=== PATIENT | female | born 1955 | race Caucasian/White ===

== ENCOUNTER → 2016-07-17 | Outpatient (CLI) | payer MEDICARE, MEDICAID ==
[~2016-07-17] MED LIST: AC325T; AC325T PO; AC500T PO; ACET-461 PO; ACET-93 PO; ACHD5005 PO; ALBU17AE3 IH; ALBU2.5V4 IH; ALBU8.5H2 IH; ALBUTERAL INHALER; ALPR.25T; ASP325TEC; ASPI-587 PO; ASPI-875 PO; ATOR20TA66 PO; ATR20T PO; ATRV10T PO; CALC-656 PO; CATHETER FLUSH 10 ML SYR IV PRN; CLIN300C11 PO; CLIN300C3 PO; COZ; CYCL10TA9 PO; DICY20TA57 PO; DOCU-143 PO; DOCU100C37 PO; DOCU50LI PO; DOXY100C2 PO; ENXP40I.4 SC; ESOM20SU PO; FLC100T1 PO; FURO-124 PO; FURO40TA4 PO; GABA250S2 PO; GBPN300C PO; HYDR-1231 PO; HYDR-3583 PO; HYDR-3812 PO; HYDR-3816 PO; HYDR-623; HYDR-757; HYDR-757 PO; HYDR1TAB66 PO; HYOS0.1283 SL; IBP800T PO; IBUP-1773 PO; INDO50CA PO; IOHEXOL 350 MG/ML 100 ML (OMNIPAQUE 350) VIAL IV ONE; IPRA3AMP19 IH; KETO10TA77 PO; LEVO125T6 PO; LEVO137T2; LEVO150T6 PO; LEVO500T69 PO; LVT.1T PO; Levothyroxine PO; Lipitor; MELO-195; METF500T4 PO; METO-333 PO; METO10TA3 PO; METR500T PO; MTP25TSR; NAPR-243 PO; NF-ESOM40C; NS 100 ML (IVPB) BAG IV ONE; NTR.4SL; OMEP20CA12 PO; OMEP20TA2 PO; OMEP40CA36 PO; ONDA-42 SL; ONDA4TAB8 PO; ONDA8TAB13 PO; ORPH100T PO; OXYC-12 PO; PHEN200T27 PO; PNT40TEC PO; POLY119P PO; POTA-53 PO; PRD20T PO; PROM25SU10 PR; RIVA20TA; RIVA20TA2 PO; SIME80TA16 PO; SIMV10TA3 PO; SUCR1TAB PO; SULF-222 PO; SULF1TAB35 PO; TEMA15CA54; THYR60TA4 PO; THYR90TA PO; TRAM-42 PO; TRAM50TA2 PO; TRM50T PO; WARF-48 PO; WARF5TAB PO; WARF6TAB PO; WARF6TAB7 PO; WARF7.5T PO; WARF7.5T49 PO; WRF2.5T PO; WRF3T PO; WRF5T PO; [UNRECOGNIZED DRUG - OTHER]
--- OUTSIDE RECORDS SUMMARY | 2016-07-17 07:03 | XMS REPORT | Continuity of Care Document ---
Author Author [facility] Organization [facility] Address Unknown Phone Unavailable Care Team Providers Care Drama Therapist Name Role Phone CanalesHellenTimmy PCP [phone] Source Comments Some departments are not documenting in the electronic medical record. If you do not see the information that you expected, contact Release of Information in the Health Information Management department at [phone] for further assistance in locating additional records.[facility] Active Allergies and Adverse Reactions Allergen Noted Date Severity Reactions Comments Adhesive Tape (Rosins) 03/23/2014 RASH Levothyroxine 03/23/2014 RASH Nexium 03/23/2014 ANAPHYLAXIS Penicillin G 03/23/2014 HIVES Current Medications Prescription Sig. Disp. Refills Start End Date Status Date atorvastatin (LIPITOR) 20 Take 20 mg by mouth Active mg tablet daily. naproxen sodium (ANAPROX) Take 550 mg by mouth Active 550 mg tablet twice daily with meals. rivaroxaban (XARELTO) 20 Take 20 mg by mouth. Active mg tab tablet omeprazole DR(+) Take 20 mg by mouth Active (PRILOSEC) 20 mg capsule daily. BABY ASPIRIN PO Take by mouth. Active HYDROcodone/acetaminophen Take 1 Tab by mouth as Active (NORCO; VICODIN) 5-325 mg Needed. tablet ACETAMINOPHEN (TYLENOL Take by mouth. Active PO) Active Problems Problem Noted Date Endometrial hyperplasia without atypia, complex 04/01/2014 Social History Tobacco Use Types Packs/Day Years Used Date Never Smoker Alcohol Use Drinks/Week oz/Week Comments No Last Filed Vital Signs Vital Sign Reading Time Taken Blood Pressure 143/86 03/23/2014 2:06 PM OCCUPATIONAL THERAPIST AIDE Pulse 76 03/23/2014 2:06 PM OCCUPATIONAL THERAPIST AIDE Temperature 37.1 C (98.8 F) 03/23/2014 2:06 PM OCCUPATIONAL THERAPIST AIDE Respiratory Rate - - Height - - Weight 147.056 kg (324 lb 3.2 03/23/2014 2:06 PM OCCUPATIONAL THERAPIST AIDE oz) Body Mass Index - - Oxygen Saturation 93% 03/23/2014 2:06 PM OCCUPATIONAL THERAPIST AIDE Plan of Care Health Maintenance Due Date Last Done Comments Physical (Comprehensive) 1964 Exam Pertussis Vaccine 1968 Tetanus Vaccine 1974 Cervical Cancer Screening 1978 Breast Cancer Screening 1997 Colorectal Cancer 12/10/2007 Screening Influenza Vaccine 01/10/2016 Results from Last 3 Months Not on file
[2016-07-17 07:19] LABS: BASOPHILS % (AUTO) 0 % (0-10); EOSINOPHILS # (AUTO) 0.1 10^3/uL (0.0-0.3); EOSINOPHILS % (AUTO) 1 % (0-10); LYMPHOCYTES # (AUTO) 2.3 X 10^3 (1.0-4.0); LYMPHOCYTES % (AUTO) 26 % (12-44); MEAN CORPUSCULAR HEMOGLOBIN 30 PG (25-34); MEAN CORPUSCULAR HGB CONC 32 G/DL (32-36); MEAN CORPUSCULAR VOLUME 95 FL (80-99); MEAN PLATELET VOLUME 10.8 FL (7.4-10.4); MONOCYTES # (AUTO) 0.6 X 10^3 (0.0-1.0); MONOCYTES % (AUTO) 7 % (0-12); NEUTROPHILS # (AUTO) 5.6 X 10^3 (1.8-7.8); NEUTROPHILS % (AUTO) 65 % (42-75); PLATELET COUNT 214 10^3/uL (130-400); RED BLOOD COUNT 4.33 10^6/uL (4.35-5.85); RED CELL DISTRIBUTION WIDTH 15.3 % (10.0-14.5); WHITE BLOOD COUNT 8.7 10^3/uL (4.3-11.0)
[2016-07-17 08:42] LABS: BLOOD UREA NITROGEN 13 MG/DL (7-18); BUN/CREATININE RATIO 16; CREATININE SERUM 0.81 MG/DL (0.60-1.30); GFR ESTIMATED > 60
--- NOTE | 2016-07-17 13:02 | Diagnostic Imaging Report ---
PROCEDURE: CT abdomen with contrast only. TECHNIQUE: Multiple contiguous axial images were obtained through the abdomen after the administration of intravenous contrast. INDICATION: Left-sided abdominal pain, colon cancer. FINDINGS: The previous CT abdomen/pelvis exam of 05/14/15 failed to show any sign of an acute abnormality. On this study, there is some distention of the transverse colon by gas. There is also a moderate amount of fecal material throughout the ascending colon. There are a few gas and fluid-filled segments of small bowel present as well. There is no sign of a bowel obstruction. There is no abdominal mass or free fluid collection identified. The liver is prominent and of lower density than usually seen. This appearance does suggest fatty metamorphosis and this finding is similar to the prior study. The spleen, pancreas, adrenals, kidneys, aorta and inferior vena cava are unremarkable for an acute abnormality. As noted on the prior exam, the gallbladder is surgically absent. The stomach is partially filled with fluid and consequently difficult to assess. The lung bases are generally clear. The heart is mildly enlarged. The bone windows show no evidence for a fracture or for a destructive lesion. IMPRESSION: 1. There is a fair amount of gas in the transverse colon. There is some gas and fluid in the small bowel. This appearance is nonspecific, however. There is no evidence for bowel obstruction. 2. No other acute abnormality is identified. However, if clinical concern regarding an underlying abnormality persists, then a followup CT abdomen and pelvis exam would be recommended for further study. 3. There is mild cardiomegaly. Dictated by: Dictated on workstation # [id number]
== END ==
LOC: RAD 06:58
PROVIDERS: ATTEND Nurse Practitioner Family
DX: R10.84 Generalized abdominal pain (principal); E66.01 Morbid (severe) obesity due to excess calories; Z68.43 Body mass index [BMI] 50.0-59.9, adult
CPT/HCPCS: 36415; 74160; 82565; 84520; 85025

== ENCOUNTER 2016-09-04 13:34 | Emergency (ER) | payer MEDICARE, MEDICAID ==
[~2016-09-04] VITALS: Ht 157.5 cm; Wt 148.8 kg
[~2016-09-04 13:34] MED LIST changes: -CATHETER FLUSH 10 ML SYR IV PRN; -IOHEXOL 350 MG/ML 100 ML (OMNIPAQUE 350) VIAL IV ONE; -LEVO137T2; -NS 100 ML (IVPB) BAG IV ONE; -TRAM-42 PO
[2016-09-04] MEDS ORDERED: HYDROcodone/APAP 7.5 MG/325 MG (LORTAB, LORCET PLUS) TABLET PO STA (14:44)
--- NOTE | 2016-09-04 14:57 | ED Upper Extremity ---
General Chief Complaint: Trauma-Non Activation Stated Complaint: FALL/ RIGHT KNEE INJ Nursing Triage Note: SEE TRAIGE Nursing Sepsis Screen: No Definite Risk History of Present Illness Time seen by provider: 14:40 Initial Comments Evaluation for right upper and lower extremity injuries. The patient was in her wheelchair being pushed by her , they hit a bump and the left we'll came off causing her to be injected forward onto her right hand and right knee. She denies hitting her head or having any loss of consciousness. She is now complaining of right wrist pain with numbness in her fingers and right knee pain. She denies any other injuries or sources of pain at the present time. Pain/Injury Location: right wrist, right hand, right other (right knee) Method of Injury: fell (from wheelchair) Modifying Factors: Improves With Immobilization, Improves With Rest Allergies and Home Medications Allergies Coded Allergies: methylprednisolone (Verified Allergy, Mild, 09/07/09) Penicillins (Unverified Allergy, Unknown, 08/28/11) ketorolac (Verified Allergy, Unknown, ITCHING, 04/12/15) promethazine (Unverified Allergy, Unknown, hallucinations, 02/02/14) venom-honey bee (Unverified Allergy, Unknown, 02/02/14) Uncoded Allergies: TAPE (Allergy, Unknown, 08/16/13) Home Medications Acetaminophen 500 Mg Tablet, 500 MG PO BID PRN for PAIN, (Reported) Levothyroxine Sodium 150 Mcg Tablet, 150 MCG PO HS, (Reported) Levothyroxine Sodium 137 Mcg Tablet, #30 (Reported) Metoprolol Tartrate 25 Mg Tablet, 12.5 MG PO BID, (Reported) TAKES 1/2 OF A (25 MG) TABLET Omeprazole 20 Mg Capsule.dr, 20 MG PO HS, (Reported) [facility] Ondansetron 4 Mg Tab.rapdis, 4 MG PO Q4H PRN for NAUSEA/VOMITING, (Reported) Simvastatin 10 Mg Tablet, 10 MG PO HS, (Reported) Tramadol HCl 50 Mg Tablet, 50 MG PO q8, #20 Ref 0 Prescribed by: MIRIAM SPENCER on 09/04/16 9029 Warfarin Sodium 5 Mg Tablet, 5 MG PO HS, (Reported) Constitutional: no symptoms reported, see HPI EENTM: no symptoms reported, see HPI Respiratory: no symptoms reported, see HPI Cardiovascular: no symptoms reported, see HPI Gastrointestinal: no symptoms reported, see HPI Genitourinary: no symptoms reported, see HPI Musculoskeletal: see HPI, joint pain (right wrist and knee) Skin: see HPI, other (superficial abrasions to the right and left palms. Tetanus shot in the last 3 years.) Psychiatric/Neurological: No Symptoms Reported, See HPI All Other Systems Reviewed Negative Unless Noted: Yes Past Yxuvcrt-Asgjqs-Jhurny Hx Patient Social History Alcohol Use: Denies Use Recreational Drug Use: No Recent Foreign Travel: No Contact w/Someone Who Travel: No Recent Infectious Disease Expo: No Recent Hopitalizations: No Immunizations Up To Date Tetanus Booster (TDap): Less than 5yrs Date of Pneumonia Vaccine: May 05, 2007 Seasonal Allergies Seasonal Allergies: Yes Surgeries HX Surgeries: Yes (D&C;NECK SURGERY;CARDIAC CATH;BREAST BX;COLONOSCOPY;UTERINE FIBROID RESECT) Surgeries: Appendectomy, Breast, Cardiac, Gallbladder, Hysterectomy, Orthopedic , Thyroidectomy Respiratory Hx Respiratory Disorders: Yes (CPAP @ HOME) Respiratory Disorders: Asthma, Pulmonary Embolism, Sleep Apnea Cardiovascular Hx Cardiac Disorders: Yes (2-PE HX) Cardiac Disorders: Coronary Artery Disease, Deep Vein Thrombosis, High Cholesterol, Hypertension, Peripheral Vascular, Syncope Neurological Hx Neurological Disorders: Yes (NEUROPATHY ARMS & FEET) Neurological Disorders: Neuropathy Reproductive System Hx Reproductive Disorders: Yes (FIBROIDS, CHRONIC PELVIC PAIN ) Sexually Transmitted Disease: No HIV/AIDS: No 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 SCIENTIST History: IUD, Menopausal Genitourinary Hx Genitourinary Disorders: Yes Genitourinary Disorders: Bladder Infection, Kidney Stones Gastrointestinal Hx Gastrointestinal Disorders: Yes Gastrointestinal Disorders: Gastroesophageal Reflux, Chronic Constipation, Gall Bladder Disease Musculoskeletal Hx Musculoskeletal Disorders: Yes (POOR MOBIILITY FROM OBESITY-USES MOTORIZED SCOOTER,CHRONIC GENERALIZED PAIN) Musculoskeletal Disorders: Degenerate Disk Disease, Arthritis, Back Injury, Chronic Back Pain, Spasms Endocrine Hx Endocrine Disorders: Yes (MORBID OBESITY) Endocrine Disorders: Hypothyroidsim HEENT HX ENT Disorders: Yes (WEARS GLASSES, DIFFICULTY SWALLOWING PILLS BUT NOT FOOD OR WATER) Cancer Hx Cancer: No Psychosocial Hx Psychiatric Problems: No Integumentary HX Skin/Integumentary Disorder: No Blood Transfusions Hx Blood Disorders: Yes (BLOOD CLOTS) Adverse Reaction to a Blood Tr: No Family Medical History Family Medial History: Arthritis G8 SISTER Cardiovascular disease 03 FATHER Colon cancer 03 MOTHER Completed stroke 03 MOTHER Hypertension 03 MOTHER G8 BROTHER Myocardial infarction 03 MOTHER Thyroid disease G8 SISTER Physical Exam Vital Signs Vital Sign - Last 12Hours 09/04/16 13:58 Temp 97.3 Pulse 63 Resp 18 B/P (MAP) 134/80 Pulse Ox 96 O2 Delivery Room Air Capillary Refill : Less Than 3 Seconds General Appearance: WD/WN, no apparent distress HEENT: PERRL/EOMI, normal ENT inspection, TMs normal, pharynx normal Neck: non-tender, full range of motion, supple, normal inspection Cardiovascular: normal peripheral pulses, regular rate, rhythm, no JVD Respiratory: chest non-tender, lungs clear, normal breath sounds Gastrointestinal: normal bowel sounds, non tender, soft Back: normal inspection, no CVA tenderness, no vertebral tenderness Shoulder: normal inspection, non-tender, normal ROM Elbow/Forearm: normal inspection, non-tender, normal ROM, Right Wrist: Yes normal inspection, Yes abrasions (superficial to the right palm), No asymmetry, Yes bone tenderness (right), No deformity, No ecchymosis, Yes limited ROM (right), No mass, Yes pain, Yes soft tissue tenderness, No swelling Hand: normal inspection, normal ROM, Right Neurologic/Tendon: normal sensation, normal motor functions, normal tendon functions Neurologic/Psychiatric: no motor/sensory deficits, alert, normal mood/affect, oriented x 3 Skin: normal color, warm/dry Lymphatic: no adenopathy Progress/Results/Core Measures Results/Orders My Orders Orders - MIRIAM SPENCER Wrist, Right, 3 Views Or More (09/04/16 14:44) Knee, Right, 3 Views (09/04/16 14:44) Hydrocodone/Apap 7.5/325 Tab (Lortab 7. (09/04/16 14:44) Vital Signs/I&O Vital Sign - Last 12Hours 09/04/16 09/04/16 13:58 16:13 Temp 97.3 97.3 Pulse 63 63 Resp 18 18 B/P (MAP) 134/80 Pulse Ox 96 96 O2 Delivery Room Air Blood Pressure Mean: 98 Progress Note : Time: 14:40 Progress Note Evaluation for right wrist and knee pain. We'll obtain x-rays and reevaluate the patient. 1520 x-rays negative for any acute injuries to the right knee and wrist. Abdoul wrap applied to the right wrist. Discharge instructions reviewed with patient, she agreed with this treatment plan. Diagnostic Imaging Diagonstic Imaging: Xray Comments NAME: OTONIEL DUNAWAY [facility] REC#: [id number] PT STATUS: REG ER : 1955 PHYSICIAN: MIRIAM SPENCER ADMIT DATE: 09/04/16/ER Signed Date of Exam: 09/04/16 KNEE, RIGHT, 3 VIEWS INDICATION: Right knee pain. EXAMINATION: Three views of right knee were obtained. FINDINGS: Degenerative changes of the patellofemoral and tibiofemoral joint spaces with joint space narrowing and peripheral osteophyte formation. There is no fracture or effusion seen. IMPRESSION: Degenerative changes of the right knee. No acute abnormality is seen. Dictated by: Dictated on workstation # [id number] Dict: 09/04/16 151 Trans: 09/04/16 152 Interpreted by: VINITA OLIVAS Electronically signed by: VINITA OLIVAS 09/04/16 152 NAME: OTONIEL DUNAWAY [facility] REC#: [id number] PT STATUS: REG ER : 1955 PHYSICIAN: MIRIAM SPENCER ADMIT DATE: 09/04/16/ER Signed Date of Exam: 09/04/16 WRIST, RIGHT, 3 VIEWS OR MORE INDICATION: Right wrist injury from a fall. EXAMINATION: Three views of the right wrist were obtained. FINDINGS: There is joint space narrowing of the first carpometacarpal joint. There is no fracture or dislocation. IMPRESSION: Osteoarthritic change of the first carpometacarpal joint. No acute abnormality is seen. Dictated by: Dictated on workstation # [id number] Dict: 09/04/16 1513 Trans: 09/04/16 152 Interpreted by: VINITA OLIVAS Electronically signed by: VINITA OLIVAS 09/04/16 152 Reviewed: Reviewed by Me Departure Impression Impression: Primary Impression: Fall from wheelchair Qualified Codes: W05.0XXA - Fall from non-moving wheelchair, initial encounter Additional Impression: Sprain of wrist, right Qualified Codes: S63.501A - Unspecified sprain of right wrist, initial encounter Disposition: HOME, SELF-CARE Condition: Improved Departure-Patient Inst. Decision time for Depature: 15:40 Referrals: JOSE ALBERTO ARIZA DO (PCP/Family) Primary Care Physician Patient Instructions: Contusion (DC), Wrist Sprain (DC) Add. Discharge Instructions: All discharge instructions reviewed with patient and/or family. Voiced understanding. Ice to right knee and right wrist 20 minutes every 2-3 hours. Use pain medication as needed for pain in the right wrist or right knee. Follow-up with Cami Hoyos APRN next week for continued symptoms. Return to emergency department for increased pain, difficulty using the right wrist or right knee or any new concerns. Use the Abdoul wrap during the day for the right wrist U can remove it at night. Scripts Tramadol HCl (Ultram) 50 Mg Tablet 50 MG PO q8 for Pain, #20 TAB 0 Refills Prov: MIRIAM SPENCER 09/04/16 MIRIAM SPENCER Sep 04, 2016 14:57
[2016-09-04] MEDS ORDERED: LEVO137T2 (15:01)
--- NOTE | 2016-09-04 15:16 | Diagnostic Imaging Report ---
INDICATION: Right knee pain. EXAMINATION: Three views of right knee were obtained. FINDINGS: Degenerative changes of the patellofemoral and tibiofemoral joint spaces with joint space narrowing and peripheral osteophyte formation. There is no fracture or effusion seen. IMPRESSION: Degenerative changes of the right knee. No acute abnormality is seen. Dictated by: Dictated on workstation # [id number]
--- NOTE | 2016-09-04 15:17 | Diagnostic Imaging Report ---
INDICATION: Right wrist injury from a fall. EXAMINATION: Three views of the right wrist were obtained. FINDINGS: There is joint space narrowing of the first carpometacarpal joint. There is no fracture or dislocation. IMPRESSION: Osteoarthritic change of the first carpometacarpal joint. No acute abnormality is seen. Dictated by: Dictated on workstation # [id number]
[2016-09-04] MEDS ORDERED: TRAM-42 PO (16:09)
[2016-09-04 16:13] VITALS: BP 134/80
== END 2016-09-04 16:13 | disposition home or self-care (01) ==
LOC: EDUNIT# 13:34 → ER 13:36
DX: S63.501A Unspecified sprain of right wrist, initial encounter (principal); S89.91XA Unspecified injury of right lower leg, initial encounter; M17.11 Unilateral primary osteoarthritis, right knee; M18.11 Unilateral primary osteoarthritis of first carpometacarpal joint, right hand; I10 Essential (primary) hypertension; I25.10 Atherosclerotic heart disease of native coronary artery without angina pectoris; E66.01 Morbid (severe) obesity due to excess calories; Z79.899 Other long term (current) drug therapy; Z86.718 Personal history of other venous thrombosis and embolism; W05.0XXA Fall from non-moving wheelchair, initial encounter; Y99.8 Other external cause status
CPT/HCPCS: 73110; 73562; 99285

== ENCOUNTER 2016-09-29 14:31 | Outpatient (RCR) | payer MEDICARE, MEDICAID ==
[~2016-09-29 14:31] MED LIST changes: +LEVO137T2; +TRAM-42 PO
[2016-09-29 14:58] LABS: INR 2.6 (0.8-1.4); PROTHROMBIN TIME PATIENT 27.5 SEC (12.2-14.7)
[2016-12-28] MEDS ORDERED: METH500T PO (15:18)
== END 2016-12-28 | disposition home or self-care (01) ==
LOC: LAB 14:31
PROVIDERS: ATTEND Internal Medicine Cardiovascular Disease
DX: Z51.81 Encounter for therapeutic drug level monitoring (principal); Z79.01 Long term (current) use of anticoagulants; Z86.711 Personal history of pulmonary embolism
CPT/HCPCS: 36415; 85610

== ENCOUNTER 2016-12-28 13:44 | Emergency (ER) | payer MEDICARE, MEDICAID ==
[~2016-12-28] VITALS: Ht 157.5 cm; Wt 148.8 kg
--- NOTE | 2016-12-28 14:50 | ED Headache ---
General Chief Complaint: Head/Cervical Problems Stated Complaint: HEADACHE Nursing Triage Note: PT ARRIVED TO ROOM BY WHEELCHAIR. PT STATES SHE HAS HAD A SEVERE DUBOIS SINCE THURSDAY. Nursing Sepsis Screen: No Definite Risk Source: patient History of Present Illness Time seen by provider: 14:15 Initial Comments PT ARRIVES VIA WHEELCHAIR C/O HEADACHE SINCE Thursday12/25/16 PAIN IS IN RIGHT OCCIPUT AND RADIATES TO RIGHT QUAKER SLIGHT BLURRY VISION IN RIGHT EYE NO DIZZINESS NO NAUSEA/VOMITING NO PARESTHESIAS OR MOTOR DEFICITS HAS HISTORY OF "MIGRAINES" BUT STATES "I DON'T GET HEADACHES WITH MY MIGRAINES, I JUST GET STROKE LIKE SYMPTOMS AND ONE SIDE OF MY FACE WILL DROOP" PT DOES NOT SEEN A NEUROLOGIST HAS NOT TAKEN ANYTHING FOR PAIN TODAY--TOOK A SINGLE ANACIN YESTERDAY WITHOUT RELIEF, HAS NOT TAKEN ANYTHING FOR PAIN AT ANY TIME PT STATES SHE HAS TRAMADOL AND HYDROCODONE AT HOME, BUT HAS NOT TAKEN EITHER ONE --STATES "I DON'T LIKE TO TAKE THEM UNLESS I HAVE TO" PT WITH MULTIPLE VISITS HERE--USUALLY VARIOUS PAIN COMPLAINTS PT ALSO FREQUENTS MULTIPLE PROVIDERS, MULTIPLE OTHER ER'S AND URGENT CARES IN [place] IN [facility], AND HAS RECEIVED MULTITUDE OF RX'S FOR NARCOTICS. PCP: KANG VIGIL Allergies and Home Medications Allergies Coded Allergies: methylprednisolone (Verified Allergy, Mild, 09/07/09) Penicillins (Unverified Allergy, Unknown, 08/28/11) ketorolac (Verified Allergy, Unknown, ITCHING, 04/12/15) promethazine (Unverified Allergy, Unknown, hallucinations, 02/02/14) venom-honey bee (Unverified Allergy, Unknown, 02/02/14) Uncoded Allergies: TAPE (Allergy, Unknown, 08/16/13) Home Medications Acetaminophen 500 Mg Tablet, 500 MG PO BID PRN for PAIN, (Reported) Levothyroxine Sodium 150 Mcg Tablet, 150 MCG PO HS, (Reported) Levothyroxine Sodium 137 Mcg Tablet, #30 (Reported) Metoprolol Tartrate 25 Mg Tablet, 12.5 MG PO BID, (Reported) TAKES 1/2 OF A (25 MG) TABLET Omeprazole 20 Mg Capsule.dr, 20 MG PO HS, (Reported) READY TO BE PICKED UP AT [facility] Ondansetron 4 Mg Tab.rapdis, 4 MG PO Q4H PRN for NAUSEA/VOMITING, (Reported) Simvastatin 10 Mg Tablet, 10 MG PO HS, (Reported) Tramadol HCl 50 Mg Tablet, 50 MG PO q8, #20 Ref 0 Prescribed by: MIRIAM SPENCER on 09/04/16 1609 Warfarin Sodium 5 Mg Tablet, 5 MG PO HS, (Reported) Constitutional: no symptoms reported Eyes: See HPI, Blurred Vision Ears, Nose, Mouth, Throat: no symptoms reported Respiratory: no symptoms reported Cardiovascular: no symptoms reported Gastrointestinal: no symptoms reported Genitourinary: no symptoms reported Musculoskeletal: no symptoms reported Skin: no symptoms reported Psychiatric/Neurological: See HPI, Headache, Denies Numbness, Denies Paresthesia, Denies Seizure, Denies Tingling, Denies Weakness Past Gbstbsj-Gghzim-Ojtueo Hx Patient Social History Alcohol Use: Denies Use Recreational Drug Use: No Smoking Status: Never a Smoker 2nd Hand Smoke Exposure: No Recent Foreign Travel: No Contact w/Someone Who Travel: No Recent Infectious Disease Expo: No Recent Hopitalizations: No Immunizations Up To Date Tetanus Booster (TDap): Less than 5yrs Date of Pneumonia Vaccine: May 05, 2007 Seasonal Allergies Seasonal Allergies: Yes Surgeries HX Surgeries: Yes (D&C;NECK SURGERY;CARDIAC CATH;BREAST BX;COLONOSCOPY;UTERINE FIBROID RESECT) Surgeries: Appendectomy, Breast, Cardiac, Gallbladder, Hysterectomy, Orthopedic , Thyroidectomy Respiratory Hx Respiratory Disorders: Yes (CPAP @ HOME) Respiratory Disorders: Asthma, Pulmonary Embolism, Sleep Apnea Cardiovascular Hx Cardiac Disorders: Yes (2-PE HX) Cardiac Disorders: Coronary Artery Disease, Deep Vein Thrombosis, High Cholesterol, Hypertension, Peripheral Vascular, Syncope Neurological Hx Neurological Disorders: Yes (NEUROPATHY ARMS & FEET) Neurological Disorders: Neuropathy Reproductive System Hx Reproductive Disorders: Yes (FIBROIDS, CHRONIC PELVIC PAIN ) Sexually Transmitted Disease: No HIV/AIDS: No 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: 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, Menopausal Genitourinary Hx Genitourinary Disorders: Yes Genitourinary Disorders: Bladder Infection, Kidney Stones Gastrointestinal Hx Gastrointestinal Disorders: Yes Gastrointestinal Disorders: Gastroesophageal Reflux, Chronic Constipation, Gall Bladder Disease Musculoskeletal Hx Musculoskeletal Disorders: Yes (POOR MOBIILITY FROM OBESITY-USES MOTORIZED SCOOTER,CHRONIC GENERALIZED PAIN) Musculoskeletal Disorders: Degenerate Disk Disease, Arthritis, Back Injury, Chronic Back Pain, Spasms Endocrine Hx Endocrine Disorders: Yes (MORBID OBESITY) Endocrine Disorders: Hypothyroidsim HEENT HX ENT Disorders: Yes (WEARS GLASSES, DIFFICULTY SWALLOWING PILLS BUT NOT FOOD OR WATER) Cancer Hx Cancer: No Psychosocial Hx Psychiatric Problems: No Integumentary HX Skin/Integumentary Disorder: No Blood Transfusions Hx Blood Disorders: Yes (BLOOD CLOTS) Adverse Reaction to a Blood Tr: No Family Medical History Family Medial History: Arthritis G8 SISTER Cardiovascular disease 03 FATHER Colon cancer 03 MOTHER Completed stroke 03 MOTHER Hypertension 03 MOTHER G8 BROTHER Myocardial infarction 03 MOTHER Thyroid disease G8 SISTER Physical Exam Vital Signs Vital Sign - Last 12Hours 12/28/16 14:02 Temp 97.6 Pulse 82 Resp 20 B/P (MAP) 136/82 Pulse Ox 95 O2 Delivery Room Air Capillary Refill : Less Than 3 Seconds General Appearance: obese (MORBID), other (VERY MALODOROUS; DOES NOT APPEAR TO BE IN ANY DISCOMFORT) HEENT: PERRL/EOMI, normal ENT inspection, TMs normal, pharynx normal Neck: full range of motion, supple, tender lateral (RIGHT POSTERIOR CERVICAL PARAVERTEBRAL MUSCLE TENDERNESS AND SPASM, PALPATION REPRODUCES SYMPTOMS) Cardiovascular: regular rate, rhythm Respiratory: normal breath sounds Psychiatric: alert, oriented x 3 Crainal Nerves: normal hearing, normal speech, PERRL Motor/Sensory: no motor deficit, no sensory deficit, no pronator drift Skin: normal color, warm/dry Progress/Results/Core Measures Results/Orders My Orders Orders - NORIS DOHERTY DO Ct Head Wo (12/28/16 14:30) Orphenadrine Injection (Norflex Injectio (12/28/16 15:15) Diphenhydramine Injection (Benadryl Inje (12/28/16 15:15) Dexamethasone Injection (Decadron Inject (12/28/16 15:15) Vital Signs/I&O Vital Sign - Last 12Hours 12/28/16 14:02 Temp 97.6 Pulse 82 Resp 20 B/P (MAP) 136/82 Pulse Ox 95 O2 Delivery Room Air Blood Pressure Mean: [address] HEAD--NO ACUTE PROCESS, PER RADIOLOGIST REPORT @ 1507 Reviewed: Reviewed by Me Departure Impression Impression: Primary Impression: Tension type headache Disposition: 01 HOME, SELF-CARE Condition: Stable Departure-Patient Inst. Referrals: JOSE ALBERTO ARIZA DO (PCP/Family) Primary Care Physician Patient Instructions: Tension Headache (DC) Add. Discharge Instructions: TAKE YOUR HOME PAIN MEDICATIONS PRESCRIBED MOIST HEAT TO AREA AT 20 MINUTE INTERVALS ACTIVITIES TOLERATED FOLLOW UP WITH [facility], IN 2-3 DAYS IF NO BETTER All discharge instructions reviewed with patient and/or family. Voiced understanding. Scripts Methocarbamol (Robaxin) 500 Mg Tablet 500 MG PO QID for Muscle Spasms, #20 TAB Prov: NORIS DOHERTY DO 12/28/16 NORIS DOHERTY DO Dec 28, 2016 14:50
--- NOTE | 2016-12-28 15:02 | Diagnostic Imaging Report ---
PROCEDURE: CT head without contrast. TECHNIQUE: Multiple contiguous axial images were obtained through the brain without the use of intravenous contrast. INDICATION: Headache. COMPARISON: 01/26/2013. FINDINGS: Ventricles are normal in size, shape, and position. There is no midline shift or mass effect. There is no hemorrhage or evidence of acute ischemia. The bony calvarium, visualized paranasal sinuses and mastoids are normal. IMPRESSION: Negative CT head. Dictated by: Dictated on workstation # [id number]
[2016-12-28] MEDS ORDERED: diphenhydrAMINE 50 MG/ML INJ (BENADRYL) IM ONE (15:15)
[2016-12-28] MEDS ORDERED: DEXAMETHASONE 4 MG/ML SDV (DECADRON) IM ONE (15:15)
[2016-12-28] MEDS ORDERED: ORPHENADRINE 60 MG/2 ML (NORFLEX) AMP IM ONE (15:15)
[2016-12-28] MEDS ORDERED: METH500T PO (15:18)
[2016-12-28 15:30] VITALS: BP 136/82
--- OUTSIDE RECORDS SUMMARY | 2016-12-29 03:27 | XMS REPORT | Clinical Summary ---
Author Author [facility] Organization [facility] Address Unknown Phone Unavailable Care Team Providers Care Museum Assistant Name Role Phone PCP Unavailable Source Comments Some departments are not documenting in the electronic medical record. If you do not see the information that you expected, contact Release of Information in the Health Information Management department at [phone] for further assistance in locating additional records.[facility] Allergies Active Allergy Reactions Severity Noted Date Comments Adhesive Tape (Rosins) RASH 03/23/2014 Levothyroxine RASH 03/23/2014 Esomeprazole Magnesium ANAPHYLAXIS 03/23/2014 Penicillin G HIVES 03/23/2014 Current Medications Prescription Sig. Disp. Refills Start [...] Date Endometrial hyperplasia without atypia, complex 04/01/2014 Family History Medical History Relation Name Comments Arthritis-osteo Brother Hypertension Brother Stroke Brother Unknown to Patient Father Arthritis-osteo Maternal Grandfather Asthma Maternal Grandfather Diabetes Maternal Grandfather Hypertension Maternal Grandfather Arthritis-osteo Maternal Grandmother Diabetes Maternal Grandmother Hypertension Maternal Grandmother Migraines Maternal Grandmother Cancer-Colon Mother Hypertension Mother Stroke Mother Cancer-Breast Paternal Aunt Cancer-Thyroid Paternal Aunt Cancer-Uterine Paternal Aunt Hypertension Paternal Aunt Migraines Paternal Aunt Depression Paternal Grandfather Seizures Paternal Grandfather Arthritis-osteo Paternal Uncle Diabetes Paternal Uncle High Cholesterol Paternal Uncle Arthritis-rheumatoid Sister Hypertension Sister Migraines Sister Thyroid Disease Sister Relation Name Status Comments Brother Father Maternal Grandfather Maternal Grandmother Mother Paternal Aunt Paternal Grandfather Paternal Uncle Sister Social History Tobacco Use Types Packs/Day Years Used Date Never Smoker Alcohol Use Drinks/Week oz/Week Comments No Sex Assigned at Date Recorded Not on file Last Filed Vital Signs Vital Sign Reading Time Taken Blood Pressure 143/86 03/23/2014 2:06 PM TRACK HOE OPERATOR Pulse 76 03/23/2014 2:06 PM TRACK HOE OPERATOR Temperature 37.1 C (98.8 F) 03/23/2014 2:06 PM TRACK HOE OPERATOR Respiratory Rate - - Oxygen Saturation 93% 03/23/2014 2:06 PM TRACK HOE OPERATOR Inhaled Oxygen - - Concentration Weight 147.1 kg (324 lb 3.2 oz) 03/23/2014 2:06 PM TRACK HOE OPERATOR Height - - Body Mass Index - - Plan of Treatment Health Maintenance Due Date Last Done Comments HEPATITIS C SCREENING 1957 PHYSICAL (COMPREHENSIVE) 1964 EXAM PERTUSSIS VACCINE 1968 TETANUS VACCINE 1974 CERVICAL CANCER SCREENING 12/10/1987 BREAST CANCER SCREENING 1997 COLORECTAL CANCER 12/10/2007 SCREENING INFLUENZA VACCINE 01/09/2017 Results Not on filefrom Last 3 Months
== END 2016-12-28 15:30 | disposition home or self-care (01) ==
LOC: EDUNIT# 13:44 → ER 13:45
DX: G44.209 Tension-type headache, unspecified, not intractable (principal); J45.909 Unspecified asthma, uncomplicated; I25.10 Atherosclerotic heart disease of native coronary artery without angina pectoris; E78.00 Pure hypercholesterolemia, unspecified; I10 Essential (primary) hypertension; I73.9 Peripheral vascular disease, unspecified; K21.9 Gastro-esophageal reflux disease without esophagitis; E66.01 Morbid (severe) obesity due to excess calories; E03.9 Hypothyroidism, unspecified; M19.90 Unspecified osteoarthritis, unspecified site; G47.30 Sleep apnea, unspecified; Z87.19 Personal history of other diseases of the digestive system; Z87.448 Personal history of other diseases of urinary system; Z86.718 Personal history of other venous thrombosis and embolism; Z80.0 Family history of malignant neoplasm of digestive organs; Z82.49 Family history of ischemic heart disease and other diseases of the circulatory system; Z79.01 Long term (current) use of anticoagulants; Z90.49 Acquired absence of other specified parts of digestive tract; Z90.710 Acquired absence of both cervix and uterus
CPT/HCPCS: 70450; 96372; 99284

== ENCOUNTER 2017-01-20 18:34 | Emergency (ER) | payer MEDICARE, MEDICAID ==
[~2017-01-20] VITALS: Ht 157.5 cm; Wt 148.8 kg
[~2017-01-20 18:34] MED LIST changes: +METH500T PO
--- OUTSIDE RECORDS SUMMARY | 2017-01-20 18:44 | XMS REPORT | Clinical Summary ---
Author Author [facility] Organization [facility] Address Unknown Phone Unavailable Care Team Providers Care Heating Fixture Tender Name Role Phone PCP Unavailable Source Comments Some departments are not documenting in the electronic medical record. If you do not see the information that you expected, contact Release of Information in the Health Information Management department at [phone] for further assistance in locating additional records.[facility] Allergies Active Allergy Reactions Severity Noted Date [...] Taken Blood Pressure 143/86 03/23/2014 2:06 PM ORDER ANALYST Pulse 76 03/23/2014 2:06 PM ORDER ANALYST Temperature 37.1 C (98.8 F) 03/23/2014 2:06 PM ORDER ANALYST Respiratory Rate - - Oxygen Saturation 93% 03/23/2014 2:06 PM ORDER ANALYST Inhaled Oxygen - - Concentration Weight 147.1 kg (324 lb 3.2 oz) 03/23/2014 2:06 PM ORDER ANALYST Height - - Body Mass Index - - Plan of Treatment Health Maintenance Due Date Last Done Comments HEPATITIS C SCREENING 1957 PHYSICAL (COMPREHENSIVE) 1964 EXAM PERTUSSIS VACCINE 1968 TETANUS VACCINE 1974 CERVICAL CANCER SCREENING 12/10/1987 BREAST CANCER SCREENING 1997 COLORECTAL CANCER 12/10/2007 SCREENING INFLUENZA VACCINE 01/09/2017 Results Not on filefrom Last 3 Months
--- OUTSIDE RECORDS SUMMARY | 2017-01-20 18:48 | XMS REPORT ---
Author Author PAYAL VIGIL Organization [facility] Address [address] [place] [address] Care Team Providers Care Food Service Sales Representatives Name Role Phone YARITZA PAYAL Unavailable PROBLEMS Type Condition ICD9-CM Code [id number] Code Onset Dates Condition Status SNOMED Code Problem Gastroesophageal reflux disease without esophagitis K21.9 Active 779789349 Problem Personal history of pulmonary embolism Z86.711 Active 774673963 Problem Arthritis M19.90 Active 3964430 Problem Hypothyroidism E03.9 Active 99396283 Problem Hypothyroidism, unspecified E03.9 Active 71676535 Problem Morbid obesity with BMI of 50.0-59.9, adult Z68.43 Active 783587035 Problem Other specified hypothyroidism E03.8 Active 06960231 Problem Hyperlipidemia, unspecified hyperlipidemia type E78.5 Active 63824144 Problem Metabolic syndrome E88.81 Active 67618230 ALLERGIES Substance Reaction Event Type Date Status Phenergan hallucinations Drug Allergy May, Active Nexium anaphylaxis Drug Allergy May, Active Methylprednisolone nausea and vomiting Drug Allergy May, Active Levothyroxine Sodium rash Drug Allergy May, Active Honey Bee Venom Unknown Drug Allergy May, Active Dexamethasone nausea and vomiting Drug Allergy May, Active Azithromycin hives Drug Allergy May, Active Amoxicillin hives Drug Allergy May, Active Tramadol HCl Unknown Drug Allergy May, Active Adhesive Unknown Non Drug Allergy May, Active Tape Unknown Non Drug Allergy May, Active SOCIAL HISTORY No smoking Hx information available PLAN OF CARE Activity Details Follow Up prn Reason: VITAL SIGNS Height 64 in 2016-05-26 Temperature 97.0 degrees Fahrenheit 2016-05-26 Heart Rate 88 bpm 2016-05-26 Respiratory Rate 20 2016-05-26 Blood pressure systolic 124 mmHg 2016-05-26 Blood pressure diastolic 86 mmHg 2016-05-26 MEDICATIONS Medication Instructions Dosage Frequency Start Date End Date Duration Status Furosemide 20 mg Orally Once a day 1 tablet 24h Nov, 10 days Active Test strips Test Strips ICD10- E11.9 fasting and 2 hours after one meal daily 2 times weekly. test blood sugar Aug, Active Glucometer glucometer ICD10- E11.9 fasting and 2 hours after one meal daily 3 times weekly. test blood sugar Aug, Active Hydrocodone-Acetaminophen 5-325 mg take 1 tablet by Oral route every 4 hours as needed for pain September, Active Naproxen 500 MG Orally every 12 hrs 1 tablet as needed 12h Dec, 90 days Active Levothyroxine Sodium 137 MCG TAKE ONE TABLET BY MOUTH ONCE DAILY IN THE MORNING ON AN EMPTY STOMACH Active Soothe Active Albuterol Sulfate 90 mcg/actuation inhale 1 puff by inhalation route every 4-6 hours as needed Jun, Active Albuterol Sulfate 2.5 mg /3 mL (0.083 %) 1 Each by Inhalation route every 4 hours for cough and wheezePRNfor wheezing or cough Nov, Active Omeprazole 20 mg Orally Once a day 1 tablet 24h Jan, Active Tylenol Extra Strength 500 MG Nov, Active Simvastatin 10 mg Orally Once a day 1 tablet in the evening 24h Aug, Active Warfarin Sodium 5 MG Orally Once a day 1 tablet 24h Active RESULTS No Results PROCEDURES Procedure Date Ordered Related Diagnosis Body Site [facility] VISIT ESTABLISHED PATIENT May 26, 2016 Office Visit, Arturo Pt., Level 3 May 26, 2016 IMMUNIZATIONS No Known Immunizations
[2017-01-20] MEDS ORDERED: TIZA4TAB3 (19:11)
--- NOTE | 2017-01-20 20:00 | Diagnostic Imaging Report ---
INDICATION: 61-year-old female, chest pain and shortness of breath. COMPARISONS: 02/16/2016. FINDINGS: Single view of the chest shows the cardiac contour to be upper limits of normal. There is mild central venous congestion. A few scattered atelectatic type infiltrates are seen but no significant consolidations. There is a previous lower cervical fusion. Soft tissues and bony thorax are senescent. IMPRESSION: Heart size is upper limits of normal with mild central venous congestion with few scattered alveolar infiltrates, but no significant consolidations. Dictated by: Dictated on workstation # [id number]
--- NOTE | 2017-01-20 20:10 | Diagnostic Imaging Report ---
PROCEDURE: US Carotid Duplex Bilateral. TECHNIQUE: Multiple real-time grayscale images were obtained over the carotid arteries in various projections bilaterally. Additional duplex Doppler and color Doppler images were also obtained. INDICATION: Dizziness. COMPARISONS: None. FINDINGS: There is minimal plaque seen at the origin of the right ICA. There is otherwise normal flow velocities, arterial waveforms, as well as normal flow seen by color Doppler in both common carotid arteries, carotid bifurcation, and proximal cervical internal carotid arteries. No areas of hemodynamically significant stenosis is seen. There is normal antegrade flow in the right vertebral artery. The left vertebral artery, however, is not visualized sonographically. IMPRESSION: 1. Minimal plaque in the right ICA origin, but no evidence of hemodynamically significant stenosis in the extracranial carotid circulation. 2. Absent flow in the left vertebral artery. Normal antegrade flow is seen in the right vertebral artery. Perhaps correlation with a CTA head and neck would be of further value to better assess this finding, especially given the patient's symptomatology of dizziness which may signify posterior circulation flow compromise. Dictated by: Dictated on workstation # [id number]
[2017-01-20 20:37] LABS: BASOPHILS % (AUTO) 0 % (0-10); EOSINOPHILS # (AUTO) 0.1 10^3/uL (0.0-0.3); EOSINOPHILS % (AUTO) 1 % (0-10); LYMPHOCYTES # (AUTO) 2.2 X 10^3 (1.0-4.0); LYMPHOCYTES % (AUTO) 20 % (12-44); MEAN CORPUSCULAR HEMOGLOBIN 30 PG (25-34); MEAN CORPUSCULAR HGB CONC 32 G/DL (32-36); MEAN CORPUSCULAR VOLUME 95 FL (80-99); MEAN PLATELET VOLUME 10.7 FL (7.4-10.4); MONOCYTES # (AUTO) 0.7 X 10^3 (0.0-1.0); MONOCYTES % (AUTO) 6 % (0-12); NEUTROPHILS # (AUTO) 7.7 X 10^3 (1.8-7.8); NEUTROPHILS % (AUTO) 72 % (42-75); PLATELET COUNT 203 10^3/uL (130-400); RED BLOOD COUNT 4.44 10^6/uL (4.35-5.85); RED CELL DISTRIBUTION WIDTH 15.2 % (10.0-14.5); WHITE BLOOD COUNT 10.6 10^3/uL (4.3-11.0)
[2017-01-20 20:46] LABS: BILIRUBIN,URINE NEGATIVE (NEGATIVE); KETONES,URINE 1+ (NEGATIVE); LEUKOCYTE ESTERASE ,URINE 2+ (NEGATIVE); NITRITE,URINE NEGATIVE (NEGATIVE); PH,URINE 5 (5-9); PROTEIN,URINE 1+ (NEGATIVE); UROBILINOGEN,URINE 1 MG/DL (NORMAL)
[2017-01-20 20:48] LABS: INR 1.9 (0.8-1.4)
[2017-01-20 20:59] LABS: ALANINE AMINOTRANSFERASE 27 U/L (0-55); ALBUMIN 3.8 GM/DL (3.2-4.5); ANION GAP 12 MMOL/L (5-14); ASPARTATE AMINO TRANSFERASE 29 U/L (5-34); BILIRUBIN,TOTAL 0.4 MG/DL (0.1-1.0); BLOOD UREA NITROGEN 9 MG/DL (7-18); BUN/CREATININE RATIO 11; CALCIUM 8.9 MG/DL (8.5-10.1); CARBON DIOXIDE 24 MMOL/L (21-32); CHLORIDE 102 MMOL/L (98-107); CREATININE SERUM 0.85 MG/DL (0.60-1.30); GFR ESTIMATED > 60; GLUCOSE 197 MG/DL (70-105); MAGNESIUM 2.2 MG/DL (1.8-2.4); SODIUM 138 MMOL/L (135-145); TOTAL PROTEIN 7.9 GM/DL (6.4-8.2)
[2017-01-20 21:19] LABS: THYROID STIMULATING HORMONE 2.51 UIU/ML (0.35-4.94); TROPONIN I < 0.30 NG/ML (<0.30)
[2017-01-20] MEDS ORDERED: NS 100 ML (IVPB) BAG IV ONE (21:45)
[2017-01-20] MEDS ORDERED: IOHEXOL 350 MG/ML 100 ML (OMNIPAQUE 350) VIAL IV ONE (21:45)
--- NOTE | 2017-01-20 22:02 | Diagnostic Imaging Report ---
PROCEDURE: CT angiography of the head and CT angiography of the neck with and without contrast. TECHNIQUE: Contiguous noncontrast images were obtained from the skull base through the vertex. After intravenous contrast administration, helical CT angiography of the neck was performed. Source data was reformatted into multiple MIP projections. Delayed post contrast acquisition was also obtained. INDICATION: 61-year-old female presents with headache, severe dizziness, nonvisualized vertebral artery on carotid ultrasound. COMPARISONS: Carotid Doppler 01/20/17. FINDINGS: There is normal arch origin of the great vessels. Both common carotid arteries are widely patent. Carotid bifurcations, cervical, high cervical and petrous segments of both ICA are normal. The study was not optimized for normal bolus mirna technique. Assessment of the intracranial circulation is limited. The carotid siphons appear to be widely patent. The visualized A1 and A2 segments of the ACAs, M1, M2 and visualized M3 segments of both MCAs are grossly normal. The vertebral arteries are patent with the right being dominant compared to the left. Both vertebral arteries are are however patent to the skull base. The PICA basilar artery, AICA SCA and rehab liaison are grossly unremarkable in this limited study. Lung apices are clear. The superior mediastinum is grossly unremarkable however there is beam hardening artifact due to the patient's large body habitus which does limit assessment. The parapharyngeal and paraspinous soft tissues are grossly unremarkable. A few shotty benign-appearing cervical nodes are seen. Mild cervical spondylosis is noted. IMPRESSION: 1. Minimal nonflow limiting right carotid bifurcation disease, otherwise unremarkable CTA neck. Both vertebral arteries are patent with the left being dominant when compared to the right. 2. The contrast bolus timing is suboptimal and assessment of the intracranial circulation is limited, however, overall no gross abnormalities identified in the anterior or posterior circulation. Additional nonemergent findings, as described above. Dictated by: Dictated on workstation # [id number]
[2017-01-20] MEDS ORDERED: oxyCODONE/APAP 5/325MG (PERCOCET 5) TABLET PO ONE (22:45)
[2017-01-20] MEDS ORDERED: CEFDINIR 300 MG (OMNICEF) CAP PO ONE (22:45)
[2017-01-20] MEDS ORDERED: CEFD300C3 PO (22:50)
--- NOTE | 2017-01-20 22:50 | ED General ---
General Chief Complaint: General Problems/Pain Stated Complaint: SOB,DIZZINESS,NAUSEA Nursing Triage Note: patient reports dizziness for a few months, headache for a month, palpitations for a few months, SOA for a month worse the past 3 days. patient reports was evaulated by PCP today and given script for muscle relaxers. Nursing Sepsis Screen: No Definite Risk Source of Information: Patient Exam Limitations: No Limitations History of Present Illness Time Seen by Provider: 19:10 Initial Comments This 61-year-old woman presents to the emergency room with multiple complaints. Her primary complaint is consistent recurrent daily headache for about one month and persistent lightheadedness. Patient states a history of migraines that typically involve weakness and paresthesia of the left face but not significant pain. She states these headaches are a new phenomenon for her. She also complains of dizziness described as a lightheadedness for a couple of months. She additionally reports some shortness of air for a few months worsening in recent days and palpitations. She was actually seen by her primary care provider earlier today and started on muscle relaxers. She reports her lightheadedness worsened after the appointment so she decided to present to the emergency department. She reports a history of carotid disease and states she gets carotid ultrasounds at Dr. Melara's office every 6 months. Patient had a cardiac catheter in August 2015 demonstrating mild to moderate coronary artery disease with 40 percent stenosis in the mid LAD, 50 percent stenosis in the proximal circumflex. She had an echocardiogram at the same time showing an ejection fraction of 50 percent. Patient presently is on warfarin therapy for history of pulmonary embolus Allergies and Home Medications Allergies Coded Allergies: methylprednisolone (Verified Allergy, Mild, 09/07/09) Penicillins (Unverified Allergy, Unknown, 08/28/11) ketorolac (Verified Allergy, Unknown, ITCHING, 04/12/15) promethazine (Unverified Allergy, Unknown, hallucinations, 02/02/14) venom-honey bee (Unverified Allergy, Unknown, 02/02/14) Uncoded Allergies: TAPE (Allergy, Unknown, 08/16/13) Home Medications Acetaminophen 500 Mg Tablet, 500 MG PO BID PRN for PAIN, (Reported) Cefdinir 300 Mg Capsule, 300 MG PO BID, #14 Prescribed by: CHARLES CUI on 01/20/17 2250 Levothyroxine Sodium 150 Mcg Tablet, 150 MCG PO HS, (Reported) Levothyroxine Sodium 137 Mcg Tablet, #30 (Reported) Methocarbamol 500 Mg Tablet, 500 MG PO QID, #20 Prescribed by: NORIS DOHERTY on 12/28/16 1518 Metoprolol Tartrate 25 Mg Tablet, 12.5 MG PO BID, (Reported) TAKES 1/2 OF A (25 MG) TABLET Omeprazole 20 Mg Capsule.dr, 20 MG PO HS, (Reported) READY TO BE PICKED UP AT [facility] Ondansetron 4 Mg Tab.rapdis, 4 MG PO Q4H PRN for NAUSEA/VOMITING, (Reported) Simvastatin 10 Mg Tablet, 10 MG PO HS, (Reported) Tizanidine HCl 4 Mg Tablet, (Reported) Tramadol HCl 50 Mg Tablet, 50 MG PO q8, #20 Ref 0 Prescribed by: MIRIAM SPENCER on 09/04/16 1609 Warfarin Sodium 5 Mg Tablet, 5 MG PO HS, (Reported) Constitutional: no symptoms reported EENTM: no symptoms reported Respiratory: see HPI Cardiovascular: see HPI Gastrointestinal: no symptoms reported Genitourinary: no symptoms reported : No Musculoskeletal: no symptoms reported Skin: no symptoms reported Psychiatric/Neurological: See HPI Hematologic/Lymphatic: No Symptoms Reported Immunological/Allergic: no symptoms reported Past Tuoiupc-Vvrrjh-Qgjehy Hx Patient Social History Alcohol Use: Denies Use Recreational Drug Use: No Smoking Status: Never a Smoker 2nd Hand Smoke Exposure: No Recent Foreign Travel: No Contact w/Someone Who Travel: No Recent Infectious Disease Expo: No Recent Hopitalizations: No Physical Abuse: No Sexual Abuse: No Immunizations Up To Date Tetanus Booster (TDap): Less than 5yrs Date of Pneumonia Vaccine: May 05, 2007 Seasonal Allergies Seasonal Allergies: Yes Surgeries History of Surgeries: Yes (D&C;NECK SURGERY;CARDIAC CATH;BREAST BX;COLONOSCOPY; UTERINE FIBROID RESECT) Surgeries: Appendectomy, Breast, Cardiac, Gallbladder, Hysterectomy, Orthopedic , Thyroidectomy Respiratory History of Respiratory Disorde: Yes (CPAP @ HOME) Respiratory Disorders: Asthma, Pulmonary Embolism, Sleep Apnea Currently Using CPAP: Yes (@ HS) Cardiovascular History of Cardiac Disorders: Yes (2-PE HX) Cardiac Disorders: Coronary Artery Disease, Deep Vein Thrombosis, High Cholesterol, Hypertension, Peripheral Vascular, Syncope Neurological History of Neurological Disord: Yes (NEUROPATHY ARMS & FEET) Neurological Disorders: Neuropathy Reproductive System Hx Reproductive Disorders: Yes (FIBROIDS, CHRONIC PELVIC PAIN ) Sexually Transmitted Disease: No HIV/AIDS: No AUT[employer]IC [employer]PER[employer] History: IUD, Menopausal Genitourinary History of Genitourinary Disor: Yes Genitourinary Disorders: Bladder Infection, Kidney Stones Gastrointestinal History of Gastrointestinal Di: Yes Gastrointestinal Disorders: Gastroesophageal Reflux, Chronic Constipation, Gall Bladder Disease Musculoskeletal History of Musculoskeletal Dis: Yes (POOR MOBIILITY FROM OBESITY-USES MOTORIZED SCOOTER,CHRONIC GENERALIZED PAIN) Musculoskeletal Disorders: Degenerate Disk Disease, Arthritis, Back Injury, Chronic Back Pain, Spasms Endocrine History of Endocrine Disorders: Yes (MORBID OBESITY) Endocrine Disorders: Hypothyroidsim HEENT History of HEENT Disorders: No Cancer History of Cancer: No Psychosocial History of Psychiatric Problem: No Suicide Risk Score: 0 Integumentary History of Skin or Integumenta: No Blood Transfusions History of Blood Disorders: Yes (BLOOD CLOTS) Adverse Reaction to a Blood Tr: No Family Medical History Family Medial History: Arthritis G8 SISTER Cardiovascular disease 03 FATHER Colon cancer 03 MOTHER Completed stroke 03 MOTHER Hypertension 03 MOTHER G8 BROTHER Myocardial infarction 03 MOTHER Thyroid disease G8 SISTER Physical Exam Vital Signs Vital Sign - Last 12Hours 01/20/17 19:03 Temp 97.8 Pulse 73 Resp 18 B/P (MAP) 140/80 Pulse Ox 94 O2 Delivery Room Air Capillary Refill : Less Than 3 Seconds General Appearance: WD/WN, Mild Distress (tearful) HEENT: PERRL/EOMI, Normal ENT Inspection, Pharynx Normal Neck: Normal Inspection, Supple Respiratory: Lungs Clear, Normal Breath Sounds, No Accessory Muscle Use, No Respiratory Distress Cardiovascular: Regular Rate, Rhythm, No Edema, No Murmur Gastrointestinal: Normal Bowel Sounds, Non Tender, Soft Extremity: Normal Inspection, No Pedal Edema Neurologic/Psychiatric: Alert, Oriented x3, No Motor/Sensory Deficits, Normal Mood/Affect, 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 Norm as Tested Skin: Normal Color, Warm/Dry Progress/Results/Core Measures Results/Orders Lab Results Laboratory Tests Test 01/20/17 20:30 01/20/17 20:35 Range/Units White Blood Count 10.6 4.3-11.0 10^3/uL Red Blood Count 4.44 4.35-5.85 10^6/uL Hemoglobin 13.3 11.5-16.0 G/DL Hematocrit 42 35-52 % Mean Corpuscular Volume 95 80-99 FL Mean Corpuscular Hemoglobin 30 25-34 PG Mean Corpuscular Hemoglobin Concent 32 32-36 G/DL Red Cell Distribution Width 15.2 H 10.0-14.5 % Platelet Count 203 130-400 10^3/uL Mean Platelet Volume 10.7 H 7.4-10.4 FL Neutrophils (%) (Auto) 72 42-75 % Lymphocytes (%) (Auto) 20 12-44 % Monocytes (%) (Auto) 6 0-12 % Eosinophils (%) (Auto) 1 0-10 % Basophils (%) (Auto) 0 0-10 % Neutrophils # (Auto) 7.7 1.8-7.8 X 10^3 Lymphocytes # (Auto) 2.2 1.0-4.0 X 10^3 Monocytes # (Auto) 0.7 0.0-1.0 X 10^3 Eosinophils # (Auto) 0.1 0.0-0.3 10^3/uL Basophils # (Auto) 0.0 0.0-0.1 10^3/uL Prothrombin Time 22.0 H 12.2-14.7 SEC INR Comment 1.9 H 0.8-1.4 Sodium Level 138 135-145 MMOL/L Potassium Level 4.0 3.6-5.0 MMOL/L Chloride Level 102 98-107 MMOL/L Carbon Dioxide Level 24 21-32 MMOL/L Anion Gap 12 5-14 MMOL/L Blood Urea Nitrogen 9 7-18 MG/DL Creatinine 0.85 0.60-1.30 MG/DL Estimat Glomerular Filtration Rate > 60 BUN/Creatinine Ratio 11 Glucose Level 197 H 70-105 MG/DL Calcium Level 8.9 8.5-10.1 MG/DL Magnesium Level 2.2 1.8-2.4 MG/DL Total Bilirubin 0.4 0.1-1.0 MG/DL Aspartate Amino Transf (AST/SGOT) 29 5-34 U/L Alanine Aminotransferase (ALT/SGPT) 27 0-55 U/L Alkaline Phosphatase 101 40-136 U/L Troponin I < 0.30 <0.30 NG/ML Total Protein 7.9 6.4-8.2 GM/DL Albumin 3.8 3.2-4.5 GM/DL Thyroid Stimulating Hormone (TSH) 2.51 0.35-4.94 UIU/ML Free Thyroxine 0.94 0.70-1.48 NG/DL Urine Color YELLOW Urine Clarity SLIGHTLY CLOUDY Urine pH 5 5-9 Urine Specific [place] 1.025 H 1.016-1.022 Urine Protein 1+ H NEGATIVE Urine Glucose (UA) NEGATIVE NEGATIVE Urine Ketones 1+ H NEGATIVE Urine Nitrite NEGATIVE NEGATIVE Urine Bilirubin NEGATIVE NEGATIVE Urine Urobilinogen 1 NORMAL MG/DL Urine Leukocyte Esterase 2+ H NEGATIVE Urine RBC (Auto) 3+ H NEGATIVE Urine RBC 2-5 H /HPF Urine WBC 5-10 H /HPF Urine Squamous Epithelial Cells 5-10 /HPF Urine Crystals NONE /LPF Urine Bacteria MODERATE H /HPF Urine Casts NONE /LPF Urine Mucus SMALL H /LPF Urine Culture Indicated YES My Orders Orders - CHARLES LOPEZ MD Cbc With Automated Diff (01/20/17 19:23) Comprehensive Metabolic Panel (01/20/17 19:23) Magnesium (01/20/17 19:23) Protime With Inr (01/20/17:23) Thyroid Stimulating Hormone (01/20/17 19:23) Troponin I (01/20/17 19:23) Ua Culture If Indicated (01/20/17 19:23) Saline Lock/Iv-Start (01/20/17 19:23) Ekg Tracing (01/20/17:23) Monitor-Rhythm Ecg Trace Only (01/20/17 19:23) Chest Pa/Lat (2 View) (01/20/17 19:23) Free T4 (Free Thyroxine) (01/20/17 19:23) Vitamin D 25-Hydroxy (01/20/17 19:23) Us Carotid Kori Complete 13413 (01/20/17 19:23) Urine Culture (01/20/17 20:35) Ct Angio Head/Neck (01/20/17 21:12) Iohexol Injection (Omnipaque 350 Mg/Ml 1 (01/20/17 21:45) Ns (Ivpb) (Sodium Chloride 0.9% Ivpb Bag (01/20/17 21:45) Oxycodone/Apap 5/325mg Tablet (Percocet (01/20/17 22:45) Cefdinir Capsule (Omnicef Capsule) (01/20/17 22:45) Medications Given in ED Current Medications Medications Dose Ordered Sig/Marcio Route Start Time Stop Time Status Last Admin Dose Admin Cefdinir 300 mg ONCE ONCE PO 01/20/17 22:45 01/20/17 22:47 DC 01/20/17 23:31 300 MG Iohexol 100 ml ONCE ONCE IV 01/20/17 21:45 01/20/17 21:53 DC 01/20/17 21:39 75 ML Oxycodone/ Acetaminophen 1 tab ONCE ONCE PO 01/20/17 22:45 01/20/17 22:47 DC 01/20/17 23:31 1 TAB Sodium Chloride 100 ml ONCE ONCE IV 01/20/17 21:45 01/20/17 21:53 DC 01/20/17 21:39 80 ML Vital Signs/I&O Vital Sign - Last 12Hours 01/20/17 01/20/17 19:03 23:33 Temp 97.8 97.8 Pulse 73 73 Resp 18 18 B/P (MAP) 140/80 Pulse Ox 94 94 O2 Delivery Room Air Blood Pressure Mean: 100 Progress Note : Progress Note Workup was relatively unremarkable with the exception of some suggestion of urinary tract infection and questionable infiltrates on the chest x-ray. Patient was started on Omnicef with her first dose being administered in the ER. A Percocet was given prior to dismissal to help her rest and treat her headache tonight. A vitamin D level was checked which will need to be reviewed by her primary care provider. The carotid ultrasound demonstrated questionable flow abnormality in the vertebral arteries. Follow-up CT angiogram was recommended by the radiologist and was performed. No significant abnormalities were found on the angiogram. ECG Initial ECG Impression Date: Jan 21, 2017 Initial ECG Impression Time: 19:32 Initial ECG Rate: 65 Initial ECG Rhythm: Normal Sinus Initial ECG Intervals: Normal Initial ECG Impression: Normal Comment Normal sinus rhythm with no ST elevation or depression. No abnormal intervals or axis deviation. Diagnostic Imaging Diagonstic Imaging: Xray Plain Films/CT/US/NM/MRI: chest Comments NAME: OTONIEL DUNAWAY [facility] REC#: [id number] PT STATUS: REG ER : 1955 PHYSICIAN: CHARLES LOPEZ MD ADMIT DATE: 01/20/17/ER Signed Date of Exam: 01/20/17 CHEST PA/LAT (2 VIEW) INDICATION: 61-year-old female, chest pain and shortness of breath. COMPARISONS: 02/16/2016. FINDINGS: Single view of the chest shows the cardiac contour to be upper limits of normal. There is mild central venous congestion. A few scattered atelectatic type infiltrates are seen but no significant consolidations. There is a previous lower cervical fusion. Soft tissues and bony thorax are senescent. IMPRESSION: Heart size is upper limits of normal with mild central venous congestion with few scattered alveolar infiltrates, but no significant consolidations. Dictated by: Dictated on workstation # [id number] Dict: 01/20/171954 Trans: 01/20/172034 Interpreted by: WOODROW RHODES MD Electronically signed by: WOODROW RHODES MD 01/20/172034 Diagonstic Imaging: Ultrasound Plain Films/CT/US/NM/MRI: other (bilateral carotid ultrasound) Comments NAME: OTONIEL DUNAWAY [facility] REC#: [id number] PT STATUS: REG ER : 1955 PHYSICIAN: CHARLES LOPEZ MD ADMIT DATE: 01/20/17/ER Signed Date of Exam: 01/20/17 US CAROTID KORI COMPLETE [id number] PROCEDURE: US Carotid Duplex Bilateral. TECHNIQUE: Multiple real-time grayscale images were obtained over the carotid arteries in various projections bilaterally. Additional duplex Doppler and color Doppler images were also obtained. INDICATION: Dizziness. COMPARISONS: None. FINDINGS: There is minimal plaque seen at the origin of the right ICA. There is otherwise normal flow velocities, arterial waveforms, as well as normal flow seen by color Doppler in both common carotid arteries, carotid bifurcation, and proximal cervical internal carotid arteries. No areas of hemodynamically significant stenosis is seen. There is normal antegrade flow in the right vertebral artery. The left vertebral artery, however, is not visualized sonographically. IMPRESSION: 1. Minimal plaque in the right ICA origin, but no evidence of hemodynamically significant stenosis in the extracranial carotid circulation. 2. Absent flow in the left vertebral artery. Normal antegrade flow is seen in the right vertebral artery. Perhaps correlation with a CTA head and neck would be of further value to better assess this finding, especially given the patient's symptomatology of dizziness which may signify posterior circulation flow compromise. Dictated by: Dictated on workstation # [id number] Dict: 01/20/172002 Trans: 01/20/172034 Interpreted by: WOODROW RHODES MD Electronically signed by: WOODROW RHODES MD 01/20/172034 Diagonstic Imaging: CT Plain Films/CT/US/NM/MRI: head, other (CT angiogram head and neck) Comments NAME: OTONIEL DUNAWAY [facility] REC#: [id number] PT STATUS: REG ER : 1955 PHYSICIAN: CHARLES LOPEZ MD ADMIT DATE: 01/20/17/ER Signed Date of Exam: 01/20/17 CT ANGIO HEAD/NECK PROCEDURE: CT angiography of the head and CT angiography of the neck with and without contrast. TECHNIQUE: Contiguous noncontrast images were obtained from the skull base through the vertex. After intravenous contrast administration, helical CT angiography of the neck was performed. Source data was reformatted into multiple MIP projections. Delayed post contrast acquisition was also obtained. INDICATION: 61-year-old female presents with headache, severe dizziness, nonvisualized vertebral artery on carotid ultrasound. COMPARISONS: Carotid Doppler 01/20/17. FINDINGS: There is normal arch origin of the great vessels. Both common carotid arteries are widely patent. Carotid bifurcations, cervical, high cervical and petrous segments of both ICA are normal. The study was not optimized for normal bolus mirna technique. Assessment of the intracranial circulation is limited. The carotid siphons appear to be widely patent. The visualized A1 and A2 segments of the ACAs, M1, M2 and visualized M3 segments of both MCAs are grossly normal. The vertebral arteries are patent with the right being dominant compared to the left. Both vertebral arteries are are however patent to the skull base. The PICA basilar artery, AICA SCA and fuller brush man are grossly unremarkable in this limited study. Lung apices are clear. The superior mediastinum is grossly unremarkable however there is beam hardening artifact due to the patient's large body habitus which does limit assessment. The parapharyngeal and paraspinous soft tissues are grossly unremarkable. A few shotty benign-appearing cervical nodes are seen. Mild cervical spondylosis is noted. IMPRESSION: 1. Minimal nonflow limiting right carotid bifurcation disease, otherwise unremarkable CTA neck. Both vertebral arteries are patent with the left being dominant when compared to the right. 2. The contrast bolus timing is suboptimal and assessment of the intracranial circulation is limited, however, overall no gross abnormalities identified in the anterior or posterior circulation. Additional nonemergent findings, as described above. Dictated by: Dictated on workstation # [id number] Dict: 01/20/172151 Trans: 01/20/172204 Interpreted by: WOODROW RHODES MD Electronically signed by: WOODROW RHODES MD 01/20/172204 Departure Impression Impression: Primary Impression: Recurrent headache Additional Impressions: Lightheadedness Palpitations Urinary tract infection Qualified Codes: N39.0 - Urinary tract infection, site not specified Disposition: 01 HOME, SELF-CARE Condition: Improved Departure-Patient Inst. Decision time for Depature: 22:40 Referrals: JOSE ALBERTO ARIZA DO (PCP) Primary Care Physician PAYAL VIGIL APRN (Family) Primary Care Physician Patient Instructions: Urinary Tract Infection, Adult (DC) Add. Discharge Instructions: Complete your antibiotics as prescribed. Drink plenty of clear liquids. Contact your primary care provider and schedule a follow-up appointment within the next week. You should also ask your primary care provider to follow-up on your urine culture results on Thursday. Return to the emergency room if symptoms worsen. Review the results of the vitamin D level test at your follow-up appointment. I would suggest having your INR checked again in a few days as antibiotic use may alter her INR level. All discharge instructions reviewed with patient and/or family. Voiced understanding. Scripts Cefdinir (Cefdinir) 300 Mg Capsule 300 MG PO BID, #14 CAP Prov: CHARLES LOPEZ MD 01/20/17 Copy Copies To 1: JOSE ALBERTO ARIZA DO Copies To 2: REAGAN MELARA MD, JOSHUA T MD Jan 20, 2017 22:50
[2017-01-20 23:33] VITALS: BP 140/80
== END 2017-01-20 23:32 | disposition home or self-care (01) ==
LOC: EDUNIT# 18:34 → ER 18:36
DX: R51 Headache (principal); R42 Dizziness and giddiness; N39.0 Urinary tract infection, site not specified; R00.2 Palpitations; J45.909 Unspecified asthma, uncomplicated; I25.10 Atherosclerotic heart disease of native coronary artery without angina pectoris; G47.30 Sleep apnea, unspecified; E78.00 Pure hypercholesterolemia, unspecified; I10 Essential (primary) hypertension; I73.9 Peripheral vascular disease, unspecified; K21.9 Gastro-esophageal reflux disease without esophagitis; E66.01 Morbid (severe) obesity due to excess calories; E03.9 Hypothyroidism, unspecified; M19.90 Unspecified osteoarthritis, unspecified site; Z86.718 Personal history of other venous thrombosis and embolism; Z97.5 Presence of (intrauterine) contraceptive device; Z87.19 Personal history of other diseases of the digestive system; Z86.79 Personal history of other diseases of the circulatory system; Z87.448 Personal history of other diseases of urinary system; Z80.0 Family history of malignant neoplasm of digestive organs; Z82.49 Family history of ischemic heart disease and other diseases of the circulatory system; Z87.442 Personal history of urinary calculi; Z79.01 Long term (current) use of anticoagulants; Z90.49 Acquired absence of other specified parts of digestive tract; Z90.710 Acquired absence of both cervix and uterus; Z90.89 Acquired absence of other organs
CPT/HCPCS: 36415; 70496; 70498; 71020; 80053; 81000; 82306; 83735; 84439; 84443; 84484; 85025; 85610; 87088; 93005; 93880

== ENCOUNTER → 2017-02-05 | Outpatient (CLI) | payer MEDICARE, MEDICAID ==
[~2017-02-05] MED LIST changes: +CEFD300C3 PO; +TIZA4TAB3
== END ==
LOC: RAD 12:52
PROVIDERS: ATTEND Nurse Practitioner Family
DX: M54.2 Cervicalgia (principal); Z53.29 Procedure and treatment not carried out because of patient's decision for other reasons

== ENCOUNTER → 2017-07-10 | Outpatient (CLI) | payer MEDICARE, MEDICAID ==
[~2017-07-10] MED LIST changes: +HYDR-34 PO; -HYDR-3812 PO; -HYDR-3816 PO
--- NOTE | 2017-07-10 14:18 | Diagnostic Imaging Report ---
PROCEDURE: CT urinary tract, rule out kidney stone. TECHNIQUE: Multiple contiguous axial images were obtained through the abdomen and pelvis without the use of intravenous contrast. INDICATION: History of kidney stones. Patient has increasing costovertebral tenderness and abdominal pain for the last three days. COMPARISON: Comparison is made with prior CT from 07/17/2016. FINDINGS: Lung bases demonstrate linear parenchymal opacities in bilateral lung bases, suggestive of scarring or atelectasis. No discrete liver mass is identified. The gallbladder is surgically absent. The pancreas and spleen are unremarkable. Adrenal glands are unremarkable. No renal calculi are detected. No hydronephrosis is detected. Aorta is calcified but nonaneurysmal. Moderate stool in the colon is noted. The small bowel loops are nondilated. There is no ascites. The bladder is decompressed but unremarkable. IMPRESSION: 1. Bibasilar atelectasis or scarring. 2. No evidence of urinary tract calculi or obstruction. No acute feature is identified. Dictated by: Dictated on workstation # [id number]
== END ==
LOC: RAD 12:47
PROVIDERS: ATTEND Nurse Practitioner Family
DX: J98.11 Atelectasis (principal); Z87.442 Personal history of urinary calculi
CPT/HCPCS: 74176

== ENCOUNTER → 2017-08-05 | Outpatient (CLI) | payer MEDICARE, MEDICAID ==
[~2017-08-05] VITALS: Ht 157.5 cm; Wt 142.9 kg
[~2017-08-05] MED LIST changes: +CATHETER FLUSH 10 ML SYR IV PRN; +REGADENOSON 0.4 MG/5 ML SYR (LEXISCAN) IV ONE
[2017-08-05 13:01] VITALS: BP 139/118
[2017-08-05 13:08] VITALS: BP 132/93
--- NOTE | 2017-08-05 18:17 | STRESS TEST ---
DATE OF SERVICE: 08/05/2017 LEXISCAN MYOVIEW STRESS TEST REPORT REFERRING PHYSICIAN: Ebony Lobo DO center. Baseline heart rate is 59, baseline blood pressure 126/76. Baseline EKG is sinus rhythm with no ischemic changes. In summary, the patient received 10.56 mCi of technetium-99 Myoview and the resting images were obtained. Then, the patient received 0.4 mg of Lexiscan followed by 30.6 mCi of technetium-99 Myoview. Throughout the test, there were no EKG changes. The resting and stress images were reviewed and compared in the short axis, horizontal long axis, and vertical long axis views. Review of the stress images showed good radiotracer uptake. On the resting images, there is decreased uptake at the mid to apical anterior wall and anterolateral wall with breast attenuation, which appeared to be reversed redistribution images. Stress score is 10. SDS is 10, TID value 1.04. On the gated images, the left ventricle appeared to be normal size with normal contractility. Calculated ejection fraction of 56%. CONCLUSION: 1. The patient tolerated Lexiscan well. 2. Nondiagnostic SPECT images with reverse redistribution, the stress images appeared normal, the resting images has decreased uptake at the mid to apical anterior wall, SSS is 10, SDS is 10. 3. Normal left ventricular size with normal contractility. Calculated ejection fraction of 56%. Job ID: [id number] DocumentID: [id number] Dictated Date: 08/05/2017 15:25:56 Pearl Diver Date: 08/05/2017 18:16:39 Dictated By: REAGAN MCNEILL MD
== END ==
LOC: CARD 10:36
PROVIDERS: ATTEND Physician Assistant
DX: I25.10 Atherosclerotic heart disease of native coronary artery without angina pectoris (principal); R07.89 Other chest pain; R06.09 Other forms of dyspnea; I10 Essential (primary) hypertension
CPT/HCPCS: 78452; 93017; 93306

== ENCOUNTER 2017-08-19 08:24 | Day surgery (SDC) | payer MEDICARE, MEDICAID ==
[~2017-08-19] VITALS: Ht 157.5 cm; Wt 142.9 kg
[2017-08-19] VITALS (15 sets, daily range): BP systolic 98–132; BP diastolic 50–83
[~2017-08-19 08:24] MED LIST changes: -CATHETER FLUSH 10 ML SYR IV PRN; -INDO50CA PO; +INDO50CA11 PO; -METF500T4 PO; +METF500T5 PO; -REGADENOSON 0.4 MG/5 ML SYR (LEXISCAN) IV ONE
[2017-08-19] MEDS ORDERED: HEParin (CATH LAB) 2,000 ML IV ONE ×2 (08:31→15:18)
[2017-08-19] MEDS ORDERED: NS IV 1000 ML 1,000 ML ONE (08:31)
[2017-08-19] MEDS ORDERED: NS IV 1000 ML 1,000 ML IV SCH (08:39)
--- NOTE | 2017-08-19 09:02 | Diagnostic Imaging Report ---
INDICATION: Chest pain and hypertension. TIME OF EXAM: 8:48 AM Correlation is made with prior study from 01/20/2017. FINDINGS: The heart is enlarged, but stable. The pulmonary vascularity is normal. No infiltrate or evidence of congestive failure is identified. No effusion or pneumothorax is seen. There are postop changes in the lower cervical spine. IMPRESSION: No acute cardiopulmonary process is detected. Dictated by: Dictated on workstation # [id number]
[2017-08-19 09:16] LABS: BILIRUBIN,URINE NEGATIVE (NEGATIVE); CLARITY,URINE CLEAR; COLOR,URINE YELLOW; GLUCOSE, URINE (UA) NEGATIVE (NEGATIVE); KETONES,URINE NEGATIVE (NEGATIVE); LEUKOCYTE ESTERASE ,URINE 2+ (NEGATIVE); NITRITE,URINE NEGATIVE (NEGATIVE); PH,URINE 5 (5-9); PROTEIN,URINE 1+ (NEGATIVE); UROBILINOGEN,URINE NORMAL (NORMAL)
[2017-08-19 09:23] LABS: HEMOGLOBIN 13.4 G/DL (11.5-16.0); RED BLOOD COUNT 4.57 10^6/uL (4.35-5.85); RED CELL DISTRIBUTION WIDTH 15.3 % (10.0-14.5); WHITE BLOOD COUNT 9.3 10^3/uL (4.3-11.0)
[2017-08-19 09:27] LABS: RBC,URINE RARE /HPF
[2017-08-19 09:28] LABS: BACTERIA,URINE MODERATE /HPF
[2017-08-19 09:29] LABS: INR 1.3 (0.8-1.4)
[2017-08-19 09:38] LABS: ALANINE AMINOTRANSFERASE 22 U/L (0-55); ALBUMIN 4.1 GM/DL (3.2-4.5); ALKALINE PHOSPHATASE 99 U/L (40-136); BILIRUBIN,TOTAL 0.6 MG/DL (0.1-1.0); BUN/CREATININE RATIO 14; CALCIUM 9.5 MG/DL (8.5-10.1); CARBON DIOXIDE 24 MMOL/L (21-32); CHLORIDE 104 MMOL/L (98-107); CHOLESTEROL 249 MG/DL (< 200); CREATININE SERUM 0.86 MG/DL (0.60-1.30); GFR ESTIMATED > 60; GLUCOSE 121 MG/DL (70-105); HDL CHOLESTEROL 38 MG/DL (40-60); POTASSIUM 3.9 MMOL/L (3.6-5.0); SODIUM 140 MMOL/L (135-145); TOTAL PROTEIN 8.1 GM/DL (6.4-8.2); TRIGLYCERIDES 216 MG/DL (<150); VLDL CHOLESTEROL 43 MG/DL (5-40)
[2017-08-19] MEDS ORDERED: ACHD5005 PO (09:47)
[2017-08-19] MEDS ORDERED: TOPI50TA13 PO ×2 (09:47)
[2017-08-19] MEDS ORDERED: ALBU2.5V4 NEB ×2 (09:47)
[2017-08-19] MEDS ORDERED: WARF-48 PO ×2 (09:47)
[2017-08-19] MEDS ORDERED: ALBU18HF2 INH ×2 (09:47)
[2017-08-19] MEDS ORDERED: NAPR220T66 PO ×2 (09:47)
[2017-08-19] MEDS ORDERED: OMEP20CA12 PO ×2 (09:47)
[2017-08-19] MEDS ORDERED: SIMV20TA3 PO (10:03)
--- NOTE | 2017-08-19 12:01 | Cardiac Procedure Note-CS/ASA ---
Pre-Procedure Note Pre-Op Procedure Note H&P Reviewed The H&P was reviewed, patient examined and no changes noted. Date H&P Reviewed: Aug 19, 2017 Time H&P Reviewed: 12:00 Conscious Sedation Pre-Proced Time Reviewed: 12:00 ASA Class: 3 Airway Mallampati Classification: ([place] appropriate class) I. II. III, IV Lungs Heart ASA score ASA 1: a normal healthy patient ASA 2: a patient with a mild systemic disease (mid diabetes, controlled hypertension, obesity x ASA 3: a patient with a severe systemic disease that limits activity (angina , COPD, prior Myocardial infarction) ASA 4: a patient with an incapacitating disease that is a constant threat to life (CHF, renal failure) ASA 5: a moribund patient not expected to survive 24 hrs. (ruptured aneurysm) ASA 6: a declared brain patient whose organs are being harvested. For emergent operations, add the letter E after the classification Grade 3 Sedation Plan: Analgesia, Amnesia, Plan communicated to team members, Discussed options with patient/fam, Discussed risks with patient/fam Note The patient is an appropriate candidate to undergo the planned procedure, sedation, and anesthesia. The patient immediately re-assessed prior to indication. REAGAN MCNEILL MD Aug 19, 2017 12:01
[2017-08-19] MEDS ORDERED: LIDOCAINE 1% INJ 50 ML (XYLOCAINE) VIAL ONE ×2 (12:13→15:11)
[2017-08-19] MEDS ORDERED: fentaNYL INJECTION 100 MCG/2 ML AMP ONE ×3 (12:15→14:37)
[2017-08-19] MEDS ORDERED: MIDAZOLAM 5 MG/5 ML (VERSED) VIAL ONE (12:15)
[2017-08-19] MEDS ORDERED: HEParin 1000 UNIT/ML (10ML VIAL) FOR BOLUS ONE ×2 (13:17→14:37)
[2017-08-19] MEDS ORDERED: MIDAZOLAM 2 MG/2 ML (VERSED) VIAL ONE ×2 (13:27→14:36)
[2017-08-19] MEDS ORDERED: NITRO DRIP 25000 MCG/D5W 250 ML IV ONE ×2 (13:35→13:57)
[2017-08-19] MEDS ORDERED: EPTIFIBATIDE BOLUS 10 ML IV ONE (14:02)
[2017-08-19] MEDS ORDERED: ASPIRIN 325 MG (5 GR) TABLET ONE (14:03)
[2017-08-19] MEDS ORDERED: CLOPIDOGREL 300 MG (PLAVIX) TABLET PO ONE (14:03)
[2017-08-19] MEDS ORDERED: morphine INJ 10 MG/ML 1ML (SYR OR VIAL) ONE (14:10)
--- NOTE | 2017-08-19 14:14 | Cardiac Cath Report ---
Cardiac Cath Report Physician (s)/Topstitcher Lockstitch (s) Physician REAGAN MCNEILL MD Pre-Procedure Diagnosis Pre-Procedure Diagnosis: Chest pain, coronary artery disease Post-Procedure Note Procedure Start Date: Aug 19, 2017 Name of Procedure: Left heart catheterization Angioplasty and stent to the right coronary artery Angioplasty and stent to the circumflex artery Findings/Procedure Note PROCEDURE NOTE: After explaining the procedure to the patient, all pros and cons were explained , all questions were answered. The patient signed the consent and then she was placed on the cardiac catheterization laboratory. Groin was prepped SL fashion local anesthesia was used. Sheath placed in the right femoral artery. Tim right and left catheter were used to access the coronary system. Tim right was prolapsed into the left ventricular cavity pressure was measured. Patient had anomalous origin of the right coronary artery, subselective injection was done, appears to have subtotal occlusion of the mid right coronary artery. I used multiple guides, was able to intubate the right with the multipurpose 1 guide BMW wire was advanced and predilatation using 3.015 mm balloon then I proceeded with deployment of a Alpine drug eluting stent 3.5 18 mm expanded to 3.6 mm with excellent results. Circumflex artery has 80 percent stenosis at the mid to distal portion. I used FL guide and advanced BMW wire, predilatation with 3.0 balloon then I used alpine stent 3.023 mm deployed under 12 mikal with excellent results, a small branch less than 1 mm was jailed with the stent. after taking the patient off the table she started having worsening chest pain, I started her on nitroglycerin drip and give her Integrilin, continue to have worsening chest pain, took her back to the Facility Assistant did a second access to the right femoral artery and advanced FL guide, angiogram showed reestablishment of the flow in that small branch. I tried to access it with whisper extra support without success, after multiple attempts I was concerned about having more complication. At that point patient was feeling better, there is better flow in the branch. I decided to stop the procedure No left ventriculogram was done, pressure was measured At the end of the procedure the sheath was removed. Closure device FINDINGS: Hemodynamics LV 136/16, end-diastolic pressure of 16 Aorta 129/68 mean of 93 ANATOMY: Left Main has mild disease nonobstructive disease Left Anterior Descending has mild disease at the midportion nonobstructive disease tortuous artery Left Circumflex moderate in size artery, has mild disease proximally followed by severe disease at the midportion in fall being 2 bifurcations, successful balloon angioplasty then stent deployment using drug-eluting stent Alpine 3.0 23 mm expanded to 3.1 mm with excellent results, one small branch less than 1 mm in size was jailed with the stent, patient had some chest pain improved after nitroglycerin. Right Coronory Artery has anomalous origin, MP 1 guide was used, subtotal occlusion at the midportion, successful balloon angioplasty then deployment of Alpine stent 3.518 mm expanded to 3.6 mm with excellent results, distal right coronary artery has mild disease LV Gram was not done, normal left ventricular end-diastolic pressure CONCLUSION: 1. 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 Successful balloon angioplasty then stent deployment using drug-eluting stent at Alpine 3.5 18 mm expanded to 3.6 mm with excellent results, the distal right coronary artery has mild to moderate disease. 2. Mild disease at the proximal circumflex artery, severe disease at the midportion involving two branches, successful balloon angioplasty then stent deployment using Alpine 3.023 mm expanded to 3.1 mm with excellent results distally, small branch less than 1 mm was jailed by the stent, patient had significant pain, reevaluate that artery and the artery still jailed but has good flow. 3. Mild disease at the LAD, tortuous artery 4. Normal left ventricular end-diastolic pressure DISCUSSION AND RECOMMENDATION: I we will continue maximizing medical therapy. Patient had elevated LDL, I will change simvastatin to Lipitor 80 mg daily, add fish oil, continue on aspirin and Plavix. Anesthesia Type: Conscious Sedation Estimated blood loss (mL): 20 ml Contrast Amount: 324 ml Total Radiation Dose: 3750 mGy Post-Procedure Diagnosis Post-operative diagnosis: Unstable angina Coronary artery disease Hypertension Hyperlipidemia REAGAN MCNEILL MD Aug 19, 2017 14:14
[2017-08-19] MEDS ORDERED: ALBUTEROL SULFATE INH PRN (14:15)
[2017-08-19] MEDS ORDERED: RT-ALBUTEROL SULF 2.5 MG/3 ML PRE-MIX VIAL IH PRN ×2 (14:15→20:00)
[2017-08-19] MEDS ORDERED: NON-FORMULARY MEDICATION 1 EA EA (Topiramate 100 MG) PO PRN (14:15)
[2017-08-19] MEDS ORDERED: NON-FORMULARY MEDICATION 1 EA EA (Acetaminophen 500 MG) PO PRN (14:15)
[2017-08-19] MEDS ORDERED: PATIENT MAY USE OWN MEDS, ALL PO SCH (14:15)
[2017-08-19] MEDS ORDERED: NS (IVPB) 250 ML ONE (14:47)
[2017-08-19] MEDS ORDERED: niCARdipine 25 MG/10 ML (CARDENE) AMP IV ONE (14:47)
[2017-08-19] MEDS ORDERED: EPTIFIBATIDE DRIP 100 ML IV ONE (14:52)
[2017-08-19] MEDS ORDERED: ACETAMINOPHEN 500 MG TAB (TYLENOL) PO PRN (18:00)
[2017-08-19] MEDS ORDERED: warFARin 5 MG (COUMADIN) TAB PO SCH (18:00)
[2017-08-19] MEDS ORDERED: EPTIFIBATIDE DRIP 100 ML IV SCH (19:30)
[2017-08-19] MEDS: OMEGA 3 (FISH OIL) 1000 MG CAP PO SCH (19:56)
[2017-08-19] MEDS: NS IV 1000 ML 1,000 ML IV SCH (19:59)
[2017-08-19] MEDS ORDERED: toPIRamate 100 MG (TOPAMAX) TAB PO PRN (20:00)
[2017-08-19] MEDS ORDERED: LEVOTHYROXINE SODIUM 150 MCG PO SCH (21:00)
[2017-08-19] MEDS ORDERED: LEVOTHYROXINE 150 MCG (LEVOTHROID) TAB PO SCH (21:00)
[2017-08-19] MEDS ORDERED: ATORVASTATIN 80 MG (LIPITOR) TABLET PO SCH (21:00)
[2017-08-20] VITALS (9 sets, daily range): BP systolic 102–135; BP diastolic 52–82
[2017-08-20] MEDS: NS IV 1000 ML 1,000 ML IV SCH (02:55)
[2017-08-20 04:36] LABS: BASOPHILS % (AUTO) 0 % (0-10); EOSINOPHILS # (AUTO) 0.2 10^3/uL (0.0-0.3); EOSINOPHILS % (AUTO) 2 % (0-10); HEMATOCRIT 36 % (35-52); HEMOGLOBIN 11.3 G/DL (11.5-16.0); LYMPHOCYTES # (AUTO) 1.7 X 10^3 (1.0-4.0); LYMPHOCYTES % (AUTO) 18 % (12-44); MEAN CORPUSCULAR HEMOGLOBIN 30 PG (25-34); MEAN CORPUSCULAR HGB CONC 32 G/DL (32-36); MEAN CORPUSCULAR VOLUME 96 FL (80-99); MEAN PLATELET VOLUME 10.4 FL (7.4-10.4); MONOCYTES # (AUTO) 0.9 X 10^3 (0.0-1.0); MONOCYTES % (AUTO) 10 % (0-12); NEUTROPHILS # (AUTO) 6.5 X 10^3 (1.8-7.8); NEUTROPHILS % (AUTO) 70 % (42-75); PLATELET COUNT 190 10^3/uL (130-400); RED BLOOD COUNT 3.76 10^6/uL (4.35-5.85); RED CELL DISTRIBUTION WIDTH 15.3 % (10.0-14.5); WHITE BLOOD COUNT 9.4 10^3/uL (4.3-11.0)
[2017-08-20 05:06] LABS: BUN/CREATININE RATIO 15; CALCIUM 8.6 MG/DL (8.5-10.1); CARBON DIOXIDE 27 MMOL/L (21-32); CHLORIDE 101 MMOL/L (98-107); CREATININE SERUM 0.82 MG/DL (0.60-1.30); GFR ESTIMATED > 60; GLUCOSE 116 MG/DL (70-105); PHOSPHORUS 4.1 MG/DL (2.3-4.7); POTASSIUM 3.9 MMOL/L (3.6-5.0); SODIUM 138 MMOL/L (135-145)
[2017-08-20] MEDS ORDERED: PANTOPRAZOLE 20 MG TABLET (PROTONIX) PO SCH (07:00)
--- NOTE | 2017-08-20 07:58 | Cardiology Progress Note ---
Subjective Date Seen by Provider: Aug 20, 2017 Time Seen by Provider: 07:56 Subjective/Events-last exam Patient is laying down in bed, feeling better, no further episodes of chest pain today. Denied any palpitation. Review of Systems General: No Chills, No Night Sweats, No Fatigue, No Malaise, No Appetite, No Other HEENT: No Head Aches, No Visual Changes, No Eye Pain, No Ear Pain, No Dysphasia , No Sinus Congestion, No Post Nasal Drip, No Sore Throat, No Other Pulmonary: No Dyspnea, No Cough, No Pleuritic Chest Pain, No Other Cardiovascular: No: Chest Pain, Palpitations, Orthopnea, Paroxysmal Noc. Dyspnea, Edema, Lt Headedness, Other Objective-Cardiology Exam Last Set of Vital Signs Vital Signs 08/20/17 08/20/17 08/20/17 04:00 06:00 07:00 Temp 98.8 Pulse 70 Resp 34 B/P (MAP) 117/82 (94) Pulse Ox 97 O2 Delivery Nasal Cannula O2 Flow Rate 2.00 Capillary Refill : Less Than 3 Seconds I&O Intake and Output 08/20/17 00:00 Intake Total 20 ml Balance 20 ml Intake IV Total 20 ml General: Alert, Oriented X3, Cooperative HEENT: Atraumatic, PERRLA Neck: Supple, No JVD, No Thyromegaly Lungs: Clear to Auscultation, Normal Air Movement Heart: Regular Rate, Normal S1, Normal S2, No Murmurs Abdomen: Normal Bowel Sounds, Soft, No Tenderness, No Hepatosplenomegaly, No Masses Extremities: No Clubbing, No Cyanosis, No Edema, Normal Pulses, No Tenderness/ Swelling Skin: No Rashes, No Breakdown, No Significant Lesion Neuro: Normal Gait, Normal Speech, Strength at 5/5 X4 Ext, Normal Tone, Sensation Intact Psych/Mental Status: Mental Status NL, Mood NL Results Lab Laboratory Tests 08/19/17 08:58 08/20/17 04:25 A/P-Cardiology Admission Diagnosis Chest pain, unstable angina Coronary artery disease Hypertension Hyperlipidemia Assessment/Plan Chest pain, unstable angina, better at this time Coronary artery disease, status post cardiac catheterization 1. 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 Successful balloon angioplasty then stent deployment using drug-eluting stent at Alpine 3.5 18 mm expanded to 3.6 mm with excellent results, the distal right coronary artery has mild to moderate disease. 2. Mild disease at the proximal circumflex artery, severe disease at the midportion involving two branches, successful balloon angioplasty then stent deployment using Alpine 3.023 mm expanded to 3.1 mm with excellent results distally, small branch less than 1 mm was jailed by the stent, patient had significant pain, reevaluation of that artery and the artery still jailed but has good flow. 3. Mild disease at the LAD, tortuous artery 4. Normal left ventricular end-diastolic pressure Hypertension, restart home medication monitor Hyperlipidemia, discontinue simvastatin and started on Lipitor and fish oil. Obesity, BMI 57. Discussed weight loss and exercise. 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
[2017-08-20] MEDS ORDERED: ASPI-983 PO ×2 (08:00)
[2017-08-20] MEDS ORDERED: OMG1KC PO ×2 (08:00)
[2017-08-20] MEDS ORDERED: CLOP75TA28 PO ×2 (08:00)
[2017-08-20] MEDS ORDERED: ATOR80TA76 PO ×2 (08:00)
[2017-08-20] MEDS ORDERED: ISOS30TA3 PO ×2 (08:02)
--- NOTE | 2017-08-20 08:03 | Discharge Inst-Post CATH ---
Discharge Inst-CATH Post Cardiac Cath D/C Inst Follow Up/Plan PT/INR on Thursday, August 24, [address] Melara's office next week CARDIAC CATH DISCHARGE INSTRUCTIONS *Hold Metformin for 48 hours post heart cath. ACTIVITY * Go Home directly and rest. * Limit activity of the leg (or wrist if it was used) for 7 days including aerobics, swimming, jogging, bicycling, etc. * Restrict stair-climbing for 7 days if possible, if not, climb up with your non -cath leg, then bring together on the same step. * Avoid lifting, pushing, pulling or excessive movement of the affected extremity for 7 days. * Customary sexual activity may be resumed after 2 days-use caution not to use a position that strains or causes pain to the affected extremity. * No driving for 24 hours. * NO SMOKING. * Avoid straining for bowel movements for 7 days. * Gentle walking on level ground is allowed. * Returning to work will depend on the type of procedure and the results. Your doctor will discuss this with you. CALL YOUR DOCTOR FOR ANY OF THE FOLLOWING: *If bleeding from the puncture site occurs- Apply gentle pressure to site with clean cloth and call your doctor or EMS. * If a knot or lump forms under the skin, increases in size, or causes pain. * If bruising appears to be worsening or moving further down your leg instead of disappearing. * Temperature above 101 F. CARE OF YOUR GROIN INCISION; * Bruising or purple discoloration of the skin near the puncture site is common. * You may shower only, no bathtub bathing for 5 days. Be careful to avoid slipping as your leg may feel stiff. * If a closure device was used on your femoral artery, please see the attached guide regarding care of the device and your leg. * REMOVE the dressing from your groin the next day after your procedure in the shower. CARE OF YOUR WRIST INCISION; * Bruising or purple discoloration of the skin near the puncture site is common. * You may shower. * DO NOT submerge wrist. * Remove dressing in 24 hours. REAGAN MELARA MD Aug 20, 2017 08:03
[2017-08-20] MEDS: OMEGA 3 (FISH OIL) 1000 MG CAP PO SCH (08:34)
[2017-08-20] MEDS ORDERED: CLOPIDOGREL 75 MG (PLAVIX) TABLET PO SCH (09:00)
[2017-08-20] MEDS ORDERED: OMEPRAZOLE 20 MG (PriLOSEC) CAP NON-FORMULARY PO SCH (09:00)
[2017-08-20] MEDS ORDERED: ASPIRIN E.C. 81 MG (ECOTRIN) TAB PO SCH (09:00)
--- NOTE | 2017-08-20 09:04 | Diagnostic Imaging Report ---
Indication: Chest pain. Comparison: 08/19/2017. Findings: The lungs are clear, the heart and vessels normal, there is no effusion or pneumothorax. Impression: No acute-appearing abnormality. Dictated by: Dictated on workstation # [id number]
--- OUTSIDE RECORDS SUMMARY | 2017-08-20 11:30 | XMS REPORT | Continuity of Care Document ---
Author Author [employer] Organization [facility] Address Unknown Phone Unavailable Care Team Providers Care Graphic Art Sales Representative Name Role Phone [employer] Unavailable Unavailable Problems Problem Status Onset Date Classification Date Reported Comments Source Other forms of dyspnea 04/07 Diagnosis 04/11/2017 [facility] Pulmonary hypertension, unspecified 04/07/2017 Diagnosis 04/11/2017 [facility] Hyperlipidemia, unspecified 04/07/2017 Diagnosis 2016 [facility] Essential (primary) hypertension 04/07/2017 Diagnosis 06/2016 [facility] Chronic obstructive pulmonary disease, unspecified 04/07/2017 Diagnosis 04/11/2017 [facility] Atherosclerotic heart disease of [place] coronary artery without angina pectoris 04/07/2017 Diagnosis 04/11/2017 [facility] Palpitations 04/07/2017 Diagnosis 04/11/2017 [facility] Chest pain, unspecified Diagnosis 04/11/2017 [facility] Chronic obstructive lung disease (disorder) 04/07/2017 Diagnosis 04/11/2017 [facility] Chest pain (finding) 2016 Diagnosis 04/11/2017 [facility] Palpitations (finding) 04/07 Diagnosis 04/11/2017 [facility] Coronary arteriosclerosis (disorder) 04/07/2017 Diagnosis 04/11/2017 [facility] Pulmonary hypertension (disorder) 04/07/2017 Diagnosis [facility] Dyspnea on exertion (finding) 04/07/2017 Diagnosis 2016 [facility] Hyperlipidemia (disorder) Diagnosis 04/11/2017 [facility] Hypertensive disorder, systemic arterial (disorder) 04/07/2017 Diagnosis 04/11/2017 [facility] Medications Medication Details Route Status Patient Instructions Ordering Provider Order Date Source No Known Medications No known medications Active [facility] Allergies, Adverse Reactions, Alerts Immunizations Results Vital Signs Encounters Location Location Details Encounter Type Encounter Number Reason For Visit Attending Provider ADM Date DC Date Status Source [facility] [id number] Outpatient [id number] Moisés Antonio 04/07/2017 Active [facility] [id number] SELF REFERRAL 04/07/2017 04/08/2017 [facility] [id number] Outpatient [id number] Moisés Antonio 04/13/2017 Active [facility] [id number] Inpatient [id number] Rayshawn Arnav 04/13/2017 04/14/2017 Active [facility] Procedures Procedure Code Date Perfomer Comments Source Cholecystectomy 05/11/2011 [facility] D & C 05/11/2011 [facility] Throat surgery 05/11/2011 [facility] EGD 05/11/2010 [facility] Plan of Care Social History Assessment and Plan Family History Advance Directives Functional Status
--- OUTSIDE RECORDS SUMMARY | 2017-08-20 11:30 | XMS REPORT | Clinical Summary ---
Author Author [facility] Organization [facility] Address Unknown Phone Unavailable Care Team Providers Care Poultry Scientist Name Role Phone Timmy Canales PCP Zena Ferrera RN Unavailable Unavailable Raman Haskins MD Unavailable Jovanna Heath Unavailable Unavailable Source Comments Some departments are not documenting in the electronic medical record. If you do not see the information that you expected, contact Release of Information in the Health Information Management department at [phone] for further assistance in locating additional records.[facility] Allergies Active Allergy Reactions Severity Noted [...] Taken Blood Pressure 143/86 03/23/2014 2:06 PM POOLING OPERATOR Pulse 76 03/23/2014 2:06 PM POOLING OPERATOR Temperature 37.1 C (98.8 F) 03/23/2014 2:06 PM POOLING OPERATOR Respiratory Rate - - Oxygen Saturation 93% 03/23/2014 2:06 PM POOLING OPERATOR Inhaled Oxygen - - Concentration Weight 147.1 kg (324 lb 3.2 oz) 03/23/2014 2:06 PM POOLING OPERATOR Height - - Body Mass Index - - Plan of Treatment Health Maintenance Due Date Last Done Comments HEPATITIS C SCREENING 1957 PHYSICAL (COMPREHENSIVE) 1964 EXAM PERTUSSIS VACCINE 1968 HIV SCREENING 1972 TETANUS VACCINE 1974 CERVICAL CANCER SCREENING 12/10/1987 BREAST CANCER SCREENING 1997 COLORECTAL CANCER 12/10/2007 SCREENING INFLUENZA VACCINE 02/08/2018 Results Not on filefrom Last 3 Months
--- OUTSIDE RECORDS SUMMARY | 2017-08-20 11:30 | XMS REPORT ---
Author Author [facility] Organization [facility] Address Unknown Phone Unavailable Care Team Providers Care Construction Project Mgr Name Role Phone JOSE ALBERTO ARIZA PCP Unavailable No Family Physician, . PCP Unavailable Encounter [id number] Date(s): 04/07/17 - 04/07/17 [facility] [address] [place] [id number] Encounter Diagnosis CAD (coronary artery disease) (Discharge Diagnosis) - 04/07/17 Palpitation (Discharge Diagnosis) - 04/07/17 Chest pain (Discharge Diagnosis) - 04/07/17 ROGERS (dyspnea on exertion) (Discharge Diagnosis) - 04/07/17 Pulmonary HTN (Discharge Diagnosis) - 04/07/17 Hyperlipidemia (Discharge Diagnosis) - 04/07/17 HTN (hypertension) (Discharge Diagnosis) - 04/07/17 COPD (chronic obstructive pulmonary disease) (Discharge Diagnosis) - 04/07/17 Attending Physician: Moisés Antonio MD Referring Physician: REFERRAL, SELF Non-Staff Vital Signs No data available for this section Problem List Diagnosis Diagnosis Type Effective Dates Health Status Clinical Service Informant COPD (chronic Discharge 04/07/17 obstructive Diagnosis pulmonary disease) Chest pain Discharge 04/07/17 Diagnosis Palpitation Discharge 04/07/17 Diagnosis CAD (coronary Discharge 04/07/17 artery disease) Diagnosis Pulmonary HTN Discharge 04/07/17 Diagnosis ROGERS (dyspnea on Discharge 04/07/17 exertion) Diagnosis Hyperlipidemia Discharge 04/07/17 Diagnosis HTN (hypertension) Discharge 04/07/17 Diagnosis Allergies, Adverse Reactions, Alerts No data available for this section Medications No Known Medications Results No data available for this section Immunizations No data available for this section Procedures Procedure Date Related Diagnosis Body Site Status Cholecystectomy 2011 Completed D & C 2011 Completed Throat surgery 2011 Completed EGD 2010 Completed Social History No data available for this section Assessment and Plan No data available for this section
--- OUTSIDE RECORDS SUMMARY | 2017-08-20 11:33 | XMS REPORT ---
Author Author KAVYA HASSAN Organization [facility] Address [address] [place] [address] Care Team Providers Care Nurse Informatics Educator Name Role Phone KAVYA HASSAN Unavailable PROBLEMS Type Condition ICD9-CM Code [id number] Code Onset Dates Condition Status SNOMED Code Problem Arthritis M19.90 Active 8781946 Problem Other specified hypothyroidism E03.8 Active 35513173 Problem Personal history of pulmonary embolism Z86.711 Active 192235090 Problem Gastroesophageal reflux disease without esophagitis K21.9 Active 863418829 Problem Intractable migraine without aura and with status migrainosus G43.011 Active 145235349 Problem Hypothyroidism E03.9 Active 25756697 Problem Metabolic syndrome E88.81 Active 85505375 Problem Morbid obesity with BMI of 50.0-59.9, adult Z68.43 Active 894794786 Problem Hypothyroidism, unspecified E03.9 Active 75557944 Problem Hyperlipidemia, unspecified hyperlipidemia type E78.5 Active 70718858 ALLERGIES Substance Reaction Event Type Date Status Phenergan hallucinations Drug Allergy Jul, Active Nexium anaphylaxis Drug Allergy Jul, Active Methylprednisolone nausea and vomiting Drug Allergy Jul, Active Levothyroxine Sodium rash Drug Allergy Jul, Active Honey Bee Venom Unknown Drug Allergy Jul, Active Dexamethasone nausea and vomiting Drug Allergy Jul, Active Azithromycin hives Drug Allergy Jul, Active Amoxicillin hives Drug Allergy Jul, Active Adhesive Unknown Non Drug Allergy Jul, Active Tape Unknown Non Drug Allergy Jul, Active SOCIAL HISTORY Never Assessed PLAN OF CARE Activity Details Follow Up prn Reason: VITAL SIGNS Height 64 in 2016-07-15 Weight 328.8 lbs 2016-07-15 Temperature 97.1 degrees Fahrenheit 2016-07-15 Heart Rate 68 bpm 2016-07-15 Respiratory Rate 20 2016-07-15 BMI 56.43 kg/m2 2016-07-15 Blood pressure systolic 132 mmHg 2016-07-15 Blood pressure diastolic 72 mmHg 2016-07-15 MEDICATIONS Medication Instructions Dosage Frequency Start Date End Date Duration Status Albuterol Sulfate 2.5 mg /3 mL (0.083 %) 1 Each by Inhalation route every 4 hours for cough and wheezePRNfor wheezing or cough Nov, Active Tylenol Extra Strength 500 MG Nov, Active Albuterol Sulfate 90 mcg/actuation inhale 1 puff by inhalation route every 4-6 hours as needed Jun, Active Levothyroxine Sodium 137 MCG TAKE ONE TABLET BY MOUTH ONCE DAILY IN THE MORNING ON AN EMPTY STOMACH 30 Active Test strips Test Strips ICD10- E11.9 fasting and 2 hours after one meal daily 2 times weekly. test blood sugar Aug, Active Simvastatin 10 mg Orally Once a day 1 tablet in the evening 24h Aug, Active Warfarin Sodium 5 MG Orally Once a day 1 tablet 24h Active Glucometer glucometer ICD10- E11.9 fasting and 2 hours after one meal daily 3 times weekly. test blood sugar Aug, Active Hydrocodone-Acetaminophen 5-325 mg take 1 tablet by Oral route every 4 hours as needed for pain September, Active Naproxen 500 MG Orally every 12 hrs 1 tablet as needed 12h Dec, 90 days Active RESULTS Name Result Date Reference Range CT Scan : Abdomen w/ Contrast 2016-07-17 Xray : KUB (IN HOUSE) 2016-07-15 PROCEDURES Procedure Date Ordered Result Body Site X-RAY EXAM OF ABDOMEN July 15, 2016 [facility] VISIT ESTABLISHED PATIENT July 15, 2016 IMMUNIZATIONS No Known Immunizations MEDICAL (GENERAL) HISTORY Type Description Date Medical History coronary artery disease Medical History gastroesophageal reflux disease (GERD) Medical History back pain Medical History obesity Medical History Carotid plaque Medical History hx of donovan PE/ followed by Dr. Melara Medical History Asthma Medical History Uterine fibroid Medical History colonoscopy with polyp removed/ Dr. North and Dr. Santana - had one cancerous. Medical History Leiomyoma of uterus, unspecified Medical History Cataract Medical History Cataract Medical History Cervicalgia Medical History Sleep apnea, unspecified type Surgical History heart cath-mild LAD, moderate RCA stenosis 02/2012 Surgical History lumpectomy 2007 Surgical History appendectomy Surgical History dilatation and curettage 09/2011 Surgical History spine surgery-bone in neck pushing on spinal cord repaired Surgical History thyroid surgery 2007 Surgical History cholecystectomy 2014 Surgical History total hysterectomy w/bilat salpingo-oopherectomy 2014 Hospitalization History Surgery(s) only
--- OUTSIDE RECORDS SUMMARY | 2017-08-20 11:33 | XMS REPORT ---
Author Author YARITZAJACKIEPAYAL Organization [facility] Address [address] [place] [address] Care Team Providers Care Computed Tomography Scanner Operator Name Role Phone VIGILJACKIE EdouardELE Unavailable PROBLEMS Type Condition ICD9-CM Code [id number] Code Onset Dates Condition Status SNOMED Code Problem Arthritis M19.90 Active 7354689 Problem Other specified hypothyroidism E03.8 Active 48445022 Problem Personal history of pulmonary embolism Z86.711 Active 896046181 Problem Gastroesophageal reflux disease without esophagitis K21.9 Active 311340746 Problem Intractable migraine without aura and with status migrainosus G43.011 Active 630650859 Problem Hypothyroidism E03.9 Active 97962884 Problem Metabolic syndrome E88.81 Active 70608447 Problem Morbid obesity with BMI of 50.0-59.9, adult Z68.43 Active 001978779 Problem Hypothyroidism, unspecified E03.9 Active 57767306 Problem Hyperlipidemia, unspecified hyperlipidemia type E78.5 Active 53305205 ALLERGIES No Information SOCIAL HISTORY Never Assessed PLAN OF CARE VITAL SIGNS MEDICATIONS No Known Medications RESULTS No Results PROCEDURES No Known procedures IMMUNIZATIONS No Known Immunizations MEDICAL (GENERAL) HISTORY [...] 2014 Surgical History total hysterectomy w/bilat salpingo-oopherectomy 2015 Hospitalization History Surgery(s) only
--- OUTSIDE RECORDS SUMMARY | 2017-08-20 11:34 | XMS REPORT ---
Author Author IVAN MULLIGAN Organization [facility] Address [address] [place] [address] Care Team Providers Care Freight Brakeman Name Role Phone IVAN MULLIGAN Unavailable PROBLEMS Type Condition ICD9-CM Code [id number] Code Onset Dates Condition Status SNOMED Code Problem Arthritis M19.90 Active 7327345 Problem Other specified hypothyroidism E03.8 Active 70764708 Problem Personal history of pulmonary embolism Z86.711 Active 322330512 Problem Gastroesophageal reflux disease without esophagitis K21.9 Active 940832974 Problem Intractable migraine without aura and with status migrainosus G43.011 Active 686432182 Problem Hypothyroidism E03.9 Active 36377595 Problem Metabolic syndrome E88.81 Active 00115565 Problem Morbid obesity with BMI of 50.0-59.9, adult Z68.43 Active 338402680 Problem Hypothyroidism, unspecified E03.9 Active 33167846 Problem Hyperlipidemia, unspecified hyperlipidemia type E78.5 Active 95116227 ALLERGIES Substance Reaction Event Type Date Status Phenergan hallucinations Drug Allergy Jun, Active Nexium anaphylaxis Drug Allergy Jun, Active Methylprednisolone nausea and vomiting Drug Allergy Jun, Active Levothyroxine Sodium rash Drug Allergy Jun, Active Honey Bee Venom Unknown Drug Allergy Jun, Active Dexamethasone nausea and vomiting Drug Allergy Jun, Active Azithromycin hives Drug Allergy Jun, Active Amoxicillin hives Drug Allergy Jun, Active Tramadol HCl Unknown Drug Allergy Jun, Active Adhesive Unknown Non Drug Allergy Jun, Active Tape Unknown Non Drug Allergy Jun, Active SOCIAL HISTORY No smoking Hx information available PLAN OF CARE Activity Details Follow Up prn Reason: VITAL SIGNS Height 64 in 2016-06-12 Temperature 96.8 degrees Fahrenheit 2016-06-12 Heart Rate 88 bpm 2016-06-12 Respiratory Rate 20 2016-06-12 Blood pressure systolic 136 mmHg 2016-06-12 Blood pressure diastolic 80 mmHg 2016-06-12 MEDICATIONS Medication Instructions Dosage Frequency Start Date End Date Duration Status Tylenol Extra Strength 500 MG Nov, Active Naproxen 500 MG Orally every 12 hrs 1 tablet as needed 12h Dec, 90 days Active Furosemide 20 mg Orally Once a day 1 tablet 24h Nov, 10 days Active Soothe Active Albuterol Sulfate 2.5 mg /3 mL (0.083 %) 1 Each by Inhalation route every 4 hours for cough and wheezePRNfor wheezing or cough Nov, Active Simvastatin 10 mg Orally Once a day 1 tablet in the evening 24h Aug, Active Cyclobenzaprine HCl 10 MG Orally Three times a day 1 tablet 8h Jun, Jun, 5 days Active Albuterol Sulfate 90 mcg/actuation inhale 1 puff by inhalation route every 4-6 hours as needed Jun, Active Levothyroxine Sodium 137 MCG TAKE ONE TABLET BY MOUTH ONCE DAILY IN THE MORNING ON AN EMPTY STOMACH 30 Active Omeprazole 20 mg Orally Once a day 1 tablet 24h Jan, Active Glucometer glucometer ICD10- E11.9 fasting and 2 hours after one meal daily 3 times weekly. test blood sugar Aug, Active Hydrocodone-Acetaminophen 5-325 mg take 1 tablet by Oral route every 4 hours as needed for pain September, Active Warfarin Sodium 5 MG Orally Once a day 1 tablet 24h Active Test strips Test Strips ICD10- E11.9 fasting and 2 hours after one meal daily 2 times weekly. test blood sugar Aug, Active RESULTS No Results PROCEDURES Procedure Date Ordered Related Diagnosis Body Site [facility] VISIT ESTABLISHED PATIENT Jun 12, 2016 Office Visit, Est Pt., Level 3 Jun 12, 2016 IMMUNIZATIONS No Known Immunizations
--- OUTSIDE RECORDS SUMMARY | 2017-08-20 11:34 | XMS REPORT ---
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 [employer]inct Name Role Phone ALEJANDRA SCHAFFER Unavailable PROBLEMS Type Condition ICD9-CM Code [id number] Code Onset Dates Condition Status SNOMED Code Problem Arthritis M19.90 Active 3280636 Problem Other specified hypothyroidism E03.8 Active 13092964 Problem Personal history of pulmonary embolism Z86.711 Active 560629005 Problem Gastroesophageal reflux disease without esophagitis K21.9 Active 090350680 Problem Intractable migraine without aura and with status migrainosus G43.011 Active 999270215 Problem Hypothyroidism E03.9 Active 49844745 Problem Metabolic syndrome E88.81 Active 54553746 Problem Morbid obesity with BMI of 50.0-59.9, adult Z68.43 Active 766945793 Problem Hypothyroidism, unspecified E03.9 Active 23903179 Problem Hyperlipidemia, unspecified hyperlipidemia type E78.5 Active 56784632 ALLERGIES Substance Reaction Event Type Date Status Phenergan hallucinations Drug Allergy September, Active Nexium anaphylaxis Drug Allergy September, Active Methylprednisolone nausea and vomiting Drug Allergy September, Active Levothyroxine Sodium rash Drug Allergy September, Active Honey Bee Venom Unknown Drug Allergy September, Active Dexamethasone nausea and vomiting Drug Allergy September, Active Azithromycin hives Drug Allergy September, Active Amoxicillin hives Drug Allergy September, Active Adhesive Unknown Non Drug Allergy September, Active Tape Unknown Non Drug Allergy September, Active SOCIAL HISTORY Never Assessed PLAN OF CARE VITAL SIGNS Height 64 in 2016-09-17 Weight 325.4 lbs 2016-09-17 Temperature 97.1 degrees Fahrenheit 2016-09-17 Heart Rate 74 bpm 2016-09-17 Respiratory Rate 22 2016-09-17 BMI 55.85 kg/m2 2016-09-17 Blood pressure systolic 126 mmHg 2016-09-17 Blood pressure diastolic 74 mmHg 2016-09-17 MEDICATIONS Medication Instructions Dosage Frequency Start Date End Date Duration Status Warfarin Sodium 5 mg Orally 4x weekly 1 tablet Active Glucometer glucometer ICD10- E11.9 fasting and 2 hours after one meal daily 3 times weekly. test blood sugar Aug, Active Test strips Test Strips ICD10- E11.9 fasting and 2 hours after one meal daily 2 times weekly. test blood sugar Aug, Active Naproxen 500 mg Orally every 12 hrs 1 tablet as needed 12h 7 Oct, 2016 90 days Active Tylenol Extra Strength 500 MG Nov, Active Simvastatin 10 mg Orally Once a day 1 tablet in the evening 24h Aug, 90 days Active Levothyroxine Sodium 137 MCG Orally Once a day TAKE ONE TABLET BY MOUTH ONCE DAILY IN THE MORNING ON AN EMPTY STOMACH 24h 90 days Active Albuterol Sulfate 2.5 mg /3 mL (0.083 %) 1 Each by Inhalation route every 4 hours for cough and wheezePRNfor wheezing or cough Nov, Active Albuterol Sulfate 90 mcg/actuation inhale 1 puff by inhalation route every 4-6 hours as needed Jun, Active Warfarin Sodium 7.5 MG Orally 3x weekly 1 tablet Active RESULTS Name Result Date Reference Range Xray : Knee, Left 3 views (IN HOUSE) 2016-09-17 Xray : Wrist, Left 3 views (IN HOUSE) 2016-09-17 PROCEDURES Procedure Date Ordered Result Body Site X-RAY EXAM OF WRIST September 17, 2016 X-RAY EXAM OF KNEE, 3 September 17, 2016 [facility] VISIT ESTABLISHED PATIENT September 17, 2016 IMMUNIZATIONS No Known Immunizations MEDICAL (GENERAL) [...]
--- OUTSIDE RECORDS SUMMARY | 2017-08-20 11:34 | XMS REPORT ---
Author Author KAVYA HASSAN Organization [facility] Address [address] [place] [address] Care Team Providers Care Lead Man Over [employer] In [employer] Name Role Phone KAVYA HASSAN Unavailable PROBLEMS Type Condition ICD9-CM Code [id number] Code Onset Dates Condition Status SNOMED Code Problem Arthritis M19.90 Active 5879449 Problem Other specified hypothyroidism E03.8 Active 48213878 Problem Personal history of pulmonary embolism Z86.711 Active 833895756 Problem Gastroesophageal reflux disease without esophagitis K21.9 Active 312175518 Problem Intractable migraine without aura and with status migrainosus G43.011 Active 341349806 Problem Hypothyroidism E03.9 Active 68225749 Problem Metabolic syndrome E88.81 Active 23919470 Problem Morbid obesity with BMI of 50.0-59.9, adult Z68.43 Active 266139689 Problem Hypothyroidism, unspecified E03.9 Active 26902797 Problem Hyperlipidemia, unspecified hyperlipidemia type E78.5 Active 65616610 ALLERGIES No Information SOCIAL HISTORY Never Assessed [...]
--- OUTSIDE RECORDS SUMMARY | 2017-08-20 11:35 | XMS REPORT ---
Author Author PAYAL VIGIL Organization [facility] Address [address] [place] [address] Care Team Providers Care Library Manager Name Role Phone YARITZA PAYAL Unavailable PROBLEMS Type Condition ICD9-CM Code [id number] Code Onset Dates Condition Status SNOMED Code Problem Arthritis M19.90 Active 4541839 Problem Other specified hypothyroidism E03.8 Active 20060653 Problem Personal history of pulmonary embolism Z86.711 Active 548545970 Problem Gastroesophageal reflux disease without esophagitis K21.9 Active 139625296 Problem Intractable migraine without aura and with status migrainosus G43.011 Active 698937305 Problem Hypothyroidism E03.9 Active 19098649 Problem Metabolic syndrome E88.81 Active 83951982 Problem Morbid obesity with BMI of 50.0-59.9, adult Z68.43 Active 670001383 Problem Hypothyroidism, unspecified E03.9 Active 85865449 Problem Hyperlipidemia, unspecified hyperlipidemia type E78.5 Active 03398410 ALLERGIES Substance Reaction Event Type Date Status [...] PLAN OF CARE Activity Details Follow Up 3 Months Reason:[facility] VITAL SIGNS Height 64 in 2016-07-17 Weight 324 lbs 2016-07-17 Temperature 98.8 degrees Fahrenheit 2016-07-17 Heart Rate 70 bpm 2016-07-17 Respiratory Rate 20 2016-07-17 BMI 55.61 kg/m2 2016-07-17 Blood pressure systolic 124 mmHg 2016-07-17 Blood pressure diastolic 60 mmHg 2016-07-17 MEDICATIONS Medication Instructions Dosage Frequency Start Date End Date Duration Status Albuterol Sulfate 90 mcg/actuation inhale 1 puff by inhalation route every 4-6 hours as needed Jun, Active Tylenol Extra Strength 500 MG Nov, Active Albuterol Sulfate 2.5 mg /3 mL (0.083 %) 1 Each by Inhalation route every 4 hours for cough and wheezePRNfor wheezing or cough Nov, Active Warfarin Sodium 5 mg Orally 4x weekly 1 tablet Active Test strips Test Strips ICD10- E11.9 fasting and 2 hours after one meal daily 2 times weekly. test blood sugar Aug, Active Levothyroxine Sodium 137 MCG Orally Once a day TAKE ONE TABLET BY MOUTH ONCE DAILY IN THE MORNING ON AN EMPTY STOMACH 24h 90 days Active Simvastatin 10 mg Orally Once a day 1 tablet in the evening 24h Aug, 90 days Active Glucometer glucometer ICD10- E11.9 fasting and 2 hours after one meal daily 3 times weekly. test blood sugar Aug, Active Naproxen 500 mg Orally every 12 hrs 1 tablet as needed 12h 7 Oct, 2016 90 days Active Warfarin Sodium 7.5 MG Orally 3x weekly 1 tablet Active RESULTS Name Result Date Reference Range A1C (IN HOUSE) 2016-07-17 A1C IN HOUSE Previous A1c 6.3 Lot [id number] Exp date PROCEDURES Procedure Date Ordered Result Body Site GLYCATED HEMOGLOBIN TEST July 17, 2016 [facility] VISIT ESTABLISHED PATIENT July 17, 2016 IMMUNIZATIONS No Known Immunizations MEDICAL [...]
--- OUTSIDE RECORDS SUMMARY | 2017-08-20 11:35 | XMS REPORT ---
Author Author KAVYA HASSAN Organization [facility] Address [address] [place] [address] Care Team Providers Care Drain Cleaner Name Role Phone KAVYA HASSAN Unavailable PROBLEMS Type Condition ICD9-CM Code [id number] Code Onset Dates Condition Status SNOMED Code Problem Arthritis M19.90 Active 7367686 Problem Other specified hypothyroidism E03.8 Active 55168010 Problem Personal history of pulmonary embolism Z86.711 Active 066894079 Problem Gastroesophageal reflux disease without esophagitis K21.9 Active 563119181 Problem Intractable migraine without aura and with status migrainosus G43.011 Active 209455798 Problem Hypothyroidism E03.9 Active 88128449 Problem Metabolic syndrome E88.81 Active 05472739 Problem Morbid obesity with BMI of 50.0-59.9, adult Z68.43 Active 004993563 Problem Hypothyroidism, unspecified E03.9 Active 36836624 Problem Hyperlipidemia, unspecified hyperlipidemia type E78.5 Active 21263633 ALLERGIES No Information SOCIAL HISTORY Never Assessed PLAN OF CARE VITAL SIGNS MEDICATIONS Unknown Medications RESULTS Name Result Date Reference Range CBC W/ AUTO DIFF (OUTSIDE LAB) 2016-07-17 PROCEDURES No Known procedures IMMUNIZATIONS No Known [...] History thyroid surgery 2007 Surgical History cholecystectomy 2015 Surgical History total hysterectomy w/bilat salpingo-oopherectomy 2015 Hospitalization History Surgery(s) only
--- OUTSIDE RECORDS SUMMARY | 2017-08-20 11:38 | XMS REPORT ---
Author Author PAYAL VIGIL Organization [facility] Address [address] [place] [address] Care Team Providers Care Schedule Announcer Name Role Phone YARITZA PAYAL Unavailable PROBLEMS Type Condition ICD9-CM Code [id number] Code Onset Dates Condition Status SNOMED Code Problem Arthritis M19.90 Active 2293264 Problem Other specified hypothyroidism E03.8 Active 70763042 Problem Personal history of pulmonary embolism Z86.711 Active 230639318 Problem Gastroesophageal reflux disease without esophagitis K21.9 Active 841370759 Problem Intractable migraine without aura and with status migrainosus G43.011 Active 505868523 Problem Hypothyroidism E03.9 Active 49625932 Problem Metabolic syndrome E88.81 Active 20037272 Problem Morbid obesity with BMI of 50.0-59.9, adult Z68.43 Active 455504082 Problem Hypothyroidism, unspecified E03.9 Active 41451807 Problem Hyperlipidemia, unspecified hyperlipidemia type E78.5 Active 67961590 ALLERGIES Substance Reaction Event Type Date Status [...] PLAN OF CARE Activity Details Follow Up prn, 3 Months Reason: VITAL SIGNS Height 64 in 2016-07-24 Weight 325.3 lbs 2016-07-24 Temperature 97.8 degrees Fahrenheit 2016-07-24 Heart Rate 70 bpm 2016-07-24 Respiratory Rate 18 2016-07-24 BMI 55.83 kg/m2 2016-07-24 Blood pressure systolic 126 mmHg 2016-07-24 Blood pressure diastolic 68 mmHg 2016-07-24 MEDICATIONS Medication Instructions Dosage Frequency Start Date End Date Duration Status Warfarin Sodium 5 mg Orally 4x weekly 1 tablet Active Levothyroxine Sodium 137 MCG Orally Once a day TAKE ONE TABLET BY MOUTH ONCE DAILY IN THE MORNING ON AN EMPTY STOMACH 24h 90 days Active Simvastatin 10 mg Orally Once a day 1 tablet in the evening 24h Aug, 90 days Active Ciprofloxacin HCl 500 mg Orally Twice a day 1 tablet 12h Jul, Jul, 07 days Active Test strips Test Strips ICD10- E11.9 fasting and 2 hours after one meal daily 2 times weekly. test blood sugar Aug, Active Metronidazole 500 mg Orally every 8 hrs 1 tablet 8h Jul, Jul, 07 days Active Albuterol Sulfate 2.5 mg /3 mL (0.083 %) 1 Each by Inhalation route every 4 hours for cough and wheezePRNfor wheezing or cough Nov, Active Warfarin Sodium 7.5 MG Orally 3x weekly 1 tablet Active Naproxen 500 mg Orally every 12 hrs 1 tablet as needed 12h 7 Oct, 2016 90 days Active Albuterol Sulfate 90 mcg/actuation inhale 1 puff by inhalation route every 4-6 hours as needed Jun, Active Glucometer glucometer ICD10- E11.9 fasting and 2 hours after one meal daily 3 times weekly. test blood sugar Aug, Active Tylenol Extra Strength 500 MG Nov, Active RESULTS No Results PROCEDURES Procedure Date Ordered Result Body Site PENDING S[facility] VISIT ESTABLISHED PATIENT July 24, 2016 IMMUNIZATIONS No Known Immunizations MEDICAL (GENERAL) [...]
--- OUTSIDE RECORDS SUMMARY | 2017-08-20 11:40 | XMS REPORT ---
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 Active 795679661 Problem Arthritis M19.90 Active 6155102 Problem Personal history of pulmonary embolism Z86.711 Active 624937046 Problem Renal stones N20.0 Active 23623185 Problem Acute gout involving toe of right foot, 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 Active 675733907 Problem Hyperlipidemia, unspecified hyperlipidemia type E78.5 Active 55023505 Problem Morbid obesity with BMI of 50.0-59.9, adult Z68.43 Active 484961065 Problem Intractable migraine without aura and with status migrainosus G43.011 Active 932633832 Problem Hypothyroidism E03.9 Active 02906337 ALLERGIES No Information ENCOUNTERS Encounter Location Date Diagnosis [facility] [id number] [address] Aug, [facility] [id number] [place] [address] 35726- 1088 Jul, Renal stones N20.0 [facility] [id number] [place] [address] 57774 -7215 Jun, Back pain M54.9 ; Kidney stones N20.0 and BMI 50.0-59.9, adult Z68.43 [facility] [id number] [address] Jun, [facility] [id number] [place] [address] 23702- 0314 18 Apr, 2017 [place] [id number] [place] [address] 61747- 1695 Apr, [place] [id number] [place] [address] 28962- 2663 Apr, Right foot pain M79.671 ; Acute gout involving toe of right foot, 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 and Arthritis M19.90 [place] [id number] [place] [address] 75600- 6886 06 Apr, 2017 Gastroesophageal reflux disease without esophagitis K21.9 [place] [address] 36483- 3918 Mar, Hypothyroidism, unspecified E03.9 [place] [address] 40657- 9958 Feb, [place] [address] 41970- 0856 25 Jan, 2017 Cervicalgia of pgutvuky-rxjwcie-bmmyr region M54.2 and Persistent headaches R51 [place] [id number] [place] [address] 15409- 0293 20 Jan, 2017 [place] [id number] [place] [address] 81511- 0128 12 Jan, 2017 Intractable migraine without aura and with status migrainosus G43.011 ; Cervical spine pain M54.2 ; Hyperlipidemia, unspecified hyperlipidemia type E78.5 ; Hypothyroidism E03.9 and Metabolic syndrome E88.81 [place] [id number] [place] [address] 91812- 4150 Jan, Hypothyroidism, unspecified E03.9 [place] [id number] [place] [address] 59823- 0116 Dec, Hypothyroidism, unspecified E03.9 [place] [id number] [place] [address] 26325- 8946 Dec, Hypothyroidism E03.9 [place] [id number] [place] [address] 40918- 7805 Nov, Laceration of left great toe w/o foreign body w/o damage to nail, initial encounter S91.112A [facility] [place] [id number] [place] [address] 56238 -9029 Oct, Pain in left knee M25.562 and Arthritis M19.90 [place] [id number] [place] [address] 19861- 5479 Oct, Hypothyroidism, unspecified E03.9 and Hyperlipidemia, unspecified hyperlipidemia type E78.[address] 17491- 6987 Oct, Gastroesophageal reflux disease without esophagitis K21.9 [place] [id number] [place] [address] 75352- 0434 14 Oct, 2016 Metabolic syndrome E88.81 ; Personal history of pulmonary embolism Z86.711 ; Other specified hypothyroidism E03.8 and Hyperlipidemia, unspecified hyperlipidemia type E78.5 [place] [id number] [place] [address] 18898- 2171 13 Oct, 2016 Personal history of pulmonary embolism Z86.711 ; Dysuria R30.0 ; Metabolic syndrome E88.81 ; Other specified hypothyroidism E03.8 ; Hyperlipidemia, unspecified hyperlipidemia type E78.5 and Morbid obesity with BMI of 50.0-59.9, adult Z68.43 [place] [id number] [place] [address] 53697- 2743 September, [facility] [place] [id number] [place] [address] 83382 -1631 September, Wrist pain, left M25.532 and Acute pain of left knee M25.562 [place] [id number] [place] [address] 77580- 4960 Jul, Dysuria R30.0 [place] [id number] [place] [address] 74428- 8700 30 Jul, 2016 Dysuria R30.[address] 94322- 2079 16 Jul, 2016 Left lower quadrant pain R10.32 [place] [id number] [place] [address] 64494- 5877 14 Jul, 2016 [place] [address] 52279- 6366 Jul, Coronary artery disease I25.10 ; Family history of diabetes mellitus Z83.3 ; Morbid obesity with BMI of 50.0-59.9, adult Z68.43 ; Metabolic syndrome E88.81 ; Personal history of pulmonary embolism Z86.711 ; Gastroesophageal reflux disease without esophagitis K21.9 ; Hypothyroidism, unspecified E03.9 ; Hyperlipidemia, unspecified hyperlipidemia type E78.5 and Left lower quadrant pain R10.32 [facility] [address] 44521 -2538 Jul, [facility] [place] [id number] [place] [address] 74523 -6510 08 Jul, 2016 Morbid obesity with BMI of 50.0-59.9, adult Z68.43 [facility] [place] [id number] [place] [address] 46390 -8160 Jul, Generalized abdominal pain R10.84 [facility] [address] 68535 -6763 Jun, Muscle strain of right upper back, initial encounter S29.012A [facility] [address] 22443 -3274 May, Foreign body (FB) in soft tissue M79.5 [place] [id number] [place] [address] 20924- 9619 Mar, Hypothyroidism, unspecified E03.9 and Arthritis M19.90 [place] [id number] [place] [address] 88607- 2415 13 Feb, 2016 Coronary artery disease I25.10 ; Morbid obesity with BMI of 50.0-59.9, adult Z68.43 ; Metabolic syndrome E88.81 ; Gastroesophageal reflux disease without esophagitis K21.9 ; Hypothyroidism, unspecified E03.9 ; Personal history of pulmonary embolism Z86.711 and Hyperlipidemia, unspecified hyperlipidemia type E78.5 [place] [address] 18203- 8748 Feb, [facility] [place] [id number] [place] [address] 11977 -6719 12 Jan, 2016 Acute right-sided thoracic back pain M54.6 [place] [address] 59323- 5217 Jan, Acute pain of left knee M25.[address] 81569- 9922 Dec, Dysuria R30.0 ; Metabolic syndrome E88.81 ; Acute pain of left knee M25.562 ; Acute cystitis with hematuria N30.01 and Acute left eye pain H57.12 [place] [id number] [place] [address] 20950- 0251 Dec, [place] [id number] [place] [address] 23510- 8769 Dec, [place] [address] 91395- 1598 Dec, Hypothyroidism, unspecified E03.9 [place] [id number] [place] [address] 26124- 0045 Dec, [place] [id number] [place] [address] 82623- 8058 Nov, Peripheral edema R60.9 and Acute pain of left knee M25.562 [facility] [place] [address] 50358 -9013 September, [place] [id number] [place] [address] 18138- 4587 September, Metabolic syndrome E88.81 and Allergy, subsequent encounter T78.40XD [facility] [place] [id number] [place] [address] 66931 -2475 September, Muscle strain T14.[address] 31198- 6908 Aug, Chest pressure R07.89 ; Metabolic syndrome E88.81 ; Morbid obesity with BMI of 50.0-59.9, adult Z68.43 ; Esophageal reflux 530.81 and Shortness of breath R06.02 [place] [id number] [place] [address] 25646- 8723 Aug, [address] 37417- 2866 Aug, [address] 96875- 9099 Aug, Hypothyroidism, unspecified E03.[address] 09975- 6085 Aug, Routine health maintenance Z00.00 [facility] [place] [id number] [place] [address] 20048 -9604 Aug, [address] 05149- 5599 Jul, Routine health maintenance Z00.00 ; Family history of diabetes mellitus Z83.3 ; Family history of cancer Z80.9 and Morbid obesity with BMI of 50.0-59.9, adult Z68.43 [facility] [place] [id number] [place] [address] 63418 -0257 Jul, Allergic rhinitis J30.9 and Postnasal drip R09.[address] 56829- 4774 Jul, Influenza J11.1 [facility] [address] [address] Jul, Dysuria R30.0 [facility] [address] [address]- 8090 Apr, [facility] [id number] [place] [address] 74827- 3044 Mar, Acute upper respiratory infection, unspecified J06.9 and Hypothyroidism E03.9 [facility] [id number] [place] [address] 98723- 0767 Mar, [facility] [id number] [place] [address] 45759- 5735 Feb, Coronary artery disease I25.10 [facility] [id number] [place] [address] 01464- 1614 Feb, Left foot pain M79.672 [facility] [id number] [place] [address] 33146- 1423 Jan, UTI (urinary tract infection) 599.0 [facility] [id number] [place] [address] 89507- 0109 Jan, Urinary tract infection, site not specified 599.0 [facility] [id number] [place] [address] 90603- 4300 Jan, Urinary tract infection, site not specified 599.0 [facility] [address] [address]- 3073 Jan, [facility] [id number] [place] [address] 08811- 3585 Dec, Headache 784.0 [facility] [address] [address]- 5324 Dec, Urinary tract infection, site not specified 599.0 [facility] [id number] [address]- 9263 Dec, Urinary tract infection, site not specified 599.0 [facility] [id number] [place] [address] 840664- 9594 Dec, Urinary tract infection, site not specified 599.0 [facility] [address] [address]- 5958 Nov, Unspecified sleep apnea 780.57 ; Encounter for long-term ( current) use of anticoagulants V58.61 ; Routine general medical examination at [facility] care facility V70.0 and Arthritis of both knees 716.96 [facility] [id number] [place] [address] 18301- 9074 September, Cat bite of hand 882.0 and Rectal bleeding 569.3 [facility] [id number] [place] [address] 14751- 9285 Aug, [facility] [id number] [place] [address] 46849- 0377 Aug, [facility] [id number] [place] [address] 74199- 3187 Jul, [facility] [id number] [place] [address] 29718- 5175 Jul, [facility] [address] [address]- 3693 Jul, [facility] [id number] [place] [address] 82175- 2760 Jul, [facility] [address] [address]- 7222 Jul, [facility] [id number] [place] [address] 12813778- 6700 Jul, [facility] [address] 6780 Jul, [facility] [id number] [place] [address] 90076- 2711 Jul, [facility] [place] [facility] [address] [id number] [place] [address]- 4108 May, [facility] [place] [facility] [address] [id number] [place] [address]- 9928 May, [facility] [place] [facility] [address] [id number] [place] [address]- 2749 May, [facility] [place] [facility] [address] [id number] [place] [address]- 1099 May, [facility] [place] [facility] [address] [id number] [place] [address]- 4051 May, [facility] [place] [facility] [address] [id number] [place] [address]- 8186 May, [facility] [place] [facility] [address] [id number] [place] [address]- 7835 May, [facility] [place] [facility] [address] [id number] [place] [address]- 3572 Mar, [facility] [place] [facility] [address] [id number] [place] [address]- 4362 Mar, [facility] [place] [facility] [address] [facility] [id number] [place] [address]- 4640 08 Jan, 2013 [facility] [place] [facility] [address] [id number] [address]- 2523 08 Sep, 2013 [facility] [place] [facility] [address] [id number] [address]- 1799 08 Sep, 2013 [facility] [place] [facility] [address] [id number] [place] [address]- 0525 08 Sep, 2013 [facility] [place] [facility] [address] [id number] [place] [address]- 6405 05 Sep, 2013 [facility] [place] [facility] [address] [id number] [place] [address]- 2661 05 Sep, 2013 [facility] [place] [facility] [address] [id number] [place] [address]- 1572 Dec, [facility] [place] [facility] [address] [id number] [place] [address]- 2850 Dec, [facility] [place] [facility] [address] [id number] [place] [address]- 1523 Dec, [facility] [place] [facility] [address] [id number] [place] [address]- 7554 Dec, [facility] [place] [facility] [address] [id number] [place] [address]- 9452 Dec, [facility] [place] [facility] [address] [id number] [place] [address]- 2996 Dec, [facility] [place] [facility] [address] [id number] [place] [address]- 5998 Dec, [facility] [place] [facility] [address] [id number] [place] [address]- 5304 Dec, [facility] [place] [facility] [address] [id number] [place] [address]- 3811 Dec, [facility] [place] [facility] [address] [id number] [place] [address]- 9404 Dec, [facility] [place] [facility] [address] [id number] [place] [address]- 4496 Nov, [facility] [place] [facility] [address] [id number] [place] [address]- 1700 Nov, [facility] [place] [facility] [address] [id number] [place] [address]- 4125 September, [facility] [place] [facility] [address] [id number] [place] [address]- 9844 September, [facility] [place] [facility] [address] [id number] [place] [address]- 0310 September, [facility] [place] [facility] [address] [id number] [place] [address]- 5225 September, [facility] [place] [facility] [address] [id number] [place] [address]- 3469 Aug, [facility] [place] [facility] [address] [id number] [place] [address]- 4590 Aug, [facility] [place] [facility] [address] [id number] [place] [address]- 5762 Aug, [facility] [place] [facility] [address] [id number] [place] [address]- 3652 Aug, [facility] [place] [facility] [address] [id number] [place] [address]- 8263 Aug, [facility] [place] [facility] [address] [id number] [place] [address]- 7507 Aug, [facility] [place] [facility] [address] [id number] [place] [address]- 5215 Aug, [facility] [place] [facility] [address] [id number] [place] [address]- 5203 Aug, [facility] [place] [facility] [address] [id number] [place] [address]- 4730 Aug, [facility] [place] [facility] [address] [id number] [place] [address]- 4120 Aug, [facility] [place] [facility] [address] [id number] [place] [address]- 1370 Aug, [facility] [place] [facility] [address] [id number] [address]- 8021 Aug, [facility] [place] [facility] [address] [id number] [place] [address]- 5127 Jul, [facility] [place] [facility] [address] [id number] [place] [address]- 1519 Jul, [facility] [place] [facility] [address] [id number] [place] [address]- 8294 Jul, [facility] [place] [facility] [address] [id number] [place] [address]- 5473 Jul, [facility] [place] [facility] [address] [id number] [place] [address]- 7662 Jul, [facility] [place] [facility] [address] [id number] [place] 1626 Jul, [facility] [place] [facility] [address] [id number] [place] [address]- 8719 05 Jul, 2013 [facility] [place] [facility] [address] [id number] [place] [address]- 0917 05 Jul, 2013 [facility] [place] [facility] [address] [id number] [place] [address]- 2881 Jul, [facility] [place] [facility] [address] [id number] [place] [address]- 1048 Jul, [facility] [place] [facility] [address] [id number] [place] [address]- 2209 28 Jun, 2013 [facility] [place] [facility] [address] [id number] [place] [address]- 8603 28 Jun, 2013 [facility] [place] [facility] [address] [id number] [place] [address]- 4302 17 Jun, 2013 [facility] [place] [facility] [address] [facility] [id number] [place] [address]- 1527 17 Jun, 2013 [facility] [place] [facility] [address] [id number] [place] [address]- 3398 13 Jun, 2013 [facility] [place] [facility] [address] [id number] [place] [address]- 4890 Jun, [facility] [place] [facility] [address] [id number] [place] [address]- 5204 13 Jun, 2013 [facility] [place] [facility] [address] [facility] [id number] [place] 1921 13 Jun, 2013 [facility] [place] [facility] [address] [facility] [id number] [place] [address]- 8115 Jun, [facility] [place] [facility] [address] [id number] [place] [address]- 8279 Jun, [facility] [place] [facility] [address] [id number] [place] [address]- 8140 Jun, [facility] [place] [facility] [address] [id number] [place] [address]- 6216 Jun, [facility] [place] [facility] [address] [id number] [place] [address]- 9521 May, [facility] [place] [facility] [address] [id number] [place] [address]- 4876 May, [facility] [place] [facility] [address] [id number] [place] [address]- 8542 May, [facility] [place] [facility] [address] [id number] [place] [address]- 8217 May, [facility] [place] [facility] [address] [id number] [place] [address]- 5383 May, [facility] [place] [facility] [address] [id number] [place] [address]- 4326 May, [facility] [place] [facility] [address] [id number] [place] [address]- 9388 May, [facility] [place] [facility] [address] [id number] [place] [address]- 3685 May, [facility] [place] [facility] [address] [id number] [address]- 9772 May, [facility] [place] [facility] [address] [id number] [place] [address]- 8527 May, [facility] [place] [facility] [address] [id number] [place] [address]- 3365 May, [facility] [place] [facility] [address] [id number] [place] [address]- 6284 May, [facility] [place] [facility] [address] [id number] [place] [address]- 2084 May, [facility] [address] [id number] [place] [address]- 4429 May, [facility] [address] [id number] [place] [address]- 6772 May, [facility] [address] [id number] [place] [address]- 6991 Apr, [facility] [address] [id number] [place] [address]- 9549 Apr, [facility] [address] [id number] [place] [address]- 3729 Apr, [facility] [address] [id number] [place] [address]- 7098 Apr, [facility] [address] [id number] [place] [address]- 9670 Mar, [facility] [address] [id number] [place] [address]- 2511 Mar, [facility] [address] [id number] [place] [address] Mar, [facility] [address] [facility] [id number] [place] [address] Mar, [facility] [address] [id number] [place] [address] Mar, [facility] [address] [id number] [place] [address] Mar, [facility] [address] [id number] [place] [address] Mar, [facility] [place] [facility] [address] [id number] [place] [address] Mar, [facility] [address] [id number] [place] [address] Mar, [facility] [place] [facility] [address] [id number] [place] [address] Mar, [facility] [place] [facility] [address] [id number] [place] [address] Mar, [facility] [place] [facility] [address] [id number] [place] [address] Mar, [facility] [place] [facility] [address] [id number] [place] [address] Feb, [facility] [place] [facility] [address] [id number] [place] [address] 18 Jan, 2013 [facility] [place] [facility] [address] [id number] [place] [address] 17 Jan, 2013 [facility] [place] [facility] [address] [id number] [place] [address] 06 Jan, 2013 [facility] [place] [facility] [address] [id number] [place] [address] 04 Jan, 2013 [facility] [place] [facility] [address] [id number] [place] [address] Jan, [facility] [place] [facility] [address] [id number] [place] [address] Dec, [facility] [place] [facility] [address] [id number] [place] [address] Dec, [facility] [place] [facility] [address] [id number] [address] Dec, [facility] [place] [facility] [address] [id number] [place] [address] 16 Dec, 2012 [facility] [place] [facility] [address] [id number] [place] [address] Dec, [facility] [place] [facility] [address] [id number] [address] Dec, [facility] [place] [facility] [address] [id number] [address] Dec, [facility] [place] [facility] [address] [facility] [id number] [place] [address] Dec, [facility] [place] [facility] [address] [facility] [id number] [place] [address] Nov, [facility] [place] [facility] [address] [facility] [id number] [place] [address] Nov, [facility] [place] [facility] [address] [facility] [id number] [place] [address] Nov, [facility] [place] [facility] [address] [facility] [id number] [place] [address] Nov, [facility] [place] [facility] [address] [facility] [id number] [place] [address] Nov, [facility] [place] [facility] [address] [facility] [id number] [place] [address] Nov, [facility] [place] [facility] [address] [facility] [id number] [place] [address] Oct, [facility] [address] [id number] [id number] Oct, [facility] [address] [id number] [place] [id number] Oct, [facility] [address] [id number] [id number] Oct, [facility] [address] [facility] [id number] [id number] Oct, [facility] [place] [facility] [address] [facility] [id number] [place] [address] Oct, [facility] [place] [facility] [address] [facility] [id number] [place] [address] Oct, [facility] [place] [facility] [address] [facility] [id number] [place] [address] Oct, [facility] [place] [facility] [address] [facility] [id number] [place] [address] Oct, [facility] [place] [facility] [address] [id number] [place] [address] Oct, [facility] [place] [facility] [address] [id number] [place] [address] Oct, [facility] [place] [facility] [address] [id number] [place] [address] September, [facility] [place] [facility] [address] [id number] [place] [address] Aug, [facility] [place] [facility] [address] [id number] [place] [address] Aug, [facility] [place] [facility] [address] [id number] [place] [address] Aug, [facility] [place] [facility] [address] [id number] [place] [address] Aug, [facility] [place] [facility] [address] [id number] [place] [address] Jul, [facility] [place] [facility] [address] [id number] [place] [address] Jul, [facility] [place] [facility] [address] [id number] [place] [address] Jul, [facility] [place] [facility] [address] [id number] [place] [address] Jul, [facility] [place] [facility] [address] [id number] [address] Jul, [facility] [place] [facility] [address] [id number] [place] [address] Jun, [facility] [place] [facility] [address] [id number] [place] [address] Jun, [facility] [place] [facility] [address] [id number] [place] [address] Jun, [facility] [place] [facility] [address] [id number] [place] [address] 31 May, 2012 [facility] [address] [id number] [place] [address] 24 May, 2012 [facility] [address] [id number] [place] [address] 14 May, 2012 [facility] [address] [id number] [place] [address] 11 May, 2012 [facility] [address] [id number] [place] [address] 07 May, 2012 [facility] [address] [id number] [place] [address] 04 May, 2012 [facility] [address] [id number] [place] [address] 18 Apr, 2012 [facility] [address] [id number] [place] [address] 18 Apr, 2012 [facility] [address] [id number] [place] [address] 13 Apr, 2012 [facility] [address] [id number] [place] [address] 13 Apr, 2012 [facility] [address] [id number] [place] [address] 13 Apr, 2012 [facility] [address] [id number] [place] [address] 11 Apr, 2012 [facility] [address] [id number] [place] [address] Apr, [facility] [address] [id number] [place] [address] Mar, [facility] [address] [id number] [place] [address] Mar, [facility] [address] [id number] [place] [address] Mar, [facility] [id number] [address] Mar, [facility] [id number] [address] Jan, [facility] [id number] [address] Jan, [facility] [id number] [address] Jan, [facility] [id number] [address] Jan, [facility] [id number] [place] [id number] Dec, [facility] [id number] [address] Dec, [facility] [id number] [place] [id number] Dec, [facility] [id number] [address] Dec, [facility] [id number] [place] [address] Dec, [facility] [id number] [address] Dec, [facility] [id number] [address] Nov, [facility] [id number] [address] Nov, [facility] [id number] [address] Nov, IMMUNIZATIONS No Known Immunizations SOCIAL HISTORY Never Assessed REASON FOR VISIT Medication refill request PLAN OF CARE VITAL SIGNS MEDICATIONS Medication Instructions Dosage Frequency Start Date End Date Duration Status Omeprazole 20 mg Orally Once a day 1 tablet 24h Jan, 30 days Active RESULTS No Results PROCEDURES No Known procedures INSTRUCTIONS MEDICATIONS ADMINISTERED No Known Medications MEDICAL (GENERAL) HISTORY Type Description Date Medical [...] moderate RCA stenosis 02/2012 Surgical History lumpectomy 2008 Surgical History appendectomy Surgical History dilatation and curettage 09/2011 Surgical History spine surgery-bone in neck pushing on spinal cord repaired Surgical History thyroid surgery 2007 Surgical History cholecystectomy 2014 Surgical History total hysterectomy w/bilat salpingo-oopherectomy 2014 Hospitalization History Surgery(s) only
--- OUTSIDE RECORDS SUMMARY | 2017-08-20 11:43 | XMS REPORT ---
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 Active 968992601 Problem Arthritis M19.90 Active 9808590 Problem Personal history of pulmonary embolism Z86.711 Active 512745434 Problem Renal stones N20.0 Active 28180192 Problem Acute gout involving toe of right foot, 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 Active 759191768 Problem Hyperlipidemia, unspecified hyperlipidemia type E78.5 Active 69332701 Problem Morbid obesity with BMI of 50.0-59.9, adult Z68.43 Active 984051387 Problem Intractable migraine without aura and with status migrainosus G43.011 Active 606837177 Problem Hypothyroidism E03.9 Active 62045500 ALLERGIES No Information ENCOUNTERS Encounter Location Date Diagnosis [facility] [address], [place] [address] Aug, [facility] [id number] [place] [address] 56433- 9020 Jul, Renal stones N20.0 [facility] [id number] [place] [address] 85665 -4638 Jun, Back pain M54.9 ; Kidney stones N20.0 and BMI 50.0-59.9, adult Z68.43 [facility] [id number], [place] [address] Jun, [facility] [id number] [place] [address] 47410- 0910 18 Apr, 2017 [place] [id number] [place] [address] 60258- 7636 Apr, [place] [id number] [place] [address] 10309- 1977 Apr, Right foot pain M79.671 ; Acute gout involving toe of right foot, 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 and Arthritis M19.90 [facility] [id number] [place] [address] 59064- 2265 06 Apr, 2017 Gastroesophageal reflux disease without esophagitis K21.9 [place] [address] 73597- 8194 Mar, Hypothyroidism, unspecified E03.9 [place] [address] 64573- 6404 Feb, [place] [address] 32934- 9474 25 Jan, 2017 Cervicalgia of svhfgoda-fifpsol-pzevg region M54.2 and Persistent headaches R51 [place] [id number] [place] [address] 30236- 4333 20 Jan, 2017 [place] [id number] [place] [address] 33754- 4061 12 Jan, 2017 Intractable migraine without aura and with status migrainosus G43.011 ; Cervical spine pain M54.2 ; Hyperlipidemia, unspecified hyperlipidemia type E78.5 ; Hypothyroidism E03.9 and Metabolic syndrome E88.81 [place] [id number] [place] [address] 24821- 3594 Jan, Hypothyroidism, unspecified E03.9 [facility] [id number] [place] [address] 11194- 5515 Dec, Hypothyroidism, unspecified E03.9 [facility] [id number] [place] [address] 11394- 8268 Dec, Hypothyroidism E03.9 [facility] [place] [id number] [place] [address] 18605- 2024 Nov, Laceration of left great toe w/o foreign body w/o damage to nail, initial encounter S91.112A [facility] WALK [facility] [place] [id number] [place] [address] 42739 -6926 Oct, Pain in left knee M25.562 and Arthritis M19.90 [place] [id number] [place] [address] 51100- 1592 Oct, Hypothyroidism, unspecified E03.9 and Hyperlipidemia, unspecified hyperlipidemia type E78.[address] 71974- 6545 Oct, Gastroesophageal reflux disease without esophagitis K21.9 [place] [id number] [place] [address] 10986- 0446 14 Oct, 2016 Metabolic syndrome E88.81 ; Personal history of pulmonary embolism Z86.711 ; Other specified hypothyroidism E03.8 and Hyperlipidemia, unspecified hyperlipidemia type E78.5 [place] [id number] [place] [address] 75874- 9096 13 Oct, 2016 Personal history of pulmonary embolism Z86.711 ; Dysuria R30.0 ; Metabolic syndrome E88.81 ; Other specified hypothyroidism E03.8 ; Hyperlipidemia, unspecified hyperlipidemia type E78.5 and Morbid obesity with BMI of 50.0-59.9, adult Z68.43 [place] [id number] [place] [address] 24482- 6005 September, [facility] [place] [id number] [place] [address] 98244 -9707 September, Wrist pain, left M25.532 and Acute pain of left knee M25.562 [place] [id number] [place] [address] 35432- 1470 Jul, Dysuria R30.0 [place] [id number] [place] [address] 75388- 1066 30 Jul, 2016 Dysuria R30.[address] 49141- 3531 16 Jul, 2016 Left lower quadrant pain R10.32 [place] [id number] [place] [address] 97870- 4909 14 Jul, 2016 [place] [address] 35101- 9744 Jul, Coronary artery disease I25.10 ; Family history of diabetes mellitus Z83.3 ; Morbid obesity with BMI of 50.0-59.9, adult Z68.43 ; Metabolic syndrome E88.81 ; Personal history of pulmonary embolism Z86.711 ; Gastroesophageal reflux disease without esophagitis K21.9 ; Hypothyroidism, unspecified E03.9 ; Hyperlipidemia, unspecified hyperlipidemia type E78.5 and Left lower quadrant pain R10.32 [facility] [address] 42339 -4858 Jul, [facility] [place] [id number] [place] [address] 95999 -4513 08 Jul, 2016 Morbid obesity with BMI of 50.0-59.9, adult Z68.43 [facility] [place] [id number] [place] [address] 21718 -8817 Jul, Generalized abdominal pain R10.84 [facility] [address] 94661 -7100 Jun, Muscle strain of right upper back, initial encounter S29.012A [facility] [address] 42071 -8769 May, Foreign body (FB) in soft tissue M79.5 [place] [id number] [place] [address] 57257- 9588 Mar, Hypothyroidism, unspecified E03.9 and Arthritis M19.90 [place] [id number] [place] [address] 09803- 9484 13 Feb, 2016 Coronary artery disease I25.10 ; Morbid obesity with BMI of 50.0-59.9, adult Z68.43 ; Metabolic syndrome E88.81 ; Gastroesophageal reflux disease without esophagitis K21.9 ; Hypothyroidism, unspecified E03.9 ; Personal history of pulmonary embolism Z86.711 and Hyperlipidemia, unspecified hyperlipidemia type E78.5 [place] [address] 91456- 9730 Feb, [facility] [place] [id number] [place] [address] 34616 -3944 12 Jan, 2016 Acute right-sided thoracic back pain M54.6 [place] [address] 09232- 8228 Jan, Acute pain of left knee M25.[address] 74734- 9375 Dec, Dysuria R30.0 ; Metabolic syndrome E88.81 ; Acute pain of left knee M25.562 ; Acute cystitis with hematuria N30.01 and Acute left eye pain H57.12 [place] [id number] [place] [address] 13297- 3127 Dec, [place] [id number] [place] [address] 82022- 8392 Dec, [place] [address] 74372- 1998 Dec, Hypothyroidism, unspecified E03.9 [place] [id number] [place] [address] 15532- 1083 Dec, [place] [id number] [place] [address] 47088- 9837 Nov, Peripheral edema R60.9 and Acute pain of left knee M25.562 [facility] [place] [address] 86816 -1517 September, [place] [id number] [place] [address] 68801- 1107 September, Metabolic syndrome E88.81 and Allergy, subsequent encounter T78.40XD [facility] [place] [id number] [place] [address] 64553 -7344 September, Muscle strain T14.[address] 75502- 9353 Aug, Chest pressure R07.89 ; Metabolic syndrome E88.81 ; Morbid obesity with BMI of 50.0-59.9, adult Z68.43 ; Esophageal reflux 530.81 and Shortness of breath R06.02 [place] [id number] [place] [address] 34537- 0304 Aug, [address] 18784- 8717 Aug, [address] 97183- 3927 Aug, Hypothyroidism, unspecified E03.[address] 47067- 1831 Aug, Routine health maintenance Z00.00 [facility] WALK IN [place] [id number] [place] [address] 32029 -0681 Aug, [address] 39419- 6857 Jul, Routine health maintenance Z00.00 ; Family history of diabetes mellitus Z83.3 ; Family history of cancer Z80.9 and Morbid obesity with BMI of 50.0-59.9, adult Z68.43 [facility] [place] [id number] [place] [address] 62816 -7758 Jul, Allergic rhinitis J30.9 and Postnasal drip R09.[address] 58921- 6628 Jul, Influenza J11.1 [facility] [address], [place] [address]2159 Jul, Dysuria R30.0 [facility] [address], [place] [address]- 4400 Apr, [facility] [id number] [place] [address] 36725- 0342 Mar, Acute upper respiratory infection, unspecified J06.9 and Hypothyroidism E03.9 [facility] [address] [place] [address] 35214- 3029 Mar, [facility] [id number] [place] [address] 49734- 9902 Feb, Coronary artery disease I25.10 [facility] [id number] [place] [address] 73240- 2379 Feb, Left foot pain M79.672 [facility] [address] [place] [address] 72869- 6087 Jan, UTI (urinary tract infection) 599.0 [facility] [address] [place] [address] 23793- 1998 Jan, Urinary tract infection, site not specified 599.0 [facility] [address] [place] [address] 60516- 4041 Jan, Urinary tract infection, site not specified 599.0 [facility] [address], [place] [address]- 6278 Jan, [facility] [address] [place] [address] 84349- 2773 Dec, Headache 784.0 [facility] [address], [place] [address]- 9878 Dec, Urinary tract infection, site not specified 599.0 [facility] [id number], [place] [address]- 9752 Dec, Urinary tract infection, site not specified 599.0 [facility] [id number] [place] [address] 016478- 2924 Dec, Urinary tract infection, site not specified 599.0 [facility] [address], [place] [address]- 4538 Nov, Unspecified sleep apnea 780.57 ; Encounter for long-term ( current) use of anticoagulants V58.61 ; Routine general medical examination at [facility] V70.0 and Arthritis of both knees 716.96 [facility] [id number] [place] [address] 82419- 3677 September, Cat bite of hand 882.0 and Rectal bleeding 569.3 [facility] [id number] [place] [address] 98674- 6692 Aug, [facility] [id number] [place] [address] 31123- 3773 Aug, [facility] [address] [place] [address] 64226- 6743 Jul, [facility] [id number] [place] [address] 78331- 1944 Jul, [facility] [address], [place] [address]- 7300 Jul, [facility] [id number] [place] [address] 01498- 5772 Jul, [facility] [address], [place] [address]- 6016 Jul, [facility] [id number] [place] [address] 34988468- 1407 Jul, [facility] [address] 5359 Jul, [facility] [id number] [place] [address] 08408- 4148 Jul, [facility] [place] [facility] [address] [id number] [place] [address]- 2764 May, [facility] [place] [facility] [address] [id number] [place] [address]- 0947 May, [facility] [place] [facility] [address] [id number] [place] [address]- 7031 May, [facility] [place] [facility] [address] [id number] [place] [address]- 0306 May, [facility] [place] [facility] [address] [id number] [place] [address]- 4174 May, [facility] [place] [facility] [address] [id number] [place] [address]- 1715 May, [facility] [place] [facility] [address] [id number] [place] [address]- 7667 May, [facility] [place] [facility] [address] [id number] [place] [address]- 3009 Mar, [facility] [place] [facility] [address] [id number] [place] [address]- 1741 Mar, [facility] [place] [facility] [address] [facility] [id number] [place] [address]- 1705 08 Jan, 2013 [facility] [place] [facility] [address] [id number], [place] [address]- 6790 08 Sep, 2013 [facility] [place] [facility] [address] [id number], [place] [address]- 5555 08 Sep, 2013 [facility] [place] [facility] [address] [id number] [place] [address]- 3274 08 Sep, 2013 [facility] [place] [facility] [address] [id number] [place] [address]- 7065 05 Sep, 2013 [facility] [place] [facility] [address] [id number] [place] [address]- 9901 05 Sep, 2013 [facility] [place] [facility] [address] [id number] [place] [address]- 1943 Dec, [facility] [place] [facility] [address] [id number] [place] [address]- 8596 Dec, [facility] [place] [facility] [address] [id number] [place] [address]- 4165 Dec, [facility] [place] [facility] [address] [id number] [place] [address]- 0218 Dec, [facility] [place] [facility] [address] [id number] [place] [address]- 3742 Dec, [facility] [place] [facility] [address] [id number] [place] [address]- 6734 Dec, [facility] [place] [facility] [address] [id number] [place] [address]- 1289 Dec, [facility] [place] [facility] [address] [id number] [place] [address]- 7141 Dec, [facility] [place] [facility] [address] [id number] [place] [address]- 2191 Dec, [facility] [place] [facility] [address] [id number] [place] [address]- 0879 Dec, [facility] [place] [facility] [address] [id number] [place] [address]- 5133 Nov, [facility] [place] [facility] [address] [id number] [place] [address]- 3639 Nov, [facility] [place] [facility] [address] [id number] [place] [address]- 6162 September, [facility] [place] [facility] [address] [id number] [place] [address]- 5993 September, [facility] [place] [facility] [address] [id number] [place] [address]- 8931 September, [facility] [place] [facility] [address] [id number] [place] [address]- 3193 September, [facility] [place] [facility] [address] [id number] [place] [address]- 9648 Aug, [facility] [place] [facility] [address] [id number] [place] [address]- 3637 Aug, [facility] [place] [facility] [address] [id number] [place] [address]- 5966 Aug, [facility] [place] [facility] [address] [id number] [place] [address]- 0952 Aug, [facility] [place] [facility] [address] [id number] [place] [address]- 6340 Aug, [facility] [place] [facility] [address] [id number] [place] [address]- 5638 Aug, [facility] [place] [facility] [address] [id number] [place] [address]- 4017 Aug, [facility] [place] [facility] [address] [id number] [place] [address]- 7205 Aug, [facility] [place] [facility] [address] [id number] [place] [address]- 5904 Aug, [facility] [place] [facility] [address] [id number] [place] [address]- 2490 Aug, [facility] [place] [facility] [address] [id number] [place] [address]- 3028 Aug, [facility] [place] [facility] [address] [id number], [place] [address]- 7246 Aug, [facility] [place] [facility] [address] [id number] [place] [address]- 6152 Jul, [facility] [place] [facility] [address] [id number] [place] [address]- 3875 Jul, [facility] [place] [facility] [address] [id number] [place] [address]- 8055 Jul, [facility] [place] [facility] [address] [id number] [place] [address]- 8168 Jul, [facility] [place] [facility] [address] [id number] [place] [address]- 0722 Jul, [facility] [place] [facility] [address] [id number] [place] 3626 Jul, [facility] [place] [facility] [address] [id number] [place] [address]- 9989 05 Jul, 2013 [facility] [place] [facility] [address] [id number] [place] [address]- 3325 05 Jul, 2013 [facility] [place] [facility] [address] [id number] [place] [address]- 5308 Jul, [facility] [place] [facility] [address] [id number] [place] [address]- 4037 Jul, [facility] [place] [facility] [address] [id number] [place] [address]- 4004 28 Jun, 2013 [facility] [place] [facility] [address] [id number] [place] [address]- 5844 28 Jun, 2013 [facility] [place] [facility] [address] [id number] [place] [address]- 5511 17 Jun, 2013 [facility] [place] [facility] [address] [facility] [id number] [place] [address]- 9987 17 Jun, 2013 [facility] [place] [facility] [address] [id number] [place] [address]- 3899 13 Jun, 2013 [facility] [place] [facility] [address] [id number] [place] [address]- 0346 Jun, [facility] [place] [facility] [address] [id number] [place] [address]- 8566 13 Jun, 2013 [facility] [place] [facility] [address] [facility] [id number] [place] 4561 13 Jun, 2013 [facility] [place] [facility] [address] [facility] [id number] [place] [address]- 8338 Jun, [facility] [place] [facility] [address] [id number] [place] [address]- 0591 Jun, [facility] [place] [facility] [address] [id number] [place] [address]- 4444 Jun, [facility] [place] [facility] [address] [id number] [place] [address]- 6494 Jun, [facility] [place] [facility] [address] [id number] [place] [address]- 2187 May, [facility] [place] [facility] [address] [id number] [place] [address]- 7233 May, [facility] [place] [facility] [address] [id number] [place] [address]- 7727 May, [facility] [place] [facility] [address] [id number] [place] [address]- 6079 May, [facility] [place] [facility] [address] [id number] [place] [address]- 4695 May, [facility] [place] [facility] [address] [id number] [place] [address]- 5119 May, [facility] [place] [facility] [address] [id number] [place] [address]- 0768 May, [facility] [place] [facility] [address] [id number] [place] [address]- 0760 May, [facility] [place] [facility] [address] [id number], [place] [address]- 7441 May, [facility] [place] [facility] [address] [id number] [place] [address]- 4477 May, [facility] [place] [facility] [address] [id number] [place] [address]- 2466 May, [facility] [place] [facility] [address] [id number] [place] [address]- 6037 May, [facility] [place] [facility] [address] [id number] [place] [address]- 6255 May, [facility] [address] [id number] [place] [address]- 9009 May, [facility] [address] [id number] [place] [address]- 8092 May, [facility] [address] [id number] [place] [address]- 8803 Apr, [facility] [address] [id number] [place] [address]- 2860 Apr, [facility] [address] [id number] [place] [address]- 7446 Apr, [facility] [address] [id number] [place] [address]- 2503 Apr, [facility] [address] [id number] [place] [address]- 4062 Mar, [facility] [address] [id number] [place] [address]- 7209 Mar, [facility] [address] [id number] [place] [address]- 0185 Mar, [facility] [address] [facility] [id number] [place] [address]- 3799 Mar, [facility] [address] [id number] [place] [address] Mar, [facility] [address] [id number] [place] [address] Mar, [facility] [address] [id number] [place] [address] Mar, [facility] [place] [facility] [address] [id number] [place] [address] Mar, [facility] [address] [id number] [place] [address] Mar, [facility] [place] [facility] [address] [id number] [place] [address] Mar, [facility] [place] [facility] [address] [id number] [place] [address] Mar, [facility] [place] [facility] [address] [id number] [place] [address] Mar, [facility] [place] [facility] [address] [id number] [place] [address] Feb, [facility] [place] [facility] [address] [id number] [place] [address] 18 Jan, 2013 [facility] [place] [facility] [address] [id number] [place] [address] 17 Jan, 2013 [facility] [place] [facility] [address] [id number] [place] [address] 06 Jan, 2013 [facility] [place] [facility] [address] [id number] [place] [address] 04 Jan, 2013 [facility] [place] [facility] [address] [id number] [place] [address] Jan, [facility] [place] [facility] [address] [id number] [place] [address] Dec, [facility] [place] [facility] [address] [id number] [place] [address] Dec, [facility] [place] [facility] [address] [id number], [place] [address] Dec, [facility] [place] [facility] [address] [id number] [place] [address] 16 Dec, 2012 [facility] [place] [facility] [address] [id number] [place] [address] Dec, [facility] [place] [facility] [address] [id number], [place] [address] Dec, [facility] [place] [facility] [address] [id number], [place] [address] Dec, [facility] [place] [facility] [address] [facility] [id number] [place] [address] Dec, [facility] [place] [facility] [address] [facility] [id number] [place] [address] Nov, [facility] [place] [facility] [address] [facility] [id number] [place] [address] Nov, [facility] [place] [facility] [address] [facility] [id number] [place] [address] Nov, [facility] [place] [facility] [address] [facility] [id number] [place] [address] Nov, [facility] [place] [facility] [address] [facility] [id number] [place] [address] Nov, [facility] [place] [facility] [address] [facility] [id number] [place] [address] Nov, [facility] [place] [facility] [address] [facility] [id number] [place] [address] Oct, [facility] [address] [id number] [id number] Oct, [facility] [address] [address] [id number] [id number] Oct, [facility] [address] [id number] [id number] Oct, [facility] [address] [facility] [id number] [id number] Oct, [facility] [place] [facility] [address] [facility] [id number] [place] [address] Oct, [facility] [place] [facility] [address] [facility] [id number] [place] [address] Oct, [facility] [place] [facility] [address] [facility] [id number] [place] [address] Oct, [facility] [place] [facility] [address] [facility] [id number] [place] [address] Oct, [facility] [place] [facility] [address] [id number] [place] [address] Oct, [facility] [place] [facility] [address] [id number] [place] [address] Oct, [facility] [place] [facility] [address] [id number] [place] [address] September, [facility] [place] [facility] [address] [id number] [place] [address] Aug, [facility] [place] [facility] [address] [id number] [place] [address] Aug, [facility] [place] [facility] [address] [id number] [place] [address] Aug, [facility] [place] [facility] [address] [id number] [place] [address] Aug, [facility] [place] [facility] [address] [id number] [place] [address] Jul, [facility] [place] [facility] [address] [id number] [place] [address] Jul, [facility] [place] [facility] [address] [id number] [place] [address] Jul, [facility] [place] [facility] [address] [id number] [place] [address] Jul, [facility] [place] [facility] [address] [id number], [place] [address] Jul, [facility] [place] [facility] [address] [id number] [place] [address] Jun, [facility] [place] [facility] [address] [id number] [place] [address] Jun, [facility] [place] [facility] [address] [id number] [place] [address] Jun, [facility] [place] [facility] [address] [id number] [place] [address] 31 May, 2012 [facility] [address] [id number] [place] [address] 24 May, 2012 [facility] [address] [id number] [place] [address] 14 May, 2012 [facility] [address] [id number] [place] [address] 11 May, 2012 [facility] [address] [id number] [place] [address] 07 May, 2012 [facility] [address] [id number] [place] [address] 04 May, 2012 [facility] [address] [id number] [place] [address] 18 Apr, 2012 [facility] [address] [id number] [place] [address] 18 Apr, 2012 [facility] [address] [id number] [place] [address] 13 Apr, 2012 [facility] [address] [id number] [place] [address] 13 Apr, 2012 [facility] [address] [id number] [place] [address] 13 Apr, 2012 [facility] [address] [id number] [place] [address] 11 Apr, 2012 [facility] [address] [id number] [place] [address] Apr, [facility] [address] [id number] [place] [address] Mar, [facility] [address] [id number] [place] [address] Mar, [facility] [address] [id number] [place] [address] Mar, [facility] [id number], [place] [address] Mar, [facility] [id number], [place] [address] Jan, [facility] [id number], [place] [address] Jan, [facility] [id number], [place] [address] Jan, [facility] [id number], [place] [address] Jan, [facility] [id number] [place] [id number] Dec, [facility] [id number], [place] [address] Dec, [facility] [id number] [place] [id number] Dec, [facility] [id number], [place] [address] Dec, [facility] [id number], [place] [address] Dec, [facility] [address], [place] [address] Dec, [facility] [address], [place] [address] Nov, [facility] [address] [id number], [place] [address] Nov, [facility] [id number], [place] [address] Nov, IMMUNIZATIONS No Known Immunizations SOCIAL HISTORY Never Assessed REASON FOR VISIT Med Changes per labs PLAN OF CARE VITAL SIGNS MEDICATIONS Medication Instructions Dosage Frequency Start Date End Date Duration Status Simvastatin 20 MG Orally Once a day 1 tablet in the evening 24h Aug, Active Levothyroxine Sodium 150 MCG Orally Once a day TAKE ONE TABLET BY MOUTH ONCE DAILY IN THE MORNING ON AN EMPTY STOMACH 24h Active RESULTS No Results PROCEDURES No Known [...]
--- OUTSIDE RECORDS SUMMARY | 2017-08-20 11:44 | XMS REPORT ---
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 Active 950800367 Problem Arthritis M19.90 Active 3346160 Problem Personal history of pulmonary embolism Z86.711 Active 582607639 Problem Renal stones N20.0 Active 79343149 Problem Acute gout involving toe of right foot, 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 Active 316886597 Problem Hyperlipidemia, unspecified hyperlipidemia type E78.5 Active 12934502 Problem Morbid obesity with BMI of 50.0-59.9, adult Z68.43 Active 337065769 Problem Intractable migraine without aura and with status migrainosus G43.011 Active 321696867 Problem Hypothyroidism E03.9 Active 34815622 ALLERGIES Substance Reaction Event Type Date Status Phenergan hallucinations Drug Allergy Nov, Active Nexium anaphylaxis Drug Allergy Nov, Active Methylprednisolone nausea and vomiting Drug Allergy Nov, Active Levothyroxine Sodium rash Drug Allergy Nov, Active Honey Bee Venom Unknown Drug Allergy Nov, Active Dexamethasone nausea and vomiting Drug Allergy Nov, Active Azithromycin hives Drug Allergy Nov, Active Amoxicillin hives Drug Allergy Nov, Active Adhesive Unknown Non Drug Allergy Nov, Active Tape Unknown Non Drug Allergy Nov, Active ENCOUNTERS Encounter Location Date Diagnosis [facility] [address] [facility] [id number] [address] Aug, [facility] [address] [facility] [id number] [address] Jul, Renal stones N20.0 [facility] [id number] [place] [address] 96224 -5561 Jun, Back pain M54.9 ; Kidney stones N20.0 and BMI 50.0-59.9, adult Z68.43 [facility] [address] [place] [id number] [place] [address] 08854- 6582 Jun, [facility] [address] [address]- [address]89 Apr, [place] [address] [place] [id number] [place] [address] 09352- 0335 Apr, [place] [address] 9[address]57- 0658 Apr, Right foot pain M79.671 ; Acute gout involving toe of right foot, 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 and Arthritis M19.90 [place] [address] 7[address]17- 2097 06 Apr, 2017 Gastroesophageal reflux disease without esophagitis K21.9 [place] [address] [place] [id number] [place] [address] 36164- 3057 16 Mar, 2017 Hypothyroidism, unspecified E03.9 [facility] [address] [place] [id number] [place] [address] 15150- 7834 Feb, [place] [address] [place] [id number] [place] [address] 32348- 0282 25 Jan, 2017 Cervicalgia of asorlyds-rzxngul-eelbp region M54.2 and Persistent headaches R51 [place] [address] [place] [id number] [place] [address] 47415- 0229 Jan, [place] [address] 91242- 8061 12 Jan, 2017 Intractable migraine without aura and with status migrainosus G43.011 ; Cervical spine pain M54.2 ; Hyperlipidemia, unspecified hyperlipidemia type E78.5 ; Hypothyroidism E03.9 and Metabolic syndrome E88.81 [place] [address] [place] [id number] [place] [address] 70881- 1070 Jan, Hypothyroidism, unspecified E03.9 [place] [address] [place] [id number] [place] [address] 12152- 9425 Dec, Hypothyroidism, unspecified E03.[address] [address]- 6801 Dec, Hypothyroidism E03.[address] 84082- 3917 Nov, Laceration of left great toe w/o foreign body w/o damage to nail, initial encounter S91.112A [facility] [place] [id number] [place] [address] 51927 -9451 Oct, Pain in left knee M25.562 and Arthritis M19.[address] 7[address]38- 0775 Oct, Hypothyroidism, unspecified E03.9 and Hyperlipidemia, unspecified hyperlipidemia type E78.[address] 69994- 4503 Oct, Gastroesophageal reflux disease without esophagitis K21.9 [place] [id number] [place] [address] 10041- 0109 14 Oct, 2016 Metabolic syndrome E88.81 ; Personal history of pulmonary embolism Z86.711 ; Other specified hypothyroidism E03.8 and Hyperlipidemia, unspecified hyperlipidemia type E78.5 [place] [id number] [place] [address] 40260- 5498 13 Oct, 2016 Personal history of pulmonary embolism Z86.711 ; Dysuria R30.0 ; Metabolic syndrome E88.81 ; Other specified hypothyroidism E03.8 ; Hyperlipidemia, unspecified hyperlipidemia type E78.5 and Morbid obesity with BMI of 50.0-59.9, adult Z68.[address] 22062- 1269 September, [facility] [place] [id number] [place] [address] 84097 -4611 September, Wrist pain, left M25.532 and Acute pain of left knee M25.562 [place] [address] [address] 0940 Jul, Dysuria R30.0 [place] [address] [place] [id number] [place] [address] 82831- 8238 Jul, Dysuria R30.0 [place] [address] [place] [id number] [place] [address] 63558- 1098 Jul, Left lower quadrant pain R10.32 [place] [address] [place] [id number] [place] [address] 65933- 2507 Jul, [place] [address] [place] [id number] [place] [address] 25337- 2723 Jul, Coronary artery disease I25.10 ; Family history of diabetes mellitus Z83.3 ; Morbid obesity with BMI of 50.0-59.9, adult Z68.43 ; Metabolic syndrome E88.81 ; Personal history of pulmonary embolism Z86.711 ; Gastroesophageal reflux disease without esophagitis K21.9 ; Hypothyroidism, unspecified E03.9 ; Hyperlipidemia, unspecified hyperlipidemia type E78.5 and Left lower quadrant pain R10.32 [facility] [address] [address] Jul, [facility] [place] [id number] [place] [address] 27185 -1763 Jul, Morbid obesity with BMI of 50.0-59.9, adult Z68.43 [facility] [address] [place] [address] 47706 -5990 Jul, Generalized abdominal pain R10.84 [facility] [address] [address] 02 Feb, 2017 Muscle strain of right upper back, initial encounter S29.012A [facility] [address] [place] [id number] [place] [address] 73066 -7472 May, Foreign body (FB) in soft tissue M79.5 [place] [address] [place] [id number] [place] [address] 56040- 7136 Mar, Hypothyroidism, unspecified E03.9 and Arthritis M19.90 [place] [address] 84180- 3243 13 Feb, 2016 Coronary artery disease I25.10 ; Morbid obesity with BMI of 50.0-59.9, adult Z68.43 ; Metabolic syndrome E88.81 ; Gastroesophageal reflux disease without esophagitis K21.9 ; Hypothyroidism, unspecified E03.9 ; Personal history of pulmonary embolism Z86.711 and Hyperlipidemia, unspecified hyperlipidemia type E78.5 [place] [address] 67099- 2731 Feb, [facility] [place] [address] [place] [id number] [place] [address] 60642 -3419 Jan, Acute right-sided thoracic back pain M54.6 [place] [address] 19437- 3682 Jan, Acute pain of left knee M25.562 [place] [address] [place] [id number] [place] [address] 37467- 1352 Dec, Dysuria R30.0 ; Metabolic syndrome E88.81 ; Acute pain of left knee M25.562 ; Acute cystitis with hematuria N30.01 and Acute left eye pain H57.12 [place] [address] 70267- 6169 Dec, [place] [address] 49552- 9700 Dec, [place] [address] [place] [id number] [place] [address] 86578- 1831 Dec, Hypothyroidism, unspecified E03.9 [place] [address] [place] [address] 60711- 2035 Dec, [place] [address] [place] [id number] [place] [address] 27009- 5859 Nov, Peripheral edema R60.9 and Acute pain of left knee M25.562 [facility] [place] [address] [place] [id number] [place] [address] 36636 -3294 September, [place] [address] [place] [id number] [place] [address] 37040- 3363 September, Metabolic syndrome E88.81 and Allergy, subsequent encounter T78.40XD [facility] [place] [address] [place] [id number] [place] [address] 00655 -3506 September, Muscle strain T14.8 [place] [address] [place] [id number] [place] [address] 86163- 6987 Aug, Chest pressure R07.89 ; Metabolic syndrome E88.81 ; Morbid obesity with BMI of 50.0-59.9, adult Z68.43 ; Esophageal reflux 530.81 and Shortness of breath R06.02 [place] [address] [place] [id number] [place] [address] 72025- 0889 Aug, [place] [address] [place] [id number] [place] [address] 02719- 3472 Aug, [place] [address] [place] [id number] [place] [address] 90100- 5885 Aug, Hypothyroidism, unspecified E03.9 [place] [address] [place] [id number] [place] [address] 29331- 5412 Aug, Routine health maintenance Z00.00 [facility] [place] [address] [place] [id number] [place] [address] 74928 -7996 Aug, [place] [address] [place] [id number] [place] [address] 50431- 2949 Jul, Routine health maintenance Z00.00 ; Family history of diabetes mellitus Z83.3 ; Family history of cancer Z80.9 and Morbid obesity with BMI of 50.0-59.9, adult Z68.43 [facility] [address] [place] [id number] [place] [address] 00035 -5708 28 Jul, 2016 Allergic rhinitis J30.9 and Postnasal drip R09.82 [place] [address] 66588- 3768 18 Jul, 2015 Influenza J11.1 [facility] [address] 41906 -3059 08 Jul, 2015 Dysuria R30.0 [place] [address] 21332- 8005 Apr, [place] [address] 21444- 9592 Mar, Acute upper respiratory infection, unspecified J06.9 and Hypothyroidism E03.9 [place] [address] [place] [id number] [place] [address] 06261- 9978 Mar, [place] [address] 90642- 6734 Feb, Coronary artery disease I25.10 [place] [address] 19976- 1818 Feb, Left foot pain M79.672 [place] [address] 82292- 2295 Jan, UTI (urinary tract infection) 599.0 [place] [address] 85846- 3438 Jan, Urinary tract infection, site not specified 599.0 [place] [address] [place] [id number] [place] [address] 33558- 7589 Jan, Urinary tract infection, site not specified 599.0 [place] [address] 91960- 4893 Jan, [facility] [address] [address]- 0328 Dec, Headache 784.0 [facility] [address] [address]- 2898 Dec, Urinary tract infection, site not specified 599.0 [facility] [address] [place] [id number] [place] [address] 02157- 9648 Dec, Urinary tract infection, site not specified 599.0 [facility] [address] [address]- 6157 Dec, Urinary tract infection, site not specified 599.0 [facility] [address] [address]- 7233 Nov, Unspecified sleep apnea 780.57 ; Encounter for long-term ( current) use of anticoagulants V58.61 ; Routine general medical examination at health care facility V70.0 and Arthritis of both knees 716.96 [facility] [address] [address]- 7843 September, Cat bite of hand 882.0 and Rectal bleeding 569.3 [facility] [address] [address]- 0229 Aug, [facility] [address] [address]- 8353 Aug, [facility] [address] [address]- 6982 Jul, [facility] [address] [address]- 7057 Jul, [facility] [address] [address]- 6503 Jul, [facility] [address] [place] [id number] [address]- 1622 Jul, [facility] [place] [facility] [address] [id number] [place] [address]- 2937 Jul, [facility] [place] [facility] [address] [id number] [place] [address]- 9849 Jul, [facility] [place] [facility] [address] [id number] [place] [address]- 8372 Jul, [facility] [place] [facility] [address] [id number] [place] [address]- 2707 Jul, [facility] [place] [facility] [address] [id number] [place] [address]- 7490 May, [facility] [place] [facility] [address] [id number] [place] [address]- 4049 May, [facility] [place] [facility] [address] [id number] [place] [address]- 8708 May, [facility] [place] [facility] [address] [id number] [place] [address]- 2044 May, [facility] [place] [facility] [address] [id number] [place] [address]- 8120 May, [facility] [place] [facility] [address] [id number] [place] [address]- 2902 May, [facility] [place] [facility] [address] [id number] [place] [address]- 3294 May, [facility] [place] [facility] [address] [id number] [place] [address]- 9553 Mar, [facility] [place] [facility] [address] [id number] [place] [address]- 3969 Mar, [facility] [place] [facility] [address] [id number] [place] [address]- 6111 Jan, [facility] [place] [facility] [address] [id number] [place] [address]- 0938 Jan, [facility] [place] [facility] [address] [id number] [place] [address]- 3480 Jan, [facility] [place] [facility] [address] [id number] [place] [address]- 7338 Jan, [facility] [place] [facility] [address] [id number] [place] [address]- 6140 Jan, [facility] [place] [facility] [address] [id number] [place] [address]- 4048 Jan, [facility] [place] [facility] [address] [id number] [place] [address]- 6257 Dec, [facility] [place] [facility] [address] [id number] [place] [address]- 4156 Dec, [facility] [place] [facility] [address] [id number] [place] [address]- 9540 Dec, [facility] [place] [facility] [address] [id number] [place] [address]- 4188 Dec, [facility] [place] [facility] [address] [id number] [place] [address]- 3618 Dec, [facility] [place] [facility] [address] [id number] [place] [address]- 9500 Dec, [facility] [place] [facility] [address] [id number] [place] [address]- 2445 Dec, [facility] [place] [facility] [address] [id number] [place] [address]- 4679 Dec, [facility] [place] [facility] [address] [id number] [place] [address]- 7180 Dec, [facility] [place] [facility] [address] [id number] [place] [address]- 8935 Dec, [facility] [place] [facility] [address] [id number] [place] [address]- 4037 Nov, [facility] [place] [facility] [address] [id number] [place] [address]- 6492 Nov, [facility] [place] [facility] [address] [id number] [place] [address]- 7809 September, [facility] [address] [id number] [place] [address]- 2965 September, [facility] [address] [id number] [place] [address]- 4477 September, [facility] [address] [id number] [place] [address]- 6052 September, [facility] [address] [id number] [place] [address]- 0986 Aug, [facility] [address] [id number] [place] [address]- 8442 Aug, [facility] [address] [id number] [place] [address]- 0001 Aug, [facility] [address] [id number] [place] [address]- 0407 Aug, [facility] [address] [id number] [place] [address]- 5290 Aug, [facility] [address] [id number] [place] [address]- 4911 Aug, [facility] [address] [id number] [place] [address]- 2595 Aug, [facility] [place] [facility] [address] [id number] [place] [address]- 8328 Aug, [facility] [place] [facility] [address] [id number] [place] [address]- 9596 Aug, [facility] [place] [facility] [address] [id number] [place] [address]- 9612 Aug, [facility] [place] [facility] [address] [id number] [place] [address]- 8828 Aug, [facility] [place] [facility] [address] [id number] [place] [address]- 3587 Aug, [facility] [place] [facility] [address] [id number] [place] [address]- 4586 Jul, [facility] [place] [facility] [address] [id number] [place] [address]- 7420 Jul, [facility] [place] [facility] [address] [id number] [place] 3769 Jul, [facility] [place] [facility] [address] [id number] [place] [address]- 0298 Jul, [facility] [place] [facility] [address] [id number] [place] 9850 Jul, [facility] [place] [facility] [address] [id number] [place] [address]- 3525 Jul, [facility] [place] [facility] [address] [id number] [place] [address]- 6160 Jul, [facility] [place] [facility] [address] [id number] [place] [address]- 0020 Jul, [facility] [place] [facility] [address] [id number] [place] [address]- 5295 Jul, [facility] [place] [facility] [address] [id number] [place] [address]- 2984 Jul, [facility] [place] [facility] [address] [id number] [place] [address]- 9909 Jun, [facility] [place] [facility] [address] [id number] [place] [address]- 3547 Jun, [facility] [place] [facility] [address] [id number] [place] [address]- 7145 Jun, [facility] [place] [facility] [address] [id number] [place] [address]- 9476 17 Jun, 2013 [facility] [place] [facility] [address] [id number] [place] [address]- 9455 13 Jun, 2013 [facility] [place] [facility] [address] [id number] [place] [address]- 1189 Jun, [facility] [place] [facility] [address] [id number] [place] [address]- 3036 Jun, [facility] [place] [facility] [address] [id number] [place] [address]- 6336 Jun, [facility] [place] [facility] [address] [id number] [place] [address]- 9906 Jun, [facility] [place] [facility] [address] [id number] [place] [address]- 9054 Jun, [facility] [place] [facility] [address] [id number] [place] [address]- 1896 Jun, [facility] [place] [facility] [address] [id number] [place] [address]- 1771 Jun, [facility] [place] [facility] [address] [id number] [place] [address]- 8796 May, [facility] [place] [facility] [address] [id number] [place] [address]- 7078 May, [facility] [place] [facility] [address] [id number] [place] [address]- 9310 May, [facility] [place] [facility] [address] [id number] [place] [address]- 9980 May, [facility] [place] [facility] [address] [id number] [place] [address]- 1017 May, [facility] [place] [facility] [address] [id number] [place] [address]- 3772 May, [facility] [place] [facility] [address] [id number] [place] [address]- 4995 May, [facility] [place] [facility] [address] [id number] [place] [address]- 7406 May, [facility] [place] [facility] [address] [id number] [place] [address]- 1653 May, [facility] [address] [id number] [place] [address]- 6272 May, [facility] [place] [facility] [address] [id number] [place] [address]- 9322 May, [facility] [place] [facility] [address] [id number] [place] [address]- 5699 May, [facility] [place] [facility] [address] [id number] [place] [address]- 8853 May, [facility] [place] [facility] [address] [id number] [place] [address]- 6271 May, [facility] [place] [facility] [address] [id number] [place] [address]- 8788 May, [facility] [place] [facility] [address] [id number] [place] [address] Apr, [facility] [place] [facility] [address] [id number] [address] Apr, [facility] [place] [facility] [address] [id number] [place] [address] Apr, [facility] [place] [facility] [address] [id number] [address] Apr, [facility] [place] [facility] [address] [id number] [address] Mar, [facility] [place] [facility] [address] [id number] [address] Mar, [facility] [place] [facility] [address] [id number] [place] [address] Mar, [facility] [place] [facility] [address] [id number] [place] [address] Mar, [facility] [place] [facility] [address] [id number] [place] [address] Mar, [facility] [place] [facility] [address] [id number] [place] [address] Mar, [facility] [place] [facility] [address] [id number] [place] [address] Mar, [facility] [place] [facility] [address] [id number] [place] [address] Mar, [facility] [place] [facility] [address] [id number] [place] [address] Mar, [facility] [place] [facility] [address] [id number] [place] [address] Mar, [facility] [place] [facility] [address] [id number] [place] [address] Mar, [facility] [place] [facility] [address] [id number] [place] [address] Mar, [facility] [place] [facility] [address] [id number] [place] [address] Feb, [facility] [place] [facility] [address] [id number] [place] [address] 18 Jan, 2013 [facility] [place] [facility] [address] [id number] [place] [address] 17 Jan, 2013 [facility] [place] [facility] [address] [facility] [id number] [place] [address] 06 Jan, 2013 [facility] [place] [facility] [address] [id number] [place] [address] 04 Jan, 2012 [facility] [place] [facility] [address] [id number] [place] [address] Jan, [facility] [place] [facility] [address] [id number] [place] [address] Dec, [facility] [place] [facility] [address] [id number] [place] [address] Dec, [facility] [place] [facility] [address] [id number] [place] [address] Dec, [facility] [place] [facility] [address] [id number] [place] [address] Dec, [facility] [place] [facility] [address] [id number] [place] [address] Dec, [facility] [place] [facility] [address] [id number] [place] [address] Dec, [facility] [place] [facility] [address] [id number] [place] [address] Dec, [facility] [place] [facility] [address] [id number] [place] [address] Dec, [facility] [place] [facility] [address] [id number] [place] [address] Nov, [facility] [place] [facility] [address] [id number] [place] [address] Nov, [facility] [place] [facility] [address] [id number] [place] [address] Nov, [facility] [place] [facility] [address] [id number] [place] [address] Nov, [facility] [place] [facility] [address] [id number] [place] [address] Nov, [facility] [place] [facility] [address] [id number] [place] [address] Nov, [facility] [place] [facility] [address] [id number] [place] [address] Oct, [facility] [address] [id number] [place] [id number] Oct, [facility] [address] [id number] [place] [id number] Oct, [facility] [address] [id number] [place] [id number] Oct, [facility] [address] [id number] [place] [id number] Oct, [facility] [place] [facility] [address] [id number] [place] [address] 13 Oct, 2012 [facility] [address] [id number] [place] [address] Oct, [facility] [address] [id number] [place] [address] Oct, [facility] [address] [id number] [place] [address] Oct, [facility] [address] [id number] [place] [address] Oct, [facility] [address] [id number] [place] [address] Oct, [facility] [address] [id number] [place] [address] September, [facility] [address] [id number] [place] [address] Aug, [facility] [address] [id number] [place] [address] Aug, [facility] [address] [id number] [place] [address] Aug, [facility] [address] [id number] [place] [address] Aug, [facility] [address] [id number] [place] [address] 24 Jul, 2012 [facility] [address] [id number] [place] [address] Jul, [facility] [place] [facility] [address] [id number] [place] [address] Jul, [facility] [address] [id number] [place] [address] 05 Jul, 2012 [facility] [address] [id number] [place] [address] Jul, [facility] [place] [facility] [address] [id number] [place] [address] 19 Jun, 2012 [facility] [address] [id number] [place] [address] Jun, [facility] [address] [id number] [place] [address] Jun, [facility] [place] [facility] [address] [id number] [place] [address] May, [facility] [address] [id number] [place] [address] 24 May, 2012 [facility] [address] [id number] [place] [address] May, [facility] [address] [id number] [place] [address] May, [facility] [address] [id number] [place] [address] May, [facility] [address] [id number] [place] [address] May, [facility] [address] [id number] [place] [address] 18 Apr, 2012 [facility] [address] [id number] [place] [address] 18 Apr, 2012 [facility] [place] [facility] [address] [id number] [address] 13 Apr, 2012 [facility] [place] [facility] [address] [id number] [place] [address] 13 Apr, 2012 [facility] [place] [facility] [address] [id number] [place] [address] 13 Apr, 2012 [facility] [place] [facility] [address] [id number] [place] [address] 11 Apr, 2012 [facility] [place] [facility] [address] [id number] [address] Apr, [facility] [place] [facility] [address] [id number] [place] [address] Mar, [facility] [place] [facility] [address] [id number] [address] Mar, [facility] [place] [facility] [address] [id number] [place] [address] Mar, [facility] [place] [facility] [address] [id number] [place] [address] Mar, [facility] [place] [facility] [address] [id number] [place] [address] Jan, [facility] [place] [facility] [address] [id number] [place] [address] Jan, [facility] [place] [facility] [id number] [address] Jan, [facility] [place] [facility] [address] [id number] [address] Jan, [facility] [address] [id number] [id number] Dec, [facility] [place] [facility] [address] [facility] [id number] [address] Dec, [facility] [address] [id number] [id number] Dec, [facility] [place] [facility] [address] [id number] [address] Dec, [facility] [place] [facility] [address] [id number] [place] [address] Dec, [facility] [place] [facility] [address] [facility] [id number] [address] Dec, [facility] [place] [facility] [address] [id number] [place] [address] Nov, [facility] [place] [facility] [address] [facility] [id number] [place] [address] Nov, [facility] [address] [facility] [id number] [place] [address] Nov, IMMUNIZATIONS No Known Immunizations SOCIAL HISTORY Never Assessed REASON FOR VISIT cut toe/pain--tcuppettRN, -Dropped a knife on her left great toe on November 11. Having severe pain. PLAN OF CARE Activity Details Follow Up prn Reason: VITAL SIGNS Height 64 in 2016-11-18 Weight 323.3 lbs 2016-11-18 Temperature 98.2 degrees Fahrenheit 2016-11-18 Heart Rate 70 bpm 2016-11-18 Respiratory Rate 20 2016-11-18 BMI 55.49 kg/m2 2016-11-18 Blood pressure systolic 112 mmHg 2016-11-18 Blood pressure diastolic 60 mmHg 2016-11-18 MEDICATIONS Medication Instructions Dosage Frequency Start Date End Date Duration Status Warfarin Sodium 7.5 MG Orally 3x weekly 1 tablet Active Test strips Test Strips ICD10- E11.9 fasting and 2 hours after one meal daily 2 times weekly. test blood sugar Aug, Active Glucometer glucometer ICD10- E11.9 fasting and 2 hours after one meal daily 3 times weekly. test blood sugar Aug, Active Sulfamethoxazole-Trimethoprim 800-160 MG Orally Twice a day 1 tablet 12h Nov, Nov, 10 day(s) Active Tylenol Extra Strength 500 MG Nov, Active Albuterol Sulfate 2.5 mg /3 mL (0.083 %) 1 Each by Inhalation route every 4 hours for cough and wheezePRNfor wheezing or cough Nov, Active Warfarin Sodium 5 mg Orally 4x weekly 1 tablet Active Levothyroxine Sodium 150 MCG Orally Once a day TAKE ONE TABLET BY MOUTH ONCE DAILY IN THE MORNING ON AN EMPTY STOMACH 24h Active Albuterol Sulfate 90 mcg/actuation Inhalation every 4 hrs inhale 1 puff by inhalation route every 4 hours as needed 4h Jun, 30 days Active Omeprazole 20 mg Orally Once a day 1 tablet 24h Jan, 30 days Active Simvastatin 20 MG Orally Once a day 1 tablet in the evening 24h Aug, Active RESULTS No Results PROCEDURES Procedure Date Ordered Result Body Site [facility] VISIT ESTABLISHED PATIENT November 18, 2016 INSTRUCTIONS MEDICATIONS ADMINISTERED No Known Medications MEDICAL [...]
--- OUTSIDE RECORDS SUMMARY | 2017-08-20 11:51 | XMS REPORT | Continuity of Care Document ---
Author Author [facility] Address Unknown Phone Unavailable Allergies Active Description Code Type Severity Reaction Onset Reported/Identified Relationship to Patient Clinical Status Yes methylprednisolone [id number] Drug Allergy Mild N/A 09/07/2009 Yes Penicillins [id number] Drug Allergy Unknown N/A 08/28/2011 Yes Amoxicillin Drug Allergy N/A N/A 12/05/2011 Yes dexamethasone Drug Allergy N/ A N/A 12/05/2011 Yes methylprednisolone Drug Allergy N/A N/A 12/05/2011 Yes Phenergan Plain Drug Allergy N/A N/A 12/05/2011 Yes ADHESIVE Drug Allergy 12/05/2011 Yes Amoxicillin Drug Allergy 12/05/2011 Yes dexamethasone Drug Allergy 12/05/2011 Yes HONEY BEE VENOM Drug Allergy 12/05/2011 Yes methylprednisolone Drug Allergy 12/05/2011 Yes Phenergan Plain Drug Allergy 12/05/2011 Yes TAPE Drug Allergy 12/05/2011 Yes Levothroid 125 mcg tablet Drug Allergy N/A N/A 03/19/2012 Yes Levothroid 125 mcg tablet Drug Allergy 03/19/2012 Yes TAPE TAPE Unknown N/A 08/16/2013 Yes bee venom (honey bee) [id number] Drug Allergy Unknown N/A 02/02/2014 Yes promethazine [id number] Drug Allergy Unknown hallucinations 02/02/2014 Yes venom-honey bee [id number] Drug Allergy Unknown N/A 02/02/2014 Yes ketorolac [id number] Drug Allergy Unknown ITCHING 04/12/2015 Medications There is no data. 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 03/04/2011 Ot 784.0 HEADACHE 08/28/2011 Ot 626.8 MENSTRUAL DISORDER NEC 10/29/2011 Ot 729.5 PAIN IN LIMB 11/27/2011 Ot 571.8 CHRONIC LIVER DIS NEC 11/27/2011 Ot 786.05 SHORTNESS OF BREATH 12/05/2011 786.05 SHORTNESS OF BREATH 12/05/2011 789.00 ABDOMINAL PAIN UNSPECIFIED SITE 12/05/2011 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 12/05/2011 V70.0 ROUTINE GENERAL MEDICAL EXAMINATION AT A HEALTH CARE FACILITY 12/05/2011 786.05 SHORTNESS OF BREATH 12/05/2011 789.00 ABDOMINAL PAIN UNSPECIFIED SITE 12/05/2011 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 12/05/2011 V70.0 ROUTINE GENERAL MEDICAL EXAMINATION AT A HEALTH CARE FACILITY 12/05/2011 786.05 SHORTNESS OF BREATH 12/05/2011 789.00 ABDOMINAL PAIN UNSPECIFIED SITE 12/05/2011 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 12/05/2011 V70.0 ROUTINE GENERAL MEDICAL EXAMINATION AT A HEALTH CARE FACILITY 12/05/2011 JOSE ALBERTO ARIZA DO 786.05 SHORTNESS OF BREATH 12/05/2011 JOSE ALBERTO ARIZA DO 789.00 ABDOMINAL PAIN UNSPECIFIED SITE 12/05/2011 JOSE ALBERTO ARIZA DO 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 12/05/2011 JOSE ALBERTO ARIZA DO V70.0 ROUTINE GENERAL MEDICAL EXAMINATION AT A HEALTH CARE FACILITY 12/05/2011 JOSE ALBERTO ARIZA DO 786.05 Shortness Of Breath 12/05/2011 JOSE ALBERTO ARIZA DO 789.00 Abdominal Pain Unspecified Site 12/05/2011 JOSE ALBERTO ARIZA DO V12.55 Personal History Of Pulmonary Embolism 12/05/2011 JOSE ALBERTO ARIZA DO V70.0 ROUTINE GENERAL MEDICAL EXAMINATION AT A HEALTH CARE FACILITY 12/05/2011 786.05 Shortness Of Breath 12/05/2011 789.00 Abdominal Pain Unspecified Site 12/05/2011 V12.55 Personal History Of Pulmonary Embolism 12/05/2011 V70.0 ROUTINE GENERAL MEDICAL EXAMINATION AT A HEALTH CARE FACILITY 12/05/2011 VIVEK CALABRESE-CCHARLES 786.05 Shortness Of Breath 12/05/2011 VIVEK CALABRESE-CCHARLES M 789.00 Abdominal Pain Unspecified Site 12/05/2011 VIVEK CALABRESE-CCHARLES M V12.55 Personal History Of Pulmonary Embolism 12/05/2011 VIVEK CALABRESE-CCHARLES M V70.0 ROUTINE GENERAL MEDICAL EXAMINATION AT A HEALTH CARE FACILITY 12/05/2011 JOSE ALBERTO ARIZA DO 786.05 Shortness Of Breath 12/05/2011 JOSE ALBERTO ARIZA DO K 789.00 Abdominal Pain Unspecified Site 12/05/2011 JOSE ALBERTO ARIZA DO V12.55 Personal History Of Pulmonary Embolism 12/05/2011 JOSE ALBERTO ARIZA DO V70.0 ROUTINE GENERAL MEDICAL EXAMINATION AT A HEALTH CARE FACILITY 12/05/2011 JOSE ALBERTO ARIZA DO 786.05 Shortness Of Breath 12/05/2011 JOSE ALBERTO ARIZA DO K 789.00 Abdominal Pain Unspecified Site 12/05/2011 JOSE ALBERTO ARIZA DO V12.55 Personal History Of Pulmonary Embolism 12/05/2011 JOSE ALBERTO ARIZA DO V70.0 ROUTINE GENERAL MEDICAL EXAMINATION AT A HEALTH CARE FACILITY 12/05/2011 786.05 Shortness Of Breath 12/05/2011 789.00 Abdominal Pain Unspecified Site 12/05/2011 V12.55 Personal History Of Pulmonary Embolism 12/05/2011 V70.0 ROUTINE GENERAL MEDICAL EXAMINATION AT A HEALTH CARE FACILITY 12/05/2011 786.05 Shortness Of Breath 12/05/2011 789.00 Abdominal Pain Unspecified Site 12/05/2011 V12.55 Personal History Of Pulmonary Embolism 12/05/2011 V70.0 ROUTINE GENERAL MEDICAL EXAMINATION AT A HEALTH CARE FACILITY 12/05/2011 786.05 Shortness Of Breath 12/05/2011 789.00 Abdominal Pain Unspecified Site 12/05/2011 V12.55 Personal History Of Pulmonary Embolism 12/05/2011 V70.0 ROUTINE GENERAL MEDICAL EXAMINATION AT A HEALTH CARE FACILITY 12/05/2011 786.05 Shortness Of Breath 12/05/2011 789.00 Abdominal Pain Unspecified Site 12/05/2011 V12.55 Personal History Of Pulmonary Embolism 12/05/2011 V70.0 ROUTINE GENERAL MEDICAL EXAMINATION AT A HEALTH CARE FACILITY 12/05/2011 786.05 Shortness Of Breath 12/05/2011 789.00 Abdominal Pain Unspecified Site 12/05/2011 V12.55 Personal History Of Pulmonary Embolism 12/05/2011 V70.0 ROUTINE GENERAL MEDICAL EXAMINATION AT A HEALTH CARE FACILITY 12/05/2011 786.05 Shortness Of Breath 12/05/2011 789.00 Abdominal Pain Unspecified Site 12/05/2011 V12.55 Personal History Of Pulmonary Embolism 12/05/2011 V70.0 ROUTINE GENERAL MEDICAL EXAMINATION AT A HEALTH CARE FACILITY 12/05/2011 786.05 Shortness Of Breath 12/05/2011 789.00 Abdominal Pain Unspecified Site 12/05/2011 V12.55 Personal History Of Pulmonary Embolism 12/05/2011 V70.0 ROUTINE GENERAL MEDICAL EXAMINATION AT A HEALTH CARE FACILITY 12/05/2011 ARIZA DO, JOSE ALBERTO K 786.05 Shortness Of Breath 12/05/2011 ARIZA DO, JOSE ALBERTO K 789.00 Abdominal Pain Unspecified Site 12/05/2011 ARIZA DO, JOSE ALBERTO K V12.55 Personal History Of Pulmonary Embolism 12/05/2011 ARIZA DO, JOSE ALBERTO K V70.0 ROUTINE GENERAL MEDICAL EXAMINATION AT A HEALTH CARE FACILITY 12/05/2011 ARIZA DO, JOSE ALBERTO K 786.05 Shortness Of Breath 12/05/2011 ARIZA DO, JOSE ALBERTO K 789.00 Abdominal Pain Unspecified Site 12/05/2011 ARIZA DO, JOSE ALBERTO K V12.55 Personal History Of Pulmonary Embolism 12/05/2011 ARIZA DO, JOSE ALBERTO K V70.0 ROUTINE GENERAL MEDICAL EXAMINATION AT A HEALTH CARE FACILITY 12/05/2011 ARIZA DO, JOSE ALBERTO K 786.05 Shortness Of Breath 12/05/2011 ARIZA DO, JOSE ALBERTO K 789.00 Abdominal Pain Unspecified Site 12/05/2011 ARIZA DO, JOSE ALBERTO K V12.55 Personal History Of Pulmonary Embolism 12/05/2011 ARIZA DO, JOSE ALBERTO K V70.0 ROUTINE GENERAL MEDICAL EXAMINATION AT A HEALTH CARE FACILITY 12/05/2011 ARIZA DO, JOSE ALBERTO K 786.05 Shortness Of Breath 12/05/2011 ARIZA DO, JOSE ALBERTO K 789.00 Abdominal Pain Unspecified Site 12/05/2011 ARIZA DO, JOSE ALBERTO K V12.55 Personal History Of Pulmonary Embolism 12/05/2011 ARIZA DO, JOSE ALBERTO K V70.0 ROUTINE GENERAL MEDICAL EXAMINATION AT A HEALTH CARE FACILITY 12/05/2011 ARIZA DO, JOSE ALBERTO K 786.05 Shortness Of Breath 12/05/2011 ARIZA DO, JOSE ALBERTO K 789.00 Abdominal Pain Unspecified Site 12/05/2011 ARIZA DO, JOSE ALBERTO K V12.55 Personal History Of Pulmonary Embolism 12/05/2011 ARIZA DO, JOSE ALBERTO K V70.0 ROUTINE GENERAL MEDICAL EXAMINATION AT A HEALTH CARE FACILITY 12/05/2011 ARIZA DO, JOSE ALBERTO K 786.05 Shortness Of Breath 12/05/2011 ARIZA DO, JOSE ALBERTO K 789.00 Abdominal Pain Unspecified Site 12/05/2011 ARIZA DO, JOSE ALBERTO K V12.55 Personal History Of Pulmonary Embolism 12/05/2011 ARIZA DO, JOSE ALBERTO K V70.0 ROUTINE GENERAL MEDICAL EXAMINATION AT A HEALTH CARE FACILITY 12/05/2011 ARIZA DO, JOSE ALBERTO K 786.05 Shortness Of Breath 12/05/2011 ARIZA DO, JOSE ALBERTO K 789.00 Abdominal Pain Unspecified Site 12/05/2011 ARIZA DO, JOSE ALBERTO K V12.55 Personal History Of Pulmonary Embolism 12/05/2011 ARIZA DO, JOSE ALBERTO K V70.0 ROUTINE GENERAL MEDICAL EXAMINATION AT A HEALTH CARE FACILITY 12/05/2011 VIVIENNE MAXNRICKYDONI S 786.05 Shortness Of Breath 12/05/2011 VIVIENNE BOAT FUELER DONI S 789.00 Abdominal Pain Unspecified Site 12/05/2011 RICKY PALAFOX APRNNDA S V12.55 Personal History Of Pulmonary Embolism 12/05/2011 VIVIENNE BOAT FUELER DONI S V70.0 ROUTINE GENERAL MEDICAL EXAMINATION AT A HEALTH CARE FACILITY 12/05/2011 ARIZA DO, JOSE ALBERTO K 786.05 Shortness Of Breath 12/05/2011 ARIZA DO, JOSE ALBERTO K 789.00 Abdominal Pain Unspecified Site 12/05/2011 ARIZA DO, JOSE ALBERTO K V12.55 Personal History Of Pulmonary Embolism 12/05/2011 ARIZA DO, JOSE ALBERTO K V70.0 ROUTINE GENERAL MEDICAL EXAMINATION AT A HEALTH CARE FACILITY 12/05/2011 ARIZA DO, JOSE ALBERTO K 786.05 Shortness Of Breath 12/05/2011 ARIZA DO, JOSE ALBERTO K 789.00 Abdominal Pain Unspecified Site 12/05/2011 ARIZA DO, JOSE ALBERTO K V12.55 Personal History Of Pulmonary Embolism 12/05/2011 ARIZA DO, JOSE ALBERTO K V70.0 ROUTINE GENERAL MEDICAL EXAMINATION AT A HEALTH CARE FACILITY 12/05/2011 ARIZA DO, JOSE ALBERTO K 786.05 Shortness Of Breath 12/05/2011 ARIZA DO, JOSE ALBERTO K 789.00 Abdominal Pain Unspecified Site 12/05/2011 ARIZA DO JOSE ALBERTO K V12.55 Personal History Of Pulmonary Embolism 12/05/2011 ARIZA DO, JOSE ALBERTO K V70.0 ROUTINE GENERAL MEDICAL EXAMINATION AT A HEALTH CARE FACILITY 12/05/2011 VALENCIA BOAT FUELER, CHERYL R 786.05 Shortness Of Breath 12/05/2011 VALENCIA BOAT FUELER, CHERYL R 789.00 Abdominal Pain Unspecified Site 12/05/2011 VALENCIA BOAT FUELER, CHERYL R V12.55 Personal History Of Pulmonary Embolism 12/05/2011 VALENCIA BOAT FUELER, CHERYL R V70.0 ROUTINE GENERAL MEDICAL EXAMINATION AT A HEALTH CARE FACILITY 12/05/2011 VIVEK PA-CCHARLES M 786.05 Shortness Of Breath 12/05/2011 VIVEK PA-C, CHARLES M 789.00 Abdominal Pain Unspecified Site 12/05/2011 VIVEK CALABRESE-CRENETTAUA M V12.55 Personal History Of Pulmonary Embolism 12/05/2011 VIVEK CALABRESE-CADALGISACHARLES M V70.0 ROUTINE GENERAL MEDICAL EXAMINATION AT A HEALTH CARE FACILITY 12/05/2011 ARIZA DO JOSE ALBERTO K 786.05 Shortness Of Breath 12/05/2011 ANNITA DO JOSE ALBERTO K 789.00 Abdominal Pain Unspecified Site 12/05/2011 ARIZA DO JOSE ALBERTO K V12.55 Personal History Of Pulmonary Embolism 12/05/2011 ARIZA DO, JOSE ALBERTO K V70.0 ROUTINE GENERAL MEDICAL EXAMINATION AT A HEALTH CARE FACILITY 12/05/2011 VALENCIA BOAT FUELER, CHERYL R 786.05 Shortness Of Breath 12/05/2011 VALENCIA BOAT FUELER, CHERYL R 789.00 Abdominal Pain Unspecified Site 12/05/2011 VALENCIA BOAT FUELER, CHERYL R V12.55 Personal History Of Pulmonary Embolism 12/05/2011 VALENCIA BOAT FUELER, CHERYL R V70.0 ROUTINE GENERAL MEDICAL EXAMINATION AT A HEALTH CARE FACILITY 12/05/2011 ARIZA DO, JOSE ALBERTO K 786.05 Shortness Of Breath 12/05/2011 ARIZA DO, JOSE ALBERTO K 789.00 Abdominal Pain Unspecified Site 12/05/2011 ARIZA DO, JOSE ALBERTO K V12.55 Personal History Of Pulmonary Embolism 12/05/2011 ARIZA DO, JOSE ALBERTO K V70.0 ROUTINE GENERAL MEDICAL EXAMINATION AT A HEALTH CARE FACILITY 12/05/2011 ARIZA DO, JOSE ALBERTO K 786.05 Shortness Of Breath 12/05/2011 ARIZA DO, JOSE ALBERTO K 789.00 Abdominal Pain Unspecified Site 12/05/2011 ARIZA DO, JOSE ALBERTO K V12.55 Personal History Of Pulmonary Embolism 12/05/2011 ARIZA DO, JOSE ALBERTO K V70.0 ROUTINE GENERAL MEDICAL EXAMINATION AT A HEALTH CARE FACILITY 12/05/2011 ARIZA DO, JOSE ALBERTO K 786.05 Shortness Of Breath 12/05/2011 ARIZA DO, JOSE ALBERTO K 789.00 Abdominal Pain Unspecified Site 12/05/2011 ARIZA DO, JOSE ALBERTO K V12.55 Personal History Of Pulmonary Embolism 12/05/2011 ARIZA DO, JOSE ALBERTO K V70.0 ROUTINE GENERAL MEDICAL EXAMINATION AT A HEALTH CARE FACILITY 12/05/2011 ARIZA DO, JOSE ALBERTO K 786.05 Shortness Of Breath 12/05/2011 ARIZA DO, JOSE ALBERTO K 789.00 Abdominal Pain Unspecified Site 12/05/2011 ARIZA DO, JOSE ALBERTO K V12.55 Personal History Of Pulmonary Embolism 12/05/2011 ARIZA DO, JOSE ALBERTO K V70.0 ROUTINE GENERAL MEDICAL EXAMINATION AT A HEALTH CARE FACILITY 12/05/2011 ARIZA DO, JOSE ALBERTO K 786.05 Shortness Of Breath 12/05/2011 ARIZA DO, JOSE ALBERTO K 789.00 Abdominal Pain Unspecified Site 12/05/2011 ARIZA DO, JOSE ALBERTO K V12.55 Personal History Of Pulmonary Embolism 12/05/2011 ARIZA DO, JOSE ALBERTO K V70.0 ROUTINE GENERAL MEDICAL EXAMINATION AT A HEALTH CARE FACILITY 12/05/2011 ARIZA DO, JOSE ALBERTO K 786.05 Shortness Of Breath 12/05/2011 ARIZA DO, JOSE ALBERTO K 789.00 Abdominal Pain Unspecified Site 12/05/2011 ARIZA DO, JOSE ALBERTO K V12.55 Personal History Of Pulmonary Embolism 12/05/2011 ARIZA DO, JOSE ALBERTO K V70.0 ROUTINE GENERAL MEDICAL EXAMINATION AT A HEALTH CARE FACILITY 12/05/2011 ARIZA DO, JOSE ALBERTO K 786.05 Shortness Of Breath 12/05/2011 ARIZA DO, JOSE ALBERTO K 789.00 Abdominal Pain Unspecified Site 12/05/2011 ARIZA DO JOSE ALBERTO K V12.55 Personal History Of Pulmonary Embolism 12/05/2011 ARIZA DO JOSE ALBERTO K V70.0 ROUTINE GENERAL MEDICAL EXAMINATION AT A HEALTH CARE FACILITY 12/05/2011 ARIZA DO JOSE ALBERTO K 786.05 Shortness Of Breath 12/05/2011 ARIZA DO, JOSE ALBERTO K 789.00 Abdominal Pain Unspecified Site 12/05/2011 ARIZA DO JOSE ALBERTO K V12.55 Personal History Of Pulmonary Embolism 12/05/2011 ARIZA DO JOSE ALBERTO K V70.0 ROUTINE GENERAL MEDICAL EXAMINATION AT A HEALTH CARE FACILITY 12/05/2011 ARIZA DO JOSE ALBERTO K 786.05 Shortness Of Breath 12/05/2011 ARIZA DO, JOSE ALBERTO K 789.00 Abdominal Pain Unspecified Site 12/05/2011 ARIZA DO JOSE ALBERTO K V12.55 Personal History Of Pulmonary Embolism 12/05/2011 ARIZA DO JOSE ALBERTO K V70.0 ROUTINE GENERAL MEDICAL EXAMINATION AT A HEALTH CARE FACILITY 12/05/2011 ARIZA DO JOSE ALBERTO K 786.05 Shortness Of Breath 12/05/2011 ARIZA DO, JOSE ALBERTO K 789.00 Abdominal Pain Unspecified Site 12/05/2011 ARIZA DO JOSE ALBERTO K V12.55 Personal History Of Pulmonary Embolism 12/05/2011 ARIZA DO JOSE ALBERTO K V70.0 ROUTINE GENERAL MEDICAL EXAMINATION AT A HEALTH CARE FACILITY 12/05/2011 MORIS LOYOLA MD 786.05 SHORTNESS OF BREATH 12/05/2011 MORIS LOYOLA MD 789.00 ABDOMINAL PAIN UNSPECIFIED SITE 12/05/2011 MORIS LOYOLA MD 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 12/05/2011 MORIS LOYOLA MD V70.0 ROUTINE GENERAL MEDICAL EXAMINATION AT A HEALTH CARE FACILITY 12/06/2011 V58.61 LONG-TERM ( 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 OF 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S 12/06/2011 V58.61 LONG-TERM ( 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 OF 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S 12/06/2011 V58.61 LONG-TERM ( 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 OF 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S 12/06/2011 CHRISTOPHER ARIZA DOA K V58.61 LONG-TERM (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 OF 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S 12/06/2011 ARIZA DO JOSE ALBERTO K V58.61 LONG-TERM (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 OF 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S 12/06/2011 V58.61 LONG-TERM ( 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 OF 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S 12/06/2011 CHARLES DOYLE PA-C V58.61 LONG-TERM (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 OF 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S 12/06/2011 ARIZA DO, JOSE ALBERTO K V58.61 LONG-TERM (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 OF 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S 12/06/2011 ARIZA DO, JOSE ALBERTO K V58.61 LONG-TERM (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 OF 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S 12/06/2011 V58.61 LONG-TERM ( 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 OF 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S 12/06/2011 V58.61 LONG-TERM ( 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 OF 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S 12/06/2011 V58.61 LONG-TERM ( 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 OF 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S 12/06/2011 V58.61 LONG-TERM ( 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 OF 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S 12/06/2011 V58.61 LONG-TERM ( 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 OF 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S 12/06/2011 V58.61 LONG-TERM ( 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 OF 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S 12/06/2011 V58.61 LONG-TERM ( 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 OF 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S 12/06/2011 ARIZA DO, JOSE ALBERTO K V58.61 LONG-TERM (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 OF 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S 12/06/2011 ARIZA DO, JOSE ALBERTO K V58.61 LONG-TERM (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 OF 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S 12/06/2011 ARIZA DO, JOSE ALBERTO K V58.61 LONG-TERM (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 OF 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S 12/06/2011 ARIZA DO, JOSE ALBERTO K V58.61 LONG-TERM (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 OF 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S 12/06/2011 ARIZA DO, JOSE ALBERTO K V58.61 LONG-TERM (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 OF 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S 12/06/2011 ARIZA DO, JOSE ALBERTO K V58.61 LONG-TERM (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 OF 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S 12/06/2011 ARIZA DO, JOSE ALBERTO K V58.61 LONG-TERM (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 OF 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S 12/06/2011 DONI PALAFOX APRN V58.61 LONG-TERM (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 OF 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S 12/06/2011 ARIZA DO, JOSE ALBERTO K V58.61 LONG-TERM (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 OF 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S 12/06/2011 ARIZA DO, JOSE ALBERTO K V58.61 LONG-TERM (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 OF 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S 12/06/2011 ARIZA DO, JOSE ALBERTO K V58.61 LONG-TERM (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 OF 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S 12/06/2011 CHERYL BIRMINGHAM APRN V58.61 LONG-TERM (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 OF 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S 12/06/2011 CHARLES DOYLE PA-C V58.61 LONG-TERM (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 OF 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S 12/06/2011 ARIZA DOJOSE ALBERTO K V58.61 LONG-TERM (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 OF 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S 12/06/2011 CHERYL BIRMINGHAM APRN V58.61 LONG-TERM (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 OF 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S 12/06/2011 ARIZA DO JOSE ALBERTO K V58.61 LONG-TERM (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 OF 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S 12/06/2011 ARIZA DO JOSE ALBERTO K V58.61 LONG-TERM (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 OF 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S 12/06/2011 ARIZA DO, JOSE ALBERTO K V58.61 LONG-TERM (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 OF 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S 12/06/2011 ARIZA DO, JOSE ALBERTO K V58.61 LONG-TERM (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 OF 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S 12/06/2011 ARIZA DO, JOSE ALBERTO K V58.61 LONG-TERM (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 OF 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S 12/06/2011 ARIZA DO JOSE ALBERTO K V58.61 LONG-TERM (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 OF 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S 12/06/2011 ARIZA DO JOSE ALBERTO K V58.61 LONG-TERM (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 OF 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S 12/06/2011 ARIZA DO JOSE ALBERTO K V58.61 LONG-TERM (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 OF 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S 12/06/2011 ARIZA DO JOSE ALBERTO K V58.61 LONG-TERM (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 OF 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S 12/06/2011 ARIZA DO JOSE ALBERTO K V58.61 LONG-TERM (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 OF 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S 12/06/2011 MORIS LOYOLA MD V58.61 LONG-TERM (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 OF 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S 01/02/2012 Ot 244.0 POSTSURGICAL HYPOTHYROID 01/02/2012 Ot 493.90 ASTHMA, UNSPECIFIED 01/02/2012 Ot 724.5 BACKACHE NOS 01/02/2012 Ot 780.57 UNSPECIFIED SLEEP APNEA 01/02/2012 Ot 786.59 CHEST PAIN NEC 01/02/2012 Ot 789.01 ABDOMINAL PAIN, RIGHT UPPER QUADRANT 01/02/2012 Ot 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 01/15/2012 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 01/15/2012 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 01/15/2012 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 01/15/2012 JOSE ALBERTO ARIZA DO 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 01/15/2012 ARIZA DO, JOSE ALBERTO K 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 01/15/2012 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 01/15/2012 CHARLES DOYLE PA-C 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 01/15/2012 ARIZA DO, JOSE ALBERTO K 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 01/15/2012 ARIZA DO, JOSE ALBERTO K 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 01/15/2012 ARIZA DO, JOSE ALBERTO K 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 01/15/2012 ARIZA DO, JOSE ALBERTO K 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 01/15/2012 ARIZA DO, JOSE ALBERTO K 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 01/15/2012 DONI PALAFOX APRN 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 01/15/2012 ARIZA DO, JOSE ALBERTO K 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 01/15/2012 ARIZA DO, JOSE ALBERTO K 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 01/15/2012 ARIZA DO, JOSE ALBERTO K 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 01/15/2012 CHERYL BIRMINGHAM APRN 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 01/15/2012 ADALGISA DOYLE PA-CSHUA M 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 01/15/2012 ARIZA DO, JOSE ALBERTO K 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 01/15/2012 CHERYL BIRMINGHAM APRN 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 01/15/2012 ARIZA DO, JOSE ALBERTO K 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 01/15/2012 ARIZA DO, JOSE ALBERTO K 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 01/15/2012 ARIZA DO, JOSE ALBERTO K 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 01/15/2012 ARIZA DO, JOSE ALBERTO K 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 01/15/2012 ARIZA DO, JOSE ALBERTO K 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 01/15/2012 ARIZA DO, JOSE ALBERTO K 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 01/15/2012 ARIZA DO, JOSE ALBERTO K 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 01/15/2012 ARIZA DO, JOSE ALBERTO K 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 01/15/2012 ARIZA DO, JOSE ALBERTO K 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 01/15/2012 ARIZA DO, JOSE ALBERTO K 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 01/15/2012 MILLA NAM, MORIS 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 01/17/2012 Ot 574.20 CHOLELITHIASIS NOS 01/17/2012 Ot 789.09 ABDOMINAL PAIN, OTHER SPECIFIED SITE 01/17/2012 Ot V12.51 HX-VENOUS THROMBOSIS EMBOLISM 01/17/2012 Ot V58.61 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S,LT,CURRENT USE 01/17/2012 Ot V58.69 OTH MED,LT, CURRENT USE 01/19/2012 Ot 574.20 CHOLELITHIASIS NOS 01/19/2012 Ot 789.00 ABDOMINAL PAIN, UNSPECIFIED SITE 02/04/2012 Ot 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 ATHEROSCLER NOS TYPE VESSEL, NATIV 02/04/2012 Ot 575.11 CHRONIC CHOLECYSTITIS 02/04/2012 Ot V45.81 AORTOCORONARY BYPASS 02/04/2012 Ot V58.61 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S,LT,CURRENT USE 03/18/2012 Ot 244.9 HYPOTHYROIDISM NOS 03/18/2012 Ot 272.4 HYPERLIPIDEMIA NEC/NOS 03/18/2012 Ot 278.00 OBESITY, NOS 03/18/2012 Ot 414.01 CORONARY ATHEROSCLEROSIS OF [place] CORON 03/18/2012 Ot 433.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 ARTERY OCCLUSION W O CEREBRAL IN 03/18/2012 Ot 780.57 UNSPECIFIED SLEEP APNEA 03/18/2012 Ot 786.52 PAINFUL RESPIRATION 03/18/2012 Ot 790.29 OTHER ABNORMAL GLUCOSE 03/18/2012 Ot V12.51 HX-VENOUS THROMBOSIS EMBOLISM 03/18/2012 Ot 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 03/18/2012 Ot V58.61 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S,LT,CURRENT USE 03/18/2012 Ot V85.43 BODY MASS INDEX 50.0-59.9, ADULT 03/19/2012 414.00 CAD 03/19/2012 414.00 CAD 03/19/2012 414.00 CAD 03/19/2012 ARIZA DO, JOSE ALBERTO K 414.00 CAD 03/19/2012 ARIZA DO, JOSE ALBERTO K 414.00 CAD 03/19/2012 414.00 CAD 03/19/2012 CHARLES DOYLE PA-C 414.00 CAD 03/19/2012 ARIZA DO, JOSE ALBERTO K 414.00 CAD 03/19/2012 ARIZA DO, JOSE ALBERTO K 414.00 CAD 03/19/2012 414.00 CAD 03/19/2012 414.00 CAD 03/19/2012 414.00 CAD 03/19/2012 414.00 CAD 03/19/2012 414.00 CAD 03/19/2012 414.00 CAD 03/19/2012 414.00 CAD 03/19/2012 ARIZA DO, JOSE ALBERTO K 414.00 CAD 03/19/2012 ARIZA DO, JOSE ALBERTO K 414.00 CAD 03/19/2012 ARIZA DO, JOSE ALBERTO K 414.00 CAD 03/19/2012 ARIZA DO, JOSE ALBERTO K 414.00 CAD 03/19/2012 ARIZA DO, JOSE ALBERTO K 414.00 CAD 03/19/2012 ARIZA DO, JOSE ALBERTO K 414.00 CAD 03/19/2012 ARIZA DO, JOSE ALBERTO K 414.00 CAD 03/19/2012 DONI PALAFOX APRN 414.00 CAD 03/19/2012 ARIZA DO, JOSE ALBERTO K 414.00 CAD 03/19/2012 ARIZA DO, JOSE ALBERTO K 414.00 CAD 03/19/2012 ARIZA DO, JOSE ALBERTO K 414.00 CAD 03/19/2012 CHERYL [place] APRN R 414.00 CAD 03/19/2012 CHARLES DOYLE PA-C 414.00 CAD 03/19/2012 ARIZA DO, JOSE ALBERTO K 414.00 CAD 03/19/2012 VALENCIA YORK, CHERYL R 414.00 CAD 03/19/2012 ARIZA DO, JOSE ALBERTO K 414.00 CAD 03/19/2012 ARIZA DO, JOSE ALBERTO K 414.00 CAD 03/19/2012 ARIZA DO, JOSE ALBERTO K 414.00 CAD 03/19/2012 ARIZA DO, JOSE ALBERTO K 414.00 CAD 03/19/2012 ARIZA DO, JOSE ALBERTO K 414.00 CAD 03/19/2012 ARIZA DO, JOSE ALBERTO K 414.00 CAD 03/19/2012 ARIZA DO, JOSE ALBERTO K 414.00 CAD 03/19/2012 ARIZA DO, JOSE ALBERTO K 414.00 CAD 03/19/2012 ARIZA DO, JOSE ALBERTO K 414.00 CAD 03/19/2012 ARIZA DO, JOSE ALBERTO K 414.00 CAD 04/20/2012 723.1 CERVICALGIA 04/20/2012 723.1 CERVICALGIA 04/20/2012 723.1 CERVICALGIA 04/20/2012 ARIZA DO, JOSE ALBERTO K 723.1 CERVICALGIA 04/20/2012 AIRZA DO, JOSE ALBERTO K 723.1 CERVICALGIA 04/20/2012 723.1 CERVICALGIA 04/20/2012 CHARLES DOYLE PA-C 723.1 CERVICALGIA 04/20/2012 ARIZA DO, JOSE ALBERTO K 723.1 CERVICALGIA 04/20/2012 ARIZA DO, JOSE ALBERTO K 723.1 CERVICALGIA 04/20/2012 723.1 CERVICALGIA 04/20/2012 723.1 CERVICALGIA 04/20/2012 723.1 CERVICALGIA 04/20/2012 723.1 CERVICALGIA 04/20/2012 723.1 CERVICALGIA 04/20/2012 723.1 CERVICALGIA 04/20/2012 723.1 CERVICALGIA 04/20/2012 ARIZA DO, JOSE ALBERTO K 723.1 CERVICALGIA 04/20/2012 ARIZA DO, JOSE ALBERTO K 723.1 CERVICALGIA 04/20/2012 ARIZA DO, JOSE ALBERTO K 723.1 CERVICALGIA 04/20/2012 ARIZA DO, JOSE ALBERTO K 723.1 CERVICALGIA 04/20/2012 ARIZA DO, JOSE ALBERTO K 723.1 CERVICALGIA 04/20/2012 ARIZA DO, JOSE ALBERTO K 723.1 CERVICALGIA 04/20/2012 ARIZA DO, JOSE ALBERTO K 723.1 CERVICALGIA 04/20/2012 DONI PALAFOX APRN 723.1 CERVICALGIA 04/20/2012 ARIZA DO, JOSE ALBERTO K 723.1 CERVICALGIA 04/20/2012 ARIZA DO, JOSE ALBERTO K 723.1 CERVICALGIA 04/20/2012 ARIZA DO, JOSE ALBERTO K 723.1 CERVICALGIA 04/20/2012 VALNECIA YORK, CHERYL R 723.1 CERVICALGIA 04/20/2012 CHARLES DOYLE PA-C 723.1 CERVICALGIA 04/20/2012 ARIZA DO, JOSE ALBERTO K 723.1 CERVICALGIA 04/20/2012 VALENCIA YORK, CHERYL R 723.1 CERVICALGIA 04/20/2012 ARIZA DO, JOSE ALBERTO K 723.1 CERVICALGIA 04/20/2012 ARIZA DO, JOSE ALBERTO K 723.1 CERVICALGIA 04/20/2012 ARIZA DO, JOSE ALBERTO K 723.1 CERVICALGIA 04/20/2012 ARIZA DO, JOSE ALBERTO K 723.1 CERVICALGIA 04/20/2012 ARIZA DO, JOSE ALBERTO K 723.1 CERVICALGIA 04/20/2012 ARIZA DO, JOSE ALBERTO K 723.1 CERVICALGIA 04/20/2012 ARIZA DO, JOSE ALBERTO K 723.1 CERVICALGIA 04/20/2012 ARIZA DO, JOSE ALBERTO K 723.1 CERVICALGIA 04/20/2012 ARIZA DO, JOSE ALBERTO K 723.1 CERVICALGIA 04/20/2012 ARIZA DO, JOSE ALBERTO K 723.1 CERVICALGIA 04/27/2012 ARIZA DO, JOSE ALBERTO K 244.9 UNSPECIFIED ACQUIRED HYPOTHYROIDISM 04/27/2012 244.9 UNSPECIFIED ACQUIRED HYPOTHYROIDISM 04/27/2012 CHARLES DOYLE PA-C 244.9 UNSPECIFIED ACQUIRED HYPOTHYROIDISM 04/27/2012 ARIZA DO, JOSE ALBERTO K 244.9 UNSPECIFIED ACQUIRED HYPOTHYROIDISM 04/27/2012 ARIZA DO, JOSE ALBERTO K 244.9 UNSPECIFIED ACQUIRED HYPOTHYROIDISM 04/27/2012 244.9 UNSPECIFIED ACQUIRED HYPOTHYROIDISM 04/27/2012 244.9 UNSPECIFIED ACQUIRED HYPOTHYROIDISM 04/27/2012 244.9 UNSPECIFIED ACQUIRED HYPOTHYROIDISM 04/27/2012 244.9 UNSPECIFIED ACQUIRED HYPOTHYROIDISM 04/27/2012 244.9 UNSPECIFIED ACQUIRED HYPOTHYROIDISM 04/27/2012 244.9 UNSPECIFIED ACQUIRED HYPOTHYROIDISM 04/27/2012 244.9 UNSPECIFIED ACQUIRED HYPOTHYROIDISM 04/27/2012 ARIZA DO, JOSE ALBERTO K 244.9 UNSPECIFIED ACQUIRED HYPOTHYROIDISM 04/27/2012 ARIZA DO, JOSE ALBERTO K 244.9 UNSPECIFIED ACQUIRED HYPOTHYROIDISM 04/27/2012 ARIZA DO, JOSE ALBERTO K 244.9 UNSPECIFIED ACQUIRED HYPOTHYROIDISM 04/27/2012 ARIZA DO, JOSE ALBERTO K 244.9 UNSPECIFIED ACQUIRED HYPOTHYROIDISM 04/27/2012 ARIZA DO, JOSE ALBERTO K 244.9 UNSPECIFIED ACQUIRED HYPOTHYROIDISM 04/27/2012 ARIZA DO, JOSE ALBERTO K 244.9 UNSPECIFIED ACQUIRED HYPOTHYROIDISM 04/27/2012 ARIZA DO, JOSE ALBERTO K 244.9 UNSPECIFIED ACQUIRED HYPOTHYROIDISM 04/27/2012 DONI PALAFOX APRN 244.9 UNSPECIFIED ACQUIRED HYPOTHYROIDISM 04/27/2012 ARIZA DO, JOSE ALBERTO K 244.9 UNSPECIFIED ACQUIRED HYPOTHYROIDISM 04/27/2012 ARIZA DO, JOSE ALBERTO K 244.9 UNSPECIFIED ACQUIRED HYPOTHYROIDISM 04/27/2012 ARIZA DO, JOSE ALBERTO K 244.9 UNSPECIFIED ACQUIRED HYPOTHYROIDISM 04/27/2012 JULI BIRMINGHAM APRNINA R 244.9 UNSPECIFIED ACQUIRED HYPOTHYROIDISM 04/27/2012 CHARLES DOYLE PA-C 244.9 UNSPECIFIED ACQUIRED HYPOTHYROIDISM 04/27/2012 ARIZA DO, JOSE ALBERTO K 244.9 UNSPECIFIED ACQUIRED HYPOTHYROIDISM 04/27/2012 VALENCIA YORK CHERYL R 244.9 UNSPECIFIED ACQUIRED HYPOTHYROIDISM 04/27/2012 ARIZA DO, JOSE ALBERTO K 244.9 UNSPECIFIED ACQUIRED HYPOTHYROIDISM 04/27/2012 ARIZA DO, JOSE ALBERTO K 244.9 UNSPECIFIED ACQUIRED HYPOTHYROIDISM 04/27/2012 ARIZA DO, JOSE ALBERTO K 244.9 UNSPECIFIED ACQUIRED HYPOTHYROIDISM 04/27/2012 ARIZA DO, JOSE ALBERTO K 244.9 UNSPECIFIED ACQUIRED HYPOTHYROIDISM 04/27/2012 ARIZA DO, JOSE ALBERTO K 244.9 UNSPECIFIED ACQUIRED HYPOTHYROIDISM 04/27/2012 ARIZA DO, JOSE ALBERTO K 244.9 UNSPECIFIED ACQUIRED HYPOTHYROIDISM 04/27/2012 ARIZA DO, JOSE ALBERTO K 244.9 UNSPECIFIED ACQUIRED HYPOTHYROIDISM 04/27/2012 ARIZA DO, JOSE ALBERTO K 244.9 UNSPECIFIED ACQUIRED HYPOTHYROIDISM 04/27/2012 ARIZA DO, JOSE ALBERTO K 244.9 UNSPECIFIED ACQUIRED HYPOTHYROIDISM 04/27/2012 ARIZA DO, JOSE ALBERTO K 244.9 UNSPECIFIED ACQUIRED HYPOTHYROIDISM 05/14/2012 ARIZA DO, JOSE ALBERTO K 466.0 BRONCHITIS, ACUTE 05/14/2012 ARIZA DO, JOSE ALBERTO K 466.0 BRONCHITIS, ACUTE 05/14/2012 466.0 BRONCHITIS, ACUTE 05/14/2012 CHARLES DOYLE PA-C 466.0 BRONCHITIS, ACUTE 05/14/2012 ARIZA DO, JOSE ALBERTO K 466.0 BRONCHITIS, ACUTE 05/14/2012 ARIZA DO, JOSE ALBERTO K 466.0 BRONCHITIS, ACUTE 05/14/2012 466.0 BRONCHITIS, ACUTE 05/14/2012 466.0 BRONCHITIS, ACUTE 05/14/2012 466.0 BRONCHITIS, ACUTE 05/14/2012 466.0 BRONCHITIS, ACUTE 05/14/2012 466.0 BRONCHITIS, ACUTE 05/14/2012 466.0 BRONCHITIS, ACUTE 05/14/2012 466.0 BRONCHITIS, ACUTE 05/14/2012 ARIZA DO, JOSE ALBERTO K 466.0 BRONCHITIS, ACUTE 05/14/2012 ARIZA DO, JOSE ALBERTO K 466.0 BRONCHITIS, ACUTE 05/14/2012 ARIZA DO, JOSE ALBERTO K 466.0 BRONCHITIS, ACUTE 05/14/2012 ARIZA DO, JOSE ALBERTO K 466.0 BRONCHITIS, ACUTE 05/14/2012 ARIZA DO, JOSE ALBERTO K 466.0 BRONCHITIS, ACUTE 05/14/2012 ARIZA DO, JOSE ALBERTO K 466.0 BRONCHITIS, ACUTE 05/14/2012 ARIZA DO, JOSE ALBERTO K 466.0 BRONCHITIS, ACUTE 05/14/2012 DONI PALAFOX APRN 466.0 BRONCHITIS, ACUTE 05/14/2012 ARIZA DO, JOSE ALBERTO K 466.0 BRONCHITIS, ACUTE 05/14/2012 ARIZA DO, JOSE ALBERTO K 466.0 BRONCHITIS, ACUTE 05/14/2012 ARIZA DO, JOSE ALBERTO K 466.0 BRONCHITIS, ACUTE 05/14/2012 VALENCIA YORK, CHERYL R 466.0 BRONCHITIS, ACUTE 05/14/2012 CHARLES DOYLE PA-C 466.0 BRONCHITIS, ACUTE 05/14/2012 ARIZA DO, JOSE ALBERTO K 466.0 BRONCHITIS, ACUTE 05/14/2012 VALENCIA YORK, CHERYL R 466.0 BRONCHITIS, ACUTE 05/14/2012 ARIZA DO, JOSE ALBERTO K 466.0 BRONCHITIS, ACUTE 05/14/2012 ARIZA DO, JOSE ALBERTO K 466.0 BRONCHITIS, ACUTE 05/14/2012 ARIZA DO, JOSE ALBERTO K 466.0 BRONCHITIS, ACUTE 05/14/2012 ARIZA DO, JOSE ALBERTO K 466.0 BRONCHITIS, ACUTE 05/14/2012 ARIZA DO, JOSE ALBERTO K 466.0 BRONCHITIS, ACUTE 05/14/2012 ARIZA DO, JOSE ALBERTO K 466.0 BRONCHITIS, ACUTE 05/14/2012 ARIZA DO, JOSE ALBERTO K 466.0 BRONCHITIS, ACUTE 05/14/2012 ARIZA DO, JOSE ALBERTO K 466.0 BRONCHITIS, ACUTE 05/14/2012 ARIZA DO, JOSE ALBERTO K 466.0 BRONCHITIS, ACUTE 05/14/2012 ARIZA DO, JOSE ALBERTO K 466.0 BRONCHITIS, ACUTE 05/17/2012 Ot 429.3 CARDIOMEGALY 05/17/2012 Ot 786.05 SHORTNESS OF BREATH 05/17/2012 Ot 786.50 CHEST PAIN NOS 05/17/2012 Ot V12.51 HX-VENOUS THROMBOSIS EMBOLISM 05/17/2012 Ot 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09 DYSPNEA 06/03/2012 ARIZA DO, JOSE ALBERTO K 786.09 DYSPNEA 06/03/2012 ARIZA DO, JOSE ALBERTO K 786.09 DYSPNEA 06/03/2012 ARIZA DO, JOSE ALBERTO K 786.09 DYSPNEA 06/03/2012 DONI PALAFOX APRN 786.09 DYSPNEA 06/03/2012 ARIZA DO, JOSE ALBERTO K 786.09 DYSPNEA 06/03/2012 ARIZA DO, JOSE ALBERTO K 786.09 DYSPNEA 06/03/2012 ARIZA DO, JOSE ALBERTO K 786.09 DYSPNEA 06/03/2012 CHERYL BIRMINGHAM APRN 786.09 DYSPNEA 06/03/2012 CHARLES ODYLE PA-C 786.09 DYSPNEA 06/03/2012 ARIZA DO, JOSE ALBERTO K 786.09 DYSPNEA 06/03/2012 CHERYL BIRMINGHAM APRN 786.09 DYSPNEA 06/03/2012 ARIZA DO, JOSE ALBERTO K 786.09 DYSPNEA 06/03/2012 ARIZA DO, JSOE ALBERTO K 786.09 DYSPNEA 06/03/2012 ARIZA DO, JOSE ALBERTO K 786.09 DYSPNEA 06/03/2012 ARIZA DO, JOSE ALBERTO K 786.09 DYSPNEA 06/03/2012 ARIZA DO, JOSE ALBERTO K 786.09 DYSPNEA 06/03/2012 ARIZA DO, JOSE ALBERTO K 786.09 DYSPNEA 06/03/2012 ARIZA DO, JOSE ALBERTO K 786.09 DYSPNEA 06/03/2012 ARIZA DO, JOSE ALBERTO K 786.09 DYSPNEA 06/03/2012 ARIZA DO, JOSE ALBERTO K 786.09 DYSPNEA 06/03/2012 ARIZA DO, JOSE ALBERTO K 786.09 DYSPNEA 06/10/2012 729.5 PAIN IN LIMB 06/10/2012 VIVEK DUMONT, CHARLES Santos 729.5 PAIN IN LIMB 06/10/2012 ARIZA DO, JOSE ALBERTO K 729.5 PAIN IN LIMB 06/10/2012 ARIZA DO, JOSE ALBERTO K 729.5 PAIN IN LIMB 06/10/2012 729.5 PAIN IN LIMB 06/10/2012 729.5 PAIN IN LIMB 06/10/2012 729.5 PAIN IN LIMB 06/10/2012 729.5 PAIN IN LIMB 06/10/2012 729.5 PAIN IN LIMB 06/10/2012 729.5 PAIN IN LIMB 06/10/2012 729.5 PAIN IN LIMB 06/10/2012 ARIZA DO, JOSE ALBERTO K 729.5 PAIN IN LIMB 06/10/2012 ARIZA DO, JOSE ALBERTO K 729.5 PAIN IN LIMB 06/10/2012 ARIZA DO, JOSE ALBERTO K 729.5 PAIN IN LIMB 06/10/2012 ARIZA DO, JOSE ALBERTO K 729.5 PAIN IN LIMB 06/10/2012 ARIZA DO, JOSE ALBERTO K 729.5 PAIN IN LIMB 06/10/2012 ARIZA DO, JOSE ALBERTO K 729.5 PAIN IN LIMB 06/10/2012 ARIZA DO, JOSE ALBERTO K 729.5 PAIN IN LIMB 06/10/2012 DONI PALAFOX APRN 729.5 PAIN IN LIMB 06/10/2012 ARIZA DO, JOSE ALBERTO K 729.5 PAIN IN LIMB 06/10/2012 ARIZA DO, JOSE ALBERTO K 729.5 PAIN IN LIMB 06/10/2012 ARIZA DO, JOSE ALBERTO K 729.5 PAIN IN LIMB 06/10/2012 VALENCIA YORK, CHERYL R 729.5 PAIN IN LIMB 06/10/2012 CHARLES DOYLE PA-C 729.5 PAIN IN LIMB 06/10/2012 ARIZA DO, JOSE ALBERTO K 729.5 PAIN IN LIMB 06/10/2012 JULI BIRMINGHAM APRNINA R 729.5 PAIN IN LIMB 06/10/2012 ARIZA DO, JOSE ALBERTO K 729.5 PAIN IN LIMB 06/10/2012 ARIZA DO, JOSE ALBERTO K 729.5 PAIN IN LIMB 06/10/2012 ARIZA DO, JOSE ALBERTO K 729.5 PAIN IN LIMB 06/10/2012 ARIZA DO, JOSE ALBERTO K 729.5 PAIN IN LIMB 06/10/2012 ARIZA DO, JOSE ALBERTO K 729.5 PAIN IN LIMB 06/10/2012 ARIZA DO, JOSE ALBERTO K 729.5 PAIN IN LIMB 06/10/2012 ARIZA DO, JOSE ALBERTO K 729.5 PAIN IN LIMB 06/10/2012 ARIZA DO, JOSE ALBERTO K 729.5 PAIN IN LIMB 06/10/2012 ARIZA DO, JOSE ALBERTO K 729.5 PAIN IN LIMB 06/10/2012 ARIZA DO, JOSE ALBERTO K 729.5 PAIN IN LIMB 06/20/2012 Ot 451.82 PHLEBITIS THROMBOPHLEBITIS,SUP VEINS U 06/20/2012 Ot 923.20 CONTUSION OF HAND(S) 06/20/2012 Ot 959.4 HAND INJURY NOS 06/20/2012 Ot E000.8 OTHER EXTERNAL CAUSE STATUS 06/20/2012 Ot E849.0 ACCIDENT IN HOME 06/20/2012 Ot E928.9 ACCIDENT NOS 07/13/2012 ARIZA DO, JOSE ALBERTO K 599.70 HEMATURIA 07/13/2012 ARIZA DO, JOSE ALBERTO K 780.4 dizziness 07/13/2012 ARIZA DO, JOSE ALBERTO K 788.1 pain during urination (dysuria) 07/13/2012 ARIZA DO, JOSE ALBERTO K 599.70 HEMATURIA 07/13/2012 ARIZA DO, JOSE ALBERTO K 780.4 dizziness 07/13/2012 ARIZA DO, JOSE ALBERTO K 788.1 pain during urination (dysuria) 07/13/2012 599.70 HEMATURIA 07/13/2012 780.4 dizziness 07/13/2012 788.1 pain during urination (dysuria) 07/13/2012 599.70 HEMATURIA 07/13/2012 780.4 dizziness 07/13/2012 788.1 pain during urination (dysuria) 07/13/2012 599.70 HEMATURIA 07/13/2012 780.4 dizziness 07/13/2012 788.1 pain during urination (dysuria) 07/13/2012 599.70 HEMATURIA 07/13/2012 780.4 dizziness 07/13/2012 788.1 pain during urination (dysuria) 07/13/2012 599.70 HEMATURIA 07/13/2012 780.4 DIZZINESS 07/13/2012 788.1 PAIN DURING URINATION (DYSURIA) 07/13/2012 599.70 HEMATURIA 07/13/2012 780.4 DIZZINESS 07/13/2012 788.1 PAIN DURING URINATION (DYSURIA) 07/13/2012 599.70 HEMATURIA 07/13/2012 780.4 DIZZINESS 07/13/2012 788.1 PAIN DURING URINATION (DYSURIA) 07/13/2012 ARIZA DO, JOSE ALBERTO K 599.70 HEMATURIA 07/13/2012 ARIZA DO, JOSE ALBERTO K 780.4 DIZZINESS 07/13/2012 ARIZA DO, JOSE ALBERTO K 788.1 PAIN DURING URINATION (DYSURIA) 07/13/2012 ARIZA DO, JOSE ALBERTO K 599.70 HEMATURIA 07/13/2012 ARIZA DO, JOSE ALBERTO K 780.4 DIZZINESS 07/13/2012 ARIZA DO, JOSE ALBERTO K 788.1 PAIN DURING URINATION (DYSURIA) 07/13/2012 ARIZA DO, JOSE ALBERTO K 599.70 HEMATURIA 07/13/2012 ARIZA DO, JOSE ALBERTO K 780.4 DIZZINESS 07/13/2012 ARIZA DO, JOSE ALBERTO K 788.1 PAIN DURING URINATION (DYSURIA) 07/13/2012 ARIZA DO, JOSE ALBERTO K 599.70 HEMATURIA 07/13/2012 ARIZA DO, JOSE ALBERTO K 780.4 DIZZINESS 07/13/2012 ARIZA DO, JOSE ALBERTO K 788.1 PAIN DURING URINATION (DYSURIA) 07/13/2012 ARIZA DO, JOSE ALBERTO K 599.70 HEMATURIA 07/13/2012 ARIZA DO, JOSE ALBERTO K 780.4 DIZZINESS 07/13/2012 ARIZA DO, JOSE ALBERTO K 788.1 PAIN DURING URINATION (DYSURIA) 07/13/2012 ARIZA DO, JOSE ALBERTO K 599.70 HEMATURIA 07/13/2012 ARIZA DO, JOSE ALBERTO K 780.4 DIZZINESS 07/13/2012 ARIZA DO, JOSE ALBERTO K 788.1 PAIN DURING URINATION (DYSURIA) 07/13/2012 ARIZA DO, JOSE ALBETRO K 599.70 HEMATURIA 07/13/2012 ARIZA DO, JOSE ALBERTO K 780.4 DIZZINESS 07/13/2012 ARIZA DO, JOSE ALBERTO K 788.1 PAIN DURING URINATION (DYSURIA) 07/13/2012 VIVIENNE BOAT FUELER, DONI S 599.70 HEMATURIA 07/13/2012 VIVIENNE BOAT FUELER, DONI S 780.4 DIZZINESS 07/13/2012 VIVIENNE BOAT FUELER, DONI S 788.1 PAIN DURING URINATION (DYSURIA) 07/13/2012 ARIZA DO, JOSE ALBERTO K 599.70 HEMATURIA 07/13/2012 ARIZA DO, JOSE ALBERTO K 780.4 DIZZINESS 07/13/2012 ARIZA DO, JOSE ALBERTO K 788.1 PAIN DURING URINATION (DYSURIA) 07/13/2012 ARIZA DO, JOSE ALBERTO K 599.70 HEMATURIA 07/13/2012 ARIZA DO, JOSE ALBERTO K 780.4 DIZZINESS 07/13/2012 ARIZA DO, JOSE ALBERTO K 788.1 PAIN DURING URINATION (DYSURIA) 07/13/2012 ARIZA DO, JOSE ALBERTO K 599.70 HEMATURIA 07/13/2012 ARIZA DO, JOSE ALBERTO K 780.4 DIZZINESS 07/13/2012 ARIZA DO, JOSE ALBERTO K 788.1 PAIN DURING URINATION (DYSURIA) 07/13/2012 VALENCIA BOAT FUELER CHERYL R 599.70 HEMATURIA 07/13/2012 VALENCIA BOAT FUELER, CHERYL R 780.4 DIZZINESS 07/13/2012 VALENCIA BOAT FUELER, CHERYL R 788.1 PAIN DURING URINATION (DYSURIA) 07/13/2012 CHARLES DOYLE PA-C 599.70 HEMATURIA 07/13/2012 CHARLES DOYLE PA-C 780.4 DIZZINESS 07/13/2012 CHARLES DOYLE PA-C 788.1 PAIN DURING URINATION (DYSURIA) 07/13/2012 ARIZA DO, JOSE ALBERTO K 599.70 HEMATURIA 07/13/2012 ARIZA DO, JOSE ALBERTO K 780.4 DIZZINESS 07/13/2012 ARIZA DO, JOSE ALBERTO K 788.1 PAIN DURING URINATION (DYSURIA) 07/13/2012 VALENCIA BOAT FUELER, CHERYL R 599.70 HEMATURIA 07/13/2012 VALENCIA BOAT FUELER, CHERYL R 780.4 DIZZINESS 07/13/2012 VALENCIA BOAT FUELER, CHERYL R 788.1 PAIN DURING URINATION (DYSURIA) 07/13/2012 ARIZA DO, JOSE ALBERTO K 599.70 HEMATURIA 07/13/2012 ARIZA DO, JOSE ALBERTO K 780.4 DIZZINESS 07/13/2012 ARIZA DO, JOSE ALBERTO K 788.1 PAIN DURING URINATION (DYSURIA) 07/13/2012 ARIZA DO, JOSE ALBERTO K 599.70 HEMATURIA 07/13/2012 ARIZA DO, JOSE ALBERTO K 780.4 DIZZINESS 07/13/2012 ARIZA DO, JOSE ALBERTO K 788.1 PAIN DURING URINATION (DYSURIA) 07/13/2012 ARIZA DO, JOSE ALBERTO K 599.70 HEMATURIA 07/13/2012 ARIZA DO, JOSE ALBERTO K 780.4 DIZZINESS 07/13/2012 ARIZA DO, JOSE ALBERTO K 788.1 PAIN DURING URINATION (DYSURIA) 07/13/2012 ARIZA DO, JOSE ALBERTO K 599.70 HEMATURIA 07/13/2012 ARIZA DO, JOSE ALBERTO K 780.4 DIZZINESS 07/13/2012 ARIZA DO, JOSE ALBERTO K 788.1 PAIN DURING URINATION (DYSURIA) 07/13/2012 ARIZA DO, JOSE ALBERTO K 599.70 HEMATURIA 07/13/2012 ARIZA DO, JOSE ALBERTO K 780.4 DIZZINESS 07/13/2012 ARIZA DO, JOSE ALBERTO K 788.1 PAIN DURING URINATION (DYSURIA) 07/13/2012 ARIZA DO, JOSE ALBERTO K 599.70 HEMATURIA 07/13/2012 ARIZA DO, JOSE ALBERTO K 780.4 DIZZINESS 07/13/2012 ARIZA DO, JOSE ALBERTO K 788.1 PAIN DURING URINATION (DYSURIA) 07/13/2012 ARIZA DO, JOSE ALBERTO K 599.70 HEMATURIA 07/13/2012 ARIZA DO, JOSE ALBERTO K 780.4 DIZZINESS 07/13/2012 ARIZA DO, JOSE ALBERTO K 788.1 PAIN DURING URINATION (DYSURIA) 07/13/2012 ARIZA DO, JOSE ALBERTO K 599.70 HEMATURIA 07/13/2012 ARIZA DO, JOSE ALBERTO K 780.4 DIZZINESS 07/13/2012 ARIZA DO, JOSE ALBERTO K 788.1 PAIN DURING URINATION (DYSURIA) 07/13/2012 ARIZA DO JOSE ALBERTO K 599.70 HEMATURIA 07/13/2012 ARIZA DO, JOSE ALBERTO K 780.4 DIZZINESS 07/13/2012 ARIZA DO, JOSE ALBERTO K 788.1 PAIN DURING URINATION (DYSURIA) 07/13/2012 ARIZA DO JOSE ALBERTO K 599.70 HEMATURIA 07/13/2012 ARIZA DO, JOSE ALBERTO K 780.4 DIZZINESS 07/13/2012 ARIZA DO JOSE ALBERTO K 788.1 PAIN DURING URINATION (DYSURIA) 08/09/2012 Ot 847.0 SPRAIN OF NECK 08/09/2012 Ot 847.1 SPRAIN THORACIC REGION 08/09/2012 Ot 847.2 SPRAIN LUMBAR REGION 08/09/2012 Ot 959.09 INJURY OF FACE AND NECK 08/09/2012 Ot E000.8 OTHER EXTERNAL CAUSE STATUS 08/09/2012 Ot E849.0 ACCIDENT IN HOME 08/09/2012 Ot E880.9 FALL ON STAIR/STEP NEC 08/31/2012 719.47 PAIN IN JOINT INVOLVING ANKLE AND FOOT 08/31/2012 845.00 UNSPECIFIED SITE OF ANKLE SPRAIN 08/31/2012 719.47 PAIN IN JOINT INVOLVING ANKLE AND FOOT 08/31/2012 845.00 UNSPECIFIED SITE OF ANKLE SPRAIN 08/31/2012 719.47 PAIN IN JOINT INVOLVING ANKLE AND FOOT 08/31/2012 845.00 UNSPECIFIED SITE OF ANKLE SPRAIN 08/31/2012 719.47 PAIN IN JOINT INVOLVING ANKLE AND FOOT 08/31/2012 845.00 UNSPECIFIED SITE OF ANKLE SPRAIN 08/31/2012 719.47 PAIN IN JOINT INVOLVING ANKLE AND FOOT 08/31/2012 845.00 UNSPECIFIED SITE OF ANKLE SPRAIN 08/31/2012 719.47 PAIN IN JOINT INVOLVING ANKLE AND FOOT 08/31/2012 845.00 UNSPECIFIED SITE OF ANKLE SPRAIN 08/31/2012 719.47 PAIN IN JOINT INVOLVING ANKLE AND FOOT 08/31/2012 845.00 UNSPECIFIED SITE OF ANKLE SPRAIN 08/31/2012 JOSE ALBERTO ARIZA DO 719.47 PAIN IN JOINT INVOLVING ANKLE AND FOOT 08/31/2012 CHRISTOPHER ARIZA DOA K 845.00 UNSPECIFIED SITE OF ANKLE SPRAIN 08/31/2012 ARIZA DO, JOSE ALBERTO K 719.47 PAIN IN JOINT INVOLVING ANKLE AND FOOT 08/31/2012 ARIZA DO, JOSE ALBERTO K 845.00 UNSPECIFIED SITE OF ANKLE SPRAIN 08/31/2012 ARIZA DO, JOSE ALBERTO K 719.47 PAIN IN JOINT INVOLVING ANKLE AND FOOT 08/31/2012 ARIZA DO, JOSE ALBERTO K 845.00 UNSPECIFIED SITE OF ANKLE SPRAIN 08/31/2012 ARIZA DO, JOSE ALBERTO K 719.47 PAIN IN JOINT INVOLVING ANKLE AND FOOT 08/31/2012 ARIZA DO, JOSE ALBERTO K 845.00 UNSPECIFIED SITE OF ANKLE SPRAIN 08/31/2012 ARIZA DO, JOSE ALBERTO K 719.47 PAIN IN JOINT INVOLVING ANKLE AND FOOT 08/31/2012 ARIZA DO, JOSE ALBERTO K 845.00 UNSPECIFIED SITE OF ANKLE SPRAIN 08/31/2012 ARIZA DO, JOSE ALBERTO K 719.47 PAIN IN JOINT INVOLVING ANKLE AND FOOT 08/31/2012 ARIZA DO, JOSE ALBERTO K 845.00 UNSPECIFIED SITE OF ANKLE SPRAIN 08/31/2012 ARIZA DO, JOSE ALBERTO K 719.47 PAIN IN JOINT INVOLVING ANKLE AND FOOT 08/31/2012 ARIZA DO, JOSE ALBERTO K 845.00 UNSPECIFIED SITE OF ANKLE SPRAIN 08/31/2012 DONI PALAFOX APRN S 719.47 PAIN IN JOINT INVOLVING ANKLE AND FOOT 08/31/2012 DONI PALAFOX APRN S 845.00 UNSPECIFIED SITE OF ANKLE SPRAIN 08/31/2012 ARIZA DO, JOSE ALBERTO K 719.47 PAIN IN JOINT INVOLVING ANKLE AND FOOT 08/31/2012 ARIZA DO, JOSE ALBERTO K 845.00 UNSPECIFIED SITE OF ANKLE SPRAIN 08/31/2012 ARIZA DO, JOSE ALBERTO K 719.47 PAIN IN JOINT INVOLVING ANKLE AND FOOT 08/31/2012 ARIZA DO, JOSE ALBERTO K 845.00 UNSPECIFIED SITE OF ANKLE SPRAIN 08/31/2012 ARIZA DO, JOSE ALBERTO K 719.47 PAIN IN JOINT INVOLVING ANKLE AND FOOT 08/31/2012 ARIZA DO, JOSE ALBERTO K 845.00 UNSPECIFIED SITE OF ANKLE SPRAIN 08/31/2012 CHERYL BIRMINGHAM APRN R 719.47 PAIN IN JOINT INVOLVING ANKLE AND FOOT 08/31/2012 CHERYL BIRMINGHAM APRN R 845.00 UNSPECIFIED SITE OF ANKLE SPRAIN 08/31/2012 CHARLES DOYLE PA-C 719.47 PAIN IN JOINT INVOLVING ANKLE AND FOOT 08/31/2012 CHARLES DOYLE PA-C 845.00 UNSPECIFIED SITE OF ANKLE SPRAIN 08/31/2012 ARIZA DO, JOSE ALBERTO K 719.47 PAIN IN JOINT INVOLVING ANKLE AND FOOT 08/31/2012 ARIZA DO, JOSE ALBERTO K 845.00 UNSPECIFIED SITE OF ANKLE SPRAIN 08/31/2012 VALENCIA BOAT FUELER, CHERYL R 719.47 PAIN IN JOINT INVOLVING ANKLE AND FOOT 08/31/2012 VALENCIA BOAT FUELER, CHERYL R 845.00 UNSPECIFIED SITE OF ANKLE SPRAIN 08/31/2012 ARIZA DO, JOSE ALBERTO K 719.47 PAIN IN JOINT INVOLVING ANKLE AND FOOT 08/31/2012 ARIZA DO, JOSE ALBERTO K 845.00 UNSPECIFIED SITE OF ANKLE SPRAIN 08/31/2012 ARIZA DO, JOSE ALBERTO K 719.47 PAIN IN JOINT INVOLVING ANKLE AND FOOT 08/31/2012 ARIZA DO, JOSE ALBERTO K 845.00 UNSPECIFIED SITE OF ANKLE SPRAIN 08/31/2012 ARIZA DO, JOSE ALBERTO K 719.47 PAIN IN JOINT INVOLVING ANKLE AND FOOT 08/31/2012 ARIZA DO, JOSE ALBERTO K 845.00 UNSPECIFIED SITE OF ANKLE SPRAIN 08/31/2012 ARIZA DO, JOSE ALBERTO K 719.47 PAIN IN JOINT INVOLVING ANKLE AND FOOT 08/31/2012 ARIZA DO, JOSE ALBERTO K 845.00 UNSPECIFIED SITE OF ANKLE SPRAIN 08/31/2012 ARIZA DO, JOSE ALBERTO K 719.47 PAIN IN JOINT INVOLVING ANKLE AND FOOT 08/31/2012 ARIZA DO, JOSE ALBERTO K 845.00 UNSPECIFIED SITE OF ANKLE SPRAIN 08/31/2012 ARIZA DO, JOSE ALBERTO K 719.47 PAIN IN JOINT INVOLVING ANKLE AND FOOT 08/31/2012 ARIZA DO, JOSE ALBERTO K 845.00 UNSPECIFIED SITE OF ANKLE SPRAIN 08/31/2012 ARIZA DO, JOSE ALBERTO K 719.47 PAIN IN JOINT INVOLVING ANKLE AND FOOT 08/31/2012 ARIZA DO, JOSE ALBERTO K 845.00 UNSPECIFIED SITE OF ANKLE SPRAIN 08/31/2012 ARIZA DO, JOSE ALBERTO K 719.47 PAIN IN JOINT INVOLVING ANKLE AND FOOT 08/31/2012 ARIZA DO, JOSE ALBERTO K 845.00 UNSPECIFIED SITE OF ANKLE SPRAIN 08/31/2012 ARIZA DO, JOSE ALBERTO K 719.47 PAIN IN JOINT INVOLVING ANKLE AND FOOT 08/31/2012 ARIZA DO, JOSE ALBERTO K 845.00 UNSPECIFIED SITE OF ANKLE SPRAIN 08/31/2012 JOSE ALBERTO ARIZA DO K 719.47 PAIN IN JOINT INVOLVING ANKLE AND FOOT 08/31/2012 JOSE ALBERTO ARIZA DO K 845.00 UNSPECIFIED SITE OF ANKLE SPRAIN 10/18/2012 CHARLES LOPEZ MD Ot 244.9 HYPOTHYROIDISM NOS 10/18/2012 CHARLES LOPEZ MD Ot 571.8 CHRONIC LIVER DIS NEC 10/18/2012 CHARLES LOPEZ MD Ot 786.50 CHEST PAIN NOS 10/18/2012 CHARLES LOPEZ MD Ot 786.59 CHEST PAIN NEC 10/18/2012 CHARLES LOPEZ MD Ot V12.51 HX-VENOUS THROMBOSIS EMBOLISM 10/19/2012 REAGAN MCNEILL MD Ot 244.0 POSTSURGICAL HYPOTHYROID 10/19/2012 REAGAN MCNEILL MD Ot 272.4 HYPERLIPIDEMIA NEC/NOS 10/19/2012 REAGAN MCNEILL MD Ot 278.00 OBESITY, NOS 10/19/2012 REAGAN MCNEILL MD Ot 401.9 HYPERTENSION NOS 10/19/2012 REAGAN MCNEILL MD Ot 414.01 CORONARY ATHEROSCLEROSIS OF [place] CORON 10/19/2012 REAGAN MCNEILL MD Ot 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 10/19/2012 REAGAN MCNEILL MD Ot 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 10/19/2012 REAGAN MCNEILL MD Ot 493.20 CHRONIC OBSTRUCTIVE ASTHMA, NOS 10/19/2012 REAGAN MCNEILL MD Ot 531.90 STOMACH ULCER NOS 10/19/2012 REAGAN MCNEILL MD Ot 571.8 CHRONIC LIVER DIS NEC 10/19/2012 REAGAN MCNEILL MD Ot 724.5 BACKACHE NOS 10/19/2012 REAGAN MCNEILL MD Ot 780.57 UNSPECIFIED SLEEP APNEA 10/19/2012 REAGAN MCNEILL MD Ot 789.06 ABDOMINAL PAIN, EPIGASTRIC 10/19/2012 REAGAN MCNEILL MD Ot V58.61 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S,LT,CURRENT USE 10/19/2012 REAGAN MCNEILL MD Ot V58.69 OTH MED,LT,CURRENT USE 10/19/2012 REAGAN MCNEILL MD Ot V85.44 BODY MASS INDEX 60.0-69.9, ADULT 10/21/2012 CELY VIGIL MD Ot 564.00 UNSPEC CONSTIPATION 10/21/2012 CELY VIGIL MD Ot 789.00 ABDOMINAL PAIN, UNSPECIFIED SITE 10/21/2012 CELY VIGIL MD Ot 791.9 ABN URINE FINDINGS NEC 10/21/2012 CELY VIGIL MD Ot V58.61 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S,LT,CURRENT USE 10/28/2012 531.30 GASTRIC ULCER ACUTE 10/28/2012 599.0 URINARY TRACT INFECTION 10/28/2012 V12.51 Personal History of Venous Thrombosis and Embolism 10/28/2012 531.30 GASTRIC ULCER ACUTE 10/28/2012 599.0 URINARY TRACT INFECTION 10/28/2012 V12.51 Personal History of Venous Thrombosis and Embolism 10/28/2012 531.30 GASTRIC ULCER ACUTE 10/28/2012 599.0 URINARY TRACT INFECTION 10/28/2012 V12.51 Personal History of Venous Thrombosis and Embolism 10/28/2012 531.30 GASTRIC ULCER ACUTE 10/28/2012 599.0 URINARY TRACT INFECTION 10/28/2012 V12.51 Personal History of Venous Thrombosis and Embolism 10/28/2012 ARIZA DO, JOSE ALBERTO K 531.30 GASTRIC ULCER ACUTE 10/28/2012 ARIZA DO, JOSE ALBERTO K 599.0 URINARY TRACT INFECTION 10/28/2012 ARIZA DO, JOSE ALBERTO K V12.51 Personal History of Venous Thrombosis and Embolism 10/28/2012 ARIZA DO, JOSE ALBERTO K 531.30 GASTRIC ULCER ACUTE 10/28/2012 ARIZA DO, JOSE ALBERTO K 599.0 URINARY TRACT INFECTION 10/28/2012 ARIZA DO, JOSE ALBERTO K V12.51 Personal History of Venous Thrombosis and Embolism 10/28/2012 ARIZA DO, JOSE ALBERTO K 531.30 GASTRIC ULCER ACUTE 10/28/2012 ARIZA DO, JOSE ALBERTO K 599.0 URINARY TRACT INFECTION 10/28/2012 ARIZA DO, JOSE ALBERTO K V12.51 Personal History of Venous Thrombosis and Embolism 10/28/2012 ARIZA DO, JOSE ALBERTO K 531.30 GASTRIC ULCER ACUTE 10/28/2012 ARIZA DO, JOSE ALBERTO K 599.0 URINARY TRACT INFECTION 10/28/2012 ARIZA DO JOSE ALBERTO K V12.51 Personal History of Venous Thrombosis and Embolism 10/28/2012 ARIZA DO, JOSE ALBERTO K 531.30 GASTRIC ULCER ACUTE 10/28/2012 ARIZA DO, JOSE ALBERTO K 599.0 URINARY TRACT INFECTION 10/28/2012 ARIZA DO, JOSE ALBERTO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 09/11/2015 REAGAN MCNEILL MD Ot I25.10 ATHSCL HEART DISEASE OF [place] CORONARY 09/11/2015 REAGAN MCNEILL MD Ot R55 SYNCOPE AND COLLAPSE 09/11/2015 REAGAN MCNEILL MD Ot Z01.810 ENCOUNTER FOR PREPROCEDURAL CARDIOVASCUL 09/11/2015 REAGAN MCNEILL MD Ot Z01.811 ENCOUNTER FOR PREPROCEDURAL RESPIRATORY 09/11/2015 REAGAN MCNEILL MD Ot Z01.812 ENCOUNTER FOR PREPROCEDURAL LABORATORY E 09/11/2015 REAGAN MCNEILL MD Ot Z11.2 ENCOUNTER FOR SCREENING FOR OTHER BACTER 09/13/2015 REAGAN MCNEILL MD Ot E03.9 HYPOTHYROIDISM, UNSPECIFIED 09/13/2015 REAGAN MCNEILL MD Ot E11.9 TYPE 2 DIABETES MELLITUS WITHOUT COMPLIC 09/13/2015 REAGAN MCNEILL MD Ot E66.01 MORBID (SEVERE) OBESITY DUE TO EXCESS CA 09/13/2015 REAGAN MCNEILL MD Ot E78.5 HYPERLIPIDEMIA, UNSPECIFIED 09/13/2015 REAGAN MCNEILL MD Ot I10 ESSENTIAL (PRIMARY) HYPERTENSION 09/13/2015 REAGAN MCNEILL MD Ot I25.10 ATHSCL HEART DISEASE OF [place] CORONARY 09/13/2015 REAGAN MCNEILL MD Ot J44.9 CHRONIC OBSTRUCTIVE PULMONARY DISEASE, U 09/13/2015 REAGAN MCNEILL MD Ot R55 SYNCOPE AND COLLAPSE 09/13/2015 REAGAN MCNEILL MD Ot R94.39 ABNORMAL RESULT OF OTHER CARDIOVASCULAR 09/13/2015 REAGAN MCNEILL MD Ot Z68.43 BODY MASS INDEX (BMI) 50-59.9 , ADULT 09/13/2015 REAGAN MCNEILL MD Ot Z79.01 LONGTERM (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 OF 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 09/13/2015 REAGAN MCNEILL MD Ot Z79.899 OTHER LONGTERM (CURRENT) DRUG THERAPY 09/13/2015 REAGAN MCNEILL MD Ot Z86.711 PERSONAL HISTORY OF PULMONARY EMBOLISM 10/04/2015 REAGAN MCNEILL MD Ot E03.9 HYPOTHYROIDISM, UNSPECIFIED 10/04/2015 REAGAN MCNEILL MD Ot E11.9 TYPE 2 DIABETES MELLITUS WITHOUT COMPLIC 10/04/2015 REAGAN MCNEILL MD Ot E66.01 MORBID (SEVERE) OBESITY DUE TO EXCESS CA 10/04/2015 REAGAN MCNEILL MD Ot E78.5 HYPERLIPIDEMIA, UNSPECIFIED 10/04/2015 REAGAN MCNEILL MD Ot I10 ESSENTIAL (PRIMARY) HYPERTENSION 10/04/2015 REAGAN MCNEILL MD Ot I25.10 ATHSCL HEART DISEASE OF [place] CORONARY 10/04/2015 REAGAN MCNEILL MD, Ot J44.9 CHRONIC OBSTRUCTIVE PULMONARY DISEASE, U 10/04/2015 REAGAN MCNEILL MD, Ot R55 SYNCOPE AND COLLAPSE 10/04/2015 REAGAN CMNEILL MD Ot R94.39 ABNORMAL RESULT OF OTHER CARDIOVASCULAR 10/04/2015 REAGAN MCNEILL MD Ot Z68.43 BODY MASS INDEX (BMI) 50-59.9 , ADULT 10/04/2015 REAGAN MCNEILL MD, Ot Z79.01 LONGTERM (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 OF 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 10/04/2015 REAGAN MCNEILL MD Ot Z79.899 OTHER LONGTERM (CURRENT) DRUG THERAPY 10/04/2015 REAGAN MCNEILL MD, Ot Z86.711 PERSONAL HISTORY OF PULMONARY EMBOLISM 02/15/2016 Ot 626.8 MENSTRUAL DISORDER NEC 02/15/2016 Ot V72.63 PRE- PROCEDURAL LABORATORY EXAMINATION 02/15/2016 Ot V74.8 SCREEN- BACTERIAL DIS NEC 02/15/2016 Ot 574.20 CHOLELITHIASIS NOS 02/15/2016 Ot V72.83 EXAM PRE- OPERATIVE NEC 02/15/2016 Ot V74.8 SCREEN- BACTERIAL DIS NEC 02/15/2016 Ot 723.1 CERVICALGIA 02/15/2016 Ot V45.4 ARTHRODESIS STATUS 02/15/2016 Ot 723.0 CERVICAL SPINAL STENOSIS 02/15/2016 Ot V64.3 NO PROC FOR REASONS NEC 02/15/2016 Ot 723.1 CERVICALGIA 02/15/2016 Ot 780.4 DIZZINESS AND GIDDINESS 02/15/2016 Ot 368.9 VISUAL DISTURBANCE NOS 02/15/2016 Ot 723.1 CERVICALGIA 02/15/2016 Ot 780.4 DIZZINESS AND GIDDINESS 02/15/2016 Ot V81.5 SCREEN FOR NEPHROPATHY 02/15/2016 CHARLES FREED Ot 611.71 MASTODYNIA 02/15/2016 CHARLES FREED Ot 610.3 FIBROSCLEROSIS OF BREAST 02/15/2016 ACE BAJWA MD Ot V58.61 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S,LT,CURRENT USE 02/15/2016 SUWAN MD, ACE Z Ot V58.83 ENCOUNTER FOR THERAPEUTIC DRUG MONITORIN 02/15/2016 CHARLES FREED Ot 397.0 TRICUSPID VALVE DISEASE 02/15/2016 CHARLES FREED Ot 424.0 MITRAL VALVE DISORDER 02/15/2016 CHARLES FREED Ot 786.05 SHORTNESS OF BREATH 02/15/2016 CHARLES FREED Ot V58.61 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S,LT,CURRENT USE 02/15/2016 CHARLES FREED Ot 486 PNEUMONIA, ORGANISM NOS 02/15/2016 MICHAEL WAGNER Ot 278.1 LOCALIZED ADIPOSITY 02/15/2016 MICHAEL WAGNER Ot 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 ATHEROSCLER NOS TYPE VESSEL, NATIV 02/15/2016 MICHAEL WAGNER Ot 496 CHR AIRWAY OBSTRUCT NEC 02/15/2016 MICHAEL WAGNER Ot 786.09 RESPIRATORY ABNORM NEC 02/15/2016 MICHAEL WAGNER Ot 786.50 CHEST PAIN NOS 02/15/2016 CHAS RODARTE DO Ot 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 02/15/2016 CHAS RODARTE DO Ot 625.9 FEM GENITAL SYMPTOMS NOS 02/15/2016 CHAS RODARTE DO Ot 626.8 MENSTRUAL DISORDER NEC 02/15/2016 CHAS RODARTE DO Ot 627.1 POSTMENOPAUSAL BLEEDING 02/15/2016 CHAS RODARTE DO Ot V72.84 EXAM PRE-OPERATIVE NOS 02/15/2016 CHAS RODARTE DO Ot V74.8 SCREEN-BACTERIAL DIS NEC 02/15/2016 CHAS RODARTE DO Ot 789.03 ABDOMINAL PAIN, RIGHT LOWER QUADRANT 02/15/2016 CHARLES FREED Ot 729.5 PAIN IN LIMB 02/15/2016 CATERINA SHAH DO Ot 278.1 LOCALIZED ADIPOSITY 02/15/2016 CATERINA SHAH DO Ot 493.90 ASTHMA, UNSPECIFIED 02/15/2016 CATERINA SHAH DO Ot 786.09 RESPIRATORY ABNORM NEC 02/15/2016 BALDEV LITTLEJOHN DO Ot 569.3 RECTAL ANAL HEMORRHAGE 02/15/2016 BALDEV LITTLEJOHN DO Ot V72.84 EXAM PRE-OPERATIVE NOS 02/15/2016 CHAS RODARTE DO Ot 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 02/15/2016 CAYDEN MOYA CHAS Patel Ot 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 ENDOMETRIAL HYPERPLASIA WITHOUT 02/15/2016 CAYDEN MOYA CHAS Patel Ot V25.42 IUD SURVEILLANCE 02/15/2016 CAYDEN MOYACHAS Ot R10.2 PELVIC AND PERINEAL PAIN 02/15/2016 BALDEV LITTLEJOHN DO Ot R10.2 PELVIC AND PERINEAL PAIN 02/15/2016 BALDEV LITTLEJOHN DO Ot R10.10 UPPER ABDOMINAL PAIN, UNSPECIFIED 02/15/2016 BALDEV LITTLEJOHN DO Ot Z01.818 ENCOUNTER FOR OTHER PREPROCEDURAL EXAMIN 02/15/2016 CAYDEN MOYA CHAS Amanda Ot D25.9 LEIOMYOMA OF UTERUS, UNSPECIFIED 02/15/2016 CAYDEN MOYACHAS Ot Z01.812 ENCOUNTER FOR PREPROCEDURAL LABORATORY E 02/15/2016 CAYDEN CHAS MOYA Ot Z11.2 ENCOUNTER FOR SCREENING FOR OTHER BACTER 02/15/2016 CHEN INFANTE APRN Ot J06.9 ACUTE UPPER RESPIRATORY INFECTION, UNSPE 02/15/2016 MIGDALIA JIMENEZ DO Ot 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 02/15/2016 MIGDALIA JIMENEZ DO Ot E03.9 HYPOTHYROIDISM, UNSPECIFIED 02/15/2016 MIGDALIA JIMENEZ DO Ot Z86.010 PERSONAL HISTORY OF COLONIC POLYPS 02/16/2016 SHALOM RAMÍREZ APRN Ot I25.10 ATHSCL HEART DISEASE OF [place] CORONARY 02/16/2016 SHALOM RAMÍREZ APRN Ot R07.9 CHEST PAIN, UNSPECIFIED 02/16/2016 SHALOM RAMÍREZ APRN Ot Z79.01 LONGTERM (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 OF 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 02/16/2016 SHALOM RAMÍREZ APRN Ot Z79.899 OTHER NOVELTY CANDY MAKER (CURRENT) DRUG THERAPY 02/16/2016 SHALOM RAMÍREZ APRN Ot Z86.711 PERSONAL HISTORY OF PULMONARY EMBOLISM 02/18/2016 SHALOM RAMÍREZ APRN Ot I25.10 ATHSCL HEART DISEASE OF [place] CORONARY 02/18/2016 SHALOM RAMÍREZ APRN Ot R07.9 CHEST PAIN, UNSPECIFIED 02/18/2016 SHALOM RAMÍREZ APRN Ot Z79.01 LONGTERM (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 OF 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 02/18/2016 SHALOM RAMÍREZ APRN Ot Z79.899 OTHER NOVELTY CANDY MAKER (CURRENT) DRUG THERAPY 02/18/2016 SHALOM RAMÍREZ BOAT FUELER Ot Z86.711 PERSONAL HISTORY OF PULMONARY EMBOLISM 02/22/2016 SHALOM RAMÍREZ BOAT FUELER Ot I25.10 ATHSCL HEART DISEASE OF [place] CORONARY 02/22/2016 SHALOM RAMÍREZ BOAT FUELER Ot R07.9 CHEST PAIN, UNSPECIFIED 02/22/2016 SHALOM RAMÍREZ BOAT FUELER Ot Z79.01 LONGTERM (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 OF 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 02/22/2016 SHALOM RAMÍREZ BOAT FUELER Ot Z79.899 OTHER LONGTERM (CURRENT) DRUG THERAPY 02/22/2016 SHALOM RAMÍREZ BOAT FUELER Ot Z86.711 PERSONAL HISTORY OF PULMONARY EMBOLISM 07/18/2016 KAVYA PATRICK BOAT FUELER Ot E66.01 MORBID (SEVERE) OBESITY DUE TO EXCESS CA 07/18/2016 KAVYA PATRICK BOAT FUELER Ot R10.84 GENERALIZED ABDOMINAL PAIN 07/18/2016 KAVYA PATRICK BOAT FUELER Ot Z68.43 BODY MASS INDEX (BMI) 50-59.9 , ADULT 08/07/2016 PATRICK KAVYA Murphy BOAT FUELER Ot E66.01 MORBID (SEVERE) OBESITY DUE TO EXCESS CA 08/07/2016 KAVYA PATRICK BOAT FUELER Ot R10.84 GENERALIZED ABDOMINAL PAIN 08/07/2016 KAVYA PATRICK BOAT FUELER Ot Z68.43 BODY MASS INDEX (BMI) 50-59.9 , ADULT 08/15/2016 KAVYA PATRICK BOAT FUELER Ot E66.01 MORBID (SEVERE) OBESITY DUE TO EXCESS CA 08/15/2016 KAVYA PATRICK BOAT FUELER Ot R10.84 GENERALIZED ABDOMINAL PAIN 08/15/2016 KAVYA PATRICK BOAT FUELER Ot Z68.43 BODY MASS INDEX (BMI) 50-59.9 , ADULT 09/04/2016 MIRIAM 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 Ot E66.01 MORBID (SEVERE) OBESITY DUE TO EXCESS CA 09/04/2016 MIRIAM 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 Ot I10 ESSENTIAL (PRIMARY) HYPERTENSION 09/04/2016 MIRIAM SPENCERP Ot I25.10 ATHSCL HEART DISEASE OF [place] CORONARY 09/04/2016 MIRIAM 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 Ot M17.11 UNILATERAL PRIMARY OSTEOARTHRITIS, RIGHT 09/04/2016 TJ, MIRIAM SAFETY DEPOSIT CLERK Ot 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 09/04/2016 TJMIRIAM Yusuf SAFETY DEPOSIT CLERK Ot S63.501A UNSPECIFIED SPRAIN OF RIGHT WRIST, INITI 09/04/2016 TJMIRIAM YusufP Ot S69.91XA UNSP INJURY OF RIGHT WRIST, HAND AND FIN 09/04/2016 TJMIRIAM YusufP Ot S89.91XA UNSPECIFIED INJURY OF RIGHT LOWER LEG, I 09/04/2016 TJMIRIAM YusufP Ot W05.0XXA FALL FROM NON-MOVING WHEELCHAIR, INITIAL 09/04/2016 TJMIRIAM YusufP Ot Y99.8 OTHER EXTERNAL CAUSE STATUS 09/04/2016 MIRIAM SPENCERP Ot Z79.899 OTHER NOVELTY CANDY MAKER (CURRENT) DRUG THERAPY 09/04/2016 MIRIAM SPENCER Ot Z86.718 PERSONAL HISTORY OF OTHER VENOUS THROMBO 09/30/2016 REAGAN MCNEILL MD Ot Z51.81 ENCOUNTER FOR THERAPEUTIC DRUG LEVEL MON 09/30/2016 REAGAN MCNEILL MD Ot Z79.01 NOVELTY CANDY MAKER (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 OF 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 09/30/2016 REAGAN MCNEILL MD Ot Z86.711 PERSONAL HISTORY OF PULMONARY EMBOLISM 10/14/2016 MIRIAM SPENCERP Ot E66.01 MORBID (SEVERE) OBESITY DUE TO EXCESS CA 10/14/2016 MIRIAM SPENCERP Ot I10 ESSENTIAL (PRIMARY) HYPERTENSION 10/14/2016 MIRIAM SPENCERP Ot I25.10 ATHSCL HEART DISEASE OF [place] CORONARY 10/14/2016 MIRIAM SPENCERP Ot M17.11 UNILATERAL PRIMARY OSTEOARTHRITIS, RIGHT 10/14/2016 MIRIAM SPENCERP Ot 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 10/14/2016 MIRIAM SPENCERP Ot S63.501A UNSPECIFIED SPRAIN OF RIGHT WRIST, INITI 10/14/2016 TJMIRIAM YusufP Ot S69.91XA UNSP INJURY OF RIGHT WRIST, HAND AND FIN 10/14/2016 MIRIAM SPENCERP Ot S89.91XA UNSPECIFIED INJURY OF RIGHT LOWER LEG, I 10/14/2016 TJMIRIAM YusufP Ot W05.0XXA FALL FROM NON-MOVING WHEELCHAIR, INITIAL 10/14/2016 MIRIAM SPENCERP Ot Y99.8 OTHER EXTERNAL CAUSE STATUS 10/14/2016 TJ MIRIAM LOZOYAP Ot Z79.899 OTHER LONGTERM (CURRENT) DRUG THERAPY 10/14/2016 TJMIRIAM YusufP Ot Z86.718 PERSONAL HISTORY OF OTHER VENOUS THROMBO 10/16/2016 TJMIRIAM Yusuf SAFETY DEPOSIT CLERK Ot E66.01 MORBID (SEVERE) OBESITY DUE TO EXCESS CA 10/16/2016 TJMIRIAM YusufP Ot I10 ESSENTIAL (PRIMARY) HYPERTENSION 10/16/2016 TJMIRIAM Yusuf Ot I25.10 ATHSCL HEART DISEASE OF [place] CORONARY 10/16/2016 TJMIRIAM Yusuf Ot M17.11 UNILATERAL PRIMARY OSTEOARTHRITIS, RIGHT 10/16/2016 TJMIRIAM YusufP Ot 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 10/16/2016 MIRIAM SPENCER Ot S63.501A UNSPECIFIED SPRAIN OF RIGHT WRIST, INITI 10/16/2016 TJMIRIAM Yusuf Ot S69.91XA UNSP INJURY OF RIGHT WRIST, HAND AND FIN 10/16/2016 MIRIAM SPENCER Ot S89.91XA UNSPECIFIED INJURY OF RIGHT LOWER LEG, I 10/16/2016 TJMIRIAM Yusuf Ot W05.0XXA FALL FROM NON-MOVING WHEELCHAIR, INITIAL 10/16/2016 TJMIRIAM YusufP Ot Y99.8 OTHER EXTERNAL CAUSE STATUS 10/16/2016 TJMIRIAM Yusuf SAFETY DEPOSIT CLERK Ot Z79.899 OTHER LONGTERM (CURRENT) DRUG THERAPY 10/16/2016 TJMIRIAM Yusuf SAFETY DEPOSIT CLERK Ot Z86.718 PERSONAL HISTORY OF OTHER VENOUS THROMBO 10/30/2016 REAGAN MCNEILL MD Ot Z51.81 ENCOUNTER FOR THERAPEUTIC DRUG LEVEL MON 10/30/2016 REAGAN MCNEILL MD Ot Z79.01 LONGTERM (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 OF 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 10/30/2016 REAGAN MCNEILL MD, Ot Z86.711 PERSONAL HISTORY OF PULMONARY EMBOLISM 11/06/2016 REAGAN MCNEILL MD, Ot Z51.81 ENCOUNTER FOR THERAPEUTIC DRUG LEVEL MON 11/06/2016 REAGAN MCNEILL MD, Ot Z79.01 NOVELTY CANDY MAKER (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 OF 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 11/06/2016 REAGAN MCNEILL MD Ot Z86.711 PERSONAL HISTORY OF PULMONARY EMBOLISM 12/28/2016 REAGAN MCNEILL MD, Ot Z51.81 ENCOUNTER FOR THERAPEUTIC DRUG LEVEL MON 12/28/2016 REAGAN MCNEILL MD Ot Z79.01 LONGTERM (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 OF 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 12/28/2016 REAGAN MCNEILL MD Ot Z86.711 PERSONAL HISTORY OF PULMONARY EMBOLISM 12/28/2016 BESSY MOYA NORIS Astrid Ot E03.9 HYPOTHYROIDISM, UNSPECIFIED 12/28/2016 BESSY MOYA NORIS Astrid Ot E66.01 MORBID (SEVERE) OBESITY DUE TO EXCESS CA 12/28/2016 BESSY MOYA NORIS Astrid Ot E78.00 PURE HYPERCHOLESTEROLEMIA, UNSPECIFIED 12/28/2016 BESSY NORIS K Ot G44.209 TENSION-TYPE HEADACHE, UNSPECIFIED, NOT 12/28/2016 BESSY MOYA NORIS Astrid Ot G47.30 SLEEP APNEA, UNSPECIFIED 12/28/2016 BESSY MOYA ONRIS Astrid Ot I10 ESSENTIAL (PRIMARY) HYPERTENSION 12/28/2016 BESSY MOYA NORIS Astrid Ot I25.10 ATHSCL HEART DISEASE OF [place] CORONARY 12/28/2016 BESSY DO NORIS Astrid Ot I73.9 PERIPHERAL VASCULAR DISEASE, UNSPECIFIED 12/28/2016 BESSY MOYA NORIS Astrid Ot J45.909 UNSPECIFIED ASTHMA, UNCOMPLICATED 12/28/2016 BESSY MOYA NORIS Astrid Ot K21.9 GASTRO-ESOPHAGEAL REFLUX DISEASE WITHOUT 12/28/2016 BESSY MOYA NORIS Astrid Ot M19.90 UNSPECIFIED OSTEOARTHRITIS, UNSPECIFIED 12/28/2016 BESSY MOYA NORIS Astrid Ot R51 HEADACHE 12/28/2016 BESSY MOYA NORIS Astrid Ot Z79.01 LONGTERM (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 OF 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 12/28/2016 BESSY MOYANORIS Ot Z80.0 FAMILY HISTORY OF MALIGNANT NEOPLASM OF 12/28/2016 BESSY MOYAKARENAA Astrid Ot Z82.49 FAMILY HX OF ISCHEM HEART DIS AND OTH DI 12/28/2016 BESSY DONORIS Ot Z86.718 PERSONAL HISTORY OF OTHER VENOUS THROMBO 12/28/2016 NORIS DOHERTY DO Ot Z87.19 PERSONAL HISTORY OF OTHER DISEASES OF TH 12/28/2016 BESSY NORIS MOYA Ot Z87.448 PERSONAL HISTORY OF OTHER DISEASES OF UR 12/28/2016 NORIS DOHERTY DO Ot Z90.49 ACQUIRED ABSENCE OF OTHER SPECIFIED PART 12/28/2016 NORIS DOHERTY DO Ot Z90.710 ACQUIRED ABSENCE OF BOTH CERVIX AND UTER 12/30/2016 BESSY NORIS Ot E03.9 HYPOTHYROIDISM, UNSPECIFIED 12/30/2016 BESSYNORIS Avila DO Ot E66.01 MORBID (SEVERE) OBESITY DUE TO EXCESS CA 12/30/2016 NORIS DOHERTY DO Ot E78.00 PURE HYPERCHOLESTEROLEMIA, UNSPECIFIED 12/30/2016 BESSY NORIS Ot G44.209 TENSION-TYPE HEADACHE, UNSPECIFIED, NOT 12/30/2016 BESSY NORIS Ot G47.30 SLEEP APNEA, UNSPECIFIED 12/30/2016 BESSY NORIS MOYA Ot I10 ESSENTIAL (PRIMARY) HYPERTENSION 12/30/2016 BESSY NORIS Ot I25.10 ATHSCL HEART DISEASE OF [place] CORONARY 12/30/2016 BESSY NORIS MOYA Ot I73.9 PERIPHERAL VASCULAR DISEASE, UNSPECIFIED 12/30/2016 BESSY NORIS MOYA Ot J45.909 UNSPECIFIED ASTHMA, UNCOMPLICATED 12/30/2016 NORIS DOHERTY DO Ot K21.9 GASTRO-ESOPHAGEAL REFLUX DISEASE WITHOUT 12/30/2016 BESSY NORIS Ot M19.90 UNSPECIFIED OSTEOARTHRITIS, UNSPECIFIED 12/30/2016 BESSY NORIS MOYA Ot R51 HEADACHE 12/30/2016 BESSY NORIS MOYA Ot Z79.01 LONGTERM (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 OF 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 12/30/2016 NORIS DOHERTY DO Ot Z80.0 FAMILY HISTORY OF MALIGNANT NEOPLASM OF 12/30/2016 NORIS DOHERTY DO Ot Z82.49 FAMILY HX OF ISCHEM HEART DIS AND OTH DI 12/30/2016 NORIS DOHERTY DO Ot Z86.718 PERSONAL HISTORY OF OTHER VENOUS THROMBO 12/30/2016 BESSY NORIS MOYA Ot Z87.19 PERSONAL HISTORY OF OTHER DISEASES OF TH 12/30/2016 BESSY NORIS MOYA Ot Z87.448 PERSONAL HISTORY OF OTHER DISEASES OF UR 12/30/2016 NORIS DOHERTY DO Ot Z90.49 ACQUIRED ABSENCE OF OTHER SPECIFIED PART 12/30/2016 BESSYNORIS Avila DO Ot Z90.710 ACQUIRED ABSENCE OF BOTH CERVIX AND UTER 01/03/2017 NORIS DOHERTY DO Ot E03.9 HYPOTHYROIDISM, UNSPECIFIED 01/03/2017 BESSY MOYA NORIS Resendiz Ot E66.01 MORBID (SEVERE) OBESITY DUE TO EXCESS CA 01/03/2017 BESSY MOYA NORIS Resendiz Ot E78.00 PURE HYPERCHOLESTEROLEMIA, UNSPECIFIED 01/03/2017 BESSY MOYA NORIS K Ot G44.209 TENSION-TYPE HEADACHE, UNSPECIFIED, NOT 01/03/2017 NORIS DOHERTY DO Ot G47.30 SLEEP APNEA, UNSPECIFIED 01/03/2017 BESSY MOYA NORIS Resendiz Ot I10 ESSENTIAL (PRIMARY) HYPERTENSION 01/03/2017 BESSY NORIS Resendiz Ot I25.10 ATHSCL HEART DISEASE OF [place] CORONARY 01/03/2017 BESSY MOYA NORIS Resendiz Ot I73.9 PERIPHERAL VASCULAR DISEASE, UNSPECIFIED 01/03/2017 BESSY MOYA NORIS Resendiz Ot J45.909 UNSPECIFIED ASTHMA, UNCOMPLICATED 01/03/2017 BESSY MOYA NORIS Resendiz Ot K21.9 GASTRO-ESOPHAGEAL REFLUX DISEASE WITHOUT 01/03/2017 BESSY MOYA NORIS Resendiz Ot M19.90 UNSPECIFIED OSTEOARTHRITIS, UNSPECIFIED 01/03/2017 BESSY NORIS Resendiz Ot R51 HEADACHE 01/03/2017 BESSY MOYA NORIS Resendiz Ot Z79.01 LONGTERM (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 OF 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 01/03/2017 BESSY MOYA NORIS Resendiz Ot Z80.0 FAMILY HISTORY OF MALIGNANT NEOPLASM OF 01/03/2017 BESSY MOYA NORIS Resendiz Ot Z82.49 FAMILY HX OF ISCHEM HEART DIS AND OTH DI 01/03/2017 BESSY MOYA NORIS Resendiz Ot Z86.718 PERSONAL HISTORY OF OTHER VENOUS THROMBO 01/03/2017 BESSY MOYA NORIS Resendiz Ot Z87.19 PERSONAL HISTORY OF OTHER DISEASES OF TH 01/03/2017 BESSY MOYA NORIS Resendiz Ot Z87.448 PERSONAL HISTORY OF OTHER DISEASES OF UR 01/03/2017 BESSY MOYA NORIS Resendiz Ot Z90.49 ACQUIRED ABSENCE OF OTHER SPECIFIED PART 01/03/2017 BESSY MOYA NORIS Astrid Ot Z90.710 ACQUIRED ABSENCE OF BOTH CERVIX AND UTER 01/20/2017 CHARLES LOPEZ MD Ot E03.9 HYPOTHYROIDISM, UNSPECIFIED 01/20/2017 CHARLES LOPEZ MD Ot E66.01 MORBID (SEVERE) OBESITY DUE TO EXCESS CA 01/20/2017 CHARLES LOPEZ MD, Ot E78.00 PURE HYPERCHOLESTEROLEMIA, UNSPECIFIED 01/20/2017 CHARLES LOPEZ MD Ot G47.30 SLEEP APNEA, UNSPECIFIED 01/20/2017 CHARLES LOPEZ MD Ot I10 ESSENTIAL (PRIMARY) HYPERTENSION 01/20/2017 CHARLES LOPEZ MD Ot I25.10 ATHSCL HEART DISEASE OF [place] CORONARY 01/20/2017 CHARLES LOPEZ MD Ot I73.9 PERIPHERAL VASCULAR DISEASE, UNSPECIFIED 01/20/2017 CHARLES LOPEZ MD Ot J45.909 UNSPECIFIED ASTHMA, UNCOMPLICATED 01/20/2017 CHARLES LOPEZ MD Ot K21.9 GASTRO-ESOPHAGEAL REFLUX DISEASE WITHOUT 01/20/2017 CHARLES LOPEZ MD Ot M19.90 UNSPECIFIED OSTEOARTHRITIS, UNSPECIFIED 01/20/2017 CHARLES LOPEZ MD, Ot N39.0 URINARY TRACT INFECTION, SITE NOT SPECIF 01/20/2017 CHARLES LOPEZ MD Ot R00.2 PALPITATIONS 01/20/2017 CHARLES LOPEZ MD, Ot R42 DIZZINESS AND GIDDINESS 01/20/2017 CHARLES LOPEZ MD, Ot R51 HEADACHE 01/20/2017 CHARLES LOPEZ MD, Ot Z79.01 LONGTERM (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 OF 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 01/20/2017 CHARLES LOPEZ MD Ot Z80.0 FAMILY HISTORY OF MALIGNANT NEOPLASM OF 01/20/2017 CHARLES LOPEZ MD Ot Z82.49 FAMILY HX OF ISCHEM HEART DIS AND OTH DI 01/20/2017 CHARLES LOPEZ MD, Ot Z86.718 PERSONAL HISTORY OF OTHER VENOUS THROMBO 01/20/2017 CHARLES LOPEZ MD Ot Z86.79 PERSONAL HISTORY OF OTHER DISEASES OF TH 01/20/2017 CHARLES LOPEZ MD Ot Z87.19 PERSONAL HISTORY OF OTHER DISEASES OF TH 01/20/2017 CHARLES LOPEZ MD Ot Z87.442 PERSONAL HISTORY OF URINARY CALCULI 01/20/2017 CHARLES LOPEZ MD Ot Z87.448 PERSONAL HISTORY OF OTHER DISEASES OF UR 01/20/2017 CHARLES LOPEZ MD, Ot Z90.49 ACQUIRED ABSENCE OF OTHER SPECIFIED PART 01/20/2017 CHARLES LOPEZ MD, Ot Z90.710 ACQUIRED ABSENCE OF BOTH CERVIX AND UTER 01/20/2017 CHARLES LOPEZ MD, Ot Z90.89 ACQUIRED ABSENCE OF OTHER ORGANS 01/20/2017 CHARLES LOPEZ MD Ot Z97.5 PRESENCE OF (INTRAUTERINE) CONTRACEPTIVE 01/22/2017 CHARLES LOPEZ MD, Ot E03.9 HYPOTHYROIDISM, UNSPECIFIED 01/22/2017 CHARLES LOPEZ MD, Ot E66.01 MORBID (SEVERE) OBESITY DUE TO EXCESS CA 01/22/2017 CHARLES LOPEZ MD, Ot E78.00 PURE HYPERCHOLESTEROLEMIA, UNSPECIFIED 01/22/2017 CHARLES LOPEZ MD, Ot G47.30 SLEEP APNEA, UNSPECIFIED 01/22/2017 CHARLES LOPEZ MD, Ot I10 ESSENTIAL (PRIMARY) HYPERTENSION 01/22/2017 CHARLES LOPEZ MD, Ot I25.10 ATHSCL HEART DISEASE OF [place] CORONARY 01/22/2017 CHARLES LOPEZ MD, Ot I73.9 PERIPHERAL VASCULAR DISEASE, UNSPECIFIED 01/22/2017 CHARLES LOPEZ MD, Ot J45.909 UNSPECIFIED ASTHMA, UNCOMPLICATED 01/22/2017 CHARLES LOPEZ MD, Ot K21.9 GASTRO-ESOPHAGEAL REFLUX DISEASE WITHOUT 01/22/2017 CHARLES LOPEZ MD, Ot M19.90 UNSPECIFIED OSTEOARTHRITIS, UNSPECIFIED 01/22/2017 CHARLES LOPEZ MD, Ot N39.0 URINARY TRACT INFECTION, SITE NOT SPECIF 01/22/2017 CHARLES LOPEZ MD Ot R00.2 PALPITATIONS 01/22/2017 CHARLES LOPEZ MD, Ot R42 DIZZINESS AND GIDDINESS 01/22/2017 CHARLES LOPEZ MD, Ot R51 HEADACHE 01/22/2017 CHARLES LOPEZ MD, Ot Z79.01 NOVELTY CANDY MAKER (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 OF 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 01/22/2017 CHARLES LOPEZ MD Ot Z80.0 FAMILY HISTORY OF MALIGNANT NEOPLASM OF 01/22/2017 CHARLES LOPEZ MD Ot Z82.49 FAMILY HX OF ISCHEM HEART DIS AND OTH DI 01/22/2017 CHARLES LOPEZ MD Ot Z86.718 PERSONAL HISTORY OF OTHER VENOUS THROMBO 01/22/2017 CHARLES LOPEZ MD Ot Z86.79 PERSONAL HISTORY OF OTHER DISEASES OF TH 01/22/2017 CHARLES LOPEZ MD Ot Z87.19 PERSONAL HISTORY OF OTHER DISEASES OF TH 01/22/2017 CHARLES LOPEZ MD Ot Z87.442 PERSONAL HISTORY OF URINARY CALCULI 01/22/2017 CHARLES LOPEZ MD Ot Z87.448 PERSONAL HISTORY OF OTHER DISEASES OF UR 01/22/2017 CHARLES LOPEZ MD Ot Z90.49 ACQUIRED ABSENCE OF OTHER SPECIFIED PART 01/22/2017 CHARLES LOPEZ MD Ot Z90.710 ACQUIRED ABSENCE OF BOTH CERVIX AND UTER 01/22/2017 CHARLES LOPEZ MD Ot Z90.89 ACQUIRED ABSENCE OF OTHER ORGANS 01/22/2017 CHARLES LOPEZ MD Ot Z97.5 PRESENCE OF (INTRAUTERINE) CONTRACEPTIVE 07/13/2017 PAYAL VIGIL BOAT FUELER Ot J98.11 ATELECTASIS 07/13/2017 PAYAL VIGIL BOAT FUELER Ot Z87.442 PERSONAL HISTORY OF URINARY CALCULI 07/13/2017 PAYAL VIGIL BOAT FUELER Ot J98.11 ATELECTASIS 07/13/2017 PAYAL VIGIL BOAT FUELER Ot Z87.442 PERSONAL HISTORY OF URINARY CALCULI 07/31/2017 REAGAN MCNEILL MD, Ot Z51.81 ENCOUNTER FOR THERAPEUTIC DRUG LEVEL MON 07/31/2017 REAGAN MCNEILL MD Ot Z79.01 NOVELTY CANDY MAKER (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 OF 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 07/31/2017 REAGAN MCNEILL MD Ot Z86.711 PERSONAL HISTORY OF PULMONARY EMBOLISM 07/31/2017 PAYAL VIGIL BOAT FUELER Ot J98.11 ATELECTASIS 07/31/2017 PAYAL VIGIL APRN Ot Z87.442 PERSONAL HISTORY OF URINARY CALCULI 08/06/2017 MICHAEL WAGNER Ot I10 ESSENTIAL (PRIMARY) HYPERTENSION 08/06/2017 MICHAEL WAGNER Ot I25.10 ATHSCL HEART DISEASE OF [place] CORONARY 08/06/2017 MICHAEL WAGNER Ot R06.09 OTHER FORMS OF DYSPNEA 08/06/2017 MICHAEL WAGNER Ot R07.89 OTHER CHEST PAIN 08/07/2017 REAGAN MCNEILL MD Ot Z51.81 ENCOUNTER FOR THERAPEUTIC DRUG LEVEL MON 08/07/2017 REAGAN MCNEILL MD Ot Z79.01 NOVELTY CANDY MAKER (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 OF 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 08/07/2017 REAGAN MCNEILL MD Ot Z86.711 PERSONAL HISTORY OF PULMONARY EMBOLISM 08/07/2017 PAYAL VIGIL APRN Ot J98.11 ATELECTASIS 08/07/2017 PAYAL VIGIL APRN Ot Z87.442 PERSONAL HISTORY OF URINARY CALCULI 08/19/2017 Ot 723.1 CERVICALGIA 08/19/2017 Ot V45.4 ARTHRODESIS STATUS 08/19/2017 Ot 723.0 CERVICAL SPINAL STENOSIS 08/19/2017 Ot V64.3 NO PROC FOR REASONS NEC 08/19/2017 Ot 723.1 CERVICALGIA 08/19/2017 Ot 780.4 DIZZINESS AND GIDDINESS 08/19/2017 Ot 368.9 VISUAL DISTURBANCE NOS 08/19/2017 Ot 723.1 CERVICALGIA 08/19/2017 Ot 780.4 DIZZINESS AND GIDDINESS 08/19/2017 Ot V81.5 SCREEN FOR NEPHROPATHY 08/19/2017 CHARLES FREED Ot 611.71 MASTODYNIA 08/19/2017 CHARLES FREED Ot 610.3 FIBROSCLEROSIS OF BREAST 08/19/2017 ACE BAJWA MD Z Ot V58.61 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S,LT,CURRENT USE 08/19/2017 GARETT NAM ACE Z Ot V58.83 ENCOUNTER FOR THERAPEUTIC DRUG MONITORIN 08/19/2017 CHARLES FREED Ot 397.0 TRICUSPID VALVE DISEASE 08/19/2017 CHARLES FREED Ot 424.0 MITRAL VALVE DISORDER 08/19/2017 CHARLES FREED Ot 786.05 SHORTNESS OF BREATH 08/19/2017 CHARLES FREED Ot V58.61 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S,LT,CURRENT USE 08/19/2017 CHARLES FREED Ot 486 PNEUMONIA, ORGANISM NOS 08/19/2017 MICHAEL WAGNER Ot 278.1 LOCALIZED ADIPOSITY 08/19/2017 MICHAEL WAGNER Ot 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 ATHEROSCLER NOS TYPE VESSEL, NATIV 08/19/2017 MICHAEL WAGNER Ot 496 CHR AIRWAY OBSTRUCT NEC 08/19/2017 MICHAEL WAGNER Ot 786.09 RESPIRATORY ABNORM NEC 08/19/2017 MICHAEL WAGNER Ot 786.50 CHEST PAIN NOS 08/19/2017 CHAS RODARTE DO Ot 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 08/19/2017 CHAS RODARTE DO Ot 625.9 FEM GENITAL SYMPTOMS NOS 08/19/2017 CHAS RODARTE DO Ot 626.8 MENSTRUAL DISORDER NEC 08/19/2017 CHAS RODARTE DO Ot 627.1 POSTMENOPAUSAL BLEEDING 08/19/2017 CHAS RODARTE DO Ot V72.84 EXAM PRE-OPERATIVE NOS 08/19/2017 CHAS RODARTE DO Ot V74.8 SCREEN-BACTERIAL DIS NEC 08/19/2017 CHAS RODARTE DO Ot 789.03 ABDOMINAL PAIN, RIGHT LOWER QUADRANT 08/19/2017 CHARLES FREED Ot 729.5 PAIN IN LIMB 08/19/2017 CATERINA SHAH DO Ot 278.1 LOCALIZED ADIPOSITY 08/19/2017 CATERINA SHAH DO Ot 493.90 ASTHMA, UNSPECIFIED 08/19/2017 CATERINA SHAH DO Ot 786.09 RESPIRATORY ABNORM NEC 08/19/2017 BALDEV LITTLEJOHN DO Ot 569.3 RECTAL ANAL HEMORRHAGE 08/19/2017 BALDEV LITTLEJOHN DO Ot V72.84 EXAM PRE-OPERATIVE NOS 08/19/2017 CHAS RODARTE DO S Ot 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 08/19/2017 CHAS RODARTE DO Ot 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 ENDOMETRIAL HYPERPLASIA WITHOUT 08/19/2017 CHAS RODARTE DO Ot V25.42 IUD SURVEILLANCE 08/19/2017 CHAS RODARTE DO Ot R10.2 PELVIC AND PERINEAL PAIN 08/19/2017 BALDEV LITTLEJOHN DO Ot R10.2 PELVIC AND PERINEAL PAIN 08/19/2017 LITTLEJOHNBALDEV ARMAS DO Ot R10.10 UPPER ABDOMINAL PAIN, UNSPECIFIED 08/19/2017 BALDEV LITTLEJOHN DO Ot Z01.818 ENCOUNTER FOR OTHER PREPROCEDURAL EXAMIN 08/19/2017 CHASTITYCHAS JOHNSON DO Ot D25.9 LEIOMYOMA OF UTERUS, UNSPECIFIED 08/19/2017 CHASTITYCHAS JOHNSON DO S Ot Z01.812 ENCOUNTER FOR PREPROCEDURAL LABORATORY E 08/19/2017 CHASTITYCHAS JOHNSON DO Ot Z11.2 ENCOUNTER FOR SCREENING FOR OTHER BACTER 08/19/2017 CHEN INFANTE APRN Ot J06.9 ACUTE UPPER RESPIRATORY INFECTION, UNSPE 08/19/2017 MIGDALIA JIMENEZ DO Ot 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 08/19/2017 MIGDALIA JIMENEZ DO Ot E03.9 HYPOTHYROIDISM, UNSPECIFIED 08/19/2017 MIGDALIA JIMENEZ DO Ot Z86.010 PERSONAL HISTORY OF COLONIC POLYPS 08/19/2017 PAYAL VIGIL APRN Ot M54.6 PAIN IN THORACIC SPINE 08/19/2017 KAVYA PATRICK BOAT FUELER Ot E66.01 MORBID (SEVERE) OBESITY DUE TO EXCESS CA 08/19/2017 KAVYA PATRICK BOAT FUELER Ot R10.84 GENERALIZED ABDOMINAL PAIN 08/19/2017 KAVYA PATRICK BOAT FUELER Ot Z68.43 BODY MASS INDEX (BMI) 50-59.9 , ADULT 08/19/2017 REAGAN MCNEILL MD, Ot Z51.81 ENCOUNTER FOR THERAPEUTIC DRUG LEVEL MON 08/19/2017 REAGAN MCNEILL MD, Ot Z79.01 NOVELTY CANDY MAKER (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 OF 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 08/19/2017 REAGAN MCNEILL MD, Ot Z86.711 PERSONAL HISTORY OF PULMONARY EMBOLISM 08/19/2017 PAYAL VIGIL APRN Ot M54.2 CERVICALGIA 08/19/2017 PAYAL VIGIL APRN Ot Z53.29 PROC/TRTMT NOT CRD OUT BEC PT DECISION F 08/19/2017 REAGAN MCNEILL MD, Ot Z51.81 ENCOUNTER FOR THERAPEUTIC DRUG LEVEL MON 08/19/2017 REAGAN MCNEILL MD, Ot Z79.01 NOVELTY CANDY MAKER (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 OF 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 08/19/2017 REAGAN MCNEILL MD Ot Z86.711 PERSONAL HISTORY OF PULMONARY EMBOLISM 08/19/2017 PAYAL VIGIL APRN Ot J98.11 ATELECTASIS 08/19/2017 PAYAL VIGIL APRN Ot Z87.442 PERSONAL HISTORY OF URINARY CALCULI 08/19/2017 MICHAEL WAGNER Ot I10 ESSENTIAL (PRIMARY) HYPERTENSION 08/19/2017 MICHAEL WAGNER Ot I25.10 ATHSCL HEART DISEASE OF [place] CORONARY 08/19/2017 MICHAEL WAGNER Ot R06.09 OTHER FORMS OF DYSPNEA 08/19/2017 MICHAEL WAGNER Ot R07.89 OTHER CHEST PAIN 08/19/2017 Ot 723.1 CERVICALGIA 08/19/2017 Ot V45.4 ARTHRODESIS STATUS 08/19/2017 Ot 723.0 CERVICAL SPINAL STENOSIS 08/19/2017 Ot V64.3 NO PROC FOR REASONS NEC 08/19/2017 Ot 723.1 CERVICALGIA 08/19/2017 Ot 780.4 DIZZINESS AND GIDDINESS 08/19/2017 Ot 368.9 VISUAL DISTURBANCE NOS 08/19/2017 Ot 723.1 CERVICALGIA 08/19/2017 Ot 780.4 DIZZINESS AND GIDDINESS 08/19/2017 Ot V81.5 SCREEN FOR NEPHROPATHY 08/19/2017 CHARLES FREED Ot 611.71 MASTODYNIA 08/19/2017 CHARLES FREED Ot 610.3 FIBROSCLEROSIS OF BREAST 08/19/2017 GARETT NAM, ACE Z Ot V58.61 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S,LT,CURRENT USE 08/19/2017 GARETT NAM, ACE Z Ot V58.83 ENCOUNTER FOR THERAPEUTIC DRUG MONITORIN 08/19/2017 CHARLES FREED Ot 397.0 TRICUSPID VALVE DISEASE 08/19/2017 CHARLES FREED Ot 424.0 MITRAL VALVE DISORDER 08/19/2017 CHARLES FREED Ot 786.05 SHORTNESS OF BREATH 08/19/2017 CHARLES FREED Ot V58.61 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S,LT,CURRENT USE 08/19/2017 CHARLES FREED Ot 486 PNEUMONIA, ORGANISM NOS 08/19/2017 MICHAEL WAGNER Ot 278.1 LOCALIZED ADIPOSITY 08/19/2017 MICHAEL WAGNER Ot 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 ATHEROSCLER NOS TYPE VESSEL, NATIV 08/19/2017 MICHAEL WAGENR Ot 496 CHR AIRWAY OBSTRUCT NEC 08/19/2017 MICHAEL WAGNER Ot 786.09 RESPIRATORY ABNORM NEC 08/19/2017 MICHAEL WAGNER Ot 786.50 CHEST PAIN NOS 08/19/2017 CHAS RODARTE DO Ot 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 08/19/2017 CHAS RODARTE DO S Ot 625.9 FEM GENITAL SYMPTOMS NOS 08/19/2017 CHAS RODARTE DO Ot 626.8 MENSTRUAL DISORDER NEC 08/19/2017 CHAS RODARTE DO Ot 627.1 POSTMENOPAUSAL BLEEDING 08/19/2017 CHAS RODARTE DO Ot V72.84 EXAM PRE-OPERATIVE NOS 08/19/2017 CHAS RODARTE DO Ot V74.8 SCREEN-BACTERIAL DIS NEC 08/19/2017 CHAS RODARTE DO Ot 789.03 ABDOMINAL PAIN, RIGHT LOWER QUADRANT 08/19/2017 CHARLES FREED Ot 729.5 PAIN IN LIMB 08/19/2017 CATERINA SHAH DO Ot 278.1 LOCALIZED ADIPOSITY 08/19/2017 CATERINA SHAH DO Ot 493.90 ASTHMA, UNSPECIFIED 08/19/2017 CATERINA SHAH DO Ot 786.09 RESPIRATORY ABNORM NEC 08/19/2017 BALDEV LITTLEJOHN DO Ot 569.3 RECTAL ANAL HEMORRHAGE 08/19/2017 BALDEV LITTLEJOHN DO Ot V72.84 EXAM PRE-OPERATIVE NOS 08/19/2017 CHAS RODARTE DO Ot 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 08/19/2017 CHAS RODARTE DO Ot 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 ENDOMETRIAL HYPERPLASIA WITHOUT 08/19/2017 CHAS RODARTE DO Ot V25.42 IUD SURVEILLANCE 08/19/2017 CHAS RODARTE DO Ot R10.2 PELVIC AND PERINEAL PAIN 08/19/2017 BALDEV LITTLEJOHN DO Ot R10.2 PELVIC AND PERINEAL PAIN 08/19/2017 BALDEV LITTLEJOHN DO Ot R10.10 UPPER ABDOMINAL PAIN, UNSPECIFIED 08/19/2017 BALDEV LITTLEJOHN DO Ot Z01.818 ENCOUNTER FOR OTHER PREPROCEDURAL EXAMIN 08/19/2017 CHAS RODARTE DO Ot D25.9 LEIOMYOMA OF UTERUS, UNSPECIFIED 08/19/2017 CHAS RODARTE DO Ot Z01.812 ENCOUNTER FOR PREPROCEDURAL LABORATORY E 08/19/2017 CAYDEN MOYA CHAS S Ot Z11.2 ENCOUNTER FOR SCREENING FOR OTHER BACTER 08/19/2017 NARESH CHENCARMELLA Dillon APRN Ot J06.9 ACUTE UPPER RESPIRATORY INFECTION, UNSPE 08/19/2017 MIGDALIA JIMENEZ DO Ot 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 08/19/2017 MIGDALIA JIMENEZ DO Ot E03.9 HYPOTHYROIDISM, UNSPECIFIED 08/19/2017 MIGDALIA JIMENEZ DO Ot Z86.010 PERSONAL HISTORY OF COLONIC POLYPS 08/19/2017 PAYAL VIGIL APRN Ot M54.6 PAIN IN THORACIC SPINE 08/19/2017 KAVYA PATRICK BOAT FUELER Ot E66.01 MORBID (SEVERE) OBESITY DUE TO EXCESS CA 08/19/2017 KAVYA PATRICK BOAT FUELER Ot R10.84 GENERALIZED ABDOMINAL PAIN 08/19/2017 KAVYA PATRICK BOAT FUELER Ot Z68.43 BODY MASS INDEX (BMI) 50-59.9 , ADULT 08/19/2017 REAGAN MCNEILL MD, Ot Z51.81 ENCOUNTER FOR THERAPEUTIC DRUG LEVEL MON 08/19/2017 REAGAN MCNEILL MD, Ot Z79.01 LONGTERM (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 OF 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 08/19/2017 REAGAN MCNEILL MD, Ot Z86.711 PERSONAL HISTORY OF PULMONARY EMBOLISM 08/19/2017 PAYAL VIGIL APRN Ot M54.2 CERVICALGIA 08/19/2017 PAYAL VIGIL APRN Ot Z53.29 PROC/TRTMT NOT CRD OUT BEC PT DECISION F 08/19/2017 REAGAN MCNEILL MD, Ot Z51.81 ENCOUNTER FOR THERAPEUTIC DRUG LEVEL MON 08/19/2017 REAGAN MCNEILL MD, Ot Z79.01 LONGTERM (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 OF 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 08/19/2017 REAGAN MCNEILL MD, Ot Z86.711 PERSONAL HISTORY OF PULMONARY EMBOLISM 08/19/2017 PAYAL VIGIL APRN Ot J98.11 ATELECTASIS 08/19/2017 PAYAL VIGIL APRN Ot Z87.442 PERSONAL HISTORY OF URINARY CALCULI 08/19/2017 MICHAEL WAGNER Ot I10 ESSENTIAL (PRIMARY) HYPERTENSION 08/19/2017 MICHAEL WAGNER Ot I25.10 ATHSCL HEART DISEASE OF [place] CORONARY 08/19/2017 MICHAEL WAGNER Ot R06.09 OTHER FORMS OF DYSPNEA 08/19/2017 MICHAEL WAGNER Ot R07.89 OTHER CHEST PAIN Procedures Code Description Performed By Performed On 06.4 COMPLETE THYROIDECTOMY 09/11/2009 37.22 LEFT HEART CARDIAC CATH 03/17/2012 88.53 LT HEART ANGIOCARDIOGRAM 03/17/2012 88.56 CORONAR ARTERIOGR-2 CATH 03/17/2012 01092 XRAY CERVICAL SPINE, 2 OR 3 VIEWS 04/20/2012 61560 ROUTINE VENIPUNCTURE 04/22/2012 09739 INR (IN HOUSE) 04/22/2012 96665 TSH 04/23/2012 68607 OXIMETRY 04/27/2012 00080 MEASURE BLOOD OXYGEN LEVEL 05/16/2012 78340 ROUTINE VENIPUNCTURE 06/03/2012 63353 XRAY CHEST 2 VIEW 06/03/2012 24578 BNP 06/03/2012 46135 CBC 06/03/2012 55930 INR (IN HOUSE) 06/03/2012 71833 OXIMETRY 06/03/2012 48389 XRAY FOOT LEFT COMP MIN 3 VIEWS 06/17/2012 59602 SPIROMETRY 06/29/2012 26160 BRONCHODILATION PRE/POST 06/29/2012 10761 RESPIRATORY FLOW VOLUME LOOP 06/29/2012 83295 UA W/ CULTURE IF INDICATED 07/13/[address] ABDOMEN & PELVIS STONE SEARCH 07/28/2012 84070 UA W/ CULTURE IF INDICATED 07/28/2012 85840 STONE ANALYSIS 07/29/[address] HEAD/BRAIN W/O & W/DYE 07/30/2012 31178 XRAY ANKLE R COMP MIN, 3 VIEWS 09/02/2012 35612 XRAY FOOT RIGHT 2 VIEWS 09/02/[address] ANGIO, CHEST 10/18/2012 74277 INR (IN HOUSE) 10/28/2012 89838 US GUIDE FOR BIOPSY 12/16/2012 02583 US BREAST(S) ULTRASOUND, BOTH 12/24/2012 71009 INR (IN HOUSE) 01/12/2013 90217 UA W/ CULTURE IF INDICATED 01/12/2013 72289 CULTURE URINE 01/14/2013 40935 INR (IN HOUSE) 02/10/2013 57726 ROUTINE VENIPUNCTURE 03/15/2013 60276 XRAY FOOT RIGHT 2 VIEWS 03/15/2013 11036 TSH 03/15/2013 81578 INR (IN HOUSE) 03/15/2013 87560 XRAY CHEST 2 VIEW 03/23/[address] CHEST W/DYE 03/23/2013 86237 ECHO 2D 03/23/2013 98580 OXIMETRY 03/23/2013 62711 INR (IN HOUSE) 03/29/2013 84137 INR (IN HOUSE) 05/18/2013 34377 XRAY CHEST 2 VIEW 05/19/2013 88369 OXIMETRY 05/23/2013 60641 UA W/ CULTURE IF INDICATED 06/14/2013 67549 ROUTINE VENIPUNCTURE 06/23/2013 92378 INR (IN HOUSE) 06/23/2013 98540 LIPID PANEL 06/23/2013 11840 TSH 06/23/2013 63237 MRI EXTREMITY JOINT, LOWER RIGHT, W/O CONTRAST 07/14/2013 ORTHOPJAMARCUS PONCE 07/14/2013 25462 ROUTINE VENIPUNCTURE 08/15/2013 61409 INR (IN HOUSE) 08/15/2013 27394 TSH 08/15/2013 19752 INR (IN HOUSE) 09/02/2013 70197 CULTURE URINE 12/16/2013 53112 UA W/ CULTURE IF INDICATED 12/16/2013 06510 CULTURE URINE 12/19/2013 27475 ROUTINE VENIPUNCTURE 05/26/2014 71358 INR (IN HOUSE) 05/26/2014 87254 TSH 05/26/2014 51039 CBC 05/26/2014 79678 US VENOUS DOPPLER (DVT EVAL ) 08/07/2014 Results Test Result Range Complete blood count (CBC) with automated white blood cell (WBC) differential - 02/16/16 19:10 Blood leukocytes automated count (number/volume) 9.4 10*3/uL 4.3-11.0 Blood erythrocytes automated count (number/volume) 4.30 10*6/uL 4.35-5.85 Venous blood hemoglobin measurement (mass/volume) 12.7 g/dL 11.5-16.0 Blood hematocrit (volume fraction) 40 % 35-52 Automated erythrocyte mean corpuscular volume 94 [foz_us] 80-99 Automated erythrocyte mean corpuscular hemoglobin (mass per erythrocyte) 30 pg 25-34 Automated erythrocyte mean corpuscular hemoglobin concentration measurement ( mass/volume) 32 g/dL 32-36 Automated erythrocyte distribution width ratio 15.6 % 10.0-14.5 Automated blood platelet count (count/volume) 210 10*3/uL 130-400 Automated blood platelet mean volume measurement 10.6 [foz_us] 7.4-10.4 Automated blood neutrophils/100 leukocytes 69 % 42-75 Automated blood lymphocytes/100 leukocytes 22 % 12-44 Blood monocytes/100 leukocytes 7 % 0-12 Automated blood eosinophils/100 leukocytes 1 % 0-10 Automated blood basophils/100 leukocytes 0 % 0-10 Blood neutrophils automated count (number/volume) 6.5 10*3 1.8-7.8 Blood lymphocytes automated count (number/volume) 2.1 10*3 1.0-4.0 Blood monocytes automated count (number/volume) 0.7 10*3 0.0-1.0 Automated eosinophil count 0.1 10*3/uL 0.0-0.3 Automated blood basophil count (count/volume) 0.0 10*3/uL 0.0-0.1 PT panel in platelet poor plasma by coagulation assay - 02/16/16 19:10 Prothrombin time (PT) in platelet poor plasma by coagulation assay 30.6 s 12.2-14.7 INR in platelet poor plasma or blood by coagulation assay 2.9 0.8-1.4 Activated partial thromboplastin time (aPTT) in platelet poor plasma bycoagulation assay - 02/16/16 19:10 Activated partial thromboplastin time (aPTT) in platelet poor plasma bycoagulation assay 45 s 24-35 Comprehensive metabolic panel - 02/16/16 19:10 Serum or plasma sodium measurement (moles/volume) 138 mmol/L 135-145 Serum or plasma potassium measurement (moles/volume) 3.8 mmol/L 3.6-5.0 Serum or plasma chloride measurement (moles/volume) 104 mmol/L 98-107 Carbon dioxide 19 mmol/L 21-32 Serum or plasma anion gap determination (moles/volume) 15 mmol/L 5-14 Serum or plasma urea nitrogen measurement (mass/volume) 7 mg/dL 7-18 Serum or plasma creatinine measurement (mass/volume) 0.80 mg/dL 0.60-1.30 Serum or plasma urea nitrogen/creatinine mass ratio 9 NRG Serum or plasma creatinine measurement with calculation of estimated glomerular filtration rate > NRG Serum or plasma glucose measurement (mass/volume) 190 mg/dL 70-105 Serum or plasma calcium measurement (mass/volume) 8.7 mg/dL 8.5-10.1 Serum or plasma total bilirubin measurement (mass/volume) 0.2 mg/dL 0.1-1.0 Serum or plasma alkaline phosphatase measurement (enzymatic activity/volume) 99 U/L 40-136 Serum or plasma aspartate aminotransferase measurement (enzymatic activity/ volume) 24 U/L 5-34 Serum or plasma alanine aminotransferase measurement (enzymatic activity/volume ) 27 U/L 0-55 Serum or plasma protein measurement (mass/volume) 7.3 g/dL 6.4-8.2 Serum or plasma albumin measurement (mass/volume) 3.9 g/dL 3.2-4.5 Magnesium - 02/16/16 19:10 Magnesium 2.4 mg/dL 1.8-2.4 Serum or plasma troponin i.cardiac measurement (mass/volume) - 02/16/16 19:10 Serum or plasma troponin i.cardiac measurement (mass/volume) < ng/ mL <0.30 Myoglobin, serum - 02/16/16 19:10 Myoglobin, serum 22.9 ng/mL 10.0-92.0 Serum or plasma troponin i.cardiac measurement (mass/volume) - 02/16/16 21:25 Serum or plasma troponin i.cardiac measurement (mass/volume) < ng/ mL <0.30 Thyroid Tarzan Profile - 04/01/16 09:57 TSH 2.930 uIU/mL 0.450-4.500 Complete blood count (CBC) with automated white blood cell (WBC) differential - 07/17/16 07:14 Blood leukocytes automated count (number/volume) 8.7 10*3/uL 4.3-11.0 Blood erythrocytes automated count (number/volume) 4.33 10*6/uL 4.35-5.85 Venous blood hemoglobin measurement (mass/volume) 12.9 g/dL 11.5-16.0 Blood hematocrit (volume fraction) 41 % 35-52 Automated erythrocyte mean corpuscular volume 95 [foz_us] 80-99 Automated erythrocyte mean corpuscular hemoglobin (mass per erythrocyte) 30 pg 25-34 Automated erythrocyte mean corpuscular hemoglobin concentration measurement ( mass/volume) 32 g/dL 32-36 Automated erythrocyte distribution width ratio 15.3 % 10.0-14.5 Automated blood platelet count (count/volume) 214 10*3/uL 130-400 Automated blood platelet mean volume measurement 10.8 [foz_us] 7.4-10.4 Automated blood neutrophils/100 leukocytes 65 % 42-75 Automated blood lymphocytes/100 leukocytes 26 % 12-44 Blood monocytes/100 leukocytes 7 % 0-12 Automated blood eosinophils/100 leukocytes 1 % 0-10 Automated blood basophils/100 leukocytes 0 % 0-10 Blood neutrophils automated count (number/volume) 5.6 10*3 1.8-7.8 Blood lymphocytes automated count (number/volume) 2.3 10*3 1.0-4.0 Blood monocytes automated count (number/volume) 0.6 10*3 0.0-1.0 Automated eosinophil count 0.1 10*3/uL 0.0-0.3 Automated blood basophil count (count/volume) 0.0 10*3/uL 0.0-0.1 [id number] - 07/17/16 07:14 Serum or plasma urea nitrogen measurement (mass/volume) 13 mg/dL 7-18 Serum or plasma creatinine measurement (mass/volume) 0.81 mg/dL 0.60-1.30 Serum or plasma urea nitrogen/creatinine mass ratio 16 NRG Serum or plasma creatinine measurement with calculation of estimated glomerular filtration rate > NRG Urine Culture, Routine - 08/07/16 14:36 Urine Culture, Routine Note CBC With Differential/Platelet - 10/22/16 11:16 WBC 8.6 x10E3/uL 3.4-10.8 RBC 4.22 x10E6/uL 3.77-5.28 Hemoglobin 12.4 g/dL 11.1-15.9 Hematocrit 38.4 % 34.0-46.6 MCV 91 fL 79-97 MCH 29.4 pg 26.6-33.0 MCHC 32.3 g/dL 31.5-35.7 RDW 15.0 % 12.3-15.4 Platelets 228 x10E3/uL 150-379 Neutrophils 67 % Lymphs 26 % Monocytes 6 % Eos 1 % Basos 0 % Neutrophils (Absolute) 5.8 x10E3/uL 1.4-7.0 Lymphs (Absolute) 2.3 x10E3/uL 0.7-3.1 Monocytes(Absolute) 0.5 x10E3/uL 0.1-0.9 Eos (Absolute) 0.1 x10E3/uL 0.0-0.4 Baso (Absolute) 0.0 x10E3/uL 0.0-0.2 Immature Granulocytes 0 % Immature Grans (Abs) 0.0 x10E3/uL 0.0-0.1 Comp. Metabolic Panel (14) - 10/22/16 11:16 Glucose, Serum 109 mg/dL 65-99 BUN 12 mg/dL 6-24 Creatinine, Serum 0.79 mg/dL 0.57-1.00 eGFR If NonAfricn Am 83 mL/min/1.73 >59 eGFR If Africn Am 95 mL/min/1.73 >59 BUN/Creatinine Ratio 15 9-23 Sodium, Serum 141 mmol/L 134-144 Potassium, Serum 4.4 mmol/L 3.5-5.2 Chloride, Serum 99 mmol/L 96-106 Carbon Dioxide, Total 21 mmol/L 18-29 Calcium, Serum 8.8 mg/dL 8.7-10.2 Protein, Total, Serum 7.0 g/dL 6.0-8.5 Albumin, Serum 3.7 g/dL 3.5-5.5 Globulin, Total 3.3 g/dL 1.5-4.5 A/G Ratio 1.1 1.2-2.2 Bilirubin, Total 0.2 mg/dL 0.0-1.2 Alkaline Phosphatase, S 94 IU/L 39-117 AST (SGOT) 25 IU/L 0-40 ALT (SGPT) 20 IU/L 0-32 Lipid Panel - 10/22/16 11:16 Cholesterol, Total 246 mg/dL 100-199 Triglycerides 189 mg/dL 0-149 HDL Cholesterol 36 mg/dL >39 VLDL Cholesterol Willie 38 mg/dL 5-40 LDL Cholesterol Calc 172 mg/dL 0-99 Hemoglobin A1c - 10/22/16 11:16 Hemoglobin A1c 6.8 % 4.8-5.6 Thyroid Tarzan Profile - 10/22/16 11:16 TSH 7.960 uIU/mL 0.450-4.500 Thyroxine (T4) Free, Direct, S - 10/22/16 11:16 T4,Free (Direct) 0.93 ng/dL 0.82-1.77 Thyroid Peroxidase (TPO) Ab - 10/22/16 11:16 Thyroid Peroxidase (TPO) Ab 80 IU/mL 0-34 Interpretive Comment Comment TSH - 01/05/17 16:10 TSH 7.790 uIU/mL 0.450-4.500 TSH - 01/05/17 16:10 TSH 7.790 uIU/mL 0.450-4.500 Complete blood count (CBC) with automated white blood cell (WBC) differential - 01/20/17 20:30 Blood leukocytes automated count (number/volume) 10.6 10*3/uL 4.3-11.0 Blood erythrocytes automated count (number/volume) 4.44 10*6/uL 4.35-5.85 Venous blood hemoglobin measurement (mass/volume) 13.3 g/dL 11.5-16.0 Blood hematocrit (volume fraction) 42 % 35-52 Automated erythrocyte mean corpuscular volume 95 [foz_us] 80-99 Automated erythrocyte mean corpuscular hemoglobin (mass per erythrocyte) 30 pg 25-34 Automated erythrocyte mean corpuscular hemoglobin concentration measurement ( mass/volume) 32 g/dL 32-36 Automated erythrocyte distribution width ratio 15.2 % 10.0-14.5 Automated blood platelet count (count/volume) 203 10*3/uL 130-400 Automated blood platelet mean volume measurement 10.7 [foz_us] 7.4-10.4 Automated blood neutrophils/100 leukocytes 72 % 42-75 Automated blood lymphocytes/100 leukocytes 20 % 12-44 Blood monocytes/100 leukocytes 6 % 0-12 Automated blood eosinophils/100 leukocytes 1 % 0-10 Automated blood basophils/100 leukocytes 0 % 0-10 Blood neutrophils automated count (number/volume) 7.7 10*3 1.8-7.8 Blood lymphocytes automated count (number/volume) 2.2 10*3 1.0-4.0 Blood monocytes automated count (number/volume) 0.7 10*3 0.0-1.0 Automated eosinophil count 0.1 10*3/uL 0.0-0.3 Automated blood basophil count (count/volume) 0.0 10*3/uL 0.0-0.1 PT panel in platelet poor plasma by coagulation assay - 01/20/17 20:30 Prothrombin time (PT) in platelet poor plasma by coagulation assay 22.0 s 12.2-14.7 INR in platelet poor plasma or blood by coagulation assay 1.9 0.8-1.4 Comprehensive metabolic panel - 01/20/17 20:30 Serum or plasma sodium measurement (moles/volume) 138 mmol/L 135-145 Serum or plasma potassium measurement (moles/volume) 4.0 mmol/L 3.6-5.0 Serum or plasma chloride measurement (moles/volume) 102 mmol/L 98-107 Carbon dioxide 24 mmol/L 21-32 Serum or plasma anion gap determination (moles/volume) 12 mmol/L 5-14 Serum or plasma urea nitrogen measurement (mass/volume) 9 mg/dL 7-18 Serum or plasma creatinine measurement (mass/volume) 0.85 mg/dL 0.60-1.30 Serum or plasma urea nitrogen/creatinine mass ratio 11 NRG Serum or plasma creatinine measurement with calculation of estimated glomerular filtration rate > NRG Serum or plasma glucose measurement (mass/volume) 197 mg/dL 70-105 Serum or plasma calcium measurement (mass/volume) 8.9 mg/dL 8.5-10.1 Serum or plasma total bilirubin measurement (mass/volume) 0.4 mg/dL 0.1-1.0 Serum or plasma alkaline phosphatase measurement (enzymatic activity/volume) 101 U/L 40-136 Serum or plasma aspartate aminotransferase measurement (enzymatic activity/ volume) 29 U/L 5-34 Serum or plasma alanine aminotransferase measurement (enzymatic activity/volume ) 27 U/L 0-55 Serum or plasma protein measurement (mass/volume) 7.9 g/dL 6.4-8.2 Serum or plasma albumin measurement (mass/volume) 3.8 g/dL 3.2-4.5 Magnesium - 01/20/17 20:30 Magnesium 2.2 mg/dL 1.8-2.4 Serum or plasma troponin i.cardiac measurement (mass/volume) - 01/20/17 20:30 Serum or plasma troponin i.cardiac measurement (mass/volume) < ng/ mL <0.30 THYROID STIMULATING HORMONE - 01/20/17 20:30 THYROID STIMULATING HORMONE 2.51 u[iU]/mL 0.35-4.94 Serum or plasma thyroxine (T4) free measurement (mass/volume) - 01/20/17 20:30 Serum or plasma thyroxine (T4) free measurement (mass/volume) 0.94 ng/dL 0.70-1.48 25-hydroxyvitamin D measurement - 01/20/17 20:30 25-hydroxy vitamin D measurement 6 % 30-100 Complete urinalysis with reflex to culture - 01/20/17 20:35 Urine color determination YELLOW NRG Urine clarity determination SLIGHTLY CLOUDY NRG Urine pH measurement by test strip 5 5-9 Specific gravity of urine by test strip 1.025 1.016- 1.022 Urine protein assay by test strip, semi-quantitative 1+ NEGATIVE Urine glucose detection by automated test strip NEGATIVE NEGATIVE Erythrocytes detection in urine sediment by light microscopy 3+ NEGATIVE Urine ketones detection by automated test strip 1+ NEGATIVE Urine nitrite detection by test strip NEGATIVE NEGATIVE Urine total bilirubin detection by test strip NEGATIVE NEGATIVE Urine urobilinogen measurement by automated test strip (mass/volume) 1 mg/dL NORMAL Urine leukocyte esterase detection by dipstick 2+ NEGATIVE Automated urine sediment erythrocyte count by microscopy (number/high power field) [HPF] NRG Automated urine sediment leukocyte count by microscopy (number/high power field ) [HPF] NRG Bacteria detection in urine sediment by light microscopy MODERATE NRG Squamous epithelial cells detection in urine sediment by light microscopy 5-10 NRG Crystals detection in urine sediment by light microscopy NONE NRG Casts detection in urine sediment by light microscopy NONE NRG Mucus detection in urine sediment by light microscopy SMALL NRG Complete urinalysis with reflex to culture YES NRG Bacterial urine culture - 01/20/17 20:35 URINE CULTURE RESULTS <10,000/ML NRG TSH - 03/26/17 13:09 TSH 3.60 mIU/L 0.40-4.50 CULTURE, URINE - 06/29/17 15:28 CULTURE, URINE, ROUTINE SEE NOTE NRG PT panel in platelet poor plasma by coagulation assay - 08/05/17 10:48 Prothrombin time (PT) in platelet poor plasma by coagulation assay 29.8 s 12.2-14.7 INR in platelet poor plasma or blood by coagulation assay 2.9 0.8-1.4 Automated blood complete blood count (hemogram) panel - 08/19/17 08:58 Blood leukocytes automated count (number/volume) 9.3 10*3/uL 4.3-11.0 Blood erythrocytes automated count (number/volume) 4.57 10*6/uL 4.35-5.85 Venous blood hemoglobin measurement (mass/volume) 13.4 g/dL 11.5-16.0 Blood hematocrit (volume fraction) 43 % 35-52 Automated erythrocyte mean corpuscular volume 94 [foz_us] 80-99 Automated erythrocyte mean corpuscular hemoglobin (mass per erythrocyte) 29 pg 25-34 Automated erythrocyte mean corpuscular hemoglobin concentration measurement ( mass/volume) 31 g/dL 32-36 Automated erythrocyte distribution width ratio 15.3 % 10.0-14.5 Automated blood platelet count (count/volume) 231 10*3/uL 130-400 Automated blood platelet mean volume measurement 11.0 [foz_us] 7.4-10.4 Complete urinalysis with reflex to culture - 08/19/17 08:58 Urine color determination YELLOW NRG Urine clarity determination CLEAR NRG Urine pH measurement by test strip 5 5-9 Specific gravity of urine by test strip 1.025 1.016- 1.022 Urine protein assay by test strip, semi-quantitative 1+ NEGATIVE Urine glucose detection by automated test strip NEGATIVE NEGATIVE Erythrocytes detection in urine sediment by light microscopy 1+ NEGATIVE Urine ketones detection by automated test strip NEGATIVE NEGATIVE Urine nitrite detection by test strip NEGATIVE NEGATIVE Urine total bilirubin detection by test strip NEGATIVE NEGATIVE Urine urobilinogen measurement by automated test strip (mass/volume) NORMAL NORMAL Urine leukocyte esterase detection by dipstick 2+ NEGATIVE Automated urine sediment erythrocyte count by microscopy (number/high power field) RARE NRG Automated urine sediment leukocyte count by microscopy (number/high power field ) [HPF] NRG Bacteria detection in urine sediment by light microscopy MODERATE NRG Squamous epithelial cells detection in urine sediment by light microscopy 5-10 NRG Crystals detection in urine sediment by light microscopy NONE NRG Casts detection in urine sediment by light microscopy NONE NRG Mucus detection in urine sediment by light microscopy NEGATIVE NRG Complete urinalysis with reflex to culture YES NRG PT panel in platelet poor plasma by coagulation assay - 08/19/17 08:58 Prothrombin time (PT) in platelet poor plasma by coagulation assay 16.0 s 12.2-14.7 INR in platelet poor plasma or blood by coagulation assay 1.3 0.8-1.4 Activated partial thromboplastin time (aPTT) in platelet poor plasma bycoagulation assay - 08/19/17 08:58 Activated partial thromboplastin time (aPTT) in platelet poor plasma bycoagulation assay 29 s 24-35 Comprehensive metabolic panel - 08/19/17 08:58 Serum or plasma sodium measurement (moles/volume) 140 mmol/L 135-145 Serum or plasma potassium measurement (moles/volume) 3.9 mmol/L 3.6-5.0 Serum or plasma chloride measurement (moles/volume) 104 mmol/L 98-107 Carbon dioxide 24 mmol/L 21-32 Serum or plasma anion gap determination (moles/volume) 12 mmol/L 5-14 Serum or plasma urea nitrogen measurement (mass/volume) 12 mg/dL 7-18 Serum or plasma creatinine measurement (mass/volume) 0.86 mg/dL 0.60-1.30 Serum or plasma urea nitrogen/creatinine mass ratio 14 NRG Serum or plasma creatinine measurement with calculation of estimated glomerular filtration rate > NRG Serum or plasma glucose measurement (mass/volume) 121 mg/dL 70-105 Serum or plasma calcium measurement (mass/volume) 9.5 mg/dL 8.5-10.1 Serum or plasma total bilirubin measurement (mass/volume) 0.6 mg/dL 0.1-1.0 Serum or plasma alkaline phosphatase measurement (enzymatic activity/volume) 99 U/L 40-136 Serum or plasma aspartate aminotransferase measurement (enzymatic activity/ volume) 21 U/L 5-34 Serum or plasma alanine aminotransferase measurement (enzymatic activity/volume ) 22 U/L 0-55 Serum or plasma protein measurement (mass/volume) 8.1 g/dL 6.4-8.2 Serum or plasma albumin measurement (mass/volume) 4.1 g/dL 3.2-4.5 Lipid 1996 panel - 08/19/17 08:58 Serum or plasma triglyceride measurement (mass/volume) 216 mg/dL <150 Serum or plasma cholesterol measurement (mass/volume) 249 mg/dL < 200 Serum or plasma cholesterol in HDL measurement (mass/volume) 38 mg/ dL 40-60 Cholesterol in LDL [mass/volume] in serum or plasma by direct assay 176 mg/dL 1-129 Serum or plasma cholesterol in VLDL measurement (mass/volume) 43 mg/ dL 5-40 Complete blood count (CBC) with automated white blood cell (WBC) differential - 08/20/17 04:25 Blood leukocytes automated count (number/volume) 9.4 10*3/uL 4.3-11.0 Blood erythrocytes automated count (number/volume) 3.76 10*6/uL 4.35-5.85 Venous blood hemoglobin measurement (mass/volume) 11.3 g/dL 11.5-16.0 Blood hematocrit (volume fraction) 36 % 35-52 Automated erythrocyte mean corpuscular volume 96 [foz_us] 80-99 Automated erythrocyte mean corpuscular hemoglobin (mass per erythrocyte) 30 pg 25-34 Automated erythrocyte mean corpuscular hemoglobin concentration measurement ( mass/volume) 32 g/dL 32-36 Automated erythrocyte distribution width ratio 15.3 % 10.0-14.5 Automated blood platelet count (count/volume) 190 10*3/uL 130-400 Automated blood platelet mean volume measurement 10.4 [foz_us] 7.4-10.4 Automated blood neutrophils/100 leukocytes 70 % 42-75 Automated blood lymphocytes/100 leukocytes 18 % 12-44 Blood monocytes/100 leukocytes 10 % 0-12 Automated blood eosinophils/100 leukocytes 2 % 0-10 Automated blood basophils/100 leukocytes 0 % 0-10 Blood neutrophils automated count (number/volume) 6.5 10*3 1.8-7.8 Blood lymphocytes automated count (number/volume) 1.7 10*3 1.0-4.0 Blood monocytes automated count (number/volume) 0.9 10*3 0.0-1.0 Automated eosinophil count 0.2 10*3/uL 0.0-0.3 Automated blood basophil count (count/volume) 0.0 10*3/uL 0.0-0.1 Whole blood basic metabolic panel - 08/20/17 04:25 Serum or plasma sodium measurement (moles/volume) 138 mmol/L 135-145 Serum or plasma potassium measurement (moles/volume) 3.9 mmol/L 3.6-5.0 Serum or plasma chloride measurement (moles/volume) 101 mmol/L 98-107 Carbon dioxide 27 mmol/L 21-32 Serum or plasma anion gap determination (moles/volume) 10 mmol/L 5-14 Serum or plasma urea nitrogen measurement (mass/volume) 12 mg/dL 7-18 Serum or plasma creatinine measurement (mass/volume) 0.82 mg/dL 0.60-1.30 Serum or plasma urea nitrogen/creatinine mass ratio 15 NRG Serum or plasma creatinine measurement with calculation of estimated glomerular filtration rate > NRG Serum or plasma glucose measurement (mass/volume) 116 mg/dL 70-105 Serum or plasma calcium measurement (mass/volume) 8.6 mg/dL 8.5-10.1 Serum or plasma phosphate measurement (mass/volume) - 08/20/17 04:25 Serum or plasma phosphate measurement (mass/volume) 4.1 mg/dL 2.3-4.7 Magnesium - 08/20/17 04:25 Magnesium 2.0 mg/dL 1.8-2.4 Encounters ACCT No. Visit Date/Time Discharge Status Pt. Type Provider Facility Loc./Unit Complaint [id number] 08/07/2014 09:51:00 08/07/2014 23:59:59 CLS Outpatient ARIZA DO JOSE ALBERTO Astrid [id number] 05/26/2014 11:37:00 05/26/2014 23:59:59 CLS Outpatient ARIZA DO JOSE ALBERTO Astrid [id number] 01/16/2014 11:28:00 01/16/2014 23:59:59 CLS Outpatient ARIZA DOJOSE ALBERTO Astrid [id number] 12/26/2013 12:31:00 12/26/2013 23:59:59 CLS Outpatient ARIZA DO JOSE ALBERTO Astrid [id number] 12/19/2013 13:24:00 12/19/2013 23:59:59 CLS Outpatient ARIZA DO JOSE ALBERTO K [id number] 12/16/2013 13:58:00 12/16/2013 23:59:59 CLS Outpatient ARIZA DO JOSE ALBERTO Astrid [id number] 12/16/2013 13:58:00 12/16/2013 23:59:59 CLS Outpatient ARIZA DOJOSE ALBERTO [id number] 10/07/2013 14:22:00 10/07/2013 23:59:59 CLS Outpatient ARIZA DO JOSE ALBERTO K [id number] 09/02/2013 10:22:00 09/02/2013 23:59:59 CLS Outpatient ARIZA DO JOSE ALBERTO K [id number] 08/15/2013 14:48:00 08/15/2013 23:59:59 CLS Outpatient ARIZA DOJOSE ALBERTO Astrid [id number] 07/14/2013 14:39:00 07/14/2013 23:59:59 CLS Outpatient CHERYL BIRMINGHAM APRN Torri [id number] 07/08/2013 08:55:00 07/08/2013 23:59:59 CLS Outpatient ARIZA DOJOSE ALBERTO [id number] 06/23/2013 09:13:00 06/23/2013 23:59:59 CLS Outpatient VIEVK DUMONT CHARLES M [id number] 06/14/2013 15:59:00 06/14/2013 23:59:59 CLS Outpatient CHERYL BIRMINGHAM APRN Torri [id number] 05/30/2013 12:08:00 05/30/2013 23:59:59 CLS Outpatient ARIZA DOJOSE ALBERTO Astrid [id number] 05/23/2013 10:34:00 05/23/2013 23:59:59 CLS Outpatient ARIZA DOJOSE ALBERTO Astrid [id number] 05/23/2013 10:34:00 05/23/2013 23:59:59 CLS Outpatient ARIZA DOJOSE ALBERTO Astrid [id number] 05/18/2013 17:42:00 05/18/2013 23:59:59 CLS Outpatient DONI PALAFOX APRN [id number] 04/18/2013 11:55:00 04/18/2013 23:59:59 CLS Outpatient ARIZA DOJOSE ALBERTO Astrid [id number] 03/29/2013 11:13:00 03/29/2013 23:59:59 CLS Outpatient ARIZA DOJOSE ALBERTO Astrid [id number] 03/22/2013 09:39:00 03/22/2013 23:59:59 CLS Outpatient RAIZA DOJOSE ALBERTO Astrid [id number] 03/22/2013 09:39:00 03/22/2013 23:59:59 CLS Outpatient ARIZA DOCHRISTOPHERSantana Resendiz [id number] 03/15/2013 09:00:00 03/15/2013 23:59:59 CLS Outpatient ARIZA DO JOSE ALBERTO Resendiz [id number] 03/15/2013 09:00:00 03/15/2013 23:59:59 CLS Outpatient ARIZA DOCHRISTOPHERSantana Resendiz [id number] 02/10/2013 08:00:00 02/10/2013 23:59:59 CLS Outpatient ARIZA DO JOSE ALBERTO Resendiz [id number] 07/28/2012 14:05:00 07/28/2012 23:59:59 CLS Outpatient ARIZA DO, JOSE ALBERTO K [id number] 07/13/2012 10:49:00 07/13/2012 23:59:59 CLS Outpatient JOSE ALBERTO ARIZA DO [id number] 06/29/2012 07:51:00 06/29/2012 23:59:59 CLS Outpatient CHARLES DOYLE PA-C [id number] 06/10/2012 10:44:00 06/10/2012 23:59:59 CLS Outpatient [id number] 06/03/2012 09:27:00 06/03/2012 23:59:59 CLS Outpatient JOSE ALBERTO ARIZA DO [id number] 05/14/2012 15:57:00 05/14/2012 23:59:59 CLS Outpatient JOSE ALBERTO ARIZA DO [id number] 04/27/2012 08:04:00 04/27/2012 23:59:59 CLS Outpatient [id number] 04/22/2012 09:50:00 04/22/2012 23:59:59 CLS Outpatient [id number] 04/20/2012 16:19:00 04/20/2012 23:59:59 CLS Outpatient [id number] 02/05/2012 08:28:00 02/05/2012 23:59:59 CLS Outpatient MORIS LOYOLA MD [id number] 01/12/2013 09:13:00 Document Registration [id number] 12/16/2012 09:21:00 Document Registration [id number] 12/16/2012 09:21:00 Document Registration [id number] 10/28/2012 12:34:00 Document Registration [id number] 09/10/2012 16:36:00 Document Registration [id number] 08/31/2012 10:19:00 Document Registration [id number] 08/31/2012 10:19:00 Document Registration [id number] 10/23/2016 15:09:00 Document Registration [id number] 08/05/2017 10:47:00 08/05/2017 23:59:59 CLS Outpatient REAGAN MCNEILL MD [facility] LAB Z51.81 Z86.711 [id number] 08/05/2017 10:36:00 08/05/2017 23:59:59 CLS Outpatient MICHAEL WAGNER [facility] CARD I25.10 CAD [id number] 07/13/2017 14:45:00 07/13/2017 23:59:59 CLS Preadmit MICHAEL WAGNER [facility] CARD I25.10 CAD [id number] 07/10/2017 12:47:00 07/10/2017 23:59:59 CLS Outpatient PAYAL VIGIL BOAT FUELER [facility] RAD N20.0 RENAL STONES [id number] 02/05/2017 12:52:00 02/05/2017 23:59:59 CLS Outpatient PAYAL VIGIL BOAT FUELER [facility] RAD M54.2 [id number] 01/20/2017 18:36:00 01/20/2017 23:32:00 DIS Emergency CHARLES LOPEZ MD [facility] ER SOB,DIZZINESS,NAUSEA [id number] 12/29/2016 00:14:00 12/29/2016 23:59:59 CLS Preadmit REAGAN MCNEILL MD [facility] LAB Z86.711 [id number] 12/28/2016 13:45:00 12/28/2016 15:30:00 DIS Emergency NORIS DOHERTY DO K [facility] ER HEADACHE [id number] 09/29/2016 14:31:00 12/28/2016 00:01:00 DIS Outpatient REAGAN MCNEILL MD [facility] LAB Z86.711 [id number] 09/04/2016 13:36:00 09/04/2016 16:13:00 DIS Emergency 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 [facility] ER FALL/ RIGHT KNEE INJ [id number] 07/17/2016 06:58:00 07/17/2016 23:59:59 CLS Outpatient KAVYA PATRICK BOAT FUELER [facility] RAD GENERALIZED ABD PAIN [id number] 02/16/2016 19:06:00 02/16/2016 22:12:00 DIS Emergency SHALOM RAMÍREZ BOAT FUELER [facility] ER CHEST PAIN [id number] 02/15/2016 12:58:00 02/15/2016 23:59:59 CLS Outpatient PAYAL VIGIL BOAT FUELER [facility] RAD ACUTE RT SIDED THORACIC PAIN [id number] 09/05/2015 07:05:00 09/06/2015 09:30:00 DIS Outpatient REAGAN MCNEILL MD [facility] CATH CAD,HTN HLP SYNCOPE [id number] 09/04/2015 14:08:00 09/04/2015 16:10:00 DIS Emergency SHALOM RAMÍREZ BOAT FUELER [facility] ER CHEST PAIN [id number] 06/21/2015 15:25:00 06/21/2015 19:18:00 DIS Emergency MICHELE COTTON [facility] ER SOA [id number] 05/23/2015 15:54:00 05/23/2015 23:59:59 CLS Outpatient MIGDALIA JIMENEZ DO [facility] LAB HYPOTHYROIDISM, DISORDER OF THE DIGESTIVE SYSTEM [id number] 05/14/2015 21:53:00 05/15/2015 00:14:00 DIS Emergency NORIS DOHERTY DO [facility] ER POST SURGICAL PAIN [id number] 04/21/2015 12:17:00 04/21/2015 15:18:00 DIS Emergency JESSICA NAM, CHARLES Shannon [facility] ER POST OP/BLOODY DRAINAGE [id number] 04/19/2015 06:00:00 04/20/2015 19:00:00 DIS Outpatient CHAS RODARTE DO S [facility] SDC CRONIC PELVIC PAIN [id number] 04/18/2015 10:51:00 04/18/2015 15:10:00 DIS Outpatient BALDEV LITTLEJOHN DO [facility] SDC ABDOMINAL PAIN [id number] 04/14/2015 10:47:00 04/14/2015 12:53:00 DIS Emergency RAJWINDER NAM, DEWEY Patel [facility] ER L LEG PAIN/WEAKNESS [id number] 04/12/2015 13:39:00 04/12/2015 23:59:59 CLS Outpatient CHEN INFANTE BOAT FUELER [facility] LAB ACUTE UPPER RESPIRATORY INFECTION [id number] 04/12/2015 13:34:00 04/12/2015 23:59:59 CLS Outpatient CHAS RODARTE DO [facility] PREOP CRONIC PELVIC PAIN [id number] 04/12/2015 13:20:00 04/12/2015 23:59:59 CLS Outpatient BALDEV LITTLEJOHN DO [facility] PREOP ABD. PAIN [id number] 03/21/2015 14:46:00 03/21/2015 23:59:59 CLS Outpatient CHAS RODARTE DO [facility] RAD PELVIC PAIN [id number] 03/21/2015 10:49:00 03/21/2015 23:59:59 CLS Outpatient BALDEV LITTLEJOHN DO [facility] RAD SUPRAPUBIC ABD PAIN [id number] 01/17/2015 10:59:00 01/17/2015 23:59:59 CLS Outpatient CHAS RODARTE DO [facility] RAD IUD NOT FOUND ON SONO [id number] 01/12/2015 10:03:00 01/12/2015 12:10:00 DIS Emergency CELY VIGIL MD [facility] ER POSS BLOOD CLOT IN LUNG [id number] 01/08/2015 15:12:00 01/08/2015 23:59:59 CLS Outpatient CHAS RODARTE DO [facility] RAD FIBROID UTERUS [id number] 01/05/2015 15:46:00 01/05/2015 17:46:00 DIS Emergency SHLAOM RAMÍREZ APRN [facility] ER POST COLONOSCOPY [id number] 01/02/2015 13:01:00 01/02/2015 15:55:00 DIS Outpatient BALDEV LITTLEJOHN DO [facility] SDC RECTAL BLEEDING [id number] 12/28/2014 05:53:00 12/28/2014 23:59:59 CLS Outpatient BALDEV LITTLEJOHN DO [facility] PREOP RECTAL BLEEDING [id number] 11/08/2014 14:02:00 11/08/2014 23:59:59 CLS Outpatient CATERINA SHAH DO [facility] RT DYSPNEA [id number] 11/08/2014 20:53:00 11/08/2014 22:18:00 DIS Emergency SHALOM RAMÍREZ APRN [facility] ER ABD PAIN [id number] 10/01/2014 12:06:00 10/01/2014 13:20:00 DIS Emergency MICHELE COTTON [facility] ER CAT BITE [id number] 09/29/2014 17:38:00 09/29/2014 20:24:00 DIS Emergency SHALOM RAMÍREZ APRN [facility] ER POSSIBLE INTERNAL BLEEDING [id number] 09/06/2014 15:19:00 09/06/2014 16:50:00 DIS Emergency MICHELE COTTON [facility] ER L FOOT/KNEE PAIN [id number] 08/08/2014 14:28:00 08/08/2014 23:59:59 CLS Outpatient CHARLES FREED [facility] RAD PAIN IN LIMB [id number] 06/23/2014 02:44:00 06/23/2014 04:43:00 DIS Emergency CHARLES LOPEZ MD [facility] ER ABD PAIN [id number] 06/21/2014 13:14:00 06/21/2014 16:31:00 DIS Emergency NORIS DOHERTY DO [facility] ER VAG BLEEDING [id number] 06/07/2014 19:12:00 06/07/2014 22:17:00 DIS Emergency NORIS DOHERTY DO [facility] ER LOWER R SIDE PAIN [id number] 05/26/2014 13:46:00 05/26/2014 23:59:59 CLS Outpatient CHAS RODARTE DO [facility] RAD RLQ ABD PAIN [id number] 04/21/2014 22:55:00 04/22/2014 01:35:00 DIS Emergency NORIS DOHERTY DO [facility] ER CP [id number] 02/02/2014 06:00:00 02/02/2014 11:25:00 DIS Outpatient CHAS RODARTE DO [facility] SDC PELVIC PAIN [id number] 01/25/2014 10:03:00 01/25/2014 23:59:59 CLS Outpatient CHAS RODARTE DO [facility] PREOP PELVIC PAIN [id number] 01/12/2014 22:23:00 01/13/2014 00:42:00 DIS Emergency NORIS DOHERTY DO [facility] ER CHEST PAIN [id number] 2013 14:06:00 2013 18:02:00 DIS Emergency MICHELE COTTON [facility] ER POSS UTI [id number] 12/05/2013 20:51:00 12/05/2013 22:14:00 DIS Emergency SHALOM RAMÍREZ APRN [facility] ER PAINFUL URINATION [id number] 11/26/2013 11:37:00 11/26/2013 12:18:00 DIS Emergency SHALOM RAMÍREZ APRN [facility] ER UTI [id number] 09/30/2013 19:00:00 10/01/2013 15:30:00 DIS Outpatient REAGAN MCNEILL MD [facility] CATH CHEST PAIN [id number] 09/12/2013 07:58:00 09/12/2013 23:59:59 CLS Outpatient MICHAEL WAGNER [facility] CARD CAD,CP,GERD, ROGERS [id number] 08/16/2013 11:45:00 08/17/2013 13:35:00 DIS Inpatient REAGAN MCNEILL MD [facility] CSD CHEST PAIN [id number] 07/15/2013 11:49:00 07/15/2013 12:17:00 DIS Emergency SHALOM RAMÍREZ BOAT FUELER [facility] ER RIGHT ANKLE PAIN [id number] 07/11/2013 14:43:00 07/11/2013 23:59:59 CLS Outpatient [id number] 06/10/2013 15:51:00 06/10/2013 23:59:59 CLS Outpatient [id number] 05/19/2013 13:11:00 05/19/2013 23:59:59 CLS Outpatient CHARLES FREED [facility] RAD DX PNEUMONIA [id number] 05/12/2013 21:14:00 05/12/2013 23:15:00 DIS Emergency CHARLES LOPEZ MD [facility] ER SOA [id number] 04/01/2013 12:54:00 04/01/2013 23:59:59 CLS Outpatient CHARLES FREED [facility] CARD SOB, ENLARGED MEDIASTINUM [id number] 02/27/2013 19:11:00 02/27/2013 21:12:00 DIS Emergency MICHELE COTTON [facility] ER NECK/HEAD/BACK PAIN [id number] 01/26/2013 16:39:00 01/26/2013 18:16:00 DIS Emergency CHARLES LOPEZ MD [facility] ER COMPLICATIONS FROM CONCUSSION [id number] 01/11/2013 22:33:00 01/12/2013 03:42:00 DIS Emergency CHARLES LOPEZ MD [facility] ER FELL, HEADACHE, DIZZINESS,NAUSEA [id number] 01/06/2013 09:51:00 01/06/2013 23:59:59 CLS Outpatient GARETT NAM, ACE Summers [facility] LAB NOVELTY CANDY MAKER MED USE [id number] 01/06/2013 09:20:00 01/06/2013 23:59:59 CLS Outpatient CHARLES FREED [facility] RAD 1.3 CM MASS [id number] 12/24/2012 08:13:00 12/24/2012 23:59:59 CLS Outpatient CHARLES FREED [facility] RAD BREAST PAIN [id number] 11/28/2012 04:59:00 11/28/2012 07:08:00 DIS Emergency WERNER HERNANDEZ MD [facility] ER R SIDE FACIAL PAIN; NO INJ [id number] 11/26/2012 17:26:00 11/26/2012 23:59:59 CLS Outpatient [id number] 10/21/2012 14:42:00 10/21/2012 19:32:00 DIS Emergency CELY VIGIL MD [facility] ER GI BLEED [id number] 10/19/2012 03:00:00 10/19/2012 15:15:00 DIS Outpatient REAGAN MCNEILL MD [facility] CATH CHEST PAIN [id number] 10/18/2012 10:23:00 10/18/2012 13:31:00 DIS Emergency CHARLES LOPEZ MD [facility] ER CP [id number] 08/19/2017 17:39:00 ACT Inpatient REAGAN MCNEILL MD [facility] ICU ABN STRESS,CP,HTN [id number] 08/10/2015 18:15:00 Document Registration [id number] 04/22/2014 05:17:00 Document Registration [id number] 04/22/2014 05:17:00 Document Registration [id number] 04/22/2014 05:17:00 Document Registration [id number] 04/22/2014 05:17:00 Document Registration [id number] 04/22/2014 05:17:00 Document Registration [id number] 04/22/2014 05:17:00 Document Registration [id number] 08/17/2012 07:41:00 Document Registration [id number] 08/12/2012 12:16:00 Document Registration [id number] 08/08/2012 21:15:00 Document Registration [id number] 06/20/2012 11:44:00 Document Registration [id number] 05/17/2012 09:58:00 Document Registration [id number] 05/05/2012 07:31:00 Document Registration [id number] 04/20/2012 17:20:00 Document Registration [id number] 03/15/2012 15:15:00 Document Registration [id number] 02/03/2012 05:39:00 Document Registration [id number] 01/29/2012 12:58:00 Document Registration [id number] 01/19/2012 19:43:00 Document Registration [id number] 01/17/2012 15:24:00 Document Registration [id number] 12/31/2011 19:30:00 Document Registration [id number] 11/27/2011 09:08:00 Document Registration [id number] 10/29/2011 19:49:00 Document Registration [id number] 08/28/2011 05:48:00 Document Registration [id number] 08/21/2011 14:12:00 Document Registration [id number] 03/04/2011 13:31:00 Document Registration [id number] 10/08/2010 04:55:00 Document Registration [id number] 08/26/2010 20:58:00 Document Registration [id number] 08/15/2010 09:13:00 Document Registration [id number] 09/15/2009 21:29:00 Document Registration [id number] 09/07/2009 12:20:00 Document Registration [id number] 08/09/2016 03:07:00 Document Registration [id number] 07/10/2017 11:00:00 07/10/2017 23:59:59 [facility] PAYAL VIGIL [facility] [id number] 06/29/2017 14:45:00 Document Registration [id number] 03/26/2017 13:00:00 Document Registration [id number] 01/05/2017 16:00:00 Document Registration [id number] 04/02/2016 13:06:00 Document Registration [id number] 01/06/2017 08:06:00 Document Registration
[2017-08-20] MEDS ORDERED: NITR1PAT57 TD (13:50)
[2017-08-20] MEDS ORDERED: NITR0.4T42 SL (13:50)
[2017-08-20] MEDS ORDERED: warFARin 5 MG (COUMADIN) TAB PO SCH (18:00)
== END 2017-08-20 09:55 | disposition home or self-care (01) ==
LOC: CATH 08:24 → ICU 15:20 → UNDOADMIN 17:39 → ICU 08-20 09:45 → CATH 08-20 09:45 → ICU 08-20 12:22
PROVIDERS: ATTEND Internal Medicine Cardiovascular Disease
DX: I25.110 Atherosclerotic heart disease of native coronary artery with unstable angina pectoris (principal); I10 Essential (primary) hypertension; E66.9 Obesity, unspecified; Z68.43 Body mass index [BMI] 50.0-59.9, adult; E78.5 Hyperlipidemia, unspecified; I77.1 Stricture of artery; E03.9 Hypothyroidism, unspecified; J45.909 Unspecified asthma, uncomplicated; R82.90 Unspecified abnormal findings in urine; Z86.718 Personal history of other venous thrombosis and embolism; Z86.711 Personal history of pulmonary embolism; Z79.01 Long term (current) use of anticoagulants
CPT/HCPCS: 36415; 71045; 80048; 80053; 80061; 81000; 83735; 84100; 85025; 85027; 85610; 85730; 87081; 87088; 93005; 93458

== ENCOUNTER 2017-08-20 12:31 | Emergency (ER) | payer MEDICARE, MEDICAID ==
[~2017-08-20] VITALS: Ht 157.5 cm; Wt 141.5 kg
[~2017-08-20 12:31] MED LIST changes: +ALBU18HF2 INH; +ALBU2.5V4 NEB; +ASPI-983 PO; +ATOR80TA76 PO; +CLOP75TA28 PO; +ISOS30TA3 PO; +NAPR220T66 PO; +OMG1KC PO; +SIMV20TA3 PO; +TOPI50TA13 PO
--- NOTE | 2017-08-20 12:50 | ED Chest Pain ---
General Chief Complaint: Chest Pain Stated Complaint: CP Nursing Triage Note: ARRIVED VIA WC TO ROOM 06. 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 Nursing Sepsis Screen: No Definite Risk History of Present Illness Date Seen by Provider: Aug 20, 2017 Time Seen by Provider: 12:45 Initial Comments Patient is a 61-year-old female who presents to the emergency room with chest pain that started 30 minutes, shortness of breath, nausea, denies any dizziness , diaphoresis. She states that she was discharged from the hospital today at 10: 30 for an episode of chest pain and cardiac catheterization and has not filled her medications including nitroglycerin yet. Timing/Duration: 1/2 hour Severity/Quality: mild Location: substernal Radiation: no radiation Activities at Onset: none Prior CP/Workup: angina, cardiac cath ASA po RADIOGRAPHER MAMMOGRAPHER: Yes NTG SL RADIOGRAPHER MAMMOGRAPHER: No Associated Symptoms: shortness of breath Allergies and Home Medications Allergies Coded Allergies: methylprednisolone (Verified Allergy, Mild, 09/07/09) Penicillins (Unverified Allergy, Unknown, 08/28/11) ketorolac (Verified Allergy, Unknown, ITCHING, 04/12/15) promethazine (Unverified Allergy, Unknown, hallucinations, 02/02/14) venom-honey bee (Unverified Allergy, Unknown, 02/02/14) Uncoded Allergies: TAPE (Allergy, Unknown, 08/16/13) Home Medications Acetaminophen 500 Mg Tablet, 500 MG PO BID PRN for PAIN-MILD, (Reported) Albuterol Sulfate 18 Gm Hfa.aer.ad, 1 PUFF INH Q4H PRN for SHORTNESS OF BREATH, (Reported) Albuterol Sulfate 2.5 Mg/3 Ml Vial.neb, 2.5 MG NEB Q4H PRN for SHORTNESS OF BREATH, (Reported) Aspirin 81 Mg Tablet.dr, 81 MG PO DAILY Prescribed by: REAGAN MELARA on 08/20/17 08 Atorvastatin Calcium 80 Mg Tablet, 80 MG PO HS Prescribed by: REAGAN MELARA on 08/20/17 08 Clopidogrel Bisulfate 75 Mg Tablet, 75 MG PO DAILY Prescribed by: REAGAN MELARA on 08/20/17 08 Isosorbide Mononitrate 30 Mg Tab.er.24h, 30 MG PO DAILY Prescribed by: REAGAN MELARA on 08/20/17 0802 Levothyroxine Sodium 150 Mcg Tablet, 150 MCG PO HS, (Reported) Carlos 3 Polyunsat Fatty Acids 1,000 Mg Cap, 1,000 MG PO BID WITH MEALS Prescribed by: REAGAN MELARA on 08/20/17 0800 Omeprazole 20 Mg Capsule.dr, 20 MG PO DAILY, (Reported) LAST FILLED #30 04-15-17 Topiramate 50 Mg Tablet, 100 MG PO BID PRN for HEADACHE, (Reported) TAKES 2 (50MG) TABLETS Warfarin Sodium 5 Mg Tablet, 5 MG PO SuMoWeFrSa, (Reported) Warfarin Sodium 5 Mg Tablet, 7.5 MG PO TuTh, (Reported) TAKES 1 & 1/2 (5MG) TABLET Patient Home Medication List Home Medication List Reviewed: Yes Review of Systems Constitutional: no symptoms reported, see HPI EENTM: No Symptoms Reported, See HPI Respiratory: See HPI, Shortness of Air Cardiovascular: See HPI, Chest Pain Gastrointestinal: See HPI, Nausea Genitourinary: No Symptoms Reported, See HPI Musculoskeletal: no symptoms reported, see HPI Skin: no symptoms reported, see HPI Psychiatric/Neurological: No Symptoms Reported, See HPI Endocrine: No Symptoms Reported, See HPI Hematologic/Lymphatic: No Symptoms Reported, See HPI Past Ucajeks-Wrzlsq-Zplmnf Hx Patient Social History 2nd Hand Smoke Exposure: No Recent Foreign Travel: No Contact w/Someone Who Travel: No Recent Infectious Disease Expo: No Recent Hopitalizations: No Immunizations Up To Date Tetanus Booster (TDap): Less than 5yrs Date of Pneumonia Vaccine: May 05, 2007 Seasonal Allergies Seasonal Allergies: Yes Past Medical History Surgeries: Yes (D&C;NECK SURGERY;CARDIAC CATH;BREAST BX;COLONOSCOPY;UTERINE FIBROID RESECT) Appendectomy, Breast, Cardiac, Gallbladder, Hysterectomy, Orthopedic, Thyroidectomy Respiratory: Yes (CPAP @ HOME) Asthma, Pneumonia, Sleep Apnea, COPD Currently Using CPAP: Yes (@ HS) Cardiac: Yes (2-PE HX) Coronary Artery Disease, Deep Vein Thrombosis, High Cholesterol, Hypertension, Peripheral Vascular, Syncope Neurological: Yes (NEUROPATHY ARMS & FEET) Neuropathy Reproductive Disorders: Yes (FIBROIDS, CHRONIC PELVIC PAIN ) 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, Menopausal Sexually Transmitted Disease: No HIV/AIDS: No Genitourinary: Yes Kidney Stones Gastrointestinal: Yes Gastroesophageal Reflux Musculoskeletal: Yes (POOR MOBIILITY FROM OBESITY-USES MOTORIZED SCOOTER, CHRONIC GENERALIZED PAIN) Degenerate Disk Disease, Arthritis, Back Injury, Chronic Back Pain, Spasms Endocrine: Yes (MORBID OBESITY) Hypothyroidsim HEENT: No Cancer: No Colon Psychosocial: No Integumentary: No Blood Disorders: Yes (BLOOD CLOTS) Adverse Reaction/Blood Tranf: No Family Medical History Arthritis G8 SISTER Cardiovascular disease 03 FATHER Colon cancer 03 MOTHER Completed stroke 03 MOTHER Hypertension 03 MOTHER G8 BROTHER Myocardial infarction 03 MOTHER Thyroid disease G8 SISTER Physical Exam Vital Signs Vital Signs - First Documented 08/20/17 12:32 Temp 98.0 Pulse 89 Resp 20 B/P (MAP) 133/68 (89) Pulse Ox 94 O2 Delivery Room Air Capillary Refill : Less Than 3 Seconds General Appearance: No Apparent Distress, WD/WN HEENT: PERRL/EOMI, Normal ENT Inspection, Pharynx Normal Neck: Full Range of Motion, Normal Inspection, Non Tender, Supple Respiratory: Chest Non Tender, Lungs Clear, Normal Breath Sounds, No Accessory Muscle Use, No Respiratory Distress Cardiovascular: Regular Rate, Rhythm, No Edema, No Gallop, No JVD, No Murmur, Normal Peripheral Pulses Gastrointestinal: Normal Bowel Sounds, No Organomegaly, No Pulsatile Mass, Non Tender, Soft Rectal: Deferred Extremity: Normal Capillary Refill, Normal Inspection, Normal Range of Motion, Non Tender, No Calf Tenderness Neurologic/Psychiatric: Alert, Oriented x3, No Motor/Sensory Deficits, Normal Mood/Affect, frame nailer II-XII Norm as Tested Skin: Normal Color, Warm/Dry Lymphatic: No Adenopathy Progress/Results/Core Measures Lab Results Laboratory Tests Test 08/20/17 12:45 Range/Units White Blood Count 11.8 H 4.3-11.0 10^3/uL Red Blood Count 4.11 L 4.35-5.85 10^6/uL Hemoglobin 12.5 11.5-16.0 G/DL Hematocrit 39 35-52 % Mean Corpuscular Volume 95 80-99 FL Mean Corpuscular Hemoglobin 30 25-34 PG Mean Corpuscular Hemoglobin Concent 32 32-36 G/DL Red Cell Distribution Width 15.3 H 10.0-14.5 % Platelet Count 182 130-400 10^3/uL Mean Platelet Volume 10.7 H 7.4-10.4 FL Neutrophils (%) (Auto) 74 42-75 % Lymphocytes (%) (Auto) 15 12-44 % Monocytes (%) (Auto) 9 0-12 % Eosinophils (%) (Auto) 2 0-10 % Basophils (%) (Auto) 0 0-10 % Neutrophils # (Auto) 8.8 H 1.8-7.8 X 10^3 Lymphocytes # (Auto) 1.8 1.0-4.0 X 10^3 Monocytes # (Auto) 1.0 0.0-1.0 X 10^3 Eosinophils # (Auto) 0.2 0.0-0.3 10^3/uL Basophils # (Auto) 0.0 0.0-0.1 10^3/uL Sodium Level 136 135-145 MMOL/L Potassium Level 4.0 3.6-5.0 MMOL/L Chloride Level 101 98-107 MMOL/L Carbon Dioxide Level 24 21-32 MMOL/L Anion Gap 11 5-14 MMOL/L Blood Urea Nitrogen 10 7-18 MG/DL Creatinine 0.79 0.60-1.30 MG/DL Estimat Glomerular Filtration Rate > 60 BUN/Creatinine Ratio 13 Glucose Level 191 H 70-105 MG/DL Calcium Level 9.0 8.5-10.1 MG/DL Magnesium Level 1.9 1.8-2.4 MG/DL Total Bilirubin 0.6 0.1-1.0 MG/DL Aspartate Amino Transf (AST/SGOT) 21 5-34 U/L Alanine Aminotransferase (ALT/SGPT) 20 0-55 U/L Alkaline Phosphatase 87 40-136 U/L Myoglobin 52.4 10.0-92.0 NG/ML Troponin I < 0.30 <0.30 NG/ML Total Protein 7.7 6.4-8.2 GM/DL Albumin 3.9 3.2-4.5 GM/DL Lipase 47 8-78 U/L My Orders Orders - SHALOM RAMÍREZ APRN Ekg Tracing (08/20/17 12:35) Cbc With Automated Diff (08/20/17 12:43) Magnesium (08/20/17 12:43) Chest 1 View, Ap/Pa Only (08/20/17 12:43) Cardiac Profile 1 (08/20/17 12:43) Comprehensive Metabolic Panel (08/20/17 12:43) Myoglobin Serum (08/20/17 12:43) O2 (08/20/17 12:43) Monitor-Rhythm Ecg Trace Only (08/20/17 12:43) Lipid Panel (08/21/17 06:00) Nitroglycerin 0.4 Mg Btl 25's (Nitrostat (08/20/17 12:45) Saline Lock/Iv-Start (08/20/17 12:43) Lipase (08/20/17 12:43) Ondansetron Injection (Zofran Injectio (08/20/17 13:00) Ns Iv 500 Ml (Sodium Chloride 0.9%) (08/20/17 13:00) Aspirin Chewable Tablet (Baby Aspirin Ch (08/20/17 13:00) Medications Given in ED Current Medications Medications Dose Ordered Sig/Marcio Route Start Time Stop Time Status Last Admin Dose Admin Aspirin 243 mg ONCE ONCE PO 08/20/17 13:00 08/20/17 13:01 DC 08/20/17 13:09 243 MG Nitroglycerin 0.4 mg UD PRN SL 08/20/17 12:45 08/20/17 13:20 0.4 MG Ondansetron HCl 4 mg ONCE ONCE IVP 08/20/17 13:00 08/20/17 13:01 DC 08/20/17 13:04 4 MG Vital Signs/I&O 08/20/17 12:32 Temp 98.0 Pulse 89 Resp 20 B/P (MAP) 133/68 (89) Pulse Ox 94 O2 Delivery Room Air Blood Pressure Mean: 89 Progress Note : Time: 13:[address] Melara and he agrees with plan of discharge home and suggests nitro patch and sublingual nitroglycerin. He states that the chest pain would be expected with his cardiac catheterization. 1340- chest pain completely resolved after 2 nitro sublingual and will roberto to nitro patch. Initial ECG Impression Date: Aug 20, 2017 Initial ECG Impression Time: 12:32 Initial ECG Rate: 88 Initial ECG Rhythm: Normal Sinus Initial ECG Intervals: Normal Initial ECG Impression: Normal Comment EKG is similar in comparison to EKG on 08/20/17. Departure Impression Primary Impression: Stable angina Disposition: 01 HOME, SELF-CARE Condition: Improved Departure-Patient Inst. Decision time for Depature: 13:41 Referrals: JOSE ALBERTO ARIZA DO (PCP) Primary Care Physician PAYAL VIGIL APRN (Family) Primary Care Physician Patient Instructions: Angina Add. Discharge Instructions: Take medications as directed and be sure to remove your Nitropatch before bed. Return back to the emergency room for any worsening pain, shortness of breath, nausea or vomiting or any other concerns as needed. Keep your follow-up appointment with Dr. Melara and your primary care provider. All discharge instructions reviewed with patient and/or family. Voiced understanding. Scripts Nitroglycerin (Nitroglycerin) 0.4 Mg Tab.subl 0.4 MG SL PRN for Chest Pain, #24 TAB 1 TAB SUBLINGUAL Q5MIN. RETURN TO THE ER IF YOUR CHEST PAIN CONTINUES OR IS UNRESPLVED. Prov: SHALOM RAMÍREZ APRN 08/20/17 Nitroglycerin (Nitroglycerin 0.2mg/HR Patch) 1 Each Patch.td24 1 EACH TD ONCE for 30 Days, #30 PATCH APPLY AM REMOVE HS Prov: SHALOM RAMÍREZ APRN 08/20/17 SHALOM RAMÍREZ APRN Aug 20, 2017 12:50
[2017-08-20 12:56] LABS: BASOPHILS % (AUTO) 0 % (0-10); EOSINOPHILS # (AUTO) 0.2 10^3/uL (0.0-0.3); EOSINOPHILS % (AUTO) 2 % (0-10); HEMATOCRIT 39 % (35-52); HEMOGLOBIN 12.5 G/DL (11.5-16.0); LYMPHOCYTES # (AUTO) 1.8 X 10^3 (1.0-4.0); LYMPHOCYTES % (AUTO) 15 % (12-44); MEAN CORPUSCULAR HEMOGLOBIN 30 PG (25-34); MEAN CORPUSCULAR HGB CONC 32 G/DL (32-36); MEAN CORPUSCULAR VOLUME 95 FL (80-99); MEAN PLATELET VOLUME 10.7 FL (7.4-10.4); MONOCYTES % (AUTO) 9 % (0-12); NEUTROPHILS # (AUTO) 8.8 X 10^3 (1.8-7.8); NEUTROPHILS % (AUTO) 74 % (42-75); PLATELET COUNT 182 10^3/uL (130-400); RED BLOOD COUNT 4.11 10^6/uL (4.35-5.85); RED CELL DISTRIBUTION WIDTH 15.3 % (10.0-14.5); WHITE BLOOD COUNT 11.8 10^3/uL (4.3-11.0)
[2017-08-20] MEDS ORDERED: ASPIRIN 81 MG CHEW (CHILDREN'S ASA) PO ONE (13:00)
[2017-08-20] MEDS ORDERED: ONDANSETRON 4 MG/2 ML (SDV) Z0FRAN IVP ONE (13:00)
[2017-08-20] MEDS ORDERED: NS IV 500 ML 500 ML IV SCH (13:00)
[2017-08-20] MEDS: NITROGLYCERIN 0.4 MG SL TABS BTL 25'S SL PRN ×2 (13:09→13:20)
[2017-08-20 13:19] LABS: ALANINE AMINOTRANSFERASE 20 U/L (0-55); ALBUMIN 3.9 GM/DL (3.2-4.5); ALKALINE PHOSPHATASE 87 U/L (40-136); BILIRUBIN,TOTAL 0.6 MG/DL (0.1-1.0); BUN/CREATININE RATIO 13; CARBON DIOXIDE 24 MMOL/L (21-32); CHLORIDE 101 MMOL/L (98-107); CREATININE SERUM 0.79 MG/DL (0.60-1.30); GFR ESTIMATED > 60; GLUCOSE 191 MG/DL (70-105); LIPASE 47 U/L (8-78); MAGNESIUM 1.9 MG/DL (1.8-2.4); SODIUM 136 MMOL/L (135-145); TOTAL PROTEIN 7.7 GM/DL (6.4-8.2)
--- NOTE | 2017-08-20 13:25 | Diagnostic Imaging Report ---
INDICATION: Chest pain. TIME OF EXAM: 01:16 p.m. Correlation is made with prior study from earlier the same day. FINDINGS: The heart is enlarged but stable. The lungs are clear. No infiltrate or failure is detected. No effusion or pneumothorax is seen. Postop changes in lower cervical spine are noted. IMPRESSION: Stable chest. No acute feature is detected. Dictated by: Dictated on workstation # [id number]
[2017-08-20 13:26] LABS: MYOGLOBIN SERUM 52.4 NG/ML (10.0-92.0)
--- OUTSIDE RECORDS SUMMARY | 2017-08-20 13:37 | XMS REPORT | Continuity of Care Document ---
Author Author [employer] Organization [facility] Address Unknown Phone Unavailable Care Team Providers Care Government Relations Manager Name Role Phone [employer] Unavailable Unavailable Problems Problem Status Onset Date Classification Date Reported Comments Source Other forms of dyspnea 04/07 Diagnosis 04/11/2017 [facility] Pulmonary hypertension, unspecified 04/07/2017 Diagnosis 04/11/2017 [facility] Hyperlipidemia, unspecified 04/07/[address] [facility] Essential (primary) hypertension 04/07/2017 Diagnosis 06/2016 [facility] Chronic obstructive pulmonary disease, unspecified 04/07/2017 Diagnosis 04/11/2017 [facility] Atherosclerotic heart disease of [place] coronary artery without angina pectoris 04/07/2017 Diagnosis 04/11/2017 [facility] Palpitations 04/07/2017 Diagnosis 04/11/2017 [facility] Chest pain, unspecified Diagnosis 04/11/2017 [facility] Chronic obstructive lung disease (disorder) 04/07/2017 Diagnosis 04/11/2017 [facility] Chest pain (finding) 2016 Diagnosis 04/11/2017 [facility] Palpitations (finding) 04/07 Diagnosis 04/11/2017 [facility] Coronary arteriosclerosis (disorder) 04/07/2017 Diagnosis 04/11/2017 [facility] Pulmonary hypertension (disorder) 04/07/[address] [facility] Dyspnea on exertion (finding) 04/07/[address] [facility] Hyperlipidemia (disorder) Diagnosis 04/11/2017 [facility] Hypertensive disorder, systemic arterial (disorder) 04/07/2017 Diagnosis 04/11/2017 [facility] Medications Medication Details Route Status Patient Instructions Ordering Provider Order Date Source No Known Medications No known medications Active [facility] Allergies, Adverse Reactions, Alerts Immunizations Results Vital Signs Encounters Location Location Details Encounter Type Encounter Number Reason For Visit Attending Provider ADM Date DC Date Status Source [facility] [id number] Outpatient [id number] Moisés Antonio 04/07/2017 Active [facility] [id number] SELF REFERRAL 04/07/2017 04/08/2017 [facility] [id number] Outpatient [id number] Moisés Antonio 04/13/2017 Active [facility] [id number] Inpatient [id number] Rayshawn Arnav 04/13/2017 04/14/2017 Active [facility] Procedures Procedure Code Date Perfomer Comments Source Cholecystectomy 05/11/2011 [facility] D & C 05/11/2011 [facility] Throat surgery 05/11/2011 [facility] EGD 05/11/2010 [facility] Plan of Care Social History Assessment and Plan Family History Advance Directives Functional Status
--- OUTSIDE RECORDS SUMMARY | 2017-08-20 13:37 | XMS REPORT | Clinical Summary ---
Author Author [facility] Address Unknown Phone Unavailable Care Team Providers Care Yarn Skeins Examiner Name Role Phone Timmy Canales PCP Zena Ferrera RN Unavailable Unavailable Raman Haskins MD Unavailable Jovanna Heath Unavailable Unavailable Source Comments Some departments are not documenting in the electronic medical record. If you do not see the information that you expected, contact Release of Information in the Health Information Management department at [phone] for further assistance in locating additional records.[facility] Allergies Active Allergy Reactions Severity Noted [...] Taken Blood Pressure 143/86 03/23/2014 2:06 PM SILK PRESSER Pulse 76 03/23/2014 2:06 PM SILK PRESSER Temperature 37.1 C (98.8 F) 03/23/2014 2:06 PM SILK PRESSER Respiratory Rate - - Oxygen Saturation 93% 03/23/2014 2:06 PM SILK PRESSER Inhaled Oxygen - - Concentration Weight 147.1 kg (324 lb 3.2 oz) 03/23/2014 2:06 PM SILK PRESSER Height - - Body Mass Index - [...]
[2017-08-20] MEDS ORDERED: NITR0.4T42 SL (13:50)
[2017-08-20] MEDS ORDERED: NITR1PAT57 TD (13:50)
[2017-08-20 13:57] VITALS: BP 105/94
--- OUTSIDE RECORDS SUMMARY | 2017-08-20 14:00 | XMS REPORT | Continuity of Care Document ---
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 ABDOMINAL PAIN 08/19/2017 KAVYA PATRICK ACCOUNTING SPECIALIST Ot Z68.43 BODY MASS INDEX (BMI) 50-59.9 , ADULT 08/19/2017 REAGAN MCNEILL MD, Ot Z51.81 ENCOUNTER FOR THERAPEUTIC DRUG LEVEL MON 08/19/2017 REAGAN MCNEILL MD, Ot 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 08/19/2017 REAGAN MCNEILL MD, Ot Z86.711 PERSONAL HISTORY OF PULMONARY EMBOLISM 08/19/2017 PAYAL VIGIL APRN Ot M54.2 CERVICALGIA 08/19/2017 PAYAL VIGIL APRN Ot Z53.29 PROC/TRTMT NOT CRD OUT BEC PT DECISION F 08/19/2017 REAGAN MCNEILL MD, Ot Z51.81 ENCOUNTER FOR THERAPEUTIC DRUG LEVEL MON 08/19/2017 REAGAN MCNEILL MD, Ot 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 08/19/2017 REAGAN MCNEILL MD Ot Z86.711 PERSONAL HISTORY OF PULMONARY EMBOLISM 08/19/2017 PAYAL VIGIL APRN Ot J98.11 ATELECTASIS 08/19/2017 PAYAL VIGIL APRN Ot Z87.442 PERSONAL HISTORY OF URINARY CALCULI 08/19/2017 MICHAEL WAGNER Ot I10 ESSENTIAL (PRIMARY) HYPERTENSION 08/19/2017 MICHAEL WAGNER Ot I25.10 ATHSCL HEART DISEASE OF [place] CORONARY 08/19/2017 MICHAEL WAGNER Ot R06.09 OTHER [...] PAIN IN THORACIC SPINE 08/19/2017 KAVYA PATRICK ACCOUNTING SPECIALIST Ot E66.01 MORBID (SEVERE) OBESITY DUE TO EXCESS CA 08/19/2017 KAVYA PATRICK ACCOUNTING SPECIALIST Ot R10.84 GENERALIZED ABDOMINAL PAIN 08/19/2017 KAVYA PATRICK ACCOUNTING SPECIALIST Ot Z68.43 BODY MASS INDEX (BMI) 50-59.9 , ADULT 08/19/2017 REAGAN MCNEILL MD, Ot Z51.81 ENCOUNTER FOR THERAPEUTIC DRUG LEVEL MON 08/19/2017 REAGAN MCNEILL MD, Ot Z79.01 DETENTION (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 OF 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 08/19/2017 REAGAN MCNEILL MD, Ot Z86.711 PERSONAL HISTORY OF PULMONARY EMBOLISM 08/19/2017 PAYAL VIGIL APRN Ot M54.2 CERVICALGIA 08/19/2017 PAYAL VIGIL APRN Ot Z53.29 PROC/TRTMT NOT CRD OUT BEC PT DECISION F 08/19/2017 REAGAN MCNEILL MD, Ot Z51.81 ENCOUNTER FOR THERAPEUTIC DRUG LEVEL MON 08/19/2017 REAGAN MCNEILL MD, Ot Z79.01 DETENTION (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 OF 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 08/19/2017 REAGAN MCNEILL MD, Ot Z86.711 PERSONAL HISTORY OF PULMONARY EMBOLISM 08/19/2017 PAYAL VIGIL APRN Ot J98.11 ATELECTASIS 08/19/2017 PAYAL VIGIL APRN Ot Z87.442 PERSONAL HISTORY OF URINARY CALCULI 08/19/2017 MICHAEL WAGNER Ot I10 ESSENTIAL (PRIMARY) HYPERTENSION 08/19/2017 MICHAEL WAGNER Ot I25.10 ATHSCL HEART DISEASE OF [place] CORONARY 08/19/2017 MICHAEL WAGNER Ot R06.09 OTHER FORMS OF DYSPNEA 08/19/2017 MICHAEL WAGNER Ot R07.89 OTHER CHEST PAIN 08/20/2017 Ot 723.1 CERVICALGIA 08/20/2017 Ot V45.4 ARTHRODESIS STATUS 08/20/2017 Ot 723.0 CERVICAL SPINAL STENOSIS 08/20/2017 Ot V64.3 NO PROC FOR REASONS NEC 08/20/2017 Ot 723.1 CERVICALGIA 08/20/2017 Ot 780.4 DIZZINESS AND GIDDINESS 08/20/2017 Ot 368.9 VISUAL DISTURBANCE NOS 08/20/2017 Ot 723.1 CERVICALGIA 08/20/2017 Ot 780.4 DIZZINESS AND GIDDINESS 08/20/2017 Ot V81.5 SCREEN FOR NEPHROPATHY 08/20/2017 CHARLES FREED Ot 611.71 MASTODYNIA 08/20/2017 CHARLES FREED Ot 610.3 FIBROSCLEROSIS OF BREAST 08/20/2017 GARETT NAM, ACE Z Ot V58.61 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S,LT,CURRENT USE 08/20/2017 GARETT NAM ACE Z Ot V58.83 ENCOUNTER FOR THERAPEUTIC DRUG MONITORIN 08/20/2017 CHARLES FREED Ot 397.0 TRICUSPID VALVE DISEASE 08/20/2017 CHARLES FREED Ot 424.0 MITRAL VALVE DISORDER 08/20/2017 CHARLES FREED Ot 786.05 SHORTNESS OF BREATH 08/20/2017 CHARLES FREED Ot V58.61 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S,LT,CURRENT USE 08/20/2017 CHARLES FREED Ot 486 PNEUMONIA, ORGANISM NOS 08/20/2017 MICHAEL WAGNER Ot 278.1 LOCALIZED ADIPOSITY 08/20/2017 MICHAEL WAGNER Ot 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 ATHEROSCLER NOS TYPE VESSEL, NATIV 08/20/2017 MICHAEL WAGNER Ot 496 CHR AIRWAY OBSTRUCT NEC 08/20/2017 MICHAEL WAGNER Ot 786.09 RESPIRATORY ABNORM NEC 08/20/2017 MICHAEL WAGNER Ot 786.50 CHEST PAIN NOS 08/20/2017 CAYDEN MOYA CHAS Amanda Ot 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 08/20/2017 CAYDEN MOYA CHAS Patel Ot 625.9 FEM GENITAL SYMPTOMS NOS 08/20/2017 CAYDEN MOYA CHAS Patel Ot 626.8 MENSTRUAL DISORDER NEC 08/20/2017 CAYDEN MOYACHAS S Ot 627.1 POSTMENOPAUSAL BLEEDING 08/20/2017 CAYDEN MOYA CHAS Patel Ot V72.84 EXAM PRE-OPERATIVE NOS 08/20/2017 CAYDEN MOYA CHAS Patel Ot V74.8 SCREEN-BACTERIAL DIS NEC 08/20/2017 CAYDEN MOYA CHAS Amanda Ot 789.03 ABDOMINAL PAIN, RIGHT LOWER QUADRANT 08/20/2017 CHARLES FREED Ot 729.5 PAIN IN LIMB 08/20/2017 CATERINA SHAH DO Ot 278.1 LOCALIZED ADIPOSITY 08/20/2017 CATERINA SHAH DO Ot 493.90 ASTHMA, UNSPECIFIED 08/20/2017 CATERINA SHAH DO Ot 786.09 RESPIRATORY ABNORM NEC 08/20/2017 BALDEV LITTLEJOHN DO Ot 569.3 RECTAL ANAL HEMORRHAGE 08/20/2017 BALDEV LITTLEJOHN DO Ot V72.84 EXAM PRE-OPERATIVE NOS 08/20/2017 CAYDEN MOYA CHAS Amanda Ot 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 08/20/2017 CAYDEN DO CHAS Amanda Ot 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 ENDOMETRIAL HYPERPLASIA WITHOUT 08/20/2017 CHAS RODARTE DO Ot V25.42 IUD SURVEILLANCE 08/20/2017 CHASTITYCHAS JOHNSON DO Ot R10.2 PELVIC AND PERINEAL PAIN 08/20/2017 BALDEV LITTLEJOHN DO Ot R10.2 PELVIC AND PERINEAL PAIN 08/20/2017 BALDEV LITTLEJOHN DO Ot R10.10 UPPER ABDOMINAL PAIN, UNSPECIFIED 08/20/2017 BALDEV LITTLEJOHN DO Ot Z01.818 ENCOUNTER FOR OTHER PREPROCEDURAL EXAMIN 08/20/2017 CHASTITYCHAS JOHNSON DO Ot D25.9 LEIOMYOMA OF UTERUS, UNSPECIFIED 08/20/2017 CHASTITYCHAS JOHNSON DO Ot Z01.812 ENCOUNTER FOR PREPROCEDURAL LABORATORY E 08/20/2017 CHAS RODARTE DO Ot Z11.2 ENCOUNTER FOR SCREENING FOR OTHER BACTER 08/20/2017 CHEN INFANTE APRN Ot J06.9 ACUTE UPPER RESPIRATORY INFECTION, UNSPE 08/20/2017 FUENTESMIGDALIA DE DIOS DO Ot 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 08/20/2017 MIGDALIA JIMENEZ DO Ot E03.9 HYPOTHYROIDISM, UNSPECIFIED 08/20/2017 MIGDALIA JIMENEZ DO Ot Z86.010 PERSONAL HISTORY OF COLONIC POLYPS 08/20/2017 PAYAL VIGIL APRN Ot M54.6 PAIN IN THORACIC SPINE 08/20/2017 KAVYA PATRICK APRN Ot E66.01 MORBID (SEVERE) OBESITY DUE TO EXCESS CA 08/20/2017 KAVYA PATRICK APRN Ot R10.84 GENERALIZED ABDOMINAL PAIN 08/20/2017 KAVYA PATRICK APRN Ot Z68.43 BODY MASS INDEX (BMI) 50-59.9 , ADULT 08/20/2017 ERAGAN MCNEILL MD, Ot Z51.81 ENCOUNTER FOR THERAPEUTIC DRUG LEVEL MON 08/20/2017 REAGAN MCNEILL MD, Ot Z79.01 DETENTION (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 OF 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 08/20/2017 REAGAN MCNEILL MD, Ot Z86.711 PERSONAL HISTORY OF PULMONARY EMBOLISM 08/20/2017 PAYAL VIGIL APRN Ot M54.2 CERVICALGIA 08/20/2017 PAYAL VIGIL APRN Ot Z53.29 PROC/TRTMT NOT CRD OUT BEC PT DECISION F 08/20/2017 REAGAN MCNEILL MD, Ot Z51.81 ENCOUNTER FOR THERAPEUTIC DRUG LEVEL MON 08/20/2017 REAGAN MCNEILL MD, Ot 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 08/20/2017 REAGAN MCNEILL MD, Ot Z86.711 PERSONAL HISTORY OF PULMONARY EMBOLISM 08/20/2017 PAYAL VIGIL APRN Ot J98.11 ATELECTASIS 08/20/2017 PAYAL VIGIL APRN Ot Z87.442 PERSONAL HISTORY OF URINARY CALCULI 08/20/2017 MICHAEL WAGNER Ot I10 ESSENTIAL (PRIMARY) HYPERTENSION 08/20/2017 MICHAEL WAGNER Ot I25.10 ATHSCL HEART DISEASE OF [place] CORONARY 08/20/2017 MICHAEL WAGNER Ot R06.09 OTHER FORMS OF DYSPNEA 08/20/2017 MICHAEL WAGNER Ot R07.89 OTHER CHEST PAIN Procedures Code Description Performed By Performed On 06.4 COMPLETE THYROIDECTOMY 09/11/2009 37.22 LEFT HEART CARDIAC CATH 03/17/2012 88.53 LT HEART ANGIOCARDIOGRAM 03/17/2012 88.56 CORONAR ARTERIOGR-2 CATH 03/17/2012 65235 XRAY CERVICAL SPINE, 2 OR 3 VIEWS 04/20/2012 62738 ROUTINE VENIPUNCTURE 04/22/2012 39998 INR (IN HOUSE) 04/22/2012 96225 TSH 04/23/2012 84917 OXIMETRY 04/27/2012 00821 MEASURE BLOOD OXYGEN LEVEL 05/16/2012 00961 ROUTINE VENIPUNCTURE 06/03/2012 29100 XRAY CHEST 2 VIEW 06/03/2012 10394 BNP 06/03/2012 77830 CBC 06/03/2012 02051 INR (IN HOUSE) 06/03/2012 59690 OXIMETRY 06/03/2012 82501 XRAY FOOT LEFT COMP MIN 3 VIEWS 06/17/2012 01614 SPIROMETRY 06/29/2012 03581 BRONCHODILATION PRE/POST 06/29/2012 44771 RESPIRATORY FLOW VOLUME LOOP 06/29/2012 38633 UA W/ CULTURE IF INDICATED 07/13/[address] ABDOMEN & PELVIS STONE SEARCH 07/28/2012 61737 UA W/ CULTURE IF INDICATED 07/28/2012 27304 STONE ANALYSIS 07/29/[address] HEAD/BRAIN W/O & W/DYE 07/30/2012 58634 XRAY ANKLE R COMP MIN, 3 VIEWS 09/02/2012 19366 XRAY FOOT RIGHT 2 VIEWS 09/02/[address] ANGIO, CHEST 10/18/2012 34979 INR (IN HOUSE) 10/28/2012 03562 US GUIDE FOR BIOPSY 12/16/2012 79706 US BREAST(S) ULTRASOUND, BOTH 12/24/2012 02190 INR (IN HOUSE) 01/12/2013 53881 UA W/ CULTURE IF INDICATED 01/12/2013 73070 CULTURE URINE 01/14/2013 60738 INR (IN HOUSE) 02/10/2013 81063 ROUTINE VENIPUNCTURE 03/15/2013 04538 XRAY FOOT RIGHT 2 VIEWS 03/15/2013 46163 TSH 03/15/2013 52663 INR (IN HOUSE) 03/15/2013 00685 XRAY CHEST 2 VIEW 03/23/[address] CHEST W/DYE 03/23/2013 63226 ECHO 2D 03/23/2013 81645 OXIMETRY 03/23/2013 66526 INR (IN HOUSE) 03/29/2013 71149 INR (IN HOUSE) 05/18/2013 80366 XRAY CHEST 2 VIEW 05/19/2013 20742 OXIMETRY 05/23/2013 26299 UA W/ CULTURE IF INDICATED 06/14/2013 74154 ROUTINE VENIPUNCTURE 06/23/2013 04909 INR (IN HOUSE) 06/23/2013 53078 LIPID PANEL 06/23/2013 09421 TSH 06/23/2013 90858 MRI EXTREMITY JOINT, LOWER RIGHT, W/O CONTRAST 07/14/2013 ORTHOPEDI JAMARCUS DEVLIN 07/14/2013 52661 ROUTINE VENIPUNCTURE 08/15/2013 48346 INR (IN HOUSE) 08/15/2013 84940 TSH 08/15/2013 52862 INR (IN HOUSE) 09/02/2013 63226 CULTURE URINE 12/16/2013 17789 UA W/ CULTURE IF INDICATED 12/16/2013 09294 CULTURE URINE 12/19/2013 06371 ROUTINE VENIPUNCTURE 05/26/2014 82286 INR (IN HOUSE) 05/26/2014 50177 TSH 05/26/2014 66217 CBC 05/26/2014 15046 US VENOUS DOPPLER (DVT EVAL ) 08/07/2014 [...] measurement (mass/volume) < ng/ mL <0.30 Thyroid [place] Profile - 04/01/16 09:57 TSH 2.930 uIU/mL [...] blood basophil count (count/volume) 0.0 10*3/uL 0.0-0.1 [id number] - 07/17/16 07:14 Serum or plasma urea [...] 11:16 Hemoglobin A1c 6.8 % 4.8-5.6 Thyroid [place] Profile - 10/22/16 11:16 TSH 7.960 uIU/mL [...] Status Pt. Type Provider Facility Loc./Unit Complaint [id number] 08/07/2014 09:51:00 08/07/2014 23:59:59 CLS Outpatient ARIZA DO JOSE ALBERTO Astrid [id number] 05/26/2014 11:37:00 05/26/2014 23:59:59 CLS Outpatient ARIZA DOJOSE ALBERTO Astrid [id number] 01/16/2014 11:28:00 01/16/2014 23:59:59 CLS Outpatient ARIZA DOJOSE ALBERTO Astrid [id number] 12/26/2013 12:31:00 12/26/2013 23:59:59 CLS Outpatient ARIZA DOJOSE ALBERTO Astrid [id number] 12/19/2013 13:24:00 12/19/2013 23:59:59 CLS Outpatient ARIZA DOJOSE ALBERTO Astrid [id number] 12/16/2013 13:58:00 12/16/2013 23:59:59 CLS Outpatient ARIZA DOJOSE ALBERTO Astrid [id number] 12/16/2013 13:58:00 12/16/2013 23:59:59 CLS Outpatient ARIZA DO JOSE ALBERTO Astrid [id number] 10/07/2013 14:22:00 10/07/2013 23:59:59 CLS Outpatient ARIZA DOJOSE ALBERTO Astrid [id number] 09/02/2013 10:22:00 09/02/2013 23:59:59 CLS Outpatient ARIZA DO JOSE ALBERTO K [id number] 08/15/2013 14:48:00 08/15/2013 23:59:59 CLS Outpatient ARIZA DO JOSE ALBERTO K [id number] 07/14/2013 14:39:00 07/14/2013 23:59:59 CLS Outpatient CHERYL BIRMINGHAM APRN [id number] 07/08/2013 08:55:00 07/08/2013 23:59:59 CLS Outpatient ARIZA DOJOSE ALBERTO [id number] 06/23/2013 09:13:00 06/23/2013 23:59:59 CLS Outpatient CHARLES DOYLE PA-C [id number] 06/14/2013 15:59:00 06/14/2013 23:59:59 CLS Outpatient CHERYL BIRMINGHAM APRN [id number] 05/30/2013 12:08:00 05/30/2013 23:59:59 CLS Outpatient ARIZA DO, JOSE ALBERTO Resendiz [id number] 05/23/2013 10:34:00 05/23/2013 23:59:59 CLS Outpatient ARIZA DO, JOSE ALBERTO Resendiz [id number] 05/23/2013 10:34:00 05/23/2013 23:59:59 CLS Outpatient ARIZA DO, JOSE ALBERTO Resendiz [id number] 05/18/2013 17:42:00 05/18/2013 23:59:59 CLS Outpatient DONI PALAFOX APRN [id number] 04/18/2013 11:55:00 04/18/2013 23:59:59 CLS Outpatient ARIZA DO, JOSE ALBERTO Resendiz [id number] 03/29/2013 11:13:00 03/29/2013 23:59:59 CLS Outpatient ARIZA DO, JOSE ALBERTO Resendiz [id number] 03/22/2013 09:39:00 03/22/2013 23:59:59 CLS Outpatient ARIZA DO, JOSE ALBERTO Resendiz [id number] 03/22/2013 09:39:00 03/22/2013 23:59:59 CLS Outpatient ARIZA DO, JOSE ALBERTO Resendiz [id number] 03/15/2013 09:00:00 03/15/2013 23:59:59 CLS Outpatient ARIZA DO, JOSE ALBERTO Resendiz [id number] 03/15/2013 09:00:00 03/15/2013 23:59:59 CLS Outpatient ARIZA DO, JOSE ALBERTO Astrid [id number] 02/10/2013 08:00:00 02/10/2013 23:59:59 CLS Outpatient ARIZA DO, JOSE ALBERTO Resendiz [id number] 07/28/2012 14:05:00 07/28/2012 23:59:59 CLS Outpatient ARIZA DO, JOSE ALBERTO Astrid [id number] 07/13/2012 10:49:00 07/13/2012 23:59:59 CLS Outpatient ARIZA DO, JOSE ALBERTO Astrid [id number] 06/29/2012 07:51:00 06/29/2012 23:59:59 CLS Outpatient CHARLES DOYLE PA-C [id number] 06/10/2012 10:44:00 06/10/2012 23:59:59 CLS Outpatient [id number] 06/03/2012 09:27:00 06/03/2012 23:59:59 CLS Outpatient JOSE ALBERTO ARIZA DO [id number] 05/14/2012 15:57:00 05/14/2012 23:59:59 CLS Outpatient JOSE ALBERTO ARIZA DO [id number] 04/27/2012 08:04:00 04/27/2012 23:59:59 CLS Outpatient [id number] 04/22/2012 09:50:00 04/22/2012 23:59:59 CLS Outpatient [id number] 04/20/2012 16:19:00 04/20/2012 23:59:59 CLS Outpatient [id number] 02/05/2012 08:28:00 02/05/2012 23:59:59 CLS Outpatient MORIS LOYOLA MD [id number] 01/12/2013 09:13:00 Document Registration [id number] 12/16/2012 09:21:00 Document Registration [id number] 12/16/2012 09:21:00 Document Registration [id number] 10/28/2012 12:34:00 Document Registration [id number] 09/10/2012 16:36:00 Document Registration [id number] 08/31/2012 10:19:00 Document Registration [id number] 08/31/2012 10:19:00 Document Registration [id number] 10/23/2016 15:09:00 Document Registration [id number] 08/05/2017 10:47:00 08/05/2017 23:59:59 CLS Outpatient CHARITO NAM, REAGAN Balderas [facility] LAB Z51.81 Z86.711 [id number] 08/05/2017 10:36:00 08/05/2017 23:59:59 CLS Outpatient MICHAEL WAGNER [facility] CARD I25.10 CAD [id number] 07/13/2017 14:45:00 07/13/2017 23:59:59 CLS Preadmit MICHAEL WAGNER [facility] CARD I25.10 CAD [id number] 07/10/2017 12:47:00 07/10/2017 23:59:59 CLS Outpatient PAYAL VIGIL ACCOUNTING SPECIALIST [facility] RAD N20.0 RENAL STONES [id number] 02/05/2017 12:52:00 02/05/2017 23:59:59 CLS Outpatient PAYAL VIGIL ACCOUNTING SPECIALIST [facility] RAD M54.2 [id number] 01/20/2017 18:36:00 01/20/2017 23:32:00 DIS Emergency JESSICA NAM, CHARLES Shannon [facility] ER SOB,DIZZINESS,NAUSEA [id number] 12/29/2016 00:14:00 12/29/2016 23:59:59 CLS Preadmit REAGAN MCNEILL MD [facility] LAB Z86.711 [id number] 12/28/2016 13:45:00 12/28/2016 15:30:00 DIS Emergency BESSY DONORIS K [facility] ER HEADACHE [id number] 09/29/2016 14:31:00 12/28/2016 00:01:00 DIS Outpatient REAGAN MCNEILL MD [facility] LAB Z86.711 [id number] 09/04/2016 13:36:00 09/04/2016 16:13:00 DIS Emergency MIRIAM SPENCER V BLOCK SAW OPERATOR [facility] ER FALL/ RIGHT KNEE INJ [id number] 07/17/2016 06:58:00 07/17/2016 23:59:59 CLS Outpatient KAVYA PATRICK ACCOUNTING SPECIALIST [facility] RAD GENERALIZED ABD PAIN [id number] 02/16/2016 19:06:00 02/16/2016 22:12:00 DIS Emergency SHALOM RAMÍREZ ACCOUNTING SPECIALIST [facility] ER CHEST PAIN [id number] 02/15/2016 12:58:00 02/15/2016 23:59:59 CLS Outpatient PAYAL VIGIL ACCOUNTING SPECIALIST [facility] RAD ACUTE RT SIDED THORACIC PAIN [id number] 09/05/2015 07:05:00 09/06/2015 09:30:00 DIS Outpatient REAGAN MCNEILL MD [facility] CATH CAD,HTN HLP SYNCOPE [id number] 09/04/2015 14:08:00 09/04/2015 16:10:00 DIS Emergency SHALOM RAMÍREZ APRN [facility] ER CHEST PAIN [id number] 06/21/2015 15:25:00 06/21/2015 19:18:00 DIS Emergency MICHELE COTTON [facility] ER SOA [id number] 05/23/2015 15:54:00 05/23/2015 23:59:59 CLS Outpatient DEFFENBAVA MIGDALIA Abhay [facility] LAB HYPOTHYROIDISM, DISORDER OF THE DIGESTIVE SYSTEM [id number] 05/14/2015 21:53:00 05/15/2015 00:14:00 DIS Emergency NORIS DOHERTY DO [facility] ER POST SURGICAL PAIN [id number] 04/21/2015 12:17:00 04/21/2015 15:18:00 DIS Emergency CHARLES LOPEZ MD [facility] ER POST OP/BLOODY DRAINAGE [id number] 04/19/2015 06:00:00 04/20/2015 19:00:00 DIS Outpatient CHAS RODARTE DO [facility] SDC CRONIC PELVIC PAIN [id number] 04/18/2015 10:51:00 04/18/2015 15:10:00 DIS Outpatient BALDEV LITTLEJOHN DO [facility] SDC ABDOMINAL PAIN [id number] 04/14/2015 10:47:00 04/14/2015 12:53:00 DIS Emergency DEWEY PURDY MD [facility] ER L LEG PAIN/WEAKNESS [id number] 04/12/2015 13:39:00 04/12/2015 23:59:59 CLS Outpatient CHEN INFANTE APRN [facility] LAB ACUTE UPPER RESPIRATORY INFECTION [id number] 04/12/2015 13:34:00 04/12/2015 23:59:59 CLS Outpatient CHAS RODARTE DO [facility] PREOP CRONIC PELVIC PAIN [id number] 04/12/2015 13:20:00 04/12/2015 23:59:59 CLS Outpatient BALDEV LITTLEJOHN DO [facility] PREOP ABD. PAIN [id number] 03/21/2015 14:46:00 03/21/2015 23:59:59 CLS Outpatient CHAS RODARTE DO [facility] RAD PELVIC PAIN [id number] 03/21/2015 10:49:00 03/21/2015 23:59:59 CLS Outpatient BALDEV LITTLEJOHN DO [facility] RAD SUPRAPUBIC ABD PAIN [id number] 01/17/2015 10:59:00 01/17/2015 23:59:59 CLS Outpatient CHAS RODARTE DO [facility] RAD IUD NOT FOUND ON SONO [id number] 01/12/2015 10:03:00 01/12/2015 12:10:00 DIS Emergency MUSA NAM, CELY Resendiz [facility] ER POSS BLOOD CLOT IN LUNG [id number] 01/08/2015 15:12:00 01/08/2015 23:59:59 CLS Outpatient CHAS RODARTE DO [facility] RAD FIBROID UTERUS [id number] 01/05/2015 15:46:00 01/05/2015 17:46:00 DIS Emergency SHALOM RAMÍREZ ACCOUNTING SPECIALIST [facility] ER POST COLONOSCOPY [id number] 01/02/2015 13:01:00 01/02/2015 15:55:00 DIS Outpatient BALDEV LITTLEJOHN DO [facility] SDC RECTAL BLEEDING [id number] 12/28/2014 05:53:00 12/28/2014 23:59:59 CLS Outpatient BALDEV LITTLEJOHN DO [facility] PREOP RECTAL BLEEDING [id number] 11/08/2014 14:02:00 11/08/2014 23:59:59 CLS Outpatient CATERINA SHAH DO [facility] RT DYSPNEA [id number] 11/08/2014 20:53:00 11/08/2014 22:18:00 DIS Emergency SHALOM RAMÍREZ ACCOUNTING SPECIALIST [facility] ER ABD PAIN [id number] 10/01/2014 12:06:00 10/01/2014 13:20:00 DIS Emergency MICHELE COTTON [facility] ER CAT BITE [id number] 09/29/2014 17:38:00 09/29/2014 20:24:00 DIS Emergency SHALOM RAMÍREZ APRN [facility] ER POSSIBLE INTERNAL BLEEDING [id number] 09/06/2014 15:19:00 09/06/2014 16:50:00 DIS Emergency MICHELE COTTON [facility] ER L FOOT/KNEE PAIN [id number] 08/08/2014 14:28:00 08/08/2014 23:59:59 CLS Outpatient CHARLES FREED [facility] RAD PAIN IN LIMB [id number] 06/23/2014 02:44:00 06/23/2014 04:43:00 DIS Emergency CHARLES LOPEZ MD [facility] ER ABD PAIN [id number] 06/21/2014 13:14:00 06/21/2014 16:31:00 DIS Emergency NORIS DOHERTY DO [facility] ER VAG BLEEDING [id number] 06/07/2014 19:12:00 06/07/2014 22:17:00 DIS Emergency NORIS DOHERTY DO [facility] ER LOWER R SIDE PAIN [id number] 05/26/2014 13:46:00 05/26/2014 23:59:59 CLS Outpatient CHAS RODARTE DO [facility] RAD RLQ ABD PAIN [id number] 04/21/2014 22:55:00 04/22/2014 01:35:00 DIS Emergency NORIS DOHERTY DO [facility] ER CP [id number] 02/02/2014 06:00:00 02/02/2014 11:25:00 DIS Outpatient CHAS RODARTE DO [facility] SDC PELVIC PAIN [id number] 01/25/2014 10:03:00 01/25/2014 23:59:59 CLS Outpatient CHAS RODARTE DO [facility] PREOP PELVIC PAIN [id number] 01/12/2014 22:23:00 01/13/2014 00:42:00 DIS Emergency NORIS DOHERTY DO [facility] ER CHEST PAIN [id number] 2013 14:06:00 2013 18:02:00 DIS Emergency MICHELE COTTON [facility] ER POSS UTI [id number] 12/05/2013 20:51:00 12/05/2013 22:14:00 DIS Emergency SHALOM RAMÍREZ ACCOUNTING SPECIALIST [facility] ER PAINFUL URINATION [id number] 11/26/2013 11:37:00 11/26/2013 12:18:00 DIS Emergency SHALOM RAMÍREZ ACCOUNTING SPECIALIST [facility] ER UTI [id number] 09/30/2013 19:00:00 10/01/2013 15:30:00 DIS Outpatient REAGAN MCNEILL MD [facility] CATH CHEST PAIN [id number] 09/12/2013 07:58:00 09/12/2013 23:59:59 CLS Outpatient MICHAEL WAGNER [facility] CARD CAD,CP,GERD, ROGERS [id number] 08/16/2013 11:45:00 08/17/2013 13:35:00 DIS Inpatient REAGAN MCNEILL MD [facility] CSD CHEST PAIN [id number] 07/15/2013 11:49:00 07/15/2013 12:17:00 DIS Emergency SHALOM RAMÍREZ ACCOUNTING SPECIALIST [facility] ER RIGHT ANKLE PAIN [id number] 07/11/2013 14:43:00 07/11/2013 23:59:59 CLS Outpatient [id number] 06/10/2013 15:51:00 06/10/2013 23:59:59 CLS Outpatient [id number] 05/19/2013 13:11:00 05/19/2013 23:59:59 CLS Outpatient CHARLES FREED [facility] RAD DX PNEUMONIA [id number] 05/12/2013 21:14:00 05/12/2013 23:15:00 DIS Emergency CHARLES LOPEZ MD [facility] ER SOA [id number] 04/01/2013 12:54:00 04/01/2013 23:59:59 CLS Outpatient CHARLES FREED [facility] CARD SOB, ENLARGED MEDIASTINUM [id number] 02/27/2013 19:11:00 02/27/2013 21:12:00 DIS Emergency MICHELE COTTON [facility] ER NECK/HEAD/BACK PAIN [id number] 01/26/2013 16:39:00 01/26/2013 18:16:00 DIS Emergency CHARLES LOPEZ MD [facility] ER COMPLICATIONS FROM CONCUSSION [id number] 01/11/2013 22:33:00 01/12/2013 03:42:00 DIS Emergency CHARLES LOPEZ MD [facility] ER FELL, HEADACHE, DIZZINESS,NAUSEA [id number] 01/06/2013 09:51:00 01/06/2013 23:59:59 CLS Outpatient ACE BAJWA MD [facility] LAB DETENTION MED USE [id number] 01/06/2013 09:20:00 01/06/2013 23:59:59 CLS Outpatient CHARLES FREED [facility] RAD 1.3 CM MASS [id number] 12/24/2012 08:13:00 12/24/2012 23:59:59 CLS Outpatient CHARLES FREED [facility] RAD BREAST PAIN [id number] 11/28/2012 04:59:00 11/28/2012 07:08:00 DIS Emergency WERNER HERNANDEZ MD [facility] ER R SIDE FACIAL PAIN; NO INJ [id number] 11/26/2012 17:26:00 11/26/2012 23:59:59 CLS Outpatient [id number] 10/21/2012 14:42:00 10/21/2012 19:32:00 DIS Emergency CELY VIGIL MD [facility] ER GI BLEED [id number] 10/19/2012 03:00:00 10/19/2012 15:15:00 DIS Outpatient REAGAN MCNEILL MD [facility] CATH CHEST PAIN [id number] 10/18/2012 10:23:00 10/18/2012 13:31:00 DIS Emergency JESSICA NAM, CHARLES Shannon [facility] ER CP [id number] 08/20/2017 12:34:00 ACT Emergency RAMÍREZSHALOM ACCOUNTING SPECIALIST [facility] ER CP [id number] 08/19/2017 17:39:00 ACT Inpatient CHARITO NAM, REAGAN Balderas [facility] ICU ABN STRESS,CP,HTN [id number] 08/10/2015 18:15:00 Document Registration [id number] 04/22/2014 05:17:00 Document Registration [id number] 04/22/2014 05:17:00 Document Registration [id number] 04/22/2014 05:17:00 Document Registration [id number] 04/22/2014 05:17:00 Document Registration [id number] 04/22/2014 05:17:00 Document Registration [id number] 04/22/2014 05:17:00 Document Registration [id number] 08/17/2012 07:41:00 Document Registration [id number] 08/12/2012 12:16:00 Document Registration [id number] 08/08/2012 21:15:00 Document Registration [id number] 06/20/2012 11:44:00 Document Registration [id number] 05/17/2012 09:58:00 Document Registration [id number] 05/05/2012 07:31:00 Document Registration [id number] 04/20/2012 17:20:00 Document Registration [id number] 03/15/2012 15:15:00 Document Registration [id number] 02/03/2012 05:39:00 Document Registration [id number] 01/29/2012 12:58:00 Document Registration [id number] 01/19/2012 19:43:00 Document Registration [id number] 01/17/2012 15:24:00 Document Registration [id number] 12/31/2011 19:30:00 Document Registration [id number] 11/27/2011 09:08:00 Document Registration [id number] 10/29/2011 19:49:00 Document Registration [id number] 08/28/2011 05:48:00 Document Registration [id number] 08/21/2011 14:12:00 Document Registration [id number] 03/04/2011 13:31:00 Document Registration [id number] 10/08/2010 04:55:00 Document Registration [id number] 08/26/2010 20:58:00 Document Registration [id number] 08/15/2010 09:13:00 Document Registration [id number] 09/15/2009 21:29:00 Document Registration [id number] 09/07/2009 12:20:00 Document Registration [id number] 08/09/2016 03:07:00 Document Registration [id number] 04/02/2016 13:06:00 Document Registration [id number] 07/10/2017 11:00:00 07/10/2017 23:59:59 [facility] PAYAL VIGIL [facility] [id number] 06/29/2017 14:45:00 Document Registration [id number] 03/26/2017 13:00:00 Document Registration [id number] 01/05/2017 16:00:00 Document Registration [id number] 01/06/2017 08:06:00 Document Registration
== END 2017-08-20 13:57 | disposition home or self-care (01) ==
LOC: EDUNIT# 12:31 → ER 12:34
DX: I20.8 Other forms of angina pectoris (principal); J44.9 Chronic obstructive pulmonary disease, unspecified; G47.30 Sleep apnea, unspecified; I10 Essential (primary) hypertension; I73.9 Peripheral vascular disease, unspecified; E78.00 Pure hypercholesterolemia, unspecified; I25.10 Atherosclerotic heart disease of native coronary artery without angina pectoris; K21.9 Gastro-esophageal reflux disease without esophagitis; E66.01 Morbid (severe) obesity due to excess calories; E03.9 Hypothyroidism, unspecified; Z87.01 Personal history of pneumonia (recurrent); Z88.8 Allergy status to other drugs, medicaments and biological substances; Z88.0 Allergy status to penicillin; Z91.048 Other nonmedicinal substance allergy status; Z86.718 Personal history of other venous thrombosis and embolism; Z85.038 Personal history of other malignant neoplasm of large intestine; Z82.49 Family history of ischemic heart disease and other diseases of the circulatory system; Z80.0 Family history of malignant neoplasm of digestive organs; Z79.82 Long term (current) use of aspirin; Z97.5 Presence of (intrauterine) contraceptive device; Z87.442 Personal history of urinary calculi; Z79.02 Long term (current) use of antithrombotics/antiplatelets; Z79.01 Long term (current) use of anticoagulants; Z79.51 Long term (current) use of inhaled steroids; Z87.448 Personal history of other diseases of urinary system; Z90.49 Acquired absence of other specified parts of digestive tract; Z90.710 Acquired absence of both cervix and uterus; Z90.89 Acquired absence of other organs; Z68.43 Body mass index [BMI] 50.0-59.9, adult
CPT/HCPCS: 36415; 71045; 80053; 83690; 83735; 83874; 84484; 85025; 93005; 93041; 96361; 96374

== ENCOUNTER 2017-09-04 22:50 | Observation (INO) | payer MEDICARE, MEDICAID ==
[~2017-09-04] VITALS: Ht 157.5 cm; Wt 143.1 kg
[~2017-09-04 22:50] MED LIST changes: +INDO50CA PO; -INDO50CA11 PO; +NITR0.4T42 SL; +NITR1PAT57 TD
[2017-09-04] MEDS ORDERED: CLOPIDOGREL 75 MG (PLAVIX) TABLET PO ONE (23:00)
[2017-09-04] MEDS ORDERED: NITROGLYCERIN 0.4 MG SL TABS BTL 25'S SL PRN (23:00)
[2017-09-04] MEDS ORDERED: ASPIRIN 81 MG CHEW (CHILDREN'S ASA) PO ONE (23:00)
[2017-09-04 23:08] LABS: BASOPHILS % (AUTO) 0 % (0-10); EOSINOPHILS # (AUTO) 0.3 10^3/uL (0.0-0.3); EOSINOPHILS % (AUTO) 3 % (0-10); HEMATOCRIT 41 % (35-52); HEMOGLOBIN 12.9 G/DL (11.5-16.0); LYMPHOCYTES # (AUTO) 2.4 X 10^3 (1.0-4.0); LYMPHOCYTES % (AUTO) 23 % (12-44); MEAN CORPUSCULAR HEMOGLOBIN 30 PG (25-34); MEAN CORPUSCULAR HGB CONC 32 G/DL (32-36); MEAN CORPUSCULAR VOLUME 94 FL (80-99); MEAN PLATELET VOLUME 10.4 FL (7.4-10.4); MONOCYTES # (AUTO) 0.8 X 10^3 (0.0-1.0); MONOCYTES % (AUTO) 7 % (0-12); NEUTROPHILS # (AUTO) 6.8 X 10^3 (1.8-7.8); NEUTROPHILS % (AUTO) 66 % (42-75); PLATELET COUNT 231 10^3/uL (130-400); RED BLOOD COUNT 4.34 10^6/uL (4.35-5.85); RED CELL DISTRIBUTION WIDTH 15.2 % (10.0-14.5); WHITE BLOOD COUNT 10.2 10^3/uL (4.3-11.0)
--- NOTE | 2017-09-04 23:11 | ED Chest Pain ---
General Chief Complaint: Chest Pain Stated Complaint: CHEST PAIN Nursing Triage Note: PT TO ED 7 PER W/C W/ FOR C/O CHEST PAIN, CHRONIC, WORSE OVER THE PAST 30 MIN. PT REPORTS HAD STENT X2 PLACED 2WKS AGO ET DENIES IMPROVEMENT IN CP SINCE. ALSO REPORTS "SPASMS" TO CHEST ONSET 1500 TODAY. DOES REPORT C/O NAUSEA ET SOB. NO OTHER C/O VOICED Nursing Sepsis Screen: No Definite Risk Source: patient Exam Limitations: no limitations History of Present Illness Date Seen by Provider: Sep 04, 2017 Time Seen by Provider: 22:56 Initial Comments Here with report of central chest pressure that started as pain. States that she had initial muscle twinges at about 3 p.m. but nothing significant. Approximate 30 minutes ago she started having 8 out of 10 chest pain centrally that changed to pressure after taking 2 nitroglycerin. Had 2 stents placed approximately 2 weeks ago. Reports taking her meds as directed although has not had her Plavix yet today. She usually takes at bedtime. She did take some aspirin this morning. Denies nausea, vomiting but does describe breathing problems and states that she's been short of breath since her heart catheter 2 weeks ago. Does report that she thinks she may have a urinary tract infection and she started having burning with urination this morning. 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: Yes NTG SL EDITORIAL PROJECT MANAGER: No Associated Symptoms: No abdominal pain, No back pain, No dizziness, No nausea/ vomiting; shortness of breath; No weakness Allergies and Home Medications Allergies Coded Allergies: methylprednisolone (Verified Allergy, Mild, 09/07/09) Penicillins (Unverified Allergy, Unknown, 08/28/11) ketorolac (Verified Allergy, Unknown, ITCHING, 04/12/15) promethazine (Unverified Allergy, Unknown, hallucinations, 02/02/14) venom-honey bee (Unverified Allergy, Unknown, 02/02/14) Uncoded Allergies: TAPE (Allergy, Unknown, 08/16/13) Home Medications Acetaminophen 500 Mg Tablet, 500 MG PO BID PRN for PAIN-MILD, (Reported) Albuterol Sulfate 18 Gm Hfa.aer.ad, 1 PUFF INH Q4H PRN for SHORTNESS OF BREATH, (Reported) Albuterol Sulfate 2.5 Mg/3 Ml Vial.neb, 2.5 MG NEB Q4H PRN for SHORTNESS OF BREATH, (Reported) Aspirin 81 Mg Tablet.dr, 81 MG PO DAILY Prescribed by: REAGAN MELARA on 08/20/17 0800 Atorvastatin Calcium 80 Mg Tablet, 80 MG PO HS Prescribed by: REAGAN MELARA on 08/20/17 08 Clopidogrel Bisulfate 75 Mg Tablet, 75 MG PO DAILY Prescribed by: REAGAN MELARA on 08/20/17 08 Isosorbide Mononitrate 30 Mg Tab.er.24h, 30 MG PO DAILY Prescribed by: REAGAN MELARA on 08/20/17 0802 Levothyroxine Sodium 150 Mcg Tablet, 150 MCG PO HS, (Reported) Nitroglycerin 1 Each Patch.td24, 1 EACH TD ONCE APPLY AM REMOVE HS Prescribed by: SHALOM RAMÍREZ on 08/20/17 1350 Nitroglycerin 0.4 Mg Tab.subl, 0.4 MG SL PRN 1 TAB SUBLINGUAL Q5MIN. RETURN TO THE ER IF YOUR CHEST PAIN CONTINUES OR IS UNRESPLVED. Prescribed by: SHALOM RAMÍREZ on 08/20/17 1350 [place] 3 Polyunsat Fatty Acids 1,000 Mg Cap, 1,000 MG PO BID WITH MEALS Prescribed by: REAGAN MELARA on 08/20/17 0800 Omeprazole 20 Mg Capsule.dr, 20 MG PO DAILY, (Reported) LAST FILLED #30 04-15-17 Topiramate 50 Mg Tablet, 100 MG PO BID PRN for HEADACHE, (Reported) TAKES 2 (50MG) TABLETS Warfarin Sodium 5 Mg Tablet, 5 MG PO We, (Reported) Warfarin Sodium 5 Mg Tablet, 7.5 MG PO TuTh, (Reported) TAKES 1 & 1/2 (5MG) TABLET Patient Home Medication List Home Medication List Reviewed: Yes Review of Systems Constitutional: see HPI; No chills, No fever EENTM: No Symptoms Reported Respiratory: Denies Cough; SOA With Exertion Cardiovascular: See HPI, Chest Pain (described as pressure but also has some cramping or muscle pain as well); Denies Irregular Heart Rate Gastrointestinal: Denies Nausea, Denies Vomiting Genitourinary: Burning, Pain Musculoskeletal: no symptoms reported Skin: no symptoms reported All Other Systems Reviewed Negative Unless Noted: Yes Past Seajnky-Uvbyvi-Tubymc Hx Past Med/Social Hx: Reviewed Nursing Past Med/Soc Hx Patient Social History Alcohol Use: Denies Use Recreational Drug Use: No Smoking Status: Never a Smoker 2nd Hand Smoke Exposure: No Recent Foreign Travel: No Contact w/Someone Who Travel: No Recent Infectious Disease Expo: No Recent Hopitalizations: No Immunizations Up To Date Tetanus Booster (TDap): Less than 5yrs Date of Pneumonia Vaccine: May 05, 2007 Seasonal Allergies Seasonal Allergies: Yes Past Medical History Surgeries: Yes (D&C;NECK SURGERY;CARDIAC CATH;BREAST BX;COLONOSCOPY;UTERINE FIBROID RESECT) Appendectomy, Breast, Coronary Stent, Gallbladder, Hysterectomy, Orthopedic, Thyroidectomy Respiratory: Yes (CPAP @ HOME) Asthma, Pneumonia, Sleep Apnea, COPD Currently Using CPAP: Yes (@ HS) Cardiac: Yes (2-PE HX) Coronary Artery Disease, Deep Vein Thrombosis, High Cholesterol, Hypertension, Peripheral Vascular, Syncope Neurological: Yes (NEUROPATHY ARMS & FEET) Neuropathy Reproductive Disorders: Yes (FIBROIDS, CHRONIC PELVIC PAIN ) 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, 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 Sexually Transmitted Disease: No HIV/AIDS: No Genitourinary: Yes Kidney Stones Gastrointestinal: Yes Gastroesophageal Reflux Musculoskeletal: Yes (POOR MOBIILITY FROM OBESITY-USES MOTORIZED SCOOTER, CHRONIC GENERALIZED PAIN) Degenerate Disk Disease, Arthritis, Back Injury, Chronic Back Pain, Spasms Endocrine: Yes (MORBID OBESITY) Hypothyroidsim HEENT: No Cancer: No Colon Psychosocial: No Integumentary: No Blood Disorders: Yes (BLOOD CLOTS) Adverse Reaction/Blood Tranf: No Family Medical History Reviewed Nursing Family Hx Arthritis G8 SISTER Cardiovascular disease 03 FATHER Colon cancer 03 MOTHER Completed stroke 03 MOTHER Hypertension 03 MOTHER G8 BROTHER Myocardial infarction 03 MOTHER Thyroid disease G8 SISTER Physical Exam Vital Signs Vital Signs - First Documented 09/04/17 09/04/17 22:51 23:00 Temp 96.7 Pulse 76 Resp 16 B/P (MAP) 134/78 (96) Pulse Ox 94 O2 Delivery Room Air O2 Flow Rate 2.00 Capillary Refill : Less Than 3 Seconds General Appearance: WD/WN, Mild Distress, Obese HEENT: PERRL/EOMI, Pharynx Normal Neck: Non Tender, Supple Respiratory: Lungs Clear, Normal Breath Sounds Cardiovascular: Regular Rate, Rhythm, No Murmur Gastrointestinal: Non Tender, Soft Extremity: Normal Inspection, Normal Range of Motion, Non Tender, No Calf Tenderness Neurologic/Psychiatric: Alert, Oriented x3 Skin: Normal Color, Warm/Dry Progress/Results/Core Measures Lab Results Laboratory Tests Test 09/04/17 22:58 09/04/17 23:34 Range/Units White Blood Count 10.2 4.3-11.0 10^3/uL Red Blood Count 4.34 L 4.35-5.85 10^6/uL Hemoglobin 12.9 11.5-16.0 G/DL Hematocrit 41 35-52 % Mean Corpuscular Volume 94 80-99 FL Mean Corpuscular Hemoglobin 30 25-34 PG Mean Corpuscular Hemoglobin Concent 32 32-36 G/DL Red Cell Distribution Width 15.2 H 10.0-14.5 % Platelet Count 231 130-400 10^3/uL Mean Platelet Volume 10.4 7.4-10.4 FL Neutrophils (%) (Auto) 66 42-75 % Lymphocytes (%) (Auto) 23 12-44 % Monocytes (%) (Auto) 7 0-12 % Eosinophils (%) (Auto) 3 0-10 % Basophils (%) (Auto) 0 0-10 % Neutrophils # (Auto) 6.8 1.8-7.8 X 10^3 Lymphocytes # (Auto) 2.4 1.0-4.0 X 10^3 Monocytes # (Auto) 0.8 0.0-1.0 X 10^3 Eosinophils # (Auto) 0.3 0.0-0.3 10^3/uL Basophils # (Auto) 0.0 0.0-0.1 10^3/uL Prothrombin Time 29.9 H 12.2-14.7 SEC INR Comment 2.9 H 0.8-1.4 Activated Partial Thromboplast Time 46 H 24-35 SEC Sodium Level 138 135-145 MMOL/L Potassium Level 4.4 3.6-5.0 MMOL/L Chloride Level 103 98-107 MMOL/L Carbon Dioxide Level 25 21-32 MMOL/L Anion Gap 10 5-14 MMOL/L Blood Urea Nitrogen 14 7-18 MG/DL Creatinine 0.92 0.60-1.30 MG/DL Estimat Glomerular Filtration Rate > 60 BUN/Creatinine Ratio 15 Glucose Level 140 H 70-105 MG/DL Calcium Level 9.5 8.5-10.1 MG/DL Magnesium Level 2.3 1.8-2.4 MG/DL Total Bilirubin 0.3 0.1-1.0 MG/DL Aspartate Amino Transf (AST/SGOT) 22 5-34 U/L Alanine Aminotransferase (ALT/SGPT) 20 0-55 U/L Alkaline Phosphatase 100 40-136 U/L Myoglobin 39.3 10.0-92.0 NG/ML Troponin I < 0.30 <0.30 NG/ML Total Protein 8.1 6.4-8.2 GM/DL Albumin 3.9 3.2-4.5 GM/DL Urine Color YELLOW Urine Clarity VERY CLOUDY H Urine pH 5 5-9 Urine Specific Sabina 1.020 1.016-1.022 Urine Protein 2+ H NEGATIVE Urine Glucose (UA) NEGATIVE NEGATIVE Urine Ketones NEGATIVE NEGATIVE Urine Nitrite NEGATIVE NEGATIVE Urine Bilirubin NEGATIVE NEGATIVE Urine Urobilinogen NORMAL NORMAL MG/DL Urine Leukocyte Esterase 3+ H NEGATIVE Urine RBC (Auto) 5+ H NEGATIVE Urine RBC 10-25 H /HPF Urine WBC TNTC H /HPF Urine Squamous Epithelial Cells 2-5 /HPF Urine Crystals NONE /LPF Urine Bacteria FEW H /HPF Urine Casts NONE /LPF Urine Mucus NEGATIVE /LPF Urine Culture Indicated YES My Orders Orders - VINITA DAWN MD Cbc With Automated Diff (09/04/17 22:56) Magnesium (09/04/17 22:56) Chest 1 View, Ap/Pa Only (09/04/17 22:56) Ekg Tracing (09/04/17 22:56) Cardiac Profile 1 (09/04/17 22:56) Comprehensive Metabolic Panel (09/04/17 22:56) Myoglobin Serum (09/04/17 22:56) Protime With Inr (09/04/17 22:56) Partial Thromboplastin Time (09/04/17 22:56) O2 (09/04/17 22:56) Monitor-Rhythm Ecg Trace Only (09/04/17 22:56) Lipid Panel (09/05/17 06:00) Aspirin Chewable Tablet (Baby Aspirin Ch (09/04/17 23:00) Nitroglycerin 0.4 Mg Btl 25's (Nitrostat (09/04/17 23:00) Saline Lock/Iv-Start (09/04/17 22:56) Clopidogrel Tablet (Plavix Tablet) (09/04/17 23:00) Ua Culture If Indicated (09/04/17 23:14) Urine Culture (09/04/17 23:34) Ceftriaxone Injection (Rocephin Injectio (09/05/17 00:15) Morphine Injection (Morphine Injection (09/05/17 00:13) Ondansetron Injection (Zofran Injectio (09/05/17 00:15) Medications Given in ED Current Medications Medications Dose Ordered Sig/Marcio Route Start Time Stop Time Status Last Admin Dose Admin Aspirin 324 mg ONCE ONCE PO 09/04/17 23:00 09/04/17 23:01 DC 09/04/17 23:08 324 MG Ceftriaxone Sodium 1000 mg/ Sodium Chloride 100 ml @ 200 mls/hr ONCE ONCE IV 09/05/17 00:15 09/05/17 00:44 09/05/17 00:15 200 MLS/HR Clopidogrel Bisulfate 75 mg ONCE ONCE PO 09/04/17 23:00 09/04/17 23:01 DC 09/04/17 23:08 75 MG Nitroglycerin 0.4 mg UD PRN SL 09/04/17 23:00 09/05/17 00:10 0.4 MG Vital Signs/I&O 09/04/17 09/04/17 22:51 23:00 Temp 96.7 Pulse 76 Resp 16 B/P (MAP) 134/78 (96) Pulse Ox 94 94 O2 Delivery Room Air Nasal Cannula O2 Flow Rate 2.00 Blood Pressure Mean: 96 Progress Note : Progress Note Seen and evaluated. IV, labs, EKG, chest x-ray, ASA 324 mg by mouth, Plavix 75 mg by mouth and nitroglycerin sublingual ordered. Monitor patient. 0028: I did discuss the case with Dr. Melara. Morphine 4 mg IV given for pain with nitroglycerin. This did help a little bit but still has some pressure and complains of shortness of breath. She did have some nausea after morphine. Zofran 4 mg IV given. We will treat suspected urinary tract infection with Rocephin. Rocephin 1 g IV ordered. I did not do blood cultures her lactic acid as this is not sepsis or septic shock and would have been treated outpatient otherwise but for the chest pain. All findings and concerns were discussed with patient and family and they agree with plan. I discussed the case with Dr. Olivas and she accepts patient for admission, observation status with Dr. Melara on consult. Initial ECG Impression Date: Sep 04, 2017 Initial ECG Impression Time: 23:00 Initial ECG Rate: 75 Initial ECG Rhythm: Normal Sinus Initial ECG Comparisson: Unchanged Comment Sinus rhythm with normal axis. No evidence of ST elevation ME. Similar to previous of 08/20/17. Interpreted by me. Diagonstic Imaging: Xray Plain Films/CT/US/NM/MRI: chest Comments No acute findings compared to previous without significant change. Departure Impression Primary Impression: Chest pain Qualified Codes: R07.9 - Chest pain, unspecified Additional Impression: UTI (urinary tract infection) Qualified Codes: N30.01 - Acute cystitis with hematuria Disposition: ADMITTED INPATIENT Condition: Stable Admissions Decision to Admit Reason: Admit from ER (General) Decision to Admit/Date: Sep 05, 2017 Time/Decision to Admit Time: 00:20 Departure-Patient Inst. Referrals: JOSE ALBERTO ARIZA DO (PCP) Primary Care Physician PAYAL VIGIL APRN (Family) Primary Care Physician VINITA DAWN MD Sep 04, 2017 23:11
[2017-09-04 23:19] LABS: INR 2.9 (0.8-1.4); PROTHROMBIN TIME PATIENT 29.9 SEC (12.2-14.7)
[2017-09-04 23:26] LABS: ALANINE AMINOTRANSFERASE 20 U/L (0-55); ALBUMIN 3.9 GM/DL (3.2-4.5); ALKALINE PHOSPHATASE 100 U/L (40-136); BILIRUBIN,TOTAL 0.3 MG/DL (0.1-1.0); BUN/CREATININE RATIO 15; CALCIUM 9.5 MG/DL (8.5-10.1); CARBON DIOXIDE 25 MMOL/L (21-32); CHLORIDE 103 MMOL/L (98-107); CREATININE SERUM 0.92 MG/DL (0.60-1.30); GFR ESTIMATED > 60; GLUCOSE 140 MG/DL (70-105); MAGNESIUM 2.3 MG/DL (1.8-2.4); POTASSIUM 4.4 MMOL/L (3.6-5.0); SODIUM 138 MMOL/L (135-145); TOTAL PROTEIN 8.1 GM/DL (6.4-8.2)
[2017-09-04 23:32] LABS: MYOGLOBIN SERUM 39.3 NG/ML (10.0-92.0)
[2017-09-04 23:42] LABS: BILIRUBIN,URINE NEGATIVE (NEGATIVE); CLARITY,URINE VERY CLOUDY; COLOR,URINE YELLOW; GLUCOSE, URINE (UA) NEGATIVE (NEGATIVE); KETONES,URINE NEGATIVE (NEGATIVE); LEUKOCYTE ESTERASE ,URINE 3+ (NEGATIVE); NITRITE,URINE NEGATIVE (NEGATIVE); PH,URINE 5 (5-9); PROTEIN,URINE 2+ (NEGATIVE); UROBILINOGEN,URINE NORMAL (NORMAL)
[2017-09-04 23:52] LABS: BACTERIA,URINE FEW /HPF; WBC,URINE TNTC /HPF
[2017-09-05] VITALS (10 sets, daily range): BP systolic 100–130; BP diastolic 56–86
[2017-09-05] MEDS ORDERED: morphine INJ 10 MG/ML 1ML (SYR OR VIAL) IVP STA (00:13)
[2017-09-05] MEDS ORDERED: ONDANSETRON 4 MG/2 ML (SDV) Z0FRAN ONE (00:15)
[2017-09-05] MEDS ORDERED: cefTRIAXone INJECTION 1,000 MG in NS (IVPB) 100 ML IV ONE (00:15)
--- OUTSIDE RECORDS SUMMARY | 2017-09-05 00:39 | XMS REPORT | Clinical Summary ---
Author Author [facility] Organization [facility] Address Unknown Phone Unavailable Care Team Providers Care Tool Crib Attendant Name Role Phone Timmy Canales PCP Zena Ferrera RN Unavailable Unavailable Raman Haskins MD Unavailable Jovanna Heath Unavailable Unavailable Source Comments Some departments are not documenting in the electronic medical record. 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
--- OUTSIDE RECORDS SUMMARY | 2017-09-05 00:39 | XMS REPORT | Continuity of Care Document ---
Author Author [employer] Organization [facility] Address Unknown Phone Unavailable Care Team Providers Care Sizing End Bander Name Role Phone [employer] Unavailable Unavailable Problems Problem Status Onset Date Classification Date Reported Comments Source Other forms of dyspnea 04/07 Diagnosis 04/11/2017 [facility] Pulmonary hypertension, unspecified 04/07/2017 Diagnosis 04/11/2017 [facility] Hyperlipidemia, unspecified 04/07/2017 Diagnosis 2016 [facility] Essential (primary) hypertension 04/07/2017 Diagnosis 06/2016 [facility] Chronic obstructive pulmonary disease, unspecified 04/07/2017 Diagnosis 04/11/2017 [facility] Atherosclerotic heart disease of [place] coronary artery without angina pectoris 04/07/2017 Diagnosis 04/11/2017 [facility] Palpitations 04/07/2017 Diagnosis 04/11/2017 [facility] Chest pain, unspecified Diagnosis 04/11/2017 [facility] Chronic obstructive lung disease (disorder) 04/07/2017 Diagnosis 04/11/2017 [facility] Chest pain (finding) 2016 Diagnosis 04/11/2017 [facility] Palpitations (finding) 04/07 Diagnosis 04/11/2017 [facility] Coronary arteriosclerosis (disorder) 04/07/2017 Diagnosis 04/11/2017 [facility] Pulmonary hypertension (disorder) 04/07/2017 Diagnosis [facility] Dyspnea on exertion (finding) 04/07/2017 Diagnosis 2016 [facility] Hyperlipidemia (disorder) Diagnosis 04/11/2017 [facility] Hypertensive disorder, systemic arterial (disorder) 04/07/2017 Diagnosis 04/11/2017 [facility] Medications Medication Details Route Status Patient Instructions Ordering Provider Order Date Source No Known Medications No known medications Active [facility] Allergies, Adverse Reactions, Alerts Immunizations Results Vital Signs Encounters Location Location Details Encounter Type Encounter Number Reason For Visit Attending Provider ADM Date DC Date Status Source [facility] [id number] Outpatient [id number] Moisés Antonio 04/07/2017 Active [facility] Clinic [id number] SELF REFERRAL 04/07/2017 04/08/2017 [facility] [id number] Outpatient [id number] Moisés Antonio 04/13/2017 Active [facility] [id number] Inpatient [id number] Rayshawn Arnav 04/13/2017 04/14/2017 Active [facility] Procedures Procedure Code Date Perfomer Comments Source Cholecystectomy 05/11/2011 [facility] D & C 05/11/2011 [facility] Throat surgery 05/11/2011 [facility] EGD 05/11/2010 [facility] Plan of Care Social History Assessment and Plan Family History Advance Directives Functional Status
--- OUTSIDE RECORDS SUMMARY | 2017-09-05 00:43 | XMS REPORT ---
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 Active 062679795 Problem Arthritis M19.90 Active 4720825 Problem Personal history of pulmonary embolism Z86.711 Active 622103510 Problem Renal stones N20.0 Active 90805203 Problem Acute gout involving toe of right foot, 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 Active 634513800 Problem Hyperlipidemia, unspecified hyperlipidemia type E78.5 Active 74678866 Problem Morbid obesity with BMI of 50.0-59.9, adult Z68.43 Active 585840952 Problem Intractable migraine without aura and with status migrainosus G43.011 Active 121332891 Problem Hypothyroidism E03.9 Active 21227938 ALLERGIES No Information ENCOUNTERS Encounter Location Date Diagnosis [facility] [address] [address] Aug, [facility] [id number] [place] [address] 59709- 1005 Aug, [facility] [address] [place] [address] 49656- 4663 Aug, [facility] [id number] [place] [address] 46345- 9633 Jul, Renal stones N20.0 [facility] [address], [place] [address] Jun, Back pain M54.9 ; Kidney stones N20.0 and BMI 50.0-59.9, adult Z68.43 [place] [id number] [place] [address] 53194- 4573 Jun, [place] [id number] [place] [address] 19636- 7748 Apr, [place] [address] 40264- 4774 Apr, [place] [address] 74908- 2076 Apr, Right foot pain M79.671 ; Acute gout involving toe of right foot, 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 and Arthritis M19.90 [place] [address] 61749- 0173 06 Apr, 2017 Gastroesophageal reflux disease without esophagitis K21.9 [place] [address] 65129- 4341 16 Mar, 2017 Hypothyroidism, unspecified E03.9 [place] [id number] [place] [address] 70678- 7321 Feb, [place] [id number] [place] [address] 97151- 6649 25 Jan, 2017 Cervicalgia of fbcivxev-osogyjt-pyfaf region M54.2 and Persistent headaches R51 [place] [id number] [place] [address] 92558- 8730 Jan, [place] [id number] [place] [address] 05819- 8524 12 Jan, 2017 Intractable migraine without aura and with status migrainosus G43.011 ; Cervical spine pain M54.2 ; Hyperlipidemia, unspecified hyperlipidemia type E78.5 ; Hypothyroidism E03.9 and Metabolic syndrome E88.81 [place] [id number] [place] [address] 38710- 2772 11 Jan, 2017 Hypothyroidism, unspecified E03.9 [place] [id number] [place] [address] 39268- 3359 Dec, Hypothyroidism, unspecified E03.9 [place] [id number] [place] [address] 20731- 3655 Dec, Hypothyroidism E03.9 [place] [id number] [place] [address] 06941- 1024 Nov, Laceration of left great toe w/o foreign body w/o damage to nail, initial encounter S91.112A [facility] [address] [place] [id number] [place] [address] 08974 -8058 Oct, Pain in left knee M25.562 and Arthritis M19.[address] 87194- 5340 Oct, Hypothyroidism, unspecified E03.9 and Hyperlipidemia, unspecified hyperlipidemia type E78.5 [place] [id number] [place] [address] 87520- 7891 Oct, Gastroesophageal reflux disease without esophagitis K21.9 [place] [id number] [place] [address] 59565- 7186 14 Oct, 2016 Metabolic syndrome E88.81 ; Personal history of pulmonary embolism Z86.711 ; Other specified hypothyroidism E03.8 and Hyperlipidemia, unspecified hyperlipidemia type E78.5 [place] [id number] [place] [address] 50879- 7684 13 Oct, 2016 Personal history of pulmonary embolism Z86.711 ; Dysuria R30.0 ; Metabolic syndrome E88.81 ; Other specified hypothyroidism E03.8 ; Hyperlipidemia, unspecified hyperlipidemia type E78.5 and Morbid obesity with BMI of 50.0-59.9, adult Z68.43 [place] [id number] [place] [address] 66268- 3690 September, [facility] [address] [place] [id number] [place] [address] 15327 -9621 September, Wrist pain, left M25.532 and Acute pain of left knee M25.562 [place] [id number] [place] [address] 36505- 5654 Jul, Dysuria R30.0 [place] [id number] [place] [address] 95272- 7402 Jul, Dysuria R30.0 [place] [address] 18196- 4232 Jul, Left lower quadrant pain R10.32 [place] [id number] [place] [address] 08380- 8633 Jul, [place] [address] 88830- 1582 Jul, Coronary artery disease I25.10 ; Family history of diabetes mellitus Z83.3 ; Morbid obesity with BMI of 50.0-59.9, adult Z68.43 ; Metabolic syndrome E88.81 ; Personal history of pulmonary embolism Z86.711 ; Gastroesophageal reflux disease without esophagitis K21.9 ; Hypothyroidism, unspecified E03.9 ; Hyperlipidemia, unspecified hyperlipidemia type E78.5 and Left lower quadrant pain R10.32 [facility] [place] [id number] [place] [address] 34670 -2766 Jul, [facility] [place] [id number] [place] [address] 45074 -8868 Jul, Morbid obesity with BMI of 50.0-59.9, adult Z68.43 [facility] [place] [id number] [place] [address] 18026 -3032 Jul, Generalized abdominal pain R10.84 [facility] [place] [id number] [place] [address] 95741 -0533 Jun, Muscle strain of right upper back, initial encounter S29.012A [facility] [place] [id number] [place] [address] 59457 -6069 16 Maldonado, 2017 Foreign body (FB) in soft tissue M79.5 [place] [id number] [place] [address] 92675- 5248 Mar, Hypothyroidism, unspecified E03.9 and Arthritis M19.90 [place] [id number] [place] [address] 93009- 4008 13 Feb, 2016 Coronary artery disease I25.10 ; Morbid obesity with BMI of 50.0-59.9, adult Z68.43 ; Metabolic syndrome E88.81 ; Gastroesophageal reflux disease without esophagitis K21.9 ; Hypothyroidism, unspecified E03.9 ; Personal history of pulmonary embolism Z86.711 and Hyperlipidemia, unspecified hyperlipidemia type E78.5 [place] [id number] [place] [address] 94135- 3996 10 Feb, 2016 [facility] [id number] [place] [address] 47907 -1385 12 Jan, 2016 Acute right-sided thoracic back pain M54.6 [place] [id number] [place] [address] 64320- 9232 Jan, Acute pain of left knee M25.562 [place] [id number] [place] [address] 55903- 7468 Dec, Dysuria R30.0 ; Metabolic syndrome E88.81 ; Acute pain of left knee M25.562 ; Acute cystitis with hematuria N30.01 and Acute left eye pain H57.12 [place] [id number] [place] [address] 44529- 7575 Dec, [place] [id number] [place] [address] 77594- 0578 Dec, [place] [id number] [place] [address] 30649- 5774 Dec, Hypothyroidism, unspecified E03.9 [place] [id number] [place] [address] 47904- 8376 Dec, [facility] [place] [address], [place] [address]- 7622 Nov, Peripheral edema R60.9 and Acute pain of left knee M25.562 [facility] [place] [id number] [place] [address] 39832 -1738 September, [place] [id number] [place] [address] 34192- 3259 September, Metabolic syndrome E88.81 and Allergy, subsequent encounter T78.40XD [facility] [address] [place] [address] 52287 -9011 September, Muscle strain T14.8 [place] [id number] [place] [address] 57247- 9052 Aug, Chest pressure R07.89 ; Metabolic syndrome E88.81 ; Morbid obesity with BMI of 50.0-59.9, adult Z68.43 ; Esophageal reflux 530.81 and Shortness of breath R06.[address] [place] [address] 20101- 4826 Aug, [place] [id number] [place] [address] 24397- 1405 Aug, [place] [id number] [place] [address] 68205- 4826 Aug, Hypothyroidism, unspecified E03.9 [place] [id number] [place] [address] 59758- 1232 Aug, Routine health maintenance Z00.00 [facility] [address] [place] [address] 46799 -9217 Aug, [place] [id number] [place] [address] 98466- 7707 Jul, Routine health maintenance Z00.00 ; Family history of diabetes mellitus Z83.3 ; Family history of cancer Z80.9 and Morbid obesity with BMI of 50.0-59.9, adult Z68.43 [facility] [address] [place] [address] 41906 -8932 28 Jul, 2015 Allergic rhinitis J30.9 and Postnasal drip R09.82 [facility] [id number] [place] [address] 95958- 8298 18 Jul, 2015 Influenza J11.1 [facility] [id number] [place] [address] 17781 -0763 08 Jul, 2015 Dysuria R30.0 [facility] [id number] [place] [address] 06295- 6993 Apr, [place] [address] 25960- 5277 Mar, Acute upper respiratory infection, unspecified J06.9 and Hypothyroidism E03.9 [place] [id number] [place] [address] 65445- 4765 Mar, [place] [id number] [place] [address] 48325- 9595 Feb, Coronary artery disease I25.10 [place] [id number] [place] [address] 98246- 6514 Feb, Left foot pain M79.672 [place] [id number] [place] [address] 58242- 3320 Jan, UTI (urinary tract infection) 599.0 [place] [id number] [place] [address] 84920- 1513 Jan, Urinary tract infection, site not specified 599.0 [facility] [id number] [place] [address] 26496- 9194 Jan, Urinary tract infection, site not specified 599.0 [facility] [id number] [place] [address] 79394- 4733 Jan, [facility] [id number] [place] [address] 01994- 4360 Dec, Headache 784.0 [facility] [address], [place] [address]- 4504 Dec, Urinary tract infection, site not specified 599.0 [facility] [address] [place] [address] 13655- 9474 Dec, Urinary tract infection, site not specified 599.0 [facility] [address] [place] [address] 26960- 7307 Dec, Urinary tract infection, site not specified 599.0 [facility] [address] [place] [address] 32368- 1903 Nov, Unspecified sleep apnea 780.57 ; Encounter for long-term ( current) use of anticoagulants V58.61 ; Routine general medical examination at [facility] facility V70.0 and Arthritis of both knees 716.96 [facility] [id number] [place] [address] 98871- 7913 September, Cat bite of hand 882.0 and Rectal bleeding 569.3 [facility] [address], [place] [address]- 4074 Aug, [facility] [address] [place] [address] 90440- 6750 Aug, [facility] [address], [place] [address]- 0631 Jul, [facility] [address], [place] [address]- 6009 Jul, [facility] [address], [place] [address]- 3408 Jul, [facility] [id number] [place] [address] 76549- 4527 Jul, [facility] [address], [place] [address]- 6104 Jul, [facility] [id number] [place] [address] 68532- 1570 Jul, [facility] [place] [facility] [address] [id number] [place] [address]- 5005 Jul, [facility] [place] [facility] [address] [id number] [place] [address]- 4450 Jul, [facility] [place] [facility] [address] [id number] [place] [address]- 2489 May, [facility] [place] [facility] [address] [id number] [place] [address]- 7769 May, [facility] [place] [facility] [address] [id number] [place] [address]- 4391 May, [facility] [place] [facility] [address] [id number] [place] [address]- 6849 May, [facility] [place] [facility] [address] [id number] [place] [address]- 7497 May, [facility] [place] [facility] [address] [id number] [place] [address]- 5803 May, [facility] [place] [facility] [address] [id number] [place] [address]- 6997 May, [facility] [place] [facility] [address] [facility] [place] [id number] [place] [address]- 5510 Mar, [facility] [place] [facility] [address] [id number] [address]- 9168 Mar, [facility] [place] [facility] [address] [id number] [address]- 9013 Jan, [facility] [place] [facility] [address] [id number] [place] [address]- 5894 Jan, [facility] [place] [facility] [address] [id number] [place] [address]- 5365 Jan, [facility] [place] [facility] [address] [id number] [place] [address]- 7465 Jan, [facility] [place] [facility] [address] [id number] [place] [address]- 7365 Jan, [facility] [place] [facility] [address] [id number] [place] [address]- 2208 Jan, [facility] [place] [facility] [address] [id number] [place] [address]- 0225 Dec, [facility] [place] [facility] [address] [id number] [place] [address]- 4827 Dec, [facility] [place] [facility] [address] [id number] [place] [address]- 1930 Dec, [facility] [place] [facility] [address] [id number] [place] [address]- 5447 Dec, [facility] [place] [facility] [address] [id number] [place] [address]- 8594 Dec, [facility] [place] [facility] [address] [id number] [place] [address]- 8705 Dec, [facility] [place] [facility] [address] [id number] [place] [address]- 9776 Dec, [facility] [place] [facility] [address] [id number] [place] [address]- 8463 Dec, [facility] [place] [facility] [address] [id number] [place] [address]- 3902 Dec, [facility] [place] [facility] [address] [id number] [place] [address]- 5479 Dec, [facility] [place] [facility] [address] [id number] [place] [address]- 1631 Nov, [facility] [place] [facility] [address] [id number] [place] [address]- 7010 Nov, [facility] [place] [facility] [address] [id number] [place] [address]- 6210 September, [facility] [place] [facility] [address] [id number] [place] [address]- 7799 September, [facility] [place] [facility] [address] [id number] [place] [address]- 9748 September, [facility] [place] [facility] [address] [id number] [place] [address]- 7158 September, [facility] [place] [facility] [address] [id number] [place] [address]- 2783 Aug, [facility] [place] [facility] [address] [id number] [place] [address]- 7921 Aug, [facility] [place] [facility] [address] [id number] [place] [address]- 9464 Aug, [facility] [place] [facility] [address] [id number] [place] [address]- 2078 Aug, [facility] [place] [facility] [address] [id number] [place] [address]- 4423 Aug, [facility] [place] [facility] [address] [id number] [place] [address]- 8929 Aug, [facility] [place] [facility] [address] [id number] [place] [address]- 6604 Aug, [facility] [place] [facility] [address] [id number] [place] [address]- 3322 Aug, [facility] [place] [facility] [address] [id number] [place] [address]- 4928 Aug, [facility] [place] [facility] [address] [id number], [place] [address]- 1020 Aug, [facility] [place] [facility] [address] [id number] [place] [address]- 2456 Aug, [facility] [place] [facility] [address] [id number] [place] [address]- 8057 Aug, [facility] [place] [facility] [address] [id number] [place] [address]- 4665 Jul, [facility] [place] [facility] [address] [id number] [place] [address]- 8786 20 Jul, 2013 [facility] [place] [facility] [address] [id number] [place] [address]- 1173 Jul, [facility] [place] [facility] [address] [id number] [place] 8946 Jul, [facility] [place] [facility] [address] [id number] [place] [address]- 1216 Jul, [facility] [place] [facility] [address] [id number] [place] [address]- 1829 Jul, [facility] [place] [facility] [address] [id number] [place] [address]- 2226 05 Jul, 2013 [facility] [place] [facility] [address] [id number] [place] [address]- 0842 Jul, [facility] [place] [facility] [address] [id number] [place] [address]- 4122 Jul, [facility] [place] [facility] [address] [id number] [place] [address]- 4602 Jul, [facility] [place] [facility] [address] [id number] [place] [address]- 2938 Jun, [facility] [place] [facility] [address] [facility] [place] [id number] [place] [address]- 4132 28 Jun, 2013 [facility] [place] [facility] [address] [id number] [place] [address]- 0166 17 Jun, 2013 [facility] [place] [facility] [address] [facility] [place] [id number] [place] [address]- 1656 17 Jun, 2013 [facility] [place] [facility] [address] [id number] [place] 0670 Jun, [facility] [place] [facility] [address] [facility] [place] [id number] [place] [address]- 5836 Jun, [facility] [place] [facility] [address] [facility] [place] [place] [id number] [place] [address]- 5819 Jun, [facility] [place] [facility] [address] [id number] [place] [address]- 9504 Jun, [facility] [place] [facility] [address] [id number] [place] [address]- 8723 Jun, [facility] [place] [facility] [address] [id number] [place] 9766 Jun, [facility] [place] [facility] [address] [id number] [place] [address]- 5218 Jun, [facility] [place] [facility] [address] [id number] [place] [address]- 2129 Jun, [facility] [place] [facility] [address] [id number] [place] [address]- 7144 May, [facility] [place] [facility] [address] [id number] [place] [address]- 6893 May, [facility] [place] [facility] [address] [id number] [place] [address]- 5930 May, [facility] [place] [facility] [address] [id number] [place] [address]- 3414 May, [facility] [place] [facility] [address] [id number] [place] [address]- 7701 May, [facility] [place] [facility] [address] [id number] [place] [address]- 3035 May, [facility] [place] [facility] [address] [id number] [place] [address]- 5545 May, [facility] [place] [facility] [address] [id number] [place] [address]- 9605 May, [facility] [place] [facility] [address] [id number] [place] [address]- 0461 May, [facility] [place] [facility] [address] [id number] [place] [address]- 5213 May, [facility] [place] [facility] [address] [id number] [place] [address]- 8539 08 May, 2013 [facility] [address] [id number] [place] [address]- 9722 May, [facility] [address] [id number] [place] [address] May, [facility] [address] [id number] [place] [address] May, [facility] [address] [id number] [place] [address] May, [facility] [address] [id number] [place] [address] Apr, [facility] [address] [id number] [place] [address] Apr, [facility] [address] [id number] [place] [address] Apr, [facility] [address] [id number] [place] [address] Apr, [facility] [address] [id number] [place] [address] Mar, [facility] [address] [id number] [place] [address] Mar, [facility] [address] [id number] [place] [address] Mar, [facility] [address] [id number] [place] [address] Mar, [facility] [place] [facility] [address] [id number] [place] [address] Mar, [facility] [address] [id number] [place] [address] Mar, [facility] [address] [id number] [place] [address] Mar, [facility] [place] [facility] [address] [id number] [place] [address] Mar, [facility] [place] [facility] [address] [id number] [place] [address] Mar, [facility] [place] [facility] [address] [id number] [place] [address] Mar, [facility] [place] [facility] [address] [id number] [place] [address] Mar, [facility] [place] [facility] [address] [id number] [place] [address] Mar, [facility] [place] [facility] [address] [id number] [place] [address] Feb, [facility] [place] [facility] [address] [id number] [place] [address] 18 Jan, 2013 [facility] [place] [facility] [address] [id number] [place] [address] 17 Jan, 2013 [facility] [place] [facility] [address] [id number] [place] [address] 06 Jan, 2013 [facility] [place] [facility] [address] [id number], [place] [address] 04 Jan, 2013 [facility] [place] [facility] [address] [id number], [place] [address] Jan, [facility] [place] [facility] [address] [id number], [place] [address] Dec, [facility] [place] [facility] [address] [id number] [place] [address] Dec, [facility] [place] [facility] [address] [id number] [place] [address] Dec, [facility] [place] [facility] [address] [id number], [place] [address] Dec, [facility] [place] [facility] [address] [id number], [place] [address] Dec, [facility] [place] [facility] [address] [id number] [place] [address] Dec, [facility] [place] [facility] [address] [facility] [place] [id number] [place] [address] Dec, [facility] [place] [facility] [address] [facility] [place] [id number] [place] [address] Dec, [facility] [place] [facility] [address] [facility] [place] [id number] [place] [address] Nov, [facility] [place] [facility] [address] [facility] [place] [id number] [place] [address] Nov, [facility] [place] [facility] [address] [facility] [place] [id number] [place] [address] Nov, [facility] [place] [facility] [address] [facility] [place] [id number] [place] [address] Nov, [facility] [place] [facility] [address] [facility] [place] [id number] [place] [address] Nov, [facility] [place] [facility] [address] [facility] [place] [id number] [place] [address] Nov, [facility] [place] [facility] [address] [facility] [place] [id number] [place] [address] Oct, [facility] [address] [facility] [id number] [place] [id number] Oct, [facility] [address] [id number] [place] [id number] Oct, [facility] [address] [id number] [place] [id number] Oct, [facility] [address] [facility] [id number] [place] [id number] Oct, [facility] [place] [facility] [address] [facility] [place] [id number] [place] [address] Oct, [facility] [place] [facility] [address] [facility] [place] [id number] [place] [address] 2017 Oct, [facility] [address] [id number] [place] [address] Oct, [facility] [place] [facility] [address] [id number] [place] [address] Oct, [facility] [place] [facility] [address] [id number] [place] [address] Oct, [facility] [place] [facility] [address] [id number] [place] [address] Oct, [facility] [place] [facility] [address] [id number] [place] [address] September, [facility] [place] [facility] [address] [id number] [place] [address] Aug, [facility] [place] [facility] [address] [id number] [place] [address] Aug, [facility] [place] [facility] [address] [id number] [place] [address] Aug, [facility] [place] [facility] [address] [id number] [place] [address] Aug, [facility] [place] [facility] [address] [id number] [place] [address] Jul, [facility] [place] [facility] [address] [id number] [address] Jul, [facility] [place] [facility] [address] [id number], [place] [address] Jul, [facility] [place] [facility] [address] [id number] [place] [address] Jul, [facility] [place] [facility] [address] [id number] [place] [address] Jul, [facility] [place] [facility] [address] [id number] [place] [address] Jun, [facility] [place] [facility] [address] [id number] [place] [address]- 2015 13 Jun, 2012 [facility] [address] [id number] [place] [address] 11 Jun, 2012 [facility] [address] [id number] [place] [address] May, [facility] [address] [id number] [place] [address] 24 May, 2012 [facility] [address] [id number] [place] [address] 14 May, 2012 [facility] [address] [id number] [place] [address] May, [facility] [address] [id number] [place] [address] May, [facility] [address] [id number] [place] [address] May, [facility] [address] [id number] [place] [address] 18 Apr, 2012 [facility] [address] [id number] [place] [address] 18 Apr, 2012 [facility] [address] [id number] [place] [address] 13 Apr, 2012 [facility] [address] [id number] [place] [address] 13 Apr, 2012 [facility] [address] [id number] [place] [address] 13 Apr, 2012 [facility] [address] [id number] [place] [address] 11 Apr, 2012 [facility] [address] [id number] [place] [address] 11 Apr, 2012 [facility] [address] [id number] [place] [address] Mar, [facility] [address] [id number] [place] [address] Mar, [facility] [place] [facility] [address] [id number] [place] [address] Mar, [facility] [place] [facility] [address] [id number] [place] [address] Mar, [facility] [place] [facility] [address] [id number] [place] [address] Jan, [facility] [place] [facility] [address] [id number] [place] [address] Jan, [facility] [place] [facility] [address] [id number] [place] [address] Jan, [facility] [address] [id number] [place] [address] Jan, [facility] [address] [id number] [id number] Dec, [facility] [address] [id number] [place] [address] Dec, [facility] [address] [id number] [place] [id number] Dec, [facility] [address] [id number] [place] [address] Dec, [facility] [place] [facility] [address] [id number] [place] [address] Dec, [facility] [place] [facility] [address] [id number] [place] [address] Dec, [facility] [place] [facility] [address] [id number] [place] [address] Nov, [facility] [place] [facility] [address] [id number] [place] [address] Nov, [facility] [place] [facility] [address] [id number] [place] [address] Nov, IMMUNIZATIONS No Known Immunizations SOCIAL HISTORY Never Assessed REASON FOR VISIT lab order PLAN OF CARE VITAL SIGNS MEDICATIONS Unknown Medications RESULTS No Results PROCEDURES No Known [...]
[2017-09-05] MEDS ORDERED: ONDANSETRON 4 MG/2 ML (SDV) Z0FRAN IVP ONE (00:45)
--- OUTSIDE RECORDS SUMMARY | 2017-09-05 00:54 | XMS REPORT ---
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 Active 704895155 Problem Arthritis M19.90 Active 0124266 Problem Personal history of pulmonary embolism Z86.711 Active 039921318 Problem Renal stones N20.0 Active 06958140 Problem Acute gout involving toe of right foot, 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 Active 225106663 Problem Hyperlipidemia, unspecified hyperlipidemia type E78.5 Active 00376183 Problem Morbid obesity with BMI of 50.0-59.9, adult Z68.43 Active 562216848 Problem Intractable migraine without aura and with status migrainosus G43.011 Active 242927075 Problem Hypothyroidism E03.9 Active 58636082 ALLERGIES No Information ENCOUNTERS Encounter Location Date Diagnosis [facility] [facility] [address] [address] Aug, [facility] [place] [facility] [id number], [place] [address] Aug, [facility] [place] [facility] [id number] [address] Jul, Renal stones N20.0 [facility] [id number] [address] Jun, Back pain M54.9 ; Kidney stones N20.0 and BMI 50.0-59.9, adult Z68.43 [facility] [place] [facility] [id number] [place] [address] 68383- 8030 Jun, [place] [id number] [place] [address] 27555- 6698 Apr, [facility] [place] [facility] [id number] [place] [address] 88603- 7032 Apr, [place] [address] [address]- [address] Apr, Right foot pain M79.671 ; Acute gout involving toe of right foot, 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 and Arthritis M19.90 [place] [address] [address]- 79[address] Apr, Gastroesophageal reflux disease without esophagitis K21.9 [place] [address] 69346- 6634 Mar, Hypothyroidism, unspecified E03.9 [place] [address] 50225- 4789 Feb, [place] [id number] [place] [address] 37399- 9525 25 Jan, 2017 Cervicalgia of jfcgqqxt-cqcmlkm-tnzqh region M54.2 and Persistent headaches R51 [place] [id number] [place] [address] 79405- 1990 Jan, [place] [address] [place] [address] 90415- 3620 12 Jan, 2017 Intractable migraine without aura and with status migrainosus G43.011 ; Cervical spine pain M54.2 ; Hyperlipidemia, unspecified hyperlipidemia type E78.5 ; Hypothyroidism E03.9 and Metabolic syndrome E88.81 [place] [address] [place] [address] 05088- 5073 Jan, Hypothyroidism, unspecified E03.9 [place] [address] [place] [address] 54388- 2500 Dec, Hypothyroidism, unspecified E03.9 [place] [address] [place] [address] 35128- 2882 Dec, Hypothyroidism E03.9 [place] [address] [place] [address] 71851- 5438 Nov, Laceration of left great toe w/o foreign body w/o damage to nail, initial encounter S91.112A [facility] [place] [id number] [place] [address] 17827 -5075 Oct, Pain in left knee M25.562 and Arthritis M19.[address] [address]697- 4125 Oct, Hypothyroidism, unspecified E03.9 and Hyperlipidemia, unspecified hyperlipidemia type E78.5 [place] [address] [place] [address] 14832- 0161 Oct, Gastroesophageal reflux disease without esophagitis K21.9 [place] [address] [place] [address] 29454- 0792 14 Oct, 2016 Metabolic syndrome E88.81 ; Personal history of pulmonary embolism Z86.711 ; Other specified hypothyroidism E03.8 and Hyperlipidemia, unspecified hyperlipidemia type E78.5 [place] [address] [place] [address] 02950- 5637 13 Oct, 2016 Personal history of pulmonary embolism Z86.711 ; Dysuria R30.0 ; Metabolic syndrome E88.81 ; Other specified hypothyroidism E03.8 ; Hyperlipidemia, unspecified hyperlipidemia type E78.5 and Morbid obesity with BMI of 50.0-59.9, adult Z68.43 [place] [id number] [place] [address] 53745- 8253 September, [facility] [place] [address] [place] [address] 00312 -6471 September, Wrist pain, left M25.532 and Acute pain of left knee M25.[address] [place] [address]- 9126 Jul, Dysuria R30.0 [place] [address] 94743- 0594 Jul, Dysuria R30.0 [place] [address] 21059- 8480 Jul, Left lower quadrant pain R10.32 [place] [address] 62159- 7485 Jul, [place] [address] 15826- 7325 Jul, Coronary artery disease I25.10 ; Family history of diabetes mellitus Z83.3 ; Morbid obesity with BMI of 50.0-59.9, adult Z68.43 ; Metabolic syndrome E88.81 ; Personal history of pulmonary embolism Z86.711 ; Gastroesophageal reflux disease without esophagitis K21.9 ; Hypothyroidism, unspecified E03.9 ; Hyperlipidemia, unspecified hyperlipidemia type E78.5 and Left lower quadrant pain R10.32 [facility] [address] [address] Jul, [facility] [place] [address] 64478 -1169 Jul, Morbid obesity with BMI of 50.0-59.9, adult Z68.43 [facility] [address] [address]21 [address]46 Jul, Generalized abdominal pain R10.84 [facility] [address] 45[address]3 Jun, Muscle strain of right upper back, initial encounter S29.012A [facility] [address] 28068 -0502 May, Foreign body (FB) in soft tissue M79.5 [place] [address] 11058- 3359 Mar, Hypothyroidism, unspecified E03.9 and Arthritis M19.90 [place] [address] [place] [address] 18056- 4343 Feb, Coronary artery disease I25.10 ; Morbid obesity with BMI of 50.0-59.9, adult Z68.43 ; Metabolic syndrome E88.81 ; Gastroesophageal reflux disease without esophagitis K21.9 ; Hypothyroidism, unspecified E03.9 ; Personal history of pulmonary embolism Z86.711 and Hyperlipidemia, unspecified hyperlipidemia type E78.5 [place] [address] [place] [address] 62653- 1435 Feb, [facility] [address] [place] [address] 00786 -7200 Jan, Acute right-sided thoracic back pain M54.6 [place] [address] [place] [address] 04293- 2970 Jan, Acute pain of left knee M25.562 [place] [address] [place] [address] 75174- 9672 Dec, Dysuria R30.0 ; Metabolic syndrome E88.81 ; Acute pain of left knee M25.562 ; Acute cystitis with hematuria N30.01 and Acute left eye pain H57.12 [place] [address] [place] [address] 07973- 6465 Dec, [place] [address] [place] [address] 90212- 2476 Dec, [place] [address] [place] [address] 49635- 5958 Dec, Hypothyroidism, unspecified E03.9 [place] [address] [place] [address] 72785- 2051 Dec, [place] [address] [place] [address] 54782- 7465 Nov, Peripheral edema R60.9 and Acute pain of left knee M25.562 [facility] [place] [address] [place] [address] 05031 -2860 September, [place] [address] [place] [address] 75403- 1919 September, Metabolic syndrome E88.81 and Allergy, subsequent encounter T78.40XD [facility] [place] [address] 81414 -0003 September, Muscle strain T14.8 [place] [address] 47220- 7707 Aug, Chest pressure R07.89 ; Metabolic syndrome E88.81 ; Morbid obesity with BMI of 50.0-59.9, adult Z68.43 ; Esophageal reflux 530.81 and Shortness of breath R06.02 [place] [address] [place] [address] 18202- 8477 Aug, [place] [address] [place] [address] 15577- 8667 Aug, [place] [address] 54308- 4974 Aug, Hypothyroidism, unspecified E03.9 [place] [address] [place] [address] 23319- 4911 Aug, Routine health maintenance Z00.00 [facility] [place] [address] [place] [address] 09284 -4001 Aug, [place] [address] [place] [address] 76927- 8832 Jul, Routine health maintenance Z00.00 ; Family history of diabetes mellitus Z83.3 ; Family history of cancer Z80.9 and Morbid obesity with BMI of 50.0-59.9, adult Z68.43 [facility] [place] [address] [place] [address] 14388 -9476 Jul, Allergic rhinitis J30.9 and Postnasal drip R09.82 [facility] [address] [place] [address] 74288- 6890 Jul, Influenza J11.1 [facility] [address] [place] [address] 34012 -9211 08 Jul, 2015 Dysuria R30.0 [facility] [address] [place] [address] 68860- 6347 Apr, [facility] [address] [place] [address] 22042- 5988 Mar, Acute upper respiratory infection, unspecified J06.9 and Hypothyroidism E03.9 [place] [address] 54998- 4330 Mar, [facility] [address] 40947- 1393 Feb, Coronary artery disease I25.10 [facility] [address] [place] [address] 94785- 4796 Feb, Left foot pain M79.672 [place] [address] [place] [address] 64762- 4408 Jan, UTI (urinary tract infection) 599.0 [facility] [address] [place] [address] 16475- 5948 Jan, Urinary tract infection, site not specified 599.0 [facility] [address] [place] [address] 91031- 8261 Jan, Urinary tract infection, site not specified 599.0 [place] [address] [place] [address] 14970- 0695 Jan, [facility] [address] [place] [address] 40381- 5261 Dec, Headache 784.0 [facility] [address] [place] [address] 80929- 2554 Dec, Urinary tract infection, site not specified 599.0 [facility] [address], [place] [address]- 5700 Dec, Urinary tract infection, site not specified 599.0 [facility] [address] 9009 Dec, Urinary tract infection, site not specified 599.0 [facility] [address] [place] [address] 08153- 0456 Nov, Unspecified sleep apnea 780.57 ; Encounter for long-term ( current) use of anticoagulants V58.61 ; Routine general medical examination at health care facility V70.0 and Arthritis of both knees 716.96 [facility] [address], [place] [address]- 2454 September, Cat bite of hand 882.0 and Rectal bleeding 569.3 [facility] [address] [place] [address] 53870- 3238 Aug, [facility] [address] [place] [address] 41419- 3267 Aug, [facility] [facility] [address] [place] [address] 36388- 0073 Jul, [facility] [place] [facility] [address], [place] [address]- 4594 Jul, [facility] [facility] [address], [place] [address]- 1181 Jul, [facility] [facility] [address], [place] [address]- 0732 Jul, [facility] [facility] [address] [place] [address] 57483- 8262 Jul, [facility] [place] [facility] [address] 7654 Jul, [facility] [facility] [address] [place] [address] 92735- 7508 Jul, [facility] [place] [facility] [address] [id number] [place] [address]- 5213 Jul, [facility] [place] [facility] [address] [id number] [place] [address]- 0266 May, [facility] [place] [facility] [address] [id number] [place] [address]- 3348 May, [facility] [place] [facility] [address] [id number] [place] [address]- 2016 May, [facility] [place] [facility] [address] [id number] [place] [address]- 5185 May, [facility] [place] [facility] [address] [id number] [place] [address]- 7683 May, [facility] [place] [facility] [address] [id number] [place] [address]- 5084 May, [facility] [place] [facility] [address] [id number] [place] [address]- 6637 May, [facility] [place] [facility] [address] [id number] [place] [address]- 6085 Mar, [facility] [place] [facility] [address] [id number] [place] [address]- 7722 Mar, [facility] [place] [facility] [address] [id number] [address]- 9912 08 Jan, 2013 [facility] [place] [facility] [address] [id number], [place] [address]- 2474 08 Sep, 2013 [facility] [place] [facility] [address] [id number] [place] [address]- 9869 08 Sep, 2013 [facility] [place] [facility] [address] [id number] [place] [address]- 4561 08 Jan, 2013 [facility] [place] [facility] [address] [id number] [place] [address]- 0034 05 Sep, 2013 [facility] [place] [facility] [address] [id number] [place] [address]- 3765 Jan, [facility] [place] [facility] [address] [id number] [place] [address]- 8585 Dec, [facility] [place] [facility] [address] [id number] [place] [address]- 9523 Dec, [facility] [place] [facility] [address] [id number] [place] [address]- 7469 Dec, [facility] [place] [facility] [address] [id number] [place] [address]- 2040 Dec, [facility] [place] [facility] [address] [id number] [place] [address]- 5054 Dec, [facility] [place] [facility] [address] [id number] [place] [address]- 3450 Dec, [facility] [place] [facility] [address] [id number] [place] [address]- 6264 Dec, [facility] [place] [facility] [address] [id number] [place] [address]- 2569 Dec, [facility] [place] [facility] [address] [id number] [place] [address]- 0223 Dec, [facility] [place] [facility] [address] [id number] [place] [address]- 2208 Dec, [facility] [place] [facility] [address] [id number] [place] [address]- 7892 Nov, [facility] [place] [facility] [address] [id number] [place] [address]- 3894 Nov, [facility] [place] [facility] [address] [id number] [place] [address]- 8738 September, [facility] [place] [facility] [address] [id number] [place] [address]- 8564 September, [facility] [place] [facility] [address] [id number] [place] [address]- 5967 September, [facility] [place] [facility] [address] [id number] [place] [address]- 2208 September, [facility] [place] [facility] [address] [id number] [place] [address]- 8312 Aug, [facility] [place] [facility] [address] [id number] [place] [address]- 5810 Aug, [facility] [place] [facility] [address] [id number] [place] [address]- 2005 Aug, [facility] [place] [facility] [address] [id number] [place] [address]- 2558 Aug, [facility] [place] [facility] [address] [id number] [place] [address]- 6412 Aug, [facility] [place] [facility] [address] [id number] [place] [address]- 3802 Aug, [facility] [place] [facility] [address] [id number] [place] [address]- 2740 Aug, [facility] [place] [facility] [address] [id number] [place] [address]- 4395 Aug, [facility] [place] [facility] [address] [id number] [place] [address]- 3779 Aug, [facility] [place] [facility] [address] [id number] [place] [address]- 8714 Aug, [facility] [place] [facility] [address] [id number] [place] [address]- 4718 Aug, [facility] [place] [facility] [address] [id number] [place] [address]- 8025 Aug, [facility] [place] [facility] [address] [id number] [place] [address]- 5492 Jul, [facility] [place] [facility] [address] [id number] [place] [address]- 9624 Jul, [facility] [place] [facility] [address] [id number] [place] [address]- 2227 19 Jul, 2013 [facility] [place] [facility] [address] [id number] [place]- 3764 Jul, [facility] [place] [facility] [address] [id number] [place] 9276 Jul, [facility] [place] [facility] [address] [id number] [place] [address]- 2456 Jul, [facility] [place] [facility] [address] [id number] [place] [address]- 3179 05 Jul, 2013 [facility] [place] [facility] [address] [id number] [place] [address]- 0462 05 Jul, 2013 [facility] [place] [facility] [address] [id number] [place] [address]- 2784 Jul, [facility] [place] [facility] [address] [id number] [place] [address]- 5729 Jul, [facility] [place] [facility] [address] [id number] [place] [address]- 2991 28 Jun, 2013 [facility] [place] [facility] [address] [id number] [place] [address]- 5131 28 Jun, 2013 [facility] [place] [facility] [address] [facility] [id number] [place] [address]- 6517 17 Jun, 2013 [facility] [place] [facility] [address] [id number] [place] [address]- 2536 17 Jun, 2013 [facility] [place] [facility] [address] [id number] [place] [address]- 3846 13 Jun, 2013 [facility] [place] [facility] [address] [id number] [place]- 1274 13 Jun, 2013 [facility] [place] [facility] [address] [facility] [id number] [place] 6946 13 Jun, 2013 [facility] [place] [facility] [address] [facility] [id number] [place]- 2275 Jun, [facility] [place] [facility] [address] [id number] [place] [address]- 3850 Jun, [facility] [place] [facility] [address] [id number] [place] [address]- 5689 Jun, [facility] [place] [facility] [address] [id number] [place] 6681 Jun, [facility] [place] [facility] [address] [id number] [place] [address]- 9154 Jun, [facility] [place] [facility] [address] [id number] [place] [address]- 3122 May, [facility] [place] [facility] [address] [id number] [place] [address]- 2767 May, [facility] [place] [facility] [address] [id number] [place] [address]- 9162 May, [facility] [place] [facility] [address] [id number] [place] [address]- 3784 May, [facility] [place] [facility] [address] [id number] [place] [address]- 2886 May, [facility] [place] [facility] [address] [id number] [place] [address]- 8544 May, [facility] [place] [facility] [address] [id number] [place] [address]- 3399 May, [facility] [place] [facility] [address] [id number] [place] [address]- 9747 May, [facility] [place] [facility] [address] [id number] [place] [address]- 6125 May, [facility] [place] [facility] [address] [id number] [place] [address]- 8568 May, [facility] [place] [facility] [address] [id number] [place] [address]- 1158 May, [facility] [place] [facility] [address] [id number] [place] [address]- 8046 08 May, 2013 [facility] [address] [id number] [place] [address]- 3313 May, [facility] [address] [id number] [place] [address]- 1255 May, [facility] [address] [id number] [place] [address]- 4568 May, [facility] [address] [id number] [place] [address]- 2798 Apr, [facility] [address] [id number] [place] [address] Apr, [facility] [address] [id number] [place] [address] Apr, [facility] [address] [id number] [place] [address] Apr, [facility] [address] [id number] [place] [address] Mar, [facility] [address] [id number] [place] [address] Mar, [facility] [address] [facility] [id number] [place] [address] Mar, [facility] [address] [id number] [place] [address] Mar, [facility] [address] [id number] [place] [address] Mar, [facility] [address] [id number] [place] [address] Mar, [facility] [address] [id number] [place] [address] Mar, [facility] [address] [id number] [place] [address] Mar, [facility] [place] [facility] [address] [id number] [place] [address] Mar, [facility] [place] [facility] [address] [id number] [place] [address] Mar, [facility] [place] [facility] [address] [id number] [place] [address] Mar, [facility] [place] [facility] [address] [id number] [place] [address]- [address] Mar, [facility] [place] [facility] [address] [id number] [place] [address] Feb, [facility] [place] [facility] [address] [id number] [place] [address]- 2014 18 Jan, 2013 [facility] [place] [facility] [address] [id number] [place] [address] 17 Jan, 2013 [facility] [place] [facility] [address] [id number] [place] [address]- [address] 06 Jan, 2013 [facility] [place] [facility] [address] [id number] [place] [address]- [address] 04 Jan, 2013 [facility] [place] [facility] [address] [id number], [place] [address] Jan, [facility] [place] [facility] [address] [id number], [place] [address] Dec, [facility] [place] [facility] [address] [id number], [place] [address] Dec, [facility] [place] [facility] [address] [id number] [place] [address]- [address] Dec, [facility] [place] [facility] [address] [id number] [place] [address] 16 Dec, 2012 [facility] [place] [facility] [address] [id number], [place] [address] Dec, [facility] [place] [facility] [address] [id number], [place] [address] Dec, [facility] [place] [facility] [address] [id number] [place] [address] Dec, [facility] [place] [facility] [address] [id number] [place] [address] Dec, [facility] [place] [facility] [address] [facility] [id number] [place] [address] Nov, [facility] [place] [facility] [address] [id number] [place] [address] Nov, [facility] [place] [facility] [address] [id number] [place] [address] Nov, [facility] [place] [facility] [address] [facility] [id number] [place] [address] Nov, [facility] [place] [facility] [address] [facility] [id number] [place] [address] Nov, [facility] [place] [facility] [address] [facility] [id number] [place] [address] Nov, [facility] [place] [facility] [address] [facility] [id number] [place] [address] Oct, [facility] [address] [id number] [id number] Oct, [facility] [address] [id number][place] [id number] Oct, [facility] [address] [id number][place] [id number] Oct, [facility] [address] [id number] [id number] Oct, [facility] [place] [facility] [address] [facility] [id number] [place] [address] Oct, [facility] [place] [facility] [address] [facility] [id number] [place] [address] Oct, [facility] [place] [facility] [address] [facility] [id number] [place] [address] Oct, [facility] [address] [id number] [place] [address] Oct, [facility] [place] [facility] [address] [id number] [place] [address] Oct, [facility] [place] [facility] [address] [id number] [place] [address] Oct, [facility] [place] [facility] [address] [id number] [place] [address] September, [facility] [place] [facility] [address] [id number] [place] [address] Aug, [facility] [place] [facility] [address] [id number] [place] [address] Aug, [facility] [place] [facility] [address] [id number] [place] [address] Aug, [facility] [place] [facility] [address] [id number] [place] [address] Aug, [facility] [place] [facility] [address] [id number] [place] [address] Jul, [facility] [place] [facility] [address] [id number] [place] [address] Jul, [facility] [place] [facility] [address] [id number] [place] [address] Jul, [facility] [place] [facility] [address] [id number], [place] [address] Jul, [facility] [place] [facility] [address] [id number] [place] [address] Jul, [facility] [place] [facility] [address] [id number] [place] [address] 2009 Jun, [facility] [place] [facility] [address] [id number] [place] [address] Jun, [facility] [place] [facility] [address] [id number] [place] [address] 11 Jun, 2012 [facility] [address] [id number] [place] [address] May, [facility] [address] [id number] [place] [address] 24 May, 2012 [facility] [address] [id number] [place] [address] May, [facility] [address] [id number] [place] [address] May, [facility] [address] [id number] [place] [address] May, [facility] [address] [id number] [place] [address] May, [facility] [address] [id number] [place] [address]68 18 Apr, 2012 [facility] [address] [id number] [place] [address] 18 Apr, 2012 [facility] [address] [id number] [place] [address] 13 Apr, 2012 [facility] [address] [id number] [place] [address]25 13 Apr, 2012 [facility] [address] [id number] [place] [address] 13 Apr, 2012 [facility] [address] [id number] [place] [address] 11 Apr, 2012 [facility] [address] [id number] [place] 11 Apr, 2012 [facility] [address] [id number] [place] [address] 4080 12 Mar, 2012 [facility] [address] [id number] [place] [address] Mar, [facility] [place] [facility] [address] [facility] [id number], [place] [address] Mar, [facility] [place] [facility] [address] [id number], [place] [address] Mar, [facility] [place] [facility] [address] [facility] [id number], [place] [address] Jan, [facility] [place] [facility] [id number], [place] [address] Jan, [facility] [place] [facility] [address] [facility] [id number], [place] [address] Jan, [facility] [place] [facility] [address] [facility] [id number], [place] [address] Jan, [facility] [id number] [id number] Dec, [facility] [place] [facility] [id number], [place] [address] Dec, [facility] [address] [id number] [id number] Dec, [facility] [place] [facility] [id number], [place] [address] Dec, [facility] [place] [facility] [address] [id number], [place] [address] Dec, [facility] [place] [facility] [address] [id number], [place] [address] Dec, [facility] [place] [facility] [address] [facility] [id number], [place] [address] Nov, [facility] [place] [facility] [address] [id number], [place] [address] Nov, [facility] [place] [facility] [address] [facility] [id number], [place] [address] Nov, IMMUNIZATIONS No Known Immunizations SOCIAL HISTORY Never Assessed REASON FOR VISIT Lab (walk-in) PLAN OF CARE VITAL SIGNS MEDICATIONS Unknown Medications RESULTS Name Result Date Reference Range TSH 2017-01-05 TSH 7.790 0.450-4.500 PROCEDURES Procedure Date Ordered Result Body Site [facility] Jan 05, 2017 PRINCE, ROUTINE* Jan 05, 2017 INSTRUCTIONS MEDICATIONS ADMINISTERED No Known Medications MEDICAL [...]
--- OUTSIDE RECORDS SUMMARY | 2017-09-05 01:02 | XMS REPORT | Continuity of Care Document ---
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 PAIN 08/19/2017 KAVYA PATRICK [employer]OR[employer] PLANT OPERATOR Ot Z68.43 BODY MASS INDEX (BMI) 50-59.9 , ADULT 08/19/2017 REAGAN MCNEILL MD, Ot Z51.81 ENCOUNTER FOR THERAPEUTIC DRUG LEVEL MON 08/19/2017 REAGAN MCNEILL MD, Ot Z79.01 HORTICULTURE INSTRUCTOR (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 OF 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 08/19/2017 REAGAN MCNEILL MD, Ot Z86.711 PERSONAL HISTORY OF PULMONARY EMBOLISM 08/19/2017 PAYAL VIGLI APRN Ot M54.2 CERVICALGIA 08/19/2017 PAYAL VIGIL APRN Ot Z53.29 PROC/TRTMT NOT CRD OUT BEC PT DECISION F 08/19/2017 REAGAN MCNEILL MD, Ot Z51.81 ENCOUNTER FOR THERAPEUTIC DRUG LEVEL MON 08/19/2017 REAGAN MCNEILL MD, Ot Z79.01 HORTICULTURE INSTRUCTOR (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 OF 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 08/19/2017 REAGAN MCNEILL MD Ot Z86.711 PERSONAL HISTORY OF PULMONARY EMBOLISM 08/19/2017 PAYAL VIGIL APRN Ot J98.11 ATELECTASIS 08/19/2017 PAYAL VIGIL APRN Ot Z87.442 PERSONAL HISTORY OF URINARY CALCULI 08/19/2017 MICHAEL WAGNER Ot I10 ESSENTIAL (PRIMARY) HYPERTENSION 08/19/2017 MICHAEL WAGNER Ot I25.10 ATHSCL HEART DISEASE OF [place] CORONARY 08/19/2017 MICHAEL WAGNER Ot R06.09 OTHER [...] PAIN IN THORACIC SPINE 08/19/2017 KAVYA PATRICK ABSORPTION PLANT OPERATOR Ot E66.01 MORBID (SEVERE) OBESITY DUE TO EXCESS CA 08/19/2017 KAVYA PATRICK ABSORPTION PLANT OPERATOR Ot R10.84 GENERALIZED ABDOMINAL PAIN 08/19/2017 KAVYA PATRICK ABSORPTION PLANT OPERATOR Ot Z68.43 BODY MASS INDEX (BMI) 50-59.9 , ADULT 08/19/2017 REAGAN MCNEILL MD, Ot Z51.81 ENCOUNTER FOR THERAPEUTIC DRUG LEVEL MON 08/19/2017 REAGAN MCNEILL MD, Ot Z79.01 FDC (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 OF 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 08/19/2017 REAGAN MCNEILL MD, Ot Z86.711 PERSONAL HISTORY OF PULMONARY EMBOLISM 08/19/2017 PAYAL VIGIL APRN Ot M54.2 CERVICALGIA 08/19/2017 PAYAL VIGIL APRN Ot Z53.29 PROC/TRTMT NOT CRD OUT BEC PT DECISION F 08/19/2017 REAGAN MCNEILL MD, Ot Z51.81 ENCOUNTER FOR THERAPEUTIC DRUG LEVEL MON 08/19/2017 REAGAN MCNEILL MD, Ot Z79.01 FDC (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 OF 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 08/19/2017 REAGAN MCNEILL MD, Ot Z86.711 PERSONAL HISTORY OF PULMONARY EMBOLISM 08/19/2017 PAYAL VIGIL APRN Ot J98.11 ATELECTASIS 08/19/2017 PAYAL VIGIL APRN Ot Z87.442 PERSONAL HISTORY OF URINARY CALCULI 08/19/2017 MICHAEL WAGNER Ot I10 ESSENTIAL (PRIMARY) HYPERTENSION 08/19/2017 MICHAEL WAGNER Ot I25.10 ATHSCL HEART DISEASE OF [place] CORONARY 08/19/2017 MICHAEL WAGNER Ot R06.09 OTHER FORMS OF DYSPNEA 08/19/2017 MICHAEL WAGNER Ot R07.89 OTHER CHEST PAIN 08/20/2017 REAGAN MCNEILL MD Ot E03.9 HYPOTHYROIDISM, UNSPECIFIED 08/20/2017 REAGAN MCNEILL MD Ot E66.9 OBESITY, UNSPECIFIED 08/20/2017 REAGAN MCNEILL MD Ot E78.5 HYPERLIPIDEMIA, UNSPECIFIED 08/20/2017 REAGAN MCNEILL MD Ot I10 ESSENTIAL (PRIMARY) HYPERTENSION 08/20/2017 REAGAN MCNEILL MD Ot I25.110 ATHSCL HEART DISEASE OF [place] COR ART W 08/20/2017 REAGAN MCNEILL MD Ot I77.1 STRICTURE OF ARTERY 08/20/2017 REAGAN MCNEILL MD, Ot J45.909 UNSPECIFIED ASTHMA, UNCOMPLICATED 08/20/2017 REAGAN MCNEILL MD Ot R82.90 UNSPECIFIED ABNORMAL FINDINGS IN URINE 08/20/2017 REAGAN MCNEILL MD Ot Z68.43 BODY MASS INDEX (BMI) 50-59.9 , ADULT 08/20/2017 REAGAN MCNEILL MD Ot Z79.01 HORTICULTURE INSTRUCTOR (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 OF 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 08/20/2017 REAGAN MCNEILL MD Ot Z86.711 PERSONAL HISTORY OF PULMONARY EMBOLISM 08/20/2017 REAGAN MCNEILL MD, Ot Z86.718 PERSONAL HISTORY OF OTHER VENOUS THROMBO 08/20/2017 Ot 723.1 CERVICALGIA 08/20/2017 Ot V45.4 [...] WAGNER Ot 786.50 CHEST PAIN NOS 08/20/2017 CHAS RODARTE DO Ot 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 08/20/2017 CHAS RODARTE DO Ot 625.9 FEM GENITAL SYMPTOMS NOS 08/20/2017 CHAS RODARTE DO Ot 626.8 MENSTRUAL DISORDER NEC 08/20/2017 CHAS RODARTE DO Ot 627.1 POSTMENOPAUSAL BLEEDING 08/20/2017 CHAS RODARTE DO Ot V72.84 EXAM PRE-OPERATIVE NOS 08/20/2017 CHAS RODARTE DO Ot V74.8 SCREEN-BACTERIAL DIS NEC 08/20/2017 CHAS RODARTE DO Ot 789.03 ABDOMINAL PAIN, RIGHT LOWER QUADRANT 08/20/2017 CHARLES FREED Ot 729.5 PAIN IN LIMB 08/20/2017 CATERINA SHAH DO Ot 278.1 LOCALIZED ADIPOSITY 08/20/2017 CATERINA SHAH DO Danielle Ot 493.90 ASTHMA, UNSPECIFIED 08/20/2017 CATERINA SHAH DO Danielle Ot 786.09 RESPIRATORY ABNORM NEC 08/20/2017 BALDEV LITTLEJOHN DO Ot 569.3 RECTAL ANAL HEMORRHAGE 08/20/2017 BALDEV LITTLEJOHN DO Ot V72.84 EXAM PRE-OPERATIVE NOS 08/20/2017 CAYDEN CHAS MOYA S Ot 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 08/20/2017 CHASTITYCHAS JOHNSON DO S Ot 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 ENDOMETRIAL HYPERPLASIA WITHOUT 08/20/2017 CHASTITYCHAS JOHNSON DO S Ot V25.42 IUD SURVEILLANCE 08/20/2017 CHASTITYCHAS JOHNSON DO S Ot R10.2 PELVIC AND PERINEAL PAIN 08/20/2017 BALDEV LITTLEJOHN DO Ot R10.2 PELVIC AND PERINEAL PAIN 08/20/2017 BALDEV LITTLEJOHN DO Ot R10.10 UPPER ABDOMINAL PAIN, UNSPECIFIED 08/20/2017 BALDEV LITTLEJOHN DO Ot Z01.818 ENCOUNTER FOR OTHER PREPROCEDURAL EXAMIN 08/20/2017 CHASTITYCHAS JOHNSON DO S Ot D25.9 LEIOMYOMA OF UTERUS, UNSPECIFIED 08/20/2017 CAYDEN CHAS MOYA Ot Z01.812 ENCOUNTER FOR PREPROCEDURAL LABORATORY E 08/20/2017 CHASTITYCHAS JOHNSON DO Ot Z11.2 ENCOUNTER FOR SCREENING FOR OTHER BACTER 08/20/2017 CHEN INFANTE APRN Ot J06.9 ACUTE UPPER RESPIRATORY INFECTION, UNSPE 08/20/2017 MIGDALIA JIMENEZ DO Ot 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 08/20/2017 MIGDALIA JIMENEZ DO Ot E03.9 HYPOTHYROIDISM, UNSPECIFIED 08/20/2017 MIGDALIA JIMENEZ DO Ot Z86.010 PERSONAL HISTORY OF COLONIC POLYPS 08/20/2017 PAYAL VIGIL ABSORPTION PLANT OPERATOR Ot M54.6 PAIN IN THORACIC SPINE 08/20/2017 KAVYA PATRICK ABSORPTION PLANT OPERATOR Ot E66.01 MORBID (SEVERE) OBESITY DUE TO EXCESS CA 08/20/2017 KAVYA PATRICK ABSORPTION PLANT OPERATOR Ot R10.84 GENERALIZED ABDOMINAL PAIN 08/20/2017 KAVYA PATRICK ABSORPTION PLANT OPERATOR Ot Z68.43 BODY MASS INDEX (BMI) 50-59.9 , ADULT 08/20/2017 REAGAN MCNEILL MD, Ot Z51.81 ENCOUNTER FOR THERAPEUTIC DRUG LEVEL MON 08/20/2017 REAGAN MCNEILL MD, Ot Z79.01 FDC (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 OF 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 08/20/2017 REAGAN MCNEILL MD, Ot Z86.711 PERSONAL HISTORY OF PULMONARY EMBOLISM 08/20/2017 PAYAL VIGIL APRN Ot M54.2 CERVICALGIA 08/20/2017 PAYAL VIGIL APRN Ot Z53.29 PROC/TRTMT NOT CRD OUT BEC PT DECISION F 08/20/2017 REAGAN MCNEILL MD, Ot Z51.81 ENCOUNTER FOR THERAPEUTIC DRUG LEVEL MON 08/20/2017 REAGAN MCNEILL MD, Ot Z79.01 HORTICULTURE INSTRUCTOR (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 OF 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 08/20/2017 REAGAN MCNEILL MD, Ot Z86.711 PERSONAL HISTORY OF PULMONARY EMBOLISM 08/20/2017 PAYAL VIGIL APRN Ot J98.11 ATELECTASIS 08/20/2017 PAYAL VIGIL APRN Ot Z87.442 PERSONAL HISTORY OF URINARY CALCULI 08/20/2017 MICHAEL WAGNER Ot I10 ESSENTIAL (PRIMARY) HYPERTENSION 08/20/2017 MICHAEL WAGNER Ot I25.10 ATHSCL HEART DISEASE OF [place] CORONARY 08/20/2017 MICHAEL WAGNER Ot R06.09 OTHER [...] Z Ot V58.61 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S,LT,CURRENT USE 08/20/2017 GARETT NAM, ACE Z Ot V58.83 ENCOUNTER [...] WAGNER Ot 786.50 CHEST PAIN NOS 08/20/2017 CHAS RODARTE DO Ot 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 08/20/2017 CHAS RODARTE DO Ot 625.9 FEM GENITAL SYMPTOMS NOS 08/20/2017 CHAS RODARTE DO Ot 626.8 MENSTRUAL DISORDER NEC 08/20/2017 CHAS RODARTE DO Ot 627.1 POSTMENOPAUSAL BLEEDING 08/20/2017 CHAS RODARTE DO Ot V72.84 EXAM PRE-OPERATIVE NOS 08/20/2017 CHAS RODARTE DO Ot V74.8 SCREEN-BACTERIAL DIS NEC 08/20/2017 CHAS RODARTE DO S Ot 789.03 ABDOMINAL PAIN, RIGHT LOWER QUADRANT 08/20/2017 CHARLES FREED Ot 729.5 PAIN IN LIMB 08/20/2017 CATERINA SHAH DO Ot 278.1 LOCALIZED ADIPOSITY 08/20/2017 CATERINA SHAH DO Ot 493.90 ASTHMA, UNSPECIFIED 08/20/2017 CATERINA SHAH DO Ot 786.09 RESPIRATORY ABNORM NEC 08/20/2017 BALDEV LITTLEJOHN DO Ot 569.3 RECTAL ANAL HEMORRHAGE 08/20/2017 LITTLEJOHNBALDEV ARMAS DO D Ot V72.84 EXAM PRE-OPERATIVE NOS 08/20/2017 CAYDEN MOYA CHAS Patel Ot 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 08/20/2017 CAYDEN MOYA CHAS S Ot 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 ENDOMETRIAL HYPERPLASIA WITHOUT 08/20/2017 CAYDEN MOYA CHAS Patel Ot V25.42 IUD SURVEILLANCE 08/20/2017 CAYDEN MOYA CHAS Patel Ot R10.2 PELVIC AND PERINEAL PAIN 08/20/2017 BALDEV LITTLEJOHN DO Ot R10.2 PELVIC AND PERINEAL PAIN 08/20/2017 LITTLEJOHNBALDEV ARMAS DO Ot R10.10 UPPER ABDOMINAL PAIN, UNSPECIFIED 08/20/2017 LITTLEJOHNBALDEV ARMAS DO Ot Z01.818 ENCOUNTER FOR OTHER PREPROCEDURAL EXAMIN 08/20/2017 CAYDEN MOYA CHAS Patel Ot D25.9 LEIOMYOMA OF UTERUS, UNSPECIFIED 08/20/2017 CHASTITYALEX CHAS Patel Ot Z01.812 ENCOUNTER FOR PREPROCEDURAL LABORATORY E 08/20/2017 CAYDEN MOYA CHAS Patel Ot Z11.2 ENCOUNTER FOR SCREENING FOR OTHER BACTER 08/20/2017 CHEN INFANTE ABSORPTION PLANT OPERATOR Ot J06.9 ACUTE UPPER RESPIRATORY INFECTION, UNSPE 08/20/2017 MIGDALIA JIMENEZ DO Ot 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 08/20/2017 MIGDALIA JIMENEZ DO Ot E03.9 HYPOTHYROIDISM, UNSPECIFIED 08/20/2017 MIGDALIA JIMENEZ DO Ot Z86.010 PERSONAL HISTORY OF COLONIC POLYPS 08/20/2017 PAYAL VIGIL ABSORPTION PLANT OPERATOR Ot M54.6 PAIN IN THORACIC SPINE 08/20/2017 KAVYA PATRICK ABSORPTION PLANT OPERATOR Ot E66.01 MORBID (SEVERE) OBESITY DUE TO EXCESS CA 08/20/2017 KAVYA PATRICK APRN Ot R10.84 GENERALIZED ABDOMINAL PAIN 08/20/2017 KAVYA PATRICK ABSORPTION PLANT OPERATOR Ot Z68.43 BODY MASS INDEX (BMI) 50-59.9 , ADULT 08/20/2017 CHARITO NAM, REAGAN Balderas Ot Z51.81 ENCOUNTER FOR THERAPEUTIC DRUG LEVEL MON 08/20/2017 REAGAN MCNEILL MD Ot Z79.01 FDC (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 OF 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 08/20/2017 REAGAN MCNEILL MD, Ot Z86.711 PERSONAL HISTORY OF PULMONARY EMBOLISM 08/20/2017 PAYAL VIGIL APRN Ot M54.2 CERVICALGIA 08/20/2017 PAYAL VIGIL APRN Ot Z53.29 PROC/TRTMT NOT CRD OUT BEC PT DECISION F 08/20/2017 REAGAN MCNEILL MD, Ot Z51.81 ENCOUNTER FOR THERAPEUTIC DRUG LEVEL MON 08/20/2017 REAGAN MCNEILL MD, Ot Z79.01 FDC (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 OF 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 08/20/2017 REAGAN MCNEILL MD, Ot Z86.711 PERSONAL HISTORY OF PULMONARY EMBOLISM 08/20/2017 PAYAL VIGIL APRN Ot J98.11 ATELECTASIS 08/20/2017 PAYAL VIGIL APRN Ot Z87.442 PERSONAL HISTORY OF URINARY CALCULI 08/20/2017 MICHAEL WAGNER Ot I10 ESSENTIAL (PRIMARY) HYPERTENSION 08/20/2017 MICHAEL WAGNER Ot I25.10 ATHSCL HEART DISEASE OF [place] CORONARY 08/20/2017 MICHAEL WAGNER Ot R06.09 OTHER [...] FREED Ot 610.3 FIBROSCLEROSIS OF BREAST 08/20/2017 ACE BAJWA MD Ot V58.61 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S,LT,CURRENT USE 08/20/2017 SUWAN MD, ACE Z Ot V58.83 ENCOUNTER [...] WAGNER Ot 786.50 CHEST PAIN NOS 08/20/2017 CHAS RODARTE DO Ot 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 08/20/2017 CHAS RODARTE DO Ot 625.9 FEM GENITAL SYMPTOMS NOS 08/20/2017 CHAS RODARTE DO Ot 626.8 MENSTRUAL DISORDER NEC 08/20/2017 CHAS RODARTE DO Ot 627.1 POSTMENOPAUSAL BLEEDING 08/20/2017 CHAS RODARTE DO Ot V72.84 EXAM PRE-OPERATIVE NOS 08/20/2017 CHAS RODARTE DO Ot V74.8 SCREEN-BACTERIAL DIS NEC 08/20/2017 CHAS RODARTE DO Ot 789.03 ABDOMINAL PAIN, RIGHT LOWER QUADRANT 08/20/2017 CHARLES FREED Ot 729.5 PAIN IN LIMB 08/20/2017 CATERINA SHAH DO Ot 278.1 LOCALIZED ADIPOSITY 08/20/2017 CATERINA SHAH DO Ot 493.90 ASTHMA, UNSPECIFIED 08/20/2017 CATERINA SHAH DO Ot 786.09 RESPIRATORY ABNORM NEC 08/20/2017 BALDEV LITTLEJOHN DO Ot 569.3 RECTAL ANAL HEMORRHAGE 08/20/2017 BALDEV LITTLEJOHN DO Ot V72.84 EXAM PRE-OPERATIVE NOS 08/20/2017 CHAS RODARTE DO Ot 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 08/20/2017 CHAS RODARTE DO Ot 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 ENDOMETRIAL HYPERPLASIA WITHOUT 08/20/2017 CHAS RODARTE DO Ot V25.42 IUD SURVEILLANCE 08/20/2017 CAYDEN MOYA CHAS Patel Ot R10.2 PELVIC AND PERINEAL PAIN 08/20/2017 BALDEV LITTLEJOHN DO Ot R10.2 PELVIC AND PERINEAL PAIN 08/20/2017 BALDEV LITTLEJOHN DO Ot R10.10 UPPER ABDOMINAL PAIN, UNSPECIFIED 08/20/2017 BALDEV LITTLEJOHN DO Ot Z01.818 ENCOUNTER FOR OTHER PREPROCEDURAL EXAMIN 08/20/2017 CAYDEN MOYA CHAS Patel Ot D25.9 LEIOMYOMA OF UTERUS, UNSPECIFIED 08/20/2017 CAYDEN MOYA CHAS Patel Ot Z01.812 ENCOUNTER FOR PREPROCEDURAL LABORATORY E 08/20/2017 CAYDEN MOYA CHAS Patel Ot Z11.2 ENCOUNTER FOR SCREENING FOR OTHER BACTER 08/20/2017 CHEN INFANTE APRN Ot J06.9 ACUTE UPPER RESPIRATORY INFECTION, UNSPE 08/20/2017 MIGDALIA JIMENEZ DO Ot 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 08/20/2017 MIGDALIA JIMENEZ DO Ot E03.9 HYPOTHYROIDISM, UNSPECIFIED 08/20/2017 MIGDALIA JIMENEZ DO Ot Z86.010 PERSONAL HISTORY OF COLONIC POLYPS 08/20/2017 PAYAL VIGIL ABSORPTION PLANT OPERATOR Ot M54.6 PAIN IN THORACIC SPINE 08/20/2017 KAVYA PATRICK ABSORPTION PLANT OPERATOR Ot E66.01 MORBID (SEVERE) OBESITY DUE TO EXCESS CA 08/20/2017 KAVYA PATRICK ABSORPTION PLANT OPERATOR Ot R10.84 GENERALIZED ABDOMINAL PAIN 08/20/2017 KAVYA PATRICK ABSORPTION PLANT OPERATOR Ot Z68.43 BODY MASS INDEX (BMI) 50-59.9 , ADULT 08/20/2017 REAGAN MCNEILL MD Ot Z51.81 ENCOUNTER FOR THERAPEUTIC DRUG LEVEL MON 08/20/2017 REAGAN MCNEILL MD Ot Z79.01 HORTICULTURE INSTRUCTOR (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 OF 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 08/20/2017 REAGAN MCNEILL MD Ot Z86.711 PERSONAL HISTORY OF PULMONARY EMBOLISM 08/20/2017 PAYAL VIGIL APRN Ot M54.2 CERVICALGIA 08/20/2017 PAYAL VIGIL APRN Ot Z53.29 PROC/TRTMT NOT CRD OUT BEC PT DECISION F 08/20/2017 REAGAN MCNEILL MD Ot Z51.81 ENCOUNTER FOR THERAPEUTIC DRUG LEVEL MON 08/20/2017 REAGAN MCNEILL MD Ot Z79.01 HORTICULTURE INSTRUCTOR (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 OF 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 08/20/2017 REAGAN MCNEILL MD Ot Z86.711 PERSONAL HISTORY OF PULMONARY EMBOLISM 08/20/2017 PAYAL VIGIL APRN Ot J98.11 ATELECTASIS 08/20/2017 PAYAL VIGIL APRN Ot Z87.442 PERSONAL HISTORY OF URINARY CALCULI 08/20/2017 MICHAEL WAGNER Ot I10 ESSENTIAL (PRIMARY) HYPERTENSION 08/20/2017 MICHAEL WAGNER Ot I25.10 ATHSCL HEART DISEASE OF [place] CORONARY 08/20/2017 MICHAEL WAGNER Ot R06.09 OTHER FORMS OF DYSPNEA 08/20/2017 MICHAEL WAGNER Ot R07.89 OTHER CHEST PAIN 08/20/2017 REAGAN MCNEILL MD Ot E78.5 HYPERLIPIDEMIA, UNSPECIFIED 08/20/2017 REAGAN MCNEILL MD Ot I10 ESSENTIAL (PRIMARY) HYPERTENSION 08/20/2017 REAGAN MCNEILL MD Ot I25.110 ATHSCL HEART DISEASE OF [place] COR ART W 08/20/2017 REAGAN MCNEILL MD Ot I77.1 STRICTURE OF ARTERY 08/21/2017 Ot 723.1 CERVICALGIA 08/21/2017 Ot V45.4 ARTHRODESIS STATUS 08/21/2017 Ot 723.0 CERVICAL SPINAL STENOSIS 08/21/2017 Ot V64.3 NO PROC FOR REASONS NEC 08/21/2017 Ot 723.1 CERVICALGIA 08/21/2017 Ot 780.4 DIZZINESS AND GIDDINESS 08/21/2017 Ot 368.9 VISUAL DISTURBANCE NOS 08/21/2017 Ot 723.1 CERVICALGIA 08/21/2017 Ot 780.4 DIZZINESS AND GIDDINESS 08/21/2017 Ot V81.5 SCREEN FOR NEPHROPATHY 08/21/2017 CHARLES FREED Ot 611.71 MASTODYNIA 08/21/2017 CHARLES FREED Ot 610.3 FIBROSCLEROSIS OF BREAST 08/21/2017 GARETT NAM, ACE Z Ot V58.61 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S,LT,CURRENT USE 08/21/2017 GARETT NAM, ACE Z Ot V58.83 ENCOUNTER FOR THERAPEUTIC DRUG MONITORIN 08/21/2017 CHARLES FREED Ot 397.0 TRICUSPID VALVE DISEASE 08/21/2017 CHARLES FREED Ot 424.0 MITRAL VALVE DISORDER 08/21/2017 CHARLES FREED Ot 786.05 SHORTNESS OF BREATH 08/21/2017 CHARLES FREED Ot V58.61 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S,LT,CURRENT USE 08/21/2017 CHARLES FREED Ot 486 PNEUMONIA, ORGANISM NOS 08/21/2017 MICHAEL WAGNER Ot 278.1 LOCALIZED ADIPOSITY 08/21/2017 MICHAEL WAGNER Ot 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 ATHEROSCLER NOS TYPE VESSEL, NATIV 08/21/2017 MICHAEL WAGNER Ot 496 CHR AIRWAY OBSTRUCT NEC 08/21/2017 MICHAEL WAGNER Ot 786.09 RESPIRATORY ABNORM NEC 08/21/2017 MICHAEL WAGNER Ot 786.50 CHEST PAIN NOS 08/21/2017 CHAS RODARTE DO Ot 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 08/21/2017 CHAS RODARTE DO Ot 625.9 FEM GENITAL SYMPTOMS NOS 08/21/2017 CHAS RODARTE DO Ot 626.8 MENSTRUAL DISORDER NEC 08/21/2017 CHAS RODARTE DO Ot 627.1 POSTMENOPAUSAL BLEEDING 08/21/2017 CHAS RODARTE DO Ot V72.84 EXAM PRE-OPERATIVE NOS 08/21/2017 CHAS RODARTE DO Ot V74.8 SCREEN-BACTERIAL DIS NEC 08/21/2017 CHAS RODARTE DO Ot 789.03 ABDOMINAL PAIN, RIGHT LOWER QUADRANT 08/21/2017 CHARLES FREED Ot 729.5 PAIN IN LIMB 08/21/2017 CATERINA SHAH DO Ot 278.1 LOCALIZED ADIPOSITY 08/21/2017 CATERINA SHAH DO Ot 493.90 ASTHMA, UNSPECIFIED 08/21/2017 CATERINA SHAH DO Ot 786.09 RESPIRATORY ABNORM NEC 08/21/2017 BALDEV LITTLEJOHN DO Ot 569.3 RECTAL ANAL HEMORRHAGE 08/21/2017 BALDEV LITTLEJOHN DO Ot V72.84 EXAM PRE-OPERATIVE NOS 08/21/2017 CHASTITYCHAS JOHNSON DO Ot 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 08/21/2017 CHASTITYCHAS JOHNSON DO Ot 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 ENDOMETRIAL HYPERPLASIA WITHOUT 08/21/2017 CHASTITYCHAS JOHNSON DO Ot V25.42 IUD SURVEILLANCE 08/21/2017 CAYDEN CHAS MOYA Ot R10.2 PELVIC AND PERINEAL PAIN 08/21/2017 BALDEV LITTLEJOHN DO Ot R10.2 PELVIC AND PERINEAL PAIN 08/21/2017 BALDEV LITTLEJOHN DO Ot R10.10 UPPER ABDOMINAL PAIN, UNSPECIFIED 08/21/2017 BALDEV LITTLEJOHN DO Ot Z01.818 ENCOUNTER FOR OTHER PREPROCEDURAL EXAMIN 08/21/2017 CHASTITYCHAS JOHNSON DO Ot D25.9 LEIOMYOMA OF UTERUS, UNSPECIFIED 08/21/2017 CHASTITYCHAS OJHNSON DO Ot Z01.812 ENCOUNTER FOR PREPROCEDURAL LABORATORY E 08/21/2017 CHASTITYCHAS JOHNSON DO Ot Z11.2 ENCOUNTER FOR SCREENING FOR OTHER BACTER 08/21/2017 CHEN INFANTE APRN Ot J06.9 ACUTE UPPER RESPIRATORY INFECTION, UNSPE 08/21/2017 MIGDALIA JIMENEZ DO Ot 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 08/21/2017 MIGDALIA JIMENEZ DO Ot E03.9 HYPOTHYROIDISM, UNSPECIFIED 08/21/2017 MIGDALIA JIMENEZ DO Ot Z86.010 PERSONAL HISTORY OF COLONIC POLYPS 08/21/2017 PAYAL VIGIL ABSORPTION PLANT OPERATOR Ot M54.6 PAIN IN THORACIC SPINE 08/21/2017 KAVYA PATRICK ABSORPTION PLANT OPERATOR Ot E66.01 MORBID (SEVERE) OBESITY DUE TO EXCESS CA 08/21/2017 KAVYA PATRICK APRN Ot R10.84 GENERALIZED ABDOMINAL PAIN 08/21/2017 KAVYA PATRICK APRN Ot Z68.43 BODY MASS INDEX (BMI) 50-59.9 , ADULT 08/21/2017 REAGAN MCNEILL MD Ot Z51.81 ENCOUNTER FOR THERAPEUTIC DRUG LEVEL MON 08/21/2017 REAGAN MCNEILL MD Ot Z79.01 HORTICULTURE INSTRUCTOR (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 OF 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 08/21/2017 REAGAN MCNEILL MD Ot Z86.711 PERSONAL HISTORY OF PULMONARY EMBOLISM 08/21/2017 PAYAL VIGIL APRN Ot M54.2 CERVICALGIA 08/21/2017 PAYAL VIGIL APRN Ot Z53.29 PROC/TRTMT NOT CRD OUT BEC PT DECISION F 08/21/2017 REAGAN MCNEILL MD, Ot Z51.81 ENCOUNTER FOR THERAPEUTIC DRUG LEVEL MON 08/21/2017 REAGAN MCNEILL MD, Ot Z79.01 FDC (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 OF 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 08/21/2017 REAGAN MCNEILL MD, Ot Z86.711 PERSONAL HISTORY OF PULMONARY EMBOLISM 08/21/2017 PAYAL VIGIL APRN Ot J98.11 ATELECTASIS 08/21/2017 PAYAL VIGIL APRN Ot Z87.442 PERSONAL HISTORY OF URINARY CALCULI 08/21/2017 MICHAEL WAGNER Ot I10 ESSENTIAL (PRIMARY) HYPERTENSION 08/21/2017 MICHAEL WAGNER Ot I25.10 ATHSCL HEART DISEASE OF [place] CORONARY 08/21/2017 MICHAEL WAGNER Ot R06.09 OTHER FORMS OF DYSPNEA 08/21/2017 MICHAEL WAGNER Ot R07.89 OTHER CHEST PAIN 08/21/2017 REAGAN MCNEILL MD, Ot E03.9 HYPOTHYROIDISM, UNSPECIFIED 08/21/2017 REAGAN MCNEILL MD, Ot E66.9 OBESITY, UNSPECIFIED 08/21/2017 REAGAN MCNEILL MD, Ot E78.5 HYPERLIPIDEMIA, UNSPECIFIED 08/21/2017 REAGAN MCNEILL MD, Ot I10 ESSENTIAL (PRIMARY) HYPERTENSION 08/21/2017 REAGAN MCNEILL MD Ot I25.110 ATHSCL HEART DISEASE OF [place] COR ART W 08/21/2017 REAGAN MCNEILL MD Ot I77.1 STRICTURE OF ARTERY 08/21/2017 REAGAN MCNEILL MD, Ot J45.909 UNSPECIFIED ASTHMA, UNCOMPLICATED 08/21/2017 REAGAN MCNEILL MD, Ot Z68.43 BODY MASS INDEX (BMI) 50-59.9 , ADULT 08/21/2017 REAGAN MCNEILL MD, Ot Z79.01 HORTICULTURE INSTRUCTOR (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 OF 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 08/21/2017 REAGAN MCNEILL MD, Ot Z86.711 PERSONAL HISTORY OF PULMONARY EMBOLISM 08/21/2017 CHARITO NAM, REAGAN Balderas Ot Z86.718 PERSONAL HISTORY OF OTHER VENOUS THROMBO 08/24/2017 SHALOM RAMÍREZ APRN Ot E03.9 HYPOTHYROIDISM, UNSPECIFIED 08/24/2017 SHALOM RAMÍREZ APRN Ot E66.01 MORBID (SEVERE) OBESITY DUE TO EXCESS CA 08/24/2017 SHALOM RAMÍREZ APRN Ot E78.00 PURE HYPERCHOLESTEROLEMIA, UNSPECIFIED 08/24/2017 SHALOM RAMÍREZ APRN Ot G47.30 SLEEP APNEA, UNSPECIFIED 08/24/2017 SHALOM RAMÍREZ APRN Ot I10 ESSENTIAL (PRIMARY) HYPERTENSION 08/24/2017 SHALOM RAMÍREZ APRN Ot I20.8 OTHER FORMS OF ANGINA PECTORIS 08/24/2017 SHALOM RAMÍREZ APRN Ot I25.10 ATHSCL HEART DISEASE OF [place] CORONARY 08/24/2017 SHALMO RAMÍREZ APRN Ot I73.9 PERIPHERAL VASCULAR DISEASE, UNSPECIFIED 08/24/2017 SHALOM RAMÍREZ APRN, Ot J44.9 CHRONIC OBSTRUCTIVE PULMONARY DISEASE, U 08/24/2017 SHALOM RAMÍREZ APRN Ot K21.9 GASTRO-ESOPHAGEAL REFLUX DISEASE WITHOUT 08/24/2017 SHALOM RAMÍREZ APRN Ot R07.2 PRECORDIAL PAIN 08/24/2017 SHALOM RAMÍREZ APRN Ot Z68.43 BODY MASS INDEX (BMI) 50-59.9 , ADULT 08/24/2017 SHALOM RAMÍREZ APRN Ot Z79.01 FDC (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 OF 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 08/24/2017 SHALOM RAMÍREZ APRN Ot Z79.02 FDC (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 OF ANTITHROMBOTI 08/24/2017 SHALOM RAMÍREZ APRN Ot Z79.51 FDC (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 OF INHALED STERO 08/24/2017 SHALOM RAMÍREZ APRN Ot Z79.82 FDC (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 OF ASPIRIN 08/24/2017 SHALOM RAMÍREZ APRN Ot Z80.0 FAMILY HISTORY OF MALIGNANT NEOPLASM OF 08/24/2017 SHALOM RAMÍREZ APRN Ot Z82.49 FAMILY HX OF ISCHEM HEART DIS AND OTH DI 08/24/2017 SHALOM RAMÍREZ APRN Ot Z85.038 PERSONAL HISTORY OF MALIGNANT NEOPLASM O 08/24/2017 SHALOM RAMÍREZ APRN Ot Z86.718 PERSONAL HISTORY OF OTHER VENOUS THROMBO 08/24/2017 SHALOM RAMÍREZ APRN Ot Z87.01 PERSONAL HISTORY OF PNEUMONIA (RECURRENT 08/24/2017 SHALOM RAMÍREZ APRN Ot Z87.442 PERSONAL HISTORY OF URINARY CALCULI 08/24/2017 SHALOM RAMÍREZ APRN Ot Z87.448 PERSONAL HISTORY OF OTHER DISEASES OF UR 08/24/2017 SHALOM RAMÍREZ APRN Ot Z88.0 ALLERGY STATUS TO PENICILLIN 08/24/2017 SHALOM RAMÍREZ APRN Ot Z88.8 ALLERGY STATUS TO OTH DRUG/MEDS/BIOL SUB 08/24/2017 SHALOM RAMÍREZ APRN Ot Z90.49 ACQUIRED ABSENCE OF OTHER SPECIFIED PART 08/24/2017 SHALOM RAMÍREZ APRN Ot Z90.710 ACQUIRED ABSENCE OF BOTH CERVIX AND UTER 08/24/2017 SHALOM RAMÍREZ APRN Ot Z90.89 ACQUIRED ABSENCE OF OTHER ORGANS 08/24/2017 SHALOM RAMÍREZ APRN Ot Z91.048 OTHER NONMEDICINAL SUBSTANCE ALLERGY STA 08/24/2017 SHALOM RAMÍREZ APRN Ot Z97.5 PRESENCE OF (INTRAUTERINE) CONTRACEPTIVE 08/24/2017 REAGAN MCNEILL MD Ot E03.9 HYPOTHYROIDISM, UNSPECIFIED 08/24/2017 REAGAN MCNEILL MD Ot E66.9 OBESITY, UNSPECIFIED 08/24/2017 REAGAN MCNEILL MD Ot E78.5 HYPERLIPIDEMIA, UNSPECIFIED 08/24/2017 REAGAN MCNEILL MD Ot I10 ESSENTIAL (PRIMARY) HYPERTENSION 08/24/2017 REAGAN MCNEILL MD Ot I25.110 ATHSCL HEART DISEASE OF [place] COR ART W 08/24/2017 REAGAN MCNEILL MD Ot I77.1 STRICTURE OF ARTERY 08/24/2017 REAGAN MCNEILL MD Ot J45.909 UNSPECIFIED ASTHMA, UNCOMPLICATED 08/24/2017 REAGAN MCNEILL MD Ot R82.90 UNSPECIFIED ABNORMAL FINDINGS IN URINE 08/24/2017 REAGAN MCNEILL MD Ot Z68.43 BODY MASS INDEX (BMI) 50-59.9 , ADULT 08/24/2017 REAGAN MCNEILL MD Ot Z79.01 FDC (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 OF 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 08/24/2017 REAGAN MCNEILL MD Ot Z86.711 PERSONAL HISTORY OF PULMONARY EMBOLISM 08/24/2017 REAGAN MCNEILL MD Ot Z86.718 PERSONAL HISTORY OF OTHER VENOUS THROMBO 08/26/2017 REAGAN MCNEILL MD Ot E03.9 HYPOTHYROIDISM, UNSPECIFIED 08/26/2017 REAGAN MCNEILL MD Ot E66.9 OBESITY, UNSPECIFIED 08/26/2017 REAGAN MCNEILL MD Ot E78.5 HYPERLIPIDEMIA, UNSPECIFIED 08/26/2017 REAGAN MCNEILL MD Ot I10 ESSENTIAL (PRIMARY) HYPERTENSION 08/26/2017 REAGAN MCNEILL MD Ot I25.110 ATHSCL HEART DISEASE OF [place] COR ART W 08/26/2017 REAGNA MCNEILL MD Ot I77.1 STRICTURE OF ARTERY 08/26/2017 REAGAN MCNEILL MD, Ot J45.909 UNSPECIFIED ASTHMA, UNCOMPLICATED 08/26/2017 REAGAN MCNEILL MD Ot R82.90 UNSPECIFIED ABNORMAL FINDINGS IN URINE 08/26/2017 REAGAN MCNEILL MD Ot Z68.43 BODY MASS INDEX (BMI) 50-59.9 , ADULT 08/26/2017 REAGAN MCNEILL MD Ot Z79.01 HORTICULTURE INSTRUCTOR (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 OF 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 08/26/2017 REAGAN MCNEILL MD Ot Z86.711 PERSONAL HISTORY OF PULMONARY EMBOLISM 08/26/2017 REAGAN MCNEILL MD Ot Z86.718 PERSONAL HISTORY OF OTHER VENOUS THROMBO 08/28/2017 MICHAEL WAGNER Ot I10 ESSENTIAL (PRIMARY) HYPERTENSION 08/28/2017 MICHAEL WAGNER Ot I25.10 ATHSCL HEART DISEASE OF [place] CORONARY 08/28/2017 MICHAEL WAGNER Ot R06.09 OTHER FORMS OF DYSPNEA 08/28/2017 MICHAEL WAGNER Ot R07.89 OTHER CHEST PAIN 08/31/2017 REAGAN MCNEILL MD Ot E03.9 HYPOTHYROIDISM, UNSPECIFIED 08/31/2017 REAGAN MCNEILL MD Ot E66.9 OBESITY, UNSPECIFIED 08/31/2017 REAGAN MCNEILL MD Ot E78.5 HYPERLIPIDEMIA, UNSPECIFIED 08/31/2017 REAGAN MCNEILL MD Ot I10 ESSENTIAL (PRIMARY) HYPERTENSION 08/31/2017 REAGAN MCNEILL MD Ot I25.110 ATHSCL HEART DISEASE OF [place] COR ART W 08/31/2017 REAGAN MCNEILL MD, Ot I77.1 STRICTURE OF ARTERY 08/31/2017 REAGAN MCNEILL MD, Ot J45.909 UNSPECIFIED ASTHMA, UNCOMPLICATED 08/31/2017 REAGAN MCNEILL MD, Ot R82.90 UNSPECIFIED ABNORMAL FINDINGS IN URINE 08/31/2017 REAGAN MCNELIL MD, Ot Z68.43 BODY MASS INDEX (BMI) 50-59.9 , ADULT 08/31/2017 REAGAN MCNEILL MD, Ot Z79.01 FDC (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 OF 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 08/31/2017 REAGAN MCNEILL MD, Ot Z86.711 PERSONAL HISTORY OF PULMONARY EMBOLISM 08/31/2017 REAGAN MCNEILL MD, Ot Z86.718 PERSONAL HISTORY OF OTHER VENOUS THROMBO Procedures Code Description Performed By Performed On 10.12 COMPLETE THYROIDECTOMY 09/11/2009 37.22 LEFT HEART CARDIAC CATH 03/17/2012 88.53 LT HEART ANGIOCARDIOGRAM 03/17/2012 88.56 CORONAR ARTERIOGR-2 CATH 03/17/2012 06434 XRAY CERVICAL SPINE, 2 OR 3 VIEWS 04/20/2012 07233 ROUTINE VENIPUNCTURE 04/22/2012 30812 INR (IN HOUSE) 04/22/2012 18881 TSH 04/23/2012 69585 OXIMETRY 04/27/2012 53441 MEASURE BLOOD OXYGEN LEVEL 05/16/2012 34834 ROUTINE VENIPUNCTURE 06/03/2012 27885 XRAY CHEST 2 VIEW 06/03/2012 64927 BNP 06/03/2012 25873 CBC 06/03/2012 83897 INR (IN HOUSE) 06/03/2012 97730 OXIMETRY 06/03/2012 08025 XRAY FOOT LEFT COMP MIN 3 VIEWS 06/17/2012 06587 SPIROMETRY 06/29/2012 68719 BRONCHODILATION PRE/POST 06/29/2012 66212 RESPIRATORY FLOW VOLUME LOOP 06/29/2012 20790 UA W/ CULTURE IF INDICATED 07/13/[address] ABDOMEN & PELVIS STONE SEARCH 07/28/2012 28408 UA W/ CULTURE IF INDICATED 07/28/2012 62277 STONE ANALYSIS 07/29/[address] HEAD/BRAIN W/O & W/DYE 07/30/2012 10203 XRAY ANKLE R COMP MIN, 3 VIEWS 09/02/2012 11041 XRAY FOOT RIGHT 2 VIEWS 09/02/[address] ANGIO, CHEST 10/18/2012 39005 INR (IN HOUSE) 10/28/2012 38474 US GUIDE FOR BIOPSY 12/16/2012 62698 US BREAST(S) ULTRASOUND, BOTH 12/24/2012 98270 INR (IN HOUSE) 01/12/2013 13667 UA W/ CULTURE IF INDICATED 01/12/2013 58367 CULTURE URINE 01/14/2013 50701 INR (IN HOUSE) 02/10/2013 72503 ROUTINE VENIPUNCTURE 03/15/2013 92125 XRAY FOOT RIGHT 2 VIEWS 03/15/2013 39831 TSH 03/15/2013 48868 INR (IN HOUSE) 03/15/2013 47319 XRAY CHEST 2 VIEW 03/23/[address] CHEST W/DYE 03/23/2013 06263 ECHO 2D 03/23/2013 86191 OXIMETRY 03/23/2013 36398 INR (IN HOUSE) 03/29/2013 65996 INR (IN HOUSE) 05/18/2013 72721 XRAY CHEST 2 VIEW 05/19/2013 07513 OXIMETRY 05/23/2013 95160 UA W/ CULTURE IF INDICATED 06/14/2013 45171 ROUTINE VENIPUNCTURE 06/23/2013 51041 INR (IN HOUSE) 06/23/2013 92798 LIPID PANEL 06/23/2013 76686 TSH 06/23/2013 16788 MRI EXTREMITY JOINT, LOWER RIGHT, W/O CONTRAST 07/14/2013 ORTHOPEDI JAMARCUS DEVLIN 07/14/2013 06603 ROUTINE VENIPUNCTURE 08/15/2013 53635 INR (IN HOUSE) 08/15/2013 77113 TSH 08/15/2013 27915 INR (IN HOUSE) 09/02/2013 55361 CULTURE URINE 12/16/2013 32788 UA W/ CULTURE IF INDICATED 12/16/2013 16078 CULTURE URINE 12/19/2013 38668 ROUTINE VENIPUNCTURE 05/26/2014 45617 INR (IN HOUSE) 05/26/2014 29820 TSH 05/26/2014 07362 CBC 05/26/2014 59950 US VENOUS DOPPLER (DVT EVAL ) 08/07/2014 [id number] DILATE 1 COR ART, BIFURC, W DRUG-ELUT IN 08/19/2017 [id number] DILATION OF 1 COR ART WITH DRUG-ELUT INT 08/19/2017 [id number] MEASURE OF CARDIAC SAMPL PRESSURE, L H 08/19/2017 [id number] FLUOROSCOPY OF MULT COR ART USING L OSM 08/19/2017 [id number] FLUOROSCOPY OF LEFT HEART USING LOW OSMO 08/19/2017 Results Test Result Range Complete blood count [...] measurement (mass/volume) < ng/ mL <0.30 Thyroid [place] Profile - 04/01/16 09:57 TSH 2.930 uIU/mL [...] blood basophil count (count/volume) 0.0 10*3/uL 0.0-0.1 [id number] - 07/17/16 07:14 Serum or plasma urea [...] 11:16 Hemoglobin A1c 6.8 % 4.8-5.6 Thyroid [place] Profile - 10/22/16 11:16 TSH 7.960 uIU/mL [...] VLDL measurement (mass/volume) 43 mg/ dL 5-40 Bacterial urine culture - 08/19/17 08:58 URINE CULTURE RESULTS <10,000/ML NRG Methicillin resistant Staphylococcus aureus (MRSA) screening culture - 08:58 Methicillin resistant Staphylococcus aureus (MRSA) screening culture NEG NRG Complete blood count (CBC) with automated white [...] - 08/20/17 04:25 Magnesium 2.0 mg/dL 1.8-2.4 Complete blood count (CBC) with automated white blood cell (WBC) differential - 08/20/17 12:45 Blood leukocytes automated count (number/volume) 11.8 10*3/uL 4.3-11.0 Blood erythrocytes automated count (number/volume) 4.11 10*6/uL 4.35-5.85 Venous blood hemoglobin measurement (mass/volume) 12.5 g/dL 11.5-16.0 Blood hematocrit (volume fraction) 39 % 35-52 Automated erythrocyte mean corpuscular volume 95 [foz_us] 80-99 Automated erythrocyte mean corpuscular hemoglobin (mass per erythrocyte) 30 pg 25-34 Automated erythrocyte mean corpuscular hemoglobin concentration measurement ( mass/volume) 32 g/dL 32-36 Automated erythrocyte distribution width ratio 15.3 % 10.0-14.5 Automated blood platelet count (count/volume) 182 10*3/uL 130-400 Automated blood platelet mean volume measurement 10.7 [foz_us] 7.4-10.4 Automated blood neutrophils/100 leukocytes 74 % 42-75 Automated blood lymphocytes/100 leukocytes 15 % 12-44 Blood monocytes/100 leukocytes 9 % 0-12 Automated blood eosinophils/100 leukocytes 2 % 0-10 Automated blood basophils/100 leukocytes 0 % 0-10 Blood neutrophils automated count (number/volume) 8.8 10*3 1.8-7.8 Blood lymphocytes automated count (number/volume) 1.8 10*3 1.0-4.0 Blood monocytes automated count (number/volume) 1.0 10*3 0.0-1.0 Automated eosinophil count 0.2 10*3/uL 0.0-0.3 Automated blood basophil count (count/volume) 0.0 10*3/uL 0.0-0.1 Comprehensive metabolic panel - 08/20/17 12:45 Serum or plasma sodium measurement (moles/volume) 136 mmol/L 135-145 Serum or plasma potassium measurement (moles/volume) 4.0 mmol/L 3.6-5.0 Serum or plasma chloride measurement (moles/volume) 101 mmol/L 98-107 Carbon dioxide 24 mmol/L 21-32 Serum or plasma anion gap determination (moles/volume) 11 mmol/L 5-14 Serum or plasma urea nitrogen measurement (mass/volume) 10 mg/dL 7-18 Serum or plasma creatinine measurement (mass/volume) 0.79 mg/dL 0.60-1.30 Serum or plasma urea nitrogen/creatinine mass ratio 13 NRG Serum or plasma creatinine measurement with calculation of estimated glomerular filtration rate > NRG Serum or plasma glucose measurement (mass/volume) 191 mg/dL 70-105 Serum or plasma calcium measurement (mass/volume) 9.0 mg/dL 8.5-10.1 Serum or plasma total bilirubin measurement (mass/volume) 0.6 mg/dL 0.1-1.0 Serum or plasma alkaline phosphatase measurement (enzymatic activity/volume) 87 U/L 40-136 Serum or plasma aspartate aminotransferase measurement (enzymatic activity/ volume) 21 U/L 5-34 Serum or plasma alanine aminotransferase measurement (enzymatic activity/volume ) 20 U/L 0-55 Serum or plasma protein measurement (mass/volume) 7.7 g/dL 6.4-8.2 Serum or plasma albumin measurement (mass/volume) 3.9 g/dL 3.2-4.5 Magnesium - 08/20/17 12:45 Magnesium 1.9 mg/dL 1.8-2.4 Serum or plasma troponin i.cardiac measurement (mass/volume) - 08/20/17 12:45 Serum or plasma troponin i.cardiac measurement (mass/volume) < ng/ mL <0.30 Myoglobin, serum - 08/20/17 12:45 Myoglobin, serum 52.4 ng/mL 10.0-92.0 Lipase - 08/20/17 12:45 Lipase 47 U/L 8-78 Complete blood count (CBC) with automated white blood cell (WBC) differential - 09/04/17 22:58 Blood leukocytes automated count (number/volume) 10.2 10*3/uL 4.3-11.0 Blood erythrocytes automated count (number/volume) 4.34 10*6/uL 4.35-5.85 Venous blood hemoglobin measurement (mass/volume) [...] 10.4 [foz_us] 7.4-10.4 Automated blood neutrophils/100 leukocytes 66 % 42-75 Automated blood lymphocytes/100 leukocytes 23 % 12-44 Blood monocytes/100 leukocytes 7 % 0-12 Automated blood eosinophils/100 leukocytes 3 % 0-10 Automated blood basophils/100 leukocytes 0 % 0-10 Blood neutrophils automated count (number/volume) 6.8 10*3 1.8-7.8 Blood lymphocytes automated count (number/volume) 2.4 10*3 1.0-4.0 Blood monocytes automated count (number/volume) 0.8 10*3 0.0-1.0 Automated eosinophil count 0.3 10*3/uL 0.0-0.3 Automated blood basophil count (count/volume) 0.0 10*3/uL 0.0-0.1 PT panel in platelet poor plasma by coagulation assay - 09/04/17 22:58 Prothrombin time (PT) in platelet poor plasma by coagulation assay 29.9 s 12.2-14.7 INR in platelet poor plasma or blood by coagulation assay 2.9 0.8-1.4 Activated partial thromboplastin time (aPTT) in platelet poor plasma bycoagulation assay - 09/04/17 22:58 Activated partial thromboplastin time (aPTT) in platelet poor plasma bycoagulation assay 46 s 24-35 Comprehensive metabolic panel - 09/04/17 22:58 Serum or plasma sodium measurement (moles/volume) 138 mmol/L 135-145 Serum or plasma potassium measurement (moles/volume) 4.4 mmol/L 3.6-5.0 Serum or plasma chloride measurement (moles/volume) 103 mmol/L 98-107 Carbon dioxide 25 mmol/L 21-32 Serum or plasma anion gap determination (moles/volume) 10 mmol/L 5-14 Serum or plasma urea nitrogen measurement (mass/volume) 14 mg/dL 7-18 Serum or plasma creatinine measurement (mass/volume) 0.92 mg/dL 0.60-1.30 Serum or plasma urea nitrogen/creatinine mass ratio 15 NRG Serum or plasma creatinine measurement with calculation of estimated glomerular filtration rate > NRG Serum or plasma glucose measurement (mass/volume) 140 mg/dL 70-105 Serum or plasma calcium measurement (mass/volume) 9.5 mg/dL 8.5-10.1 Serum or plasma total bilirubin measurement (mass/volume) 0.3 mg/dL 0.1-1.0 Serum or plasma alkaline phosphatase measurement (enzymatic activity/volume) 100 U/L 40-136 Serum or plasma aspartate aminotransferase measurement (enzymatic activity/ volume) 22 U/L 5-34 Serum or plasma alanine aminotransferase measurement (enzymatic activity/volume ) 20 U/L 0-55 Serum or plasma protein measurement (mass/volume) 8.1 g/dL 6.4-8.2 Serum or plasma albumin measurement (mass/volume) 3.9 g/dL 3.2-4.5 Magnesium - 09/04/17 22:58 Magnesium 2.3 mg/dL 1.8-2.4 Serum or plasma troponin i.cardiac measurement (mass/volume) - 09/04/17 22:58 Serum or plasma troponin i.cardiac measurement (mass/volume) < ng/ mL <0.30 Myoglobin, serum - 09/04/17 22:58 Myoglobin, serum 39.3 ng/mL 10.0-92.0 Complete urinalysis with reflex to culture - 09/04/17 23:34 Urine color determination YELLOW NRG Urine clarity determination VERY CLOUDY NRG Urine pH measurement by test strip 5 5-9 Specific gravity of urine by test strip 1.020 1.016- 1.022 Urine protein assay by test strip, semi-quantitative 2+ NEGATIVE Urine glucose detection by automated test strip NEGATIVE NEGATIVE Erythrocytes detection in urine sediment by light microscopy 5+ NEGATIVE Urine ketones detection by automated test strip NEGATIVE NEGATIVE Urine nitrite detection by test strip NEGATIVE NEGATIVE Urine total bilirubin detection by test strip NEGATIVE NEGATIVE Urine urobilinogen measurement by automated test strip (mass/volume) NORMAL NORMAL Urine leukocyte esterase detection by dipstick 3+ NEGATIVE Automated urine sediment erythrocyte count by microscopy (number/high power field) [HPF] NRG Automated urine sediment leukocyte count by microscopy (number/high power field ) TNTC NRG Bacteria detection in urine sediment by light microscopy FEW NRG Squamous epithelial cells detection in urine sediment by light microscopy 2-5 NRG Crystals detection in urine sediment by light microscopy NONE NRG Casts detection in urine sediment by light microscopy NONE NRG Mucus detection in urine sediment by light microscopy NEGATIVE NRG Complete urinalysis with reflex to culture YES NRG Encounters ACCT No. Visit Date/Time Discharge Status Pt. Type Provider Facility Loc./Unit Complaint [id number] 08/07/2014 09:51:00 08/07/2014 23:59:59 [facility] Outpatient JOSE ALBERTO ARIZA DO [id number] 05/26/2014 11:37:00 05/26/2014 23:59:59 [facility] Outpatient JOSE ALBERTO ARIZA DO [id number] 01/16/2014 11:28:00 01/16/2014 23:59:59 CLS Outpatient ARIZA DOJOSE ALBERTO [id number] 12/26/2013 12:31:00 12/26/2013 23:59:59 CLS Outpatient ARIZA DO, JOSE ALBERTO Resendiz [id number] 12/19/2013 13:24:00 12/19/2013 23:59:59 CLS Outpatient ARIZA DOJOSE ALBERTO [id number] 12/16/2013 13:58:00 12/16/2013 23:59:59 CLS Outpatient ARIZA DO, JOSE ALBERTO Resendiz [id number] 12/16/2013 13:58:00 12/16/2013 23:59:59 CLS Outpatient ARIZA DO, JOSE ALBERTO Resendiz [id number] 10/07/2013 14:22:00 10/07/2013 23:59:59 CLS Outpatient ARIZA DO, JOSE ALBERTO Resendiz [id number] 09/02/2013 10:22:00 09/02/2013 23:59:59 CLS Outpatient ARIZA DO, JOSE ALBERTO Astrid [id number] 08/15/2013 14:48:00 08/15/2013 23:59:59 CLS Outpatient ARIZA DO, JOSE ALBERTO Astrid [id number] 07/14/2013 14:39:00 07/14/2013 23:59:59 CLS Outpatient CHERYL BIRMINGHAM APRN [id number] 07/08/2013 08:55:00 07/08/2013 23:59:59 CLS Outpatient ARIZA DO, JOSE ALBERTO K [id number] 06/23/2013 09:13:00 06/23/2013 23:59:59 CLS Outpatient CHARLES DOYLE PA-C [id number] 06/14/2013 15:59:00 06/14/2013 23:59:59 CLS Outpatient CHERYL BIRMINGHAM APRN [id number] 05/30/2013 12:08:00 05/30/2013 23:59:59 CLS Outpatient ARIZA DO JOSE ALBERTO Resendiz [id number] 05/23/2013 10:34:00 05/23/2013 23:59:59 CLS Outpatient ARIZA DO, JOSE ALBERTO K [id number] 05/23/2013 10:34:00 05/23/2013 23:59:59 CLS Outpatient ARIZA DO, JOSE ALBERTO K [id number] 05/18/2013 17:42:00 05/18/2013 23:59:59 CLS Outpatient DONI PALAFOX APRN [id number] 04/18/2013 11:55:00 04/18/2013 23:59:59 CLS Outpatient ARIZA DOJOSE ALBERTO [id number] 03/29/2013 11:13:00 03/29/2013 23:59:59 CLS Outpatient ARIZA DOJOSE ALBERTO [id number] 03/22/2013 09:39:00 03/22/2013 23:59:59 CLS Outpatient ARIZA DOJOSE ALBERTO [id number] 03/22/2013 09:39:00 03/22/2013 23:59:59 CLS Outpatient ARIZA DOJOSE ALBERTO [id number] 03/15/2013 09:00:00 03/15/2013 23:59:59 CLS Outpatient ARIZA DOJOSE ALBERTO [id number] 03/15/2013 09:00:00 03/15/2013 23:59:59 CLS Outpatient ARIZA DOJOSE ALBERTO [id number] 02/10/2013 08:00:00 02/10/2013 23:59:59 CLS Outpatient ARIZA DOJOSE ALBERTO [id number] 07/28/2012 14:05:00 07/28/2012 23:59:59 CLS Outpatient ARIZA DOJOSE ALBERTO [id number] 07/13/2012 10:49:00 07/13/2012 23:59:59 CLS Outpatient ARIZA DOJOSE ALBERTO [id number] 06/29/2012 07:51:00 06/29/2012 23:59:59 CLS Outpatient CHARLES DOYLE PA-C [id number] 06/10/2012 10:44:00 06/10/2012 23:59:59 CLS Outpatient [id number] 06/03/2012 09:27:00 06/03/2012 23:59:59 CLS Outpatient ARIZA DOJOSE ALBERTO [id number] 05/14/2012 15:57:00 05/14/2012 23:59:59 CLS Outpatient ARIZA DOJOSE ALBERTO [id number] 04/27/2012 08:04:00 04/27/2012 23:59:59 CLS Outpatient [id number] 04/22/2012 09:50:00 04/22/2012 23:59:59 CLS Outpatient [id number] 04/20/2012 16:19:00 04/20/2012 23:59:59 CLS Outpatient [id number] 02/05/2012 08:28:00 02/05/2012 23:59:59 CLS Outpatient MORIS LOYOLA MD [id number] 01/12/2013 09:13:00 Document Registration [id number] 12/16/2012 09:21:00 Document Registration [id number] 12/16/2012 09:21:00 Document Registration [id number] 10/28/2012 12:34:00 Document Registration [id number] 09/10/2012 16:36:00 Document Registration [id number] 08/31/2012 10:19:00 Document Registration [id number] 08/31/2012 10:19:00 Document Registration [id number] 10/23/2016 15:09:00 Document Registration [id number] 08/20/2017 12:34:00 08/20/2017 13:57:00 DIS Outpatient SHALOM RAMÍREZ [employer] [facility] ER CP [id number] 08/19/2017 08:24:00 08/20/2017 09:55:00 DIS Outpatient REAGAN MCNEILL MD [facility] CATH ABN STRESS,CP,HTN [id number] 08/05/2017 10:47:00 08/05/2017 23:59:59 CLS Outpatient REAGAN MCNEILL MD [facility] LAB Z51.81 Z86.711 [id number] 08/05/2017 10:36:00 08/05/2017 23:59:59 CLS Outpatient MICHAEL WAGNER [facility] CARD I25.10 CAD [id number] 07/13/2017 14:45:00 07/13/2017 23:59:59 CLS Preadmit MICHAEL WAGNER [facility] CARD I25.10 CAD [id number] 07/10/2017 12:47:00 07/10/2017 23:59:59 CLS Outpatient PAYAL VIGIL [employer] [facility] RAD N20.0 RENAL STONES [id number] 02/05/2017 12:52:00 02/05/2017 23:59:59 CLS Outpatient PAYAL VIGIL [employer] [facility] RAD M54.2 [id number] 01/20/2017 18:36:00 01/20/2017 23:32:00 DIS Emergency JESSICA NAM, CHARLES Shannon [facility] ER SOB,DIZZINESS,NAUSEA [id number] 12/29/2016 00:14:00 12/29/2016 23:59:59 CLS Preadmit REAGAN MCNEILL MD [facility] LAB Z86.711 [id number] 12/28/2016 13:45:00 12/28/2016 15:30:00 DIS Emergency BESSY MOYA NORIS K [facility] ER HEADACHE [id number] 09/29/2016 14:31:00 12/28/2016 00:01:00 DIS Outpatient REAGAN MCNEILL MD [facility] LAB Z86.711 [id number] 09/04/2016 13:36:00 09/04/2016 16:13:00 DIS Emergency TJMIRIAM [facility] ER FALL/ RIGHT KNEE INJ [id number] 07/17/2016 06:58:00 07/17/2016 23:59:59 CLS Outpatient KAVYA PATRICK [employer] [facility] RAD GENERALIZED ABD PAIN [id number] 02/16/2016 19:06:00 02/16/2016 22:12:00 DIS Emergency SHALOM RAMÍREZ [employer] [facility] ER CHEST PAIN [id number] 02/15/2016 12:58:00 02/15/2016 23:59:59 CLS Outpatient PAYAL VIGIL [employer] [facility] RAD ACUTE RT SIDED THORACIC PAIN [id number] 09/05/2015 07:05:00 09/06/2015 09:30:00 DIS Outpatient REAGAN MCNEILL MD [facility] CATH CAD,HTN HLP SYNCOPE [id number] 09/04/2015 14:08:00 09/04/2015 16:10:00 DIS Emergency SHALOM RAMÍREZ [employer] [facility] ER CHEST PAIN [id number] 06/21/2015 15:25:00 06/21/2015 19:18:00 DIS Emergency MICHELE COTTON [facility] ER SOA [id number] 05/23/2015 15:54:00 05/23/2015 23:59:59 CLS Outpatient TONY MOYA MIGDALIA Abhay [facility] LAB HYPOTHYROIDISM, DISORDER OF THE DIGESTIVE SYSTEM [id number] 05/14/2015 21:53:00 05/15/2015 00:14:00 DIS Emergency NORIS DOHERTY DO [facility] ER POST SURGICAL PAIN [id number] 04/21/2015 12:17:00 04/21/2015 15:18:00 DIS Emergency CHARLES LOPEZ MD [facility] ER POST OP/BLOODY DRAINAGE [id number] 04/19/2015 06:00:00 04/20/2015 19:00:00 DIS Outpatient CHAS RODARTE DO [facility] CRONIC PELVIC PAIN [id number] 04/18/2015 10:51:00 04/18/2015 15:10:00 DIS Outpatient BALDEV LITTLEJOHN DO [facility] ABDOMINAL PAIN [id number] 04/14/2015 10:47:00 04/14/2015 12:53:00 DIS Emergency DEWEY PURDY MD [facility] ER L LEG PAIN/WEAKNESS [id number] 04/12/2015 13:39:00 04/12/2015 23:59:59 CLS Outpatient CHEN INFANTE APRN [facility] LAB ACUTE UPPER RESPIRATORY INFECTION [id number] 04/12/2015 13:34:00 04/12/2015 23:59:59 CLS Outpatient CHAS RODARTE DO [facility] PREOP CRONIC PELVIC PAIN [id number] 04/12/2015 13:20:00 04/12/2015 23:59:59 CLS Outpatient BALDEV LITTLEJOHN DO [facility] PREOP ABD. PAIN [id number] 03/21/2015 14:46:00 03/21/2015 23:59:59 CLS Outpatient CHAS RODARTE DO [facility] RAD PELVIC PAIN [id number] 03/21/2015 10:49:00 03/21/2015 23:59:59 CLS Outpatient BALDEV LITTLEJOHN DO [facility] RAD SUPRAPUBIC ABD PAIN [id number] 01/17/2015 10:59:00 01/17/2015 23:59:59 CLS Outpatient CHAS RODARTE DO [facility] RAD IUD NOT FOUND ON SONO [id number] 01/12/2015 10:03:00 01/12/2015 12:10:00 DIS Emergency MUSA NAM, CELY Resendiz [facility] ER POSS BLOOD CLOT IN LUNG [id number] 01/08/2015 15:12:00 01/08/2015 23:59:59 CLS Outpatient CHAS RODARTE DO [facility] RAD FIBROID UTERUS [id number] 01/05/2015 15:46:00 01/05/2015 17:46:00 DIS Emergency SHALOM RAMÍREZ APRN [facility] ER POST COLONOSCOPY [id number] 01/02/2015 13:01:00 01/02/2015 15:55:00 DIS Outpatient BALDEV LITTLEJOHN DO [facility] SDC RECTAL BLEEDING [id number] 12/28/2014 05:53:00 12/28/2014 23:59:59 CLS Outpatient LITTLEJOHN BALDEV MOYA [facility] PREOP RECTAL BLEEDING [id number] 11/08/2014 14:02:00 11/08/2014 23:59:59 CLS Outpatient ALYSSA MOYA CATERINA Danielle [facility] RT DYSPNEA [id number] 11/08/2014 20:53:00 11/08/2014 22:18:00 DIS Emergency SHALOM RAMÍREZ [employer] [facility] ER ABD PAIN [id number] 10/01/2014 12:06:00 10/01/2014 13:20:00 DIS Emergency MICHELE COTTON [facility] ER CAT BITE [id number] 09/29/2014 17:38:00 09/29/2014 20:24:00 DIS Emergency SHALOM RAMÍREZ APRN [facility] ER POSSIBLE INTERNAL BLEEDING [id number] 09/06/2014 15:19:00 09/06/2014 16:50:00 DIS Emergency MICHELE COTTON [facility] ER L FOOT/KNEE PAIN [id number] 08/08/2014 14:28:00 08/08/2014 23:59:59 CLS Outpatient CHARLES FREED [facility] RAD PAIN IN LIMB [id number] 06/23/2014 02:44:00 06/23/2014 04:43:00 DIS Emergency CHARLES LOPEZ MD [facility] ER ABD PAIN [id number] 06/21/2014 13:14:00 06/21/2014 16:31:00 DIS Emergency BESSY DOKARENAA K [facility] ER VAG BLEEDING [id number] 06/07/2014 19:12:00 06/07/2014 22:17:00 DIS Emergency BESSY DONORIS [facility] ER LOWER R SIDE PAIN [id number] 05/26/2014 13:46:00 05/26/2014 23:59:59 CLS Outpatient CHAS RODARTE DO [facility] RAD RLQ ABD PAIN [id number] 04/21/2014 22:55:00 04/22/2014 01:35:00 DIS Emergency BESSY MOYA NORIS K [facility] ER CP [id number] 02/02/2014 06:00:00 02/02/2014 11:25:00 DIS Outpatient CHAS RODARTE DO [facility] SDC PELVIC PAIN [id number] 01/25/2014 10:03:00 01/25/2014 23:59:59 CLS Outpatient CHASTITYCHAS JOHNSON DO [facility] PREOP PELVIC PAIN [id number] 01/12/2014 22:23:00 01/13/2014 00:42:00 DIS Emergency BESSY DONORIS [facility] ER CHEST PAIN [id number] 2013 14:06:00 2013 18:02:00 DIS Emergency MICHELE COTTON [facility] ER POSS UTI [id number] 12/05/2013 20:51:00 12/05/2013 22:14:00 DIS Emergency SHALOM RAMÍREZ APRN [facility] ER PAINFUL URINATION [id number] 11/26/2013 11:37:00 11/26/2013 12:18:00 DIS Emergency SHALOM RAMÍREZ [employer] [facility] ER UTI [id number] 09/30/2013 19:00:00 10/01/2013 15:30:00 DIS Outpatient REAGAN MCNEILL MD [facility] CATH CHEST PAIN [id number] 09/12/2013 07:58:00 09/12/2013 23:59:59 CLS Outpatient MICHAEL WAGNER [facility] CARD CAD,CP,GERD, ROGERS [id number] 08/16/2013 11:45:00 08/17/2013 13:35:00 DIS Inpatient REAGAN MCNEILL MD [facility] CSD CHEST PAIN [id number] 07/15/2013 11:49:00 07/15/2013 12:17:00 DIS Emergency SHALOM RAMÍREZ [employer] [facility] ER RIGHT ANKLE PAIN [id number] 07/11/2013 14:43:00 07/11/2013 23:59:59 CLS Outpatient [id number] 06/10/2013 15:51:00 06/10/2013 23:59:59 CLS Outpatient [id number] 05/19/2013 13:11:00 05/19/2013 23:59:59 CLS Outpatient CHARLES FREED [facility] RAD DX PNEUMONIA [id number] 05/12/2013 21:14:00 05/12/2013 23:15:00 DIS Emergency CHARLES LOPEZ MD [facility] ER SOA [id number] 04/01/2013 12:54:00 04/01/2013 23:59:59 CLS Outpatient CHARLES FREED [facility] CARD SOB, ENLARGED MEDIASTINUM [id number] 02/27/2013 19:11:00 02/27/2013 21:12:00 DIS Emergency MICHELE COTTON [facility] ER NECK/HEAD/BACK PAIN [id number] 01/26/2013 16:39:00 01/26/2013 18:16:00 DIS Emergency CHARLES LOPEZ MD [facility] ER COMPLICATIONS FROM CONCUSSION [id number] 01/11/2013 22:33:00 01/12/2013 03:42:00 DIS Emergency CHARLES LOPEZ MD [facility] ER FELL, HEADACHE, DIZZINESS,NAUSEA [id number] 01/06/2013 09:51:00 01/06/2013 23:59:59 CLS Outpatient ACE BAJWA MD [facility] LAB FDC MED USE [id number] 01/06/2013 09:20:00 01/06/2013 23:59:59 CLS Outpatient CHARLES FREED [facility] RAD 1.3 CM MASS [id number] 12/24/2012 08:13:00 12/24/2012 23:59:59 CLS Outpatient CHARLES FREED [facility] RAD BREAST PAIN [id number] 11/28/2012 04:59:00 11/28/2012 07:08:00 DIS Emergency WERNER HERNANDEZ MD [facility] ER R SIDE FACIAL PAIN; NO INJ [id number] 11/26/2012 17:26:00 11/26/2012 23:59:59 CLS Outpatient [id number] 10/21/2012 14:42:00 10/21/2012 19:32:00 DIS Emergency CELY VIGIL MD [facility] ER GI BLEED [id number] 10/19/2012 03:00:00 10/19/2012 15:15:00 DIS Outpatient REAGAN MCNEILL MD [facility] CATH CHEST PAIN [id number] 10/18/2012 10:23:00 10/18/2012 13:31:00 DIS Emergency CHARLES LOPEZ MD [facility] ER CP [id number] 09/04/2017 23:10:00 Document Registration [id number] 08/10/2015 18:15:00 Document Registration [id number] 04/22/2014 05:17:00 Document Registration [id number] 04/22/2014 05:17:00 Document Registration [id number] 04/22/2014 05:17:00 Document Registration [id number] 04/22/2014 05:17:00 Document Registration [id number] 04/22/2014 05:17:00 Document Registration [id number] 04/22/2014 05:17:00 Document Registration [id number] 08/17/2012 07:41:00 Document Registration [id number] 08/12/2012 12:16:00 Document Registration [id number] 08/08/2012 21:15:00 Document Registration [id number] 06/20/2012 11:44:00 Document Registration [id number] 05/17/2012 09:58:00 Document Registration [id number] 05/05/2012 07:31:00 Document Registration [id number] 04/20/2012 17:20:00 Document Registration [id number] 03/15/2012 15:15:00 Document Registration [id number] 02/03/2012 05:39:00 Document Registration [id number] 01/29/2012 12:58:00 Document Registration [id number] 01/19/2012 19:43:00 Document Registration [id number] 01/17/2012 15:24:00 Document Registration [id number] 12/31/2011 19:30:00 Document Registration [id number] 11/27/2011 09:08:00 Document Registration [id number] 10/29/2011 19:49:00 Document Registration [id number] 08/28/2011 05:48:00 Document Registration [id number] 08/21/2011 14:12:00 Document Registration [id number] 03/04/2011 13:31:00 Document Registration [id number] 10/08/2010 04:55:00 Document Registration [id number] 08/26/2010 20:58:00 Document Registration [id number] 08/15/2010 09:13:00 Document Registration [id number] 09/15/2009 21:29:00 Document Registration [id number] 09/07/2009 12:20:00 Document Registration [id number] 08/09/2016 03:07:00 Document Registration [id number] 04/02/2016 13:06:00 Document Registration [id number] 07/10/2017 11:00:00 07/10/2017 23:59:59 [facility] PAYAL Samuels [facility] [id number] 06/29/2017 14:45:00 Document Registration [id number] 03/26/2017 13:00:00 Document Registration [id number] 01/05/2017 16:00:00 Document Registration [id number] 01/06/2017 08:06:00 Document Registration
[2017-09-05] MEDS ORDERED: morphine INJ 4 MG/ML 1 ML (VIAL/SYRINGE) IV PRN (01:45)
[2017-09-05] MEDS ORDERED: NITROGLYCERIN 0.4 MG SL TABS BTL 25'S SL PRN (01:45)
[2017-09-05] MEDS ORDERED: RT-ALBUTEROL SULF 2.5 MG/3 ML PRE-MIX VIAL INH PRN (02:45)
[2017-09-05 06:21] LABS: MYOGLOBIN SERUM 34.4 NG/ML (10.0-92.0)
[2017-09-05 06:59] LABS: CHOLESTEROL 152 MG/DL (< 200); HDL CHOLESTEROL 35 MG/DL (40-60); TRIGLYCERIDES 121 MG/DL (<150); VLDL CHOLESTEROL 24 MG/DL (5-40)
--- NOTE | 2017-09-05 07:25 | Diagnostic Imaging Report ---
INDICATION: Chest pain. TECHNIQUE: Single view chest 11:13 p.m. CORRELATION STUDY: 08/20/2017. FINDINGS: Heart size enlarged. Mediastinum prominent but generally stable. Vascular is unchanged. Lung chacon generally stable. Cervical thoracic spinal fusion hardware. IMPRESSION: 1. Generally stable chest with cardiac enlargement. No evidence of overt failure. Dictated by: Dictated on workstation # [id number]
[2017-09-05] MEDS ORDERED: PANTOPRAZOLE 40 MG (PROTONIX) TAB PO SCH (07:30)
[2017-09-05] MEDS ORDERED: FUROSEMIDE 40 MG/4 ML INJ (LASIX) IVP ONE (07:30)
--- NOTE | 2017-09-05 07:35 | Consultation-Cardiology ---
HPI-Cardiology Cardiology Consultation Date of Consultation 09/05/17 Date of Admission Time Seen by Provider: 07:30 Indication: Chest pain HPI 61 years old lady with history of coronary artery disease, COPD, had 2 stents placed about 2-3 weeks ago, has been having recurrent episode of chest pain and palpitation, reporting that she feel her heart flip flopping or skipping beat in her chest then she feel sharp stabbing pain on the left side of her sternum then she started having dull achiness. Yesterday her heart continue to have the flip-flop feeling and she had pressure and stabbing pain took nitroglycerin which improved her pressure and her palpitation. She has been complaining of dyspnea and reported that it has been getting worse recently. Admit having increase urinary frequency. No fever or chills. Patient is fairly anxious, came into the emergency room, currently feeling better. Still have mild discomfort. Home Medications & Allergies Allergies: Coded Allergies: methylprednisolone (Verified Allergy, Mild, 09/07/09) Penicillins (Unverified Allergy, Unknown, 08/28/11) ketorolac (Verified Allergy, Unknown, ITCHING, 04/12/15) promethazine (Unverified Allergy, Unknown, hallucinations, 02/02/14) venom-honey bee (Unverified Allergy, Unknown, 02/02/14) Uncoded Allergies: TAPE (Allergy, Unknown, 08/16/13) Home Medication List Reviewed: Yes YTR-Lgrexi-Nlocsv Hx Patient Social History Marital Status: Employed/Student: unemployed Alcohol Use: Denies Use Recreational Drug Use: No Smoking Status: Never a Smoker 2nd Hand Smoke Exposure: No Recent Foreign Travel: No Recent Infectious Disease Expo: No Recent Hopitalizations: Yes Physical Abuse Screen: No Sexual Abuse: No Immunizations Up To Date Tetanus Booster (TDap): Less than 5yrs Date of Pneumonia Vaccine: May 05, 2007 Past Medical History Discussed below Family Medical History Family History: Arthritis G8 SISTER Cardiovascular disease 03 FATHER Colon cancer 03 MOTHER Completed stroke 03 MOTHER Hypertension 03 MOTHER G8 BROTHER Myocardial infarction 03 MOTHER Thyroid disease G8 SISTER Constitutional: see HPI, malaise EENTM: see HPI, no symptoms reported, eye pain Respiratory: no symptoms reported, see HPI; No cough; dyspnea on exertion; No hemoptysis, No orthopnea, No phlegm; short of breath; No stridor, No wheezing, No other Cardiovascular: see HPI, chest pain; No edema, No Hx of Intervention; palpitations; No syncope, No vascular heart diseas, No other Gastrointestinal: no symptoms reported, see HPI Genitourinary: see HPI, frequency, hesitancy Musculoskeletal: see HPI, joint pain, muscle pain Skin: no symptoms reported, see HPI Psychiatric/Neurological: See HPI, Anxiety Reviewed Test Results Reviewed Test Results Lab Laboratory Tests Test 09/04/17 22:58 09/04/17 23:34 09/05/17 04:27 09/05/17 07:17 Range/Units White Blood Count 10.2 4.3-11.0 10^3/uL Red Blood Count 4.34 L 4.35-5.85 10^6/uL Hemoglobin 12.9 11.5-16.0 G/DL Hematocrit 41 35-52 % Mean Corpuscular Volume 94 80-99 FL Mean Corpuscular Hemoglobin 30 25-34 PG Mean Corpuscular Hemoglobin Concent 32 32-36 G/DL Red Cell Distribution Width 15.2 H 10.0-14.5 % Platelet Count 231 130-400 10^3/uL Mean Platelet Volume 10.4 7.4-10.4 FL Neutrophils (%) (Auto) 66 42-75 % Lymphocytes (%) (Auto) 23 12-44 % Monocytes (%) (Auto) 7 0-12 % Eosinophils (%) (Auto) 3 0-10 % Basophils (%) (Auto) 0 0-10 % Neutrophils # (Auto) 6.8 1.8-7.8 X 10^3 Lymphocytes # (Auto) 2.4 1.0-4.0 X 10^3 Monocytes # (Auto) 0.8 0.0-1.0 X 10^3 Eosinophils # (Auto) 0.3 0.0-0.3 10^3/uL Basophils # (Auto) 0.0 0.0-0.1 10^3/uL Prothrombin Time 29.9 H 12.2-14.7 SEC INR Comment 2.9 H 0.8-1.4 Activated Partial Thromboplast Time 46 H 24-35 SEC Sodium Level 138 135-145 MMOL/L Potassium Level 4.4 3.6-5.0 MMOL/L Chloride Level 103 98-107 MMOL/L Carbon Dioxide Level 25 21-32 MMOL/L Anion Gap 10 5-14 MMOL/L Blood Urea Nitrogen 14 7-18 MG/DL Creatinine 0.92 0.60-1.30 MG/DL Estimat Glomerular Filtration Rate > 60 BUN/Creatinine Ratio 15 Glucose Level 140 H 70-105 MG/DL Calcium Level 9.5 8.5-10.1 MG/DL Magnesium Level 2.3 1.8-2.4 MG/DL Total Bilirubin 0.3 0.1-1.0 MG/DL Aspartate Amino Transf (AST/SGOT) 22 5-34 U/L Alanine Aminotransferase (ALT/SGPT) 20 0-55 U/L Alkaline Phosphatase 100 40-136 U/L Myoglobin 39.3 34.4 10.0-92.0 NG/ML Troponin I < 0.30 < 0.30 <0.30 NG/ML Total Protein 8.1 6.4-8.2 GM/DL Albumin 3.9 3.2-4.5 GM/DL Urine Color YELLOW Urine Clarity VERY CLOUDY H Urine pH 5 5-9 Urine Specific [place] 1.020 1.016-1.022 Urine Protein 2+ H NEGATIVE Urine Glucose (UA) NEGATIVE NEGATIVE Urine Ketones NEGATIVE NEGATIVE Urine Nitrite NEGATIVE NEGATIVE Urine Bilirubin NEGATIVE NEGATIVE Urine Urobilinogen NORMAL NORMAL MG/DL Urine Leukocyte Esterase 3+ H NEGATIVE Urine RBC (Auto) 5+ H NEGATIVE Urine RBC 10-25 H /HPF Urine WBC TNTC H /HPF Urine Squamous Epithelial Cells 2-5 /HPF Urine Crystals NONE /LPF Urine Bacteria FEW H /HPF Urine Casts NONE /LPF Urine Mucus NEGATIVE /LPF Urine Culture Indicated YES Triglycerides Level 121 <150 MG/DL Cholesterol Level 152 < 200 MG/DL LDL Cholesterol Direct 98 1-129 MG/DL VLDL Cholesterol 24 5-40 MG/DL HDL Cholesterol 35 L 40-60 MG/DL Physical Exam Vital Signs Vital Signs - First Documented 09/04/17 09/04/17 09/05/17 22:51 23:00 02:34 Temp 96.7 Pulse 76 Resp 16 B/P (MAP) 134/78 (96) Pulse Ox 94 O2 Delivery Room Air O2 Flow Rate 2.00 FiO2 21 Capillary Refill : Less Than 3 Seconds General Appearance: No Apparent Distress, WD/WN Eyes: Bilateral Eye Normal Inspection, Bilateral Eye PERRL, Bilateral Eye EOMI HEENT: PERRL/EOMI, TMs Normal, Normal ENT Inspection, Pharynx Normal Neck: Full Range of Motion, Normal Inspection, Non Tender, Supple, Carotid Bruit Respiratory: Chest Non Tender, Lungs Clear, Normal Breath Sounds, No Accessory Muscle Use, No Respiratory Distress Cardiovascular: Regular Rate, Rhythm, No Edema, No Gallop, No JVD, No Murmur, Normal Peripheral Pulses Gastrointestinal: Normal Bowel Sounds, No Organomegaly, No Pulsatile Mass, Non Tender, Soft Back: Normal Inspection, No CVA Tenderness, No Vertebral Tenderness Extremity: Normal Capillary Refill, Normal Inspection, Normal Range of Motion, Non Tender, No Calf Tenderness, No Pedal Edema Neurologic/Psychiatric: Alert, Oriented x3, No Motor/Sensory Deficits, Normal Mood/Affect Skin: Normal Color, Warm/Dry Lymphatic: No Adenopathy A/P-Cardiology Admission Diagnosis Chest pain Shortness of breath Coronary artery disease COPD Urinary tract infection Assessment/Plan Chest pain, atypical in presentation, patient has underlying coronary artery disease as described below in addition to anxiety. Her presentation is atypical , feeling flip flopping in her chest then stabbing pain then pressure. Has been on nitroglycerin, I will add Ranexa and evaluate her tolerance and response. Patient was reassured, her cardiac enzymes has been negative. EKG did not show any acute abnormality. Shortness of breath, history of COPD, morbid obesity, BMI is 57. Patient will be starting on cardiac rehabilitation program with exercise program. 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 The circumflex artery has mild disease proximally with severe disease at the midportion underwent Alpine 3.0 23 mm with excellent results, there was some jailing of a small branch resulted in significant chest pain, reevaluated that area showed reestablishment of the flow. Has small vessel disease distally, the LAD is tortuous. I will continue with maximizing medical therapy Dyspnea, history of COPD, I will evaluate BNP and give her one dose of IV Lasix- most recent 2-D echocardiogram July 2017 revealed normal LV size, EF 70-75 percent. Mild mitral and tricuspid regurgitation. PA pressure 25 mmHg. 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 Maintained on Coumadin, continue to monitor PT/INR. Peripheral edema -improved. Continue to monitor. Hypertension, history of syncope episode with hypotension. I will use low-dose beta blockers and evaluate her tolerance and response. Hyperlipidemia, taking Lipitor 80 mg daily and fish oil. Continue to monitor Morbid obesity, BMI is 57. She was educated on weight loss and diet control. Hypothyroidism, followed and monitored by primary care physician. Gastric esophageal reflux disease, I am changing omeprazole to Protonix 40 mg daily Bronchial asthma/COPD/obstructive sleep apnea requiring C PAP, followed and managed by Dr. Kramer Nonobstructive carotid artery stenosis per most recent CTA done January 2017. Continue to monitor. Status post hysterectomy, colonoscopy Clinical Quality Measures AMI/AHF: ASA po Prior to arrival: Yes DVT/VTE Risk/Contraindication: Risk Factor Score Per Nursin RFS Level Per Nursing on Admit: 4+=Very High REAGAN MCNEILL MD Sep 05, 2017 07:35
[2017-09-05] MEDS ORDERED: ASPIRIN E.C. 325 MG (ECOTRIN) TABLET PO SCH (09:00)
[2017-09-05] MEDS ORDERED: RANOLAZINE ER 500 MG TAB (RANEXA) PO SCH (09:00)
[2017-09-05] MEDS ORDERED: NITROGLYCERIN 0.4 MG/PATCH (NITRO-DUR) TD SCH (09:00)
[2017-09-05] MEDS ORDERED: RT-ALBUTEROL SULF 2.5 MG/3 ML PRE-MIX VIAL INH SCH (09:00)
[2017-09-05] MEDS ORDERED: ASPIRIN E.C. 81 MG (ECOTRIN) TAB PO SCH (09:00)
[2017-09-05] MEDS ORDERED: CLOPIDOGREL 75 MG (PLAVIX) TABLET PO SCH (09:00)
[2017-09-05] MEDS ORDERED: NITR1PAT62 TOP (10:15)
--- NOTE | 2017-09-05 10:28 | History & Physicial ([facility]) ---
HPI History of Present Illness: Time Seen by Provider: 13:25 Attending Physician Melissa Smith DO PCP Ebony Lobo DO Consult Date of Admission Sep 05, 2017 at 00:28 Home Medications Home Medications Reviewed patient Home Medication Reconciliation performed by pharmacy medication reconciliations geologic technician and/or nursing. Patients Allergies have been reviewed. Allergies Coded Allergies: methylprednisolone (Verified Allergy, Mild, 09/07/09) Penicillins (Unverified Allergy, Unknown, 08/28/11) ketorolac (Verified Allergy, Unknown, ITCHING, 04/12/15) promethazine (Unverified Allergy, Unknown, hallucinations, 02/02/14) venom-honey bee (Unverified Allergy, Unknown, 02/02/14) Uncoded Allergies: TAPE (Allergy, Unknown, 08/16/13) WHK-Xauknc-Odvqyh Hx Patient Social History Marrital Status: Employed/Student: unemployed Alcohol Use: Denies Use Recreational Drug Use: No Smoking Status: Never a Smoker 2nd Hand Smoke Exposure: No Recent Foreign Travel: No Contact w/other who traveled: No Recent Hopitalizations: Yes Recent Infectious Disease Expo: No Physical Abuse Screen: No Sexual Abuse: No Immunizations Up To Date Tetanus Booster (TDap): Less than 5yrs Date of Pneumonia Vaccine: May 05, 2007 Family Medical History Family History: Arthritis G8 SISTER Cardiovascular disease 03 FATHER Colon cancer 03 MOTHER Completed stroke 03 MOTHER Hypertension 03 MOTHER G8 BROTHER Myocardial infarction 03 MOTHER Thyroid disease G8 SISTER Review of Systems ([facility]C) Constitutional: see HPI Physical Exam-([facility]) Physical Exam Vital Signs VS - Last 72 Hours, by Label 09/04/17 09/04/17 09/05/17 09/05/17 22:51 23:00 00:58 01:20 Temp 96.7 98.1 Pulse 76 64 76 Resp 16 18 18 B/P (MAP) 134/78 (96) 143/79 130/75 (93) Pulse Ox 94 94 99 93 O2 Delivery Room Air Nasal Cannula Nasal Cannula Room Air O2 Flow Rate 2.00 2.00 09/05/17 09/05/17 09/05/17 09/05/17 01:35 01:37 01:54 02:04 Temp 98.4 98.4 Pulse 68 66 69 Resp 20 20 B/P (MAP) 105/63 (77) 113/65 (81) Pulse Ox 90 92 O2 Delivery Room Air Room Air Room Air 09/05/17 09/05/17 09/05/17 09/05/17 02:34 02:42 03:03 04:00 Temp 98.6 Pulse 65 64 66 Resp 20 20 B/P (MAP) 119/62 (81) 118/71 (87) Pulse Ox 93 93 90 95 O2 Delivery Room Air Room Air Nasal Cannula O2 Flow Rate 2.00 FiO2 21 09/05/17 09/05/17 09/05/17 09/05/17 05:03 06:20 07:00 07:00 Pulse 62 62 64 Resp 20 20 B/P (MAP) 114/61 (78) 121/86 (98) Pulse Ox 96 94 99 O2 Delivery Nasal Cannula Nasal Cannula Nasal Cannula O2 Flow Rate 2.00 2.00 2.00 09/05/17 09/05/17 09/05/17 09/05/17 08:00 08:40 12:00 12:00 Temp 97.0 97.9 97.9 Pulse 65 74 74 Resp 20 22 22 B/P (MAP) 125/67 (86) 100/56 (71) 100/56 (71) Pulse Ox 98 92 92 O2 Delivery Nasal Cannula Room Air Nasal Cannula Nasal Cannula O2 Flow Rate 2.00 2.00 2.00 09/05/17 13:00 Pulse 71 Capillary Refill : Less Than 3 Seconds General Appearance: no apparent distress Assessment/Plan Assessment/Plan Admission Status: Observation Clinical Quality Measures AMI/AHF: ASA po Prior to arrival: Yes DVT/VTE Risk/Contraindication: Risk Factor Score Per Nursin RFS Level Per Nursing on Admit: 4+=Very High MELISSA SMITH DO Sep 05, 2017 10:27
[2017-09-05] MEDS ORDERED: RT-ALBUTEROL SULF 2.5 MG/3 ML PRE-MIX VIAL IH PRN (10:30)
[2017-09-05] MEDS ORDERED: ACETAMINOPHEN 500 MG TAB (TYLENOL) PO PRN (10:30)
[2017-09-05] MEDS ORDERED: toPIRamate 100 MG (TOPAMAX) TAB PO PRN (11:00)
[2017-09-05] MEDS ORDERED: LORazepam 0.5 MG (ATIVAN) TABLET PO PRN (14:00)
--- NOTE | 2017-09-05 14:40 | Short Stay Summary ---
History of Present Illness History of Present Illness Reason for visit/HPI Per ED Notes: Here with report of central chest pressure that started as pain. States that she had initial muscle twinges at about 3 p.m. but nothing significant. Approximate 30 minutes ago she started having 8 out of 10 chest pain centrally that changed to pressure after taking 2 nitroglycerin. Had 2 stents placed approximately 2 weeks ago. Reports taking her meds as directed although has not had her Plavix yet today. She usually takes at bedtime. She did take some aspirin this morning. Denies nausea, vomiting but does describe breathing problems and states that she's been short of breath since her heart catheter 2 weeks ago. Does report that she thinks she may have a urinary tract infection and she started having burning with urination this morning. Date of Admission Sep 05, 2017 at 00:28 Date of Discharge 09/05/17 Time Seen by Provider: 13:25 Attending Physician Melissa Smith DO Admitting Physician Ebony Lobo DO Consult Cardiology - Dr. Melara Allergies and Home Medications Allergies Coded Allergies: methylprednisolone (Verified Allergy, Mild, 09/07/09) Penicillins (Unverified Allergy, Unknown, 08/28/11) ketorolac (Verified Allergy, Unknown, ITCHING, 04/12/15) promethazine (Unverified Allergy, Unknown, hallucinations, 02/02/14) venom-honey bee (Unverified Allergy, Unknown, 02/02/14) Uncoded Allergies: TAPE (Allergy, Unknown, 08/16/13) Home Medications Acetaminophen 500 Mg Tablet, 500 MG PO BID PRN for PAIN-MILD, (Reported) Albuterol Sulfate 18 Gm Hfa.aer.ad, 1 PUFF INH Q4H PRN for SHORTNESS OF BREATH, (Reported) Albuterol Sulfate 2.5 Mg/3 Ml Vial.neb, 2.5 MG NEB Q4H PRN for SHORTNESS OF BREATH, (Reported) Aspirin 81 Mg Tablet.dr, 81 MG PO DAILY Prescribed by: REAGAN MELARA on 08/20/17 0800 Atorvastatin Calcium 80 Mg Tablet, 80 MG PO HS Prescribed by: REAGAN MELARA on 08/20/17 0800 Cephalexin 500 Mg Capsule, 500 MG PO TID Prescribed by: MELISSA SMITH on 09/05/17 1445 Clopidogrel Bisulfate 75 Mg Tablet, 75 MG PO DAILY Prescribed by: REAGAN MELARA on 08/20/17 0800 Isosorbide Mononitrate 30 Mg Tab.er.24h, 30 MG PO DAILY Prescribed by: REAGAN MELARA on 08/20/17 0802 Levothyroxine Sodium 150 Mcg Tablet, 150 MCG PO HS, (Reported) Lorazepam 0.5 Mg Tablet, 0.5 MG PO TID three times daily as needed for anxiety or shortness of breath Prescribed by: MELISSA SMITH on 09/05/17 1445 Nitroglycerin 0.4 Mg Tab.subl, 0.4 MG SL PRN 1 TAB SUBLINGUAL Q5MIN. RETURN TO THE ER IF YOUR CHEST PAIN CONTINUES OR IS UNRESPLVED. Prescribed by: SHALOM RAMÍREZ on 08/20/17 1350 Nitroglycerin 1 Each Patch.td24, 0.4 MG TOP DAILY, (Reported) apply in AM and remove at HS [place] 3 Polyunsat Fatty Acids 1,000 Mg Cap, 1,000 MG PO BID WITH MEALS Prescribed by: REAGAN MELARA on 08/20/17 0800 Omeprazole 20 Mg Capsule.dr, 20 MG PO DAILY, (Reported) LAST FILLED #30 04-15-17 Ranolazine 500 Mg Tab.er.12h, 500 MG PO BID Prescribed by: MELISSA SMITH on 09/05/17 1445 Topiramate 50 Mg Tablet, 100 MG PO BID PRN for HEADACHE, (Reported) TAKES 2 (50MG) TABLETS Warfarin Sodium 5 Mg Tablet, 5 MG PO SuMoWeFrSa, (Reported) Warfarin Sodium 5 Mg Tablet, 7.5 MG PO TuTh, (Reported) TAKES 1 & 1/2 (5MG) TABLET Patient Home Medication List Home Medication List Reviewed: Yes Past Zilxbna-Fbsrfe-Jwxrhs Hx Patient Social History Marrital Status: Living Status: lives with spouse Employed/Student: unemployed Alcohol Use: Denies Use Recreational Drug Use: No Smoking Status: Never a Smoker 2nd Hand Smoke Exposure: Yes (as a child both parents smoked quite a bit, in the home) Physical Abuse Screen: No Sexual Abuse: No Recent Foreign Travel: No Contact w/other who traveled: No Recent Hopitalizations: Yes Recent Infectious Disease Expo: No Immunizations Up To Date Tetanus Booster (TDap): Less than 5yrs Date of Pneumonia Vaccine: May 05, 2007 Seasonal Allergies Seasonal Allergies: Yes Surgeries Yes (D&C;NECK SURGERY;CARDIAC CATH;BREAST BX;COLONOSCOPY;UTERINE FIBROID RESECT) Angioplasty, Appendectomy, Breast, Coronary Stent, Gallbladder, Hysterectomy, Orthopedic, Thyroidectomy Respiratory Yes (CPAP @ HOME) Currently Using CPAP: Yes (@ HS) Cardiovascular Yes (2-PE HX) Coronary Artery Disease, Deep Vein Thrombosis, High Cholesterol, Hypertension, Peripheral Vascular, Syncope Neurological Yes (NEUROPATHY ARMS & FEET) Neuropathy Reproductive System : No Hx Reproductive Disorders: Yes (FIBROIDS, CHRONIC PELVIC PAIN ) Sexually Transmitted Disease: No HIV/AIDS: No 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, 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 Genitourinary Yes Kidney Stones Gastrointestinal Yes Gastroesophageal Reflux Musculoskeletal Yes (POOR MOBIILITY FROM OBESITY-USES MOTORIZED SCOOTER,CHRONIC GENERALIZED PAIN ) Degenerate Disk Disease, Arthritis, Back Injury, Chronic Back Pain, Spasms Endocrine History of Endocrine Disorders: Yes (MORBID OBESITY) Endocrine Disorders: Hypothyroidsim HEENT History of HEENT Disorders: No Cancer No Colon Psychosocial History of Psychiatric Problem: No Integumentary History of Skin or Integumenta: No Blood Transfusions History of Blood Disorders: Yes (BLOOD CLOTS) Adverse Reaction to a Blood Tr: No Reviewed Nursing Assessment Reviewed/Agree w Nursing PMH: Yes Family Medical History Family Hx: Arthritis G8 SISTER Cardiovascular disease 03 FATHER Colon cancer 03 MOTHER Completed stroke 03 MOTHER Hypertension 03 MOTHER G8 BROTHER Myocardial infarction 03 MOTHER Thyroid disease G8 SISTER Constitutional: see HPI EENTM: no symptoms reported Respiratory: see HPI, dyspnea on exertion Cardiovascular: see HPI, Hx of Intervention Gastrointestinal: no symptoms reported Genitourinary: see HPI, dysuria, frequency, pain : No Control/STD Prophylaxis: IUD Musculoskeletal: no symptoms reported Skin: no symptoms reported Psychiatric/Neurological: No Symptoms Reported Physical Exam Vital Signs Vital Signs - First Documented 09/04/17 09/04/17 09/05/17 22:51 23:00 02:34 Temp 96.7 Pulse 76 Resp 16 B/P (MAP) 134/78 (96) Pulse Ox 94 O2 Delivery Room Air O2 Flow Rate 2.00 FiO2 21 Capillary Refill : Less Than 3 Seconds General Appearance: No Apparent Distress, WD/WN, Anxious, Obese Eyes: Bilateral Eye Normal Inspection, Bilateral Eye EOMI HEENT: Normal ENT Inspection, Moist Mucous Membranes; No Pale Conjunctivae (L) , No Pale Conjunctivae (R), No Photophobia, No Scleral Icterus (L), No Scleral Icterus (R) Neck: Full Range of Motion, Normal Inspection, Non Tender, Supple; No Carotid Bruit, No Lymphadenopathy (L), No Lymphadenopathy (R), No Thyromegaly Respiratory: Chest Non Tender, Lungs Clear, Normal Breath Sounds, No Accessory Muscle Use, No Respiratory Distress Cardiovascular: Regular Rate, Rhythm, No Gallop, No JVD, Normal Peripheral Pulses, Systolic Murmur Gastrointestinal: Normal Bowel Sounds, No Organomegaly, No Pulsatile Mass, Non Tender, Soft; No Guarding, No Rebound Rectal: Deferred Back: Normal Inspection, No CVA Tenderness, No Vertebral Tenderness Extremity: Normal Capillary Refill, Normal Inspection, Normal Range of Motion, Non Tender, No Calf Tenderness, Swelling Neurologic/Psychiatric: Alert, Oriented x3, No Motor/Sensory Deficits, Normal Mood/Affect Skin: Normal Color, Warm/Dry Lymphatic: No Adenopathy Clinical Quality Measures AMI/AHF: ASA po Prior to arrival: Yes DVT/VTE Risk/Contraindication: Risk Factor Score Per Nursin RFS Level Per Nursing on Admit: 4+=Very High Short Stay Diagnosis Discharge Diagnosis-Short Stay Admission Diagnosis: Chest Pain Dyspnea on Exertion Acute Cystitis due to E. coli bacteri, present on admission Hx of PE, on anticoagulation Hypothyroidism Type II Diabetes Final Discharge Diagnosis: Chest Pain -pt reports that chest pain is gone at the time of exam -pt has been seen by cardiology, both in the ED as well as this morning on the floor -extensive discussion with Dr. Melara, who does not believe that pt's chest pain is cardiac in nature and would like to know if the patient could be started on something to help with her anxiety, as he thinks that her anxiety is a large contributor to her chest pain as well as her shortness of breath; they have also started her on Ranexa Dyspnea on Exertion -Pt states that she is able to walk to the bathroom and approximately 20 feet without getting shortness of breath -reports that she has had PFTs done in the past and that the results were all normal, but this was several years ago -no history of smoking, but significant second hand smoke exposure as a child -suspect that pt has a significant amount of anxiety surrounding her recent cardiac stent placement, that leads to her hyperventilation that then causes some chest pain Anxiety -suspect that patient has anxiety related to her recent procedures and potential complications that is contributing to some of her symptoms, but does not take away from the fact that she of course also has real medical problems as well -will start on Ativan 0.5 mg TID PRN and fill for 10 days, pt is to follow up with PCP and it will be up to her to decide if this is the most appropriate thing for the patient halfway, or if another anoxiolytic would be more appropriate Acute Cystitis due to E. coli bacteri, present on admission -recevived IV rocephin in the hospital -will discharge on Keflex PO TID x7 days Hx of PE, on anticoagulation -therapuetic on current dose of warfarin, no changes Hypothyroidism -continue on home dose of medication Type II Diabetes -continue on home medications Morbid Obesity, BMI 57.7 -weight loss strongly encouraged Conclusion Labs Laboratory Tests 09/04/17 22:58: White Blood Count 10.2, Red Blood Count 4.34L, Hemoglobin 12.9, Hematocrit 41, Mean Corpuscular Volume 94, Mean Corpuscular Hemoglobin 30, Mean Corpuscular Hemoglobin Concent 32, Red Cell Distribution Width 15.2H, Platelet Count 231, Mean Platelet Volume 10.4, Neutrophils (%) (Auto) 66, Lymphocytes (%) (Auto) 23 , Monocytes (%) (Auto) 7, Eosinophils (%) (Auto) 3, Basophils (%) (Auto) 0, Neutrophils # (Auto) 6.8, Lymphocytes # (Auto) 2.4, Monocytes # (Auto) 0.8, Eosinophils # (Auto) 0.3, Basophils # (Auto) 0.0, Prothrombin Time 29.9H, INR Comment 2.9H, Activated Partial Thromboplast Time 46H, Sodium Level 138, Potassium Level 4.4, Chloride Level 103, Carbon Dioxide Level 25, Anion Gap 10, Blood Urea Nitrogen 14, Creatinine 0.92, Estimat Glomerular Filtration Rate > 60 , BUN/Creatinine Ratio 15, Glucose Level 140H, Calcium Level 9.5, Magnesium Level 2.3, Total Bilirubin 0.3, Aspartate Amino Transf (AST/SGOT) 22, Alanine Aminotransferase (ALT/SGPT) 20, Alkaline Phosphatase 100, Myoglobin 39.3, Troponin I < 0.30, Total Protein 8.1, Albumin 3.9 09/04/17 23:34: Urine Color YELLOW, Urine Clarity VERY CLOUDYH, Urine pH 5, Urine Specific [place] 1.020, Urine Protein 2+H, Urine Glucose (UA) NEGATIVE, Urine Ketones NEGATIVE, Urine Nitrite NEGATIVE, Urine Bilirubin NEGATIVE, Urine Urobilinogen NORMAL, Urine Leukocyte Esterase 3+H, Urine RBC (Auto) 5+H, Urine RBC 10-25H, Urine WBC TNTCH, Urine Squamous Epithelial Cells 2-5, Urine Crystals NONE, Urine Bacteria FEWH, Urine Casts NONE, Urine Mucus NEGATIVE, Urine Culture Indicated YES 09/05/17 04:27: Myoglobin 34.4, Troponin I < 0.30, Triglycerides Level 121, Cholesterol Level 152, LDL Cholesterol Direct 98, VLDL Cholesterol 24, HDL Cholesterol 35L 09/05/17 07:17: B-Type Natriuretic Peptide < 10.0 Microbiology 09/04/17 Urine Culture - Preliminary, Resulted Escherichia coli Conclusion/Plan Pt's chest pain has been determined to be non-cardiac in nature; it appears to be significantly related to anxiety, although patient denies every having anxiety or feeling anxious. Attempted to discuss with pt that sometimes anxiety will only manifest itself in physical symptoms, and this is how she feels her anxiety, although it is the same way she feels symptoms of other things. Pt is willing to try the PRN ativan and will have close follow up to see if this has offered an improvement in her symptoms. At the time of exam patient is anxious to make sure she can be home tomorrow as early as possible because she is planning on cooking for a large meal for a family reunion. Discussed that pt was kept in the hospital because she was reporting that she was too short of breath to do much, but patient states "I have been looking forward to this and I am not missing making this dinner". Encouraged pt to talk with her , and if they decide they would like to go home today, to please let the nurse know, and they will contact myself and Dr. Melara and will discharge patient this afternoon or evening if she desires. Otherwise will plan to discharge first thing in the morning. Copy Copies To 1: [facility]/MELISSA LAN DO Sep 05, 2017 14:40
[2017-09-05] MEDS ORDERED: CEPH-507 PO (14:45)
[2017-09-05] MEDS ORDERED: RANO500T3 PO (14:45)
[2017-09-05] MEDS ORDERED: LORA0.5T PO (14:45)
--- NOTE | 2017-09-05 14:48 | Discharge Instructions ---
Discharge [facility] Discharge Medications New, Converted or Re-Newed RX: Transmitted to Pharmacy New Medications: Cephalexin (Keflex) 500 Mg Capsule 500 MG PO TID for 7 Days, #21 CAP 0 Refills Lorazepam (Lorazepam) 0.5 Mg Tablet 0.5 MG PO TID for 10 Days, #30 TAB three times daily as needed for anxiety or shortness of breath Ranolazine (Ranexa) 500 Mg Tab.er.12h 500 MG PO BID for 30 Days, #60 TAB Continued Medications: Acetaminophen (Acetaminophen) 500 Mg Tablet 500 MG PO BID PRN for PAIN-MILD, TAB Albuterol Sulfate (Ventolin Hfa) 18 Gm Hfa.aer.ad 1 PUFF INH Q4H PRN for SHORTNESS OF BREATH, INHALER Albuterol Sulfate (Albuterol Sulfate) 2.5 Mg/3 Ml Vial.neb 2.5 MG NEB Q4H PRN for SHORTNESS OF BREATH, EA Aspirin (Aspirin EC) 81 Mg Tablet.dr 81 MG PO DAILY, #100 TAB Atorvastatin Calcium (Atorvastatin Calcium) 80 Mg Tablet 80 MG PO HS, #30 TAB 4 Refills Clopidogrel Bisulfate (Clopidogrel) 75 Mg Tablet 75 MG PO DAILY, #30 TAB 4 Refills Isosorbide Mononitrate (Isosorbide Mononitrate ER) 30 Mg Tab.er.24h 30 MG PO DAILY, #30 TAB 4 Refills Levothyroxine Sodium (Levothyroxine Sodium) 150 Mcg Tablet 150 MCG PO HS, TAB Nitroglycerin (Nitroglycerin) 0.4 Mg Tab.subl 0.4 MG SL PRN for Chest Pain, #24 TAB 1 TAB SUBLINGUAL Q5MIN. RETURN TO THE ER IF YOUR CHEST PAIN CONTINUES OR IS UNRESPLVED. Nitroglycerin (Nitroglycerin 0.4mg/HR Patch) 1 Each Patch.td24 0.4 MG TOP DAILY apply in AM and remove at HS [place] 3 Polyunsat Fatty Acids (Fish Oil 1,000 mg Capsule) 1,000 Mg Cap 1000 MG PO BID WITH MEALS, #100 CAP 4 Refills Omeprazole (Omeprazole) 20 Mg Capsule.dr 20 MG PO DAILY, CAP LAST FILLED #30 04-15-17 Topiramate (Topiramate) 50 Mg Tablet 100 MG PO BID PRN for HEADACHE, TAB TAKES 2 (50MG) TABLETS Warfarin Sodium (Warfarin Sodium) 5 Mg Tablet 5 MG PO SuMoWeFrSa, TAB Warfarin Sodium (Warfarin Sodium) 5 Mg Tablet 7.5 MG PO TuTh, TAB TAKES 1 & 1/2 (5MG) TABLET Patient Instructions Patient Instructions -take medications as prescribed -follow up with Darrick HERNANDEZ next week -follow up with Dr. Melara in 1-2 weeks -return to hospital for chest pain or pressure, shortness of breath out of normal for patient, nausea or vomiting that makes you unable to keep down medication or clear liquids for more than 12 hours, fever >101 that does not go down with tylenol or ibuprofen, if directed by alternative medicine practitioner provider, or with any other emergent complaints or concerns Goal/Follow Up Appt: Darrick HERNANDEZ at [facility] next week Dr. Melara with Cardiology in 1-2 weeks Return to The Hospital For: return to hospital for chest pain or pressure, shortness of breath out of normal for patient, nausea or vomiting that makes you unable to keep down medication or clear liquids for more than 12 hours, fever >101 that does not go down with tylenol or ibuprofen, if directed by alternative medicine practitioner provider, or with any other emergent complaints or concerns Activity & Diet Discharge Diet: Cardiac Diet Activity as Tolerated: Yes Copy Copies To 1: [facility]/VIANNEY LAN DO Sep 05, 2017 14:48
[2017-09-05] MEDS ORDERED: warFARin 5 MG (COUMADIN) TAB PO SCH (18:00)
[2017-09-05] MEDS ORDERED: LEVOTHYROXINE 150 MCG (LEVOTHROID) TAB PO SCH (21:00)
[2017-09-05] MEDS ORDERED: PATCH REMOVAL TP SCH (21:00)
[2017-09-05] MEDS ORDERED: ATORVASTATIN 80 MG (LIPITOR) TABLET PO SCH (21:00)
[2017-09-05] MEDS ORDERED: cefTRIAXone 1 GM/NS 100 ML IVPB IV SCH ×2 (21:00)
[2017-09-06] MEDS ORDERED: CLOPIDOGREL 75 MG (PLAVIX) TABLET PO SCH (09:00)
[2017-09-06] MEDS ORDERED: PATCH REMOVAL TP SCH (09:00)
[2017-09-08] MEDS ORDERED: warFARin 5 MG (COUMADIN) TAB PO SCH (18:00)
--- OUTSIDE RECORDS SUMMARY | 2017-09-10 10:15 | XMS REPORT | Continuity of Care Document ---
Author Author [employer] Organization [facility] Address Unknown Phone Unavailable Care Team Providers Care Associate Property Manager Name Role Phone [employer] Unavailable Unavailable Problems Problem Status Onset Date Classification Date Reported Comments Source Other forms of dyspnea 04/07 Diagnosis 04/11/2017 [facility] Pulmonary hypertension, unspecified 04/07/2017 Diagnosis 04/11/2017 [facility] Hyperlipidemia, unspecified 04/07/2017 Diagnosis 2016 [facility] Essential (primary) hypertension 04/07/2017 Diagnosis 06/2016 [facility] Chronic obstructive pulmonary disease, unspecified 04/07/2017 Diagnosis 04/11/2017 [facility] Atherosclerotic heart disease of [place] coronary artery without angina pectoris 04/07/2017 Diagnosis 04/11/2017 [facility] Palpitations 04/07/2017 Diagnosis 04/11/2017 [facility] Chest pain, unspecified Diagnosis 04/11/2017 [facility] Chronic obstructive lung disease (disorder) 04/07/2017 Diagnosis 04/11/2017 [facility] Chest pain (finding) 2016 Diagnosis 04/11/2017 [facility] Palpitations (finding) 04/07 Diagnosis 04/11/2017 [facility] Coronary arteriosclerosis (disorder) 04/07/2017 Diagnosis 04/11/2017 [facility] Pulmonary hypertension (disorder) 04/07/2017 Diagnosis [facility] Dyspnea on exertion (finding) 04/07/2017 Diagnosis 2016 [facility] Hyperlipidemia (disorder) Diagnosis 04/11/2017 [facility] Hypertensive disorder, systemic arterial (disorder) 04/07/2017 Diagnosis 04/11/2017 [facility] Medications Medication Details Route Status Patient Instructions Ordering Provider Order Date Source No Known Medications No known medications Active [facility] Allergies, Adverse Reactions, Alerts Immunizations Results Vital Signs Encounters Location Location Details Encounter Type Encounter Number Reason For Visit Attending Provider ADM Date DC Date Status Source [facility] [id number] Outpatient [id number] Moisés Antonio 04/07/2017 Active [facility] Clinic [id number] SELF REFERRAL 04/07/2017 04/08/2017 [facility] [id number] Outpatient [id number] Moisés Antonio 04/13/2017 Active [facility] [id number] Inpatient [id number] Rayshawn Arnav 04/13/2017 04/14/2017 Active [facility] Procedures Procedure Code Date Perfomer Comments Source Cholecystectomy 05/11/2011 [facility] D & C 05/11/2011 [facility] Throat surgery 05/11/2011 [facility] EGD 05/11/2010 [facility] Plan of Care Social History Assessment and Plan Family History Advance Directives Functional Status
--- OUTSIDE RECORDS SUMMARY | 2017-09-10 10:15 | XMS REPORT | Clinical Summary ---
Author Author [facility] Organization [facility] Address Unknown Phone Unavailable Care Team Providers Care Gas Desulfurizer Name Role Phone Timmy Canales PCP Zena Ferrera RN Unavailable Unavailable Raman Haskins MD Unavailable Jovanna Heath Unavailable Unavailable Source Comments Some departments are not documenting in the electronic medical record. If you do not see the information that you expected, contact Release of Information in the Health Information Management department at [phone] for further assistance in locating additional records.[facility] Allergies Active Allergy Reactions Severity Noted [...] Taken Blood Pressure 143/86 03/23/2014 2:06 PM SCADA ENGINEER Pulse 76 03/23/2014 2:06 PM SCADA ENGINEER Temperature 37.1 C (98.8 F) 03/23/2014 2:06 PM SCADA ENGINEER Respiratory Rate - - Oxygen Saturation 93% 03/23/2014 2:06 PM SCADA ENGINEER Inhaled Oxygen - - Concentration Weight 147.1 kg (324 lb 3.2 oz) 03/23/2014 2:06 PM SCADA ENGINEER Height - - Body Mass Index - [...]
--- OUTSIDE RECORDS SUMMARY | 2017-09-10 10:17 | XMS REPORT ---
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 Active 328285852 Problem Gastroesophageal reflux disease without esophagitis K21.9 Active 441513921 Problem Coronary artery disease I25.10 Active 29769976 Problem Renal stones N20.0 Active 01831127 Problem Hypothyroidism E03.9 Active 34265045 Problem Hyperlipidemia, unspecified hyperlipidemia type E78.5 Active 79014583 Problem Acute gout involving toe of right foot, 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 Active 042709264 Problem Intractable migraine without aura and with status migrainosus G43.011 Active 145516153 ALLERGIES No Information ENCOUNTERS Encounter Location Date Diagnosis [facility] [place] [id number] [place] [address] 63951- 2947 Aug, Type 2 diabetes mellitus with diabetic neuropathic arthropathy, 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 ; Hyperlipidemia, unspecified hyperlipidemia type E78.5 ; Arthritis M19.90 ; Hypothyroidism E03.9 ; Renal stones N20.0 ; BMI 50.0-59.9, adult Z68.43 ; Personal history of pulmonary embolism Z86.711 ; Coronary artery disease I25.10 ; Gastroesophageal reflux disease without esophagitis K21.9 and Intractable migraine without aura and with status migrainosus G43.011 [facility] [place] [id number] [place] [address] 56225- 8020 Aug, [facility] [place] [id number] [place] [address] 19205- 3469 Aug, [place] [id number] [place] [address] 16278- 2568 Jul, Renal stones N20.0 [facility] [id number] [place] [address] 41471 -4971 Jun, Back pain M54.9 ; Kidney stones N20.0 and BMI 50.0-59.9, adult Z68.43 [place] [id number] [place] [address] 83871- 1805 Jun, [place] [id number] [place] [address] 22536- 1488 Apr, [place] [id number] [place] [address] 55067- 2825 Apr, [place] [id number] [place] [address] 62412- 9231 Apr, Right foot pain M79.671 ; Acute gout involving toe of right foot, 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 and Arthritis M19.90 [place] [id number] [place] [address] 79180- 0436 06 Apr, 2017 Gastroesophageal reflux disease without esophagitis K21.9 [place] [id number] [place] [address] 28955- 6530 16 Mar, 2017 Hypothyroidism, unspecified E03.9 [place] [id number] [place] [address] 80769- 8649 Feb, [place] [id number] [place] [address] 48289- 1890 25 Jan, 2017 Cervicalgia of jajlkxsw-vdirzaz-mjwez region M54.2 and Persistent headaches R51 [place] [id number] [place] [address] 86492- 5651 20 Jan, 2017 [place] [id number] [place] [address] 97651- 6943 Jan, Intractable migraine without aura and with status migrainosus G43.011 ; Cervical spine pain M54.2 ; Hyperlipidemia, unspecified hyperlipidemia type E78.5 ; Hypothyroidism E03.9 and Metabolic syndrome E88.81 [place] [id number] [place] [address] 32491- 2962 Jan, Hypothyroidism, unspecified E03.9 [place] [id number] [place] [address] 71300- 0458 Dec, Hypothyroidism, unspecified E03.9 [place] [address] 74278- 9278 Dec, Hypothyroidism E03.9 [place] [id number] [place] [address] 14365- 2631 Nov, Laceration of left great toe w/o foreign body w/o damage to nail, initial encounter S91.112A [facility] [id number] [place] [address] 68927 -7722 Oct, Pain in left knee M25.562 and Arthritis M19.90 [place] [id number] [place] [address] 87731- 5548 Oct, Hypothyroidism, unspecified E03.9 and Hyperlipidemia, unspecified hyperlipidemia type E78.5 [place] [id number] [place] [address] 56621- 3861 Oct, Gastroesophageal reflux disease without esophagitis K21.9 [place] [address] 66581- 3694 14 Oct, 2016 Metabolic syndrome E88.81 ; Personal history of pulmonary embolism Z86.711 ; Other specified hypothyroidism E03.8 and Hyperlipidemia, unspecified hyperlipidemia type E78.5 [place] [id number] [place] [address] 84549- 1126 13 Oct, 2017 Personal history of pulmonary embolism Z86.711 ; Dysuria R30.0 ; Metabolic syndrome E88.81 ; Other specified hypothyroidism E03.8 ; Hyperlipidemia, unspecified hyperlipidemia type E78.5 and Morbid obesity with BMI of 50.0-59.9, adult Z68.43 [place] [id number] [place] [address] 04412- 9207 September, [facility] [place] [id number] [place] [address] 80863 -0158 September, Wrist pain, left M25.532 and Acute pain of left knee M25.562 [place] [id number] [place] [address] 98853- 0738 Jul, Dysuria R30.0 [place] [id number] [place] [address] 58586- 3956 Jul, Dysuria R30.0 [place] [id number] [place] [address] 76653- 5579 Jul, Left lower quadrant pain R10.32 [place] [id number] [place] [address] 18758- 0005 Jul, [place] [id number] [place] [address] 37491- 8929 Jul, Coronary artery disease I25.10 ; Family history of diabetes mellitus Z83.3 ; Morbid obesity with BMI of 50.0-59.9, adult Z68.43 ; Metabolic syndrome E88.81 ; Personal history of pulmonary embolism Z86.711 ; Gastroesophageal reflux disease without esophagitis K21.9 ; Hypothyroidism, unspecified E03.9 ; Hyperlipidemia, unspecified hyperlipidemia type E78.5 and Left lower quadrant pain R10.32 [facility] [place] [id number] [place] [address] 98145 -7745 Jul, [facility] [place] [id number] [place] [address] 42004 -0479 Jul, Morbid obesity with BMI of 50.0-59.9, adult Z68.43 [facility] [address] 07858 -0796 07 Jul, 2016 Generalized abdominal pain R10.84 [facility] [place] [address] 19247 -0302 02 Jun, 2016 Muscle strain of right upper back, initial encounter S29.012A [facility] [address] 27666 -4108 16 May, 2016 Foreign body (FB) in soft tissue M79.5 [place] [address] 67910- 0596 Mar, Hypothyroidism, unspecified E03.9 and Arthritis M19.90 [place] [address] 98341- 6523 13 Feb, 2016 Coronary artery disease I25.10 ; Morbid obesity with BMI of 50.0-59.9, adult Z68.43 ; Metabolic syndrome E88.81 ; Gastroesophageal reflux disease without esophagitis K21.9 ; Hypothyroidism, unspecified E03.9 ; Personal history of pulmonary embolism Z86.711 and Hyperlipidemia, unspecified hyperlipidemia type E78.5 [place] [address] 71996- 4818 10 Feb, 2016 [facility] [place] [id number] [place] [address] 18672 -9656 Jan, Acute right-sided thoracic back pain M54.6 [place] [address] 91715- 8455 Jan, Acute pain of left knee M25.562 [place] [address] 12639- 7846 Dec, Dysuria R30.0 ; Metabolic syndrome E88.81 ; Acute pain of left knee M25.562 ; Acute cystitis with hematuria N30.01 and Acute left eye pain H57.12 [place] [address] 58813- 6135 Dec, [facility] [place] [address] [address]- 8337 Dec, [facility] [place] [id number] [place] [address] 38032- 0243 Dec, Hypothyroidism, unspecified E03.9 [place] [id number] [place] [address] 24354- 6124 Dec, [place] [id number] [place] [address] 53689- 9760 Nov, Peripheral edema R60.9 and Acute pain of left knee M25.562 [facility] [id number] [place] [address] 74115 -1956 September, [place] [id number] [place] [address] 49940- 8857 September, Metabolic syndrome E88.81 and Allergy, subsequent encounter T78.40XD [facility] [address] [address] September, Muscle strain T14.8 [place] [id number] [place] [address] 63762- 1619 Aug, Chest pressure R07.89 ; Metabolic syndrome E88.81 ; Morbid obesity with BMI of 50.0-59.9, adult Z68.43 ; Esophageal reflux 530.81 and Shortness of breath R06.02 [place] [address] [address]- 4500 Aug, [place] [id number] [place] [address] 73353- 7982 Aug, [place] [id number] [place] [address] 99284- 5722 Aug, Hypothyroidism, unspecified E03.9 [place] [id number] [place] [address] 15460- 0754 Aug, Routine health maintenance Z00.00 [facility] [id number] [place] [address] 92584 -5905 Aug, [place] [address] 02142- 8277 Jul, Routine health maintenance Z00.00 ; Family history of diabetes mellitus Z83.3 ; Family history of cancer Z80.9 and Morbid obesity with BMI of 50.0-59.9, adult Z68.43 [facility] [address] 86773 -4974 Jul, Allergic rhinitis J30.9 and Postnasal drip R09.[address] 64297- 1101 Jul, Influenza J11.1 [facility] [address] 96970 -4753 Jul, Dysuria R30.0 [place] [address] 51646- 8084 Apr, [place] [address] 17554- 9293 Mar, Acute upper respiratory infection, unspecified J06.9 and Hypothyroidism E03.9 [place] [address] 44560- 0583 Mar, [place] [address] 15061- 8595 Feb, Coronary artery disease I25.10 [place] [address] 07865- 1727 Feb, Left foot pain M79.672 [place] [address] 26377- 9511 Jan, UTI (urinary tract infection) 599.0 [place] [address] 98657- 1394 Jan, Urinary tract infection, site not specified 599.0 [facility] [place] [address] [address]- 4673 Jan, Urinary tract infection, site not specified 599.0 [facility] [place] [address] [address]- 9442 Jan, [facility] [place] [id number] [place] [address] 57198- 4125 Dec, Headache 784.0 [facility] [place] [id number] [place] [address] 42556- 6401 Dec, Urinary tract infection, site not specified 599.0 [facility] [place] [id number] [place] [address] 86379- 6816 Dec, Urinary tract infection, site not specified 599.0 [facility] [place] [address] [place] [address] 94044- 4891 Dec, Urinary tract infection, site not specified 599.0 [facility] [place] [address] [address]- 5078 Nov, Unspecified sleep apnea 780.57 ; Encounter for long-term ( current) use of anticoagulants V58.61 ; Routine general medical examination at health care facility V70.0 and Arthritis of both knees 716.96 [facility] [place] [address] [address]- 0366 September, Cat bite of hand 882.0 and Rectal bleeding 569.3 [facility] [place] [address] [address]- 6034 Aug, [facility] [place] [id number] [address]- 5521 Aug, [facility] [place] [id number] [address]- 2628 Jul, [facility] [place] [address] [address]- 2546 Jul, [facility] [place] [facility] [address] [id number] [place] [address]- 5322 Jul, [facility] [place] [facility] [address] [id number] [place] [address]- 4939 Jul, [facility] [place] [facility] [address] [id number] [place] [address]- 7100 Jul, [facility] [place] [facility] [address] [id number] [place] [address]- 9693 Jul, [facility] [place] [facility] [address] [id number] [place] [address]- 7504 Jul, [facility] [place] [facility] [address] [id number] [place] [address]- 1500 Jul, [facility] [place] [facility] [address] [id number] [place] [address]- 9945 May, [facility] [place] [facility] [address] [id number] [place] [address]- 2867 May, [facility] [place] [facility] [address] [id number] [place] [address]- 9231 May, [facility] [place] [facility] [address] [id number] [place] [address]- 3286 May, [facility] [place] [facility] [address] [id number] [place] [address]- 1297 May, [facility] [place] [facility] [address] [id number] [place] [address]- 2873 May, [facility] [place] [facility] [address] [id number] [place] [address]- 4728 May, [facility] [place] [facility] [address] [id number] [place] [address]- 5927 Mar, [facility] [place] [facility] [address] [id number] [place] [address]- 2175 Mar, [facility] [place] [facility] [address] [id number] [place] [address]- 5707 08 Jan, 2013 [facility] [place] [facility] [address] [id number] [place] [address]- 2410 08 Jan, 2013 [facility] [place] [facility] [address] [id number] [place] [address]- 2396 Jan, 2013 [facility] [place] [facility] [address] [id number] [place] [address]- 2136 08 Jan, 2013 [facility] [place] [facility] [address] [id number] [place] [address]- 8032 05 Jan, 2013 [facility] [place] [facility] [address] [id number] [place] [address]- 5248 Jan, 2013 [facility] [place] [facility] [address] [id number] [place] [address]- 0012 Dec, [facility] [place] [facility] [address] [id number] [place] [address]- 1697 Dec, [facility] [place] [facility] [address] [id number] [place] [address]- 0253 Dec, [facility] [place] [facility] [address] [id number] [place] [address]- 1336 Dec, [facility] [place] [facility] [address] [id number] [place] [address]- 2233 Dec, [facility] [place] [facility] [address] [id number] [place] [address]- 2015 Dec, [facility] [place] [facility] [address] [id number] [place] [address]- 5222 Dec, [facility] [place] [facility] [address] [id number] [place] [address]- 7317 Dec, [facility] [place] [facility] [address] [id number] [place] [address]- 5025 Dec, [facility] [place] [facility] [address] [id number] [place] [address]- 8066 Dec, [facility] [place] [facility] [address] [id number] [place] [address]- 3474 Nov, [facility] [place] [facility] [address] [id number] [place] [address]- 5684 Nov, [facility] [place] [facility] [address] [id number] [place] [address]- 1959 September, [facility] [place] [facility] [address] [id number] [place] [address]- 5208 September, [facility] [place] [facility] [address] [id number] [place] [address]- 4657 September, [facility] [place] [facility] [address] [id number] [place] [address]- 0859 September, [facility] [place] [facility] [address] [id number] [place] [address]- 5563 Aug, [facility] [place] [facility] [address] [id number] [place] [address]- 5588 Aug, [facility] [place] [facility] [address] [id number] [place] [address]- 0741 Aug, [facility] [place] [facility] [address] [id number] [place] [address]- 1103 Aug, [facility] [place] [facility] [address] [id number] [place] [address]- 4790 Aug, [facility] [place] [facility] [address] [id number] [place] [address]- 3599 Aug, [facility] [place] [facility] [address] [id number] [place] [address]- 7021 Aug, [facility] [place] [facility] [address] [id number] [place] [address]- 1110 Aug, [facility] [place] [facility] [address] [id number] [place] [address]- 1296 Aug, [facility] [place] [facility] [address] [id number] [place] [address]- 9230 07 Aug, 2013 [facility] [place] [facility] [address] [id number] [place] [address]- 0687 Aug, [facility] [place] [facility] [address] [id number] [place] [address]- 1376 Aug, [facility] [place] [facility] [address] [facility] [id number] [place] [address]- 0570 Jul, [facility] [place] [facility] [address] [id number] [place] [address]- 3948 Jul, [facility] [place] [facility] [address] [id number] [place] [address]- 6606 Jul, [facility] [place] [facility] [address] [id number] [place] [address]- 0994 Jul, [facility] [place] [facility] [address] [facility] [id number] [place] [address]- 1156 Jul, [facility] [place] [facility] [address] [facility] [id number] [place] [address]- 2516 Jul, [facility] [place] [facility] [address] [facility] [id number] [place] [address]- 6223 Jul, [facility] [place] [facility] [address] [facility] [id number] [place] [address]- 2488 Jul, [facility] [place] [facility] [address] [id number] [place] [address]- 1976 Jul, [facility] [place] [facility] [address] [facility] [id number] [place] [address]- 5926 Jul, [facility] [place] [facility] [address] [id number] [place] [address]- 9472 Jun, [facility] [place] [facility] [address] [id number] [place] [address]- 8516 Jun, [facility] [place] [facility] [address] [facility] [id number] [place] [address]- 8266 17 Jun, 2013 [facility] [place] [facility] [address] [id number] [place] [address]- 2667 Jun, [facility] [place] [facility] [address] [id number] [place] [address]- 7276 Jun, [facility] [place] [facility] [address] [id number] [place] [address]- 6346 Jun, [facility] [place] [facility] [address] [id number] [place] [address]- 2546 Jun, [facility] [place] [facility] [address] [id number] [place] [address]- 9236 Jun, [facility] [place] [facility] [address] [id number] [place] [address]- 7082 Jun, [facility] [place] [facility] [address] [id number] [place] [address]- 5806 Jun, [facility] [place] [facility] [address] [id number] [place] [address]- 4558 Jun, [facility] [place] [facility] [address] [id number] [place] [address]- 9508 Jun, [facility] [place] [facility] [address] [id number] [place] [address]- 6663 May, [facility] [place] [facility] [address] [id number] [place] [address]- 2538 May, [facility] [place] [facility] [address] [id number] [place] [address]- 7165 May, [facility] [place] [facility] [address] [id number] [place] [address]- 8392 May, [facility] [place] [facility] [address] [id number] [place] [address] May, [facility] [place] [facility] [address] [id number] [place] [address] May, [facility] [place] [facility] [address] [id number] [place] [address]- [address] May, [facility] [address] [id number] [place] [address] May, [facility] [place] [facility] [address] [id number] [place] [address] May, [facility] [address] [id number] [place] [address] May, [facility] [place] [facility] [address] [id number] [place] [address]- [address] May, [facility] [place] [facility] [address] [id number] [place] [address]- [address] May, [facility] [place] [facility] [address] [id number] [place] [address]- [address] May, [facility] [address] [id number] [place] [address]- [address] May, [facility] [place] [facility] [address] [id number] [place] [address]- [address] May, [facility] [place] [facility] [address] [id number] [place] [address]- [address] Apr, [facility] [place] [facility] [address] [id number] [place] [address]- [address] Apr, [facility] [place] [facility] [address] [id number] [place] [address]- [address] Apr, [facility] [place] [facility] [address] [id number] [place] [address]- [address] Apr, [facility] [place] [facility] [address] [id number] [place] [address] Mar, [facility] [place] [facility] [address] [id number] [place] [address]- [address] Mar, [facility] [place] [facility] [address] [id number] [place] [address]- [address] Mar, [facility] [place] [facility] [address] [id number] [place] [address]- [address] Mar, [facility] [place] [facility] [address] [id number] [place] [address]- [address] Mar, [facility] [place] [facility] [address] [id number] [place] [address]- [address] Mar, [facility] [place] [facility] [address] [id number] [place] [address]- [address] Mar, [facility] [place] [facility] [address] [id number] [place] [address]- [address] Mar, [facility] [place] [facility] [address] [id number] [place] [address]- [address] Mar, [facility] [place] [facility] [address] [id number] [place] [address]- [address] Mar, [facility] [place] [facility] [address] [id number] [place] [address]- [address] Mar, [facility] [place] [facility] [address] [id number] [place] [address]- [address] Mar, [facility] [place] [facility] [address] [id number] [place] [address]- [address] Feb, [facility] [place] [facility] [address] [id number] [place] [address]- [address] 18 Jan, 2013 [facility] [place] [facility] [address] [id number] [place] [address]- [address] 17 Sep, 2012 [facility] [place] [facility] [address] [id number] [place] [address]- [address] 06 Sep, 2012 [facility] [place] [facility] [address] [id number] [place] [address]- [address] 04 Sep, 2012 [facility] [place] [facility] [address] [id number] [place] [address]- [address] 03 Sep2012 [facility] [place] [facility] [address] [id number] [place] [address] Dec, [facility] [place] [facility] [address] [id number] [place] [address]- [address] Dec, [facility] [place] [facility] [address] [id number] [place] [address]- [address] Dec, [facility] [place] [facility] [address] [id number] [place] [address] Dec, [facility] [place] [facility] [address] [id number] [place] [address]- [address] Dec, [facility] [place] [facility] [address] [id number] [place] [address]- [address] Dec, [facility] [place] [facility] [address] [id number] [place] [address]- [address] Dec, [facility] [place] [facility] [address] [id number] [place] [address] Dec, [facility] [place] [facility] [address] [id number] [place] [address] Nov, [facility] [place] [facility] [address] [id number] [place] [address] Nov, [facility] [place] [facility] [address] [id number] [place] [address] Nov, [facility] [place] [facility] [address] [id number] [address] Nov, [facility] [place] [facility] [address] [id number] [place] [address] Nov, [facility] [place] [facility] [address] [id number] [place] [address] Nov, [facility] [place] [facility] [address] [id number] [place] [address] Oct, [facility] [address] [id number] [place] [id number] Oct, [facility] [address] [id number] [place] [id number] Oct, [facility] [address] [facility] [id number] [place] [id number] Oct, [facility] [address] [facility] [id number] [place] [id number] Oct, [facility] [place] [facility] [address] [id number] [place] [address] Oct, [facility] [place] [facility] [address] [id number] [place] [address] Oct, [facility] [place] [facility] [address] [id number] [place] [address] Oct, [facility] [place] [facility] [address] [id number] [place] [address] Oct, [facility] [place] [facility] [address] [id number] [place] [address] Oct, [facility] [place] [facility] [address] [id number] [place] [address] Oct, [facility] [place] [facility] [address] [id number] [place] [address] September, [facility] [place] [facility] [address] [id number] [place] [address] Aug, [facility] [place] [facility] [address] [facility] [id number] [place] [address] Aug, [facility] [place] [facility] [address] [id number] [place] [address] Aug, [facility] [place] [facility] [address] [id number] [place] [address] Aug, [facility] [place] [facility] [address] [facility] [id number] [place] [id number] Jul, [facility] [place] [facility] [address] [facility] [id number] [place] [address] Jul, [facility] [place] [facility] [address] [facility] [id number] [place] [address] Jul, [facility] [address] [id number] [place] [address] 05 Jul, 2012 [facility] [address] [id number] [place] [address] 04 Jul, 2012 [facility] [address] [id number] [place] [address] 19 Jun, 2012 [facility] [address] [id number] [place] [address] 13 Jun, 2012 [facility] [address] [id number] [place] [address] 39[address] Jun, [facility] [address] [id number] [place] [address] May, [facility] [address] [id number] [place] [address]- [address] 24 May, 2012 [facility] [address] [id number] [place] [address] May, [facility] [address] [id number] [place] [address] May, [facility] [address] [id number] [place] [address] May, [facility] [address] [id number] [place] [address] May, [facility] [address] [id number] [place] [address] 18 Apr, 2012 [facility] [address] [id number] [place] [address] Apr, [facility] [address] [id number] [place] [address] Apr, [facility] [address] [id number] [place] [address] 13 Apr, 2012 [facility] [place] [facility] [address] [id number] [place] [address]- [address]698 Apr, [facility] [place] [facility] [address] [id number] [place] [address]- [address] Apr, [facility] [place] [facility] [address] [id number] [place] [address] Apr, [facility] [place] [facility] [address] [id number] [place] [address] Mar, [facility] [place] [facility] [address] [id number] [place] [address] Mar, [facility] [place] [facility] [address] [id number] [place] [address] Mar, [facility] [place] [facility] [address] [facility] [id number] [place] [address] Mar, [facility] [place] [facility] [address] [id number] [address] 18 Jan, 2012 [facility] [place] [facility] [address] [facility] [id number] [place] [address]- [address] Jan, [facility] [place] [facility] [address] [id number] [place] [address] Jan, [facility] [place] [facility] [address] [facility] [id number] [place] [address] Jan, [facility] [id number] [place] [id number] Dec, [facility] [place] [facility] [address] [id number] [place] [address] Dec, [facility] [address] [facility] [id number] [place] [id number] Dec, [facility] [place] [facility] [address] [id number] [place] [address] Dec, [facility] [place] [facility] [address] [facility] [id number] [place] [address] Dec, [facility] [place] [address] [facility] [id number] [place] [address] Dec, [facility] [place] [address] [facility] [id number] [place] [address] Nov, [facility] [place] [address] [facility] [id number] [place] [address] Nov, [facility] [place] [address] [facility] [id number] [place] [address] Nov, IMMUNIZATIONS No Known Immunizations SOCIAL HISTORY Never Assessed REASON FOR VISIT requesting referral PLAN OF CARE VITAL SIGNS MEDICATIONS No [...] uterus, unspecified Medical History Cataract Medical History Cervicalgia Medical History Sleep apnea, unspecified type Medical History Stent placed 08/2017- RCA and LCX Surgical History heart cath-mild LAD, moderate RCA stenosis 02/2012 Surgical History lumpectomy 2007 Surgical History appendectomy Surgical History dilatation and curettage 09/2011 Surgical History spine surgery-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
--- OUTSIDE RECORDS SUMMARY | 2017-09-10 10:22 | XMS REPORT ---
Author Author PAYAL VIGIL Organization [facility] Address [address] [place] [address] Care Team Providers Care Long Chain Beamer Name Role Phone PAYAL VIGIL Unavailable PROBLEMS Type Condition ICD9-CM Code ILO78-XR Code Onset Dates Condition Status SNOMED Code Problem Arthritis M19.90 Active 0056533 Problem Morbid obesity with BMI of 50.0-59.9, adult Z68.43 Active 167890862 Problem Personal history of pulmonary embolism Z86.711 Active 555133364 Problem Type 2 diabetes mellitus with diabetic neuropathic arthropathy, 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 Active 492865714 Problem Gastroesophageal reflux disease without esophagitis K21.9 Active 023638557 Problem Coronary artery disease I25.10 Active 27027421 Problem Renal stones N20.0 Active 49679189 Problem Hypothyroidism E03.9 Active 68703430 Problem Hyperlipidemia, unspecified hyperlipidemia type E78.5 Active 47578351 Problem Acute gout involving toe of right foot, 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 Active 176959750 Problem Intractable migraine without aura and with status migrainosus G43.011 Active 470066855 ALLERGIES Substance Reaction Event Type Date Status Phenergan hallucinations Drug Allergy Jan, Active Nexium anaphylaxis Drug Allergy Jan, Active Methylprednisolone nausea and vomiting Drug Allergy Jan, Active Levothyroxine Sodium rash Drug Allergy Jan, Active Honey Bee Venom Unknown Drug Allergy Jan, Active Dexamethasone nausea and vomiting Drug Allergy Jan, Active Azithromycin hives Drug Allergy Jan, Active Amoxicillin hives Drug Allergy Jan, Active Adhesive Unknown Non Drug Allergy Jan, Active Tape Unknown Non Drug Allergy Jan, Active ENCOUNTERS Encounter Location Date Diagnosis [facility] [address] [facility] [id number] [place] [address] Aug, Type 2 diabetes mellitus with diabetic [...] without aura and with status migrainosus G43.011 [place] [address] [address] Aug, [place] [address] [address] Aug, [place] [address] [address]- 2892 Jul, Renal stones N20.0 [facility] IN [facility] [address] [place] [id number] [place] [address]25 Jun, Back pain M54.9 ; Kidney stones N20.0 and BMI 50.0-59.9, adult Z68.43 [place] [address] [address]- [address] Jun, [place] [address] 28527- 2725 Apr, [place] [address] 12141- 7515 Apr, [place] [address] 84568- 5320 Apr, Right foot pain M79.671 ; Acute gout involving toe of right foot, 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 and Arthritis M19.90 [place] [address] [address]59- 6998 Apr, Gastroesophageal reflux disease without esophagitis K21.9 [place] [address] [address]3938- 1575 16 Mar, 2017 Hypothyroidism, unspecified E03.9 [place] [address] [place] [id number] [place] [address] 22054- 2106 11 Feb, 2017 [facility] [address] [address]- 6856 25 Jan, 2017 Cervicalgia of bzjuoalm-ddwdfbw-tocwh region M54.2 and Persistent headaches R51 [place] [address] [place] [id number] [place] [address] 05373- 8924 20 Jan, 2017 [place] [address] 11829- 8631 12 Jan, 2017 Intractable migraine without aura and with status migrainosus G43.011 ; Cervical spine pain M54.2 ; Hyperlipidemia, unspecified hyperlipidemia type E78.5 ; Hypothyroidism E03.9 and Metabolic syndrome E88.81 [place] [address] [place] [id number] [place] [address] 32956- 2107 Jan, Hypothyroidism, unspecified E03.9 [place] [address] [place] [id number] [place] [address] 70174- 8204 Dec, Hypothyroidism, unspecified E03.9 [place] [address] 59436- 2245 Dec, Hypothyroidism E03.9 [place] [address] [place] [id number] [place] [address] 50484- 5814 Nov, Laceration of left great toe w/o foreign body w/o damage to nail, initial encounter S91.112A [facility] [address] [place] [id number] [place] [address]25 -[address] Oct, Pain in left knee M25.562 and Arthritis M19.90 [place] [address] 96713- 7679 Oct, Hypothyroidism, unspecified E03.9 and Hyperlipidemia, unspecified hyperlipidemia type E78.5 [place] [address] [place] [id number] [place] [address] 85802- 5649 22 Rito, 2017 Gastroesophageal reflux disease without esophagitis K21.9 [place] [address] [place] [id number] [place] [address] 22089- 7575 14 Oct, 2016 Metabolic syndrome E88.81 ; Personal history of pulmonary embolism Z86.711 ; Other specified hypothyroidism E03.8 and Hyperlipidemia, unspecified hyperlipidemia type E78.5 [place] [address] [place] [id number] [place] [address] 70625- 1214 13 Oct, 2016 Personal history of pulmonary embolism Z86.711 ; Dysuria R30.0 ; Metabolic syndrome E88.81 ; Other specified hypothyroidism E03.8 ; Hyperlipidemia, unspecified hyperlipidemia type E78.5 and Morbid obesity with BMI of 50.0-59.9, adult Z68.43 [place] [address] [place] [id number] [place] [address] 24904- 5847 17 Sep, 2016 [facility] [address] [place] [id number] [place] [address] 20688 -0374 September, Wrist pain, left M25.532 and Acute pain of left knee M25.562 [place] [address] [place] [id number] [place] [address] 05451- 4748 Jul, Dysuria R30.0 [place] [address] [place] [id number] [place] [address] 89864- 2932 Jul, Dysuria R30.0 [place] [address] [place] [id number] [place] [address] 29315- 2127 Jul, Left lower quadrant pain R10.32 [place] [address] [place] [id number] [place] [address] 48099- 6642 14 Jul, 2016 [place] [address] [place] [id number] [place] [address] 49828- 9301 09 Jul, 2016 Coronary artery disease I25.10 ; Family history of diabetes mellitus Z83.3 ; Morbid obesity with BMI of 50.0-59.9, adult Z68.43 ; Metabolic syndrome E88.81 ; Personal history of pulmonary embolism Z86.711 ; Gastroesophageal reflux disease without esophagitis K21.9 ; Hypothyroidism, unspecified E03.9 ; Hyperlipidemia, unspecified hyperlipidemia type E78.5 and Left lower quadrant pain R10.32 [facility] [address] [address] 09 Jul, 2016 [facility] [address] 47111 [address]5182 08 Jul, 2016 Morbid obesity with BMI of 50.0-59.9, adult Z68.43 [facility] [address] [address] 07 Jul, 2016 Generalized abdominal pain R10.84 [facility] [address] 40984 [address]9582 02 Jun, 2016 Muscle strain of right upper back, initial encounter S29.012A [facility] [address] 72297 [address]6807 May, Foreign body (FB) in soft tissue M79.[address] 12511- 0127 Mar, Hypothyroidism, unspecified E03.9 and Arthritis M19.[address] 18372- 7939 Feb, Coronary artery disease I25.10 ; Morbid obesity with BMI of 50.0-59.9, adult Z68.43 ; Metabolic syndrome E88.81 ; Gastroesophageal reflux disease without esophagitis K21.9 ; Hypothyroidism, unspecified E03.9 ; Personal history of pulmonary embolism Z86.711 and Hyperlipidemia, unspecified hyperlipidemia type E78.[address] 34914- 1875 Feb, [facility] [address] 42569 [address]7432 Jan, Acute right-sided thoracic back pain M54.[address] 81730- 6327 Jan, Acute pain of left knee M25.562 [place] [address] [place] [id number] [place] [address] 49636- 6561 Dec, Dysuria R30.0 ; Metabolic syndrome E88.81 ; Acute pain of left knee M25.562 ; Acute cystitis with hematuria N30.01 and Acute left eye pain H57.12 [place] [address] 25638- 6180 Dec, [place] [address] [place] [id number] [place] [address] 72283- 8444 Dec, [place] [address] 02097- 3391 Dec, Hypothyroidism, unspecified E03.9 [place] [address] 96700- 8766 Dec, [place] [address] 83208- 4791 Nov, Peripheral edema R60.9 and Acute pain of left knee M25.562 [facility] [address] 36[address] September, [place] [address] [place] [id number] [place] [address] 65694- 8787 September, Metabolic syndrome E88.81 and Allergy, subsequent encounter T78.40XD [facility] [place] [id number] [place] [address]654 -7875 September, Muscle strain T14.8 [place] [address] 75492- 7600 Aug, Chest pressure R07.89 ; Metabolic syndrome E88.81 ; Morbid obesity with BMI of 50.0-59.9, adult Z68.43 ; Esophageal reflux 530.81 and Shortness of breath R06.02 [place] [address] [place] [id number] [place] [address] 16346- 6822 Aug, [facility] [address] [place] [id number] [place] [address] 73818- 8156 Aug, [facility] [address] 52256- 7325 Aug, Hypothyroidism, unspecified E03.9 [place] [address] 18634- 3389 Aug, Routine health maintenance Z00.00 [facility] [place] [address] 02413 -3527 Aug, [place] [address] 14067- 0557 Jul, Routine health maintenance Z00.00 ; Family history of diabetes mellitus Z83.3 ; Family history of cancer Z80.9 and Morbid obesity with BMI of 50.0-59.9, adult Z68.43 [facility] [place] [address] [address] [place] [id number] [place] [address] 34834 -2548 Jul, Allergic rhinitis J30.9 and Postnasal drip R09.[address] 43145- 8505 Jul, Influenza J11.1 [facility] [place] [id number] [place] [address] 75948 -4339 Jul, Dysuria R30.0 [place] [id number] [place] [address] 98009- 9916 Apr, [place] [address] [place] [id number] [place] [address] 82895- 4341 Mar, Acute upper respiratory infection, unspecified J06.9 and Hypothyroidism E03.9 [place] [address] [place] [id number] [place] [address] 58092- 0877 Mar, [place] [address] [place] [id number] [place] [address] 73420- 7169 Feb, Coronary artery disease I25.10 [place] [address] [address]- 2669 Feb, Left foot pain M79.672 [place] [address] [address]- 2844 Jan, UTI (urinary tract infection) 599.0 [place] [address] [place] [address] 79493- 2049 Jan, Urinary tract infection, site not specified 599.0 [place] [address] [place] [address] 94931- 0329 Jan, Urinary tract infection, site not specified 599.0 [place] [address] [place] [address] 11466- 1292 Jan, [place] [address] [place] [id number] [place] [address] 14554- 4683 Dec, Headache 784.0 [place] [address] [place] [address] 84294- 6295 Dec, Urinary tract infection, site not specified 599.0 [place] [address] [place] [address] 10062- 8495 Dec, Urinary tract infection, site not specified 599.0 [place] [address] [place] [address] 87846- 3542 Dec, Urinary tract infection, site not specified 599.0 [place] [address] [place] [id number] [address]- 9482 Nov, Unspecified sleep apnea 780.57 ; Encounter for long-term ( current) use of anticoagulants V58.61 ; Routine general medical examination at health care facility V70.0 and Arthritis of both knees 716.96 [place] [address] [place] [id number] [address]- 8142 September, Cat bite of hand 882.0 and Rectal bleeding 569.3 [place] [address] [id number] [place] [address]- 9523 14 Aug, 2014 [facility] [place] [facility] [address] [id number] [place] [address]- 0568 13 Aug, 2014 [facility] [place] [facility] [address] [id number] [place] [address]- 1546 30 Jul, 2014 [facility] [place] [facility] [address] [id number] [place] [address]- 3033 Jul, [facility] [place] [facility] [address] [id number] [place] [address]- 2253 Jul, [facility] [place] [facility] [address] [id number] [place] [address]- 4110 Jul, [facility] [place] [facility] [address] [id number] [place] [address]- 7042 Jul, [facility] [place] [facility] [address] [id number] [place] [address]- 0101 Jul, [facility] [place] [facility] [address] [id number] [place] [address]- 0798 Jul, [facility] [place] [facility] [address] [id number] [place] [address]- 5516 Jul, [facility] [place] [facility] [address] [id number] [place] [address]- 2605 May, [facility] [place] [facility] [address] [id number] [place] [address]- 2143 May, [facility] [place] [facility] [address] [id number] [place] [address]- 3063 May, [facility] [place] [facility] [address] [id number] [place] [address]- 6204 May, [facility] [place] [facility] [address] [id number] [place] [address]- 0466 May, [facility] [place] [facility] [address] [id number] [place] [address]- 2674 May, [facility] [place] [facility] [address] [id number] [place] [address]- 7266 15 May, 2014 [facility] [place] [facility] [address] [id number] [place] [address]- 6215 Mar, [facility] [place] [facility] [address] [id number] [place] [address]- 2512 Mar, [facility] [place] [facility] [address] [id number] [place] [address]- 0143 08 Jan, 2013 [facility] [place] [facility] [address] [id number] [place] [address]- 8415 08 Jan, 2013 [facility] [place] [facility] [address] [id number] [place] [address]- 8708 Jan, 2013 [facility] [place] [facility] [address] [id number] [place] [address]- 9755 Jan, 2013 [facility] [place] [facility] [address] [id number] [place] [address]- 9723 Jan, [facility] [place] [facility] [address] [id number] [place] [address]- 6931 Jan, [facility] [place] [facility] [address] [id number] [place] [address]- 0765 Dec, [facility] [place] [facility] [address] [id number] [place] [address]- 3568 Dec, [facility] [place] [facility] [address] [id number] [place] [address]- 2071 Dec, [facility] [place] [facility] [address] [id number] [place] [address]- 2864 Dec, [facility] [place] [facility] [address] [id number] [place] [address]- 9653 Dec, [facility] [place] [facility] [address] [id number] [place] [address]- 1210 Dec, [facility] [place] [facility] [address] [id number] [place] [address]- 7880 Dec, [facility] [place] [facility] [address] [id number] [place] [address]- 8048 Dec, [facility] [place] [facility] [address] [id number] [place] [address]- 3765 Dec, [facility] [place] [facility] [address] [id number] [place] [address]- 1017 Dec, [facility] [place] [facility] [address] [id number] [place] [address]- 7218 Nov, [facility] [place] [facility] [address] [id number] [place] [address]- 3843 Nov, [facility] [place] [facility] [address] [id number] [place] [address]- 0469 September, [facility] [place] [facility] [address] [id number] [place] [address]- 9469 September, [facility] [place] [facility] [address] [id number] [place] [address]- 4449 September, [facility] [place] [facility] [address] [id number] [place] [address]- 2672 September, [facility] [place] [facility] [address] [id number] [place] [address]- 0352 Aug, [facility] [place] [facility] [address] [id number] [place] [address]- 6759 Aug, [facility] [place] [facility] [address] [id number] [place] [address]- 3764 Aug, [facility] [place] [facility] [address] [id number] [place] [address]- 3553 Aug, [facility] [place] [facility] [address] [id number] [place] [address]- 1877 Aug, [facility] [place] [facility] [address] [id number] [place] [address]- 0477 Aug, [facility] [place] [facility] [address] [id number] [place] [address]- 3853 08 Aug, 2013 [facility] [place] [facility] [address] [id number] [place] [address]- 2667 08 Aug, 2013 [facility] [place] [facility] [address] [id number] [place] [address]- 5436 Aug, [facility] [place] [facility] [address] [id number] [place] [address]- 1035 Aug, [facility] [place] [facility] [address] [id number] [place] [address]- 4012 Aug, [facility] [place] [facility] [address] [id number] [place] [address]- 0736 Aug, [facility] [place] [facility] [address] [id number] [place] [address]- 1541 Jul, [facility] [place] [facility] [address] [id number] [place] [address]- 9918 Jul, [facility] [place] [facility] [address] [id number] [place] [address]- 6503 Jul, [facility] [place] [facility] [address] [id number] [place] [address]- 0726 Jul, [facility] [place] [facility] [address] [id number] [place] [address]- 1273 Jul, [facility] [place] [facility] [address] [id number] [place] [address]- 3060 Jul, [facility] [place] [facility] [address] [id number] [place] [address]- 6725 05 Jul, 2013 [facility] [place] [facility] [address] [id number] [place] [address]- 3705 Jul, [facility] [place] [facility] [address] [id number] [place] [address]- 8302 Jul, [facility] [place] [facility] [address] [id number] [place] [address]- 7921 Jul, [facility] [place] [facility] [address] [id number] [place] [address]- 0509 Jun, [facility] [place] [facility] [address] [id number] [place] 8236 Jun, [facility] [place] [facility] [address] [id number] [place] [address]- 4206 Jun, [facility] [place] [facility] [address] [id number] [place] [address]- 4832 Jun, [facility] [place] [facility] [address] [id number] [place] [address]- 8096 Jun, [facility] [place] [facility] [address] [id number] [place] [address]- 4526 Jun, [facility] [place] [facility] [address] [facility] [id number] [place] [address]- 0564 Jun, [facility] [place] [facility] [address] [id number] [place] [address]- 6516 Jun, [facility] [place] [facility] [address] [id number] [place] [address]- 9446 Jun, [facility] [place] [facility] [address] [facility] [id number] [place] [address]- 7158 Jun, [facility] [place] [facility] [address] [facility] [id number] [place] [address]- 1010 Jun, [facility] [place] [facility] [address] [facility] [id number] [place] [address]- 1766 Jun, [facility] [place] [facility] [address] [id number] [place] [address]- 9416 May, [facility] [place] [facility] [address] [id number] [place] [address]- 4928 May, [facility] [place] [facility] [address] [facility] [id number] [place] [address]- 0988 May, [facility] [address] [id number] [place] [address]- 3733 May, [facility] [place] [facility] [address] [id number] [place] [address]- 8066 May, [facility] [place] [facility] [address] [id number] [place] [address]- 3320 May, [facility] [place] [facility] [address] [id number] [place] [address]- 0689 May, [facility] [place] [facility] [address] [id number] [place] [address]- 1287 May, [facility] [place] [facility] [address] [id number] [place] [address]- 9216 May, [facility] [place] [facility] [address] [id number] [place] [address]- 3816 May, [facility] [place] [facility] [address] [id number] [place] [address]- 0108 May, [facility] [place] [facility] [address] [id number] [place] [address]- 8782 May, [facility] [place] [facility] [address] [id number], [place] [address]- 6620 May, [facility] [place] [facility] [address] [id number], [place] [address]- 1092 May, [facility] [place] [facility] [address] [id number], [place] [address]- 5916 May, [facility] [place] [facility] [address] [id number] [place] [address]- 9701 Apr, [facility] [place] [facility] [address] [id number] [place] [address]- 2916 Apr, [facility] [place] [facility] [address] [id number], [place] [address] Apr, [facility] [place] [facility] [address] [id number], [place] [address] Apr, [facility] [address] [id number] [place] [address] Mar, [facility] [place] [facility] [address] [id number] [place] [address] Mar, [facility] [place] [facility] [address] [facility] [id number] [place] [address] Mar, [facility] [place] [facility] [address] [id number] [place] [address] Mar, [facility] [place] [facility] [address] [id number] [place] [address] Mar, [facility] [place] [facility] [address] [id number] [place] [address] Mar, [facility] [place] [facility] [address] [id number] [place] [address] Mar, [facility] [place] [facility] [address] [facility] [id number] [place] [address] Mar, [facility] [place] [facility] [address] [facility] [id number], [place] [address] Mar, [facility] [place] [facility] [address] [facility] [id number], [place] [address] Mar, [facility] [place] [facility] [address] [facility] [id number], [place] [address] Mar, [facility] [place] [facility] [address] [facility] [id number], [place] [address] Mar, [facility] [place] [facility] [address] [id number], [place] [address] 03 Feb, 2013 [facility] [place] [facility] [address] [facility] [id number], [place] [address] 18 Jan, 2013 [facility] [place] [facility] [address] [facility] [id number], [place] [address] 17 Sep2012 [facility] [place] [facility] [address] [id number] [place] [address] 06 Jan, 2012 [facility] [place] [facility] [address] [id number] [place] [address] 04 Jan, 2013 [facility] [place] [facility] [address] [id number] [place] [address] Jan, [facility] [place] [facility] [address] [id number] [place] [address] Dec, [facility] [place] [facility] [address] [id number] [place] [address] Dec, [facility] [place] [facility] [address] [id number] [place] [address] Dec, [facility] [place] [facility] [address] [id number] [place] [address] Dec, [facility] [place] [facility] [address] [id number] [place] [address] Dec, [facility] [place] [facility] [address] [id number] [place] [address] Dec, [facility] [place] [facility] [address] [id number] [place] [address] Dec, [facility] [facility] [address] [id number] [place] [address] Dec, [facility] [place] [facility] [address] [id number] [place] [address] Nov, [facility] [place] [facility] [address] [id number] [place] [address] Nov, [facility] [place] [facility] [address] [id number] [place] [address] Nov, [facility] [place] [facility] [address] [id number] [place] [address] Nov, [facility] [place] [facility] [address] [id number] [place] [address] Nov, [facility] [place] [facility] [address] [id number] [place] [address] Nov, [facility] [place] [facility] [address] [id number] [place] [address] Oct, [facility] [address] [id number] [place] [id number] Oct, [facility] [address] [id number] [place] [id number] Oct, [facility] [address] [id number] [place] [id number] Oct, [facility] [address] [id number] [place] [id number] Oct, [facility] [place] [facility] [address] [id number] [place] [address] Oct, [facility] [place] [facility] [address] [id number] [place] [address] Oct, [facility] [place] [facility] [address] [id number] [place] [address] Oct, [facility] [place] [facility] [address] [facility] [id number] [place] [address] Oct, [facility] [place] [facility] [address] [facility] [id number] [place] [address] Oct, [facility] [place] [facility] [address] [facility] [id number] [place] [address] Oct, [facility] [place] [facility] [address] [facility] [id number], [place] [address] September, [facility] [place] [facility] [address] [id number] [place] [address] Aug, [facility] [place] [facility] [address] [facility] [id number] [place] [address] Aug, [facility] [place] [facility] [address] [id number], [place] [address] Aug, [facility] [place] [facility] [address] [id number] [place] [address] Aug, [facility] [address] [id number] [place] [address] 24 Jul, 2012 [facility] [place] [facility] [address] [id number] [place] [address] Jul, [facility] [place] [facility] [address] [id number] [place] [address] Jul, [facility] [address] [id number] [place] [address] Jul, [facility] [place] [facility] [address] [id number] [place] [address] Jul, [facility] [address] [id number] [place] [address] Jun, [facility] [address] [id number] [place] [address] Jun, [facility] [address] [id number] [place] [address] Jun, [facility] [address] [id number] [place] [address] May, [facility] [place] [facility] [address] [id number] [place] [address] May, [facility] [place] [facility] [address] [id number] [place] [address] May, [facility] [place] [facility] [address] [id number] [place] [address] May, [facility] [place] [facility] [address] [id number] [place] [address] May, [facility] [place] [facility] [address] [id number] [place] [address] May, [facility] [place] [facility] [address] [id number], [place] [address] 18 Apr, 2012 [facility] [address] [id number] [place] [address] 18 Apr, 2012 [facility] [place] [facility] [address] [id number][place] [address] 13 Apr, 2012 [facility] [address] [id number] [place] [address] 13 Apr, 2012 [facility] [place] [facility] [address] [id number], [place] [address] 13 Apr, 2012 [facility] [address] [id number] [place] [address] Apr, [facility] [place] [facility] [address] [facility] [id number], [place] [address] Apr, [facility] [address] [id number], [place] [address] Mar, [facility] [place] [facility] [address] [id number], [place] [address] Mar, [facility] [address] [id number], [place] [address] Mar, [facility] [place] [facility] [address] [facility] [id number], [place] [address] Mar, [facility] [place] [facility] [address] [id number], [place] [address] 18 Jan, 2012 [facility] [place] [facility] [address] [facility] [id number], [place] [address] 10 Jan, 2012 [facility] [place] [facility] [address] [id number], [place] [address] Jan, [facility] [place] [facility] [address] [facility] [id number], [place] [address] Jan, [facility] [address] [facility] [id number] [id number] Dec, [facility] [place] [facility] [address] [facility] [id number], [place] [address] Dec, [facility] [address] [id number] [id number] Dec, [facility] [address] [id number], [place] [address] Dec, [facility] [id number], [place] [address] Dec, [facility] [id number], [place] [address] Dec, [facility] [id number] [place] [address] Nov, [facility] [id number], [place] [address] Nov, [facility] [id number], [place] [address] Nov, IMMUNIZATIONS No Known Immunizations SOCIAL HISTORY Never Assessed REASON FOR VISIT Palpatations, SOB, dizziness---DBennettRN, headache x 4 week, unlike normal migraine, rec'd shot at ER, no relief, requesting refills on simvastatin and levothyroxine, hands cracked and bleeding, feels due to levothyroxine PLAN OF CARE Activity Details Follow Up 3 Months Reason:[facility] Height 64 in 2017-01-20 Weight 320 lbs 2017-01-20 Temperature 98.3 degrees Fahrenheit 2017-01-20 Heart Rate 70 bpm 2017-01-20 Respiratory Rate 20 2017-01-20 BMI 54.92 kg/m2 2017-01-20 Blood pressure systolic 120 mmHg 2017-01-20 Blood pressure diastolic 70 mmHg 2017-01-20 MEDICATIONS Medication Instructions Dosage Frequency Start Date End Date Duration Status Levothyroxine Sodium 150 MCG Orally Once a day TAKE ONE TABLET BY MOUTH ONCE DAILY IN THE MORNING ON AN EMPTY STOMACH 24h 30 days Active Test strips Test Strips ICD10- E11.9 fasting and 2 hours after one meal daily 2 times weekly. test blood sugar Aug, Active Glucometer glucometer ICD10- E11.9 fasting and 2 hours after one meal daily 3 times weekly. test blood sugar Aug, Active Tizanidine HCl 4 MG Orally Three times a day 1 tablet as needed 8h Jan, Feb, 30 days Active Warfarin Sodium 7.5 MG Orally 3x weekly 1 tablet Active Simvastatin 20 MG Orally Once a day 1 tablet in the evening 24h Aug, 90 days Active Albuterol Sulfate 90 mcg/actuation Inhalation every 4 hrs inhale 1 puff by inhalation route every 4 hours as needed 4h Jun, 30 days Active Tylenol Extra Strength 500 MG Nov, Active Omeprazole 20 mg Orally Once a day 1 tablet 24h Jan, 30 days Active Warfarin Sodium 5 mg Orally 4x weekly 1 tablet Active Albuterol Sulfate 2.5 mg /3 mL (0.083 %) 1 Each by Inhalation route every 4 hours for cough and wheezePRNfor wheezing or cough Nov, Active RESULTS Name Result Date Reference Range A1C (IN HOUSE) 2017-01-20 A1C IN HOUSE 6.5 4.3 - 5.6 % Previous A1c Lot [id number] Exp date 09/26 Xray : Spine, Cervical (IN HOUSE) 2017-01-20 PROCEDURES Procedure Date Ordered Result Body Site X-RAY EXAM OF NECK SPINE Jan 20, 2017 [facility] VISIT ESTABLISHED PATIENT Jan 20, 2017 GLYCATED HEMOGLOBIN TEST Jan 20, 2017 INSTRUCTIONS MEDICATIONS ADMINISTERED No Known Medications [...]
--- OUTSIDE RECORDS SUMMARY | 2017-09-10 10:41 | XMS REPORT | Continuity of Care Document ---
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 GENERALIZED ABDOMINAL PAIN 08/19/2017 KAVYA PATRICK DONOR CENTER TECHNICIAN Ot Z68.43 BODY MASS INDEX (BMI) 50-59.9 , ADULT 08/19/2017 REAGAN MCNEILL MD, Ot Z51.81 ENCOUNTER FOR THERAPEUTIC DRUG LEVEL MON 08/19/2017 REAGAN MCNEILL MD, Ot Z79.01 HALFWAY (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 OF 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 08/19/2017 REAGAN MCNEILL MD, Ot Z86.711 PERSONAL HISTORY OF PULMONARY EMBOLISM 08/19/2017 PAYAL VIGIL APRN Ot M54.2 CERVICALGIA 08/19/2017 PAYAL VIGIL APRN Ot Z53.29 PROC/TRTMT NOT CRD OUT BEC PT DECISION F 08/19/2017 REAGAN MCNEILL MD, Ot Z51.81 ENCOUNTER FOR THERAPEUTIC DRUG LEVEL MON 08/19/2017 REAGAN MCNEILL MD, Ot Z79.01 HALFWAY (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 OF 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 08/19/2017 REAGAN MCNEILL MD, Ot Z86.711 PERSONAL HISTORY OF PULMONARY EMBOLISM 08/19/2017 PAYAL VIGIL APRN Ot J98.11 ATELECTASIS 08/19/2017 PAYAL VIGIL APRN Ot Z87.442 PERSONAL HISTORY OF URINARY CALCULI 08/19/2017 MICHAEL WAGNER Ot I10 ESSENTIAL (PRIMARY) HYPERTENSION 08/19/2017 MICHAEL WAGNER Ot I25.10 ATHSCL HEART DISEASE OF [place] CORONARY 08/19/2017 MICHAEL WAGNER Ot R06.09 OTHER FORMS OF DYSPNEA 08/19/2017 MICHAEL WAGNER Ot R07.89 OTHER CHEST PAIN 08/20/2017 REAGAN MCNEILL MD Ot E03.9 HYPOTHYROIDISM, UNSPECIFIED 08/20/2017 REAGAN MCNEILL MD Ot E66.9 OBESITY, UNSPECIFIED 08/20/2017 REAGAN MCNEILL MD Ot E78.5 HYPERLIPIDEMIA, UNSPECIFIED 08/20/2017 REAGAN MCNEILL MD Ot I10 ESSENTIAL (PRIMARY) HYPERTENSION 08/20/2017 REAGAN MCNEILL MD Ot I25.110 ATHSCL HEART DISEASE OF [place] COR ART W 08/20/2017 REAGAN MCNEILL MD Ot I77.1 STRICTURE OF ARTERY 08/20/2017 REAGAN MCNEILL MD, Ot J45.909 UNSPECIFIED ASTHMA, UNCOMPLICATED 08/20/2017 REAGAN MCNEILL MD Ot R82.90 UNSPECIFIED ABNORMAL FINDINGS IN URINE 08/20/2017 REAGAN MCNEILL MD Ot Z68.43 BODY MASS INDEX (BMI) 50-59.9 , ADULT 08/20/2017 REAGAN MCNEILL MD Ot Z79.01 DOMESTIC HOUSEKEEPER (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 OF 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 08/20/2017 REAGAN MCNEILL [...] HISTORY OF COLONIC POLYPS 08/20/2017 PAYAL VIGIL DONOR CENTER TECHNICIAN Ot M54.6 PAIN IN THORACIC SPINE 08/20/2017 AKVYA PATRICK DONOR CENTER TECHNICIAN Ot E66.01 MORBID (SEVERE) OBESITY DUE TO EXCESS CA 08/20/2017 KAVYA PATRICK DONOR CENTER TECHNICIAN Ot R10.84 GENERALIZED ABDOMINAL PAIN 08/20/2017 KAVYA PATRICK DONOR CENTER TECHNICIAN Ot Z68.43 BODY MASS INDEX (BMI) 50-59.9 , ADULT 08/20/2017 REAGAN MCNEILL MD, Ot Z51.81 ENCOUNTER FOR THERAPEUTIC DRUG LEVEL MON 08/20/2017 REAGAN MCNEILL MD, Ot Z79.01 HALFWAY (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 OF 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 08/20/2017 REAGAN MCNEILL MD, Ot Z86.711 PERSONAL HISTORY OF PULMONARY EMBOLISM 08/20/2017 PAYAL VIGIL APRN Ot M54.2 CERVICALGIA 08/20/2017 PAYAL VIGIL APRN Ot Z53.29 PROC/TRTMT NOT CRD OUT BEC PT DECISION F 08/20/2017 REAGAN MCNEILL MD, Ot Z51.81 ENCOUNTER FOR THERAPEUTIC DRUG LEVEL MON 08/20/2017 REAGAN MCNEILL MD, Ot Z79.01 DOMESTIC HOUSEKEEPER (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 OF 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 08/20/2017 REAGAN MCNEILL MD, Ot Z86.711 PERSONAL HISTORY OF PULMONARY EMBOLISM 08/20/2017 PAYAL VIGIL APRN Ot J98.11 ATELECTASIS 08/20/2017 PAYAL VIGIL APRN Ot Z87.442 PERSONAL HISTORY OF URINARY CALCULI 08/20/2017 MICHAEL WAGNER Ot I10 ESSENTIAL (PRIMARY) HYPERTENSION 08/20/2017 MICHAEL WAGNER Ot I25.10 ATHSCL HEART DISEASE OF [place] CORONARY 08/20/2017 MICHAEL WAGNER Ot R06.09 OTHER FORMS OF DYSPNEA 08/20/2017 MICHAEL WAGNER Ot R07.89 OTHER CHEST PAIN 08/20/2017 SHALOM RAMÍREZ APRN Ot E03.9 HYPOTHYROIDISM, UNSPECIFIED 08/20/2017 SHALOM RAMÍREZ APRN Ot E66.01 MORBID (SEVERE) OBESITY DUE TO EXCESS CA 08/20/2017 SHALOM RAMÍREZ APRN Ot E78.00 PURE HYPERCHOLESTEROLEMIA, UNSPECIFIED 08/20/2017 SHALOM RAMÍREZ APRN Ot G47.30 SLEEP APNEA, UNSPECIFIED 08/20/2017 SHALOM RAMÍREZ APRN Ot I10 ESSENTIAL (PRIMARY) HYPERTENSION 08/20/2017 SHALOM RAMÍREZ APRN Ot I20.8 OTHER FORMS OF ANGINA PECTORIS 08/20/2017 SHALOM RAMÍREZ APRN Ot I25.10 ATHSCL HEART DISEASE OF [place] CORONARY 08/20/2017 SHALOM RAMÍREZ APRN Ot I73.9 PERIPHERAL VASCULAR DISEASE, UNSPECIFIED 08/20/2017 SHALOM RAMÍREZ APRN Ot J44.9 CHRONIC OBSTRUCTIVE PULMONARY DISEASE, U 08/20/2017 SHALOM RAMÍREZ APRN Ot K21.9 GASTRO-ESOPHAGEAL REFLUX DISEASE WITHOUT 08/20/2017 SHALOM RAMÍREZ APRN Ot R07.2 PRECORDIAL PAIN 08/20/2017 SHALOM RAMÍREZ APRN Ot Z68.43 BODY MASS INDEX (BMI) 50-59.9 , ADULT 08/20/2017 SHALOM RAMÍREZ APRN Ot Z79.01 HALFWAY (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 OF 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 08/20/2017 SHALOM RAMÍREZ APRN Ot Z79.02 DOMESTIC HOUSEKEEPER (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 OF ANTITHROMBOTI 08/20/2017 SHALOM RAMÍREZ APRN Ot Z79.51 DOMESTIC HOUSEKEEPER (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 OF INHALED STERO 08/20/2017 SHALOM RAMÍREZ APRN Ot Z79.82 HALFWAY (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 OF ASPIRIN 08/20/2017 SHALOM RAMÍREZ APRN Ot Z80.0 FAMILY HISTORY OF MALIGNANT NEOPLASM OF 08/20/2017 SHALOM RAMÍREZ APRN Ot Z82.49 FAMILY HX OF ISCHEM HEART DIS AND OTH DI 08/20/2017 SHALOM RAMÍREZ APRN Ot Z85.038 PERSONAL HISTORY OF MALIGNANT NEOPLASM O 08/20/2017 SHALOM RAMÍREZ APRN Ot Z86.718 PERSONAL HISTORY OF OTHER VENOUS THROMBO 08/20/2017 SHALOM RAMÍREZ APRN Ot Z87.01 PERSONAL HISTORY OF PNEUMONIA (RECURRENT 08/20/2017 SHALOM RAMÍREZ APRN Ot Z87.442 PERSONAL HISTORY OF URINARY CALCULI 08/20/2017 SHALOM RAMÍREZ APRN Ot Z87.448 PERSONAL HISTORY OF OTHER DISEASES OF UR 08/20/2017 SHALOM RAMÍREZ APRN Ot Z88.0 ALLERGY STATUS TO PENICILLIN 08/20/2017 SHALOM RAMÍREZ APRN Ot Z88.8 ALLERGY STATUS TO OTH DRUG/MEDS/BIOL SUB 08/20/2017 SHALOM RAMÍREZ APRN Ot Z90.49 ACQUIRED ABSENCE OF OTHER SPECIFIED PART 08/20/2017 SHALOM RAMÍREZ APRN Ot Z90.710 ACQUIRED ABSENCE OF BOTH CERVIX AND UTER 08/20/2017 SHALOM RAMÍREZ APRN Ot Z90.89 ACQUIRED ABSENCE OF OTHER ORGANS 08/20/2017 SHALOM RAMÍREZ DONOR CENTER TECHNICIAN Ot Z91.048 OTHER NONMEDICINAL SUBSTANCE ALLERGY STA 08/20/2017 SHALOM RAMÍREZ DONOR CENTER TECHNICIAN Ot Z97.5 PRESENCE OF (INTRAUTERINE) CONTRACEPTIVE 08/20/2017 Ot 723.1 CERVICALGIA 08/20/2017 Ot V45.4 [...] Ot 610.3 FIBROSCLEROSIS OF BREAST 08/20/2017 GARETT NAM ACE Z Ot V58.61 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S,LT,CURRENT USE 08/20/2017 [...] V25.42 IUD SURVEILLANCE 08/20/2017 CAYDEN MOYA CHAS Amanda Ot R10.2 PELVIC AND PERINEAL PAIN 08/20/2017 BALDEV LITTLEJOHN DO Ot R10.2 PELVIC AND PERINEAL PAIN 08/20/2017 BALDEV LITTLEJOHN DO Ot R10.10 UPPER ABDOMINAL PAIN, UNSPECIFIED 08/20/2017 BALDEV LITTLEJOHN DO Ot Z01.818 ENCOUNTER FOR OTHER PREPROCEDURAL EXAMIN 08/20/2017 CAYDEN MOYA CHAS Patel Ot D25.9 LEIOMYOMA OF UTERUS, UNSPECIFIED 08/20/2017 CAYDEN MOYA CHAS Amanda Ot Z01.812 ENCOUNTER FOR PREPROCEDURAL LABORATORY E 08/20/2017 CAYDEN MOYA CHAS Amanda Ot Z11.2 ENCOUNTER FOR SCREENING FOR OTHER BACTER 08/20/2017 CHEN INFANTE APRN Ot J06.9 ACUTE UPPER RESPIRATORY INFECTION, UNSPE 08/20/2017 TONY MOYA MIGDALIA D Ot 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 08/20/2017 MIGDALIA JIMENEZ DO Ot E03.9 HYPOTHYROIDISM, UNSPECIFIED 08/20/2017 TONY MIGDALIA D Ot Z86.010 PERSONAL HISTORY OF COLONIC POLYPS 08/20/2017 PAYAL VIGIL APRN Ot M54.6 PAIN IN THORACIC SPINE 08/20/2017 KAVYA PATRICK DONOR CENTER TECHNICIAN Ot E66.01 MORBID (SEVERE) OBESITY DUE TO EXCESS CA 08/20/2017 KAVYA PATRICK DONOR CENTER TECHNICIAN Ot R10.84 GENERALIZED ABDOMINAL PAIN 08/20/2017 KAVYA PATRICK DONOR CENTER TECHNICIAN Ot Z68.43 BODY MASS INDEX (BMI) 50-59.9 , ADULT 08/20/2017 REAGAN MCNEILL MD, Ot Z51.81 ENCOUNTER FOR THERAPEUTIC DRUG LEVEL MON 08/20/2017 REAGAN MCNEILL MD, Ot Z79.01 HALFWAY (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 OF 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 08/20/2017 REAGAN MCNEILL MD, Ot Z86.711 PERSONAL HISTORY OF PULMONARY EMBOLISM 08/20/2017 PAYAL VIGIL APRN Ot M54.2 CERVICALGIA 08/20/2017 PAYAL VIGIL APRN Ot Z53.29 PROC/TRTMT NOT CRD OUT BEC PT DECISION F 08/20/2017 REAGAN MCNEILL MD, Ot Z51.81 ENCOUNTER FOR THERAPEUTIC DRUG LEVEL MON 08/20/2017 REAGAN MCNEILL MD, Ot Z79.01 DOMESTIC HOUSEKEEPER (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 OF 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 08/20/2017 REAGAN MCNEILL MD, Ot Z86.711 PERSONAL HISTORY OF PULMONARY EMBOLISM 08/20/2017 PAYAL VIGIL APRN Ot J98.11 ATELECTASIS 08/20/2017 PAYAL VIGIL APRN Ot Z87.442 PERSONAL HISTORY OF URINARY CALCULI 08/20/2017 MICHAEL WAGNER Ot I10 ESSENTIAL (PRIMARY) HYPERTENSION 08/20/2017 MICHAEL WAGNER Ot I25.10 ATHSCL HEART DISEASE OF [place] CORONARY 08/20/2017 MICHAEL WAGNER Ot R06.09 OTHER [...] Ot 610.3 FIBROSCLEROSIS OF BREAST 08/20/2017 GARETT NAM ACE Z Ot V58.61 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S,LT,CURRENT USE 08/20/2017 [...] Ot 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 08/20/2017 CHAS RDOARTE DO Ot 625.9 FEM GENITAL SYMPTOMS NOS 08/20/2017 CHAS RODARTE DO Ot 626.8 MENSTRUAL DISORDER NEC 08/20/2017 CHAS RODARTE DO Ot 627.1 POSTMENOPAUSAL BLEEDING 08/20/2017 CHAS RODARTE DO Ot V72.84 EXAM PRE-OPERATIVE NOS 08/20/2017 CHAS RODARTE DO Ot V74.8 SCREEN-BACTERIAL DIS NEC 08/20/2017 CAYDEN MOYA CHAS Patel Ot 789.03 ABDOMINAL PAIN, RIGHT LOWER QUADRANT [...] 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 ENDOMETRIAL HYPERPLASIA WITHOUT 08/20/2017 CAYDEN DO CHAS Amanda Ot V25.42 IUD SURVEILLANCE 08/20/2017 CAYDEN DO CHAS Amanda Ot R10.2 PELVIC AND PERINEAL PAIN 08/20/2017 BALDEV LITTLEJOHN DO Ot R10.2 PELVIC AND PERINEAL PAIN 08/20/2017 BALDEV LITTLEJOHN DO Ot R10.10 UPPER ABDOMINAL PAIN, UNSPECIFIED 08/20/2017 BALDEV LITTLEJOHN DO Ot Z01.818 ENCOUNTER FOR OTHER PREPROCEDURAL EXAMIN 08/20/2017 CAYDEN CHAS MOYA Ot D25.9 LEIOMYOMA OF UTERUS, UNSPECIFIED 08/20/2017 CAYDEN CHAS MOYA Ot Z01.812 ENCOUNTER FOR PREPROCEDURAL LABORATORY E 08/20/2017 CHASTITYCHAS JOHNSON DO Ot Z11.2 ENCOUNTER FOR SCREENING FOR OTHER BACTER 08/20/2017 CHEN INFANTE APRN Ot J06.9 ACUTE UPPER RESPIRATORY INFECTION, UNSPE 08/20/2017 MIGDALIA JIMENEZ DO Ot 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 08/20/2017 MIGDALIA JIMENEZ DO Ot E03.9 HYPOTHYROIDISM, UNSPECIFIED 08/20/2017 TONY MOYA MGIDALIA D Ot Z86.010 PERSONAL HISTORY OF COLONIC POLYPS [...] MON 08/20/2017 REAGAN MCNEILL MD, Ot Z79.01 HALFWAY (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 OF 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 08/20/2017 REAGAN MCNEILL MD, Ot Z86.711 PERSONAL HISTORY OF PULMONARY EMBOLISM 08/20/2017 PAYAL VIGIL APRN Ot M54.2 CERVICALGIA 08/20/2017 PAYAL VIGIL APRN Ot Z53.29 PROC/TRTMT NOT CRD OUT BEC PT DECISION F 08/20/2017 REAGAN MCNEILL MD, Ot Z51.81 ENCOUNTER FOR THERAPEUTIC DRUG LEVEL MON 08/20/2017 REAGAN MCNEILL MD, Ot Z79.01 DOMESTIC HOUSEKEEPER (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 OF 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 08/20/2017 REAGAN MCNEILL MD, Ot Z86.711 PERSONAL HISTORY OF PULMONARY EMBOLISM 08/20/2017 PAYAL VIGIL APRN Ot J98.11 ATELECTASIS 08/20/2017 PAYAL VIGIL APRN Ot Z87.442 PERSONAL HISTORY OF URINARY CALCULI 08/20/2017 MICHAEL WAGNER Ot I10 ESSENTIAL (PRIMARY) HYPERTENSION 08/20/2017 MICHAEL WAGNER Ot I25.10 ATHSCL HEART DISEASE OF [place] CORONARY 08/20/2017 MICHAEL WAGNER Ot R06.09 OTHER FORMS OF DYSPNEA 08/20/2017 MICHAEL WAGNER Ot R07.89 OTHER CHEST PAIN 08/20/2017 REAGAN MCNEILL MD Ot E78.5 HYPERLIPIDEMIA, UNSPECIFIED 08/20/2017 REAGAN MCNEILL MD, Ot I10 ESSENTIAL (PRIMARY) HYPERTENSION 08/20/2017 REAGAN MCNEILL MD Ot I25.110 ATHSCL HEART DISEASE OF [place] COR ART W 08/20/2017 REAGAN MCNEILL MD [...] Ot 610.3 FIBROSCLEROSIS OF BREAST 08/21/2017 GARETT NAM ACE Z Ot V58.61 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S,LT,CURRENT USE 08/21/2017 GARETT NAM ACE Z Ot V58.83 ENCOUNTER [...] DO Ot 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 08/21/2017 FENECH CHAS MOYA Ot 625.9 FEM GENITAL SYMPTOMS NOS 08/21/2017 CAYDEN MOYA CHAS Patel Ot 626.8 MENSTRUAL DISORDER NEC 08/21/2017 CAYDEN CHAS MOYA Ot 627.1 POSTMENOPAUSAL BLEEDING 08/21/2017 CAYDEN MOYA CHAS Amanda Ot V72.84 EXAM PRE-OPERATIVE NOS 08/21/2017 CAYDEN MOYA CHAS Amanda Ot V74.8 SCREEN-BACTERIAL DIS NEC 08/21/2017 CAYDEN CHAS MOYA Ot 789.03 ABDOMINAL PAIN, RIGHT LOWER QUADRANT 08/21/2017 CHARLES FREED Ot 729.5 PAIN IN LIMB 08/21/2017 CATERINA SHAH DO Ot 278.1 LOCALIZED ADIPOSITY 08/21/2017 CATERINA SHAH DO Ot 493.90 ASTHMA, UNSPECIFIED 08/21/2017 CATERINA SHAH DO Ot 786.09 RESPIRATORY ABNORM NEC 08/21/2017 BALDEV LITTLEJOHN DO Ot 569.3 RECTAL ANAL HEMORRHAGE 08/21/2017 BALDEV LITTLEJOHN DO Ot V72.84 EXAM PRE-OPERATIVE NOS 08/21/2017 CAYDEN DO CHAS Amanda Ot 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 08/21/2017 CAYDEN CHAS MOYA Ot 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 ENDOMETRIAL HYPERPLASIA WITHOUT 08/21/2017 CHAS RODARTE DO Ot V25.42 IUD SURVEILLANCE 08/21/2017 CHAS RODARTE DO Ot R10.2 PELVIC AND PERINEAL PAIN 08/21/2017 BALDEV LITTLEJOHN DO Ot R10.2 PELVIC AND PERINEAL PAIN 08/21/2017 BALDEV LITTLEJOHN DO Ot R10.10 UPPER ABDOMINAL PAIN, UNSPECIFIED 08/21/2017 BALDEV LITTLEJOHN DO Ot Z01.818 ENCOUNTER FOR OTHER PREPROCEDURAL EXAMIN 08/21/2017 CHASTITYCHAS JOHNSON DO Ot D25.9 LEIOMYOMA OF UTERUS, UNSPECIFIED 08/21/2017 CHAS RODARTE DO Ot Z01.812 ENCOUNTER FOR PREPROCEDURAL LABORATORY E 08/21/2017 CHAS RODARTE DO Ot Z11.2 ENCOUNTER FOR SCREENING FOR OTHER BACTER 08/21/2017 CHEN INFANTE APRN Ot J06.9 ACUTE UPPER RESPIRATORY INFECTION, UNSPE 08/21/2017 MIGDALIA JIMENEZ DO Ot 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 08/21/2017 TONY MOYA MIGDALIA D Ot E03.9 HYPOTHYROIDISM, UNSPECIFIED 08/21/2017 MIGDALIA JIMENEZ DO Ot Z86.010 PERSONAL HISTORY OF COLONIC POLYPS 08/21/2017 PAYAL VIGIL APRN Ot M54.6 PAIN IN THORACIC SPINE 08/21/2017 KAVYA PATRICK DONOR CENTER TECHNICIAN Ot E66.01 MORBID (SEVERE) OBESITY DUE TO EXCESS CA 08/21/2017 KAVYA PATRICK DONOR CENTER TECHNICIAN Ot R10.84 GENERALIZED ABDOMINAL PAIN 08/21/2017 KAVYA PATRICK APRN Ot Z68.43 BODY MASS INDEX (BMI) 50-59.9 , ADULT 08/21/2017 REAGAN MCNEILL MD, Ot Z51.81 ENCOUNTER FOR THERAPEUTIC DRUG LEVEL MON 08/21/2017 REAGAN MCNEILL MD, Ot Z79.01 DOMESTIC HOUSEKEEPER (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 OF 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 08/21/2017 REAGAN MCNEILL MD, Ot Z86.711 PERSONAL HISTORY OF PULMONARY EMBOLISM 08/21/2017 PAYAL VIGIL APRN Ot M54.2 CERVICALGIA 08/21/2017 PAYAL VIGIL APRN Ot Z53.29 PROC/TRTMT NOT CRD OUT BEC PT DECISION F 08/21/2017 REAGAN MCNEILL MD, Ot Z51.81 ENCOUNTER FOR THERAPEUTIC DRUG LEVEL MON 08/21/2017 REAGAN MCNEILL MD, Ot Z79.01 HALFWAY (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 OF 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 08/21/2017 REAGAN MCNEILL MD, Ot Z86.711 PERSONAL HISTORY OF PULMONARY EMBOLISM 08/21/2017 PAYAL VIGIL APRN Ot J98.11 ATELECTASIS 08/21/2017 PAYAL VIGIL APRN Ot Z87.442 PERSONAL HISTORY OF URINARY CALCULI 08/21/2017 MICHAEL WAGNER Ot I10 ESSENTIAL (PRIMARY) HYPERTENSION 08/21/2017 MICHAEL WAGNER Ot I25.10 ATHSCL HEART DISEASE OF [place] CORONARY 08/21/2017 MICHAEL WAGNER Ot R06.09 OTHER FORMS OF DYSPNEA 08/21/2017 MICHAEL WAGNER Ot R07.89 OTHER CHEST PAIN 08/21/2017 REAGAN MCNEILL MD Ot E03.9 HYPOTHYROIDISM, UNSPECIFIED 08/21/2017 REAGAN MCNEILL MD Ot E66.9 OBESITY, UNSPECIFIED 08/21/2017 REAGAN MCNEILL MD Ot E78.5 HYPERLIPIDEMIA, UNSPECIFIED 08/21/2017 REAGAN MCNEILL MD Ot I10 ESSENTIAL (PRIMARY) HYPERTENSION 08/21/2017 REAGAN MCNEILL MD Ot I25.110 ATHSCL HEART DISEASE OF [place] COR ART W 08/21/2017 REAGAN MCNEILL MD Ot I77.1 STRICTURE OF ARTERY 08/21/2017 REAGAN MCNEILL MD Ot J45.909 UNSPECIFIED ASTHMA, UNCOMPLICATED 08/21/2017 REAGAN MCNEILL MD Ot Z68.43 BODY MASS INDEX (BMI) 50-59.9 , ADULT 08/21/2017 REAGAN MCNEILL MD Ot Z79.01 DOMESTIC HOUSEKEEPER (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 OF 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 08/21/2017 REAGAN MCNEILL MD, Ot Z86.711 PERSONAL HISTORY OF PULMONARY EMBOLISM 08/21/2017 REAGAN MCNEILL MD, Ot Z86.718 PERSONAL HISTORY [...] APRN Ot I25.10 ATHSCL HEART DISEASE OF [place] CORONARY 08/24/2017 SHALOM RAMÍREZ APRN Ot I73.9 PERIPHERAL VASCULAR DISEASE, UNSPECIFIED 08/24/2017 SHALOM RAMÍREZ APRN Ot J44.9 CHRONIC OBSTRUCTIVE PULMONARY DISEASE, U 08/24/2017 SHALOM RAMÍREZ APRN Ot K21.9 GASTRO-ESOPHAGEAL REFLUX DISEASE WITHOUT 08/24/2017 SHALOM RAMÍREZ APRN Ot R07.2 PRECORDIAL PAIN 08/24/2017 SHALOM RAMÍREZ APRN Ot Z68.43 BODY MASS INDEX (BMI) 50-59.9 , ADULT 08/24/2017 SHALOM RAMÍREZ APRN Ot Z79.01 DOMESTIC HOUSEKEEPER (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 OF 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 08/24/2017 SHALOM RAMÍREZ APRN Ot Z79.02 HALFWAY (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 OF ANTITHROMBOTI 08/24/2017 SHALOM RAMÍREZ APRN Ot Z79.51 HALFWAY (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 OF INHALED STERO 08/24/2017 SHALOM RAMÍREZ APRN Ot Z79.82 DOMESTIC HOUSEKEEPER (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 OF ASPIRIN 08/24/2017 SHALOM RAMÍREZ [...] RAMÍREZ APRN Ot Z88.8 ALLERGY STATUS TO OT DRUG/MEDS/BIOL SUB 08/24/2017 SHALOM RAMÍREZ APRN Ot [...] MD Ot I25.110 ATHSCL HEART DISEASE OF [place] COR ART W 08/24/2017 REAGAN MCNEILL MD Ot I77.1 STRICTURE OF ARTERY 08/24/2017 REAGAN MCNEILL MD Ot J45.909 UNSPECIFIED ASTHMA, UNCOMPLICATED 08/24/2017 REAGAN MCNEILL MD Ot R82.90 UNSPECIFIED ABNORMAL FINDINGS IN URINE 08/24/2017 REAGAN MCNEILL MD Ot Z68.43 BODY MASS INDEX (BMI) 50-59.9 , ADULT 08/24/2017 REAGAN MCNEILL MD Ot Z79.01 DOMESTIC HOUSEKEEPER (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 OF 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 08/24/2017 REAGAN MCNEILL [...] MD Ot I25.110 ATHSCL HEART DISEASE OF [place] COR ART W 08/26/2017 REAGAN MCNEILL MD Ot I77.1 STRICTURE OF ARTERY 08/26/2017 REAGAN MCNEILL MD Ot J45.909 UNSPECIFIED ASTHMA, UNCOMPLICATED 08/26/2017 REAGAN MCNEILL MD Ot R82.90 UNSPECIFIED ABNORMAL FINDINGS IN URINE 08/26/2017 REAGAN MCNEILL MD Ot Z68.43 BODY MASS INDEX (BMI) 50-59.9 , ADULT 08/26/2017 REAGAN MCNEILL MD Ot Z79.01 DOMESTIC HOUSEKEEPER (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 OF 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 08/26/2017 REAGAN MCNEILL MD Ot Z86.711 PERSONAL HISTORY OF PULMONARY EMBOLISM 08/26/2017 REAGAN MCNEILL MD Ot Z86.718 PERSONAL HISTORY OF OTHER VENOUS THROMBO 08/28/2017 MICHAEL WAGNER Ot I10 ESSENTIAL (PRIMARY) HYPERTENSION 08/28/2017 MICHAEL WAGNER Ot I25.10 ATHSCL HEART DISEASE OF [place] CORONARY 08/28/2017 MICHAEL WAGNER Ot R06.09 OTHER FORMS OF DYSPNEA 08/28/2017 MICHAEL WGANER Ot R07.89 OTHER CHEST PAIN 08/31/2017 REAGAN MCNEILL MD Ot E03.9 HYPOTHYROIDISM, UNSPECIFIED 08/31/2017 REAGAN MCNEILL MD Ot E66.9 OBESITY, UNSPECIFIED 08/31/2017 REAGAN MCNEILL MD Ot E78.5 HYPERLIPIDEMIA, UNSPECIFIED 08/31/2017 REAGAN MCNEILL MD, Ot I10 ESSENTIAL (PRIMARY) HYPERTENSION 08/31/2017 REAGAN MCNEILL MD Ot I25.110 ATHSCL HEART DISEASE OF [place] COR ART W 08/31/2017 REAGAN MCNEILL MD Ot I77.1 STRICTURE OF ARTERY 08/31/2017 REAGAN MCNEILL MD Ot J45.909 UNSPECIFIED ASTHMA, UNCOMPLICATED 08/31/2017 REAGAN MCNEILL MD Ot R82.90 UNSPECIFIED ABNORMAL FINDINGS IN URINE 08/31/2017 REAGAN MCNEILL MD Ot Z68.43 BODY MASS INDEX (BMI) 50-59.9 , ADULT 08/31/2017 REAGAN MCNEILL MD Ot Z79.01 HALFWAY (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 OF 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 08/31/2017 REAGAN MCNEILL MD Ot Z86.711 PERSONAL HISTORY OF PULMONARY EMBOLISM 08/31/2017 REAGAN MCNEILL MD Ot Z86.718 PERSONAL HISTORY OF OTHER VENOUS THROMBO 09/04/2017 MICHAEL WAGNER Ot I10 ESSENTIAL (PRIMARY) HYPERTENSION 09/04/2017 MICHAEL WAGNER Ot I25.10 ATHSCL HEART DISEASE OF [place] CORONARY 09/04/2017 MICHAEL WAGNER Ot R06.09 OTHER FORMS OF DYSPNEA 09/04/2017 MICHAEL WAGNER Ot R07.89 OTHER CHEST PAIN 09/05/2017 BARNIDGE DOVIANNEY Ot E03.9 HYPOTHYROIDISM, UNSPECIFIED 09/05/2017 BARN[place]GE VIANNEY MOYA Ot E66.01 MORBID (SEVERE) OBESITY DUE TO EXCESS CA 09/05/2017 BARNIDGMadelin DOVIANNEY Ot E78.5 HYPERLIPIDEMIA, UNSPECIFIED 09/05/2017 BARNIDGE DOVIANNEY Ot G47.33 OBSTRUCTIVE SLEEP APNEA (ADULT) (PEDIATR 09/05/2017 B[place] DOVIANNEY Ot I10 ESSENTIAL (PRIMARY) HYPERTENSION 09/05/2017 BARNIDGMadelin DOVIANNEY Ot I25.10 ATHSCL HEART DISEASE OF [place] CORONARY 09/05/2017 VIANNEY SMITH DO Ot I73.9 PERIPHERAL VASCULAR DISEASE, UNSPECIFIED 09/05/2017 BARNIDGVIANNEY Yusuf DO Ot J44.9 CHRONIC OBSTRUCTIVE PULMONARY DISEASE, U 09/05/2017 PAWELNIVIANNEY POLLACK DO Ot J45.909 UNSPECIFIED ASTHMA, UNCOMPLICATED 09/05/2017 [place] VIANNEY MOYA Ot K21.9 GASTRO-ESOPHAGEAL REFLUX DISEASE WITHOUT 09/05/2017 [place] VIANNEY MOYA Ot N39.0 URINARY TRACT INFECTION, SITE NOT SPECIF 09/05/2017 VIANNEY SMITH DO Ot R07.89 OTHER CHEST PAIN 09/05/2017 ANDREADGVIANNEY Yusuf DO Ot R60.0 LOCALIZED EDEMA 09/05/2017 VIANNEY SMITH DO Ot Z68.43 BODY MASS INDEX (BMI) 50-59.9 , ADULT 09/05/2017 VIANNEY SMITH DO Ot Z79.01 HALFWAY (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 OF 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 09/05/2017 VIANNEY SMITH DO Ot Z79.02 DOMESTIC HOUSEKEEPER (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 OF ANTITHROMBOTI 09/05/2017 VIANNEY SMITH DO Ot Z79.82 HALFWAY (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 OF ASPIRIN 09/05/2017 VIANNEY SMITH DO Ot Z79.899 OTHER DOMESTIC HOUSEKEEPER (CURRENT) DRUG THERAPY 09/05/2017 VIANNEY SMITH DO Ot Z82.49 FAMILY HX OF [place] HEART DIS AND OTH DI 09/05/2017 VIANNEY SMITH DO Ot Z85.038 PERSONAL HISTORY OF MALIGNANT NEOPLASM O 09/05/2017 VIANNEY SMITH DO Ot Z86.711 PERSONAL HISTORY OF PULMONARY EMBOLISM 09/05/2017 VIANNEY SMITH DO Ot Z86.718 PERSONAL HISTORY OF OTHER VENOUS THROMBO 09/05/2017 VIANNEY SMITH DO Ot Z87.01 PERSONAL HISTORY OF PNEUMONIA (RECURRENT 09/05/2017 VIANNEY SMITH DO Ot Z88.0 ALLERGY STATUS TO PENICILLIN 09/05/2017 VIANNEY SMITH DO Ot Z88.8 ALLERGY STATUS TO [facility] DRUG/MEDS/BIOL SUB 09/05/2017 VIANNEY SMITH DO Ot Z91.048 OTHER NONMEDICINAL SUBSTANCE ALLERGY STA 09/05/2017 VIANNEY SMITH DO Ot Z95.5 PRESENCE OF CORONARY ANGIOPLASTY IMPLANT 09/05/2017 VIANNEY SMITH DO Ot E03.9 HYPOTHYROIDISM, UNSPECIFIED 09/05/2017 VIANNEY SMITH DO Ot E66.01 MORBID (SEVERE) OBESITY DUE TO EXCESS CA 09/05/2017 VIANNEY SMITH DO Ot E78.5 HYPERLIPIDEMIA, UNSPECIFIED 09/05/2017 VIANNEY SMITH DO Ot G47.33 OBSTRUCTIVE SLEEP APNEA (ADULT) (PEDIATR 09/05/2017 VIANNEY SMITH DO Ot I10 ESSENTIAL (PRIMARY) HYPERTENSION 09/05/2017 VIANNEY SMITH DO Ot I25.10 ATHSCL HEART DISEASE OF [place] CORONARY 09/05/2017 VIANNEY SMITH DO Ot I73.9 PERIPHERAL VASCULAR DISEASE, UNSPECIFIED 09/05/2017 VIANNEY SMITH DO Ot J44.9 CHRONIC OBSTRUCTIVE PULMONARY DISEASE, U 09/05/2017 VIANNEY SMITH DO Ot J45.909 UNSPECIFIED ASTHMA, UNCOMPLICATED 09/05/2017 VIANNEY SMITH DO Ot K21.9 GASTRO-ESOPHAGEAL REFLUX DISEASE WITHOUT 09/05/2017 VIANNEY SMITH DO Ot N39.0 URINARY TRACT INFECTION, SITE NOT SPECIF 09/05/2017 VIANNEY SMITH DO Ot R07.89 OTHER CHEST PAIN 09/05/2017 VIANNEY SMITH DO Ot R60.0 LOCALIZED EDEMA 09/05/2017 VIANNEY SMITH DO Ot Z68.43 BODY MASS INDEX (BMI) 50-59.9 , ADULT 09/05/2017 VIANNEY SMITH DO Ot Z79.01 DOMESTIC HOUSEKEEPER (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 OF 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 09/05/2017 VIANNEY SMITH DO Ot Z79.02 DOMESTIC HOUSEKEEPER (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 OF ANTITHROMBOTI 09/05/2017 VIANNEY SMITH DO Ot Z79.82 DOMESTIC HOUSEKEEPER (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 OF ASPIRIN 09/05/2017 VIANNEY SMITH DO Ot Z79.899 OTHER HALFWAY (CURRENT) DRUG THERAPY 09/05/2017 VIANNEY SMITH DO Ot Z82.49 FAMILY HX OF [place] HEART DIS AND OTH DI 09/05/2017 VIANNEY SMITH DO Ot Z85.038 PERSONAL HISTORY OF MALIGNANT NEOPLASM O 09/05/2017 VIANNEY SMITH DO Ot Z86.711 PERSONAL HISTORY OF PULMONARY EMBOLISM 09/05/2017 VIANNEY SMITH DO Ot Z86.718 PERSONAL HISTORY OF OTHER VENOUS THROMBO 09/05/2017 VIANNEY SMITH DO Ot Z87.01 PERSONAL HISTORY OF PNEUMONIA (RECURRENT 09/05/2017 VIANNEY SMITH DO Ot Z88.0 ALLERGY STATUS TO PENICILLIN 09/05/2017 VIANNEY SMITH DO Ot Z88.8 ALLERGY STATUS TO [facility] DRUG/MEDS/BIOL SUB 09/05/2017 VIANNEY SMITH DO Ot Z91.048 OTHER NONMEDICINAL SUBSTANCE ALLERGY STA 09/05/2017 VIANNEY SMITH DO Ot Z95.5 PRESENCE OF CORONARY ANGIOPLASTY IMPLANT Procedures Code Description Performed By Performed On 06.4 COMPLETE THYROIDECTOMY 09/11/2009 37.22 LEFT HEART CARDIAC CATH 03/17/2012 88.53 LT HEART ANGIOCARDIOGRAM 03/17/2012 88.56 CORONAR ARTERIOGR-2 CATH 03/17/2012 92601 XRAY CERVICAL SPINE, 2 OR 3 VIEWS 04/20/2012 02870 ROUTINE VENIPUNCTURE 04/22/2012 01638 INR (IN HOUSE) 04/22/2012 39114 TSH 04/23/2012 96428 OXIMETRY 04/27/2012 15118 MEASURE BLOOD OXYGEN LEVEL 05/16/2012 40448 ROUTINE VENIPUNCTURE 06/03/2012 83926 XRAY CHEST 2 VIEW 06/03/2012 61587 BNP 06/03/2012 37558 CBC 06/03/2012 15757 INR (IN HOUSE) 06/03/2012 47102 OXIMETRY 06/03/2012 77564 XRAY FOOT LEFT COMP MIN 3 VIEWS 06/17/2012 65499 SPIROMETRY 06/29/2012 65726 BRONCHODILATION PRE/POST 06/29/2012 37648 RESPIRATORY FLOW VOLUME LOOP 06/29/2012 74941 UA W/ CULTURE IF INDICATED 07/13/[address] ABDOMEN & PELVIS STONE SEARCH 07/28/2012 93378 UA W/ CULTURE IF INDICATED 07/28/2012 63514 STONE ANALYSIS 07/29/[address] HEAD/BRAIN W/O & W/DYE 07/30/2012 20114 XRAY ANKLE R COMP MIN, 3 VIEWS 09/02/2012 02028 XRAY FOOT RIGHT 2 VIEWS 09/02/[address] ANGIO, CHEST 10/18/2012 40258 INR (IN HOUSE) 10/28/2012 37770 US GUIDE FOR BIOPSY 12/16/2012 21043 US BREAST(S) ULTRASOUND, BOTH 12/24/2012 98916 INR (IN HOUSE) 01/12/2013 37177 UA W/ CULTURE IF INDICATED 01/12/2013 74029 CULTURE URINE 01/14/2013 19787 INR (IN HOUSE) 02/10/2013 16019 ROUTINE VENIPUNCTURE 03/15/2013 11989 XRAY FOOT RIGHT 2 VIEWS 03/15/2013 07525 TSH 03/15/2013 58790 INR (IN HOUSE) 03/15/2013 64596 XRAY CHEST 2 VIEW 03/23/[address] CHEST W/DYE 03/23/2013 67845 ECHO 2D 03/23/2013 19576 OXIMETRY 03/23/2013 91467 INR (IN HOUSE) 03/29/2013 67961 INR (IN HOUSE) 05/18/2013 22593 XRAY CHEST 2 VIEW 05/19/2013 04084 OXIMETRY 05/23/2013 93741 UA W/ CULTURE IF INDICATED 06/14/2013 71754 ROUTINE VENIPUNCTURE 06/23/2013 29316 INR (IN HOUSE) 06/23/2013 83912 LIPID PANEL 06/23/2013 53884 TSH 06/23/2013 73584 MRI EXTREMITY JOINT, LOWER RIGHT, W/O CONTRAST 07/14/2013 ORTHOPEDI JAMARCUS DEVLIN 07/14/2013 83771 ROUTINE VENIPUNCTURE 08/15/2013 40892 INR (IN HOUSE) 08/15/2013 15418 TSH 08/15/2013 71941 INR (IN HOUSE) 09/02/2013 41136 CULTURE URINE 12/16/2013 64142 UA W/ CULTURE IF INDICATED 12/16/2013 74484 CULTURE URINE 12/19/2013 26719 ROUTINE VENIPUNCTURE 05/26/2014 59475 INR (IN HOUSE) 05/26/2014 80989 TSH 05/26/2014 97721 CBC 05/26/2014 14448 US VENOUS DOPPLER (DVT EVAL ) 08/07/2014 [id number] DILATE 1 COR ART, BIFURC, W DRUG-ELUT IN 08/19/2017 [id number] DILATION OF 1 COR ART WITH DRUG-ELUT INT 08/19/2017 [id number] MEASURE OF CARDIAC SAMPL PRESSURE, L H 08/19/2017 [id number] FLUOROSCOPY OF MULT COR ART USING L OSM 08/19/2017 [id number] FLUOROSCOPY OF LEFT HEART USING LOW OSMO [...] measurement (mass/volume) < ng/ mL <0.30 Thyroid Lagrange Profile - 04/01/16 09:57 TSH 2.930 uIU/mL [...] blood basophil count (count/volume) 0.0 10*3/uL 0.0-0.1 [id number] - 07/17/16 07:14 Serum or plasma urea [...] 11:16 Hemoglobin A1c 6.8 % 4.8-5.6 Thyroid Lagrange Profile - 10/22/16 11:16 TSH 7.960 uIU/mL [...] culture YES NRG Bacterial urine culture - 09/04/17 23:34 Bacterial urine culture [id number] NRG COLONY COUNT >100,000/ML NRG FTX;REPORTABLE SENSITIVITY REPORTED 09/06/17 7:55 NRG FREE TEXT ENTRY 2 PLUS, NRG FREE TEXT ENTRY 3 MIXED GRAM POSITIVES <10,000/ML NRG Bacterial susceptibility panel - 09/04/17 23:34 Gentamicin susceptibility test by minimum inhibitory concentration < = NRG Trimethoprim/sulfamethoxazole susceptibility test by minimum inhibitoryconcentration S NRG Ampicillin susceptibility test by minimum inhibitory concentration < = NRG Tobramycin susceptibility test by minimum inhibitory concentration < = NRG Cefazolin susceptibility test by minimum inhibitory concentration < = NRG Ceftriaxone susceptibility test by minimum inhibitory concentration <= NRG Ampicillin/sulbactam susceptibility test by minimum inhibitory concentration S NRG Piperacillin/tazobactam susceptibility test by minimum inhibitory concentration S NRG Ciprofloxacin susceptibility test by minimum inhibitory concentration <= NRG Meropenem susceptibility test by minimum inhibitory concentration < = NRG Nitrofurantoin susceptibility test by minimum inhibitory concentration <= NRG Aztreonam susceptibility test by minimum inhibitory concentration < = NRG Extended spectrum beta lactamase (ESBL) producing bacteria susceptibility test by minimum inhibitory concentration - NR Serum or plasma troponin i.cardiac measurement (mass/volume) - 09/05/17 04:27 Serum or plasma troponin i.cardiac measurement (mass/volume) < ng/ mL <0.30 Myoglobin, serum - 09/05/17 04:27 Myoglobin, serum 34.4 ng/mL 10.0-92.0 Lipid 1996 panel - 09/05/17 04:27 Serum or plasma triglyceride measurement (mass/volume) 121 mg/dL <150 Serum or plasma cholesterol measurement (mass/volume) 152 mg/dL < 200 Serum or plasma cholesterol in HDL measurement (mass/volume) 35 mg/ dL 40-60 Cholesterol in LDL [mass/volume] in serum or plasma by direct assay 98 mg/dL 1-129 Serum or plasma cholesterol in VLDL measurement (mass/volume) 24 mg/ dL 5-40 Serum or plasma lithium measurement (moles/volume) - 09/05/17 07:17 BNP level < pg/mL <100.0 Encounters ACCT No. Visit Date/Time Discharge Status Pt. Type Provider Facility Loc./Unit Complaint [id number] 08/07/2014 09:51:00 08/07/2014 23:59:59 CLS Outpatient ANNITA MOYA JOSE ALBERTO Astrid [id number] 05/26/2014 11:37:00 05/26/2014 23:59:59 CLS Outpatient ARIZA DOJOSE ALBERTO Astrid [id number] 01/16/2014 11:28:00 01/16/2014 23:59:59 CLS Outpatient ARIZA DOJOSE ALBERTO Astrid [id number] 12/26/2013 12:31:00 12/26/2013 23:59:59 CLS Outpatient JOSE ALBERTO ARIZA DO Astrid [id number] 12/19/2013 13:24:00 12/19/2013 23:59:59 CLS Outpatient JOSE ALBERTO ARIZA DO Astrid [id number] 12/16/2013 13:58:00 12/16/2013 23:59:59 CLS Outpatient ARIZA DO JOSE ALBERTO Astrid [id number] 12/16/2013 13:58:00 12/16/2013 23:59:59 CLS Outpatient ARIZA DOJOSE ALBERTO Astrid [id number] 10/07/2013 14:22:00 10/07/2013 23:59:59 CLS Outpatient ARIZA DO JOSE ALBERTO Astrid [id number] 09/02/2013 10:22:00 09/02/2013 23:59:59 CLS Outpatient ARIZA DO JOSE ALBERTO Astrid [id number] 08/15/2013 14:48:00 08/15/2013 23:59:59 CLS Outpatient ANNITA MOYA JOSE ALBERTO K [id number] 07/14/2013 14:39:00 07/14/2013 23:59:59 CLS Outpatient CHERYL BIRMINGHAM APRN [id number] 07/08/2013 08:55:00 07/08/2013 23:59:59 CLS Outpatient ARIZA DOJOSE ALBERTO [id number] 06/23/2013 09:13:00 06/23/2013 23:59:59 CLS Outpatient CHARLES DOYLE PA-C [id number] 06/14/2013 15:59:00 06/14/2013 23:59:59 CLS Outpatient CHERYL BIRMINGHAM APRN [id number] 05/30/2013 12:08:00 05/30/2013 23:59:59 CLS Outpatient ARIZA DOJOSE ALBERTO Astrid [id number] 05/23/2013 10:34:00 05/23/2013 23:59:59 CLS Outpatient ARIZA DO, JOSE ALBERTO Astrid [id number] 05/23/2013 10:34:00 05/23/2013 23:59:59 CLS Outpatient ARIZA DO, JOSE ALBERTO Astrid [id number] 05/18/2013 17:42:00 05/18/2013 23:59:59 CLS Outpatient DONI PALAFOX APRN [id number] 04/18/2013 11:55:00 04/18/2013 23:59:59 CLS Outpatient ARIZA DOJOSE ALBERTO Astrid [id number] 03/29/2013 11:13:00 03/29/2013 23:59:59 CLS Outpatient ARIZA DOJOSE ALBERTO Astrid [id number] 03/22/2013 09:39:00 03/22/2013 23:59:59 CLS Outpatient ARIZA DOJOSE ALBERTO [id number] 03/22/2013 09:39:00 03/22/2013 23:59:59 CLS Outpatient ARIZA DOJOSE ALBERTO [id number] 03/15/2013 09:00:00 03/15/2013 23:59:59 CLS Outpatient ARIZA DO, JOSE ALBERTO Astrid [id number] 03/15/2013 09:00:00 03/15/2013 23:59:59 CLS Outpatient ARIZA DO, JOSE ALBERTO K [id number] 02/10/2013 08:00:00 02/10/2013 23:59:59 CLS Outpatient ARIZA DO, JOSE ALBERTO Astrid [id number] 07/28/2012 14:05:00 07/28/2012 23:59:59 CLS Outpatient ARIZA DOCHRISTOPHERSantana Resendiz [id number] 07/13/2012 10:49:00 07/13/2012 23:59:59 CLS Outpatient ARIZA DO, JOSE ALBERTO K [id number] 06/29/2012 07:51:00 06/29/2012 23:59:59 CLS Outpatient CHARLES DOYLE PA-C [id number] 06/10/2012 10:44:00 06/10/2012 23:59:59 CLS Outpatient [id number] 06/03/2012 09:27:00 06/03/2012 23:59:59 CLS Outpatient JOSE ALBERTO ARIZA DO [id number] 05/14/2012 15:57:00 05/14/2012 23:59:59 CLS Outpatient JOSE ALBERTO ARIZA DO [id number] 04/27/2012 08:04:00 04/27/2012 23:59:59 CLS Outpatient [id number] 04/22/2012 09:50:00 04/22/2012 23:59:59 CLS Outpatient [id number] 04/20/2012 16:19:00 04/20/2012 23:59:59 CLS Outpatient [id number] 02/05/2012 08:28:00 02/05/2012 23:59:59 CLS Outpatient MORIS LOYOLA MD [id number] 01/12/2013 09:13:00 Document Registration [id number] 12/16/2012 09:21:00 Document Registration [id number] 12/16/2012 09:21:00 Document Registration [id number] 10/28/2012 12:34:00 Document Registration [id number] 09/10/2012 16:36:00 Document Registration [id number] 08/31/2012 10:19:00 Document Registration [id number] 08/31/2012 10:19:00 Document Registration [id number] 10/23/2016 15:09:00 Document Registration [id number] 09/04/2017 22:53:00 09/05/2017 15:17:00 DIS Inpatient VIANNEY SMITH DO Via [facility] 4TH CHEST PAIN [id number] 08/20/2017 12:34:00 08/20/2017 13:57:00 DIS Emergency SHALOM RAMÍREZ DONOR CENTER TECHNICIAN Via [facility] ER CP [id number] 08/19/2017 08:24:00 08/20/2017 09:55:00 DIS Outpatient REAGAN MCNEILL MD Via [facility] CATH ABN STRESS,CP,HTN [id number] 08/05/2017 10:47:00 08/05/2017 23:59:59 CLS Outpatient REAGAN MCNEILL MD Via [facility] LAB Z51.81 Z86.711 [id number] 08/05/2017 10:36:00 08/05/2017 23:59:59 CLS Outpatient MICHAEL WAGNER Via [facility] CARD I25.10 CAD [id number] 07/13/2017 14:45:00 07/13/2017 23:59:59 CLS Preadmit MICHAEL WAGNER Via [facility] CARD I25.10 CAD [id number] 07/10/2017 12:47:00 07/10/2017 23:59:59 CLS Outpatient PAYAL VIGIL DONOR CENTER TECHNICIAN Via [facility] RAD N20.0 RENAL STONES [id number] 02/05/2017 12:52:00 02/05/2017 23:59:59 CLS Outpatient PAYLA VIGIL DONOR CENTER TECHNICIAN Via [facility] RAD M54.2 [id number] 01/20/2017 18:36:00 01/20/2017 23:32:00 DIS Emergency CHARLES LOPEZ MD Via [facility] ER SOB,DIZZINESS,NAUSEA [id number] 12/29/2016 00:14:00 12/29/2016 23:59:59 CLS Preadmit REAGAN MCNEILL MD Via [facility] LAB Z86.711 [id number] 12/28/2016 13:45:00 12/28/2016 15:30:00 DIS Emergency BESSY DOKARENAA K [facility] ER HEADACHE [id number] 09/29/2016 14:31:00 12/28/2016 00:01:00 DIS Outpatient REAGAN MCNEILL MD Via [facility] LAB Z86.711 [id number] 09/04/2016 13:36:00 09/04/2016 16:13:00 DIS Emergency MIRIAM SPENCER SYSTEM SUPPORT TECHNICIAN Via [facility] ER FALL/ RIGHT KNEE INJ [id number] 07/17/2016 06:58:00 07/17/2016 23:59:59 CLS Outpatient KAVYA PATRICK DONOR CENTER TECHNICIAN Via [facility] RAD GENERALIZED ABD PAIN [id number] 02/16/2016 19:06:00 02/16/2016 22:12:00 DIS Emergency SHALOM RAMÍREZ DONOR CENTER TECHNICIAN Via [facility] ER CHEST PAIN [id number] 02/15/2016 12:58:00 02/15/2016 23:59:59 CLS Outpatient PAYAL VIGIL DONOR CENTER TECHNICIAN Via [facility] RAD ACUTE RT SIDED THORACIC PAIN [id number] 09/05/2015 07:05:00 09/06/2015 09:30:00 DIS Outpatient REAGAN MCNEILL MD Via [facility] CATH CAD,HTN HLP SYNCOPE [id number] 09/04/2015 14:08:00 09/04/2015 16:10:00 DIS Emergency SHALOM RAMÍREZ DONOR CENTER TECHNICIAN Via [facility] ER CHEST PAIN [id number] 06/21/2015 15:25:00 06/21/2015 19:18:00 DIS Emergency MICHELE COTTON Via [facility] ER SOA [id number] 05/23/2015 15:54:00 05/23/2015 23:59:59 CLS Outpatient MIGDALIA JIMENEZ DO Via [facility] LAB HYPOTHYROIDISM, DISORDER OF THE DIGESTIVE SYSTEM [id number] 05/14/2015 21:53:00 05/15/2015 00:14:00 DIS Emergency NORIS DOHERTY DO Via [facility] ER POST SURGICAL PAIN [id number] 04/21/2015 12:17:00 04/21/2015 15:18:00 DIS Emergency JESSICA NAM, CHARLES Shannon Via [facility] ER POST OP/BLOODY DRAINAGE [id number] 04/19/2015 06:00:00 04/20/2015 19:00:00 DIS Outpatient CHAS RODARTE DO [facility] CRONIC PELVIC PAIN [id number] 04/18/2015 10:51:00 04/18/2015 15:10:00 DIS Outpatient BALDEV LITTLEJOHN DO [facility] ABDOMINAL PAIN [id number] 04/14/2015 10:47:00 04/14/2015 12:53:00 DIS Emergency DEWEY PURDY MD Via [facility] ER L LEG PAIN/WEAKNESS [id number] 04/12/2015 13:39:00 04/12/2015 23:59:59 CLS Outpatient CHEN INFANTE APRN Via [facility] LAB ACUTE UPPER RESPIRATORY INFECTION [id number] 04/12/2015 13:34:00 04/12/2015 23:59:59 CLS Outpatient CHAS RODARTE DO Via [facility] PREOP CRONIC PELVIC PAIN [id number] 04/12/2015 13:20:00 04/12/2015 23:59:59 CLS Outpatient BALDEV LITTLEJOHN DO Via [facility] PREOP ABD. PAIN [id number] 03/21/2015 14:46:00 03/21/2015 23:59:59 CLS Outpatient CHAS RODARTE DO Via [facility] RAD PELVIC PAIN [id number] 03/21/2015 10:49:00 03/21/2015 23:59:59 CLS Outpatient BALDEV LITTLEJOHN DO Via [facility] RAD SUPRAPUBIC ABD PAIN [id number] 01/17/2015 10:59:00 01/17/2015 23:59:59 CLS Outpatient CHAS RODARTE DO Via [facility] RAD IUD NOT FOUND ON SONO [id number] 01/12/2015 10:03:00 01/12/2015 12:10:00 DIS Emergency CELY VIGIL MD Via [facility] ER POSS BLOOD CLOT IN LUNG [id number] 01/08/2015 15:12:00 01/08/2015 23:59:59 CLS Outpatient CHAS RODARTE DO Via [facility] RAD FIBROID UTERUS [id number] 01/05/2015 15:46:00 01/05/2015 17:46:00 DIS Emergency SHALOM RAMÍREZ APRN Via [facility] ER POST COLONOSCOPY [id number] 01/02/2015 13:01:00 01/02/2015 15:55:00 DIS Outpatient BALDEV LITTLEJOHN DO Via [facility] SDC RECTAL BLEEDING [id number] 12/28/2014 05:53:00 12/28/2014 23:59:59 CLS Outpatient BALDEV LITTLEJOHN DO Via [facility] PREOP RECTAL BLEEDING [id number] 11/08/2014 14:02:00 11/08/2014 23:59:59 CLS Outpatient ALYSSA MOYA CATERINA M Via [facility] RT DYSPNEA [id number] 11/08/2014 20:53:00 11/08/2014 22:18:00 DIS Emergency SHALOM RAMÍREZ APRN Via [facility] ER ABD PAIN [id number] 10/01/2014 12:06:00 10/01/2014 13:20:00 DIS Emergency MICHELE COTTON Via [facility] ER CAT BITE [id number] 09/29/2014 17:38:00 09/29/2014 20:24:00 DIS Emergency SHALOM RAMÍREZ APRN Via [facility] ER POSSIBLE INTERNAL BLEEDING [id number] 09/06/2014 15:19:00 09/06/2014 16:50:00 DIS Emergency MICHELE COTTON Via [facility] ER L FOOT/KNEE PAIN [id number] 08/08/2014 14:28:00 08/08/2014 23:59:59 CLS Outpatient CHARLES FREED Via [facility] RAD PAIN IN LIMB [id number] 06/23/2014 02:44:00 06/23/2014 04:43:00 DIS Emergency CHARLES LOPEZ MD Via [facility] ER ABD PAIN [id number] 06/21/2014 13:14:00 06/21/2014 16:31:00 DIS Emergency NORIS DOHERTY DO Via [facility] ER VAG BLEEDING [id number] 06/07/2014 19:12:00 06/07/2014 22:17:00 DIS Emergency NORIS DOHERTY DO Via [facility] ER LOWER R SIDE PAIN [id number] 05/26/2014 13:46:00 05/26/2014 23:59:59 CLS Outpatient CHAS RODARTE DO Via [facility] RAD RLQ ABD PAIN [id number] 04/21/2014 22:55:00 04/22/2014 01:35:00 DIS Emergency NORIS DOHERTY DO Via [facility] ER CP [id number] 02/02/2014 06:00:00 02/02/2014 11:25:00 DIS Outpatient CHAS RODARTE DO Via [facility] SDC PELVIC PAIN [id number] 01/25/2014 10:03:00 01/25/2014 23:59:59 CLS Outpatient CHAS RODARTE DO Via [facility] PREOP PELVIC PAIN [id number] 01/12/2014 22:23:00 01/13/2014 00:42:00 DIS Emergency NORIS DOHERTY DO Via [facility] ER CHEST PAIN [id number] 2013 14:06:00 2013 18:02:00 DIS Emergency MICHELE COTTON Via [facility] ER POSS UTI [id number] 12/05/2013 20:51:00 12/05/2013 22:14:00 DIS Emergency SHALOM RAMÍREZ APRN Via [facility] ER PAINFUL URINATION [id number] 11/26/2013 11:37:00 11/26/2013 12:18:00 DIS Emergency SHALOM RAMÍREZ APRN Via [facility] ER UTI [id number] 09/30/2013 19:00:00 10/01/2013 15:30:00 DIS Outpatient REAGAN MCNEILL MD Via [facility] CATH CHEST PAIN [id number] 09/12/2013 07:58:00 09/12/2013 23:59:59 CLS Outpatient MICHAEL WAGNER Via [facility] CARD CAD,CP,GERD, ROGERS [id number] 08/16/2013 11:45:00 08/17/2013 13:35:00 DIS Inpatient REAGAN MCNEILL MD Via [facility] CSD CHEST PAIN [id number] 07/15/2013 11:49:00 07/15/2013 12:17:00 DIS Emergency SHALOM RAMÍREZ APRN Via [facility] ER RIGHT ANKLE PAIN [id number] 07/11/2013 14:43:00 07/11/2013 23:59:59 CLS Outpatient [id number] 06/10/2013 15:51:00 06/10/2013 23:59:59 CLS Outpatient [id number] 05/19/2013 13:11:00 05/19/2013 23:59:59 CLS Outpatient CHARLES FREED Via [facility] RAD DX PNEUMONIA [id number] 05/12/2013 21:14:00 05/12/2013 23:15:00 DIS Emergency CHARLES LOPEZ MD Via [facility] ER SOA [id number] 04/01/2013 12:54:00 04/01/2013 23:59:59 CLS Outpatient CHARLES FREED Via [facility] CARD SOB, ENLARGED MEDIASTINUM [id number] 02/27/2013 19:11:00 02/27/2013 21:12:00 DIS Emergency MICHELE COTTON Via [facility] ER NECK/HEAD/BACK PAIN [id number] 01/26/2013 16:39:00 01/26/2013 18:16:00 DIS Emergency CHARLES LOPEZ MD Via [facility] ER COMPLICATIONS FROM CONCUSSION [id number] 01/11/2013 22:33:00 01/12/2013 03:42:00 DIS Emergency CHARLES LOPEZ MD Via [facility] ER FELL, HEADACHE, DIZZINESS,NAUSEA [id number] 01/06/2013 09:51:00 01/06/2013 23:59:59 CLS Outpatient GARETT NAM, ACE Summers Via [facility] LAB 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 [id number] 01/06/2013 09:20:00 01/06/2013 23:59:59 CLS Outpatient CHARLES FREED Via [facility] RAD 1.3 CM MASS [id number] 12/24/2012 08:13:00 12/24/2012 23:59:59 CLS Outpatient CHARLES FREED Via [facility] RAD BREAST PAIN [id number] 11/28/2012 04:59:00 11/28/2012 07:08:00 DIS Emergency DAVID NAM, WERNER Dillon Via [facility] ER R SIDE FACIAL PAIN; NO INJ [id number] 11/26/2012 17:26:00 11/26/2012 23:59:59 CLS Outpatient [id number] 10/21/2012 14:42:00 10/21/2012 19:32:00 DIS Emergency MUSA NAM, CELY Resendiz Via [facility] ER GI BLEED [id number] 10/19/2012 03:00:00 10/19/2012 15:15:00 DIS Outpatient CHARITO NAM, REAGAN Balderas Via [facility] CATH CHEST PAIN [id number] 10/18/2012 10:23:00 10/18/2012 13:31:00 DIS Emergency JESSICA NAM, CHARLES Shannon Via [facility] ER CP [id number] 08/10/2015 18:15:00 Document Registration [id number] 04/22/2014 05:17:00 Document Registration [id number] 04/22/2014 05:17:00 Document Registration [id number] 04/22/2014 05:17:00 Document Registration [id number] 04/22/2014 05:17:00 Document Registration [id number] 04/22/2014 05:17:00 Document Registration [id number] 04/22/2014 05:17:00 Document Registration [id number] 08/17/2012 07:41:00 Document Registration [id number] 08/12/2012 12:16:00 Document Registration [id number] 08/08/2012 21:15:00 Document Registration [id number] 06/20/2012 11:44:00 Document Registration [id number] 05/17/2012 09:58:00 Document Registration [id number] 05/05/2012 07:31:00 Document Registration [id number] 04/20/2012 17:20:00 Document Registration [id number] 03/15/2012 15:15:00 Document Registration [id number] 02/03/2012 05:39:00 Document Registration [id number] 01/29/2012 12:58:00 Document Registration [id number] 01/19/2012 19:43:00 Document Registration [id number] 01/17/2012 15:24:00 Document Registration [id number] 12/31/2011 19:30:00 Document Registration [id number] 11/27/2011 09:08:00 Document Registration [id number] 10/29/2011 19:49:00 Document Registration [id number] 08/28/2011 05:48:00 Document Registration [id number] 08/21/2011 14:12:00 Document Registration [id number] 03/04/2011 13:31:00 Document Registration [id number] 10/08/2010 04:55:00 Document Registration [id number] 08/26/2010 20:58:00 Document Registration [id number] 08/15/2010 09:13:00 Document Registration [id number] 09/15/2009 21:29:00 Document Registration [id number] 09/07/2009 12:20:00 Document Registration [id number] 08/09/2016 03:07:00 Document Registration [id number] 09/03/2017 10:20:00 09/03/2017 23:59:59 [facility] PAYAL VIGIL [facility] [id number] 06/29/2017 14:45:00 Document Registration [id number] 03/26/2017 13:00:00 Document Registration [id number] 01/05/2017 16:00:00 Document Registration [id number] 04/02/2016 13:06:00 Document Registration [id number] 01/06/2017 08:06:00 Document Registration
== END 2017-09-05 14:45 | disposition home or self-care (01) ==
LOC: EDUNIT# 22:50 → ER 22:52 → 4TH 22:53 → UNDOADMOB 09-05 00:28 → 4TH 09-05 00:28 → UNDODISOB 09-05 15:17
PROVIDERS: ADMIT Family Medicine; ATTEND Family Medicine
DX: R07.89 Other chest pain (principal); N39.0 Urinary tract infection, site not specified; I25.10 Atherosclerotic heart disease of native coronary artery without angina pectoris; I10 Essential (primary) hypertension; R60.0 Localized edema; J44.9 Chronic obstructive pulmonary disease, unspecified; G47.33 Obstructive sleep apnea (adult) (pediatric); I73.9 Peripheral vascular disease, unspecified; E78.5 Hyperlipidemia, unspecified; E03.9 Hypothyroidism, unspecified; K21.9 Gastro-esophageal reflux disease without esophagitis; J45.909 Unspecified asthma, uncomplicated; E66.01 Morbid (severe) obesity due to excess calories; Z68.43 Body mass index [BMI] 50.0-59.9, adult; Z86.711 Personal history of pulmonary embolism; Z86.718 Personal history of other venous thrombosis and embolism; Z82.49 Family history of ischemic heart disease and other diseases of the circulatory system; Z87.01 Personal history of pneumonia (recurrent); Z79.01 Long term (current) use of anticoagulants; Z79.02 Long term (current) use of antithrombotics/antiplatelets; Z79.82 Long term (current) use of aspirin; Z79.899 Other long term (current) drug therapy; Z85.038 Personal history of other malignant neoplasm of large intestine; Z91.048 Other nonmedicinal substance allergy status; Z88.0 Allergy status to penicillin; Z88.8 Allergy status to other drugs, medicaments and biological substances; Z95.5 Presence of coronary angioplasty implant and graft
CPT/HCPCS: 36415; 71045; 80053; 80061; 81000; 83735; 83874; 83880; 84484; 85025; 85610; 85730; 87088; 87186; 93005; 93041; 94640; 94760; 96365; 96375; G0378

== ENCOUNTER 2018-07-09 14:12 | Emergency (ER) | payer MEDICARE, MEDICAID ==
[~2018-07-09] VITALS: Ht 157.5 cm; Wt 89.8 kg
[~2018-07-09 14:12] MED LIST changes: +CEPH-507 PO; -INDO50CA PO; +INDO50CA11 PO; +LORA0.5T PO; +METF-397 PO; -METF500T5 PO; +NITR1PAT62 TOP; +RANO500T3 PO
[2018-07-09] MEDS ORDERED: NITR-65 PO (15:15)
[2018-07-09 15:43] LABS: BASOPHILS % (AUTO) 0 % (0-10); EOSINOPHILS # (AUTO) 0.1 10^3/uL (0.0-0.3); EOSINOPHILS % (AUTO) 1 % (0-10); HEMATOCRIT 41 % (35-52); HEMOGLOBIN 12.9 G/DL (11.5-16.0); LYMPHOCYTES # (AUTO) 2.1 X 10^3 (1.0-4.0); LYMPHOCYTES % (AUTO) 26 % (12-44); MEAN CORPUSCULAR HEMOGLOBIN 29 PG (25-34); MEAN CORPUSCULAR HGB CONC 31 G/DL (32-36); MEAN CORPUSCULAR VOLUME 93 FL (80-99); MEAN PLATELET VOLUME 10.7 FL (7.4-10.4); MONOCYTES # (AUTO) 0.5 X 10^3 (0.0-1.0); MONOCYTES % (AUTO) 6 % (0-12); NEUTROPHILS # (AUTO) 5.2 X 10^3 (1.8-7.8); NEUTROPHILS % (AUTO) 66 % (42-75); PLATELET COUNT 225 10^3/uL (130-400); RED CELL DISTRIBUTION WIDTH 15.5 % (10.0-14.5); WHITE BLOOD COUNT 7.8 10^3/uL (4.3-11.0)
[2018-07-09 15:57] LABS: ALANINE AMINOTRANSFERASE 14 U/L (0-55); ALBUMIN 3.9 GM/DL (3.2-4.5); ALKALINE PHOSPHATASE 100 U/L (40-136); BILIRUBIN,TOTAL 0.3 MG/DL (0.1-1.0); BUN/CREATININE RATIO 13; CALCIUM 8.8 MG/DL (8.5-10.1); CARBON DIOXIDE 26 MMOL/L (21-32); CHLORIDE 102 MMOL/L (98-107); CREATININE SERUM 0.82 MG/DL (0.60-1.30); GFR ESTIMATED > 60; GLUCOSE 210 MG/DL (70-105); POTASSIUM 3.8 MMOL/L (3.6-5.0); SODIUM 139 MMOL/L (135-145); TOTAL PROTEIN 7.3 GM/DL (6.4-8.2)
--- NOTE | 2018-07-09 16:17 | ED Syncope ---
General Chief Complaint: Dizziness/Syncope Stated Complaint: DIZZY, LIGHT HEADED Nursing Triage Note: pt presents to ed with complaints of dizziness/light headedness starting today. pt reports 2 episodes of sync[facility]. Source of Information: Patient, Family Exam Limitations: No Limitations History of Present Illness Date Seen by Provider: Jul 09, 2018 Time Seen by Provider: 16:16 Initial Comments 62-year-old white female presents with a syncopal episode that occurred today. The patient has been having syncopal episodes and states this is her second) following cardiac catheter and stent several weeks ago by Dr. Black. Patient denies associated palpitations, chest pain, shortness of breath, fever, chills, photophobia, headache or stiff neck, associated nausea vomiting or diarrhea, dysuria frequency or flank pain. The patient is scheduled for her second event monitor in the near future. Patient has had similar syncopal episodes in the past for which no clear etiology has been forthcoming. Allergies and Home Medications Allergies Coded Allergies: methylprednisolone (Verified Allergy, Mild, 09/07/09) Penicillins (Unverified Allergy, Unknown, 08/28/11) ketorolac (Verified Allergy, Unknown, ITCHING, 04/12/15) promethazine (Unverified Allergy, Unknown, hallucinations, 02/02/14) venom-honey bee (Unverified Allergy, Unknown, 02/02/14) Uncoded Allergies: TAPE (Allergy, Unknown, 08/16/13) Home Medications Acetaminophen 500 Mg Tablet, 500 MG PO BID PRN for PAIN-MILD, (Reported) Albuterol Sulfate 18 Gm Hfa.aer.ad, 1 PUFF INH Q4H PRN for SHORTNESS OF BREATH, (Reported) Albuterol Sulfate 2.5 Mg/3 Ml Vial.neb, 2.5 MG NEB Q4H PRN for SHORTNESS OF BREATH, (Reported) Aspirin 81 Mg Tablet.dr, 81 MG PO DAILY Prescribed by: REAGAN MCNEILL on 08/20/17 0800 Atorvastatin Calcium 80 Mg Tablet, 80 MG PO HS Prescribed by: REAGAN MCNEILL on 08/20/17 0800 Cephalexin 500 Mg Capsule, 500 MG PO TID Prescribed by: VIANNEY SMITH on 09/05/17 1445 Clopidogrel Bisulfate 75 Mg Tablet, 75 MG PO DAILY Prescribed by: REAGAN MCNEILL on 08/20/17 0800 Isosorbide Mononitrate 30 Mg Tab.er.24h, 30 MG PO DAILY Prescribed by: REAGAN MCNEILL on 08/20/17 0802 Levothyroxine Sodium 150 Mcg Tablet, 150 MCG PO HS, (Reported) Lorazepam 0.5 Mg Tablet, 0.5 MG PO TID three times daily as needed for anxiety or shortness of breath Prescribed by: VIANNEY SMITH on 09/05/17 1445 Nitroglycerin 0.4 Mg Tab.subl, 0.4 MG SL PRN 1 TAB SUBLINGUAL Q5MIN. RETURN TO THE ER IF YOUR CHEST PAIN CONTINUES OR IS UNRESPLVED. Prescribed by: SHALOM RAMÍREZ on 08/20/17 1350 Nitroglycerin 1 Each Patch.td24, 0.4 MG TOP DAILY, (Reported) apply in AM and remove at HS [place] 3 Polyunsat Fatty Acids 1,000 Mg Cap, 1,000 MG PO BID WITH MEALS Prescribed by: REAGAN MCNEILL on 08/20/17 0800 Omeprazole 20 Mg Capsule.dr, 20 MG PO DAILY, (Reported) LAST FILLED #30 04-15-17 Ranolazine 500 Mg Tab.er.12h, 500 MG PO BID Prescribed by: VIANNEY SMITH on 09/05/17 1445 Topiramate 50 Mg Tablet, 100 MG PO BID PRN for HEADACHE, (Reported) TAKES 2 (50MG) TABLETS Warfarin Sodium 5 Mg Tablet, 5 MG PO SuMoWeFrSa, (Reported) Warfarin Sodium 5 Mg Tablet, 7.5 MG PO TuTh, (Reported) TAKES 1 & 1/2 (5MG) TABLET Patient Home Medication List Home Medication List Reviewed: Yes Review of Systems Constitutional: No chills EENTM: No hearing loss Respiratory: No cough Cardiovascular: No chest pain Gastrointestinal: No abdominal pain, No nausea, No vomiting Genitourinary: No dysuria, No frequency Musculoskeletal: No back pain Skin: no symptoms reported; No rash Psychiatric/Neurological: No Symptoms Reported Past Vetcags-Jogxaf-Obltxn Hx Past Med/Social Hx: Reviewed Nursing Past Med/Soc Hx Patient Social History Alcohol Use: Denies Use Recreational Drug Use: No Smoking Status: Never a Smoker 2nd Hand Smoke Exposure: Yes (as a child both parents smoked quite a bit, in the home) Recent Foreign Travel: No Contact w/Someone Who Travel: No Recent Infectious Disease Expo: No Recent Hopitalizations: Yes Physical Abuse: No Sexual Abuse: No Mistreated: No Fear: No Immunizations Up To Date Tetanus Booster (TDap): Less than 5yrs Date of Pneumonia Vaccine: May 05, 2007 Seasonal Allergies Seasonal Allergies: Yes Past Medical History Surgeries: Yes (D&C;NECK SURGERY;CARDIAC CATH;BREAST BX;COLONOSCOPY;UTERINE FIBROID RESECT) Angioplasty, Appendectomy, Breast, Coronary Stent, Gallbladder, Hysterectomy, Orthopedic, Thyroidectomy Respiratory: Yes (CPAP @ HOME) Asthma, Pneumonia, Sleep Apnea, COPD Currently Using CPAP: Yes (@ HS) Cardiac: Yes (2-PE HX) Coronary Artery Disease, Deep Vein Thrombosis, High Cholesterol, Hypertension, Peripheral Vascular, Syncope Neurological: Yes (NEUROPATHY ARMS & FEET) Neuropathy Reproductive Disorders: Yes (FIBROIDS, CHRONIC PELVIC PAIN ) 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, Menopausal Sexually Transmitted Disease: No HIV/AIDS: No Genitourinary: Yes Kidney Stones Gastrointestinal: Yes Gastroesophageal Reflux Musculoskeletal: Yes (POOR MOBIILITY FROM OBESITY-USES MOTORIZED SCOOTER, CHRONIC GENERALIZED PAIN) Degenerate Disk Disease, Arthritis, Back Injury, Chronic Back Pain, Spasms Endocrine: Yes (MORBID OBESITY) Hypothyroidsim HEENT: No Cancer: No Colon Psychosocial: No Integumentary: No Blood Disorders: Yes (BLOOD CLOTS) Adverse Reaction/Blood Tranf: No Family Medical History Arthritis G8 SISTER Cardiovascular disease 03 FATHER Colon cancer 03 MOTHER Completed stroke 03 MOTHER Hypertension 03 MOTHER G8 BROTHER Myocardial infarction 03 MOTHER Thyroid disease G8 SISTER Physical Exam Vital Signs Vital Signs - First Documented 07/09/18 15:08 Temp 97.2 Pulse 66 Resp 18 B/P (MAP) 145/52 (83) Pulse Ox 98 Capillary Refill : Less Than 3 Seconds Height, Weight, BMI Height: 5'2.00" Weight: 198lbs. 8.0oz. 89.615000wf; 57.7 BMI Method:Stated General Appearance: No Apparent Distress, WD/WN HEENT: Normal ENT Inspection Neck: Normal Inspection Cardiovascular: Regular Rate, Rhythm Respiratory: Lungs Clear Gastrointestinal: Normal Bowel Sounds Back: Normal Inspection Extremities: Normal Range of Motion Neurologic/Psychiatric: Alert, Oriented x3, No Motor/Sensory Deficits Progress/Results/Core Measures Results/Orders Lab Results Laboratory Tests Test 07/09/18 15:03 07/09/18 18:00 Range/Units White Blood Count 7.8 4.3-11.0 10^3/uL Red Blood Count 4.42 4.35-5.85 10^6/uL Hemoglobin 12.9 11.5-16.0 G/DL Hematocrit 41 35-52 % Mean Corpuscular Volume 93 80-99 FL Mean Corpuscular Hemoglobin 29 25-34 PG Mean Corpuscular Hemoglobin Concent 31 L 32-36 G/DL Red Cell Distribution Width 15.5 H 10.0-14.5 % Platelet Count 225 130-400 10^3/uL Mean Platelet Volume 10.7 H 7.4-10.4 FL Neutrophils (%) (Auto) 66 42-75 % Lymphocytes (%) (Auto) 26 12-44 % Monocytes (%) (Auto) 6 0-12 % Eosinophils (%) (Auto) 1 0-10 % Basophils (%) (Auto) 0 0-10 % Neutrophils # (Auto) 5.2 1.8-7.8 X 10^3 Lymphocytes # (Auto) 2.1 1.0-4.0 X 10^3 Monocytes # (Auto) 0.5 0.0-1.0 X 10^3 Eosinophils # (Auto) 0.1 0.0-0.3 10^3/uL Basophils # (Auto) 0.0 0.0-0.1 10^3/uL D-Dimer 0.30 0.00-0.49 UG/ML Sodium Level 139 135-145 MMOL/L Potassium Level 3.8 3.6-5.0 MMOL/L Chloride Level 102 98-107 MMOL/L Carbon Dioxide Level 26 21-32 MMOL/L Anion Gap 11 5-14 MMOL/L Blood Urea Nitrogen 11 7-18 MG/DL Creatinine 0.82 0.60-1.30 MG/DL Estimat Glomerular Filtration Rate > 60 BUN/Creatinine Ratio 13 Glucose Level 210 H 70-105 MG/DL Calcium Level 8.8 8.5-10.1 MG/DL Corrected Calcium 8.9 8.5-10.1 MG/DL Total Bilirubin 0.3 0.1-1.0 MG/DL Aspartate Amino Transf (AST/SGOT) 22 5-34 U/L Alanine Aminotransferase (ALT/SGPT) 14 0-55 U/L Alkaline Phosphatase 100 40-136 U/L Troponin I < 0.028 <0.028 NG/ML B-Type Natriuretic Peptide 18.9 <100.0 PG/ML Total Protein 7.3 6.4-8.2 GM/DL Albumin 3.9 3.2-4.5 GM/DL My Orders Orders - DEWEY PURDY MD Cbc With Automated Diff (07/09/18 15:35) Comprehensive Metabolic Panel (07/09/18 15:35) Ua Culture If Indicated (07/09/18 15:35) Troponin I (07/09/18 15:35) Fibrin Degradation Products (07/09/18 15:35) BNP (07/09/18 15:35) Chest 1 View, Ap/Pa Only (07/09/18 15:35) Ekg Tracing (07/09/18 16:52) Vital Signs/I&O 07/09/18 15:08 Temp 97.2 Pulse 66 Resp 18 B/P (MAP) 145/52 (83) Pulse Ox 98 Blood Pressure Mean: 83 Progress Progress Note : Time: 18:21 Progress Note The patient's EKG demonstrated normal sinus rhythm. Chest x-ray failed to demonstrate evidence of acute pathology. The patient's laboratory evaluation was unremarkable other than her urinalysis which is pending. Departure Impression Primary Impression: Syncope and collapse Disposition: 01 HOME, SELF-CARE Condition: Improved Departure-Patient Inst. Decision time for Depature: 18:22 Referrals: JOSE ALBERTO ARIZA DO (PCP) Primary Care Physician PAYAL VIGIL APRN (Family) Primary Care Physician Patient Instructions: Syncope (Fainting) (DC) Add. Discharge Instructions: Follow-up with your doctor on Thursday. Rest at home this . Return if any problems or questions. All discharge instructions reviewed with patient and /or family. Voiced understanding. DEWEY PURDY MD Jul 09, 2018 16:17
--- NOTE | 2018-07-09 16:40 | Diagnostic Imaging Report ---
PATIENT HISTORY: Altered mental status, dizziness, and lightheaded. TECHNIQUE: Single frontal view of the chest. COMPARISON: 09/04/2017. FINDINGS: Lung volumes are normal. No focal consolidation is seen. There is no pleural effusion or pneumothorax. There is stable mild cardiomegaly. The mediastinum appears mildly shifted to the right, but this is stable since the prior exam. Cervical spine fusion hardware is noted. IMPRESSION: Mild cardiomegaly with no acute pulmonary abnormality seen. Dictated by: Dictated on workstation # [id number]
[2018-07-09 18:06] LABS: BILIRUBIN,URINE NEGATIVE (NEGATIVE); CLARITY,URINE CLEAR; COLOR,URINE YELLOW; GLUCOSE, URINE (UA) NEGATIVE (NEGATIVE); KETONES,URINE NEGATIVE (NEGATIVE); LEUKOCYTE ESTERASE ,URINE 1+ (NEGATIVE); NITRITE,URINE NEGATIVE (NEGATIVE); PH,URINE 6 (5-9); PROTEIN,URINE NEGATIVE (NEGATIVE); UROBILINOGEN,URINE NORMAL (NORMAL)
[2018-07-09 18:19] LABS: BACTERIA,URINE TRACE /HPF; RBC,URINE RARE /HPF; SQUAMOUS EPITHELIAL CELL,UR 0-2 /HPF; WBC,URINE RARE /HPF
[2018-07-09 18:30] VITALS: BP 133/70
== END 2018-07-09 18:30 | disposition home or self-care (01) ==
LOC: EDUNIT# 14:12 → ER 14:14
DX: R55 Syncope and collapse (principal); J44.9 Chronic obstructive pulmonary disease, unspecified; I25.10 Atherosclerotic heart disease of native coronary artery without angina pectoris; E78.00 Pure hypercholesterolemia, unspecified; I10 Essential (primary) hypertension; I73.9 Peripheral vascular disease, unspecified; G47.30 Sleep apnea, unspecified; E66.01 Morbid (severe) obesity due to excess calories; E03.9 Hypothyroidism, unspecified; Z85.038 Personal history of other malignant neoplasm of large intestine; Z87.01 Personal history of pneumonia (recurrent); Z82.49 Family history of ischemic heart disease and other diseases of the circulatory system; Z80.0 Family history of malignant neoplasm of digestive organs; Z87.442 Personal history of urinary calculi; Z97.5 Presence of (intrauterine) contraceptive device; Z87.448 Personal history of other diseases of urinary system; Z88.0 Allergy status to penicillin; Z86.718 Personal history of other venous thrombosis and embolism; Z88.4 Allergy status to anesthetic agent; Z88.8 Allergy status to other drugs, medicaments and biological substances; Z95.5 Presence of coronary angioplasty implant and graft; Z91.048 Other nonmedicinal substance allergy status; Z79.51 Long term (current) use of inhaled steroids; Z79.82 Long term (current) use of aspirin; Z79.02 Long term (current) use of antithrombotics/antiplatelets; Z79.01 Long term (current) use of anticoagulants; Z90.49 Acquired absence of other specified parts of digestive tract; Z90.89 Acquired absence of other organs; Z98.890 Other specified postprocedural states
CPT/HCPCS: 36415; 71045; 80053; 81000; 83880; 84484; 85025; 85379; 93005

== ENCOUNTER 2018-07-26 21:51 | Emergency (ER) | payer MEDICARE, MEDICAID ==
[~2018-07-26] VITALS: Ht 157.5 cm; Wt 134.7 kg
[~2018-07-26 21:51] MED LIST changes: +NITR-65 PO
--- OUTSIDE RECORDS SUMMARY | 2018-07-26 21:58 | XMS REPORT | Clinical Summary ---
Author Author [facility] Organization [facility] Address Unknown Phone Unavailable Care Team Providers Care Community Services Coordinator Name Role Phone Timmy Canales PCP Zena Ferrera RN Unavailable Unavailable Raman Haskins MD Unavailable Unavailable Jovanna Heath Unavailable Unavailable Source Comments Some departments are not documenting in the electronic medical record. If you do not see the information that you expected, contact Release of Information in the Health Information Management department at [phone] for further assistance in locating additional records.[facility] Allergies Comments Active Allergy Reactions Severity Noted Date Adhesive Tape (Rosins) RASH 03/23/2014 Levothyroxine RASH 03/23/2014 Esomeprazole Magnesium ANAPHYLAXIS 03/23/2014 Penicillin G HIVES 03/23/2014 Medications End Date Status Medication Sig Dispensed Refills Start Date Active atorvastatin (LIPITOR) 20 Take 20 mg by 0 mg tablet mouth daily. Active naproxen sodium (ANAPROX) Take 550 mg 0 550 mg tablet by mouth twice daily with meals. Active rivaroxaban (XARELTO) 20 Take 20 mg by 0 mg tab tablet mouth. Active omeprazole DR(+) Take 20 mg by 0 (PRILOSEC) 20 mg capsule mouth daily. Active BABY ASPIRIN PO Take by 0 mouth. Active HYDROcodone/acetaminophen Take 1 Tab by 0 (NORCO; VICODIN) 5-325 mg mouth as tablet Needed. Active ACETAMINOPHEN (TYLENOL Take by 0 PO) mouth. Active Problems Problem Noted Date Endometrial hyperplasia [...] Paternal Grandfather Paternal Uncle Sister Social History Date Tobacco Use Types Packs/Day Years Used Never Smoker Alcohol Use Drinks/Week oz/Week Comments No Sex Assigned at Date Recorded Not on file Industry Job Start Date Occupation Not on file Not on file Not on file Travel End Travel History Travel Start No recent travel history available. 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 Blood Pressure 143/86 03/23/2014 2:06 PM LINE CAMERA OPERATOR Pulse 76 03/23/2014 2:06 PM LINE CAMERA OPERATOR Temperature 37.1 C (98.8 F) - Respiratory Rate - 03/23/2014 2:06 PM LINE CAMERA OPERATOR Oxygen Saturation 93% - Inhaled Oxygen - Concentration 03/23/2014 2:06 PM LINE CAMERA OPERATOR Weight 147.1 kg (324 lb 3.2 oz) - Height - - Body Mass Index - Plan of Treatment Health Maintenance Due Date Last Done Comments HEPATITIS C SCREENING 1955 PHYSICAL (COMPREHENSIVE) 1964 EXAM HIV SCREENING 1972 DTAP/TDAP VACCINES (1 - 12/10/1975 Tdap) CERVICAL CANCER SCREENING 12/10/1987 BREAST CANCER SCREENING 1997 COLORECTAL CANCER 12/10/2007 SCREENING SHINGLES RECOMBINANT 12/10/2007 VACCINE (1 of 2) INFLUENZA VACCINE 2017 Results Not on filefrom Last 3 Months Insurance Payer Benefit Subscriber ID Type Phone Address Plan / Group MEDICARE MEDICARE xxxxxxxxxx [place] Medicaid [place], [place] MEDICAID (Home) [place] [address] Advance Directives Patient has advance care planning documents on file. For more information, please contact: [facility] [address] [place] [address]
--- OUTSIDE RECORDS SUMMARY | 2018-07-26 21:58 | XMS REPORT | Clinical Summary ---
Author Author [facility] Organization [facility] Address Unknown Phone Unavailable Care Team Providers Care Superintendent Meter Tests Name Role Phone Gibson Vaughn CHELA PCP Allergies Active Allergy Reactions Severity Noted Date Comments Adhesive Tape-Silicones Rash Low 03/23/2014 Dexamethasone Nausea And Vomiting, 02/12/2017 Dizziness Esomeprazole Magnesium Anaphylaxis High 03/23/2014 Levothyroxine Rash Low 03/23/2014 Penicillin G Hives 03/23/2014 Promethazine Hives 02/12/2017 Current Medications Prescription Sig. Disp. Refills Start End Date Status Date simvastatin (ZOCOR) 10 MG Take 10 mg by mouth Active tablet nightly. naproxen (NAPROSYN) 500 Take 500 mg by mouth as Active MG tablet needed. levothyroxine (SYNTHROID, Take 150 mcg by mouth Active LEVOTHROID) 150 MCG daily. tablet warfarin (COUMADIN) 7.5 Take 7.5 mg by mouth Active MG tablet every Thursday, , and Thursday. warfarin (COUMADIN) 5 MG Take 5 mg by mouth every Active tablet Thursday, Thursday and Thursday. omeprazole (PRILOSEC) 20 Take 20 mg by mouth Active MG capsule daily. HYDROcodone-acetaminophen Take 1 tablet by mouth Active (NORCO) 5-325 mg per every 6 (six) hours as tablet needed for pain. acetaminophen (TYLENOL) Take 650 mg by mouth as Active 325 MG tablet needed for pain. carboxymethylcellulose 1 drop 3 (three) times a Active (REFRESH PLUS) ophthalmic day as needed. solution topiramate (TOPAMAX) 50 Take 2 tablets (100 mg 120 tablet 11 02/14/20 Active MG tabletIndications: total) by mouth 2 (two) 17 Intractable migraine times a day. without aura and with status migrainosus, Migraine without aura and without status migrainosus, not intractable divalproex (ROSSY DONG) Take 2 tablets (500 mg 120 tablet 11 Active 250 MG delayed-release total) by mouth 2 (two) 17 tabletIndications: times a day. Chronic migraine without aura without status migrainosus, not intractable Active Problems Problem Noted Date Chronic migraine without aura without status migrainosus, not intractable Endometrial hyperplasia without atypia, complex 04/01/2014 Family History Medical History Relation Name Comments Colon cancer Mother Stroke Mother Hyperlipidemia Sister Hypertension Sister Migraines Sister Relation Name Status Comments Mother Sister Social History Tobacco Use Types Packs/Day Years Used Date Never Smoker Smokeless Tobacco: Never Used Alcohol Use Drinks/Week oz/Week Comments No Sex Assigned at Date Recorded Not on file Last Filed Vital Signs Vital Sign Reading Time Taken Blood Pressure 143/74 03/13/2017 2:57 PM CDT Pulse 60 03/13/2017 2:57 PM CDT Temperature - - Respiratory Rate - - Oxygen Saturation - - Inhaled Oxygen - - Concentration Weight 100.1 kg (220 lb 9.6 oz) 03/13/2017 2:57 PM CDT Height 157.5 cm (5' 2") 03/13/2017 2:57 PM CDT Body Mass Index 40.35 03/13/2017 2:57 PM CDT Plan of Treatment Health Maintenance Due Date Last Done Comments Hepatitis C Screen 1955 Medicare Annual Wellness 1955 Td # 1955 Colorectal Screening via 12/10/2007 Colonoscopy Mammogram Screening 12/10/2007 Zoster Vaccine# (1 of 2) 12/10/2007 Influenza Vaccine (Season 03/11/2019 Ended) Results Not on filefrom Last 3 Months
--- OUTSIDE RECORDS SUMMARY | 2018-07-26 21:59 | XMS REPORT ---
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 Active 225997080 Problem Arthritis M19.90 Active 7311245 Problem Migraine with aura and without status migrainosus, not intractable G43.109 Active 5885998 Problem Hyperlipidemia LDL goal <70 E78.5 Active 99131211 Problem Acute gout involving toe of right foot, 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 Active 883991564 Problem Hypothyroidism E03.9 Active 60905236 Problem Coronary artery disease I25.10 Active 90353834 Problem Renal stones N20.0 Active 24902399 ALLERGIES Substance Reaction Event Type Date Status Nexium anaphylaxis Drug Allergy Apr, Active Methylprednisolone nausea and vomiting Drug Allergy Apr, Active Lipitor weaknesss, dizziness, dyspnea Drug Allergy Apr, Active Levothyroxine Sodium rash Drug Allergy Apr, Active Honey Bee Venom Unknown Drug Allergy Apr, Active Dexamethasone nausea and vomiting Drug Allergy Apr, Active Azithromycin hives Drug Allergy Apr, Active Amoxicillin hives Drug Allergy Apr, Active Phenergan hallucinations Drug Allergy Apr, Active Adhesive Unknown Non Drug Allergy Apr, Active Tape Unknown Non Drug Allergy Apr, Active ENCOUNTERS Encounter Location Date Diagnosis [facility] [address] [facility] [id number] [address] Apr, Hypothyroidism E03.9 [place] [address] [address] [place] [id number] [place] [address]19- 9250 04 Apr, 2018 Burning with urination R30.0 ; Type 2 diabetes mellitus with diabetic neuropathic arthropathy, 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 ; Acute bilateral low back pain without sciatica M54.5 and BMI 50.0-59.9 , adult Z68.43 [place] [address] [address] Mar, Hypothyroidism E03.9 [facility] [place] [address] [address] Jan, [address] [address] Jan, Acute non-recurrent maxillary sinusitis J01.00 and BMI 50.0- 59.9, adult Z68.43 [facility] [place] [address] [address] Jan, Congestion of upper respiratory tract J98.8 and BMI 50.0- 59.9, adult Z68.43 [place] [address] [address] Dec, Type 2 diabetes mellitus with diabetic neuropathic arthropathy, 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 ; Morbid obesity with BMI of 50.0-59.9, adult Z68.43 ; Hypothyroidism E03.9 ; Coronary artery disease I25.10 ; Hyperlipidemia LDL goal <70 E78.5 ; Right lower quadrant abdominal pain R10.31 and Acute cystitis with hematuria N30.01 [facility] [address] [address] Dec, Migraine with aura and without status migrainosus, not intractable G43.109 ; Dehydration symptoms R63.8 and BMI 50.0-59.9, adult Z68.43 [place] [address] [address] Oct, [place] [id number] [place] [address] 66789- 5430 Oct, [place] [address] [place] [id number] [place] [address] 96629- 4856 Oct, [facility] [address] [place] [id number] [place] [address] 77240- 5953 September, [place] [address] [place] [id number] [place] [address] 03635- 2677 September, Type 2 diabetes mellitus with diabetic neuropathic arthropathy, 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 ; Hyperlipidemia, unspecified hyperlipidemia type E78.5 ; Personal history of pulmonary embolism Z86.711 ; Coronary artery disease I25.10 and Hypothyroidism E03.9 [place] [address] [place] [id number] [place] [address] 23651- 5383 September, [place] [address] [place] [id number] [place] [address] 75496- 6571 Aug, Type 2 diabetes mellitus with diabetic [...] without aura and with status migrainosus G43.011 [place] [id number] [place] [address] 07907- 7156 Aug, [place] [id number] [place] [address] 62259- 2379 Aug, [place] [address] [place] [id number] [place] [address] 33107- 3069 Jul, Renal stones N20.0 [facility] [id number] [place] [address] 74118 -3872 Jun, Back pain M54.9 ; Kidney stones N20.0 and BMI 50.0-59.9, adult Z68.43 [place] [address] [place] [id number] [place] [address] 58355- 3339 Jun, [place] [address] [place] [id number] [place] [address] 35015- 0950 Apr, [place] [address] [address]- 2545 Apr, [place] [address] 6[address]26- 7003 Apr, Right foot pain M79.671 ; Acute gout involving toe of right foot, 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 and Arthritis M19.90 [place] [address] 16362- 3849 06 Apr, 2017 Gastroesophageal reflux disease without esophagitis K21.9 [place] [address] 42270- 8567 16 Mar, 2017 Hypothyroidism, unspecified E03.9 [place] [address] [place] [id number] [place] [address] 10751- 2271 Feb, [place] [address] [place] [id number] [place] [address] 68155- 1516 25 Jan, 2017 Cervicalgia of ttfsblba-nwntlee-gdxva region M54.2 and Persistent headaches R51 [place] [address] [place] [id number] [place] [address] 62624- 6338 Jan, [place] [address] [place] [id number] [place] [address] 94805- 9601 12 Jan, 2017 Intractable migraine without aura and with status migrainosus G43.011 ; Cervical spine pain M54.2 ; Hyperlipidemia, unspecified hyperlipidemia type E78.5 ; Hypothyroidism E03.9 and Metabolic syndrome E88.81 [place] [address] [place] [id number] [place] [address] 61998- 0991 11 Jan, 2017 Hypothyroidism, unspecified E03.9 [place] [address] [place] [id number] [place] [address] 19684- 8470 Dec, Hypothyroidism, unspecified E03.9 [place] [address] [place] [id number] [place] [address] 32260- 3939 Dec, Hypothyroidism E03.9 [place] [address] [place] [id number] [place] [address] 77657- 4168 Nov, Laceration of left great toe w/o foreign body w/o damage to nail, initial encounter S91.112A [facility] [address] [place] [id number] [place] [address] 30791 -4079 Oct, Pain in left knee M25.562 and Arthritis M19.[address] 56991- 0115 Oct, Hypothyroidism, unspecified E03.9 and Hyperlipidemia, unspecified hyperlipidemia type E78.5 [place] [id number] [place] [address] 94862- 6366 Oct, Gastroesophageal reflux disease without esophagitis K21.9 [place] [address] [place] [id number] [place] [address] 06545- 1439 14 Oct, 2016 Metabolic syndrome E88.81 ; Personal history of pulmonary embolism Z86.711 ; Other specified hypothyroidism E03.8 and Hyperlipidemia, unspecified hyperlipidemia type E78.5 [place] [id number] [place] [address] 08059- 5215 13 Oct, 2016 Personal history of pulmonary embolism Z86.711 ; Dysuria R30.0 ; Metabolic syndrome E88.81 ; Other specified hypothyroidism E03.8 ; Hyperlipidemia, unspecified hyperlipidemia type E78.5 and Morbid obesity with BMI of 50.0-59.9, adult Z68.43 [place] [address] [place] [id number] [place] [address] 80145- 0899 September, [facility] [address] [place] [id number] [place] [address] 07722 -7482 September, Wrist pain, left M25.532 and Acute pain of left knee M25.562 [place] [address] [place] [id number] [place] [address] 33652- 7344 Jul, Dysuria R30.0 [place] [address] [place] [id number] [place] [address] 17167- 3233 Jul, Dysuria R30.0 [place] [address] 64946- 5750 Jul, Left lower quadrant pain R10.32 [place] [address] [place] [id number] [place] [address] 19226- 2945 Jul, [place] [address] 96946- 3128 Jul, Coronary artery disease I25.10 ; Family history of diabetes mellitus Z83.3 ; Morbid obesity with BMI of 50.0-59.9, adult Z68.43 ; Metabolic syndrome E88.81 ; Personal history of pulmonary embolism Z86.711 ; Gastroesophageal reflux disease without esophagitis K21.9 ; Hypothyroidism, unspecified E03.9 ; Hyperlipidemia, unspecified hyperlipidemia type E78.5 and Left lower quadrant pain R10.32 [facility] [place] [id number] [place] [address]990 [address] Jul, [facility] [place] [id number] [place] [address] 29314 -0261 Jul, Morbid obesity with BMI of 50.0-59.9, adult Z68.43 [facility] [place] [id number] [place] [address] 78569 -0462 Jul, Generalized abdominal pain R10.84 [facility] [place] [id number] [place] [address] 17575 -5701 Jun, Muscle strain of right upper back, initial encounter S29.012A [facility] [place] [id number] [place] [address] 00866 -0060 16 Maldonado, 2017 Foreign body (FB) in soft tissue M79.5 [place] [address] [place] [id number] [place] [address] 73103- 3781 Mar, Hypothyroidism, unspecified E03.9 and Arthritis M19.90 [place] [address] [place] [id number] [place] [address] 90919- 6625 13 Feb, 2016 Coronary artery disease I25.10 ; Morbid obesity with BMI of 50.0-59.9, adult Z68.43 ; Metabolic syndrome E88.81 ; Gastroesophageal reflux disease without esophagitis K21.9 ; Hypothyroidism, unspecified E03.9 ; Personal history of pulmonary embolism Z86.711 and Hyperlipidemia, unspecified hyperlipidemia type E78.5 [place] [address] [place] [id number] [place] [address] 77003- 4722 10 Feb, 2016 [facility] [address] [place] [id number] [place] [address] 50981 -7984 12 Jan, 2016 Acute right-sided thoracic back pain M54.6 [place] [address] [place] [id number] [place] [address] 34384- 3987 Jan, Acute pain of left knee M25.562 [place] [address] [place] [id number] [place] [address] 82443- 6939 Dec, Dysuria R30.0 ; Metabolic syndrome E88.81 ; Acute pain of left knee M25.562 ; Acute cystitis with hematuria N30.01 and Acute left eye pain H57.12 [place] [address] [place] [id number] [place] [address] 37426- 2139 Dec, [place] [address] [place] [id number] [place] [address] 22896- 0644 Dec, [place] [address] [place] [id number] [place] [address] 32977- 9327 Dec, Hypothyroidism, unspecified E03.9 [place] [address] [place] [id number] [place] [address] 36201- 5021 Dec, [facility] [place] [address] [address]- 8985 Nov, Peripheral edema R60.9 and Acute pain of left knee M25.562 [facility] [place] [id number] [place] [address] 93710 -6820 September, [place] [id number] [place] [address] 14523- 0726 September, Metabolic syndrome E88.81 and Allergy, subsequent encounter T78.40XD [facility] [address] [place] [address] 58043 -7214 September, Muscle strain T14.8 [place] [id number] [place] [address] 13457- 0818 Aug, Chest pressure R07.89 ; Metabolic syndrome E88.81 ; Morbid obesity with BMI of 50.0-59.9, adult Z68.43 ; Esophageal reflux 530.81 and Shortness of breath R06.[address] [place] [address] 77580- 6011 Aug, [place] [id number] [place] [address] 12360- 4263 Aug, [place] [id number] [place] [address] 87938- 0066 Aug, Hypothyroidism, unspecified E03.9 [place] [id number] [place] [address] 85351- 0414 Aug, Routine health maintenance Z00.00 [facility] [address] [place] [address] 20893 -8859 Aug, [place] [id number] [place] [address] 31959- 2525 Jul, Routine health maintenance Z00.00 ; Family history of diabetes mellitus Z83.3 ; Family history of cancer Z80.9 and Morbid obesity with BMI of 50.0-59.9, adult Z68.43 [facility] [address] [place] [address] 60048 -8055 28 Jul, 2015 Allergic rhinitis J30.9 and Postnasal drip R09.82 [facility] [address] [place] [id number] [place] [address] 18503- 1752 18 Jul, 2015 Influenza J11.1 [facility] [address] [place] [id number] [place] [address] 91484 -3321 08 Jul, 2015 Dysuria R30.0 [facility] [address] [place] [id number] [place] [address] 82907- 8322 Apr, [place] [address] 64068- 7615 Mar, Acute upper respiratory infection, unspecified J06.9 and Hypothyroidism E03.9 [place] [address] [place] [id number] [place] [address] 13162- 5474 Mar, [place] [address] [place] [id number] [place] [address] 49944- 7933 Feb, Coronary artery disease I25.10 [place] [address] [place] [id number] [place] [address] 43487- 7171 Feb, Left foot pain M79.672 [place] [address] [place] [id number] [place] [address] 18545- 4205 Jan, UTI (urinary tract infection) 599.0 [place] [address] [place] [id number] [place] [address] 45313- 9733 Jan, Urinary tract infection, site not specified 599.0 [facility] [address] [place] [id number] [place] [address] 73352- 3367 Jan, Urinary tract infection, site not specified 599.0 [facility] [address] [place] [id number] [place] [address] 40697- 6299 Jan, [facility] [address] [place] [id number] [place] [address] 69773- 9311 Dec, Headache 784.0 [facility] [address] [address]- 2590 Dec, Urinary tract infection, site not specified 599.0 [facility] [address] [place] [address] 52258- 2781 Dec, Urinary tract infection, site not specified 599.0 [facility] [address] [place] [address] 30031- 5378 Dec, Urinary tract infection, site not specified 599.0 [facility] [address] [place] [address] 76213- 2840 Nov, Unspecified sleep apnea 780.57 ; Encounter for long-term ( current) use of anticoagulants V58.61 ; Routine general medical examination at [facility] care facility V70.0 and Arthritis of both knees 716.96 [facility] [address] [place] [id number] [place] [address] 40236- 4305 September, Cat bite of hand 882.0 and Rectal bleeding 569.3 [facility] [address] [address]- 7818 Aug, [facility] [id number] [place] [address] 61294- 7703 Aug, [facility] [address] [address]- 9131 Jul, [facility] [address] [address]- 7402 Jul, [facility] [address] [address]- 6044 Jul, [facility] [address] [place] [id number] [place] [address] 18380- 8620 Jul, [facility] [address] [address]- 9828 Jul, [facility] [address] [place] [id number] [place] [address] 77961- 6955 Jul, [facility] [place] [facility] [address] [id number] [place] [address]- 2105 Jul, [facility] [place] [facility] [address] [id number] [place] [address]- 8608 Jul, [facility] [place] [facility] [address] [id number] [place] [address]- 7259 May, [facility] [place] [facility] [address] [id number] [place] [address]- 1339 May, [facility] [place] [facility] [address] [id number] [place] [address]- 5854 May, [facility] [place] [facility] [address] [id number] [place] [address]- 8593 May, [facility] [place] [facility] [address] [id number] [place] [address]- 6618 May, [facility] [place] [facility] [address] [id number] [place] [address]- 8344 May, [facility] [place] [facility] [address] [id number] [place] [address]- 2521 May, [facility] [place] [facility] [address] [facility] [id number] [place] [address]- 2750 Mar, [facility] [place] [facility] [address] [id number] [address]- 2413 Mar, [facility] [place] [facility] [address] [id number] [address]- 8258 Jan, [facility] [place] [facility] [address] [id number] [place] [address]- 1101 Jan, [facility] [place] [facility] [address] [id number] [place] [address]- 4768 Jan, [facility] [place] [facility] [address] [id number] [place] [address]- 4929 Jan, [facility] [place] [facility] [address] [id number] [place] [address]- 8101 Jan, [facility] [place] [facility] [address] [id number] [place] [address]- 4563 Jan, [facility] [place] [facility] [address] [id number] [place] [address]- 4273 Dec, [facility] [place] [facility] [address] [id number] [place] [address]- 2922 Dec, [facility] [place] [facility] [address] [id number] [place] [address]- 6138 Dec, [facility] [place] [facility] [address] [id number] [place] [address]- 6899 Dec, [facility] [place] [facility] [address] [id number] [place] [address]- 7512 Dec, [facility] [place] [facility] [address] [id number] [place] [address]- 0327 Dec, [facility] [place] [facility] [address] [id number] [place] [address]- 5894 Dec, [facility] [place] [facility] [address] [id number] [place] [address]- 8767 Dec, [facility] [place] [facility] [address] [id number] [place] [address]- 6587 Dec, [facility] [place] [facility] [address] [id number] [place] [address]- 6327 Dec, [facility] [place] [facility] [address] [id number] [place] [address]- 3547 Nov, [facility] [place] [facility] [address] [id number] [place] [address]- 2975 Nov, [facility] [place] [facility] [address] [id number] [place] [address]- 3441 September, [facility] [place] [facility] [address] [id number] [place] [address]- 5800 September, [facility] [place] [facility] [address] [id number] [place] [address]- 6179 September, [facility] [place] [facility] [address] [id number] [place] [address]- 8739 September, [facility] [place] [facility] [address] [id number] [place] [address]- 9325 Aug, [facility] [place] [facility] [address] [id number] [place] [address]- 4179 Aug, [facility] [place] [facility] [address] [id number] [place] [address]- 4463 Aug, [facility] [place] [facility] [address] [id number] [place] [address]- 0528 Aug, [facility] [place] [facility] [address] [id number] [place] [address]- 4987 Aug, [facility] [place] [facility] [address] [id number] [place] [address]- 9105 Aug, [facility] [place] [facility] [address] [id number] [place] [address]- 0857 Aug, [facility] [place] [facility] [address] [id number] [place] [address]- 2505 Aug, [facility] [place] [facility] [address] [id number] [place] [address]- 8358 Aug, [facility] [place] [facility] [address] [id number] [address]- 3775 Aug, [facility] [place] [facility] [address] [id number] [place] [address]- 4719 Aug, [facility] [place] [facility] [address] [id number] [place] [address]- 0850 Aug, [facility] [place] [facility] [address] [id number] [place] [address]- 2436 Jul, [facility] [place] [facility] [address] [id number] [place] [address]- 3697 20 Jul, 2013 [facility] [place] [facility] [address] [id number] [place] [address]- 1404 Jul, [facility] [place] [facility] [address] [id number] [place] 8906 Jul, [facility] [place] [facility] [address] [id number] [place] [address]- 7556 Jul, [facility] [place] [facility] [address] [id number] [place] [address] Jul, [facility] [place] [facility] [address] [id number] [place] [address] 05 Jul, 2013 [facility] [place] [facility] [address] [id number] [place] [address] Jul, [facility] [place] [facility] [address] [id number] [place] [address] Jul, [facility] [place] [facility] [address] [id number] [place] [address] Jul, [facility] [place] [facility] [address] [id number] [place] [address] Jun, [facility] [place] [facility] [address] [facility] [id number] [place] [address] 28 Jun, 2013 [facility] [place] [facility] [address] [id number] [place] [address] 17 Jun, 2013 [facility] [place] [facility] [address] [facility] [id number] [place] [address] 17 Jun, 2013 [facility] [place] [facility] [address] [id number] [place] [address] Jun, [facility] [place] [facility] [address] [facility] [id number] [place] [address] Jun, [facility] [place] [facility] [address] [facility] [id number] [place] [address] Jun, [facility] [place] [facility] [address] [id number] [place] [address] Jun, [facility] [place] [facility] [address] [id number] [place] [address] Jun, [facility] [place] [facility] [address] [id number] [place] [address] [address] Jun, [facility] [place] [facility] [address] [id number] [place] [address] Jun, [facility] [place] [facility] [address] [id number] [place] [address] Jun, [facility] [place] [facility] [address] [id number] [place] [address] May, [facility] [place] [facility] [address] [id number] [place] [address] May, [facility] [place] [facility] [address] [id number] [place] [address] May, [facility] [place] [facility] [address] [id number] [place] [address] May, [facility] [place] [facility] [address] [id number] [place] [address] May, [facility] [place] [facility] [address] [id number] [place] [address] May, [facility] [place] [facility] [address] [id number] [place] [address] May, [facility] [place] [facility] [address] [id number] [place] [address] May, [facility] [place] [facility] [address] [id number] [place] [address] May, [facility] [place] [facility] [address] [id number] [place] [address] May, [facility] [place] [facility] [address] [address] [id number] [place] [address] 08 May, 2013 [facility] [address] [id number] [place] [address] May, [facility] [address] [id number] [place] [address] May, [facility] [address] [id number] [place] [address] May, [facility] [address] [id number] [place] [address] May, [facility] [address] [id number] [place] [address] Apr, [facility] [address] [id number] [place] [address] Apr, [facility] [address] [id number] [place] [address] Apr, [facility] [address] [id number] [place] [address] Apr, [facility] [address] [id number] [place] [address] Mar, [facility] [address] [id number] [place] [address] Mar, [facility] [address] [id number] [place] [address] Mar, [facility] [address] [id number] [place] [address] Mar, [facility] [place] [facility] [address] [id number] [place] [address] Mar, [facility] [address] [id number] [place] [address] Mar, [facility] [address] [id number] [place] [address] Mar, [facility] [place] [facility] [address] [id number] [place] [address] Mar, [facility] [place] [facility] [address] [id number] [place] [address] Mar, [facility] [place] [facility] [address] [id number] [place] [address] Mar, [facility] [place] [facility] [address] [id number] [place] [address] Mar, [facility] [place] [facility] [address] [id number] [place] [address]70 Mar, [facility] [place] [facility] [address] [id number] [place] [address] Feb, [facility] [place] [facility] [address] [id number] [place] [address] 18 Jan, 2013 [facility] [place] [facility] [address] [id number] [place] [address] 17 Jan, 2013 [facility] [place] [facility] [address] [id number] [place] [address] 06 Jan, 2013 [facility] [place] [facility] [address] [id number] [address] 04 Jan, 2013 [facility] [place] [facility] [address] [id number] [address] Jan, [facility] [place] [facility] [address] [id number] [address] Dec, [facility] [place] [facility] [address] [id number] [place] [address] Dec, [facility] [place] [facility] [address] [id number] [place] [address] Dec, [facility] [place] [facility] [address] [id number] [address] Dec, [facility] [place] [facility] [address] [id number] [address] Dec, [facility] [place] [facility] [address] [id number] [place] [address] Dec, [facility] [place] [facility] [address] [facility] [id number] [place] [address] Dec, [facility] [place] [facility] [address] [facility] [id number] [place] [address] Dec, [facility] [place] [facility] [address] [facility] [id number] [place] [address]207 Nov, [facility] [place] [facility] [address] [facility] [id number] [place] [address] Nov, [facility] [place] [facility] [address] [facility] [id number] [place] [address] Nov, [facility] [place] [facility] [address] [facility] [id number] [place] [address] Nov, [facility] [place] [facility] [address] [facility] [id number] [place] [address] Nov, [facility] [place] [facility] [address] [facility] [id number] [place] [address]99 Nov, [facility] [place] [facility] [address] [facility] [id number] [place] [address] Oct, [facility] [address] [facility] [place] [id number] [place] [id number] Oct, [facility] [address] [id number] [place] [id number] Oct, [facility] [address] [id number] [place] [id number] Oct, [facility] [address] [facility] [place] [id number] [place] [id number] Oct, [facility] [place] [facility] [address] [facility] [id number] [place] [address]266 Oct, [facility] [place] [facility] [address] [facility] [id number] [place] [address]24 Oct, [facility] [address] [id number] [place] [address]- 0753 Oct, [facility] [place] [facility] [address] [id number] [place] [address]- 1523 Oct, [facility] [place] [facility] [address] [id number] [place] [address]- 5020 Oct, [facility] [place] [facility] [address] [id number] [place] [address] 7394 Oct, [facility] [place] [facility] [address] [id number] [place] [address]- 4813 September, [facility] [place] [facility] [address] [id number] [place] [address]15 Aug, [facility] [place] [facility] [address] [id number] [place] [address] 5[address] Aug, [facility] [place] [facility] [address] [id number] [place] [address] 2800 Aug, [facility] [place] [facility] [address] [id number] [place] [address] 9908 Aug, [facility] [place] [facility] [address] [id number] [place] [address]- 8745 Jul, [facility] [place] [facility] [address] [id number] [address]80 Jul, [facility] [place] [facility] [address] [id number] [address]- 1149 Jul, [facility] [place] [facility] [address] [id number] [place] [address]- 8904 Jul, [facility] [place] [facility] [address] [id number] [place] [address]- 9320 Jul, [facility] [place] [facility] [address] [id number] [place] [address]- 5064 Jun, [facility] [place] [facility] [address] [id number] [place] [address]- 0883 13 Jun, 2012 [facility] [address] [id number] [place] [address]- 7852 11 Jun, 2012 [facility] [address] [id number] [place] [address]- [address]166 May, [facility] [address] [id number] [place] [address]- 0398 24 May, 2012 [facility] [address] [id number] [place] [address]- 7646 14 May, 2012 [facility] [address] [id number] [place] [address]- 2051 May, [facility] [address] [id number] [place] [address]- 8882 May, [facility] [address] [id number] [place] [address]- 0623 May, [facility] [address] [id number] [place] [address]- 9428 18 Apr, 2012 [facility] [address] [id number] [place] [address]- 6988 18 Apr, 2012 [facility] [address] [id number] [place] [address]- 3801 13 Apr, 2012 [facility] [address] [id number] [place] [address]- 4978 13 Apr, 2012 [facility] [address] [id number] [place] [address]- 4435 13 Apr, 2012 [facility] [address] [id number] [place] [address]- 9570 11 Apr, 2012 [facility] [address] [id number] [place] [address]- 3359 11 Apr, 2012 [facility] [address] [id number] [place] [address]- 5855 Mar, [facility] [address] [id number] [place] [address]- 8663 Mar, [facility] [place] [facility] [address] [id number] [place] [address]- 5936 Mar, [facility] [place] [facility] [address] [id number] [place] [address]- 7716 Mar, [facility] [place] [facility] [address] [id number] [place] [address]- 4146 Jan, [facility] [place] [facility] [address] [id number] [place] [address]- 4495 Jan, [facility] [place] [facility] [address] [id number] [place] [address]- 2526 Jan, [facility] [address] [id number] [place] [address]- 6486 Jan, [facility] [address] [id number] [place] [id number] Dec, [facility] [address] [id number] [place] [address]- [address]959 Dec, [facility] [address] [id number] [place] [id number] Dec, [facility] [address] [id number] [place] [address]- 4876 Dec, [facility] [place] [facility] [address] [id number] [place] [address]- 6706 Dec, [facility] [place] [facility] [address] [id number] [place] [address] 2546 Dec, [facility] [place] [facility] [address] [id number] [place] [address]- 2806 Nov, [facility] [place] [facility] [address] [id number] [place] [address]- 4086 Nov, [facility] [place] [facility] [address] [id number] [place] [address]- 2994 Nov, IMMUNIZATIONS No Known Immunizations SOCIAL HISTORY Never Assessed REASON FOR VISIT Establish Care- NILESH Pineda, pt c/o burning with urination- NILESH Pineda PLAN OF CARE Activity Details Follow Up 3 months or as indicated by lab Reason:DM VITAL SIGNS Height 64 in 2018-04-13 Weight 297.6 lbs 2018-04-13 Temperature 97.6 degrees Fahrenheit 2018-04-13 Heart Rate 63 bpm 2018-04-13 Respiratory Rate 18 2018-04-13 BMI 51.08 kg/m2 2018-04-13 Blood pressure systolic 148 mmHg 2018-04-13 Blood pressure diastolic 72 mmHg 2018-04-13 MEDICATIONS Medication Instructions Dosage Frequency Start Date End Date Duration Status Topamax 100 MG Orally Twice a day 1 tablet 12h Active Albuterol Sulfate 90 mcg/actuation Inhalation every 4 hrs inhale 1 puff by inhalation route every 4 hours as needed 4h Jun, 30 days Active Test strips Test Strips ICD10- E11.9 fasting and 2 hours after one meal daily 2 times weekly. test blood sugar Aug, Active Omeprazole 20 MG TAKE ONE CAPSULE BY MOUTH ONCE DAILY 30 Active Hydrocodone-Acetaminophen 5-325 MG Orally every 6 hrs 1 tablet as needed 6h Apr, Active Pravastatin Sodium 20 MG Orally Once a day 1 tablet 24h Active Tylenol Extra Strength 500 MG Nov, Active Glucometer glucometer ICD10- E11.9 fasting and 2 hours after one meal daily 3 times weekly. test blood sugar Aug, Active Plavix 75 MG Orally Once a day 1 tablet 24h Active Levothyroxine Sodium 150 MCG TAKE ONE TABLET BY MOUTH ONCE DAILY IN THE MORNING ON AN EMPTY STOMACH 30 days Active Albuterol Sulfate 2.5 mg /3 mL (0.083 %) 1 Each by Inhalation route every 4 hours for cough and wheezePRNfor wheezing or cough Nov, Active Nitroglycerin 0.4 MG/HR Transdermal Once a day 1 patch to skin remove after 12 hours 24h Active Aspirin Adult Low Dose 81 MG Orally Once a day 1 tablet 24h Active RESULTS Name Result Date Reference Range A1C (IN HOUSE) 2018-04-13 A1C IN HOUSE 6.6 4.3 - 5.6 % Previous A1c 6.5 Lot [id number] Exp date 07/2019 UA LONG DIP (IN HOUSE) 2018-04-13 Lot # [id number] Exp date 01/2019 Clarity clear Color yellow Odor none GLU negative KORI negative KET negative SG 1.015 BLO 1+ pH 6.0 Protein negative URO 0.2 NIT negative ELIZABET 1+ Lot # Exp date PROCEDURES Procedure Date Ordered Result Body Site URINALYSIS, AUTO, W/O SCOPE Apr 13, 2018 GLYCATED HEMOGLOBIN TEST Apr 13, 2018 [facility] VISIT ESTABLISHED PATIENT Apr 13, 2018 INSTRUCTIONS MEDICATIONS ADMINISTERED No Known Medications MEDICAL (GENERAL) HISTORY Type Description Date Medical History coronary artery disease Medical History gastroesophageal reflux disease (GERD) Medical History back pain Medical History obesity Medical History Carotid plaque 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
--- OUTSIDE RECORDS SUMMARY | 2018-07-26 21:59 | XMS REPORT ---
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 Active 790266435 Problem Arthritis M19.90 Active 3129256 Problem Migraine with aura and without status migrainosus, not intractable G43.109 Active 3546655 Problem Hyperlipidemia LDL goal <70 E78.5 Active 96900733 Problem Acute gout involving toe of right foot, 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 Active 120531857 Problem Hypothyroidism E03.9 Active 36334166 Problem Coronary artery disease I25.10 Active 27062427 Problem Renal stones N20.0 Active 48772671 ALLERGIES No Information ENCOUNTERS Encounter Location Date Diagnosis [facility] [id number] [place] [address] 72158- 1980 Apr, Hypothyroidism E03.9 [facility] [address] [place] [id number] [place] [address] 60811- 5249 Apr, Burning with urination R30.0 ; Type 2 diabetes mellitus with diabetic neuropathic arthropathy, 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 ; Acute bilateral low back pain without sciatica M54.5 and BMI 50.0-59.9 , adult Z68.43 [facility] [id number] [place] [address] 47938- 2758 Mar, Hypothyroidism E03.9 [facility] WALK IN [facility] [id number] [place] [address] 83537 -8713 15 Jan, 2018 [place] [address] 62603- 6064 07 Jan, 2018 Acute non-recurrent maxillary sinusitis J01.00 and BMI 50.0- 59.9, adult Z68.43 [facility] WALK IN [facility] [address] 05873 -2119 04 Jan, 2018 Congestion of upper respiratory tract J98.8 and BMI 50.0- 59.9, adult Z68.43 [place] [address] 72421- 4907 Dec, Type 2 diabetes mellitus with diabetic neuropathic arthropathy, 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 ; Morbid obesity with BMI of 50.0-59.9, adult Z68.43 ; Hypothyroidism E03.9 ; Coronary artery disease I25.10 ; Hyperlipidemia LDL goal <70 E78.5 ; Right lower quadrant abdominal pain R10.31 and Acute cystitis with hematuria N30.01 [facility] WALK IN [facility] [id number] [place] [address] 49519 -8515 Dec, Migraine with aura and without status migrainosus, not intractable G43.109 ; Dehydration symptoms R63.8 and BMI 50.0-59.9, adult Z68.43 [place] [id number] [place] [address] 99293- 4742 Oct, [place] [id number] [place] [address] 62382- 1891 Oct, [place] [address] 12705- 2048 Oct, [place] [address] 42317- 7902 September, [place] [address] [id number] [place] [address] 13796- 3451 September, Type 2 diabetes mellitus with diabetic neuropathic arthropathy, 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 ; Hyperlipidemia, unspecified hyperlipidemia type E78.5 ; Personal history of pulmonary embolism Z86.711 ; Coronary artery disease I25.10 and Hypothyroidism E03.9 [facility] [id number] [place] [address] 66316- 9996 September, [place] [id number] [place] [address] 09782- 9870 Aug, Type 2 diabetes mellitus with diabetic [...] without aura and with status migrainosus G43.011 [place] [address] [id number] [place] [address] 45597- 1241 Aug, [place] [id number] [place] [address] 65129- 8391 Aug, [place] [id number] [place] [address] 25797- 4089 Jul, Renal stones N20.0 [facility] IN [facility] [id number] [place] [address] 89624 -0799 Jun, Back pain M54.9 ; Kidney stones N20.0 and BMI 50.0-59.9, adult Z68.43 [place] [id number] [place] [address] 43540- 9909 Jun, [facility] [id number] [place] [address] 62121- 7332 Apr, [place] [id number] [place] [address] 78547- 6177 Apr, [place] [id number] [place] [address] 72622- 3493 15 Apr, 2017 Right foot pain M79.671 ; Acute gout involving toe of right foot, 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 and Arthritis M19.90 [place] [id number] [place] [address] 11919- 4055 06 Apr, 2017 Gastroesophageal reflux disease without esophagitis K21.9 [place] [address] 49603- 0328 16 Mar, 2017 Hypothyroidism, unspecified E03.[address] 02692- 3069 11 Feb, [address] 31611- 1999 25 Jan, 2017 Cervicalgia of towcpjrv-wbcjgqn-ynlcx region M54.2 and Persistent headaches R51 [address] 09580- 1116 20 Jan, [address] 38180- 8264 12 Jan, 2017 Intractable migraine without aura and with status migrainosus G43.011 ; Cervical spine pain M54.2 ; Hyperlipidemia, unspecified hyperlipidemia type E78.5 ; Hypothyroidism E03.9 and Metabolic syndrome E88.81 [place] [id number] [place] [address] 76921- 7378 Jan, Hypothyroidism, unspecified E03.9 [place] [id number] [place] [address] 31708- 5722 Dec, Hypothyroidism, unspecified E03.[address] 82000- 9043 Dec, Hypothyroidism E03.9 [place] [id number] [place] [address] 82451- 3758 Nov, Laceration of left great toe w/o foreign body w/o damage to nail, initial encounter S91.112A [facility] [id number] [place] [address] 44869 -9342 Oct, Pain in left knee M25.562 and Arthritis M19.90 [place] [address] [address] [id number] [place] [address] 27469- 7961 27 Oct, 2016 Hypothyroidism, unspecified E03.9 and Hyperlipidemia, unspecified hyperlipidemia type E78.5 [place] [id number] [place] [address] 21123- 6410 Oct, Gastroesophageal reflux disease without esophagitis K21.9 [place] [address] [address] [id number] [place] [address] 58145- 2960 14 Oct, 2016 Metabolic syndrome E88.81 ; Personal history of pulmonary embolism Z86.711 ; Other specified hypothyroidism E03.8 and Hyperlipidemia, unspecified hyperlipidemia type E78.5 [place] [id number] [place] [address] 25584- 5609 13 Oct, 2016 Personal history of pulmonary embolism Z86.711 ; Dysuria R30.0 ; Metabolic syndrome E88.81 ; Other specified hypothyroidism E03.8 ; Hyperlipidemia, unspecified hyperlipidemia type E78.5 and Morbid obesity with BMI of 50.0-59.9, adult Z68.43 [place] [address] [id number] [place] [address] 68107- 2598 September, [facility] [id number] [place] [address] 79603 -8018 September, Wrist pain, left M25.532 and Acute pain of left knee M25.562 [place] [address] [id number] [place] [address] 46404- 0455 Jul, Dysuria R30.0 [place] [address] [address] [id number] [place] [address] 98674- 6066 Jul, Dysuria R30.0 [place] [address] [address] [id number] [place] [address] 28893- 1576 Jul, Left lower quadrant pain R10.32 [place] [address] [address] [id number] [place] [address] 40623- 6260 14 Jul, [address] 06522- 6824 Jul, Coronary artery disease I25.10 ; Family history of diabetes mellitus Z83.3 ; Morbid obesity with BMI of 50.0-59.9, adult Z68.43 ; Metabolic syndrome E88.81 ; Personal history of pulmonary embolism Z86.711 ; Gastroesophageal reflux disease without esophagitis K21.9 ; Hypothyroidism, unspecified E03.9 ; Hyperlipidemia, unspecified hyperlipidemia type E78.5 and Left lower quadrant pain R10.32 [facility] W[facility] IN [address] 49306 -8820 09 Jul, 2016 [facility] [address] 95298 -7565 08 Jul, 2016 Morbid obesity with BMI of 50.0-59.9, adult Z68.43 [facility] [address] 42995 -8624 Jul, Generalized abdominal pain R10.84 [facility] [address] 81710 -5180 02 Jun, 2016 Muscle strain of right upper back, initial encounter S29.012A [facility] [address] 50753 -9457 May, Foreign body (FB) in soft tissue M79.5 [place] [id number] [place] [address] 30061- 5495 Mar, Hypothyroidism, unspecified E03.9 and Arthritis M19.90 [place] [id number] [place] [address] 49733- 6001 13 Feb, 2016 Coronary artery disease I25.10 ; Morbid obesity with BMI of 50.0-59.9, adult Z68.43 ; Metabolic syndrome E88.81 ; Gastroesophageal reflux disease without esophagitis K21.9 ; Hypothyroidism, unspecified E03.9 ; Personal history of pulmonary embolism Z86.711 and Hyperlipidemia, unspecified hyperlipidemia type E78.5 [place] [address] [id number] [place] [address] 04988- 6570 Feb, [facility] WALK IN [place] [address] 72953 -2268 Jan, Acute right-sided thoracic back pain M54.6 [place] [address] 28638- 9508 Jan, Acute pain of left knee M25.562 [place] [address] 27271- 7147 Dec, Dysuria R30.0 ; Metabolic syndrome E88.81 ; Acute pain of left knee M25.562 ; Acute cystitis with hematuria N30.01 and Acute left eye pain H57.12 [place] [address] 38140- 2688 Dec, [place] [address] 84532- 7037 Dec, [place] [address] 01662- 3576 Dec, Hypothyroidism, unspecified E03.9 [place] [address] [address] [id number] [place] [address] 72803- 3140 Dec, [place] [address] 94589- 1426 Nov, Peripheral edema R60.9 and Acute pain of left knee M25.562 [facility] WALK IN [place] [address] 96230 -2250 September, [place] [address] 28487- 7484 September, Metabolic syndrome E88.81 and Allergy, subsequent encounter T78.40XD [facility] N [address] [place] [address] 01110 -3817 September, Muscle strain T14.8 [place] [id number] [place] [address] 65697- 1633 Aug, Chest pressure R07.89 ; Metabolic syndrome E88.81 ; Morbid obesity with BMI of 50.0-59.9, adult Z68.43 ; Esophageal reflux 530.81 and Shortness of breath R06.02 [place] [id number] [place] [address] 48690- 8446 Aug, [place] [address] [id number] [place] [address] 65782- 2374 Aug, [place] [id number] [place] [address] 71898- 1936 Aug, Hypothyroidism, unspecified E03.9 [place] [id number] [place] [address] 12035- 5730 Aug, Routine health maintenance Z00.00 [facility] [place] [id number] [place] [address] 32850 -1069 Aug, [place] [id number] [place] [address] 07079- 6526 Jul, Routine health maintenance Z00.00 ; Family history of diabetes mellitus Z83.3 ; Family history of cancer Z80.9 and Morbid obesity with BMI of 50.0-59.9, adult Z68.43 [facility] [address] [place] [address] 41758 -1535 Jul, Allergic rhinitis J30.9 and Postnasal drip R09.82 [place] [id number] [place] [address] 63809- 8522 18 Jul, 2015 Influenza J11.1 [facility] WALK IN [place] [id number] [place] [address] 38707 -9282 08 Jul, 2015 Dysuria R30.0 [place] [id number] [address]- 5770 Apr, [facility] [address] [address]- 3872 Mar, Acute upper respiratory infection, unspecified J06.9 and Hypothyroidism E03.9 [facility] [address] [address]- 7797 Mar, [facility] [address] [place] [address] 17287- 0159 Feb, Coronary artery disease I25.10 [facility] [address] [place] [address] 90429- 0691 Feb, Left foot pain M79.672 [facility] [id number] [address]- 2611 Jan, UTI (urinary tract infection) 599.0 [facility] [address] [address]- 7161 Jan, Urinary tract infection, site not specified 599.0 [facility] [address] [address]- 7128 Jan, Urinary tract infection, site not specified 599.0 [facility] [address] [address]- 5312 Jan, [facility] [id number] [address]- 1698 Dec, Headache 784.0 [facility] [id number] [address]- 2728 Dec, Urinary tract infection, site not specified 599.0 [facility] [id number] [address]- 0430 Dec, Urinary tract infection, site not specified 599.0 [facility] [address] [facility] [id number] [address]- 0171 Dec, Urinary tract infection, site not specified 599.0 [facility] [address] [address]- 1932 Nov, Unspecified sleep apnea 780.57 ; Encounter for long-term ( current) use of anticoagulants V58.61 ; Routine general medical examination at [facility] care facility V70.0 and Arthritis of both knees 716.96 [facility] [id number] [place] [address] 28621- 3018 September, Cat bite of hand 882.0 and Rectal bleeding 569.3 [facility] [address] [address]- 9615 Aug, [facility] [id number] [place] [address] 28668- 6639 Aug, [facility] [id number] [address]- 8409 Jul, [facility] [id number] [place] [address] 08369- 5497 Jul, [facility] [address] [address]- 1963 Jul, [facility] [id number] [place] [address] 03616- 9526 Jul, [facility] [address] [address]- 1642 Jul, [facility] [address] [address]- 4185 Jul, [facility] [address] [address]- 0248 Jul, [facility] [id number] 7558 Jul, [facility] [address]- 2153 May, [facility] [id number] [place] [address] [place] [address]- 1546 May, [facility] [place] [facility] [address] [id number] [place] [address]- 6241 May, [facility] [place] [facility] [address] [id number] [place] [address]- 0131 May, [facility] [place] [facility] [address] [id number] [place] [address]- 4729 May, [facility] [place] [facility] [address] [id number] [place] [address]- 5064 May, [facility] [place] [facility] [address] [id number] [place] [address]- 6523 May, [facility] [place] [facility] [address] [id number] [place] [address]- 3891 Mar, [facility] [place] [facility] [address] [id number] [place] [address]- 0705 Mar, [facility] [place] [facility] [address] [id number] [place] [address]- 9089 08 Jan, 2013 [facility] [place] [facility] [address] [id number] [place] [address]- 8734 08 Jan, 2013 [facility] [place] [facility] [address] [id number] [place] [address]- 0432 08 Jan, 2013 [facility] [place] [facility] [address] [id number] [place] [address]- 3074 08 Jan, 2013 [facility] [place] [facility] [address] [id number] [address]- 6936 05 Jan, 2013 [facility] [place] [facility] [address] [id number] [place] [address]- 0567 05 Jan, 2013 [facility] [place] [facility] [address] [id number] [place] [address]- 5302 Dec, [facility] [place] [facility] [address] [id number] [place] [address]- 4444 Dec, [facility] [place] [facility] [address] [id number] [place] [address]- 6214 Dec, [facility] [place] [facility] [address] [id number] [place] [address]- 4561 Dec, [facility] [place] [facility] [address] [id number] [place] [address]- 2709 Dec, [facility] [place] [facility] [address] [id number] [place] [address]- 0316 Dec, [facility] [place] [facility] [address] [id number] [place] [address]- 5088 Dec, [facility] [place] [facility] [address] [id number] [place] [address]- 0448 Dec, [facility] [place] [facility] [address] [id number] [place] [address]- 1515 Dec, [facility] [place] [facility] [address] [id number] [place] [address]- 8928 Dec, [facility] [place] [facility] [address] [id number] [place] [address]- 6725 Nov, [facility] [place] [facility] [address] [id number] [place] [address]- 1005 Nov, [facility] [place] [facility] [address] [id number] [place] [address]- 9569 September, [facility] [place] [facility] [address] [id number] [place] [address]- 8060 September, [facility] [place] [facility] [address] [id number] [place] [address]- 8257 September, [facility] [place] [facility] [address] [id number] [place] [address]- 1540 September, [facility] [place] [facility] [address] [id number] [place] [address]- 4619 Aug, [facility] [place] [facility] [address] [id number] [place] [address]- 7630 Aug, [facility] [place] [facility] [address] [id number] [place] [address]- 5329 Aug, [facility] [place] [facility] [address] [id number] [place] [address]- 1467 Aug, [facility] [place] [facility] [address] [id number] [place] [address]- 6574 Aug, [facility] [place] [facility] [address] [id number] [place] [address]- 0581 Aug, [facility] [place] [facility] [address] [id number] [place] [address]- 5756 Aug, [facility] [place] [facility] [address] [id number] [place] [address]- 7748 Aug, [facility] [place] [facility] [address] [id number] [place] [address]- 0214 Aug, [facility] [place] [facility] [address] [id number] [place] [address]- 0187 Aug, [facility] [place] [facility] [address] [id number] [place] [address]- 6231 Aug, [facility] [place] [facility] [address] [id number] [place] [address]- 3645 Aug, [facility] [place] [facility] [address] [id number] [address]- 4614 Jul, [facility] [place] [facility] [address] [id number] [address]- 7648 Jul, [facility] [place] [facility] [address] [id number] [place] [address]- 6132 Jul, [facility] [place] [facility] [address] [id number] [place] [address]- 6786 Jul, [facility] [place] [facility] [address] [id number] [place] [address]- 0329 Jul, [facility] [place] [facility] [address] [id number] [place] [address]- 1079 06 Jul, 2013 [facility] [place] [facility] [address] [id number] [place] [address]- 6793 Jul, [facility] [place] [facility] [address] [id number] [place] [address]- 2170 Jul, [facility] [place] [facility] [address] [id number] [place] [address]- 9077 Jul, [facility] [place] [facility] [address] [id number] [place] [address]- 6286 Jul, [facility] [place] [facility] [address] [id number] [place] [address]- 9423 Jun, [facility] [place] [facility] [address] [id number] [place] [address]- 0337 Jun, [facility] [place] [facility] [address] [facility] [id number] [place] [address]- 4261 Jun, [facility] [place] [facility] [address] [id number] [place] [address]- 0584 Jun, [facility] [place] [facility] [address] [facility] [id number] [place] [address]- 3702 Jun, [facility] [place] [facility] [address] [facility] [id number] [place] [address]- 6284 Jun, [facility] [place] [facility] [address] [facility] [id number] [place] [address]- 1758 Jun, [facility] [place] [facility] [address] [id number] [place] [address]- 2095 Jun, [facility] [place] [facility] [address] [id number] [place] [address]- 7992 Jun, [facility] [place] [facility] [address] [facility] [id number] [place] [address]- 4927 04 Jun, 2013 [facility] [place] [facility] [address] [facility] [id number] [address]- 7474 Jun, [facility] [place] [facility] [address] [id number] [place] [address]- 5829 Jun, [facility] [place] [facility] [address] [id number] [place] [address]- 4150 May, [facility] [place] [facility] [address] [id number] [place] [address] May, [facility] [place] [facility] [address] [id number] [place] [address] May, [facility] [place] [facility] [address] [id number] [place] [address] May, [facility] [place] [facility] [address] [id number] [place] [address] May, [facility] [place] [facility] [address] [id number] [place] [address] May, [facility] [place] [facility] [address] [id number] [place] [address] May, [facility] [place] [facility] [address] [id number] [place] [address] May, [facility] [place] [facility] [address] [id number] [place] [address] May, [facility] [place] [facility] [address] [id number], [place] [address] May, [facility] [place] [facility] [address] [id number], [place] [address] May, [facility] [place] [facility] [address] [id number], [place] [address] May, [facility] [place] [facility] [address] [id number], [place] [address] May, [facility] [place] [facility] [address] [id number] [place] [address] May, [facility] [place] [facility] [address] [id number] [place] [address] May, [facility] [address] [id number] [place] [address] Apr, [facility] [address] [id number] [place] [address] Apr, [facility] [address] [id number] [place] [address] Apr, [facility] [address] [id number] [place] [address] Apr, [facility] [address] [id number] [place] [address] Mar, [facility] [address] [id number] [place] [address] Mar, [facility] [address] [id number] [place] [address] Mar, [facility] [address] [id number] [place] [address] Mar, [facility] [address] [id number] [place] [address] Mar, [facility] [address] [id number] [place] [address] Mar, [facility] [address] [id number] [place] [address] Mar, [facility] [address] [id number] [place] [address] Mar, [facility] [place] [facility] [address] [id number] [place] [address] Mar, [facility] [place] [facility] [address] [id number] [place] [address] Mar, [facility] [address] [id number] [place] [address] Mar, [facility] [place] [facility] [address] [id number] [place] [address] 05 Mar, 2013 [facility] [place] [facility] [address] [id number] [place] [address] Feb, [facility] [place] [facility] [address] [id number] [place] [address] 18 Jan, 2013 [facility] [place] [facility] [address] [id number] [place] [address] 17 Jan, 2013 [facility] [place] [facility] [address] [id number] [place] [address] 06 Jan, 2013 [facility] [place] [facility] [address] [id number] [place] [address] 04 Jan, 2013 [facility] [place] [facility] [address] [id number] [place] [address] Jan, [facility] [place] [facility] [address] [id number] [place] [address] Dec, [facility] [place] [facility] [address] [id number] [place] [address] Dec, [facility] [place] [facility] [address] [id number] [place] [address] Dec, [facility] [place] [facility] [address] [id number] [place] [address] Dec, [facility] [place] [facility] [address] [id number] [place] [address] Dec, [facility] [place] [facility] [address] [id number] [place] [address] Dec, [facility] [place] [facility] [address] [id number] [place] [address]99 Dec, [facility] [place] [facility] [address] [id number] [place] [address] Dec, [facility] [place] [facility] [address] [id number], [place] [address] Nov, [facility] [place] [facility] [address] [id number] [place] [address] Nov, [facility] [place] [facility] [address] [facility] [id number] [place] [address] Nov, [facility] [place] [facility] [address] [id number] [place] [address] Nov, [facility] [place] [facility] [address] [facility] [id number] [place] [address] Nov, [facility] [place] [facility] [address] [id number], [place] [address] Nov, [facility] [place] [facility] [address] [facility] [id number] [place] [address] Oct, [facility] [address] [id number] [place] [id number] Oct, [facility] [address] [id number] [place] [id number] Oct, [facility] [address] [id number] [place] [id number] Oct, [facility] [address] [facility] [id number] [place] [id number] Oct, [facility] [place] [facility] [address] [facility] [id number], [place] [address] Oct, [facility] [place] [facility] [address] [facility] [id number][place] [address] Oct, [facility] [place] [facility] [address] [id number], [place] [address] 9[address] Oct, [facility] [place] [facility] [address] [facility] [id number] [place] [address] 9988 Oct, [facility] [place] [facility] [address] [facility] [id number], [place] [address]83 10 Oct, 2012 [facility] [place] [facility] [address] [facility] [id number], [place] [address] Oct, [facility] [address] [id number] [place] [address] September, [facility] [place] [facility] [address] [id number] [place] [address] 1071 Aug, [facility] [place] [facility] [address] [id number] [place] [address] 4699 Aug, [facility] [place] [facility] [address] [id number] [place] [address] 1566 Aug, [facility] [place] [facility] [address] [id number] [place] [address] Aug, [facility] [place] [facility] [address] [id number] [place] [address] 6446 Jul, [facility] [place] [facility] [address] [id number] [place] [address]157 Jul, [facility] [place] [facility] [address] [id number] [place] [address]18 Jul, [facility] [place] [facility] [address] [id number] [place] [address] 49[address] Jul, [facility] [place] [facility] [address] [id number] [place] [address]858 Jul, [facility] [place] [facility] [address] [id number] [place] [address] Jun, [facility] [place] [facility] [address] [id number], [place] [address] Jun, [facility] [place] [facility] [address] [id number] [place] [address]28 Jun, [facility] [place] [facility] [address] [id number] [place] [address] May, [facility] [place] [facility] [address] [id number] [place] [address]60 May, [facility] [place] [facility] [address] [id number] [place] [address]87 14 May, 2012 [facility] [address] [id number] [place] [address] 11 May, 2012 [facility] [address] [id number] [place] [address] 07 May, 2012 [facility] [address] [id number] [place] [address]272 04 May, 2012 [facility] [address] [id number] [place] [address] 18 Apr, 2012 [facility] [address] [id number] [place] [address]65 18 Apr, 2012 [facility] [address] [id number] [place] [address]65 13 Apr, 2012 [facility] [address] [id number] [place] [address] 0016 13 Apr, 2012 [facility] [address] [id number] [place] [address] 13 Apr, 2012 [facility] [address] [id number] [place] [address] Apr, [facility] [address] [id number] [place] [address] 9963 11 Apr, 2012 [facility] [address] [id number] [place] [address]395 Mar, [facility] [address] [id number] [place] [address] 9764 Mar, [facility] [address] [id number] [place] [address]337 Mar, [facility] [address] [id number] [place] [address]106 09 Mar, 2012 [facility] [address] [id number] [place] [address]92 Jan, [facility] [id number] [address] Jan, [facility] [id number] [address]66 Jan, [facility] [id number], [place] [address] Jan, [facility] [id number] [address] Dec, [facility] [id number] [address] Dec, [facility] [id number] [place] [id number] Dec, [facility] [id number] [place] [address]26 Dec, [facility] [id number] [place] [address]26 Dec, [facility] [address], [place] [address] Dec, [facility] [address], [place] [address]157 Nov, [facility] [id number], [place] [address] Nov, [facility] [id number], [place] [address]28 Nov, IMMUNIZATIONS No Known Immunizations SOCIAL HISTORY Never Assessed REASON FOR VISIT refill request PLAN OF CARE VITAL SIGNS MEDICATIONS Medication Instructions Dosage Frequency Start Date End Date Duration Status Levothyroxine Sodium 150 MCG TAKE ONE TABLET BY MOUTH ONCE DAILY IN THE MORNING ON AN EMPTY STOMACH 30 days Active RESULTS No Results PROCEDURES [...]
--- OUTSIDE RECORDS SUMMARY | 2018-07-26 22:00 | XMS REPORT ---
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 Active 043718428 Problem Arthritis M19.90 Active 2245591 Problem Migraine with aura and without status migrainosus, not intractable G43.109 Active 3818292 Problem Hyperlipidemia LDL goal <70 E78.5 Active 62949420 Problem Acute gout involving toe of right foot, 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 Active 812746428 Problem Hypothyroidism E03.9 Active 85659756 Problem Coronary artery disease I25.10 Active 07247216 Problem Renal stones N20.0 Active 80718484 ALLERGIES No Information ENCOUNTERS Encounter Location Date Diagnosis [facility] [id number] [place] [address] 63721- 2579 Mar, Hypothyroidism E03.9 [facility] [id number] [place] [address] 00062 -0431 15 Jan, 2018 [facility] [address] [place] [id number] [place] [address] 91015- 9246 07 Jan, 2018 Acute non-recurrent maxillary sinusitis J01.00 and BMI 50.0- 59.9, adult Z68.43 [facility] [address] [place] [address] 10921 -7024 Jan, Congestion of upper respiratory tract J98.8 and BMI 50.0- 59.9, adult Z68.43 [place] [address] [address]- 6587 Dec, Type 2 diabetes mellitus with diabetic neuropathic arthropathy, 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 ; Morbid obesity with BMI of 50.0-59.9, adult Z68.43 ; Hypothyroidism E03.9 ; Coronary artery disease I25.10 ; Hyperlipidemia LDL goal <70 E78.5 ; Right lower quadrant abdominal pain R10.31 and Acute cystitis with hematuria N30.01 [facility] [address] [address] Dec, Migraine with aura and without status migrainosus, not intractable G43.109 ; Dehydration symptoms R63.8 and BMI 50.0-59.9, adult Z68.43 [place] [address] 38820- 1074 Oct, [place] [address] 15318- 4192 Oct, [place] [address] 70385- 8761 Oct, [facility] [address] [address]- [address] September, [place] [address] 04928- 9980 September, Type 2 diabetes mellitus with diabetic neuropathic arthropathy, 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 ; Hyperlipidemia, unspecified hyperlipidemia type E78.5 ; Personal history of pulmonary embolism Z86.711 ; Coronary artery disease I25.10 and Hypothyroidism E03.9 [facility] [address] 80839- 8448 September, [place] [address] 40237- 9179 Aug, Type 2 diabetes mellitus with diabetic [...] without aura and with status migrainosus G43.011 [place] [address] 30871- 2136 Aug, [place] [address] 61758- 9121 Aug, [place] [address] 89716- 3106 Jul, Renal stones N20.0 [facility] [address] [address] -[address] Jun, Back pain M54.9 ; Kidney stones N20.0 and BMI 50.0-59.9, adult Z68.43 [place] [address] 68324- 3329 Jun, [place] [address] 25053- 1626 Apr, [place] [address] 99360- 4731 Apr, [place] [address] 44294- 3897 Apr, Right foot pain M79.671 ; Acute gout involving toe of right foot, 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 and Arthritis M19.90 [place] [address] 71714- 4569 06 Apr, 2017 Gastroesophageal reflux disease without esophagitis K21.9 [place] [address] 86580- 7681 Mar, Hypothyroidism, unspecified E03.9 [place] [address] [place] [id number] [place] [address] 52764- 2146 Feb, [facility] [address] [place] [id number] [place] [address] 03417- 4989 25 Jan, 2017 Cervicalgia of eppjsykn-rzuhech-bcboq region M54.2 and Persistent headaches R51 [place] [address] 12656- 2076 20 Jan, 2017 [place] [address] [place] [id number] [place] [address] 41202- 2454 12 Jan, 2017 Intractable migraine without aura and with status migrainosus G43.011 ; Cervical spine pain M54.2 ; Hyperlipidemia, unspecified hyperlipidemia type E78.5 ; Hypothyroidism E03.9 and Metabolic syndrome E88.81 [place] [address] 03716- 4570 Jan, Hypothyroidism, unspecified E03.9 [place] [address] [place] [id number] [place] [address] 79135- 2519 Dec, Hypothyroidism, unspecified E03.9 [place] [address] [place] [id number] [place] [address] 96893- 9414 Dec, Hypothyroidism E03.9 [place] [address] [place] [id number] [place] [address] 48042- 3887 Nov, Laceration of left great toe w/o foreign body w/o damage to nail, initial encounter S91.112A [facility] [address] [place] [id number] [place] [address] 23405 -3730 Oct, Pain in left knee M25.562 and Arthritis M19.90 [facility] [address] [place] [id number] [place] [address] 93271- 0744 Oct, Hypothyroidism, unspecified E03.9 and Hyperlipidemia, unspecified hyperlipidemia type E78.5 [place] [address] [place] [id number] [place] [address] 53683- 4817 Oct, Gastroesophageal reflux disease without esophagitis K21.9 [place] [address] [place] [id number] [place] [address] 80701- 1646 14 Oct, 2016 Metabolic syndrome E88.81 ; Personal history of pulmonary embolism Z86.711 ; Other specified hypothyroidism E03.8 and Hyperlipidemia, unspecified hyperlipidemia type E78.5 [place] [address] [place] [id number] [place] [address] 30603- 3904 13 Oct, 2016 Personal history of pulmonary embolism Z86.711 ; Dysuria R30.0 ; Metabolic syndrome E88.81 ; Other specified hypothyroidism E03.8 ; Hyperlipidemia, unspecified hyperlipidemia type E78.5 and Morbid obesity with BMI of 50.0-59.9, adult Z68.43 [place] [address] [place] [id number] [place] [address] 42860- 7866 September, [facility] [address] [place] [id number] [place] [address] 92805 -1702 September, Wrist pain, left M25.532 and Acute pain of left knee M25.562 [place] [address] [place] [id number] [place] [address] 89789- 1386 Jul, Dysuria R30.0 [place] [address] [place] [id number] [place] [address] 93836- 1629 Jul, Dysuria R30.0 [place] [address] [place] [id number] [place] [address] 70538- 6840 Jul, Left lower quadrant pain R10.32 [place] [address] [place] [id number] [place] [address] 73402- 1607 Jul, [place] [address] [place] [id number] [place] [address] 01670- 6743 Jul, Coronary artery disease I25.10 ; Family history of diabetes mellitus Z83.3 ; Morbid obesity with BMI of 50.0-59.9, adult Z68.43 ; Metabolic syndrome E88.81 ; Personal history of pulmonary embolism Z86.711 ; Gastroesophageal reflux disease without esophagitis K21.9 ; Hypothyroidism, unspecified E03.9 ; Hyperlipidemia, unspecified hyperlipidemia type E78.5 and Left lower quadrant pain R10.32 [facility] [place] [id number] [place] [address] 30142 -7080 09 Jul, 2016 [facility] [address] 8[address] 08 Jul, 2016 Morbid obesity with BMI of 50.0-59.9, adult Z68.43 [facility] [address] 02511 -4757 07 Jul, 2016 Generalized abdominal pain R10.84 [facility] [address] 76658 -9364 02 Jun, 2016 Muscle strain of right upper back, initial encounter S29.012A [facility] [address] 92598 -1703 16 May, 2016 Foreign body (FB) in soft tissue M79.[address] 42828- 3213 Mar, Hypothyroidism, unspecified E03.9 and Arthritis M19.90 [place] [id number] [place] [address] 95487- 1509 13 Feb, 2016 Coronary artery disease I25.10 ; Morbid obesity with BMI of 50.0-59.9, adult Z68.43 ; Metabolic syndrome E88.81 ; Gastroesophageal reflux disease without esophagitis K21.9 ; Hypothyroidism, unspecified E03.9 ; Personal history of pulmonary embolism Z86.711 and Hyperlipidemia, unspecified hyperlipidemia type E78.5 [place] [id number] [place] [address] 72582- 9072 10 Feb, 2016 [facility] [place] [id number] [place] [address] 56058 -7001 12 Jan, 2016 Acute right-sided thoracic back pain M54.6 [place] [address] [address]- 6[address] Jan, Acute pain of left knee M25.562 [place] [address] [place] [id number] [place] [address] 45963- 5913 Dec, Dysuria R30.0 ; Metabolic syndrome E88.81 ; Acute pain of left knee M25.562 ; Acute cystitis with hematuria N30.01 and Acute left eye pain H57.12 [place] [address] [place] [id number] [place] [address] 08970- 9624 Dec, [place] [address] [place] [id number] [place] [address] 46292- 1206 Dec, [place] [address] [place] [id number] [place] [address] 37695- 5100 Dec, Hypothyroidism, unspecified E03.9 [place] [id number] [place] [address] 11048- 3161 Dec, [place] [address] [place] [id number] [place] [address] 36968- 1963 Nov, Peripheral edema R60.9 and Acute pain of left knee M25.562 [facility] [place] [id number] [place] [address] 40043 -3027 September, [place] [address] [place] [id number] [place] [address] 07052- 8965 September, Metabolic syndrome E88.81 and Allergy, subsequent encounter T78.40XD [facility] [place] [id number] [place] [address] 59908 -7291 September, Muscle strain T14.8 [place] [address] [place] [id number] [place] [address] 99884- 7197 Aug, Chest pressure R07.89 ; Metabolic syndrome E88.81 ; Morbid obesity with BMI of 50.0-59.9, adult Z68.43 ; Esophageal reflux 530.81 and Shortness of breath R06.02 [place] [address] [place] [id number] [place] [address] 91646- 9449 Aug, [facility] [address] [place] [id number] [place] [address] 42462- 2882 Aug, [facility] [address] [place] [id number] [place] [address] 96346- 8083 Aug, Hypothyroidism, unspecified E03.9 [place] [address] 39763- 1565 Aug, Routine health maintenance Z00.00 [facility] [address] [place] [id number] [place] [address] 22578 -8252 Aug, [place] [address] 07213- 3993 Jul, Routine health maintenance Z00.00 ; Family history of diabetes mellitus Z83.3 ; Family history of cancer Z80.9 and Morbid obesity with BMI of 50.0-59.9, adult Z68.43 [facility] [address] [place] [id number] [place] [address] 32088 -5842 Jul, Allergic rhinitis J30.9 and Postnasal drip R09.82 [place] [address] [place] [id number] [place] [address] 49626- 1596 Jul, Influenza J11.1 [facility] [place] [address] [place] [id number] [place] [address] 17837 -7706 Jul, 2016 Dysuria R30.0 [facility] [address] [place] [id number] [place] [address] 16390- 0722 Apr, [place] [address] [place] [id number] [place] [address] 25275- 9538 Mar, Acute upper respiratory infection, unspecified J06.9 and Hypothyroidism E03.9 [facility] [address] [place] [id number] [place] [address] 41401- 8695 Mar, [place] [address] 78165- 2936 Feb, Coronary artery disease I25.10 [facility] [address] [address]- 0011 Feb, Left foot pain M79.672 [facility] [address] [place] [id number] [address] Jan, UTI (urinary tract infection) 599.0 [facility] [address] [address]- 6129 Jan, Urinary tract infection, site not specified 599.0 [place] [address] [place] [address] 12853- 8767 Jan, Urinary tract infection, site not specified 599.0 [place] [address] [address]- 9116 Jan, [facility] [address] [address]- 9603 Dec, Headache 784.0 [facility] [address] [address]- 7632 Dec, Urinary tract infection, site not specified 599.0 [place] [address] [place] [id number] [address]- 0061 Dec, Urinary tract infection, site not specified 599.0 [place] [address] [place] [id number] [address]- 9392 Dec, Urinary tract infection, site not specified 599.0 [place] [address] [place] [id number] [address]- 3340 Nov, Unspecified sleep apnea 780.57 ; Encounter for long-term ( current) use of anticoagulants V58.61 ; Routine general medical examination at health care facility V70.0 and Arthritis of both knees 716.96 [facility] [address] [place] [id number] [address]- 1724 September, Cat bite of hand 882.0 and Rectal bleeding 569.3 [facility] [address] [facility] [id number] [place] [address]- 9045 14 Aug, 2014 [facility] [address] [facility] [id number], [place] [address]- 5282 Aug, [facility] [address] [facility] [id number] [address]- 9447 Jul, [facility] [address] [facility] [id number] [address]- 4675 Jul, [facility] [address] [facility] [id number] [place] [address]- 6307 Jul, [facility] [address] [facility] [id number], [place] [address]- 3538 Jul, [facility] [address] [place] [id number] [address]- 6650 Jul, [facility] [address] [facility] [id number] [address]- 6943 Jul, [facility] [address] [facility] [id number], [place] [address]- 5764 Jul, [facility] [address] [facility] [id number] [address]- 9353 Jul, [facility] [address] [place] [id number] [address]- 8265 May, [facility] [address] [facility] [id number] [address]- 7922 May, [facility] [address] [facility] [id number] [address]- 4094 May, [facility] [address] [facility] [id number], [place] [address]- 0916 May, [facility] [address] [place] [id number] [address]- 3917 May, [facility] [address] [facility] [id number] [place] [address]- 3939 16 May, 2014 [facility] [place] [facility] [address] [id number] [place] [address]- 1492 May, [facility] [place] [facility] [address] [id number] [place] [address]- 0076 Mar, [facility] [place] [facility] [address] [id number] [place] [address]- 1337 Mar, [facility] [place] [facility] [address] [id number] [place] [address]- 8296 08 Jan, 2013 [facility] [place] [facility] [address] [id number] [place] [address]- 3598 08 Jan, 2013 [facility] [place] [facility] [address] [id number] [place] [address]- 5996 Jan, 2013 [facility] [place] [facility] [address] [id number] [place] [address]- 5449 Jan, 2013 [facility] [place] [facility] [address] [id number] [place] [address]- 8382 05 Jan, 2014 [facility] [place] [facility] [address] [id number] [place] [address]- 3755 Jan, [facility] [place] [facility] [address] [id number] [place] [address]- 9323 Dec, [facility] [place] [facility] [address] [id number] [place] [address]- 5472 Dec, [facility] [place] [facility] [address] [id number] [place] [address]- 6988 Dec, [facility] [place] [facility] [address] [id number] [place] [address]- 9799 Dec, [facility] [place] [facility] [address] [id number] [place] [address]- 7779 Dec, [facility] [place] [facility] [address] [id number] [place] [address]- 4017 Dec, [facility] [place] [facility] [address] [id number] [place] [address]- 1785 Dec, [facility] [place] [facility] [address] [id number] [place] [address]- 6745 Dec, [facility] [place] [facility] [address] [id number] [place] [address]- 6928 Dec, [facility] [place] [facility] [address] [id number] [place] [address]- 0681 Dec, [facility] [place] [facility] [address] [id number] [place] [address]- 3159 Nov, [facility] [place] [facility] [address] [id number] [place] [address]- 2851 Nov, [facility] [place] [facility] [address] [id number] [place] [address]- 7054 September, [facility] [place] [facility] [address] [id number] [place] [address]- 9531 September, [facility] [place] [facility] [address] [id number] [place] [address]- 3242 September, [facility] [place] [facility] [address] [id number] [place] [address]- 9008 September, [facility] [place] [facility] [address] [id number] [place] [address]- 7950 Aug, [facility] [place] [facility] [address] [id number] [place] [address]- 9704 Aug, [facility] [place] [facility] [address] [id number] [place] [address]- 0423 Aug, [facility] [place] [facility] [address] [id number] [place] [address]- 1722 Aug, [facility] [place] [facility] [address] [id number] [place] [address]- 0024 Aug, [facility] [place] [facility] [address] [id number] [place] [address]- 5434 Aug, [facility] [place] [facility] [address] [id number] [place] [address]- 4705 Aug, [facility] [place] [facility] [address] [id number] [place] [address]- 2964 Aug, [facility] [place] [facility] [address] [id number] [place] [address]- 9280 Aug, [facility] [place] [facility] [address] [id number] [place] [address]- 4263 Aug, [facility] [place] [facility] [address] [id number] [place] [address]- 5872 Aug, [facility] [place] [facility] [address] [id number] [place] [address]- 1433 Aug, [facility] [place] [facility] [address] [id number] [place] [address]- 0487 Jul, [facility] [place] [facility] [address] [id number] [place] [address]- 7388 Jul, [facility] [place] [facility] [address] [id number] [place] [address]- 9151 Jul, [facility] [place] [facility] [address] [facility] [id number] [place] [address]- 5668 Jul, [facility] [place] [facility] [address] [id number] [place] [address]- 1803 Jul, [facility] [place] [facility] [address] [id number] [place] [address]- 5254 Jul, [facility] [place] [facility] [address] [id number] [place] [address]- 6576 05 Jul, 2013 [facility] [place] [facility] [address] [id number] [place] [address]- 5684 05 Jul, 2013 [facility] [place] [facility] [address] [facility] [id number] [place] [address]- 9179 Jul, [facility] [place] [facility] [address] [id number] [place] [address] Jul, [facility] [place] [facility] [address] [id number] [place] [address] Jun, [facility] [place] [facility] [address] [id number] [place] [address] Jun, [facility] [place] [facility] [address] [id number] [place] [address] Jun, [facility] [place] [facility] [address] [id number] [place] [address] Jun, [facility] [place] [facility] [address] [id number] [place] [address] Jun, [facility] [place] [facility] [address] [id number] [place] [address] Jun, [facility] [place] [facility] [address] [id number] [place] [address] Jun, [facility] [place] [facility] [address] [id number] [place] [address] Jun, [facility] [place] [facility] [address] [id number] [place] [address] Jun, [facility] [place] [facility] [address] [id number] [place] [address] Jun, [facility] [place] [facility] [address] [id number] [place] [address] Jun, [facility] [place] [facility] [address] [id number] [place] [address] Jun, [facility] [place] [facility] [address] [id number] [place] [address] May, [facility] [place] [facility] [address] [id number] [place] [address] May, [facility] [place] [facility] [address] [id number] [place] [address] May, [facility] [address] [id number] [place] [address] May, [facility] [place] [facility] [address] [id number] [place] [address] May, [facility] [place] [facility] [address] [id number] [place] [address] May, [facility] [place] [facility] [address] [id number] [place] [address] May, [facility] [place] [facility] [address] [id number] [place] [address] May, [facility] [place] [facility] [address] [id number] [place] [address] May, [facility] [place] [facility] [address] [id number] [place] [address] May, [facility] [place] [facility] [address] [id number] [place] [address] May, [facility] [place] [facility] [address] [id number] [place] [address] May, [facility] [place] [facility] [address] [id number] [place] [address] May, [facility] [place] [facility] [address] [id number] [place] [address] May, [facility] [place] [facility] [address] [id number] [place] [address] May, [facility] [place] [facility] [address] [id number] [place] [address] Apr, [facility] [place] [facility] [address] [id number] [place] [address] Apr, [facility] [place] [facility] [address] [id number] [place] [address] Apr, [facility] [place] [facility] [address] [id number] [place] [address] Apr, [facility] [place] [facility] [address] [id number] [place] [address] Mar, [facility] [place] [facility] [address] [id number] [place] [address] Mar, [facility] [place] [facility] [address] [id number] [place] [address] Mar, [facility] [facility] [address] [id number] [place] [address] Mar, [facility] [place] [facility] [address] [id number] [place] [address] Mar, [facility] [place] [facility] [address] [id number] [place] [address] Mar, [facility] [place] [facility] [address] [id number] [place] [address] Mar, [facility] [place] [facility] [address] [id number] [place] [address] Mar, [facility] [place] [facility] [address] [id number] [place] [address] Mar, [facility] [place] [facility] [address] [id number] [place] [address] Mar, [facility] [place] [facility] [address] [id number] [place] [address] Mar, [facility] [place] [facility] [address] [id number] [place] [address] Mar, [facility] [place] [facility] [address] [id number] [place] [address] Feb, [facility] [place] [facility] [address] [id number] [place] [address] 18 Jan, 2013 [facility] [place] [facility] [address] [id number] [place] [address] 17 Jan, 2013 [facility] [place] [facility] [address] [id number] [place] [address] 06 Jan, 2013 [facility] [place] [facility] [address] [id number] [place] [address] 04 Jan, 2013 [facility] [place] [facility] [address] [id number] [place] [address] Jan, [facility] [place] [facility] [address] [id number] [place] [address] Dec, [facility] [place] [facility] [address] [id number] [place] [address] Dec, [facility] [place] [facility] [address] [id number] [place] [address] Dec, [facility] [place] [facility] [address] [id number] [place] [address] Dec, [facility] [place] [facility] [address] [id number] [place] [address] Dec, [facility] [place] [facility] [address] [id number] [place] [address] Dec, [facility] [address] [id number] [place] [address] Dec, [facility] [address] [id number] [place] [address] Dec, [facility] [place] [facility] [address] [id number] [place] [address] Nov, [facility] [facility] [address] [id number] [place] [address] Nov, [facility] [address] [id number] [place] [address] Nov, [facility] [place] [address] [id number] [place] [address]85 Nov, [facility] [facility] [address] [id number] [address] Nov, [facility] [address] [facility] [id number], [place] [address] Nov, [facility] [address] [facility] [id number][place] [address] Oct, [facility] [address] [id number] [place] [id number] Oct, [facility] [address] [id number] [place] [id number] Oct, [facility] [address] [id number] [place] [id number] Oct, [facility] [address] [facility] [id number] [place] [id number] Oct, [facility] [address] [facility] [id number][place] [address] Oct, [facility] [address] [facility] [id number][place] [address] Oct, [facility] [address] [facility] [id number][place] [address] Oct, [facility] [address] [facility] [id number] [address] Oct, [facility] [address] [facility] [id number], [place] [address] Oct, [facility] [address] [facility] [id number], [place] [address] Oct, [facility] [address] [facility] [id number][place] [address] September, [facility] [address] [facility] [id number][place] [address] Aug, [facility] [address] [facility] [id number][place] [address] Aug, [facility] [address] [facility] [id number][place] [address] Aug, [facility] [address] [id number] [place] [address] Aug, [facility] [address] [id number] [place] [address] Jul, [facility] [address] [id number] [place] [address] Jul, [facility] [address] [id number] [place] [address] Jul, [facility] [address] [id number] [place] [address] Jul, [facility] [address] [id number] [place] [address] Jul, [facility] [address] [id number] [place] [address] Jun, [facility] [address] [id number] [place] [address] Jun, [facility] [address] [id number] [place] [address] Jun, [facility] [address] [facility] [id number] [place] [address] May, [facility] [address] [id number] [place] [address] May, [facility] [address] [id number] [place] [address]843 May, [facility] [address] [id number] [place] [address] 3364 May, [facility] [address] [id number] [place] [address] 1476 May, [facility] [address] [facility] [id number], [place] [address] May, [facility] [address] [id number] [place] [address] 18 Apr, 2012 [facility] [address] [id number] [place] [address]- 1686 18 Apr, 2012 [facility] [address] [id number] [place] [address] 13 Apr, 2012 [facility] [address] [id number] [place] [address]- [address] 13 Apr, 2012 [facility] [address] [id number] [place] [address]- [address]497 13 Apr, 2012 [facility] [address] [id number] [place] [address]- [address]36 Apr, [facility] [address] [facility] [id number] [place] [address]- [address]360 Apr, [facility] [address] [id number] [place] [address]- 1048 Mar, [facility] [address] [id number] [place] [address]- 8847 Mar, [facility] [address] [facility] [id number] [place] [address]- [address]797 Mar, [facility] [address] [facility] [id number] [place] [address]- [address]164 Mar, [facility] [address] [id number], [place] [address]- [address] Jan, [facility] [address] [facility] [id number] [place] [address]- 4108 10 Jan, 2012 [facility] [address] [facility] [id number] [place] [address]- 2567 Jan, [facility] [address] [facility] [id number], [place] [address] 47[address] Jan, [facility] [place] [address] [facility] [id number][place] [id number] Dec, [facility] [address] [facility] [id number][place] [address] Dec, [facility] [address] [id number] [id number] Dec, [facility] [address] [id number], [place] [address]99 Dec, [facility] [id number], [place] [address] Dec, [facility] [address] [id number], [place] [address]- [address] Dec, [facility] [id number], [place] [address] Nov, [facility] [id number], [place] [address]- [address] Nov, [facility] [id number], [place] [address] Nov, IMMUNIZATIONS No Known Immunizations SOCIAL HISTORY [...] Surgical History total hysterectomy w/bilat salpingo-oopherectomy 2015 Surgical History Stent placed 08/19/2017 Hospitalization History Surgery(s) only Hospitalization History Stent placed 08/19/2017 Hospitalization History Syncope- Karina Cm 12/2017
--- OUTSIDE RECORDS SUMMARY | 2018-07-26 22:00 | XMS REPORT ---
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 Active 836016066 Problem Arthritis M19.90 Active 5948042 Problem Migraine with aura and without status migrainosus, not intractable G43.109 Active 4788810 Problem Hyperlipidemia LDL goal <70 E78.5 Active 68356071 Problem Acute gout involving toe of right foot, 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 Active 125525236 Problem Hypothyroidism E03.9 Active 15920272 Problem Coronary artery disease I25.10 Active 34072622 Problem Renal stones N20.0 Active 14478515 ALLERGIES No Information ENCOUNTERS Encounter Location Date Diagnosis [facility] [address] [id number] [address] 15 Jan, 2018 [facility] [id number] [place] [address] 75618- 6064 07 Jan, 2018 Acute non-recurrent maxillary sinusitis J01.00 and BMI 50.0- 59.9, adult Z68.43 [facility] [id number] [place] [address] 46048 -6639 04 Jan, 2018 Congestion of upper respiratory tract J98.8 and BMI 50.0- 59.9, adult Z68.43 [facility] [id number] [place] [address] 87827- 8932 Dec, Type 2 diabetes mellitus with diabetic neuropathic arthropathy, 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 ; Morbid obesity with BMI of 50.0-59.9, adult Z68.43 ; Hypothyroidism E03.9 ; Coronary artery disease I25.10 ; Hyperlipidemia LDL goal <70 E78.5 ; Right lower quadrant abdominal pain R10.31 and Acute cystitis with hematuria N30.01 [facility] [address] [address] Dec, Migraine with aura and without status migrainosus, not intractable G43.109 ; Dehydration symptoms R63.8 and BMI 50.0-59.9, adult Z68.43 [place] [address] 29943- 6[address] Oct, [place] [address] 23912- 1621 Oct, [place] [address] 04914- 7926 Oct, [place] [address] 74538- 8168 September, [facility] [address] 9[address]77- 7311 September, Type 2 diabetes mellitus with diabetic neuropathic arthropathy, 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 ; Hyperlipidemia, unspecified hyperlipidemia type E78.5 ; Personal history of pulmonary embolism Z86.711 ; Coronary artery disease I25.10 and Hypothyroidism E03.9 [facility] [id number] [place] [address] 04493- 9158 September, [place] [address] 89287- 9800 Aug, Type 2 diabetes mellitus with diabetic [...] without aura and with status migrainosus G43.011 [place] [address] 25320- 7089 Aug, [place] [address] 43617- 4188 Aug, [place] [address] 29980- 4641 Jul, Renal stones N20.0 [facility] [address] 15734 -5809 Jun, Back pain M54.9 ; Kidney stones N20.0 and BMI 50.0-59.9, adult Z68.43 [place] [address] 03562- 2470 Jun, [place] [address] 51884- 9315 Apr, [place] [address] 06969- 0358 Apr, [place] [address] 08123- 2013 Apr, Right foot pain M79.671 ; Acute gout involving toe of right foot, 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 and Arthritis M19.90 [place] [address] 89426- 3043 06 Apr, 2017 Gastroesophageal reflux disease without esophagitis K21.9 [place] [address] 10558- 9897 16 Mar, 2017 Hypothyroidism, unspecified E03.9 [place] [address] 37986- 5302 Feb, [facility] [id number] [place] [address] 85017- 0627 Jan, Cervicalgia of yzzysmfu-ksqmpps-yiufs region M54.2 and Persistent headaches R51 [facility] [id number] [place] [address] 01131- 3142 20 Jan, 2017 [place] [address] 04260- 3186 12 Jan, 2017 Intractable migraine without aura and with status migrainosus G43.011 ; Cervical spine pain M54.2 ; Hyperlipidemia, unspecified hyperlipidemia type E78.5 ; Hypothyroidism E03.9 and Metabolic syndrome E88.81 [place] [id number] [place] [address] 72886- 0941 Jan, Hypothyroidism, unspecified E03.9 [place] [address] 43350- 4339 Dec, Hypothyroidism, unspecified E03.9 [place] [id number] [place] [address] 34734- 2471 Dec, Hypothyroidism E03.9 [place] [id number] [place] [address] 83152- 8988 Nov, Laceration of left great toe w/o foreign body w/o damage to nail, initial encounter S91.112A [facility] [id number] [place] [address] 44806 -7142 Oct, Pain in left knee M25.562 and Arthritis M19.90 [place] [id number] [place] [address] 86294- 5389 Oct, Hypothyroidism, unspecified E03.9 and Hyperlipidemia, unspecified hyperlipidemia type E78.5 [facility] [id number] [place] [address] 33060- 1874 Oct, Gastroesophageal reflux disease without esophagitis K21.9 [place] [address] 77014- 1293 14 Oct, 2016 Metabolic syndrome E88.81 ; Personal history of pulmonary embolism Z86.711 ; Other specified hypothyroidism E03.8 and Hyperlipidemia, unspecified hyperlipidemia type E78.5 [place] [address] [place] [address] 85800- 6200 13 Oct, 2016 Personal history of pulmonary embolism Z86.711 ; Dysuria R30.0 ; Metabolic syndrome E88.81 ; Other specified hypothyroidism E03.8 ; Hyperlipidemia, unspecified hyperlipidemia type E78.5 and Morbid obesity with BMI of 50.0-59.9, adult Z68.43 [place] [id number] [place] [address] 17950- 3502 September, [facility] [address] [place] [address] 36926 -2063 September, Wrist pain, left M25.532 and Acute pain of left knee M25.562 [place] [id number] [place] [address] 64019- 6829 Jul, Dysuria R30.0 [place] [id number] [place] [address] 19031- 2573 Jul, Dysuria R30.0 [place] [id number] [place] [address] 06627- 4458 Jul, Left lower quadrant pain R10.32 [place] [address] [place] [address] 08605- 2319 14 Jul, 2016 [place] [id number] [place] [address] 31290- 7901 09 Jul, 2016 Coronary artery disease I25.10 ; Family history of diabetes mellitus Z83.3 ; Morbid obesity with BMI of 50.0-59.9, adult Z68.43 ; Metabolic syndrome E88.81 ; Personal history of pulmonary embolism Z86.711 ; Gastroesophageal reflux disease without esophagitis K21.9 ; Hypothyroidism, unspecified E03.9 ; Hyperlipidemia, unspecified hyperlipidemia type E78.5 and Left lower quadrant pain R10.32 [facility] N [address] [place] [address] 94778 -6151 09 Jul, 2016 [facility] [place] [id number] [place] [address] 05115 -2892 Jul, Morbid obesity with BMI of 50.0-59.9, adult Z68.43 [facility] [place] [id number] [place] [address] 00258 -7865 Jul, Generalized abdominal pain R10.84 [facility] [place] [id number] [place] [address] 08551 -5345 Jun, Muscle strain of right upper back, initial encounter S29.012A [facility] [id number] [place] [address] 31777 -6543 May, Foreign body (FB) in soft tissue M79.5 [id number] [place] [address] 37822- 2356 Mar, Hypothyroidism, unspecified E03.9 and Arthritis M19.90 [id number] [place] [address] 50195- 1730 Feb, Coronary artery disease I25.10 ; Morbid obesity with BMI of 50.0-59.9, adult Z68.43 ; Metabolic syndrome E88.81 ; Gastroesophageal reflux disease without esophagitis K21.9 ; Hypothyroidism, unspecified E03.9 ; Personal history of pulmonary embolism Z86.711 and Hyperlipidemia, unspecified hyperlipidemia type E78.5 [place] [id number] [place] [address] 86969- 1114 Feb, [facility] [place] [id number] [place] [address] 59719 -7416 Jan, Acute right-sided thoracic back pain M54.6 [place] [id number] [place] [address] 14909- 1594 Jan, Acute pain of left knee M25.562 [place] [id number] [place] [address] 58946- 7008 Dec, Dysuria R30.0 ; Metabolic syndrome E88.81 ; Acute pain of left knee M25.562 ; Acute cystitis with hematuria N30.01 and Acute left eye pain H57.12 [place] [id number] [place] [address] 54251- 1698 Dec, [place] [address] 96713- 3008 Dec, [place] [id number] [place] [address] 97858- 3337 Dec, Hypothyroidism, unspecified E03.9 [place] [id number] [place] [address] 94364- 4978 Dec, [place] [id number] [place] [address] 23026- 4881 Nov, Peripheral edema R60.9 and Acute pain of left knee M25.562 [facility] [id number] [place] [address] 92036 -6751 September, [id number] [place] [address] 62033- 2849 September, Metabolic syndrome E88.81 and Allergy, subsequent encounter T78.40XD [facility] [id number] [place] [address] 60212 -7753 September, Muscle strain T14.8 [place] [id number] [place] [address] 54661- 0214 Aug, Chest pressure R07.89 ; Metabolic syndrome E88.81 ; Morbid obesity with BMI of 50.0-59.9, adult Z68.43 ; Esophageal reflux 530.81 and Shortness of breath R06.02 [place] [id number] [place] [address] 75476- 2420 Aug, [place] [address] 23238- 9666 Aug, [facility] [id number] [place] [address] 25546- 6446 Aug, Hypothyroidism, unspecified E03.9 [place] [id number] [place] [address] 94907- 6987 Aug, Routine health maintenance Z00.00 [facility] [place] [address] 34701 -6433 Aug, [place] [address] 88729- 9742 Jul, Routine health maintenance Z00.00 ; Family history of diabetes mellitus Z83.3 ; Family history of cancer Z80.9 and Morbid obesity with BMI of 50.0-59.9, adult Z68.43 [facility] [address] 11252 -3882 Jul, Allergic rhinitis J30.9 and Postnasal drip R09.[address] 00397- 8707 Jul, Influenza J11.1 [facility] [address] 69119 -4771 Jul, Dysuria R30.0 [id number] [place] [address] 53704- 1429 Apr, [place] [id number] [place] [address] 71974- 7020 Mar, Acute upper respiratory infection, unspecified J06.9 and Hypothyroidism E03.[address] 35804- 4503 Mar, [place] [address] 11784- 3268 Feb, Coronary artery disease I25.10 [place] [address] 79350- 1696 Feb, Left foot pain M79.672 [place] [address] [place] [address] 90435- 4028 Jan, UTI (urinary tract infection) 599.0 [facility] [address] [place] [address] 12891- 1672 Jan, Urinary tract infection, site not specified 599.0 [place] [id number] [place] [address] 40296- 1573 Jan, Urinary tract infection, site not specified 599.0 [place] [id number] [place] [address] 42376- 1657 Jan, [place] [id number] [place] [address] 76996- 7937 Dec, Headache 784.0 [place] [id number] [place] [address] 39921- 9559 Dec, Urinary tract infection, site not specified 599.0 [place] [address] [place] [address] 13584- 4949 Dec, Urinary tract infection, site not specified 599.0 [place] [address] [place] [address] 23030- 3292 Dec, Urinary tract infection, site not specified 599.0 [place] [address] [place] [address] 17628- 5782 Nov, Unspecified sleep apnea 780.57 ; Encounter for long-term ( current) use of anticoagulants V58.61 ; Routine general medical examination at health care facility V70.0 and Arthritis of both knees 716.96 [place] [address] [place] [address] 42843- 2607 September, Cat bite of hand 882.0 and Rectal bleeding 569.3 [place] [address] [place] [address] 91356- 3441 Aug, [facility] [place] [facility] [address] [id number] [place] [address]- 7385 13 Aug, 2014 [facility] [place] [facility] [address] [id number] [place] [address]- 2311 Jul, [facility] [place] [facility] [address] [id number] [place] [address]- 3313 Jul, [facility] [place] [facility] [address] [id number] [place] [address]- 4296 Jul, [facility] [place] [facility] [address] [id number] [place] [address]- 2358 Jul, [facility] [place] [facility] [address] [id number] [place] [address]- 4252 Jul, [facility] [place] [facility] [address] [id number] [place] [address]- 6340 Jul, [facility] [place] [facility] [address] [id number] [place] [address]- 2064 Jul, [facility] [place] [facility] [address] [id number] [place] [address]- 8023 Jul, [facility] [place] [facility] [address] [id number] [place] [address]- 2563 May, [facility] [place] [facility] [address] [id number] [place] [address]- 7606 May, [facility] [place] [facility] [address] [id number] [address]- 0859 May, [facility] [place] [facility] [address] [id number] [place] [address]- 7082 May, [facility] [place] [facility] [address] [id number] [place] [address]- 7771 May, [facility] [place] [facility] [address] [id number], [place] [address]- 8951 May, [facility] [place] [facility] [address] [id number], [place] [address]- 4834 May, [facility] [place] [facility] [address] [id number] [place] [address]- 1787 Mar, [facility] [place] [facility] [address] [id number] [place] [address]- 6647 Mar, [facility] [place] [facility] [address] [id number] [place] [address]- 0246 08 Jan, 2013 [facility] [place] [facility] [address] [id number] [place] [address]- 4414 08 Jan, 2013 [facility] [place] [facility] [address] [id number] [place] [address]- 2089 08 Jan, 2013 [facility] [place] [facility] [address] [id number] [place] [address]- 2797 Jan, 2013 [facility] [place] [facility] [address] [id number] [place] [address]- 3197 Jan, [facility] [place] [facility] [address] [id number] [place] [address]- 8293 Jan, [facility] [place] [facility] [address] [id number] [place] [address]- 8217 Dec, [facility] [place] [facility] [address] [id number] [place] [address]- 1689 Dec, [facility] [place] [facility] [address] [id number] [place] [address]- 0918 Dec, [facility] [place] [facility] [address] [id number] [place] [address]- 6229 Dec, [facility] [place] [facility] [address] [id number] [place] [address]- 0671 Dec, [facility] [place] [facility] [address] [id number] [place] [address]- 5730 Dec, [facility] [place] [facility] [address] [id number] [place] [address]- 5854 Dec, [facility] [place] [facility] [address] [id number] [place] [address]- 7607 Dec, [facility] [place] [facility] [address] [id number] [place] [address]- 5723 Dec, [facility] [place] [facility] [address] [id number] [place] [address]- 2628 Dec, [facility] [place] [facility] [address] [id number] [place] [address]- 3816 Nov, [facility] [place] [facility] [address] [id number] [place] [address]- 5585 Nov, [facility] [place] [facility] [address] [id number] [place] [address]- 1060 September, [facility] [place] [facility] [address] [id number] [place] [address]- 1335 September, [facility] [place] [facility] [address] [id number] [place] [address]- 9653 September, [facility] [place] [facility] [address] [id number] [place] [address]- 1231 September, [facility] [place] [facility] [address] [id number] [place] [address]- 0350 Aug, [facility] [place] [facility] [address] [id number] [place] [address]- 2170 Aug, [facility] [place] [facility] [address] [id number] [place] [address]- 4441 Aug, [facility] [place] [facility] [address] [id number] [place] [address]- 3843 Aug, [facility] [place] [facility] [address] [id number] [place] [address]- 8961 Aug, [facility] [place] [facility] [address] [id number] [place] [address]- 5929 Aug, [facility] [place] [facility] [address] [id number] [place] [address]- 2058 Aug, [facility] [place] [facility] [address] [id number] [place] [address]- 3438 08 Aug, 2013 [facility] [place] [facility] [address] [id number] [place] [address]- 3277 Aug, [facility] [place] [facility] [address] [id number] [place] [address]- 3209 Aug, [facility] [place] [facility] [address] [id number] [place] [address]- 4484 Aug, [facility] [place] [facility] [address] [id number] [place] [address]- 6388 Aug, [facility] [place] [facility] [address] [id number] [place] [address]- 3182 Jul, [facility] [place] [facility] [address] [id number] [place] [address]- 8609 Jul, [facility] [place] [facility] [address] [id number] [place] [address]- 5894 Jul, [facility] [place] [facility] [address] [id number] [place] [address]- 4394 Jul, [facility] [place] [facility] [address] [id number] [place] [address]- 3887 Jul, [facility] [place] [facility] [address] [id number] [place] [address]- 9258 Jul, [facility] [place] [facility] [address] [id number], [place] [address]- 5802 Jul, [facility] [place] [facility] [address] [id number] [place] [address]- 4525 Jul, [facility] [place] [facility] [address] [id number] [place] [address]- 4806 Jul, [facility] [place] [facility] [address] [id number] [place] [address]- 1116 Jul, [facility] [place] [facility] [address] [id number] [place] [address]- 3995 Jun, [facility] [place] [facility] [address] [id number] [place] [address]- 4196 Jun, [facility] [place] [facility] [address] [id number] [place] [address]- 9396 Jun, [facility] [place] [facility] [address] [id number] [place] [address]- 3406 Jun, [facility] [place] [facility] [address] [id number] [place] [address]- 3947 Jun, [facility] [place] [facility] [address] [id number] [place] [address]- 5546 Jun, [facility] [place] [facility] [address] [id number] [place] [address]- 6832 Jun, [facility] [place] [facility] [address] [id number] [place] [address]- 5798 Jun, [facility] [place] [facility] [address] [id number] [place] [address]- 5303 Jun, [facility] [place] [facility] [address] [id number] [place] [address]- 4196 Jun, [facility] [place] [facility] [address] [facility] [id number] [place] [address]- 3762 Jun, [facility] [place] [facility] [address] [facility] [id number] [place] [address]- 7538 Jun, [facility] [place] [facility] [address] [id number] [place] [address]- 5330 May, [facility] [place] [facility] [address] [id number] [place] [address]- 0659 May, [facility] [place] [facility] [address] [id number] [place] [address] May, [facility] [place] [facility] [address] [id number] [place] [address] May, [facility] [place] [facility] [address] [id number] [place] [address] May, [facility] [place] [facility] [address] [id number] [place] [address] May, [facility] [place] [facility] [address] [facility] [id number] [place] [address] May, [facility] [place] [facility] [address] [id number] [place] [address] May, [facility] [place] [facility] [address] [id number] [place] [address] May, [facility] [place] [facility] [address] [id number] [place] [address] May, [facility] [place] [facility] [address] [id number] [place] [address] May, [facility] [place] [facility] [address] [id number] [place] [address] May, [facility] [place] [facility] [address] [id number] [place] [address] May, [facility] [place] [facility] [address] [id number] [place] [address] May, [facility] [place] [facility] [address] [id number], [place] [address] May, [facility] [place] [facility] [address] [id number], [place] [address] Apr, [facility] [place] [facility] [address] [id number] [place] [address] Apr, [facility] [place] [facility] [address] [id number] [place] [address] Apr, [facility] [place] [facility] [address] [id number] [place] [address] Apr, [facility] [place] [facility] [address] [id number] [place] [address] Mar, [facility] [address] [id number] [place] [address] Mar, [facility] [address] [id number] [place] [address] Mar, [facility] [address] [id number] [place] [address] Mar, [facility] [place] [facility] [address] [id number] [place] [address]- [address] Mar, [facility] [address] [id number] [place] [address] Mar, [facility] [address] [id number] [place] [address] Mar, [facility] [address] [id number] [place] [address] Mar, [facility] [address] [id number] [place] [address] Mar, [facility] [place] [facility] [address] [id number] [place] [address] Mar, [facility] [address] [id number] [place] [address]- [address] Mar, [facility] [place] [facility] [address] [id number] [place] [address] Mar, [facility] [place] [facility] [address] [id number] [place] [address] 03 Feb, 2013 [facility] [place] [facility] [address] [id number] [place] [address] 18 Sep2012 [facility] [place] [facility] [address] [id number] [place] [address] 17 Sep2012 [facility] [place] [facility] [address] [id number] [place] [address] Jan, [facility] [place] [facility] [address] [id number] [place] [address] 04 Jan, 2013 [facility] [place] [facility] [address] [id number] [place] [address] Jan, [facility] [place] [facility] [address] [id number] [place] [address] Dec, [facility] [place] [facility] [address] [id number] [place] [address] Dec, [facility] [place] [facility] [address] [id number] [place] [address] Dec, [facility] [place] [facility] [address] [id number] [place] [address] Dec, [facility] [place] [facility] [address] [id number] [place] [address] Dec, [facility] [place] [facility] [address] [id number] [place] [address] Dec, [facility] [place] [facility] [address] [id number] [place] [address] Dec, [facility] [place] [facility] [address] [id number] [place] [address] Dec, [facility] [place] [facility] [address] [id number] [place] [address] Nov, [facility] [place] [facility] [address] [id number] [place] [address] Nov, [facility] [place] [facility] [address] [id number] [place] [address] Nov, [facility] [place] [facility] [address] [id number] [place] [address] Nov, [facility] [place] [facility] [address] [id number] [place] [address] Nov, [facility] [place] [facility] [address] [id number], [place] [address] Nov, [facility] [place] [facility] [address] [id number] [place] [address] Oct, [facility] [address] [id number] [place] [id number] Oct, [facility] [address] [id number] [place] [id number] Oct, [facility] [address] [id number] [place] [id number] Oct, [facility] [address] [id number] [place] [id number] Oct, [facility] [place] [facility] [address] [id number] [place] [address] Oct, [facility] [place] [facility] [address] [facility] [id number] [place] [address] Oct, [facility] [place] [facility] [address] [id number] [address] Oct, [facility] [place] [facility] [address] [facility] [id number] [place] [address] Oct, [facility] [place] [facility] [address] [id number] [address] Oct, [facility] [place] [facility] [address] [id number] [address] Oct, [facility] [place] [facility] [address] [facility] [id number] [place] [address] September, [facility] [place] [facility] [address] [id number] [place] [address] Aug, [facility] [place] [facility] [address] [id number] [place] [address] Aug, [facility] [place] [facility] [address] [facility] [id number] [place] [address] Aug, [facility] [place] [facility] [address] [facility] [id number] [place] [address] Aug, [facility] [address] [id number] [place] [address] Jul, [facility] [place] [facility] [address] [id number] [place] [address] Jul, [facility] [place] [facility] [address] [id number] [place] [address] Jul, [facility] [place] [facility] [address] [id number] [place] [address] Jul, [facility] [place] [facility] [address] [id number] [place] [address] Jul, [facility] [place] [facility] [address] [id number] [place] [address] Jun, [facility] [place] [facility] [address] [id number] [place] [address] Jun, [facility] [place] [facility] [address] [id number] [place] [address] Jun, [facility] [place] [facility] [address] [id number] [place] [address] May, [facility] [place] [facility] [address] [id number] [place] [address] May, [facility] [place] [facility] [address] [id number] [place] [address] May, [facility] [place] [facility] [address] [id number], [place] [address] May, [facility] [place] [facility] [address] [id number] [place] [address] May, [facility] [place] [facility] [address] [id number] [place] [address] May, [facility] [place] [facility] [address] [id number] [place] [address] Apr, [facility] [place] [facility] [address] [id number] [place] [address] 18 Apr, 2012 [facility] [place] [facility] [address] [id number] [place] [address] Apr, [facility] [place] [facility] [address] [id number] [place] [address] Apr, [facility] [place] [facility] [address] [id number] [place] [address] Apr, [facility] [place] [facility] [address] [id number] [place] [address] Apr, [facility] [place] [facility] [address] [id number] [place] [address] Apr, [facility] [place] [facility] [address] [id number] [place] [address] Mar, [facility] [place] [facility] [address] [id number] [place] [address] Mar, [facility] [place] [facility] [address] [id number] [place] [address] Mar, [facility] [place] [facility] [address] [id number] [place] [address] Mar, [facility] [place] [facility] [address] [id number] [place] [address] 18 Jan, 2012 [facility] [place] [facility] [address] [id number] [place] [address] 10 Jan, 2012 [facility] [place] [facility] [address] [id number], [place] [address] Jan, [facility] [place] [facility] [address] [id number] [place] [address] Jan, [facility] [place] [address] [id number] [place] [id number] Dec, [facility] [place] [facility] [address] [id number] [place] [address] Dec, [facility] [address] [facility] [id number] [place] [id number] Dec, [facility] [address] [facility] [id number], [place] [address] Dec, [facility] [address] [id number] [address] Dec, [facility] [address] [id number], [place] [address] Dec, [facility] [id number], [place] [address] Nov, [facility] [id number], [place] [address] Nov, [facility] [address] [id number] [address] Nov, IMMUNIZATIONS No Known Immunizations SOCIAL HISTORY Never Assessed REASON FOR VISIT PLAN OF CARE VITAL SIGNS MEDICATIONS Unknown [...] History Stent placed 08/19/2017 Hospitalization History Syncope- [facility] 12/2017
--- OUTSIDE RECORDS SUMMARY | 2018-07-26 22:01 | XMS REPORT ---
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 Name Role Phone SAVANNAH FERREIRA Unavailable PROBLEMS Type Condition ICD9-CM Code PIG63-RN Code Onset Dates Condition Status SNOMED Code Problem Personal history of pulmonary embolism Z86.711 Active 726796115 Problem Morbid obesity with BMI of 50.0-59.9, adult Z68.43 Active 172032252 Problem Gastroesophageal reflux disease without esophagitis K21.9 Active 976800443 Problem Type 2 diabetes mellitus with diabetic neuropathic arthropathy, 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 Active 672727046 Problem Arthritis M19.90 Active 2441141 Problem Migraine with aura and without status migrainosus, not intractable G43.109 Active 9429979 Problem Hyperlipidemia LDL goal <70 E78.5 Active 71491100 Problem Acute gout involving toe of right foot, 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 Active 431389757 Problem Hypothyroidism E03.9 Active 00046658 Problem Coronary artery disease I25.10 Active 56576898 Problem Renal stones N20.0 Active 97520798 ALLERGIES Substance Reaction Event Type Date Status Phenergan hallucinations Drug Allergy Dec, Active Nexium anaphylaxis Drug Allergy Dec, Active Methylprednisolone nausea and vomiting Drug Allergy Dec, Active Levothyroxine Sodium rash Drug Allergy Dec, Active Honey Bee Venom Unknown Drug Allergy Dec, Active Dexamethasone nausea and vomiting Drug Allergy Dec, Active Azithromycin hives Drug Allergy Dec, Active Amoxicillin hives Drug Allergy Dec, Active Adhesive Unknown Non Drug Allergy Dec, Active Tape Unknown Non Drug Allergy Dec, Active ENCOUNTERS Encounter Location Date Diagnosis [facility] [address] [facility] [id number] [address] Jan, [facility] [id number] [place] [address] 26549- 7132 07 Jan, 2018 Acute non-recurrent maxillary sinusitis J01.00 and BMI 50.0- 59.9, adult Z68.43 [place] [address] [id number] [place] [address] 05263 -1011 04 Jan, 2018 Congestion of upper respiratory tract J98.8 and BMI 50.0- 59.9, adult Z68.43 [place] [address] 49242- 9655 Dec, Type 2 diabetes mellitus with diabetic neuropathic arthropathy, 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 ; Morbid obesity with BMI of 50.0-59.9, adult Z68.43 ; Hypothyroidism E03.9 ; Coronary artery disease I25.10 ; Hyperlipidemia LDL goal <70 E78.5 ; Right lower quadrant abdominal pain R10.31 and Acute cystitis with hematuria N30.01 [place] [id number] [place] [address] 79013 -6371 Dec, Migraine with aura and without status migrainosus, not intractable G43.109 ; Dehydration symptoms R63.8 and BMI 50.0-59.9, adult Z68.43 [place] [address] [id number] [place] [address] 97116- 6507 Oct, [place] [address] [address] [id number] [place] [address] 99242- 0562 Oct, [place] [address] [address] [id number] [place] [address] 02198- 3813 Oct, [place] [address] [address]31- 2759 September, [place] [address] 18097- 6506 September, Type 2 diabetes mellitus with diabetic neuropathic arthropathy, 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 ; Hyperlipidemia, unspecified hyperlipidemia type E78.5 ; Personal history of pulmonary embolism Z86.711 ; Coronary artery disease I25.10 and Hypothyroidism E03.9 [facility] [id number] [place] [address] 04455- 1317 September, [place] [address] 20294- 6325 Aug, Type 2 diabetes mellitus with diabetic [...] without aura and with status migrainosus G43.011 [place] [id number] [place] [address] 58089- 4002 Aug, [place] [address] 48326- 9129 Aug, [place] [address] 91537- 0446 Jul, Renal stones N20.0 [facility] IN [facility] [id number] [place] [address] 67813 -6566 Jun, Back pain M54.9 ; Kidney stones N20.0 and BMI 50.0-59.9, adult Z68.43 [place] [id number] [place] [address] 38302- 6879 Jun, [place] [id number] [place] [address] 00055- 5324 Apr, [place] [address] 51912- 1428 Apr, [place] [address] 82684- 4868 Apr, Right foot pain M79.671 ; Acute gout involving toe of right foot, 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 and Arthritis M19.90 [place] [id number] [place] [address] 86557- 1704 06 Apr, 2017 Gastroesophageal reflux disease without esophagitis K21.9 [place] [id number] [place] [address] 67187- 7064 16 Mar, 2017 Hypothyroidism, unspecified E03.9 [place] [address] 49730- 5957 11 Feb, 2017 [place] [address] 19159- 8462 25 Jan, 2017 Cervicalgia of wzluokat-wsgzgwe-herhl region M54.2 and Persistent headaches R51 [place] [address] 86091- 3525 20 Jan, 2017 [place] [address] 32024- 6531 12 Jan, 2017 Intractable migraine without aura and with status migrainosus G43.011 ; Cervical spine pain M54.2 ; Hyperlipidemia, unspecified hyperlipidemia type E78.5 ; Hypothyroidism E03.9 and Metabolic syndrome E88.81 [place] [address] 08061- 3088 Jan, Hypothyroidism, unspecified E03.9 [place] [id number] [place] [address] 14403- 8007 Dec, Hypothyroidism, unspecified E03.9 [place] [address] 27690- 3137 Dec, Hypothyroidism E03.9 [place] [address] 89449- 0912 Nov, Laceration of left great toe w/o foreign body w/o damage to nail, initial encounter S91.112A [facility] [id number] [place] [address] 52424 -3788 Oct, Pain in left knee M25.562 and Arthritis M19.90 [facility] [id number] [place] [address] 20601- 6058 Oct, Hypothyroidism, unspecified E03.9 and Hyperlipidemia, unspecified hyperlipidemia type E78.5 [place] [id number] [place] [address] 00060- 7174 Oct, Gastroesophageal reflux disease without esophagitis K21.9 [facility] [id number] [place] [address] 47591- 9933 14 Oct, 2016 Metabolic syndrome E88.81 ; Personal history of pulmonary embolism Z86.711 ; Other specified hypothyroidism E03.8 and Hyperlipidemia, unspecified hyperlipidemia type E78.5 [place] [id number] [place] [address] 03441- 4435 13 Oct, 2016 Personal history of pulmonary embolism Z86.711 ; Dysuria R30.0 ; Metabolic syndrome E88.81 ; Other specified hypothyroidism E03.8 ; Hyperlipidemia, unspecified hyperlipidemia type E78.5 and Morbid obesity with BMI of 50.0-59.9, adult Z68.43 [place] [id number] [place] [address] 79849- 3618 September, [facility] IN [facility] [id number] [place] [address] 37942 -0201 September, Wrist pain, left M25.532 and Acute pain of left knee M25.562 [place] [id number] [place] [address] 76976- 8176 Jul, Dysuria R30.0 [facility] [address] [id number] [place] [address] 09509- 0354 Jul, Dysuria R30.0 [place] [address] 15020- 7032 16 Jul, 2016 Left lower quadrant pain R10.32 [place] [id number] [place] [address] 48422- 2061 14 Jul, 2016 [place] [id number] [place] [address] 13099- 0684 09 Jul, 2016 Coronary artery disease I25.10 ; Family history of diabetes mellitus Z83.3 ; Morbid obesity with BMI of 50.0-59.9, adult Z68.43 ; Metabolic syndrome E88.81 ; Personal history of pulmonary embolism Z86.711 ; Gastroesophageal reflux disease without esophagitis K21.9 ; Hypothyroidism, unspecified E03.9 ; Hyperlipidemia, unspecified hyperlipidemia type E78.5 and Left lower quadrant pain R10.32 [facility] [place] [id number] [place] [address] 81646 -0807 09 Jul, 2016 [facility] [address] 99664 -9772 08 Jul, 2016 Morbid obesity with BMI of 50.0-59.9, adult Z68.43 [facility] IN [place] [id number] [place] [address] 21383 -2266 07 Jul, 2016 Generalized abdominal pain R10.84 [facility] [place] [id number] [place] [address] 67429 -6144 02 Jun, 2016 Muscle strain of right upper back, initial encounter S29.012A [facility] [place] [id number] [place] [address] 15449 -8000 May, Foreign body (FB) in soft tissue M79.5 [place] [id number] [place] [address] 22476- 8855 Mar, Hypothyroidism, unspecified E03.9 and Arthritis M19.90 [place] [id number] [place] [address] 80038- 7440 13 Feb, 2016 Coronary artery disease I25.10 ; Morbid obesity with BMI of 50.0-59.9, adult Z68.43 ; Metabolic syndrome E88.81 ; Gastroesophageal reflux disease without esophagitis K21.9 ; Hypothyroidism, unspecified E03.9 ; Personal history of pulmonary embolism Z86.711 and Hyperlipidemia, unspecified hyperlipidemia type E78.5 [address] [address] Feb, [facility] [id number] [place] [address] 65202 -6829 Jan, Acute right-sided thoracic back pain M54.6 [place] [address], [place] [address] 0523 Jan, Acute pain of left knee M25.562 [place] [address] [place] [address] [id number] [place] [address] 09974- 4371 Dec, Dysuria R30.0 ; Metabolic syndrome E88.81 ; Acute pain of left knee M25.562 ; Acute cystitis with hematuria N30.01 and Acute left eye pain H57.12 [place] [address] [place] [address] 22759- 2987 Dec, [place] [address] [place] [id number] [place] [address] 49398- 0433 Dec, [place] [address] [place] [address] [id number] [place] [address] 70231- 0697 Dec, Hypothyroidism, unspecified E03.9 [place] [address] [place] [address] 44617- 8525 Dec, [place] [address] [place] [address] 21131- 6483 Nov, Peripheral edema R60.9 and Acute pain of left knee M25.[address] [facility] [address] [address] September, [place] [address] [place] [id number] [place] [address] 81557- 2288 September, Metabolic syndrome E88.81 and Allergy, subsequent encounter T78.40XD [facility] [address], [place] [address] September, Muscle strain T14.8 [place] [address] 98609- 8264 Aug, Chest pressure R07.89 ; Metabolic syndrome E88.81 ; Morbid obesity with BMI of 50.0-59.9, adult Z68.43 ; Esophageal reflux 530.81 and Shortness of breath R06.02 [place] [address] 95775- 4814 Aug, [place] [address] 08387- 6950 Aug, [place] [address] 19894- 1159 Aug, Hypothyroidism, unspecified E03.9 [place] [address] 57478- 1934 Aug, Routine health maintenance Z00.00 [facility] IN [address] 29419 -7349 Aug, [place] [address] 96020- 1762 Jul, Routine health maintenance Z00.00 ; Family history of diabetes mellitus Z83.3 ; Family history of cancer Z80.9 and Morbid obesity with BMI of 50.0-59.9, adult Z68.43 [facility] IN [address] 30914 -5237 Jul, 2016 Allergic rhinitis J30.9 and Postnasal drip R09.[address] 21717- 9444 18 Jul, 2015 Influenza J11.1 [facility] IN [address] 36303 -2014 08 Jul, 2016 Dysuria R30.[address] 98518- 2116 Apr, [address] 82035- 6259 Mar, Acute upper respiratory infection, unspecified J06.9 and Hypothyroidism E03.9 [facility] [address] [address] [id number] [address] 0320 Mar, [facility] [address] [facility] [id number], [place] [address] 3259 Feb, Coronary artery disease I25.10 [facility] [address] [place] [id number] [place] [address] 12496- 5078 Feb, Left foot pain M79.672 [facility] [address] [facility] [id number], [place] [address] Jan, UTI (urinary tract infection) 599.0 [facility] [address] [place] [id number] [place] [address] 43040- 5569 Jan, Urinary tract infection, site not specified 599.0 [facility] [address] [place] [id number] [place] [address] 47596- 1508 Jan, Urinary tract infection, site not specified 599.0 [facility] [address] [facility] [id number], [place] [address]- 8986 Jan, [facility] [address] [facility] [id number], [place] [address]- 9120 Dec, Headache 784.0 [facility] [address] [address] [id number] [address]- 8091 Dec, Urinary tract infection, site not specified 599.0 [facility] [address] [facility] [id number], [place] [address]- 7155 Dec, Urinary tract infection, site not specified 599.0 [facility] [address] [facility] [id number], [place] [address]- 3477 Dec, Urinary tract infection, site not specified 599.0 [facility] [address] [id number], [place] [address]- 5564 22 Kavon, 2015 Unspecified sleep apnea 780.57 ; Encounter for long-term ( current) use of anticoagulants V58.61 ; Routine general medical examination at health care facility V70.0 and Arthritis of both knees 716.96 [facility] [address] [id number] [place] [address] 77997- 3646 September, Cat bite of hand 882.0 and Rectal bleeding 569.3 [facility] [address] [place] [address] [id number] [place] [address] 09814- 6074 Aug, [facility] [id number] [place] [address] 87405- 6672 Aug, [facility] [id number] [place] [address] 33948- 2452 Jul, [facility] [id number] [place] [address] 69299589- 3892 Jul, [facility] [id number] [place] [address] 13671830- 2326 Jul, [facility] [id number] [place] [address] 40140- 1839 Jul, [facility] [id number] [place] [address] [id number]- 4039 Jul, [facility] [address] [id number] [address] 2856 Jul, [facility] [id number] [place] [address] 43047- 8419 Jul, [facility] [address], [place] [address]- 2275 Jul, [facility] [id number] [place] [address] 68865- 2978 May, [facility] [address] [id number] [address]- 0666 May, [facility] [address] [id number] [place] [address] [id number]- 7460 May, [facility] [place] [facility] [address] [id number] [place] [address]- 8639 May, [facility] [place] [facility] [address] [id number] [place] [address]- 6565 May, [facility] [place] [facility] [address] [id number] [place] [address]- 4395 May, [facility] [place] [facility] [address] [id number] [place] [address]- 7184 May, [facility] [place] [facility] [address] [id number] [place] [address]- 1561 Mar, [facility] [place] [facility] [address] [id number] [place] [address]- 4208 Mar, [facility] [place] [facility] [address] [id number] [place] [address]- 9175 08 Jan, 2014 [facility] [place] [facility] [address] [id number] [place] [address]- 1342 08 Jan, 2013 [facility] [place] [facility] [address] [id number] [place] [address]- 6744 08 Jan, 2013 [facility] [place] [facility] [address] [id number] [place] [address]- 4416 08 Jan, 2013 [facility] [place] [facility] [address] [id number] [place] [address]- 5407 05 Jan, 2013 [facility] [place] [facility] [address] [id number] [place] [address]- 4377 05 Jan, 2013 [facility] [place] [facility] [address] [id number] [place] [address]- 1290 Dec, [facility] [place] [facility] [address] [id number] [place] [address]- 9423 Dec, [facility] [place] [facility] [address] [id number] [place] [address]- 4113 Dec, [facility] [place] [facility] [address] [id number] [place] [address]- 8418 Dec, [facility] [place] [facility] [address] [id number] [place] [address]- 8406 Dec, [facility] [place] [facility] [address] [id number] [place] [address]- 2171 Dec, [facility] [place] [facility] [address] [id number] [place] [address]- 4453 Dec, [facility] [place] [facility] [address] [id number] [place] [address]- 2142 Dec, [facility] [place] [facility] [address] [id number] [place] [address]- 3077 Dec, [facility] [place] [facility] [address] [id number] [place] [address]- 3023 Dec, [facility] [place] [facility] [address] [id number] [place] [address]- 6926 Nov, [facility] [place] [facility] [address] [id number] [place] [address]- 6681 Nov, [facility] [place] [facility] [address] [id number] [place] [address]- 0649 September, [facility] [place] [facility] [address] [id number] [place] [address]- 8850 September, [facility] [place] [facility] [address] [id number] [place] [address]- 8177 September, [facility] [place] [facility] [address] [id number] [place] [address]- 6975 September, [facility] [place] [facility] [address] [id number] [place] [address]- 3901 Aug, [facility] [place] [facility] [address] [id number] [place] [address]- 4251 Aug, [facility] [place] [facility] [address] [id number] [place] [address]- 5062 Aug, [facility] [place] [facility] [address] [id number] [place] [address]- 8413 Aug, [facility] [place] [facility] [address] [id number] [place] [address]- 0776 Aug, [facility] [place] [facility] [address] [id number] [place] [address]- 1386 Aug, [facility] [place] [facility] [address] [id number] [place] [address]- 0796 Aug, [facility] [place] [facility] [address] [id number] [place] [address]- 0653 Aug, [facility] [place] [facility] [address] [id number] [place] [address]- 5926 Aug, [facility] [place] [facility] [address] [id number] [place] [address]- 7338 Aug, [facility] [place] [facility] [address] [id number] [place] [address]- 8478 Aug, [facility] [place] [facility] [address] [id number] [place] [address]- 3523 Aug, [facility] [place] [facility] [address] [id number] [place] [address]- 4779 Jul, [facility] [place] [facility] [address] [id number] [place] [address]- 4410 Jul, [facility] [place] [facility] [address] [id number] [place] [address]- 1612 Jul, [facility] [place] [facility] [address] [id number] [place] [address]- 3356 Jul, [facility] [place] [facility] [address] [id number] [place] [address]- 3236 06 Jul, 2013 [facility] [place] [facility] [address] [id number] [place] [address]- 2536 06 Jul, 2013 [facility] [place] [facility] [address] [id number] [place] [address]- 2860 Jul, [facility] [place] [facility] [address] [id number] [place] [address]- 5204 Jul, [facility] [place] [facility] [address] [id number] [place] [address]- 7680 Jul, [facility] [place] [facility] [address] [facility] [id number] [place] [address]- 7311 Jul, [facility] [place] [facility] [address] [id number] [place] [address]- 6892 Jun, [facility] [place] [facility] [address] [id number] [place] [address]- 5452 Jun, [facility] [place] [facility] [address] [facility] [id number] [place] [address]- 2360 Jun, [facility] [place] [facility] [address] [facility] [id number] [place] [address] Jun, [facility] [place] [facility] [address] [facility] [id number] [place] [address] Jun, [facility] [place] [facility] [address] [facility] [id number] [place] [address] Jun, [facility] [place] [facility] [address] [facility] [id number] [place] [address] Jun, [facility] [place] [facility] [address] [facility] [id number] [place] [address] Jun, 2013 [facility] [place] [facility] [address] [facility] [id number] [address] Jun, [facility] [place] [facility] [address] [id number] [place] [address] Jun, [facility] [place] [facility] [address] [facility] [id number], [place] [address] Jun, [facility] [place] [facility] [address] [facility] [id number], [place] [address] Jun, [facility] [place] [facility] [address] [id number] [place] [address] May, [facility] [place] [facility] [address] [id number] [place] [address] May, [facility] [place] [facility] [address] [id number] [place] [address] May, [facility] [place] [facility] [address] [id number] [place] [address]- [address] May, [facility] [address] [id number] [place] [address] May, [facility] [place] [facility] [address] [id number] [place] [address]- 7969 May, [facility] [place] [facility] [address] [id number] [place] [address] May, [facility] [address] [id number] [place] [address]- [address] May, [facility] [place] [facility] [address] [id number] [place] [address] May, [facility] [place] [facility] [address] [id number] [place] [address] May, [facility] [place] [facility] [address] [id number] [place] [address] May, [facility] [place] [facility] [address] [id number], [place] [address] May, [facility] [place] [facility] [address] [id number] [place] [address]- [address] May, [facility] [place] [facility] [address] [id number] [place] [address]- [address] May, [facility] [place] [facility] [address] [id number] [place] [address] May, [facility] [place] [facility] [address] [id number], [place] [address] Apr, [facility] [place] [facility] [address] [id number] [place] [address] Apr, [facility] [place] [facility] [address] [id number], [place] [address] Apr, [facility] [place] [facility] [address] [id number] [place] [address]- [address] Apr, [facility] [place] [facility] [address] [id number] [place] [address] Mar, [facility] [place] [facility] [address] [id number] [place] [address] Mar, [facility] [place] [facility] [address] [id number] [place] [address]- [address] Mar, [facility] [place] [facility] [address] [id number] [place] [address] Mar, [facility] [place] [facility] [address] [id number], [place] [address] Mar, [facility] [place] [facility] [address] [id number], [place] [address] Mar, [facility] [place] [facility] [address] [id number] [address] Mar, [facility] [place] [facility] [address] [id number], [place] [address] Mar, [facility] [place] [facility] [address] [id number], [place] [address] Mar, [facility] [place] [facility] [address] [id number], [place] [address] Mar, [facility] [place] [facility] [address] [id number], [place] [address] Mar, [facility] [place] [facility] [address] [id number], [place] [address] Mar, [facility] [place] [facility] [address] [id number] [place] [address] 03 Feb, 2013 [facility] [address] [id number] [place] [address] 18 Jan, 2012 [facility] [place] [facility] [address] [id number] [place] [address] 17 Jan, 2012 [facility] [address] [id number] [place] [address] 06 Jan, 2012 [facility] [place] [facility] [address] [id number] [place] [address] 04 Jan, 2012 [facility] [address] [id number] [place] [address] Jan, [facility] [place] [facility] [address] [id number] [place] [address] Dec, [facility] [place] [facility] [address] [id number] [place] [address] Dec, [facility] [address] [id number] [place] [address] Dec, [facility] [place] [facility] [address] [id number] [place] [address] Dec, [facility] [address] [id number] [place] [address] Dec, [facility] [place] [facility] [address] [id number] [place] [address] Dec, [facility] [place] [facility] [address] [id number] [place] [address] Dec, [facility] [place] [facility] [address] [id number] [place] [address] Dec, [facility] [place] [facility] [address] [id number] [place] [address] Nov, [facility] [place] [facility] [address] [id number] [place] [address] Nov, [facility] [place] [facility] [address] [id number] [place] [address] Nov, [facility] [place] [facility] [address] [id number] [place] [address]- [address]69 Nov, [facility] [place] [facility] [address] [id number] [place] [address] Nov, [facility] [place] [facility] [address] [id number] [place] [address] Nov, [facility] [address] [id number] [place] [address] Oct, [facility] [address] [id number] [place] [id number] Oct, [facility] [address] [id number] [place] [id number] Oct, [facility] [address] [id number] [place] [id number] Oct, [facility] [address] [id number] [place] [id number] Oct, [facility] [place] [facility] [address] [facility] [id number] [place] [address] Oct, [facility] [place] [facility] [address] [facility] [id number] [place] [address] Oct, [facility] [place] [facility] [address] [id number] [place] [address] Oct, [facility] [place] [facility] [address] [id number] [place] [address]703 Oct, [facility] [place] [facility] [address] [facility] [id number] [place] [address] Oct, [facility] [place] [facility] [address] [facility] [id number] [place] [address] Oct, [facility] [place] [facility] [address] [facility] [id number] [place] [address] September, [facility] [place] [facility] [address] [id number] [place] [address]- [address] 23 Aug, 2012 [facility] [address] [id number] [place] [address] Aug, [facility] [place] [facility] [address] [id number] [place] [address] Aug, [facility] [address] [id number] [place] [address] Aug, [facility] [place] [facility] [address] [id number] [place] [address]- [address] 24 Jul, 2012 [facility] [place] [facility] [address] [id number] [place] [address] Jul, [facility] [address] [id number] [place] [address] Jul, [facility] [address] [id number] [place] [address] 4044 Jul, [facility] [address] [id number] [place] [address]- [address]783 Jul, [facility] [address] [id number] [place] [address] Jun, [facility] [place] [facility] [address] [id number] [place] [address] Jun, [facility] [place] [facility] [address] [id number] [place] [address] Jun, [facility] [place] [facility] [address] [id number] [place] [address] May, [facility] [place] [facility] [address] [id number] [place] [address]- 5651 24 May, 2012 [facility] [place] [facility] [address] [id number] [place] [address] 14 May, 2012 [facility] [place] [facility] [address] [id number] [place] [address] 9242 May, [facility] [place] [facility] [address] [id number] [place] [address] May, [facility] [place] [facility] [address] [id number] [place] [address] May, [facility] [place] [facility] [address] [id number] [place] [address] 18 Apr, 2012 [facility] [place] [facility] [address] [id number] [place] [address]- 0973 18 Apr, 2012 [facility] [place] [facility] [address] [id number] [place] [address]- 1523 13 Apr, 2012 [facility] [place] [facility] [address] [id number] [place] [address]489 13 Apr, 2012 [facility] [place] [facility] [address] [id number] [place] [address] 44[address] Apr, [facility] [place] [facility] [address] [id number] [place] [address] 5677 Apr, [facility] [place] [facility] [address] [id number] [place] [address] 5936 Apr, [facility] [place] [facility] [address] [id number] [place] [address] 1516 Mar, [facility] [place] [facility] [address] [id number] [place] [address] 6856 Mar, [facility] [place] [facility] [address] [id number] [place] [address]- 0969 Mar, [facility] [place] [facility] [address] [id number] [place] [address]- 8764 Mar, [facility] [place] [facility] [address] [id number] [place] [address] 18 Jan, 2012 [facility] [place] [facility] [address] [id number] [place] [address] 10 Jan, 2012 [facility] [place] [facility] [address] [id number], [place] [address] Jan, [facility] [id number], [place] [address] Jan, [facility] [id number] [id number] Dec, [facility] [id number], [place] [address] Dec, [facility] [id number] [id number] Dec, [facility] [id number] [place] [address]- [address] Dec, [facility] [id number] [place] [address]- [address] Dec, [facility] [id number] [place] [address]- [address]702 Dec, [facility] [address] [id number] [address] Nov, [facility] [id number] [place] [address]- [address] Nov, [facility] [id number] [id number] Nov, IMMUNIZATIONS No Known Immunizations SOCIAL HISTORY Never Assessed REASON FOR VISIT headache/dizziness/weakness x 4 days. The patient is also having trouble sleeping.--NILESH Black PLAN OF CARE Activity Details Follow Up prn Reason: VITAL SIGNS Height 64 in 2017-12-14 Weight 298 lbs 2017-12-14 Temperature 97.2 degrees Fahrenheit 2017-12-14 Heart Rate 60 bpm 2017-12-14 Respiratory Rate 20 2017-12-14 BMI 51.15 kg/m2 2017-12-14 Blood pressure systolic 120 mmHg 2017-12-14 Blood pressure diastolic 74 mmHg 2017-12-14 MEDICATIONS Medication Instructions Dosage Frequency Start Date End Date Duration Status Tylenol Extra Strength 500 MG Nov, Active Topamax 100 MG Orally Twice a day 1 tablet 12h Active Albuterol Sulfate 90 mcg/actuation Inhalation every 4 hrs inhale 1 puff by inhalation route every 4 hours as needed 4h 28 Jun, 2013 30 days Active Tramadol HCl 50 MG Orally every 6 hrs 1 tablet as needed 6h Active Warfarin Sodium 5 mg Orally 5x weekly 1 tablet Active Aspirin Adult Low Dose 81 MG Orally Once a day 1 tablet 24h Active Levothyroxine Sodium 150 MCG TAKE ONE TABLET BY MOUTH ONCE DAILY IN THE MORNING ON AN EMPTY STOMACH 30 Active Glucometer glucometer ICD10- E11.9 fasting and 2 hours after one meal daily 3 times weekly. test blood sugar Aug, Active Plavix 75 MG Orally Once a day 1 tablet 24h Active Warfarin Sodium 7.5 MG Orally 2x weekly 1 tablet Active Pravastatin Sodium 20 MG Orally Once a day 1 tablet 24h Active Test strips Test Strips ICD10- E11.9 fasting and 2 hours after one meal daily 2 times weekly. test blood sugar Aug, Active Albuterol Sulfate 2.5 mg /3 mL (0.083 %) 1 Each by Inhalation route every 4 hours for cough and wheezePRNfor wheezing or cough Nov, Active Nitroglycerin 0.4 MG/HR Transdermal Once a day 1 patch to skin remove after 12 hours 24h Active Omeprazole 20 MG TAKE ONE CAPSULE BY MOUTH ONCE DAILY 30 Active RESULTS No Results PROCEDURES Procedure Date Ordered Result Body Site [facility] VISIT ESTABLISHED PATIENT Dec 14, 2017 INSTRUCTIONS MEDICATIONS ADMINISTERED No Known Medications [...]
--- OUTSIDE RECORDS SUMMARY | 2018-07-26 22:01 | XMS REPORT ---
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 Active 509940421 Problem Arthritis M19.90 Active 7340631 Problem Migraine with aura and without status migrainosus, not intractable G43.109 Active 5471471 Problem Hyperlipidemia LDL goal <70 E78.5 Active 43618983 Problem Acute gout involving toe of right foot, 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 Active 740426269 Problem Hypothyroidism E03.9 Active 79118831 Problem Coronary artery disease I25.10 Active 81685478 Problem Renal stones N20.0 Active 49109606 ALLERGIES Substance Reaction Event Type Date Status Nexium anaphylaxis Drug Allergy Dec, Active Methylprednisolone nausea and vomiting Drug Allergy Dec, Active Lipitor weaknesss, dizziness, dyspnea Drug Allergy Dec, Active Levothyroxine Sodium rash Drug Allergy Dec, Active Honey Bee Venom Unknown Drug Allergy Dec, Active Dexamethasone nausea and vomiting Drug Allergy Dec, Active Azithromycin hives Drug Allergy Dec, Active Amoxicillin hives Drug Allergy Dec, Active Phenergan hallucinations Drug Allergy Dec, Active Adhesive Unknown Non Drug Allergy Dec, Active Tape Unknown Non Drug Allergy Dec, Active ENCOUNTERS Encounter Location Date Diagnosis [facility] [address] [facility] [id number] [place] [address] Jan, [place] [address] [place] [id number] [place] [address] 96660- 9675 07 Jan, 2018 Acute non-recurrent maxillary sinusitis J01.00 and BMI 50.0- 59.9, adult Z68.43 [place] [address] [id number] [place] [address] 52551 -7962 04 Jan, 2018 Congestion of upper respiratory tract J98.8 and BMI 50.0- 59.9, adult Z68.43 [place] [address] [address] [id number] [place] [address] 14162- 0089 Dec, Type 2 diabetes mellitus with diabetic neuropathic arthropathy, 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 ; Morbid obesity with BMI of 50.0-59.9, adult Z68.43 ; Hypothyroidism E03.9 ; Coronary artery disease I25.10 ; Hyperlipidemia LDL goal <70 E78.5 ; Right lower quadrant abdominal pain R10.31 and Acute cystitis with hematuria N30.01 [place] [address] [address] [id number] [place] [address] 38399 -9552 Dec, Migraine with aura and without status migrainosus, not intractable G43.109 ; Dehydration symptoms R63.8 and BMI 50.0-59.9, adult Z68.43 [place] [address] [address] [id number] [place] [address] 31883- 9682 Oct, [place] [address] [place] [address] [id number] [place] [address] 02851- 5319 Oct, [place] [address] [address] [id number] [place] [address] 20977- 9036 Oct, [place] [address] [id number] [place] [address] 74391- 5245 September, [place] [address] [address] [id number] [place] [address] 35346- 2215 September, Type 2 diabetes mellitus with diabetic neuropathic arthropathy, 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 ; Hyperlipidemia, unspecified hyperlipidemia type E78.5 ; Personal history of pulmonary embolism Z86.711 ; Coronary artery disease I25.10 and Hypothyroidism E03.9 [facility] [id number] [place] [address] 04174- 2227 September, [place] [address] 63972- 5714 Aug, Type 2 diabetes mellitus with diabetic [...] without aura and with status migrainosus G43.011 [place] [address] 17412- 4818 Aug, [place] [address] 73451- 6846 Aug, [place] [address] [place] [id number] [place] [address] 56615- 9201 Jul, Renal stones N20.0 [facility] WALK IN [facility] [address] [address] [id number] [place] [address] 68909 -6212 Jun, Back pain M54.9 ; Kidney stones N20.0 and BMI 50.0-59.9, adult Z68.43 [place] [address] [id number] [place] [address] 09959- 3319 Jun, [facility] [address] [address] [id number] [place] [address] 23373- 4686 Apr, [place] [address] 80882- 3276 Apr, [place] [address] 26273- 0554 Apr, Right foot pain M79.671 ; Acute gout involving toe of right foot, 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 and Arthritis M19.90 [place] [address] [address] [id number] [place] [address] 80430- 9536 06 Apr, 2017 Gastroesophageal reflux disease without esophagitis K21.9 [place] [address] [place] [address] [id number] [place] [address] 32746- 7628 16 Mar, 2017 Hypothyroidism, unspecified E03.9 [place] [address] 74549- 6036 11 Feb, 2017 [place] [address] 27764- 4912 25 Jan, 2017 Cervicalgia of hvkuanta-krfojnf-ljtma region M54.2 and Persistent headaches R51 [place] [address] 17632- 0390 20 Jan, 2017 [place] [address] 06299- 5112 12 Jan, 2017 Intractable migraine without aura and with status migrainosus G43.011 ; Cervical spine pain M54.2 ; Hyperlipidemia, unspecified hyperlipidemia type E78.5 ; Hypothyroidism E03.9 and Metabolic syndrome E88.81 [place] [address] [id number] [place] [address] 09443- 4087 Jan, Hypothyroidism, unspecified E03.9 [place] [address] [address] [id number] [place] [address] 24261- 1009 Dec, Hypothyroidism, unspecified E03.9 [place] [address] [address] [id number] [place] [address] 48406- 1526 Dec, Hypothyroidism E03.9 [place] [address] 63613- 7760 Nov, Laceration of left great toe w/o foreign body w/o damage to nail, initial encounter S91.112A [facility] [address] [id number] [place] [address] 55990 -1381 Oct, Pain in left knee M25.562 and Arthritis M19.90 [facility] [address] [place] [id number] [place] [address] 22687- 5422 Oct, Hypothyroidism, unspecified E03.9 and Hyperlipidemia, unspecified hyperlipidemia type E78.5 [place] [address] [address] [id number] [place] [address] 99788- 8241 Oct, Gastroesophageal reflux disease without esophagitis K21.9 [facility] [address] [place] [address] [id number] [place] [address] 63957- 3576 14 Oct, 2016 Metabolic syndrome E88.81 ; Personal history of pulmonary embolism Z86.711 ; Other specified hypothyroidism E03.8 and Hyperlipidemia, unspecified hyperlipidemia type E78.5 [place] [id number] [place] [address] 19345- 5471 13 Oct, 2016 Personal history of pulmonary embolism Z86.711 ; Dysuria R30.0 ; Metabolic syndrome E88.81 ; Other specified hypothyroidism E03.8 ; Hyperlipidemia, unspecified hyperlipidemia type E78.5 and Morbid obesity with BMI of 50.0-59.9, adult Z68.43 [place] [address] [place] [address] [id number] [place] [address] 82334- 2658 September, [facility] WALK IN [facility] [address] [place] [address] [id number] [place] [address] 33317 -8871 September, Wrist pain, left M25.532 and Acute pain of left knee M25.562 [place] [address] [address] [id number] [place] [address] 98977- 3530 Jul, Dysuria R30.0 [facility] [address] [place] [id number] [place] [address] 82913- 4020 Jul, Dysuria R30.0 [place] [address] [address] [id number] [place] [address] 57475- 7543 16 Jul, 2016 Left lower quadrant pain R10.32 [facility] [address] [place] [address] [id number] [place] [address] 66969- 6159 Jul, [place] [id number] [place] [address] 61470- 2363 09 Jul, 2016 Coronary artery disease I25.10 ; Family history of diabetes mellitus Z83.3 ; Morbid obesity with BMI of 50.0-59.9, adult Z68.43 ; Metabolic syndrome E88.81 ; Personal history of pulmonary embolism Z86.711 ; Gastroesophageal reflux disease without esophagitis K21.9 ; Hypothyroidism, unspecified E03.9 ; Hyperlipidemia, unspecified hyperlipidemia type E78.5 and Left lower quadrant pain R10.32 [facility] [place] [id number] [place] [address] 41769 -1359 09 Jul, 2016 [facility] [address] 98095 -3228 08 Jul, 2016 Morbid obesity with BMI of 50.0-59.9, adult Z68.43 [facility] [address] 42752 -1626 Jul, Generalized abdominal pain R10.84 [facility] [place] [id number] [place] [address] 25877 -9548 02 Jun, 2016 Muscle strain of right upper back, initial encounter S29.012A [facility] [place] [id number] [place] [address] 80324 -5857 May, Foreign body (FB) in soft tissue M79.5 [place] [address] [place] [id number] [place] [address] 43520- 2236 Mar, Hypothyroidism, unspecified E03.9 and Arthritis M19.90 [place] [id number] [place] [address] 05209- 0463 13 Feb, 2016 Coronary artery disease I25.10 ; Morbid obesity with BMI of 50.0-59.9, adult Z68.43 ; Metabolic syndrome E88.81 ; Gastroesophageal reflux disease without esophagitis K21.9 ; Hypothyroidism, unspecified E03.9 ; Personal history of pulmonary embolism Z86.711 and Hyperlipidemia, unspecified hyperlipidemia type E78.5 [place] [address] [address] 0[address] Feb, [facility] [place] [id number] [place] [address] 15408 -0432 Jan, Acute right-sided thoracic back pain M54.6 [place] [address] [place] [id number] [place] [address] 91060- 9544 Jan, Acute pain of left knee M25.562 [place] [address] [place] [id number] [place] [address] 52007- 2080 Dec, Dysuria R30.0 ; Metabolic syndrome E88.81 ; Acute pain of left knee M25.562 ; Acute cystitis with hematuria N30.01 and Acute left eye pain H57.12 [place] [address] [place] [id number] [place] [address] 26325- 4622 Dec, [place] [address] [place] [id number] [place] [address] 33549- 1025 Dec, [place] [address] [place] [id number] [place] [address] 88028- 3638 Dec, Hypothyroidism, unspecified E03.9 [place] [address] [place] [id number] [place] [address] 52533- 4272 Dec, [place] [address] [place] [id number] [place] [address] 84742- 2136 Nov, Peripheral edema R60.9 and Acute pain of left knee M25.562 [facility] [address] [place] [address] 66939 -5062 September, [place] [address] [place] [id number] [place] [address] 41169- 8612 September, Metabolic syndrome E88.81 and Allergy, subsequent encounter T78.40XD [facility] [address] [place] [address] 13110 -8337 September, Muscle strain T14.8 [place] [address] [place] [id number] [place] [address] 57716- 7748 Aug, Chest pressure R07.89 ; Metabolic syndrome E88.81 ; Morbid obesity with BMI of 50.0-59.9, adult Z68.43 ; Esophageal reflux 530.81 and Shortness of breath R06.02 [place] [address] 03418- 8217 Aug, [place] [address] 80426- 2117 Aug, [place] [address] 94098- 1414 Aug, Hypothyroidism, unspecified E03.[address] 48324- 5701 Aug, Routine health maintenance Z00.00 [facility] W[facility] IN [address] 33034 -7309 Aug, [place] [address] 81929- 4195 Jul, Routine health maintenance Z00.00 ; Family history of diabetes mellitus Z83.3 ; Family history of cancer Z80.9 and Morbid obesity with BMI of 50.0-59.9, adult Z68.43 [facility] [place] [id number] [place] [address] 53267 -2624 Jul, 2016 Allergic rhinitis J30.9 and Postnasal drip R09.82 [place] [id number] [place] [address] 60728- 1167 Jul, Influenza J11.1 [facility] IN [address] 15680 -4388 08 Jul, 2015 Dysuria R30.[address] 92298- 9912 Apr, [address] [place] [address]- 3505 Mar, Acute upper respiratory infection, unspecified J06.9 and Hypothyroidism E03.9 [facility] [address] [address]- 3936 Mar, [facility] [address] [address]- 8830 Feb, Coronary artery disease I25.10 [facility] [address] [address]- 9732 Feb, Left foot pain M79.672 [facility] [address] [place] [address] 48635- 8366 Jan, UTI (urinary tract infection) 599.0 [facility] [address] [address]- 7416 Jan, Urinary tract infection, site not specified 599.0 [facility] [address] [address]- 2124 Jan, Urinary tract infection, site not specified 599.0 [facility] [address] [address]- 7206 Jan, [facility] [address] [place] [id number] [address]- 6978 Dec, Headache 784.0 [facility] [address] [address]- 2246 Dec, Urinary tract infection, site not specified 599.0 [facility] [address] [place] [id number] [address]- 1516 Dec, Urinary tract infection, site not specified 599.0 [facility] [address] [place] [id number] [address]- 2963 Dec, Urinary tract infection, site not specified 599.0 [facility] [address] [address]- 9574 Nov, Unspecified sleep apnea 780.57 ; Encounter for long-term ( current) use of anticoagulants V58.61 ; Routine general medical examination at health care facility V70.0 and Arthritis of both knees 716.96 [facility] [address] [place] [id number] [place] [address] 37435- 7608 September, Cat bite of hand 882.0 and Rectal bleeding 569.3 [facility] [address] 14938- 8530 Aug, [facility] [address] [place] [id number] [place] [address] 65230- 2673 Aug, [facility] [address] [place] [id number] [place] [address] 55487- 8293 Jul, [facility] [address] [place] [id number] [place] [address] 19519- 3966 Jul, [facility] [address] [place] [id number] [place] [address] 05689- 3240 Jul, [facility] [address] [place] [id number] [place] [address] 06257- 1533 Jul, [facility] [address] [place] [id number] [place] [address] 86670- 4381 Jul, [facility] [address] [place] [id number] [place] [address] 26219- 1549 Jul, [facility] [address] [place] [id number] [place] [address] 90719029- 1655 Jul, [facility] [address] [place] [id number] [place] [address] 512768- 3138 Jul, [facility] [address] [place] [id number] [place] [address] 121553- 2708 May, [facility] [address] [place] [id number] [place] [address] 709252- 6133 May, [facility] [address] [place] [id number] [place] [address] 43538- 4109 May, [facility] [place] [facility] [address] [id number] [place] [address]- 3956 May, [facility] [place] [facility] [address] [id number] [place] [address]- 7231 May, [facility] [place] [facility] [address] [id number] [place] [address]- 4288 May, [facility] [place] [facility] [address] [id number] [place] [address]- 0639 May, [facility] [place] [facility] [address] [id number] [place] [address]- 7758 Mar, [facility] [place] [facility] [address] [id number] [place] [address]- 2476 Mar, [facility] [place] [facility] [address] [id number] [place] [address]- 7673 08 Jan, 2013 [facility] [place] [facility] [address] [id number] [place] [address]- 2130 08 Jan, 2013 [facility] [place] [facility] [address] [id number] [place] [address]- 5891 08 Jan, 2013 [facility] [place] [facility] [address] [id number] [place] [address]- 6294 08 Jan, 2013 [facility] [place] [facility] [address] [id number] [place] [address]- 6582 05 Jan, 2013 [facility] [place] [facility] [address] [id number] [place] [address]- 8854 05 Jan, 2013 [facility] [place] [facility] [address] [id number] [place] [address]- 4567 Dec, [facility] [place] [facility] [address] [id number] [place] [address]- 5700 Dec, [facility] [place] [facility] [address] [id number] [place] [address]- 5649 Dec, [facility] [place] [facility] [address] [id number] [place] [address]- 7266 Dec, [facility] [place] [facility] [address] [id number] [place] [address]- 6202 Dec, [facility] [place] [facility] [address] [id number] [place] [address]- 0098 Dec, [facility] [place] [facility] [address] [id number] [place] [address]- 6925 Dec, [facility] [place] [facility] [address] [id number] [place] [address]- 6207 Dec, [facility] [place] [facility] [address] [id number] [place] [address]- 6877 Dec, [facility] [place] [facility] [address] [id number] [place] [address]- 9406 Dec, [facility] [place] [facility] [address] [id number] [place] [address]- 5894 Nov, [facility] [place] [facility] [address] [id number] [place] [address]- 7714 Nov, [facility] [place] [facility] [address] [id number] [place] [address]- 5739 September, [facility] [place] [facility] [address] [id number] [place] [address]- 2452 September, [facility] [place] [facility] [address] [id number] [place] [address]- 1605 September, [facility] [place] [facility] [address] [id number] [place] [address]- 1587 September, [facility] [place] [facility] [address] [id number] [place] [address]- 9058 Aug, [facility] [place] [facility] [address] [id number] [place] [address]- 4295 Aug, [facility] [place] [facility] [address] [id number] [place] [address]- 1304 Aug, [facility] [place] [facility] [address] [id number] [place] [address]- 9162 Aug, [facility] [place] [facility] [address] [id number] [place] [address]- 2749 Aug, [facility] [place] [facility] [address] [id number] [place] [address]- 1643 Aug, [facility] [place] [facility] [address] [id number] [place] [address]- 9837 Aug, [facility] [place] [facility] [address] [id number] [place] [address]- 2570 Aug, [facility] [place] [facility] [address] [id number] [place] [address]- 1674 Aug, [facility] [place] [facility] [address] [id number] [place] [address]- 6548 Aug, [facility] [place] [facility] [address] [id number] [place] [address]- 5341 Aug, [facility] [place] [facility] [address] [id number] [place] [address]- 9070 Aug, [facility] [place] [facility] [address] [id number] [place] [address]- 0890 Jul, [facility] [place] [facility] [address] [id number] [address]- 9424 Jul, [facility] [place] [facility] [address] [id number] [address]- 0242 Jul, [facility] [place] [facility] [address] [id number] [place] [address]- 2367 Jul, [facility] [place] [facility] [address] [id number] [place] [address]- 7032 Jul, [facility] [place] [facility] [address] [id number] 2076 Jul, [facility] [place] [facility] [address] [id number] [address]- 2873 05 Jul, 2013 [facility] [place] [facility] [address] [id number] [place] [address]- 1400 Jul, [facility] [place] [facility] [address] [id number] [place] [address]- 3461 Jul, [facility] [place] [facility] [address] [id number] [place] [address]- 0708 Jul, [facility] [place] [facility] [address] [id number] [place] [address]- 1980 Jun, [facility] [place] [facility] [address] [id number] [place] [address]- 2725 Jun, [facility] [place] [facility] [address] [id number] [place] [address]- 1306 Jun, [facility] [place] [facility] [address] [id number] [place] [address]- 0086 Jun, [facility] [place] [facility] [address] [id number] [place] [address]- 2507 Jun, [facility] [place] [facility] [address] [id number] [place] [address]- 5629 Jun, [facility] [place] [facility] [address] [facility] [id number] [place] [address]- [address] Jun, [facility] [place] [facility] [address] [id number] [place] [address] Jun, [facility] [place] [facility] [address] [id number] [place] [address] Jun, [facility] [place] [facility] [address] [id number] [place] [address] Jun, [facility] [place] [facility] [address] [id number] [place] [address] Jun, [facility] [place] [facility] [address] [facility] [id number] [place] [address] Jun, [facility] [place] [facility] [address] [id number] [place] [address] May, [facility] [place] [facility] [address] [id number] [place] [address] May, [facility] [place] [facility] [address] [id number] [place] [address] May, [facility] [place] [facility] [address] [id number] [place] [address] May, [facility] [place] [facility] [address] [id number] [place] [address] May, [facility] [place] [facility] [address] [id number] [place] [address] May, [facility] [place] [facility] [address] [id number] [place] [address] May, [facility] [place] [facility] [address] [id number] [place] [address] May, [facility] [place] [facility] [address] [id number] [place] [address] May, [facility] [place] [facility] [address] [id number] [place] [address] May, [facility] [place] [facility] [address] [id number] [address] May, [facility] [place] [facility] [address] [id number] [address] May, [facility] [place] [facility] [address] [id number] [place] [address] May, [facility] [place] [facility] [address] [id number] [place] [address] May, [facility] [place] [facility] [address] [id number] [place] [address] May, [facility] [place] [facility] [address] [id number] [place] [address] Apr, [facility] [address] [id number] [place] [address] Apr, [facility] [place] [facility] [address] [id number] [place] [address] Apr, [facility] [address] [id number] [place] [address] Apr, [facility] [place] [facility] [address] [id number] [place] [address] Mar, [facility] [place] [facility] [address] [id number] [place] [address] Mar, [facility] [place] [facility] [address] [id number] [place] [address] Mar, [facility] [address] [id number] [place] [address] Mar, [facility] [place] [facility] [address] [id number] [place] [address] Mar, [facility] [place] [facility] [address] [id number] [place] [address] Mar, [facility] [place] [facility] [address] [facility] [id number] [place] [address] Mar, [facility] [place] [facility] [address] [id number] [place] [address] Mar, [facility] [place] [facility] [address] [id number] [address] Mar, [facility] [place] [facility] [address] [id number] [place] [address] Mar, [facility] [place] [facility] [address] [facility] [id number] [place] [address] Mar, [facility] [place] [facility] [address] [id number] [address] Mar, [facility] [place] [facility] [address] [id number] [place] [address] Feb, [facility] [place] [facility] [address] [id number] [place] [address] 18 Jan, 2013 [facility] [place] [facility] [address] [id number] [place] [address] 17 Jan, 2013 [facility] [place] [facility] [address] [id number] [place] [address] 06 Jan, 2013 [facility] [place] [facility] [address] [id number] [place] [address] 04 Jan, 2013 [facility] [place] [facility] [address] [id number] [place] [address] Jan, [facility] [place] [facility] [address] [id number] [place] [address] Dec, [facility] [place] [facility] [address] [id number] [place] [address]74 Dec, [facility] [place] [facility] [address] [id number] [place] [address] Dec, [facility] [place] [facility] [address] [id number] [place] [address] Dec, [facility] [place] [facility] [address] [id number] [place] [address] Dec, [facility] [place] [facility] [address] [id number] [place] [address]35 Dec, [facility] [place] [facility] [address] [id number] [place] [address] Dec, [facility] [place] [facility] [address] [id number] [place] [address] Dec, [facility] [place] [facility] [address] [id number] [place] [address] Nov, [facility] [place] [facility] [address] [id number] [place] [address]136 Nov, [facility] [place] [facility] [address] [id number] [place] [address] Nov, [facility] [place] [facility] [address] [id number] [place] [address] Nov, [facility] [place] [facility] [address] [facility] [id number] [place] [address] Nov, [facility] [place] [facility] [address] [id number] [place] [address] Nov, [facility] [place] [facility] [address] [id number] [place] [address] Oct, [facility] [address] [id number] [place] [id number] Oct, [facility] [address] [id number] [place] [id number] Oct, [facility] [address] [id number] [place] [id number] Oct, [facility] [address] [id number] [place] [id number] Oct, [facility] [place] [facility] [address] [facility] [id number] [place] [address] Oct, [facility] [place] [facility] [address] [facility] [id number] [place] [address] Oct, [facility] [place] [facility] [address] [facility] [id number] [place] [address]074 Oct, [facility] [place] [facility] [address] [id number] [address] Oct, [facility] [place] [facility] [address] [facility] [id number] [place] [address] Oct, [facility] [place] [facility] [address] [facility] [id number] [place] [address] Oct, [facility] [place] [facility] [address] [facility] [id number] [place] [address] September, [facility] [address] [id number] [place] [address] Aug, [facility] [place] [facility] [address] [id number] [place] [address] Aug, [facility] [address] [id number] [place] [address] Aug, [facility] [place] [facility] [address] [id number] [place] [address] 69[address] Aug, [facility] [address] [id number] [place] [address] Jul, [facility] [place] [facility] [address] [id number] [place] [address] Jul, [facility] [address] [id number] [place] [address] Jul, [facility] [address] [id number] [place] [address] 1162 Jul, [facility] [place] [facility] [address] [id number] [place] [address]- 2485 Jul, [facility] [address] [id number] [place] [address] 2680 Jun, [facility] [place] [facility] [address] [id number] [place] [address] 2543 Jun, [facility] [place] [facility] [address] [id number] [place] [address] 8723 Jun, [facility] [place] [facility] [address] [id number] [place] [address] 6365 May, [facility] [place] [facility] [address] [id number] [place] [address]- [address]38 24 May, 2012 [facility] [place] [facility] [address] [id number] [place] [address] 7089 14 May, 2012 [facility] [place] [facility] [address] [id number] [place] [address] 2477 11 May, 2012 [facility] [address] [id number] [place] [address] 07 May, 2012 [facility] [place] [facility] [address] [id number] [place] [address]- [address]20 04 May, 2012 [facility] [address] [id number] [place] [address]348 18 Apr, 2012 [facility] [place] [facility] [address] [id number] [place] [address]136 18 Apr, 2012 [facility] [address] [id number] [place] [address] 2931 13 Apr, 2012 [facility] [place] [facility] [address] [id number] [place] [address]- 3099 13 Apr, 2012 [facility] [address] [id number] [place] [address]- 1078 13 Apr, 2012 [facility] [place] [facility] [address] [id number] [place] [address]- 4546 Apr, [facility] [place] [facility] [address] [id number] [place] [address]- 9763 Apr, [facility] [place] [facility] [address] [id number] [place] [address]- 3865 Mar, [facility] [place] [facility] [address] [id number] [place] [address]- 6708 Mar, [facility] [place] [facility] [address] [id number] [place] [address] 4889 Mar, [facility] [place] [facility] [address] [id number] [place] [address] 1373 Mar, [facility] [place] [facility] [address] [id number] [place] [address]- 7771 18 Jan, 2012 [facility] [place] [facility] [address] [id number] [place] [address]- 1645 10 Jan, 2012 [facility] [address] [id number] [address] Jan, [facility] [address] [facility] [id number] [place] [address] Jan, [facility] [id number] [id number] Dec, [facility] [address] [facility] [id number] [place] [address] Dec, [facility] [id number] [id number] Dec, [facility] [address] [facility] [id number] [place] [address] Dec, [facility] [id number] [address] Dec, [facility] [address] [id number] [address] Dec, [facility] [id number] [address] Nov, [facility] [id number] [address] Nov, [facility] [id number] [id number] Nov, IMMUNIZATIONS No Known Immunizations SOCIAL HISTORY Never Assessed REASON FOR VISIT Diabetes--tcuppettRN, A1C, PLAN OF CARE Activity Details Follow Up 3 Months, prn Reason:CHM/HTN VITAL SIGNS Height 64 in 2018-01-01 Weight 304.1 lbs 2018-01-01 Temperature 98.0 degrees Fahrenheit 2018-01-01 Heart Rate 64 bpm 2018-01-01 Respiratory Rate 20 2018-01-01 BMI 52.19 kg/m2 2018-01-01 Blood pressure systolic 126 mmHg 2018-01-01 Blood pressure diastolic 82 mmHg 2018-01-01 MEDICATIONS Medication Instructions Dosage Frequency Start Date End Date Duration Status Glucometer glucometer ICD10- E11.9 fasting and 2 hours after one meal daily 3 times weekly. test blood sugar Aug, Active Carvedilol 3.125 MG Orally 2 times a day 1 tablet 12h Active Albuterol Sulfate 2.5 mg /3 mL (0.083 %) 1 Each by Inhalation route every 4 hours for cough and wheezePRNfor wheezing or cough Nov, Active Tylenol Extra Strength 500 MG Nov, Active Albuterol Sulfate 90 mcg/actuation Inhalation every 4 hrs inhale 1 puff by inhalation route every 4 hours as needed 4h Jun, 30 days Active Levothyroxine Sodium 150 MCG TAKE ONE TABLET BY MOUTH ONCE DAILY IN THE MORNING ON AN EMPTY STOMACH Active Omeprazole 20 MG TAKE ONE CAPSULE BY MOUTH ONCE DAILY 30 Active Nitroglycerin 0.4 MG/HR Transdermal Once a day 1 patch to skin remove after 12 hours 24h Active Tramadol HCl 50 MG Orally every 6 hrs 1 tablet as needed 6h Active Pravastatin Sodium 20 MG Orally Once a day 1 tablet 24h Active Topamax 100 MG Orally Twice a day 1 tablet 12h Active Aspirin Adult Low Dose 81 MG Orally Once a day 1 tablet 24h Active Plavix 75 MG Orally Once a day 1 tablet 24h Active Test strips Test Strips ICD10- E11.9 fasting and 2 hours after one meal daily 2 times weekly. test blood sugar Aug, Active Macrobid 100 mg Orally every 12 hrs 1 capsule with food 12h Dec, Dec, 7 day(s) Active RESULTS No Results PROCEDURES Procedure Date Ordered Result Body Site GLYCATED HEMOGLOBIN TEST Jan 01, 2018 URINALYSIS, AUTO, W/O SCOPE Jan 01, 2018 [facility] VISIT ESTABLISHED PATIENT Jan 01, 2018 INSTRUCTIONS MEDICATIONS ADMINISTERED No Known Medications [...]
--- OUTSIDE RECORDS SUMMARY | 2018-07-26 22:02 | XMS REPORT ---
Author Author DOMO ANGEL Organization [facility] Address [address] 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 ; Morbid obesity with BMI of 50.0-59.9, adult Z68.43 ; Hypothyroidism E03.9 ; Coronary artery disease I25.10 ; Hyperlipidemia LDL goal <70 E78.5 ; Right lower quadrant abdominal pain R10.31 and Acute cystitis with hematuria N30.01 [facility] [address] [facility] [id number] [address] Dec, Migraine with aura and without status migrainosus, not intractable G43.109 ; Dehydration symptoms R63.8 and BMI 50.0-59.9, adult Z68.43 [place] [address] [address] Oct, [place] [address] [address]- 8173 Oct, [place] [address] [address]- [address]15 Oct, [place] [address] [address]473- [address]302 September, [address] [address] September, Type 2 diabetes mellitus with diabetic neuropathic arthropathy, 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 ; Hyperlipidemia, unspecified hyperlipidemia type E78.5 ; Personal history of pulmonary embolism Z86.711 ; Coronary artery disease I25.10 and Hypothyroidism E03.[address] [address] September, [address] [address]- [address] Aug, Type 2 diabetes mellitus with diabetic [...] without aura and with status migrainosus G43.[address] [address]- [address] Aug, [place] [address] [place] [id number] [place] [address]24- 1264 Aug, [address] [address]28- 2529 Jul, Renal stones N20.0 [facility]ALK IN [facility] [id number] [place] [address] Jun, Back pain M54.9 ; Kidney stones N20.0 and BMI 50.0-59.9, adult Z68.43 [place] [address] [place] [id number] [place] [address] 85048- 9678 Jun, [facility] [address] [place] [id number] [place] [address] 08595- 5730 Apr, [place] [address] [place] [id number] [place] [address] 73348- 7633 Apr, [place] [address] [place] [id number] [place] [address] 99200- 6930 Apr, Right foot pain M79.671 ; Acute gout involving toe of right foot, 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 and Arthritis M19.90 [place] [address] [place] [id number] [place] [address] 92226- 5988 Apr, Gastroesophageal reflux disease without esophagitis K21.9 [place] [address] [place] [id number] [place] [address] 74445- 4969 Mar, Hypothyroidism, unspecified E03.9 [place] [address] [place] [id number] [place] [address] 85457- 9516 Feb, [place] [address] [place] [id number] [place] [address] 23611- 8044 25 Jan, 2017 Cervicalgia of mwspxkwl-ugxerim-dzupj region M54.2 and Persistent headaches R51 [place] [address] [place] [id number] [place] [address] 19536- 9580 20 Jan, 2017 [place] [address] [place] [id number] [place] [address] 55335- 0886 12 Jan, 2017 Intractable migraine without aura and with status migrainosus G43.011 ; Cervical spine pain M54.2 ; Hyperlipidemia, unspecified hyperlipidemia type E78.5 ; Hypothyroidism E03.9 and Metabolic syndrome E88.81 [place] [address] [place] [id number] [place] [address] 96277- 6161 Jan, Hypothyroidism, unspecified E03.9 [place] [address] [place] [id number] [place] [address] 21527- 7303 Dec, Hypothyroidism, unspecified E03.9 [place] [address] 7[address]77- 5914 Dec, Hypothyroidism E03.9 [place] [address] 49642- 9059 Nov, Laceration of left great toe w/o foreign body w/o damage to nail, initial encounter S91.112A [facility] IN [place] [address] [address] Oct, Pain in left knee M25.562 and Arthritis M19.90 [place] [address] [place] [id number] [place] [address] 55359- 0606 Oct, Hypothyroidism, unspecified E03.9 and Hyperlipidemia, unspecified hyperlipidemia type E78.5 [place] [address] [place] [id number] [place] [address] 12487- 8632 Oct, Gastroesophageal reflux disease without esophagitis K21.9 [place] [address] [place] [id number] [place] [address] 12345- 9498 14 Oct, 2016 Metabolic syndrome E88.81 ; Personal history of pulmonary embolism Z86.711 ; Other specified hypothyroidism E03.8 and Hyperlipidemia, unspecified hyperlipidemia type E78.5 [place] [address] [place] [id number] [place] [address] 33632- 4358 13 Oct, 2016 Personal history of pulmonary embolism Z86.711 ; Dysuria R30.0 ; Metabolic syndrome E88.81 ; Other specified hypothyroidism E03.8 ; Hyperlipidemia, unspecified hyperlipidemia type E78.5 and Morbid obesity with BMI of 50.0-59.9, adult Z68.[address] [place] [id number] [place] [address] 71462- 0371 September, [facility] [place] [id number] [place] [address] 13869 -0190 September, Wrist pain, left M25.532 and Acute pain of left knee M25.562 [place] [address] [place] [id number] [place] [address] 26903- 4897 Jul, Dysuria R30.0 [place] [address] 44267- 9905 Jul, Dysuria R30.0 [place] [address] [place] [id number] [place] [address] 23898- 0000 Jul, Left lower quadrant pain R10.32 [place] [address] [place] [id number] [place] [address] 32220- 0132 Jul, [place] [address] [place] [id number] [place] [address] 27424- 2378 Jul, Coronary artery disease I25.10 ; Family history of diabetes mellitus Z83.3 ; Morbid obesity with BMI of 50.0-59.9, adult Z68.43 ; Metabolic syndrome E88.81 ; Personal history of pulmonary embolism Z86.711 ; Gastroesophageal reflux disease without esophagitis K21.9 ; Hypothyroidism, unspecified E03.9 ; Hyperlipidemia, unspecified hyperlipidemia type E78.5 and Left lower quadrant pain R10.32 [facility] [place] [id number] [place] [address] 75817 -1218 Jul, [facility] [place] [id number] [place] [address] 72452 -3794 Jul, Morbid obesity with BMI of 50.0-59.9, adult Z68.43 [facility] [address] [place] [address] 08560 -9543 Jul, Generalized abdominal pain R10.84 [facility] [place] [id number] [place] [address] 91233 -6839 Jun, Muscle strain of right upper back, initial encounter S29.012A [facility] [place] [address] 6[address] May, Foreign body (FB) in soft tissue M79.5 [place] [address] 15062- 5357 Mar, Hypothyroidism, unspecified E03.9 and Arthritis M19.90 [place] [address] 48624- 1613 Feb, Coronary artery disease I25.10 ; Morbid obesity with BMI of 50.0-59.9, adult Z68.43 ; Metabolic syndrome E88.81 ; Gastroesophageal reflux disease without esophagitis K21.9 ; Hypothyroidism, unspecified E03.9 ; Personal history of pulmonary embolism Z86.711 and Hyperlipidemia, unspecified hyperlipidemia type E78.5 [place] [address] 62184- 6359 Feb, [facility] IN [place] [address] 94307 -4422 Jan, Acute right-sided thoracic back pain M54.6 [place] [address] 57141- 2381 Jan, Acute pain of left knee M25.562 [place] [address] 98748- 2667 Dec, Dysuria R30.0 ; Metabolic syndrome E88.81 ; Acute pain of left knee M25.562 ; Acute cystitis with hematuria N30.01 and Acute left eye pain H57.12 [place] [address] 23740- 4330 Dec, [place] [address] 33460- 9047 Dec, [place] [address] 48517- 5317 Dec, Hypothyroidism, unspecified E03.9 [facility] [address] [place] [address] 42517- 9131 Dec, [place] [address] [place] [id number] [place] [address] 50230- 7437 Nov, Peripheral edema R60.9 and Acute pain of left knee M25.562 [facility] N [place] [id number] [place] [address] 19393 -0063 September, [place] [address] [place] [id number] [place] [address] 90704- 5403 September, Metabolic syndrome E88.81 and Allergy, subsequent encounter T78.40XD [facility] [place] [address] [place] [id number] [place] [address] 06036 -6717 September, Muscle strain T14.8 [place] [address] [place] [id number] [place] [address] 51462- 9969 Aug, Chest pressure R07.89 ; Metabolic syndrome E88.81 ; Morbid obesity with BMI of 50.0-59.9, adult Z68.43 ; Esophageal reflux 530.81 and Shortness of breath R06.02 [place] [address] [place] [address] 47742- 4048 Aug, [place] [address] [place] [address] 98062- 6248 Aug, [place] [address] [place] [id number] [place] [address] 24653- 1986 Aug, Hypothyroidism, unspecified E03.9 [place] [address] [place] [id number] [place] [address] 76321- 5786 Aug, Routine health maintenance Z00.00 [facility] [address] [place] [id number] [place] [address] 34858 -7065 Aug, [place] [address] [place] [id number] [place] [address] 12533- 5501 31 Jul, 2016 Routine health maintenance Z00.00 ; Family history of diabetes mellitus Z83.3 ; Family history of cancer Z80.9 and Morbid obesity with BMI of 50.0-59.9, adult Z68.43 [facility] IN [facility] [address] [place] [id number] [place] [address] 06100 -3481 28 Jul, 2015 Allergic rhinitis J30.9 and Postnasal drip R09.82 [place] [address] 77524- 9046 18 Jul, 2015 Influenza J11.1 [facility] IN [place] [address] 89448 -1840 08 Jul, 2015 Dysuria R30.0 [place] [address] 50338- 0083 Apr, [place] [address] 91116- 3058 Mar, Acute upper respiratory infection, unspecified J06.9 and Hypothyroidism E03.9 [place] [address] 33346- 4789 Mar, [place] [address] 04481- 8259 Feb, Coronary artery disease I25.10 [place] [address] 48674- 7500 Feb, Left foot pain M79.672 [place] [address] 00484- 9652 Jan, UTI (urinary tract infection) 599.0 [place] [address] 40871- 6196 Jan, Urinary tract infection, site not specified 599.0 [place] [address] 98362- 4664 Jan, Urinary tract infection, site not specified 599.0 [facility] [address] [address] Jan, [facility] [address] [place] [id number] [place] [address] 13071- 8812 Dec, Headache 784.0 [facility] [address] [place] [address] 44623- 6596 Dec, Urinary tract infection, site not specified 599.0 [facility] [address] [place] [id number] [place] [address] 62481- 7011 Dec, Urinary tract infection, site not specified 599.0 [facility] [address] [place] [id number] [place] [address] 40596- 8823 Dec, Urinary tract infection, site not specified 599.0 [facility] [address] [place] [id number] [place] [address] 92006- 2358 Nov, Unspecified sleep apnea 780.57 ; Encounter for long-term ( current) use of anticoagulants V58.61 ; Routine general medical examination at health care facility V70.0 and Arthritis of both knees 716.96 [facility] [address] [place] [id number] [place] [address] 61272- 5209 September, Cat bite of hand 882.0 and Rectal bleeding 569.3 [facility] [address] [place] [address] 11432- 1403 Aug, [facility] [address] [place] [address] 87255- 7046 Aug, [facility] [address] [address] 4501 Jul, [facility] [address] [place] [id number] [place] [address] 67596- 6936 Jul, [facility] [address] [place] [address] 54792- 3113 Jul, [facility] [address] [place] [id number] [place] [address] 80397- 6232 Jul, [facility] [place] [facility] [address] [id number] [place] [address]- 0539 Jul, [facility] [place] [facility] [address] [id number] [place] [address]- 2922 Jul, [facility] [place] [facility] [address] [id number] [place] [address]- 6627 Jul, [facility] [place] [facility] [address] [id number] [place] [address]- 5057 Jul, [facility] [place] [facility] [address] [id number] [place] [address]- 9609 May, [facility] [place] [facility] [address] [id number] [place] [address]- 5493 May, [facility] [place] [facility] [address] [id number] [place] [address]- 4697 May, [facility] [place] [facility] [address] [id number] [place] [address]- 9451 May, [facility] [place] [facility] [address] [id number] [place] [address]- 0523 May, [facility] [place] [facility] [address] [id number] [place] [address]- 6913 May, [facility] [place] [facility] [address] [id number] [address]- 2678 May, [facility] [place] [facility] [address] [id number] [address]- 5069 Mar, [facility] [place] [facility] [address] [id number] [place] [address]- 1554 Mar, [facility] [place] [facility] [address] [id number] [place] [address] Jan, [facility] [place] [facility] [address] [id number] [place] [address]- 4559 Jan, [facility] [place] [facility] [address] [id number] [place] [address]- 6084 08 Jan, 2013 [facility] [place] [facility] [address] [id number] [place] [address]- 6198 Jan, [facility] [place] [facility] [address] [id number] [place] [address]- 2246 Jan, 2013 [facility] [place] [facility] [address] [id number] [place] [address]- 6358 Jan, 2013 [facility] [place] [facility] [address] [id number] [place] [address]- 1808 Dec, [facility] [place] [facility] [address] [id number] [place] [address]- 1825 Dec, [facility] [place] [facility] [address] [id number] [place] [address]- 5213 Dec, [facility] [place] [facility] [address] [id number] [place] [address]- 9983 Dec, [facility] [place] [facility] [address] [id number] [place] [address]- 0340 Dec, [facility] [place] [facility] [address] [id number] [place] [address]- 7959 Dec, [facility] [place] [facility] [address] [id number] [place] [address]- 9624 Dec, [facility] [place] [facility] [address] [id number] [place] [address]- 3355 Dec, [facility] [place] [facility] [address] [id number] [place] [address]- 5358 Dec, [facility] [place] [facility] [address] [id number] [place] [address]- 0593 Dec, [facility] [place] [facility] [address] [id number] [place] [address]- 2308 Nov, [facility] [place] [facility] [address] [id number] [place] [address]- 1398 Nov, [facility] [place] [facility] [address] [id number] [place] [address]- 9597 September, [facility] [place] [facility] [address] [id number] [place] [address]- 2303 September, [facility] [place] [facility] [address] [id number] [place] [address]- 0529 September, [facility] [place] [facility] [address] [id number] [place] [address]- 8117 September, [facility] [place] [facility] [address] [id number] [place] [address]- 0472 Aug, [facility] [place] [facility] [address] [id number] [place] [address]- 9633 Aug, [facility] [place] [facility] [address] [id number] [place] [address]- 4830 Aug, [facility] [place] [facility] [address] [id number] [place] [address]- 9265 Aug, [facility] [place] [facility] [address] [id number] [place] [address]- 4748 Aug, [facility] [place] [facility] [address] [id number] [place] [address]- 5373 Aug, [facility] [place] [facility] [address] [id number] [place] [address]- 3316 Aug, [facility] [place] [facility] [address] [id number] [place] [address]- 6133 Aug, [facility] [place] [facility] [address] [id number] [place] [address]- 8566 Aug, [facility] [place] [facility] [address] [id number] [place] [address]- 0370 Aug, [facility] [place] [facility] [address] [id number] [place] [address]- 4481 Aug, [facility] [place] [facility] [address] [id number] [place] [address]- 6528 07 Aug, 2013 [facility] [place] [facility] [address] [id number] [place] [address]- 4458 20 Jul, 2013 [facility] [place] [facility] [address] [id number] [place] 8761 20 Jul, 2013 [facility] [place] [facility] [address] [id number] [place] [address]- 8917 Jul, [facility] [place] [facility] [address] [id number] [place] [address]- 6259 Jul, [facility] [place] [facility] [address] [id number] [place] [address]- 7808 Jul, [facility] [place] [facility] [address] [id number] [place] [address]- 3060 Jul, [facility] [place] [facility] [address] [id number] [place] [address]- 7565 Jul, [facility] [place] [facility] [address] [id number] [place] [address]- 3748 05 Jul, 2013 [facility] [place] [facility] [address] [id number] [place] [address]- 5276 Jul, [facility] [place] [facility] [address] [id number] [place] [address]- 5577 Jul, [facility] [place] [facility] [address] [id number] [place] [address]- 0045 28 Jun, 2013 [facility] [place] [facility] [address] [id number] [place] [address]- 8169 Jun, [facility] [place] [facility] [address] [id number] [place] [address]- 5717 Jun, [facility] [place] [facility] [address] [id number] [place] [address]- 0816 17 Jun, 2013 [facility] [place] [facility] [address] [id number] [place] [address]- 2192 Jun, [facility] [place] [facility] [address] [id number] [place] [address]- 4688 Jun, [facility] [place] [facility] [address] [id number] [place] [address]- 2926 Jun, [facility] [place] [facility] [address] [id number] [place] [address]- 9490 Jun, [facility] [place] [facility] [address] [id number] [place] [address]- 9955 Jun, [facility] [place] [facility] [address] [id number] [place] [address]- 3486 Jun, [facility] [place] [facility] [address] [id number] [place] [address]- 1429 Jun, [facility] [place] [facility] [address] [id number] [place] [address]- 4519 Jun, [facility] [place] [facility] [address] [id number] [place] [address]- 6234 May, [facility] [place] [facility] [address] [id number] [place] [address]- 4170 May, [facility] [place] [facility] [address] [id number] [place] [address]- 9026 May, [facility] [place] [facility] [address] [id number] [place] [address]- 7830 May, [facility] [place] [facility] [address] [id number] [address]- 4084 May, [facility] [place] [facility] [address] [id number] [place] [address]- 6168 May, [facility] [place] [facility] [address] [id number] [place] [address]- 9157 May, [facility] [place] [facility] [address] [id number] [place] [address]- 3814 May, [facility] [place] [facility] [address] [id number] [place] [address]- 6955 May, [facility] [address] [id number] [place] [address] May, [facility] [place] [facility] [address] [id number] [place] [address] May, [facility] [address] [id number] [place] [address] May, [facility] [place] [facility] [address] [id number] [place] [address] May, [facility] [address] [id number] [place] [address] May, [facility] [place] [facility] [address] [id number] [place] [address] May, [facility] [address] [id number] [place] [address] Apr, [facility] [address] [id number] [place] [address] Apr, [facility] [place] [facility] [address] [id number] [place] [address] Apr, [facility] [place] [facility] [address] [facility] [id number] [place] [address] Apr, [facility] [place] [facility] [address] [id number] [place] [address] Mar, [facility] [place] [facility] [address] [id number] [place] [address] Mar, [facility] [place] [facility] [address] [id number] [place] [address] Mar, [facility] [place] [facility] [address] [id number] [place] [address] Mar, [facility] [place] [facility] [address] [id number] [place] [address] Mar, [facility] [place] [facility] [address] [id number] [place] [address] Mar, [facility] [place] [facility] [address] [id number] [place] [address] Mar, [facility] [place] [facility] [address] [id number] [place] [address] Mar, [facility] [place] [facility] [address] [id number] [place] [address]- [address] Mar, [facility] [place] [facility] [address] [id number] [place] [address] Mar, [facility] [place] [facility] [address] [id number] [place] [address] Mar, [facility] [place] [facility] [address] [id number] [place] [address] Mar, [facility] [place] [facility] [address] [id number] [place] [address] Feb, [facility] [place] [facility] [address] [id number] [place] [address] 18 Jan, 2013 [facility] [place] [facility] [address] [id number] [place] [address] 17 Jan, 2013 [facility] [place] [facility] [address] [id number] [place] [address] 06 Jan, 2013 [facility] [place] [facility] [address] [id number] [address] 04 Jan, 2013 [facility] [place] [facility] [address] [id number] [place] [address] Jan, [facility] [place] [facility] [address] [id number] [place] [address] Dec, [facility] [place] [facility] [address] [id number] [id number] [address] Dec, [facility] [place] [facility] [address] [id number] [address] Dec, [facility] [place] [facility] [address] [id number] [place] [address] Dec, [facility] [place] [facility] [address] [id number] [place] [address] Dec, [facility] [place] [facility] [address] [facility] [id number] [place] [address] Dec, [facility] [place] [facility] [address] [id number] [place] [address] Dec, [facility] [place] [facility] [address] [id number] [place] [address] Dec, [facility] [place] [facility] [address] [facility] [id number] [place] [address] Nov, [facility] [place] [facility] [address] [facility] [id number] [place] [address] Nov, [facility] [place] [facility] [address] [facility] [id number] [place] [address] Nov, [facility] [place] [facility] [address] [facility] [id number] [address] Nov, [facility] [place] [facility] [address] [facility] [id number] [address] Nov, [facility] [place] [facility] [address] [facility] [id number] [place] [address] Nov, [facility] [place] [facility] [address] [facility] [id number] [place] [address] Oct, [facility] [address] [id number] [place] [id number] Oct, [facility] [address] [id number] [place] [id number] Oct, [facility] [address] [id number] [place] [id number] Oct, [facility] [address] [id number] [id number] Oct, [facility] [place] [facility] [address] [id number] [place] [address] Oct, [facility] [place] [facility] [address] [id number] [place] [address] Oct, [facility] [place] [facility] [address] [id number] [place] [address] Oct, [facility] [place] [facility] [address] [id number] [place] [address] Oct, [facility] [place] [facility] [address] [id number] [place] [address] Oct, [facility] [place] [facility] [address] [id number] [place] [address] Oct, [facility] [place] [facility] [address] [id number] [place] [address] September, [facility] [place] [facility] [address] [id number] [place] [address] Aug, [facility] [place] [facility] [address] [id number] [place] [address] Aug, [facility] [place] [facility] [address] [id number] [place] [address] Aug, [facility] [place] [facility] [address] [id number] [place] [address] Aug, [facility] [place] [facility] [address] [id number] [place] [address] 6985 Jul, [facility] [place] [facility] [address] [id number] [place] [address] Jul, [facility] [place] [facility] [address] [id number] [place] [address] Jul, [facility] [place] [facility] [address] [id number] [place] [address] Jul, [facility] [place] [facility] [address] [id number] [place] [address]- [address] 04 Jul, 2012 [facility] [address] [id number] [place] [address] 19 Jun, 2012 [facility] [address] [id number] [place] [address]- [address] 13 Jun, 2012 [facility] [address] [id number] [place] [address] 11 Jun, 2012 [facility] [place] [facility] [address] [id number] [place] [address] May, [facility] [address] [id number] [place] [address] 24 May, 2012 [facility] [address] [id number] [place] [address] 14 May, 2012 [facility] [address] [id number] [place] [address] May, [facility] [address] [id number] [place] [address] May, [facility] [address] [id number] [place] [address] May, [facility] [address] [id number] [place] [address] 18 Apr, 2012 [facility] [address] [id number] [place] [address] 18 Apr, 2012 [facility] [place] [facility] [address] [id number] [place] [address] 13 Apr, 2012 [facility] [place] [facility] [address] [id number] [place] [address] 13 Apr, 2012 [facility] [place] [facility] [address] [id number] [place] [address] 40[address] 13 Apr, 2012 [facility] [address] [id number] [place] [address] Apr, [facility] [place] [facility] [address] [id number] [place] [address] Apr, [facility] [place] [facility] [address] [id number] [place] [address] Mar, [facility] [place] [facility] [address] [id number] [place] [address] Mar, [facility] [place] [facility] [address] [id number] [place] [address] Mar, [facility] [place] [facility] [address] [id number] [place] [address] Mar, [facility] [place] [facility] [address] [id number] [place] [address] Jan, [facility] [address] [facility] [id number] [place] [address] Jan, [facility] [address] [facility] [id number] [place] [address] Jan, [facility] [address] [facility] [id number] [place] [address] Jan, [facility] [address] [id number] [id number] Dec, [facility] [address] [facility] [id number] [place] [address]686 Dec, [facility] [id number] [id number] Dec, [facility] [place] [facility] [address] [id number] [place] [address] Dec, [facility] [place] [facility] [address] [id number] [place] [address] Dec, [facility] [place] [facility] [address] [id number] [place] [address] Dec, [facility] [place] [facility] [address] [id number] [place] [address] Nov, [facility] [address] [facility] [id number] [place] [address] Nov, [facility] [address] [facility] [id number] [place] [address] Nov, IMMUNIZATIONS No Known Immunizations SOCIAL HISTORY Never Assessed REASON FOR VISIT Group PLAN OF CARE VITAL SIGNS MEDICATIONS No [...] with polyp removed/ Dr. North and Dr. Santaan - had one cancerous. Medical History Leiomyoma [...]
--- OUTSIDE RECORDS SUMMARY | 2018-07-26 22:02 | XMS REPORT ---
Author Author DOMO ANGEL Organization [facility] Address [address] 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 Active 979570061 Problem Hyperlipidemia, unspecified hyperlipidemia type E78.5 Active 02353147 Problem Morbid obesity with BMI of 50.0-59.9, adult Z68.43 Active 664357937 Problem Arthritis M19.90 Active 2969066 Problem Personal history of pulmonary embolism Z86.711 Active 201859999 Problem Gastroesophageal reflux disease without esophagitis K21.9 Active 595259168 Problem Migraine with aura and without status migrainosus, not intractable G43.109 Active 7853894 Problem Coronary artery disease I25.10 Active 79090759 Problem Intractable migraine without aura and with status migrainosus G43.011 Active 881047304 Problem Hypothyroidism E03.9 Active 12067362 Problem Renal stones N20.0 Active 81687443 Problem Acute gout involving toe of right foot, 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 Active 700229853 ALLERGIES No Information ENCOUNTERS Encounter Location Date Diagnosis [facility] [address] [facility] [id number] [address] Dec, Morbid obesity with BMI of 50.0-59.9, adult Z68.43 ; Hypothyroidism E03.9 ; Hyperlipidemia, unspecified hyperlipidemia type E78.5 ; Type 2 diabetes mellitus with diabetic neuropathic arthropathy, without long- term current use of insulin E11.610 ; Right lower quadrant abdominal pain R10.31 ; Urinary tract infection, site not specified N39.0 and Coronary artery disease I25.10 [facility] [address] [facility] [id number] [address] Dec, Migraine with aura and without status migrainosus, not intractable G43.109 ; Dehydration symptoms R63.8 and BMI 50.0-59.9, adult Z68.43 [place] [address] [place] [id number] [place] [address] 27530- 1340 Oct, [place] [address] [place] [id number] [place] [address] 13257- 2603 Oct, [place] [address] [place] [id number] [place] [address] 40362- 0341 Oct, [place] [address] [place] [id number] [place] [address] 99917- 4133 September, [place] [address] [place] [id number] [place] [address] 89400- 2611 September, Type 2 diabetes mellitus with diabetic neuropathic arthropathy, 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 ; Hyperlipidemia, unspecified hyperlipidemia type E78.5 ; Personal history of pulmonary embolism Z86.711 ; Coronary artery disease I25.10 and Hypothyroidism E03.9 [place] [address] [place] [id number] [place] [address] 68128- 5140 September, [place] [address] [place] [id number] [place] [address] 76172- 1342 Aug, Type 2 diabetes mellitus with diabetic [...] without aura and with status migrainosus G43.011 [place] [id number] [place] [address] 65497- 8112 Aug, [place] [address] [place] [id number] [place] [address] 35359- 0870 Aug, [facility] [address] [place] [id number] [place] [address] 81740- 2438 Jul, Renal stones N20.0 [facility] [address] [place] [id number] [place] [address] 71867 -1248 Jun, Back pain M54.9 ; Kidney stones N20.0 and BMI 50.0-59.9, adult Z68.43 [facility] [address] 42252- 2613 Jun, [facility] [address] 18690- 9061 Apr, [place] [address] 04727- 7131 Apr, [place] [address] 26187- 2445 Apr, Right foot pain M79.671 ; Acute gout involving toe of right foot, 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 and Arthritis M19.90 [facility] [address] [place] [id number] [place] [address] 79849- 0325 06 Apr, 2017 Gastroesophageal reflux disease without esophagitis K21.9 [place] [address] [place] [id number] [place] [address] 15578- 8070 16 Mar, 2017 Hypothyroidism, unspecified E03.9 [facility] [address] [place] [id number] [place] [address] 49365- 3156 Feb, [place] [address] [place] [id number] [place] [address] 25412- 7972 25 Jan, 2017 Cervicalgia of skcbsqjt-raoqsdh-elyir region M54.2 and Persistent headaches R51 [place] [address] [place] [id number] [place] [address] 52804- 0675 20 Jan, 2017 [facility] [address] [place] [id number] [place] [address] 13008- 4162 12 Jan, 2017 Intractable migraine without aura and with status migrainosus G43.011 ; Cervical spine pain M54.2 ; Hyperlipidemia, unspecified hyperlipidemia type E78.5 ; Hypothyroidism E03.9 and Metabolic syndrome E88.81 [place] [address] [place] [id number] [place] [address] 43060- 1656 Jan, Hypothyroidism, unspecified E03.9 [place] [address] 51380- 5970 Dec, Hypothyroidism, unspecified E03.9 [place] [address] 27041- 9008 Dec, Hypothyroidism E03.[address] 32044- 7873 Nov, Laceration of left great toe w/o foreign body w/o damage to nail, initial encounter S91.112A [facility] [place] [address] 28964 -5535 Oct, Pain in left knee M25.562 and Arthritis M19.[address] 21164- 4118 Oct, Hypothyroidism, unspecified E03.9 and Hyperlipidemia, unspecified hyperlipidemia type E78.5 [place] [address] [place] [id number] [place] [address] 41666- 0451 Oct, Gastroesophageal reflux disease without esophagitis K21.9 [place] [address] [place] [id number] [place] [address] 78628- 9975 Oct, Metabolic syndrome E88.81 ; Personal history of pulmonary embolism Z86.711 ; Other specified hypothyroidism E03.8 and Hyperlipidemia, unspecified hyperlipidemia type E78.5 [place] [address] 69102- 3250 13 Oct, 2016 Personal history of pulmonary embolism Z86.711 ; Dysuria R30.0 ; Metabolic syndrome E88.81 ; Other specified hypothyroidism E03.8 ; Hyperlipidemia, unspecified hyperlipidemia type E78.5 and Morbid obesity with BMI of 50.0-59.9, adult Z68.43 [place] [address] [place] [id number] [place] [address] 82011- 3089 September, [facility] [place] [address] [place] [id number] [place] [address] 95213 -0677 September, Wrist pain, left M25.532 and Acute pain of left knee M25.562 [place] [address] 09891- 5561 Jul, Dysuria R30.[address] 92728- 4899 Jul, Dysuria R30.0 [place] [address] 19624- 1249 Jul, Left lower quadrant pain R10.32 [place] [id number] [place] [address] 84165- 6133 Jul, [place] [address] [place] [id number] [place] [address] 44117- 5962 Jul, Coronary artery disease I25.10 ; Family history of diabetes mellitus Z83.3 ; Morbid obesity with BMI of 50.0-59.9, adult Z68.43 ; Metabolic syndrome E88.81 ; Personal history of pulmonary embolism Z86.711 ; Gastroesophageal reflux disease without esophagitis K21.9 ; Hypothyroidism, unspecified E03.9 ; Hyperlipidemia, unspecified hyperlipidemia type E78.5 and Left lower quadrant pain R10.32 [facility] [id number] [place] [address] 73355 -3016 Jul, [facility] [place] [id number] [place] [address] 29007 -4561 Jul, Morbid obesity with BMI of 50.0-59.9, adult Z68.43 [facility] [place] [id number] [place] [address] 25890 -5134 Jul, Generalized abdominal pain R10.84 [facility] [place] [address] [place] [id number] [place] [address] 06530 -6289 02 Jun, 2016 Muscle strain of right upper back, initial encounter S29.012A [facility] [place] [address] [place] [id number] [place] [address] 49779 -2538 May, Foreign body (FB) in soft tissue M79.5 [place] [address] 71823- 7384 Mar, Hypothyroidism, unspecified E03.9 and Arthritis M19.90 [place] [address] [place] [id number] [place] [address] 74635- 4700 Feb, Coronary artery disease I25.10 ; Morbid obesity with BMI of 50.0-59.9, adult Z68.43 ; Metabolic syndrome E88.81 ; Gastroesophageal reflux disease without esophagitis K21.9 ; Hypothyroidism, unspecified E03.9 ; Personal history of pulmonary embolism Z86.711 and Hyperlipidemia, unspecified hyperlipidemia type E78.5 [place] [address] [place] [id number] [place] [address] 32230- 2512 Feb, [facility] [place] [address] [place] [id number] [place] [address] 34864 -1203 Jan, Acute right-sided thoracic back pain M54.6 [place] [address] [place] [id number] [place] [address] 48588- 8013 Jan, Acute pain of left knee M25.562 [place] [address] [place] [id number] [place] [address] 45965- 1636 Dec, Dysuria R30.0 ; Metabolic syndrome E88.81 ; Acute pain of left knee M25.562 ; Acute cystitis with hematuria N30.01 and Acute left eye pain H57.12 [place] [address] [place] [id number] [place] [address] 07348- 4847 Dec, [place] [address] [place] [id number] [place] [address] 78475- 0339 Dec, [place] [address] [address]- 2547 Dec, Hypothyroidism, unspecified E03.9 [place] [address] [place] [address] 20042- 0857 Dec, [place] [address] [place] [id number] [place] [address] 88064- 7994 Nov, Peripheral edema R60.9 and Acute pain of left knee M25.562 [facility] [place] [address] [place] [id number] [place] [address] 78810 -5941 September, [place] [address] [place] [id number] [place] [address] 03872- 4588 September, Metabolic syndrome E88.81 and Allergy, subsequent encounter T78.40XD [facility] [place] [address] [place] [id number] [place] [address] 45242 -0934 September, Muscle strain T14.8 [place] [address] [place] [id number] [place] [address] 82121- 6408 Aug, Chest pressure R07.89 ; Metabolic syndrome E88.81 ; Morbid obesity with BMI of 50.0-59.9, adult Z68.43 ; Esophageal reflux 530.81 and Shortness of breath R06.02 [place] [address] [address]- 4055 Aug, [place] [address] [place] [id number] [place] [address] 90666- 7526 Aug, [place] [address] [place] [id number] [place] [address] 51292- 8663 Aug, Hypothyroidism, unspecified E03.9 [place] [address] [place] [id number] [place] [address] 53462- 1328 Aug, Routine health maintenance Z00.00 [facility] [address] [place] [id number] [place] [address] 09458 -5065 Aug, [place] [address] [place] [id number] [place] [address] 29419- 3118 31 Jul, 2016 Routine health maintenance Z00.00 ; Family history of diabetes mellitus Z83.3 ; Family history of cancer Z80.9 and Morbid obesity with BMI of 50.0-59.9, adult Z68.43 [facility] IN [place] [address] 78813 -0927 28 Jul, 2015 Allergic rhinitis J30.9 and Postnasal drip R09.82 [place] [address] 81953- 6765 18 Jul, 2015 Influenza J11.1 [facility] [place] [address] 93504 -5891 08 Jul, 2015 Dysuria R30.0 [place] [address] 63431- 9910 Apr, [place] [address] 97435- 7909 Mar, Acute upper respiratory infection, unspecified J06.9 and Hypothyroidism E03.9 [place] [address] 20701- 5035 Mar, [place] [address] 08448- 6374 Feb, Coronary artery disease I25.10 [place] [address] 17550- 0200 Feb, Left foot pain M79.672 [place] [address] 70335- 3847 Jan, UTI (urinary tract infection) 599.0 [place] [address] 79526- 1164 Jan, Urinary tract infection, site not specified 599.0 [place] [address] 88587- 3036 Jan, Urinary tract infection, site not specified 599.0 [facility] [address] [address]- 5470 Jan, [facility] [address] 3329 Dec, Headache 784.0 [facility] [address] [place] [address] 352448- 8180 Dec, Urinary tract infection, site not specified 599.0 [facility] [address] [place] [address] 247272- 0566 Dec, Urinary tract infection, site not specified 599.0 [place] [address] [place] [address] 029153- 2454 Dec, Urinary tract infection, site not specified 599.0 [place] [address] [place] [id number] [place] [address] 98890- 9817 Nov, Unspecified sleep apnea 780.57 ; Encounter for long-term ( current) use of anticoagulants V58.61 ; Routine general medical examination at health care facility V70.0 and Arthritis of both knees 716.96 [place] [address] [address]- 2152 September, Cat bite of hand 882.0 and Rectal bleeding 569.3 [place] [address] [address]- 9246 Aug, [place] [address] [address]- 1804 Aug, [place] [address] 7783 Jul, [facility] [address] [address]- 3953 Jul, [facility] [address] [address]- 7215 Jul, [facility] [place] [facility] [address] [id number] [place] [address]- 5405 Jul, [facility] [place] [facility] [address] [id number] [place] [address]- 7702 Jul, [facility] [place] [facility] [address] [id number] [place] [address]- 4522 Jul, [facility] [place] [facility] [address] [id number] [place] [address]- 6399 Jul, [facility] [place] [facility] [address] [id number] [place] [address]- 0631 Jul, [facility] [place] [facility] [address] [id number] [place] [address]- 9318 May, [facility] [place] [facility] [address] [id number] [place] [address]- 9805 May, [facility] [place] [facility] [address] [id number] [place] [address]- 2554 May, [facility] [place] [facility] [address] [id number] [place] [address]- 7817 May, [facility] [place] [facility] [address] [id number] [place] [address]- 3835 May, [facility] [place] [facility] [address] [id number] [place] [address]- 7563 May, [facility] [place] [facility] [address] [id number] [place] [address]- 9128 May, [facility] [place] [facility] [address] [id number] [place] [address]- 5341 Mar, [facility] [place] [facility] [address] [id number] [place] [address]- 6111 Mar, [facility] [place] [facility] [address] [id number] [place] [address]- 5820 Jan, [facility] [place] [facility] [address] [id number] [place] [address]- 1329 08 Jan, 2013 [facility] [place] [facility] [address] [id number] [place] [address]- 0901 08 Jan, 2013 [facility] [place] [facility] [address] [id number] [place] [address]- 6380 Jan, 2013 [facility] [place] [facility] [address] [id number] [place] [address]- 6211 Jan, 2013 [facility] [place] [facility] [address] [id number] [place] [address]- 9668 Jan, 2013 [facility] [place] [facility] [address] [id number] [place] [address]- 3611 Dec, [facility] [place] [facility] [address] [id number] [place] [address]- 5500 Dec, [facility] [place] [facility] [address] [id number] [place] [address]- 3054 Dec, [facility] [place] [facility] [address] [id number] [place] [address]- 3808 Dec, [facility] [place] [facility] [address] [id number] [place] [address]- 7686 Dec, [facility] [place] [facility] [address] [id number] [place] [address]- 4279 Dec, [facility] [place] [facility] [address] [id number] [place] [address]- 5674 Dec, [facility] [place] [facility] [address] [id number] [place] [address]- 0860 Dec, [facility] [place] [facility] [address] [id number] [place] [address]- 7025 Dec, [facility] [place] [facility] [address] [id number] [place] [address]- 5377 Dec, [facility] [place] [facility] [address] [id number] [place] [address]- 8913 Nov, [facility] [place] [facility] [address] [id number] [place] [address]- 7536 Nov, [facility] [place] [facility] [address] [id number] [place] [address]- 9060 September, [facility] [place] [facility] [address] [id number] [place] [address]- 5896 September, [facility] [place] [facility] [address] [id number] [place] [address]- 0057 September, [facility] [place] [facility] [address] [id number] [place] [address]- 5614 September, [facility] [place] [facility] [address] [id number] [place] [address]- 5846 Aug, [facility] [place] [facility] [address] [id number] [place] [address]- 7033 Aug, [facility] [place] [facility] [address] [id number] [place] [address]- 4837 Aug, [facility] [place] [facility] [address] [id number] [place] [address]- 9646 Aug, [facility] [place] [facility] [address] [id number] [place] [address]- 9022 Aug, [facility] [place] [facility] [address] [id number] [place] [address]- 8871 Aug, [facility] [place] [facility] [address] [id number] [place] [address]- 8673 Aug, [facility] [place] [facility] [address] [id number] [place] [address]- 7885 Aug, [facility] [place] [facility] [address] [id number] [place] [address]- 1297 Aug, [facility] [place] [facility] [address] [id number] [place] [address]- 1383 Aug, [facility] [place] [facility] [address] [id number] [place] [address]- 6052 Aug, [facility] [place] [facility] [address] [id number] [place] [address]- 2825 Aug, [facility] [place] [facility] [address] [id number] [place] [address]- 2846 Jul, [facility] [place] [facility] [address] [id number] [place] [address]- 3074 Jul, [facility] [place] [facility] [address] [id number] [place] [address]- 0313 Jul, [facility] [place] [facility] [address] [id number] [place] [address]- 0707 Jul, [facility] [place] [facility] [address] [id number] [place] [address]- 2420 Jul, [facility] [place] [facility] [address] [id number] [place] [address]- 0636 Jul, [facility] [place] [facility] [address] [id number] [place] [address]- 9213 Jul, [facility] [place] [facility] [address] [id number] [place] [address]- 2121 Jul, [facility] [place] [facility] [address] [id number] [place] [address]- 3907 Jul, [facility] [place] [facility] [address] [id number] [place] [address]- 9726 Jul, [facility] [place] [facility] [address] [id number] [place] [address]- 7164 Jun, [facility] [place] [facility] [address] [id number] [place] [address]- 8636 Jun, [facility] [place] [facility] [address] [id number] [place] [address]- 9306 Jun, [facility] [place] [facility] [address] [id number] [place] [address]- 8196 Jun, [facility] [place] [facility] [address] [id number] [place] [address]- 6544 Jun, [facility] [place] [facility] [address] [id number] [place] [address]- 8626 Jun, [facility] [place] [facility] [address] [id number] [place] [address]- 8376 Jun, [facility] [place] [facility] [address] [id number] [place] [address]- 9526 Jun, [facility] [place] [facility] [address] [id number] [place] [address]- 4813 Jun, [facility] [place] [facility] [address] [id number] [place] [address]- 0099 Jun, [facility] [place] [facility] [address] [id number] [place] [address]- 5952 Jun, [facility] [place] [facility] [address] [id number] [place] [address]- 3119 Jun, [facility] [place] [facility] [address] [id number] [place] [address]- 1141 May, [facility] [place] [facility] [address] [id number] [place] [address]- 6077 May, [facility] [place] [facility] [address] [id number] [place] [address]- 9106 May, [facility] [place] [facility] [address] [id number] [address]- 8062 May, [facility] [place] [facility] [address] [id number] [place] [address] May, [facility] [place] [facility] [address] [id number] [place] [address] May, [facility] [place] [facility] [address] [id number] [place] [address] May, [facility] [place] [facility] [address] [id number] [place] [address] May, [facility] [place] [facility] [address] [id number] [place] [address] May, [facility] [place] [facility] [address] [id number] [place] [address] May, [facility] [place] [facility] [address] [id number] [place] [address] May, [facility] [place] [facility] [address] [id number] [place] [address] May, [facility] [place] [facility] [address] [id number] [place] [address] May, [facility] [place] [facility] [address] [id number] [place] [address] May, [facility] [place] [facility] [address] [id number] [place] [address] May, [facility] [place] [facility] [address] [id number] [place] [address] Apr, [facility] [place] [facility] [address] [id number] [place] [address] Apr, [facility] [place] [facility] [address] [id number] [place] [address] Apr, [facility] [place] [facility] [address] [id number] [place] [address] Apr, [facility] [place] [facility] [address] [id number] [place] [address] Mar, [facility] [place] [facility] [address] [id number] [place] [address] Mar, [facility] [place] [facility] [address] [id number] [place] [address] Mar, [facility] [place] [facility] [address] [id number] [place] [address] Mar, [facility] [place] [facility] [address] [id number] [place] [address] Mar, [facility] [address] [id number] [place] [address] Mar, [facility] [place] [facility] [address] [id number] [place] [address] Mar, [facility] [address] [id number] [place] [address] Mar, [facility] [place] [facility] [address] [id number] [place] [address] Mar, [facility] [address] [id number] [place] [address]- [address] Mar, [facility] [address] [id number] [place] [address] Mar, [facility] [place] [facility] [address] [id number] [place] [address] Mar, [facility] [address] [id number] [place] [address] Feb, [facility] [place] [facility] [address] [id number] [place] [address] 18 Jan, 2013 [facility] [address] [id number] [place] [address] 17 Jan, 2013 [facility] [place] [facility] [address] [id number] [place] [address] 06 Jan, 2012 [facility] [place] [facility] [address] [id number] [place] [address] 04 Jan, 2012 [facility] [place] [facility] [address] [id number] [place] [address] Jan, [facility] [place] [facility] [address] [id number] [place] [address] Dec, [facility] [place] [facility] [address] [id number] [place] [address] Dec, [facility] [place] [facility] [address] [id number] [place] [address] Dec, [facility] [place] [facility] [address] [id number] [place] [address] Dec, [facility] [place] [facility] [address] [id number] [place] [address] Dec, [facility] [place] [facility] [address] [id number] [place] [address] Dec, [facility] [place] [facility] [address] [id number] [place] [address] Dec, [facility] [place] [facility] [address] [id number] [place] [address] Dec, [facility] [place] [facility] [address] [id number] [place] [address] Nov, [facility] [place] [facility] [address] [id number] [place] [address] Nov, [facility] [place] [facility] [address] [id number] [place] [address] Nov, [facility] [place] [facility] [address] [facility] [id number] [place] [address] Nov, [facility] [place] [facility] [address] [id number] [place] [address] Nov, [facility] [place] [facility] [address] [id number] [address] Nov, [facility] [place] [facility] [address] [id number] [place] [address] Oct, [facility] [address] [id number] [id number] Oct, [facility] [address] [id number] [id number] Oct, [facility] [address] [id number][place] [id number] Oct, [facility] [address] [id number] [place] [id number] Oct, [facility] [address] [id number] [place] [address] Oct, [facility] [address] [id number] [place] [address] Oct, [facility] [address] [id number] [place] [address] Oct, [facility] [address] [id number] [place] [address] Oct, [facility] [address] [id number] [place] [address] Oct, [facility] [address] [id number] [place] [address] Oct, [facility] [address] [id number] [place] [address] September, [facility] [address] [id number] [place] [address] Aug, [facility] [address] [id number] [place] [address] Aug, [facility] [address] [id number] [place] [address] Aug, [facility] [address] [id number] [place] [address] Aug, [facility] [address] [id number] [place] [address] 24 Jul, 2012 [facility] [place] [facility] [address] [id number] [place] [address] Jul, [facility] [place] [facility] [address] [id number] [place] [address] Jul, [facility] [place] [facility] [address] [id number] [place] [address] 05 Jul, 2012 [facility] [address] [id number] [place] [address] 04 Jul, 2012 [facility] [place] [facility] [address] [id number] [place] [address] 19 Jun, 2012 [facility] [place] [facility] [address] [id number] [place] [address] 13 Jun, 2012 [facility] [place] [facility] [address] [id number] [place] [address] Jun, [facility] [place] [facility] [address] [id number] [place] [address] May, [facility] [address] [id number] [place] [address] 24 May, 2012 [facility] [address] [id number] [place] [address] May, [facility] [place] [facility] [address] [id number] [place] [address] May, [facility] [address] [id number] [place] [address] May, [facility] [address] [id number] [place] [address] May, [facility] [address] [id number] [address] 18 Apr, 2012 [facility] [place] [facility] [address] [id number] [place] [address] 18 Apr, 2012 [facility] [place] [facility] [address] [id number] [place] [address] 13 Apr, 2012 [facility] [place] [facility] [address] [id number] [place] [address] 13 Apr, 2012 [facility] [place] [facility] [address] [id number] [place] [address] 13 Apr, 2012 [facility] [place] [facility] [address] [id number] [place] [address] Apr, [facility] [place] [facility] [address] [id number] [place] [address] Apr, [facility] [place] [facility] [address] [id number] [place] [address] Mar, [facility] [place] [facility] [address] [id number] [place] [address] Mar, [facility] [place] [facility] [address] [id number] [place] [address]60 Mar, [facility] [place] [facility] [address] [id number] [place] [address] Mar, [facility] [place] [facility] [address] [id number] [place] [address] Jan, [facility] [place] [facility] [address] [id number] [place] [address] Jan, [facility] [address] [id number] [place] [address] Jan, [facility] [place] [facility] [address] [id number] [place] [address] Jan, [facility] [id number] [id number] Dec, [facility] [place] [facility] [address] [id number] [place] [address] Dec, [facility] [id number] [id number] Dec, [facility] [place] [facility] [address] [id number] [place] [address] Dec, [facility] [place] [facility] [address] [facility] [id number] [place] [address] Dec, [facility] [place] [facility] [address] [id number] [place] [address] Dec, [facility] [place] [facility] [address] [facility] [id number] [place] [address] 30 Nov, 2011 [facility] [address] [facility] [id number] [place] [address] Nov, [facility] [address] [facility] [id number] [place] [address] Nov, IMMUNIZATIONS No Known Immunizations SOCIAL HISTORY Never Assessed REASON FOR VISIT Group PLAN OF CARE VITAL SIGNS MEDICATIONS Unknown Medications RESULTS No Results PROCEDURES Procedure Date Ordered Result Body Site Alcohol and/or drug services October 19, 2017 Alcohol and/or drug services October 19, 2017 Alcohol and/or drug services October 19, 2017 INSTRUCTIONS MEDICATIONS ADMINISTERED No Known Medications [...] Stent placed 08/19/2017 Hospitalization History Syncope- [facility] 12/2017
--- OUTSIDE RECORDS SUMMARY | 2018-07-26 22:03 | XMS REPORT ---
Author Author DOMO ANGEL Organization [facility] Address [address] 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 Active 574284052 Problem Hyperlipidemia, unspecified hyperlipidemia type E78.5 Active 71969114 Problem Morbid obesity with BMI of 50.0-59.9, adult Z68.43 Active 139036682 Problem Arthritis M19.90 Active 0675522 Problem Personal history of pulmonary embolism Z86.711 Active 441645230 Problem Gastroesophageal reflux disease without esophagitis K21.9 Active 677734340 Problem Migraine with aura and without status migrainosus, not intractable G43.109 Active 4229436 Problem Coronary artery disease I25.10 Active 20966285 Problem Intractable migraine without aura and with status migrainosus G43.011 Active 943985931 Problem Hypothyroidism E03.9 Active 02873155 Problem Renal stones N20.0 Active 41105886 Problem Acute gout involving toe of right foot, 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 Active 346308761 ALLERGIES No Information ENCOUNTERS Encounter Location Date Diagnosis [facility] [address] [facility] [id number] [address] Dec, Morbid obesity with BMI of 50.0-59.9, adult Z68.43 ; Hypothyroidism E03.9 ; Hyperlipidemia, unspecified hyperlipidemia type E78.5 ; Type 2 diabetes mellitus with diabetic neuropathic arthropathy, without long- term current use of insulin E11.610 ; Right lower quadrant abdominal pain R10.31 ; Urinary tract infection, site not specified N39.0 and Coronary artery disease I25.10 [facility] [address] [facility] [id number], [place] [address] Dec, Migraine with aura and without status migrainosus, not intractable G43.109 ; Dehydration symptoms R63.8 and BMI 50.0-59.9, adult Z68.43 [place] [address] [place] [id number] [place] [address] 30707- 8215 Oct, [place] [address] [place] [id number] [place] [address] 87266- 2810 Oct, [place] [address] [place] [id number] [place] [address] 00499- 7135 Oct, [place] [address] [place] [id number] [place] [address] 06403- 4477 September, [place] [address] [place] [id number] [place] [address] 20515- 1811 September, Type 2 diabetes mellitus with diabetic neuropathic arthropathy, 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 ; Hyperlipidemia, unspecified hyperlipidemia type E78.5 ; Personal history of pulmonary embolism Z86.711 ; Coronary artery disease I25.10 and Hypothyroidism E03.9 [place] [address] [place] [id number] [place] [address] 48623- 5123 September, [place] [address] [place] [id number] [place] [address] 76673- 3130 Aug, Type 2 diabetes mellitus with diabetic [...] without aura and with status migrainosus G43.011 [place] [address] [place] [address] 04325- 0691 Aug, [place] [address] [place] [id number] [place] [address] 91482- 8083 Aug, [facility] [address] [id number] [place] [address] 58036- 0793 Jul, Renal stones N20.0 [facility] IN [facility] [address] [id number] [place] [address] 24848 -9296 Jun, Back pain M54.9 ; Kidney stones N20.0 and BMI 50.0-59.9, adult Z68.43 [facility] [address] 57308- 6367 Jun, [facility] [address] 16549- 2905 Apr, [place] [address] 30365- 6362 Apr, [place] [address] 62542- 8450 Apr, Right foot pain M79.671 ; Acute gout involving toe of right foot, 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 and Arthritis M19.90 [facility] [address] [place] [id number] [place] [address] 63252- 1145 06 Apr, 2017 Gastroesophageal reflux disease without esophagitis K21.9 [place] [address] [place] [id number] [place] [address] 75016- 5671 16 Mar, 2017 Hypothyroidism, unspecified E03.9 [facility] [address] [place] [id number] [place] [address] 04696- 5292 Feb, [place] [address] [place] [id number] [place] [address] 43041- 7292 25 Jan, 2017 Cervicalgia of ryntzgwy-vsrnstq-bezys region M54.2 and Persistent headaches R51 [place] [address] [id number] [place] [address] 57333- 5041 20 Jan, 2017 [facility] [address] [place] [id number] [place] [address] 37879- 2194 12 Jan, 2017 Intractable migraine without aura and with status migrainosus G43.011 ; Cervical spine pain M54.2 ; Hyperlipidemia, unspecified hyperlipidemia type E78.5 ; Hypothyroidism E03.9 and Metabolic syndrome E88.81 [place] [address] [place] [id number] [place] [address] 96172- 9434 Jan, Hypothyroidism, unspecified E03.9 [place] [address] 07719- 8967 Dec, Hypothyroidism, unspecified E03.9 [place] [address] 78487- 0714 Dec, Hypothyroidism E03.[address] 47632- 8888 Nov, Laceration of left great toe w/o foreign body w/o damage to nail, initial encounter S91.112A [facility] [place] [address] 45257 -7053 Oct, Pain in left knee M25.562 and Arthritis M19.[address] 05636- 4891 Oct, Hypothyroidism, unspecified E03.9 and Hyperlipidemia, unspecified hyperlipidemia type E78.5 [place] [address] [place] [id number] [place] [address] 21049- 5568 Oct, Gastroesophageal reflux disease without esophagitis K21.9 [place] [address] [place] [id number] [place] [address] 15392- 8737 Oct, Metabolic syndrome E88.81 ; Personal history of pulmonary embolism Z86.711 ; Other specified hypothyroidism E03.8 and Hyperlipidemia, unspecified hyperlipidemia type E78.5 [place] [address] 28761- 6766 13 Oct, 2016 Personal history of pulmonary embolism Z86.711 ; Dysuria R30.0 ; Metabolic syndrome E88.81 ; Other specified hypothyroidism E03.8 ; Hyperlipidemia, unspecified hyperlipidemia type E78.5 and Morbid obesity with BMI of 50.0-59.9, adult Z68.43 [place] [address] [place] [id number] [place] [address] 14913- 8244 September, [facility] [place] [address] [place] [id number] [place] [address] 67573 -1591 September, Wrist pain, left M25.532 and Acute pain of left knee M25.562 [place] [address] 66236- 1953 Jul, Dysuria R30.[address] 34786- 3397 Jul, Dysuria R30.0 [place] [address] 52667- 1032 Jul, Left lower quadrant pain R10.32 [place] [id number] [place] [address] 02374- 6526 Jul, [place] [address] [place] [id number] [place] [address] 49051- 6970 Jul, Coronary artery disease I25.10 ; Family history of diabetes mellitus Z83.3 ; Morbid obesity with BMI of 50.0-59.9, adult Z68.43 ; Metabolic syndrome E88.81 ; Personal history of pulmonary embolism Z86.711 ; Gastroesophageal reflux disease without esophagitis K21.9 ; Hypothyroidism, unspecified E03.9 ; Hyperlipidemia, unspecified hyperlipidemia type E78.5 and Left lower quadrant pain R10.32 [facility] [address] [place] [address] 98829 -1241 Jul, [facility] [place] [id number] [place] [address] 54681 -8804 Jul, Morbid obesity with BMI of 50.0-59.9, adult Z68.43 [facility] [place] [id number] [place] [address] 10127 -7736 Jul, Generalized abdominal pain R10.84 [facility] [place] [address] [place] [id number] [place] [address] 89530 -5482 02 Jun, 2016 Muscle strain of right upper back, initial encounter S29.012A [facility] [place] [address] [place] [id number] [place] [address] 17223 -2578 May, Foreign body (FB) in soft tissue M79.5 [place] [address] 18463- 7960 Mar, Hypothyroidism, unspecified E03.9 and Arthritis M19.90 [place] [address] [id number] [place] [address] 69546- 5969 Feb, Coronary artery disease I25.10 ; Morbid obesity with BMI of 50.0-59.9, adult Z68.43 ; Metabolic syndrome E88.81 ; Gastroesophageal reflux disease without esophagitis K21.9 ; Hypothyroidism, unspecified E03.9 ; Personal history of pulmonary embolism Z86.711 and Hyperlipidemia, unspecified hyperlipidemia type E78.5 [place] [address] [place] [id number] [place] [address] 66357- 5875 Feb, [facility] [place] [address] [place] [id number] [place] [address] 40962 -0127 Jan, Acute right-sided thoracic back pain M54.6 [place] [address] [place] [id number] [place] [address] 32480- 5422 Jan, Acute pain of left knee M25.562 [place] [address] [place] [id number] [place] [address] 82026- 4075 Dec, Dysuria R30.0 ; Metabolic syndrome E88.81 ; Acute pain of left knee M25.562 ; Acute cystitis with hematuria N30.01 and Acute left eye pain H57.12 [place] [address] [place] [id number] [place] [address] 54411- 3821 Dec, [place] [address] [place] [id number] [place] [address] 10230- 0531 Dec, [place] [address] [address] 7964 Dec, Hypothyroidism, unspecified E03.9 [place] [address] [place] [address] 32871- 5711 Dec, [place] [address] [place] [id number] [place] [address] 43212- 2996 Nov, Peripheral edema R60.9 and Acute pain of left knee M25.562 [facility] [place] [address] [place] [id number] [place] [address] 17718 -7333 September, [place] [address] [place] [id number] [place] [address] 97819- 2400 September, Metabolic syndrome E88.81 and Allergy, subsequent encounter T78.40XD [facility] [place] [address] [place] [id number] [place] [address] 56970 -6479 September, Muscle strain T14.8 [place] [address] [place] [id number] [place] [address] 02127- 8977 Aug, Chest pressure R07.89 ; Metabolic syndrome E88.81 ; Morbid obesity with BMI of 50.0-59.9, adult Z68.43 ; Esophageal reflux 530.81 and Shortness of breath R06.02 [place] [address] [address] 2207 Aug, [place] [address] [place] [id number] [place] [address] 76917- 3709 Aug, [place] [address] [place] [id number] [place] [address] 37065- 3484 Aug, Hypothyroidism, unspecified E03.9 [place] [address] [place] [id number] [place] [address] 22220- 1477 Aug, Routine health maintenance Z00.00 [facility] [address] [place] [id number] [place] [address] 63929 -7522 Aug, [place] [address] [place] [id number] [place] [address] 77034- 4468 31 Jul, 2016 Routine health maintenance Z00.00 ; Family history of diabetes mellitus Z83.3 ; Family history of cancer Z80.9 and Morbid obesity with BMI of 50.0-59.9, adult Z68.43 [facility] [place] [address] 92589 -8111 28 Jul, 2015 Allergic rhinitis J30.9 and Postnasal drip R09.82 [place] [address] 64658- 6752 18 Jul, 2015 Influenza J11.1 [facility] [place] [address] 31901 -6325 08 Jul, 2015 Dysuria R30.0 [place] [address] 00799- 0329 Apr, [place] [address] 45706- 9484 Mar, Acute upper respiratory infection, unspecified J06.9 and Hypothyroidism E03.9 [place] [address] 51664- 1287 Mar, [place] [address] 45991- 9801 Feb, Coronary artery disease I25.10 [place] [address] 11739- 1477 Feb, Left foot pain M79.672 [place] [address] 16612- 3781 Jan, UTI (urinary tract infection) 599.0 [place] [address] 72342- 9058 Jan, Urinary tract infection, site not specified 599.0 [place] [address] 21784- 1343 Jan, Urinary tract infection, site not specified 599.0 [facility] [address] [address] 6213 Jan, [facility] [address] 3927 Dec, Headache 784.0 [facility] [address] [place] [address] 785606- 4209 Dec, Urinary tract infection, site not specified 599.0 [facility] [address] [place] [address] 368026- 3592 Dec, Urinary tract infection, site not specified 599.0 [place] [address] [place] [address] 353727- 5965 Dec, Urinary tract infection, site not specified 599.0 [place] [address] [place] [id number] [place] [address] 83395- 9275 Nov, Unspecified sleep apnea 780.57 ; Encounter for long-term ( current) use of anticoagulants V58.61 ; Routine general medical examination at health care facility V70.0 and Arthritis of both knees 716.96 [place] [address] [address]- 3438 September, Cat bite of hand 882.0 and Rectal bleeding 569.3 [place] [address] [address]- 1220 Aug, [place] [address] [address]- 5592 Aug, [place] [address] 7474 Jul, [facility] [address] 4851 Jul, [facility] [address] [address]- 7597 Jul, [facility] [place] [facility] [address] [id number] [place] [address]- 1401 Jul, [facility] [place] [facility] [address] [id number] [place] [address]- 4389 Jul, [facility] [place] [facility] [address] [id number] [place] [address]- 4686 Jul, [facility] [place] [facility] [address] [id number] [place] [address]- 2091 Jul, [facility] [place] [facility] [address] [id number] [place] [address]- 4589 Jul, [facility] [place] [facility] [address] [id number] [place] [address]- 5301 May, [facility] [place] [facility] [address] [id number] [place] [address]- 3646 May, [facility] [place] [facility] [address] [id number] [place] [address]- 6156 May, [facility] [place] [facility] [address] [id number] [place] [address]- 3941 May, [facility] [place] [facility] [address] [id number] [place] [address]- 8092 May, [facility] [place] [facility] [address] [id number] [place] [address]- 7534 May, [facility] [place] [facility] [address] [id number] [place] [address]- 9739 May, [facility] [place] [facility] [address] [id number] [place] [address]- 9564 Mar, [facility] [place] [facility] [address] [id number] [place] [address]- 0379 Mar, [facility] [place] [facility] [address] [id number] [place] [address]- 1485 Jan, [facility] [place] [facility] [address] [id number] [place] [address]- 3677 08 Jan, 2013 [facility] [place] [facility] [address] [id number] [place] [address]- 0853 08 Jan, 2013 [facility] [place] [facility] [address] [id number] [place] [address]- 4182 Jan, 2013 [facility] [place] [facility] [address] [id number] [place] [address]- 9365 Jan, 2013 [facility] [place] [facility] [address] [id number] [place] [address]- 6045 Jan, 2013 [facility] [place] [facility] [address] [id number] [place] [address]- 1228 Dec, [facility] [place] [facility] [address] [id number] [place] [address]- 8425 Dec, [facility] [place] [facility] [address] [id number] [place] [address]- 0353 Dec, [facility] [place] [facility] [address] [id number] [place] [address]- 4549 Dec, [facility] [place] [facility] [address] [id number] [place] [address]- 6765 Dec, [facility] [place] [facility] [address] [id number] [place] [address]- 5403 Dec, [facility] [place] [facility] [address] [id number] [place] [address]- 6331 Dec, [facility] [place] [facility] [address] [id number] [place] [address]- 8180 Dec, [facility] [place] [facility] [address] [id number] [place] [address]- 2998 Dec, [facility] [place] [facility] [address] [id number] [place] [address]- 4797 Dec, [facility] [place] [facility] [address] [id number] [place] [address]- 1170 Nov, [facility] [place] [facility] [address] [id number] [place] [address]- 4793 Nov, [facility] [place] [facility] [address] [id number] [place] [address]- 5699 September, [facility] [place] [facility] [address] [id number] [place] [address]- 6836 September, [facility] [place] [facility] [address] [id number] [place] [address]- 0637 September, [facility] [place] [facility] [address] [id number] [place] [address]- 0024 September, [facility] [place] [facility] [address] [id number] [place] [address]- 3669 Aug, [facility] [place] [facility] [address] [id number] [place] [address]- 3529 Aug, [facility] [place] [facility] [address] [id number] [place] [address]- 4971 Aug, [facility] [place] [facility] [address] [id number] [place] [address]- 7872 Aug, [facility] [place] [facility] [address] [id number] [place] [address]- 2236 Aug, [facility] [place] [facility] [address] [id number] [place] [address]- 3072 Aug, [facility] [place] [facility] [address] [id number] [place] [address]- 6917 Aug, [facility] [place] [facility] [address] [id number] [place] [address]- 4713 Aug, [facility] [place] [facility] [address] [id number] [place] [address]- 7972 Aug, [facility] [place] [facility] [address] [id number] [place] [address]- 7897 Aug, [facility] [place] [facility] [address] [id number] [place] [address]- 9260 Aug, [facility] [place] [facility] [address] [id number] [place] [address]- 4102 Aug, [facility] [place] [facility] [address] [id number] [place] [address]- 7196 Jul, [facility] [place] [facility] [address] [id number] [place] [address]- 3215 Jul, [facility] [place] [facility] [address] [id number] [place] [address]- 7126 Jul, [facility] [place] [facility] [address] [id number] [place] [address]- 8613 Jul, [facility] [place] [facility] [address] [id number] [place] [address]- 4062 Jul, [facility] [place] [facility] [address] [id number] [place] [address]- 7986 Jul, [facility] [place] [facility] [address] [id number] [place] [address]- 6147 Jul, [facility] [place] [facility] [address] [id number] [place] [address]- 4014 Jul, [facility] [place] [facility] [address] [id number] [place] [address]- 6232 Jul, [facility] [place] [facility] [address] [id number] [place] [address]- 5226 Jul, [facility] [place] [facility] [address] [id number] [place] [address]- 4146 Jun, [facility] [place] [facility] [address] [id number] [place] [address]- 0996 Jun, [facility] [place] [facility] [address] [id number] [place] [address]- 8146 Jun, [facility] [place] [facility] [address] [id number] [place] [address]- 8546 Jun, [facility] [place] [facility] [address] [id number] [place] [address]- 9776 Jun, [facility] [place] [facility] [address] [id number] [place] [address]- 3136 Jun, [facility] [place] [facility] [address] [id number] [place] [address]- 9536 Jun, [facility] [place] [facility] [address] [id number] [place] [address]- 1576 Jun, [facility] [place] [facility] [address] [id number] [place] [address]- 6130 Jun, [facility] [place] [facility] [address] [id number] [place] [address]- 1272 Jun, [facility] [place] [facility] [address] [id number] [place] [address]- 3744 Jun, [facility] [place] [facility] [address] [id number] [place] [address] Jun, [facility] [place] [facility] [address] [id number] [place] [address] May, [facility] [place] [facility] [address] [id number] [place] [address] May, [facility] [place] [facility] [address] [id number] [place] [address] May, [facility] [place] [facility] [address] [id number], [place] [address] May, [facility] [place] [facility] [address] [id number] [place] [address] May, [facility] [place] [facility] [address] [id number] [place] [address] May, [facility] [place] [facility] [address] [id number] [place] [address] May, [facility] [place] [facility] [address] [id number], [place] [address] May, [facility] [place] [facility] [address] [id number] [place] [address] May, [facility] [place] [facility] [address] [id number] [place] [address] May, [facility] [place] [facility] [address] [id number] [place] [address] May, [facility] [place] [facility] [address] [id number] [place] [address] May, [facility] [place] [facility] [address] [id number] [place] [address]- [address] May, [facility] [place] [facility] [address] [id number] [place] [address] May, [facility] [place] [facility] [address] [id number] [place] [address]- [address] May, [facility] [place] [facility] [address] [id number] [place] [address]- [address] Apr, [facility] [place] [facility] [address] [id number] [place] [address] Apr, [facility] [place] [facility] [address] [id number] [place] [address]- [address] Apr, [facility] [place] [facility] [address] [id number], [place] [address] Apr, [facility] [place] [facility] [address] [id number], [place] [address] Mar, [facility] [place] [facility] [address] [id number] [place] [address]- [address] Mar, [facility] [place] [facility] [address] [id number] [place] [address] Mar, [facility] [place] [facility] [address] [id number] [place] [address]- [address] Mar, [facility] [place] [facility] [address] [id number] [place] [address] Mar, [facility] [address] [id number] [place] [address] Mar, [facility] [place] [facility] [address] [id number] [place] [address] Mar, [facility] [address] [id number] [place] [address] Mar, [facility] [place] [facility] [address] [id number] [place] [address]- [address] Mar, [facility] [address] [id number] [place] [address]- [address] Mar, [facility] [address] [id number] [place] [address] Mar, [facility] [place] [facility] [address] [id number] [place] [address] Mar, [facility] [address] [id number] [place] [address] Feb, [facility] [place] [facility] [address] [id number] [place] [address] 18 Jan, 2013 [facility] [address] [id number] [place] [address] 17 Jan, 2013 [facility] [place] [facility] [address] [id number] [place] [address] 06 Jan, 2012 [facility] [place] [facility] [address] [id number] [place] [address]- [address] 04 Jan, 2012 [facility] [place] [facility] [address] [id number] [place] [address] Jan, [facility] [place] [facility] [address] [id number] [place] [address] Dec, [facility] [place] [facility] [address] [id number] [place] [address] Dec, [facility] [place] [facility] [address] [id number] [place] [address] Dec, [facility] [place] [facility] [address] [id number] [place] [address] Dec, [facility] [place] [facility] [address] [id number] [place] [address] Dec, [facility] [place] [facility] [address] [id number] [place] [address] Dec, [facility] [place] [facility] [address] [id number] [place] [address] Dec, [facility] [place] [facility] [address] [id number] [place] [address] Dec, [facility] [place] [facility] [address] [id number] [place] [address] Nov, [facility] [place] [facility] [address] [id number] [place] [address] Nov, [facility] [place] [facility] [address] [id number] [place] [address] Nov, [facility] [place] [facility] [address] [facility] [id number] [place] [address] Nov, [facility] [place] [facility] [address] [id number] [place] [address] Nov, [facility] [place] [facility] [address] [id number], [place] [address] Nov, [facility] [place] [facility] [address] [id number] [place] [address] Oct, [facility] [address] [id number] [id number] Oct, [facility] [address] [id number] [id number] Oct, [facility] [address] [id number][place] [id number] Oct, [facility] [address] [id number] [place] [id number] Oct, [facility] [address] [id number] [place] [address] Oct, [facility] [address] [id number] [place] [address] Oct, [facility] [address] [id number] [place] [address] Oct, [facility] [address] [id number] [place] [address] Oct, [facility] [address] [id number] [place] [address] Oct, [facility] [address] [id number] [place] [address] Oct, [facility] [address] [id number] [place] [address] September, [facility] [address] [id number] [place] [address] Aug, [facility] [address] [id number] [place] [address] Aug, [facility] [address] [id number] [place] [address] Aug, [facility] [address] [id number] [place] [address] Aug, [facility] [address] [id number] [place] [address] 24 Jul, 2012 [facility] [place] [facility] [address] [id number] [place] [address] Jul, [facility] [place] [facility] [address] [id number] [place] [address] Jul, [facility] [place] [facility] [address] [id number] [place] [address] 05 Jul, 2012 [facility] [address] [id number] [place] [address] 04 Jul, 2012 [facility] [place] [facility] [address] [id number] [place] [address] 19 Jun, 2012 [facility] [place] [facility] [address] [id number] [place] [address] 13 Jun, 2012 [facility] [place] [facility] [address] [id number] [place] [address] Jun, [facility] [place] [facility] [address] [id number] [place] [address] May, [facility] [address] [id number] [place] [address] 24 May, 2012 [facility] [address] [id number] [place] [address] May, [facility] [place] [facility] [address] [id number] [place] [address] May, [facility] [address] [id number] [place] [address] May, [facility] [address] [id number] [place] [address] May, [facility] [address] [id number], [place] [address] 18 Apr, 2012 [facility] [place] [facility] [address] [id number], [place] [address] 18 Apr, 2012 [facility] [place] [facility] [address] [id number] [place] [address] 13 Apr, 2012 [facility] [place] [facility] [address] [id number] [place] [address] 13 Apr, 2012 [facility] [place] [facility] [address] [id number] [place] [address] 13 Apr, 2012 [facility] [place] [facility] [address] [id number] [place] [address] Apr, [facility] [place] [facility] [address] [id number] [place] [address] Apr, [facility] [place] [facility] [address] [id number] [place] [address] Mar, [facility] [place] [facility] [address] [id number] [place] [address] Mar, [facility] [place] [facility] [address] [id number] [place] [address] Mar, [facility] [place] [facility] [address] [id number] [place] [address] Mar, [facility] [place] [facility] [address] [id number] [place] [address] Jan, [facility] [place] [facility] [address] [id number] [place] [address] Jan, [facility] [address] [id number] [place] [address] Jan, [facility] [place] [facility] [address] [id number] [place] [address] Jan, [facility] [id number] [id number] Dec, [facility] [place] [facility] [address] [id number] [place] [address] Dec, [facility] [id number] [id number] Dec, [facility] [place] [facility] [address] [id number] [place] [address] Dec, [facility] [place] [facility] [address] [facility] [id number] [place] [address] Dec, [facility] [place] [facility] [address] [id number] [place] [address] Dec, [facility] [place] [facility] [address] [facility] [id number] [place] [address] 30 Nov, 2011 [facility] [address] [facility] [id number] [place] [address] Nov, [facility] [address] [facility] [id number] [place] [address] Nov, IMMUNIZATIONS No Known Immunizations SOCIAL HISTORY Never Assessed REASON FOR VISIT Group PLAN OF CARE VITAL SIGNS MEDICATIONS Unknown Medications RESULTS No Results PROCEDURES Procedure Date Ordered Result Body Site Alcohol and/or drug services October 26, 2017 INSTRUCTIONS MEDICATIONS ADMINISTERED No Known Medications [...]
--- OUTSIDE RECORDS SUMMARY | 2018-07-26 22:04 | XMS REPORT ---
Author Author YARITZA PAYAL Organization 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 Active 529380413 Problem Hyperlipidemia, unspecified hyperlipidemia type E78.5 Active 99669328 Problem Morbid obesity with BMI of 50.0-59.9, adult Z68.43 Active 509374755 Problem Arthritis M19.90 Active 3798269 Problem Personal history of pulmonary embolism Z86.711 Active 205136122 Problem Gastroesophageal reflux disease without esophagitis K21.9 Active 436990357 Problem Migraine with aura and without status migrainosus, not intractable G43.109 Active 7465762 Problem Coronary artery disease I25.10 Active 18236605 Problem Intractable migraine without aura and with status migrainosus G43.011 Active 558624659 Problem Hypothyroidism E03.9 Active 92594658 Problem Renal stones N20.0 Active 70942681 Problem Acute gout involving toe of right foot, 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 Active 583684198 ALLERGIES No Information ENCOUNTERS Encounter Location Date Diagnosis [facility] [address] [id number], [place] [address] Dec, [facility] [address] [id number], [place] [address] Dec, Migraine with aura and without status migrainosus, not intractable G43.109 ; Dehydration symptoms R63.8 and BMI 50.0-59.[address], [address] [facility] [address] [id number], [place] [address] Oct, [facility] [id number] [place] [address] 06116- 4316 Oct, [place] [id number] [place] [address] 45217- 1096 Oct, 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 ; Hyperlipidemia, unspecified hyperlipidemia type E78.5 ; Personal history of pulmonary embolism Z86.711 ; Coronary artery disease I25.10 and Hypothyroidism E03.9 [place] [id number] [place] [address] 33412- 0069 September, [place] [id number] [place] [address] 88256- 4800 Aug, Type 2 diabetes mellitus with diabetic [...] without aura and with status migrainosus G43.011 [place] [id number] [place] [address] 24830- 3870 Aug, [place] [id number] [place] [address] 25108- 0985 Aug, [place] [id number] [place] [address] 96844- 0556 Jul, Renal stones N20.0 [facility] [id number] [place] [address] 95603 -5934 Jun, Back pain M54.9 ; Kidney stones N20.0 and BMI 50.0-59.9, adult Z68.43 [place] [id number] [place] [address] 09229- 3301 Jun, [place] [id number] [place] [address] 56763- 2847 Apr, [place] [address] 41184- 5809 Apr, [place] [address] 49228- 3235 Apr, Right foot pain M79.671 ; Acute gout involving toe of right foot, 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 and Arthritis M19.90 [place] [address] 48484- 7023 06 Apr, 2017 Gastroesophageal reflux disease without esophagitis K21.9 [place] [address] 44617- 3208 16 Mar, 2017 Hypothyroidism, unspecified E03.9 [place] [id number] [place] [address] 77274- 8032 Feb, [place] [id number] [place] [address] 07442- 7315 25 Jan, 2017 Cervicalgia of vbaumoxf-jfjqxhm-yvzcp region M54.2 and Persistent headaches R51 [place] [id number] [place] [address] 54247- 4675 Jan, [place] [id number] [place] [address] 75433- 0998 12 Jan, 2017 Intractable migraine without aura and with status migrainosus G43.011 ; Cervical spine pain M54.2 ; Hyperlipidemia, unspecified hyperlipidemia type E78.5 ; Hypothyroidism E03.9 and Metabolic syndrome E88.81 [place] [id number] [place] [address] 06362- 8274 11 Jan, 2017 Hypothyroidism, unspecified E03.9 [place] [id number] [place] [address] 33446- 3850 Dec, Hypothyroidism, unspecified E03.9 [place] [id number] [place] [address] 97038- 0465 Dec, Hypothyroidism E03.9 [place] [id number] [place] [address] 65055- 0409 Nov, Laceration of left great toe w/o foreign body w/o damage to nail, initial encounter S91.112A [facility] [address] [place] [id number] [place] [address] 31694 -2613 Oct, Pain in left knee M25.562 and Arthritis M19.[address] 13048- 3863 Oct, Hypothyroidism, unspecified E03.9 and Hyperlipidemia, unspecified hyperlipidemia type E78.5 [place] [id number] [place] [address] 72977- 2994 Oct, Gastroesophageal reflux disease without esophagitis K21.9 [place] [id number] [place] [address] 87783- 8356 14 Oct, 2016 Metabolic syndrome E88.81 ; Personal history of pulmonary embolism Z86.711 ; Other specified hypothyroidism E03.8 and Hyperlipidemia, unspecified hyperlipidemia type E78.5 [place] [id number] [place] [address] 29068- 0946 13 Oct, 2016 Personal history of pulmonary embolism Z86.711 ; Dysuria R30.0 ; Metabolic syndrome E88.81 ; Other specified hypothyroidism E03.8 ; Hyperlipidemia, unspecified hyperlipidemia type E78.5 and Morbid obesity with BMI of 50.0-59.9, adult Z68.43 [place] [id number] [place] [address] 44840- 1167 September, [facility] [address] [place] [id number] [place] [address] 61284 -0155 September, Wrist pain, left M25.532 and Acute pain of left knee M25.562 [place] [id number] [place] [address] 81248- 2467 Jul, Dysuria R30.0 [place] [id number] [place] [address] 23927- 2524 Jul, Dysuria R30.0 [place] [address] 03319- 2990 Jul, Left lower quadrant pain R10.32 [place] [id number] [place] [address] 27243- 4851 Jul, [place] [address] 56262- 5764 Jul, Coronary artery disease I25.10 ; Family history of diabetes mellitus Z83.3 ; Morbid obesity with BMI of 50.0-59.9, adult Z68.43 ; Metabolic syndrome E88.81 ; Personal history of pulmonary embolism Z86.711 ; Gastroesophageal reflux disease without esophagitis K21.9 ; Hypothyroidism, unspecified E03.9 ; Hyperlipidemia, unspecified hyperlipidemia type E78.5 and Left lower quadrant pain R10.32 [facility] [id number] [place] [address] 59286 -9776 Jul, [facility] [id number] [place] [address] 58698 -0826 Jul, Morbid obesity with BMI of 50.0-59.9, adult Z68.43 [facility] [id number] [place] [address] 45352 -2232 Jul, Generalized abdominal pain R10.84 [facility] [id number] [place] [address] 33180 -6555 Jun, Muscle strain of right upper back, initial encounter S29.012A [facility] [id number] [place] [address] 15627 -2818 16 Maldonado, 2017 Foreign body (FB) in soft tissue M79.5 [place] [id number] [place] [address] 18289- 8961 Mar, Hypothyroidism, unspecified E03.9 and Arthritis M19.90 [place] [id number] [place] [address] 14819- 6907 13 Feb, 2016 Coronary artery disease I25.10 ; Morbid obesity with BMI of 50.0-59.9, adult Z68.43 ; Metabolic syndrome E88.81 ; Gastroesophageal reflux disease without esophagitis K21.9 ; Hypothyroidism, unspecified E03.9 ; Personal history of pulmonary embolism Z86.711 and Hyperlipidemia, unspecified hyperlipidemia type E78.5 [place] [id number] [place] [address] 00066- 3474 10 Feb, 2016 [facility] [id number] [place] [address] 05486 -0442 12 Jan, 2016 Acute right-sided thoracic back pain M54.6 [place] [id number] [place] [address] 53272- 9213 Jan, Acute pain of left knee M25.562 [place] [id number] [place] [address] 18465- 7867 Dec, Dysuria R30.0 ; Metabolic syndrome E88.81 ; Acute pain of left knee M25.562 ; Acute cystitis with hematuria N30.01 and Acute left eye pain H57.12 [place] [id number] [place] [address] 65912- 9663 Dec, [place] [id number] [place] [address] 78999- 5587 Dec, [place] [id number] [place] [address] 87469- 4801 Dec, Hypothyroidism, unspecified E03.9 [place] [id number] [place] [address] 39338- 1936 Dec, [facility] [place] [address], [place] [address]- 0769 Nov, Peripheral edema R60.9 and Acute pain of left knee M25.562 [facility] [id number] [place] [address] 06226 -4807 September, [place] [id number] [place] [address] 76045- 3413 September, Metabolic syndrome E88.81 and Allergy, subsequent encounter T78.40XD [facility] [address] [place] [address] 20548 -8142 September, Muscle strain T14.8 [place] [id number] [place] [address] 34889- 8946 Aug, Chest pressure R07.89 ; Metabolic syndrome E88.81 ; Morbid obesity with BMI of 50.0-59.9, adult Z68.43 ; Esophageal reflux 530.81 and Shortness of breath R06.[address] [place] [address] 58151- 5987 Aug, [place] [id number] [place] [address] 83142- 0572 Aug, [place] [id number] [place] [address] 79870- 6762 Aug, Hypothyroidism, unspecified E03.9 [place] [id number] [place] [address] 23751- 7629 Aug, Routine health maintenance Z00.00 [facility] [address] [place] [address] 27004 -9200 Aug, [place] [id number] [place] [address] 55107- 7285 Jul, Routine health maintenance Z00.00 ; Family history of diabetes mellitus Z83.3 ; Family history of cancer Z80.9 and Morbid obesity with BMI of 50.0-59.9, adult Z68.43 [facility] [address] [place] [address] 66707 -4324 28 Jul, 2015 Allergic rhinitis J30.9 and Postnasal drip R09.82 [facility] [id number] [place] [address] 17815- 2267 18 Jul, 2015 Influenza J11.1 [facility] [id number] [place] [address] 11582 -0464 08 Jul, [address] [facility] [id number] [place] [address] 27551- 6498 Apr, [place] [address] 17376- 3217 Mar, Acute upper respiratory infection, unspecified J06.9 and Hypothyroidism E03.9 [place] [id number] [place] [address] 17376- 8355 Mar, [place] [id number] [place] [address] 37234- 0355 Feb, Coronary artery disease I25.10 [place] [id number] [place] [address] 40003- 8488 Feb, Left foot pain M79.672 [place] [id number] [place] [address] 47988- 9833 Jan, UTI (urinary tract infection) 599.0 [place] [id number] [place] [address] 60188- 9213 Jan, Urinary tract infection, site not specified 599.0 [facility] [id number] [place] [address] 87053- 6359 Jan, Urinary tract infection, site not specified 599.0 [facility] [id number] [place] [address] 23445- 8857 Jan, [facility] [id number] [place] [address] 37826- 9226 Dec, Headache 784.0 [facility] [address], [place] [address]- 5171 Dec, Urinary tract infection, site not specified 599.0 [facility] [address] [place] [address] 26726- 1622 Dec, Urinary tract infection, site not specified 599.0 [facility] [address] [place] [address] 27596- 1577 Dec, Urinary tract infection, site not specified 599.0 [facility] [address] [place] [address] 06126- 5361 Nov, Unspecified sleep apnea 780.57 ; Encounter for long-term ( current) use of anticoagulants V58.61 ; Routine general medical examination at [facility] care facility V70.0 and Arthritis of both knees 716.96 [facility] [id number] [place] [address] 58334- 7165 September, Cat bite of hand 882.0 and Rectal bleeding 569.3 [facility] [address], [place] [address]- 1267 Aug, [facility] [address] [place] [address] 49089- 4314 Aug, [facility] [address] [address] 7744 Jul, [facility] [address], [place] [address]- 9671 Jul, [facility] [address], [place] [address]- 4632 Jul, [facility] [id number] [place] [address] 73073- 3047 Jul, [facility] [address], [place] [address]- 2426 Jul, [facility] [id number] [place] [address] 56765- 1237 Jul, [facility] [place] [facility] [address] [id number] [place] [address]- 7983 Jul, [facility] [place] [facility] [address] [id number] [place] [address]- 2770 Jul, [facility] [place] [facility] [address] [id number] [place] [address]- 8056 May, [facility] [place] [facility] [address] [id number] [place] [address]- 7592 May, [facility] [place] [facility] [address] [id number] [place] [address]- 7248 May, [facility] [place] [facility] [address] [id number] [place] [address]- 4377 May, [facility] [place] [facility] [address] [id number] [place] [address]- 2117 May, [facility] [place] [facility] [address] [id number] [place] [address]- 0060 May, [facility] [place] [facility] [address] [id number] [place] [address]- 2230 May, [facility] [place] [facility] [address] [facility] [id number] [place] [address]- 8194 Mar, [facility] [place] [facility] [address] [id number], [place] [address]- 5892 Mar, [facility] [place] [facility] [address] [id number], [place] [address]- 4013 Jan, [facility] [place] [facility] [address] [id number] [place] [address]- 6956 Jan, [facility] [place] [facility] [address] [id number] [place] [address]- 5457 Jan, [facility] [place] [facility] [address] [id number] [place] [address]- 0227 Jan, [facility] [place] [facility] [address] [id number] [place] [address]- 5198 Jan, [facility] [place] [facility] [address] [id number] [place] [address]- 3680 Jan, [facility] [place] [facility] [address] [id number] [place] [address]- 2776 Dec, [facility] [place] [facility] [address] [id number] [place] [address]- 6499 Dec, [facility] [place] [facility] [address] [id number] [place] [address]- 8632 Dec, [facility] [place] [facility] [address] [id number] [place] [address]- 6845 Dec, [facility] [place] [facility] [address] [id number] [place] [address]- 3487 Dec, [facility] [place] [facility] [address] [id number] [place] [address]- 5793 Dec, [facility] [place] [facility] [address] [id number] [place] [address]- 8369 Dec, [facility] [place] [facility] [address] [id number] [place] [address]- 1362 Dec, [facility] [place] [facility] [address] [id number] [place] [address]- 2081 Dec, [facility] [place] [facility] [address] [id number] [place] [address]- 8211 Dec, [facility] [place] [facility] [address] [id number] [place] [address]- 6770 Nov, [facility] [place] [facility] [address] [id number] [place] [address]- 2855 Nov, [facility] [place] [facility] [address] [id number] [place] [address]- 7471 September, [facility] [place] [facility] [address] [id number] [place] [address]- 9416 September, [facility] [place] [facility] [address] [id number] [place] [address]- 0707 September, [facility] [place] [facility] [address] [id number] [place] [address]- 1670 September, [facility] [place] [facility] [address] [id number] [place] [address]- 7962 Aug, [facility] [place] [facility] [address] [id number] [place] [address]- 7852 Aug, [facility] [place] [facility] [address] [id number] [place] [address]- 7247 Aug, [facility] [place] [facility] [address] [id number] [place] [address]- 9875 Aug, [facility] [place] [facility] [address] [id number] [place] [address]- 4729 Aug, [facility] [place] [facility] [address] [id number] [place] [address]- 7455 Aug, [facility] [place] [facility] [address] [id number] [place] [address]- 2848 Aug, [facility] [place] [facility] [address] [id number] [place] [address]- 3718 Aug, [facility] [place] [facility] [address] [id number] [place] [address]- 5663 Aug, [facility] [place] [facility] [address] [id number], [place] [address]- 9834 Aug, [facility] [place] [facility] [address] [id number] [place] [address]- 4829 Aug, [facility] [place] [facility] [address] [id number] [place] [address]- 2664 Aug, [facility] [place] [facility] [address] [id number] [place] [address]- 7589 Jul, [facility] [place] [facility] [address] [id number] [place] [address]- 4928 20 Jul, 2013 [facility] [place] [facility] [address] [id number] [place] [address]- 0256 Jul, [facility] [place] [facility] [address] [id number] [place] 0236 Jul, [facility] [place] [facility] [address] [id number] [place] [address]- 7956 Jul, [facility] [place] [facility] [address] [id number] [place] [address]- 4317 Jul, [facility] [place] [facility] [address] [id number] [place] [address]- 6305 05 Jul, 2013 [facility] [place] [facility] [address] [id number] [place] [address]- 8475 Jul, [facility] [place] [facility] [address] [id number] [place] [address]- 4410 Jul, [facility] [place] [facility] [address] [id number] [place] [address]- 3436 Jul, [facility] [place] [facility] [address] [id number] [place] [address]- 4422 Jun, [facility] [place] [facility] [address] [facility] [id number] [place] [address]- 1806 28 Jun, 2013 [facility] [place] [facility] [address] [id number] [place] [address]- 9946 17 Jun, 2013 [facility] [place] [facility] [address] [facility] [id number] [place] [address]- 6646 17 Jun, 2013 [facility] [place] [facility] [address] [id number] [place] 0612 Jun, [facility] [place] [facility] [address] [facility] [id number] [place] [address]- 0996 Jun, [facility] [place] [facility] [address] [facility] [id number] [place] [address]- 6130 Jun, [facility] [place] [facility] [address] [id number] [place] [address]- 1169 Jun, [facility] [place] [facility] [address] [id number] [place] [address]- 6411 Jun, [facility] [place] [facility] [address] [id number] [place] 5880 Jun, [facility] [place] [facility] [address] [id number] [place] [address]- 6060 Jun, [facility] [place] [facility] [address] [id number] [place] [address]- 7904 Jun, [facility] [place] [facility] [address] [id number] [place] [address]- 7963 May, [facility] [place] [facility] [address] [id number] [place] [address]- 3788 May, [facility] [place] [facility] [address] [id number] [place] [address] May, [facility] [place] [facility] [address] [id number] [place] [address] May, [facility] [place] [facility] [address] [id number] [place] [address] May, [facility] [place] [facility] [address] [id number] [place] [address] May, [facility] [place] [facility] [address] [id number] [place] [address] May, [facility] [place] [facility] [address] [id number] [place] [address] May, [facility] [place] [facility] [address] [id number] [place] [address] May, [facility] [place] [facility] [address] [id number] [place] [address] May, [facility] [place] [facility] [address] [id number] [place] [address] 08 May, 2013 [facility] [place] [address] [id number] [place] [address] May, [facility] [address] [id number] [place] [address] May, [facility] [address] [id number] [place] [address] May, [facility] [address] [id number] [place] [address] May, [facility] [address] [id number] [place] [address] Apr, [facility] [address] [id number] [place] [address] Apr, [facility] [address] [id number] [place] [address] Apr, [facility] [address] [id number] [place] [address] Apr, [facility] [address] [id number] [place] [address] Mar, [facility] [address] [id number] [place] [address] Mar, [facility] [address] [id number] [place] [address] Mar, [facility] [address] [id number] [place] [address] Mar, [facility] [place] [facility] [address] [id number] [place] [address] Mar, [facility] [address] [id number] [place] [address] Mar, [facility] [address] [id number] [place] [address] Mar, [facility] [place] [facility] [address] [id number] [place] [address]- [address] Mar, [facility] [place] [facility] [address] [id number] [place] [address] Mar, [facility] [place] [facility] [address] [id number] [place] [address] Mar, [facility] [place] [facility] [address] [id number] [place] [address] Mar, [facility] [place] [facility] [address] [id number] [place] [address]- [address] Mar, [facility] [place] [facility] [address] [id number] [place] [address] Feb, [facility] [place] [facility] [address] [id number] [place] [address] 18 Jan, 2013 [facility] [place] [facility] [address] [id number] [place] [address] 17 Jan, 2013 [facility] [place] [facility] [address] [id number] [place] [address] 06 Jan, 2013 [facility] [place] [facility] [address] [id number], [place] [address] 04 Jan, 2013 [facility] [place] [facility] [address] [id number], [place] [address] Jan, [facility] [place] [facility] [address] [id number], [place] [address] Dec, [facility] [place] [facility] [address] [id number] [place] [address] Dec, [facility] [place] [facility] [address] [id number] [place] [address] Dec, [facility] [place] [facility] [address] [id number], [place] [address] Dec, [facility] [place] [facility] [address] [id number], [place] [address] Dec, [facility] [place] [facility] [address] [id number] [place] [address] Dec, [facility] [place] [facility] [address] [facility] [id number] [place] [address] Dec, [facility] [place] [facility] [address] [facility] [id number] [place] [address] Dec, [facility] [place] [facility] [address] [facility] [id number] [place] [address] Nov, [facility] [place] [facility] [address] [facility] [id number] [place] [address] Nov, [facility] [place] [facility] [address] [facility] [id number] [place] [address] Nov, [facility] [place] [facility] [address] [facility] [id number] [place] [address] Nov, [facility] [place] [facility] [address] [facility] [id number] [place] [address] Nov, [facility] [place] [facility] [address] [facility] [id number] [place] [address] Nov, [facility] [place] [facility] [address] [facility] [id number] [place] [address] 69[address] Oct, [facility] [address] [facility] [id number] [id number] Oct, [facility] [address] [id number] [id number] Oct, [facility] [address] [id number] [place] [id number] Oct, [facility] [address] [facility] [id number] [place] [id number] Oct, [facility] [place] [facility] [address] [facility] [id number] [place] [address] Oct, [facility] [place] [facility] [address] [facility] [id number] [place] [address]656 Oct, [facility] [address] [id number] [place] [address]689 Oct, [facility] [place] [facility] [address] [id number] [place] [address] Oct, [facility] [place] [facility] [address] [id number] [place] [address] Oct, [facility] [place] [facility] [address] [id number] [place] [address] Oct, [facility] [place] [facility] [address] [id number] [place] [address]69 September, [facility] [place] [facility] [address] [id number] [place] [address] Aug, [facility] [place] [facility] [address] [id number] [place] [address] Aug, [facility] [place] [facility] [address] [id number] [place] [address] Aug, [facility] [place] [facility] [address] [id number] [place] [address]228 Aug, [facility] [place] [facility] [address] [id number] [place] [address] Jul, [facility] [place] [facility] [address] [id number], [place] [address] Jul, [facility] [place] [facility] [address] [id number], [place] [address] Jul, [facility] [place] [facility] [address] [id number] [place] [address]179 Jul, [facility] [place] [facility] [address] [id number] [place] [address]94 Jul, [facility] [place] [facility] [address] [id number] [place] [address] Jun, [facility] [place] [facility] [address] [id number] [place] [address] 1154 13 Jun, 2012 [facility] [address] [id number] [place] [address] 11 Jun, 2012 [facility] [address] [id number] [place] [address] May, [facility] [address] [id number] [place] [address] 24 May, 2012 [facility] [address] [id number] [place] [address] 14 May, 2012 [facility] [address] [id number] [place] [address] May, [facility] [address] [id number] [place] [address] May, [facility] [address] [id number] [place] [address] May, [facility] [address] [id number] [place] [address]- [address]874 18 Apr, 2012 [facility] [address] [id number] [place] [address] 18 Apr, 2012 [facility] [address] [id number] [place] [address]- 6686 13 Apr, 2012 [facility] [address] [id number] [place] [address]- [address]13 13 Apr, 2012 [facility] [address] [id number] [place] [address]- [address]671 13 Apr, 2012 [facility] [address] [id number] [place] [address]- 1353 11 Apr, 2012 [facility] [address] [id number] [place] [address]- [address] 11 Apr, 2012 [facility] [address] [id number] [place] [address] Mar, [facility] [address] [id number] [place] [address] Mar, [facility] [place] [facility] [address] [id number] [place] [address] 2656 Mar, [facility] [place] [facility] [address] [id number] [place] [address] 1566 Mar, [facility] [place] [facility] [address] [id number] [place] [address] 8656 Jan, [facility] [place] [facility] [address] [id number] [place] [address]69 Jan, [facility] [place] [facility] [address] [id number] [place] [address]- 1776 Jan, [facility] [address] [id number] [place] [address] 1836 Jan, [facility] [address] [id number] [id number] Dec, [facility] [address] [id number] [place] [address] Dec, [facility] [address] [id number] [id number] Dec, [facility] [address] [id number] [place] [address]- 4416 Dec, [facility] [place] [facility] [address] [id number] [place] [address]- 1016 Dec, [facility] [place] [facility] [address] [id number] [place] [address] 2546 Dec, [facility] [place] [facility] [address] [id number] [place] [address]- 8306 Nov, [facility] [place] [facility] [address] [id number] [place] [address]- [address]116 Nov, [facility] [place] [facility] [address] [id number] [place] [address]- 3058 Nov, IMMUNIZATIONS No Known Immunizations SOCIAL HISTORY Never Assessed REASON FOR VISIT Requests return call PLAN OF CARE VITAL SIGNS MEDICATIONS Unknown [...]
--- OUTSIDE RECORDS SUMMARY | 2018-07-26 22:04 | XMS REPORT ---
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 Active 744446337 Problem Hyperlipidemia, unspecified hyperlipidemia type E78.5 Active 21725785 Problem Morbid obesity with BMI of 50.0-59.9, adult Z68.43 Active 396684334 Problem Arthritis M19.90 Active 8907902 Problem Personal history of pulmonary embolism Z86.711 Active 478522210 Problem Gastroesophageal reflux disease without esophagitis K21.9 Active 061878221 Problem Migraine with aura and without status migrainosus, not intractable G43.109 Active 6158170 Problem Coronary artery disease I25.10 Active 30666583 Problem Intractable migraine without aura and with status migrainosus G43.011 Active 488204988 Problem Hypothyroidism E03.9 Active 36005363 Problem Renal stones N20.0 Active 27227782 Problem Acute gout involving toe of right foot, 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 Active 085049246 ALLERGIES No Information ENCOUNTERS Encounter Location Date Diagnosis [facility] [id number], [place] [address] Dec, [facility] [id number], [place] [address] Dec, Migraine with aura and without status migrainosus, not intractable G43.109 ; Dehydration symptoms R63.8 and BMI 50.0-59.9, adult Z68.43 [facility] [id number], [place] [address] Oct, [facility] [id number] [place] [address] 14900- 5877 Oct, [place] [id number] [place] [address] 40263- 7481 Oct, [facility] [id number] [place] [address] 58590- 2680 September, [place] [id number] [place] [address] 06952- 7058 September, Type 2 diabetes mellitus with diabetic neuropathic arthropathy, 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 ; Hyperlipidemia, unspecified hyperlipidemia type E78.5 ; Personal history of pulmonary embolism Z86.711 ; Coronary artery disease I25.10 and Hypothyroidism E03.9 [place] [id number] [place] [address] 27368- 9044 September, [place] [id number] [place] [address] 01241- 2027 Aug, Type 2 diabetes mellitus with diabetic [...] without aura and with status migrainosus G43.011 [place] [id number] [place] [address] 18786- 0816 Aug, [place] [id number] [place] [address] 71492- 2314 Aug, [place] [id number] [place] [address] 20773- 9418 Jul, Renal stones N20.0 [facility]ALK IN [facility] [id number] [place] [address] 87690 -9288 Jun, Back pain M54.9 ; Kidney stones N20.0 and BMI 50.0-59.9, adult Z68.43 [place] [id number] [place] [address] 25987- 9263 Jun, [place] [id number] [place] [address] 41168- 5780 Apr, [place] [address] 0[address]36- 7688 Apr, [place] [address] 16950- 8302 Apr, Right foot pain M79.671 ; Acute gout involving toe of right foot, 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 and Arthritis M19.90 [place] [address] 62296- 5325 06 Apr, 2017 Gastroesophageal reflux disease without esophagitis K21.9 [place] [address] 83557- 5940 16 Mar, 2017 Hypothyroidism, unspecified E03.9 [place] [id number] [place] [address] 50330- 0755 Feb, [place] [id number] [place] [address] 97569- 3890 25 Jan, 2017 Cervicalgia of abdhnujx-holwgwk-batoc region M54.2 and Persistent headaches R51 [place] [id number] [place] [address] 98581- 6594 Jan, [place] [id number] [place] [address] 79709- 8012 12 Jan, 2017 Intractable migraine without aura and with status migrainosus G43.011 ; Cervical spine pain M54.2 ; Hyperlipidemia, unspecified hyperlipidemia type E78.5 ; Hypothyroidism E03.9 and Metabolic syndrome E88.81 [place] [id number] [place] [address] 68485- 6274 11 Jan, 2017 Hypothyroidism, unspecified E03.9 [place] [id number] [place] [address] 83557- 4124 Dec, Hypothyroidism, unspecified E03.9 [place] [id number] [place] [address] 33379- 3342 Dec, Hypothyroidism E03.9 [place] [id number] [place] [address] 70702- 7859 Nov, Laceration of left great toe w/o foreign body w/o damage to nail, initial encounter S91.112A [facility] [address] [place] [id number] [place] [address] 16748 -0856 Oct, Pain in left knee M25.562 and Arthritis M19.[address] 07794- 3968 Oct, Hypothyroidism, unspecified E03.9 and Hyperlipidemia, unspecified hyperlipidemia type E78.5 [place] [id number] [place] [address] 50680- 8524 Oct, Gastroesophageal reflux disease without esophagitis K21.9 [place] [id number] [place] [address] 93532- 6903 14 Oct, 2016 Metabolic syndrome E88.81 ; Personal history of pulmonary embolism Z86.711 ; Other specified hypothyroidism E03.8 and Hyperlipidemia, unspecified hyperlipidemia type E78.5 [id number] [place] [address] 62737- 3607 13 Oct, 2016 Personal history of pulmonary embolism Z86.711 ; Dysuria R30.0 ; Metabolic syndrome E88.81 ; Other specified hypothyroidism E03.8 ; Hyperlipidemia, unspecified hyperlipidemia type E78.5 and Morbid obesity with BMI of 50.0-59.9, adult Z68.43 [place] [id number] [place] [address] 71196- 0937 September, [facility] [address] [place] [id number] [place] [address] 99132 -4303 September, Wrist pain, left M25.532 and Acute pain of left knee M25.562 [place] [id number] [place] [address] 07366- 7493 Jul, Dysuria R30.0 [place] [id number] [place] [address] 13498- 9178 Jul, Dysuria R30.0 [place] [address] 93566- 9600 Jul, Left lower quadrant pain R10.32 [place] [id number] [place] [address] 75802- 3831 Jul, [place] [address] 10044- 6289 Jul, Coronary artery disease I25.10 ; Family history of diabetes mellitus Z83.3 ; Morbid obesity with BMI of 50.0-59.9, adult Z68.43 ; Metabolic syndrome E88.81 ; Personal history of pulmonary embolism Z86.711 ; Gastroesophageal reflux disease without esophagitis K21.9 ; Hypothyroidism, unspecified E03.9 ; Hyperlipidemia, unspecified hyperlipidemia type E78.5 and Left lower quadrant pain R10.32 [facility] [id number] [place] [address] 06351 -6578 Jul, [facility] [id number] [place] [address] 99086 -8486 Jul, Morbid obesity with BMI of 50.0-59.9, adult Z68.43 [facility] [id number] [place] [address] 61135 -4127 Jul, Generalized abdominal pain R10.84 [facility] [id number] [place] [address] 86259 -1404 Jun, Muscle strain of right upper back, initial encounter S29.012A [facility] [id number] [place] [address] 14985 -1038 16 Maldonado, 2017 Foreign body (FB) in soft tissue M79.5 [place] [id number] [place] [address] 18933- 9318 Mar, Hypothyroidism, unspecified E03.9 and Arthritis M19.90 [place] [id number] [place] [address] 84008- 6587 13 Feb, 2016 Coronary artery disease I25.10 ; Morbid obesity with BMI of 50.0-59.9, adult Z68.43 ; Metabolic syndrome E88.81 ; Gastroesophageal reflux disease without esophagitis K21.9 ; Hypothyroidism, unspecified E03.9 ; Personal history of pulmonary embolism Z86.711 and Hyperlipidemia, unspecified hyperlipidemia type E78.5 [place] [id number] [place] [address] 28805- 4526 10 Feb, 2016 [facility] [id number] [place] [address] 23833 -9630 12 Jan, 2016 Acute right-sided thoracic back pain M54.6 [place] [id number] [place] [address] 81438- 9239 Jan, Acute pain of left knee M25.562 [place] [id number] [place] [address] 42019- 1087 Dec, Dysuria R30.0 ; Metabolic syndrome E88.81 ; Acute pain of left knee M25.562 ; Acute cystitis with hematuria N30.01 and Acute left eye pain H57.12 [place] [id number] [place] [address] 65739- 8509 Dec, [place] [id number] [place] [address] 73702- 8764 Dec, [place] [id number] [place] [address] 33540- 0515 Dec, Hypothyroidism, unspecified E03.9 [place] [id number] [place] [address] 77762- 4507 Dec, [facility] [place] [address], [place] [address]- 0863 Nov, Peripheral edema R60.9 and Acute pain of left knee M25.562 [facility] [id number] [place] [address] 26022 -1633 September, [place] [id number] [place] [address] 84153- 2014 September, Metabolic syndrome E88.81 and Allergy, subsequent encounter T78.40XD [facility] [address] [place] [address] 70787 -1713 September, Muscle strain T14.8 [id number] [place] [address] 30070- 2060 Aug, Chest pressure R07.89 ; Metabolic syndrome E88.81 ; Morbid obesity with BMI of 50.0-59.9, adult Z68.43 ; Esophageal reflux 530.81 and Shortness of breath R06.[address] [place] [address] 36790- 6523 Aug, [id number] [place] [address] 13606- 6773 Aug, [id number] [place] [address] 59123- 3230 Aug, Hypothyroidism, unspecified E03.9 [id number] [place] [address] 12842- 2001 Aug, Routine health maintenance Z00.00 [facility] [address] [place] [address] 61349 -6497 Aug, [address] [id number] [place] [address] 72284- 6037 Jul, Routine health maintenance Z00.00 ; Family history of diabetes mellitus Z83.3 ; Family history of cancer Z80.9 and Morbid obesity with BMI of 50.0-59.9, adult Z68.43 [facility] [address] [place] [address] 70508 -9111 28 Jul, 2015 Allergic rhinitis J30.9 and Postnasal drip R09.82 [facility] [id number] [place] [address] 04461- 9968 18 Jul, 2015 Influenza J11.1 [facility] [id number] [place] [address] 16709 -8919 08 Jul, 2015 Dysuria R30.0 [facility] [id number] [place] [address] 41565- 6523 Apr, [place] [address] 52290- 9611 Mar, Acute upper respiratory infection, unspecified J06.9 and Hypothyroidism E03.9 [place] [id number] [place] [address] 03334- 5273 Mar, [place] [id number] [place] [address] 83061- 4653 Feb, Coronary artery disease I25.10 [place] [id number] [place] [address] 21066- 7777 Feb, Left foot pain M79.672 [place] [id number] [place] [address] 62578- 5207 Jan, UTI (urinary tract infection) 599.0 [place] [id number] [place] [address] 20334- 1738 Jan, Urinary tract infection, site not specified 599.0 [facility] [id number] [place] [address] 43273- 9516 Jan, Urinary tract infection, site not specified 599.0 [facility] [id number] [place] [address] 86299- 9637 Jan, [facility] [id number] [place] [address] 42630- 0395 Dec, Headache 784.0 [facility] [address], [place] [address]- 4881 Dec, Urinary tract infection, site not specified 599.0 [facility] [address] [place] [address] 58230- 4090 Dec, Urinary tract infection, site not specified 599.0 [facility] [address] [place] [address] 65660- 5307 Dec, Urinary tract infection, site not specified 599.0 [facility] [address] [place] [address] 73696- 9703 Nov, Unspecified sleep apnea 780.57 ; Encounter for long-term ( current) use of anticoagulants V58.61 ; Routine general medical examination at [facility] care facility V70.0 and Arthritis of both knees 716.96 [facility] [id number] [place] [address] 79946- 9376 September, Cat bite of hand 882.0 and Rectal bleeding 569.3 [facility] [address], [place] [address]- 3622 Aug, [facility] [address] [place] [address] 65351- 6480 Aug, [facility] [address], [place] [address]- 8745 Jul, [facility] [address], [place] [address]- 2577 Jul, [facility] [address], [place] [address]- 6992 Jul, [facility] [id number] [place] [address] 98439- 0070 Jul, [facility] [address], [place] [address]- 1997 Jul, [facility] [id number] [place] [address] 70603- 5654 Jul, [facility] [place] [facility] [address] [id number] [place] [address]- 6937 Jul, [facility] [place] [facility] [address] [id number] [place] [address]- 1396 Jul, [facility] [place] [facility] [address] [id number] [place] [address]- 8256 May, [facility] [place] [facility] [address] [id number] [place] [address]- 1273 May, [facility] [place] [facility] [address] [id number] [place] [address]- 0516 May, [facility] [place] [facility] [address] [id number] [place] [address]- 9150 May, [facility] [place] [facility] [address] [id number] [place] [address]- 2453 May, [facility] [place] [facility] [address] [id number] [place] [address]- 1687 May, [facility] [place] [facility] [address] [id number] [place] [address]- 9662 May, [facility] [place] [facility] [address] [facility] [id number] [place] [address]- 3660 Mar, [facility] [place] [facility] [address] [id number] [address]- 8827 Mar, [facility] [place] [facility] [address] [id number], [place] [address]- 8711 Jan, [facility] [place] [facility] [address] [id number] [place] [address]- 2818 Jan, [facility] [place] [facility] [address] [id number] [place] [address]- 8237 Jan, [facility] [place] [facility] [address] [id number] [place] [address]- 8292 Jan, [facility] [place] [facility] [address] [id number] [place] [address]- 0103 Jan, [facility] [place] [facility] [address] [id number] [place] [address]- 3011 Jan, [facility] [place] [facility] [address] [id number] [place] [address]- 7896 Dec, [facility] [place] [facility] [address] [id number] [place] [address]- 0561 Dec, [facility] [place] [facility] [address] [id number] [place] [address]- 9054 Dec, [facility] [place] [facility] [address] [id number] [place] [address]- 4903 Dec, [facility] [place] [facility] [address] [id number] [place] [address]- 2953 Dec, [facility] [place] [facility] [address] [id number] [place] [address]- 5968 Dec, [facility] [place] [facility] [address] [id number] [place] [address]- 4929 Dec, [facility] [place] [facility] [address] [id number] [place] [address]- 7325 Dec, [facility] [place] [facility] [address] [id number] [place] [address]- 0411 Dec, [facility] [place] [facility] [address] [id number] [place] [address]- 2094 Dec, [facility] [place] [facility] [address] [id number] [place] [address]- 0153 Nov, [facility] [place] [facility] [address] [id number] [place] [address]- 9009 Nov, [facility] [place] [facility] [address] [id number] [place] [address]- 0604 September, [facility] [place] [facility] [address] [id number] [place] [address]- 7275 September, [facility] [place] [facility] [address] [id number] [place] [address]- 5602 September, [facility] [place] [facility] [address] [id number] [place] [address]- 0520 September, [facility] [place] [facility] [address] [id number] [place] [address]- 9305 Aug, [facility] [place] [facility] [address] [id number] [place] [address]- 4786 Aug, [facility] [place] [facility] [address] [id number] [place] [address]- 4750 Aug, [facility] [place] [facility] [address] [id number] [place] [address]- 1085 Aug, [facility] [place] [facility] [address] [id number] [place] [address]- 7207 Aug, [facility] [place] [facility] [address] [id number] [place] [address]- 9664 Aug, [facility] [place] [facility] [address] [id number] [place] [address]- 2624 Aug, [facility] [place] [facility] [address] [id number] [place] [address]- 8695 Aug, [facility] [place] [facility] [address] [id number] [place] [address]- 3083 Aug, [facility] [place] [facility] [address] [id number], [place] [address]- 4757 Aug, [facility] [place] [facility] [address] [id number] [place] [address]- 5397 Aug, [facility] [place] [facility] [address] [id number] [place] [address]- 5708 Aug, [facility] [place] [facility] [address] [id number] [place] [address]- 6008 Jul, [facility] [place] [facility] [address] [id number] [place] [address]- 0649 20 Jul, 2013 [facility] [place] [facility] [address] [id number] [place] [address]- 6648 Jul, [facility] [place] [facility] [address] [id number] [place] 3076 Jul, [facility] [place] [facility] [address] [id number] [place] [address]- 6736 Jul, [facility] [place] [facility] [address] [id number] [place] [address]- 5448 Jul, [facility] [place] [facility] [address] [id number] [place] [address]- 7056 05 Jul, 2013 [facility] [place] [facility] [address] [id number] [place] [address]- 8367 Jul, [facility] [place] [facility] [address] [id number] [place] [address]- 0613 Jul, [facility] [place] [facility] [address] [id number] [place] [address]- 2371 Jul, [facility] [place] [facility] [address] [id number] [place] [address]- 2503 Jun, [facility] [place] [facility] [address] [facility] [id number] [place] [address]- 3596 28 Jun, 2013 [facility] [place] [facility] [address] [id number] [place] [address]- 0686 17 Jun, 2013 [facility] [place] [facility] [address] [facility] [id number] [place] [address]- 8693 17 Jun, 2013 [facility] [place] [facility] [address] [id number] [place] 4304 Jun, [facility] [place] [facility] [address] [facility] [id number] [place] [address]- 2836 Jun, [facility] [place] [facility] [address] [facility] [id number] [place] [address] Jun, [facility] [place] [facility] [address] [id number] [place] [address] Jun, [facility] [place] [facility] [address] [id number] [place] [address] Jun, [facility] [place] [facility] [address] [id number] [place] [address] Jun, [facility] [place] [facility] [address] [id number] [place] [address] Jun, [facility] [place] [facility] [address] [id number] [place] [address] Jun, [facility] [place] [facility] [address] [id number] [place] [address] May, [facility] [place] [facility] [address] [id number] [place] [address] May, [facility] [place] [facility] [address] [id number] [place] [address] May, [facility] [place] [facility] [address] [id number] [place] [address] May, [facility] [place] [facility] [address] [id number] [place] [address]32 May, [facility] [place] [facility] [address] [id number] [place] [address] May, [facility] [place] [facility] [address] [id number] [place] [address] May, [facility] [place] [facility] [address] [id number] [place] [address] May, [facility] [place] [facility] [address] [id number] [place] [address] May, [facility] [place] [facility] [address] [id number] [place] [address] May, [facility] [place] [facility] [address] [id number] [place] [address] 08 May, 2013 [facility] [address] [id number] [place] [address] May, [facility] [address] [id number] [place] [address] May, [facility] [address] [id number] [place] [address] May, [facility] [address] [id number] [place] [address] May, [facility] [address] [id number] [place] [address]- [address] Apr, [facility] [address] [id number] [place] [address] Apr, [facility] [address] [id number] [place] [address] Apr, [facility] [address] [id number] [place] [address] Apr, [facility] [address] [id number] [place] [address] Mar, [facility] [address] [id number] [place] [address] Mar, [facility] [address] [id number] [place] [address] Mar, [facility] [address] [id number] [place] [address] Mar, [facility] [place] [facility] [address] [id number] [place] [address] Mar, [facility] [address] [id number] [place] [address] Mar, [facility] [address] [id number] [place] [address] Mar, [facility] [place] [facility] [address] [id number] [place] [address] Mar, [facility] [place] [facility] [address] [id number] [place] [address] Mar, [facility] [place] [facility] [address] [id number] [place] [address] Mar, [facility] [place] [facility] [address] [id number] [place] [address] Mar, [facility] [place] [facility] [address] [id number] [place] [address] Mar, [facility] [place] [facility] [address] [id number] [place] [address] Feb, [facility] [place] [facility] [address] [id number] [place] [address] 18 Jan, 2013 [facility] [place] [facility] [address] [id number] [place] [address] 17 Jan, 2013 [facility] [place] [facility] [address] [id number] [place] [address] 06 Jan, 2013 [facility] [place] [facility] [address] [id number], [place] [address] 04 Jan, 2013 [facility] [place] [facility] [address] [id number], [place] [address] Jan, [facility] [place] [facility] [address] [id number], [place] [address] Dec, [facility] [place] [facility] [address] [id number] [place] [address] Dec, [facility] [place] [facility] [address] [id number] [place] [address] Dec, [facility] [place] [facility] [address] [id number], [place] [address] Dec, [facility] [place] [facility] [address] [id number], [place] [address] Dec, [facility] [place] [facility] [address] [id number] [place] [address] Dec, [facility] [place] [facility] [address] [facility] [id number] [place] [address] Dec, [facility] [place] [facility] [address] [facility] [id number] [place] [address] Dec, [facility] [place] [facility] [address] [facility] [id number] [place] [address] Nov, [facility] [place] [facility] [address] [facility] [id number] [place] [address] Nov, [facility] [place] [facility] [address] [facility] [id number] [place] [address] Nov, [facility] [place] [facility] [address] [facility] [id number] [place] [address] Nov, [facility] [place] [facility] [address] [facility] [id number] [place] [address] Nov, [facility] [place] [facility] [address] [facility] [id number] [place] [address] Nov, [facility] [place] [facility] [address] [facility] [id number] [place] [address] Oct, [facility] [address] [facility] [id number] [place] [id number] Oct, [facility] [address] [id number] [place] [id number] Oct, [facility] [address] [id number] [place] [id number] Oct, [facility] [address] [facility] [id number] [place] [id number] Oct, [facility] [place] [facility] [address] [facility] [id number] [place] [address] Oct, [facility] [place] [facility] [address] [facility] [id number] [place] [address]05 Oct, [facility] [address] [id number] [place] [address] Oct, [facility] [place] [facility] [address] [id number] [place] [address] Oct, [facility] [place] [facility] [address] [id number] [place] [address] Oct, [facility] [place] [facility] [address] [id number] [place] [address] Oct, [facility] [place] [facility] [address] [id number] [place] [address]68 September, [facility] [place] [facility] [address] [id number] [place] [address] Aug, [facility] [place] [facility] [address] [id number] [place] [address] 27[address] Aug, [facility] [place] [facility] [address] [id number] [place] [address]679 Aug, [facility] [place] [facility] [address] [id number] [place] [address] Aug, [facility] [place] [facility] [address] [id number] [place] [address] Jul, [facility] [place] [facility] [address] [id number], [place] [address] Jul, [facility] [place] [facility] [address] [id number], [place] [address] Jul, [facility] [place] [facility] [address] [id number] [place] [address] 8077 Jul, [facility] [place] [facility] [address] [id number] [place] [address] Jul, [facility] [place] [facility] [address] [id number] [place] [address] Jun, [facility] [place] [facility] [address] [id number] [place] [address]206 13 Jun, 2012 [facility] [address] [id number] [place] [address] 11 Jun, 2012 [facility] [address] [id number] [place] [address] May, [facility] [address] [id number] [place] [address]- 4495 24 May, 2012 [facility] [address] [id number] [place] [address] 14 May, 2012 [facility] [address] [id number] [place] [address]47 May, [facility] [address] [id number] [place] [address]678 May, [facility] [address] [id number] [place] [address] May, [facility] [address] [id number] [place] [address] 18 Apr, 2012 [facility] [address] [id number] [place] [address] 18 Apr, 2012 [facility] [address] [id number] [place] [address]- 1873 13 Apr, 2012 [facility] [address] [id number] [place] [address] 7822 13 Apr, 2012 [facility] [address] [id number] [place] [address]79 13 Apr, 2012 [facility] [address] [id number] [place] [address]159 11 Apr, 2012 [facility] [address] [id number] [place] [address]- [address] 11 Apr, 2012 [facility] [address] [id number] [place] [address]676 Mar, [facility] [address] [id number] [place] [address] Mar, [facility] [place] [facility] [address] [id number] [place] [address] Mar, [facility] [place] [facility] [address] [id number] [place] [address]286 Mar, [facility] [place] [facility] [address] [id number] [place] [address]276 Jan, [facility] [place] [facility] [address] [id number] [place] [address]116 Jan, [facility] [place] [facility] [address] [id number] [place] [address] Jan, [facility] [address] [id number] [place] [address]136 Jan, [facility] [address] [id number] [place] [id number] Dec, [facility] [address] [id number] [place] [address]6 Dec, [facility] [address] [id number] [place] [id number] Dec, [facility] [address] [id number] [place] [address] Dec, [facility] [place] [facility] [address] [id number] [place] [address]- [address]286 Dec, [facility] [place] [facility] [address] [id number] [place] [address] 2546 Dec, [facility] [place] [facility] [address] [id number] [place] [address]- 7776 Nov, [facility] [place] [facility] [address] [id number] [place] [address]- 7746 Nov, [facility] [place] [facility] [address] [id number] [place] [address]- 2502 Nov, IMMUNIZATIONS No Known Immunizations SOCIAL HISTORY Never Assessed REASON FOR VISIT Lab (walk-in)--[facility] PLAN OF CARE VITAL SIGNS MEDICATIONS Unknown Medications RESULTS No Results PROCEDURES Procedure Date Ordered Result Body Site GLYCATED HEMOGLOBIN TEST September 10, 2017 MICROALBUMIN, SEMIQUANT September 10, 2017 VENIPUNCT, ROUTINE* September 10, 2017 [facility] September 10, 2017 INSTRUCTIONS MEDICATIONS ADMINISTERED No Known Medications [...]
--- OUTSIDE RECORDS SUMMARY | 2018-07-26 22:05 | XMS REPORT ---
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 Active 415137350 Problem Gastroesophageal reflux disease without esophagitis K21.9 Active 412927193 Problem Coronary artery disease I25.10 Active 89867003 Problem Renal stones N20.0 Active 24478318 Problem Hypothyroidism E03.9 Active 85187636 Problem Hyperlipidemia, unspecified hyperlipidemia type E78.5 Active 80616228 Problem Acute gout involving toe of right foot, 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 Active 084450518 Problem Intractable migraine without aura and with status migrainosus G43.011 Active 896063084 ALLERGIES Substance Reaction Event Type Date Status Phenergan hallucinations Drug Allergy Aug, Active Nexium anaphylaxis Drug Allergy Aug, Active Methylprednisolone nausea and vomiting Drug Allergy Aug, Active Levothyroxine Sodium rash Drug Allergy Aug, Active Honey Bee Venom Unknown Drug Allergy Aug, Active Dexamethasone nausea and vomiting Drug Allergy Aug, Active Azithromycin hives Drug Allergy Aug, Active Amoxicillin hives Drug Allergy Aug, Active Adhesive Unknown Non Drug Allergy Aug, Active Tape Unknown Non Drug Allergy Aug, Active ENCOUNTERS Encounter Location Date Diagnosis [facility] [address] [facility] [id number] [address] Dec, [facility] [address] [facility] [id number] [place] [address] 28057- 5878 Oct, [place] [id number] [place] [address] 46775- 8400 Oct, [place] [address] [place] [id number] [place] [address] 46907- 3988 Oct, [place] [address] [place] [id number] [place] [address] 40005- 4646 September, [place] [address] [place] [id number] [place] [address] 82867- 3661 September, Type 2 diabetes mellitus with diabetic neuropathic arthropathy, 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 ; Hyperlipidemia, unspecified hyperlipidemia type E78.5 ; Personal history of pulmonary embolism Z86.711 ; Coronary artery disease I25.10 and Hypothyroidism E03.9 [place] [address] [place] [id number] [place] [address] 68784- 0814 September, [place] [address] [place] [id number] [place] [address] 88704- 6404 Aug, Type 2 diabetes mellitus with diabetic [...] without aura and with status migrainosus G43.011 [facility] [id number] [place] [address] 61620- 4223 Aug, [place] [address] [place] [id number] [place] [address] 81032- 3817 Aug, [place] [address] [place] [id number] [place] [address] 20012- 0887 Jul, Renal stones N20.0 [facility] [id number] [place] [address] 73443 -5097 Jun, Back pain M54.9 ; Kidney stones N20.0 and BMI 50.0-59.9, adult Z68.43 [place] [address] 06721- 2893 Jun, [place] [address] 80897- 3296 Apr, [place] [address] 32180- 2801 Apr, [place] [address] 12956- 4144 Apr, Right foot pain M79.671 ; Acute gout involving toe of right foot, 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 and Arthritis M19.90 [place] [address] 57473- 0950 06 Apr, 2017 Gastroesophageal reflux disease without esophagitis K21.9 [place] [address] 20729- 0945 16 Mar, 2017 Hypothyroidism, unspecified E03.9 [place] [address] 48410- 1402 11 Feb, 2017 [place] [address] 29468- 3400 25 Jan, 2017 Cervicalgia of mhvgefyv-hpkneeu-qictl region M54.2 and Persistent headaches R51 [place] [address] [place] [id number] [place] [address] 40698- 6574 20 Jan, 2017 [place] [address] 99558- 7965 12 Jan, 2017 Intractable migraine without aura and with status migrainosus G43.011 ; Cervical spine pain M54.2 ; Hyperlipidemia, unspecified hyperlipidemia type E78.5 ; Hypothyroidism E03.9 and Metabolic syndrome E88.81 [place] [address] 02274- 9224 Jan, Hypothyroidism, unspecified E03.9 [place] [address] [place] [id number] [place] [address] 04204- 9598 Dec, Hypothyroidism, unspecified E03.9 [place] [address] [place] [id number] [place] [address] 48985- 4167 Dec, Hypothyroidism E03.9 [place] [address] 71145- 3193 Nov, Laceration of left great toe w/o foreign body w/o damage to nail, initial encounter S91.112A [facility] [address] [place] [address] 87493 -1060 Oct, Pain in left knee M25.562 and Arthritis M19.[address] 04512- 3432 Oct, Hypothyroidism, unspecified E03.9 and Hyperlipidemia, unspecified hyperlipidemia type E78.5 [place] [address] [place] [id number] [place] [address] 95320- 7100 Oct, Gastroesophageal reflux disease without esophagitis K21.9 [place] [address] 03401- 2194 Oct, Metabolic syndrome E88.81 ; Personal history of pulmonary embolism Z86.711 ; Other specified hypothyroidism E03.8 and Hyperlipidemia, unspecified hyperlipidemia type E78.5 [place] [address] [place] [id number] [place] [address] 36116- 8550 13 Oct, 2016 Personal history of pulmonary embolism Z86.711 ; Dysuria R30.0 ; Metabolic syndrome E88.81 ; Other specified hypothyroidism E03.8 ; Hyperlipidemia, unspecified hyperlipidemia type E78.5 and Morbid obesity with BMI of 50.0-59.9, adult Z68.43 [place] [address] [place] [id number] [place] [address] 13813- 8322 September, [facility] [address] 67277 -6479 September, Wrist pain, left M25.532 and Acute pain of left knee M25.562 [place] [address] [place] [id number] [place] [address] 19877- 5802 Jul, Dysuria R30.0 [place] [address] 15735- 9938 Jul, Dysuria R30.0 [place] [address] 99487- 8702 16 Jul, 2016 Left lower quadrant pain R10.[address] 59550- 5934 Jul, [place] [address] [place] [id number] [place] [address] 44844- 0700 Jul, Coronary artery disease I25.10 ; Family history of diabetes mellitus Z83.3 ; Morbid obesity with BMI of 50.0-59.9, adult Z68.43 ; Metabolic syndrome E88.81 ; Personal history of pulmonary embolism Z86.711 ; Gastroesophageal reflux disease without esophagitis K21.9 ; Hypothyroidism, unspecified E03.9 ; Hyperlipidemia, unspecified hyperlipidemia type E78.5 and Left lower quadrant pain R10.32 [facility] [place] [id number] [place] [address] 94932 -3569 Jul, [facility] [place] [id number] [place] [address] 69749 -3036 Jul, Morbid obesity with BMI of 50.0-59.9, adult Z68.43 [facility] [place] [id number] [place] [address] 63953 -2884 Jul, Generalized abdominal pain R10.84 [facility] [place] [id number] [place] [address] 23123 -4956 Jun, Muscle strain of right upper back, initial encounter S29.012A [facility] [place] [id number] [place] [address] 27062 -4506 May, Foreign body (FB) in soft tissue M79.5 [place] [address] [place] [id number] [place] [address] 96734- 2594 Mar, Hypothyroidism, unspecified E03.9 and Arthritis M19.90 [place] [address] [place] [id number] [place] [address] 32697- 7071 13 Feb, 2016 Coronary artery disease I25.10 ; Morbid obesity with BMI of 50.0-59.9, adult Z68.43 ; Metabolic syndrome E88.81 ; Gastroesophageal reflux disease without esophagitis K21.9 ; Hypothyroidism, unspecified E03.9 ; Personal history of pulmonary embolism Z86.711 and Hyperlipidemia, unspecified hyperlipidemia type E78.5 [place] [address] [place] [id number] [place] [address] 81539- 6819 10 Feb, 2016 [facility] [address] [place] [id number] [place] [address] 61980 -8816 12 Jan, 2016 Acute right-sided thoracic back pain M54.6 [place] [address] [place] [id number] [place] [address] 50904- 0247 Jan, Acute pain of left knee M25.562 [place] [address] [place] [id number] [place] [address] 53164- 5865 18 Dec, 2015 Dysuria R30.0 ; Metabolic syndrome E88.81 ; Acute pain of left knee M25.562 ; Acute cystitis with hematuria N30.01 and Acute left eye pain H57.12 [place] [address] [place] [id number] [place] [address] 00148- 2493 Dec, [place] [address] [place] [id number] [place] [address] 92106- 7868 Dec, [place] [address] [place] [id number] [place] [address] 28248- 0900 Dec, Hypothyroidism, unspecified E03.9 [place] [address] 95824- 6651 Dec, [place] [address] [address] 7311 Nov, Peripheral edema R60.9 and Acute pain of left knee M25.562 [facility] [place] [address] [place] [id number] [place] [address] 02868 -8095 September, [place] [address] [place] [id number] [place] [address] 92797- 5536 September, Metabolic syndrome E88.81 and Allergy, subsequent encounter T78.40XD [facility] [place] [id number] [place] [address] 10560 -9600 September, Muscle strain T14.8 [place] [address] [place] [id number] [place] [address] 96867- 6124 Aug, Chest pressure R07.89 ; Metabolic syndrome E88.81 ; Morbid obesity with BMI of 50.0-59.9, adult Z68.43 ; Esophageal reflux 530.81 and Shortness of breath R06.02 [place] [address] [place] [id number] [place] [address] 82032- 4049 Aug, [place] [address] [place] [id number] [place] [address] 94436- 9028 Aug, [place] [address] [place] [id number] [place] [address] 91105- 2961 Aug, Hypothyroidism, unspecified E03.9 [place] [id number] [place] [address] 64697- 4667 Aug, Routine health maintenance Z00.00 [facility] [place] [id number] [place] [address] 31273 -8292 Aug, [place] [address] [place] [id number] [place] [address] 08316- 7684 Jul, Routine health maintenance Z00.00 ; Family history of diabetes mellitus Z83.3 ; Family history of cancer Z80.9 and Morbid obesity with BMI of 50.0-59.9, adult Z68.43 [facility] [address] [place] [id number] [place] [address] 11537 -5659 28 Jul, 2015 Allergic rhinitis J30.9 and Postnasal drip R09.82 [facility] [address] [place] [id number] [place] [address] 16218- 7226 18 Jul, 2015 Influenza J11.1 [facility] [address] [place] [id number] [place] [address] 77964 -6401 08 Jul, 2015 Dysuria R30.0 [facility] [address] [place] [id number] [place] [address] 26610- 2568 Apr, [place] [address] 07129- 6637 24 Mar, 2015 Acute upper respiratory infection, unspecified J06.9 and Hypothyroidism E03.9 [place] [address] [place] [id number] [place] [address] 60611- 4765 Mar, [place] [address] [place] [id number] [place] [address] 76366- 4041 Feb, Coronary artery disease I25.10 [place] [address] [place] [id number] [place] [address] 23807- 6045 Feb, Left foot pain M79.672 [place] [address] [place] [id number] [place] [address] 57317- 1031 Jan, UTI (urinary tract infection) 599.0 [place] [address] [place] [id number] [place] [address] 57058- 2229 Jan, Urinary tract infection, site not specified 599.0 [place] [address] [place] [id number] [place] [address] 47427- 4951 Jan, Urinary tract infection, site not specified 599.0 [place] [address] [place] [id number] [place] [address] 16613- 0601 Jan, [place] [address] [place] [address]- 8574 Dec, Headache 784.0 [facility] [address] [place] [id number] [place] [address] 73520- 6244 Dec, Urinary tract infection, site not specified 599.0 [facility] [id number] [place] [address] 61533- 9404 Dec, Urinary tract infection, site not specified 599.0 [facility] [address] [place] [id number] [place] [address] 12190- 4809 Dec, Urinary tract infection, site not specified 599.0 [facility] [address] [place] [id number] [place] [address] 02207- 5165 Nov, Unspecified sleep apnea 780.57 ; Encounter for long-term ( current) use of anticoagulants V58.61 ; Routine general medical examination at health care facility V70.0 and Arthritis of both knees 716.96 [place] [address] [place] [id number] [place] [address] 47974- 2520 September, Cat bite of hand 882.0 and Rectal bleeding 569.3 [place] [address] [place] [id number] [place] [address] 61177- 8464 Aug, [facility] [id number] [place] [address] 25279- 8041 Aug, [facility] [address] [address]- 7727 Jul, [facility] [address] [address]- 4313 Jul, [facility] [address] [place] [id number] [place] [address] 98901- 6993 Jul, [facility] [id number] [place] [address] 73379- 4558 Jul, [facility] [id number] [place] [address] 17932- 2815 Jul, [facility] [place] [facility] [address] [id number] [place] [address]- 2736 Jul, [facility] [place] [facility] [address] [id number] [place] [address]- 9861 Jul, [facility] [place] [facility] [address] [id number] [place] [address]- 3643 Jul, [facility] [place] [facility] [address] [id number] [place] [address]- 8675 May, [facility] [place] [facility] [address] [id number] [place] [address]- 0168 May, [facility] [place] [facility] [address] [id number] [place] [address]- 5512 May, [facility] [place] [facility] [address] [id number] [place] [address]- 6652 May, [facility] [place] [facility] [address] [id number] [place] [address]- 0591 May, [facility] [place] [facility] [address] [id number] [place] [address]- 4472 May, [facility] [place] [facility] [address] [id number] [place] [address]- 9507 May, [facility] [place] [facility] [address] [id number] [place] [address]- 5840 Mar, [facility] [place] [facility] [address] [id number] [place] [address]- 7664 Mar, [facility] [place] [facility] [address] [id number] [place] [address]- 2269 Jan, [facility] [place] [facility] [address] [id number] [place] [address]- 6944 Jan, [facility] [place] [facility] [address] [id number] [place] [address]- 4646 Jan, [facility] [place] [facility] [address] [id number] [place] [address]- 5254 Jan, [facility] [place] [facility] [address] [id number] [place] [address]- 6489 Jan, [facility] [place] [facility] [address] [id number] [place] [address]- 4061 Jan, [facility] [place] [facility] [address] [id number] [place] [address]- 2713 Dec, [facility] [place] [facility] [address] [id number] [place] [address]- 0173 Dec, [facility] [place] [facility] [address] [id number] [place] [address]- 3425 Dec, [facility] [place] [facility] [address] [id number] [place] [address]- 7538 Dec, [facility] [place] [facility] [address] [id number] [place] [address]- 4575 Dec, [facility] [place] [facility] [address] [id number] [place] [address]- 2803 Dec, [facility] [place] [facility] [address] [id number] [place] [address]- 3662 Dec, [facility] [place] [facility] [address] [id number] [place] [address]- 2434 Dec, [facility] [place] [facility] [address] [id number] [place] [address]- 4304 Dec, [facility] [place] [facility] [address] [id number] [place] [address]- 3128 Dec, [facility] [place] [facility] [address] [id number] [place] [address]- 7302 Nov, [facility] [place] [facility] [address] [id number] [place] [address]- 8054 Nov, [facility] [place] [facility] [address] [id number] [place] [address]- 7314 September, [facility] [place] [facility] [address] [id number] [place] [address]- 3720 September, [facility] [address] [id number] [place] [address]- 1837 September, [facility] [place] [facility] [address] [id number] [place] [address]- 4046 September, [facility] [address] [id number] [place] [address]- 6407 Aug, [facility] [place] [facility] [address] [id number] [place] [address]- 7207 Aug, [facility] [address] [id number] [place] [address]- 7108 Aug, [facility] [address] [id number] [place] [address]- 7484 Aug, [facility] [address] [id number] [place] [address]- 1997 Aug, [facility] [address] [id number] [place] [address]- 2830 Aug, [facility] [place] [facility] [address] [id number] [place] [address]- 4923 Aug, [facility] [address] [id number] [place] [address]- 0481 Aug, [facility] [place] [facility] [address] [id number] [place] [address]- 5527 Aug, [facility] [place] [facility] [address] [id number] [place] [address]- 9045 Aug, [facility] [place] [facility] [address] [id number] [place] [address]- 0357 Aug, [facility] [place] [facility] [address] [id number] [place] [address]- 6402 Aug, [facility] [place] [facility] [address] [id number] [place] [address]- 5696 Jul, [facility] [place] [facility] [address] [id number] [place] [address]- 2186 Jul, [facility] [place] [facility] [address] [id number] [place] [address]- 3860 Jul, [facility] [place] [facility] [address] [id number] [place] [address]- 0535 Jul, [facility] [place] [facility] [address] [id number] [place] [address]- 2532 Jul, [facility] [place] [facility] [address] [id number] [place] [address]- 9299 Jul, [facility] [place] [facility] [address] [id number] [place] [address]- 5798 Jul, [facility] [place] [facility] [address] [id number] [place] [address]- 2124 Jul, [facility] [place] [facility] [address] [id number] [place] [address]- 0998 Jul, [facility] [place] [facility] [address] [id number] [place] [address]- 1710 Jul, [facility] [place] [facility] [address] [id number] [place] [address]- 5428 Jun, [facility] [place] [facility] [address] [id number] [place] [address]- 3620 Jun, [facility] [place] [facility] [address] [id number] [place] [address]- 5920 Jun, [facility] [place] [facility] [address] [id number] [place] 5628 Jun, [facility] [place] [facility] [address] [id number] [place] 7126 Jun, [facility] [place] [facility] [address] [id number] [place] [address]- 1696 Jun, [facility] [place] [facility] [address] [id number] [place] [address]- 2722 Jun, [facility] [place] [facility] [address] [id number] [place] [address] Jun, [facility] [place] [facility] [address] [id number] [place] [address] Jun, [facility] [place] [facility] [address] [id number] [place] [address] Jun, [facility] [place] [facility] [address] [id number] [place] [address] Jun, [facility] [place] [facility] [address] [id number] [place] [address] Jun, [facility] [place] [facility] [address] [id number] [place] [address] May, [facility] [place] [facility] [address] [id number] [place] [address] May, [facility] [place] [facility] [address] [id number] [place] [address] May, [facility] [place] [facility] [address] [id number] [place] [address]255 May, [facility] [place] [facility] [address] [id number] [place] [address] May, [facility] [place] [facility] [address] [id number] [place] [address] May, [facility] [place] [facility] [address] [id number] [place] [address] May, [facility] [place] [facility] [address] [id number] [place] [address] May, [facility] [place] [facility] [address] [id number] [place] [address] May, [facility] [place] [facility] [address] [id number] [place] [address] May, [facility] [address] [id number] [place] [address] May, [facility] [place] [facility] [address] [id number] [place] [address]- [address] May, [facility] [place] [facility] [address] [facility] [id number] [place] [address]- [address] May, [facility] [place] [facility] [address] [id number] [place] [address]- [address] May, [facility] [place] [facility] [address] [id number] [place] [address]- [address]68 May, [facility] [place] [facility] [address] [id number] [place] [address] Apr, [facility] [place] [facility] [address] [id number] [place] [address] Apr, [facility] [place] [facility] [address] [id number], [place] [address] Apr, [facility] [place] [facility] [address] [id number] [place] [address] Apr, [facility] [place] [facility] [address] [id number], [place] [address] Mar, [facility] [place] [facility] [address] [id number], [place] [address] Mar, [facility] [place] [facility] [address] [id number], [place] [address] Mar, [facility] [place] [facility] [address] [id number], [place] [address] Mar, [facility] [place] [facility] [address] [id number], [place] [address] Mar, [facility] [place] [facility] [address] [id number], [place] [address] Mar, [facility] [place] [facility] [address] [id number] [place] [address] 07 Mar, 2012 [facility] [place] [facility] [address] [id number] [place] [address] Mar, [facility] [place] [facility] [address] [id number] [place] [address]- 2005 Mar, [facility] [place] [facility] [address] [id number] [place] [address] 05 Mar, 2013 [facility] [place] [facility] [address] [id number] [place] [address] Mar, [facility] [place] [facility] [address] [id number] [place] [address] Mar, [facility] [place] [facility] [address] [id number] [place] [address] Feb, [facility] [place] [facility] [address] [id number] [place] [address] 18 Jan, 2013 [facility] [place] [facility] [address] [id number] [place] [address] 17 Jan, 2013 [facility] [place] [facility] [address] [id number] [place] [address] 06 Jan, 2013 [facility] [place] [facility] [address] [facility] [id number] [place] [address] 04 Jan, 2013 [facility] [place] [facility] [address] [id number] [place] [address] 03 Jan, 2013 [facility] [place] [facility] [address] [id number] [place] [address] 26 Dec, 2012 [facility] [place] [facility] [address] [id number] [place] [address] Dec, [facility] [place] [facility] [address] [id number] [place] [address] 18 Dec, 2012 [facility] [place] [facility] [address] [id number] [place] [address] Dec, [facility] [place] [facility] [address] [id number] [place] [address] Dec, [facility] [place] [facility] [address] [id number] [place] [address] Dec, [facility] [place] [facility] [address] [id number] [place] [address] Dec, [facility] [place] [facility] [address] [id number] [place] [address] Dec, [facility] [place] [facility] [address] [id number] [place] [address] Nov, [facility] [place] [facility] [address] [id number] [place] [address] Nov, [facility] [place] [facility] [address] [id number] [place] [address] Nov, [facility] [place] [facility] [address] [id number] [place] [address] Nov, [facility] [place] [facility] [address] [id number] [place] [address] Nov, [facility] [place] [facility] [address] [id number] [place] [address] Nov, [facility] [place] [facility] [address] [id number] [place] [address] Oct, [facility] [address] [id number] [id number] Oct, [facility] [address] [id number] [id number] Oct, [facility] [address] [id number] [place] [id number] Oct, [facility] [address] [id number] [place] [id number] Oct, [facility] [place] [facility] [address] [id number] [place] [address] Oct, [facility] [place] [facility] [address] [id number] [place] [address]68 12 Oct, 2012 [facility] [address] [id number] [place] [address] Oct, [facility] [address] [id number] [place] [address] Oct, [facility] [address] [id number] [place] [address] Oct, [facility] [address] [id number] [place] [address] Oct, [facility] [address] [id number] [place] [address] September, [facility] [address] [id number] [place] [address] Aug, [facility] [address] [id number] [place] [address] Aug, [facility] [address] [id number] [place] [address] 39[address] Aug, [facility] [address] [id number] [place] [address] Aug, [facility] [address] [id number] [place] [address] 24 Jul, 2012 [facility] [address] [id number] [place] [address] Jul, [facility] [address] [id number] [place] [address] Jul, [facility] [place] [facility] [address] [id number] [place] [address] 05 Jul, 2012 [facility] [address] [id number] [place] [address] Jul, [facility] [address] [id number] [place] [address] Jun, [facility] [address] [id number] [place] [address] 13 Jun, 2012 [facility] [place] [facility] [address] [id number] [place] [address] Jun, [facility] [address] [id number] [place] [address] May, [facility] [place] [facility] [address] [id number] [place] [address]14 24 May, 2012 [facility] [address] [id number] [place] [address] May, [facility] [address] [id number] [place] [address] 7768 May, [facility] [address] [id number] [place] [address] May, [facility] [address] [id number] [place] [address] May, [facility] [address] [id number] [place] [address] 18 Apr, 2012 [facility] [place] [facility] [address] [id number] [place] [address] 18 Apr, 2012 [facility] [place] [facility] [address] [id number], [place] [address] 13 Apr, 2012 [facility] [place] [facility] [address] [id number], [place] [address] 13 Apr, 2012 [facility] [place] [facility] [address] [id number] [place] [address] 1391 13 Apr, 2012 [facility] [place] [facility] [address] [id number] [place] [address]26 11 Apr, 2012 [facility] [place] [facility] [address] [id number] [place] [address] 11 Apr, 2012 [facility] [place] [facility] [address] [id number] [place] [address] Mar, [facility] [place] [facility] [address] [id number] [place] [address] Mar, [facility] [place] [facility] [address] [id number] [place] [address] Mar, [facility] [place] [facility] [address] [id number] [place] [address] 118[address] Mar, [facility] [place] [facility] [address] [id number] [place] [address] Jan, [facility] [place] [facility] [address] [id number] [place] [address] Jan, [facility] [place] [facility] [address] [id number] [place] [address] Jan, [facility] [place] [facility] [address] [id number] [place] [address] Jan, [facility] [address] [id number] [id number] Dec, [facility] [place] [facility] [address] [id number] [place] [address] Dec, [facility] [address] [facility] [id number] [id number] Dec, [facility] [place] [facility] [address] [id number], [place] [address] Dec, [facility] [place] [facility] [address] [id number], [place] [address] Dec, [facility] [place] [facility] [address] [id number] [place] [address] Dec, [facility] [place] [facility] [address] [id number] [place] [address] Nov, [facility] [place] [facility] [address] [id number] [place] [address] Nov, [facility] [place] [facility] [address] [facility] [id number] [place] [address] Nov, IMMUNIZATIONS No Known Immunizations SOCIAL HISTORY Never Assessed REASON FOR VISIT Hypothyroid. FRANCIA Wen, Follow up on kidney stone. , Stents placed PLAN OF CARE Activity Details Follow Up 3 Months Reason:CHM/DM VITAL SIGNS Height 64 in 2017-09-03 Weight 310.2 lbs 2017-09-03 Temperature 98.2 degrees Fahrenheit 2017-09-03 Heart Rate 80 bpm 2017-09-03 Respiratory Rate 20 2017-09-03 BMI 53.24 kg/m2 2017-09-03 Blood pressure systolic 118 mmHg 2017-09-03 Blood pressure diastolic 68 mmHg 2017-09-03 MEDICATIONS Medication Instructions Dosage Frequency Start Date End Date Duration Status Topamax 100 MG Orally Twice a day 1 tablet 12h Active Levothyroxine Sodium 150 MCG Orally Once a day TAKE ONE TABLET BY MOUTH ONCE DAILY IN THE MORNING ON AN EMPTY STOMACH 24h Active Plavix 75 MG Orally Once a day 1 tablet 24h Active Aspirin Adult Low Dose 81 MG Orally Once a day 1 tablet 24h Active Omeprazole 20 mg Orally Once a day 1 tablet 24h Jan, Active Glucometer glucometer ICD10- E11.9 fasting and 2 hours after one meal daily 3 times weekly. test blood sugar Aug, Active Test strips Test Strips ICD10- E11.9 fasting and 2 hours after one meal daily 2 times weekly. test blood sugar Aug, Active Atorvastatin Calcium 80 MG Orally Once a day 1 tablet 24h Active Simvastatin 80 MG Orally Once a day 1 tablet in the evening 24h Aug, Active Tylenol Extra Strength 500 MG Nov, Active Albuterol Sulfate 90 mcg/actuation Inhalation every 4 hrs inhale 1 puff by inhalation route every 4 hours as needed 4h Jun, 30 days Active Nitroglycerin 0.4 MG Sublingual Once a day 1 patch to skin remove after 12 hours 24h Active Warfarin Sodium 7.5 MG Orally 3x weekly 1 tablet Active Tramadol HCl 50 MG Orally every 6 hrs 1 tablet as needed 6h Active Warfarin Sodium 5 mg Orally 4x weekly 1 tablet Active Albuterol Sulfate 2.5 mg /3 mL (0.083 %) 1 Each by Inhalation route every 4 hours for cough and wheezePRNfor wheezing or cough Nov, Active RESULTS No Results PROCEDURES Procedure Date Ordered Result Body Site [facility] VISIT ESTABLISHED PATIENT September 03, 2017 INSTRUCTIONS MEDICATIONS ADMINISTERED No Known Medications [...]
--- OUTSIDE RECORDS SUMMARY | 2018-07-26 22:05 | XMS REPORT ---
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 Active 533430964 Problem Hyperlipidemia, unspecified hyperlipidemia type E78.5 Active 92429425 Problem Morbid obesity with BMI of 50.0-59.9, adult Z68.43 Active 397823481 Problem Arthritis M19.90 Active 6376319 Problem Personal history of pulmonary embolism Z86.711 Active 883807096 Problem Gastroesophageal reflux disease without esophagitis K21.9 Active 752534546 Problem Migraine with aura and without status migrainosus, not intractable G43.109 Active 4153102 Problem Coronary artery disease I25.10 Active 88652787 Problem Intractable migraine without aura and with status migrainosus G43.011 Active 059247720 Problem Hypothyroidism E03.9 Active 38396954 Problem Renal stones N20.0 Active 39790576 Problem Acute gout involving toe of right foot, 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 Active 832240183 ALLERGIES No Information ENCOUNTERS Encounter Location Date Diagnosis [facility] [id number] [address] Dec, [facility] [id number], [place] [address] Dec, BMI 50.0-59.9, adult Z68.43 ; Migraine with aura and without status migrainosus, not intractable G43.109 and Dehydration symptoms R63.8 [facility] [id number], [place] [address] Oct, [facility] [id number] [place] [address] 89069- 3561 Oct, [place] [id number] [place] [address] 46337- 2863 Oct, [facility] [id number] [place] [address] 74020- 0998 September, [place] [id number] [place] [address] 28103- 3831 September, Type 2 diabetes mellitus with diabetic neuropathic arthropathy, 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 ; Hyperlipidemia, unspecified hyperlipidemia type E78.5 ; Personal history of pulmonary embolism Z86.711 ; Coronary artery disease I25.10 and Hypothyroidism E03.9 [place] [id number] [place] [address] 08626- 7624 September, [place] [id number] [place] [address] 54449- 8478 Aug, Type 2 diabetes mellitus with diabetic [...] without aura and with status migrainosus G43.011 [place] [id number] [place] [address] 58600- 6530 Aug, [place] [id number] [place] [address] 96431- 9594 Aug, [place] [id number] [place] [address] 67962- 4632 Jul, Renal stones N20.0 [facility] [id number] [place] [address] 55861 -3753 Jun, Back pain M54.9 ; Kidney stones N20.0 and BMI 50.0-59.9, adult Z68.43 [place] [id number] [place] [address] 01888- 8815 Jun, [place] [id number] [place] [address] 65280- 9979 Apr, [place] [address] 12761- 7622 Apr, [place] [address] 78513- 9817 Apr, Right foot pain M79.671 ; Acute gout involving toe of right foot, 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 and Arthritis M19.90 [place] [address] 13355- 4436 06 Apr, 2017 Gastroesophageal reflux disease without esophagitis K21.9 [place] [address] 92723- 9885 16 Mar, 2017 Hypothyroidism, unspecified E03.9 [place] [id number] [place] [address] 74655- 1203 Feb, [place] [id number] [place] [address] 43700- 1175 25 Jan, 2017 Cervicalgia of avgammse-xorwyvd-eopte region M54.2 and Persistent headaches R51 [place] [id number] [place] [address] 29571- 5438 Jan, [place] [id number] [place] [address] 22090- 5378 12 Jan, 2017 Intractable migraine without aura and with status migrainosus G43.011 ; Cervical spine pain M54.2 ; Hyperlipidemia, unspecified hyperlipidemia type E78.5 ; Hypothyroidism E03.9 and Metabolic syndrome E88.81 [place] [id number] [place] [address] 81329- 8205 11 Jan, 2017 Hypothyroidism, unspecified E03.9 [place] [id number] [place] [address] 41759- 3106 Dec, Hypothyroidism, unspecified E03.9 [place] [id number] [place] [address] 80627- 9920 Dec, Hypothyroidism E03.9 [place] [id number] [place] [address] 48287- 0939 Nov, Laceration of left great toe w/o foreign body w/o damage to nail, initial encounter S91.112A [facility] [address] [place] [id number] [place] [address] 45142 -5236 Oct, Pain in left knee M25.562 and Arthritis M19.[address] 57655- 7634 Oct, Hypothyroidism, unspecified E03.9 and Hyperlipidemia, unspecified hyperlipidemia type E78.5 [address] [id number] [place] [address] 23643- 6912 Oct, Gastroesophageal reflux disease without esophagitis K21.9 [place] [id number] [place] [address] 18017- 6818 14 Oct, 2016 Metabolic syndrome E88.81 ; Personal history of pulmonary embolism Z86.711 ; Other specified hypothyroidism E03.8 and Hyperlipidemia, unspecified hyperlipidemia type E78.5 [id number] [place] [address] 67242- 7662 13 Oct, 2016 Personal history of pulmonary embolism Z86.711 ; Dysuria R30.0 ; Metabolic syndrome E88.81 ; Other specified hypothyroidism E03.8 ; Hyperlipidemia, unspecified hyperlipidemia type E78.5 and Morbid obesity with BMI of 50.0-59.9, adult Z68.43 [place] [id number] [place] [address] 08935- 7144 September, [facility] [address] [place] [id number] [place] [address] 99784 -3495 September, Wrist pain, left M25.532 and Acute pain of left knee M25.562 [place] [id number] [place] [address] 15296- 4748 Jul, Dysuria R30.0 [place] [id number] [place] [address] 47903- 6188 Jul, Dysuria R30.0 [place] [address] 86418- 2885 Jul, Left lower quadrant pain R10.32 [place] [id number] [place] [address] 61818- 6031 Jul, [place] [address] 80538- 0099 Jul, Coronary artery disease I25.10 ; Family history of diabetes mellitus Z83.3 ; Morbid obesity with BMI of 50.0-59.9, adult Z68.43 ; Metabolic syndrome E88.81 ; Personal history of pulmonary embolism Z86.711 ; Gastroesophageal reflux disease without esophagitis K21.9 ; Hypothyroidism, unspecified E03.9 ; Hyperlipidemia, unspecified hyperlipidemia type E78.5 and Left lower quadrant pain R10.32 [facility] [id number] [place] [address] 45675 -9819 Jul, [facility] [id number] [place] [address] 32622 -9928 Jul, Morbid obesity with BMI of 50.0-59.9, adult Z68.43 [facility] [id number] [place] [address] 08043 -1817 Jul, Generalized abdominal pain R10.84 [facility] [id number] [place] [address] 90526 -1535 Jun, Muscle strain of right upper back, initial encounter S29.012A [facility] [id number] [place] [address] 61965 -8288 16 Maldonado, 2017 Foreign body (FB) in soft tissue M79.5 [place] [id number] [place] [address] 06575- 1951 Mar, Hypothyroidism, unspecified E03.9 and Arthritis M19.90 [place] [id number] [place] [address] 58973- 4958 13 Feb, 2016 Coronary artery disease I25.10 ; Morbid obesity with BMI of 50.0-59.9, adult Z68.43 ; Metabolic syndrome E88.81 ; Gastroesophageal reflux disease without esophagitis K21.9 ; Hypothyroidism, unspecified E03.9 ; Personal history of pulmonary embolism Z86.711 and Hyperlipidemia, unspecified hyperlipidemia type E78.5 [place] [id number] [place] [address] 54404- 8907 10 Feb, 2016 [facility] [id number] [place] [address] 70531 -1064 12 Jan, 2016 Acute right-sided thoracic back pain M54.6 [place] [id number] [place] [address] 42436- 0796 Jan, Acute pain of left knee M25.562 [place] [id number] [place] [address] 51947- 4240 Dec, Dysuria R30.0 ; Metabolic syndrome E88.81 ; Acute pain of left knee M25.562 ; Acute cystitis with hematuria N30.01 and Acute left eye pain H57.12 [place] [id number] [place] [address] 18609- 3982 Dec, [place] [id number] [place] [address] 67855- 3700 Dec, [place] [id number] [place] [address] 16742- 1890 Dec, Hypothyroidism, unspecified E03.9 [place] [id number] [place] [address] 10539- 3044 Dec, [facility] [place] [address] [address]- 7271 Nov, Peripheral edema R60.9 and Acute pain of left knee M25.562 [facility] [id number] [place] [address] 40835 -7472 September, [address] [id number] [place] [address] 35132- 1459 September, Metabolic syndrome E88.81 and Allergy, subsequent encounter T78.40XD [facility] [address] [place] [address] 54928 -6287 September, Muscle strain T14.8 [address] [id number] [place] [address] 67309- 4465 Aug, Chest pressure R07.89 ; Metabolic syndrome E88.81 ; Morbid obesity with BMI of 50.0-59.9, adult Z68.43 ; Esophageal reflux 530.81 and Shortness of breath R06.[address] [place] [address] 24817- 3424 Aug, [address] [id number] [place] [address] 33612- 8569 Aug, [id number] [place] [address] 03774- 8445 Aug, Hypothyroidism, unspecified E03.9 [id number] [place] [address] 88716- 2161 Aug, Routine health maintenance Z00.00 [facility] [address] [place] [address] 24124 -7473 Aug, [id number] [place] [address] 94630- 1677 Jul, Routine health maintenance Z00.00 ; Family history of diabetes mellitus Z83.3 ; Family history of cancer Z80.9 and Morbid obesity with BMI of 50.0-59.9, adult Z68.43 [facility] [address] [place] [address] 43003 -6021 28 Jul, 2015 Allergic rhinitis J30.9 and Postnasal drip R09.82 [facility] [id number] [place] [address] 31681- 7792 18 Jul, 2015 Influenza J11.1 [facility] [id number] [place] [address] 30303 -2683 08 Jul, 2015 Dysuria R30.0 [facility] [id number] [place] [address] 66256- 3297 Apr, [place] [address] 66444- 1502 Mar, Acute upper respiratory infection, unspecified J06.9 and Hypothyroidism E03.9 [place] [id number] [place] [address] 49001- 5865 Mar, [place] [id number] [place] [address] 75088- 8449 Feb, Coronary artery disease I25.10 [place] [id number] [place] [address] 03436- 1615 Feb, Left foot pain M79.672 [place] [id number] [place] [address] 80158- 3066 Jan, UTI (urinary tract infection) 599.0 [place] [id number] [place] [address] 91129- 6714 Jan, Urinary tract infection, site not specified 599.0 [facility] [id number] [place] [address] 97676- 1996 Jan, Urinary tract infection, site not specified 599.0 [facility] [id number] [place] [address] 31480- 9657 Jan, [facility] [id number] [place] [address] 18404- 4912 Dec, Headache 784.0 [facility] [address], [place] [address]- 9525 Dec, Urinary tract infection, site not specified 599.0 [facility] [address] [place] [address] 34275- 1454 Dec, Urinary tract infection, site not specified 599.0 [facility] [address] [place] [address] 89646- 2213 Dec, Urinary tract infection, site not specified 599.0 [facility] [address] [place] [address] 89572- 9730 Nov, Unspecified sleep apnea 780.57 ; Encounter for long-term ( current) use of anticoagulants V58.61 ; Routine general medical examination at [facility] V70.0 and Arthritis of both knees 716.96 [facility] [id number] [place] [address] 50302- 7007 September, Cat bite of hand 882.0 and Rectal bleeding 569.3 [facility] [address] [address]- 2757 Aug, [facility] [address] [place] [address] 29092- 4494 Aug, [facility] [address] [address]- 4841 Jul, [facility] [address], [place] [address]- 1036 Jul, [facility] [address], [place] [address]- 3825 Jul, [facility] [id number] [place] [address] 16349- 3737 Jul, [facility] [address] [address]- 6309 Jul, [facility] [id number] [place] [address] 45988- 7618 Jul, [facility] [place] [facility] [address] [id number] [place] [address]- 7836 Jul, [facility] [place] [facility] [address] [id number] [place] [address]- 1830 Jul, [facility] [place] [facility] [address] [id number] [place] [address]- 9378 May, [facility] [place] [facility] [address] [id number] [place] [address]- 7111 May, [facility] [place] [facility] [address] [id number] [place] [address]- 1754 May, [facility] [place] [facility] [address] [id number] [place] [address]- 2789 May, [facility] [place] [facility] [address] [id number] [place] [address]- 0744 May, [facility] [place] [facility] [address] [id number] [place] [address]- 6095 May, [facility] [place] [facility] [address] [id number] [place] [address]- 4894 May, [facility] [place] [facility] [address] [facility] [id number] [place] [address]- 0782 Mar, [facility] [place] [facility] [address] [id number] [address]- 3615 Mar, [facility] [place] [facility] [address] [id number] [address]- 5749 Jan, [facility] [place] [facility] [address] [id number] [place] [address]- 7388 Jan, [facility] [place] [facility] [address] [id number] [place] [address]- 8439 Jan, [facility] [place] [facility] [address] [id number] [place] [address]- 3495 Jan, [facility] [place] [facility] [address] [id number] [place] [address]- 7464 Jan, [facility] [place] [facility] [address] [id number] [place] [address]- 2318 Jan, [facility] [place] [facility] [address] [id number] [place] [address]- 6523 Dec, [facility] [place] [facility] [address] [id number] [place] [address]- 3202 Dec, [facility] [place] [facility] [address] [id number] [place] [address]- 4795 Dec, [facility] [place] [facility] [address] [id number] [place] [address]- 5509 Dec, [facility] [place] [facility] [address] [id number] [place] [address]- 3056 Dec, [facility] [place] [facility] [address] [id number] [place] [address]- 9552 Dec, [facility] [place] [facility] [address] [id number] [place] [address]- 4471 Dec, [facility] [place] [facility] [address] [id number] [place] [address]- 0697 Dec, [facility] [place] [facility] [address] [id number] [place] [address]- 8231 Dec, [facility] [place] [facility] [address] [id number] [place] [address]- 0153 Dec, [facility] [place] [facility] [address] [id number] [place] [address]- 0795 Nov, [facility] [place] [facility] [address] [id number] [place] [address]- 3903 Nov, [facility] [place] [facility] [address] [id number] [place] [address]- 6181 September, [facility] [place] [facility] [address] [id number] [place] [address]- 7125 September, [facility] [place] [facility] [address] [id number] [place] [address]- 3028 September, [facility] [place] [facility] [address] [id number] [place] [address]- 3779 September, [facility] [place] [facility] [address] [id number] [place] [address]- 1194 Aug, [facility] [place] [facility] [address] [id number] [place] [address]- 0268 Aug, [facility] [place] [facility] [address] [id number] [place] [address]- 2991 Aug, [facility] [place] [facility] [address] [id number] [place] [address]- 6514 Aug, [facility] [place] [facility] [address] [id number] [place] [address]- 2012 Aug, [facility] [place] [facility] [address] [id number] [place] [address]- 5166 Aug, [facility] [place] [facility] [address] [id number] [place] [address]- 1121 Aug, [facility] [place] [facility] [address] [id number] [place] [address]- 6126 Aug, [facility] [place] [facility] [address] [id number] [place] [address]- 6631 Aug, [facility] [place] [facility] [address] [id number], [place] [address]- 7296 Aug, [facility] [place] [facility] [address] [id number] [place] [address]- 3957 Aug, [facility] [place] [facility] [address] [id number] [place] [address]- 5454 Aug, [facility] [place] [facility] [address] [id number] [place] [address]- 4495 Jul, [facility] [place] [facility] [address] [id number] [place] [address]- 6207 20 Jul, 2013 [facility] [place] [facility] [address] [id number] [place] [address]- 1634 Jul, [facility] [place] [facility] [address] [id number] [place] 7226 Jul, [facility] [place] [facility] [address] [id number] [place] [address]- 9316 Jul, [facility] [place] [facility] [address] [id number] [place] [address]- 2163 Jul, [facility] [place] [facility] [address] [id number] [place] [address]- 5625 05 Jul, 2013 [facility] [place] [facility] [address] [id number] [place] [address]- 9766 Jul, [facility] [place] [facility] [address] [id number] [place] [address]- 7403 Jul, [facility] [place] [facility] [address] [id number] [place] [address]- 7722 Jul, [facility] [place] [facility] [address] [id number] [place] [address]- 1180 Jun, [facility] [place] [facility] [address] [facility] [id number] [place] [address]- 7760 28 Jun, 2013 [facility] [place] [facility] [address] [id number] [place] [address]- 8346 17 Jun, 2013 [facility] [place] [facility] [address] [facility] [id number] [place] [address]- 1100 17 Jun, 2013 [facility] [place] [facility] [address] [id number] [place] 7506 Jun, [facility] [place] [facility] [address] [facility] [id number] [place] [address]- 4156 Jun, [facility] [place] [facility] [address] [facility] [id number] [place] [address]- 5632 Jun, [facility] [place] [facility] [address] [id number] [place] [address]- 3977 Jun, [facility] [place] [facility] [address] [id number] [place] [address] Jun, [facility] [place] [facility] [address] [id number] [place] [address] [address] Jun, [facility] [place] [facility] [address] [id number] [place] [address] Jun, [facility] [place] [facility] [address] [id number] [place] [address] Jun, [facility] [place] [facility] [address] [id number] [place] [address] May, [facility] [place] [facility] [address] [id number] [place] [address] May, [facility] [place] [facility] [address] [id number] [place] [address] May, [facility] [place] [facility] [address] [id number] [place] [address] May, [facility] [place] [facility] [address] [id number] [place] [address] May, [facility] [place] [facility] [address] [id number] [place] [address] May, [facility] [place] [facility] [address] [id number] [place] [address] May, [facility] [place] [facility] [address] [id number] [place] [address] May, [facility] [place] [facility] [address] [id number] [place] [address] May, [facility] [place] [facility] [address] [id number] [place] [address] May, [facility] [place] [facility] [address] [id number] [place] [address]- [address] 08 May, 2013 [facility] [address] [id number] [place] [address] May, [facility] [address] [id number] [place] [address] May, [facility] [address] [id number] [place] [address] May, [facility] [address] [id number] [place] [address] May, [facility] [address] [id number] [place] [address] Apr, [facility] [address] [id number] [place] [address] Apr, [facility] [address] [id number] [place] [address] Apr, [facility] [address] [id number] [place] [address] Apr, [facility] [address] [id number] [place] [address]- [address] Mar, [facility] [address] [id number] [place] [address] Mar, [facility] [address] [id number] [place] [address] Mar, [facility] [address] [id number] [place] [address] Mar, [facility] [place] [facility] [address] [id number] [place] [address] Mar, [facility] [address] [id number] [place] [address] Mar, [facility] [address] [id number] [place] [address]- [address] Mar, [facility] [place] [facility] [address] [id number] [place] [address] Mar, [facility] [place] [facility] [address] [id number] [place] [address] Mar, [facility] [place] [facility] [address] [id number] [place] [address] Mar, [facility] [place] [facility] [address] [id number] [place] [address] Mar, [facility] [place] [facility] [address] [id number] [place] [address] Mar, [facility] [place] [facility] [address] [id number] [place] [address]- 1350 Feb, [facility] [place] [facility] [address] [id number] [place] [address] 18 Jan, 2013 [facility] [place] [facility] [address] [id number] [place] [address] 17 Jan, 2013 [facility] [place] [facility] [address] [id number] [place] [address] 06 Jan, 2013 [facility] [place] [facility] [address] [id number] [address] 04 Jan, 2013 [facility] [place] [facility] [address] [id number], [place] [address] Jan, [facility] [place] [facility] [address] [id number], [place] [address] Dec, [facility] [place] [facility] [address] [id number] [place] [address] Dec, [facility] [place] [facility] [address] [id number] [place] [address] Dec, [facility] [place] [facility] [address] [id number], [place] [address] Dec, [facility] [place] [facility] [address] [id number], [place] [address] Dec, [facility] [place] [facility] [address] [id number] [place] [address] Dec, [facility] [place] [facility] [address] [facility] [id number] [place] [address] Dec, [facility] [place] [facility] [address] [facility] [id number] [place] [address]67 Dec, [facility] [place] [facility] [address] [facility] [id number] [place] [address] Nov, [facility] [place] [facility] [address] [facility] [id number] [place] [address] Nov, [facility] [place] [facility] [address] [facility] [id number] [place] [address] Nov, [facility] [place] [facility] [address] [facility] [id number] [place] [address] Nov, [facility] [place] [facility] [address] [facility] [id number] [place] [address] Nov, [facility] [place] [facility] [address] [facility] [id number] [place] [address] Nov, [facility] [place] [facility] [address] [facility] [id number] [place] [address] Oct, [facility] [address] [facility] [id number] [id number] Oct, [facility] [address] [id number] [place] [id number] Oct, [facility] [address] [id number] [place] [id number] Oct, [facility] [address] [facility] [id number] [place] [id number] Oct, [facility] [place] [facility] [address] [facility] [id number] [place] [address] Oct, [facility] [place] [facility] [address] [facility] [id number] [place] [address] Oct, [facility] [address] [id number] [place] [address] 1794 Oct, [facility] [place] [facility] [address] [id number] [place] [address] Oct, [facility] [place] [facility] [address] [id number] [place] [address] 0427 Oct, [facility] [place] [facility] [address] [id number] [place] [address]9 Oct, [facility] [place] [facility] [address] [id number] [place] [address] September, [facility] [place] [facility] [address] [id number] [place] [address] Aug, [facility] [place] [facility] [address] [id number] [place] [address]77 Aug, [facility] [place] [facility] [address] [id number] [place] [address] 3669 Aug, [facility] [place] [facility] [address] [id number] [place] [address] Aug, [facility] [place] [facility] [address] [id number] [place] [address] Jul, [facility] [place] [facility] [address] [id number], [place] [address] Jul, [facility] [place] [facility] [address] [id number], [place] [address] Jul, [facility] [place] [facility] [address] [id number] [place] [address]- [address]684 Jul, [facility] [place] [facility] [address] [id number] [place] [address]- 94[address] Jul, [facility] [place] [facility] [address] [id number] [place] [address] Jun, [facility] [place] [facility] [address] [id number] [place] [address]24 13 Jun, 2012 [facility] [address] [id number] [place] [address]- [address] 11 Jun, 2012 [facility] [address] [id number] [place] [address] May, [facility] [address] [id number] [place] [address] 24 May, 2012 [facility] [address] [id number] [place] [address]- [address] 14 May, 2012 [facility] [address] [id number] [place] [address] 2806 May, [facility] [address] [id number] [place] [address] May, [facility] [address] [id number] [place] [address] May, [facility] [address] [id number] [place] [address] 18 Apr, 2012 [facility] [address] [id number] [place] [address] 18 Apr, 2012 [facility] [address] [id number] [place] [address]- 6527 13 Apr, 2012 [facility] [address] [id number] [place] [address]25 13 Apr, 2012 [facility] [address] [id number] [place] [address]- 4[address] 13 Apr, 2012 [facility] [address] [id number] [place] [address] 4233 11 Apr, 2012 [facility] [address] [id number] [place] [address] 0539 11 Apr, 2012 [facility] [address] [id number] [place] [address] 2984 Mar, [facility] [address] [id number] [place] [address]104 Mar, [facility] [place] [facility] [address] [id number] [place] [address]326 Mar, [facility] [place] [facility] [address] [id number] [place] [address]- 0936 Mar, [facility] [place] [facility] [address] [id number] [place] [address]- 7166 Jan, [facility] [place] [facility] [address] [id number] [place] [address] 8157 Jan, [facility] [place] [facility] [address] [id number] [place] [address]- [address] Jan, [facility] [address] [id number] [place] [address]326 Jan, [facility] [address] [id number] [id number] Dec, [facility] [address] [id number] [place] [address]35 Dec, [facility] [address] [id number] [id number] Dec, [facility] [address] [id number] [place] [address]- [address]106 Dec, [facility] [place] [facility] [address] [id number] [place] [address]- 2736 Dec, [facility] [place] [facility] [address] [id number] [place] [address] 2546 Dec, [facility] [place] [facility] [address] [id number] [place] [address]- 4606 Nov, [facility] [place] [facility] [address] [id number] [place] [address]- 7786 Nov, [facility] [place] [facility] [address] [id number] [place] [address]- 2119 Nov, IMMUNIZATIONS No Known Immunizations SOCIAL HISTORY Never Assessed REASON FOR VISIT Medication refill request PLAN OF CARE VITAL SIGNS MEDICATIONS Medication Instructions Dosage Frequency Start Date End Date Duration Status Levothyroxine Sodium 150 MCG TAKE ONE TABLET BY MOUTH ONCE DAILY IN THE MORNING ON AN EMPTY STOMACH 30 Active RESULTS No Results PROCEDURES No Known [...]
--- OUTSIDE RECORDS SUMMARY | 2018-07-26 22:06 | XMS REPORT ---
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 Active 610155642 Problem Gastroesophageal reflux disease without esophagitis K21.9 Active 669248600 Problem Coronary artery disease I25.10 Active 91602619 Problem Renal stones N20.0 Active 60488967 Problem Hypothyroidism E03.9 Active 58171082 Problem Hyperlipidemia, unspecified hyperlipidemia type E78.5 Active 77874166 Problem Acute gout involving toe of right foot, 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 Active 294331614 Problem Intractable migraine without aura and with status migrainosus G43.011 Active 150101445 ALLERGIES No Information ENCOUNTERS Encounter Location Date Diagnosis [facility] [address], [place] [address] Dec, [facility] [id number] [place] [address] 29338- 9817 Oct, [facility] [id number] [place] [address] 71755- 2436 Oct, [facility] [id number] [place] [address] 76182- 1089 Oct, [facility] [address], [place] [address] September, [facility] [id number] [place] [address] 69151- 7113 September, Type 2 diabetes mellitus with diabetic neuropathic arthropathy, 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 ; Hyperlipidemia, unspecified hyperlipidemia type E78.5 ; Personal history of pulmonary embolism Z86.711 ; Coronary artery disease I25.10 and Hypothyroidism E03.9 [facility] [id number] [place] [address] 89030- 0350 September, [facility] [id number] [place] [address] 63240- 0817 Aug, Type 2 diabetes mellitus with diabetic [...] without aura and with status migrainosus G43.011 [facility] [id number] [place] [address] 83703- 7001 Aug, [facility] [id number] [place] [address] 73243- 8302 Aug, [facility] [id number] [place] [address] 29875- 7158 Jul, Renal stones N20.0 [facility] [id number] [place] [address] 38783 -3419 Jun, Back pain M54.9 ; Kidney stones N20.0 and BMI 50.0-59.9, adult Z68.43 [facility] [id number] [place] [address] 49769- 1430 Jun, [facility] [id number] [place] [address] 95338- 1194 Apr, [facility] [id number] [place] [address] 87090- 9296 15 Apr, 2017 [place] [address] 11992- 4732 Apr, Right foot pain M79.671 ; Acute gout involving toe of right foot, 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 and Arthritis M19.90 [place] [address] 49693- 0524 06 Apr, 2017 Gastroesophageal reflux disease without esophagitis K21.9 [place] [address] 93398- 9764 16 Mar, 2017 Hypothyroidism, unspecified E03.9 [place] [address] 93534- 5501 Feb, [facility] [place] [address] 86087- 5388 25 Jan, 2017 Cervicalgia of tuvqdbru-bzwalin-ymtgy region M54.2 and Persistent headaches R51 [facility] [id number] [place] [address] 04718- 7520 20 Jan, 2017 [facility] [id number] [place] [address] 93624- 1389 12 Jan, 2017 Intractable migraine without aura and with status migrainosus G43.011 ; Cervical spine pain M54.2 ; Hyperlipidemia, unspecified hyperlipidemia type E78.5 ; Hypothyroidism E03.9 and Metabolic syndrome E88.81 [facility] [id number] [place] [address] 40597- 5212 11 Jan, 2017 Hypothyroidism, unspecified E03.9 [facility] [id number] [place] [address] 69795- 9998 Dec, Hypothyroidism, unspecified E03.9 [facility] [id number] [place] [address] 21312- 3961 Dec, Hypothyroidism E03.9 [place] [address] 95005- 0570 Nov, Laceration of left great toe w/o foreign body w/o damage to nail, initial encounter S91.112A [facility] [place] [id number] [place] [address] 13882 -6647 Oct, Pain in left knee M25.562 and Arthritis M19.[address] 19997- 9780 Oct, Hypothyroidism, unspecified E03.9 and Hyperlipidemia, unspecified hyperlipidemia type E78.[address] 43875- 3205 Oct, Gastroesophageal reflux disease without esophagitis K21.9 [facility] [id number] [place] [address] 06663- 4710 14 Oct, 2016 Metabolic syndrome E88.81 ; Personal history of pulmonary embolism Z86.711 ; Other specified hypothyroidism E03.8 and Hyperlipidemia, unspecified hyperlipidemia type E78.5 [facility] [id number] [place] [address] 03200- 4289 13 Oct, 2016 Personal history of pulmonary embolism Z86.711 ; Dysuria R30.0 ; Metabolic syndrome E88.81 ; Other specified hypothyroidism E03.8 ; Hyperlipidemia, unspecified hyperlipidemia type E78.5 and Morbid obesity with BMI of 50.0-59.9, adult Z68.43 [place] [id number] [place] [address] 82973- 6945 September, [facility] [place] [id number] [place] [address] 35184 -0676 September, Wrist pain, left M25.532 and Acute pain of left knee M25.[address] 15782- 4081 Jul, Dysuria R30.0 [facility] [place] [id number] [place] [address] 41347- 3312 Jul, Dysuria R30.0 [place] [id number] [place] [address] 02321- 7710 16 Jul, 2016 Left lower quadrant pain R10.[address] 08832- 7160 14 Jul, [address] 98155- 1081 09 Jul, 2016 Coronary artery disease I25.10 ; Family history of diabetes mellitus Z83.3 ; Morbid obesity with BMI of 50.0-59.9, adult Z68.43 ; Metabolic syndrome E88.81 ; Personal history of pulmonary embolism Z86.711 ; Gastroesophageal reflux disease without esophagitis K21.9 ; Hypothyroidism, unspecified E03.9 ; Hyperlipidemia, unspecified hyperlipidemia type E78.5 and Left lower quadrant pain R10.32 [facility] [address] 26281 -7334 09 Jul, 2016 [facility] [address] 04045 -1783 08 Jul, 2016 Morbid obesity with BMI of 50.0-59.9, adult Z68.43 [facility] [address] 38268 -7426 07 Jul, 2016 Generalized abdominal pain R10.84 [facility] [address] 86879 -5872 02 Jun, 2016 Muscle strain of right upper back, initial encounter S29.012A [facility] [address] 05905 -9402 May, Foreign body (FB) in soft tissue M79.[address] 39744- 9262 Mar, Hypothyroidism, unspecified E03.9 and Arthritis M19.[address] 77240- 2257 Feb, Coronary artery disease I25.10 ; Morbid obesity with BMI of 50.0-59.9, adult Z68.43 ; Metabolic syndrome E88.81 ; Gastroesophageal reflux disease without esophagitis K21.9 ; Hypothyroidism, unspecified E03.9 ; Personal history of pulmonary embolism Z86.711 and Hyperlipidemia, unspecified hyperlipidemia type E78.5 [facility] [id number] [place] [address] 23235- 9025 Feb, [facility] [address] 78508 -4220 Jan, Acute right-sided thoracic back pain M54.6 [place] [address] 97684- 5815 Jan, Acute pain of left knee M25.562 [place] [id number] [place] [address] 54597- 7957 Dec, Dysuria R30.0 ; Metabolic syndrome E88.81 ; Acute pain of left knee M25.562 ; Acute cystitis with hematuria N30.01 and Acute left eye pain H57.12 [place] [id number] [place] [address] 89450- 1413 Dec, [place] [address] 16494- 2999 Dec, [facility] [id number] [place] [address] 99944- 4412 Dec, Hypothyroidism, unspecified E03.9 [place] [id number] [place] [address] 08284- 1777 Dec, [place] [address] 88442- 1737 Nov, Peripheral edema R60.9 and Acute pain of left knee M25.562 [facility] [id number] [place] [address] 04909 -7511 September, [place] [address] 07423- 9830 September, Metabolic syndrome E88.81 and Allergy, subsequent encounter T78.40XD [facility] [id number] [place] [address] 43082 -0298 September, Muscle strain T14.8 [place] [id number] [place] [address] 18640- 8640 Aug, Chest pressure R07.89 ; Metabolic syndrome E88.81 ; Morbid obesity with BMI of 50.0-59.9, adult Z68.43 ; Esophageal reflux 530.81 and Shortness of breath R06.02 [place] [address] 88561- 6835 Aug, [place] [address] 94384- 0900 Aug, [place] [address] 87921- 5707 Aug, Hypothyroidism, unspecified E03.9 [place] [address] 14327- 3343 Aug, Routine health maintenance Z00.00 [facility] [place] [id number] [place] [address] 45267 -7037 Aug, [facility] [place] [id number] [place] [address] 33596- 0040 31 Jul, 2015 Routine health maintenance Z00.00 ; Family history of diabetes mellitus Z83.3 ; Family history of cancer Z80.9 and Morbid obesity with BMI of 50.0-59.9, adult Z68.43 [facility] [place] [id number] [place] [address] 98244 -4260 Jul, Allergic rhinitis J30.9 and Postnasal drip R09.82 [place] [address] 84989- 2054 18 Jul, 2015 Influenza J11.1 [facility] [place] [address] [place] [address] -1835 Jul, Dysuria R30.0 [facility] [address], [place] [address]- 2241 Apr, [facility] [id number] [place] [address] 22004- 4268 Mar, Acute upper respiratory infection, unspecified J06.9 and Hypothyroidism E03.9 [facility] [address], [place] [address]- 4979 Mar, [facility] [id number] [place] [address] 06174- 1370 Feb, Coronary artery disease I25.10 [facility] [address] [place] [address] 01027- 9261 Feb, Left foot pain M79.672 [facility] [id number] [place] [address] 72363- 6075 Jan, UTI (urinary tract infection) 599.0 [facility] [address], [place] [address]- 3612 Jan, Urinary tract infection, site not specified 599.0 [facility] [address], [place] [address]- 4806 Jan, Urinary tract infection, site not specified 599.0 [facility] [address], [place] [address]- 0988 Jan, [facility] [address] [id number] [address]- 6040 Dec, Headache 784.0 [facility] [address], [place] [address]- 2968 Dec, Urinary tract infection, site not specified 599.0 [facility] [address], [place] [address]- 4515 Dec, Urinary tract infection, site not specified 599.0 [place] [address], [place] [address]- 1273 Dec, Urinary tract infection, site not specified 599.0 [facility] [address], [place] [address]- 3922 Nov, Unspecified sleep apnea 780.57 ; Encounter for long-term ( current) use of anticoagulants V58.61 ; Routine general medical examination at health care facility V70.0 and Arthritis of both knees 716.96 [facility] [address], [place] [address]- 1005 September, Cat bite of hand 882.0 and Rectal bleeding 569.3 [facility] [id number] [place] [address] 56414- 1296 Aug, [facility] [id number] [place] [address] 80135- 9687 Aug, [facility] [id number] [address]- 8959 Jul, [facility] [address], [place] [address]- 1708 Jul, [facility] [address], [place] [address]- 6091 Jul, [facility] [address], [place] [address]- 6798 Jul, [facility] [address], [place] [address]- 1076 Jul, [facility] [address], [place] [address]- 9194 Jul, [facility] [address] [address] 8425 Jul, [facility] [address] 1834 Jul, [facility] [id number] [place] [address] [place] [address]- 0999 May, [facility] [place] [facility] [address] [id number] [place] [address]- 7016 May, [facility] [place] [facility] [address] [id number] [place] [address]- 9532 May, [facility] [place] [facility] [address] [id number] [place] [address]- 8160 May, [facility] [place] [facility] [address] [id number] [place] [address]- 4150 May, [facility] [place] [facility] [address] [id number] [place] [address]- 0456 May, [facility] [place] [facility] [address] [id number] [place] [address]- 9744 May, [facility] [place] [facility] [address] [id number] [place] [address]- 0483 Mar, [facility] [place] [facility] [address] [id number] [place] [address]- 9688 Mar, [facility] [place] [facility] [address] [id number] [place] [address]- 4458 08 Jan, 2013 [facility] [place] [facility] [address] [id number] [place] [address]- 4553 08 Jan, 2013 [facility] [place] [facility] [address] [id number] [place] [address]- 4733 08 Sep, 2013 [facility] [place] [facility] [address] [id number], [place] [address]- 4739 08 Sep, 2013 [facility] [place] [facility] [address] [id number] [place] [address]- 3638 05 Jan, 2013 [facility] [place] [facility] [address] [id number] [place] [address]- 1236 05 Jan, 2013 [facility] [place] [facility] [address] [id number], [place] [address]- 3773 18 Dec, 2013 [facility] [place] [facility] [address] [id number] [place] [address]- 6964 Dec, [facility] [place] [facility] [address] [id number] [place] [address]- 2679 Dec, [facility] [place] [facility] [address] [id number] [place] [address]- 9916 Dec, [facility] [place] [facility] [address] [id number] [place] [address]- 4243 Dec, [facility] [place] [facility] [address] [id number] [place] [address]- 3280 Dec, [facility] [place] [facility] [address] [id number] [place] [address]- 3241 Dec, [facility] [place] [facility] [address] [id number] [place] [address]- 9176 Dec, [facility] [place] [facility] [address] [id number] [place] [address]- 3039 Dec, [facility] [place] [facility] [address] [id number] [place] [address]- 3262 Dec, [facility] [place] [facility] [address] [id number] [place] [address]- 2274 Nov, [facility] [place] [facility] [address] [id number] [place] [address]- 6130 Nov, [facility] [place] [facility] [address] [id number] [place] [address]- 4235 September, [facility] [place] [facility] [address] [id number] [place] [address]- 9791 September, [facility] [place] [facility] [address] [id number] [place] [address]- 7955 September, [facility] [place] [facility] [address] [id number] [place] [address]- 4703 September, [facility] [place] [facility] [address] [id number] [place] [address]- 4009 Aug, [facility] [place] [facility] [address] [id number] [place] [address]- 8811 Aug, [facility] [place] [facility] [address] [id number] [place] [address]- 6157 Aug, [facility] [place] [facility] [address] [id number] [place] [address]- 6340 Aug, [facility] [place] [facility] [address] [id number] [place] [address]- 8547 Aug, [facility] [place] [facility] [address] [id number] [place] [address]- 1266 Aug, [facility] [place] [facility] [address] [id number] [place] [address]- 1631 Aug, [facility] [place] [facility] [address] [id number] [place] [address]- 4153 Aug, [facility] [place] [facility] [address] [id number] [place] [address]- 1810 Aug, [facility] [place] [facility] [address] [id number] [place] [address]- 0642 Aug, [facility] [place] [facility] [address] [id number] [place] [address]- 5506 Aug, [facility] [place] [facility] [address] [id number] [place] [address]- 1346 Aug, [facility] [place] [facility] [address] [id number], [place] [address]- 1306 Jul, [facility] [place] [facility] [address] [id number] [place] [address]- 9437 Jul, [facility] [place] [facility] [address] [id number] [place] [address]- 1835 Jul, [facility] [place] [facility] [address] [id number] [place] [address]- 0544 Jul, [facility] [place] [facility] [address] [id number] [place] [address]- 5178 06 Jul, 2013 [facility] [place] [facility] [address] [id number] [place] [address]- 7826 06 Jul, 2013 [facility] [place] [facility] [address] [id number] [place] [address]- 7948 Jul, [facility] [place] [facility] [address] [id number] [place] [address]- 8254 Jul, [facility] [place] [facility] [address] [id number] [place] [address]- 0480 Jul, [facility] [place] [facility] [address] [id number] [place] [address]- 8775 Jul, [facility] [place] [facility] [address] [id number] [place] [address]- 3395 Jun, [facility] [place] [facility] [address] [facility] [id number] [place] [address]- 9638 Jun, [facility] [place] [facility] [address] [facility] [id number] [place] [address]- 2059 17 Jun, 2013 [facility] [place] [facility] [address] [facility] [id number] [place] [address]- 9905 17 Jun, 2013 [facility] [place] [facility] [address] [facility] [id number] [place] [address]- 4304 13 Jun, 2013 [facility] [place] [facility] [address] [facility] [id number] [place] [address]- 1788 Jun, [facility] [place] [facility] [address] [id number] [place] [address]- 9028 Jun, [facility] [place] [facility] [address] [id number] [place] [address]- 6496 Jun, [facility] [place] [facility] [address] [facility] [id number] [place] [address]- 3355 04 Jun, 2013 [facility] [place] [facility] [address] [facility] [id number] [place] [address]- 1045 Jun, [facility] [place] [facility] [address] [id number] [place] [address]- 9874 Jun, [facility] [place] [facility] [address] [id number] [place] [address]- 2192 Jun, [facility] [place] [facility] [address] [id number] [place] [address]- 2550 May, [facility] [place] [facility] [address] [id number] [place] [address]- 3005 May, [facility] [place] [facility] [address] [id number] [place] [address]- 7425 May, [facility] [place] [facility] [address] [id number] [place] [address]- 6354 May, [facility] [place] [facility] [address] [id number] [place] [address]- 4459 May, [facility] [place] [facility] [address] [id number] [place] [address]- 7239 May, [facility] [place] [facility] [address] [id number] [place] [address]- 9851 May, [facility] [place] [facility] [address] [id number] [place] [address]- 7383 May, [facility] [place] [facility] [address] [id number], [place] [address]- 4191 May, [facility] [place] [facility] [address] [id number], [place] [address]- 9077 May, [facility] [place] [facility] [address] [id number], [place] [address]- 3524 May, [facility] [place] [facility] [address] [id number], [place] [address]- 9890 May, [facility] [place] [facility] [address] [id number] [place] [address]- 0430 May, [facility] [place] [facility] [address] [id number] [place] [address] May, [facility] [address] [id number] [place] [address] May, [facility] [address] [id number] [place] [address] Apr, [facility] [address] [id number] [place] [address] Apr, [facility] [address] [id number] [place] [address] Apr, [facility] [address] [id number] [place] [address] Apr, [facility] [address] [id number] [place] [address] Mar, [facility] [address] [id number] [place] [address] Mar, [facility] [address] [id number] [place] [address] Mar, [facility] [address] [id number] [place] [address] Mar, [facility] [address] [id number] [place] [address] Mar, [facility] [address] [id number] [place] [address] Mar, [facility] [address] [id number] [place] [address] Mar, [facility] [place] [facility] [address] [id number] [place] [address] Mar, [facility] [address] [id number] [place] [address] Mar, [facility] [address] [id number] [place] [address] Mar, [facility] [place] [facility] [address] [id number] [place] [address]- [address] 05 Mar, 2013 [facility] [place] [facility] [address] [id number] [place] [address] Mar, [facility] [place] [facility] [address] [id number] [place] [address]- [address] Feb, [facility] [place] [facility] [address] [id number] [place] [address] 18 Jan, 2013 [facility] [place] [facility] [address] [id number] [place] [address] 17 Jan, 2013 [facility] [place] [facility] [address] [id number] [place] [address]- [address] 06 Jan, 2013 [facility] [place] [facility] [address] [id number] [place] [address] Jan, [facility] [place] [facility] [address] [id number] [place] [address] Jan, [facility] [place] [facility] [address] [id number] [place] [address] Dec, [facility] [place] [facility] [address] [id number] [place] [address] Dec, [facility] [place] [facility] [address] [id number] [place] [address] Dec, [facility] [place] [facility] [address] [id number] [place] [address] Dec, [facility] [place] [facility] [address] [id number] [place] [address] Dec, [facility] [place] [facility] [address] [id number] [place] [address] Dec, [facility] [place] [facility] [address] [id number] [place] [address]- [address] Dec, [facility] [place] [facility] [address] [id number], [place] [address] Dec, [facility] [place] [facility] [address] [id number] [place] [address] Nov, [facility] [place] [facility] [address] [facility] [id number], [place] [address] Nov, [facility] [place] [facility] [address] [id number] [place] [address] Nov, [facility] [place] [facility] [address] [facility] [id number] [place] [address] Nov, [facility] [place] [facility] [address] [id number] [place] [address] Nov, [facility] [place] [facility] [address] [facility] [id number] [place] [address] Nov, [facility] [place] [facility] [address] [facility] [id number], [place] [address] Oct, [facility] [address] [id number][place] [id number] Oct, [facility] [address] [id number][place] [id number] Oct, [facility] [address] [id number][place] [id number] Oct, [facility] [address] [facility] [id number][place] [id number] Oct, [facility] [place] [facility] [address] [facility] [id number], [place] [address] Oct, [facility] [place] [facility] [address] [facility] [id number], [place] [address] Oct, [facility] [place] [facility] [address] [facility] [id number] [place] [address] Oct, [facility] [place] [facility] [address] [facility] [id number], [place] [address] Oct, [facility] [place] [facility] [address] [facility] [id number], [place] [address] Oct, [facility] [address] [id number] [place] [address] Oct, [facility] [place] [facility] [address] [id number] [place] [address] September, [facility] [place] [facility] [address] [id number] [place] [address] Aug, [facility] [place] [facility] [address] [id number] [place] [address] Aug, [facility] [place] [facility] [address] [id number] [place] [address] Aug, [facility] [place] [facility] [address] [id number] [place] [address] Aug, [facility] [place] [facility] [address] [id number] [place] [address] Jul, [facility] [place] [facility] [address] [id number] [place] [address] Jul, [facility] [place] [facility] [address] [id number] [place] [address] Jul, [facility] [place] [facility] [address] [id number] [place] [address] Jul, [facility] [place] [facility] [address] [id number], [place] [address] Jul, [facility] [place] [facility] [address] [id number], [place] [address] Jun, [facility] [place] [facility] [address] [id number] [place] [address] Jun, [facility] [place] [facility] [address] [id number] [place] [address] Jun, [facility] [place] [facility] [address] [id number] [place] [address] May, [facility] [place] [facility] [address] [id number] [place] [address] 24 May, 2012 [facility] [address] [id number] [place] [address] 14 May, 2012 [facility] [address] [id number] [place] [address] May, [facility] [address] [id number] [place] [address] May, [facility] [address] [id number] [place] [address] May, [facility] [address] [id number] [place] [address] Apr, [facility] [address] [id number] [place] [address] 18 Apr, 2012 [facility] [address] [id number] [place] [address] Apr, [facility] [address] [id number] [place] [address] Apr, [facility] [address] [id number] [place] [address] Apr, [facility] [address] [id number] [place] [address] Apr, [facility] [address] [id number] [place] [address] Apr, [facility] [address] [id number] [place] [address] Mar, [facility] [address] [id number] [place] [address] Mar, [facility] [address] [id number] [place] [address] Mar, [facility] [address] [id number] [place] [address] Mar, [facility] [address] [id number], [place] [address] Jan, [facility] [address] [id number], [place] [address] Jan, [facility] [address] [id number], [place] [address] Jan, [facility] [id number], [place] [address] Jan, [facility] [address] [id number] [id number] Dec, [facility] [id number], [place] [address] Dec, [facility] [address] [id number][place] [id number] Dec, [facility] [id number], [place] [address] Dec, [facility] [id number], [place] [address] Dec, [facility] [id number], [place] [address] Dec, [facility] [address] [id number], [place] [address] Nov, [facility] [id number], [place] [address] Nov, [facility] [address] [id number], [place] [address] Nov, IMMUNIZATIONS No Known Immunizations SOCIAL HISTORY Never Assessed REASON FOR VISIT Referral PLAN OF CARE VITAL SIGNS MEDICATIONS Unknown [...]
--- OUTSIDE RECORDS SUMMARY | 2018-07-26 22:06 | XMS REPORT ---
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 Active 915051286 Problem Gastroesophageal reflux disease without esophagitis K21.9 Active 638787339 Problem Coronary artery disease I25.10 Active 05794097 Problem Renal stones N20.0 Active 33899502 Problem Hypothyroidism E03.9 Active 33855320 Problem Hyperlipidemia, unspecified hyperlipidemia type E78.5 Active 02239082 Problem Acute gout involving toe of right foot, 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 Active 817857024 Problem Intractable migraine without aura and with status migrainosus G43.011 Active 057453632 ALLERGIES No Information ENCOUNTERS Encounter Location Date Diagnosis [facility] [address] [address] Dec, [facility] [id number] [place] [address] 13742- 1149 Oct, [facility] [id number] [place] [address] 92625- 5982 Oct, [facility] [id number] [place] [address] 44739- 5983 Oct, [facility] [address] [address] 5[address] September, [facility] [id number] [place] [address] 68713- 0803 September, Type 2 diabetes mellitus with diabetic neuropathic arthropathy, 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 ; Hyperlipidemia, unspecified hyperlipidemia type E78.5 ; Personal history of pulmonary embolism Z86.711 ; Coronary artery disease I25.10 and Hypothyroidism E03.9 [facility] [id number] [place] [address] 16723- 9196 September, [place] [id number] [place] [address] 78040- 2694 Aug, Type 2 diabetes mellitus with diabetic [...] without aura and with status migrainosus G43.011 [place] [id number] [place] [address] 55186- 9667 Aug, [place] [address] [address] [id number] [place] [address] 63087- 6531 Aug, [place] [id number] [place] [address] 32405- 2861 Jul, Renal stones N20.0 [facility] [id number] [place] [address] 43781 -5712 Jun, Back pain M54.9 ; Kidney stones N20.0 and BMI 50.0-59.9, adult Z68.43 [place] [id number] [place] [address] 96715- 4911 Jun, [facility] [id number] [place] [address] 19838- 0358 Apr, [place] [id number] [place] [address] 67839- 8135 15 Apr, 2017 [place] [address] 16050- 5030 Apr, Right foot pain M79.671 ; Acute gout involving toe of right foot, 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 and Arthritis M19.90 [place] [address] 01750- 0789 06 Apr, 2017 Gastroesophageal reflux disease without esophagitis K21.9 [place] [address] 08254- 6397 16 Mar, 2017 Hypothyroidism, unspecified E03.9 [place] [address] 91881- 0406 Feb, [place] [address] 77646- 4500 25 Jan, 2017 Cervicalgia of wvvrjhhn-mbbtkng-uxtxp region M54.2 and Persistent headaches R51 [place] [id number] [place] [address] 14503- 3615 20 Jan, 2017 [place] [id number] [place] [address] 28143- 3413 12 Jan, 2017 Intractable migraine without aura and with status migrainosus G43.011 ; Cervical spine pain M54.2 ; Hyperlipidemia, unspecified hyperlipidemia type E78.5 ; Hypothyroidism E03.9 and Metabolic syndrome E88.81 [place] [id number] [place] [address] 02744- 4564 11 Jan, 2017 Hypothyroidism, unspecified E03.9 [place] [id number] [place] [address] 82502- 5825 Dec, Hypothyroidism, unspecified E03.9 [place] [id number] [place] [address] 39759- 8171 Dec, Hypothyroidism E03.9 [place] [address] 17372- 8204 Nov, Laceration of left great toe w/o foreign body w/o damage to nail, initial encounter S91.112A [facility] [place] [id number] [place] [address] 36172 -6577 Oct, Pain in left knee M25.562 and Arthritis M19.[address] 67225- 9260 Oct, Hypothyroidism, unspecified E03.9 and Hyperlipidemia, unspecified hyperlipidemia type E78.[address] 59027- 7100 Oct, Gastroesophageal reflux disease without esophagitis K21.9 [place] [id number] [place] [address] 04993- 3607 14 Oct, 2016 Metabolic syndrome E88.81 ; Personal history of pulmonary embolism Z86.711 ; Other specified hypothyroidism E03.8 and Hyperlipidemia, unspecified hyperlipidemia type E78.5 [place] [id number] [place] [address] 11163- 1078 13 Oct, 2016 Personal history of pulmonary embolism Z86.711 ; Dysuria R30.0 ; Metabolic syndrome E88.81 ; Other specified hypothyroidism E03.8 ; Hyperlipidemia, unspecified hyperlipidemia type E78.5 and Morbid obesity with BMI of 50.0-59.9, adult Z68.43 [place] [id number] [place] [address] 58890- 4941 September, [facility] [place] [id number] [place] [address] 11907 -9245 September, Wrist pain, left M25.532 and Acute pain of left knee M25.[address] 48845- 7658 Jul, Dysuria R30.0 [place] [id number] [place] [address] 35765- 8060 Jul, Dysuria R30.0 [place] [id number] [place] [address] 37986- 2927 16 Jul, 2016 Left lower quadrant pain R10.[address] 32753- 5925 14 Jul, [address] 03850- 0663 09 Jul, 2016 Coronary artery disease I25.10 ; Family history of diabetes mellitus Z83.3 ; Morbid obesity with BMI of 50.0-59.9, adult Z68.43 ; Metabolic syndrome E88.81 ; Personal history of pulmonary embolism Z86.711 ; Gastroesophageal reflux disease without esophagitis K21.9 ; Hypothyroidism, unspecified E03.9 ; Hyperlipidemia, unspecified hyperlipidemia type E78.5 and Left lower quadrant pain R10.32 [facility] [address] 77113 -6712 09 Jul, 2016 [facility] [address] 03964 -7482 08 Jul, 2016 Morbid obesity with BMI of 50.0-59.9, adult Z68.43 [facility] [address] 33507 -7336 07 Jul, 2016 Generalized abdominal pain R10.84 [facility] [address] 95945 -0539 02 Jun, 2016 Muscle strain of right upper back, initial encounter S29.012A [facility] [address] 67744 -0931 May, Foreign body (FB) in soft tissue M79.[address] 81795- 1679 Mar, Hypothyroidism, unspecified E03.9 and Arthritis M19.[address] 41298- 8489 Feb, Coronary artery disease I25.10 ; Morbid obesity with BMI of 50.0-59.9, adult Z68.43 ; Metabolic syndrome E88.81 ; Gastroesophageal reflux disease without esophagitis K21.9 ; Hypothyroidism, unspecified E03.9 ; Personal history of pulmonary embolism Z86.711 and Hyperlipidemia, unspecified hyperlipidemia type E78.5 [place] [id number] [place] [address] 61566- 6641 Feb, [facility] [address] 31002 -7577 Jan, Acute right-sided thoracic back pain M54.6 [place] [address] 96330- 7678 Jan, Acute pain of left knee M25.562 [place] [address] [address] [id number] [place] [address] 72747- 4980 Dec, Dysuria R30.0 ; Metabolic syndrome E88.81 ; Acute pain of left knee M25.562 ; Acute cystitis with hematuria N30.01 and Acute left eye pain H57.12 [place] [address] [id number] [place] [address] 83409- 3096 Dec, [place] [address] 86572- 4929 Dec, [place] [id number] [place] [address] 99915- 6349 Dec, Hypothyroidism, unspecified E03.9 [place] [address] [address] [id number] [place] [address] 43068- 7482 Dec, [place] [address] 63540- 9887 Nov, Peripheral edema R60.9 and Acute pain of left knee M25.562 [facility] [id number] [place] [address] 35840 -3863 September, [place] [address] 24886- 4050 September, Metabolic syndrome E88.81 and Allergy, subsequent encounter T78.40XD [facility] [id number] [place] [address] 02554 -6623 September, Muscle strain T14.8 [place] [id number] [place] [address] 00564- 1945 Aug, Chest pressure R07.89 ; Metabolic syndrome E88.81 ; Morbid obesity with BMI of 50.0-59.9, adult Z68.43 ; Esophageal reflux 530.81 and Shortness of breath R06.02 [place] [address] 51115- 7869 Aug, [place] [address] 59984- 0840 Aug, [place] [address] 95853- 9033 Aug, Hypothyroidism, unspecified E03.9 [place] [address] 11313- 8513 Aug, Routine health maintenance Z00.00 [facility] [place] [id number] [place] [address] 80203 -0200 Aug, [place] [address] [place] [address] [id number] [place] [address] 00935- 3582 31 Jul, 2015 Routine health maintenance Z00.00 ; Family history of diabetes mellitus Z83.3 ; Family history of cancer Z80.9 and Morbid obesity with BMI of 50.0-59.9, adult Z68.43 [facility] [place] [id number] [place] [address] 79711 -6169 Jul, Allergic rhinitis J30.9 and Postnasal drip R09.82 [place] [address] 94778- 4702 18 Jul, 2015 Influenza J11.1 [facility] [place] [address] [place] [address] -0681 Jul, Dysuria R30.0 [facility] [address], [place] [address]- 1264 Apr, [facility] [address] [place] [address] 13297- 8456 Mar, Acute upper respiratory infection, unspecified J06.9 and Hypothyroidism E03.9 [facility] [address], [place] [address]- 8634 Mar, [facility] [address] [address] [id number] [place] [address] 54582- 0599 Feb, Coronary artery disease I25.10 [facility] [address] [place] [address] 43748- 8049 Feb, Left foot pain M79.672 [facility] [address] [place] [address] 10421- 9467 Jan, UTI (urinary tract infection) 599.0 [facility] [address], [place] [address]- 9224 Jan, Urinary tract infection, site not specified 599.0 [facility] [address], [place] [address]- 9235 Jan, Urinary tract infection, site not specified 599.0 [facility] [address], [place] [address]- 7906 Jan, [facility] [address] [id number], [place] [address]- 5707 Dec, Headache 784.0 [facility] [address], [place] [address]- 8672 Dec, Urinary tract infection, site not specified 599.0 [facility] [address], [place] [address]- 6806 Dec, Urinary tract infection, site not specified 599.0 [place] [address], [place] [address]- 4144 Dec, Urinary tract infection, site not specified 599.0 [facility] [address], [place] [address]- 4211 Nov, Unspecified sleep apnea 780.57 ; Encounter for long-term ( current) use of anticoagulants V58.61 ; Routine general medical examination at health care facility V70.0 and Arthritis of both knees 716.96 [facility] [address], [place] [address]- 7762 September, Cat bite of hand 882.0 and Rectal bleeding 569.3 [facility] [address] [id number] [place] [address] 18667- 0336 Aug, [facility] [id number] [place] [address] 14066- 5846 Aug, [facility] [id number] [address]- 6517 Jul, [facility] [address], [place] [address]- 5342 Jul, [facility] [address], [place] [address]- 4154 Jul, [facility] [address], [place] [address]- 4465 Jul, [facility] [address], [place] [address]- 9010 Jul, [facility] [address], [place] [address]- 9941 Jul, [facility] [address] [address]- 4773 Jul, [facility] [address] 8846 Jul, [facility] [id number] [place] [address] [place] [address]- 3329 May, [facility] [place] [facility] [address] [id number] [place] [address]- 5005 May, [facility] [place] [facility] [address] [id number] [place] [address]- 8443 May, [facility] [place] [facility] [address] [id number] [place] [address]- 4757 May, [facility] [place] [facility] [address] [id number] [place] [address]- 7858 May, [facility] [place] [facility] [address] [id number] [place] [address]- 5505 May, [facility] [place] [facility] [address] [id number] [place] [address]- 5814 May, [facility] [place] [facility] [address] [id number] [place] [address]- 1830 Mar, [facility] [place] [facility] [address] [id number] [place] [address]- 7835 Mar, [facility] [place] [facility] [address] [id number] [place] [address]- 7261 08 Jan, 2013 [facility] [place] [facility] [address] [id number] [place] [address]- 4794 08 Jan, 2013 [facility] [place] [facility] [address] [id number] [place] [address]- 8633 08 Sep, 2013 [facility] [place] [facility] [address] [id number], [place] [address]- 3389 08 Sep, 2013 [facility] [place] [facility] [address] [id number] [place] [address]- 6137 05 Jan, 2013 [facility] [place] [facility] [address] [id number] [place] [address]- 7293 05 Jan, 2013 [facility] [place] [facility] [address] [id number], [place] [address]- 7509 18 Dec, 2013 [facility] [place] [facility] [address] [id number] [place] [address]- 7440 Dec, [facility] [place] [facility] [address] [id number] [place] [address]- 0238 Dec, [facility] [place] [facility] [address] [id number] [place] [address]- 2731 Dec, [facility] [place] [facility] [address] [id number] [place] [address]- 0461 Dec, [facility] [place] [facility] [address] [id number] [place] [address]- 2359 Dec, [facility] [place] [facility] [address] [id number] [place] [address]- 1320 Dec, [facility] [place] [facility] [address] [id number] [place] [address]- 8817 Dec, [facility] [place] [facility] [address] [id number] [place] [address]- 2264 Dec, [facility] [place] [facility] [address] [id number] [place] [address]- 4583 Dec, [facility] [place] [facility] [address] [id number] [place] [address]- 0112 Nov, [facility] [place] [facility] [address] [id number] [place] [address]- 6960 Nov, [facility] [place] [facility] [address] [id number] [place] [address]- 1809 September, [facility] [place] [facility] [address] [id number] [place] [address]- 4464 September, [facility] [place] [facility] [address] [id number] [place] [address]- 3756 September, [facility] [place] [facility] [address] [id number] [place] [address]- 4687 September, [facility] [place] [facility] [address] [id number] [place] [address]- 9278 Aug, [facility] [place] [facility] [address] [id number] [place] [address]- 2184 Aug, [facility] [place] [facility] [address] [id number] [place] [address]- 7663 Aug, [facility] [place] [facility] [address] [id number] [place] [address]- 3583 Aug, [facility] [place] [facility] [address] [id number] [place] [address]- 3748 Aug, [facility] [place] [facility] [address] [id number] [place] [address]- 2958 Aug, [facility] [place] [facility] [address] [id number] [place] [address]- 3641 Aug, [facility] [place] [facility] [address] [id number] [place] [address]- 2780 Aug, [facility] [place] [facility] [address] [id number] [place] [address]- 5252 Aug, [facility] [place] [facility] [address] [id number] [place] [address]- 9971 Aug, [facility] [place] [facility] [address] [id number] [place] [address]- 7890 Aug, [facility] [place] [facility] [address] [id number] [place] [address]- 2406 Aug, [facility] [place] [facility] [address] [id number], [place] [address]- 1692 Jul, [facility] [place] [facility] [address] [id number] [place] [address]- 0408 Jul, [facility] [place] [facility] [address] [id number] [place] [address]- 9098 Jul, [facility] [place] [facility] [address] [id number] [place] [address]- 1312 Jul, [facility] [place] [facility] [address] [id number] [place] [address]- 1307 06 Jul, 2013 [facility] [place] [facility] [address] [id number] [place] [address]- 1462 06 Jul, 2013 [facility] [place] [facility] [address] [id number] [place] [address]- 4225 Jul, [facility] [place] [facility] [address] [id number] [place] [address]- 4518 Jul, [facility] [place] [facility] [address] [id number] [place] [address]- 7904 Jul, [facility] [place] [facility] [address] [id number] [place] [address]- 6621 Jul, [facility] [place] [facility] [address] [id number] [place] [address]- 9192 Jun, [facility] [place] [facility] [address] [facility] [id number] [place] [address]- 8915 Jun, [facility] [place] [facility] [address] [facility] [id number] [place] [address]- 6719 17 Jun, 2013 [facility] [place] [facility] [address] [facility] [id number] [place] [address]- 5974 17 Jun, 2013 [facility] [place] [facility] [address] [facility] [id number] [place] [address]- 6277 13 Jun, 2013 [facility] [place] [facility] [address] [facility] [id number] [place] [address]- 4789 Jun, [facility] [place] [facility] [address] [id number] [place] [address]- 9869 Jun, [facility] [place] [facility] [address] [id number] [place] [address]- 1455 Jun, [facility] [place] [facility] [address] [facility] [id number] [place] [address]- 0402 04 Jun, 2013 [facility] [place] [facility] [address] [facility] [id number] [place] [address]- 2010 Jun, [facility] [place] [facility] [address] [id number] [place] [address]- 4654 Jun, [facility] [place] [facility] [address] [id number] [place] [address]- 3592 Jun, [facility] [place] [facility] [address] [id number] [place] [address]- 3122 May, [facility] [place] [facility] [address] [id number] [place] [address]- 6444 May, [facility] [place] [facility] [address] [id number] [place] [address]- 1499 May, [facility] [place] [facility] [address] [id number] [place] [address]- 6274 May, [facility] [place] [facility] [address] [id number] [place] [address]- 7040 May, [facility] [place] [facility] [address] [id number] [place] [address]- 3345 May, [facility] [place] [facility] [address] [id number] [place] [address]- 9626 May, [facility] [place] [facility] [address] [id number] [place] [address]- 2008 May, [facility] [place] [facility] [address] [id number], [place] [address] 2004 May, [facility] [place] [facility] [address] [id number], [place] [address] May, [facility] [place] [facility] [address] [id number], [place] [address] May, [facility] [place] [facility] [address] [id number], [place] [address] May, [facility] [place] [facility] [address] [id number] [place] [address] May, [facility] [place] [facility] [address] [id number] [place] [address] May, [facility] [address] [id number] [place] [address] May, [facility] [address] [id number] [place] [address] Apr, [facility] [address] [id number] [place] [address] Apr, [facility] [address] [id number] [place] [address] Apr, [facility] [address] [id number] [place] [address] Apr, [facility] [address] [id number] [place] [address] Mar, [facility] [address] [id number] [place] [address]- 2007 Mar, [facility] [address] [id number] [place] [address] Mar, [facility] [address] [id number] [place] [address] Mar, [facility] [address] [id number] [place] [address] Mar, [facility] [address] [id number] [place] [address] Mar, [facility] [address] [id number] [place] [address] Mar, [facility] [place] [facility] [address] [id number] [place] [address] Mar, [facility] [address] [id number] [place] [address]- [address] Mar, [facility] [address] [id number] [place] [address]- [address] Mar, [facility] [place] [facility] [address] [id number] [place] [address]- [address] 05 Mar, 2013 [facility] [place] [facility] [address] [id number] [place] [address] Mar, [facility] [place] [facility] [address] [id number] [place] [address]- [address] Feb, [facility] [place] [facility] [address] [id number] [place] [address] 18 Jan, 2013 [facility] [place] [facility] [address] [id number] [place] [address] 17 Jan, 2013 [facility] [place] [facility] [address] [id number] [place] [address]- [address] 06 Jan, 2013 [facility] [place] [facility] [address] [id number] [place] [address] Jan, [facility] [place] [facility] [address] [id number] [place] [address] Jan, [facility] [place] [facility] [address] [id number] [place] [address] Dec, [facility] [place] [facility] [address] [id number] [place] [address] Dec, [facility] [place] [facility] [address] [id number] [place] [address] Dec, [facility] [place] [facility] [address] [id number] [place] [address]- [address] Dec, [facility] [place] [facility] [address] [id number] [place] [address]- [address] Dec, [facility] [place] [facility] [address] [id number] [place] [address] Dec, [facility] [place] [facility] [address] [id number] [place] [address] Dec, [facility] [place] [facility] [address] [id number], [place] [address] Dec, [facility] [place] [facility] [address] [id number] [place] [address] Nov, [facility] [place] [facility] [address] [facility] [id number], [place] [address] Nov, [facility] [place] [facility] [address] [id number] [place] [address] Nov, [facility] [place] [facility] [address] [facility] [id number] [place] [address] Nov, [facility] [place] [facility] [address] [id number] [place] [address] Nov, [facility] [place] [facility] [address] [facility] [id number] [place] [address] Nov, [facility] [place] [facility] [address] [facility] [id number], [place] [address] Oct, [facility] [address] [id number][place] [id number] Oct, [facility] [address] [id number][place] [id number] Oct, [facility] [address] [id number][place] [id number] Oct, [facility] [address] [facility] [id number] [id number] Oct, [facility] [place] [facility] [address] [facility] [id number], [place] [address] Oct, [facility] [place] [facility] [address] [facility] [id number], [place] [address] Oct, [facility] [place] [facility] [address] [facility] [id number] [place] [address] Oct, [facility] [place] [facility] [address] [facility] [id number], [place] [address] Oct, [facility] [place] [facility] [address] [facility] [id number], [place] [address] Oct, [facility] [address] [id number] [place] [address] Oct, [facility] [place] [facility] [address] [id number] [place] [address] September, [facility] [place] [facility] [address] [id number] [place] [address] Aug, [facility] [place] [facility] [address] [id number] [place] [address] Aug, [facility] [place] [facility] [address] [id number] [place] [address] Aug, [facility] [place] [facility] [address] [id number] [place] [address] Aug, [facility] [place] [facility] [address] [id number] [place] [address] Jul, [facility] [place] [facility] [address] [id number] [place] [address]702 Jul, [facility] [place] [facility] [address] [id number] [place] [address] Jul, [facility] [place] [facility] [address] [id number] [place] [address] Jul, [facility] [place] [facility] [address] [id number], [place] [address] Jul, [facility] [place] [facility] [address] [id number], [place] [address] Jun, [facility] [place] [facility] [address] [id number] [place] [address] Jun, [facility] [place] [facility] [address] [id number] [place] [address] Jun, [facility] [place] [facility] [address] [id number] [place] [address] May, [facility] [place] [facility] [address] [id number] [place] [address] 24 May, 2012 [facility] [address] [id number] [place] [address] 14 May, 2012 [facility] [address] [id number] [place] [address] May, [facility] [address] [id number] [place] [address] May, [facility] [address] [id number] [place] [address] May, [facility] [address] [id number] [place] [address] Apr, [facility] [address] [id number] [place] [address] 18 Apr, 2012 [facility] [address] [id number] [place] [address] Apr, [facility] [address] [id number] [place] [address] Apr, [facility] [address] [id number] [place] [address] Apr, [facility] [address] [id number] [place] [address] Apr, [facility] [address] [id number] [place] [address] Apr, [facility] [address] [id number] [place] [address] Mar, [facility] [address] [id number] [place] [address] Mar, [facility] [address] [id number] [place] [address] Mar, [facility] [address] [id number] [place] [address] Mar, [facility] [address] [id number], [place] [address] Jan, [facility] [address] [id number], [place] [address] Jan, [facility] [address] [id number], [place] [address] Jan, [facility] [id number], [place] [address] Jan, [facility] [address] [id number] [id number] Dec, [facility] [id number], [place] [address] Dec, [facility] [address] [id number] [id number] Dec, [facility] [id number], [place] [address] Dec, [facility] [id number], [place] [address] Dec, [facility] [id number], [place] [address] Dec, [facility] [address] [id number], [place] [address] Nov, [facility] [id number], [place] [address] Nov, [facility] [address] [id number], [place] [address] Nov, IMMUNIZATIONS No Known Immunizations SOCIAL HISTORY Never Assessed REASON FOR VISIT Refill request PLAN OF CARE VITAL SIGNS MEDICATIONS Unknown [...]
--- OUTSIDE RECORDS SUMMARY | 2018-07-26 22:07 | XMS REPORT ---
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 Active 784268271 Problem Gastroesophageal reflux disease without esophagitis K21.9 Active 071755525 Problem Coronary artery disease I25.10 Active 96316835 Problem Renal stones N20.0 Active 14300298 Problem Hypothyroidism E03.9 Active 57660101 Problem Hyperlipidemia, unspecified hyperlipidemia type E78.5 Active 84977154 Problem Acute gout involving toe of right foot, 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 Active 721444911 Problem Intractable migraine without aura and with status migrainosus G43.011 Active 634049401 ALLERGIES No Information ENCOUNTERS Encounter Location Date Diagnosis [facility] [address] [address] Dec, [facility] [id number] [place] [address] 09934- 9983 Nov, [facility] [address] [place] [id number] [place] [address] 22735- 4405 Oct, [facility] [id number] [place] [address] 83993- 0821 Oct, [facility] [address] [address] Oct, [place] [address] [id number] [place] [address] 67871- 3750 September, [place] [id number] [place] [address] 46914- 9236 September, Type 2 diabetes mellitus with diabetic neuropathic arthropathy, 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 ; Hyperlipidemia, unspecified hyperlipidemia type E78.5 ; Personal history of pulmonary embolism Z86.711 ; Coronary artery disease I25.10 and Hypothyroidism E03.9 [place] [id number] [place] [address] 62251- 7528 September, [place] [address] 35072- 3447 Aug, Type 2 diabetes mellitus with diabetic [...] without aura and with status migrainosus G43.011 [place] [id number] [place] [address] 29592- 8763 Aug, [place] [id number] [place] [address] 03046- 2577 Aug, [place] [id number] [place] [address] 64672- 7378 Jul, Renal stones N20.0 [facility] WALK IN [facility] [id number] [place] [address] 00873 -9363 Jun, Back pain M54.9 ; Kidney stones N20.0 and BMI 50.0-59.9, adult Z68.43 [place] [id number] [place] [address] 86844- 8777 Jun, [place] [id number] [place] [address] 79402- 7082 18 Apr, 2017 [place] [id number] [place] [address] 83255- 5219 Apr, [place] [id number] [place] [address] 35102- 3994 Apr, Right foot pain M79.671 ; Acute gout involving toe of right foot, 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 and Arthritis M19.90 [place] [id number] [place] [address] 37711- 3087 06 Apr, 2017 Gastroesophageal reflux disease without esophagitis K21.9 [place] [address] 91450- 5656 Mar, Hypothyroidism, unspecified E03.[address] 25273- 4527 Feb, [place] [id number] [place] [address] 04000- 0077 25 Jan, 2017 Cervicalgia of acalcguy-cbvefss-vvjao region M54.2 and Persistent headaches R51 [place] [id number] [place] [address] 55488- 8805 20 Jan, 2017 [place] [id number] [place] [address] 75806- 7066 12 Jan, 2017 Intractable migraine without aura and with status migrainosus G43.011 ; Cervical spine pain M54.2 ; Hyperlipidemia, unspecified hyperlipidemia type E78.5 ; Hypothyroidism E03.9 and Metabolic syndrome E88.81 [place] [id number] [place] [address] 54970- 0462 Jan, Hypothyroidism, unspecified E03.9 [place] [id number] [place] [address] 97243- 3302 Dec, Hypothyroidism, unspecified E03.9 [place] [id number] [place] [address] 32123- 1305 Dec, Hypothyroidism E03.9 [place] [id number] [place] [address] 35532- 3652 Nov, Laceration of left great toe w/o foreign body w/o damage to nail, initial encounter S91.112A [facility] [place] [id number] [place] [address] 02865 -6189 Oct, Pain in left knee M25.562 and Arthritis M19.90 [place] [id number] [place] [address] 87027- 3455 Oct, Hypothyroidism, unspecified E03.9 and Hyperlipidemia, unspecified hyperlipidemia type E78.[address] 24505- 5616 Oct, Gastroesophageal reflux disease without esophagitis K21.9 [place] [address] 81229- 6542 14 Oct, 2016 Metabolic syndrome E88.81 ; Personal history of pulmonary embolism Z86.711 ; Other specified hypothyroidism E03.8 and Hyperlipidemia, unspecified hyperlipidemia type E78.[address] 90944- 1556 13 Oct, 2016 Personal history of pulmonary embolism Z86.711 ; Dysuria R30.0 ; Metabolic syndrome E88.81 ; Other specified hypothyroidism E03.8 ; Hyperlipidemia, unspecified hyperlipidemia type E78.5 and Morbid obesity with BMI of 50.0-59.9, adult Z68.43 [place] [id number] [place] [address] 98966- 0424 September, [facility] WALK IN [place] [address] 32417 -0478 September, Wrist pain, left M25.532 and Acute pain of left knee M25.562 [place] [id number] [place] [address] 91385- 7998 Jul, Dysuria R30.0 [place] [id number] [place] [address] 04172- 5467 30 Jul, 2016 Dysuria R30.[address] 53087- 0684 16 Jul, 2016 Left lower quadrant pain R10.32 [place] [address] 20869- 5945 14 Jul, 2016 [place] [address] 43123- 5633 Jul, Coronary artery disease I25.10 ; Family history of diabetes mellitus Z83.3 ; Morbid obesity with BMI of 50.0-59.9, adult Z68.43 ; Metabolic syndrome E88.81 ; Personal history of pulmonary embolism Z86.711 ; Gastroesophageal reflux disease without esophagitis K21.9 ; Hypothyroidism, unspecified E03.9 ; Hyperlipidemia, unspecified hyperlipidemia type E78.5 and Left lower quadrant pain R10.32 [facility] WALK IN [address] 22921 -7922 09 Jul, 2016 [facility] WALK IN [address] 41626 -5918 08 Jul, 2016 Morbid obesity with BMI of 50.0-59.9, adult Z68.43 [facility] [address] 62474 -6941 Jul, Generalized abdominal pain R10.84 [facility] [address] 87156 -1379 Jun, Muscle strain of right upper back, initial encounter S29.012A [facility] WALK IN [address] 02428 -2591 May, Foreign body (FB) in soft tissue M79.5 [place] [address] 85456- 5569 Mar, Hypothyroidism, unspecified E03.9 and Arthritis M19.90 [place] [id number] [place] [address] 72235- 8822 13 Feb, 2016 Coronary artery disease I25.10 ; Morbid obesity with BMI of 50.0-59.9, adult Z68.43 ; Metabolic syndrome E88.81 ; Gastroesophageal reflux disease without esophagitis K21.9 ; Hypothyroidism, unspecified E03.9 ; Personal history of pulmonary embolism Z86.711 and Hyperlipidemia, unspecified hyperlipidemia type E78.5 [place] [address] 82967- 4832 10 Feb, 2016 [facility] [place] [id number] [place] [address] 69358 -3101 12 Jan, 2016 Acute right-sided thoracic back pain M54.6 [place] [address] 49484- 8511 Jan, Acute pain of left knee M25.562 [place] [address] 71622- 8527 Dec, Dysuria R30.0 ; Metabolic syndrome E88.81 ; Acute pain of left knee M25.562 ; Acute cystitis with hematuria N30.01 and Acute left eye pain H57.12 [place] [id number] [place] [address] 43499- 7098 16 Dec, 2015 [place] [id number] [place] [address] 54554- 2648 Dec, [place] [id number] [place] [address] 33244- 3206 Dec, Hypothyroidism, unspecified E03.9 [place] [address] 12377- 6853 Dec, [place] [id number] [place] [address] 98806- 0984 Nov, Peripheral edema R60.9 and Acute pain of left knee M25.562 [facility] [place] [address] 28366 -0013 September, [place] [id number] [place] [address] 72119- 3473 September, Metabolic syndrome E88.81 and Allergy, subsequent encounter T78.40XD [facility] [place] [id number] [place] [address] 71237 -4548 September, Muscle strain T14.[address] 43741- 9147 Aug, Chest pressure R07.89 ; Metabolic syndrome E88.81 ; Morbid obesity with BMI of 50.0-59.9, adult Z68.43 ; Esophageal reflux 530.81 and Shortness of breath R06.02 [place] [id number] [place] [address] 83421- 0913 Aug, [address] 56029- 2063 Aug, [place] [address] 99330- 3668 Aug, Hypothyroidism, unspecified E03.[address] 42774- 9556 Aug, Routine health maintenance Z00.00 [facility] WALK IN [place] [id number] [place] [address] 29865 -2999 Aug, [address] 53804- 5866 Jul, Routine health maintenance Z00.00 ; Family history of diabetes mellitus Z83.3 ; Family history of cancer Z80.9 and Morbid obesity with BMI of 50.0-59.9, adult Z68.43 [facility] WALK IN [place] [id number] [place] [address] 59162 -4706 Jul, Allergic rhinitis J30.9 and Postnasal drip R09.[address] 25797- 5857 Jul, Influenza J11.1 [facility] [address] [address] -0974 Jul, Dysuria R30.0 [facility] [address] [place] [address] 83699- 0004 Apr, [facility] [id number] [place] [address] 39726- 1791 Mar, Acute upper respiratory infection, unspecified J06.9 and Hypothyroidism E03.9 [facility] [id number] [place] [address] 07575- 3456 Mar, [facility] [id number] [place] [address] 75665- 0545 Feb, Coronary artery disease I25.10 [facility] [id number] [place] [address] 94920- 4659 Feb, Left foot pain M79.672 [facility] [address] [place] [address] 69288- 3429 Jan, UTI (urinary tract infection) 599.0 [facility] [address] [place] [address] 44503- 6890 Jan, Urinary tract infection, site not specified 599.0 [facility] [address] [place] [address] 66315- 5453 Jan, Urinary tract infection, site not specified 599.0 [facility] [address] [place] [address] 24996- 7493 Jan, [facility] [id number] [place] [address] 63392- 7209 Dec, Headache 784.0 [facility] [address] [place] [address] 91091- 2789 Dec, Urinary tract infection, site not specified 599.0 [facility] [id number] [address] 9595 Dec, Urinary tract infection, site not specified 599.0 [facility] [id number] [place] [address] 406612- 2409 Dec, Urinary tract infection, site not specified 599.0 [facility] [address] 7734 Nov, Unspecified sleep apnea 780.57 ; Encounter for long-term ( current) use of anticoagulants V58.61 ; Routine general medical examination at [facility] care facility V70.0 and Arthritis of both knees 716.96 [facility] [id number] [place] [address] 63098- 0402 September, Cat bite of hand 882.0 and Rectal bleeding 569.3 [facility] [address] [address]- 0489 Aug, [facility] [id number] [place] [address] 90786- 1592 Aug, [facility] [address] [address]- 6159 Jul, [facility] [address] [place] [address] 72540- 8754 Jul, [facility] [address] [address]- 8120 Jul, [facility] [address] [address]- 6559 Jul, [facility] [address]- 0382 Jul, [facility] [address] 4428 Jul, [facility] [address] [address]- 2444 Jul, [facility] [id number] [place] [address] [place] [address]- 7112 Jul, [facility] [place] [facility] [address] [id number] [place] [address]- 9201 May, [facility] [place] [facility] [address] [id number] [place] [address]- 3454 May, [facility] [place] [facility] [address] [id number] [place] [address]- 8560 May, [facility] [place] [facility] [address] [id number] [place] [address]- 4540 May, [facility] [place] [facility] [address] [id number] [place] [address]- 3221 May, [facility] [place] [facility] [address] [id number] [place] [address]- 8361 May, [facility] [place] [facility] [address] [id number] [place] [address]- 9031 May, [facility] [place] [facility] [address] [id number] [place] [address]- 4166 Mar, [facility] [place] [facility] [address] [id number] [place] [address]- 7113 Mar, [facility] [place] [facility] [address] [id number] [place] [address]- 2837 08 Jan, 2013 [facility] [place] [facility] [address] [id number] [place] [address]- 6156 08 Sep, 2013 [facility] [place] [facility] [address] [id number] [address]- 3619 08 Sep, 2013 [facility] [place] [facility] [address] [id number] [place] [address]- 3027 08 Sep, 2013 [facility] [place] [facility] [address] [id number] [place] [address]- 5219 05 Sep, 2013 [facility] [place] [facility] [address] [id number] [address]- 3997 05 Sep, 2013 [facility] [place] [facility] [address] [id number] [place] [address]- 6403 Dec, [facility] [place] [facility] [address] [id number] [place] [address]- 5623 Dec, [facility] [place] [facility] [address] [id number] [place] [address]- 4200 Dec, [facility] [place] [facility] [address] [id number] [place] [address]- 2900 Dec, [facility] [place] [facility] [address] [id number] [place] [address]- 4364 Dec, [facility] [place] [facility] [address] [id number] [place] [address]- 1724 Dec, [facility] [place] [facility] [address] [id number] [place] [address]- 7173 Dec, [facility] [place] [facility] [address] [id number] [place] [address]- 6502 Dec, [facility] [place] [facility] [address] [id number] [place] [address]- 0280 Dec, [facility] [place] [facility] [address] [id number] [place] [address]- 7754 Dec, [facility] [place] [facility] [address] [id number] [place] [address]- 7199 Nov, [facility] [place] [facility] [address] [id number] [place] [address]- 1668 Nov, [facility] [place] [facility] [address] [id number] [place] [address]- 7878 September, [facility] [place] [facility] [address] [id number] [place] [address]- 5304 September, [facility] [place] [facility] [address] [id number] [place] [address]- 8356 September, [facility] [place] [facility] [address] [id number] [place] [address]- 5975 September, [facility] [place] [facility] [address] [id number] [place] [address]- 4542 Aug, [facility] [place] [facility] [address] [id number] [place] [address]- 0392 Aug, [facility] [place] [facility] [address] [id number] [place] [address]- 3201 Aug, [facility] [place] [facility] [address] [id number] [place] [address]- 8192 Aug, [facility] [place] [facility] [address] [id number] [place] [address]- 7281 Aug, [facility] [place] [facility] [address] [id number] [place] [address]- 5148 Aug, [facility] [place] [facility] [address] [id number] [place] [address]- 8313 Aug, [facility] [place] [facility] [address] [id number] [place] [address]- 8316 Aug, [facility] [place] [facility] [address] [id number] [place] [address]- 7859 Aug, [facility] [place] [facility] [address] [id number] [place] [address]- 4745 Aug, [facility] [place] [facility] [address] [id number] [place] [address]- 2118 Aug, [facility] [place] [facility] [address] [id number] [address]- 8786 Aug, [facility] [place] [facility] [address] [id number] [place] [address]- 4259 Jul, [facility] [place] [facility] [address] [id number] [place] [address]- 9766 Jul, [facility] [place] [facility] [address] [id number] [place] [address]- 7383 Jul, [facility] [place] [facility] [address] [id number] [place] [address]- 2823 Jul, [facility] [place] [facility] [address] [id number] [place] [address]- 1882 Jul, [facility] [place] [facility] [address] [id number] [place] 0237 Jul, [facility] [place] [facility] [address] [id number] [place] [address]- 2990 05 Jul, 2013 [facility] [place] [facility] [address] [id number] [place] [address]- 2246 05 Jul, 2013 [facility] [place] [facility] [address] [id number] [place] [address]- 9473 Jul, [facility] [place] [facility] [address] [facility] [id number] [place] [address]- 2787 Jul, [facility] [place] [facility] [address] [facility] [id number] [place] [address]- 7886 28 Jun, 2013 [facility] [place] [facility] [address] [facility] [id number] [place] [address]- 1274 28 Jun, 2013 [facility] [place] [facility] [address] [facility] [id number] [place] [address]- 2593 17 Jun, 2013 [facility] [place] [facility] [address] [facility] [id number] [place] [address]- 8818 17 Jun, 2013 [facility] [place] [facility] [address] [facility] [id number] [place] [address]- 2801 13 Jun, 2013 [facility] [place] [facility] [address] [facility] [id number] [place] [address]- 1863 13 Jun, 2013 [facility] [place] [facility] [address] [id number] [place] [address]- 6683 13 Jun, 2013 [facility] [place] [facility] [address] [facility] [id number] [place] [address]- 9672 13 Jun, 2013 [facility] [place] [facility] [address] [facility] [id number] [place] [address]- 7787 Jun, [facility] [place] [facility] [address] [id number] [place] [address]- 5532 Jun, [facility] [place] [facility] [address] [id number] [place] [address]- 7703 Jun, [facility] [place] [facility] [address] [id number] [place] [address]- 6248 Jun, [facility] [place] [facility] [address] [id number] [place] [address]- 6401 May, [facility] [place] [facility] [address] [id number] [place] [address]- 5626 May, [facility] [place] [facility] [address] [id number] [place] [address]- 5085 May, [facility] [place] [facility] [address] [id number] [place] [address]- 4150 May, [facility] [place] [facility] [address] [id number] [place] [address]- 7204 May, [facility] [place] [facility] [address] [id number] [place] [address]- 9935 May, [facility] [place] [facility] [address] [id number] [place] [address]- 8394 May, [facility] [place] [facility] [address] [id number] [place] [address]- 8746 May, [facility] [place] [facility] [address] [id number] [place] [address]- 5446 May, [facility] [place] [facility] [address] [id number] [place] [address]- 6765 May, [facility] [place] [facility] [address] [id number] [place] [address] May, [facility] [place] [facility] [address] [id number] [place] [address] May, [facility] [place] [facility] [address] [id number] [place] [address] May, [facility] [address] [id number] [place] [address] May, [facility] [address] [id number] [place] [address] May, [facility] [address] [id number] [place] [address] Apr, [facility] [address] [id number] [place] [address] Apr, [facility] [address] [id number] [place] [address] Apr, [facility] [address] [id number] [place] [address] Apr, [facility] [address] [id number] [place] [address] Mar, [facility] [address] [id number] [place] [address] Mar, [facility] [address] [id number] [place] [address] Mar, [facility] [address] [id number] [place] [address] Mar, [facility] [address] [id number] [place] [address] Mar, [facility] [address] [id number] [place] [address] Mar, [facility] [place] [facility] [address] [id number] [place] [address] Mar, [facility] [address] [id number] [place] [address] Mar, [facility] [address] [id number] [place] [address] Mar, [facility] [place] [facility] [address] [id number] [place] [address] Mar, [facility] [place] [facility] [address] [id number] [place] [address] Mar, [facility] [place] [facility] [address] [id number] [place] [address] Mar, [facility] [place] [facility] [address] [id number] [place] [address] Feb, [facility] [place] [facility] [address] [id number] [place] [address] 18 Jan, 2013 [facility] [place] [facility] [address] [id number] [place] [address] 17 Jan, 2013 [facility] [place] [facility] [address] [id number] [place] [address] 06 Jan, 2013 [facility] [place] [facility] [address] [id number] [place] [address] Jan, [facility] [place] [facility] [address] [id number] [place] [address] Jan, [facility] [place] [facility] [address] [id number] [place] [address] Dec, [facility] [place] [facility] [address] [id number] [place] [address] Dec, [facility] [place] [facility] [address] [id number] [place] [address] Dec, [facility] [place] [facility] [address] [id number] [place] [address] 16 Dec, 2012 [facility] [place] [facility] [address] [id number] [place] [address] Dec, [facility] [place] [facility] [address] [id number] [place] [address] Dec, [facility] [place] [facility] [address] [id number] [place] [address] Dec, [facility] [place] [facility] [address] [address] [id number] [place] [address] Dec, [facility] [place] [facility] [address] [id number] [place] [address] Nov, [facility] [place] [facility] [address] [id number] [place] [address] Nov, [facility] [place] [facility] [address] [id number] [place] [address] Nov, [facility] [place] [facility] [address] [id number] [place] [address] Nov, [facility] [place] [facility] [address] [facility] [id number] [place] [address] Nov, [facility] [place] [facility] [address] [facility] [id number] [place] [address] Nov, [facility] [place] [facility] [address] [facility] [id number] [place] [address] Oct, [facility] [address] [id number] [id number] Oct, [facility] [address] [facility] [id number][place] [id number] Oct, [facility] [address] [id number] [id number] Oct, [facility] [address] [facility] [id number][place] [id number] Oct, [facility] [place] [facility] [address] [id number] [place] [address] Oct, [facility] [place] [facility] [address] [facility] [id number] [place] [address] Oct, [facility] [place] [facility] [address] [id number] [place] [address] Oct, [facility] [place] [facility] [address] [facility] [id number] [place] [address] Oct, [facility] [address] [id number] [place] [address] Oct, [facility] [place] [facility] [address] [id number] [place] [address] Oct, [facility] [place] [facility] [address] [id number] [place] [address] September, [facility] [place] [facility] [address] [id number] [place] [address] Aug, [facility] [place] [facility] [address] [id number] [place] [address] Aug, [facility] [place] [facility] [address] [id number] [place] [address] Aug, [facility] [place] [facility] [address] [id number] [place] [address] Aug, [facility] [place] [facility] [address] [id number] [place] [address] Jul, [facility] [place] [facility] [address] [id number] [place] [address] Jul, [facility] [place] [facility] [address] [id number] [place] [address] Jul, [facility] [place] [facility] [address] [id number] [place] [address] Jul, [facility] [place] [facility] [address] [id number] [place] [address] Jul, [facility] [place] [facility] [address] [id number] [place] [address] Jun, [facility] [place] [facility] [address] [id number] [place] [address] Jun, [facility] [place] [facility] [address] [id number] [place] [address] Jun, [facility] [place] [facility] [address] [id number] [place] [address] 31 May, 2012 [facility] [address] [id number] [place] [address] 24 May, 2012 [facility] [address] [id number] [place] [address] 14 May, 2012 [facility] [address] [id number] [place] [address] May, [facility] [address] [id number] [place] [address] May, [facility] [address] [id number] [place] [address] May, [facility] [address] [id number] [place] [address] 18 Apr, 2012 [facility] [address] [id number] [place] [address] 18 Apr, 2012 [facility] [address] [id number] [place] [address] 13 Apr, 2012 [facility] [address] [id number] [place] [address] Apr, [facility] [address] [id number] [place] [address] 13 Apr, 2012 [facility] [address] [id number] [place] [address] Apr, [facility] [address] [id number] [place] [address] Apr, [facility] [address] [id number] [place] [address] Mar, [facility] [address] [id number] [place] [address] Mar, [facility] [address] [id number] [place] [address] Mar, [facility] [address] [id number] [place] [address] Mar, [facility] [id number] [address] Jan, [facility] [address] [id number] [place] [address] Jan, [facility] [id number] [place] [address] Jan, [facility] [id number] [place] [address] Jan, [facility] [id number] [id number] Dec, [facility] [id number] [address] Dec, [facility] [id number] [id number] Dec, [facility] [id number] [address] Dec, [facility] [id number] [place] [address] Dec, [facility] [id number] [address] Dec, [facility] [address] [id number] [place] [address] Nov, [facility] [address] [id number] [place] [address] Nov, [facility] [address] [id number] [place] [address] Nov, IMMUNIZATIONS No Known Immunizations SOCIAL HISTORY [...]
--- OUTSIDE RECORDS SUMMARY | 2018-07-26 22:07 | XMS REPORT ---
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 Active 515395207 Problem Gastroesophageal reflux disease without esophagitis K21.9 Active 035479698 Problem Coronary artery disease I25.10 Active 98407074 Problem Renal stones N20.0 Active 65587914 Problem Hypothyroidism E03.9 Active 65292098 Problem Hyperlipidemia, unspecified hyperlipidemia type E78.5 Active 64180611 Problem Acute gout involving toe of right foot, 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 Active 517708583 Problem Intractable migraine without aura and with status migrainosus G43.011 Active 322233445 ALLERGIES Substance Reaction Event Type Date Status [...] Tape Unknown Non Drug Allergy Jul, Active ENCOUNTERS Encounter Location Date Diagnosis [facility] [address] [facility] [id number] [address] Dec, [facility] [address] [facility] [id number] [place] [address] 44701- 1232 Oct, [place] [id number] [place] [address] 28185- 0303 Oct, [place] [address] [place] [id number] [place] [address] 82476- 9416 Oct, [place] [address] [place] [id number] [place] [address] 34215- 7608 September, [place] [address] [place] [id number] [place] [address] 35586- 3456 September, Type 2 diabetes mellitus with diabetic neuropathic arthropathy, 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 ; Hyperlipidemia, unspecified hyperlipidemia type E78.5 ; Personal history of pulmonary embolism Z86.711 ; Coronary artery disease I25.10 and Hypothyroidism E03.9 [place] [address] [place] [id number] [place] [address] 82305- 9888 September, [place] [address] [place] [id number] [place] [address] 16520- 6615 Aug, Type 2 diabetes mellitus with diabetic [...] without aura and with status migrainosus G43.011 [facility] [id number] [place] [address] 50387- 8139 Aug, [place] [address] [place] [id number] [place] [address] 89575- 2689 Aug, [place] [address] [place] [id number] [place] [address] 74468- 3326 Jul, Renal stones N20.0 [facility] [id number] [place] [address] 25314 -8920 Jun, Back pain M54.9 ; Kidney stones N20.0 and BMI 50.0-59.9, adult Z68.43 [place] [address] 30028- 8821 Jun, [place] [address] 61919- 8277 Apr, [place] [address] 26716- 0924 Apr, [place] [address] 96982- 8924 Apr, Right foot pain M79.671 ; Acute gout involving toe of right foot, 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 and Arthritis M19.90 [place] [address] 49704- 1326 06 Apr, 2017 Gastroesophageal reflux disease without esophagitis K21.9 [place] [address] 73076- 3110 16 Mar, 2017 Hypothyroidism, unspecified E03.9 [place] [address] 24047- 4098 11 Feb, 2017 [place] [address] 46160- 2986 25 Jan, 2017 Cervicalgia of wwqtkvyg-fjgrrzh-wenry region M54.2 and Persistent headaches R51 [place] [address] [place] [id number] [place] [address] 94593- 2500 20 Jan, 2017 [place] [address] 23117- 3397 12 Jan, 2017 Intractable migraine without aura and with status migrainosus G43.011 ; Cervical spine pain M54.2 ; Hyperlipidemia, unspecified hyperlipidemia type E78.5 ; Hypothyroidism E03.9 and Metabolic syndrome E88.81 [place] [address] 04970- 1774 Jan, Hypothyroidism, unspecified E03.9 [place] [address] [place] [id number] [place] [address] 32210- 6722 Dec, Hypothyroidism, unspecified E03.9 [place] [address] [place] [id number] [place] [address] 60197- 6232 Dec, Hypothyroidism E03.9 [place] [address] 62314- 4406 Nov, Laceration of left great toe w/o foreign body w/o damage to nail, initial encounter S91.112A [facility] [address] [place] [address] 22526 -1207 Oct, Pain in left knee M25.562 and Arthritis M19.[address] 76352- 3212 Oct, Hypothyroidism, unspecified E03.9 and Hyperlipidemia, unspecified hyperlipidemia type E78.5 [place] [address] [place] [id number] [place] [address] 87699- 2378 Oct, Gastroesophageal reflux disease without esophagitis K21.9 [place] [address] 08900- 9959 Oct, Metabolic syndrome E88.81 ; Personal history of pulmonary embolism Z86.711 ; Other specified hypothyroidism E03.8 and Hyperlipidemia, unspecified hyperlipidemia type E78.5 [place] [address] [place] [id number] [place] [address] 50024- 0219 13 Oct, 2016 Personal history of pulmonary embolism Z86.711 ; Dysuria R30.0 ; Metabolic syndrome E88.81 ; Other specified hypothyroidism E03.8 ; Hyperlipidemia, unspecified hyperlipidemia type E78.5 and Morbid obesity with BMI of 50.0-59.9, adult Z68.43 [place] [address] [place] [id number] [place] [address] 63407- 9247 September, [facility] [address] 46454 -5997 September, Wrist pain, left M25.532 and Acute pain of left knee M25.562 [place] [address] [place] [id number] [place] [address] 07372- 8906 Jul, Dysuria R30.0 [place] [address] 30452- 6854 Jul, Dysuria R30.0 [place] [address] 96525- 0544 16 Jul, 2016 Left lower quadrant pain R10.[address] 87008- 7628 Jul, [place] [address] [place] [id number] [place] [address] 21287- 9506 Jul, Coronary artery disease I25.10 ; Family history of diabetes mellitus Z83.3 ; Morbid obesity with BMI of 50.0-59.9, adult Z68.43 ; Metabolic syndrome E88.81 ; Personal history of pulmonary embolism Z86.711 ; Gastroesophageal reflux disease without esophagitis K21.9 ; Hypothyroidism, unspecified E03.9 ; Hyperlipidemia, unspecified hyperlipidemia type E78.5 and Left lower quadrant pain R10.32 [facility] [place] [id number] [place] [address] 33826 -9866 Jul, [facility] [place] [id number] [place] [address] 05336 -6946 Jul, Morbid obesity with BMI of 50.0-59.9, adult Z68.43 [facility] [place] [id number] [place] [address] 38575 -4563 Jul, Generalized abdominal pain R10.84 [facility] [place] [id number] [place] [address] 26493 -0701 Jun, Muscle strain of right upper back, initial encounter S29.012A [facility] [place] [id number] [place] [address] 68729 -1584 May, Foreign body (FB) in soft tissue M79.5 [place] [address] [place] [id number] [place] [address] 55236- 9816 Mar, Hypothyroidism, unspecified E03.9 and Arthritis M19.90 [place] [address] [place] [id number] [place] [address] 00375- 1847 13 Feb, 2016 Coronary artery disease I25.10 ; Morbid obesity with BMI of 50.0-59.9, adult Z68.43 ; Metabolic syndrome E88.81 ; Gastroesophageal reflux disease without esophagitis K21.9 ; Hypothyroidism, unspecified E03.9 ; Personal history of pulmonary embolism Z86.711 and Hyperlipidemia, unspecified hyperlipidemia type E78.5 [place] [address] [place] [id number] [place] [address] 55988- 1938 10 Feb, 2016 [facility] [address] [place] [id number] [place] [address] 41401 -0949 12 Jan, 2016 Acute right-sided thoracic back pain M54.6 [place] [address] [place] [id number] [place] [address] 34431- 6295 Jan, Acute pain of left knee M25.562 [place] [address] [place] [id number] [place] [address] 43277- 0808 18 Dec, 2015 Dysuria R30.0 ; Metabolic syndrome E88.81 ; Acute pain of left knee M25.562 ; Acute cystitis with hematuria N30.01 and Acute left eye pain H57.12 [place] [address] [place] [id number] [place] [address] 38422- 0855 Dec, [place] [address] [place] [id number] [place] [address] 16261- 5747 Dec, [place] [address] [place] [id number] [place] [address] 85344- 9802 Dec, Hypothyroidism, unspecified E03.9 [place] [address] 39746- 2865 Dec, [place] [address] [address]- 2226 Nov, Peripheral edema R60.9 and Acute pain of left knee M25.562 [facility] [place] [address] [place] [id number] [place] [address] 63138 -6684 September, [place] [address] [place] [id number] [place] [address] 05969- 7761 September, Metabolic syndrome E88.81 and Allergy, subsequent encounter T78.40XD [facility] [place] [id number] [place] [address] 46988 -6184 September, Muscle strain T14.8 [place] [address] [place] [id number] [place] [address] 39498- 1593 Aug, Chest pressure R07.89 ; Metabolic syndrome E88.81 ; Morbid obesity with BMI of 50.0-59.9, adult Z68.43 ; Esophageal reflux 530.81 and Shortness of breath R06.02 [place] [address] [place] [id number] [place] [address] 53496- 1637 Aug, [place] [address] [place] [id number] [place] [address] 51197- 8281 Aug, [place] [address] [place] [id number] [place] [address] 04184- 3949 Aug, Hypothyroidism, unspecified E03.9 [place] [id number] [place] [address] 62011- 1205 Aug, Routine health maintenance Z00.00 [facility] [place] [id number] [place] [address] 56988 -5879 Aug, [place] [address] [place] [id number] [place] [address] 32437- 9284 Jul, Routine health maintenance Z00.00 ; Family history of diabetes mellitus Z83.3 ; Family history of cancer Z80.9 and Morbid obesity with BMI of 50.0-59.9, adult Z68.43 [facility] [address] [place] [id number] [place] [address] 45753 -2270 28 Jul, 2015 Allergic rhinitis J30.9 and Postnasal drip R09.82 [facility] [address] [place] [id number] [place] [address] 38730- 4943 18 Jul, 2015 Influenza J11.1 [facility] [address] [place] [id number] [place] [address] 28919 -7196 08 Jul, 2015 Dysuria R30.0 [facility] [address] [place] [id number] [place] [address] 45460- 6753 Apr, [place] [address] 83236- 4448 24 Mar, 2015 Acute upper respiratory infection, unspecified J06.9 and Hypothyroidism E03.9 [place] [address] [place] [id number] [place] [address] 27864- 0521 Mar, [place] [address] [place] [id number] [place] [address] 55589- 3279 Feb, Coronary artery disease I25.10 [place] [address] [place] [id number] [place] [address] 51285- 8408 Feb, Left foot pain M79.672 [place] [address] [place] [id number] [place] [address] 57399- 3758 Jan, UTI (urinary tract infection) 599.0 [place] [address] [place] [id number] [place] [address] 51310- 6527 Jan, Urinary tract infection, site not specified 599.0 [place] [address] [place] [id number] [place] [address] 46579- 7782 Jan, Urinary tract infection, site not specified 599.0 [place] [address] [place] [id number] [place] [address] 81839- 6970 Jan, [place] [address] [place] [address]- 4244 Dec, Headache 784.0 [facility] [address] [place] [id number] [place] [address] 60365- 5934 Dec, Urinary tract infection, site not specified 599.0 [facility] [id number] [place] [address] 49039- 2252 Dec, Urinary tract infection, site not specified 599.0 [facility] [address] [place] [id number] [place] [address] 92322- 8126 Dec, Urinary tract infection, site not specified 599.0 [facility] [address] [place] [id number] [place] [address] 60674- 7004 Nov, Unspecified sleep apnea 780.57 ; Encounter for long-term ( current) use of anticoagulants V58.61 ; Routine general medical examination at health care facility V70.0 and Arthritis of both knees 716.96 [place] [address] [place] [id number] [place] [address] 13166- 7287 September, Cat bite of hand 882.0 and Rectal bleeding 569.3 [place] [address] [place] [id number] [place] [address] 20708- 9292 Aug, [facility] [id number] [place] [address] 89578- 7366 Aug, [facility] [address] [address]- 9881 Jul, [facility] [address] [address]- 8289 Jul, [facility] [address] [place] [id number] [place] [address] 94300- 6722 Jul, [facility] [id number] [place] [address] 05762- 7967 Jul, [facility] [id number] [place] [address] 12822- 9596 Jul, [facility] [place] [facility] [address] [id number] [place] [address]- 1414 Jul, [facility] [place] [facility] [address] [id number] [place] [address]- 3592 Jul, [facility] [place] [facility] [address] [id number] [place] [address]- 0673 Jul, [facility] [place] [facility] [address] [id number] [place] [address]- 8013 May, [facility] [place] [facility] [address] [id number] [place] [address]- 7666 May, [facility] [place] [facility] [address] [id number] [place] [address]- 5196 May, [facility] [place] [facility] [address] [id number] [place] [address]- 4121 May, [facility] [place] [facility] [address] [id number] [place] [address]- 9021 May, [facility] [place] [facility] [address] [id number] [place] [address]- 8471 May, [facility] [place] [facility] [address] [id number] [place] [address]- 9281 May, [facility] [place] [facility] [address] [id number] [place] [address]- 6254 Mar, [facility] [place] [facility] [address] [id number] [place] [address]- 1827 Mar, [facility] [place] [facility] [address] [id number] [place] [address]- 0562 Jan, [facility] [place] [facility] [address] [id number] [place] [address]- 7169 Jan, [facility] [place] [facility] [address] [id number] [place] [address]- 0542 Jan, [facility] [place] [facility] [address] [id number] [place] [address]- 9605 Jan, [facility] [place] [facility] [address] [id number] [place] [address]- 3990 Jan, [facility] [place] [facility] [address] [id number] [place] [address]- 1588 Jan, [facility] [place] [facility] [address] [id number] [place] [address]- 9321 Dec, [facility] [place] [facility] [address] [id number] [place] [address]- 4519 Dec, [facility] [place] [facility] [address] [id number] [place] [address]- 6772 Dec, [facility] [place] [facility] [address] [id number] [place] [address]- 6644 Dec, [facility] [place] [facility] [address] [id number] [place] [address]- 4227 Dec, [facility] [place] [facility] [address] [id number] [place] [address]- 2858 Dec, [facility] [place] [facility] [address] [id number] [place] [address]- 4171 Dec, [facility] [place] [facility] [address] [id number] [place] [address]- 9751 Dec, [facility] [place] [facility] [address] [id number] [place] [address]- 1495 Dec, [facility] [place] [facility] [address] [id number] [place] [address]- 9322 Dec, [facility] [place] [facility] [address] [id number] [place] [address]- 5966 Nov, [facility] [place] [facility] [address] [id number] [place] [address]- 8863 Nov, [facility] [place] [facility] [address] [id number] [place] [address]- 6306 September, [facility] [place] [facility] [address] [id number] [place] [address]- 5174 September, [facility] [address] [id number] [place] [address]- 4730 September, [facility] [place] [facility] [address] [id number] [place] [address]- 6546 September, [facility] [address] [id number] [place] [address]- 8678 Aug, [facility] [place] [facility] [address] [id number] [place] [address]- 6990 Aug, [facility] [address] [id number] [place] [address]- 8730 Aug, [facility] [address] [id number] [place] [address]- 8824 Aug, [facility] [address] [id number] [place] [address]- 2300 Aug, [facility] [address] [id number] [place] [address]- 5549 Aug, [facility] [place] [facility] [address] [id number] [place] [address]- 8673 Aug, [facility] [address] [id number] [place] [address]- 2382 Aug, [facility] [place] [facility] [address] [id number] [place] [address]- 1294 Aug, [facility] [place] [facility] [address] [id number] [place] [address]- 5480 Aug, [facility] [place] [facility] [address] [id number] [place] [address]- 2025 Aug, [facility] [place] [facility] [address] [id number] [place] [address]- 9719 Aug, [facility] [place] [facility] [address] [id number] [place] [address]- 7595 Jul, [facility] [place] [facility] [address] [id number] [place] [address]- 7923 Jul, [facility] [place] [facility] [address] [id number] [place] [address]- 8617 Jul, [facility] [place] [facility] [address] [id number] [place] [address]- 2080 Jul, [facility] [place] [facility] [address] [id number] [place] [address]- 1892 Jul, [facility] [place] [facility] [address] [id number] [place] [address]- 0929 Jul, [facility] [place] [facility] [address] [id number] [place] [address]- 3698 Jul, [facility] [place] [facility] [address] [id number] [place] [address]- 5511 Jul, [facility] [place] [facility] [address] [id number] [place] [address]- 7045 Jul, [facility] [place] [facility] [address] [id number] [place] [address]- 7215 Jul, [facility] [place] [facility] [address] [id number] [place] [address]- 9875 Jun, [facility] [place] [facility] [address] [id number] [place] [address]- 2715 Jun, [facility] [place] [facility] [address] [id number] [place] [address]- 3723 Jun, [facility] [place] [facility] [address] [id number] [place] 1688 Jun, [facility] [place] [facility] [address] [id number] [place] 8311 Jun, [facility] [place] [facility] [address] [id number] [place] [address]- 7665 Jun, [facility] [place] [facility] [address] [id number] [place] [address]- 2105 Jun, [facility] [place] [facility] [address] [id number] [place] [address]- 5666 Jun, [facility] [place] [facility] [address] [id number] [place] [address]- 7026 Jun, [facility] [place] [facility] [address] [id number] [place] [address]- 0626 Jun, [facility] [place] [facility] [address] [id number] [place] [address]- 6391 Jun, [facility] [place] [facility] [address] [id number] [place] [address]- 4394 Jun, [facility] [place] [facility] [address] [id number] [place] [address]- 4854 May, [facility] [place] [facility] [address] [id number] [place] [address]- 9239 May, [facility] [place] [facility] [address] [id number] [place] [address]- 1568 May, [facility] [place] [facility] [address] [id number] [place] [address]- 4662 May, [facility] [place] [facility] [address] [id number] [place] [address]- 7583 May, [facility] [place] [facility] [address] [id number] [place] [address]- 3880 May, [facility] [place] [facility] [address] [id number] [place] [address]- 9541 May, [facility] [place] [facility] [address] [id number] [place] [address]- 1096 May, [facility] [place] [facility] [address] [id number] [place] [address]- 2135 May, [facility] [place] [facility] [address] [id number] [place] [address]- 8135 May, [facility] [address] [id number] [place] [address] May, [facility] [place] [facility] [address] [id number] [place] [address] May, [facility] [place] [facility] [address] [facility] [id number] [place] [address] May, [facility] [place] [facility] [address] [id number] [place] [address] May, [facility] [place] [facility] [address] [id number] [place] [address] May, [facility] [place] [facility] [address] [id number] [place] [address] Apr, [facility] [place] [facility] [address] [id number] [place] [address] Apr, [facility] [place] [facility] [address] [id number], [place] [address] Apr, [facility] [place] [facility] [address] [id number] [place] [address] Apr, [facility] [place] [facility] [address] [id number], [place] [address] Mar, [facility] [place] [facility] [address] [id number], [place] [address] Mar, [facility] [place] [facility] [address] [id number], [place] [address] Mar, [facility] [place] [facility] [address] [id number], [place] [address] Mar, [facility] [place] [facility] [address] [id number], [place] [address] Mar, [facility] [place] [facility] [address] [id number], [place] [address] Mar, [facility] [place] [facility] [address] [id number] [place] [address] 07 Mar, 2012 [facility] [place] [facility] [address] [id number] [place] [address] Mar, [facility] [place] [facility] [address] [id number] [place] [address] Mar, [facility] [place] [facility] [address] [id number] [place] [address] 05 Mar, 2013 [facility] [place] [facility] [address] [id number] [place] [address] Mar, [facility] [place] [facility] [address] [id number] [place] [address] Mar, [facility] [place] [facility] [address] [id number] [place] [address] Feb, [facility] [place] [facility] [address] [id number] [place] [address] 18 Jan, 2013 [facility] [place] [facility] [address] [id number] [place] [address] 17 Jan, 2013 [facility] [place] [facility] [address] [id number] [place] [address] 06 Jan, 2013 [facility] [place] [facility] [address] [facility] [id number] [place] [address] 04 Jan, 2013 [facility] [place] [facility] [address] [id number] [place] [address] 03 Jan, 2013 [facility] [place] [facility] [address] [id number] [place] [address] 26 Dec, 2012 [facility] [place] [facility] [address] [id number] [place] [address] Dec, [facility] [place] [facility] [address] [id number] [place] [address] 18 Dec, 2012 [facility] [place] [facility] [address] [id number] [place] [address] Dec, [facility] [place] [facility] [address] [id number] [place] [address] Dec, [facility] [place] [facility] [address] [id number] [place] [address] Dec, [facility] [place] [facility] [address] [id number] [place] [address] Dec, [facility] [place] [facility] [address] [id number] [place] [address] Dec, [facility] [place] [facility] [address] [id number] [place] [address] Nov, [facility] [place] [facility] [address] [id number] [place] [address] Nov, [facility] [place] [facility] [address] [id number] [place] [address] Nov, [facility] [place] [facility] [address] [id number] [place] [address] Nov, [facility] [place] [facility] [address] [id number] [place] [address] Nov, [facility] [place] [facility] [address] [id number] [place] [address] Nov, [facility] [place] [facility] [address] [id number] [place] [address] Oct, [facility] [address] [id number] [id number] Oct, [facility] [address] [id number][place] [id number] Oct, [facility] [address] [id number] [place] [id number] Oct, [facility] [address] [id number] [place] [id number] Oct, [facility] [place] [facility] [address] [id number] [place] [address] Oct, [facility] [place] [facility] [address] [id number] [place] [address] 12 Oct, 2012 [facility] [address] [id number] [place] [address] Oct, [facility] [address] [id number] [place] [address] Oct, [facility] [address] [id number] [place] [address] Oct, [facility] [address] [id number] [place] [address] Oct, [facility] [address] [id number] [place] [address] September, [facility] [address] [id number] [place] [address] Aug, [facility] [address] [id number] [place] [address] Aug, [facility] [address] [id number] [place] [address] Aug, [facility] [address] [id number] [place] [address] Aug, [facility] [address] [id number] [place] [address] 24 Jul, 2012 [facility] [address] [id number] [place] [address] Jul, [facility] [address] [id number] [place] [address]6 Jul, [facility] [place] [facility] [address] [id number] [place] [address] 05 Jul, 2012 [facility] [address] [id number] [place] [address] Jul, [facility] [address] [id number] [place] [address] Jun, [facility] [address] [id number] [place] [address] 13 Jun, 2012 [facility] [place] [facility] [address] [id number] [place] [address] Jun, [facility] [address] [id number] [place] [address] May, [facility] [place] [facility] [address] [id number] [place] [address] 24 May, 2012 [facility] [address] [id number] [place] [address] May, [facility] [address] [id number] [place] [address] May, [facility] [address] [id number] [place] [address] May, [facility] [address] [id number] [place] [address] May, [facility] [address] [id number] [place] [address] 18 Apr, 2012 [facility] [place] [facility] [address] [id number] [place] [address] 18 Apr, 2012 [facility] [place] [facility] [address] [id number], [place] [address] 13 Apr, 2012 [facility] [place] [facility] [address] [id number], [place] [address] 13 Apr, 2012 [facility] [place] [facility] [address] [id number] [place] [address] 13 Apr, 2012 [facility] [place] [facility] [address] [id number] [place] [address] 11 Apr, 2012 [facility] [place] [facility] [address] [id number] [place] [address] 11 Apr, 2012 [facility] [place] [facility] [address] [id number] [place] [address] Mar, [facility] [place] [facility] [address] [id number] [place] [address] Mar, [facility] [place] [facility] [address] [id number] [place] [address] Mar, [facility] [place] [facility] [address] [id number] [place] [address] Mar, [facility] [place] [facility] [address] [id number] [place] [address] Jan, [facility] [place] [facility] [address] [id number] [place] [address] Jan, [facility] [place] [facility] [address] [id number] [place] [address] Jan, [facility] [place] [facility] [address] [id number] [place] [address] Jan, [facility] [address] [id number] [id number] Dec, [facility] [place] [facility] [address] [id number] [place] [address] Dec, [facility] [address] [facility] [id number][place] [id number] Dec, [facility] [place] [facility] [address] [id number], [place] [address] Dec, [facility] [place] [facility] [address] [id number], [place] [address] Dec, [facility] [place] [facility] [address] [id number] [place] [address] Dec, [facility] [place] [facility] [address] [id number] [place] [address] Nov, [facility] [place] [facility] [address] [id number] [place] [address] Nov, [facility] [place] [facility] [address] [facility] [id number] [place] [address] Nov, IMMUNIZATIONS No Known Immunizations SOCIAL HISTORY Never Assessed REASON FOR VISIT kidney stones--tjanssenMA, -has not passed any for the past 3 days, back pain. Toradol is the only thing that has helped. , -naproxen is not working to relieve any pain. PLAN OF CARE Activity Details Follow Up 3 Months, prn Reason:chm VITAL SIGNS Height 64 in 2017-07-10 Weight 317.6 lbs 2017-07-10 Temperature 97.9 degrees Fahrenheit 2017-07-10 Heart Rate 74 bpm 2017-07-10 Respiratory Rate 20 2017-07-10 BMI 54.51 kg/m2 2017-07-10 Blood pressure systolic 90 mmHg 2017-07-10 Blood pressure diastolic 62 mmHg 2017-07-10 MEDICATIONS Medication Instructions Dosage Frequency Start Date End Date Duration Status Glucometer glucometer ICD10- E11.9 fasting and 2 hours after one meal daily 3 times weekly. test blood sugar Aug, Active Albuterol Sulfate 2.5 mg /3 mL (0.083 %) 1 Each by Inhalation route every 4 hours for cough and wheezePRNfor wheezing or cough Nov, Active Tylenol Extra Strength 500 MG Nov, Active Levothyroxine Sodium 150 MCG Orally Once a day TAKE ONE TABLET BY MOUTH ONCE DAILY IN THE MORNING ON AN EMPTY STOMACH 24h 30 days Active Albuterol Sulfate 90 mcg/actuation Inhalation every 4 hrs inhale 1 puff by inhalation route every 4 hours as needed 4h Jun, 30 days Active Omeprazole 20 mg Orally Once a day 1 tablet 24h Jan, 30 days Active Topamax 100 MG Orally Twice a day 1 tablet 12h Active Methocarbamol 500 mg Orally 4 times daily as needed 1 tablet Active Warfarin Sodium 5 mg Orally 4x weekly 1 tablet Active Warfarin Sodium 7.5 MG Orally 3x weekly 1 tablet Active Flomax 0.4 MG Orally Once a day 1 capsule 24h Jun, Jul, 30 day(s) Not-Taking Test strips Test Strips ICD10- E11.9 fasting and 2 hours after one meal daily 2 times weekly. test blood sugar Aug, Active Simvastatin 20 MG Orally Once a day 1 tablet in the evening 24h Aug, 90 days Active Tramadol HCl 50 MG Orally every 6 hrs 1 tablet as needed 6h Active Colcrys 0.6 MG Orally Once a day 2 tablets now then 1 tablet in one hour 24h 15 Apr, 2017 1 dose Active RESULTS Name Result Date Reference Range UA LONG DIP (IN HOUSE) 2017-07-10 Lot # [id number] Exp date 02/2018 Clarity Clear Color Dark Yellow Odor none GLU Negative KORI Negative KET NEgative SG >=1.030 BLO 1+ pH 5.5 Protein Negative URO 0.2 NIT Negative ELIZABET 1+ Lot # Exp date CT Scan : Abd & Pelvis w/o contrast (STONE PROTOCOL) 2017-07-10 PROCEDURES Procedure Date Ordered Result Body Site URINALYSIS, AUTO, W/O SCOPE July 10, 2017 [facility] VISIT ESTABLISHED PATIENT July 10, 2017 INSTRUCTIONS MEDICATIONS ADMINISTERED No Known [...]
--- OUTSIDE RECORDS SUMMARY | 2018-07-26 22:08 | XMS REPORT ---
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 Active 264964475 Problem Gastroesophageal reflux disease without esophagitis K21.9 Active 604176338 Problem Coronary artery disease I25.10 Active 69937493 Problem Renal stones N20.0 Active 58512875 Problem Hypothyroidism E03.9 Active 10191810 Problem Hyperlipidemia, unspecified hyperlipidemia type E78.5 Active 12667770 Problem Acute gout involving toe of right foot, 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 Active 229049130 Problem Intractable migraine without aura and with status migrainosus G43.011 Active 021863759 ALLERGIES No Information ENCOUNTERS Encounter Location Date Diagnosis [place] [id number], [place] [address] September, [facility] [id number] [place] [address] September, Type 2 diabetes mellitus with diabetic neuropathic arthropathy, 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 ; Hyperlipidemia, unspecified hyperlipidemia type E78.5 ; Personal history of pulmonary embolism Z86.711 ; Coronary artery disease I25.10 and Hypothyroidism E03.9 [facility] [id number], [place] [address] September, [facility] [id number] [place] [address] 19072- 5866 Aug, Type 2 diabetes mellitus with diabetic [...] and with status migrainosus G43.011 [place] [address] [address]- 3107 Aug, [place] [address] 80747- 9020 Aug, [place] [address] 39518- 0133 Jul, Renal stones N20.0 [facility] [address] [address] Jun, Back pain M54.9 ; Kidney stones N20.0 and BMI 50.0-59.9, adult Z68.43 [place] [address] [place] [id number] [place] [address]- 5205 Jun, [place] [address] [place] [id number] [place] [address] 62825- 6867 Apr, [place] [address] 05835- 3439 Apr, [place] [address] 68184- 4825 Apr, Right foot pain M79.671 ; Acute gout involving toe of right foot, 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 and Arthritis M19.90 [facility] [address] [id number] [place] [address] 14941- 3698 Apr, Gastroesophageal reflux disease without esophagitis K21.9 [place] [address] [place] [address] [id number] [place] [address] 27710- 8104 16 Mar, 2017 Hypothyroidism, unspecified E03.9 [place] [address] 33518- 5937 11 Feb, 2017 [place] [address] 80663- 2244 25 Jan, 2017 Cervicalgia of cwlihfiy-gfpirzy-aeeag region M54.2 and Persistent headaches R51 [place] [address] [id number] [place] [address] 07218- 4732 20 Jan, 2017 [place] [address] 51186- 8301 12 Jan, 2017 Intractable migraine without aura and with status migrainosus G43.011 ; Cervical spine pain M54.2 ; Hyperlipidemia, unspecified hyperlipidemia type E78.5 ; Hypothyroidism E03.9 and Metabolic syndrome E88.81 [place] [address] 55767- 1640 Jan, Hypothyroidism, unspecified E03.9 [place] [address] 85457- 0321 Dec, Hypothyroidism, unspecified E03.9 [place] [address] 28255- 5988 Dec, Hypothyroidism E03.9 [place] [address] 62379- 3170 Nov, Laceration of left great toe w/o foreign body w/o damage to nail, initial encounter S91.112A [facility] [address] 18[address]39[address] Oct, Pain in left knee M25.562 and Arthritis M19.90 [place] [address] [place] [id number] [place] [address] 47636- 4700 Oct, Hypothyroidism, unspecified E03.9 and Hyperlipidemia, unspecified hyperlipidemia type E78.5 [place] [address] [place] [id number] [place] [address] 30282- 9887 22 Oct, 2016 Gastroesophageal reflux disease without esophagitis K21.9 [place] [address] [place] [id number] [place] [address] 61179- 8261 14 Oct, 2016 Metabolic syndrome E88.81 ; Personal history of pulmonary embolism Z86.711 ; Other specified hypothyroidism E03.8 and Hyperlipidemia, unspecified hyperlipidemia type E78.5 [place] [address] [place] [id number] [place] [address] 07545- 9936 13 Oct, 2016 Personal history of pulmonary embolism Z86.711 ; Dysuria R30.0 ; Metabolic syndrome E88.81 ; Other specified hypothyroidism E03.8 ; Hyperlipidemia, unspecified hyperlipidemia type E78.5 and Morbid obesity with BMI of 50.0-59.9, adult Z68.43 [place] [address] 30454- 1072 September, [facility] [id number] [place] [address] 41227 -5806 September, Wrist pain, left M25.532 and Acute pain of left knee M25.562 [place] [address] [place] [id number] [place] [address] 04191- 3471 Jul, Dysuria R30.0 [place] [address] [place] [address] [id number] [place] [address] 69001- 8393 Jul, Dysuria R30.0 [place] [address] [place] [address] [id number] [place] [address] 70905- 8606 Jul, Left lower quadrant pain R10.32 [place] [address] 47615- 3106 Jul, [place] [address] [place] [id number] [place] [address] 71463- 7181 Jul, Coronary artery disease I25.10 ; Family history of diabetes mellitus Z83.3 ; Morbid obesity with BMI of 50.0-59.9, adult Z68.43 ; Metabolic syndrome E88.81 ; Personal history of pulmonary embolism Z86.711 ; Gastroesophageal reflux disease without esophagitis K21.9 ; Hypothyroidism, unspecified E03.9 ; Hyperlipidemia, unspecified hyperlipidemia type E78.5 and Left lower quadrant pain R10.32 [facility] [address] 7[address] -0939 09 Jul, 2016 [facility] [address] 86277 -1187 Jul, Morbid obesity with BMI of 50.0-59.9, adult Z68.43 [facility] [address] 82796 -6812 07 Jul, 2016 Generalized abdominal pain R10.84 [facility] [address] 33173 -7089 02 Jun, 2016 Muscle strain of right upper back, initial encounter S29.012A [facility] [address] 39611 -4807 May, Foreign body (FB) in soft tissue M79.[address] 82404- 3132 Mar, Hypothyroidism, unspecified E03.9 and Arthritis M19.[address] 24149- 4230 Feb, Coronary artery disease I25.10 ; Morbid obesity with BMI of 50.0-59.9, adult Z68.43 ; Metabolic syndrome E88.81 ; Gastroesophageal reflux disease without esophagitis K21.9 ; Hypothyroidism, unspecified E03.9 ; Personal history of pulmonary embolism Z86.711 and Hyperlipidemia, unspecified hyperlipidemia type E78.[address] 34233- 4704 10 Feb, 2016 [facility] [address] 17087 -5988 Jan, Acute right-sided thoracic back pain M54.6 [place] [address] [place] [address] 40510- 1872 Jan, Acute pain of left knee M25.562 [place] [address] [place] [id number] [place] [address] 82965- 0897 Dec, Dysuria R30.0 ; Metabolic syndrome E88.81 ; Acute pain of left knee M25.562 ; Acute cystitis with hematuria N30.01 and Acute left eye pain H57.12 [place] [address] [place] [id number] [place] [address] 91047- 4754 Dec, [place] [address] [place] [id number] [place] [address] 50561- 6977 Dec, [place] [address] [place] [address] [id number] [place] [address] 16273- 6518 Dec, Hypothyroidism, unspecified E03.9 [place] [address] [place] [address] [id number] [place] [address] 03228- 4180 Dec, [place] [address] [place] [id number] [place] [address] 69146- 2891 Nov, Peripheral edema R60.9 and Acute pain of left knee M25.562 [facility] [place] [address] [place] [id number] [place] [address] 20705 -8236 September, [place] [address] [place] [id number] [place] [address] 42002- 4434 September, Metabolic syndrome E88.81 and Allergy, subsequent encounter T78.40XD [facility] [id number] [place] [address] 91366 -6362 September, Muscle strain T14.8 [place] [address] [place] [id number] [place] [address] 46791- 2228 Aug, Chest pressure R07.89 ; Metabolic syndrome E88.81 ; Morbid obesity with BMI of 50.0-59.9, adult Z68.43 ; Esophageal reflux 530.81 and Shortness of breath R06.02 [place] [address] [place] [id number] [place] [address] 54020- 0175 Aug, [place] [address] 42297- 7938 Aug, [place] [address] 33960- 4097 Aug, Hypothyroidism, unspecified E03.9 [place] [address] 18889- 7985 Aug, Routine health maintenance Z00.00 [facility] [place] [address] 05131 -1550 Aug, [place] [address] 04539- 5193 31 Jul, 2015 Routine health maintenance Z00.00 ; Family history of diabetes mellitus Z83.3 ; Family history of cancer Z80.9 and Morbid obesity with BMI of 50.0-59.9, adult Z68.43 [facility] [place] [address] 47784 -9471 28 Jul, 2016 Allergic rhinitis J30.9 and Postnasal drip R09.[address] 76695- 7665 18 Jul, 2016 Influenza J11.1 [facility] [place] [address] [place] [id number] [place] [address] 97975 -0264 08 Jul, 2015 Dysuria R30.0 [place] [address] [place] [id number] [place] [address] 37964- 6105 Apr, [place] [address] 41272- 7760 Mar, Acute upper respiratory infection, unspecified J06.9 and Hypothyroidism E03.9 [place] [address] 71181- 9876 Mar, [facility] [id number], [place] [address]- 6867 Feb, Coronary artery disease I25.10 [facility] [id number], [place] [address]- 6186 Feb, Left foot pain M79.672 [facility] [address], [place] [address]- 1844 Jan, UTI (urinary tract infection) 599.0 [place] [address] [id number] [address]- 9327 Jan, Urinary tract infection, site not specified 599.0 [place] [address], [place] [address]- 0120 Jan, Urinary tract infection, site not specified 599.0 [place] [address], [place] [address]- 9573 Jan, [facility] [id number], [place] [address]- 8079 Dec, Headache 784.0 [facility] [address], [place] [address]- 9660 Dec, Urinary tract infection, site not specified 599.0 [place] [address] [id number], [place] [address]- 4313 Dec, Urinary tract infection, site not specified 599.0 [facility] [id number], [place] [address]- 8078 Dec, Urinary tract infection, site not specified 599.0 [place] [id number] [address]- 3459 Nov, Unspecified sleep apnea 780.57 ; Encounter for long-term ( current) use of anticoagulants V58.61 ; Routine general medical examination at health care facility V70.0 and Arthritis of both knees 716.96 [place] [address], [place] [address]- 7075 September, Cat bite of hand 882.0 and Rectal bleeding 569.3 [facility] [address] [place] [address]- 9406 Aug, [facility] [id number] [place] [address]- 7383 Aug, [facility] [address] [facility] [id number] [place] [address]- 3270 Jul, [facility] [address] [facility] [id number] [place] [address]- 7010 Jul, [facility] [id number] [place] [address]- 7649 Jul, [facility] [address] [place] [address]- 1928 Jul, [facility] [address], [place] [address]- 2712 Jul, [facility] [id number] [place] [address]- 6300 Jul, [facility] [address], [place] [address]- 7845 Jul, [facility] [id number] 9716 Jul, [facility] [id number], [place] [address]- 8136 May, [facility] [address] [facility] [id number] [place] [address]- 8478 May, [facility] [address] [facility] [id number] [address]- 9486 May, [facility] [id number], [place] [address]- 1286 May, [facility] [id number] [place] [address]- 4481 May, [facility] [place] [facility] [address] [id number] [place] [address]- 9034 16 May, 2014 [facility] [place] [facility] [address] [id number] [place] [address]- 0754 15 May, 2014 [facility] [place] [facility] [address] [id number] [place] [address]- 5863 Mar, [facility] [place] [facility] [address] [id number] [place] [address]- 9812 Mar, [facility] [place] [facility] [address] [id number] [place] [address]- 2271 08 Jan, 2013 [facility] [place] [facility] [address] [id number] [place] [address]- 0537 08 Jan, 2013 [facility] [place] [facility] [address] [id number] [place] [address]- 3791 08 Jan, 2013 [facility] [place] [facility] [address] [id number] [place] [address]- 7351 08 Jan, 2013 [facility] [place] [facility] [address] [id number] [place] [address]- 2650 05 Jan, 2013 [facility] [place] [facility] [address] [id number] [place] [address]- 9600 05 Jan, 2013 [facility] [place] [facility] [address] [id number] [place] [address]- 4959 Dec, [facility] [place] [facility] [address] [id number] [place] [address]- 9427 Dec, [facility] [place] [facility] [address] [id number] [place] [address]- 3318 Dec, [facility] [place] [facility] [address] [id number] [place] [address]- 7353 Dec, [facility] [place] [facility] [address] [id number] [place] [address]- 8047 Dec, [facility] [place] [facility] [address] [id number] [place] [address]- 2269 Dec, [facility] [place] [facility] [address] [id number] [place] [address]- 7992 Dec, [facility] [place] [facility] [address] [id number] [place] [address]- 0004 Dec, [facility] [place] [facility] [address] [id number] [place] [address]- 1442 Dec, [facility] [place] [facility] [address] [id number] [place] [address]- 1000 Dec, [facility] [place] [facility] [address] [id number] [place] [address]- 7124 Nov, [facility] [place] [facility] [address] [id number] [place] [address]- 9238 Nov, [facility] [place] [facility] [address] [id number] [place] [address]- 0745 September, [facility] [place] [facility] [address] [id number] [place] [address]- 5628 September, [facility] [place] [facility] [address] [id number] [place] [address]- 5288 September, [facility] [place] [facility] [address] [id number] [place] [address]- 9761 September, [facility] [place] [facility] [address] [id number] [place] [address]- 2206 Aug, [facility] [place] [facility] [address] [id number] [place] [address]- 4986 Aug, [facility] [place] [facility] [address] [id number] [place] [address]- 7851 Aug, [facility] [place] [facility] [address] [id number] [place] [address]- 0570 Aug, [facility] [place] [facility] [address] [id number] [place] [address]- 7242 Aug, [facility] [place] [facility] [address] [id number] [place] [address]- 8799 Aug, [facility] [place] [facility] [address] [id number] [place] [address]- 4746 Aug, [facility] [place] [facility] [address] [id number] [place] [address]- 0006 Aug, [facility] [place] [facility] [address] [id number] [place] [address]- 6762 Aug, [facility] [place] [facility] [address] [id number] [place] [address]- 4516 Aug, [facility] [place] [facility] [address] [id number] [place] [address]- 3024 Aug, [facility] [place] [facility] [address] [id number] [place] [address]- 7198 Aug, [facility] [place] [facility] [address] [id number] [place] [address]- 1280 Jul, [facility] [place] [facility] [address] [id number] [place] [address]- 8157 Jul, [facility] [place] [facility] [address] [id number] [place] [address]- 3968 Jul, [facility] [place] [facility] [address] [id number], [place] [address]- 1287 Jul, [facility] [place] [facility] [address] [id number], [place] [address]- 5404 Jul, [facility] [place] [facility] [address] [id number] [place] [address]- 3897 Jul, [facility] [place] [facility] [address] [id number] [place] [address]- 3724 Jul, [facility] [place] [facility] [address] [id number] [place] [address]- 5706 Jul, [facility] [place] [facility] [address] [id number] [place] [address]- 1893 Jul, [facility] [place] [facility] [address] [id number] [place] [address]- 7904 Jul, [facility] [place] [facility] [address] [id number] [place] [address]- 8797 Jun, [facility] [place] [facility] [address] [id number] [place] [address]- 1903 Jun, [facility] [place] [facility] [address] [id number] [place] [address]- 4699 Jun, [facility] [place] [facility] [address] [id number] [place] [address]- 0767 Jun, [facility] [place] [facility] [address] [facility] [id number] [place] [address]- 2407 Jun, [facility] [place] [facility] [address] [id number] [place] [address]- 2652 Jun, [facility] [place] [facility] [address] [id number] [place] [address]- 5783 Jun, [facility] [place] [facility] [address] [facility] [id number] [place] [address]- 1625 Jun, [facility] [place] [facility] [address] [facility] [id number] [place] [address]- 6294 Jun, [facility] [place] [facility] [address] [facility] [id number] [place] [address]- 6708 Jun, [facility] [place] [facility] [address] [id number] [place] [address]- 4324 Jun, [facility] [place] [facility] [address] [id number] [place] [address]- 1493 Jun, [facility] [place] [facility] [address] [id number] [place] [address]- 2377 May, [facility] [place] [facility] [address] [facility] [id number], [place] [address]- 0459 May, [facility] [place] [facility] [address] [id number] [place] [address]- 1108 May, [facility] [place] [facility] [address] [id number] [place] [address]- 2113 May, [facility] [place] [facility] [address] [id number] [place] [address]- 4913 May, [facility] [place] [facility] [address] [id number] [place] [address]- 3324 May, [facility] [place] [facility] [address] [id number] [place] [address]- 8836 May, [facility] [place] [facility] [address] [id number] [place] [address]- 6381 May, [facility] [place] [facility] [address] [id number] [place] [address]- 2889 May, [facility] [place] [facility] [address] [id number] [place] [address]- 3057 May, [facility] [place] [facility] [address] [id number] [place] [address]- 7772 May, [facility] [place] [facility] [address] [id number] [place] [address]- 5164 May, [facility] [place] [facility] [address] [id number], [place] [address]- 8900 May, [facility] [place] [facility] [address] [id number], [place] [address]- 2932 May, [facility] [place] [facility] [address] [id number], [place] [address]- 5362 May, [facility] [place] [facility] [address] [id number], [place] [address]- 2791 Apr, [facility] [place] [facility] [address] [id number] [place] [address]- 9009 Apr, [facility] [place] [facility] [address] [id number] [place] [address]- 0663 Apr, [facility] [address] [id number] [place] [address] Apr, [facility] [place] [facility] [address] [id number] [place] [address] Mar, [facility] [address] [id number] [place] [address] Mar, [facility] [address] [id number] [place] [address] Mar, [facility] [address] [id number] [place] [address] Mar, [facility] [address] [id number] [place] [address] Mar, [facility] [address] [id number] [place] [address] Mar, [facility] [address] [id number] [place] [address] Mar, [facility] [address] [id number] [place] [address] Mar, [facility] [address] [facility] [id number] [place] [address] Mar, [facility] [place] [facility] [address] [id number] [place] [address] Mar, [facility] [place] [facility] [address] [id number] [place] [address] Mar, [facility] [place] [facility] [address] [id number] [place] [address] Mar, [facility] [place] [facility] [address] [id number] [place] [address] Feb, [facility] [place] [facility] [address] [id number] [place] [address] 18 Jan, 2013 [facility] [place] [facility] [address] [id number] [place] [address] 17 Jan, 2012 [facility] [place] [facility] [address] [id number] [place] [address] 06 Jan, 2013 [facility] [place] [facility] [address] [id number] [place] [address]- [address] 04 Jan, 2013 [facility] [place] [facility] [address] [id number] [place] [address]- [address] 03 Jan, 2013 [facility] [place] [facility] [address] [id number] [place] [address] Dec, [facility] [place] [facility] [address] [id number] [place] [address] Dec, [facility] [place] [facility] [address] [id number] [place] [address] Dec, [facility] [place] [facility] [address] [id number] [place] [address] Dec, [facility] [place] [facility] [address] [id number] [place] [address] Dec, [facility] [place] [facility] [address] [id number] [place] [address] Dec, [facility] [place] [facility] [address] [id number] [place] [address] Dec, [facility] [place] [facility] [address] [id number] [place] [address] Dec, [facility] [place] [facility] [address] [id number] [place] [address] Nov, [facility] [place] [facility] [address] [id number] [place] [address] Nov, [facility] [place] [facility] [address] [id number] [place] [address] 2010 Nov, [facility] [place] [facility] [address] [id number], [place] [address] Nov, [facility] [place] [facility] [address] [id number], [place] [address] Nov, [facility] [place] [facility] [address] [facility] [id number], [place] [address] Nov, [facility] [place] [facility] [address] [id number][place] [address] Oct, [facility] [address] [id number] [place] [id number] Oct, [facility] [address] [id number] [place] [id number] Oct, [facility] [address] [id number] [place] [id number] Oct, [facility] [address] [id number] [place] [id number] Oct, [facility] [place] [facility] [address] [facility] [id number], [place] [address] Oct, [facility] [place] [facility] [address] [facility] [id number], [place] [address] Oct, [facility] [place] [facility] [address] [facility] [id number], [place] [address] Oct, [facility] [place] [facility] [address] [id number], [place] [address] Oct, [facility] [place] [facility] [address] [facility] [id number], [place] [address] Oct, [facility] [place] [facility] [address] [facility] [id number], [place] [address] Oct, [facility] [place] [facility] [address] [facility] [id number], [place] [address] September, [facility] [place] [facility] [address] [facility] [id number], [place] [address] Aug, [facility] [place] [facility] [address] [facility] [id number], [place] [address] Aug, [facility] [address] [id number] [place] [address] Aug, [facility] [place] [facility] [address] [id number] [place] [address] Aug, [facility] [place] [facility] [address] [id number] [place] [address] Jul, [facility] [place] [facility] [address] [id number] [place] [address] Jul, [facility] [address] [id number] [place] [address] Jul, [facility] [place] [facility] [address] [id number] [place] [address] Jul, [facility] [address] [id number] [place] [address] Jul, [facility] [place] [facility] [address] [id number] [place] [address] Jun, [facility] [place] [facility] [address] [id number] [place] [address] Jun, [facility] [place] [facility] [address] [id number] [place] [address] Jun, [facility] [place] [facility] [address] [id number], [place] [address] May, [facility] [place] [facility] [address] [id number] [place] [address] 24 May, 2012 [facility] [place] [facility] [address] [id number] [place] [address] May, [facility] [place] [facility] [address] [id number] [place] [address] May, [facility] [place] [facility] [address] [id number] [place] [address] May, [facility] [place] [facility] [address] [id number] [place] [address] 04 May, 2012 [facility] [address] [id number] [place] [address] 18 Apr, 2012 [facility] [address] [id number] [place] [address] 18 Apr, 2012 [facility] [address] [id number] [place] [address] 13 Apr, 2012 [facility] [address] [id number] [place] [address] 13 Apr, 2012 [facility] [address] [id number] [place] [address] 13 Apr, 2012 [facility] [address] [id number] [place] [address] 11 Apr, 2012 [facility] [address] [id number] [place] [address] Apr, [facility] [address] [id number] [place] [address] Mar, [facility] [address] [id number] [place] [address] Mar, [facility] [address] [id number] [place] [address] Mar, [facility] [address] [id number] [place] [address] Mar, [facility] [address] [id number] [place] [address] 18 Jan, 2012 [facility] [place] [facility] [address] [id number] [place] [address] 10 Jan, 2012 [facility] [place] [facility] [address] [id number] [place] [address] 06 Jan, 2012 [facility] [address] [id number] [place] [address] Jan, [facility] [address] [facility] [id number] [id number] Dec, [facility] [id number], [place] [address] Dec, [facility] [address] [id number] [id number] Dec, [facility] [id number], [place] [address] Dec, [facility] [id number], [place] [address] Dec, [facility] [id number], [place] [address] Dec, [facility] [id number], [place] [address] Nov, [facility] [id number], [place] [address] Nov, [facility] [address] [id number], [place] [address] Nov, IMMUNIZATIONS No Known Immunizations SOCIAL HISTORY Never Assessed REASON FOR VISIT FY only PLAN OF CARE VITAL SIGNS MEDICATIONS Unknown [...]
--- OUTSIDE RECORDS SUMMARY | 2018-07-26 22:10 | XMS REPORT ---
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 Active 043585604 Problem Gastroesophageal reflux disease without esophagitis K21.9 Active 611883551 Problem Coronary artery disease I25.10 Active 10279802 Problem Renal stones N20.0 Active 74818398 Problem Hypothyroidism E03.9 Active 65833784 Problem Hyperlipidemia, unspecified hyperlipidemia type E78.5 Active 22781576 Problem Acute gout involving toe of right foot, 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 Active 771388573 Problem Intractable migraine without aura and with status migrainosus G43.011 Active 190716238 ALLERGIES Substance Reaction Event Type Date Status Phenergan hallucinations Drug Allergy Apr, Active Nexium anaphylaxis Drug Allergy Apr, Active Methylprednisolone nausea and vomiting Drug Allergy Apr, Active Levothyroxine Sodium rash Drug Allergy Apr, Active Honey Bee Venom Unknown Drug Allergy Apr, Active Dexamethasone nausea and vomiting Drug Allergy Apr, Active Azithromycin hives Drug Allergy Apr, Active Amoxicillin hives Drug Allergy Apr, Active Adhesive Unknown Non Drug Allergy Apr, Active Tape Unknown Non Drug Allergy Apr, Active ENCOUNTERS Encounter Location Date Diagnosis [facility] [address] [facility] [id number] [address] Nov, [facility] [address] [facility] [id number] [place] [address] 86129- 1337 Nov, [place] [address], [place] [address] Oct, [place] [address] [place] [address] 25836955- 6577 Oct, [place] [address] [place] [id number] [place] [address] 02055- 2091 Oct, [place] [address] [place] [id number] [place] [address] 12891- 0436 September, [place] [address] [place] [id number] [place] [address] 60145- 9443 September, Type 2 diabetes mellitus with diabetic neuropathic arthropathy, 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 ; Hyperlipidemia, unspecified hyperlipidemia type E78.5 ; Personal history of pulmonary embolism Z86.711 ; Coronary artery disease I25.10 and Hypothyroidism E03.9 [place] [address] [place] [id number] [place] [address] 01215- 4808 September, [place] [address] [place] [address] 89202- 0430 Aug, Type 2 diabetes mellitus with diabetic [...] without aura and with status migrainosus G43.011 [place] [address] [place] [id number] [place] [address] 50283- 5065 Aug, [place] [address] [place] [id number] [place] [address] 89305- 4245 Aug, [place] [address] [place] [id number] [place] [address] 65495- 8410 Jul, Renal stones N20.0 [facility] [address] [place] [id number] [place] [address] 93061 -4471 Jun, Back pain M54.9 ; Kidney stones N20.0 and BMI 50.0-59.9, adult Z68.43 [facility] [address] [place] [id number] [place] [address] 12488- 2191 Jun, [facility] [address] 30556- 1556 Apr, [place] [address] 10553- 1833 Apr, [place] [address] 20520- 7131 Apr, Right foot pain M79.671 ; Acute gout involving toe of right foot, 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 and Arthritis M19.90 [place] [address] 22773- 2623 Apr, Gastroesophageal reflux disease without esophagitis K21.9 [place] [address] 64878- 7565 Mar, Hypothyroidism, unspecified E03.9 [facility] [address] 20682- 6912 Feb, [place] [address] 00503- 3556 25 Jan, 2017 Cervicalgia of okwavvwg-sjihujf-xuqty region M54.2 and Persistent headaches R51 [place] [address] [place] [id number] [place] [address] 35211- 6387 Jan, [place] [address] 83550- 9993 12 Jan, 2017 Intractable migraine without aura and with status migrainosus G43.011 ; Cervical spine pain M54.2 ; Hyperlipidemia, unspecified hyperlipidemia type E78.5 ; Hypothyroidism E03.9 and Metabolic syndrome E88.81 [place] [address] 53511- 5256 Jan, Hypothyroidism, unspecified E03.9 [place] [address] 66134- 3686 Dec, Hypothyroidism, unspecified E03.[address] 13542- 2454 Dec, Hypothyroidism E03.[address] 72479- 0254 Nov, Laceration of left great toe w/o foreign body w/o damage to nail, initial encounter S91.112A [facility] [address] [address] -[address] Oct, Pain in left knee M25.562 and Arthritis M19.[address] 62112- 2949 Oct, Hypothyroidism, unspecified E03.9 and Hyperlipidemia, unspecified hyperlipidemia type E78.[address] 62620- 2681 Oct, Gastroesophageal reflux disease without esophagitis K21.[address] 03044- 5062 14 Oct, 2016 Metabolic syndrome E88.81 ; Personal history of pulmonary embolism Z86.711 ; Other specified hypothyroidism E03.8 and Hyperlipidemia, unspecified hyperlipidemia type E78.5 [place] [id number] [place] [address] 97356- 2192 13 Oct, 2016 Personal history of pulmonary embolism Z86.711 ; Dysuria R30.0 ; Metabolic syndrome E88.81 ; Other specified hypothyroidism E03.8 ; Hyperlipidemia, unspecified hyperlipidemia type E78.5 and Morbid obesity with BMI of 50.0-59.9, adult Z68.[address] 12500- 0348 September, [facility] [place] [address] [place] [address] 10437 -2812 September, Wrist pain, left M25.532 and Acute pain of left knee M25.562 [place] [address], [place] [address] 8624 Jul, Dysuria R30.0 [place] [address] [place] [id number] [place] [address] 384137- 6241 Jul, Dysuria R30.0 [place] [address] [place] [id number] [place] [address] 10678- 7300 Jul, Left lower quadrant pain R10.32 [place] [address] [place] [id number] [place] [address] 71350- 1893 Jul, [place] [address] [place] [id number] [place] [address] 31585- 2592 Jul, Coronary artery disease I25.10 ; Family history of diabetes mellitus Z83.3 ; Morbid obesity with BMI of 50.0-59.9, adult Z68.43 ; Metabolic syndrome E88.81 ; Personal history of pulmonary embolism Z86.711 ; Gastroesophageal reflux disease without esophagitis K21.9 ; Hypothyroidism, unspecified E03.9 ; Hyperlipidemia, unspecified hyperlipidemia type E78.5 and Left lower quadrant pain R10.[address] [facility] [address], [place] [address] Jul, [facility] [address] [place] [address] 10522 -9316 08 Jul, 2016 Morbid obesity with BMI of 50.0-59.9, adult Z68.[address] [facility] [address], [place] [address] Jul, Generalized abdominal pain R10.[address] [facility] [address], [place] [address] Jun, Muscle strain of right upper back, initial encounter S29.012A [facility] [address] [place] [id number] [place] [address] 53810 -4845 May, Foreign body (FB) in soft tissue M79.5 [place] [address] 52269- 5622 Mar, Hypothyroidism, unspecified E03.9 and Arthritis M19.90 [place] [address] 54885- 4219 13 Feb, 2016 Coronary artery disease I25.10 ; Morbid obesity with BMI of 50.0-59.9, adult Z68.43 ; Metabolic syndrome E88.81 ; Gastroesophageal reflux disease without esophagitis K21.9 ; Hypothyroidism, unspecified E03.9 ; Personal history of pulmonary embolism Z86.711 and Hyperlipidemia, unspecified hyperlipidemia type E78.5 [place] [address] 85819- 7850 Feb, [facility] [place] [address] 06739 -0240 Jan, Acute right-sided thoracic back pain M54.[address] 97035- 1314 Jan, Acute pain of left knee M25.562 [place] [address] [place] [id number] [place] [address] 00811- 1587 Dec, Dysuria R30.0 ; Metabolic syndrome E88.81 ; Acute pain of left knee M25.562 ; Acute cystitis with hematuria N30.01 and Acute left eye pain H57.12 [place] [address] 62282- 3447 Dec, [place] [address] 67414- 8969 Dec, [place] [address] 87085- 8882 Dec, Hypothyroidism, unspecified E03.9 [facility] [address] [place] [address] 34352- 8281 Dec, [place] [address] [place] [id number] [place] [address] 54930- 8981 Nov, Peripheral edema R60.9 and Acute pain of left knee M25.562 [facility] [place] [address] [place] [id number] [place] [address] 47515 -3735 September, [place] [address] [place] [id number] [place] [address] 37126- 3803 September, Metabolic syndrome E88.81 and Allergy, subsequent encounter T78.40XD [facility] [place] [address] [place] [id number] [place] [address] 60961 -3138 September, Muscle strain T14.8 [place] [address] [place] [id number] [place] [address] 34321- 7019 Aug, Chest pressure R07.89 ; Metabolic syndrome E88.81 ; Morbid obesity with BMI of 50.0-59.9, adult Z68.43 ; Esophageal reflux 530.81 and Shortness of breath R06.02 [place] [address] [place] [id number] [place] [address] 31726- 4155 Aug, [place] [address] [place] [id number] [place] [address] 01403- 4856 Aug, [place] [address] [place] [id number] [place] [address] 40868- 0220 Aug, Hypothyroidism, unspecified E03.9 [place] [address] [place] [id number] [place] [address] 10261- 6833 Aug, Routine health maintenance Z00.00 [facility] [place] [address] [place] [id number] [place] [address] 45008 -9320 Aug, [place] [address] [place] [id number] [place] [address] 41140- 7370 31 Mar, 2016 Routine health maintenance Z00.00 ; Family history of diabetes mellitus Z83.3 ; Family history of cancer Z80.9 and Morbid obesity with BMI of 50.0-59.9, adult Z68.43 [facility] [address] [place] [id number] [place] [address] 76641 -3270 28 Jul, 2016 Allergic rhinitis J30.9 and Postnasal drip R09.82 [place] [address] 88662- 6435 18 Jul, 2015 Influenza J11.1 [facility] [address] 08207 -4995 08 Jul, 2015 Dysuria R30.0 [place] [address] 71647- 1348 Apr, [place] [address] 40757- 6454 Mar, Acute upper respiratory infection, unspecified J06.9 and Hypothyroidism E03.9 [place] [address] [place] [id number] [place] [address] 75959- 5312 Mar, [place] [address] 25748- 5669 Feb, Coronary artery disease I25.10 [place] [address] [place] [id number] [place] [address] 97646- 1100 Feb, Left foot pain M79.672 [place] [address] [place] [id number] [place] [address] 55653- 3693 Jan, UTI (urinary tract infection) 599.0 [place] [address] 63385- 4703 Jan, Urinary tract infection, site not specified 599.0 [place] [address] [place] [id number] [place] [address] 46508- 8797 Jan, Urinary tract infection, site not specified 599.0 [place] [address] [place] [address]- 3410 Jan, [facility] [address], [place] [address]- 8804 Dec, Headache 784.0 [facility] [address] [place] [id number] [place] [address] 68285- 6977 Dec, Urinary tract infection, site not specified 599.0 [facility] [address] [place] [id number] [place] [address] 14392- 5845 Dec, Urinary tract infection, site not specified 599.0 [facility] [address], [place] [address]- 1289 Dec, Urinary tract infection, site not specified 599.0 [facility] [address], [place] [address]- 3099 Nov, Unspecified sleep apnea 780.57 ; Encounter for long-term ( current) use of anticoagulants V58.61 ; Routine general medical examination at health care facility V70.0 and Arthritis of both knees 716.96 [facility] [address], [place] [address]- 8711 September, Cat bite of hand 882.0 and Rectal bleeding 569.3 [facility] [address], [place] [address]- 9286 Aug, [facility] [address], [place] [address]- 5389 Aug, [facility] [address], [place] [address]- 0993 Jul, [facility] [address], [place] [address]- 6990 Jul, [facility] [address], [place] [address]- 3217 Jul, [facility] [address], [place] [address]- 4662 Jul, [facility] [place] [facility] [address] [id number] [place] [address]- 0873 Jul, [facility] [place] [facility] [address] [id number] [place] [address]- 0895 Jul, [facility] [place] [facility] [address] [id number] [place] [address]- 0004 Jul, [facility] [place] [facility] [address] [id number] [place] [address]- 5881 Jul, [facility] [place] [facility] [address] [id number] [place] [address]- 5002 May, [facility] [place] [facility] [address] [id number] [place] [address]- 0699 May, [facility] [place] [facility] [address] [id number] [place] [address]- 2076 May, [facility] [place] [facility] [address] [id number] [place] [address]- 8067 May, [facility] [place] [facility] [address] [id number] [place] [address]- 7035 May, [facility] [place] [facility] [address] [id number] [place] [address]- 2938 May, [facility] [place] [facility] [address] [id number] [place] [address]- 0836 May, [facility] [place] [facility] [address] [id number] [place] [address]- 7635 Mar, [facility] [place] [facility] [address] [id number] [place] [address]- 2948 Mar, [facility] [place] [facility] [address] [id number] [place] [address]- 6562 Jan, [facility] [place] [facility] [address] [id number] [place] [address]- 5266 Jan, [facility] [place] [facility] [address] [id number] [place] [address]- 2973 Jan, [facility] [place] [facility] [address] [id number] [place] [address]- 1055 Jan, [facility] [place] [facility] [address] [id number] [place] [address]- 8056 Jan, [facility] [place] [facility] [address] [id number] [place] [address]- 4004 Jan, [facility] [place] [facility] [address] [id number] [place] [address]- 4932 Dec, [facility] [place] [facility] [address] [id number] [place] [address]- 8566 Dec, [facility] [place] [facility] [address] [id number] [place] [address]- 1716 Dec, [facility] [place] [facility] [address] [id number] [place] [address]- 6038 Dec, [facility] [place] [facility] [address] [id number] [place] [address]- 1234 Dec, [facility] [place] [facility] [address] [id number] [place] [address]- 4070 Dec, [facility] [place] [facility] [address] [id number] [place] [address]- 6106 Dec, [facility] [place] [facility] [address] [id number] [place] [address]- 8551 Dec, [facility] [place] [facility] [address] [id number] [place] [address]- 5699 Dec, [facility] [place] [facility] [address] [id number] [place] [address]- 8042 Dec, [facility] [place] [facility] [address] [id number] [place] [address]- 0155 Nov, [facility] [place] [facility] [address] [id number] [place] [address]- 3451 Nov, [facility] [place] [facility] [address] [id number] [place] [address]- 0838 September, [facility] [address] [id number] [place] [address]- 6760 September, [facility] [place] [facility] [address] [id number] [place] [address]- 2029 September, [facility] [address] [id number] [place] [address]- 9529 September, [facility] [place] [facility] [address] [id number] [place] [address]- 1718 Aug, [facility] [address] [id number] [place] [address]- 0513 Aug, [facility] [address] [id number] [place] [address]- 6447 Aug, [facility] [place] [facility] [address] [id number] [place] [address]- 9544 Aug, [facility] [address] [id number] [place] [address]- 4037 Aug, [facility] [place] [facility] [address] [id number] [place] [address]- 1974 Aug, [facility] [address] [id number] [place] [address]- 5432 Aug, [facility] [place] [facility] [address] [id number] [place] [address]- 1924 Aug, [facility] [place] [facility] [address] [id number] [place] [address]- 7102 Aug, [facility] [place] [facility] [address] [id number] [place] [address]- 8274 Aug, [facility] [place] [facility] [address] [id number] [place] [address]- 5620 Aug, [facility] [place] [facility] [address] [id number] [place] [address]- 3763 Aug, [facility] [place] [facility] [address] [id number] [place] [address]- 2574 Jul, [facility] [place] [facility] [address] [id number] [place] [address]- 4922 Jul, [facility] [place] [facility] [address] [id number] [place] [address]- 4908 Jul, [facility] [place] [facility] [address] [id number] [place] [address]- 8245 Jul, [facility] [place] [facility] [address] [id number] [place] [address]- 6168 Jul, [facility] [place] [facility] [address] [id number] [place] [address]- 2873 Jul, [facility] [place] [facility] [address] [id number] [place] [address]- 8597 Jul, [facility] [place] [facility] [address] [id number] [place] [address]- 9575 Jul, [facility] [place] [facility] [address] [id number] [place] [address]- 4570 Jul, [facility] [place] [facility] [address] [id number] [place] [address]- 7439 Jul, [facility] [place] [facility] [address] [id number] [place] [address]- 4795 Jun, [facility] [place] [facility] [address] [id number] [place] [address]- 5277 Jun, [facility] [place] [facility] [address] [id number] [place] [address]- 3763 Jun, [facility] [place] [facility] [address] [id number] [place] 1667 Jun, [facility] [place] [facility] [address] [id number] [place] [address]- 2512 13 Jun, 2013 [facility] [place] [facility] [address] [id number] [place] [address]- 3126 Jun, [facility] [place] [facility] [address] [id number] [place] [address]- 2156 Jun, [facility] [place] [facility] [address] [id number] [place] [address]- 8386 Jun, [facility] [place] [facility] [address] [id number] [place] [address]- 9756 Jun, [facility] [place] [facility] [address] [id number] [place] [address]- 7046 Jun, [facility] [place] [facility] [address] [id number] [place] [address]- 8136 Jun, [facility] [place] [facility] [address] [id number] [place] [address]- 9605 Jun, [facility] [place] [facility] [address] [id number] [place] [address]- 6773 May, [facility] [place] [facility] [address] [id number] [place] [address]- 3275 May, [facility] [place] [facility] [address] [id number] [place] [address]- 3338 May, [facility] [place] [facility] [address] [id number] [place] [address]- 5661 May, [facility] [place] [facility] [address] [id number] [place] [address]- 5912 May, [facility] [place] [facility] [address] [id number] [place] [address]- 1908 May, [facility] [place] [facility] [address] [id number] [place] [address] May, [facility] [place] [facility] [address] [id number] [place] [address] May, [facility] [place] [facility] [address] [id number] [place] [address] May, [facility] [place] [facility] [address] [id number] [place] [address] May, [facility] [place] [facility] [address] [id number] [place] [address] May, [facility] [place] [facility] [address] [facility] [id number] [place] [address] May, [facility] [place] [facility] [address] [id number] [place] [address] May, [facility] [place] [facility] [address] [id number] [place] [address] May, [facility] [place] [facility] [address] [id number] [place] [address] May, [facility] [place] [facility] [address] [id number] [place] [address] Apr, [facility] [place] [facility] [address] [id number], [place] [address] Apr, [facility] [place] [facility] [address] [id number] [place] [address] Apr, [facility] [place] [facility] [address] [id number], [place] [address] Apr, [facility] [place] [facility] [address] [id number], [place] [address] Mar, [facility] [place] [facility] [address] [id number], [place] [address] 2004 Mar, [facility] [place] [facility] [address] [id number] [place] [address]- [address] Mar, [facility] [place] [facility] [address] [id number], [place] [address] Mar, [facility] [place] [facility] [address] [id number], [place] [address] Mar, [facility] [place] [facility] [address] [id number] [place] [address] 12 Mar, 2013 [facility] [place] [facility] [address] [id number] [place] [address] Mar, [facility] [place] [facility] [address] [id number] [place] [address] Mar, [facility] [place] [facility] [address] [id number] [place] [address] Mar, [facility] [place] [facility] [address] [id number] [place] [address] Mar, [facility] [place] [facility] [address] [id number] [place] [address] Mar, [facility] [place] [facility] [address] [id number] [place] [address] Mar, [facility] [place] [facility] [address] [id number] [place] [address] Feb, [facility] [place] [facility] [address] [id number] [place] [address] 18 Jan, 2013 [facility] [place] [facility] [address] [id number] [place] [address] 17 Jan, 2013 [facility] [place] [facility] [address] [facility] [id number] [place] [address] 06 Jan, 2013 [facility] [place] [facility] [address] [id number] [place] [address] 04 Jan, 2013 [facility] [place] [facility] [address] [id number] [place] [address] Jan, [facility] [place] [facility] [address] [id number] [place] [address] Dec, [facility] [place] [facility] [address] [id number] [place] [address] Dec, [facility] [place] [facility] [address] [id number] [place] [address] Dec, [facility] [place] [facility] [address] [id number] [place] [address] Dec, [facility] [place] [facility] [address] [id number] [place] [address] Dec, [facility] [place] [facility] [address] [id number] [place] [address] Dec, [facility] [place] [facility] [address] [id number] [place] [address] Dec, [facility] [place] [facility] [address] [id number] [place] [address] Dec, [facility] [place] [facility] [address] [id number] [place] [address] Nov, [facility] [place] [facility] [address] [id number] [place] [address] Nov, [facility] [place] [facility] [address] [id number] [place] [address] Nov, [facility] [place] [facility] [address] [id number] [place] [address] Nov, [facility] [place] [facility] [address] [id number] [place] [address] Nov, [facility] [place] [facility] [address] [id number] [place] [address] Nov, [facility] [place] [facility] [address] [id number] [place] [address] Oct, [facility] [address] [id number] [place] [id number] Oct, [facility] [address] [id number] [place] [id number] Oct, [facility] [address] [id number] [place] [id number] Oct, [facility] [address] [id number] [place] [id number] Oct, [facility] [place] [facility] [address] [id number] [place] [address] 13 Oct, 2012 [facility] [address] [id number] [place] [address] Oct, [facility] [address] [id number] [place] [address] Oct, [facility] [address] [id number] [place] [address] Oct, [facility] [address] [id number] [place] [address] Oct, [facility] [address] [id number] [place] [address] Oct, [facility] [address] [id number] [place] [address] September, [facility] [address] [id number] [place] [address] Aug, [facility] [address] [id number] [place] [address] Aug, [facility] [address] [id number] [place] [address] Aug, [facility] [address] [id number] [place] [address] Aug, [facility] [address] [id number] [place] [address] 24 Jul, 2012 [facility] [address] [id number] [place] [address] Jul, [facility] [place] [facility] [address] [id number] [place] [address] Jul, [facility] [place] [facility] [address] [id number] [place] [address] 05 Jul, 2012 [facility] [address] [id number] [place] [address] Jul, [facility] [address] [id number] [place] [address] 19 Jun, 2012 [facility] [address] [id number] [place] [address] Jun, [facility] [address] [id number] [place] [address] Jun, [facility] [address] [id number] [place] [address] May, [facility] [address] [id number] [place] [address] 24 May, 2012 [facility] [address] [id number] [place] [address] May, [facility] [address] [id number] [place] [address] May, [facility] [address] [id number], [place] [address] May, [facility] [address] [id number] [place] [address] May, [facility] [address] [id number], [place] [address] 18 Apr, 2012 [facility] [address] [id number], [place] [address] 18 Apr, 2012 [facility] [place] [facility] [address] [id number], [place] [address] 13 Apr, 2012 [facility] [place] [facility] [address] [id number] [place] [address] 13 Apr, 2012 [facility] [place] [facility] [address] [id number], [place] [address] 13 Apr, 2012 [facility] [place] [facility] [address] [id number], [place] [address] 11 Apr, 2012 [facility] [address] [id number] [place] [address] Apr, [facility] [place] [facility] [address] [id number] [place] [address] Mar, [facility] [place] [facility] [address] [id number] [place] [address] Mar, [facility] [place] [facility] [address] [id number] [place] [address] Mar, [facility] [place] [facility] [address] [id number] [place] [address] Mar, [facility] [place] [facility] [address] [id number] [place] [address] 18 Jan, 2012 [facility] [place] [facility] [address] [id number] [place] [address] Jan, [facility] [place] [facility] [address] [id number] [place] [address] Jan, [facility] [place] [facility] [address] [id number], [place] [address] Jan, [facility] [address] [id number] [id number] Dec, [facility] [place] [facility] [address] [id number] [place] [address] Dec, [facility] [address] [id number] [id number] Dec, [facility] [place] [facility] [address] [id number], [place] [address] Dec, [facility] [place] [facility] [address] [id number] [place] [address] Dec, [facility] [place] [facility] [address] [facility] [id number] [place] [address] Dec, [facility] [place] [facility] [address] [id number] [place] [address] Nov, [facility] [place] [facility] [address] [facility] [id number] [place] [address] Nov, [facility] [address] [facility] [id number] [place] [address] Nov, IMMUNIZATIONS No Known Immunizations SOCIAL HISTORY Never Assessed REASON FOR VISIT right foot pain x 3 days -- torin mckeon PLAN OF CARE Activity Details Follow Up 3 Months Reason:chm VITAL SIGNS Height 64 in 2017-04-24 Weight 324 lbs 2017-04-24 Temperature 98.2 degrees Fahrenheit 2017-04-24 Heart Rate 67 bpm 2017-04-24 Respiratory Rate 20 2017-04-24 BMI 55.61 kg/m2 2017-04-24 Blood pressure systolic 115 mmHg 2017-04-24 Blood pressure diastolic 60 mmHg 2017-04-24 MEDICATIONS Medication Instructions Dosage Frequency Start Date End Date Duration Status Colcrys 0.6 MG Orally Once a day 2 tablets now then 1 tablet in one hour 24h Apr, 1 dose Active Simvastatin 20 MG Orally Once a day 1 tablet in the evening 24h Aug, 90 days Active Omeprazole 20 mg Orally Once a day 1 tablet 24h Jan, 30 days Active Tramadol HCl 50 MG Orally every 6 hrs 1 tablet as needed 6h Active Levothyroxine Sodium 150 MCG Orally Once a day TAKE ONE TABLET BY MOUTH ONCE DAILY IN THE MORNING ON AN EMPTY STOMACH 24h 30 days Active Albuterol Sulfate 90 mcg/actuation Inhalation every 4 hrs inhale 1 puff by inhalation route every 4 hours as needed 4h Jun, 30 days Active Warfarin Sodium 7.5 MG Orally 3x weekly 1 tablet Active Tylenol Extra Strength 500 MG Nov, Active Glucometer glucometer ICD10- E11.9 fasting and 2 hours after one meal daily 3 times weekly. test blood sugar Aug, Active Test strips Test Strips ICD10- E11.9 fasting and 2 hours after one meal daily 2 times weekly. test blood sugar Aug, Active Methocarbamol 500 mg Orally 4 times daily as needed 1 tablet Active Topamax 100 MG Orally Twice a day 1 tablet 12h Active Albuterol Sulfate 2.5 mg /3 mL (0.083 %) 1 Each by Inhalation route every 4 hours for cough and wheezePRNfor wheezing or cough Nov, Active Warfarin Sodium 5 mg Orally 4x weekly 1 tablet Active RESULTS Name Result Date Reference Range Xray : Foot, Right 3 views (IN HOUSE) 2017-04-24 PROCEDURES Procedure Date Ordered Result Body Site X-RAY EXAM OF FOOT Apr 24, 2017 [facility] VISIT ESTABLISHED PATIENT Apr 24, 2017 INSTRUCTIONS MEDICATIONS ADMINISTERED No Known Medications [...]
--- OUTSIDE RECORDS SUMMARY | 2018-07-26 22:11 | XMS REPORT ---
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 Active 506594190 Problem Gastroesophageal reflux disease without esophagitis K21.9 Active 319878929 Problem Coronary artery disease I25.10 Active 33932011 Problem Renal stones N20.0 Active 37891837 Problem Hypothyroidism E03.9 Active 79302043 Problem Hyperlipidemia, unspecified hyperlipidemia type E78.5 Active 76428488 Problem Acute gout involving toe of right foot, 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 Active 915805812 Problem Intractable migraine without aura and with status migrainosus G43.011 Active 932649052 ALLERGIES No Information ENCOUNTERS Encounter Location Date Diagnosis [facility] [address] [address] Nov, [facility] [address] [address] 9[address] Nov, [facility] [id number] [place] [address] 96904- 9328 Oct, [facility] [id number] [place] [address] 19537- 4322 Oct, [facility] [address] [address] Oct, [facility] [id number] [place] [address] 93245- 9896 September, [facility] [place] [id number] [place] [address] 97229- 6403 September, Type 2 diabetes mellitus with diabetic neuropathic arthropathy, 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 ; Hyperlipidemia, unspecified hyperlipidemia type E78.5 ; Personal history of pulmonary embolism Z86.711 ; Coronary artery disease I25.10 and Hypothyroidism E03.9 [facility] [place] [id number] [place] [address] 69367- 8003 September, [place] [address] 35274- 5659 Aug, Type 2 diabetes mellitus with diabetic [...] without aura and with status migrainosus G43.011 [place] [id number] [place] [address] 08454- 6383 Aug, [place] [id number] [place] [address] 59131- 4141 Aug, [facility] [place] [id number] [place] [address] 80334- 8703 Jul, Renal stones N20.0 [facility] [id number] [place] [address] 90956 -9097 Jun, Back pain M54.9 ; Kidney stones N20.0 and BMI 50.0-59.9, adult Z68.43 [place] [id number] [place] [address] 88820- 1733 Jun, [facility] [id number] [place] [address] 27246- 9847 18 Apr, 2017 [facility] [place] [id number] [place] [address] 38782- 9297 Apr, [facility] [place] [id number] [place] [address] 66062- 7929 Apr, Right foot pain M79.671 ; Acute gout involving toe of right foot, 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 and Arthritis M19.90 [facility] [place] [id number] [place] [address] 61406- 7084 06 Apr, 2017 Gastroesophageal reflux disease without esophagitis K21.9 [place] [address] 66919- 1403 Mar, Hypothyroidism, unspecified E03.[address] 72615- 9824 Feb, [facility] [place] [id number] [place] [address] 42808- 7330 25 Jan, 2017 Cervicalgia of kpxweovk-dyctsjq-ywgff region M54.2 and Persistent headaches R51 [place] [id number] [place] [address] 10065- 3588 20 Jan, 2017 [facility] [place] [id number] [place] [address] 83248- 6164 12 Jan, 2017 Intractable migraine without aura and with status migrainosus G43.011 ; Cervical spine pain M54.2 ; Hyperlipidemia, unspecified hyperlipidemia type E78.5 ; Hypothyroidism E03.9 and Metabolic syndrome E88.81 [facility] [id number] [place] [address] 29402- 5919 Jan, Hypothyroidism, unspecified E03.9 [facility] [place] [id number] [place] [address] 04228- 4874 Dec, Hypothyroidism, unspecified E03.9 [facility] [place] [id number] [place] [address] 14992- 8300 Dec, Hypothyroidism E03.9 [facility] [place] [id number] [place] [address] 04652- 5862 Nov, Laceration of left great toe w/o foreign body w/o damage to nail, initial encounter S91.112A [facility] [place] [id number] [place] [address] 15419 -1523 Oct, Pain in left knee M25.562 and Arthritis M19.90 [facility] [id number] [place] [address] 97405- 9015 Oct, Hypothyroidism, unspecified E03.9 and Hyperlipidemia, unspecified hyperlipidemia type E78.[address] 37695- 8644 Oct, Gastroesophageal reflux disease without esophagitis K21.9 [place] [address] 21392- 5279 14 Oct, 2016 Metabolic syndrome E88.81 ; Personal history of pulmonary embolism Z86.711 ; Other specified hypothyroidism E03.8 and Hyperlipidemia, unspecified hyperlipidemia type E78.[address] 64250- 2723 13 Oct, 2016 Personal history of pulmonary embolism Z86.711 ; Dysuria R30.0 ; Metabolic syndrome E88.81 ; Other specified hypothyroidism E03.8 ; Hyperlipidemia, unspecified hyperlipidemia type E78.5 and Morbid obesity with BMI of 50.0-59.9, adult Z68.43 [place] [id number] [place] [address] 60009- 3901 September, [facility] [place] [address] 04638 -4406 September, Wrist pain, left M25.532 and Acute pain of left knee M25.562 [place] [id number] [place] [address] 31545- 7486 Jul, Dysuria R30.0 [facility] [id number] [place] [address] 90654- 1696 30 Jul, 2016 Dysuria R30.[address] 31499- 7243 16 Jul, 2016 Left lower quadrant pain R10.32 [place] [address] 31772- 4071 14 Jul, 2016 [place] [address] 79622- 4569 Jul, Coronary artery disease I25.10 ; Family history of diabetes mellitus Z83.3 ; Morbid obesity with BMI of 50.0-59.9, adult Z68.43 ; Metabolic syndrome E88.81 ; Personal history of pulmonary embolism Z86.711 ; Gastroesophageal reflux disease without esophagitis K21.9 ; Hypothyroidism, unspecified E03.9 ; Hyperlipidemia, unspecified hyperlipidemia type E78.5 and Left lower quadrant pain R10.32 [facility] [address] 16079 -8327 09 Jul, 2016 [facility] [address] 22919 -4282 08 Jul, 2016 Morbid obesity with BMI of 50.0-59.9, adult Z68.43 [facility] [address] 09905 -6457 Jul, Generalized abdominal pain R10.84 [facility] [address] 96548 -1763 Jun, Muscle strain of right upper back, initial encounter S29.012A [facility] [address] 96041 -7539 May, Foreign body (FB) in soft tissue M79.5 [place] [address] 20047- 1087 Mar, Hypothyroidism, unspecified E03.9 and Arthritis M19.90 [facility] [id number] [place] [address] 84360- 3823 13 Feb, 2016 Coronary artery disease I25.10 ; Morbid obesity with BMI of 50.0-59.9, adult Z68.43 ; Metabolic syndrome E88.81 ; Gastroesophageal reflux disease without esophagitis K21.9 ; Hypothyroidism, unspecified E03.9 ; Personal history of pulmonary embolism Z86.711 and Hyperlipidemia, unspecified hyperlipidemia type E78.5 [place] [address] 88474- 4025 10 Feb, 2016 [facility] [place] [id number] [place] [address] 75699 -2214 12 Jan, 2016 Acute right-sided thoracic back pain M54.6 [place] [address] 73036- 6377 Jan, Acute pain of left knee M25.562 [place] [address] 24420- 0617 Dec, Dysuria R30.0 ; Metabolic syndrome E88.81 ; Acute pain of left knee M25.562 ; Acute cystitis with hematuria N30.01 and Acute left eye pain H57.12 [facility] [id number] [place] [address] 32309- 2963 16 Dec, 2015 [facility] [id number] [place] [address] 28663- 1019 Dec, [facility] [place] [id number] [place] [address] 49648- 0536 Dec, Hypothyroidism, unspecified E03.9 [place] [address] 28811- 7294 Dec, [facility] [id number] [place] [address] 48272- 7814 Nov, Peripheral edema R60.9 and Acute pain of left knee M25.562 [facility] [place] [address] 90789 -7129 September, [facility] [id number] [place] [address] 50609- 0852 September, Metabolic syndrome E88.81 and Allergy, subsequent encounter T78.40XD [facility] [place] [id number] [place] [address] 85834 -0556 September, Muscle strain T14.[address] 01394- 8624 Aug, Chest pressure R07.89 ; Metabolic syndrome E88.81 ; Morbid obesity with BMI of 50.0-59.9, adult Z68.43 ; Esophageal reflux 530.81 and Shortness of breath R06.02 [place] [id number] [place] [address] 40227- 5940 Aug, [address] 61012- 9903 Aug, [place] [address] 89301- 6945 Aug, Hypothyroidism, unspecified E03.[address] 16102- 1813 Aug, Routine health maintenance Z00.00 [facility] IN [place] [id number] [place] [address] 61668 -6234 Aug, [address] 81094- 2877 Jul, Routine health maintenance Z00.00 ; Family history of diabetes mellitus Z83.3 ; Family history of cancer Z80.9 and Morbid obesity with BMI of 50.0-59.9, adult Z68.43 [facility] [place] [id number] [place] [address] 50298 -0937 Jul, Allergic rhinitis J30.9 and Postnasal drip R09.[address] 70341- 7201 Jul, Influenza J11.1 [facility] [address] [address] -7982 Jul, Dysuria R30.0 [facility] [id number] [place] [address] 13408- 1688 Apr, [facility] [id number] [place] [address] 65472- 9485 Mar, Acute upper respiratory infection, unspecified J06.9 and Hypothyroidism E03.9 [facility] [id number] [place] [address] 75138- 3917 Mar, [facility] [id number] [place] [address] 47742- 3994 Feb, Coronary artery disease I25.10 [facility] [id number] [place] [address] 40892- 5877 Feb, Left foot pain M79.672 [facility] [address] [place] [address] 57713- 9506 Jan, UTI (urinary tract infection) 599.0 [facility] [address] [place] [address] 09188- 8839 Jan, Urinary tract infection, site not specified 599.0 [facility] [address] [place] [address] 12686- 5712 Jan, Urinary tract infection, site not specified 599.0 [facility] [id number] [place] [address] 94409- 2592 Jan, [facility] [id number] [place] [address] 08461- 1163 Dec, Headache 784.0 [facility] [id number] [place] [address] 76865- 4683 Dec, Urinary tract infection, site not specified 599.0 [facility] [id number] [address]- 2773 Dec, Urinary tract infection, site not specified 599.0 [facility] [id number] [place] [address] 082962- 6370 Dec, Urinary tract infection, site not specified 599.0 [facility] [address] 4953 Nov, Unspecified sleep apnea 780.57 ; Encounter for long-term ( current) use of anticoagulants V58.61 ; [facility] V70.0 and Arthritis of both knees 716.96 [facility] [id number] [place] [address] 44560- 0111 September, Cat bite of hand 882.0 and Rectal bleeding 569.3 [facility] [address] [address]- 5252 Aug, [facility] [id number] [place] [address] 34413- 7619 Aug, [facility] [address] [address]- 2051 Jul, [facility] [address] [place] [address] 95233- 2945 Jul, [facility] [address], [place] [address]- 9873 Jul, [facility] [address], [place] [address]- 4090 Jul, [facility] [address] 3060 Jul, [facility] [address] 7202 Jul, [facility] [address] [address]- 7023 Jul, [facility] [id number] [place] [address] [place] [address]- 7741 Jul, [facility] [place] [facility] [address] [id number] [place] [address]- 9782 May, [facility] [place] [facility] [address] [id number] [place] [address]- 4469 May, [facility] [place] [facility] [address] [id number] [place] [address]- 4434 May, [facility] [place] [facility] [address] [id number] [place] [address]- 2431 May, [facility] [place] [facility] [address] [id number] [place] [address]- 3778 May, [facility] [place] [facility] [address] [id number] [place] [address]- 6337 May, [facility] [place] [facility] [address] [id number] [place] [address]- 2522 May, [facility] [place] [facility] [address] [id number] [place] [address]- 4962 Mar, [facility] [place] [facility] [address] [id number] [place] [address]- 3185 Mar, [facility] [place] [facility] [address] [id number] [place] [address]- 7926 08 Jan, 2013 [facility] [place] [facility] [address] [id number] [place] [address]- 7521 08 Sep, 2013 [facility] [place] [facility] [address] [id number] [address]- 4637 08 Sep, 2013 [facility] [place] [facility] [address] [id number] [place] [address]- 1520 08 Sep, 2013 [facility] [place] [facility] [address] [id number] [place] [address]- 4719 05 Sep, 2013 [facility] [place] [facility] [address] [id number], [place] [address]- 6927 05 Sep, 2013 [facility] [place] [facility] [address] [id number] [place] [address]- 1817 Dec, [facility] [place] [facility] [address] [id number] [place] [address]- 0439 Dec, [facility] [place] [facility] [address] [id number] [place] [address]- 2410 Dec, [facility] [place] [facility] [address] [id number] [place] [address]- 9528 Dec, [facility] [place] [facility] [address] [id number] [place] [address]- 5493 Dec, [facility] [place] [facility] [address] [id number] [place] [address]- 9231 Dec, [facility] [place] [facility] [address] [id number] [place] [address]- 2167 Dec, [facility] [place] [facility] [address] [id number] [place] [address]- 7677 Dec, [facility] [place] [facility] [address] [id number] [place] [address]- 4553 Dec, [facility] [place] [facility] [address] [id number] [place] [address]- 3933 Dec, [facility] [place] [facility] [address] [id number] [place] [address]- 3236 Nov, [facility] [place] [facility] [address] [id number] [place] [address]- 6605 Nov, [facility] [place] [facility] [address] [id number] [place] [address]- 7260 September, [facility] [place] [facility] [address] [id number] [place] [address]- 6960 September, [facility] [place] [facility] [address] [id number] [place] [address]- 0024 September, [facility] [place] [facility] [address] [id number] [place] [address]- 0880 September, [facility] [place] [facility] [address] [id number] [place] [address]- 6484 Aug, [facility] [place] [facility] [address] [id number] [place] [address]- 4689 Aug, [facility] [place] [facility] [address] [id number] [place] [address]- 5466 Aug, [facility] [place] [facility] [address] [id number] [place] [address]- 0356 Aug, [facility] [place] [facility] [address] [id number] [place] [address]- 1090 Aug, [facility] [place] [facility] [address] [id number] [place] [address]- 4670 Aug, [facility] [place] [facility] [address] [id number] [place] [address]- 4703 Aug, [facility] [place] [facility] [address] [id number] [place] [address]- 1593 Aug, [facility] [place] [facility] [address] [id number] [place] [address]- 9510 Aug, [facility] [place] [facility] [address] [id number] [place] [address]- 7175 Aug, [facility] [place] [facility] [address] [id number] [place] [address]- 1415 Aug, [facility] [place] [facility] [address] [id number], [place] [address]- 9472 Aug, [facility] [place] [facility] [address] [id number] [place] [address]- 2187 Jul, [facility] [place] [facility] [address] [id number] [place] [address]- 8791 Jul, [facility] [place] [facility] [address] [id number] [place] [address]- 2637 Jul, [facility] [place] [facility] [address] [id number] [place] [address]- 0429 Jul, [facility] [place] [facility] [address] [id number] [place] [address]- 4225 Jul, [facility] [place] [facility] [address] [id number] [place] 9679 Jul, [facility] [place] [facility] [address] [id number] [place] [address]- 3878 05 Jul, 2013 [facility] [place] [facility] [address] [id number] [place] [address]- 2996 05 Jul, 2013 [facility] [place] [facility] [address] [id number] [place] [address]- 2415 Jul, [facility] [place] [facility] [address] [facility] [id number] [place] [address]- 9831 Jul, [facility] [place] [facility] [address] [facility] [id number] [place] [address]- 8607 28 Jun, 2013 [facility] [place] [facility] [address] [facility] [id number] [place] [address]- 4683 28 Jun, 2013 [facility] [place] [facility] [address] [facility] [id number] [place] [address]- 3588 17 Jun, 2013 [facility] [place] [facility] [address] [facility] [id number] [place] [address]- 4290 17 Jun, 2013 [facility] [place] [facility] [address] [facility] [id number] [place] [address]- 4562 13 Jun, 2013 [facility] [place] [facility] [address] [facility] [id number] [place] [address]- 3693 13 Jun, 2013 [facility] [place] [facility] [address] [id number] [place] [address]- 9128 13 Jun, 2013 [facility] [place] [facility] [address] [facility] [id number] [place] [address]- 5398 13 Jun, 2013 [facility] [place] [facility] [address] [facility] [id number] [place] [address]- 6151 Jun, [facility] [place] [facility] [address] [id number] [place] [address]- 5951 Jun, [facility] [place] [facility] [address] [id number] [place] [address]- 3518 Jun, [facility] [place] [facility] [address] [id number] [place] [address]- 9039 Jun, [facility] [place] [facility] [address] [id number] [place] [address]- 2518 May, [facility] [place] [facility] [address] [id number] [place] [address]- 4228 May, [facility] [place] [facility] [address] [id number] [place] [address]- 8978 May, [facility] [place] [facility] [address] [id number] [place] [address]- 3185 May, [facility] [place] [facility] [address] [id number] [place] [address]- 1203 May, [facility] [place] [facility] [address] [id number], [place] [address]- 8807 May, [facility] [place] [facility] [address] [id number] [place] [address]- 8060 May, [facility] [place] [facility] [address] [id number], [place] [address]- 0370 May, [facility] [place] [facility] [address] [id number], [place] [address]- 0523 May, [facility] [place] [facility] [address] [id number], [place] [address]- 0899 May, [facility] [place] [facility] [address] [id number], [place] [address]- 3413 May, [facility] [place] [facility] [address] [id number] [place] [address] May, [facility] [place] [facility] [address] [id number] [place] [address] May, [facility] [address] [id number] [place] [address] May, [facility] [address] [id number] [place] [address] May, [facility] [address] [id number] [place] [address] Apr, [facility] [address] [id number] [place] [address] Apr, [facility] [address] [id number] [place] [address] Apr, [facility] [address] [id number] [place] [address] Apr, [facility] [address] [id number] [place] [address] Mar, [facility] [address] [id number] [place] [address] Mar, [facility] [address] [id number] [place] [address] Mar, [facility] [address] [id number] [place] [address] Mar, [facility] [address] [id number] [place] [address] Mar, [facility] [address] [id number] [place] [address] Mar, [facility] [place] [facility] [address] [id number] [place] [address] Mar, [facility] [address] [id number] [place] [address] Mar, [facility] [address] [id number] [place] [address] Mar, [facility] [place] [facility] [address] [id number] [place] [address] Mar, [facility] [place] [facility] [address] [id number] [place] [address]- [address] Mar, [facility] [place] [facility] [address] [id number] [place] [address] Mar, [facility] [place] [facility] [address] [id number] [place] [address] Feb, [facility] [place] [facility] [address] [id number] [place] [address]- [address] 18 Jan, 2013 [facility] [place] [facility] [address] [id number] [place] [address] 17 Jan, 2013 [facility] [place] [facility] [address] [id number] [place] [address]- [address] 06 Jan, 2013 [facility] [place] [facility] [address] [id number] [place] [address]- [address] Jan, [facility] [place] [facility] [address] [id number] [place] [address] Jan, [facility] [place] [facility] [address] [id number] [place] [address] Dec, [facility] [place] [facility] [address] [id number] [place] [address] Dec, [facility] [place] [facility] [address] [id number] [place] [address] Dec, [facility] [place] [facility] [address] [id number] [place] [address]- [address] 16 Dec, 2012 [facility] [place] [facility] [address] [id number] [place] [address] Dec, [facility] [place] [facility] [address] [id number] [place] [address] Dec, [facility] [place] [facility] [address] [id number] [place] [address] Dec, [facility] [place] [facility] [address] [id number] [place] [address] Dec, [facility] [place] [facility] [address] [id number] [place] [address] Nov, [facility] [place] [facility] [address] [id number] [place] [address] Nov, [facility] [place] [facility] [address] [id number] [place] [address] Nov, [facility] [place] [facility] [address] [id number] [place] [address] Nov, [facility] [place] [facility] [address] [facility] [id number] [place] [address] Nov, [facility] [place] [facility] [address] [facility] [id number][place] [address] Nov, [facility] [place] [facility] [address] [facility] [id number], [place] [address] Oct, [facility] [address] [id number] [id number] Oct, [facility] [address] [facility] [id number][place] [id number] Oct, [facility] [address] [id number] [id number] Oct, [facility] [address] [facility] [id number][place] [id number] Oct, [facility] [place] [facility] [address] [id number], [place] [address] Oct, [facility] [place] [facility] [address] [facility] [id number] [place] [address] Oct, [facility] [place] [facility] [address] [id number], [place] [address] Oct, [facility] [place] [facility] [address] [facility] [id number] [place] [address] Oct, [facility] [address] [id number] [place] [address] Oct, [facility] [place] [facility] [address] [id number] [place] [address] Oct, [facility] [place] [facility] [address] [id number] [place] [address] September, [facility] [place] [facility] [address] [id number] [place] [address] Aug, [facility] [place] [facility] [address] [id number] [place] [address] Aug, [facility] [place] [facility] [address] [id number] [place] [address] Aug, [facility] [place] [facility] [address] [id number] [place] [address] Aug, [facility] [place] [facility] [address] [id number] [place] [address] Jul, [facility] [place] [facility] [address] [id number] [place] [address] Jul, [facility] [place] [facility] [address] [id number] [place] [address] Jul, [facility] [place] [facility] [address] [id number], [place] [address] Jul, [facility] [place] [facility] [address] [id number], [place] [address] Jul, [facility] [place] [facility] [address] [id number] [place] [address] Jun, [facility] [place] [facility] [address] [id number] [place] [address] Jun, [facility] [place] [facility] [address] [id number] [place] [address] Jun, [facility] [place] [facility] [address] [id number] [place] [address] 31 May, 2012 [facility] [address] [id number] [place] [address] 24 May, 2012 [facility] [address] [id number] [place] [address] 14 May, 2012 [facility] [address] [id number] [place] [address] May, [facility] [address] [id number] [place] [address] May, [facility] [address] [id number] [place] [address] May, [facility] [address] [id number] [place] [address] 18 Apr, 2012 [facility] [address] [id number] [place] [address] 18 Apr, 2012 [facility] [address] [id number] [place] [address] 13 Apr, 2012 [facility] [address] [id number] [place] [address] Apr, [facility] [address] [id number] [place] [address] 13 Apr, 2012 [facility] [address] [id number] [place] [address] Apr, [facility] [address] [id number] [place] [address] Apr, [facility] [address] [id number] [place] [address] Mar, [facility] [address] [id number] [place] [address] Mar, [facility] [address] [id number] [place] [address] Mar, [facility] [address] [id number], [place] [address] Mar, [facility] [id number], [place] [address] Jan, [facility] [address] [id number], [place] [address] Jan, [facility] [id number], [place] [address] Jan, [facility] [id number], [place] [address] Jan, [facility] [id number] [id number] Dec, [facility] [id number], [place] [address] Dec, [facility] [id number] [id number] Dec, [facility] [id number], [place] [address] Dec, [facility] [id number], [place] [address] Dec, [facility] [id number], [place] [address] Dec, [facility] [address] [id number], [place] [address] Nov, [facility] [address] [id number], [place] [address] Nov, [facility] [address] [id number], [place] [address] Nov, IMMUNIZATIONS No Known Immunizations SOCIAL HISTORY [...]
--- OUTSIDE RECORDS SUMMARY | 2018-07-26 22:12 | XMS REPORT ---
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 Active 911135064 Problem Gastroesophageal reflux disease without esophagitis K21.9 Active 662679854 Problem Coronary artery disease I25.10 Active 14523524 Problem Renal stones N20.0 Active 47608898 Problem Hypothyroidism E03.9 Active 58918189 Problem Hyperlipidemia, unspecified hyperlipidemia type E78.5 Active 75421464 Problem Acute gout involving toe of right foot, 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 Active 031989225 Problem Intractable migraine without aura and with status migrainosus G43.011 Active 794557925 ALLERGIES No Information ENCOUNTERS Encounter Location Date Diagnosis [facility] [address] [address] Nov, [facility] [address] [address] Nov, [facility] [id number] [place] [address] 40560- 0932 Oct, [facility] [id number] [place] [address] 46122- 0778 Oct, [facility] [address], [place] [address] Oct, [place] [id number] [place] [address] 19203- 9575 September, [place] [id number] [place] [address] 28066- 8824 September, Type 2 diabetes mellitus with diabetic neuropathic arthropathy, 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 ; Hyperlipidemia, unspecified hyperlipidemia type E78.5 ; Personal history of pulmonary embolism Z86.711 ; Coronary artery disease I25.10 and Hypothyroidism E03.9 [place] [id number] [place] [address] 07999- 5574 September, [place] [address] 97458- 9547 Aug, Type 2 diabetes mellitus with diabetic [...] without aura and with status migrainosus G43.011 [place] [id number] [place] [address] 86860- 3352 Aug, [place] [id number] [place] [address] 24252- 5136 Aug, [place] [id number] [place] [address] 05605- 4260 Jul, Renal stones N20.0 [facility] WALK IN [facility] [id number] [place] [address] 52818 -5293 Jun, Back pain M54.9 ; Kidney stones N20.0 and BMI 50.0-59.9, adult Z68.43 [place] [id number] [place] [address] 17062- 0706 Jun, [place] [id number] [place] [address] 19738- 1099 18 Apr, 2017 [place] [id number] [place] [address] 42436- 0411 Apr, [place] [id number] [place] [address] 57887- 4582 Apr, Right foot pain M79.671 ; Acute gout involving toe of right foot, 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 and Arthritis M19.90 [place] [id number] [place] [address] 62680- 0872 06 Apr, 2017 Gastroesophageal reflux disease without esophagitis K21.9 [place] [address] 01822- 8563 Mar, Hypothyroidism, unspecified E03.[address] 02296- 0936 Feb, [place] [id number] [place] [address] 76994- 1713 25 Jan, 2017 Cervicalgia of fqeqpluo-opftvqd-mfjnc region M54.2 and Persistent headaches R51 [place] [id number] [place] [address] 26756- 0821 20 Jan, 2017 [place] [id number] [place] [address] 92636- 4658 12 Jan, 2017 Intractable migraine without aura and with status migrainosus G43.011 ; Cervical spine pain M54.2 ; Hyperlipidemia, unspecified hyperlipidemia type E78.5 ; Hypothyroidism E03.9 and Metabolic syndrome E88.81 [place] [id number] [place] [address] 44525- 8025 Jan, Hypothyroidism, unspecified E03.9 [place] [id number] [place] [address] 09124- 5907 Dec, Hypothyroidism, unspecified E03.9 [place] [id number] [place] [address] 16154- 3926 Dec, Hypothyroidism E03.9 [place] [id number] [place] [address] 71209- 0330 Nov, Laceration of left great toe w/o foreign body w/o damage to nail, initial encounter S91.112A [facility] W[facility] [place] [id number] [place] [address] 04468 -1899 Oct, Pain in left knee M25.562 and Arthritis M19.90 [place] [id number] [place] [address] 09209- 8886 Oct, Hypothyroidism, unspecified E03.9 and Hyperlipidemia, unspecified hyperlipidemia type E78.[address] 47048- 4312 Oct, Gastroesophageal reflux disease without esophagitis K21.9 [place] [address] 78921- 2947 14 Oct, 2016 Metabolic syndrome E88.81 ; Personal history of pulmonary embolism Z86.711 ; Other specified hypothyroidism E03.8 and Hyperlipidemia, unspecified hyperlipidemia type E78.[address] 46064- 2051 13 Oct, 2016 Personal history of pulmonary embolism Z86.711 ; Dysuria R30.0 ; Metabolic syndrome E88.81 ; Other specified hypothyroidism E03.8 ; Hyperlipidemia, unspecified hyperlipidemia type E78.5 and Morbid obesity with BMI of 50.0-59.9, adult Z68.43 [place] [id number] [place] [address] 33566- 7358 September, [facility] WALK IN [place] [address] 17458 -3548 September, Wrist pain, left M25.532 and Acute pain of left knee M25.562 [place] [id number] [place] [address] 53417- 4309 Jul, Dysuria R30.0 [place] [id number] [place] [address] 36441- 3148 30 Jul, 2016 Dysuria R30.[address] 05674- 4523 16 Jul, 2016 Left lower quadrant pain R10.32 [place] [address] 96272- 7536 14 Jul, 2016 [place] [address] 43962- 8334 Jul, Coronary artery disease I25.10 ; Family history of diabetes mellitus Z83.3 ; Morbid obesity with BMI of 50.0-59.9, adult Z68.43 ; Metabolic syndrome E88.81 ; Personal history of pulmonary embolism Z86.711 ; Gastroesophageal reflux disease without esophagitis K21.9 ; Hypothyroidism, unspecified E03.9 ; Hyperlipidemia, unspecified hyperlipidemia type E78.5 and Left lower quadrant pain R10.32 [facility] WALK IN [address] 72730 -6869 09 Jul, 2016 [facility] WALK IN [address] 86690 -6102 08 Jul, 2016 Morbid obesity with BMI of 50.0-59.9, adult Z68.43 [facility] W[facility] [address] 13537 -7062 Jul, Generalized abdominal pain R10.84 [facility] W[facility] IN [address] 22363 -7725 Jun, Muscle strain of right upper back, initial encounter S29.012A [facility] WALK IN [address] 04357 -6868 May, Foreign body (FB) in soft tissue M79.5 [place] [address] 94363- 4778 Mar, Hypothyroidism, unspecified E03.9 and Arthritis M19.90 [place] [id number] [place] [address] 83112- 0051 13 Feb, 2016 Coronary artery disease I25.10 ; Morbid obesity with BMI of 50.0-59.9, adult Z68.43 ; Metabolic syndrome E88.81 ; Gastroesophageal reflux disease without esophagitis K21.9 ; Hypothyroidism, unspecified E03.9 ; Personal history of pulmonary embolism Z86.711 and Hyperlipidemia, unspecified hyperlipidemia type E78.5 [place] [address] 17514- 5116 10 Feb, 2016 [facility] W[facility] IN [place] [id number] [place] [address] 62504 -8929 12 Jan, 2016 Acute right-sided thoracic back pain M54.6 [place] [address] 98051- 7804 Jan, Acute pain of left knee M25.562 [place] [address] 24134- 2911 Dec, Dysuria R30.0 ; Metabolic syndrome E88.81 ; Acute pain of left knee M25.562 ; Acute cystitis with hematuria N30.01 and Acute left eye pain H57.12 [place] [id number] [place] [address] 80103- 9272 16 Dec, 2015 [place] [id number] [place] [address] 86233- 6540 Dec, [place] [id number] [place] [address] 64742- 8068 Dec, Hypothyroidism, unspecified E03.9 [place] [address] 80179- 5054 Dec, [place] [id number] [place] [address] 02030- 0777 Nov, Peripheral edema R60.9 and Acute pain of left knee M25.562 [facility] W[facility] IN [place] [address] 14278 -9734 September, [place] [id number] [place] [address] 15426- 6778 September, Metabolic syndrome E88.81 and Allergy, subsequent encounter T78.40XD [facility] [place] [id number] [place] [address] 41975 -3318 September, Muscle strain T14.[address] 56311- 4427 Aug, Chest pressure R07.89 ; Metabolic syndrome E88.81 ; Morbid obesity with BMI of 50.0-59.9, adult Z68.43 ; Esophageal reflux 530.81 and Shortness of breath R06.02 [place] [id number] [place] [address] 04170- 0469 Aug, [address] 77962- 9258 Aug, [place] [address] 61858- 7365 Aug, Hypothyroidism, unspecified E03.[address] 82843- 7483 Aug, Routine health maintenance Z00.00 [facility] WALK IN [place] [id number] [place] [address] 21015 -1941 Aug, [address] 03226- 9087 Jul, Routine health maintenance Z00.00 ; Family history of diabetes mellitus Z83.3 ; Family history of cancer Z80.9 and Morbid obesity with BMI of 50.0-59.9, adult Z68.43 [facility] WALK IN [place] [id number] [place] [address] 85790 -4460 Jul, Allergic rhinitis J30.9 and Postnasal drip R09.[address] 59962- 4797 Jul, Influenza J11.1 [facility]ARE [address], [place] [address]40 Jul, Dysuria R30.0 [facility] [address] [place] [address] 17421- 8921 Apr, [facility] [id number] [place] [address] 40601- 4171 Mar, Acute upper respiratory infection, unspecified J06.9 and Hypothyroidism E03.9 [facility] [id number] [place] [address] 66003- 2961 Mar, [facility] [id number] [place] [address] 44546- 4510 Feb, Coronary artery disease I25.10 [facility] [id number] [place] [address] 78165- 8861 Feb, Left foot pain M79.672 [facility] [address] [place] [address] 50133- 9780 Jan, UTI (urinary tract infection) 599.0 [facility] [address] [place] [address] 75172- 9052 Jan, Urinary tract infection, site not specified 599.0 [facility] [address] [place] [address] 30661- 0926 Jan, Urinary tract infection, site not specified 599.0 [facility] [address] [place] [address] 90985- 2960 Jan, [facility] [id number] [place] [address] 41093- 6464 Dec, Headache 784.0 [facility] [address] [place] [address] 52079- 0498 Dec, Urinary tract infection, site not specified 599.0 [facility] [id number] [address] Dec, Urinary tract infection, site not specified 599.0 [facility] [id number] [place] [address] 263202- 2896 Dec, Urinary tract infection, site not specified 599.0 [facility] [address] 7609 Nov, Unspecified sleep apnea 780.57 ; Encounter for long-term ( current) use of anticoagulants V58.61 ; Routine general medical examination at [facility] care facility V70.0 and Arthritis of both knees 716.96 [facility] [id number] [place] [address] 53984- 5445 September, Cat bite of hand 882.0 and Rectal bleeding 569.3 [facility] [address], [place] [address]- 0557 Aug, [facility] [id number] [place] [address] 37329- 5984 Aug, [facility] [address], [place] [address]- 8167 Jul, [facility] [id number] [place] [address] 79534- 0379 Jul, [facility] [address], [place] [address]- 0263 Jul, [facility] [address], [place] [address]- 3812 Jul, [facility] [address] [address]- 6279 Jul, [facility] [address]- 2081 Jul, [facility] [address] [address]- 0640 Jul, [facility] [id number] [place] [address] [place] [address]- 6246 Jul, [facility] [place] [facility] [address] [id number] [place] [address]- 2301 May, [facility] [place] [facility] [address] [id number] [place] [address]- 4725 May, [facility] [place] [facility] [address] [id number] [place] [address]- 7857 May, [facility] [place] [facility] [address] [id number] [place] [address]- 9284 May, [facility] [place] [facility] [address] [id number] [place] [address]- 9830 May, [facility] [place] [facility] [address] [id number] [place] [address]- 3477 May, [facility] [place] [facility] [address] [id number] [place] [address]- 6610 May, [facility] [place] [facility] [address] [id number] [place] [address]- 8118 Mar, [facility] [place] [facility] [address] [id number] [place] [address]- 3177 Mar, [facility] [place] [facility] [address] [id number] [place] [address]- 8017 08 Jan, 2013 [facility] [place] [facility] [address] [id number] [place] [address]- 3046 08 Sep, 2013 [facility] [place] [facility] [address] [id number] [address]- 3259 08 Sep, 2013 [facility] [place] [facility] [address] [id number] [place] [address]- 7738 08 Sep, 2013 [facility] [place] [facility] [address] [id number] [place] [address]- 2145 05 Sep, 2013 [facility] [place] [facility] [address] [id number], [place] [address]- 0809 05 Sep, 2013 [facility] [place] [facility] [address] [id number] [place] [address]- 7074 Dec, [facility] [place] [facility] [address] [id number] [place] [address]- 8360 Dec, [facility] [place] [facility] [address] [id number] [place] [address]- 3136 Dec, [facility] [place] [facility] [address] [id number] [place] [address]- 2633 Dec, [facility] [place] [facility] [address] [id number] [place] [address]- 8290 Dec, [facility] [place] [facility] [address] [id number] [place] [address]- 5310 Dec, [facility] [place] [facility] [address] [id number] [place] [address]- 7839 Dec, [facility] [place] [facility] [address] [id number] [place] [address]- 0251 Dec, [facility] [place] [facility] [address] [id number] [place] [address]- 7578 Dec, [facility] [place] [facility] [address] [id number] [place] [address]- 8217 Dec, [facility] [place] [facility] [address] [id number] [place] [address]- 5594 Nov, [facility] [place] [facility] [address] [id number] [place] [address]- 9561 Nov, [facility] [place] [facility] [address] [id number] [place] [address]- 7928 September, [facility] [place] [facility] [address] [id number] [place] [address]- 8745 September, [facility] [place] [facility] [address] [id number] [place] [address]- 3173 September, [facility] [place] [facility] [address] [id number] [place] [address]- 4414 September, [facility] [place] [facility] [address] [id number] [place] [address]- 6526 Aug, [facility] [place] [facility] [address] [id number] [place] [address]- 6420 Aug, [facility] [place] [facility] [address] [id number] [place] [address]- 0419 Aug, [facility] [place] [facility] [address] [id number] [place] [address]- 8366 Aug, [facility] [place] [facility] [address] [id number] [place] [address]- 6663 Aug, [facility] [place] [facility] [address] [id number] [place] [address]- 0416 Aug, [facility] [place] [facility] [address] [id number] [place] [address]- 9725 Aug, [facility] [place] [facility] [address] [id number] [place] [address]- 3069 Aug, [facility] [place] [facility] [address] [id number] [place] [address]- 9318 Aug, [facility] [place] [facility] [address] [id number] [place] [address]- 2820 Aug, [facility] [place] [facility] [address] [id number] [place] [address]- 2032 Aug, [facility] [place] [facility] [address] [id number] [address]- 5159 Aug, [facility] [place] [facility] [address] [id number] [place] [address]- 7135 Jul, [facility] [place] [facility] [address] [id number] [place] [address]- 3837 Jul, [facility] [place] [facility] [address] [id number] [place] [address]- 2472 Jul, [facility] [place] [facility] [address] [id number] [place] [address]- 0362 Jul, [facility] [place] [facility] [address] [id number] [place] [address]- 2923 Jul, [facility] [place] [facility] [address] [id number] [place] 0028 Jul, [facility] [place] [facility] [address] [id number] [place] [address]- 7999 05 Jul, 2013 [facility] [place] [facility] [address] [id number] [place] [address]- 2266 05 Jul, 2013 [facility] [place] [facility] [address] [id number] [place] [address]- 5675 Jul, [facility] [place] [facility] [address] [facility] [id number] [place] [address]- 8207 Jul, [facility] [place] [facility] [address] [facility] [id number] [place] [address]- 3895 28 Jun, 2013 [facility] [place] [facility] [address] [facility] [id number] [place] [address]- 6664 28 Jun, 2013 [facility] [place] [facility] [address] [facility] [id number] [place] [address]- 1566 17 Jun, 2013 [facility] [place] [facility] [address] [facility] [id number] [place] [address]- 8409 17 Jun, 2013 [facility] [place] [facility] [address] [facility] [id number] [place] [address]- 2242 13 Jun, 2013 [facility] [place] [facility] [address] [facility] [id number] [place] [address]- 0286 13 Jun, 2013 [facility] [place] [facility] [address] [id number] [place] [address]- 3332 13 Jun, 2013 [facility] [place] [facility] [address] [facility] [id number] [place] [address]- 7253 13 Jun, 2013 [facility] [place] [facility] [address] [facility] [id number] [place] [address]- 5408 Jun, [facility] [place] [facility] [address] [id number] [place] [address]- 7316 Jun, [facility] [place] [facility] [address] [id number] [place] [address]- 6640 Jun, [facility] [place] [facility] [address] [id number] [place] [address]- 0100 Jun, [facility] [place] [facility] [address] [id number] [place] [address]- 4886 May, [facility] [place] [facility] [address] [id number] [place] [address]- 1630 May, [facility] [place] [facility] [address] [id number] [place] [address] May, [facility] [place] [facility] [address] [id number] [place] [address] May, [facility] [place] [facility] [address] [id number] [place] [address] May, [facility] [place] [facility] [address] [id number], [place] [address] May, [facility] [place] [facility] [address] [id number] [place] [address] May, [facility] [place] [facility] [address] [id number], [place] [address] May, [facility] [place] [facility] [address] [id number], [place] [address] May, [facility] [place] [facility] [address] [id number], [place] [address] May, [facility] [place] [facility] [address] [id number], [place] [address] May, [facility] [place] [facility] [address] [id number] [place] [address] May, [facility] [place] [facility] [address] [id number] [place] [address] May, [facility] [address] [id number] [place] [address] May, [facility] [address] [id number] [place] [address] May, [facility] [address] [id number] [place] [address] Apr, [facility] [address] [id number] [place] [address] Apr, [facility] [address] [id number] [place] [address] Apr, [facility] [address] [id number] [place] [address] Apr, [facility] [address] [id number] [place] [address] Mar, [facility] [address] [id number] [place] [address] Mar, [facility] [address] [id number] [place] [address] Mar, [facility] [address] [id number] [place] [address] Mar, [facility] [address] [id number] [place] [address] Mar, [facility] [address] [id number] [place] [address] Mar, [facility] [place] [facility] [address] [id number] [place] [address] Mar, [facility] [address] [id number] [place] [address] Mar, [facility] [address] [id number] [place] [address] Mar, [facility] [place] [facility] [address] [id number] [place] [address] Mar, [facility] [place] [facility] [address] [id number] [place] [address] Mar, [facility] [place] [facility] [address] [id number] [place] [address] Mar, [facility] [place] [facility] [address] [id number] [place] [address] Feb, [facility] [place] [facility] [address] [id number] [place] [address] 18 Jan, 2013 [facility] [place] [facility] [address] [id number] [place] [address] 17 Jan, 2013 [facility] [place] [facility] [address] [id number] [place] [address] 06 Jan, 2013 [facility] [place] [facility] [address] [address] [id number] [place] [address] Jan, [facility] [place] [facility] [address] [id number] [place] [address] Jan, [facility] [place] [facility] [address] [id number] [place] [address] Dec, [facility] [place] [facility] [address] [id number] [place] [address] Dec, [facility] [place] [facility] [address] [id number] [place] [address] Dec, [facility] [place] [facility] [address] [id number] [place] [address] 16 Dec, 2012 [facility] [place] [facility] [address] [id number] [place] [address] Dec, [facility] [place] [facility] [address] [id number] [place] [address] Dec, [facility] [place] [facility] [address] [id number] [place] [address] Dec, [facility] [place] [facility] [address] [id number] [place] [address] Dec, [facility] [place] [facility] [address] [id number] [place] [address] Nov, [facility] [place] [facility] [address] [id number] [place] [address] Nov, [facility] [place] [facility] [address] [id number] [place] [address] Nov, [facility] [place] [facility] [address] [id number] [place] [address] Nov, [facility] [place] [facility] [address] [facility] [id number] [place] [address] Nov, [facility] [place] [facility] [address] [facility] [id number], [place] [address] Nov, [facility] [place] [facility] [address] [facility] [id number], [place] [address] Oct, [facility] [address] [id number] [id number] Oct, [facility] [address] [facility] [id number] [id number] Oct, [facility] [address] [id number] [id number] Oct, [facility] [address] [facility] [id number][place] [id number] Oct, [facility] [place] [facility] [address] [id number], [place] [address] Oct, [facility] [place] [facility] [address] [facility] [id number] [place] [address] Oct, [facility] [place] [facility] [address] [id number], [place] [address] Oct, [facility] [place] [facility] [address] [facility] [id number] [place] [address] Oct, [facility] [address] [id number] [place] [address] Oct, [facility] [place] [facility] [address] [id number] [place] [address] Oct, [facility] [place] [facility] [address] [id number] [place] [address] September, [facility] [place] [facility] [address] [id number] [place] [address] Aug, [facility] [place] [facility] [address] [id number] [place] [address] Aug, [facility] [place] [facility] [address] [id number] [place] [address] Aug, [facility] [place] [facility] [address] [id number] [place] [address] Aug, [facility] [place] [facility] [address] [id number] [place] [address] 110[address] Jul, [facility] [place] [facility] [address] [id number] [place] [address] Jul, [facility] [place] [facility] [address] [id number] [place] [address] Jul, [facility] [place] [facility] [address] [id number], [place] [address] Jul, [facility] [place] [facility] [address] [id number], [place] [address] Jul, [facility] [place] [facility] [address] [id number] [place] [address] Jun, [facility] [place] [facility] [address] [id number] [place] [address] Jun, [facility] [place] [facility] [address] [id number] [place] [address] Jun, [facility] [place] [facility] [address] [id number] [place] [address] 31 May, 2012 [facility] [address] [id number] [place] [address] 24 May, 2012 [facility] [address] [id number] [place] [address] 14 May, 2012 [facility] [address] [id number] [place] [address] May, [facility] [address] [id number] [place] [address] May, [facility] [address] [id number] [place] [address] May, [facility] [address] [id number] [place] [address] 18 Apr, 2012 [facility] [address] [id number] [place] [address] 18 Apr, 2012 [facility] [address] [id number] [place] [address]36 13 Apr, 2012 [facility] [address] [id number] [place] [address] Apr, [facility] [address] [id number] [place] [address]- [address]89 13 Apr, 2012 [facility] [address] [id number] [place] [address]31 Apr, [facility] [address] [id number] [place] [address] 2890 Apr, [facility] [address] [id number] [place] [address] Mar, [facility] [address] [id number] [place] [address] Mar, [facility] [address] [id number] [place] [address] Mar, [facility] [address] [id number], [place] [address] Mar, [facility] [id number], [place] [address] Jan, [facility] [id number], [place] [address] Jan, [facility] [id number], [place] [address] Jan, [facility] [id number], [place] [address] Jan, [facility] [id number] [place] [id number] Dec, [facility] [id number], [place] [address] Dec, [facility] [id number] [id number] Dec, [facility] [id number], [place] [address] Dec, [facility] [id number], [place] [address] Dec, [facility] [id number], [place] [address]46 Dec, [facility] [id number], [place] [address] Nov, [facility] [address] [id number], [place] [address] Nov, [facility] [id number], [place] [address] Nov, IMMUNIZATIONS No Known Immunizations SOCIAL HISTORY [...]
--- OUTSIDE RECORDS SUMMARY | 2018-07-26 22:12 | XMS REPORT ---
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 Active 569807451 Problem Gastroesophageal reflux disease without esophagitis K21.9 Active 057335880 Problem Coronary artery disease I25.10 Active 45226388 Problem Renal stones N20.0 Active 51615488 Problem Hypothyroidism E03.9 Active 47602012 Problem Hyperlipidemia, unspecified hyperlipidemia type E78.5 Active 12134079 Problem Acute gout involving toe of right foot, 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 Active 151492704 Problem Intractable migraine without aura and with status migrainosus G43.011 Active 818665668 ALLERGIES Substance Reaction Event Type Date Status Phenergan hallucinations Drug Allergy Jan, Active Nexium anaphylaxis Drug Allergy Jan, Active Methylprednisolone nausea and vomiting Drug Allergy Jan, Active Levothyroxine Sodium rash Drug Allergy Jan, Active Honey Bee Venom Unknown Drug Allergy Jan, Active Dexamethasone nausea and vomiting Drug Allergy Jan, Active Azithromycin hives Drug Allergy Jan, Active Amoxicillin hives Drug Allergy Jan, Active Tape Unknown Non Drug Allergy Jan, Active Adhesive Unknown Non Drug Allergy Jan, Active ENCOUNTERS Encounter Location Date Diagnosis [facility] [address] [facility] [id number] [place] [address] September, Personal history of pulmonary embolism Z86.711 ; Hyperlipidemia, unspecified hyperlipidemia type E78.5 ; Type 2 diabetes mellitus with diabetic neuropathic arthropathy, 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 ; Hypothyroidism E03.9 and Coronary artery disease I25.10 [facility] [id number] [place] [address] 89260- 1939 September, [place] [id number] [place] [address] 68099- 3263 Aug, Type 2 diabetes mellitus with diabetic [...] without aura and with status migrainosus G43.011 [place] [address] [address]79- 0476 Aug, [place] [id number] [place] [address] 21023- 3487 Aug, [place] [id number] [place] [address] 01381- 0323 Jul, Renal stones N20.0 [facility] [id number] [place] [address] 85752 -1842 Jun, Back pain M54.9 ; Kidney stones N20.0 and BMI 50.0-59.9, adult Z68.43 [place] [id number] [place] [address] 61250- 8571 Jun, [place] [id number] [place] [address] 76223- 6730 Apr, [place] [id number] [place] [address] 55540- 3228 Apr, [place] [id number] [place] [address] 81786- 3904 Apr, Right foot pain M79.671 ; Acute gout involving toe of right foot, 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 and Arthritis M19.90 [place] [address] 41473- 6931 06 Apr, 2017 Gastroesophageal reflux disease without esophagitis K21.9 [place] [address] 84178- 7469 Mar, Hypothyroidism, unspecified E03.9 [place] [address] 75779- 5821 Feb, [place] [address] 99313- 8048 25 Jan, 2017 Cervicalgia of ibjkkzaq-uylobav-xiift region M54.2 and Persistent headaches R51 [address] [address]133- 8387 Jan, [place] [address] 85939- 6865 12 Jan, 2017 Intractable migraine without aura and with status migrainosus G43.011 ; Cervical spine pain M54.2 ; Hyperlipidemia, unspecified hyperlipidemia type E78.5 ; Hypothyroidism E03.9 and Metabolic syndrome E88.81 [place] [id number] [place] [address] 56748- 4236 Jan, Hypothyroidism, unspecified E03.9 [place] [id number] [place] [address] 59230- 8402 Dec, Hypothyroidism, unspecified E03.9 [place] [id number] [place] [address] 79564- 1191 Dec, Hypothyroidism E03.9 [place] [id number] [place] [address] 53498- 9394 Nov, Laceration of left great toe w/o foreign body w/o damage to nail, initial encounter S91.112A [facility] [id number] [place] [address] Oct, Pain in left knee M25.562 and Arthritis M19.90 [place] [id number] [place] [address] 46645- 6887 Oct, Hypothyroidism, unspecified E03.9 and Hyperlipidemia, unspecified hyperlipidemia type E78.5 [place] [id number] [place] [address] 09744- 0100 Oct, Gastroesophageal reflux disease without esophagitis K21.9 [place] [id number] [place] [address] 16710- 8468 14 Oct, 2016 Metabolic syndrome E88.81 ; Personal history of pulmonary embolism Z86.711 ; Other specified hypothyroidism E03.8 and Hyperlipidemia, unspecified hyperlipidemia type E78.5 [place] [id number] [place] [address] 09877- 8824 13 Oct, 2016 Personal history of pulmonary embolism Z86.711 ; Dysuria R30.0 ; Metabolic syndrome E88.81 ; Other specified hypothyroidism E03.8 ; Hyperlipidemia, unspecified hyperlipidemia type E78.5 and Morbid obesity with BMI of 50.0-59.9, adult Z68.43 [place] [id number] [place] [address] 59994- 3303 September, [facility] [address] [place] [address] 54912 -8221 September, Wrist pain, left M25.532 and Acute pain of left knee M25.562 [place] [id number] [place] [address] 95929- 3235 Jul, Dysuria R30.0 [place] [id number] [place] [address] 10711- 5087 30 Jul, 2016 Dysuria R30.0 [place] [address] [place] [address] 74804- 1913 Jul, Left lower quadrant pain R10.32 [facility] [place] [id number] [place] [address] 96864- 4913 14 Jul, [address] 98840- 3501 09 Jul, 2016 Coronary artery disease I25.10 ; Family history of diabetes mellitus Z83.3 ; Morbid obesity with BMI of 50.0-59.9, adult Z68.43 ; Metabolic syndrome E88.81 ; Personal history of pulmonary embolism Z86.711 ; Gastroesophageal reflux disease without esophagitis K21.9 ; Hypothyroidism, unspecified E03.9 ; Hyperlipidemia, unspecified hyperlipidemia type E78.5 and Left lower quadrant pain R10.32 [facility] [address] 7[address]10 -1223 09 Jul, 2016 [facility] [address] 17445 -3426 08 Jul, 2016 Morbid obesity with BMI of 50.0-59.9, adult Z68.43 [facility] [address] 41137 -2405 07 Jul, 2016 Generalized abdominal pain R10.84 [facility] [address] 35426 -7318 02 Jun, 2016 Muscle strain of right upper back, initial encounter S29.012A [facility] [address] 90814 -4488 May, Foreign body (FB) in soft tissue M79.[address] 07536- 9877 Mar, Hypothyroidism, unspecified E03.9 and Arthritis M19.[address] 05247- 4054 13 Feb, 2016 Coronary artery disease I25.10 ; Morbid obesity with BMI of 50.0-59.9, adult Z68.43 ; Metabolic syndrome E88.81 ; Gastroesophageal reflux disease without esophagitis K21.9 ; Hypothyroidism, unspecified E03.9 ; Personal history of pulmonary embolism Z86.711 and Hyperlipidemia, unspecified hyperlipidemia type E78.5 [place] [id number] [place] [address] 61338- 5309 Feb, [facility] [id number] [place] [address] 60587 -0397 Jan, Acute right-sided thoracic back pain M54.6 [place] [address] 02743- 1590 Jan, Acute pain of left knee M25.562 [place] [address] 10555- 1083 Dec, Dysuria R30.0 ; Metabolic syndrome E88.81 ; Acute pain of left knee M25.562 ; Acute cystitis with hematuria N30.01 and Acute left eye pain H57.12 [place] [address] 21282- 7434 Dec, [place] [address] 55551- 9369 Dec, [place] [address] 86457- 4816 Dec, Hypothyroidism, unspecified E03.9 [place] [id number] [place] [address] 97589- 7839 Dec, [place] [id number] [place] [address] 17521- 4746 Nov, Peripheral edema R60.9 and Acute pain of left knee M25.562 [facility] [id number] [place] [address] 01280 -8128 September, [place] [address] 78746- 9760 September, Metabolic syndrome E88.81 and Allergy, subsequent encounter T78.40XD [facility] [address] 72142 -6454 September, Muscle strain T14.8 [place] [id number] [place] [address] 77585- 3831 Aug, Chest pressure R07.89 ; Metabolic syndrome E88.81 ; Morbid obesity with BMI of 50.0-59.9, adult Z68.43 ; Esophageal reflux 530.81 and Shortness of breath R06.02 [place] [address] 11791- 8746 Aug, [place] [address] 34629- 2714 Aug, [place] [address] 43396- 9251 Aug, Hypothyroidism, unspecified E03.[address] 99700- 6008 Aug, Routine health maintenance Z00.00 [facility] [id number] [place] [address] 29164 -9026 Aug, [place] [id number] [place] [address] 82422- 6667 Jul, Routine health maintenance Z00.00 ; Family history of diabetes mellitus Z83.3 ; Family history of cancer Z80.9 and Morbid obesity with BMI of 50.0-59.9, adult Z68.43 [facility] [id number] [place] [address] 77778 -1870 Jul, Allergic rhinitis J30.9 and Postnasal drip R09.82 [place] [id number] [place] [address] 01725- 9062 Jul, Influenza J11.1 [facility] [place] [id number] [place] [address] 64988 -9656 Jul, Dysuria R30.[address] 45669- 9467 Apr, [facility] [address] [id number], [place] [address]- 4763 Mar, Acute upper respiratory infection, unspecified J06.9 and Hypothyroidism E03.9 [facility] [address] [id number], [place] [address]- 4688 Mar, [facility] [address] [id number], [place] [address]- 0156 Feb, Coronary artery disease I25.10 [facility] [address] [id number], [place] [address]- 7097 16 Feb, 2015 Left foot pain M79.672 [facility] [address] [id number], [place] [address]- 7149 Jan, UTI (urinary tract infection) 599.0 [facility] [address] [id number], [place] [address]- 3150 Jan, Urinary tract infection, site not specified 599.0 [facility] [address] [id number], [place] [address]- 2382 Jan, Urinary tract infection, site not specified 599.0 [facility] [address] [id number], [place] [address]- 5311 Jan, [facility] [address] [id number], [place] [address]- 2712 Dec, Headache 784.0 [facility] [address] [id number], [place] [address]- 2974 Dec, Urinary tract infection, site not specified 599.0 [facility] [address] [id number], [place] [address]- 8746 Dec, Urinary tract infection, site not specified 599.0 [facility] [address] [id number], [place] [address]- 0724 Dec, Urinary tract infection, site not specified 599.0 [facility] [address] [id number][place] [address] [address]17 Nov, Unspecified sleep apnea 780.57 ; Encounter for long-term ( current) use of anticoagulants V58.61 ; Routine general medical examination at health care facility V70.0 and Arthritis of both knees 716.96 [facility] [address], [place] [address]- 2834 September, Cat bite of hand 882.0 and Rectal bleeding 569.3 [facility] [address] [id number] [address]- 2997 Aug, [facility] [id number] [place] [address] 880872- 9779 Aug, [facility] [address] [id number] [address] 0273 Jul, [facility] [id number] [place] [address] 32805- 7367 Jul, [facility] [address]65[address], [place] [address]- 6735 Jul, [facility] [address] [id number], [place] [address]- 6317 Jul, [facility] [address], [place] [address]- 6346 Jul, [facility] [address]- 4164 Jul, [facility] [address] [address]- 2299 Jul, [facility] [address], [place] [address]- 3857 Jul, [facility] [address] [address]- 2707 May, [facility] [address] 6133 May, [facility] [place] [facility] [address] [id number] [place] [address]- 6029 May, [facility] [place] [facility] [address] [id number] [place] [address]- 8566 May, [facility] [place] [facility] [address] [id number] [place] [address]- 5620 May, [facility] [place] [facility] [address] [id number] [place] [address]- 2108 May, [facility] [place] [facility] [address] [id number] [place] [address]- 8347 May, [facility] [place] [facility] [address] [id number] [place] [address]- 0170 Mar, [facility] [place] [facility] [address] [id number] [place] [address]- 9553 Mar, [facility] [place] [facility] [address] [id number] [place] [address]- 9470 08 Jan, 2013 [facility] [place] [facility] [address] [id number] [place] [address]- 6142 08 Jan, 2013 [facility] [place] [facility] [address] [id number] [place] [address]- 8181 08 Jan, 2013 [facility] [place] [facility] [address] [id number] [place] [address]- 5345 08 Jan, 2013 [facility] [place] [facility] [address] [id number] [place] [address]- 1163 Jan, 2013 [facility] [place] [facility] [address] [id number] [place] [address]- 8965 Jan, [facility] [place] [facility] [address] [id number] [place] [address]- 7656 Dec, [facility] [place] [facility] [address] [id number] [place] [address]- 5642 Dec, [facility] [place] [facility] [address] [id number] [place] [address]- 3460 Dec, [facility] [place] [facility] [address] [id number] [place] [address]- 3708 Dec, [facility] [place] [facility] [address] [id number] [place] [address]- 5095 Dec, [facility] [place] [facility] [address] [id number] [place] [address]- 8762 Dec, [facility] [place] [facility] [address] [id number] [place] [address]- 1457 Dec, [facility] [place] [facility] [address] [id number] [place] [address]- 4013 Dec, [facility] [place] [facility] [address] [id number] [place] [address]- 6264 Dec, [facility] [place] [facility] [address] [id number] [place] [address]- 0837 Dec, [facility] [place] [facility] [address] [id number] [place] [address]- 2253 Nov, [facility] [place] [facility] [address] [id number] [place] [address]- 2949 Nov, [facility] [place] [facility] [address] [id number] [place] [address]- 7368 September, [facility] [place] [facility] [address] [id number] [place] [address]- 4477 September, [facility] [place] [facility] [address] [id number] [place] [address]- 4903 September, [facility] [place] [facility] [address] [id number] [place] [address]- 8332 September, [facility] [place] [facility] [address] [id number] [place] [address]- 0655 Aug, [facility] [place] [facility] [address] [id number] [place] [address]- 1561 Aug, [facility] [place] [facility] [address] [id number] [place] [address]- 9035 Aug, [facility] [address] [id number] [place] [address]- 8052 Aug, [facility] [place] [facility] [address] [id number] [place] [address]- 6806 Aug, [facility] [address] [id number] [place] [address]- 2781 Aug, [facility] [place] [facility] [address] [id number] [place] [address]- 6365 Aug, [facility] [address] [id number] [place] [address]- 8260 Aug, [facility] [address] [id number] [place] [address]- 3061 Aug, [facility] [place] [facility] [address] [id number] [place] [address]- 7282 Aug, [facility] [address] [id number] [place] [address]- 9535 Aug, [facility] [place] [facility] [address] [id number] [place] [address]- 5868 Aug, [facility] [address] [id number] [place] [address]- 7257 Jul, [facility] [place] [facility] [address] [id number] [place] [address]- 3576 Jul, [facility] [place] [facility] [address] [id number] [place] [address]- 8595 Jul, [facility] [place] [facility] [address] [id number] [place] [address]- 9284 Jul, [facility] [place] [facility] [address] [id number] [place] [address]- 8416 Jul, [facility] [place] [facility] [address] [id number] [place] 9297 Jul, [facility] [place] [facility] [address] [id number] [place] [address]- 7990 Jul, [facility] [place] [facility] [address] [id number] [place] [address]- 8062 Jul, [facility] [place] [facility] [address] [id number] [place] [address]- 7144 Jul, [facility] [place] [facility] [address] [id number] [place] [address]- 0716 Jul, [facility] [place] [facility] [address] [id number] [place] [address]- 9720 Jun, [facility] [place] [facility] [address] [id number] [place] [address]- 3850 Jun, [facility] [place] [facility] [address] [facility] [id number] [place] [address]- 0518 Jun, [facility] [place] [facility] [address] [id number] [place] [address]- 9444 Jun, [facility] [place] [facility] [address] [facility] [id number] [place] [address]- 5006 Jun, [facility] [place] [facility] [address] [facility] [id number] [place] [address]- 9563 Jun, [facility] [place] [facility] [address] [facility] [id number] [place] [address]- 7662 Jun, [facility] [place] [facility] [address] [id number] [place] [address]- 7159 Jun, [facility] [place] [facility] [address] [id number] [place] [address]- 8994 Jun, [facility] [place] [facility] [address] [id number] [place] [address]- 5584 Jun, [facility] [place] [facility] [address] [facility] [id number] [place] [address]- 9412 Jun, [facility] [place] [facility] [address] [id number] [place] [address]- 4029 Jun, [facility] [place] [facility] [address] [id number] [place] [address]- 3810 May, [facility] [place] [facility] [address] [id number] [place] [address]- 4966 May, [facility] [place] [facility] [address] [id number] [place] [address]- 2682 May, [facility] [place] [facility] [address] [id number] [place] [address]- 4021 May, [facility] [place] [facility] [address] [id number] [place] [address]- 6096 May, [facility] [place] [facility] [address] [id number] [place] [address]- 6645 May, [facility] [place] [facility] [address] [id number] [place] [address]- 6385 May, [facility] [place] [facility] [address] [id number] [place] [address]- 2855 May, [facility] [place] [facility] [address] [id number] [place] [address]- 4380 May, [facility] [place] [facility] [address] [id number] [place] [address]- 7592 May, [facility] [place] [facility] [address] [id number] [place] [address]- 2724 May, [facility] [place] [facility] [address] [id number] [place] [address]- 7562 May, [facility] [place] [facility] [address] [id number] [place] [address]- 9948 May, [facility] [place] [facility] [address] [id number] [place] [address]- 2316 May, [facility] [place] [facility] [address] [id number] [place] [address] May, [facility] [address] [id number] [place] [address] Apr, [facility] [place] [facility] [address] [id number] [place] [address] Apr, [facility] [place] [facility] [address] [facility] [id number] [place] [address] Apr, [facility] [place] [facility] [address] [id number] [place] [address] Apr, [facility] [place] [facility] [address] [id number] [place] [address] Mar, [facility] [place] [facility] [address] [id number] [place] [address] Mar, [facility] [place] [facility] [address] [id number] [place] [address] Mar, [facility] [place] [facility] [address] [id number], [place] [address] Mar, [facility] [place] [facility] [address] [id number], [place] [address] Mar, [facility] [place] [facility] [address] [id number], [place] [address] Mar, [facility] [place] [facility] [address] [id number], [place] [address] Mar, [facility] [place] [facility] [address] [id number], [place] [address] Mar, [facility] [place] [facility] [address] [id number], [place] [address] Mar, [facility] [place] [facility] [address] [id number], [place] [address] Mar, [facility] [place] [facility] [address] [facility] [id number], [place] [address] Mar, [facility] [place] [facility] [address] [id number] [place] [address] 05 Mar, 2013 [facility] [place] [facility] [address] [id number] [place] [address] 03 Feb, 2013 [facility] [place] [facility] [address] [id number] [place] [address] 18 Jan, 2013 [facility] [place] [facility] [address] [id number] [place] [address] 17 Jan, 2012 [facility] [place] [facility] [address] [id number] [place] [address] 06 Jan, 2012 [facility] [place] [facility] [address] [id number] [place] [address] 04 Jan, 2013 [facility] [place] [facility] [address] [id number] [place] [address] Jan, [facility] [place] [facility] [address] [id number] [place] [address] Dec, [facility] [place] [facility] [address] [id number] [place] [address] Dec, [facility] [place] [facility] [address] [id number] [place] [address] Dec, [facility] [place] [facility] [address] [id number] [place] [address] Dec, [facility] [place] [facility] [address] [id number] [place] [address] Dec, [facility] [place] [facility] [address] [id number] [place] [address] Dec, [facility] [place] [facility] [address] [id number] [place] [address] Dec, [facility] [place] [facility] [address] [id number] [place] [address] Dec, [facility] [place] [facility] [address] [id number] [place] [address] Nov, [facility] [place] [facility] [address] [id number] [place] [address] Nov, [facility] [place] [facility] [address] [id number] [place] [address] Nov, [facility] [place] [facility] [address] [id number] [place] [address] Nov, [facility] [place] [facility] [address] [id number] [place] [address] Nov, [facility] [facility] [address] [id number] [place] [address] Nov, [facility] [place] [facility] [address] [id number] [place] [address] Oct, [facility] [address] [id number] [place] [id number] Oct, [facility] [address] [id number] [place] [id number] Oct, [facility] [address] [id number] [place] [id number] Oct, [facility] [address] [id number] [place] [id number] Oct, [facility] [address] [id number] [place] [address] Oct, [facility] [place] [facility] [address] [id number] [place] [address] Oct, [facility] [address] [id number] [place] [address] Oct, [facility] [address] [id number] [place] [address] Oct, [facility] [address] [id number] [place] [address] Oct, [facility] [address] [id number] [place] [address] 05 Oct, 2012 [facility] [address] [id number] [place] [address] September, [facility] [address] [id number] [place] [address] Aug, [facility] [address] [id number] [place] [address] Aug, [facility] [address] [id number] [place] [address] Aug, [facility] [address] [id number] [place] [address] Aug, [facility] [address] [id number] [place] [address] Jul, [facility] [address] [id number] [place] [address] Jul, [facility] [address] [id number] [place] [address] Jul, [facility] [address] [id number] [place] [address] Jul, [facility] [address] [id number] [place] [address] Jul, [facility] [address] [id number] [place] [address] Jun, [facility] [address] [id number] [place] [address] Jun, [facility] [address] [id number] [place] [address] Jun, [facility] [address] [id number] [place] [address] May, [facility] [address] [id number] [place] [address] 24 May, 2012 [facility] [address] [id number] [place] [address] 14 May, 2012 [facility] [address] [id number] [place] [address] 11 May, 2012 [facility] [address] [id number] [place] [address] 07 May, 2012 [facility] [address] [id number] [place] [address] 04 May, 2012 [facility] [address] [id number] [place] [address] 18 Apr, 2012 [facility] [address] [id number] [place] [address] 18 Apr, 2012 [facility] [address] [id number] [place] [address] 13 Apr, 2012 [facility] [address] [id number] [place] [address] Apr, [facility] [address] [id number] [place] [address] Apr, [facility] [address] [id number] [place] [address] Apr, [facility] [address] [id number] [place] [address] Apr, [facility] [address] [id number], [place] [address] Mar, [facility] [address] [id number], [place] [address] Mar, [facility] [address] [id number] [place] [address] Mar, [facility] [address] [id number] [place] [address] Mar, [facility] [address] [id number] [place] [address] 18 Jan, 2012 [facility] [address] [id number], [place] [address] Jan, [facility] [id number], [place] [address] Jan, [facility] [id number], [place] [address] Jan, [facility] [id number] [id number] Dec, [facility] [id number] [place] [address] Dec, [facility] [id number] [place] [id number] Dec, [facility] [id number] [place] [address] Dec, [facility] [id number] [place] [address] Dec, [facility] [id number] [place] [address] Dec, [facility] [id number] [place] [address] Nov, [facility] [address] [id number], [place] [address] Nov, [facility] [id number], [place] [address] Nov, IMMUNIZATIONS No Known Immunizations SOCIAL HISTORY Never Assessed REASON FOR VISIT Headache---DBennettRN PLAN OF CARE Activity Details Follow Up prn Reason: VITAL SIGNS Height 64 in 2017-02-02 Weight 324 lbs 2017-02-02 Temperature 97.6 degrees Fahrenheit 2017-02-02 Heart Rate 70 bpm 2017-02-02 Respiratory Rate 20 2017-02-02 BMI 55.61 kg/m2 2017-02-02 Blood pressure systolic 124 mmHg 2017-02-02 Blood pressure diastolic 68 mmHg 2017-02-02 MEDICATIONS Medication Instructions Dosage Frequency Start Date End Date Duration Status Tizanidine HCl 4 MG Orally Three times a day 1 tablet as needed 8h Jan, Feb, 30 days Active Warfarin Sodium 5 mg Orally 4x weekly 1 tablet Active Warfarin Sodium 7.5 MG Orally 3x weekly 1 tablet Active Levothyroxine Sodium 150 MCG Orally Once a day TAKE ONE TABLET BY MOUTH ONCE DAILY IN THE MORNING ON AN EMPTY STOMACH 24h 30 days Active Albuterol Sulfate 2.5 mg /3 mL (0.083 %) 1 Each by Inhalation route every 4 hours for cough and wheezePRNfor wheezing or cough Nov, Active Tylenol Extra Strength 500 MG Nov, Active Simvastatin 20 MG Orally Once a day 1 tablet in the evening 24h Aug, 90 days Active Tramadol HCl 50 MG Orally every 6 hrs 1 tablet as needed 6h Active Methocarbamol 500 mg Orally 4 times daily as needed 1 tablet Active Test strips Test Strips ICD10- E11.9 fasting and 2 hours after one meal daily 2 times weekly. test blood sugar Aug, Active Omeprazole 20 mg Orally Once a day 1 tablet 24h Jan, 30 days Active Albuterol Sulfate 90 mcg/actuation Inhalation every 4 hrs inhale 1 puff by inhalation route every 4 hours as needed 4h Jun, 30 days Active Glucometer glucometer ICD10- E11.9 fasting and 2 hours after one meal daily 3 times weekly. test blood sugar Aug, Active RESULTS Name Result Date Reference Range MRI : Cervical w/o Contrast 2017-03-06 PROCEDURES Procedure Date Ordered Result Body Site [facility] VISIT ESTABLISHED PATIENT Feb 02, 2017 INSTRUCTIONS MEDICATIONS ADMINISTERED No Known Medications [...]
--- OUTSIDE RECORDS SUMMARY | 2018-07-26 22:14 | XMS REPORT ---
Author Author YARITZA PAYAL Organization 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 [address], [place] [address] Nov, [facility] [address], [place] [address] Nov, [facility] [id number] [place] [address] 01355- 1015 Oct, [facility] [address] [place] [id number] [place] [address] 50655- 8919 Oct, 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 ; Hyperlipidemia, unspecified hyperlipidemia type E78.5 ; Personal history of pulmonary embolism Z86.711 ; Coronary artery disease I25.10 and Hypothyroidism E03.9 [place] [id number] [place] [address] 02614- 2453 September, [place] [address] [address]- [address] Aug, Type 2 diabetes mellitus with diabetic [...] without aura and with status migrainosus G43.011 [place] [id number] [place] [address] 47372- 2485 Aug, [place] [id number] [place] [address] 96056- 8531 Aug, [place] [id number] [place] [address] 07869- 9547 Jul, Renal stones N20.0 [facility] IN [facility] [id number] [place] [address] 99938 -3752 Jun, Back pain M54.9 ; Kidney stones N20.0 and BMI 50.0-59.9, adult Z68.43 [place] [address] [place] [address] 42274- 1572 Jun, [place] [id number] [place] [address] 21769- 5020 18 Apr, 2017 [place] [id number] [place] [address] 91253- 6531 Apr, [place] [id number] [place] [address] 45507- 3288 Apr, Right foot pain M79.671 ; Acute gout involving toe of right foot, 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 and Arthritis M19.90 [place] [id number] [place] [address] 97162- 3092 06 Apr, 2017 Gastroesophageal reflux disease without esophagitis K21.9 [place] [address] 16291- 1787 Mar, Hypothyroidism, unspecified E03.[address] 91736- 7502 Feb, [place] [id number] [place] [address] 54584- 6505 25 Jan, 2017 Cervicalgia of swifqwke-emceiic-rgfom region M54.2 and Persistent headaches R51 [place] [id number] [place] [address] 29525- 0225 20 Jan, 2017 [place] [id number] [place] [address] 05101- 7161 12 Jan, 2017 Intractable migraine without aura and with status migrainosus G43.011 ; Cervical spine pain M54.2 ; Hyperlipidemia, unspecified hyperlipidemia type E78.5 ; Hypothyroidism E03.9 and Metabolic syndrome E88.81 [place] [id number] [place] [address] 30521- 1881 Jan, Hypothyroidism, unspecified E03.9 [place] [id number] [place] [address] 28477- 7353 Dec, Hypothyroidism, unspecified E03.9 [place] [id number] [place] [address] 28952- 1727 Dec, Hypothyroidism E03.9 [place] [id number] [place] [address] 32689- 7194 Nov, Laceration of left great toe w/o foreign body w/o damage to nail, initial encounter S91.112A [facility] [place] [id number] [place] [address] 09694 -4988 Oct, Pain in left knee M25.562 and Arthritis M19.90 [place] [id number] [place] [address] 88361- 2752 Oct, Hypothyroidism, unspecified E03.9 and Hyperlipidemia, unspecified hyperlipidemia type E78.[address] 46693- 8070 Oct, Gastroesophageal reflux disease without esophagitis K21.9 [place] [address] 46238- 5310 14 Oct, 2016 Metabolic syndrome E88.81 ; Personal history of pulmonary embolism Z86.711 ; Other specified hypothyroidism E03.8 and Hyperlipidemia, unspecified hyperlipidemia type E78.[address] 81158- 9583 13 Oct, 2016 Personal history of pulmonary embolism Z86.711 ; Dysuria R30.0 ; Metabolic syndrome E88.81 ; Other specified hypothyroidism E03.8 ; Hyperlipidemia, unspecified hyperlipidemia type E78.5 and Morbid obesity with BMI of 50.0-59.9, adult Z68.43 [place] [id number] [place] [address] 56471- 4039 September, [facility] WALK IN [place] [address] 27677 -6564 September, Wrist pain, left M25.532 and Acute pain of left knee M25.562 [place] [address] [id number] [place] [address] 57865- 8365 Jul, Dysuria R30.0 [place] [id number] [place] [address] 93204- 9825 30 Jul, 2016 Dysuria R30.[address] 55452- 2103 16 Jul, 2016 Left lower quadrant pain R10.32 [place] [address] 69048- 9984 14 Jul, 2016 [place] [address] 92401- 9472 Jul, Coronary artery disease I25.10 ; Family history of diabetes mellitus Z83.3 ; Morbid obesity with BMI of 50.0-59.9, adult Z68.43 ; Metabolic syndrome E88.81 ; Personal history of pulmonary embolism Z86.711 ; Gastroesophageal reflux disease without esophagitis K21.9 ; Hypothyroidism, unspecified E03.9 ; Hyperlipidemia, unspecified hyperlipidemia type E78.5 and Left lower quadrant pain R10.32 [facility] WALK IN [address] [address] -5748 09 Jul, 2016 [facility] WALK IN [address] 81687 -6840 08 Jul, 2016 Morbid obesity with BMI of 50.0-59.9, adult Z68.43 [facility] W[facility] IN [address] 26184 -2447 Jul, Generalized abdominal pain R10.84 [facility] W[facility] IN [address] 73287 -6360 Jun, Muscle strain of right upper back, initial encounter S29.012A [facility] WALK IN [address] 29384 -5358 May, Foreign body (FB) in soft tissue M79.5 [place] [address] 30523- 2229 Mar, Hypothyroidism, unspecified E03.9 and Arthritis M19.90 [place] [id number] [place] [address] 45413- 3462 13 Feb, 2016 Coronary artery disease I25.10 ; Morbid obesity with BMI of 50.0-59.9, adult Z68.43 ; Metabolic syndrome E88.81 ; Gastroesophageal reflux disease without esophagitis K21.9 ; Hypothyroidism, unspecified E03.9 ; Personal history of pulmonary embolism Z86.711 and Hyperlipidemia, unspecified hyperlipidemia type E78.5 [place] [address] 33433- 0633 10 Feb, 2016 [facility] IN [place] [id number] [place] [address] 59746 -0124 12 Jan, 2016 Acute right-sided thoracic back pain M54.6 [place] [address] 69593- 9577 Jan, Acute pain of left knee M25.562 [place] [address] 64814- 7628 Dec, Dysuria R30.0 ; Metabolic syndrome E88.81 ; Acute pain of left knee M25.562 ; Acute cystitis with hematuria N30.01 and Acute left eye pain H57.12 [place] [id number] [place] [address] 91797- 2755 16 Dec, 2015 [place] [address] [id number] [place] [address] 50553- 0045 Dec, [place] [id number] [place] [address] 19487- 1747 Dec, Hypothyroidism, unspecified E03.9 [place] [address] 04648- 1575 Dec, [place] [address] [id number] [place] [address] 36023- 7151 Nov, Peripheral edema R60.9 and Acute pain of left knee M25.562 [facility] IN [place] [address] 30932 -9795 September, [place] [address] [address] [id number] [place] [address] 28700- 3002 September, Metabolic syndrome E88.81 and Allergy, subsequent encounter T78.40XD [facility] [place] [id number] [place] [address] 39490 -0781 September, Muscle strain T14.[address] 32502- 6246 Aug, Chest pressure R07.89 ; Metabolic syndrome E88.81 ; Morbid obesity with BMI of 50.0-59.9, adult Z68.43 ; Esophageal reflux 530.81 and Shortness of breath R06.02 [place] [address] [id number] [place] [address] 59660- 7824 Aug, [address] 43004- 3037 Aug, [place] [address] 59132- 8792 Aug, Hypothyroidism, unspecified E03.[address] 54297- 0497 Aug, Routine health maintenance Z00.00 [facility] WALK IN [place] [id number] [place] [address] 01799 -5058 Aug, [address] 73797- 5713 Jul, Routine health maintenance Z00.00 ; Family history of diabetes mellitus Z83.3 ; Family history of cancer Z80.9 and Morbid obesity with BMI of 50.0-59.9, adult Z68.43 [facility] WALK IN [place] [id number] [place] [address] 34585 -2380 Jul, Allergic rhinitis J30.9 and Postnasal drip R09.[address] 83210- 4768 Jul, Influenza J11.1 [facility] [address], [place] [address]67 Jul, Dysuria R30.0 [facility] [address] [place] [address] 37049- 3973 Apr, [facility] [id number] [place] [address] 18472- 9504 Mar, Acute upper respiratory infection, unspecified J06.9 and Hypothyroidism E03.9 [facility] [id number] [place] [address] 57692- 4903 Mar, [facility] [id number] [place] [address] 78249- 9685 Feb, Coronary artery disease I25.10 [facility] [id number] [place] [address] 05639- 8897 Feb, Left foot pain M79.672 [facility] [address] [place] [address] 54200- 9224 Jan, UTI (urinary tract infection) 599.0 [facility] [address] [place] [address] 14729- 1016 Jan, Urinary tract infection, site not specified 599.0 [facility] [address] [place] [address] 08714- 7975 Jan, Urinary tract infection, site not specified 599.0 [facility] [address] [place] [address] 57763- 1204 Jan, [facility] [id number] [place] [address] 46195- 8023 Dec, Headache 784.0 [facility] [address] [place] [address] 90063- 9402 Dec, Urinary tract infection, site not specified 599.0 [facility] [address]- 5163 Dec, Urinary tract infection, site not specified 599.0 [facility] [id number] [place] [address] 357740- 7123 Dec, Urinary tract infection, site not specified 599.0 [facility] [address] [address] Nov, Unspecified sleep apnea 780.57 ; Encounter for long-term ( current) use of anticoagulants V58.61 ; Routine general medical examination at [facility] V70.0 and Arthritis of both knees 716.96 [facility] [address] [place] [id number] [place] [address] 71812- 2028 September, Cat bite of hand 882.0 and Rectal bleeding 569.3 [facility] [address], [place] [address]- 2008 Aug, [facility] [id number] [place] [address] 71637- 4929 Aug, [facility] [address], [place] [address]- 4717 Jul, [facility] [address] [place] [address] 85065- 8255 Jul, [facility] [address], [place] [address]- 5010 Jul, [facility] [address], [place] [address]- 7993 Jul, [facility] [address] [address]- 7501 Jul, [facility] [address] 4773 Jul, [facility] [address], [place] [address]- 6107 Jul, [facility] [address] [id number] [place] [address] [place] [address]- 0139 Jul, [facility] [place] [facility] [address] [id number] [place] [address]- 6154 May, [facility] [place] [facility] [address] [id number] [place] [address]- 4591 May, [facility] [place] [facility] [address] [id number] [place] [address]- 7828 May, [facility] [place] [facility] [address] [id number] [place] [address]- 9572 May, [facility] [place] [facility] [address] [id number] [place] [address]- 5676 May, [facility] [place] [facility] [address] [id number] [place] [address]- 5182 May, [facility] [place] [facility] [address] [id number] [place] [address]- 7379 May, [facility] [place] [facility] [address] [id number] [place] [address]- 4166 Mar, [facility] [place] [facility] [address] [id number] [place] [address]- 3474 Mar, [facility] [place] [facility] [address] [id number] [place] [address]- 6447 08 Jan, 2013 [facility] [place] [facility] [address] [id number] [place] [address]- 8360 08 Sep, 2013 [facility] [place] [facility] [address] [id number], [place] [address]- 3680 08 Sep, 2013 [facility] [place] [facility] [address] [id number] [place] [address]- 5832 08 Sep, 2013 [facility] [place] [facility] [address] [id number] [place] [address]- 1034 05 Sep, 2013 [facility] [place] [facility] [address] [id number], [place] [address]- 5280 05 Sep, 2013 [facility] [place] [facility] [address] [id number] [place] [address]- 8960 Dec, [facility] [place] [facility] [address] [id number] [place] [address]- 6467 Dec, [facility] [place] [facility] [address] [id number] [place] [address]- 4066 Dec, [facility] [place] [facility] [address] [id number] [place] [address]- 9398 Dec, [facility] [place] [facility] [address] [id number] [place] [address]- 8135 Dec, [facility] [place] [facility] [address] [id number] [place] [address]- 9815 Dec, [facility] [place] [facility] [address] [id number] [place] [address]- 6686 Dec, [facility] [place] [facility] [address] [id number] [place] [address]- 9764 Dec, [facility] [place] [facility] [address] [id number] [place] [address]- 1982 Dec, [facility] [place] [facility] [address] [id number] [place] [address]- 4765 Dec, [facility] [place] [facility] [address] [id number] [place] [address]- 5089 Nov, [facility] [place] [facility] [address] [id number] [place] [address]- 2257 Nov, [facility] [place] [facility] [address] [id number] [place] [address]- 8986 September, [facility] [place] [facility] [address] [id number] [place] [address]- 1197 September, [facility] [place] [facility] [address] [id number] [place] [address]- 7987 September, [facility] [place] [facility] [address] [id number] [place] [address]- 4863 September, [facility] [place] [facility] [address] [id number] [place] [address]- 2551 Aug, [facility] [place] [facility] [address] [id number] [place] [address]- 6264 Aug, [facility] [place] [facility] [address] [id number] [place] [address]- 1932 Aug, [facility] [place] [facility] [address] [id number] [place] [address]- 8365 Aug, [facility] [place] [facility] [address] [id number] [place] [address]- 5566 Aug, [facility] [place] [facility] [address] [id number] [place] [address]- 5561 Aug, [facility] [place] [facility] [address] [id number] [place] [address]- 7431 Aug, [facility] [place] [facility] [address] [id number] [place] [address]- 8794 Aug, [facility] [place] [facility] [address] [id number] [place] [address]- 9567 Aug, [facility] [place] [facility] [address] [id number] [place] [address]- 1445 Aug, [facility] [place] [facility] [address] [id number] [place] [address]- 5575 Aug, [facility] [place] [facility] [address] [id number], [place] [address]- 7375 Aug, [facility] [place] [facility] [address] [id number] [place] [address]- 4064 Jul, [facility] [place] [facility] [address] [id number] [place] [address]- 4050 Jul, [facility] [place] [facility] [address] [id number] [place] [address]- 0351 Jul, [facility] [place] [facility] [address] [id number] [place] [address]- 3720 Jul, [facility] [place] [facility] [address] [id number] [place] [address]- 1183 Jul, [facility] [place] [facility] [address] [id number] [place] 1017 Jul, [facility] [place] [facility] [address] [id number] [place] [address]- 6747 05 Jul, 2013 [facility] [place] [facility] [address] [id number] [place] [address]- 9699 05 Jul, 2013 [facility] [place] [facility] [address] [id number] [place] [address]- 4473 Jul, [facility] [place] [facility] [address] [facility] [id number] [place] [address]- 6198 Jul, [facility] [place] [facility] [address] [facility] [id number] [place] [address]- 4172 28 Jun, 2013 [facility] [place] [facility] [address] [facility] [id number] [place] [address]- 3549 28 Jun, 2013 [facility] [place] [facility] [address] [facility] [id number] [place] [address]- 8774 17 Jun, 2013 [facility] [place] [facility] [address] [facility] [id number] [place] [address]- 5397 17 Jun, 2013 [facility] [place] [facility] [address] [facility] [id number] [place] [address]- 3889 13 Jun, 2013 [facility] [place] [facility] [address] [facility] [id number] [place] [address]- 8498 13 Jun, 2013 [facility] [place] [facility] [address] [id number] [place] [address] 13 Jun, 2013 [facility] [place] [facility] [address] [id number] [place] [address] 13 Jun, 2013 [facility] [place] [facility] [address] [id number] [place] [address] Jun, [facility] [place] [facility] [address] [id number] [place] [address] Jun, [facility] [place] [facility] [address] [id number] [place] [address] Jun, [facility] [place] [facility] [address] [id number] [place] [address] Jun, [facility] [place] [facility] [address] [id number] [place] [address] May, [facility] [place] [facility] [address] [id number] [place] [address] May, [facility] [place] [facility] [address] [id number] [place] [address] May, [facility] [place] [facility] [address] [id number] [place] [address] May, [facility] [place] [facility] [address] [id number] [place] [address] May, [facility] [place] [facility] [address] [id number], [place] [address] May, [facility] [place] [facility] [address] [id number] [place] [address] May, [facility] [place] [facility] [address] [id number], [place] [address] May, [facility] [place] [facility] [address] [id number], [place] [address] May, [facility] [place] [facility] [address] [id number], [place] [address] May, [facility] [place] [facility] [address] [id number], [place] [address] May, [facility] [place] [facility] [address] [id number] [place] [address] May, [facility] [place] [facility] [address] [id number] [place] [address] May, [facility] [address] [id number] [place] [address] May, [facility] [address] [id number] [place] [address] May, [facility] [address] [id number] [place] [address] Apr, [facility] [address] [id number] [place] [address] Apr, [facility] [address] [id number] [place] [address] Apr, [facility] [address] [id number] [place] [address] Apr, [facility] [address] [id number] [place] [address] Mar, [facility] [address] [id number] [place] [address] Mar, [facility] [address] [id number] [place] [address] Mar, [facility] [address] [id number] [place] [address] Mar, [facility] [address] [id number] [place] [address] Mar, [facility] [address] [id number] [place] [address]- 1469 Mar, [facility] [place] [facility] [address] [id number] [place] [address] Mar, [facility] [address] [id number] [place] [address] Mar, [facility] [address] [id number] [place] [address] Mar, [facility] [place] [facility] [address] [id number] [place] [address]- [address] Mar, [facility] [place] [facility] [address] [id number] [place] [address] Mar, [facility] [place] [facility] [address] [id number] [place] [address] Mar, [facility] [place] [facility] [address] [id number] [place] [address] Feb, [facility] [place] [facility] [address] [id number] [place] [address] 18 Jan, 2013 [facility] [facility] [address] [id number] [place] [address] 17 Jan, 2013 [facility] [place] [facility] [address] [id number] [place] [address] 06 Jan, 2013 [facility] [place] [facility] [address] [id number] [place] [address] Jan, [facility] [place] [facility] [address] [id number] [place] [address] Jan, [facility] [place] [facility] [address] [id number] [place] [address] Dec, [facility] [place] [facility] [address] [id number] [place] [address] Dec, [facility] [place] [facility] [address] [id number] [place] [address] Dec, [facility] [place] [facility] [address] [id number] [place] [address] 16 Dec, 2012 [facility] [place] [facility] [address] [id number] [place] [address] Dec, [facility] [place] [facility] [address] [id number] [place] [address] Dec, [facility] [place] [facility] [address] [id number] [place] [address] Dec, [facility] [place] [facility] [address] [id number] [place] [address] Dec, [facility] [place] [facility] [address] [id number] [place] [address] Nov, [facility] [place] [facility] [address] [id number] [place] [address] 3657 Nov, [facility] [place] [facility] [address] [id number] [place] [address] Nov, [facility] [place] [facility] [address] [id number] [place] [address]500 Nov, [facility] [address] [facility] [id number] [place] [address] Nov, [facility] [place] [facility] [address] [facility] [id number], [place] [address] Nov, [facility] [facility] [address] [facility] [id number], [place] [address] Oct, [facility] [address] [id number] [id number] Oct, [facility] [address] [facility] [id number] [id number] Oct, [facility] [address] [id number] [id number] Oct, [facility] [address] [facility] [id number] [id number] Oct, [facility] [address] [id number], [place] [address] Oct, [facility] [address] [facility] [id number] [place] [address] Oct, [facility] [address] [id number], [place] [address] Oct, [facility] [address] [facility] [id number] [place] [address] 1001 Oct, [facility] [address] [id number] [place] [address] Oct, [facility] [facility] [address] [id number] [place] [address] 9098 Oct, [facility] [facility] [address] [id number] [place] [address] September, [facility] [facility] [address] [id number] [place] [address] 74[address] Aug, [facility] [address] [id number] [place] [address] 2604 Aug, [facility] [address] [id number] [place] [address] 4[address] Aug, [facility] [address] [id number] [place] [address] 2613 Aug, [facility] [facility] [address] [id number] [place] [address] 1525 Jul, [facility] [address] [id number] [place] [address] 477[address] Jul, [facility] [facility] [address] [id number] [place] [address] 7904 Jul, [facility] [address] [id number], [place] [address] Jul, [facility] [address] [id number], [place] [address] Jul, [facility] [address] [id number] [place] [address] 1269 Jun, [facility] [address] [id number] [place] [address]357 Jun, [facility] [address] [id number] [place] [address] Jun, [facility] [address] [id number] [place] [address]284 31 May, 2012 [facility] [address] [id number] [place] [address] 24 May, 2012 [facility] [address] [id number] [place] [address] 14 May, 2012 [facility] [address] [id number] [place] [address] May, [facility] [address] [id number] [place] [address] May, [facility] [address] [id number] [place] [address] May, [facility] [address] [id number] [place] [address]37 18 Apr, 2012 [facility] [address] [id number] [place] [address]14 18 Apr, 2012 [facility] [address] [id number] [place] [address] 13 Apr, 2012 [facility] [address] [id number] [place] [address]51 Apr, [facility] [address] [id number] [place] [address] 6439 13 Apr, 2012 [facility] [address] [id number] [place] [address] 2479 Apr, [facility] [address] [id number] [place] [address]236 Apr, [facility] [address] [id number] [place] [address] 9219 Mar, [facility] [address] [id number] [place] [address] 6957 Mar, [facility] [address] [id number] [place] [address] Mar, [facility] [address] [id number], [place] [address] Mar, [facility] [id number], [place] [address] Jan, [facility] [id number], [place] [address] Jan, [facility] [id number], [place] [address] Jan, [facility] [id number], [place] [address] Jan, [facility] [id number] [place] [id number] Dec, [facility] [id number], [place] [address] Dec, [facility] [id number] [id number] Dec, [facility] [id number], [place] [address] Dec, [facility] [id number], [place] [address] Dec, [facility] [id number], [place] [address] 3216 Dec, [facility] [id number], [place] [address] 2456 Nov, [facility] [address] [id number], [place] [address] Nov, [facility] [address] [id number], [place] [address] Nov, IMMUNIZATIONS No Known Immunizations SOCIAL HISTORY Never Assessed REASON FOR VISIT Medication question PLAN OF CARE VITAL SIGNS MEDICATIONS Unknown [...]
--- OUTSIDE RECORDS SUMMARY | 2018-07-26 22:39 | XMS REPORT | Continuity of Care Document ---
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 OF PULMONARY EMBOLISM 08/20/2017 PAYAL VIGIL APRN Ot J98.11 ATELECTASIS 08/20/2017 PAYAL VIGIL APRN Ot Z87.442 PERSONAL HISTORY OF URINARY CALCULI 08/20/2017 MICHAEL WAGNER Ot I10 ESSENTIAL (PRIMARY) HYPERTENSION 08/20/2017 MICHAEL WAGNER Ot I25.10 ATHSCL HEART DISEASE OF [place] CORONARY 08/20/2017 MICHAEL WAGNER Ot R06.09 OTHER [...] APRN Ot I25.10 ATHSCL HEART DISEASE OF [place] CORONARY 08/20/2017 SHALOM RAMÍREZ APRN Ot I73.9 PERIPHERAL VASCULAR DISEASE, UNSPECIFIED 08/20/2017 SHALOM RAMÍREZ APRN Ot J44.9 CHRONIC OBSTRUCTIVE PULMONARY DISEASE, U 08/20/2017 SHALOM RAMÍREZ APRN Ot K21.9 GASTRO-ESOPHAGEAL REFLUX DISEASE WITHOUT 08/20/2017 SHALOM RAMÍREZ APRN Ot R07.2 PRECORDIAL PAIN 08/20/2017 SHALOM RAMÍREZ APRN Ot Z68.43 BODY MASS INDEX (BMI) 50-59.9 , ADULT 08/20/2017 SHALOM RAMÍREZ APRN Ot Z79.01 FDC (CURRENT) USE OF ANTICOAGULANT 08/20/2017 SHALOM RAMÍREZ APRN Ot Z79.02 MILL TENDER (CURRENT) USE OF ANTITHROMBOTI 08/20/2017 SHALOM RAMÍREZ APRN Ot Z79.51 MILL TENDER (CURRENT) USE OF INHALED STERO 08/20/2017 SHALOM RAMÍREZ APRN Ot Z79.82 [facility]DC (CURRENT) USE OF ASPIRIN 08/20/2017 SHALOM RAMÍREZ [...] ABSENCE OF OTHER ORGANS 08/20/2017 SHALOM RAMÍREZ SHOE REPAIRER Ot Z91.048 OTHER NONMEDICINAL SUBSTANCE ALLERGY STA 08/20/2017 SHALOM RAMÍREZ SHOE REPAIRER Ot Z97.5 PRESENCE OF (INTRAUTERINE) CONTRACEPTIVE 08/20/2017 [...] DO Ot 626.8 MENSTRUAL DISORDER NEC 08/20/2017 CAHS RODARTE DO Ot 627.1 POSTMENOPAUSAL BLEEDING 08/20/2017 [...] PAIN IN THORACIC SPINE 08/20/2017 KAVYA PATRICK SHOE REPAIRER Ot E66.01 MORBID (SEVERE) OBESITY DUE TO EXCESS CA 08/20/2017 KAVYA PATRICK SHOE REPAIRER Ot R10.84 GENERALIZED ABDOMINAL PAIN 08/20/2017 KAVYA PATRICK SHOE REPAIRER Ot Z68.43 BODY MASS INDEX (BMI) 50-59.9 [...] MON 08/20/2017 REAGAN MCNEILL MD, Ot Z79.01 MILL TENDER (CURRENT) USE OF ANTICOAGULANT 08/20/2017 REAGAN MCNEILL MD, Ot Z86.711 PERSONAL HISTORY OF PULMONARY EMBOLISM 08/20/2017 PAYAL VIGIL APRN Ot J98.11 ATELECTASIS 08/20/2017 PAYAL VIGIL APRN Ot Z87.442 PERSONAL HISTORY OF URINARY CALCULI 08/20/2017 MICHAEL WAGNER Ot I10 ESSENTIAL (PRIMARY) HYPERTENSION 08/20/2017 MICHAEL WAGNER Ot I25.10 ATHSCL HEART DISEASE OF [place] CORONARY 08/20/2017 MICHAEL WAGNER Ot R06.09 OTHER [...] Ot E03.9 HYPOTHYROIDISM, UNSPECIFIED 08/20/2017 TONY MOYA MIGDALIA D Ot Z86.010 PERSONAL HISTORY OF [...] MON 08/20/2017 REAGAN MCNEILL MD, Ot Z79.01 MILL TENDER (CURRENT) USE OF ANTICOAGULANT 08/20/2017 REAGAN MCNEILL MD, Ot Z86.711 PERSONAL HISTORY OF PULMONARY EMBOLISM 08/20/2017 PAYAL VIGIL APRN Ot J98.11 ATELECTASIS 08/20/2017 PAYAL VIGIL APRN Ot Z87.442 PERSONAL HISTORY OF URINARY CALCULI 08/20/2017 MICHAEL WAGNER Ot I10 ESSENTIAL (PRIMARY) HYPERTENSION 08/20/2017 MICHAEL WAGNER Ot I25.10 ATHSCL HEART DISEASE OF [place] CORONARY 08/20/2017 MICHAEL WAGNER Ot R06.09 OTHER FORMS OF DYSPNEA 08/20/2017 MICHAEL WAGNER Ot R07.89 OTHER CHEST PAIN 08/20/2017 REAGAN MCNEILL MD Ot E78.5 HYPERLIPIDEMIA, UNSPECIFIED 08/20/2017 REAGAN MCNEILL MD, Ot I10 ESSENTIAL (PRIMARY) HYPERTENSION 08/20/2017 REAGAN MCNEILL MD Ot I25.110 ATHSCL HEART DISEASE OF [place] COR ART W 08/20/2017 REAGAN MCNEILL MD [...] MOYA Ot 627.1 POSTMENOPAUSAL BLEEDING 08/21/2017 CAYDEN MYOA CHAS Amanda Ot V72.84 EXAM PRE-OPERATIVE NOS [...] PAIN IN THORACIC SPINE 08/21/2017 KAVYA PATRICK SHOE REPAIRER Ot E66.01 MORBID (SEVERE) OBESITY DUE TO EXCESS CA 08/21/2017 KAVYA PATRICK SHOE REPAIRER Ot R10.84 GENERALIZED ABDOMINAL PAIN 08/21/2017 KAVYA PATRICK APRN Ot Z68.43 BODY MASS INDEX (BMI) 50-59.9 , ADULT 08/21/2017 REAGAN MCNEILL MD, Ot Z51.81 ENCOUNTER FOR THERAPEUTIC DRUG LEVEL MON 08/21/2017 REAGAN MCNEILL MD, Ot Z79.01 MILL TENDER (CURRENT) USE OF ANTICOAGULANT 08/21/2017 REAGAN MCNEILL [...] WAGNER Ot I25.10 ATHSCL HEART DISEASE OF [place] CORONARY 08/21/2017 MICHAEL WAGNER Ot R06.09 OTHER FORMS OF DYSPNEA 08/21/2017 MICHAEL WAGNER Ot R07.89 OTHER CHEST PAIN 08/21/2017 REAGAN MCNEILL MD Ot E03.9 HYPOTHYROIDISM, UNSPECIFIED 08/21/2017 REAGAN MCNEILL MD Ot E66.9 OBESITY, UNSPECIFIED 08/21/2017 REAGAN MCNEILL MD Ot E78.5 HYPERLIPIDEMIA, UNSPECIFIED 08/21/2017 REAGAN MCNEILL MD Ot I10 ESSENTIAL (PRIMARY) HYPERTENSION 08/21/2017 REAGAN MCNEILL MD Ot I25.110 ATHSCL HEART DISEASE OF [place] COR ART W 08/21/2017 REAGAN MCNEILL MD Ot I77.1 STRICTURE OF ARTERY 08/21/2017 REAGAN MCNEILL MD Ot J45.909 UNSPECIFIED ASTHMA, UNCOMPLICATED 08/21/2017 REAGAN MCNEILL MD Ot Z68.43 BODY MASS INDEX (BMI) 50-59.9 , ADULT 08/21/2017 REAGAN MCNEILL MD Ot Z79.01 MILL TENDER (CURRENT) USE OF ANTICOAGULANT 08/21/2017 REAGAN MCNEILL [...] APRN Ot I25.10 ATHSCL HEART DISEASE OF [place] CORONARY 08/24/2017 SHALOM RAMÍREZ APRN Ot I73.9 PERIPHERAL VASCULAR DISEASE, UNSPECIFIED 08/24/2017 SHALOM RAMÍREZ APRN Ot J44.9 CHRONIC OBSTRUCTIVE PULMONARY DISEASE, U 08/24/2017 SHALOM RAMÍREZ APRN Ot K21.9 GASTRO-ESOPHAGEAL REFLUX DISEASE WITHOUT 08/24/2017 SHALOM RAMÍREZ APRN Ot R07.2 PRECORDIAL PAIN 08/24/2017 SHALOM RAMÍREZ APRN Ot Z68.43 BODY MASS INDEX (BMI) 50-59.9 , ADULT 08/24/2017 SHALOM RAMÍREZ APRN Ot Z79.01 MILL TENDER (CURRENT) USE OF ANTICOAGULANT 08/24/2017 SHALOM RAMÍREZ APRN Ot Z79.02 FDC (CURRENT) USE OF ANTITHROMBOTI 08/24/2017 SHALOM RAMÍREZ APRN Ot Z79.51 FDC (CURRENT) USE OF INHALED STERO 08/24/2017 SHALOM RAMÍREZ APRN Ot Z79.82 MILL TENDER (CURRENT) USE OF ASPIRIN 08/24/2017 SHALOM RAMÍREZ [...] MD Ot I25.110 ATHSCL HEART DISEASE OF [place] COR ART W 08/24/2017 REAGAN MCNEILL MD Ot I77.1 STRICTURE OF ARTERY 08/24/2017 REAGAN MCNEILL MD Ot J45.909 UNSPECIFIED ASTHMA, UNCOMPLICATED 08/24/2017 REAGAN MCNEILL MD Ot R82.90 UNSPECIFIED ABNORMAL FINDINGS IN URINE 08/24/2017 REAGAN MCNEILL MD Ot Z68.43 BODY MASS INDEX (BMI) 50-59.9 , ADULT 08/24/2017 REAGAN MCNEILL MD Ot Z79.01 MILL TENDER (CURRENT) USE OF ANTICOAGULANT 08/24/2017 REAGAN MCNEILL [...] MD Ot I25.110 ATHSCL HEART DISEASE OF [place] COR ART W 08/26/2017 REAGAN MCNEILL MD Ot I77.1 STRICTURE OF ARTERY 08/26/2017 REAGAN MCNEILL MD Ot J45.909 UNSPECIFIED ASTHMA, UNCOMPLICATED 08/26/2017 REAGAN MCNEILL MD Ot R82.90 UNSPECIFIED ABNORMAL FINDINGS IN URINE 08/26/2017 REAGAN MCNEILL MD Ot Z68.43 BODY MASS INDEX (BMI) 50-59.9 , ADULT 08/26/2017 REAGAN MCNEILL MD Ot Z79.01 MILL TENDER (CURRENT) USE OF ANTICOAGULANT 08/26/2017 REAGAN MCNEILL MD Ot Z86.711 PERSONAL HISTORY OF PULMONARY EMBOLISM 08/26/2017 REAGAN MCNEILL MD Ot Z86.718 PERSONAL HISTORY OF OTHER VENOUS THROMBO 08/28/2017 MICHAEL WAGNER Ot I10 ESSENTIAL (PRIMARY) HYPERTENSION 08/28/2017 MICHAEL WAGNER Ot I25.10 ATHSCL HEART DISEASE OF [place] CORONARY 08/28/2017 MICHAEL WAGNER Ot R06.09 OTHER FORMS OF DYSPNEA 08/28/2017 MICHAEL WAGNER Ot R07.89 OTHER CHEST PAIN 08/31/2017 REAGAN MCNEILL MD Ot E03.9 HYPOTHYROIDISM, UNSPECIFIED 08/31/2017 REAGAN MCNEILL MD Ot E66.9 OBESITY, UNSPECIFIED 08/31/2017 REAGAN MCNEILL MD Ot E78.5 HYPERLIPIDEMIA, UNSPECIFIED 08/31/2017 REAGAN MCNEILL MD, Ot I10 ESSENTIAL (PRIMARY) HYPERTENSION 08/31/2017 REAGAN MCNEILL MD Ot I25.110 ATHSCL HEART DISEASE OF [place] COR ART W 08/31/2017 REAGAN MCNEILL MD Ot I77.1 STRICTURE OF ARTERY 08/31/2017 REAGAN MCNEILL MD Ot J45.909 UNSPECIFIED ASTHMA, UNCOMPLICATED 08/31/2017 REAGAN MCNEILL MD Ot R82.90 UNSPECIFIED ABNORMAL FINDINGS IN URINE 08/31/2017 REAGAN MCNEILL MD Ot Z68.43 BODY MASS INDEX (BMI) 50-59.9 , ADULT 08/31/2017 REAGAN MCNEILL MD Ot Z79.01 FDC (CURRENT) USE OF ANTICOAGULANT 08/31/2017 REAGAN MCNEILL MD Ot Z86.711 PERSONAL HISTORY OF PULMONARY EMBOLISM 08/31/2017 REAGAN MCNEILL MD Ot Z86.718 PERSONAL HISTORY OF OTHER VENOUS THROMBO 09/04/2017 MICHAEL WAGNER Ot I10 ESSENTIAL (PRIMARY) HYPERTENSION 09/04/2017 MICHAEL WAGNER Ot I25.10 ATHSCL HEART DISEASE OF [place] CORONARY 09/04/2017 MICHAEL WAGNER Ot R06.09 OTHER [...] DOVIANNEY Ot I25.10 ATHSCL HEART DISEASE OF [place] CORONARY 09/05/2017 VIANNEY SMITH DO Ot I73.9 [...] ADULT 09/05/2017 VIANNEY SMITH DO Ot Z79.01 FDC (CURRENT) USE OF ANTICOAGULANT 09/05/2017 VIANNEY SMITH DO Ot Z79.02 MILL TENDER (CURRENT) USE OF ANTITHROMBOTI 09/05/2017 VIANNEY SMITH DO Ot Z79.82 FDC (CURRENT) USE OF ASPIRIN 09/05/2017 VIANNEY SMITH DO Ot Z79.899 OTHER MILL TENDER (CURRENT) DRUG THERAPY 09/05/2017 VIANNEY SMITH DO [...] SMITH DO Ot Z88.8 ALLERGY STATUS TO [facility] DRUG/MEDS/BIOL SUB 09/05/2017 VIANNEY SMITH DO Ot [...] DO Ot I25.10 ATHSCL HEART DISEASE OF [place] CORONARY 09/05/2017 VIANNEY SMITH DO Ot I73.9 PERIPHERAL VASCULAR DISEASE, UNSPECIFIED 09/05/2017 VIANNEY SMITH DO Ot J44.9 CHRONIC OBSTRUCTIVE PULMONARY DISEASE, U 09/05/2017 VIANNEY SMITH DO Ot J45.909 UNSPECIFIED ASTHMA, UNCOMPLICATED 09/05/2017 VIANNEY SMITH DO Ot K21.9 GASTRO-ESOPHAGEAL REFLUX DISEASE WITHOUT 09/05/2017 VIANNEY SMITH DO Ot N39.0 URINARY TRACT INFECTION, SITE NOT SPECIF 09/05/2017 LUIS VIANNEY MOYA Ot R07.89 OTHER CHEST PAIN 09/05/2017 VIANNEY SMITH DO Ot R60.0 LOCALIZED EDEMA 09/05/2017 VIANNEY SMITH DO Ot Z68.43 BODY MASS INDEX (BMI) 50-59.9 , ADULT 09/05/2017 VIANNEY SMITH DO Ot Z79.01 MILL TENDER (CURRENT) USE OF ANTICOAGULANT 09/05/2017 VIANNEY SMITH DO Ot Z79.02 MILL TENDER (CURRENT) USE OF ANTITHROMBOTI 09/05/2017 VIANNEY SMITH DO Ot Z79.82 MILL TENDER (CURRENT) USE OF ASPIRIN 09/05/2017 VIANNEY SMITH DO Ot Z79.899 OTHER [facility] (CURRENT) DRUG THERAPY 09/05/2017 VIANNEY SMITH DO [...] SMITH DO Ot Z88.8 ALLERGY STATUS TO [facility] DRUG/MEDS/BIOL SUB 09/05/2017 VIANNEY SMITH DO Ot Z91.048 OTHER NONMEDICINAL SUBSTANCE ALLERGY STA 09/05/2017 VIANNEY SMITH DO Ot Z95.5 PRESENCE OF CORONARY ANGIOPLASTY IMPLANT 09/27/2017 REAGAN MCNEILL MD Ot Z51.81 ENCOUNTER FOR THERAPEUTIC DRUG LEVEL MON 09/27/2017 REAGAN MCNEILL MD Ot Z79.01 MILL TENDER (CURRENT) USE OF ANTICOAGULANT 09/27/2017 REAGAN MCNEILL MD Ot Z86.711 PERSONAL HISTORY OF PULMONARY EMBOLISM 01/04/2018 REAGAN MCNEILL MD Ot E03.9 HYPOTHYROIDISM, UNSPECIFIED 01/04/2018 REAGAN MCNEILL MD Ot E66.9 OBESITY, UNSPECIFIED 01/04/2018 REAGAN MCNEILL MD Ot E78.5 HYPERLIPIDEMIA, UNSPECIFIED 01/04/2018 REAGAN MCNEILL MD Ot I10 ESSENTIAL (PRIMARY) HYPERTENSION 01/04/2018 REAGAN MCNEILL MD Ot I25.110 ATHSCL HEART DISEASE OF [place] COR ART W 01/04/2018 REAGAN MCNEILL MD Ot I77.1 STRICTURE OF ARTERY 01/04/2018 REAGAN MCNEILL MD, Ot J45.909 UNSPECIFIED ASTHMA, UNCOMPLICATED 01/04/2018 REAGAN MCNEILL MD Ot R82.90 UNSPECIFIED ABNORMAL FINDINGS IN URINE 01/04/2018 REAGAN MCNEILL MD Ot Z68.43 BODY MASS INDEX (BMI) 50-59.9 , ADULT 01/04/2018 REAGAN MCNEILL MD Ot Z79.01 MILL TENDER (CURRENT) USE OF ANTICOAGULANT 01/04/2018 REAGAN MCNEILL MD Ot Z86.711 PERSONAL HISTORY OF PULMONARY EMBOLISM 01/04/2018 REAGAN MCNEILL MD Ot Z86.718 PERSONAL HISTORY OF OTHER VENOUS THROMBO 04/16/2018 REAGAN MCNEILL MD Ot E03.9 HYPOTHYROIDISM, UNSPECIFIED 04/16/2018 REAGAN MCNEILL MD Ot E66.9 OBESITY, UNSPECIFIED 04/16/2018 REAGAN MCNEILL MD Ot E78.5 HYPERLIPIDEMIA, UNSPECIFIED 04/16/2018 REAGAN MCNEILL MD Ot I10 ESSENTIAL (PRIMARY) HYPERTENSION 04/16/2018 REAGAN MCNEILL MD Ot I25.110 ATHSCL HEART DISEASE OF [place] COR ART W 04/16/2018 REAGAN MCNEILL MD Ot I77.1 STRICTURE OF ARTERY 04/16/2018 REAGAN MCNEILL MD Ot J45.909 UNSPECIFIED ASTHMA, UNCOMPLICATED 04/16/2018 REAGAN MCNEILL MD Ot R82.90 UNSPECIFIED ABNORMAL FINDINGS IN URINE 04/16/2018 REAGAN MCNEILL MD Ot Z68.43 BODY MASS INDEX (BMI) 50-59.9 , ADULT 04/16/2018 REAGAN MCNEILL MD Ot Z79.01 MILL TENDER (CURRENT) USE OF ANTICOAGULANT 04/16/2018 REAGAN MCNEILL MD Ot Z86.711 PERSONAL HISTORY OF PULMONARY EMBOLISM 04/16/2018 REAGAN MCNEILL MD Ot Z86.718 PERSONAL HISTORY OF OTHER VENOUS THROMBO 07/09/2018 CHARLES FREED Ot 397.0 TRICUSPID VALVE DISEASE 07/09/2018 CHARLES FREED Ot 424.0 MITRAL VALVE DISORDER 07/09/2018 CHARLES FREED Ot 786.05 SHORTNESS OF BREATH 07/09/2018 CHARLES FREED Ot V58.61 ANTICOAGULANTS,LT,CURRENT USE 07/09/2018 CHARLES FREED Ot 486 PNEUMONIA, ORGANISM NOS 07/09/2018 MICHAEL WAGNER Ot 278.1 LOCALIZED ADIPOSITY 07/09/2018 MICHAEL WAGNER Ot 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 ATHEROSCLER NOS TYPE VESSEL, NATIV 07/09/2018 MICHAEL WAGNER Ot 496 CHR AIRWAY OBSTRUCT NEC 07/09/2018 MICHAEL WAGNER Ot 786.09 RESPIRATORY ABNORM NEC 07/09/2018 MICHAEL WAGNER Ot 786.50 CHEST PAIN NOS 07/09/2018 CHAS RODARTE DO Ot 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 07/09/2018 CHAS RODARTE DO Ot 625.9 FEM GENITAL SYMPTOMS NOS 07/09/2018 CHAS RODARTE DO Ot 626.8 MENSTRUAL DISORDER NEC 07/09/2018 CHAS RODARTE DO Ot 627.1 POSTMENOPAUSAL BLEEDING 07/09/2018 CHAS RODARTE DO Ot V72.84 EXAM PRE-OPERATIVE NOS 07/09/2018 CHAS RODARTE DO Ot V74.8 SCREEN-BACTERIAL DIS NEC 07/09/2018 CHAS RODARTE DO Ot 789.03 ABDOMINAL PAIN, RIGHT LOWER QUADRANT 07/09/2018 CHARLES FREED Ot 729.5 PAIN IN LIMB 07/09/2018 CATERINA SHAH DO Ot 278.1 LOCALIZED ADIPOSITY 07/09/2018 CATERINA SHAH DO Ot 493.90 ASTHMA, UNSPECIFIED 07/09/2018 ALYSSA DO, CATERINA M Ot 786.09 RESPIRATORY ABNORM NEC 07/09/2018 LITTLEJOHN BALDEV MOYA Ot 569.3 RECTAL ANAL HEMORRHAGE 07/09/2018 LITTLEJOHN DOBALDEV Ot V72.84 EXAM PRE-OPERATIVE NOS 07/09/2018 CAYDEN MOYACHAS Ot 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 07/09/2018 CAYDEN MOYACHAS Ot 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 ENDOMETRIAL HYPERPLASIA WITHOUT 07/09/2018 CHASTITYCHAS JOHNSON DO Ot V25.42 IUD SURVEILLANCE 07/09/2018 CAYDEN CHAS MOYA Ot R10.2 PELVIC AND PERINEAL PAIN 07/09/2018 [facility] PELVIC AND PERINEAL PAIN 07/09/2018 LITTLEJOHN DOBALDEV Ot R10.10 UPPER ABDOMINAL PAIN, UNSPECIFIED 07/09/2018 LITTLEJOHN BALDEV MOYA Ot Z01.818 ENCOUNTER FOR OTHER PREPROCEDURAL EXAMIN 07/09/2018 CAYDEN CHAS MOYA Ot D25.9 LEIOMYOMA OF UTERUS, UNSPECIFIED 07/09/2018 CAYDEN MOYACHAS Ot Z01.812 ENCOUNTER FOR PREPROCEDURAL LABORATORY E 07/09/2018 CAYDEN CHAS MOYA Ot Z11.2 ENCOUNTER FOR SCREENING FOR OTHER BACTER 07/09/2018 CHEN INFANTE SHOE REPAIRER Ot J06.9 ACUTE UPPER RESPIRATORY INFECTION, UNSPE 07/09/2018 MIGDALIA JIMENEZ DO Ot 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 07/09/2018 MIGDALIA JIMENEZ DO Ot E03.9 HYPOTHYROIDISM, UNSPECIFIED 07/09/2018 MIGDALIA JIMENEZ DO Ot Z86.010 PERSONAL HISTORY OF COLONIC POLYPS 07/09/2018 PAYAL VIGIL SHOE REPAIRER Ot M54.6 PAIN IN THORACIC SPINE 07/09/2018 KAVYA PATRICK SHOE REPAIRER Ot E66.01 MORBID (SEVERE) OBESITY DUE TO EXCESS CA 07/09/2018 KAVYA PATRICK SHOE REPAIRER Ot R10.84 GENERALIZED ABDOMINAL PAIN 07/09/2018 KAVYA PATRICK SHOE REPAIRER Ot Z68.43 BODY MASS INDEX (BMI) 50-59.9 , ADULT 07/09/2018 CHARITO NAM, REAGAN Balderas Ot Z51.81 ENCOUNTER FOR THERAPEUTIC DRUG LEVEL MON 07/09/2018 REAGAN MCNEILL MD, Ot Z79.01 MILL TENDER (CURRENT) USE OF ANTICOAGULANT 07/09/2018 REAGAN MCNEILL MD, Ot Z86.711 PERSONAL HISTORY OF PULMONARY EMBOLISM 07/09/2018 PAYAL VIGIL APRN Ot M54.2 CERVICALGIA 07/09/2018 PAYAL VIGIL APRN Ot Z53.29 PROC/TRTMT NOT CRD OUT BEC PT DECISION F 07/09/2018 PAYAL VIGIL APRN Ot J98.11 ATELECTASIS 07/09/2018 PAYAL VIGIL APRN Ot Z87.442 PERSONAL HISTORY OF URINARY CALCULI 07/09/2018 MICHAEL WAGNER Ot I10 ESSENTIAL (PRIMARY) HYPERTENSION 07/09/2018 MICHAEL WAGNER Ot I25.10 ATHSCL HEART DISEASE OF [place] CORONARY 07/09/2018 MICHAEL WAGNER Ot R06.09 OTHER FORMS OF DYSPNEA 07/09/2018 MICHAEL WAGNER Ot R07.89 OTHER CHEST PAIN 07/09/2018 REAGAN MCNEILL MD, Ot Z51.81 ENCOUNTER FOR THERAPEUTIC DRUG LEVEL MON 07/09/2018 REAGAN MCNEILL MD, Ot Z79.01 FDC (CURRENT) USE OF ANTICOAGULANT 07/09/2018 REAGAN MCNEILL MD, Ot Z86.711 PERSONAL HISTORY OF PULMONARY EMBOLISM Procedures Code Description Performed By Performed On 06.4 COMPLETE THYROIDECTOMY 09/11/2009 37.22 LEFT HEART CARDIAC CATH 03/17/2012 88.53 LT HEART ANGIOCARDIOGRAM 03/17/2012 88.56 CORONAR ARTERIOGR-2 CATH 03/17/2012 59225 XRAY CERVICAL SPINE, 2 OR 3 VIEWS 04/20/2012 53901 ROUTINE VENIPUNCTURE 04/22/2012 10507 INR (IN HOUSE) 04/22/2012 95988 TSH 04/23/2012 30162 OXIMETRY 04/27/2012 75825 MEASURE BLOOD OXYGEN LEVEL 05/16/2012 55492 ROUTINE VENIPUNCTURE 06/03/2012 07433 XRAY CHEST 2 VIEW 06/03/2012 55244 BNP 06/03/2012 99563 CBC 06/03/2012 25538 INR (IN HOUSE) 06/03/2012 10060 OXIMETRY 06/03/2012 26342 XRAY FOOT LEFT COMP MIN 3 VIEWS 06/17/2012 89229 SPIROMETRY 06/29/2012 94570 BRONCHODILATION PRE/POST 06/29/2012 26993 RESPIRATORY FLOW VOLUME LOOP 06/29/2012 87944 UA W/ CULTURE IF INDICATED 07/13/[address] ABDOMEN & PELVIS STONE SEARCH 07/28/2012 26515 UA W/ CULTURE IF INDICATED 07/28/2012 09817 STONE ANALYSIS 07/29/[address] HEAD/BRAIN W/O & W/DYE 07/30/2012 50291 XRAY ANKLE R COMP MIN, 3 VIEWS 09/02/2012 35509 XRAY FOOT RIGHT 2 VIEWS 09/02/[address] ANGIO, CHEST 10/18/2012 44248 INR (IN HOUSE) 10/28/2012 38910 US GUIDE FOR BIOPSY 12/16/2012 20943 US BREAST(S) ULTRASOUND, BOTH 12/24/2012 08463 INR (IN HOUSE) 01/12/2013 38833 UA W/ CULTURE IF INDICATED 01/12/2013 49698 CULTURE URINE 01/14/2013 92186 INR (IN HOUSE) 02/10/2013 60608 ROUTINE VENIPUNCTURE 03/15/2013 46022 XRAY FOOT RIGHT 2 VIEWS 03/15/2013 10460 TSH 03/15/2013 89658 INR (IN HOUSE) 03/15/2013 44248 XRAY CHEST 2 VIEW 03/23/[address] CHEST W/DYE 03/23/2013 94719 ECHO 2D 03/23/2013 45985 OXIMETRY 03/23/2013 16709 INR (IN HOUSE) 03/29/2013 25424 INR (IN HOUSE) 05/18/2013 84025 XRAY CHEST 2 VIEW 05/19/2013 64135 OXIMETRY 05/23/2013 29377 UA W/ CULTURE IF INDICATED 06/14/2013 62590 ROUTINE VENIPUNCTURE 06/23/2013 02861 INR (IN HOUSE) 06/23/2013 00278 LIPID PANEL 06/23/2013 67459 TSH 06/23/2013 71229 MRI EXTREMITY JOINT, LOWER RIGHT, W/O CONTRAST 07/14/2013 JAMARCUS ESQUIVEL 07/14/2013 60032 ROUTINE VENIPUNCTURE 08/15/2013 93293 INR (IN HOUSE) 08/15/2013 15731 TSH 08/15/2013 36503 INR (IN HOUSE) 09/02/2013 63473 CULTURE URINE 12/16/2013 05195 UA W/ CULTURE IF INDICATED 12/16/2013 21497 CULTURE URINE 12/19/2013 13264 ROUTINE VENIPUNCTURE 05/26/2014 54807 INR (IN HOUSE) 05/26/2014 65286 TSH 05/26/2014 41225 CBC 05/26/2014 07594 US VENOUS DOPPLER (DVT EVAL ) 08/07/2014 [id number] DILATE 1 COR ART, BIFURC, W DRUG-ELUT IN 08/19/2017 [id number] DILATION OF 1 COR ART WITH DRUG-ELUT INT 08/19/2017 [id number] MEASURE OF CARDIAC SAMPL PRESSURE, L H 08/19/2017 [id number] FLUOROSCOPY OF MULT COR ART USING L OSM 08/19/2017 [id number] FLUOROSCOPY OF LEFT HEART USING LOW OSMO [...] measurement (mass/volume) < ng/ mL <0.30 Thyroid [place] Profile - 04/01/16 09:57 TSH 2.930 uIU/mL [...] blood basophil count (count/volume) 0.0 10*3/uL 0.0-0.1 [id number] - 07/17/16 07:14 Serum or plasma urea [...] 11:16 Hemoglobin A1c 6.8 % 4.8-5.6 Thyroid [place] Profile - 10/22/16 11:16 TSH 7.960 uIU/mL [...] - 08/19/17 08:58 URINE CULTURE RESULTS <10,000/ML NR Methicillin resistant Staphylococcus aureus (MRSA) screening culture [...] culture - 09/04/17 23:34 Bacterial urine culture [id number] NRG COLONY COUNT >100,000/ML NRG FTX;REPORTABLE SENSITIVITY [...] susceptibility test by minimum inhibitory concentration - NRG Serum or plasma troponin i.cardiac measurement (mass/volume) [...] 09/05/17 07:17 BNP level < pg/mL <100.0 CBC - 09/10/17 13:35 WHITE BLOOD CELL COUNT 10.2 Thousand/uL 3.8-10.8 RED BLOOD CELL COUNT 4.73 Million/uL 3.80-5.10 HEMOGLOBIN 13.7 g/dL 11.7-15.5 HEMATOCRIT 42.6 % 35.0-45.0 MCV 90.1 fL 80.0-100.0 MCH 29.0 pg 27.0-33.0 MCHC 32.2 g/dL 32.0-36.0 RDW 13.9 % 11.0-15.0 PLATELET COUNT 224 Thousand/uL 140-400 MPV 10.3 fL 7.5-12.5 ABSOLUTE NEUTROPHILS 7681 cells/uL 1039-5991 ABSOLUTE LYMPHOCYTES 1632 cells/uL 850-3900 ABSOLUTE MONOCYTES 704 cells/uL 200-950 ABSOLUTE EOSINOPHILS 163 cells/uL 15-500 ABSOLUTE BASOPHILS 20 cells/uL 0-200 NEUTROPHILS 75.3 % NRG LYMPHOCYTES 16.0 % NRG MONOCYTES 6.9 % NRG EOSINOPHILS 1.6 % NRG BASOPHILS 0.2 % NRG TSH - 09/10/17 13:35 TSH 0.74 mIU/L 0.40-4.50 CULTURE, URINE - 01/02/18 02:22 CULTURE, URINE, ROUTINE SEE NOTE NRG Complete blood count (CBC) with automated white blood cell (WBC) differential - 07/09/18 15:03 Blood leukocytes automated count (number/volume) 7.8 10*3/uL 4.3-11.0 Blood erythrocytes automated count (number/volume) 4.42 10*6/uL 4.35-5.85 Venous blood hemoglobin measurement (mass/volume) 12.9 g/dL 11.5-16.0 Blood hematocrit (volume fraction) 41 % 35-52 Automated erythrocyte mean corpuscular volume 93 [foz_us] 80-99 Automated erythrocyte mean corpuscular hemoglobin (mass per erythrocyte) 29 pg 25-34 Automated erythrocyte mean corpuscular hemoglobin concentration measurement ( mass/volume) 31 g/dL 32-36 Automated erythrocyte distribution width ratio 15.5 % 10.0-14.5 Automated blood platelet count (count/volume) 225 10*3/uL 130-400 Automated blood platelet mean volume measurement 10.7 [foz_us] 7.4-10.4 Automated blood neutrophils/100 leukocytes 66 % 42-75 Automated blood lymphocytes/100 leukocytes 26 % 12-44 Blood monocytes/100 leukocytes 6 % 0-12 Automated blood eosinophils/100 leukocytes 1 % 0-10 Automated blood basophils/100 leukocytes 0 % 0-10 Blood neutrophils automated count (number/volume) 5.2 10*3 1.8-7.8 Blood lymphocytes automated count (number/volume) 2.1 10*3 1.0-4.0 Blood monocytes automated count (number/volume) 0.5 10*3 0.0-1.0 Automated eosinophil count 0.1 10*3/uL 0.0-0.3 Automated blood basophil count (count/volume) 0.0 10*3/uL 0.0-0.1 Fibrin D-dimer FEU measurement in platelet poor plasma (mass/volume) - 15:03 Fibrin D-dimer FEU measurement in platelet poor plasma (mass/volume) 0.30 ug/mL 0.00-0.49 Comprehensive metabolic panel - 07/09/18 15:03 Serum or plasma sodium measurement (moles/volume) 139 mmol/L 135-145 Serum or plasma potassium measurement (moles/volume) 3.8 mmol/L 3.6-5.0 Serum or plasma chloride measurement (moles/volume) 102 mmol/L 98-107 Carbon dioxide 26 mmol/L 21-32 Serum or plasma anion gap determination (moles/volume) 11 mmol/L 5-14 Serum or plasma urea nitrogen measurement (mass/volume) 11 mg/dL 7-18 Serum or plasma creatinine measurement (mass/volume) 0.82 mg/dL 0.60-1.30 Serum or plasma urea nitrogen/creatinine mass ratio 13 NRG Serum or plasma creatinine measurement with calculation of estimated glomerular filtration rate > NRG Serum or plasma glucose measurement (mass/volume) 210 mg/dL 70-105 Serum or plasma calcium measurement (mass/volume) 8.8 mg/dL 8.5-10.1 Serum or plasma total bilirubin measurement (mass/volume) 0.3 mg/dL 0.1-1.0 Serum or plasma alkaline phosphatase measurement (enzymatic activity/volume) 100 U/L 40-136 Serum or plasma aspartate aminotransferase measurement (enzymatic activity/ volume) 22 U/L 5-34 Serum or plasma alanine aminotransferase measurement (enzymatic activity/volume ) 14 U/L 0-55 Serum or plasma protein measurement (mass/volume) 7.3 g/dL 6.4-8.2 Serum or plasma albumin measurement (mass/volume) 3.9 g/dL 3.2-4.5 CALCIUM CORRECTED 8.9 mg/dL 8.5-10.1 Serum or plasma troponin i.cardiac measurement (mass/volume) - 07/09/18 15:03 Serum or plasma troponin i.cardiac measurement (mass/volume) < ng/ mL <0.028 Serum or plasma lithium measurement (moles/volume) - 07/09/18 15:03 BNP level 18.9 pg/mL <100.0 Complete urinalysis with reflex to culture - 07/09/18 18:00 Urine color determination YELLOW NRG Urine clarity determination CLEAR NRG Urine pH measurement by test strip 6 5-9 Specific gravity of urine by test strip 1.010 1.016- 1.022 Urine protein assay by test strip, semi-quantitative NEGATIVE NEGATIVE Urine glucose detection by automated test strip NEGATIVE NEGATIVE Erythrocytes detection in urine sediment by light microscopy 1+ NEGATIVE Urine ketones detection by automated test strip NEGATIVE NEGATIVE Urine nitrite detection by test strip NEGATIVE NEGATIVE Urine total bilirubin detection by test strip NEGATIVE NEGATIVE Urine urobilinogen measurement by automated test strip (mass/volume) NORMAL NORMAL Urine leukocyte esterase detection by dipstick 1+ NEGATIVE Automated urine sediment erythrocyte count by microscopy (number/high power field) RARE NRG Automated urine sediment leukocyte count by microscopy (number/high power field ) RARE NRG Bacteria detection in urine sediment by light microscopy TRACE NRG Squamous epithelial cells detection in urine sediment by light microscopy 0-2 NRG Crystals detection in urine sediment by light microscopy NONE NRG Casts detection in urine sediment by light microscopy NONE NRG Mucus detection in urine sediment by light microscopy NEGATIVE NRG Complete urinalysis with reflex to culture NO NRG Encounters ACCT No. Visit Date/Time Discharge Status Pt. Type Provider Facility Loc./Unit Complaint [id number] 08/07/2014 09:51:00 08/07/2014 23:59:59 [facility] Outpatient JOSE ALBERTO ARIZA DO [id number] 05/26/2014 11:37:00 05/26/2014 23:59:59 [facility] Outpatient JOSE ALBERTO ARIZA DO [id number] 01/16/2014 11:28:00 01/16/2014 23:59:59 [facility] Outpatient JOSE ALBERTO ARIZA DO [id number] 12/26/2013 12:31:00 12/26/2013 23:59:59 [facility] Outpatient ARIZA DOJOSE ALBERTO [id number] 12/19/2013 13:24:00 12/19/2013 23:59:59 [facility] Outpatient ARIZA DOJOSE ALBERTO [id number] 12/16/2013 13:58:00 12/16/2013 23:59:59 CLS Outpatient ARIZA DOJOSE ALBERTO [id number] 12/16/2013 13:58:00 12/16/2013 23:59:59 CLS Outpatient ARIZA DOJOSE ALBERTO [id number] 10/07/2013 14:22:00 10/07/2013 23:59:59 CLS Outpatient ARIZA DOJOSE ALBERTO [id number] 09/02/2013 10:22:00 09/02/2013 23:59:59 CLS Outpatient ARIZA DOJOSE ALBERTO Astrid [id number] 08/15/2013 14:48:00 08/15/2013 23:59:59 CLS Outpatient ARIZA DOCHRISTOPHERSantana Resendiz [id number] 07/14/2013 14:39:00 07/14/2013 23:59:59 CLS Outpatient CHERYL BIRMINGHAM APRN [id number] 07/08/2013 08:55:00 07/08/2013 23:59:59 CLS Outpatient ARIZA DOJOSE ALBERTO Astrid [id number] 06/23/2013 09:13:00 06/23/2013 23:59:59 CLS Outpatient CHARLES DOYLE PA-C [id number] 06/14/2013 15:59:00 06/14/2013 23:59:59 CLS Outpatient CHERYL BIRMINGHAM APRN [id number] 05/30/2013 12:08:00 05/30/2013 23:59:59 CLS Outpatient ARIZA DOJOSE ALBERTO Astrid [id number] 05/23/2013 10:34:00 05/23/2013 23:59:59 CLS Outpatient ARIZA DOCHRISTOPHERSantana Resendiz [id number] 05/23/2013 10:34:00 05/23/2013 23:59:59 CLS Outpatient ARIZA DOCHRISTOPHERSantana Resendiz [id number] 05/18/2013 17:42:00 05/18/2013 23:59:59 CLS Outpatient DONI PALAFOX APRN [id number] 04/18/2013 11:55:00 04/18/2013 23:59:59 CLS Outpatient ARIZA DOJOSE ALBERTO [id number] 03/29/2013 11:13:00 03/29/2013 23:59:59 CLS Outpatient ARIZA DOJOSE ALBERTO [id number] 03/22/2013 09:39:00 03/22/2013 23:59:59 CLS Outpatient ARIZA DOJOSE ALBERTO [id number] 03/22/2013 09:39:00 03/22/2013 23:59:59 CLS Outpatient ARIZA DOJOSE ALBERTO [id number] 03/15/2013 09:00:00 03/15/2013 23:59:59 CLS Outpatient ARIZA DOJOSE ALBERTO [id number] 03/15/2013 09:00:00 03/15/2013 23:59:59 CLS Outpatient ARIZA DOJOSE ALBERTO [id number] 02/10/2013 08:00:00 02/10/2013 23:59:59 CLS Outpatient ARIZA DOJOSE ALBERTO [id number] 07/28/2012 14:05:00 07/28/2012 23:59:59 CLS Outpatient ARIZA DOJOSE ALBERTO [id number] 07/13/2012 10:49:00 07/13/2012 23:59:59 CLS Outpatient ARIZA DOJOSE ALBERTO [id number] 06/29/2012 07:51:00 06/29/2012 23:59:59 CLS Outpatient CHARLES DOYLE PA-C [id number] 06/10/2012 10:44:00 06/10/2012 23:59:59 CLS Outpatient [id number] 06/03/2012 09:27:00 06/03/2012 23:59:59 CLS Outpatient ARIZA DOJOSE ALBERTO [id number] 05/14/2012 15:57:00 05/14/2012 23:59:59 CLS Outpatient ARIZA DOJOSE ALBERTO [id number] 04/27/2012 08:04:00 04/27/2012 23:59:59 CLS Outpatient [id number] 04/22/2012 09:50:00 04/22/2012 23:59:59 CLS Outpatient [id number] 04/20/2012 16:19:00 04/20/2012 23:59:59 CLS Outpatient [id number] 02/05/2012 08:28:00 02/05/2012 23:59:59 CLS Outpatient MORIS LOYOLA MD [id number] 01/12/2013 09:13:00 Document Registration [id number] 12/16/2012 09:21:00 Document Registration [id number] 12/16/2012 09:21:00 Document Registration [id number] 10/28/2012 12:34:00 Document Registration [id number] 09/10/2012 16:36:00 Document Registration [id number] 08/31/2012 10:19:00 Document Registration [id number] 08/31/2012 10:19:00 Document Registration [id number] 10/23/2016 15:09:00 Document Registration [id number] 07/19/2018 08:29:00 07/19/2018 23:59:59 CLS Preadmit NEVA HU SHOE REPAIRER [facility] RAD RECURRENT SYNCOPE [id number] 07/09/2018 14:14:00 07/09/2018 18:30:00 DIS Emergency RAJWINDER NAM, DEWEY S [facility] ER DIZZY, LIGHT HEADED [id number] 09/28/2017 00:11:00 09/28/2017 23:59:59 CLS Preadmit REAGAN MCNEILL MD [facility] LAB Z51.81 Z86.711 [id number] 09/26/2017 09:48:00 09/27/2017 00:01:00 DIS Outpatient REAGAN MCNEILL MD [facility] LAB Z51.81 Z86.711 [id number] 09/04/2017 22:53:00 09/05/2017 15:17:00 DIS Inpatient LUIS MOYA VIANNEY E [facility] 4TH CHEST PAIN [id number] 08/20/2017 12:34:00 08/20/2017 13:57:00 DIS Emergency SHALOM RAMÍREZ SHOE REPAIRER [facility] ER CP [id number] 08/19/2017 08:24:00 08/20/2017 09:55:00 DIS Outpatient REAGAN MCNEILL MD [facility] CATH ABN STRESS,CP,HTN [id number] 08/05/2017 10:36:00 08/05/2017 23:59:59 CLS Outpatient MICHAEL WAGNER [facility] CARD I25.10 CAD [id number] 07/13/2017 14:45:00 07/13/2017 23:59:59 CLS Preadmit MICHAEL WAGNER [facility] CARD I25.10 CAD [id number] 07/10/2017 12:47:00 07/10/2017 23:59:59 CLS Outpatient PAYAL VIGIL SHOE REPAIRER [facility] RAD N20.0 RENAL STONES [id number] 02/05/2017 12:52:00 02/05/2017 23:59:59 CLS Outpatient PAYAL VIGIL SHOE REPAIRER [facility] RAD M54.2 [id number] 01/20/2017 18:36:00 01/20/2017 23:32:00 DIS Emergency CHARLES LOPEZ MD [facility] ER SOB,DIZZINESS,NAUSEA [id number] 12/29/2016 00:14:00 12/29/2016 23:59:59 CLS Preadmit REAGAN MCNEILL MD [facility] LAB Z86.711 [id number] 12/28/2016 13:45:00 12/28/2016 15:30:00 DIS Emergency NORIS DOHERTY DO K [facility] ER HEADACHE [id number] 09/29/2016 14:31:00 12/28/2016 00:01:00 DIS Outpatient REAGAN MCNEILL MD [facility] LAB Z86.711 [id number] 09/04/2016 13:36:00 09/04/2016 16:13:00 DIS Emergency MIRIAM SPENCER EMPLOYMENT APPEALS EXAMINER [facility] ER FALL/ RIGHT KNEE INJ [id number] 07/17/2016 06:58:00 07/17/2016 23:59:59 CLS Outpatient KAVYA PATRICK SHOE REPAIRER [facility] RAD GENERALIZED ABD PAIN [id number] 02/16/2016 19:06:00 02/16/2016 22:12:00 DIS Emergency SHALOM RAMÍREZ SHOE REPAIRER [facility] ER CHEST PAIN [id number] 02/15/2016 12:58:00 02/15/2016 23:59:59 CLS Outpatient PAYAL VIGIL SHOE REPAIRER [facility] RAD ACUTE RT SIDED THORACIC PAIN [id number] 09/05/2015 07:05:00 09/06/2015 09:30:00 DIS Outpatient REAGAN MCNEILL MD [facility] CATH CAD,HTN HLP SYNCOPE [id number] 09/04/2015 14:08:00 09/04/2015 16:10:00 DIS Emergency SHALOM RAMÍREZ SHOE REPAIRER [facility] ER CHEST PAIN [id number] 06/21/2015 15:25:00 06/21/2015 19:18:00 DIS Emergency MICHELE COTTON [facility] ER SOA [id number] 05/23/2015 15:54:00 05/23/2015 23:59:59 CLS Outpatient MIGDALIA JIMENEZ DO [facility] LAB HYPOTHYROIDISM, DISORDER OF THE DIGESTIVE SYSTEM [id number] 05/14/2015 21:53:00 05/15/2015 00:14:00 DIS Emergency NORIS DOHERTY DO [facility] ER POST SURGICAL PAIN [id number] 04/21/2015 12:17:00 04/21/2015 15:18:00 DIS Emergency JESSICA NAM, CHARLES Shannon [facility] ER POST OP/BLOODY DRAINAGE [id number] 04/19/2015 06:00:00 04/20/2015 19:00:00 DIS Outpatient CHAS RODARTE DO S [facility] SDC CRONIC PELVIC PAIN [id number] 04/18/2015 10:51:00 04/18/2015 15:10:00 DIS Outpatient BALDEV LITTLEJOHN DO [facility] SDC ABDOMINAL PAIN [id number] 04/14/2015 10:47:00 04/14/2015 12:53:00 DIS Emergency RAJWINDER NAM, DEWEY Patel [facility] ER L LEG PAIN/WEAKNESS [id number] 04/12/2015 13:39:00 04/12/2015 23:59:59 CLS Outpatient CHEN INFANTE APRN [facility] LAB ACUTE UPPER RESPIRATORY INFECTION [id number] 04/12/2015 13:34:00 04/12/2015 23:59:59 CLS Outpatient CHAS RODARTE DO [facility] PREOP CRONIC PELVIC PAIN [id number] 04/12/2015 13:20:00 04/12/2015 23:59:59 CLS Outpatient BALDEV LITTLEJOHN DO [facility] PREOP ABD. PAIN [id number] 03/21/2015 14:46:00 03/21/2015 23:59:59 CLS Outpatient CHAS RODARTE DO [facility] RAD PELVIC PAIN [id number] 03/21/2015 10:49:00 03/21/2015 23:59:59 CLS Outpatient BALDEV LITTLEJOHN DO [facility] RAD SUPRAPUBIC ABD PAIN [id number] 01/17/2015 10:59:00 01/17/2015 23:59:59 CLS Outpatient CHAS RODARTE DO [facility] RAD IUD NOT FOUND ON SONO [id number] 01/12/2015 10:03:00 01/12/2015 12:10:00 DIS Emergency CELY VIGIL MD [facility] ER POSS BLOOD CLOT IN LUNG [id number] 01/08/2015 15:12:00 01/08/2015 23:59:59 CLS Outpatient CHAS RODARTE DO [facility] RAD FIBROID UTERUS [id number] 01/05/2015 15:46:00 01/05/2015 17:46:00 DIS Emergency SHALOM RAMÍREZ APRN [facility] ER POST COLONOSCOPY [id number] 01/02/2015 13:01:00 01/02/2015 15:55:00 DIS Outpatient BALDEV LITTLEJOHN DO [facility] SDC RECTAL BLEEDING [id number] 12/28/2014 05:53:00 12/28/2014 23:59:59 CLS Outpatient BALDEV LITTLEJOHN DO [facility] PREOP RECTAL BLEEDING [id number] 11/08/2014 14:02:00 11/08/2014 23:59:59 CLS Outpatient CATERINA SHAH DO [facility] RT DYSPNEA [id number] 11/08/2014 20:53:00 11/08/2014 22:18:00 DIS Emergency SHALOM RAMÍREZ APRN [facility] ER ABD PAIN [id number] 10/01/2014 12:06:00 10/01/2014 13:20:00 DIS Emergency MICHELE COTTON [facility] ER CAT BITE [id number] 09/29/2014 17:38:00 09/29/2014 20:24:00 DIS Emergency SHALOM RAMÍREZ APRN [facility] ER POSSIBLE INTERNAL BLEEDING [id number] 09/06/2014 15:19:00 09/06/2014 16:50:00 DIS Emergency MICHELE COTTON [facility] ER L FOOT/KNEE PAIN [id number] 08/08/2014 14:28:00 08/08/2014 23:59:59 CLS Outpatient CHARLES FREED [facility] RAD PAIN IN LIMB [id number] 06/23/2014 02:44:00 06/23/2014 04:43:00 DIS Emergency CHARLES LOPEZ MD [facility] ER ABD PAIN [id number] 06/21/2014 13:14:00 06/21/2014 16:31:00 DIS Emergency NORIS DOHERTY DO [facility] ER VAG BLEEDING [id number] 06/07/2014 19:12:00 06/07/2014 22:17:00 DIS Emergency NORIS DOHERTY DO [facility] ER LOWER R SIDE PAIN [id number] 05/26/2014 13:46:00 05/26/2014 23:59:59 CLS Outpatient CHAS RODARTE DO [facility] RAD RLQ ABD PAIN [id number] 04/21/2014 22:55:00 04/22/2014 01:35:00 DIS Emergency NORIS DOHERTY DO [facility] ER CP [id number] 02/02/2014 06:00:00 02/02/2014 11:25:00 DIS Outpatient CHAS RODARTE DO [facility] SDC PELVIC PAIN [id number] 01/25/2014 10:03:00 01/25/2014 23:59:59 CLS Outpatient CHAS RODARTE DO [facility] PREOP PELVIC PAIN [id number] 01/12/2014 22:23:00 01/13/2014 00:42:00 DIS Emergency NORIS DOHERTY DO [facility] ER CHEST PAIN [id number] 2013 14:06:00 2013 18:02:00 DIS Emergency MICHELE COTTON [facility] ER POSS UTI [id number] 12/05/2013 20:51:00 12/05/2013 22:14:00 DIS Emergency SHALOM RAMÍREZ APRN [facility] ER PAINFUL URINATION [id number] 11/26/2013 11:37:00 11/26/2013 12:18:00 DIS Emergency SHALOM RAMÍREZ APRN [facility] ER UTI [id number] 09/30/2013 19:00:00 10/01/2013 15:30:00 DIS Outpatient REAGAN MCNEILL MD [facility] CATH CHEST PAIN [id number] 09/12/2013 07:58:00 09/12/2013 23:59:59 CLS Outpatient MICHAEL WAGNER [facility] CARD CAD,CP,GERD, ROGERS [id number] 08/16/2013 11:45:00 08/17/2013 13:35:00 DIS Inpatient REAGAN MCNEILL MD [facility] CSD CHEST PAIN [id number] 07/15/2013 11:49:00 07/15/2013 12:17:00 DIS Emergency SHALOM RAMÍREZ SHOE REPAIRER [facility] ER RIGHT ANKLE PAIN [id number] 07/11/2013 14:43:00 07/11/2013 23:59:59 CLS Outpatient [id number] 06/10/2013 15:51:00 06/10/2013 23:59:59 CLS Outpatient [id number] 05/19/2013 13:11:00 05/19/2013 23:59:59 CLS Outpatient CHARLES FREED [facility] RAD DX PNEUMONIA [id number] 05/12/2013 21:14:00 05/12/2013 23:15:00 DIS Emergency CHARLES LOPEZ MD [facility] ER SOA [id number] 04/01/2013 12:54:00 04/01/2013 23:59:59 CLS Outpatient CHARLES FREED [facility] CARD SOB, ENLARGED MEDIASTINUM [id number] 02/27/2013 19:11:00 02/27/2013 21:12:00 DIS Emergency MICHELE COTTON [facility] ER NECK/HEAD/BACK PAIN [id number] 01/26/2013 16:39:00 01/26/2013 18:16:00 DIS Emergency CHARLES LOPEZ MD [facility] ER COMPLICATIONS FROM CONCUSSION [id number] 01/11/2013 22:33:00 01/12/2013 03:42:00 DIS Emergency CHARLES LOPEZ MD [facility] ER FELL, HEADACHE, DIZZINESS,NAUSEA [id number] 01/06/2013 09:51:00 01/06/2013 23:59:59 CLS Outpatient GARETT NAM, ACE Summers [facility] LAB FDC MED USE [id number] 01/06/2013 09:20:00 01/06/2013 23:59:59 CLS Outpatient CHARLES FREED [facility] RAD 1.3 CM MASS [id number] 12/24/2012 08:13:00 12/24/2012 23:59:59 CLS Outpatient CHARLES FREED [facility] RAD BREAST PAIN [id number] 11/28/2012 04:59:00 11/28/2012 07:08:00 DIS Emergency WERNER HERNANDEZ MD [facility] ER R SIDE FACIAL PAIN; NO INJ [id number] 11/26/2012 17:26:00 11/26/2012 23:59:59 CLS Outpatient [id number] 10/21/2012 14:42:00 10/21/2012 19:32:00 DIS Emergency CELY VIGIL MD [facility] ER GI BLEED [id number] 10/19/2012 03:00:00 10/19/2012 15:15:00 DIS Outpatient CHARITO NAM, REAGAN Balderas [facility] CATH CHEST PAIN [id number] 10/18/2012 10:23:00 10/18/2012 13:31:00 DIS Emergency JESSICA NAM, CHARLES Shannon [facility] ER CP [id number] 08/10/2015 18:15:00 Document Registration [id number] 04/22/2014 05:17:00 Document Registration [id number] 04/22/2014 05:17:00 Document Registration [id number] 04/22/2014 05:17:00 Document Registration [id number] 04/22/2014 05:17:00 Document Registration [id number] 04/22/2014 05:17:00 Document Registration [id number] 04/22/2014 05:17:00 Document Registration [id number] 08/17/2012 07:41:00 Document Registration [id number] 08/12/2012 12:16:00 Document Registration [id number] 08/08/2012 21:15:00 Document Registration [id number] 06/20/2012 11:44:00 Document Registration [id number] 05/17/2012 09:58:00 Document Registration [id number] 05/05/2012 07:31:00 Document Registration [id number] 04/20/2012 17:20:00 Document Registration [id number] 03/15/2012 15:15:00 Document Registration [id number] 02/03/2012 05:39:00 Document Registration [id number] 01/29/2012 12:58:00 Document Registration [id number] 01/19/2012 19:43:00 Document Registration [id number] 01/17/2012 15:24:00 Document Registration [id number] 12/31/2011 19:30:00 Document Registration [id number] 11/27/2011 09:08:00 Document Registration [id number] 10/29/2011 19:49:00 Document Registration [id number] 08/28/2011 05:48:00 Document Registration [id number] 08/21/2011 14:12:00 Document Registration [id number] 03/04/2011 13:31:00 Document Registration [id number] 10/08/2010 04:55:00 Document Registration [id number] 08/26/2010 20:58:00 Document Registration [id number] 08/15/2010 09:13:00 Document Registration [id number] 09/15/2009 21:29:00 Document Registration [id number] 09/07/2009 12:20:00 Document Registration [id number] 08/09/2016 03:07:00 Document Registration [id number] 04/02/2016 13:06:00 Document Registration [id number] 07/20/2018 13:25:00 07/20/2018 23:59:59 [id number] 01/01/2018 13:20:00 Document Registration [id number] 09/10/2017 13:00:00 Document Registration [id number] 06/29/2017 14:45:00 Document Registration [id number] 03/26/2017 13:00:00 Document Registration [id number] 01/05/2017 16:00:00 Document Registration [id number] 01/06/2017 08:06:00 Document Registration
[2018-07-26] MEDS ORDERED: HYDROcodone/APAP 5 MG/325 MG (LORTAB) TAB PO ONE (23:00)
[2018-07-26] MEDS ORDERED: HYDR-3812 PO (23:17)
[2018-07-27] MEDS ORDERED: PRAVASTATIN SODIUM 40 MG TAB (00:05)
--- NOTE | 2018-07-27 00:06 | ED Lower Extremity ---
General Chief Complaint: Lower Extremity Stated Complaint: RT FOOT INJ Nursing Triage Note: ""feels like the bone is sticking out of the side of my Right foot" Nursing Sepsis Screen: No Definite Risk History of Present Illness Date Seen by Provider: Jul 26, 2018 Time Seen by Provider: 23:31 Initial Comments 62-year-old female presenting with right foot pain for approximately 8 days. She was seen last week at [facility] and had an x-ray done and was told that there was no fracture. She continues to have pain and has an appointment on Thursday of this week. However the pain was bad enough tonight that she had taken a hydrocodone and still hurting so she came to the emergency department. She is using a walking boot and elevating her foot. She is also alternating ice and heat to the foot. She feels like there is a swollen area as her might be a piece of bone sticking out to the side of her foot. This is the area where she is having the most pain. The initial injury occurred when she had a plastic table for a computer that had fallen on her foot. Onset: last week Severity: severe Pain/Injury Location: right foot Method of Injury: direct blow Modifying Factors: Improves With Cold Therapy, Improves With Immobilization, Improves With Pain Medication Allergies and Home Medications Allergies Coded Allergies: methylprednisolone (Verified Allergy, Mild, 07/26/18) Penicillins (Unverified Allergy, Unknown, 07/26/18) atorvastatin (Verified Allergy, Unknown, 07/27/18) isosorbide (Verified Allergy, Unknown, 07/26/18) ketorolac (Verified Allergy, Unknown, ITCHING, 07/26/18) promethazine (Unverified Allergy, Unknown, hallucinations, 07/26/18) venom-honey bee (Unverified Allergy, Unknown, 07/26/18) Uncoded Allergies: TAPE (Allergy, Unknown, 08/16/13) Home Medications Acetaminophen 500 Mg Tablet, 500 MG PO BID PRN for PAIN-MILD, (Reported) Albuterol Sulfate 18 Gm Hfa.aer.ad, 1 PUFF INH Q4H PRN for SHORTNESS OF BREATH, (Reported) Albuterol Sulfate 2.5 Mg/3 Ml Vial.neb, 2.5 MG NEB Q4H PRN for SHORTNESS OF BREATH, (Reported) Aspirin 81 Mg Tablet.dr, 81 MG PO DAILY Prescribed by: REAGAN MCNEILL on 08/20/17 0800 Clopidogrel Bisulfate 75 Mg Tablet, 75 MG PO DAILY Prescribed by: REAGAN MCNEILL on 08/20/17 0800 Hydrocodone/Acetaminophen 1 Each Tablet, 1 TAB PO Q6H, (Reported) Levothyroxine Sodium 150 Mcg Tablet, 150 MCG PO HS, (Reported) Nitroglycerin 0.4 Mg Tab.subl, 0.4 MG SL PRN 1 TAB SUBLINGUAL Q5MIN. RETURN TO THE ER IF YOUR CHEST PAIN CONTINUES OR IS UNRESPLVED. Prescribed by: SHALOM RAMÍREZ on 08/20/17 1350 Omeprazole 20 Mg Capsule.dr, 20 MG PO DAILY, (Reported) LAST FILLED #30 04-15-17 Warfarin Sodium 5 Mg Tablet, 5 MG PO DAILY, (Reported) Patient Home Medication List Home Medication List Reviewed: Yes Review of Systems Constitutional: no symptoms reported EENTM: no symptoms reported Respiratory: no symptoms reported Cardiovascular: no symptoms reported Gastrointestinal: no symptoms reported Genitourinary: no symptoms reported Musculoskeletal: see HPI Skin: see HPI, other (redness and swelling to the right lateral foot) Past Nftaydm-Fycjfm-Qzienu Hx Past Med/Social Hx: Reviewed Nursing Past Med/Soc Hx Patient Social History Alcohol Use: Denies Use Recreational Drug Use: No Smoking Status: Never a Smoker 2nd Hand Smoke Exposure: No Recent Foreign Travel: No Contact w/Someone Who Travel: No Recent Infectious Disease Expo: No Recent Hopitalizations: No Physical Abuse: No Sexual Abuse: No Mistreated: No Fear: No Immunizations Up To Date Tetanus Booster (TDap): Less than 5yrs Date of Pneumonia Vaccine: Aug 17, 2012 Date of Influenza Vaccine: May 06, 2012 Seasonal Allergies Seasonal Allergies: No Past Medical History Surgeries: Yes ("neck" Coronary Stent x2) Appendectomy, Coronary Stent, Gallbladder, Hysterectomy Respiratory: Yes Asthma, Sleep Apnea Currently Using CPAP: No Currently Using BIPAP: No Cardiac: Yes ("heart Disease") Coronary Artery Disease, High Cholesterol Neurological: Yes (NEUROPATHY ARMS & FEET) Headaches /Migraines : No Reproductive Disorders: Yes (FIBROIDS, CHRONIC PELVIC PAIN ) [employer] History: Hysterectomy Sexually Transmitted Disease: No HIV/AIDS: No Genitourinary: No Kidney Stones Gastrointestinal: No Gastroesophageal Reflux Musculoskeletal: No Degenerate Disk Disease, Arthritis, Back Injury, Chronic Back Pain, Spasms Endocrine: No Hypothyroidsim Loss of Vision: Bilateral Hearing Impairment: Denies Cancer: No Colon Psychosocial: No Integumentary: No Blood Disorders: Yes (BLOOD CLOTS) Adverse Reaction/Blood Tranf: No Family Medical History Arthritis G8 SISTER Cardiovascular disease 03 FATHER Colon cancer 03 MOTHER Completed stroke 03 MOTHER Hypertension 03 MOTHER G8 BROTHER Myocardial infarction 03 MOTHER Thyroid disease G8 SISTER Physical Exam Vital Signs Vital Signs - First Documented 07/26/18 07/26/18 22:28 23:00 Temp 97.0 Pulse 78 Resp 18 B/P (MAP) 129/63 (85) Pulse Ox 98 O2 Delivery Room Air Capillary Refill : Less Than 3 Seconds Height, Weight, BMI Height: 5'2.00" Weight: 297lbs. 8.0oz. [id number]; 57.7 BMI Method:Stated General Appearance: WD/WN, no apparent distress Cardiovascular: normal peripheral pulses Feet: right foot pain, right foot soft tissue tenderness, right foot swelling, right foot other (mild swelling and erythema to the right lateral foot near The fifth MTP joint) Neurologic/Psychiatric: alert, normal mood/affect, oriented x 3 Progress/Results/Core Measures Results/Orders My Orders Orders - AMANDEEP HAMMOND MD Foot 3 View Right (07/26/18 22:54) Hydrocodone/Apap 5/325 Tablet (Lortab 5 (07/26/18 23:00) Medications Given in ED Current Medications Medications Dose Ordered Sig/Marcio Route Start Time Stop Time Status Last Admin Dose Admin Acetaminophen/ Hydrocodone Bitart 1 tab ONCE ONCE PO 07/26/18 23:00 07/26/18 23:01 DC 07/26/18 23:21 1 TAB Vital Signs/I&O 07/26/18 07/26/18 22:28 23:00 Temp 97.0 97.0 Pulse 78 78 Resp 18 B/P (MAP) 129/63 (85) 129/63 (85) Pulse Ox 98 96 O2 Delivery Room Air Blood Pressure Mean: 85 Progress Progress Note : Progress Note Reviewed x-rays with the patient and spouse. No definite fractures seen on my review of the 3 views of the right foot, and especially in the area where she is concerned about the swelling and pain. Counseled that she might need an MRI or bone scan to further evaluate why she still has pain. Also advised to use a walker and her boot to limit weightbearing. Counseled to keep the appointment on Thursday and discuss with her provider. Diagnostic Imaging Diagonstic Imaging: Xray Plain Films/CT/US/NM/MRI: other (right foot) Comments On my review of the three-view's right foot, there are no definite fractures or dislocations. Reviewed: Reviewed by Me Departure Impression Primary Impression: Right foot pain Additional Impressions: Swelling of right foot Sprain and strain of foot Disposition: HOME, SELF-CARE Condition: Stable Departure-Patient Inst. Decision time for Depature: 00:03 Referrals: JOSE ALBERTO ARIZA DO (PCP) Primary Care Physician PAYAL VIGIL APRN (Family) Primary Care Physician Patient Instructions: Contusion (DC), Muscle and Bone Pain (DC) Add. Discharge Instructions: Use walker with your boot to help limit your weight bearing on the right foot. Continue with ice and elevation of your right foot to help with pain and swelling. Check back with clinic as scheduled on Thursday as you may need an MRI or Bone scan to look for other reasons for why you are still having so much pain to your foot All discharge instructions reviewed with patient and/or family. Voiced understanding. AMANDEEP HAMMOND MD Jul 27, 2018 00:06
[2018-07-27 00:12] VITALS: BP 132/68
--- NOTE | 2018-07-27 06:33 | Diagnostic Imaging Report ---
INDICATION: Right foot injury COMPARISON: None. FINDINGS: 3 views of the right foot demonstrate no fracture, dislocation or osseous lesion. Calcaneal osteophytosis is present. Articular surfaces are age-appropriate. There is no foreign body. IMPRESSION: No fracture or dislocation. Dictated by: Dictated on workstation # [id number]
== END 2018-07-27 00:09 | disposition home or self-care (01) ==
LOC: EDUNIT# 21:51 → ER FS 21:53
DX: S96.911A Strain of unspecified muscle and tendon at ankle and foot level, right foot, initial encounter (principal); J45.909 Unspecified asthma, uncomplicated; I25.10 Atherosclerotic heart disease of native coronary artery without angina pectoris; E78.00 Pure hypercholesterolemia, unspecified; G43.909 Migraine, unspecified, not intractable, without status migrainosus; K21.9 Gastro-esophageal reflux disease without esophagitis; E03.9 Hypothyroidism, unspecified; Z87.442 Personal history of urinary calculi; Z88.0 Allergy status to penicillin; Z88.8 Allergy status to other drugs, medicaments and biological substances; Z88.6 Allergy status to analgesic agent; Z88.5 Allergy status to narcotic agent; Z91.030 Bee allergy status; Z79.82 Long term (current) use of aspirin; Z79.01 Long term (current) use of anticoagulants; Z90.49 Acquired absence of other specified parts of digestive tract; Z95.5 Presence of coronary angioplasty implant and graft; Z90.710 Acquired absence of both cervix and uterus; W22.8XXA Striking against or struck by other objects, initial encounter
CPT/HCPCS: 73630

== ENCOUNTER → 2018-08-11 | Outpatient (CLI) | payer MEDICARE, MEDICAID ==
[~2018-08-11] MED LIST changes: +HYDR-3812 PO; +PRAVASTATIN SODIUM 40 MG TAB
--- NOTE | 2018-08-11 09:26 | Diagnostic Imaging Report ---
PROCEDURE: CT head without contrast. TECHNIQUE: Multiple contiguous axial images were obtained through the brain without the use of intravenous contrast. Auto Exposure Controls were utilized during the CT exam to meet ALARA standards for radiation dose reduction. INDICATION: Recurrent syncope and dizziness. Correlation is made with prior head CT from 12/28/2016. Ventricles and sulci are stable in appearance. No sulcal effacement, midline shift or hemorrhage is detected. Cisterns are patent. Visualized paranasal sinuses are clear apart from opacification of right-sided posterior ethmoid air cells. IMPRESSION: No acute intracranial process is detected. Dictated by: Dictated on workstation # [id number]
== END ==
LOC: RAD 08:53
PROVIDERS: ATTEND Nurse Practitioner Family
DX: R55 Syncope and collapse (principal); R42 Dizziness and giddiness
CPT/HCPCS: 70450

== ENCOUNTER → 2018-09-09 | Outpatient (CLI) | payer MEDICARE, MEDICAID ==
[~2018-09-09] MED LIST changes: -RIVA20TA; +RIVA20TA2
--- NOTE | 2018-09-09 13:45 | Diagnostic Imaging Report ---
INDICATION: Pain status post injury COMPARISON: None. FINDINGS: 3 views of the right foot demonstrate no acute fracture or dislocation. There are no focal osseous lesions. There is no soft tissue swelling. Joint spaces are well maintained. No radiopaque foreign bodies are seen. IMPRESSION: No acute fractures or dislocations of the right foot. Dictated by: Dictated on workstation # [id number]
== END ==
LOC: RAD FS 13:30
PROVIDERS: ATTEND Nurse Practitioner
DX: M79.671 Pain in right foot (principal); Z87.828 Personal history of other (healed) physical injury and trauma
CPT/HCPCS: 73630

== ENCOUNTER 2018-10-05 14:34 | Emergency (ER) | payer MEDICARE, MEDICAID ==
[~2018-10-05] VITALS: Ht 157.5 cm; Wt 135.2 kg
--- NOTE | 2018-10-05 14:51 | ED Chest Pain ---
General Stated Complaint: CHEST PAIN Source: patient, RN notes reviewed, old records Exam Limitations: no limitations History of Present Illness Date Seen by Provider: October 05, 2018 Time Seen by Provider: 14:51 Allergies and Home Medications Allergies Coded Allergies: methylprednisolone (Verified Allergy, Mild, 07/26/18) Penicillins (Unverified Allergy, Unknown, 07/26/18) atorvastatin (Verified Allergy, Unknown, 07/27/18) isosorbide (Verified Allergy, Unknown, 07/26/18) ketorolac (Verified Allergy, Unknown, ITCHING, 07/26/18) promethazine (Unverified Allergy, Unknown, hallucinations, 07/26/18) venom-honey bee (Unverified Allergy, Unknown, 07/26/18) Uncoded Allergies: TAPE (Allergy, Unknown, 08/16/13) Home Medications Acetaminophen 500 Mg Tablet, 500 MG PO BID PRN for PAIN-MILD, (Reported) Albuterol Sulfate 18 Gm Hfa.aer.ad, 1 PUFF INH Q4H PRN for SHORTNESS OF BREATH, (Reported) Albuterol Sulfate 2.5 Mg/3 Ml Vial.neb, 2.5 MG NEB Q4H PRN for SHORTNESS OF BREATH, (Reported) Aspirin 81 Mg Tablet., 81 MG PO DAILY Prescribed by: REAGAN MCNEILL on 08/20/17 0800 Clopidogrel Bisulfate 75 Mg Tablet, 75 MG PO DAILY Prescribed by: REAGAN MCNEILL on 08/20/17 0800 Hydrocodone Bit/Acetaminophen 1 Ea Tablet, 1 EACH PO Q6H PRN for CHEST PAIN Prescribed by: ALEJANDRA MARTNI on 10/05/18 1849 Hydrocodone/Acetaminophen 1 Each Tablet, 1 TAB PO Q6H, (Reported) Levothyroxine Sodium 150 Mcg Tablet, 150 MCG PO HS, (Reported) Nitroglycerin 0.4 Mg Tab.subl, 0.4 MG SL PRN 1 TAB SUBLINGUAL Q5MIN. RETURN TO THE ER IF YOUR CHEST PAIN CONTINUES OR IS UNRESPLVED. Prescribed by: SHALOM RAMÍREZ on 08/20/17 1350 Omeprazole 20 Mg Capsule.dr, 20 MG PO DAILY, (Reported) LAST FILLED #30 04-15-17 Warfarin Sodium 5 Mg Tablet, 5 MG PO DAILY, (Reported) Past Zfinxvy-Eeeznj-Finwgf Hx Patient Social History 2nd Hand Smoke Exposure: No Recent Hopitalizations: No Immunizations Up To Date Tetanus Booster (TDap): Less than 5yrs Date of Pneumonia Vaccine: Aug 17, 2012 Date of Influenza Vaccine: May 06, 2012 Seasonal Allergies Seasonal Allergies: No Past Medical History Surgeries: Yes ("neck" Coronary Stent x2) Appendectomy, Coronary Stent, Gallbladder, Hysterectomy Respiratory: Yes Asthma, Sleep Apnea Currently Using CPAP: No Currently Using BIPAP: No Cardiac: Yes ("heart Disease") Coronary Artery Disease, High Cholesterol Neurological: Yes (NEUROPATHY ARMS & FEET) Headaches /Migraines Reproductive Disorders: Yes (FIBROIDS, CHRONIC PELVIC PAIN ) [employer] History: Hysterectomy Sexually Transmitted Disease: No HIV/AIDS: No Genitourinary: No Kidney Stones Gastrointestinal: No Gastroesophageal Reflux Musculoskeletal: No Degenerate Disk Disease, Arthritis, Back Injury, Chronic Back Pain, Spasms Endocrine: No Hypothyroidsim Loss of Vision: Bilateral Hearing Impairment: Denies Cancer: No Colon Psychosocial: No Integumentary: No Blood Disorders: Yes (BLOOD CLOTS) Adverse Reaction/Blood Tranf: No Family Medical History Arthritis G8 SISTER Cardiovascular disease 03 FATHER Colon cancer 03 MOTHER Completed stroke 03 MOTHER Hypertension 03 MOTHER G8 BROTHER Myocardial infarction 03 MOTHER Thyroid disease G8 SISTER Physical Exam Vital Signs Vital Signs - First Documented 10/05/18 14:45 Temp 97.5 Pulse 73 Resp 19 B/P (MAP) 125/71 (89) Pulse Ox 93 O2 Delivery Room Air Capillary Refill : Height, Weight, BMI Height: 5'2.00" Weight: 297lbs. 8.0oz. [id number]; 57.7 BMI Method:Stated Progress/Results/Core Measures Results/Orders Lab Results Laboratory Tests Test 10/05/18 14:50 10/05/18 16:52 Range/Units White Blood Count 7.9 4.3-11.0 10^3/uL Red Blood Count 4.70 4.35-5.85 10^6/uL Hemoglobin 13.6 11.5-16.0 G/DL Hematocrit 44 35-52 % Mean Corpuscular Volume 93 80-99 FL Mean Corpuscular Hemoglobin 29 25-34 PG Mean Corpuscular Hemoglobin Concent 31 L 32-36 G/DL Red Cell Distribution Width 14.8 H 10.0-14.5 % Platelet Count 208 130-400 10^3/uL Mean Platelet Volume 10.5 H 7.4-10.4 FL Neutrophils (%) (Auto) 74 42-75 % Lymphocytes (%) (Auto) 20 12-44 % Monocytes (%) (Auto) 4 0-12 % Eosinophils (%) (Auto) 1 0-10 % Basophils (%) (Auto) 0 0-10 % Neutrophils # (Auto) 5.9 1.8-7.8 X 10^3 Lymphocytes # (Auto) 1.6 1.0-4.0 X 10^3 Monocytes # (Auto) 0.3 0.0-1.0 X 10^3 Eosinophils # (Auto) 0.1 0.0-0.3 10^3/uL Basophils # (Auto) 0.0 0.0-0.1 10^3/uL Activated Partial Thromboplast Time 32 24-35 SEC D-Dimer 0.39 0.00-0.49 UG/ML Sodium Level 141 135-145 MMOL/L Potassium Level 3.7 3.6-5.0 MMOL/L Chloride Level 99 98-107 MMOL/L Carbon Dioxide Level 26 21-32 MMOL/L Anion Gap 16 H 5-14 MMOL/L Blood Urea Nitrogen 9 7-18 MG/DL Creatinine 0.83 0.60-1.30 MG/DL Estimat Glomerular Filtration Rate > 60 BUN/Creatinine Ratio 11 Glucose Level 265 H 70-105 MG/DL Calcium Level 8.7 8.5-10.1 MG/DL Corrected Calcium 8.5 8.5-10.1 MG/DL Magnesium Level 2.1 1.8-2.4 MG/DL Total Bilirubin 0.4 0.1-1.0 MG/DL Aspartate Amino Transf (AST/SGOT) 19 5-34 U/L Alanine Aminotransferase (ALT/SGPT) 16 0-55 U/L Alkaline Phosphatase 117 40-136 U/L Troponin T 9 8 <=10 NG/L Pro-B-Type Natriuretic Peptide 51.4 <75.0 PG/ML Total Protein 7.5 6.4-8.2 GM/DL Albumin 4.2 3.2-4.5 GM/DL Lipase 37 8-78 U/L Prothrombin Time 19.6 H 12.2-14.7 SEC INR Comment 1.6 H 0.8-1.4 My Orders Orders - ALEJANDRA MARTIN DO Cbc With Automated Diff (10/05/18 14:51) Magnesium (5/28/19 14:51) Chest 1 View Ap/Pa Only (10/05/18 14:51) Ekg Tracing (10/05/18 14:51) Comprehensive Metabolic Panel (10/05/18 14:51) Monitor-Rhythm Ecg Trace Only (10/05/18 14:51) Ed Iv/Invasive Line Start (10/05/18 14:51) Lipase (10/05/18 14:51) Troponin T (10/05/18 14:51) Probnp Fs (10/05/18 14:51) Troponin T (10/05/18 16:38) Morphine Injection (Morphine Injection (10/05/18 17:44) Ekg Tracing (10/05/18 18:10) Partial Thromboplastin Time (10/05/18 18:10) Fibrin Degradation Products (10/05/18 18:11) Protime With Inr (10/05/18 18:29) Morphine Injection (Morphine Injection (10/05/18 18:39) Vital Signs/I&O 10/05/18 14:45 Temp 97.5 Pulse 73 Resp 19 B/P (MAP) 125/71 (89) Pulse Ox 93 O2 Delivery Room Air Initial ECG Impression Date: October 05, 2018 Initial ECG Impression Time: 14:49 Initial ECG Rate: 72 Initial ECG Rhythm: Normal Sinus Initial ECG Impression: Normal Initial ECG Comparisson: No Previous ECG Available Departure Impression Primary Impression: Non-cardiac chest pain Disposition: 01 HOME, SELF-CARE Condition: Improved Departure-Patient Inst. Decision time for Depature: 19:05 Referrals: [facility] (PCP) Primary Care Physician NEVA HU APRN (Family) Primary Care Physician Patient Instructions: Chest Pain That Is Not Caused by the Heart (DC) Add. Discharge Instructions: TAKE YOUR WARFARIN SOON YOU GET HOME. Scripts Hydrocodone Bit/Acetaminophen (LORTAB 7.5 MG TABLET) 1 Ea Tablet 1 EACH PO Q6H PRN for CHEST PAIN, #14 TAB 0 Refills Prov: ALEJANDRA MARTIN DO 10/05/18 ALEJANDRA MARTIN DO October 05, 2018 14:51
[2018-10-05 15:05] LABS: HEMATOCRIT 44 % (35-52); HEMOGLOBIN 13.6 G/DL (11.5-16.0); MEAN CORPUSCULAR HEMOGLOBIN 29 PG (25-34); WHITE BLOOD COUNT 7.9 10^3/uL (4.3-11.0)
[2018-10-05 15:06] LABS: BASOPHILS % (AUTO) 0 % (0-10); EOSINOPHILS # (AUTO) 0.1 10^3/uL (0.0-0.3); EOSINOPHILS % (AUTO) 1 % (0-10); LYMPHOCYTES # (AUTO) 1.6 X 10^3 (1.0-4.0); LYMPHOCYTES % (AUTO) 20 % (12-44); MEAN CORPUSCULAR HGB CONC 31 G/DL (32-36); MEAN CORPUSCULAR VOLUME 93 FL (80-99); MEAN PLATELET VOLUME 10.5 FL (7.4-10.4); MONOCYTES # (AUTO) 0.3 X 10^3 (0.0-1.0); MONOCYTES % (AUTO) 4 % (0-12); NEUTROPHILS # (AUTO) 5.9 X 10^3 (1.8-7.8); NEUTROPHILS % (AUTO) 74 % (42-75); PLATELET COUNT 208 10^3/uL (130-400); RED CELL DISTRIBUTION WIDTH 14.8 % (10.0-14.5)
--- NOTE | 2018-10-05 15:13 | Diagnostic Imaging Report ---
INDICATION: Chest pain and shortness of breath. TIME OF EXAM: 2:43 p.m. Comparison is made with prior chest from 07/09/2018. FINDINGS: Heart size is stable. The lungs are clear. No infiltrates or evidence of congestive failure is seen. No effusion or pneumothorax. Postop changes of lower cervical spine are noted. IMPRESSION: No acute cardiopulmonary process is detected. Dictated by: Dictated on workstation # [id number]
[2018-10-05 15:26] LABS: POTASSIUM 3.7 MMOL/L (3.6-5.0); SODIUM 141 MMOL/L (135-145)
[2018-10-05 15:27] LABS: ALANINE AMINOTRANSFERASE 16 U/L (0-55); ALBUMIN 4.2 GM/DL (3.2-4.5); ALKALINE PHOSPHATASE 117 U/L (40-136); BILIRUBIN,TOTAL 0.4 MG/DL (0.1-1.0); BUN/CREATININE RATIO 11; CALCIUM 8.7 MG/DL (8.5-10.1); CARBON DIOXIDE 26 MMOL/L (21-32); CHLORIDE 99 MMOL/L (98-107); CREATININE SERUM 0.83 MG/DL (0.60-1.30); GFR ESTIMATED > 60; GLUCOSE 265 MG/DL (70-105); LIPASE 37 U/L (8-78); MAGNESIUM 2.1 MG/DL (1.8-2.4); TOTAL PROTEIN 7.5 GM/DL (6.4-8.2)
[2018-10-05] MEDS ORDERED: KETOROLAC 30 MG/ML VIAL IVP ONE (16:00)
[2018-10-05] MEDS ORDERED: morphine INJ 10 MG/ML 1ML (SYR OR VIAL) IVP STA ×2 (17:44→18:39)
[2018-10-05 18:26] LABS: FIBRIN DEGRADATION PRODUCTS 0.39 UG/ML (0.00-0.49)
[2018-10-05] MEDS ORDERED: HYDR-34 PO (18:49)
[2018-10-05 19:00] LABS: INR 1.6 (0.8-1.4); PROTHROMBIN TIME PATIENT 19.6 SEC (12.2-14.7)
[2018-10-05 19:15] VITALS: BP 120/62
== END 2018-10-05 19:15 | disposition home or self-care (01) ==
LOC: EDUNIT# 14:34 → ER FS 14:36
DX: R07.89 Other chest pain (principal); G47.30 Sleep apnea, unspecified; J45.909 Unspecified asthma, uncomplicated; I25.10 Atherosclerotic heart disease of native coronary artery without angina pectoris; E78.00 Pure hypercholesterolemia, unspecified; G62.9 Polyneuropathy, unspecified; G43.909 Migraine, unspecified, not intractable, without status migrainosus; K21.9 Gastro-esophageal reflux disease without esophagitis; E03.9 Hypothyroidism, unspecified; Z85.038 Personal history of other malignant neoplasm of large intestine; Z82.49 Family history of ischemic heart disease and other diseases of the circulatory system; Z80.0 Family history of malignant neoplasm of digestive organs; Z87.442 Personal history of urinary calculi; Z87.448 Personal history of other diseases of urinary system; Z79.52 Long term (current) use of systemic steroids; Z88.0 Allergy status to penicillin; Z88.7 Allergy status to serum and vaccine; Z88.8 Allergy status to other drugs, medicaments and biological substances; Z91.048 Other nonmedicinal substance allergy status; Z79.82 Long term (current) use of aspirin; Z79.01 Long term (current) use of anticoagulants; Z79.02 Long term (current) use of antithrombotics/antiplatelets; Z90.710 Acquired absence of both cervix and uterus; Z90.49 Acquired absence of other specified parts of digestive tract; Z95.5 Presence of coronary angioplasty implant and graft; Z98.890 Other specified postprocedural states
CPT/HCPCS: 36415; 71045; 80053; 83690; 83735; 83880; 84484; 85025; 85379; 85610; 85730; 93005; 93041; 96374; 96376

== ENCOUNTER 2018-11-05 17:38 | Emergency (ER) | payer MEDICARE, MEDICAID ==
[~2018-11-05] VITALS: Ht 157.5 cm; Wt 135.4 kg
[2018-11-05] MEDS ORDERED: NS IV 1000 ML 1,000 ML IV ONE (18:12)
--- NOTE | 2018-11-05 18:12 | ED GI ---
General Chief Complaint: Abdominal/GI Problems Stated Complaint: NAUSEA/RECTAL BLEEDING Source of Information: Patient History of Present Illness Date Seen by Provider: Nov 05, 2018 Time Seen by Provider: 17:58 Initial Comments PT ARRIVES VIA POV FROM HOME C/O "BELLY ACHE" AND "CAN'T KEEP ANYTHING DOWN" FOR 2 WEEKS STATES PAIN IN MID LOWER ABDOMEN/SUPRAPUBIC AREA, AND COMES AND GOES, AND OCCASIONALLY IS SHARP AND STABBING C/O NAUSEA AND VOMITING, BUT HAS NOT VOMITED TODAY NO DIARRHEA, AND LAST BM WAS JUST PRIOR TO ARRIVAL--NOTICED BLOOD IN STOOL AT THAT TIME ( WAS FIRST TIME SHE CHECKED ) PT STATES HER INR WAS HIGH YESTERDAY AT 4.6, SO SHE STARTED CHECKING HER STOOL NO FEVER NO URINARY SYMPTOMS AND VOIDING A NORMAL AMOUNT C/O HEADACHE HAS NOT TAKEN ANYTHING FOR SYMPTOMS Allergies and Home Medications Allergies Coded Allergies: methylprednisolone (Verified Allergy, Mild, 11/05/18) Penicillins (Unverified Allergy, Unknown, 11/05/18) atorvastatin (Verified Allergy, Unknown, 11/05/18) isosorbide (Verified Allergy, Unknown, 11/05/18) ketorolac (Verified Allergy, Unknown, ITCHING, 11/05/18) promethazine (Unverified Allergy, Unknown, hallucinations, 11/05/18) venom-honey bee (Unverified Allergy, Unknown, 11/05/18) Uncoded Allergies: TAPE (Allergy, Unknown, 08/16/13) Home Medications Acetaminophen 500 Mg Tablet, 500 MG PO BID PRN for PAIN-MILD, (Reported) Albuterol Sulfate 18 Gm Hfa.aer.ad, 1 PUFF INH Q4H PRN for SHORTNESS OF BREATH, (Reported) Albuterol Sulfate 2.5 Mg/3 Ml Vial.neb, 2.5 MG NEB Q4H PRN for SHORTNESS OF BREATH, (Reported) Aspirin 81 Mg Tablet.dr, 81 MG PO DAILY Prescribed by: REAGAN MCNEILL on 08/20/17 0800 Clopidogrel Bisulfate 75 Mg Tablet, 75 MG PO DAILY Prescribed by: REAGAN MCNEILL on 08/20/17 0800 Hydrocodone Bit/Acetaminophen 1 Ea Tablet, 1 EACH PO Q6H PRN for CHEST PAIN Prescribed by: ALEJANDRA MARTIN on 10/05/18 184 Hydrocodone/Acetaminophen 1 Each Tablet, 1 TAB PO Q6H, (Reported) Levothyroxine Sodium 150 Mcg Tablet, 150 MCG PO HS, (Reported) Nitroglycerin 0.4 Mg Tab.subl, 0.4 MG SL PRN 1 TAB SUBLINGUAL Q5MIN. RETURN TO THE ER IF YOUR CHEST PAIN CONTINUES OR IS UNRESPLVED. Prescribed by: SHALOM RAMÍREZ on 08/20/17 1350 Omeprazole 20 Mg Capsule.dr, 20 MG PO DAILY, (Reported) LAST FILLED #30 04-15-17 Warfarin Sodium 5 Mg Tablet, 5 MG PO DAILY, (Reported) Past Zsbcjhj-[id number]-Vuvtoj Hx Patient Social History Alcohol Use: Denies Use Recreational Drug Use: No 2nd Hand Smoke Exposure: No Recent Foreign Travel: No Contact w/Someone Who Travel: No Recent Hopitalizations: No Physical Abuse: No Sexual Abuse: No Mistreated: No Fear: No Immunizations Up To Date Tetanus Booster (TDap): Less than 5yrs Date of Pneumonia Vaccine: Aug 17, 2012 Date of Influenza Vaccine: May 06, 2012 Seasonal Allergies Seasonal Allergies: No Past Medical History Surgeries: Yes ("neck" Coronary Stent x2) Appendectomy, Coronary Stent, Gallbladder, Hysterectomy Respiratory: Yes Asthma, Sleep Apnea Currently Using CPAP: No Currently Using BIPAP: No Cardiac: Yes ("heart Disease") Coronary Artery Disease, High Cholesterol Neurological: Yes (NEUROPATHY ARMS & FEET) Headaches /Migraines Reproductive Disorders: Yes (FIBROIDS, CHRONIC PELVIC PAIN ) 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 Sexually Transmitted Disease: No HIV/AIDS: No Genitourinary: No Kidney Stones Gastrointestinal: No Gastroesophageal Reflux Musculoskeletal: No Degenerate Disk Disease, Arthritis, Back Injury, Chronic Back Pain, Spasms Endocrine: No Hypothyroidsim HEENT: Yes (wears glasses for reading) Loss of Vision: Bilateral Hearing Impairment: Denies Cancer: No Colon Psychosocial: No Integumentary: No Blood Disorders: Yes (BLOOD CLOTS) Adverse Reaction/Blood Tranf: No Family Medical History Arthritis G8 SISTER Cardiovascular disease 03 FATHER Colon cancer 03 MOTHER Completed stroke 03 MOTHER Hypertension 03 MOTHER G8 BROTHER Myocardial infarction 03 MOTHER Thyroid disease G8 SISTER Physical Exam Vital Signs Vital Signs - First Documented 11/05/18 18:00 Temp 98.3 Pulse 80 Resp 16 B/P (MAP) 121/90 (100) Pulse Ox 96 Capillary Refill : Height/Weight/BMI Height: 5'2.00" Weight: 298lbs. 8.0oz. 135.307119wl; 57.7 BMI Method:Stated Progress/Results/Core Measures Results/Orders Lab Results Laboratory Tests Test 11/05/18 18:13 11/05/18 18:18 Range/Units Urine Color IFEOMA H Urine Clarity SLIGHTLY CLOUDY Urine pH 5 5-9 Urine Specific [place] 1.020 1.016-1.022 Urine Protein 1+ H NEGATIVE Urine Glucose (UA) NEGATIVE NEGATIVE Urine Ketones 1+ H NEGATIVE Urine Nitrite NEGATIVE NEGATIVE Urine Bilirubin NEGATIVE NEGATIVE Urine Urobilinogen 1 NORMAL MG/DL Urine Leukocyte Esterase 3+ H NEGATIVE Urine RBC (Auto) 3+ H NEGATIVE Urine RBC RARE /HPF Urine WBC 25-50 H /HPF Urine Squamous Epithelial Cells 10-25 H /HPF Urine Crystals NONE /LPF Urine Bacteria MODERATE H /HPF Urine Casts NONE /LPF Urine Mucus SMALL H /LPF Urine Culture Indicated YES White Blood Count 8.9 4.3-11.0 10^3/uL Red Blood Count 4.84 4.35-5.85 10^6/uL Hemoglobin 13.9 11.5-16.0 G/DL Hematocrit 44 35-52 % Mean Corpuscular Volume 91 80-99 FL Mean Corpuscular Hemoglobin 29 25-34 PG Mean Corpuscular Hemoglobin Concent 32 32-36 G/DL Red Cell Distribution Width 15.2 H 10.0-14.5 % Platelet Count 248 130-400 10^3/uL Mean Platelet Volume 10.5 H 7.4-10.4 FL Neutrophils (%) (Auto) 76 H 42-75 % Lymphocytes (%) (Auto) 16 12-44 % Monocytes (%) (Auto) 7 0-12 % Eosinophils (%) (Auto) 1 0-10 % Basophils (%) (Auto) 0 0-10 % Neutrophils # (Auto) 6.8 1.8-7.8 X 10^3 Lymphocytes # (Auto) 1.4 1.0-4.0 X 10^3 Monocytes # (Auto) 0.6 0.0-1.0 X 10^3 Eosinophils # (Auto) 0.1 0.0-0.3 10^3/uL Basophils # (Auto) 0.0 0.0-0.1 10^3/uL Prothrombin Time 31.1 H 12.2-14.7 SEC INR Comment 2.8 H 0.8-1.4 Activated Partial Thromboplast Time 50 H 24-35 SEC Sodium Level 136 135-145 MMOL/L Potassium Level 4.2 3.6-5.0 MMOL/L Chloride Level 101 98-107 MMOL/L Carbon Dioxide Level 22 21-32 MMOL/L Anion Gap 13 5-14 MMOL/L Blood Urea Nitrogen 11 7-18 MG/DL Creatinine 0.95 0.60-1.30 MG/DL Estimat Glomerular Filtration Rate 60 BUN/Creatinine Ratio 12 Glucose Level 107 H 70-105 MG/DL Calcium Level 9.1 8.5-10.1 MG/DL Corrected Calcium 8.9 8.5-10.1 MG/DL Magnesium Level 2.2 1.8-2.4 MG/DL Total Bilirubin 0.4 0.1-1.0 MG/DL Aspartate Amino Transf (AST/SGOT) 22 5-34 U/L Alanine Aminotransferase (ALT/SGPT) 20 0-55 U/L Alkaline Phosphatase 120 40-136 U/L Total Protein 8.2 6.4-8.2 GM/DL Albumin 4.3 3.2-4.5 GM/DL Amylase Level 78 25-125 U/L Lipase 63 8-78 U/L My Orders Orders - NORIS DOHERYT DO Ed Iv/Invasive Line Start (11/05/18 18:01) Monitor-Rhythm Ecg Trace Only (11/05/18 18:01) Amylase (11/05/18 18:01) Cbc With Automated Diff (11/05/18 18:01) Comprehensive Metabolic Panel (11/05/18 18:01) Lipase (11/05/18 18:01) Magnesium (11/05/18 18:01) Protime With Inr (11/05/18 18:01) Partial Thromboplastin Time (11/05/18 18:01) Ua Culture If Indicated (11/05/18 18:01) Ed Iv/Invasive Line Start (11/05/18 18:01) Type And Screen (11/05/18 18:11) Ondansetron Injection (Zofran Injectio (11/05/18 18:15) Ed Iv/Invasive Line Start (11/05/18 18:12) Ns Iv 1000 Ml (Sodium Chloride 0.9%) (11/05/18 18:12) Pantoprazole Injection (Protonix Injecti (11/05/18 18:15) Urine Culture (11/05/18 18:13) Acute Abd Series (11/05/18 18:52) Iohexol Injection (Omnipaque 350 Mg/Ml 1 (11/05/18 19:00) Received Contrast (Hold Metformin- Contr (11/05/18 19:00) Sodium Chloride Flush (Catheter Flush Sy (11/05/18 19:00) Ns (Ivpb) (Sodium Chloride 0.9% Ivpb Bag (11/05/18 19:00) Ct Abdomen/Pelvis W (11/05/18 18:52) Ceftriaxone For Iv Use (Rocephin For I (11/05/18 20:00) Medications Given in ED Current Medications Medications Dose Ordered Sig/Marcio Route Start Time Stop Time Status Last Admin Dose Admin Iohexol 100 ml ONCE ONCE IV 11/05/18 19:00 11/05/18 19:01 DC 11/05/18 19:19 100 ML Ondansetron HCl 8 mg ONCE ONCE IVP 11/05/18 18:15 11/05/18 18:16 DC 11/05/18 18:22 8 MG Pantoprazole 40 mg ONCE ONCE IV 11/05/18 18:15 11/05/18 18:16 DC 11/05/18 18:22 40 MG Sodium Chloride 10 ml NEEDED PRN IV 11/05/18 19:00 11/05/18 19:19 10 ML Sodium Chloride 100 ml ONCE ONCE IV 11/05/18 19:00 11/05/18 19:01 DC 11/05/18 19:19 80 ML Sodium Chloride 1,000 ml @ 0 mls/hr Q0M ONCE IV 11/05/18 18:12 11/05/18 18:14 DC 11/05/18 18:26 1,000 MLS/HR Vital Signs/I&O 11/05/18 18:00 Temp 98.3 Pulse 80 Resp 16 B/P (MAP) 121/90 (100) Pulse Ox 96 Progress Progress Note : Progress Note NAUSEA RESOLVED AT DISMISSAL NO RECTAL BLEEDING DURING ER STAY Departure Impression Primary Impression: UTI (urinary tract infection) Additional Impressions: EPISODE OF REPORTED RECTAL BLEEDING ANTICOAGULATION THERAPY Nausea and vomiting Abdominal pain Disposition: 01 HOME, SELF-CARE Condition: Improved Departure-Patient Inst. Referrals: [facility] (PCP) Primary Care Physician NEVA HU APRN (Family) Primary Care Physician Patient Instructions: Acute Abdomen (Belly Pain), Adult (DC), Bloody Stools, Adult (DC), Nausea and Vomiting, Adult (DC), Urinary Tract Infection, Adult (DC) Add. Discharge Instructions: CLEAR LIQUIDS--WATER, BROTH, JELLO, GATORADE BRATS DIET--BANANAS, RICE, APPLESAUCE, TOAST, SALTINES HOLD YOUR COUMADIN TONIGHT AND TOMORROW PREVIOUSLY INSTRUCTED. FOLLOW UP WITH YOUR DR ON THURSDAY FOR FURTHER CARE RETURN TO ER IF WORSE All discharge instructions reviewed with patient and/or family. Voiced understanding. Scripts Nitrofurantoin Monohyd/M-Cryst (Macrobid 100 mg Capsule) 100 Mg Capsule 100 MG PO BID, #20 CAP Prov: NORIS DOHERTY DO 11/05/18 Ondansetron (Ondansetron Odt) 8 Mg Tab.rapdis 8 MG PO Q6H for Nausea/Vomiting, #10 TAB Prov: NORIS DOHERTY DO 11/05/18 NORIS DOHERTY DO Nov 05, 2018 18:12
[2018-11-05] MEDS ORDERED: ONDANSETRON 4 MG/2 ML (SDV) Z0FRAN IVP ONE (18:15)
[2018-11-05] MEDS ORDERED: PANTOPRAZOLE 40 MG (PROTONIX) VIAL IV ONE (18:15)
--- NOTE | 2018-11-05 18:18 | NUR ---
labs with iv by x 1 18 g r acf. labs to lab by
[2018-11-05 18:22] LABS: BILIRUBIN,URINE NEGATIVE (NEGATIVE); CLARITY,URINE SLIGHTLY CLOUDY; COLOR,URINE AMBER; GLUCOSE, URINE (UA) NEGATIVE (NEGATIVE); KETONES,URINE 1+ (NEGATIVE); LEUKOCYTE ESTERASE ,URINE 3+ (NEGATIVE); NITRITE,URINE NEGATIVE (NEGATIVE); PH,URINE 5 (5-9); PROTEIN,URINE 1+ (NEGATIVE); UROBILINOGEN,URINE 1 MG/DL (NORMAL)
[2018-11-05 18:27] LABS: BASOPHILS % (AUTO) 0 % (0-10); EOSINOPHILS # (AUTO) 0.1 10^3/uL (0.0-0.3); EOSINOPHILS % (AUTO) 1 % (0-10); HEMATOCRIT 44 % (35-52); HEMOGLOBIN 13.9 G/DL (11.5-16.0); LYMPHOCYTES # (AUTO) 1.4 X 10^3 (1.0-4.0); LYMPHOCYTES % (AUTO) 16 % (12-44); MEAN CORPUSCULAR HEMOGLOBIN 29 PG (25-34); MEAN CORPUSCULAR HGB CONC 32 G/DL (32-36); MEAN CORPUSCULAR VOLUME 91 FL (80-99); MEAN PLATELET VOLUME 10.5 FL (7.4-10.4); MONOCYTES # (AUTO) 0.6 X 10^3 (0.0-1.0); MONOCYTES % (AUTO) 7 % (0-12); NEUTROPHILS # (AUTO) 6.8 X 10^3 (1.8-7.8); NEUTROPHILS % (AUTO) 76 % (42-75); PLATELET COUNT 248 10^3/uL (130-400); RED CELL DISTRIBUTION WIDTH 15.2 % (10.0-14.5); WHITE BLOOD COUNT 8.9 10^3/uL (4.3-11.0)
[2018-11-05 18:31] LABS: BACTERIA,URINE MODERATE /HPF; RBC,URINE RARE /HPF; WBC,URINE 25-50 /HPF
[2018-11-05 18:39] LABS: INR 2.8 (0.8-1.4); PROTHROMBIN TIME PATIENT 31.1 SEC (12.2-14.7)
[2018-11-05 18:49] LABS: POTASSIUM 4.2 MMOL/L (3.6-5.0)
[2018-11-05 18:50] LABS: ALBUMIN 4.3 GM/DL (3.2-4.5); BILIRUBIN,TOTAL 0.4 MG/DL (0.1-1.0); CALCIUM 9.1 MG/DL (8.5-10.1); CREATININE SERUM 0.95 MG/DL (0.60-1.30); MAGNESIUM 2.2 MG/DL (1.8-2.4); TOTAL PROTEIN 8.2 GM/DL (6.4-8.2)
[2018-11-05] MEDS ORDERED: HOLD METFORMIN - RECEIVED CONTRAST 20 ML VIAL IV SCH (19:00)
[2018-11-05] MEDS ORDERED: NS 100 ML (IVPB) BAG IV ONE (19:00)
[2018-11-05] MEDS ORDERED: CATHETER FLUSH 10 ML SYR IV PRN (19:00)
[2018-11-05] MEDS ORDERED: IOHEXOL 350 MG/ML 100 ML (OMNIPAQUE 350) VIAL IV ONE (19:00)
--- NOTE | 2018-11-05 19:16 | Diagnostic Imaging Report ---
INDICATION: Left lower quadrant pain and vomiting. TIME OF EXAM: 07:03 p.m. FINDINGS: Heart size is stable. The lungs are clear. No free air is seen. There are surgical clips in the right upper quadrant. There is some moderate gaseous distention to the stomach. There is some moderate gaseous distention to the colon. The small bowel does not appear to be appreciably dilated. No wall thickening or pneumatosis is identified. No pathologic calcifications are seen. IMPRESSION: Moderate gaseous distention to the stomach and colon. No other significant abnormality is seen. Dictated by: Dictated on workstation # [id number]
--- NOTE | 2018-11-05 19:57 | Diagnostic Imaging Report ---
PROCEDURE: CT abdomen and pelvis with contrast. TECHNIQUE: Multiple contiguous axial images were obtained through the abdomen and pelvis after administration of intravenous contrast. Auto Exposure Controls were utilized during the CT exam to meet ALARA standards for radiation dose reduction. INDICATION: Left lower quadrant pain and vomiting. CORRELATION is made with prior CT from 07/10/2017. FINDINGS: There is subsegmental atelectasis or scarring in the right lower lobe. The liver does show generalized low density consistent with hepatic steatosis. No discrete mass is identified. The gallbladder is surgically absent. No biliary ductal dilatation is seen. The spleen is unremarkable. No adrenal mass is detected. The kidneys are unremarkable. There is no hydronephrosis. Aorta is calcified but nonaneurysmal. No definite inflammatory process in the abdomen or pelvis is seen. Specifically, no findings to suggest acute diverticulitis are identified. There is no free fluid or fluid collection. The bladder is decompressed. The uterus appears to be surgically absent. Bowel gas pattern appears nonobstructive. IMPRESSION: 1. Hepatic steatosis. 2. No acute feature is detected. Specifically, no findings to suggest acute diverticulitis are identified. Dictated by: Dictated on workstation # [id number]
[2018-11-05] MEDS ORDERED: cefTRIAXone FOR IV USE 1,000 MG in WATER (STERILE) FOR INJECTION 10 ML IV ONE (20:00)
[2018-11-05] MEDS ORDERED: cefTRIAXone 1,000 MG IV (ROCEPHIN) VIAL ONE (20:04)
[2018-11-05] MEDS ORDERED: ONDA8TAB13 PO (20:09)
[2018-11-05] MEDS ORDERED: NITR-65 PO (20:09)
[2018-11-05 21:19] VITALS: BP 164/68
== END 2018-11-05 21:19 | disposition home or self-care (01) ==
LOC: EDUNIT# 17:38 → ER 17:39
DX: N39.0 Urinary tract infection, site not specified (principal); K62.5 Hemorrhage of anus and rectum; R11.2 Nausea with vomiting, unspecified; J45.909 Unspecified asthma, uncomplicated; G47.30 Sleep apnea, unspecified; E78.00 Pure hypercholesterolemia, unspecified; I25.10 Atherosclerotic heart disease of native coronary artery without angina pectoris; G43.909 Migraine, unspecified, not intractable, without status migrainosus; K21.9 Gastro-esophageal reflux disease without esophagitis; E03.9 Hypothyroidism, unspecified; Z80.0 Family history of malignant neoplasm of digestive organs; Z82.49 Family history of ischemic heart disease and other diseases of the circulatory system; Z87.442 Personal history of urinary calculi; Z79.01 Long term (current) use of anticoagulants; Z88.8 Allergy status to other drugs, medicaments and biological substances; Z88.0 Allergy status to penicillin; Z88.5 Allergy status to narcotic agent; Z79.82 Long term (current) use of aspirin; Z79.02 Long term (current) use of antithrombotics/antiplatelets; Z90.49 Acquired absence of other specified parts of digestive tract; Z95.5 Presence of coronary angioplasty implant and graft; Z90.710 Acquired absence of both cervix and uterus
CPT/HCPCS: 36415; 74022; 74177; 80053; 81000; 82150; 83690; 83735; 85025; 85610; 85730; 86850; 86900; 86901; 87088; 93041

== ENCOUNTER 2018-11-13 19:29 | Emergency (ER) | payer MEDICARE, MEDICAID ==
[~2018-11-13] VITALS: Ht 157.5 cm; Wt 134.7 kg
--- OUTSIDE RECORDS SUMMARY | 2018-11-13 20:09 | XMS REPORT | Clinical Summary ---
Author Author [facility] Organization [facility] Address Unknown Phone Unavailable Care Team Providers Care Inspector Fuel Hose Name Role Phone Timmy Canales PCP Zena Ferrera RN Unavailable Unavailable Raman Haskins MD Unavailable Unavailable Jovanna Heath Unavailable Unavailable Source Comments Some departments are not documenting in the electronic medical record. If you d o not see the information that you expected, contact Release of Information in [facility] [employer] Information Management department at [phone] for further assistan ce in locating additional records.[facility] Allergies Comments Active Allergy Reactions Severity Noted [...] Use Types Packs/Day Years Used Never Smoker Drinks/Week oz/Week Comments Alcohol Use No Sex Assigned at Date Recorded Not on file Industry Job Start Date Occupation Not on file Not on file Not on file Travel End Travel History Travel Start No recent travel history available. 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 Blood Pressure 76 03/23/2014 2:06 PM RAILCAR BRAKE OPERATOR Pulse 37.1 C (98.8 F) 03/23/2014 2:06 PM RAILCAR BRAKE OPERATOR Temperature - - Respiratory Rate 93% 03/23/2014 2:06 PM RAILCAR BRAKE OPERATOR Oxygen Saturation - - Inhaled Oxygen Concentration 147.1 kg (324 lb 3.2 oz) 03/23/2014 2:06 PM RAILCAR BRAKE OPERATOR Weight - - Height - - Body Mass Index Plan of Treatment Health Maintenance Due Date Last Done Comments HEPATITIS C SCREENING 1957 PHYSICAL (COMPREHENSIVE) 1964 EXAM HIV SCREENING 1972 DTAP/TDAP VACCINES (1 - 12/10/1975 Tdap) CERVICAL CANCER SCREENING 12/10/1987 BREAST CANCER SCREENING 1997 COLORECTAL CANCER 12/10/2007 SCREENING SHINGLES RECOMBINANT 12/10/2007 VACCINE (1 of 2) INFLUENZA VACCINE 02/08/2019 Results Not on filefrom Last 3 Months Insurance Type Payer Benefit Subscriber ID Effective Phone Address Plan / Dates Group Medicare MEDICARE MEDICARE xxxxxxxxxx 2008-P PART [place] 2013- [place], [place] (Home) [place] [address] 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
--- OUTSIDE RECORDS SUMMARY | 2018-11-13 20:09 | XMS REPORT | Clinical Summary ---
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 Chronic migraine without aura without status migrainosus, not intractable Active Problems Problem Noted Date Chronic migraine without aura without status migrainosus, not intractable 02/12/2017 Endometrial hyperplasia without atypia, complex 04/01/2014 Family [...] Vaccine# (1 of 2) 12/10/2007 Influenza Vaccine (#1) 2019 Results Not on filefrom Last 3 Months
--- OUTSIDE RECORDS SUMMARY | 2018-11-13 20:10 | XMS REPORT ---
Author Author Migration, Doctor Organization [facility] Address Unknown Phone Unavailable Care Team Providers Care [employer] Operations Man Name Role Phone Migration, Doctor Unavailable Unavailable PROBLEMS Type Condition ICD9-CM Code FND35-OG Code Onset Dates Condition Status SNOMED Code Problem Shortness of breath R06.02 Apr, 0 876218580 Problem Unspecified hypothyroidism E03.9 0 80316647 Problem Generalized anxiety disorder F41.1 Apr, 0 16264493 Problem Esophageal reflux K21.9 0 014642895 Problem Dyslipidemia E78.5 Oct, 0 269648397 Problem Osteoarthritis of right knee M17.11 13 May, 2009 0 393933487 Problem Unspecified sleep apnea G47.30 0 66563754 Problem Morbid obesity with BMI of 50.0-59.9, adult Z68.43 Active 958766235 Problem Migraine with aura and without status migrainosus, not intractable G43.109 Active 8324811 Problem Pulmonary embolus I26.99 13 Oct, 2011 0 84060152 Problem Morbid obesity E66.01 Active 469749357 Problem Nonintractable migraine G43.009 08 Oct, 2015 0 261840237 Problem Hypothyroidism E03.9 Active 57945330 Problem Renal stones N20.0 Active 20838398 Problem Coronary artery disease I25.10 Active 89648466 Problem Hyperlipidemia LDL goal <70 E78.5 Active 03651941 ALLERGIES No Information ENCOUNTERS Encounter Location Date Diagnosis [facility] [id number] [address] Oct, [facility] [address] [address] September, [facility] [address], [place] [address] Aug, Right foot pain M79.671 and Morbid obesity E66.01 [facility] [id number] [place] [address] Jul, Right foot pain M79.671 and Morbid obesity E66.01 [facility] [id number] [place] [address] Jul, Injury of right foot, initial encounter S99.921A and Morbid obesity E66.01 [facility] [id number] [place] [address] Jul, Recurrent syncope R55 and Morbid obesity E66.01 [facility] [id number] [place] [address] Jul, [place] [id number] [place] [address] Jun, Hematuria, unspecified type R31.9 and BMI 50.0-59.9, adult Z68.43 [place] [id number] [place] [address] 07 Jun, [address] [address] 04 Jun, 2018 custodial current use of anticoagulant Z79.01 [facility] [id number] [place] [address] May, Ankle pain, right M25.571 and BMI 50.0-59.9, adult Z68.43 [place] [id number] [place] [address] May, [place] [id number] [place] [address] May, [place] [id number] [place] [address] Apr, [place] [id number] [place] [address] Apr, [place] [id number] [place] [address] Apr, [facility] [id number] [place] [address] Apr, BMI 50.0-59.9, adult Z68.43 and Weakness R53.1 [place] [address] [address] Apr, [facility] [place] [address] [address] Apr, Dysuria R30.0 ; Hematuria R31.9 ; Renal lithiasis N20.0 and BMI 50.0- 59.9, adult Z68.43 [place] [address] [address] Apr, [place] [address] [address] Apr, [place] [address] [address] Apr, Hypothyroidism E03.9 [place] [address] [address] Apr, Burning with urination R30.0 ; Type 2 diabetes mellitus with diabetic neuropathic arthropathy, 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 ; Acute bilateral low back pain without sciatica M54.5 and BMI 50.0-59.9, adult Z68.43 [place] [address] [address] Mar, Hypothyroidism E03.9 [place] [address] [address] Feb, [facility] IN [facility] [address] [address] Jan, [place] [address] [address] 07 Jan, 2018 Acute non-recurrent maxillary sinusitis J01.00 and BMI 50.0-59.9, adult Z68.43 [facility] IN [facility] [id number] [place] [address] Jan, Congestion of upper respiratory tract J98.8 and BMI 50.0-59.9, adult Z68.43 [facility] [id number] [place] [address] Dec, Type 2 diabetes mellitus with diabetic neuropathic arthropathy, 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 ; Morbid obesity with BMI of 50.0- 59.9, adult Z68.43 ; Hypothyroidism E03.9 ; Coronary artery disease I25.10 ; Hyperlipidemia LDL goal <70 E78.5 ; Right lower quadrant abdominal pain R10.31 and Acute cystitis with hematuria N30.01 [facility] IN [facility] [id number] [place] [address] Dec, Migraine with aura and without status migrainosus, not intractable G43.109 ; Dehydration symptoms R63.8 and BMI 50.0-59.9, adult Z68.43 [place] [id number] [place] [address] Oct, [place] [id number] [place] [address] Oct, [place] [id number] [place] [address] Oct, [place] [id number] [place] [address] September, [place] [id number] [place] [address] September, Type 2 diabetes mellitus with diabetic neuropathic arthropathy, 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 ; Hyperlipidemia, unspecified hyperlipidemia type E78.5 ; Personal history of pulmonary embolism Z86.711 ; Coronary artery disease I25.10 and Hypothyroidism E03.9 [place] [id number] [place] [address] September, [place] [id number] [place] [address] Aug, Type 2 diabetes mellitus with diabetic [...] without aura and with status migrainosus G43.011 [place] [address] [address] Aug, [place] [address] [address] Aug, [place] [address] [address] Jul, Renal stones N20.0 [facility] IN [facility] [id number] [place] [address] Jun, Back pain M54.9 ; Kidney stones N20.0 and BMI 50.0-59.9, adult Z68.43 [place] [id number] [place] [address] Jun, [place] [id number] [place] [address] Apr, [place] [id number] [place] [address] Apr, [place] [address] [address] Apr, Right foot pain M79.671 ; Acute gout involving toe of right foot, 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 and Arthritis M19.90 [place] [id number] [place] [address] Apr, Gastroesophageal reflux disease without esophagitis K21.9 [place] [id number] [place] [address] Mar, Hypothyroidism, unspecified E03.9 [place] [address] [address] Feb, [place] [address] [address] 25 Jan, 2017 Cervicalgia of qiyyzyks-pnlshvu-ntanx region M54.2 and Persistent headaches R51 [place] [address] [address] 20 Jan, 2017 [place] [address] [address] 12 Jan, 2017 Intractable migraine without aura and with status migrainosus G43.011 ; Cervical spine pain M54.2 ; Hyperlipidemia, unspecified hyperlipidemia type E78.5 ; Hypothyroidism E03.9 and Metabolic syndrome E88.81 [place] [address] [address] Jan, Hypothyroidism, unspecified E03.9 [place] [address] [address] Dec, Hypothyroidism, unspecified E03.9 [place] [address] [address] Dec, Hypothyroidism E03.9 [place] [address] [address] Nov, Laceration of left great toe w/o foreign body w/o damage to nail, initial encounter S91.112A [facility] [id number] [place] [address] Oct, Pain in left knee M25.562 and Arthritis M19.90 [place] [id number] [place] [address] Oct, Hypothyroidism, unspecified E03.9 and Hyperlipidemia, unspecified hyperlipidemia type E78.5 [place] [id number] [place] [address] 22 Oct, 2016 Gastroesophageal reflux disease without esophagitis K21.9 [place] [id number] [place] [address] 14 Oct, 2016 Metabolic syndrome E88.81 ; Personal history of pulmonary embolism Z86.711 ; Other specified hypothyroidism E03.8 and Hyperlipidemia, unspecified hyperlipidemia type E78.5 [place] [id number] [place] [address] 13 Oct, 2016 Personal history of pulmonary embolism Z86.711 ; Dysuria R30.0 ; Metabolic syndrome E88.81 ; Other specified hypothyroidism E03.8 ; Hyperlipidemia, unspecified hyperlipidemia type E78.5 and Morbid obesity with BMI of 50.0-59.9, adult Z68.43 [place] [id number] [place] [address] September, [facility] [id number] [place] [address] September, Wrist pain, left M25.532 and Acute pain of left knee M25.562 [place] [id number] [place] [address] Jul, Dysuria R30.0 [place] [id number] [place] [address] Jul, Dysuria R30.0 [place] [id number] [place] [address] Jul, Left lower quadrant pain R10.32 [place] [id number] [place] [address] Jul, [place] [id number] [place] [address] Jul, Coronary artery disease I25.10 ; Family history of diabetes mellitus Z83.3 ; Morbid obesity with BMI of 50.0-59.9, adult Z68.43 ; Metabolic syndrome E88.81 ; Personal history of pulmonary embolism Z86.711 ; Gastroesophageal reflux disease without esophagitis K21.9 ; Hypothyroidism, unspecified E03.9 ; Hyperlipidemia, unspecified hyperlipidemia type E78.5 and Left lower quadrant pain R10.32 [facility] [address] [address] 09 Jul, 2016 [facility] [address] [address] 08 Jul, 2016 Morbid obesity with BMI of 50.0-59.9, adult Z68.43 [facility] [address] [address] 07 Jul, 2016 Generalized abdominal pain R10.84 [facility] [address] [address] 02 Jun, 2016 Muscle strain of right upper back, initial encounter S29.012A [facility] [address] [address] May, Foreign body (FB) in soft tissue M79.[address] [address] Mar, Hypothyroidism, unspecified E03.9 and Arthritis M19.[address] [address] 13 Feb, 2016 Coronary artery disease I25.10 ; Morbid obesity with BMI of 50.0- 59.9, adult Z68.43 ; Metabolic syndrome E88.81 ; Gastroesophageal reflux disease without esophagitis K21.9 ; Hypothyroidism, unspecified E03.9 ; Personal history of pulmonary embolism Z86.711 and Hyperlipidemia, unspecified hyperlipidemia type E78.[address] [address] Feb, [facility] [address] [address] Jan, Acute right-sided thoracic back pain M54.6 [place] [id number] [place] [address] Jan, Acute pain of left knee M25.562 [place] [id number] [place] [address] Dec, Dysuria R30.0 ; Metabolic syndrome E88.81 ; Acute pain of left knee M25.562 ; Acute cystitis with hematuria N30.01 and Acute left eye pain H57.12 [place] [id number] [place] [address] Dec, [place] [id number] [place] [address] Dec, [place] [id number] [place] [address] Dec, Hypothyroidism, unspecified E03.9 [place] [id number] [place] [address] Dec, [place] [id number] [place] [address] Nov, Peripheral edema R60.9 and Acute pain of left knee M25.562 [facility] [id number] [place] [address] September, [place] [id number] [place] [address] September, Metabolic syndrome E88.81 and Allergy, subsequent encounter T78.40XD [facility] [id number] [place] [address] September, Muscle strain T14.8 [place] [id number] [place] [address] Aug, Chest pressure R07.89 ; Metabolic syndrome E88.81 ; Morbid obesity with BMI of 50.0-59.9, adult Z68.43 ; Esophageal reflux 530.81 and Shortness of breath R06.02 [place] [id number] [place] [address] Aug, [place] [address] [address] Aug, [place] [address] [address] Aug, Hypothyroidism, unspecified E03.9 [place] [address] [address] Aug, Routine health maintenance Z00.00 [facility] [address] [address] Aug, [address] [address] Jul, Routine health maintenance Z00.00 ; Family history of diabetes mellitus Z83.3 ; Family history of cancer Z80.9 and Morbid obesity with BMI of 50.0- 59.9, adult Z68.43 [facility] [address] [address] Jul, Allergic rhinitis J30.9 and Postnasal drip R09.[address] [address] Jul, Influenza J11.1 [facility] [address] [address] Jul, Dysuria R30.[address] [address] Apr, [address] [address] Mar, Acute upper respiratory infection, unspecified J06.9 and Hypothyroidism E03.[address] [place] [address] Mar, [facility] [address] [id number], [place] [address] Feb, Coronary artery disease I25.10 [facility] [address], [place] [address] 16 Feb, 2015 Left foot pain M79.672 [facility] [address], [place] [address] Jan, UTI (urinary tract infection) 599.0 [facility] [address] [id number], [place] [address] Jan, Urinary tract infection, site not specified 599.0 [facility] [address] [facility] [id number], [place] [address] Jan, Urinary tract infection, site not specified 599.0 [facility] [address], [place] [address] Jan, [facility] [id number], [place] [address] Dec, Headache 784.0 [facility] [id number], [place] [address] Dec, Urinary tract infection, site not specified 599.0 [facility] [id number] [address] Dec, Urinary tract infection, site not specified 599.0 [facility] [address] [facility] [id number], [place] [address] Dec, Urinary tract infection, site not specified 599.0 [facility] [id number], [place] [address] Nov, Unspecified sleep apnea 780.57 ; Encounter for long-term (current) use of anticoagulants V58.61 ; Routine general medical examination at health care facility V70.0 and Arthritis of both knees 716.96 [facility] [address] [facility] [id number], [place] [address] September, Cat bite of hand 882.0 and Rectal bleeding 569.3 [facility] [address], [place] [address] Aug, [facility] [address] [place] [address] Aug, [facility] [address] [facility] [id number], [place] [address] Jul, [facility] [id number] [place] [address] Jul, [facility] [address] [place] [address] Jul, [facility] [address], [place] [address] Jul, [facility] [address] [place] [address] Jul, [facility] [address] [place] [address] Jul, [facility] [address] [place] [address] Jul, [facility] [address], [place] [address] Jul, [facility] [id number], [place] [address] May, [facility] [address], [place] [address] May, [facility] [address], [place] [address] May, [facility] [address] [place] [address] May, [facility] [place] [facility] [address] [id number] [place] [address] 16 May, 2014 [facility] [place] [facility] [address] [id number] [place] [address] May, [facility] [place] [facility] [address] [id number] [place] [address] 15 May, 2014 [facility] [place] [facility] [address] [id number] [place] [address] Mar, [facility] [place] [facility] [address] [id number] [place] [address] Mar, [facility] [place] [facility] [address] [id number] [place] [address] 08 Jan, 2013 [facility] [place] [facility] [address] [id number] [place] [address] 08 Jan, 2013 [facility] [place] [facility] [address] [id number] [place] [address] 08 Jan, 2013 [facility] [place] [facility] [address] [id number] [place] [address] 08 Jan, 2013 [facility] [place] [facility] [address] [id number] [place] [address] 05 Jan, 2013 [facility] [place] [facility] [address] [id number] [place] [address] 05 Jan, 2014 [facility] [place] [facility] [address] [id number] [place] [address] Dec, [facility] [place] [facility] [address] [id number] [place] [address] Dec, [facility] [place] [facility] [address] [id number] [place] [address] Dec, [facility] [place] [facility] [address] [id number] [place] [address] Dec, [facility] [place] [facility] [address] [id number] [place] [address] Dec, [facility] [place] [facility] [address] [id number] [place] [address] Dec, [facility] [place] [facility] [address] [id number] [place] [address] Dec, [facility] [place] [facility] [address] [id number] [place] [address] Dec, [facility] [place] [facility] [address] [id number] [place] [address] Dec, [facility] [place] [facility] [address] [id number] [place] [address] Dec, [facility] [place] [facility] [address] [id number] [place] [address] Nov, [facility] [place] [facility] [address] [id number] [place] [address] Nov, [facility] [place] [facility] [address] [id number] [place] [address] September, [facility] [place] [facility] [address] [id number] [place] [address] September, [facility] [place] [facility] [address] [id number] [place] [address] September, [facility] [place] [facility] [address] [id number] [place] [address] September, [facility] [place] [facility] [address] [id number] [place] [address] Aug, [facility] [place] [facility] [address] [id number] [place] [address] Aug, [facility] [place] [facility] [address] [id number] [place] [address] Aug, [facility] [place] [facility] [address] [id number] [place] [address] Aug, [facility] [place] [facility] [address] [id number] [place] [address] Aug, [facility] [place] [facility] [address] [id number] [place] [address] Aug, [facility] [place] [facility] [address] [id number] [place] [address] Aug, [facility] [place] [facility] [address] [id number] [place] [address] Aug, [facility] [place] [facility] [address] [id number] [place] [address] Aug, [facility] [place] [facility] [address] [id number] [place] [address] Aug, [facility] [place] [facility] [address] [id number] [place] [address] Aug, [facility] [place] [facility] [address] [id number] [place] [address] Aug, [facility] [place] [facility] [address] [id number] [place] [address] Jul, [facility] [place] [facility] [address] [id number] [place] [address] Jul, [facility] [place] [facility] [address] [id number] [place] [address] Jul, [facility] [place] [facility] [address] [id number] [place] [address] Jul, [facility] [place] [facility] [address] [id number] [place] [address] Jul, [facility] [place] [facility] [address] [id number] [place] [address] Jul, [facility] [place] [facility] [address] [id number] [place] [address] Jul, [facility] [place] [facility] [address] [id number] [place] [address] Jul, [facility] [place] [facility] [address] [id number] [place] [address] Jul, [facility] [place] [facility] [address] [id number] [place] [address] Jul, [facility] [place] [facility] [address] [id number] [place] [address] Jun, [facility] [place] [facility] [address] [id number] [place] [address] Jun, [facility] [place] [facility] [address] [id number] [place] [address] Jun, [facility] [place] [facility] [address] [id number] [place] [address] Jun, [facility] [place] [facility] [address] [id number] [place] [address] Jun, [facility] [place] [facility] [address] [id number] [place] [address] Jun, [facility] [place] [facility] [address] [id number] [place] [address] Jun, [facility] [place] [facility] [address] [id number] [place] [address] Jun, [facility] [place] [facility] [address] [id number] [place] [address] Jun, [facility] [place] [facility] [address] [id number] [place] [address] Jun, [facility] [place] [facility] [address] [id number] [place] [address] Jun, [facility] [place] [facility] [address] [id number] [place] [address] Jun, [facility] [place] [facility] [address] [id number] [place] [address] May, [facility] [place] [facility] [address] [id number] [place] [address] May, [facility] [address] [id number] [place] [address] May, [facility] [address] [id number] [place] [address] May, [facility] [address] [id number] [place] [address] May, [facility] [address] [id number] [place] [address] May, [facility] [address] [id number] [place] [address] May, [facility] [address] [id number] [place] [address] May, [facility] [address] [id number] [place] [address] May, [facility] [address] [id number] [place] [address] May, [facility] [address] [id number] [place] [address] May, [facility] [address] [id number] [place] [address] May, [facility] [address] [id number] [place] [address] May, [facility] [address] [id number] [place] [address] May, [facility] [place] [facility] [address] [id number] [place] [address] May, [facility] [place] [facility] [address] [id number] [place] [address] Apr, [facility] [address] [id number] [place] [address] Apr, [facility] [place] [facility] [address] [id number] [place] [address] Apr, [facility] [place] [facility] [address] [id number] [place] [address] Apr, [facility] [place] [facility] [address] [id number] [place] [address] Mar, [facility] [place] [facility] [address] [id number] [place] [address] Mar, [facility] [place] [facility] [address] [id number] [place] [address] Mar, [facility] [place] [facility] [address] [id number] [place] [address] Mar, [facility] [place] [facility] [address] [id number] [place] [address] Mar, [facility] [place] [facility] [address] [id number] [place] [address] Mar, [facility] [place] [facility] [address] [id number] [place] [address] Mar, [facility] [place] [facility] [address] [id number], [place] [address] Mar, [facility] [place] [facility] [address] [id number], [place] [address] Mar, [facility] [place] [facility] [address] [id number], [place] [address] Mar, [facility] [place] [facility] [address] [id number], [place] [address] Mar, [facility] [place] [facility] [address] [id number], [place] [address] Mar, [facility] [place] [facility] [address] [id number], [place] [address] Feb, [facility] [place] [facility] [address] [id number], [place] [address] 18 Jan, 2013 [facility] [place] [facility] [address] [id number] [place] [address] 17 Jan, 2012 [facility] [place] [facility] [address] [id number] [place] [address] 06 Jan, 2013 [facility] [place] [facility] [address] [id number] [place] [address] 04 Jan, 2013 [facility] [place] [facility] [address] [id number] [place] [address] Jan, [facility] [place] [facility] [address] [id number] [place] [address] Dec, [facility] [place] [facility] [address] [id number] [place] [address] Dec, [facility] [place] [facility] [address] [id number] [place] [address] Dec, [facility] [place] [facility] [address] [id number] [place] [address] Dec, [facility] [place] [facility] [address] [id number] [place] [address] Dec, [facility] [place] [facility] [address] [id number] [place] [address] Dec, [facility] [place] [facility] [address] [id number] [place] [address] Dec, [facility] [place] [facility] [address] [id number] [place] [address] Dec, [facility] [place] [facility] [address] [id number] [place] [address] Nov, [facility] [place] [facility] [address] [id number] [place] [address] Nov, [facility] [place] [facility] [address] [id number] [place] [address] Nov, [facility] [place] [facility] [address] [id number], [place] [address] Nov, [facility] [place] [facility] [address] [id number], [place] [address] Nov, [facility] [place] [facility] [address] [id number], [place] [address] Nov, [facility] [place] [facility] [address] [id number], [place] [address] Oct, [facility] [address] [id number] [place] [id number] Oct, [facility] [address] [id number] [place] [id number] Oct, [facility] [address] [id number] [place] [id number] Oct, [facility] [address] [id number] [place] [id number] Oct, [facility] [place] [facility] [address] [id number], [place] [address] Oct, [facility] [place] [facility] [address] [id number], [place] [address] Oct, [facility] [place] [facility] [address] [facility] [id number], [place] [address] Oct, [facility] [place] [facility] [address] [facility] [id number], [place] [address] Oct, [facility] [place] [facility] [address] [id number], [place] [address] Oct, [facility] [place] [facility] [address] [facility] [id number], [place] [address] Oct, [facility] [place] [facility] [address] [facility] [id number], [place] [address] September, [facility] [place] [facility] [address] [facility] [id number], [place] [address] Aug, [facility] [place] [facility] [address] [id number] [place] [address] 10 Aug, 2012 [facility] [address] [id number] [place] [address] 02 Aug, 2012 [facility] [place] [facility] [address] [id number] [place] [address] Aug, [facility] [address] [id number] [place] [address] 24 Jul, 2012 [facility] [place] [facility] [address] [id number] [place] [address] Jul, [facility] [place] [facility] [address] [id number] [place] [address] Jul, [facility] [place] [facility] [address] [id number] [place] [address] Jul, [facility] [address] [id number] [place] [address] Jul, [facility] [address] [id number] [place] [address] Jun, [facility] [address] [id number] [place] [address] Jun, [facility] [address] [id number] [place] [address] Jun, [facility] [address] [id number] [place] [address] May, [facility] [place] [facility] [address] [id number] [place] [address] 24 May, 2012 [facility] [place] [facility] [address] [id number] [place] [address] 14 May, 2012 [facility] [place] [facility] [address] [id number] [place] [address] May, [facility] [place] [facility] [address] [id number] [place] [address] May, [facility] [place] [facility] [address] [id number] [place] [address] May, [facility] [place] [facility] [address] [id number] [place] [address] 18 Apr, 2012 [facility] [place] [facility] [address] [id number] [place] [address] 18 Apr, 2012 [facility] [place] [facility] [address] [id number] [place] [address] Apr, [facility] [address] [id number] [place] [address] Apr, [facility] [place] [facility] [address] [id number] [place] [address] Apr, [facility] [address] [id number] [place] [address] Apr, [facility] [address] [id number] [place] [address] Apr, [facility] [place] [facility] [address] [id number] [place] [address] Mar, [facility] [place] [facility] [address] [id number] [place] [address] Mar, [facility] [place] [facility] [address] [id number] [place] [address] Mar, [facility] [place] [facility] [address] [id number] [place] [address] Mar, [facility] [place] [facility] [address] [id number] [place] [address] 18 Jan, 2012 [facility] [place] [facility] [address] [id number] [place] [address] 10 Jan, 2012 [facility] [place] [facility] [address] [id number] [place] [address] 06 Jan, 2012 [facility] [place] [facility] [address] [id number], [place] [address] Jan, [facility] [address] [facility] [id number] [id number] Dec, [facility] [address] [id number], [place] [address] Dec, [facility] [address] [facility] [id number] [place] [id number] Dec, [facility] [id number], [place] [address] Dec, [facility] [id number], [place] [address] Dec, [facility] [id number], [place] [address] Dec, [facility] [id number], [place] [address] Nov, [facility] [id number], [place] [address] Nov, [facility] [address] [id number], [place] [address] Nov, IMMUNIZATIONS No Known Immunizations SOCIAL HISTORY Never Assessed REASON FOR VISIT [facility] PLAN OF CARE VITAL SIGNS MEDICATIONS Unknown [...] with polyp removed/ Dr. North and Dr. Santana- had one cancerous. 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 Medical History Renal lithiasis Medical History Acute gout involving toe of right foot, unspecified cause Medical History Personal history of pulmonary embolism Surgical History heart cath-mild LAD, moderate RCA stenosis 02/2012 Surgical History lumpectomy 2007 Surgical History appendectomy Surgical History dilatation and curettage 09/2011 Surgical History spine surgery-bone in 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
--- OUTSIDE RECORDS SUMMARY | 2018-11-13 20:10 | XMS REPORT ---
Author Author Migration, Doctor Organization [facility] [facility] Address Unknown Phone Unavailable Care Team Providers Care Hydro Operator Name Role Phone Migration, Doctor Unavailable Unavailable PROBLEMS Type Condition ICD9-CM Code SRC84-OE Code Onset Dates Condition Status SNOMED Code Problem Shortness of breath R06.02 Apr, 0 445393805 Problem Unspecified hypothyroidism E03.9 0 43665889 Problem Generalized anxiety disorder F41.1 Apr, 0 75652762 Problem Esophageal reflux K21.9 0 040671341 Problem Dyslipidemia E78.5 Oct, 0 956912961 Problem Osteoarthritis of right knee M17.11 13 May, 2009 0 194375898 Problem Unspecified sleep apnea G47.30 0 45217121 Problem Morbid obesity with BMI of 50.0-59.9, adult Z68.43 Active 862788576 Problem Migraine with aura and without status migrainosus, not intractable G43.109 Active 2512921 Problem Pulmonary embolus I26.99 13 Oct, 2011 0 12171939 Problem Morbid obesity E66.01 Active 065185202 Problem Nonintractable migraine G43.009 08 Oct, 2015 0 989142317 Problem Hypothyroidism E03.9 Active 89036067 Problem Renal stones N20.0 Active 76546384 Problem Coronary artery disease I25.10 Active 72439393 Problem Hyperlipidemia LDL goal <70 E78.5 Active 38521119 ALLERGIES Substance Reaction Event Type Date Status Adhesive Unknown Non Drug Allergy Aug, Active Tape Unknown Non Drug Allergy Aug, Active Nexium Unknown Drug Allergy Aug, Active Levothroid 125 Mcg Tablet Unknown Non Drug Allergy Aug, Active Dexamethasone Unknown Drug Allergy Aug, Active Azithromycin Unknown Drug Allergy Aug, Active Amoxicillin Unknown Drug Allergy Aug, Active Phenergan Plain HALLUCINATION Non Drug Allergy Aug, Active Methylprednisolone Unknown Drug Allergy Aug, Active Honey Bee Venom Unknown Drug Allergy Aug, Active ENCOUNTERS Encounter Location Date Diagnosis [facility] [address] [facility] [id number] [address] September, [facility] [id number] [place] [address] September, [facility] [address] [place] [id number] [place] [address] Aug, Right foot pain M79.671 and Morbid obesity E66.01 [place] [address] [place] [id number] [place] [address] Jul, Right foot pain M79.671 and Morbid obesity E66.01 [facility] [address] [place] [id number] [place] [address] Jul, Injury of right foot, initial encounter S99.921A and Morbid obesity E66.01 [place] [address] [place] [id number] [place] [address] Jul, Recurrent syncope R55 and Morbid obesity E66.01 [place] [address] [place] [id number] [place] [address] Jul, [place] [address] [place] [id number] [place] [address] Jun, Hematuria, unspecified type R31.9 and BMI 50.0-59.9, adult Z68.43 [place] [id number] [place] [address] 07 Jun, [address] [address] 04 Jun, 2018 retirement current use of anticoagulant Z79.01 [facility] [id number] [place] [address] May, Ankle pain, right M25.571 and BMI 50.0-59.9, adult Z68.43 [place] [id number] [place] [address] May, [place] [address] [place] [id number] [place] [address] May, [facility] [address] [id number] [place] [address] Apr, [place] [address] [place] [id number] [place] [address] Apr, [place] [address] [place] [id number] [place] [address] Apr, [facility] [address] [address] Apr, BMI 50.0-59.9, adult Z68.43 and Weakness R53.1 [place] [address] [place] [id number] [place] [address] Apr, [facility] [place] [address] [place] [id number] [place] [address] Apr, Dysuria R30.0 ; Hematuria R31.9 ; Renal lithiasis N20.0 and BMI 50.0- 59.9, adult Z68.43 [place] [address] [place] [id number] [place] [address] Apr, [place] [address] [place] [id number] [place] [address] Apr, [place] [address] [place] [id number] [place] [address] Apr, Hypothyroidism E03.9 [place] [address] [place] [id number] [place] [address] 04 Apr, 2018 Burning with urination R30.0 ; Type 2 diabetes mellitus with diabetic neuropathic arthropathy, 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 ; Acute bilateral low back pain without sciatica M54.5 and BMI 50.0-59.9, adult Z68.43 [place] [address] [place] [id number] [place] [address] 02 Mar, 2018 Hypothyroidism E03.9 [place] [address] [place] [id number] [place] [address] Feb, [facility] [id number] [place] [address] 15 Jan, 2018 [place] [address] [place] [id number] [place] [address] 07 Jan, 2018 Acute non-recurrent maxillary sinusitis J01.00 and BMI 50.0-59.9, adult Z68.43 [facility] [id number] [place] [address] 04 Jan, 2018 Congestion of upper respiratory tract J98.8 and BMI 50.0-59.9, adult Z68.43 [place] [address] [place] [id number] [place] [address] Dec, Type 2 diabetes mellitus with diabetic neuropathic arthropathy, 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 ; Morbid obesity with BMI of 50.0- 59.9, adult Z68.43 ; Hypothyroidism E03.9 ; Coronary artery disease I25.10 ; Hyperlipidemia LDL goal <70 E78.5 ; Right lower quadrant abdominal pain R10.31 and Acute cystitis with hematuria N30.01 [facility] [place] [address] [place] [id number] [place] [address] Dec, Migraine with aura and without status migrainosus, not intractable G43.109 ; Dehydration symptoms R63.8 and BMI 50.0-59.9, adult Z68.43 [place] [address] [place] [id number] [place] [address] Oct, [place] [address] [place] [id number] [place] [address] Oct, [place] [address] [place] [id number] [place] [address] Oct, [place] [address] [place] [id number] [place] [address] September, [place] [address] [place] [address] September, Type 2 diabetes mellitus with diabetic neuropathic arthropathy, 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 ; Hyperlipidemia, unspecified hyperlipidemia type E78.5 ; Personal history of pulmonary embolism Z86.711 ; Coronary artery disease I25.10 and Hypothyroidism E03.9 [facility] [address] [id number] [place] [address] September, [facility] [address] [address] Aug, Type 2 diabetes mellitus with diabetic [...] without aura and with status migrainosus G43.011 [facility] [address] [address] Aug, [facility] [address] [address] Aug, [facility] [address] [place] [id number] [place] [address] Jul, Renal stones N20.0 [facility] [id number] [place] [address] Jun, Back pain M54.9 ; Kidney stones N20.0 and BMI 50.0-59.9, adult Z68.43 [facility] [address] [address] Jun, [facility] [address] [place] [id number] [place] [address] Apr, [facility] [address] [address] Apr, [place] [address] [place] [id number] [place] [address] Apr, Right foot pain M79.671 ; Acute gout involving toe of right foot, 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 and Arthritis M19.90 [place] [address] [place] [id number] [place] [address] 06 Apr, 2017 Gastroesophageal reflux disease without esophagitis K21.9 [place] [address] [address] 16 Mar, 2017 Hypothyroidism, unspecified E03.9 [place] [address] [address] 11 Feb, 2017 [place] [address] [place] [id number] [place] [address] 25 Jan, 2017 Cervicalgia of vlmjxzrx-wahpmga-ixagd region M54.2 and Persistent headaches R51 [place] [address] [place] [id number] [place] [address] 20 Jan, 2017 [place] [address] [address] 12 Jan, 2017 Intractable migraine without aura and with status migrainosus G43.011 ; Cervical spine pain M54.2 ; Hyperlipidemia, unspecified hyperlipidemia type E78.5 ; Hypothyroidism E03.9 and Metabolic syndrome E88.81 [place] [address] [place] [id number] [place] [address] Jan, Hypothyroidism, unspecified E03.9 [place] [address] [place] [id number] [place] [address] Dec, Hypothyroidism, unspecified E03.9 [place] [address] [place] [id number] [place] [address] Dec, Hypothyroidism E03.9 [place] [address] [place] [id number] [place] [address] Nov, Laceration of left great toe w/o foreign body w/o damage to nail, initial encounter S91.112A [facility] [id number] [place] [address] Oct, Pain in left knee M25.562 and Arthritis M19.90 [place] [address] [place] [id number] [place] [address] Oct, Hypothyroidism, unspecified E03.9 and Hyperlipidemia, unspecified hyperlipidemia type E78.5 [place] [address] [place] [id number] [place] [address] Oct, Gastroesophageal reflux disease without esophagitis K21.9 [place] [address] [place] [id number] [place] [address] 14 Oct, 2016 Metabolic syndrome E88.81 ; Personal history of pulmonary embolism Z86.711 ; Other specified hypothyroidism E03.8 and Hyperlipidemia, unspecified hyperlipidemia type E78.5 [place] [address] [place] [id number] [place] [address] 13 Oct, 2016 Personal history of pulmonary embolism Z86.711 ; Dysuria R30.0 ; Metabolic syndrome E88.81 ; Other specified hypothyroidism E03.8 ; Hyperlipidemia, unspecified hyperlipidemia type E78.5 and Morbid obesity with BMI of 50.0-59.9, adult Z68.43 [place] [address] [place] [id number] [place] [address] September, [facility] [address] [place] [id number] [place] [address] September, Wrist pain, left M25.532 and Acute pain of left knee M25.562 [place] [address] [place] [id number] [place] [address] Jul, Dysuria R30.0 [place] [address] [place] [id number] [place] [address] Jul, Dysuria R30.0 [facility] [place] [id number] [place] [address] 16 Jul, 2016 Left lower quadrant pain R10.[address] [address] 14 Jul, [address] [address] 09 Jul, 2016 Coronary artery disease I25.10 ; Family history of diabetes mellitus Z83.3 ; Morbid obesity with BMI of 50.0-59.9, adult Z68.43 ; Metabolic syndrome E88.81 ; Personal history of pulmonary embolism Z86.711 ; Gastroesophageal reflux disease without esophagitis K21.9 ; Hypothyroidism, unspecified E03.9 ; Hyperlipidemia, unspecified hyperlipidemia type E78.5 and Left lower quadrant pain R10.32 [facility] [address] [address] 09 Jul, 2016 [facility] [address] [address] 08 Jul, 2016 Morbid obesity with BMI of 50.0-59.9, adult Z68.43 [facility] [address] [address] 07 Jul, 2016 Generalized abdominal pain R10.84 [facility] [address] [address] 02 Jun, 2016 Muscle strain of right upper back, initial encounter S29.012A [facility] [address] [address] May, Foreign body (FB) in soft tissue M79.[address] [address] Mar, Hypothyroidism, unspecified E03.9 and Arthritis M19.90 [place] [id number] [place] [address] 13 Feb, 2016 Coronary artery disease I25.10 ; Morbid obesity with BMI of 50.0- 59.9, adult Z68.43 ; Metabolic syndrome E88.81 ; Gastroesophageal reflux disease without esophagitis K21.9 ; Hypothyroidism, unspecified E03.9 ; Personal history of pulmonary embolism Z86.711 and Hyperlipidemia, unspecified hyperlipidemia type E78.5 [facility] [address] [id number] [place] [address] Feb, [facility] [address] [place] [id number] [place] [address] Jan, Acute right-sided thoracic back pain M54.6 [place] [address] [address] Jan, Acute pain of left knee M25.562 [place] [address] [place] [id number] [place] [address] Dec, Dysuria R30.0 ; Metabolic syndrome E88.81 ; Acute pain of left knee M25.562 ; Acute cystitis with hematuria N30.01 and Acute left eye pain H57.12 [place] [address] [place] [id number] [place] [address] Dec, [place] [address] [place] [id number] [place] [address] Dec, [place] [address] [place] [id number] [place] [address] Dec, Hypothyroidism, unspecified E03.9 [place] [address] [place] [id number] [place] [address] Dec, [place] [address] [place] [id number] [place] [address] Nov, Peripheral edema R60.9 and Acute pain of left knee M25.562 [facility] [address] [place] [id number] [place] [address] September, [place] [address] [address] September, Metabolic syndrome E88.81 and Allergy, subsequent encounter T78.40XD [facility] [address] [place] [id number] [place] [address] September, Muscle strain T14.8 [facility] [address] [place] [id number] [place] [address] Aug, Chest pressure R07.89 ; Metabolic syndrome E88.81 ; Morbid obesity with BMI of 50.0-59.9, adult Z68.43 ; Esophageal reflux 530.81 and Shortness of breath R06.02 [place] [address] [place] [id number] [place] [address] Aug, [place] [address] [place] [id number] [place] [address] Aug, [place] [address] [place] [id number] [place] [address] Aug, Hypothyroidism, unspecified E03.9 [place] [address] [place] [id number] [place] [address] Aug, Routine health maintenance Z00.00 [facility] [place] [address] [place] [id number] [place] [address] Aug, [place] [address] [place] [id number] [place] [address] Jul, Routine health maintenance Z00.00 ; Family history of diabetes mellitus Z83.3 ; Family history of cancer Z80.9 and Morbid obesity with BMI of 50.0- 59.9, adult Z68.43 [facility] [address] [place] [id number] [place] [address] 28 Jul, 2015 Allergic rhinitis J30.9 and Postnasal drip R09.82 [place] [address] [place] [id number] [place] [address] 18 Jul, 2015 Influenza J11.1 [facility] [place] [id number] [place] [address] Jul, Dysuria R30.0 [facility] [address] [address] Apr, [facility] [id number] [place] [address] Mar, Acute upper respiratory infection, unspecified J06.9 and Hypothyroidism E03.9 [facility] [address] [place] [id number] [place] [address] Mar, [facility] [address] [place] [id number] [place] [address] Feb, Coronary artery disease I25.10 [facility] [address] [place] [id number] [place] [address] Feb, Left foot pain M79.672 [facility] [id number] [place] [address] Jan, UTI (urinary tract infection) 599.0 [facility] [address] [address] Jan, Urinary tract infection, site not specified 599.0 [facility] [address] [address] Jan, Urinary tract infection, site not specified 599.0 [facility] [address] [address] Jan, [facility] [address] [address] Dec, Headache 784.0 [facility] [address] [address] Dec, Urinary tract infection, site not specified 599.0 [facility] [address] [place] [id number] [address] Dec, Urinary tract infection, site not specified 599.0 [facility] [id number] [address] Dec, Urinary tract infection, site not specified 599.0 [facility] [address] [place] [id number] [place] [address] Nov, Unspecified sleep apnea 780.57 ; Encounter for long-term (current) use of anticoagulants V58.61 ; Routine general medical examination at health care facility V70.0 and Arthritis of both knees 716.96 [facility] [address] [place] [place] [id number] [place] [address] September, Cat bite of hand 882.0 and Rectal bleeding 569.3 [facility] [address] [place] [id number] [place] [address] Aug, [facility] [address] [id number] [place] [address] Aug, [facility] [address] [id number] [place] [address] Jul, [facility] [address] [place] [id number] [place] [address] Jul, [facility] [address] [place] [id number] [place] [address] Jul, [facility] [address] [address] Jul, [facility] [id number] [address] Jul, [facility] [address] [address] Jul, [facility] [address] [place] [id number] [place] [address] Jul, [facility] [address] [address] Jul, [facility] [address] [place] [id number] [place] [address] May, [facility] [place] [facility] [address] [id number] [place] [address] May, [facility] [place] [facility] [address] [id number] [place] [address] May, [facility] [place] [facility] [address] [id number] [place] [address] May, [facility] [place] [facility] [address] [id number] [place] [address] May, [facility] [place] [facility] [address] [id number] [place] [address] May, [facility] [place] [facility] [address] [id number] [place] [address] May, [facility] [place] [facility] [address] [id number] [place] [address] Mar, [facility] [place] [facility] [address] [id number] [address] Mar, [facility] [place] [facility] [address] [id number] [place] [address] 08 Jan, 2014 [facility] [place] [facility] [address] [id number] [place] [address] 08 Jan, 2013 [facility] [place] [facility] [address] [id number] [address] 08 Jan, 2013 [facility] [place] [facility] [address] [id number], [place] [address] 08 Jan, 2013 [facility] [place] [facility] [address] [id number] [place] [address] 05 Jan, 2014 [facility] [place] [facility] [address] [id number], [place] [address] 05 Jan, 2013 [facility] [place] [facility] [address] [id number] [place] [address] 18 Dec, 2013 [facility] [place] [facility] [address] [id number] [place] [address] Dec, [facility] [place] [facility] [address] [id number] [place] [address] Dec, [facility] [place] [facility] [address] [id number] [place] [address] Dec, [facility] [place] [facility] [address] [id number] [place] [address] Dec, [facility] [place] [facility] [address] [id number] [place] [address] Dec, [facility] [place] [facility] [address] [id number] [place] [address] Dec, [facility] [place] [facility] [address] [id number] [place] [address] Dec, [facility] [place] [facility] [address] [id number] [place] [address] Dec, [facility] [place] [facility] [address] [id number] [place] [address] Dec, [facility] [place] [facility] [address] [id number] [place] [address] Nov, [facility] [place] [facility] [address] [id number] [place] [address] Nov, [facility] [place] [facility] [address] [id number] [place] [address] September, [facility] [place] [facility] [address] [id number] [place] [address] September, [facility] [place] [facility] [address] [id number] [place] [address] September, [facility] [place] [facility] [address] [id number] [place] [address] September, [facility] [place] [facility] [address] [id number] [place] [address] Aug, [facility] [place] [facility] [address] [id number] [place] [address] Aug, [facility] [place] [facility] [address] [id number] [place] [address] Aug, [facility] [place] [facility] [address] [id number] [place] [address] Aug, [facility] [place] [facility] [address] [id number] [place] [address] Aug, [facility] [place] [facility] [address] [id number] [place] [address] Aug, [facility] [place] [facility] [address] [id number] [place] [address] Aug, [facility] [place] [facility] [address] [id number] [place] [address] Aug, [facility] [place] [facility] [address] [id number] [place] [address] Aug, [facility] [place] [facility] [address] [id number] [place] [address] Aug, [facility] [place] [facility] [address] [id number] [place] [address] Aug, [facility] [place] [facility] [address] [id number] [place] [address] Aug, [facility] [place] [facility] [address] [id number] [place] [address] Jul, [facility] [place] [facility] [address] [id number] [place] [address] Jul, [facility] [place] [facility] [address] [id number] [place] [address] Jul, [facility] [place] [facility] [address] [id number] [place] [address] Jul, [facility] [place] [facility] [address] [id number] [place] [address] Jul, [facility] [place] [facility] [address] [id number] [place] [address] Jul, [facility] [place] [facility] [address] [id number] [place] [address] Jul, [facility] [place] [facility] [address] [facility] [id number] [place] [address] Jul, [facility] [place] [facility] [address] [id number] [place] [address] Jul, [facility] [place] [facility] [address] [id number] [place] [address] Jul, [facility] [place] [facility] [address] [id number] [place] [address] Jun, [facility] [place] [facility] [address] [facility] [id number] [place] [address] Jun, [facility] [place] [facility] [address] [facility] [id number] [place] [address] Jun, [facility] [place] [facility] [address] [facility] [id number] [place] [address] Jun, [facility] [place] [facility] [address] [facility] [id number] [place] [address] Jun, [facility] [place] [facility] [address] [facility] [id number] [place] [address] Jun, [facility] [place] [facility] [address] [facility] [id number] [place] [address] Jun, [facility] [place] [facility] [address] [id number] [place] [address] Jun, [facility] [place] [facility] [address] [facility] [id number] [place] [address] Jun, [facility] [place] [facility] [address] [facility] [id number] [place] [address] Jun, [facility] [place] [facility] [address] [id number] [place] [address] Jun, [facility] [place] [facility] [address] [id number] [place] [address] Jun, [facility] [place] [facility] [address] [id number] [place] [address] May, [facility] [place] [facility] [address] [id number] [place] [address] May, [facility] [place] [facility] [address] [id number] [place] [address] May, [facility] [place] [facility] [address] [id number] [place] [address] May, [facility] [place] [facility] [address] [id number] [place] [address] May, [facility] [place] [facility] [address] [id number] [place] [address] May, [facility] [place] [facility] [address] [id number] [place] [address] May, [facility] [place] [facility] [address] [id number], [place] [address] May, [facility] [place] [facility] [address] [id number], [place] [address] May, [facility] [place] [facility] [address] [id number], [place] [address] May, [facility] [place] [facility] [address] [id number] [place] [address] May, [facility] [place] [facility] [address] [id number], [place] [address] May, [facility] [place] [facility] [address] [id number], [place] [address] May, [facility] [place] [facility] [address] [id number], [place] [address] May, [facility] [address] [id number] [place] [address] May, [facility] [place] [facility] [address] [id number], [place] [address] Apr, [facility] [address] [facility] [id number] [place] [address] Apr, [facility] [place] [facility] [address] [id number] [place] [address] Apr, [facility] [address] [facility] [id number] [place] [address] Apr, [facility] [place] [facility] [address] [facility] [id number] [place] [address] Mar, [facility] [address] [id number], [place] [address] Mar, [facility] [place] [facility] [address] [id number], [place] [address] Mar, [facility] [address] [facility] [id number], [place] [address] Mar, [facility] [place] [facility] [address] [id number], [place] [address] Mar, [facility] [address] [id number], [place] [address] Mar, [facility] [place] [facility] [address] [id number], [place] [address] Mar, [facility] [place] [facility] [address] [id number], [place] [address] Mar, [facility] [place] [facility] [address] [facility] [id number], [place] [address] Mar, [facility] [place] [facility] [address] [facility] [id number], [place] [address] Mar, [facility] [place] [facility] [address] [id number] [place] [address] 05 Mar, 2013 [facility] [place] [facility] [address] [id number] [place] [address] 05 Mar, 2013 [facility] [place] [facility] [address] [id number] [place] [address] Feb, [facility] [place] [facility] [address] [id number] [place] [address] 18 Jan, 2013 [facility] [place] [facility] [address] [id number] [place] [address] 17 Jan, 2013 [facility] [place] [facility] [address] [id number] [place] [address] 06 Jan, 2013 [facility] [place] [facility] [address] [id number] [place] [address] 04 Jan, 2013 [facility] [place] [facility] [address] [id number] [place] [address] Jan, [facility] [place] [facility] [address] [id number] [place] [address] Dec, [facility] [place] [facility] [address] [id number] [place] [address] Dec, [facility] [place] [facility] [address] [id number] [place] [address] Dec, [facility] [place] [facility] [address] [id number] [place] [address] Dec, [facility] [place] [facility] [address] [id number] [place] [address] Dec, [facility] [place] [facility] [address] [id number] [place] [address] Dec, [facility] [place] [facility] [address] [id number] [place] [address] Dec, [facility] [place] [facility] [address] [id number] [place] [address] Dec, [facility] [place] [facility] [address] [id number] [place] [address] Nov, [facility] [place] [facility] [address] [id number] [place] [address] Nov, [facility] [place] [facility] [address] [facility] [id number] [place] [address] Nov, [facility] [place] [facility] [address] [facility] [id number] [place] [address] Nov, [facility] [place] [facility] [address] [id number] [place] [address] Nov, [facility] [place] [facility] [address] [facility] [id number] [place] [address] Nov, [facility] [place] [facility] [address] [facility] [id number] [place] [address] Oct, [facility] [address] [id number] [id number] Oct, [facility] [address] [id number][place] [id number] Oct, [facility] [address] [id number][place] [id number] Oct, [facility] [address] [facility] [id number] [id number] Oct, [facility] [place] [facility] [address] [facility] [id number] [place] [address] Oct, [facility] [place] [facility] [address] [facility] [id number], [place] [address] Oct, [facility] [place] [facility] [address] [facility] [id number] [place] [address] Oct, [facility] [place] [facility] [address] [facility] [id number] [place] [address] Oct, [facility] [place] [facility] [address] [facility] [id number], [place] [address] Oct, [facility] [place] [facility] [address] [id number] [place] [address] Oct, [facility] [address] [id number] [place] [address] September, [facility] [address] [id number] [place] [address] Aug, [facility] [address] [id number] [place] [address] Aug, [facility] [address] [id number] [place] [address] Aug, [facility] [address] [id number] [place] [address] Aug, [facility] [address] [id number] [place] [address] Jul, [facility] [place] [facility] [address] [id number] [place] [address] Jul, [facility] [address] [id number] [place] [address] Jul, [facility] [address] [id number] [place] [address] Jul, [facility] [place] [facility] [address] [id number] [place] [address] Jul, [facility] [place] [facility] [address] [id number], [place] [address] Jun, [facility] [place] [facility] [address] [id number] [place] [address] Jun, [facility] [place] [facility] [address] [id number] [place] [address] Jun, [facility] [place] [facility] [address] [id number] [place] [address] May, [facility] [place] [facility] [address] [id number], [place] [address] 24 May, 2012 [facility] [address] [id number] [place] [address] 14 May, 2012 [facility] [place] [facility] [address] [id number] [place] [address] May, [facility] [address] [facility] [id number] [place] [address] May, [facility] [place] [facility] [address] [id number] [place] [address] May, [facility] [address] [id number] [place] [address] 18 Apr, 2012 [facility] [place] [facility] [address] [id number] [place] [address] 18 Apr, 2012 [facility] [address] [facility] [id number] [place] [address] Apr, [facility] [place] [facility] [address] [id number] [place] [address] Apr, [facility] [address] [facility] [id number] [place] [address] Apr, [facility] [place] [facility] [address] [facility] [id number] [place] [address] Apr, [facility] [place] [facility] [address] [id number] [place] [address] Apr, [facility] [place] [facility] [address] [id number] [place] [address] Mar, [facility] [place] [facility] [address] [id number] [place] [address] Mar, [facility] [place] [facility] [address] [id number] [place] [address] Mar, [facility] [place] [facility] [address] [facility] [id number] [place] [address] Mar, [facility] [place] [facility] [id number], [place] [address] Jan, [facility] [id number], [place] [address] Jan, [facility] [id number], [place] [address] Jan, [facility] [id number], [place] [address] Jan, [facility] [id number] [id number] Dec, [facility] [id number], [place] [address] Dec, [facility] [id number] [id number] Dec, [facility] [id number], [place] [address] Dec, [facility] [id number], [place] [address] Dec, [facility] [id number], [place] [address] Dec, [facility] [id number], [place] [address] Nov, [facility] [id number], [place] [address] Nov, [facility] [id number], [place] [address] Nov, IMMUNIZATIONS No Known Immunizations SOCIAL HISTORY Never Assessed REASON FOR VISIT EMR-[facility] PLAN OF CARE VITAL SIGNS MEDICATIONS Medication Instructions Dosage Frequency Start Date End Date Duration Status Helidac 250-500-262.4 mg 1 PKTs by Oral route 4 times per day for 14 day(s) Nov, Active Promethazine-Codeine 6.25-10 mg/5 mL 5 mL by Oral route every 4 hours for 5 day(s) Jul, Active levothyroxine 137 mcg 1 tablet by Oral route 1 time per day May, Active Keflex 250 mg 2 capsule by Oral route 2 times per day for 10 days May, Active Tylenol Extra Strength 500 mg PRN Nov, Active DuoNeb 0.5 mg-3 mg(2.5 mg base)/3 mL inhale 3 milliliters by nebulization route 4 times per day May, Active Albuterol Sulfate 90 mcg/actuation inhale 1 puff by inhalation route every 4- 6 hours as needed Jun, Active Omeprazole 20 mg 1 Capsule before a meal 2 times per day take 30 min before Jan, Active Tessalon Perles 100 mg 1 capsule by Oral route 3 times per day PRN Jul, Active Pyridium 100 mg 1 tablet by Oral route 3 times per day for 3 day(s) Dec, Active Mirena 20 mcg/24 hr 1 Jul, Active tramadol 50 mg take 1 tablet (50 mg) by oral route every 4-6 hours as needed PRN pain Dec, Active Bactrim DS 800-160 mg 1 tablet by Oral route 2 times per day for 10 day(s) Oct, Active Doxycycline Hyclate 100 mg 1 tablet by Oral route 2 times per day for 10 days Apr, Active Diflucan 100 mg 1 tablet by Oral route 1 time per day Dec, Active Nitrofurantoin Macrocrystal 100 mg 1 capsule by Oral route 2 times per day for 7 day(s) Jan, Active Hydrocodone-Acetaminophen 5-325 mg take 1 tablet by Oral route every 4 hours as needed for pain September, Active Albuterol Sulfate 2.5 mg /3 mL (0.083 %) 1 Each by Inhalation route every 4 hours for cough and wheezePRNfor wheezing or cough Nov, Active Naproxen 500 mg take 1 tablet by Oral route 1 time per day with food PRN Mar, Active Xarelto 20 mg take 1 tablet (20 mg) by oral route once daily with the evening meal September, Active RESULTS No Results PROCEDURES No Known [...] asthma(493.90) Medical History Near syncope Medical History retirement current use of anticoagulant Medical History Renal [...] Stent placed 08/19/2017 Hospitalization History Syncope- [facility] 12/2017 Hospitalization History heart cath ( 06/23/18-06/25/2018) 06/23/2018
--- OUTSIDE RECORDS SUMMARY | 2018-11-13 20:11 | XMS REPORT ---
Author Author NEVA HU Organization [facility] Address [address] [place] [address] Care Team Providers Care Dial Equipment Engineer Name Role Phone DAVIS HUTA Unavailable PROBLEMS Type Condition ICD9-CM Code QNP52-LV Code Onset Dates Condition Status SNOMED Code Problem Shortness of breath R06.02 Apr, 0 185549055 Problem Unspecified hypothyroidism E03.9 0 29127254 Problem Generalized anxiety disorder F41.1 Apr, 0 18107018 Problem Esophageal reflux K21.9 0 686027927 Problem Dyslipidemia E78.5 12 Oct, 2017 0 348666211 Problem Osteoarthritis of right knee M17.11 13 May, 2009 0 907369696 Problem Unspecified sleep apnea G47.30 0 91451362 Problem Morbid obesity with BMI of 50.0-59.9, adult Z68.43 Active 016660701 Problem Migraine with aura and without status migrainosus, not intractable G43.109 Active 8000593 Problem Pulmonary embolus I26.99 13 Oct, 2011 0 34310584 Problem Morbid obesity E66.01 Active 023890811 Problem Nonintractable migraine G43.009 08 Oct, 2015 0 448187307 Problem Hypothyroidism E03.9 Active 04861515 Problem Renal stones N20.0 Active 84293596 Problem Coronary artery disease I25.10 Active 38492856 Problem Hyperlipidemia LDL goal <70 E78.5 Active 14627668 ALLERGIES Substance Reaction Event Type Date Status Amoxicillin hives Drug Allergy Jul, Active Adhesive Unknown Non Drug Allergy Jul, Active Nexium anaphylaxis Drug Allergy Jul, Active Tape Unknown Non Drug Allergy Jul, Active Levothyroxine Sodium rash Drug Allergy Jul, Active Honey Bee Venom Unknown Drug Allergy Jul, Active Dexamethasone nausea and vomiting Drug Allergy Jul, Active Azithromycin hives Drug Allergy Jul, Active Methylprednisolone nausea and vomiting Drug Allergy Jul, Active Lipitor weaknesss, dizziness, dyspnea Drug Allergy Jul, Active Phenergan hallucinations Drug Allergy Jul, Active ENCOUNTERS Encounter Location Date Diagnosis [place] [id number] [place] [address] Oct, [facility] [address] [address] Aug, Right foot pain M79.671 and Morbid obesity E66.01 [place] [address] [address] Jul, Right foot pain M79.671 and Morbid obesity E66.01 [facility] [address] [address] Jul, Injury of right foot, initial encounter S99.921A and Morbid obesity E66.01 [place] [id number] [place] [address] Jul, Recurrent syncope R55 and Morbid obesity E66.01 [place] [address] [address] Jul, [place] [id number] [place] [address] Jun, Hematuria, unspecified type R31.9 and BMI 50.0-59.9, adult Z68.43 [place] [id number] [place] [address] Jun, [address] [address] 04 Jun, 2018 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 [facility] [id number] [place] [address] May, Ankle pain, right M25.571 and BMI 50.0-59.9, adult Z68.43 [place] [id number] [place] [address] May, [place] [id number] [place] [address] May, [facility] [address] [address] Apr, [facility] [id number] [place] [address] Apr, [place] [address] [address] Apr, [facility] [address] [address] Apr, BMI 50.0-59.9, adult Z68.43 and Weakness R53.1 [place] [address] [address] Apr, [facility] [address] [address] Apr, Dysuria R30.0 ; Hematuria R31.9 ; Renal lithiasis N20.0 and BMI 50.0- 59.9, adult Z68.43 [place] [address] [address] Apr, [place] [id number] [place] [address] Apr, [place] [id number] [place] [address] Apr, Hypothyroidism E03.9 [place] [id number] [place] [address] Apr, Burning with urination R30.0 ; Type 2 diabetes mellitus with diabetic neuropathic arthropathy, 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9, adult Z68.43 [facility] [id number] [place] [address] 04 Jan, 2018 Congestion of upper respiratory tract J98.8 and BMI 50.0-59.9, adult Z68.43 [place] [id number] [place] [address] Dec, Type 2 diabetes mellitus with diabetic neuropathic arthropathy, 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 ; Morbid obesity with BMI of 50.0- 59.9, adult Z68.43 ; Hypothyroidism E03.9 ; Coronary artery disease I25.10 ; Hyperlipidemia LDL goal <70 E78.5 ; Right lower quadrant abdominal pain R10.31 and Acute cystitis with hematuria N30.01 [facility] [address] [place] [address] Dec, Migraine with aura and without status migrainosus, not intractable G43.109 ; Dehydration symptoms R63.8 and BMI 50.0-59.9, adult Z68.43 [place] [address] [address] Oct, [place] [id number] [place] [address] Oct, [place] [id number] [place] [address] Oct, [place] [id number] [place] [address] September, [place] [address] [place] [address] September, Type 2 diabetes mellitus with diabetic neuropathic arthropathy, 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 ; Hyperlipidemia, unspecified hyperlipidemia type E78.5 ; Personal history of pulmonary embolism Z86.711 ; Coronary artery disease I25.10 and Hypothyroidism E03.9 [facility] [id number] [place] [address] September, [place] [id number] [place] [address] Aug, Type 2 diabetes mellitus with diabetic [...] without aura and with status migrainosus G43.011 [place] [id number] [place] [address] Aug, [place] [id number] [place] [address] Aug, [place] [id number] [place] [address] Jul, Renal stones N20.0 [facility] [id number] [place] [address] Jun, Back pain M54.9 ; Kidney stones N20.0 and BMI 50.0-59.9, adult Z68.43 [place] [id number] [place] [address] Jun, [facility] [id number] [place] [address] Apr, [place] [id number] [place] [address] 15 Apr, 2017 [place] [address] [address] Apr, Right foot pain M79.671 ; Acute gout involving toe of right foot, 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 and Arthritis M19.90 [place] [address] [address] 06 Apr, 2017 Gastroesophageal reflux disease without esophagitis K21.9 [place] [address] [address] 16 Mar, 2017 Hypothyroidism, unspecified E03.9 [place] [address] [address] Feb, [place] [address] [address] 25 Jan, 2017 Cervicalgia of djbmdlcm-krjkdry-wxafl region M54.2 and Persistent headaches R51 [place] [id number] [place] [address] 20 Jan, 2017 [place] [id number] [place] [address] 12 Jan, 2017 Intractable migraine without aura and with status migrainosus G43.011 ; Cervical spine pain M54.2 ; Hyperlipidemia, unspecified hyperlipidemia type E78.5 ; Hypothyroidism E03.9 and Metabolic syndrome E88.81 [place] [id number] [place] [address] 11 Jan, 2017 Hypothyroidism, unspecified E03.9 [place] [id number] [place] [address] Dec, Hypothyroidism, unspecified E03.9 [place] [id number] [place] [address] Dec, Hypothyroidism E03.9 [place] [address] [address] Nov, Laceration of left great toe w/o foreign body w/o damage to nail, initial encounter S91.112A [facility] [place] [id number] [place] [address] Oct, Pain in left knee M25.562 and Arthritis M19.[address] [address] Oct, Hypothyroidism, unspecified E03.9 and Hyperlipidemia, unspecified hyperlipidemia type E78.[address] [address] Oct, Gastroesophageal reflux disease without esophagitis K21.9 [place] [id number] [place] [address] 14 Oct, 2016 Metabolic syndrome E88.81 ; Personal history of pulmonary embolism Z86.711 ; Other specified hypothyroidism E03.8 and Hyperlipidemia, unspecified hyperlipidemia type E78.5 [place] [id number] [place] [address] 13 Oct, 2016 Personal history of pulmonary embolism Z86.711 ; Dysuria R30.0 ; Metabolic syndrome E88.81 ; Other specified hypothyroidism E03.8 ; Hyperlipidemia, unspecified hyperlipidemia type E78.5 and Morbid obesity with BMI of 50.0-59.9, adult Z68.43 [place] [id number] [place] [address] September, [facility] [place] [id number] [place] [address] September, Wrist pain, left M25.532 and Acute pain of left knee M25.[address] [address] Jul, Dysuria R30.0 [place] [id number] [place] [address] Jul, Dysuria R30.0 [place] [id number] [place] [address] 16 Jul, 2016 Left lower quadrant pain R10.[address] [address] 14 Jul, [address] [address] 09 Jul, 2016 Coronary artery disease I25.10 ; Family history of diabetes mellitus Z83.3 ; Morbid obesity with BMI of 50.0-59.9, adult Z68.43 ; Metabolic syndrome E88.81 ; Personal history of pulmonary embolism Z86.711 ; Gastroesophageal reflux disease without esophagitis K21.9 ; Hypothyroidism, unspecified E03.9 ; Hyperlipidemia, unspecified hyperlipidemia type E78.5 and Left lower quadrant pain R10.32 [facility] [address] [address] 09 Jul, 2016 [facility] [address] [address] 08 Jul, 2016 Morbid obesity with BMI of 50.0-59.9, adult Z68.43 [facility] [address] [address] 07 Jul, 2016 Generalized abdominal pain R10.84 [facility] [address] [address] 02 Jun, 2016 Muscle strain of right upper back, initial encounter S29.012A [facility] [address] [address] May, Foreign body (FB) in soft tissue M79.[address] [address] Mar, Hypothyroidism, unspecified E03.9 and Arthritis M19.[address] [address] Feb, Coronary artery disease I25.10 ; Morbid obesity with BMI of 50.0- 59.9, adult Z68.43 ; Metabolic syndrome E88.81 ; Gastroesophageal reflux disease without esophagitis K21.9 ; Hypothyroidism, unspecified E03.9 ; Personal history of pulmonary embolism Z86.711 and Hyperlipidemia, unspecified hyperlipidemia type E78.5 [place] [id number] [place] [address] Feb, [facility] [address] [address] Jan, Acute right-sided thoracic back pain M54.6 [place] [address] [address] Jan, Acute pain of left knee M25.562 [place] [id number] [place] [address] Dec, Dysuria R30.0 ; Metabolic syndrome E88.81 ; Acute pain of left knee M25.562 ; Acute cystitis with hematuria N30.01 and Acute left eye pain H57.12 [place] [id number] [place] [address] Dec, [place] [address] [address] Dec, [place] [id number] [place] [address] Dec, Hypothyroidism, unspecified E03.9 [place] [id number] [place] [address] Dec, [place] [address] [address] Nov, Peripheral edema R60.9 and Acute pain of left knee M25.562 [facility] [id number] [place] [address] September, [place] [address] [address] September, Metabolic syndrome E88.81 and Allergy, subsequent encounter T78.40XD [facility] [address] [place] [id number] [place] [address] September, Muscle strain T14.8 [place] [id number] [place] [address] Aug, Chest pressure R07.89 ; Metabolic syndrome E88.81 ; Morbid obesity with BMI of 50.0-59.9, adult Z68.43 ; Esophageal reflux 530.81 and Shortness of breath R06.02 [place] [address] [address] Aug, [place] [address] [address] Aug, [place] [address] [address] Aug, Hypothyroidism, unspecified E03.9 [place] [address] [address] Aug, Routine health maintenance Z00.00 [facility] [place] [id number] [place] [address] Aug, [place] [id number] [place] [address] 31 Jul, 2015 Routine health maintenance Z00.00 ; Family history of diabetes mellitus Z83.3 ; Family history of cancer Z80.9 and Morbid obesity with BMI of 50.0- 59.9, adult Z68.43 [facility] [place] [id number] [place] [address] Jul, Allergic rhinitis J30.9 and Postnasal drip R09.82 [place] [address] [address] 18 Jul, 2015 Influenza J11.1 [facility] [place] [address] [place] [address] Jul, Dysuria R30.0 [facility] [address], [place] [address] Apr, [facility] [address] [place] [address] Mar, Acute upper respiratory infection, unspecified J06.9 and Hypothyroidism E03.9 [facility] [address] [address] Mar, [facility] [address] [place] [address] [id number] [place] [address] Feb, Coronary artery disease I25.10 [facility] [address] [place] [address] Feb, Left foot pain M79.672 [facility] [address] [place] [address] Jan, UTI (urinary tract infection) 599.0 [facility] [address], [place] [address] Jan, Urinary tract infection, site not specified 599.0 [facility] [address], [place] [address] Jan, Urinary tract infection, site not specified 599.0 [facility] [address], [place] [address] Jan, [facility] [address] [place] [id number] [address] Dec, Headache 784.0 [facility] [address], [place] [address] Dec, Urinary tract infection, site not specified 599.0 [facility] [address], [place] [address] Dec, Urinary tract infection, site not specified 599.0 [place] [address], [place] [address] Dec, Urinary tract infection, site not specified 599.0 [facility] [address], [place] [address] Nov, Unspecified sleep apnea 780.57 ; Encounter for long-term (current) use of anticoagulants V58.61 ; Routine general medical examination at health care facility V70.0 and Arthritis of both knees 716.96 [facility] [address], [place] [address] September, Cat bite of hand 882.0 and Rectal bleeding 569.3 [facility] [address] [place] [id number] [place] [address] Aug, [facility] [address] [place] [id number] [place] [address] Aug, [facility] [id number] [address] Jul, [facility] [address], [place] [address] Jul, [facility] [address], [place] [address] Jul, [facility] [address], [place] [address] Jul, [facility] [address], [place] [address] Jul, [facility] [address], [place] [address] Jul, [facility] [address], [place] [address] Jul, [facility] [address], [place] [address] Jul, [facility] [address] [place] [id number] [place] [address] [place] [address] May, [facility] [place] [facility] [address] [id number] [place] [address] May, [facility] [place] [facility] [address] [id number] [place] [address] May, [facility] [place] [facility] [address] [id number] [place] [address] May, [facility] [place] [facility] [address] [id number] [place] [address] May, [facility] [place] [facility] [address] [id number] [place] [address] May, [facility] [place] [facility] [address] [id number] [place] [address] May, [facility] [place] [facility] [address] [id number] [place] [address] Mar, [facility] [place] [facility] [address] [id number] [place] [address] Mar, [facility] [place] [facility] [address] [id number] [place] [address] 08 Jan, 2013 [facility] [place] [facility] [address] [id number] [place] [address] 08 Jan, 2013 [facility] [place] [facility] [address] [id number] [place] [address] 08 Sep, 2013 [facility] [place] [facility] [address] [id number] [address] 08 Sep, 2013 [facility] [place] [facility] [address] [id number] [place] [address] 05 Jan, 2013 [facility] [place] [facility] [address] [id number] [place] [address] 05 Jan, 2013 [facility] [place] [facility] [address] [id number] [address] 18 Dec, 2013 [facility] [place] [facility] [address] [id number] [place] [address] Dec, [facility] [place] [facility] [address] [id number] [place] [address] Dec, [facility] [place] [facility] [address] [id number] [place] [address] Dec, [facility] [place] [facility] [address] [id number] [place] [address] Dec, [facility] [place] [facility] [address] [id number] [place] [address] Dec, [facility] [place] [facility] [address] [id number] [place] [address] Dec, [facility] [place] [facility] [address] [id number] [place] [address] Dec, [facility] [place] [facility] [address] [id number] [place] [address] Dec, [facility] [place] [facility] [address] [id number] [place] [address] Dec, [facility] [place] [facility] [address] [id number] [place] [address] Nov, [facility] [place] [facility] [address] [id number] [place] [address] Nov, [facility] [place] [facility] [address] [id number] [place] [address] September, [facility] [place] [facility] [address] [id number] [place] [address] September, [facility] [place] [facility] [address] [id number] [place] [address] September, [facility] [place] [facility] [address] [id number] [place] [address] September, [facility] [place] [facility] [address] [id number] [place] [address] Aug, [facility] [place] [facility] [address] [id number] [place] [address] Aug, [facility] [place] [facility] [address] [id number] [place] [address] Aug, [facility] [place] [facility] [address] [id number] [place] [address] Aug, [facility] [place] [facility] [address] [id number] [place] [address] Aug, [facility] [place] [facility] [address] [id number] [place] [address] Aug, [facility] [place] [facility] [address] [id number] [place] [address] Aug, [facility] [place] [facility] [address] [id number] [place] [address] Aug, [facility] [place] [facility] [address] [id number] [place] [address] Aug, [facility] [place] [facility] [address] [id number] [place] [address] Aug, [facility] [place] [facility] [address] [id number] [place] [address] Aug, [facility] [place] [facility] [address] [id number] [place] [address] Aug, [facility] [place] [facility] [address] [id number] [address] Jul, [facility] [place] [facility] [address] [id number] [place] [address] Jul, [facility] [place] [facility] [address] [id number] [place] [address] Jul, [facility] [place] [facility] [address] [id number] [place] [address] Jul, [facility] [place] [facility] [address] [id number] [place] [address] 06 Jul, 2013 [facility] [place] [facility] [address] [id number] [place] [address] 06 Jul, 2013 [facility] [place] [facility] [address] [id number] [place] [address] Jul, [facility] [place] [facility] [address] [id number] [place] [address] Jul, [facility] [place] [facility] [address] [id number] [place] [address] Jul, [facility] [place] [facility] [address] [id number] [place] [address] Jul, [facility] [place] [facility] [address] [id number] [place] [address] Jun, [facility] [place] [facility] [address] [facility] [id number] [place] [address] Jun, [facility] [place] [facility] [address] [facility] [id number] [place] [address] 17 Jun, 2013 [facility] [place] [facility] [address] [facility] [id number] [place] [address] 17 Jun, 2013 [facility] [place] [facility] [address] [facility] [id number] [place] [address] 13 Jun, 2013 [facility] [place] [facility] [address] [facility] [id number] [place] [address] Jun, [facility] [place] [facility] [address] [id number] [place] [address] Jun, [facility] [place] [facility] [address] [id number] [place] [address] Jun, [facility] [place] [facility] [address] [facility] [id number] [place] [address] 04 Jun, 2013 [facility] [place] [facility] [address] [facility] [id number] [place] [address] Jun, [facility] [place] [facility] [address] [id number] [place] [address] Jun, [facility] [place] [facility] [address] [id number] [place] [address] Jun, [facility] [place] [facility] [address] [id number] [place] [address] May, [facility] [place] [facility] [address] [id number] [place] [address] May, [facility] [place] [facility] [address] [id number] [place] [address] May, [facility] [place] [facility] [address] [id number] [place] [address] May, [facility] [place] [facility] [address] [id number] [place] [address] May, [facility] [place] [facility] [address] [id number] [place] [address] May, [facility] [place] [facility] [address] [id number] [place] [address] May, [facility] [place] [facility] [address] [id number] [place] [address] May, [facility] [place] [facility] [address] [id number] [address] May, [facility] [place] [facility] [address] [id number], [place] [address] May, [facility] [place] [facility] [address] [id number], [place] [address] May, [facility] [place] [facility] [address] [id number], [place] [address] May, [facility] [place] [facility] [address] [id number] [place] [address] May, [facility] [place] [facility] [address] [id number] [place] [address] May, [facility] [address] [id number] [place] [address] May, [facility] [address] [id number] [place] [address] Apr, [facility] [address] [id number] [place] [address] Apr, [facility] [address] [id number] [place] [address] Apr, [facility] [address] [id number] [place] [address] Apr, [facility] [address] [id number] [place] [address] Mar, [facility] [address] [id number] [place] [address] Mar, [facility] [address] [id number] [place] [address] Mar, [facility] [address] [id number] [place] [address] Mar, [facility] [address] [id number] [place] [address] Mar, [facility] [address] [id number] [place] [address] Mar, [facility] [address] [id number] [place] [address] Mar, [facility] [place] [facility] [address] [id number] [place] [address] Mar, [facility] [address] [id number] [place] [address] Mar, [facility] [address] [id number] [place] [address] Mar, [facility] [place] [facility] [address] [id number] [place] [address] 05 Mar, 2013 [facility] [place] [facility] [address] [id number] [place] [address] Mar, [facility] [place] [facility] [address] [id number] [place] [address] Feb, [facility] [place] [facility] [address] [id number] [place] [address] 18 Jan, 2013 [facility] [place] [facility] [address] [id number] [place] [address] 17 Jan, 2013 [facility] [place] [facility] [address] [id number] [place] [address] 06 Jan, 2013 [facility] [place] [facility] [address] [id number] [place] [address] Jan, [facility] [place] [facility] [address] [id number] [place] [address] Jan, [facility] [place] [facility] [address] [id number] [place] [address] Dec, [facility] [place] [facility] [address] [id number] [place] [address] Dec, [facility] [place] [facility] [address] [id number] [place] [address] Dec, [facility] [place] [facility] [address] [id number] [place] [address] Dec, [facility] [place] [facility] [address] [id number] [place] [address] Dec, [facility] [place] [facility] [address] [id number] [place] [address] Dec, [facility] [place] [facility] [address] [id number] [place] [address] Dec, [facility] [place] [facility] [address] [id number], [place] [address] Dec, [facility] [place] [facility] [address] [id number] [place] [address] Nov, [facility] [place] [facility] [address] [facility] [id number], [place] [address] Nov, [facility] [place] [facility] [address] [id number] [place] [address] Nov, [facility] [place] [facility] [address] [facility] [id number] [place] [address] Nov, [facility] [place] [facility] [address] [id number] [place] [address] Nov, [facility] [place] [facility] [address] [facility] [id number] [place] [address] Nov, [facility] [place] [facility] [address] [facility] [id number], [place] [address] Oct, [facility] [address] [id number] [place] [id number] Oct, [facility] [address] [id number] [place] [id number] Oct, [facility] [address] [id number] [place] [id number] Oct, [facility] [address] [facility] [id number] [place] [id number] Oct, [facility] [place] [facility] [address] [facility] [id number], [place] [address] Oct, [facility] [place] [facility] [address] [facility] [id number], [place] [address] Oct, [facility] [place] [facility] [address] [facility] [id number] [place] [address] Oct, [facility] [place] [facility] [address] [facility] [id number], [place] [address] Oct, [facility] [place] [facility] [address] [facility] [id number], [place] [address] Oct, [facility] [address] [id number] [place] [address] Oct, [facility] [place] [facility] [address] [id number] [place] [address] September, [facility] [place] [facility] [address] [id number] [place] [address] Aug, [facility] [place] [facility] [address] [id number] [place] [address] Aug, [facility] [place] [facility] [address] [id number] [place] [address] Aug, [facility] [place] [facility] [address] [id number] [place] [address] Aug, [facility] [place] [facility] [address] [id number] [place] [address] Jul, [facility] [place] [facility] [address] [id number] [place] [address] Jul, [facility] [place] [facility] [address] [id number] [place] [address] Jul, [facility] [place] [facility] [address] [id number] [place] [address] Jul, [facility] [place] [facility] [address] [id number], [place] [address] Jul, [facility] [place] [facility] [address] [id number], [place] [address] Jun, [facility] [place] [facility] [address] [id number] [place] [address] Jun, [facility] [place] [facility] [address] [id number] [place] [address] Jun, [facility] [place] [facility] [address] [id number] [place] [address] May, [facility] [place] [facility] [address] [id number] [place] [address] 24 May, 2012 [facility] [address] [id number] [place] [address] 14 May, 2012 [facility] [address] [id number] [place] [address] May, [facility] [address] [id number] [place] [address] May, [facility] [address] [id number] [place] [address] May, [facility] [address] [id number] [place] [address] Apr, [facility] [address] [id number] [place] [address] 18 Apr, 2012 [facility] [address] [id number] [place] [address] Apr, [facility] [address] [id number] [place] [address] Apr, [facility] [address] [id number] [place] [address] Apr, [facility] [address] [id number] [place] [address] Apr, [facility] [address] [id number] [place] [address] Apr, [facility] [address] [id number] [place] [address] Mar, [facility] [address] [id number] [place] [address] Mar, [facility] [address] [id number] [place] [address] Mar, [facility] [address] [id number] [place] [address] Mar, [facility] [address] [id number], [place] [address] Jan, [facility] [id number], [place] [address] Jan, [facility] [id number], [place] [address] Jan, [facility] [id number], [place] [address] Jan, [facility] [id number] [place] [id number] Dec, [facility] [id number], [place] [address] Dec, [facility] [address] [id number] [address] Dec, [facility] [id number], [place] [address] Dec, [facility] [id number], [place] [address] Dec, [facility] [id number], [place] [address] Dec, [facility] [id number], [place] [address] Nov, [facility] [id number], [place] [address] Nov, [facility] [address] [id number], [place] [address] Nov, IMMUNIZATIONS No Known Immunizations SOCIAL HISTORY Never Assessed REASON FOR VISIT [facility] follow up. Dizziness/light headed on Thursday.-[employer] PLAN OF CARE Activity Details Follow Up as indicated by testing or next scheduled appt Reason: VITAL SIGNS Height 64 in 2018-07-13 Weight 303.8 lbs 2018-07-13 Temperature 98.3 degrees Fahrenheit 2018-07-13 Heart Rate 61 bpm 2018-07-13 Respiratory Rate 20 2018-07-13 Oximetry 93 % 2018-07-13 BMI 52.14 kg/m2 2018-07-13 Blood pressure systolic 110 mmHg 2018-07-13 Blood pressure diastolic 60 mmHg 2018-07-13 MEDICATIONS Medication Instructions Dosage Frequency Start Date End Date Duration Status Pravastatin Sodium 20 MG Orally Once a day 1 tablet 24h Active Macrobid 100 mg Orally every 12 hrs 1 capsule with food 12h Jun, 7 day(s) Not-Taking Plavix 75 MG Orally Once a day 1 tablet 24h Active Albuterol Sulfate 2.5 mg /3 mL (0.083 %) 1 Each by Inhalation route every 4 hours for cough and wheezePRNfor wheezing or cough Nov, Active Nitroglycerin 0.4 MG/HR Transdermal Once a day 1 patch to skin remove after 12 hours 24h Active Hydrocodone-Acetaminophen 5-325 MG Orally every 6 hrs 1 tablet as needed 6h Apr, Active Albuterol Sulfate 90 mcg/actuation Inhalation every 4 hrs inhale 1 puff by inhalation route every 4 hours as needed 4h Jun, 30 days Active Omeprazole 20 MG TAKE ONE CAPSULE BY MOUTH ONCE DAILY 30 Active Aspirin Adult Low Dose 81 MG Orally Once a day 1 tablet 24h Active Tylenol Extra Strength 500 MG Nov, Active Levothyroxine Sodium 150 MCG TAKE ONE TABLET BY MOUTH ONCE DAILY IN THE MORNING ON AN EMPTY STOMACH 30 days Active RESULTS No Results PROCEDURES Procedure Date Ordered Result Body Site [facility] VISIT ESTABLISHED PATIENT July 13, 2018 INSTRUCTIONS MEDICATIONS ADMINISTERED No Known [...] asthma(493.90) Medical History Near syncope Medical History detention current use of anticoagulant Medical History Renal [...] Stent placed 08/19/2017 Hospitalization History Syncope- [facility] 12/2017 Hospitalization History heart cath ( 06/23/18-06/25/2018) 06/23/2018
--- NOTE | 2018-11-13 20:12 | NUR ---
PT HERE WITH ADULT MALE PT SAYS IS FAMILY AFTER HESITATION. DR GOULD PT SAME TIME. PT SEEN HERE RECENTLY AND DX WITH UTI AND PLACED ON MACROBID. PT NOT BETTER. PT C/O BLOOD IN UA AND PAIN WITH UA. RELATES UA NORMAL THEN CHANGED TO UA LESS THEN USUAL. PT DENIES ABD PAIN THEN C/O ABD PAIN. RELATED NAUSEA EARLIER NONE NOW AND DENIES V/D. DENIES DYSPNEA AND NO ACUTE SIGHNS OF DYSPNEA NOTED.PT TO BATHROOM FOR UA. DONE [facility] PT AT 2018.
--- OUTSIDE RECORDS SUMMARY | 2018-11-13 20:12 | XMS REPORT ---
Author Author Migration, Doctor Organization [facility] Address Unknown Phone Unavailable Care Team Providers Care Towel Hemmer Name Role Phone Migration, Doctor Unavailable Unavailable PROBLEMS Type Condition ICD9-CM Code TKB36-BF Code Onset Dates Condition Status SNOMED Code Problem Shortness of breath R06.02 Apr, 0 030840242 Problem Unspecified hypothyroidism E03.9 0 04296601 Problem Generalized anxiety disorder F41.1 Apr, 0 21774217 Problem Esophageal reflux K21.9 0 030065507 Problem Dyslipidemia E78.5 Oct, 0 529024379 Problem Osteoarthritis of right knee M17.11 13 May, 2009 0 688635196 Problem Unspecified sleep apnea G47.30 0 97132132 Problem Morbid obesity with BMI of 50.0-59.9, adult Z68.43 Active 390291663 Problem Migraine with aura and without status migrainosus, not intractable G43.109 Active 9336519 Problem Pulmonary embolus I26.99 13 Oct, 2011 0 70950350 Problem Morbid obesity E66.01 Active 982871589 Problem Nonintractable migraine G43.009 08 Oct, 2015 0 697656554 Problem Hypothyroidism E03.9 Active 83157856 Problem Renal stones N20.0 Active 59638310 Problem Coronary artery disease I25.10 Active 12705648 Problem Hyperlipidemia LDL goal <70 E78.5 Active 56284227 ALLERGIES No Information ENCOUNTERS Encounter Location Date Diagnosis [facility] [id number] [address] Oct, [facility] [address], [place] [address] Aug, Right foot pain M79.671 and Morbid obesity E66.01 [facility] [id number] [address] Jul, Right foot pain M79.671 and Morbid obesity E66.01 [facility] [address] [address] 12 Jul, 2018 Injury of right foot, initial encounter S99.921A and Morbid obesity E66.01 [facility] [id number] [place] [address] 05 Jul, 2018 Recurrent syncope R55 and Morbid obesity E66.01 [place] [id number] [place] [address] 04 Jul, 2018 [place] [id number] [place] [address] Jun, Hematuria, unspecified type R31.9 and BMI 50.0-59.9, adult Z68.43 [place] [id number] [place] [address] 07 Jun, [address] [address] 04 Jun, 2018 jail current use of anticoagulant Z79.01 [facility] [place] [id number] [place] [address] May, Ankle pain, right M25.571 and BMI 50.0-59.9, adult Z68.43 [place] [address] [place] [address] May, [place] [id number] [place] [address] May, [place] [id number] [place] [address] Apr, [place] [id number] [place] [address] Apr, [place] [id number] [place] [address] Apr, [facility] [id number] [place] [address] Apr, BMI 50.0-59.9, adult Z68.43 and Weakness R53.1 [place] [id number] [place] [address] Apr, 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 ; Acute bilateral low back pain without sciatica M54.5 and BMI 50.0-59.9, adult Z68.43 [place] [id number] [place] [address] Mar, Hypothyroidism E03.9 [place] [id number] [place] [address] Feb, [facility] [id number] [place] [address] Jan, [place] [address] [address] Jan, Acute non-recurrent maxillary sinusitis J01.00 and BMI 50.0-59.9, adult Z68.43 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 [address] [address] Dec, Migraine with aura and without status migrainosus, not intractable G43.109 ; Dehydration symptoms R63.8 and BMI 50.0-59.9, adult Z68.43 [place] [address] [address] Oct, [place] [address] [address] Oct, [place] [address] [address] Oct, [facility] [address] [address] September, [facility] [address] [address] September, Type 2 diabetes mellitus with diabetic neuropathic arthropathy, 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 ; Hyperlipidemia, unspecified hyperlipidemia type E78.5 ; Personal history of pulmonary embolism Z86.711 ; Coronary artery disease I25.10 and Hypothyroidism E03.9 [facility] [address] [address] September, [facility] [address] [address] Aug, Type 2 diabetes mellitus with diabetic [...] without aura and with status migrainosus G43.011 [place] [address] [address] Aug, [place] [address] [address] Aug, [place] [address] [address] Jul, Renal stones N20.0 [facility] [address] [address] 19 Jun, 2017 Back pain M54.9 ; Kidney stones N20.0 and BMI 50.0-59.9, adult Z68.43 [place] [address] [address] 19 Jun, 2017 [place] [address] [address] 18 Apr, 2017 [place] [address] [address] Apr, [place] [address] [address] 15 Apr, 2017 Right foot pain M79.671 ; Acute gout involving toe of right foot, 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 and Arthritis M19.90 [place] [address] [address] 06 Apr, 2017 Gastroesophageal reflux disease without esophagitis K21.9 [place] [address] [address] Mar, Hypothyroidism, unspecified E03.9 [place] [id number] [place] [address] Feb, [place] [address] [address] 25 Jan, 2017 Cervicalgia of idhpgfrz-vkcaeiy-cgbcw region M54.2 and Persistent headaches R51 [place] [address] [address] 20 Jan, 2017 [place] [address] [address] 12 Jan, 2017 Intractable migraine without aura and with status migrainosus G43.011 ; Cervical spine pain M54.2 ; Hyperlipidemia, unspecified hyperlipidemia type E78.5 ; Hypothyroidism E03.9 and Metabolic syndrome E88.81 [place] [address] [address] Jan, Hypothyroidism, unspecified E03.9 [place] [address] [address] Dec, Hypothyroidism, unspecified E03.9 [place] [address] [address] Dec, Hypothyroidism E03.9 [place] [address] [address] Nov, Laceration of left great toe w/o foreign body w/o damage to nail, initial encounter S91.112A [facility] [id number] [place] [address] Oct, Pain in left knee M25.562 and Arthritis M19.90 [place] [address] [address] Oct, Hypothyroidism, unspecified E03.9 and Hyperlipidemia, unspecified hyperlipidemia type E78.5 [place] [address] [place] [address] Oct, Gastroesophageal reflux disease without esophagitis K21.9 [place] [address] [address] 14 Oct, 2016 Metabolic syndrome E88.81 ; Personal history of pulmonary embolism Z86.711 ; Other specified hypothyroidism E03.8 and Hyperlipidemia, unspecified hyperlipidemia type E78.5 [place] [address] [address] 13 Oct, 2016 Personal history of pulmonary embolism Z86.711 ; Dysuria R30.0 ; Metabolic syndrome E88.81 ; Other specified hypothyroidism E03.8 ; Hyperlipidemia, unspecified hyperlipidemia type E78.5 and Morbid obesity with BMI of 50.0-59.9, adult Z68.43 [place] [address] [address] September, [facility] [address] [address] September, Wrist pain, left M25.532 and Acute pain of left knee M25.562 [place] [address] [address] Jul, Dysuria R30.0 [place] [address] [address] Jul, Dysuria R30.0 [place] [address] [address] Jul, Left lower quadrant pain R10.32 [place] [address] [address] Jul, [place] [address] [address] Jul, Coronary artery disease I25.10 ; Family history of diabetes mellitus Z83.3 ; Morbid obesity with BMI of 50.0-59.9, adult Z68.43 ; Metabolic syndrome E88.81 ; Personal history of pulmonary embolism Z86.711 ; Gastroesophageal reflux disease without esophagitis K21.9 ; Hypothyroidism, unspecified E03.9 ; Hyperlipidemia, unspecified hyperlipidemia type E78.5 and Left lower quadrant pain R10.32 [facility] [place] [id number] [place] [address] 09 Jul, 2016 [facility] [address] [address] 08 Jul, 2016 Morbid obesity with BMI of 50.0-59.9, adult Z68.43 [facility] [address] [address] 07 Jul, 2016 Generalized abdominal pain R10.84 [facility] [address] [address] 02 Jun, 2016 Muscle strain of right upper back, initial encounter S29.012A [facility] IN [address] [address] 16 May, 2016 Foreign body (FB) in soft tissue M79.[address] [address] Mar, Hypothyroidism, unspecified E03.9 and Arthritis M19.[address] [address] 13 Feb, 2016 Coronary artery disease I25.10 ; Morbid obesity with BMI of 50.0- 59.9, adult Z68.43 ; Metabolic syndrome E88.81 ; Gastroesophageal reflux disease without esophagitis K21.9 ; Hypothyroidism, unspecified E03.9 ; Personal history of pulmonary embolism Z86.711 and Hyperlipidemia, unspecified hyperlipidemia type E78.[address] [address] 10 Feb, 2016 [facility] [place] [id number] [place] [address] 12 Jan, 2016 Acute right-sided thoracic back pain M54.6 [address] [id number] [place] [address] Jan, Acute pain of left knee M25.562 [place] [address] [address] Dec, Dysuria R30.0 ; Metabolic syndrome E88.81 ; Acute pain of left knee M25.562 ; Acute cystitis with hematuria N30.01 and Acute left eye pain H57.12 [place] [id number] [place] [address] Dec, [place] [address] [address] Dec, [place] [id number] [place] [address] Dec, Hypothyroidism, unspecified E03.9 [place] [address] [address] Dec, [place] [id number] [place] [address] Nov, Peripheral edema R60.9 and Acute pain of left knee M25.562 [facility] [place] [id number] [place] [address] September, [place] [id number] [place] [address] September, Metabolic syndrome E88.81 and Allergy, subsequent encounter T78.40XD [facility] [address] [place] [id number] [place] [address] September, Muscle strain T14.8 [place] [address] [address] Aug, Chest pressure R07.89 ; Metabolic syndrome E88.81 ; Morbid obesity with BMI of 50.0-59.9, adult Z68.43 ; Esophageal reflux 530.81 and Shortness of breath R06.02 [place] [address], [place] [address] Aug, [facility] [id number] [place] [address] Aug, [facility] [id number] [place] [address] Aug, Hypothyroidism, unspecified E03.9 [facility] [address] [address] Aug, Routine health maintenance Z00.00 [facility] [id number] [place] [address] Aug, [place] [id number] [place] [address] Jul, Routine health maintenance Z00.00 ; Family history of diabetes mellitus Z83.3 ; Family history of cancer Z80.9 and Morbid obesity with BMI of 50.0- 59.9, adult Z68.43 [facility] [id number] [place] [address] Jul, Allergic rhinitis J30.9 and Postnasal drip R09.82 [place] [id number] [place] [address] 18 Jul, 2015 Influenza J11.1 [facility] [place] [id number] [place] [address] 08 Jul, 2016 Dysuria R30.0 [facility] [id number] [place] [address] Apr, [place] [id number] [place] [address] Mar, Acute upper respiratory infection, unspecified J06.9 and Hypothyroidism E03.9 [facility] [id number] [place] [address] Mar, [facility] [address] [place] [address] Feb, Coronary artery disease I25.10 [facility] [address] [place] [address] Feb, Left foot pain M79.672 [facility] [address], [place] [address] Jan, UTI (urinary tract infection) 599.0 [facility] [address] [place] [address] Jan, Urinary tract infection, site not specified 599.0 [place] [id number] [place] [address] Jan, Urinary tract infection, site not specified 599.0 [place] [address] [place] [address] Jan, [place] [address] [place] [address] Dec, Headache 784.0 [facility] [address] [place] [address] Dec, Urinary tract infection, site not specified 599.0 [place] [address] [place] [address] Dec, Urinary tract infection, site not specified 599.0 [place] [address], [place] [address] Dec, Urinary tract infection, site not specified 599.0 [place] [id number], [place] [address] Nov, Unspecified sleep apnea 780.57 ; Encounter for long-term (current) use of anticoagulants V58.61 ; Routine general medical examination at [facility] V70.0 and Arthritis of both knees 716.96 [facility] [id number] [address] September, Cat bite of hand 882.0 and Rectal bleeding 569.3 [facility] [id number] [place] [address] Aug, [facility] [address] [facility] [id number] [address] Aug, [facility] [address] [place] [address] Jul, [facility] [address] [facility] [id number], [place] [address] Jul, [facility] [address] [facility] [id number] [place] [address] Jul, [facility] [address] [facility] [id number] [place] [address] Jul, [facility] [address], [place] [address] Jul, [facility] [id number] [place] [address] Jul, [facility] [address], [place] [address] Jul, [facility] [id number] [address] Jul, [facility] [id number], [place] [address] May, [facility] [id number] [address] May, [facility] [id number], [place] [address] May, [facility] [address] [facility] [id number], [place] [address] May, [facility] [id number] [address] May, [facility] [place] [facility] [address] [id number] [place] [address] 16 May, 2014 [facility] [place] [facility] [address] [id number] [place] [address] May, [facility] [place] [facility] [address] [id number] [place] [address] Mar, [facility] [place] [facility] [address] [id number] [place] [address] Mar, [facility] [place] [facility] [address] [id number] [place] [address] 08 Jan, 2013 [facility] [place] [facility] [address] [id number] [place] [address] 08 Jan, 2013 [facility] [place] [facility] [address] [id number] [place] [address] 08 Jan, 2013 [facility] [place] [facility] [address] [id number] [place] [address] Jan, 2013 [facility] [place] [facility] [address] [id number] [place] [address] 05 Jan, 2014 [facility] [place] [facility] [address] [id number] [place] [address] Jan, 2013 [facility] [place] [facility] [address] [id number] [place] [address] Dec, [facility] [place] [facility] [address] [id number] [place] [address] Dec, [facility] [place] [facility] [address] [id number] [place] [address] Dec, [facility] [place] [facility] [address] [id number] [place] [address] Dec, [facility] [place] [facility] [address] [id number] [place] [address] Dec, [facility] [place] [facility] [address] [id number] [place] [address] Dec, [facility] [place] [facility] [address] [id number] [place] [address] Dec, [facility] [place] [facility] [address] [id number] [place] [address] Dec, [facility] [place] [facility] [address] [id number] [place] [address] Dec, [facility] [place] [facility] [address] [id number] [place] [address] Dec, [facility] [place] [facility] [address] [id number] [place] [address] Nov, [facility] [place] [facility] [address] [id number] [place] [address] Nov, [facility] [place] [facility] [address] [id number] [place] [address] September, [facility] [place] [facility] [address] [id number] [place] [address] September, [facility] [place] [facility] [address] [id number] [place] [address] September, [facility] [place] [facility] [address] [id number] [place] [address] September, [facility] [place] [facility] [address] [id number] [place] [address] Aug, [facility] [place] [facility] [address] [id number] [place] [address] Aug, [facility] [place] [facility] [address] [id number] [place] [address] Aug, [facility] [place] [facility] [address] [id number] [place] [address] Aug, [facility] [place] [facility] [address] [id number] [place] [address] Aug, [facility] [place] [facility] [address] [id number] [place] [address] Aug, [facility] [place] [facility] [address] [id number] [place] [address] 08 Aug, 2013 [facility] [place] [facility] [address] [id number] [place] [address] 08 Aug, 2013 [facility] [place] [facility] [address] [id number] [place] [address] Aug, [facility] [place] [facility] [address] [id number] [place] [address] Aug, [facility] [place] [facility] [address] [id number] [place] [address] Aug, [facility] [place] [facility] [address] [id number] [place] [address] Aug, [facility] [place] [facility] [address] [id number] [place] [address] Jul, [facility] [place] [facility] [address] [id number] [place] [address] Jul, [facility] [place] [facility] [address] [id number] [place] [address] Jul, [facility] [place] [facility] [address] [id number] [place] [address] Jul, [facility] [place] [facility] [address] [id number] [place] [address] Jul, [facility] [place] [facility] [address] [id number] [place] [address] Jul, [facility] [place] [facility] [address] [id number] [place] [address] 05 Jul, 2013 [facility] [place] [facility] [address] [id number] [place] [address] 05 Jul, 2013 [facility] [place] [facility] [address] [id number] [place] [address] Jul, [facility] [place] [facility] [address] [id number] [place] [address] Jul, [facility] [place] [facility] [address] [id number] [place] [address] Jun, [facility] [place] [facility] [address] [id number] [place] [address] Jun, [facility] [place] [facility] [address] [id number] [place] [address] Jun, [facility] [place] [facility] [address] [id number] [place] [address] Jun, [facility] [place] [facility] [address] [id number] [place] [address] Jun, [facility] [place] [facility] [address] [id number] [place] [address] Jun, [facility] [place] [facility] [address] [id number] [place] [address] Jun, [facility] [place] [facility] [address] [id number] [place] [address] Jun, [facility] [place] [facility] [address] [id number] [place] [address] Jun, [facility] [place] [facility] [address] [id number] [place] [address] Jun, [facility] [place] [facility] [address] [id number] [place] [address] Jun, [facility] [place] [facility] [address] [id number] [place] [address] Jun, [facility] [place] [facility] [address] [id number] [place] [address] May, [facility] [place] [facility] [address] [id number] [place] [address] May, [facility] [place] [facility] [address] [address] [id number] [place] [address] May, [facility] [address] [id number] [place] [address] May, [facility] [address] [id number] [place] [address] May, [facility] [address] [id number] [place] [address] May, [facility] [address] [id number] [place] [address] May, [facility] [address] [id number] [place] [address] May, [facility] [address] [id number] [place] [address] May, [facility] [address] [id number] [place] [address] May, [facility] [address] [id number] [place] [address] May, [facility] [address] [id number] [place] [address] May, [facility] [address] [id number] [place] [address] May, [facility] [address] [id number] [place] [address] May, [facility] [address] [id number] [place] [address] May, [facility] [address] [id number] [place] [address] Apr, [facility] [place] [facility] [address] [id number] [place] [address] Apr, [facility] [address] [id number] [place] [address] Apr, [facility] [place] [facility] [address] [id number] [place] [address] Apr, [facility] [place] [facility] [address] [id number] [place] [address] Mar, [facility] [place] [facility] [address] [id number] [place] [address] Mar, [facility] [place] [facility] [address] [id number] [place] [address] Mar, [facility] [place] [facility] [address] [id number] [place] [address] Mar, [facility] [place] [facility] [address] [id number] [place] [address] Mar, [facility] [place] [facility] [address] [id number] [place] [address] Mar, [facility] [place] [facility] [address] [id number], [place] [address] Mar, [facility] [place] [facility] [address] [id number] [place] [address] Mar, [facility] [place] [facility] [address] [id number], [place] [address] Mar, [facility] [place] [facility] [address] [id number], [place] [address] Mar, [facility] [place] [facility] [address] [id number], [place] [address] Mar, [facility] [place] [facility] [address] [id number], [place] [address] Mar, [facility] [place] [facility] [address] [id number], [place] [address] Feb, [facility] [place] [facility] [address] [id number], [place] [address] 18 Jan, 2013 [facility] [place] [facility] [address] [id number], [place] [address] 17 Jan, 2013 [facility] [place] [facility] [address] [id number] [place] [address] 06 Jan, 2013 [facility] [place] [facility] [address] [id number] [place] [address] 04 Jan, 2013 [facility] [place] [facility] [address] [id number] [place] [address] Jan, [facility] [place] [facility] [address] [id number] [place] [address] Dec, [facility] [place] [facility] [address] [id number] [place] [address] Dec, [facility] [place] [facility] [address] [id number] [place] [address] Dec, [facility] [place] [facility] [address] [id number] [place] [address] Dec, [facility] [place] [facility] [address] [id number] [place] [address] Dec, [facility] [place] [facility] [address] [id number] [place] [address] Dec, [facility] [place] [facility] [address] [id number] [place] [address] Dec, [facility] [place] [facility] [address] [id number] [place] [address] Dec, [facility] [place] [facility] [address] [id number] [place] [address] Nov, [facility] [place] [facility] [address] [id number] [place] [address] Nov, [facility] [place] [facility] [address] [id number] [place] [address] Nov, [facility] [place] [facility] [address] [id number] [place] [address] Nov, [facility] [place] [facility] [address] [id number], [place] [address] Nov, [facility] [place] [facility] [address] [id number], [place] [address] Nov, [facility] [place] [facility] [address] [facility] [id number], [place] [address] Oct, [facility] [address] [id number] [place] [id number] Oct, [facility] [address] [id number] [place] [id number] Oct, [facility] [address] [id number] [place] [id number] Oct, [facility] [address] [id number] [place] [id number] Oct, [facility] [place] [facility] [address] [facility] [id number], [place] [address] Oct, [facility] [place] [facility] [address] [id number], [place] [address] Oct, [facility] [place] [facility] [address] [facility] [id number], [place] [address] Oct, [facility] [place] [facility] [address] [facility] [id number], [place] [address] Oct, [facility] [place] [facility] [address] [facility] [id number], [place] [address] Oct, [facility] [place] [facility] [address] [id number], [place] [address] Oct, [facility] [place] [facility] [address] [facility] [id number], [place] [address] September, [facility] [place] [facility] [address] [id number], [place] [address] Aug, [facility] [place] [facility] [address] [facility] [id number], [place] [address] Aug, [facility] [place] [facility] [address] [id number] [place] [address] Aug, [facility] [address] [id number] [place] [address] Aug, [facility] [place] [facility] [address] [id number] [place] [address] Jul, [facility] [address] [id number] [place] [address] Jul, [facility] [place] [facility] [address] [id number] [place] [address] Jul, [facility] [address] [id number] [place] [address] Jul, [facility] [address] [id number] [place] [address] Jul, [facility] [address] [id number] [place] [address] Jun, [facility] [address] [id number] [place] [address] Jun, [facility] [address] [id number] [place] [address] Jun, [facility] [address] [id number] [place] [address] May, [facility] [address] [id number] [place] [address] May, [facility] [place] [facility] [address] [id number] [place] [address] 14 May, 2012 [facility] [place] [facility] [address] [id number] [place] [address] May, [facility] [place] [facility] [address] [id number] [place] [address] May, [facility] [place] [facility] [address] [id number] [place] [address] May, [facility] [place] [facility] [address] [id number] [place] [address] 18 Apr, 2012 [facility] [address] [id number] [place] [address] 18 Apr, 2012 [facility] [address] [id number] [place] [address] 13 Apr, 2012 [facility] [address] [id number] [place] [address] Apr, [facility] [address] [id number] [place] [address] Apr, [facility] [address] [id number] [place] [address] Apr, [facility] [address] [facility] [id number] [place] [address] Apr, [facility] [address] [id number] [place] [address] Mar, [facility] [address] [id number] [place] [address] Mar, [facility] [address] [id number] [place] [address] Mar, [facility] [address] [id number] [place] [address] Mar, [facility] [address] [id number], [place] [address] Jan, [facility] [address] [id number] [place] [address] Jan, [facility] [place] [facility] [address] [facility] [id number] [place] [address] Jan, [facility] [address] [facility] [id number], [place] [address] Jan, [facility] [place] [address] [facility] [id number][place] [id number] Dec, [facility] [address] [facility] [id number], [place] [address] Dec, [facility] [address] [facility] [id number][place] [id number] Dec, [facility] [address] [facility] [id number], [place] [address] Dec, [facility] [id number], [place] [address] Dec, [facility] [address] [id number], [place] [address] Dec, [facility] [id number], [place] [address] Nov, [facility] [address] [id number], [place] [address] Nov, [facility] [address] [id number], [place] [address] Nov, IMMUNIZATIONS No Known Immunizations SOCIAL HISTORY Never Assessed REASON FOR VISIT EMR-[facility] [place] PLAN OF CARE VITAL SIGNS MEDICATIONS Unknown [...] asthma(493.90) Medical History Near syncope Medical History jail current use of anticoagulant Medical History Renal [...] 08/19/2017 Hospitalization History Syncope- [facility] Cm 12/2017 Hospitalization History heart cath ( 06/23/18-06/25/2018) 06/23/2018
--- OUTSIDE RECORDS SUMMARY | 2018-11-13 20:12 | XMS REPORT ---
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 Name Role Phone Migration, Doctor Unavailable Unavailable PROBLEMS Type Condition ICD9-CM Code ZNC13-QN Code Onset Dates Condition Status SNOMED Code Problem Shortness of breath R06.02 Apr, 0 964544450 Problem Unspecified hypothyroidism E03.9 0 72297200 Problem Generalized anxiety disorder F41.1 Apr, 0 71651892 Problem Esophageal reflux K21.9 0 323504627 Problem Dyslipidemia E78.5 Oct, 0 381792173 Problem Osteoarthritis of right knee M17.11 13 May, 2009 0 338577961 Problem Unspecified sleep apnea G47.30 0 43403038 Problem Morbid obesity with BMI of 50.0-59.9, adult Z68.43 Active 796937234 Problem Migraine with aura and without status migrainosus, not intractable G43.109 Active 9119182 Problem Pulmonary embolus I26.99 13 Oct, 2011 0 04101061 Problem Morbid obesity E66.01 Active 091190044 Problem Nonintractable migraine G43.009 08 Oct, 2015 0 080108971 Problem Hypothyroidism E03.9 Active 25760884 Problem Renal stones N20.0 Active 76626386 Problem Coronary artery disease I25.10 Active 61357700 Problem Hyperlipidemia LDL goal <70 E78.5 Active 54260760 ALLERGIES No Information ENCOUNTERS Encounter Location Date Diagnosis [facility] [id number] [address] Oct, [facility] [address], [place] [address] Aug, Right foot pain M79.671 and Morbid obesity E66.01 [facility] [id number], [place] [address] Jul, Right foot pain M79.671 and Morbid obesity E66.01 [facility] [address], [place] [address] 12 Jul, 2018 Injury of right foot, initial encounter S99.921A and Morbid obesity E66.01 [facility] [id number] [place] [address] 05 Jul, 2018 Recurrent syncope R55 and Morbid obesity E66.01 [place] [id number] [place] [address] 04 Jul, 2018 [place] [id number] [place] [address] Jun, Hematuria, unspecified type R31.9 and BMI 50.0-59.9, adult Z68.43 [place] [id number] [place] [address] 07 Jun, [address] [address] 04 Jun, 2018 retirement current use of anticoagulant Z79.01 [facility] [place] [id number] [place] [address] May, Ankle pain, right M25.571 and BMI 50.0-59.9, adult Z68.43 [place] [id number] [place] [address] May, [place] [id number] [place] [address] May, [place] [id number] [place] [address] Apr, [place] [id number] [place] [address] Apr, [place] [id number] [place] [address] Apr, [facility] [id number] [place] [address] Apr, BMI 50.0-59.9, adult Z68.43 and Weakness R53.1 [place] [id number] [place] [address] Apr, [facility] [address] [address] Apr, Dysuria R30.0 ; Hematuria R31.9 ; Renal lithiasis N20.0 and BMI 50.0- 59.9, adult Z68.43 [place] [address] [address] Apr, [place] [address] [address] Apr, [place] [address] [address] Apr, Hypothyroidism E03.9 [place] [address] [address] 04 Apr, 2018 Burning with urination R30.0 ; Type 2 diabetes mellitus with diabetic neuropathic arthropathy, 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 ; Acute bilateral low back pain without sciatica M54.5 and BMI 50.0-59.9, adult Z68.43 [place] [id number] [place] [address] Mar, Hypothyroidism E03.9 [place] [id number] [place] [address] Feb, [facility] [id number] [place] [address] Jan, [place] [address] [address] Jan, Acute non-recurrent maxillary sinusitis J01.00 and BMI 50.0-59.9, adult Z68.43 [facility] [address] [address] Jan, Congestion of upper respiratory tract J98.8 and BMI 50.0-59.9, adult Z68.43 [place] [address] [address] Dec, Type 2 diabetes mellitus with diabetic neuropathic arthropathy, 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 ; Morbid obesity with BMI of 50.0- 59.9, adult Z68.43 ; Hypothyroidism E03.9 ; Coronary artery disease I25.10 ; Hyperlipidemia LDL goal <70 E78.5 ; Right lower quadrant abdominal pain R10.31 and Acute cystitis with hematuria N30.01 [facility] [address] [address] Dec, Migraine with aura and without status migrainosus, not intractable G43.109 ; Dehydration symptoms R63.8 and BMI 50.0-59.9, adult Z68.43 [place] [address] [address] Oct, [place] [address] [address] Oct, [place] [address] [address] Oct, [facility] [address] [address] September, [facility] [address] [address] September, Type 2 diabetes mellitus with diabetic neuropathic arthropathy, 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 ; Hyperlipidemia, unspecified hyperlipidemia type E78.5 ; Personal history of pulmonary embolism Z86.711 ; Coronary artery disease I25.10 and Hypothyroidism E03.9 [facility] [address] [address] September, [facility] [address] [address] Aug, Type 2 diabetes mellitus with diabetic [...] without aura and with status migrainosus G43.011 [place] [address] [address] Aug, [place] [address] [address] Aug, [place] [address] [address] Jul, Renal stones N20.0 [facility] [address] [address] 19 Jun, 2017 Back pain M54.9 ; Kidney stones N20.0 and BMI 50.0-59.9, adult Z68.43 [place] [address] [address] 19 Jun, 2017 [place] [address] [address] 18 Apr, 2017 [place] [address] [address] Apr, [place] [address] [address] 15 Apr, 2017 Right foot pain M79.671 ; Acute gout involving toe of right foot, 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 and Arthritis M19.90 [place] [address] [address] 06 Apr, 2017 Gastroesophageal reflux disease without esophagitis K21.9 [place] [address] [address] Mar, Hypothyroidism, unspecified E03.9 [place] [id number] [place] [address] Feb, [place] [address] [address] 25 Jan, 2017 Cervicalgia of kgnoitii-vdndlal-jueuy region M54.2 and Persistent headaches R51 [place] [address] [address] 20 Jan, 2017 [place] [address] [address] 12 Jan, 2017 Intractable migraine without aura and with status migrainosus G43.011 ; Cervical spine pain M54.2 ; Hyperlipidemia, unspecified hyperlipidemia type E78.5 ; Hypothyroidism E03.9 and Metabolic syndrome E88.81 [place] [address] [address] Jan, Hypothyroidism, unspecified E03.9 [place] [address] [address] Dec, Hypothyroidism, unspecified E03.9 [place] [address] [address] Dec, Hypothyroidism E03.9 [place] [address] [address] Nov, Laceration of left great toe w/o foreign body w/o damage to nail, initial encounter S91.112A [facility] [id number] [place] [address] Oct, Pain in left knee M25.562 and Arthritis M19.90 [place] [address] [address] Oct, Hypothyroidism, unspecified E03.9 and Hyperlipidemia, unspecified hyperlipidemia type E78.5 [place] [address] [place] [address] Oct, Gastroesophageal reflux disease without esophagitis K21.9 [place] [address] [address] 14 Oct, 2016 Metabolic syndrome E88.81 ; Personal history of pulmonary embolism Z86.711 ; Other specified hypothyroidism E03.8 and Hyperlipidemia, unspecified hyperlipidemia type E78.5 [place] [address] [address] 13 Oct, 2016 Personal history of pulmonary embolism Z86.711 ; Dysuria R30.0 ; Metabolic syndrome E88.81 ; Other specified hypothyroidism E03.8 ; Hyperlipidemia, unspecified hyperlipidemia type E78.5 and Morbid obesity with BMI of 50.0-59.9, adult Z68.43 [place] [address] [address] September, [facility] [address] [address] September, Wrist pain, left M25.532 and Acute pain of left knee M25.562 [place] [address] [address] Jul, Dysuria R30.0 [place] [address] [address] Jul, Dysuria R30.0 [place] [address] [address] Jul, Left lower quadrant pain R10.32 [place] [address] [address] Jul, [place] [address] [address] Jul, Coronary artery disease I25.10 ; Family history of diabetes mellitus Z83.3 ; Morbid obesity with BMI of 50.0-59.9, adult Z68.43 ; Metabolic syndrome E88.81 ; Personal history of pulmonary embolism Z86.711 ; Gastroesophageal reflux disease without esophagitis K21.9 ; Hypothyroidism, unspecified E03.9 ; Hyperlipidemia, unspecified hyperlipidemia type E78.5 and Left lower quadrant pain R10.32 [facility] [place] [id number] [place] [address] 09 Jul, 2016 [facility] [address] [address] 08 Jul, 2016 Morbid obesity with BMI of 50.0-59.9, adult Z68.43 [facility] [address] [address] 07 Jul, 2016 Generalized abdominal pain R10.84 [facility] [address] [address] 02 Jun, 2016 Muscle strain of right upper back, initial encounter S29.012A [facility] [address] [address] 16 May, 2016 Foreign body (FB) in soft tissue M79.[address] [address] Mar, Hypothyroidism, unspecified E03.9 and Arthritis M19.[address] [address] 13 Feb, 2016 Coronary artery disease I25.10 ; Morbid obesity with BMI of 50.0- 59.9, adult Z68.43 ; Metabolic syndrome E88.81 ; Gastroesophageal reflux disease without esophagitis K21.9 ; Hypothyroidism, unspecified E03.9 ; Personal history of pulmonary embolism Z86.711 and Hyperlipidemia, unspecified hyperlipidemia type E78.[address] [address] 10 Feb, 2016 [facility] [place] [id number] [place] [address] 12 Jan, 2016 Acute right-sided thoracic back pain M54.6 [id number] [place] [address] Jan, Acute pain of left knee M25.562 [place] [address] [address] Dec, Dysuria R30.0 ; Metabolic syndrome E88.81 ; Acute pain of left knee M25.562 ; Acute cystitis with hematuria N30.01 and Acute left eye pain H57.12 [place] [id number] [place] [address] Dec, [place] [address] [address] Dec, [place] [id number] [place] [address] Dec, Hypothyroidism, unspecified E03.9 [place] [address] [address] Dec, [place] [id number] [place] [address] Nov, Peripheral edema R60.9 and Acute pain of left knee M25.562 [facility] [address] [id number] [place] [address] September, [place] [id number] [place] [address] September, Metabolic syndrome E88.81 and Allergy, subsequent encounter T78.40XD [facility] [address] [place] [id number] [place] [address] September, Muscle strain T14.8 [place] [address] [address] Aug, Chest pressure R07.89 ; Metabolic syndrome E88.81 ; Morbid obesity with BMI of 50.0-59.9, adult Z68.43 ; Esophageal reflux 530.81 and Shortness of breath R06.02 [place] [address], [place] [address] Aug, [facility] [id number] [place] [address] Aug, [facility] [id number] [place] [address] Aug, Hypothyroidism, unspecified E03.9 [facility] [address] [address] Aug, Routine health maintenance Z00.00 [facility] [id number] [place] [address] Aug, [place] [id number] [place] [address] Jul, Routine health maintenance Z00.00 ; Family history of diabetes mellitus Z83.3 ; Family history of cancer Z80.9 and Morbid obesity with BMI of 50.0- 59.9, adult Z68.43 [facility] [id number] [place] [address] Jul, Allergic rhinitis J30.9 and Postnasal drip R09.82 [place] [id number] [place] [address] 18 Jul, 2015 Influenza J11.1 [facility] [place] [id number] [place] [address] 08 Jul, 2016 Dysuria R30.0 [facility] [id number] [place] [address] Apr, [place] [id number] [place] [address] Mar, Acute upper respiratory infection, unspecified J06.9 and Hypothyroidism E03.9 [facility] [id number] [place] [address] Mar, [facility] [address] [place] [address] Feb, Coronary artery disease I25.10 [facility] [address] [place] [address] Feb, Left foot pain M79.672 [facility] [address] [address] Jan, UTI (urinary tract infection) 599.0 [facility] [address] [place] [address] Jan, Urinary tract infection, site not specified 599.0 [place] [id number] [place] [address] Jan, Urinary tract infection, site not specified 599.0 [place] [address] [place] [address] Jan, [place] [address] [place] [address] Dec, Headache 784.0 [facility] [address] [place] [address] Dec, Urinary tract infection, site not specified 599.0 [place] [address] [place] [address] Dec, Urinary tract infection, site not specified 599.0 [place] [address], [place] [address] Dec, Urinary tract infection, site not specified 599.0 [place] [id number], [place] [address] Nov, Unspecified sleep apnea 780.57 ; Encounter for long-term (current) use of anticoagulants V58.61 ; Routine general medical examination at [facility] care facility V70.0 and Arthritis of both knees 716.96 [facility] [id number] [address] September, Cat bite of hand 882.0 and Rectal bleeding 569.3 [facility] [id number] [place] [address] Aug, [facility] [address] [facility] [id number] [address] Aug, [facility] [address] [place] [address] Jul, [facility] [address] [facility] [id number] [address] Jul, [facility] [address] [facility] [id number] [place] [address] Jul, [facility] [address] [facility] [id number] [place] [address] Jul, [facility] [address] [address] Jul, [facility] [id number] [place] [address] Jul, [facility] [address] [address] Jul, [facility] [id number] [address] Jul, [facility] [id number] [address] May, [facility] [id number] [address] May, [facility] [id number] [address] May, [facility] [address] [facility] [id number], [place] [address] May, [facility] [id number] [address] May, [facility] [place] [facility] [address] [id number] [place] [address] 16 May, 2014 [facility] [place] [facility] [address] [id number] [place] [address] May, [facility] [place] [facility] [address] [id number] [place] [address] Mar, [facility] [place] [facility] [address] [id number] [place] [address] Mar, [facility] [place] [facility] [address] [id number] [place] [address] 08 Jan, 2013 [facility] [place] [facility] [address] [id number] [place] [address] 08 Jan, 2013 [facility] [place] [facility] [address] [id number] [place] [address] 08 Jan, 2013 [facility] [place] [facility] [address] [id number] [place] [address] Jan, 2013 [facility] [place] [facility] [address] [id number] [place] [address] 05 Jan, 2014 [facility] [place] [facility] [address] [id number] [place] [address] Jan, 2013 [facility] [place] [facility] [address] [id number] [place] [address] Dec, [facility] [place] [facility] [address] [id number] [place] [address] Dec, [facility] [place] [facility] [address] [id number] [place] [address] Dec, [facility] [place] [facility] [address] [id number] [place] [address] Dec, [facility] [place] [facility] [address] [id number] [place] [address] Dec, [facility] [place] [facility] [address] [id number] [place] [address] Dec, [facility] [place] [facility] [address] [id number] [place] [address] Dec, [facility] [place] [facility] [address] [id number] [place] [address] Dec, [facility] [place] [facility] [address] [id number] [place] [address] Dec, [facility] [place] [facility] [address] [id number] [place] [address] Dec, [facility] [place] [facility] [address] [id number] [place] [address] Nov, [facility] [place] [facility] [address] [id number] [place] [address] Nov, [facility] [place] [facility] [address] [id number] [place] [address] September, [facility] [place] [facility] [address] [id number] [place] [address] September, [facility] [place] [facility] [address] [id number] [place] [address] September, [facility] [place] [facility] [address] [id number] [place] [address] September, [facility] [place] [facility] [address] [id number] [place] [address] Aug, [facility] [place] [facility] [address] [id number] [place] [address] Aug, [facility] [place] [facility] [address] [id number] [place] [address] Aug, [facility] [place] [facility] [address] [id number] [place] [address] Aug, [facility] [place] [facility] [address] [id number] [place] [address] Aug, [facility] [place] [facility] [address] [id number] [place] [address] Aug, [facility] [place] [facility] [address] [id number] [place] [address] 08 Aug, 2013 [facility] [place] [facility] [address] [id number] [place] [address] 08 Aug, 2013 [facility] [place] [facility] [address] [id number] [place] [address] Aug, [facility] [place] [facility] [address] [id number] [place] [address] Aug, [facility] [place] [facility] [address] [id number] [place] [address] Aug, [facility] [place] [facility] [address] [id number] [place] [address] Aug, [facility] [place] [facility] [address] [id number] [place] [address] Jul, [facility] [place] [facility] [address] [id number] [place] [address] Jul, [facility] [place] [facility] [address] [id number] [place] [address] Jul, [facility] [place] [facility] [address] [id number] [place] [address] Jul, [facility] [place] [facility] [address] [id number] [place] [address] Jul, [facility] [place] [facility] [address] [id number] [place] [address] Jul, [facility] [place] [facility] [address] [id number] [place] [address] 05 Jul, 2013 [facility] [place] [facility] [address] [id number] [place] [address] 05 Jul, 2013 [facility] [place] [facility] [address] [id number] [place] [address] Jul, [facility] [place] [facility] [address] [id number] [place] [address] Jul, [facility] [place] [facility] [address] [id number] [place] [address] Jun, [facility] [place] [facility] [address] [id number] [place] [address] Jun, [facility] [place] [facility] [address] [id number] [place] [address] Jun, [facility] [place] [facility] [address] [id number] [place] [address] Jun, [facility] [place] [facility] [address] [id number] [place] [address] Jun, [facility] [place] [facility] [address] [id number] [place] [address] Jun, [facility] [place] [facility] [address] [id number] [place] [address] Jun, [facility] [place] [facility] [address] [id number] [place] [address] Jun, [facility] [place] [facility] [address] [id number] [place] [address] Jun, [facility] [place] [facility] [address] [id number] [place] [address] Jun, [facility] [place] [facility] [address] [id number] [place] [address] Jun, [facility] [place] [facility] [address] [id number] [place] [address] Jun, [facility] [place] [facility] [address] [id number] [place] [address] May, [facility] [place] [facility] [address] [id number] [place] [address] May, [facility] [place] [facility] [address] [id number] [place] [address] May, [facility] [address] [id number] [place] [address] May, [facility] [address] [id number] [place] [address] May, [facility] [address] [id number] [place] [address] May, [facility] [address] [id number] [place] [address] May, [facility] [address] [id number] [place] [address] May, [facility] [address] [id number] [place] [address] May, [facility] [facility] [address] [id number] [place] [address] May, [facility] [address] [id number] [place] [address] May, [facility] [address] [id number] [place] [address] May, [facility] [address] [id number] [place] [address] May, [facility] [address] [id number] [place] [address] May, [facility] [address] [id number] [place] [address] May, [facility] [address] [id number] [place] [address] Apr, [facility] [place] [facility] [address] [id number] [place] [address] Apr, [facility] [address] [id number] [place] [address] Apr, [facility] [place] [facility] [address] [id number] [place] [address] Apr, [facility] [place] [facility] [address] [id number] [place] [address] Mar, [facility] [place] [facility] [address] [id number] [place] [address] Mar, [facility] [place] [facility] [address] [id number] [place] [address] Mar, [facility] [place] [facility] [address] [id number] [place] [address] Mar, [facility] [place] [facility] [address] [id number] [place] [address] Mar, [facility] [place] [facility] [address] [id number] [place] [address] Mar, [facility] [place] [facility] [address] [id number], [place] [address] Mar, [facility] [place] [facility] [address] [id number] [place] [address] Mar, [facility] [place] [facility] [address] [id number], [place] [address] Mar, [facility] [place] [facility] [address] [id number], [place] [address] Mar, [facility] [place] [facility] [address] [id number], [place] [address] Mar, [facility] [place] [facility] [address] [id number], [place] [address] Mar, [facility] [place] [facility] [address] [id number], [place] [address] Feb, [facility] [place] [facility] [address] [id number], [place] [address] 18 Jan, 2013 [facility] [place] [facility] [address] [id number], [place] [address] 17 Jan, 2013 [facility] [place] [facility] [address] [id number] [place] [address] 06 Jan, 2013 [facility] [place] [facility] [address] [id number] [place] [address] 04 Jan, 2013 [facility] [place] [facility] [address] [id number] [place] [address] Jan, [facility] [place] [facility] [address] [id number] [place] [address] Dec, [facility] [place] [facility] [address] [id number] [place] [address] Dec, [facility] [place] [facility] [address] [id number] [place] [address] Dec, [facility] [place] [facility] [address] [id number] [place] [address] Dec, [facility] [place] [facility] [address] [id number] [place] [address] Dec, [facility] [place] [facility] [address] [id number] [place] [address] Dec, [facility] [place] [facility] [address] [id number] [place] [address] Dec, [facility] [place] [facility] [address] [id number] [place] [address] Dec, [facility] [place] [facility] [address] [id number] [place] [address] Nov, [facility] [place] [facility] [address] [id number] [place] [address] Nov, [facility] [place] [facility] [address] [id number] [place] [address] Nov, [facility] [place] [facility] [address] [id number] [place] [address] Nov, [facility] [place] [facility] [address] [id number], [place] [address] Nov, [facility] [place] [facility] [address] [id number], [place] [address] Nov, [facility] [place] [facility] [address] [facility] [id number], [place] [address] Oct, [facility] [address] [id number] [place] [address] Oct, [facility] [address] [id number] [place] [address] Oct, [facility] [address] [id number] [place] [address] Oct, [facility] [address] [id number] [place] [id number] Oct, [facility] [place] [facility] [address] [facility] [id number], [place] [address] Oct, [facility] [place] [facility] [address] [id number], [place] [address] Oct, [facility] [place] [facility] [address] [facility] [id number], [place] [address] Oct, [facility] [place] [facility] [address] [facility] [id number], [place] [address] Oct, [facility] [place] [facility] [address] [facility] [id number], [place] [address] Oct, [facility] [place] [facility] [address] [id number], [place] [address] Oct, [facility] [place] [facility] [address] [facility] [id number], [place] [address] September, [facility] [place] [facility] [address] [id number], [place] [address] Aug, [facility] [place] [facility] [address] [facility] [id number], [place] [address] Aug, [facility] [place] [facility] [address] [id number] [place] [address] Aug, [facility] [address] [id number] [place] [address] Aug, [facility] [place] [facility] [address] [id number] [place] [address] Jul, [facility] [address] [id number] [place] [address] Jul, [facility] [place] [facility] [address] [id number] [place] [address] Jul, [facility] [address] [id number] [place] [address] Jul, [facility] [address] [id number] [place] [address] Jul, [facility] [address] [id number] [place] [address] Jun, [facility] [address] [id number] [place] [address] Jun, [facility] [address] [id number] [place] [address] Jun, [facility] [address] [id number] [place] [address] May, [facility] [address] [id number] [place] [address] May, [facility] [place] [facility] [address] [id number] [place] [address] 14 May, 2012 [facility] [place] [facility] [address] [id number] [place] [address] May, [facility] [place] [facility] [address] [id number] [place] [address] May, [facility] [place] [facility] [address] [id number] [place] [address] May, [facility] [place] [facility] [address] [id number] [place] [address] 18 Apr, 2012 [facility] [address] [id number] [place] [address] 18 Apr, 2012 [facility] [address] [id number] [place] [address] 13 Apr, 2012 [facility] [address] [id number] [place] [address] Apr, [facility] [address] [id number] [place] [address] Apr, [facility] [address] [id number] [place] [address] Apr, [facility] [address] [facility] [id number] [place] [address] Apr, [facility] [address] [id number] [place] [address] Mar, [facility] [address] [id number] [place] [address] Mar, [facility] [address] [id number] [place] [address] Mar, [facility] [address] [id number] [place] [address] Mar, [facility] [address] [id number], [place] [address] Jan, [facility] [address] [id number] [place] [address] Jan, [facility] [place] [facility] [address] [facility] [id number] [place] [address] Jan, [facility] [address] [facility] [id number], [place] [address] Jan, [facility] [address] [facility] [id number] [place] [address] Dec, [facility] [address] [facility] [id number], [place] [address] Dec, [facility] [address] [facility] [id number] [place] [address] Dec, [facility] [address] [facility] [id number], [place] [address] Dec, [facility] [id number], [place] [address] Dec, [facility] [address] [id number], [place] [address] Dec, [facility] [id number], [place] [address] Nov, [facility] [address] [id number], [place] [address] Nov, [facility] [address] [id number], [place] [address] Nov, IMMUNIZATIONS No Known Immunizations SOCIAL HISTORY Never Assessed REASON FOR VISIT EMR-[facility] [place] PLAN OF CARE [...]
--- OUTSIDE RECORDS SUMMARY | 2018-11-13 20:13 | XMS REPORT ---
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 Name Role Phone Migration, Doctor Unavailable Unavailable PROBLEMS Type Condition ICD9-CM Code IEM46-GM Code Onset Dates Condition Status SNOMED Code Problem Shortness of breath R06.02 Apr, 0 543246552 Problem Unspecified hypothyroidism E03.9 0 57443316 Problem Generalized anxiety disorder F41.1 Apr, 0 02934841 Problem Esophageal reflux K21.9 0 347215347 Problem Dyslipidemia E78.5 Oct, 0 406752436 Problem Osteoarthritis of right knee M17.11 13 May, 2009 0 659012920 Problem Unspecified sleep apnea G47.30 0 71180385 Problem Morbid obesity with BMI of 50.0-59.9, adult Z68.43 Active 721415309 Problem Migraine with aura and without status migrainosus, not intractable G43.109 Active 2225842 Problem Pulmonary embolus I26.99 13 Oct, 2011 0 14913072 Problem Morbid obesity E66.01 Active 958220168 Problem Nonintractable migraine G43.009 08 Oct, 2015 0 964625858 Problem Hypothyroidism E03.9 Active 76695303 Problem Renal stones N20.0 Active 58665169 Problem Coronary artery disease I25.10 Active 33633746 Problem Hyperlipidemia LDL goal <70 E78.5 Active 64844452 ALLERGIES No Information ENCOUNTERS Encounter Location Date Diagnosis [facility] [id number] [address] Oct, [facility] [address], [place] [address] Aug, Right foot pain M79.671 and Morbid obesity E66.01 [facility] [id number], [place] [address] Jul, Right foot pain M79.671 and Morbid obesity E66.01 [facility] [address], [place] [address] 12 Jul, 2018 Injury of right foot, initial encounter S99.921A and Morbid obesity E66.01 [facility] [id number] [place] [address] 05 Jul, 2018 Recurrent syncope R55 and Morbid obesity E66.01 [place] [id number] [place] [address] 04 Jul, 2018 [facility] [facility] [id number] [place] [address] Jun, Hematuria, unspecified type R31.9 and BMI 50.0-59.9, adult Z68.43 [place] [id number] [place] [address] 07 Jun, [address] [address] 04 Jun, 2018 prison current use of anticoagulant Z79.01 [facility] [place] [id number] [place] [address] May, Ankle pain, right M25.571 and BMI 50.0-59.9, adult Z68.43 [place] [id number] [place] [address] May, [place] [id number] [place] [address] May, [place] [id number] [place] [address] Apr, [place] [id number] [place] [address] Apr, [place] [id number] [place] [address] Apr, [facility] [id number] [place] [address] Apr, BMI 50.0-59.9, adult Z68.43 and Weakness R53.1 [place] [id number] [place] [address] Apr, [facility] [address] [address] Apr, Dysuria R30.0 ; Hematuria R31.9 ; Renal lithiasis N20.0 and BMI 50.0- 59.9, adult Z68.43 [place] [address] [address] Apr, [place] [address] [address] Apr, [place] [address] [address] Apr, Hypothyroidism E03.9 [place] [address] [address] 04 Apr, 2018 Burning with urination R30.0 ; Type 2 diabetes mellitus with diabetic neuropathic arthropathy, 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 ; Acute bilateral low back pain without sciatica M54.5 and BMI 50.0-59.9, adult Z68.43 [place] [id number] [place] [address] Mar, Hypothyroidism E03.9 [place] [id number] [place] [address] Feb, [facility] [id number] [place] [address] Jan, [place] [address] [address] Jan, Acute non-recurrent maxillary sinusitis J01.00 and BMI 50.0-59.9, adult Z68.43 [facility] [address] [address] Jan, Congestion of upper respiratory tract J98.8 and BMI 50.0-59.9, adult Z68.43 [place] [address] [address] Dec, Type 2 diabetes mellitus with diabetic neuropathic arthropathy, 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 [address] [address] 19 Jun, 2017 Back pain M54.9 ; Kidney stones N20.0 and BMI 50.0-59.9, adult Z68.43 [place] [address] [address] 19 Jun, 2017 [place] [address] [address] 18 Apr, 2017 [place] [address] [address] Apr, [place] [address] [address] 15 Apr, 2017 Right foot pain M79.671 ; Acute gout involving toe of right foot, 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 and Arthritis M19.90 [place] [address] [address] 06 Apr, 2017 Gastroesophageal reflux disease without esophagitis K21.9 [place] [address] [address] Mar, Hypothyroidism, unspecified E03.9 [place] [id number] [place] [address] Feb, [place] [address] [address] 25 Jan, 2017 Cervicalgia of ancbatvm-glwgiwi-snzze region M54.2 and Persistent headaches R51 [place] [address] [address] 20 Jan, 2017 [place] [address] [address] 12 Jan, 2017 Intractable migraine without aura and with status migrainosus G43.011 ; Cervical spine pain M54.2 ; Hyperlipidemia, unspecified hyperlipidemia type E78.5 ; Hypothyroidism E03.9 and Metabolic syndrome E88.81 [place] [address] [address] Jan, Hypothyroidism, unspecified E03.9 [place] [address] [address] Dec, Hypothyroidism, unspecified E03.9 [place] [address] [address] Dec, Hypothyroidism E03.9 [place] [address] [address] Nov, Laceration of left great toe w/o foreign body w/o damage to nail, initial encounter S91.112A [facility] [id number] [place] [address] Oct, Pain in left knee M25.562 and Arthritis M19.90 [place] [address] [address] Oct, Hypothyroidism, unspecified E03.9 and Hyperlipidemia, unspecified hyperlipidemia type E78.5 [place] [address] [place] [address] Oct, Gastroesophageal reflux disease without esophagitis K21.9 [place] [address] [address] 14 Oct, 2016 Metabolic syndrome E88.81 ; Personal history of pulmonary embolism Z86.711 ; Other specified hypothyroidism E03.8 and Hyperlipidemia, unspecified hyperlipidemia type E78.5 [place] [address] [address] 13 Oct, 2016 Personal history of pulmonary embolism Z86.711 ; Dysuria R30.0 ; Metabolic syndrome E88.81 ; Other specified hypothyroidism E03.8 ; Hyperlipidemia, unspecified hyperlipidemia type E78.5 and Morbid obesity with BMI of 50.0-59.9, adult Z68.43 [place] [address] [address] September, [facility] [address] [address] September, Wrist pain, left M25.532 and Acute pain of left knee M25.562 [place] [address] [address] Jul, Dysuria R30.0 [place] [address] [address] Jul, Dysuria R30.0 [place] [address] [address] Jul, Left lower quadrant pain R10.32 [place] [address] [address] Jul, [place] [address] [address] Jul, Coronary artery disease I25.10 ; Family history of diabetes mellitus Z83.3 ; Morbid obesity with BMI of 50.0-59.9, adult Z68.43 ; Metabolic syndrome E88.81 ; Personal history of pulmonary embolism Z86.711 ; Gastroesophageal reflux disease without esophagitis K21.9 ; Hypothyroidism, unspecified E03.9 ; Hyperlipidemia, unspecified hyperlipidemia type E78.5 and Left lower quadrant pain R10.32 [facility] [place] [id number] [place] [address] 09 Jul, 2016 [facility] [address] [address] 08 Jul, 2016 Morbid obesity with BMI of 50.0-59.9, adult Z68.43 [facility] [address] [address] 07 Jul, 2016 Generalized abdominal pain R10.84 [facility] [address] [address] 02 Jun, 2016 Muscle strain of right upper back, initial encounter S29.012A [facility] [address] [address] 16 May, 2016 Foreign body (FB) in soft tissue M79.[address] [address] Mar, Hypothyroidism, unspecified E03.9 and Arthritis M19.[address] [address] 13 Feb, 2016 Coronary artery disease I25.10 ; Morbid obesity with BMI of 50.0- 59.9, adult Z68.43 ; Metabolic syndrome E88.81 ; Gastroesophageal reflux disease without esophagitis K21.9 ; Hypothyroidism, unspecified E03.9 ; Personal history of pulmonary embolism Z86.711 and Hyperlipidemia, unspecified hyperlipidemia type E78.[address] [address] 10 Feb, 2016 [facility] [place] [id number] [place] [address] 12 Jan, 2016 Acute right-sided thoracic back pain M54.6 [address] [id number] [place] [address] Jan, Acute pain of left knee M25.562 [place] [address] [address] Dec, Dysuria R30.0 ; Metabolic syndrome E88.81 ; Acute pain of left knee M25.562 ; Acute cystitis with hematuria N30.01 and Acute left eye pain H57.12 [place] [id number] [place] [address] Dec, [place] [address] [address] Dec, [place] [id number] [place] [address] Dec, Hypothyroidism, unspecified E03.9 [place] [address] [address] Dec, [place] [id number] [place] [address] Nov, Peripheral edema R60.9 and Acute pain of left knee M25.562 [facility] [place] [id number] [place] [address] September, [place] [id number] [place] [address] September, Metabolic syndrome E88.81 and Allergy, subsequent encounter T78.40XD [facility] [address] [place] [id number] [place] [address] September, Muscle strain T14.8 [place] [address] [address] Aug, Chest pressure R07.89 ; Metabolic syndrome E88.81 ; Morbid obesity with BMI of 50.0-59.9, adult Z68.43 ; Esophageal reflux 530.81 and Shortness of breath R06.02 [place] [address], [place] [address] Aug, [facility] [id number] [place] [address] Aug, [facility] [id number] [place] [address] Aug, Hypothyroidism, unspecified E03.9 [facility] [address] [address] Aug, Routine health maintenance Z00.00 [facility] [id number] [place] [address] Aug, [place] [id number] [place] [address] Jul, Routine health maintenance Z00.00 ; Family history of diabetes mellitus Z83.3 ; Family history of cancer Z80.9 and Morbid obesity with BMI of 50.0- 59.9, adult Z68.43 [facility] [id number] [place] [address] Jul, Allergic rhinitis J30.9 and Postnasal drip R09.82 [place] [id number] [place] [address] 18 Jul, 2015 Influenza J11.[address] [facility] [place] [id number] [place] [address] 08 Jul, 2016 Dysuria R30.0 [facility] [id number] [place] [address] Apr, [place] [id number] [place] [address] Mar, Acute upper respiratory infection, unspecified J06.9 and Hypothyroidism E03.9 [facility] [id number] [place] [address] Mar, [facility] [address] [place] [address] Feb, Coronary artery disease I25.10 [facility] [address] [place] [address] Feb, Left foot pain M79.672 [facility] [address], [place] [address] Jan, UTI (urinary tract infection) 599.0 [facility] [address] [place] [address] Jan, Urinary tract infection, site not specified 599.0 [place] [id number] [place] [address] Jan, Urinary tract infection, site not specified 599.0 [place] [address] [place] [address] Jan, [place] [address] [place] [address] Dec, Headache 784.0 [facility] [address] [place] [address] Dec, Urinary tract infection, site not specified 599.0 [place] [address] [place] [address] Dec, Urinary tract infection, site not specified 599.0 [place] [address], [place] [address] Dec, Urinary tract infection, site not specified 599.0 [place] [id number], [place] [address] Nov, Unspecified sleep apnea 780.57 ; Encounter for long-term (current) use of anticoagulants V58.61 ; Routine general medical examination at [facility] V70.0 and Arthritis of both knees 716.96 [facility] [id number], [place] [address] September, Cat bite of hand 882.0 and Rectal bleeding 569.3 [facility] [id number] [place] [address] Aug, [facility] [address] [facility] [id number] [address] Aug, [facility] [address] [place] [address] Jul, [facility] [address] [facility] [id number] [address] Jul, [facility] [address] [facility] [id number] [place] [address] Jul, [facility] [address] [facility] [id number] [place] [address] Jul, [facility] [address], [place] [address] Jul, [facility] [id number] [place] [address] Jul, [facility] [address], [place] [address] Jul, [facility] [id number], [place] [address] Jul, [facility] [id number], [place] [address] May, [facility] [id number], [place] [address] May, [facility] [id number], [place] [address] May, [facility] [address] [facility] [id number], [place] [address] May, [facility] [id number], [place] [address] May, [facility] [place] [facility] [address] [id number] [place] [address] 16 May, 2014 [facility] [place] [facility] [address] [id number] [place] [address] May, [facility] [place] [facility] [address] [id number] [place] [address] Mar, [facility] [place] [facility] [address] [id number] [place] [address] Mar, [facility] [place] [facility] [address] [id number] [place] [address] 08 Jan, 2013 [facility] [place] [facility] [address] [id number] [place] [address] 08 Jan, 2013 [facility] [place] [facility] [address] [id number] [place] [address] 08 Jan, 2013 [facility] [place] [facility] [address] [id number] [place] [address] Jan, 2013 [facility] [place] [facility] [address] [id number] [place] [address] 05 Jan, 2014 [facility] [place] [facility] [address] [id number] [place] [address] Jan, 2013 [facility] [place] [facility] [address] [id number] [place] [address] Dec, [facility] [place] [facility] [address] [id number] [place] [address] Dec, [facility] [place] [facility] [address] [id number] [place] [address] Dec, [facility] [place] [facility] [address] [id number] [place] [address] Dec, [facility] [place] [facility] [address] [id number] [place] [address] Dec, [facility] [place] [facility] [address] [id number] [place] [address] Dec, [facility] [place] [facility] [address] [id number] [place] [address] Dec, [facility] [place] [facility] [address] [id number] [place] [address] Dec, [facility] [place] [facility] [address] [id number] [place] [address] Dec, [facility] [place] [facility] [address] [id number] [place] [address] Dec, [facility] [place] [facility] [address] [id number] [place] [address] Nov, [facility] [place] [facility] [address] [id number] [place] [address] Nov, [facility] [place] [facility] [address] [id number] [place] [address] September, [facility] [place] [facility] [address] [id number] [place] [address] September, [facility] [place] [facility] [address] [id number] [place] [address] September, [facility] [place] [facility] [address] [id number] [place] [address] September, [facility] [place] [facility] [address] [id number] [place] [address] Aug, [facility] [place] [facility] [address] [id number] [place] [address] Aug, [facility] [place] [facility] [address] [id number] [place] [address] Aug, [facility] [place] [facility] [address] [id number] [place] [address] Aug, [facility] [place] [facility] [address] [id number] [place] [address] Aug, [facility] [place] [facility] [address] [id number] [place] [address] Aug, [facility] [place] [facility] [address] [id number] [place] [address] 08 Aug, 2013 [facility] [place] [facility] [address] [id number] [place] [address] 08 Aug, 2013 [facility] [place] [facility] [address] [id number] [place] [address] Aug, [facility] [place] [facility] [address] [id number] [place] [address] Aug, [facility] [place] [facility] [address] [id number] [place] [address] Aug, [facility] [place] [facility] [address] [id number] [place] [address] Aug, [facility] [place] [facility] [address] [id number] [place] [address] Jul, [facility] [place] [facility] [address] [id number] [place] [address] Jul, [facility] [place] [facility] [address] [id number] [place] [address] Jul, [facility] [place] [facility] [address] [id number] [place] [address] Jul, [facility] [place] [facility] [address] [id number] [place] [address] Jul, [facility] [place] [facility] [address] [id number] [place] [address] Jul, [facility] [place] [facility] [address] [id number] [place] [address] 05 Jul, 2013 [facility] [place] [facility] [address] [id number] [place] [address] 05 Jul, 2013 [facility] [place] [facility] [address] [id number] [place] [address] Jul, [facility] [place] [facility] [address] [id number] [place] [address] Jul, [facility] [place] [facility] [address] [id number] [place] [address] Jun, [facility] [place] [facility] [address] [id number] [place] [address] Jun, [facility] [place] [facility] [address] [id number] [place] [address] Jun, [facility] [place] [facility] [address] [id number] [place] [address] Jun, [facility] [place] [facility] [address] [id number] [place] [address] Jun, [facility] [place] [facility] [address] [id number] [place] [address] Jun, [facility] [place] [facility] [address] [id number] [place] [address] Jun, [facility] [place] [facility] [address] [id number] [place] [address] Jun, [facility] [place] [facility] [address] [id number] [place] [address] Jun, [facility] [place] [facility] [address] [id number] [place] [address] Jun, [facility] [place] [facility] [address] [id number] [place] [address] Jun, [facility] [place] [facility] [address] [id number] [place] [address] Jun, [facility] [place] [facility] [address] [id number] [place] [address] May, [facility] [place] [facility] [address] [id number] [place] [address] May, [facility] [place] [facility] [address] [id number] [place] [address] May, [facility] [address] [id number] [place] [address] May, [facility] [address] [id number] [place] [address] May, [facility] [address] [id number] [place] [address] May, [facility] [address] [id number] [place] [address] May, [facility] [address] [id number] [place] [address] May, [facility] [address] [id number] [place] [address] May, [facility] [address] [id number] [place] [address] May, [facility] [facility] [address] [id number] [place] [address] May, [facility] [address] [id number] [place] [address] May, [facility] [address] [id number] [place] [address] May, [facility] [address] [id number] [place] [address] May, [facility] [address] [id number] [place] [address] May, [facility] [address] [id number] [place] [address] Apr, [facility] [place] [facility] [address] [id number] [place] [address] Apr, [facility] [address] [id number] [place] [address] Apr, [facility] [place] [facility] [address] [id number] [place] [address] Apr, [facility] [place] [facility] [address] [id number] [place] [address] Mar, [facility] [place] [facility] [address] [id number] [place] [address] Mar, [facility] [place] [facility] [address] [id number] [place] [address] Mar, [facility] [place] [facility] [address] [id number] [place] [address] Mar, [facility] [place] [facility] [address] [id number] [place] [address] Mar, [facility] [place] [facility] [address] [id number] [place] [address] Mar, [facility] [place] [facility] [address] [id number], [place] [address] Mar, [facility] [place] [facility] [address] [id number] [place] [address] Mar, [facility] [place] [facility] [address] [id number], [place] [address] Mar, [facility] [place] [facility] [address] [id number], [place] [address] Mar, [facility] [place] [facility] [address] [id number], [place] [address] Mar, [facility] [place] [facility] [address] [id number], [place] [address] Mar, [facility] [place] [facility] [address] [id number], [place] [address] Feb, [facility] [place] [facility] [address] [id number], [place] [address] 18 Jan, 2013 [facility] [place] [facility] [address] [id number], [place] [address] 17 Jan, 2013 [facility] [place] [facility] [address] [id number] [place] [address] 06 Jan, 2013 [facility] [place] [facility] [address] [id number] [place] [address] 04 Jan, 2013 [facility] [place] [facility] [address] [id number] [place] [address] Jan, [facility] [place] [facility] [address] [id number] [place] [address] Dec, [facility] [place] [facility] [address] [id number] [place] [address] Dec, [facility] [place] [facility] [address] [id number] [place] [address] Dec, [facility] [place] [facility] [address] [id number] [place] [address] Dec, [facility] [place] [facility] [address] [id number] [place] [address] Dec, [facility] [place] [facility] [address] [id number] [place] [address] Dec, [facility] [place] [facility] [address] [id number] [place] [address] Dec, [facility] [place] [facility] [address] [id number] [place] [address] Dec, [facility] [place] [facility] [address] [id number] [place] [address] Nov, [facility] [place] [facility] [address] [id number] [place] [address] Nov, [facility] [place] [facility] [address] [id number] [place] [address] Nov, [facility] [place] [facility] [address] [id number] [place] [address] Nov, [facility] [place] [facility] [address] [id number], [place] [address] Nov, [facility] [place] [facility] [address] [id number], [place] [address] Nov, [facility] [place] [facility] [address] [facility] [id number], [place] [address] Oct, [facility] [address] [id number] [place] [id number] Oct, [facility] [address] [id number] [place] [address] Oct, [facility] [address] [id number] [place] [id number] Oct, [facility] [address] [id number] [place] [address] Oct, [facility] [place] [facility] [address] [facility] [place] [id number], [place] [address] Oct, [facility] [place] [facility] [address] [id number], [place] [address] Oct, [facility] [place] [facility] [address] [facility] [place] [id number], [place] [address] Oct, [facility] [place] [facility] [address] [facility] [place] [id number], [place] [address] Oct, [facility] [place] [facility] [address] [facility] [place] [id number], [place] [address] Oct, [facility] [place] [facility] [address] [id number], [place] [address] Oct, [facility] [place] [facility] [address] [facility] [place] [id number], [place] [address] September, [facility] [place] [facility] [address] [id number], [place] [address] Aug, [facility] [place] [facility] [address] [facility] [place] [id number], [place] [address] Aug, [facility] [place] [facility] [address] [id number] [place] [address] Aug, [facility] [address] [id number] [place] [address] Aug, [facility] [place] [facility] [address] [id number] [place] [address] Jul, [facility] [address] [id number] [place] [address] Jul, [facility] [place] [facility] [address] [id number] [place] [address] Jul, [facility] [address] [id number] [place] [address] Jul, [facility] [address] [id number] [place] [address] Jul, [facility] [address] [id number] [place] [address] Jun, [facility] [address] [id number] [place] [address] Jun, [facility] [address] [id number] [place] [address] Jun, [facility] [address] [id number] [place] [address] May, [facility] [address] [id number] [place] [address] May, [facility] [place] [facility] [address] [id number] [place] [address] 14 May, 2012 [facility] [place] [facility] [address] [id number] [place] [address] May, [facility] [place] [facility] [address] [id number] [place] [address] May, [facility] [place] [facility] [address] [id number] [place] [address] May, [facility] [place] [facility] [address] [id number] [place] [address] 18 Apr, 2012 [facility] [address] [id number] [place] [address] 18 Apr, 2012 [facility] [address] [id number] [place] [address] 13 Apr, 2012 [facility] [address] [id number] [place] [address] Apr, [facility] [address] [id number] [place] [address] Apr, [facility] [address] [id number] [place] [address] Apr, [facility] [address] [facility] [place] [id number] [place] [address] Apr, [facility] [address] [id number] [place] [address] Mar, [facility] [address] [id number] [place] [address] Mar, [facility] [address] [id number] [place] [address] Mar, [facility] [address] [id number] [place] [address] Mar, [facility] [address] [id number], [place] [address] Jan, [facility] [address] [id number] [place] [address] Jan, [facility] [place] [facility] [address] [facility] [place] [id number] [place] [address] Jan, [facility] [address] [facility] [place] [id number], [place] [address] Jan, [facility] [place] [facility] [address] [facility] [id number][place] [id number] Dec, [facility] [address] [facility] [place] [id number], [place] [address] Dec, [facility] [address] [facility] [id number][place] [id number] Dec, [facility] [address] [facility] [place] [id number], [place] [address] Dec, [facility] [id number], [place] [address] Dec, [facility] [address] [id number], [place] [address] Dec, [facility] [id number], [place] [address] Nov, [facility] [address] [id number], [place] [address] Nov, [facility] [address] [id number], [place] [address] Nov, IMMUNIZATIONS No Known Immunizations SOCIAL HISTORY Never Assessed REASON FOR VISIT EMR-[facility] PLAN OF CARE VITAL SIGNS MEDICATIONS Unknown [...] asthma(493.90) Medical History Near syncope Medical History prison current use of anticoagulant Medical History Renal [...]
--- OUTSIDE RECORDS SUMMARY | 2018-11-13 20:14 | XMS REPORT ---
Author Author Migration, Doctor Organization [facility] Address Unknown Phone Unavailable Care Team Providers Care Dice Table Operator Name Role Phone Migration, Doctor Unavailable Unavailable PROBLEMS Type Condition ICD9-CM Code OCQ98-ND Code Onset Dates Condition Status SNOMED Code Problem Shortness of breath R06.02 Apr, 0 906211634 Problem Unspecified hypothyroidism E03.9 0 81723214 Problem Generalized anxiety disorder F41.1 Apr, 0 47393914 Problem Esophageal reflux K21.9 0 039135543 Problem Dyslipidemia E78.5 Oct, 0 270484100 Problem Osteoarthritis of right knee M17.11 13 May, 2009 0 469129798 Problem Unspecified sleep apnea G47.30 0 20626803 Problem Morbid obesity with BMI of 50.0-59.9, adult Z68.43 Active 630060269 Problem Migraine with aura and without status migrainosus, not intractable G43.109 Active 9373398 Problem Pulmonary embolus I26.99 13 Oct, 2011 0 16909184 Problem Morbid obesity E66.01 Active 822492971 Problem Nonintractable migraine G43.009 08 Oct, 2015 0 488156380 Problem Hypothyroidism E03.9 Active 53984370 Problem Renal stones N20.0 Active 51302400 Problem Coronary artery disease I25.10 Active 47195382 Problem Hyperlipidemia LDL goal <70 E78.5 Active 13614073 ALLERGIES No Information ENCOUNTERS Encounter Location Date Diagnosis [facility] [id number] [address] Oct, [facility] [address], [place] [address] Aug, Right foot pain M79.671 and Morbid obesity E66.01 [facility] [id number] [address] Jul, Right foot pain M79.671 and Morbid obesity E66.01 [facility] [address] [address] 12 Jul, 2018 Injury of right foot, initial encounter S99.921A and Morbid obesity E66.01 [facility] [id number] [place] [address] 05 Jul, 2018 Recurrent syncope R55 and Morbid obesity E66.01 [place] [id number] [place] [address] 04 Jul, 2018 [place] [id number] [place] [address] Jun, Hematuria, unspecified type R31.9 and BMI 50.0-59.9, adult Z68.43 [place] [id number] [place] [address] 07 Jun, [address] [address] 04 Jun, 2018 [facility] current use of anticoagulant Z79.01 [facility] [place] [id number] [place] [address] May, Ankle pain, right M25.571 and BMI 50.0-59.9, adult Z68.43 [place] [id number] [place] [address] May, [place] [id number] [place] [address] May, [place] [id number] [place] [address] Apr, [place] [id number] [place] [address] Apr, [place] [id number] [place] [address] Apr, [facility] [id number] [place] [address] Apr, BMI 50.0-59.9, adult Z68.43 and Weakness R53.1 [place] [id number] [place] [address] Apr, [facility] [address] [address] Apr, Dysuria R30.0 ; Hematuria R31.9 ; Renal lithiasis N20.0 and BMI 50.0- 59.9, adult Z68.43 [place] [address] [address] Apr, [place] [address] [address] Apr, [place] [address] [address] Apr, Hypothyroidism E03.9 [place] [address] [address] 04 Apr, 2018 Burning with urination R30.0 ; Type 2 diabetes mellitus with diabetic neuropathic arthropathy, 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 ; Acute bilateral low back pain without sciatica M54.5 and BMI 50.0-59.9, adult Z68.43 [place] [id number] [place] [address] Mar, Hypothyroidism E03.9 [place] [id number] [place] [address] Feb, [facility] [id number] [place] [address] Jan, [place] [address] [address] Jan, Acute non-recurrent maxillary sinusitis J01.00 and BMI 50.0-59.9, adult Z68.43 [facility] [address] [address] Jan, Congestion of upper respiratory tract J98.8 and BMI 50.0-59.9, adult Z68.43 [place] [address] [address] Dec, Type 2 diabetes mellitus with diabetic neuropathic arthropathy, 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 ; Morbid obesity with BMI of 50.0- 59.9, adult Z68.43 ; Hypothyroidism E03.9 ; Coronary artery disease I25.10 ; Hyperlipidemia LDL goal <70 E78.5 ; Right lower quadrant abdominal pain R10.31 and Acute cystitis with hematuria N30.01 [facility] [address] [address] Dec, Migraine with aura and without status migrainosus, not intractable G43.109 ; Dehydration symptoms R63.8 and BMI 50.0-59.9, adult Z68.43 [place] [address] [address] Oct, [place] [address] [address] Oct, [place] [address] [address] Oct, [facility] [address] [address] September, [facility] [address] [address] September, Type 2 diabetes mellitus with diabetic neuropathic arthropathy, 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 ; Hyperlipidemia, unspecified hyperlipidemia type E78.5 ; Personal history of pulmonary embolism Z86.711 ; Coronary artery disease I25.10 and Hypothyroidism E03.9 [facility] [address] [address] September, [facility] [address] [address] Aug, Type 2 diabetes mellitus with diabetic [...] without aura and with status migrainosus G43.011 [place] [address] [address] Aug, [place] [address] [address] Aug, [place] [address] [address] Jul, Renal stones N20.0 [facility] [address] [address] 19 Jun, 2017 Back pain M54.9 ; Kidney stones N20.0 and BMI 50.0-59.9, adult Z68.43 [place] [address] [address] 19 Jun, 2017 [place] [address] [address] 18 Apr, 2017 [place] [address] [address] Apr, [place] [address] [address] 15 Apr, 2017 Right foot pain M79.671 ; Acute gout involving toe of right foot, 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 and Arthritis M19.90 [place] [address] [address] 06 Apr, 2017 Gastroesophageal reflux disease without esophagitis K21.9 [place] [address] [address] Mar, Hypothyroidism, unspecified E03.9 [place] [id number] [place] [address] Feb, [place] [address] [address] 25 Jan, 2017 Cervicalgia of dahtixiw-vqjptoq-lznyk region M54.2 and Persistent headaches R51 [place] [address] [address] 20 Jan, 2017 [place] [address] [address] 12 Jan, 2017 Intractable migraine without aura and with status migrainosus G43.011 ; Cervical spine pain M54.2 ; Hyperlipidemia, unspecified hyperlipidemia type E78.5 ; Hypothyroidism E03.9 and Metabolic syndrome E88.81 [place] [address] [address] Jan, Hypothyroidism, unspecified E03.9 [place] [address] [address] Dec, Hypothyroidism, unspecified E03.9 [place] [address] [address] Dec, Hypothyroidism E03.9 [place] [address] [address] Nov, Laceration of left great toe w/o foreign body w/o damage to nail, initial encounter S91.112A [facility] [id number] [place] [address] Oct, Pain in left knee M25.562 and Arthritis M19.90 [place] [address] [address] Oct, Hypothyroidism, unspecified E03.9 and Hyperlipidemia, unspecified hyperlipidemia type E78.5 [place] [address] [place] [address] Oct, Gastroesophageal reflux disease without esophagitis K21.9 [place] [address] [address] 14 Oct, 2016 Metabolic syndrome E88.81 ; Personal history of pulmonary embolism Z86.711 ; Other specified hypothyroidism E03.8 and Hyperlipidemia, unspecified hyperlipidemia type E78.5 [place] [address] [address] 13 Oct, 2016 Personal history of pulmonary embolism Z86.711 ; Dysuria R30.0 ; Metabolic syndrome E88.81 ; Other specified hypothyroidism E03.8 ; Hyperlipidemia, unspecified hyperlipidemia type E78.5 and Morbid obesity with BMI of 50.0-59.9, adult Z68.43 [place] [address] [address] September, [facility] [address] [address] September, Wrist pain, left M25.532 and Acute pain of left knee M25.562 [place] [address] [address] Jul, Dysuria R30.0 [place] [address] [address] Jul, Dysuria R30.0 [place] [address] [address] Jul, Left lower quadrant pain R10.32 [place] [address] [address] Jul, [place] [address] [address] Jul, Coronary artery disease I25.10 ; Family history of diabetes mellitus Z83.3 ; Morbid obesity with BMI of 50.0-59.9, adult Z68.43 ; Metabolic syndrome E88.81 ; Personal history of pulmonary embolism Z86.711 ; Gastroesophageal reflux disease without esophagitis K21.9 ; Hypothyroidism, unspecified E03.9 ; Hyperlipidemia, unspecified hyperlipidemia type E78.5 and Left lower quadrant pain R10.32 [facility] [place] [id number] [place] [address] 09 Jul, 2016 [facility] [address] [address] 08 Jul, 2016 Morbid obesity with BMI of 50.0-59.9, adult Z68.43 [facility] [address] [address] 07 Jul, 2016 Generalized abdominal pain R10.84 [facility] [address] [address] 02 Jun, 2016 Muscle strain of right upper back, initial encounter S29.012A [facility] [address] [address] 16 May, 2016 Foreign body (FB) in soft tissue M79.[address] [address] Mar, Hypothyroidism, unspecified E03.9 and Arthritis M19.[address] [address] 13 Feb, 2016 Coronary artery disease I25.10 ; Morbid obesity with BMI of 50.0- 59.9, adult Z68.43 ; Metabolic syndrome E88.81 ; Gastroesophageal reflux disease without esophagitis K21.9 ; Hypothyroidism, unspecified E03.9 ; Personal history of pulmonary embolism Z86.711 and Hyperlipidemia, unspecified hyperlipidemia type E78.[address] [address] 10 Feb, 2016 [facility] [id number] [place] [address] 12 Jan, 2016 Acute right-sided thoracic back pain M54.6 [address] [id number] [place] [address] Jan, Acute pain of left knee M25.562 [place] [address] [address] Dec, Dysuria R30.0 ; Metabolic syndrome E88.81 ; Acute pain of left knee M25.562 ; Acute cystitis with hematuria N30.01 and Acute left eye pain H57.12 [place] [id number] [place] [address] Dec, [place] [address] [address] Dec, [place] [id number] [place] [address] Dec, Hypothyroidism, unspecified E03.9 [place] [address] [address] Dec, [place] [id number] [place] [address] Nov, Peripheral edema R60.9 and Acute pain of left knee M25.562 [facility] [id number] [place] [address] September, [place] [id number] [place] [address] September, Metabolic syndrome E88.81 and Allergy, subsequent encounter T78.40XD [facility] [address] [place] [id number] [place] [address] September, Muscle strain T14.8 [place] [address] [address] Aug, Chest pressure R07.89 ; Metabolic syndrome E88.81 ; Morbid obesity with BMI of 50.0-59.9, adult Z68.43 ; Esophageal reflux 530.81 and Shortness of breath R06.02 [place] [address], [place] [address] Aug, [facility] [id number] [place] [address] Aug, [facility] [id number] [place] [address] Aug, Hypothyroidism, unspecified E03.9 [facility] [address] [address] Aug, Routine health maintenance Z00.00 [facility] [id number] [place] [address] Aug, [place] [id number] [place] [address] Jul, Routine health maintenance Z00.00 ; Family history of diabetes mellitus Z83.3 ; Family history of cancer Z80.9 and Morbid obesity with BMI of 50.0- 59.9, adult Z68.43 [facility] [id number] [place] [address] Jul, Allergic rhinitis J30.9 and Postnasal drip R09.82 [place] [id number] [place] [address] 18 Jul, 2015 Influenza J11.1 [facility] [place] [id number] [place] [address] 08 Jul, 2016 Dysuria R30.0 [facility] [id number] [place] [address] Apr, [place] [id number] [place] [address] Mar, Acute upper respiratory infection, unspecified J06.9 and Hypothyroidism E03.9 [facility] [id number] [place] [address] Mar, [facility] [address] [place] [address] Feb, Coronary artery disease I25.10 [facility] [address] [place] [address] Feb, Left foot pain M79.672 [facility] [address], [place] [address] Jan, UTI (urinary tract infection) 599.0 [facility] [address] [place] [address] Jan, Urinary tract infection, site not specified 599.0 [place] [id number] [place] [address] Jan, Urinary tract infection, site not specified 599.0 [place] [address] [place] [address] Jan, [place] [address] [place] [address] Dec, Headache 784.0 [facility] [address] [place] [address] Dec, Urinary tract infection, site not specified 599.0 [place] [address] [place] [address] Dec, Urinary tract infection, site not specified 599.0 [place] [address], [place] [address] Dec, Urinary tract infection, site not specified 599.0 [place] [id number], [place] [address] Nov, Unspecified sleep apnea 780.57 ; Encounter for long-term (current) use of anticoagulants V58.61 ; Routine general medical examination at [facility] care facility V70.0 and Arthritis of both knees 716.96 [facility] [id number], [place] [address] September, Cat bite of hand 882.0 and Rectal bleeding 569.3 [facility] [id number] [place] [address] Aug, [facility] [address] [id number] [address] Aug, [facility] [address] [place] [address] Jul, [facility] [address] [id number], [place] [address] Jul, [facility] [address] [id number] [place] [address] Jul, [facility] [address] [id number] [place] [address] Jul, [facility] [address], [place] [address] Jul, [facility] [id number] [place] [address] Jul, [facility] [address], [place] [address] Jul, [facility] [id number] [address] Jul, [facility] [id number], [place] [address] May, [facility] [id number], [place] [address] May, [facility] [id number], [place] [address] May, [facility] [address] [id number], [place] [address] May, [facility] [id number], [place] [address] May, [facility] [place] [facility] [address] [id number] [place] [address] 16 May, 2014 [facility] [place] [facility] [address] [id number] [place] [address] May, [facility] [place] [facility] [address] [id number] [place] [address] Mar, [facility] [place] [facility] [address] [id number] [place] [address] Mar, [facility] [place] [facility] [address] [id number] [place] [address] 08 Jan, 2013 [facility] [place] [facility] [address] [id number] [place] [address] 08 Jan, 2013 [facility] [place] [facility] [address] [id number] [place] [address] 08 Jan, 2013 [facility] [place] [facility] [address] [id number] [place] [address] Jan, 2013 [facility] [place] [facility] [address] [id number] [place] [address] 05 Jan, 2014 [facility] [place] [facility] [address] [id number] [place] [address] Jan, 2013 [facility] [place] [facility] [address] [id number] [place] [address] Dec, [facility] [place] [facility] [address] [id number] [place] [address] Dec, [facility] [place] [facility] [address] [id number] [place] [address] Dec, [facility] [place] [facility] [address] [id number] [place] [address] Dec, [facility] [place] [facility] [address] [id number] [place] [address] Dec, [facility] [place] [facility] [address] [id number] [place] [address] Dec, [facility] [place] [facility] [address] [id number] [place] [address] Dec, [facility] [place] [facility] [address] [id number] [place] [address] Dec, [facility] [place] [facility] [address] [id number] [place] [address] Dec, [facility] [place] [facility] [address] [id number] [place] [address] Dec, [facility] [place] [facility] [address] [id number] [place] [address] Nov, [facility] [place] [facility] [address] [id number] [place] [address] Nov, [facility] [place] [facility] [address] [id number] [place] [address] September, [facility] [place] [facility] [address] [id number] [place] [address] September, [facility] [place] [facility] [address] [id number] [place] [address] September, [facility] [place] [facility] [address] [id number] [place] [address] September, [facility] [place] [facility] [address] [id number] [place] [address] Aug, [facility] [place] [facility] [address] [id number] [place] [address] Aug, [facility] [place] [facility] [address] [id number] [place] [address] Aug, [facility] [place] [facility] [address] [id number] [place] [address] Aug, [facility] [place] [facility] [address] [id number] [place] [address] Aug, [facility] [place] [facility] [address] [id number] [place] [address] Aug, [facility] [place] [facility] [address] [id number] [place] [address] 08 Aug, 2013 [facility] [place] [facility] [address] [id number] [place] [address] 08 Aug, 2013 [facility] [place] [facility] [address] [id number] [place] [address] Aug, [facility] [place] [facility] [address] [id number] [place] [address] Aug, [facility] [place] [facility] [address] [id number] [place] [address] Aug, [facility] [place] [facility] [address] [id number] [place] [address] Aug, [facility] [place] [facility] [address] [id number] [place] [address] Jul, [facility] [place] [facility] [address] [id number] [place] [address] Jul, [facility] [place] [facility] [address] [id number] [place] [address] Jul, [facility] [place] [facility] [address] [id number] [place] [address] Jul, [facility] [place] [facility] [address] [id number] [place] [address] Jul, [facility] [place] [facility] [address] [id number] [place] [address] Jul, [facility] [place] [facility] [address] [id number] [place] [address] 05 Jul, 2013 [facility] [place] [facility] [address] [id number] [place] [address] 05 Jul, 2013 [facility] [place] [facility] [address] [id number] [place] [address] Jul, [facility] [place] [facility] [address] [id number] [place] [address] Jul, [facility] [place] [facility] [address] [id number] [place] [address] Jun, [facility] [place] [facility] [address] [id number] [place] [address] Jun, [facility] [place] [facility] [address] [id number] [place] [address] Jun, [facility] [place] [facility] [address] [id number] [place] [address] Jun, [facility] [place] [facility] [address] [id number] [place] [address] Jun, [facility] [place] [facility] [address] [id number] [place] [address] Jun, [facility] [place] [facility] [address] [id number] [place] [address] Jun, [facility] [place] [facility] [address] [id number] [place] [address] Jun, [facility] [place] [facility] [address] [id number] [place] [address] Jun, [facility] [place] [facility] [address] [id number] [place] [address] Jun, [facility] [place] [facility] [address] [id number] [place] [address] Jun, [facility] [place] [facility] [address] [id number] [place] [address] Jun, [facility] [place] [facility] [address] [id number] [place] [address] May, [facility] [place] [facility] [address] [id number] [place] [address] May, [facility] [place] [facility] [address] [id number] [place] [address] May, [facility] [address] [id number] [place] [address] May, [facility] [address] [id number] [place] [address] May, [facility] [address] [id number] [place] [address] May, [facility] [address] [id number] [place] [address] May, [facility] [address] [id number] [place] [address] May, [facility] [address] [id number] [place] [address] May, [facility] [address] [id number] [place] [address] May, [facility] [address] [id number] [place] [address] May, [facility] [address] [id number] [place] [address] May, [facility] [address] [id number] [place] [address] May, [facility] [address] [id number] [place] [address] May, [facility] [address] [id number] [place] [address] May, [facility] [address] [id number] [place] [address] Apr, [facility] [place] [facility] [address] [id number] [place] [address] Apr, [facility] [address] [id number] [place] [address] Apr, [facility] [place] [facility] [address] [id number] [place] [address] Apr, [facility] [place] [facility] [address] [id number] [place] [address] Mar, [facility] [place] [facility] [address] [id number] [place] [address] Mar, [facility] [place] [facility] [address] [id number] [place] [address] Mar, [facility] [place] [facility] [address] [id number] [place] [address] Mar, [facility] [place] [facility] [address] [id number] [place] [address] Mar, [facility] [place] [facility] [address] [id number] [place] [address] Mar, [facility] [place] [facility] [address] [id number], [place] [address] Mar, [facility] [place] [facility] [address] [id number] [place] [address] Mar, [facility] [place] [facility] [address] [id number], [place] [address] Mar, [facility] [place] [facility] [address] [id number], [place] [address] Mar, [facility] [place] [facility] [address] [id number], [place] [address] Mar, [facility] [place] [facility] [address] [id number], [place] [address] Mar, [facility] [place] [facility] [address] [id number], [place] [address] Feb, [facility] [place] [facility] [address] [id number], [place] [address] 18 Jan, 2013 [facility] [place] [facility] [address] [id number], [place] [address] 17 Jan, 2013 [facility] [place] [facility] [address] [id number] [place] [address] 06 Jan, 2013 [facility] [place] [facility] [address] [id number] [place] [address] 04 Jan, 2013 [facility] [place] [facility] [address] [id number] [place] [address] Jan, [facility] [place] [facility] [address] [id number] [place] [address] Dec, [facility] [place] [facility] [address] [id number] [place] [address] Dec, [facility] [place] [facility] [address] [id number] [place] [address] Dec, [facility] [place] [facility] [address] [id number] [place] [address] Dec, [facility] [place] [facility] [address] [id number] [place] [address] Dec, [facility] [place] [facility] [address] [id number] [place] [address] Dec, [facility] [place] [facility] [address] [id number] [place] [address] Dec, [facility] [place] [facility] [address] [id number] [place] [address] Dec, [facility] [place] [facility] [address] [id number] [place] [address] Nov, [facility] [place] [facility] [address] [id number] [place] [address] Nov, [facility] [place] [facility] [address] [id number] [place] [address] Nov, [facility] [place] [facility] [address] [id number] [place] [address] Nov, [facility] [place] [facility] [address] [id number], [place] [address] Nov, [facility] [place] [facility] [address] [id number], [place] [address] Nov, [facility] [place] [facility] [address] [id number], [place] [address] Oct, [facility] [address] [id number] [place] [id number] Oct, [facility] [address] [id number] [place] [id number] Oct, [facility] [address] [id number] [place] [id number] Oct, [facility] [address] [id number] [place] [id number] Oct, [facility] [place] [facility] [address] [id number], [place] [address] Oct, [facility] [place] [facility] [address] [id number], [place] [address] Oct, [facility] [place] [facility] [address] [id number], [place] [address] Oct, [facility] [place] [facility] [address] [id number], [place] [address] Oct, [facility] [place] [facility] [address] [id number], [place] [address] Oct, [facility] [place] [facility] [address] [id number], [place] [address] Oct, [facility] [place] [facility] [address] [id number], [place] [address] September, [facility] [place] [facility] [address] [id number], [place] [address] Aug, [facility] [place] [facility] [address] [id number], [place] [address] Aug, [facility] [place] [facility] [address] [id number] [place] [address] Aug, [facility] [address] [id number] [place] [address] Aug, [facility] [place] [facility] [address] [id number] [place] [address] Jul, [facility] [address] [id number] [place] [address] Jul, [facility] [place] [facility] [address] [id number] [place] [address] Jul, [facility] [address] [id number] [place] [address] Jul, [facility] [address] [id number] [place] [address] Jul, [facility] [address] [id number] [place] [address] Jun, [facility] [address] [id number] [place] [address] Jun, [facility] [address] [id number] [place] [address] Jun, [facility] [address] [id number] [place] [address] May, [facility] [address] [id number] [place] [address] May, [facility] [place] [facility] [address] [id number] [place] [address] 14 May, 2012 [facility] [place] [facility] [address] [id number] [place] [address] May, [facility] [place] [facility] [address] [id number] [place] [address] May, [facility] [place] [facility] [address] [id number] [place] [address] May, [facility] [place] [facility] [address] [id number] [place] [address] 18 Apr, 2012 [facility] [address] [id number] [place] [address] 18 Apr, 2012 [facility] [address] [id number] [place] [address] 13 Apr, 2012 [facility] [address] [id number] [place] [address] Apr, [facility] [address] [id number] [place] [address] Apr, [facility] [address] [id number] [place] [address] Apr, [facility] [address] [id number] [place] [address] Apr, [facility] [address] [id number] [place] [address] Mar, [facility] [address] [id number] [place] [address] Mar, [facility] [address] [id number] [place] [address] Mar, [facility] [address] [id number] [place] [address] Mar, [facility] [address] [id number], [place] [address] Jan, [facility] [address] [id number] [place] [address] Jan, [facility] [place] [facility] [address] [id number] [place] [address] Jan, [facility] [address] [id number], [place] [address] Jan, [facility] [address] [facility] [id number] [id number] Dec, [facility] [address] [id number], [place] [address] Dec, [facility] [address] [facility] [id number] [id number] Dec, [facility] [address] [id number], [place] [address] Dec, [facility] [id number], [place] [address] Dec, [facility] [address] [id number], [place] [address] Dec, [facility] [id number], [place] [address] Nov, [facility] [address] [id number], [place] [address] Nov, [facility] [address] [id number], [place] [address] Nov, IMMUNIZATIONS No Known Immunizations SOCIAL HISTORY Never Assessed REASON FOR VISIT EMR-[facility] PLAN OF CARE VITAL SIGNS MEDICATIONS Unknown [...] asthma(493.90) Medical History Near syncope Medical History [facility] current use of anticoagulant Medical History Renal [...]
--- OUTSIDE RECORDS SUMMARY | 2018-11-13 20:15 | XMS REPORT ---
Author Author Migration, Doctor Organization [facility] Address Unknown Phone Unavailable Care Team Providers Care Unit Manager Rn Name Role Phone Migration, Doctor Unavailable Unavailable PROBLEMS Type Condition ICD9-CM Code [id number] Code Onset Dates Condition Status SNOMED Code Problem Shortness of breath R06.02 Apr, 0 211836353 Problem Unspecified hypothyroidism E03.9 0 81719513 Problem Generalized anxiety disorder F41.1 Apr, 0 66158564 Problem Esophageal reflux K21.9 0 160425505 Problem Dyslipidemia E78.5 Oct, 0 985095804 Problem Osteoarthritis of right knee M17.11 13 May, 2009 0 705845479 Problem Unspecified sleep apnea G47.30 0 33280466 Problem Morbid obesity with BMI of 50.0-59.9, adult Z68.43 Active 767008606 Problem Migraine with aura and without status migrainosus, not intractable G43.109 Active 1615943 Problem Pulmonary embolus I26.99 13 Oct, 2011 0 41124589 Problem Morbid obesity E66.01 Active 367776953 Problem Nonintractable migraine G43.009 08 Oct, 2015 0 248699521 Problem Hypothyroidism E03.9 Active 66897841 Problem Renal stones N20.0 Active 35986896 Problem Coronary artery disease I25.10 Active 69424686 Problem Hyperlipidemia LDL goal <70 E78.5 Active 78809169 ALLERGIES No Information ENCOUNTERS Encounter Location Date Diagnosis [facility] [id number] [address] Oct, [facility] [address], [place] [address] Aug, Right foot pain M79.671 and Morbid obesity E66.01 [facility] [id number] [address] Jul, Right foot pain M79.671 and Morbid obesity E66.01 [facility] [address], [place] [address] 12 Jul, 2018 Injury of right foot, initial encounter S99.921A and Morbid obesity E66.01 [facility] [id number] [place] [address] 05 Jul, 2018 Recurrent syncope R55 and Morbid obesity E66.01 [place] [id number] [place] [address] 04 Jul, 2018 [place] [id number] [place] [address] Jun, Hematuria, unspecified type R31.9 and BMI 50.0-59.9, adult Z68.43 [place] [id number] [place] [address] 07 Jun, [address] [address] 04 Jun, 2018 residential current use of anticoagulant Z79.01 [facility] [place] [id number] [place] [address] May, Ankle pain, right M25.571 and BMI 50.0-59.9, adult Z68.43 [place] [id number] [place] [address] May, [place] [id number] [place] [address] May, [place] [id number] [place] [address] Apr, [place] [id number] [place] [address] Apr, [place] [id number] [place] [address] Apr, [facility] [id number] [place] [address] Apr, BMI 50.0-59.9, adult Z68.43 and Weakness R53.1 [place] [id number] [place] [address] Apr, [facility] [address] [address] Apr, Dysuria R30.0 ; Hematuria R31.9 ; Renal lithiasis N20.0 and BMI 50.0- 59.9, adult Z68.43 [place] [address] [address] Apr, [place] [address] [address] Apr, [place] [address] [address] Apr, Hypothyroidism E03.9 [place] [address] [address] 04 Apr, 2018 Burning with urination R30.0 ; Type 2 diabetes mellitus with diabetic neuropathic arthropathy, 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 ; Acute bilateral low back pain without sciatica M54.5 and BMI 50.0-59.9, adult Z68.43 [place] [id number] [place] [address] Mar, Hypothyroidism E03.9 [place] [id number] [place] [address] Feb, [facility] [id number] [place] [address] Jan, [place] [address] [address] Jan, Acute non-recurrent maxillary sinusitis J01.00 and BMI 50.0-59.9, adult Z68.43 [facility] [address] [address] Jan, Congestion of upper respiratory tract J98.8 and BMI 50.0-59.9, adult Z68.43 [place] [address] [address] Dec, Type 2 diabetes mellitus with diabetic neuropathic arthropathy, 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 ; Morbid obesity with BMI of 50.0- 59.9, adult Z68.43 ; Hypothyroidism E03.9 ; Coronary artery disease I25.10 ; Hyperlipidemia LDL goal <70 E78.5 ; Right lower quadrant abdominal pain R10.31 and Acute cystitis with hematuria N30.01 [facility] [address] [address] Dec, Migraine with aura and without status migrainosus, not intractable G43.109 ; Dehydration symptoms R63.8 and BMI 50.0-59.9, adult Z68.43 [place] [address] [address] Oct, [place] [address] [address] Oct, [place] [address] [address] Oct, [facility] [address] [address] September, [facility] [address] [address] September, Type 2 diabetes mellitus with diabetic neuropathic arthropathy, 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 ; Hyperlipidemia, unspecified hyperlipidemia type E78.5 ; Personal history of pulmonary embolism Z86.711 ; Coronary artery disease I25.10 and Hypothyroidism E03.9 [facility] [address] [address] September, [facility] [address] [address] Aug, Type 2 diabetes mellitus with diabetic [...] without aura and with status migrainosus G43.011 [place] [address] [address] Aug, [place] [address] [address] Aug, [place] [address] [address] Jul, Renal stones N20.0 [facility] [address] [address] 19 Jun, 2017 Back pain M54.9 ; Kidney stones N20.0 and BMI 50.0-59.9, adult Z68.43 [place] [address] [address] 19 Jun, 2017 [place] [address] [address] 18 Apr, 2017 [place] [address] [address] Apr, [place] [address] [address] 15 Apr, 2017 Right foot pain M79.671 ; Acute gout involving toe of right foot, 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 and Arthritis M19.90 [place] [address] [address] 06 Apr, 2017 Gastroesophageal reflux disease without esophagitis K21.9 [place] [address] [address] Mar, Hypothyroidism, unspecified E03.9 [place] [id number] [place] [address] Feb, [place] [address] [address] 25 Jan, 2017 Cervicalgia of nbuoiswv-mfawkpr-ifwit region M54.2 and Persistent headaches R51 [place] [address] [address] 20 Jan, 2017 [place] [address] [address] 12 Jan, 2017 Intractable migraine without aura and with status migrainosus G43.011 ; Cervical spine pain M54.2 ; Hyperlipidemia, unspecified hyperlipidemia type E78.5 ; Hypothyroidism E03.9 and Metabolic syndrome E88.81 [place] [address] [address] Jan, Hypothyroidism, unspecified E03.9 [place] [address] [address] Dec, Hypothyroidism, unspecified E03.9 [place] [address] [address] Dec, Hypothyroidism E03.9 [place] [address] [address] Nov, Laceration of left great toe w/o foreign body w/o damage to nail, initial encounter S91.112A [facility] [id number] [place] [address] Oct, Pain in left knee M25.562 and Arthritis M19.90 [place] [address] [address] Oct, Hypothyroidism, unspecified E03.9 and Hyperlipidemia, unspecified hyperlipidemia type E78.5 [place] [address] [place] [address] Oct, Gastroesophageal reflux disease without esophagitis K21.9 [place] [address] [address] 14 Oct, 2016 Metabolic syndrome E88.81 ; Personal history of pulmonary embolism Z86.711 ; Other specified hypothyroidism E03.8 and Hyperlipidemia, unspecified hyperlipidemia type E78.5 [place] [address] [address] 13 Oct, 2016 Personal history of pulmonary embolism Z86.711 ; Dysuria R30.0 ; Metabolic syndrome E88.81 ; Other specified hypothyroidism E03.8 ; Hyperlipidemia, unspecified hyperlipidemia type E78.5 and Morbid obesity with BMI of 50.0-59.9, adult Z68.43 [place] [address] [address] September, [facility] [address] [address] September, Wrist pain, left M25.532 and Acute pain of left knee M25.562 [place] [address] [address] Jul, Dysuria R30.0 [place] [address] [address] Jul, Dysuria R30.0 [place] [address] [address] Jul, Left lower quadrant pain R10.32 [place] [address] [address] Jul, [place] [address] [address] Jul, Coronary artery disease I25.10 ; Family history of diabetes mellitus Z83.3 ; Morbid obesity with BMI of 50.0-59.9, adult Z68.43 ; Metabolic syndrome E88.81 ; Personal history of pulmonary embolism Z86.711 ; Gastroesophageal reflux disease without esophagitis K21.9 ; Hypothyroidism, unspecified E03.9 ; Hyperlipidemia, unspecified hyperlipidemia type E78.5 and Left lower quadrant pain R10.32 [facility] [place] [id number] [place] [address] 09 Jul, 2016 [facility] [address] [address] 08 Jul, 2016 Morbid obesity with BMI of 50.0-59.9, adult Z68.43 [facility] [address] [address] 07 Jul, 2016 Generalized abdominal pain R10.84 [facility] [address] [address] 02 Jun, 2016 Muscle strain of right upper back, initial encounter S29.012A [facility] [address] [address] 16 May, 2016 Foreign body (FB) in soft tissue M79.[address] [address] Mar, Hypothyroidism, unspecified E03.9 and Arthritis M19.[address] [address] 13 Feb, 2016 Coronary artery disease I25.10 ; Morbid obesity with BMI of 50.0- 59.9, adult Z68.43 ; Metabolic syndrome E88.81 ; Gastroesophageal reflux disease without esophagitis K21.9 ; Hypothyroidism, unspecified E03.9 ; Personal history of pulmonary embolism Z86.711 and Hyperlipidemia, unspecified hyperlipidemia type E78.[address] [address] 10 Feb, 2016 [facility] [place] [id number] [place] [address] 12 Jan, 2016 Acute right-sided thoracic back pain M54.6 [place] [id number] [place] [address] Jan, Acute pain of left knee M25.562 [place] [address] [address] Dec, Dysuria R30.0 ; Metabolic syndrome E88.81 ; Acute pain of left knee M25.562 ; Acute cystitis with hematuria N30.01 and Acute left eye pain H57.12 [place] [id number] [place] [address] Dec, [place] [address] [address] Dec, [place] [id number] [place] [address] Dec, Hypothyroidism, unspecified E03.9 [place] [address] [address] Dec, [place] [id number] [place] [address] Nov, Peripheral edema R60.9 and Acute pain of left knee M25.562 [facility] [place] [id number] [place] [address] September, [place] [id number] [place] [address] September, Metabolic syndrome E88.81 and Allergy, subsequent encounter T78.40XD [facility] [address] [place] [id number] [place] [address] September, Muscle strain T14.8 [place] [address] [address] Aug, Chest pressure R07.89 ; Metabolic syndrome E88.81 ; Morbid obesity with BMI of 50.0-59.9, adult Z68.43 ; Esophageal reflux 530.81 and Shortness of breath R06.02 [place] [address] [address] Aug, [facility] [id number] [place] [address] Aug, [facility] [id number] [place] [address] Aug, Hypothyroidism, unspecified E03.9 [facility] [address] [address] Aug, Routine health maintenance Z00.00 [facility] [id number] [place] [address] Aug, [place] [id number] [place] [address] Jul, Routine health maintenance Z00.00 ; Family history of diabetes mellitus Z83.3 ; Family history of cancer Z80.9 and Morbid obesity with BMI of 50.0- 59.9, adult Z68.43 [facility] [id number] [place] [address] Jul, Allergic rhinitis J30.9 and Postnasal drip R09.82 [place] [id number] [place] [address] 18 Jul, 2015 Influenza J11.1 [facility] [place] [id number] [place] [address] 08 Jul, 2016 Dysuria R30.0 [facility] [id number] [place] [address] Apr, [place] [id number] [place] [address] Mar, Acute upper respiratory infection, unspecified J06.9 and Hypothyroidism E03.9 [facility] [id number] [place] [address] Mar, [facility] [address] [place] [address] Feb, Coronary artery disease I25.10 [facility] [address] [place] [address] Feb, Left foot pain M79.672 [facility] [address], [place] [address] Jan, UTI (urinary tract infection) 599.0 [facility] [address] [place] [address] Jan, Urinary tract infection, site not specified 599.0 [place] [id number] [place] [address] Jan, Urinary tract infection, site not specified 599.0 [place] [address] [place] [address] Jan, [place] [address] [place] [address] Dec, Headache 784.0 [facility] [address] [place] [address] Dec, Urinary tract infection, site not specified 599.0 [place] [address] [place] [address] Dec, Urinary tract infection, site not specified 599.0 [place] [address], [place] [address] Dec, Urinary tract infection, site not specified 599.0 [place] [id number] [address] Nov, Unspecified sleep apnea 780.57 ; Encounter for long-term (current) use of anticoagulants V58.61 ; Routine general medical examination at [facility] care facility V70.0 and Arthritis of both knees 716.96 [facility] [id number] [address] September, Cat bite of hand 882.0 and Rectal bleeding 569.3 [facility] [id number] [place] [address] Aug, [facility] [address] [facility] [id number] [address] Aug, [facility] [address] [place] [address] Jul, [facility] [address] [facility] [id number], [place] [address] Jul, [facility] [address] [facility] [id number] [place] [address] Jul, [facility] [address] [facility] [id number] [place] [address] Jul, [facility] [address] [address] Jul, [facility] [id number] [place] [address] Jul, [facility] [address] [address] Jul, [facility] [id number] [address] Jul, [facility] [id number] [address] May, [facility] [id number] [address] May, [facility] [id number] [address] May, [facility] [address] [facility] [id number], [place] [address] May, [facility] [id number] [address] May, [facility] [place] [facility] [address] [id number] [place] [address] 16 May, 2014 [facility] [place] [facility] [address] [id number] [place] [address] May, [facility] [place] [facility] [address] [id number] [place] [address] Mar, [facility] [place] [facility] [address] [id number] [place] [address] Mar, [facility] [place] [facility] [address] [id number] [place] [address] 08 Jan, 2013 [facility] [place] [facility] [address] [id number] [place] [address] 08 Jan, 2013 [facility] [place] [facility] [address] [id number] [place] [address] 08 Jan, 2013 [facility] [place] [facility] [address] [id number] [place] [address] Jan, 2013 [facility] [place] [facility] [address] [id number] [place] [address] 05 Jan, 2014 [facility] [place] [facility] [address] [id number] [place] [address] Jan, 2013 [facility] [place] [facility] [address] [id number] [place] [address] Dec, [facility] [place] [facility] [address] [id number] [place] [address] Dec, [facility] [place] [facility] [address] [id number] [place] [address] Dec, [facility] [place] [facility] [address] [id number] [place] [address] Dec, [facility] [place] [facility] [address] [id number] [place] [address] Dec, [facility] [place] [facility] [address] [id number] [place] [address] Dec, [facility] [place] [facility] [address] [id number] [place] [address] Dec, [facility] [place] [facility] [address] [id number] [place] [address] Dec, [facility] [place] [facility] [address] [id number] [place] [address] Dec, [facility] [place] [facility] [address] [id number] [place] [address] Dec, [facility] [place] [facility] [address] [id number] [place] [address] Nov, [facility] [place] [facility] [address] [id number] [place] [address] Nov, [facility] [place] [facility] [address] [id number] [place] [address] September, [facility] [place] [facility] [address] [id number] [place] [address] September, [facility] [place] [facility] [address] [id number] [place] [address] September, [facility] [place] [facility] [address] [id number] [place] [address] September, [facility] [place] [facility] [address] [id number] [place] [address] Aug, [facility] [place] [facility] [address] [id number] [place] [address] Aug, [facility] [place] [facility] [address] [id number] [place] [address] Aug, [facility] [place] [facility] [address] [id number] [place] [address] Aug, [facility] [place] [facility] [address] [id number] [place] [address] Aug, [facility] [place] [facility] [address] [id number] [place] [address] Aug, [facility] [place] [facility] [address] [id number] [place] [address] 08 Aug, 2013 [facility] [place] [facility] [address] [id number] [place] [address] 08 Aug, 2013 [facility] [place] [facility] [address] [id number] [place] [address] Aug, [facility] [place] [facility] [address] [id number] [place] [address] Aug, [facility] [place] [facility] [address] [id number] [place] [address] Aug, [facility] [place] [facility] [address] [id number] [place] [address] Aug, [facility] [place] [facility] [address] [id number] [place] [address] Jul, [facility] [place] [facility] [address] [id number] [place] [address] Jul, [facility] [place] [facility] [address] [id number] [place] [address] Jul, [facility] [place] [facility] [address] [id number] [place] [address] Jul, [facility] [place] [facility] [address] [id number] [place] [address] Jul, [facility] [place] [facility] [address] [id number] [place] [address] Jul, [facility] [place] [facility] [address] [id number] [place] [address] 05 Jul, 2013 [facility] [place] [facility] [address] [id number] [place] [address] 05 Jul, 2013 [facility] [place] [facility] [address] [id number] [place] [address] Jul, [facility] [place] [facility] [address] [id number] [place] [address] Jul, [facility] [place] [facility] [address] [id number] [place] [address] Jun, [facility] [place] [facility] [address] [id number] [place] [address] Jun, [facility] [place] [facility] [address] [id number] [place] [address] Jun, [facility] [place] [facility] [address] [id number] [place] [address] Jun, [facility] [place] [facility] [address] [id number] [place] [address] Jun, [facility] [place] [facility] [address] [id number] [place] [address] Jun, [facility] [place] [facility] [address] [id number] [place] [address] Jun, [facility] [place] [facility] [address] [id number] [place] [address] Jun, [facility] [place] [facility] [address] [id number] [place] [address] Jun, [facility] [place] [facility] [address] [id number] [place] [address] Jun, [facility] [place] [facility] [address] [id number] [place] [address] Jun, [facility] [place] [facility] [address] [id number] [place] [address] Jun, [facility] [place] [facility] [address] [id number] [place] [address] May, [facility] [place] [facility] [address] [id number] [place] [address] May, [facility] [place] [facility] [address] [id number] [place] [address] May, [facility] [address] [id number] [place] [address] May, [facility] [address] [id number] [place] [address] May, [facility] [address] [id number] [place] [address] May, [facility] [address] [id number] [place] [address] May, [facility] [address] [id number] [place] [address] May, [facility] [address] [id number] [place] [address] May, [facility] [address] [id number] [place] [address] May, [facility] [address] [id number] [place] [address] May, [facility] [address] [id number] [place] [address] May, [facility] [address] [id number] [place] [address] May, [facility] [address] [id number] [place] [address] May, [facility] [address] [id number] [place] [address] May, [facility] [address] [id number] [place] [address] Apr, [facility] [place] [facility] [address] [id number] [place] [address] Apr, [facility] [address] [id number] [place] [address] Apr, [facility] [place] [facility] [address] [id number] [place] [address] Apr, [facility] [place] [facility] [address] [id number] [place] [address] Mar, [facility] [place] [facility] [address] [id number] [place] [address] Mar, [facility] [place] [facility] [address] [id number] [place] [address] Mar, [facility] [place] [facility] [address] [id number] [place] [address] Mar, [facility] [place] [facility] [address] [id number] [place] [address] Mar, [facility] [place] [facility] [address] [id number] [place] [address] Mar, [facility] [place] [facility] [address] [id number], [place] [address] Mar, [facility] [place] [facility] [address] [id number] [place] [address] Mar, [facility] [place] [facility] [address] [id number], [place] [address] Mar, [facility] [place] [facility] [address] [id number], [place] [address] Mar, [facility] [place] [facility] [address] [id number], [place] [address] Mar, [facility] [place] [facility] [address] [id number], [place] [address] Mar, [facility] [place] [facility] [address] [id number], [place] [address] Feb, [facility] [place] [facility] [address] [id number], [place] [address] 18 Jan, 2013 [facility] [place] [facility] [address] [id number][place] [address] 17 Jan, 2013 [facility] [place] [facility] [address] [id number] [place] [address] 06 Jan, 2013 [facility] [place] [facility] [address] [id number] [place] [address] 04 Jan, 2013 [facility] [place] [facility] [address] [id number] [place] [address] Jan, [facility] [place] [facility] [address] [id number] [place] [address] Dec, [facility] [place] [facility] [address] [id number] [place] [address] Dec, [facility] [place] [facility] [address] [id number] [place] [address] Dec, [facility] [place] [facility] [address] [id number] [place] [address] Dec, [facility] [place] [facility] [address] [id number] [place] [address] Dec, [facility] [place] [facility] [address] [id number] [place] [address] Dec, [facility] [place] [facility] [address] [id number] [place] [address] Dec, [facility] [place] [facility] [address] [id number] [place] [address] Dec, [facility] [place] [facility] [address] [id number] [place] [address] Nov, [facility] [place] [facility] [address] [id number] [place] [address] Nov, [facility] [place] [facility] [address] [id number] [place] [address] Nov, [facility] [place] [facility] [address] [id number] [place] [address] Nov, [facility] [place] [facility] [address] [id number], [place] [address] Nov, [facility] [place] [facility] [address] [id number], [place] [address] Nov, [facility] [place] [facility] [address] [facility] [id number], [place] [address] Oct, [facility] [address] [id number] [place] [id number] Oct, [facility] [address] [id number] [place] [id number] Oct, [facility] [address] [id number] [place] [id number] Oct, [facility] [address] [id number] [place] [id number] Oct, [facility] [place] [facility] [address] [facility] [id number], [place] [address] Oct, [facility] [place] [facility] [address] [id number], [place] [address] Oct, [facility] [place] [facility] [address] [facility] [id number], [place] [address] Oct, [facility] [place] [facility] [address] [facility] [id number], [place] [address] Oct, [facility] [place] [facility] [address] [facility] [id number], [place] [address] Oct, [facility] [place] [facility] [address] [id number], [place] [address] Oct, [facility] [place] [facility] [address] [facility] [id number], [place] [address] September, [facility] [place] [facility] [address] [id number], [place] [address] Aug, [facility] [place] [facility] [address] [facility] [id number], [place] [address] Aug, [facility] [place] [facility] [address] [id number] [place] [address] Aug, [facility] [address] [id number] [place] [address] Aug, [facility] [place] [facility] [address] [id number] [place] [address] Jul, [facility] [address] [id number] [place] [address] Jul, [facility] [place] [facility] [address] [id number] [place] [address] Jul, [facility] [address] [id number] [place] [address] Jul, [facility] [address] [id number] [place] [address] Jul, [facility] [address] [id number] [place] [address] Jun, [facility] [address] [id number] [place] [address] Jun, [facility] [address] [id number] [place] [address] Jun, [facility] [address] [id number] [place] [address] May, [facility] [address] [id number] [place] [address] May, [facility] [place] [facility] [address] [id number] [place] [address] 14 May, 2012 [facility] [place] [facility] [address] [id number] [place] [address] May, [facility] [place] [facility] [address] [id number] [place] [address] May, [facility] [place] [facility] [address] [id number] [place] [address] May, [facility] [place] [facility] [address] [id number] [place] [address] 18 Apr, 2012 [facility] [address] [id number] [place] [address] 18 Apr, 2012 [facility] [address] [id number] [place] [address] 13 Apr, 2012 [facility] [address] [id number] [place] [address] Apr, [facility] [address] [id number] [place] [address] Apr, [facility] [address] [id number] [place] [address] Apr, [facility] [address] [facility] [id number] [place] [address] Apr, [facility] [address] [id number] [place] [address] Mar, [facility] [address] [id number] [place] [address] Mar, [facility] [address] [id number] [place] [address] Mar, [facility] [address] [id number] [place] [address] Mar, [facility] [address] [id number], [place] [address] Jan, [facility] [address] [id number] [place] [address] Jan, [facility] [place] [facility] [address] [facility] [id number] [place] [address] Jan, [facility] [address] [facility] [id number], [place] [address] Jan, [facility] [place] [address] [facility] [id number] [id number] Dec, [facility] [address] [facility] [id number], [place] [address] Dec, [facility] [address] [facility] [id number] [id number] Dec, [facility] [address] [facility] [id number], [place] [address] Dec, [facility] [id number], [place] [address] Dec, [facility] [address] [id number], [place] [address] Dec, [facility] [id number], [place] [address] Nov, [facility] [address] [id number], [place] [address] Nov, [facility] [address] [id number], [place] [address] Nov, IMMUNIZATIONS No Known Immunizations SOCIAL HISTORY Never Assessed REASON FOR VISIT EMR-[facility] PLAN OF CARE VITAL SIGNS MEDICATIONS [...] asthma(493.90) Medical History Near syncope Medical History residential current use of anticoagulant Medical History Renal [...]
--- OUTSIDE RECORDS SUMMARY | 2018-11-13 20:15 | XMS REPORT ---
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 Name Role Phone Migration, Doctor Unavailable Unavailable PROBLEMS Type Condition ICD9-CM Code [id number] Code Onset Dates Condition Status SNOMED Code Problem Shortness of breath R06.02 Apr, 0 177368196 Problem Unspecified hypothyroidism E03.9 0 96141204 Problem Generalized anxiety disorder F41.1 Apr, 0 22426327 Problem Esophageal reflux K21.9 0 357333568 Problem Dyslipidemia E78.5 Oct, 0 133278347 Problem Osteoarthritis of right knee M17.11 13 May, 2009 0 686125162 Problem Unspecified sleep apnea G47.30 0 83600622 Problem Morbid obesity with BMI of 50.0-59.9, adult Z68.43 Active 948279280 Problem Migraine with aura and without status migrainosus, not intractable G43.109 Active 2321398 Problem Pulmonary embolus I26.99 13 Oct, 2011 0 16688987 Problem Morbid obesity E66.01 Active 697546729 Problem Nonintractable migraine G43.009 08 Oct, 2015 0 818341510 Problem Hypothyroidism E03.9 Active 00715127 Problem Renal stones N20.0 Active 44624848 Problem Coronary artery disease I25.10 Active 75300415 Problem Hyperlipidemia LDL goal <70 E78.5 Active 40074174 ALLERGIES No Information ENCOUNTERS Encounter Location Date Diagnosis [facility] [address], [place] [address] Aug, Right foot pain M79.671 and Morbid obesity E66.01 [facility] [id number] [place] [address] Jul, Right foot pain M79.671 and Morbid obesity E66.01 [facility] [address], [place] [address] Jul, Injury of right foot, initial encounter S99.921A and Morbid obesity E66.01 [facility] [id number] [place] [address] Jul, Recurrent syncope R55 and Morbid obesity E66.01 [place] [id number] [place] [address] Jul, [place] [id number] [place] [address] Jun, Hematuria, unspecified type R31.9 and BMI 50.0-59.9, adult Z68.43 [place] [id number] [place] [address] Jun, [address] [address] Jun, nursing home current use of anticoagulant Z79.01 [facility] [place] [id number] [place] [address] May, Ankle pain, right M25.571 and BMI 50.0-59.9, adult Z68.43 [place] [id number] [place] [address] May, [place] [id number] [place] [address] May, [place] [id number] [place] [address] Apr, [place] [id number] [place] [address] Apr, [place] [id number] [place] [address] Apr, [facility] [id number] [place] [address] Apr, BMI 50.0-59.9, adult Z68.43 and Weakness R53.1 [place] [id number] [place] [address] Apr, [facility] [address] [address] Apr, Dysuria R30.0 ; Hematuria R31.9 ; Renal lithiasis N20.0 and BMI 50.0- 59.9, adult Z68.43 [place] [address] [address] Apr, [place] [address] [address] Apr, [place] [address] [address] 05 Apr, 2018 Hypothyroidism E03.9 [place] [address] [address] 04 Apr, 2018 Burning with urination R30.0 ; Type 2 diabetes mellitus with diabetic neuropathic arthropathy, 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 ; Acute bilateral low back pain without sciatica M54.5 and BMI 50.0-59.9, adult Z68.43 [place] [address] [address] 02 Mar, 2018 Hypothyroidism E03.9 [place] [id number] [place] [address] Feb, [facility] [id number] [place] [address] 15 Jan, 2018 [place] [id number] [place] [address] 07 Jan, 2018 Acute non-recurrent maxillary sinusitis J01.00 and BMI 50.0-59.9, adult Z68.43 [facility] [place] [id number] [place] [address] 04 Jan, 2018 Congestion of upper respiratory tract J98.8 and BMI 50.0-59.9, adult Z68.43 [place] [address] [place] [address] Dec, Type 2 diabetes mellitus with diabetic neuropathic arthropathy, 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 ; Morbid obesity with BMI of 50.0- 59.9, adult Z68.43 ; Hypothyroidism E03.9 ; Coronary artery disease I25.10 ; Hyperlipidemia LDL goal <70 E78.5 ; Right lower quadrant abdominal pain R10.31 and Acute cystitis with hematuria N30.01 [facility] [id number] [place] [address] Dec, Migraine with aura and without status migrainosus, not intractable G43.109 ; Dehydration symptoms R63.8 and BMI 50.0-59.9, adult Z68.43 [facility] [id number] [place] [address] Oct, [place] [id number] [place] [address] Oct, [facility] [id number] [place] [address] Oct, [facility] [id number] [place] [address] September, [facility] [id number] [place] [address] September, Type 2 diabetes mellitus with diabetic neuropathic arthropathy, 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 ; Hyperlipidemia, unspecified hyperlipidemia type E78.5 ; Personal history of pulmonary embolism Z86.711 ; Coronary artery disease I25.10 and Hypothyroidism E03.9 [facility] [id number] [place] [address] September, [facility] [id number] [place] [address] Aug, Type 2 diabetes mellitus with diabetic [...] without aura and with status migrainosus G43.011 [place] [address] [address] Aug, [place] [address] [address] Aug, [place] [address] [address] Jul, Renal stones N20.0 [facility] [address] [address] Jun, Back pain M54.9 ; Kidney stones N20.0 and BMI 50.0-59.9, adult Z68.43 [place] [address] [address] Jun, [place] [address] [address] Apr, [place] [address] [address] Apr, [place] [address] [address] Apr, Right foot pain M79.671 ; Acute gout involving toe of right foot, 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 and Arthritis M19.90 [place] [address] [address] 06 Apr, 2017 Gastroesophageal reflux disease without esophagitis K21.9 [place] [address] [address] 16 Mar, 2017 Hypothyroidism, unspecified E03.9 [place] [address] [address] Feb, [facility] [id number] [place] [address] 25 Jan, 2017 Cervicalgia of gcvdsuna-qxozsxj-pxofh region M54.2 and Persistent headaches R51 [place] [id number] [place] [address] 20 Jan, 2017 [place] [address] [address] 12 Jan, 2017 Intractable migraine without aura and with status migrainosus G43.011 ; Cervical spine pain M54.2 ; Hyperlipidemia, unspecified hyperlipidemia type E78.5 ; Hypothyroidism E03.9 and Metabolic syndrome E88.81 [place] [id number] [place] [address] Jan, Hypothyroidism, unspecified E03.9 [place] [address] [address] Dec, Hypothyroidism, unspecified E03.9 [place] [id number] [place] [address] Dec, Hypothyroidism E03.9 [place] [id number] [place] [address] Nov, Laceration of left great toe w/o foreign body w/o damage to nail, initial encounter S91.112A [facility] [id number] [place] [address] Oct, Pain in left knee M25.562 and Arthritis M19.90 [place] [id number] [place] [address] Oct, Hypothyroidism, unspecified E03.9 and Hyperlipidemia, unspecified hyperlipidemia type E78.5 [facility] [id number] [place] [address] Oct, Gastroesophageal reflux disease without esophagitis K21.9 [place] [id number] [address] 14 Oct, 2016 Metabolic syndrome E88.81 ; Personal history of pulmonary embolism Z86.711 ; Other specified hypothyroidism E03.8 and Hyperlipidemia, unspecified hyperlipidemia type E78.5 [place] [id number] [place] [address] 13 Oct, 2016 Personal history of pulmonary embolism Z86.711 ; Dysuria R30.0 ; Metabolic syndrome E88.81 ; Other specified hypothyroidism E03.8 ; Hyperlipidemia, unspecified hyperlipidemia type E78.5 and Morbid obesity with BMI of 50.0-59.9, adult Z68.43 [place] [id number] [place] [address] 17 Sep, 2016 [facility] [id number] [place] [address] September, Wrist pain, left M25.532 and Acute pain of left knee M25.562 [place] [id number] [place] [address] Jul, Dysuria R30.0 [place] [id number] [place] [address] 30 Jul, 2016 Dysuria R30.0 [place] [id number] [place] [address] Jul, Left lower quadrant pain R10.32 [place] [address] [id number] [place] [address] 14 Jul, 2016 [place] [id number] [place] [address] 09 Jul, 2016 Coronary artery disease I25.10 ; Family history of diabetes mellitus Z83.3 ; Morbid obesity with BMI of 50.0-59.9, adult Z68.43 ; Metabolic syndrome E88.81 ; Personal history of pulmonary embolism Z86.711 ; Gastroesophageal reflux disease without esophagitis K21.9 ; Hypothyroidism, unspecified E03.9 ; Hyperlipidemia, unspecified hyperlipidemia type E78.5 and Left lower quadrant pain R10.32 [facility] [place] [id number] [place] [address] Jul, [facility] [place] [id number] [place] [address] Jul, Morbid obesity with BMI of 50.0-59.9, adult Z68.43 [facility] [place] [id number] [place] [address] Jul, Generalized abdominal pain R10.84 [facility] [place] [id number] [place] [address] Jun, Muscle strain of right upper back, initial encounter S29.012A [facility] [address] [address] May, Foreign body (FB) in soft tissue M79.5 [place] [id number] [place] [address] Mar, Hypothyroidism, unspecified E03.9 and Arthritis M19.[address] [address] Feb, Coronary artery disease I25.10 ; Morbid obesity with BMI of 50.0- 59.9, adult Z68.43 ; Metabolic syndrome E88.81 ; Gastroesophageal reflux disease without esophagitis K21.9 ; Hypothyroidism, unspecified E03.9 ; Personal history of pulmonary embolism Z86.711 and Hyperlipidemia, unspecified hyperlipidemia type E78.5 [place] [id number] [place] [address] Feb, [facility] [place] [id number] [place] [address] Jan, Acute right-sided thoracic back pain M54.6 [place] [id number] [place] [address] Jan, Acute pain of left knee M25.562 [place] [id number] [place] [address] Dec, Dysuria R30.0 ; Metabolic syndrome E88.81 ; Acute pain of left knee M25.562 ; Acute cystitis with hematuria N30.01 and Acute left eye pain H57.12 [place] [id number] [place] [address] Dec, [place] [address] [address] Dec, [place] [address] [address] Dec, Hypothyroidism, unspecified E03.9 [place] [address] [address] Dec, [place] [address] [address] Nov, Peripheral edema R60.9 and Acute pain of left knee M25.562 [facility] [place] [id number] [place] [address] September, [place] [address] [address] September, Metabolic syndrome E88.81 and Allergy, subsequent encounter T78.40XD [facility] [place] [id number] [place] [address] September, Muscle strain T14.8 [place] [id number] [place] [address] Aug, Chest pressure R07.89 ; Metabolic syndrome E88.81 ; Morbid obesity with BMI of 50.0-59.9, adult Z68.43 ; Esophageal reflux 530.81 and Shortness of breath R06.02 [place] [id number] [place] [address] Aug, [place] [address], [place] [address] Aug, [facility] [id number] [place] [address] Aug, Hypothyroidism, unspecified E03.9 [place] [id number] [place] [address] Aug, Routine health maintenance Z00.00 [facility] [id number] [place] [address] Aug, [facility] [id number] [place] [address] Jul, Routine health maintenance Z00.00 ; Family history of diabetes mellitus Z83.3 ; Family history of cancer Z80.9 and Morbid obesity with BMI of 50.0- 59.9, adult Z68.43 [facility] [place] [address] [id number] [place] [address] Jul, Allergic rhinitis J30.9 and Postnasal drip R09.82 [place] [address] [id number] [place] [address] Jul, Influenza J11.1 [facility] [place] [id number] [place] [address] 08 Jul, 2015 Dysuria R30.0 [place] [address] [id number] [place] [address] Apr, [place] [address] [id number] [place] [address] Mar, Acute upper respiratory infection, unspecified J06.9 and Hypothyroidism E03.9 [place] [address] [id number] [place] [address] Mar, [place] [id number] [place] [address] Feb, Coronary artery disease I25.10 [place] [address], [place] [address] Feb, Left foot pain M79.672 [place] [address] [place] [address] Jan, UTI (urinary tract infection) 599.0 [place] [address] [place] [address] Jan, Urinary tract infection, site not specified 599.0 [place] [address] [place] [address] Jan, Urinary tract infection, site not specified 599.0 [place] [address] [id number] [place] [address] Jan, [place] [address] [place] [address] [id number] [place] [address] Dec, Headache 784.0 [place] [address] [place] [address] [id number] [place] [address] Dec, Urinary tract infection, site not specified 599.0 [place] [address] [address] [id number] [place] [address] Dec, Urinary tract infection, site not specified 599.0 [place] [address] [place] [address] Dec, Urinary tract infection, site not specified 599.0 [place] [address] [place] [address] Nov, Unspecified sleep apnea 780.57 ; Encounter for long-term (current) use of anticoagulants V58.61 ; Routine general medical examination at health care facility V70.0 and Arthritis of both knees 716.96 [place] [address] [place] [address] September, Cat bite of hand 882.0 and Rectal bleeding 569.3 [place] [address] [id number] [place] [address] 14 Aug, 2014 [facility] [place] [facility] [address] [id number] [place] [address] Aug, [facility] [place] [facility] [address] [id number] [place] [address] Jul, [facility] [place] [facility] [address] [id number] [place] [address] Jul, [facility] [place] [facility] [address] [id number] [place] [address] Jul, [facility] [place] [facility] [address] [id number] [place] [address] Jul, [facility] [place] [facility] [address] [id number] [place] [address] Jul, [facility] [place] [facility] [address] [id number] [place] [address] Jul, [facility] [place] [facility] [address] [id number] [place] [address] Jul, [facility] [place] [facility] [address] [id number] [place] [address] Jul, [facility] [place] [facility] [address] [id number] [place] [address] May, [facility] [place] [facility] [address] [id number] [place] [address] May, [facility] [place] [facility] [address] [id number] [place] [address] May, [facility] [place] [facility] [address] [id number] [place] [address] May, [facility] [place] [facility] [address] [id number] [place] [address] May, [facility] [place] [facility] [address] [id number] [place] [address] May, [facility] [place] [facility] [address] [id number] [place] [address] 15 May, 2014 [facility] [place] [facility] [address] [id number] [place] [address] Mar, [facility] [place] [facility] [address] [id number] [place] [address] Mar, [facility] [place] [facility] [address] [id number] [place] [address] 08 Jan, 2013 [facility] [place] [facility] [address] [id number] [place] [address] 08 Jan, 2013 [facility] [place] [facility] [address] [id number] [place] [address] 08 Jan, 2013 [facility] [place] [facility] [address] [id number] [place] [address] Jan, 2013 [facility] [place] [facility] [address] [id number] [place] [address] Jan, 2013 [facility] [place] [facility] [address] [id number] [place] [address] Jan, [facility] [place] [facility] [address] [id number] [place] [address] Dec, [facility] [place] [facility] [address] [id number] [place] [address] Dec, [facility] [place] [facility] [address] [id number] [place] [address] Dec, [facility] [place] [facility] [address] [id number] [place] [address] Dec, [facility] [place] [facility] [address] [id number] [place] [address] Dec, [facility] [place] [facility] [address] [id number] [place] [address] Dec, [facility] [place] [facility] [address] [id number] [place] [address] Dec, [facility] [place] [facility] [address] [id number] [place] [address] Dec, [facility] [place] [facility] [address] [id number] [place] [address] Dec, [facility] [place] [facility] [address] [id number] [place] [address] Dec, [facility] [place] [facility] [address] [id number] [place] [address] Nov, [facility] [place] [facility] [address] [id number] [place] [address] Nov, [facility] [place] [facility] [address] [id number] [place] [address] September, [facility] [place] [facility] [address] [id number] [place] [address] September, [facility] [place] [facility] [address] [id number] [place] [address] September, [facility] [place] [facility] [address] [id number] [place] [address] September, [facility] [place] [facility] [address] [id number] [place] [address] Aug, [facility] [place] [facility] [address] [id number] [place] [address] Aug, [facility] [place] [facility] [address] [id number] [place] [address] Aug, [facility] [place] [facility] [address] [id number] [place] [address] Aug, [facility] [place] [facility] [address] [id number] [place] [address] Aug, [facility] [place] [facility] [address] [id number] [place] [address] Aug, [facility] [place] [facility] [address] [id number] [place] [address] 08 Aug, 2013 [facility] [place] [facility] [address] [id number] [place] [address] 08 Aug, 2013 [facility] [place] [facility] [address] [id number] [place] [address] Aug, [facility] [place] [facility] [address] [id number] [place] [address] Aug, [facility] [place] [facility] [address] [id number] [place] [address] Aug, [facility] [place] [facility] [address] [id number] [place] [address] Aug, [facility] [place] [facility] [address] [id number] [place] [address] Jul, [facility] [place] [facility] [address] [id number] [place] [address] Jul, [facility] [place] [facility] [address] [id number] [place] [address] Jul, [facility] [place] [facility] [address] [id number] [place] [address] Jul, [facility] [place] [facility] [address] [id number] [place] [address] Jul, [facility] [place] [facility] [address] [id number] [place] [address] Jul, [facility] [place] [facility] [address] [id number] [place] [address] 05 Jul, 2013 [facility] [place] [facility] [address] [id number] [place] [address] 05 Jul, 2013 [facility] [place] [facility] [address] [id number] [place] [address] Jul, [facility] [place] [facility] [address] [id number] [place] [address] Jul, [facility] [place] [facility] [address] [id number] [place] [address] Jun, [facility] [place] [facility] [address] [id number] [place] [address] Jun, [facility] [place] [facility] [address] [id number] [place] [address] Jun, [facility] [place] [facility] [address] [id number] [place] [address] Jun, [facility] [place] [facility] [address] [id number] [place] [address] Jun, [facility] [place] [facility] [address] [id number] [place] [address] Jun, [facility] [place] [facility] [address] [id number] [place] [address] Jun, [facility] [place] [facility] [address] [id number] [place] [address] Jun, [facility] [place] [facility] [address] [id number] [place] [address] Jun, [facility] [place] [facility] [address] [id number] [place] [address] Jun, [facility] [place] [facility] [address] [id number] [place] [address] Jun, [facility] [place] [facility] [address] [id number] [place] [address] Jun, [facility] [place] [facility] [address] [id number] [place] [address] May, [facility] [place] [facility] [address] [id number] [place] [address] May, [facility] [place] [facility] [address] [id number] [place] [address] May, [facility] [place] [facility] [address] [id number] [place] [address] May, [facility] [address] [id number] [place] [address] May, [facility] [address] [id number] [place] [address] May, [facility] [address] [id number] [place] [address] May, [facility] [address] [id number] [place] [address] May, [facility] [address] [id number] [place] [address] May, [facility] [address] [id number] [place] [address] May, [facility] [address] [id number] [place] [address] May, [facility] [address] [id number] [place] [address] May, [facility] [address] [id number] [place] [address] May, [facility] [address] [id number] [place] [address] May, [facility] [address] [id number] [place] [address] May, [facility] [address] [id number] [place] [address] Apr, [facility] [address] [id number] [place] [address] Apr, [facility] [address] [id number] [place] [address] Apr, [facility] [address] [id number] [place] [address] Apr, [facility] [place] [facility] [address] [id number] [place] [address] Mar, [facility] [place] [facility] [address] [id number] [place] [address] Mar, [facility] [place] [facility] [address] [id number] [place] [address] Mar, [facility] [place] [facility] [address] [id number] [place] [address] Mar, [facility] [place] [facility] [address] [id number] [place] [address] Mar, [facility] [place] [facility] [address] [id number] [place] [address] Mar, [facility] [place] [facility] [address] [id number] [place] [address] Mar, [facility] [place] [facility] [address] [id number] [place] [address] Mar, [facility] [place] [facility] [address] [id number] [place] [address] Mar, [facility] [place] [facility] [address] [id number], [place] [address] Mar, [facility] [place] [facility] [address] [id number], [place] [address] Mar, [facility] [place] [facility] [address] [id number], [place] [address] Mar, [facility] [place] [facility] [address] [id number], [place] [address] Feb, [facility] [place] [facility] [address] [id number], [place] [address] 18 Jan, 2013 [facility] [place] [facility] [address] [id number], [place] [address] 17 Jan, 2013 [facility] [place] [facility] [address] [id number], [place] [address] 06 Jan, 2013 [facility] [place] [facility] [address] [id number] [place] [address] 04 Jan, 2013 [facility] [place] [facility] [address] [id number] [place] [address] Jan, [facility] [place] [facility] [address] [id number] [place] [address] Dec, [facility] [place] [facility] [address] [id number] [place] [address] Dec, [facility] [place] [facility] [address] [id number] [place] [address] Dec, [facility] [place] [facility] [address] [id number] [place] [address] Dec, [facility] [place] [facility] [address] [id number] [place] [address] Dec, [facility] [place] [facility] [address] [id number] [place] [address] Dec, [facility] [place] [facility] [address] [id number] [place] [address] Dec, [facility] [place] [facility] [address] [id number] [place] [address] Dec, [facility] [place] [facility] [address] [id number] [place] [address] Nov, [facility] [place] [facility] [address] [id number] [place] [address] Nov, [facility] [place] [facility] [address] [id number] [place] [address] Nov, [facility] [place] [facility] [address] [id number] [place] [address] Nov, [facility] [place] [facility] [address] [id number] [place] [address] Nov, [facility] [place] [facility] [address] [id number], [place] [address] Nov, [facility] [place] [facility] [address] [id number], [place] [address] Oct, [facility] [address] [id number] [place] [id number] Oct, [facility] [address] [id number] [place] [address] Oct, [facility] [address] [id number] [place] [address] Oct, [facility] [address] [id number] [place] [id number] Oct, [facility] [place] [facility] [address] [id number], [place] [address] Oct, [facility] [place] [facility] [address] [facility] [id number], [place] [address] Oct, [facility] [place] [facility] [address] [facility] [id number], [place] [address] Oct, [facility] [place] [facility] [address] [facility] [id number], [place] [address] Oct, [facility] [place] [facility] [address] [facility] [id number], [place] [address] Oct, [facility] [place] [facility] [address] [facility] [id number], [place] [address] Oct, [facility] [place] [facility] [address] [id number], [place] [address] September, [facility] [place] [facility] [address] [facility] [id number], [place] [address] Aug, [facility] [place] [facility] [address] [id number], [place] [address] Aug, [facility] [place] [facility] [address] [facility] [id number], [place] [address] Aug, [facility] [place] [facility] [address] [id number] [place] [address] Aug, [facility] [address] [id number] [place] [address] 24 Jul, 2012 [facility] [place] [facility] [address] [id number] [place] [address] Jul, [facility] [address] [id number] [place] [address] Jul, [facility] [place] [facility] [address] [id number] [place] [address] 05 Jul, 2012 [facility] [address] [id number] [place] [address] Jul, [facility] [place] [facility] [address] [id number] [place] [address] 19 Jun, 2012 [facility] [address] [id number] [place] [address] Jun, [facility] [address] [id number] [place] [address] Jun, [facility] [place] [facility] [address] [id number] [place] [address] May, [facility] [address] [id number] [place] [address] 24 May, 2012 [facility] [place] [facility] [address] [id number] [place] [address] May, [facility] [place] [facility] [address] [id number] [place] [address] May, [facility] [place] [facility] [address] [id number] [place] [address] 07 May, 2012 [facility] [place] [facility] [address] [id number] [place] [address] 04 May, 2012 [facility] [place] [facility] [address] [id number] [place] [address] 18 Apr, 2012 [facility] [place] [facility] [address] [id number] [place] [address] 18 Apr, 2012 [facility] [place] [facility] [address] [id number] [place] [address] 13 Apr, 2012 [facility] [address] [id number] [place] [address] Apr, [facility] [place] [facility] [address] [id number] [place] [address] Apr, [facility] [address] [id number] [place] [address] Apr, [facility] [address] [id number] [place] [address] Apr, [facility] [address] [id number] [place] [address] Mar, [facility] [address] [id number] [place] [address] Mar, [facility] [address] [id number] [place] [address] Mar, [facility] [address] [id number] [place] [address] Mar, [facility] [address] [id number] [place] [address] 18 Jan, 2012 [facility] [place] [facility] [address] [id number], [place] [address] Jan, [facility] [place] [facility] [address] [id number] [place] [address] Jan, [facility] [place] [facility] [address] [id number] [place] [address] Jan, [facility] [address] [id number] [id number] Dec, [facility] [place] [facility] [address] [id number] [place] [address] Dec, [facility] [address] [facility] [id number] [place] [id number] Dec, [facility] [address] [facility] [id number], [place] [address] Dec, [facility] [address] [facility] [id number], [place] [address] Dec, [facility] [address] [facility] [id number], [place] [address] Dec, [facility] [address] [facility] [id number], [place] [address] Nov, [facility] [address] [facility] [id number], [place] [address] Nov, [facility] [address] [facility] [id number], [place] [address] Nov, IMMUNIZATIONS No Known Immunizations SOCIAL HISTORY Never Assessed REASON FOR VISIT [facility] PLAN OF CARE VITAL SIGNS MEDICATIONS No [...]
--- OUTSIDE RECORDS SUMMARY | 2018-11-13 20:16 | XMS REPORT ---
Author Author Migration, Doctor Organization [facility] Address Unknown Phone Unavailable Care Team Providers Care Staff Anesthetist Name Role Phone Migration, Doctor Unavailable Unavailable PROBLEMS Type Condition ICD9-CM Code [id number] Code Onset Dates Condition Status SNOMED Code Problem Shortness of breath R06.02 Apr, 0 958752933 Problem Unspecified hypothyroidism E03.9 0 47127364 Problem Generalized anxiety disorder F41.1 Apr, 0 91598306 Problem Esophageal reflux K21.9 0 921106267 Problem Dyslipidemia E78.5 Oct, 0 668004586 Problem Osteoarthritis of right knee M17.11 13 May, 2009 0 739706890 Problem Unspecified sleep apnea G47.30 0 06808667 Problem Morbid obesity with BMI of 50.0-59.9, adult Z68.43 Active 055103475 Problem Migraine with aura and without status migrainosus, not intractable G43.109 Active 4730478 Problem Pulmonary embolus I26.99 13 Oct, 2011 0 70506114 Problem Morbid obesity E66.01 Active 368357453 Problem Nonintractable migraine G43.009 08 Oct, 2015 0 098957937 Problem Hypothyroidism E03.9 Active 63652289 Problem Renal stones N20.0 Active 48489846 Problem Coronary artery disease I25.10 Active 48215226 Problem Hyperlipidemia LDL goal <70 E78.5 Active 75982249 ALLERGIES No Information ENCOUNTERS Encounter Location Date Diagnosis [facility] [address] [address] Aug, Right foot pain M79.671 and Morbid obesity E66.01 [facility] [address] [place] [id number] [place] [address] Jul, Right foot pain M79.671 and Morbid obesity E66.01 [facility] [address], [place] [address] Jul, Injury of right foot, initial encounter S99.921A and Morbid obesity E66.01 [facility] [id number] [place] [address] Jul, Recurrent syncope R55 and Morbid obesity E66.01 [place] [id number] [place] [address] Jul, [place] [id number] [place] [address] Jun, Hematuria, unspecified type R31.9 and BMI 50.0-59.9, adult Z68.43 [place] [id number] [place] [address] Jun, [address] [address] Jun, care home current use of anticoagulant Z79.[address] [facility] [place] [id number] [place] [address] May, Ankle pain, right M25.571 and BMI 50.0-59.9, adult Z68.43 [place] [id number] [place] [address] May, [place] [id number] [place] [address] May, [place] [id number] [place] [address] Apr, [place] [id number] [place] [address] Apr, [place] [id number] [place] [address] Apr, [facility] [id number] [place] [address] Apr, BMI 50.0-59.9, adult Z68.43 and Weakness R53.1 [place] [id number] [place] [address] Apr, 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 [id number] [place] [address] 15 Jan, 2018 [place] [id number] [place] [address] 07 Jan, 2018 Acute non-recurrent maxillary sinusitis J01.00 and BMI 50.0-59.9, adult Z68.43 [facility] [place] [id number] [place] [address] 04 Jan, 2018 Congestion of upper respiratory tract J98.8 and BMI 50.0-59.9, adult Z68.43 [place] [address] [place] [address] Dec, Type 2 diabetes mellitus with diabetic neuropathic arthropathy, 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 ; Morbid obesity with BMI of 50.0- 59.9, adult Z68.43 ; Hypothyroidism E03.9 ; Coronary artery disease I25.10 ; Hyperlipidemia LDL goal <70 E78.5 ; Right lower quadrant abdominal pain R10.31 and Acute cystitis with hematuria N30.01 [facility] [id number] [place] [address] Dec, Migraine with aura and without status migrainosus, not intractable G43.109 ; Dehydration symptoms R63.8 and BMI 50.0-59.9, adult Z68.43 [facility] [id number] [place] [address] Oct, [place] [id number] [place] [address] Oct, [facility] [id number] [place] [address] Oct, [facility] [id number] [place] [address] September, [facility] [id number] [place] [address] September, Type 2 diabetes mellitus with diabetic neuropathic arthropathy, 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 ; Hyperlipidemia, unspecified hyperlipidemia type E78.5 ; Personal history of pulmonary embolism Z86.711 ; Coronary artery disease I25.10 and Hypothyroidism E03.9 [facility] [id number] [place] [address] September, [facility] [id number] [place] [address] Aug, Type 2 diabetes mellitus with diabetic [...] without aura and with status migrainosus G43.011 [place] [address] [address] Aug, [place] [address] [address] Aug, [place] [address] [address] Jul, Renal stones N20.0 [facility] [address] [address] Jun, Back pain M54.9 ; Kidney stones N20.0 and BMI 50.0-59.9, adult Z68.43 [place] [address] [address] Jun, [place] [address] [address] Apr, [place] [address] [address] Apr, [place] [address] [address] Apr, Right foot pain M79.671 ; Acute gout involving toe of right foot, 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 and Arthritis M19.90 [place] [address] [address] 06 Apr, 2017 Gastroesophageal reflux disease without esophagitis K21.9 [place] [address] [address] 16 Mar, 2017 Hypothyroidism, unspecified E03.9 [place] [address] [address] Feb, [facility] [id number] [place] [address] 25 Jan, 2017 Cervicalgia of hqenlonx-npcbfkj-aizno region M54.2 and Persistent headaches R51 [place] [address] [id number] [place] [address] 20 Jan, 2017 [place] [address] [address] 12 Jan, 2017 Intractable migraine without aura and with status migrainosus G43.011 ; Cervical spine pain M54.2 ; Hyperlipidemia, unspecified hyperlipidemia type E78.5 ; Hypothyroidism E03.9 and Metabolic syndrome E88.81 [place] [id number] [place] [address] Jan, Hypothyroidism, unspecified E03.9 [place] [address] [address] Dec, Hypothyroidism, unspecified E03.9 [place] [address] [id number] [place] [address] Dec, Hypothyroidism E03.9 [place] [id number] [place] [address] Nov, Laceration of left great toe w/o foreign body w/o damage to nail, initial encounter S91.112A [facility] [id number] [place] [address] Oct, Pain in left knee M25.562 and Arthritis M19.90 [place] [address] [id number] [place] [address] Oct, Hypothyroidism, unspecified E03.9 and Hyperlipidemia, unspecified hyperlipidemia type E78.5 [facility] [id number] [place] [address] Oct, Gastroesophageal reflux disease without esophagitis K21.9 [place] [id number] [address] 14 Oct, 2016 Metabolic syndrome E88.81 ; Personal history of pulmonary embolism Z86.711 ; Other specified hypothyroidism E03.8 and Hyperlipidemia, unspecified hyperlipidemia type E78.5 [place] [address] [place] [id number] [place] [address] 13 Oct, 2016 Personal history of pulmonary embolism Z86.711 ; Dysuria R30.0 ; Metabolic syndrome E88.81 ; Other specified hypothyroidism E03.8 ; Hyperlipidemia, unspecified hyperlipidemia type E78.5 and Morbid obesity with BMI of 50.0-59.9, adult Z68.43 [place] [address] [place] [id number] [place] [address] 17 Sep, 2016 [facility] [id number] [place] [address] September, Wrist pain, left M25.532 and Acute pain of left knee M25.562 [place] [address] [id number] [place] [address] Jul, Dysuria R30.0 [place] [address] [id number] [place] [address] 30 Jul, 2016 Dysuria R30.0 [place] [address] [id number] [place] [address] Jul, Left lower quadrant pain R10.32 [place] [address] [id number] [place] [address] 14 Jul, 2016 [place] [id number] [place] [address] 09 Jul, 2016 Coronary artery disease I25.10 ; Family history of diabetes mellitus Z83.3 ; Morbid obesity with BMI of 50.0-59.9, adult Z68.43 ; Metabolic syndrome E88.81 ; Personal history of pulmonary embolism Z86.711 ; Gastroesophageal reflux disease without esophagitis K21.9 ; Hypothyroidism, unspecified E03.9 ; Hyperlipidemia, unspecified hyperlipidemia type E78.5 and Left lower quadrant pain R10.[address] [facility] [place] [id number] [place] [address] Jul, [facility] [place] [address] [id number] [place] [address] Jul, Morbid obesity with BMI of 50.0-59.9, adult Z68.[address] [facility] [place] [id number] [place] [address] Jul, Generalized abdominal pain R10.84 [facility] [place] [id number] [place] [address] Jun, Muscle strain of right upper back, initial encounter S29.012A [facility] [address] [address] May, Foreign body (FB) in soft tissue M79.5 [place] [id number] [place] [address] Mar, Hypothyroidism, unspecified E03.9 and Arthritis M19.[address] [address] Feb, Coronary artery disease I25.10 ; Morbid obesity with BMI of 50.0- 59.9, adult Z68.43 ; Metabolic syndrome E88.81 ; Gastroesophageal reflux disease without esophagitis K21.9 ; Hypothyroidism, unspecified E03.9 ; Personal history of pulmonary embolism Z86.711 and Hyperlipidemia, unspecified hyperlipidemia type E78.5 [place] [address] [id number] [place] [address] Feb, [facility] [place] [id number] [place] [address] Jan, Acute right-sided thoracic back pain M54.6 [place] [id number] [place] [address] Jan, Acute pain of left knee M25.562 [place] [address] [id number] [place] [address] Dec, Dysuria R30.0 ; Metabolic syndrome E88.81 ; Acute pain of left knee M25.562 ; Acute cystitis with hematuria N30.01 and Acute left eye pain H57.12 [place] [address] [place] [place] [id number] [place] [address] Dec, [place] [address] [address] Dec, [place] [address] [address] Dec, Hypothyroidism, unspecified E03.9 [place] [address] [address] Dec, [place] [address] [address] Nov, Peripheral edema R60.9 and Acute pain of left knee M25.562 [facility] [place] [id number] [place] [address] September, [place] [address] [address] September, Metabolic syndrome E88.81 and Allergy, subsequent encounter T78.40XD [facility] [place] [id number] [place] [address] September, Muscle strain T14.8 [place] [address] [place] [id number] [place] [address] Aug, Chest pressure R07.89 ; Metabolic syndrome E88.81 ; Morbid obesity with BMI of 50.0-59.9, adult Z68.43 ; Esophageal reflux 530.81 and Shortness of breath R06.02 [place] [address] [place] [id number] [place] [address] Aug, [place] [address], [place] [address] Aug, [facility] [address] [id number] [place] [address] Aug, Hypothyroidism, unspecified E03.9 [place] [address] [id number] [place] [address] Aug, Routine health maintenance Z00.00 [facility] [id number] [place] [address] Aug, [facility] [address] [place] [id number] [place] [address] Jul, Routine health maintenance Z00.00 ; Family history of diabetes mellitus Z83.3 ; Family history of cancer Z80.9 and Morbid obesity with BMI of 50.0- 59.9, adult Z68.43 [facility] [place] [address] [place] [id number] [place] [address] Jul, Allergic rhinitis J30.9 and Postnasal drip R09.82 [place] [address] [place] [id number] [place] [address] Jul, Influenza J11.1 [facility] [place] [id number] [place] [address] 08 Jul, 2015 Dysuria R30.0 [place] [address] [place] [id number] [place] [address] Apr, [place] [address] [place] [id number] [place] [address] Mar, Acute upper respiratory infection, unspecified J06.9 and Hypothyroidism E03.9 [place] [address] [place] [id number] [place] [address] Mar, [place] [address] [place] [id number] [place] [address] Feb, Coronary artery disease I25.10 [place] [address] [address] Feb, Left foot pain M79.672 [place] [address] [place] [address] Jan, UTI (urinary tract infection) 599.0 [place] [id number] [place] [address] Jan, Urinary tract infection, site not specified 599.0 [place] [id number] [place] [address] Jan, Urinary tract infection, site not specified 599.0 [place] [address] [place] [id number] [place] [address] Jan, [place] [address] [place] [id number] [place] [address] Dec, Headache 784.0 [place] [address] [place] [id number] [place] [address] Dec, Urinary tract infection, site not specified 599.0 [place] [address] [place] [id number] [place] [address] Dec, Urinary tract infection, site not specified 599.0 [place] [id number] [place] [address] Dec, Urinary tract infection, site not specified 599.0 [place] [address] [place] [address] Nov, Unspecified sleep apnea 780.57 ; Encounter for long-term (current) use of anticoagulants V58.61 ; Routine general medical examination at health care facility V70.0 and Arthritis of both knees 716.96 [place] [address] [place] [address] September, Cat bite of hand 882.0 and Rectal bleeding 569.3 [place] [address] [place] [id number] [place] [address] 14 Aug, 2014 [facility] [place] [facility] [address] [id number] [place] [address] Aug, [facility] [place] [facility] [address] [id number] [place] [address] Jul, [facility] [place] [facility] [address] [id number] [place] [address] Jul, [facility] [place] [facility] [address] [id number] [place] [address] Jul, [facility] [place] [facility] [address] [id number] [place] [address] Jul, [facility] [place] [facility] [address] [id number] [place] [address] Jul, [facility] [place] [facility] [address] [id number] [place] [address] Jul, [facility] [place] [facility] [address] [id number] [place] [address] Jul, [facility] [place] [facility] [address] [id number] [place] [address] Jul, [facility] [place] [facility] [address] [id number] [place] [address] May, [facility] [place] [facility] [address] [id number] [place] [address] May, [facility] [place] [facility] [address] [id number] [place] [address] May, [facility] [place] [facility] [address] [id number] [place] [address] May, [facility] [place] [facility] [address] [id number] [place] [address] May, [facility] [place] [facility] [address] [id number] [place] [address] May, [facility] [place] [facility] [address] [id number] [place] [address] 15 May, 2014 [facility] [place] [facility] [address] [id number] [place] [address] Mar, [facility] [place] [facility] [address] [id number] [place] [address] Mar, [facility] [place] [facility] [address] [id number] [place] [address] 08 Jan, 2013 [facility] [place] [facility] [address] [id number] [place] [address] 08 Jan, 2013 [facility] [place] [facility] [address] [id number] [place] [address] 08 Jan, 2013 [facility] [place] [facility] [address] [id number] [place] [address] Jan, 2013 [facility] [place] [facility] [address] [id number] [place] [address] Jan, 2013 [facility] [place] [facility] [address] [id number] [place] [address] Jan, [facility] [place] [facility] [address] [id number] [place] [address] Dec, [facility] [place] [facility] [address] [id number] [place] [address] Dec, [facility] [place] [facility] [address] [id number] [place] [address] Dec, [facility] [place] [facility] [address] [id number] [place] [address] Dec, [facility] [place] [facility] [address] [id number] [place] [address] Dec, [facility] [place] [facility] [address] [id number] [place] [address] Dec, [facility] [place] [facility] [address] [id number] [place] [address] Dec, [facility] [place] [facility] [address] [id number] [place] [address] Dec, [facility] [place] [facility] [address] [id number] [place] [address] Dec, [facility] [place] [facility] [address] [id number] [place] [address] Dec, [facility] [place] [facility] [address] [id number] [place] [address] Nov, [facility] [place] [facility] [address] [id number] [place] [address] Nov, [facility] [place] [facility] [address] [id number] [place] [address] September, [facility] [place] [facility] [address] [id number] [place] [address] September, [facility] [place] [facility] [address] [id number] [place] [address] September, [facility] [place] [facility] [address] [id number] [place] [address] September, [facility] [place] [facility] [address] [id number] [place] [address] Aug, [facility] [place] [facility] [address] [id number] [place] [address] Aug, [facility] [place] [facility] [address] [id number] [place] [address] Aug, [facility] [place] [facility] [address] [id number] [place] [address] Aug, [facility] [place] [facility] [address] [id number] [place] [address] Aug, [facility] [place] [facility] [address] [id number] [place] [address] Aug, [facility] [place] [facility] [address] [id number] [place] [address] 08 Aug, 2013 [facility] [place] [facility] [address] [id number] [place] [address] 08 Aug, 2013 [facility] [place] [facility] [address] [id number] [place] [address] Aug, [facility] [place] [facility] [address] [id number] [place] [address] Aug, [facility] [place] [facility] [address] [id number] [place] [address] Aug, [facility] [place] [facility] [address] [id number] [place] [address] Aug, [facility] [place] [facility] [address] [id number] [place] [address] Jul, [facility] [place] [facility] [address] [id number] [place] [address] Jul, [facility] [place] [facility] [address] [id number] [place] [address] Jul, [facility] [place] [facility] [address] [id number] [place] [address] Jul, [facility] [place] [facility] [address] [id number] [place] [address] Jul, [facility] [place] [facility] [address] [id number] [place] [address] Jul, [facility] [place] [facility] [address] [id number] [place] [address] 05 Jul, 2013 [facility] [place] [facility] [address] [id number] [place] [address] 05 Jul, 2013 [facility] [place] [facility] [address] [id number] [place] [address] Jul, [facility] [place] [facility] [address] [id number] [place] [address] Jul, [facility] [place] [facility] [address] [id number] [place] [address] Jun, [facility] [place] [facility] [address] [id number] [place] [address] Jun, [facility] [place] [facility] [address] [id number] [place] [address] Jun, [facility] [place] [facility] [address] [id number] [place] [address] Jun, [facility] [place] [facility] [address] [id number] [place] [address] Jun, [facility] [place] [facility] [address] [id number] [place] [address] Jun, [facility] [place] [facility] [address] [id number] [place] [address] Jun, [facility] [place] [facility] [address] [id number] [place] [address] Jun, [facility] [place] [facility] [address] [id number] [place] [address] Jun, [facility] [place] [facility] [address] [id number] [place] [address] Jun, [facility] [place] [facility] [address] [id number] [place] [address] Jun, [facility] [place] [facility] [address] [id number] [place] [address] Jun, [facility] [place] [facility] [address] [id number] [place] [address] May, [facility] [place] [facility] [address] [id number] [place] [address] May, [facility] [place] [facility] [address] [id number] [place] [address] May, [facility] [place] [facility] [address] [id number] [place] [address] May, [facility] [address] [id number] [place] [address] May, [facility] [address] [id number] [place] [address] May, [facility] [address] [id number] [place] [address] May, [facility] [address] [id number] [place] [address] May, [facility] [address] [id number] [place] [address] May, [facility] [address] [id number] [place] [address] May, [facility] [address] [id number] [place] [address] May, [facility] [address] [id number] [place] [address] May, [facility] [address] [id number] [place] [address] May, [facility] [address] [id number] [place] [address] May, [facility] [address] [id number] [place] [address] May, [facility] [address] [id number] [place] [address] Apr, [facility] [address] [id number] [place] [address] Apr, [facility] [address] [id number] [place] [address] Apr, [facility] [address] [id number] [place] [address] Apr, [facility] [place] [facility] [address] [id number] [place] [address] Mar, [facility] [place] [facility] [address] [id number] [place] [address] Mar, [facility] [place] [facility] [address] [id number] [place] [address] Mar, [facility] [place] [facility] [address] [id number] [place] [address] Mar, [facility] [place] [facility] [address] [id number] [place] [address] Mar, [facility] [place] [facility] [address] [id number] [place] [address] Mar, [facility] [place] [facility] [address] [id number] [place] [address] Mar, [facility] [place] [facility] [address] [id number] [place] [address] Mar, [facility] [place] [facility] [address] [id number] [place] [address] Mar, [facility] [place] [facility] [address] [id number], [place] [address] Mar, [facility] [place] [facility] [address] [id number], [place] [address] Mar, [facility] [place] [facility] [address] [id number], [place] [address] Mar, [facility] [place] [facility] [address] [id number], [place] [address] Feb, [facility] [place] [facility] [address] [id number], [place] [address] 18 Jan, 2013 [facility] [place] [facility] [address] [id number], [place] [address] 17 Jan, 2013 [facility] [place] [facility] [address] [id number], [place] [address] 06 Jan, 2013 [facility] [place] [facility] [address] [id number] [place] [address] 04 Jan, 2013 [facility] [place] [facility] [address] [id number] [place] [address] Jan, [facility] [place] [facility] [address] [id number] [place] [address] Dec, [facility] [place] [facility] [address] [id number] [place] [address] Dec, [facility] [place] [facility] [address] [id number] [place] [address] Dec, [facility] [place] [facility] [address] [id number] [place] [address] Dec, [facility] [place] [facility] [address] [id number] [place] [address] Dec, [facility] [place] [facility] [address] [id number] [place] [address] Dec, [facility] [place] [facility] [address] [id number] [place] [address] Dec, [facility] [place] [facility] [address] [id number] [place] [address] Dec, [facility] [place] [facility] [address] [id number] [place] [address] Nov, [facility] [place] [facility] [address] [id number] [place] [address] Nov, [facility] [place] [facility] [address] [id number] [place] [address] Nov, [facility] [place] [facility] [address] [id number] [place] [address] Nov, [facility] [place] [facility] [address] [id number] [place] [address] Nov, [facility] [place] [facility] [address] [id number], [place] [address] Nov, [facility] [place] [facility] [address] [id number], [place] [address] Oct, [facility] [address] [id number] [place] [id number] Oct, [facility] [address] [id number] [place] [id number] Oct, [facility] [address] [id number] [place] [id number] Oct, [facility] [address] [id number] [place] [id number] Oct, [facility] [place] [facility] [address] [id number], [place] [address] Oct, [facility] [place] [facility] [address] [facility] [id number], [place] [address] Oct, [facility] [place] [facility] [address] [facility] [id number], [place] [address] Oct, [facility] [place] [facility] [address] [facility] [id number], [place] [address] Oct, [facility] [place] [facility] [address] [facility] [id number], [place] [address] Oct, [facility] [place] [facility] [address] [facility] [id number], [place] [address] Oct, [facility] [place] [facility] [address] [id number], [place] [address] September, [facility] [place] [facility] [address] [facility] [id number], [place] [address] Aug, [facility] [place] [facility] [address] [id number], [place] [address] Aug, [facility] [place] [facility] [address] [facility] [id number], [place] [address] Aug, [facility] [place] [facility] [address] [id number] [place] [address] Aug, [facility] [address] [id number] [place] [address] 24 Jul, 2012 [facility] [place] [facility] [address] [id number] [place] [address] Jul, [facility] [address] [id number] [place] [address] Jul, [facility] [place] [facility] [address] [id number] [place] [address] 05 Jul, 2012 [facility] [address] [id number] [place] [address] Jul, [facility] [place] [facility] [address] [id number] [place] [address] 19 Jun, 2012 [facility] [address] [id number] [place] [address] Jun, [facility] [address] [id number] [place] [address] Jun, [facility] [place] [facility] [address] [id number] [place] [address] May, [facility] [address] [id number] [place] [address] 24 May, 2012 [facility] [place] [facility] [address] [id number] [place] [address] May, [facility] [place] [facility] [address] [id number] [place] [address] May, [facility] [place] [facility] [address] [id number] [place] [address] 07 May, 2012 [facility] [place] [facility] [address] [id number] [place] [address] 04 May, 2012 [facility] [place] [facility] [address] [id number] [place] [address] 18 Apr, 2012 [facility] [place] [facility] [address] [id number] [place] [address] 18 Apr, 2012 [facility] [place] [facility] [address] [id number] [place] [address] 13 Apr, 2012 [facility] [address] [id number] [place] [address] Apr, [facility] [place] [facility] [address] [id number] [place] [address] Apr, [facility] [address] [id number] [place] [address] Apr, [facility] [address] [id number] [place] [address] Apr, [facility] [address] [id number] [place] [address] Mar, [facility] [address] [id number] [place] [address] Mar, [facility] [address] [id number] [place] [address] Mar, [facility] [address] [id number] [place] [address] Mar, [facility] [address] [id number] [place] [address] 18 Jan, 2012 [facility] [place] [facility] [address] [id number], [place] [address] Jan, [facility] [place] [facility] [address] [id number] [place] [address] Jan, [facility] [place] [facility] [address] [id number] [place] [address] Jan, [facility] [address] [id number] [id number] Dec, [facility] [place] [facility] [address] [id number] [place] [address] Dec, [facility] [address] [facility] [id number] [place] [id number] Dec, [facility] [address] [facility] [id number], [place] [address] Dec, [facility] [address] [facility] [id number], [place] [address] Dec, [facility] [address] [facility] [id number], [place] [address] Dec, [facility] [address] [facility] [id number], [place] [address] Nov, [facility] [address] [facility] [id number], [place] [address] Nov, [facility] [address] [facility] [id number], [place] [address] Nov, IMMUNIZATIONS No Known Immunizations SOCIAL HISTORY Never Assessed REASON FOR VISIT [facility] PLAN OF CARE VITAL SIGNS MEDICATIONS No [...] asthma(493.90) Medical History Near syncope 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
--- OUTSIDE RECORDS SUMMARY | 2018-11-13 20:17 | XMS REPORT ---
Author Author Migration, Doctor Organization [facility] Address Unknown Phone Unavailable Care Team Providers Care Area Field Manager Name Role Phone Migration, Doctor Unavailable Unavailable PROBLEMS Type Condition ICD9-CM Code ZBP02-YF Code Onset Dates Condition Status SNOMED Code Problem Shortness of breath R06.02 Apr, 0 911782675 Problem Unspecified hypothyroidism E03.9 0 07128574 Problem Generalized anxiety disorder F41.1 Apr, 0 69169201 Problem Esophageal reflux K21.9 0 715964628 Problem Dyslipidemia E78.5 Oct, 0 609743810 Problem Osteoarthritis of right knee M17.11 13 May, 2009 0 293504854 Problem Unspecified sleep apnea G47.30 0 80718063 Problem Morbid obesity with BMI of 50.0-59.9, adult Z68.43 Active 675158495 Problem Migraine with aura and without status migrainosus, not intractable G43.109 Active 9160908 Problem Pulmonary embolus I26.99 13 Oct, 2011 0 02072997 Problem Morbid obesity E66.01 Active 260521107 Problem Nonintractable migraine G43.009 08 Oct, 2015 0 556606373 Problem Hypothyroidism E03.9 Active 14182630 Problem Renal stones N20.0 Active 09823633 Problem Coronary artery disease I25.10 Active 41363002 Problem Hyperlipidemia LDL goal <70 E78.5 Active 22023016 ALLERGIES No Information ENCOUNTERS Encounter Location Date Diagnosis [facility] [address] [address] Aug, Right foot pain M79.671 and Morbid obesity E66.01 [facility] [address] [id number] [place] [address] Jul, Right foot pain M79.671 and Morbid obesity E66.01 [facility] [address] [address] Jul, Injury of right foot, initial encounter S99.921A and Morbid obesity E66.01 [facility] [id number] [place] [address] Jul, Recurrent syncope R55 and Morbid obesity E66.01 [place] [id number] [place] [address] Jul, [place] [id number] [place] [address] Jun, Hematuria, unspecified type R31.9 and BMI 50.0-59.9, adult Z68.43 [place] [id number] [place] [address] Jun, [address] [address] Jun, group home current use of anticoagulant Z79.01 [facility] [place] [id number] [place] [address] May, Ankle pain, right M25.571 and BMI 50.0-59.9, adult Z68.43 [place] [id number] [place] [address] May, [place] [id number] [place] [address] May, [place] [id number] [place] [address] Apr, [place] [id number] [place] [address] Apr, [place] [id number] [place] [address] Apr, [facility] [id number] [place] [address] Apr, BMI 50.0-59.9, adult Z68.43 and Weakness R53.1 [place] [id number] [place] [address] Apr, [facility] [address] [address] Apr, Dysuria R30.0 ; Hematuria R31.9 ; Renal lithiasis N20.0 and BMI 50.0- 59.9, adult Z68.43 [place] [address] [address] Apr, [place] [address] [address] Apr, [place] [address] [address] 05 Apr, 2018 Hypothyroidism E03.9 [place] [address] [address] 04 Apr, 2018 Burning with urination R30.0 ; Type 2 diabetes mellitus with diabetic neuropathic arthropathy, 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 ; Acute bilateral low back pain without sciatica M54.5 and BMI 50.0-59.9, adult Z68.43 [place] [address] [address] 02 Mar, 2018 Hypothyroidism E03.9 [place] [id number] [place] [address] Feb, [facility] [id number] [place] [address] 15 Jan, 2018 [place] [id number] [place] [address] 07 Jan, 2018 Acute non-recurrent maxillary sinusitis J01.00 and BMI 50.0-59.9, adult Z68.43 [facility] [place] [id number] [place] [address] 04 Jan, 2018 Congestion of upper respiratory tract J98.8 and BMI 50.0-59.9, adult Z68.43 [place] [address] [place] [address] Dec, Type 2 diabetes mellitus with diabetic neuropathic arthropathy, 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 ; Morbid obesity with BMI of 50.0- 59.9, adult Z68.43 ; Hypothyroidism E03.9 ; Coronary artery disease I25.10 ; Hyperlipidemia LDL goal <70 E78.5 ; Right lower quadrant abdominal pain R10.31 and Acute cystitis with hematuria N30.01 [facility] [id number] [place] [address] Dec, Migraine with aura and without status migrainosus, not intractable G43.109 ; Dehydration symptoms R63.8 and BMI 50.0-59.9, adult Z68.43 [facility] [id number] [place] [address] Oct, [place] [id number] [place] [address] Oct, [facility] [id number] [place] [address] Oct, [facility] [id number] [place] [address] September, [facility] [id number] [place] [address] September, Type 2 diabetes mellitus with diabetic neuropathic arthropathy, 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 ; Hyperlipidemia, unspecified hyperlipidemia type E78.5 ; Personal history of pulmonary embolism Z86.711 ; Coronary artery disease I25.10 and Hypothyroidism E03.9 [facility] [id number] [place] [address] September, [facility] [id number] [place] [address] Aug, Type 2 diabetes mellitus with diabetic [...] without aura and with status migrainosus G43.011 [place] [address] [address] Aug, [place] [address] [address] Aug, [place] [address] [address] Jul, Renal stones N20.0 [facility] [address] [address] Jun, Back pain M54.9 ; Kidney stones N20.0 and BMI 50.0-59.9, adult Z68.43 [place] [address] [address] Jun, [place] [address] [address] Apr, [place] [address] [address] Apr, [place] [address] [address] Apr, Right foot pain M79.671 ; Acute gout involving toe of right foot, 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 and Arthritis M19.90 [place] [address] [address] 06 Apr, 2017 Gastroesophageal reflux disease without esophagitis K21.9 [place] [address] [address] 16 Mar, 2017 Hypothyroidism, unspecified E03.9 [place] [address] [address] Feb, [facility] [id number] [place] [address] 25 Jan, 2017 Cervicalgia of zwuzyrry-pfgtlyq-lwvxo region M54.2 and Persistent headaches R51 [place] [address] [id number] [place] [address] 20 Jan, 2017 [place] [address] [address] 12 Jan, 2017 Intractable migraine without aura and with status migrainosus G43.011 ; Cervical spine pain M54.2 ; Hyperlipidemia, unspecified hyperlipidemia type E78.5 ; Hypothyroidism E03.9 and Metabolic syndrome E88.81 [place] [address] [id number] [place] [address] Jan, Hypothyroidism, unspecified E03.9 [place] [address] [address] Dec, Hypothyroidism, unspecified E03.9 [place] [id number] [place] [address] Dec, Hypothyroidism E03.9 [place] [id number] [place] [address] Nov, Laceration of left great toe w/o foreign body w/o damage to nail, initial encounter S91.112A [facility] [id number] [place] [address] Oct, Pain in left knee M25.562 and Arthritis M19.90 [place] [address] [id number] [place] [address] Oct, Hypothyroidism, unspecified E03.9 and Hyperlipidemia, unspecified hyperlipidemia type E78.5 [facility] [id number] [place] [address] Oct, Gastroesophageal reflux disease without esophagitis K21.9 [place] [id number] [address] 14 Oct, 2016 Metabolic syndrome E88.81 ; Personal history of pulmonary embolism Z86.711 ; Other specified hypothyroidism E03.8 and Hyperlipidemia, unspecified hyperlipidemia type E78.5 [place] [id number] [place] [address] 13 Oct, 2016 Personal history of pulmonary embolism Z86.711 ; Dysuria R30.0 ; Metabolic syndrome E88.81 ; Other specified hypothyroidism E03.8 ; Hyperlipidemia, unspecified hyperlipidemia type E78.5 and Morbid obesity with BMI of 50.0-59.9, adult Z68.43 [place] [address] [id number] [place] [address] 17 Sep, 2016 [facility] [address] [id number] [place] [address] September, Wrist pain, left M25.532 and Acute pain of left knee M25.562 [place] [address] [id number] [place] [address] Jul, Dysuria R30.0 [place] [id number] [place] [address] 30 Jul, 2016 Dysuria R30.0 [place] [address] [place] [id number] [place] [address] Jul, Left lower quadrant pain R10.32 [place] [address] [id number] [place] [address] 14 Jul, 2016 [place] [address] [id number] [place] [address] 09 Jul, 2016 Coronary artery disease I25.10 ; Family history of diabetes mellitus Z83.3 ; Morbid obesity with BMI of 50.0-59.9, adult Z68.43 ; Metabolic syndrome E88.81 ; Personal history of pulmonary embolism Z86.711 ; Gastroesophageal reflux disease without esophagitis K21.9 ; Hypothyroidism, unspecified E03.9 ; Hyperlipidemia, unspecified hyperlipidemia type E78.5 and Left lower quadrant pain R10.32 [facility] [place] [id number] [place] [address] Jul, [facility] [place] [address] [id number] [place] [address] Jul, Morbid obesity with BMI of 50.0-59.9, adult Z68.43 [facility] [place] [id number] [place] [address] Jul, Generalized abdominal pain R10.84 [facility] IN [place] [id number] [place] [address] Jun, Muscle strain of right upper back, initial encounter S29.012A [facility] IN [address] [address] May, Foreign body (FB) in soft tissue M79.5 [place] [id number] [place] [address] Mar, Hypothyroidism, unspecified E03.9 and Arthritis M19.[address] [address] Feb, Coronary artery disease I25.10 ; Morbid obesity with BMI of 50.0- 59.9, adult Z68.43 ; Metabolic syndrome E88.81 ; Gastroesophageal reflux disease without esophagitis K21.9 ; Hypothyroidism, unspecified E03.9 ; Personal history of pulmonary embolism Z86.711 and Hyperlipidemia, unspecified hyperlipidemia type E78.5 [place] [id number] [place] [address] Feb, [facility] [place] [id number] [place] [address] Jan, Acute right-sided thoracic back pain M54.6 [place] [id number] [place] [address] Jan, Acute pain of left knee M25.562 [place] [address] [id number] [place] [address] Dec, Dysuria R30.0 ; Metabolic syndrome E88.81 ; Acute pain of left knee M25.562 ; Acute cystitis with hematuria N30.01 and Acute left eye pain H57.12 [place] [address] [id number] [place] [address] Dec, [place] [address] [address] Dec, [place] [address] [address] Dec, Hypothyroidism, unspecified E03.9 [place] [address] [address] Dec, [place] [address] [address] Nov, Peripheral edema R60.9 and Acute pain of left knee M25.562 [facility] IN [place] [id number] [place] [address] September, [place] [address] [address] September, Metabolic syndrome E88.81 and Allergy, subsequent encounter T78.40XD [facility] IN [place] [id number] [place] [address] September, Muscle strain T14.8 [place] [address] [place] [id number] [place] [address] Aug, Chest pressure R07.89 ; Metabolic syndrome E88.81 ; Morbid obesity with BMI of 50.0-59.9, adult Z68.43 ; Esophageal reflux 530.81 and Shortness of breath R06.02 [place] [address] [place] [id number] [place] [address] Aug, [place] [address] [address] Aug, [facility] [address] [place] [id number] [place] [address] Aug, Hypothyroidism, unspecified E03.9 [place] [address] [place] [id number] [place] [address] Aug, Routine health maintenance Z00.00 [facility] [address] [place] [id number] [place] [address] Aug, [facility] [address] [place] [id number] [place] [address] Jul, Routine health maintenance Z00.00 ; Family history of diabetes mellitus Z83.3 ; Family history of cancer Z80.9 and Morbid obesity with BMI of 50.0- 59.9, adult Z68.43 [facility] IN [place] [address] [place] [id number] [place] [address] Jul, Allergic rhinitis J30.9 and Postnasal drip R09.82 [place] [address] [place] [id number] [place] [address] Jul, Influenza J11.1 [facility] [place] [id number] [place] [address] 08 Jul, 2015 Dysuria R30.0 [place] [address] [place] [id number] [place] [address] Apr, [place] [address] [place] [id number] [place] [address] Mar, Acute upper respiratory infection, unspecified J06.9 and Hypothyroidism E03.9 [place] [address] [place] [id number] [place] [address] Mar, [place] [address] [place] [id number] [place] [address] Feb, Coronary artery disease I25.10 [place] [address] [address] Feb, Left foot pain M79.672 [place] [address] [place] [address] Jan, UTI (urinary tract infection) 599.0 [place] [address] [place] [address] Jan, Urinary tract infection, site not specified 599.0 [place] [address] [place] [address] Jan, Urinary tract infection, site not specified 599.0 [place] [address] [place] [id number] [place] [address] Jan, [place] [address] [place] [id number] [place] [address] Dec, Headache 784.0 [place] [address] [place] [id number] [place] [address] Dec, Urinary tract infection, site not specified 599.0 [place] [address] [place] [id number] [place] [address] Dec, Urinary tract infection, site not specified 599.0 [place] [address] [place] [address] Dec, Urinary tract infection, site not specified 599.0 [place] [address] [place] [address] Nov, Unspecified sleep apnea 780.57 ; Encounter for long-term (current) use of anticoagulants V58.61 ; Routine general medical examination at health care facility V70.0 and Arthritis of both knees 716.96 [place] [address] [place] [address] September, Cat bite of hand 882.0 and Rectal bleeding 569.3 [place] [address] [place] [id number] [place] [address] 14 Aug, 2014 [facility] [place] [facility] [address] [id number] [place] [address] Aug, [facility] [place] [facility] [address] [id number] [place] [address] Jul, [facility] [place] [facility] [address] [id number] [place] [address] Jul, [facility] [place] [facility] [address] [id number] [place] [address] Jul, [facility] [place] [facility] [address] [id number] [place] [address] Jul, [facility] [place] [facility] [address] [id number] [place] [address] Jul, [facility] [place] [facility] [address] [id number] [place] [address] Jul, [facility] [place] [facility] [address] [id number] [place] [address] Jul, [facility] [place] [facility] [address] [id number] [place] [address] Jul, [facility] [place] [facility] [address] [id number] [place] [address] May, [facility] [place] [facility] [address] [id number] [place] [address] May, [facility] [place] [facility] [address] [id number] [place] [address] May, [facility] [place] [facility] [address] [id number] [place] [address] May, [facility] [place] [facility] [address] [id number] [place] [address] May, [facility] [place] [facility] [address] [id number] [place] [address] May, [facility] [place] [facility] [address] [id number] [place] [address] 15 May, 2014 [facility] [place] [facility] [address] [id number] [place] [address] Mar, [facility] [place] [facility] [address] [id number] [place] [address] Mar, [facility] [place] [facility] [address] [id number] [place] [address] 08 Jan, 2013 [facility] [place] [facility] [address] [id number] [place] [address] 08 Jan, 2013 [facility] [place] [facility] [address] [id number] [place] [address] 08 Jan, 2013 [facility] [place] [facility] [address] [id number] [place] [address] Jan, 2013 [facility] [place] [facility] [address] [id number] [place] [address] Jan, 2013 [facility] [place] [facility] [address] [id number] [place] [address] Jan, [facility] [place] [facility] [address] [id number] [place] [address] Dec, [facility] [place] [facility] [address] [id number] [place] [address] Dec, [facility] [place] [facility] [address] [id number] [place] [address] Dec, [facility] [place] [facility] [address] [id number] [place] [address] Dec, [facility] [place] [facility] [address] [id number] [place] [address] Dec, [facility] [place] [facility] [address] [id number] [place] [address] Dec, [facility] [place] [facility] [address] [id number] [place] [address] Dec, [facility] [place] [facility] [address] [id number] [place] [address] Dec, [facility] [place] [facility] [address] [id number] [place] [address] Dec, [facility] [place] [facility] [address] [id number] [place] [address] Dec, [facility] [place] [facility] [address] [id number] [place] [address] Nov, [facility] [place] [facility] [address] [id number] [place] [address] Nov, [facility] [place] [facility] [address] [id number] [place] [address] September, [facility] [place] [facility] [address] [id number] [place] [address] September, [facility] [place] [facility] [address] [id number] [place] [address] September, [facility] [place] [facility] [address] [id number] [place] [address] September, [facility] [place] [facility] [address] [id number] [place] [address] Aug, [facility] [place] [facility] [address] [id number] [place] [address] Aug, [facility] [place] [facility] [address] [id number] [place] [address] Aug, [facility] [place] [facility] [address] [id number] [place] [address] Aug, [facility] [place] [facility] [address] [id number] [place] [address] Aug, [facility] [place] [facility] [address] [id number] [place] [address] Aug, [facility] [place] [facility] [address] [id number] [place] [address] 08 Aug, 2013 [facility] [place] [facility] [address] [id number] [place] [address] 08 Aug, 2013 [facility] [place] [facility] [address] [id number] [place] [address] Aug, [facility] [place] [facility] [address] [id number] [place] [address] Aug, [facility] [place] [facility] [address] [id number] [place] [address] Aug, [facility] [place] [facility] [address] [id number] [place] [address] Aug, [facility] [place] [facility] [address] [id number] [place] [address] Jul, [facility] [place] [facility] [address] [id number] [place] [address] Jul, [facility] [place] [facility] [address] [id number] [place] [address] Jul, [facility] [place] [facility] [address] [id number] [place] [address] Jul, [facility] [place] [facility] [address] [id number] [place] [address] Jul, [facility] [place] [facility] [address] [id number] [place] [address] Jul, [facility] [place] [facility] [address] [id number] [place] [address] 05 Jul, 2013 [facility] [place] [facility] [address] [id number] [place] [address] 05 Jul, 2013 [facility] [place] [facility] [address] [id number] [place] [address] Jul, [facility] [place] [facility] [address] [id number] [place] [address] Jul, [facility] [place] [facility] [address] [id number] [place] [address] Jun, [facility] [place] [facility] [address] [id number] [place] [address] Jun, [facility] [place] [facility] [address] [id number] [place] [address] Jun, [facility] [place] [facility] [address] [id number] [place] [address] Jun, [facility] [place] [facility] [address] [id number] [place] [address] Jun, [facility] [place] [facility] [address] [id number] [place] [address] Jun, [facility] [place] [facility] [address] [id number] [place] [address] Jun, [facility] [place] [facility] [address] [id number] [place] [address] Jun, [facility] [place] [facility] [address] [id number] [place] [address] Jun, [facility] [place] [facility] [address] [id number] [place] [address] Jun, [facility] [place] [facility] [address] [id number] [place] [address] Jun, [facility] [place] [facility] [address] [id number] [place] [address] Jun, [facility] [place] [facility] [address] [address] [id number] [place] [address] May, [facility] [place] [facility] [address] [id number] [place] [address] May, [facility] [place] [facility] [address] [id number] [place] [address] May, [facility] [place] [facility] [address] [id number] [place] [address] May, [facility] [address] [id number] [place] [address] May, [facility] [address] [id number] [place] [address] May, [facility] [address] [id number] [place] [address] May, [facility] [address] [id number] [place] [address] May, [facility] [address] [id number] [place] [address] May, [facility] [address] [id number] [place] [address] May, [facility] [address] [id number] [place] [address] May, [facility] [address] [id number] [place] [address] May, [facility] [address] [id number] [place] [address] May, [facility] [address] [id number] [place] [address] May, [facility] [address] [id number] [place] [address] May, [facility] [address] [id number] [place] [address] Apr, [facility] [address] [id number] [place] [address] Apr, [facility] [address] [id number] [place] [address] Apr, [facility] [address] [id number] [place] [address] Apr, [facility] [place] [facility] [address] [id number] [place] [address] Mar, [facility] [place] [facility] [address] [id number] [place] [address] Mar, [facility] [place] [facility] [address] [id number] [place] [address] Mar, [facility] [place] [facility] [address] [id number] [place] [address] Mar, [facility] [place] [facility] [address] [id number] [place] [address] Mar, [facility] [place] [facility] [address] [id number] [place] [address] Mar, [facility] [place] [facility] [address] [id number] [place] [address] Mar, [facility] [place] [facility] [address] [id number] [place] [address] Mar, [facility] [place] [facility] [address] [id number] [place] [address] Mar, [facility] [place] [facility] [address] [id number] [address] Mar, [facility] [place] [facility] [address] [id number] [place] [address] Mar, [facility] [place] [facility] [address] [id number] [place] [address] Mar, [facility] [place] [facility] [address] [id number] [address] Feb, [facility] [place] [facility] [address] [id number] [address] 18 Jan, 2013 [facility] [place] [facility] [address] [id number] [address] 17 Jan, 2013 [facility] [place] [facility] [address] [id number] [address] 06 Jan, 2013 [facility] [place] [facility] [address] [id number] [place] [address] 04 Jan, 2013 [facility] [place] [facility] [address] [id number] [place] [address] Jan, [facility] [place] [facility] [address] [id number] [place] [address] Dec, [facility] [place] [facility] [address] [id number] [place] [address] Dec, [facility] [place] [facility] [address] [id number] [place] [address] Dec, [facility] [place] [facility] [address] [id number] [place] [address] Dec, [facility] [place] [facility] [address] [id number] [place] [address] Dec, [facility] [place] [facility] [address] [id number] [place] [address] Dec, [facility] [place] [facility] [address] [id number] [place] [address] Dec, [facility] [place] [facility] [address] [id number] [place] [address] Dec, [facility] [place] [facility] [address] [id number] [place] [address] Nov, [facility] [place] [facility] [address] [id number] [place] [address] Nov, [facility] [place] [facility] [address] [id number] [place] [address] Nov, [facility] [place] [facility] [address] [id number] [place] [address] Nov, [facility] [place] [facility] [address] [id number] [place] [address] Nov, [facility] [place] [facility] [address] [id number] [place] [address] Nov, [facility] [place] [facility] [address] [id number] [place] [address] Oct, [facility] [address] [id number] [place] [id number] Oct, [facility] [address] [id number] [place] [id number] Oct, [facility] [address] [id number] [place] [id number] Oct, [facility] [address] [id number] [place] [id number] Oct, [facility] [place] [facility] [address] [id number] [place] [address] Oct, [facility] [place] [facility] [address] [facility] [id number] [place] [address] Oct, [facility] [place] [facility] [address] [facility] [id number] [place] [address] Oct, [facility] [place] [facility] [address] [facility] [id number] [place] [address] Oct, [facility] [place] [facility] [address] [facility] [id number] [place] [address] Oct, [facility] [place] [facility] [address] [facility] [id number] [place] [address] Oct, [facility] [place] [facility] [address] [id number] [place] [address] September, [facility] [place] [facility] [address] [facility] [id number] [place] [address] Aug, [facility] [place] [facility] [address] [id number] [place] [address] Aug, [facility] [place] [facility] [address] [facility] [id number] [place] [address] Aug, [facility] [place] [facility] [address] [id number] [place] [address] Aug, [facility] [address] [id number] [place] [address] 24 Jul, 2012 [facility] [place] [facility] [address] [id number] [place] [address] Jul, [facility] [address] [id number] [place] [address] Jul, [facility] [place] [facility] [address] [id number] [place] [address] 05 Jul, 2012 [facility] [address] [id number] [place] [address] Jul, [facility] [place] [facility] [address] [id number] [place] [address] 19 Jun, 2012 [facility] [address] [id number] [place] [address] Jun, [facility] [address] [id number] [place] [address] Jun, [facility] [place] [facility] [address] [id number] [place] [address] May, [facility] [address] [id number] [place] [address] 24 May, 2012 [facility] [place] [facility] [address] [id number] [place] [address] May, [facility] [place] [facility] [address] [id number] [place] [address] May, [facility] [place] [facility] [address] [id number] [place] [address] 07 May, 2012 [facility] [place] [facility] [address] [id number] [place] [address] 04 May, 2012 [facility] [place] [facility] [address] [id number] [place] [address] 18 Apr, 2012 [facility] [place] [facility] [address] [id number] [place] [address] 18 Apr, 2012 [facility] [place] [facility] [address] [id number] [place] [address] 13 Apr, 2012 [facility] [address] [id number] [place] [address] Apr, [facility] [place] [facility] [address] [id number] [place] [address] Apr, [facility] [address] [id number] [place] [address] Apr, [facility] [address] [id number] [place] [address] Apr, [facility] [address] [id number] [place] [address] Mar, [facility] [address] [id number] [place] [address] Mar, [facility] [address] [id number] [place] [address] Mar, [facility] [address] [id number] [place] [address] Mar, [facility] [address] [id number] [place] [address] 18 Jan, 2012 [facility] [place] [facility] [address] [id number] [place] [address] Jan, [facility] [place] [facility] [address] [id number] [place] [address] Jan, [facility] [place] [facility] [address] [id number] [place] [address] Jan, [facility] [address] [id number] [id number] Dec, [facility] [place] [facility] [address] [id number] [place] [address] Dec, [facility] [address] [facility] [id number] [place] [id number] Dec, [facility] [address] [facility] [id number] [place] [address] Dec, [facility] [address] [facility] [id number] [place] [address] Dec, [facility] [address] [facility] [id number] [place] [address] Dec, [facility] [address] [facility] [id number] [place] [address] Nov, [facility] [address] [facility] [id number] [address] Nov, [facility] [address] [facility] [id number] [place] [address] Nov, IMMUNIZATIONS No Known Immunizations SOCIAL HISTORY Never Assessed REASON FOR VISIT [facility] PLAN OF CARE VITAL SIGNS MEDICATIONS No [...] asthma(493.90) Medical History Near syncope 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
--- OUTSIDE RECORDS SUMMARY | 2018-11-13 20:17 | XMS REPORT ---
Author Author Migration, Doctor Organization [facility] Address Unknown Phone Unavailable Care Team Providers Care Field Sales Trainer Name Role Phone Migration, Doctor Unavailable Unavailable PROBLEMS Type Condition ICD9-CM Code GZX12-RR Code Onset Dates Condition Status SNOMED Code Problem Shortness of breath R06.02 Apr, 0 017187259 Problem Unspecified hypothyroidism E03.9 0 73612943 Problem Generalized anxiety disorder F41.1 Apr, 0 73489381 Problem Esophageal reflux K21.9 0 339324856 Problem Dyslipidemia E78.5 Oct, 0 053026575 Problem Osteoarthritis of right knee M17.11 13 May, 2009 0 493193953 Problem Unspecified sleep apnea G47.30 0 31323360 Problem Morbid obesity with BMI of 50.0-59.9, adult Z68.43 Active 394527915 Problem Migraine with aura and without status migrainosus, not intractable G43.109 Active 8778132 Problem Pulmonary embolus I26.99 13 Oct, 2011 0 78727187 Problem Morbid obesity E66.01 Active 856997180 Problem Nonintractable migraine G43.009 08 Oct, 2015 0 666884906 Problem Hypothyroidism E03.9 Active 34067778 Problem Renal stones N20.0 Active 92918805 Problem Coronary artery disease I25.10 Active 37110011 Problem Hyperlipidemia LDL goal <70 E78.5 Active 84920617 ALLERGIES No Information ENCOUNTERS Encounter Location Date Diagnosis [facility] [address] [address] Aug, Right foot pain M79.671 and Morbid obesity E66.01 [facility] [id number] [place] [address] Jul, Right foot pain M79.671 and Morbid obesity E66.[address] [facility] [address], [place] [address] Jul, Injury of right foot, initial encounter S99.921A and Morbid obesity E66.01 [facility] [id number] [place] [address] Jul, Recurrent syncope R55 and Morbid obesity E66.01 [place] [id number] [place] [address] Jul, [place] [id number] [place] [address] Jun, Hematuria, unspecified type R31.9 and BMI 50.0-59.9, adult Z68.43 [place] [id number] [place] [address] Jun, [address] [address] Jun, [facility] current use of anticoagulant Z79.01 [facility] [place] [id number] [place] [address] May, Ankle pain, right M25.571 and BMI 50.0-59.9, adult Z68.43 [place] [id number] [place] [address] May, [place] [id number] [place] [address] May, [place] [id number] [place] [address] Apr, [place] [id number] [place] [address] Apr, [place] [id number] [place] [address] Apr, [facility] [id number] [place] [address] Apr, BMI 50.0-59.9, adult Z68.43 and Weakness R53.1 [place] [id number] [place] [address] Apr, [facility] [address] [address] Apr, Dysuria R30.0 ; Hematuria R31.9 ; Renal lithiasis N20.0 and BMI 50.0- 59.9, adult Z68.43 [place] [address] [address] Apr, [place] [address] [address] Apr, [place] [address] [address] 05 Apr, 2018 Hypothyroidism E03.9 [place] [address] [address] 04 Apr, 2018 Burning with urination R30.0 ; Type 2 diabetes mellitus with diabetic neuropathic arthropathy, 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 ; Acute bilateral low back pain without sciatica M54.5 and BMI 50.0-59.9, adult Z68.43 [place] [address] [address] 02 Mar, 2018 Hypothyroidism E03.9 [place] [id number] [place] [address] Feb, [facility] [id number] [place] [address] 15 Jan, 2018 [place] [id number] [place] [address] 07 Jan, 2018 Acute non-recurrent maxillary sinusitis J01.00 and BMI 50.0-59.9, adult Z68.[address] 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 ; Morbid obesity with BMI of 50.0- 59.9, adult Z68.43 ; Hypothyroidism E03.9 ; Coronary artery disease I25.10 ; Hyperlipidemia LDL goal <70 E78.5 ; Right lower quadrant abdominal pain R10.31 and Acute cystitis with hematuria N30.01 [facility] [id number] [place] [address] Dec, Migraine with aura and without status migrainosus, not intractable G43.109 ; Dehydration symptoms R63.8 and BMI 50.0-59.9, adult Z68.43 [facility] [id number] [place] [address] Oct, [place] [id number] [place] [address] Oct, [facility] [id number] [place] [address] Oct, [facility] [id number] [place] [address] September, [facility] [id number] [place] [address] September, Type 2 diabetes mellitus with diabetic neuropathic arthropathy, 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 ; Hyperlipidemia, unspecified hyperlipidemia type E78.5 ; Personal history of pulmonary embolism Z86.711 ; Coronary artery disease I25.10 and Hypothyroidism E03.9 [facility] [id number] [place] [address] September, [facility] [id number] [place] [address] Aug, Type 2 diabetes mellitus with diabetic [...] without aura and with status migrainosus G43.011 [place] [address] [address] Aug, [place] [address] [address] Aug, [place] [address] [address] Jul, Renal stones N20.[address] [facility] [address] [address] Jun, Back pain M54.9 ; Kidney stones N20.0 and BMI 50.0-59.9, adult Z68.43 [place] [address] [address] Jun, [place] [address] [address] Apr, [place] [address] [address] Apr, [place] [address] [address] Apr, Right foot pain M79.671 ; Acute gout involving toe of right foot, 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 and Arthritis M19.90 [place] [address] [address] 06 Apr, 2017 Gastroesophageal reflux disease without esophagitis K21.9 [place] [address] [address] 16 Mar, 2017 Hypothyroidism, unspecified E03.9 [place] [address] [address] Feb, [facility] [id number] [place] [address] 25 Jan, 2017 Cervicalgia of doggycrq-bofondk-mvrhn region M54.2 and Persistent headaches R51 [place] [id number] [place] [address] 20 Jan, 2017 [place] [address] [address] 12 Jan, 2017 Intractable migraine without aura and with status migrainosus G43.011 ; Cervical spine pain M54.2 ; Hyperlipidemia, unspecified hyperlipidemia type E78.5 ; Hypothyroidism E03.9 and Metabolic syndrome E88.81 [place] [id number] [place] [address] Jan, Hypothyroidism, unspecified E03.9 [place] [address] [address] Dec, Hypothyroidism, unspecified E03.9 [place] [id number] [place] [address] Dec, Hypothyroidism E03.9 [place] [id number] [place] [address] Nov, Laceration of left great toe w/o foreign body w/o damage to nail, initial encounter S91.112A [facility] [id number] [place] [address] Oct, Pain in left knee M25.562 and Arthritis M19.90 [place] [id number] [place] [address] Oct, Hypothyroidism, unspecified E03.9 and Hyperlipidemia, unspecified hyperlipidemia type E78.5 [facility] [id number] [place] [address] Oct, Gastroesophageal reflux disease without esophagitis K21.9 [place] [id number] [address] 14 Oct, 2016 Metabolic syndrome E88.81 ; Personal history of pulmonary embolism Z86.711 ; Other specified hypothyroidism E03.8 and Hyperlipidemia, unspecified hyperlipidemia type E78.5 [place] [id number] [place] [address] 13 Oct, 2016 Personal history of pulmonary embolism Z86.711 ; Dysuria R30.0 ; Metabolic syndrome E88.81 ; Other specified hypothyroidism E03.8 ; Hyperlipidemia, unspecified hyperlipidemia type E78.5 and Morbid obesity with BMI of 50.0-59.9, adult Z68.43 [place] [id number] [place] [address] 17 Sep, [address] [facility] IN [facility] [id number] [place] [address] September, Wrist pain, left M25.532 and Acute pain of left knee M25.562 [place] [id number] [place] [address] Jul, Dysuria R30.0 [place] [id number] [place] [address] 30 Jul, 2016 Dysuria R30.0 [place] [id number] [place] [address] Jul, Left lower quadrant pain R10.32 [place] [id number] [place] [address] 14 Jul, 2016 [place] [id number] [place] [address] 09 Jul, 2016 Coronary artery disease I25.10 ; Family history of diabetes mellitus Z83.3 ; Morbid obesity with BMI of 50.0-59.9, adult Z68.43 ; Metabolic syndrome E88.81 ; Personal history of pulmonary embolism Z86.711 ; Gastroesophageal reflux disease without esophagitis K21.9 ; Hypothyroidism, unspecified E03.9 ; Hyperlipidemia, unspecified hyperlipidemia type E78.5 and Left lower quadrant pain R10.32 [facility] [place] [id number] [place] [address] Jul, [facility] [place] [id number] [place] [address] Jul, Morbid obesity with BMI of 50.0-59.9, adult Z68.43 [facility] IN [place] [id number] [place] [address] Jul, Generalized abdominal pain R10.84 [facility] [place] [id number] [place] [address] Jun, Muscle strain of right upper back, initial encounter S29.012A [facility] [address] [address] May, Foreign body (FB) in soft tissue M79.5 [place] [id number] [place] [address] Mar, Hypothyroidism, unspecified E03.9 and Arthritis M19.[address] [address] Feb, Coronary artery disease I25.10 ; Morbid obesity with BMI of 50.0- 59.9, adult Z68.43 ; Metabolic syndrome E88.81 ; Gastroesophageal reflux disease without esophagitis K21.9 ; Hypothyroidism, unspecified E03.9 ; Personal history of pulmonary embolism Z86.711 and Hyperlipidemia, unspecified hyperlipidemia type E78.5 [place] [id number] [place] [address] Feb, [facility] [place] [id number] [place] [address] Jan, Acute right-sided thoracic back pain M54.6 [place] [id number] [place] [address] Jan, Acute pain of left knee M25.562 [place] [id number] [place] [address] Dec, Dysuria R30.0 ; Metabolic syndrome E88.81 ; Acute pain of left knee M25.562 ; Acute cystitis with hematuria N30.01 and Acute left eye pain H57.12 [place] [id number] [place] [address] Dec, [place] [address] [address] Dec, [place] [address] [address] Dec, Hypothyroidism, unspecified E03.9 [place] [address] [address] Dec, [place] [address] [address] Nov, Peripheral edema R60.9 and Acute pain of left knee M25.[address] [facility] IN [place] [id number] [place] [address] September, [place] [address] [address] September, Metabolic syndrome E88.81 and Allergy, subsequent encounter T78.40XD [facility] IN [place] [id number] [place] [address] September, Muscle strain T14.8 [place] [id number] [place] [address] Aug, Chest pressure R07.89 ; Metabolic syndrome E88.81 ; Morbid obesity with BMI of 50.0-59.9, adult Z68.43 ; Esophageal reflux 530.81 and Shortness of breath R06.02 [place] [id number] [place] [address] Aug, [place] [address] [address] Aug, [facility] [id number] [place] [address] Aug, Hypothyroidism, unspecified E03.9 [place] [id number] [place] [address] Aug, Routine health maintenance Z00.[address] [facility] WALK IN [facility] [id number] [place] [address] Aug, [facility] [id number] [place] [address] Jul, Routine health maintenance Z00.00 ; Family history of diabetes mellitus Z83.3 ; Family history of cancer Z80.9 and Morbid obesity with BMI of 50.0- 59.9, adult Z68.[address] [facility]ALK IN [place] [id number] [place] [address] Jul, Allergic rhinitis J30.9 and Postnasal drip R09.82 [place] [id number] [place] [address] Jul, Influenza J11.1 [facility] [place] [id number] [place] [address] 08 Jul, 2015 Dysuria R30.0 [place] [address] [place] [id number] [place] [address] Apr, [place] [address] [place] [id number] [place] [address] Mar, Acute upper respiratory infection, unspecified J06.9 and Hypothyroidism E03.9 [place] [address] [place] [id number] [place] [address] Mar, [place] [address] [place] [id number] [place] [address] Feb, Coronary artery disease I25.10 [place] [address] [address] Feb, Left foot pain M79.672 [place] [address] [place] [address] Jan, UTI (urinary tract infection) 599.0 [place] [address] [place] [address] Jan, Urinary tract infection, site not specified 599.0 [place] [address] [place] [address] Jan, Urinary tract infection, site not specified 599.0 [place] [address] [place] [id number] [place] [address] Jan, [place] [address] [place] [id number] [place] [address] Dec, Headache 784.0 [place] [address] [place] [id number] [place] [address] Dec, Urinary tract infection, site not specified 599.0 [place] [address] [place] [id number] [place] [address] Dec, Urinary tract infection, site not specified 599.0 [place] [address] [place] [address] Dec, Urinary tract infection, site not specified 599.0 [place] [address] [place] [address] Nov, Unspecified sleep apnea 780.57 ; Encounter for long-term (current) use of anticoagulants V58.61 ; Routine general medical examination at health care facility V70.0 and Arthritis of both knees 716.96 [place] [address] [place] [address] September, Cat bite of hand 882.0 and Rectal bleeding 569.3 [place] [address] [place] [id number] [place] [address] 14 Aug, 2014 [facility] [place] [facility] [address] [id number] [place] [address] Aug, [facility] [place] [facility] [address] [id number] [place] [address] Jul, [facility] [place] [facility] [address] [id number] [place] [address] Jul, [facility] [place] [facility] [address] [id number] [place] [address] Jul, [facility] [place] [facility] [address] [id number] [place] [address] Jul, [facility] [place] [facility] [address] [id number] [place] [address] Jul, [facility] [place] [facility] [address] [id number] [place] [address] Jul, [facility] [place] [facility] [address] [id number] [place] [address] Jul, [facility] [place] [facility] [address] [id number] [place] [address] Jul, [facility] [place] [facility] [address] [id number] [place] [address] May, [facility] [place] [facility] [address] [id number] [place] [address] May, [facility] [place] [facility] [address] [id number] [place] [address] May, [facility] [place] [facility] [address] [id number] [place] [address] May, [facility] [place] [facility] [address] [id number] [place] [address] May, [facility] [place] [facility] [address] [id number] [place] [address] May, [facility] [place] [facility] [address] [id number] [place] [address] 15 May, 2014 [facility] [place] [facility] [address] [id number] [place] [address] Mar, [facility] [place] [facility] [address] [id number] [place] [address] Mar, [facility] [place] [facility] [address] [id number] [place] [address] 08 Jan, 2013 [facility] [place] [facility] [address] [id number] [place] [address] 08 Jan, 2013 [facility] [place] [facility] [address] [id number] [place] [address] 08 Jan, 2013 [facility] [place] [facility] [address] [id number] [place] [address] Jan, 2013 [facility] [place] [facility] [address] [id number] [place] [address] Jan, 2013 [facility] [place] [facility] [address] [id number] [place] [address] Jan, [facility] [place] [facility] [address] [id number] [place] [address] Dec, [facility] [place] [facility] [address] [id number] [place] [address] Dec, [facility] [place] [facility] [address] [id number] [place] [address] Dec, [facility] [place] [facility] [address] [id number] [place] [address] Dec, [facility] [place] [facility] [address] [id number] [place] [address] Dec, [facility] [place] [facility] [address] [id number] [place] [address] Dec, [facility] [place] [facility] [address] [id number] [place] [address] Dec, [facility] [place] [facility] [address] [id number] [place] [address] Dec, [facility] [place] [facility] [address] [id number] [place] [address] Dec, [facility] [place] [facility] [address] [id number] [place] [address] Dec, [facility] [place] [facility] [address] [id number] [place] [address] Nov, [facility] [place] [facility] [address] [id number] [place] [address] Nov, [facility] [place] [facility] [address] [id number] [place] [address] September, [facility] [place] [facility] [address] [id number] [place] [address] September, [facility] [place] [facility] [address] [id number] [place] [address] September, [facility] [place] [facility] [address] [id number] [place] [address] September, [facility] [place] [facility] [address] [id number] [place] [address] Aug, [facility] [place] [facility] [address] [id number] [place] [address] Aug, [facility] [place] [facility] [address] [id number] [place] [address] Aug, [facility] [place] [facility] [address] [id number] [place] [address] Aug, [facility] [place] [facility] [address] [id number] [place] [address] Aug, [facility] [place] [facility] [address] [id number] [place] [address] Aug, [facility] [place] [facility] [address] [id number] [place] [address] 08 Aug, 2013 [facility] [place] [facility] [address] [id number] [place] [address] 08 Aug, 2013 [facility] [place] [facility] [address] [id number] [place] [address] Aug, [facility] [place] [facility] [address] [id number] [place] [address] Aug, [facility] [place] [facility] [address] [id number] [place] [address] Aug, [facility] [place] [facility] [address] [id number] [place] [address] Aug, [facility] [place] [facility] [address] [id number] [place] [address] Jul, [facility] [place] [facility] [address] [id number] [place] [address] Jul, [facility] [place] [facility] [address] [id number] [place] [address] Jul, [facility] [place] [facility] [address] [id number] [place] [address] Jul, [facility] [place] [facility] [address] [id number] [place] [address] Jul, [facility] [place] [facility] [address] [id number] [place] [address] Jul, [facility] [place] [facility] [address] [id number] [place] [address] 05 Jul, 2013 [facility] [place] [facility] [address] [id number] [place] [address] 05 Jul, 2013 [facility] [place] [facility] [address] [id number] [place] [address] Jul, [facility] [place] [facility] [address] [id number] [place] [address] Jul, [facility] [facility] [address] [id number] [place] [address] Jun, [facility] [place] [facility] [address] [id number] [place] [address] Jun, [facility] [place] [facility] [address] [id number] [place] [address] Jun, [facility] [place] [facility] [address] [id number] [place] [address] Jun, [facility] [place] [facility] [address] [id number] [place] [address] Jun, [facility] [place] [facility] [address] [id number] [place] [address] Jun, [facility] [place] [facility] [address] [id number] [place] [address] Jun, [facility] [place] [facility] [address] [id number] [place] [address] Jun, [facility] [place] [facility] [address] [id number] [place] [address] Jun, [facility] [place] [facility] [address] [id number] [place] [address] Jun, [facility] [place] [facility] [address] [id number] [place] [address] Jun, [facility] [place] [facility] [address] [id number] [place] [address] Jun, [facility] [place] [facility] [address] [id number] [place] [address] May, [facility] [place] [facility] [address] [id number] [place] [address] May, [facility] [place] [facility] [address] [id number] [place] [address] May, [facility] [place] [facility] [address] [id number] [place] [address] May, [facility] [address] [id number] [place] [address] May, [facility] [address] [id number] [place] [address] May, [facility] [address] [id number] [place] [address] May, [facility] [address] [id number] [place] [address] May, [facility] [address] [id number] [place] [address] May, [facility] [address] [id number] [place] [address] May, [facility] [address] [id number] [place] [address] May, [facility] [address] [id number] [place] [address] May, [facility] [address] [id number] [place] [address] May, [facility] [address] [id number] [place] [address] May, [facility] [address] [id number] [place] [address] May, [facility] [address] [id number] [place] [address] Apr, [facility] [address] [id number] [place] [address] Apr, [facility] [address] [id number] [place] [address] Apr, [facility] [address] [id number] [place] [address] Apr, [facility] [place] [facility] [address] [id number] [place] [address] Mar, [facility] [place] [facility] [address] [id number] [place] [address] Mar, [facility] [place] [facility] [address] [id number] [place] [address] Mar, [facility] [place] [facility] [address] [id number] [place] [address] Mar, [facility] [place] [facility] [address] [id number] [place] [address] Mar, [facility] [place] [facility] [address] [id number] [place] [address] Mar, [facility] [place] [facility] [address] [id number] [place] [address] Mar, [facility] [place] [facility] [address] [id number] [place] [address] Mar, [facility] [facility] [address] [id number] [place] [address] Mar, [facility] [address] [id number] [address] Mar, [facility] [address] [id number], [place] [address] Mar, [facility] [address] [id number], [place] [address] Mar, [facility] [address] [id number], [place] [address] Feb, [facility] [address] [id number] [address] 18 Jan, 2013 [facility] [address] [id number], [place] [address] 17 Jan, 2013 [facility] [address] [id number][place] [address] 06 Jan, 2013 [facility] [address] [id number] [place] [address] 04 Jan, 2013 [facility] [address] [id number] [place] [address] Jan, [facility] [facility] [address] [id number] [place] [address] Dec, [facility] [address] [id number] [place] [address] Dec, [facility] [address] [id number] [place] [address] Dec, [facility] [address] [id number] [place] [address] Dec, [facility] [address] [id number] [place] [address] Dec, [facility] [address] [id number] [place] [address] Dec, [facility] [address] [id number] [place] [address] Dec, [facility] [address] [id number] [place] [address] Dec, [facility] [address] [id number] [place] [address] Nov, [facility] [address] [id number] [place] [address] Nov, [facility] [address] [id number] [place] [address] Nov, [facility] [address] [id number] [place] [address] Nov, [facility] [address] [id number] [place] [address] Nov, [facility] [address] [id number], [place] [address] Nov, [facility] [address] [id number], [place] [address] Oct, [facility] [address] [id number] [place] [id number] Oct, [facility] [address] [id number] [place] [id number] Oct, [facility] [address] [id number] [place] [id number] Oct, [facility] [address] [id number] [place] [id number] Oct, [facility] [address] [id number], [place] [address] Oct, [facility] [address] [facility] [id number], [place] [address] Oct, [facility] [address] [facility] [id number], [place] [address] Oct, [facility] [address] [facility] [id number], [place] [address] Oct, [facility] [address] [facility] [id number], [place] [address] Oct, [facility] [address] [facility] [id number], [place] [address] Oct, [facility] [address] [id number], [place] [address] September, [facility] [address] [facility] [id number][place] [address] Aug, [facility] [address] [id number], [place] [address] Aug, [facility] [address] [facility] [id number], [place] [address] Aug, [facility] [address] [id number] [place] [address] Aug, [facility] [address] [id number] [place] [address] 24 Jul, 2012 [facility] [address] [id number] [place] [address] Jul, [facility] [address] [id number] [place] [address] Jul, [facility] [address] [id number] [place] [address] 05 Jul, 2012 [facility] [address] [id number] [place] [address] Jul, [facility] [address] [id number] [place] [address] 19 Jun, 2012 [facility] [address] [id number] [place] [address] Jun, [facility] [address] [id number] [place] [address] Jun, [facility] [address] [id number] [place] [address] May, [facility] [address] [id number] [place] [address] 24 May, 2012 [facility] [address] [id number] [place] [address] May, [facility] [address] [id number] [place] [address] May, [facility] [address] [id number] [place] [address] 07 May, 2012 [facility] [address] [id number] [place] [address] 04 May, 2012 [facility] [address] [id number] [place] [address] 18 Apr, 2012 [facility] [address] [id number] [place] [address] 18 Apr, 2012 [facility] [address] [id number] [place] [address] 13 Apr, 2012 [facility] [address] [id number] [place] [address] Apr, [facility] [address] [id number] [place] [address] Apr, [facility] [address] [id number] [place] [address] Apr, [facility] [address] [id number] [place] [address] Apr, [facility] [address] [id number] [place] [address] Mar, [facility] [address] [id number] [place] [address] Mar, [facility] [address] [id number] [place] [address] Mar, [facility] [address] [id number] [place] [address] Mar, [facility] [address] [id number] [place] [address] 18 Jan, 2012 [facility] [address] [id number], [place] [address] Jan, [facility] [address] [id number] [place] [address] Jan, [facility] [facility] [address] [id number] [place] [address] Jan, [facility] [address] [id number][place] [id number] Dec, [facility] [address] [id number] [place] [address] Dec, [facility] [address] [facility] [id number] [place] [id number] Dec, [facility] [address] [facility] [id number], [place] [address] Dec, [facility] [address] [facility] [id number], [place] [address] Dec, [facility] [address] [facility] [id number], [place] [address] Dec, [facility] [address] [facility] [id number], [place] [address] Nov, [facility] [address] [facility] [id number], [place] [address] Nov, [facility] [address] [facility] [id number], [place] [address] Nov, IMMUNIZATIONS No Known Immunizations SOCIAL HISTORY Never Assessed REASON FOR VISIT [facility] PLAN OF CARE VITAL SIGNS MEDICATIONS No [...] asthma(493.90) Medical History Near syncope 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
--- OUTSIDE RECORDS SUMMARY | 2018-11-13 20:18 | XMS REPORT ---
Author Author Migration, Doctor Organization [facility] Address Unknown Phone Unavailable Care Team Providers Care Student Liaison Officer Name Role Phone Migration, Doctor Unavailable Unavailable PROBLEMS Type Condition ICD9-CM Code AWE35-OO Code Onset Dates Condition Status SNOMED Code Problem Unspecified hypothyroidism E03.9 0 37030646 Problem Esophageal reflux K21.9 0 642492120 Problem Shortness of breath R06.02 Apr, 0 268669005 Problem Dyslipidemia E78.5 Oct, 0 573418539 Problem Pulmonary embolus I26.99 Oct, 0 35660961 Problem Osteoarthritis of right knee M17.11 13 May, 2009 0 899430637 Problem Unspecified sleep apnea G47.30 0 79557711 Problem Hyperlipidemia LDL goal <70 E78.5 Active 97598672 Problem Nonintractable migraine G43.009 08 Oct, 2015 0 925313507 Problem Migraine with aura and without status migrainosus, not intractable G43.109 Active 5312227 Problem Generalized anxiety disorder F41.1 Apr, 0 34425712 Problem Morbid obesity with BMI of 50.0-59.9, adult Z68.43 Active 213225694 Problem Hypothyroidism E03.9 Active 38148259 Problem Renal stones N20.0 Active 22321618 Problem Coronary artery disease I25.10 Active 75369517 ALLERGIES No Information ENCOUNTERS Encounter Location Date Diagnosis [facility] [address] [address] Aug, [facility] [id number], [place] [address] Jul, Right foot pain M79.671 and Morbid obesity E66.01 [facility] [address], [place] [address] Jul, Injury of right foot, initial encounter S99.921A and Morbid obesity E66.01 [facility] [id number], [place] [address] Jul, Recurrent syncope R55 and Morbid obesity E66.01 [facility] [id number] [place] [address] Jul, [facility] [id number] [place] [address] Jun, Hematuria, unspecified type R31.9 and BMI 50.0-59.9, adult Z68.43 [place] [id number] [place] [address] Jun, [address] [address] Jun, 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 [facility] [place] [id number] [place] [address] May, Ankle pain, right M25.571 and BMI 50.0-59.9, adult Z68.43 [place] [id number] [place] [address] May, [place] [id number] [place] [address] May, [place] [id number] [place] [address] Apr, [place] [id number] [place] [address] Apr, [facility] [id number] [place] [address] Apr, [facility] [id number] [place] [address] Apr, BMI 50.0-59.9, adult Z68.43 and Weakness R53.1 [facility] [id number], [place] [address] Apr, [facility] [place] [id number] [place] [address] Apr, Dysuria R30.0 ; Hematuria R31.9 ; Renal lithiasis N20.0 and BMI 50.0- 59.9, adult Z68.43 [place] [id number] [place] [address] Apr, [place] [address] [address] Apr, [place] [address] [address] Apr, Hypothyroidism E03.9 [place] [address] [address] Apr, Burning with urination R30.0 ; Type 2 diabetes mellitus with diabetic neuropathic arthropathy, 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 ; Acute bilateral low back pain without sciatica M54.5 and BMI 50.0-59.9, adult Z68.43 [place] [address] [address] Mar, Hypothyroidism E03.9 [place] [address] [address] Feb, [facility] [place] [id number] [place] [address] Jan, [place] [address] [address] 07 Jan, 2018 Acute non-recurrent maxillary sinusitis J01.00 and BMI 50.0-59.9, adult Z68.43 [facility] [place] [address] [address] 04 Jan, 2018 Congestion of upper respiratory tract J98.8 and BMI 50.0-59.9, adult Z68.43 [place] [address] [address] Dec, Type 2 diabetes mellitus with diabetic neuropathic arthropathy, 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 [id number] [place] [address] Dec, Migraine with aura and without status migrainosus, not intractable G43.109 ; Dehydration symptoms R63.8 and BMI 50.0-59.9, adult Z68.43 [facility] [address] [address] Oct, [facility] [id number] [place] [address] Oct, [facility] [address] [address] Oct, [facility] [id number] [place] [address] September, [facility] [id number] [place] [address] September, Type 2 diabetes mellitus with diabetic neuropathic arthropathy, 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 ; Hyperlipidemia, unspecified hyperlipidemia type E78.5 ; Personal history of pulmonary embolism Z86.711 ; Coronary artery disease I25.10 and Hypothyroidism E03.9 [facility] [id number] [place] [address] September, [facility] [address] [address] Aug, Type 2 diabetes mellitus with diabetic [...] without aura and with status migrainosus G43.011 [place] [id number] [place] [address] Aug, [place] [address] [address] Aug, [place] [address] [address] Jul, Renal stones N20.[address] [facility] [address] [address] Jun, Back pain M54.9 ; Kidney stones N20.0 and BMI 50.0-59.9, adult Z68.43 [place] [address] [address] Jun, [place] [address] [address] Apr, [place] [address] [address] Apr, [place] [id number] [place] [address] Apr, Right foot pain M79.671 ; Acute gout involving toe of right foot, 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 and Arthritis M19.90 [place] [id number] [place] [address] 06 Apr, 2017 Gastroesophageal reflux disease without esophagitis K21.9 [place] [address] [address] 16 Mar, 2017 Hypothyroidism, unspecified E03.9 [place] [id number] [place] [address] Feb, [place] [address] [place] [id number] [place] [address] 25 Jan, 2017 Cervicalgia of xsxuefrw-jopfffy-pdwvz region M54.2 and Persistent headaches R51 [place] [id number] [place] [address] 20 Jan, 2017 [place] [id number] [place] [address] 12 Jan, 2017 Intractable migraine without aura and with status migrainosus G43.011 ; Cervical spine pain M54.2 ; Hyperlipidemia, unspecified hyperlipidemia type E78.5 ; Hypothyroidism E03.9 and Metabolic syndrome E88.81 [place] [address] [address] Jan, Hypothyroidism, unspecified E03.9 [place] [id number] [place] [address] Dec, Hypothyroidism, unspecified E03.9 [place] [address] [address] Dec, Hypothyroidism E03.9 [place] [address] [address] Nov, Laceration of left great toe w/o foreign body w/o damage to nail, initial encounter S91.112A [facility] [id number] [place] [address] Oct, Pain in left knee M25.562 and Arthritis M19.90 [place] [id number] [place] [address] Oct, Hypothyroidism, unspecified E03.9 and Hyperlipidemia, unspecified hyperlipidemia type E78.5 [place] [id number] [place] [address] Oct, Gastroesophageal reflux disease without esophagitis K21.9 [place] [address] [address] 14 Oct, 2016 Metabolic syndrome E88.81 ; Personal history of pulmonary embolism Z86.711 ; Other specified hypothyroidism E03.8 and Hyperlipidemia, unspecified hyperlipidemia type E78.5 [place] [id number] [place] [address] 13 Oct, 2016 Personal history of pulmonary embolism Z86.711 ; Dysuria R30.0 ; Metabolic syndrome E88.81 ; Other specified hypothyroidism E03.8 ; Hyperlipidemia, unspecified hyperlipidemia type E78.5 and Morbid obesity with BMI of 50.0-59.9, adult Z68.43 [place] [id number] [place] [address] September, [facility] [place] [id number] [place] [address] September, Wrist pain, left M25.532 and Acute pain of left knee M25.562 [place] [id number] [place] [address] Jul, Dysuria R30.0 [place] [id number] [place] [address] Jul, Dysuria R30.0 [place] [id number] [place] [address] Jul, Left lower quadrant pain R10.32 [place] [id number] [place] [address] 14 Jul, 2016 [place] [id number] [place] [address] 09 Jul, 2016 Coronary artery disease I25.10 ; Family history of diabetes mellitus Z83.3 ; Morbid obesity with BMI of 50.0-59.9, adult Z68.43 ; Metabolic syndrome E88.81 ; Personal history of pulmonary embolism Z86.711 ; Gastroesophageal reflux disease without esophagitis K21.9 ; Hypothyroidism, unspecified E03.9 ; Hyperlipidemia, unspecified hyperlipidemia type E78.5 and Left lower quadrant pain R10.32 [facility] [place] [id number] [place] [address] 09 Jul, 2016 [facility] [place] [id number] [place] [address] Jul, Morbid obesity with BMI of 50.0-59.9, adult Z68.43 [facility] [place] [id number] [place] [address] Jul, Generalized abdominal pain R10.84 [facility] [place] [id number] [place] [address] 02 Jun, 2016 Muscle strain of right upper back, initial encounter S29.012A [facility] [address] [address] May, Foreign body (FB) in soft tissue M79.[address] [address] Mar, Hypothyroidism, unspecified E03.9 and Arthritis M19.90 [place] [id number] [place] [address] 13 Feb, 2016 Coronary artery disease I25.10 ; Morbid obesity with BMI of 50.0- 59.9, adult Z68.43 ; Metabolic syndrome E88.81 ; Gastroesophageal reflux disease without esophagitis K21.9 ; Hypothyroidism, unspecified E03.9 ; Personal history of pulmonary embolism Z86.711 and Hyperlipidemia, unspecified hyperlipidemia type E78.5 [place] [id number] [place] [address] 10 Feb, 2016 [facility] [place] [id number] [place] [address] 12 Jan, 2016 Acute right-sided thoracic back pain M54.6 [place] [id number] [place] [address] 01 Jan, 2016 Acute pain of left knee M25.562 [place] [address] [address] Dec, Dysuria R30.0 ; Metabolic syndrome E88.81 ; Acute pain of left knee M25.562 ; Acute cystitis with hematuria N30.01 and Acute left eye pain H57.12 [place] [id number] [place] [address] Dec, [place] [id number] [place] [address] Dec, [place] [id number] [place] [address] Dec, Hypothyroidism, unspecified E03.9 [place] [address] [address] Dec, [place] [id number] [place] [address] Nov, Peripheral edema R60.9 and Acute pain of left knee M25.562 [facility] [id number] [place] [address] September, [place] [address] [address] September, Metabolic syndrome E88.81 and Allergy, subsequent encounter T78.40XD [facility] [place] [id number] [place] [address] September, Muscle strain T14.8 [place] [id number] [place] [address] Aug, Chest pressure R07.89 ; Metabolic syndrome E88.81 ; Morbid obesity with BMI of 50.0-59.9, adult Z68.43 ; Esophageal reflux 530.81 and Shortness of breath R06.02 [place] [id number] [place] [address] Aug, [place] [address] [address] Aug, [place] [id number] [place] [address] Aug, Hypothyroidism, unspecified E03.9 [place] [address] [address] Aug, Routine health maintenance Z00.00 [facility] [place] [address] [address] Aug, [place] [address] [address] Jul, Routine health maintenance Z00.00 ; Family history of diabetes mellitus Z83.3 ; Family history of cancer Z80.9 and Morbid obesity with BMI of 50.0- 59.9, adult Z68.43 [facility] [place] [address] [address] Jul, Allergic rhinitis J30.9 and Postnasal drip R09.82 [place] [address] [address] 18 Jul, 2015 Influenza J11.[address] [facility] [address] [address] 08 Jul, 2015 Dysuria R30.0 [place] [address] [address] Apr, [place] [address] [address] Mar, Acute upper respiratory infection, unspecified J06.9 and Hypothyroidism E03.9 [place] [address] [address] Mar, [place] [address] [address] Feb, Coronary artery disease I25.10 [place] [address] [address] Feb, Left foot pain M79.672 [facility] [id number], [place] [address] Jan, UTI (urinary tract infection) 599.0 [facility] [address], [place] [address] Jan, Urinary tract infection, site not specified 599.0 [facility] [address], [place] [address] Jan, Urinary tract infection, site not specified 599.0 [facility] [id number], [place] [address] Jan, [facility] [id number] [place] [address] Dec, Headache 784.0 [facility] [address], [place] [address] Dec, Urinary tract infection, site not specified 599.0 [facility] [address], [place] [address] Dec, Urinary tract infection, site not specified 599.0 [facility] [address] [place] [address] Dec, Urinary tract infection, site not specified 599.0 [facility] [id number] [address] Nov, Unspecified sleep apnea 780.57 ; Encounter for long-term (current) use of anticoagulants V58.61 ; Routine general medical examination at health care facility V70.0 and Arthritis of both knees 716.96 [facility] [address], [place] [address] September, Cat bite of hand 882.0 and Rectal bleeding 569.3 [facility] [address] [id number] [address] Aug, [facility] [id number] [place] [address] Aug, [facility] [place] [facility] [address] [id number] [place] [address] Jul, [facility] [place] [facility] [address] [id number] [place] [address] Jul, [facility] [place] [facility] [address] [id number] [place] [address] Jul, [facility] [place] [facility] [address] [id number] [place] [address] Jul, [facility] [place] [facility] [address] [id number] [place] [address] Jul, [facility] [place] [facility] [address] [id number] [place] [address] Jul, [facility] [place] [facility] [address] [id number] [place] [address] Jul, [facility] [place] [facility] [address] [id number] [place] [address] Jul, [facility] [place] [facility] [address] [id number] [place] [address] May, [facility] [place] [facility] [address] [id number] [place] [address] May, [facility] [place] [facility] [address] [id number] [place] [address] May, [facility] [place] [facility] [address] [id number] [place] [address] May, [facility] [place] [facility] [address] [id number] [place] [address] May, [facility] [place] [facility] [address] [id number] [place] [address] May, [facility] [place] [facility] [address] [id number] [place] [address] May, [facility] [place] [facility] [address] [id number] [place] [address] Mar, [facility] [place] [facility] [address] [id number] [place] [address] Mar, [facility] [place] [facility] [address] [id number] [place] [address] 08 Jan, 2013 [facility] [place] [facility] [address] [id number] [place] [address] Jan, 2013 [facility] [place] [facility] [address] [id number] [place] [address] Jan, 2013 [facility] [place] [facility] [address] [id number] [place] [address] Jan, 2013 [facility] [place] [facility] [address] [id number] [place] [address] Jan, 2013 [facility] [place] [facility] [address] [id number] [place] [address] Jan, 2013 [facility] [place] [facility] [address] [id number] [place] [address] Dec, [facility] [place] [facility] [address] [id number] [place] [address] Dec, [facility] [place] [facility] [address] [id number] [place] [address] Dec, [facility] [place] [facility] [address] [id number] [place] [address] Dec, [facility] [place] [facility] [address] [id number] [place] [address] Dec, [facility] [place] [facility] [address] [id number] [place] [address] Dec, [facility] [place] [facility] [address] [id number] [place] [address] Dec, [facility] [place] [facility] [address] [id number] [place] [address] Dec, [facility] [place] [facility] [address] [id number] [place] [address] Dec, [facility] [place] [facility] [address] [id number] [place] [address] Dec, [facility] [place] [facility] [address] [id number] [place] [address] Nov, [facility] [place] [facility] [address] [id number] [place] [address] Nov, [facility] [place] [facility] [address] [id number] [place] [address] September, [facility] [place] [facility] [address] [id number] [place] [address] September, [facility] [place] [facility] [address] [id number] [place] [address] September, [facility] [place] [facility] [address] [id number] [place] [address] September, [facility] [place] [facility] [address] [id number] [place] [address] Aug, [facility] [place] [facility] [address] [id number] [place] [address] Aug, [facility] [place] [facility] [address] [id number] [place] [address] Aug, [facility] [place] [facility] [address] [id number] [place] [address] Aug, [facility] [place] [facility] [address] [id number] [place] [address] Aug, [facility] [place] [facility] [address] [id number] [place] [address] Aug, [facility] [place] [facility] [address] [id number] [place] [address] Aug, [facility] [place] [facility] [address] [id number] [place] [address] 08 Aug, 2013 [facility] [place] [facility] [address] [id number] [place] [address] 07 Aug, 2013 [facility] [place] [facility] [address] [id number] [place] [address] Aug, [facility] [place] [facility] [address] [id number] [place] [address] Aug, [facility] [place] [facility] [address] [id number] [place] [address] Aug, [facility] [place] [facility] [address] [id number] [place] [address] Jul, [facility] [place] [facility] [address] [id number] [place] [address] Jul, [facility] [place] [facility] [address] [id number] [place] [address] Jul, [facility] [place] [facility] [address] [id number] [place] [address] Jul, [facility] [place] [facility] [address] [id number] [place] [address] Jul, [facility] [place] [facility] [address] [id number] [place] [address] Jul, [facility] [place] [facility] [address] [id number] [place] [address] Jul, [facility] [place] [facility] [address] [id number] [place] [address] Jul, [facility] [place] [facility] [address] [id number] [place] [address] Jul, [facility] [place] [facility] [address] [id number] [place] [address] Jul, [facility] [place] [facility] [address] [id number] [place] [address] Jun, [facility] [place] [facility] [address] [id number] [place] [address] Jun, [facility] [place] [facility] [address] [id number] [place] [address] Jun, [facility] [place] [facility] [address] [id number] [place] [address] Jun, [facility] [place] [facility] [address] [id number] [place] [address] Jun, [facility] [place] [facility] [address] [id number] [place] [address] Jun, [facility] [place] [facility] [address] [id number] [place] [address] Jun, [facility] [place] [facility] [address] [id number] [place] [address] Jun, [facility] [place] [facility] [address] [id number] [place] [address] Jun, [facility] [place] [facility] [address] [id number] [place] [address] Jun, [facility] [place] [facility] [address] [id number] [place] [address] Jun, [facility] [place] [facility] [address] [id number] [place] [address] Jun, [facility] [place] [facility] [address] [id number] [place] [address] May, [facility] [place] [facility] [address] [id number] [place] [address] May, [facility] [place] [facility] [address] [id number] [place] [address] May, [facility] [place] [facility] [address] [facility] [id number] [place] [address] May, [facility] [place] [facility] [address] [id number] [place] [address] May, [facility] [place] [facility] [address] [id number] [place] [address] May, [facility] [place] [facility] [address] [id number] [place] [address] May, [facility] [place] [facility] [address] [id number] [place] [address] May, [facility] [place] [facility] [address] [id number] [place] [address] May, [facility] [place] [facility] [address] [id number] [place] [address] May, [facility] [place] [facility] [address] [id number] [place] [address] May, [facility] [place] [facility] [address] [id number] [place] [address] May, [facility] [place] [facility] [address] [id number] [place] [address] May, [facility] [place] [facility] [address] [id number] [place] [address] May, [facility] [place] [facility] [address] [id number] [place] [address] May, [facility] [place] [facility] [address] [id number] [place] [address] Apr, [facility] [place] [facility] [address] [id number] [place] [address] Apr, [facility] [place] [facility] [address] [id number] [place] [address] Apr, [facility] [place] [facility] [address] [id number] [place] [address] Apr, [facility] [place] [facility] [address] [id number] [place] [address] Mar, [facility] [place] [facility] [address] [id number] [place] [address] Mar, [facility] [place] [facility] [address] [id number] [place] [address] Mar, [facility] [place] [facility] [address] [id number] [place] [address] Mar, [facility] [place] [facility] [address] [id number] [place] [address] Mar, [facility] [place] [facility] [address] [id number] [place] [address] Mar, [facility] [place] [facility] [address] [id number] [place] [address] Mar, [facility] [place] [facility] [address] [id number] [place] [address] Mar, [facility] [place] [facility] [address] [id number], [place] [address] Mar, [facility] [place] [facility] [address] [id number] [place] [address] Mar, [facility] [place] [facility] [address] [id number], [place] [address] Mar, [facility] [place] [facility] [address] [id number], [place] [address] Mar, [facility] [place] [facility] [address] [id number], [place] [address] 03 Feb, 2013 [facility] [place] [facility] [address] [id number], [place] [address] 18 Sep2012 [facility] [place] [facility] [address] [id number], [place] [address] 17 Sep2012 [facility] [place] [facility] [address] [id number], [place] [address] 06 Jan, 2013 [facility] [place] [facility] [address] [id number] [place] [address] 04 Jan, 2013 [facility] [place] [facility] [address] [id number] [place] [address] Jan, [facility] [place] [facility] [address] [id number] [place] [address] Dec, [facility] [place] [facility] [address] [id number] [place] [address] Dec, [facility] [place] [facility] [address] [id number] [place] [address] Dec, [facility] [place] [facility] [address] [id number] [place] [address] Dec, [facility] [place] [facility] [address] [id number] [place] [address] Dec, [facility] [place] [facility] [address] [id number] [place] [address] Dec, [facility] [place] [facility] [address] [id number] [place] [address] Dec, [facility] [place] [facility] [address] [id number] [place] [address] Dec, [facility] [place] [facility] [address] [id number] [place] [address] Nov, [facility] [place] [facility] [address] [id number] [place] [address] Nov, [facility] [place] [facility] [address] [id number] [place] [address] Nov, [facility] [place] [facility] [address] [id number] [place] [address] Nov, [facility] [place] [facility] [address] [id number] [place] [address] Nov, [facility] [place] [facility] [address] [id number] [place] [address] Nov, [facility] [place] [facility] [address] [id number] [place] [address] Oct, [facility] [address] [id number] [place] [id number] Oct, [facility] [address] [id number] [place] [id number] Oct, [facility] [address] [id number] [place] [id number] Oct, [facility] [address] [id number] [place] [id number] Oct, [facility] [place] [facility] [address] [id number] [place] [address] Oct, [facility] [place] [facility] [address] [id number] [place] [address] Oct, [facility] [place] [facility] [address] [id number], [place] [address] Oct, [facility] [place] [facility] [address] [id number] [place] [address] Oct, [facility] [place] [facility] [address] [id number] [place] [address] Oct, [facility] [place] [facility] [address] [id number] [place] [address] Oct, [facility] [place] [facility] [address] [id number], [place] [address] September, [facility] [place] [facility] [address] [id number], [place] [address] Aug, [facility] [place] [facility] [address] [id number] [place] [address] Aug, [facility] [place] [facility] [address] [id number] [place] [address] Aug, [facility] [place] [facility] [address] [id number] [place] [address] Aug, [facility] [place] [facility] [address] [id number] [place] [address] 24 Jul, 2012 [facility] [address] [id number] [place] [address] Jul, [facility] [place] [facility] [address] [id number] [place] [address] 20 Jul, 2012 [facility] [address] [id number] [place] [address] 05 Jul, 2012 [facility] [address] [id number] [place] [address] 04 Jul, 2012 [facility] [address] [id number] [place] [address] 19 Jun, 2012 [facility] [address] [id number] [place] [address] Jun, [facility] [address] [id number] [place] [address] Jun, [facility] [address] [id number] [place] [address] May, [facility] [address] [id number] [place] [address] 24 May, 2012 [facility] [address] [id number] [place] [address] May, [facility] [address] [id number] [place] [address] May, [facility] [address] [id number] [place] [address] May, [facility] [place] [facility] [address] [id number] [place] [address] May, [facility] [place] [facility] [address] [id number] [place] [address] Apr, [facility] [address] [id number] [place] [address] 18 Apr, 2012 [facility] [place] [facility] [address] [id number] [place] [address] Apr, [facility] [place] [facility] [address] [id number] [place] [address] Apr, [facility] [place] [facility] [address] [facility] [id number] [place] [address] Apr, [facility] [place] [facility] [address] [id number] [place] [address] Apr, [facility] [place] [facility] [address] [id number] [place] [address] Apr, [facility] [place] [facility] [address] [id number] [place] [address] Mar, [facility] [place] [facility] [address] [facility] [id number] [place] [address] Mar, [facility] [place] [facility] [address] [facility] [id number] [place] [address] Mar, [facility] [place] [facility] [address] [facility] [id number] [place] [address] Mar, [facility] [place] [facility] [address] [facility] [id number], [place] [address] 18 Jan, 2012 [facility] [place] [facility] [address] [id number], [place] [address] Jan, [facility] [place] [facility] [address] [id number], [place] [address] Jan, [facility] [place] [facility] [address] [facility] [id number], [place] [address] Jan, [facility] [address] [facility] [id number][place] [id number] Dec, [facility] [place] [facility] [address] [facility] [id number], [place] [address] Dec, [facility] [address] [id number] [id number] Dec, [facility] [address] [facility] [id number], [place] [address] Dec, [facility] [id number], [place] [address] Dec, [facility] [address] [id number], [place] [address] Dec, [facility] [id number], [place] [address] Nov, [facility] [address] [facility] [id number], [place] [address] Nov, [facility] [address] [id number], [place] [address] Nov, IMMUNIZATIONS No Known Immunizations SOCIAL HISTORY Never Assessed REASON FOR VISIT EMR-[facility] PLAN OF CARE VITAL SIGNS MEDICATIONS Unknown [...] and LCX Medical History Heart Cath 06/25/2018 Surgical History heart cath-mild LAD, moderate RCA [...] Stent placed 08/19/2017 Hospitalization History Syncope- [facility] 12/2017 Hospitalization History heart cath ( 06/23/18-06/25/2018) 06/23/2018
--- NOTE | 2018-11-13 20:19 | ED GU-Female ---
General Stated Complaint: UTI Source: patient Exam Limitations: no limitations History of Present Illness Date Seen by Provider: Nov 13, 2018 Time Seen by Provider: 20:18 Initial Comments To ER with reports of burning during urination and for a bit of time after urination. No fevers chills or vomiting. She was seen here on 11/05/18 for this, diagnosed with urinary tract infection given a prescription for Macrobid. Reports transient improvement then recurrence of symptoms. She had an unremarkable CT. Timing/Duration: constant Severity/Quality: moderate Location: vaginal Radiation: none Activities at Onset: none Prior Genitourinary Problems: none Allergies and Home Medications Allergies Coded Allergies: methylprednisolone (Verified Allergy, Mild, 11/05/18) Penicillins (Unverified Allergy, Unknown, 11/05/18) atorvastatin (Verified Allergy, Unknown, 11/05/18) isosorbide (Verified Allergy, Unknown, 11/05/18) ketorolac (Verified Allergy, Unknown, ITCHING, 11/05/18) promethazine (Unverified Allergy, Unknown, hallucinations, 11/05/18) venom-honey bee (Unverified Allergy, Unknown, 11/05/18) Uncoded Allergies: TAPE (Allergy, Unknown, 08/16/13) Home Medications Acetaminophen 500 Mg Tablet, 500 MG PO BID PRN for PAIN-MILD, (Reported) Albuterol Sulfate 18 Gm Hfa.aer.ad, 1 PUFF INH Q4H PRN for SHORTNESS OF BREATH, (Reported) Albuterol Sulfate 2.5 Mg/3 Ml Vial.neb, 2.5 MG NEB Q4H PRN for SHORTNESS OF BREATH, (Reported) Aspirin 81 Mg Tablet.dr, 81 MG PO DAILY Prescribed by: REAGAN MCNEILL on 08/20/17 0800 Clopidogrel Bisulfate 75 Mg Tablet, 75 MG PO DAILY Prescribed by: REAGAN MCNEILL on 08/20/17 0800 Hydrocodone Bit/Acetaminophen 1 Ea Tablet, 1 EACH PO Q6H PRN for CHEST PAIN Prescribed by: ALEJANDRA MARTIN on 10/05/18 184 Hydrocodone/Acetaminophen 1 Each Tablet, 1 TAB PO Q6H, (Reported) Levothyroxine Sodium 150 Mcg Tablet, 150 MCG PO HS, (Reported) Nitrofurantoin Monohyd/M-Cryst 100 Mg Capsule, 100 MG PO BID Prescribed by: NORIS DOHERTY on 11/05/182008 Nitroglycerin 0.4 Mg Tab.subl, 0.4 MG SL PRN 1 TAB SUBLINGUAL Q5MIN. RETURN TO THE ER IF YOUR CHEST PAIN CONTINUES OR IS UNRESPLVED. Prescribed by: SHALOM RAMÍREZ on 08/20/17 1350 Omeprazole 20 Mg Capsule.dr, 20 MG PO DAILY, (Reported) LAST FILLED #30 04-15-17 Ondansetron 8 Mg Tab.rapdis, 8 MG PO Q6H Prescribed by: NORIS DOHERTY on 11/05/182008 Warfarin Sodium 5 Mg Tablet, 5 MG PO DAILY, (Reported) Patient Home Medication List Home Medication List Reviewed: Yes Review of Systems Review of Systems Constitutional: see HPI EENTM: see HPI Respiratory: no symptoms reported Cardiovascular: no symptoms reported Genitourinary: no symptoms reported Musculoskeletal: no symptoms reported Skin: no symptoms reported Psychiatric/Neurological: No Symptoms Reported Past Ladgmem-Rcbsoi-Zmvtvu Hx Patient Social History 2nd Hand Smoke Exposure: No Recent Foreign Travel: No Contact w/Someone Who Travel: No Recent Hopitalizations: No Immunizations Up To Date Tetanus Booster (TDap): Less than 5yrs Date of Pneumonia Vaccine: Aug 17, 2012 Date of Influenza Vaccine: May 06, 2012 Seasonal Allergies Seasonal Allergies: No Past Medical History Surgeries: Yes ("neck" Coronary Stent x2) Appendectomy, Coronary Stent, Gallbladder, Hysterectomy Respiratory: Yes Asthma, Sleep Apnea Currently Using CPAP: No Currently Using BIPAP: No Cardiac: Yes ("heart Disease") Coronary Artery Disease, High Cholesterol Neurological: Yes (NEUROPATHY ARMS & FEET) Headaches /Migraines Reproductive Disorders: Yes (FIBROIDS, CHRONIC PELVIC PAIN ) [employer] History: Hysterectomy Sexually Transmitted Disease: No HIV/AIDS: No Genitourinary: No Kidney Stones Gastrointestinal: No Gastroesophageal Reflux Musculoskeletal: No Degenerate Disk Disease, Arthritis, Back Injury, Chronic Back Pain, Spasms Endocrine: No Hypothyroidsim HEENT: Yes (wears glasses for reading) Loss of Vision: Bilateral Hearing Impairment: Denies Cancer: No Colon Psychosocial: No Integumentary: No Blood Disorders: Yes (BLOOD CLOTS) Adverse Reaction/Blood Tranf: No Family Medical History Arthritis G8 SISTER Cardiovascular disease 03 FATHER Colon cancer 03 MOTHER Completed stroke 03 MOTHER Hypertension 03 MOTHER G8 BROTHER Myocardial infarction 03 MOTHER Thyroid disease G8 SISTER Physical Exam Vital Signs Vital Signs - First Documented 11/13/18 20:12 Temp 97.2 Pulse 68 Resp 20 B/P (MAP) 134/81 (98) Pulse Ox 97 O2 Delivery Room Air Capillary Refill : Height, Weight, BMI Height: 5'2.00" Weight: 298lbs. 8.0oz. 135.652206rc; 57.7 BMI Method:Stated General Appearance: WD/WN, no apparent distress HEENT: PERRL/EOMI, normal ENT inspection Respiratory: no respiratory distress, no accessory muscle use Gastrointestinal: normal bowel sounds, soft Pelvic: normal external exam (no sign of vaginitis or candidal infection); No discharge (she has had a hysterectomy), No lesions; other (pelvic exam donewith Noemi, PCT at the bedside) Extremities: normal range of motion, non-tender Neurologic/Psychiatric: alert, normal mood/affect, oriented x 3 Skin: normal color, warm/dry Progress/Results/Core Measures Suspected Sepsis SIRS Temperature: Pulse: Respiratory Rate: Blood Pressure / Mean: Results/Orders Lab Results Laboratory Tests Test 11/13/18 20:20 11/13/18 21:10 Range/Units Urine Color YELLOW Urine Clarity SLIGHTLY CLOUDY Urine pH 5 5-9 Urine Specific [place] 1.025 H 1.016-1.022 Urine Protein 1+ H NEGATIVE Urine Glucose (UA) NEGATIVE NEGATIVE Urine Ketones 1+ H NEGATIVE Urine Nitrite NEGATIVE NEGATIVE Urine Bilirubin NEGATIVE NEGATIVE Urine Urobilinogen 4 H NORMAL MG/DL Urine Leukocyte Esterase 1+ H NEGATIVE Urine RBC (Auto) 2+ H NEGATIVE Urine RBC NONE /HPF Urine WBC 5-10 H /HPF Urine Squamous Epithelial Cells 25-50 H /HPF Urine Crystals NONE /LPF Urine Bacteria FEW H /HPF Urine Casts PRESENT /LPF Urine Hyaline Casts RARE /LPF Urine Mucus NEGATIVE /LPF Urine Culture Indicated YES My Orders Orders - SHALOM RAMÍREZ APRN Ua Culture If Indicated (11/13/18 19:32) Phenazopyridine Tablet (Pyridium Tablet) (11/13/18 20:30) Urine Culture (11/13/18 20:20) Wet Prep (11/13/18 21:02) Neisseria Gonorrhea Swab (11/13/18 21:02) Genital Culture (11/13/18 21:02) Chlamydia Trachomatis Swab (11/13/18 21:02) Cefdinir Capsule (Omnicef Capsule) (11/13/18 21:30) Medications Given in ED Current Medications Medications Dose Ordered Sig/Marcio Route Start Time Stop Time Status Last Admin Dose Admin Phenazopyridine HCl 100 mg ONCE ONCE PO 11/13/18 20:30 11/13/18 20:31 DC 11/13/18 20:30 100 MG Vital Signs/I&O 11/13/18 20:12 Temp 97.2 Pulse 68 Resp 20 B/P (MAP) 134/81 (98) Pulse Ox 97 O2 Delivery Room Air Capillary Refill : Departure Impression Primary Impression: Urinary tract infection Qualified Codes: N30.00 - Acute cystitis without hematuria Disposition: HOME, SELF-CARE Condition: Stable Departure-Patient Inst. Decision time for Depature: 21:10 Referrals: [facility] (PCP) Primary Care Physician NEVA HU APRN (Family) Primary Care Physician Patient Instructions: Urinary Tract Infection, Adult (DC) Add. Discharge Instructions: 1. Return to ER for any concerns 2. Follow-up with your doctor next week. Scripts Cefuroxime Axetil (Cefuroxime) 250 Mg Tablet 250 MG PO BID, #10 TAB Prov: SHALOM RAMÍREZ APRN 11/13/18 SHALOM RAMÍREZ APRN Nov 13, 2018 20:19
--- OUTSIDE RECORDS SUMMARY | 2018-11-13 20:19 | XMS REPORT ---
Author Author Migration, Doctor Organization [facility] Address Unknown Phone Unavailable Care Team Providers Care Rn Infusion Name Role Phone Migration, Doctor Unavailable Unavailable PROBLEMS Type Condition ICD9-CM Code NRS12-KU Code Onset Dates Condition Status SNOMED Code Problem Unspecified hypothyroidism E03.9 0 42525245 Problem Esophageal reflux K21.9 0 797147691 Problem Shortness of breath R06.02 Apr, 0 853087592 Problem Dyslipidemia E78.5 Oct, 0 948988575 Problem Pulmonary embolus I26.99 Oct, 0 77044681 Problem Osteoarthritis of right knee M17.11 13 May, 2009 0 021196235 Problem Unspecified sleep apnea G47.30 0 15487390 Problem Hyperlipidemia LDL goal <70 E78.5 Active 36585085 Problem Nonintractable migraine G43.009 08 Oct, 2015 0 659797277 Problem Migraine with aura and without status migrainosus, not intractable G43.109 Active 0760775 Problem Generalized anxiety disorder F41.1 Apr, 0 30040372 Problem Morbid obesity with BMI of 50.0-59.9, adult Z68.43 Active 134171835 Problem Hypothyroidism E03.9 Active 68748203 Problem Renal stones N20.0 Active 91710359 Problem Coronary artery disease I25.10 Active 31812421 ALLERGIES No Information ENCOUNTERS Encounter Location Date Diagnosis [facility] [address], [place] [address] Aug, [facility] [address], [place] [address] Jul, Right foot pain M79.671 and Morbid obesity E66.01 [facility] [address], [place] [address] Jul, Injury of right foot, initial encounter S99.921A and Morbid obesity E66.01 [facility] [id number], [place] [address] Jul, Recurrent syncope R55 and Morbid obesity E66.01 [facility] [id number] [place] [address] Jul, [facility] [id number] [place] [address] Jun, Hematuria, unspecified type R31.9 and BMI 50.0-59.9, adult Z68.43 [place] [id number] [place] [address] Jun, [address] [address] Jun, 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 [facility] [place] [id number] [place] [address] May, Ankle pain, right M25.571 and BMI 50.0-59.9, adult Z68.43 [place] [id number] [place] [address] May, [place] [id number] [place] [address] May, [place] [id number] [place] [address] Apr, [place] [id number] [place] [address] Apr, [facility] [id number] [place] [address] Apr, [facility] [id number] [place] [address] Apr, BMI 50.0-59.9, adult Z68.43 and Weakness R53.1 [facility] [address], [place] [address] Apr, [facility] [place] [id number] [place] [address] Apr, Dysuria R30.0 ; Hematuria R31.9 ; Renal lithiasis N20.0 and BMI 50.0- 59.9, adult Z68.43 [place] [id number] [place] [address] Apr, [place] [address] [address] Apr, [place] [address] [address] Apr, Hypothyroidism E03.9 [place] [address] [address] Apr, Burning with urination R30.0 ; Type 2 diabetes mellitus with diabetic neuropathic arthropathy, 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 ; Acute bilateral low back pain without sciatica M54.5 and BMI 50.0-59.9, adult Z68.43 [place] [address] [address] Mar, Hypothyroidism E03.9 [place] [address] [address] Feb, [facility] [place] [id number] [place] [address] Jan, [place] [address] [address] 07 Jan, 2018 Acute non-recurrent maxillary sinusitis J01.00 and BMI 50.0-59.9, adult Z68.43 [facility] [place] [address] [address] 04 Jan, 2018 Congestion of upper respiratory tract J98.8 and BMI 50.0-59.9, adult Z68.43 [place] [address] [address] Dec, Type 2 diabetes mellitus with diabetic neuropathic arthropathy, 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 ; Morbid obesity with BMI of 50.0- 59.9, adult Z68.43 ; Hypothyroidism E03.9 ; Coronary artery disease I25.10 ; Hyperlipidemia LDL goal <70 E78.5 ; Right lower quadrant abdominal pain R10.31 and Acute cystitis with hematuria N30.01 [facility] [id number] [place] [address] Dec, Migraine with aura and without status migrainosus, not intractable G43.109 ; Dehydration symptoms R63.8 and BMI 50.0-59.9, adult Z68.43 [facility] [address] [address] Oct, [facility] [id number] [place] [address] Oct, [facility] [address] [address] Oct, [facility] [id number] [place] [address] September, [facility] [id number] [place] [address] September, Type 2 diabetes mellitus with diabetic neuropathic arthropathy, 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 ; Hyperlipidemia, unspecified hyperlipidemia type E78.5 ; Personal history of pulmonary embolism Z86.711 ; Coronary artery disease I25.10 and Hypothyroidism E03.9 [facility] [id number] [place] [address] September, [facility] [address] [address] Aug, Type 2 diabetes mellitus with diabetic [...] without aura and with status migrainosus G43.011 [place] [id number] [place] [address] Aug, [place] [address] [address] Aug, [place] [address] [address] Jul, Renal stones N20.0 [facility] [address] [address] Jun, Back pain M54.9 ; Kidney stones N20.0 and BMI 50.0-59.9, adult Z68.43 [place] [address] [address] Jun, [place] [address] [address] Apr, [place] [address] [address] Apr, [place] [id number] [place] [address] Apr, Right foot pain M79.671 ; Acute gout involving toe of right foot, 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 and Arthritis M19.90 [place] [id number] [place] [address] 06 Apr, 2017 Gastroesophageal reflux disease without esophagitis K21.9 [place] [address] [address] 16 Mar, 2017 Hypothyroidism, unspecified E03.9 [place] [id number] [place] [address] Feb, [place] [id number] [place] [address] 25 Jan, 2017 Cervicalgia of atlbxznh-nvicdaa-icttq region M54.2 and Persistent headaches R51 [place] [id number] [place] [address] 20 Jan, 2017 [place] [id number] [place] [address] 12 Jan, 2017 Intractable migraine without aura and with status migrainosus G43.011 ; Cervical spine pain M54.2 ; Hyperlipidemia, unspecified hyperlipidemia type E78.5 ; Hypothyroidism E03.9 and Metabolic syndrome E88.81 [place] [address] [address] Jan, Hypothyroidism, unspecified E03.9 [place] [id number] [place] [address] Dec, Hypothyroidism, unspecified E03.9 [place] [address] [address] Dec, Hypothyroidism E03.9 [place] [address] [address] Nov, Laceration of left great toe w/o foreign body w/o damage to nail, initial encounter S91.112A [facility] [id number] [place] [address] Oct, Pain in left knee M25.562 and Arthritis M19.90 [place] [id number] [place] [address] Oct, Hypothyroidism, unspecified E03.9 and Hyperlipidemia, unspecified hyperlipidemia type E78.5 [place] [id number] [place] [address] Oct, Gastroesophageal reflux disease without esophagitis K21.9 [place] [address] [address] 14 Oct, 2016 Metabolic syndrome E88.81 ; Personal history of pulmonary embolism Z86.711 ; Other specified hypothyroidism E03.8 and Hyperlipidemia, unspecified hyperlipidemia type E78.5 [place] [id number] [place] [address] 13 Oct, 2016 Personal history of pulmonary embolism Z86.711 ; Dysuria R30.0 ; Metabolic syndrome E88.81 ; Other specified hypothyroidism E03.8 ; Hyperlipidemia, unspecified hyperlipidemia type E78.5 and Morbid obesity with BMI of 50.0-59.9, adult Z68.43 [place] [id number] [place] [address] September, [facility] [place] [id number] [place] [address] September, Wrist pain, left M25.532 and Acute pain of left knee M25.562 [place] [id number] [place] [address] Jul, Dysuria R30.0 [place] [id number] [place] [address] Jul, Dysuria R30.0 [place] [id number] [place] [address] Jul, Left lower quadrant pain R10.32 [place] [id number] [place] [address] 14 Jul, 2016 [place] [id number] [place] [address] 09 Jul, 2016 Coronary artery disease I25.10 ; Family history of diabetes mellitus Z83.3 ; Morbid obesity with BMI of 50.0-59.9, adult Z68.43 ; Metabolic syndrome E88.81 ; Personal history of pulmonary embolism Z86.711 ; Gastroesophageal reflux disease without esophagitis K21.9 ; Hypothyroidism, unspecified E03.9 ; Hyperlipidemia, unspecified hyperlipidemia type E78.5 and Left lower quadrant pain R10.32 [facility] [place] [id number] [place] [address] 09 Jul, 2016 [facility] [place] [id number] [place] [address] Jul, Morbid obesity with BMI of 50.0-59.9, adult Z68.43 [facility] [place] [id number] [place] [address] Jul, Generalized abdominal pain R10.84 [facility] [place] [id number] [place] [address] 02 Jun, 2016 Muscle strain of right upper back, initial encounter S29.012A [facility] [address] [address] May, Foreign body (FB) in soft tissue M79.[address] [address] Mar, Hypothyroidism, unspecified E03.9 and Arthritis M19.90 [place] [id number] [place] [address] 13 Feb, 2016 Coronary artery disease I25.10 ; Morbid obesity with BMI of 50.0- 59.9, adult Z68.43 ; Metabolic syndrome E88.81 ; Gastroesophageal reflux disease without esophagitis K21.9 ; Hypothyroidism, unspecified E03.9 ; Personal history of pulmonary embolism Z86.711 and Hyperlipidemia, unspecified hyperlipidemia type E78.5 [place] [id number] [place] [address] 10 Feb, 2016 [facility] [place] [id number] [place] [address] 12 Jan, 2016 Acute right-sided thoracic back pain M54.6 [place] [id number] [place] [address] 01 Jan, 2016 Acute pain of left knee M25.562 [place] [address] [address] Dec, Dysuria R30.0 ; Metabolic syndrome E88.81 ; Acute pain of left knee M25.562 ; Acute cystitis with hematuria N30.01 and Acute left eye pain H57.12 [place] [id number] [place] [address] Dec, [place] [id number] [place] [address] Dec, [place] [id number] [place] [address] Dec, Hypothyroidism, unspecified E03.9 [place] [address] [address] Dec, [place] [id number] [place] [address] Nov, Peripheral edema R60.9 and Acute pain of left knee M25.562 [facility] [id number] [place] [address] September, [place] [address] [address] September, Metabolic syndrome E88.81 and Allergy, subsequent encounter T78.40XD [facility] [place] [id number] [place] [address] September, Muscle strain T14.8 [place] [id number] [place] [address] Aug, Chest pressure R07.89 ; Metabolic syndrome E88.81 ; Morbid obesity with BMI of 50.0-59.9, adult Z68.43 ; Esophageal reflux 530.81 and Shortness of breath R06.02 [place] [id number] [place] [address] Aug, [place] [address] [address] Aug, [place] [id number] [place] [address] Aug, Hypothyroidism, unspecified E03.9 [place] [address] [address] Aug, Routine health maintenance Z00.00 [facility] [place] [address] [address] Aug, [place] [address] [address] Jul, Routine health maintenance Z00.00 ; Family history of diabetes mellitus Z83.3 ; Family history of cancer Z80.9 and Morbid obesity with BMI of 50.0- 59.9, adult Z68.43 [facility] [place] [address] [address] Jul, Allergic rhinitis J30.9 and Postnasal drip R09.82 [place] [address] [address] 18 Jul, 2015 Influenza J11.1 [facility] [address] [address] 08 Jul, 2015 Dysuria R30.0 [place] [address] [address] Apr, [place] [address] [address] Mar, Acute upper respiratory infection, unspecified J06.9 and Hypothyroidism E03.9 [place] [address] [address] Mar, [place] [address] [address] Feb, Coronary artery disease I25.10 [place] [address] [address] Feb, Left foot pain M79.672 [facility] [id number] [address] Jan, UTI (urinary tract infection) 599.0 [facility] [address], [place] [address] Jan, Urinary tract infection, site not specified 599.0 [facility] [address], [place] [address] Jan, Urinary tract infection, site not specified 599.0 [facility] [id number] [address] Jan, [facility] [address] [place] [address] Dec, Headache 784.0 [facility] [address], [place] [address] Dec, Urinary tract infection, site not specified 599.0 [facility] [address], [place] [address] Dec, Urinary tract infection, site not specified 599.0 [facility] [address] [place] [address] Dec, Urinary tract infection, site not specified 599.0 [facility] [id number] [address] Nov, Unspecified sleep apnea 780.57 ; Encounter for long-term (current) use of anticoagulants V58.61 ; Routine general medical examination at health care facility V70.0 and Arthritis of both knees 716.96 [facility] [address], [place] [address] September, Cat bite of hand 882.0 and Rectal bleeding 569.3 [facility] [id number] [address] Aug, [facility] [id number] [address] Aug, [facility] [place] [facility] [address] [id number] [place] [address] Jul, [facility] [place] [facility] [address] [id number] [place] [address] Jul, [facility] [place] [facility] [address] [id number] [place] [address] Jul, [facility] [place] [facility] [address] [id number] [place] [address] Jul, [facility] [place] [facility] [address] [id number] [place] [address] Jul, [facility] [place] [facility] [address] [id number] [place] [address] Jul, [facility] [place] [facility] [address] [id number] [place] [address] Jul, [facility] [place] [facility] [address] [id number] [place] [address] Jul, [facility] [place] [facility] [address] [id number] [place] [address] May, [facility] [place] [facility] [address] [id number] [place] [address] May, [facility] [place] [facility] [address] [id number] [place] [address] May, [facility] [place] [facility] [address] [id number] [place] [address] May, [facility] [place] [facility] [address] [id number] [place] [address] May, [facility] [place] [facility] [address] [id number] [place] [address] May, [facility] [place] [facility] [address] [id number] [place] [address] May, [facility] [place] [facility] [address] [id number] [place] [address] Mar, [facility] [place] [facility] [address] [id number] [place] [address] Mar, [facility] [place] [facility] [address] [id number] [place] [address] 08 Jan, 2013 [facility] [place] [facility] [address] [id number] [place] [address] Jan, 2013 [facility] [place] [facility] [address] [id number] [place] [address] Jan, 2013 [facility] [place] [facility] [address] [id number] [place] [address] Jan, 2013 [facility] [place] [facility] [address] [id number] [place] [address] Jan, 2013 [facility] [place] [facility] [address] [id number] [place] [address] Jan, 2013 [facility] [place] [facility] [address] [id number] [place] [address] Dec, [facility] [place] [facility] [address] [id number] [place] [address] Dec, [facility] [place] [facility] [address] [id number] [place] [address] Dec, [facility] [place] [facility] [address] [id number] [place] [address] Dec, [facility] [place] [facility] [address] [id number] [place] [address] Dec, [facility] [place] [facility] [address] [id number] [place] [address] Dec, [facility] [place] [facility] [address] [id number] [place] [address] Dec, [facility] [place] [facility] [address] [id number] [place] [address] Dec, [facility] [place] [facility] [address] [id number] [place] [address] Dec, [facility] [place] [facility] [address] [id number] [place] [address] Dec, [facility] [place] [facility] [address] [id number] [place] [address] Nov, [facility] [place] [facility] [address] [id number] [place] [address] Nov, [facility] [place] [facility] [address] [id number] [place] [address] September, [facility] [place] [facility] [address] [id number] [place] [address] September, [facility] [place] [facility] [address] [id number] [place] [address] September, [facility] [place] [facility] [address] [id number] [place] [address] September, [facility] [place] [facility] [address] [id number] [place] [address] Aug, [facility] [place] [facility] [address] [id number] [place] [address] Aug, [facility] [place] [facility] [address] [id number] [place] [address] Aug, [facility] [place] [facility] [address] [id number] [place] [address] Aug, [facility] [place] [facility] [address] [id number] [place] [address] Aug, [facility] [place] [facility] [address] [id number] [place] [address] Aug, [facility] [place] [facility] [address] [id number] [place] [address] Aug, [facility] [place] [facility] [address] [id number] [place] [address] 08 Aug, 2013 [facility] [place] [facility] [address] [id number] [place] [address] 07 Aug, 2013 [facility] [place] [facility] [address] [id number] [place] [address] Aug, [facility] [place] [facility] [address] [id number] [place] [address] Aug, [facility] [place] [facility] [address] [id number] [place] [address] Aug, [facility] [place] [facility] [address] [id number] [place] [address] Jul, [facility] [place] [facility] [address] [id number] [place] [address] Jul, [facility] [place] [facility] [address] [id number] [place] [address] Jul, [facility] [place] [facility] [address] [id number] [place] [address] Jul, [facility] [place] [facility] [address] [id number] [place] [address] Jul, [facility] [place] [facility] [address] [id number] [place] [address] Jul, [facility] [place] [facility] [address] [id number] [place] [address] Jul, [facility] [place] [facility] [address] [id number] [place] [address] Jul, [facility] [place] [facility] [address] [id number] [place] [address] Jul, [facility] [place] [facility] [address] [id number] [place] [address] Jul, [facility] [place] [facility] [address] [id number] [place] [address] Jun, [facility] [place] [facility] [address] [id number] [place] [address] Jun, [facility] [place] [facility] [address] [id number] [place] [address] Jun, [facility] [place] [facility] [address] [id number] [place] [address] Jun, [facility] [place] [facility] [address] [id number] [place] [address] Jun, [facility] [place] [facility] [address] [id number] [place] [address] Jun, [facility] [place] [facility] [address] [id number] [place] [address] Jun, [facility] [place] [facility] [address] [id number] [place] [address] Jun, [facility] [place] [facility] [address] [id number] [place] [address] Jun, [facility] [place] [facility] [address] [id number] [place] [address] Jun, [facility] [place] [facility] [address] [id number] [place] [address] Jun, [facility] [place] [facility] [address] [id number] [place] [address] Jun, [facility] [place] [facility] [address] [id number] [place] [address] May, [facility] [place] [facility] [address] [id number] [place] [address] May, [facility] [place] [facility] [address] [id number] [place] [address] May, [facility] [place] [facility] [address] [facility] [id number] [place] [address] May, [facility] [place] [facility] [address] [id number] [place] [address] May, [facility] [place] [facility] [address] [id number] [place] [address] May, [facility] [place] [facility] [address] [id number] [place] [address] May, [facility] [place] [facility] [address] [id number] [place] [address] May, [facility] [place] [facility] [address] [id number] [place] [address] May, [facility] [place] [facility] [address] [id number] [place] [address] May, [facility] [place] [facility] [address] [id number] [place] [address] May, [facility] [place] [facility] [address] [id number] [place] [address] May, [facility] [place] [facility] [address] [id number] [place] [address] May, [facility] [place] [facility] [address] [id number] [place] [address] May, [facility] [place] [facility] [address] [id number] [place] [address] May, [facility] [place] [facility] [address] [id number] [place] [address] Apr, [facility] [place] [facility] [address] [id number] [place] [address] Apr, [facility] [place] [facility] [address] [id number] [place] [address] Apr, [facility] [place] [facility] [address] [id number] [place] [address] Apr, [facility] [place] [facility] [address] [id number] [place] [address] Mar, [facility] [place] [facility] [address] [id number] [place] [address] Mar, [facility] [place] [facility] [address] [id number] [place] [address] Mar, [facility] [place] [facility] [address] [id number] [place] [address] Mar, [facility] [place] [facility] [address] [id number] [place] [address] Mar, [facility] [place] [facility] [address] [id number] [place] [address] Mar, [facility] [place] [facility] [address] [id number] [place] [address] Mar, [facility] [place] [facility] [address] [id number] [place] [address] Mar, [facility] [place] [facility] [address] [id number], [place] [address] Mar, [facility] [place] [facility] [address] [id number] [place] [address] Mar, [facility] [place] [facility] [address] [id number], [place] [address] Mar, [facility] [place] [facility] [address] [id number], [place] [address] Mar, [facility] [place] [facility] [address] [id number], [place] [address] 03 Feb, 2013 [facility] [place] [facility] [address] [id number], [place] [address] 18 Sep2012 [facility] [place] [facility] [address] [id number], [place] [address] 17 Sep2012 [facility] [place] [facility] [address] [id number], [place] [address] 06 Jan, 2013 [facility] [place] [facility] [address] [id number] [place] [address] 04 Jan, 2013 [facility] [place] [facility] [address] [id number] [place] [address] Jan, [facility] [place] [facility] [address] [id number] [place] [address] Dec, [facility] [place] [facility] [address] [id number] [place] [address] Dec, [facility] [place] [facility] [address] [id number] [place] [address] Dec, [facility] [place] [facility] [address] [id number] [place] [address] Dec, [facility] [place] [facility] [address] [id number] [place] [address] Dec, [facility] [place] [facility] [address] [id number] [place] [address] Dec, [facility] [place] [facility] [address] [id number] [place] [address] Dec, [facility] [place] [facility] [address] [id number] [place] [address] Dec, [facility] [place] [facility] [address] [id number] [place] [address] Nov, [facility] [place] [facility] [address] [id number] [place] [address] Nov, [facility] [place] [facility] [address] [id number] [place] [address] Nov, [facility] [place] [facility] [address] [id number] [place] [address] Nov, [facility] [place] [facility] [address] [id number] [place] [address] Nov, [facility] [place] [facility] [address] [id number] [place] [address] Nov, [facility] [place] [facility] [address] [id number] [place] [address] Oct, [facility] [address] [id number] [place] [id number] Oct, [facility] [address] [id number] [place] [id number] Oct, [facility] [address] [id number] [place] [id number] Oct, [facility] [address] [id number] [place] [id number] Oct, [facility] [place] [facility] [address] [id number] [place] [address] Oct, [facility] [place] [facility] [address] [id number] [place] [address] Oct, [facility] [place] [facility] [address] [id number], [place] [address] Oct, [facility] [place] [facility] [address] [id number] [place] [address] Oct, [facility] [place] [facility] [address] [id number] [place] [address] Oct, [facility] [place] [facility] [address] [id number] [place] [address] Oct, [facility] [place] [facility] [address] [id number], [place] [address] September, [facility] [place] [facility] [address] [id number], [place] [address] Aug, [facility] [place] [facility] [address] [id number] [place] [address] Aug, [facility] [place] [facility] [address] [id number] [place] [address] Aug, [facility] [place] [facility] [address] [id number] [place] [address] Aug, [facility] [place] [facility] [address] [id number] [place] [address] 24 Jul, 2012 [facility] [address] [id number] [place] [address] Jul, [facility] [place] [facility] [address] [id number] [place] [address] 20 Jul, 2012 [facility] [address] [id number] [place] [address] 05 Jul, 2012 [facility] [address] [id number] [place] [address] 04 Jul, 2012 [facility] [address] [id number] [place] [address] 19 Jun, 2012 [facility] [address] [id number] [place] [address] Jun, [facility] [address] [id number] [place] [address] Jun, [facility] [address] [id number] [place] [address] May, [facility] [address] [id number] [place] [address] 24 May, 2012 [facility] [address] [id number] [place] [address] May, [facility] [address] [id number] [place] [address] May, [facility] [address] [id number] [place] [address] May, [facility] [place] [facility] [address] [id number] [place] [address] May, [facility] [place] [facility] [address] [id number] [place] [address] Apr, [facility] [address] [id number] [place] [address] 18 Apr, 2012 [facility] [place] [facility] [address] [id number] [place] [address] Apr, [facility] [place] [facility] [address] [id number] [place] [address] Apr, [facility] [place] [facility] [address] [facility] [id number] [place] [address] Apr, [facility] [place] [facility] [address] [id number] [place] [address] Apr, [facility] [place] [facility] [address] [id number] [place] [address] Apr, [facility] [place] [facility] [address] [id number] [place] [address] Mar, [facility] [place] [facility] [address] [facility] [id number] [place] [address] Mar, [facility] [place] [facility] [address] [facility] [id number] [place] [address] Mar, [facility] [place] [facility] [address] [facility] [id number] [place] [address] Mar, [facility] [place] [facility] [address] [facility] [id number], [place] [address] 18 Jan, 2012 [facility] [place] [facility] [address] [id number], [place] [address] Jan, [facility] [place] [facility] [address] [id number], [place] [address] Jan, [facility] [place] [facility] [address] [facility] [id number], [place] [address] Jan, [facility] [address] [facility] [id number][place] [id number] Dec, [facility] [place] [facility] [address] [facility] [id number], [place] [address] Dec, [facility] [address] [id number] [address] Dec, [facility] [address] [facility] [id number], [place] [address] Dec, [facility] [id number], [place] [address] Dec, [facility] [address] [id number], [place] [address] Dec, [facility] [id number], [place] [address] Nov, [facility] [address] [facility] [id number], [place] [address] Nov, [facility] [address] [id number], [place] [address] Nov, IMMUNIZATIONS No Known Immunizations SOCIAL HISTORY Never Assessed REASON FOR VISIT E[facility] PLAN OF CARE [...] Stent placed 08/19/2017 Hospitalization History Syncope- [facility] 12/2017 Hospitalization History heart cath ( 06/23/18-06/25/2018) 06/23/2018
--- NOTE | 2018-11-13 20:29 | NUR ---
UA TO LAB BY
[2018-11-13] MEDS ORDERED: PHENAZOPYRIDINE 100 MG (PYRIDIUM) TABLET PO ONE (20:30)
[2018-11-13 20:32] LABS: BILIRUBIN,URINE NEGATIVE (NEGATIVE); CLARITY,URINE SLIGHTLY CLOUDY; COLOR,URINE YELLOW; GLUCOSE, URINE (UA) NEGATIVE (NEGATIVE); KETONES,URINE 1+ (NEGATIVE); LEUKOCYTE ESTERASE ,URINE 1+ (NEGATIVE); NITRITE,URINE NEGATIVE (NEGATIVE); PH,URINE 5 (5-9); PROTEIN,URINE 1+ (NEGATIVE); UROBILINOGEN,URINE 4 MG/DL (NORMAL)
[2018-11-13 20:42] LABS: BACTERIA,URINE FEW /HPF; HYALINE CASTS, URINE RARE /LPF; SQUAMOUS EPITHELIAL CELL,UR 25-50 /HPF
--- NOTE | 2018-11-13 21:05 | NUR ---
FEMALE STAFF DOING PELVIC WITH
--- OUTSIDE RECORDS SUMMARY | 2018-11-13 21:10 | XMS REPORT | Continuity of Care Document ---
Author Organization Unknown Address Unknown Allergies Active Description Code Type Severity Reaction Onset Reported/Identified Relationship to Patient Clinical Status Yes Amoxicillin Drug Allergy N/A N/A 12/05/2011 Yes dexamethasone Drug Allergy N/A N/A 12/05/2011 Yes methylprednisolone Drug Allergy N/A [...] N/A 08/16/2013 Yes bee venom (honey bee) [id number] Drug Allergy Unknown N/A 02/02/2014 Yes methylprednisolone [id number] Drug Allergy Mild N/A 11/05/2018 Yes atorvastatin [id number] Drug Allergy Unknown N/A 11/05/2018 Yes isosorbide [id number] Drug Allergy Unknown N/A 11/05/2018 Yes ketorolac [id number] Drug Allergy Unknown ITCHING 11/05/2018 Yes Penicillins [id number] Drug Allergy Unknown N/A 11/05/2018 Yes promethazine [id number] Drug Allergy Unknown hallucinations 11/05/2018 Yes venom-honey bee [id number] Drug Allergy Unknown N/A 11/05/2018 Medications There is no data. 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 [...] EXAMINATION AT A HEALTH CARE FACILITY 12/05/2011 DOYLE PA-C, CHARLES M 786.05 Shortness Of Breath 12/05/2011 DOYLE PA-C, CHARLES M 789.00 Abdominal Pain Unspecified Site 12/05/2011 DOYLE PA-C, CHARLES M V12.55 Personal History Of Pulmonary Embolism 12/05/2011 DOYLE PA-C, CHARLES M V70.0 ROUTINE GENERAL MEDICAL EXAMINATION AT [...] AT A HEALTH CARE FACILITY 12/05/2011 VIVIENNE INTEGRATION SOFTWARE DEVELOPER, DONI S 786.05 Shortness Of Breath 12/05/2011 VIVIENNE INTEGRATION SOFTWARE DEVELOPER, DONI S 789.00 Abdominal Pain Unspecified Site 12/05/2011 VIVIENNE INTEGRATION SOFTWARE DEVELOPER DONI S V12.55 Personal History Of Pulmonary Embolism 12/05/2011 VIVIENNE INTEGRATION SOFTWARE DEVELOPER, DONI S V70.0 ROUTINE GENERAL MEDICAL EXAMINATION [...] EXAMINATION AT A HEALTH CARE FACILITY 12/05/2011 JULI BIRMINGHAM APRNINA R 786.05 Shortness Of Breath 12/05/2011 VALENCIA YORK, CHERYL R 789.00 Abdominal Pain Unspecified Site 12/05/2011 JULI BIRMINGHAM APRNINA R V12.55 Personal History Of Pulmonary Embolism 12/05/2011 VALENCIA YORK CHERYL R V70.0 ROUTINE GENERAL MEDICAL EXAMINATION AT A HEALTH CARE FACILITY 12/05/2011 VIVEK PA-CRENETTAUA M 786.05 Shortness Of Breath 12/05/2011 VIVEK CALABRESE-CRENETTAUA M 789.00 Abdominal Pain Unspecified Site 12/05/2011 VIVEK CALABRESE-CRENETTAUA M V12.55 Personal History Of Pulmonary Embolism 12/05/2011 VIVEK CALABRESE-CRENETTAUA M V70.0 ROUTINE GENERAL MEDICAL EXAMINATION AT A HEALTH CARE FACILITY 12/05/2011 ARIZA DO, JOSE ALBERTO K 786.05 Shortness Of Breath 12/05/2011 ARIZA DO, JOSE ALBERTO K 789.00 Abdominal Pain Unspecified Site 12/05/2011 ARIZA DO, JOSE ALBERTO K V12.55 Personal History Of Pulmonary Embolism 12/05/2011 ARIZA DO, JOSE ALBERTO K V70.0 ROUTINE GENERAL MEDICAL EXAMINATION AT A HEALTH CARE FACILITY 12/05/2011 VALENCIA YORK CHERYL R 786.05 Shortness Of Breath 12/05/2011 VALENCIA YORK, CHERYL R 789.00 Abdominal Pain Unspecified Site 12/05/2011 JULI BIRMINGHAM APRNINA R V12.55 Personal History Of Pulmonary Embolism 12/05/2011 CHERYL BIRMINGHAM APRN V70.0 ROUTINE GENERAL MEDICAL EXAMINATION AT A [...] EXAMINATION AT A HEALTH CARE FACILITY 12/05/2011 RAIZA DO, JOSE ALBERTO K 786.05 Shortness Of [...] A HEALTH CARE FACILITY 12/06/2011 V58.61 LONG-TERM (CURRENT) USE OF ANTICOAGULANTS 12/06/2011 V58.61 LONG-TERM (CURRENT) USE OF ANTICOAGULANTS 12/06/2011 V58.61 LONG-TERM (CURRENT) USE OF ANTICOAGULANTS 12/06/2011 CHRISTOPHER ARIZA DOA K V58.61 LONG-TERM (CURRENT) USE OF ANTICOAGULANTS 12/06/2011 ARIZA DO, JOSE ALBERTO K V58.61 LONG-TERM (CURRENT) USE OF ANTICOAGULANTS 12/06/2011 V58.61 LONG-TERM (CURRENT) USE OF ANTICOAGULANTS 12/06/2011 CHARLES DOYLE PA-C V58.61 LONG-TERM (CURRENT) USE OF ANTICOAGULANTS 12/06/2011 ARIZA DO, JOSE ALBERTO K V58.61 LONG-TERM (CURRENT) USE OF ANTICOAGULANTS 12/06/2011 ARIZA DO, JOSE ALBERTO K V58.61 LONG-TERM (CURRENT) USE OF ANTICOAGULANTS 12/06/2011 V58.61 LONG-TERM (CURRENT) USE OF ANTICOAGULANTS 12/06/2011 V58.61 LONG-TERM (CURRENT) USE OF ANTICOAGULANTS 12/06/2011 V58.61 LONG-TERM (CURRENT) USE OF ANTICOAGULANTS 12/06/2011 V58.61 LONG-TERM (CURRENT) USE OF ANTICOAGULANTS 12/06/2011 V58.61 LONG-TERM (CURRENT) USE OF ANTICOAGULANTS 12/06/2011 V58.61 LONG-TERM (CURRENT) USE OF ANTICOAGULANTS 12/06/2011 V58.61 LONG-TERM (CURRENT) USE OF ANTICOAGULANTS 12/06/2011 [...] USE OF ANTICOAGULANTS 12/06/2011 CHERYL BIRMINGHAM APRN R V58.61 LONG-TERM (CURRENT) USE OF ANTICOAGULANTS 12/06/2011 [...] 01/15/2012 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 01/15/2012 ARIZA DO JOSE ALBERTO K 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 01/15/2012 ARIZA DO, JOSE ALBERTO K 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 01/15/2012 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 01/15/2012 CHARLES DOYLE PA-C 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 01/15/2012 ARIZA DOCHRISTOPHERA K 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 01/15/2012 ARIZA [...] RADIAL STYLOID TENOSYNOVITIS 01/15/2012 CHERYL BIRMINGHAM APRN R 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 01/15/2012 VIVEK DUMONT, CHARLES Santos 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 01/15/2012 ARIZA DO, JOSE ALBERTO K 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 01/15/2012 CHERYL BIRMINGHAM APRN R 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 01/15/2012 ARIZA DO, [...] V58.61 ANTICOAGULANTS,LT,CURRENT USE 01/17/2012 Ot V58.69 OTH MED,LT,CURRENT USE 01/19/2012 Ot 574.20 CHOLELITHIASIS NOS 01/19/2012 Ot 789.00 ABDOMINAL PAIN, UNSPECIFIED SITE 02/04/2012 Ot 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 ATHEROSCLER NOS TYPE VESSEL, NATIV 02/04/2012 Ot 575.11 CHRONIC CHOLECYSTITIS 02/04/2012 Ot V45.81 AORTOCORONARY BYPASS 02/04/2012 Ot V58.61 ANTICOAGULANTS,LT,CURRENT USE 03/18/2012 Ot 244.9 HYPOTHYROIDISM NOS 03/18/2012 Ot 272.4 HYPERLIPIDEMIA NEC/NOS 03/18/2012 Ot 278.00 OBESITY, NOS 03/18/2012 Ot 414.01 CORONARY ATHEROSCLEROSIS OF INUPIAT CORON 03/18/2012 Ot 433.10 CAROTID ARTERY OCCLUSION [...] VALENCIA YORK, CHERYL R 414.00 CAD 03/19/2012 CHARLES DOYLE PA-C [...] K 414.00 CAD 03/19/2012 ARIZA DO, JOSE ALEBRTO K 414.00 CAD 03/19/2012 ARIZA DO, JOSE [...] DO, JOSE ALBERTO K 723.1 CERVICALGIA 04/20/2012 VIVIENNE YORK, DONI S 723.1 CERVICALGIA 04/20/2012 ARIZA DO, JOSE ALBERTO K 723.1 CERVICALGIA 04/20/2012 ARIZA DO, JOSE ALBERTO K 723.1 CERVICALGIA 04/20/2012 ARIZA DO, JOSE ALBERTO K 723.1 CERVICALGIA 04/20/2012 VALENCIA INTEGRATION SOFTWARE DEVELOPER, CHERYL R 723.1 CERVICALGIA 04/20/2012 CHARLES DOYLE PA-C 723.1 CERVICALGIA 04/20/2012 ARIZA DO, JOSE ALBERTO K 723.1 CERVICALGIA 04/20/2012 VALENCIA INTEGRATION SOFTWARE DEVELOPER, CHERYL R 723.1 CERVICALGIA 04/20/2012 ARIZA DO, [...] CHERYL R 244.9 UNSPECIFIED ACQUIRED HYPOTHYROIDISM 04/27/2012 CHARLES [...] 466.0 BRONCHITIS, ACUTE 05/14/2012 ARIZA DO, JOSE ALBETRO K 466.0 BRONCHITIS, ACUTE 05/14/2012 ARIZA DO, JOSE ALBERTO K 466.0 BRONCHITIS, ACUTE 05/14/2012 ARIZA DO, JOSE ALBERTO K 466.0 BRONCHITIS, ACUTE 05/14/2012 ARIZA DO, JOSE ALBERTO K 466.0 BRONCHITIS, ACUTE 05/14/2012 ARIZA DO, JOSE ALBERTO K 466.0 BRONCHITIS, ACUTE 05/14/2012 ARIZA DO, JOSE ALBERTO K 466.0 BRONCHITIS, ACUTE 05/14/2012 VIVIENNE YORK, DONI S 466.0 BRONCHITIS, ACUTE 05/14/2012 ARIZA DO, JOSE ALBERTO K 466.0 BRONCHITIS, ACUTE 05/14/2012 ARIZA DO, JOSE ALBERTO K 466.0 BRONCHITIS, ACUTE 05/14/2012 ARIZA DO, JOSE ALBERTO K 466.0 BRONCHITIS, ACUTE 05/14/2012 VALENCIA INTEGRATION SOFTWARE DEVELOPER, CHERYL R 466.0 BRONCHITIS, ACUTE 05/14/2012 CHARLES DOYLE PA-C 466.0 BRONCHITIS, ACUTE 05/14/2012 ARIZA DO, JOSE LABERTO K 466.0 BRONCHITIS, ACUTE 05/14/2012 VALENCIA INTEGRATION SOFTWARE DEVELOPER, CHERYL R 466.0 BRONCHITIS, ACUTE 05/14/2012 ARIZA [...] DO, JOSE ALBERTO K 786.09 DYSPNEA 06/03/2012 VALENCIA INTEGRATION SOFTWARE DEVELOPER, CHERYL R 786.09 DYSPNEA 06/03/2012 CHARLES DOYLE PA-C 786.09 DYSPNEA 06/03/2012 ARIZA DO, JOSE ALBERTO K 786.09 DYSPNEA 06/03/2012 VALENCIA MAXN, CHERYL R 786.09 DYSPNEA 06/03/2012 ARIZA DO, JOSE ALBERTO [...] DYSPNEA 06/10/2012 729.5 PAIN IN LIMB 06/10/2012 CHARLES DOYLE [...] K 729.5 PAIN IN LIMB 06/10/2012 VALENCIA INTEGRATION SOFTWARE DEVELOPER, CHERYL R 729.5 PAIN IN LIMB 06/10/2012 CHARLES DOYLE PA-C 729.5 PAIN IN LIMB 06/10/2012 ARIZA DO, JOSE ALBERTO K 729.5 PAIN IN LIMB 06/10/2012 VALENCIA INTEGRATION SOFTWARE DEVELOPER, CHERYL R 729.5 PAIN IN LIMB 06/10/2012 ARIZA [...] 788.1 PAIN DURING URINATION (DYSURIA) 07/13/2012 VIVIENNE INTEGRATION SOFTWARE DEVELOPER, DONI S 599.70 HEMATURIA 07/13/2012 VIVIENNE INTEGRATION SOFTWARE DEVELOPER, DONI S 780.4 DIZZINESS 07/13/2012 VIVIENNE INTEGRATION SOFTWARE DEVELOPER, DONI S 788.1 PAIN DURING URINATION (DYSURIA) [...] 788.1 PAIN DURING URINATION (DYSURIA) 07/13/2012 VALENCIA INTEGRATION SOFTWARE DEVELOPER, CHERYL R 599.70 HEMATURIA 07/13/2012 VALENCIA INTEGRATION SOFTWARE DEVELOPER, CHERYL R 780.4 DIZZINESS 07/13/2012 VALENCIA INTEGRATION SOFTWARE DEVELOPER, CHERYL R 788.1 PAIN DURING URINATION (DYSURIA) 07/13/2012 CHARLES DOYLE PA-C 599.70 HEMATURIA 07/13/2012 CHARLES DOYLE PA-C 780.4 DIZZINESS 07/13/2012 CHARLES DOYLE PA-C 788.1 PAIN DURING URINATION (DYSURIA) 07/13/2012 RAIZA DO, JOSE ALBERTO K 599.70 HEMATURIA 07/13/2012 ARIZA DO, JOSE ALBERTO K 780.4 DIZZINESS 07/13/2012 ARIZA DO, JOSE ALBERTO K 788.1 PAIN DURING URINATION (DYSURIA) 07/13/2012 VALENCIA INTEGRATION SOFTWARE DEVELOPER, CHERYL R 599.70 HEMATURIA 07/13/2012 VALENCIA INTEGRATION SOFTWARE DEVELOPER, CHERYL R 780.4 DIZZINESS 07/13/2012 VALENCIA INTEGRATION SOFTWARE DEVELOPER, CHERYL R 788.1 PAIN DURING URINATION (DYSURIA) [...] UNSPECIFIED SITE OF ANKLE SPRAIN 08/31/2012 ARIZA DOCHRISTOPHERA K 719.47 PAIN IN JOINT INVOLVING ANKLE AND FOOT 08/31/2012 ARIZA DO JOSE ALBERTO K 845.00 UNSPECIFIED SITE OF ANKLE SPRAIN 08/31/2012 VALENCIA INTEGRATION SOFTWARE DEVELOPER, CHERYL R 719.47 PAIN IN JOINT INVOLVING ANKLE AND FOOT 08/31/2012 VALENCIA INTEGRATION SOFTWARE DEVELOPER, CHERYL R 845.00 UNSPECIFIED SITE OF ANKLE SPRAIN 08/31/2012 ARIZA DO JOSE ALBERTO K 719.47 PAIN IN JOINT INVOLVING ANKLE AND FOOT 08/31/2012 ARIZA DO, JOSE ALBERTO K 845.00 UNSPECIFIED SITE OF ANKLE SPRAIN 08/31/2012 ARIZA DO JOSE ALBERTO K 719.47 PAIN IN JOINT INVOLVING ANKLE AND FOOT 08/31/2012 ARIZA DO JOSE ALBERTO K 845.00 UNSPECIFIED SITE OF ANKLE SPRAIN 08/31/2012 ARIZA DO JOSE ALBERTO K 719.47 PAIN IN JOINT INVOLVING ANKLE AND FOOT 08/31/2012 ARIZA DO, JOSE ALBERTO K 845.00 UNSPECIFIED SITE OF ANKLE SPRAIN 08/31/2012 ARIZA DO JOSE ALBERTO K 719.47 PAIN IN JOINT INVOLVING ANKLE AND FOOT 08/31/2012 ARIZA DO, JOSE ALBERTO K 845.00 UNSPECIFIED SITE OF ANKLE SPRAIN 08/31/2012 ARIZA DO JOSE ALBERTO K 719.47 PAIN IN JOINT INVOLVING ANKLE AND FOOT 08/31/2012 ARIZA DO, JOSE ALBERTO K 845.00 UNSPECIFIED SITE OF ANKLE SPRAIN 08/31/2012 ARIZA DO, JOSE ALBERTO K 719.47 PAIN IN JOINT INVOLVING ANKLE AND FOOT 08/31/2012 ARIZA DO, JOSE ALBERTO K 845.00 UNSPECIFIED SITE OF ANKLE SPRAIN 08/31/2012 ARIZA DO JOSE ALBERTO K 719.47 PAIN IN JOINT [...] MD Ot V12.51 HX-VENOUS THROMBOSIS EMBOLISM 10/19/2012 ERAGAN MCNEILL MD Ot 244.0 POSTSURGICAL HYPOTHYROID 10/19/2012 REAGAN MCNEILL MD Ot 272.4 HYPERLIPIDEMIA NEC/NOS 10/19/2012 REAGAN MCNEILL MD Ot 278.00 OBESITY, NOS 10/19/2012 REAGAN MCNEILL MD Ot 401.9 HYPERTENSION NOS 10/19/2012 REAGAN MCNEILL MD Ot 414.01 CORONARY ATHEROSCLEROSIS OF INUPIAT CORON 10/19/2012 REAGAN MCNEILL MD Ot 416.2 [...] of Venous Thrombosis and Embolism 10/28/2012 ARIZA DO JOSE ALBERTO K 531.30 GASTRIC ULCER ACUTE [...] K 531.30 GASTRIC ULCER ACUTE 10/28/2012 ARIZA DO JOSE ALBERTO K 599.0 URINARY TRACT INFECTION [...] of Venous Thrombosis and Embolism 10/28/2012 VIVIENNE INTEGRATION SOFTWARE DEVELOPER, DONI S 531.30 GASTRIC ULCER ACUTE 10/28/2012 VIVIENNE INTEGRATION SOFTWARE DEVELOPER, DONI S 599.0 URINARY TRACT INFECTION 10/28/2012 VIVIENNE INTEGRATION SOFTWARE DEVELOPER, DONI S V12.51 Personal History of Venous Thrombosis and Embolism 10/28/2012 ARIZA DO, JOSE ALBERTO K 531.30 GASTRIC ULCER ACUTE 10/28/2012 ARIZA DO, JOSE ALBERTO K 599.0 URINARY TRACT INFECTION 10/28/2012 ARIZA DO, JOSE ALBERTO K V12.51 Personal History of Venous Thrombosis and Embolism 10/28/2012 AIRZA DO, JOSE ALBERTO K 531.30 GASTRIC ULCER [...] of Venous Thrombosis and Embolism 10/28/2012 VALENCIA INTEGRATION SOFTWARE DEVELOPER, CHERYL R 531.30 GASTRIC ULCER ACUTE 10/28/2012 VALENCIA INTEGRATION SOFTWARE DEVELOPER, CHERYL R 599.0 URINARY TRACT INFECTION 10/28/2012 VALENCIA INTEGRATION SOFTWARE DEVELOPER, CHERYL R V12.51 Personal History of Venous Thrombosis and Embolism 10/28/2012 CHARLES DOYLE PA-C 531.30 GASTRIC ULCER ACUTE 10/28/2012 CHARLES DOYLE PA-C M 599.0 URINARY TRACT INFECTION 10/28/2012 CHARLES DOYLE PA-C V12.51 Personal History of Venous Thrombosis and Embolism 10/28/2012 ARIZA DO, JOSE ALBERTO K 531.30 GASTRIC ULCER ACUTE 10/28/2012 ARIZA DO, JOSE ALBERTO K 599.0 URINARY TRACT INFECTION 10/28/2012 ARIZA DO, JOSE ALBERTO K V12.51 Personal History of Venous Thrombosis and Embolism 10/28/2012 VALENCIA INTEGRATION SOFTWARE DEVELOPER, CHERYL R 531.30 GASTRIC ULCER ACUTE 10/28/2012 VALENCIA INTEGRATION SOFTWARE DEVELOPER, CHERYL R 599.0 URINARY TRACT INFECTION 10/28/2012 VALENCIA INTEGRATION SOFTWARE DEVELOPER, CHERYL R V12.51 Personal History of Venous [...] ALBERTO K 599.0 URINARY TRACT INFECTION 10/28/2012 ANNITA MOYA JOSE ALBERTO K V12.51 Personal History of Venous Thrombosis and Embolism 10/28/2012 ANNITA MOYA JOSE ALBERTO K 531.30 GASTRIC ULCER ACUTE 10/28/2012 ARIZA DO JOSE ALBERTO K 599.0 URINARY TRACT INFECTION 10/28/2012 ANNITA MOYA JOSE ALBERTO K V12.51 Personal History of Venous Thrombosis and Embolism 10/28/2012 ANNITA MOYA JOSE ALBERTO K 531.30 GASTRIC ULCER ACUTE 10/28/2012 ARIZA DO JOSE ALBERTO K 599.0 URINARY TRACT INFECTION 10/28/2012 ANNITA MOYA JOSE ALBERTO K V12.51 Personal History of Venous Thrombosis and Embolism 10/28/2012 ARIZA DO JOSE ALBERTO K 531.30 GASTRIC ULCER ACUTE 10/28/2012 ARIZA DO JOSE ALBERTO K 599.0 URINARY TRACT INFECTION 10/28/2012 ANNITA MOYA JOSE ALBERTO K V12.51 Personal History of Venous Thrombosis and Embolism 10/28/2012 ANNITA MOYA JOSE ALBERTO K 531.30 GASTRIC ULCER ACUTE 10/28/2012 CHRISTOPHER [...] MD Ot 782.0 SKIN SENSATION DISTURB 11/28/2012 EWRNER HERNANDEZ MD Ot 784.0 HEADACHE 11/28/2012 WERNER HERNANDEZ MD Ot 788.30 UNSPECIFIED URINARY INCONTINENCE 11/28/2012 WERNER HERNANDEZ MD Ot V12.51 HX-VENOUS THROMBOSIS EMBOLISM 11/28/2012 WERNER HERNANDEZ MD Ot V17.1 FAMILY HX-STROKE 11/28/2012 WERNER HERNANDEZ MD Ot V46.2 SUPPLEMENTAL OXYGEN 11/28/2012 WERNER HERNANEDZ MD Ot V58.61 ANTICOAGULANTS,LT,CURRENT USE 11/28/2012 WERNER HERNANDEZ MD Ot V58.62 ENCOUNT FOR LONG-TERM(CURRENT) USE OF AN 11/28/2012 WERNER HERNANDEZ MD Ot V58.69 OTH MED,LT,CURRENT USE 12/16/2012 611.71 MASTODYNIA 12/16/2012 786.50 CHEST PAIN 12/16/2012 V76.10 BREAST CANCER SCREENING 12/16/2012 611.71 MASTODYNIA 12/16/2012 786.50 CHEST PAIN 12/16/2012 V76.10 BREAST CANCER SCREENING 12/16/2012 611.71 MASTODYNIA 12/16/2012 786.50 CHEST PAIN 12/16/2012 V76.10 BREAST CANCER SCREENING 12/16/2012 ARIZA DO, JOSE ALBERTO K 611.71 MASTODYNIA 12/16/2012 ARIZA DO JOSE ALBERTO K 786.50 CHEST PAIN 12/16/2012 [...] K V76.10 BREAST CANCER SCREENING 12/16/2012 VIVIENNE INTEGRATION SOFTWARE DEVELOPER, DONI S 611.71 MASTODYNIA 12/16/2012 VIVIENNE INTEGRATION SOFTWARE DEVELOPER, DONI S 786.50 CHEST PAIN 12/16/2012 VIVIENNE INTEGRATION SOFTWARE DEVELOPER, DONI S V76.10 BREAST CANCER SCREENING 12/16/2012 [...] JOSE ALBERTO K 786.50 CHEST PAIN 12/16/2012 RAIZA DO, JOSE ALBERTO K V76.10 BREAST CANCER SCREENING 12/16/2012 VALENCIA MAXN, CHERYL R 611.71 MASTODYNIA 12/16/2012 VALENCIA MAXN, CHERYL R 786.50 CHEST PAIN 12/16/2012 VALENCIA INTEGRATION SOFTWARE DEVELOPER, CHERYL R V76.10 BREAST CANCER SCREENING 12/16/2012 CHARLES DOYLE PA-C 611.71 MASTODYNIA 12/16/2012 CHARLES DOYLE PA-C 786.50 CHEST PAIN 12/16/2012 CHARLES DOYLE PA-C V76.10 BREAST CANCER SCREENING 12/16/2012 ARIZA DO, JOSE ALBERTO K 611.71 MASTODYNIA 12/16/2012 ARIZA DO, JOSE ALBERTO K 786.50 CHEST PAIN 12/16/2012 ARIZA DO, JOSE ALBERTO K V76.10 BREAST CANCER SCREENING 12/16/2012 VALENCIA INTEGRATION SOFTWARE DEVELOPER, CHERYL R 611.71 MASTODYNIA 12/16/2012 VALENCIA INTEGRATION SOFTWARE DEVELOPER, CHERYL R 786.50 CHEST PAIN 12/16/2012 VALENCIA MAXN, CHERYL R V76.10 BREAST CANCER SCREENING 12/16/2012 [...] JOSE ALBERTO K 239.3 BREAST MASS 12/26/2012 DONI PALAFOX APRN S 239.3 BREAST MASS 12/26/2012 ARIZA DO, JOSE ALBERTO K 239.3 BREAST MASS 12/26/2012 ARIZA DO, JOSE ALBERTO K 239.3 BREAST MASS 12/26/2012 ARIZA DO, JOSE ALBERTO K 239.3 BREAST MASS 12/26/2012 VALENCIA YORK, CHERYL R 239.3 BREAST MASS 12/26/2012 CHARLES DOYLE PA-C 239.3 BREAST MASS 12/26/2012 ARIZA DO, JOSE ALBERTO K 239.3 BREAST MASS 12/26/2012 VALENCIA MAXN CHERYL R 239.3 BREAST MASS 12/26/2012 ARIZA [...] JOSE ALBERTO K 850.9 CONCUSSION UNSPECIFIED 01/12/2013 VIVIENNE YORK, DONI S 850.9 CONCUSSION UNSPECIFIED 01/12/2013 ARIZA DO, JOSE ALBERTO K 850.9 CONCUSSION UNSPECIFIED 01/12/2013 ARIZA DO, JOSE ALBERTO K 850.9 CONCUSSION UNSPECIFIED 01/12/2013 ARIZA DO, JOSE ALBERTO K 850.9 CONCUSSION UNSPECIFIED 01/12/2013 VALENCIA INTEGRATION SOFTWARE DEVELOPER, CHERYL R 850.9 CONCUSSION UNSPECIFIED 01/12/2013 CHARLES DOYLE PA-C 850.9 CONCUSSION UNSPECIFIED 01/12/2013 ARIZA DO, JOSE ALBERTO K 850.9 CONCUSSION UNSPECIFIED 01/12/2013 VALENCIA INTEGRATION SOFTWARE DEVELOPER, CHERYL R 850.9 CONCUSSION UNSPECIFIED 01/12/2013 ARIZA [...] Ot E000.8 OTHER EXTERNAL CAUSE STATUS 01/12/2013 JESSICA NAM, CHARLES Shannon Ot E849.6 ACCIDENT IN PUBLIC BLDG 01/12/2013 JESSICA NAM, CHARLES Shannon Ot E885.9 FALL FROM SLIPPING, TRIPPING, OR STUMBLI 01/26/2013 JESSICA NAM, CHARLES Shannon Ot 368.8 VISUAL DISTURBANCES NEC 01/26/2013 JESSICA [...] AND OTHER NONSPECIFIC SKIN ERUPTION 02/10/2013 VIVIENNE INTEGRATION SOFTWARE DEVELOPER, DONI S 366.9 UNSPECIFIED CATARACT 02/10/2013 VIVIENNE INTEGRATION SOFTWARE DEVELOPER, DONI S 782.1 RASH AND OTHER NONSPECIFIC [...] AND OTHER NONSPECIFIC SKIN ERUPTION 02/10/2013 VALENCIA INTEGRATION SOFTWARE DEVELOPER, CHERYL R 366.9 UNSPECIFIED CATARACT 02/10/2013 VALENCIA INTEGRATION SOFTWARE DEVELOPER, CHERYL R 782.1 RASH AND OTHER NONSPECIFIC SKIN ERUPTION 02/10/2013 CHARLES DOYLE PA-C M 366.9 UNSPECIFIED CATARACT 02/10/2013 CHARLES DOYLE PA-C M 782.1 RASH AND OTHER NONSPECIFIC SKIN ERUPTION 02/10/2013 ARIZA DO, JOSE ALBERTO K 366.9 UNSPECIFIED CATARACT 02/10/2013 ARIZA DO, JOSE ALBERTO K 782.1 RASH AND OTHER NONSPECIFIC SKIN ERUPTION 02/10/2013 VALENCIA INTEGRATION SOFTWARE DEVELOPER, CHERYL R 366.9 UNSPECIFIED CATARACT 02/10/2013 VALENCIA INTEGRATION SOFTWARE DEVELOPER, CHERYL R 782.1 RASH AND OTHER NONSPECIFIC [...] OTHER NONSPECIFIC SKIN ERUPTION 02/27/2013 MICHELE COTTON L Ot 338.29 OTHER CHRONIC PAIN 02/27/2013 MICHELE [...] K 368.8 OTHER SPECIFIED VISUAL DISTURBANCES 03/15/2013 CHERYL BIRMINGHAM APRN R 368.8 OTHER SPECIFIED VISUAL DISTURBANCES 03/15/2013 CHARLES DOYLE PA-C 368.8 OTHER SPECIFIED VISUAL DISTURBANCES 03/15/2013 ARIZA DO, JOSE ALBERTO K 368.8 OTHER SPECIFIED VISUAL DISTURBANCES 03/15/2013 CHERYL BIRMINGHAM APRN R 368.8 OTHER SPECIFIED VISUAL DISTURBANCES 03/15/2013 [...] K 368.8 OTHER SPECIFIED VISUAL DISTURBANCES 03/15/2013 ARZIA DO, JOSE ALBERTO K 368.8 OTHER SPECIFIED [...] JOSE ALBERTO K 786.2 COUGH 05/18/2013 VALENCIA INTEGRATION SOFTWARE DEVELOPER, CHERYL R 786.2 COUGH 05/18/2013 CHARLES DOYLE PA-C 786.2 COUGH 05/18/2013 ARIZA DO, JOSE ALBERTO K 786.2 COUGH 05/18/2013 VALENCIA MAXN, CHERYL R 786.2 COUGH 05/18/2013 ARIZA DO, [...] ALBERTO K 486 PNEUMONIA UNSPECIFIED 05/19/2013 VALENCIA YORK, CHERYL R 486 PNEUMONIA UNSPECIFIED 05/19/2013 CHARLES DOYLE PA-C 486 PNEUMONIA UNSPECIFIED 05/19/2013 ARIZA DO, JOSE ALBERTO K 486 PNEUMONIA UNSPECIFIED 05/19/2013 VALENCIA YORK, CHERYL R 486 PNEUMONIA UNSPECIFIED 05/19/2013 ARIZA DO, JOSE ALBERTO K 486 PNEUMONIA UNSPECIFIED 05/19/2013 ARIZA DO, JOSE ALBERTO K 486 PNEUMONIA UNSPECIFIED 05/19/2013 ARZIA DO, JOSE ALBERTO K 486 PNEUMONIA UNSPECIFIED 05/19/2013 ARIZA DO, JOSE ALBERTO K 486 PNEUMONIA UNSPECIFIED 05/19/2013 RAIZA DO, JOSE ALBERTO K 486 PNEUMONIA UNSPECIFIED 05/19/2013 ARIAZ DO, JOSE ALBERTO K 486 PNEUMONIA UNSPECIFIED 05/19/2013 ARIZA DO, JOSE ALBERTO K 486 PNEUMONIA UNSPECIFIED 05/19/2013 ARIZA DO, JOSE ALBERTO K 486 PNEUMONIA UNSPECIFIED 05/19/2013 ARIZA DO, JOSE ALBERTO K 486 PNEUMONIA UNSPECIFIED 05/19/2013 ARIZA DO, JOSE ALBERTO K 486 PNEUMONIA UNSPECIFIED 06/14/2013 VALENCIA YORK, CHERYL R 599.70 HEMATURIA 06/14/2013 VIVEK DUMONT, CHARLES Santos 599.70 HEMATURIA 06/14/2013 ARIZA DO, JOSE ALBERTO K 599.70 HEMATURIA 06/14/2013 VALENCIA YORK, CHERYL R 599.70 HEMATURIA 06/14/2013 ARIZA DO, [...] K 780.57 UNSPECIFIED SLEEP APNEA 07/08/2013 VALENCIA YORK, CHERYL R 780.57 UNSPECIFIED SLEEP APNEA 07/08/2013 [...] K 780.57 UNSPECIFIED SLEEP APNEA 07/14/2013 VALENCIA INTEGRATION SOFTWARE DEVELOPER, CHERYL R 719.47 PAIN IN JOINT INVOLVING ANKLE AND FOOT 07/14/2013 VALENCIA INTEGRATION SOFTWARE DEVELOPER, CHERYL R 729.5 PAIN IN LIMB 07/14/2013 [...] JOINT INVOLVING ANKLE AND FOOT 07/14/2013 ARIZA DOCHRISTOPHERA K 729.5 PAIN IN LIMB 07/14/2013 ARIZA CHRISTOPHER MOYAA K 719.47 PAIN IN JOINT INVOLVING ANKLE AND FOOT 07/14/2013 CHRISTOPHER ARIZA DOA K 729.5 PAIN IN LIMB 07/15/2013 SHALOM RAMÍREZ APRN Ot 845.00 SPRAIN OF ANKLE NOS 07/15/2013 SHALOM RAMÍREZ APRN Ot 959.7 LOWER LEG INJURY NOS 07/15/2013 SHALOM RAMÍREZ APRN Ot E000.8 OTHER EXTERNAL CAUSE STATUS 07/15/2013 SHALOM RAMÍREZ APRN Ot E849.6 ACCIDENT IN PUBLIC BLDG 07/15/2013 [...] MCNEILL MD Ot 414.01 CORONARY ATHEROSCLEROSIS OF INUPIAT CORON 08/17/2013 REAGAN MCNEILL MD Ot 496 [...] MCNEILL MD Ot 414.01 CORONARY ATHEROSCLEROSIS OF INUPIAT CORON 10/01/2013 REAGAN MCNEILL MD Ot 496 CHR AIRWAY OBSTRUCT NEC 10/01/2013 REAGAN MCNEILL MD Ot 786.59 CHEST PAIN NEC 10/01/2013 REAGAN MCNEILL MD Ot 794.30 ABN CARDIOVASC STUDY NOS 10/01/2013 REAGAN MCNEILL MD Ot V12.51 HX-VENOUS THROMBOSIS EMBOLISM 10/01/2013 REAGAN MCNEILL MD Ot V58.61 ANTICOAGULANTS,LT,CURRENT USE 10/01/2013 REAGAN MCNEILL MD Ot V58.69 OTH MED,LT,CURRENT USE 10/01/2013 REAGAN [...] APRN Ot 338.29 OTHER CHRONIC PAIN 12/05/2013 RAMÍREZ, PETER J INTEGRATION SOFTWARE DEVELOPER Ot 493.90 ASTHMA, UNSPECIFIED 12/05/2013 SHALOM RAMÍREZ INTEGRATION SOFTWARE DEVELOPER Ot 599.0 URIN TRACT INFECTION NOS 12/05/2013 SHALOM RAMÍREZ INTEGRATION SOFTWARE DEVELOPER Ot 716.90 ARTHROPATHY NOS-UNSPEC 12/05/2013 SHALOM RAMÍREZ INTEGRATION SOFTWARE DEVELOPER Ot 724.2 LUMBAGO 12/05/2013 SHALOM RAMÍREZ INTEGRATION SOFTWARE DEVELOPER Ot 724.5 BACKACHE NOS 12/05/2013 SHALOM RAMÍREZ INTEGRATION SOFTWARE DEVELOPER Ot 780.57 UNSPECIFIED SLEEP APNEA 12/05/2013 SHALOM RAMÍREZ INTEGRATION SOFTWARE DEVELOPER Ot V46.2 SUPPLEMENTAL OXYGEN 12/05/2013 SHALOM RAMÍREZ INTEGRATION SOFTWARE DEVELOPER Ot V85.36 BODY MASS INDEX 36.0-36.9, ADULT [...] V85.43 BODY MASS INDEX 50.0-59.9, ADULT 12/16/2013 ARIAZ DO, JOSE ALBERTO K 218.9 LEIOMYOMA OF [...] JOSE ALBERTO K 788.1 DYSURIA 01/13/2014 BESSY DO NORIS K Ot 244.9 HYPOTHYROIDISM NOS 01/13/2014 BESSY DO NORIS K Ot 530.81 ESOPHAGEAL REFLUX 01/13/2014 BESSY DO, NORIS K Ot 786.50 CHEST PAIN NOS 01/13/2014 BESSY DO NORIS K Ot 787.02 NAUSEA ALONE 01/13/2014 BESYS DO NORIS K Ot V58.69 OTH MED,LT,CURRENT USE 01/16/2014 JOSE ALBERTO ARIZA DO 530.81 GERD [...] 278.01 MORBID OBESITY 02/02/2014 CHAS RODARTE DO Ot 625.9 FEM GENITAL SYMPTOMS NOS 02/02/2014 [...] 04/22/2014 Ot 780.4 04/22/2014 Ot V81.5 04/22/2014 VIVEK CALABRESE CHARLES M Ot 611.71 04/22/2014 VIVEK PA, CHARLES M Ot 610.3 04/22/2014 GARETT NAM, ACE Z Ot V58.61 04/22/2014 GARETT NAM, ACE Z Ot V58.83 04/22/2014 VIVEK PA, CHARLES M Ot 397.0 04/22/2014 DOYLE PA, CHARLES M Ot 424.0 04/22/2014 DOYLE PA, CHARLES M Ot 786.05 04/22/2014 DOYLE PA, CHARLES M Ot V58.61 04/22/2014 VIVEK PA, CHARLES M Ot 486 04/22/2014 MICHAEL PA, MICHAEL Resendiz Ot 278.1 04/22/2014 MICHAEL PA, MICHAEL Resendiz Ot 414.00 04/22/2014 MICHAEL PA, MICHAEL Resendiz Ot 496 04/22/2014 MICHAEL PA, MICHAEL Resendiz Ot 786.09 04/22/2014 MICHAEL PA, MICHAEL Resendiz Ot 786.50 04/22/2014 FENECH DO, CHAS S Ot 218.9 04/22/2014 FENECH DO, CHAS S Ot 625.9 04/22/2014 FENECH DO, CHAS S Ot 626.8 04/22/2014 FENECH DO, CHAS S Ot 627.1 04/22/2014 FENECH DO, CHAS S Ot V72.84 04/22/2014 [facility] V74.8 05/25/2014 Ot 242.90 05/25/2014 Ot [...] VIVEK PA, CHARLES M Ot 611.71 05/25/2014 DOYLE PA, CHARLES M Ot 610.3 05/25/2014 GARETT NAM, ACE Z Ot V58.61 05/25/2014 GARETT NAM, ACE Z Ot V58.83 05/25/2014 VIVEK PA, CHARLES M Ot 397.0 05/25/2014 VIVEK PA, CHARLES M Ot 424.0 05/25/2014 VIVEK PA, CHARLES M Ot 786.05 05/25/2014 VIVEK PA, CHARLES M Ot V58.61 05/25/2014 VIVEK PA, CHARLES M Ot 486 05/25/2014 MICHAEL PA, MICHAEL Resendiz Ot 278.1 05/25/2014 MICHAEL PA, MICHAEL K Ot 414.00 05/25/2014 MICHAEL PA, MICHAEL K Ot 496 05/25/2014 MICHAEL PA, MICHAEL K Ot 786.09 05/25/2014 MICHAEL PA, MICHAEL K Ot 786.50 05/25/2014 FENALEX DO, CHAS S Ot 218.9 05/25/2014 [facility] Ot 625.9 05/25/2014 FENECH DO, CHAS S Ot 626.8 05/25/2014 FENECH DO, CHAS S Ot 627.1 05/25/2014 FENECH DO, CHAS S Ot V72.84 05/25/2014 FENECH DO, CHAS S Ot V74.8 05/26/2014 ARIZA DOJOSE ALBERTO 784.7 EPISTAXIS 05/26/2014 ARIZA DOJOSE ALBERTO 784.7 EPISTAXIS 06/07/2014 NORIS DOHERTY DO Ot 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 06/07/2014 NORIS DOHERTY DO Ot 571.8 CHRONIC LIVER DIS NEC 06/07/2014 NORIS DOHERTY DO Ot 789.00 ABDOMINAL PAIN, UNSPECIFIED SITE 06/19/2014 CHAS RODARTE DO Ot 789.03 06/21/2014 NORIS DOHERTY DO Ot 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 06/21/2014 NORIS DOHERTY DO Ot 623.8 NONINFLAM DIS VAGINA NEC 06/21/2014 NORIS DOHERTY DO Ot V25.42 IUD SURVEILLANCE 06/23/2014 JESSICA NAM, CHARLES Shannon Ot 627.1 POSTMENOPAUSAL BLEEDING 06/23/2014 JESSICA NAM, CHARLES Shannon Ot 787.02 NAUSEA ALONE 06/23/2014 CHARLES LOPEZ MD Ot 789.01 ABDOMINAL PAIN, RIGHT UPPER QUADRANT 07/14/2014 JOSE ALBERTO ARIZA DO 461.9 SINUSITIS ACUTE 07/14/2014 JOSE ALBERTO ARIZA DO K 466.0 BRONCHITIS, ACUTE 07/17/2014 JOSE ALBERTO ARIZA DO 786.2 COUGH 09/06/2014 CHARLES FREED Ot 729.5 09/06/2014 MICHELE COTTON Ot 715.36 LOC OSTEOARTH NOS-L/LEG 09/06/2014 MICHELE COTTON Ot 719.46 JOINT PAIN-L/LEG 09/29/2014 SHALOM RAMÍREZ INTEGRATION SOFTWARE DEVELOPER Ot 789.00 ABDOMINAL PAIN, UNSPECIFIED SITE 10/01/2014 MICHELE COTTON Ot 682.4 CELLULITIS OF HAND 10/01/2014 MICHELE COTTON Ot 729.81 SWELLING OF LIMB 10/01/2014 MICHELE COTTON Ot 882.1 OPN WOUND HAND-COMPLICAT 10/01/2014 MICHELE COTTON Ot E000.8 OTHER EXTERNAL CAUSE STATUS 10/01/2014 MICHELE COTTON Ot E849.0 ACCIDENT IN HOME 10/01/2014 MICHELE COTTON Ot E906.3 ANIMAL BITE NEC 11/08/2014 SHALOM RAMÍREZ INTEGRATION SOFTWARE DEVELOPER Ot 789.00 ABDOMINAL PAIN, UNSPECIFIED SITE 12/06/2014 [...] 01/02/2015 Ot 780.4 01/02/2015 Ot V81.5 01/02/2015 VIVEK PA, CHARLES M Ot 611.71 01/02/2015 VIVEK PA, CHARLES M Ot 610.3 01/02/2015 GARETT NAM, ACE Z Ot V58.61 01/02/2015 GARETT NAM, ACE Z Ot V58.83 01/02/2015 VIVEK PA, CHARLES M Ot 397.0 01/02/2015 VIVEK PA, CHARLES M Ot 424.0 01/02/2015 VIVEK PA, CHARLES M Ot 786.05 01/02/2015 VIVEK PA, CHARLES M Ot V58.61 01/02/2015 VIVEK PA, CHARLES M Ot 486 01/02/2015 MICHAEL PA, MICHAEL Resendiz Ot 278.1 01/02/2015 MICHAEL PA, MICHAEL Resendiz Ot 414.00 01/02/2015 MICHAEL PA, MICHAEL Resendiz Ot 496 01/02/2015 MICHAEL PA, MICHAEL Resendiz Ot 786.09 01/02/2015 MICHAEL PA, MICHAEL Resendiz Ot 786.50 01/02/2015 FENECH DO, CHAS S Ot 218.9 01/02/2015 FENECH DO, CHAS S Ot 625.9 01/02/2015 FENECH DO, CHAS S Ot 626.8 01/02/2015 CHAS RODARTE DO Ot 627.1 01/02/2015 CHAS RODARTE DO Ot V72.84 01/02/2015 CHAS RODARTE DO Ot V74.8 01/02/2015 CHAS RODARTE DO Ot 789.03 01/02/2015 CHARLES FREED Ot 729.5 01/02/2015 CATERINA SHAH DO Ot 278.1 01/02/2015 CATERINA SHAH DO Ot 493.90 01/02/2015 CATERINA SHAH DO Ot 786.09 01/02/2015 BALDEV LITTLEJOHN DO Ot [...] M Ot 486 01/17/2015 MICHAEL PA, MICHAEL Resendiz Ot 278.1 01/17/2015 MICHAEL PA, MICHAEL Resendiz Ot 414.00 01/17/2015 MICHAEL PA, MICHAEL K Ot 496 01/17/2015 MICHAEL PA, MICHAEL K Ot 786.09 01/17/2015 MICHAEL PA, MICHAEL Resendiz Ot 786.50 01/17/2015 CHASTITYECH DO, CHAS S Ot 218.9 01/17/2015 FENECH [...] 01/17/2015 BALDEV LITTLEJOHN DO Ot V72.84 01/17/2015 CAYDEN DOCHAS S Ot 218.9 01/30/2015 FENALEX DO, CHAS S Ot 218.9 02/07/2015 FENECH DO, CHAS S Ot 621.32 02/07/2015 FENECH DO, CHAS S Ot V25.42 02/13/2015 FENECH DO, CHAS S Ot 218.9 02/21/2015 FENECH DOCHAS S Ot 621.32 02/21/2015 FENECH DO, CHAS S Ot V25.42 03/21/2015 Ot 780.2 03/21/2015 Ot 626.8 03/21/2015 Ot V72.63 03/21/2015 Ot V74.8 03/21/2015 Ot 574.20 03/21/2015 Ot V72.83 03/21/2015 Ot V74.8 03/21/2015 Ot 723.1 03/21/2015 Ot V45.4 03/21/2015 Ot 723.0 03/21/2015 Ot V64.3 03/21/2015 Ot 723.1 03/21/2015 Ot 780.4 03/21/2015 Ot 368.9 03/21/2015 Ot 723.1 03/21/2015 Ot 780.4 03/21/2015 Ot V81.5 03/21/2015 CHARLES FREED Ot 611.71 03/21/2015 CHARLES FREED Ot 610.3 03/21/2015 GARETT NAM, ACE Z Ot V58.61 03/21/2015 GARETT NAM, ACE Z Ot V58.83 03/21/2015 CHARLES FREED Ot 397.0 03/21/2015 CHARLES FREED Ot 424.0 03/21/2015 CHARLES FREED Ot 786.05 03/21/2015 CHRALES FREED Ot V58.61 03/21/2015 CHARLES FREED Ot 486 03/21/2015 MICHAEL WAGNER Ot 278.1 03/21/2015 MICHAEL CALABRESE, MICHAEL Resendiz Ot 414.00 03/21/2015 MICHAEL CALABRESE, MICHAEL Resendiz Ot 496 03/21/2015 MICHAEL CALABRESE, MICHAEL Resendiz Ot 786.09 03/21/2015 MICHAEL WAGNER Ot 786.50 03/21/2015 FENALEX DO, CHAS Patel Ot 218.9 03/21/2015 FENECH DO, CHAS Patel Ot 625.9 03/21/2015 FENECH DO, CHAS Patel Ot 626.8 03/21/2015 FENECH DO, CHAS Patel Ot 627.1 03/21/2015 FENECH DO, CHAS Patel Ot V72.84 03/21/2015 FENECH DO, CHAS Patel Ot V74.8 03/21/2015 FENECH DO, CHAS Patel Ot 789.03 03/21/2015 CHARLES FREED Ot 729.5 03/21/2015 CATERINA SHAH DO Ot 278.1 03/21/2015 CATERINA SHAH DO Ot 493.90 03/21/2015 CATERINA SHAH DO Ot 786.09 03/21/2015 BALDEV LITTLEJOHN DO Ot 569.3 03/21/2015 BALDEV LITTLEJOHN DO Ot V72.84 03/21/2015 FENALEX MOYA, CHAS Patel Ot 218.9 03/21/2015 FENALEX MOYA, CHAS Patel Ot 621.32 03/21/2015 CAYDEN MOYA CHAS Patel Ot V25.42 03/23/2015 CAYDEN MOYA CHAS Patel Ot R10.2 03/27/2015 [facility] CHAS Patel Ot R10.2 04/14/2015 DEWEY PURDY MD Ot E66.01 MORBID (SEVERE) OBESITY DUE TO EXCESS CA 04/14/2015 DEWEY PURDY MD Ot M10.9 GOUT, UNSPECIFIED 04/14/2015 DEWEY PURDY MD Ot M19.072 PRIMARY OSTEOARTHRITIS, LEFT ANKLE AND F 04/14/2015 DEWEY PURDY MD Ot M77.32 CALCANEAL SPUR, LEFT FOOT 04/14/2015 DEWEY PURDY MD Ot 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 04/18/2015 BALDEV LITTLEJOHN DO Ot K63.5 POLYP OF COLON 04/20/2015 CAYDEN MOYA CHAS Patel Ot D25.0 SUBMUCOUS LEIOMYOMA OF UTERUS 04/20/2015 CAYDEN MOYA CHAS S Ot D25.2 SUBSEROSAL LEIOMYOMA OF UTERUS 04/20/2015 CAYDEN MOYA CHAS S Ot E66.01 MORBID (SEVERE) OBESITY DUE TO EXCESS CA 04/20/2015 CAYDEN MOYA CHAS Patel Ot J44.9 CHRONIC OBSTRUCTIVE PULMONARY DISEASE, U 04/20/2015 CAYDEN MOYA CHAS S Ot N80.0 ENDOMETRIOSIS OF UTERUS 04/20/2015 CAYDEN MOYA CHAS S Ot N83.8 OTH NONINFLAMMATORY DISORD OF OVARY, FAL 04/20/2015 CAYDEN MOYA CHAS S Ot 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 04/20/2015 CAYDEN MOYA CHAS S Ot Z68.43 BODY MASS INDEX (BMI) 50-59.9 , ADULT 04/21/2015 JESSICA NAM, CHARLES Shannon Ot E66.01 MORBID (SEVERE) OBESITY DUE TO EXCESS CA 04/21/2015 JESSICA NAM, CHARLES Shannon Ot T81.4XXA INFECTION FOLLOWING A PROCEDURE, INITIAL 04/21/2015 JESSICA NAM, CHARLES Shannon Ot 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 04/21/2015 JESSICA NAM, CHARLES Shannon Ot Z79.899 OTHER RESIDENTIAL (CURRENT) DRUG THERAPY 04/21/2015 JESSICA NAM, CHARLES Shannon Ot Z90.710 ACQUIRED ABSENCE OF BOTH CERVIX AND UTER 05/02/2015 CAYDEN MOYA CHAS S Ot D25.9 05/02/2015 CAYDEN MOYA CHAS S Ot Z01.812 05/02/2015 CAYDEN MOYA CHAS S Ot Z11.2 05/02/2015 CHEN INFANTE APRN Ot J06.9 05/10/2015 CAYDEN MOYA CHAS S Ot D25.9 05/10/2015 CAYDEN MOYA CHAS S Ot Z01.812 05/10/2015 CAYDEN MOYA CHAS S Ot Z11.2 05/10/2015 CHEN INFANTE APRN Ot J06.9 05/15/2015 NORIS DOHERTY DO Ot E66.01 MORBID (SEVERE) OBESITY DUE TO EXCESS CA 05/15/2015 NORIS DOHERTY DO Ot K63.89 OTHER SPECIFIED DISEASES OF INTESTINE 05/15/2015 NORIS DOHERTY DO Ot N39.0 URINARY TRACT INFECTION, SITE NOT SPECIF 05/15/2015 NORIS DOHERTY DO Ot 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 05/15/2015 NORIS DOHERTY DO Ot Z90.710 ACQUIRED ABSENCE OF BOTH CERVIX AND UTER 05/31/2015 BALDEV LITTLEJOHN DO Ot R10.2 06/08/2015 LITTLEJOHN BALDEV Abhay Ot R10.2 06/12/2015 TONY MIGDALIA Abhay Ot D37.4 06/12/2015 TONY MOYA MIGDALIA D Ot E03.9 06/12/2015 MIGDALIA JIMENEZ DO Ot Z86.010 06/21/2015 MICHELE COTTON Ot E66.9 OBESITY, UNSPECIFIED 06/21/2015 MICHELE COTTON Ot I51.7 CARDIOMEGALY 06/21/2015 MICHELE COTTON Ot J44.9 CHRONIC OBSTRUCTIVE PULMONARY DISEASE, U 06/21/2015 MICHELE COTTON Ot K76.0 FATTY (CHANGE OF) LIVER, NOT ELSEWHERE C 06/21/2015 MICHELE COTTON Ot R91.8 OTHER NONSPECIFIC ABNORMAL FINDING OF GUS 06/21/2015 MIHCELE COTTON Ot Z79.01 RESIDENTIAL (CURRENT) USE OF ANTICOAGULANT 06/21/2015 MICHELE COTTON Ot Z86.711 PERSONAL HISTORY OF PULMONARY EMBOLISM 06/22/2015 MIGDALIA JIMENEZ DO Ot D37.4 06/22/2015 MIGDALIA JIMENEZ DO Ot E03.9 06/22/2015 MIGDALIA JIMENEZ DO Ot Z86.010 08/10/2015 Ot E66.01 MORBID (SEVERE) OBESITY DUE TO EXCESS CA 08/10/2015 Ot I10 ESSENTIAL (PRIMARY) HYPERTENSION 08/10/2015 Ot 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 08/10/2015 Ot I51.7 CARDIOMEGALY 08/10/2015 Ot J44.9 CHRONIC OBSTRUCTIVE PULMONARY DISEASE, U 08/10/2015 Ot R55 SYNCOPE AND COLLAPSE 08/10/2015 Ot S09.90XA UNSPECIFIED INJURY OF HEAD, INITIAL ENCO 08/10/2015 Ot W01.0XXA FALL SAME LEV FROM SLIP/TRIP W/O STRIKE 08/10/[address] [facility] 08/10/2015 Ot Y99.8 OTHER EXTERNAL CAUSE STATUS 08/10/2015 Ot Z85.3 PERSONAL HISTORY OF MALIGNANT NEOPLASM O 08/10/2015 Ot Z86.718 PERSONAL HISTORY OF OTHER VENOUS THROMBO 08/10/2015 Ot Z98.1 ARTHRODESIS STATUS 09/04/2015 SHALOM RAMÍREZ APRN Ot E66.9 OBESITY, UNSPECIFIED 09/04/2015 SHALOM RAMÍREZ APRN Ot I10 ESSENTIAL (PRIMARY) HYPERTENSION 09/04/2015 SHALOM [...] Ot E78.2 MIXED HYPERLIPIDEMIA 09/06/2015 REAGAN MCNEILL MD, Ot E78.5 HYPERLIPIDEMIA, UNSPECIFIED 09/06/2015 REAGAN MCNEILL MD Ot I10 ESSENTIAL (PRIMARY) HYPERTENSION 09/06/2015 REAGAN MCNEILL MD Ot 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 09/06/2015 REAGAN MCNEILL MD Ot J44.9 [...] ADULT 09/06/2015 REAGAN MCNEILL MD Ot Z79.01 RESIDENTIAL (CURRENT) USE OF ANTICOAGULANT 09/06/2015 REAGAN MCNEILL MD Ot Z79.899 OTHER RESIDENTIAL (CURRENT) DRUG THERAPY 09/06/2015 REAGAN MCNEILL MD Ot Z86.711 PERSONAL HISTORY OF PULMONARY EMBOLISM 09/06/2015 REAGAN MCNEILL MD Ot E78.2 MIXED HYPERLIPIDEMIA 09/06/2015 REAGAN MCNEILL MD Ot I10 ESSENTIAL (PRIMARY) HYPERTENSION 09/06/2015 REAGAN MCNEILL MD Ot 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 09/06/2015 REAGAN MCNEILL MD Ot R55 SYNCOPE AND COLLAPSE 09/06/2015 REAGAN MCNEILL MD Ot Z01.810 ENCOUNTER FOR PREPROCEDURAL CARDIOVASCUL 09/06/2015 REAGAN MCNEILL MD Ot Z01.811 ENCOUNTER FOR PREPROCEDURAL RESPIRATORY 09/06/2015 REAGAN MCNEILL MD Ot Z01.812 ENCOUNTER FOR PREPROCEDURAL LABORATORY E 09/06/2015 REAGAN CMNEILL MD Ot Z11.2 ENCOUNTER FOR SCREENING FOR OTHER BACTER 09/11/2015 REAGAN MCNEILL MD Ot E78.2 MIXED HYPERLIPIDEMIA 09/11/2015 REAGAN MCNEILL MD Ot I10 ESSENTIAL (PRIMARY) HYPERTENSION 09/11/2015 REAGAN MCNEILL MD Ot 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 09/11/2015 REAGAN MCNEILL MD Ot R55 [...] MD Ot 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 09/13/2015 REAGAN MCNEILL MD Ot J44.9 CHRONIC OBSTRUCTIVE PULMONARY DISEASE, U 09/13/2015 REAGAN MCNEILL MD Ot R55 SYNCOPE AND COLLAPSE 09/13/2015 REAGAN MCNEILL MD Ot R94.39 ABNORMAL RESULT OF OTHER CARDIOVASCULAR 09/13/2015 REAGAN MCNEILL MD Ot Z68.43 BODY MASS INDEX (BMI) 50-59.9 , ADULT 09/13/2015 REAGAN MCNEILL MD Ot Z79.01 RESIDENTIAL (CURRENT) USE OF ANTICOAGULANT 09/13/2015 REAGAN MCNEILL MD Ot Z79.899 OTHER RESIDENTIAL (CURRENT) DRUG THERAPY 09/13/2015 REAGAN MCNEILL MD [...] MD Ot 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 10/04/2015 REAGAN MCNEILL MD Ot J44.9 CHRONIC OBSTRUCTIVE PULMONARY DISEASE, U 10/04/2015 REAGAN MCNEILL MD Ot R55 SYNCOPE AND COLLAPSE 10/04/2015 REAGAN MCNEILL MD Ot R94.39 ABNORMAL RESULT OF OTHER CARDIOVASCULAR 10/04/2015 REAGAN MCNEILL MD Ot Z68.43 BODY MASS INDEX (BMI) 50-59.9 , ADULT 10/04/2015 REAGAN MCNEILL MD, Ot 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 10/04/2015 REAGAN MCNEILL MD Ot Z79.899 OTHER RESIDENTIAL (CURRENT) DRUG THERAPY 10/04/2015 REAGAN MCNEILL MD, Ot Z86.711 PERSONAL HISTORY OF PULMONARY EMBOLISM 02/15/2016 Ot 626.8 MENSTRUAL DISORDER NEC 02/15/2016 Ot V72.63 PRE-PROCEDURAL LABORATORY EXAMINATION 02/15/2016 Ot V74.8 SCREEN-BACTERIAL DIS NEC 02/15/2016 Ot 574.20 CHOLELITHIASIS NOS 02/15/2016 Ot V72.83 EXAM PRE-OPERATIVE NEC 02/15/2016 Ot V74.8 SCREEN-BACTERIAL DIS NEC 02/15/2016 Ot 723.1 CERVICALGIA 02/15/2016 [...] FREED Ot 610.3 FIBROSCLEROSIS OF BREAST 02/15/2016 GARETT NAM, ACE Z Ot V58.61 ANTICOAGULANTS,LT,CURRENT USE 02/15/2016 GARETT NAM, ACE Z Ot V58.83 ENCOUNTER [...] LEIOMYOMA NOS 02/15/2016 CHAS RODARTE DO Ot 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 ENDOMETRIAL HYPERPLASIA WITHOUT 02/15/2016 CAYDEN MOYA CHAS Patel Ot V25.42 IUD SURVEILLANCE 02/15/2016 CAYDEN MOYA CHAS Patel Ot R10.2 PELVIC AND PERINEAL PAIN 02/15/2016 BALDEV LITTLEJOHN DO Ot R10.2 PELVIC AND PERINEAL PAIN 02/15/2016 LITTLEJOHNBALDEV ARMAS DO Ot R10.10 UPPER ABDOMINAL PAIN, UNSPECIFIED 02/15/2016 LITTLEJOHNBALDEV ARMAS DO Ot Z01.818 ENCOUNTER FOR OTHER PREPROCEDURAL EXAMIN 02/15/2016 CAYDEN MOYA CHAS Patel Ot D25.9 LEIOMYOMA OF UTERUS, UNSPECIFIED 02/15/2016 CAYDEN MOYA CHAS Amanda Ot Z01.812 ENCOUNTER FOR PREPROCEDURAL LABORATORY E 02/15/2016 CAYDEN MOYACHAS Ot Z11.2 ENCOUNTER FOR SCREENING FOR OTHER BACTER 02/15/2016 CHEN INFANTE APRN Ot J06.9 ACUTE UPPER RESPIRATORY INFECTION, UNSPE 02/15/2016 MIGDALIA JIMENEZ DO Ot 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 02/15/2016 MIGDALIA JIMENEZ DO Ot E03.9 HYPOTHYROIDISM, UNSPECIFIED 02/15/2016 MIGDALIA JIMENEZ DO Ot Z86.010 PERSONAL HISTORY OF COLONIC POLYPS 02/16/2016 SHALOM RAMÍREZ APRN Ot 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 02/16/2016 SHALOM RAMÍREZ APRN Ot R07.9 CHEST PAIN, UNSPECIFIED 02/16/2016 SHALOM RAMÍREZ APRN Ot 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 02/16/2016 SHALOM RAMÍREZ APRN Ot Z79.899 OTHER RESIDENTIAL (CURRENT) DRUG THERAPY 02/16/2016 SHALOM RAMÍREZ APRN Ot Z86.711 PERSONAL HISTORY OF PULMONARY EMBOLISM 02/18/2016 SHALOM RAMÍREZ APRN Ot 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 02/18/2016 SHALOM RAMÍREZ APRN Ot R07.9 CHEST PAIN, UNSPECIFIED 02/18/2016 SHALOM RAMÍREZ INTEGRATION SOFTWARE DEVELOPER Ot Z79.01 RESIDENTIAL (CURRENT) USE OF ANTICOAGULANT 02/18/2016 SHALOM RAMÍREZ INTEGRATION SOFTWARE DEVELOPER Ot 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 02/18/2016 SHALOM RAMÍREZ INTEGRATION SOFTWARE DEVELOPER Ot Z86.711 PERSONAL HISTORY OF PULMONARY EMBOLISM 02/22/2016 HSALOM RAMÍREZ INTEGRATION SOFTWARE DEVELOPER Ot 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 02/22/2016 SHALOM RAMÍREZ INTEGRATION SOFTWARE DEVELOPER Ot R07.9 CHEST PAIN, UNSPECIFIED 02/22/2016 SHALOM RAMÍREZ INTEGRATION SOFTWARE DEVELOPER Ot Z79.01 RESIDENTIAL (CURRENT) USE OF ANTICOAGULANT 02/22/2016 SHALOM RAMÍREZ APRN Ot 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 02/22/2016 SHALOM RAMÍREZ APRN Ot Z86.711 PERSONAL HISTORY OF PULMONARY EMBOLISM 07/18/2016 KAVYA PATRICK INTEGRATION SOFTWARE DEVELOPER Ot E66.01 MORBID (SEVERE) OBESITY DUE TO EXCESS CA 07/18/2016 KAVYA PATRICK INTEGRATION SOFTWARE DEVELOPER Ot R10.84 GENERALIZED ABDOMINAL PAIN 07/18/2016 KAVYA PATRICK INTEGRATION SOFTWARE DEVELOPER Ot Z68.43 BODY MASS INDEX (BMI) 50-59.9 , ADULT 08/07/2016 KAVYA PATRICK INTEGRATION SOFTWARE DEVELOPER Ot E66.01 MORBID (SEVERE) OBESITY DUE TO EXCESS CA 08/07/2016 KAVYA PATRICK INTEGRATION SOFTWARE DEVELOPER Ot R10.84 GENERALIZED ABDOMINAL PAIN 08/07/2016 KAVYA PATRICK INTEGRATION SOFTWARE DEVELOPER Ot Z68.43 BODY MASS INDEX (BMI) 50-59.9 , ADULT 08/15/2016 KAVYA PATRICK INTEGRATION SOFTWARE DEVELOPER Ot E66.01 MORBID (SEVERE) OBESITY DUE TO EXCESS CA 08/15/2016 KAVYA PATRICK INTEGRATION SOFTWARE DEVELOPER Ot R10.84 GENERALIZED ABDOMINAL PAIN 08/15/2016 KAVYA PATRICK INTEGRATION SOFTWARE DEVELOPER Ot Z68.43 BODY MASS INDEX (BMI) 50-59.9 , ADULT 09/04/2016 MIRIAM SPENCERP Ot E66.01 MORBID (SEVERE) OBESITY DUE TO EXCESS CA 09/04/2016 MIRIAM SPENCER Ot I10 ESSENTIAL (PRIMARY) HYPERTENSION 09/04/2016 MIRIAM SPENCER Ot 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 09/04/2016 MIRIAM SPENCER Ot M17.11 UNILATERAL PRIMARY OSTEOARTHRITIS, RIGHT 09/04/2016 MIRIAM SPENCERP Ot 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 09/04/2016 TJMIRIAM YusufP Ot S63.501A UNSPECIFIED SPRAIN OF RIGHT WRIST, INITI 09/04/2016 TJMIRIAM YusufP Ot S69.91XA UNSP INJURY OF RIGHT WRIST, HAND AND FIN 09/04/2016 MIRIAM SPENCERP Ot S89.91XA UNSPECIFIED INJURY OF RIGHT LOWER LEG, I 09/04/2016 MIRIAM SPENCERP Ot W05.0XXA FALL FROM NON-MOVING WHEELCHAIR, INITIAL 09/04/2016 MIRIAM SPENCER Ot Y99.8 OTHER EXTERNAL CAUSE STATUS 09/04/2016 MIRIAM SPENCER Ot Z79.899 OTHER RESIDENTIAL (CURRENT) DRUG THERAPY 09/04/2016 MIRIAM SPENCER Ot Z86.718 PERSONAL HISTORY OF OTHER VENOUS THROMBO 09/30/2016 REAGAN MCNEILL MD Ot Z51.81 ENCOUNTER FOR THERAPEUTIC DRUG LEVEL MON 09/30/2016 REAGAN MCNEILL MD Ot Z79.01 RESIDENTIAL (CURRENT) USE OF ANTICOAGULANT 09/30/2016 REAGAN MCNEILL MD Ot Z86.711 PERSONAL HISTORY OF PULMONARY EMBOLISM 10/14/2016 MIRIAM SPENCER Ot E66.01 MORBID (SEVERE) OBESITY DUE TO EXCESS CA 10/14/2016 MIRIAM SPENCERP Ot I10 ESSENTIAL (PRIMARY) HYPERTENSION 10/14/2016 MIRIAM SPENCERP Ot 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 10/14/2016 MIRIAM SPENCER Ot M17.11 UNILATERAL PRIMARY OSTEOARTHRITIS, RIGHT 10/14/2016 MIRIAM SPENCERP Ot 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 10/14/2016 MIRIAM SPENCERP Ot S63.501A UNSPECIFIED SPRAIN OF RIGHT WRIST, INITI 10/14/2016 MIRIAM SPENCERP Ot S69.91XA UNSP INJURY OF RIGHT WRIST, HAND AND FIN 10/14/2016 MIRIAM SPENCERP Ot S89.91XA UNSPECIFIED INJURY OF RIGHT LOWER LEG, I 10/14/2016 MIRIAM SPENCERP Ot W05.0XXA FALL FROM NON-MOVING WHEELCHAIR, INITIAL 10/14/2016 MIRIAM SPENCERP Ot Y99.8 OTHER EXTERNAL CAUSE STATUS 10/14/2016 TJ MIRIAM OPERATIONS SUPPORT MANAGER Ot 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 10/14/2016 TJMIRIAM YusufP Ot Z86.718 PERSONAL HISTORY OF OTHER VENOUS THROMBO 10/16/2016 TJMIRIAM Yusuf OPERATIONS SUPPORT MANAGER Ot E66.01 MORBID (SEVERE) OBESITY DUE TO EXCESS CA 10/16/2016 TJMIRIAM YusufP Ot I10 ESSENTIAL (PRIMARY) HYPERTENSION 10/16/2016 TJMIRIAM YusufP Ot 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 10/16/2016 TJMIRIAM YusufP Ot M17.11 UNILATERAL PRIMARY OSTEOARTHRITIS, RIGHT 10/16/2016 TJMIRIAM YusufP Ot 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 10/16/2016 TJMIRIAM YusufP Ot S63.501A UNSPECIFIED SPRAIN OF RIGHT WRIST, INITI 10/16/2016 TJMIRIAM YusufP Ot S69.91XA UNSP INJURY OF RIGHT WRIST, HAND AND FIN 10/16/2016 TJMIRIAM YusufP Ot S89.91XA UNSPECIFIED INJURY OF RIGHT LOWER LEG, I 10/16/2016 TJMIRIAM YusufP Ot W05.0XXA FALL FROM NON-MOVING WHEELCHAIR, INITIAL 10/16/2016 TJMIRIAM Yusuf OPERATIONS SUPPORT MANAGER Ot Y99.8 OTHER EXTERNAL CAUSE STATUS 10/16/2016 TJ, MIRIAM LOZOYAP Ot 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 10/16/2016 TJMIRIAM YusufP Ot Z86.718 PERSONAL HISTORY OF OTHER VENOUS THROMBO 10/30/2016 REAGAN MCNEILL MD, Ot Z51.81 ENCOUNTER FOR THERAPEUTIC DRUG LEVEL MON 10/30/2016 REAGAN MCNEILL MD, Ot 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 10/30/2016 REAGAN MCNEILL MD, Ot Z86.711 PERSONAL HISTORY OF PULMONARY EMBOLISM 11/06/2016 REAGAN MCNEILL MD, Ot Z51.81 ENCOUNTER FOR THERAPEUTIC DRUG LEVEL MON 11/06/2016 REAGAN MCNEILL MD Ot Z79.01 RESIDENTIAL (CURRENT) USE OF ANTICOAGULANT 11/06/2016 REAGAN MCNEILL MD, Ot Z86.711 PERSONAL HISTORY OF PULMONARY EMBOLISM 12/28/2016 CHARITO NAM, REAGAN Balderas Ot Z51.81 ENCOUNTER FOR THERAPEUTIC DRUG LEVEL MON 12/28/2016 REAGAN MCNEILL MD, Ot Z79.01 RESIDENTIAL (CURRENT) USE OF ANTICOAGULANT 12/28/2016 REAGAN MCNEILL MD, Ot Z86.711 PERSONAL HISTORY OF PULMONARY EMBOLISM 12/28/2016 BESSY KARENAA Astrid Ot E03.9 HYPOTHYROIDISM, UNSPECIFIED 12/28/2016 BESSY DO NORIS K Ot E66.01 MORBID (SEVERE) OBESITY DUE TO EXCESS CA 12/28/2016 BESSY DO NORIS K Ot E78.00 PURE HYPERCHOLESTEROLEMIA, UNSPECIFIED 12/28/2016 BESSY DO NORIS K Ot G44.209 TENSION-TYPE HEADACHE, UNSPECIFIED, NOT 12/28/2016 BESSY DO NORIS K Ot G47.30 SLEEP APNEA, UNSPECIFIED 12/28/2016 BESSY DO NORIS K Ot I10 ESSENTIAL (PRIMARY) HYPERTENSION 12/28/2016 BESSY DO NORIS K Ot 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 12/28/2016 BESSY DO NORIS K Ot I73.9 PERIPHERAL VASCULAR DISEASE, UNSPECIFIED 12/28/2016 BESSY DO NORIS K Ot J45.909 UNSPECIFIED ASTHMA, UNCOMPLICATED 12/28/2016 BESSY DO NORIS K Ot K21.9 GASTRO-ESOPHAGEAL REFLUX DISEASE WITHOUT 12/28/2016 BESSY DO NORIS K Ot M19.90 UNSPECIFIED OSTEOARTHRITIS, UNSPECIFIED 12/28/2016 BESSY DO NORIS K Ot R51 HEADACHE 12/28/2016 BESSY DO NORIS K Ot Z79.01 RESIDENTIAL (CURRENT) USE OF ANTICOAGULANT 12/28/2016 BESSY DO NORIS K Ot Z80.0 FAMILY HISTORY OF MALIGNANT NEOPLASM OF 12/28/2016 BESSY DO NORIS K Ot Z82.49 FAMILY HX OF ISCHEM HEART DIS AND OTH DI 12/28/2016 BESSY KARENA MOYAA K Ot Z86.718 PERSONAL HISTORY OF OTHER VENOUS THROMBO 12/28/2016 BESSY KARENA MOYAA K Ot Z87.19 PERSONAL HISTORY OF OTHER DISEASES OF TH 12/28/2016 BESSY KARENA MOYAA Astrid Ot Z87.448 PERSONAL HISTORY OF OTHER DISEASES OF UR 12/28/2016 BESSY KARENA MOYAA K Ot Z90.49 ACQUIRED ABSENCE OF OTHER SPECIFIED PART 12/28/2016 BESSY MOYA NORIS Astrid Ot Z90.710 ACQUIRED ABSENCE OF BOTH CERVIX AND UTER 12/30/2016 BESSY MOYA NORIS Astrid Ot E03.9 HYPOTHYROIDISM, UNSPECIFIED 12/30/2016 BESSY MOYA NORIS Astrid Ot E66.01 MORBID (SEVERE) OBESITY DUE TO EXCESS CA 12/30/2016 BESSY MOYA NORIS Astrid Ot E78.00 PURE HYPERCHOLESTEROLEMIA, UNSPECIFIED 12/30/2016 BESSY MOYANORIS Ot G44.209 TENSION-TYPE HEADACHE, UNSPECIFIED, NOT 12/30/2016 BESSY MOYA NORIS Astrid Ot G47.30 SLEEP APNEA, UNSPECIFIED 12/30/2016 BESSY MOYANORIS Ot I10 ESSENTIAL (PRIMARY) HYPERTENSION 12/30/2016 BESSY MOYA NORIS Astrid Ot 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 12/30/2016 BESSY DOKARENAA Astrid Ot I73.9 PERIPHERAL VASCULAR DISEASE, UNSPECIFIED 12/30/2016 BESSY MOYA NORIS K Ot J45.909 UNSPECIFIED ASTHMA, UNCOMPLICATED 12/30/2016 BESSY MOYA NORIS K Ot K21.9 GASTRO-ESOPHAGEAL REFLUX DISEASE WITHOUT 12/30/2016 BESSY MOYA NORIS Astrid Ot M19.90 UNSPECIFIED OSTEOARTHRITIS, UNSPECIFIED 12/30/2016 BESSY NORIS Astrid Ot R51 HEADACHE 12/30/2016 BESSY MOYA NORIS Astrid Ot Z79.01 RESIDENTIAL (CURRENT) USE OF ANTICOAGULANT 12/30/2016 BESSY NORIS Ot Z80.0 FAMILY HISTORY OF MALIGNANT NEOPLASM OF 12/30/2016 BESSY MOYANORIS Ot Z82.49 FAMILY HX OF ISCHEM HEART DIS AND OTH DI 12/30/2016 BESSY MOYANORIS Ot Z86.718 PERSONAL HISTORY OF OTHER VENOUS THROMBO 12/30/2016 NORIS DOHERTY DO Ot Z87.19 PERSONAL HISTORY OF OTHER DISEASES OF TH 12/30/2016 NORIS DOHERTY DO Ot Z87.448 PERSONAL HISTORY OF OTHER DISEASES OF UR 12/30/2016 NORIS DOHERTY DO Ot Z90.49 ACQUIRED ABSENCE OF OTHER SPECIFIED PART 12/30/2016 BESSY NORIS Ot Z90.710 ACQUIRED ABSENCE OF BOTH CERVIX AND UTER 01/03/2017 BESSY MOYA NORIS Astrid Ot E03.9 HYPOTHYROIDISM, UNSPECIFIED 01/03/2017 BESSY MOYA NORIS Astrid Ot E66.01 MORBID (SEVERE) OBESITY DUE TO EXCESS CA 01/03/2017 BESSY MOYA NORIS Astrid Ot E78.00 PURE HYPERCHOLESTEROLEMIA, UNSPECIFIED 01/03/2017 BESSY NORIS K Ot G44.209 TENSION-TYPE HEADACHE, UNSPECIFIED, NOT 01/03/2017 BESSY MOYA NORIS Astrid Ot G47.30 SLEEP APNEA, UNSPECIFIED 01/03/2017 BESSY MOYA NORIS Astrid Ot I10 ESSENTIAL (PRIMARY) HYPERTENSION 01/03/2017 BESSY MOYA NORIS Astrid Ot 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 01/03/2017 BESSY MOYA NORIS Astrid Ot I73.9 PERIPHERAL VASCULAR DISEASE, UNSPECIFIED 01/03/2017 BESSY MOYA NORIS K Ot J45.909 UNSPECIFIED ASTHMA, UNCOMPLICATED 01/03/2017 BESSY DO NORIS Astrid Ot K21.9 GASTRO-ESOPHAGEAL REFLUX DISEASE WITHOUT 01/03/2017 BESSY MOYA NORIS Astrid Ot M19.90 UNSPECIFIED OSTEOARTHRITIS, UNSPECIFIED 01/03/2017 BESSY MOYA NORIS K Ot R51 HEADACHE 01/03/2017 BESSY MOYA NORIS Astrid Ot Z79.01 RESIDENTIAL (CURRENT) USE OF ANTICOAGULANT 01/03/2017 BESSY MOYA NORIS Astrid Ot Z80.0 FAMILY HISTORY OF MALIGNANT NEOPLASM OF 01/03/2017 BESSY NORIS Astrid Ot Z82.49 FAMILY HX OF ISCHEM HEART DIS AND OTH DI 01/03/2017 BESSY KARENA MOYAA Astrid Ot Z86.718 PERSONAL HISTORY OF OTHER VENOUS THROMBO 01/03/2017 BESSY MOYAKARENAA Astrid Ot Z87.19 PERSONAL HISTORY OF OTHER DISEASES OF TH 01/03/2017 BESSY KARENAA Astrid Ot Z87.448 PERSONAL HISTORY OF OTHER DISEASES OF UR 01/03/2017 NORIS DOHERTY DO Ot Z90.49 ACQUIRED ABSENCE OF OTHER SPECIFIED PART 01/03/2017 BESSY DOKARENAA Astrid Ot Z90.710 ACQUIRED ABSENCE OF BOTH CERVIX AND UTER 01/20/2017 JESSICA NAM, CHARLES Shannon Ot E03.9 HYPOTHYROIDISM, UNSPECIFIED 01/20/2017 CHARLES LOPEZ MD, Ot E66.01 MORBID (SEVERE) OBESITY DUE TO EXCESS CA 01/20/2017 CHARLES LOPEZ MD Ot E78.00 PURE HYPERCHOLESTEROLEMIA, UNSPECIFIED 01/20/2017 CHARLES LOPEZ MD Ot G47.30 SLEEP APNEA, UNSPECIFIED 01/20/2017 CHARLES LOPEZ MD Ot I10 ESSENTIAL (PRIMARY) HYPERTENSION 01/20/2017 CHARLES LOPEZ MD Ot 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 01/20/2017 CHARLES LOPEZ MD, Ot I73.9 PERIPHERAL VASCULAR DISEASE, UNSPECIFIED 01/20/2017 CHARLES LOPEZ MD, Ot J45.909 UNSPECIFIED ASTHMA, UNCOMPLICATED 01/20/2017 CHARLES LOPEZ MD, Ot K21.9 GASTRO-ESOPHAGEAL REFLUX DISEASE WITHOUT 01/20/2017 CHARLES LOPEZ MD Ot M19.90 UNSPECIFIED OSTEOARTHRITIS, UNSPECIFIED 01/20/2017 CHARLES LOPEZ MD, Ot N39.0 URINARY TRACT INFECTION, SITE NOT SPECIF 01/20/2017 CHARLES LOPEZ MD Ot R00.2 PALPITATIONS 01/20/2017 CHARLES LOPEZ MD Ot R42 DIZZINESS AND GIDDINESS 01/20/2017 CHARLES LOPEZ MD, Ot R51 HEADACHE 01/20/2017 CHARLES LOPEZ MD, Ot Z79.01 RESIDENTIAL (CURRENT) USE OF ANTICOAGULANT 01/20/2017 CHARLES LOPEZ MD Ot Z80.0 FAMILY HISTORY OF MALIGNANT NEOPLASM OF 01/20/2017 CHARLES LOPEZ MD Ot Z82.49 FAMILY HX OF ISCHEM HEART DIS AND OTH DI 01/20/2017 CHARLES LOPEZ MD, Ot Z86.718 PERSONAL HISTORY OF OTHER VENOUS THROMBO 01/20/2017 CHARLES LOPEZ MD Ot Z86.79 PERSONAL HISTORY OF OTHER DISEASES OF 01/20/2017 CHARLES LOPEZ MD Ot Z87.19 PERSONAL HISTORY OF OTHER DISEASES OF 01/20/2017 CHARLES LOPEZ MD, Ot Z87.442 PERSONAL HISTORY OF URINARY CALCULI 01/20/2017 CHARLES LOPEZ MD, Ot Z87.448 PERSONAL HISTORY OF OTHER DISEASES OF UR 01/20/2017 CHARLES LOPEZ MD, Ot Z90.49 ACQUIRED ABSENCE OF OTHER SPECIFIED PART 01/20/2017 CHARLES LOPEZ MD, Ot Z90.710 ACQUIRED ABSENCE OF BOTH CERVIX AND UTER 01/20/2017 CHARLES LOPEZ MD, Ot Z90.89 ACQUIRED ABSENCE OF OTHER ORGANS 01/20/2017 CHARLES LOPEZ MD, Ot Z97.5 PRESENCE OF (INTRAUTERINE) CONTRACEPTIVE 01/22/2017 CHARLES LOPEZ MD Ot E03.9 HYPOTHYROIDISM, UNSPECIFIED 01/22/2017 CHARLES LOPEZ MD Ot E66.01 MORBID (SEVERE) OBESITY DUE TO EXCESS CA 01/22/2017 CHARLES LOPEZ MD Ot E78.00 PURE HYPERCHOLESTEROLEMIA, UNSPECIFIED 01/22/2017 CHARLES LOPEZ MD Ot G47.30 SLEEP APNEA, UNSPECIFIED 01/22/2017 CHARLES LOPEZ MD Ot I10 ESSENTIAL (PRIMARY) HYPERTENSION 01/22/2017 CHARLES LOPEZ MD, Ot 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 01/22/2017 CHARLES LOPEZ MD, Ot I73.9 PERIPHERAL VASCULAR DISEASE, UNSPECIFIED 01/22/2017 CHARLES LOPEZ MD, Ot J45.909 UNSPECIFIED ASTHMA, UNCOMPLICATED 01/22/2017 CHARLES LOPEZ MD, Ot K21.9 GASTRO-ESOPHAGEAL REFLUX DISEASE WITHOUT 01/22/2017 CHARLES LOPEZ MD, Ot M19.90 UNSPECIFIED OSTEOARTHRITIS, UNSPECIFIED 01/22/2017 CHARLES LOPEZ MD Ot N39.0 URINARY TRACT INFECTION, SITE NOT SPECIF 01/22/2017 CHARLES LOPEZ MD Ot R00.2 PALPITATIONS 01/22/2017 CHARLES LOPEZ MD, Ot R42 DIZZINESS AND GIDDINESS 01/22/2017 CHARLES LOPEZ MD, Ot R51 HEADACHE 01/22/2017 CHARLES LOPEZ MD, Ot Z79.01 RESIDENTIAL (CURRENT) USE OF ANTICOAGULANT 01/22/2017 CHARLES LOPEZ MD, Ot Z80.0 FAMILY HISTORY OF MALIGNANT NEOPLASM OF 01/22/2017 CHARLES LOPEZ MD, Ot Z82.49 FAMILY HX OF ISCHEM HEART DIS AND OTH DI 01/22/2017 CHARLES LOPEZ MD Ot Z86.718 PERSONAL HISTORY OF OTHER VENOUS THROMBO 01/22/2017 CHARLES LOPEZ MD Ot Z86.79 PERSONAL HISTORY OF OTHER DISEASES OF TH 01/22/2017 CHARLES LOPEZ MD, Ot Z87.19 PERSONAL HISTORY OF OTHER DISEASES OF TH 01/22/2017 CHARLES LOPEZ MD, Ot Z87.442 PERSONAL HISTORY OF URINARY CALCULI 01/22/2017 CHARLES LOPEZ MD, Ot Z87.448 PERSONAL HISTORY OF OTHER DISEASES OF UR 01/22/2017 CHARLES LOPEZ MD Ot Z90.49 ACQUIRED ABSENCE OF OTHER SPECIFIED PART 01/22/2017 CHARLES LOPEZ MD Ot Z90.710 ACQUIRED ABSENCE OF BOTH CERVIX AND UTER 01/22/2017 CHARLES LOPEZ MD Ot Z90.89 ACQUIRED ABSENCE OF OTHER ORGANS 01/22/2017 CHARLES LOPEZ MD Ot Z97.5 PRESENCE OF (INTRAUTERINE) CONTRACEPTIVE 07/13/2017 PAYAL VIGIL INTEGRATION SOFTWARE DEVELOPER Ot J98.11 ATELECTASIS 07/13/2017 PAYAL VIGIL INTEGRATION SOFTWARE DEVELOPER Ot Z87.442 PERSONAL HISTORY OF URINARY CALCULI 07/13/2017 PAYAL VIGIL INTEGRATION SOFTWARE DEVELOPER Ot J98.11 ATELECTASIS 07/13/2017 PAYAL VIGIL INTEGRATION SOFTWARE DEVELOPER Ot Z87.442 PERSONAL HISTORY OF URINARY CALCULI 07/31/2017 REAGAN MCNEILL MD, Ot Z51.81 ENCOUNTER FOR THERAPEUTIC DRUG LEVEL MON 07/31/2017 REAGAN MCNEILL MD, Ot 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 07/31/2017 REAGAN MCNEILL MD, Ot Z86.711 PERSONAL HISTORY OF PULMONARY EMBOLISM 07/31/2017 PAYAL VIGIL APRN Ot J98.11 ATELECTASIS 07/31/2017 PAYAL VIGIL APRN Ot Z87.442 PERSONAL HISTORY OF URINARY CALCULI 08/06/2017 MICHAEL WAGNER Ot I10 ESSENTIAL (PRIMARY) HYPERTENSION 08/06/2017 MICHAEL WAGNER Ot 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 08/06/2017 MICHAEL WAGNER Ot R06.09 OTHER FORMS OF DYSPNEA 08/06/2017 MICHAEL WAGNER Ot R07.89 OTHER CHEST PAIN 08/07/2017 REAGAN MCNEILL MD, Ot Z51.81 ENCOUNTER FOR THERAPEUTIC DRUG LEVEL MON 08/07/2017 REAGAN MCNEILL MD, Ot 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 08/07/2017 REAGAN MCNEILL MD, Ot Z86.711 PERSONAL HISTORY [...] FIBROSCLEROSIS OF BREAST 08/19/2017 ACE BAJWA MD Ot V58.61 ANTICOAGULANTS,LT,CURRENT USE 08/19/2017 ACE BAJWA MD Ot V58.83 ENCOUNTER FOR THERAPEUTIC DRUG MONITORIN [...] CHEST PAIN NOS 08/19/2017 CHAS RODARTE DO S Ot 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 08/19/2017 CHAS RODARTE DO S Ot 625.9 FEM GENITAL SYMPTOMS NOS 08/19/2017 CHAS RODARTE DO S Ot 626.8 MENSTRUAL DISORDER NEC 08/19/2017 CHAS RODARTE DO S Ot 627.1 POSTMENOPAUSAL BLEEDING 08/19/2017 CHAS RODARTE DO S Ot V72.84 EXAM PRE-OPERATIVE NOS 08/19/2017 CHAS RODARTE DO S Ot V74.8 SCREEN-BACTERIAL DIS NEC 08/19/2017 CHAS RODARTE DO S Ot 789.03 ABDOMINAL [...] NOS 08/19/2017 CHAS RODARTE DO S Ot 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 ENDOMETRIAL HYPERPLASIA WITHOUT 08/19/2017 CHAS RODARTE DO S Ot V25.42 IUD SURVEILLANCE 08/19/2017 CHAS RODARTE DO S Ot R10.2 PELVIC AND PERINEAL PAIN 08/19/2017 LITTLEJOHNBALDEV ARMAS DO Ot R10.2 PELVIC AND PERINEAL PAIN 08/19/2017 BALDEV LITTLEJOHN DO Ot R10.10 UPPER ABDOMINAL PAIN, UNSPECIFIED 08/19/2017 LITTLEJOHNBALDEV ARMAS DO Ot Z01.818 ENCOUNTER FOR OTHER PREPROCEDURAL EXAMIN 08/19/2017 CHASTITYCHAS JOHNSON DO S Ot D25.9 LEIOMYOMA OF UTERUS, UNSPECIFIED 08/19/2017 CHASTITYCHAS JOHNSON DO S Ot Z01.812 ENCOUNTER FOR PREPROCEDURAL LABORATORY E 08/19/2017 CAYDEN CHAS MOYA S Ot Z11.2 ENCOUNTER FOR SCREENING FOR [...] PAIN IN THORACIC SPINE 08/19/2017 KAVYA PATRICK INTEGRATION SOFTWARE DEVELOPER Ot E66.01 MORBID (SEVERE) OBESITY DUE TO EXCESS CA 08/19/2017 KAVYA PATRICK INTEGRATION SOFTWARE DEVELOPER Ot R10.84 GENERALIZED ABDOMINAL PAIN 08/19/2017 KAVYA PATRICK INTEGRATION SOFTWARE DEVELOPER Ot Z68.43 BODY MASS INDEX (BMI) 50-59.9 , ADULT 08/19/2017 REAGAN MCNEILL MD, Ot Z51.81 ENCOUNTER FOR THERAPEUTIC DRUG LEVEL MON 08/19/2017 REAGAN MCNEILL MD Ot 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 08/19/2017 REAGAN MCNEILL MD Ot Z86.711 PERSONAL HISTORY OF PULMONARY EMBOLISM 08/19/2017 PAYAL VIGIL APRN Ot M54.2 CERVICALGIA 08/19/2017 PAYAL VIGIL APRN Ot Z53.29 PROC/TRTMT NOT CRD OUT BEC PT DECISION F 08/19/2017 REAGAN MCNEILL MD, Ot Z51.81 ENCOUNTER FOR THERAPEUTIC DRUG LEVEL MON 08/19/2017 REAGAN MCNEILL MD Ot Z79.01 RESIDENTIAL (CURRENT) USE OF ANTICOAGULANT 08/19/2017 REAGAN MCNEILL MD Ot Z86.711 PERSONAL HISTORY OF PULMONARY EMBOLISM 08/19/2017 PAYAL VIGIL APRN Ot J98.11 ATELECTASIS 08/19/2017 PAYAL VIGIL APRN Ot Z87.442 PERSONAL HISTORY OF URINARY CALCULI 08/19/2017 MICHAEL WAGNER Ot I10 ESSENTIAL (PRIMARY) HYPERTENSION 08/19/2017 MICHAEL WAGNER Ot 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 08/19/2017 MICHAEL WAGNER Ot R06.09 OTHER [...] FREED Ot 610.3 FIBROSCLEROSIS OF BREAST 08/19/2017 JOSE EDUARDO BAJWA MDIQ Z Ot V58.61 ANTICOAGULANTS,LT,CURRENT USE 08/19/2017 GARETT [...] CHEST PAIN NOS 08/19/2017 CHAS RODARTE DO S Ot 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 08/19/2017 CHAS RODARTE DO S Ot 625.9 FEM GENITAL SYMPTOMS NOS 08/19/2017 CHAS RODARTE DO S Ot 626.8 MENSTRUAL DISORDER NEC 08/19/2017 CHAS RODARTE DO S Ot 627.1 POSTMENOPAUSAL BLEEDING 08/19/2017 CHAS RODARTE DO S Ot V72.84 EXAM PRE-OPERATIVE NOS 08/19/2017 CHAS RODARTE DO S Ot V74.8 SCREEN-BACTERIAL DIS NEC 08/19/2017 CHAS RODARTE DO S Ot 789.03 ABDOMINAL [...] NOS 08/19/2017 CHAS RODARTE DO S Ot 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 ENDOMETRIAL HYPERPLASIA WITHOUT 08/19/2017 CHAS RODARTE DO S Ot V25.42 IUD SURVEILLANCE 08/19/2017 CHAS RODARTE DO S Ot R10.2 PELVIC AND PERINEAL PAIN 08/19/2017 BALDEV LITTLEJOHN DO Ot R10.2 PELVIC AND PERINEAL PAIN 08/19/2017 BALDEV LITTLEJOHN DO Ot R10.10 UPPER ABDOMINAL PAIN, UNSPECIFIED 08/19/2017 BALDEV LITTLEJOHN DO Ot Z01.818 ENCOUNTER FOR OTHER PREPROCEDURAL EXAMIN 08/19/2017 CAYDEN MOYA CHAS S Ot D25.9 LEIOMYOMA OF UTERUS, UNSPECIFIED 08/19/2017 CAYDEN MOYA CHAS S Ot Z01.812 ENCOUNTER FOR PREPROCEDURAL LABORATORY E 08/19/2017 CAYDEN MOYACHAS S Ot Z11.2 ENCOUNTER FOR SCREENING FOR [...] PAIN IN THORACIC SPINE 08/19/2017 KAVYA PATRICK INTEGRATION SOFTWARE DEVELOPER Ot E66.01 MORBID (SEVERE) OBESITY DUE TO EXCESS CA 08/19/2017 KAVYA PATRICK INTEGRATION SOFTWARE DEVELOPER Ot R10.84 GENERALIZED ABDOMINAL PAIN 08/19/2017 KAVYA PATRICK INTEGRATION SOFTWARE DEVELOPER Ot Z68.43 BODY MASS INDEX (BMI) 50-59.9 , ADULT 08/19/2017 REAGAN MCNEILL MD, Ot Z51.81 ENCOUNTER FOR THERAPEUTIC DRUG LEVEL MON 08/19/2017 REAGAN MCNEILL MD, Ot Z79.01 RESIDENTIAL (CURRENT) USE OF ANTICOAGULANT 08/19/2017 REAGAN MCNEILL MD, Ot Z86.711 PERSONAL HISTORY OF PULMONARY EMBOLISM 08/19/2017 PAYAL VIGIL APRN Ot M54.2 CERVICALGIA 08/19/2017 PAYAL VIGIL APRN Ot Z53.29 PROC/TRTMT NOT CRD OUT BEC PT DECISION F 08/19/2017 REAGAN MCNEILL MD, Ot Z51.81 ENCOUNTER FOR THERAPEUTIC DRUG LEVEL MON 08/19/2017 REAGAN MCNEILL MD, Ot 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 08/19/2017 REAGAN MCNEILL MD, Ot Z86.711 PERSONAL HISTORY OF PULMONARY EMBOLISM 08/19/2017 PAYAL VIGIL APRN Ot J98.11 ATELECTASIS 08/19/2017 PAYAL VIGIL APRN Ot Z87.442 PERSONAL HISTORY OF URINARY CALCULI 08/19/2017 MICHAEL WAGNER Ot I10 ESSENTIAL (PRIMARY) HYPERTENSION 08/19/2017 MICHAEL WAGNER Ot 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 08/19/2017 MICHAEL WAGNER Ot R06.09 OTHER FORMS OF DYSPNEA 08/19/2017 MICHAEL WAGNER Ot R07.89 OTHER CHEST PAIN 08/20/2017 REAGAN MCNEILL MD Ot E03.9 HYPOTHYROIDISM, UNSPECIFIED 08/20/2017 REAGAN MCNEILL MD Ot E66.9 OBESITY, UNSPECIFIED 08/20/2017 REAGAN MCNEILL MD Ot E78.5 HYPERLIPIDEMIA, UNSPECIFIED 08/20/2017 REAGAN MCNEILL MD Ot I10 ESSENTIAL (PRIMARY) HYPERTENSION 08/20/2017 REAGAN MCNEILL MD Ot I25.110 ATHSCL HEART DISEASE OF [place] COR ART W 08/20/2017 REAGAN MCNEILL MD Ot I77.1 STRICTURE OF ARTERY 08/20/2017 REAGAN MCNEILL MD Ot J45.909 UNSPECIFIED ASTHMA, UNCOMPLICATED 08/20/2017 REAGAN MCNEILL MD Ot R82.90 UNSPECIFIED ABNORMAL FINDINGS IN URINE 08/20/2017 REAGAN MCNEILL MD Ot Z68.43 BODY MASS INDEX (BMI) 50-59.9 , ADULT 08/20/2017 REAGAN MCNEILL MD Ot Z79.01 RESIDENTIAL (CURRENT) USE OF ANTICOAGULANT 08/20/2017 REAGAN MCNEILL [...] PAIN IN LIMB 08/20/2017 CATERINA SHAH DO Danielle Ot 278.1 LOCALIZED ADIPOSITY 08/20/2017 CATERINA SHAH DO Danielle Ot 493.90 ASTHMA, UNSPECIFIED 08/20/2017 CATERINA SHAH DO Danielle Ot 786.09 RESPIRATORY ABNORM NEC 08/20/2017 BALDEV LITTLEJOHN DO Ot 569.3 RECTAL ANAL HEMORRHAGE 08/20/2017 BALDEV LITTLEJOHN DO Ot V72.84 EXAM PRE-OPERATIVE NOS 08/20/2017 CAYDEN CHAS MOYA S Ot 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 08/20/2017 CAYDEN CHAS MOYA S Ot 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 ENDOMETRIAL HYPERPLASIA WITHOUT 08/20/2017 CHASTITYCHAS JOHNSON DO Ot V25.42 IUD SURVEILLANCE 08/20/2017 CAYDEN CHAS MOYA Ot R10.2 PELVIC AND PERINEAL PAIN 08/20/2017 BALDEV LITTLEJOHN DO Ot R10.2 PELVIC AND PERINEAL PAIN 08/20/2017 BALDEV LITTLEJOHN DO Ot R10.10 UPPER ABDOMINAL PAIN, UNSPECIFIED 08/20/2017 BALDEV LITTLEJOHN DO Ot Z01.818 ENCOUNTER FOR OTHER PREPROCEDURAL EXAMIN 08/20/2017 CAYDEN CHAS MOYA Ot D25.9 LEIOMYOMA OF UTERUS, UNSPECIFIED 08/20/2017 CAYDEN CHAS MOYA Ot Z01.812 ENCOUNTER FOR PREPROCEDURAL LABORATORY E 08/20/2017 CAYDEN CHAS MOYA Ot Z11.2 ENCOUNTER FOR SCREENING FOR OTHER BACTER 08/20/2017 CHEN INFANTE INTEGRATION SOFTWARE DEVELOPER Ot J06.9 ACUTE UPPER RESPIRATORY INFECTION, UNSPE 08/20/2017 MIGDALIA JIMENEZ DO Ot 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 08/20/2017 MIGDALIA JIMENEZ DO Ot E03.9 HYPOTHYROIDISM, UNSPECIFIED 08/20/2017 MIGDALIA JIMENEZ DO Ot Z86.010 PERSONAL HISTORY OF COLONIC POLYPS 08/20/2017 PAYAL VIGIL INTEGRATION SOFTWARE DEVELOPER Ot M54.6 PAIN IN THORACIC SPINE 08/20/2017 KAVYA PATRICK INTEGRATION SOFTWARE DEVELOPER Ot E66.01 MORBID (SEVERE) OBESITY DUE TO EXCESS CA 08/20/2017 KAVYA PATRICK INTEGRATION SOFTWARE DEVELOPER Ot R10.84 GENERALIZED ABDOMINAL PAIN 08/20/2017 KAVYA PATRICK CHELA Ot Z68.43 BODY MASS INDEX (BMI) 50-59.9 , ADULT 08/20/2017 REAGAN MCNEILL MD, Ot Z51.81 ENCOUNTER FOR THERAPEUTIC DRUG LEVEL MON 08/20/2017 REAGAN MCNEILL MD, Ot 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 08/20/2017 REAGAN MCNEILL MD, Ot Z86.711 PERSONAL HISTORY OF PULMONARY EMBOLISM 08/20/2017 PAYAL VIGIL APRN Ot M54.2 CERVICALGIA 08/20/2017 PAYAL VIGIL APRN Ot Z53.29 PROC/TRTMT NOT CRD OUT BEC PT DECISION F 08/20/2017 REAGAN MCNEILL MD, Ot Z51.81 ENCOUNTER FOR THERAPEUTIC DRUG LEVEL MON 08/20/2017 REAGAN MCNEILL MD, Ot 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 08/20/2017 REAGAN MCNEILL MD, Ot Z86.711 PERSONAL HISTORY OF PULMONARY EMBOLISM 08/20/2017 PAYAL VIGIL APRN Ot J98.11 ATELECTASIS 08/20/2017 PAYAL VIGIL APRN Ot Z87.442 PERSONAL HISTORY OF URINARY CALCULI 08/20/2017 MICHAEL WAGNER Ot I10 ESSENTIAL (PRIMARY) HYPERTENSION 08/20/2017 MICHAEL WAGNER Ot 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 08/20/2017 MICHAEL WAGNER Ot R06.09 OTHER [...] APRN Ot 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 08/20/2017 SHALOM RAMÍREZ APRN Ot I73.9 PERIPHERAL VASCULAR DISEASE, UNSPECIFIED 08/20/2017 SHALOM RAMÍREZ APRN Ot J44.9 CHRONIC OBSTRUCTIVE PULMONARY DISEASE, U 08/20/2017 SHALOM RAMÍREZ APRN Ot K21.9 GASTRO-ESOPHAGEAL REFLUX DISEASE WITHOUT 08/20/2017 SHALOM RAMÍREZ APRN Ot R07.2 PRECORDIAL PAIN 08/20/2017 SHALOM RAMÍREZ APRN Ot Z68.43 BODY MASS INDEX (BMI) 50-59.9 , ADULT 08/20/2017 SHALOM RAMÍREZ APRN Ot Z79.01 RESIDENTIAL (CURRENT) USE OF ANTICOAGULANT 08/20/2017 SHALOM RAMÍREZ APRN Ot 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 08/20/2017 SHALOM RAMÍREZ APRN Ot Z79.51 RESIDENTIAL (CURRENT) USE OF INHALED STERO 08/20/2017 SHALOM RAMÍREZ APRN Ot Z79.82 RESIDENTIAL (CURRENT) USE OF ASPIRIN 08/20/2017 SHALOM RAMÍREZ [...] Z88.8 ALLERGY STATUS TO OT DRUG/MEDS/BIOL SUB 08/20/2017 SHALOM RAMÍREZ APRN Ot Z90.49 ACQUIRED ABSENCE OF OTHER SPECIFIED PART 08/20/2017 SHALOM RAMÍREZ APRN Ot Z90.710 ACQUIRED ABSENCE OF BOTH CERVIX AND UTER 08/20/2017 SHALOM RAMÍREZ INTEGRATION SOFTWARE DEVELOPER Ot Z90.89 ACQUIRED ABSENCE OF OTHER ORGANS 08/20/2017 SHALOM RAMÍREZ INTEGRATION SOFTWARE DEVELOPER Ot Z91.048 OTHER NONMEDICINAL SUBSTANCE ALLERGY STA 08/20/2017 SHALOM RAMÍREZ INTEGRATION SOFTWARE DEVELOPER Ot Z97.5 PRESENCE OF (INTRAUTERINE) CONTRACEPTIVE 08/20/2017 [...] FIBROSCLEROSIS OF BREAST 08/20/2017 ACE BAJWA MD Z Ot V58.61 ANTICOAGULANTS,LT,CURRENT USE 08/20/2017 JOSE EDUARDO BAJWA MDIQ Z Ot V58.83 ENCOUNTER FOR THERAPEUTIC DRUG [...] UTERINE LEIOMYOMA NOS 08/20/2017 CAYDEN MOYA CHAS Amanda Ot 625.9 FEM GENITAL SYMPTOMS NOS 08/20/2017 CAYDEN MOYA CHAS Amanda Ot 626.8 MENSTRUAL DISORDER NEC 08/20/2017 CAYDEN MOYA CHAS Amanda Ot 627.1 POSTMENOPAUSAL BLEEDING 08/20/2017 CAYDEN DO CHAS Amanda Ot V72.84 EXAM PRE-OPERATIVE NOS 08/20/2017 CAYDEN MOYA CHAS Amanda Ot V74.8 SCREEN-BACTERIAL DIS NEC 08/20/2017 CAYDEN [...] EXAM PRE-OPERATIVE NOS 08/20/2017 CAYDEN CHAS MOYA Ot 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 08/20/2017 CAYDEN DO CHAS Amanda Ot 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 ENDOMETRIAL HYPERPLASIA WITHOUT 08/20/2017 CAYDEN CHAS MOYA Ot V25.42 IUD SURVEILLANCE 08/20/2017 CHAS RODARTE DO Ot R10.2 PELVIC AND [...] SCREENING FOR OTHER BACTER 08/20/2017 CHEN INFANTE INTEGRATION SOFTWARE DEVELOPER Ot J06.9 ACUTE UPPER RESPIRATORY INFECTION, UNSPE [...] APRN Ot R10.84 GENERALIZED ABDOMINAL PAIN 08/20/2017 AKVYA PATRICK APRN Ot Z68.43 BODY MASS INDEX (BMI) 50-59.9 , ADULT 08/20/2017 REAGAN MCNEILL MD, Ot Z51.81 ENCOUNTER FOR THERAPEUTIC DRUG LEVEL MON 08/20/2017 REAGAN MCNEILL MD, Ot 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 08/20/2017 REAGAN MCNEILL MD, Ot Z86.711 PERSONAL HISTORY OF PULMONARY EMBOLISM 08/20/2017 PAYAL VIGIL APRN Ot M54.2 CERVICALGIA 08/20/2017 PAYAL VIGIL APRN Ot Z53.29 PROC/TRTMT NOT CRD OUT BEC PT DECISION F 08/20/2017 REAGAN MCNEILL MD, Ot Z51.81 ENCOUNTER FOR THERAPEUTIC DRUG LEVEL [facility] 08/20/2017 REAGAN MCNEILL MD, Ot Z79.01 RESIDENTIAL (CURRENT) USE OF ANTICOAGULANT 08/20/2017 REAGAN MCNEILL MD, Ot Z86.711 PERSONAL HISTORY OF PULMONARY EMBOLISM 08/20/2017 PAYAL VIGIL APRN Ot J98.11 ATELECTASIS 08/20/2017 PAYAL VIGIL APRN Ot Z87.442 PERSONAL HISTORY OF URINARY CALCULI 08/20/2017 MICHAEL WAGNER Ot I10 ESSENTIAL (PRIMARY) HYPERTENSION 08/20/2017 MICHAEL WAGNER Ot 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 08/20/2017 MICHAEL WAGNER Ot R06.09 OTHER [...] WAGNER Ot 786.50 CHEST PAIN NOS 08/20/2017 FENCHAS JOHNSON DO S Ot 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 08/20/2017 CHAS RODARTE DO Ot 625.9 FEM GENITAL SYMPTOMS NOS 08/20/2017 CHAS RODARTE DO Ot 626.8 MENSTRUAL DISORDER NEC 08/20/2017 CAYDEN MOYACHAS Ot 627.1 POSTMENOPAUSAL BLEEDING 08/20/2017 CAYDEN MOYACHAS Ot V72.84 EXAM PRE-OPERATIVE NOS 08/20/2017 CHAS [...] EXAM PRE-OPERATIVE NOS 08/20/2017 CAYDEN CHAS MOYA Ot 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 08/20/2017 CAYDEN CHAS MOYA Ot 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 ENDOMETRIAL HYPERPLASIA WITHOUT 08/20/2017 [...] Ot M54.6 PAIN IN THORACIC SPINE 08/20/2017 CELINA KAVYA Murphy INTEGRATION SOFTWARE DEVELOPER Ot E66.01 MORBID (SEVERE) OBESITY DUE TO EXCESS CA 08/20/2017 KAVYA PATRICK INTEGRATION SOFTWARE DEVELOPER Ot R10.84 GENERALIZED ABDOMINAL PAIN 08/20/2017 KAVYA PATRICK INTEGRATION SOFTWARE DEVELOPER Ot Z68.43 BODY MASS INDEX (BMI) 50-59.9 , ADULT 08/20/2017 REAGAN MCNEILL MD, Ot Z51.81 ENCOUNTER FOR THERAPEUTIC DRUG LEVEL MON 08/20/2017 REAGAN MCNEILL MD, Ot Z79.01 RESIDENTIAL (CURRENT) USE OF ANTICOAGULANT 08/20/2017 REAGAN MCNEILL MD, Ot Z86.711 PERSONAL HISTORY OF PULMONARY EMBOLISM 08/20/2017 PAYAL VIGIL APRN Ot M54.2 CERVICALGIA 08/20/2017 PAYAL VIGIL APRN Ot Z53.29 PROC/TRTMT NOT CRD OUT BEC PT DECISION F 08/20/2017 REAGAN MCNEILL MD, Ot Z51.81 ENCOUNTER FOR THERAPEUTIC DRUG LEVEL MON 08/20/2017 REAGAN MCNEILL MD, Ot 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 08/20/2017 ERAGAN MCNEILL MD, Ot Z86.711 PERSONAL HISTORY OF PULMONARY EMBOLISM 08/20/2017 PAYAL VIGIL APRN Ot J98.11 ATELECTASIS 08/20/2017 PAYAL VIGIL APRN Ot Z87.442 PERSONAL HISTORY OF URINARY CALCULI 08/20/2017 MICHAEL WAGNER Ot I10 ESSENTIAL (PRIMARY) HYPERTENSION 08/20/2017 MICHAEL WAGNER Ot 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 08/20/2017 MICHAEL WAGNER Ot R06.09 OTHER FORMS OF DYSPNEA 08/20/2017 MICHAEL WAGNER Ot R07.89 OTHER CHEST PAIN 08/20/2017 CHARITO MD, BASHAR J Ot E78.5 HYPERLIPIDEMIA, UNSPECIFIED 08/20/2017 CHARITO NAM, REAGAN Balderas Ot I10 ESSENTIAL (PRIMARY) HYPERTENSION 08/20/2017 REAGAN MCNEILL MD Ot I25.110 ATHSCL HEART DISEASE OF [place] COR ART W 08/20/2017 REAGAN MCNEILL MD [...] FREED Ot 610.3 FIBROSCLEROSIS OF BREAST 08/21/2017 ACE BAJWA MD Ot V58.61 ANTICOAGULANTS,LT,CURRENT USE 08/21/2017 GARETT NAM [...] WAGNER Ot 786.50 CHEST PAIN NOS 08/21/2017 CAYDEN MOYA CHAS Amanda Ot 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 08/21/2017 CAYDEN CHAS MOYA Ot 625.9 FEM GENITAL SYMPTOMS NOS 08/21/2017 CAYDEN MOYACHAS Ot 626.8 MENSTRUAL DISORDER NEC 08/21/2017 CAYDEN MOYACHAS Ot 627.1 POSTMENOPAUSAL BLEEDING 08/21/2017 CAYDEN MOYACHAS Ot V72.84 EXAM PRE-OPERATIVE NOS 08/21/2017 CAYDEN MOYACHAS Ot V74.8 SCREEN-BACTERIAL DIS NEC 08/21/2017 CAYDEN MOYACHAS Ot 789.03 ABDOMINAL PAIN, RIGHT LOWER QUADRANT 08/21/2017 CHARLES FREED Ot 729.5 PAIN IN LIMB 08/21/2017 CATERINA SHAH DO Ot 278.1 LOCALIZED ADIPOSITY 08/21/2017 CATERINA SHAH DO Ot 493.90 ASTHMA, UNSPECIFIED 08/21/2017 CATERINA SHAH DO Ot 786.09 RESPIRATORY ABNORM NEC 08/21/2017 BALDEV LITTLEJOHN DO Ot 569.3 RECTAL ANAL HEMORRHAGE 08/21/2017 BALDEV LITTLEJOHN DO Ot V72.84 EXAM PRE-OPERATIVE NOS 08/21/2017 CAYDEN CHAS MOYA Ot 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 08/21/2017 CAYDEN CHAS MOYA Ot 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 ENDOMETRIAL HYPERPLASIA WITHOUT 08/21/2017 CAYDEN CHAS MOYA Ot V25.42 IUD SURVEILLANCE 08/21/2017 CAYDEN CHAS MOYA Ot R10.2 PELVIC AND PERINEAL PAIN 08/21/2017 BALDEV LITTLEJOHN DO Ot R10.2 PELVIC AND PERINEAL PAIN 08/21/2017 BALDEV LITTLEJOHN DO Ot R10.10 UPPER ABDOMINAL PAIN, UNSPECIFIED 08/21/2017 BALDEV LITTLEJOHN DO Ot Z01.818 ENCOUNTER FOR OTHER PREPROCEDURAL EXAMIN 08/21/2017 CHASTITYCHAS JOHNSON DO Ot D25.9 LEIOMYOMA OF UTERUS, UNSPECIFIED 08/21/2017 CAYDEN CHAS MOYA Ot Z01.812 ENCOUNTER FOR PREPROCEDURAL LABORATORY E 08/21/2017 CHASTITYCHAS JOHNSON DO Ot Z11.2 ENCOUNTER FOR SCREENING FOR OTHER BACTER 08/21/2017 INFANTE, CHEN A INTEGRATION SOFTWARE DEVELOPER Ot J06.9 ACUTE UPPER RESPIRATORY INFECTION, UNSPE 08/21/2017 MIGDALIA JIMENEZ DO Ot 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 08/21/2017 MIGDALIA JIMENEZ DO Ot E03.9 HYPOTHYROIDISM, UNSPECIFIED 08/21/2017 MIGDALIA JIMENEZ DO Ot Z86.010 PERSONAL HISTORY OF COLONIC POLYPS 08/21/2017 PAYAL VIGIL APRN Ot M54.6 PAIN IN THORACIC SPINE 08/21/2017 KAVYA PATRICK APRN Ot E66.01 MORBID (SEVERE) OBESITY DUE TO EXCESS CA 08/21/2017 KAVYA PATRICK APRN Ot R10.84 GENERALIZED ABDOMINAL PAIN 08/21/2017 KAVYA PATRICK INTEGRATION SOFTWARE DEVELOPER Ot Z68.43 BODY MASS INDEX (BMI) 50-59.9 , ADULT 08/21/2017 REAGAN MCNEILL MD, Ot Z51.81 ENCOUNTER FOR THERAPEUTIC DRUG LEVEL MON 08/21/2017 REAGAN MCNEILL MD, Ot 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 08/21/2017 REAGAN MCNEILL MD, Ot Z86.711 PERSONAL HISTORY OF PULMONARY EMBOLISM 08/21/2017 PAYAL VIGIL APRN Ot M54.2 CERVICALGIA 08/21/2017 PAYAL VIGIL APRN Ot Z53.29 PROC/TRTMT NOT CRD OUT BEC PT DECISION F 08/21/2017 REAGAN MCNEILL MD, Ot Z51.81 ENCOUNTER FOR THERAPEUTIC DRUG LEVEL MON 08/21/2017 REAGAN MCNEILL MD, Ot Z79.01 RESIDENTIAL (CURRENT) USE OF ANTICOAGULANT 08/21/2017 REAGAN MCNEILL MD, Ot Z86.711 PERSONAL HISTORY OF PULMONARY EMBOLISM 08/21/2017 PAYAL VIGIL APRN Ot J98.11 ATELECTASIS 08/21/2017 PAYAL VIGIL APRN Ot Z87.442 PERSONAL HISTORY OF URINARY CALCULI 08/21/2017 MICHAEL WAGNER Ot I10 ESSENTIAL (PRIMARY) HYPERTENSION 08/21/2017 MICHAEL WAGNER Ot 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 08/21/2017 MICHAEL WAGNER Ot R06.09 OTHER FORMS OF DYSPNEA 08/21/2017 MICHAEL WAGNER Ot R07.89 OTHER CHEST PAIN 08/21/2017 REAGAN MCNEILL MD, Ot E03.9 HYPOTHYROIDISM, UNSPECIFIED 08/21/2017 REAGAN MCNEILL MD Ot E66.9 OBESITY, UNSPECIFIED 08/21/2017 REAGAN MCNEILL MD Ot E78.5 HYPERLIPIDEMIA, UNSPECIFIED 08/21/2017 REAGAN MCNEILL MD Ot I10 ESSENTIAL (PRIMARY) HYPERTENSION 08/21/2017 REAGAN MCNEILL MD Ot I25.110 ATHSCL HEART DISEASE OF [place] COR ART W 08/21/2017 REAGAN MCNEILL MD Ot I77.1 STRICTURE OF ARTERY 08/21/2017 REAGAN MCNEILL MD, Ot J45.909 UNSPECIFIED ASTHMA, UNCOMPLICATED 08/21/2017 REAGAN MCNEILL MD, Ot Z68.43 BODY MASS INDEX (BMI) 50-59.9 , ADULT 08/21/2017 REAGAN MCNEILL MD Ot Z79.01 RESIDENTIAL (CURRENT) USE OF ANTICOAGULANT 08/21/2017 REAGAN MCNEILL [...] APRN Ot 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 08/24/2017 SHALOM RAMÍREZ APRN Ot I73.9 PERIPHERAL VASCULAR DISEASE, UNSPECIFIED 08/24/2017 SHALOM RAMÍREZ APRN Ot J44.9 CHRONIC OBSTRUCTIVE PULMONARY DISEASE, U 08/24/2017 SHALOM RAMÍREZ APRN Ot K21.9 GASTRO-ESOPHAGEAL REFLUX DISEASE WITHOUT 08/24/2017 SHALOM RAMÍREZ APRN Ot R07.2 PRECORDIAL PAIN 08/24/2017 SHALOM RAMÍREZ APRN Ot Z68.43 BODY MASS INDEX (BMI) 50-59.9 , ADULT 08/24/2017 SHALOM RAMÍREZ APRN Ot Z79.01 RESIDENTIAL (CURRENT) USE OF ANTICOAGULANT 08/24/2017 SHALOM RAMÍREZ APRN Ot Z79.02 RESIDENTIAL (CURRENT) USE OF ANTITHROMBOTI 08/24/2017 SHALOM RAMÍREZ APRN Ot Z79.51 RESIDENTIAL (CURRENT) USE OF INHALED STERO 08/24/2017 SHALOM RAMÍREZ APRN Ot 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 08/24/2017 SHALOM RAMÍREZ [...] MD Ot I25.110 ATHSCL HEART DISEASE OF [place] COR ART W 08/24/2017 REAGAN MCNEILL MD Ot I77.1 STRICTURE OF ARTERY 08/24/2017 REAGAN MCNEILL MD Ot J45.909 UNSPECIFIED ASTHMA, UNCOMPLICATED 08/24/2017 REAGAN MCNEILL MD Ot R82.90 UNSPECIFIED ABNORMAL FINDINGS IN URINE 08/24/2017 REAGAN MCNEILL MD Ot Z68.43 BODY MASS INDEX (BMI) 50-59.9 , ADULT 08/24/2017 REAGAN MCNEILL MD Ot Z79.01 RESIDENTIAL (CURRENT) USE OF ANTICOAGULANT 08/24/2017 REAGAN MCNEILL [...] MD Ot I25.110 ATHSCL HEART DISEASE OF [place] COR ART W 08/26/2017 REAGAN MCNEILL MD Ot I77.1 STRICTURE OF ARTERY 08/26/2017 REAGAN MCNEILL MD Ot J45.909 UNSPECIFIED ASTHMA, UNCOMPLICATED 08/26/2017 REAGAN MCNEILL MD Ot R82.90 UNSPECIFIED ABNORMAL FINDINGS IN URINE 08/26/2017 REAGAN MCNEILL MD Ot Z68.43 BODY MASS INDEX (BMI) 50-59.9 , ADULT 08/26/2017 REAGAN MCNEILL MD Ot Z79.01 RESIDENTIAL (CURRENT) USE OF ANTICOAGULANT 08/26/2017 REAGAN MCNEILL MD Ot Z86.711 PERSONAL HISTORY OF PULMONARY EMBOLISM 08/26/2017 REAGAN MCNEILL MD, Ot Z86.718 PERSONAL HISTORY OF OTHER VENOUS THROMBO 08/28/2017 MICHAEL WAGNER Ot I10 ESSENTIAL (PRIMARY) HYPERTENSION 08/28/2017 MICHAEL WAGNER Ot 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 08/28/2017 MICHAEL WAGNER Ot R06.09 OTHER FORMS OF DYSPNEA 08/28/2017 MICHAEL WAGNER Ot R07.89 OTHER CHEST PAIN 08/31/2017 REAGAN MCNEILL MD Ot E03.9 HYPOTHYROIDISM, UNSPECIFIED 08/31/2017 REAGAN MCNEILL MD Ot E66.9 OBESITY, UNSPECIFIED 08/31/2017 REAGAN MCNEILL MD Ot E78.5 HYPERLIPIDEMIA, UNSPECIFIED 08/31/2017 REAGAN MCNEILL MD Ot I10 ESSENTIAL (PRIMARY) HYPERTENSION 08/31/2017 REAGAN MCNEILL MD Ot I25.110 ATHSCL HEART DISEASE OF [place] COR ART W 08/31/2017 REAGAN MCNEILL MD Ot I77.1 STRICTURE OF ARTERY 08/31/2017 REAGAN MCNEILL MD Ot J45.909 UNSPECIFIED ASTHMA, UNCOMPLICATED 08/31/2017 REAGAN MCNEILL MD Ot R82.90 UNSPECIFIED ABNORMAL FINDINGS IN URINE 08/31/2017 REAGAN MCNEILL MD Ot Z68.43 BODY MASS INDEX (BMI) 50-59.9 , ADULT 08/31/2017 REAGAN MCNEILL MD Ot Z79.01 RESIDENTIAL (CURRENT) USE OF ANTICOAGULANT 08/31/2017 REAGAN MCNEILL MD Ot Z86.711 PERSONAL HISTORY OF PULMONARY EMBOLISM 08/31/2017 REAGAN MCNEILL MD, Ot Z86.718 PERSONAL HISTORY OF OTHER VENOUS THROMBO 09/04/2017 MICHAEL WAGNER Ot I10 ESSENTIAL (PRIMARY) HYPERTENSION 09/04/2017 MICHAEL WAGNER Ot 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 09/04/2017 MICHAEL WAGNER Ot R06.09 OTHER FORMS OF DYSPNEA 09/04/2017 MICHAEL WAGNER Ot R07.89 OTHER CHEST PAIN 09/05/2017 BARNIDGMadelin DOVIANNEY Ot E03.9 HYPOTHYROIDISM, UNSPECIFIED 09/05/2017 BARNIDGE DOVIANNEY Ot E66.01 MORBID (SEVERE) OBESITY DUE TO EXCESS CA 09/05/2017 BARNIRANJEET DOVIANNEY Ot E78.5 HYPERLIPIDEMIA, UNSPECIFIED 09/05/2017 BARNIDGE DOVIANNEY Ot G47.33 OBSTRUCTIVE SLEEP APNEA (ADULT) (PEDIATR 09/05/2017 BARNIDGE DOVIANNEY Ot I10 ESSENTIAL (PRIMARY) HYPERTENSION 09/05/2017 VIANNEY SMITH DO Ot 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 09/05/2017 VIANNEY SMITH DO Ot I73.9 PERIPHERAL VASCULAR DISEASE, UNSPECIFIED 09/05/2017 BARNIDGVIANNEY Yusuf DO Ot J44.9 CHRONIC OBSTRUCTIVE PULMONARY DISEASE, U 09/05/2017 PAWELARCHANADGVIANNEY Yusuf DO Ot J45.909 UNSPECIFIED ASTHMA, UNCOMPLICATED 09/05/2017 BARNIVIANNEY POLLACK DO Ot K21.9 GASTRO-ESOPHAGEAL REFLUX DISEASE WITHOUT 09/05/2017 BARNIVIANNEY POLLACK DO Ot N39.0 URINARY TRACT INFECTION, SITE NOT SPECIF 09/05/2017 PAWELARCHANAVIANNEY POLLACK DO Ot R07.89 OTHER CHEST PAIN 09/05/2017 PAWELNIVIANNEY POLLACK DO Ot R60.0 LOCALIZED EDEMA 09/05/2017 BARNIDGE DOVIANNEY Ot Z68.43 BODY MASS INDEX (BMI) 50-59.9 , ADULT 09/05/2017 VIANNEY SMITH DO Ot Z79.01 RESIDENTIAL (CURRENT) USE OF ANTICOAGULANT 09/05/2017 VIANNEY SMITH DO Ot 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 09/05/2017 VIANNEY SMITH DO Ot Z79.82 RESIDENTIAL (CURRENT) USE OF ASPIRIN 09/05/2017 VIANNEY SMITH DO Ot 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 09/05/2017 VIANNEY SMITH DO [...] SMITH DO Ot Z88.8 ALLERGY STATUS TO [facility] DRUG/MEDS/BIOL SUB 09/05/2017 VIANNEY SMITH DO [...] DO Ot 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 09/05/2017 VIANNEY SMITH DO Ot I73.9 PERIPHERAL VASCULAR DISEASE, UNSPECIFIED 09/05/2017 VIANNEY SMITH DO Ot J44.9 CHRONIC OBSTRUCTIVE PULMONARY DISEASE, U 09/05/2017 VIANNEY SMITH DO Ot J45.909 UNSPECIFIED ASTHMA, UNCOMPLICATED 09/05/2017 VIANNEY SMITH DO Ot K21.9 GASTRO-ESOPHAGEAL REFLUX DISEASE WITHOUT 09/05/2017 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 09/05/2017 VIANNEY SMITH DO, Ot 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 09/05/2017 [facility] Ot Z82.49 FAMILY HX OF ISCHEM HEART DIS AND OTH DI 09/05/2017 VIANNEY SMITH DO Ot Z85.038 PERSONAL HISTORY OF MALIGNANT NEOPLASM O 09/05/2017 ANDREAVIANNEY Yusuf DO Ot Z86.711 PERSONAL HISTORY OF PULMONARY EMBOLISM 09/05/2017 VIANNEY SMITH DO Ot Z86.718 PERSONAL HISTORY OF OTHER VENOUS THROMBO 09/05/2017 VIANNEY SMITH DO Ot Z87.01 PERSONAL HISTORY OF PNEUMONIA (RECURRENT 09/05/2017 VIANNEY SMITH DO Ot Z88.0 ALLERGY STATUS TO PENICILLIN 09/05/2017 [facility] Ot Z88.8 ALLERGY STATUS TO [facility] DRUG/MEDS/BIOL SUB 09/05/2017 VIANNEY SMITH DO Ot Z91.048 OTHER NONMEDICINAL SUBSTANCE ALLERGY STA 09/05/2017 ANDREAVIANNEY Yusuf DO Ot Z95.5 PRESENCE OF CORONARY ANGIOPLASTY IMPLANT 09/27/2017 CHARITO NAM, REAGAN Balderas Ot Z51.81 ENCOUNTER FOR THERAPEUTIC DRUG LEVEL MON 09/27/2017 REAGAN MCNEILL MD Ot Z79.01 RESIDENTIAL (CURRENT) USE OF ANTICOAGULANT 09/27/2017 REAGAN MCNEILL MD Ot Z86.711 PERSONAL HISTORY OF PULMONARY EMBOLISM 01/04/2018 REAGAN MCNEILL MD Ot E03.9 HYPOTHYROIDISM, UNSPECIFIED 01/04/2018 REAGAN MCNEILL MD Ot E66.9 OBESITY, UNSPECIFIED 01/04/2018 REAGAN MCNEILL MD Ot E78.5 HYPERLIPIDEMIA, UNSPECIFIED 01/04/2018 REAGAN MCNEILL MD Ot I10 ESSENTIAL (PRIMARY) HYPERTENSION 01/04/2018 REAGAN MCNEILL MD Ot I25.110 ATHSCL HEART DISEASE OF [place] COR ART W 01/04/2018 REAGAN MCNEILL MD Ot I77.1 STRICTURE OF ARTERY 01/04/2018 REAGAN MCNEILL MD Ot J45.909 UNSPECIFIED ASTHMA, UNCOMPLICATED 01/04/2018 REAGAN MCNEILL MD Ot R82.90 UNSPECIFIED ABNORMAL FINDINGS IN URINE 01/04/2018 REAGAN MCNEILL MD Ot Z68.43 BODY MASS INDEX (BMI) 50-59.9 , ADULT 01/04/2018 REAGAN MCNEILL MD Ot 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 01/04/2018 REAGAN MCNEILL [...] MD Ot I25.110 ATHSCL HEART DISEASE OF [place] COR ART W 04/16/2018 REAGAN MCNEILL MD Ot I77.1 STRICTURE OF ARTERY 04/16/2018 REAGAN MCNEILL MD Ot J45.909 UNSPECIFIED ASTHMA, UNCOMPLICATED 04/16/2018 REAGAN MCNEILL MD Ot R82.90 UNSPECIFIED ABNORMAL FINDINGS IN URINE 04/16/2018 REAGAN MCNEILL MD, Ot Z68.43 BODY MASS INDEX (BMI) 50-59.9 , ADULT 04/16/2018 REAGAN MCNEILL MD, Ot Z79.01 RESIDENTIAL (CURRENT) USE OF ANTICOAGULANT 04/16/2018 REAGAN MCNEILL MD, Ot Z86.711 PERSONAL HISTORY OF PULMONARY EMBOLISM 04/16/2018 REAGAN MCNEILL MD, Ot Z86.718 PERSONAL HISTORY OF OTHER VENOUS THROMBO 07/09/2018 DEWEY PURDY MD Ot E03.9 HYPOTHYROIDISM, UNSPECIFIED 07/09/2018 DEWEY PURDY MD, Ot E66.01 MORBID (SEVERE) OBESITY DUE TO EXCESS CA 07/09/2018 DEWEY PURDY MD, Ot E78.00 PURE HYPERCHOLESTEROLEMIA, UNSPECIFIED 07/09/2018 DEWEY PURDY MD, Ot G47.30 SLEEP APNEA, UNSPECIFIED 07/09/2018 DEWEY PURDY MD Ot I10 ESSENTIAL (PRIMARY) HYPERTENSION 07/09/2018 DEWEY PURDY MD, Ot 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 07/09/2018 DEWEY PURDY MD Ot I73.9 PERIPHERAL VASCULAR DISEASE, UNSPECIFIED 07/09/2018 DEWEY PURDY MD, Ot J44.9 CHRONIC OBSTRUCTIVE PULMONARY DISEASE, U 07/09/2018 DEWEY PURDY MD Ot R55 SYNCOPE AND COLLAPSE 07/09/2018 DEWEY PURDY MD Ot Z79.01 RESIDENTIAL (CURRENT) USE OF ANTICOAGULANT 07/09/2018 DEWEY PURDY MD Ot 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 07/09/2018 DEWEY PURDY MD Ot Z79.51 STENCIL 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 (CURRENT) USE OF INHALED STERO 07/09/2018 DEWEY PURDY MD Ot Z79.82 RESIDENTIAL (CURRENT) USE OF ASPIRIN 07/09/2018 DEWEY PURDY MD Ot Z80.0 FAMILY HISTORY OF MALIGNANT NEOPLASM OF 07/09/2018 DEWEY PURDY MD Ot Z82.49 FAMILY HX OF ISCHEM HEART DIS AND OTH DI 07/09/2018 DEWEY PURDY MD Ot Z85.038 PERSONAL HISTORY OF MALIGNANT NEOPLASM O 07/09/2018 DEWEY PURDY MD Ot Z86.718 PERSONAL HISTORY OF OTHER VENOUS THROMBO 07/09/2018 RAJWINDER NAM, DEWEY Patel Ot Z87.01 PERSONAL HISTORY OF PNEUMONIA (RECURRENT 07/09/2018 RAJWINDER NAM, DEWEY Patel Ot Z87.442 PERSONAL HISTORY OF URINARY CALCULI 07/09/2018 DEWEY PURDY MD Ot Z87.448 PERSONAL HISTORY OF OTHER DISEASES OF UR 07/09/2018 DEWEY PURDY MD Ot Z88.0 ALLERGY STATUS TO PENICILLIN 07/09/2018 DEWEY PURDY MD Ot Z88.4 ALLERGY STATUS TO ANESTHETIC AGENT STATU 07/09/2018 DEWEY PURDY MD Ot Z88.8 ALLERGY STATUS TO OTH DRUG/MEDS/BIOL SUB 07/09/2018 DEWEY PURDY MD Ot Z90.49 ACQUIRED ABSENCE OF OTHER SPECIFIED PART 07/09/2018 DEWEY PURDY MD Ot Z90.89 ACQUIRED ABSENCE OF OTHER ORGANS 07/09/2018 DEWEY PURDY MD Ot Z91.048 OTHER NONMEDICINAL SUBSTANCE ALLERGY STA 07/09/2018 DEWEY PURDY MD Ot Z95.5 PRESENCE OF CORONARY ANGIOPLASTY IMPLANT 07/09/2018 DEWEY PURDY MD Ot Z97.5 PRESENCE OF (INTRAUTERINE) CONTRACEPTIVE 07/09/2018 DEWEY PURDY MD Ot Z98.890 OTHER SPECIFIED POSTPROCEDURAL STATES 07/09/2018 CHARLES FREED Ot 397.0 TRICUSPID VALVE [...] WAGNER Ot 786.50 CHEST PAIN NOS 07/09/2018 CAYDEN MOYA CHAS Amanda Ot 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 07/09/2018 CAYDEN MOYACHAS Ot 625.9 FEM GENITAL SYMPTOMS NOS 07/09/2018 CAYDEN MOYACHAS Ot 626.8 MENSTRUAL DISORDER NEC 07/09/2018 CAYDEN MOYACHAS Ot 627.1 POSTMENOPAUSAL BLEEDING 07/09/2018 CAYDEN MOYA CHAS Amanda Ot V72.84 EXAM PRE-OPERATIVE NOS 07/09/2018 CAYDEN MOYACHAS Ot V74.8 SCREEN-BACTERIAL DIS NEC 07/09/2018 CAYDEN MOYACHAS Ot 789.03 ABDOMINAL PAIN, RIGHT LOWER QUADRANT 07/09/2018 CHARLES FREED Ot 729.5 PAIN IN LIMB 07/09/2018 CATERINA SHAH DO Ot 278.1 LOCALIZED ADIPOSITY 07/09/2018 CATERINA SHAH DO Ot 493.90 ASTHMA, UNSPECIFIED 07/09/2018 CATERINA SHAH DO Ot 786.09 RESPIRATORY ABNORM NEC 07/09/2018 BALDEV LITTLEJOHN DO Ot 569.3 RECTAL ANAL HEMORRHAGE 07/09/2018 BALDEV LITTLEJOHN DO Ot V72.84 EXAM PRE-OPERATIVE NOS 07/09/2018 CAYDEN MOYACHAS Ot 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 07/09/2018 CAYDEN MOYACHAS Ot 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 ENDOMETRIAL HYPERPLASIA WITHOUT 07/09/2018 CAYDEN CHAS MOYA Ot V25.42 IUD SURVEILLANCE 07/09/2018 CAYDEN CHAS MOYA Ot R10.2 PELVIC AND PERINEAL PAIN 07/09/2018 BALDEV LITTLEJOHN DO Ot R10.2 PELVIC AND PERINEAL PAIN 07/09/2018 BALDEV LITTLEJOHN DO Ot R10.10 UPPER ABDOMINAL PAIN, UNSPECIFIED 07/09/2018 BALDEV LITTLEJOHN DO Ot Z01.818 ENCOUNTER FOR OTHER PREPROCEDURAL EXAMIN 07/09/2018 CAYDEN CHAS MOYA Ot D25.9 LEIOMYOMA OF UTERUS, UNSPECIFIED 07/09/2018 CAYDEN CHAS MOYA Ot Z01.812 ENCOUNTER FOR PREPROCEDURAL LABORATORY E 07/09/2018 CAYDEN CHAS MOYA Ot Z11.2 ENCOUNTER FOR SCREENING FOR OTHER BACTER 07/09/2018 INFANTE, CHEN A INTEGRATION SOFTWARE DEVELOPER Ot J06.9 ACUTE UPPER RESPIRATORY INFECTION, UNSPE 07/09/2018 MIGDALIA JIMENEZ DO Ot 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 07/09/2018 MIGDALIA JIMENEZ DO Ot E03.9 HYPOTHYROIDISM, UNSPECIFIED 07/09/2018 MIGDALIA JIMENEZ DO Ot Z86.010 PERSONAL HISTORY OF COLONIC POLYPS 07/09/2018 PAYAL VIGIL INTEGRATION SOFTWARE DEVELOPER Ot M54.6 PAIN IN THORACIC SPINE 07/09/2018 KAVYA PATRICK INTEGRATION SOFTWARE DEVELOPER Ot E66.01 MORBID (SEVERE) OBESITY DUE TO EXCESS CA 07/09/2018 KAVYA PATRICK INTEGRATION SOFTWARE DEVELOPER Ot R10.84 GENERALIZED ABDOMINAL PAIN 07/09/2018 KAVYA PATRICK INTEGRATION SOFTWARE DEVELOPER Ot Z68.43 BODY MASS INDEX (BMI) 50-59.9 , ADULT 07/09/2018 REAGAN MCNEILL MD, Ot Z51.81 ENCOUNTER FOR THERAPEUTIC DRUG LEVEL MON 07/09/2018 REAGAN MCNEILL MD, Ot Z79.01 RESIDENTIAL (CURRENT) USE OF ANTICOAGULANT 07/09/2018 REAGAN MCNEILL MD, Ot Z86.711 PERSONAL HISTORY OF PULMONARY EMBOLISM 07/09/2018 PAYAL VIGIL INTEGRATION SOFTWARE DEVELOPER Ot M54.2 CERVICALGIA 07/09/2018 PAYAL VIGIL INTEGRATION SOFTWARE DEVELOPER Ot Z53.29 PROC/TRTMT NOT CRD OUT BEC PT DECISION F 07/09/2018 PAYAL VIGIL INTEGRATION SOFTWARE DEVELOPER Ot J98.11 ATELECTASIS 07/09/2018 PAYAL VIGIL INTEGRATION SOFTWARE DEVELOPER Ot Z87.442 PERSONAL HISTORY OF URINARY CALCULI 07/09/2018 MICHAEL WAGNER Ot I10 ESSENTIAL (PRIMARY) HYPERTENSION 07/09/2018 MICHAEL WAGNER Ot 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 07/09/2018 MICHAEL WAGNER Ot R06.09 OTHER FORMS OF DYSPNEA 07/09/2018 MICHAEL WAGNER Ot R07.89 OTHER CHEST PAIN 07/09/2018 REAGAN MCNEILL MD, Ot Z51.81 ENCOUNTER FOR THERAPEUTIC DRUG LEVEL MON 07/09/2018 REAGAN MCNEILL MD, Ot 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 07/09/2018 REAGAN MCNEILL MD Ot Z86.711 PERSONAL HISTORY OF PULMONARY EMBOLISM 07/26/2018 REAGAN MCNEILL MD Ot Z51.81 ENCOUNTER FOR THERAPEUTIC DRUG LEVEL MON 07/26/2018 REAGAN MCNEILL MD Ot 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 07/26/2018 REAGAN MCNEILL MD Ot Z86.711 PERSONAL HISTORY OF PULMONARY EMBOLISM 07/26/2018 REAGAN MCNEILL MD Ot Z51.81 ENCOUNTER FOR THERAPEUTIC DRUG LEVEL MON 07/26/2018 REAGAN MCNEILL MD Ot Z79.01 RESIDENTIAL (CURRENT) USE OF ANTICOAGULANT 07/26/2018 REAGAN MCNEILL MD Ot Z86.711 PERSONAL HISTORY OF PULMONARY EMBOLISM 07/26/2018 REAGAN MCNEILL MD Ot Z51.81 ENCOUNTER FOR THERAPEUTIC DRUG LEVEL MON 07/26/2018 REAGAN MCNEILL MD Ot 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 07/26/2018 REAGAN MCNEILL MD Ot Z86.711 PERSONAL HISTORY OF PULMONARY EMBOLISM 07/26/2018 REAGAN MCNEILL MD Ot Z51.81 ENCOUNTER FOR THERAPEUTIC DRUG LEVEL MON 07/26/2018 REAGAN MCNEILL MD Ot Z79.01 RESIDENTIAL (CURRENT) USE OF ANTICOAGULANT 07/26/2018 REAGAN MCNEILL MD Ot Z86.711 PERSONAL HISTORY OF PULMONARY EMBOLISM 07/27/2018 REAGAN MCNEILL MD Ot Z51.81 ENCOUNTER FOR THERAPEUTIC DRUG LEVEL MON 07/27/2018 REAGAN MCNEILL MD Ot Z79.01 RESIDENTIAL (CURRENT) USE OF ANTICOAGULANT 07/27/2018 REAGAN MCNEILL MD Ot Z86.711 PERSONAL HISTORY OF PULMONARY EMBOLISM 07/27/2018 REAGAN MCNEILL MD Ot Z51.81 ENCOUNTER FOR THERAPEUTIC DRUG LEVEL MON 07/27/2018 REAGAN MCNEILL MD Ot 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 07/27/2018 REAGAN MCNEILL MD Ot Z86.711 PERSONAL HISTORY OF PULMONARY EMBOLISM 07/27/2018 AMANDEEP HAMMOND MD Ot E03.9 HYPOTHYROIDISM, UNSPECIFIED 07/27/2018 AMANDEEP HAMMOND MD Ot E78.00 PURE HYPERCHOLESTEROLEMIA, UNSPECIFIED 07/27/2018 AMANDEEP HAMMOND MD Ot G43.909 MIGRAINE, UNSP, NOT INTRACTABLE, WITHOUT 07/27/2018 AMANDEEP HAMMOND MD, Ot 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 07/27/2018 AMANDEEP HAMMOND MD, Ot J45.909 UNSPECIFIED ASTHMA, UNCOMPLICATED 07/27/2018 AMANDEEP HAMMOND MD, Ot K21.9 GASTRO-ESOPHAGEAL REFLUX DISEASE WITHOUT 07/27/2018 AMANDEEP HAMMOND MD, Ot M79.671 PAIN IN RIGHT FOOT 07/27/2018 AMANDEEP HAMMOND MD, Ot S96.911A STRAIN OF UNSP MSL/TND AT ANK/FT LEVEL, 07/27/2018 AMANDEEP HAMMOND MD, Ot W22.8XXA STRIKING AGAINST OR STRUCK BY OTHER OBJE 07/27/2018 AMANDEEP HAMMOND MD, Ot Z79.01 RESIDENTIAL (CURRENT) USE OF ANTICOAGULANT 07/27/2018 AMANDEEP HAMMOND MD, Ot 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 07/27/2018 AMANDEEP HAMMOND MD, Ot Z87.442 PERSONAL HISTORY OF URINARY CALCULI 07/27/2018 AMANDEEP HAMMOND MD, Ot Z88.0 ALLERGY STATUS TO PENICILLIN 07/27/2018 AMANDEEP HAMMOND MD, Ot Z88.5 ALLERGY STATUS TO NARCOTIC AGENT STATUS 07/27/2018 AMANDEEP HAMMOND MD, Ot Z88.6 ALLERGY STATUS TO ANALGESIC AGENT STATUS 07/27/2018 AMANDEEP HAMMOND MD, Ot Z88.8 ALLERGY STATUS TO OTH DRUG/MEDS/BIOL SUB 07/27/2018 AMANDEEP HAMMOND MD, Ot Z90.49 ACQUIRED ABSENCE OF OTHER SPECIFIED PART 07/27/2018 AMANDEEP HAMMOND MD, Ot Z90.710 ACQUIRED ABSENCE OF BOTH CERVIX AND UTER 07/27/2018 AMANDEEP HAMMOND MD, Ot Z91.030 BEE ALLERGY STATUS 07/27/2018 AMANDEEP HAMMOND MD, Ot Z95.5 PRESENCE OF CORONARY ANGIOPLASTY IMPLANT 07/28/2018 AMANDEEP HAMMOND MD, Ot E03.9 HYPOTHYROIDISM, UNSPECIFIED 07/28/2018 AMANDEEP HAMMOND MD, Ot E78.00 PURE HYPERCHOLESTEROLEMIA, UNSPECIFIED 07/28/2018 AMANDEEP HAMMOND MD, Ot G43.909 MIGRAINE, UNSP, NOT INTRACTABLE, WITHOUT 07/28/2018 AMANDEEP HAMMOND MD, Ot 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 07/28/2018 AMANDEEP HAMMOND MD, Ot J45.909 UNSPECIFIED ASTHMA, UNCOMPLICATED 07/28/2018 AMANDEEP HAMMOND MD, Ot K21.9 GASTRO-ESOPHAGEAL REFLUX DISEASE WITHOUT 07/28/2018 AMANDEEP HAMMOND MD, Ot M79.671 PAIN IN RIGHT FOOT 07/28/2018 AMANDEEP HAMMOND MD, Ot S96.911A STRAIN OF UNSP MSL/TND AT ANK/FT LEVEL, 07/28/2018 AMANDEEP HAMMOND MD, Ot W22.8XXA STRIKING AGAINST OR STRUCK BY OTHER OBJE 07/28/2018 AMANDEEP HAMMOND MD, Ot 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 07/28/2018 AMANDEEP HAMMOND MD, Ot 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 07/28/2018 AMANDEEP HAMMOND MD, Ot Z87.442 PERSONAL HISTORY OF URINARY CALCULI 07/28/2018 AMANDEEP HAMMOND MD, Ot Z88.0 ALLERGY STATUS TO PENICILLIN 07/28/2018 AMANDEEP HAMMOND MD, Ot Z88.5 ALLERGY STATUS TO NARCOTIC AGENT STATUS 07/28/2018 AMANDEEP HAMMOND MD, Ot Z88.6 ALLERGY STATUS TO ANALGESIC AGENT STATUS 07/28/2018 AMANDEEP HAMMOND MD, Ot Z88.8 ALLERGY STATUS TO OTH DRUG/MEDS/BIOL SUB 07/28/2018 AMANDEEP HAMMOND MD, Ot Z90.49 ACQUIRED ABSENCE OF OTHER SPECIFIED PART 07/28/2018 AMANDEEP HAMMOND MD, Ot Z90.710 ACQUIRED ABSENCE OF BOTH CERVIX AND UTER 07/28/2018 AMANDEEP HAMMOND MD, Ot Z91.030 BEE ALLERGY STATUS 07/28/2018 AMANDEEP HAMMOND MD, Ot Z95.5 PRESENCE OF CORONARY ANGIOPLASTY IMPLANT 08/12/2018 MAYTENEVA INTEGRATION SOFTWARE DEVELOPER Ot R42 DIZZINESS AND GIDDINESS 08/12/2018 MAYTE, ENVA D INTEGRATION SOFTWARE DEVELOPER Ot R55 SYNCOPE AND COLLAPSE 08/12/2018 MAYTE, NEVA D INTEGRATION SOFTWARE DEVELOPER Ot R42 DIZZINESS AND GIDDINESS 08/12/2018 MAYTE, NEVA Blank INTEGRATION SOFTWARE DEVELOPER Ot R55 SYNCOPE AND COLLAPSE 08/12/2018 MAYTE, NEVA D INTEGRATION SOFTWARE DEVELOPER Ot R42 DIZZINESS AND GIDDINESS 08/12/2018 NEVA HU INTEGRATION SOFTWARE DEVELOPER Ot R55 SYNCOPE AND COLLAPSE 08/17/2018 NEVA HU INTEGRATION SOFTWARE DEVELOPER Ot R42 DIZZINESS AND GIDDINESS 08/17/2018 NEVA HU INTEGRATION SOFTWARE DEVELOPER Ot R55 SYNCOPE AND COLLAPSE 09/06/2018 NEVA HU INTEGRATION SOFTWARE DEVELOPER Ot R42 DIZZINESS AND GIDDINESS 09/06/2018 NEVA HU INTEGRATION SOFTWARE DEVELOPER Ot R55 SYNCOPE AND COLLAPSE 09/10/2018 NEVA HU INTEGRATION SOFTWARE DEVELOPER Ot R42 DIZZINESS AND GIDDINESS 09/10/2018 NEVA HU INTEGRATION SOFTWARE DEVELOPER Ot R55 SYNCOPE AND COLLAPSE 09/12/2018 DIANA HU Ot M79.671 PAIN IN RIGHT FOOT 09/12/2018 DIANA HU Ot Z87.828 PERSONAL HISTORY OF OTH (HEALED) PHYSICA 09/30/2018 DIANA HU Ot M79.671 PAIN IN RIGHT FOOT 09/30/2018 DIANA HU Ot Z87.828 PERSONAL HISTORY OF OTH (HEALED) PHYSICA 10/05/2018 ALEJANDRA MARTIN DO, Ot E03.9 HYPOTHYROIDISM, UNSPECIFIED 10/05/2018 ALEJANDRA MARTIN DO, Ot E78.00 PURE HYPERCHOLESTEROLEMIA, UNSPECIFIED 10/05/2018 ALEJANDRA MARTIN DO, Ot G43.909 MIGRAINE, UNSP, NOT INTRACTABLE, WITHOUT 10/05/2018 ALEJANDRA MARTIN DO, Ot G47.30 SLEEP APNEA, UNSPECIFIED 10/05/2018 ALEJANDRA MARTIN DO, Ot G62.9 POLYNEUROPATHY, UNSPECIFIED 10/05/2018 ALEJANDRA MARTIN DO, Ot 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 10/05/2018 ALEJANDRA MARTIN DO, Ot J45.909 UNSPECIFIED ASTHMA, UNCOMPLICATED 10/05/2018 ALEJANDRA MARTIN DO, Ot K21.9 GASTRO-ESOPHAGEAL REFLUX DISEASE WITHOUT 10/05/2018 ALEJANDRA MARTIN DO, Ot R07.89 OTHER CHEST PAIN 10/05/2018 ALEJANDRA MARTIN DO, Ot R07.9 CHEST PAIN, UNSPECIFIED 10/05/2018 ALEJANDRA MARTIN DO, Ot 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 10/05/2018 ALEJANDRA MARTIN DO, Ot Z79.02 RESIDENTIAL (CURRENT) USE OF ANTITHROMBOTI 10/05/2018 ALEJANDRA MARTIN DO, Ot Z79.52 STENCIL 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 (CURRENT) USE OF SYSTEMIC STER 10/05/2018 ALEJANDRA MARTIN DO, Ot 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 10/05/2018 ALEJANDRA MARTIN DO, Ot Z80.0 FAMILY HISTORY OF MALIGNANT NEOPLASM OF 10/05/2018 ALEJANDRA MARTIN DO, Ot Z82.49 FAMILY HX OF ISCHEM HEART DIS AND OTH DI 10/05/2018 ALEJANDRA MARTIN DO, Ot Z85.038 PERSONAL HISTORY OF MALIGNANT NEOPLASM O 10/05/2018 ALEJANDRA MARTIN DO, Ot Z87.442 PERSONAL HISTORY OF URINARY CALCULI 10/05/2018 ALEJANDRA MARTIN DO, Ot Z87.448 PERSONAL HISTORY OF OTHER DISEASES OF UR 10/05/2018 ALEJANDRA MARTIN DO, Ot Z88.0 ALLERGY STATUS TO PENICILLIN 10/05/2018 ALEJANDRA MARTIN DO, Ot Z88.7 ALLERGY STATUS TO SERUM AND VACCINE STAT 10/05/2018 ALEJANDRA MARTIN DO, Ot Z88.8 ALLERGY STATUS TO [facility] DRUG/MEDS/BIOL SUB 10/05/2018 ALEJANDRA MARTIN DO, Ot Z90.49 ACQUIRED ABSENCE OF OTHER SPECIFIED PART 10/05/2018 ALEJANDRA MARTIN DO, Ot Z90.710 ACQUIRED ABSENCE OF BOTH CERVIX AND UTER 10/05/2018 ALEJANDRA MARTIN DO, Ot Z91.048 OTHER NONMEDICINAL SUBSTANCE ALLERGY STA 10/05/2018 ALEJANDRA MARTIN DO, Ot Z95.5 PRESENCE OF CORONARY ANGIOPLASTY IMPLANT 10/05/2018 ALEJANDRA MARTIN DO, Ot Z98.890 OTHER SPECIFIED POSTPROCEDURAL STATES 10/07/2018 SHALOM RAMÍREZ APRN Ot E03.9 HYPOTHYROIDISM, UNSPECIFIED 10/07/2018 SHALOM RAMÍREZ APRN Ot E66.01 MORBID (SEVERE) OBESITY DUE TO EXCESS CA 10/07/2018 SHALOM RAMÍREZ APRN Ot E78.00 PURE HYPERCHOLESTEROLEMIA, UNSPECIFIED 10/07/2018 SHALOM RAMÍREZ APRN Ot G47.30 SLEEP APNEA, UNSPECIFIED 10/07/2018 SHALOM RAMÍREZ APRN Ot I10 ESSENTIAL (PRIMARY) HYPERTENSION 10/07/2018 SHALOM RAMÍREZ APRN Ot I20.8 OTHER FORMS OF ANGINA PECTORIS 10/07/2018 SHALOM RAMÍREZ APRN Ot 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 10/07/2018 SHALOM RAMÍREZ APRN Ot I73.9 PERIPHERAL VASCULAR DISEASE, UNSPECIFIED 10/07/2018 SHALOM RAMÍREZ APRN Ot J44.9 CHRONIC OBSTRUCTIVE PULMONARY DISEASE, U 10/07/2018 SHALOM RAMÍREZ APRN Ot K21.9 GASTRO-ESOPHAGEAL REFLUX DISEASE WITHOUT 10/07/2018 SHALOM RAMÍREZ APRN Ot R07.2 PRECORDIAL PAIN 10/07/2018 SHALOM RAMÍREZ APRN Ot Z68.43 BODY MASS INDEX (BMI) 50-59.9 , ADULT 10/07/2018 SHALOM RAMÍREZ APRN Ot Z79.01 RESIDENTIAL (CURRENT) USE OF ANTICOAGULANT 10/07/2018 SHALOM RAMÍREZ APRN Ot Z79.02 RESIDENTIAL (CURRENT) USE OF ANTITHROMBOTI 10/07/2018 SHALOM RAMÍREZ APRN Ot Z79.51 STENCIL 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 (CURRENT) USE OF INHALED STERO 10/07/2018 SHALOM RAMÍREZ APRN Ot Z79.82 RESIDENTIAL (CURRENT) USE OF ASPIRIN 10/07/2018 SHALOM RAMÍREZ APRN Ot Z80.0 FAMILY HISTORY OF MALIGNANT NEOPLASM OF 10/07/2018 SHALOM RAMÍREZ APRN Ot Z82.49 FAMILY HX OF ISCHEM HEART DIS AND OTH DI 10/07/2018 SHALOM RAMÍREZ APRN Ot Z85.038 PERSONAL HISTORY OF MALIGNANT NEOPLASM O 10/07/2018 SHALOM RAMÍREZ APRN Ot Z86.718 PERSONAL HISTORY OF OTHER VENOUS THROMBO 10/07/2018 SHALOM RAMÍREZ APRN Ot Z87.01 PERSONAL HISTORY OF PNEUMONIA (RECURRENT 10/07/2018 SHALOM RAMÍREZ APRN Ot Z87.442 PERSONAL HISTORY OF URINARY CALCULI 10/07/2018 SHALOM RAMÍREZ APRN Ot Z87.448 PERSONAL HISTORY OF OTHER DISEASES OF UR 10/07/2018 SHALOM RAMÍREZ APRN Ot Z88.0 ALLERGY STATUS TO PENICILLIN 10/07/2018 SHALOM RAMÍREZ APRN Ot Z88.8 ALLERGY STATUS TO OT DRUG/MEDS/BIOL SUB 10/07/2018 SHALOM RAMÍREZ APRN Ot Z90.49 ACQUIRED ABSENCE OF OTHER SPECIFIED PART 10/07/2018 SHALOM RAMÍREZ APRN Ot Z90.710 ACQUIRED ABSENCE OF BOTH CERVIX AND UTER 10/07/2018 SHALOM RAMÍREZ APRN Ot Z90.89 ACQUIRED ABSENCE OF OTHER ORGANS 10/07/2018 SHALOM RAMÍREZ APRN Ot Z91.048 OTHER NONMEDICINAL SUBSTANCE ALLERGY STA 10/07/2018 SHALOM RAMÍREZ APRN Ot Z97.5 PRESENCE OF (INTRAUTERINE) CONTRACEPTIVE 10/08/2018 ALEJANDRA MARTIN DO, Ot E03.9 HYPOTHYROIDISM, UNSPECIFIED 10/08/2018 ALEJANDRA MARTIN DO, Ot E78.00 PURE HYPERCHOLESTEROLEMIA, UNSPECIFIED 10/08/2018 ALEJANDRA MARTIN DO, Ot G43.909 MIGRAINE, UNSP, NOT INTRACTABLE, WITHOUT 10/08/2018 ALEJANDRA MARTIN DO, Ot G47.30 SLEEP APNEA, UNSPECIFIED 10/08/2018 ALEJANDRA MARTIN DO, Ot G62.9 POLYNEUROPATHY, UNSPECIFIED 10/08/2018 ALEJANDRA MARTIN DO, Ot 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 10/08/2018 ALEJANDRA MARTIN DO, Ot J45.909 UNSPECIFIED ASTHMA, UNCOMPLICATED 10/08/2018 ALEJANDRA MARTIN DO, Ot K21.9 GASTRO-ESOPHAGEAL REFLUX DISEASE WITHOUT 10/08/2018 ALEJANDRA MARTIN DO, Ot R07.89 OTHER CHEST PAIN 10/08/2018 ALEJANDRA MARTIN DO, Ot R07.9 CHEST PAIN, UNSPECIFIED 10/08/2018 ALEJANDRA MARTIN DO, Ot 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 10/08/2018 ALEJANDRA MARTIN DO, Ot 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 10/08/2018 ALEJANDRA MARTIN DO, Ot Z79.52 RESIDENTIAL (CURRENT) USE OF SYSTEMIC STER 10/08/2018 ALEJANDRA MARTIN DO, Ot 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 10/08/2018 ALEJANDRA MARTIN DO, Ot Z80.0 FAMILY HISTORY OF MALIGNANT NEOPLASM OF 10/08/2018 ALEJANDRA MARTIN DO, Ot Z82.49 FAMILY HX OF ISCHEM HEART DIS AND OTH DI 10/08/2018 ALEJANDRA MARTIN DO, Ot Z85.038 PERSONAL HISTORY OF MALIGNANT NEOPLASM O 10/08/2018 ALEJANDRA MARTIN DO, Ot Z87.442 PERSONAL HISTORY OF URINARY CALCULI 10/08/2018 ALEJANDRA MARTIN DO, Ot Z87.448 PERSONAL HISTORY OF OTHER DISEASES OF UR 10/08/2018 ALEJANDRA MARTIN DO, Ot Z88.0 ALLERGY STATUS TO PENICILLIN 10/08/2018 ALEJANDRA MARTIN DO, Ot Z88.7 ALLERGY STATUS TO SERUM AND VACCINE STAT 10/08/2018 ALEJANDRA MARTIN DO, Ot Z88.8 ALLERGY STATUS TO OTH DRUG/MEDS/BIOL SUB 10/08/2018 ALEJANDRA MARTIN DO, Ot Z90.49 ACQUIRED ABSENCE OF OTHER SPECIFIED PART 10/08/2018 ALEJANDRA MARTIN DO, Ot Z90.710 ACQUIRED ABSENCE OF BOTH CERVIX AND UTER 10/08/2018 ALEJANDRA MARTIN DO, Ot Z91.048 OTHER NONMEDICINAL SUBSTANCE ALLERGY STA 10/08/2018 ALEJANDRA MARTIN DO, Ot Z95.5 PRESENCE OF CORONARY ANGIOPLASTY IMPLANT 10/08/2018 ALEJANDRA MARTIN DO, Ot Z98.890 OTHER SPECIFIED POSTPROCEDURAL STATES 10/11/2018 ALEJANDRA MARTIN DO, Ot E03.9 HYPOTHYROIDISM, UNSPECIFIED 10/11/2018 ALEJANDRA MARTIN DO, Ot E78.00 PURE HYPERCHOLESTEROLEMIA, UNSPECIFIED 10/11/2018 ALEJANDRA MARTIN DO, Ot G43.909 MIGRAINE, UNSP, NOT INTRACTABLE, WITHOUT 10/11/2018 ALEJANDRA MARTIN DO, Ot G47.30 SLEEP APNEA, UNSPECIFIED 10/11/2018 ALEJANDRA MARTIN DO, Ot G62.9 POLYNEUROPATHY, UNSPECIFIED 10/11/2018 ALEJANDRA MARTIN DO, Ot 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 10/11/2018 ALEJANDRA MARTIN DO, Ot J45.909 UNSPECIFIED ASTHMA, UNCOMPLICATED 10/11/2018 ALEJANDRA MARTIN DO, Ot K21.9 GASTRO-ESOPHAGEAL REFLUX DISEASE WITHOUT 10/11/2018 ALEJANDRA MARTIN DO, Ot R07.89 OTHER CHEST PAIN 10/11/2018 ALEJANDRA MARTIN DO, Ot R07.9 CHEST PAIN, UNSPECIFIED 10/11/2018 ALEJANDRA MARTIN DO, Ot 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 10/11/2018 ALEJANDRA MARTIN DO, Ot 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 10/11/2018 ALEJANDRA MARTIN DO, Ot Z79.52 STENCIL 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 (CURRENT) USE OF SYSTEMIC STER 10/11/2018 ALEJANDRA MARTIN DO, Ot Z79.82 RESIDENTIAL (CURRENT) USE OF ASPIRIN 10/11/2018 ALEJANDRA MARTIN DO, Ot Z80.0 FAMILY HISTORY OF MALIGNANT NEOPLASM OF 10/11/2018 ALEJANDRA MARTIN DO, Ot Z82.49 FAMILY HX OF ISCHEM HEART DIS AND OTH DI 10/11/2018 ALEJANDRA MARTIN DO, Ot Z85.038 PERSONAL HISTORY OF MALIGNANT NEOPLASM O 10/11/2018 ALEJANDRA MARTIN DO, Ot Z87.442 PERSONAL HISTORY OF URINARY CALCULI 10/11/2018 ALEJANDRA MARTIN DO, Ot Z87.448 PERSONAL HISTORY OF OTHER DISEASES OF UR 10/11/2018 ALEJANDRA MARTIN DO, Ot Z88.0 ALLERGY STATUS TO PENICILLIN 10/11/2018 ALEJANDRA MARTIN DO, Ot Z88.7 ALLERGY STATUS TO SERUM AND VACCINE STAT 10/11/2018 ALEJANDRA MARTIN DO, Ot Z88.8 ALLERGY STATUS TO [facility] DRUG/MEDS/BIOL SUB 10/11/2018 ALEJANDRA MARTIN DO, Ot Z90.49 ACQUIRED ABSENCE OF OTHER SPECIFIED PART 10/11/2018 ALEJANDRA MARTIN DO, Ot Z90.710 ACQUIRED ABSENCE OF BOTH CERVIX AND UTER 10/11/2018 ALEJANDRA MARTIN DO, Ot Z91.048 OTHER NONMEDICINAL SUBSTANCE ALLERGY STA 10/11/2018 ALEJANDRA MARTIN DO, Ot Z95.5 PRESENCE OF CORONARY ANGIOPLASTY IMPLANT 10/11/2018 ALEJANDRA MARTIN DO, Ot Z98.890 OTHER SPECIFIED POSTPROCEDURAL STATES 11/05/2018 REAGAN MCNEILL MD, Ot Z51.81 ENCOUNTER FOR THERAPEUTIC DRUG LEVEL MON 11/05/2018 REAGAN MCNEILL MD, Ot 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 11/05/2018 REAGAN MCNEILL MD, Ot Z86.711 PERSONAL HISTORY OF PULMONARY EMBOLISM 11/05/2018 REAGAN MCNEILL MD, Ot Z51.81 ENCOUNTER FOR THERAPEUTIC DRUG LEVEL MON 11/05/2018 REAGAN MCNEILL MD, Ot 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 11/05/2018 REAGAN MCNEILL MD, Ot Z86.711 PERSONAL HISTORY OF PULMONARY EMBOLISM 11/08/2018 NORIS DOHERTY DO Ot E03.9 HYPOTHYROIDISM, UNSPECIFIED 11/08/2018 NORIS DOHERTY DO Ot E78.00 PURE HYPERCHOLESTEROLEMIA, UNSPECIFIED 11/08/2018 NORIS DOHERTY DO Ot G43.909 MIGRAINE, UNSP, NOT INTRACTABLE, WITHOUT 11/08/2018 NORIS DOHERTY DO Ot G47.30 SLEEP APNEA, UNSPECIFIED 11/08/2018 BESSY NORIS MOYA Ot 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 11/08/2018 BESSY NORIS MOYA Ot J45.909 UNSPECIFIED ASTHMA, UNCOMPLICATED 11/08/2018 NORIS DOHERTY DO Ot K21.9 GASTRO-ESOPHAGEAL REFLUX DISEASE WITHOUT 11/08/2018 BESSY NORIS MOYA Ot K62.5 HEMORRHAGE OF ANUS AND RECTUM 11/08/2018 NORIS DOHERTY DO Ot N39.0 URINARY TRACT INFECTION, SITE NOT SPECIF 11/08/2018 NORIS DOHERTY DO Ot R11.2 NAUSEA WITH VOMITING, UNSPECIFIED 11/08/2018 NORIS DOHERTY DO Ot Z79.01 RESIDENTIAL (CURRENT) USE OF ANTICOAGULANT 11/08/2018 NORIS DOHERTY DO Ot Z79.02 RESIDENTIAL (CURRENT) USE OF ANTITHROMBOTI 11/08/2018 BESSY NORIS MOYA Ot 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 11/08/2018 NORIS DOHERTY DO Ot Z80.0 FAMILY HISTORY OF MALIGNANT NEOPLASM OF 11/08/2018 NORIS DOHERTY DO Ot Z82.49 FAMILY HX OF ISCHEM HEART DIS AND OTH DI 11/08/2018 NORIS DOHERTY DO Ot Z87.442 PERSONAL HISTORY OF URINARY CALCULI 11/08/2018 NORIS DOHERTY DO Ot Z88.0 ALLERGY STATUS TO PENICILLIN 11/08/2018 BESSY NORIS MOYA Ot Z88.5 ALLERGY STATUS TO NARCOTIC AGENT STATUS 11/08/2018 BESSY NORIS MOYA Ot Z88.8 ALLERGY STATUS TO OTH DRUG/MEDS/BIOL SUB 11/08/2018 NORIS DOHERTY DO Ot Z90.49 ACQUIRED ABSENCE OF OTHER SPECIFIED PART 11/08/2018 NORIS DOHERTY DO Ot Z90.710 ACQUIRED ABSENCE OF BOTH CERVIX AND UTER 11/08/2018 NORIS DOHERTY DO Ot Z95.5 PRESENCE OF CORONARY ANGIOPLASTY IMPLANT Procedures Code Description Performed By Performed On 06.4 COMPLETE THYROIDECTOMY 09/11/2009 37.22 LEFT HEART CARDIAC CATH 03/17/2012 88.53 LT HEART ANGIOCARDIOGRAM 03/17/2012 88.56 CORONAR ARTERIOGR-2 CATH 03/17/2012 75282 XRAY CERVICAL SPINE, 2 OR 3 VIEWS 04/20/2012 97686 ROUTINE VENIPUNCTURE 04/22/2012 18452 INR (IN HOUSE) 04/22/2012 57699 TSH 04/23/2012 45862 OXIMETRY 04/27/2012 80127 MEASURE BLOOD OXYGEN LEVEL 05/16/2012 59845 ROUTINE VENIPUNCTURE 06/03/2012 62758 XRAY CHEST 2 VIEW 06/03/2012 51859 BNP 06/03/2012 64317 CBC 06/03/2012 88099 INR (IN HOUSE) 06/03/2012 85492 OXIMETRY 06/03/2012 39427 XRAY FOOT LEFT COMP MIN 3 VIEWS 06/17/2012 20033 SPIROMETRY 06/29/2012 28881 BRONCHODILATION PRE/POST 06/29/2012 62789 RESPIRATORY FLOW VOLUME LOOP 06/29/2012 68037 UA W/ CULTURE IF INDICATED 07/13/[address] ABDOMEN & PELVIS STONE SEARCH 07/28/2012 07948 UA W/ CULTURE IF INDICATED 07/28/2012 52499 STONE ANALYSIS 07/29/[address] HEAD/BRAIN W/O & W/DYE 07/30/2012 09500 XRAY ANKLE R COMP MIN, 3 VIEWS 09/02/2012 85203 XRAY FOOT RIGHT 2 VIEWS 09/02/[address] ANGIO, CHEST 10/18/2012 54902 INR (IN HOUSE) 10/28/2012 75069 US GUIDE FOR BIOPSY 12/16/2012 27700 US BREAST(S) ULTRASOUND, BOTH 12/24/2012 93834 INR (IN HOUSE) 01/12/2013 97006 UA W/ CULTURE IF INDICATED 01/12/2013 22277 CULTURE URINE 01/14/2013 28553 INR (IN HOUSE) 02/10/2013 97908 ROUTINE VENIPUNCTURE 03/15/2013 98050 XRAY FOOT RIGHT 2 VIEWS 03/15/2013 03986 TSH 03/15/2013 56469 INR (IN HOUSE) 03/15/2013 92998 XRAY CHEST 2 VIEW 03/23/[address] CHEST W/DYE 03/23/2013 14413 ECHO 2D 03/23/2013 39972 OXIMETRY 03/23/2013 14872 INR (IN HOUSE) 03/29/2013 46843 INR (IN HOUSE) 05/18/2013 26985 XRAY CHEST 2 VIEW 05/19/2013 03729 OXIMETRY 05/23/2013 78862 UA W/ CULTURE IF INDICATED 06/14/2013 30393 ROUTINE VENIPUNCTURE 06/23/2013 69086 INR (IN HOUSE) 06/23/2013 10009 LIPID PANEL 06/23/2013 58680 TSH 06/23/2013 80561 MRI EXTREMITY JOINT, LOWER RIGHT, W/O CONTRAST 07/14/2013 ORTHOPEDI JAMARCUS DEVLIN 07/14/2013 27286 ROUTINE VENIPUNCTURE 08/15/2013 28230 INR (IN HOUSE) 08/15/2013 71351 TSH 08/15/2013 59808 INR (IN HOUSE) 09/02/2013 12767 CULTURE URINE 12/16/2013 71067 UA W/ CULTURE IF INDICATED 12/16/2013 67106 CULTURE URINE 12/19/2013 18894 ROUTINE VENIPUNCTURE 05/26/2014 78682 INR (IN HOUSE) 05/26/2014 30143 TSH 05/26/2014 23839 CBC 05/26/2014 54025 US VENOUS DOPPLER (DVT EVAL) 08/07/2014 [id number] DILATE 1 COR ART, BIFURC, W DRUG-ELUT IN 08/19/2017 [id number] DILATION OF 1 COR ART WITH DRUG-ELUT INT 08/19/2017 [id number] MEASURE OF CARDIAC SAMPL PRESSURE, L H 08/19/2017 [id number] FLUOROSCOPY OF MULT COR ART USING L OSM 08/19/2017 [id number] FLUOROSCOPY OF LEFT HEART USING LOW OSMO [...] Automated erythrocyte mean corpuscular hemoglobin concentration measurement (mass/volume) 32 g/dL 32-36 Automated erythrocyte distribution width ratio 15.6 % 10.0- 14.5 Automated blood platelet count (count/volume) 210 10*3/uL 130-400 Automated blood platelet mean volume measurement 10.6 [[facility]] 7.4-10.4 Automated blood neutrophils/100 leukocytes 69 % 42-75 Automated blood lymphocytes/100 leukocytes 22 % 12-44 Blood monocytes/100 leukocytes 7 % 0-12 Automated blood eosinophils/100 leukocytes 1 % 0-10 Automated blood basophils/100 leukocytes 0 % 0-10 Blood neutrophils automated count (number/volume) 6.5 10*3 1.8-7.8 Blood lymphocytes automated count (number/volume) 2.1 10*3 1.0-4.0 Blood monocytes automated count (number/volume) 0.7 10*3 0.0- 1.0 Automated eosinophil count 0.1 10*3/uL 0.0-0.3 Automated [...] Serum or plasma aspartate aminotransferase measurement (enzymatic activity/volume) 24 U/L 5-34 Serum or plasma alanine aminotransferase measurement (enzymatic activity/volume) 27 U/L 0-55 Serum or plasma protein measurement (mass/volume) 7.3 g/dL 6.4-8.2 Serum or plasma albumin measurement (mass/volume) 3.9 g/dL 3.2-4.5 Magnesium - 02/16/16 19:10 Magnesium 2.4 mg/dL 1.8-2.4 Serum or plasma troponin i.cardiac measurement (mass/volume) - 02/16/16 19:10 Serum or plasma troponin i.cardiac measurement (mass/volume) < ng/mL <0.30 Myoglobin, serum - 02/16/16 19:10 Myoglobin, serum 22.9 ng/mL 10.0-92.0 Serum or plasma troponin i.cardiac measurement (mass/volume) - 02/16/16 21:25 Serum or plasma troponin i.cardiac measurement (mass/volume) < ng/mL <0.30 Complete blood count (CBC) with automated white [...] Automated erythrocyte mean corpuscular hemoglobin concentration measurement (mass/volume) 32 g/dL 32-36 Automated erythrocyte distribution width ratio 15.3 % 10.0- 14.5 Automated blood platelet count (count/volume) 214 10*3/uL [...] Blood monocytes automated count (number/volume) 0.6 10*3 0.0- 1.0 Automated eosinophil count 0.1 10*3/uL 0.0-0.3 Automated blood basophil count (count/volume) 0.0 10*3/uL 0.0-0.1 [id number] - 07/17/16 07:14 Serum or plasma urea nitrogen measurement (mass/volume) 13 mg/dL 7-18 Serum or plasma creatinine measurement (mass/volume) 0.81 mg/dL 0.60-1.30 Serum or plasma urea nitrogen/creatinine mass ratio 16 NRG Serum or plasma creatinine measurement with calculation of estimated glomerular filtration rate > NRG Complete blood count (CBC) with automated [...] Automated erythrocyte mean corpuscular hemoglobin concentration measurement (mass/volume) 32 g/dL 32-36 Automated erythrocyte distribution width ratio 15.2 % 10.0- 14.5 Automated blood platelet count (count/volume) 203 10*3/uL [...] Blood monocytes automated count (number/volume) 0.7 10*3 0.0- 1.0 Automated eosinophil count 0.1 10*3/uL 0.0-0.3 Automated [...] Serum or plasma aspartate aminotransferase measurement (enzymatic activity/volume) 29 U/L 5-34 Serum or plasma alanine aminotransferase measurement (enzymatic activity/volume) 27 U/L 0-55 Serum or plasma protein measurement (mass/volume) 7.9 g/dL 6.4-8.2 Serum or plasma albumin measurement (mass/volume) 3.8 g/dL 3.2-4.5 Magnesium - 01/20/17 20:30 Magnesium 2.2 mg/dL 1.8-2.4 Serum or plasma troponin i.cardiac measurement (mass/volume) - 01/20/17 20:30 Serum or plasma troponin i.cardiac measurement (mass/volume) < ng/mL <0.30 THYROID STIMULATING HORMONE - 01/20/17 20:30 [...] gravity of urine by test strip 1.025 1.016-1.022 Urine protein assay by test strip, semi-quantitative [...] sediment leukocyte count by microscopy (number/high power field) [HPF] NRG Bacteria detection in urine sediment [...] 01/20/17 20:35 URINE CULTURE RESULTS <10,000/ML NRG PT panel in platelet poor plasma [...] Automated erythrocyte mean corpuscular hemoglobin concentration measurement (mass/volume) 31 g/dL 32-36 Automated erythrocyte distribution width ratio 15.3 % 10.0- 14.5 Automated blood platelet count (count/volume) 231 10*3/uL 130-400 Automated blood platelet mean volume measurement 11.0 [foz_us] 7.4-10.4 Complete urinalysis with reflex to culture - 08/19/17 08:58 Urine color determination YELLOW NRG Urine clarity determination CLEAR NRG Urine pH measurement by test strip 5 5-9 Specific gravity of urine by test strip 1.025 1.016-1.022 Urine protein assay by test strip, semi-quantitative [...] sediment leukocyte count by microscopy (number/high power field) [HPF] NRG Bacteria detection in urine sediment [...] Serum or plasma aspartate aminotransferase measurement (enzymatic activity/volume) 21 U/L 5-34 Serum or plasma alanine aminotransferase measurement (enzymatic activity/volume) 22 U/L 0-55 Serum or plasma protein measurement (mass/volume) 8.1 g/dL 6.4-8.2 Serum or plasma albumin measurement (mass/volume) 4.1 g/dL 3.2-4.5 Lipid 1996 panel - 08/19/17 08:58 Serum or plasma triglyceride measurement (mass/volume) 216 mg/dL <150 Serum or plasma cholesterol measurement (mass/volume) 249 mg/dL < 200 Serum or plasma cholesterol in HDL measurement (mass/volume) 38 mg/dL 40-60 Cholesterol in LDL [mass/volume] in serum or plasma by direct assay 176 mg/dL 1-129 Serum or plasma cholesterol in VLDL measurement (mass/volume) 43 mg/dL 5-40 Bacterial urine culture - 08/19/17 08:58 URINE CULTURE RESULTS <10,000/ML NRG Methicillin resistant Staphylococcus aureus (MRSA) screening culture - 08/19/17 08:58 Methicillin resistant Staphylococcus aureus (MRSA) screening [...] Automated erythrocyte mean corpuscular hemoglobin concentration measurement (mass/volume) 32 g/dL 32-36 Automated erythrocyte distribution width ratio 15.3 % 10.0- 14.5 Automated blood platelet count (count/volume) 190 10*3/uL [...] Blood monocytes automated count (number/volume) 0.9 10*3 0.0- 1.0 Automated eosinophil count 0.2 10*3/uL 0.0-0.3 Automated [...] Automated erythrocyte mean corpuscular hemoglobin concentration measurement (mass/volume) 32 g/dL 32-36 Automated erythrocyte distribution width ratio 15.3 % 10.0- 14.5 Automated blood platelet count (count/volume) 182 10*3/uL [...] Blood monocytes automated count (number/volume) 1.0 10*3 0.0- 1.0 Automated eosinophil count 0.2 10*3/uL 0.0-0.3 Automated [...] Serum or plasma aspartate aminotransferase measurement (enzymatic activity/volume) 21 U/L 5-34 Serum or plasma alanine aminotransferase measurement (enzymatic activity/volume) 20 U/L 0-55 Serum or plasma protein measurement (mass/volume) 7.7 g/dL 6.4-8.2 Serum or plasma albumin measurement (mass/volume) 3.9 g/dL 3.2-4.5 Magnesium - 08/20/17 12:45 Magnesium 1.9 mg/dL 1.8-2.4 Serum or plasma troponin i.cardiac measurement (mass/volume) - 08/20/17 12:45 Serum or plasma troponin i.cardiac measurement (mass/volume) < ng/mL <0.30 Myoglobin, serum - 08/20/17 12:45 Myoglobin, [...] Automated erythrocyte mean corpuscular hemoglobin concentration measurement (mass/volume) 32 g/dL 32-36 Automated erythrocyte distribution width ratio 15.2 % 10.0- 14.5 Automated blood platelet count (count/volume) 231 10*3/uL [...] Blood monocytes automated count (number/volume) 0.8 10*3 0.0- 1.0 Automated eosinophil count 0.3 10*3/uL 0.0-0.3 Automated [...] Serum or plasma aspartate aminotransferase measurement (enzymatic activity/volume) 22 U/L 5-34 Serum or plasma alanine aminotransferase measurement (enzymatic activity/volume) 20 U/L 0-55 Serum or plasma protein measurement (mass/volume) 8.1 g/dL 6.4-8.2 Serum or plasma albumin measurement (mass/volume) 3.9 g/dL 3.2-4.5 Magnesium - 09/04/17 22:58 Magnesium 2.3 mg/dL 1.8-2.4 Serum or plasma troponin i.cardiac measurement (mass/volume) - 09/04/17 22:58 Serum or plasma troponin i.cardiac measurement (mass/volume) < ng/mL <0.30 Myoglobin, serum - 09/04/17 22:58 Myoglobin, serum 39.3 ng/mL 10.0-92.0 Complete urinalysis with reflex to culture - 09/04/17 23:34 Urine color determination YELLOW NRG Urine clarity determination VERY CLOUDY NRG Urine pH measurement by test strip 5 5-9 Specific gravity of urine by test strip 1.020 1.016-1.022 Urine protein assay by test strip, semi-quantitative [...] sediment leukocyte count by microscopy (number/high power field) TNTC NRG Bacteria detection in urine sediment [...] culture - 09/04/17 23:34 Bacterial urine culture [id number] NRG COLONY COUNT >100,000/ML NRG FTX;REPORTABLE SENSITIVITY REPORTED 09/06/17 7:55 NRG FREE TEXT ENTRY 2 PLUS, NRG FREE TEXT ENTRY 3 MIXED GRAM POSITIVES <10,000/ML NRG Bacterial susceptibility panel - 09/04/17 23:34 Gentamicin susceptibility test by minimum inhibitory concentration <= NRG Trimethoprim/sulfamethoxazole susceptibility test by minimum inhibitoryconcentration S NRG Ampicillin susceptibility test by minimum inhibitory concentration <= NRG Tobramycin susceptibility test by minimum inhibitory concentration <= NRG Cefazolin susceptibility test by minimum inhibitory concentration <= NRG Ceftriaxone susceptibility test by minimum inhibitory concentration <= NRG Ampicillin/sulbactam susceptibility test by minimum inhibitory concentration S NRG Piperacillin/tazobactam susceptibility test by minimum inhibitory concentration S NRG Ciprofloxacin susceptibility test by minimum inhibitory concentration <= NRG Meropenem susceptibility test by minimum inhibitory concentration <= NRG Nitrofurantoin susceptibility test by minimum inhibitory concentration <= NRG Aztreonam susceptibility test by minimum inhibitory concentration <= NRG Extended spectrum beta lactamase (ESBL) producing bacteria susceptibility test by minimum inhibitory concentration - NRG Serum or plasma troponin i.cardiac measurement (mass/volume) - 09/05/17 04:27 Serum or plasma troponin i.cardiac measurement (mass/volume) < ng/mL <0.30 Myoglobin, serum - 09/05/17 04:27 Myoglobin, serum 34.4 ng/mL 10.0-92.0 Lipid 1996 panel - 09/05/17 04:27 Serum or plasma triglyceride measurement (mass/volume) 121 mg/dL <150 Serum or plasma cholesterol measurement (mass/volume) 152 mg/dL < 200 Serum or plasma cholesterol in HDL measurement (mass/volume) 35 mg/dL 40-60 Cholesterol in LDL [mass/volume] in serum or plasma by direct assay 98 mg/dL 1-129 Serum or plasma cholesterol in VLDL measurement (mass/volume) 24 mg/dL 5-40 Serum or plasma lithium measurement (moles/volume) - 09/05/17 07:17 BNP level < pg/mL <100.0 Complete blood count (CBC) with automated white [...] Automated erythrocyte mean corpuscular hemoglobin concentration measurement (mass/volume) 31 g/dL 32-36 Automated erythrocyte distribution width ratio 15.5 % 10.0- 14.5 Automated blood platelet count (count/volume) 225 10*3/uL [...] Blood monocytes automated count (number/volume) 0.5 10*3 0.0- 1.0 Automated eosinophil count 0.1 10*3/uL 0.0-0.3 Automated blood basophil count (count/volume) 0.0 10*3/uL 0.0-0.1 Fibrin D-dimer FEU measurement in platelet poor plasma (mass/volume) - 07/09/18 15:03 Fibrin D-dimer FEU measurement in platelet [...] Serum or plasma aspartate aminotransferase measurement (enzymatic activity/volume) 22 U/L 5-34 Serum or plasma alanine aminotransferase measurement (enzymatic activity/volume) 14 U/L 0-55 Serum or plasma protein measurement (mass/volume) 7.3 g/dL 6.4-8.2 Serum or plasma albumin measurement (mass/volume) 3.9 g/dL 3.2-4.5 CALCIUM CORRECTED 8.9 mg/dL 8.5-10.1 Serum or plasma troponin i.cardiac measurement (mass/volume) - 07/09/18 15:03 Serum or plasma troponin i.cardiac measurement (mass/volume) < ng/mL <0.028 Serum or plasma lithium measurement (moles/volume) - 07/09/18 15:03 BNP level 18.9 pg/mL <100.0 Complete urinalysis with reflex to culture - 07/09/18 18:00 Urine color determination YELLOW NRG Urine clarity determination CLEAR NRG Urine pH measurement by test strip 6 5-9 Specific gravity of urine by test strip 1.010 1.016-1.022 Urine protein assay by test strip, semi-quantitative [...] sediment leukocyte count by microscopy (number/high power field) RARE NRG Bacteria detection in urine sediment by light microscopy TRACE NRG Squamous epithelial cells detection in urine sediment by light microscopy 0-2 NRG Crystals detection in urine sediment by light microscopy NONE NRG Casts detection in urine sediment by light microscopy NONE NRG Mucus detection in urine sediment by light microscopy NEGATIVE NRG Complete urinalysis with reflex to culture NO NRG Complete blood count (CBC) with automated white blood cell (WBC) differential - 10/05/18 14:50 Blood leukocytes automated count (number/volume) 7.9 10*3/uL 4.3-11.0 Blood erythrocytes automated count (number/volume) 4.70 10*6/uL 4.35-5.85 Venous blood hemoglobin measurement (mass/volume) 13.6 g/dL 11.5-16.0 Blood hematocrit (volume fraction) 44 % 35-52 Automated erythrocyte mean corpuscular volume 93 [foz_us] 80-99 Automated erythrocyte mean corpuscular hemoglobin (mass per erythrocyte) 29 pg 25-34 Automated erythrocyte mean corpuscular hemoglobin concentration measurement (mass/volume) 31 g/dL 32-36 Automated erythrocyte distribution width ratio 14.8 % 10.0- 14.5 Automated blood platelet count (count/volume) 208 10*3/uL 130-400 Automated blood platelet mean volume measurement 10.5 [foz_us] 7.4-10.4 Automated blood neutrophils/100 leukocytes 74 % 42-75 Automated blood lymphocytes/100 leukocytes 20 % 12-44 Blood monocytes/100 leukocytes 4 % 0-12 Automated blood eosinophils/100 leukocytes 1 % 0-10 Automated blood basophils/100 leukocytes 0 % 0-10 Blood neutrophils automated count (number/volume) 5.9 10*3 1.8-7.8 Blood lymphocytes automated count (number/volume) 1.6 10*3 1.0-4.0 Blood monocytes automated count (number/volume) 0.3 10*3 0.0- 1.0 Automated eosinophil count 0.1 10*3/uL 0.0-0.3 Automated blood basophil count (count/volume) 0.0 10*3/uL 0.0-0.1 Comprehensive metabolic panel - 10/05/18 14:50 Serum or plasma sodium measurement (moles/volume) 141 mmol/L 135-145 Serum or plasma potassium measurement (moles/volume) 3.7 mmol/L 3.6-5.0 Serum or plasma chloride measurement (moles/volume) 99 mmol/L 98-107 Carbon dioxide 26 mmol/L 21-32 Serum or plasma anion gap determination (moles/volume) 16 mmol/L 5-14 Serum or plasma urea nitrogen measurement (mass/volume) 9 mg/dL 7-18 Serum or plasma creatinine measurement (mass/volume) 0.83 mg/dL 0.60-1.30 Serum or plasma urea nitrogen/creatinine mass ratio 11 NRG Serum or plasma creatinine measurement with calculation of estimated glomerular filtration rate > NRG Serum or plasma glucose measurement (mass/volume) 265 mg/dL 70-105 Serum or plasma calcium measurement (mass/volume) 8.7 mg/dL 8.5-10.1 Serum or plasma total bilirubin measurement (mass/volume) 0.4 mg/dL 0.1-1.0 Serum or plasma alkaline phosphatase measurement (enzymatic activity/volume) 117 U/L 40-136 Serum or plasma aspartate aminotransferase measurement (enzymatic activity/volume) 19 U/L 5-34 Serum or plasma alanine aminotransferase measurement (enzymatic activity/volume) 16 U/L 0-55 Serum or plasma protein measurement (mass/volume) 7.5 g/dL 6.4-8.2 Serum or plasma albumin measurement (mass/volume) 4.2 g/dL 3.2-4.5 CALCIUM CORRECTED 8.5 mg/dL 8.5-10.1 Magnesium - 10/05/18 14:50 Magnesium 2.1 mg/dL 1.8-2.4 Lipase - 10/05/18 14:50 Lipase 37 U/L 8-78 TROPONIN T - 10/05/18 14:50 TROPONIN T 9 % <=10 PROBNP FS - 10/05/18 14:50 PROBNP FS 51.4 pg/mL <75.0 Activated partial thromboplastin time (aPTT) in platelet poor plasma bycoagulation assay - 10/05/18 14:50 Activated partial thromboplastin time (aPTT) in platelet poor plasma bycoagulation assay 32 s 24-35 Fibrin D-dimer FEU measurement in platelet poor plasma (mass/volume) - 10/05/18 14:50 Fibrin D-dimer FEU measurement in platelet poor plasma (mass/volume) 0.39 ug/mL 0.00-0.49 TROPONIN T - 10/05/18 16:52 TROPONIN T 8 % <=10 PT panel in platelet poor plasma by coagulation assay - 10/05/18 16:52 Prothrombin time (PT) in platelet poor plasma by coagulation assay 19.6 s 12.2-14.7 INR in platelet poor plasma or blood by coagulation assay 1.6 0.8-1.4 Complete urinalysis with reflex to culture - 11/05/18 18:13 Urine color determination IFEOMA NRG Urine clarity determination SLIGHTLY CLOUDY NRG Urine pH measurement by test strip 5 5-9 Specific gravity of urine by test strip 1.020 1.016-1.022 Urine protein assay by test strip, semi-quantitative [...] sediment leukocyte count by microscopy (number/high power field) [HPF] NRG Bacteria detection in urine sediment by light microscopy MODERATE NRG Squamous epithelial cells detection in urine sediment by light microscopy 10-25 NRG Crystals detection in urine sediment by light microscopy NONE NRG Casts detection in urine sediment by light microscopy NONE NRG Mucus detection in urine sediment by light microscopy SMALL NRG Complete urinalysis with reflex to culture YES NRG Bacterial urine culture - 11/05/18 18:13 Bacterial urine culture 3 OR MORE NRG COLONY COUNT >100,000/ML NRG FTX;REPORTABLE GRAM POSITIVE ISOLATES; SUGGESTING NRG FREE TEXT ENTRY 2 PROBABLE COLLECTION CONTAMINATION WITH NRG FREE TEXT ENTRY 3 SKIN KWAME. NO SUSCEPTIBILITY PERFORMED. NRG Complete blood count (CBC) with automated white blood cell (WBC) differential - 11/05/18 18:18 Blood leukocytes automated count (number/volume) 8.9 10*3/uL 4.3-11.0 Blood erythrocytes automated count (number/volume) 4.84 10*6/uL 4.35-5.85 Venous blood hemoglobin measurement (mass/volume) 13.9 g/dL 11.5-16.0 Blood hematocrit (volume fraction) 44 % 35-52 Automated erythrocyte mean corpuscular volume 91 [foz_us] 80-99 Automated erythrocyte mean corpuscular hemoglobin (mass per erythrocyte) 29 pg 25-34 Automated erythrocyte mean corpuscular hemoglobin concentration measurement (mass/volume) 32 g/dL 32-36 Automated erythrocyte distribution width ratio 15.2 % 10.0- 14.5 Automated blood platelet count (count/volume) 248 10*3/uL 130-400 Automated blood platelet mean volume measurement 10.5 [foz_us] 7.4-10.4 Automated blood neutrophils/100 leukocytes 76 % 42-75 Automated blood lymphocytes/100 leukocytes 16 % 12-44 Blood monocytes/100 leukocytes 7 % 0-12 Automated blood eosinophils/100 leukocytes 1 % 0-10 Automated blood basophils/100 leukocytes 0 % 0-10 Blood neutrophils automated count (number/volume) 6.8 10*3 1.8-7.8 Blood lymphocytes automated count (number/volume) 1.4 10*3 1.0-4.0 Blood monocytes automated count (number/volume) 0.6 10*3 0.0- 1.0 Automated eosinophil count 0.1 10*3/uL 0.0-0.3 Automated blood basophil count (count/volume) 0.0 10*3/uL 0.0-0.1 PT panel in platelet poor plasma by coagulation assay - 11/05/18 18:18 Prothrombin time (PT) in platelet poor plasma by coagulation assay 31.1 s 12.2-14.7 INR in platelet poor plasma or blood by coagulation assay 2.8 0.8-1.4 Activated partial thromboplastin time (aPTT) in platelet poor plasma bycoagulation assay - 11/05/18 18:18 Activated partial thromboplastin time (aPTT) in platelet poor plasma bycoagulation assay 50 s 24-35 Comprehensive metabolic panel - 11/05/18 18:18 Serum or plasma sodium measurement (moles/volume) 136 mmol/L 135-145 Serum or plasma potassium measurement (moles/volume) 4.2 mmol/L 3.6-5.0 Serum or plasma chloride measurement (moles/volume) 101 mmol/L 98-107 Carbon dioxide 22 mmol/L 21-32 Serum or plasma anion gap determination (moles/volume) 13 mmol/L 5-14 Serum or plasma urea nitrogen measurement (mass/volume) 11 mg/dL 7-18 Serum or plasma creatinine measurement (mass/volume) 0.95 mg/dL 0.60-1.30 Serum or plasma urea nitrogen/creatinine mass ratio 12 NRG Serum or plasma creatinine measurement with calculation of estimated glomerular filtration rate 60 NRG Serum or plasma glucose measurement (mass/volume) 107 mg/dL 70-105 Serum or plasma calcium measurement (mass/volume) 9.1 mg/dL 8.5-10.1 Serum or plasma total bilirubin measurement (mass/volume) 0.4 mg/dL 0.1-1.0 Serum or plasma alkaline phosphatase measurement (enzymatic activity/volume) 120 U/L 40-136 Serum or plasma aspartate aminotransferase measurement (enzymatic activity/volume) 22 U/L 5-34 Serum or plasma alanine aminotransferase measurement (enzymatic activity/volume) 20 U/L 0-55 Serum or plasma protein measurement (mass/volume) 8.2 g/dL 6.4-8.2 Serum or plasma albumin measurement (mass/volume) 4.3 g/dL 3.2-4.5 CALCIUM CORRECTED 8.9 mg/dL 8.5-10.1 Magnesium - 11/05/18 18:18 Magnesium 2.2 mg/dL 1.8-2.4 Serum or plasma amylase measurement (enzymatic activity/volume) - 11/05/18 18:18 Serum or plasma amylase measurement (enzymatic activity/volume) 78 U/L 25-125 Lipase - 11/05/18 18:18 Lipase 63 U/L 8-78 Blood type T Indirect antibody screen panel - 11/05/18 18:18 WRISTBAND NUMBER [id number] NRG ABO+Rh group AP NRG Blood group antibody screen NEGATIVE NRG Encounters ACCT No. Visit Date/Time Discharge Status Pt. Type Provider Facility Loc./Unit Complaint [id number] 08/07/2014 09:51:00 08/07/2014 23:59:59 CLS Outpatient ARIZA DO JOSE ALBERTO K [id number] 05/26/2014 11:37:00 05/26/2014 23:59:59 CLS Outpatient ANNITA MOYA JOSE ALBERTO K [id number] 01/16/2014 11:28:00 01/16/2014 23:59:59 CLS Outpatient ARIZA DO JOSE ALBERTO K [id number] 12/26/2013 12:31:00 12/26/2013 23:59:59 CLS Outpatient ARIZA DOJOSE ALBERTO [id number] 12/19/2013 13:24:00 12/19/2013 23:59:59 CLS Outpatient ARIZA DOJOSE ALBERTO [id number] 12/16/2013 13:58:00 12/16/2013 23:59:59 CLS Outpatient ARIZA DOJOSE ALBERTO [id number] 12/16/2013 13:58:00 12/16/2013 23:59:59 CLS Outpatient ARIZA JOSE ALBERTO MOYA [id number] 10/07/2013 14:22:00 10/07/2013 23:59:59 CLS Outpatient JOSE ALBERTO ARIZA DO [id number] 09/02/2013 10:22:00 09/02/2013 23:59:59 CLS Outpatient ARIZA DOJOSE ALBERTO [id number] 08/15/2013 14:48:00 08/15/2013 23:59:59 CLS Outpatient ARIZA DOJOSE ALBERTO [id number] 07/14/2013 14:39:00 07/14/2013 23:59:59 CLS Outpatient CHERYL BIRMINGHAM APRN Torri [id number] 07/08/2013 08:55:00 07/08/2013 23:59:59 CLS Outpatient ARIZA DOJOSE ALBERTO [id number] 06/23/2013 09:13:00 06/23/2013 23:59:59 CLS Outpatient VIVEK DUMONT CHARLES Danielle [id number] 06/14/2013 15:59:00 06/14/2013 23:59:59 CLS Outpatient CHERYL BIRMINGHAM APRN Torri [id number] 05/30/2013 12:08:00 05/30/2013 23:59:59 CLS Outpatient ARIZA DOJOSE ALBERTO [id number] 05/23/2013 10:34:00 05/23/2013 23:59:59 CLS Outpatient ARIZA DOJOSE ALBERTO [id number] 05/23/2013 10:34:00 05/23/2013 23:59:59 CLS Outpatient ARIZA DOJOSE ALBERTO Astrid [id number] 05/18/2013 17:42:00 05/18/2013 23:59:59 CLS Outpatient DONI PALAFOX APRN Amanda [id number] 04/18/2013 11:55:00 04/18/2013 23:59:59 CLS Outpatient ARIZA DOJOSE ALBERTO Astrid [id number] 03/29/2013 11:13:00 03/29/2013 23:59:59 CLS Outpatient ARIZA DO, JOSE ALBERTO Astrid [id number] 03/22/2013 09:39:00 03/22/2013 23:59:59 CLS Outpatient ARIZA DOCHRISTOPHERSantana Resendiz [id number] 03/22/2013 09:39:00 03/22/2013 23:59:59 CLS Outpatient ARIZA DO, JOSE ALBERTO Astrid [id number] 03/15/2013 09:00:00 03/15/2013 23:59:59 CLS Outpatient ARIZA DOJOSE ALBERTO Astrid [id number] 03/15/2013 09:00:00 03/15/2013 23:59:59 CLS Outpatient ARIZA DOCHRISTOPHERSantana Resendiz [id number] 02/10/2013 08:00:00 02/10/2013 23:59:59 CLS Outpatient JOSE ALBERTO ARIZA DO [id number] 07/28/2012 14:05:00 07/28/2012 23:59:59 CLS Outpatient JOSE ALBERTO ARIZA DO [id number] 07/13/2012 10:49:00 07/13/2012 23:59:59 CLS Outpatient JOSE ALBERTO ARIZA DO [id number] 06/29/2012 07:51:00 06/29/2012 23:59:59 CLS Outpatient CHARLES DOYLE PA-C [id number] 06/10/2012 10:44:00 06/10/2012 23:59:59 CLS Outpatient [id number] 06/03/2012 09:27:00 06/03/2012 23:59:59 CLS Outpatient JOSE ALBERTO ARIZA DO [id number] 05/14/2012 15:57:00 05/14/2012 23:59:59 CLS Outpatient JOSE ALBERTO ARIZA DO [id number] 04/27/2012 08:04:00 04/27/2012 23:59:59 CLS Outpatient [id number] 04/22/2012 09:50:00 04/22/2012 23:59:59 CLS Outpatient [id number] 04/20/2012 16:19:00 04/20/2012 23:59:59 CLS Outpatient [id number] 02/05/2012 08:28:00 02/05/2012 23:59:59 CLS Outpatient MORIS LOYOLA MD [id number] 01/12/2013 09:13:00 Document Registration [id number] 12/16/2012 09:21:00 Document Registration [id number] 12/16/2012 09:21:00 Document Registration [id number] 10/28/2012 12:34:00 Document Registration [id number] 09/10/2012 16:36:00 Document Registration [id number] 08/31/2012 10:19:00 Document Registration [id number] 08/31/2012 10:19:00 Document Registration [id number] 11/05/2018 17:39:00 11/05/2018 21:19:00 DIS Outpatient NORIS DOHERTY DO [facility] ER NAUSEA/RECTAL BLEEDING [id number] 10/05/2018 14:36:00 10/05/2018 19:15:00 DIS Emergency ALEJANDRA MARTIN DO [facility] ER FS CHEST PAIN [id number] 09/09/2018 13:30:00 09/09/2018 23:59:59 CLS Outpatient DIANA HU [facility] RAD FS M79.671 [id number] 08/11/2018 08:53:00 08/11/2018 23:59:59 CLS Outpatient NEVA HU [employer] SOFTWARE DEVELOPER [facility] RAD FS RECURRENT SYNCOPE [id number] 07/26/2018 21:53:00 07/27/2018 00:09:00 DIS Emergency STEPHANY NAM, AMANDEEP Yusuf [facility] ER FS RT FOOT INJ [id number] 07/09/2018 14:14:00 07/09/2018 18:30:00 DIS Emergency RAJWINDER NAM, DEWEY S [facility] ER DIZZY, LIGHT HEADED [id number] 09/28/2017 00:11:00 09/28/2017 23:59:59 CLS Preadmit REAGAN MCNEILL MD [facility] LAB Z51.81 Z86.711 [id number] 09/26/2017 09:48:00 09/27/2017 00:01:00 DIS Outpatient RAEGAN MCNEILL MD [facility] LAB Z51.81 Z86.711 [id number] 09/04/2017 22:53:00 09/05/2017 15:17:00 DIS Inpatient VIANNEY SIMTH DO E [facility] 4TH CHEST PAIN [id number] 08/20/2017 12:34:00 08/20/2017 13:57:00 DIS Outpatient SHALOM RAMÍREZ [employer]TE[employer]ATION SOFTWARE DEVELOPER [facility] ER CP [id number] 08/19/2017 08:24:00 08/20/2017 09:55:00 DIS Outpatient REAGAN MCNEILL MD [facility] CATH ABN STRESS,CP,HTN [id number] 08/05/2017 10:36:00 08/05/2017 23:59:59 CLS Outpatient MICHAEL WAGNER [facility] CARD I25.10 CAD [id number] 07/13/2017 14:45:00 07/13/2017 23:59:59 CLS Preadmit MICHAEL WAGNER [facility] CARD I25.10 CAD [id number] 07/10/2017 12:47:00 07/10/2017 23:59:59 CLS Outpatient PAYAL VIGIL [employer]ATION SOFTWARE DEVELOPER [facility] RAD N20.0 RENAL STONES [id number] 02/05/2017 12:52:00 02/05/2017 23:59:59 CLS Outpatient PAYAL VIGIL [employer]TEGRATION SOFTWARE DEVELOPER [facility] RAD M54.2 [id number] 01/20/2017 18:36:00 01/20/2017 23:32:00 DIS Emergency CHARLES LOPEZ MD [facility] ER SOB,DIZZINESS,NAUSEA [id number] 12/29/2016 00:14:00 12/29/2016 23:59:59 CLS Preadmit REAGAN MCNEILL MD [facility] LAB Z86.711 [id number] 12/28/2016 13:45:00 12/28/2016 15:30:00 DIS Emergency NORIS DOHERTY DO K [facility] ER HEADACHE [id number] 09/29/2016 14:31:00 12/28/2016 00:01:00 DIS Outpatient REAGAN MCNEILL MD [facility] LAB Z86.711 [id number] 09/04/2016 13:36:00 09/04/2016 16:13:00 DIS Emergency MIRIAM SPENCER OPERATIONS SUPPORT MANAGER [facility] ER FALL/ RIGHT KNEE INJ [id number] 07/17/2016 06:58:00 07/17/2016 23:59:59 CLS Outpatient KAVYA PATRICK [employer]TE[employer]ATION SOFTWARE DEVELOPER [facility] RAD GENERALIZED ABD PAIN [id number] 02/16/2016 19:06:00 02/16/2016 22:12:00 DIS Emergency SHALOM RAMÍREZ [employer]TEGRATION SOFTWARE DEVELOPER [facility] ER CHEST PAIN [id number] 02/15/2016 12:58:00 02/15/2016 23:59:59 CLS Outpatient PAYAL VIGIL [employer]TEGRATION SOFTWARE DEVELOPER [facility] RAD ACUTE RT SIDED THORACIC PAIN [id number] 09/05/2015 07:05:00 09/06/2015 09:30:00 DIS Outpatient REAGAN MCNEILL MD [facility] CATH CAD,HTN HLP SYNCOPE [id number] 09/04/2015 14:08:00 09/04/2015 16:10:00 DIS Emergency SHALOM RAMÍREZ INTEGRATION SOFTWARE DEVELOPER [facility] ER CHEST PAIN [id number] 06/21/2015 15:25:00 06/21/2015 19:18:00 DIS Emergency MICHELE COTTON [facility] ER SOA [id number] 05/23/2015 15:54:00 05/23/2015 23:59:59 CLS Outpatient MIGDALIA JIMENEZ DO [facility] LAB HYPOTHYROIDISM, DISORDER OF THE DIGESTIVE SYSTEM [id number] 05/14/2015 21:53:00 05/15/2015 00:14:00 DIS Emergency NORIS DOHERTY DO [facility] ER POST SURGICAL PAIN [id number] 04/21/2015 12:17:00 04/21/2015 15:18:00 DIS Emergency JESSICA NAM, CHARLES Shannon [facility] ER POST OP/BLOODY DRAINAGE [id number] 04/19/2015 06:00:00 04/20/2015 19:00:00 DIS Outpatient CHAS RODARTE DO S [facility] SDC CRONIC PELVIC PAIN [id number] 04/18/2015 10:51:00 04/18/2015 15:10:00 DIS Outpatient BALDEV LITTLEJOHN DO [facility] SDC ABDOMINAL PAIN [id number] 04/14/2015 10:47:00 04/14/2015 12:53:00 DIS Emergency RAJWINDER NAM, DEWEY Patel [facility] ER L LEG PAIN/WEAKNESS [id number] 04/12/2015 13:39:00 04/12/2015 23:59:59 CLS Outpatient CHEN INFANTE APRN [facility] LAB ACUTE UPPER RESPIRATORY INFECTION [id number] 04/12/2015 13:34:00 04/12/2015 23:59:59 CLS Outpatient CHAS RODARTE DO [facility] PREOP CRONIC PELVIC PAIN [id number] 04/12/2015 13:20:00 04/12/2015 23:59:59 CLS Outpatient BALDEV LITTLEJOHN DO [facility] PREOP ABD. PAIN [id number] 03/21/2015 14:46:00 03/21/2015 23:59:59 CLS Outpatient CHAS RODARTE DO [facility] RAD PELVIC PAIN [id number] 03/21/2015 10:49:00 03/21/2015 23:59:59 CLS Outpatient BALDEV LITTLEJOHN DO [facility] RAD SUPRAPUBIC ABD PAIN [id number] 01/17/2015 10:59:00 01/17/2015 23:59:59 CLS Outpatient CHAS RODARTE DO [facility] RAD IUD NOT FOUND ON SONO [id number] 01/12/2015 10:03:00 01/12/2015 12:10:00 DIS Emergency CELY VIGIL MD [facility] ER POSS BLOOD CLOT IN LUNG [id number] 01/08/2015 15:12:00 01/08/2015 23:59:59 CLS Outpatient CHAS RODARTE DO [facility] RAD FIBROID UTERUS [id number] 01/05/2015 15:46:00 01/05/2015 17:46:00 DIS Emergency SHALOM RAMÍREZ APRN [facility] ER POST COLONOSCOPY [id number] 01/02/2015 13:01:00 01/02/2015 15:55:00 DIS Outpatient BALDEV LITTLEJOHN DO [facility] SDC RECTAL BLEEDING [id number] 12/28/2014 05:53:00 12/28/2014 23:59:59 CLS Outpatient BALDEV LITTLEJOHN DO [facility] PREOP RECTAL BLEEDING [id number] 11/08/2014 14:02:00 11/08/2014 23:59:59 CLS Outpatient CATERINA SHAH DO [facility] RT DYSPNEA [id number] 11/08/2014 20:53:00 11/08/2014 22:18:00 DIS Emergency SHALOM RAMÍREZ INTEGRATION SOFTWARE DEVELOPER [facility] ER ABD PAIN [id number] 10/01/2014 12:06:00 10/01/2014 13:20:00 DIS Emergency MICHELE COTTON [facility] ER CAT BITE [id number] 09/29/2014 17:38:00 09/29/2014 20:24:00 DIS Emergency SHALOM RAMÍREZ APRN [facility] ER POSSIBLE INTERNAL BLEEDING [id number] 09/06/2014 15:19:00 09/06/2014 16:50:00 DIS Emergency MICHELE COTTON [facility] ER L FOOT/KNEE PAIN [id number] 08/08/2014 14:28:00 08/08/2014 23:59:59 CLS Outpatient CHARLES FREED [facility] RAD PAIN IN LIMB [id number] 06/23/2014 02:44:00 06/23/2014 04:43:00 DIS Emergency CHARLES LOPEZ MD [facility] ER ABD PAIN [id number] 06/21/2014 13:14:00 06/21/2014 16:31:00 DIS Emergency NORIS DOHERTY DO [facility] ER VAG BLEEDING [id number] 06/07/2014 19:12:00 06/07/2014 22:17:00 DIS Emergency NORIS DOHERTY DO [facility] ER LOWER R SIDE PAIN [id number] 05/26/2014 13:46:00 05/26/2014 23:59:59 CLS Outpatient CHAS RODARTE DO [facility] RAD RLQ ABD PAIN [id number] 04/21/2014 22:55:00 04/22/2014 01:35:00 DIS Emergency NORIS DHOERTY DO [facility] ER CP [id number] 02/02/2014 06:00:00 02/02/2014 11:25:00 DIS Outpatient CHAS RODARTE DO [facility] SDC PELVIC PAIN [id number] 01/25/2014 10:03:00 01/25/2014 23:59:59 CLS Outpatient CHAS RODARTE DO [facility] PREOP PELVIC PAIN [id number] 01/12/2014 22:23:00 01/13/2014 00:42:00 DIS Emergency NORIS DOHERTY DO [facility] ER CHEST PAIN [id number] 2013 14:06:00 2013 18:02:00 DIS Emergency MICHELE COTTON [facility] ER POSS UTI [id number] 12/05/2013 20:51:00 12/05/2013 22:14:00 DIS Emergency SHALOM RAMÍREZ APRN [facility] ER PAINFUL URINATION [id number] 11/26/2013 11:37:00 11/26/2013 12:18:00 DIS Emergency SHALOM RAMÍREZ APRN [facility] ER UTI [id number] 09/30/2013 19:00:00 10/01/2013 15:30:00 DIS Outpatient REAGAN MCNEILL MD [facility] CATH CHEST PAIN [id number] 09/12/2013 07:58:00 09/12/2013 23:59:59 CLS Outpatient MICHAEL WAGNER [facility] CARD CAD,CP,GERD,ROGERS [id number] 08/16/2013 11:45:00 08/17/2013 13:35:00 DIS Inpatient REAGAN MCNEILL MD [facility] CSD CHEST PAIN [id number] 07/15/2013 11:49:00 07/15/2013 12:17:00 DIS Emergency SHALOM RAMÍREZ INTEGRATION SOFTWARE DEVELOPER [facility] ER RIGHT ANKLE PAIN [id number] 07/11/2013 14:43:00 07/11/2013 23:59:59 CLS Outpatient [id number] 06/10/2013 15:51:00 06/10/2013 23:59:59 CLS Outpatient [id number] 05/19/2013 13:11:00 05/19/2013 23:59:59 CLS Outpatient CHARLES FREED [facility] RAD DX PNEUMONIA [id number] 05/12/2013 21:14:00 05/12/2013 23:15:00 DIS Emergency CHARLES LOPEZ MD [facility] ER SOA [id number] 04/01/2013 12:54:00 04/01/2013 23:59:59 CLS Outpatient CHARLES FREED [facility] CARD SOB, ENLARGED MEDIASTINUM [id number] 02/27/2013 19:11:00 02/27/2013 21:12:00 DIS Emergency MICHELE COTTON [facility] ER NECK/HEAD/BACK PAIN [id number] 01/26/2013 16:39:00 01/26/2013 18:16:00 DIS Emergency CHARLES LOPEZ MD [facility] ER COMPLICATIONS FROM CONCUSSION [id number] 01/11/2013 22:33:00 01/12/2013 03:42:00 DIS Emergency CHARLES LOPEZ MD [facility] ER FELL, HEADACHE,DIZZINESS,NAUSEA [id number] 01/06/2013 09:51:00 01/06/2013 23:59:59 CLS Outpatient GARETT NAM, ACE Summers [facility] LAB RESIDENTIAL MED USE [id number] 01/06/2013 09:20:00 01/06/2013 23:59:59 CLS Outpatient CHARLES FREED [facility] RAD 1.3 CM MASS [id number] 12/24/2012 08:13:00 12/24/2012 23:59:59 CLS Outpatient CHARLES FREED [facility] RAD BREAST PAIN [id number] 11/28/2012 04:59:00 11/28/2012 07:08:00 DIS Emergency WERNER HERNANDEZ MD [facility] ER R SIDE FACIAL PAIN; NO INJ [id number] 11/26/2012 17:26:00 11/26/2012 23:59:59 CLS Outpatient [id number] 10/21/2012 14:42:00 10/21/2012 19:32:00 DIS Emergency CELY VIGIL MD [facility] ER GI BLEED [id number] 10/19/2012 03:00:00 10/19/2012 15:15:00 DIS Outpatient CHARITO NAM, REAGAN Balderas [facility] CATH CHEST PAIN [id number] 10/18/2012 10:23:00 10/18/2012 13:31:00 DIS Emergency JESSICA NAM, CHARLES Shannon [facility] ER CP [id number] 08/10/2015 18:15:00 Document Registration [id number] 04/22/2014 05:17:00 Document Registration [id number] 04/22/2014 05:17:00 Document Registration [id number] 04/22/2014 05:17:00 Document Registration [id number] 04/22/2014 05:17:00 Document Registration [id number] 04/22/2014 05:17:00 Document Registration [id number] 04/22/2014 05:17:00 Document Registration [id number] 08/17/2012 07:41:00 Document Registration [id number] 08/12/2012 12:16:00 Document Registration [id number] 08/08/2012 21:15:00 Document Registration [id number] 06/20/2012 11:44:00 Document Registration [id number] 05/17/2012 09:58:00 Document Registration [id number] 05/05/2012 07:31:00 Document Registration [id number] 04/20/2012 17:20:00 Document Registration [id number] 03/15/2012 15:15:00 Document Registration [id number] 02/03/2012 05:39:00 Document Registration [id number] 01/29/2012 12:58:00 Document Registration [id number] 01/19/2012 19:43:00 Document Registration [id number] 01/17/2012 15:24:00 Document Registration [id number] 12/31/2011 19:30:00 Document Registration [id number] 11/27/2011 09:08:00 Document Registration [id number] 10/29/2011 19:49:00 Document Registration [id number] 08/28/2011 05:48:00 Document Registration [id number] 08/21/2011 14:12:00 Document Registration [id number] 03/04/2011 13:31:00 Document Registration [id number] 10/08/2010 04:55:00 Document Registration [id number] 08/26/2010 20:58:00 Document Registration [id number] 08/15/2010 09:13:00 Document Registration [id number] 09/15/2009 21:29:00 Document Registration [id number] 09/07/2009 12:20:00 Document Registration
[2018-11-13] MEDS ORDERED: CEFDINIR 300 MG (OMNICEF) CAP PO ONE (21:30)
[2018-11-13] MEDS ORDERED: CEFU250T80 PO (21:40)
[2018-11-13 21:48] VITALS: BP 150/121
--- NOTE | 2018-11-13 21:48 | NUR ---
D/C INSTRUCTIONS TO PT. TOLD TO READ ALL PAPERS. SCRIPTS FAXED. PT KNOWS TO STOP MACROBID AND START NEW ANTIBIOTIC.PER V/O DR. PT KNOWS F/U. I WENT OVER THE HANDTYPED BY DR INFORMATION ON THE CHART. PT HAD NO IV. D/C INST SHOW NO SCRIPT FAXED BUT SAID HE DID IT. PT LEFT IN W/C WITH ADULT MALE
== END 2018-11-13 21:48 | disposition home or self-care (01) ==
LOC: EDUNIT# 19:29 → ER 19:31
DX: N39.0 Urinary tract infection, site not specified (principal); J45.909 Unspecified asthma, uncomplicated; G47.30 Sleep apnea, unspecified; E78.00 Pure hypercholesterolemia, unspecified; I25.10 Atherosclerotic heart disease of native coronary artery without angina pectoris; G43.909 Migraine, unspecified, not intractable, without status migrainosus; G62.9 Polyneuropathy, unspecified; K21.9 Gastro-esophageal reflux disease without esophagitis; E03.9 Hypothyroidism, unspecified; Z85.038 Personal history of other malignant neoplasm of large intestine; Z80.0 Family history of malignant neoplasm of digestive organs; Z87.442 Personal history of urinary calculi; Z90.49 Acquired absence of other specified parts of digestive tract; Z95.5 Presence of coronary angioplasty implant and graft; Z90.710 Acquired absence of both cervix and uterus; Z88.0 Allergy status to penicillin; Z88.5 Allergy status to narcotic agent; Z88.6 Allergy status to analgesic agent; Z88.8 Allergy status to other drugs, medicaments and biological substances; Z79.82 Long term (current) use of aspirin; Z79.02 Long term (current) use of antithrombotics/antiplatelets; Z79.01 Long term (current) use of anticoagulants; Z82.49 Family history of ischemic heart disease and other diseases of the circulatory system
CPT/HCPCS: 36415; 81000; 87070; 87077; 87088; 87186; 87205; 87210; 87491; 87591; 99284

== ENCOUNTER → 2018-12-15 | Outpatient (CLI) | payer MEDICARE, MEDICAID ==
[~2018-12-15] MED LIST changes: +CEFU250T80 PO; +OMEP20CA13 PO; -TIZA4TAB3; +TIZA4TAB4
--- NOTE | 2018-12-15 15:37 | Diagnostic Imaging Report ---
PROCEDURE: CT abdomen and pelvis without contrast. TECHNIQUE: Multiple contiguous axial images were obtained through the abdomen and pelvis without the use of intravenous contrast. Auto Exposure Controls were utilized during the CT exam to meet ALARA standards for radiation dose reduction. INDICATION: Dysuria and hematuria for one month. COMPARISON: Correlation is made with prior CT from 11/05/2018. FINDINGS: Lung bases demonstrate some linear atelectasis or scarring in bilateral lower lobes. Stomach is moderately distended. No liver mass is seen. Gallbladder is surgically absent. No biliary ductal dilatation is identified. The pancreas and spleen are unremarkable. No adrenal mass is detected. No renal calculi or hydronephrosis is detected. Aorta is calcified but nonaneurysmal. Bowel loops appear nonobstructed. There is diverticulosis of the sigmoid colon but no evidence of acute diverticulitis. There is no free fluid. Bladder is decompressed. No inflammatory changes in the abdomen or pelvis is identified. IMPRESSION: 1. Moderate distention of the stomach with ingested material. 2. Uncomplicated sigmoid diverticulosis. 3. No evidence of urinary tract calculi or obstruction. Dictated by: Dictated on workstation # [id number]
== END ==
LOC: RAD 14:43
PROVIDERS: ATTEND Nurse Practitioner Family
DX: T18.9XXA Foreign body of alimentary tract, part unspecified, initial encounter (principal); K57.30 Diverticulosis of large intestine without perforation or abscess without bleeding; K31.89 Other diseases of stomach and duodenum; R31.9 Hematuria, unspecified
CPT/HCPCS: 74176

== ENCOUNTER 2019-01-31 21:43 | Emergency (ER) | payer MEDICARE, MEDICAID ==
[~2019-01-31] VITALS: Ht 157 cm; Wt 131.0 kg
[2019-01-31] MEDS ORDERED: ASPIRIN 81 MG CHEW (CHILDREN'S ASA) ONE (22:13)
--- NOTE | 2019-01-31 22:14 | ED Upper Extremity ---
General Stated Complaint: LEFT ARM SWELLING Source: patient Exam Limitations: no limitations History of Present Illness Date Seen by Provider: Jan 31, 2019 Time Seen by Provider: 22:11 Initial Comments 63-year-old female who presents to the emergency room with complaints of left wrist swelling to the dorsal surface for the past day. She is concerned that she might have a blood clot in her left wrist. She also reports that she's had chest pain for the past 2 days but chest pain has resolved been pain free for the past 24 hours. She denies injury or pain to the left wrist. She denies shortness of breath, lightheadedness, nausea, vomiting. Onset: this morning Pain/Injury Location: left wrist Allergies and Home Medications Allergies Coded Allergies: methylprednisolone (Verified Allergy, Mild, 11/05/18) Penicillins (Unverified Allergy, Unknown, 11/05/18) atorvastatin (Verified Allergy, Unknown, 11/05/18) isosorbide (Verified Allergy, Unknown, 11/05/18) ketorolac (Verified Allergy, Unknown, ITCHING, 11/05/18) promethazine (Unverified Allergy, Unknown, hallucinations, 11/05/18) venom-honey bee (Unverified Allergy, Unknown, 11/05/18) Uncoded Allergies: TAPE (Allergy, Unknown, 08/16/13) Home Medications Acetaminophen 500 Mg Tablet, 500 MG PO BID PRN for PAIN-MILD, (Reported) Albuterol Sulfate 18 Gm Hfa.aer.ad, 1 PUFF INH Q4H PRN for SHORTNESS OF BREATH, (Reported) Albuterol Sulfate 2.5 Mg/3 Ml Vial.neb, 2.5 MG NEB Q4H PRN for SHORTNESS OF BREATH, (Reported) Aspirin 81 Mg Tablet.dr, 81 MG PO DAILY Prescribed by: REAGAN MCNEILL on 08/20/17 0800 Cefuroxime Axetil 250 Mg Tablet, 250 MG PO BID Prescribed by: SHALOM RAMÍREZ on 11/13/182139 Clopidogrel Bisulfate 75 Mg Tablet, 75 MG PO DAILY Prescribed by: REAGAN MCNEILL on 08/20/17 0800 Hydrocodone Bit/Acetaminophen 1 Ea Tablet, 1 EACH PO Q6H PRN for CHEST PAIN Prescribed by: ALEJANDRA MARTIN on 10/05/18 184 Hydrocodone/Acetaminophen 1 Each Tablet, 1 TAB PO Q6H, (Reported) Levothyroxine Sodium 150 Mcg Tablet, 150 MCG PO HS, (Reported) Nitrofurantoin Monohyd/M-Cryst 100 Mg Capsule, 100 MG PO BID Prescribed by: NORIS DOHERTY on 11/05/182008 Nitroglycerin 0.4 Mg Tab.subl, 0.4 MG SL PRN 1 TAB SUBLINGUAL Q5MIN. RETURN TO THE ER IF YOUR CHEST PAIN CONTINUES OR IS UNRESPLVED. Prescribed by: SHALOM RAMÍREZ on 08/20/17 1350 Omeprazole 20 Mg Capsule.dr, 20 MG PO DAILY, (Reported) LAST FILLED #30 04-15-17 Ondansetron 8 Mg Tab.rapdis, 8 MG PO Q6H Prescribed by: NORIS DOHERTY on 11/05/182008 Warfarin Sodium 5 Mg Tablet, 5 MG PO DAILY, (Reported) Patient Home Medication List Home Medication List Reviewed: Yes Review of Systems Constitutional: see HPI; No chills, No fever Cardiovascular: see HPI, chest pain (chest pain yesterday) Musculoskeletal: see HPI, joint swelling (left wrist) All Other Systems Reviewed Negative Unless Noted: Yes Past Hwqanhk-Hlahyt-Hzoftt Hx Past Med/Social Hx: Reviewed Nursing Past Med/Soc Hx Patient Social History 2nd Hand Smoke Exposure: No Recent Foreign Travel: No Contact w/Someone Who Travel: No Recent Hopitalizations: No Immunizations Up To Date Tetanus Booster (TDap): Less than 5yrs Date of Pneumonia Vaccine: Aug 17, 2012 Date of Influenza Vaccine: May 06, 2012 Seasonal Allergies Seasonal Allergies: No Past Medical History Surgeries: Yes ("neck" Coronary Stent x2) Appendectomy, Coronary Stent, Gallbladder, Hysterectomy Respiratory: Yes Asthma, Sleep Apnea Currently Using CPAP: No Currently Using BIPAP: No Cardiac: Yes ("heart Disease") Coronary Artery Disease, High Cholesterol Neurological: Yes (NEUROPATHY ARMS & FEET) Headaches /Migraines Reproductive Disorders: Yes (FIBROIDS, CHRONIC PELVIC PAIN ) 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 Sexually Transmitted Disease: No HIV/AIDS: No Genitourinary: No Kidney Stones Gastrointestinal: No Gastroesophageal Reflux Musculoskeletal: No Degenerate Disk Disease, Arthritis, Back Injury, Chronic Back Pain, Spasms Endocrine: No Hypothyroidsim HEENT: Yes (wears glasses for reading) Loss of Vision: Bilateral Hearing Impairment: Denies Cancer: No Colon Psychosocial: No Integumentary: No Blood Disorders: Yes (BLOOD CLOTS) Adverse Reaction/Blood Tranf: No Family Medical History Reviewed Nursing Family Hx Arthritis G8 SISTER Cardiovascular disease 03 FATHER Colon cancer 03 MOTHER Completed stroke 03 MOTHER Hypertension 03 MOTHER G8 BROTHER Myocardial infarction 03 MOTHER Thyroid disease G8 SISTER Physical Exam Vital Signs Vital Signs - First Documented 01/31/19 21:49 O2 Delivery Room Air Capillary Refill : Height, Weight, BMI Height: 5'2.00" Weight: 297lbs. 8.0oz. [id number]; 57.7 BMI Method:Stated General Appearance: WD/WN, no apparent distress Cardiovascular: normal peripheral pulses, regular rate, rhythm, no edema, no gallop, no JVD, no murmur Respiratory: chest non-tender, lungs clear, normal breath sounds, no res piratory distress, no accessory muscle use Wrist: Yes swelling (the dorsal surface of the left wrist normal capillary refill and distal pulses.) Neurologic/Tendon: normal sensation Neurologic/Psychiatric: alert, normal mood/affect, oriented x 3 Skin: normal color, warm/dry Progress/Results/Core Measures Results/Orders Lab Results Laboratory Tests Test 01/31/19 22:17 Range/Units White Blood Count 9.8 4.3-11.0 10^3/uL Red Blood Count 4.58 4.35-5.85 10^6/uL Hemoglobin 13.4 11.5-16.0 G/DL Hematocrit 42 35-52 % Mean Corpuscular Volume 92 80-99 FL Mean Corpuscular Hemoglobin 29 25-34 PG Mean Corpuscular Hemoglobin Concent 32 32-36 G/DL Red Cell Distribution Width 15.5 H 10.0-14.5 % Platelet Count 244 130-400 10^3/uL Mean Platelet Volume 10.5 H 7.4-10.4 FL Neutrophils (%) (Auto) 68 42-75 % Lymphocytes (%) (Auto) 24 12-44 % Monocytes (%) (Auto) 8 0-12 % Eosinophils (%) (Auto) 1 0-10 % Basophils (%) (Auto) 0 0-10 % Neutrophils # (Auto) 6.7 1.8-7.8 X 10^3 Lymphocytes # (Auto) 2.3 1.0-4.0 X 10^3 Monocytes # (Auto) 0.8 0.0-1.0 X 10^3 Eosinophils # (Auto) 0.1 0.0-0.3 10^3/uL Basophils # (Auto) 0.0 0.0-0.1 10^3/uL Prothrombin Time 20.9 H 12.2-14.7 SEC INR Comment 1.7 H 0.8-1.4 Activated Partial Thromboplast Time 34 24-35 SEC D-Dimer 0.33 0.00-0.49 UG/ML Sodium Level 140 135-145 MMOL/L Potassium Level 4.2 3.6-5.0 MMOL/L Chloride Level 105 98-107 MMOL/L Carbon Dioxide Level 24 21-32 MMOL/L Anion Gap 11 5-14 MMOL/L Blood Urea Nitrogen 9 7-18 MG/DL Creatinine 0.98 0.60-1.30 MG/DL Estimat Glomerular Filtration Rate 58 BUN/Creatinine Ratio 9 Glucose Level 188 H 70-105 MG/DL Calcium Level 9.1 8.5-10.1 MG/DL Corrected Calcium 9.0 8.5-10.1 MG/DL Magnesium Level 2.2 1.6-2.4 MG/DL Total Bilirubin 0.3 0.1-1.0 MG/DL Aspartate Amino Transf (AST/SGOT) 21 5-34 U/L Alanine Aminotransferase (ALT/SGPT) 18 0-55 U/L Alkaline Phosphatase 109 40-136 U/L Myoglobin 26.4 10.0-92.0 NG/ML Troponin I < 0.028 <0.028 NG/ML Total Protein 7.7 6.4-8.2 GM/DL Albumin 4.1 3.2-4.5 GM/DL My Orders Orders - BERNOT,ROSINA Cbc With Automated Diff (01/31/19 22:10) Magnesium (01/31/19 22:10) Chest 1 View, Ap/Pa Only (01/31/19 22:10) Ekg Tracing (01/31/19 22:10) Cardiac Profile 1 (01/31/19 22:10) Comprehensive Metabolic Panel (01/31/19 22:10) Myoglobin Serum (01/31/19 22:10) Protime With Inr (01/31/19 22:10) Partial Thromboplastin Time (01/31/19 22:10) O2 (01/31/19 22:10) Monitor-Rhythm Ecg Trace Only (01/31/19 22:10) Lipid Panel (02/01/19 06:00) Ed Iv/Invasive Line Start (01/31/19 22:10) Fibrin Degradation Products (01/31/19 22:10) Aspirin Chewable Tablet (Baby Aspirin Ch (01/31/19 22:30) Aspirin Chewable Tablet (Baby Aspirin Ch (01/31/19 22:13) Medications Given in ED Current Medications Medications Dose Ordered Sig/Marcio Route Start Time Stop Time Status Last Admin Dose Admin Aspirin 324 mg ONCE ONCE PO 01/31/19 22:30 01/31/19 22:31 DC 01/31/19 22:23 324 MG Vital Signs/I&O 01/31/19 21:49 O2 Delivery Room Air Departure Impression Primary Impression: Swelling of joint, wrist, left Additional Impression: Chest pain Disposition: 01 HOME, SELF-CARE Condition: Stable/Unchanged Departure-Patient Inst. Decision time for Depature: 22:53 Referrals: NO,LOCAL PHYSICIAN (PCP) Primary Care Physician NEVA HU APRN (Family) Primary Care Physician Patient Instructions: Chest Pain Add. Discharge Instructions: Resume your home medications as previously prescribed. Follow-up with her primary care provider within 1 week for recheck. Return back to the emergency room for worsening symptoms or concerns as needed. ROSINA VICENTE Jan 31, 2019 22:14
[2019-01-31 22:23] LABS: BASOPHILS % (AUTO) 0 % (0-10); EOSINOPHILS # (AUTO) 0.1 10^3/uL (0.0-0.3); EOSINOPHILS % (AUTO) 1 % (0-10); HEMATOCRIT 42 % (35-52); HEMOGLOBIN 13.4 G/DL (11.5-16.0); LYMPHOCYTES # (AUTO) 2.3 X 10^3 (1.0-4.0); LYMPHOCYTES % (AUTO) 24 % (12-44); MEAN CORPUSCULAR HEMOGLOBIN 29 PG (25-34); MEAN CORPUSCULAR HGB CONC 32 G/DL (32-36); MEAN CORPUSCULAR VOLUME 92 FL (80-99); MEAN PLATELET VOLUME 10.5 FL (7.4-10.4); MONOCYTES # (AUTO) 0.8 X 10^3 (0.0-1.0); MONOCYTES % (AUTO) 8 % (0-12); NEUTROPHILS # (AUTO) 6.7 X 10^3 (1.8-7.8); NEUTROPHILS % (AUTO) 68 % (42-75); PLATELET COUNT 244 10^3/uL (130-400); RED CELL DISTRIBUTION WIDTH 15.5 % (10.0-14.5); WHITE BLOOD COUNT 9.8 10^3/uL (4.3-11.0)
[2019-01-31] MEDS ORDERED: ASPIRIN 81 MG CHEW (CHILDREN'S ASA) PO ONE (22:30)
[2019-01-31 22:34] LABS: INR 1.7 (0.8-1.4); PROTHROMBIN TIME PATIENT 20.9 SEC (12.2-14.7)
[2019-01-31 22:39] LABS: ALANINE AMINOTRANSFERASE 18 U/L (0-55); ALBUMIN 4.1 GM/DL (3.2-4.5); ALKALINE PHOSPHATASE 109 U/L (40-136); BILIRUBIN,TOTAL 0.3 MG/DL (0.1-1.0); BUN/CREATININE RATIO 9; CALCIUM 9.1 MG/DL (8.5-10.1); CARBON DIOXIDE 24 MMOL/L (21-32); CHLORIDE 105 MMOL/L (98-107); CREATININE SERUM 0.98 MG/DL (0.60-1.30); GFR ESTIMATED 58; GLUCOSE 188 MG/DL (70-105); MAGNESIUM 2.2 MG/DL (1.6-2.4); POTASSIUM 4.2 MMOL/L (3.6-5.0); SODIUM 140 MMOL/L (135-145); TOTAL PROTEIN 7.7 GM/DL (6.4-8.2)
[2019-01-31 23:24] VITALS: BP 116/68
--- NOTE | 2019-02-01 07:08 | Diagnostic Imaging Report ---
Indication: Chest pain and arm swelling. Comparison made with prior examination from 11/05/2018. Findings: There's cardiomegaly. Mediastinum is unremarkable. Lungs are clear. There is no pleural effusion or pneumothorax. Impression: Cardiomegaly and minimal venous congestion, otherwise unremarkable. Dictated by: Dictated on workstation # [id number]
== END 2019-01-31 23:24 | disposition home or self-care (01) ==
LOC: EDUNIT# 21:43 → ER 21:44
DX: M25.432 Effusion, left wrist (principal); R07.9 Chest pain, unspecified; J45.909 Unspecified asthma, uncomplicated; G47.30 Sleep apnea, unspecified; I25.10 Atherosclerotic heart disease of native coronary artery without angina pectoris; E78.00 Pure hypercholesterolemia, unspecified; G43.909 Migraine, unspecified, not intractable, without status migrainosus; K21.9 Gastro-esophageal reflux disease without esophagitis; E03.9 Hypothyroidism, unspecified; Z85.038 Personal history of other malignant neoplasm of large intestine; Z87.442 Personal history of urinary calculi; Z88.8 Allergy status to other drugs, medicaments and biological substances; Z88.6 Allergy status to analgesic agent; Z88.0 Allergy status to penicillin; Z79.82 Long term (current) use of aspirin; Z79.02 Long term (current) use of antithrombotics/antiplatelets; Z79.01 Long term (current) use of anticoagulants; Z90.49 Acquired absence of other specified parts of digestive tract; Z95.5 Presence of coronary angioplasty implant and graft; Z90.710 Acquired absence of both cervix and uterus; Z82.49 Family history of ischemic heart disease and other diseases of the circulatory system; Z80.0 Family history of malignant neoplasm of digestive organs
CPT/HCPCS: 36415; 71045; 80053; 83735; 83874; 84484; 85025; 85379; 85610; 85730; 93005; 93041

== ENCOUNTER 2019-02-06 14:54 | Emergency (ER) | payer MEDICARE, MEDICAID ==
[~2019-02-06] VITALS: Ht 157.5 cm; Wt 131.8 kg
--- NOTE | 2019-02-06 15:11 | ED Chest Pain ---
General Stated Complaint: CHEST PAIN Source: patient Exam Limitations: no limitations (JES TOLEDO DO) History of Present Illness Date Seen by Provider: Feb 06, 2019 Time Seen by Provider: 15:00 Initial Comments The patient is a obese 63-year-old female who presents for evaluation of chest pain. She states that it started over a week ago and got noticeably worse today. She applied some nitroglycerin patches at home and reports little relief. She states that she is 2 cardiac stents and that her last cardiac catheter was about a year ago. She did not take any aspirin today. She does report some shortness of breath and does have a history of COPD. She also has a history of blood clots and states that she was in the emergency department recently to rule out PEs. She is alert and oriented 4, calm, and appears to be in no distress this time. Timing/Duration: 1 week Severity/Quality: moderate Location: other (left upper chest) Radiation: arms (left) Activities at Onset: none ASA po HEAD OF MOBILE: No NTG SL HEAD OF MOBILE: No Associated Symptoms: shortness of breath (JES TOLEDO DO) Allergies and Home Medications Allergies Coded Allergies: methylprednisolone (Verified Allergy, Mild, 11/05/18) Penicillins (Unverified Allergy, Unknown, 11/05/18) atorvastatin (Verified Allergy, Unknown, 11/05/18) isosorbide (Verified Allergy, Unknown, 11/05/18) ketorolac (Verified Allergy, Unknown, ITCHING, 11/05/18) promethazine (Unverified Allergy, Unknown, hallucinations, 11/05/18) venom-honey bee (Unverified Allergy, Unknown, 11/05/18) Uncoded Allergies: TAPE (Allergy, Unknown, 08/16/13) Home Medications Acetaminophen 500 Mg Tablet, 500 MG PO BID PRN for PAIN-MILD, (Reported) Albuterol Sulfate 18 Gm Hfa.aer.ad, 1 PUFF INH Q4H PRN for SHORTNESS OF BREATH, (Reported) Albuterol Sulfate 2.5 Mg/3 Ml Vial.neb, 2.5 MG NEB Q4H PRN for SHORTNESS OF BREATH, (Reported) Aspirin 81 Mg Tablet.dr, 81 MG PO DAILY Prescribed by: REAGAN MCNEILL on 08/20/17 0800 Cefuroxime Axetil 250 Mg Tablet, 250 MG PO BID Prescribed by: SHALOM RAMÍREZ on 11/13/18 2140 Clopidogrel Bisulfate 75 Mg Tablet, 75 MG PO DAILY Prescribed by: REAGAN MCNEILL on 08/20/17 0800 Hydrocodone Bit/Acetaminophen 1 Ea Tablet, 1 EACH PO Q6H PRN for CHEST PAIN Prescribed by: ALEJANDRA MARTIN on 10/05/18 1849 Hydrocodone/Acetaminophen 1 Each Tablet, 1 TAB PO Q6H, (Reported) Levothyroxine Sodium 150 Mcg Tablet, 150 MCG PO HS, (Reported) Nitrofurantoin Monohyd/M-Cryst 100 Mg Capsule, 100 MG PO BID Prescribed by: NORIS DOHERTY on 11/05/182008 Nitroglycerin 0.4 Mg Tab.subl, 0.4 MG SL PRN 1 TAB SUBLINGUAL Q5MIN. RETURN TO THE ER IF YOUR CHEST PAIN CONTINUES OR IS UNRESPLVED. Prescribed by: SHALOM RAMÍREZ on 08/20/17 1350 Omeprazole 20 Mg Capsule.dr, 20 MG PO DAILY, (Reported) LAST FILLED #30 04-15-17 Ondansetron 8 Mg Tab.rapdis, 8 MG PO Q6H Prescribed by: NORIS DOHERTY on 11/05/182008 Warfarin Sodium 5 Mg Tablet, 5 MG PO DAILY, (Reported) Patient Home Medication List Home Medication List Reviewed: Yes (JES TOLEDO DO) Review of Systems Review of Systems Constitutional: no symptoms reported EENTM: No Symptoms Reported Respiratory: Shortness of Air Cardiovascular: Chest Pain Gastrointestinal: No Symptoms Reported Genitourinary: No Symptoms Reported Musculoskeletal: no symptoms reported Skin: no symptoms reported Psychiatric/Neurological: No Symptoms Reported Endocrine: No Symptoms Reported Hematologic/Lymphatic: No Symptoms Reported (JES TOLEDO DO) All Other Systems Reviewed Negative Unless Noted: Yes (JES TOLEDO DO) Past Lqhwyhk-Ganfsw-Jvghkh Hx Past Med/Social Hx: Reviewed Nursing Past Med/Soc Hx (JES TOLEDO DO) Patient Social History 2nd Hand Smoke Exposure: No Recent Hopitalizations: No (JES TOLEDO DO) Immunizations Up To Date Tetanus Booster (TDap): Less than 5yrs PED Vaccines UTD: Yes Date of Pneumonia Vaccine: Aug 17, 2012 Date of Influenza Vaccine: May 06, 2012 (JES TOLEDO DO) Seasonal Allergies Seasonal Allergies: No (JES TOLEDO DO) Past Medical History Surgeries: Yes Appendectomy, Cardiac, Coronary Stent, Gallbladder, Hysterectomy, Orthopedic, Thyroidectomy Respiratory: Yes (HAS CPAP--DOES NOT USE ON REGULAR BASIS; P.E. X2) Asthma, Pulmonary Embolism, Sleep Apnea Currently Using CPAP: No Currently Using BIPAP: No Cardiac: Yes (P.E. 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 Sexually Transmitted Disease: No HIV/AIDS: No Genitourinary: Yes Bladder Infection, Kidney Stones Gastrointestinal: Yes (S/P GENI) Gastroesophageal Reflux, Chronic Constipation, Gall Bladder Disease Musculoskeletal: Yes Degenerate Disk Disease, Arthritis, Back Injury, Chronic Back Pain, Spasms Endocrine: Yes (MORBID OBESITY; THYROIDECTOMY) Hypothyroidsim HEENT: Yes Loss of Vision: Bilateral Hearing Impairment: Denies Cancer: No Colon Psychosocial: No Integumentary: No Blood Disorders: Yes (BLOOD CLOTS-DVT/P.E.'S) Adverse Reaction/Blood Tranf: No (JES TOLEDO DO) Family Medical History Arthritis G8 SISTER Cardiovascular disease 03 FATHER Colon cancer 03 MOTHER Completed stroke 03 MOTHER Hypertension 03 MOTHER G8 BROTHER Myocardial infarction 03 MOTHER Thyroid disease G8 SISTER Physical Exam Vital Signs Vital Signs - First Documented 02/06/19 02/06/19 15:00 15:15 Temp 36.1 Pulse 76 Resp 20 B/P (MAP) 138/59 (85) Pulse Ox 95 O2 Delivery Room Air (MALIKA LY MD) Vital Signs Capillary Refill : (JES TOLEDO DO) Height, Weight, BMI Height: 5'2.00" Weight: 297lbs. 8.0oz. 134.991713kr; 53.00 BMI Method:Stated General Appearance: No Apparent Distress, WD/WN, Obese HEENT: PERRL/EOMI, Normal ENT Inspection Neck: Full Range of Motion, Normal Inspection, Non Tender, Supple Respiratory: Chest Non Tender, Lungs Clear, Normal Breath Sounds, No Accessory Muscle Use, No Respiratory Distress Cardiovascular: Regular Rate, Rhythm, No Edema, No JVD Gastrointestinal: Normal Bowel Sounds, Non Tender, Soft Extremity: Normal Capillary Refill, Normal Inspection, Non Tender, No Calf Tenderness Neurologic/Psychiatric: Alert, Oriented x3, No Motor/Sensory Deficits, Normal Mood/Affect Skin: Normal Color, Warm/Dry (JES TOLEDO DO) Progress/Results/Core Measures Results/Orders Lab Results Laboratory Tests Test 02/06/19 15:10 02/06/19 17:35 Range/Units White Blood Count 7.6 4.3-11.0 10^3/uL Red Blood Count 4.44 4.35-5.85 10^6/uL Hemoglobin 13.1 11.5-16.0 G/DL Hematocrit 41 35-52 % Mean Corpuscular Volume 93 80-99 FL Mean Corpuscular Hemoglobin 30 25-34 PG Mean Corpuscular Hemoglobin Concent 32 32-36 G/DL Red Cell Distribution Width 15.0 H 10.0-14.5 % Platelet Count 225 130-400 10^3/uL Mean Platelet Volume 10.2 7.4-10.4 FL Neutrophils (%) (Auto) 75 42-75 % Lymphocytes (%) (Auto) 17 12-44 % Monocytes (%) (Auto) 7 0-12 % Eosinophils (%) (Auto) 1 0-10 % Basophils (%) (Auto) 0 0-10 % Neutrophils # (Auto) 5.7 1.8-7.8 X 10^3 Lymphocytes # (Auto) 1.3 1.0-4.0 X 10^3 Monocytes # (Auto) 0.5 0.0-1.0 X 10^3 Eosinophils # (Auto) 0.1 0.0-0.3 10^3/uL Basophils # (Auto) 0.0 0.0-0.1 10^3/uL Prothrombin Time 24.0 H 12.2-14.7 SEC INR Comment 2.1 H 0.8-1.4 Activated Partial Thromboplast Time 33 24-35 SEC D-Dimer 0.51 H 0.00-0.49 UG/ML Sodium Level 140 135-145 MMOL/L Potassium Level 4.3 3.6-5.0 MMOL/L Chloride Level 101 98-107 MMOL/L Carbon Dioxide Level 26 21-32 MMOL/L Anion Gap 13 5-14 MMOL/L Blood Urea Nitrogen 9 7-18 MG/DL Creatinine 0.71 0.60-1.30 MG/DL Estimat Glomerular Filtration Rate > 60 BUN/Creatinine Ratio 13 Glucose Level 130 H 70-105 MG/DL Calcium Level 9.2 8.5-10.1 MG/DL Corrected Calcium 9.3 8.5-10.1 MG/DL Total Bilirubin 0.2 0.1-1.0 MG/DL Aspartate Amino Transf (AST/SGOT) 22 5-34 U/L Alanine Aminotransferase (ALT/SGPT) 21 0-55 U/L Alkaline Phosphatase 107 40-136 U/L Troponin I < 0.30 < 0.30 <0.30 NG/ML Total Protein 7.3 6.4-8.2 GM/DL Albumin 3.9 3.2-4.5 GM/DL (MALIKA LY MD) Medications Given in ED Current Medications Medications Dose Ordered Sig/Marcio Route Start Time Stop Time Status Last Admin Dose Admin Aspirin 324 mg ONCE ONCE PO 02/06/19 15:15 02/06/19 15:16 DC 02/06/19 15:24 324 MG Iohexol 125 ml ONCE ONCE IV 02/06/19 16:30 02/06/19 16:31 DC 02/06/19 16:53 125 ML Sodium Chloride 10 ml NEEDED PRN IV 02/06/19 16:30 02/06/19 16:53 10 ML Sodium Chloride 100 ml ONCE ONCE IV 02/06/19 16:30 02/06/19 16:31 DC 02/06/19 16:53 100 ML (MALIKA LY MD) Vital Signs/I&O 02/06/19 02/06/19 15:00 15:15 Temp 36.1 Pulse 76 Resp 20 B/P (MAP) 138/59 (85) Pulse Ox 95 O2 Delivery Room Air Room Air (MALIKA LY MD) Progress Progress Note : Progress Note @1612 - I have been informed by the warehouse general laborer that there is a problem with the troponin and BNP machine. The patient is feeling better and is stable. Her blood will be sent to [facility] for analysis. @1730 - Trop is negative. @1745 - Pt reports feeling significantly better. CTA chest is negative for PE or other acute pathology. Awaiting second trop which is being drawn now. @1800 - Pt care transferred to Dr. Dipika Ly at this time. Anticipate discharge home as pt is now feeling much better. (JES TOLEDO DO) Progress Note : Time: 18:44 Progress Note @1840 - I assumed care from Dr. Toledo at shift change. I agree with the above history and physical examination. In brief, this is a 63-year-old female with a significant coronary artery disease history including multiple stents in place. She presents with concern for 1 week of sharp, left-sided chest discomfort which is nonradiating. Discomfort got worse today so the patient placed a nitroglycerin patch on her chest and came to the emergency department for evaluation. She states pain is better after application of the nitroglycerin patch. She rates it a 3 out of 10 at present. Associated nausea today. No associated vomiting, shortness of breath, abdominal pain, flank pain, back pain. Patient is resting comfortably on my reassessment. Large workup including CT angiography of the chest and 2 set cardiac enzyme testing reassuring. EKG reviewed by me and nonacute. I discussed with the patient and her that my recommendation was for admission given persistent chest discomfort that was improved with nitroglycerin in the setting of known coronary artery disease with multiple stents in place what the patient states is known occlusive coronary disease. Patient however is reassured by her negative workup here today and would prefer to go home and follow-up with her shank archer in the clinic tomorrow. I counseled her and her family that there is a risk for missed pathology including ACS with this approach. She does agree to accept this risk and be responsible for it in its entirety. As noted, she plans to go home and follow up tomorrow with her primary care physician and with her shank archer in [place]. She understands that if she feels worse is that of better or develops other new symptoms of concern that she needs to return immediately for reevaluation. All questions are answered. (MALIKA LY MD) EKG : Comment Normal sinus rhythm, rate of 65, normal axis, no acute ischemic findings noted, no STEMI, reviewed and interpreted by myself (JES TOLEDO DO) Diagnostic Imaging Comments [email or web address] [place], [place] NAME: OTONIEL DUNAWAY [facility] REC#: [id number] PT STATUS: REG ER : 1955 PHYSICIAN: JES TOLEDO DO ADMIT DATE: 02/06/19/ER FS Draft Date of Exam:02/06/19 CHEST 1 VIEW AP/PA ONLY CLINICAL INDICATION: Patient with chest pain and shortness of breath. EXAM: Portable chest x-ray, upright view. COMPARISONS: Chest x-ray dated 01/31/2019. FINDINGS: Lungs/pleura: There is mild bibasilar atelectasis. Otherwise, lungs are clear. There is no pneumothorax. There is no pleural effusion. Mediastinum: Unremarkable. Pulmonary vasculature: Unremarkable. Heart: Stable cardiomegaly. Bones/extrathoracic soft tissue: There are degenerative spurs involving the visualized thoracic spine. Anterior cervical disc fusion involving the lower cervical spine is again seen. IMPRESSION: 1: Stable chest x-ray exam with no interval radiographic evidence of acute cardiopulmonary process. 2: Stable cardiomegaly with no significant pulmonary vascular congestion. Dictated on workstation # [id number] Dict: 02/06/19 1522 Trans: 02/06/19 1528 [id number] Interpreted by: KELLY DRIVER MD Electronically signed by: (JES TOLEDO DO) Departure Impression Primary Impression: Other chest pain Disposition: 01 HOME, SELF-CARE Condition: Stable Departure-Patient Inst. Referrals: NO,LOCAL PHYSICIAN (PCP) Primary Care Physician NEVA HU APRN (Family) Primary Care Physician Patient Instructions: Chest Pain (DC) Add. Discharge Instructions: We discussed admission to the hospital which was my recommendation to you this evening, but you would prefer to go home to follow up with your shank archer and your PCP tomorrow. Please follow up as discussed. Return right away for worsened symptoms or other new concern. JES TOLEDO DO Feb 06, 2019 15:11 MALIKA LY MD Feb 06, 2019 18:48
[2019-02-06] MEDS ORDERED: ASPIRIN 81 MG CHEW (CHILDREN'S ASA) PO ONE (15:15)
[2019-02-06 15:20] LABS: BASOPHILS % (AUTO) 0 % (0-10); EOSINOPHILS % (AUTO) 1 % (0-10); HEMATOCRIT 41 % (35-52); HEMOGLOBIN 13.1 G/DL (11.5-16.0); LYMPHOCYTES # (AUTO) 1.3 X 10^3 (1.0-4.0); LYMPHOCYTES % (AUTO) 17 % (12-44); MEAN CORPUSCULAR HEMOGLOBIN 30 PG (25-34); MEAN CORPUSCULAR HGB CONC 32 G/DL (32-36); MEAN CORPUSCULAR VOLUME 93 FL (80-99); MEAN PLATELET VOLUME 10.2 FL (7.4-10.4); MONOCYTES % (AUTO) 7 % (0-12); NEUTROPHILS # (AUTO) 5.7 X 10^3 (1.8-7.8); NEUTROPHILS % (AUTO) 75 % (42-75); PLATELET COUNT 225 10^3/uL (130-400); WHITE BLOOD COUNT 7.6 10^3/uL (4.3-11.0)
[2019-02-06 15:21] LABS: EOSINOPHILS # (AUTO) 0.1 10^3/uL (0.0-0.3); MONOCYTES # (AUTO) 0.5 X 10^3 (0.0-1.0)
--- NOTE | 2019-02-06 15:29 | Diagnostic Imaging Report ---
CLINICAL INDICATION: Patient with chest pain and shortness of breath. EXAM: Portable chest x-ray, upright view. COMPARISONS: Chest x-ray dated 01/31/2019. FINDINGS: Lungs/pleura: There is mild bibasilar atelectasis. Otherwise, lungs are clear. There is no pneumothorax. There is no pleural effusion. Mediastinum: Unremarkable. Pulmonary vasculature: Unremarkable. Heart: Stable cardiomegaly. Bones/extrathoracic soft tissue: There are degenerative spurs involving the visualized thoracic spine. Anterior cervical disc fusion involving the lower cervical spine is again seen. IMPRESSION: 1: Stable chest x-ray exam with no interval radiographic evidence of acute cardiopulmonary process. 2: Stable cardiomegaly with no significant pulmonary vascular congestion. Dictated by: Dictated on workstation # [id number]
[2019-02-06 15:39] LABS: INR 2.1 (0.8-1.4)
[2019-02-06 15:42] LABS: ALANINE AMINOTRANSFERASE 21 U/L (0-55); ALBUMIN 3.9 GM/DL (3.2-4.5); ALKALINE PHOSPHATASE 107 U/L (40-136); BILIRUBIN,TOTAL 0.2 MG/DL (0.1-1.0); BUN/CREATININE RATIO 13; CALCIUM 9.2 MG/DL (8.5-10.1); CARBON DIOXIDE 26 MMOL/L (21-32); CHLORIDE 101 MMOL/L (98-107); CREATININE SERUM 0.71 MG/DL (0.60-1.30); GFR ESTIMATED > 60; GLUCOSE 130 MG/DL (70-105); POTASSIUM 4.3 MMOL/L (3.6-5.0); SODIUM 140 MMOL/L (135-145); TOTAL PROTEIN 7.3 GM/DL (6.4-8.2)
[2019-02-06] MEDS ORDERED: IOHEXOL 350 MG/ML 150 ML (OMNIPAQUE 350) VIAL IV ONE (16:30)
[2019-02-06] MEDS ORDERED: HOLD METFORMIN - RECEIVED CONTRAST 20 ML VIAL IV SCH (16:30)
[2019-02-06] MEDS ORDERED: CATHETER FLUSH 10 ML SYR IV PRN (16:30)
[2019-02-06] MEDS ORDERED: NS 100 ML (IVPB) BAG IV ONE (16:30)
--- NOTE | 2019-02-06 17:14 | Diagnostic Imaging Report ---
PROCEDURE: CT angiography Chest TECHNIQUE: After intravenous administration of contrast, thin section axial CT angiography of the chest was performed. 3D MIP reconstructions were made. All CT scans use one or more of the following dose optimizing techniques: automated exposure control, MA and/or KvP adjustment based on a patient size and exam type, or iterative reconstruction. INDICATION: Chest pain and shortness of breath. History of DVT COMPARISON: CTA chest of 06/21/2015 FINDINGS: Vasculature: No pulmonary emboli. No CT evidence of pulmonary hypertension or right ventricular strain. Thoracic aorta is normal in caliber. No aortic dissection or pseudoaneurysm. Heart and mediastinum: Visualized thyroid is normal. No supraclavicular, axillary, or intra-thoracic lymphadenopathy. The heart is normal in size without pericardial effusion. Pleura: No pleural effusion or pneumothorax. Lungs and airway: No endoluminal lesion in the trachea or central bronchi. No pulmonary mass, nodule or consolidation. There are a few scattered foci of atelectasis within the bilateral lower lobes. Upper abdomen: Diffuse hypoattenuation liver is most indicative of hepatic steatosis. No acute abnormality upper abdomen. Musculoskeletal: No concerning osseous lesion. IMPRESSION: 1. No acute cardiopulmonary process. Specifically, no pulmonary emboli or acute aortic syndrome. Dictated by: Dictated on workstation # [id number]
[2019-02-06 19:14] VITALS: BP 132/86
[2019-02-07 18:57] LABS: CREATINE KINASE MB 1.1 NG/ML (<6.6)
== END 2019-02-06 19:18 | disposition home or self-care (01) ==
LOC: EDUNIT# 14:54 → ER FS 14:55
DX: R07.89 Other chest pain (principal); J44.9 Chronic obstructive pulmonary disease, unspecified; G47.30 Sleep apnea, unspecified; I25.10 Atherosclerotic heart disease of native coronary artery without angina pectoris; E78.00 Pure hypercholesterolemia, unspecified; I10 Essential (primary) hypertension; I73.9 Peripheral vascular disease, unspecified; G62.9 Polyneuropathy, unspecified; K21.9 Gastro-esophageal reflux disease without esophagitis; E66.01 Morbid (severe) obesity due to excess calories; E03.9 Hypothyroidism, unspecified; Z85.038 Personal history of other malignant neoplasm of large intestine; Z87.19 Personal history of other diseases of the digestive system; Z86.711 Personal history of pulmonary embolism; Z95.5 Presence of coronary angioplasty implant and graft; Z88.0 Allergy status to penicillin; Z88.8 Allergy status to other drugs, medicaments and biological substances; Z88.6 Allergy status to analgesic agent; Z91.030 Bee allergy status; Z79.82 Long term (current) use of aspirin; Z79.02 Long term (current) use of antithrombotics/antiplatelets; Z79.01 Long term (current) use of anticoagulants; Z90.49 Acquired absence of other specified parts of digestive tract; Z90.710 Acquired absence of both cervix and uterus; Z82.49 Family history of ischemic heart disease and other diseases of the circulatory system; Z80.0 Family history of malignant neoplasm of digestive organs; Z68.43 Body mass index [BMI] 50.0-59.9, adult
CPT/HCPCS: 36415; 71045; 71275; 80053; 82553; 83880; 84484; 85025; 85379; 85610; 85730; 93005; 93041

== ENCOUNTER 2019-05-30 16:51 | Emergency (ER) | payer MEDICARE, MEDICAID ==
[~2019-05-30] VITALS: Ht 157 cm; Wt 135.0 kg
[~2019-05-30 16:51] MED LIST changes: -INDO50CA11 PO; +INDO50CA82 PO; +OMEP-280 PO; -OMEP20CA13 PO; +SIMV10TA26 PO; -SIMV10TA3 PO; +SIMV20TA26 PO; -SIMV20TA3 PO
--- NOTE | 2019-05-30 17:15 | ED Chest Pain ---
General Chief Complaint: Cardiac/General Problems Stated Complaint: LOW BLOOD PRESSURE Nursing Triage Note: States her blood pressure has been low for several days and she has been dizzy since . States her blood pressure at home prior to coming here was 98/58 and she normally runs 117-130's systolic. Was started on diltiazem several weeks ago. Nursing Sepsis Screen: No Definite Risk Source: patient, family Exam Limitations: clinical condition, other History of Present Illness Date Seen by Provider: May 30, 2019 Time Seen by Provider: 17:05 Initial Comments 23-year-old female presents with for evaluation of lethargy and dizziness for the past 3 days. Patient states her blood pressure home in registering 98/58 she normally is between 117 to 1:30 systolic. Patient started taking diltiazem several weeks ago and states that she has been feeling very weak since using the diltiazem. Patient reports that she has significant cardiovascular disease including coronary arterial sclerosis and stents. She denies diabetes patient is morbidly obese. She reports a precordial chest discomfort and pressure sensation which is exacerbated with any exertion although she is severely deconditioned. Patient has given informed consent for diagnostic and therapeutic services. 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: No NTG SL MAINFRAME SOFTWARE DEVELOPER: No Associated Symptoms: abdominal pain, back pain, dizziness, shortness of breath, weakness Allergies and Home Medications Allergies Coded Allergies: methylprednisolone (Verified Allergy, Mild, 11/05/18) Penicillins (Unverified Allergy, Unknown, 11/05/18) atorvastatin (Verified Allergy, Unknown, 11/05/18) isosorbide (Verified Allergy, Unknown, 11/05/18) ketorolac (Verified Allergy, Unknown, ITCHING, 11/05/18) promethazine (Unverified Allergy, Unknown, hallucinations, 11/05/18) venom-honey bee (Unverified Allergy, Unknown, 11/05/18) Uncoded Allergies: TAPE (Allergy, Unknown, 08/16/13) Home Medications Acetaminophen 500 Mg Tablet, 500 MG PO BID PRN for PAIN-MILD, (Reported) Albuterol Sulfate 18 Gm Hfa.aer.ad, 1 PUFF INH Q4H PRN for SHORTNESS OF BREATH, (Reported) Albuterol Sulfate 2.5 Mg/3 Ml Vial.neb, 2.5 MG NEB Q4H PRN for SHORTNESS OF BREATH, (Reported) Aspirin 81 Mg Tablet.dr, 81 MG PO DAILY Prescribed by: REAGAN MCNEILL on 08/20/17 0800 Cefuroxime Axetil 250 Mg Tablet, 250 MG PO BID Prescribed by: SHALOM RAMÍREZ on 11/13/18 2140 Clopidogrel Bisulfate 75 Mg Tablet, 75 MG PO DAILY Prescribed by: REAGAN MCNEILL on 08/20/17 0800 Hydrocodone Bit/Acetaminophen 1 Ea Tablet, 1 EACH PO Q6H PRN for CHEST PAIN Prescribed by: ALEJANDRA MARTIN on 10/05/18 1849 Hydrocodone/Acetaminophen 1 Each Tablet, 1 TAB PO Q6H, (Reported) Levothyroxine Sodium 150 Mcg Tablet, 150 MCG PO HS, (Reported) Nitrofurantoin Monohyd/M-Cryst 100 Mg Capsule, 100 MG PO BID Prescribed by: NORIS DOHERTY on 11/05/182008 Nitroglycerin 0.4 Mg Tab.subl, 0.4 MG SL PRN 1 TAB SUBLINGUAL Q5MIN. RETURN TO THE ER IF YOUR CHEST PAIN CONTINUES OR IS UNRESPLVED. Prescribed by: SHALOM RAMÍREZ on 08/20/17 1350 Omeprazole 20 Mg Capsule.dr, 20 MG PO DAILY, (Reported) LAST FILLED #30 04-15-17 Ondansetron 8 Mg Tab.rapdis, 8 MG PO Q6H Prescribed by: NORIS DOHERTY on 11/05/182008 Warfarin Sodium 5 Mg Tablet, 5 MG PO DAILY, (Reported) Patient Home Medication List Home Medication List Reviewed: Yes Review of Systems Review of Systems Constitutional: dizziness, malaise, weakness, other (shortness of breath) EENTM: Nose Congestion Respiratory: Shortness of Air, SOA With Exertion Cardiovascular: Chest Pain, Lightheadedness, Syncope Gastrointestinal: Nausea Genitourinary: No Symptoms Reported Musculoskeletal: back pain, joint pain, muscle pain, muscle stiffness, muscle weakness Skin: no symptoms reported Psychiatric/Neurological: Anxiety Endocrine: No Symptoms Reported Hematologic/Lymphatic: No Symptoms Reported Past Aiknrcf-Mlqvem-Ummdub Hx Patient Social History Alcohol Use: Denies Use Recreational Drug Use: No Smoking Status: Never a Smoker Type Used: Cigarettes 2nd Hand Smoke Exposure: Yes Recent Foreign Travel: No Contact w/Someone Who Travel: No Recent Infectious Disease Expo: No Recent Hopitalizations: No Physical Abuse: No Sexual Abuse: No Mistreated: No Fear: No Immunizations Up To Date Tetanus Booster (TDap): Less than 5yrs PED Vaccines UTD: Yes Date of Pneumonia Vaccine: Aug 17, 2012 Date of Influenza Vaccine: May 06, 2012 Seasonal Allergies Seasonal Allergies: No Past Medical History Surgeries: Yes Appendectomy, Cardiac, Coronary Stent, Gallbladder, Hysterectomy, Orthopedic, Thyroidectomy Respiratory: Yes (HAS CPAP--DOES NOT USE ON REGULAR BASIS; P.E. X2) Asthma, Pulmonary Embolism, Sleep Apnea Currently Using CPAP: No Currently Using BIPAP: No Cardiac: Yes (P.E. 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 Sexually Transmitted Disease: No HIV/AIDS: No Genitourinary: Yes Bladder Infection, Kidney Stones Gastrointestinal: Yes (S/P GENI) Gastroesophageal Reflux, Chronic Constipation, Gall Bladder Disease Musculoskeletal: Yes Degenerate Disk Disease, Arthritis, Back Injury, Chronic Back Pain, Spasms Endocrine: Yes (MORBID OBESITY; THYROIDECTOMY) Hypothyroidsim HEENT: Yes Loss of Vision: Bilateral Hearing Impairment: Denies Cancer: No Colon Psychosocial: No Integumentary: No Blood Disorders: Yes (BLOOD CLOTS-DVT/P.E.'S) Adverse Reaction/Blood Tranf: No Family Medical History Arthritis G8 SISTER Cardiovascular disease 03 FATHER Colon cancer 03 MOTHER Completed stroke 03 MOTHER Hypertension 03 MOTHER G8 BROTHER Myocardial infarction 03 MOTHER Thyroid disease G8 SISTER Physical Exam Vital Signs Vital Signs - First Documented 05/30/19 17:02 Temp 36.3 Pulse 59 Resp 16 B/P (MAP) 132/77 (95) Pulse Ox 98 Capillary Refill : Less Than 3 Seconds Height, Weight, BMI Height: 5'2.00" Weight: 297lbs. 8.0oz. 134.564910dw; 54.00 BMI Method:Stated General Appearance: Chronically ill, Moderate Distress, Obese HEENT: PERRL/EOMI, Normal ENT Inspection, Pharynx Normal Neck: Limited Range of Motion (and very to obesity) Respiratory: Chest Non Tender, Lungs Clear, Normal Breath Sounds, No Accessory Muscle Use, No Respiratory Distress Cardiovascular: Regular Rate, Rhythm, No Edema, No Gallop, No JVD, No Murmur, Normal Peripheral Pulses Gastrointestinal: Normal Bowel Sounds, No Organomegaly, No Pulsatile Mass, Non Tender, Soft (but morbidly obese) Extremity: Normal Capillary Refill, Normal Inspection, Normal Range of Motion, Non Tender, No Calf Tenderness Neurologic/Psychiatric: Alert, Oriented x3, No Motor/Sensory Deficits, Normal 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/Affect, 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 Norm as Tested Skin: Normal Color, Warm/Dry Lymphatic: No Adenopathy Progress/Results/Core Measures Results/Orders Lab Results Laboratory Tests Test 05/30/19 17:26 Range/Units White Blood Count 8.8 4.3-11.0 10^3/uL Red Blood Count 4.73 4.35-5.85 10^6/uL Hemoglobin 13.8 11.5-16.0 G/DL Hematocrit 44 35-52 % Mean Corpuscular Volume 94 80-99 FL Mean Corpuscular Hemoglobin 29 25-34 PG Mean Corpuscular Hemoglobin Concent 31 L 32-36 G/DL Red Cell Distribution Width 14.4 10.0-14.5 % Platelet Count 213 130-400 10^3/uL Mean Platelet Volume 10.4 7.4-10.4 FL Neutrophils (%) (Auto) 75 42-75 % Lymphocytes (%) (Auto) 15 12-44 % Monocytes (%) (Auto) 8 0-12 % Eosinophils (%) (Auto) 1 0-10 % Basophils (%) (Auto) 0 0-10 % Neutrophils # (Auto) 6.6 1.8-7.8 X 10^3 Lymphocytes # (Auto) 1.3 1.0-4.0 X 10^3 Monocytes # (Auto) 0.7 0.0-1.0 X 10^3 Eosinophils # (Auto) 0.1 0.0-0.3 10^3/uL Basophils # (Auto) 0.0 0.0-0.1 10^3/uL Prothrombin Time 19.8 H 12.2-14.7 SEC INR Comment 1.6 H 0.8-1.4 Activated Partial Thromboplast Time 31 24-35 SEC Sodium Level 138 135-145 MMOL/L Potassium Level 4.3 3.6-5.0 MMOL/L Chloride Level 100 98-107 MMOL/L Carbon Dioxide Level 24 21-32 MMOL/L Anion Gap 14 5-14 MMOL/L Blood Urea Nitrogen 11 7-18 MG/DL Creatinine 0.77 0.60-1.30 MG/DL Estimat Glomerular Filtration Rate > 60 BUN/Creatinine Ratio 14 Glucose Level 124 H 70-105 MG/DL Calcium Level 9.0 8.5-10.1 MG/DL Corrected Calcium 8.9 8.5-10.1 MG/DL Magnesium Level 2.4 1.6-2.4 MG/DL Total Bilirubin 0.2 0.1-1.0 MG/DL Aspartate Amino Transf (AST/SGOT) 18 5-34 U/L Alanine Aminotransferase (ALT/SGPT) 19 0-55 U/L Alkaline Phosphatase 109 40-136 U/L Myoglobin 78.7 10.0-92.0 NG/ML Troponin I < 0.30 <0.30 NG/ML Total Protein 7.8 6.4-8.2 GM/DL Albumin 4.1 3.2-4.5 GM/DL Lipase 53 8-78 U/L Micro Results Microbiology 05/30/19 Influenza Types A,B Antigen (JOSÉ ANTONIO) - Final, Complete My Orders Orders - KUMAR OCHOA DO Cbc With Automated Diff (05/30/19 17:07) Magnesium (05/30/19 17:07) Chest 1 View Ap/Pa Only (05/30/19 17:07) Ekg Tracing (05/30/19 17:07) Comprehensive Metabolic Panel (05/30/19 17:07) Myoglobin Serum (05/30/19 17:07) Protime With Inr (05/30/19 17:07) Partial Thromboplastin Time (05/30/19 17:07) Monitor-Rhythm Ecg Trace Only (05/30/19 17:07) Lipid Panel (05/31/19 06:00) Ed Iv/Invasive Line Start (05/30/19 17:07) Lipase (05/30/19 17:07) Troponin I Fs (05/30/19 17:07) Influenza A And B Antigens (05/30/19 17:26) Vital Signs/I&O 05/30/19 17:02 Temp 36.3 Pulse 59 Resp 16 B/P (MAP) 132/77 (95) Pulse Ox 98 Blood Pressure Mean: 95 Progress Progress Note : Time: 18:50 Progress Note Patient's laboratory evaluation was essentially negative with negative influenza A and B. Patient's CBC chem profile is acceptable with slight increase in her glucose. Chest x-ray reveals FINDINGS: Portable chest shows the lungs to be well aerated without air-trapping. There are no infiltrates. There is mild cardiomegaly. No pulmonary edema. No pneumothorax or pleural effusion. No bony abnormalities. IMPRESSION: Mild cardiomegaly with no acute changes. Departure Impression Primary Impression: Upper respiratory infection Additional Impressions: Chest wall pain Hyperglycemia Disposition: 01 HOME, SELF-CARE Condition: Stable Departure-Patient Inst. Decision time for Depature: 18:52 Referrals: NO,LOCAL PHYSICIAN (PCP) Primary Care Physician NEVA HU APRN (Family) Primary Care Physician Patient Instructions: Chest Pain (DC), Acid Reflux (Gastroesophageal Reflux D isease), Adult (DC), Hyperglycemia, Adult (DC), Costochondritis, Chest Pain That Is Not Caused by the Heart (DC) Add. Discharge Instructions: All discharge instructions reviewed with patient and/or family. Voiced understanding. KUMAR OCHOA DO May 30, 2019 17:15
--- NOTE | 2019-05-30 17:21 | Diagnostic Imaging Report ---
INDICATION: Dizziness with hypotension. COMPARISON: 02/06/2019. FINDINGS: Portable chest shows the lungs to be well aerated without air-trapping. There are no infiltrates. There is mild cardiomegaly. No pulmonary edema. No pneumothorax or pleural effusion. No bony abnormalities. IMPRESSION: Mild cardiomegaly with no acute changes. Dictated by: Dictated on workstation # [id number]
[2019-05-30 17:39] LABS: BASOPHILS % (AUTO) 0 % (0-10); EOSINOPHILS # (AUTO) 0.1 10^3/uL (0.0-0.3); EOSINOPHILS % (AUTO) 1 % (0-10); HEMATOCRIT 44 % (35-52); HEMOGLOBIN 13.8 G/DL (11.5-16.0); LYMPHOCYTES # (AUTO) 1.3 X 10^3 (1.0-4.0); LYMPHOCYTES % (AUTO) 15 % (12-44); MEAN CORPUSCULAR HEMOGLOBIN 29 PG (25-34); MEAN CORPUSCULAR HGB CONC 31 G/DL (32-36); MEAN CORPUSCULAR VOLUME 94 FL (80-99); MEAN PLATELET VOLUME 10.4 FL (7.4-10.4); MONOCYTES # (AUTO) 0.7 X 10^3 (0.0-1.0); MONOCYTES % (AUTO) 8 % (0-12); NEUTROPHILS # (AUTO) 6.6 X 10^3 (1.8-7.8); NEUTROPHILS % (AUTO) 75 % (42-75); PLATELET COUNT 213 10^3/uL (130-400); RED CELL DISTRIBUTION WIDTH 14.4 % (10.0-14.5); WHITE BLOOD COUNT 8.8 10^3/uL (4.3-11.0)
[2019-05-30 17:48] LABS: INR 1.6 (0.8-1.4); PROTHROMBIN TIME PATIENT 19.8 SEC (12.2-14.7)
[2019-05-30 18:09] LABS: ALANINE AMINOTRANSFERASE 19 U/L (0-55); ALKALINE PHOSPHATASE 109 U/L (40-136); BILIRUBIN,TOTAL 0.2 MG/DL (0.1-1.0); BUN/CREATININE RATIO 14; CARBON DIOXIDE 24 MMOL/L (21-32); CHLORIDE 100 MMOL/L (98-107); CREATININE SERUM 0.77 MG/DL (0.60-1.30); GFR ESTIMATED > 60; GLUCOSE 124 MG/DL (70-105); MAGNESIUM 2.4 MG/DL (1.6-2.4); POTASSIUM 4.3 MMOL/L (3.6-5.0); SODIUM 138 MMOL/L (135-145); TOTAL PROTEIN 7.8 GM/DL (6.4-8.2)
[2019-05-30 18:10] LABS: ALBUMIN 4.1 GM/DL (3.2-4.5); LIPASE 53 U/L (8-78)
[2019-05-30 19:21] VITALS: BP 149/84
== END 2019-05-30 19:21 | disposition home or self-care (01) ==
LOC: EDUNIT# 16:51 → ER FS 16:52
DX: J06.9 Acute upper respiratory infection, unspecified (principal); R07.89 Other chest pain; R73.9 Hyperglycemia, unspecified; J45.909 Unspecified asthma, uncomplicated; I10 Essential (primary) hypertension; E78.00 Pure hypercholesterolemia, unspecified; I25.10 Atherosclerotic heart disease of native coronary artery without angina pectoris; E66.01 Morbid (severe) obesity due to excess calories; G43.909 Migraine, unspecified, not intractable, without status migrainosus; E03.9 Hypothyroidism, unspecified; G62.9 Polyneuropathy, unspecified; K21.9 Gastro-esophageal reflux disease without esophagitis; Z87.442 Personal history of urinary calculi; Z85.038 Personal history of other malignant neoplasm of large intestine; Z86.718 Personal history of other venous thrombosis and embolism; Z86.711 Personal history of pulmonary embolism; Z88.8 Allergy status to other drugs, medicaments and biological substances; Z88.6 Allergy status to analgesic agent; Z88.0 Allergy status to penicillin; Z79.82 Long term (current) use of aspirin; Z79.02 Long term (current) use of antithrombotics/antiplatelets; Z79.01 Long term (current) use of anticoagulants; Z77.22 Contact with and (suspected) exposure to environmental tobacco smoke (acute) (chronic); Z90.49 Acquired absence of other specified parts of digestive tract; Z95.5 Presence of coronary angioplasty implant and graft; Z90.710 Acquired absence of both cervix and uterus; Z82.49 Family history of ischemic heart disease and other diseases of the circulatory system; Z80.0 Family history of malignant neoplasm of digestive organs
CPT/HCPCS: 36415; 71045; 80053; 83690; 83735; 83874; 84484; 85025; 85610; 85730; 87804; 93005; 93041

== ENCOUNTER 2019-09-22 14:12 | Emergency (ER) | payer MEDICARE, MEDICAID ==
[~2019-09-22] VITALS: Ht 157.4 cm; Wt 139.3 kg
[~2019-09-22 14:12] MED LIST changes: -HYDR-3812 PO; -OMEP-280 PO; +OMEP20CA18 PO
--- NOTE | 2019-09-22 14:20 | NUR ---
Pt arrival per POV with boyfriend and assisted to ER registration in her WC. See triage notes. Pt states she has some bilateral facial numbness for 1 hr. Pt can stand to be weighed without assist. No neuro deficits noted with speech, movement and her baseline mobility. Pt uses a W/C related to obesity and underlying resp issues. Pt can walk small distances. notified of patient's arrival.
--- NOTE | 2019-09-22 14:27 | ED General ---
General Stated Complaint: FACIAL/LT ARM NUMBNESS Source of Information: Patient, Old Records, RN/MD, RN Notes Reviewed Exam Limitations: No Limitations History of Present Illness Date Seen by Provider: September 22, 2019 Time Seen by Provider: 14:20 Initial Comments This patient is a 63-year-old female presents to the emergency department with complaint of numbness around her lips. Patient states this been present for about 2 days. Patient states she's had this happen before. Patient does have sleep apnea and wears a mask at night when she sleeps. All other evaluation is completely normal. Patient has a normal neurological exam normal cranial nerve exam. All sensation appears to be intact. We'll do medical evaluation treatment is needed Timing/Duration: 2-3 Days Modifying Factors: worse with Cold Therapy, worse with Eating, worse with Immobilization, worse with Medication, worse with Movement, worse with Rest, worse with Other Associated Systoms: No Denies Symptoms, No Chest Pain, No Cough, No Diaphoresis, No Fever/Chills, No Headaches, No Loss of Appetite, No Malaise, No Nausea/Vomiting, No Rash, No Seizure, No Shortness of Air, No Syncope, No Weakness, No Other Allergies and Home Medications Allergies Coded Allergies: methylprednisolone (Verified Allergy, Mild, 11/05/18) Penicillins (Unverified Allergy, Unknown, 11/05/18) atorvastatin (Verified Allergy, Unknown, 11/05/18) isosorbide (Verified Allergy, Unknown, 11/05/18) ketorolac (Verified Allergy, Unknown, ITCHING, 11/05/18) promethazine (Unverified Allergy, Unknown, hallucinations, 11/05/18) venom-honey bee (Unverified Allergy, Unknown, 11/05/18) Uncoded Allergies: TAPE (Allergy, Unknown, 08/16/13) Home Medications Acetaminophen 500 Mg Tablet, 500 MG PO BID PRN for PAIN-MILD, (Reported) Albuterol Sulfate 18 Gm Hfa.aer.ad, 1 PUFF INH Q4H PRN for SHORTNESS OF BREATH, (Reported) Albuterol Sulfate 2.5 Mg/3 Ml Vial.neb, 2.5 MG NEB Q4H PRN for SHORTNESS OF BREATH, (Reported) Aspirin 81 Mg Tablet.dr, 81 MG PO DAILY Prescribed by: REAGAN MCNEILL on 08/20/17 0800 Cefuroxime Axetil 250 Mg Tablet, 250 MG PO BID Prescribed by: SHALOM RAMÍREZ on 11/13/18 2140 Clopidogrel Bisulfate 75 Mg Tablet, 75 MG PO DAILY Prescribed by: REAGAN MCNEILL on 08/20/17 0800 Hydrocodone Bit/Acetaminophen 1 Each Tablet, 1 TAB PO Q6H, (Reported) Hydrocodone Bit/Acetaminophen 1 Ea Tablet, 1 EACH PO Q6H PRN for CHEST PAIN Prescribed by: ALEJANDRA MARTIN on 10/05/18 1849 Levothyroxine Sodium 150 Mcg Tablet, 150 MCG PO HS, (Reported) Nitrofurantoin Monohyd/M-Cryst 100 Mg Capsule, 100 MG PO BID Prescribed by: NORIS DOHERTY on 11/05/182008 Nitroglycerin 0.4 Mg Tab.subl, 0.4 MG SL PRN 1 TAB SUBLINGUAL Q5MIN. RETURN TO THE ER IF YOUR CHEST PAIN CONTINUES OR IS UNRESPLVED. Prescribed by: SHALOM RAMÍREZ on 08/20/17 1350 Omeprazole 20 Mg Capsule.dr, 20 MG PO DAILY, (Reported) LAST FILLED #30 04-15-17 Ondansetron 8 Mg Tab.rapdis, 8 MG PO Q6H Prescribed by: NORIS DOHERTY on 11/05/182008 Warfarin Sodium 5 Mg Tablet, 5 MG PO DAILY, (Reported) Patient Home Medication List Home Medication List Reviewed: Yes Review of Systems Review of Systems Constitutional: see HPI EENTM: No see HPI, No no symptoms reported, No ear discharge, No hearing loss, No ear pain, No blurred vision, No double vision, No eye pain, No tearing, No vision loss, No dental problems, No hoarseness, No mouth pain, No mouth swelling, No epistaxis, No nose congestion, No nose pain, No throat pain, No throat swelling, No other Respiratory: No no symptoms reported, No see HPI, No cough, No dyspnea on exertion, No hemoptysis, No orthopnea, No phlegm, No short of breath, No stridor, No wheezing, No other Cardiovascular: No no symptoms reported, No see HPI, No chest pain, No edema, No Hx of Intervention, No palpitations, No syncope, No vascular heart diseas, No other Gastrointestinal: No RUQ, No LUQ, No RLQ, No LLQ, No no symptoms reported, No see HPI, No abdominal pain, No constipation, No diarrhea, No dysphagia, No hematemesis, No heartburn, No jaundice, No loss of appetite, No melena, No ita sea, No vomiting, No other Genitourinary: No no symptoms reported, No see HPI, No decreased output, No dis charge, No dysuria, No frequency, No hematuria, No hesitancy, No incontinence, No nocturia, No pain, No other Musculoskeletal: No no symptoms reported, No see HPI, No back pain, No gout, No joint pain, No joint swelling, No muscle pain, No muscle stiffness, No muscle cramps, No muscle twitching, No muscle weakness, No neck pain, No other Skin: No no symptoms reported, No see HPI, No change in color, No change in hair/nails, No dryness, No hx of skin cancer, No lesions, No lumps, No pruritus, No rash, No other All Other Systems Reviewed Negative Unless Noted: Yes Past Kkjcjxj-Znnatv-Mpezls Hx Patient Social History Type Used: Cigarettes 2nd Hand Smoke Exposure: Yes Recent Foreign Travel: No Contact w/Someone Who Travel: No Recent Hopitalizations: No Immunizations Up To Date Tetanus Booster (TDap): Less than 5yrs PED Vaccines UTD: Yes Date of Pneumonia Vaccine: Aug 17, 2012 Date of Influenza Vaccine: May 06, 2012 Seasonal Allergies Seasonal Allergies: No Past Medical History Surgeries: Yes Appendectomy, Cardiac, Coronary Stent, Gallbladder, Hysterectomy, Orthopedic, Thyroidectomy Respiratory: Yes (HAS CPAP--DOES NOT USE ON REGULAR BASIS; P.E. X2) Asthma, Pulmonary Embolism, Sleep Apnea Currently Using CPAP: No Currently Using BIPAP: No Cardiac: Yes (P.E. X 2; CARDIAC CATHS WITH STENTS X 2--LAST ONE 08/2017;) Coronary Artery Disease, Deep Vein Thrombosis, High Cholesterol, Hypertension, Peripheral Vascular, Syncope Neurological: Yes (NEUROPATHY ARMS & FEET; ) Headaches /Migraines, Neuropathy Reproductive Disorders: Yes (FIBROIDS, CHRONIC PELVIC PAIN ) MLT History: Hysterectomy Sexually Transmitted Disease: No HIV/AIDS: No Genitourinary: Yes Bladder Infection, Kidney Stones Gastrointestinal: Yes (S/P GENI) Gastroesophageal Reflux, Chronic Constipation, Gall Bladder Disease Musculoskeletal: Yes Degenerate Disk Disease, Arthritis, Back Injury, Chronic Back Pain, Spasms Endocrine: Yes (MORBID OBESITY; THYROIDECTOMY) Hypothyroidsim HEENT: Yes Loss of Vision: Bilateral Hearing Impairment: Denies Cancer: No Colon Psychosocial: No Integumentary: No Blood Disorders: Yes (BLOOD CLOTS-DVT/P.E.'S) Adverse Reaction/Blood Tranf: No Family Medical History Arthritis G8 SISTER Cardiovascular disease 03 FATHER Colon cancer 03 MOTHER Completed stroke 03 MOTHER Hypertension 03 MOTHER G8 BROTHER Myocardial infarction 03 MOTHER Thyroid disease G8 SISTER Physical Exam Vital Signs Vital Signs - First Documented 09/22/19 14:20 Temp 36.5 Pulse 81 Resp 22 B/P (MAP) 140/109 (119) Pulse Ox 95 O2 Delivery Room Air Capillary Refill : Height, Weight, BMI Height: 5'2.00" Weight: 297lbs. 8.0oz. 134.641365hs; 54.00 BMI Method:Stated General Appearance: No Apparent Distress, WD/WN HEENT: PERRL/EOMI, TMs Normal, Normal ENT Inspection, Pharynx Normal Neck: Full Range of Motion, Normal Inspection, Non Tender, Supple Respiratory: Chest Non Tender, Lungs Clear, Normal Breath Sounds, No Accessory Muscle Use, No Respiratory Distress Cardiovascular: Regular Rate, Rhythm, No Edema, No Gallop, No JVD, No Murmur, Normal Peripheral Pulses Gastrointestinal: Normal Bowel Sounds, No Organomegaly, No Pulsatile Mass, Non Tender, Soft Back: Normal Inspection, No CVA Tenderness, No Vertebral Tenderness Extremity: Normal Capillary Refill, Normal Inspection, Normal Range of Motion, Non Tender, No Calf Tenderness, No Pedal Edema Neurologic/Psychiatric: Alert, Oriented x3, No Motor/Sensory Deficits, Normal Mood/Affect, personal consultant II-XII Norm as Tested Skin: Normal Color, Warm/Dry Progress/Results/Core Measures Suspected Sepsis SIRS Temperature: Pulse: Respiratory Rate: Laboratory Tests 09/22/19 14:30: White Blood Count 8.9 Blood Pressure / Mean: Laboratory Tests 09/22/19 14:30: Creatinine 0.87, INR Comment 2.3H, Platelet Count 207, Total Bilirubin 0.3 Results/Orders Lab Results Laboratory Tests Test 09/22/19 14:30 09/22/19 14:33 09/22/19 15:15 Range/Units White Blood Count 8.9 4.3-11.0 10^3/uL Red Blood Count 4.42 4.35-5.85 10^6/uL Hemoglobin 13.1 11.5-16.0 G/DL Hematocrit 40 35-52 % Mean Corpuscular Volume 91 80-99 FL Mean Corpuscular Hemoglobin 30 25-34 PG Mean Corpuscular Hemoglobin Concent 32 32-36 G/DL Red Cell Distribution Width 15.2 H 10.0-14.5 % Platelet Count 207 130-400 10^3/uL Mean Platelet Volume 10.4 7.4-10.4 FL Neutrophils (%) (Auto) 67 42-75 % Lymphocytes (%) (Auto) 24 12-44 % Monocytes (%) (Auto) 7 0-12 % Eosinophils (%) (Auto) 2 0-10 % Basophils (%) (Auto) 0 0-10 % Neutrophils # (Auto) 5.9 1.8-7.8 X 10^3 Lymphocytes # (Auto) 2.2 1.0-4.0 X 10^3 Monocytes # (Auto) 0.6 0.0-1.0 X 10^3 Eosinophils # (Auto) 0.1 0.0-0.3 10^3/uL Basophils # (Auto) 0.0 0.0-0.1 10^3/uL Prothrombin Time 26.2 H 12.2-14.7 SEC INR Comment 2.3 H 0.8-1.4 Sodium Level 140 135-145 MMOL/L Potassium Level 4.2 3.6-5.0 MMOL/L Chloride Level 100 98-107 MMOL/L Carbon Dioxide Level 27 21-32 MMOL/L Anion Gap 13 5-14 MMOL/L Blood Urea Nitrogen 13 7-18 MG/DL Creatinine 0.87 0.60-1.30 MG/DL Estimat Glomerular Filtration Rate > 60 BUN/Creatinine Ratio 15 Glucose Level 172 H 70-105 MG/DL Calcium Level 8.9 8.5-10.1 MG/DL Corrected Calcium 9.1 8.5-10.1 MG/DL Total Bilirubin 0.3 0.1-1.0 MG/DL Aspartate Amino Transf (AST/SGOT) 22 5-34 U/L Alanine Aminotransferase (ALT/SGPT) 20 0-55 U/L Alkaline Phosphatase 102 40-136 U/L Total Protein 7.2 6.4-8.2 GM/DL Albumin 3.8 3.2-4.5 GM/DL Glucometer 152 H 70-110 MG/DL Urine Color YELLOW Urine Clarity CLEAR Urine pH 6.0 5-9 Urine Specific [place] 1.025 H 1.016-1.022 Urine Protein NEGATIVE NEGATIVE Urine Glucose (UA) NEGATIVE NEGATIVE Urine Ketones NEGATIVE NEGATIVE Urine Nitrite NEGATIVE NEGATIVE Urine Bilirubin NEGATIVE NEGATIVE Urine Urobilinogen 0.2 < = 1.0 MG/DL Urine Leukocyte Esterase NEGATIVE NEGATIVE Urine RBC (Auto) 1+ H NEGATIVE Urine RBC 2-5 H /HPF Urine WBC NONE /HPF Urine Squamous Epithelial Cells 2-5 /HPF Urine Crystals NONE /LPF Urine Bacteria FEW H /HPF Urine Casts NONE /LPF Urine Mucus NEGATIVE /LPF Urine Culture Indicated NO My Orders Orders - GERMAN MAHMOOD MD Ct Head Wo (09/22/19 14:22) Cbc With Automated Diff (09/22/19 14:22) Comprehensive Metabolic Panel (09/22/19 14:22) Drug Screen Stat (Urine) (09/22/19 14:22) Protime With Inr (09/22/19 14:22) Urinalysis (09/22/19 14:22) Ed Iv/Invasive Line Start (09/22/19 14:22) Chest 1 View Ap/Pa Only (09/22/19 14:22) Ekg Tracing (09/22/19 14:22) Vital Signs/I&O 09/22/19 14:20 Temp 36.5 Pulse 81 Resp 22 B/P (MAP) 140/109 (119) Pulse Ox 95 O2 Delivery Room Air Capillary Refill : Progress Note : Time: 15:46 Progress Note Negative evaluation in the emergency department. Negative exam. All sensation and strength appears to be normal bilaterally. Nonspecific complaining of numbness around the mouth. No abnormality seen on any extremely extremity exam no drift good strength good gait. I did discuss living with patient about options. Patient is agreeable follow-up with primary care physician in 2-3 days if not improved. Patient is discharged home ECG Initial ECG Impression Date: September 22, 2019 Initial ECG Impression Time: 14:22 Initial ECG Rate: 69 Initial ECG Rhythm: Normal Sinus Initial ECG Impression: Normal Comment No acute findings. Nonspecific EKG changes. Otherwise normal exam. Departure Impression Primary Impression: Numbness and tingling Disposition: 01 HOME, SELF-CARE Condition: Stable Departure-Patient Inst. Decision time for Depature: 15:48 Referrals: NO,LOCAL PHYSICIAN (PCP) Primary Care Physician NEVA HU APRN (Family) Primary Care Physician Patient Instructions: Transient Ischemic Attack (DC) Add. Discharge Instructions: If had a negative exam in the emergency department today. Follow-up through [facility] physician in 2-3 days the symptoms persist. Continue all home medications. GERMAN MAHMOOD MD September 22, 2019 14:26
[2019-09-22 14:30] VITALS: BP 126/94
--- NOTE | 2019-09-22 14:35 | NUR ---
To CT after portable CXR
[2019-09-22 14:45] VITALS: BP 114/46
--- NOTE | 2019-09-22 14:45 | NUR ---
Returning from CT.
--- NOTE | 2019-09-22 14:50 | NUR ---
Dr reports this patient is not a candidate for thrombolytics with baseline NIH persisting at score "0". Pt has shown response to the sensation of touch on her bilateral cheeks. Pt now stating, "I need to get an INR done that was due today for my Dr."
[2019-09-22 14:59] LABS: WHITE BLOOD COUNT 8.9 10^3/uL (4.3-11.0)
[2019-09-22 15:00] VITALS: BP 143/119
[2019-09-22 15:00] LABS: BASOPHILS % (AUTO) 0 % (0-10); EOSINOPHILS # (AUTO) 0.1 10^3/uL (0.0-0.3); EOSINOPHILS % (AUTO) 2 % (0-10); HEMATOCRIT 40 % (35-52); HEMOGLOBIN 13.1 G/DL (11.5-16.0); LYMPHOCYTES # (AUTO) 2.2 X 10^3 (1.0-4.0); LYMPHOCYTES % (AUTO) 24 % (12-44); MEAN CORPUSCULAR HEMOGLOBIN 30 PG (25-34); MEAN CORPUSCULAR HGB CONC 32 G/DL (32-36); MEAN CORPUSCULAR VOLUME 91 FL (80-99); MEAN PLATELET VOLUME 10.4 FL (7.4-10.4); MONOCYTES # (AUTO) 0.6 X 10^3 (0.0-1.0); MONOCYTES % (AUTO) 7 % (0-12); NEUTROPHILS # (AUTO) 5.9 X 10^3 (1.8-7.8); NEUTROPHILS % (AUTO) 67 % (42-75); PLATELET COUNT 207 10^3/uL (130-400); RED CELL DISTRIBUTION WIDTH 15.2 % (10.0-14.5)
--- NOTE | 2019-09-22 15:00 | Diagnostic Imaging Report ---
PROCEDURE: CT head without contrast. TECHNIQUE: Multiple contiguous axial images were obtained through the brain without the use of intravenous contrast. Auto Exposure Controls were utilized during the CT exam to meet ALARA standards for radiation dose reduction. INDICATION: Left arm numbness. Syncopal episode two days ago. COMPARISON: CT head on 08/11/2018, 12/28/2016. FINDINGS: No large acute territorial ischemia, mass, or hemorrhage. No midline shift or mass effect. The ventricles, cortical sulci, and basilar cisterns are patent and unremarkable. The calvarium is intact. The visualized paranasal sinuses are clear. IMPRESSION: 1. No large acute territorial ischemia, mass, or hemorrhage. Dictated by: Dictated on workstation # [id number]
--- NOTE | 2019-09-22 15:01 | Diagnostic Imaging Report ---
INDICATION: Left arm numbness since today, passed out 2 days ago. TECHNIQUE: Single view chest 2:53 PM. CORRELATION STUDY: 05/30/2019 FINDINGS: There is limited depth of inspiration on this portable examination. Given this, heart size is enlarged, perhaps slightly more prominent from prior study. Vasculature however is within normal limits. The lung chacon remain clear with some crowding at the lung bases with hypoventilation. Cervical and thoracic spinal fixation hardware is present. IMPRESSION: 1. Cardiac enlargement without evidence of overt failure. Dictated by: Dictated on workstation # [id number]
[2019-09-22 15:14] LABS: INR 2.3 (0.8-1.4); PROTHROMBIN TIME PATIENT 26.2 SEC (12.2-14.7)
[2019-09-22 15:17] LABS: SODIUM 140 MMOL/L (135-145)
[2019-09-22 15:18] LABS: ALANINE AMINOTRANSFERASE 20 U/L (0-55); ALKALINE PHOSPHATASE 102 U/L (40-136); BILIRUBIN,TOTAL 0.3 MG/DL (0.1-1.0); BUN/CREATININE RATIO 15; CALCIUM 8.9 MG/DL (8.5-10.1); CARBON DIOXIDE 27 MMOL/L (21-32); CHLORIDE 100 MMOL/L (98-107); CREATININE SERUM 0.87 MG/DL (0.60-1.30); GFR ESTIMATED > 60; GLUCOSE 172 MG/DL (70-105); POTASSIUM 4.2 MMOL/L (3.6-5.0); TOTAL PROTEIN 7.2 GM/DL (6.4-8.2)
[2019-09-22 15:19] LABS: ALBUMIN 3.8 GM/DL (3.2-4.5)
--- NOTE | 2019-09-22 15:20 | NUR ---
Dysphagia screen completed and pt has passed. This was instigated by patient reporting she was thirsty and wanted a drink.
[2019-09-22 15:26] LABS: CLARITY,URINE CLEAR; COLOR,URINE YELLOW
[2019-09-22 15:27] LABS: BACTERIA,URINE FEW /HPF; BILIRUBIN,URINE NEGATIVE (NEGATIVE); GLUCOSE, URINE (UA) NEGATIVE (NEGATIVE); KETONES,URINE NEGATIVE (NEGATIVE); LEUKOCYTE ESTERASE ,URINE NEGATIVE (NEGATIVE); NITRITE,URINE NEGATIVE (NEGATIVE); PROTEIN,URINE NEGATIVE (NEGATIVE)
[2019-09-22 15:30] VITALS: BP 106/70
[2019-09-22 15:55] VITALS: BP 126/58
--- NOTE | 2019-09-22 15:55 | NUR ---
Pt discharged home from ER with no neurological deficits noted. Pt consuming water after dysphagia testing was passed. Pt wanted rail down to sit up on edge of bed after approx 45 min in ER as more comfortable. Pt reports neuropathy in extremities. Pt has been smiling and conversing on her phone with boyfriend and also texting. No neurological deficits noted.
[2019-09-22 15:59] LABS: AMPHETAMINE SCREEN, URINE NEGATIVE (NEGATIVE); BARBITURATE SCREEN URINE NEGATIVE (NEGATIVE); BENZODIAZEPINES SCREEN URINE NEGATIVE (NEGATIVE); CANNABINOID SCREEN, URINE NEGATIVE (NEGATIVE); COCAINE SCREEN URINE NEGATIVE (NEGATIVE); METHADONE STAT NEGATIVE (NEGATIVE); METHAMPHETAMINE SCREEN URINE S NEGATIVE (NEGATIVE); OPIATE SCREEN URINE NEGATIVE (NEGATIVE); OXYCODONE STAT NEGATIVE (NEGATIVE); PROPOXYPHENE STAT NEGATIVE (NEGATIVE); TRICYCLIC ANTIDEPRESSANTS SCRE NEGATIVE (NEGATIVE)
== END 2019-09-22 15:55 | disposition home or self-care (01) ==
LOC: EDUNIT# 14:12 → ER FS 14:14
DX: R20.0 Anesthesia of skin (principal); I10 Essential (primary) hypertension; I25.10 Atherosclerotic heart disease of native coronary artery without angina pectoris; J45.909 Unspecified asthma, uncomplicated; K21.9 Gastro-esophageal reflux disease without esophagitis; E03.9 Hypothyroidism, unspecified; E66.09 Other obesity due to excess calories; G62.9 Polyneuropathy, unspecified; Z85.038 Personal history of other malignant neoplasm of large intestine; Z86.711 Personal history of pulmonary embolism; Z86.718 Personal history of other venous thrombosis and embolism; Z88.0 Allergy status to penicillin; Z88.8 Allergy status to other drugs, medicaments and biological substances; Z88.6 Allergy status to analgesic agent; Z79.82 Long term (current) use of aspirin; Z79.02 Long term (current) use of antithrombotics/antiplatelets; Z79.01 Long term (current) use of anticoagulants; Z95.5 Presence of coronary angioplasty implant and graft; Z82.49 Family history of ischemic heart disease and other diseases of the circulatory system; Z80.0 Family history of malignant neoplasm of digestive organs
CPT/HCPCS: 36415; 70450; 71045; 80053; 80306; 81000; 82962; 85025; 85610; 93005

== ENCOUNTER 2019-11-03 19:06 | Emergency (ER) | payer MEDICARE, MEDICAID ==
[~2019-11-03] VITALS: Ht 157.5 cm; Wt 135.0 kg
--- OUTSIDE RECORDS SUMMARY | 2019-11-03 19:14 | XMS REPORT | Encounter Summary ---
Author Author [facility] Organization [facility] Address Unknown Phone Unavailable Care Team Providers Care Attendant [employer] Name Role Phone GibsonVaughn delgado PCP Encounter Details Care Team Description Date Type Department Geni Harris NP [address] [place] [address] 03/02/2017 Documentation [facility] [address] [place], [place] [id number] Social History Date Tobacco Use Types Packs/Day Years Used Never Smoker Smokeless Tobacco: Never Used Drinks/Week oz/Week Comments Alcohol Use No Sex Assigned at Date Recorded Not on file Industry Job Start Date Occupation Not on file Not on file Not on file Travel End Travel History Travel Start No recent travel history available. documented as of this encounter Progress Notes * Geni Harris NP - 03/02/2017 11:52 AM CDT We received records from [facility] in [place], [place]. On review of h er chart she did have a CT of her head done in December 2016. This imaging was no rmal. On 01/20/2017 she had CTA of her head and neck which were both unremarkabl e. She also had a carotid Doppler which too was unremarkable. She has had lab work including CBC and CMP that were unremarkable. On further chart review I di d find multiple CTs of the head done in the past and 2012 and 2015. In 2012 she also had cervical spine imaging that revealed a C5-C7 fusion and otherwise norm al. Given that she has had recent CT and CTA of the head and neck I have not recomme nded any further testing at this time. This imaging was all done following the o nset of this new daily headache. Geni Kjelshus PERSONAL [employer] documented in this encounter Plan of Treatment Not on filedocumented as of this encounter Visit Diagnoses Not on filedocumented in this encounter
--- OUTSIDE RECORDS SUMMARY | 2019-11-03 19:14 | XMS REPORT | Clinical Summary ---
Author Author [facility] Organization [facility] Address Unknown Phone Unavailable Care Team Providers Care Padding Gluer Name Role Phone Gibson, Vaughn PCP Allergies Comments Active Allergy Reactions Severity Noted Date Adhesive Tape-Silicones Rash Low 2013 Dexamethasone Nausea And 02/12/2017 Vomiting, Dizziness Esomeprazole Magnesium Anaphylaxis High 014 Levothyroxine Rash Low 03/23/2014 Penicillin G Hives 03/23/2014 Promethazine Hives 02/12/2017 Medications End Date Status Medication Sig Dispensed Refills Start Date Active simvastatin (ZOCOR) 10 MG Take 10 mg by 0 tablet mouth nightly. Active naproxen (NAPROSYN) 500 Take 500 mg 0 MG tablet by mouth as needed. Active levothyroxine (SYNTHROID, Take 150 mcg 0 LEVOTHROID) 150 MCG by mouth tablet daily. Active warfarin (COUMADIN) 7.5 Take 7.5 mg 0 MG tablet by mouth every Thursday, , and Thursday. Active warfarin (COUMADIN) 5 MG Take 5 mg by 0 tablet mouth every Thursday, Thursday and Thursday. Active omeprazole (PRILOSEC) 20 Take 20 mg by 0 MG capsule mouth daily. Active HYDROcodone-acetaminophen Take 1 tablet 0 (NORCO) 5-325 mg per by mouth tablet every 6 (six) hours as needed for pain. Active acetaminophen (TYLENOL) Take 650 mg 0 325 MG tablet by mouth as needed for pain. Active carboxymethylcellulose 1 drop 3 0 (REFRESH PLUS) ophthalmic (three) times solution a day as needed. Active topiramate (TOPAMAX) 50 Take 2 120 tablet 11 /201 MG tabletIndications: tablets (100 7 Intractable migraine mg total) by without aura and with mouth 2 (two) status migrainosus, times a day. Migraine without aura and without status migrainosus, not intractable Active divalproex (ROSSY DONG) Take 2 120 tablet 11 1 250 MG delayed-release tablets (500 7 tabletIndications: mg total) by Chronic migraine without mouth 2 (two) aura without status times a day. migrainosus, not intractable Active Problems Problem Noted Date Chronic migraine without aura without status migraino felipa, not intractable 02/12/2017 Endometrial hyperplasia without atypia, complex 03/12 Family History Medical History Relation Name Comments Colon cancer Mother Stroke Mother Hyperlipidemia Sister Hypertension Sister Migraines Sister Relation Name Status Comments Mother Sister Social History Date Tobacco Use Types [...] Signs Reading Time Taken Comments Vital Sign 143/74 03/13/2017 2:57 PM CDT Blood Pressure 60 03/13/2017 2:57 PM CDT Pulse - - Temperature - - Respiratory Rate - - Oxygen Saturation - - Inhaled Oxygen Concentration 100.1 kg (220 lb 9.6 oz) 03/13/2017 2:57 PM CDT Weight 157.5 cm (5' 2") 03/13/2017 2:57 PM CDT Height 40.35 03/13/2017 2:57 PM CDT Body Mass Index Plan of Treatment Health Maintenance Due Date Last Done Comments Hepatitis C Screen 1955 Medicare Annual Wellness 1955 Td # 1955 Colorectal Screening via 12/10/2007 Colonoscopy Mammogram Screening 12/10/2007 Zoster Vaccine# (1 of 2) 12/10/2007 Influenza Vaccine (Season 03/11/2020 Ended) Pneumococcal Vaccine: Aged Out No longer eligib le based on patient's age to Pediatrics (0 to 5 Years) complete this topic and At-Risk Patients (6 to 64 Years) Results Not on filefrom Last 3 Months Insurance Type Payer Benefit Subscriber ID Effective Phone Address Plan / Dates Group Medicare MEDICARE MEDICARE xxxxxxxxxx 2008-P [place] [facility] [place] [id number] 1 Anca Jordan Personal/F Self 1955 [address] [place] [address] (Home) [place] [id number] 1 Anca Jordan Abhay Personal/F Self 1955 [address] [place] [address] (Home) [place] [id number] Advance Directives For more information, please contact: [phone] 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
--- OUTSIDE RECORDS SUMMARY | 2019-11-03 19:14 | XMS REPORT | Encounter Summary ---
Author Author [facility] Organization [facility] Address Unknown Phone Unavailable Care Team Providers Care Box Stacker Name Role Phone GibsonVaughn PCP Reason for Visit * Reason Comments Headache follow up Encounter Details Care Team Description Date Type Department Geni Harris NP [address] [address] [phone] Chronic migraine without aura without st atus migrainosus, not intractable (Primary Dx) 03/13/2017 Office Visit [facility] [place] [address] [facility] [address] [place] [address] Social History Date Tobacco Use Types Packs/Day Years Used Never Smoker Smokeless Tobacco: Never Used Drinks/Week oz/Week Comments Alcohol Use No Sex Assigned at Date Recorded Not on file Industry Job Start Date Occupation Not on file Not on file Not on file Travel End Travel History Travel Start No recent travel history available. documented as of this encounter Last Filed Vital Signs Reading Time Taken [...] 03/13/2017 2:57 PM CDT Body Mass Index documented in this encounter Progress Notes * Geni Harris NP - 03/13/2017 3:15 PM CDT [facility] Neurology Clinic Date: 03/13/17 Patient Name: Anca Jordan Date of : 1955 Chief Complaint: Encounter Diagnosis Name Primary? Chronic migraine without aura without status migrainosus, not intractable Ye s Anca was seen today in follow-up regarding her history of chronic daily migrain e headache without aura. At the time of initial consult she reported a history of recurring headache for the last 25 years. These mild headaches that occur 3-4 times a year and severe headache 2-3 times a year. Normally she would treat headaches with Tylenol or E xcedrin resulting in . For the past 2 year she has also been getting ep isodes of unilateral facial weakness with blurred vision and at times expressive aphasia with headache. These were typically last 4-6 hours in duration and occ ur 3-4 times a year. At that visit she was complaining of daily headache that began 8 weeks prior. T his daily headache would become severe 3-4 days a week. We did receive her celia rds since that visit and she did in fact have a thorough workup regarding this d aily headache. There was radiology report for CT and CTA of the head and neck w hich were unremarkable. She also had a carotid Doppler which was normal. She h ad a CBC and CMP which were unremarkable. She has had CTs of the head in 2012 a 2015 as well. Since her last visit she did have MR imaging of her cervical s pine and reports that this was normal. For headache prevention we initiated a trial of topiramate. She was able to adv ance the dose up to 100 mg twice daily. She does not feel there has been any no table change in headache. On review of her headache calendar for February she perkins d 20 days that were moderate in intensity. Then she had 3 severe headaches and 7 additional severe and disabling episodes. No mild headaches. Recently she perkins s been experiencing increased back pain but does deal with chronic issues with t his. She wondered if the topiramate could be increasing her back pain. Otherwi se no side effects reported. There have not been any other reported changes made to her medical regimen since her last visit. As mentioned she does have chronic low back pain. She takes N orco for chronic pain but states she has not used any in the past month. She re ports that she does not like the side effects. On review of her medical records from [facility], there were multiple concerns of the pa blaire complaining of chronic pain and requesting narcotics. She remains on Coum mike for the previous pulmonary embolism. No other complaints at this time. Review of Systems Constitutional: Positive for malaise/fatigue. Eyes: Negative. Respiratory: Negative. Cardiovascular: Negative. Gastrointestinal: Negative. Genitourinary: Negative. Musculoskeletal: Positive for back pain. Skin: Negative. Neurological: Positive for headaches. Endo/Heme/Allergies: Negative. Psychiatric/Behavioral: Negative. Examination: Vitals: 03/13/17 1457 BP: 143/74 Pulse: 60 On examination she was alert and oriented to person, place and time. Pupils wer e equal, round and reacted directly and consensually to light. Cranial nerve ex amination was normal. Motor exam revealed normal strength 5/5 in all extremitie s. Sensory exam was normal to light touch. Gait and coordination normal. Ther e was no evidence of limb ataxia. Rapid alternating movements were symmetric. Assessment & Plan: SNOMED CT(R) 1. Chronic migraine without aura without status migrainosus, not intractable ND GRAINE WITHOUT AURA, NOT REFRACTORY divalproex (ROSSY DONG) 250 MG delayed-rele ase tablet Today we have agreed to continue her topiramate 100 mg twice daily. She is tole rating this medication and on review of her calendar she has had more mild heada ches and severe. We discussed that it would be very unusual that the medication will be leading to increased back pain. For now she will plan to continue but at any point she has the option to reduce the dose if she feels this is necessar y. For headache prevention we are going to initiate a trial of divalproex as we ll. I provided her with written instructions to gradually advance the dose to a maximum of 500 mg twice daily. We reviewed the use, benefits and potential side effects of this medication. She will continue keeping her headache calendar in order to assess her response. I have asked her to return in 6 weeks to report on her response. Allergies Allergen Reactions Esomeprazole Magnesium Anaphylaxis Dexamethasone Nausea And Vomiting and Dizziness Penicillin G Hives Phenergan [Promethazine] Hives Adhesive Tape-Silicones Rash Levothyroxine Rash Past Medical History: Diagnosis Date Asthma Chronic back pain Sleep apnea Family History Problem Relation Age of Onset Colon cancer Mother Stroke Mother Migraines Sister Hyperlipidemia Sister Hypertension Sister Social History Social History Marital status: Unknown Spouse name: N/A Number of children: N/A Years of education: N/A Social History Main Topics Smoking status: Never Smoker Smokeless tobacco: Never Used Alcohol use No Drug use: No Sexual activity: Not Asked Other Topics Concern None Social History Narrative None Geni Blanco APRN [address] [address] (phone) (fax) documented in this encounter Plan of Treatment Not on filedocumented as of this encounter Visit Diagnoses Diagnosis Chronic migraine without aura without s tatus migrainosus, not intractable documented in this encounter
--- OUTSIDE RECORDS SUMMARY | 2019-11-03 19:15 | XMS REPORT | Encounter Summary ---
Author Author [facility] Organization [facility] Address Unknown Phone Unavailable Care Team Providers Care Public Relations Supervisor Name Role Phone Vaughn Gibson PCP Encounter Details Care Team Description Date Type Department Iiams, NILESH Vasquez Intractable migraine without aura and wi th status migrainosus; Migraine without aura and without status migrainosus, not intractable 02/13/2017 Orders Only [facility] Neurol ogy [address] [place] [id number] Social History Date Tobacco Use Types Packs/Day Years Used Never Smoker Smokeless Tobacco: Never Used Drinks/Week oz/Week Comments Alcohol Use No Sex Assigned at Date Recorded Not on file Industry Job Start Date Occupation Not on file Not on file Not on file Travel End Travel History Travel Start No recent travel history available. documented as of this encounter Plan of Treatment Not on filedocumented as of this encounter Visit Diagnoses Diagnosis Intractable migraine without aura and w ith status migrainosus Migraine without aura and without statu s migrainosus, not intractable documented in this encounter
--- OUTSIDE RECORDS SUMMARY | 2019-11-03 19:15 | XMS REPORT | Encounter Summary ---
Author Author [facility] Organization [facility] Address Unknown Phone Unavailable Care Team Providers Care Glass Cutter Hand Name Role Phone Vaughn Gibson PCP Reason for Visit * Reason Comments Topamax PA Encounter Details Care Team Description Date Type Department Geni Harris NP [address] [place], [place] [id number] Topamax PA 02/12/2017 Telephone [facility] ogy [address] [place] [address] Social History Date Tobacco Use Types Packs/Day Years Used Never Smoker Smokeless Tobacco: Never Used Drinks/Week oz/Week Comments Alcohol Use No Sex Assigned at Date Recorded Not on file Industry Job Start Date Occupation Not on file Not on file Not on file Travel End Travel History Travel Start No recent travel history available. documented as of this encounter Miscellaneous Notes * Telephone Encounter - Christina Tang MA - 02/12/2017 2:45 PM CDT Called insurance ([phone]) to initiate PA for Topamax. . They will be faxing over a PA form to complete. If however [facility]'s notes are righ t and patient needs to take 100 mg bid rather than 150 mg bid then a new RX need s to be sent and no PA is needed. documented in this encounter Plan of Treatment Not on filedocumented as of this encounter Visit Diagnoses Not on filedocumented in this encounter
--- OUTSIDE RECORDS SUMMARY | 2019-11-03 19:15 | XMS REPORT | Clinical Summary ---
Author Author [facility] Organization [facility] Address Unknown Phone Unavailable Care Team Providers Care Museum Exhibit Technician Name Role Phone Zena Ferrera RN Unavailable Unavailable Raman Haskins MD Unavailable Jovanna Heath Unavailable Unavailable Tiny Courtney NP PCP Source Comments Some departments are not documenting in the electronic medical record. If you d o not see the information that you expected, contact Release of Information in [facility] voxapp Information Management department at [phone] for further assistan ce in locating additional records.[facility] Allergies Comments Active Allergy Reactions Severity [...] Noted Date Endometrial hyperplasia without atypia, complex 03/12 Family [...] Signs Reading Time Taken Comments Vital Sign 104/53 01/22/2019 5:30 AM CDT Blood Pressure 76 03/23/2014 2:06 PM CODING CLERK Pulse 37 C (98.6 F) 01/21/2019 7:25 PM CDT Temperature - - Respiratory Rate 96% 01/22/2019 5:30 AM CDT Oxygen Saturation - - Inhaled Oxygen Concentration 147.1 kg (324 lb 3.2 oz) 03/23/2014 2:06 PM CODING CLERK Weight - - Height - - Body Mass Index Plan of Treatment Health Maintenance Due Date Last Done Comments MEDICARE ANNUAL WELLNESS 1955 VISIT HIV SCREENING 1972 DTAP/TDAP VACCINES (1 - 12/10/1975 Tdap) HEPATITIS C SCREENING 12/10/1975 PHYSICAL (COMPREHENSIVE) 12/10/1975 EXAM CERVICAL CANCER SCREENING 1978 BREAST CANCER SCREENING 1997 COLORECTAL CANCER 12/10/2007 SCREENING SHINGLES RECOMBINANT 12/10/2007 VACCINE (1 of 2) INFLUENZA VACCINE 02/09/2020 Results Not on filefrom Last 3 Months Insurance Type Payer Benefit Subscriber ID Effective Phone Address Plan / Dates Group Medicare MEDICARE MEDICARE xxxxxxxxxxx 2008-P PART [place] AND resent B [place] 2013- [place], [place] [phone] Advance Directives 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
--- OUTSIDE RECORDS SUMMARY | 2019-11-03 19:15 | XMS REPORT | Encounter Summary ---
Author Author [facility] Organization [facility] Address Unknown Phone Unavailable Care Team Providers Care Revenue Inspector Name Role Phone Vaughn Gibson PCP Encounter Details Care Team Description Date Type Department Geni Harris NP [address] [place] [address] 02/25/2017 Telephone [facility] [address] [place] [address] Social History Date Tobacco Use Types Packs/Day [...] Telephone Encounter - Christina Tang MA - 02/25/2017 10:45 AM CDT Relayed response to patient, she verbalized understanding. * Telephone Encounter - Christina Tang MA - 02/25/2017 9:13 AM CDT Patient called to report that when taking Topamax 100 mg bid she had dizziness a nd felt as if she was going to pass out. She also stated she is bruising and fee ls weak. She has not taken the medication in a couple of days and did noticed a little improvement in her migraines. Please advise if the patient should come in for a sooner appointment to discuss next steps. Call patient at [phone] documented in this encounter Plan of Treatment Not on filedocumented as of this encounter Visit Diagnoses Not on filedocumented in this encounter
--- OUTSIDE RECORDS SUMMARY | 2019-11-03 19:15 | XMS REPORT | Encounter Summary ---
Author Author [facility] Organization [facility] Address Unknown Phone Unavailable Care Team Providers Care Bullard Operator Name Role Phone Vaughn Gibson PCP Reason for Referral * Consultation (Routine) Referred By Contact Referred To Contact Status Reason Specialty Diagnoses / Procedures Vaughn Gibson APRN [address] [place] [address] [facility] [address] [facility] [address] [place] [address] Closed Specialty Services Neurology Diagnoses Required Intractable migraine without aura and with status migrainosus Encounter Details Care Team Description Date Type Department Vaughn Gibson APRN [address] [place], [place] [id number] Intractable migraine without aura and wi th status migrainosus (Primary Dx) 02/03/2017 Transcribe [facility] Neurol ogy Orders [address] [id number] Social History Date Tobacco Use Types Packs/Day Years Used Never Assessed Sex Assigned at Date Recorded Not on file Industry Job Start Date Occupation Not on file Not on file Not on file Travel End Travel History Travel Start No recent travel history available. documented as of this encounter Plan of Treatment Not on filedocumented as of this encounter Visit Diagnoses Diagnosis Intractable migraine without aura and w ith status migrainosus documented in this encounter
--- OUTSIDE RECORDS SUMMARY | 2019-11-03 19:15 | XMS REPORT | Encounter Summary ---
Author Author [facility] Organization [facility] Address Unknown Phone Unavailable Care Team Providers Care Apartment Community Manager Name Role Phone Vaughn Gibson PCP Reason for Visit * Reason Comments Headache Establish Care * Consultation (Routine) Referred By Contact Referred To Contact Status Reason Specialty Diagnoses / Procedures Vaughn Gibson, CHELA [address] [place] [address] [facility] [address] [place] [address] Closed Specialty Services Neurology Diagnoses Required Intractable migraine without aura and with status migrainosus Encounter Details Care Team Description Date Type Department Vaughn Gibson, BRICKLAYER HELPER [address] [place] [address] [phone] Geni Harris NP [address] [place] [address] [phone] Intractable migraine without aura and wi th status migrainosus; Migraine without aura and without status migrainosus, not intractable 02/12/2017 Initial consult [facility] Neurol ogy [address] [facility] [address] [place] [address] Social History Date Tobacco Use Types Packs/Day [...] Signs Reading Time Taken Comments Vital Sign 117/55 02/12/2017 12:22 PM CDT Blood Pressure 77 02/12/2017 12:22 PM CDT Pulse - - Temperature - - Respiratory Rate - - Oxygen Saturation - - Inhaled Oxygen Concentration 99.8 kg (220 lb) 02/12/2017 12:22 PM CDT Weight 157.5 cm (5' 2") 02/12/2017 12:22 PM CDT Height 40.24 02/12/2017 12:22 PM CDT Body Mass Index documented in this encounter Progress Notes * Cecilio Mireles MD - 02/12/2017 12:30 PM CDT I have reviewed the notes, assessments, and/or procedures performed by Geni muller, I concur with her/his documentation of Anca Jordan. Cecilio Mireles * Geni Harris NP - 02/12/2017 12:30 PM CDT [facility] Neurology Clinic Date: 02/12/17 Patient Name: Anca Jordan Date of : 1955 Chief Complaint: Encounter Diagnoses Name Primary? Intractable migraine without aura and with status migrainosus Migraine without aura and without status migrainosus, not intractable Anca Jordan is a 61-year-old right-handed female seen today in neurologic consult ation regarding complaints of daily headache. Headaches have been a recurring issue for at least 25 years. Headaches have alw ays been an intermittent and fairly infrequent issue. For the last several year s she has averaged mild headache 3-4 times a year and severe headache 2-3 times a year. For the mild headache she will take Tylenol resulting in and m ore intense headaches resolve with Excedrin. For the past 2 years she has been getting episodes of unilateral facial weakness right or left, blurred vision and expressive aphasia with headache. These episodes will last 4-6 hours in durati on and occur 3-4 times a year. 8 weeks ago she began to have headaches on a daily basis that will become severe 3-4 days a week. This headache had a sudden onset after a single "pop" sensation at the base of the skull. This headache is constant without any periods of co mplete relief. Headaches are described as a constant generalized ache. Severe h eadaches will consist of sharp intense pain located in the right mandaen, left pa rietal or left occiput. The severe episodes will last 24-48 hours on average. Associated symptoms with more intense headache include nausea, photophobia, fati imani, irritability, dizziness and blurred vision. The only trigger she has been able to identify for worsening headache is increased stress. She has tried Tyle nol, Excedrin, tramadol and norco which have no effect on headache. For evaluation of this headache she went to the emergency room in [facility]. There she states she had CT imaging of the head and CTA of the head. Both tests were reportedly normal but not available for review. She also had a carot id Doppler which she states was normal. After being treated with intravenous th erapy she did see improvement in the headache for about 4 hours. On another occ asion she went to the emergency room in [place] and improved with therapy there b ut only temporarily as well. She did see an commercial art instructor and had a dilated e ye exam which was reportedly normal. She complains of chronic issues with delayed sleep onset and poor sleep maintena nce. She does have sleep apnea and compliant with CPAP. No history of anxiety or depression. There is a familial history of migraine with her sister. She do es complain of issues with chronic low back pain and she will take the [place] as neededfor treatment. She is on Coumadin due to 2 separate pulmonary embolisms in the past. She reports a history of asthma. She does take simvastatin daily. She is also on thyroid replacement. She has been having issues with chronic dry eyes. No other complaints at this time. Review of Systems Constitutional: Positive for malaise/fatigue. Eyes: Negative. Respiratory: Negative. Cardiovascular: Negative. Gastrointestinal: Negative. Genitourinary: Negative. Musculoskeletal: Positive for back pain. Skin: Negative. Neurological: Positive for headaches. Endo/Heme/Allergies: Negative. Psychiatric/Behavioral: Negative. Examination: Vitals: 02/12/17 1222 BP: 117/55 Pulse: 77 On examination she was alert and oriented to person, place and time. Language wa s fluent, attention and concentration intact, and able to provide history withou t any difficulty. Pupils were equal, 3 mm bilaterally, round and reacted direct ly and consensually to light. Extraocular movements were full without nystagmus . Visual chacon were full on confrontation. Face is symmetrical and sensation in tact to light touch. Hearing was normal to conversation bilaterally. The uvula was in the midline and elevated briskly and tongue extends to midline. There was no weakness of the sternocleidomastoid muscles. Motor examination revealed nor mal tone and strength 5/5 in all extremities. Sensory exam normal to light touc h, decreased vibratory sensation in bilateral feet. Deep tendon reflexes were 1 /5 in upper extremities and areflexic in lower extremities. Gait wide based and slow. There was no evidence of limb ataxia. Rapid alternating movements were s ymmetric. Assessment & Plan: SNOMED CT(R) 1. Intractable migraine without aura and with status migrainosus REFRACTORY MARTA CRISTIAN WITHOUT AURA Amb Referral To Neurology topiramate (TOPAMAX) 50 MG tablet 2. Migraine without aura and without status migrainosus, not intractable MIGRAI NE WITHOUT AURA, NOT REFRACTORY topiramate (TOPAMAX) 50 MG tablet Faith provides a lifelong history of recurring headache consistent with the uzma gnosis of migraine without aura. For the last few years she has also been exper iencing migraine with complex symptomatology. I suspect that this daily intract able headache is an evolution of her migraine given characteristics. I had a frederick g discussion with her regarding migraine headaches reviewing their natural histo ry, clinical manifestations, biochemical mechanisms, triggering factors and danelle tment options. We reviewed the fact that sleep disorder is a common comorbid co ndition with migraine. Today I have requested that she have her records sent over from the imaging done . Assuming that she has in fact had a CT and CTA of the head, we would not need any further imaging. Her neurologic examination today is normal. For headache prevention we have agreed to initiate a trial of topiramate. I pro vided her with written instructions to gradually advance the dose to a maximum o f 100 mg twice daily. We reviewed the use, benefits and potential side effects of this medication. I instructed her to begin keeping a headache calendar, celia rding intensity on a 0-5 scale. Hopefully we will begin to see some improvement in this daily headache. I have not recommended any other changes at this time and have asked her to return in 4 weeks. Allergies Allergen Reactions Esomeprazole Magnesium Anaphylaxis Dexamethasone [...] Social History Narrative None Geni Blanco APRN [facility] [place] [address] [address] (phone) (fax) documented in this encounter Plan of Treatment Not on filedocumented as of this encounter Procedures Comments Procedure Name Priority Date/Time Associated Diag nosis AMB REFERRAL TO NEUROLOGY Routine 02/12/2017 Intr actable migraine 1:58 PM CDT without aura and with status migrainosus documented in this encounter Visit Diagnoses Diagnosis Intractable migraine without aura and w ith status migrainosus Migraine without aura and without statu s migrainosus, not intractable documented in this encounter
--- OUTSIDE RECORDS SUMMARY | 2019-11-03 19:15 | XMS REPORT | Encounter Summary ---
Author Author [facility] Organization [facility] Address Unknown Phone Unavailable Care Team Providers Care Kier Hand Name Role Phone Vaughn Gibson PCP Encounter Details Care Team Description Date Type Department Geni Harris NP [address] [place] [address] 02/12/2017 Telephone [facility] [address] [place] [address] Social History Date Tobacco Use [...] Encounter - Christina Tang MA - 02/12/2017 3:45 PM CDT Please advise if the patient is to be titrating Topamax to 100 mg bid or 150 mg bid. The RX was sent for 150 mg bid and the notes state 100 mg bid. documented in this encounter Plan of Treatment Not on filedocumented as of this encounter Visit Diagnoses Not on filedocumented in this encounter
--- OUTSIDE RECORDS SUMMARY | 2019-11-03 19:18 | XMS REPORT ---
Author Author Anca GONZALEZ Organization [facility] Address [address] [place] [address] Care Team Providers Care Skin Carver Name Role Phone CARTER GONZALEZ Unavailable PROBLEMS Type Condition ICD9-CM Code LOZ96-LD Code Onset Dates Condition S tatus SNOMED Code Problem Esophageal reflux K21.9 Active 24 0611427 Problem Dyslipidemia E78.5 12 Oct, 2017 Active 3709 54689 Problem Unspecified hypothyroidism E03.9 Act hernesto 81220868 Problem Generalized anxiety disorder F41.1 23 Apr, 200 8 Active 05248258 Problem Shortness of breath R06.02 23 Apr, 2008 Active 556832782 Problem Pulmonary embolus I26.99 13 Oct, 2011 Active 04473977 Problem Nonintractable migraine G43.009 08 Oct, 2015 Act hernesto 867413047 Problem Pre-diabetes R73.03 Active 2212597 02 Problem Morbid obesity with BMI of 50.0-59.9, adult Z68.43 Active 776689717 Problem Hypothyroidism E03.9 Active 44786 008 Problem Morbid obesity E66.01 Active 47792 6002 Problem Unspecified sleep apnea G47.30 Active 58443426 Problem Personal history of pulmonary embolism Z86.711 Active 051631986 Problem Osteoarthritis of right knee M17.11 13 May, 201 0 Active 956033355 Problem Renal stones N20.0 Active 2275703 7 Problem Coronary artery disease I25.10 Active 17194737 Problem Hyperlipidemia LDL goal <70 E78.5 Ac tive 69944032 Problem Migraine with aura and without status migrainosu s, not intractable G43.109 Active 0254746 ALLERGIES No Information ENCOUNTERS Encounter Location Date Diagnosis [facility] [address] [facility] [id number] [address] [place] [id number] 15 Sep, 2019 [facility] [address] [facility] [id number] [address] [place] [phone] September, [facility] [address] [id number] [address] [place] [phone] September, [facility] [address] [id number] [address] [place] [phone] Aug, [facility] [address] [id number] [address] [place] [phone] Aug, History of recurrent UTIs Z8 7.440 and Personal history of pulmonary embolism Z86.711 [facility] [address] [id number] [address] [place] [phone] Jul, History of recurrent UTIs Z8 7.440 [place] [address] [id number] [address] [place] [id number] 07 Jun, 2019 Personal history of pulmonar y embolism Z86.711 [place] [address] [id number] [address] [place] [id number] 07 Jun, 2019 Personal history of pulmonar y embolism Z86.711 [facility] [address] [id number] [address] [place] [phone] May, [facility] [address] [id number] [address] May, 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 and Dizziness R42 [facility] [address] [id number] [address] [place] [phone] Apr, Non-recurrent acute suppurat hernesto otitis media of both ears without spontaneous rupture of tympanic membranes H66.003 [place] [address] [id number] [address] [place] [phone] Feb, Pre-diabetes R73.03 and Hype rlipidemia LDL goal <70 E78.5 [facility] [address] [id number] [address] [place] [phone] Feb, [facility] [address] [id number] [address] [place] [phone] Feb, [facility] [address] [facility] [id number] [address] [place] [phone] Jan, [facility] [address] [facility] [id number] [address] [place] [phone] Jan, [facility] [address] [facility] [id number] [address] [place] [id number] 18 Jan, 2019 Encounter for Medicare [facility] wellness exam Z00.00 ; Hyperlipidemia LDL goal <70 E78.5 ; Coronary artery disease I25.10 ; Hypothyroidism E03.9 ; Osteoarthritis of right knee M17.11 ; Morbid obesity with BMI of 50.0-59.9, adult Z68.43 and Esophageal reflux K21.9 [place] [address] [facility] [id number] [address] [place] [phone] Jan, Dysuria R30.0 and Hematuria, unspecified type R31.9 [place] [address] [place] [id number] [address] [place] [phone] Jan, Hematuria, unspecified type R31.9 [place] [address] [place] [id number] [address] [place] [phone] Dec, Hematuria, unspecified type R31.9 [place] [address] [place] [id number] [address] [place] [id number] Nov, Hematuria, unspecified type R31.[id number] [place] [phone] Nov, Other microscopic hematuria R31.29 [facility] [address] [facility] [id number] [address] [place] [phone] Nov, Vaginal gena B37.3 ; Othe r microscopic hematuria R31.29 and Morbid obesity E66.01 [facility] [address] [facility] [id number] [address] [place] [id number] Nov, [facility] [address] [facility] [id number] [address] [place] [phone] Nov, [facility] [address] [facility] [id number] [address] [place] [phone] Nov, UTI symptoms R39.9 and Morbi d obesity E66.01 [facility] [address] [facility] [id number] [address] [place] [phone] Nov, [facility] [address] [facility] [id number] [address] [place] [phone] September, [facility] [address] [facility] [id number] [address] [place] [phone] September, [facility] [address] [facility] [id number] [place] [phone] Aug, Right foot pain M79.671 and Morbid obesity E66.01 [facility] [address] [facility] [id number] [address] [place] [phone] Jul, Right foot pain M79.671 and Morbid obesity E66.01 [facility] [address] [facility] [id number] [address] [place] [id number] Jul, Injury of right foot, initia l encounter S99.921A and Morbid obesity E66.01 [facility] [address] [facility] [id number] [address] [place] [phone] Jul, Recurrent syncope R55 and Mo rbid obesity E66.01 [facility] [address] [facility] [id number] [address] [place] [phone] Jul, [facility] [address] [facility] [id number] [address] [place] [phone] Jun, Hematuria, unspecified type R31.9 and BMI 50.0-59.9, adult Z68.43 [facility] [address] [facility] [id number] [address] [place] [phone] Jun, [address] 340[id number] [place] [phone] Jun, [employer] current use of ant icoagulant Z79.01 [facility] [address] [facility] [id number] [address] [place] [phone] May, Ankle pain, right M25.571 an d BMI 50.0-59.9, adult Z68.43 [facility] [address] [place] [id number] [address] [place] [phone] May, [facility] [address] [place] [id number] [place] [phone] May, [facility] [address] [place] [id number] [address] [place] [phone] Apr, [facility] [address] [place] [id number] [place] [address] Apr, [facility] [address] [place] [id number] [place] [phone] Apr, [facility] [address] [place] [id number] [place] [address] Apr, BMI 50.0-59.9, adult Z68.43 and Weakness R53.1 [facility] [address] [place] [id number] [address] [place] [phone] Apr, [facility] [address] [place] [id number] [place] [address] Apr, Dysuria R30.0 ; Hematuria R3 1.9 ; Renal lithiasis N20.0 and BMI 50.0-59.9, adult Z68.43 [facility] [address] [place] [id number] [address] [place] [phone] Apr, [facility] [address] [place] [id number] [place] [phone] Apr, [facility] [address] [place] [id number] [address] [place] [phone] Apr, Hypothyroidism E03.9 [facility] [address] [address] Apr, Burning with urination R30.0 ; Type 2 diabetes mellitus with diabetic neuropathic arthropathy, 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 ; Acute bilateral low back pain without sciatica M54.5 and BMI 50.0- 59.9, adult Z68.[address] [address] Mar, Hypothyroidism E03.[address] [address] Feb, [address] [address] 15 Jan, [address] [address] 07 Jan, 2018 Acute non-recurrent maxillar y sinusitis J01.00 and BMI 50.0-59.9, adult Z68.[address] [address] 04 Jan, 2018 Congestion of upper respirat ory tract J98.8 and BMI 50.0-59.9, adult Z68.[address] [address] Dec, Type 2 diabetes mellitus wit h diabetic neuropathic arthropathy, 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 ; Morbid obesity with BMI of 50.0-59.9, adult Z68.43 ; Hypothyroidism E03.9 ; Coronary artery disease I25.10 ; Hyperlipidemia LDL goal <70 E78.5 ; Right lower quadrant abdominal pain R10.31 and Acute cystitis with hematuria N30.[address] [address] Dec, Migraine with aura and witho ut status migrainosus, not intractable G43.109 ; Dehydration symptoms R63.8 and BMI 50.0-59.9, adult Z68.43 [place] [id number] [address] [place] [phone] Oct, [facility] [address] [address] Oct, [facility] [address] [place] [id number] [address] [place] [phone] Oct, [place] [address] [address] September, [place] [address] [address] September, Type 2 diabetes mellitus wit h diabetic neuropathic arthropathy, 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 ; Hyperlipidemia, unspecified hyperlipidemia type E78.5 ; Personal history of pulmonary embolism Z86.711 ; Coronary artery disease I25.10 and Hypothyroidism E03.9 [place] [address] [address] September, [place] [address] [place] [id number] [address] [place] [phone] Aug, Type 2 diabetes mellitus wit h diabetic neuropathic arthropathy, 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 ; Hyperlipidemia, unspecified hyperlipidemia type E78.5 ; Arthritis M19.90 ; Hypothyroidism E03.9 ; Renal stones N20.0 ; BMI 50.0-59.9, adult Z68.43 ; Personal history of pulmonary embolism Z86.711 ; Coronary artery disease I25.10 ; Gastroesophageal reflux disease without esophagitis K21.9 and Intractable migraine without aura and with status migrainosus G43.011 [facility] [id number] [place] [phone] Aug, [place] [address] [address] Aug, [facility] [id number] [place] [phone] Jul, Renal stones N20.0 [facility] [address] [address] 19 Jun, 2017 Back pain M54.9 ; Kidney sto radha N20.0 and BMI 50.0-59.9, adult Z68.43 [place] [address] [address] Jun, [place] [address] [address] Apr, [place] [address] [address] Apr, [place] [address] [address] Apr, Right foot pain M79.671 ; 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, 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 and Arthritis M19.90 [place] [address] [address] Apr, Gastroesophageal reflux dise ase without esophagitis K21.9 [place] [address] [address] Mar, Hypothyroidism, unspecified E03.9 [place] [address] [address] Feb, [place] [address] [address] 25 Jan, 2017 Cervicalgia of occipito-atla nto-axial region M54.2 and Persistent headaches R51 [place] [address] [address] Jan, [place] [address] [address] 12 Jan, 2017 Intractable migraine without aura and with status migrainosus G43.011 ; Cervical spine pain M54.2 ; Hyperlipidemia, unspecified hyperlipidemia type E78.5 ; Hypothyroidism E03.9 and Metabolic syndrome E88.81 [place] [address] [address] Jan, Hypothyroidism, unspecified E03.9 [place] [address] [address] Dec, Hypothyroidism, unspecified E03.9 [place] [address] [address] Dec, Hypothyroidism E03.9 [place] [address] [address] Nov, Laceration of left great toe w/o foreign body w/o damage to nail, initial encounter S91.112A [facility] [address] [address] Oct, Pain in left knee M25.562 an d Arthritis M19.90 [place] [address] [address] Oct, Hypothyroidism, unspecified E03.9 and Hyperlipidemia, unspecified hyperlipidemia type E78.5 [place] [address] [address] Oct, Gastroesophageal reflux dise ase without esophagitis K21.9 [place] [address] [address] 14 Oct, 2016 Metabolic syndrome E88.81 ; Personal history of pulmonary embolism Z86.711 ; Other specified hypothyroidism E03.8 and Hyperlipidemia, unspecified hyperlipidemia type E78.5 [place] [address] [address] 13 Oct, 2017 Personal history of pulmonar y embolism Z86.711 ; Dysuria R30.0 ; Metabolic syndrome E88.81 ; Other specified hypothyroidism E03.8 ; Hyperlipidemia, unspecified hyperlipidemia type E78.5 and Morbid obesity with BMI of 50.0-59.9, adult Z68.43 [place] [address] [address] September, [facility] [place] [address] [facility] [id number] [address] [place] [address] September, Wrist pain, left M25.532 and Acute pain of left knee M25.562 [place] [address] [facility] [id number] [address] [place] [address] Jul, Dysuria R30.0 [place] [address] [place] [id number] [place] [address] Jul, Dysuria R30.0 [place] [address] [place] [id number] [place] [phone] Jul, Left lower quadrant pain R10 .32 [place] [address] [place] [id number] [place] [address] Jul, [place] [address] [address] Jul, Coronary artery disease I25. 10 ; Family history of diabetes mellitus Z83.3 ; Morbid obesity with BMI of 50.0-59.9, adult Z68.43 ; Metabolic syndrome E88.81 ; Personal history of pulmonary embolism Z86.711 ; Gastroesophageal reflux disease without esophagitis K21.9 ; Hypothyroidism, unspecified E03.9 ; Hyperlipidemia, unspecified hyperlipidemia type E78.5 and Left lower quadrant pain R10.32 [facility] [place] [id number] [address] [place] [address] Jul, [facility] [place] [id number] [address] [place] [phone] Jul, Morbid obesity with BMI of 5 0.0-59.9, adult Z68.43 [facility] [place] [id number] [address] [place] [phone] Jul, Generalized abdominal pain R 10.84 [facility] [place] [id number] [address] [place] [phone] Jun, Muscle strain of right upper back, initial encounter S29.012A [facility] [address] [facility] [id number] [address] [place] [address] May, Foreign body (FB) in soft ti ssue M79.5 [place] [address] [facility] [id number] [address] [place] [phone] Mar, Hypothyroidism, unspecified E03.9 and Arthritis M19.90 [place] [address] [place] [id number] [place] [address] 13 Feb, 2016 Coronary artery disease I25. 10 ; Morbid obesity with BMI of 50.0- 59.9, adult Z68.43 ; Metabolic syndrome E88.81 ; Gastroesophageal reflux disease without esophagitis K21.9 ; Hypothyroidism, unspecified E03.9 ; Personal history of pulmonary embolism Z86.711 and Hyperlipidemia, unspecified hyperlipidemia type E78.5 [place] [address] [address] Feb, [facility] [address] [place] [id number] [place] [address] Jan, Acute right-sided thoracic b ack pain M54.6 [place] [address] [place] [id number] [place] [address] Jan, Acute pain of left knee M25. 562 [place] [address] [place] [id number] [place] [address] Dec, Dysuria R30.0 ; Metabolic sy ndrome E88.81 ; Acute pain of left knee M25.562 ; Acute cystitis with hematuria N30.01 and Acute left eye pain H57.12 [place] [address] [place] [id number] [place] [address] Dec, [place] [address] [place] [id number] [place] [address] Dec, [place] [address] [address] Dec, Hypothyroidism, unspecified E03.9 [facility] [address] [id number] [address] [place] [phone] Dec, [place] [address] [id number] [address] [place] [address] Nov, Peripheral edema R60.9 and A cute pain of left knee M25.562 [facility] [place] [address] [facility] [id number] [address] [place] [address] September, [place] [address] [id number] [address] [place] [phone] September, Metabolic syndrome E88.81 an d Allergy, subsequent encounter T78.40XD [facility] [place] [address] [facility] [id number] [address] [place] [phone] September, Muscle strain T14.8 [place] [address] [facility] [id number] [address] [place] [address] Aug, Chest pressure R07.89 ; Yreka bolic syndrome E88.81 ; Morbid obesity with BMI of 50.0-59.9, adult Z68.43 ; Esophageal reflux 530.81 and Shortness of breath R06.02 [place] [address] [facility] [id number] [address] [place] [address] Aug, [place] [address] [id number] [address] [place] [phone] Aug, [place] [address] [facility] [id number] [address] [place] [address] Aug, Hypothyroidism, unspecified E03.9 [place] [address] [facility] [id number] [address] [place] [phone] Aug, Routine health maintenance Z 00.00 [facility] [place] [address] [facility] [id number] [address] [place] [phone] Aug, [place] [address] [facility] [id number] [address] [place] [id number] 31 Mar, 2016 Routine health maintenance Z 00.00 ; Family history of diabetes mellitus Z83.3 ; Family history of cancer Z80.9 and Morbid obesity with BMI of 50.0-59.9, adult Z68.43 [facility] [address] [place] [id number] [address] [place] [address] 28 Jul, 2015 Allergic rhinitis J30.9 and Postnasal drip R09.82 [place] [address] [address] 18 Jul, 2015 Influenza J11.1 [facility] [address] [address] 08 Jul, 2015 Dysuria R30.0 [place] [address] [address] Apr, [place] [address] [address] Mar, Acute upper respiratory infe ction, unspecified J06.9 and Hypothyroidism E03.9 [place] [address] [address] Mar, [place] [address] [address] Feb, Coronary artery disease I25. 10 [place] [address] [address] Feb, Left foot pain M79.672 [place] [address] [place] [id number] [address] [place] [phone] Jan, UTI (urinary tract infection ) 599.0 [place] [address] [address] Jan, Urinary tract infection, sit e not specified 599.0 [place] [address] [place] [id number] [address] [place] [address] Jan, Urinary tract infection, sit e not specified 599.0 [place] [address] [id number] [address] [place] [id number] Jan, [facility] [address] [id number] [address] [place] [address] Dec, Headache 784.0 [facility] [address] [id number] [address] [place] [phone] Dec, Urinary tract infection, sit e not specified 599.0 [facility] [address] [id number] [address] [place] [address] Dec, Urinary tract infection, sit e not specified 599.0 [facility] [address] [id number] [address] [place] [address] Dec, Urinary tract infection, sit e not specified 599.0 [facility] [address] [facility] [id number] [address] [place] [phone] Nov, Unspecified sleep apnea 780. 57 ; Encounter for long-term (current) use of anticoagulants V58.61 ; Routine general medical examination at health care facility V70.0 and Arthritis of both knees 716.96 [facility] [address] [facility] [id number] [address] [place] [phone] September, Cat bite of hand 882.0 and R ectal bleeding 569.3 [facility] [address] [facility] [id number] [address] [place] [id number] Aug, [facility] [address] [id number] [address] [place] [phone] Aug, [facility] [address] [facility] [id number] [address] [place] [id number] Jul, [facility] [address] [facility] [id number] [address] [place] [phone] Jul, [facility] [address] [facility] [id number] [address] [place] [id number] Jul, [facility] [address] [facility] [id number] [address] [place] [phone] Jul, [facility] [address] [id number] [address] [place] [address], [place] [id number] Jul, [facility] [address] [id number] [address] [place] [address], [place] [id number] Jul, [facility] [address] [id number] [address] [place] [address], [place] [phone] Jul, [facility] [address] [id number] [address] [place] [address], [place] [id number] Jul, [facility] [address] [id number] [address] [place] [address], [place] [id number] May, [facility] [address] [id number] [address] [place] [address], [place] [id number] May, [facility] [address] [id number] [address] [place] [phone] May, [facility] [address] [address] [id number] [address] [place] [address], [place] [address] May, [facility] [address] [id number] [address] [place] [address], [place] [address] May, [facility] [address] [id number] [address] [place] [address], [place] [address] May, [facility] [address] [id number] [address] [place] [address], [place] [address] May, [facility] [address] [id number] [address] [place] [address] Mar, [facility] [address] [id number] [address] [place] [address], [place] [address] Mar, [facility] [address] [id number] [address] [place] [address], [place] [address] Jan, [facility] [address] [id number] [address] [place] [address], [place] [address] Jan, [facility] [address] [id number] [facility] [place] [address] 08 Jan, 2013 [facility] [address] [id number] [facility] [place] [address] 08 Jan, 2014 [facility] [address] [id number] [facility] [place] [address] Jan, 2013 [facility] [address] [id number] [facility] [place] [address] Jan, 2013 [facility] [address] [id number] [facility] [place] [address] Dec, [facility] [address] [id number] [address] [place] [address], [place] [address] Dec, [facility] [address] [id number] [address] [place] [address], [place] [address] Dec, [facility] [address] [id number] [address] [place] [address], [place] [address] Dec, [facility] [address] [id number] [address] [place] [address], [place] [address] Dec, [facility] [address] [id number] [address] [place] [address], [place] [address] Dec, [facility] [address] [id number] [address] [place] [address], [place] [address] Dec, [facility] [address] [id number] [address] [place] [address], [place] [address] Dec, [facility] [address] [id number] [address] [place] [address], [place] [address] Dec, [facility] [address] [id number] [address] [place] [address], [place] [address] Dec, [facility] [address] [id number] [address] [place] [address], [place] [address] Nov, [facility] [address] [id number] [address] [place] [address], [place] [address] Nov, [facility] [address] [id number] [facility] [place] [address] September, [facility] [address] [id number] [address] [place] [address], [place] [address] September, [facility] [address] [id number] [address] [place] [address], [place] [address] September, [facility] [address] [id number] [address] [place] [address], [place] [address] September, [facility] [address] [id number] [address] [place] [address], [place] [address] Aug, [facility] [address] [id number] [address] [place] [address], [place] [address] Aug, [facility] [address] [id number] [address] [place] [address], [place] [address] Aug, [facility] [address] [id number] [address] [place] [address], [place] [address] Aug, [facility] [address] [id number] [address] [place] [address], [place] [address] Aug, [facility] [address] [id number] [address] [place] [address], [place] [address] Aug, [facility] [address] [id number] [address] [place] [address], [place] [address] Aug, [facility] [address] [id number] [address] [place] [address], [place] [address] Aug, [facility] [address] [id number] [address] [place] [address], [place] [address] Aug, [facility] [address] [id number] [address] [place] [address], [place] [address] Aug, [facility] [address] [id number] [address] [place] [address], [place] [address] Aug, [facility] [address] [id number] [facility] [place] [address] 07 Aug, 2013 [facility] [address] [id number] [address] [place] [address], [place] [address] 20 Jul, 2013 [facility] [address] [id number] [address] [place] [address], [place] [address] 20 Jul, 2013 [facility] [address] [id number] [address] [place] [address], [place] [address] Jul, [facility] [address] [id number] [address] [place] [address], [place] [address] Jul, [facility] [address] [id number] [address] [place] [address], [place] [address] Jul, [facility] [address] [id number] [address] [place] [address], [place] [address] Jul, [facility] [address] [id number] [address] [place] [address], [place] [address] 05 Jul, 2013 [facility] [address] [id number] [address] [place] [address], [place] [address] 05 Jul, 2013 [facility] [address] [id number] [address] [place] [address], [place] [address] Jul, [facility] [address] [id number] [address] [place] [address], [place] [address] Jul, [facility] [address] [id number] [address] [place] [address], [place] [address] 28 Jun, 2013 [facility] [address] [id number] [address] [place] [address], [place] [address] 28 Jun, 2013 [facility] [address] [id number] [address] [place] [address], [place] [address] 17 Jun, 2013 [facility] [address] [id number] [address] [place] [address], [place] [address] 17 Jun, 2013 [facility] [address] [id number] [address] [place] [address], [place] [address] Jun, [facility] [address] [id number] [facility] [place] [address] Jun, [facility] [address] [id number] [address] [place] [address], [place] [address] Jun, [facility] [address] [id number] [address] [place] [address], [place] [address] Jun, [facility] [address] [id number] [address] [place] [address], [place] [address] Jun, [facility] [address] [id number] [address] [place] [address], [place] [address] Jun, [facility] [address] [id number] [address] [place] [address], [place] [address] Jun, [facility] [address] [id number] [address] [place] [address], [place] [address] Jun, [facility] [address] [id number] [address] [place] [address], [place] [address] May, [facility] [address] [id number] [address] [place] [address], [place] [address] May, [facility] [address] [id number] [address] [place] [address], [place] [address] May, [facility] [address] [id number] [address] [place] [address], [place] [address] May, [facility] [address] [id number] [address] [place] [address], [place] [address] May, [facility] [address] [id number] [address] [place] [address], [place] [address] May, [facility] [address] [id number] [address] [place] [address], [place] [address] May, [facility] [address] [id number] [address] [place] [address], [place] [address] May, [facility] [address] [id number] [address] [place] [address], [place] [address] May, [facility] [address] [id number] [address] [place] [address], [place] [address] May, [facility] [address] [id number] [address] [place] [address], [place] [address] May, [facility] [address] [id number] [address] [place] [address], [place] [address] May, [facility] [address] [id number] [address] [place] [address], [place] [address] May, [facility] [address] [id number] [address] [place] [address], [place] [address] May, [facility] [address] [id number] [address] [place] [address], [place] [address] May, [facility] [address] [id number] [address] [place] [address], [place] [address] Apr, [facility] [address] [id number] [address] [place] [address], [place] [address] Apr, [facility] [address] [id number] [address] [place] [address], [place] [address] Apr, [facility] [address] [id number] [address] [place] [address], [place] [address] Apr, [facility] [address] [id number] [address] [place] [address], [place] [address] Mar, [facility] [address] [id number] [address] [place] [address], [place] [address] Mar, [facility] [address] [id number] [address] [place] [address], [place] [address] Mar, [facility] [address] [id number] [address] [place] [address], [place] [address] Mar, [facility] [address] [id number] [address] [place] [address], [place] [address] Mar, [facility] [address] [id number] [address] [place] [address], [place] [address] Mar, [facility] [address] [id number] [address] [place] [address], [place] [address] Mar, [facility] [address] [id number] [address] [place] [address], [place] [address] Mar, [facility] [address] [id number] [address] [place] [address], [place] [address] Mar, [facility] [address] [id number] [address] [place] [address], [place] [address] Mar, [facility] [address] [id number] [address] [place] [address], [place] [address] Mar, [facility] [address] [id number] [address] [place] [address], [place] [address] Mar, [facility] [address] [id number] [address] [place] [address], [place] [address] Feb, [facility] [address] [id number] [address] [place] [address], [place] [address] 18 Jan, 2013 [facility] [address] [id number] [address] [place] [address] 17 Jan, 2013 [facility] [address] [id number] [address] [place] [address] 06 Jan, 2013 [facility] [address] [id number] [address] [place] [address] 04 Jan, 2013 [facility] [address] [id number] [address] [place] [address], [place] [address] Jan, [facility] [address] [id number] [address] [place] [address], [place] [address] Dec, [facility] [address] [id number] [address] [place] [address] Dec, [facility] [address] [id number] [address] [place] [address] Dec, [facility] [address] [id number] [address] [place] [address], [place] [address] Dec, [facility] [address] [id number] [address] [place] [address], [place] [address] Dec, [facility] [address] [id number] [address] [place] [address], [place] [address] Dec, [facility] [address] [id number] [address] [place] [address], [place] [address] Dec, [facility] [address] [id number] [address] [place] [address], [place] [address] Dec, [facility] [address] [id number] [address] [place] [address], [place] [address] Nov, [facility] [address] [id number] [address] [place] [address], [place] [address] Nov, [facility] [address] [id number] [address] [place] [address], [place] [address] Nov, [facility] [address] [id number] [address] [place] [address], [place] [address] Nov, [facility] [address] [id number] [address] [place] [address], [place] [address] Nov, [facility] [address] [id number] [address] [place] [address], [place] [address] Nov, [facility] [address] [id number] [address] [place] [address] Oct, [facility] [place] [address] [id number] [id number] Oct, [facility] [place] [address] [id number] [place] [id number] Oct, [facility] [place] [address] [id number] [place] [id number] Oct, [facility] [place] [address] [id number] [facility] [id number] Oct, [facility] [address] [id number] [address] [place] [address], [place] [address] Oct, [facility] [address] [id number] [address] [place] [address], [place] [address] Oct, [facility] [address] [id number] [address] [place] [address], [place] [address] Oct, [facility] [address] [id number] [address] [place] [address], [place] [address] Oct, [facility] [address] [id number] [address] [place] [address], [place] [address] Oct, [facility] [address] [id number] [address] [place] [address], [place] [address] Oct, [facility] [address] [id number] [address] [place] [address], [place] [address] September, [facility] [address] [id number] [address] [place] [address], [place] [address] Aug, [facility] [address] [id number] [address] [place] [address], [place] [address] Aug, [facility] [address] [id number] [address] [place] [address], [place] [address] Aug, [facility] [address] [id number] [address] [place] [address], [place] [address] Aug, [facility] [address] [id number] [address] [place] [address], [place] [address] Jul, [facility] [address] [id number] [address] [place] [address], [place] [address] Jul, [facility] [address] [id number] [address] [place] [address], [place] [address] Jul, [facility] [address] [id number] [address] [place] [address], [place] [address] Jul, [facility] [address] [id number] [address] [place] [address], [place] [address] 04 Jul, 2012 [facility] [address] [id number] [address] [place] [address], [place] [address] 19 Jun, 2012 [facility] [address] [id number] [address] [place] [address], [place] [address] 13 Jun, 2012 [facility] [address] [id number] [address] [place] [address], [place] [address] 11 Jun, 2012 [facility] [address] [id number] [address] [place] [address], [place] [address] May, [facility] [address] [id number] [address] [place] [address], [place] [address] 24 May, 2012 [facility] [address] [id number] [address] [place] [address], [place] [address] 14 May, 2012 [facility] [address] [id number] [address] [place] [address], [place] [address] May, [facility] [address] [id number] [address] [place] [address], [place] [address] May, [facility] [address] [id number] [address] [place] [address], [place] [address] 04 May, 2012 [facility] [address] [id number] [address] [place] [address], [place] [address] 18 Apr, 2012 [facility] [address] [id number] [address] [place] [address], [place] [address] 18 Apr, 2012 [facility] [address] [id number] [address] [place] [address], [place] [address] 13 Apr, 2012 [facility] [address] [id number] [address] [place] [address], [place] [address] 13 Apr, 2012 [facility] [address] [id number] [address] [place] [address], [place] [address] 13 Apr, 2012 [facility] [address] [id number] [address] [place] [address], [place] [address] Apr, [facility] [address] [id number] [address] [place] [address], [place] [address] Apr, [facility] [address] [id number] [address] [place] [address], [place] [address] Mar, [facility] [address] [id number] [address] [place] [address], [place] [address] Mar, [facility] [address] [id number] [address] [place] [address], [place] [address] Mar, [facility] [address] [id number] [address] [place] [address], [place] [address] Mar, [facility] [address] [id number] [address] [place] [address], [place] [address] 18 Jan, 2012 [facility] [address] [id number] [address] [place] [address], [place] [address] Jan, [facility] [address] [id number] [address] [place] [address], [place] [address] Jan, [facility] [address] [id number] [address] [place] [address], [place] [address] Jan, [facility] [place] [address] [id number] [place] [id number] Dec, [facility] [address] [id number] [address] [place] [address], [place] [address] Dec, [facility] [place] [address] [id number] [place] [id number] Dec, [facility] [address] [id number] [address] [place] [address], [place] [address] Dec, [facility] [address] [id number] [address] [place] [address], [place] [address] Dec, [facility] [address] [id number] [address] [place] [address], [place] [address] Dec, [facility] [address] [id number] [address] [address] Nov, [facility] [address] [facility] [id number] [address] [address] Nov, [facility] [address] [facility] [id number] [address] [place] [id number] Nov, IMMUNIZATIONS No Known Immunizations SOCIAL HISTORY Never Assessed REASON FOR VISIT PLAN OF CARE VITAL SIGNS Height 62 in 2013-04-18 Weight 328 lbs 2013-04-18 Temperature 98 degrees Fahrenheit 2013-04-18 Heart Rate 72 bpm 2013-04-18 Respiratory Rate 16 2013-04-18 Blood pressure systolic 118 mmHg 2013-04-18 Blood pressure diastolic 68 mmHg 2013-04-18 MEDICATIONS Unknown Medications RESULTS No Results PROCEDURES [...] Uterine fibroid Medical History colonoscopy with polyp remov ed/ Dr. North and Dr. 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
--- OUTSIDE RECORDS SUMMARY | 2019-11-03 19:19 | XMS REPORT ---
Author Author Anca Lucero Doctor Organization [facility] Address Unknown Phone Unavailable Care Team Providers Care Nurse Practitioner Hospitalist Name Role Phone Migration, Doctor Unavailable Unavailable PROBLEMS Type Condition ICD9-CM Code DCA96-LG Code Onset Dates Condition S tatus SNOMED Code Problem Esophageal reflux K21.9 Active 24 9191521 Problem Dyslipidemia E78.5 12 Oct, 2017 Active 3709 96014 Problem Unspecified hypothyroidism E03.9 Act hernesto 66677523 Problem Generalized anxiety disorder F41.1 Apr, 200 8 Active 39931667 Problem Shortness of breath R06.02 Apr, Active 897071665 Problem Pulmonary embolus I26.99 13 Oct, 2011 Active 79928466 Problem Nonintractable migraine G43.009 08 Oct, 2015 Act hernesto 091990513 Problem Pre-diabetes R73.03 Active 3392158 02 Problem Morbid obesity with BMI of 50.0-59.9, adult Z68.43 Active 717442620 Problem Hypothyroidism E03.9 Active 99659 008 Problem Morbid obesity E66.01 Active 03025 6002 Problem Unspecified sleep apnea G47.30 Active 27709387 Problem Personal history of pulmonary embolism Z86.711 Active 330147374 Problem Osteoarthritis of right knee M17.11 13 May, 201 0 Active 971340910 Problem Renal stones N20.0 Active 6468064 7 Problem Coronary artery disease I25.10 Active 42973580 Problem Hyperlipidemia LDL goal <70 E78.5 Ac tive 04399691 Problem Migraine with aura and without status migrainosu s, not intractable G43.109 Active 7644139 ALLERGIES No Information ENCOUNTERS Encounter Location Date Diagnosis [facility] [address] [facility] [id number] [address] [place] [address] 15 Sep, 2019 [facility] [address] [facility] [id number] [address] [place] [address] 14 Sep, 2019 [facility] [address] [facility] [id number] [address] [place] [address] September, [facility] [address] [facility] [id number] [address] [place] [address] Aug, [facility] [address] [facility] [id number] [address] [place] [address] Aug, History of recurrent UTIs Z8 7.440 and Personal history of pulmonary embolism Z86.711 [facility] [address] [id number] [address] [place] [address] Jul, History of recurrent UTIs Z8 7.440 [place] [address] [address] [facility] [id number] [address] [place] [address] Jun, Personal history of pulmonar y embolism Z86.711 [place] [address] [address] [facility] [id number] [address] [place] [address] Jun, Personal history of pulmonar y embolism Z86.711 [place] [address] [address] 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 [id number] [address] [place] [address] Apr, Non-recurrent acute suppurat hernesto otitis media of both ears without spontaneous rupture of tympanic membranes H66.003 [place] [address] [address] [facility] [id number] [address] [place] [address] Feb, Pre-diabetes R73.03 and Hype rlipidemia LDL goal <70 E78.5 [place] [address] [address] [facility] [id number] [address] [place] [address] Feb, [facility] [address] [facility] [id number] [address] [place] [address] Feb, [place] [address] [address] [facility] [id number] [address] [place] [address] 30 Jan, 2019 [facility] [address] [facility] [id number] [address] [place] [address] Jan, [facility] [address] [facility] [id number] [address] [place] [address] 18 Jan, 2019 Encounter for Medicare annua l wellness exam Z00.00 ; Hyperlipidemia LDL goal <70 E78.5 ; Coronary artery disease I25.10 ; Hypothyroidism E03.9 ; Osteoarthritis of right knee M17.11 ; Morbid obesity with BMI of 50.0-59.9, adult Z68.43 and Esophageal reflux K21.9 [facility] [address] [facility] [id number] [address] [place] [address] 13 Jan, 2019 Dysuria R30.0 and Hematuria, unspecified type R31.9 [place] [address] [address] [facility] [id number] [address] [place] [address] Jan, Hematuria, unspecified type R31.9 [facility] [address] [facility] [id number] [address] [place] [address] Dec, Hematuria, unspecified type R31.9 [facility] [address] [facility] [id number] [address] [place] [address] Nov, Hematuria, unspecified type R31.[id number] [place] [address] Nov, Other microscopic hematuria R31.29 [facility] [address] [facility] [id number] [address] [place] [address] Nov, Vaginal gena B37.3 ; Othe r microscopic hematuria R31.29 and Morbid obesity E66.01 [facility] [address] [facility] [id number] [address] [place] [address] Nov, [facility] [address] [facility] [id number] [address] [place] [address] Nov, [facility] [address] [address] Nov, UTI symptoms R39.9 and Morbi d obesity E66.01 [place] [address] [address] Nov, [place] [address] [address] September, [place] [address] [address] September, [place] [address] [address] Aug, Right foot pain M79.671 and Morbid obesity E66.01 [place] [address] [address] Jul, Right foot pain M79.671 and Morbid obesity E66.01 [facility] [place] [address] [address] Jul, Injury of right foot, initia l encounter S99.921A and Morbid obesity E66.01 [place] [address] [address] Jul, Recurrent syncope R55 and Mo rbid obesity E66.01 [place] [address] [address] Jul, [place] [address] [address] Jun, Hematuria, unspecified type R31.9 and BMI 50.0-59.9, adult Z68.43 [place] [address] [address] Jun, [address] 340[id number] [place] [address] 04 Jun, 2018 [facility] current use of ant icoagulant Z79.01 [facility] [address] [place] [id number] [place] [address] May, Ankle pain, right M25.571 an d BMI 50.0-59.9, adult Z68.43 [facility] [address] [address] May, [facility] [address] [address] May, [facility] [address] [address] Apr, [facility] [address] [address] Apr, [facility] [address] [address] Apr, [facility] [address] [address] Apr, BMI 50.0-59.9, adult Z68.43 and Weakness R53.1 [facility] [address] [address] Apr, [facility] [address] [address] Apr, Dysuria R30.0 ; Hematuria R3 1.9 ; Renal lithiasis N20.0 and BMI 50.0-59.9, adult Z68.43 [facility] [address] [address] Apr, [place] [address] [address] Apr, [place] [address] [address] Apr, Hypothyroidism E03.9 [facility] [address] [place] [id number] [place] [address] Apr, Burning with urination R30.0 ; Type 2 diabetes mellitus with diabetic neuropathic arthropathy, 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 ; Acute bilateral low back pain without sciatica M54.5 and BMI 50.0- 59.9, adult Z68.43 [facility] [address] [place] [id number] [address] [place] [address] 02 Mar, 2018 Hypothyroidism E03.9 [facility] [address] [address] Feb, [facility] [address] [address] Jan, [place] [address] [address] Jan, Acute non-recurrent maxillar y sinusitis J01.00 and BMI 50.0-59.9, adult Z68.43 [facility] [address] [address] Jan, Congestion of upper respirat ory tract J98.8 and BMI 50.0-59.9, adult Z68.43 [place] [id number] [address] Dec, Type 2 diabetes mellitus wit h diabetic neuropathic arthropathy, 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 ; Morbid obesity with BMI of 50.0-59.9, adult Z68.43 ; Hypothyroidism E03.9 ; Coronary artery disease I25.10 ; Hyperlipidemia LDL goal <70 E78.5 ; Right lower quadrant abdominal pain R10.31 and Acute cystitis with hematuria N30.01 [facility] [address] [address] Dec, Migraine with aura and witho ut status migrainosus, not intractable G43.109 ; Dehydration symptoms R63.8 and BMI 50.0-59.9, adult Z68.43 [facility] [address] [address] Oct, [facility] [address] [place] [address] Oct, [place] [address] [address] Oct, [facility] [address] [place] [id number] [address] [place] [address] September, [place] [address] [address] September, Type 2 diabetes mellitus wit h diabetic neuropathic arthropathy, 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 ; Hyperlipidemia, unspecified hyperlipidemia type E78.5 ; Personal history of pulmonary embolism Z86.711 ; Coronary artery disease I25.10 and Hypothyroidism E03.9 [place] [address] [address] September, [place] [address] [address] Aug, Type 2 diabetes mellitus wit h [...] without aura and with status migrainosus G43.011 [facility] [address] [place] [address] Aug, [place] [address] [address] [place] [address] Aug, [place] [address] [address] [place] [id number] [place] [address] Jul, Renal stones N20.0 [facility] [address] [place] [id number] [address] [place] [address] Jun, Back pain M54.9 ; Kidney sto radha N20.0 and BMI 50.0-59.9, adult Z68.43 [place] [address] [address] Jun, [place] [address] [address] Apr, [place] [address] [address] Apr, [place] [address] [address] Apr, Right foot pain M79.671 ; Ac [facility] gout involving toe of right foot, 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 and Arthritis M19.90 [place] [address] [address] 06 Apr, 2017 Gastroesophageal reflux dise ase without esophagitis K21.9 [place] [address] [address] 16 Mar, 2017 Hypothyroidism, unspecified E03.9 [place] [address] [address] 11 Feb, 2017 [place] [address] [address] 25 Jan, 2017 Cervicalgia of occipito-atla nto-axial region M54.2 and Persistent headaches R51 [place] [address] [address] 20 Jan, 2017 [place] [address] [address] 12 Jan, 2017 Intractable migraine without aura and with status migrainosus G43.011 ; Cervical spine pain M54.2 ; Hyperlipidemia, unspecified hyperlipidemia type E78.5 ; Hypothyroidism E03.9 and Metabolic syndrome E88.[address] [address] Jan, Hypothyroidism, unspecified E03.9 [place] [id number] [place] [id number] [place] [address] Dec, Hypothyroidism, unspecified E03.9 [place] [address] [address] Dec, Hypothyroidism E03.9 [place] [address] [address] Nov, Laceration of left great toe w/o foreign body w/o damage to nail, initial encounter S91.112A [facility] [address] [address] Oct, Pain in left knee M25.562 an d Arthritis M19.90 [place] [address] [address] Oct, Hypothyroidism, unspecified E03.9 and Hyperlipidemia, unspecified hyperlipidemia type E78.5 [place] [address] [address] Oct, Gastroesophageal reflux dise ase without esophagitis K21.9 [place] [address] [address] 14 Oct, 2016 Metabolic syndrome E88.81 ; Personal history of pulmonary embolism Z86.711 ; Other specified hypothyroidism E03.8 and Hyperlipidemia, unspecified hyperlipidemia type E78.5 [place] [address] [address] 13 Oct, 2016 Personal history of pulmonar y embolism Z86.711 ; Dysuria R30.0 ; Metabolic syndrome E88.81 ; Other specified hypothyroidism E03.8 ; Hyperlipidemia, unspecified hyperlipidemia type E78.5 and Morbid obesity with BMI of 50.0-59.9, adult Z68.43 [place] [address] [address] September, [facility] [address] [address] September, Wrist pain, left M25.532 and Acute pain of left knee M25.562 [place] [address] [address] Jul, Dysuria R30.0 [place] [address] [address] Jul, Dysuria R30.0 [place] [address] [address] 16 Jul, 2016 Left lower quadrant pain R10 .32 [place] [address] [address] Jul, [place] [address] [address] Jul, Coronary artery disease I25. 10 ; Family history of diabetes mellitus Z83.3 ; Morbid obesity with BMI of 50.0-59.9, adult Z68.43 ; Metabolic syndrome E88.81 ; Personal history of pulmonary embolism Z86.711 ; Gastroesophageal reflux disease without esophagitis K21.9 ; Hypothyroidism, unspecified E03.9 ; Hyperlipidemia, unspecified hyperlipidemia type E78.5 and Left lower quadrant pain R10.32 [facility] [address] [address] Jul, [facility] [address] [address] Jul, Morbid obesity with BMI of 5 0.0-59.9, adult Z68.43 [facility] [address] [address] Jul, Generalized abdominal pain R 10.84 [facility] [place] [id number] [place] [address] Jun, Muscle strain of right upper back, initial encounter S29.012A [facility] [address] [address] May, Foreign body (FB) in soft ti ssue M79.5 [place] [address] [address] [place] [id number] [place] [address] Mar, Hypothyroidism, unspecified E03.9 and Arthritis M19.90 [place] [address] [address] [place] [id number] [place] [address] 13 Feb, 2016 Coronary artery disease I25. 10 ; Morbid obesity with BMI of 50.0- 59.9, adult Z68.43 ; Metabolic syndrome E88.81 ; Gastroesophageal reflux disease without esophagitis K21.9 ; Hypothyroidism, unspecified E03.9 ; Personal history of pulmonary embolism Z86.711 and Hyperlipidemia, unspecified hyperlipidemia type E78.5 [place] [address] [address] [place] [id number] [place] [address] 10 Feb, 2016 [facility] [address] [place] [id number] [place] [address] 12 Jan, 2016 Acute right-sided thoracic b ack pain M54.6 [place] [address] [address] [place] [id number] [place] [address] Jan, Acute pain of left knee M25. 562 [place] [address] [address] [place] [id number] [place] [address] 18 Dec, 2015 Dysuria R30.0 ; Metabolic sy ndrome E88.81 ; Acute pain of left knee M25.562 ; Acute cystitis with hematuria N30.01 and Acute left eye pain H57.12 [place] [address] [address] [facility] [id number] [address] [place] [address] Dec, [place] [address] [address] [place] [id number] [place] [address] Dec, [place] [address] [address] [facility] [id number] [address] [place] [address] Dec, Hypothyroidism, unspecified E03.9 [place] [address] [address] [place] [id number] [place] [address] Dec, [place] [id number] [facility] [id number] [address] [place] [address] Nov, Peripheral edema R60.9 and A cute pain of left knee M25.562 [facility] [place] [address] [address] [facility] [id number] [address] [place] [address] September, [place] [address] [address] [facility] [id number] [address] [place] [address] September, Metabolic syndrome E88.81 an d Allergy, subsequent encounter T78.40XD [facility] [place] [address] [address] [facility] [id number] [place] [address] September, Muscle strain T14.8 [place] [address] [address] [facility] [id number] [address] [place] [address] Aug, Chest pressure R07.89 ; Westby bolic syndrome E88.81 ; Morbid obesity with BMI of 50.0-59.9, adult Z68.43 ; Esophageal reflux 530.81 and Shortness of breath R06.02 [place] [address] [address] [facility] [id number] [address] [place] [address] Aug, [place] [address] [address] [facility] [id number] [address] [place] [address] Aug, [place] [address] [address] [facility] [id number] [address] [place] [address] Aug, Hypothyroidism, unspecified E03.9 [place] [address] [address] [facility] [id number] [address] [place] [address] Aug, Routine health maintenance Z 00.00 [facility] [place] [address] [address] [facility] [id number] [address] [place] [address] Aug, [place] [address] [address] [facility] [id number] [address] [place] [address] Jul, Routine health maintenance Z 00.00 ; Family history of diabetes mellitus Z83.3 ; Family history of cancer Z80.9 and Morbid obesity with BMI of 50.0-59.9, adult Z68.43 [facility] [address] [place] [id number] [address] [place] [address] 28 Jul, 2016 Allergic rhinitis J30.9 and Postnasal drip R09.82 [place] [address] [address] [place] [id number] [place] [address] 18 Jul, 2015 Influenza J11.1 [facility] [address] [place] [address] 08 Jul, 2015 Dysuria R30.0 [place] [address] [address] Apr, [place] [address] [address] Mar, Acute upper respiratory infe ction, unspecified J06.9 and Hypothyroidism E03.9 [place] [address] [address] Mar, [place] [address] [address] Feb, Coronary artery disease I25. 10 [place] [address] [address] Feb, Left foot pain M79.672 [place] [address] [address] [place] [id number] [place] [address] Jan, UTI (urinary tract infection ) 599.0 [place] [address] [address] [place] [id number] [place] [address] Jan, Urinary tract infection, sit e not specified 599.0 [place] [address] [address] [place] [id number] [place] [address] Jan, Urinary tract infection, sit e not specified 599.0 [place] [address] [address] [place] [id number] [place] [address] Jan, [facility] [address] [place] [id number] [place] [address] Dec, Headache 784.0 [facility] [address] [facility] [id number] [address] [place] [address] Dec, Urinary tract infection, sit e not specified 599.0 [facility] [address] [place] [id number] [place] [address] Dec, Urinary tract infection, sit e not specified 599.0 [facility] [address] [place] [id number] [place] [address] Dec, Urinary tract infection, sit e not specified 599.0 [facility] [address] [place] [id number] [place] [address] Nov, Unspecified sleep apnea 780. 57 ; Encounter for long-term (current) use of anticoagulants V58.61 ; Routine general medical examination at health care facility V70.0 and Arthritis of both knees 716.96 [facility] [address] [place] [address] September, Cat bite of hand 882.0 and R ectal bleeding 569.3 [facility] [address] [place] [id number] [place] [address] Aug, [facility] [address] [place] [id number] [place] [address] Aug, [facility] [address] [place] [id number] [place] [address] Jul, [facility] [address] [place] [id number] [place] [address] Jul, [facility] [address] [place] [id number] [place] [address] Jul, [facility] [address] [id number] [address] [place] [id number] Jul, [facility] [address] [id number] [address] [place] [address], [place] [id number] Jul, [facility] [address] [id number] [address] [place] [address], [place] [id number] Jul, [facility] [address] [id number] [address] [place] [address], [place] [id number] Jul, [facility] [address] [id number] [address] [place] [address], [place] [id number] Jul, [facility] [address] [id number] [address] [place] [address], [place] [id number] May, [facility] [address] [id number] [address] [place] [address], [place] [id number] May, [facility] [address] [id number] [address] [place] [address], [place] [id number] May, [facility] [address] [id number] [address] [place] [address], [place] [id number] May, [facility] [address] [id number] [address] [place] [address], [place] [id number] May, [facility] [address] [id number] [address] [place] [address], [place] [id number] May, [facility] [address] [id number] [address] [place] [address], [place] [id number] May, [facility] [address] [id number] [address] [place] [address], [place] [address] Mar, [facility] [address] [id number] [address] [place] [address], [place] [address] Mar, [facility] [address] [id number] [address] [place] [address], [place] [address] Jan, [facility] [address] [id number] [address] [place] [address], [place] [address] Jan, [facility] [address] [id number] [address] [place] [address], [place] [address] Jan, [facility] [address] [id number] [address] [place] [address], [place] [address] Jan, [facility] [address] [id number] [address] [place] [address], [place] [address] Jan, [facility] [address] [id number] [address] [place] [address], [place] [address] Jan, [facility] [address] [id number] [address] [place] [address], [place] [address] Dec, [facility] [address] [id number] [address] [place] [address], [place] [address] Dec, [facility] [address] [id number] [address] [place] [address], [place] [address] Dec, [facility] [address] [id number] [address] [place] [address], [place] [address] Dec, [facility] [address] [id number] [address] [place] [address], [place] [address] Dec, [facility] [address] [id number] [address] [place] [address], [place] [address] Dec, [facility] [address] [id number] [address] [place] [address], [place] [address] Dec, [facility] [address] [id number] [address] [place] [address], [place] [address] Dec, [facility] [address] [id number] [address] [place] [address], [place] [address] Dec, [facility] [address] [id number] [address] [place] [address], [place] [address] Dec, [facility] [address] [id number] [address] [place] [address], [place] [address] Nov, [facility] [address] [id number] [address] [place] [address], [place] [address] Nov, [facility] [address] [id number] [address] [place] [address], [place] [address] September, [facility] [address] [id number] [address] [place] [address], [place] [address] September, [facility] [address] [id number] [address] [place] [address], [place] [address] September, [facility] [address] [id number] [address] [place] [address], [place] [address] September, [facility] [address] [id number] [address] [place] [address], [place] [address] Aug, [facility] [address] [id number] [address] [place] [address], [place] [address] Aug, [facility] [address] [id number] [address] [place] [address], [place] [address] Aug, [facility] [address] [id number] [address] [place] [address], [place] [address] Aug, [facility] [address] [id number] [address] [place] [address], [place] [address] Aug, [facility] [address] [id number] [address] [place] [address], [place] [address] Aug, [facility] [address] [id number] [address] [place] [address], [place] [address] Aug, [facility] [address] [id number] [address] [place] [address], [place] [address] Aug, [facility] [address] [id number] [address] [place] [address], [place] [address] Aug, [facility] [address] [id number] [address] [place] [address], [place] [address] Aug, [facility] [address] [id number] [address] [place] [address], [place] [address] Aug, [facility] [address] [id number] [address] [place] [address], [place] [address] Aug, [facility] [address] [id number] [facility] [place] [address] 20 Jul, 2013 [facility] [address] [id number] [address] [place] [address], [place] [address] Jul, [facility] [address] [id number] [facility] [place] [address] Jul, [facility] [address] [id number] [address] [place] [address], [place] [address] Jul, [facility] [address] [id number] [address] [place] [address], [place] [address] 06 Jul, 2013 [facility] [address] [id number] [address] [place] [address], [place] [id number] 06 Jul, 2013 [facility] [address] [id number] [address] [place] [address], [place] [id number] 05 Jul, 2013 [facility] [address] [id number] [address] [place] [address], [place] [id number] 05 Jul, 2013 [facility] [address] [id number] [address] [place] [address], [place] [address] Jul, [facility] [address] [id number] [address] [place] [address], [place] [address] Jul, [facility] [address] [id number] [address] [place] [address], [place] [address] 28 Jun, 2013 [facility] [address] [id number] [address] [place] [address], [place] [id number] 28 Jun, 2013 [facility] [address] [id number] [address] [place] [address], [place] [address] 17 Jun, 2013 [facility] [address] [id number] [address] [place] [address], [place] [id number] 17 Jun, 2013 [facility] [address] [id number] [address] [place] [address], [place] [address] 13 Jun, 2013 [facility] [address] [id number] [address] [place] [address], [place] [address] Jun, [facility] [address] [id number] [address] [place] [address], [place] [address] Jun, [facility] [address] [id number] [address] [place] [address], [place] [address] Jun, [facility] [address] [id number] [address] [place] [address], [place] [address] Jun, [facility] [address] [id number] [address] [place] [address], [place] [address] Jun, [facility] [address] [id number] [address] [place] [address], [place] [address] Jun, [facility] [address] [id number] [address] [place] [address], [place] [address] Jun, [facility] [address] [id number] [address] [place] [address], [place] [address] May, [facility] [address] [id number] [address] [place] [address], [place] [address] May, [facility] [address] [id number] [address] [place] [address], [place] [address] May, [facility] [address] [id number] [address] [place] [address], [place] [address] May, [facility] [address] [id number] [address] [place] [address], [place] [address] May, [facility] [address] [id number] [address] [place] [address], [place] [address] May, [facility] [address] [id number] [address] [place] [address], [place] [address] May, [facility] [address] [id number] [address] [place] [address], [place] [address] May, [facility] [address] [id number] [address] [place] [address], [place] [address] May, [facility] [address] [id number] [address] [place] [address], [place] [address] May, [facility] [address] [id number] [address] [place] [address], [place] [address] May, [facility] [address] [id number] [address] [place] [address], [place] [address] May, [facility] [address] [id number] [address] [place] [address], [place] [address] May, [facility] [address] [id number] [address] [place] [address], [place] [address] May, [facility] [address] [id number] [address] [place] [address], [place] [address] May, [facility] [address] [id number] [address] [place] [address], [place] [address] Apr, [facility] [address] [id number] [address] [place] [address], [place] [address] Apr, [facility] [address] [id number] [address] [place] [address], [place] [address] Apr, [facility] [address] [id number] [address] [place] [address], [place] [address] Apr, [facility] [address] [id number] [address] [place] [address], [place] [address] Mar, [facility] [address] [id number] [address] [place] [address], [place] [address] Mar, [facility] [address] [id number] [address] [place] [address], [place] [address] Mar, [facility] [address] [id number] [address] [place] [address], [place] [address] Mar, [facility] [address] [id number] [address] [place] [address], [place] [address] Mar, [facility] [address] [id number] [address] [place] [address], [place] [address] Mar, [facility] [address] [id number] [address] [place] [address], [place] [address] Mar, [facility] [address] [id number] [address] [place] [address], [place] [address] Mar, [facility] [address] [id number] [address] [place] [address], [place] [address] Mar, [facility] [address] [id number] [address] [place] [address], [place] [address] Mar, [facility] [address] [id number] [address] [place] [address], [place] [address] Mar, [facility] [address] [id number] [address] [place] [address], [place] [address] Mar, [facility] [address] [id number] [address] [place] [address], [place] [address] Feb, [facility] [address] [id number] [address] [place] [address], [place] [address] 18 Jan, 2013 [facility] [address] [id number] [address] [place] [address], [place] [id number] 17 Jan, 2013 [facility] [address] [id number] [address] [place] [address], [place] [address] 06 Jan, 2013 [facility] [address] [id number] [address] [place] [address], [place] [address] 04 Jan, 2013 [facility] [address] [id number] [address] [place] [id number] Jan, [facility] [address] [id number] [address] [place] [address], [place] [address] Dec, [facility] [address] [id number] [address] [place] [address], [place] [address] Dec, [facility] [address] [id number] [address] [place] [address], [place] [address] Dec, [facility] [address] [id number] [facility] [place] [address] Dec, [facility] [address] [id number] [address] [place] [address], [place] [address] Dec, [facility] [address] [id number] [address] [place] [address], [place] [address] Dec, [facility] [address] [id number] [address] [place] [address], [place] [address] Dec, [facility] [address] [id number] [address] [place] [address], [place] [address] Dec, [facility] [address] [id number] [address] [place] [address], [place] [address] Nov, [facility] [address] [id number] [address] [place] [address], [place] [address] Nov, [facility] [address] [id number] [address] [place] [address], [place] [address] Nov, [facility] [address] [id number] [address] [place] [address], [place] [address] Nov, [facility] [address] [id number] [address] [place] [address], [place] [address] Nov, [facility] [address] [id number] [address] [place] [address], [place] [address] Nov, [facility] [address] [id number] [address] [place] [address], [place] [address] Oct, [facility] [address] [id number] [place] [id number] Oct, [facility] [place] [address] [id number] [place] [id number] Oct, [facility] [place] [address] [id number] [place] [id number] Oct, [facility] [place] [address] [id number] [place] [id number] Oct, [facility] [address] [id number] [address] [place] [address], [place] [address] 13 Oct, 2012 [facility] [address] [id number] [address] [place] [address], [place] [address] Oct, [facility] [address] [id number] [address] [place] [address], [place] [address] Oct, [facility] [address] [id number] [address] [place] [address], [place] [address] Oct, [facility] [address] [id number] [address] [place] [address], [place] [address] Oct, [facility] [address] [id number] [address] [place] [address], [place] [address] 05 Oct, 2012 [facility] [address] [id number] [address] [place] [address], [place] [address] September, [facility] [address] [id number] [address] [place] [address], [place] [address] Aug, [facility] [address] [id number] [address] [place] [address], [place] [address] Aug, [facility] [address] [id number] [address] [place] [address], [place] [address] Aug, [facility] [address] [id number] [address] [place] [address], [place] [address] Aug, [facility] [address] [id number] [address] [place] [address], [place] [address] 24 Jul, 2012 [facility] [address] [id number] [address] [place] [address], [place] [address] Jul, [facility] [address] [id number] [address] [place] [address], [place] [address] Jul, [facility] [address] [id number] [address] [place] [address], [place] [address] 05 Jul, 2012 [facility] [address] [id number] [address] [place] [address], [place] [address] Jul, [facility] [address] [id number] [address] [place] [address], [place] [address] 19 Jun, 2012 [facility] [address] [id number] [address] [place] [address], [place] [address] 13 Jun, 2012 [facility] [address] [id number] [address] [place] [address], [place] [address] 11 Jun, 2012 [facility] [address] [id number] [address] [place] [address], [place] [address] May, [facility] [address] [id number] [address] [place] [address], [place] [address] 24 May, 2012 [facility] [address] [id number] [address] [place] [address], [place] [address] May, [facility] [address] [id number] [address] [place] [address], [place] [address] May, [facility] [address] [id number] [address] [place] [address], [place] [address] May, [facility] [address] [id number] [address] [place] [address], [place] [address] May, [facility] [address] [id number] [address] [place] [address], [place] [address] 18 Apr, 2012 [facility] [address] [id number] [address] [place] [address], [place] [address] 18 Apr, 2012 [facility] [address] [id number] [address] [place] [address], [place] [address] 13 Apr, 2012 [facility] [address] [id number] [address] [place] [address], [place] [address] 13 Apr, 2012 [facility] [address] [id number] [address] [place] [address], [place] [address] 13 Apr, 2012 [facility] [address] [id number] [address] [place] [address], [place] [id number] 11 Apr, 2012 [facility] [address] [id number] [address] [place] [id number] Apr, [facility] [address] [id number] [address] [place] [address], [place] [address] Mar, [facility] [address] [id number] [address] [place] [address], [place] [address] Mar, [facility] [address] [id number] [address] [place] [address], [place] [address] Mar, [facility] [address] [id number] [address] [place] [address], [place] [address] Mar, [facility] [address] [id number] [address] [place] [address], [place] [address] Jan, [facility] [address] [id number] [address] [place] [address], [place] [address] Jan, [facility] [address] [id number] [address] [place] [address], [place] [address] Jan, [facility] [address] [id number] [address] [place] [address], [place] [address] Jan, [facility] [address] [id number] [id number] Dec, [facility] [address] [id number] [address] [place] [id number] Dec, [facility] [address] [id number] [place] [id number] Dec, [facility] [address] [id number] [address] [place] [id number] Dec, [facility] [address] [id number] [address] [place] [address], [place] [id number] Dec, [facility] [address] [id number] [address] [place] [address], [place] [id number] Dec, [facility] [address] [id number] [address] [place] [address], [place] [id number] Nov, [facility] [address] [id number] [address] [place] [id number] Nov, [facility] [address] [facility] [id number] [address] [place] [id number] Nov, IMMUNIZATIONS No Known Immunizations SOCIAL HISTORY [...] asthma(493.90) Medical History Near syncope Medical History [facility] current use of anticoagulant Medical History Renal [...] Stent placed 08/19/2017 Hospitalization History Syncope- [facility] 12/2017 Hospitalization History heart cath ( 06/23/18-06/25/2018) Hospitalization History heart problem, overnight stay 9
--- OUTSIDE RECORDS SUMMARY | 2019-11-03 19:19 | XMS REPORT ---
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 Name Role Phone Migration, Doctor Unavailable Unavailable PROBLEMS Type Condition ICD9-CM Code FGT41-XF Code Onset Dates Condition S tatus SNOMED Code Problem Esophageal reflux K21.9 Active 24 8764582 Problem Dyslipidemia E78.5 12 Oct, 2017 Active 3709 53901 Problem Unspecified hypothyroidism E03.9 Act hernesto 53555823 Problem Generalized anxiety disorder F41.1 Apr, 200 8 Active 38434388 Problem Shortness of breath R06.02 Apr, Active 717671407 Problem Pulmonary embolus I26.99 13 Oct, 2011 Active 73977809 Problem Nonintractable migraine G43.009 08 Oct, 2015 Act hernesto 667347146 Problem Pre-diabetes R73.03 Active 4472289 02 Problem Morbid obesity with BMI of 50.0-59.9, adult Z68.43 Active 454234015 Problem Hypothyroidism E03.9 Active 12569 008 Problem Morbid obesity E66.01 Active 45531 6002 Problem Unspecified sleep apnea G47.30 Active 85255456 Problem Personal history of pulmonary embolism Z86.711 Active 745200174 Problem Osteoarthritis of right knee M17.11 13 May, 201 0 Active 847313407 Problem Renal stones N20.0 Active 4258505 7 Problem Coronary artery disease I25.10 Active 65080142 Problem Hyperlipidemia LDL goal <70 E78.5 Ac tive 06868111 Problem Migraine with aura and without status migrainosu s, not intractable G43.109 Active 0649778 ALLERGIES No Information ENCOUNTERS Encounter Location Date Diagnosis [facility] [address] [facility] [id number] [address] [place] [phone] 15 Sep, 2019 [facility] [address] [facility] [id number] [address] [place] [address] 14 Sep, 2019 [facility] [address] [facility] [id number] [address] [place] [phone] September, [facility] [address] [facility] [id number] [address] [place] [phone] Aug, [facility] [address] [facility] [id number] [address] [place] [phone] Aug, History of recurrent UTIs Z8 7.440 and Personal history of pulmonary embolism Z86.711 [facility] [address] [id number] [address] [place] [address] Jul, History of recurrent UTIs Z8 7.440 [place] [address] [address] [facility] [id number] [address] [place] [phone] Jun, Personal history of pulmonar y embolism Z86.711 [place] [address] [facility] [id number] [address] [place] [phone] Jun, Personal history of pulmonar y embolism Z86.711 [place] [address] [facility] [id number] [address] [place] [phone] May, [facility] [address] [id number] [address] May, 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 and Dizziness R42 [facility] [address] [facility] [id number] [address] [place] [phone] Apr, Non-recurrent acute suppurat hernesto otitis media of both ears without spontaneous rupture of tympanic membranes H66.003 [place] [address] [address] [facility] [id number] [address] [place] [address] Feb, Pre-diabetes R73.03 and Hype rlipidemia LDL goal <70 E78.5 [place] [address] [facility] [id number] [address] [place] [phone] Feb, [facility] [address] [facility] [id number] [address] [place] [phone] Feb, [place] [address] [facility] [id number] [address] [place] [phone] 30 Jan, 2019 [facility] [address] [facility] [id number] [address] [place] [phone] Jan, [facility] [address] [facility] [id number] [address] [place] [address] 18 Jan, 2019 Encounter for Medicare annua l wellness exam Z00.00 ; Hyperlipidemia LDL goal <70 E78.5 ; Coronary artery disease I25.10 ; Hypothyroidism E03.9 ; Osteoarthritis of right knee M17.11 ; Morbid obesity with BMI of 50.0-59.9, adult Z68.43 and Esophageal reflux K21.9 [facility] [address] [facility] [id number] [address] [place] [address] 13 Jan, 2019 Dysuria R30.0 and Hematuria, unspecified type R31.9 [place] [address] [facility] [id number] [address] [place] [phone] Jan, Hematuria, unspecified type R31.9 [facility] [address] [facility] [id number] [address] [place] [phone] Dec, Hematuria, unspecified type R31.9 [facility] [address] [facility] [id number] [address] [place] [phone] Nov, Hematuria, unspecified type R31.[id number] [place] [address] Nov, Other microscopic hematuria R31.29 [facility] [address] [facility] [id number] [address] [place] [address] Nov, Vaginal gena B37.3 ; Othe r microscopic hematuria R31.29 and Morbid obesity E66.01 [facility] [address] [facility] [id number] [address] [place] [phone] Nov, [facility] [address] [facility] [id number] [address] [place] [phone] Nov, [facility] [address] [address] Nov, UTI symptoms R39.9 and Morbi d obesity E66.01 [place] [address] [address] Nov, [place] [address] [address] September, [place] [address] [address] September, [place] [address] [address] Aug, Right foot pain M79.671 and Morbid obesity E66.01 [place] [address] [address] Jul, Right foot pain M79.671 and Morbid obesity E66.01 [facility] [place] [address] [address] Jul, Injury of right foot, initia l encounter S99.921A and Morbid obesity E66.01 [place] [address] [address] Jul, Recurrent syncope R55 and Mo rbid obesity E66.01 [place] [address] [address] Jul, [place] [address] [address] Jun, Hematuria, unspecified type R31.9 and BMI 50.0-59.9, adult Z68.43 [place] [address] [address] Jun, [id number] [place] [phone] 04 Jun, 2018 group home current use of ant icoagulant Z79.01 [facility] [address] [place] [id number] [place] [address] May, Ankle pain, right M25.571 an d BMI 50.0-59.9, adult Z68.43 [facility] [address] [address] May, [facility] [address] [address] May, [facility] [address] [address] Apr, [facility] [address] [address] Apr, [facility] [address] [address] Apr, [facility] [address] [address] Apr, BMI 50.0-59.9, adult Z68.43 and Weakness R53.1 [facility] [address] [address] Apr, [facility] IN [facility] [address] [address] Apr, Dysuria R30.0 ; Hematuria R3 1.9 ; Renal lithiasis N20.0 and BMI 50.0-59.9, adult Z68.43 [facility] [address] [address] Apr, [place] [address] [address] Apr, [place] [address] [address] Apr, Hypothyroidism E03.9 [facility] [address] [place] [id number] [place] [address] Apr, Burning with urination R30.0 ; Type 2 diabetes mellitus with diabetic neuropathic arthropathy, 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 ; Acute bilateral low back pain without sciatica M54.5 and BMI 50.0- 59.9, adult Z68.43 [facility] [address] [place] [id number] [place] [address] 02 Mar, 2018 Hypothyroidism E03.9 [facility] [address] [address] Feb, [facility] IN [facility] [address] [address] Jan, [place] [address] [address] Jan, Acute non-recurrent maxillar y sinusitis J01.00 and BMI 50.0-59.9, adult Z68.43 [facility] IN [facility] [address] [address] Jan, Congestion of upper respirat ory tract J98.8 and BMI 50.0-59.9, adult Z68.43 [place] [id number] [address] Dec, Type 2 diabetes mellitus wit h diabetic neuropathic arthropathy, 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 ; Morbid obesity with BMI of 50.0-59.9, adult Z68.43 ; Hypothyroidism E03.9 ; Coronary artery disease I25.10 ; Hyperlipidemia LDL goal <70 E78.5 ; Right lower quadrant abdominal pain R10.31 and Acute cystitis with hematuria N30.01 [facility] [address] [address] Dec, Migraine with aura and witho ut status migrainosus, not intractable G43.109 ; Dehydration symptoms R63.8 and BMI 50.0-59.9, adult Z68.43 [facility] [address] [address] Oct, [facility] [address] [place] [address] Oct, [place] [address] [address] Oct, [facility] [address] [place] [id number] [place] [address] September, [place] [address] [address] September, Type 2 diabetes mellitus wit h diabetic neuropathic arthropathy, 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 ; Hyperlipidemia, unspecified hyperlipidemia type E78.5 ; Personal history of pulmonary embolism Z86.711 ; Coronary artery disease I25.10 and Hypothyroidism E03.9 [place] [address] [address] September, [place] [address] [address] Aug, Type 2 diabetes mellitus wit h [...] without aura and with status migrainosus G43.011 [facility] [address] [place] [address] Aug, [place] [address] [place] [address] Aug, [place] [address] [place] [id number] [place] [address] Jul, Renal stones N20.0 [facility] IN [facility] [address] [place] [id number] [address] [place] [address] Jun, Back pain M54.9 ; Kidney sto radha N20.0 and BMI 50.0-59.9, adult Z68.43 [place] [address] [address] Jun, [place] [address] [address] Apr, [place] [address] [address] Apr, [place] [address] [address] Apr, Right foot pain M79.671 ; Ac false pass gout involving toe of right foot, 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 and Arthritis M19.90 [place] [address] [address] 06 Apr, 2017 Gastroesophageal reflux dise ase without esophagitis K21.9 [place] [address] [address] 16 Mar, 2017 Hypothyroidism, unspecified E03.9 [place] [address] [address] 11 Feb, 2017 [place] [address] [address] 25 Jan, 2017 Cervicalgia of occipito-atla nto-axial region M54.2 and Persistent headaches R51 [place] [address] [address] 20 Jan, 2017 [place] [address] [address] 12 Jan, 2017 Intractable migraine without aura and with status migrainosus G43.011 ; Cervical spine pain M54.2 ; Hyperlipidemia, unspecified hyperlipidemia type E78.5 ; Hypothyroidism E03.9 and Metabolic syndrome E88.[address] [address] Jan, Hypothyroidism, unspecified E03.9 [place] [id number] [place] [id number] [place] [address] Dec, Hypothyroidism, unspecified E03.9 [place] [address] [address] Dec, Hypothyroidism E03.9 [place] [address] [address] Nov, Laceration of left great toe w/o foreign body w/o damage to nail, initial encounter S91.112A [facility] [address] [address] Oct, Pain in left knee M25.562 an d Arthritis M19.90 [place] [address] [address] Oct, Hypothyroidism, unspecified E03.9 and Hyperlipidemia, unspecified hyperlipidemia type E78.5 [place] [address] [address] Oct, Gastroesophageal reflux dise ase without esophagitis K21.9 [place] [address] [address] 14 Oct, 2016 Metabolic syndrome E88.81 ; Personal history of pulmonary embolism Z86.711 ; Other specified hypothyroidism E03.8 and Hyperlipidemia, unspecified hyperlipidemia type E78.5 [place] [address] [address] 13 Oct, 2016 Personal history of pulmonar y embolism Z86.711 ; Dysuria R30.0 ; Metabolic syndrome E88.81 ; Other specified hypothyroidism E03.8 ; Hyperlipidemia, unspecified hyperlipidemia type E78.5 and Morbid obesity with BMI of 50.0-59.9, adult Z68.43 [place] [address] [address] September, [facility] [address] [address] September, Wrist pain, left M25.532 and Acute pain of left knee M25.562 [place] [address] [address] Jul, Dysuria R30.0 [place] [address] [address] Jul, Dysuria R30.0 [place] [address] [address] 16 Jul, 2016 Left lower quadrant pain R10 .32 [place] [address] [address] Jul, [place] [address] [address] Jul, Coronary artery disease I25. 10 ; Family history of diabetes mellitus Z83.3 ; Morbid obesity with BMI of 50.0-59.9, adult Z68.43 ; Metabolic syndrome E88.81 ; Personal history of pulmonary embolism Z86.711 ; Gastroesophageal reflux disease without esophagitis K21.9 ; Hypothyroidism, unspecified E03.9 ; Hyperlipidemia, unspecified hyperlipidemia type E78.5 and Left lower quadrant pain R10.32 [facility] [address] [address] Jul, [facility] [address] [address] Jul, Morbid obesity with BMI of 5 0.0-59.9, adult Z68.43 [facility] [address] [address] Jul, Generalized abdominal pain R 10.84 [facility] [place] [id number] [place] [address] Jun, Muscle strain of right upper back, initial encounter S29.012A [facility] [address] [address] May, Foreign body (FB) in soft ti ssue M79.5 [place] [address] [place] [id number] [place] [address] Mar, Hypothyroidism, unspecified E03.9 and Arthritis M19.90 [place] [address] [place] [id number] [address] [place] [address] 13 Feb, 2016 Coronary artery disease I25. 10 ; Morbid obesity with BMI of 50.0- 59.9, adult Z68.43 ; Metabolic syndrome E88.81 ; Gastroesophageal reflux disease without esophagitis K21.9 ; Hypothyroidism, unspecified E03.9 ; Personal history of pulmonary embolism Z86.711 and Hyperlipidemia, unspecified hyperlipidemia type E78.5 [place] [address] [place] [id number] [address] [place] [address] 10 Feb, 2016 [facility] [address] [place] [id number] [address] [place] [address] 12 Jan, 2016 Acute right-sided thoracic b ack pain M54.6 [place] [address] [place] [id number] [place] [address] Jan, Acute pain of left knee M25. 562 [place] [address] [place] [id number] [place] [address] 18 Dec, 2015 Dysuria R30.0 ; Metabolic sy ndrome E88.81 ; Acute pain of left knee M25.562 ; Acute cystitis with hematuria N30.01 and Acute left eye pain H57.12 [place] [address] [facility] [id number] [address] [place] [address] Dec, [place] [address] [place] [id number] [place] [address] Dec, [place] [address] [facility] [id number] [address] [place] [address] Dec, Hypothyroidism, unspecified E03.9 [place] [address] [place] [id number] [place] [address] Dec, [place] [id number] [facility] [id number] [address] [place] [address] Nov, Peripheral edema R60.9 and A cute pain of left knee M25.562 [facility] [place] [address] [address] [facility] [id number] [address] [place] [address] September, [place] [address] [address] [facility] [id number] [address] [place] [address] September, Metabolic syndrome E88.81 an d Allergy, subsequent encounter T78.40XD [facility] [place] [address] [address] [facility] [id number] [place] [address] September, Muscle strain T14.8 [place] [address] [facility] [id number] [address] [place] [address] Aug, Chest pressure R07.89 ; [place] bolic syndrome E88.81 ; Morbid obesity with BMI of 50.0-59.9, adult Z68.43 ; Esophageal reflux 530.81 and Shortness of breath R06.02 [place] [address] [facility] [id number] [address] [place] [address] Aug, [place] [address] [facility] [id number] [address] [place] [address] Aug, [place] [address] [facility] [id number] [address] [place] [address] Aug, Hypothyroidism, unspecified E03.9 [place] [address] [facility] [id number] [address] [place] [address] Aug, Routine health maintenance Z 00.00 [facility] [place] [address] [address] [facility] [id number] [address] [place] [address] Aug, [place] [address] [facility] [id number] [address] [place] [address] Jul, Routine health maintenance Z 00.00 ; Family history of diabetes mellitus Z83.3 ; Family history of cancer Z80.9 and Morbid obesity with BMI of 50.0-59.9, adult Z68.43 [facility] [address] [place] [id number] [place] [address] 28 Jul, 2016 Allergic rhinitis J30.9 and Postnasal drip R09.82 [place] [address] [place] [id number] [address] [place] [address] 18 Jul, 2015 Influenza J11.1 [facility] [address] [place] [address] 08 Jul, 2015 Dysuria R30.0 [place] [address] [address] Apr, [place] [address] [address] Mar, Acute upper respiratory infe ction, unspecified J06.9 and Hypothyroidism E03.9 [place] [address] [address] Mar, [place] [address] [address] Feb, Coronary artery disease I25. 10 [place] [address] [address] Feb, Left foot pain M79.672 [place] [address] [place] [id number] [place] [address] Jan, UTI (urinary tract infection ) 599.0 [place] [address] [place] [id number] [place] [address] Jan, Urinary tract infection, sit e not specified 599.0 [place] [address] [place] [id number] [place] [address] Jan, Urinary tract infection, sit e not specified 599.0 [place] [address] [place] [id number] [place] [address] Jan, [facility] [address] [place] [id number] [address] [place] [address] Dec, Headache 784.0 [facility] [address] [facility] [id number] [address] [place] [address] Dec, Urinary tract infection, sit e not specified 599.0 [facility] [address] [place] [id number] [address] [place] [address] Dec, Urinary tract infection, sit e not specified 599.0 [facility] [address] [place] [id number] [address] [place] [address] Dec, Urinary tract infection, sit e not specified 599.0 [facility] [address] [place] [id number] [address] [place] [address] Nov, Unspecified sleep apnea 780. 57 ; Encounter for long-term (current) use of anticoagulants V58.61 ; Routine general medical examination at health care facility V70.0 and Arthritis of both knees 716.96 [facility] [address] [place] [address] September, Cat bite of hand 882.0 and R ectal bleeding 569.3 [facility] [address] [place] [id number] [address] [place] [address] Aug, [facility] [address] [place] [id number] [place] [id number] Aug, [facility] [address] [place] [id number] [address] [place] [address] Jul, [facility] [address] [place] [id number] [address] [place] [address] Jul, [facility] [address] [place] [id number] [address] [place] [address] Jul, [facility] [address] [place] [id number] [place] [phone] Jul, [facility] [address] [id number] [address] [place] [address], [place] [id number] Jul, [facility] [address] [id number] [address] [place] [address], [place] [id number] Jul, [facility] [address] [id number] [address] [place] [address], [place] [id number] Jul, [facility] [address] [id number] [address] [place] [address], [place] [id number] Jul, [facility] [address] [id number] [address] [place] [address], [place] [id number] May, [facility] [address] [id number] [address] [place] [address], [place] [id number] May, [facility] [address] [id number] [address] [place] [address], [place] [id number] May, [facility] [address] [id number] [address] [place] [address], [place] [address] May, [facility] [address] [id number] [address] [place] [address], [place] [id number] May, [facility] [address] [id number] [address] [place] [address], [place] [address] May, [facility] [address] [id number] [address] [place] [address], [place] [address] May, [facility] [address] [id number] [address] [place] [address], [place] [id number] Mar, [facility] [address] [id number] [address] [place] [address], [place] [address] Mar, [facility] [address] [id number] [address] [place] [address], [place] [address] Jan, [facility] [address] [id number] [address] [place] [address], [place] [address] Jan, [facility] [address] [id number] [address] [place] [address], [place] [address] Jan, [facility] [address] [id number] [address] [place] [address], [place] [address] Jan, [facility] [address] [id number] [address] [place] [address], [place] [address] Jan, [facility] [address] [id number] [address] [place] [address], [place] [address] Jan, [facility] [address] [id number] [address] [place] [address], [place] [address] Dec, [facility] [address] [id number] [address] [place] [address], [place] [address] Dec, [facility] [address] [id number] [address] [place] [address], [place] [address] Dec, [facility] [address] [id number] [address] [place] [address], [place] [address] Dec, [facility] [address] [id number] [address] [place] [address], [place] [address] Dec, [facility] [address] [id number] [address] [place] [address], [place] [address] Dec, [facility] [address] [id number] [address] [place] [address], [place] [address] Dec, [facility] [address] [id number] [address] [place] [address], [place] [address] Dec, [facility] [address] [id number] [address] [place] [address], [place] [address] Dec, [facility] [address] [id number] [address] [place] [address], [place] [address] Dec, [facility] [address] [id number] [address] [place] [address], [place] [address] Nov, [facility] [address] [id number] [address] [place] [address], [place] [address] Nov, [facility] [address] [id number] [address] [place] [address], [place] [address] September, [facility] [address] [id number] [address] [place] [address], [place] [address] September, [facility] [address] [id number] [address] [place] [address], [place] [address] September, [facility] [address] [id number] [address] [place] [address], [place] [address] September, [facility] [address] [id number] [address] [place] [address], [place] [address] Aug, [facility] [address] [id number] [address] [place] [address], [place] [address] Aug, [facility] [address] [id number] [address] [place] [address], [place] [address] Aug, [facility] [address] [id number] [address] [place] [address], [place] [address] Aug, [facility] [address] [id number] [address] [place] [address], [place] [address] Aug, [facility] [address] [id number] [address] [place] [address], [place] [address] Aug, [facility] [address] [id number] [address] [place] [address], [place] [address] Aug, [facility] [address] [id number] [address] [place] [address], [place] [address] Aug, [facility] [address] [id number] [address] [place] [address], [place] [address] Aug, [facility] [address] [id number] [address] [place] [address], [place] [address] Aug, [facility] [address] [id number] [address] [place] [address], [place] [address] Aug, [facility] [address] [id number] [address] [place] [address], [place] [address] Aug, [facility] [address] [id number] [facility] [place] [address] 20 Jul, 2013 [facility] [address] [id number] [address] [place] [address], [place] [address] Jul, [facility] [address] [id number] [facility] [place] [address] Jul, [facility] [address] [id number] [address] [place] [address], [place] [address] Jul, [facility] [address] [id number] [address] [place] [address], [place] [address] 06 Jul, 2013 [facility] [address] [id number] [address] [place] [address], [place] [address] 06 Jul, 2013 [facility] [address] [id number] [address] [place] [address], [place] [address] 05 Jul, 2013 [facility] [address] [id number] [address] [place] [address], [place] [address] 05 Jul, 2013 [facility] [address] [id number] [address] [place] [address], [place] [address] Jul, [facility] [address] [id number] [address] [place] [address], [place] [address] Jul, [facility] [address] [id number] [address] [place] [address], [place] [address] 28 Jun, 2013 [facility] [address] [id number] [address] [place] [address], [place] [address] 28 Jun, 2013 [facility] [address] [id number] [address] [place] [address], [place] [address] 17 Jun, 2013 [facility] [address] [id number] [address] [place] [address], [place] [address] 17 Jun, 2013 [facility] [address] [id number] [address] [place] [address], [place] [address] 13 Jun, 2013 [facility] [address] [id number] [address] [place] [address], [place] [address] Jun, [facility] [address] [id number] [address] [place] [address], [place] [address] Jun, [facility] [address] [id number] [address] [place] [address], [place] [address] Jun, [facility] [address] [id number] [address] [place] [address], [place] [address] Jun, [facility] [address] [id number] [address] [place] [address], [place] [address] Jun, [facility] [address] [id number] [address] [place] [address], [place] [address] Jun, [facility] [address] [id number] [address] [place] [address], [place] [address] Jun, [facility] [address] [id number] [address] [place] [address], [place] [address] May, [facility] [address] [id number] [address] [place] [address], [place] [address] May, [facility] [address] [id number] [address] [place] [address], [place] [address] May, [facility] [address] [id number] [address] [place] [address], [place] [address] May, [facility] [address] [id number] [address] [place] [address], [place] [address] May, [facility] [address] [id number] [address] [place] [address], [place] [address] May, [facility] [address] [id number] [address] [place] [address], [place] [address] May, [facility] [address] [id number] [address] [place] [address], [place] [address] May, [facility] [address] [id number] [address] [place] [address], [place] [address] May, [facility] [address] [id number] [address] [place] [address], [place] [address] May, [facility] [address] [id number] [address] [place] [address], [place] [address] May, [facility] [address] [id number] [address] [place] [address], [place] [address] May, [facility] [address] [id number] [address] [place] [address], [place] [address] May, [facility] [address] [id number] [address] [place] [address], [place] [address] May, [facility] [address] [id number] [address] [place] [address], [place] [address] May, [facility] [address] [id number] [address] [place] [address], [place] [address] Apr, [facility] [address] [id number] [address] [place] [address], [place] [address] Apr, [facility] [address] [id number] [address] [place] [address], [place] [address] Apr, [facility] [address] [id number] [address] [place] [address], [place] [address] Apr, [facility] [address] [id number] [address] [place] [address], [place] [address] Mar, [facility] [address] [id number] [address] [place] [address], [place] [address] Mar, [facility] [address] [id number] [address] [place] [address], [place] [address] Mar, [facility] [address] [id number] [address] [place] [address], [place] [address] Mar, [facility] [address] [id number] [address] [place] [address], [place] [address] Mar, [facility] [address] [id number] [address] [place] [address], [place] [address] Mar, [facility] [address] [id number] [address] [place] [address], [place] [address] Mar, [facility] [address] [id number] [address] [place] [address], [place] [address] Mar, [facility] [address] [id number] [address] [place] [address], [place] [address] Mar, [facility] [address] [id number] [address] [place] [address], [place] [address] Mar, [facility] [address] [id number] [address] [place] [address], [place] [address] Mar, [facility] [address] [id number] [address] [place] [address], [place] [address] Mar, [facility] [address] [id number] [address] [place] [address], [place] [address] Feb, [facility] [address] [id number] [address] [place] [address], [place] [address] 18 Jan, 2013 [facility] [address] [id number] [address] [place] [address], [place] [address] 17 Jan, 2013 [facility] [address] [id number] [address] [place] [address], [place] [address] 06 Jan, 2013 [facility] [address] [id number] [address] [place] [address], [place] [address] 04 Jan, 2013 [facility] [address] [id number] [address] [place] [address] Jan, [facility] [address] [id number] [address] [place] [address], [place] [address] Dec, [facility] [address] [id number] [address] [place] [address], [place] [address] Dec, [facility] [address] [id number] [address] [place] [address], [place] [address] Dec, [facility] [address] [id number] [facility] [place] [address] Dec, [facility] [address] [id number] [address] [place] [address], [place] [address] Dec, [facility] [address] [id number] [address] [place] [address], [place] [address] Dec, [facility] [address] [id number] [address] [place] [address], [place] [address] Dec, [facility] [address] [id number] [address] [place] [address], [place] [address] Dec, [facility] [address] [id number] [address] [place] [address], [place] [address] Nov, [facility] [address] [id number] [address] [place] [address], [place] [address] Nov, [facility] [address] [id number] [address] [place] [address], [place] [address] Nov, [facility] [address] [id number] [address] [place] [address], [place] [address] Nov, [facility] [address] [id number] [address] [place] [address], [place] [address] Nov, [facility] [address] [id number] [address] [place] [address], [place] [address] Nov, [facility] [address] [id number] [address] [place] [address], [place] [address] Oct, [facility] [address] [id number] [place] [id number] Oct, [facility] [place] [address] [id number] [place] [id number] Oct, [facility] [place] [address] [id number] [place] [id number] Oct, [facility] [place] [address] [id number] [place] [id number] Oct, [facility] [address] [id number] [address] [place] [address], [place] [address] 13 Oct, 2012 [facility] [address] [id number] [address] [place] [address], [place] [address] Oct, [facility] [address] [id number] [address] [place] [address], [place] [address] Oct, [facility] [address] [id number] [address] [place] [address], [place] [address] Oct, [facility] [address] [id number] [address] [place] [address], [place] [address] Oct, [facility] [address] [id number] [address] [place] [address], [place] [address] 05 Oct, 2012 [facility] [address] [id number] [address] [place] [address], [place] [address] September, [facility] [address] [id number] [address] [place] [address], [place] [address] Aug, [facility] [address] [id number] [address] [place] [address], [place] [address] Aug, [facility] [address] [id number] [address] [place] [address], [place] [address] Aug, [facility] [address] [id number] [address] [place] [address], [place] [address] Aug, [facility] [address] [id number] [address] [place] [address], [place] [address] 24 Jul, 2012 [facility] [address] [id number] [address] [place] [address], [place] [address] Jul, [facility] [address] [id number] [address] [place] [address], [place] [address] Jul, [facility] [address] [id number] [address] [place] [address], [place] [address] 05 Jul, 2012 [facility] [address] [id number] [address] [place] [address], [place] [address] Jul, [facility] [address] [id number] [address] [place] [address], [place] [address] 19 Jun, 2012 [facility] [address] [id number] [address] [place] [address], [place] [address] 13 Jun, 2012 [facility] [address] [id number] [address] [place] [address], [place] [address] 11 Jun, 2012 [facility] [address] [id number] [address] [place] [address], [place] [address] May, [facility] [address] [id number] [address] [place] [address], [place] [address] 24 May, 2012 [facility] [address] [id number] [address] [place] [address], [place] [address] May, [facility] [address] [id number] [address] [place] [address], [place] [address] May, [facility] [address] [id number] [address] [place] [address], [place] [address] May, [facility] [address] [id number] [address] [place] [address], [place] [address] May, [facility] [address] [id number] [address] [place] [address], [place] [address] 18 Apr, 2012 [facility] [address] [id number] [address] [place] [address], [place] [address] 18 Apr, 2012 [facility] [address] [id number] [address] [place] [address], [place] [address] 13 Apr, 2012 [facility] [address] [id number] [address] [place] [address], [place] [address] 13 Apr, 2012 [facility] [address] [id number] [address] [place] [address], [place] [address] 13 Apr, 2012 [facility] [address] [id number] [address] [place] [address], [place] [address] 11 Apr, 2012 [facility] [address] [id number] [address] [place] [address] Apr, [facility] [address] [id number] [address] [place] [address], [place] [address] Mar, [facility] [address] [id number] [address] [place] [address], [place] [address] Mar, [facility] [address] [id number] [address] [place] [address], [place] [address] Mar, [facility] [address] [id number] [address] [place] [address], [place] [address] Mar, [facility] [address] [id number] [address] [place] [address], [place] [address] Jan, [facility] [address] [id number] [address] [place] [address], [place] [address] Jan, [facility] [address] [id number] [address] [place] [address], [place] [address] Jan, [facility] [address] [id number] [address] [place] [address], [place] [address] Jan, [facility] [address] [id number] [place] [id number] Dec, [facility] [address] [id number] [address] [place] [address] Dec, [facility] [address] [id number] [place] [id number] Dec, [facility] [address] [id number] [address] [place] [address] Dec, [facility] [address] [id number] [address] [place] [address], [place] [address] Dec, [facility] [address] [id number] [address] [place] [address], [place] [address] Dec, [facility] [address] [id number] [address] [place] [address], [place] [address] Nov, [facility] [address] [id number] [address] [place] [address] Nov, [facility] [address] [facility] [id number] [address] [place] [address] Nov, IMMUNIZATIONS No Known Immunizations SOCIAL HISTORY [...] asthma(493.90) Medical History Near syncope Medical History group home current use of anticoagulant Medical History Renal [...] Stent placed 08/19/2017 Hospitalization History Syncope- [facility] 12/2017 Hospitalization History heart cath ( 06/23/18-06/25/2018) Hospitalization History heart problem, overnight stay 9
--- OUTSIDE RECORDS SUMMARY | 2019-11-03 19:19 | XMS REPORT ---
Author Author Anca Lucero Doctor Organization [facility] Address Unknown Phone Unavailable Care Team Providers Care Dietitian Therapeutic Name Role Phone Migration, Doctor Unavailable Unavailable PROBLEMS Type Condition ICD9-CM Code QRQ69-VS Code Onset Dates Condition S tatus SNOMED Code Problem Esophageal reflux K21.9 Active 24 6146760 Problem Dyslipidemia E78.5 12 Oct, 2017 Active 3709 98827 Problem Unspecified hypothyroidism E03.9 Act hernesto 17569177 Problem Generalized anxiety disorder F41.1 Apr, 200 8 Active 80278043 Problem Shortness of breath R06.02 Apr, Active 419025649 Problem Pulmonary embolus I26.99 13 Oct, 2011 Active 88585651 Problem Nonintractable migraine G43.009 08 Oct, 2015 Act hernesto 006691674 Problem Pre-diabetes R73.03 Active 4854775 02 Problem Morbid obesity with BMI of 50.0-59.9, adult Z68.43 Active 551878001 Problem Hypothyroidism E03.9 Active 31080 008 Problem Morbid obesity E66.01 Active 06566 6002 Problem Unspecified sleep apnea G47.30 Active 83606308 Problem Personal history of pulmonary embolism Z86.711 Active 584393736 Problem Osteoarthritis of right knee M17.11 13 May, 201 0 Active 975500267 Problem Renal stones N20.0 Active 0960483 7 Problem Coronary artery disease I25.10 Active 87978446 Problem Hyperlipidemia LDL goal <70 E78.5 Ac tive 45626265 Problem Migraine with aura and without status migrainosu s, not intractable G43.109 Active 2084479 ALLERGIES No Information ENCOUNTERS Encounter Location Date Diagnosis [facility] [address] [facility] [id number] [address] [place] [address] 15 Sep, 2019 [facility] [address] [facility] [id number] [address] [place] [address] 14 Sep, 2019 [facility] [address] [facility] [id number] [address] [place] [address] September, [facility] [address] [facility] [id number] [address] [place] [address] Aug, [facility] [address] [facility] [id number] [address] [place] [address] Aug, History of recurrent UTIs Z8 7.440 and Personal history of pulmonary embolism Z86.711 [facility] [address] [id number] [address] [place] [address] Jul, History of recurrent UTIs Z8 7.440 [place] [address] [address] [facility] [id number] [address] [place] [address] Jun, Personal history of pulmonar y embolism Z86.711 [place] [address] [address] [facility] [id number] [address] [place] [address] Jun, Personal history of pulmonar y embolism Z86.711 [place] [address] [address] [facility] [id number] [address] [place] [address] May, [facility] [address] [id number] [address] May, 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 and Dizziness R42 [facility] IN [facility] [address] [facility] [id number] [address] [place] [address] Apr, Non-recurrent acute suppurat hernesto otitis media of both ears without spontaneous rupture of tympanic membranes H66.003 [place] [address] [address] [facility] [id number] [address] [place] [address] Feb, Pre-diabetes R73.03 and Hype rlipidemia LDL goal <70 E78.5 [place] [address] [address] [facility] [id number] [address] [place] [address] Feb, [facility] [address] [facility] [id number] [address] [place] [address] Feb, [place] [address] [address] [facility] [id number] [address] [place] [address] 30 Jan, 2019 [facility] [address] [facility] [id number] [address] [place] [address] Jan, [facility] [address] [facility] [id number] [address] [place] [address] 18 Jan, 2019 Encounter for Medicare annua l wellness exam Z00.00 ; Hyperlipidemia LDL goal <70 E78.5 ; Coronary artery disease I25.10 ; Hypothyroidism E03.9 ; Osteoarthritis of right knee M17.11 ; Morbid obesity with BMI of 50.0-59.9, adult Z68.43 and Esophageal reflux K21.9 [facility] [address] [facility] [id number] [address] [place] [phone] 13 Jan, 2019 Dysuria R30.0 and Hematuria, unspecified type R31.9 [place] [address] [address] [facility] [id number] [address] [place] [address] Jan, Hematuria, unspecified type R31.9 [facility] [address] [facility] [id number] [address] [place] [address] Dec, Hematuria, unspecified type R31.9 [facility] [address] [facility] [id number] [address] [place] [address] Nov, Hematuria, unspecified type R31.[id number] [place] [address] Nov, Other microscopic hematuria R31.29 [facility] [address] [facility] [id number] [address] [place] [address] Nov, Vaginal gena B37.3 ; Othe r microscopic hematuria R31.29 and Morbid obesity E66.01 [facility] [address] [facility] [id number] [address] [place] [address] Nov, [facility] [address] [facility] [id number] [address] [place] [address] Nov, [facility] [address] [address] Nov, UTI symptoms R39.9 and Morbi d obesity E66.01 [place] [address] [address] Nov, [place] [address] [address] September, [place] [address] [address] September, [place] [address] [address] Aug, Right foot pain M79.671 and Morbid obesity E66.01 [place] [address] [address] Jul, Right foot pain M79.671 and Morbid obesity E66.01 [facility] [place] [address] [address] Jul, Injury of right foot, initia l encounter S99.921A and Morbid obesity E66.01 [place] [address] [address] Jul, Recurrent syncope R55 and Mo rbid obesity E66.01 [place] [address] [address] Jul, [place] [address] [address] Jun, Hematuria, unspecified type R31.9 and BMI 50.0-59.9, adult Z68.43 [place] [address] [address] Jun, [address] 340[id number] [place] [address] 04 Jun, 2018 [facility] current use of ant icoagulant Z79.01 [facility] [address] [place] [id number] [place] [address] May, Ankle pain, right M25.571 an d BMI 50.0-59.9, adult Z68.43 [facility] [address] [address] May, [facility] [address] [address] May, [facility] [address] [address] Apr, [facility] [address] [address] Apr, [facility] [address] [address] Apr, [facility] [address] [address] Apr, BMI 50.0-59.9, adult Z68.43 and Weakness R53.1 [facility] [address] [address] Apr, [facility] IN [facility] [address] [address] Apr, Dysuria R30.0 ; Hematuria R3 1.9 ; Renal lithiasis N20.0 and BMI 50.0-59.9, adult Z68.43 [facility] [address] [address] Apr, [place] [address] [address] Apr, [place] [address] [address] Apr, Hypothyroidism E03.9 [facility] [address] [place] [id number] [place] [address] Apr, Burning with urination R30.0 ; Type 2 diabetes mellitus with diabetic neuropathic arthropathy, 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 ; Acute bilateral low back pain without sciatica M54.5 and BMI 50.0- 59.9, adult Z68.43 [facility] [address] [place] [id number] [place] [address] 02 Mar, 2018 Hypothyroidism E03.9 [facility] [address] [address] Feb, [facility] IN [facility] [address] [address] Jan, [place] [address] [address] Jan, Acute non-recurrent maxillar y sinusitis J01.00 and BMI 50.0-59.9, adult Z68.43 [facility] IN [facility] [address] [address] Jan, Congestion of upper respirat ory tract J98.8 and BMI 50.0-59.9, adult Z68.43 [place] [address] [address] Dec, Type 2 diabetes mellitus wit h diabetic neuropathic arthropathy, 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 ; Morbid obesity with BMI of 50.0-59.9, adult Z68.43 ; Hypothyroidism E03.9 ; Coronary artery disease I25.10 ; Hyperlipidemia LDL goal <70 E78.5 ; Right lower quadrant abdominal pain R10.31 and Acute cystitis with hematuria N30.01 [facility] IN [facility] [address] [address] Dec, Migraine with aura and witho ut status migrainosus, not intractable G43.109 ; Dehydration symptoms R63.8 and BMI 50.0-59.9, adult Z68.43 [facility] [address] [address] Oct, [facility] [address] [place] [address] Oct, [place] [address] [address] Oct, [facility] [address] [place] [id number] [place] [address] September, [place] [address] [address] September, Type 2 diabetes mellitus wit h diabetic neuropathic arthropathy, 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 ; Hyperlipidemia, unspecified hyperlipidemia type E78.5 ; Personal history of pulmonary embolism Z86.711 ; Coronary artery disease I25.10 and Hypothyroidism E03.9 [place] [address] [address] September, [place] [address] [address] Aug, Type 2 diabetes mellitus wit h [...] without aura and with status migrainosus G43.011 [facility] [address] [place] [address] Aug, [place] [address] [address] [place] [address] Aug, [place] [address] [place] [id number] [place] [address] Jul, Renal stones N20.0 [facility] [address] [place] [id number] [address] [place] [address] Jun, Back pain M54.9 ; Kidney sto radha N20.0 and BMI 50.0-59.9, adult Z68.43 [place] [address] [address] Jun, [place] [address] [address] Apr, [place] [address] [address] Apr, [place] [address] [address] Apr, Right foot pain M79.671 ; Ac [place] gout involving toe of right foot, 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 and Arthritis M19.90 [place] [address] [address] 06 Apr, 2017 Gastroesophageal reflux dise ase without esophagitis K21.9 [place] [address] [address] 16 Mar, 2017 Hypothyroidism, unspecified E03.9 [place] [address] [address] 11 Feb, 2017 [place] [address] [address] 25 Jan, 2017 Cervicalgia of occipito-atla nto-axial region M54.2 and Persistent headaches R51 [place] [address] [address] 20 Jan, 2017 [place] [address] [address] 12 Jan, 2017 Intractable migraine without aura and with status migrainosus G43.011 ; Cervical spine pain M54.2 ; Hyperlipidemia, unspecified hyperlipidemia type E78.5 ; Hypothyroidism E03.9 and Metabolic syndrome E88.[address] [address] Jan, Hypothyroidism, unspecified E03.9 [place] [address] [place] [id number] [place] [address] Dec, Hypothyroidism, unspecified E03.9 [place] [address] [address] Dec, Hypothyroidism E03.9 [place] [address] [address] Nov, Laceration of left great toe w/o foreign body w/o damage to nail, initial encounter S91.112A [facility] [address] [address] Oct, Pain in left knee M25.562 an d Arthritis M19.90 [place] [address] [address] Oct, Hypothyroidism, unspecified E03.9 and Hyperlipidemia, unspecified hyperlipidemia type E78.5 [place] [address] [address] Oct, Gastroesophageal reflux dise ase without esophagitis K21.9 [place] [address] [address] 14 Oct, 2016 Metabolic syndrome E88.81 ; Personal history of pulmonary embolism Z86.711 ; Other specified hypothyroidism E03.8 and Hyperlipidemia, unspecified hyperlipidemia type E78.5 [place] [address] [address] 13 Oct, 2016 Personal history of pulmonar y embolism Z86.711 ; Dysuria R30.0 ; Metabolic syndrome E88.81 ; Other specified hypothyroidism E03.8 ; Hyperlipidemia, unspecified hyperlipidemia type E78.5 and Morbid obesity with BMI of 50.0-59.9, adult Z68.43 [place] [address] [address] September, [facility] [address] [address] September, Wrist pain, left M25.532 and Acute pain of left knee M25.562 [place] [address] [address] Jul, Dysuria R30.0 [place] [address] [address] Jul, Dysuria R30.0 [place] [address] [address] 16 Jul, 2016 Left lower quadrant pain R10 .32 [place] [address] [address] Jul, [place] [address] [address] Jul, Coronary artery disease I25. 10 ; Family history of diabetes mellitus Z83.3 ; Morbid obesity with BMI of 50.0-59.9, adult Z68.43 ; Metabolic syndrome E88.81 ; Personal history of pulmonary embolism Z86.711 ; Gastroesophageal reflux disease without esophagitis K21.9 ; Hypothyroidism, unspecified E03.9 ; Hyperlipidemia, unspecified hyperlipidemia type E78.5 and Left lower quadrant pain R10.32 [facility] [address] [address] Jul, [facility] [address] [address] Jul, Morbid obesity with BMI of 5 0.0-59.9, adult Z68.43 [facility] [address] [address] Jul, Generalized abdominal pain R 10.84 [facility] [place] [id number] [place] [address] Jun, Muscle strain of right upper back, initial encounter S29.012A [facility] [address] [address] May, Foreign body (FB) in soft ti ssue M79.5 [place] [address] [address] [place] [id number] [place] [address] Mar, Hypothyroidism, unspecified E03.9 and Arthritis M19.90 [place] [address] [address] [place] [id number] [address] [place] [address] 13 Feb, 2016 Coronary artery disease I25. 10 ; Morbid obesity with BMI of 50.0- 59.9, adult Z68.43 ; Metabolic syndrome E88.81 ; Gastroesophageal reflux disease without esophagitis K21.9 ; Hypothyroidism, unspecified E03.9 ; Personal history of pulmonary embolism Z86.711 and Hyperlipidemia, unspecified hyperlipidemia type E78.5 [place] [address] [address] [place] [id number] [place] [address] 10 Feb, 2016 [facility] [address] [place] [id number] [place] [address] 12 Jan, 2016 Acute right-sided thoracic b ack pain M54.6 [place] [address] [address] [place] [id number] [place] [address] Jan, Acute pain of left knee M25. 562 [place] [address] [place] [id number] [place] [address] 18 Dec, 2015 Dysuria R30.0 ; Metabolic sy ndrome E88.81 ; Acute pain of left knee M25.562 ; Acute cystitis with hematuria N30.01 and Acute left eye pain H57.12 [place] [address] [address] [facility] [id number] [address] [place] [address] Dec, [place] [address] [place] [id number] [place] [address] Dec, [place] [address] [facility] [id number] [address] [place] [address] Dec, Hypothyroidism, unspecified E03.9 [place] [address] [place] [id number] [place] [address] Dec, [place] [address] [facility] [id number] [address] [place] [address] Nov, Peripheral edema R60.9 and A cute pain of left knee M25.562 [facility] [place] [address] [address] [facility] [id number] [address] [place] [address] September, [place] [address] [address] [facility] [id number] [address] [place] [address] September, Metabolic syndrome E88.81 an d Allergy, subsequent encounter T78.40XD [facility] [place] [address] [address] [facility] [id number] [place] [address] September, Muscle strain T14.8 [place] [address] [facility] [id number] [address] [place] [address] Aug, Chest pressure R07.89 ; [place] bolic syndrome E88.81 ; Morbid obesity with BMI of 50.0-59.9, adult Z68.43 ; Esophageal reflux 530.81 and Shortness of breath R06.02 [place] [address] [address] [facility] [id number] [address] [place] [address] Aug, [place] [address] [facility] [id number] [address] [place] [address] Aug, [place] [address] [facility] [id number] [address] [place] [address] Aug, Hypothyroidism, unspecified E03.9 [place] [address] [address] [facility] [id number] [address] [place] [address] Aug, Routine health maintenance Z 00.00 [facility] [place] [address] [address] [facility] [id number] [address] [place] [address] Aug, [place] [address] [address] [facility] [id number] [address] [place] [address] Jul, Routine health maintenance Z 00.00 ; Family history of diabetes mellitus Z83.3 ; Family history of cancer Z80.9 and Morbid obesity with BMI of 50.0-59.9, adult Z68.43 [facility] [address] [place] [id number] [place] [address] 28 Jul, 2016 Allergic rhinitis J30.9 and Postnasal drip R09.82 [place] [address] [address] [place] [id number] [address] [place] [address] 18 Jul, 2015 Influenza J11.1 [facility] [address] [place] [address] 08 Jul, 2015 Dysuria R30.0 [place] [address] [address] Apr, [place] [address] [address] Mar, Acute upper respiratory infe ction, unspecified J06.9 and Hypothyroidism E03.9 [place] [address] [address] Mar, [place] [address] [address] Feb, Coronary artery disease I25. 10 [place] [address] [address] Feb, Left foot pain M79.672 [place] [address] [address] [place] [id number] [place] [address] Jan, UTI (urinary tract infection ) 599.0 [place] [address] [address] [place] [id number] [place] [address] Jan, Urinary tract infection, sit e not specified 599.0 [place] [address] [place] [id number] [place] [address] Jan, Urinary tract infection, sit e not specified 599.0 [place] [address] [place] [id number] [place] [address] Jan, [facility] [address] [place] [id number] [address] [place] [address] Dec, Headache 784.0 [facility] [address] [facility] [id number] [address] [place] [address] Dec, Urinary tract infection, sit e not specified 599.0 [facility] [address] [place] [id number] [address] [place] [address] Dec, Urinary tract infection, sit e not specified 599.0 [facility] [address] [place] [id number] [place] [address] Dec, Urinary tract infection, sit e not specified 599.0 [facility] [address] [place] [id number] [address] [place] [address] Nov, Unspecified sleep apnea 780. 57 ; Encounter for long-term (current) use of anticoagulants V58.61 ; Routine general medical examination at health care facility V70.0 and Arthritis of both knees 716.96 [facility] [address] [place] [address] September, Cat bite of hand 882.0 and R ectal bleeding 569.3 [facility] [address] [place] [id number] [address] [place] [address] Aug, [facility] [address] [place] [id number] [place] [id number] Aug, [facility] [address] [id number] [address] [place] [id number] Jul, [facility] [address] [id number] [address] [place] [id number] Jul, [facility] [address] [id number] [address] [place] [id number] Jul, [facility] [address] [id number] [address] [place] [id number] Jul, [facility] [address] [id number] [address] [place] [address], [place] [address] Jul, [facility] [address] [id number] [address] [place] [address], [place] [address] Jul, [facility] [address] [id number] [address] [place] [address], [place] [address] Jul, [facility] [address] [id number] [address] [place] [address], [place] [address] Jul, [facility] [address] [id number] [address] [place] [address], [place] [address] May, [facility] [address] [id number] [address] [place] [address], [place] [address] May, [facility] [address] [id number] [address] [place] [address], [place] [address] May, [facility] [address] [id number] [address] [place] [address], [place] [address] May, [facility] [address] [id number] [address] [place] [address], [place] [address] May, [facility] [address] [id number] [address] [place] [address], [place] [address] May, [facility] [facility] [address] [id number] [address] [place] [address], [place] [address] May, [facility] [address] [id number] [address] [place] [address], [place] [address] Mar, [facility] [address] [id number] [address] [place] [address], [place] [address] Mar, [facility] [address] [id number] [address] [place] [address], [place] [address] Jan, [facility] [address] [id number] [address] [place] [address], [place] [address] Jan, [facility] [address] [id number] [address] [place] [address], [place] [address] Jan, [facility] [address] [id number] [address] [place] [address], [place] [address] Jan, [facility] [address] [id number] [address] [place] [address], [place] [address] Jan, [facility] [address] [id number] [address] [place] [address], [place] [address] Jan, [facility] [address] [id number] [address] [place] [address], [place] [address] Dec, [facility] [address] [id number] [address] [place] [address], [place] [address] Dec, [facility] [address] [id number] [address] [place] [address], [place] [address] Dec, [facility] [address] [id number] [address] [place] [address], [place] [address] Dec, [facility] [address] [id number] [address] [place] [address], [place] [address] Dec, [facility] [address] [id number] [address] [place] [address], [place] [address] Dec, [facility] [address] [id number] [address] [place] [address], [place] [address] Dec, [facility] [address] [id number] [address] [place] [address], [place] [address] Dec, [facility] [address] [id number] [address] [place] [address], [place] [address] Dec, [facility] [address] [id number] [address] [place] [address], [place] [address] Dec, [facility] [address] [id number] [address] [place] [address], [place] [address] Nov, [facility] [address] [id number] [address] [place] [address], [place] [address] Nov, [facility] [address] [id number] [address] [place] [address], [place] [address] September, [facility] [address] [id number] [address] [place] [address], [place] [address] September, [facility] [address] [id number] [address] [place] [address], [place] [address] September, [facility] [address] [id number] [address] [place] [address], [place] [address] September, [facility] [address] [id number] [address] [place] [address], [place] [address] Aug, [facility] [address] [id number] [address] [place] [address], [place] [address] Aug, [facility] [address] [id number] [address] [place] [address], [place] [address] Aug, [facility] [address] [id number] [address] [place] [address], [place] [address] Aug, [facility] [address] [id number] [address] [place] [address], [place] [address] Aug, [facility] [address] [id number] [address] [place] [address], [place] [address] Aug, [facility] [address] [id number] [address] [place] [address], [place] [address] Aug, [facility] [address] [id number] [address] [place] [address], [place] [address] Aug, [facility] [address] [id number] [address] [place] [address], [place] [address] Aug, [facility] [address] [id number] [address] [place] [address], [place] [address] Aug, [facility] [address] [id number] [address] [place] [address], [place] [address] Aug, [facility] [address] [id number] [address] [place] [address], [place] [address] Aug, [facility] [address] [id number] [facility] [place] [address] 20 Jul, 2013 [facility] [address] [id number] [address] [place] [address], [place] [address] Jul, [facility] [address] [id number] [facility] [place] [address] Jul, [facility] [address] [id number] [address] [place] [address], [place] [address] Jul, [facility] [address] [id number] [address] [place] [address], [place] [address] 06 Jul, 2013 [facility] [address] [id number] [address] [place] [address], [place] [address] 06 Jul, 2013 [facility] [address] [id number] [address] [place] [address], [place] [address] 05 Jul, 2013 [facility] [address] [id number] [address] [place] [address], [place] [address] 05 Jul, 2013 [facility] [address] [id number] [address] [place] [address], [place] [address] Jul, [facility] [address] [id number] [address] [place] [address], [place] [address] Jul, [facility] [address] [id number] [address] [place] [address], [place] [address] 28 Jun, 2013 [facility] [address] [id number] [address] [place] [address], [place] [address] 28 Jun, 2013 [facility] [address] [id number] [address] [place] [address], [place] [address] 17 Jun, 2013 [facility] [address] [id number] [address] [place] [address], [place] [address] 17 Jun, 2013 [facility] [address] [id number] [address] [place] [address], [place] [address] 13 Jun, 2013 [facility] [address] [id number] [address] [place] [address], [place] [address] Jun, [facility] [address] [id number] [address] [place] [address], [place] [address] Jun, [facility] [address] [id number] [address] [place] [address], [place] [address] Jun, [facility] [address] [id number] [address] [place] [address], [place] [address] Jun, [facility] [address] [id number] [address] [place] [address], [place] [address] Jun, [facility] [address] [id number] [address] [place] [address], [place] [address] Jun, [facility] [address] [id number] [address] [place] [address], [place] [address] Jun, [facility] [address] [id number] [address] [place] [address], [place] [address] May, [facility] [address] [id number] [address] [place] [address], [place] [address] May, [facility] [address] [id number] [address] [place] [address], [place] [address] May, [facility] [address] [id number] [address] [place] [address], [place] [address] May, [facility] [address] [id number] [address] [place] [address], [place] [address] May, [facility] [address] [id number] [address] [place] [address], [place] [address] May, [facility] [address] [id number] [address] [place] [address], [place] [address] May, [facility] [address] [id number] [address] [place] [address], [place] [address] May, [facility] [address] [id number] [address] [place] [address], [place] [address] May, [facility] [address] [id number] [address] [place] [address], [place] [address] May, [facility] [address] [id number] [address] [place] [address], [place] [address] May, [facility] [address] [id number] [address] [place] [address], [place] [address] May, [facility] [address] [id number] [address] [place] [address], [place] [address] May, [facility] [address] [id number] [address] [place] [address], [place] [address] May, [facility] [address] [id number] [address] [place] [address], [place] [address] May, [facility] [address] [id number] [address] [place] [address], [place] [address] Apr, [facility] [address] [id number] [address] [place] [address], [place] [address] Apr, [facility] [address] [id number] [address] [place] [address], [place] [address] Apr, [facility] [address] [id number] [address] [place] [address], [place] [address] Apr, [facility] [address] [id number] [address] [place] [address], [place] [address] Mar, [facility] [address] [id number] [address] [place] [address], [place] [address] Mar, [facility] [address] [id number] [address] [place] [address], [place] [address] Mar, [facility] [address] [id number] [address] [place] [address], [place] [address] Mar, [facility] [address] [id number] [address] [place] [address], [place] [address] Mar, [facility] [address] [id number] [address] [place] [address], [place] [address] Mar, [facility] [address] [id number] [address] [place] [address], [place] [address] Mar, [facility] [address] [id number] [address] [place] [address], [place] [address] Mar, [facility] [address] [id number] [address] [place] [address], [place] [address] Mar, [facility] [address] [id number] [address] [place] [address], [place] [address] Mar, [facility] [address] [id number] [address] [place] [address], [place] [address] Mar, [facility] [address] [id number] [address] [place] [address], [place] [address] Mar, [facility] [address] [id number] [address] [place] [address], [place] [address] Feb, [facility] [address] [id number] [address] [place] [address], [place] [address] 18 Jan, 2013 [facility] [address] [id number] [address] [place] [address], [place] [address] 17 Jan, 2013 [facility] [address] [id number] [address] [place] [address], [place] [address] 06 Jan, 2013 [facility] [address] [id number] [address] [place] [address], [place] [address] 04 Jan, 2013 [facility] [address] [id number] [address] [place] [address] Jan, [facility] [address] [id number] [address] [place] [address], [place] [address] Dec, [facility] [address] [id number] [address] [place] [address], [place] [address] Dec, [facility] [address] [id number] [address] [place] [address], [place] [address] Dec, [facility] [address] [id number] [facility] [place] [address] Dec, [facility] [address] [id number] [address] [place] [address], [place] [address] Dec, [facility] [address] [id number] [address] [place] [address], [place] [address] Dec, [facility] [address] [id number] [address] [place] [address], [place] [address] Dec, [facility] [address] [id number] [address] [place] [address], [place] [address] Dec, [facility] [address] [id number] [address] [place] [address], [place] [address] Nov, [facility] [address] [id number] [address] [place] [address], [place] [address] Nov, [facility] [address] [id number] [address] [place] [address], [place] [address] Nov, [facility] [address] [id number] [address] [place] [address], [place] [address] Nov, [facility] [address] [id number] [address] [place] [address], [place] [address] Nov, [facility] [address] [id number] [address] [place] [address], [place] [address] Nov, [facility] [address] [id number] [address] [place] [address], [place] [address] Oct, [facility] [address] [id number] [place] [id number] Oct, [facility] [place] [address] [id number] [place] [id number] Oct, [facility] [place] [address] [id number] [place] [id number] Oct, [facility] [place] [address] [id number] [place] [id number] Oct, [facility] [address] [id number] [address] [place] [address], [place] [address] 13 Oct, 2012 [facility] [address] [id number] [address] [place] [address], [place] [address] Oct, [facility] [address] [id number] [address] [place] [address], [place] [address] Oct, [facility] [address] [id number] [address] [place] [address], [place] [address] Oct, [facility] [address] [id number] [address] [place] [address], [place] [address] Oct, [facility] [address] [id number] [address] [place] [address], [place] [address] 05 Oct, 2012 [facility] [address] [id number] [address] [place] [address], [place] [address] September, [facility] [address] [id number] [address] [place] [address], [place] [address] Aug, [facility] [address] [id number] [address] [place] [address], [place] [address] Aug, [facility] [address] [id number] [address] [place] [address], [place] [address] Aug, [facility] [address] [id number] [address] [place] [address], [place] [address] Aug, [facility] [address] [id number] [address] [place] [address], [place] [address] 24 Jul, 2012 [facility] [address] [id number] [address] [place] [address], [place] [address] Jul, [facility] [address] [id number] [address] [place] [address], [place] [address] Jul, [facility] [address] [id number] [address] [place] [address], [place] [address] 05 Jul, 2012 [facility] [address] [id number] [address] [place] [address], [place] [address] Jul, [facility] [address] [id number] [address] [place] [address], [place] [address] 19 Jun, 2012 [facility] [address] [id number] [address] [place] [address], [place] [address] 13 Jun, 2012 [facility] [address] [id number] [address] [place] [address], [place] [address] 11 Jun, 2012 [facility] [address] [id number] [address] [place] [address], [place] [address] May, [facility] [address] [id number] [address] [place] [address], [place] [address] 24 May, 2012 [facility] [address] [id number] [address] [place] [address], [place] [address] May, [facility] [address] [id number] [address] [place] [address], [place] [address] May, [facility] [address] [id number] [address] [place] [address], [place] [address] May, [facility] [address] [id number] [address] [place] [address], [place] [address] May, [facility] [address] [id number] [address] [place] [address], [place] [address] 18 Apr, 2012 [facility] [address] [id number] [address] [place] [address], [place] [address] 18 Apr, 2012 [facility] [address] [id number] [address] [place] [address], [place] [address] 13 Apr, 2012 [facility] [address] [id number] [address] [place] [address], [place] [address] 13 Apr, 2012 [facility] [address] [id number] [address] [place] [address], [place] [address] 13 Apr, 2012 [facility] [address] [id number] [address] [place] [address], [place] [address] 11 Apr, 2012 [facility] [address] [id number] [address] [place] [address] Apr, [facility] [address] [id number] [address] [place] [address], [place] [address] Mar, [facility] [address] [id number] [address] [place] [address], [place] [address] Mar, [facility] [address] [id number] [address] [place] [address], [place] [address] Mar, [facility] [address] [id number] [address] [place] [address], [place] [address] Mar, [facility] [address] [id number] [address] [place] [address], [place] [address] Jan, [facility] [address] [id number] [address] [place] [address], [place] [address] Jan, [facility] [address] [id number] [address] [place] [address], [place] [address] Jan, [facility] [address] [id number] [address] [place] [address], [place] [address] Jan, [facility] [address] [id number] [place] [id number] Dec, [facility] [address] [id number] [address] [place] [id number] Dec, [facility] [address] [id number] [place] [id number] Dec, [facility] [address] [id number] [address] [place] [id number] Dec, [facility] [address] [id number] [address] [place] [address], [place] [address] Dec, [facility] [address] [id number] [address] [place] [address], [place] [address] Dec, [facility] [address] [id number] [address] [place] [address], [place] [address] Nov, [facility] [address] [id number] [address] [place] [id number] Nov, [facility] [address] [facility] [id number] [address] [place] [id number] Nov, IMMUNIZATIONS No Known Immunizations SOCIAL HISTORY [...] Stent placed 08/19/2017 Hospitalization History [facility]ope- [facility] 12/2017 Hospitalization History heart cath ( 06/23/18-06/25/2018) Hospitalization History heart problem, overnight stay 9
--- OUTSIDE RECORDS SUMMARY | 2019-11-03 19:20 | XMS REPORT ---
Author Author Anca Lucero Doctor Organization [facility] Address Unknown Phone Unavailable Care Team Providers Care [employer] Name Role Phone Migration, Doctor Unavailable Unavailable PROBLEMS Type Condition ICD9-CM Code YXB49-OL Code Onset Dates Condition S tatus SNOMED Code Problem Esophageal reflux K21.9 Active 24 0504142 Problem Dyslipidemia E78.5 12 Oct, 2017 Active 3709 07102 Problem Unspecified hypothyroidism E03.9 Act hernesto 82028943 Problem Generalized anxiety disorder F41.1 Apr, 200 8 Active 60241819 Problem Shortness of breath R06.02 Apr, Active 158659027 Problem Pulmonary embolus I26.99 13 Oct, 2011 Active 43068872 Problem Nonintractable migraine G43.009 08 Oct, 2015 Act hernesto 674985677 Problem Pre-diabetes R73.03 Active 4260397 02 Problem Morbid obesity with BMI of 50.0-59.9, adult Z68.43 Active 975131690 Problem Hypothyroidism E03.9 Active 69355 008 Problem Morbid obesity E66.01 Active 45297 6002 Problem Unspecified sleep apnea G47.30 Active 75305572 Problem Personal history of pulmonary embolism Z86.711 Active 333510215 Problem Osteoarthritis of right knee M17.11 13 May, 201 0 Active 649414867 Problem Renal stones N20.0 Active 2729892 7 Problem Coronary artery disease I25.10 Active 67211922 Problem Hyperlipidemia LDL goal <70 E78.5 Ac tive 51398370 Problem Migraine with aura and without status migrainosu s, not intractable G43.109 Active 2546861 ALLERGIES No Information ENCOUNTERS Encounter Location Date Diagnosis [facility] [address] [id number] [address] [place] [address] September, [facility] [address] [id number] [address] [place] [phone] September, [facility] [address] [id number] [address] [place] [phone] Aug, [facility] [address] [id number] [address] [place] [address] Aug, History of recurrent UTIs Z8 7.440 and Personal history of pulmonary embolism Z86.711 [facility] [address] [id number] [address] [place] [address] Jul, History of recurrent UTIs Z8 7.440 [facility] [address] [id number] [address] [place] [address] Jun, Personal history of pulmonar y embolism Z86.711 [place] [address] [id number] [address] [place] [address] 07 Jun, 2019 Personal history of pulmonar y embolism Z86.711 [place] [address] [id number] [address] [place] [address] May, [facility] [address] [id number] [address] May, 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 and Dizziness R42 [facility] [address] [id number] [address] [place] [address] Apr, Non-recurrent acute suppurat hernesto otitis media of both ears without spontaneous rupture of tympanic membranes H66.003 [place] [address] [id number] [address] [place] [address] Feb, Pre-diabetes R73.03 and Hype rlipidemia LDL goal <70 E78.5 [facility] [address] [id number] [address] [place] [address] Feb, [place] [address] [id number] [address] [place] [phone] Feb, [facility] [address] [id number] [address] [place] [address] Jan, [place] [address] [id number] [address] [place] [address] 24 Jan, 2019 [facility] [address] [id number] [address] [place] [phone] 18 Jan, 2019 Encounter for Medicare azael moreau wellness exam Z00.00 ; Hyperlipidemia LDL goal <70 E78.5 ; Coronary artery disease I25.10 ; Hypothyroidism E03.9 ; Osteoarthritis of right knee M17.11 ; Morbid obesity with BMI of 50.0-59.9, adult Z68.43 and Esophageal reflux K21.9 [facility] [address] [id number] [address] [place] [address] 13 Jan, 2019 Dysuria R30.0 and Hematuria, unspecified type R31.9 [facility] [address] [id number] [address] [place] [address] 13 Jan, 2019 Hematuria, unspecified type R31.9 [place] [address] [id number] [address] [place] [phone] Dec, Hematuria, unspecified type R31.9 [facility] [address] [id number] [address] [place] [address] Nov, Hematuria, unspecified type R31.[id number] [place] [phone] Nov, Other microscopic hematuria R31.29 [facility] [address] [id number] [address] [place] [address] Nov, Vaginal gena B37.3 ; Othe r microscopic hematuria R31.29 and Morbid obesity E66.01 [facility] [address] [id number] [address] [place] [address] Nov, [facility] [address] [id number] [address] [place] [phone] Nov, [facility] [address] [id number] [address] [place] [address] Nov, UTI symptoms R39.9 and Morbi d obesity E66.01 [place] [address] [id number] [address] [place] [address] Nov, [facility] [address] [id number] [address] [place] [address] September, [place] [address] [id number] [address] [place] [address] September, [place] [id number] [place] [address] Aug, Right foot pain M79.671 and Morbid obesity E66.01 [place] [address] [id number] [address] [place] [address] Jul, Right foot pain M79.671 and Morbid obesity E66.01 [facility] [place] [address] [place] [id number] [address] [place] [address] Jul, Injury of right foot, initia l encounter S99.921A and Morbid obesity E66.01 [place] [address] [place] [id number] [address] [place] [address] Jul, Recurrent syncope R55 and Mo rbid obesity E66.01 [place] [address] [id number] [address] [place] [address] Jul, [place] [address] [place] [id number] [address] [place] [address] Jun, Hematuria, unspecified type R31.9 and BMI 50.0-59.9, adult Z68.43 [place] [address] [id number] [address] [place] [address] 07 Jun, [address] 340B [id number] [place] [address] 04 Jun, 2018 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 [facility] [address] [id number] [address] [place] [address] May, Ankle pain, right M25.571 an d BMI 50.0-59.9, adult Z68.43 [place] [address] [address] May, [facility] [address] [place] [id number] [place] [address] May, [facility] [address] [address] Apr, [place] [address] [address] Apr, [place] [address] [address] Apr, [facility] [address] [place] [id number] [place] [address] Apr, BMI 50.0-59.9, adult Z68.43 and Weakness R53.1 [place] [address] [address] Apr, [facility] [address] [address] Apr, Dysuria R30.0 ; Hematuria R3 1.9 ; Renal lithiasis N20.0 and BMI 50.0-59.9, adult Z68.43 [place] [address] [address] Apr, [place] [address] [address] Apr, [place] [address] [address] Apr, Hypothyroidism E03.9 [place] [address] [place] [id number] [place] [address] Apr, Burning with urination R30.0 ; Type 2 diabetes mellitus with diabetic neuropathic arthropathy, 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 ; Acute bilateral low back pain without sciatica M54.5 and BMI 50.0- 59.9, adult Z68.43 [place] [address] [address] 02 Mar, 2018 Hypothyroidism E03.9 [facility] [address] [address] Feb, [facility] [place] [address] [address] 15 Jan, 2018 [place] [address] [address] 07 Jan, 2018 Acute non-recurrent maxillar y sinusitis J01.00 and BMI 50.0-59.9, adult Z68.43 [facility] [place] [address] [address] 04 Jan, 2018 Congestion of upper respirat ory tract J98.8 and BMI 50.0-59.9, adult Z68.43 [place] [address] [address] Dec, Type 2 diabetes mellitus wit h diabetic neuropathic arthropathy, 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 ; Morbid obesity with BMI of 50.0-59.9, adult Z68.43 ; Hypothyroidism E03.9 ; Coronary artery disease I25.10 ; Hyperlipidemia LDL goal <70 E78.5 ; Right lower quadrant abdominal pain R10.31 and Acute cystitis with hematuria N30.01 [facility] [place] [address] [address] Dec, Migraine with aura and witho ut status migrainosus, not intractable G43.109 ; Dehydration symptoms R63.8 and BMI 50.0-59.9, adult Z68.43 [place] [address] [address] Oct, [place] [address] [address] Oct, [place] [address] [address] Oct, [place] [address] [address] September, [place] [address] [address] September, Type 2 diabetes mellitus wit h diabetic neuropathic arthropathy, 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 ; Hyperlipidemia, unspecified hyperlipidemia type E78.5 ; Personal history of pulmonary embolism Z86.711 ; Coronary artery disease I25.10 and Hypothyroidism E03.9 [place] [address] [address] September, [place] [address] [address] Aug, Type 2 diabetes mellitus wit h [...] without aura and with status migrainosus G43.011 [place] [address] [address] Aug, [place] [address] [address] Aug, [place] [address] [address] Jul, Renal stones N20.0 [facility] [address] [place] [id number] [address] [place] [address] Jun, Back pain M54.9 ; Kidney sto radha N20.0 and BMI 50.0-59.9, adult Z68.43 [place] [address] [place] [id number] [address] [place] [address] Jun, [facility] [address] [id number] [address] [place] [address] Apr, [facility] [address] [id number] [address] [place] [address] Apr, [place] [address] [place] [id number] [place] [address] Apr, Right foot pain M79.671 ; Ac ronnie gout involving toe of right foot, 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 and Arthritis M19.90 [place] [address] [place] [id number] [place] [address] 06 Apr, 2017 Gastroesophageal reflux dise ase without esophagitis K21.9 [place] [address] [place] [id number] [address] [place] [address] Mar, Hypothyroidism, unspecified E03.9 [place] [address] [place] [id number] [address] [place] [address] Feb, [place] [address] [address] 25 Jan, 2017 Cervicalgia of occipito-atla nto-axial region M54.2 and Persistent headaches R51 [place] [address] [place] [id number] [address] [place] [address] Jan, [place] [address] [place] [id number] [address] [place] [address] 12 Jan, 2017 Intractable migraine without aura and with status migrainosus G43.011 ; Cervical spine pain M54.2 ; Hyperlipidemia, unspecified hyperlipidemia type E78.5 ; Hypothyroidism E03.9 and Metabolic syndrome E88.81 [place] [address] [place] [id number] [address] [place] [address] 11 Jan, 2017 Hypothyroidism, unspecified E03.9 [place] [address] [place] [id number] [address] [place] [address] Dec, Hypothyroidism, unspecified E03.9 [place] [address] [place] [id number] [address] [place] [address] Dec, Hypothyroidism E03.9 [place] [address] [place] [id number] [address] [place] [address] Nov, Laceration of left great toe w/o foreign body w/o damage to nail, initial encounter S91.112A [facility] [address] [address] Oct, Pain in left knee M25.562 an d Arthritis M19.90 [place] [address] [address] Oct, Hypothyroidism, unspecified E03.9 and Hyperlipidemia, unspecified hyperlipidemia type E78.5 [place] [address] [address] Oct, Gastroesophageal reflux dise ase without esophagitis K21.9 [place] [address] [place] [id number] [address] [place] [address] 14 Oct, 2016 Metabolic syndrome E88.81 ; Personal history of pulmonary embolism Z86.711 ; Other specified hypothyroidism E03.8 and Hyperlipidemia, unspecified hyperlipidemia type E78.5 [place] [address] [address] 13 Oct, 2016 Personal history of pulmonar y embolism Z86.711 ; Dysuria R30.0 ; Metabolic syndrome E88.81 ; Other specified hypothyroidism E03.8 ; Hyperlipidemia, unspecified hyperlipidemia type E78.5 and Morbid obesity with BMI of 50.0-59.9, adult Z68.43 [place] [address] [address] September, [facility] [address] [address] September, Wrist pain, left M25.532 and Acute pain of left knee M25.562 [place] [address] [place] [id number] [address] [place] [address] Jul, Dysuria R30.0 [place] [address] [place] [id number] [place] [address] Jul, Dysuria R30.0 [place] [address] [place] [id number] [address] [place] [address] Jul, Left lower quadrant pain R10 .32 [place] [address] [address] Jul, [place] [address] [address] Jul, Coronary artery disease I25. 10 ; Family history of diabetes mellitus Z83.3 ; Morbid obesity with BMI of 50.0-59.9, adult Z68.43 ; Metabolic syndrome E88.81 ; Personal history of pulmonary embolism Z86.711 ; Gastroesophageal reflux disease without esophagitis K21.9 ; Hypothyroidism, unspecified E03.9 ; Hyperlipidemia, unspecified hyperlipidemia type E78.5 and Left lower quadrant pain R10.32 [facility] [place] [address] [address] Jul, [facility] [address] [address] 08 Jul, 2016 Morbid obesity with BMI of 5 0.0-59.9, adult Z68.43 [facility] [place] [address] [place] [id number] [place] [address] Jul, Generalized abdominal pain R 10.84 [facility] [address] [address] Jun, Muscle strain of right upper back, initial encounter S29.012A [facility] [place] [id number] [address] [place] [address] May, Foreign body (FB) in soft ti ssue M79.5 [place] [address] [place] [address] Mar, Hypothyroidism, unspecified E03.9 and Arthritis M19.90 [place] [address] [address] 13 Feb, 2016 Coronary artery disease I25. 10 ; Morbid obesity with BMI of 50.0- 59.9, adult Z68.43 ; Metabolic syndrome E88.81 ; Gastroesophageal reflux disease without esophagitis K21.9 ; Hypothyroidism, unspecified E03.9 ; Personal history of pulmonary embolism Z86.711 and Hyperlipidemia, unspecified hyperlipidemia type E78.5 [place] [address] [address] Feb, [facility] [address] [place] [id number] [place] [address] 12 Jan, 2016 Acute right-sided thoracic b ack pain M54.6 [place] [address] [address] Jan, Acute pain of left knee M25. 562 [place] [address] [address] 18 Dec, 2015 Dysuria R30.0 ; Metabolic sy ndrome E88.81 ; Acute pain of left knee M25.562 ; Acute cystitis with hematuria N30.01 and Acute left eye pain H57.12 [place] [address] [address] Dec, [place] [address] [address] Dec, [place] [address] [address] Dec, Hypothyroidism, unspecified E03.9 [place] [address] [address] Dec, [place] [address] [address] Nov, Peripheral edema R60.9 and A cute pain of left knee M25.562 [facility] [place] [address] [place] [id number] [address] [place] [address] September, [place] [address] [place] [id number] [address] [place] [address] September, Metabolic syndrome E88.81 an d Allergy, subsequent encounter T78.40XD [facility] [place] [address] [id number] [address] [place] [address] September, Muscle strain T14.8 [place] [address] [place] [id number] [address] [place] [address] Aug, Chest pressure R07.89 ; Maybee bolic syndrome E88.81 ; Morbid obesity with BMI of 50.0-59.9, adult Z68.43 ; Esophageal reflux 530.81 and Shortness of breath R06.02 [place] [address] [place] [id number] [address] [place] [address] Aug, [place] [address] [id number] [address] [place] [address] Aug, [place] [address] [place] [id number] [address] [place] [address] Aug, Hypothyroidism, unspecified E03.9 [place] [address] [place] [id number] [address] [place] [address] Aug, Routine health maintenance Z 00.00 [facility] [place] [address] [id number] [address] [place] [address] Aug, [place] [address] [place] [id number] [address] [place] [address] Jul, Routine health maintenance Z 00.00 ; Family history of diabetes mellitus Z83.3 ; Family history of cancer Z80.9 and Morbid obesity with BMI of 50.0-59.9, adult Z68.43 [facility] [address] [place] [address] 28 Jul, 2015 Allergic rhinitis J30.9 and Postnasal drip R09.82 [facility] [address] [id number] [address] [place] [address] 18 Jul, 2015 Influenza J11.1 [facility] [address] [id number] [address] [place] [address] 08 Jul, 2015 Dysuria R30.0 [facility] [address] [place] [id number] [address] [place] [address] Apr, [place] [address] [address] Mar, Acute upper respiratory infe ction, unspecified J06.9 and Hypothyroidism E03.9 [place] [address] [address] Mar, [place] [address] [address] Feb, Coronary artery disease I25. 10 [place] [address] [address] Feb, Left foot pain M79.672 [place] [address] [place] [id number] [address] [place] [address] Jan, UTI (urinary tract infection ) 599.0 [place] [address] [place] [id number] [address] [place] [address] Jan, Urinary tract infection, sit e not specified 599.0 [place] [address] [place] [id number] [address] [place] [address] Jan, Urinary tract infection, sit e not specified 599.0 [place] [address] [place] [id number] [address] [place] [address] Jan, [place] [address] [place] [id number] [address] [place] [address] Dec, Headache 784.0 [facility] [address] [id number] [address] [place] [address] Dec, Urinary tract infection, sit e not specified 599.0 [facility] [address] [id number] [address] [place] [address] Dec, Urinary tract infection, sit e not specified 599.0 [facility] [address] [id number] [address] [place] [address] Dec, Urinary tract infection, sit e not specified 599.0 [facility] [address] [id number] [address] [place] [address] Nov, Unspecified sleep apnea 780. 57 ; Encounter for long-term (current) use of anticoagulants V58.61 ; Routine general medical examination at health care facility V70.0 and Arthritis of both knees 716.96 [facility] [address] [place] [id number] [address] [place] [address] September, Cat bite of hand 882.0 and R ectal bleeding 569.3 [facility] [address] [id number] [address] [place] [address] Aug, [facility] [address] [id number] [address] [place] [address] Aug, [facility] [address] [id number] [address] [place] [address] Jul, [facility] [address] [id number] [address] [place] [phone] Jul, [facility] [address] [id number] [address] [place] [phone] Jul, [facility] [address] [id number] [address] [place] [id number] Jul, [facility] [address] [id number] [address] [place] [id number] Jul, [facility] [address] [id number] [address] [place] [address], [place] [id number] Jul, [facility] [address] [id number] [address] [place] [address], [place] [phone] Jul, [facility] [address] [id number] [address] [place] [address], [place] [id number] Jul, [facility] [address] [id number] [address] [place] [address], [place] [id number] May, [facility] [address] [id number] [address] [place] [address], [place] [id number] May, [facility] [address] [id number] [address] [place] [address], [place] [id number] May, [facility] [address] [id number] [address] [place] [address], [place] [phone] May, [facility] [address] [id number] [address] [place] [address], [place] [id number] May, [facility] [address] [id number] [address] [place] [address], [place] [id number] May, [facility] [address] [id number] [address] [place] [address], [place] [id number] May, [facility] [address] [id number] [address] [place] [address], [place] [id number] Mar, [facility] [address] [id number] [address] [place] [address], [place] [id number] Mar, [facility] [address] [id number] [address] [place] [address], [place] [id number] Jan, [facility] [address] [id number] [address] [place] [address], [place] [address] Jan, [facility] [address] [id number] [address] [place] [address], [place] [address] Jan, [facility] [address] [id number] [address] [place] [address], [place] [address] Jan, [facility] [address] [id number] [address] [place] [address], [place] [address] Jan, [facility] [address] [id number] [address] [place] [address], [place] [address] Jan, [facility] [address] [id number] [address] [place] [address], [place] [address] Dec, [facility] [address] [id number] [address] [place] [address], [place] [address] Dec, [facility] [address] [id number] [address] [place] [address], [place] [address] Dec, [facility] [address] [id number] [address] [place] [address], [place] [address] Dec, [facility] [address] [id number] [address] [place] [address], [place] [address] Dec, [facility] [address] [id number] [address] [place] [address], [place] [address] Dec, [facility] [address] [id number] [address] [place] [address], [place] [address] Dec, [facility] [address] [id number] [address] [place] [address], [place] [address] Dec, [facility] [address] [id number] [address] [place] [address], [place] [address] Dec, [facility] [address] [id number] [address] [place] [address], [place] [address] Dec, [facility] [address] [id number] [address] [place] [address], [place] [address] Nov, [facility] [address] [id number] [address] [place] [address], [place] [address] Nov, [facility] [address] [id number] [address] [place] [address], [place] [address] September, [facility] [address] [id number] [address] [place] [address], [place] [address] September, [facility] [address] [id number] [address] [place] [address], [place] [address] September, [facility] [address] [id number] [address] [place] [address], [place] [address] September, [facility] [address] [id number] [address] [place] [address], [place] [address] Aug, [facility] [address] [id number] [address] [place] [address], [place] [address] Aug, [facility] [address] [id number] [address] [place] [address], [place] [address] Aug, [facility] [address] [id number] [address] [place] [address], [place] [address] Aug, [facility] [address] [id number] [address] [place] [address], [place] [address] Aug, [facility] [address] [id number] [address] [place] [address], [place] [address] Aug, [facility] [address] [id number] [address] [place] [address], [place] [address] Aug, [facility] [address] [id number] [address] [place] [address], [place] [address] Aug, [facility] [address] [id number] [address] [place] [address], [place] [address] Aug, [facility] [address] [id number] [address] [place] [address], [place] [address] Aug, [facility] [address] [id number] [address] [place] [address], [place] [address] Aug, [facility] [address] [id number] [address] [place] [address], [place] [address] Aug, [facility] [address] [id number] [address] [place] [address], [place] [address] Jul, [facility] [address] [id number] [address] [place] [address], [place] [address] Jul, [facility] [address] [id number] [address] [place] [address], [place] [address] Jul, [facility] [address] [id number] [address] [place] [address], [place] [address] Jul, [facility] [address] [id number] [address] [place] [address], [place] [address] Jul, [facility] [address] [id number] [address] [place] [address], [place] [address] Jul, [facility] [address] [id number] [address] [place] [address], [place] [address] Jul, [facility] [address] [id number] [address] [place] [address], [place] [address] Jul, [facility] [address] [id number] [address] [place] [address], [place] [address] Jul, [facility] [address] [id number] [address] [place] [address], [place] [address] Jul, [facility] [address] [id number] [address] [place] [address], [place] [address] Jun, [facility] [address] [id number] [address] [place] [address], [place] [address] Jun, [facility] [address] [id number] [address] [place] [address], [place] [address] Jun, [facility] [address] [id number] [address] [place] [address], [place] [address] Jun, [facility] [address] [id number] [address] [place] [address], [place] [address] Jun, [facility] [address] [id number] [address] [place] [address], [place] [address] Jun, [facility] [address] [id number] [address] [place] [address], [place] [address] Jun, [facility] [address] [id number] [address] [place] [address], [place] [address] Jun, [facility] [address] [id number] [address] [place] [address], [place] [address] Jun, [facility] [address] [id number] [address] [place] [address], [place] [address] Jun, [facility] [address] [id number] [address] [place] [address], [place] [address] Jun, [facility] [address] [id number] [address] [place] [address], [place] [address] Jun, [facility] [address] [id number] [address] [place] [address], [place] [address] May, [facility] [address] [id number] [address] [place] [address], [place] [address] May, [facility] [address] [id number] [address] [place] [address], [place] [address] May, [facility] [address] [id number] [address] [place] [address], [place] [address] May, [facility] [address] [id number] [address] [place] [address], [place] [address] May, [facility] [address] [id number] [address] [place] [address], [place] [address] May, [facility] [address] [id number] [address] [place] [address], [place] [address] May, [facility] [address] [id number] [address] [place] [address], [place] [address] May, [facility] [address] [id number] [address] [place] [address], [place] [address] May, [facility] [address] [id number] [address] [place] [address], [place] [address] May, [facility] [address] [id number] [address] [place] [address], [place] [address] May, [facility] [address] [id number] [address] [place] [address], [place] [address] May, [facility] [address] [id number] [address] [place] [address], [place] [address] May, [facility] [address] [id number] [address] [place] [address], [place] [address] May, [facility] [address] [id number] [address] [place] [address], [place] [address] May, [facility] [address] [id number] [address] [place] [address], [place] [address] Apr, [facility] [address] [id number] [address] [place] [address], [place] [address] Apr, [facility] [address] [id number] [address] [place] [address], [place] [address] Apr, [facility] [address] [id number] [address] [place] [address], [place] [address] Apr, [facility] [address] [id number] [address] [place] [address], [place] [address] Mar, [facility] [address] [id number] [address] [place] [address], [place] [address] Mar, [facility] [address] [id number] [address] [place] [address], [place] [address] Mar, [facility] [address] [id number] [address] [place] [address], [place] [address] Mar, [facility] [address] [id number] [address] [place] [address], [place] [address] Mar, [facility] [address] [id number] [address] [place] [address], [place] [address] Mar, [facility] [address] [id number] [address] [place] [address], [place] [address] 07 Mar, 2013 [facility] [address] [id number] [address] [place] [address], [place] [address] Mar, [facility] [address] [id number] [address] [place] [address], [place] [address] Mar, [facility] [address] [id number] [address] [place] [address], [place] [address] Mar, [facility] [address] [id number] [address] [place] [address], [place] [address] Mar, [facility] [address] [id number] [address] [place] [address], [place] [address] Mar, [facility] [address] [id number] [address] [place] [address], [place] [address] Feb, [facility] [address] [id number] [address] [place] [address], [place] [address] 18 Jan, 2013 [facility] [address] [id number] [address] [place] [address], [place] [address] 17 Jan, 2013 [facility] [address] [id number] [address] [place] [address], [place] [address] 06 Jan, 2013 [facility] [address] [id number] [address] [place] [address], [place] [address] 04 Jan, 2013 [facility] [address] [id number] [address] [place] [address], [place] [address] 03 Jan, 2013 [facility] [address] [id number] [address] [place] [address], [place] [address] Dec, [facility] [address] [id number] [address] [place] [address], [place] [address] Dec, [facility] [address] [id number] [address] [place] [address], [place] [address] 18 Dec, 2012 [facility] [address] [id number] [address] [place] [address], [place] [address] 16 Dec, 2012 [facility] [address] [id number] [facility] [place] [address] Dec, [facility] [address] [id number] [address] [place] [address], [place] [address] Dec, [facility] [address] [id number] [address] [place] [address], [place] [address] Dec, [facility] [address] [id number] [address] [place] [address], [place] [address] Dec, [facility] [address] [id number] [address] [place] [address], [place] [address] Nov, [facility] [address] [id number] [address] [place] [address], [place] [address] Nov, [facility] [address] [id number] [address] [place] [address], [place] [address] Nov, [facility] [address] [id number] [address] [place] [address], [place] [address] Nov, [facility] [address] [id number] [address] [place] [address], [place] [address] Nov, [facility] [address] [id number] [address] [place] [address], [place] [address] Nov, [facility] [address] [id number] [address] [place] [address], [place] [address] Oct, [facility] [place] [address] [id number] [place] [id number] Oct, [facility] [place] [address] [id number] [place] [id number] Oct, [facility] [place] [address] [id number] [place] [id number] Oct, [facility] [place] [address] [id number] [place] [id number] Oct, [facility] [address] [id number] [address] [place] [address], [place] [address] Oct, [facility] [address] [id number] [address] [place] [address], [place] [address] 12 Oct, 2012 [facility] [address] [id number] [address] [place] [address], [place] [address] 12 Oct, 2012 [facility] [address] [id number] [address] [place] [address], [place] [address] Oct, [facility] [address] [id number] [address] [place] [address], [place] [address] Oct, [facility] [address] [id number] [address] [place] [address], [place] [address] 05 Oct, 2012 [facility] [address] [id number] [address] [place] [address], [place] [address] September, [facility] [address] [id number] [address] [place] [address], [place] [address] Aug, [facility] [address] [id number] [address] [place] [address], [place] [address] Aug, [facility] [address] [id number] [address] [place] [address], [place] [address] Aug, [facility] [address] [id number] [address] [place] [address], [place] [address] Aug, [facility] [address] [id number] [address] [place] [address], [place] [address] Jul, [facility] [address] [id number] [address] [place] [address], [place] [address] Jul, [facility] [address] [id number] [address] [place] [address], [place] [address] Jul, [facility] [address] [id number] [address] [place] [address], [place] [address] 05 Jul, 2012 [facility] [address] [id number] [address] [place] [address], [place] [address] Jul, [facility] [address] [id number] [address] [place] [address], [place] [address] Jun, [facility] [address] [id number] [address] [place] [address], [place] [address] 13 Jun, 2012 [facility] [address] [id number] [address] [place] [address], [place] [address] Jun, [facility] [address] [id number] [address] [place] [address], [place] [address] May, [facility] [address] [id number] [address] [place] [address], [place] [address] 24 May, 2012 [facility] [address] [id number] [address] [place] [address], [place] [address] May, [facility] [address] [id number] [address] [place] [address], [place] [address] May, [facility] [address] [id number] [address] [place] [address], [place] [address] May, [facility] [address] [id number] [address] [place] [address], [place] [address] May, [facility] [address] [id number] [address] [place] [address], [place] [address] 18 Apr, 2012 [facility] [address] [id number] [address] [place] [address], [place] [address] 18 Apr, 2012 [facility] [address] [id number] [address] [place] [address], [place] [address] 13 Apr, 2012 [facility] [address] [id number] [address] [place] [address], [place] [address] 13 Apr, 2012 [facility] [address] [id number] [address] [place] [address], [place] [address] Apr, [facility] [address] [id number] [address] [place] [address], [place] [address] Apr, [facility] [address] [id number] [address] [place] [address], [place] [address] 11 Apr, 2012 [facility] [address] [id number] [address] [place] [address], [place] [address] Mar, [facility] [address] [id number] [address] [place] [address], [place] [address] Mar, [facility] [address] [id number] [address] [place] [address], [place] [address] Mar, [facility] [address] [id number] [address] [place] [address], [place] [address] Mar, [facility] [address] [id number] [address] [place] [address], [place] [address] Jan, [facility] [address] [id number] [address] [place] [address], [place] [address] Jan, [facility] [address] [id number] [address] [place] [address], [place] [address] Jan, [facility] [address] [id number] [address] [place] [address], [place] [address] Jan, [facility] [address] [id number] [place] [id number] Dec, [facility] [address] [id number] [address] [place] [address], [place] [address] Dec, [facility] [address] [id number] [place] [id number] Dec, [facility] [address] [id number] [address] [place] [address], [place] [address] Dec, [facility] [address] [id number] [address] [place] [address], [place] [address] Dec, [facility] [address] [id number] [address] [place] [address], [place] [id number] Dec, [facility] [address] [id number] [address] [place] [address], [place] [id number] Nov, [facility] [address] [id number] [address] [place] [address], [place] [id number] Nov, [facility] [address] [id number] [address] [place] [address], [place] [id number] Nov, IMMUNIZATIONS No Known Immunizations SOCIAL HISTORY [...] asthma(493.90) Medical History Near syncope Medical History [facility] current use of anticoagulant Medical History Renal [...] Stent placed 08/19/2017 Hospitalization History Syncope- [facility] 12/2017 Hospitalization History heart cath ( 06/23/18-06/25/2018) Hospitalization History heart problem, overnight stay 9
--- OUTSIDE RECORDS SUMMARY | 2019-11-03 19:20 | XMS REPORT ---
Author Author Anca Lucero Doctor Organization [facility] Address Unknown Phone Unavailable Care Team Providers Care Binder Selector Name Role Phone Migration, Doctor Unavailable Unavailable PROBLEMS Type Condition ICD9-CM Code QFN28-EC Code Onset Dates Condition S tatus SNOMED Code Problem Esophageal reflux K21.9 Active 24 6279440 Problem Dyslipidemia E78.5 12 Oct, 2017 Active 3709 40131 Problem Unspecified hypothyroidism E03.9 Act hernesto 17134385 Problem Generalized anxiety disorder F41.1 Apr, 200 8 Active 38693630 Problem Shortness of breath R06.02 Apr, Active 284709265 Problem Pulmonary embolus I26.99 13 Oct, 2011 Active 07542517 Problem Nonintractable migraine G43.009 08 Oct, 2015 Act hernesto 475146728 Problem Pre-diabetes R73.03 Active 2230617 02 Problem Morbid obesity with BMI of 50.0-59.9, adult Z68.43 Active 672031236 Problem Hypothyroidism E03.9 Active 11020 008 Problem Morbid obesity E66.01 Active 58863 6002 Problem Unspecified sleep apnea G47.30 Active 92767155 Problem Personal history of pulmonary embolism Z86.711 Active 752397580 Problem Osteoarthritis of right knee M17.11 13 May, 201 0 Active 883213402 Problem Renal stones N20.0 Active 1389018 7 Problem Coronary artery disease I25.10 Active 90810465 Problem Hyperlipidemia LDL goal <70 E78.5 Ac tive 07815948 Problem Migraine with aura and without status migrainosu s, not intractable G43.109 Active 0180172 ALLERGIES No Information ENCOUNTERS Encounter Location Date Diagnosis [facility] [address] [facility] [id number] [address] [place] [phone] September, [facility] [address] [facility] [id number] [address] [place] [id number] September, [facility] [address] [facility] [id number] [address] [place] [address] Aug, [facility] [address] [id number] [address] [place] [address] Aug, History of recurrent UTIs Z8 7.440 and Personal history of pulmonary embolism Z86.711 [facility] [address] [id number] [address] [place] [address] Jul, History of recurrent UTIs Z8 7.440 [facility] [address] [id number] [address] [place] [address] Jun, Personal history of pulmonar y embolism Z86.711 [place] [address] [facility] [id number] [address] [place] [address] 07 Jun, 2019 Personal history of pulmonar y embolism Z86.711 [place] [address] [facility] [id number] [address] [place] [address] May, [facility] [address] [id number] [address] May, 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 and Dizziness R42 [facility] [address] [facility] [id number] [address] [place] [phone] Apr, Non-recurrent acute suppurat hernesto otitis media of both ears without spontaneous rupture of tympanic membranes H66.003 [place] [address] [facility] [id number] [address] [place] [address] Feb, Pre-diabetes R73.03 and Hype rlipidemia LDL goal <70 E78.5 [facility] [address] [facility] [id number] [address] [place] [phone] Feb, [place] [address] [facility] [id number] [address] [place] [phone] Feb, [facility] [address] [facility] [id number] [address] [place] [phone] Jan, [place] [address] [facility] [id number] [address] [place] [id number] 24 Jan, 2019 [facility] [address] [facility] [id number] [address] [place] [id number] 18 Jan, 2019 Encounter for Medicare azael moreau wellness exam Z00.00 ; Hyperlipidemia LDL goal <70 E78.5 ; Coronary artery disease I25.10 ; Hypothyroidism E03.9 ; Osteoarthritis of right knee M17.11 ; Morbid obesity with BMI of 50.0-59.9, adult Z68.43 and Esophageal reflux K21.9 [facility] [address] [facility] [id number] [address] [place] [id number] 13 Jan, 2019 Dysuria R30.0 and Hematuria, unspecified type R31.9 [facility] [address] [facility] [id number] [address] [place] [phone] 13 Jan, 2019 Hematuria, unspecified type R31.9 [place] [address] [facility] [id number] [address] [place] [address] Dec, Hematuria, unspecified type R31.9 [facility] [address] [facility] [id number] [address] [place] [address] Nov, Hematuria, unspecified type R31.[id number] [place] [phone] Nov, Other microscopic hematuria R31.29 [facility] [address] [facility] [id number] [address] [place] [address] Nov, Vaginal gena B37.3 ; Othe r microscopic hematuria R31.29 and Morbid obesity E66.01 [facility] [address] [facility] [id number] [address] [place] [address] Nov, [facility] [address] [facility] [id number] [address] [place] [phone] Nov, [facility] [address] [facility] [id number] [address] [place] [address] Nov, UTI symptoms R39.9 and Morbi d obesity E66.01 [place] [id number] [facility] [id number] [address] [place] [phone] Nov, [facility] [address] [facility] [id number] [address] [place] [address] September, [place] [address] [facility] [id number] [address] [place] [address] September, [place] [address] [facility] [id number] [place] [address] Aug, Right foot pain M79.671 and Morbid obesity E66.01 [place] [address] [facility] [id number] [address] [place] [address] Jul, Right foot pain M79.671 and Morbid obesity E66.01 [facility] [place] [address] [place] [id number] [address] [place] [address] Jul, Injury of right foot, initia l encounter S99.921A and Morbid obesity E66.01 [place] [address] [place] [id number] [address] [place] [address] Jul, Recurrent syncope R55 and Mo rbid obesity E66.01 [place] [address] [facility] [id number] [address] [place] [address] Jul, [place] [address] [place] [id number] [address] [place] [address] Jun, Hematuria, unspecified type R31.9 and BMI 50.0-59.9, adult Z68.43 [place] [address] [facility] [id number] [address] [place] [address] 07 Jun, [address] 340B [id number] [place] [address] 04 Jun, 2018 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 [facility] [address] [facility] [id number] [address] [place] [address] May, Ankle pain, right M25.571 an d BMI 50.0-59.9, adult Z68.43 [place] [address] [address] May, [facility] [address] [place] [id number] [place] [address] May, [facility] [address] [address] Apr, [place] [address] [address] Apr, [place] [address] [address] Apr, [facility] [address] [place] [id number] [place] [address] Apr, BMI 50.0-59.9, adult Z68.43 and Weakness R53.1 [place] [address] [address] Apr, [facility] [address] [address] Apr, Dysuria R30.0 ; Hematuria R3 1.9 ; Renal lithiasis N20.0 and BMI 50.0-59.9, adult Z68.43 [place] [address] [address] Apr, [place] [address] [address] Apr, [place] [address] [address] Apr, Hypothyroidism E03.9 [place] [address] [place] [id number] [place] [address] Apr, Burning with urination R30.0 ; Type 2 diabetes mellitus with diabetic neuropathic arthropathy, 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 ; Acute bilateral low back pain without sciatica M54.5 and BMI 50.0- 59.9, adult Z68.43 [place] [address] [address] 02 Mar, 2018 Hypothyroidism E03.9 [facility] [address] [address] Feb, [facility] WALK IN [place] [address] [address] 15 Jan, 2018 [place] [address] [address] 07 Jan, 2018 Acute non-recurrent maxillar y sinusitis J01.00 and BMI 50.0-59.9, adult Z68.43 [facility] [place] [address] [address] 04 Jan, 2018 Congestion of upper respirat ory tract J98.8 and BMI 50.0-59.9, adult Z68.43 [place] [address] [address] Dec, Type 2 diabetes mellitus wit h diabetic neuropathic arthropathy, 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 ; Morbid obesity with BMI of 50.0-59.9, adult Z68.43 ; Hypothyroidism E03.9 ; Coronary artery disease I25.10 ; Hyperlipidemia LDL goal <70 E78.5 ; Right lower quadrant abdominal pain R10.31 and Acute cystitis with hematuria N30.01 [facility] [place] [id number] [address] Dec, Migraine with aura and witho ut status migrainosus, not intractable G43.109 ; Dehydration symptoms R63.8 and BMI 50.0-59.9, adult Z68.43 [place] [address] [address] Oct, [place] [address] [address] Oct, [place] [address] [address] Oct, [place] [address] [address] September, [place] [address] [address] September, Type 2 diabetes mellitus wit h diabetic neuropathic arthropathy, 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 ; Hyperlipidemia, unspecified hyperlipidemia type E78.5 ; Personal history of pulmonary embolism Z86.711 ; Coronary artery disease I25.10 and Hypothyroidism E03.9 [place] [address] [address] September, [place] [address] [address] Aug, Type 2 diabetes mellitus wit h [...] without aura and with status migrainosus G43.011 [place] [address] [address] Aug, [place] [address] [address] Aug, [place] [address] [address] Jul, Renal stones N20.0 [facility] [address] [place] [id number] [address] [place] [address] Jun, Back pain M54.9 ; Kidney sto radha N20.0 and BMI 50.0-59.9, adult Z68.43 [place] [address] [place] [id number] [address] [place] [address] Jun, [facility] [address] [facility] [id number] [address] [place] [address] Apr, [facility] [address] [facility] [id number] [address] [place] [address] Apr, [place] [address] [place] [id number] [place] [address] Apr, Right foot pain M79.671 ; Ac ronnie gout involving toe of right foot, 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 and Arthritis M19.90 [place] [address] [place] [id number] [place] [address] 06 Apr, 2017 Gastroesophageal reflux dise ase without esophagitis K21.9 [place] [address] [place] [id number] [address] [place] [address] Mar, Hypothyroidism, unspecified E03.9 [place] [address] [place] [id number] [address] [place] [address] Feb, [place] [address] [address] 25 Jan, 2017 Cervicalgia of occipito-atla nto-axial region M54.2 and Persistent headaches R51 [place] [address] [place] [id number] [address] [place] [address] Jan, [place] [address] [place] [id number] [address] [place] [address] 12 Jan, 2017 Intractable migraine without aura and with status migrainosus G43.011 ; Cervical spine pain M54.2 ; Hyperlipidemia, unspecified hyperlipidemia type E78.5 ; Hypothyroidism E03.9 and Metabolic syndrome E88.81 [place] [address] [place] [id number] [address] [place] [address] 11 Jan, 2017 Hypothyroidism, unspecified E03.9 [place] [address] [place] [id number] [address] [place] [address] Dec, Hypothyroidism, unspecified E03.9 [place] [address] [place] [id number] [address] [place] [address] Dec, Hypothyroidism E03.9 [place] [address] [place] [id number] [address] [place] [address] Nov, Laceration of left great toe w/o foreign body w/o damage to nail, initial encounter S91.112A [facility] [address] [address] Oct, Pain in left knee M25.562 an d Arthritis M19.90 [place] [address] [address] Oct, Hypothyroidism, unspecified E03.9 and Hyperlipidemia, unspecified hyperlipidemia type E78.5 [place] [address] [address] Oct, Gastroesophageal reflux dise ase without esophagitis K21.9 [place] [address] [place] [id number] [address] [place] [address] 14 Oct, 2016 Metabolic syndrome E88.81 ; Personal history of pulmonary embolism Z86.711 ; Other specified hypothyroidism E03.8 and Hyperlipidemia, unspecified hyperlipidemia type E78.5 [place] [address] [address] 13 Oct, 2016 Personal history of pulmonar y embolism Z86.711 ; Dysuria R30.0 ; Metabolic syndrome E88.81 ; Other specified hypothyroidism E03.8 ; Hyperlipidemia, unspecified hyperlipidemia type E78.5 and Morbid obesity with BMI of 50.0-59.9, adult Z68.43 [place] [address] [address] September, [facility] [address] [address] September, Wrist pain, left M25.532 and Acute pain of left knee M25.562 [place] [address] [place] [id number] [address] [place] [address] Jul, Dysuria R30.0 [place] [address] [place] [id number] [place] [address] Jul, Dysuria R30.0 [place] [address] [place] [id number] [address] [place] [address] Jul, Left lower quadrant pain R10 .32 [place] [address] [address] Jul, [place] [address] [address] Jul, Coronary artery disease I25. 10 ; Family history of diabetes mellitus Z83.3 ; Morbid obesity with BMI of 50.0-59.9, adult Z68.43 ; Metabolic syndrome E88.81 ; Personal history of pulmonary embolism Z86.711 ; Gastroesophageal reflux disease without esophagitis K21.9 ; Hypothyroidism, unspecified E03.9 ; Hyperlipidemia, unspecified hyperlipidemia type E78.5 and Left lower quadrant pain R10.32 [facility] [place] [address] [address] Jul, [facility] [address] [address] 08 Jul, 2016 Morbid obesity with BMI of 5 0.0-59.9, adult Z68.43 [facility] [place] [address] [place] [id number] [address] [place] [address] Jul, Generalized abdominal pain R 10.84 [facility] [address] [address] Jun, Muscle strain of right upper back, initial encounter S29.012A [facility] [place] [id number] [address] [place] [address] May, Foreign body (FB) in soft ti ssue M79.5 [place] [address] [place] [address] Mar, Hypothyroidism, unspecified E03.9 and Arthritis M19.90 [place] [address] [address] 13 Feb, 2016 Coronary artery disease I25. 10 ; Morbid obesity with BMI of 50.0- 59.9, adult Z68.43 ; Metabolic syndrome E88.81 ; Gastroesophageal reflux disease without esophagitis K21.9 ; Hypothyroidism, unspecified E03.9 ; Personal history of pulmonary embolism Z86.711 and Hyperlipidemia, unspecified hyperlipidemia type E78.5 [place] [address] [address] Feb, [facility] [address] [place] [id number] [place] [address] 12 Jan, 2016 Acute right-sided thoracic b ack pain M54.6 [place] [address] [address] Jan, Acute pain of left knee M25. 562 [place] [address] [address] 18 Dec, 2015 Dysuria R30.0 ; Metabolic sy ndrome E88.81 ; Acute pain of left knee M25.562 ; Acute cystitis with hematuria N30.01 and Acute left eye pain H57.12 [place] [address] [address] Dec, [place] [address] [address] Dec, [place] [address] [address] Dec, Hypothyroidism, unspecified E03.9 [place] [address] [address] Dec, [place] [address] [address] Nov, Peripheral edema R60.9 and A cute pain of left knee M25.562 [facility] [place] [address] [place] [id number] [address] [place] [address] September, [place] [address] [place] [id number] [address] [place] [address] September, Metabolic syndrome E88.81 an d Allergy, subsequent encounter T78.40XD [facility] [place] [address] [facility] [id number] [address] [place] [address] September, Muscle strain T14.8 [place] [address] [place] [id number] [address] [place] [address] Aug, Chest pressure R07.89 ; [place] bolic syndrome E88.81 ; Morbid obesity with BMI of 50.0-59.9, adult Z68.43 ; Esophageal reflux 530.81 and Shortness of breath R06.02 [place] [address] [place] [id number] [address] [place] [address] Aug, [place] [address] [facility] [id number] [address] [place] [address] Aug, [place] [address] [place] [id number] [address] [place] [address] Aug, Hypothyroidism, unspecified E03.9 [place] [address] [place] [id number] [address] [place] [address] Aug, Routine health maintenance Z 00.00 [facility] [place] [address] [facility] [id number] [address] [place] [address] Aug, [place] [address] [place] [id number] [address] [place] [address] Jul, Routine health maintenance Z 00.00 ; Family history of diabetes mellitus Z83.3 ; Family history of cancer Z80.9 and Morbid obesity with BMI of 50.0-59.9, adult Z68.43 [facility] [address] [place] [address] 28 Jul, 2015 Allergic rhinitis J30.9 and Postnasal drip R09.82 [facility] [address] [facility] [id number] [address] [place] [address] 18 Jul, 2015 Influenza J11.1 [facility] [address] [facility] [id number] [address] [place] [address] 08 Jul, 2015 Dysuria R30.0 [facility] [address] [place] [id number] [address] [place] [address] Apr, [place] [address] [address] Mar, Acute upper respiratory infe ction, unspecified J06.9 and Hypothyroidism E03.9 [place] [address] [address] Mar, [place] [address] [address] Feb, Coronary artery disease I25. 10 [place] [address] [address] Feb, Left foot pain M79.672 [place] [address] [place] [id number] [address] [place] [address] Jan, UTI (urinary tract infection ) 599.0 [place] [address] [place] [id number] [address] [place] [address] Jan, Urinary tract infection, sit e not specified 599.0 [place] [address] [place] [id number] [address] [place] [address] Jan, Urinary tract infection, sit e not specified 599.0 [place] [address] [place] [id number] [address] [place] [address] Jan, [place] [address] [place] [id number] [address] [place] [address] Dec, Headache 784.0 [facility] [address] [id number] [address] [place] [address] Dec, Urinary tract infection, sit e not specified 599.0 [facility] [address] [id number] [address] [place] [address] Dec, Urinary tract infection, sit e not specified 599.0 [facility] [address] [facility] [id number] [address] [place] [address] Dec, Urinary tract infection, sit e not specified 599.0 [facility] [address] [facility] [id number] [address] [place] [address] Nov, Unspecified sleep apnea 780. 57 ; Encounter for long-term (current) use of anticoagulants V58.61 ; Routine general medical examination at health care facility V70.0 and Arthritis of both knees 716.96 [facility] [address] [place] [id number] [address] [place] [address] September, Cat bite of hand 882.0 and R ectal bleeding 569.3 [facility] [address] [id number] [address] [place] [address] Aug, [facility] [address] [facility] [id number] [address] [place] [address] Aug, [facility] [address] [facility] [id number] [address] [place] [address] Jul, [facility] [address] [id number] [address] [place] [address] Jul, [facility] [address] [id number] [address] [place] [address] Jul, [facility] [address] [facility] [id number] [address] [place] [address] Jul, [facility] [address] [facility] [id number] [address] [place] [address] Jul, [facility] [address] [id number] [address] [place] [address], [place] [address] Jul, [facility] [address] [id number] [address] [place] [address], [place] [id number] Jul, [facility] [address] [id number] [address] [place] [address], [place] [id number] Jul, [facility] [address] [id number] [address] [place] [address], [place] [id number] May, [facility] [address] [id number] [address] [place] [address], [place] [id number] May, [facility] [address] [id number] [address] [place] [address], [place] [id number] May, [facility] [address] [id number] [address] [place] [address], [place] [address] May, [facility] [address] [id number] [address] [place] [address], [place] [id number] May, [facility] [address] [id number] [address] [place] [address], [place] [id number] May, [facility] [address] [id number] [address] [place] [address], [place] [id number] May, [facility] [address] [id number] [address] [place] [address], [place] [id number] Mar, [facility] [address] [id number] [place] [address], [place] [address] Mar, [facility] [address] [id number] [address] [place] [address], [place] [address] Jan, [facility] [address] [id number] [address] [place] [address], [place] [address] Jan, [facility] [address] [id number] [address] [place] [address], [place] [address] Jan, [facility] [address] [id number] [address] [place] [address], [place] [address] Jan, [facility] [address] [id number] [address] [place] [address], [place] [address] Jan, [facility] [address] [id number] [address] [place] [address], [place] [address] Jan, [facility] [address] [id number] [address] [place] [address], [place] [address] Dec, [facility] [address] [id number] [address] [place] [address], [place] [address] Dec, [facility] [address] [id number] [address] [place] [address], [place] [address] Dec, [facility] [address] [id number] [address] [place] [address], [place] [address] Dec, [facility] [address] [id number] [address] [place] [address], [place] [address] Dec, [facility] [address] [id number] [address] [place] [address], [place] [address] Dec, [facility] [address] [id number] [address] [place] [address], [place] [address] Dec, [facility] [address] [id number] [address] [place] [address], [place] [address] Dec, [facility] [address] [id number] [address] [place] [address], [place] [address] Dec, [facility] [address] [id number] [address] [place] [address], [place] [address] Dec, [facility] [address] [id number] [address] [place] [address], [place] [address] Nov, [facility] [address] [id number] [address] [place] [address], [place] [address] Nov, [facility] [address] [id number] [address] [place] [address], [place] [address] September, [facility] [address] [id number] [address] [place] [address], [place] [address] September, [facility] [address] [id number] [address] [place] [address], [place] [address] September, [facility] [address] [id number] [address] [place] [address], [place] [address] September, [facility] [address] [id number] [address] [place] [address], [place] [address] Aug, [facility] [address] [id number] [address] [place] [address], [place] [address] Aug, [facility] [address] [id number] [address] [place] [address], [place] [address] Aug, [facility] [address] [id number] [address] [place] [address], [place] [address] Aug, [facility] [address] [id number] [address] [place] [address], [place] [address] Aug, [facility] [address] [id number] [address] [place] [address], [place] [address] Aug, [facility] [address] [id number] [address] [place] [address], [place] [address] Aug, [facility] [address] [id number] [address] [place] [address], [place] [address] Aug, [facility] [address] [id number] [address] [place] [address], [place] [address] Aug, [facility] [address] [id number] [address] [place] [address], [place] [address] Aug, [facility] [address] [id number] [address] [place] [address], [place] [address] Aug, [facility] [address] [id number] [address] [place] [address], [place] [address] Aug, [facility] [address] [id number] [address] [place] [address], [place] [address] Jul, [facility] [address] [id number] [address] [place] [address], [place] [address] Jul, [facility] [address] [id number] [address] [place] [address], [place] [address] Jul, [facility] [address] [id number] [address] [place] [address], [place] [address] Jul, [facility] [address] [id number] [address] [place] [address], [place] [address] Jul, [facility] [address] [id number] [address] [place] [address], [place] [address] Jul, [facility] [address] [id number] [address] [place] [address], [place] [address] Jul, [facility] [address] [id number] [address] [place] [address], [place] [address] Jul, [facility] [address] [id number] [address] [place] [address], [place] [address] Jul, [facility] [address] [id number] [address] [place] [address], [place] [address] Jul, [facility] [address] [id number] [address] [place] [address], [place] [address] Jun, [facility] [address] [id number] [address] [place] [address], [place] [address] Jun, [facility] [address] [id number] [address] [place] [address], [place] [address] Jun, [facility] [address] [id number] [address] [place] [address], [place] [address] Jun, [facility] [address] [id number] [address] [place] [address], [place] [address] Jun, [facility] [address] [id number] [address] [place] [address], [place] [address] Jun, [facility] [address] [id number] [address] [place] [address], [place] [address] Jun, [facility] [address] [id number] [address] [place] [address], [place] [address] Jun, [facility] [address] [id number] [address] [place] [address], [place] [address] Jun, [facility] [address] [id number] [address] [place] [address], [place] [address] Jun, [facility] [address] [id number] [address] [place] [address], [place] [address] Jun, [facility] [address] [id number] [address] [place] [address], [place] [address] Jun, [facility] [address] [id number] [address] [place] [address], [place] [address] May, [facility] [address] [id number] [address] [place] [address], [place] [address] May, [facility] [address] [id number] [address] [place] [address], [place] [address] May, [facility] [address] [id number] [address] [place] [address], [place] [address] May, [facility] [address] [id number] [address] [place] [address], [place] [address] May, [facility] [address] [id number] [address] [place] [address], [place] [address] May, [facility] [address] [id number] [address] [place] [address], [place] [address] May, [facility] [address] [id number] [address] [place] [address], [place] [address] May, [facility] [address] [id number] [address] [place] [address], [place] [address] May, [facility] [address] [id number] [address] [place] [address], [place] [address] May, [facility] [address] [id number] [address] [place] [address], [place] [address] May, [facility] [address] [id number] [address] [place] [address], [place] [address] May, [facility] [address] [id number] [address] [place] [address], [place] [address] May, [facility] [address] [id number] [address] [place] [address], [place] [address] May, [facility] [address] [id number] [address] [place] [address], [place] [address] May, [facility] [address] [id number] [address] [place] [address], [place] [address] Apr, [facility] [address] [id number] [address] [place] [address], [place] [address] Apr, [facility] [address] [id number] [address] [place] [address], [place] [address] Apr, [facility] [address] [id number] [address] [place] [address], [place] [address] Apr, [facility] [address] [id number] [address] [place] [address], [place] [address] Mar, [facility] [address] [id number] [address] [place] [address], [place] [address] Mar, [facility] [address] [id number] [address] [place] [address], [place] [address] Mar, [facility] [address] [id number] [address] [place] [address], [place] [address] Mar, [facility] [address] [id number] [address] [place] [address], [place] [address] Mar, [facility] [address] [id number] [address] [place] [address], [place] [address] Mar, [facility] [address] [id number] [address] [place] [address], [place] [address] 07 Mar, 2013 [facility] [address] [id number] [address] [place] [address], [place] [address] Mar, [facility] [address] [id number] [address] [place] [address], [place] [address] Mar, [facility] [address] [id number] [address] [place] [address], [place] [address] Mar, [facility] [address] [id number] [address] [place] [address], [place] [address] Mar, [facility] [address] [id number] [address] [place] [address], [place] [address] Mar, [facility] [address] [id number] [address] [place] [address], [place] [address] Feb, [facility] [address] [id number] [address] [place] [address], [place] [address] 18 Jan, 2013 [facility] [address] [id number] [address] [place] [address], [place] [address] 17 Jan, 2013 [facility] [address] [id number] [address] [place] [address], [place] [address] 06 Jan, 2013 [facility] [address] [id number] [address] [place] [address], [place] [address] 04 Jan, 2013 [facility] [address] [id number] [address] [place] [address], [place] [address] 03 Jan, 2013 [facility] [address] [id number] [address] [place] [address], [place] [address] Dec, [facility] [address] [id number] [address] [place] [address], [place] [address] Dec, [facility] [address] [id number] [address] [place] [address], [place] [address] 18 Dec, 2012 [facility] [address] [id number] [address] [place] [address], [place] [address] 16 Dec, 2012 [facility] [address] [id number] [facility] [place] [address] Dec, [facility] [address] [id number] [address] [place] [address], [place] [address] Dec, [facility] [address] [id number] [address] [place] [address], [place] [address] Dec, [facility] [address] [id number] [address] [place] [address], [place] [address] Dec, [facility] [address] [id number] [address] [place] [address], [place] [address] Nov, [facility] [address] [id number] [address] [place] [address], [place] [address] Nov, [facility] [address] [id number] [address] [place] [address], [place] [address] Nov, [facility] [address] [id number] [address] [place] [address], [place] [address] Nov, [facility] [address] [id number] [address] [place] [address], [place] [address] Nov, [facility] [address] [id number] [address] [place] [address], [place] [address] Nov, [facility] [address] [id number] [address] [place] [address], [place] [address] Oct, [facility] [place] [address] [id number] [id number] Oct, [facility] [place] [address] [id number] [place] [id number] Oct, [facility] [place] [address] [id number] [place] [id number] Oct, [facility] [place] [address] [id number] [place] [id number] Oct, [facility] [address] [id number] [address] [place] [address], [place] [address] Oct, [facility] [address] [id number] [address] [place] [address], [place] [address] 12 Oct, 2012 [facility] [address] [id number] [address] [place] [address], [place] [address] 12 Oct, 2012 [facility] [address] [id number] [address] [place] [address], [place] [address] Oct, [facility] [address] [id number] [address] [place] [address], [place] [address] Oct, [facility] [address] [id number] [address] [place] [address], [place] [address] 05 Oct, 2012 [facility] [address] [id number] [address] [place] [address], [place] [address] September, [facility] [address] [id number] [address] [place] [address], [place] [address] Aug, [facility] [address] [id number] [address] [place] [address], [place] [address] Aug, [facility] [address] [id number] [address] [place] [address], [place] [address] Aug, [facility] [address] [id number] [address] [place] [address], [place] [address] Aug, [facility] [address] [id number] [address] [place] [address], [place] [address] Jul, [facility] [address] [id number] [address] [place] [address], [place] [address] Jul, [facility] [address] [id number] [address] [place] [address], [place] [address] Jul, [facility] [address] [id number] [address] [place] [address], [place] [address] 05 Jul, 2012 [facility] [address] [id number] [address] [place] [address], [place] [address] Jul, [facility] [address] [id number] [address] [place] [address], [place] [address] Jun, [facility] [address] [id number] [address] [place] [address], [place] [address] 13 Jun, 2012 [facility] [address] [id number] [address] [place] [address], [place] [address] Jun, [facility] [address] [id number] [address] [place] [address], [place] [address] May, [facility] [address] [id number] [address] [place] [address], [place] [address] 24 May, [address] [facility] [address] [id number] [address] [place] [address], [place] [address] May, [facility] [address] [id number] [address] [place] [address], [place] [address] May, [facility] [address] [id number] [address] [place] [address], [place] [address] May, [facility] [address] [id number] [address] [place] [address], [place] [address] May, [facility] [address] [id number] [address] [place] [address], [place] [address] 18 Apr, [address] [facility] [address] [id number] [address] [place] [address], [place] [address] 18 Apr, [address] [facility] [address] [id number] [address] [place] [address], [place] [address] 13 Apr, [address] [facility] [address] [id number] [address] [place] [address], [place] [address] 13 Apr, [address] [facility] [address] [id number] [address] [place] [address], [place] [address] Apr, [facility] [address] [id number] [address] [place] [address], [place] [address] Apr, [facility] [address] [id number] [address] [place] [address], [place] [address] 11 Apr, 2012 [facility] [address] [id number] [address] [place] [address], [place] [address] Mar, [facility] [address] [id number] [address] [place] [address], [place] [address] Mar, [facility] [address] [id number] [address] [place] [address], [place] [address] Mar, [facility] [address] [id number] [address] [place] [address], [place] [address] Mar, [facility] [address] [id number] [address] [place] [address], [place] [address] Jan, [facility] [address] [id number] [address] [place] [address], [place] [address] Jan, [facility] [address] [id number] [address] [place] [address], [place] [address] Jan, [facility] [address] [id number] [address] [place] [address], [place] [address] Jan, [facility] [address] [id number] [place] [id number] Dec, [facility] [address] [id number] [address] [place] [address], [place] [address] Dec, [facility] [address] [id number] [place] [id number] Dec, [facility] [address] [id number] [address] [place] [address], [place] [address] Dec, [facility] [address] [id number] [address] [place] [address], [place] [address] Dec, [facility] [address] [id number] [address] [place] [address], [place] [address] Dec, [facility] [address] [id number] [address] [place] [address], [place] [address] Nov, [facility] [address] [id number] [address] [place] [address], [place] [address] Nov, [facility] [address] [id number] [address] [place] [address], [place] [address] Nov, IMMUNIZATIONS No Known Immunizations SOCIAL HISTORY [...] asthma(493.90) Medical History Near syncope Medical History [facility] current use of anticoagulant Medical History Renal [...] Stent placed 08/19/2017 Hospitalization History Syncope- [facility] 12/2017 Hospitalization History heart cath ( 06/23/18-06/25/2018) Hospitalization History heart problem, overnight stay 9
--- OUTSIDE RECORDS SUMMARY | 2019-11-03 19:20 | XMS REPORT ---
Author Author Anca Lucero Doctor Organization [facility] Address Unknown Phone Unavailable Care Team Providers Care Barrel Polisher Inside Name Role Phone Migration, Doctor Unavailable Unavailable PROBLEMS Type Condition ICD9-CM Code [id number] Code Onset Dates Condition S tatus SNOMED Code Problem Esophageal reflux K21.9 Active 24 8873435 Problem Dyslipidemia E78.5 12 Oct, 2017 Active 3709 28764 Problem Unspecified hypothyroidism E03.9 Act hernesto 13245862 Problem Generalized anxiety disorder F41.1 Apr, 200 8 Active 84798509 Problem Shortness of breath R06.02 Apr, Active 005375545 Problem Pulmonary embolus I26.99 13 Oct, 2011 Active 44055811 Problem Nonintractable migraine G43.009 Oct, Act hernesto 518343380 Problem Pre-diabetes R73.03 Active 4475586 02 Problem Morbid obesity with BMI of 50.0-59.9, adult Z68.43 Active 191416813 Problem Hypothyroidism E03.9 Active 32494 008 Problem Morbid obesity E66.01 Active 77630 6002 Problem Unspecified sleep apnea G47.30 Active 85247389 Problem Personal history of pulmonary embolism Z86.711 Active 223483230 Problem Osteoarthritis of right knee M17.11 13 May, 201 0 Active 346775149 Problem Renal stones N20.0 Active 8157937 7 Problem Coronary artery disease I25.10 Active 42849841 Problem Hyperlipidemia LDL goal <70 E78.5 Ac tive 92058695 Problem Migraine with aura and without status migrainosu s, not intractable G43.109 Active 4897735 ALLERGIES No Information ENCOUNTERS Encounter Location Date Diagnosis [facility] [address] [facility] [id number] [address] [place] [address] September, [facility] [address] [facility] [id number] [address] [place] [address] Aug, [facility] [address] [facility] [id number] [address] [place] [address] Aug, History of recurrent UTIs Z8 7.440 and Personal history of pulmonary embolism Z86.711 [facility] [address] [id number] [address] [place] [address] Jul, History of recurrent UTIs Z8 7.440 [facility] [address] [facility] [id number] [address] [place] [address] 07 Jun, 2019 Personal history of pulmonar y embolism Z86.711 [facility] [address] [id number] [address] [place] [address] 07 Jun, 2019 Personal history of pulmonar y embolism Z86.711 [place] [address] 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 [id number] [address] [place] [address] Apr, Non-recurrent acute suppurat hernesto otitis media of both ears without spontaneous rupture of tympanic membranes H66.003 [place] [address] [facility] [id number] [address] [place] [address] Feb, Pre-diabetes R73.03 and Hype rlipidemia LDL goal <70 E78.5 [facility] [address] [id number] [address] [place] [address] Feb, [facility] [address] [id number] [address] [place] [address] Feb, [facility] [address] [facility] [id number] [address] [place] [phone] Jan, [facility] [address] [facility] [id number] [address] [place] [address] Jan, [facility] [address] [place] [address] 18 Jan, 2019 Encounter for Medicare annua l wellness exam Z00.00 ; Hyperlipidemia LDL goal <70 E78.5 ; Coronary artery disease I25.10 ; Hypothyroidism E03.9 ; Osteoarthritis of right knee M17.11 ; Morbid obesity with BMI of 50.0-59.9, adult Z68.43 and Esophageal reflux K21.9 [facility] [address] [facility] [id number] [address] [place] [address] 13 Jan, 2019 Dysuria R30.0 and Hematuria, unspecified type R31.9 [place] [address] [address] Jan, Hematuria, unspecified type R31.9 [place] [address] [place] [id number] [place] [address] Dec, Hematuria, unspecified type R31.9 [place] [address] [place] [id number] [address] [place] [address] Nov, Hematuria, unspecified type R31.[id number] [place] [address] Nov, Other microscopic hematuria R31.29 [place] [address] [facility] [id number] [address] [place] [address] Nov, Vaginal gena B37.3 ; Othe r microscopic hematuria R31.29 and Morbid obesity E66.01 [facility] [address] [facility] [id number] [address] [place] [address] Nov, [place] [address] [facility] [id number] [address] [place] [address] Nov, [facility] [address] [facility] [id number] [address] [place] [address] Nov, UTI symptoms R39.9 and Morbi d obesity E66.01 [place] [address] [facility] [id number] [address] [place] [address] Nov, [place] [address] [place] [address] September, [place] [address] [address] September, [place] [address] [address] Aug, Right foot pain M79.671 and Morbid obesity E66.01 [place] [address] [address] Jul, Right foot pain M79.671 and Morbid obesity E66.01 [facility] [place] [address] [address] Jul, Injury of right foot, initia l encounter S99.921A and Morbid obesity E66.01 [place] [address] [address] Jul, Recurrent syncope R55 and Mo rbid obesity E66.01 [place] [address] [address] Jul, [place] [address] [address] Jun, Hematuria, unspecified type R31.9 and BMI 50.0-59.9, adult Z68.43 [place] [address] [place] [id number] [address] [place] [address] 07 Jun, [id number] [place] [address] 04 Jun, 2018 alf current use of ant icoagulant Z79.01 [facility] [place] [address] [place] [address] May, Ankle pain, right M25.571 an d BMI 50.0-59.9, adult Z68.43 [place] [address] [address] May, [facility] [address] [address] May, [facility] [address] [address] Apr, [facility] [address] [address] Apr, [facility] [address] [address] Apr, [facility] [address] [address] Apr, BMI 50.0-59.9, adult Z68.43 and Weakness R53.1 [facility] [address] [address] Apr, [facility] [address] [address] Apr, Dysuria R30.0 ; Hematuria R3 1.9 ; Renal lithiasis N20.0 and BMI 50.0-59.9, adult Z68.43 [place] [address] [address] Apr, [place] [address] [address] Apr, [facility] [address] [address] Apr, Hypothyroidism E03.9 [facility] [address] [address] Apr, Burning with urination R30.0 ; Type 2 diabetes mellitus with diabetic neuropathic arthropathy, 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 ; Acute bilateral low back pain without sciatica M54.5 and BMI 50.0- 59.9, adult Z68.43 [facility] [address] [place] [address] [place] [address] Mar, Hypothyroidism E03.9 [facility] [address] [address] Feb, [facility] WALK IN [facility] [address] [address] 15 Jan, 2018 [place] [address] [address] 07 Jan, 2018 Acute non-recurrent maxillar y sinusitis J01.00 and BMI 50.0-59.9, adult Z68.43 [facility] WALK IN [place] [address] [address] 04 Jan, 2018 Congestion of upper respirat ory tract J98.8 and BMI 50.0-59.9, adult Z68.43 [place] [address] [address] Dec, Type 2 diabetes mellitus wit h diabetic neuropathic arthropathy, 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 ; Morbid obesity with BMI of 50.0-59.9, adult Z68.43 ; Hypothyroidism E03.9 ; Coronary artery disease I25.10 ; Hyperlipidemia LDL goal <70 E78.5 ; Right lower quadrant abdominal pain R10.31 and Acute cystitis with hematuria N30.01 [facility] IN [facility] [address] [address] Dec, Migraine with aura and witho ut status migrainosus, not intractable G43.109 ; Dehydration symptoms R63.8 and BMI 50.0-59.9, adult Z68.43 [place] [address] [address] Oct, [facility] [address] [address] Oct, [place] [address] [address] Oct, [place] [address] [address] September, [place] [address] [address] September, Type 2 diabetes mellitus wit h diabetic neuropathic arthropathy, 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 ; Hyperlipidemia, unspecified hyperlipidemia type E78.5 ; Personal history of pulmonary embolism Z86.711 ; Coronary artery disease I25.10 and Hypothyroidism E03.9 [place] [address] [address] September, [place] [address] [address] Aug, Type 2 diabetes mellitus wit h [...] without aura and with status migrainosus G43.011 [place] [address] [address] Aug, [place] [address] [address] Aug, [place] [address] [address] Jul, Renal stones N20.0 [facility] WALK IN [facility] [address] [address] Jun, Back pain M54.9 ; Kidney sto radha N20.0 and BMI 50.0-59.9, adult Z68.43 [place] [address] [address] Jun, [place] [address] [place] [id number] [address] [place] [address] 18 Apr, 2017 [place] [address] [address] Apr, [place] [address] [place] [id number] [place] [address] Apr, Right foot pain M79.671 ; Ac ronnie gout involving toe of right foot, 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 and Arthritis M19.90 [place] [address] [address] 06 Apr, 2017 Gastroesophageal reflux dise ase without esophagitis K21.9 [place] [address] [place] [id number] [place] [address] 16 Mar, 2017 Hypothyroidism, unspecified E03.9 [place] [address] [address] Feb, [place] [address] [address] 25 Jan, 2017 Cervicalgia of occipito-atla nto-axial region M54.2 and Persistent headaches R51 [place] [address] [place] [id number] [place] [address] 20 Jan, 2017 [place] [address] [address] 12 Jan, 2017 Intractable migraine without aura and with status migrainosus G43.011 ; Cervical spine pain M54.2 ; Hyperlipidemia, unspecified hyperlipidemia type E78.5 ; Hypothyroidism E03.9 and Metabolic syndrome E88.81 [place] [address] [address] 11 Jan, 2017 Hypothyroidism, unspecified E03.9 [place] [address] [place] [id number] [place] [address] Dec, Hypothyroidism, unspecified E03.9 [place] [address] [place] [address] 14 Dec, 2016 Hypothyroidism E03.9 [place] [address] [address] Nov, Laceration of left great toe w/o foreign body w/o damage to nail, initial encounter S91.112A [facility] [address] [address] Oct, Pain in left knee M25.562 an d Arthritis M19.90 [place] [address] [address] Oct, Hypothyroidism, unspecified E03.9 and Hyperlipidemia, unspecified hyperlipidemia type E78.5 [place] [address] [address] Oct, Gastroesophageal reflux dise ase without esophagitis K21.[address] [address] 14 Oct, 2016 Metabolic syndrome E88.81 ; Personal history of pulmonary embolism Z86.711 ; Other specified hypothyroidism E03.8 and Hyperlipidemia, unspecified hyperlipidemia type E78.5 [place] [address] [address] 13 Oct, 2016 Personal history of pulmonar y embolism Z86.711 ; Dysuria R30.0 ; Metabolic syndrome E88.81 ; Other specified hypothyroidism E03.8 ; Hyperlipidemia, unspecified hyperlipidemia type E78.5 and Morbid obesity with BMI of 50.0-59.9, adult Z68.43 [place] [address] [address] September, [facility] [address] [address] September, Wrist pain, left M25.532 and Acute pain of left knee M25.[address] [address] Jul, Dysuria R30.0 [place] [address] [address] Jul, Dysuria R30.0 [place] [address] [address] Jul, Left lower quadrant pain R10 .[address] [address] Jul, [place] [address] [address] Jul, Coronary artery disease I25. 10 ; Family history of diabetes mellitus Z83.3 ; Morbid obesity with BMI of 50.0-59.9, adult Z68.43 ; Metabolic syndrome E88.81 ; Personal history of pulmonary embolism Z86.711 ; Gastroesophageal reflux disease without esophagitis K21.9 ; Hypothyroidism, unspecified E03.9 ; Hyperlipidemia, unspecified hyperlipidemia type E78.5 and Left lower quadrant pain R10.32 [facility] [address] [address] Jul, [facility] [address] [address] Jul, Morbid obesity with BMI of 5 0.0-59.9, adult Z68.43 [facility] [address] [address] Jul, Generalized abdominal pain R 10.84 [facility] [address] [address] Jun, Muscle strain of right upper back, initial encounter S29.012A [facility] [address] [address] May, Foreign body (FB) in soft ti ssue M79.[address] [address] Mar, Hypothyroidism, unspecified E03.9 and Arthritis M19.90 [facility] [address] [place] [id number] [place] [address] 13 Feb, 2016 Coronary artery disease I25. 10 ; Morbid obesity with BMI of 50.0- 59.9, adult Z68.43 ; Metabolic syndrome E88.81 ; Gastroesophageal reflux disease without esophagitis K21.9 ; Hypothyroidism, unspecified E03.9 ; Personal history of pulmonary embolism Z86.711 and Hyperlipidemia, unspecified hyperlipidemia type E78.5 [place] [address] [place] [id number] [place] [address] Feb, [facility] WALK IN [facility] [address] [place] [id number] [place] [address] Jan, Acute right-sided thoracic b ack pain M54.6 [place] [address] [place] [id number] [place] [address] Jan, Acute pain of left knee M25. 562 [place] [address] [address] Dec, Dysuria R30.0 ; Metabolic sy ndrome E88.81 ; Acute pain of left knee M25.562 ; Acute cystitis with hematuria N30.01 and Acute left eye pain H57.12 [place] [address] [place] [id number] [place] [address] Dec, [place] [address] [place] [id number] [place] [address] Dec, [place] [address] [place] [id number] [place] [address] Dec, Hypothyroidism, unspecified E03.9 [place] [address] [place] [id number] [place] [address] Dec, [place] [address] [place] [id number] [address] [place] [address] Nov, Peripheral edema R60.9 and A cute pain of left knee M25.562 [facility] WALK IN [facility] [address] [facility] [id number] [address] [place] [address] September, [place] [address] [place] [id number] [place] [address] September, Metabolic syndrome E88.81 an d Allergy, subsequent encounter T78.40XD [facility] WALK IN [place] [address] [place] [id number] [place] [address] September, Muscle strain T14.8 [place] [address] [facility] [id number] [address] [place] [address] Aug, Chest pressure R07.89 ; [place] bolic syndrome E88.81 ; Morbid obesity with BMI of 50.0-59.9, adult Z68.43 ; Esophageal reflux 530.81 and Shortness of breath R06.02 [place] [address] [place] [id number] [place] [address] Aug, [place] [address] [place] [id number] [place] [address] Aug, [place] [address] [place] [id number] [place] [address] Aug, Hypothyroidism, unspecified E03.9 [place] [address] [facility] [id number] [address] [place] [address] Aug, Routine health maintenance Z 00.00 [facility] WALK IN [place] [id number] [place] [id number] [place] [address] Aug, [place] [address] [place] [id number] [place] [address] Jul, Routine health maintenance Z 00.00 ; Family history of diabetes mellitus Z83.3 ; Family history of cancer Z80.9 and Morbid obesity with BMI of 50.0-59.9, adult Z68.43 [facility] WALK IN [facility] [address] [facility] [id number] [address] [place] [address] Jul, Allergic rhinitis J30.9 and Postnasal drip R09.82 [facility] [address] [place] [id number] [address] [place] [address] 18 Jul, 2015 Influenza J11.1 [facility] [address] [place] [id number] [address] [place] [address] 08 Jul, 2015 Dysuria R30.0 [facility] [address] [address] Apr, [facility] [address] [address] Mar, Acute upper respiratory infe ction, unspecified J06.9 and Hypothyroidism E03.9 [place] [address] [address] Mar, [facility] [address] [address] Feb, Coronary artery disease I25. 10 [facility] [address] [address] 16 Feb, 2015 Left foot pain M79.672 [place] [address] [address] Jan, UTI (urinary tract infection ) 599.0 [facility] [address] [place] [id number] [address] [place] [address] Jan, Urinary tract infection, sit e not specified 599.0 [facility] [address] [place] [id number] [address] [place] [address] Jan, Urinary tract infection, sit e not specified 599.0 [place] [address] [address] Jan, [place] [address] [place] [id number] [address] [place] [address] Dec, Headache 784.0 [facility] [address] [address] Dec, Urinary tract infection, sit e not specified 599.0 [facility] [address] [id number] [address] [place] [address] Dec, Urinary tract infection, sit e not specified 599.0 [facility] [address] [id number] [address] [place] [address] Dec, Urinary tract infection, sit e not specified 599.0 [facility] [address] [id number] [address] [place] [address] Nov, Unspecified sleep apnea 780. 57 ; Encounter for long-term (current) use of anticoagulants V58.61 ; Routine general medical examination at health care facility V70.0 and Arthritis of both knees 716.96 [facility] [address] [facility] [id number] [address] [place] [address] September, Cat bite of hand 882.0 and R ectal bleeding 569.3 [facility] [address] [facility] [id number] [address] [place] [address] Aug, [facility] [address] [id number] [address] [place] [address] Aug, [facility] [address] [facility] [id number] [address] [place] [address] Jul, [facility] [address] [id number] [address] [place] [address] Jul, [facility] [address] [id number] [address] [place] [address] Jul, [facility] [address] [id number] [address] [place] [phone] Jul, [facility] [address] [facility] [id number] [address] [place] [id number] Jul, [facility] [address] [facility] [id number] [address] [place] [id number] Jul, [facility] [address] [id number] [address] [place] [address], [place] [address] Jul, [facility] [address] [id number] [address] [place] [address], [place] [address] Jul, [facility] [address] [id number] [address] [place] [address], [place] [address] May, [facility] [address] [id number] [address] [place] [address], [place] [address] May, [facility] [address] [id number] [address] [place] [address], [place] [address] May, [facility] [address] [id number] [address] [place] [address], [place] [address] May, [facility] [address] [id number] [address] [place] [address], [place] [address] May, [facility] [address] [id number] [address] [place] [address], [place] [address] May, [facility] [address] [id number] [address] [place] [address], [place] [address] May, [facility] [address] [id number] [address] [place] [address], [place] [address] Mar, [facility] [address] [id number] [address] [place] [address], [place] [address] 03 Mar, 2014 [facility] [address] [id number] [address] [place] [address], [place] [address] 08 Sep, 2013 [facility] [address] [id number] [address] [place] [address], [place] [address] 08 Sep, 2013 [facility] [address] [id number] [address] [place] [address], [place] [address] 08 Sep, 2013 [facility] [address] [id number] [address] [place] [address], [place] [address] 08 Sep, 2013 [facility] [address] [id number] [address] [place] [address], [place] [address] Jan, [facility] [address] [id number] [address] [place] [address], [place] [address] Jan, [facility] [address] [id number] [address] [place] [address], [place] [address] Dec, [facility] [address] [id number] [address] [place] [address], [place] [address] Dec, [facility] [address] [id number] [address] [place] [address], [place] [address] Dec, [facility] [address] [id number] [address] [place] [address], [place] [address] Dec, [facility] [address] [id number] [address] [place] [address], [place] [address] Dec, [facility] [address] [id number] [address] [place] [address], [place] [address] Dec, [facility] [address] [id number] [address] [place] [address], [place] [address] Dec, [facility] [address] [id number] [address] [place] [address], [place] [address] Dec, [facility] [address] [id number] [address] [place] [address], [place] [address] Dec, [facility] [address] [id number] [address] [place] [address], [place] [address] Dec, [facility] [address] [id number] [address] [place] [address], [place] [address] Nov, [facility] [address] [id number] [address] [place] [address], [place] [address] Nov, [facility] [address] [id number] [address] [place] [address], [place] [address] September, [facility] [address] [id number] [address] [place] [address], [place] [address] September, [facility] [address] [id number] [address] [place] [address], [place] [address] September, [facility] [address] [id number] [address] [place] [address], [place] [address] September, [facility] [address] [id number] [address] [place] [address], [place] [address] Aug, [facility] [address] [id number] [address] [place] [address], [place] [address] Aug, [facility] [address] [id number] [address] [place] [address], [place] [address] Aug, [facility] [address] [id number] [address] [place] [address], [place] [address] Aug, [facility] [address] [id number] [address] [place] [address], [place] [address] Aug, [facility] [address] [id number] [address] [place] [address], [place] [address] Aug, [facility] [address] [id number] [address] [place] [address], [place] [address] Aug, [facility] [address] [id number] [address] [place] [address], [place] [address] Aug, [facility] [address] [id number] [address] [place] [address], [place] [address] Aug, [facility] [address] [id number] [address] [place] [address], [place] [address] Aug, [facility] [address] [id number] [address] [place] [address], [place] [address] Aug, [facility] [address] [id number] [address] [place] [address], [place] [address] Aug, [facility] [address] [id number] [address] [place] [address], [place] [address] Jul, [facility] [address] [id number] [address] [place] [address], [place] [address] Jul, [facility] [address] [id number] [address] [place] [address], [place] [address] 19 Jul, 2013 [facility] [address] [id number] [address] [place] [address], [place] [address] Jul, [facility] [address] [id number] [address] [place] [address], [place] [address] 06 Jul, 2013 [facility] [address] [id number] [address] [place] [address], [place] [address] Jul, [facility] [address] [id number] [address] [place] [address], [place] [address] 05 Jul, 2013 [facility] [address] [id number] [address] [place] [address], [place] [address] 05 Jul, 2013 [facility] [address] [id number] [address] [place] [address], [place] [address] Jul, [facility] [address] [id number] [address] [place] [address], [place] [address] Jul, [facility] [address] [id number] [address] [place] [address], [place] [address] Jun, [facility] [address] [id number] [address] [place] [address], [place] [address] 28 Jun, 2013 [facility] [address] [id number] [address] [place] [address], [place] [address] 17 Jun, 2013 [facility] [address] [id number] [address] [place] [address], [place] [address] 17 Jun, 2013 [facility] [address] [id number] [address] [place] [address], [place] [address] Jun, [facility] [address] [id number] [address] [place] [address], [place] [address] Jun, [facility] [address] [id number] [address] [place] [address], [place] [address] Jun, [facility] [address] [id number] [address] [place] [address], [place] [address] Jun, [facility] [address] [id number] [address] [place] [address], [place] [address] Jun, [facility] [address] [id number] [address] [place] [address], [place] [address] Jun, [facility] [address] [id number] [address] [place] [address], [place] [address] Jun, [facility] [address] [id number] [address] [place] [address], [place] [address] Jun, [facility] [address] [id number] [address] [place] [address], [place] [address] May, [facility] [address] [id number] [address] [place] [address], [place] [address] May, [facility] [address] [id number] [address] [place] [address], [place] [address] May, [facility] [address] [id number] [address] [place] [address], [place] [address] May, [facility] [address] [id number] [address] [place] [address], [place] [address] May, [facility] [address] [id number] [address] [place] [address], [place] [address] May, [facility] [address] [id number] [address] [place] [address], [place] [address] May, [facility] [address] [id number] [address] [place] [address] May, [facility] [address] [id number] [address] [place] [address] May, [facility] [address] [id number] [address] [place] [address], [place] [address] May, [facility] [address] [id number] [address] [place] [address] May, [facility] [address] [id number] [address] [place] [address], [place] [address] May, [facility] [address] [id number] [address] [place] [address], [place] [address] May, [facility] [address] [id number] [address] [place] [address], [place] [address] May, [facility] [address] [id number] [address] [place] [address], [place] [address] May, [facility] [address] [id number] [address] [place] [address], [place] [address] Apr, [facility] [address] [id number] [address] [place] [address], [place] [address] Apr, [facility] [address] [id number] [address] [place] [address], [place] [address] Apr, [facility] [address] [id number] [address] [place] [address], [place] [address] Apr, [facility] [address] [id number] [address] [place] [address], [place] [address] Mar, [facility] [address] [id number] [address] [place] [address], [place] [address] Mar, [facility] [address] [id number] [address] [place] [address], [place] [address] Mar, [facility] [address] [id number] [address] [place] [address], [place] [address] Mar, [facility] [address] [id number] [address] [place] [address], [place] [address] Mar, [facility] [address] [id number] [address] [place] [address], [place] [address] Mar, [facility] [address] [id number] [address] [place] [address], [place] [address] Mar, [facility] [address] [id number] [address] [place] [address], [place] [address] Mar, [facility] [address] [id number] [address] [place] [address], [place] [address] Mar, [facility] [address] [id number] [address] [place] [address], [place] [address] Mar, [facility] [address] [id number] [address] [place] [address], [place] [address] Mar, [facility] [address] [id number] [address] [place] [address], [place] [address] Mar, [facility] [address] [id number] [address] [place] [address], [place] [address] Feb, [facility] [address] [id number] [address] [place] [address], [place] [address] 18 Jan, 2013 [facility] [address] [id number] [address] [place] [address], [place] [address] 17 Jan, 2012 [facility] [address] [id number] [address] [place] [address], [place] [address] 06 Jan, 2012 [facility] [address] [id number] [address] [place] [address], [place] [address] 04 Jan, 2013 [facility] [address] [id number] [address] [place] [address], [place] [address] 03 Jan, 2013 [facility] [address] [id number] [address] [place] [address], [place] [address] 26 Dec, 2012 [facility] [address] [id number] [address] [place] [address], [place] [address] Dec, [facility] [address] [id number] [address] [place] [address], [place] [address] 18 Dec, 2012 [facility] [address] [id number] [address] [place] [address], [place] [address] 16 Dec, 2012 [facility] [address] [id number] [address] [place] [address], [place] [address] Dec, [facility] [address] [id number] [address] [place] [address], [place] [address] Dec, [facility] [address] [id number] [address] [place] [address], [place] [address] Dec, [facility] [address] [id number] [address] [place] [address], [place] [address] Dec, [facility] [address] [id number] [address] [place] [address], [place] [address] Nov, [facility] [address] [id number] [address] [place] [address], [place] [address] Nov, [facility] [address] [id number] [address] [place] [address], [place] [address] Nov, [facility] [address] [id number] [address] [place] [address], [place] [address] Nov, [facility] [address] [id number] [address] [place] [address], [place] [address] Nov, [facility] [address] [id number] [address] [place] [address], [place] [address] Nov, [facility] [address] [id number] [address] [place] [address], [place] [address] Oct, [facility] [address] [id number] [id number] Oct, [facility] [place] [address] [id number] [place] [id number] Oct, [facility] [place] [address] [id number] [place] [id number] Oct, [facility] [place] [address] [id number] [place] [id number] Oct, [facility] [address] [id number] [address] [place] [address], [place] [address] Oct, [facility] [address] [id number] [address] [place] [address], [place] [address] Oct, [facility] [address] [id number] [address] [place] [address], [place] [address] 12 Oct, 2012 [facility] [address] [id number] [address] [place] [address], [place] [address] Oct, [facility] [address] [id number] [address] [place] [address], [place] [address] Oct, [facility] [address] [id number] [address] [place] [address], [place] [address] Oct, [facility] [address] [id number] [address] [place] [address], [place] [address] September, [facility] [address] [id number] [address] [place] [address], [place] [address] Aug, [facility] [address] [id number] [address] [place] [address], [place] [address] Aug, [facility] [address] [id number] [address] [place] [address], [place] [address] Aug, [facility] [address] [id number] [address] [place] [address], [place] [address] Aug, [facility] [address] [id number] [address] [place] [address], [place] [address] 24 Jul, 2012 [facility] [address] [id number] [address] [place] [address], [place] [address] Jul, [facility] [address] [id number] [address] [place] [address], [place] [address] Jul, [facility] [address] [id number] [address] [place] [address], [place] [address] 05 Jul, 2012 [facility] [address] [id number] [address] [place] [address], [place] [address] Jul, [facility] [address] [id number] [address] [place] [address], [place] [address] Jun, [facility] [address] [id number] [address] [place] [address], [place] [address] Jun, [facility] [address] [id number] [address] [place] [address], [place] [address] 11 Jun, 2012 [facility] [address] [id number] [address] [place] [address], [place] [address] May, [facility] [address] [id number] [address] [place] [address], [place] [address] 24 May, 2012 [facility] [address] [id number] [address] [place] [address], [place] [address] 14 May, 2012 [facility] [address] [id number] [address] [place] [address], [place] [address] May, [facility] [address] [id number] [address] [place] [address], [place] [address] May, [facility] [address] [id number] [address] [place] [address], [place] [address] May, [facility] [address] [id number] [address] [place] [address], [place] [address] 18 Apr, 2012 [facility] [address] [id number] [address] [place] [address], [place] [address] 18 Apr, 2012 [facility] [address] [id number] [address] [place] [address], [place] [address] 13 Apr, 2012 [facility] [address] [id number] [address] [place] [address], [place] [address] 13 Apr, 2012 [facility] [address] [id number] [address] [place] [address], [place] [address] 13 Apr, 2012 [facility] [address] [id number] [address] [place] [address], [place] [address] Apr, [facility] [address] [id number] [address] [place] [address], [place] [address] Apr, [facility] [address] [id number] [address] [place] [address], [place] [address] 12 Mar, 2012 [facility] [address] [id number] [address] [place] [id number] Mar, [facility] [address] [id number] [address] [place] [id number] Mar, [facility] [address] [id number] [address] [place] [id number] Mar, [facility] [address] [id number] [address] [place] [id number] Jan, [facility] [address] [id number] [address] [place] [id number] Jan, [facility] [address] [id number] [address] [place] [id number] Jan, [facility] [address] [id number] [address] [place] [id number] Jan, [facility] [address] [id number] [place] [id number] Dec, [facility] [address] [id number] [address] [place] [id number] Dec, [facility] [address] [id number] [place] [id number] Dec, [facility] [address] [id number] [address] [place] [id number] Dec, [facility] [address] [id number] [address] [place] [id number] Dec, [facility] [address] [id number] [address] [place] [phone] Dec, [facility] [address] [id number] [address] [place] [phone] Nov, [facility] [address] [id number] [address] [place] [phone] Nov, [facility] [address] [id number] [address] [place] [phone] Nov, IMMUNIZATIONS No Known Immunizations SOCIAL HISTORY Never Assessed REASON FOR VISIT PLAN OF CARE VITAL SIGNS Height 62 in 2012-10-28 Weight 323.12 lbs 2012-10-28 Temperature 98.7 degrees Fahrenheit 2012-10-28 Heart Rate 80 bpm 2012-10-28 Respiratory Rate 18 2012-10-28 Blood pressure systolic 118 mmHg 2012-10-28 Blood pressure diastolic 76 mmHg 2012-10-28 MEDICATIONS Unknown Medications RESULTS No Results PROCEDURES Procedure Date Ordered Result Body Site PROTHROMBIN TIME October 28, 2012 INSTRUCTIONS MEDICATIONS ADMINISTERED No Known Medications MEDICAL [...] asthma(493.90) Medical History Near syncope Medical History alf current use of anticoagulant Medical History Renal [...] Stent placed 08/19/2017 Hospitalization History Syncope- [facility] 12/2017 Hospitalization History heart cath ( 06/23/18-06/25/2018) Hospitalization History heart problem, overnight stay 9
--- OUTSIDE RECORDS SUMMARY | 2019-11-03 19:21 | XMS REPORT ---
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 Name Role Phone Migration, Doctor Unavailable Unavailable PROBLEMS Type Condition ICD9-CM Code [id number] Code Onset Dates Condition S tatus SNOMED Code Problem Esophageal reflux K21.9 Active 24 9003346 Problem Dyslipidemia E78.5 12 Oct, 2017 Active 3709 83597 Problem Unspecified hypothyroidism E03.9 Act hernesto 88994304 Problem Generalized anxiety disorder F41.1 Apr, 200 8 Active 91955701 Problem Shortness of breath R06.02 Apr, Active 020206253 Problem Pulmonary embolus I26.99 13 Oct, 2011 Active 34972693 Problem Nonintractable migraine G43.009 08 Oct, 2015 Act hernesto 954558143 Problem Pre-diabetes R73.03 Active 6210373 02 Problem Morbid obesity with BMI of 50.0-59.9, adult Z68.43 Active 496578934 Problem Hypothyroidism E03.9 Active 97061 008 Problem Morbid obesity E66.01 Active 86700 6002 Problem Unspecified sleep apnea G47.30 Active 39431327 Problem Personal history of pulmonary embolism Z86.711 Active 450820050 Problem Osteoarthritis of right knee M17.11 13 May, 201 0 Active 561693710 Problem Renal stones N20.0 Active 1808133 7 Problem Coronary artery disease I25.10 Active 92490711 Problem Hyperlipidemia LDL goal <70 E78.5 Ac tive 90545573 Problem Migraine with aura and without status migrainosu s, not intractable G43.109 Active 3995882 ALLERGIES No Information ENCOUNTERS Encounter Location Date Diagnosis [facility] [address] [facility] [id number] [address] [place] [phone] Aug, [facility] [address] [facility] [id number] [address] [place] [phone] Aug, History of recurrent UTIs Z8 7.440 and Personal history of pulmonary embolism Z86.711 [facility] [address] [id number] [address] [place] [id number] Jul, History of recurrent UTIs Z8 7.440 [facility] [address] [facility] [id number] [address] [place] [id number] 07 Jun, 2019 Personal history of pulmonar y embolism Z86.711 [facility] [address] [facility] [id number] [address] [place] [phone] 07 Jun, 2019 Personal history of pulmonar y embolism Z86.711 [facility] [address] 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 [id number] [address] [place] [phone] Apr, Non-recurrent acute suppurat hernesto otitis media of both ears without spontaneous rupture of tympanic membranes H66.003 [place] [address] [facility] [id number] [address] [place] [address] Feb, Pre-diabetes R73.03 and Hype rlipidemia LDL goal <70 E78.5 [place] [address] [facility] [id number] [address] [place] [address] Feb, [place] [address] [facility] [id number] [address] [place] [address] Feb, [facility] [address] [facility] [id number] [address] [place] [phone] Jan, [place] [address] [facility] [id number] [address] [place] [phone] Jan, [facility] [address] [facility] [id number] [address] [place] [address] Jan, Encounter for Medicare annua l wellness exam Z00.00 ; Hyperlipidemia LDL goal <70 E78.5 ; Coronary artery disease I25.10 ; Hypothyroidism E03.9 ; Osteoarthritis of right knee M17.11 ; Morbid obesity with BMI of 50.0-59.9, adult Z68.43 and Esophageal reflux K21.9 [facility] [address] [facility] [id number] [address] [place] [id number] 13 Jan, 2019 Dysuria R30.0 and Hematuria, unspecified type R31.9 [facility] [address] [facility] [id number] [address] [place] [phone] Jan, Hematuria, unspecified type R31.9 [facility] [address] [facility] [id number] [address] [place] [phone] Dec, Hematuria, unspecified type R31.9 [facility] [address] [facility] [id number] [address] [place] [phone] Nov, Hematuria, unspecified type R31.[id number] [place] [phone] Nov, Other microscopic hematuria R31.29 [facility] [address] [facility] [id number] [address] [place] [phone] Nov, Vaginal gena B37.3 ; Othe r microscopic hematuria R31.29 and Morbid obesity E66.01 [facility] [address] [facility] [id number] [address] [place] [phone] Nov, [facility] [address] [facility] [id number] [address] [place] [phone] Nov, [facility] [address] [facility] [id number] [address] [place] [phone] Nov, UTI symptoms R39.9 and Morbi d obesity E66.01 [facility] [address] [facility] [id number] [address] [place] [phone] Nov, [facility] [address] [facility] [id number] [address] [place] [address] September, [place] [address] [facility] [id number] [address] [place] [phone] September, [place] [address] [facility] [id number] [address] [place] [address] Aug, Right foot pain M79.671 and Morbid obesity E66.01 [facility] [address] [facility] [id number] [address] [place] [address] Jul, Right foot pain M79.671 and Morbid obesity E66.01 [facility] [address] [facility] [id number] [address] [place] [address] Jul, Injury of right foot, initia l encounter S99.921A and Morbid obesity E66.01 [place] [address] [facility] [id number] [address] [place] [phone] Jul, Recurrent syncope R55 and Mo rbid obesity E66.01 [place] [address] 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 [id number] [address] [place] [address] May, Ankle pain, right M25.571 an d BMI 50.0-59.9, adult Z68.43 [place] [address] [facility] [id number] [address] [place] [phone] May, [place] [address] [address] May, [facility] [address] [address] Apr, [facility] [address] [address] Apr, [place] [address] [address] Apr, [facility] [address] [address] Apr, BMI 50.0-59.9, adult Z68.43 and Weakness R53.1 [place] [address] [address] Apr, [facility] [address] [address] Apr, Dysuria R30.0 ; Hematuria R3 1.9 ; Renal lithiasis N20.0 and BMI 50.0-59.9, adult Z68.43 [place] [address] [address] Apr, [place] [address] [address] Apr, [place] [address] [address] Apr, Hypothyroidism E03.9 [place] [address] [address] 04 Apr, 2018 Burning with urination R30.0 ; Type 2 diabetes mellitus with diabetic neuropathic arthropathy, 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 ; Acute bilateral low back pain without sciatica M54.5 and BMI 50.0- 59.9, adult Z68.43 [place] [address] [address] 02 Mar, 2018 Hypothyroidism E03.9 [place] [address] [address] [place] [id number] [address] [place] [phone] Feb, [facility] [address] [address] 15 Jan, 2018 [facility] [address] [place] [id number] [address] [place] [address] 07 Jan, 2018 Acute non-recurrent maxillar y sinusitis J01.00 and BMI 50.0-59.9, adult Z68.43 [facility] [address] [place] [id number] [address] [place] [address] 04 Jan, 2018 Congestion of upper respirat ory tract J98.8 and BMI 50.0-59.9, adult Z68.43 [facility] [address] [address] Dec, Type 2 diabetes mellitus wit h diabetic neuropathic arthropathy, 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 ; Morbid obesity with BMI of 50.0-59.9, adult Z68.43 ; Hypothyroidism E03.9 ; Coronary artery disease I25.10 ; Hyperlipidemia LDL goal <70 E78.5 ; Right lower quadrant abdominal pain R10.31 and Acute cystitis with hematuria N30.01 [facility] [address] [place] [id number] [address] [place] [address] Dec, Migraine with aura and witho ut status migrainosus, not intractable G43.109 ; Dehydration symptoms R63.8 and BMI 50.0-59.9, adult Z68.43 [facility] [address] [place] [id number] [address] [place] [phone] Oct, [place] [address] [address] Oct, [facility] [address] [place] [id number] [address] [place] [address] Oct, [facility] [address] [place] [id number] [address] [place] [address] September, [place] [address] [address] September, Type 2 diabetes mellitus wit h diabetic neuropathic arthropathy, 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 ; Hyperlipidemia, unspecified hyperlipidemia type E78.5 ; Personal history of pulmonary embolism Z86.711 ; Coronary artery disease I25.10 and Hypothyroidism E03.[address] [address] September, [place] [address] [address] Aug, Type 2 diabetes mellitus wit h [...] and with status migrainosus G43.011 [place] [address] [address] Aug, [place] [address] [address] Aug, [place] [address] [address] Jul, Renal stones N20.0 [facility] [address] [address] Jun, Back pain M54.9 ; Kidney sto radha N20.0 and BMI 50.0-59.9, adult Z68.43 [place] [address] [address] Jun, [place] [address] [address] Apr, [place] [address] [place] [id number] [address] [place] [address] 15 Apr, 2017 [facility] [address] [address] Apr, Right foot pain M79.671 ; Ac ronnie gout involving toe of right foot, 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 and Arthritis M19.90 [place] [address] [address] [place] [id number] [address] [place] [address] 06 Apr, 2017 Gastroesophageal reflux dise ase without esophagitis K21.9 [place] [address] [address] [place] [id number] [address] [place] [id number] 16 Mar, 2017 Hypothyroidism, unspecified E03.9 [place] [address] [address] [place] [id number] [place] [phone] Feb, [place] [address] [address] 25 Jan, 2017 Cervicalgia of occipito-atla nto-axial region M54.2 and Persistent headaches R51 [place] [address] [address] [place] [id number] [address] [place] [address] 20 Jan, 2017 [place] [address] [address] 12 Jan, 2017 Intractable migraine without aura and with status migrainosus G43.011 ; Cervical spine pain M54.2 ; Hyperlipidemia, unspecified hyperlipidemia type E78.5 ; Hypothyroidism E03.9 and Metabolic syndrome E88.81 [place] [address] [address] [place] [id number] [address] [place] [id number] 11 Jan, 2017 Hypothyroidism, unspecified E03.9 [place] [address] [address] [place] [id number] [address] [place] [address] Dec, Hypothyroidism, unspecified E03.9 [place] [address] [place] [id number] [address] [place] [address] Dec, Hypothyroidism E03.9 [place] [address] [address] Nov, Laceration of left great toe w/o foreign body w/o damage to nail, initial encounter S91.112A [facility] [place] [address] [address] Oct, Pain in left knee M25.562 an d Arthritis M19.90 [place] [address] [address] Oct, Hypothyroidism, unspecified E03.9 and Hyperlipidemia, unspecified hyperlipidemia type E78.[address] [address] Oct, Gastroesophageal reflux dise ase without esophagitis K21.9 [place] [address] [address] 14 Oct, 2016 Metabolic syndrome E88.81 ; Personal history of pulmonary embolism Z86.711 ; Other specified hypothyroidism E03.8 and Hyperlipidemia, unspecified hyperlipidemia type E78.5 [place] [address] [address] 13 Oct, 2016 Personal history of pulmonar y embolism Z86.711 ; Dysuria R30.0 ; Metabolic syndrome E88.81 ; Other specified hypothyroidism E03.8 ; Hyperlipidemia, unspecified hyperlipidemia type E78.5 and Morbid obesity with BMI of 50.0-59.9, adult Z68.43 [place] [address] [address] September, [facility] [address] [address] September, Wrist pain, left M25.532 and Acute pain of left knee M25.562 [place] [address] [address] Jul, Dysuria R30.0 [place] [address] [address] 30 Jul, 2016 Dysuria R30.[address] [address] 16 Jul, 2016 Left lower quadrant pain R10 .32 [place] [address] [address] 14 Jul, [address] [address] Jul, Coronary artery disease I25. 10 ; Family history of diabetes mellitus Z83.3 ; Morbid obesity with BMI of 50.0-59.9, adult Z68.43 ; Metabolic syndrome E88.81 ; Personal history of pulmonary embolism Z86.711 ; Gastroesophageal reflux disease without esophagitis K21.9 ; Hypothyroidism, unspecified E03.9 ; Hyperlipidemia, unspecified hyperlipidemia type E78.5 and Left lower quadrant pain R10.32 [facility] [address] [address] 09 Jul, 2016 [facility] [address] [address] 08 Jul, 2016 Morbid obesity with BMI of 5 0.0-59.9, adult Z68.43 [facility] [address] [address] Jul, Generalized abdominal pain R 10.84 [facility] [address] [address] 02 Jun, 2016 Muscle strain of right upper back, initial encounter S29.012A [facility] [address] [address] May, Foreign body (FB) in soft ti ssue M79.[address] [address] Mar, Hypothyroidism, unspecified E03.9 and Arthritis M19.[address] [address] Feb, Coronary artery disease I25. 10 ; Morbid obesity with BMI of 50.0- 59.9, adult Z68.43 ; Metabolic syndrome E88.81 ; Gastroesophageal reflux disease without esophagitis K21.9 ; Hypothyroidism, unspecified E03.9 ; Personal history of pulmonary embolism Z86.711 and Hyperlipidemia, unspecified hyperlipidemia type E78.5 [place] [address] [address] Feb, [facility] [address] [place] [id number] [place] [address] Jan, Acute right-sided thoracic b ack pain M54.6 [place] [address] [address] Jan, Acute pain of left knee M25. 562 [place] [address] [address] Dec, Dysuria R30.0 ; Metabolic sy ndrome E88.81 ; Acute pain of left knee M25.562 ; Acute cystitis with hematuria N30.01 and Acute left eye pain H57.12 [place] [address] [address] Dec, [place] [address] [address] Dec, [place] [address] [place] [id number] [place] [address] Dec, Hypothyroidism, unspecified E03.9 [place] [address] [address] Dec, [place] [address] [address] Nov, Peripheral edema R60.9 and A cute pain of left knee M25.562 [facility] [address] [address] September, [place] [address] [place] [id number] [address] [place] [address] September, Metabolic syndrome E88.81 an d Allergy, subsequent encounter T78.40XD [facility] [address] [place] [id number] [address] [place] [address] September, Muscle strain T14.8 [place] [address] [address] Aug, Chest pressure R07.89 ; [place] Patent bolic syndrome E88.81 ; Morbid obesity with BMI of 50.0-59.9, adult Z68.43 ; Esophageal reflux 530.81 and Shortness of breath R06.02 [place] [address] [address] Aug, [place] [address] [address] Aug, [place] [address] [address] Aug, Hypothyroidism, unspecified E03.[address] [address] Aug, Routine health maintenance Z 00.00 [facility] [place] [address] [address] [place] [id number] [address] [place] [address] Aug, [place] [address] [place] [id number] [place] [address] Jul, Routine health maintenance Z 00.00 ; Family history of diabetes mellitus Z83.3 ; Family history of cancer Z80.9 and Morbid obesity with BMI of 50.0-59.9, adult Z68.43 [facility] [address] [place] [id number] [address] [place] [address] Jul, Allergic rhinitis J30.9 and Postnasal drip R09.82 [place] [address] [address] [place] [id number] [address] [place] [address] Jul, Influenza J11.1 [facility] [address] [id number] [address] [place] [address] Jul, Dysuria R30.0 [facility] [address] [id number] [address] [place] [address] Apr, [facility] [address] [id number] [address] [place] [address] Mar, Acute upper respiratory infe ction, unspecified J06.9 and Hypothyroidism E03.9 [facility] [address] [id number] [address] [place] [address] Mar, [facility] [address] [id number] [address] [place] [address] Feb, Coronary artery disease I25. 10 [facility] [address] [id number] [address] [place] [address] Feb, Left foot pain M79.672 [facility] [address] [id number] [address] [place] [address] Jan, UTI (urinary tract infection ) 599.0 [facility] [address] [id number] [address] [place] [address] Jan, Urinary tract infection, sit e not specified 599.0 [facility] [address] [id number] [address] [place] [address] Jan, Urinary tract infection, sit e not specified 599.0 [facility] [address] [id number] [address] [place] [phone] Jan, [facility] [address] [id number] [address] [place] [address] Dec, Headache 784.0 [facility] [address] [id number] [address] [place] [phone] Dec, Urinary tract infection, sit e not specified 599.0 [facility] [address] [id number] [address] [place] [address] Dec, Urinary tract infection, sit e not specified 599.0 [facility] [address] [id number] [address] [place] [address] Dec, Urinary tract infection, sit e not specified 599.0 [facility] [address] [id number] [address] [place] [address] Nov, Unspecified sleep apnea 780. 57 ; Encounter for long-term (current) use of anticoagulants V58.61 ; Routine general medical examination at health care facility V70.0 and Arthritis of both knees 716.96 [facility] [address] [id number] [address] [place] [address] September, Cat bite of hand 882.0 and R ectal bleeding 569.3 [facility] [address] [id number] [address] [place] [address] Aug, [facility] [address] [id number] [address] [place] [id number] Aug, [facility] [address] [id number] [address] [place] [id number] Jul, [facility] [address] [id number] [address] [place] [phone] Jul, [facility] [address] [id number] [address] [place] [id number] Jul, [facility] [address] [id number] [address] [place] [id number] Jul, [facility] [address] [id number] [address] [place] [phone] Jul, [facility] [address] [id number] [address] [place] [id number] Jul, [facility] [address] [id number] [address] [place] [id number] Jul, [facility] [address] [id number] [address] [place] [address], [place] [id number] Jul, [facility] [address] [id number] [address] [place] [address], [place] [id number] May, [facility] [address] [id number] [address] [place] [address], [place] [id number] May, [facility] [address] [id number] [address] [place] [address], [place] [id number] May, [facility] [address] [id number] [address] [place] [address], [place] [id number] May, [facility] [address] [id number] [address] [place] [address], [place] [id number] May, [facility] [address] [id number] [address] [place] [address], [place] [id number] May, [facility] [address] [id number] [address] [place] [address], [place] [address] May, [facility] [address] [address] [id number] [address] [place] [address], [place] [address] Mar, [facility] [address] [id number] [address] [place] [address], [place] [address] Mar, [facility] [address] [id number] [address] [place] [address], [place] [address] 08 Jan, 2013 [facility] [address] [id number] [address] [place] [address], [place] [address] 08 Sep, 2013 [facility] [address] [id number] [address] [place] [address], [place] [address] 08 Sep, 2013 [facility] [address] [id number] [address] [place] [address], [place] [address] 08 Sep, 2013 [facility] [address] [id number] [address] [place] [address], [place] [address] 05 Sep, 2013 [facility] [address] [id number] [address] [place] [address], [place] [address] Jan, [facility] [address] [id number] [address] [place] [address], [place] [address] Dec, [facility] [address] [id number] [address] [place] [address], [place] [address] Dec, [facility] [address] [id number] [address] [place] [address], [place] [address] Dec, [facility] [address] [id number] [address] [place] [address], [place] [address] Dec, [facility] [address] [id number] [address] [place] [address], [place] [address] Dec, [facility] [address] [id number] [address] [place] [address], [place] [address] Dec, [facility] [address] [id number] [address] [place] [address], [place] [address] Dec, [facility] [address] [id number] [address] [place] [address], [place] [address] Dec, [facility] [address] [id number] [address] [place] [address], [place] [address] Dec, [facility] [address] [id number] [address] [place] [address], [place] [address] Dec, [facility] [address] [id number] [address] [place] [address], [place] [address] Nov, [facility] [address] [id number] [address] [place] [address], [place] [address] Nov, [facility] [address] [id number] [address] [place] [address], [place] [address] September, [facility] [address] [id number] [address] [place] [address], [place] [address] September, [facility] [address] [id number] [address] [place] [address], [place] [address] September, [facility] [address] [id number] [address] [place] [address], [place] [address] September, [facility] [address] [id number] [address] [place] [address], [place] [address] Aug, [facility] [address] [id number] [address] [place] [address], [place] [address] Aug, [facility] [address] [id number] [address] [place] [address], [place] [address] Aug, [facility] [address] [id number] [address] [place] [address], [place] [address] Aug, [facility] [address] [id number] [address] [place] [address], [place] [address] Aug, [facility] [address] [id number] [address] [place] [address], [place] [address] Aug, [facility] [address] [id number] [address] [place] [address], [place] [address] Aug, [facility] [address] [id number] [address] [place] [address], [place] [address] Aug, [facility] [address] [id number] [address] [place] [address], [place] [address] Aug, [facility] [address] [id number] [address] [place] [address], [place] [address] Aug, [facility] [address] [id number] [address] [place] [address], [place] [address] Aug, [facility] [address] [id number] [address] [place] [address], [place] [address] Aug, [facility] [address] [id number] [address] [place] [address], [place] [address] Jul, [facility] [address] [id number] [address] [place] [address], [place] [address] Jul, [facility] [address] [id number] [address] [place] [address], [place] [address] Jul, [facility] [address] [id number] [address] [place] [address], [place] [address] Jul, [facility] [address] [id number] [address] [place] [address], [place] [address] Jul, [facility] [address] [id number] [address] [place] [address], [place] [address] Jul, [facility] [address] [id number] [address] [place] [address], [place] [address] 05 Jul, 2013 [facility] [address] [id number] [address] [place] [address], [place] [address] Jul, [facility] [address] [id number] [address] [place] [address], [place] [address] Jul, [facility] [address] [id number] [address] [place] [address], [place] [address] Jul, [facility] [address] [id number] [address] [place] [address], [place] [address] Jun, [facility] [address] [id number] [address] [place] [address], [place] [address] Jun, [facility] [address] [id number] [address] [place] [address], [place] [address] 17 Jun, 2013 [facility] [address] [id number] [address] [place] [address], [place] [address] 17 Jun, 2013 [facility] [address] [id number] [address] [place] [address], [place] [address] Jun, [facility] [address] [id number] [address] [place] [address], [place] [address] Jun, [facility] [address] [id number] [address] [place] [address], [place] [address] Jun, [facility] [address] [id number] [address] [place] [address], [place] [address] Jun, [facility] [address] [id number] [address] [place] [address], [place] [address] Jun, [facility] [address] [id number] [address] [place] [address], [place] [address] Jun, [facility] [address] [id number] [address] [place] [address], [place] [address] Jun, [facility] [address] [id number] [address] [place] [address], [place] [address] Jun, [facility] [address] [id number] [address] [place] [address], [place] [address] May, [facility] [address] [id number] [address] [place] [address], [place] [address] May, [facility] [address] [id number] [address] [place] [address], [place] [address] May, [facility] [address] [id number] [address] [place] [address], [place] [address] May, [facility] [address] [id number] [address] [place] [address], [place] [address] May, [facility] [address] [id number] [address] [place] [address], [place] [address] May, [facility] [address] [id number] [address] [place] [address], [place] [address] May, [facility] [address] [id number] [address] [place] [address], [place] [address] May, [facility] [address] [id number] [address] [place] [address], [place] [address] May, [facility] [address] [id number] [address] [place] [address], [place] [address] May, [facility] [address] [id number] [address] [place] [address], [place] [address] May, [facility] [address] [id number] [address] [place] [address], [place] [address] May, [facility] [address] [id number] [address] [place] [address], [place] [address] May, [facility] [address] [id number] [address] [place] [address], [place] [address] May, [facility] [address] [id number] [address] [place] [address], [place] [address] May, [facility] [address] [id number] [address] [place] [address], [place] [address] Apr, [facility] [address] [id number] [address] [place] [address], [place] [address] Apr, [facility] [address] [id number] [address] [place] [address], [place] [address] Apr, [facility] [address] [id number] [address] [place] [address], [place] [address] Apr, [facility] [address] [id number] [address] [place] [address], [place] [address] Mar, [facility] [address] [id number] [address] [place] [address], [place] [address] Mar, [facility] [address] [id number] [address] [place] [address], [place] [address] Mar, [facility] [address] [id number] [address] [place] [address], [place] [address] Mar, [facility] [address] [id number] [address] [place] [address], [place] [address] Mar, [facility] [address] [id number] [address] [place] [address], [place] [address] Mar, [facility] [address] [id number] [address] [place] [address], [place] [address] Mar, [facility] [address] [id number] [address] [place] [address], [place] [address] Mar, [facility] [address] [id number] [address] [place] [address], [place] [address] 05 Mar, 2013 [facility] [address] [id number] [address] [place] [address], [place] [address] 05 Mar, 2013 [facility] [address] [id number] [address] [place] [address], [place] [address] Mar, [facility] [address] [id number] [address] [place] [address], [place] [address] Mar, [facility] [address] [id number] [address] [place] [address], [place] [address] Feb, [facility] [address] [id number] [address] [place] [address], [place] [address] 18 Jan, 2013 [facility] [address] [id number] [address] [place] [address], [place] [address] 17 Jan, 2013 [facility] [address] [id number] [address] [place] [address], [place] [address] 06 Jan, 2013 [facility] [address] [id number] [address] [place] [address], [place] [address] 04 Jan, 2013 [facility] [address] [id number] [address] [place] [address], [place] [address] 03 Jan, 2013 [facility] [address] [id number] [address] [place] [address], [place] [address] Dec, [facility] [address] [id number] [address] [place] [address], [place] [address] Dec, [facility] [address] [id number] [address] [place] [address], [place] [address] Dec, [facility] [address] [id number] [address] [place] [address], [place] [address] 16 Dec, 2012 [facility] [address] [id number] [address] [place] [address], [place] [address] Dec, [facility] [address] [id number] [address] [place] [address], [place] [address] Dec, [facility] [address] [id number] [address] [place] [address], [place] [address] Dec, [facility] [address] [id number] [address] [place] [address], [place] [address] Dec, [facility] [address] [id number] [address] [place] [address], [place] [address] Nov, [facility] [address] [id number] [address] [place] [address], [place] [address] Nov, [facility] [address] [id number] [address] [place] [address], [place] [address] Nov, [facility] [address] [id number] [address] [place] [address], [place] [address] Nov, [facility] [address] [id number] [address] [place] [address], [place] [address] Nov, [facility] [address] [id number] [address] [place] [address], [place] [address] Nov, [facility] [address] [id number] [address] [place] [address], [place] [address] Oct, [facility] [address] [id number] [place] [id number] Oct, [facility] [address] [id number] [place] [id number] Oct, [facility] [address] [id number] [place] [id number] Oct, [facility] [address] [id number] [place] [id number] Oct, [facility] [address] [id number] [address] [place] [address], [place] [address] Oct, [facility] [address] [id number] [address] [place] [address], [place] [address] Oct, [facility] [address] [id number] [address] [place] [address], [place] [address] Oct, [facility] [address] [id number] [address] [place] [address], [place] [address] 11 Oct, 2012 [facility] [address] [id number] [address] [place] [address], [place] [address] Oct, [facility] [address] [id number] [address] [place] [address], [place] [address] Oct, [facility] [address] [id number] [address] [place] [address], [place] [address] September, [facility] [address] [id number] [address] [place] [address], [place] [address] Aug, [facility] [address] [id number] [address] [place] [address], [place] [address] Aug, [facility] [address] [id number] [address] [place] [address], [place] [address] Aug, [facility] [address] [id number] [address] [place] [address], [place] [address] Aug, [facility] [address] [id number] [address] [place] [address], [place] [address] Jul, [facility] [address] [id number] [address] [place] [address], [place] [address] Jul, [facility] [address] [id number] [address] [place] [address], [place] [address] Jul, [facility] [address] [id number] [address] [place] [address], [place] [address] Jul, [facility] [address] [id number] [address] [place] [address], [place] [address] Jul, [facility] [address] [id number] [address] [place] [address], [place] [address] Jun, [facility] [address] [id number] [address] [place] [address], [place] [address] Jun, [facility] [address] [id number] [address] [place] [address], [place] [address] Jun, [facility] [address] [id number] [address] [place] [address], [place] [address] May, [facility] [address] [id number] [address] [place] [address], [place] [address] 24 May, 2012 [facility] [address] [id number] [address] [place] [address], [place] [address] 14 May, 2012 [facility] [address] [id number] [address] [place] [address], [place] [address] May, [facility] [address] [id number] [address] [place] [address], [place] [address] May, [facility] [address] [id number] [address] [place] [address], [place] [address] May, [facility] [address] [id number] [address] [place] [address], [place] [address] 18 Apr, 2012 [facility] [address] [id number] [address] [place] [address], [place] [address] 18 Apr, 2012 [facility] [address] [id number] [address] [place] [address], [place] [address] Apr, [facility] [address] [id number] [address] [place] [address], [place] [address] Apr, [facility] [address] [id number] [address] [place] [address], [place] [address] Apr, [facility] [address] [id number] [address] [place] [address], [place] [address] Apr, [facility] [address] [id number] [address] [place] [address], [place] [address] Apr, [facility] [address] [id number] [address] [place] [address], [place] [address] Mar, [facility] [address] [id number] [address] [place] [address], [place] [address] Mar, [facility] [address] [id number] [address] [place] [address] Mar, [facility] [address] [id number] [address] [place] [address] Mar, [facility] [address] [id number] [address] [place] [address] Jan, [facility] [address] [id number] [address] [place] [address] Jan, [facility] [address] [id number] [address] [place] [address] Jan, [facility] [address] [id number] [address] [place] [address] Jan, [facility] [address] [id number] [place] [id number] Dec, [facility] [address] [id number] [address] [place] [address] Dec, [facility] [address] [id number] [place] [id number] Dec, [facility] [address] [id number] [address] [place] [address] Dec, [facility] [address] [id number] [address] [place] [address] Dec, [facility] [address] [id number] [address] [place] [address] Dec, [facility] [address] [id number] [address] [place] [phone] Nov, [facility] [address] [id number] [address] [place] [id number] Nov, [facility] [address] [id number] [address] [place] [phone] Nov, IMMUNIZATIONS No Known Immunizations SOCIAL HISTORY Never Assessed REASON FOR VISIT PLAN OF CARE VITAL SIGNS MEDICATIONS Unknown Medications RESULTS No Results PROCEDURES Procedure Date Ordered Result Body Site CHEST X-RAY May 19, 2013 INSTRUCTIONS MEDICATIONS ADMINISTERED No Known Medications MEDICAL [...] asthma(493.90) Medical History Near syncope 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
--- OUTSIDE RECORDS SUMMARY | 2019-11-03 19:21 | XMS REPORT ---
Author Author Anca Lucero Doctor Organization [facility] Address Unknown Phone Unavailable Care Team Providers Care Ultrasound Manager Name Role Phone Migration, Doctor Unavailable Unavailable PROBLEMS Type Condition ICD9-CM Code [id number] Code Onset Dates Condition S tatus SNOMED Code Problem Esophageal reflux K21.9 Active 24 4404174 Problem Dyslipidemia E78.5 12 Oct, 2017 Active 3709 86019 Problem Unspecified hypothyroidism E03.9 Act hernesto 36534076 Problem Generalized anxiety disorder F41.1 Apr, 200 8 Active 05291999 Problem Shortness of breath R06.02 Apr, Active 683743469 Problem Pulmonary embolus I26.99 13 Oct, 2011 Active 90542771 Problem Nonintractable migraine G43.009 08 Oct, 2015 Act hernesto 953650775 Problem Pre-diabetes R73.03 Active 9731755 02 Problem Morbid obesity with BMI of 50.0-59.9, adult Z68.43 Active 449317322 Problem Hypothyroidism E03.9 Active 84940 008 Problem Morbid obesity E66.01 Active 88048 6002 Problem Unspecified sleep apnea G47.30 Active 43238463 Problem Personal history of pulmonary embolism Z86.711 Active 030523253 Problem Osteoarthritis of right knee M17.11 13 May, 201 0 Active 528065594 Problem Renal stones N20.0 Active 1824969 7 Problem Coronary artery disease I25.10 Active 57734823 Problem Hyperlipidemia LDL goal <70 E78.5 Ac tive 57955515 Problem Migraine with aura and without status migrainosu s, not intractable G43.109 Active 6239964 ALLERGIES No Information ENCOUNTERS Encounter Location Date Diagnosis [facility] [address] [facility] [id number] [address] [place] [phone] 31 Jul, 2019 History of recurrent UTIs Z8 7.440 [facility] [address] [facility] [id number] [address] [place] [id number] 07 Jun, 2019 Personal history of pulmonar y embolism Z86.711 [facility] [address] [facility] [id number] [address] [place] [id number] 07 Jun, 2019 Personal history of pulmonar y embolism Z86.711 [facility] [address] [facility] [id number] [address] [place] [phone] 21 May, 2019 [facility] [address] [id number] [address] 17 May, 2019 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 and Dizziness R42 [facility] IN [facility] [address] [facility] [id number] [address] [place] [address] 12 Apr, 2019 Non-recurrent acute suppurat hernesto otitis media of both ears without spontaneous rupture of tympanic membranes H66.003 [place] [address] [facility] [id number] [address] [place] [phone] 08 Feb, 2019 Pre-diabetes R73.03 and Hype rlipidemia LDL goal <70 E78.5 [place] [address] [facility] [id number] [address] [place] [phone] 07 Feb, 2019 [place] [address] [place] [id number] [address] [place] [id number] 03 Feb, 2019 [place] [address] [facility] [id number] [address] [place] [phone] 30 Jan, 2019 [place] [address] [facility] [id number] [address] [place] [phone] 24 Jan, 2019 [place] [address] [facility] [id number] [address] [place] [phone] 18 Jan, 2019 Encounter for Medicare annua l wellness exam Z00.00 ; Hyperlipidemia LDL goal <70 E78.5 ; Coronary artery disease I25.10 ; Hypothyroidism E03.9 ; Osteoarthritis of right knee M17.11 ; Morbid obesity with BMI of 50.0-59.9, adult Z68.43 and Esophageal reflux K21.9 [place] [address] [facility] [id number] [address] [place] [phone] Jan, Dysuria R30.0 and Hematuria, unspecified type R31.9 [facility] [address] [facility] [id number] [address] [place] [phone] Jan, Hematuria, unspecified type R31.9 [facility] [address] [facility] [id number] [address] [place] [phone] Dec, Hematuria, unspecified type R31.9 [facility] [address] [facility] [id number] [address] [place] [phone] Nov, Hematuria, unspecified type R31.[address] [id number] [address] Nov, Other microscopic hematuria R31.29 [facility] [address] [facility] [id number] [address] [place] [address] Nov, Vaginal gena B37.3 ; Othe r microscopic hematuria R31.29 and Morbid obesity E66.01 [facility] [address] [facility] [id number] [address] [place] [phone] Nov, [facility] [address] [facility] [id number] [address] [place] [phone] Nov, [facility] [address] [facility] [id number] [address] [place] [phone] Nov, UTI symptoms R39.9 and Morbi d obesity E66.01 [facility] [address] [facility] [id number] [address] [place] [phone] Nov, [facility] [address] [facility] [id number] [address] [place] [address] September, [facility] [address] [facility] [id number] [address] [place] [address] September, [facility] [address] [facility] [id number] [address] [place] [address] Aug, Right foot pain M79.671 and Morbid obesity E66.01 [facility] [address] [facility] [id number] [address] [place] [address] Jul, Right foot pain M79.671 and Morbid obesity E66.01 [facility] [address] [place] [id number] [address] [place] [phone] Jul, Injury of right foot, initia l encounter S99.921A and Morbid obesity E66.01 [facility] [address] [address] 05 Jul, 2018 Recurrent syncope R55 and Mo rbid obesity E66.01 [place] [address] [place] [id number] [place] [phone] 04 Jul, 2018 [place] [address] [address] Jun, Hematuria, unspecified type R31.9 and BMI 50.0-59.9, adult Z68.43 [place] [address] [place] [id number] [address] [place] [phone] 07 Jun, [id number] [place] [address] 04 Jun, 2018 [employer] current use of ant icoagulant Z79.01 [facility] [address] [place] [id number] [address] [place] [address] May, Ankle pain, right M25.571 an d BMI 50.0-59.9, adult Z68.43 [facility] [address] [facility] [id number] [address] [place] [phone] May, [place] [address] [place] [id number] [place] [phone] May, [facility] [address] [place] [id number] [address] [place] [phone] Apr, [place] [address] [place] [id number] [place] [address] Apr, [place] [address] [place] [id number] [address] [place] [phone] Apr, [facility] [address] [place] [id number] [place] [address] Apr, BMI 50.0-59.9, adult Z68.43 and Weakness R53.1 [facility] [address] [place] [id number] [place] [address] Apr, [facility] [address] [place] [id number] [place] [address] Apr, Dysuria R30.0 ; Hematuria R3 1.9 ; Renal lithiasis N20.0 and BMI 50.0-59.9, adult Z68.43 [place] [address] [place] [id number] [place] [address] Apr, [place] [address] [address] Apr, [place] [address] [address] Apr, Hypothyroidism E03.9 [place] [address] [address] Apr, Burning with urination R30.0 ; Type 2 diabetes mellitus with diabetic neuropathic arthropathy, 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 ; Acute bilateral low back pain without sciatica M54.5 and BMI 50.0- 59.9, adult Z68.43 [place] [address] [place] [id number] [address] [place] [address] Mar, Hypothyroidism E03.9 [place] [address] [place] [id number] [place] [address] Feb, [facility] [address] [place] [id number] [address] [place] [address] Jan, [place] [address] [address] 07 Jan, 2018 Acute non-recurrent maxillar y sinusitis J01.00 and BMI 50.0-59.9, adult Z68.43 [facility] [place] [address] [address] 04 Jan, 2018 Congestion of upper respirat ory tract J98.8 and BMI 50.0-59.9, adult Z68.43 [place] [address] [address] Dec, Type 2 diabetes mellitus wit h diabetic neuropathic arthropathy, 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 ; Morbid obesity with BMI of 50.0-59.9, adult Z68.43 ; Hypothyroidism E03.9 ; Coronary artery disease I25.10 ; Hyperlipidemia LDL goal <70 E78.5 ; Right lower quadrant abdominal pain R10.31 and Acute cystitis with hematuria N30.01 [facility] [place] [address] [address] Dec, Migraine with aura and witho ut status migrainosus, not intractable G43.109 ; Dehydration symptoms R63.8 and BMI 50.0-59.9, adult Z68.43 [place] [address] [address] Oct, [place] [address] [address] Oct, [place] [address] [address] Oct, [place] [address] [address] September, [address] [address] September, Type 2 diabetes mellitus wit h diabetic neuropathic arthropathy, 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 ; Hyperlipidemia, unspecified hyperlipidemia type E78.5 ; Personal history of pulmonary embolism Z86.711 ; Coronary artery disease I25.10 and Hypothyroidism E03.9 [facility] [address] [address] September, [place] [address] [address] Aug, Type 2 diabetes mellitus wit h [...] without aura and with status migrainosus G43.[address] [address] Aug, [place] [address] [address] Aug, [place] [address] [address] Jul, Renal stones N20.0 [facility] IN [facility] [address] [address] Jun, Back pain M54.9 ; Kidney sto radha N20.0 and BMI 50.0-59.9, adult Z68.43 [place] [address] [address] Jun, [place] [address] [address] Apr, [address] [address] Apr, [place] [address] [address] Apr, Right foot pain M79.671 ; Ac [place] gout involving toe of right foot, 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 and Arthritis M19.90 [place] [address] [place] [id number] [address] [place] [address] 06 Apr, 2017 Gastroesophageal reflux dise ase without esophagitis K21.9 [place] [address] [place] [id number] [address] [place] [address] 16 Mar, 2017 Hypothyroidism, unspecified E03.9 [place] [address] [address] 11 Feb, 2017 [place] [address] [address] 25 Jan, 2017 Cervicalgia of occipito-atla nto-axial region M54.2 and Persistent headaches R51 [place] [address] [address] 20 Jan, 2017 [place] [address] [address] 12 Jan, 2017 Intractable migraine without aura and with status migrainosus G43.011 ; Cervical spine pain M54.2 ; Hyperlipidemia, unspecified hyperlipidemia type E78.5 ; Hypothyroidism E03.9 and Metabolic syndrome E88.81 [place] [address] [address] Jan, Hypothyroidism, unspecified E03.9 [place] [address] [address] Dec, Hypothyroidism, unspecified E03.9 [place] [address] [address] Dec, Hypothyroidism E03.9 [place] [address] [address] Nov, Laceration of left great toe w/o foreign body w/o damage to nail, initial encounter S91.112A [facility] [address] [place] [id number] [address] [place] [address] Oct, Pain in left knee M25.562 an d Arthritis M19.90 [facility] [address] [address] Oct, Hypothyroidism, unspecified E03.9 and Hyperlipidemia, unspecified hyperlipidemia type E78.5 [place] [address] [place] [id number] [place] [address] 22 Oct, 2016 Gastroesophageal reflux dise ase without esophagitis K21.9 [facility] [address] [address] 14 Oct, 2016 Metabolic syndrome E88.81 ; Personal history of pulmonary embolism Z86.711 ; Other specified hypothyroidism E03.8 and Hyperlipidemia, unspecified hyperlipidemia type E78.5 [place] [address] [address] 13 Oct, 2016 Personal history of pulmonar y embolism Z86.711 ; Dysuria R30.0 ; Metabolic syndrome E88.81 ; Other specified hypothyroidism E03.8 ; Hyperlipidemia, unspecified hyperlipidemia type E78.5 and Morbid obesity with BMI of 50.0-59.9, adult Z68.43 [place] [address] [address] September, [facility] [address] [address] September, Wrist pain, left M25.532 and Acute pain of left knee M25.562 [place] [address] [address] Jul, Dysuria R30.0 [facility] [address] [address] Jul, Dysuria R30.0 [place] [address] [address] Jul, Left lower quadrant pain R10 .32 [facility] [address] [address] Jul, [address] [address] 09 Jul, 2016 Coronary artery disease I25. 10 ; Family history of diabetes mellitus Z83.3 ; Morbid obesity with BMI of 50.0-59.9, adult Z68.43 ; Metabolic syndrome E88.81 ; Personal history of pulmonary embolism Z86.711 ; Gastroesophageal reflux disease without esophagitis K21.9 ; Hypothyroidism, unspecified E03.9 ; Hyperlipidemia, unspecified hyperlipidemia type E78.5 and Left lower quadrant pain R10.32 [facility] [address] [address] 09 Jul, 2016 [facility] [address] [address] 08 Jul, 2016 Morbid obesity with BMI of 5 0.0-59.9, adult Z68.43 [facility] [address] [address] Jul, Generalized abdominal pain R 10.84 [facility] [address] [address] 02 Jun, 2016 Muscle strain of right upper back, initial encounter S29.012A [facility] [address] [address] May, Foreign body (FB) in soft ti ssue M79.[address] [address] Mar, Hypothyroidism, unspecified E03.9 and Arthritis M19.[address] [address] 13 Feb, 2016 Coronary artery disease I25. 10 ; Morbid obesity with BMI of 50.0- 59.9, adult Z68.43 ; Metabolic syndrome E88.81 ; Gastroesophageal reflux disease without esophagitis K21.9 ; Hypothyroidism, unspecified E03.9 ; Personal history of pulmonary embolism Z86.711 and Hyperlipidemia, unspecified hyperlipidemia type E78.5 [place] [address] [id number] [address] [place] [address] Feb, [facility] [address] [id number] [address] [place] [address] Jan, Acute right-sided thoracic b ack pain M54.6 [place] [address] [id number] [address] [place] [address] Jan, Acute pain of left knee M25. 562 [place] [address] [id number] [address] [place] [address] Dec, Dysuria R30.0 ; Metabolic sy ndrome E88.81 ; Acute pain of left knee M25.562 ; Acute cystitis with hematuria N30.01 and Acute left eye pain H57.12 [place] [address] [id number] [address] [place] [address] Dec, [place] [address] [id number] [address] [place] [address] Dec, [place] [address] [id number] [address] [place] [address] Dec, Hypothyroidism, unspecified E03.9 [place] [address] [id number] [address] [place] [address] Dec, [place] [address] [id number] [address] [place] [address] Nov, Peripheral edema R60.9 and A cute pain of left knee M25.562 [facility] [address] [id number] [address] [place] [address] September, [place] [address] [id number] [address] [place] [address] September, Metabolic syndrome E88.81 an d Allergy, subsequent encounter T78.40XD [facility] [address] [id number] [address] [place] [address] September, Muscle strain T14.8 [facility] [address] [place] [id number] [address] [place] [address] Aug, Chest pressure R07.89 ; Penrose bolic syndrome E88.81 ; Morbid obesity with BMI of 50.0-59.9, adult Z68.43 ; Esophageal reflux 530.81 and Shortness of breath R06.02 [place] [address] [address] Aug, [place] [address] [address] Aug, [place] [address] [address] Aug, Hypothyroidism, unspecified E03.9 [place] [address] [address] Aug, Routine health maintenance Z 00.00 [facility] [place] [address] [address] Aug, [place] [address] [address] Jul, Routine health maintenance Z 00.00 ; Family history of diabetes mellitus Z83.3 ; Family history of cancer Z80.9 and Morbid obesity with BMI of 50.0-59.9, adult Z68.43 [facility] [place] [address] [address] Jul, Allergic rhinitis J30.9 and Postnasal drip R09.82 [place] [address] [place] [id number] [address] [place] [address] Jul, Influenza J11.1 [facility] [address] [address] 08 Jul, 2015 Dysuria R30.0 [place] [address] [address] Apr, [place] [address] [id number] [address] [place] [address] Mar, Acute upper respiratory infe ction, unspecified J06.9 and Hypothyroidism E03.9 [facility] [address] [id number] [address] [place] [address] Mar, [facility] [address] [id number] [address] [place] [address] Feb, Coronary artery disease I25. 10 [facility] [address] [id number] [address] [place] [address] 16 Feb, 2015 Left foot pain M79.672 [facility] [address] [id number] [address] [place] [address] Jan, UTI (urinary tract infection ) 599.0 [place] [address] [id number] [address] [place] [address] Jan, Urinary tract infection, sit e not specified 599.0 [facility] [address] [id number] [address] [place] [address] Jan, Urinary tract infection, sit e not specified 599.0 [facility] [address] [id number] [address] [place] [address] Jan, [facility] [address] [id number] [address] [place] [address] Dec, Headache 784.0 [facility] [address] [id number] [address] [place] [address] Dec, Urinary tract infection, sit e not specified 599.0 [facility] [address] [id number] [address] [place] [address] Dec, Urinary tract infection, sit e not specified 599.0 [facility] [address] [id number] [address] [place] [address] Dec, Urinary tract infection, sit e not specified 599.0 [facility] [address] [id number] [address] [place] [address] Nov, Unspecified sleep apnea 780. 57 ; Encounter for long-term (current) use of anticoagulants V58.61 ; Routine general medical examination at health care facility V70.0 and Arthritis of both knees 716.96 [facility] [address] [id number] [address] [place] [address] September, Cat bite of hand 882.0 and R ectal bleeding 569.3 [facility] [address] [id number] [address] [place] [address] Aug, [facility] [address] [id number] [address] [place] [address] Aug, [facility] [address] [id number] [address] [place] [address] Jul, [facility] [address] [id number] [address] [place] [address] Jul, [facility] [address] [id number] [address] [place] [address] Jul, [facility] [address] [id number] [address] [place] [address] Jul, [facility] [address] [id number] [address] [place] [address] Jul, [facility] [address] [id number] [address] [place] [address] Jul, [facility] [address] [id number] [address] [place] [phone] Jul, [facility] [address] [id number] [address] [place] [address] Jul, [facility] [address] [id number] [address] [place] [address] May, [facility] [address] [id number] [address] [place] [phone] May, [facility] [address] [id number] [address] [place] [address], [place] [address] May, [facility] [address] [id number] [address] [place] [address], [place] [address] May, [facility] [address] [id number] [address] [place] [address], [place] [id number] May, [facility] [address] [id number] [address] [place] [address], [place] [id number] May, [facility] [address] [id number] [address] [place] [address], [place] [id number] May, [facility] [address] [id number] [address] [place] [address], [place] [id number] Mar, [facility] [address] [id number] [address] [place] [address], [place] [id number] Mar, [facility] [address] [id number] [address] [place] [address], [place] [id number] 08 Jan, 2013 [facility] [address] [id number] [address] [place] [address], [place] [id number] 08 Jan, 2013 [facility] [address] [id number] [address] [place] [address], [place] [id number] 08 Jan, 2013 [facility] [address] [id number] [address] [place] [address], [place] [id number] 08 Jan, 2013 [facility] [address] [id number] [address] [place] [address], [place] [id number] 05 Jan, 2013 [facility] [address] [id number] [address] [place] [address], [place] [id number] 05 Jan, 2013 [facility] [address] [id number] [address] [place] [address], [place] [id number] Dec, [facility] [address] [id number] [address] [place] [address], [place] [id number] Dec, [facility] [address] [id number] [address] [place] [address], [place] [id number] Dec, [facility] [address] [id number] [facility] [id number] Dec, [facility] [facility] [address] [id number] [address] [place] [address], [place] [address] Dec, [facility] [address] [id number] [address] [place] [address], [place] [address] Dec, [facility] [address] [id number] [address] [place] [address], [place] [address] Dec, [facility] [address] [id number] [address] [place] [address], [place] [address] Dec, [facility] [address] [id number] [address] [place] [address], [place] [address] Dec, [facility] [address] [id number] [address] [place] [address], [place] [address] Dec, [facility] [address] [id number] [address] [place] [address], [place] [address] Nov, [facility] [address] [id number] [address] [place] [address], [place] [address] Nov, [facility] [address] [id number] [address] [place] [address], [place] [address] September, [facility] [address] [id number] [address] [place] [address], [place] [address] September, [facility] [address] [id number] [address] [place] [address], [place] [address] September, [facility] [address] [id number] [address] [place] [address], [place] [address] September, [facility] [address] [id number] [address] [place] [address], [place] [address] Aug, [facility] [address] [id number] [address] [place] [address], [place] [address] Aug, [facility] [address] [id number] [facility] [address] Aug, [facility] [address] [id number] [facility] [address] Aug, [facility] [address] [id number] [address] [place] [address], [place] [address] Aug, [facility] [address] [id number] [address] [place] [address], [place] [address] Aug, [facility] [address] [id number] [address] [place] [address], [place] [address] Aug, [facility] [address] [id number] [address] [place] [address], [place] [address] Aug, [facility] [address] [id number] [address] [place] [address], [place] [address] Aug, [facility] [address] [id number] [address] [place] [address], [place] [address] Aug, [facility] [address] [id number] [address] [place] [address], [place] [address] Aug, [facility] [address] [id number] [address] [place] [address], [place] [address] Aug, [facility] [address] [id number] [address] [place] [address], [place] [address] Jul, [facility] [address] [id number] [address] [place] [address], [place] [address] Jul, [facility] [address] [id number] [address] [place] [address], [place] [address] Jul, [facility] [address] [id number] [address] [place] [address], [place] [address] Jul, [facility] [address] [id number] [address] [place] [address], [place] [address] Jul, [facility] [address] [id number] [address] [place] [address], [place] [address] Jul, [facility] [address] [id number] [facility] [address] Jul, [facility] [address] [id number] [address] [place] [address], [place] [address] Jul, [facility] [address] [id number] [address] [place] [address], [place] [address] Jul, [facility] [address] [id number] [address] [place] [address], [place] [address] Jul, [facility] [address] [id number] [address] [place] [address], [place] [address] Jun, [facility] [address] [id number] [address] [place] [address], [place] [address] Jun, [facility] [address] [id number] [address] [place] [address], [place] [address] Jun, [facility] [address] [id number] [address] [place] [address], [place] [address] Jun, [facility] [address] [id number] [address] [place] [address], [place] [address] Jun, [facility] [address] [id number] [address] [place] [address], [place] [address] Jun, [facility] [address] [id number] [address] [place] [address], [place] [address] Jun, [facility] [address] [id number] [address] [place] [address], [place] [address] Jun, [facility] [address] [id number] [address] [place] [address], [place] [address] Jun, [facility] [address] [id number] [address] [place] [address], [place] [address] Jun, [facility] [address] [id number] [address] [place] [address], [place] [address] Jun, [facility] [address] [id number] [address] [place] [address], [place] [address] Jun, [facility] [address] [id number] [address] [place] [address], [place] [address] May, [facility] [address] [id number] [address] [place] [address], [place] [address] May, [facility] [address] [id number] [address] [place] [address], [place] [address] May, [facility] [address] [id number] [address] [place] [address], [place] [address] May, [facility] [address] [id number] [address] [place] [address], [place] [address] May, [facility] [address] [id number] [address] [place] [address], [place] [address] May, [facility] [address] [id number] [address] [place] [address], [place] [address] May, [facility] [address] [id number] [address] [place] [address], [place] [address] May, [facility] [address] [id number] [address] [place] [address], [place] [address] May, [facility] [address] [id number] [address] [place] [address], [place] [address] May, [facility] [address] [id number] [address] [place] [address], [place] [address] May, [facility] [address] [id number] [address] [place] [address], [place] [address] May, [facility] [address] [id number] [address] [place] [address], [place] [address] May, [facility] [address] [id number] [address] [place] [address], [place] [address] May, [facility] [address] [id number] [address] [place] [address], [place] [address] May, [facility] [address] [id number] [address] [place] [address], [place] [address] Apr, [facility] [address] [id number] [address] [place] [address], [place] [address] Apr, [facility] [address] [id number] [address] [place] [address], [place] [address] Apr, [facility] [address] [id number] [address] [place] [address], [place] [address] Apr, [facility] [address] [id number] [address] [place] [address], [place] [address] Mar, [facility] [address] [id number] [address] [place] [address], [place] [address] Mar, [facility] [address] [id number] [address] [place] [address], [place] [address] Mar, [facility] [address] [id number] [address] [place] [id number] Mar, [facility] [address] [id number] [address] [place] [id number] Mar, [facility] [address] [id number] [address] [place] [id number] Mar, [facility] [address] [id number] [address] [place] [id number] Mar, [facility] [address] [id number] [address] [place] [id number] Mar, [facility] [address] [id number] [address] [place] [address], [place] [address] Mar, [facility] [address] [id number] [address] [place] [id number] Mar, [facility] [address] [id number] [address] [place] [id number] Mar, [facility] [address] [id number] [address] [place] [address], [place] [id number] 05 Mar, 2013 [facility] [address] [id number] [address] [place] [address], [place] [address] 03 Feb, 2013 [facility] [address] [id number] [address] [place] [address], [place] [address] 18 Jan, 2012 [facility] [address] [id number] [address] [place] [address], [place] [address] 17 Jan, 2012 [facility] [address] [id number] [address] [place] [address], [place] [address] 06 Jan, 2012 [facility] [address] [id number] [address] [place] [address], [place] [address] 04 Jan, 2013 [facility] [address] [id number] [address] [place] [address], [place] [address] Jan, [facility] [address] [id number] [address] [place] [address], [place] [address] Dec, [facility] [address] [id number] [address] [place] [address], [place] [address] Dec, [facility] [address] [id number] [address] [place] [address], [place] [address] Dec, [facility] [address] [id number] [address] [place] [address], [place] [address] Dec, [facility] [address] [id number] [address] [place] [address], [place] [address] Dec, [facility] [address] [id number] [address] [place] [address], [place] [address] Dec, [facility] [address] [id number] [address] [place] [address], [place] [address] Dec, [facility] [address] [id number] [address] [place] [address], [place] [address] Dec, [facility] [address] [id number] [address] [place] [address], [place] [address] Nov, [facility] [address] [id number] [address] [place] [address], [place] [address] Nov, [facility] [address] [id number] [address] [place] [address], [place] [address] Nov, [facility] [address] [id number] [address] [place] [address], [place] [address] Nov, [facility] [address] [id number] [address] [place] [address], [place] [address] Nov, [facility] [address] [id number] [address] [place] [address], [place] [address] Nov, [facility] [address] [id number] [address] [place] [address], [place] [address] Oct, [facility] [place] [address] [id number] [place] [id number] Oct, [facility] [place] [address] [id number] [place] [id number] Oct, [facility] [place] [address] [id number] [place] [id number] Oct, [facility] [place] [address] [id number] [place] [id number] Oct, [facility] [address] [id number] [address] [place] [address], [place] [address] Oct, [facility] [address] [id number] [address] [place] [address], [place] [address] Oct, [facility] [address] [id number] [address] [place] [id number] Oct, [facility] [address] [id number] [address] [place] [id number] Oct, [facility] [address] [id number] [address] [place] [address], [place] [address] Oct, [facility] [address] [id number] [address] [place] [address], [place] [address] 05 Oct, 2012 [facility] [address] [id number] [address] [place] [address], [place] [address] September, [facility] [address] [id number] [address] [place] [address], [place] [address] Aug, [facility] [address] [id number] [address] [place] [address], [place] [address] Aug, [facility] [address] [id number] [address] [place] [address], [place] [address] Aug, [facility] [address] [id number] [address] [place] [address], [place] [address] Aug, [facility] [address] [id number] [address] [place] [address], [place] [address] Jul, [facility] [address] [id number] [address] [place] [address], [place] [address] Jul, [facility] [address] [id number] [address] [place] [address], [place] [address] Jul, [facility] [address] [id number] [address] [place] [address], [place] [address] Jul, [facility] [address] [id number] [address] [place] [address], [place] [address] Jul, [facility] [address] [id number] [address] [place] [address], [place] [address] Jun, [facility] [address] [id number] [address] [place] [address], [place] [address] Jun, [facility] [address] [id number] [address] [place] [address], [place] [address] Jun, [facility] [address] [id number] [address] [place] [address], [place] [address] May, [facility] [address] [id number] [address] [place] [address], [place] [address] May, [facility] [address] [id number] [address] [place] [address], [place] [address] 14 May, 2012 [facility] [address] [id number] [address] [place] [address], [place] [address] 11 May, 2012 [facility] [address] [id number] [address] [place] [address], [place] [address] 07 May, 2012 [facility] [address] [id number] [address] [place] [address], [place] [address] 04 May, 2012 [facility] [address] [id number] [address] [place] [address], [place] [address] 18 Apr, 2012 [facility] [address] [id number] [address] [place] [address], [place] [address] 18 Apr, 2012 [facility] [address] [id number] [address] [place] [address], [place] [address] 13 Apr, 2012 [facility] [address] [id number] [address] [place] [address], [place] [address] 13 Apr, 2012 [facility] [address] [id number] [address] [place] [address], [place] [id number] 13 Apr, 2012 [facility] [address] [id number] [address] [place] [address], [place] [address] Apr, [facility] [address] [id number] [address] [place] [address], [place] [address] Apr, [facility] [address] [id number] [address] [place] [address], [place] [address] Mar, [facility] [address] [id number] [address] [place] [address], [place] [address] Mar, [facility] [address] [id number] [address] [place] [address], [place] [address] Mar, [facility] [address] [id number] [address] [place] [address], [place] [address] Mar, [facility] [address] [id number] [address] [place] [address], [place] [address] 18 Jan, 2012 [facility] [address] [id number] [address] [place] [id number] Jan, [facility] [address] [facility] [id number] [address] [place] [id number] Jan, [facility] [address] [facility] [id number] [address] [place] [phone] Jan, [facility] [address] [facility] [id number] [place] [id number] Dec, [facility] [address] [facility] [id number] [address] [place] [id number] Dec, [facility] [address] [facility] [id number] [place] [id number] Dec, [facility] [address] [facility] [id number] [address] [place] [id number] Dec, [facility] [address] [facility] [id number] [address] [place] [id number] Dec, [facility] [address] [facility] [id number] [address] [place] [id number] Dec, [facility] [address] [facility] [id number] [address] [place] [id number] Nov, [facility] [address] [facility] [id number] [address] [place] [id number] Nov, [facility] [address] [facility] [id number] [address] [place] [id number] Nov, IMMUNIZATIONS No Known Immunizations SOCIAL HISTORY [...]
--- OUTSIDE RECORDS SUMMARY | 2019-11-03 19:21 | XMS REPORT ---
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 Name Role Phone Migration, Doctor Unavailable Unavailable PROBLEMS Type Condition ICD9-CM Code [id number] Code Onset Dates Condition S tatus SNOMED Code Problem Esophageal reflux K21.9 Active 24 7821884 Problem Dyslipidemia E78.5 12 Oct, 2017 Active 3709 66091 Problem Unspecified hypothyroidism E03.9 Act hernesto 80646839 Problem Generalized anxiety disorder F41.1 Apr, 200 8 Active 63949713 Problem Shortness of breath R06.02 Apr, Active 790478175 Problem Pulmonary embolus I26.99 13 Oct, 2011 Active 83524218 Problem Nonintractable migraine G43.009 08 Oct, 2015 Act hernesto 109136779 Problem Pre-diabetes R73.03 Active 8028803 02 Problem Morbid obesity with BMI of 50.0-59.9, adult Z68.43 Active 886278764 Problem Hypothyroidism E03.9 Active 22547 008 Problem Morbid obesity E66.01 Active 96353 6002 Problem Unspecified sleep apnea G47.30 Active 39932401 Problem Personal history of pulmonary embolism Z86.711 Active 790406854 Problem Osteoarthritis of right knee M17.11 13 May, 201 0 Active 285700245 Problem Renal stones N20.0 Active 1056864 7 Problem Coronary artery disease I25.10 Active 84786010 Problem Hyperlipidemia LDL goal <70 E78.5 Ac tive 89147816 Problem Migraine with aura and without status migrainosu s, not intractable G43.109 Active 1689855 ALLERGIES No Information ENCOUNTERS Encounter Location Date Diagnosis [facility] [address] [facility] [id number] [address] [place] [address] Aug, [facility] [address] [facility] [id number] [address] [place] [address] Aug, History of recurrent UTIs Z8 7.440 and Personal history of pulmonary embolism Z86.711 [facility] [address] [id number] [address] [place] [address] Jul, History of recurrent UTIs Z8 7.440 [facility] [address] [facility] [id number] [address] [place] [address] 07 Jun, 2019 Personal history of pulmonar y embolism Z86.711 [facility] [address] [facility] [id number] [address] [place] [address] 07 Jun, 2019 Personal history of pulmonar y embolism Z86.711 [facility] [address] [facility] [id number] [address] [place] [address] May, 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 and Dizziness R42 [facility] [address] [facility] [id number] [address] [place] [address] Apr, Non-recurrent acute suppurat hernesto otitis media of both ears without spontaneous rupture of tympanic membranes H66.003 [place] [address] [facility] [id number] [address] [place] [address] Feb, Pre-diabetes R73.03 and Hype rlipidemia LDL goal <70 E78.5 [place] [address] [facility] [id number] [address] [place] [address] Feb, [place] [address] [facility] [id number] [address] [place] [address] Feb, [facility] [address] [facility] [id number] [address] [place] [address] Jan, [place] [address] [facility] [id number] [address] [place] [address] Jan, [facility] [address] [facility] [id number] [address] [place] [address] Jan, Encounter for Medicare annua l wellness exam Z00.00 ; Hyperlipidemia LDL goal <70 E78.5 ; Coronary artery disease I25.10 ; Hypothyroidism E03.9 ; Osteoarthritis of right knee M17.11 ; Morbid obesity with BMI of 50.0-59.9, adult Z68.43 and Esophageal reflux K21.9 [facility] [address] [facility] [id number] [address] [place] [address] 13 Jan, 2019 Dysuria R30.0 and Hematuria, unspecified type R31.9 [facility] [address] [facility] [id number] [address] [place] [address] Jan, Hematuria, unspecified type R31.9 [facility] [address] [facility] [id number] [address] [place] [address] Dec, Hematuria, unspecified type R31.9 [facility] [address] [facility] [id number] [address] [place] [address] Nov, Hematuria, unspecified type R31.[id number] [place] [address] Nov, Other microscopic hematuria R31.29 [facility] [address] [facility] [id number] [address] [place] [address] Nov, Vaginal gena B37.3 ; Othe r microscopic hematuria R31.29 and Morbid obesity E66.01 [facility] [address] [facility] [id number] [address] [place] [address] Nov, [facility] [address] [facility] [id number] [address] [place] [address] Nov, [facility] [address] [facility] [id number] [address] [place] [address] Nov, UTI symptoms R39.9 and Morbi d obesity E66.01 [facility] [address] [facility] [id number] [address] [place] [address] Nov, [facility] [address] [facility] [id number] [address] [place] [address] September, [place] [address] [facility] [id number] [address] [place] [address] September, [place] [address] [facility] [id number] [address] [place] [address] Aug, Right foot pain M79.671 and Morbid obesity E66.01 [facility] [address] [facility] [id number] [address] [place] [address] Jul, Right foot pain M79.671 and Morbid obesity E66.01 [facility] [address] [facility] [id number] [address] [place] [address] Jul, Injury of right foot, initia l encounter S99.921A and Morbid obesity E66.01 [place] [address] [facility] [id number] [address] [place] [address] Jul, Recurrent syncope R55 and Mo rbid obesity E66.01 [place] [address] [facility] [id number] [address] [place] [address] Jul, [place] [address] [place] [id number] [address] [place] [address] Jun, Hematuria, unspecified type R31.9 and BMI 50.0-59.9, adult Z68.43 [place] [address] [place] [id number] [address] [place] [address] Jun, [id number] [place] [address] 04 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 [address] [facility] [id number] [address] [place] [address] May, Ankle pain, right M25.571 an d BMI 50.0-59.9, adult Z68.43 [place] [address] [facility] [id number] [address] [place] [address] May, [place] [address] [address] May, [facility] [address] [address] Apr, [facility] [address] [address] Apr, [place] [address] [address] Apr, [facility] [address] [address] Apr, BMI 50.0-59.9, adult Z68.43 and Weakness R53.1 [place] [address] [address] Apr, [facility] [address] [address] Apr, Dysuria R30.0 ; Hematuria R3 1.9 ; Renal lithiasis N20.0 and BMI 50.0-59.9, adult Z68.43 [place] [address] [address] Apr, [place] [address] [address] Apr, [place] [address] [address] Apr, Hypothyroidism E03.9 [place] [address] [address] 04 Apr, 2018 Burning with urination R30.0 ; Type 2 diabetes mellitus with diabetic neuropathic arthropathy, 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 ; Acute bilateral low back pain without sciatica M54.5 and BMI 50.0- 59.9, adult Z68.43 [place] [address] [address] 02 Mar, 2018 Hypothyroidism E03.9 [place] [address] [place] [id number] [address] [place] [address] Feb, [facility] [address] [address] 15 Jan, 2018 [facility] [address] [place] [id number] [address] [place] [address] 07 Jan, 2018 Acute non-recurrent maxillar y sinusitis J01.00 and BMI 50.0-59.9, adult Z68.43 [facility] [address] [place] [id number] [address] [place] [address] 04 Jan, 2018 Congestion of upper respirat ory tract J98.8 and BMI 50.0-59.9, adult Z68.43 [facility] [address] [address] Dec, Type 2 diabetes mellitus wit h diabetic neuropathic arthropathy, 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 ; Morbid obesity with BMI of 50.0-59.9, adult Z68.43 ; Hypothyroidism E03.9 ; Coronary artery disease I25.10 ; Hyperlipidemia LDL goal <70 E78.5 ; Right lower quadrant abdominal pain R10.31 and Acute cystitis with hematuria N30.01 [facility] [address] [place] [id number] [address] [place] [address] Dec, Migraine with aura and witho ut status migrainosus, not intractable G43.109 ; Dehydration symptoms R63.8 and BMI 50.0-59.9, adult Z68.43 [facility] [address] [place] [id number] [address] [place] [address] Oct, [place] [address] [address] Oct, [facility] [address] [place] [id number] [address] [place] [address] Oct, [facility] [address] [place] [id number] [address] [place] [address] September, [place] [address] [address] September, Type 2 diabetes mellitus wit h diabetic neuropathic arthropathy, 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 ; Hyperlipidemia, unspecified hyperlipidemia type E78.5 ; Personal history of pulmonary embolism Z86.711 ; Coronary artery disease I25.10 and Hypothyroidism E03.[address] [address] September, [place] [address] [address] Aug, Type 2 diabetes mellitus wit h [...] without aura and with status migrainosus G43.011 [place] [address] [address] Aug, [place] [address] [address] Aug, [place] [address] [address] Jul, Renal stones N20.0 [facility] [address] [address] Jun, Back pain M54.9 ; Kidney sto radha N20.0 and BMI 50.0-59.9, adult Z68.43 [place] [address] [address] Jun, [place] [address] [address] Apr, [place] [address] [place] [id number] [address] [place] [address] 15 Apr, 2017 [facility] [address] [address] Apr, Right foot pain M79.671 ; Ac ronnie gout involving toe of right foot, 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 and Arthritis M19.90 [place] [address] [place] [id number] [address] [place] [address] 06 Apr, 2017 Gastroesophageal reflux dise ase without esophagitis K21.9 [place] [address] [place] [id number] [address] [place] [address] 16 Mar, 2017 Hypothyroidism, unspecified E03.9 [place] [address] [place] [id number] [place] [address] Feb, [place] [address] [address] 25 Jan, 2017 Cervicalgia of occipito-atla nto-axial region M54.2 and Persistent headaches R51 [place] [address] [place] [id number] [address] [place] [address] 20 Jan, 2017 [place] [address] [address] 12 Jan, 2017 Intractable migraine without aura and with status migrainosus G43.011 ; Cervical spine pain M54.2 ; Hyperlipidemia, unspecified hyperlipidemia type E78.5 ; Hypothyroidism E03.9 and Metabolic syndrome E88.81 [place] [address] [place] [id number] [address] [place] [address] 11 Jan, 2017 Hypothyroidism, unspecified E03.9 [place] [address] [place] [id number] [address] [place] [address] Dec, Hypothyroidism, unspecified E03.9 [place] [address] [place] [id number] [address] [place] [address] Dec, Hypothyroidism E03.9 [place] [address] [address] Nov, Laceration of left great toe w/o foreign body w/o damage to nail, initial encounter S91.112A [facility] [place] [address] [address] Oct, Pain in left knee M25.562 an d Arthritis M19.90 [place] [address] [address] Oct, Hypothyroidism, unspecified E03.9 and Hyperlipidemia, unspecified hyperlipidemia type E78.[address] [address] Oct, Gastroesophageal reflux dise ase without esophagitis K21.9 [place] [address] [address] 14 Oct, 2016 Metabolic syndrome E88.81 ; Personal history of pulmonary embolism Z86.711 ; Other specified hypothyroidism E03.8 and Hyperlipidemia, unspecified hyperlipidemia type E78.5 [place] [address] [address] 13 Oct, 2016 Personal history of pulmonar y embolism Z86.711 ; Dysuria R30.0 ; Metabolic syndrome E88.81 ; Other specified hypothyroidism E03.8 ; Hyperlipidemia, unspecified hyperlipidemia type E78.5 and Morbid obesity with BMI of 50.0-59.9, adult Z68.43 [place] [address] [address] September, [facility] [address] [address] September, Wrist pain, left M25.532 and Acute pain of left knee M25.562 [place] [address] [address] Jul, Dysuria R30.0 [place] [address] [address] 30 Jul, 2016 Dysuria R30.[address] [address] 16 Jul, 2016 Left lower quadrant pain R10 .32 [place] [address] [address] 14 Jul, [address] [address] Jul, Coronary artery disease I25. 10 ; Family history of diabetes mellitus Z83.3 ; Morbid obesity with BMI of 50.0-59.9, adult Z68.43 ; Metabolic syndrome E88.81 ; Personal history of pulmonary embolism Z86.711 ; Gastroesophageal reflux disease without esophagitis K21.9 ; Hypothyroidism, unspecified E03.9 ; Hyperlipidemia, unspecified hyperlipidemia type E78.5 and Left lower quadrant pain R10.32 [facility] [address] [address] 09 Jul, 2016 [facility] [address] [address] 08 Jul, 2016 Morbid obesity with BMI of 5 0.0-59.9, adult Z68.43 [facility] [address] [address] Jul, Generalized abdominal pain R 10.84 [facility] [address] [address] 02 Jun, 2016 Muscle strain of right upper back, initial encounter S29.012A [facility] [address] [address] May, Foreign body (FB) in soft ti ssue M79.[address] [address] Mar, Hypothyroidism, unspecified E03.9 and Arthritis M19.[address] [address] Feb, Coronary artery disease I25. 10 ; Morbid obesity with BMI of 50.0- 59.9, adult Z68.43 ; Metabolic syndrome E88.81 ; Gastroesophageal reflux disease without esophagitis K21.9 ; Hypothyroidism, unspecified E03.9 ; Personal history of pulmonary embolism Z86.711 and Hyperlipidemia, unspecified hyperlipidemia type E78.5 [place] [address] [address] Feb, [facility] [address] [place] [id number] [place] [address] Jan, Acute right-sided thoracic b ack pain M54.6 [place] [address] [address] Jan, Acute pain of left knee M25. 562 [place] [address] [address] Dec, Dysuria R30.0 ; Metabolic sy ndrome E88.81 ; Acute pain of left knee M25.562 ; Acute cystitis with hematuria N30.01 and Acute left eye pain H57.12 [place] [address] [address] Dec, [place] [address] [address] Dec, [place] [address] [place] [id number] [place] [address] Dec, Hypothyroidism, unspecified E03.9 [place] [address] [address] Dec, [place] [address] [address] Nov, Peripheral edema R60.9 and A cute pain of left knee M25.562 [facility] [address] [address] September, [place] [address] [place] [id number] [address] [place] [address] September, Metabolic syndrome E88.81 an d Allergy, subsequent encounter T78.40XD [facility] [address] [place] [id number] [address] [place] [address] September, Muscle strain T14.8 [place] [address] [address] Aug, Chest pressure R07.89 ; Fountain bolic syndrome E88.81 ; Morbid obesity with BMI of 50.0-59.9, adult Z68.43 ; Esophageal reflux 530.81 and Shortness of breath R06.02 [place] [address] [address] Aug, [place] [address] [address] Aug, [place] [address] [address] Aug, Hypothyroidism, unspecified E03.[address] [address] Aug, Routine health maintenance Z 00.00 [facility] [place] [address] [place] [id number] [address] [place] [address] Aug, [place] [address] [place] [id number] [address] [place] [address] Jul, Routine health maintenance Z 00.00 ; Family history of diabetes mellitus Z83.3 ; Family history of cancer Z80.9 and Morbid obesity with BMI of 50.0-59.9, adult Z68.43 [facility] [address] [place] [id number] [address] [place] [address] Jul, Allergic rhinitis J30.9 and Postnasal drip R09.82 [place] [address] [place] [id number] [address] [place] [address] Jul, Influenza J11.1 [facility] [address] [id number] [address] [place] [address] Jul, Dysuria R30.0 [facility] [address] [id number] [address] [place] [address] Apr, [facility] [address] [id number] [address] [place] [address] Mar, Acute upper respiratory infe ction, unspecified J06.9 and Hypothyroidism E03.9 [facility] [address] [id number] [address] [place] [address] Mar, [facility] [address] [id number] [address] [place] [address] Feb, Coronary artery disease I25. 10 [facility] [address] [id number] [address] [place] [address] Feb, Left foot pain M79.672 [facility] [address] [id number] [address] [place] [address] Jan, UTI (urinary tract infection ) 599.0 [facility] [address] [id number] [address] [place] [address] Jan, Urinary tract infection, sit e not specified 599.0 [facility] [address] [id number] [address] [place] [address] Jan, Urinary tract infection, sit e not specified 599.0 [facility] [address] [id number] [address] [place] [address] Jan, [facility] [address] [id number] [address] [place] [address] Dec, Headache 784.0 [facility] [address] [id number] [address] [place] [address] Dec, Urinary tract infection, sit e not specified 599.0 [facility] [address] [id number] [address] [place] [address] Dec, Urinary tract infection, sit e not specified 599.0 [facility] [address] [id number] [address] [place] [address] Dec, Urinary tract infection, sit e not specified 599.0 [facility] [address] [id number] [address] [place] [address] Nov, Unspecified sleep apnea 780. 57 ; Encounter for long-term (current) use of anticoagulants V58.61 ; Routine general medical examination at health care facility V70.0 and Arthritis of both knees 716.96 [facility] [address] [id number] [address] [place] [address] September, Cat bite of hand 882.0 and R ectal bleeding 569.3 [facility] [address] [id number] [address] [place] [address] Aug, [facility] [address] [id number] [address] [place] [address] Aug, [facility] [address] [id number] [address] [place] [address] Jul, [facility] [address] [id number] [address] [place] [address] Jul, [facility] [address] [id number] [address] [place] [address] Jul, [facility] [address] [id number] [address] [place] [address] Jul, [facility] [address] [id number] [address] [place] [address] Jul, [facility] [address] [id number] [address] [place] [address] Jul, [facility] [address] [id number] [address] [place] [address] Jul, [facility] [address] [id number] [address] [place] [address], [place] [address] Jul, [facility] [address] [id number] [address] [place] [address], [place] [address] May, [facility] [address] [id number] [address] [place] [address], [place] [address] May, [facility] [address] [id number] [address] [place] [address], [place] [address] May, [facility] [address] [id number] [address] [place] [address], [place] [address] May, [facility] [address] [id number] [address] [place] [address], [place] [address] May, [facility] [address] [id number] [address] [place] [address], [place] [address] May, [facility] [address] [id number] [address] [place] [address], [place] [address] May, [facility] [address] [id number] [address] [place] [address], [place] [id number] Mar, [facility] [address] [id number] [address] [place] [address], [place] [id number] Mar, [facility] [address] [id number] [address] [place] [address], [place] [id number] 08 Jan, 2013 [facility] [address] [id number] [address] [place] [address], [place] [id number] 08 Sep, 2013 [facility] [address] [id number] [address] [place] [address], [place] [id number] 08 Sep, 2013 [facility] [address] [id number] [address] [place] [address], [place] [id number] 08 Sep, 2013 [facility] [address] [id number] [address] [place] [address], [place] [id number] 05 Sep, 2013 [facility] [address] [id number] [address] [place] [address], [place] [id number] Jan[facility] [address] [id number] [address] [place] [address], [place] [id number] Dec, [facility] [address] [id number] [address] [place] [address], [place] [id number] Dec, [facility] [address] [id number] [address] [place] [address], [place] [id number] Dec, [facility] [address] [id number] [address] [place] [address], [place] [address] Dec, [facility] [address] [id number] [address] [place] [address], [place] [address] Dec, [facility] [address] [id number] [address] [place] [address], [place] [address] Dec, [facility] [address] [id number] [address] [place] [address], [place] [id number] Dec, [facility] [address] [id number] [address] [place] [address], [place] [address] Dec, [facility] [address] [id number] [address] [place] [address], [place] [address] Dec, [facility] [address] [id number] [address] [place] [address], [place] [address] Dec, [facility] [address] [id number] [address] [place] [address], [place] [address] Nov, [facility] [address] [id number] [address] [place] [address], [place] [address] Nov, [facility] [address] [id number] [address] [place] [address], [place] [address] September, [facility] [address] [id number] [address] [place] [address], [place] [address] September, [facility] [address] [id number] [address] [place] [address], [place] [address] September, [facility] [address] [id number] [address] [place] [address], [place] [address] September, [facility] [address] [id number] [address] [place] [address], [place] [address] Aug, [facility] [address] [id number] [address] [place] [address], [place] [address] Aug, [facility] [address] [id number] [address] [place] [address], [place] [address] Aug, [facility] [address] [id number] [address] [place] [address], [place] [address] Aug, [facility] [address] [id number] [address] [place] [address], [place] [address] Aug, [facility] [address] [id number] [address] [place] [address], [place] [address] Aug, [facility] [address] [id number] [address] [place] [address], [place] [address] Aug, [facility] [address] [id number] [address] [place] [address], [place] [address] Aug, [facility] [address] [id number] [address] [place] [address], [place] [address] Aug, [facility] [address] [id number] [address] [place] [address], [place] [address] Aug, [facility] [address] [id number] [address] [place] [address], [place] [address] Aug, [facility] [address] [id number] [address] [place] [address], [place] [address] Aug, [facility] [address] [id number] [address] [place] [address], [place] [address] Jul, [facility] [address] [id number] [address] [place] [address], [place] [address] Jul, [facility] [address] [id number] [address] [place] [address], [place] [address] Jul, [facility] [address] [id number] [address] [place] [address], [place] [address] Jul, [facility] [address] [id number] [address] [place] [address], [place] [address] Jul, [facility] [address] [id number] [address] [place] [address], [place] [address] Jul, [facility] [address] [id number] [address] [place] [address], [place] [address] 05 Jul, 2013 [facility] [address] [id number] [address] [place] [address], [place] [address] Jul, [facility] [address] [id number] [address] [place] [address], [place] [address] Jul, [facility] [address] [id number] [address] [place] [address], [place] [address] Jul, [facility] [address] [id number] [address] [place] [address], [place] [address] Jun, [facility] [address] [id number] [address] [place] [address], [place] [address] Jun, [facility] [address] [id number] [address] [place] [address], [place] [address] 17 Jun, 2013 [facility] [address] [id number] [address] [place] [address], [place] [address] 17 Jun, 2013 [facility] [address] [id number] [address] [place] [address], [place] [address] Jun, [facility] [address] [id number] [address] [place] [address], [place] [address] Jun, [facility] [address] [id number] [address] [place] [address], [place] [address] Jun, [facility] [address] [id number] [address] [place] [address], [place] [address] Jun, [facility] [address] [id number] [address] [place] [address], [place] [address] Jun, [facility] [address] [id number] [address] [place] [address], [place] [address] Jun, [facility] [address] [id number] [address] [place] [address], [place] [address] Jun, [facility] [address] [id number] [address] [place] [address], [place] [address] Jun, [facility] [address] [id number] [address] [place] [address], [place] [address] May, [facility] [address] [id number] [address] [place] [address], [place] [address] May, [facility] [address] [id number] [address] [place] [address], [place] [address] May, [facility] [address] [id number] [address] [place] [address], [place] [address] May, [facility] [address] [id number] [address] [place] [address], [place] [address] May, [facility] [address] [id number] [address] [place] [address], [place] [address] May, [facility] [address] [id number] [address] [place] [address], [place] [address] May, [facility] [address] [id number] [address] [place] [address], [place] [address] May, [facility] [address] [id number] [address] [place] [address], [place] [address] May, [facility] [address] [id number] [address] [place] [address], [place] [address] May, [facility] [address] [id number] [address] [place] [address], [place] [address] May, [facility] [address] [id number] [address] [place] [address], [place] [address] May, [facility] [address] [id number] [address] [place] [address], [place] [address] May, [facility] [address] [id number] [address] [place] [address], [place] [address] May, [facility] [address] [id number] [address] [place] [address], [place] [address] May, [facility] [address] [id number] [address] [place] [address], [place] [address] Apr, [facility] [address] [id number] [address] [place] [address], [place] [address] Apr, [facility] [address] [id number] [address] [place] [address], [place] [address] Apr, [facility] [address] [id number] [address] [place] [address], [place] [address] Apr, [facility] [address] [id number] [address] [place] [address], [place] [address] Mar, [facility] [address] [id number] [address] [place] [address], [place] [address] Mar, [facility] [address] [id number] [address] [place] [address], [place] [address] Mar, [facility] [address] [id number] [address] [place] [address], [place] [address] Mar, [facility] [address] [id number] [address] [place] [address], [place] [address] Mar, [facility] [address] [id number] [address] [place] [address], [place] [address] Mar, [facility] [address] [id number] [address] [place] [address], [place] [address] Mar, [facility] [address] [id number] [address] [place] [address], [place] [address] Mar, [facility] [address] [id number] [address] [place] [address], [place] [address] 05 Mar, 2013 [facility] [address] [id number] [address] [place] [address], [place] [address] 05 Mar, 2013 [facility] [address] [id number] [address] [place] [address], [place] [address] Mar, [facility] [address] [id number] [address] [place] [address], [place] [address] Mar, [facility] [address] [id number] [address] [place] [address], [place] [address] Feb, [facility] [address] [id number] [address] [place] [address], [place] [id number] 18 Jan, 2013 [facility] [address] [id number] [address] [place] [address], [place] [address] 17 Jan, 2013 [facility] [address] [id number] [address] [place] [address], [place] [address] 06 Jan, 2013 [facility] [address] [id number] [address] [place] [address], [place] [id number] 04 Jan, 2013 [facility] [address] [id number] [address] [place] [address], [place] [id number] 03 Jan, 2013 [facility] [address] [id number] [address] [place] [address], [place] [address] Dec, [facility] [address] [id number] [address] [place] [address], [place] [address] Dec, [facility] [address] [id number] [address] [place] [address], [place] [address] Dec, [facility] [address] [id number] [address] [place] [address], [place] [id number] 16 Dec, 2012 [facility] [address] [id number] [address] [place] [address], [place] [address] Dec, [facility] [address] [id number] [address] [place] [address], [place] [address] Dec, [facility] [address] [id number] [address] [place] [address], [place] [address] Dec, [facility] [address] [id number] [address] [place] [address], [place] [address] Dec, [facility] [address] [id number] [address] [place] [address], [place] [address] Nov, [facility] [address] [id number] [address] [place] [address], [place] [address] Nov, [facility] [address] [id number] [address] [place] [address], [place] [address] Nov, [facility] [address] [id number] [address] [place] [address], [place] [address] Nov, [facility] [address] [id number] [address] [place] [address], [place] [address] Nov, [facility] [address] [id number] [address] [place] [address], [place] [address] Nov, [facility] [address] [id number] [address] [place] [address], [place] [address] Oct, [facility] [address] [id number] [place] [id number] Oct, [facility] [address] [id number] [place] [id number] Oct, [facility] [address] [id number] [place] [id number] Oct, [facility] [address] [id number] [place] [id number] Oct, [facility] [address] [id number] [address] [place] [address], [place] [address] Oct, [facility] [address] [id number] [address] [place] [address], [place] [address] Oct, [facility] [address] [id number] [address] [place] [address], [place] [address] Oct, [facility] [address] [id number] [address] [place] [address], [place] [id number] 11 Oct, 2012 [facility] [address] [id number] [address] [place] [address], [place] [address] Oct, [facility] [address] [id number] [address] [place] [address], [place] [address] Oct, [facility] [address] [id number] [address] [place] [address], [place] [address] September, [facility] [address] [id number] [address] [place] [address], [place] [address] Aug, [facility] [address] [id number] [address] [place] [address], [place] [address] Aug, [facility] [address] [id number] [address] [place] [address], [place] [address] Aug, [facility] [address] [id number] [address] [place] [address], [place] [address] Aug, [facility] [address] [id number] [address] [place] [address], [place] [address] Jul, [facility] [address] [id number] [address] [place] [address], [place] [address] Jul, [facility] [address] [id number] [address] [place] [address], [place] [address] Jul, [facility] [address] [id number] [address] [place] [address], [place] [address] Jul, [facility] [address] [id number] [address] [place] [address], [place] [address] Jul, [facility] [address] [id number] [address] [place] [address], [place] [address] Jun, [facility] [address] [id number] [address] [place] [address], [place] [address] Jun, [facility] [address] [id number] [address] [place] [address], [place] [address] Jun, [facility] [address] [id number] [address] [place] [address], [place] [address] May, [facility] [address] [id number] [address] [place] [address], [place] [id number] 24 May, 2012 [facility] [address] [id number] [address] [place] [address], [place] [id number] 14 May, 2012 [facility] [address] [id number] [address] [place] [address], [place] [address] May, [facility] [address] [id number] [address] [place] [address], [place] [address] May, [facility] [address] [id number] [address] [place] [address], [place] [address] May, [facility] [address] [id number] [address] [place] [address], [place] [id number] 18 Apr, 2012 [facility] [address] [id number] [address] [place] [address], [place] [id number] 18 Apr, 2012 [facility] [address] [id number] [address] [place] [address], [place] [address] Apr, [facility] [address] [id number] [address] [place] [address], [place] [address] Apr, [facility] [address] [id number] [address] [place] [address], [place] [address] Apr, [facility] [address] [id number] [address] [place] [address], [place] [address] Apr, [facility] [address] [id number] [address] [place] [address], [place] [id number] Apr, [facility] [address] [id number] [address] [place] [address], [place] [address] Mar, [facility] [address] [id number] [address] [place] [address], [place] [id number] Mar, [facility] [address] [id number] [address] [place] [address] Mar, [facility] [address] [id number] [address] [place] [address] Mar, [facility] [address] [id number] [address] [place] [address] Jan, [facility] [address] [id number] [address] [place] [address] Jan, [facility] [address] [id number] [address] [place] [id number] Jan, [facility] [address] [id number] [address] [place] [address] Jan, [facility] [address] [id number] [place] [id number] Dec, [facility] [address] [id number] [address] [place] [address] Dec, [facility] [address] [id number] [place] [id number] Dec, [facility] [address] [id number] [address] [place] [address] Dec, [facility] [address] [id number] [address] [place] [address] Dec, [facility] [address] [id number] [address] [place] [address] Dec, [facility] [address] [id number] [address] [place] [id number] Nov, [facility] [address] [id number] [address] [place] [id number] Nov, [facility] [address] [id number] [address] [place] [address] Nov, IMMUNIZATIONS No Known Immunizations SOCIAL HISTORY [...] Stent placed 08/19/2017 Hospitalization History Syncope- [facility] [place] 12/2017 Hospitalization History heart cath ( 06/23/18-06/25/2018) Hospitalization History heart problem, overnight stay 9
--- OUTSIDE RECORDS SUMMARY | 2019-11-03 19:22 | XMS REPORT ---
Author Author Anca Lucero Doctor Organization [facility] Address Unknown Phone Unavailable Care Team Providers Care Pit Manager Name Role Phone Migration, Doctor Unavailable Unavailable PROBLEMS Type Condition ICD9-CM Code UDM43-YC Code Onset Dates Condition S tatus SNOMED Code Problem Esophageal reflux K21.9 Active 24 6861555 Problem Dyslipidemia E78.5 12 Oct, 2017 Active 3709 45845 Problem Unspecified hypothyroidism E03.9 Act hernesto 46107677 Problem Generalized anxiety disorder F41.1 Apr, 200 8 Active 07473492 Problem Shortness of breath R06.02 Apr, Active 793434071 Problem Pulmonary embolus I26.99 13 Oct, 2011 Active 66757404 Problem Nonintractable migraine G43.009 08 Oct, 2015 Act hernesto 326434953 Problem Pre-diabetes R73.03 Active 1906924 02 Problem Morbid obesity with BMI of 50.0-59.9, adult Z68.43 Active 090594973 Problem Hypothyroidism E03.9 Active 05912 008 Problem Morbid obesity E66.01 Active 66321 6002 Problem Unspecified sleep apnea G47.30 Active 26592702 Problem Personal history of pulmonary embolism Z86.711 Active 563598141 Problem Osteoarthritis of right knee M17.11 13 May, 201 0 Active 875299029 Problem Renal stones N20.0 Active 9902323 7 Problem Coronary artery disease I25.10 Active 27519550 Problem Hyperlipidemia LDL goal <70 E78.5 Ac tive 23667066 Problem Migraine with aura and without status migrainosu s, not intractable G43.109 Active 7673203 ALLERGIES No Information ENCOUNTERS Encounter Location Date Diagnosis [facility] [place] [address] [id number] [place] [address] 07 Jun, 2019 Personal history of pulmonary embolism Z 86.711 [facility] [place] [address] [id number] [place] [address] 07 Jun, 2019 Personal history of pulmonary embolism Z 86.711 [place] [address] [id number] [place] [address] May, [facility] [address] [place] [address] May, 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 and Dizziness R42 [facility] [address] [facility] [id number] [address] [place] [address] Apr, Non-recurrent acute suppurat hernesto otitis media of both ears without spontaneous rupture of tympanic membranes H66.003 [place] [address] [address] 08 Feb, 2019 Pre-diabetes R73.03 and Hyperlipidemia L DL goal <70 E78.5 [place] [address] [place] [id number] [place] [address] Feb, [place] [address] [address] Feb, [place] [address] [place] [id number] [place] [address] Jan, [place] [address] [address] Jan, [place] [address] [address] 18 Jan, 2019 Encounter for Medicare annual wellness e xam Z00.00 ; Hyperlipidemia LDL goal <70 E78.5 ; Coronary artery disease I25.10 ; Hypothyroidism E03.9 ; Osteoarthritis of right knee M17.11 ; Morbid obesity with BMI of 50.0-59.9, adult Z68.43 and Esophageal reflux K21.9 [place] [address] [address] Jan, Dysuria R30.0 and Hematuria, unspecified type R31.9 [place] [address] [place] [id number] [place] [address] Jan, Hematuria, unspecified type R31.9 [place] [address] [place] [address] [place] [address] Dec, Hematuria, unspecified type R31.9 [facility] [place] [address] [address] Nov, Hematuria, unspecified type R31.[address] [place] [address] Nov, Other microscopic hematuria R31.29 [place] [address] [address] Nov, Vaginal gena B37.3 ; Other microscopi c hematuria R31.29 and Morbid obesity E66.01 [place] [address] [address] Nov, [place] [address] [address] Nov, [facility] N [place] [id number] [address] [place] [address] Nov, UTI symptoms R39.9 and Morbi d obesity E66.01 [place] [address] [address] Nov, [place] [address] [address] September, [place] [address] [address] September, [place] [address] [address] Aug, Right foot pain M79.671 and Morbid obesi ty E66.01 [place] [address] [address] Jul, Right foot pain M79.671 and Morbid obesi ty E66.01 [facility] [address] [facility] [id number] [address] [place] [address] Jul, Injury of right foot, initia l encounter S99.921A and Morbid obesity E66.01 [place] [address] [place] [id number] [place] [address] Jul, Recurrent syncope R55 and Morbid obesity E66.01 [place] [address] [place] [id number] [place] [address] Jul, [place] [address] [address] Jun, Hematuria, unspecified type R31.9 and BM I 50.0-59.9, adult Z68.43 [place] [address] [place] [id number] [place] [address] 07 Jun, 2018 [place] [address] [place] [address] 04 Jun, 2018 snf current use of ant icoagulant Z79.01 [facility] N [facility] [id number] [address] [place] [address] May, Ankle pain, right M25.571 an d BMI 50.0-59.9, adult Z68.43 [place] [address] [address] May, [place] [address] [address] May, [place] [address] [address] Apr, [place] [address] [address] Apr, [place] [address] [address] Apr, [facility] [address] [facility] [id number] [address] [place] [address] Apr, BMI 50.0-59.9, adult Z68.43 and Weakness R53.1 [place] [address] [address] Apr, [facility] [place] [address] [address] Apr, Dysuria R30.0 ; Hematuria R3 1.9 ; Renal lithiasis N20.0 and BMI 50.0-59.9, adult Z68.43 [place] [address] [address] Apr, [place] [address] [address] Apr, [place] [address] [address] Apr, Hypothyroidism E03.9 [place] [address] [address] Apr, Burning with urination R30.0 ; 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, 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 ; Acute bilateral low back pain without sciatica M54.5 and BMI 50.0-59.9, adult Z68.43 [place] [address] [address] Mar, Hypothyroidism E03.9 [place] [address] [address] Feb, [facility] [place] [address] [address] 15 Jan, 2018 [place] [address] [address] 07 Jan, 2018 Acute non-recurrent maxillary sinusitis J01.00 and BMI 50.0-59.9, adult Z68.43 [facility] [address] [address] 04 Jan, 2018 Congestion of upper respirat ory tract J98.8 and BMI 50.0-59.9, adult Z68.43 [place] [address] [address] Dec, Type 2 diabetes mellitus with diabetic n europathic arthropathy, 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 ; Morbid obesity with BMI of 50.0-59.9, adult Z68.43 ; Hypothyroidism E03.9 ; Coronary artery disease I25.10 ; Hyperlipidemia LDL goal <70 E78.5 ; Right lower quadrant abdominal pain R10.31 and Acute cystitis with hematuria N30.01 [facility] [address] [facility] [id number] [address] [place] [address] Dec, Migraine with aura and witho ut status migrainosus, not intractable G43.109 ; Dehydration symptoms R63.8 and BMI 50.0-59.9, adult Z68.43 [place] [address] [address] Oct, [place] [address] [address] Oct, [place] [address] [address] Oct, [facility] [place] [address] [address] September, [place] [address] [address] September, Type 2 diabetes mellitus with diabetic n europathic arthropathy, 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 ; Hyperlipidemia, unspecified hyperlipidemia type E78.5 ; Personal history of pulmonary embolism Z86.711 ; Coronary artery disease I25.10 and Hypothyroidism E03.9 [facility] [place] [address] [address] September, [place] [address] [address] Aug, Type 2 diabetes mellitus with diabetic n europathic arthropathy, 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 ; Hyperlipidemia, unspecified hyperlipidemia type E78.5 ; Arthritis M19.90 ; Hypothyroidism E03.9 ; Renal stones N20.0 ; BMI 50.0-59.9, adult Z68.43 ; Personal history of pulmonary embolism Z86.711 ; Coronary artery disease I25.10 ; Gastroesophageal reflux disease without esophagitis K21.9 and Intractable migraine without aura and with status migrainosus G43.011 [place] [address] [address] Aug, [place] [address] [address] Aug, [place] [address] [address] Jul, Renal stones N20.0 [facility] [address] [facility] [id number] [address] [place] [address] Jun, Back pain M54.9 ; Kidney sto radha N20.0 and BMI 50.0-59.9, adult Z68.43 [place] [address] [address] Jun, [place] [address] [address] Apr, [place] [address] [address] Apr, [place] [address] [address] Apr, Right foot pain M79.671 ; Acute gout inv olving toe of right foot, 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 and Arthritis M19.90 [place] [address] [address] 06 Apr, 2017 Gastroesophageal reflux disease without esophagitis K21.9 [place] [address] [address] 16 Mar, 2017 Hypothyroidism, unspecified E03.9 [place] [address] [address] 11 Feb, 2017 [place] [address] [address] 25 Jan, 2017 Cervicalgia of hpchityt-dxcadxv-scnrb re gion M54.2 and Persistent headaches R51 [place] [address] [address] 20 Jan, 2017 [place] [address] [address] 12 Jan, 2017 Intractable migraine without aura and wi th status migrainosus G43.011 ; Cervical spine pain M54.2 ; Hyperlipidemia, unspecified hyperlipidemia type E78.5 ; Hypothyroidism E03.9 and Metabolic syndrome E88.81 [place] [address] [address] Jan, Hypothyroidism, unspecified E03.9 [place] [address] [address] Dec, Hypothyroidism, unspecified E03.9 [place] [address] [address] Dec, Hypothyroidism E03.9 [place] [address] [address] Nov, Laceration of left great toe w/o foreign body w/o damage to nail, initial encounter S91.112A [facility] [address] [facility] [id number] [address] [place] [address] Oct, Pain in left knee M25.562 an d Arthritis M19.90 [place] [address] [address] Oct, Hypothyroidism, unspecified E03.9 and Hy perlipidemia, unspecified hyperlipidemia type E78.5 [place] [address] [address] Oct, Gastroesophageal reflux disease without esophagitis K21.9 [place] [address] [address] 14 Oct, 2016 Metabolic syndrome E88.81 ; Personal his tory of pulmonary embolism Z86.711 ; Other specified hypothyroidism E03.8 and Hyperlipidemia, unspecified hyperlipidemia type E78.[address] [address] 13 Oct, 2017 Personal history of pulmonary embolism Z 86.711 ; Dysuria R30.0 ; Metabolic syndrome E88.81 ; Other specified hypothyroidism E03.8 ; Hyperlipidemia, unspecified hyperlipidemia type E78.5 and Morbid obesity with BMI of 50.0-59.9, adult Z68.[address] [address] September, [facility] [address] [address] September, Wrist pain, left M25.532 and Acute pain of left knee M25.[address] [address] Jul, Dysuria R30.[address] [address] Jul, Dysuria R30.[address] [address] Jul, Left lower quadrant pain R10.[address] [address] Jul, [address] [address] Jul, Coronary artery disease I25.10 ; Family history of diabetes mellitus Z83.3 ; Morbid obesity with BMI of 50.0-59.9, adult Z68.43 ; Metabolic syndrome E88.81 ; Personal history of pulmonary embolism Z86.711 ; Gastroesophageal reflux disease without esophagitis K21.9 ; Hypothyroidism, unspecified E03.9 ; Hyperlipidemia, unspecified hyperlipidemia type E78.5 and Left lower quadrant pain R10.32 [facility] [place] [id number] [address] [place] [address] Jul, [facility] [address] [address] Jul, Morbid obesity with BMI of 5 0.0-59.9, adult Z68.43 [facility] [address] [address] Jul, Generalized abdominal pain R 10.84 [facility] [address] [address] 02 Jun, 2016 Muscle strain of right upper back, initial encounter S29.012A [facility] [address] [address] May, Foreign body (FB) in soft ti ssue M79.[address] [address] Mar, Hypothyroidism, unspecified E03.9 and Ar thritis M19.[address] [address] Feb, Coronary artery disease I25.10 ; Morbid obesity with BMI of 50.0-59.9, adult Z68.43 ; Metabolic syndrome E88.81 ; Gastroesophageal reflux disease without esophagitis K21.9 ; Hypothyroidism, unspecified E03.9 ; Personal history of pulmonary embolism Z86.711 and Hyperlipidemia, unspecified hyperlipidemia type E78.[address] [address] Feb, [facility] [address] [address] Jan, Acute right-sided thoracic b ack pain M54.[address] [address] Jan, Acute pain of left knee M25.[address] [address] Dec, Dysuria R30.0 ; Metabolic syndrome E88.8 1 ; Acute pain of left knee M25.562 ; Acute cystitis with hematuria N30.01 and Acute left eye pain H57.[address] [address] Dec, [place] [address] [address] Dec, [place] [address] [address] Dec, Hypothyroidism, unspecified E03.9 [place] [address] [address] Dec, [place] [address] [address] Nov, Peripheral edema R60.9 and Acute pain of left knee M25.562 [facility] [place] [address] [place] [id number] [address] [place] [address] September, [place] [address] [address] September, Metabolic syndrome E88.81 and Allergy, s ubsequent encounter T78.40XD [facility] [place] [address] [facility] [id number] [address] [place] [address] September, Muscle strain T14.8 [place] [address] [address] Aug, Chest pressure R07.89 ; Metabolic syndro me E88.81 ; Morbid obesity with BMI of 50.0-59.9, adult Z68.43 ; Esophageal reflux 530.81 and Shortness of breath R06.02 [place] [address] [address] Aug, [place] [address] [address] Aug, [place] [address] [address] Aug, Hypothyroidism, unspecified E03.9 [place] [address] [address] Aug, Routine health maintenance Z00.00 [facility] [place] [address] [facility] [id number] [address] [place] [address] Aug, [place] [address] [address] 31 Jul, 2015 Routine health maintenance Z00.00 ; Fami ly history of diabetes mellitus Z83.3 ; Family history of cancer Z80.9 and Morbid obesity with BMI of 50.0-59.9, adult Z68.43 [facility] [place] [address] [place] [id number] [address] [place] [address] 28 Jul, 2015 Allergic rhinitis J30.9 and Postnasal drip R09.[address] [address] 18 Jul, 2015 Influenza J11.1 [facility] [address] [address] Jul, Dysuria R30.0 [place] [address] [address] Apr, [address] [address] Mar, Acute upper respiratory infection, unspe cified J06.9 and Hypothyroidism E03.[address] [address] Mar, [place] [address] [address] Feb, Coronary artery disease I25.10 [place] [address] [address] Feb, Left foot pain M79.[address] [address] Jan, UTI (urinary tract infection) 599.[address] [address] Jan, Urinary tract infection, site not specif ied 599.0 [facility] [place] [address] [place] [id number] [place] [address] Jan, Urinary tract infection, site not specif ied 599.0 [facility] [place] [address] [address] Jan, [facility] [place] [address] [address] Dec, Headache 784.0 [facility] [place] [address] [address] Dec, Urinary tract infection, site not specif ied 599.0 [place] [address] [address] Dec, Urinary tract infection, site not specif ied 599.0 [place] [address] [address] Dec, Urinary tract infection, site not specif ied 599.0 [place] [address] [address] Nov, Unspecified sleep apnea 780.57 ; Encount er for long-term (current) use of anticoagulants V58.61 ; Routine general medical examination at health care facility V70.0 and Arthritis of both knees 716.96 [place] [address] [address] September, Cat bite of hand 882.0 and Rectal bleedi ng 569.3 [facility] [place] [address] [place] [id number] [place] [address] Aug, [facility] [place] [address] [address] Aug, [facility] [place] [address] [address] Jul, [facility] [place] [address] [address] Jul, [facility] [place] [address] [place] [address] Jul, [facility] [address] [id number] [place] [address] Jul, [facility] [address] [id number] [place] [address] Jul, [facility] [address] [id number] [place] [address] Jul, [facility] [address] [id number] [place] [address] Jul, [facility] [address] [id number] [place] [address] Jul, [facility] [address] [id number] [place] [address] May, [facility] [address] [id number] [place] [address] May, [facility] [address] [id number] [place] [address] May, [facility] [address] [id number] [place] [address] May, [facility] [address] [id number] [place] [address] May, [facility] [address] [id number] [place] [address] May, [facility] [address] [id number] [place] [address] May, [facility] [address] [id number] [place] [address] Mar, [facility] [address] [id number] [place] [address] Mar, [facility] [address] [id number] [place] [address] Jan, [facility] [address] [id number] [place] [address] Jan, [facility] [address] [id number] [place] [address] 08 Jan, 2013 [facility] [address] [facility] [id number] [place] [address] Jan, 2013 [facility] [address] [facility] [id number] [place] [address] Jan, 2013 [facility] [address] [id number] [place] [address] Jan, 2013 [facility] [address] [facility] [id number] [place] [address] Dec, [facility] [address] [id number] [place] [address] Dec, [facility] [address] [id number] [place] [address] Dec, [facility] [address] [id number] [place] [address] Dec, [facility] [address] [id number] [place] [address] Dec, [facility] [address] [id number] [place] [address] Dec, [facility] [address] [id number] [place] [address] Dec, [facility] [address] [id number] [place] [address] Dec, [facility] [address] [id number] [place] [address] Dec, [facility] [address] [facility] [id number] [place] [address] Dec, [facility] [address] [id number] [place] [address] Nov, [facility] [address] [id number] [place] [address] Nov, [facility] [address] [id number] [place] [address] September, [facility] [address] [facility] [id number] [place] [address] September, [facility] [address] [facility] [id number] [facility] [place] [address] September, [facility] [place] [facility] [address] [id number] [place] [address] September, [facility] [place] [facility] [address] [id number] [place] [address] Aug, [facility] [place] [facility] [address] [facility] [id number] [place] [address] Aug, [facility] [place] [facility] [address] [id number] [place] [address] Aug, [facility] [place] [facility] [address] [id number] [place] [address] Aug, [facility] [place] [facility] [address] [id number] [place] [address] Aug, [facility] [place] [facility] [address] [id number] [place] [address] Aug, [facility] [place] [facility] [address] [id number] [place] [address] Aug, [facility] [place] [facility] [address] [id number] [place] [address] Aug, [facility] [place] [facility] [address] [id number] [place] [address] Aug, [facility] [place] [facility] [address] [facility] [id number] [place] [address] Aug, [facility] [place] [facility] [address] [id number] [place] [address] Aug, [facility] [place] [facility] [address] [id number] [place] [address] Aug, [facility] [place] [facility] [address] [id number] [place] [address] Jul, [facility] [place] [facility] [address] [id number] [place] [address] Jul, [facility] [place] [facility] [address] [facility] [id number] [place] [address] Jul, [facility] [place] [facility] [address] [id number] [place] [address] Jul, [facility] [place] [facility] [address] [id number] [place] [address] Jul, [facility] [place] [facility] [address] [id number] [place] [address] Jul, [facility] [place] [facility] [address] [id number] [place] [address] Jul, [facility] [place] [facility] [address] [id number] [place] [address] Jul, [facility] [place] [facility] [address] [id number] [place] [address] Jul, [facility] [place] [facility] [address] [id number] [place] [address] Jul, [facility] [place] [facility] [address] [id number] [place] [address] Jun, [facility] [place] [facility] [address] [id number] [place] [address] Jun, [facility] [place] [facility] [address] [id number] [place] [address] Jun, [facility] [address] [id number] [place] [address] Jun, [facility] [address] [id number] [place] [address] Jun, [facility] [address] [id number] [place] [address] Jun, [facility] [address] [id number] [place] [address] Jun, [facility] [address] [id number] [place] [address] Jun, [facility] [address] [facility] [id number] [place] [address] Jun, [facility] [address] [facility] [id number] [facility] [place] [address] Jun, [facility] [address] [facility] [id number] [place] [address] Jun, [facility] [address] [facility] [id number] [place] [address] Jun, [facility] [address] [facility] [id number] [place] [address] May, [facility] [address] [id number] [place] [address] May, [facility] [address] [id number] [place] [address] May, [facility] [address] [id number] [place] [address] May, [facility] [address] [id number] [place] [address] May, [facility] [address] [id number] [place] [address] May, [facility] [address] [id number] [place] [address] May, [facility] [address] [id number] [place] [address] May, [facility] [address] [id number] [place] [address] May, [facility] [address] [id number] [place] [address] May, [facility] [address] [id number] [place] [address] May, [facility] [address] [id number] [place] [address] May, [facility] [address] [id number] [place] [address] May, [facility] [address] [id number] [place] [address] May, [facility] [address] [id number] [place] [address] May, [facility] [address] [id number] [place] [address] Apr, [facility] [address] [id number] [place] [address] Apr, [facility] [address] [id number] [place] [address] Apr, [facility] [address] [id number] [place] [address] Apr, [facility] [address] [id number] [place] [address] Mar, [facility] [address] [id number] [place] [address] Mar, [facility] [address] [id number] [place] [address] Mar, [facility] [address] [id number] [place] [address] Mar, [facility] [address] [id number] [place] [address] Mar, [facility] [address] [id number] [place] [address] Mar, [facility] [address] [id number] [place] [address] Mar, [facility] [id number] [place] [address] Mar, [facility] [address] [id number] [place] [address] Mar, [facility] [address] [id number] [place] [address] Mar, [facility] [address] [id number] [place] [address] Mar, 2012 [facility] [address] [id number] [place] [address] Mar, [facility] [address] [id number] [place] [address] Feb, [facility] [address] [id number] [place] [address] 18 Jan, 2013 [facility] [address] [facility] [id number] [place] [address] 17 Jan, 2012 [facility] [address] [id number] [place] [address] Jan, [facility] [address] [id number] [place] [address] Jan, [facility] [address] [id number] [place] [address] Jan, [facility] [address] [id number] [place] [address] Dec, [facility] [address] [id number] [place] [address] Dec, [facility] [address] [id number] [place] [address] Dec, [facility] [address] [id number] [place] [address] 16 Dec, 2012 [facility] [address] [id number] [place] [address] Dec, [facility] [address] [id number] [place] [address] Dec, [facility] [address] [id number] [place] [address] Dec, [facility] [address] [id number] [place] [address] Dec, [facility] [address] [id number] [place] [address] Nov, [facility] [address] [id number] [place] [address] Nov, [facility] [address] [id number] [place] [address] Nov, [facility] [address] [id number] [place] [address] Nov, [facility] [address] [id number] [place] [address] Nov, [facility] [address] [id number] [place] [address] Nov, [facility] [address] [id number] [place] [address] Oct, [facility] [address] [facility] [id number] Oct, [facility] [address] [facility] [id number] Oct, [facility] [address] [facility] [id number] Oct, [facility] [address] [facility] [id number] Oct, [facility] [address] [id number] [place] [address] Oct, [facility] [address] [id number] [place] [address] Oct, [facility] [address] [id number] [place] [address] Oct, [facility] [address] [id number] [place] [address] Oct, [facility] [address] [id number] [place] [address] Oct, [facility] [address] [id number] [place] [address] Oct, [facility] [address] [id number] [place] [address] September, [facility] [address] [facility] [id number] [place] [address] Aug, [facility] [address] [id number] [place] [address] Aug, [facility] [address] [id number] [place] [address] Aug, [facility] [address] [id number] [place] [address] Aug, [facility] [address] [facility] [id number] [place] [address] Jul, [facility] [address] [id number] [place] [address] Jul, [facility] [address] [id number] [place] [address] Jul, [facility] [address] [id number] [place] [address] Jul, [facility] [address] [id number] [place] [address] Jul, [facility] [address] [id number] [place] [address] Jun, [facility] [address] [id number] [place] [address] Jun, [facility] [address] [id number] [place] [address] Jun, [facility] [address] [id number] [place] [address] May, [facility] [address] [id number] [place] [address] May, [facility] [address] [id number] [place] [address] May, [facility] [address] [id number] [place] [address] May, [facility] [address] [id number] [place] [address] May, [facility] [address] [id number] [place] [address] May, [facility] [address] [id number] [place] [address] Apr, [facility] [address] [id number] [place] [address] 18 Apr, 2012 [facility] [address] [id number] [place] [address] Apr, [facility] [address] [id number] [place] [address] Apr, [facility] [address] [id number] [place] [address] Apr, [facility] [address] [id number] [place] [address] Apr, [facility] [address] [id number] [place] [address] Apr, [facility] [address] [id number] [place] [address] Mar, [facility] [address] [id number] [place] [address] Mar, [facility] [address] [id number] [place] [address] Mar, [facility] [address] [id number] [place] [address] Mar, [facility] [address] [id number] [place] [address] 18 Jan, 2012 [facility] [id number] [place] [address] 10 Jan, 2012 [facility] [address] [id number] [place] [address] Jan, [facility] [address] [id number] [place] [address] 06 Jan, [address] [facility] [address] [id number] [place] [id number] Dec, [facility] [place] [id number] [place] [address] Dec, [facility] [address] [id number] [place] [id number] Dec, [facility] [place] [id number] [place] [address] Dec, [facility] [place] [address] [address] Dec, [facility] [place] [address] [address] Dec, [facility] [place] [address] [address] Nov, [facility] [place] [address] [address] Nov, [facility] [place] [id number] [place] [address] Nov, IMMUNIZATIONS No Known Immunizations SOCIAL HISTORY Never Assessed REASON FOR VISIT PLAN OF CARE VITAL SIGNS Height 62 in 2013-05-18 Weight 329.9 lbs 2013-05-18 Temperature 96.7 degrees Fahrenheit 2013-05-18 Heart Rate 86 bpm 2013-05-18 Respiratory Rate 22 2013-05-18 Blood pressure systolic 114 mmHg 2013-05-18 Blood pressure diastolic 60 mmHg 2013-05-18 MEDICATIONS Unknown Medications RESULTS No Results PROCEDURES Procedure Date Ordered Result Body Site MEASURE BLOOD OXYGEN LEVEL May 18, 2013 PROTHROMBIN TIME May 18, 2013 INSTRUCTIONS MEDICATIONS ADMINISTERED No Known Medications [...] asthma(493.90) Medical History Near syncope Medical History snf current use of anticoagulant Medical History Renal [...]
--- OUTSIDE RECORDS SUMMARY | 2019-11-03 19:22 | XMS REPORT ---
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 Name Role Phone DONI PALAFOX Unavailable PROBLEMS Type Condition ICD9-CM Code RFW32-GL Code Onset Dates Condition S tatus SNOMED Code Problem Esophageal reflux K21.9 Active 24 6060680 Problem Dyslipidemia E78.5 12 Oct, 2017 Active 3709 98708 Problem Unspecified hypothyroidism E03.9 Act hernesto 51400564 Problem Generalized anxiety disorder F41.1 23 Apr, 200 8 Active 37881019 Problem Shortness of breath R06.02 Apr, Active 239808312 Problem Pulmonary embolus I26.99 13 Oct, 2011 Active 15105829 Problem Nonintractable migraine G43.009 08 Oct, 2015 Act hernesto 874009543 Problem Pre-diabetes R73.03 Active 8271916 02 Problem Morbid obesity with BMI of 50.0-59.9, adult Z68.43 Active 131808323 Problem Hypothyroidism E03.9 Active 43337 008 Problem Morbid obesity E66.01 Active 24477 6002 Problem Unspecified sleep apnea G47.30 Active 55931480 Problem Personal history of pulmonary embolism Z86.711 Active 482607858 Problem Osteoarthritis of right knee M17.11 13 May, 201 0 Active 369154597 Problem Renal stones N20.0 Active 5279853 7 Problem Coronary artery disease I25.10 Active 73579313 Problem Hyperlipidemia LDL goal <70 E78.5 Ac tive 18618622 Problem Migraine with aura and without status migrainosu s, not intractable G43.109 Active 3425722 ALLERGIES No Information ENCOUNTERS Encounter Location Date Diagnosis [facility] [address] [facility] [id number] [address] [address] Jul, History of recurrent UTIs Z8 7.440 [facility] [address] [facility] [id number] [address] [place] [id number] 07 Jun, 2019 Personal history of pulmonar y embolism Z86.711 [facility] [address] [facility] [id number] [address] [place] [id number] 07 Jun, 2019 Personal history of pulmonar y embolism Z86.711 [facility] [address] 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 [address] [facility] [id number] [address] [place] [id number] 12 Apr, 2019 Non-recurrent acute suppurat hernesto otitis media of both ears without spontaneous rupture of tympanic membranes H66.003 [place] [address] [place] [id number] [address] [place] [id number] 08 Feb, 2019 Pre-diabetes R73.03 and Hype rlipidemia LDL goal <70 E78.5 [place] [address] [place] [id number] [address] [place] [phone] 07 Feb, 2019 [place] [address] [place] [id number] [address] [place] [id number] Feb, [place] [address] [place] [id number] [address] [place] [phone] Jan, [place] [address] [place] [id number] [address] [place] [address] Jan, [place] [address] [place] [id number] [address] [place] [id number] 18 Jan, 2019 Encounter for Medicare annua l wellness exam Z00.00 ; Hyperlipidemia LDL goal <70 E78.5 ; Coronary artery disease I25.10 ; Hypothyroidism E03.9 ; Osteoarthritis of right knee M17.11 ; Morbid obesity with BMI of 50.0-59.9, adult Z68.43 and Esophageal reflux K21.9 [facility] [address] [id number] [address] [place] [id number] Jan, Dysuria R30.0 and Hematuria, unspecified type R31.9 [facility] [address] [id number] [address] [place] [phone] Jan, Hematuria, unspecified type R31.9 [facility] [address] [facility] [id number] [address] [place] [address] Dec, Hematuria, unspecified type R31.9 [facility] [address] [id number] [address] [place] [phone] Nov, Hematuria, unspecified type R31.[address] [id number] [address] Nov, Other microscopic hematuria R31.29 [facility] [address] [id number] [address] [place] [phone] Nov, Vaginal gena B37.3 ; Othe r microscopic hematuria R31.29 and Morbid obesity E66.01 [facility] [address] [id number] [address] [place] [phone] Nov, [facility] [address] [facility] [id number] [address] [place] [phone] Nov, [facility] [address] [facility] [id number] [address] [place] [address] Nov, UTI symptoms R39.9 and Morbi d obesity E66.01 [facility] [address] [id number] [address] [place] [phone] Nov, [facility] [address] [facility] [id number] [address] [place] [id number] September, [facility] [address] [id number] [address] [place] [address] September, [facility] [address] [facility] [id number] [address] [place] [address] Aug, Right foot pain M79.671 and Morbid obesity E66.01 [facility] [address] [facility] [id number] [address] [place] [address] Jul, Right foot pain M79.671 and Morbid obesity E66.01 [facility] [address] [facility] [id number] [address] [place] [address] Jul, Injury of right foot, initia l encounter S99.921A and Morbid obesity E66.01 [place] [address] [facility] [id number] [address] [place] [address] Jul, Recurrent syncope R55 and Mo rbid obesity E66.01 [place] [address] [facility] [id number] [address] [place] [address] Jul, [place] [address] [place] [id number] [place] [phone] Jun, Hematuria, unspecified type R31.9 and BMI 50.0-59.9, adult Z68.43 [place] [address] [facility] [id number] [address] [place] [id number] 07 Jun, [id number] [place] [phone] 04 Jun, 2018 [employer] current use of ant icoagulant Z79.01 [facility] [address] [facility] [id number] [address] [place] [address] May, Ankle pain, right M25.571 an d BMI 50.0-59.9, adult Z68.43 [place] [address] [facility] [id number] [address] [place] [phone] May, [place] [address] [facility] [id number] [address] [place] [address] May, [place] [address] [facility] [id number] [address] [place] [phone] Apr, [place] [address] [facility] [id number] [address] [place] [phone] 30 Apr, 2018 [facility] [address] [place] [id number] [place] [address] Apr, [facility] [address] [facility] [id number] [address] [place] [id number] Apr, BMI 50.0-59.9, adult Z68.43 and Weakness R53.1 [facility] [address] [place] [id number] [place] [address] Apr, [facility] [address] [place] [id number] [place] [address] Apr, Dysuria R30.0 ; Hematuria R3 1.9 ; Renal lithiasis N20.0 and BMI 50.0-59.9, adult Z68.43 [facility] [address] [place] [id number] [place] [phone] Apr, [facility] [address] [place] [id number] [place] [address] Apr, [place] [address] [place] [id number] [place] [address] Apr, Hypothyroidism E03.9 [facility] [address] [place] [id number] [place] [address] 04 Apr, 2018 Burning with urination R30.0 ; Type 2 diabetes mellitus with diabetic neuropathic arthropathy, 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 ; Acute bilateral low back pain without sciatica M54.5 and BMI 50.0- 59.9, adult Z68.43 [facility] [address] [place] [id number] [place] [address] Mar, Hypothyroidism E03.9 [facility] [address] [place] [id number] [address] [place] [phone] Feb, [facility] [address] [place] [id number] [place] [phone] 15 Jan, 2018 [facility] [address] [place] [id number] [address] [place] [phone] 07 Jan, 2018 Acute non-recurrent maxillar y sinusitis J01.00 and BMI 50.0-59.9, adult Z68.43 [facility] [address] [place] [id number] [address] [place] [id number] 04 Jan, 2018 Congestion of upper respirat ory tract J98.8 and BMI 50.0-59.9, adult Z68.43 [place] [id number] [place] [id number] [address] [place] [phone] Dec, Type 2 diabetes mellitus wit h diabetic neuropathic arthropathy, 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 ; Morbid obesity with BMI of 50.0-59.9, adult Z68.43 ; Hypothyroidism E03.9 ; Coronary artery disease I25.10 ; Hyperlipidemia LDL goal <70 E78.5 ; Right lower quadrant abdominal pain R10.31 and Acute cystitis with hematuria N30.01 [facility] [address] [place] [id number] [address] [place] [address] Dec, Migraine with aura and witho ut status migrainosus, not intractable G43.109 ; Dehydration symptoms R63.8 and BMI 50.0-59.9, adult Z68.43 [place] [address] [place] [id number] [address] [place] [phone] Oct, [place] [address] [place] [id number] [address] [place] [phone] Oct, [place] [address] [place] [id number] [address] [place] [phone] Oct, [place] [address] [address] September, [place] [address] [place] [id number] [address] [place] [address] September, Type 2 diabetes mellitus wit h diabetic neuropathic arthropathy, 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 ; Hyperlipidemia, unspecified hyperlipidemia type E78.5 ; Personal history of pulmonary embolism Z86.711 ; Coronary artery disease I25.10 and Hypothyroidism E03.9 [facility] [address] [address] September, [place] [address] [address] Aug, Type 2 diabetes mellitus wit h [...] without aura and with status migrainosus G43.[address] [phone] Aug, [place] [address] [address] Aug, [place] [address] [address] Jul, Renal stones N20.0 [facility] [address] [address] Jun, Back pain M54.9 ; Kidney sto radha N20.0 and BMI 50.0-59.9, adult Z68.43 [place] [address] [address] Jun, [address] [address] Apr, [place] [address] [address] Apr, [address] [address] Apr, Right foot pain M79.671 ; Ac [place] gout involving toe of right foot, 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 and Arthritis M19.90 [place] [address] [address] 06 Apr, 2017 Gastroesophageal reflux dise ase without esophagitis K21.9 [place] [address] [address] 16 Mar, 2017 Hypothyroidism, unspecified E03.9 [place] [address] [address] Feb, [place] [address] [address] 25 Jan, 2017 Cervicalgia of occipito-atla nto-axial region M54.2 and Persistent headaches R51 [address] [address] Jan, [place] [address] [address] 12 Jan, 2017 Intractable migraine without aura and with status migrainosus G43.011 ; Cervical spine pain M54.2 ; Hyperlipidemia, unspecified hyperlipidemia type E78.5 ; Hypothyroidism E03.9 and Metabolic syndrome E88.81 [place] [address] [place] [id number] [address] [place] [address] Jan, Hypothyroidism, unspecified E03.9 [place] [address] [place] [id number] [address] [place] [address] Dec, Hypothyroidism, unspecified E03.9 [place] [address] [place] [id number] [address] [place] [address] Dec, Hypothyroidism E03.9 [place] [address] [place] [id number] [address] [place] [address] Nov, Laceration of left great toe w/o foreign body w/o damage to nail, initial encounter S91.112A [facility] [address] [place] [address] Oct, Pain in left knee M25.562 an d Arthritis M19.90 [place] [address] [address] Oct, Hypothyroidism, unspecified E03.9 and Hyperlipidemia, unspecified hyperlipidemia type E78.5 [place] [address] [address] Oct, Gastroesophageal reflux dise ase without esophagitis K21.9 [place] [address] [address] 14 Oct, 2016 Metabolic syndrome E88.81 ; Personal history of pulmonary embolism Z86.711 ; Other specified hypothyroidism E03.8 and Hyperlipidemia, unspecified hyperlipidemia type E78.5 [place] [address] [address] 13 Oct, 2016 Personal history of pulmonar y embolism Z86.711 ; Dysuria R30.0 ; Metabolic syndrome E88.81 ; Other specified hypothyroidism E03.8 ; Hyperlipidemia, unspecified hyperlipidemia type E78.5 and Morbid obesity with BMI of 50.0-59.9, adult Z68.43 [place] [address] [address] September, [facility] [address] [address] September, Wrist pain, left M25.532 and Acute pain of left knee M25.562 [place] [address] [address] Jul, Dysuria R30.0 [place] [address] [address] Jul, Dysuria R30.0 [place] [address] [address] Jul, Left lower quadrant pain R10 .32 [place] [address] [address] 14 Jul, [address] [address] 09 Jul, 2016 Coronary artery disease I25. [...] [facility] [address] [address] 09 Jul, 2016 [facility] IN [address] [address] 08 Jul, 2016 Morbid obesity with BMI of 5 0.0-59.9, adult Z68.43 [facility] IN [address] [address] 07 Jul, 2016 Generalized abdominal pain R 10.84 [facility] IN [address] [address] 02 Jun, 2016 Muscle strain of right upper back, initial encounter S29.012A [facility] IN [address] [address] May, Foreign body (FB) in soft ti ssue M79.[address] [address] Mar, Hypothyroidism, unspecified E03.9 and Arthritis M19.[address] [address] 13 Feb, 2016 Coronary artery disease I25. 10 ; Morbid obesity with BMI of 50.0- 59.9, adult Z68.43 ; Metabolic syndrome E88.81 ; Gastroesophageal reflux disease without esophagitis K21.9 ; Hypothyroidism, unspecified E03.9 ; Personal history of pulmonary embolism Z86.711 and Hyperlipidemia, unspecified hyperlipidemia type E78.5 [place] [address] [facility] [id number] [address] [place] [address] Feb, [facility] [address] [place] [id number] [address] [place] [address] Jan, Acute right-sided thoracic b ack pain M54.6 [place] [address] [facility] [id number] [address] [place] [address] Jan, Acute pain of left knee M25. 562 [place] [address] [place] [id number] [place] [address] Dec, Dysuria R30.0 ; Metabolic sy ndrome E88.81 ; Acute pain of left knee M25.562 ; Acute cystitis with hematuria N30.01 and Acute left eye pain H57.12 [place] [address] [place] [id number] [address] [place] [address] Dec, [place] [address] [facility] [id number] [address] [place] [address] Dec, [place] [address] [place] [id number] [address] [place] [address] Dec, Hypothyroidism, unspecified E03.9 [place] [address] [place] [address] Dec, [place] [address] [place] [id number] [address] [place] [address] Nov, Peripheral edema R60.9 and A cute pain of left knee M25.562 [facility] [place] [address] [facility] [id number] [address] [place] [address] September, [place] [address] [place] [id number] [address] [place] [address] September, Metabolic syndrome E88.81 an d Allergy, subsequent encounter T78.40XD [facility] [address] [place] [address] September, Muscle strain T14.8 [place] [address] [address] Aug, Chest pressure R07.89 ; [place] bolic syndrome E88.81 ; Morbid obesity with BMI of 50.0-59.9, adult Z68.43 ; Esophageal reflux 530.81 and Shortness of breath R06.02 [place] [address] [address] Aug, [place] [address] [address] Aug, [place] [address] [address] Aug, Hypothyroidism, unspecified E03.9 [place] [address] [address] Aug, Routine health maintenance Z 00.00 [facility] [place] [address] [address] Aug, [place] [address] [address] Jul, Routine health maintenance Z 00.00 ; Family history of diabetes mellitus Z83.3 ; Family history of cancer Z80.9 and Morbid obesity with BMI of 50.0-59.9, adult Z68.43 [facility] [place] [address] [place] [id number] [address] [place] [address] Jul, Allergic rhinitis J30.9 and Postnasal drip R09.82 [place] [address] [address] 18 Jul, 2015 Influenza J11.1 [facility] [place] [address] [address] 08 Jul, 2015 Dysuria R30.0 [place] [address] [id number] [address] [place] [address] Apr, [facility] [address] [id number] [address] [place] [address] Mar, Acute upper respiratory infe ction, unspecified J06.9 and Hypothyroidism E03.9 [facility] [address] [id number] [address] [place] [address] Mar, [facility] [address] [id number] [address] [place] [address] Feb, Coronary artery disease I25. 10 [facility] [address] [id number] [address] [place] [address] Feb, Left foot pain M79.672 [facility] [address] [id number] [address] [place] [address] Jan, UTI (urinary tract infection ) 599.0 [facility] [address] [id number] [address] [place] [address] Jan, Urinary tract infection, sit e not specified 599.0 [facility] [address] [id number] [address] [place] [address] Jan, Urinary tract infection, sit e not specified 599.0 [facility] [address] [id number] [address] [place] [address] Jan, [facility] [address] [id number] [address] [place] [address] Dec, Headache 784.0 [facility] [address] [id number] [address] [place] [address] Dec, Urinary tract infection, sit e not specified 599.0 [facility] [address] [id number] [address] [place] [address] Dec, Urinary tract infection, sit e not specified 599.0 [facility] [address] [id number] [address] [place] [address] Dec, Urinary tract infection, sit e not specified 599.0 [facility] [address] [id number] [address] [place] [address] Nov, Unspecified sleep apnea 780. 57 ; Encounter for long-term (current) use of anticoagulants V58.61 ; Routine general medical examination at health care facility V70.0 and Arthritis of both knees 716.96 [facility] [address] [id number] [address] [place] [address] September, Cat bite of hand 882.0 and R ectal bleeding 569.3 [facility] [address] [id number] [address] [place] [address] Aug, [facility] [address] [id number] [address] [place] [address] Aug, [facility] [address] [id number] [address] [place] [address] Jul, [facility] [address] [id number] [address] [place] [phone] Jul, [facility] [address] [id number] [address] [place] [address] Jul, [facility] [address] [id number] [address] [place] [address] Jul, [facility] [address] [id number] [address] [place] [address] Jul, [facility] [address] [id number] [address] [place] [address] Jul, [facility] [address] [id number] [address] [place] [id number] Jul, [facility] [address] [id number] [address] [place] [id number] Jul, [facility] [address] [id number] [address] [place] [id number] May, [facility] [address] [id number] [address] [place] [address], [place] [address] May, [facility] [address] [id number] [address] [place] [address], [place] [address] May, [facility] [address] [id number] [address] [place] [address], [place] [address] May, [facility] [address] [id number] [address] [place] [address], [place] [address] May, [facility] [address] [id number] [address] [place] [address], [place] [address] May, [facility] [address] [id number] [address] [place] [address], [place] [address] May, [facility] [address] [id number] [address] [place] [address], [place] [address] Mar, [facility] [address] [id number] [address] [place] [address], [place] [address] Mar, [facility] [address] [id number] [address] [place] [address], [place] [id number] 08 Jan, 2013 [facility] [address] [id number] [address] [place] [address], [place] [address] 08 Jan, 2013 [facility] [address] [id number] [address] [place] [address], [place] [id number] 08 Jan, 2013 [facility] [address] [id number] [address] [place] [address], [place] [address] 08 Jan, 2013 [facility] [address] [id number] [address] [place] [address], [place] [address] 05 Sep, 2013 [facility] [address] [address] [id number] [address] [place] [address], [place] [address] 05 Jan, 2013 [facility] [address] [id number] [address] [place] [address], [place] [address] 18 Dec, 2013 [facility] [address] [id number] [address] [place] [address], [place] [address] Dec, [facility] [address] [id number] [address] [place] [address], [place] [address] Dec, [facility] [address] [id number] [address] [place] [address], [place] [address] Dec, [facility] [address] [id number] [address] [place] [address], [place] [address] Dec, [facility] [address] [id number] [address] [place] [address], [place] [address] Dec, [facility] [address] [id number] [address] [place] [address], [place] [address] Dec, [facility] [address] [id number] [address] [place] [address], [place] [address] Dec, [facility] [address] [id number] [address] [place] [address], [place] [address] Dec, [facility] [address] [id number] [address] [place] [address], [place] [address] Dec, [facility] [address] [id number] [address] [place] [address], [place] [address] Nov, [facility] [address] [id number] [address] [place] [address], [place] [address] Nov, [facility] [address] [id number] [address] [place] [address], [place] [address] September, [facility] [address] [id number] [address] [place] [address], [place] [address] September, [facility] [address] [id number] [address] [place] [address], [place] [address] September, [facility] [address] [id number] [address] [place] [address], [place] [address] September, [facility] [address] [id number] [address] [place] [address], [place] [address] Aug, [facility] [address] [id number] [facility] [place] [address] Aug, [facility] [address] [id number] [address] [place] [address], [place] [address] Aug, [facility] [address] [id number] [address] [place] [address], [place] [address] Aug, [facility] [address] [id number] [address] [place] [address], [place] [address] Aug, [facility] [address] [id number] [address] [place] [address], [place] [address] Aug, [facility] [address] [id number] [address] [place] [address], [place] [address] Aug, [facility] [address] [id number] [address] [place] [address], [place] [address] Aug, [facility] [address] [id number] [address] [place] [address], [place] [address] Aug, [facility] [address] [id number] [address] [place] [address], [place] [address] Aug, [facility] [address] [id number] [address] [place] [address], [place] [address] Aug, [facility] [address] [id number] [address] [place] [address], [place] [address] Aug, [facility] [address] [id number] [address] [place] [address], [place] [address] Jul, [facility] [address] [id number] [address] [place] [address], [place] [address] Jul, [facility] [address] [id number] [address] [place] [address], [place] [address] Jul, [facility] [address] [id number] [address] [place] [address], [place] [address] Jul, [facility] [address] [id number] [address] [place] [address], [place] [address] Jul, [facility] [address] [id number] [facility] [address] Jul, [facility] [address] [id number] [address] [place] [address], [place] [address] Jul, [facility] [address] [id number] [facility] [address] Jul, [facility] [address] [id number] [address] [place] [address], [place] [address] Jul, [facility] [address] [id number] [address] [place] [address], [place] [address] Jul, [facility] [address] [id number] [address] [place] [address], [place] [address] Jun, [facility] [address] [id number] [address] [place] [address], [place] [address] Jun, [facility] [address] [id number] [address] [place] [address], [place] [address] Jun, [facility] [address] [id number] [address] [place] [address], [place] [address] 17 Jun, 2013 [facility] [address] [id number] [address] [place] [address], [place] [address] Jun, [facility] [address] [id number] [address] [place] [address], [place] [address] Jun, [facility] [address] [id number] [address] [place] [address], [place] [address] Jun, [facility] [address] [id number] [address] [place] [address], [place] [address] Jun, [facility] [address] [id number] [address] [place] [address], [place] [address] Jun, [facility] [address] [id number] [address] [place] [address], [place] [address] Jun, [facility] [address] [id number] [address] [place] [address], [place] [address] 04 Jun, 2013 [facility] [address] [id number] [address] [place] [address], [place] [address] Jun, [facility] [address] [id number] [address] [place] [address], [place] [address] May, [facility] [address] [id number] [address] [place] [address], [place] [address] May, [facility] [address] [id number] [address] [place] [address], [place] [address] May, [facility] [address] [id number] [address] [place] [address], [place] [address] May, [facility] [address] [id number] [address] [place] [address], [place] [address] May, [facility] [address] [id number] [address] [place] [address], [place] [address] May, [facility] [address] [id number] [address] [place] [address], [place] [address] May, [facility] [address] [id number] [address] [place] [address], [place] [address] May, [facility] [address] [id number] [address] [place] [address], [place] [address] May, [facility] [address] [id number] [address] [place] [address], [place] [address] May, [facility] [address] [id number] [address] [place] [address], [place] [address] May, [facility] [address] [id number] [address] [place] [address], [place] [address] May, [facility] [address] [id number] [address] [place] [address], [place] [address] May, [facility] [address] [id number] [address] [place] [address], [place] [address] May, [facility] [address] [id number] [address] [place] [address], [place] [address] May, [facility] [address] [id number] [address] [place] [address], [place] [address] Apr, [facility] [address] [id number] [address] [place] [address], [place] [address] Apr, [facility] [address] [id number] [address] [place] [address], [place] [address] Apr, [facility] [address] [id number] [address] [place] [address], [place] [address] Apr, [facility] [address] [id number] [address] [place] [address], [place] [address] Mar, [facility] [address] [id number] [address] [place] [address], [place] [address] Mar, [facility] [address] [id number] [address] [place] [address], [place] [address] Mar, [facility] [address] [id number] [address] [place] [address], [place] [address] Mar, [facility] [address] [id number] [address] [place] [address], [place] [address] Mar, [facility] [address] [id number] [address] [place] [address] Mar, [facility] [address] [id number] [address] [place] [address] Mar, [facility] [address] [id number] [address] [place] [address], [place] [address] Mar, [facility] [address] [id number] [address] [place] [address], [place] [address] Mar, [facility] [address] [id number] [address] [place] [address], [place] [address] Mar, [facility] [address] [id number] [address] [place] [address], [place] [address] 05 Mar, 2013 [facility] [address] [id number] [address] [place] [address], [place] [address] 05 Mar, 2013 [facility] [address] [id number] [address] [place] [address], [place] [address] 03 Feb, 2013 [facility] [address] [id number] [address] [place] [address], [place] [address] 18 Jan, 2012 [facility] [address] [id number] [address] [place] [address], [place] [address] 17 Jan, 2012 [facility] [address] [id number] [address] [place] [address], [place] [address] 06 Jan, 2013 [facility] [address] [id number] [address] [place] [address], [place] [address] 04 Jan, 2013 [facility] [address] [id number] [address] [place] [address], [place] [address] 03 Jan, 2013 [facility] [address] [id number] [address] [place] [address], [place] [address] Dec, [facility] [address] [id number] [address] [place] [address], [place] [address] Dec, [facility] [address] [id number] [address] [place] [address], [place] [address] Dec, [facility] [address] [id number] [address] [place] [address], [place] [address] 16 Dec, 2012 [facility] [address] [id number] [address] [place] [address], [place] [address] Dec, [facility] [address] [id number] [address] [place] [address], [place] [address] Dec, [facility] [address] [id number] [address] [place] [address], [place] [address] Dec, [facility] [address] [id number] [address] [place] [address], [place] [address] Dec, [facility] [address] [id number] [address] [place] [address], [place] [address] Nov, [facility] [address] [id number] [address] [place] [address], [place] [address] Nov, [facility] [address] [id number] [address] [place] [address], [place] [address] Nov, [facility] [address] [id number] [address] [place] [address], [place] [address] Nov, [facility] [address] [id number] [address] [place] [address], [place] [address] Nov, [facility] [address] [id number] [address] [place] [address], [place] [address] Nov, [facility] [address] [id number] [address] [place] [address], [place] [address] Oct, [facility] [place] [address] [id number] [place] [id number] Oct, [facility] [place] [address] [id number] [place] [id number] Oct, [facility] [place] [address] [id number] [place] [id number] Oct, [facility] [place] [address] [id number] [place] [id number] Oct, [facility] [address] [id number] [address] [place] [address], [place] [address] Oct, [facility] [address] [id number] [address] [place] [address], [place] [address] Oct, [facility] [address] [id number] [address] [place] [address], [place] [address] Oct, [facility] [address] [id number] [address] [place] [address], [place] [address] Oct, [facility] [address] [id number] [address] [place] [address], [place] [address] Oct, [facility] [address] [id number] [address] [place] [address], [place] [address] Oct, [facility] [address] [id number] [address] [place] [address], [place] [address] September, [facility] [address] [id number] [address] [place] [address], [place] [address] Aug, [facility] [address] [id number] [address] [place] [address], [place] [address] Aug, [facility] [address] [id number] [address] [place] [address], [place] [address] Aug, [facility] [address] [id number] [address] [place] [address], [place] [address] Aug, [facility] [address] [id number] [address] [place] [address], [place] [address] Jul, [facility] [address] [id number] [address] [place] [address], [place] [address] Jul, [facility] [address] [id number] [address] [place] [address], [place] [address] Jul, [facility] [address] [id number] [address] [place] [address], [place] [address] Jul, [facility] [address] [id number] [address] [place] [address], [place] [address] Jul, [facility] [address] [id number] [address] [place] [address], [place] [address] Jun, [facility] [address] [id number] [address] [place] [address], [place] [address] Jun, [facility] [address] [id number] [address] [place] [address], [place] [address] Jun, [facility] [address] [id number] [address] [place] [address], [place] [address] May, [facility] [address] [id number] [address] [place] [address], [place] [address] 24 May, 2012 [facility] [address] [id number] [address] [place] [address], [place] [address] 14 May, 2012 [facility] [address] [id number] [address] [place] [address], [place] [address] May, [facility] [address] [id number] [address] [place] [address], [place] [address] May, [facility] [address] [id number] [address] [place] [address], [place] [address] May, [facility] [address] [id number] [address] [place] [address], [place] [address] 18 Apr, 2012 [facility] [address] [id number] [address] [place] [address], [place] [address] 18 Apr, 2012 [facility] [address] [id number] [address] [place] [address], [place] [address] Apr, [facility] [address] [id number] [address] [place] [address], [place] [address] Apr, [facility] [address] [id number] [address] [place] [address], [place] [address] Apr, [facility] [address] [id number] [address] [place] [address], [place] [address] Apr, [facility] [address] [id number] [address] [place] [address], [place] [address] Apr, [facility] [address] [id number] [address] [place] [address], [place] [address] Mar, [facility] [address] [id number] [address] [place] [address], [place] [address] Mar, [facility] [address] [id number] [address] [place] [address], [place] [address] Mar, [facility] [address] [id number] [address] [place] [address], [place] [address] Mar, [facility] [address] [id number] [address] [place] [address] Jan, [facility] [address] [id number] [address] [place] [address] Jan, [facility] [address] [id number] [address] [place] [address] Jan, [facility] [address] [facility] [id number] [address] [place] [address] Jan, [facility] [address] [id number] [place] [id number] Dec, [facility] [address] [id number] [address] [place] [address] Dec, [facility] [address] [facility] [id number] [place] [id number] Dec, [facility] [address] [facility] [id number] [address] [place] [address] Dec, [facility] [address] [facility] [id number] [address] [place] [address] Dec, [facility] [address] [facility] [id number] [address] [place] [address] Dec, [facility] [address] [facility] [id number] [address] [place] [address] Nov, [facility] [address] [facility] [id number] [address] [place] [address] Nov, [facility] [address] 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
--- OUTSIDE RECORDS SUMMARY | 2019-11-03 19:22 | XMS REPORT ---
Author Author Anca Lucero Doctor Organization [facility] Address Unknown Phone Unavailable Care Team Providers Care Fisheries Officer Name Role Phone Migration, Doctor Unavailable Unavailable PROBLEMS Type Condition ICD9-CM Code [id number] Code Onset Dates Condition S tatus SNOMED Code Problem Esophageal reflux K21.9 Active 24 9403992 Problem Dyslipidemia E78.5 12 Oct, 2017 Active 3709 15214 Problem Unspecified hypothyroidism E03.9 Act hernesto 38019169 Problem Generalized anxiety disorder F41.1 Apr, 200 8 Active 27904047 Problem Shortness of breath R06.02 Apr, Active 688008443 Problem Pulmonary embolus I26.99 13 Oct, 2011 Active 12838842 Problem Nonintractable migraine G43.009 08 Oct, 2015 Act hernesto 002158750 Problem Pre-diabetes R73.03 Active 2246342 02 Problem Morbid obesity with BMI of 50.0-59.9, adult Z68.43 Active 751185632 Problem Hypothyroidism E03.9 Active 57449 008 Problem Morbid obesity E66.01 Active 52353 6002 Problem Unspecified sleep apnea G47.30 Active 50336751 Problem Personal history of pulmonary embolism Z86.711 Active 491543615 Problem Osteoarthritis of right knee M17.11 13 May, 201 0 Active 215769215 Problem Renal stones N20.0 Active 9824886 7 Problem Coronary artery disease I25.10 Active 07565257 Problem Hyperlipidemia LDL goal <70 E78.5 Ac tive 81156241 Problem Migraine with aura and without status migrainosu s, not intractable G43.109 Active 1650623 ALLERGIES No Information ENCOUNTERS Encounter Location Date Diagnosis [facility] [address] [facility] [id number] [address] [place] [id number] 31 Jul, 2019 History of recurrent UTIs Z8 7.440 [facility] [address] [facility] [id number] [address] [place] [id number] 07 Jun, 2019 Personal history of pulmonar y embolism Z86.711 [facility] [address] [facility] [id number] [address] [place] [id number] 07 Jun, 2019 Personal history of pulmonar y embolism Z86.711 [facility] [address] [facility] [id number] [address] [place] [id number] 21 May, 2019 [facility] [address] [id number] [address] 17 May, 2019 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 and Dizziness R42 [facility] [address] [facility] [id number] [address] [place] [address] 12 Apr, 2019 Non-recurrent acute suppurat hernesto otitis media of both ears without spontaneous rupture of tympanic membranes H66.003 [place] [address] [facility] [id number] [address] [place] [id number] 08 Feb, 2019 Pre-diabetes R73.03 and Hype rlipidemia LDL goal <70 E78.5 [place] [address] [facility] [id number] [address] [place] [phone] 07 Feb, 2019 [place] [address] [place] [id number] [address] [place] [phone] 03 Feb, 2019 [place] [address] [facility] [id number] [address] [place] [phone] 30 Jan, 2019 [place] [address] [facility] [id number] [address] [place] [id number] 24 Jan, 2019 [place] [address] [facility] [id number] [address] [place] [id number] 18 Jan, 2019 Encounter for Medicare annua l wellness exam Z00.00 ; Hyperlipidemia LDL goal <70 E78.5 ; Coronary artery disease I25.10 ; Hypothyroidism E03.9 ; Osteoarthritis of right knee M17.11 ; Morbid obesity with BMI of 50.0-59.9, adult Z68.43 and Esophageal reflux K21.9 [place] [address] [facility] [id number] [address] [place] [phone] Jan, Dysuria R30.0 and Hematuria, unspecified type R31.9 [facility] [address] [facility] [id number] [address] [place] [address] Jan, Hematuria, unspecified type R31.9 [facility] [address] [facility] [id number] [address] [place] [phone] Dec, Hematuria, unspecified type R31.9 [facility] [address] [facility] [id number] [address] [place] [phone] Nov, Hematuria, unspecified type R31.[address] [id number] [address] Nov, Other microscopic hematuria R31.29 [facility] [address] [facility] [id number] [address] [place] [phone] Nov, Vaginal gena B37.3 ; Othe r microscopic hematuria R31.29 and Morbid obesity E66.01 [facility] [address] [facility] [id number] [address] [place] [phone] Nov, [facility] [address] [facility] [id number] [address] [place] [phone] Nov, [facility] [address] [facility] [id number] [address] [place] [phone] Nov, UTI symptoms R39.9 and Morbi d obesity E66.01 [facility] [address] [facility] [id number] [address] [place] [phone] Nov, [facility] [address] [facility] [id number] [address] [place] [phone] September, [facility] [address] [facility] [id number] [address] [place] [address] September, [facility] [address] [facility] [id number] [address] [place] [address] Aug, Right foot pain M79.671 and Morbid obesity E66.01 [facility] [address] [facility] [id number] [address] [place] [address] Jul, Right foot pain M79.671 and Morbid obesity E66.01 [facility] [address] [place] [id number] [address] [place] [address] Jul, Injury of right foot, initia l encounter S99.921A and Morbid obesity E66.01 [facility] [address] [address] 05 Jul, 2018 Recurrent syncope R55 and Mo rbid obesity E66.01 [place] [address] [place] [id number] [place] [address] 04 Jul, 2018 [place] [address] [address] Jun, Hematuria, unspecified type R31.9 and BMI 50.0-59.9, adult Z68.43 [place] [address] [place] [id number] [address] [place] [address] 07 Jun, [id number] [place] [phone] 04 Jun, 2018 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 [facility] [address] [place] [id number] [address] [place] [address] May, Ankle pain, right M25.571 an d BMI 50.0-59.9, adult Z68.43 [facility] [address] [facility] [id number] [address] [place] [phone] May, [place] [address] [place] [id number] [place] [address] May, [facility] [address] [place] [id number] [address] [place] [phone] Apr, [place] [address] [place] [id number] [place] [address] Apr, [place] [address] [place] [id number] [address] [place] [phone] Apr, [facility] [address] [place] [id number] [place] [address] Apr, BMI 50.0-59.9, adult Z68.43 and Weakness R53.1 [facility] [address] [place] [id number] [place] [address] Apr, [facility] [address] [place] [id number] [place] [address] Apr, Dysuria R30.0 ; Hematuria R3 1.9 ; Renal lithiasis N20.0 and BMI 50.0-59.9, adult Z68.43 [place] [address] [place] [id number] [place] [address] Apr, [place] [address] [address] Apr, [place] [address] [address] Apr, Hypothyroidism E03.9 [place] [address] [address] Apr, Burning with urination R30.0 ; Type 2 diabetes mellitus with diabetic neuropathic arthropathy, 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 ; Acute bilateral low back pain without sciatica M54.5 and BMI 50.0- 59.9, adult Z68.43 [place] [address] [place] [id number] [address] [place] [address] Mar, Hypothyroidism E03.9 [place] [address] [place] [id number] [place] [address] Feb, [facility] [address] [place] [id number] [address] [place] [phone] Jan, [place] [address] [address] 07 Jan, 2018 Acute non-recurrent maxillar y sinusitis J01.00 and BMI 50.0-59.9, adult Z68.43 [facility] [place] [address] [address] 04 Jan, 2018 Congestion of upper respirat ory tract J98.8 and BMI 50.0-59.9, adult Z68.43 [place] [address] [address] Dec, Type 2 diabetes mellitus wit h diabetic neuropathic arthropathy, 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 ; Morbid obesity with BMI of 50.0-59.9, adult Z68.43 ; Hypothyroidism E03.9 ; Coronary artery disease I25.10 ; Hyperlipidemia LDL goal <70 E78.5 ; Right lower quadrant abdominal pain R10.31 and Acute cystitis with hematuria N30.01 [facility] [place] [address] [address] Dec, Migraine with aura and witho ut status migrainosus, not intractable G43.109 ; Dehydration symptoms R63.8 and BMI 50.0-59.9, adult Z68.43 [place] [address] [address] Oct, [place] [address] [address] Oct, [place] [address] [address] Oct, [place] [address] [address] September, [address] [address] September, Type 2 diabetes mellitus wit h diabetic neuropathic arthropathy, 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 ; Hyperlipidemia, unspecified hyperlipidemia type E78.5 ; Personal history of pulmonary embolism Z86.711 ; Coronary artery disease I25.10 and Hypothyroidism E03.9 [facility] [address] [address] September, [place] [address] [address] Aug, Type 2 diabetes mellitus wit h [...] without aura and with status migrainosus G43.[address] [address] Aug, [place] [address] [address] Aug, [place] [address] [address] Jul, Renal stones N20.0 [facility] [address] [address] Jun, Back pain M54.9 ; Kidney sto radha N20.0 and BMI 50.0-59.9, adult Z68.43 [place] [address] [address] Jun, [place] [address] [address] Apr, [address] [address] Apr, [place] [address] [address] Apr, Right foot pain M79.671 ; Ac yakutat gout involving toe of right foot, 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 and Arthritis M19.90 [place] [id number] [place] [id number] [address] [place] [address] 06 Apr, 2017 Gastroesophageal reflux dise ase without esophagitis K21.9 [place] [address] [place] [id number] [address] [place] [address] 16 Mar, 2017 Hypothyroidism, unspecified E03.9 [place] [address] [address] 11 Feb, 2017 [place] [address] [address] 25 Jan, 2017 Cervicalgia of occipito-atla nto-axial region M54.2 and Persistent headaches R51 [place] [address] [address] 20 Jan, 2017 [place] [address] [address] 12 Jan, 2017 Intractable migraine without aura and with status migrainosus G43.011 ; Cervical spine pain M54.2 ; Hyperlipidemia, unspecified hyperlipidemia type E78.5 ; Hypothyroidism E03.9 and Metabolic syndrome E88.81 [place] [address] [address] Jan, Hypothyroidism, unspecified E03.9 [place] [address] [address] Dec, Hypothyroidism, unspecified E03.9 [place] [address] [address] Dec, Hypothyroidism E03.9 [place] [address] [address] Nov, Laceration of left great toe w/o foreign body w/o damage to nail, initial encounter S91.112A [facility] [address] [place] [id number] [address] [place] [address] Oct, Pain in left knee M25.562 an d Arthritis M19.90 [facility] [address] [address] Oct, Hypothyroidism, unspecified E03.9 and Hyperlipidemia, unspecified hyperlipidemia type E78.5 [place] [id number] [place] [id number] [place] [address] 22 Oct, 2016 Gastroesophageal reflux dise ase without esophagitis K21.9 [facility] [address] [address] 14 Oct, 2016 Metabolic syndrome E88.81 ; Personal history of pulmonary embolism Z86.711 ; Other specified hypothyroidism E03.8 and Hyperlipidemia, unspecified hyperlipidemia type E78.5 [place] [address] [address] 13 Oct, 2016 Personal history of pulmonar y embolism Z86.711 ; Dysuria R30.0 ; Metabolic syndrome E88.81 ; Other specified hypothyroidism E03.8 ; Hyperlipidemia, unspecified hyperlipidemia type E78.5 and Morbid obesity with BMI of 50.0-59.9, adult Z68.43 [place] [address] [address] September, [facility] [address] [address] September, Wrist pain, left M25.532 and Acute pain of left knee M25.562 [place] [address] [address] Jul, Dysuria R30.0 [facility] [address] [address] Jul, Dysuria R30.0 [place] [address] [address] Jul, Left lower quadrant pain R10 .32 [facility] [address] [address] Jul, [address] [address] 09 Jul, 2016 Coronary artery disease I25. 10 ; Family history of diabetes mellitus Z83.3 ; Morbid obesity with BMI of 50.0-59.9, adult Z68.43 ; Metabolic syndrome E88.81 ; Personal history of pulmonary embolism Z86.711 ; Gastroesophageal reflux disease without esophagitis K21.9 ; Hypothyroidism, unspecified E03.9 ; Hyperlipidemia, unspecified hyperlipidemia type E78.5 and Left lower quadrant pain R10.32 [facility] [address] [address] 09 Jul, 2016 [facility] [address] [address] 08 Jul, 2016 Morbid obesity with BMI of 5 0.0-59.9, adult Z68.43 [facility] [address] [address] Jul, Generalized abdominal pain R 10.84 [facility] [address] [address] 02 Jun, 2016 Muscle strain of right upper back, initial encounter S29.012A [facility] [address] [address] May, Foreign body (FB) in soft ti ssue M79.[address] [address] Mar, Hypothyroidism, unspecified E03.9 and Arthritis M19.[address] [address] 13 Feb, 2016 Coronary artery disease I25. 10 ; Morbid obesity with BMI of 50.0- 59.9, adult Z68.43 ; Metabolic syndrome E88.81 ; Gastroesophageal reflux disease without esophagitis K21.9 ; Hypothyroidism, unspecified E03.9 ; Personal history of pulmonary embolism Z86.711 and Hyperlipidemia, unspecified hyperlipidemia type E78.5 [place] [address] [id number] [address] [place] [address] Feb, [facility] [address] [id number] [address] [place] [address] Jan, Acute right-sided thoracic b ack pain M54.6 [place] [address] [id number] [address] [place] [address] Jan, Acute pain of left knee M25. 562 [place] [address] [id number] [address] [place] [address] Dec, Dysuria R30.0 ; Metabolic sy ndrome E88.81 ; Acute pain of left knee M25.562 ; Acute cystitis with hematuria N30.01 and Acute left eye pain H57.12 [place] [address] [id number] [address] [place] [address] Dec, [place] [address] [id number] [address] [place] [address] Dec, [place] [address] [id number] [address] [place] [address] Dec, Hypothyroidism, unspecified E03.9 [place] [address] [id number] [address] [place] [address] Dec, [place] [address] [id number] [address] [place] [address] Nov, Peripheral edema R60.9 and A cute pain of left knee M25.562 [facility] [address] [id number] [address] [place] [address] September, [place] [address] [id number] [address] [place] [address] September, Metabolic syndrome E88.81 an d Allergy, subsequent encounter T78.40XD [facility] [address] [id number] [address] [place] [address] September, Muscle strain T14.8 [facility] [address] [place] [id number] [address] [place] [address] Aug, Chest pressure R07.89 ; Waverly bolic syndrome E88.81 ; Morbid obesity with BMI of 50.0-59.9, adult Z68.43 ; Esophageal reflux 530.81 and Shortness of breath R06.02 [place] [address] [address] Aug, [place] [address] [address] Aug, [place] [address] [address] Aug, Hypothyroidism, unspecified E03.9 [place] [address] [address] Aug, Routine health maintenance Z 00.00 [facility] [place] [address] [address] Aug, [place] [address] [address] Jul, Routine health maintenance Z 00.00 ; Family history of diabetes mellitus Z83.3 ; Family history of cancer Z80.9 and Morbid obesity with BMI of 50.0-59.9, adult Z68.43 [facility] [place] [address] [address] Jul, Allergic rhinitis J30.9 and Postnasal drip R09.82 [place] [address] [place] [id number] [address] [place] [address] Jul, Influenza J11.1 [facility] [address] [address] 08 Jul, 2015 Dysuria R30.0 [place] [address] [address] Apr, [place] [address] [id number] [address] [place] [address] Mar, Acute upper respiratory infe ction, unspecified J06.9 and Hypothyroidism E03.9 [facility] [address] [id number] [address] [place] [address] Mar, [facility] [address] [id number] [address] [place] [address] Feb, Coronary artery disease I25. 10 [facility] [address] [id number] [address] [place] [address] 16 Feb, 2015 Left foot pain M79.672 [facility] [address] [id number] [address] [place] [address] Jan, UTI (urinary tract infection ) 599.0 [place] [id number] [id number] [address] [place] [address] Jan, Urinary tract infection, sit e not specified 599.0 [facility] [address] [id number] [address] [place] [address] Jan, Urinary tract infection, sit e not specified 599.0 [facility] [address] [id number] [address] [place] [address] Jan, [facility] [address] [id number] [address] [place] [address] Dec, Headache 784.0 [facility] [address] [id number] [address] [place] [address] Dec, Urinary tract infection, sit e not specified 599.0 [facility] [address] [id number] [address] [place] [address] Dec, Urinary tract infection, sit e not specified 599.0 [facility] [address] [id number] [address] [place] [address] Dec, Urinary tract infection, sit e not specified 599.0 [facility] [address] [id number] [address] [place] [address] Nov, Unspecified sleep apnea 780. 57 ; Encounter for long-term (current) use of anticoagulants V58.61 ; Routine general medical examination at health care facility V70.0 and Arthritis of both knees 716.96 [facility] [address] [id number] [address] [place] [address] September, Cat bite of hand 882.0 and R ectal bleeding 569.3 [facility] [address] [id number] [address] [place] [address] Aug, [facility] [address] [id number] [address] [place] [address] Aug, [facility] [address] [id number] [address] [place] [address] Jul, [facility] [address] [id number] [address] [place] [address] Jul, [facility] [address] [id number] [address] [place] [phone] Jul, [facility] [address] [id number] [address] [place] [address] Jul, [facility] [address] [id number] [address] [place] [address] Jul, [facility] [address] [id number] [address] [place] [address] Jul, [facility] [address] [id number] [address] [place] [address] Jul, [facility] [address] [id number] [address] [place] [address] Jul, [facility] [address] [id number] [address] [place] [phone] May, [facility] [address] [id number] [address] [place] [address] May, [facility] [address] [id number] [address] [place] [address], [place] [address] May, [facility] [address] [id number] [address] [place] [address], [place] [address] May, [facility] [address] [id number] [address] [place] [address], [place] [address] May, [facility] [address] [id number] [address] [place] [address], [place] [address] May, [facility] [address] [id number] [address] [place] [address], [place] [address] May, [facility] [address] [id number] [address] [place] [address], [place] [address] Mar, [facility] [address] [id number] [address] [place] [address], [place] [address] Mar, [facility] [address] [id number] [address] [place] [address], [place] [address] 08 Jan, 2013 [facility] [address] [id number] [address] [place] [address], [place] [address] 08 Jan, 2013 [facility] [address] [id number] [address] [place] [address], [place] [address] 08 Jan, 2013 [facility] [address] [id number] [address] [place] [address], [place] [address] 08 Jan, 2013 [facility] [address] [id number] [address] [place] [address], [place] [address] 05 Jan, 2013 [facility] [address] [id number] [address] [place] [address], [place] [address] 05 Jan, 2013 [facility] [address] [id number] [address] [place] [address], [place] [address] Dec, [facility] [address] [id number] [address] [place] [address], [place] [address] Dec, [facility] [address] [id number] [address] [place] [address], [place] [address] Dec, [facility] [address] [id number] [facility] [place] [address] Dec, [facility] [address] [id number] [address] [place] [address], [place] [address] Dec, [facility] [address] [id number] [address] [place] [address], [place] [address] Dec, [facility] [address] [id number] [address] [place] [address], [place] [address] Dec, [facility] [address] [id number] [address] [place] [address], [place] [address] Dec, [facility] [address] [id number] [address] [place] [address], [place] [address] Dec, [facility] [address] [id number] [address] [place] [address], [place] [address] Dec, [facility] [address] [id number] [address] [place] [address], [place] [address] Nov, [facility] [address] [id number] [address] [place] [address], [place] [address] Nov, [facility] [address] [id number] [address] [place] [address], [place] [address] September, [facility] [address] [id number] [address] [place] [address], [place] [address] September, [facility] [address] [id number] [address] [place] [address], [place] [address] September, [facility] [address] [id number] [address] [place] [address], [place] [address] September, [facility] [address] [id number] [address] [place] [address], [place] [address] Aug, [facility] [address] [id number] [address] [place] [address], [place] [address] Aug, [facility] [address] [id number] [facility] [place] [address] Aug, [facility] [address] [id number] [facility] [place] [address] Aug, [facility] [address] [id number] [address] [place] [address], [place] [address] Aug, [facility] [address] [id number] [address] [place] [address], [place] [address] Aug, [facility] [address] [id number] [address] [place] [address], [place] [address] Aug, [facility] [address] [id number] [address] [place] [address], [place] [address] Aug, [facility] [address] [id number] [address] [place] [address], [place] [address] Aug, [facility] [address] [id number] [address] [place] [address], [place] [address] Aug, [facility] [address] [id number] [address] [place] [address], [place] [address] Aug, [facility] [address] [id number] [address] [place] [address], [place] [address] Aug, [facility] [address] [id number] [address] [place] [address], [place] [address] Jul, [facility] [address] [id number] [address] [place] [address], [place] [address] Jul, [facility] [address] [id number] [address] [place] [address], [place] [address] Jul, [facility] [address] [id number] [address] [place] [address], [place] [address] Jul, [facility] [address] [id number] [address] [place] [address], [place] [address] Jul, [facility] [address] [id number] [address] [place] [address], [place] [address] Jul, [facility] [address] [id number] [facility] [place] [address] Jul, [facility] [address] [id number] [address] [place] [address], [place] [address] Jul, [facility] [address] [id number] [address] [place] [address], [place] [address] Jul, [facility] [address] [id number] [address] [place] [address], [place] [address] Jul, [facility] [address] [id number] [address] [place] [address], [place] [address] Jun, [facility] [address] [id number] [address] [place] [address], [place] [address] Jun, [facility] [address] [id number] [address] [place] [address], [place] [address] Jun, [facility] [address] [id number] [address] [place] [address], [place] [address] Jun, [facility] [address] [id number] [address] [place] [address], [place] [address] Jun, [facility] [address] [id number] [address] [place] [address], [place] [address] Jun, [facility] [address] [id number] [address] [place] [address], [place] [address] Jun, [facility] [address] [id number] [address] [place] [address], [place] [address] Jun, [facility] [address] [id number] [address] [place] [address], [place] [address] Jun, [facility] [address] [id number] [address] [place] [address], [place] [address] Jun, [facility] [address] [id number] [address] [place] [address], [place] [address] Jun, [facility] [address] [id number] [address] [place] [address], [place] [address] Jun, [facility] [address] [id number] [address] [place] [address], [place] [address] May, [facility] [address] [id number] [address] [place] [address], [place] [address] May, [facility] [address] [id number] [address] [place] [address], [place] [address] May, [facility] [address] [id number] [address] [place] [address], [place] [address] May, [facility] [address] [id number] [address] [place] [address], [place] [address] May, [facility] [address] [id number] [address] [place] [address], [place] [address] May, [facility] [address] [id number] [address] [place] [address], [place] [address] May, [facility] [address] [id number] [address] [place] [address], [place] [address] May, [facility] [address] [id number] [address] [place] [address], [place] [address] May, [facility] [address] [id number] [address] [place] [address], [place] [address] May, [facility] [address] [id number] [address] [place] [address], [place] [address] May, [facility] [address] [id number] [address] [place] [address], [place] [address] May, [facility] [address] [id number] [address] [place] [address], [place] [address] May, [facility] [address] [id number] [address] [place] [address], [place] [address] May, [facility] [address] [id number] [address] [place] [address], [place] [address] May, [facility] [address] [id number] [address] [place] [address], [place] [address] Apr, [facility] [address] [id number] [address] [place] [address], [place] [address] Apr, [facility] [address] [id number] [address] [place] [address], [place] [address] Apr, [facility] [address] [id number] [address] [place] [address], [place] [address] Apr, [facility] [address] [id number] [address] [place] [address], [place] [address] Mar, [facility] [address] [id number] [address] [place] [address], [place] [address] Mar, [facility] [address] [id number] [address] [place] [address], [place] [address] Mar, [facility] [address] [id number] [address] [place] [address] Mar, [facility] [address] [id number] [address] [place] [address] Mar, [facility] [address] [id number] [address] [place] [address] Mar, [facility] [address] [id number] [address] [place] [address] Mar, [facility] [address] [id number] [address] [place] [address] Mar, [facility] [address] [id number] [address] [place] [address], [place] [address] Mar, [facility] [address] [id number] [address] [place] [address] Mar, [facility] [address] [id number] [address] [place] [address] Mar, [facility] [address] [id number] [address] [place] [address], [place] [address] 05 Mar, 2013 [facility] [address] [id number] [address] [place] [address], [place] [address] 03 Feb, 2013 [facility] [address] [id number] [address] [place] [address], [place] [address] 18 Jan, 2012 [facility] [address] [id number] [address] [place] [address], [place] [address] 17 Jan, 2012 [facility] [address] [id number] [address] [place] [address], [place] [address] 06 Jan, 2012 [facility] [address] [id number] [address] [place] [address], [place] [address] 04 Jan, 2013 [facility] [address] [id number] [address] [place] [address], [place] [address] Jan, [facility] [address] [id number] [address] [place] [address], [place] [address] Dec, [facility] [address] [id number] [address] [place] [address], [place] [address] Dec, [facility] [address] [id number] [address] [place] [address], [place] [address] Dec, [facility] [address] [id number] [address] [place] [address], [place] [address] Dec, [facility] [address] [id number] [address] [place] [address], [place] [address] Dec, [facility] [address] [id number] [address] [place] [address], [place] [address] Dec, [facility] [address] [id number] [address] [place] [address], [place] [address] Dec, [facility] [address] [id number] [address] [place] [address], [place] [address] Dec, [facility] [address] [id number] [address] [place] [address], [place] [address] Nov, [facility] [address] [id number] [address] [place] [address], [place] [address] Nov, [facility] [address] [id number] [address] [place] [address], [place] [address] Nov, [facility] [address] [id number] [address] [place] [address], [place] [address] Nov, [facility] [address] [id number] [address] [place] [address], [place] [address] Nov, [facility] [address] [id number] [address] [place] [address], [place] [address] Nov, [facility] [address] [id number] [address] [place] [address], [place] [address] Oct, [facility] [place] [address] [id number] [place] [id number] Oct, [facility] [place] [address] [id number] [place] [id number] Oct, [facility] [place] [address] [id number] [place] [id number] Oct, [facility] [place] [address] [id number] [place] [id number] Oct, [facility] [address] [id number] [address] [place] [address], [place] [address] Oct, [facility] [address] [id number] [address] [place] [address], [place] [address] Oct, [facility] [address] [id number] [address] [place] [address] Oct, [facility] [address] [id number] [address] [place] [address] Oct, [facility] [address] [id number] [address] [place] [address], [place] [address] Oct, [facility] [address] [id number] [address] [place] [address], [place] [address] 05 Oct, 2012 [facility] [address] [id number] [address] [place] [address], [place] [address] September, [facility] [address] [id number] [address] [place] [address], [place] [address] Aug, [facility] [address] [id number] [address] [place] [address], [place] [address] Aug, [facility] [address] [id number] [address] [place] [address], [place] [address] Aug, [facility] [address] [id number] [address] [place] [address], [place] [address] Aug, [facility] [address] [id number] [address] [place] [address], [place] [address] Jul, [facility] [address] [id number] [address] [place] [address], [place] [address] Jul, [facility] [address] [id number] [address] [place] [address], [place] [address] Jul, [facility] [address] [id number] [address] [place] [address], [place] [address] Jul, [facility] [address] [id number] [address] [place] [address], [place] [address] Jul, [facility] [address] [id number] [address] [place] [address], [place] [address] Jun, [facility] [address] [id number] [address] [place] [address], [place] [address] Jun, [facility] [address] [id number] [address] [place] [address], [place] [address] Jun, [facility] [address] [id number] [address] [place] [address], [place] [address] May, [facility] [address] [id number] [address] [place] [address], [place] [address] May, [facility] [address] [id number] [address] [place] [address], [place] [address] 14 May, 2012 [facility] [address] [id number] [address] [place] [address], [place] [address] 11 May, 2012 [facility] [address] [id number] [address] [place] [address], [place] [address] 07 May, 2012 [facility] [address] [id number] [address] [place] [address], [place] [address] 04 May, 2012 [facility] [address] [id number] [address] [place] [address], [place] [address] 18 Apr, 2012 [facility] [address] [id number] [address] [place] [address], [place] [address] 18 Apr, 2012 [facility] [address] [id number] [address] [place] [address], [place] [address] 13 Apr, 2012 [facility] [address] [id number] [address] [place] [address], [place] [address] 13 Apr, 2012 [facility] [address] [id number] [address] [place] [address], [place] [address] 13 Apr, 2012 [facility] [address] [id number] [address] [place] [address], [place] [address] Apr, [facility] [address] [id number] [address] [place] [address], [place] [address] Apr, [facility] [address] [id number] [address] [place] [address], [place] [address] Mar, [facility] [address] [id number] [address] [place] [address], [place] [address] Mar, [facility] [address] [id number] [address] [place] [address], [place] [address] Mar, [facility] [address] [id number] [address] [place] [address], [place] [address] Mar, [facility] [address] [id number] [address] [place] [address], [place] [address] 18 Jan, 2012 [facility] [address] [id number] [address] [place] [address] Jan, [facility] [address] [id number] [address] [place] [address] Jan, [facility] [address] [id number] [address] [place] [address] Jan, [facility] [address] [id number] [place] [id number] Dec, [facility] [address] [id number] [address] [place] [address] Dec, [facility] [address] [id number] [place] [id number] Dec, [facility] [address] [id number] [address] [place] [address] Dec, [facility] [address] [id number] [address] [place] [address] Dec, [facility] [address] [id number] [address] [place] [address] Dec, [facility] [address] [id number] [address] [place] [address] Nov, [facility] [address] [id number] [address] [place] [address] Nov, [facility] [address] [facility] [id number] [address] [place] [address] Nov, IMMUNIZATIONS No Known Immunizations SOCIAL HISTORY Never Assessed REASON FOR VISIT PLAN OF CARE VITAL SIGNS Height 62 in 2013-05-23 Weight 333 lbs 2013-05-23 Temperature 99 degrees Fahrenheit 2013-05-23 Heart Rate 88 bpm 2013-05-23 Respiratory Rate 20 2013-05-23 Blood pressure systolic 138 mmHg 2013-05-23 Blood pressure diastolic 78 mmHg 2013-05-23 MEDICATIONS Unknown Medications RESULTS No Results PROCEDURES Procedure Date Ordered Result Body Site MEASURE BLOOD OXYGEN LEVEL May 23, 2013 INSTRUCTIONS MEDICATIONS ADMINISTERED No Known Medications [...] asthma(493.90) Medical History Near syncope 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
--- OUTSIDE RECORDS SUMMARY | 2019-11-03 19:23 | XMS REPORT ---
Author Author Anca Lucero Doctor Organization [facility] Address Unknown Phone Unavailable Care Team Providers Care Sales Manager Prearranged Funerals Name Role Phone Migration, Doctor Unavailable Unavailable PROBLEMS Type Condition ICD9-CM Code AHY77-ZP Code Onset Dates Condition S tatus SNOMED Code Problem Esophageal reflux K21.9 Active 24 4278746 Problem Dyslipidemia E78.5 12 Oct, 2017 Active 3709 21827 Problem Unspecified hypothyroidism E03.9 Act hernesto 72713145 Problem Generalized anxiety disorder F41.1 Apr, 200 8 Active 88560746 Problem Shortness of breath R06.02 Apr, Active 291319426 Problem Pulmonary embolus I26.99 13 Oct, 2011 Active 19822257 Problem Nonintractable migraine G43.009 08 Oct, 2015 Act hernesto 069990147 Problem Pre-diabetes R73.03 Active 2989237 02 Problem Morbid obesity with BMI of 50.0-59.9, adult Z68.43 Active 113508654 Problem Hypothyroidism E03.9 Active 94482 008 Problem Morbid obesity E66.01 Active 03025 6002 Problem Unspecified sleep apnea G47.30 Active 45291820 Problem Personal history of pulmonary embolism Z86.711 Active 724409054 Problem Osteoarthritis of right knee M17.11 13 May, 201 0 Active 084484660 Problem Renal stones N20.0 Active 2782052 7 Problem Coronary artery disease I25.10 Active 70295201 Problem Hyperlipidemia LDL goal <70 E78.5 Ac tive 17696765 Problem Migraine with aura and without status migrainosu s, not intractable G43.109 Active 5134174 ALLERGIES No Information ENCOUNTERS Encounter Location Date Diagnosis [facility] [address] [id number] [place] [address] 07 Jun, 2019 Personal history of pulmonary embolism Z 86.711 [facility] [address] [id number] [place] [address] 07 Jun, 2019 Personal history of pulmonary embolism Z 86.711 [place] [id number] [id number] [place] [address] May, [facility] [address] [place] [address] May, 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 and Dizziness R42 [facility] [address] [facility] [id number] [address] [place] [address] Apr, Non-recurrent acute suppurat hernesto otitis media of both ears without spontaneous rupture of tympanic membranes H66.003 [place] [address] [address] 08 Feb, 2019 Pre-diabetes R73.03 and Hyperlipidemia L DL goal <70 E78.5 [place] [address] [place] [id number] [place] [address] Feb, [place] [address] [address] Feb, [place] [address] [place] [id number] [place] [address] Jan, [place] [address] [address] Jan, [place] [address] [address] 18 Jan, 2019 Encounter for Medicare annual wellness e xam Z00.00 ; Hyperlipidemia LDL goal <70 E78.5 ; Coronary artery disease I25.10 ; Hypothyroidism E03.9 ; Osteoarthritis of right knee M17.11 ; Morbid obesity with BMI of 50.0-59.9, adult Z68.43 and Esophageal reflux K21.9 [place] [address] [address] Jan, Dysuria R30.0 and Hematuria, unspecified type R31.9 [place] [address] [place] [id number] [place] [address] Jan, Hematuria, unspecified type R31.9 [place] [address] [place] [address] [place] [address] Dec, Hematuria, unspecified type R31.9 [facility] [address] [address] Nov, Hematuria, unspecified type R31.[address] [place] [address] Nov, Other microscopic hematuria R31.29 [place] [address] [address] Nov, Vaginal gena B37.3 ; Other microscopi c hematuria R31.29 and Morbid obesity E66.01 [place] [address] [address] Nov, [place] [address] [address] Nov, [facility] N [place] [id number] [address] [place] [address] Nov, UTI symptoms R39.9 and Morbi d obesity E66.01 [place] [address] [address] Nov, [place] [address] [address] September, [place] [address] [address] September, [place] [address] [address] Aug, Right foot pain M79.671 and Morbid obesi ty E66.01 [place] [address] [address] Jul, Right foot pain M79.671 and Morbid obesi ty E66.01 [facility] [address] [facility] [id number] [address] [place] [address] Jul, Injury of right foot, initia l encounter S99.921A and Morbid obesity E66.01 [place] [address] [place] [id number] [place] [address] Jul, Recurrent syncope R55 and Morbid obesity E66.01 [place] [address] [place] [id number] [place] [address] Jul, [place] [address] [address] Jun, Hematuria, unspecified type R31.9 and BM I 50.0-59.9, adult Z68.43 [place] [address] [place] [id number] [place] [address] 07 Jun, 2018 [place] [address] [place] [address] 04 Jun, 2018 intermediate current use of ant icoagulant Z79.01 [facility] N [facility] [id number] [address] [place] [address] May, Ankle pain, right M25.571 an d BMI 50.0-59.9, adult Z68.43 [place] [address] [address] May, [place] [address] [address] May, [place] [address] [address] Apr, [place] [address] [address] Apr, [place] [address] [address] Apr, [facility] [address] [facility] [id number] [address] [place] [address] Apr, BMI 50.0-59.9, adult Z68.43 and Weakness R53.1 [place] [address] [address] Apr, [facility] [place] [address] [address] Apr, Dysuria R30.0 ; Hematuria R3 1.9 ; Renal lithiasis N20.0 and BMI 50.0-59.9, adult Z68.43 [place] [address] [address] Apr, [place] [address] [address] Apr, [place] [address] [address] Apr, Hypothyroidism E03.9 [place] [address] [address] Apr, Burning with urination R30.0 ; 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, 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 ; Acute bilateral low back pain without sciatica M54.5 and BMI 50.0-59.9, adult Z68.43 [place] [address] [address] Mar, Hypothyroidism E03.9 [place] [address] [address] Feb, [facility] [place] [address] [address] 15 Jan, 2018 [place] [address] [address] 07 Jan, 2018 Acute non-recurrent maxillary sinusitis J01.00 and BMI 50.0-59.9, adult Z68.43 [facility] [address] [address] 04 Jan, 2018 Congestion of upper respirat ory tract J98.8 and BMI 50.0-59.9, adult Z68.43 [place] [address] [address] Dec, Type 2 diabetes mellitus with diabetic n europathic arthropathy, 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 ; Morbid obesity with BMI of 50.0-59.9, adult Z68.43 ; Hypothyroidism E03.9 ; Coronary artery disease I25.10 ; Hyperlipidemia LDL goal <70 E78.5 ; Right lower quadrant abdominal pain R10.31 and Acute cystitis with hematuria N30.01 [facility] [address] [facility] [id number] [address] [place] [address] Dec, Migraine with aura and witho ut status migrainosus, not intractable G43.109 ; Dehydration symptoms R63.8 and BMI 50.0-59.9, adult Z68.43 [place] [address] [address] Oct, [place] [address] [address] Oct, [place] [address] [address] Oct, [facility] [address] [address] September, [place] [address] [address] September, Type 2 diabetes mellitus with diabetic n europathic arthropathy, 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 ; Hyperlipidemia, unspecified hyperlipidemia type E78.5 ; Personal history of pulmonary embolism Z86.711 ; Coronary artery disease I25.10 and Hypothyroidism E03.9 [facility] [address] [address] September, [place] [address] [address] Aug, Type 2 diabetes mellitus with diabetic [...] and with status migrainosus G43.011 [place] [address] [address] Aug, [place] [address] [address] Aug, [place] [address] [address] Jul, Renal stones N20.0 [facility] [address] [facility] [id number] [address] [place] [address] Jun, Back pain M54.9 ; Kidney sto radha N20.0 and BMI 50.0-59.9, adult Z68.43 [place] [address] [address] Jun, [place] [address] [address] Apr, [place] [address] [address] Apr, [place] [address] [address] Apr, Right foot pain M79.671 ; Acute gout inv olving toe of right foot, 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 and Arthritis M19.90 [place] [address] [address] 06 Apr, 2017 Gastroesophageal reflux disease without esophagitis K21.9 [place] [address] [address] 16 Mar, 2017 Hypothyroidism, unspecified E03.9 [place] [address] [address] 11 Feb, 2017 [place] [address] [address] 25 Jan, 2017 Cervicalgia of qnarewri-gvofxrp-tsdbe re gion M54.2 and Persistent headaches R51 [place] [address] [address] 20 Jan, 2017 [place] [address] [address] 12 Jan, 2017 Intractable migraine without aura and wi th status migrainosus G43.011 ; Cervical spine pain M54.2 ; Hyperlipidemia, unspecified hyperlipidemia type E78.5 ; Hypothyroidism E03.9 and Metabolic syndrome E88.81 [place] [address] [address] Jan, Hypothyroidism, unspecified E03.9 [place] [address] [address] Dec, Hypothyroidism, unspecified E03.9 [place] [address] [address] Dec, Hypothyroidism E03.9 [place] [address] [address] Nov, Laceration of left great toe w/o foreign body w/o damage to nail, initial encounter S91.112A [facility] [address] [facility] [id number] [address] [place] [address] Oct, Pain in left knee M25.562 an d Arthritis M19.90 [place] [address] [address] Oct, Hypothyroidism, unspecified E03.9 and Hy perlipidemia, unspecified hyperlipidemia type E78.5 [place] [address] [address] Oct, Gastroesophageal reflux disease without esophagitis K21.9 [place] [address] [address] 14 Oct, 2016 Metabolic syndrome E88.81 ; Personal his tory of pulmonary embolism Z86.711 ; Other specified hypothyroidism E03.8 and Hyperlipidemia, unspecified hyperlipidemia type E78.[address] [address] 13 Oct, 2017 Personal history of pulmonary embolism Z 86.711 ; Dysuria R30.0 ; Metabolic syndrome E88.81 ; Other specified hypothyroidism E03.8 ; Hyperlipidemia, unspecified hyperlipidemia type E78.5 and Morbid obesity with BMI of 50.0-59.9, adult Z68.[address] [address] September, [facility] [address] [address] September, Wrist pain, left M25.532 and Acute pain of left knee M25.[address] [address] Jul, Dysuria R30.[address] [address] Jul, Dysuria R30.[address] [address] Jul, Left lower quadrant pain R10.[address] [address] Jul, [address] [address] Jul, Coronary artery disease I25.10 ; Family history of diabetes mellitus Z83.3 ; Morbid obesity with BMI of 50.0-59.9, adult Z68.43 ; Metabolic syndrome E88.81 ; Personal history of pulmonary embolism Z86.711 ; Gastroesophageal reflux disease without esophagitis K21.9 ; Hypothyroidism, unspecified E03.9 ; Hyperlipidemia, unspecified hyperlipidemia type E78.5 and Left lower quadrant pain R10.32 [facility] [place] [id number] [address] [place] [address] Jul, [facility] [address] [address] Jul, Morbid obesity with BMI of 5 0.0-59.9, adult Z68.43 [facility] [address] [address] Jul, Generalized abdominal pain R 10.84 [facility] [address] [address] 02 Jun, 2016 Muscle strain of right upper back, initial encounter S29.012A [facility] [address] [address] May, Foreign body (FB) in soft ti ssue M79.[address] [address] Mar, Hypothyroidism, unspecified E03.9 and Ar thritis M19.[address] [address] Feb, Coronary artery disease I25.10 ; Morbid obesity with BMI of 50.0-59.9, adult Z68.43 ; Metabolic syndrome E88.81 ; Gastroesophageal reflux disease without esophagitis K21.9 ; Hypothyroidism, unspecified E03.9 ; Personal history of pulmonary embolism Z86.711 and Hyperlipidemia, unspecified hyperlipidemia type E78.[address] [address] Feb, [facility] [address] [address] Jan, Acute right-sided thoracic b ack pain M54.[address] [address] Jan, Acute pain of left knee M25.[address] [address] Dec, Dysuria R30.0 ; Metabolic syndrome E88.8 1 ; Acute pain of left knee M25.562 ; Acute cystitis with hematuria N30.01 and Acute left eye pain H57.[address] [address] Dec, [place] [address] [address] Dec, [place] [address] [address] Dec, Hypothyroidism, unspecified E03.9 [place] [address] [address] Dec, [place] [address] [address] Nov, Peripheral edema R60.9 and Acute pain of left knee M25.562 [facility] [place] [address] [place] [id number] [place] [address] September, [place] [address] [address] September, Metabolic syndrome E88.81 and Allergy, s ubsequent encounter T78.40XD [facility] [place] [address] [facility] [id number] [address] [place] [address] September, Muscle strain T14.8 [place] [address] [address] Aug, Chest pressure R07.89 ; Metabolic syndro me E88.81 ; Morbid obesity with BMI of 50.0-59.9, adult Z68.43 ; Esophageal reflux 530.81 and Shortness of breath R06.02 [place] [address] [address] Aug, [place] [address] [address] Aug, [place] [address] [address] Aug, Hypothyroidism, unspecified E03.9 [place] [address] [address] Aug, Routine health maintenance Z00.00 [facility] [place] [address] [facility] [id number] [address] [place] [address] Aug, [place] [address] [address] 31 Jul, 2015 Routine health maintenance Z00.00 ; Fami ly history of diabetes mellitus Z83.3 ; Family history of cancer Z80.9 and Morbid obesity with BMI of 50.0-59.9, adult Z68.43 [facility] [place] [address] [place] [id number] [place] [address] 28 Jul, 2015 Allergic rhinitis J30.9 and Postnasal drip R09.[address] [address] 18 Jul, 2015 Influenza J11.1 [facility] [address] [address] Jul, Dysuria R30.0 [place] [address] [address] Apr, [address] [address] Mar, Acute upper respiratory infection, unspe cified J06.9 and Hypothyroidism E03.[address] [address] Mar, [place] [address] [address] Feb, Coronary artery disease I25.10 [place] [address] [address] Feb, Left foot pain M79.[address] [address] Jan, UTI (urinary tract infection) 599.[address] [address] Jan, Urinary tract infection, site not specif ied 599.0 [facility] [address] [place] [id number] [place] [address] Jan, Urinary tract infection, site not specif ied 599.0 [facility] [address] [address] Jan, [facility] [address] [address] Dec, Headache 784.0 [facility] [address] [address] Dec, Urinary tract infection, site not specif ied 599.0 [place] [address] [address] Dec, Urinary tract infection, site not specif ied 599.0 [place] [address] [address] Dec, Urinary tract infection, site not specif ied 599.0 [place] [address] [address] Nov, Unspecified sleep apnea 780.57 ; Encount er for long-term (current) use of anticoagulants V58.61 ; Routine general medical examination at health care facility V70.0 and Arthritis of both knees 716.96 [place] [address] [address] September, Cat bite of hand 882.0 and Rectal bleedi ng 569.3 [facility] [address] [place] [id number] [place] [address] Aug, [facility] [address] [address] Aug, [facility] [address] [address] Jul, [facility] [address] [address] Jul, [facility] [address] [place] [address] Jul, [facility] [address] [id number] [place] [address] Jul, [facility] [address] [id number] [place] [address] Jul, [facility] [address] [id number] [place] [address] Jul, [facility] [address] [id number] [place] [address] Jul, [facility] [address] [id number] [place] [address] Jul, [facility] [address] [id number] [place] [address] May, [facility] [address] [id number] [place] [address] May, [facility] [address] [id number] [place] [address] May, [facility] [address] [id number] [place] [address] May, [facility] [address] [id number] [place] [address] May, [facility] [address] [id number] [place] [address] May, [facility] [address] [id number] [place] [address] May, [facility] [address] [id number] [place] [address] Mar, [facility] [address] [id number] [place] [address] Mar, [facility] [address] [id number] [place] [address] Jan, [facility] [address] [id number] [place] [address] Jan, [facility] [address] [id number] [place] [address] 08 Jan, 2013 [facility] [address] [facility] [id number] [place] [address] Jan, 2013 [facility] [address] [facility] [id number] [place] [address] Jan, 2013 [facility] [address] [id number] [place] [address] Jan, 2013 [facility] [address] [facility] [id number] [place] [address] Dec, [facility] [address] [id number] [place] [address] Dec, [facility] [address] [id number] [place] [address] Dec, [facility] [address] [id number] [place] [address] Dec, [facility] [address] [id number] [place] [address] Dec, [facility] [address] [id number] [place] [address] Dec, [facility] [address] [id number] [place] [address] Dec, [facility] [address] [id number] [place] [address] Dec, [facility] [address] [id number] [place] [address] Dec, [facility] [address] [facility] [id number] [place] [address] Dec, [facility] [address] [id number] [place] [address] Nov, [facility] [address] [id number] [place] [address] Nov, [facility] [address] [id number] [place] [address] September, [facility] [address] [facility] [id number] [place] [address] September, [facility] [address] [facility] [id number] [facility] [place] [address] September, [facility] [address] [id number] [place] [address] September, [facility] [facility] [address] [id number] [place] [address] Aug, [facility] [place] [facility] [address] [facility] [id number] [place] [address] Aug, [facility] [place] [facility] [address] [id number] [place] [address] Aug, [facility] [place] [facility] [address] [id number] [place] [address] Aug, [facility] [place] [facility] [address] [id number] [place] [address] Aug, [facility] [place] [facility] [address] [id number] [place] [address] Aug, [facility] [place] [facility] [address] [id number] [place] [address] Aug, [facility] [place] [facility] [address] [id number] [place] [address] Aug, [facility] [place] [facility] [address] [id number] [place] [address] Aug, [facility] [place] [facility] [address] [facility] [id number] [place] [address] Aug, [facility] [place] [facility] [address] [id number] [place] [address] Aug, [facility] [place] [facility] [address] [id number] [place] [address] Aug, [facility] [place] [facility] [address] [id number] [place] [address] Jul, [facility] [place] [facility] [address] [id number] [place] [address] Jul, [facility] [place] [facility] [address] [facility] [id number] [place] [address] Jul, [facility] [place] [facility] [address] [id number] [place] [address] Jul, [facility] [place] [facility] [address] [id number] [place] [address] Jul, [facility] [place] [facility] [address] [id number] [place] [address] Jul, [facility] [place] [facility] [address] [id number] [place] [address] Jul, [facility] [place] [facility] [address] [id number] [place] [address] Jul, [facility] [place] [facility] [address] [id number] [place] [address] Jul, [facility] [place] [facility] [address] [id number] [place] [address] Jul, [facility] [place] [facility] [address] [id number] [place] [address] Jun, [facility] [address] [id number] [place] [address] Jun, [facility] [address] [id number] [place] [address] Jun, [facility] [address] [id number] [place] [address] Jun, [facility] [address] [id number] [place] [address] Jun, [facility] [address] [id number] [place] [address] Jun, [facility] [address] [id number] [place] [address] Jun, [facility] [address] [id number] [place] [address] Jun, [facility] [address] [facility] [id number] [place] [address] Jun, [facility] [address] [facility] [id number] [facility] [place] [address] Jun, [facility] [address] [facility] [id number] [place] [address] Jun, [facility] [address] [facility] [id number] [place] [address] Jun, [facility] [address] [facility] [id number] [place] [address] May, [facility] [address] [id number] [place] [address] May, [facility] [address] [id number] [place] [address] May, [facility] [address] [id number] [place] [address] May, [facility] [address] [id number] [place] [address] May, [facility] [address] [id number] [place] [address] May, [facility] [address] [id number] [place] [address] May, [facility] [address] [id number] [place] [address] May, [facility] [address] [id number] [place] [address] May, [facility] [address] [id number] [place] [address] May, [facility] [address] [id number] [place] [address] May, [facility] [address] [id number] [place] [address] May, [facility] [address] [id number] [place] [address] May, [facility] [address] [id number] [place] [address] May, [facility] [address] [id number] [place] [address] May, [facility] [address] [id number] [place] [address] Apr, [facility] [address] [id number] [place] [address] Apr, [facility] [address] [id number] [place] [address] Apr, [facility] [address] [id number] [place] [address] Apr, [facility] [address] [id number] [place] [address] Mar, [facility] [address] [id number] [place] [address] Mar, [facility] [address] [id number] [place] [address] Mar, [facility] [address] [id number] [place] [address] Mar, [facility] [address] [id number] [place] [address] Mar, [facility] [address] [id number] [place] [address] Mar, [facility] [address] [id number] [place] [address] Mar, [facility] [id number] [place] [address] Mar, [facility] [address] [id number] [place] [address] Mar, [facility] [address] [id number] [place] [address] Mar, [facility] [address] [id number] [place] [address] Mar, 2012 [facility] [address] [id number] [place] [address] Mar, [facility] [address] [id number] [place] [address] Feb, [facility] [address] [id number] [place] [address] 18 Jan, 2013 [facility] [address] [facility] [id number] [place] [address] 17 Jan, 2012 [facility] [address] [id number] [place] [address] Jan, [facility] [address] [id number] [place] [address] Jan, [facility] [address] [id number] [place] [address] Jan, [facility] [address] [id number] [place] [address] Dec, [facility] [address] [id number] [place] [address] Dec, [facility] [address] [id number] [place] [address] Dec, [facility] [address] [id number] [place] [address] 16 Dec, 2012 [facility] [address] [id number] [place] [address] Dec, [facility] [address] [id number] [place] [address] Dec, [facility] [address] [id number] [place] [address] Dec, [facility] [address] [id number] [place] [address] Dec, [facility] [address] [id number] [place] [address] Nov, [facility] [address] [id number] [place] [address] Nov, [facility] [address] [id number] [place] [address] Nov, [facility] [address] [id number] [place] [address] Nov, [facility] [address] [id number] [place] [address] Nov, [facility] [address] [id number] [place] [address] Nov, [facility] [address] [id number] [place] [address] Oct, [facility] [address] [facility] [id number] Oct, [facility] [address] [facility] [id number] Oct, [facility] [address] [facility] [id number] Oct, [facility] [address] [facility] [id number] Oct, [facility] [address] [id number] [place] [address] Oct, [facility] [address] [id number] [place] [address] Oct, [facility] [address] [id number] [place] [address] Oct, [facility] [address] [id number] [place] [address] Oct, [facility] [address] [id number] [place] [address] Oct, [facility] [address] [id number] [place] [address] Oct, [facility] [address] [id number] [place] [address] September, [facility] [address] [facility] [id number] [place] [address] Aug, [facility] [address] [id number] [place] [address] Aug, [facility] [address] [id number] [place] [address] Aug, [facility] [address] [id number] [place] [address] Aug, [facility] [address] [facility] [id number] [place] [address] Jul, [facility] [address] [id number] [place] [address] Jul, [facility] [address] [id number] [place] [address] Jul, [facility] [address] [id number] [place] [address] Jul, [facility] [address] [id number] [place] [address] Jul, [facility] [address] [id number] [place] [address] Jun, [facility] [address] [id number] [place] [address] Jun, [facility] [address] [id number] [place] [address] Jun, [facility] [address] [id number] [place] [address] May, [facility] [address] [id number] [place] [address] May, [facility] [address] [id number] [place] [address] May, [facility] [address] [id number] [place] [address] May, [facility] [address] [id number] [place] [address] May, [facility] [address] [id number] [place] [address] May, [facility] [address] [id number] [place] [address] Apr, [facility] [address] [id number] [place] [address] 18 Apr, 2012 [facility] [address] [id number] [place] [address] Apr, [facility] [address] [id number] [place] [address] Apr, [facility] [address] [id number] [place] [address] Apr, [facility] [address] [id number] [place] [address] Apr, [facility] [address] [id number] [place] [address] Apr, [facility] [address] [id number] [place] [address] Mar, [facility] [address] [id number] [place] [address] Mar, [facility] [address] [id number] [place] [address] Mar, [facility] [address] [id number] [place] [address] Mar, [facility] [address] [id number] [place] [address] 18 Jan, 2012 [facility] [id number] [place] [address] 10 Jan, 2012 [facility] [address] [id number] [place] [address] Jan, [facility] [address] [id number] [place] [address] 06 Jan, [address] [facility] [address] [id number] [place] [id number] Dec, [facility] [id number] [place] [address] Dec, [facility] [address] [id number] [place] [id number] Dec, [facility] [id number] [place] [address] Dec, [facility] [address] [address] Dec, [facility] [address] [address] Dec, [facility] [address] [address] Nov, [facility] [address] [address] Nov, [facility] [id number] [place] [address] Nov, IMMUNIZATIONS No Known Immunizations SOCIAL HISTORY Never Assessed REASON FOR VISIT PLAN OF CARE VITAL SIGNS Height 62 in 2013-05-30 Weight 329.2 lbs 2013-05-30 Temperature 98 degrees Fahrenheit 2013-05-30 Heart Rate 92 bpm 2013-05-30 Respiratory Rate 22 2013-05-30 Blood pressure systolic 134 mmHg 2013-05-30 Blood pressure diastolic 80 mmHg 2013-05-30 MEDICATIONS Unknown Medications RESULTS No Results PROCEDURES [...] Medical History Near syncope Medical History intermediate current use of anticoagulant Medical History Renal [...]
--- OUTSIDE RECORDS SUMMARY | 2019-11-03 19:23 | XMS REPORT ---
Author Author Anca Lucero Doctor Organization [facility] Address Unknown Phone Unavailable Care Team Providers Care Student Financial Aid Manager Name Role Phone Migration, Doctor Unavailable Unavailable PROBLEMS Type Condition ICD9-CM Code LPV50-YI Code Onset Dates Condition S tatus SNOMED Code Problem Esophageal reflux K21.9 Active 24 6230492 Problem Dyslipidemia E78.5 12 Oct, 2017 Active 3709 53274 Problem Unspecified hypothyroidism E03.9 Act hernesto 24427003 Problem Generalized anxiety disorder F41.1 Apr, 200 8 Active 53402997 Problem Shortness of breath R06.02 Apr, Active 357764151 Problem Pulmonary embolus I26.99 13 Oct, 2011 Active 48398454 Problem Nonintractable migraine G43.009 08 Oct, 2015 Act hernesto 821489011 Problem Pre-diabetes R73.03 Active 8271142 02 Problem Morbid obesity with BMI of 50.0-59.9, adult Z68.43 Active 311986927 Problem Hypothyroidism E03.9 Active 45685 008 Problem Morbid obesity E66.01 Active 41042 6002 Problem Unspecified sleep apnea G47.30 Active 85782365 Problem Personal history of pulmonary embolism Z86.711 Active 421255222 Problem Osteoarthritis of right knee M17.11 13 May, 201 0 Active 786699009 Problem Renal stones N20.0 Active 7766589 7 Problem Coronary artery disease I25.10 Active 65540464 Problem Hyperlipidemia LDL goal <70 E78.5 Ac tive 31690171 Problem Migraine with aura and without status migrainosu s, not intractable G43.109 Active 0121842 ALLERGIES No Information ENCOUNTERS Encounter Location Date Diagnosis [facility] [address] [id number] [place] [address] 07 Jun, 2019 Personal history of pulmonary embolism Z 86.711 [facility] [address] [facility] [place] [address] 07 Jun, 2019 Personal history of pulmonary embolism Z 86.711 [place] [address] [facility] [place] [address] May, 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 [address] [facility] [id number] [address] [place] [address] Apr, Non-recurrent acute suppurat hernesto otitis media of both ears without spontaneous rupture of tympanic membranes H66.003 [place] [address] [address] 08 Feb, 2019 Pre-diabetes R73.03 and Hyperlipidemia L DL goal <70 E78.5 [place] [address] [place] [id number] [place] [address] Feb, [place] [address] [address] Feb, [place] [address] [place] [id number] [place] [address] Jan, [place] [address] [address] Jan, [place] [address] [address] 18 Jan, 2019 Encounter for Medicare annual wellness e xam Z00.00 ; Hyperlipidemia LDL goal <70 E78.5 ; Coronary artery disease I25.10 ; Hypothyroidism E03.9 ; Osteoarthritis of right knee M17.11 ; Morbid obesity with BMI of 50.0-59.9, adult Z68.43 and Esophageal reflux K21.9 [place] [address] [address] Jan, Dysuria R30.0 and Hematuria, unspecified type R31.9 [place] [address] [place] [id number] [place] [address] Jan, Hematuria, unspecified type R31.9 [place] [address] [place] [address] [place] [address] Dec, Hematuria, unspecified type R31.9 [facility] [address] [address] Nov, Hematuria, unspecified type R31.[address] [place] [address] Nov, Other microscopic hematuria R31.29 [place] [address] [address] Nov, Vaginal gena B37.3 ; Other microscopi c hematuria R31.29 and Morbid obesity E66.01 [place] [address] [address] Nov, [place] [address] [address] Nov, [facility] N [place] [id number] [address] [place] [address] Nov, UTI symptoms R39.9 and Morbi d obesity E66.01 [place] [address] [address] Nov, [place] [address] [address] September, [place] [address] [address] September, [place] [address] [address] Aug, Right foot pain M79.671 and Morbid obesi ty E66.01 [place] [address] [address] Jul, Right foot pain M79.671 and Morbid obesi ty E66.[address] [facility] [address] [facility] [id number] [address] [place] [address] Jul, Injury of right foot, initia l encounter S99.921A and Morbid obesity E66.01 [place] [address] [place] [id number] [place] [address] Jul, Recurrent syncope R55 and Morbid obesity E66.01 [place] [address] [place] [id number] [place] [address] Jul, [place] [address] [address] Jun, Hematuria, unspecified type R31.9 and BM I 50.0-59.9, adult Z68.43 [place] [address] [place] [id number] [place] [address] 07 Jun, 2018 [place] [address] [place] [address] 04 Jun, 2018 long-term current use of ant icoagulant Z79.01 [facility] N [facility] [id number] [address] [place] [address] May, Ankle pain, right M25.571 an d BMI 50.0-59.9, adult Z68.43 [place] [address] [address] May, [place] [address] [address] May, [place] [address] [address] Apr, [place] [address] [address] Apr, [place] [address] [address] Apr, [facility] [address] [facility] [id number] [address] [place] [address] Apr, BMI 50.0-59.9, adult Z68.43 and Weakness R53.1 [place] [address] [address] Apr, [facility] [place] [address] [address] Apr, Dysuria R30.0 ; Hematuria R3 1.9 ; Renal lithiasis N20.0 and BMI 50.0-59.9, adult Z68.43 [place] [address] [address] Apr, [place] [address] [address] Apr, [place] [address] [address] Apr, Hypothyroidism E03.9 [place] [address] [address] Apr, Burning with urination R30.0 ; 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, 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 ; Acute bilateral low back pain without sciatica M54.5 and BMI 50.0-59.9, adult Z68.43 [place] [address] [address] Mar, Hypothyroidism E03.9 [place] [address] [address] Feb, [facility] [place] [address] [address] 15 Jan, 2018 [place] [address] [address] 07 Jan, 2018 Acute non-recurrent maxillary sinusitis J01.00 and BMI 50.0-59.9, adult Z68.43 [facility] [address] [address] 04 Jan, 2018 Congestion of upper respirat ory tract J98.8 and BMI 50.0-59.9, adult Z68.43 [place] [address] [address] Dec, Type 2 diabetes mellitus with diabetic n europathic arthropathy, 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 ; Morbid obesity with BMI of 50.0-59.9, adult Z68.43 ; Hypothyroidism E03.9 ; Coronary artery disease I25.10 ; Hyperlipidemia LDL goal <70 E78.5 ; Right lower quadrant abdominal pain R10.31 and Acute cystitis with hematuria N30.01 [facility] [address] [facility] [id number] [address] [place] [address] Dec, Migraine with aura and witho ut status migrainosus, not intractable G43.109 ; Dehydration symptoms R63.8 and BMI 50.0-59.9, adult Z68.43 [place] [address] [address] Oct, [place] [address] [address] Oct, [place] [address] [address] Oct, [facility] [address] [address] September, [place] [address] [address] September, Type 2 diabetes mellitus with diabetic n europathic arthropathy, 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 ; Hyperlipidemia, unspecified hyperlipidemia type E78.5 ; Personal history of pulmonary embolism Z86.711 ; Coronary artery disease I25.10 and Hypothyroidism E03.9 [facility] [address] [address] September, [place] [address] [address] Aug, Type 2 diabetes mellitus with diabetic [...] without aura and with status migrainosus G43.011 [place] [address] [address] Aug, [place] [address] [address] Aug, [place] [address] [address] Jul, Renal stones N20.0 [facility] [address] [facility] [id number] [address] [place] [address] Jun, Back pain M54.9 ; Kidney sto radha N20.0 and BMI 50.0-59.9, adult Z68.43 [place] [address] [address] Jun, [place] [address] [address] Apr, [place] [address] [address] Apr, [place] [address] [address] Apr, Right foot pain M79.671 ; Acute gout inv olving toe of right foot, 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 and Arthritis M19.90 [place] [address] [address] 06 Apr, 2017 Gastroesophageal reflux disease without esophagitis K21.9 [place] [address] [address] 16 Mar, 2017 Hypothyroidism, unspecified E03.9 [place] [address] [address] 11 Feb, 2017 [place] [address] [address] 25 Jan, 2017 Cervicalgia of fuzqujsl-uujbmdi-xwotg re gion M54.2 and Persistent headaches R51 [place] [address] [address] 20 Jan, 2017 [place] [address] [address] 12 Jan, 2017 Intractable migraine without aura and wi th status migrainosus G43.011 ; Cervical spine pain M54.2 ; Hyperlipidemia, unspecified hyperlipidemia type E78.5 ; Hypothyroidism E03.9 and Metabolic syndrome E88.81 [place] [address] [address] Jan, Hypothyroidism, unspecified E03.9 [place] [address] [address] Dec, Hypothyroidism, unspecified E03.9 [place] [address] [address] Dec, Hypothyroidism E03.9 [place] [address] [address] Nov, Laceration of left great toe w/o foreign body w/o damage to nail, initial encounter S91.112A [facility] [address] [facility] [id number] [address] [place] [address] Oct, Pain in left knee M25.562 an d Arthritis M19.90 [place] [address] [address] Oct, Hypothyroidism, unspecified E03.9 and Hy perlipidemia, unspecified hyperlipidemia type E78.5 [place] [address] [address] Oct, Gastroesophageal reflux disease without esophagitis K21.9 [place] [address] [address] 14 Oct, 2016 Metabolic syndrome E88.81 ; Personal his tory of pulmonary embolism Z86.711 ; Other specified hypothyroidism E03.8 and Hyperlipidemia, unspecified hyperlipidemia type E78.[address] [address] 13 Oct, 2017 Personal history of pulmonary embolism Z 86.711 ; Dysuria R30.0 ; Metabolic syndrome E88.81 ; Other specified hypothyroidism E03.8 ; Hyperlipidemia, unspecified hyperlipidemia type E78.5 and Morbid obesity with BMI of 50.0-59.9, adult Z68.[address] [address] September, [facility] [address] [address] September, Wrist pain, left M25.532 and Acute pain of left knee M25.[address] [address] Jul, Dysuria R30.[address] [address] Jul, Dysuria R30.[address] [address] Jul, Left lower quadrant pain R10.[address] [address] Jul, [address] [address] Jul, Coronary artery disease I25.10 ; Family history of diabetes mellitus Z83.3 ; Morbid obesity with BMI of 50.0-59.9, adult Z68.43 ; Metabolic syndrome E88.81 ; Personal history of pulmonary embolism Z86.711 ; Gastroesophageal reflux disease without esophagitis K21.9 ; Hypothyroidism, unspecified E03.9 ; Hyperlipidemia, unspecified hyperlipidemia type E78.5 and Left lower quadrant pain R10.32 [facility] [place] [id number] [address] [place] [address] Jul, [facility] [address] [address] Jul, Morbid obesity with BMI of 5 0.0-59.9, adult Z68.43 [facility] [address] [address] Jul, Generalized abdominal pain R 10.84 [facility] [address] [address] 02 Jun, 2016 Muscle strain of right upper back, initial encounter S29.012A [facility] [address] [address] May, Foreign body (FB) in soft ti ssue M79.[address] [address] Mar, Hypothyroidism, unspecified E03.9 and Ar thritis M19.[address] [address] Feb, Coronary artery disease I25.10 ; Morbid obesity with BMI of 50.0-59.9, adult Z68.43 ; Metabolic syndrome E88.81 ; Gastroesophageal reflux disease without esophagitis K21.9 ; Hypothyroidism, unspecified E03.9 ; Personal history of pulmonary embolism Z86.711 and Hyperlipidemia, unspecified hyperlipidemia type E78.[address] [address] Feb, [facility] [address] [address] Jan, Acute right-sided thoracic b ack pain M54.[address] [address] Jan, Acute pain of left knee M25.[address] [address] Dec, Dysuria R30.0 ; Metabolic syndrome E88.8 1 ; Acute pain of left knee M25.562 ; Acute cystitis with hematuria N30.01 and Acute left eye pain H57.[address] [address] Dec, [place] [address] [address] Dec, [place] [address] [address] Dec, Hypothyroidism, unspecified E03.9 [place] [address] [address] Dec, [place] [address] [address] Nov, Peripheral edema R60.9 and Acute pain of left knee M25.562 [facility] [place] [address] [place] [id number] [place] [address] September, [place] [address] [address] September, Metabolic syndrome E88.81 and Allergy, s ubsequent encounter T78.40XD [facility] [place] [address] [facility] [id number] [address] [place] [address] September, Muscle strain T14.8 [place] [address] [address] Aug, Chest pressure R07.89 ; Metabolic syndro me E88.81 ; Morbid obesity with BMI of 50.0-59.9, adult Z68.43 ; Esophageal reflux 530.81 and Shortness of breath R06.02 [place] [address] [address] Aug, [place] [address] [address] Aug, [place] [address] [address] Aug, Hypothyroidism, unspecified E03.9 [place] [address] [address] Aug, Routine health maintenance Z00.00 [facility] [place] [address] [facility] [id number] [address] [place] [address] Aug, [place] [address] [address] 31 Jul, 2015 Routine health maintenance Z00.00 ; Fami ly history of diabetes mellitus Z83.3 ; Family history of cancer Z80.9 and Morbid obesity with BMI of 50.0-59.9, adult Z68.43 [facility] [place] [address] [place] [id number] [address] [place] [address] 28 Jul, 2015 Allergic rhinitis J30.9 and Postnasal drip R09.[address] [address] 18 Jul, 2015 Influenza J11.1 [facility] [address] [address] Jul, Dysuria R30.0 [place] [address] [address] Apr, [address] [address] Mar, Acute upper respiratory infection, unspe cified J06.9 and Hypothyroidism E03.[address] [address] Mar, [place] [address] [address] Feb, Coronary artery disease I25.10 [place] [address] [address] Feb, Left foot pain M79.[address] [address] Jan, UTI (urinary tract infection) 599.[address] [address] Jan, Urinary tract infection, site not specif ied 599.0 [facility] [address] [place] [id number] [place] [address] Jan, Urinary tract infection, site not specif ied 599.0 [facility] [address] [address] Jan, [facility] [address] [address] Dec, Headache 784.0 [facility] [address] [address] Dec, Urinary tract infection, site not specif ied 599.0 [place] [address] [address] Dec, Urinary tract infection, site not specif ied 599.0 [place] [address] [address] Dec, Urinary tract infection, site not specif ied 599.0 [place] [address] [address] Nov, Unspecified sleep apnea 780.57 ; Encount er for long-term (current) use of anticoagulants V58.61 ; Routine general medical examination at health care facility V70.0 and Arthritis of both knees 716.96 [place] [address] [address] September, Cat bite of hand 882.0 and Rectal bleedi ng 569.3 [facility] [address] [place] [id number] [place] [address] Aug, [facility] [address] [address] Aug, [facility] [address] [address] Jul, [facility] [address] [address] Jul, [facility] [address] [place] [address] Jul, [facility] [address] [id number] [place] [address] Jul, [facility] [address] [id number] [place] [address] Jul, [facility] [address] [id number] [place] [address] Jul, [facility] [address] [id number] [place] [address] Jul, [facility] [address] [id number] [place] [address] Jul, [facility] [address] [id number] [place] [address] May, [facility] [address] [id number] [place] [address] May, [facility] [address] [id number] [place] [address] May, [facility] [address] [id number] [place] [address] May, [facility] [address] [id number] [place] [address] May, [facility] [address] [id number] [place] [address] May, [facility] [address] [id number] [place] [address] May, [facility] [address] [id number] [place] [address] Mar, [facility] [address] [id number] [place] [address] Mar, [facility] [address] [id number] [place] [address] Jan, [facility] [address] [id number] [place] [address] Jan, [facility] [address] [id number] [place] [address] 08 Jan, 2013 [facility] [address] [facility] [id number] [place] [address] Jan, 2013 [facility] [address] [facility] [id number] [place] [address] Jan, 2013 [facility] [address] [id number] [place] [address] Jan, 2013 [facility] [address] [facility] [id number] [place] [address] Dec, [facility] [address] [id number] [place] [address] Dec, [facility] [address] [id number] [place] [address] Dec, [facility] [address] [id number] [place] [address] Dec, [facility] [address] [id number] [place] [address] Dec, [facility] [address] [id number] [place] [address] Dec, [facility] [address] [id number] [place] [address] Dec, [facility] [address] [id number] [place] [address] Dec, [facility] [address] [id number] [place] [address] Dec, [facility] [address] [facility] [id number] [place] [address] Dec, [facility] [address] [id number] [place] [address] Nov, [facility] [address] [id number] [place] [address] Nov, [facility] [address] [id number] [place] [address] September, [facility] [address] [facility] [id number] [place] [address] September, [facility] [address] [facility] [id number] [facility] [place] [address] September, [facility] [place] [facility] [address] [id number] [place] [address] September, [facility] [place] [facility] [address] [id number] [place] [address] Aug, [facility] [place] [facility] [address] [facility] [id number] [place] [address] Aug, [facility] [place] [facility] [address] [id number] [place] [address] Aug, [facility] [place] [facility] [address] [id number] [place] [address] Aug, [facility] [place] [facility] [address] [id number] [place] [address] Aug, [facility] [place] [facility] [address] [id number] [place] [address] Aug, [facility] [place] [facility] [address] [id number] [place] [address] Aug, [facility] [place] [facility] [address] [id number] [place] [address] Aug, [facility] [place] [facility] [address] [id number] [place] [address] Aug, [facility] [place] [facility] [address] [facility] [id number] [place] [address] Aug, [facility] [place] [facility] [address] [id number] [place] [address] Aug, [facility] [place] [facility] [address] [id number] [place] [address] Aug, [facility] [place] [facility] [address] [id number] [place] [address] Jul, [facility] [place] [facility] [address] [id number] [place] [address] Jul, [facility] [place] [facility] [address] [facility] [id number] [place] [address] Jul, [facility] [place] [facility] [address] [id number] [place] [address] Jul, [facility] [place] [facility] [address] [id number] [place] [address] Jul, [facility] [place] [facility] [address] [id number] [place] [address] Jul, [facility] [place] [facility] [address] [facility] [id number] [place] [address] Jul, [facility] [address] [id number] [place] [address] Jul, [facility] [address] [id number] [place] [address] Jul, [facility] [address] [id number] [place] [address] Jul, [facility] [address] [id number] [place] [address] Jun, [facility] [address] [id number] [place] [address] Jun, [facility] [address] [id number] [place] [address] Jun, [facility] [address] [id number] [place] [address] Jun, [facility] [address] [id number] [place] [address] Jun, [facility] [address] [id number] [place] [address] Jun, [facility] [address] [id number] [place] [address] Jun, [facility] [address] [id number] [place] [address] Jun, [facility] [address] [facility] [id number] [place] [address] Jun, [facility] [address] [facility] [id number] [facility] [place] [address] Jun, [facility] [address] [facility] [id number] [place] [address] Jun, [facility] [address] [facility] [id number] [place] [address] Jun, [facility] [address] [facility] [id number] [place] [address] May, [facility] [address] [id number] [place] [address] May, [facility] [address] [id number] [place] [address] May, [facility] [address] [id number] [place] [address] May, [facility] [address] [id number] [place] [address] May, [facility] [address] [id number] [place] [address] May, [facility] [address] [id number] [place] [address] May, [facility] [address] [id number] [place] [address] May, [facility] [address] [id number] [place] [address] May, [facility] [address] [id number] [place] [address] May, [facility] [address] [id number] [place] [address] May, [facility] [address] [id number] [place] [address] May, [facility] [address] [id number] [place] [address] May, [facility] [address] [id number] [place] [address] May, [facility] [address] [id number] [place] [address] May, [facility] [address] [id number] [place] [address] Apr, [facility] [address] [id number] [place] [address] Apr, [facility] [address] [id number] [place] [address] Apr, [facility] [address] [id number] [place] [address] Apr, [facility] [address] [id number] [place] [address] Mar, [facility] [address] [id number] [place] [address] Mar, [facility] [address] [id number] [place] [address] Mar, [facility] [address] [id number] [place] [address] Mar, [facility] [address] [id number] [place] [address] Mar, [facility] [address] [id number] [place] [address] Mar, [facility] [address] [id number] [place] [address] Mar, [facility] [id number] [place] [address] Mar, [facility] [address] [id number] [place] [address] Mar, [facility] [address] [id number] [place] [address] Mar, [facility] [address] [id number] [place] [address] Mar, 2012 [facility] [address] [id number] [place] [address] Mar, [facility] [address] [id number] [place] [address] Feb, [facility] [address] [id number] [place] [address] 18 Jan, 2013 [facility] [address] [facility] [id number] [place] [address] 17 Jan, 2012 [facility] [address] [id number] [place] [address] Jan, [facility] [address] [id number] [place] [address] Jan, [facility] [address] [id number] [place] [address] Jan, [facility] [address] [id number] [place] [address] Dec, [facility] [address] [id number] [place] [address] Dec, [facility] [address] [id number] [place] [address] Dec, [facility] [address] [id number] [place] [address] 16 Dec, 2012 [facility] [address] [id number] [place] [address] Dec, [facility] [address] [id number] [place] [address] Dec, [facility] [address] [id number] [place] [address] Dec, [facility] [address] [id number] [place] [address] Dec, [facility] [address] [id number] [place] [address] Nov, [facility] [address] [id number] [place] [address] Nov, [facility] [address] [id number] [place] [address] Nov, [facility] [address] [id number] [place] [address] Nov, [facility] [address] [id number] [place] [address] Nov, [facility] [address] [id number] [place] [address] Nov, [facility] [address] [id number] [place] [address] Oct[facility] [address] [id number] [id number] Oct, [facility] [address] [id number] [id number] Oct, [facility] [address] [id number] [id number] Oct, [facility] [address] [id number] [id number] Oct, [facility] [address] [id number] [place] [address] Oct, [facility] [address] [id number] [place] [address] Oct, [facility] [address] [id number] [place] [address] Oct, [facility] [address] [id number] [place] [address] Oct, [facility] [address] [id number] [place] [address] Oct, [facility] [address] [id number] [place] [address] Oct, [facility] [address] [id number] [place] [address] September, [facility] [address] [facility] [id number] [place] [address] Aug, [facility] [address] [id number] [place] [address] Aug, [facility] [address] [id number] [place] [address] Aug, [facility] [address] [id number] [place] [address] Aug, [facility] [address] [facility] [id number] [place] [address] Jul, [facility] [address] [id number] [place] [address] Jul, [facility] [address] [id number] [place] [address] Jul, [facility] [address] [id number] [place] [address] Jul, [facility] [address] [id number] [place] [address] Jul, [facility] [address] [id number] [place] [address] Jun, [facility] [address] [id number] [place] [address] Jun, [facility] [address] [id number] [place] [address] Jun, [facility] [address] [id number] [place] [address] May, [facility] [address] [id number] [place] [address] May, [facility] [address] [id number] [place] [address] May, [facility] [address] [id number] [place] [address] May, [facility] [address] [id number] [place] [address] May, [facility] [address] [id number] [place] [address] May, [facility] [address] [id number] [place] [address] Apr, [facility] [address] [id number] [place] [address] 18 Apr, 2012 [facility] [address] [id number] [place] [address] Apr, [facility] [address] [id number] [place] [address] Apr, [facility] [address] [id number] [place] [address] Apr, [facility] [address] [id number] [place] [address] Apr, [facility] [address] [id number] [place] [address] Apr, [facility] [address] [id number] [place] [address] Mar, [facility] [address] [id number] [place] [address] Mar, [facility] [address] [id number] [place] [address] Mar, [facility] [address] [id number] [place] [address] Mar, [facility] [address] [id number] [place] [address] 18 Jan, 2012 [facility] [id number] [place] [address] 10 Jan, 2012 [facility] [address] [id number] [place] [address] Jan, [facility] [address] [id number] [place] [address] 06 Jan, [address] [facility] [address] [id number] [place] [id number] Dec, [facility] [id number] [place] [address] Dec, [facility] [address] [id number] [place] [id number] Dec, [facility] [address] [address] Dec, [facility] [address] [address] Dec, [facility] [address] [address] Dec, [facility] [address] [address] Nov, [facility] [address] [address] Nov, [facility] [address] [address] Nov, IMMUNIZATIONS No Known Immunizations SOCIAL HISTORY [...] asthma(493.90) Medical History Near syncope Medical History long-term current use of anticoagulant Medical History Renal [...] Stent placed 08/19/2017 Hospitalization History Syncope- [facility] 12/2017 Hospitalization History heart cath ( 06/23/18-06/25/2018) Hospitalization History heart problem, overnight stay 9
--- OUTSIDE RECORDS SUMMARY | 2019-11-03 19:24 | XMS REPORT ---
Author Author Anca Lucero Doctor Organization [facility] Address Unknown Phone Unavailable Care Team Providers Care Pointer Machine Operator Name Role Phone Migration, Doctor Unavailable Unavailable PROBLEMS Type Condition ICD9-CM Code EJA95-CY Code Onset Dates Condition S tatus SNOMED Code Problem Esophageal reflux K21.9 Active 24 6417342 Problem Dyslipidemia E78.5 12 Oct, 2017 Active 3709 89063 Problem Unspecified hypothyroidism E03.9 Act hernesto 80327121 Problem Generalized anxiety disorder F41.1 Apr, 200 8 Active 15599488 Problem Shortness of breath R06.02 Apr, Active 823806886 Problem Pulmonary embolus I26.99 13 Oct, 2011 Active 38654888 Problem Nonintractable migraine G43.009 08 Oct, 2015 Act hernesto 533177530 Problem Pre-diabetes R73.03 Active 6448105 02 Problem Morbid obesity with BMI of 50.0-59.9, adult Z68.43 Active 088604635 Problem Hypothyroidism E03.9 Active 77946 008 Problem Morbid obesity E66.01 Active 82829 6002 Problem Unspecified sleep apnea G47.30 Active 58373208 Problem Personal history of pulmonary embolism Z86.711 Active 194610951 Problem Osteoarthritis of right knee M17.11 13 May, 201 0 Active 012255365 Problem Renal stones N20.0 Active 5993782 7 Problem Coronary artery disease I25.10 Active 70071104 Problem Hyperlipidemia LDL goal <70 E78.5 Ac tive 27353790 Problem Migraine with aura and without status migrainosu s, not intractable G43.109 Active 3811966 ALLERGIES No Information ENCOUNTERS Encounter Location Date Diagnosis [facility] [address] [id number] [place] [address] 07 Jun, 2019 Personal history of pulmonary embolism Z 86.711 [facility] [address] [facility] [place] [address] 07 Jun, 2019 Personal history of pulmonary embolism Z 86.711 [place] [address] 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 and Dizziness R42 [facility] [address] [facility] [id number] [address] [place] [address] Apr, Non-recurrent acute suppurat hernesto otitis media of both ears without spontaneous rupture of tympanic membranes H66.003 [place] [address] [address] 08 Feb, 2019 Pre-diabetes R73.03 and Hyperlipidemia L DL goal <70 E78.5 [place] [address] [place] [id number] [place] [address] Feb, [place] [address] [address] Feb, [place] [address] [place] [id number] [place] [address] Jan, [place] [address] [address] Jan, [place] [address] [address] 18 Jan, 2019 Encounter for Medicare annual wellness e xam Z00.00 ; Hyperlipidemia LDL goal <70 E78.5 ; Coronary artery disease I25.10 ; Hypothyroidism E03.9 ; Osteoarthritis of right knee M17.11 ; Morbid obesity with BMI of 50.0-59.9, adult Z68.43 and Esophageal reflux K21.9 [place] [address] [address] Jan, Dysuria R30.0 and Hematuria, unspecified type R31.9 [place] [address] [place] [id number] [place] [address] Jan, Hematuria, unspecified type R31.9 [place] [address] [place] [address] [place] [address] Dec, Hematuria, unspecified type R31.9 [facility] [address] [address] Nov, Hematuria, unspecified type R31.[address] [place] [address] Nov, Other microscopic hematuria R31.29 [place] [address] [address] Nov, Vaginal gena B37.3 ; Other microscopi c hematuria R31.29 and Morbid obesity E66.01 [place] [address] [address] Nov, [place] [address] [address] Nov, [facility] [address] [place] [id number] [address] [place] [address] Nov, UTI symptoms R39.9 and Morbi d obesity E66.01 [place] [address] [address] Nov, [place] [address] [address] September, [place] [address] [address] September, [place] [address] [address] Aug, Right foot pain M79.671 and Morbid obesi ty E66.01 [place] [address] [address] Jul, Right foot pain M79.671 and Morbid obesi ty E66.01 [facility] [address] [facility] [id number] [address] [place] [address] Jul, Injury of right foot, initia l encounter S99.921A and Morbid obesity E66.01 [place] [address] [place] [id number] [place] [address] Jul, Recurrent syncope R55 and Morbid obesity E66.01 [place] [address] [place] [address] [place] [address] Jul, [place] [address] [address] Jun, Hematuria, unspecified type R31.9 and BM I 50.0-59.9, adult Z68.43 [place] [address] [place] [id number] [place] [address] 07 Jun, 2018 [place] [address] [place] [address] 04 Jun, 2018 group home current use of ant icoagulant Z79.01 [facility] N [facility] [id number] [address] [place] [address] May, Ankle pain, right M25.571 an d BMI 50.0-59.9, adult Z68.43 [place] [address] [address] May, [place] [address] [address] May, [place] [address] [address] Apr, [place] [address] [address] Apr, [place] [address] [address] Apr, [facility] [address] [facility] [id number] [address] [place] [address] Apr, BMI 50.0-59.9, adult Z68.43 and Weakness R53.1 [place] [address] [address] Apr, [facility] [place] [address] [address] Apr, Dysuria R30.0 ; Hematuria R3 1.9 ; Renal lithiasis N20.0 and BMI 50.0-59.9, adult Z68.43 [place] [address] [address] Apr, [place] [address] [address] Apr, [place] [address] [address] Apr, Hypothyroidism E03.9 [place] [address] [address] Apr, Burning with urination R30.0 ; 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, 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 ; Acute bilateral low back pain without sciatica M54.5 and BMI 50.0-59.9, adult Z68.43 [place] [address] [address] Mar, Hypothyroidism E03.9 [place] [address] [address] Feb, [facility] [place] [address] [address] 15 Jan, 2018 [place] [address] [address] 07 Jan, 2018 Acute non-recurrent maxillary sinusitis J01.00 and BMI 50.0-59.9, adult Z68.43 [facility] [address] [address] 04 Jan, 2018 Congestion of upper respirat ory tract J98.8 and BMI 50.0-59.9, adult Z68.43 [place] [address] [address] Dec, Type 2 diabetes mellitus with diabetic n europathic arthropathy, 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 ; Morbid obesity with BMI of 50.0-59.9, adult Z68.43 ; Hypothyroidism E03.9 ; Coronary artery disease I25.10 ; Hyperlipidemia LDL goal <70 E78.5 ; Right lower quadrant abdominal pain R10.31 and Acute cystitis with hematuria N30.01 [facility] IN [facility] [address] [facility] [id number] [address] [place] [address] Dec, Migraine with aura and witho ut status migrainosus, not intractable G43.109 ; Dehydration symptoms R63.8 and BMI 50.0-59.9, adult Z68.43 [place] [address] [address] Oct, [place] [address] [address] Oct, [place] [address] [address] Oct, [facility] [address] [address] September, [place] [address] [address] September, Type 2 diabetes mellitus with diabetic n europathic arthropathy, 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 ; Hyperlipidemia, unspecified hyperlipidemia type E78.5 ; Personal history of pulmonary embolism Z86.711 ; Coronary artery disease I25.10 and Hypothyroidism E03.9 [facility] [address] [address] September, [place] [address] [address] Aug, Type 2 diabetes mellitus with diabetic [...] without aura and with status migrainosus G43.011 [place] [address] [address] Aug, [place] [address] [address] Aug, [place] [address] [address] Jul, Renal stones N20.0 [facility] [address] [facility] [id number] [address] [place] [address] Jun, Back pain M54.9 ; Kidney sto radha N20.0 and BMI 50.0-59.9, adult Z68.43 [place] [address] [address] Jun, [place] [address] [address] Apr, [place] [address] [address] Apr, [place] [address] [address] Apr, Right foot pain M79.671 ; Acute gout inv olving toe of right foot, 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 and Arthritis M19.90 [place] [address] [address] 06 Apr, 2017 Gastroesophageal reflux disease without esophagitis K21.9 [place] [address] [address] 16 Mar, 2017 Hypothyroidism, unspecified E03.9 [place] [address] [address] 11 Feb, 2017 [place] [address] [address] 25 Jan, 2017 Cervicalgia of puyndgzp-bbabdms-inowt re gion M54.2 and Persistent headaches R51 [place] [address] [address] 20 Jan, 2017 [place] [address] [address] 12 Jan, 2017 Intractable migraine without aura and wi th status migrainosus G43.011 ; Cervical spine pain M54.2 ; Hyperlipidemia, unspecified hyperlipidemia type E78.5 ; Hypothyroidism E03.9 and Metabolic syndrome E88.81 [place] [address] [address] Jan, Hypothyroidism, unspecified E03.9 [place] [address] [address] Dec, Hypothyroidism, unspecified E03.9 [place] [address] [address] Dec, Hypothyroidism E03.9 [place] [address] [address] Nov, Laceration of left great toe w/o foreign body w/o damage to nail, initial encounter S91.112A [facility] [address] [facility] [id number] [address] [place] [address] Oct, Pain in left knee M25.562 an d Arthritis M19.90 [place] [address] [address] Oct, Hypothyroidism, unspecified E03.9 and Hy perlipidemia, unspecified hyperlipidemia type E78.5 [place] [address] [address] Oct, Gastroesophageal reflux disease without esophagitis K21.9 [place] [address] [address] 14 Oct, 2016 Metabolic syndrome E88.81 ; Personal his tory of pulmonary embolism Z86.711 ; Other specified hypothyroidism E03.8 and Hyperlipidemia, unspecified hyperlipidemia type E78.[address] [address] 13 Oct, 2017 Personal history of pulmonary embolism Z 86.711 ; Dysuria R30.0 ; Metabolic syndrome E88.81 ; Other specified hypothyroidism E03.8 ; Hyperlipidemia, unspecified hyperlipidemia type E78.5 and Morbid obesity with BMI of 50.0-59.9, adult Z68.[address] [address] September, [facility] [address] [address] September, Wrist pain, left M25.532 and Acute pain of left knee M25.[address] [address] Jul, Dysuria R30.[address] [address] Jul, Dysuria R30.[address] [address] Jul, Left lower quadrant pain R10.[address] [address] Jul, [address] [address] Jul, Coronary artery disease I25.10 ; Family history of diabetes mellitus Z83.3 ; Morbid obesity with BMI of 50.0-59.9, adult Z68.43 ; Metabolic syndrome E88.81 ; Personal history of pulmonary embolism Z86.711 ; Gastroesophageal reflux disease without esophagitis K21.9 ; Hypothyroidism, unspecified E03.9 ; Hyperlipidemia, unspecified hyperlipidemia type E78.5 and Left lower quadrant pain R10.32 [facility] [place] [id number] [address] [place] [address] Jul, [facility] [address] [address] Jul, Morbid obesity with BMI of 5 0.0-59.9, adult Z68.43 [facility] [address] [address] Jul, Generalized abdominal pain R 10.84 [facility] [address] [address] 02 Jun, 2016 Muscle strain of right upper back, initial encounter S29.012A [facility] [address] [address] May, Foreign body (FB) in soft ti ssue M79.[address] [address] Mar, Hypothyroidism, unspecified E03.9 and Ar thritis M19.[address] [address] Feb, Coronary artery disease I25.10 ; Morbid obesity with BMI of 50.0-59.9, adult Z68.43 ; Metabolic syndrome E88.81 ; Gastroesophageal reflux disease without esophagitis K21.9 ; Hypothyroidism, unspecified E03.9 ; Personal history of pulmonary embolism Z86.711 and Hyperlipidemia, unspecified hyperlipidemia type E78.[address] [address] Feb, [facility] [address] [address] Jan, Acute right-sided thoracic b ack pain M54.[address] [address] Jan, Acute pain of left knee M25.[address] [address] Dec, Dysuria R30.0 ; Metabolic syndrome E88.8 1 ; Acute pain of left knee M25.562 ; Acute cystitis with hematuria N30.01 and Acute left eye pain H57.[address] [address] Dec, [place] [address] [address] Dec, [place] [address] [address] Dec, Hypothyroidism, unspecified E03.9 [place] [address] [address] Dec, [place] [address] [address] Nov, Peripheral edema R60.9 and Acute pain of left knee M25.562 [facility] [place] [address] [place] [id number] [address] [place] [address] September, [place] [address] [address] September, Metabolic syndrome E88.81 and Allergy, s ubsequent encounter T78.40XD [facility] [place] [address] [facility] [id number] [address] [place] [address] September, Muscle strain T14.8 [place] [address] [address] Aug, Chest pressure R07.89 ; Metabolic syndro me E88.81 ; Morbid obesity with BMI of 50.0-59.9, adult Z68.43 ; Esophageal reflux 530.81 and Shortness of breath R06.02 [place] [address] [address] Aug, [place] [address] [address] Aug, [place] [address] [address] Aug, Hypothyroidism, unspecified E03.9 [place] [address] [address] Aug, Routine health maintenance Z00.00 [facility] [place] [address] [facility] [id number] [address] [place] [address] Aug, [place] [address] [address] 31 Jul, 2015 Routine health maintenance Z00.00 ; Fami ly history of diabetes mellitus Z83.3 ; Family history of cancer Z80.9 and Morbid obesity with BMI of 50.0-59.9, adult Z68.43 [facility] [place] [address] [address] [place] [id number] [address] [place] [address] 28 Jul, 2015 Allergic rhinitis J30.9 and Postnasal drip R09.[address] [address] 18 Jul, 2015 Influenza J11.1 [facility] [place] [address] [address] Jul, Dysuria R30.0 [place] [address] [address] Apr, [address] [address] Mar, Acute upper respiratory infection, unspe cified J06.9 and Hypothyroidism E03.[address] [address] Mar, [place] [address] [address] Feb, Coronary artery disease I25.10 [place] [address] [address] Feb, Left foot pain M79.[address] [address] Jan, UTI (urinary tract infection) 599.[address] [address] Jan, Urinary tract infection, site not specif ied 599.0 [facility] [address] [place] [id number] [place] [address] Jan, Urinary tract infection, site not specif ied 599.0 [facility] [address] [address] Jan, [facility] [address] [address] Dec, Headache 784.0 [facility] [address] [address] Dec, Urinary tract infection, site not specif ied 599.0 [place] [address] [address] Dec, Urinary tract infection, site not specif ied 599.0 [place] [address] [address] Dec, Urinary tract infection, site not specif ied 599.0 [place] [address] [address] Nov, Unspecified sleep apnea 780.57 ; Encount er for long-term (current) use of anticoagulants V58.61 ; Routine general medical examination at health care facility V70.0 and Arthritis of both knees 716.96 [place] [address] [address] September, Cat bite of hand 882.0 and Rectal bleedi ng 569.3 [facility] [address] [place] [id number] [place] [address] Aug, [facility] [address] [address] Aug, [facility] [address] [address] Jul, [facility] [address] [address] Jul, [facility] [address] [place] [address] Jul, [facility] [address] [id number] [place] [address] Jul, [facility] [address] [id number] [place] [address] Jul, [facility] [address] [id number] [place] [address] Jul, [facility] [address] [id number] [place] [address] Jul, [facility] [address] [id number] [place] [address] Jul, [facility] [address] [id number] [place] [address] May, [facility] [address] [id number] [place] [address] May, [facility] [address] [id number] [place] [address] May, [facility] [address] [id number] [place] [address] May, [facility] [address] [id number] [place] [address] May, [facility] [address] [id number] [place] [address] May, [facility] [address] [id number] [place] [address] May, [facility] [address] [id number] [place] [address] Mar, [facility] [address] [id number] [place] [address] Mar, [facility] [address] [id number] [place] [address] Jan, [facility] [address] [id number] [place] [address] Jan, [facility] [address] [id number] [place] [address] 08 Jan, 2013 [facility] [address] [facility] [id number] [place] [address] Jan, 2013 [facility] [address] [facility] [id number] [place] [address] Jan, 2013 [facility] [address] [id number] [place] [address] Jan, 2013 [facility] [address] [facility] [id number] [place] [address] Dec, [facility] [address] [id number] [place] [address] Dec, [facility] [address] [id number] [place] [address] Dec, [facility] [address] [id number] [place] [address] Dec, [facility] [address] [id number] [place] [address] Dec, [facility] [address] [id number] [place] [address] Dec, [facility] [address] [id number] [place] [address] Dec, [facility] [address] [id number] [place] [address] Dec, [facility] [address] [id number] [place] [address] Dec, [facility] [address] [facility] [id number] [place] [address] Dec, [facility] [address] [id number] [place] [address] Nov, [facility] [address] [id number] [place] [address] Nov, [facility] [address] [id number] [place] [address] September, [facility] [address] [facility] [id number] [place] [address] September, [facility] [address] [facility] [id number] [facility] [place] [address] September, [facility] [address] [id number] [place] [address] September, [facility] [address] [id number] [place] [address] Aug, [facility] [address] [facility] [id number] [place] [address] Aug, [facility] [address] [id number] [place] [address] Aug, [facility] [address] [id number] [place] [address] Aug, [facility] [address] [id number] [place] [address] Aug, [facility] [address] [id number] [place] [address] Aug, [facility] [place] [facility] [address] [id number] [place] [address] Aug, [facility] [place] [facility] [address] [id number] [place] [address] Aug, [facility] [place] [facility] [address] [id number] [place] [address] Aug, [facility] [place] [facility] [address] [facility] [id number] [place] [address] Aug, [facility] [place] [facility] [address] [id number] [place] [address] Aug, [facility] [place] [facility] [address] [id number] [place] [address] Aug, [facility] [place] [facility] [address] [id number] [place] [address] Jul, [facility] [place] [facility] [address] [id number] [place] [address] Jul, [facility] [place] [facility] [address] [facility] [id number] [place] [address] Jul, [facility] [place] [facility] [address] [id number] [place] [address] Jul, [facility] [place] [facility] [address] [id number] [place] [address] Jul, [facility] [place] [facility] [address] [id number] [place] [address] Jul, [facility] [place] [facility] [address] [id number] [place] [address] Jul, [facility] [place] [facility] [address] [id number] [place] [address] Jul, [facility] [place] [facility] [address] [id number] [place] [address] Jul, [facility] [place] [facility] [address] [id number] [place] [address] Jul, [facility] [place] [facility] [address] [id number] [place] [address] Jun, [facility] [place] [facility] [address] [id number] [place] [address] Jun, [facility] [place] [facility] [address] [id number] [place] [address] Jun, [facility] [place] [facility] [address] [id number] [place] [address] Jun, [facility] [place] [facility] [address] [id number] [place] [address] Jun, [facility] [place] [facility] [address] [id number] [place] [address] Jun, [facility] [place] [facility] [address] [id number] [place] [address] Jun, [facility] [place] [facility] [address] [id number] [place] [address] Jun, [facility] [place] [facility] [address] [facility] [id number] [place] [address] Jun, [facility] [address] [facility] [id number] [facility] [place] [address] Jun, [facility] [address] [facility] [id number] [place] [address] Jun, [facility] [address] [facility] [id number] [place] [address] Jun, [facility] [address] [facility] [id number] [place] [address] May, [facility] [address] [id number] [place] [address] May, [facility] [address] [id number] [place] [address] May, [facility] [address] [id number] [place] [address] May, [facility] [address] [id number] [place] [address] May, [facility] [address] [id number] [place] [address] May, [facility] [address] [id number] [place] [address] May, [facility] [address] [id number] [place] [address] May, [facility] [address] [id number] [place] [address] May, [facility] [address] [id number] [place] [address] May, [facility] [address] [id number] [place] [address] May, [facility] [address] [id number] [place] [address] May, [facility] [address] [id number] [place] [address] May, [facility] [address] [id number] [place] [address] May, [facility] [address] [id number] [place] [address] May, [facility] [address] [id number] [place] [address] Apr, [facility] [address] [id number] [place] [address] Apr, [facility] [address] [id number] [place] [address] Apr, [facility] [address] [id number] [place] [address] Apr, [facility] [address] [id number] [place] [address] Mar, [facility] [address] [id number] [place] [address] Mar, [facility] [address] [id number] [place] [address] Mar, [facility] [address] [id number] [place] [address] Mar, [facility] [address] [id number] [place] [address] Mar, [facility] [address] [id number] [place] [address] Mar, [facility] [address] [id number] [place] [address] Mar, [facility] [id number] [place] [address] Mar, [facility] [address] [id number] [place] [address] Mar, [facility] [address] [id number] [place] [address] Mar, [facility] [address] [id number] [place] [address] Mar, 2012 [facility] [address] [id number] [place] [address] Mar, [facility] [address] [id number] [place] [address] Feb, [facility] [address] [id number] [place] [address] 18 Jan, 2013 [facility] [address] [facility] [id number] [place] [address] 17 Jan, 2012 [facility] [address] [id number] [place] [address] Jan, [facility] [address] [id number] [place] [address] Jan, [facility] [address] [id number] [place] [address] Jan, [facility] [address] [id number] [place] [address] Dec, [facility] [address] [id number] [place] [address] Dec, [facility] [address] [id number] [place] [address] Dec, [facility] [address] [id number] [place] [address] 16 Dec, 2012 [facility] [address] [id number] [place] [address] Dec, [facility] [address] [id number] [place] [address] Dec, [facility] [address] [id number] [place] [address] Dec, [facility] [address] [id number] [place] [address] Dec, [facility] [address] [id number] [place] [address] Nov, [facility] [address] [id number] [place] [address] Nov, [facility] [address] [id number] [place] [address] Nov, [facility] [address] [id number] [place] [address] Nov, [facility] [address] [id number] [place] [address] Nov, [facility] [address] [id number] [place] [address] Nov, [facility] [address] [id number] [place] [address] Oct, [facility] [address] [id number] [id number] Oct, [facility] [address] [id number] [id number] Oct, [facility] [address] [id number] [id number] Oct, [facility] [address] [id number] [id number] Oct, [facility] [address] [id number] [place] [address] Oct, [facility] [address] [id number] [place] [address] Oct, [facility] [address] [id number] [place] [address] Oct, [facility] [address] [id number] [place] [address] Oct, [facility] [address] [id number] [place] [address] Oct, [facility] [address] [id number] [place] [address] Oct, [facility] [address] [id number] [place] [address] September, [facility] [address] [facility] [id number] [place] [address] Aug, [facility] [address] [id number] [place] [address] Aug, [facility] [address] [id number] [place] [address] Aug, [facility] [address] [id number] [place] [address] Aug, [facility] [address] [facility] [id number] [place] [address] Jul, [facility] [address] [id number] [place] [address] Jul, [facility] [address] [id number] [place] [address] Jul, [facility] [address] [id number] [place] [address] Jul, [facility] [address] [id number] [place] [address] Jul, [facility] [address] [id number] [place] [address] Jun, [facility] [address] [id number] [place] [address] Jun, [facility] [address] [id number] [place] [address] Jun, [facility] [address] [id number] [place] [address] May, [facility] [address] [id number] [place] [address] May, [facility] [address] [id number] [place] [address] May, [facility] [address] [id number] [place] [address] May, [facility] [address] [id number] [place] [address] May, [facility] [address] [id number] [place] [address] May, [facility] [address] [id number] [place] [address] Apr, [facility] [address] [id number] [place] [address] 18 Apr, 2012 [facility] [address] [id number] [place] [address] Apr, [facility] [address] [id number] [place] [address] Apr, [facility] [address] [id number] [place] [address] Apr, [facility] [address] [id number] [place] [address] Apr, [facility] [address] [id number] [place] [address] Apr, [facility] [address] [id number] [place] [address] Mar, [facility] [address] [id number] [place] [address] Mar, [facility] [address] [id number] [place] [address] Mar, [facility] [address] [id number] [place] [address] Mar, [facility] [address] [id number] [place] [address] 18 Jan, 2012 [facility] [id number] [place] [address] 10 Jan, 2012 [facility] [address] [id number] [place] [address] Jan, [facility] [address] [id number] [place] [address] 06 Jan, [address] [facility] [address] [id number] [place] [id number] Dec, [facility] [id number] [place] [address] Dec, [facility] [address] [id number] [place] [id number] Dec, [facility] [id number] [place] [address] Dec, [facility] [address] [address] Dec, [facility] [address] [address] Dec, [facility] [address] [address] Nov, [facility] [address] [address] Nov, [facility] [id number] [place] [address] Nov, IMMUNIZATIONS No Known Immunizations SOCIAL HISTORY Never Assessed REASON FOR VISIT PLAN OF CARE VITAL SIGNS MEDICATIONS Unknown Medications RESULTS No Results PROCEDURES Procedure Date Ordered Result Body Site PROTHROMBIN TIME Jun 23, 2013 ASSAY THYROID STIM HORMONE Jun 23, 2013 LIPID PANEL Jun 23, 2013 VENIPUNCT, ROUTINE* Jun 23, 2013 INSTRUCTIONS MEDICATIONS ADMINISTERED No Known [...]
--- OUTSIDE RECORDS SUMMARY | 2019-11-03 19:24 | XMS REPORT ---
Author Author Anca Lucero Doctor Organization [facility] Address Unknown Phone Unavailable Care Team Providers Care Space Physicist Name Role Phone Migration, Doctor Unavailable Unavailable PROBLEMS Type Condition ICD9-CM Code OYY71-TU Code Onset Dates Condition S tatus SNOMED Code Problem Esophageal reflux K21.9 Active 24 0981423 Problem Dyslipidemia E78.5 12 Oct, 2017 Active 3709 19901 Problem Unspecified hypothyroidism E03.9 Act hernesto 58124318 Problem Generalized anxiety disorder F41.1 Apr, 200 8 Active 73333336 Problem Shortness of breath R06.02 Apr, Active 389934928 Problem Pulmonary embolus I26.99 13 Oct, 2011 Active 74687319 Problem Nonintractable migraine G43.009 08 Oct, 2015 Act hernesto 957291529 Problem Pre-diabetes R73.03 Active 2724350 02 Problem Morbid obesity with BMI of 50.0-59.9, adult Z68.43 Active 657737325 Problem Hypothyroidism E03.9 Active 17571 008 Problem Morbid obesity E66.01 Active 84238 6002 Problem Unspecified sleep apnea G47.30 Active 56954235 Problem Personal history of pulmonary embolism Z86.711 Active 692502276 Problem Osteoarthritis of right knee M17.11 13 May, 201 0 Active 275148938 Problem Renal stones N20.0 Active 2383276 7 Problem Coronary artery disease I25.10 Active 18407016 Problem Hyperlipidemia LDL goal <70 E78.5 Ac tive 61132116 Problem Migraine with aura and without status migrainosu s, not intractable G43.109 Active 9352480 ALLERGIES No Information ENCOUNTERS Encounter Location Date Diagnosis [facility] [address] [id number] [place] [address] 07 Jun, 2019 Personal history of pulmonary embolism Z 86.711 [facility] [address] [id number] [place] [address] 07 Jun, 2019 Personal history of pulmonary embolism Z 86.711 [place] [id number] [id number] [place] [address] May, [facility] [address] [place] [address] May, 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 [id number] [address] [place] [address] Apr, Non-recurrent acute suppurat hernesto otitis media of both ears without spontaneous rupture of tympanic membranes H66.003 [place] [address] [address] 08 Feb, 2019 Pre-diabetes R73.03 and Hyperlipidemia L DL goal <70 E78.5 [place] [address] [place] [id number] [place] [address] Feb, [place] [address] [address] Feb, [place] [address] [place] [id number] [place] [address] Jan, [place] [address] [address] Jan, [place] [address] [address] 18 Jan, 2019 Encounter for Medicare annual wellness e xam Z00.00 ; Hyperlipidemia LDL goal <70 E78.5 ; Coronary artery disease I25.10 ; Hypothyroidism E03.9 ; Osteoarthritis of right knee M17.11 ; Morbid obesity with BMI of 50.0-59.9, adult Z68.43 and Esophageal reflux K21.9 [place] [address] [address] Jan, Dysuria R30.0 and Hematuria, unspecified type R31.9 [place] [address] [place] [id number] [place] [address] Jan, Hematuria, unspecified type R31.9 [place] [address] [place] [address] [place] [address] Dec, Hematuria, unspecified type R31.9 [facility] [address] [address] Nov, Hematuria, unspecified type R31.[address] [place] [address] Nov, Other microscopic hematuria R31.29 [place] [address] [address] Nov, Vaginal gena B37.3 ; Other microscopi c hematuria R31.29 and Morbid obesity E66.01 [place] [address] [address] Nov, [place] [address] [address] Nov, [facility] [address] [place] [id number] [address] [place] [address] Nov, UTI symptoms R39.9 and Morbi d obesity E66.01 [place] [address] [address] Nov, [place] [address] [address] September, [place] [address] [address] September, [place] [address] [address] Aug, Right foot pain M79.671 and Morbid obesi ty E66.01 [place] [address] [address] Jul, Right foot pain M79.671 and Morbid obesi ty E66.01 [facility] [address] [facility] [id number] [address] [place] [address] Jul, Injury of right foot, initia l encounter S99.921A and Morbid obesity E66.01 [place] [address] [place] [id number] [place] [address] Jul, Recurrent syncope R55 and Morbid obesity E66.01 [place] [address] [place] [id number] [place] [address] Jul, [place] [address] [address] Jun, Hematuria, unspecified type R31.9 and BM I 50.0-59.9, adult Z68.43 [place] [address] [place] [id number] [place] [address] 07 Jun, 2018 [place] [address] [place] [address] 04 Jun, 2018 alf current use of ant icoagulant Z79.01 [facility] N [facility] [id number] [address] [place] [address] May, Ankle pain, right M25.571 an d BMI 50.0-59.9, adult Z68.43 [place] [address] [address] May, [place] [address] [address] May, [place] [address] [address] Apr, [place] [address] [address] Apr, [place] [address] [address] Apr, [facility] [address] [facility] [id number] [address] [place] [address] Apr, BMI 50.0-59.9, adult Z68.43 and Weakness R53.1 [place] [address] [address] Apr, [facility] [place] [address] [address] Apr, Dysuria R30.0 ; Hematuria R3 1.9 ; Renal lithiasis N20.0 and BMI 50.0-59.9, adult Z68.43 [place] [address] [address] Apr, [place] [address] [address] Apr, [place] [address] [address] Apr, Hypothyroidism E03.9 [place] [address] [address] Apr, Burning with urination R30.0 ; 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, 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 ; Acute bilateral low back pain without sciatica M54.5 and BMI 50.0-59.9, adult Z68.43 [place] [address] [address] Mar, Hypothyroidism E03.9 [place] [address] [address] Feb, [facility] [place] [address] [address] 15 Jan, 2018 [place] [address] [address] 07 Jan, 2018 Acute non-recurrent maxillary sinusitis J01.00 and BMI 50.0-59.9, adult Z68.43 [facility] [address] [address] 04 Jan, 2018 Congestion of upper respirat ory tract J98.8 and BMI 50.0-59.9, adult Z68.43 [place] [address] [address] Dec, Type 2 diabetes mellitus with diabetic n europathic arthropathy, 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 ; Morbid obesity with BMI of 50.0-59.9, adult Z68.43 ; Hypothyroidism E03.9 ; Coronary artery disease I25.10 ; Hyperlipidemia LDL goal <70 E78.5 ; Right lower quadrant abdominal pain R10.31 and Acute cystitis with hematuria N30.01 [facility] [address] [facility] [id number] [address] [place] [address] Dec, Migraine with aura and witho ut status migrainosus, not intractable G43.109 ; Dehydration symptoms R63.8 and BMI 50.0-59.9, adult Z68.43 [place] [address] [address] Oct, [place] [address] [address] Oct, [place] [address] [address] Oct, [facility] [address] [address] September, [place] [address] [address] September, Type 2 diabetes mellitus with diabetic n europathic arthropathy, 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 ; Hyperlipidemia, unspecified hyperlipidemia type E78.5 ; Personal history of pulmonary embolism Z86.711 ; Coronary artery disease I25.10 and Hypothyroidism E03.9 [facility] [address] [address] September, [place] [address] [address] Aug, Type 2 diabetes mellitus with diabetic [...] without aura and with status migrainosus G43.011 [place] [address] [address] Aug, [place] [address] [address] Aug, [place] [address] [address] Jul, Renal stones N20.0 [facility] [address] [facility] [id number] [address] [place] [address] Jun, Back pain M54.9 ; Kidney sto radha N20.0 and BMI 50.0-59.9, adult Z68.43 [place] [address] [address] Jun, [place] [address] [address] Apr, [place] [address] [address] Apr, [place] [address] [address] Apr, Right foot pain M79.671 ; Acute gout inv olving toe of right foot, 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 and Arthritis M19.90 [place] [address] [address] 06 Apr, 2017 Gastroesophageal reflux disease without esophagitis K21.9 [place] [address] [address] 16 Mar, 2017 Hypothyroidism, unspecified E03.9 [place] [address] [address] 11 Feb, 2017 [place] [address] [address] 25 Jan, 2017 Cervicalgia of bhmddczb-snqrxzt-hyssj re gion M54.2 and Persistent headaches R51 [place] [address] [address] 20 Jan, 2017 [place] [address] [address] 12 Jan, 2017 Intractable migraine without aura and wi th status migrainosus G43.011 ; Cervical spine pain M54.2 ; Hyperlipidemia, unspecified hyperlipidemia type E78.5 ; Hypothyroidism E03.9 and Metabolic syndrome E88.81 [place] [address] [address] Jan, Hypothyroidism, unspecified E03.9 [place] [address] [address] Dec, Hypothyroidism, unspecified E03.9 [place] [address] [address] Dec, Hypothyroidism E03.9 [place] [address] [address] Nov, Laceration of left great toe w/o foreign body w/o damage to nail, initial encounter S91.112A [facility] [address] [facility] [id number] [address] [place] [address] Oct, Pain in left knee M25.562 an d Arthritis M19.90 [place] [address] [address] Oct, Hypothyroidism, unspecified E03.9 and Hy perlipidemia, unspecified hyperlipidemia type E78.5 [place] [address] [address] Oct, Gastroesophageal reflux disease without esophagitis K21.9 [place] [address] [address] 14 Oct, 2016 Metabolic syndrome E88.81 ; Personal his tory of pulmonary embolism Z86.711 ; Other specified hypothyroidism E03.8 and Hyperlipidemia, unspecified hyperlipidemia type E78.[address] [address] 13 Oct, 2017 Personal history of pulmonary embolism Z 86.711 ; Dysuria R30.0 ; Metabolic syndrome E88.81 ; Other specified hypothyroidism E03.8 ; Hyperlipidemia, unspecified hyperlipidemia type E78.5 and Morbid obesity with BMI of 50.0-59.9, adult Z68.[address] [address] September, [facility] [address] [address] September, Wrist pain, left M25.532 and Acute pain of left knee M25.[address] [address] Jul, Dysuria R30.[address] [address] Jul, Dysuria R30.[address] [address] Jul, Left lower quadrant pain R10.[address] [address] Jul, [address] [address] Jul, Coronary artery disease I25.10 ; Family history of diabetes mellitus Z83.3 ; Morbid obesity with BMI of 50.0-59.9, adult Z68.43 ; Metabolic syndrome E88.81 ; Personal history of pulmonary embolism Z86.711 ; Gastroesophageal reflux disease without esophagitis K21.9 ; Hypothyroidism, unspecified E03.9 ; Hyperlipidemia, unspecified hyperlipidemia type E78.5 and Left lower quadrant pain R10.32 [facility] [place] [id number] [address] [place] [address] Jul, [facility] [address] [address] Jul, Morbid obesity with BMI of 5 0.0-59.9, adult Z68.43 [facility] [address] [address] Jul, Generalized abdominal pain R 10.84 [facility] [address] [address] 02 Jun, 2016 Muscle strain of right upper back, initial encounter S29.012A [facility] [address] [address] May, Foreign body (FB) in soft ti ssue M79.[address] [address] Mar, Hypothyroidism, unspecified E03.9 and Ar thritis M19.[address] [address] Feb, Coronary artery disease I25.10 ; Morbid obesity with BMI of 50.0-59.9, adult Z68.43 ; Metabolic syndrome E88.81 ; Gastroesophageal reflux disease without esophagitis K21.9 ; Hypothyroidism, unspecified E03.9 ; Personal history of pulmonary embolism Z86.711 and Hyperlipidemia, unspecified hyperlipidemia type E78.[address] [address] Feb, [facility] [address] [address] Jan, Acute right-sided thoracic b ack pain M54.[address] [address] Jan, Acute pain of left knee M25.[address] [address] Dec, Dysuria R30.0 ; Metabolic syndrome E88.8 1 ; Acute pain of left knee M25.562 ; Acute cystitis with hematuria N30.01 and Acute left eye pain H57.[address] [address] Dec, [place] [address] [address] Dec, [place] [address] [address] Dec, Hypothyroidism, unspecified E03.9 [place] [address] [address] Dec, [place] [address] [address] Nov, Peripheral edema R60.9 and Acute pain of left knee M25.562 [facility] [place] [address] [address] [place] [id number] [place] [address] September, [place] [address] [address] September, Metabolic syndrome E88.81 and Allergy, s ubsequent encounter T78.40XD [facility] [place] [address] [facility] [id number] [address] [place] [address] September, Muscle strain T14.8 [place] [address] [address] Aug, Chest pressure R07.89 ; Metabolic syndro me E88.81 ; Morbid obesity with BMI of 50.0-59.9, adult Z68.43 ; Esophageal reflux 530.81 and Shortness of breath R06.02 [place] [address] [address] Aug, [place] [address] [address] Aug, [place] [address] [address] Aug, Hypothyroidism, unspecified E03.9 [place] [address] [address] Aug, Routine health maintenance Z00.00 [facility] [place] [address] [facility] [id number] [address] [place] [address] Aug, [place] [address] [address] 31 Jul, 2015 Routine health maintenance Z00.00 ; Fami ly history of diabetes mellitus Z83.3 ; Family history of cancer Z80.9 and Morbid obesity with BMI of 50.0-59.9, adult Z68.43 [facility] [place] [address] [address] [place] [id number] [place] [address] 28 Jul, 2015 Allergic rhinitis J30.9 and Postnasal drip R09.[address] [address] 18 Jul, 2015 Influenza J11.1 [facility] [address] [address] Jul, Dysuria R30.0 [place] [address] [address] Apr, [address] [address] Mar, Acute upper respiratory infection, unspe cified J06.9 and Hypothyroidism E03.[address] [address] Mar, [place] [address] [address] Feb, Coronary artery disease I25.10 [place] [address] [address] Feb, Left foot pain M79.[address] [address] Jan, UTI (urinary tract infection) 599.[address] [address] Jan, Urinary tract infection, site not specif ied 599.0 [facility] [address] [place] [id number] [place] [address] Jan, Urinary tract infection, site not specif ied 599.0 [facility] [address] [address] Jan, [facility] [address] [address] Dec, Headache 784.0 [facility] [address] [address] Dec, Urinary tract infection, site not specif ied 599.0 [place] [address] [address] Dec, Urinary tract infection, site not specif ied 599.0 [place] [address] [address] Dec, Urinary tract infection, site not specif ied 599.0 [place] [address] [address] Nov, Unspecified sleep apnea 780.57 ; Encount er for long-term (current) use of anticoagulants V58.61 ; Routine general medical examination at health care facility V70.0 and Arthritis of both knees 716.96 [place] [address] [address] September, Cat bite of hand 882.0 and Rectal bleedi ng 569.3 [facility] [address] [place] [id number] [place] [address] Aug, [facility] [address] [address] Aug, [facility] [address] [address] Jul, [facility] [address] [address] Jul, [facility] [address] [place] [address] Jul, [facility] [address] [id number] [place] [address] Jul, [facility] [address] [id number] [place] [address] Jul, [facility] [address] [id number] [place] [address] Jul, [facility] [address] [id number] [place] [address] Jul, [facility] [address] [id number] [place] [address] Jul, [facility] [address] [id number] [place] [address] May, [facility] [address] [id number] [place] [address] May, [facility] [address] [id number] [place] [address] May, [facility] [address] [id number] [place] [address] May, [facility] [address] [id number] [place] [address] May, [facility] [address] [id number] [place] [address] May, [facility] [address] [id number] [place] [address] May, [facility] [address] [id number] [place] [address] Mar, [facility] [address] [id number] [place] [address] Mar, [facility] [address] [id number] [place] [address] Jan, [facility] [address] [id number] [place] [address] Jan, [facility] [address] [id number] [place] [address] 08 Jan, 2013 [facility] [address] [facility] [id number] [place] [address] Jan, 2013 [facility] [address] [facility] [id number] [place] [address] Jan, 2013 [facility] [address] [id number] [place] [address] Jan, 2013 [facility] [address] [facility] [id number] [place] [address] Dec, [facility] [address] [id number] [place] [address] Dec, [facility] [address] [id number] [place] [address] Dec, [facility] [address] [id number] [place] [address] Dec, [facility] [address] [id number] [place] [address] Dec, [facility] [address] [id number] [place] [address] Dec, [facility] [address] [id number] [place] [address] Dec, [facility] [address] [id number] [place] [address] Dec, [facility] [address] [id number] [place] [address] Dec, [facility] [address] [facility] [id number] [place] [address] Dec, [facility] [address] [id number] [place] [address] Nov, [facility] [address] [id number] [place] [address] Nov, [facility] [address] [id number] [place] [address] September, [facility] [address] [facility] [id number] [place] [address] September, [facility] [address] [facility] [id number] [facility] [address] September, [facility] [address] [id number] [place] [address] September, [facility] [address] [id number] [place] [address] Aug, [facility] [address] [facility] [id number] [place] [address] Aug, [facility] [place] [facility] [address] [id number] [place] [address] Aug, [facility] [place] [facility] [address] [id number] [place] [address] Aug, [facility] [place] [facility] [address] [id number] [place] [address] Aug, [facility] [place] [facility] [address] [id number] [place] [address] Aug, [facility] [place] [facility] [address] [id number] [place] [address] Aug, [facility] [place] [facility] [address] [id number] [place] [address] Aug, [facility] [place] [facility] [address] [id number] [place] [address] Aug, [facility] [place] [facility] [address] [facility] [id number] [place] [address] Aug, [facility] [place] [facility] [address] [id number] [place] [address] Aug, [facility] [place] [facility] [address] [id number] [place] [address] Aug, [facility] [place] [facility] [address] [id number] [place] [address] Jul, [facility] [place] [facility] [address] [id number] [place] [address] Jul, [facility] [place] [facility] [address] [facility] [id number] [place] [address] Jul, [facility] [place] [facility] [address] [id number] [place] [address] Jul, [facility] [place] [facility] [address] [id number] [place] [address] Jul, [facility] [place] [facility] [address] [id number] [place] [address] Jul, [facility] [place] [facility] [address] [id number] [place] [address] Jul, [facility] [place] [facility] [address] [id number] [place] [address] Jul, [facility] [place] [facility] [address] [id number] [place] [address] Jul, [facility] [place] [facility] [address] [id number] [place] [address] Jul, [facility] [place] [facility] [address] [id number] [place] [address] Jun, [facility] [place] [facility] [address] [id number] [place] [address] Jun, [facility] [place] [facility] [address] [id number] [place] [address] Jun, [facility] [place] [facility] [address] [id number] [place] [address] Jun, [facility] [place] [facility] [address] [id number] [place] [address] Jun, [facility] [address] [id number] [place] [address] Jun, [facility] [address] [id number] [place] [address] Jun, [facility] [address] [id number] [place] [address] Jun, [facility] [address] [facility] [id number] [place] [address] Jun, [facility] [address] [facility] [id number] [facility] [place] [address] Jun, [facility] [address] [facility] [id number] [place] [address] Jun, [facility] [address] [facility] [id number] [place] [address] Jun, [facility] [address] [facility] [id number] [place] [address] May, [facility] [address] [id number] [place] [address] May, [facility] [address] [id number] [place] [address] May, [facility] [address] [id number] [place] [address] May, [facility] [address] [id number] [place] [address] May, [facility] [address] [id number] [place] [address] May, [facility] [address] [id number] [place] [address] May, [facility] [address] [id number] [place] [address] May, [facility] [address] [id number] [place] [address] May, [facility] [address] [id number] [place] [address] May, [facility] [address] [id number] [place] [address] May, [facility] [address] [id number] [place] [address] May, [facility] [address] [id number] [place] [address] May, [facility] [address] [id number] [place] [address] May, [facility] [address] [id number] [place] [address] May, [facility] [address] [id number] [place] [address] Apr, [facility] [address] [id number] [place] [address] Apr, [facility] [address] [id number] [place] [address] Apr, [facility] [address] [id number] [place] [address] Apr, [facility] [address] [id number] [place] [address] Mar, [facility] [address] [id number] [place] [address] Mar, [facility] [address] [id number] [place] [address] Mar, [facility] [address] [id number] [place] [address] Mar, [facility] [address] [id number] [place] [address] Mar, [facility] [address] [id number] [place] [address] Mar, [facility] [address] [id number] [place] [address] Mar, [facility] [address] [id number] [place] [address] Mar, [facility] [address] [id number] [place] [address] Mar, [facility] [address] [id number] [place] [address] Mar, [facility] [address] [id number] [place] [address] Mar, 2012 [facility] [address] [id number] [place] [address] Mar, [facility] [address] [id number] [place] [address] Feb, [facility] [address] [id number] [place] [address] 18 Jan, 2013 [facility] [address] [facility] [id number] [place] [address] 17 Jan, 2012 [facility] [address] [id number] [place] [address] Jan, [facility] [address] [id number] [place] [address] Jan, [facility] [address] [id number] [place] [address] Jan, [facility] [address] [id number] [place] [address] Dec, [facility] [address] [id number] [place] [address] Dec, [facility] [address] [id number] [place] [address] Dec, [facility] [address] [id number] [place] [address] 16 Dec, 2012 [facility] [address] [id number] [place] [address] Dec, [facility] [address] [id number] [place] [address] Dec, [facility] [address] [id number] [place] [address] Dec, [facility] [address] [id number] [place] [address] Dec, [facility] [address] [id number] [place] [address] Nov, [facility] [address] [id number] [place] [address] Nov, [facility] [address] [id number] [place] [address] Nov, [facility] [address] [id number] [place] [address] Nov, [facility] [address] [id number] [place] [address] Nov, [facility] [address] [id number] [place] [address] Nov, [facility] [address] [id number] [place] [address] Oct, [facility] [address] [id number] [id number] Oct, [facility] [address] [facility] [id number] Oct, [facility] [address] [id number] [id number] Oct[facility] [address] [facility] [id number] Oct, [facility] [address] [id number] [place] [address] Oct, [facility] [address] [id number] [place] [address] Oct, [facility] [address] [id number] [place] [address] Oct, [facility] [address] [id number] [place] [address] Oct, [facility] [address] [id number] [place] [address] Oct, [facility] [address] [id number] [place] [address] Oct, [facility] [address] [id number] [place] [address] September, [facility] [address] [facility] [id number] [place] [address] Aug, [facility] [address] [id number] [place] [address] Aug, [facility] [address] [id number] [place] [address] Aug, [facility] [address] [id number] [place] [address] Aug, [facility] [address] [facility] [id number] [place] [address] Jul, [facility] [address] [id number] [place] [address] Jul, [facility] [address] [id number] [place] [address] Jul, [facility] [address] [id number] [place] [address] Jul, [facility] [address] [id number] [place] [address] Jul, [facility] [address] [id number] [place] [address] Jun, [facility] [address] [id number] [place] [address] Jun, [facility] [address] [id number] [place] [address] Jun, [facility] [address] [id number] [place] [address] May, [facility] [address] [id number] [place] [address] May, [facility] [address] [id number] [place] [address] May, [facility] [address] [id number] [place] [address] May, [facility] [address] [id number] [place] [address] May, [facility] [address] [id number] [place] [address] May, [facility] [address] [id number] [place] [address] Apr, [facility] [address] [id number] [place] [address] 18 Apr, 2012 [facility] [address] [id number] [place] [address] Apr, [facility] [address] [id number] [place] [address] Apr, [facility] [address] [id number] [place] [address] Apr, [facility] [address] [id number] [place] [address] Apr, [facility] [address] [id number] [place] [address] Apr, [facility] [address] [id number] [place] [address] Mar, [facility] [address] [id number] [place] [address] Mar, [facility] [address] [id number] [place] [address] Mar, [facility] [address] [id number] [place] [address] Mar, [facility] [address] [id number] [place] [address] 18 Jan, 2012 [facility] [id number] [place] [address] 10 Jan, 2012 [facility] [address] [id number] [place] [address] Jan, [facility] [address] [id number] [place] [address] 06 Jan, [address] [facility] [address] [id number] [place] [id number] Dec, [facility] [id number] [place] [address] Dec, [facility] [address] [id number] [place] [id number] Dec, [facility] [address] [address] Dec, [facility] [address] [address] Dec, [facility] [address] [address] Dec, [facility] [address] [address] Nov, [facility] [address] [address] Nov, [facility] [address] [address] Nov, IMMUNIZATIONS No Known Immunizations SOCIAL HISTORY [...] placed 08/19/2017 Hospitalization History Syncope- [facility] 12/2017 Hospitalization History heart cath ( 06/23/18-06/25/2018) Hospitalization History heart problem, overnight stay 9
--- OUTSIDE RECORDS SUMMARY | 2019-11-03 19:24 | XMS REPORT ---
Author Author Anca Villalobos Organization [facility], [place] Address [address] [place] [address] Care Team Providers Care Supervisor Name Role Phone CHERYL Villalobos Unavailable PROBLEMS Type Condition ICD9-CM Code KRZ19-FY Code Onset Dates Condition S tatus SNOMED Code Problem Esophageal reflux K21.9 Active 24 8979762 Problem Dyslipidemia E78.5 12 Oct, 2017 Active 3709 84382 Problem Unspecified hypothyroidism E03.9 Act hernesto 98327824 Problem Generalized anxiety disorder F41.1 Apr, 200 8 Active 54508083 Problem Shortness of breath R06.02 23 Apr, 2008 Active 021146689 Problem Pulmonary embolus I26.99 13 Oct, 2011 Active 61223436 Problem Nonintractable migraine G43.009 08 Oct, 2015 Act hernesto 681086760 Problem Pre-diabetes R73.03 Active 8102045 02 Problem Morbid obesity with BMI of 50.0-59.9, adult Z68.43 Active 905178989 Problem Hypothyroidism E03.9 Active 02399 008 Problem Morbid obesity E66.01 Active 00885 6002 Problem Unspecified sleep apnea G47.30 Active 88930881 Problem Personal history of pulmonary embolism Z86.711 Active 522237300 Problem Osteoarthritis of right knee M17.11 13 May, 201 0 Active 273744034 Problem Renal stones N20.0 Active 7833675 7 Problem Coronary artery disease I25.10 Active 11335408 Problem Hyperlipidemia LDL goal <70 E78.5 Ac tive 48011181 Problem Migraine with aura and without status migrainosu s, not intractable G43.109 Active 6554912 ALLERGIES No Information ENCOUNTERS Encounter Location Date Diagnosis [facility] [place] [address] [id number] [place] [address] 07 Jun, 2019 Personal history of pulmonary embolism Z 86.711 [facility] [place] [address] [place] [id number] [place] [address] 07 Jun, 2019 Personal history of pulmonary embolism Z 86.711 [place] [address] [address] May, [facility] [facility] [address] [place] [address] 17 May, 2019 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 and Dizziness R42 [facility] [address] [facility] [id number] [address] [place] [address] Apr, Non-recurrent acute suppurat hernesto otitis media of both ears without spontaneous rupture of tympanic membranes H66.003 [place] [address] [address] 08 Feb, 2019 Pre-diabetes R73.03 and Hyperlipidemia L DL goal <[address] [address] Feb, [place] [address] [address] Feb, [address] [address] Jan, [place] [address] [address] Jan, [address] [address] 18 Jan, 2019 Encounter for Medicare annual wellness e xam Z00.00 ; Hyperlipidemia LDL goal <70 E78.5 ; Coronary artery disease I25.10 ; Hypothyroidism E03.9 ; Osteoarthritis of right knee M17.11 ; Morbid obesity with BMI of 50.0-59.9, adult Z68.43 and Esophageal reflux K21.[address] [address] 13 Jan, 2019 Dysuria R30.0 and Hematuria, unspecified type R31.[address] [address] Jan, Hematuria, unspecified type R31.9 [facility] [place] [address] [address] Dec, Hematuria, unspecified type R31.9 [facility] [place] [address] [place] [id number] [place] [address] Nov, Hematuria, unspecified type R31.[address] [place] [address] Nov, Other microscopic hematuria R31.29 [facility] [place] [address] [address] Nov, Vaginal gena B37.3 ; Other microscopi c hematuria R31.29 and Morbid obesity E66.01 [place] [address] [address] Nov, [place] [address] [address] Nov, [facility] [address] [place] [id number] [place] [address] Nov, UTI symptoms R39.9 and Morbi d obesity E66.01 [place] [address] [address] Nov, [place] [address] [address] September, [place] [address] [address] September, [place] [address] [address] Aug, Right foot pain M79.671 and Morbid obesi ty E66.01 [facility] [place] [address] [address] Jul, Right foot pain M79.671 and Morbid obesi ty E66.01 [facility] [address] [place] [id number] [place] [address] 12 Jul, 2018 Injury of right foot, initia l encounter S99.921A and Morbid obesity E66.01 [place] [address] [address] 05 Jul, 2018 Recurrent syncope R55 and Morbid obesity E66.01 [place] [address] [address] Jul, [place] [address] [address] Jun, Hematuria, unspecified type R31.9 and BM I 50.0-59.9, adult Z68.43 [place] [address] [address] 07 Jun, 2018 [place] [address] [place] [address] 04 Jun, 2018 longterm current use of ant icoagulant Z79.01 [facility] [address] [place] [address] May, Ankle pain, right M25.571 an d BMI 50.0-59.9, adult Z68.43 [place] [address] [address] May, [place] [address] [address] May, [place] [address] [address] Apr, [place] [address] [address] Apr, [place] [address] [address] Apr, [facility] [address] [place] [id number] [place] [address] Apr, BMI 50.0-59.9, adult Z68.43 and Weakness R53.1 [place] [address] [address] Apr, [facility] [place] [address] [address] Apr, Dysuria R30.0 ; Hematuria R3 1.9 ; Renal lithiasis N20.0 and BMI 50.0-59.9, adult Z68.43 [place] [address] [address] Apr, [place] [address] [address] Apr, [place] [address] [address] Apr, Hypothyroidism E03.9 [place] [address] [address] Apr, Burning with urination R30.0 ; 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, 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 ; Acute bilateral low back pain without sciatica M54.5 and BMI 50.0-59.9, adult Z68.43 [place] [address] [address] Mar, Hypothyroidism E03.9 [place] [address] [address] Feb, [facility] [place] [address] [address] Jan, [place] [address] [address] 07 Jan, 2018 Acute non-recurrent maxillary sinusitis J01.00 and BMI 50.0-59.9, adult Z68.43 [facility] IN [place] [address] [address] 04 Jan, 2018 Congestion of upper respirat ory tract J98.8 and BMI 50.0-59.9, adult Z68.43 [place] [address] [address] Dec, Type 2 diabetes mellitus with diabetic n europathic arthropathy, 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 ; Morbid obesity with BMI of 50.0-59.9, adult Z68.43 ; Hypothyroidism E03.9 ; Coronary artery disease I25.10 ; Hyperlipidemia LDL goal <70 E78.5 ; Right lower quadrant abdominal pain R10.31 and Acute cystitis with hematuria N30.01 [facility] IN [facility] [address] [facility] [id number] [address] [place] [address] Dec, Migraine with aura and witho ut status migrainosus, not intractable G43.109 ; Dehydration symptoms R63.8 and BMI 50.0-59.9, adult Z68.43 [facility] [place] [address] [address] Oct, [place] [address] [address] Oct, [place] [address] [address] Oct, [place] [address] [address] September, [place] [address] [address] September, Type 2 diabetes mellitus with diabetic n europathic arthropathy, 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 ; Hyperlipidemia, unspecified hyperlipidemia type E78.5 ; Personal history of pulmonary embolism Z86.711 ; Coronary artery disease I25.10 and Hypothyroidism E03.9 [facility] [place] [address] [address] September, [place] [address] [address] Aug, Type 2 diabetes mellitus with diabetic [...] without aura and with status migrainosus G43.011 [facility] [place] [address] [address] Aug, [place] [address] [address] Aug, [place] [address] [address] Jul, Renal stones N20.0 [facility] [address] [facility] [id number] [place] [address] 19 Jun, 2017 Back pain M54.9 ; Kidney sto radha N20.0 and BMI 50.0-59.9, adult Z68.43 [place] [address] [address] Jun, [place] [address] [address] Apr, [place] [address] [address] Apr, [place] [address] [address] Apr, Right foot pain M79.671 ; Acute gout inv olving toe of right foot, 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 and Arthritis M19.90 [place] [address] [address] 06 Apr, 2017 Gastroesophageal reflux disease without esophagitis K21.9 [place] [address] [address] 16 Mar, 2017 Hypothyroidism, unspecified E03.9 [place] [address] [address] 11 Feb, 2017 [place] [address] [address] 25 Jan, 2017 Cervicalgia of cfuappdr-nbklwpl-aknvy re gion M54.2 and Persistent headaches R51 [place] [address] [address] 20 Jan, 2017 [place] [address] [address] 12 Jan, 2017 Intractable migraine without aura and wi th status migrainosus G43.011 ; Cervical spine pain M54.2 ; Hyperlipidemia, unspecified hyperlipidemia type E78.5 ; Hypothyroidism E03.9 and Metabolic syndrome E88.81 [place] [address] [address] Jan, Hypothyroidism, unspecified E03.9 [place] [address] [address] Dec, Hypothyroidism, unspecified E03.9 [place] [address] [address] Dec, Hypothyroidism E03.[address] [address] Nov, Laceration of left great toe w/o foreign body w/o damage to nail, initial encounter S91.112A [facility] [address] [facility] [id number] [address] [place] [address] Oct, Pain in left knee M25.562 an d Arthritis M19.[address] [address] Oct, Hypothyroidism, unspecified E03.9 and Hy perlipidemia, unspecified hyperlipidemia type E78.[address] [address] Oct, Gastroesophageal reflux disease without esophagitis K21.[address] [address] 14 Oct, 2016 Metabolic syndrome E88.81 ; Personal his tory of pulmonary embolism Z86.711 ; Other specified hypothyroidism E03.8 and Hyperlipidemia, unspecified hyperlipidemia type E78.5 [place] [address] [address] 13 Oct, 2017 Personal history of pulmonary embolism Z 86.711 ; Dysuria R30.0 ; Metabolic syndrome E88.81 ; Other specified hypothyroidism E03.8 ; Hyperlipidemia, unspecified hyperlipidemia type E78.5 and Morbid obesity with BMI of 50.0-59.9, adult Z68.43 [place] [address] [address] September, [facility] IN [address] [address] September, Wrist pain, left M25.532 and Acute pain of left knee M25.[address] [address] Jul, Dysuria R30.0 [place] [address] [address] Jul, Dysuria R30.[address] [address] Jul, Left lower quadrant pain R10.32 [place] [address] [address] Jul, [address] [address] Jul, Coronary artery disease I25.10 ; Family history of diabetes mellitus Z83.3 ; Morbid obesity with BMI of 50.0-59.9, adult Z68.43 ; Metabolic syndrome E88.81 ; Personal history of pulmonary embolism Z86.711 ; Gastroesophageal reflux disease without esophagitis K21.9 ; Hypothyroidism, unspecified E03.9 ; Hyperlipidemia, unspecified hyperlipidemia type E78.5 and Left lower quadrant pain R10.32 [facility] IN [address] [address] Jul, [facility] [address] [address] 08 Jul, 2016 Morbid obesity with BMI of 5 0.0-59.9, adult Z68.43 [facility] [address] [address] 07 Jul, 2016 Generalized abdominal pain R 10.84 [facility] IN [address] [address] 02 Jun, 2016 Muscle strain of right upper back, initial encounter S29.012A [facility] [address] [address] May, Foreign body (FB) in soft ti ssue M79.[address] [address] Mar, Hypothyroidism, unspecified E03.9 and Ar thritis M19.[address] [address] Feb, Coronary artery disease I25.10 ; Morbid obesity with BMI of 50.0-59.9, adult Z68.43 ; Metabolic syndrome E88.81 ; Gastroesophageal reflux disease without esophagitis K21.9 ; Hypothyroidism, unspecified E03.9 ; Personal history of pulmonary embolism Z86.711 and Hyperlipidemia, unspecified hyperlipidemia type E78.[address] [address] Feb, [facility] [address] [address] Jan, Acute right-sided thoracic b ack pain M54.[address] [address] Jan, Acute pain of left knee M25.[address] [address] Dec, Dysuria R30.0 ; Metabolic syndrome E88.8 1 ; Acute pain of left knee M25.562 ; Acute cystitis with hematuria N30.01 and Acute left eye pain H57.12 [place] [address] [address] Dec, [place] [address] [address] Dec, [place] [address] [address] Dec, Hypothyroidism, unspecified E03.9 [place] [address] [address] Dec, [address] [address] Nov, Peripheral edema R60.9 and Acute pain of left knee M25.562 [facility] W[facility] IN [address] [address] September, [address] [address] September, Metabolic syndrome E88.81 and Allergy, s ubsequent encounter T78.40XD [facility] W[facility] IN [address] [address] September, Muscle strain T14.[address] [address] Aug, Chest pressure R07.89 ; Metabolic syndro me E88.81 ; Morbid obesity with BMI of 50.0-59.9, adult Z68.43 ; Esophageal reflux 530.81 and Shortness of breath R06.[address] [address] Aug, [address] [address] Aug, [address] [address] 11 Apr, 2016 Hypothyroidism, unspecified E03.9 [facility] [place] [address] [address] Aug, Routine health maintenance Z00.00 [facility] IN [place] [address] [place] [id number] [place] [address] Aug, [place] [address] [address] 31 Jul, 2015 Routine health maintenance Z00.00 ; Fami ly history of diabetes mellitus Z83.3 ; Family history of cancer Z80.9 and Morbid obesity with BMI of 50.0-59.9, adult Z68.43 [facility] IN [address] [address] 28 Jul, 2015 Allergic rhinitis J30.9 and Postnasal drip R09.[address] [address] Jul, Influenza J11.1 [facility] IN [place] [id number] [place] [address] Jul, Dysuria R30.[address] [address] Apr, [address] [address] Mar, Acute upper respiratory infection, unspe cified J06.9 and Hypothyroidism E03.[address] [address] Mar, [address] [address] Feb, Coronary artery disease I25.[address] [address] Feb, Left foot pain M79.[address] [address] Jan, UTI (urinary tract infection) 599.0 [place] [address] [address] Jan, Urinary tract infection, site not specif ied 599.0 [facility] [place] [address] [address] Jan, Urinary tract infection, site not specif ied 599.0 [facility] [place] [address] [address] Jan, [facility] [place] [address] [address] Dec, Headache 784.0 [place] [address] [address] Dec, Urinary tract infection, site not specif ied 599.0 [place] [address] [address] Dec, Urinary tract infection, site not specif ied 599.0 [place] [address] [address] Dec, Urinary tract infection, site not specif ied 599.0 [place] [address] [address] Nov, Unspecified sleep apnea 780.57 ; Encount er for long-term (current) use of anticoagulants V58.61 ; Routine general medical examination at health care facility V70.0 and Arthritis of both knees 716.96 [place] [address] [address] September, Cat bite of hand 882.0 and Rectal bleedi ng 569.3 [place] [address] [address] Aug, [place] [address] [address] Aug, [place] [address] [address] Jul, [place] [address] [id number] [place] [address] Jul, [facility] [address] [facility] [id number] [place] [address] Jul, [facility] [address] [id number] [place] [address] Jul, [facility] [address] [id number] [place] [address] Jul, [facility] [address] [id number] [place] [address] Jul, [facility] [address] [id number] [place] [address] Jul, [facility] [address] [id number] [place] [address] Jul, [facility] [address] [id number] [place] [address] May, [facility] [address] [id number] [place] [address] May, [facility] [address] [id number] [place] [address] May, [facility] [address] [id number] [place] [address] May, [facility] [address] [id number] [place] [address] May, [facility] [address] [id number] [place] [address] May, [facility] [address] [id number] [place] [address] May, [facility] [address] [id number] [place] [address] Mar, [facility] [address] [id number] [place] [address] Mar, [facility] [address] [id number] [place] [address] Jan, [facility] [address] [id number] [place] [address] 08 Jan, 2013 [facility] [address] [facility] [id number] [place] [address] Jan, 2013 [facility] [address] [facility] [id number] [place] [address] Jan, 2013 [facility] [address] [id number] [place] [address] Jan, 2013 [facility] [address] [facility] [id number] [place] [address] Jan, 2013 [facility] [address] [id number] [place] [address] Dec, [facility] [address] [id number] [place] [address] Dec, [facility] [address] [id number] [place] [address] Dec, [facility] [address] [id number] [place] [address] Dec, [facility] [address] [id number] [place] [address] Dec, [facility] [address] [id number] [place] [address] Dec, [facility] [address] [id number] [place] [address] Dec, [facility] [address] [id number] [place] [address] Dec, [facility] [address] [facility] [id number] [place] [address] Dec, [facility] [address] [id number] [place] [address] Dec, [facility] [address] [id number] [place] [address] Nov, [facility] [address] [id number] [place] [address] Nov, [facility] [address] [id number] [place] [address] September, [facility] [address] [id number] [place] [address] September, [facility] [address] [id number] [place] [address] September, [facility] [address] [id number] [place] [address] September, [facility] [address] [id number] [place] [address] Aug, [facility] [address] [id number] [place] [address] Aug, [facility] [address] [id number] [place] [address] Aug, [facility] [address] [id number] [place] [address] Aug, [facility] [address] [id number] [place] [address] Aug, [facility] [address] [id number] [place] [address] Aug, [facility] [address] [id number] [place] [address] Aug, [facility] [address] [id number] [place] [address] Aug, [facility] [address] [id number] [place] [address] Aug, [facility] [address] [id number] [place] [address] Aug, [facility] [address] [id number] [place] [address] Aug, [facility] [address] [id number] [place] [address] Aug, [facility] [address] [id number] [place] [address] Jul, [facility] [address] [facility] [id number] [place] [address] Jul, [facility] [address] [id number] [place] [address] Jul, [facility] [address] [id number] [place] [address] Jul, [facility] [address] [id number] [place] [address] Jul, [facility] [address] [id number] [place] [address] Jul, [facility] [address] [id number] [place] [address] Jul, [facility] [address] [id number] [place] [address] Jul, [facility] [address] [id number] [place] [address] Jul, [facility] [address] [id number] [place] [address] Jul, [facility] [address] [id number] [place] [address] Jun, [facility] [address] [id number] [place] [address] Jun, [facility] [address] [id number] [place] [address] Jun, [facility] [address] [facility] [id number] [place] [address] Jun, [facility] [address] [id number] [place] [address] Jun, [facility] [address] [id number] [place] [address] Jun, [facility] [address] [id number] [place] [address] Jun, [facility] [address] [facility] [id number] [place] [address] Jun, [facility] [address] [id number] [place] [address] Jun, [facility] [address] [id number] [place] [address] Jun, [facility] [address] [id number] [place] [address] Jun, [facility] [address] [id number] [place] [address] Jun, [facility] [address] [id number] [place] [address] May, [facility] [address] [id number] [place] [address] May, [facility] [address] [id number] [place] [address] May, [facility] [address] [id number] [place] [address] May, [facility] [address] [id number] [place] [address] May, [facility] [address] [id number] [place] [address] May, [facility] [address] [id number] [place] [address] May, [facility] [address] [id number] [place] [address] May, [facility] [address] [id number] [place] [address] May, [facility] [address] [id number] [place] [address] May, [facility] [address] [id number] [place] [address] May, [facility] [address] [id number] [place] [address] 08 May, 2013 [facility] [address] [id number] [place] [address] May, [facility] [address] [id number] [place] [address] May, [facility] [address] [id number] [place] [address] May, [facility] [address] [id number] [place] [address] Apr, [facility] [address] [id number] [place] [address] Apr, [facility] [address] [id number] [place] [address] Apr, [facility] [address] [id number] [place] [address] Apr, [facility] [address] [id number] [place] [address] Mar, [facility] [address] [id number] [place] [address] Mar, [facility] [address] [id number] [place] [address] Mar, [facility] [address] [id number] [place] [address] Mar, [facility] [address] [id number] [place] [address] Mar, [facility] [address] [id number] [place] [address] Mar, [facility] [id number] [place] [address] Mar, [facility] [address] [id number] [place] [address] Mar, [facility] [address] [id number] [place] [address] Mar, [facility] [address] [id number] [place] [address] Mar, [facility] [address] [id number] [place] [address] Mar, [facility] [address] [id number] [place] [address] Mar, [facility] [address] [id number] [place] [address] Feb, [facility] [address] [id number] [place] [address] 18 Jan, 2013 [facility] [address] [id number] [place] [address] 17 Jan, 2013 [facility] [address] [id number] [place] [address] 06 Jan, 2012 [facility] [address] [id number] [place] [address] 04 Jan, 2013 [facility] [address] [id number] [place] [address] Jan, [facility] [address] [id number] [place] [address] Dec, [facility] [address] [id number] [place] [address] Dec, [facility] [address] [id number] [place] [address] Dec, [facility] [address] [id number] [place] [address] 16 Dec, 2012 [facility] [address] [id number] [place] [address] Dec, [facility] [address] [id number] [place] [address] Dec, [facility] [address] [id number] [place] [address] Dec, [facility] [address] [id number] [place] [address] Dec, [facility] [address] [id number] [place] [address] Nov, [facility] [address] [id number] [place] [address] Nov, [facility] [address] [id number] [place] [address] Nov, [facility] [address] [id number] [place] [address] Nov, [facility] [address] [id number] [place] [address] Nov, [facility] [address] [id number] [place] [address] Nov, [facility] [address] [id number] [place] [address] Oct, [facility] [address] [id number] [id number] Oct, [facility] [address] [id number] [id number] Oct, [facility] [address] [id number] [id number] Oct, [facility] [address] [id number] [id number] Oct, [facility] [address] [id number] [place] [address] Oct, [facility] [address] [id number] [place] [address] Oct, [facility] [address] [id number] [place] [address] Oct, [facility] [address] [id number] [place] [address] Oct, [facility] [address] [id number] [place] [address] 10 Oct, 2012 [facility] [address] [id number] [place] [address] Oct, [facility] [address] [id number] [place] [address] September, [facility] [address] [facility] [id number] [place] [address] Aug, [facility] [address] [id number] [place] [address] Aug, [facility] [address] [id number] [place] [address] Aug, [facility] [address] [facility] [id number] [place] [address] Aug, [facility] [address] [id number] [place] [address] 24 Jul, 2012 [facility] [address] [id number] [place] [address] Jul, [facility] [address] [id number] [place] [address] Jul, [facility] [address] [id number] [place] [address] Jul, [facility] [address] [id number] [place] [address] Jul, [facility] [address] [id number] [place] [address] Jun, [facility] [address] [id number] [place] [address] Jun, [facility] [address] [id number] [place] [address] Jun, [facility] [address] [id number] [place] [address] May, [facility] [address] [id number] [place] [address] 24 May, 2012 [facility] [address] [id number] [place] [address] 14 May, 2012 [facility] [address] [id number] [place] [address] 11 May, 2012 [facility] [address] [id number] [place] [address] May, [facility] [address] [id number] [place] [address] 04 May, 2012 [facility] [address] [id number] [place] [address] 18 Apr, 2012 [facility] [address] [id number] [place] [address] 18 Apr, 2012 [facility] [address] [id number] [place] [address] 13 Apr, 2012 [facility] [address] [id number] [place] [address] 13 Apr, 2012 [facility] [address] [id number] [place] [address] 13 Apr, 2012 [facility] [address] [id number] [place] [address] Apr, [facility] [address] [id number] [place] [address] Apr, [facility] [address] [id number] [place] [address] Mar, [facility] [address] [id number] [place] [address] Mar, [facility] [address] [id number] [place] [address] Mar, [facility] [address] [id number] [place] [address] Mar, [facility] [address] [id number] [place] [address] 18 Jan, 2012 [facility] [address] [id number] [place] [address] 10 Jan, 2012 [facility] [address] [id number] [place] [address] Jan, [facility] [place] [id number] [place] [address] Jan, [facility] [id number] [place] [id number] Dec, [facility] [place] [id number] [place] [address] Dec, [facility] [address] [id number] [place] [id number] Dec, [facility] [place] [address] [address] Dec, [facility] [place] [address] [address] Dec, [facility] [place] [address] [address] Dec, [facility] [place] [address] [address] Nov, [facility] [place] [address] [address] Nov, [facility] [place] [id number] [place] [address] Nov, IMMUNIZATIONS No Known Immunizations SOCIAL HISTORY Never Assessed REASON FOR VISIT PLAN OF CARE VITAL SIGNS Height 62 in 2013-06-14 Weight 336 lbs 2013-06-14 Temperature 97.8 degrees Fahrenheit 2013-06-14 Heart Rate 78 bpm 2013-06-14 Respiratory Rate 20 2013-06-14 Blood pressure systolic 128 mmHg 2013-06-14 Blood pressure diastolic 78 mmHg 2013-06-14 MEDICATIONS Unknown Medications RESULTS No Results PROCEDURES Procedure Date Ordered Result Body Site URINALYSIS, AUTO, W/O SCOPE Jun 14, 2013 INSTRUCTIONS MEDICATIONS ADMINISTERED No Known Medications [...] asthma(493.90) Medical History Near syncope Medical History longterm current use of anticoagulant Medical History Renal [...]
--- OUTSIDE RECORDS SUMMARY | 2019-11-03 19:25 | XMS REPORT ---
Author Author Anca Lucero Doctor Organization [facility] Address Unknown Phone Unavailable Care Team Providers Care Colored Liquid Plastic Applier Name Role Phone Migration, Doctor Unavailable Unavailable PROBLEMS Type Condition ICD9-CM Code WDW87-AB Code Onset Dates Condition S tatus SNOMED Code Problem Esophageal reflux K21.9 Active 24 5532816 Problem Dyslipidemia E78.5 12 Oct, 2017 Active 3709 46371 Problem Unspecified hypothyroidism E03.9 Act hernesto 01887674 Problem Generalized anxiety disorder F41.1 Apr, 200 8 Active 25422178 Problem Shortness of breath R06.02 Apr, Active 333178393 Problem Pulmonary embolus I26.99 13 Oct, 2011 Active 61894388 Problem Nonintractable migraine G43.009 08 Oct, 2015 Act hernesto 630600402 Problem Pre-diabetes R73.03 Active 7666478 02 Problem Morbid obesity with BMI of 50.0-59.9, adult Z68.43 Active 771859498 Problem Hypothyroidism E03.9 Active 00028 008 Problem Morbid obesity E66.01 Active 51914 6002 Problem Unspecified sleep apnea G47.30 Active 93382736 Problem Personal history of pulmonary embolism Z86.711 Active 156081494 Problem Osteoarthritis of right knee M17.11 13 May, 201 0 Active 220024251 Problem Renal stones N20.0 Active 6312830 7 Problem Coronary artery disease I25.10 Active 14943255 Problem Hyperlipidemia LDL goal <70 E78.5 Ac tive 76988385 Problem Migraine with aura and without status migrainosu s, not intractable G43.109 Active 0769293 ALLERGIES No Information ENCOUNTERS Encounter Location Date Diagnosis [facility] [place] [address] [id number] [place] [address] 07 Jun, 2019 Personal history of pulmonary embolism Z 86.711 [facility] [place] [address] [id number] [place] [address] 07 Jun, 2019 Personal history of pulmonary embolism Z 86.711 [place] [id number] [id number] [place] [address] May, [facility] [address] [place] [address] May, 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 and Dizziness R42 [facility] [address] [facility] [id number] [address] [place] [address] Apr, Non-recurrent acute suppurat hernesto otitis media of both ears without spontaneous rupture of tympanic membranes H66.003 [place] [address] [address] 08 Feb, 2019 Pre-diabetes R73.03 and Hyperlipidemia L DL goal <70 E78.5 [place] [address] [place] [id number] [place] [address] Feb, [place] [address] [address] Feb, [place] [address] [place] [id number] [place] [address] Jan, [place] [address] [address] Jan, [place] [address] [address] 18 Jan, 2019 Encounter for Medicare annual wellness e xam Z00.00 ; Hyperlipidemia LDL goal <70 E78.5 ; Coronary artery disease I25.10 ; Hypothyroidism E03.9 ; Osteoarthritis of right knee M17.11 ; Morbid obesity with BMI of 50.0-59.9, adult Z68.43 and Esophageal reflux K21.9 [place] [address] [address] Jan, Dysuria R30.0 and Hematuria, unspecified type R31.9 [place] [address] [place] [id number] [place] [address] Jan, Hematuria, unspecified type R31.9 [place] [address] [place] [address] [place] [address] Dec, Hematuria, unspecified type R31.9 [facility] [place] [address] [address] Nov, Hematuria, unspecified type R31.[address] [place] [address] Nov, Other microscopic hematuria R31.29 [place] [address] [address] Nov, Vaginal gena B37.3 ; Other microscopi c hematuria R31.29 and Morbid obesity E66.01 [place] [address] [address] Nov, [place] [address] [address] Nov, [facility] [address] [place] [id number] [address] [place] [address] Nov, UTI symptoms R39.9 and Morbi d obesity E66.01 [place] [address] [address] Nov, [place] [address] [address] September, [place] [address] [address] September, [place] [address] [address] Aug, Right foot pain M79.671 and Morbid obesi ty E66.01 [place] [address] [address] Jul, Right foot pain M79.671 and Morbid obesi ty E66.01 [facility] [address] [facility] [id number] [address] [place] [address] Jul, Injury of right foot, initia l encounter S99.921A and Morbid obesity E66.01 [place] [address] [place] [id number] [place] [address] Jul, Recurrent syncope R55 and Morbid obesity E66.01 [place] [address] [place] [id number] [place] [address] Jul, [place] [address] [address] Jun, Hematuria, unspecified type R31.9 and BM I 50.0-59.9, adult Z68.43 [place] [address] [place] [id number] [place] [address] 07 Jun, 2018 [place] [address] [place] [address] 04 Jun, 2018 alf current use of ant icoagulant Z79.01 [facility] [place] N [facility] [id number] [address] [place] [address] May, Ankle pain, right M25.571 an d BMI 50.0-59.9, adult Z68.43 [place] [address] [address] May, [place] [address] [address] May, [place] [address] [address] Apr, [place] [address] [address] Apr, [place] [address] [address] Apr, [facility] [address] [facility] [id number] [address] [place] [address] Apr, BMI 50.0-59.9, adult Z68.43 and Weakness R53.1 [place] [address] [address] Apr, [facility] [place] [address] [address] Apr, Dysuria R30.0 ; Hematuria R3 1.9 ; Renal lithiasis N20.0 and BMI 50.0-59.9, adult Z68.43 [place] [address] [address] Apr, [place] [address] [address] Apr, [place] [address] [address] Apr, Hypothyroidism E03.9 [place] [address] [address] Apr, Burning with urination R30.0 ; 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, 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 ; Acute bilateral low back pain without sciatica M54.5 and BMI 50.0-59.9, adult Z68.43 [place] [address] [address] Mar, Hypothyroidism E03.9 [place] [address] [address] Feb, [facility] [place] [address] [address] 15 Jan, 2018 [place] [address] [address] 07 Jan, 2018 Acute non-recurrent maxillary sinusitis J01.00 and BMI 50.0-59.9, adult Z68.43 [facility] [address] [address] 04 Jan, 2018 Congestion of upper respirat ory tract J98.8 and BMI 50.0-59.9, adult Z68.43 [place] [address] [address] Dec, Type 2 diabetes mellitus with diabetic n europathic arthropathy, 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 ; Morbid obesity with BMI of 50.0-59.9, adult Z68.43 ; Hypothyroidism E03.9 ; Coronary artery disease I25.10 ; Hyperlipidemia LDL goal <70 E78.5 ; Right lower quadrant abdominal pain R10.31 and Acute cystitis with hematuria N30.01 [facility] [address] [facility] [id number] [address] [place] [address] Dec, Migraine with aura and witho ut status migrainosus, not intractable G43.109 ; Dehydration symptoms R63.8 and BMI 50.0-59.9, adult Z68.43 [place] [address] [address] Oct, [place] [address] [address] Oct, [place] [address] [address] Oct, [facility] [place] [address] [address] September, [place] [address] [address] September, Type 2 diabetes mellitus with diabetic n europathic arthropathy, 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 ; Hyperlipidemia, unspecified hyperlipidemia type E78.5 ; Personal history of pulmonary embolism Z86.711 ; Coronary artery disease I25.10 and Hypothyroidism E03.9 [facility] [place] [address] [address] September, [place] [address] [address] Aug, Type 2 diabetes mellitus with diabetic [...] without aura and with status migrainosus G43.011 [place] [address] [address] Aug, [place] [address] [address] Aug, [place] [address] [address] Jul, Renal stones N20.0 [facility] [address] [facility] [id number] [address] [place] [address] Jun, Back pain M54.9 ; Kidney sto radha N20.0 and BMI 50.0-59.9, adult Z68.43 [place] [address] [address] Jun, [place] [address] [address] Apr, [place] [address] [address] Apr, [place] [address] [address] Apr, Right foot pain M79.671 ; Acute gout inv olving toe of right foot, 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 and Arthritis M19.90 [place] [address] [address] 06 Apr, 2017 Gastroesophageal reflux disease without esophagitis K21.9 [place] [address] [address] 16 Mar, 2017 Hypothyroidism, unspecified E03.9 [place] [address] [address] 11 Feb, 2017 [place] [address] [address] 25 Jan, 2017 Cervicalgia of ficjknuu-ceivwcb-acxxz re gion M54.2 and Persistent headaches R51 [place] [address] [address] 20 Jan, 2017 [place] [address] [address] 12 Jan, 2017 Intractable migraine without aura and wi th status migrainosus G43.011 ; Cervical spine pain M54.2 ; Hyperlipidemia, unspecified hyperlipidemia type E78.5 ; Hypothyroidism E03.9 and Metabolic syndrome E88.81 [place] [address] [address] Jan, Hypothyroidism, unspecified E03.9 [place] [address] [address] Dec, Hypothyroidism, unspecified E03.9 [place] [address] [address] Dec, Hypothyroidism E03.9 [place] [address] [address] Nov, Laceration of left great toe w/o foreign body w/o damage to nail, initial encounter S91.112A [facility] [address] [facility] [id number] [address] [place] [address] Oct, Pain in left knee M25.562 an d Arthritis M19.90 [place] [address] [address] Oct, Hypothyroidism, unspecified E03.9 and Hy perlipidemia, unspecified hyperlipidemia type E78.5 [place] [address] [address] Oct, Gastroesophageal reflux disease without esophagitis K21.9 [place] [address] [address] 14 Oct, 2016 Metabolic syndrome E88.81 ; Personal his tory of pulmonary embolism Z86.711 ; Other specified hypothyroidism E03.8 and Hyperlipidemia, unspecified hyperlipidemia type E78.[address] [address] 13 Oct, 2017 Personal history of pulmonary embolism Z 86.711 ; Dysuria R30.0 ; Metabolic syndrome E88.81 ; Other specified hypothyroidism E03.8 ; Hyperlipidemia, unspecified hyperlipidemia type E78.5 and Morbid obesity with BMI of 50.0-59.9, adult Z68.[address] [address] September, [facility] [address] [address] September, Wrist pain, left M25.532 and Acute pain of left knee M25.[address] [address] Jul, Dysuria R30.[address] [address] Jul, Dysuria R30.[address] [address] Jul, Left lower quadrant pain R10.[address] [address] Jul, [address] [address] Jul, Coronary artery disease I25.10 ; Family history of diabetes mellitus Z83.3 ; Morbid obesity with BMI of 50.0-59.9, adult Z68.43 ; Metabolic syndrome E88.81 ; Personal history of pulmonary embolism Z86.711 ; Gastroesophageal reflux disease without esophagitis K21.9 ; Hypothyroidism, unspecified E03.9 ; Hyperlipidemia, unspecified hyperlipidemia type E78.5 and Left lower quadrant pain R10.32 [facility] [place] [id number] [address] [place] [address] Jul, [facility] [address] [address] Jul, Morbid obesity with BMI of 5 0.0-59.9, adult Z68.43 [facility] [address] [address] Jul, Generalized abdominal pain R 10.84 [facility] [address] [address] 02 Jun, 2016 Muscle strain of right upper back, initial encounter S29.012A [facility] [address] [address] May, Foreign body (FB) in soft ti ssue M79.[address] [address] Mar, Hypothyroidism, unspecified E03.9 and Ar thritis M19.[address] [address] Feb, Coronary artery disease I25.10 ; Morbid obesity with BMI of 50.0-59.9, adult Z68.43 ; Metabolic syndrome E88.81 ; Gastroesophageal reflux disease without esophagitis K21.9 ; Hypothyroidism, unspecified E03.9 ; Personal history of pulmonary embolism Z86.711 and Hyperlipidemia, unspecified hyperlipidemia type E78.[address] [address] Feb, [facility] [address] [address] Jan, Acute right-sided thoracic b ack pain M54.[address] [address] Jan, Acute pain of left knee M25.[address] [address] Dec, Dysuria R30.0 ; Metabolic syndrome E88.8 1 ; Acute pain of left knee M25.562 ; Acute cystitis with hematuria N30.01 and Acute left eye pain H57.[address] [address] Dec, [place] [address] [address] Dec, [place] [address] [address] Dec, Hypothyroidism, unspecified E03.9 [place] [address] [address] Dec, [place] [address] [address] Nov, Peripheral edema R60.9 and Acute pain of left knee M25.562 [facility] [place] [address] [place] [id number] [place] [address] September, [place] [address] [address] September, Metabolic syndrome E88.81 and Allergy, s ubsequent encounter T78.40XD [facility] [place] [address] [facility] [id number] [address] [place] [address] September, Muscle strain T14.8 [place] [address] [address] Aug, Chest pressure R07.89 ; Metabolic syndro me E88.81 ; Morbid obesity with BMI of 50.0-59.9, adult Z68.43 ; Esophageal reflux 530.81 and Shortness of breath R06.02 [place] [address] [address] Aug, [place] [address] [address] Aug, [place] [address] [address] Aug, Hypothyroidism, unspecified E03.9 [place] [address] [address] Aug, Routine health maintenance Z00.00 [facility] [place] [address] [facility] [id number] [address] [place] [address] Aug, [place] [address] [address] 31 Jul, 2015 Routine health maintenance Z00.00 ; Fami ly history of diabetes mellitus Z83.3 ; Family history of cancer Z80.9 and Morbid obesity with BMI of 50.0-59.9, adult Z68.43 [facility] [place] [address] [place] [id number] [address] [place] [address] 28 Jul, 2015 Allergic rhinitis J30.9 and Postnasal drip R09.[address] [address] 18 Jul, 2015 Influenza J11.1 [facility] [address] [address] Jul, Dysuria R30.0 [place] [address] [address] Apr, [address] [address] Mar, Acute upper respiratory infection, unspe cified J06.9 and Hypothyroidism E03.[address] [address] Mar, [place] [address] [address] Feb, Coronary artery disease I25.10 [place] [address] [address] Feb, Left foot pain M79.[address] [address] Jan, UTI (urinary tract infection) 599.[address] [address] Jan, Urinary tract infection, site not specif ied 599.0 [facility] [place] [address] [place] [id number] [place] [address] Jan, Urinary tract infection, site not specif ied 599.0 [facility] [place] [address] [address] Jan, [facility] [place] [address] [address] Dec, Headache 784.0 [facility] [place] [address] [address] Dec, Urinary tract infection, site not specif ied 599.0 [place] [address] [address] Dec, Urinary tract infection, site not specif ied 599.0 [place] [address] [address] Dec, Urinary tract infection, site not specif ied 599.0 [place] [address] [address] Nov, Unspecified sleep apnea 780.57 ; Encount er for long-term (current) use of anticoagulants V58.61 ; Routine general medical examination at health care facility V70.0 and Arthritis of both knees 716.96 [place] [address] [address] September, Cat bite of hand 882.0 and Rectal bleedi ng 569.3 [facility] [place] [address] [place] [id number] [place] [address] Aug, [facility] [place] [address] [address] Aug, [facility] [place] [address] [address] Jul, [facility] [place] [address] [address] Jul, [facility] [place] [address] [place] [address] Jul, [facility] [address] [id number] [place] [address] Jul, [facility] [address] [id number] [place] [address] Jul, [facility] [address] [id number] [place] [address] Jul, [facility] [address] [id number] [place] [address] Jul, [facility] [address] [id number] [place] [address] Jul, [facility] [address] [id number] [place] [address] May, [facility] [address] [id number] [place] [address] May, [facility] [address] [id number] [place] [address] May, [facility] [address] [id number] [place] [address] May, [facility] [address] [id number] [place] [address] May, [facility] [address] [id number] [place] [address] May, [facility] [address] [id number] [place] [address] May, [facility] [address] [id number] [place] [address] Mar, [facility] [address] [id number] [place] [address] Mar, [facility] [address] [id number] [place] [address] Jan, [facility] [address] [id number] [place] [address] Jan, [facility] [address] [id number] [place] [address] 08 Jan, 2013 [facility] [address] [facility] [id number] [place] [address] Jan, 2013 [facility] [address] [facility] [id number] [place] [address] Jan, 2013 [facility] [address] [id number] [place] [address] Jan, 2013 [facility] [address] [facility] [id number] [place] [address] Dec, [facility] [address] [id number] [place] [address] Dec, [facility] [address] [id number] [place] [address] Dec, [facility] [address] [id number] [place] [address] Dec, [facility] [address] [id number] [place] [address] Dec, [facility] [address] [id number] [place] [address] Dec, [facility] [address] [id number] [place] [address] Dec, [facility] [address] [id number] [place] [address] Dec, [facility] [address] [id number] [place] [address] Dec, [facility] [address] [facility] [id number] [place] [address] Dec, [facility] [address] [id number] [place] [address] Nov, [facility] [address] [id number] [place] [address] Nov, [facility] [address] [id number] [place] [address] September, [facility] [address] [facility] [id number] [place] [address] September, [facility] [address] [facility] [id number] [place] [address] September, [facility] [address] [id number] [place] [address] September, [facility] [address] [id number] [place] [address] Aug, [facility] [address] [facility] [id number] [place] [address] Aug, [facility] [place] [facility] [address] [id number] [place] [address] Aug, [facility] [place] [facility] [address] [id number] [place] [address] Aug, [facility] [place] [facility] [address] [id number] [place] [address] Aug, [facility] [place] [facility] [address] [id number] [place] [address] Aug, [facility] [place] [facility] [address] [id number] [place] [address] Aug, [facility] [place] [facility] [address] [id number] [place] [address] Aug, [facility] [place] [facility] [address] [id number] [place] [address] Aug, [facility] [place] [facility] [address] [facility] [id number] [place] [address] Aug, [facility] [place] [facility] [address] [id number] [place] [address] Aug, [facility] [place] [facility] [address] [id number] [place] [address] Aug, [facility] [place] [facility] [address] [id number] [place] [address] Jul, [facility] [place] [facility] [address] [id number] [place] [address] Jul, [facility] [place] [facility] [address] [facility] [id number] [place] [address] Jul, [facility] [place] [facility] [address] [id number] [place] [address] Jul, [facility] [place] [facility] [address] [id number] [place] [address] Jul, [facility] [place] [facility] [address] [id number] [place] [address] Jul, [facility] [place] [facility] [address] [id number] [place] [address] Jul, [facility] [place] [facility] [address] [id number] [place] [address] Jul, [facility] [place] [facility] [address] [id number] [place] [address] Jul, [facility] [place] [facility] [address] [id number] [place] [address] Jul, [facility] [place] [facility] [address] [id number] [place] [address] Jun, [facility] [place] [facility] [address] [id number] [place] [address] Jun, [facility] [place] [facility] [address] [id number] [place] [address] Jun, [facility] [place] [facility] [address] [id number] [place] [address] Jun, [facility] [place] [facility] [address] [id number] [place] [address] Jun, [facility] [place] [facility] [address] [id number] [place] [address] Jun, [facility] [place] [facility] [address] [id number] [place] [address] Jun, [facility] [place] [facility] [address] [id number] [place] [address] Jun, [facility] [place] [facility] [address] [facility] [id number] [place] [address] Jun, [facility] [place] [facility] [address] [facility] [id number] [place] [address] Jun, [facility] [place] [facility] [address] [facility] [id number] [place] [address] Jun, [facility] [place] [facility] [address] [facility] [id number] [place] [address] Jun, [facility] [place] [facility] [address] [facility] [id number] [place] [address] May, [facility] [place] [facility] [address] [id number] [place] [address] May, [facility] [place] [facility] [address] [id number] [place] [address] May, [facility] [place] [facility] [address] [id number] [place] [address] May, [facility] [place] [facility] [address] [id number] [place] [address] May, [facility] [place] [facility] [address] [id number] [place] [address] May, [facility] [place] [facility] [address] [id number] [place] [address] May, [facility] [place] [facility] [address] [id number] [place] [address] May, [facility] [place] [facility] [address] [id number] [place] [address] May, [facility] [place] [facility] [address] [id number] [place] [address] May, [facility] [place] [facility] [address] [id number] [place] [address] May, [facility] [place] [facility] [address] [id number] [place] [address] May, [facility] [place] [facility] [address] [id number] [place] [address] May, [facility] [place] [facility] [address] [id number] [place] [address] May, [facility] [place] [facility] [address] [id number] [place] [address] May, [facility] [place] [facility] [address] [id number] [place] [address] Apr, [facility] [place] [facility] [address] [id number] [place] [address] Apr, [facility] [place] [facility] [address] [id number] [place] [address] Apr, [facility] [place] [facility] [address] [id number] [place] [address] Apr, [facility] [place] [facility] [address] [id number] [place] [address] Mar, [facility] [place] [facility] [address] [id number] [place] [address] Mar, [facility] [place] [facility] [address] [id number] [place] [address] Mar, [facility] [place] [facility] [address] [id number] [place] [address] Mar, [facility] [place] [facility] [address] [id number] [place] [address] Mar, [facility] [place] [facility] [address] [id number] [place] [address] Mar, [facility] [place] [facility] [address] [id number] [place] [address] Mar, [facility] [place] [facility] [id number] [place] [address] Mar, [facility] [place] [facility] [address] [id number] [place] [address] Mar, [facility] [place] [facility] [address] [id number] [place] [address] Mar, [facility] [place] [facility] [address] [id number] [place] [address] Mar, 2012 [facility] [place] [facility] [address] [id number] [place] [address] Mar, [facility] [place] [facility] [address] [id number] [place] [address] Feb, [facility] [place] [facility] [address] [id number] [place] [address] 18 Jan, 2013 [facility] [place] [facility] [address] [facility] [id number] [place] [address] 17 Jan, 2012 [facility] [place] [facility] [address] [id number] [place] [address] Jan, [facility] [place] [facility] [address] [id number] [place] [address] Jan, [facility] [place] [facility] [address] [id number] [place] [address] Jan, [facility] [place] [facility] [address] [id number] [place] [address] Dec, [facility] [place] [facility] [address] [id number] [place] [address] Dec, [facility] [place] [facility] [address] [id number] [place] [address] Dec, [facility] [place] [facility] [address] [id number] [place] [address] 16 Dec, 2012 [facility] [place] [facility] [address] [id number] [place] [address] Dec, [facility] [place] [facility] [address] [id number] [place] [address] Dec, [facility] [place] [facility] [address] [id number] [place] [address] Dec, [facility] [place] [facility] [address] [id number] [place] [address] Dec, [facility] [place] [facility] [address] [id number] [place] [address] Nov, [facility] [place] [facility] [address] [id number] [place] [address] Nov, [facility] [place] [facility] [address] [id number] [place] [address] Nov, [facility] [place] [facility] [address] [id number] [place] [address] Nov, [facility] [place] [facility] [address] [id number] [place] [address] Nov, [facility] [place] [facility] [address] [id number] [place] [address] Nov, [facility] [place] [facility] [address] [id number] [place] [address] Oct, [id number] [id number] Oct, [facility] [address] [id number] [id number] Oct, [facility] [address] [id number] [id number] Oct, [id number] [id number] Oct, [facility] [place] [facility] [address] [id number] [place] [address] Oct, [facility] [place] [facility] [address] [id number] [place] [address] Oct, [facility] [place] [facility] [address] [id number] [place] [address] Oct, [facility] [place] [facility] [address] [id number] [place] [address] Oct, [facility] [place] [facility] [address] [id number] [place] [address] Oct, [facility] [place] [facility] [address] [id number] [place] [address] Oct, [facility] [place] [facility] [address] [id number] [place] [address] September, [facility] [address] [facility] [id number] [place] [address] Aug, [facility] [place] [facility] [address] [id number] [place] [address] Aug, [facility] [place] [facility] [address] [id number] [place] [address] Aug, [facility] [place] [facility] [address] [id number] [place] [address] Aug, [facility] [place] [facility] [address] [facility] [id number] [place] [address] Jul, [facility] [place] [facility] [address] [id number] [place] [address] Jul, [facility] [place] [facility] [address] [id number] [place] [address] Jul, [facility] [place] [facility] [address] [id number] [place] [address] Jul, [facility] [place] [facility] [address] [id number] [place] [address] Jul, [facility] [place] [facility] [address] [id number] [place] [address] Jun, [facility] [place] [facility] [address] [id number] [place] [address] Jun, [facility] [place] [facility] [address] [id number] [place] [address] Jun, [facility] [place] [facility] [address] [id number] [place] [address] May, [facility] [place] [facility] [address] [id number] [place] [address] May, [facility] [place] [facility] [address] [id number] [place] [address] May, [facility] [place] [facility] [address] [id number] [place] [address] May, [facility] [place] [facility] [address] [id number] [place] [address] May, [facility] [place] [facility] [address] [id number] [place] [address] May, [facility] [place] [facility] [address] [id number] [place] [address] Apr, [facility] [place] [facility] [address] [id number] [place] [address] 18 Apr, 2012 [facility] [place] [facility] [address] [id number] [place] [address] Apr, [facility] [place] [facility] [address] [id number] [place] [address] Apr, [facility] [place] [facility] [address] [id number] [place] [address] Apr, [facility] [place] [facility] [address] [id number] [place] [address] Apr, [facility] [place] [facility] [address] [id number] [place] [address] Apr, [facility] [place] [facility] [address] [id number] [place] [address] Mar, [facility] [place] [facility] [address] [id number] [place] [address] Mar, [facility] [place] [facility] [address] [id number] [place] [address] Mar, [facility] [place] [facility] [address] [id number] [place] [address] Mar, [facility] [place] [facility] [address] [id number] [place] [address] 18 Jan, 2012 [facility] [place] [facility] [id number] [place] [address] 10 Jan, 2012 [facility] [place] [facility] [address] [id number] [place] [address] Jan, [facility] [place] [facility] [address] [id number] [place] [address] 06 Jan, [address] [facility] [address] [id number] [place] [id number] Dec, [facility] [place] [id number] [place] [address] Dec, [facility] [address] [id number] [place] [id number] Dec, [facility] [place] [id number] [place] [address] Dec, [facility] [place] [address] [address] Dec, [facility] [place] [address] [address] Dec, [facility] [place] [address] [address] Nov, [facility] [place] [address] [address] Nov, [facility] [place] [id number] [place] [address] Nov, IMMUNIZATIONS No Known Immunizations SOCIAL HISTORY Never Assessed REASON FOR VISIT PLAN OF CARE VITAL SIGNS Height 62 in 2013-07-08 Weight 336 lbs 2013-07-08 Temperature 98.3 degrees Fahrenheit 2013-07-08 Heart Rate 76 bpm 2013-07-08 Respiratory Rate 20 2013-07-08 Blood pressure systolic 122 mmHg 2013-07-08 Blood pressure diastolic 78 mmHg 2013-07-08 MEDICATIONS Unknown Medications RESULTS No Results PROCEDURES [...]
--- OUTSIDE RECORDS SUMMARY | 2019-11-03 19:25 | XMS REPORT ---
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 Name Role Phone Migration, Doctor Unavailable Unavailable PROBLEMS Type Condition ICD9-CM Code QIW06-CU Code Onset Dates Condition S tatus SNOMED Code Problem Esophageal reflux K21.9 Active 24 5425488 Problem Dyslipidemia E78.5 12 Oct, 2017 Active 3709 75816 Problem Unspecified hypothyroidism E03.9 Act hernesto 31434840 Problem Generalized anxiety disorder F41.1 Apr, 200 8 Active 73242143 Problem Shortness of breath R06.02 Apr, Active 708147531 Problem Pulmonary embolus I26.99 13 Oct, 2011 Active 75804714 Problem Nonintractable migraine G43.009 08 Oct, 2015 Act hernesto 899775980 Problem Pre-diabetes R73.03 Active 3612322 02 Problem Morbid obesity with BMI of 50.0-59.9, adult Z68.43 Active 795775743 Problem Hypothyroidism E03.9 Active 58877 008 Problem Morbid obesity E66.01 Active 76010 6002 Problem Unspecified sleep apnea G47.30 Active 35595367 Problem Personal history of pulmonary embolism Z86.711 Active 479661042 Problem Osteoarthritis of right knee M17.11 13 May, 201 0 Active 297154969 Problem Renal stones N20.0 Active 7973245 7 Problem Coronary artery disease I25.10 Active 64043899 Problem Hyperlipidemia LDL goal <70 E78.5 Ac tive 45461135 Problem Migraine with aura and without status migrainosu s, not intractable G43.109 Active 0253998 ALLERGIES No Information ENCOUNTERS Encounter Location Date Diagnosis [facility] [id number] [place] [address] 07 Jun, 2019 Personal history of pulmonary embolism Z 86.711 [facility] [id number] [place] [address] 07 Jun, 2019 Personal history of pulmonary embolism Z 86.711 [place] [id number] [place] [address] May, [facility] [address] [place] [address] May, 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 [id number] [address] [place] [address] Apr, Non-recurrent acute suppurat hernesto otitis media of both ears without spontaneous rupture of tympanic membranes H66.003 [place] [address] [address] 08 Feb, 2019 Pre-diabetes R73.03 and Hyperlipidemia L DL goal <70 E78.5 [place] [address] [place] [id number] [place] [address] Feb, [place] [address] [address] Feb, [place] [address] [place] [id number] [place] [address] Jan, [place] [address] [address] Jan, [place] [address] [address] 18 Jan, 2019 Encounter for Medicare annual wellness e xam Z00.00 ; Hyperlipidemia LDL goal <70 E78.5 ; Coronary artery disease I25.10 ; Hypothyroidism E03.9 ; Osteoarthritis of right knee M17.11 ; Morbid obesity with BMI of 50.0-59.9, adult Z68.43 and Esophageal reflux K21.9 [place] [address] [address] Jan, Dysuria R30.0 and Hematuria, unspecified type R31.9 [place] [address] [place] [id number] [place] [address] Jan, Hematuria, unspecified type R31.9 [place] [address] [place] [address] [place] [address] Dec, Hematuria, unspecified type R31.9 [facility] [address] [address] Nov, Hematuria, unspecified type R31.[address] [place] [address] Nov, Other microscopic hematuria R31.29 [place] [address] [address] Nov, Vaginal gena B37.3 ; Other microscopi c hematuria R31.29 and Morbid obesity E66.01 [place] [address] [address] Nov, [place] [address] [address] Nov, [facility] N [place] [id number] [address] [place] [address] Nov, UTI symptoms R39.9 and Morbi d obesity E66.01 [place] [address] [address] Nov, [place] [address] [address] September, [place] [address] [address] September, [place] [address] [address] Aug, Right foot pain M79.671 and Morbid obesi ty E66.01 [place] [address] [address] Jul, Right foot pain M79.671 and Morbid obesi ty E66.01 [facility] [address] [facility] [id number] [address] [place] [address] Jul, Injury of right foot, initia l encounter S99.921A and Morbid obesity E66.01 [place] [address] [place] [id number] [place] [address] Jul, Recurrent syncope R55 and Morbid obesity E66.01 [place] [address] [place] [id number] [place] [address] Jul, [place] [address] [address] Jun, Hematuria, unspecified type R31.9 and BM I 50.0-59.9, adult Z68.43 [place] [address] [place] [id number] [place] [address] 07 Jun, 2018 [place] [address] [place] [address] 04 Jun, 2018 prison current use of ant icoagulant Z79.01 [facility] N [facility] [id number] [address] [place] [address] May, Ankle pain, right M25.571 an d BMI 50.0-59.9, adult Z68.43 [place] [address] [address] May, [place] [address] [address] May, [place] [address] [address] Apr, [place] [address] [address] Apr, [place] [address] [address] Apr, [facility] [address] [facility] [id number] [address] [place] [address] Apr, BMI 50.0-59.9, adult Z68.43 and Weakness R53.1 [place] [address] [address] Apr, [facility] [place] [address] [address] Apr, Dysuria R30.0 ; Hematuria R3 1.9 ; Renal lithiasis N20.0 and BMI 50.0-59.9, adult Z68.43 [place] [address] [address] Apr, [place] [address] [address] Apr, [place] [address] [address] Apr, Hypothyroidism E03.9 [place] [address] [address] Apr, Burning with urination R30.0 ; 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, 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 ; Acute bilateral low back pain without sciatica M54.5 and BMI 50.0-59.9, adult Z68.43 [place] [address] [address] Mar, Hypothyroidism E03.9 [place] [address] [address] Feb, [facility] IN [place] [address] [address] 15 Jan, 2018 [place] [address] [address] 07 Jan, 2018 Acute non-recurrent maxillary sinusitis J01.00 and BMI 50.0-59.9, adult Z68.43 [facility] WALK IN [address] [address] 04 Jan, 2018 Congestion of upper respirat ory tract J98.8 and BMI 50.0-59.9, adult Z68.43 [place] [address] [address] Dec, Type 2 diabetes mellitus with diabetic n europathic arthropathy, 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 ; Morbid obesity with BMI of 50.0-59.9, adult Z68.43 ; Hypothyroidism E03.9 ; Coronary artery disease I25.10 ; Hyperlipidemia LDL goal <70 E78.5 ; Right lower quadrant abdominal pain R10.31 and Acute cystitis with hematuria N30.01 [facility] WALK IN [facility] [address] [facility] [id number] [address] [place] [address] Dec, Migraine with aura and witho ut status migrainosus, not intractable G43.109 ; Dehydration symptoms R63.8 and BMI 50.0-59.9, adult Z68.43 [place] [address] [address] Oct, [place] [address] [address] Oct, [place] [address] [address] Oct, [facility] [address] [address] September, [place] [address] [address] September, Type 2 diabetes mellitus with diabetic n europathic arthropathy, 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 ; Hyperlipidemia, unspecified hyperlipidemia type E78.5 ; Personal history of pulmonary embolism Z86.711 ; Coronary artery disease I25.10 and Hypothyroidism E03.9 [facility] [address] [address] September, [place] [address] [address] Aug, Type 2 diabetes mellitus with diabetic [...] without aura and with status migrainosus G43.011 [place] [address] [address] Aug, [place] [address] [address] Aug, [place] [address] [address] Jul, Renal stones N20.0 [facility] [address] [facility] [id number] [address] [place] [address] Jun, Back pain M54.9 ; Kidney sto radha N20.0 and BMI 50.0-59.9, adult Z68.43 [place] [address] [address] Jun, [place] [address] [address] Apr, [place] [address] [address] Apr, [place] [address] [address] Apr, Right foot pain M79.671 ; Acute gout inv olving toe of right foot, 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 and Arthritis M19.90 [place] [address] [address] 06 Apr, 2017 Gastroesophageal reflux disease without esophagitis K21.9 [place] [address] [address] 16 Mar, 2017 Hypothyroidism, unspecified E03.9 [place] [address] [address] 11 Feb, 2017 [place] [address] [address] 25 Jan, 2017 Cervicalgia of unafwcrd-ejxtede-fkcws re gion M54.2 and Persistent headaches R51 [place] [address] [address] 20 Jan, 2017 [place] [address] [address] 12 Jan, 2017 Intractable migraine without aura and wi th status migrainosus G43.011 ; Cervical spine pain M54.2 ; Hyperlipidemia, unspecified hyperlipidemia type E78.5 ; Hypothyroidism E03.9 and Metabolic syndrome E88.81 [place] [address] [address] Jan, Hypothyroidism, unspecified E03.9 [place] [address] [address] Dec, Hypothyroidism, unspecified E03.9 [place] [address] [address] Dec, Hypothyroidism E03.9 [place] [address] [address] Nov, Laceration of left great toe w/o foreign body w/o damage to nail, initial encounter S91.112A [facility] WALK IN [facility] [address] [facility] [id number] [address] [place] [address] Oct, Pain in left knee M25.562 an d Arthritis M19.90 [place] [address] [address] Oct, Hypothyroidism, unspecified E03.9 and Hy perlipidemia, unspecified hyperlipidemia type E78.5 [place] [address] [address] Oct, Gastroesophageal reflux disease without esophagitis K21.9 [place] [address] [address] 14 Oct, 2016 Metabolic syndrome E88.81 ; Personal his tory of pulmonary embolism Z86.711 ; Other specified hypothyroidism E03.8 and Hyperlipidemia, unspecified hyperlipidemia type E78.[address] [address] 13 Oct, 2017 Personal history of pulmonary embolism Z 86.711 ; Dysuria R30.0 ; Metabolic syndrome E88.81 ; Other specified hypothyroidism E03.8 ; Hyperlipidemia, unspecified hyperlipidemia type E78.5 and Morbid obesity with BMI of 50.0-59.9, adult Z68.[address] [address] September, [facility] W[facility] IN [address] [address] September, Wrist pain, left M25.532 and Acute pain of left knee M25.[address] [address] Jul, Dysuria R30.[address] [address] Jul, Dysuria R30.[address] [address] Jul, Left lower quadrant pain R10.[address] [address] Jul, [address] [address] Jul, Coronary artery disease I25.10 ; Family history of diabetes mellitus Z83.3 ; Morbid obesity with BMI of 50.0-59.9, adult Z68.43 ; Metabolic syndrome E88.81 ; Personal history of pulmonary embolism Z86.711 ; Gastroesophageal reflux disease without esophagitis K21.9 ; Hypothyroidism, unspecified E03.9 ; Hyperlipidemia, unspecified hyperlipidemia type E78.5 and Left lower quadrant pain R10.32 [facility] [place] [id number] [place] [address] Jul, [facility] W[facility] IN [address] [address] Jul, Morbid obesity with BMI of 5 0.0-59.9, adult Z68.43 [facility] W[facility] IN [address] [address] Jul, Generalized abdominal pain R 10.84 [facility] IN [address] [address] 02 Jun, 2016 Muscle strain of right upper back, initial encounter S29.012A [facility] W[facility] IN [address] [address] May, Foreign body (FB) in soft ti ssue M79.[address] [address] Mar, Hypothyroidism, unspecified E03.9 and Ar thritis M19.[address] [address] Feb, Coronary artery disease I25.10 ; Morbid obesity with BMI of 50.0-59.9, adult Z68.43 ; Metabolic syndrome E88.81 ; Gastroesophageal reflux disease without esophagitis K21.9 ; Hypothyroidism, unspecified E03.9 ; Personal history of pulmonary embolism Z86.711 and Hyperlipidemia, unspecified hyperlipidemia type E78.[address] [address] Feb, [facility] W[facility] IN [address] [address] Jan, Acute right-sided thoracic b ack pain M54.[address] [address] Jan, Acute pain of left knee M25.[address] [address] Dec, Dysuria R30.0 ; Metabolic syndrome E88.8 1 ; Acute pain of left knee M25.562 ; Acute cystitis with hematuria N30.01 and Acute left eye pain H57.[address] [address] Dec, [place] [address] [address] Dec, [place] [address] [address] Dec, Hypothyroidism, unspecified E03.9 [place] [address] [address] Dec, [place] [address] [address] Nov, Peripheral edema R60.9 and Acute pain of left knee M25.562 [facility] [place] [address] [place] [id number] [place] [address] September, [place] [address] [address] September, Metabolic syndrome E88.81 and Allergy, s ubsequent encounter T78.40XD [facility]ALK IN [place] [address] [facility] [id number] [address] [place] [address] September, Muscle strain T14.8 [place] [address] [address] Aug, Chest pressure R07.89 ; Metabolic syndro me E88.81 ; Morbid obesity with BMI of 50.0-59.9, adult Z68.43 ; Esophageal reflux 530.81 and Shortness of breath R06.02 [place] [address] [address] Aug, [place] [address] [address] Aug, [place] [address] [address] Aug, Hypothyroidism, unspecified E03.9 [place] [address] [address] Aug, Routine health maintenance Z00.00 [facility]ALK IN [place] [address] N [facility] [id number] [address] [place] [address] Aug, [place] [address] [address] 31 Jul, 2015 Routine health maintenance Z00.00 ; Fami ly history of diabetes mellitus Z83.3 ; Family history of cancer Z80.9 and Morbid obesity with BMI of 50.0-59.9, adult Z68.43 [facility] [place] [address] [address] [place] [id number] [address] [place] [address] 28 Jul, 2015 Allergic rhinitis J30.9 and Postnasal drip R09.[address] [address] 18 Jul, 2015 Influenza J11.1 [facility] [address] [address] Jul, Dysuria R30.0 [place] [address] [address] Apr, [address] [address] Mar, Acute upper respiratory infection, unspe cified J06.9 and Hypothyroidism E03.[address] [address] Mar, [place] [address] [address] Feb, Coronary artery disease I25.10 [place] [address] [address] Feb, Left foot pain M79.[address] [address] Jan, UTI (urinary tract infection) 599.[address] [address] Jan, Urinary tract infection, site not specif ied 599.0 [facility] [address] [place] [id number] [place] [address] Jan, Urinary tract infection, site not specif ied 599.0 [facility] [address] [address] Jan, [facility] [address] [address] Dec, Headache 784.0 [facility] [address] [address] Dec, Urinary tract infection, site not specif ied 599.0 [place] [address] [address] Dec, Urinary tract infection, site not specif ied 599.0 [place] [address] [address] Dec, Urinary tract infection, site not specif ied 599.0 [place] [address] [address] Nov, Unspecified sleep apnea 780.57 ; Encount er for long-term (current) use of anticoagulants V58.61 ; Routine general medical examination at health care facility V70.0 and Arthritis of both knees 716.96 [place] [address] [address] September, Cat bite of hand 882.0 and Rectal bleedi ng 569.3 [facility] [address] [place] [id number] [place] [address] Aug, [facility] [address] [address] Aug, [facility] [address] [address] Jul, [facility] [address] [address] Jul, [facility] [address] [place] [address] Jul, [facility] [id number] [place] [address] Jul, [facility] [id number] [place] [address] Jul, [facility] [id number] [place] [address] Jul, [facility] [id number] [place] [address] Jul, [facility] [id number] [place] [address] Jul, [facility] [id number] [place] [address] May, [facility] [id number] [place] [address] May, [facility] [id number] [place] [address] May, [facility] [id number] [place] [address] May, [facility] [id number] [place] [address] May, [facility] [id number] [place] [address] May, [facility] [id number] [place] [address] May, [facility] [id number] [place] [address] Mar, [facility] [id number] [place] [address] Mar, [facility] [id number] [place] [address] Jan, [facility] [id number] [place] [address] Jan, [facility] [address] [id number] [place] [address] 08 Jan, 2013 [facility] [address] [facility] [id number] [place] [address] Jan, 2013 [facility] [address] [facility] [id number] [place] [address] Jan, 2013 [facility] [id number] [place] [address] Jan, 2013 [facility] [address] [facility] [id number] [place] [address] Dec, [facility] [address] [id number] [place] [address] Dec, [facility] [id number] [place] [address] Dec, [facility] [id number] [place] [address] Dec, [facility] [id number] [place] [address] Dec, [facility] [id number] [place] [address] Dec, [facility] [id number] [place] [address] Dec, [facility] [id number] [place] [address] Dec, [facility] [id number] [place] [address] Dec, [facility] [address] [facility] [id number] [place] [address] Dec, [facility] [id number] [place] [address] Nov, [facility] [id number] [place] [address] Nov, [facility] [id number] [place] [address] September, [facility] [address] [facility] [id number] [place] [address] September, [facility] [address] [facility] [id number] [facility] [place] [address] September, [facility] [id number] [place] [address] September, [facility] [id number] [place] [address] Aug, [facility] [address] [facility] [id number] [place] [address] Aug, [facility] [address] [id number] [place] [address] Aug, [facility] [place] [facility] [address] [id number] [place] [address] Aug, [facility] [place] [facility] [address] [facility] [id number] [place] [address] Aug, [facility] [place] [facility] [address] [id number] [place] [address] Aug, [facility] [place] [facility] [address] [id number] [place] [address] Aug, [facility] [place] [facility] [address] [id number] [place] [address] Aug, [facility] [place] [facility] [address] [facility] [id number] [place] [address] Aug, [facility] [place] [facility] [address] [facility] [id number] [place] [address] Aug, [facility] [place] [facility] [address] [id number] [place] [address] Aug, [facility] [place] [facility] [address] [id number] [place] [address] Aug, [facility] [place] [facility] [address] [facility] [id number] [place] [address] Jul, [facility] [place] [facility] [address] [id number] [place] [address] Jul, [facility] [place] [facility] [address] [facility] [id number] [place] [address] Jul, [facility] [place] [facility] [address] [id number] [place] [address] Jul, [facility] [place] [facility] [address] [id number] [place] [address] Jul, [facility] [place] [facility] [address] [id number] [place] [address] Jul, [facility] [place] [facility] [address] [id number] [place] [address] Jul, [facility] [place] [facility] [address] [id number] [place] [address] Jul, [facility] [place] [facility] [address] [id number] [place] [address] Jul, [facility] [place] [facility] [address] [id number] [place] [address] Jul, [facility] [place] [facility] [address] [id number] [place] [address] Jun, [facility] [place] [facility] [address] [id number] [place] [address] Jun, [facility] [place] [facility] [address] [facility] [id number] [place] [address] Jun, [facility] [place] [facility] [address] [id number] [place] [address] Jun, [facility] [place] [facility] [address] [facility] [id number] [place] [address] Jun, [facility] [place] [facility] [address] [facility] [id number] [place] [address] Jun, [facility] [place] [facility] [address] [id number] [place] [address] Jun, [facility] [place] [facility] [address] [id number] [place] [address] Jun, [facility] [address] [facility] [id number] [place] [address] Jun, [facility] [address] [facility] [id number] [facility] [place] [address] Jun, [facility] [address] [facility] [id number] [place] [address] Jun, [facility] [address] [facility] [id number] [place] [address] Jun, [facility] [address] [facility] [id number] [place] [address] May, [facility] [address] [id number] [place] [address] May, [facility] [address] [id number] [place] [address] May, [facility] [address] [id number] [place] [address] May, [facility] [address] [id number] [place] [address] May, [facility] [address] [id number] [place] [address] May, [facility] [address] [id number] [place] [address] May, [facility] [address] [id number] [place] [address] May, [facility] [address] [id number] [place] [address] May, [facility] [address] [id number] [place] [address] May, [facility] [address] [id number] [place] [address] May, [facility] [address] [id number] [place] [address] May, [facility] [address] [id number] [place] [address] May, [facility] [address] [id number] [place] [address] May, [facility] [address] [id number] [place] [address] May, [facility] [address] [id number] [place] [address] Apr, [facility] [address] [id number] [place] [address] Apr, [facility] [address] [id number] [place] [address] Apr, [facility] [address] [id number] [place] [address] Apr, [facility] [address] [id number] [place] [address] Mar, [facility] [address] [id number] [place] [address] Mar, [facility] [address] [id number] [place] [address] Mar, [facility] [address] [id number] [place] [address] Mar, [facility] [address] [id number] [place] [address] Mar, [facility] [address] [id number] [place] [address] Mar, [facility] [address] [id number] [place] [address] Mar, [facility] [id number] [place] [address] Mar, [facility] [address] [id number] [place] [address] Mar, [facility] [address] [id number] [place] [address] Mar, [facility] [address] [id number] [place] [address] Mar, 2012 [facility] [address] [id number] [place] [address] Mar, [facility] [address] [id number] [place] [address] Feb, [facility] [address] [id number] [place] [address] 18 Jan, 2013 [facility] [address] [facility] [id number] [place] [address] 17 Jan, 2012 [facility] [address] [id number] [place] [address] Jan, [facility] [address] [id number] [place] [address] Jan, [facility] [address] [id number] [place] [address] Jan, [facility] [address] [id number] [place] [address] Dec, [facility] [address] [id number] [place] [address] Dec, [facility] [address] [id number] [place] [address] Dec, [facility] [address] [id number] [place] [address] 16 Dec, 2012 [facility] [address] [id number] [place] [address] Dec, [facility] [address] [id number] [place] [address] Dec, [facility] [address] [id number] [place] [address] Dec, [facility] [address] [id number] [place] [address] Dec, [facility] [address] [id number] [place] [address] Nov, [facility] [address] [id number] [place] [address] Nov, [facility] [address] [id number] [place] [address] Nov, [facility] [address] [id number] [place] [address] Nov, [facility] [address] [id number] [place] [address] Nov, [facility] [address] [id number] [place] [address] Nov, [facility] [address] [id number] [place] [address] Oct, [facility] [address] [id number] [id number] Oct, [facility] [address] [id number] [id number] Oct, [facility] [address] [id number] [id number] Oct, [facility] [address] [id number] [id number] Oct, [facility] [address] [id number] [place] [address] Oct, [facility] [address] [id number] [place] [address] Oct, [facility] [address] [id number] [place] [address] Oct, [facility] [address] [id number] [place] [address] Oct, [facility] [address] [id number] [place] [address] Oct, [facility] [address] [id number] [place] [address] Oct, [facility] [address] [id number] [place] [address] September, [facility] [address] [facility] [id number] [place] [address] Aug, [facility] [address] [id number] [place] [address] Aug, [facility] [address] [id number] [place] [address] Aug, [facility] [address] [id number] [place] [address] Aug, [facility] [address] [facility] [id number] [place] [address] Jul, [facility] [address] [id number] [place] [address] Jul, [facility] [address] [id number] [place] [address] Jul, [facility] [address] [id number] [place] [address] Jul, [facility] [address] [id number] [place] [address] Jul, [facility] [address] [id number] [place] [address] Jun, [facility] [address] [id number] [place] [address] Jun, [facility] [address] [id number] [place] [address] Jun, [facility] [address] [id number] [place] [address] May, [facility] [address] [id number] [place] [address] May, [facility] [address] [id number] [place] [address] May, [facility] [address] [id number] [place] [address] May, [facility] [address] [id number] [place] [address] May, [facility] [address] [id number] [place] [address] May, [facility] [address] [id number] [place] [address] Apr, [facility] [address] [id number] [place] [address] 18 Apr, 2012 [facility] [address] [id number] [place] [address] Apr, [facility] [address] [id number] [place] [address] Apr, [facility] [address] [id number] [place] [address] Apr, [facility] [address] [id number] [place] [address] Apr, [facility] [address] [id number] [place] [address] Apr, [facility] [address] [id number] [place] [address] Mar, [facility] [address] [id number] [place] [address] Mar, [facility] [address] [id number] [place] [address] Mar, [facility] [address] [id number] [place] [address] Mar, [facility] [address] [id number] [place] [address] 18 Jan, 2012 [facility] [id number] [place] [address] 10 Jan, 2012 [facility] [address] [id number] [place] [address] Jan, [facility] [address] [id number] [place] [address] 06 Jan, [address] [facility] [address] [id number] [place] [id number] Dec, [facility] [id number] [place] [address] Dec, [facility] [address] [id number] [place] [id number] Dec, [facility] [address] [address] Dec, [facility] [address] [address] Dec, [facility] [address] [address] Dec, [facility] [address] [address] Nov, [facility] [address] [address] Nov, [facility] [address] [address] Nov, IMMUNIZATIONS No Known Immunizations SOCIAL HISTORY [...] placed 08/19/2017 Hospitalization History Syncope- [facility] 12/2017 Hospitalization History heart cath ( 06/23/18-06/25/2018) Hospitalization History heart problem, overnight stay 9
--- OUTSIDE RECORDS SUMMARY | 2019-11-03 19:26 | XMS REPORT ---
Author Author Anca Lucero Doctor Organization [facility] Address Unknown Phone Unavailable Care Team Providers Care Biofuels Operations Manager Name Role Phone Migration, Doctor Unavailable Unavailable PROBLEMS Type Condition ICD9-CM Code HRM49-MA Code Onset Dates Condition S tatus SNOMED Code Problem Esophageal reflux K21.9 Active 24 2625971 Problem Dyslipidemia E78.5 12 Oct, 2017 Active 3709 28031 Problem Unspecified hypothyroidism E03.9 Act hernesto 82412012 Problem Generalized anxiety disorder F41.1 Apr, 200 8 Active 64767010 Problem Shortness of breath R06.02 Apr, Active 487033080 Problem Pulmonary embolus I26.99 13 Oct, 2011 Active 78280342 Problem Nonintractable migraine G43.009 Oct, Act hernesto 463495516 Problem Pre-diabetes R73.03 Active 7228158 02 Problem Morbid obesity with BMI of 50.0-59.9, adult Z68.43 Active 461753381 Problem Hypothyroidism E03.9 Active 82750 008 Problem Morbid obesity E66.01 Active 47073 6002 Problem Unspecified sleep apnea G47.30 Active 83386492 Problem Personal history of pulmonary embolism Z86.711 Active 553768570 Problem Osteoarthritis of right knee M17.11 13 May, 201 0 Active 406200643 Problem Renal stones N20.0 Active 1135737 7 Problem Coronary artery disease I25.10 Active 62897294 Problem Hyperlipidemia LDL goal <70 E78.5 Ac tive 92570346 Problem Migraine with aura and without status migrainosu s, not intractable G43.109 Active 3712271 ALLERGIES No Information ENCOUNTERS Encounter Location Date Diagnosis [facility] [address] [id number] [place] [address] 07 Jun, 2019 Personal history of pulmonary embolism Z 86.711 [facility] [address] [facility] [place] [address] 07 Jun, 2019 Personal history of pulmonary embolism Z 86.711 [place] [address] [id number] [place] [address] May, [facility] [address] [place] [address] May, 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 and Dizziness R42 [facility] [address] [facility] [id number] [address] [place] [address] Apr, Non-recurrent acute suppurat hernesto otitis media of both ears without spontaneous rupture of tympanic membranes H66.003 [place] [address] [address] 08 Feb, 2019 Pre-diabetes R73.03 and Hyperlipidemia L DL goal <70 E78.5 [place] [address] [place] [id number] [place] [address] Feb, [place] [address] [address] Feb, [place] [address] [place] [id number] [place] [address] Jan, [place] [address] [address] Jan, [place] [address] [address] 18 Jan, 2019 Encounter for Medicare annual wellness e xam Z00.00 ; Hyperlipidemia LDL goal <70 E78.5 ; Coronary artery disease I25.10 ; Hypothyroidism E03.9 ; Osteoarthritis of right knee M17.11 ; Morbid obesity with BMI of 50.0-59.9, adult Z68.43 and Esophageal reflux K21.9 [place] [address] [address] Jan, Dysuria R30.0 and Hematuria, unspecified type R31.9 [place] [address] [place] [id number] [place] [address] Jan, Hematuria, unspecified type R31.9 [place] [address] [place] [address] [place] [address] Dec, Hematuria, unspecified type R31.9 [facility] [address] [address] Nov, Hematuria, unspecified type R31.[address] [place] [address] Nov, Other microscopic hematuria R31.29 [place] [address] [address] Nov, Vaginal gena B37.3 ; Other microscopi c hematuria R31.29 and Morbid obesity E66.01 [place] [address] [address] Nov, [place] [address] [address] Nov, [facility] [place] [id number] [address] [place] [address] Nov, UTI symptoms R39.9 and Morbi d obesity E66.01 [place] [address] [address] Nov, [place] [address] [address] September, [place] [address] [address] September, [place] [address] [address] Aug, Right foot pain M79.671 and Morbid obesi ty E66.01 [place] [address] [address] Jul, Right foot pain M79.671 and Morbid obesi ty E66.01 [facility] [address] [facility] [id number] [address] [place] [address] Jul, Injury of right foot, initia l encounter S99.921A and Morbid obesity E66.01 [place] [address] [place] [id number] [place] [address] Jul, Recurrent syncope R55 and Morbid obesity E66.01 [place] [address] [place] [id number] [place] [address] Jul, [place] [address] [address] Jun, Hematuria, unspecified type R31.9 and BM I 50.0-59.9, adult Z68.43 [place] [address] [place] [id number] [place] [address] 07 Jun, 2018 [place] [address] [place] [address] 04 Jun, 2018 detention current use of ant icoagulant Z79.01 [facility] N [facility] [id number] [address] [place] [address] May, Ankle pain, right M25.571 an d BMI 50.0-59.9, adult Z68.43 [place] [address] [address] May, [place] [address] [address] May, [place] [address] [address] Apr, [place] [address] [address] Apr, [place] [address] [address] Apr, [facility] [address] [facility] [id number] [address] [place] [address] Apr, BMI 50.0-59.9, adult Z68.43 and Weakness R53.1 [place] [address] [address] Apr, [facility] [place] [address] [address] Apr, Dysuria R30.0 ; Hematuria R3 1.9 ; Renal lithiasis N20.0 and BMI 50.0-59.9, adult Z68.43 [place] [address] [address] Apr, [place] [address] [address] Apr, [place] [address] [address] Apr, Hypothyroidism E03.9 [place] [address] [address] Apr, Burning with urination R30.0 ; 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, 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 ; Acute bilateral low back pain without sciatica M54.5 and BMI 50.0-59.9, adult Z68.43 [place] [address] [address] Mar, Hypothyroidism E03.9 [place] [address] [address] Feb, [facility] [place] [address] [address] 15 Jan, 2018 [place] [address] [address] 07 Jan, 2018 Acute non-recurrent maxillary sinusitis J01.00 and BMI 50.0-59.9, adult Z68.43 [facility] [address] [address] 04 Jan, 2018 Congestion of upper respirat ory tract J98.8 and BMI 50.0-59.9, adult Z68.43 [place] [address] [address] Dec, Type 2 diabetes mellitus with diabetic n europathic arthropathy, 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 ; Morbid obesity with BMI of 50.0-59.9, adult Z68.43 ; Hypothyroidism E03.9 ; Coronary artery disease I25.10 ; Hyperlipidemia LDL goal <70 E78.5 ; Right lower quadrant abdominal pain R10.31 and Acute cystitis with hematuria N30.01 [facility] W[facility] IN [facility] [address] [facility] [id number] [address] [place] [address] Dec, Migraine with aura and witho ut status migrainosus, not intractable G43.109 ; Dehydration symptoms R63.8 and BMI 50.0-59.9, adult Z68.43 [place] [address] [address] Oct, [place] [address] [address] Oct, [place] [address] [address] Oct, [facility] [address] [address] September, [place] [address] [address] September, Type 2 diabetes mellitus with diabetic n europathic arthropathy, 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 ; Hyperlipidemia, unspecified hyperlipidemia type E78.5 ; Personal history of pulmonary embolism Z86.711 ; Coronary artery disease I25.10 and Hypothyroidism E03.9 [facility] [address] [address] September, [place] [address] [address] Aug, Type 2 diabetes mellitus with diabetic [...] and with status migrainosus G43.011 [place] [address] [address] Aug, [place] [address] [address] Aug, [place] [address] [address] Jul, Renal stones N20.0 [facility] [address] [facility] [id number] [address] [place] [address] Jun, Back pain M54.9 ; Kidney sto radha N20.0 and BMI 50.0-59.9, adult Z68.43 [place] [address] [address] Jun, [place] [address] [address] Apr, [place] [address] [address] Apr, [place] [address] [address] Apr, Right foot pain M79.671 ; Acute gout inv olving toe of right foot, 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 and Arthritis M19.90 [place] [address] [address] 06 Apr, 2017 Gastroesophageal reflux disease without esophagitis K21.9 [place] [address] [address] 16 Mar, 2017 Hypothyroidism, unspecified E03.9 [place] [address] [address] 11 Feb, 2017 [place] [address] [address] 25 Jan, 2017 Cervicalgia of qlngzgrn-sudnhwp-drxqa re gion M54.2 and Persistent headaches R51 [place] [address] [address] 20 Jan, 2017 [place] [address] [address] 12 Jan, 2017 Intractable migraine without aura and wi th status migrainosus G43.011 ; Cervical spine pain M54.2 ; Hyperlipidemia, unspecified hyperlipidemia type E78.5 ; Hypothyroidism E03.9 and Metabolic syndrome E88.81 [place] [address] [address] Jan, Hypothyroidism, unspecified E03.9 [place] [address] [address] Dec, Hypothyroidism, unspecified E03.9 [place] [address] [address] Dec, Hypothyroidism E03.9 [place] [address] [address] Nov, Laceration of left great toe w/o foreign body w/o damage to nail, initial encounter S91.112A [facility] IN [facility] [address] [facility] [id number] [address] [place] [address] Oct, Pain in left knee M25.562 an d Arthritis M19.90 [place] [address] [address] Oct, Hypothyroidism, unspecified E03.9 and Hy perlipidemia, unspecified hyperlipidemia type E78.5 [place] [address] [address] Oct, Gastroesophageal reflux disease without esophagitis K21.9 [place] [address] [address] 14 Oct, 2016 Metabolic syndrome E88.81 ; Personal his tory of pulmonary embolism Z86.711 ; Other specified hypothyroidism E03.8 and Hyperlipidemia, unspecified hyperlipidemia type E78.[address] [address] 13 Oct, 2017 Personal history of pulmonary embolism Z 86.711 ; Dysuria R30.0 ; Metabolic syndrome E88.81 ; Other specified hypothyroidism E03.8 ; Hyperlipidemia, unspecified hyperlipidemia type E78.5 and Morbid obesity with BMI of 50.0-59.9, adult Z68.[address] [address] September, [facility] [address] [address] September, Wrist pain, left M25.532 and Acute pain of left knee M25.[address] [address] Jul, Dysuria R30.[address] [address] Jul, Dysuria R30.[address] [address] Jul, Left lower quadrant pain R10.[address] [address] Jul, [address] [address] Jul, Coronary artery disease I25.10 ; Family history of diabetes mellitus Z83.3 ; Morbid obesity with BMI of 50.0-59.9, adult Z68.43 ; Metabolic syndrome E88.81 ; Personal history of pulmonary embolism Z86.711 ; Gastroesophageal reflux disease without esophagitis K21.9 ; Hypothyroidism, unspecified E03.9 ; Hyperlipidemia, unspecified hyperlipidemia type E78.5 and Left lower quadrant pain R10.32 [facility] IN [place] [id number] [address] [place] [address] Jul, [facility] [address] [address] Jul, Morbid obesity with BMI of 5 0.0-59.9, adult Z68.43 [facility] [address] [address] Jul, Generalized abdominal pain R 10.84 [facility] [address] [address] 02 Jun, 2016 Muscle strain of right upper back, initial encounter S29.012A [facility] [address] [address] May, Foreign body (FB) in soft ti ssue M79.[address] [address] Mar, Hypothyroidism, unspecified E03.9 and Ar thritis M19.[address] [address] Feb, Coronary artery disease I25.10 ; Morbid obesity with BMI of 50.0-59.9, adult Z68.43 ; Metabolic syndrome E88.81 ; Gastroesophageal reflux disease without esophagitis K21.9 ; Hypothyroidism, unspecified E03.9 ; Personal history of pulmonary embolism Z86.711 and Hyperlipidemia, unspecified hyperlipidemia type E78.[address] [address] Feb, [facility] [address] [address] Jan, Acute right-sided thoracic b ack pain M54.[address] [address] Jan, Acute pain of left knee M25.[address] [address] Dec, Dysuria R30.0 ; Metabolic syndrome E88.8 1 ; Acute pain of left knee M25.562 ; Acute cystitis with hematuria N30.01 and Acute left eye pain H57.[address] [address] Dec, [place] [address] [address] Dec, [place] [address] [address] Dec, Hypothyroidism, unspecified E03.9 [place] [address] [address] Dec, [place] [address] [address] Nov, Peripheral edema R60.9 and Acute pain of left knee M25.562 [facility] [place] [address] [place] [id number] [place] [address] September, [place] [address] [address] September, Metabolic syndrome E88.81 and Allergy, s ubsequent encounter T78.40XD [facility] [place] [address] [facility] [id number] [address] [place] [address] September, Muscle strain T14.8 [place] [address] [address] Aug, Chest pressure R07.89 ; Metabolic syndro me E88.81 ; Morbid obesity with BMI of 50.0-59.9, adult Z68.43 ; Esophageal reflux 530.81 and Shortness of breath R06.02 [place] [address] [address] Aug, [place] [address] [address] Aug, [place] [address] [address] Aug, Hypothyroidism, unspecified E03.9 [place] [address] [address] Aug, Routine health maintenance Z00.00 [facility] [place] [address] [facility] [id number] [address] [place] [address] Aug, [place] [address] [address] 31 Jul, 2015 Routine health maintenance Z00.00 ; Fami ly history of diabetes mellitus Z83.3 ; Family history of cancer Z80.9 and Morbid obesity with BMI of 50.0-59.9, adult Z68.43 [facility] [place] [address] [place] [id number] [address] [place] [address] 28 Jul, 2015 Allergic rhinitis J30.9 and Postnasal drip R09.[address] [address] 18 Jul, 2015 Influenza J11.1 [facility] [place] [address] [address] Jul, Dysuria R30.0 [place] [address] [address] Apr, [address] [address] Mar, Acute upper respiratory infection, unspe cified J06.9 and Hypothyroidism E03.[address] [address] Mar, [place] [address] [address] Feb, Coronary artery disease I25.10 [place] [address] [address] Feb, Left foot pain M79.[address] [address] Jan, UTI (urinary tract infection) 599.[address] [address] Jan, Urinary tract infection, site not specif ied 599.0 [facility] [address] [place] [id number] [place] [address] Jan, Urinary tract infection, site not specif ied 599.0 [facility] [address] [address] Jan, [facility] [address] [address] Dec, Headache 784.0 [facility] [address] [address] Dec, Urinary tract infection, site not specif ied 599.0 [place] [address] [address] Dec, Urinary tract infection, site not specif ied 599.0 [place] [address] [address] Dec, Urinary tract infection, site not specif ied 599.0 [place] [address] [address] Nov, Unspecified sleep apnea 780.57 ; Encount er for long-term (current) use of anticoagulants V58.61 ; Routine general medical examination at health care facility V70.0 and Arthritis of both knees 716.96 [place] [address] [address] September, Cat bite of hand 882.0 and Rectal bleedi ng 569.3 [facility] [address] [place] [id number] [place] [address] Aug, [facility] [address] [address] Aug, [facility] [address] [address] Jul, [facility] [address] [address] Jul, [facility] [address] [place] [address] Jul, [facility] [address] [id number] [place] [address] Jul, [facility] [address] [id number] [place] [address] Jul, [facility] [address] [id number] [place] [address] Jul, [facility] [address] [id number] [place] [address] Jul, [facility] [address] [id number] [place] [address] Jul, [facility] [address] [id number] [place] [address] May, [facility] [address] [id number] [place] [address] May, [facility] [address] [id number] [place] [address] May, [facility] [address] [id number] [place] [address] May, [facility] [address] [id number] [place] [address] May, [facility] [address] [id number] [place] [address] May, [facility] [address] [id number] [place] [address] May, [facility] [address] [id number] [place] [address] Mar, [facility] [address] [id number] [place] [address] Mar, [facility] [address] [id number] [place] [address] Jan, [facility] [address] [id number] [place] [address] Jan, [facility] [address] [id number] [place] [address] 08 Jan, 2013 [facility] [address] [facility] [id number] [place] [address] Jan, 2013 [facility] [address] [facility] [id number] [place] [address] Jan, 2013 [facility] [address] [id number] [place] [address] Jan, 2013 [facility] [address] [facility] [id number] [place] [address] Dec, [facility] [address] [id number] [place] [address] Dec, [facility] [address] [id number] [place] [address] Dec, [facility] [address] [id number] [place] [address] Dec, [facility] [address] [id number] [place] [address] Dec, [facility] [address] [id number] [place] [address] Dec, [facility] [address] [id number] [place] [address] Dec, [facility] [address] [id number] [place] [address] Dec, [facility] [address] [id number] [place] [address] Dec, [facility] [address] [facility] [id number] [place] [address] Dec, [facility] [address] [id number] [place] [address] Nov, [facility] [address] [id number] [place] [address] Nov, [facility] [address] [id number] [place] [address] September, [facility] [address] [facility] [id number] [place] [address] September, [facility] [address] [facility] [id number] [facility] [address] September, [facility] [address] [id number] [place] [address] September, [facility] [address] [id number] [place] [address] Aug, [facility] [address] [facility] [id number] [place] [address] Aug, [facility] [place] [facility] [address] [id number] [place] [address] Aug, [facility] [place] [facility] [address] [id number] [place] [address] Aug, [facility] [place] [facility] [address] [id number] [place] [address] Aug, [facility] [place] [facility] [address] [id number] [place] [address] Aug, [facility] [place] [facility] [address] [id number] [place] [address] Aug, [facility] [place] [facility] [address] [id number] [place] [address] Aug, [facility] [place] [facility] [address] [id number] [place] [address] Aug, [facility] [place] [facility] [address] [facility] [id number] [place] [address] Aug, [facility] [place] [facility] [address] [id number] [place] [address] Aug, [facility] [place] [facility] [address] [id number] [place] [address] Aug, [facility] [place] [facility] [address] [id number] [place] [address] Jul, [facility] [place] [facility] [address] [id number] [place] [address] Jul, [facility] [place] [facility] [address] [facility] [id number] [place] [address] Jul, [facility] [place] [facility] [address] [id number] [place] [address] Jul, [facility] [place] [facility] [address] [id number] [place] [address] Jul, [facility] [place] [facility] [address] [id number] [place] [address] Jul, [facility] [place] [facility] [address] [id number] [place] [address] Jul, [facility] [place] [facility] [address] [id number] [place] [address] Jul, [facility] [place] [facility] [address] [id number] [place] [address] Jul, [facility] [place] [facility] [address] [id number] [place] [address] Jul, [facility] [place] [facility] [address] [id number] [place] [address] Jun, [facility] [place] [facility] [address] [id number] [place] [address] Jun, [facility] [place] [facility] [address] [id number] [place] [address] Jun, [facility] [place] [facility] [address] [id number] [place] [address] Jun, [facility] [place] [facility] [address] [id number] [place] [address] Jun, [facility] [address] [id number] [place] [address] Jun, [facility] [address] [id number] [place] [address] Jun, [facility] [address] [id number] [place] [address] Jun, [facility] [address] [facility] [id number] [place] [address] Jun, [facility] [address] [facility] [id number] [facility] [address] Jun, [facility] [address] [facility] [id number] [place] [address] Jun, [facility] [address] [facility] [id number] [place] [address] Jun, [facility] [address] [facility] [id number] [place] [address] May, [facility] [address] [id number] [place] [address] May, [facility] [address] [id number] [place] [address] May, [facility] [address] [id number] [place] [address] May, [facility] [address] [id number] [place] [address] May, [facility] [address] [id number] [place] [address] May, [facility] [address] [id number] [place] [address] May, [facility] [address] [id number] [place] [address] May, [facility] [address] [id number] [place] [address] May, [facility] [address] [id number] [place] [address] May, [facility] [address] [id number] [place] [address] May, [facility] [address] [id number] [place] [address] May, [facility] [address] [id number] [place] [address] May, [facility] [address] [id number] [place] [address] May, [facility] [address] [id number] [place] [address] May, [facility] [address] [id number] [place] [address] Apr, [facility] [address] [id number] [place] [address] Apr, [facility] [address] [id number] [place] [address] Apr, [facility] [address] [id number] [place] [address] Apr, [facility] [address] [id number] [place] [address] Mar, [facility] [address] [id number] [place] [address] Mar, [facility] [address] [id number] [place] [address] Mar, [facility] [address] [id number] [place] [address] Mar, [facility] [address] [id number] [place] [address] Mar, [facility] [address] [id number] [place] [address] Mar, [facility] [address] [id number] [place] [address] Mar, [facility] [id number] [place] [address] Mar, [facility] [address] [id number] [place] [address] Mar, [facility] [address] [id number] [place] [address] Mar, [facility] [address] [id number] [place] [address] Mar, 2012 [facility] [address] [id number] [place] [address] Mar, [facility] [address] [id number] [place] [address] Feb, [facility] [address] [id number] [place] [address] 18 Jan, 2013 [facility] [address] [facility] [id number] [place] [address] 17 Jan, 2012 [facility] [address] [id number] [place] [address] Jan, [facility] [address] [id number] [place] [address] Jan, [facility] [address] [id number] [place] [address] Jan, [facility] [address] [id number] [place] [address] Dec, [facility] [address] [id number] [place] [address] Dec, [facility] [address] [id number] [place] [address] Dec, [facility] [address] [id number] [place] [address] 16 Dec, 2012 [facility] [address] [id number] [place] [address] Dec, [facility] [address] [id number] [place] [address] Dec, [facility] [address] [id number] [place] [address] Dec, [facility] [address] [id number] [place] [address] Dec, [facility] [address] [id number] [place] [address] Nov, [facility] [address] [id number] [place] [address] Nov, [facility] [address] [id number] [place] [address] Nov, [facility] [address] [id number] [place] [address] Nov, [facility] [address] [id number] [place] [address] Nov, [facility] [address] [id number] [place] [address] Nov, [facility] [address] [id number] [place] [address] Oct, [facility] [address] [facility] [id number] Oct, [facility] [address] [facility] [id number] Oct, [facility] [address] [facility] [id number] Oct, [facility] [address] [facility] [id number] Oct, [facility] [address] [id number] [place] [address] Oct, [facility] [address] [id number] [place] [address] Oct, [facility] [address] [id number] [place] [address] Oct, [facility] [address] [id number] [place] [address] Oct, [facility] [address] [id number] [place] [address] Oct, [facility] [address] [id number] [place] [address] Oct, [facility] [address] [id number] [place] [address] September, [facility] [address] [facility] [id number] [place] [address] Aug, [facility] [address] [id number] [place] [address] Aug, [facility] [address] [id number] [place] [address] Aug, [facility] [address] [id number] [place] [address] Aug, [facility] [address] [facility] [id number] [place] [address] Jul, [facility] [address] [id number] [place] [address] Jul, [facility] [address] [id number] [place] [address] Jul, [facility] [address] [id number] [place] [address] Jul, [facility] [address] [id number] [place] [address] Jul, [facility] [address] [id number] [place] [address] Jun, [facility] [address] [id number] [place] [address] Jun, [facility] [address] [id number] [place] [address] Jun, [facility] [address] [id number] [place] [address] May, [facility] [address] [id number] [place] [address] May, [facility] [address] [id number] [place] [address] May, [facility] [address] [id number] [place] [address] May, [facility] [address] [id number] [place] [address] May, [facility] [address] [id number] [place] [address] May, [facility] [address] [id number] [place] [address] Apr, [facility] [address] [id number] [place] [address] 18 Apr, 2012 [facility] [address] [id number] [place] [address] Apr, [facility] [address] [id number] [place] [address] Apr, [facility] [address] [id number] [place] [address] Apr, [facility] [address] [id number] [place] [address] Apr, [facility] [address] [id number] [place] [address] Apr, [facility] [address] [id number] [place] [address] Mar, [facility] [address] [id number] [place] [address] Mar, [facility] [address] [id number] [place] [address] Mar, [facility] [address] [id number] [place] [address] Mar, [facility] [address] [id number] [place] [address] 18 Jan, 2012 [facility] [id number] [place] [address] 10 Jan, 2012 [facility] [address] [id number] [place] [address] Jan, [facility] [address] [id number] [place] [address] 06 Jan, [address] [facility] [address] [id number] [place] [id number] Dec, [facility] [id number] [place] [address] Dec, [facility] [address] 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 Melara Medical History [...] Stent placed 08/19/2017 Hospitalization History Syncope- [facility] 12/2017 Hospitalization History heart cath ( 06/23/18-06/25/2018) Hospitalization History heart problem, overnight stay 9
--- OUTSIDE RECORDS SUMMARY | 2019-11-03 19:26 | XMS REPORT ---
Author Author Anca Lucero Doctor Organization [facility] Address Unknown Phone Unavailable Care Team Providers Care Electronic Court Recorder Name Role Phone Migration, Doctor Unavailable Unavailable PROBLEMS Type Condition ICD9-CM Code BFM12-DA Code Onset Dates Condition S tatus SNOMED Code Problem Esophageal reflux K21.9 Active 24 5862379 Problem Dyslipidemia E78.5 12 Oct, 2017 Active 3709 34369 Problem Unspecified hypothyroidism E03.9 Act hernesto 53066533 Problem Generalized anxiety disorder F41.1 Apr, 200 8 Active 51308397 Problem Shortness of breath R06.02 Apr, Active 355069810 Problem Pulmonary embolus I26.99 13 Oct, 2011 Active 15239911 Problem Nonintractable migraine G43.009 08 Oct, 2015 Act hernesto 742561829 Problem Pre-diabetes R73.03 Active 8528723 02 Problem Morbid obesity with BMI of 50.0-59.9, adult Z68.43 Active 765642226 Problem Hypothyroidism E03.9 Active 18623 008 Problem Morbid obesity E66.01 Active 23859 6002 Problem Unspecified sleep apnea G47.30 Active 94709084 Problem Personal history of pulmonary embolism Z86.711 Active 098112393 Problem Osteoarthritis of right knee M17.11 13 May, 201 0 Active 726662341 Problem Renal stones N20.0 Active 7571897 7 Problem Coronary artery disease I25.10 Active 44692694 Problem Hyperlipidemia LDL goal <70 E78.5 Ac tive 84776416 Problem Migraine with aura and without status migrainosu s, not intractable G43.109 Active 1767322 ALLERGIES No Information ENCOUNTERS Encounter Location Date Diagnosis [facility] [id number] [place] [address] 07 Jun, 2019 Personal history of pulmonary embolism Z 86.711 [facility] [id number] [place] [address] 07 Jun, 2019 Personal history of pulmonary embolism Z 86.711 [place] [address] [id number] [place] [address] May, [facility] [place] [facility] [address] [place] [address] May, 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 and Dizziness R42 [facility] [address] [facility] [id number] [address] [place] [address] Apr, Non-recurrent acute suppurat hernesto otitis media of both ears without spontaneous rupture of tympanic membranes H66.003 [place] [address] [address] 08 Feb, 2019 Pre-diabetes R73.03 and Hyperlipidemia L DL goal <70 E78.5 [place] [address] [place] [id number] [place] [address] Feb, [place] [address] [address] Feb, [place] [address] [place] [id number] [place] [address] Jan, [place] [address] [address] Jan, [place] [address] [address] 18 Jan, 2019 Encounter for Medicare annual wellness e xam Z00.00 ; Hyperlipidemia LDL goal <70 E78.5 ; Coronary artery disease I25.10 ; Hypothyroidism E03.9 ; Osteoarthritis of right knee M17.11 ; Morbid obesity with BMI of 50.0-59.9, adult Z68.43 and Esophageal reflux K21.9 [place] [address] [address] Jan, Dysuria R30.0 and Hematuria, unspecified type R31.9 [place] [address] [place] [id number] [place] [address] Jan, Hematuria, unspecified type R31.9 [place] [address] [place] [address] [place] [address] Dec, Hematuria, unspecified type R31.9 [facility] [address] [address] Nov, Hematuria, unspecified type R31.[address] [place] [address] Nov, Other microscopic hematuria R31.29 [place] [address] [address] Nov, Vaginal gena B37.3 ; Other microscopi c hematuria R31.29 and Morbid obesity E66.01 [place] [address] [address] Nov, [place] [address] [address] Nov, [facility] [address] [place] [id number] [address] [place] [address] Nov, UTI symptoms R39.9 and Morbi d obesity E66.01 [place] [address] [address] Nov, [place] [address] [address] September, [place] [address] [address] September, [place] [address] [address] Aug, Right foot pain M79.671 and Morbid obesi ty E66.01 [place] [address] [address] Jul, Right foot pain M79.671 and Morbid obesi ty E66.01 [facility] [address] [facility] [id number] [address] [place] [address] Jul, Injury of right foot, initia l encounter S99.921A and Morbid obesity E66.01 [place] [address] [place] [id number] [place] [address] Jul, Recurrent syncope R55 and Morbid obesity E66.01 [place] [address] [place] [id number] [place] [address] Jul, [place] [address] [address] Jun, Hematuria, unspecified type R31.9 and BM I 50.0-59.9, adult Z68.43 [place] [address] [place] [id number] [place] [address] 07 Jun, 2018 [place] [address] [place] [address] 04 Jun, 2018 [facility] current use of ant icoagulant Z79.01 [facility] N [facility] [id number] [address] [place] [address] May, Ankle pain, right M25.571 an d BMI 50.0-59.9, adult Z68.43 [place] [address] [address] May, [place] [address] [address] May, [place] [address] [address] Apr, [place] [address] [address] Apr, [place] [address] [address] Apr, [facility] [address] [facility] [id number] [address] [place] [address] Apr, BMI 50.0-59.9, adult Z68.43 and Weakness R53.1 [place] [address] [address] Apr, [facility] [place] [address] [address] Apr, Dysuria R30.0 ; Hematuria R3 1.9 ; Renal lithiasis N20.0 and BMI 50.0-59.9, adult Z68.43 [place] [address] [address] Apr, [place] [address] [address] Apr, [place] [address] [address] Apr, Hypothyroidism E03.9 [place] [address] [address] Apr, Burning with urination R30.0 ; 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, 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 ; Acute bilateral low back pain without sciatica M54.5 and BMI 50.0-59.9, adult Z68.43 [place] [address] [address] Mar, Hypothyroidism E03.9 [place] [address] [address] Feb, [facility] [place] [address] [address] 15 Jan, 2018 [place] [address] [address] 07 Jan, 2018 Acute non-recurrent maxillary sinusitis J01.00 and BMI 50.0-59.9, adult Z68.43 [facility] [address] [address] 04 Jan, 2018 Congestion of upper respirat ory tract J98.8 and BMI 50.0-59.9, adult Z68.43 [place] [address] [address] Dec, Type 2 diabetes mellitus with diabetic n europathic arthropathy, 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 ; Morbid obesity with BMI of 50.0-59.9, adult Z68.43 ; Hypothyroidism E03.9 ; Coronary artery disease I25.10 ; Hyperlipidemia LDL goal <70 E78.5 ; Right lower quadrant abdominal pain R10.31 and Acute cystitis with hematuria N30.01 [facility] [address] [facility] [id number] [address] [place] [address] Dec, Migraine with aura and witho ut status migrainosus, not intractable G43.109 ; Dehydration symptoms R63.8 and BMI 50.0-59.9, adult Z68.43 [place] [address] [address] Oct, [place] [address] [address] Oct, [place] [address] [address] Oct, [facility] [address] [address] September, [place] [address] [address] September, Type 2 diabetes mellitus with diabetic n europathic arthropathy, 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 ; Hyperlipidemia, unspecified hyperlipidemia type E78.5 ; Personal history of pulmonary embolism Z86.711 ; Coronary artery disease I25.10 and Hypothyroidism E03.9 [facility] [address] [address] September, [place] [address] [address] Aug, Type 2 diabetes mellitus with diabetic [...] without aura and with status migrainosus G43.011 [place] [address] [address] Aug, [place] [address] [address] Aug, [place] [address] [address] Jul, Renal stones N20.0 [facility] [address] [facility] [id number] [address] [place] [address] Jun, Back pain M54.9 ; Kidney sto radha N20.0 and BMI 50.0-59.9, adult Z68.43 [place] [address] [address] Jun, [place] [address] [address] Apr, [place] [address] [address] Apr, [place] [address] [address] Apr, Right foot pain M79.671 ; Acute gout inv olving toe of right foot, 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 and Arthritis M19.90 [place] [address] [address] 06 Apr, 2017 Gastroesophageal reflux disease without esophagitis K21.9 [place] [address] [address] 16 Mar, 2017 Hypothyroidism, unspecified E03.9 [place] [address] [address] 11 Feb, 2017 [place] [address] [address] 25 Jan, 2017 Cervicalgia of ntavxvxf-jtqvbig-lvbbk re gion M54.2 and Persistent headaches R51 [place] [address] [address] 20 Jan, 2017 [place] [address] [address] 12 Jan, 2017 Intractable migraine without aura and wi th status migrainosus G43.011 ; Cervical spine pain M54.2 ; Hyperlipidemia, unspecified hyperlipidemia type E78.5 ; Hypothyroidism E03.9 and Metabolic syndrome E88.81 [place] [address] [address] Jan, Hypothyroidism, unspecified E03.9 [place] [address] [address] Dec, Hypothyroidism, unspecified E03.9 [place] [address] [address] Dec, Hypothyroidism E03.9 [place] [address] [address] Nov, Laceration of left great toe w/o foreign body w/o damage to nail, initial encounter S91.112A [facility] [address] [facility] [id number] [address] [place] [address] Oct, Pain in left knee M25.562 an d Arthritis M19.90 [place] [address] [address] Oct, Hypothyroidism, unspecified E03.9 and Hy perlipidemia, unspecified hyperlipidemia type E78.5 [place] [address] [address] Oct, Gastroesophageal reflux disease without esophagitis K21.9 [place] [address] [address] 14 Oct, 2016 Metabolic syndrome E88.81 ; Personal his tory of pulmonary embolism Z86.711 ; Other specified hypothyroidism E03.8 and Hyperlipidemia, unspecified hyperlipidemia type E78.[address] [address] 13 Oct, 2017 Personal history of pulmonary embolism Z 86.711 ; Dysuria R30.0 ; Metabolic syndrome E88.81 ; Other specified hypothyroidism E03.8 ; Hyperlipidemia, unspecified hyperlipidemia type E78.5 and Morbid obesity with BMI of 50.0-59.9, adult Z68.[address] [address] September, [facility] [address] [address] September, Wrist pain, left M25.532 and Acute pain of left knee M25.[address] [address] Jul, Dysuria R30.[address] [address] Jul, Dysuria R30.[address] [address] Jul, Left lower quadrant pain R10.[address] [address] Jul, [address] [address] Jul, Coronary artery disease I25.10 ; Family history of diabetes mellitus Z83.3 ; Morbid obesity with BMI of 50.0-59.9, adult Z68.43 ; Metabolic syndrome E88.81 ; Personal history of pulmonary embolism Z86.711 ; Gastroesophageal reflux disease without esophagitis K21.9 ; Hypothyroidism, unspecified E03.9 ; Hyperlipidemia, unspecified hyperlipidemia type E78.5 and Left lower quadrant pain R10.32 [facility] [place] [id number] [address] [place] [address] Jul, [facility] [address] [address] Jul, Morbid obesity with BMI of 5 0.0-59.9, adult Z68.43 [facility] [address] [address] Jul, Generalized abdominal pain R 10.84 [facility] [address] [address] 02 Jun, 2016 Muscle strain of right upper back, initial encounter S29.012A [facility] [address] [address] May, Foreign body (FB) in soft ti ssue M79.[address] [address] Mar, Hypothyroidism, unspecified E03.9 and Ar thritis M19.[address] [address] Feb, Coronary artery disease I25.10 ; Morbid obesity with BMI of 50.0-59.9, adult Z68.43 ; Metabolic syndrome E88.81 ; Gastroesophageal reflux disease without esophagitis K21.9 ; Hypothyroidism, unspecified E03.9 ; Personal history of pulmonary embolism Z86.711 and Hyperlipidemia, unspecified hyperlipidemia type E78.[address] [address] Feb, [facility] [address] [address] Jan, Acute right-sided thoracic b ack pain M54.[address] [address] Jan, Acute pain of left knee M25.[address] [address] Dec, Dysuria R30.0 ; Metabolic syndrome E88.8 1 ; Acute pain of left knee M25.562 ; Acute cystitis with hematuria N30.01 and Acute left eye pain H57.[address] [address] Dec, [place] [address] [address] Dec, [place] [address] [address] Dec, Hypothyroidism, unspecified E03.9 [place] [address] [address] Dec, [place] [address] [address] Nov, Peripheral edema R60.9 and Acute pain of left knee M25.562 [facility] [place] [address] [place] [id number] [place] [address] September, [place] [address] [address] September, Metabolic syndrome E88.81 and Allergy, s ubsequent encounter T78.40XD [facility] [place] [address] [facility] [id number] [address] [place] [address] September, Muscle strain T14.8 [place] [address] [address] Aug, Chest pressure R07.89 ; Metabolic syndro me E88.81 ; Morbid obesity with BMI of 50.0-59.9, adult Z68.43 ; Esophageal reflux 530.81 and Shortness of breath R06.02 [place] [address] [address] Aug, [place] [address] [address] Aug, [place] [address] [address] Aug, Hypothyroidism, unspecified E03.9 [place] [address] [address] Aug, Routine health maintenance Z00.00 [facility] [place] [address] [facility] [id number] [address] [place] [address] Aug, [place] [address] [address] 31 Jul, 2015 Routine health maintenance Z00.00 ; Fami ly history of diabetes mellitus Z83.3 ; Family history of cancer Z80.9 and Morbid obesity with BMI of 50.0-59.9, adult Z68.43 [facility] [place] [address] [place] [id number] [place] [address] 28 Jul, 2015 Allergic rhinitis J30.9 and Postnasal drip R09.[address] [address] 18 Jul, 2015 Influenza J11.1 [facility] [address] [address] Jul, Dysuria R30.0 [place] [address] [address] Apr, [address] [address] Mar, Acute upper respiratory infection, unspe cified J06.9 and Hypothyroidism E03.[address] [address] Mar, [place] [address] [address] Feb, Coronary artery disease I25.10 [place] [address] [address] Feb, Left foot pain M79.[address] [address] Jan, UTI (urinary tract infection) 599.[address] [address] Jan, Urinary tract infection, site not specif ied 599.0 [facility] [address] [place] [id number] [place] [address] Jan, Urinary tract infection, site not specif ied 599.0 [facility] [address] [address] Jan, [facility] [address] [address] Dec, Headache 784.0 [facility] [address] [address] Dec, Urinary tract infection, site not specif ied 599.0 [place] [address] [address] Dec, Urinary tract infection, site not specif ied 599.0 [place] [address] [address] Dec, Urinary tract infection, site not specif ied 599.0 [place] [address] [address] Nov, Unspecified sleep apnea 780.57 ; Encount er for long-term (current) use of anticoagulants V58.61 ; Routine general medical examination at health care facility V70.0 and Arthritis of both knees 716.96 [place] [address] [address] September, Cat bite of hand 882.0 and Rectal bleedi ng 569.3 [facility] [address] [place] [id number] [place] [address] Aug, [facility] [address] [address] Aug, [facility] [address] [address] Jul, [facility] [address] [address] Jul, [facility] [address] [place] [address] Jul, [facility] [id number] [place] [address] Jul, [facility] [id number] [place] [address] Jul, [facility] [id number] [place] [address] Jul, [facility] [id number] [place] [address] Jul, [facility] [id number] [place] [address] Jul, [facility] [id number] [place] [address] May, [facility] [id number] [place] [address] May, [facility] [id number] [place] [address] May, [facility] [id number] [place] [address] May, [facility] [id number] [place] [address] May, [facility] [id number] [place] [address] May, [facility] [id number] [place] [address] May, [facility] [id number] [place] [address] Mar, [facility] [id number] [place] [address] Mar, [facility] [id number] [place] [address] Jan, [facility] [id number] [place] [address] Jan, [facility] [address] [id number] [place] [address] 08 Jan, 2013 [facility] [address] [facility] [id number] [place] [address] Jan, 2013 [facility] [address] [facility] [id number] [place] [address] Jan, 2013 [facility] [address] [facility] [id number] [place] [address] Jan, 2013 [facility] [address] [facility] [id number] [place] [address] Dec, [facility] [address] [id number] [place] [address] Dec, [facility] [address] [facility] [id number] [place] [address] Dec, [facility] [address] [facility] [id number] [place] [address] Dec, [facility] [address] [facility] [id number] [place] [address] Dec, [facility] [address] [facility] [id number] [place] [address] Dec, [facility] [address] [facility] [id number] [place] [address] Dec, [facility] [address] [facility] [id number] [place] [address] Dec, [facility] [address] [id number] [place] [address] Dec, [facility] [address] [facility] [id number] [place] [address] Dec, [facility] [address] [id number] [place] [address] Nov, [facility] [address] [facility] [id number] [place] [address] Nov, [facility] [address] [id number] [place] [address] September, [facility] [address] [facility] [id number] [place] [address] September, [facility] [address] [facility] [id number] [facility] [place] [address] September, [facility] [address] [facility] [id number] [place] [address] September, [facility] [address] [facility] [id number] [place] [address] Aug, [facility] [address] [facility] [id number] [place] [address] Aug, [facility] [address] [facility] [id number] [place] [address] Aug, [facility] [address] [facility] [id number] [place] [address] Aug, [facility] [address] [facility] [id number] [place] [address] Aug, [facility] [address] [facility] [id number] [place] [address] Aug, [facility] [address] [facility] [address] [id number] [place] [address] Aug, [facility] [address] [facility] [id number] [place] [address] Aug, [facility] [place] [facility] [address] [facility] [id number] [place] [address] Aug, [facility] [place] [facility] [address] [facility] [id number] [place] [address] Aug, [facility] [place] [facility] [address] [id number] [place] [address] Aug, [facility] [place] [facility] [address] [facility] [id number] [place] [address] Aug, [facility] [place] [facility] [address] [facility] [id number] [place] [address] Jul, [facility] [place] [facility] [address] [facility] [id number] [place] [address] Jul, [facility] [place] [facility] [address] [facility] [id number] [place] [address] Jul, [facility] [place] [facility] [address] [facility] [id number] [place] [address] Jul, [facility] [place] [facility] [address] [facility] [id number] [place] [address] Jul, [facility] [place] [facility] [id number] [place] [address] Jul, [facility] [place] [facility] [address] [id number] [place] [address] Jul, [facility] [place] [facility] [address] [facility] [id number] [place] [address] Jul, [facility] [place] [facility] [address] [id number] [place] [address] Jul, [facility] [place] [facility] [address] [facility] [id number] [place] [address] Jul, [facility] [place] [facility] [id number] [place] [address] Jun, [facility] [place] [facility] [address] [facility] [id number] [place] [address] Jun, [facility] [place] [facility] [id number] [place] [address] Jun, [facility] [place] [facility] [id number] [place] [address] Jun, [facility] [place] [facility] [id number] [place] [address] Jun, [facility] [place] [facility] [id number] [place] [address] Jun, [facility] [place] [facility] [address] [id number] [place] [address] Jun, [facility] [address] [id number] [place] [address] Jun, [facility] [address] [facility] [id number] [place] [address] Jun, [facility] [address] [facility] [id number] [facility], [place] [address] Jun, [facility] [address] [facility] [id number] [place] [address] Jun, [facility] [address] [facility] [id number] [place] [address] Jun, [facility] [address] [facility] [id number] [place] [address] May, [facility] [address] [id number] [place] [address] May, [facility] [address] [id number] [place] [address] May, [facility] [address] [id number] [place] [address] May, [facility] [address] [id number] [place] [address] May, [facility] [address] [id number] [place] [address] May, [facility] [address] [id number] [place] [address] May, [facility] [address] [id number] [place] [address] May, [facility] [address] [id number] [place] [address] May, [facility] [address] [id number] [place] [address] May, [facility] [address] [id number] [place] [address] May, [facility] [address] [id number] [place] [address] May, [facility] [address] [id number] [place] [address] May, [facility] [address] [id number] [place] [address] May, [facility] [address] [id number] [place] [address] May, [facility] [address] [id number] [place] [address] Apr, [facility] [address] [id number] [place] [address] Apr, [facility] [address] [id number] [place] [address] Apr, [facility] [address] [id number] [place] [address] Apr, [facility] [address] [id number] [place] [address] Mar, [facility] [address] [id number] [place] [address] Mar, [facility] [address] [id number] [place] [address] Mar, [facility] [address] [id number] [place] [address] Mar, [facility] [address] [id number] [place] [address] Mar, [facility] [address] [id number] [place] [address] Mar, [facility] [address] [id number] [place] [address] Mar, [facility] [id number] [place] [address] Mar, [facility] [address] [id number] [place] [address] Mar, [facility] [address] [id number] [place] [address] Mar, [facility] [address] [id number] [place] [address] Mar, 2012 [facility] [address] [id number] [place] [address] Mar, [facility] [address] [id number] [place] [address] Feb, [facility] [address] [id number] [place] [address] 18 Jan, 2013 [facility] [address] [facility] [id number] [place] [address] 17 Jan, 2012 [facility] [address] [id number] [place] [address] Jan, [facility] [address] [id number] [place] [address] Jan, [facility] [address] [id number] [place] [address] Jan, [facility] [address] [id number] [place] [address] Dec, [facility] [address] [id number] [place] [address] Dec, [facility] [address] [id number] [place] [address] Dec, [facility] [address] [id number] [place] [address] 16 Dec, 2012 [facility] [address] [id number] [place] [address] Dec, [facility] [address] [id number] [place] [address] Dec, [facility] [address] [id number] [place] [address] Dec, [facility] [address] [id number] [place] [address] Dec, [facility] [address] [id number] [place] [address] Nov, [facility] [address] [id number] [place] [address] Nov, [facility] [address] [id number] [place] [address] Nov, [facility] [address] [id number] [place] [address] Nov, [facility] [address] [id number] [place] [address] Nov, [facility] [address] [id number] [place] [address] Nov, [facility] [address] [id number] [place] [address] Oct, [facility] [address] [id number] [id number] Oct, [facility] [address] [id number] [id number] Oct, [facility] [address] [id number] [id number] Oct, [facility] [address] [id number] [id number] Oct, [facility] [address] [id number] [place] [address] Oct, [facility] [address] [id number] [place] [address] Oct, [facility] [address] [id number] [place] [address] Oct, [facility] [address] [id number] [place] [address] Oct, [facility] [address] [id number] [place] [address] Oct, [facility] [address] [id number] [place] [address] Oct, [facility] [address] [id number] [place] [address] September, [facility] [address] [facility] [id number] [place] [address] Aug, [facility] [address] [id number] [place] [address] Aug, [facility] [address] [id number] [place] [address] Aug, [facility] [address] [id number] [place] [address] Aug, [facility] [address] [facility] [id number] [place] [address] Jul, [facility] [address] [id number] [place] [address] Jul, [facility] [address] [id number] [place] [address] Jul, [facility] [address] [id number] [place] [address] Jul, [facility] [address] [id number] [place] [address] Jul, [facility] [address] [id number] [place] [address] Jun, [facility] [address] [id number] [place] [address] Jun, [facility] [address] [id number] [place] [address] Jun, [facility] [address] [id number] [place] [address] May, [facility] [address] [id number] [place] [address] May, [facility] [address] [id number] [place] [address] May, [facility] [address] [id number] [place] [address] May, [facility] [address] [id number] [place] [address] May, [facility] [address] [id number] [place] [address] May, [facility] [address] [id number] [place] [address] Apr, [facility] [address] [id number] [place] [address] 18 Apr, 2012 [facility] [address] [id number] [place] [address] Apr, [facility] [address] [id number] [place] [address] Apr, [facility] [address] [id number] [place] [address] Apr, [facility] [address] [id number] [place] [address] Apr, [facility] [address] [id number] [place] [address] Apr, [facility] [address] [id number] [place] [address] Mar, [facility] [address] [id number] [place] [address] Mar, [facility] [address] [id number] [place] [address] Mar, [facility] [address] [id number] [place] [address] Mar, [facility] [address] [id number] [place] [address] 18 Jan, 2012 [facility] [id number] [place] [address] 10 Jan, 2012 [facility] [address] [id number] [place] [address] Jan, [facility] [address] [id number] [place] [address] 06 Jan, [address] [facility] [address] [id number] [place] [id number] Dec, [facility] [id number] [place] [address] Dec, [facility] [address] [id number] [place] [id number] Dec, [facility] [address] [address] Dec, [facility] [address] [address] Dec, [facility] [address] [address] Dec, [facility] [address] [address] Nov, [facility] [address] [address] Nov, [facility] [address] [address] Nov, IMMUNIZATIONS No Known Immunizations SOCIAL HISTORY [...] Stent placed 08/19/2017 Hospitalization History Syncope- [facility] 12/2017 Hospitalization History heart cath ( 06/23/18-06/25/2018) Hospitalization History heart problem, overnight stay 9
--- OUTSIDE RECORDS SUMMARY | 2019-11-03 19:26 | XMS REPORT ---
Author Author Anca Lucero Doctor Organization [facility] Address Unknown Phone Unavailable Care Team Providers Care Desktop Engineer Name Role Phone Migration, Doctor Unavailable Unavailable PROBLEMS Type Condition ICD9-CM Code DYJ27-CE Code Onset Dates Condition S tatus SNOMED Code Problem Esophageal reflux K21.9 Active 24 4855233 Problem Dyslipidemia E78.5 12 Oct, 2017 Active 3709 65543 Problem Unspecified hypothyroidism E03.9 Act hernesto 42758469 Problem Generalized anxiety disorder F41.1 Apr, 200 8 Active 09000711 Problem Shortness of breath R06.02 Apr, Active 884798612 Problem Pulmonary embolus I26.99 13 Oct, 2011 Active 90014313 Problem Nonintractable migraine G43.009 Oct, Act hernesto 685507742 Problem Pre-diabetes R73.03 Active 2557470 02 Problem Morbid obesity with BMI of 50.0-59.9, adult Z68.43 Active 371294839 Problem Hypothyroidism E03.9 Active 65454 008 Problem Morbid obesity E66.01 Active 95821 6002 Problem Unspecified sleep apnea G47.30 Active 20298668 Problem Personal history of pulmonary embolism Z86.711 Active 257100526 Problem Osteoarthritis of right knee M17.11 13 May, 201 0 Active 286419945 Problem Renal stones N20.0 Active 5537158 7 Problem Coronary artery disease I25.10 Active 21004283 Problem Hyperlipidemia LDL goal <70 E78.5 Ac tive 51796424 Problem Migraine with aura and without status migrainosu s, not intractable G43.109 Active 3649620 ALLERGIES No Information ENCOUNTERS Encounter Location Date Diagnosis [facility] [address] [id number] [place] [address] 07 Jun, 2019 Personal history of pulmonary embolism Z 86.711 [facility] [address] [facility] [place] [address] 07 Jun, 2019 Personal history of pulmonary embolism Z 86.711 [place] [id number] [id number] [place] [address] May, [facility] [address] [place] [address] May, 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 and Dizziness R42 [facility] [address] [facility] [id number] [address] [place] [address] Apr, Non-recurrent acute suppurat hernesto otitis media of both ears without spontaneous rupture of tympanic membranes H66.003 [place] [address] [address] 08 Feb, 2019 Pre-diabetes R73.03 and Hyperlipidemia L DL goal <70 E78.5 [place] [address] [place] [id number] [place] [address] Feb, [place] [address] [address] Feb, [place] [address] [place] [id number] [place] [address] Jan, [place] [address] [address] Jan, [place] [address] [address] 18 Jan, 2019 Encounter for Medicare annual wellness e xam Z00.00 ; Hyperlipidemia LDL goal <70 E78.5 ; Coronary artery disease I25.10 ; Hypothyroidism E03.9 ; Osteoarthritis of right knee M17.11 ; Morbid obesity with BMI of 50.0-59.9, adult Z68.43 and Esophageal reflux K21.9 [place] [address] [address] Jan, Dysuria R30.0 and Hematuria, unspecified type R31.9 [place] [address] [place] [id number] [place] [address] Jan, Hematuria, unspecified type R31.9 [place] [address] [place] [address] [place] [address] Dec, Hematuria, unspecified type R31.9 [facility] [address] [address] Nov, Hematuria, unspecified type R31.[address] [place] [address] Nov, Other microscopic hematuria R31.29 [place] [address] [address] Nov, Vaginal gena B37.3 ; Other microscopi c hematuria R31.29 and Morbid obesity E66.01 [place] [address] [address] Nov, [place] [address] [address] Nov, [facility] N [place] [id number] [address] [place] [address] Nov, UTI symptoms R39.9 and Morbi d obesity E66.01 [place] [address] [address] Nov, [place] [address] [address] September, [place] [address] [address] September, [place] [address] [address] Aug, Right foot pain M79.671 and Morbid obesi ty E66.01 [place] [address] [address] Jul, Right foot pain M79.671 and Morbid obesi ty E66.01 [facility] [address] [facility] [id number] [address] [place] [address] Jul, Injury of right foot, initia l encounter S99.921A and Morbid obesity E66.01 [place] [address] [place] [id number] [place] [address] Jul, Recurrent syncope R55 and Morbid obesity E66.01 [place] [address] [place] [id number] [place] [address] Jul, [place] [address] [address] Jun, Hematuria, unspecified type R31.9 and BM I 50.0-59.9, adult Z68.43 [place] [address] [place] [id number] [place] [address] 07 Jun, 2018 [place] [address] [place] [address] 04 Jun, 2018 intermediate current use of ant icoagulant Z79.01 [facility] N [facility] [id number] [address] [place] [address] May, Ankle pain, right M25.571 an d BMI 50.0-59.9, adult Z68.43 [place] [address] [address] May, [place] [address] [address] May, [place] [address] [address] Apr, [place] [address] [address] Apr, [place] [address] [address] Apr, [facility] [address] [facility] [id number] [address] [place] [address] Apr, BMI 50.0-59.9, adult Z68.43 and Weakness R53.1 [place] [address] [address] Apr, [facility] [place] [address] [address] Apr, Dysuria R30.0 ; Hematuria R3 1.9 ; Renal lithiasis N20.0 and BMI 50.0-59.9, adult Z68.43 [place] [address] [address] Apr, [place] [address] [address] Apr, [place] [address] [address] Apr, Hypothyroidism E03.9 [place] [address] [address] Apr, Burning with urination R30.0 ; 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, 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 ; Acute bilateral low back pain without sciatica M54.5 and BMI 50.0-59.9, adult Z68.43 [place] [address] [address] Mar, Hypothyroidism E03.9 [place] [address] [address] Feb, [facility] [place] [address] [address] 15 Jan, 2018 [place] [address] [address] 07 Jan, 2018 Acute non-recurrent maxillary sinusitis J01.00 and BMI 50.0-59.9, adult Z68.43 [facility] [address] [address] 04 Jan, 2018 Congestion of upper respirat ory tract J98.8 and BMI 50.0-59.9, adult Z68.43 [place] [address] [address] Dec, Type 2 diabetes mellitus with diabetic n europathic arthropathy, 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 ; Morbid obesity with BMI of 50.0-59.9, adult Z68.43 ; Hypothyroidism E03.9 ; Coronary artery disease I25.10 ; Hyperlipidemia LDL goal <70 E78.5 ; Right lower quadrant abdominal pain R10.31 and Acute cystitis with hematuria N30.01 [facility] [address] [facility] [id number] [address] [place] [address] Dec, Migraine with aura and witho ut status migrainosus, not intractable G43.109 ; Dehydration symptoms R63.8 and BMI 50.0-59.9, adult Z68.43 [place] [address] [address] Oct, [place] [address] [address] Oct, [place] [address] [address] Oct, [facility] [address] [address] September, [place] [address] [address] September, Type 2 diabetes mellitus with diabetic n europathic arthropathy, 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 ; Hyperlipidemia, unspecified hyperlipidemia type E78.5 ; Personal history of pulmonary embolism Z86.711 ; Coronary artery disease I25.10 and Hypothyroidism E03.9 [facility] [address] [address] September, [place] [address] [address] Aug, Type 2 diabetes mellitus with diabetic [...] without aura and with status migrainosus G43.011 [place] [address] [address] Aug, [place] [address] [address] Aug, [place] [address] [address] Jul, Renal stones N20.0 [facility] [address] [facility] [id number] [address] [place] [address] Jun, Back pain M54.9 ; Kidney sto radha N20.0 and BMI 50.0-59.9, adult Z68.43 [place] [address] [address] Jun, [place] [address] [address] Apr, [place] [address] [address] Apr, [place] [address] [address] Apr, Right foot pain M79.671 ; Acute gout inv olving toe of right foot, 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 and Arthritis M19.90 [place] [address] [address] 06 Apr, 2017 Gastroesophageal reflux disease without esophagitis K21.9 [place] [address] [address] 16 Mar, 2017 Hypothyroidism, unspecified E03.9 [place] [address] [address] 11 Feb, 2017 [place] [address] [address] 25 Jan, 2017 Cervicalgia of anshblve-trnazcl-rorrj re gion M54.2 and Persistent headaches R51 [place] [address] [address] 20 Jan, 2017 [place] [address] [address] 12 Jan, 2017 Intractable migraine without aura and wi th status migrainosus G43.011 ; Cervical spine pain M54.2 ; Hyperlipidemia, unspecified hyperlipidemia type E78.5 ; Hypothyroidism E03.9 and Metabolic syndrome E88.81 [place] [address] [address] Jan, Hypothyroidism, unspecified E03.9 [place] [address] [address] Dec, Hypothyroidism, unspecified E03.9 [place] [address] [address] Dec, Hypothyroidism E03.9 [place] [address] [address] Nov, Laceration of left great toe w/o foreign body w/o damage to nail, initial encounter S91.112A [facility] [address] [facility] [id number] [address] [place] [address] Oct, Pain in left knee M25.562 an d Arthritis M19.90 [place] [address] [address] Oct, Hypothyroidism, unspecified E03.9 and Hy perlipidemia, unspecified hyperlipidemia type E78.5 [place] [address] [address] Oct, Gastroesophageal reflux disease without esophagitis K21.9 [place] [address] [address] 14 Oct, 2016 Metabolic syndrome E88.81 ; Personal his tory of pulmonary embolism Z86.711 ; Other specified hypothyroidism E03.8 and Hyperlipidemia, unspecified hyperlipidemia type E78.[address] [address] 13 Oct, 2017 Personal history of pulmonary embolism Z 86.711 ; Dysuria R30.0 ; Metabolic syndrome E88.81 ; Other specified hypothyroidism E03.8 ; Hyperlipidemia, unspecified hyperlipidemia type E78.5 and Morbid obesity with BMI of 50.0-59.9, adult Z68.[address] [address] September, [facility] [address] [address] September, Wrist pain, left M25.532 and Acute pain of left knee M25.[address] [address] Jul, Dysuria R30.[address] [address] Jul, Dysuria R30.[address] [address] Jul, Left lower quadrant pain R10.[address] [address] Jul, [address] [address] Jul, Coronary artery disease I25.10 ; Family history of diabetes mellitus Z83.3 ; Morbid obesity with BMI of 50.0-59.9, adult Z68.43 ; Metabolic syndrome E88.81 ; Personal history of pulmonary embolism Z86.711 ; Gastroesophageal reflux disease without esophagitis K21.9 ; Hypothyroidism, unspecified E03.9 ; Hyperlipidemia, unspecified hyperlipidemia type E78.5 and Left lower quadrant pain R10.32 [facility] [place] [id number] [address] [place] [address] Jul, [facility] [address] [address] Jul, Morbid obesity with BMI of 5 0.0-59.9, adult Z68.43 [facility] [address] [address] Jul, Generalized abdominal pain R 10.84 [facility] [address] [address] 02 Jun, 2016 Muscle strain of right upper back, initial encounter S29.012A [facility] [address] [address] May, Foreign body (FB) in soft ti ssue M79.[address] [address] Mar, Hypothyroidism, unspecified E03.9 and Ar thritis M19.[address] [address] Feb, Coronary artery disease I25.10 ; Morbid obesity with BMI of 50.0-59.9, adult Z68.43 ; Metabolic syndrome E88.81 ; Gastroesophageal reflux disease without esophagitis K21.9 ; Hypothyroidism, unspecified E03.9 ; Personal history of pulmonary embolism Z86.711 and Hyperlipidemia, unspecified hyperlipidemia type E78.[address] [address] Feb, [facility] [address] [address] Jan, Acute right-sided thoracic b ack pain M54.[address] [address] Jan, Acute pain of left knee M25.[address] [address] Dec, Dysuria R30.0 ; Metabolic syndrome E88.8 1 ; Acute pain of left knee M25.562 ; Acute cystitis with hematuria N30.01 and Acute left eye pain H57.[address] [address] Dec, [place] [address] [address] Dec, [place] [address] [address] Dec, Hypothyroidism, unspecified E03.9 [place] [address] [address] Dec, [place] [address] [address] Nov, Peripheral edema R60.9 and Acute pain of left knee M25.562 [facility] [place] [address] [place] [id number] [address] [place] [address] September, [place] [address] [address] September, Metabolic syndrome E88.81 and Allergy, s ubsequent encounter T78.40XD [facility] [place] [address] [facility] [id number] [address] [place] [address] September, Muscle strain T14.8 [place] [address] [address] Aug, Chest pressure R07.89 ; Metabolic syndro me E88.81 ; Morbid obesity with BMI of 50.0-59.9, adult Z68.43 ; Esophageal reflux 530.81 and Shortness of breath R06.02 [place] [address] [address] Aug, [place] [address] [address] Aug, [place] [address] [address] Aug, Hypothyroidism, unspecified E03.9 [place] [address] [address] Aug, Routine health maintenance Z00.00 [facility] [place] [address] [facility] [id number] [address] [place] [address] Aug, [place] [address] [address] 31 Jul, 2015 Routine health maintenance Z00.00 ; Fami ly history of diabetes mellitus Z83.3 ; Family history of cancer Z80.9 and Morbid obesity with BMI of 50.0-59.9, adult Z68.43 [facility] [place] [address] [place] [id number] [address] [place] [address] 28 Jul, 2015 Allergic rhinitis J30.9 and Postnasal drip R09.[address] [address] 18 Jul, 2015 Influenza J11.1 [facility] [address] [address] Jul, Dysuria R30.0 [place] [address] [address] Apr, [address] [address] Mar, Acute upper respiratory infection, unspe cified J06.9 and Hypothyroidism E03.[address] [address] Mar, [place] [address] [address] Feb, Coronary artery disease I25.10 [place] [address] [address] Feb, Left foot pain M79.[address] [address] Jan, UTI (urinary tract infection) 599.[address] [address] Jan, Urinary tract infection, site not specif ied 599.0 [facility] [address] [place] [id number] [place] [address] Jan, Urinary tract infection, site not specif ied 599.0 [facility] [address] [address] Jan, [facility] [address] [address] Dec, Headache 784.0 [facility] [address] [address] Dec, Urinary tract infection, site not specif ied 599.0 [place] [address] [address] Dec, Urinary tract infection, site not specif ied 599.0 [place] [address] [address] Dec, Urinary tract infection, site not specif ied 599.0 [place] [address] [address] Nov, Unspecified sleep apnea 780.57 ; Encount er for long-term (current) use of anticoagulants V58.61 ; Routine general medical examination at health care facility V70.0 and Arthritis of both knees 716.96 [place] [address] [address] September, Cat bite of hand 882.0 and Rectal bleedi ng 569.3 [facility] [address] [place] [id number] [place] [address] Aug, [facility] [address] [address] Aug, [facility] [address] [address] Jul, [facility] [address] [address] Jul, [facility] [address] [place] [address] Jul, [facility] [address] [id number] [place] [address] Jul, [facility] [address] [id number] [place] [address] Jul, [facility] [address] [id number] [place] [address] Jul, [facility] [address] [id number] [place] [address] Jul, [facility] [address] [id number] [place] [address] Jul, [facility] [address] [id number] [place] [address] May, [facility] [address] [id number] [place] [address] May, [facility] [address] [id number] [place] [address] May, [facility] [address] [id number] [place] [address] May, [facility] [address] [id number] [place] [address] May, [facility] [address] [id number] [place] [address] May, [facility] [address] [id number] [place] [address] May, [facility] [address] [id number] [place] [address] Mar, [facility] [address] [id number] [place] [address] Mar, [facility] [address] [id number] [place] [address] Jan, [facility] [address] [id number] [place] [address] Jan, [facility] [address] [id number] [place] [address] 08 Jan, 2013 [facility] [address] [facility] [id number] [place] [address] Jan, 2013 [facility] [address] [facility] [id number] [place] [address] Jan, 2013 [facility] [address] [id number] [place] [address] Jan, 2013 [facility] [address] [facility] [id number] [place] [address] Dec, [facility] [address] [id number] [place] [address] Dec, [facility] [address] [id number] [place] [address] Dec, [facility] [address] [id number] [place] [address] Dec, [facility] [address] [id number] [place] [address] Dec, [facility] [address] [id number] [place] [address] Dec, [facility] [address] [id number] [place] [address] Dec, [facility] [address] [id number] [place] [address] Dec, [facility] [address] [id number] [place] [address] Dec, [facility] [address] [facility] [id number] [place] [address] Dec, [facility] [address] [id number] [place] [address] Nov, [facility] [address] [id number] [place] [address] Nov, [facility] [address] [id number] [place] [address] September, [facility] [address] [facility] [id number] [place] [address] September, [facility] [address] [facility] [id number] [facility] [place] [address] September, [facility] [address] [id number] [place] [address] September, [facility] [address] [id number] [place] [address] Aug, [facility] [address] [facility] [id number] [place] [address] Aug, [facility] [address] [id number] [place] [address] Aug, [facility] [address] [id number] [place] [address] Aug, [facility] [address] [id number] [place] [address] Aug, [facility] [address] [id number] [place] [address] Aug, [facility] [facility] [address] [facility] [id number] [place] [address] Aug, [facility] [place] [facility] [address] [facility] [id number] [place] [address] Aug, [facility] [place] [facility] [address] [id number] [place] [address] Aug, [facility] [place] [facility] [address] [facility] [id number] [place] [address] Aug, [facility] [place] [facility] [address] [id number] [place] [address] Aug, [facility] [place] [facility] [address] [id number] [place] [address] Aug, [facility] [place] [facility] [address] [id number] [place] [address] Jul, [facility] [place] [facility] [address] [facility] [id number] [place] [address] Jul, [facility] [place] [facility] [address] [facility] [id number] [place] [address] Jul, [facility] [place] [facility] [address] [id number] [place] [address] Jul, [facility] [place] [facility] [address] [id number] [place] [address] Jul, [facility] [place] [facility] [address] [id number] [place] [address] Jul, [facility] [place] [facility] [address] [id number] [place] [address] Jul, [facility] [place] [facility] [address] [id number] [place] [address] Jul, [facility] [place] [facility] [address] [id number] [place] [address] Jul, [facility] [place] [facility] [address] [facility] [id number] [place] [address] Jul, [facility] [place] [facility] [address] [id number] [place] [address] Jun, [facility] [place] [facility] [address] [id number] [place] [address] Jun, [facility] [place] [facility] [address] [id number] [place] [address] Jun, [facility] [place] [facility] [address] [id number] [place] [address] Jun, [facility] [place] [facility] [address] [id number] [place] [address] Jun, [facility] [place] [facility] [address] [id number] [place] [address] Jun, [facility] [place] [facility] [address] [id number] [place] [address] Jun, [facility] [place] [facility] [address] [id number] [place] [address] Jun, [facility] [place] [facility] [address] [facility] [id number] [place] [address] Jun, [facility] [facility] [address] [facility] [id number] [facility] [place] [address] Jun, [facility] [address] [facility] [id number] [place] [address] Jun, [facility] [address] [facility] [id number] [place] [address] Jun, [facility] [address] [facility] [id number] [place] [address] May, [facility] [address] [id number] [place] [address] May, [facility] [address] [id number] [place] [address] May, [facility] [address] [id number] [place] [address] May, [facility] [address] [id number] [place] [address] May, [facility] [address] [id number] [place] [address] May, [facility] [address] [id number] [place] [address] May, [facility] [address] [id number] [place] [address] May, [facility] [address] [id number] [place] [address] May, [facility] [address] [id number] [place] [address] May, [facility] [address] [id number] [place] [address] May, [facility] [address] [id number] [place] [address] May, [facility] [address] [id number] [place] [address] May, [facility] [address] [id number] [place] [address] May, [facility] [address] [id number] [place] [address] May, [facility] [address] [id number] [place] [address] Apr, [facility] [address] [id number] [place] [address] Apr, [facility] [address] [id number] [place] [address] Apr, [facility] [address] [id number] [place] [address] Apr, [facility] [address] [id number] [place] [address] Mar, [facility] [address] [id number] [place] [address] Mar, [facility] [address] [id number] [place] [address] Mar, [facility] [address] [id number] [place] [address] Mar, [facility] [address] [id number] [place] [address] Mar, [facility] [address] [id number] [place] [address] Mar, [facility] [address] [id number] [place] [address] Mar, [facility] [address] [id number] [place] [address] Mar, [facility] [address] [id number] [place] [address] Mar, [facility] [address] [id number] [place] [address] Mar, [facility] [address] [id number] [place] [address] Mar, 2012 [facility] [address] [id number] [place] [address] Mar, [facility] [address] [id number] [place] [address] Feb, [facility] [address] [id number] [place] [address] 18 Jan, 2013 [facility] [address] [facility] [id number] [place] [address] 17 Jan, 2012 [facility] [address] [id number] [place] [address] Jan, [facility] [address] [id number] [place] [address] Jan, [facility] [address] [id number] [place] [address] Jan, [facility] [address] [id number] [place] [address] Dec, [facility] [address] [id number] [place] [address] Dec, [facility] [address] [id number] [place] [address] Dec, [facility] [address] [id number] [place] [address] 16 Dec, 2012 [facility] [address] [id number] [place] [address] Dec, [facility] [address] [id number] [place] [address] Dec, [facility] [address] [id number] [place] [address] Dec, [facility] [address] [id number] [place] [address] Dec, [facility] [address] [id number] [place] [address] Nov, [facility] [address] [id number] [place] [address] Nov, [facility] [address] [id number] [place] [address] Nov, [facility] [address] [id number] [place] [address] Nov, [facility] [address] [id number] [place] [address] Nov, [facility] [address] [id number] [place] [address] Nov, [facility] [address] [id number] [place] [address] Oct, [facility] [address] [facility] [id number] Oct, [facility] [address] [facility] [id number] Oct, [facility] [address] [facility] [id number] Oct, [facility] [address] [facility] [id number] Oct, [facility] [address] [id number] [place] [address] Oct, [facility] [address] [id number] [place] [address] Oct, [facility] [address] [id number] [place] [address] Oct, [facility] [address] [id number] [place] [address] Oct, [facility] [address] [id number] [place] [address] Oct, [facility] [address] [id number] [place] [address] Oct, [facility] [address] [id number] [place] [address] September, [facility] [address] [facility] [id number] [place] [address] Aug, [facility] [address] [id number] [place] [address] Aug, [facility] [address] [id number] [place] [address] Aug, [facility] [address] [id number] [place] [address] Aug, [facility] [address] [facility] [id number] [place] [address] Jul, [facility] [address] [id number] [place] [address] Jul, [facility] [address] [id number] [place] [address] Jul, [facility] [address] [id number] [place] [address] Jul, [facility] [address] [id number] [place] [address] Jul, [facility] [address] [id number] [place] [address] Jun, [facility] [address] [id number] [place] [address] Jun, [facility] [address] [id number] [place] [address] Jun, [facility] [address] [id number] [place] [address] May, [facility] [address] [id number] [place] [address] May, [facility] [address] [id number] [place] [address] May, [facility] [address] [id number] [place] [address] May, [facility] [address] [id number] [place] [address] May, [facility] [address] [id number] [place] [address] May, [facility] [address] [id number] [place] [address] Apr, [facility] [address] [id number] [place] [address] 18 Apr, 2012 [facility] [address] [id number] [place] [address] Apr, [facility] [address] [id number] [place] [address] Apr, [facility] [address] [id number] [place] [address] Apr, [facility] [address] [id number] [place] [address] Apr, [facility] [address] [id number] [place] [address] Apr, [facility] [address] [id number] [place] [address] Mar, [facility] [address] [id number] [place] [address] Mar, [facility] [address] [id number] [place] [address] Mar, [facility] [address] [id number] [place] [address] Mar, [facility] [address] [id number] [place] [address] 18 Jan, 2012 [facility] [id number] [place] [address] 10 Jan, 2012 [facility] [address] [id number] [place] [address] Jan, [facility] [address] [id number] [place] [address] 06 Jan, [address] [facility] [address] [id number] [place] [id number] Dec, [facility] [id number] [place] [address] Dec, [facility] [address] [id number] [place] [id number] Dec, [facility] [address] [address] Dec, [facility] [address] [address] Dec, [facility] [address] [address] Dec, [facility] [address] [address] Nov, [facility] [address] [address] Nov, [facility] [address] [address] Nov, IMMUNIZATIONS No Known Immunizations SOCIAL HISTORY [...] Stent placed 08/19/2017 Hospitalization History Syncope- [facility] 12/2017 Hospitalization History heart cath ( 06/23/18-06/25/2018) Hospitalization History heart problem, overnight stay 9
--- OUTSIDE RECORDS SUMMARY | 2019-11-03 19:27 | XMS REPORT ---
Author Author Anca Villalobos Organization [facility] Address [address] [place] [address] Care Team Providers Care Organizational Research Consultant Name Role Phone CHERYL Villalobos Unavailable PROBLEMS Type Condition ICD9-CM Code BYR83-DL Code Onset Dates Condition S tatus SNOMED Code Problem Esophageal reflux K21.9 Active 24 7416369 Problem Dyslipidemia E78.5 12 Oct, 2017 Active 3709 65425 Problem Unspecified hypothyroidism E03.9 Act hernesto 17429938 Problem Generalized anxiety disorder F41.1 Apr, 200 8 Active 11955219 Problem Shortness of breath R06.02 23 Apr, 2008 Active 654749108 Problem Pulmonary embolus I26.99 13 Oct, 2011 Active 03255499 Problem Nonintractable migraine G43.009 08 Oct, 2015 Act hernesto 005473675 Problem Pre-diabetes R73.03 Active 6094007 02 Problem Morbid obesity with BMI of 50.0-59.9, adult Z68.43 Active 026444126 Problem Hypothyroidism E03.9 Active 92977 008 Problem Morbid obesity E66.01 Active 34513 6002 Problem Unspecified sleep apnea G47.30 Active 04882174 Problem Personal history of pulmonary embolism Z86.711 Active 441875460 Problem Osteoarthritis of right knee M17.11 13 May, 201 0 Active 184660027 Problem Renal stones N20.0 Active 5540010 7 Problem Coronary artery disease I25.10 Active 18568276 Problem Hyperlipidemia LDL goal <70 E78.5 Ac tive 27438353 Problem Migraine with aura and without status migrainosu s, not intractable G43.109 Active 5200530 ALLERGIES No Information ENCOUNTERS Encounter Location Date Diagnosis [facility] [address] 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 and Dizziness R42 [facility] [address] [facility] [id number] [address] [place] [address] Apr, Non-recurrent acute suppurat hernesto otitis media of both ears without spontaneous rupture of tympanic membranes H66.003 [place] [address] [address] 08 Feb, 2019 Pre-diabetes R73.03 and Hyperlipidemia L DL goal <[address] [address] Feb, [place] [address] [address] Feb, [address] [address] Jan, [place] [address] [address] Jan, [address] [address] 18 Jan, 2019 Encounter for Medicare annual wellness e xam Z00.00 ; Hyperlipidemia LDL goal <70 E78.5 ; Coronary artery disease I25.10 ; Hypothyroidism E03.9 ; Osteoarthritis of right knee M17.11 ; Morbid obesity with BMI of 50.0-59.9, adult Z68.43 and Esophageal reflux K21.[address] [address] 13 Jan, 2019 Dysuria R30.0 and Hematuria, unspecified type R31.[address] [address] Jan, Hematuria, unspecified type R31.9 [facility] [address] [address] Dec, Hematuria, unspecified type R31.9 [facility] [id number] [place] [address] Nov, Hematuria, unspecified type R31.[address] [place] [address] Nov, Other microscopic hematuria R31.29 [facility] [address] [address] Nov, Vaginal gena B37.3 ; Other microscopi c hematuria R31.29 and Morbid obesity E66.01 [place] [address] [address] Nov, [place] [address] [address] Nov, [facility] [address] [place] [id number] [address] [place] [address] Nov, UTI symptoms R39.9 and Morbi d obesity E66.01 [place] [address] [address] Nov, [place] [address] [address] September, [place] [address] [address] September, [place] [address] [address] Aug, Right foot pain M79.671 and Morbid obesi ty E66.01 [facility] [address] [address] Jul, Right foot pain M79.671 and Morbid obesi ty E66.01 [facility] [address] [place] [id number] [place] [address] 12 Jul, 2018 Injury of right foot, initia l encounter S99.921A and Morbid obesity E66.01 [place] [address] [address] 05 Jul, 2018 Recurrent syncope R55 and Morbid obesity E66.01 [place] [address] [address] Jul, [place] [address] [address] Jun, Hematuria, unspecified type R31.9 and BM I 50.0-59.9, adult Z68.43 [place] [address] [address] 07 Jun, 2018 [place] [address] [place] [address] 04 Jun, 2018 halfway current use of ant icoagulant Z79.01 [facility] [address] [place] [address] May, Ankle pain, right M25.571 an d BMI 50.0-59.9, adult Z68.43 [place] [address] [address] May, [place] [address] [address] May, [place] [address] [address] Apr, [place] [address] [address] Apr, [place] [address] [address] Apr, [facility] [address] [place] [id number] [address] [place] [address] Apr, BMI 50.0-59.9, adult Z68.43 and Weakness R53.1 [place] [address] [address] Apr, [facility] [place] [address] [address] Apr, Dysuria R30.0 ; Hematuria R3 1.9 ; Renal lithiasis N20.0 and BMI 50.0-59.9, adult Z68.43 [place] [address] [address] Apr, [place] [address] [address] Apr, [place] [address] [address] Apr, Hypothyroidism E03.9 [place] [address] [address] Apr, Burning with urination R30.0 ; 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, 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 ; Acute bilateral low back pain without sciatica M54.5 and BMI 50.0-59.9, adult Z68.43 [place] [address] [address] Mar, Hypothyroidism E03.9 [place] [address] [address] Feb, [facility] [place] [address] [address] Jan, [place] [address] [address] 07 Jan, 2018 Acute non-recurrent maxillary sinusitis J01.00 and BMI 50.0-59.9, adult Z68.43 [facility] [place] [address] [address] 04 Jan, 2018 Congestion of upper respirat ory tract J98.8 and BMI 50.0-59.9, adult Z68.43 [place] [address] [address] Dec, Type 2 diabetes mellitus with diabetic n europathic arthropathy, 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 ; Morbid obesity with BMI of 50.0-59.9, adult Z68.43 ; Hypothyroidism E03.9 ; Coronary artery disease I25.10 ; Hyperlipidemia LDL goal <70 E78.5 ; Right lower quadrant abdominal pain R10.31 and Acute cystitis with hematuria N30.01 [facility] IN [facility] [address] [facility] [id number] [address] [place] [address] Dec, Migraine with aura and witho ut status migrainosus, not intractable G43.109 ; Dehydration symptoms R63.8 and BMI 50.0-59.9, adult Z68.43 [facility] [address] [address] Oct, [place] [address] [address] Oct, [place] [address] [address] Oct, [place] [address] [address] September, [place] [address] [address] September, Type 2 diabetes mellitus with diabetic n europathic arthropathy, 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 ; Hyperlipidemia, unspecified hyperlipidemia type E78.5 ; Personal history of pulmonary embolism Z86.711 ; Coronary artery disease I25.10 and Hypothyroidism E03.9 [facility] [address] [address] September, [place] [address] [address] Aug, Type 2 diabetes mellitus with diabetic [...] without aura and with status migrainosus G43.011 [facility] [address] [address] Aug, [place] [address] [address] Aug, [place] [address] [address] Jul, Renal stones N20.0 [facility] IN [facility] [address] [facility] [id number] [address] [address] 19 Jun, 2017 Back pain M54.9 ; Kidney sto radha N20.0 and BMI 50.0-59.9, adult Z68.43 [place] [address] [address] Jun, [place] [address] [address] Apr, [place] [address] [address] Apr, [place] [address] [address] Apr, Right foot pain M79.671 ; Acute gout inv olving toe of right foot, 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 and Arthritis M19.90 [place] [address] [address] 06 Apr, 2017 Gastroesophageal reflux disease without esophagitis K21.9 [place] [address] [address] 16 Mar, 2017 Hypothyroidism, unspecified E03.9 [place] [address] [address] 11 Feb, 2017 [place] [address] [address] 25 Jan, 2017 Cervicalgia of xgeuqexv-xykezud-xpupb re gion M54.2 and Persistent headaches R51 [place] [address] [address] 20 Jan, 2017 [place] [address] [address] 12 Jan, 2017 Intractable migraine without aura and wi th status migrainosus G43.011 ; Cervical spine pain M54.2 ; Hyperlipidemia, unspecified hyperlipidemia type E78.5 ; Hypothyroidism E03.9 and Metabolic syndrome E88.81 [place] [address] [address] Jan, Hypothyroidism, unspecified E03.9 [place] [address] [address] Dec, Hypothyroidism, unspecified E03.9 [place] [address] [address] Dec, Hypothyroidism E03.[address] [address] Nov, Laceration of left great toe w/o foreign body w/o damage to nail, initial encounter S91.112A [facility] [address] [facility] [id number] [address] [place] [address] Oct, Pain in left knee M25.562 an d Arthritis M19.[address] [address] Oct, Hypothyroidism, unspecified E03.9 and Hy perlipidemia, unspecified hyperlipidemia type E78.[address] [address] Oct, Gastroesophageal reflux disease without esophagitis K21.[address] [address] 14 Oct, 2016 Metabolic syndrome E88.81 ; Personal his tory of pulmonary embolism Z86.711 ; Other specified hypothyroidism E03.8 and Hyperlipidemia, unspecified hyperlipidemia type E78.5 [place] [address] [address] 13 Oct, 2017 Personal history of pulmonary embolism Z 86.711 ; Dysuria R30.0 ; Metabolic syndrome E88.81 ; Other specified hypothyroidism E03.8 ; Hyperlipidemia, unspecified hyperlipidemia type E78.5 and Morbid obesity with BMI of 50.0-59.9, adult Z68.43 [place] [address] [address] September, [facility] [address] [address] September, Wrist pain, left M25.532 and Acute pain of left knee M25.[address] [address] Jul, Dysuria R30.0 [place] [address] [address] Jul, Dysuria R30.[address] [address] Jul, Left lower quadrant pain R10.32 [place] [address] [address] Jul, [address] [address] Jul, Coronary artery disease I25.10 ; Family history of diabetes mellitus Z83.3 ; Morbid obesity with BMI of 50.0-59.9, adult Z68.43 ; Metabolic syndrome E88.81 ; Personal history of pulmonary embolism Z86.711 ; Gastroesophageal reflux disease without esophagitis K21.9 ; Hypothyroidism, unspecified E03.9 ; Hyperlipidemia, unspecified hyperlipidemia type E78.5 and Left lower quadrant pain R10.32 [facility] [address] [address] Jul, [facility] [address] [address] 08 Jul, 2016 Morbid obesity with BMI of 5 0.0-59.9, adult Z68.43 [facility] [address] [address] 07 Jul, 2016 Generalized abdominal pain R 10.84 [facility] [address] [address] 02 Jun, 2016 Muscle strain of right upper back, initial encounter S29.012A [facility] [address] [address] May, Foreign body (FB) in soft ti ssue M79.[address] [address] Mar, Hypothyroidism, unspecified E03.9 and Ar thritis M19.[address] [address] Feb, Coronary artery disease I25.10 ; Morbid obesity with BMI of 50.0-59.9, adult Z68.43 ; Metabolic syndrome E88.81 ; Gastroesophageal reflux disease without esophagitis K21.9 ; Hypothyroidism, unspecified E03.9 ; Personal history of pulmonary embolism Z86.711 and Hyperlipidemia, unspecified hyperlipidemia type E78.[address] [address] Feb, [facility] [address] [address] Jan, Acute right-sided thoracic b ack pain M54.[address] [address] Jan, Acute pain of left knee M25.[address] [address] Dec, Dysuria R30.0 ; Metabolic syndrome E88.8 1 ; Acute pain of left knee M25.562 ; Acute cystitis with hematuria N30.01 and Acute left eye pain H57.12 [place] [address] [address] Dec, [place] [address] [address] Dec, [place] [address] [address] Dec, Hypothyroidism, unspecified E03.9 [place] [address] [address] Dec, [address] [address] Nov, Peripheral edema R60.9 and Acute pain of left knee M25.562 [facility] [address] [address] September, [address] [address] September, Metabolic syndrome E88.81 and Allergy, s ubsequent encounter T78.40XD [facility] [address] [address] September, Muscle strain T14.[address] [address] Aug, Chest pressure R07.89 ; Metabolic syndro me E88.81 ; Morbid obesity with BMI of 50.0-59.9, adult Z68.43 ; Esophageal reflux 530.81 and Shortness of breath R06.[address] [address] Aug, [address] [address] Aug, [address] [address] 11 Apr, 2016 Hypothyroidism, unspecified E03.9 [facility] [address] [address] Aug, Routine health maintenance Z00.00 [facility] [place] [address] [place] [id number] [place] [address] Aug, [place] [address] [address] 31 Jul, 2015 Routine health maintenance Z00.00 ; Fami ly history of diabetes mellitus Z83.3 ; Family history of cancer Z80.9 and Morbid obesity with BMI of 50.0-59.9, adult Z68.43 [facility] [address] [address] 28 Jul, 2015 Allergic rhinitis J30.9 and Postnasal drip R09.[address] [address] Jul, Influenza J11.1 [facility] [place] [id number] [place] [address] Jul, Dysuria R30.[address] [address] Apr, [address] [address] Mar, Acute upper respiratory infection, unspe cified J06.9 and Hypothyroidism E03.[address] [address] Mar, [address] [address] Feb, Coronary artery disease I25.[address] [address] Feb, Left foot pain M79.[address] [address] Jan, UTI (urinary tract infection) 599.0 [place] [id number] [address] Jan, Urinary tract infection, site not specif ied 599.0 [facility] [address] [address] Jan, Urinary tract infection, site not specif ied 599.0 [facility] [address] [address] Jan, [facility] [address] [address] Dec, Headache 784.0 [place] [address] [address] Dec, Urinary tract infection, site not specif ied 599.0 [place] [address] [address] Dec, Urinary tract infection, site not specif ied 599.0 [place] [address] [address] Dec, Urinary tract infection, site not specif ied 599.0 [place] [address] [address] Nov, Unspecified sleep apnea 780.57 ; Encount er for long-term (current) use of anticoagulants V58.61 ; Routine general medical examination at health care facility V70.0 and Arthritis of both knees 716.96 [place] [address] [address] September, Cat bite of hand 882.0 and Rectal bleedi ng 569.3 [place] [address] [address] Aug, [place] [address] [address] Aug, [place] [address] [address] Jul, [place] [address] [id number] [place] [address] Jul, [facility] [address] [facility] [id number] [place] [address] Jul, [facility] [address] [id number] [place] [address] Jul, [facility] [address] [id number] [place] [address] Jul, [facility] [address] [id number] [place] [address] Jul, [facility] [address] [id number] [place] [address] Jul, [facility] [address] [id number] [place] [address] Jul, [facility] [address] [id number] [place] [address] May, [facility] [address] [id number] [place] [address] May, [facility] [address] [id number] [place] [address] May, [facility] [address] [id number] [place] [address] May, [facility] [address] [id number] [place] [address] May, [facility] [address] [id number] [place] [address] May, [facility] [address] [id number] [place] [address] May, [facility] [address] [id number] [place] [address] Mar, [facility] [address] [id number] [place] [address] Mar, [facility] [address] [id number] [place] [address] Jan, [facility] [address] [id number] [place] [address] 08 Jan, 2013 [facility] [address] [facility] [id number] [place] [address] Jan, 2013 [facility] [address] [facility] [id number] [place] [address] Jan, 2013 [facility] [address] [id number] [place] [address] Jan, 2013 [facility] [address] [facility] [id number] [place] [address] Jan, 2013 [facility] [address] [id number] [place] [address] Dec, [facility] [address] [id number] [place] [address] Dec, [facility] [address] [id number] [place] [address] Dec, [facility] [address] [id number] [place] [address] Dec, [facility] [address] [id number] [place] [address] Dec, [facility] [address] [id number] [place] [address] Dec, [facility] [address] [id number] [place] [address] Dec, [facility] [address] [id number] [place] [address] Dec, [facility] [address] [facility] [id number] [place] [address] Dec, [facility] [address] [id number] [place] [address] Dec, [facility] [address] [id number] [place] [address] Nov, [facility] [address] [id number] [place] [address] Nov, [facility] [address] [id number] [facility] [address] September, [facility] [address] [id number] [facility] [address] September, [facility] [address] [id number] [facility] [address] September, [facility] [address] [id number] [facility] [address] September, [facility] [address] [id number] [facility] [address] Aug, [facility] [address] [id number] [place] [address] Aug, [facility] [address] [id number] [place] [address] Aug, [facility] [address] [id number] [place] [address] Aug, [facility] [address] [id number] [place] [address] Aug, [facility] [address] [id number] [place] [address] Aug, [facility] [address] [id number] [place] [address] Aug, [facility] [address] [id number] [place] [address] Aug, [facility] [address] [id number] [place] [address] Aug, [facility] [id number] [place] [address] Aug, [facility] [address] [id number] [place] [address] Aug, [facility] [address] [id number] [place] [address] Aug, [facility] [address] [id number] [place] [address] Jul, [facility] [address] [facility] [id number] [place] [address] Jul, [facility] [address] [id number] [place] [address] Jul, [facility] [address] [id number] [place] [address] Jul, [facility] [address] [id number] [place] [address] Jul, [facility] [address] [id number] [place] [address] Jul, [facility] [address] [id number] [place] [address] Jul, [facility] [address] [id number] [place] [address] Jul, [facility] [address] [id number] [place] [address] Jul, [facility] [address] [id number] [place] [address] Jul, [facility] [address] [id number] [place] [address] Jun, [facility] [address] [id number] [place] [address] Jun, [facility] [address] [id number] [place] [address] Jun, [facility] [address] [facility] [id number] [place] [address] Jun, [facility] [address] [id number] [place] [address] Jun, [facility] [address] [id number] [place] [address] Jun, [facility] [address] [id number] [place] [address] Jun, [facility] [address] [facility] [id number] [place] [address] Jun, [facility] [address] [id number] [place] [address] Jun, [facility] [address] [id number] [place] [address] Jun, [facility] [address] [id number] [place] [address] Jun, [facility] [address] [id number] [place] [address] Jun, [facility] [address] [id number] [place] [address] May, [facility] [address] [id number] [place] [address] May, [facility] [address] [id number] [place] [address] May, [facility] [address] [id number] [place] [address] May, [facility] [address] [id number] [place] [address] May, [facility] [address] [id number] [place] [address] May, [facility] [address] [id number] [place] [address] May, [facility] [address] [id number] [place] [address] May, [facility] [address] [id number] [place] [address] May, [facility] [address] [id number] [place] [address] May, [facility] [address] [id number] [place] [address] May, [facility] [address] [id number] [place] [address] 08 May, 2013 [facility] [address] [id number] [place] [address] May, [facility] [address] [id number] [place] [address] May, [facility] [address] [id number] [place] [address] May, [facility] [address] [id number] [place] [address] Apr, [facility] [address] [id number] [place] [address] Apr, [facility] [address] [id number] [place] [address] Apr, [facility] [address] [id number] [place] [address] Apr, [facility] [address] [id number] [place] [address] Mar, [facility] [address] [id number] [place] [address] Mar, [facility] [address] [id number] [place] [address] Mar, [facility] [address] [id number] [place] [address] Mar, [facility] [address] [id number] [place] [address] Mar, [facility] [address] [id number] [place] [address] Mar, [facility] [id number] [place] [address] Mar, [facility] [address] [id number] [place] [address] Mar, [facility] [address] [id number] [place] [address] Mar, [facility] [address] [id number] [place] [address] Mar, [facility] [address] [id number] [place] [address] Mar, [facility] [address] [id number] [place] [address] Mar, [facility] [address] [id number] [place] [address] Feb, [facility] [address] [id number] [place] [address] 18 Jan, 2013 [facility] [address] [id number] [place] [address] 17 Jan, 2013 [facility] [address] [id number] [place] [address] 06 Jan, 2012 [facility] [address] [id number] [place] [address] 04 Jan, 2013 [facility] [address] [id number] [place] [address] Jan, [facility] [address] [id number] [place] [address] Dec, [facility] [address] [id number] [place] [address] Dec, [facility] [address] [id number] [place] [address] Dec, [facility] [address] [id number] [place] [address] 16 Dec, 2012 [facility] [address] [id number] [place] [address] Dec, [facility] [address] [id number] [place] [address] Dec, [facility] [address] [id number] [place] [address] Dec, [facility] [address] [id number] [place] [address] Dec, [facility] [address] [id number] [place] [address] Nov, [facility] [address] [id number] [place] [address] Nov, [facility] [address] [id number] [place] [address] Nov, [facility] [address] [id number] [place] [address] Nov, [facility] [address] [id number] [place] [address] Nov, [facility] [address] [id number] [place] [address] Nov, [facility] [address] [id number] [place] [address] Oct[facility] [address] [facility] [id number] Oct, [facility] [address] [facility] [id number] Oct, [facility] [address] [facility] [id number] Oct, [facility] [address] [facility] [id number] Oct, [facility] [address] [id number] [place] [address] Oct, [facility] [address] [id number] [place] [address] Oct, [facility] [address] [id number] [place] [address] Oct, [facility] [address] [id number] [place] [address] Oct, [facility] [address] [id number] [place] [address] 10 Oct, 2012 [facility] [address] [id number] [place] [address] Oct, [facility] [address] [id number] [place] [address] September, [facility] [address] [facility] [id number] [facility] [address] Aug, [facility] [address] [id number] [place] [address] Aug, [facility] [address] [id number] [place] [address] Aug, [facility] [address] [facility] [id number] [facility] [address] Aug, [facility] [address] [id number] [place] [address] 24 Jul, 2012 [facility] [address] [id number] [place] [address] Jul, [facility] [address] [id number] [place] [address] Jul, [facility] [address] [id number] [place] [address] Jul, [facility] [address] [id number] [place] [address] Jul, [facility] [address] [id number] [place] [address] Jun, [facility] [address] [id number] [place] [address] Jun, [facility] [address] [id number] [place] [address] Jun, [facility] [address] [id number] [place] [address] May, [facility] [address] [id number] [place] [address] 24 May, 2012 [facility] [address] [id number] [place] [address] 14 May, 2012 [facility] [address] [id number] [place] [address] 11 May, 2012 [facility] [address] [id number] [place] [address] May, [facility] [address] [id number] [place] [address] 04 May, 2012 [facility] [address] [id number] [place] [address] 18 Apr, 2012 [facility] [address] [id number] [place] [address] 18 Apr, 2012 [facility] [address] [id number] [place] [address] 13 Apr, 2012 [facility] [address] [id number] [place] [address] 13 Apr, 2012 [facility] [address] [id number] [place] [address] 13 Apr, 2012 [facility] [address] [id number] [place] [address] Apr, [facility] [address] [id number] [place] [address] Apr, [facility] [address] [id number] [place] [address] Mar, [facility] [address] [id number] [place] [address] Mar, [facility] [address] [id number] [place] [address] Mar, [facility] [address] [id number] [place] [address] Mar, [facility] [address] [id number] [place] [address] 18 Jan, 2012 [facility] [address] [id number] [place] [address] 10 Jan, 2012 [facility] [address] [id number] [place] [address] Jan, [facility] [id number] [place] [address] Jan, [facility] [address] [id number] [place] [id number] Dec, [facility] [id number] [place] [address] Dec, [facility] [address] [id number] [place] [id number] Dec, [facility] [address] [address] Dec, [facility] [address] [address] Dec, [facility] [address] [address] Dec, [facility] [address] [address] Nov, [facility] [address] [address] Nov, [facility] [id number] [place] [address] Nov, IMMUNIZATIONS No Known Immunizations SOCIAL HISTORY Never Assessed REASON FOR VISIT PLAN OF CARE VITAL SIGNS Height 62 in 2013-07-14 Temperature 98.6 degrees Fahrenheit 2013-07-14 Heart Rate 75 bpm 2013-07-14 Respiratory Rate 22 2013-07-14 Blood pressure systolic 125 mmHg 2013-07-14 Blood pressure diastolic 80 mmHg 2013-07-14 MEDICATIONS Unknown Medications RESULTS No Results PROCEDURES Procedure Date Ordered Result Body Site MRI JNT OF LWR EXTRE W/O DYE July 14, 2013 INSTRUCTIONS MEDICATIONS ADMINISTERED No Known [...] asthma(493.90) Medical History Near syncope Medical History halfway current use of anticoagulant Medical History Renal [...]
--- OUTSIDE RECORDS SUMMARY | 2019-11-03 19:27 | XMS REPORT ---
Author Author Anca Lucero Doctor Organization [facility] Address Unknown Phone Unavailable Care Team Providers Care Paratransit Operator Name Role Phone Migration, Doctor Unavailable Unavailable PROBLEMS Type Condition ICD9-CM Code BSU55-ED Code Onset Dates Condition S tatus SNOMED Code Problem Esophageal reflux K21.9 Active 24 5996979 Problem Dyslipidemia E78.5 12 Oct, 2017 Active 3709 81903 Problem Unspecified hypothyroidism E03.9 Act hernesto 29648051 Problem Generalized anxiety disorder F41.1 Apr, 200 8 Active 43447845 Problem Shortness of breath R06.02 Apr, Active 786634794 Problem Pulmonary embolus I26.99 13 Oct, 2011 Active 80801188 Problem Nonintractable migraine G43.009 08 Oct, 2015 Act hernesto 205457723 Problem Pre-diabetes R73.03 Active 4563102 02 Problem Morbid obesity with BMI of 50.0-59.9, adult Z68.43 Active 453557963 Problem Hypothyroidism E03.9 Active 47357 008 Problem Morbid obesity E66.01 Active 39424 6002 Problem Unspecified sleep apnea G47.30 Active 57376326 Problem Personal history of pulmonary embolism Z86.711 Active 004698225 Problem Osteoarthritis of right knee M17.11 13 May, 201 0 Active 427466576 Problem Renal stones N20.0 Active 3177606 7 Problem Coronary artery disease I25.10 Active 23030371 Problem Hyperlipidemia LDL goal <70 E78.5 Ac tive 81480644 Problem Migraine with aura and without status migrainosu s, not intractable G43.109 Active 7506588 ALLERGIES No Information ENCOUNTERS Encounter Location Date Diagnosis [facility] [address] [id number] [place] [address] 07 Jun, 2019 Personal history of pulmonary embolism Z 86.711 [facility] [address] [id number] [place] [address] 07 Jun, 2019 Personal history of pulmonary embolism Z 86.711 [place] [id number] [id number] [place] [address] May, [facility] [address] [place] [address] May, 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 and Dizziness R42 [facility] [address] [facility] [id number] [address] [place] [address] Apr, Non-recurrent acute suppurat hernesto otitis media of both ears without spontaneous rupture of tympanic membranes H66.003 [place] [address] [address] 08 Feb, 2019 Pre-diabetes R73.03 and Hyperlipidemia L DL goal <70 E78.5 [place] [address] [place] [id number] [place] [address] Feb, [place] [address] [address] Feb, [place] [address] [place] [id number] [place] [address] Jan, [place] [address] [address] Jan, [place] [address] [address] 18 Jan, 2019 Encounter for Medicare annual wellness e xam Z00.00 ; Hyperlipidemia LDL goal <70 E78.5 ; Coronary artery disease I25.10 ; Hypothyroidism E03.9 ; Osteoarthritis of right knee M17.11 ; Morbid obesity with BMI of 50.0-59.9, adult Z68.43 and Esophageal reflux K21.9 [place] [address] [address] Jan, Dysuria R30.0 and Hematuria, unspecified type R31.9 [place] [address] [place] [id number] [place] [address] Jan, Hematuria, unspecified type R31.9 [place] [address] [place] [address] [place] [address] Dec, Hematuria, unspecified type R31.9 [facility] [address] [address] Nov, Hematuria, unspecified type R31.[address] [place] [address] Nov, Other microscopic hematuria R31.29 [place] [address] [address] Nov, Vaginal gena B37.3 ; Other microscopi c hematuria R31.29 and Morbid obesity E66.01 [place] [address] [address] Nov, [place] [address] [address] Nov, [facility] N [place] [id number] [address] [place] [address] Nov, UTI symptoms R39.9 and Morbi d obesity E66.01 [place] [address] [address] Nov, [place] [address] [address] September, [place] [address] [address] September, [place] [address] [address] Aug, Right foot pain M79.671 and Morbid obesi ty E66.01 [place] [address] [address] Jul, Right foot pain M79.671 and Morbid obesi ty E66.01 [facility] [address] [facility] [id number] [address] [place] [address] Jul, Injury of right foot, initia l encounter S99.921A and Morbid obesity E66.01 [place] [address] [place] [id number] [place] [address] Jul, Recurrent syncope R55 and Morbid obesity E66.01 [place] [address] [place] [id number] [place] [address] Jul, [place] [address] [address] Jun, Hematuria, unspecified type R31.9 and BM I 50.0-59.9, adult Z68.43 [place] [address] [place] [id number] [place] [address] 07 Jun, 2018 [place] [address] [place] [address] 04 Jun, 2018 [facility] current use of ant icoagulant Z79.01 [facility] N [facility] [id number] [address] [place] [address] May, Ankle pain, right M25.571 an d BMI 50.0-59.9, adult Z68.43 [place] [address] [address] May, [place] [address] [address] May, [place] [address] [address] Apr, [place] [address] [address] Apr, [place] [address] [address] Apr, [facility] [address] [facility] [id number] [address] [place] [address] Apr, BMI 50.0-59.9, adult Z68.43 and Weakness R53.1 [place] [address] [address] Apr, [facility] [place] [address] [address] Apr, Dysuria R30.0 ; Hematuria R3 1.9 ; Renal lithiasis N20.0 and BMI 50.0-59.9, adult Z68.43 [place] [address] [address] Apr, [place] [address] [address] Apr, [place] [address] [address] Apr, Hypothyroidism E03.9 [place] [address] [address] Apr, Burning with urination R30.0 ; 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, 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 ; Acute bilateral low back pain without sciatica M54.5 and BMI 50.0-59.9, adult Z68.43 [place] [address] [address] Mar, Hypothyroidism E03.9 [place] [address] [address] Feb, [facility] [place] [address] [address] 15 Jan, 2018 [place] [address] [address] 07 Jan, 2018 Acute non-recurrent maxillary sinusitis J01.00 and BMI 50.0-59.9, adult Z68.43 [facility] [address] [address] 04 Jan, 2018 Congestion of upper respirat ory tract J98.8 and BMI 50.0-59.9, adult Z68.43 [place] [address] [address] Dec, Type 2 diabetes mellitus with diabetic n europathic arthropathy, 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 ; Morbid obesity with BMI of 50.0-59.9, adult Z68.43 ; Hypothyroidism E03.9 ; Coronary artery disease I25.10 ; Hyperlipidemia LDL goal <70 E78.5 ; Right lower quadrant abdominal pain R10.31 and Acute cystitis with hematuria N30.01 [facility] [address] [facility] [id number] [address] [place] [address] Dec, Migraine with aura and witho ut status migrainosus, not intractable G43.109 ; Dehydration symptoms R63.8 and BMI 50.0-59.9, adult Z68.43 [place] [address] [address] Oct, [place] [address] [address] Oct, [place] [address] [address] Oct, [facility] [address] [address] September, [place] [address] [address] September, Type 2 diabetes mellitus with diabetic n europathic arthropathy, 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 ; Hyperlipidemia, unspecified hyperlipidemia type E78.5 ; Personal history of pulmonary embolism Z86.711 ; Coronary artery disease I25.10 and Hypothyroidism E03.9 [facility] [address] [address] September, [place] [address] [address] Aug, Type 2 diabetes mellitus with diabetic [...] and with status migrainosus G43.011 [place] [address] [address] Aug, [place] [address] [address] Aug, [place] [address] [address] Jul, Renal stones N20.0 [facility] [address] [facility] [id number] [address] [place] [address] Jun, Back pain M54.9 ; Kidney sto radha N20.0 and BMI 50.0-59.9, adult Z68.43 [place] [address] [address] Jun, [place] [address] [address] Apr, [place] [address] [address] Apr, [place] [address] [address] Apr, Right foot pain M79.671 ; Acute gout inv olving toe of right foot, 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 and Arthritis M19.90 [place] [address] [address] 06 Apr, 2017 Gastroesophageal reflux disease without esophagitis K21.9 [place] [address] [address] 16 Mar, 2017 Hypothyroidism, unspecified E03.9 [place] [address] [address] 11 Feb, 2017 [place] [address] [address] 25 Jan, 2017 Cervicalgia of mhshslaw-abxfoen-uoijx re gion M54.2 and Persistent headaches R51 [place] [address] [address] 20 Jan, 2017 [place] [address] [address] 12 Jan, 2017 Intractable migraine without aura and wi th status migrainosus G43.011 ; Cervical spine pain M54.2 ; Hyperlipidemia, unspecified hyperlipidemia type E78.5 ; Hypothyroidism E03.9 and Metabolic syndrome E88.81 [place] [address] [address] Jan, Hypothyroidism, unspecified E03.9 [place] [address] [address] Dec, Hypothyroidism, unspecified E03.9 [place] [address] [address] Dec, Hypothyroidism E03.9 [place] [address] [address] Nov, Laceration of left great toe w/o foreign body w/o damage to nail, initial encounter S91.112A [facility] [address] [facility] [id number] [address] [place] [address] Oct, Pain in left knee M25.562 an d Arthritis M19.90 [place] [address] [address] Oct, Hypothyroidism, unspecified E03.9 and Hy perlipidemia, unspecified hyperlipidemia type E78.5 [place] [address] [address] Oct, Gastroesophageal reflux disease without esophagitis K21.9 [place] [address] [address] 14 Oct, 2016 Metabolic syndrome E88.81 ; Personal his tory of pulmonary embolism Z86.711 ; Other specified hypothyroidism E03.8 and Hyperlipidemia, unspecified hyperlipidemia type E78.[address] [address] 13 Oct, 2017 Personal history of pulmonary embolism Z 86.711 ; Dysuria R30.0 ; Metabolic syndrome E88.81 ; Other specified hypothyroidism E03.8 ; Hyperlipidemia, unspecified hyperlipidemia type E78.5 and Morbid obesity with BMI of 50.0-59.9, adult Z68.[address] [address] September, [facility] [address] [address] September, Wrist pain, left M25.532 and Acute pain of left knee M25.[address] [address] Jul, Dysuria R30.[address] [address] Jul, Dysuria R30.[address] [address] Jul, Left lower quadrant pain R10.[address] [address] Jul, [address] [address] Jul, Coronary artery disease I25.10 ; Family history of diabetes mellitus Z83.3 ; Morbid obesity with BMI of 50.0-59.9, adult Z68.43 ; Metabolic syndrome E88.81 ; Personal history of pulmonary embolism Z86.711 ; Gastroesophageal reflux disease without esophagitis K21.9 ; Hypothyroidism, unspecified E03.9 ; Hyperlipidemia, unspecified hyperlipidemia type E78.5 and Left lower quadrant pain R10.32 [facility] [place] [id number] [place] [address] Jul, [facility] [address] [address] Jul, Morbid obesity with BMI of 5 0.0-59.9, adult Z68.43 [facility] [address] [address] Jul, Generalized abdominal pain R 10.84 [facility] [address] [address] 02 Jun, 2016 Muscle strain of right upper back, initial encounter S29.012A [facility] [address] [address] May, Foreign body (FB) in soft ti ssue M79.[address] [address] Mar, Hypothyroidism, unspecified E03.9 and Ar thritis M19.[address] [address] Feb, Coronary artery disease I25.10 ; Morbid obesity with BMI of 50.0-59.9, adult Z68.43 ; Metabolic syndrome E88.81 ; Gastroesophageal reflux disease without esophagitis K21.9 ; Hypothyroidism, unspecified E03.9 ; Personal history of pulmonary embolism Z86.711 and Hyperlipidemia, unspecified hyperlipidemia type E78.[address] [address] Feb, [facility] [address] [address] Jan, Acute right-sided thoracic b ack pain M54.[address] [address] Jan, Acute pain of left knee M25.[address] [address] Dec, Dysuria R30.0 ; Metabolic syndrome E88.8 1 ; Acute pain of left knee M25.562 ; Acute cystitis with hematuria N30.01 and Acute left eye pain H57.[address] [address] Dec, [place] [address] [address] Dec, [place] [address] [address] Dec, Hypothyroidism, unspecified E03.9 [place] [address] [address] Dec, [place] [address] [address] Nov, Peripheral edema R60.9 and Acute pain of left knee M25.562 [facility] [place] [address] [place] [id number] [place] [address] September, [place] [address] [address] September, Metabolic syndrome E88.81 and Allergy, s ubsequent encounter T78.40XD [facility] [place] [address] [facility] [id number] [address] [place] [address] September, Muscle strain T14.8 [place] [address] [address] Aug, Chest pressure R07.89 ; Metabolic syndro me E88.81 ; Morbid obesity with BMI of 50.0-59.9, adult Z68.43 ; Esophageal reflux 530.81 and Shortness of breath R06.02 [place] [address] [address] Aug, [place] [address] [address] Aug, [place] [address] [address] Aug, Hypothyroidism, unspecified E03.9 [place] [address] [address] Aug, Routine health maintenance Z00.00 [facility] [place] [address] [facility] [id number] [address] [place] [address] Aug, [place] [address] [address] 31 Jul, 2015 Routine health maintenance Z00.00 ; Fami ly history of diabetes mellitus Z83.3 ; Family history of cancer Z80.9 and Morbid obesity with BMI of 50.0-59.9, adult Z68.43 [facility] [place] [address] [place] [id number] [place] [address] 28 Jul, 2015 Allergic rhinitis J30.9 and Postnasal drip R09.[address] [address] 18 Jul, 2015 Influenza J11.1 [facility] [address] [address] Jul, Dysuria R30.0 [place] [address] [address] Apr, [address] [address] Mar, Acute upper respiratory infection, unspe cified J06.9 and Hypothyroidism E03.[address] [address] Mar, [place] [address] [address] Feb, Coronary artery disease I25.10 [place] [address] [address] Feb, Left foot pain M79.[address] [address] Jan, UTI (urinary tract infection) 599.[address] [address] Jan, Urinary tract infection, site not specif ied 599.0 [facility] [address] [place] [id number] [place] [address] Jan, Urinary tract infection, site not specif ied 599.0 [facility] [address] [address] Jan, [facility] [address] [address] Dec, Headache 784.0 [facility] [address] [address] Dec, Urinary tract infection, site not specif ied 599.0 [place] [address] [address] Dec, Urinary tract infection, site not specif ied 599.0 [place] [address] [address] Dec, Urinary tract infection, site not specif ied 599.0 [place] [address] [address] Nov, Unspecified sleep apnea 780.57 ; Encount er for long-term (current) use of anticoagulants V58.61 ; Routine general medical examination at health care facility V70.0 and Arthritis of both knees 716.96 [place] [address] [address] September, Cat bite of hand 882.0 and Rectal bleedi ng 569.3 [facility] [address] [place] [id number] [place] [address] Aug, [facility] [address] [address] Aug, [facility] [address] [address] Jul, [facility] [address] [address] Jul, [facility] [address] [place] [address] Jul, [facility] [address] [id number] [place] [address] Jul, [facility] [address] [id number] [place] [address] Jul, [facility] [address] [id number] [place] [address] Jul, [facility] [address] [id number] [place] [address] Jul, [facility] [address] [id number] [place] [address] Jul, [facility] [address] [id number] [place] [address] May, [facility] [address] [id number] [place] [address] May, [facility] [address] [id number] [place] [address] May, [facility] [address] [id number] [place] [address] May, [facility] [address] [id number] [place] [address] May, [facility] [address] [id number] [place] [address] May, [facility] [address] [id number] [place] [address] May, [facility] [address] [id number] [place] [address] Mar, [facility] [address] [id number] [place] [address] Mar, [facility] [address] [id number] [place] [address] Jan, [facility] [address] [id number] [place] [address] Jan, [facility] [address] [id number] [place] [address] 08 Jan, 2013 [facility] [address] [facility] [id number] [place] [address] Jan, 2013 [facility] [address] [facility] [id number] [place] [address] Jan, 2013 [facility] [address] [id number] [place] [address] Jan, 2013 [facility] [address] [facility] [id number] [place] [address] Dec, [facility] [address] [id number] [place] [address] Dec, [facility] [address] [id number] [place] [address] Dec, [facility] [address] [id number] [place] [address] Dec, [facility] [address] [id number] [place] [address] Dec, [facility] [address] [id number] [place] [address] Dec, [facility] [address] [id number] [place] [address] Dec, [facility] [address] [id number] [place] [address] Dec, [facility] [address] [id number] [place] [address] Dec, [facility] [address] [facility] [id number] [place] [address] Dec, [facility] [address] [id number] [place] [address] Nov, [facility] [address] [id number] [place] [address] Nov, [facility] [address] [id number] [place] [address] September, [facility] [address] [facility] [id number] [place] [address] September, [facility] [address] [facility] [id number] [place] [address] September, [facility] [address] [id number] [place] [address] September, [facility] [address] [id number] [place] [address] Aug, [facility] [address] [facility] [id number] [place] [address] Aug, [facility] [address] [id number] [place] [address] Aug, [facility] [address] [id number] [place] [address] Aug, [facility] [address] [id number] [place] [address] Aug, [facility] [address] [id number] [place] [address] Aug, [facility] [address] [id number] [place] [address] Aug, [facility] [address] [id number] [place] [address] Aug, [facility] [address] [id number] [place] [address] Aug, [facility] [place] [facility] [address] [facility] [id number] [place] [address] Aug, [facility] [place] [facility] [address] [id number] [place] [address] Aug, [facility] [place] [facility] [address] [id number] [place] [address] Aug, [facility] [place] [facility] [address] [id number] [place] [address] Jul, [facility] [place] [facility] [address] [id number] [place] [address] Jul, [facility] [place] [facility] [address] [facility] [id number] [place] [address] Jul, [facility] [place] [facility] [address] [id number] [place] [address] Jul, [facility] [place] [facility] [address] [id number] [place] [address] Jul, [facility] [place] [facility] [address] [id number] [place] [address] Jul, [facility] [place] [facility] [address] [id number] [place] [address] Jul, [facility] [place] [facility] [address] [id number] [place] [address] Jul, [facility] [place] [facility] [address] [id number] [place] [address] Jul, [facility] [place] [facility] [address] [id number] [place] [address] Jul, [facility] [place] [facility] [address] [id number] [place] [address] Jun, [facility] [place] [facility] [address] [id number] [place] [address] Jun, [facility] [place] [facility] [address] [id number] [place] [address] Jun, [facility] [place] [facility] [address] [id number] [place] [address] Jun, [facility] [place] [facility] [address] [id number] [place] [address] Jun, [facility] [place] [facility] [address] [id number] [place] [address] Jun, [facility] [place] [facility] [address] [id number] [place] [address] Jun, [facility] [place] [facility] [address] [id number] [place] [address] Jun, [facility] [place] [facility] [address] [facility] [id number] [place] [address] Jun, [facility] [place] [facility] [address] [facility] [id number] [place] [address] Jun, [facility] [place] [facility] [address] [facility] [id number] [place] [address] Jun, [facility] [place] [facility] [address] [facility] [id number] [place] [address] Jun, [facility] [facility] [address] [facility] [id number] [place] [address] May, [facility] [address] [id number] [place] [address] May, [facility] [address] [id number] [place] [address] May, [facility] [address] [id number] [place] [address] May, [facility] [address] [id number] [place] [address] May, [facility] [address] [id number] [place] [address] May, [facility] [address] [id number] [place] [address] May, [facility] [address] [id number] [place] [address] May, [facility] [address] [id number] [place] [address] May, [facility] [address] [id number] [place] [address] May, [facility] [address] [id number] [place] [address] May, [facility] [address] [id number] [place] [address] May, [facility] [address] [id number] [place] [address] May, [facility] [address] [id number] [place] [address] May, [facility] [address] [id number] [place] [address] May, [facility] [address] [id number] [place] [address] Apr, [facility] [address] [id number] [place] [address] Apr, [facility] [address] [id number] [place] [address] Apr, [facility] [address] [id number] [place] [address] Apr, [facility] [address] [id number] [place] [address] Mar, [facility] [address] [id number] [place] [address] Mar, [facility] [address] [id number] [place] [address] Mar, [facility] [address] [id number] [place] [address] Mar, [facility] [address] [id number] [place] [address] Mar, [facility] [address] [id number] [place] [address] Mar, [facility] [address] [id number] [place] [address] Mar, [facility] [id number] [place] [address] Mar, [facility] [address] [id number] [place] [address] Mar, [facility] [address] [id number] [place] [address] Mar, [facility] [address] [id number] [place] [address] Mar, 2012 [facility] [address] [id number] [place] [address] Mar, [facility] [address] [id number] [place] [address] Feb, [facility] [address] [id number] [place] [address] 18 Jan, 2013 [facility] [address] [facility] [id number] [place] [address] 17 Jan, 2012 [facility] [address] [id number] [place] [address] Jan, [facility] [address] [id number] [place] [address] Jan, [facility] [address] [id number] [place] [address] Jan, [facility] [address] [id number] [place] [address] Dec, [facility] [address] [id number] [place] [address] Dec, [facility] [address] [id number] [place] [address] Dec, [facility] [address] [id number] [place] [address] 16 Dec, 2012 [facility] [address] [id number] [place] [address] Dec, [facility] [address] [id number] [place] [address] Dec, [facility] [address] [id number] [place] [address] Dec, [facility] [address] [id number] [place] [address] Dec, [facility] [address] [id number] [place] [address] Nov, [facility] [address] [id number] [place] [address] Nov, [facility] [address] [id number] [place] [address] Nov, [facility] [address] [id number] [place] [address] Nov, [facility] [address] [id number] [place] [address] Nov, [facility] [address] [id number] [place] [address] Nov, [facility] [address] [id number] [place] [address] Oct, [facility] [address] [id number] [id number] Oct, [facility] [address] [id number] [id number] Oct, [facility] [address] [id number] [id number] Oct, [facility] [address] [id number] [id number] Oct, [facility] [address] [id number] [place] [address] Oct, [facility] [address] [id number] [place] [address] Oct, [facility] [address] [id number] [place] [address] Oct, [facility] [address] [id number] [place] [address] Oct, [facility] [address] [id number] [place] [address] Oct, [facility] [address] [id number] [place] [address] Oct, [facility] [address] [id number] [place] [address] September, [facility] [address] [facility] [id number] [place] [address] Aug, [facility] [address] [id number] [place] [address] Aug, [facility] [address] [id number] [place] [address] Aug, [facility] [address] [id number] [place] [address] Aug, [facility] [address] [facility] [id number] [place] [address] Jul, [facility] [address] [id number] [place] [address] Jul, [facility] [address] [id number] [place] [address] Jul, [facility] [address] [id number] [place] [address] Jul, [facility] [address] [id number] [place] [address] Jul, [facility] [address] [id number] [place] [address] Jun, [facility] [address] [id number] [place] [address] Jun, [facility] [address] [id number] [place] [address] Jun, [facility] [address] [id number] [place] [address] May, [facility] [address] [id number] [place] [address] May, [facility] [address] [id number] [place] [address] May, [facility] [address] [id number] [place] [address] May, [facility] [address] [id number] [place] [address] May, [facility] [address] [id number] [place] [address] May, [facility] [address] [id number] [place] [address] Apr, [facility] [address] [id number] [place] [address] 18 Apr, 2012 [facility] [address] [id number] [place] [address] Apr, [facility] [address] [id number] [place] [address] Apr, [facility] [address] [id number] [place] [address] Apr, [facility] [address] [id number] [place] [address] Apr, [facility] [address] [id number] [place] [address] Apr, [facility] [address] [id number] [place] [address] Mar, [facility] [address] [id number] [place] [address] Mar, [facility] [address] [id number] [place] [address] Mar, [facility] [address] [id number] [place] [address] Mar, [facility] [address] [id number] [place] [address] 18 Jan, 2012 [facility] [id number] [place] [address] 10 Jan, 2012 [facility] [address] [id number] [place] [address] Jan, [facility] [address] [id number] [place] [address] 06 Jan, [address] [facility] [address] [id number] [place] [id number] Dec, [facility] [id number] [place] [address] Dec, [facility] [address] [facility] [address] [id number] [place] [id number] Dec, [facility] [address] [address] Dec, [facility] [address] [address] Dec, [facility] [address] [address] Dec, [facility] [address] [address] Nov, [facility] [address] [address] Nov, [facility] [address] [address] Nov, IMMUNIZATIONS No Known Immunizations SOCIAL HISTORY [...] asthma(493.90) Medical History Near syncope Medical History [facility] current use of anticoagulant Medical History Renal [...] Stent placed 08/19/2017 Hospitalization History Syncope- [facility] 12/2017 Hospitalization History heart cath ( 06/23/18-06/25/2018) Hospitalization History heart problem, overnight stay 9
--- OUTSIDE RECORDS SUMMARY | 2019-11-03 19:27 | XMS REPORT ---
Author Author Anca Villalobos Organization [facility] Address [address] [place] [address] Care Team Providers Care Falafel Cart Cook Name Role Phone CHERYL Villalobos Unavailable PROBLEMS Type Condition ICD9-CM Code UCG18-RV Code Onset Dates Condition S tatus SNOMED Code Problem Esophageal reflux K21.9 Active 24 1018472 Problem Dyslipidemia E78.5 12 Oct, 2017 Active 3709 90853 Problem Unspecified hypothyroidism E03.9 Act hernesto 98037264 Problem Generalized anxiety disorder F41.1 Apr, 200 8 Active 52779597 Problem Shortness of breath R06.02 23 Apr, 2008 Active 086353337 Problem Pulmonary embolus I26.99 13 Oct, 2011 Active 15697022 Problem Nonintractable migraine G43.009 08 Oct, 2015 Act hernesto 631807999 Problem Pre-diabetes R73.03 Active 3176113 02 Problem Morbid obesity with BMI of 50.0-59.9, adult Z68.43 Active 411171745 Problem Hypothyroidism E03.9 Active 01520 008 Problem Morbid obesity E66.01 Active 00062 6002 Problem Unspecified sleep apnea G47.30 Active 90733325 Problem Personal history of pulmonary embolism Z86.711 Active 143792298 Problem Osteoarthritis of right knee M17.11 13 May, 201 0 Active 078864365 Problem Renal stones N20.0 Active 7685971 7 Problem Coronary artery disease I25.10 Active 93376576 Problem Hyperlipidemia LDL goal <70 E78.5 Ac tive 99768418 Problem Migraine with aura and without status migrainosu s, not intractable G43.109 Active 5513308 ALLERGIES No Information ENCOUNTERS Encounter Location Date Diagnosis [facility] [address] [id number] [place] [address] 07 Jun, 2019 Personal history of pulmonary embolism Z 86.711 [facility] [id number] [place] [address] 07 Jun, 2019 Personal history of pulmonary embolism Z 86.711 [place] [address] [address] May, [facility] [facility] [address] [place] [address] 17 May, 2019 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 and Dizziness R42 [facility] [address] [facility] [id number] [address] [place] [address] Apr, Non-recurrent acute suppurat hernesto otitis media of both ears without spontaneous rupture of tympanic membranes H66.003 [place] [address] [address] 08 Feb, 2019 Pre-diabetes R73.03 and Hyperlipidemia L DL goal <[address] [address] Feb, [place] [address] [address] Feb, [address] [address] Jan, [place] [address] [address] Jan, [address] [address] 18 Jan, 2019 Encounter for Medicare annual wellness e xam Z00.00 ; Hyperlipidemia LDL goal <70 E78.5 ; Coronary artery disease I25.10 ; Hypothyroidism E03.9 ; Osteoarthritis of right knee M17.11 ; Morbid obesity with BMI of 50.0-59.9, adult Z68.43 and Esophageal reflux K21.[address] [address] 13 Jan, 2019 Dysuria R30.0 and Hematuria, unspecified type R31.[address] [address] Jan, Hematuria, unspecified type R31.9 [facility] [address] [address] Dec, Hematuria, unspecified type R31.9 [facility] [id number] [place] [address] Nov, Hematuria, unspecified type R31.[address] [place] [address] Nov, Other microscopic hematuria R31.29 [facility] [address] [address] Nov, Vaginal gena B37.3 ; Other microscopi c hematuria R31.29 and Morbid obesity E66.01 [place] [address] [address] Nov, [place] [address] [address] Nov, [facility] [address] [place] [id number] [place] [address] Nov, UTI symptoms R39.9 and Morbi d obesity E66.01 [place] [address] [address] Nov, [place] [address] [address] September, [place] [address] [address] September, [place] [address] [address] Aug, Right foot pain M79.671 and Morbid obesi ty E66.01 [facility] [address] [address] Jul, Right foot pain M79.671 and Morbid obesi ty E66.01 [facility] [address] [place] [id number] [place] [address] 12 Jul, 2018 Injury of right foot, initia l encounter S99.921A and Morbid obesity E66.01 [place] [address] [address] 05 Jul, 2018 Recurrent syncope R55 and Morbid obesity E66.01 [place] [address] [address] Jul, [place] [address] [address] Jun, Hematuria, unspecified type R31.9 and BM I 50.0-59.9, adult Z68.43 [place] [address] [address] 07 Jun, 2018 [place] [address] [address] [place] [address] 04 Jun, 2018 [facility]DC current use of ant icoagulant Z79.01 [facility] [address] [place] [address] May, Ankle pain, right M25.571 an d BMI 50.0-59.9, adult Z68.43 [place] [address] [address] May, [place] [address] [address] May, [place] [address] [address] Apr, [place] [address] [address] Apr, [place] [address] [address] Apr, [facility] [address] [place] [id number] [place] [address] Apr, BMI 50.0-59.9, adult Z68.43 and Weakness R53.1 [place] [address] [address] Apr, [facility] [place] [address] [address] Apr, Dysuria R30.0 ; Hematuria R3 1.9 ; Renal lithiasis N20.0 and BMI 50.0-59.9, adult Z68.43 [place] [address] [address] Apr, [place] [address] [address] Apr, [place] [address] [address] Apr, Hypothyroidism E03.9 [place] [address] [address] Apr, Burning with urination R30.0 ; 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, 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 ; Acute bilateral low back pain without sciatica M54.5 and BMI 50.0-59.9, adult Z68.43 [place] [address] [address] Mar, Hypothyroidism E03.9 [place] [address] [address] Feb, [facility] [place] [address] [address] Jan, [place] [address] [address] 07 Jan, 2018 Acute non-recurrent maxillary sinusitis J01.00 and BMI 50.0-59.9, adult Z68.43 [facility] [place] [address] [address] 04 Jan, 2018 Congestion of upper respirat ory tract J98.8 and BMI 50.0-59.9, adult Z68.43 [place] [address] [address] Dec, Type 2 diabetes mellitus with diabetic n europathic arthropathy, 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 ; Morbid obesity with BMI of 50.0-59.9, adult Z68.43 ; Hypothyroidism E03.9 ; Coronary artery disease I25.10 ; Hyperlipidemia LDL goal <70 E78.5 ; Right lower quadrant abdominal pain R10.31 and Acute cystitis with hematuria N30.01 [facility] IN [facility] [address] [facility] [id number] [address] [place] [address] Dec, Migraine with aura and witho ut status migrainosus, not intractable G43.109 ; Dehydration symptoms R63.8 and BMI 50.0-59.9, adult Z68.43 [facility] [address] [address] Oct, [place] [address] [address] Oct, [place] [address] [address] Oct, [place] [address] [address] September, [place] [address] [address] September, Type 2 diabetes mellitus with diabetic n europathic arthropathy, 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 ; Hyperlipidemia, unspecified hyperlipidemia type E78.5 ; Personal history of pulmonary embolism Z86.711 ; Coronary artery disease I25.10 and Hypothyroidism E03.9 [facility] [address] [address] September, [place] [address] [address] Aug, Type 2 diabetes mellitus with diabetic [...] without aura and with status migrainosus G43.011 [facility] [address] [address] Aug, [place] [address] [address] Aug, [place] [address] [address] Jul, Renal stones N20.0 [facility] [address] [facility] [id number] [place] [address] 19 Jun, 2017 Back pain M54.9 ; Kidney sto radha N20.0 and BMI 50.0-59.9, adult Z68.43 [place] [address] [address] Jun, [place] [address] [address] Apr, [place] [address] [address] Apr, [place] [address] [address] Apr, Right foot pain M79.671 ; Acute gout inv olving toe of right foot, 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 and Arthritis M19.90 [place] [address] [address] 06 Apr, 2017 Gastroesophageal reflux disease without esophagitis K21.9 [place] [address] [address] 16 Mar, 2017 Hypothyroidism, unspecified E03.9 [place] [address] [address] 11 Feb, 2017 [place] [address] [address] 25 Jan, 2017 Cervicalgia of krmfqbci-qtdjunf-iysft re gion M54.2 and Persistent headaches R51 [place] [address] [address] 20 Jan, 2017 [place] [address] [address] 12 Jan, 2017 Intractable migraine without aura and wi th status migrainosus G43.011 ; Cervical spine pain M54.2 ; Hyperlipidemia, unspecified hyperlipidemia type E78.5 ; Hypothyroidism E03.9 and Metabolic syndrome E88.81 [place] [address] [address] Jan, Hypothyroidism, unspecified E03.9 [place] [address] [address] Dec, Hypothyroidism, unspecified E03.9 [place] [address] [address] Dec, Hypothyroidism E03.[address] [address] Nov, Laceration of left great toe w/o foreign body w/o damage to nail, initial encounter S91.112A [facility] [address] [facility] [id number] [address] [place] [address] Oct, Pain in left knee M25.562 an d Arthritis M19.[address] [address] Oct, Hypothyroidism, unspecified E03.9 and Hy perlipidemia, unspecified hyperlipidemia type E78.[address] [address] Oct, Gastroesophageal reflux disease without esophagitis K21.[address] [address] 14 Oct, 2016 Metabolic syndrome E88.81 ; Personal his tory of pulmonary embolism Z86.711 ; Other specified hypothyroidism E03.8 and Hyperlipidemia, unspecified hyperlipidemia type E78.5 [place] [address] [address] 13 Oct, 2017 Personal history of pulmonary embolism Z 86.711 ; Dysuria R30.0 ; Metabolic syndrome E88.81 ; Other specified hypothyroidism E03.8 ; Hyperlipidemia, unspecified hyperlipidemia type E78.5 and Morbid obesity with BMI of 50.0-59.9, adult Z68.43 [place] [address] [address] September, [facility] [address] [address] September, Wrist pain, left M25.532 and Acute pain of left knee M25.[address] [address] Jul, Dysuria R30.0 [place] [address] [address] Jul, Dysuria R30.[address] [address] Jul, Left lower quadrant pain R10.32 [place] [address] [address] Jul, [address] [address] Jul, Coronary artery disease I25.10 ; Family history of diabetes mellitus Z83.3 ; Morbid obesity with BMI of 50.0-59.9, adult Z68.43 ; Metabolic syndrome E88.81 ; Personal history of pulmonary embolism Z86.711 ; Gastroesophageal reflux disease without esophagitis K21.9 ; Hypothyroidism, unspecified E03.9 ; Hyperlipidemia, unspecified hyperlipidemia type E78.5 and Left lower quadrant pain R10.32 [facility] [address] [address] Jul, [facility] [address] [address] 08 Jul, 2016 Morbid obesity with BMI of 5 0.0-59.9, adult Z68.43 [facility] [address] [address] 07 Jul, 2016 Generalized abdominal pain R 10.84 [facility] [address] [address] 02 Jun, 2016 Muscle strain of right upper back, initial encounter S29.012A [facility] [address] [address] May, Foreign body (FB) in soft ti ssue M79.[address] [address] Mar, Hypothyroidism, unspecified E03.9 and Ar thritis M19.[address] [address] Feb, Coronary artery disease I25.10 ; Morbid obesity with BMI of 50.0-59.9, adult Z68.43 ; Metabolic syndrome E88.81 ; Gastroesophageal reflux disease without esophagitis K21.9 ; Hypothyroidism, unspecified E03.9 ; Personal history of pulmonary embolism Z86.711 and Hyperlipidemia, unspecified hyperlipidemia type E78.[address] [address] Feb, [facility] [address] [address] Jan, Acute right-sided thoracic b ack pain M54.[address] [address] Jan, Acute pain of left knee M25.[address] [address] Dec, Dysuria R30.0 ; Metabolic syndrome E88.8 1 ; Acute pain of left knee M25.562 ; Acute cystitis with hematuria N30.01 and Acute left eye pain H57.12 [place] [address] [address] Dec, [place] [address] [address] Dec, [place] [address] [address] Dec, Hypothyroidism, unspecified E03.9 [place] [address] [address] Dec, [address] [address] Nov, Peripheral edema R60.9 and Acute pain of left knee M25.562 [facility] IN [address] [address] September, [address] [address] September, Metabolic syndrome E88.81 and Allergy, s ubsequent encounter T78.40XD [facility] IN [address] [address] September, Muscle strain T14.[address] [address] Aug, Chest pressure R07.89 ; Metabolic syndro me E88.81 ; Morbid obesity with BMI of 50.0-59.9, adult Z68.43 ; Esophageal reflux 530.81 and Shortness of breath R06.[address] [address] Aug, [address] [address] Aug, [address] [address] 11 Apr, 2016 Hypothyroidism, unspecified E03.9 [facility] [address] [address] Aug, Routine health maintenance Z00.00 [facility] [place] [address] [place] [id number] [place] [address] Aug, [place] [address] [address] 31 Jul, 2015 Routine health maintenance Z00.00 ; Fami ly history of diabetes mellitus Z83.3 ; Family history of cancer Z80.9 and Morbid obesity with BMI of 50.0-59.9, adult Z68.43 [facility] IN [address] [address] 28 Jul, 2015 Allergic rhinitis J30.9 and Postnasal drip R09.[address] [address] Jul, Influenza J11.1 [facility] [place] [id number] [place] [address] Jul, Dysuria R30.[address] [address] Apr, [address] [address] Mar, Acute upper respiratory infection, unspe cified J06.9 and Hypothyroidism E03.[address] [address] Mar, [address] [address] Feb, Coronary artery disease I25.[address] [address] Feb, Left foot pain M79.[address] [address] Jan, UTI (urinary tract infection) 599.0 [place] [id number] [address] Jan, Urinary tract infection, site not specif ied 599.0 [facility] [address] [address] Jan, Urinary tract infection, site not specif ied 599.0 [facility] [address] [address] Jan, [facility] [address] [address] Dec, Headache 784.0 [place] [address] [address] Dec, Urinary tract infection, site not specif ied 599.0 [place] [address] [address] Dec, Urinary tract infection, site not specif ied 599.0 [place] [address] [address] Dec, Urinary tract infection, site not specif ied 599.0 [place] [address] [address] Nov, Unspecified sleep apnea 780.57 ; Encount er for long-term (current) use of anticoagulants V58.61 ; Routine general medical examination at health care facility V70.0 and Arthritis of both knees 716.96 [place] [address] [address] September, Cat bite of hand 882.0 and Rectal bleedi ng 569.3 [place] [address] [address] Aug, [place] [address] [address] Aug, [place] [address] [address] Jul, [place] [address] [id number] [place] [address] Jul, [facility] [address] [facility] [id number] [place] [address] Jul, [facility] [address] [id number] [place] [address] Jul, [facility] [address] [id number] [place] [address] Jul, [facility] [address] [id number] [place] [address] Jul, [facility] [address] [id number] [place] [address] Jul, [facility] [address] [id number] [place] [address] Jul, [facility] [address] [id number] [place] [address] May, [facility] [address] [id number] [place] [address] May, [facility] [address] [id number] [place] [address] May, [facility] [address] [id number] [place] [address] May, [facility] [address] [id number] [place] [address] May, [facility] [address] [id number] [place] [address] May, [facility] [address] [id number] [place] [address] May, [facility] [address] [id number] [place] [address] Mar, [facility] [address] [id number] [place] [address] Mar, [facility] [address] [id number] [place] [address] Jan, [facility] [address] [id number] [place] [address] 08 Jan, 2013 [facility] [address] [facility] [id number] [place] [address] Jan, 2013 [facility] [address] [facility] [id number] [place] [address] Jan, 2013 [facility] [address] [id number] [place] [address] Jan, 2013 [facility] [address] [facility] [id number] [place] [address] Jan, 2013 [facility] [address] [id number] [place] [address] Dec, [facility] [address] [id number] [place] [address] Dec, [facility] [address] [id number] [place] [address] Dec, [facility] [address] [id number] [place] [address] Dec, [facility] [address] [id number] [place] [address] Dec, [facility] [address] [id number] [place] [address] Dec, [facility] [address] [id number] [place] [address] Dec, [facility] [address] [id number] [place] [address] Dec, [facility] [address] [facility] [id number] [place] [address] Dec, [facility] [address] [id number] [place] [address] Dec, [facility] [address] [id number] [place] [address] Nov, [facility] [address] [id number] [place] [address] Nov, [facility] [address] [id number] [facility] [address] September, [facility] [address] [id number] [facility] [address] September, [facility] [address] [id number] [facility] [address] September, [facility] [address] [id number] [facility] [address] September, [facility] [address] [id number] [facility] [address] Aug, [facility] [address] [id number] [place] [address] Aug, [facility] [address] [id number] [place] [address] Aug, [facility] [address] [id number] [place] [address] Aug, [facility] [address] [id number] [place] [address] Aug, [facility] [address] [id number] [place] [address] Aug, [facility] [address] [id number] [place] [address] Aug, [facility] [address] [id number] [place] [address] Aug, [facility] [address] [id number] [place] [address] Aug, [facility] [address] [id number] [place] [address] Aug, [facility] [address] [id number] [place] [address] Aug, [facility] [address] [id number] [place] [address] Aug, [facility] [address] [id number] [place] [address] Jul, [facility] [address] [facility] [id number] [place] [address] Jul, [facility] [address] [id number] [place] [address] Jul, [facility] [address] [id number] [place] [address] Jul, [facility] [address] [id number] [place] [address] Jul, [facility] [address] [id number] [place] [address] Jul, [facility] [address] [id number] [place] [address] Jul, [facility] [address] [id number] [place] [address] Jul, [facility] [address] [id number] [place] [address] Jul, [facility] [address] [id number] [place] [address] Jul, [facility] [address] [id number] [place] [address] Jun, [facility] [address] [id number] [place] [address] Jun, [facility] [address] [id number] [place] [address] Jun, [facility] [address] [facility] [id number] [place] [address] Jun, [facility] [address] [id number] [place] [address] Jun, [facility] [address] [id number] [place] [address] Jun, [facility] [address] [id number] [place] [address] Jun, [facility] [address] [facility] [id number] [place] [address] Jun, [facility] [address] [id number] [place] [address] Jun, [facility] [address] [id number] [place] [address] Jun, [facility] [address] [id number] [place] [address] Jun, [facility] [address] [id number] [place] [address] Jun, [facility] [address] [id number] [place] [address] May, [facility] [address] [id number] [place] [address] May, [facility] [address] [id number] [place] [address] May, [facility] [address] [id number] [place] [address] May, [facility] [address] [id number] [place] [address] May, [facility] [address] [id number] [place] [address] May, [facility] [address] [id number] [place] [address] May, [facility] [address] [id number] [place] [address] May, [facility] [address] [id number] [place] [address] May, [facility] [address] [id number] [place] [address] May, [facility] [address] [id number] [place] [address] May, [facility] [address] [id number] [place] [address] 08 May, 2013 [facility] [address] [id number] [place] [address] May, [facility] [address] [id number] [place] [address] May, [facility] [address] [id number] [place] [address] May, [facility] [address] [id number] [place] [address] Apr, [facility] [address] [id number] [place] [address] Apr, [facility] [address] [id number] [place] [address] Apr, [facility] [address] [id number] [place] [address] Apr, [facility] [address] [id number] [place] [address] Mar, [facility] [address] [id number] [place] [address] Mar, [facility] [address] [id number] [place] [address] Mar, [facility] [address] [id number] [place] [address] Mar, [facility] [address] [id number] [place] [address] Mar, [facility] [address] [id number] [place] [address] Mar, [facility] [id number] [place] [address] Mar, [facility] [address] [id number] [place] [address] Mar, [facility] [address] [id number] [place] [address] Mar, [facility] [address] [id number] [place] [address] Mar, [facility] [address] [id number] [place] [address] Mar, [facility] [address] [id number] [place] [address] Mar, [facility] [address] [id number] [place] [address] Feb, [facility] [address] [id number] [place] [address] 18 Jan, 2013 [facility] [address] [id number] [place] [address] 17 Jan, 2013 [facility] [address] [id number] [place] [address] 06 Jan, 2012 [facility] [address] [id number] [place] [address] 04 Jan, 2013 [facility] [address] [id number] [place] [address] Jan, [facility] [address] [id number] [place] [address] Dec, [facility] [address] [id number] [place] [address] Dec, [facility] [address] [id number] [place] [address] Dec, [facility] [address] [id number] [place] [address] 16 Dec, 2012 [facility] [address] [id number] [place] [address] Dec, [facility] [address] [id number] [place] [address] Dec, [facility] [address] [id number] [place] [address] Dec, [facility] [address] [id number] [place] [address] Dec, [facility] [address] [id number] [place] [address] Nov, [facility] [address] [id number] [place] [address] Nov, [facility] [address] [id number] [place] [address] Nov, [facility] [address] [id number] [place] [address] Nov, [facility] [address] [id number] [place] [address] Nov, [facility] [address] [id number] [place] [address] Nov, [facility] [address] [id number] [place] [address] Oct, [facility] [id number] Oct[id number] [id number] Oct, [id number] [id number] Oct, [facility] [id number] Oct, [facility] [address] [id number] [place] [address] Oct, [facility] [address] [id number] [place] [address] Oct, [facility] [address] [id number] [place] [address] Oct, [facility] [address] [id number] [place] [address] Oct, [facility] [address] [id number] [place] [address] 10 Oct, 2012 [facility] [address] [id number] [place] [address] Oct, [facility] [address] [id number] [place] [address] September, [facility] [address] [facility] [id number] [facility] [address] Aug, [facility] [address] [id number] [place] [address] Aug, [facility] [address] [id number] [place] [address] Aug, [facility] [address] [facility] [id number] [facility] [address] Aug, [facility] [address] [id number] [place] [address] 24 Jul, 2012 [facility] [address] [id number] [place] [address] Jul, [facility] [address] [id number] [place] [address] Jul, [facility] [address] [id number] [place] [address] Jul, [facility] [address] [id number] [place] [address] Jul, [facility] [address] [id number] [place] [address] Jun, [facility] [address] [id number] [place] [address] Jun, [facility] [address] [id number] [place] [address] Jun, [facility] [address] [id number] [place] [address] May, [facility] [address] [id number] [place] [address] 24 May, 2012 [facility] [address] [id number] [place] [address] 14 May, 2012 [facility] [address] [id number] [place] [address] 11 May, 2012 [facility] [address] [id number] [place] [address] May, [facility] [address] [id number] [place] [address] 04 May, 2012 [facility] [address] [id number] [place] [address] 18 Apr, 2012 [facility] [address] [id number] [place] [address] 18 Apr, 2012 [facility] [address] [id number] [place] [address] 13 Apr, 2012 [facility] [address] [id number] [place] [address] 13 Apr, 2012 [facility] [address] [id number] [place] [address] 13 Apr, 2012 [facility] [address] [id number] [place] [address] Apr, [facility] [address] [id number] [place] [address] Apr, [facility] [address] [id number] [place] [address] Mar, [facility] [address] [id number] [place] [address] Mar, [facility] [address] [id number] [place] [address] Mar, [facility] [address] [id number] [place] [address] Mar, [facility] [address] [id number] [place] [address] 18 Jan, 2012 [facility] [address] [id number] [place] [address] 10 Jan, 2012 [facility] [address] [id number] [place] [address] Jan, [facility] [id number] [place] [address] Jan, [facility] [id number] [place] [id number] Dec, [facility] [address] [address] Dec, [facility] [address] [id number] [place] [id number] Dec, [facility] [address] [address] Dec, [facility] [address] [address] Dec, [facility] [address] [address] Dec, [facility] [address] [address] Nov, [facility] [address] [address] Nov, [facility] [address] [address] Nov, IMMUNIZATIONS No Known Immunizations SOCIAL HISTORY [...] asthma(493.90) Medical History Near syncope 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
--- OUTSIDE RECORDS SUMMARY | 2019-11-03 19:28 | XMS REPORT ---
Author Author Anca Lucero Doctor Organization [facility] Address Unknown Phone Unavailable Care Team Providers Care Flight Deck Officer Name Role Phone Migration, Doctor Unavailable Unavailable PROBLEMS Type Condition ICD9-CM Code [id number] Code Onset Dates Condition S tatus SNOMED Code Problem Esophageal reflux K21.9 Active 24 6998526 Problem Dyslipidemia E78.5 12 Oct, 2017 Active 3709 68531 Problem Unspecified hypothyroidism E03.9 Act hernesto 83388834 Problem Generalized anxiety disorder F41.1 Apr, 200 8 Active 75665024 Problem Shortness of breath R06.02 Apr, Active 384461129 Problem Pulmonary embolus I26.99 13 Oct, 2011 Active 38995399 Problem Nonintractable migraine G43.009 08 Oct, 2015 Act hernesto 256609435 Problem Pre-diabetes R73.03 Active 4869756 02 Problem Morbid obesity with BMI of 50.0-59.9, adult Z68.43 Active 701102980 Problem Hypothyroidism E03.9 Active 33998 008 Problem Morbid obesity E66.01 Active 42198 6002 Problem Unspecified sleep apnea G47.30 Active 54037799 Problem Personal history of pulmonary embolism Z86.711 Active 757770392 Problem Osteoarthritis of right knee M17.11 13 May, 201 0 Active 448347511 Problem Renal stones N20.0 Active 5678165 7 Problem Coronary artery disease I25.10 Active 02840259 Problem Hyperlipidemia LDL goal <70 E78.5 Ac tive 85468735 Problem Migraine with aura and without status migrainosu s, not intractable G43.109 Active 1241388 ALLERGIES No Information ENCOUNTERS Encounter Location Date Diagnosis [facility] [address] [id number] [place] [address] 07 Jun, 2019 Personal history of pulmonary embolism Z 86.711 [facility] [address] [id number] [place] [address] 07 Jun, 2019 Personal history of pulmonary embolism Z 86.711 [place] [address] [facility] [place] [address] May, [facility] [place] [facility] [address] [place] [address] May, 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 [address] [facility] [id number] [address] [place] [address] Apr, Non-recurrent acute suppurat hernesto otitis media of both ears without spontaneous rupture of tympanic membranes H66.003 [place] [address] [address] 08 Feb, 2019 Pre-diabetes R73.03 and Hyperlipidemia L DL goal <70 E78.5 [place] [address] [place] [id number] [place] [address] Feb, [place] [address] [address] Feb, [place] [address] [place] [id number] [place] [address] Jan, [place] [address] [address] Jan, [place] [address] [address] 18 Jan, 2019 Encounter for Medicare annual wellness e xam Z00.00 ; Hyperlipidemia LDL goal <70 E78.5 ; Coronary artery disease I25.10 ; Hypothyroidism E03.9 ; Osteoarthritis of right knee M17.11 ; Morbid obesity with BMI of 50.0-59.9, adult Z68.43 and Esophageal reflux K21.9 [place] [address] [address] Jan, Dysuria R30.0 and Hematuria, unspecified type R31.9 [place] [address] [place] [id number] [place] [address] Jan, Hematuria, unspecified type R31.9 [place] [address] [place] [address] [place] [address] Dec, Hematuria, unspecified type R31.9 [facility] [address] [address] Nov, Hematuria, unspecified type R31.[address] [place] [address] Nov, Other microscopic hematuria R31.29 [place] [address] [address] Nov, Vaginal gena B37.3 ; Other microscopi c hematuria R31.29 and Morbid obesity E66.01 [place] [address] [address] Nov, [place] [address] [address] Nov, [facility] N [place] [id number] [address] [place] [address] Nov, UTI symptoms R39.9 and Morbi d obesity E66.01 [place] [address] [address] Nov, [place] [address] [address] September, [place] [address] [address] September, [place] [address] [address] Aug, Right foot pain M79.671 and Morbid obesi ty E66.01 [place] [address] [address] Jul, Right foot pain M79.671 and Morbid obesi ty E66.01 [facility] [address] [facility] [id number] [address] [place] [address] Jul, Injury of right foot, initia l encounter S99.921A and Morbid obesity E66.01 [place] [address] [place] [id number] [place] [address] Jul, Recurrent syncope R55 and Morbid obesity E66.01 [place] [address] [place] [address] [place] [address] Jul, [place] [address] [address] Jun, Hematuria, unspecified type R31.9 and BM I 50.0-59.9, adult Z68.43 [place] [address] [place] [id number] [place] [address] 07 Jun, 2018 [place] [address] [place] [address] 04 Jun, 2018 senior care current use of ant icoagulant Z79.01 [facility] N [facility] [id number] [address] [place] [address] May, Ankle pain, right M25.571 an d BMI 50.0-59.9, adult Z68.43 [place] [address] [address] May, [place] [address] [address] May, [place] [address] [address] Apr, [place] [address] [address] Apr, [place] [address] [address] Apr, [facility] [address] [facility] [id number] [address] [place] [address] Apr, BMI 50.0-59.9, adult Z68.43 and Weakness R53.1 [place] [address] [address] Apr, [facility] [place] [address] [address] Apr, Dysuria R30.0 ; Hematuria R3 1.9 ; Renal lithiasis N20.0 and BMI 50.0-59.9, adult Z68.43 [place] [address] [address] Apr, [place] [address] [address] Apr, [place] [address] [address] Apr, Hypothyroidism E03.9 [place] [address] [address] Apr, Burning with urination R30.0 ; 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, 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 ; Acute bilateral low back pain without sciatica M54.5 and BMI 50.0-59.9, adult Z68.43 [place] [address] [address] Mar, Hypothyroidism E03.9 [place] [address] [address] Feb, [facility] [place] [address] [address] 15 Jan, 2018 [place] [address] [address] 07 Jan, 2018 Acute non-recurrent maxillary sinusitis J01.00 and BMI 50.0-59.9, adult Z68.43 [facility] [address] [address] 04 Jan, 2018 Congestion of upper respirat ory tract J98.8 and BMI 50.0-59.9, adult Z68.43 [place] [address] [address] Dec, Type 2 diabetes mellitus with diabetic n europathic arthropathy, 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 ; Morbid obesity with BMI of 50.0-59.9, adult Z68.43 ; Hypothyroidism E03.9 ; Coronary artery disease I25.10 ; Hyperlipidemia LDL goal <70 E78.5 ; Right lower quadrant abdominal pain R10.31 and Acute cystitis with hematuria N30.01 [facility] [address] [facility] [id number] [address] [place] [address] Dec, Migraine with aura and witho ut status migrainosus, not intractable G43.109 ; Dehydration symptoms R63.8 and BMI 50.0-59.9, adult Z68.43 [place] [address] [address] Oct, [place] [address] [address] Oct, [place] [address] [address] Oct, [facility] [address] [address] September, [place] [address] [address] September, Type 2 diabetes mellitus with diabetic n europathic arthropathy, 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 ; Hyperlipidemia, unspecified hyperlipidemia type E78.5 ; Personal history of pulmonary embolism Z86.711 ; Coronary artery disease I25.10 and Hypothyroidism E03.9 [facility] [address] [address] September, [place] [address] [address] Aug, Type 2 diabetes mellitus with diabetic [...] without aura and with status migrainosus G43.011 [place] [address] [address] Aug, [place] [address] [address] Aug, [place] [address] [address] Jul, Renal stones N20.0 [facility] [address] [facility] [id number] [address] [place] [address] Jun, Back pain M54.9 ; Kidney sto radha N20.0 and BMI 50.0-59.9, adult Z68.43 [place] [address] [address] Jun, [place] [address] [address] Apr, [place] [address] [address] Apr, [place] [address] [address] Apr, Right foot pain M79.671 ; Acute gout inv olving toe of right foot, 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 and Arthritis M19.90 [place] [address] [address] 06 Apr, 2017 Gastroesophageal reflux disease without esophagitis K21.9 [place] [address] [address] 16 Mar, 2017 Hypothyroidism, unspecified E03.9 [place] [address] [address] 11 Feb, 2017 [place] [address] [address] 25 Jan, 2017 Cervicalgia of yijsvfop-rcjwpvv-cbqxk re gion M54.2 and Persistent headaches R51 [place] [address] [address] 20 Jan, 2017 [place] [address] [address] 12 Jan, 2017 Intractable migraine without aura and wi th status migrainosus G43.011 ; Cervical spine pain M54.2 ; Hyperlipidemia, unspecified hyperlipidemia type E78.5 ; Hypothyroidism E03.9 and Metabolic syndrome E88.81 [place] [address] [address] Jan, Hypothyroidism, unspecified E03.9 [place] [address] [address] Dec, Hypothyroidism, unspecified E03.9 [place] [address] [address] Dec, Hypothyroidism E03.9 [place] [address] [address] Nov, Laceration of left great toe w/o foreign body w/o damage to nail, initial encounter S91.112A [facility] [address] [facility] [id number] [address] [place] [address] Oct, Pain in left knee M25.562 an d Arthritis M19.90 [place] [address] [address] Oct, Hypothyroidism, unspecified E03.9 and Hy perlipidemia, unspecified hyperlipidemia type E78.5 [place] [address] [address] Oct, Gastroesophageal reflux disease without esophagitis K21.9 [place] [address] [address] 14 Oct, 2016 Metabolic syndrome E88.81 ; Personal his tory of pulmonary embolism Z86.711 ; Other specified hypothyroidism E03.8 and Hyperlipidemia, unspecified hyperlipidemia type E78.[address] [address] 13 Oct, 2017 Personal history of pulmonary embolism Z 86.711 ; Dysuria R30.0 ; Metabolic syndrome E88.81 ; Other specified hypothyroidism E03.8 ; Hyperlipidemia, unspecified hyperlipidemia type E78.5 and Morbid obesity with BMI of 50.0-59.9, adult Z68.[address] [address] September, [facility] [address] [address] September, Wrist pain, left M25.532 and Acute pain of left knee M25.[address] [address] Jul, Dysuria R30.[address] [address] Jul, Dysuria R30.[address] [address] Jul, Left lower quadrant pain R10.[address] [address] Jul, [address] [address] Jul, Coronary artery disease I25.10 ; Family history of diabetes mellitus Z83.3 ; Morbid obesity with BMI of 50.0-59.9, adult Z68.43 ; Metabolic syndrome E88.81 ; Personal history of pulmonary embolism Z86.711 ; Gastroesophageal reflux disease without esophagitis K21.9 ; Hypothyroidism, unspecified E03.9 ; Hyperlipidemia, unspecified hyperlipidemia type E78.5 and Left lower quadrant pain R10.32 [facility] [place] [id number] [place] [address] Jul, [facility] [address] [address] Jul, Morbid obesity with BMI of 5 0.0-59.9, adult Z68.43 [facility] [address] [address] Jul, Generalized abdominal pain R 10.84 [facility] [address] [address] 02 Jun, 2016 Muscle strain of right upper back, initial encounter S29.012A [facility] [address] [address] May, Foreign body (FB) in soft ti ssue M79.[address] [address] Mar, Hypothyroidism, unspecified E03.9 and Ar thritis M19.[address] [address] Feb, Coronary artery disease I25.10 ; Morbid obesity with BMI of 50.0-59.9, adult Z68.43 ; Metabolic syndrome E88.81 ; Gastroesophageal reflux disease without esophagitis K21.9 ; Hypothyroidism, unspecified E03.9 ; Personal history of pulmonary embolism Z86.711 and Hyperlipidemia, unspecified hyperlipidemia type E78.[address] [address] Feb, [facility] [address] [address] Jan, Acute right-sided thoracic b ack pain M54.[address] [address] Jan, Acute pain of left knee M25.[address] [address] Dec, Dysuria R30.0 ; Metabolic syndrome E88.8 1 ; Acute pain of left knee M25.562 ; Acute cystitis with hematuria N30.01 and Acute left eye pain H57.[address] [address] Dec, [place] [address] [address] Dec, [place] [address] [address] Dec, Hypothyroidism, unspecified E03.9 [place] [address] [address] Dec, [place] [address] [address] Nov, Peripheral edema R60.9 and Acute pain of left knee M25.562 [facility] [place] [address] [place] [id number] [place] [address] September, [place] [address] [address] September, Metabolic syndrome E88.81 and Allergy, s ubsequent encounter T78.40XD [facility] [place] [address] [facility] [id number] [address] [place] [address] September, Muscle strain T14.8 [place] [address] [address] Aug, Chest pressure R07.89 ; Metabolic syndro me E88.81 ; Morbid obesity with BMI of 50.0-59.9, adult Z68.43 ; Esophageal reflux 530.81 and Shortness of breath R06.02 [place] [address] [address] Aug, [place] [address] [address] Aug, [place] [address] [address] Aug, Hypothyroidism, unspecified E03.9 [place] [address] [address] Aug, Routine health maintenance Z00.00 [facility] [place] [address] [facility] [id number] [address] [place] [address] Aug, [place] [address] [address] 31 Jul, 2015 Routine health maintenance Z00.00 ; Fami ly history of diabetes mellitus Z83.3 ; Family history of cancer Z80.9 and Morbid obesity with BMI of 50.0-59.9, adult Z68.43 [facility] [place] [address] [place] [id number] [place] [address] 28 Jul, 2015 Allergic rhinitis J30.9 and Postnasal drip R09.[address] [address] 18 Jul, 2015 Influenza J11.1 [facility] [address] [address] Jul, Dysuria R30.0 [place] [address] [address] Apr, [address] [address] Mar, Acute upper respiratory infection, unspe cified J06.9 and Hypothyroidism E03.[address] [address] Mar, [place] [address] [address] Feb, Coronary artery disease I25.10 [place] [address] [address] Feb, Left foot pain M79.[address] [address] Jan, UTI (urinary tract infection) 599.[address] [address] Jan, Urinary tract infection, site not specif ied 599.0 [facility] [address] [place] [id number] [place] [address] Jan, Urinary tract infection, site not specif ied 599.0 [facility] [address] [address] Jan, [facility] [address] [address] Dec, Headache 784.0 [facility] [address] [address] Dec, Urinary tract infection, site not specif ied 599.0 [place] [address] [address] Dec, Urinary tract infection, site not specif ied 599.0 [place] [address] [address] Dec, Urinary tract infection, site not specif ied 599.0 [place] [address] [address] Nov, Unspecified sleep apnea 780.57 ; Encount er for long-term (current) use of anticoagulants V58.61 ; Routine general medical examination at health care facility V70.0 and Arthritis of both knees 716.96 [place] [address] [address] September, Cat bite of hand 882.0 and Rectal bleedi ng 569.3 [facility] [address] [place] [id number] [place] [address] Aug, [facility] [address] [address] Aug, [facility] [address] [address] Jul, [facility] [address] [address] Jul, [facility] [address] [place] [address] Jul, [facility] [address] [id number] [place] [address] Jul, [facility] [address] [id number] [place] [address] Jul, [facility] [address] [id number] [place] [address] Jul, [facility] [address] [id number] [place] [address] Jul, [facility] [address] [id number] [place] [address] Jul, [facility] [address] [id number] [place] [address] May, [facility] [address] [id number] [place] [address] May, [facility] [address] [id number] [place] [address] May, [facility] [address] [id number] [place] [address] May, [facility] [address] [id number] [place] [address] May, [facility] [address] [id number] [place] [address] May, [facility] [address] [id number] [place] [address] May, [facility] [address] [id number] [place] [address] Mar, [facility] [address] [id number] [place] [address] Mar, [facility] [address] [id number] [place] [address] Jan, [facility] [address] [id number] [place] [address] Jan, [facility] [address] [id number] [place] [address] 08 Jan, 2013 [facility] [address] [facility] [id number] [place] [address] Jan, 2013 [facility] [address] [facility] [id number] [place] [address] Jan, 2013 [facility] [address] [id number] [place] [address] Jan, 2013 [facility] [address] [facility] [id number] [place] [address] Dec, [facility] [address] [id number] [place] [address] Dec, [facility] [address] [id number] [place] [address] Dec, [facility] [address] [id number] [place] [address] Dec, [facility] [address] [id number] [place] [address] Dec, [facility] [address] [id number] [place] [address] Dec, [facility] [address] [id number] [place] [address] Dec, [facility] [address] [id number] [place] [address] Dec, [facility] [address] [id number] [place] [address] Dec, [facility] [address] [facility] [id number] [place] [address] Dec, [facility] [address] [id number] [place] [address] Nov, [facility] [address] [id number] [place] [address] Nov, [facility] [address] [id number] [place] [address] September, [facility] [address] [facility] [id number] [place] [address] September, [facility] [address] [facility] [id number] [facility] [place] [address] September, [facility] [address] [id number] [place] [address] September, [facility] [address] [id number] [place] [address] Aug, [facility] [address] [facility] [id number] [place] [address] Aug, [facility] [facility] [address] [id number] [place] [address] Aug, [facility] [place] [facility] [address] [id number] [place] [address] Aug, [facility] [place] [facility] [address] [id number] [place] [address] Aug, [facility] [place] [facility] [address] [id number] [place] [address] Aug, [facility] [place] [facility] [address] [id number] [place] [address] Aug, [facility] [place] [facility] [address] [id number] [place] [address] Aug, [facility] [place] [facility] [address] [id number] [place] [address] Aug, [facility] [place] [facility] [address] [facility] [id number] [place] [address] Aug, [facility] [place] [facility] [address] [id number] [place] [address] Aug, [facility] [place] [facility] [address] [id number] [place] [address] Aug, [facility] [place] [facility] [address] [id number] [place] [address] Jul, [facility] [place] [facility] [address] [id number] [place] [address] Jul, [facility] [place] [facility] [address] [facility] [id number] [place] [address] Jul, [facility] [place] [facility] [address] [id number] [place] [address] Jul, [facility] [place] [facility] [address] [id number] [place] [address] Jul, [facility] [place] [facility] [address] [id number] [place] [address] Jul, [facility] [place] [facility] [address] [id number] [place] [address] Jul, [facility] [place] [facility] [address] [id number] [place] [address] Jul, [facility] [place] [facility] [address] [id number] [place] [address] Jul, [facility] [place] [facility] [address] [id number] [place] [address] Jul, [facility] [place] [facility] [address] [id number] [place] [address] Jun, [facility] [place] [facility] [address] [id number] [place] [address] Jun, [facility] [place] [facility] [address] [id number] [place] [address] Jun, [facility] [place] [facility] [address] [id number] [place] [address] Jun, [facility] [place] [facility] [address] [id number] [place] [address] Jun, [facility] [place] [facility] [address] [id number] [place] [address] Jun, [facility] [place] [facility] [address] [id number] [place] [address] Jun, [facility] [place] [facility] [address] [id number] [place] [address] Jun, [facility] [facility] [address] [facility] [id number] [place] [address] Jun, [facility] [address] [facility] [id number] [facility] [place] [address] Jun, [facility] [address] [facility] [id number] [place] [address] Jun, [facility] [address] [facility] [id number] [place] [address] Jun, [facility] [address] [facility] [id number] [place] [address] May, [facility] [address] [id number] [place] [address] May, [facility] [address] [id number] [place] [address] May, [facility] [address] [id number] [place] [address] May, [facility] [address] [id number] [place] [address] May, [facility] [address] [id number] [place] [address] May, [facility] [address] [id number] [place] [address] May, [facility] [address] [id number] [place] [address] May, [facility] [address] [id number] [place] [address] May, [facility] [address] [id number] [place] [address] May, [facility] [address] [id number] [place] [address] May, [facility] [address] [id number] [place] [address] May, [facility] [address] [id number] [place] [address] May, [facility] [address] [id number] [place] [address] May, [facility] [address] [id number] [place] [address] May, [facility] [address] [id number] [place] [address] Apr, [facility] [address] [id number] [place] [address] Apr, [facility] [address] [id number] [place] [address] Apr, [facility] [address] [id number] [place] [address] Apr, [facility] [address] [id number] [place] [address] Mar, [facility] [address] [id number] [place] [address] Mar, [facility] [address] [id number] [place] [address] Mar, [facility] [address] [id number] [place] [address] Mar, [facility] [address] [id number] [place] [address] Mar, [facility] [address] [id number] [place] [address] Mar, [facility] [address] [id number] [place] [address] Mar, [facility] [address] [id number] [place] [address] Mar, [facility] [address] [id number] [place] [address] Mar, [facility] [address] [id number] [place] [address] Mar, [facility] [address] [id number] [place] [address] Mar, 2012 [facility] [address] [id number] [place] [address] Mar, [facility] [address] [id number] [place] [address] Feb, [facility] [address] [id number] [place] [address] 18 Jan, 2013 [facility] [address] [facility] [id number] [place] [address] 17 Jan, 2012 [facility] [address] [id number] [place] [address] Jan, [facility] [address] [id number] [place] [address] Jan, [facility] [address] [id number] [place] [address] Jan, [facility] [address] [id number] [place] [address] Dec, [facility] [address] [id number] [place] [address] Dec, [facility] [address] [id number] [place] [address] Dec, [facility] [address] [id number] [place] [address] 16 Dec, 2012 [facility] [address] [id number] [place] [address] Dec, [facility] [address] [id number] [place] [address] Dec, [facility] [address] [id number] [place] [address] Dec, [facility] [address] [id number] [place] [address] Dec, [facility] [address] [id number] [place] [address] Nov, [facility] [address] [id number] [place] [address] Nov, [facility] [address] [id number] [place] [address] Nov, [facility] [address] [id number] [place] [address] Nov, [facility] [address] [id number] [place] [address] Nov, [facility] [address] [id number] [place] [address] Nov, [facility] [address] [id number] [place] [address] Oct, [facility] [place] [address] [id number] [id number] Oct, [facility] [place] [address] [id number] [id number] Oct, [facility] [place] [address] [id number] [id number] Oct, [facility] [place] [address] [id number] [id number] Oct, [facility] [address] [id number] [place] [address] Oct, [facility] [address] [id number] [place] [address] Oct, [facility] [address] [id number] [place] [address] Oct, [facility] [address] [id number] [place] [address] Oct, [facility] [address] [id number] [place] [address] Oct, [facility] [address] [id number] [place] [address] Oct, [facility] [address] [id number] [place] [address] September, [facility] [address] [facility] [id number] [place] [address] Aug, [facility] [address] [id number] [place] [address] Aug, [facility] [address] [id number] [place] [address] Aug, [facility] [address] [id number] [place] [address] Aug, [facility] [address] [facility] [id number] [place] [address] Jul, [facility] [address] [id number] [place] [address] Jul, [facility] [address] [id number] [place] [address] Jul, [facility] [address] [id number] [place] [address] Jul, [facility] [address] [id number] [place] [address] Jul, [facility] [address] [id number] [place] [address] Jun, [facility] [address] [id number] [place] [address] Jun, [facility] [address] [id number] [place] [address] Jun, [facility] [address] [id number] [place] [address] May, [facility] [address] [id number] [place] [address] May, [facility] [address] [id number] [place] [address] May, [facility] [address] [id number] [place] [address] May, [facility] [address] [id number] [place] [address] May, [facility] [address] [id number] [place] [address] May, [facility] [address] [id number] [place] [address] Apr, [facility] [address] [id number] [place] [address] 18 Apr, 2012 [facility] [address] [id number] [place] [address] Apr, [facility] [address] [id number] [place] [address] Apr, [facility] [address] [id number] [place] [address] Apr, [facility] [address] [id number] [place] [address] Apr, [facility] [address] [id number] [place] [address] Apr, [facility] [address] [id number] [place] [address] Mar, [facility] [address] [id number] [place] [address] Mar, [facility] [address] [id number] [place] [address] Mar, [facility] [address] [id number] [place] [address] Mar, [facility] [address] [id number] [place] [address] 18 Jan, 2012 [facility] [address] [id number] [place] [address] 10 Jan, 2012 [facility] [address] [id number] [place] [address] Jan, [facility] [address] [id number] [place] [address] 06 Jan, [address] [facility] [address] [id number] [place] [id number] Dec, [facility] [address] [id number] [place] [address] Dec, [facility] [address] [id number] [place] [id number] Dec, [facility] [address] [address] Dec, [facility] [address] [address] Dec, [facility] [address] [address] Dec, [facility] [address] [address] Nov, [facility] [address] [address] Nov, [facility] [address] [address] Nov, IMMUNIZATIONS No Known Immunizations SOCIAL HISTORY [...] asthma(493.90) Medical History Near syncope Medical History senior care current use of anticoagulant Medical History Renal [...] Stent placed 08/19/2017 Hospitalization History Syncope- [facility] 12/2017 Hospitalization History heart cath ( 06/23/18-06/25/2018) Hospitalization History heart problem, overnight stay 9
--- OUTSIDE RECORDS SUMMARY | 2019-11-03 19:28 | XMS REPORT ---
Author Author Anca PALAFOX Organization [facility] Address [address] [place] [address] Care Team Providers Care Contact Center Consultant Name Role Phone DONI PALAFOX Unavailable PROBLEMS Type Condition ICD9-CM Code PHR84-GZ Code Onset Dates Condition S tatus SNOMED Code Problem Esophageal reflux K21.9 Active 24 3108374 Problem Dyslipidemia E78.5 12 Oct, 2017 Active 3709 22689 Problem Unspecified hypothyroidism E03.9 Act hernesto 46281428 Problem Generalized anxiety disorder F41.1 23 Apr, 200 8 Active 19545106 Problem Shortness of breath R06.02 Apr, Active 951706180 Problem Pulmonary embolus I26.99 13 Oct, 2011 Active 00858270 Problem Nonintractable migraine G43.009 08 Oct, 2015 Act hernesto [id number] Problem Pre-diabetes R73.03 Active 7038445 02 Problem Morbid obesity with BMI of 50.0-59.9, adult Z68.43 Active 205508049 Problem Hypothyroidism E03.9 Active 39987 008 Problem Morbid obesity E66.01 Active 83888 6002 Problem Unspecified sleep apnea G47.30 Active 77617402 Problem Personal history of pulmonary embolism Z86.711 Active 900809912 Problem Osteoarthritis of right knee M17.11 13 May, 201 0 Active 500836401 Problem Renal stones N20.0 Active 1283263 7 Problem Coronary artery disease I25.10 Active 64870584 Problem Hyperlipidemia LDL goal <70 E78.5 Ac tive 61679043 Problem Migraine with aura and without status migrainosu s, not intractable G43.109 Active 2095498 ALLERGIES No Information ENCOUNTERS Encounter Location Date Diagnosis [facility] [address] 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 and Dizziness R42 [facility] [address] [facility] [id number] [address] [place] [address] Apr, Non-recurrent acute suppurat hernesto otitis media of both ears without spontaneous rupture of tympanic membranes H66.003 [place] [address] [address] 08 Feb, 2019 Pre-diabetes R73.03 and Hyperlipidemia L DL goal <[address] [address] Feb, [place] [address] [address] Feb, [address] [address] Jan, [place] [address] [address] Jan, [address] [address] Jan, Encounter for Medicare annual wellness e xam Z00.00 ; Hyperlipidemia LDL goal <70 E78.5 ; Coronary artery disease I25.10 ; Hypothyroidism E03.9 ; Osteoarthritis of right knee M17.11 ; Morbid obesity with BMI of 50.0-59.9, adult Z68.43 and Esophageal reflux K21.[address] [address] 13 Jan, 2019 Dysuria R30.0 and Hematuria, unspecified type R31.[address] [address] Jan, Hematuria, unspecified type R31.9 [facility] [address] [address] Dec, Hematuria, unspecified type R31.9 [facility] [address] [place] [id number] [place] [address] Nov, Hematuria, unspecified type R31.[address] [place] [address] Nov, Other microscopic hematuria R31.29 [facility] [address] [address] Nov, Vaginal gena B37.3 ; Other microscopi c hematuria R31.29 and Morbid obesity E66.01 [place] [address] [address] Nov, [place] [address] [address] Nov, [facility] [address] [place] [id number] [address] [place] [address] Nov, UTI symptoms R39.9 and Morbi d obesity E66.01 [place] [address] [address] Nov, [place] [address] [address] September, [place] [address] [address] September, [place] [address] [address] Aug, Right foot pain M79.671 and Morbid obesi ty E66.01 [place] [address] [address] Jul, Right foot pain M79.671 and Morbid obesi ty E66.01 [facility] [address] [facility] [id number] [address] [place] [address] Jul, Injury of right foot, initia l encounter S99.921A and Morbid obesity E66.01 [place] [address] [address] 05 Jul, 2018 Recurrent syncope R55 and Morbid obesity E66.01 [place] [address] [address] Jul, [place] [address] [address] Jun, Hematuria, unspecified type R31.9 and BM I 50.0-59.9, adult Z68.43 [place] [address] [address] 07 Jun, 2018 [place] [address] [place] [address] Jun, pen[facility]entiary current use of ant icoagulant Z79.01 [facility] [address] [place] [id number] [address] [place] [address] May, Ankle pain, right M25.571 an d BMI 50.0-59.9, adult Z68.43 [place] [address] [address] May, [place] [address] [address] May, [place] [address] [address] Apr, [place] [address] [address] Apr, [place] [address] [address] Apr, [facility] [address] [facility] [id number] [address] [place] [address] Apr, BMI 50.0-59.9, adult Z68.43 and Weakness R53.1 [place] [address] [address] Apr, [facility] [place] [address] [address] Apr, Dysuria R30.0 ; Hematuria R3 1.9 ; Renal lithiasis N20.0 and BMI 50.0-59.9, adult Z68.43 [place] [address] [address] Apr, [place] [address] [address] Apr, [place] [address] [address] 05 Apr, 2018 Hypothyroidism E03.9 [place] [address] [address] 04 Apr, 2018 Burning with urination R30.0 ; 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, 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 ; Acute bilateral low back pain without sciatica M54.5 and BMI 50.0-59.9, adult Z68.43 [place] [address] [address] 02 Mar, 2018 Hypothyroidism E03.9 [place] [address] [address] Feb, [facility] [place] [address] [address] Jan, [place] [address] [address] 07 Jan, 2018 Acute non-recurrent maxillary sinusitis J01.00 and BMI 50.0-59.9, adult Z68.43 [facility] [place] [address] [address] 04 Jan, 2018 Congestion of upper respirat ory tract J98.8 and BMI 50.0-59.9, adult Z68.43 [place] [address] [address] Dec, Type 2 diabetes mellitus with diabetic n europathic arthropathy, 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 ; Morbid obesity with BMI of 50.0-59.9, adult Z68.43 ; Hypothyroidism E03.9 ; Coronary artery disease I25.10 ; Hyperlipidemia LDL goal <70 E78.5 ; Right lower quadrant abdominal pain R10.31 and Acute cystitis with hematuria N30.01 [facility] [address] [facility] [id number] [address] [place] [address] Dec, Migraine with aura and witho ut status migrainosus, not intractable G43.109 ; Dehydration symptoms R63.8 and BMI 50.0-59.9, adult Z68.43 [place] [address] [address] Oct, [place] [address] [address] Oct, [place] [address] [address] Oct, [place] [address] [address] September, [place] [address] [address] September, Type 2 diabetes mellitus with diabetic n europathic arthropathy, 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 ; Hyperlipidemia, unspecified hyperlipidemia type E78.5 ; Personal history of pulmonary embolism Z86.711 ; Coronary artery disease I25.10 and Hypothyroidism E03.9 [place] [address] [address] September, [place] [address] [address] Aug, Type 2 diabetes mellitus with diabetic [...] without aura and with status migrainosus G43.011 [place] [address] [address] Aug, [place] [address] [address] Aug, [place] [address] [address] Jul, Renal stones N20.0 [facility] [address] [facility] [id number] [address] [place] [address] Jun, Back pain M54.9 ; Kidney sto radha N20.0 and BMI 50.0-59.9, adult Z68.43 [place] [address] [address] Jun, [place] [address] [address] Apr, [place] [address] [address] Apr, [place] [address] [address] Apr, Right foot pain M79.671 ; Acute gout inv olving toe of right foot, 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 and Arthritis M19.90 [place] [address] [address] 06 Apr, 2017 Gastroesophageal reflux disease without esophagitis K21.9 [place] [address] [address] 16 Mar, 2017 Hypothyroidism, unspecified E03.9 [place] [address] [address] Feb, [place] [address] [address] 25 Jan, 2017 Cervicalgia of adwyjxiv-hacznrq-prrab re gion M54.2 and Persistent headaches R51 [place] [address] [address] 20 Jan, 2017 [place] [address] [address] 12 Jan, 2017 Intractable migraine without aura and wi th status migrainosus G43.011 ; Cervical spine pain M54.2 ; Hyperlipidemia, unspecified hyperlipidemia type E78.5 ; Hypothyroidism E03.9 and Metabolic syndrome E88.[address] [address] Jan, Hypothyroidism, unspecified E03.9 [place] [address] [address] Dec, Hypothyroidism, unspecified E03.[address] [address] Dec, Hypothyroidism E03.[address] [address] Nov, Laceration of left great toe w/o foreign body w/o damage to nail, initial encounter S91.112A [facility] [address] [facility] [id number] [address] [place] [address] Oct, Pain in left knee M25.562 an d Arthritis M19.[address] [address] Oct, Hypothyroidism, unspecified E03.9 and Hy perlipidemia, unspecified hyperlipidemia type E78.[address] [address] Oct, Gastroesophageal reflux disease without esophagitis K21.9 [place] [address] [address] 14 Oct, 2016 Metabolic syndrome E88.81 ; Personal his tory of pulmonary embolism Z86.711 ; Other specified hypothyroidism E03.8 and Hyperlipidemia, unspecified hyperlipidemia type E78.5 [place] [address] [address] 13 Oct, 2016 Personal history of pulmonary embolism Z 86.711 ; Dysuria R30.0 ; Metabolic syndrome E88.81 ; Other specified hypothyroidism E03.8 ; Hyperlipidemia, unspecified hyperlipidemia type E78.5 and Morbid obesity with BMI of 50.0-59.9, adult Z68.43 [place] [address] [address] September, [facility] [address] [address] September, Wrist pain, left M25.532 and Acute pain of left knee M25.562 [place] [address] [address] Jul, Dysuria R30.0 [place] [address] [address] Jul, Dysuria R30.[address] [address] Jul, Left lower quadrant pain R10.32 [place] [address] [address] Jul, [address] [address] Jul, Coronary artery disease I25.10 ; Family history of diabetes mellitus Z83.3 ; Morbid obesity with BMI of 50.0-59.9, adult Z68.43 ; Metabolic syndrome E88.81 ; Personal history of pulmonary embolism Z86.711 ; Gastroesophageal reflux disease without esophagitis K21.9 ; Hypothyroidism, unspecified E03.9 ; Hyperlipidemia, unspecified hyperlipidemia type E78.5 and Left lower quadrant pain R10.32 [facility] [place] [id number] [address] [place] [address] Jul, [facility] [address] [place] [address] 08 Jul, 2016 Morbid obesity with BMI of 5 0.0-59.9, adult Z68.43 [facility] [address] [address] 07 Jul, 2016 Generalized abdominal pain R 10.84 [facility] [address] [address] 02 Jun, 2016 Muscle strain of right upper back, initial encounter S29.012A [facility] [address] [address] May, Foreign body (FB) in soft ti ssue M79.[address] [address] Mar, Hypothyroidism, unspecified E03.9 and Ar thritis M19.[address] [address] Feb, Coronary artery disease I25.10 ; Morbid obesity with BMI of 50.0-59.9, adult Z68.43 ; Metabolic syndrome E88.81 ; Gastroesophageal reflux disease without esophagitis K21.9 ; Hypothyroidism, unspecified E03.9 ; Personal history of pulmonary embolism Z86.711 and Hyperlipidemia, unspecified hyperlipidemia type E78.[address] [address] Feb, [facility] [address] [address] Jan, Acute right-sided thoracic b ack pain M54.[address] [address] Jan, Acute pain of left knee M25.[address] [address] Dec, Dysuria R30.0 ; Metabolic syndrome E88.8 1 ; Acute pain of left knee M25.562 ; Acute cystitis with hematuria N30.01 and Acute left eye pain H57.12 [place] [address] [address] Dec, [place] [address] [address] Dec, [place] [address] [address] Dec, Hypothyroidism, unspecified E03.9 [place] [address] [address] Dec, [place] [address] [address] Nov, Peripheral edema R60.9 and Acute pain of left knee M25.562 [facility] [address] [address] September, [place] [address] [address] September, Metabolic syndrome E88.81 and Allergy, s ubsequent encounter T78.40XD [facility] [address] [address] September, Muscle strain T14.[address] [address] Aug, Chest pressure R07.89 ; Metabolic syndro me E88.81 ; Morbid obesity with BMI of 50.0-59.9, adult Z68.43 ; Esophageal reflux 530.81 and Shortness of breath R06.02 [place] [address] [address] Aug, [address] [address] Aug, [place] [address] [address] Aug, Hypothyroidism, unspecified E03.9 [place] [address] [address] Aug, Routine health maintenance Z00.00 [facility] [place] [address] [place] [id number] [place] [address] Aug, [place] [address] [address] Jul, Routine health maintenance Z00.00 ; Fami ly history of diabetes mellitus Z83.3 ; Family history of cancer Z80.9 and Morbid obesity with BMI of 50.0-59.9, adult Z68.43 [facility] [address] [address] Jul, Allergic rhinitis J30.9 and Postnasal drip R09.[address] [address] Jul, Influenza J11.1 [facility] [address] [address] Jul, Dysuria R30.[address] [address] Apr, [address] [address] Mar, Acute upper respiratory infection, unspe cified J06.9 and Hypothyroidism E03.[address] [address] Mar, [address] [address] Feb, Coronary artery disease I25.[address] [address] 16 Feb, 2015 Left foot pain M79.[address] [address] Jan, UTI (urinary tract infection) 599.[address] [id number] [place] [address] Jan, Urinary tract infection, site not specif ied 599.0 [facility] [address] [address] Jan, Urinary tract infection, site not specif ied 599.0 [facility] [address] [address] Jan, [facility] [address] [address] Dec, Headache 784.0 [facility] [address] [address] Dec, Urinary tract infection, site not specif ied 599.0 [place] [address] [address] Dec, Urinary tract infection, site not specif ied 599.0 [place] [address] [address] Dec, Urinary tract infection, site not specif ied 599.0 [place] [address] [address] Nov, Unspecified sleep apnea 780.57 ; Encount er for long-term (current) use of anticoagulants V58.61 ; Routine general medical examination at health care facility V70.0 and Arthritis of both knees 716.96 [place] [address] [address] September, Cat bite of hand 882.0 and Rectal bleedi ng 569.3 [place] [address] [address] Aug, [place] [address] [address] Aug, [facility] [address] [address] Jul, [facility] [address] [place] [address] Jul, [facility] [place] [facility] [address] [id number] [place] [address] Jul, [facility] [place] [facility] [address] [id number] [place] [address] Jul, [facility] [place] [facility] [address] [id number] [place] [address] Jul, [facility] [place] [facility] [address] [id number] [place] [address] Jul, [facility] [place] [facility] [address] [id number] [place] [address] Jul, [facility] [place] [facility] [address] [id number] [place] [address] Jul, [facility] [place] [facility] [address] [id number] [place] [address] May, [facility] [place] [facility] [address] [id number] [place] [address] May, [facility] [place] [facility] [address] [id number] [place] [address] May, [facility] [place] [facility] [address] [id number] [place] [address] May, [facility] [place] [facility] [address] [id number] [place] [address] May, [facility] [place] [facility] [address] [id number] [place] [address] May, [facility] [place] [facility] [address] [id number] [place] [address] May, [facility] [place] [facility] [address] [id number] [place] [address] Mar, [facility] [place] [facility] [address] [id number] [place] [address] Mar, [facility] [place] [facility] [address] [id number] [place] [address] Jan, [facility] [place] [facility] [address] [id number] [place] [address] 08 Jan, 2013 [facility] [place] [facility] [address] [facility] [id number] [place] [address] 08 Jan, 2013 [facility] [place] [facility] [address] [facility] [id number] [place] [address] Jan, 2013 [facility] [place] [facility] [address] [id number] [place] [address] Jan, 2013 [facility] [place] [facility] [address] [facility] [id number] [place] [address] Jan, 2013 [facility] [place] [facility] [address] [id number] [place] [address] Dec, [facility] [place] [facility] [address] [id number] [place] [address] Dec, [facility] [place] [facility] [address] [id number] [place] [address] Dec, [facility] [place] [facility] [address] [id number] [place] [address] Dec, [facility] [place] [facility] [address] [id number] [place] [address] Dec, [facility] [place] [facility] [address] [id number] [place] [address] Dec, [facility] [place] [facility] [address] [id number] [place] [address] Dec, [facility] [place] [facility] [address] [id number] [place] [address] Dec, [facility] [place] [facility] [address] [facility] [id number] [place] [address] Dec, [facility] [place] [facility] [address] [id number] [place] [address] Dec, [facility] [place] [facility] [address] [id number] [place] [address] Nov, [facility] [place] [facility] [address] [id number] [place] [address] Nov, [facility] [place] [facility] [address] [facility] [id number] [place] [address] September, [facility] [place] [facility] [address] [facility] [id number] [place] [address] September, [facility] [place] [facility] [address] [id number] [place] [address] September, [facility] [place] [facility] [address] [id number] [place] [address] September, [facility] [place] [facility] [address] [facility] [id number] [place] [address] Aug, [facility] [place] [facility] [address] [id number] [place] [address] Aug, [facility] [place] [facility] [address] [id number] [place] [address] Aug, [facility] [place] [facility] [address] [id number] [place] [address] Aug, [facility] [place] [facility] [address] [id number] [place] [address] Aug, [facility] [place] [facility] [address] [id number] [place] [address] Aug, [facility] [place] [facility] [address] [id number] [place] [address] Aug, [facility] [place] [facility] [address] [id number] [place] [address] Aug, [facility] [place] [facility] [address] [id number] [place] [address] Aug, [facility] [place] [facility] [address] [id number] [place] [address] Aug, [facility] [place] [address] [id number] [place] [address] Aug, [facility] [address] [id number] [place] [address] Aug, [facility] [address] [id number] [place] [address] Jul, [facility] [address] [facility] [id number] [place] [address] Jul, [facility] [address] [id number] [place] [address] Jul, [facility] [address] [id number] [place] [address] Jul, [facility] [address] [id number] [place] [address] Jul, [facility] [address] [id number] [place] [address] Jul, [facility] [address] [id number] [place] [address] Jul, [facility] [address] [id number] [place] [address] Jul, [facility] [address] [id number] [place] [address] Jul, [facility] [address] [id number] [place] [address] Jul, [facility] [address] [id number] [place] [address] Jun, [facility] [address] [id number] [place] [address] Jun, [facility] [address] [id number] [place] [address] Jun, [facility] [address] [id number] [place] [address] Jun, [facility] [address] [id number] [place] [address] Jun, [facility] [address] [id number] [place] [address] Jun, [facility] [address] [id number] [place] [address] Jun, [facility] [address] [facility] [id number] [place] [address] Jun, [facility] [address] [facility] [id number] [place] [address] Jun, [facility] [address] [id number] [place] [address] Jun, [facility] [address] [id number] [place] [address] Jun, [facility] [address] [facility] [id number] [place] [address] Jun, [facility] [address] [id number] [place] [address] May, [facility] [address] [id number] [place] [address] May, [facility] [address] [id number] [place] [address] May, [facility] [address] [id number] [place] [address] May, [facility] [address] [id number] [place] [address] May, [facility] [address] [id number] [place] [address] May, [facility] [address] [id number] [place] [address] May, [facility] [address] [id number] [place] [address] May, [facility] [address] [id number] [place] [address] May, [facility] [address] [id number] [place] [address] May, [facility] [address] [id number] [place] [address] May, [facility] [address] [id number] [place] [address] 08 May, 2013 [facility] [address] [id number] [place] [address] May, [facility] [address] [id number] [place] [address] May, [facility] [address] [id number] [place] [address] May, [facility] [address] [id number] [place] [address] Apr, [facility] [address] [id number] [place] [address] Apr, [facility] [address] [id number] [place] [address] Apr, [facility] [address] [id number] [place] [address] Apr, [facility] [address] [id number] [place] [address] Mar, [facility] [address] [id number] [place] [address] Mar, [facility] [address] [id number] [place] [address] Mar, [facility] [address] [id number] [place] [address] Mar, [facility] [address] [id number] [place] [address] Mar, [facility] [address] [id number] [place] [address] Mar, [facility] [id number] [place] [address] Mar, [facility] [address] [id number] [place] [address] Mar, [facility] [address] [id number] [place] [address] Mar, [facility] [id number] [place] [address] Mar, [facility] [address] [id number] [place] [address] Mar, [facility] [address] [id number] [place] [address] Mar, [facility] [address] [id number] [place] [address] Feb, [facility] [address] [id number] [place] [address] 18 Jan, 2013 [facility] [address] [id number] [place] [address] 17 Jan, 2013 [facility] [address] [id number] [place] [address] 06 Jan, 2013 [facility] [address] [id number] [place] [address] Jan, [facility] [address] [id number] [place] [address] Jan, [facility] [address] [id number] [place] [address] Dec, [facility] [address] [id number] [place] [address] Dec, [facility] [address] [id number] [place] [address] Dec, [facility] [address] [id number] [place] [address] Dec, [facility] [address] [id number] [place] [address] Dec, [facility] [address] [id number] [place] [address] Dec, [facility] [address] [id number] [place] [address] Dec, [facility] [address] [id number] [place] [address] Dec, [facility] [address] [id number] [place] [address] Nov, [facility] [address] [id number] [place] [address] Nov, [facility] [address] [id number] [place] [address] Nov, [facility] [address] [id number] [place] [address] Nov, [facility] [address] [id number] [place] [address] Nov, [facility] [address] [id number] [place] [address] Nov, [facility] [address] [id number] [place] [address] Oct, [facility] [address] [id number] [id number] Oct, [facility] [address] [id number] [id number] Oct, [facility] [address] [id number] [id number] Oct, [facility] [id number] [id number] Oct, [facility] [address] [id number] [place] [address] Oct, [facility] [address] [id number] [place] [address] Oct, [facility] [address] [id number] [place] [address] Oct, [facility] [address] [id number] [place] [address] Oct, [facility] [address] [id number] [place] [address] Oct, [facility] [address] [id number] [place] [address] Oct, [facility] [address] [id number] [place] [address] September, [facility] [address] [id number] [place] [address] Aug, [facility] [address] [id number] [place] [address] Aug, [facility] [address] [id number] [place] [address] Aug, [facility] [address] [id number] [place] [address] Aug, [facility] [address] [id number] [place] [address] 24 Jul, 2012 [facility] [address] [id number] [place] [address] Jul, [facility] [address] [id number] [place] [address] Jul, [facility] [address] [id number] [place] [address] Jul, [facility] [address] [id number] [place] [address] Jul, [facility] [address] [id number] [place] [address] Jun, [facility] [address] [id number] [place] [address] Jun, [facility] [address] [id number] [place] [address] Jun, [facility] [address] [id number] [place] [address] May, [facility] [address] [id number] [place] [address] 24 May, 2012 [facility] [address] [id number] [place] [address] May, [facility] [address] [id number] [place] [address] 11 May, 2012 [facility] [address] [id number] [place] [address] May, [facility] [address] [id number] [place] [address] May, [facility] [address] [id number] [place] [address] 18 Apr, 2012 [facility] [address] [id number] [place] [address] 18 Apr, 2012 [facility] [address] [id number] [place] [address] 13 Apr, 2012 [facility] [address] [id number] [place] [address] 13 Apr, 2012 [facility] [address] [id number] [place] [address] Apr, [facility] [address] [id number] [place] [address] Apr, [facility] [address] [id number] [place] [address] Apr, [facility] [address] [id number] [place] [address] Mar, [facility] [address] [id number] [place] [address] Mar, [facility] [address] [id number] [place] [address] Mar, [facility] [address] [id number] [place] [address] Mar, [facility] [address] [id number] [place] [address] 18 Jan, 2012 [facility] [address] [id number] [place] [address] 10 Jan, 2012 [facility] [address] [id number] [place] [address] 06 Jan, 2012 [facility] [id number] [place] [address] Jan, [facility] [id number] [place] [id number] Dec, [facility] [id number] [place] [address] Dec, [facility] [address] [id number] [place] [id number] Dec, [facility] [address] [address] Dec, [facility] [address] [address] Dec, [facility] [address] [address] Dec, [facility] [address] [address] Nov, [facility] [address] [address] Nov, [facility] [address] [address] Nov, IMMUNIZATIONS No Known Immunizations SOCIAL HISTORY [...] hx of donovan PE/ followed by Dr. 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
--- OUTSIDE RECORDS SUMMARY | 2019-11-03 19:29 | XMS REPORT ---
Author Author Anca Lucero Doctor Organization [facility] Address Unknown Phone Unavailable Care Team Providers Care Shake Feeder Name Role Phone Migration, Doctor Unavailable Unavailable PROBLEMS Type Condition ICD9-CM Code FAF25-HG Code Onset Dates Condition S tatus SNOMED Code Problem Generalized anxiety disorder F41.1 Apr, 200 8 Active 43310593 Problem Shortness of breath R06.02 23 Apr, 2008 Active 761100659 Problem Dyslipidemia E78.5 12 Oct, 2017 Active 3709 70537 Problem Unspecified hypothyroidism E03.9 Act hernesto 60099453 Problem Nonintractable migraine G43.009 08 Oct, 2015 Act hernesto 639239946 Problem Esophageal reflux K21.9 Active 24 1985412 Problem Unspecified sleep apnea G47.30 Active 51466618 Problem Pre-diabetes R73.03 Active 5119382 02 Problem Morbid obesity with BMI of 50.0-59.9, adult Z68.43 Active 962848469 Problem Migraine with aura and without status migrainosu s, not intractable G43.109 Active 5745637 Problem Osteoarthritis of right knee M17.11 13 May, 201 0 Active 637999218 Problem Morbid obesity E66.01 Active 97893 6002 Problem Pulmonary embolus I26.99 13 Oct, 2011 Active 84290310 Problem Hypothyroidism E03.9 Active 35928 008 Problem Renal stones N20.0 Active 3517055 7 Problem Coronary artery disease I25.10 Active 04364390 Problem Hyperlipidemia LDL goal <70 E78.5 Ac tive 64440435 ALLERGIES No Information ENCOUNTERS Encounter Location Date Diagnosis [facility] [address] 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 [id number] [address] [place] [address] Apr, Non-recurrent acute suppurat hernesto otitis media of both ears without spontaneous rupture of tympanic membranes H66.003 [place] [address] [address] 08 Feb, 2019 Pre-diabetes R73.03 and Hyperlipidemia L DL goal <[address] [address] Feb, [place] [address] [address] Feb, [place] [address] [address] Jan, [place] [address] [address] Jan, [address] [address] Jan, Encounter for Medicare annual wellness e xam Z00.00 ; Hyperlipidemia LDL goal <70 E78.5 ; Coronary artery disease I25.10 ; Hypothyroidism E03.9 ; Osteoarthritis of right knee M17.11 ; Morbid obesity with BMI of 50.0-59.9, adult Z68.43 and Esophageal reflux K21.9 [place] [address] [address] Jan, Dysuria R30.0 and Hematuria, unspecified type R31.9 [place] [address] [address] Jan, Hematuria, unspecified type R31.9 [place] [address] [address] Dec, Hematuria, unspecified type R31.9 [place] [address] [address] Nov, Hematuria, unspecified type R31.9 [address] [place] [address] Nov, Other microscopic hematuria R31.29 [facility] [address] [address] 24 Nov, 2018 Vaginal gena B37.3 ; Other microscopi c hematuria R31.29 and Morbid obesity E66.01 [facility] [address] [address] Nov, [facility] [address] [address] Nov, [facility] [address] [place] [id number] [address] [place] [address] Nov, UTI symptoms R39.9 and Morbi d obesity E66.01 [place] [address] [address] Nov, [place] [address] [address] September, [place] [address] [address] September, [place] [address] [address] Aug, Right foot pain M79.671 and Morbid obesi ty E66.01 [place] [address] [address] Jul, Right foot pain M79.671 and Morbid obesi ty E66.01 [facility] [address] [place] [address] Jul, Injury of right foot, initia l encounter S99.921A and Morbid obesity E66.01 [place] [address] [address] Jul, Recurrent syncope R55 and Morbid obesity E66.01 [place] [address] [address] Jul, [place] [address] [address] Jun, Hematuria, unspecified type R31.9 and BM I 50.0-59.9, adult Z68.43 [place] [address] [address] 07 Jun, [address] [place] [address] 04 Jun, 2018 [facility] current use of ant icoagulant Z79.01 [facility] [address] [place] [id number] [place] [address] May, Ankle pain, right M25.571 an d BMI 50.0-59.9, adult Z68.43 [place] [address] [address] May, [place] [address] [address] May, [place] [address] [address] Apr, [place] [address] [address] Apr, [place] [address] [address] Apr, [facility] [place] [address] [place] [id number] [place] [address] Apr, BMI 50.0-59.9, adult Z68.43 and Weakness R53.1 [place] [address] [address] Apr, [facility] [address] [address] Apr, Dysuria R30.0 ; Hematuria R3 1.9 ; Renal lithiasis N20.0 and BMI 50.0-59.9, adult Z68.43 [place] [address] [address] Apr, [place] [address] [address] Apr, [place] [address] [address] Apr, Hypothyroidism E03.9 [place] [address] [address] Apr, Burning with urination R30.0 ; 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, 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 ; Acute bilateral low back pain without sciatica M54.5 and BMI 50.0-59.9, adult Z68.43 [place] [address] [address] 02 Mar, 2018 Hypothyroidism E03.9 [place] [address] [address] Feb, [facility] [place] [address] [address] 15 Jan, 2018 [place] [address] [address] 07 Jan, 2018 Acute non-recurrent maxillary sinusitis J01.00 and BMI 50.0-59.9, adult Z68.[address] [address] 04 Jan, 2018 Congestion of upper respirat ory tract J98.8 and BMI 50.0-59.9, adult Z68.43 [place] [address] [address] Dec, Type 2 diabetes mellitus with diabetic n europathic arthropathy, 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 ; Morbid obesity with BMI of 50.0-59.9, adult Z68.43 ; Hypothyroidism E03.9 ; Coronary artery disease I25.10 ; Hyperlipidemia LDL goal <70 E78.5 ; Right lower quadrant abdominal pain R10.31 and Acute cystitis with hematuria N30.01 [facility] [address] [place] [address] Dec, Migraine with aura and witho ut status migrainosus, not intractable G43.109 ; Dehydration symptoms R63.8 and BMI 50.0-59.9, adult Z68.43 [place] [address] [address] Oct, [place] [address] [address] Oct, [place] [address] [address] Oct, [place] [address] [address] September, [place] [address] [address] September, Type 2 diabetes mellitus with diabetic n europathic arthropathy, 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 ; Hyperlipidemia, unspecified hyperlipidemia type E78.5 ; Personal history of pulmonary embolism Z86.711 ; Coronary artery disease I25.10 and Hypothyroidism E03.9 [place] [address] [address] September, [place] [address] [address] Aug, Type 2 diabetes mellitus with diabetic [...] without aura and with status migrainosus G43.011 [place] [address] [address] Aug, [place] [address] [address] Aug, [place] [address] [address] Jul, Renal stones N20.0 [facility] [address] [facility] [id number] [address] [place] [address] Jun, Back pain M54.9 ; Kidney sto radha N20.0 and BMI 50.0-59.9, adult Z68.43 [place] [address] [address] Jun, [place] [address] [address] Apr, [place] [address] [address] Apr, [place] [address] [address] Apr, Right foot pain M79.671 ; Acute gout inv olving toe of right foot, 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 and Arthritis M19.90 [place] [address] [address] 06 Apr, 2017 Gastroesophageal reflux disease without esophagitis K21.9 [place] [address] [address] 16 Mar, 2017 Hypothyroidism, unspecified E03.9 [place] [address] [address] Feb, [place] [address] [address] 25 Jan, 2017 Cervicalgia of leplqzdx-vhiglwu-lpbht re gion M54.2 and Persistent headaches R51 [place] [address] [address] 20 Jan, [address] [address] 12 Jan, 2017 Intractable migraine without aura and wi th status migrainosus G43.011 ; Cervical spine pain M54.2 ; Hyperlipidemia, unspecified hyperlipidemia type E78.5 ; Hypothyroidism E03.9 and Metabolic syndrome E88.81 [place] [address] [address] Jan, Hypothyroidism, unspecified E03.9 [place] [address] [address] Dec, Hypothyroidism, unspecified E03.9 [place] [address] [address] Dec, Hypothyroidism E03.9 [place] [address] [address] Nov, Laceration of left great toe w/o foreign body w/o damage to nail, initial encounter S91.112A [facility] [address] [facility] [id number] [address] [place] [address] Oct, Pain in left knee M25.562 an d Arthritis M19.90 [place] [address] [address] Oct, Hypothyroidism, unspecified E03.9 and Hy perlipidemia, unspecified hyperlipidemia type E78.[address] [address] 22 Oct, 2016 Gastroesophageal reflux disease without esophagitis K21.9 [place] [address] [address] 14 Oct, 2016 Metabolic syndrome E88.81 ; Personal his tory of pulmonary embolism Z86.711 ; Other specified hypothyroidism E03.8 and Hyperlipidemia, unspecified hyperlipidemia type E78.5 [place] [address] [address] 13 Oct, 2017 Personal history of pulmonary embolism Z 86.711 ; Dysuria R30.0 ; Metabolic syndrome E88.81 ; Other specified hypothyroidism E03.8 ; Hyperlipidemia, unspecified hyperlipidemia type E78.5 and Morbid obesity with BMI of 50.0-59.9, adult Z68.43 [place] [id number] [place] [address] September, [facility] [address] [address] September, Wrist pain, left M25.532 and Acute pain of left knee M25.562 [place] [address] [address] Jul, Dysuria R30.[address] [address] Jul, Dysuria R30.[address] [address] Jul, Left lower quadrant pain R10.[address] [address] Jul, [address] [address] Jul, Coronary artery disease I25.10 ; Family history of diabetes mellitus Z83.3 ; Morbid obesity with BMI of 50.0-59.9, adult Z68.43 ; Metabolic syndrome E88.81 ; Personal history of pulmonary embolism Z86.711 ; Gastroesophageal reflux disease without esophagitis K21.9 ; Hypothyroidism, unspecified E03.9 ; Hyperlipidemia, unspecified hyperlipidemia type E78.5 and Left lower quadrant pain R10.32 [facility] [place] [id number] [place] [address] Jul, [facility] [place] [id number] [place] [address] 08 Jul, 2016 Morbid obesity with BMI of 5 0.0-59.9, adult Z68.43 [facility] [place] [id number] [place] [address] Jul, Generalized abdominal pain R 10.84 [facility] [place] [id number] [place] [address] Jun, Muscle strain of right upper back, initial encounter S29.012A [facility] [address] [place] [id number] [place] [address] 16 May, 2016 Foreign body (FB) in soft ti ssue M79.5 [place] [address] [address] Mar, Hypothyroidism, unspecified E03.9 and Ar thritis M19.90 [place] [address] [address] 13 Feb, 2016 Coronary artery disease I25.10 ; Morbid obesity with BMI of 50.0-59.9, adult Z68.43 ; Metabolic syndrome E88.81 ; Gastroesophageal reflux disease without esophagitis K21.9 ; Hypothyroidism, unspecified E03.9 ; Personal history of pulmonary embolism Z86.711 and Hyperlipidemia, unspecified hyperlipidemia type E78.5 [place] [address] [address] Feb, [facility] [place] [address] [place] [id number] [place] [address] 12 Jan, 2016 Acute right-sided thoracic b ack pain M54.6 [place] [address] [address] Jan, Acute pain of left knee M25.562 [place] [address] [address] 18 Dec, 2015 Dysuria R30.0 ; Metabolic syndrome E88.8 1 ; Acute pain of left knee M25.562 ; Acute cystitis with hematuria N30.01 and Acute left eye pain H57.12 [place] [address] [address] Dec, [place] [address] [address] Dec, [place] [address] [address] Dec, Hypothyroidism, unspecified E03.9 [place] [address] [address] Dec, [place] [address] [address] Nov, Peripheral edema R60.9 and Acute pain of left knee M25.562 [facility] [place] [address] [place] [id number] [place] [address] September, [place] [address] [address] September, Metabolic syndrome E88.81 and Allergy, s ubsequent encounter T78.40XD [facility] [place] [address] [address] September, Muscle strain T14.8 [place] [address] [address] Aug, Chest pressure R07.89 ; Metabolic syndro me E88.81 ; Morbid obesity with BMI of 50.0-59.9, adult Z68.43 ; Esophageal reflux 530.81 and Shortness of breath R06.02 [place] [address] [address] Aug, [place] [address] [address] Aug, [place] [address] [address] Aug, Hypothyroidism, unspecified E03.9 [place] [address] [address] Aug, Routine health maintenance Z00.00 [facility] [place] [address] [place] [id number] [place] [address] Aug, [place] [address] [address] Jul, Routine health maintenance Z00.00 ; Fami ly history of diabetes mellitus Z83.3 ; Family history of cancer Z80.9 and Morbid obesity with BMI of 50.0-59.9, adult Z68.43 [facility] [address] [place] [id number] [place] [address] 28 Jul, 2015 Allergic rhinitis J30.9 and Postnasal drip R09.82 [place] [address] [address] 18 Jul, 2015 Influenza J11.1 [facility] [address] [place] [id number] [place] [address] 08 Jul, 2015 Dysuria R30.0 [place] [address] [address] Apr, [place] [address] [address] Mar, Acute upper respiratory infection, unspe cified J06.9 and Hypothyroidism E03.9 [place] [address] [address] Mar, [place] [address] [address] Feb, Coronary artery disease I25.10 [place] [address] [address] Feb, Left foot pain M79.672 [place] [address] [address] Jan, UTI (urinary tract infection) 599.0 [place] [address] [address] Jan, Urinary tract infection, site not specif ied 599.0 [place] [address] [address] Jan, Urinary tract infection, site not specif ied 599.0 [place] [address] [address] Jan, [place] [address] [address] Dec, Headache 784.0 [facility] [address] [place] [id number] [place] [address] Dec, Urinary tract infection, site not specif ied 599.0 [facility] [address] [place] [id number] [place] [address] Dec, Urinary tract infection, site not specif ied 599.0 [facility] [address] [address] Dec, Urinary tract infection, site not specif ied 599.0 [place] [address] [address] Nov, Unspecified sleep apnea 780.57 ; Encount er for long-term (current) use of anticoagulants V58.61 ; Routine general medical examination at health care facility V70.0 and Arthritis of both knees 716.96 [place] [address] [address] September, Cat bite of hand 882.0 and Rectal bleedi ng 569.3 [place] [address] [address] Aug, [facility] [address] [address] Aug, [facility] [address] [address] Jul, [facility] [address] [address] Jul, [facility] [address] [address] Jul, [facility] [address] [address] Jul, [facility] [address] [address] Jul, [facility] [address] [address] Jul, [facility] [address] [id number] [place] [address] Jul, [facility] [address] [id number] [place] [address] Jul, [facility] [address] [id number] [place] [address] May, [facility] [address] [id number] [place] [address] May, [facility] [address] [id number] [place] [address] May, [facility] [address] [id number] [place] [address] May, [facility] [address] [id number] [place] [address] May, [facility] [address] [id number] [place] [address] May, [facility] [address] [id number] [place] [address] May, [facility] [address] [id number] [place] [address] Mar, [facility] [address] [id number] [place] [address] Mar, [facility] [address] [id number] [place] [address] 08 Sep, 2013 [facility] [address] [id number] [place] [address] 08 Sep, 2013 [facility] [address] [id number] [place] [address] 08 Sep, 2013 [facility] [address] [id number] [place] [address] 08 Sep, 2013 [facility] [address] [id number] [place] [address] 05 Sep, 2013 [facility] [address] [id number] [place] [address] Jan, [facility] [address] [id number] [place] [address] Dec, [facility] [address] [facility] [id number] [place] [address] Dec, [facility] [address] [id number] [place] [address] Dec, [facility] [address] [facility] [id number] [place] [address] Dec, [facility] [address] [facility] [id number] [place] [address] Dec, [facility] [address] [id number] [place] [address] Dec, [facility] [address] [id number] [place] [address] Dec, [facility] [address] [id number] [place] [address] Dec, [facility] [address] [facility] [id number] [place] [address] Dec, [facility] [address] [id number] [place] [address] Dec, [facility] [address] [id number] [place] [address] Nov, [facility] [address] [id number] [place] [address] Nov, [facility] [address] [facility] [id number] [place] [address] September, [facility] [address] [id number] [place] [address] September, [facility] [address] [id number] [place] [address] September, [facility] [address] [id number] [place] [address] September, [facility] [address] [facility] [id number] [place] [address] Aug, [facility] [address] [id number] [place] [address] Aug, [facility] [address] [id number] [place] [address] Aug, [facility] [address] [id number] [place] [address] Aug, [facility] [address] [id number] [place] [address] Aug, [facility] [address] [id number] [place] [address] Aug, [facility] [address] [id number] [place] [address] Aug, [facility] [address] [id number] [place] [address] Aug, [facility] [address] [id number] [place] [address] Aug, [facility] [address] [id number] [place] [address] Aug, [facility] [address] [id number] [place] [address] Aug, [facility] [address] [id number] [place] [address] Aug, [facility] [address] [id number] [place] [address] Jul, [facility] [address] [facility] [id number] [place] [address] Jul, [facility] [address] [id number] [place] [address] Jul, [facility] [address] [id number] [place] [address] Jul, [facility] [address] [id number] [place] [address] Jul, [facility] [address] [id number] [place] [address] Jul, [facility] [address] [id number] [place] [address] Jul, [facility] [address] [id number] [place] [address] Jul, [facility] [address] [id number] [place] [address] Jul, [facility] [address] [id number] [place] [address] Jul, [facility] [address] [id number] [place] [address] Jun, [facility] [address] [id number] [place] [address] Jun, [facility] [address] [id number] [place] [address] Jun, [facility] [address] [id number] [place] [address] Jun, [facility] [address] [id number] [place] [address] Jun, [facility] [address] [id number] [place] [address] Jun, [facility] [address] [id number] [place] [address] Jun, [facility] [address] [id number] [place] [address] Jun, [facility] [address] [id number] [place] [address] Jun, [facility] [address] [id number] [place] [address] Jun, [facility] [address] [id number] [place] [address] Jun, [facility] [facility] [address] [facility] [id number] [place] [address] Jun, [facility] [address] [id number] [place] [address] May, [facility] [address] [id number] [place] [address] May, [facility] [address] [id number] [place] [address] May, [facility] [address] [facility] [id number] [place] [address] May, [facility] [address] [id number] [place] [address] May, [facility] [address] [id number] [place] [address] May, [facility] [address] [id number] [place] [address] May, [facility] [address] [id number] [place] [address] May, [facility] [address] [id number] [place] [address] May, [facility] [address] [id number] [place] [address] May, [facility] [address] [id number] [place] [address] May, [facility] [address] [id number] [place] [address] May, [facility] [address] [id number] [place] [address] May, [facility] [address] [id number] [place] [address] May, [facility] [address] [id number] [place] [address] May, [facility] [address] [id number] [place] [address] Apr, [facility] [address] [id number] [place] [address] Apr, [facility] [address] [id number] [place] [address] Apr, [facility] [address] [id number] [place] [address] Apr, [facility] [address] [id number] [place] [address] Mar, [facility] [address] [id number] [place] [address] Mar, [facility] [id number] [place] [address] Mar, [facility] [address] [id number] [place] [address] Mar, [facility] [id number] [place] [address] Mar, [facility] [address] [id number] [place] [address] Mar, [facility] [id number] [place] [address] Mar, [facility] [address] [id number] [place] [address] Mar, [facility] [address] [id number] [place] [address] Mar, [facility] [address] [id number] [place] [address] Mar, [facility] [id number] [place] [address] Mar, [facility] [address] [id number] [place] [address] Mar, [facility] [address] [id number] [place] [address] Feb, [facility] [address] [id number] [facility] [place] [address] 18 Jan, 2012 [facility] [address] [id number] [facility] [place] [address] 17 Jan, 2012 [facility] [address] [facility] [id number] [place] [address] 06 Jan, 2012 [facility] [address] [id number] [place] [address] 04 Jan, 2012 [facility] [address] [facility] [id number] [facility] [place] [address] 03 Jan, 2012 [facility] [address] [id number] [facility] [place] [address] Dec, [facility] [address] [id number] [place] [address] Dec, [facility] [address] [id number] [place] [address] Dec, [facility] [address] [id number] [place] [address] Dec, [facility] [address] [id number] [place] [address] Dec, [facility] [address] [id number] [place] [address] Dec, [facility] [address] [id number] [place] [address] Dec, [facility] [address] [id number] [place] [address] Dec, [facility] [address] [id number] [place] [address] Nov, [facility] [address] [id number] [place] [address] Nov, [facility] [address] [id number] [place] [address] Nov, [facility] [address] [id number] [place] [address] Nov, [facility] [address] [id number] [place] [address] Nov, [facility] [id number] [place] [address] Nov, [facility] [address] [id number] [place] [address] Oct, [facility] [address] [facility] [id number] Oct, [facility] [address] [facility] [id number] Oct, [facility] [address] [id number] [id number] Oct, [facility] [address] [id number] [id number] Oct, [facility] [id number] [place] [address] Oct, [facility] [id number] [place] [address] Oct, [facility] [address] [id number] [place] [address] Oct, [facility] [id number] [place] [address] Oct, [facility] [address] [id number] [place] [address] Oct, [facility] [address] [id number] [place] [address] Oct, [facility] [address] [id number] [place] [address] September, [facility] [id number] [place] [address] Aug, [facility] [address] [id number] [place] [address] Aug, [facility] [address] [id number] [place] [address] Aug, [facility] [address] [id number] [place] [address] Aug, [facility] [address] [id number] [place] [address] Jul, [facility] [address] [id number] [place] [address] Jul, [facility] [address] [id number] [place] [address] Jul, [facility] [address] [id number] [place] [address] Jul, [facility] [address] [id number] [place] [address] Jul, [facility] [address] [id number] [place] [address] Jun, [facility] [address] [id number] [place] [address] Jun, [facility] [address] [id number] [place] [address] Jun, [facility] [address] [id number] [place] [address] May, [facility] [address] [id number] [place] [address] May, [facility] [address] [id number] [place] [address] May, [facility] [address] [id number] [place] [address] May, [facility] [address] [id number] [place] [address] May, [facility] [address] [id number] [place] [address] May, [facility] [address] [id number] [place] [address] Apr, [facility] [address] [id number] [place] [address] 18 Apr, 2012 [facility] [address] [id number] [place] [address] Apr, [facility] [address] [id number] [place] [address] Apr, [facility] [address] [id number] [place] [address] Apr, [facility] [address] [id number] [place] [address] Apr, [facility] [address] [id number] [place] [address] Apr, [facility] [address] [id number] [place] [address] Mar, [facility] [address] [id number] [place] [address] Mar, [facility] [address] [id number] [place] [address] Mar, [facility] [address] [id number] [place] [address] Mar, [facility] [id number] [place] [address] 18 Jan, 2012 [facility] [address] [id number] [place] [address] Jan, [facility] [id number] [place] [address] Jan, [facility] [address] [id number] [place] [address] Jan, [facility] [address] [facility] [id number] Dec, [facility] [id number] [place] [address] Dec, [facility] [address] [id number] [place] [id number] Dec, [facility] [id number] [place] [address] Dec, [facility] [address] [id number] [place] [address] Dec, [facility] [address] [id number] [place] [address] Dec, [facility] [address] [id number] [place] [address] Nov, [facility] [id number] [place] [address] Nov, [facility] [address] [id number] [place] [address] Nov, IMMUNIZATIONS No Known Immunizations SOCIAL HISTORY [...]
--- OUTSIDE RECORDS SUMMARY | 2019-11-03 19:29 | XMS REPORT ---
Author Author Anca Lucero Doctor Organization [facility] Address Unknown Phone Unavailable Care Team Providers Care Pit Inspector Name Role Phone Migration, Doctor Unavailable Unavailable PROBLEMS Type Condition ICD9-CM Code [id number] Code Onset Dates Condition S tatus SNOMED Code Problem Generalized anxiety disorder F41.1 Apr, 200 8 Active 01074976 Problem Shortness of breath R06.02 23 Apr, 2008 Active 974408466 Problem Dyslipidemia E78.5 12 Oct, 2017 Active 3709 14225 Problem Unspecified hypothyroidism E03.9 Act hernesto 29550005 Problem Nonintractable migraine G43.009 08 Oct, 2015 Act hernesto 250690501 Problem Esophageal reflux K21.9 Active 24 6761619 Problem Unspecified sleep apnea G47.30 Active 03129494 Problem Pre-diabetes R73.03 Active 0910283 02 Problem Morbid obesity with BMI of 50.0-59.9, adult Z68.43 Active 984464345 Problem Migraine with aura and without status migrainosu s, not intractable G43.109 Active 5588887 Problem Osteoarthritis of right knee M17.11 13 May, 201 0 Active 379410906 Problem Morbid obesity E66.01 Active 49125 6002 Problem Pulmonary embolus I26.99 13 Oct, 2011 Active 00252428 Problem Hypothyroidism E03.9 Active 19028 008 Problem Renal stones N20.0 Active 9755323 7 Problem Coronary artery disease I25.10 Active 47689677 Problem Hyperlipidemia LDL goal <70 E78.5 Ac tive 96699915 ALLERGIES No Information ENCOUNTERS Encounter Location Date Diagnosis [facility] [place] [address] [facility] [id number] [place] [address] May, [facility] [address] [place] [address] 17 May, 2019 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 and Dizziness R42 [facility] [address] [facility] [id number] [address] [place] [address] Apr, Non-recurrent acute suppurat hernesto otitis media of both ears without spontaneous rupture of tympanic membranes H66.003 [place] [address] [address] 08 Feb, 2019 Pre-diabetes R73.03 and Hyperlipidemia L DL goal <[address] [address] Feb, [place] [address] [address] Feb, [place] [address] [address] Jan, [place] [address] [address] Jan, [address] [address] Jan, Encounter for Medicare annual wellness e xam Z00.00 ; Hyperlipidemia LDL goal <70 E78.5 ; Coronary artery disease I25.10 ; Hypothyroidism E03.9 ; Osteoarthritis of right knee M17.11 ; Morbid obesity with BMI of 50.0-59.9, adult Z68.43 and Esophageal reflux K21.9 [place] [address] [address] Jan, Dysuria R30.0 and Hematuria, unspecified type R31.9 [place] [address] [address] Jan, Hematuria, unspecified type R31.9 [place] [address] [address] Dec, Hematuria, unspecified type R31.9 [place] [address] [address] Nov, Hematuria, unspecified type R31.[address] [place] [address] Nov, Other microscopic hematuria R31.29 [facility] [place] [address] [address] 24 Nov, 2018 Vaginal gena B37.3 ; Other microscopi c hematuria R31.29 and Morbid obesity E66.01 [facility] [place] [address] [address] Nov, [facility] [place] [address] [address] Nov, [facility] [address] [place] [id number] [place] [address] Nov, UTI symptoms R39.9 and Morbi d obesity E66.01 [place] [address] [address] Nov, [place] [address] [address] September, [place] [address] [address] September, [place] [address] [address] Aug, Right foot pain M79.671 and Morbid obesi ty E66.01 [place] [address] [address] Jul, Right foot pain M79.671 and Morbid obesi ty E66.01 [facility] [address] [place] [address] Jul, Injury of right foot, initia l encounter S99.921A and Morbid obesity E66.01 [place] [address] [address] Jul, Recurrent syncope R55 and Morbid obesity E66.01 [place] [address] [address] Jul, [place] [address] [address] Jun, Hematuria, unspecified type R31.9 and BM I 50.0-59.9, adult Z68.43 [place] [address] [address] 07 Jun, [address] [place] [address] 04 Jun, 2018 residential current use of ant icoagulant Z79.01 [facility] [address] [place] [id number] [place] [address] May, Ankle pain, right M25.571 an d BMI 50.0-59.9, adult Z68.43 [place] [address] [address] May, [place] [address] [address] May, [place] [address] [address] Apr, [place] [address] [address] Apr, [place] [address] [address] Apr, [facility] [place] [address] [place] [id number] [place] [address] Apr, BMI 50.0-59.9, adult Z68.43 and Weakness R53.1 [place] [address] [address] Apr, [facility] [address] [address] Apr, Dysuria R30.0 ; Hematuria R3 1.9 ; Renal lithiasis N20.0 and BMI 50.0-59.9, adult Z68.43 [place] [address] [address] Apr, [place] [address] [address] Apr, [place] [address] [address] Apr, Hypothyroidism E03.9 [place] [address] [address] Apr, Burning with urination R30.0 ; 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43 [place] [address] [address] Dec, Type 2 diabetes mellitus with diabetic n europathic arthropathy, 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 ; Morbid obesity with BMI of 50.0-59.9, adult Z68.43 ; Hypothyroidism E03.9 ; Coronary artery disease I25.10 ; Hyperlipidemia LDL goal <70 E78.5 ; Right lower quadrant abdominal pain R10.31 and Acute cystitis with hematuria N30.01 [facility] [address] [place] [address] Dec, Migraine with aura and witho ut status migrainosus, not intractable G43.109 ; Dehydration symptoms R63.8 and BMI 50.0-59.9, adult Z68.43 [place] [address] [address] Oct, [place] [address] [address] Oct, [place] [address] [address] Oct, [place] [address] [address] September, [place] [address] [address] September, Type 2 diabetes mellitus with diabetic n europathic arthropathy, 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 ; Hyperlipidemia, unspecified hyperlipidemia type E78.5 ; Personal history of pulmonary embolism Z86.711 ; Coronary artery disease I25.10 and Hypothyroidism E03.9 [place] [address] [address] September, [place] [address] [address] Aug, Type 2 diabetes mellitus with diabetic [...] without aura and with status migrainosus G43.011 [place] [address] [address] Aug, [place] [address] [address] Aug, [place] [address] [address] Jul, Renal stones N20.0 [facility] [address] [facility] [id number] [place] [address] Jun, Back pain M54.9 ; Kidney sto radha N20.0 and BMI 50.0-59.9, adult Z68.43 [place] [address] [address] Jun, [place] [address] [address] Apr, [place] [address] [address] Apr, [place] [address] [address] Apr, Right foot pain M79.671 ; Acute gout inv olving toe of right foot, 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 and Arthritis M19.90 [place] [address] [address] 06 Apr, 2017 Gastroesophageal reflux disease without esophagitis K21.9 [place] [address] [address] 16 Mar, 2017 Hypothyroidism, unspecified E03.9 [place] [address] [address] Feb, [place] [address] [address] 25 Jan, 2017 Cervicalgia of fyarjdio-icsslrt-esdre re gion M54.2 and Persistent headaches R51 [place] [address] [address] 20 Jan, [address] [address] 12 Jan, 2017 Intractable migraine without aura and wi th status migrainosus G43.011 ; Cervical spine pain M54.2 ; Hyperlipidemia, unspecified hyperlipidemia type E78.5 ; Hypothyroidism E03.9 and Metabolic syndrome E88.81 [place] [address] [address] Jan, Hypothyroidism, unspecified E03.9 [place] [address] [address] Dec, Hypothyroidism, unspecified E03.9 [place] [address] [address] Dec, Hypothyroidism E03.9 [place] [address] [address] Nov, Laceration of left great toe w/o foreign body w/o damage to nail, initial encounter S91.112A [facility] [address] [facility] [id number] [address] [place] [address] Oct, Pain in left knee M25.562 an d Arthritis M19.90 [place] [address] [address] Oct, Hypothyroidism, unspecified E03.9 and Hy perlipidemia, unspecified hyperlipidemia type E78.[address] [address] 22 Oct, 2016 Gastroesophageal reflux disease without esophagitis K21.9 [place] [address] [address] 14 Oct, 2016 Metabolic syndrome E88.81 ; Personal his tory of pulmonary embolism Z86.711 ; Other specified hypothyroidism E03.8 and Hyperlipidemia, unspecified hyperlipidemia type E78.5 [place] [address] [address] 13 Oct, 2017 Personal history of pulmonary embolism Z 86.711 ; Dysuria R30.0 ; Metabolic syndrome E88.81 ; Other specified hypothyroidism E03.8 ; Hyperlipidemia, unspecified hyperlipidemia type E78.5 and Morbid obesity with BMI of 50.0-59.9, adult Z68.43 [place] [id number] [place] [address] September, [facility] [address] [address] September, Wrist pain, left M25.532 and Acute pain of left knee M25.562 [place] [address] [address] Jul, Dysuria R30.[address] [address] Jul, Dysuria R30.[address] [address] Jul, Left lower quadrant pain R10.[address] [address] Jul, [address] [address] Jul, Coronary artery disease I25.10 ; Family history of diabetes mellitus Z83.3 ; Morbid obesity with BMI of 50.0-59.9, adult Z68.43 ; Metabolic syndrome E88.81 ; Personal history of pulmonary embolism Z86.711 ; Gastroesophageal reflux disease without esophagitis K21.9 ; Hypothyroidism, unspecified E03.9 ; Hyperlipidemia, unspecified hyperlipidemia type E78.5 and Left lower quadrant pain R10.32 [facility] [place] [id number] [place] [address] Jul, [facility] [place] [id number] [place] [address] 08 Jul, 2016 Morbid obesity with BMI of 5 0.0-59.9, adult Z68.43 [facility] [place] [id number] [address] [place] [address] Jul, Generalized abdominal pain R 10.84 [facility] [place] [id number] [place] [address] Jun, Muscle strain of right upper back, initial encounter S29.012A [facility] [address] [place] [id number] [place] [address] 16 May, 2016 Foreign body (FB) in soft ti ssue M79.5 [place] [address] [address] Mar, Hypothyroidism, unspecified E03.9 and Ar thritis M19.90 [place] [address] [address] 13 Feb, 2016 Coronary artery disease I25.10 ; Morbid obesity with BMI of 50.0-59.9, adult Z68.43 ; Metabolic syndrome E88.81 ; Gastroesophageal reflux disease without esophagitis K21.9 ; Hypothyroidism, unspecified E03.9 ; Personal history of pulmonary embolism Z86.711 and Hyperlipidemia, unspecified hyperlipidemia type E78.5 [place] [address] [address] Feb, [facility] [place] [address] [place] [id number] [place] [address] 12 Jan, 2016 Acute right-sided thoracic b ack pain M54.6 [place] [address] [address] Jan, Acute pain of left knee M25.562 [place] [address] [address] 18 Dec, 2015 Dysuria R30.0 ; Metabolic syndrome E88.8 1 ; Acute pain of left knee M25.562 ; Acute cystitis with hematuria N30.01 and Acute left eye pain H57.12 [place] [address] [address] Dec, [place] [address] [address] Dec, [place] [address] [address] Dec, Hypothyroidism, unspecified E03.9 [place] [address] [address] Dec, [place] [address] [address] Nov, Peripheral edema R60.9 and Acute pain of left knee M25.562 [facility] [place] [address] [place] [id number] [place] [address] September, [place] [address] [address] September, Metabolic syndrome E88.81 and Allergy, s ubsequent encounter T78.40XD [facility] [place] [address] [address] September, Muscle strain T14.8 [place] [address] [address] Aug, Chest pressure R07.89 ; Metabolic syndro me E88.81 ; Morbid obesity with BMI of 50.0-59.9, adult Z68.43 ; Esophageal reflux 530.81 and Shortness of breath R06.02 [place] [address] [address] Aug, [place] [address] [address] Aug, [place] [address] [address] Aug, Hypothyroidism, unspecified E03.9 [place] [address] [address] Aug, Routine health maintenance Z00.00 [facility] [place] [address] [place] [id number] [place] [address] Aug, [place] [address] [address] Jul, Routine health maintenance Z00.00 ; Fami ly history of diabetes mellitus Z83.3 ; Family history of cancer Z80.9 and Morbid obesity with BMI of 50.0-59.9, adult Z68.43 [facility] [address] [place] [id number] [address] 28 Jul, 2015 Allergic rhinitis J30.9 and Postnasal drip R09.82 [place] [address] [address] 18 Jul, 2015 Influenza J11.1 [facility] [address] [place] [id number] [place] [address] 08 Jul, 2015 Dysuria R30.0 [place] [address] [address] Apr, [place] [address] [address] Mar, Acute upper respiratory infection, unspe cified J06.9 and Hypothyroidism E03.9 [place] [address] [address] Mar, [place] [address] [address] Feb, Coronary artery disease I25.10 [place] [address] [address] Feb, Left foot pain M79.672 [place] [address] [address] Jan, UTI (urinary tract infection) 599.0 [place] [address] [address] Jan, Urinary tract infection, site not specif ied 599.0 [place] [address] [address] Jan, Urinary tract infection, site not specif ied 599.0 [place] [address] [address] Jan, [place] [address] [address] Dec, Headache 784.0 [facility] [place] [address] [place] [id number] [place] [address] Dec, Urinary tract infection, site not specif ied 599.0 [facility] [place] [address] [place] [address] [place] [address] Dec, Urinary tract infection, site not specif ied 599.0 [facility] [place] [address] [address] Dec, Urinary tract infection, site not specif ied 599.0 [place] [address] [address] Nov, Unspecified sleep apnea 780.57 ; Encount er for long-term (current) use of anticoagulants V58.61 ; Routine general medical examination at health care facility V70.0 and Arthritis of both knees 716.96 [place] [address] [address] September, Cat bite of hand 882.0 and Rectal bleedi ng 569.3 [place] [address] [address] Aug, [facility] [place] [address] [address] Aug, [facility] [place] [address] [address] Jul, [facility] [place] [address] [address] Jul, [facility] [place] [address] [address] Jul, [facility] [place] [address] [address] Jul, [facility] [place] [address] [address] Jul, [facility] [place] [address] [address] Jul, [facility] [address] [id number] [place] [address] Jul, [facility] [address] [id number] [place] [address] Jul, [facility] [address] [id number] [place] [address] May, [facility] [address] [id number] [place] [address] May, [facility] [address] [id number] [place] [address] May, [facility] [address] [id number] [place] [address] May, [facility] [address] [id number] [place] [address] May, [facility] [address] [id number] [place] [address] May, [facility] [address] [id number] [place] [address] May, [facility] [address] [id number] [place] [address] Mar, [facility] [address] [id number] [place] [address] Mar, [facility] [address] [id number] [place] [address] 08 Sep, 2013 [facility] [address] [id number] [place] [address] 08 Sep, 2013 [facility] [address] [id number] [place] [address] 08 Sep, 2013 [facility] [address] [id number] [place] [address] 08 Sep, 2013 [facility] [address] [id number] [place] [address] 05 Sep, 2013 [facility] [address] [id number] [place] [address] Jan, [facility] [address] [id number] [place] [address] Dec, [facility] [address] [facility] [id number] [place] [address] Dec, [facility] [address] [id number] [place] [address] Dec, [facility] [address] [facility] [id number] [place] [address] Dec, [facility] [address] [facility] [id number] [place] [address] Dec, [facility] [address] [id number] [place] [address] Dec, [facility] [address] [id number] [place] [address] Dec, [facility] [address] [id number] [place] [address] Dec, [facility] [address] [facility] [id number] [place] [address] Dec, [facility] [address] [id number] [place] [address] Dec, [facility] [address] [id number] [place] [address] Nov, [facility] [address] [id number] [place] [address] Nov, [facility] [address] [facility] [id number] [place] [address] September, [facility] [address] [id number] [place] [address] September, [facility] [address] [id number] [place] [address] September, [facility] [address] [id number] [place] [address] September, [facility] [address] [facility] [id number] [place] [address] Aug, [facility] [address] [id number] [place] [address] Aug, [facility] [address] [id number] [place] [address] Aug, [facility] [address] [id number] [place] [address] Aug, [facility] [address] [id number] [place] [address] Aug, [facility] [address] [id number] [place] [address] Aug, [facility] [address] [id number] [place] [address] Aug, [facility] [address] [id number] [place] [address] Aug, [facility] [address] [id number] [place] [address] Aug, [facility] [address] [id number] [place] [address] Aug, [facility] [address] [id number] [place] [address] Aug, [facility] [address] [id number] [place] [address] Aug, [facility] [address] [id number] [place] [address] Jul, [facility] [address] [facility] [id number] [place] [address] Jul, [facility] [address] [id number] [place] [address] Jul, [facility] [address] [id number] [place] [address] Jul, [facility] [address] [id number] [place] [address] Jul, [facility] [address] [id number] [place] [address] Jul, [facility] [address] [id number] [place] [address] Jul, [facility] [address] [id number] [place] [address] Jul, [facility] [address] [id number] [place] [address] Jul, [facility] [address] [id number] [place] [address] Jul, [facility] [address] [id number] [place] [address] Jun, [facility] [address] [id number] [place] [address] Jun, [facility] [address] [id number] [place] [address] Jun, [facility] [address] [id number] [place] [address] Jun, [facility] [address] [id number] [place] [address] Jun, [facility] [address] [id number] [place] [address] Jun, [facility] [address] [id number] [place] [address] Jun, [facility] [address] [id number] [place] [address] Jun, [facility] [address] [id number] [place] [address] Jun, [facility] [address] [id number] [place] [address] Jun, [facility] [address] [id number] [place] [address] Jun, [facility] [address] [facility] [id number] [place] [address] Jun, [facility] [address] [id number] [place] [address] May, [facility] [address] [id number] [place] [address] May, [facility] [address] [id number] [place] [address] May, [facility] [address] [facility] [id number] [place] [address] May, [facility] [address] [id number] [place] [address] May, [facility] [address] [id number] [place] [address] May, [facility] [address] [id number] [place] [address] May, [facility] [address] [id number] [place] [address] May, [facility] [address] [id number] [place] [address] May, [facility] [address] [id number] [place] [address] May, [facility] [address] [id number] [place] [address] May, [facility] [address] [id number] [place] [address] May, [facility] [address] [id number] [place] [address] May, [facility] [address] [id number] [place] [address] May, [facility] [address] [id number] [place] [address] May, [facility] [address] [id number] [place] [address] Apr, [facility] [address] [id number] [place] [address] Apr, [facility] [address] [id number] [place] [address] Apr, [facility] [address] [id number] [place] [address] Apr, [facility] [address] [id number] [place] [address] Mar, [facility] [address] [id number] [place] [address] Mar, [facility] [id number] [place] [address] Mar, [facility] [address] [id number] [place] [address] Mar, [facility] [id number] [place] [address] Mar, [facility] [address] [id number] [place] [address] Mar, [facility] [id number] [place] [address] Mar, [facility] [address] [id number] [place] [address] Mar, [facility] [address] [id number] [place] [address] Mar, [facility] [address] [id number] [place] [address] Mar, [facility] [id number] [place] [address] Mar, [facility] [address] [id number] [place] [address] Mar, [facility] [address] [id number] [place] [address] Feb, [facility] [address] [id number] [facility] [place] [address] 18 Jan, 2012 [facility] [address] [id number] [facility] [place] [address] 17 Jan, 2012 [facility] [address] [facility] [id number] [place] [address] 06 Jan, 2012 [facility] [address] [id number] [place] [address] 04 Jan, 2012 [facility] [address] [facility] [id number] [facility] [place] [address] 03 Jan, 2012 [facility] [address] [id number] [facility] [place] [address] Dec, [facility] [address] [id number] [place] [address] Dec, [facility] [address] [id number] [place] [address] Dec, [facility] [address] [id number] [place] [address] Dec, [facility] [address] [id number] [place] [address] Dec, [facility] [address] [id number] [place] [address] Dec, [facility] [address] [id number] [place] [address] Dec, [facility] [address] [id number] [place] [address] Dec, [facility] [address] [id number] [place] [address] Nov, [facility] [address] [id number] [place] [address] Nov, [facility] [address] [id number] [place] [address] Nov, [facility] [address] [id number] [place] [address] Nov, [facility] [address] [id number] [place] [address] Nov, [facility] [id number] [place] [address] Nov, [facility] [address] [id number] [place] [address] Oct, [facility] [address] [id number] [id number] Oct, [facility] [address] [id number] [id number] Oct, [facility] [address] [facility] [id number] Oct, [facility] [id number] [id number] Oct, [facility] [id number] [place] [address] Oct, [facility] [id number] [place] [address] Oct, [facility] [address] [id number] [place] [address] Oct, [facility] [id number] [place] [address] Oct, [facility] [address] [id number] [place] [address] Oct, [facility] [address] [id number] [place] [address] Oct, [facility] [address] [id number] [place] [address] September, [facility] [id number] [place] [address] Aug, [facility] [address] [id number] [place] [address] Aug, [facility] [address] [id number] [place] [address] Aug, [facility] [address] [id number] [place] [address] Aug, [facility] [address] [id number] [place] [address] Jul, [facility] [address] [id number] [place] [address] Jul, [facility] [address] [id number] [place] [address] Jul, [facility] [address] [id number] [place] [address] Jul, [facility] [address] [id number] [place] [address] Jul, [facility] [address] [id number] [place] [address] Jun, [facility] [address] [id number] [place] [address] Jun, [facility] [address] [id number] [place] [address] Jun, [facility] [address] [id number] [place] [address] May, [facility] [address] [id number] [place] [address] May, [facility] [address] [id number] [place] [address] May, [facility] [address] [id number] [place] [address] May, [facility] [address] [id number] [place] [address] May, [facility] [address] [id number] [place] [address] May, [facility] [address] [id number] [place] [address] Apr, [facility] [address] [id number] [place] [address] 18 Apr, 2012 [facility] [address] [id number] [place] [address] Apr, [facility] [address] [id number] [place] [address] Apr, [facility] [address] [id number] [place] [address] Apr, [facility] [address] [id number] [place] [address] Apr, [facility] [address] [id number] [place] [address] Apr, [facility] [address] [id number] [place] [address] Mar, [facility] [address] [id number] [place] [address] Mar, [facility] [address] [id number] [place] [address] Mar, [facility] [address] [id number] [place] [address] Mar, [facility] [id number] [place] [address] 18 Jan, 2012 [facility] [address] [id number] [place] [address] Jan, [facility] [id number] [place] [address] Jan, [facility] [address] [id number] [place] [address] Jan, [facility] [address] [id number] [id number] Dec, [facility] [id number] [place] [address] Dec, [facility] [address] [id number] [place] [id number] Dec, [facility] [id number] [place] [address] Dec, [facility] [place] [address] [id number] [place] [address] Dec, [facility] [place] [address] [id number] [place] [address] Dec, [facility] [place] [address] [id number] [place] [address] Nov, [facility] [place] [address] [id number] [place] [address] Nov, [facility] [place] [address] [id number] [place] [address] Nov, IMMUNIZATIONS No Known Immunizations SOCIAL HISTORY Never Assessed REASON FOR VISIT PLAN OF CARE VITAL SIGNS MEDICATIONS Unknown Medications RESULTS No Results PROCEDURES Procedure Date Ordered Result Body Site PROTHROMBIN TIME September 02, 2013 INSTRUCTIONS MEDICATIONS ADMINISTERED No Known Medications [...]
--- OUTSIDE RECORDS SUMMARY | 2019-11-03 19:29 | XMS REPORT ---
Author Author Anca Lucero Doctor Organization [facility] Address Unknown Phone Unavailable Care Team Providers Care [facility] Specialists Name Role Phone Migration, Doctor Unavailable Unavailable PROBLEMS Type Condition ICD9-CM Code ZVF27-CC Code Onset Dates Condition S tatus SNOMED Code Problem Esophageal reflux K21.9 Active 24 1935687 Problem Dyslipidemia E78.5 12 Oct, 2017 Active 3709 96731 Problem Unspecified hypothyroidism E03.9 Act hernesto 60381908 Problem Generalized anxiety disorder F41.1 Apr, 200 8 Active 55199693 Problem Shortness of breath R06.02 Apr, Active 330829014 Problem Pulmonary embolus I26.99 13 Oct, 2011 Active 64731417 Problem Nonintractable migraine G43.009 08 Oct, 2015 Act hernesto 621405591 Problem Pre-diabetes R73.03 Active 0594020 02 Problem Morbid obesity with BMI of 50.0-59.9, adult Z68.43 Active 552047553 Problem Hypothyroidism E03.9 Active 85074 008 Problem Morbid obesity E66.01 Active 55565 6002 Problem Unspecified sleep apnea G47.30 Active 53628554 Problem Personal history of pulmonary embolism Z86.711 Active 993842518 Problem Osteoarthritis of right knee M17.11 13 May, 201 0 Active 270563821 Problem Renal stones N20.0 Active 3421074 7 Problem Coronary artery disease I25.10 Active 86821930 Problem Hyperlipidemia LDL goal <70 E78.5 Ac tive 65355752 Problem Migraine with aura and without status migrainosu s, not intractable G43.109 Active [id number] ALLERGIES No Information ENCOUNTERS Encounter Location Date Diagnosis [facility] [address] [facility] [place] [address] 07 Jun, 2019 Personal history of pulmonary embolism Z 86.711 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 and Dizziness R42 [facility] [address] [facility] [id number] [address] [place] [address] Apr, Non-recurrent acute suppurat hernesto otitis media of both ears without spontaneous rupture of tympanic membranes H66.003 [place] [address] [address] 08 Feb, 2019 Pre-diabetes R73.03 and Hyperlipidemia L DL goal <70 E78.5 [place] [address] [place] [id number] [place] [address] Feb, [place] [address] [address] Feb, [place] [address] [place] [id number] [place] [address] Jan, [place] [address] [address] Jan, [place] [address] [address] 18 Jan, 2019 Encounter for Medicare annual wellness e xam Z00.00 ; Hyperlipidemia LDL goal <70 E78.5 ; Coronary artery disease I25.10 ; Hypothyroidism E03.9 ; Osteoarthritis of right knee M17.11 ; Morbid obesity with BMI of 50.0-59.9, adult Z68.43 and Esophageal reflux K21.9 [place] [address] [address] Jan, Dysuria R30.0 and Hematuria, unspecified type R31.9 [place] [address] [place] [id number] [place] [address] Jan, Hematuria, unspecified type R31.9 [place] [address] [place] [address] [place] [address] Dec, Hematuria, unspecified type R31.9 [facility] [address] [address] Nov, Hematuria, unspecified type R31.[address] [place] [address] Nov, Other microscopic hematuria R31.29 [place] [address] [address] Nov, Vaginal gena B37.3 ; Other microscopi c hematuria R31.29 and Morbid obesity E66.01 [place] [address] [address] Nov, [place] [address] [address] Nov, [facility] [address] [place] [id number] [address] [place] [address] Nov, UTI symptoms R39.9 and Morbi d obesity E66.01 [place] [address] [address] Nov, [place] [address] [address] September, [place] [address] [address] September, [place] [address] [address] Aug, Right foot pain M79.671 and Morbid obesi ty E66.01 [place] [address] [address] Jul, Right foot pain M79.671 and Morbid obesi ty E66.01 [facility] [address] [facility] [id number] [address] [place] [address] Jul, Injury of right foot, initia l encounter S99.921A and Morbid obesity E66.01 [place] [address] [place] [id number] [place] [address] Jul, Recurrent syncope R55 and Morbid obesity E66.01 [place] [address] [place] [id number] [place] [address] Jul, [place] [address] [address] Jun, Hematuria, unspecified type R31.9 and BM I 50.0-59.9, adult Z68.43 [place] [address] [place] [id number] [place] [address] 07 Jun, 2018 [place] [address] [place] [address] 04 Jun, 2018 longterm current use of ant icoagulant Z79.[address] [facility] [address] [facility] [id number] [address] [place] [address] May, Ankle pain, right M25.571 an d BMI 50.0-59.9, adult Z68.43 [place] [address] [address] May, [place] [address] [address] May, [place] [address] [address] Apr, [place] [address] [address] Apr, [place] [address] [address] Apr, [facility] [address] [facility] [id number] [address] [place] [address] Apr, BMI 50.0-59.9, adult Z68.43 and Weakness R53.1 [place] [address] [address] Apr, [facility] [place] [address] [address] Apr, Dysuria R30.0 ; Hematuria R3 1.9 ; Renal lithiasis N20.0 and BMI 50.0-59.9, adult Z68.43 [place] [address] [address] Apr, [place] [address] [address] Apr, [place] [address] [address] Apr, Hypothyroidism E03.9 [place] [address] [address] Apr, Burning with urination R30.0 ; 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, 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 ; Acute bilateral low back pain without sciatica M54.5 and BMI 50.0-59.9, adult Z68.43 [place] [address] [address] Mar, Hypothyroidism E03.9 [place] [address] [address] Feb, [facility] [place] [address] [address] 15 Jan, 2018 [place] [address] [address] 07 Jan, 2018 Acute non-recurrent maxillary sinusitis J01.00 and BMI 50.0-59.9, adult Z68.43 [facility] [address] [address] 04 Jan, 2018 Congestion of upper respirat ory tract J98.8 and BMI 50.0-59.9, adult Z68.43 [place] [address] [address] Dec, Type 2 diabetes mellitus with diabetic n europathic arthropathy, 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 ; Morbid obesity with BMI of 50.0-59.9, adult Z68.43 ; Hypothyroidism E03.9 ; Coronary artery disease I25.10 ; Hyperlipidemia LDL goal <70 E78.5 ; Right lower quadrant abdominal pain R10.31 and Acute cystitis with hematuria N30.01 [facility] [address] [facility] [id number] [address] [place] [address] Dec, Migraine with aura and witho ut status migrainosus, not intractable G43.109 ; Dehydration symptoms R63.8 and BMI 50.0-59.9, adult Z68.43 [place] [address] [address] Oct, [place] [address] [address] Oct, [place] [address] [address] Oct, [facility] [address] [address] September, [place] [address] [address] September, Type 2 diabetes mellitus with diabetic n europathic arthropathy, 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 ; Hyperlipidemia, unspecified hyperlipidemia type E78.5 ; Personal history of pulmonary embolism Z86.711 ; Coronary artery disease I25.10 and Hypothyroidism E03.9 [facility] [address] [address] September, [place] [address] [address] Aug, Type 2 diabetes mellitus with diabetic [...] without aura and with status migrainosus G43.011 [place] [address] [address] Aug, [place] [address] [address] Aug, [place] [address] [address] Jul, Renal stones N20.0 [facility] [address] [facility] [id number] [address] [place] [address] Jun, Back pain M54.9 ; Kidney sto radha N20.0 and BMI 50.0-59.9, adult Z68.43 [place] [address] [address] Jun, [place] [address] [address] Apr, [place] [address] [address] Apr, [place] [address] [address] Apr, Right foot pain M79.671 ; Acute gout inv olving toe of right foot, 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 and Arthritis M19.90 [place] [address] [address] 06 Apr, 2017 Gastroesophageal reflux disease without esophagitis K21.9 [place] [address] [address] 16 Mar, 2017 Hypothyroidism, unspecified E03.9 [place] [address] [address] 11 Feb, 2017 [place] [address] [address] 25 Jan, 2017 Cervicalgia of ypaqtspz-mfvkxrj-dwfij re gion M54.2 and Persistent headaches R51 [place] [address] [address] 20 Jan, 2017 [place] [address] [address] 12 Jan, 2017 Intractable migraine without aura and wi th status migrainosus G43.011 ; Cervical spine pain M54.2 ; Hyperlipidemia, unspecified hyperlipidemia type E78.5 ; Hypothyroidism E03.9 and Metabolic syndrome E88.81 [place] [address] [address] Jan, Hypothyroidism, unspecified E03.9 [place] [address] [address] Dec, Hypothyroidism, unspecified E03.9 [place] [address] [address] Dec, Hypothyroidism E03.9 [place] [address] [address] Nov, Laceration of left great toe w/o foreign body w/o damage to nail, initial encounter S91.112A [facility] [address] [facility] [id number] [address] [place] [address] Oct, Pain in left knee M25.562 an d Arthritis M19.90 [place] [address] [address] Oct, Hypothyroidism, unspecified E03.9 and Hy perlipidemia, unspecified hyperlipidemia type E78.5 [place] [address] [address] Oct, Gastroesophageal reflux disease without esophagitis K21.9 [place] [address] [address] 14 Oct, 2016 Metabolic syndrome E88.81 ; Personal his tory of pulmonary embolism Z86.711 ; Other specified hypothyroidism E03.8 and Hyperlipidemia, unspecified hyperlipidemia type E78.[address] [address] 13 Oct, 2017 Personal history of pulmonary embolism Z 86.711 ; Dysuria R30.0 ; Metabolic syndrome E88.81 ; Other specified hypothyroidism E03.8 ; Hyperlipidemia, unspecified hyperlipidemia type E78.5 and Morbid obesity with BMI of 50.0-59.9, adult Z68.[address] [address] September, [facility] [address] [address] September, Wrist pain, left M25.532 and Acute pain of left knee M25.[address] [address] Jul, Dysuria R30.[address] [address] Jul, Dysuria R30.[address] [address] Jul, Left lower quadrant pain R10.[address] [address] Jul, [address] [address] Jul, Coronary artery disease I25.10 ; Family history of diabetes mellitus Z83.3 ; Morbid obesity with BMI of 50.0-59.9, adult Z68.43 ; Metabolic syndrome E88.81 ; Personal history of pulmonary embolism Z86.711 ; Gastroesophageal reflux disease without esophagitis K21.9 ; Hypothyroidism, unspecified E03.9 ; Hyperlipidemia, unspecified hyperlipidemia type E78.5 and Left lower quadrant pain R10.32 [facility] [place] [id number] [address] [place] [address] Jul, [facility] [address] [address] Jul, Morbid obesity with BMI of 5 0.0-59.9, adult Z68.43 [facility] [address] [address] Jul, Generalized abdominal pain R 10.84 [facility] [address] [address] 02 Jun, 2016 Muscle strain of right upper back, initial encounter S29.012A [facility] [address] [address] May, Foreign body (FB) in soft ti ssue M79.[address] [address] Mar, Hypothyroidism, unspecified E03.9 and Ar thritis M19.[address] [address] Feb, Coronary artery disease I25.10 ; Morbid obesity with BMI of 50.0-59.9, adult Z68.43 ; Metabolic syndrome E88.81 ; Gastroesophageal reflux disease without esophagitis K21.9 ; Hypothyroidism, unspecified E03.9 ; Personal history of pulmonary embolism Z86.711 and Hyperlipidemia, unspecified hyperlipidemia type E78.[address] [address] Feb, [facility] [address] [address] Jan, Acute right-sided thoracic b ack pain M54.[address] [address] Jan, Acute pain of left knee M25.[address] [address] Dec, Dysuria R30.0 ; Metabolic syndrome E88.8 1 ; Acute pain of left knee M25.562 ; Acute cystitis with hematuria N30.01 and Acute left eye pain H57.[address] [address] Dec, [place] [address] [address] Dec, [place] [address] [address] Dec, Hypothyroidism, unspecified E03.9 [place] [address] [address] Dec, [place] [address] [address] Nov, Peripheral edema R60.9 and Acute pain of left knee M25.562 [facility] [place] [address] [place] [id number] [place] [address] September, [place] [address] [address] September, Metabolic syndrome E88.81 and Allergy, s ubsequent encounter T78.40XD [facility] [place] [address] [facility] [id number] [address] [place] [address] September, Muscle strain T14.8 [place] [address] [address] Aug, Chest pressure R07.89 ; Metabolic syndro me E88.81 ; Morbid obesity with BMI of 50.0-59.9, adult Z68.43 ; Esophageal reflux 530.81 and Shortness of breath R06.02 [place] [address] [address] Aug, [place] [address] [address] Aug, [place] [address] [address] Aug, Hypothyroidism, unspecified E03.9 [place] [address] [address] Aug, Routine health maintenance Z00.00 [facility] [place] [address] [address] [facility] [id number] [address] [place] [address] Aug, [place] [address] [address] 31 Jul, 2015 Routine health maintenance Z00.00 ; Fami ly history of diabetes mellitus Z83.3 ; Family history of cancer Z80.9 and Morbid obesity with BMI of 50.0-59.9, adult Z68.43 [facility] [place] [address] [place] [id number] [address] [place] [address] 28 Jul, 2015 Allergic rhinitis J30.9 and Postnasal drip R09.[address] [address] 18 Jul, 2015 Influenza J11.1 [facility] [address] [address] Jul, Dysuria R30.0 [place] [address] [address] Apr, [address] [address] Mar, Acute upper respiratory infection, unspe cified J06.9 and Hypothyroidism E03.[address] [address] Mar, [place] [address] [address] Feb, Coronary artery disease I25.10 [place] [address] [address] Feb, Left foot pain M79.[address] [address] Jan, UTI (urinary tract infection) 599.[address] [address] Jan, Urinary tract infection, site not specif ied 599.0 [facility] [address] [place] [id number] [place] [address] Jan, Urinary tract infection, site not specif ied 599.0 [facility] [address] [address] Jan, [facility] [address] [address] Dec, Headache 784.0 [facility] [address] [address] Dec, Urinary tract infection, site not specif ied 599.0 [place] [address] [address] Dec, Urinary tract infection, site not specif ied 599.0 [place] [address] [address] Dec, Urinary tract infection, site not specif ied 599.0 [place] [address] [address] Nov, Unspecified sleep apnea 780.57 ; Encount er for long-term (current) use of anticoagulants V58.61 ; Routine general medical examination at health care facility V70.0 and Arthritis of both knees 716.96 [place] [address] [address] September, Cat bite of hand 882.0 and Rectal bleedi ng 569.3 [facility] [address] [place] [id number] [place] [address] Aug, [facility] [address] [address] Aug, [facility] [address] [address] Jul, [facility] [address] [address] Jul, [facility] [address] [place] [address] Jul, [facility] [address] [id number] [place] [address] Jul, [facility] [address] [id number] [place] [address] Jul, [facility] [address] [id number] [place] [address] Jul, [facility] [address] [id number] [place] [address] Jul, [facility] [address] [id number] [place] [address] Jul, [facility] [address] [id number] [place] [address] May, [facility] [address] [id number] [place] [address] May, [facility] [address] [id number] [place] [address] May, [facility] [address] [id number] [place] [address] May, [facility] [address] [id number] [place] [address] May, [facility] [address] [id number] [place] [address] May, [facility] [address] [id number] [place] [address] May, [facility] [address] [id number] [place] [address] Mar, [facility] [address] [id number] [place] [address] Mar, [facility] [address] [id number] [place] [address] Jan, [facility] [address] [id number] [place] [address] Jan, [facility] [address] [id number] [place] [address] 08 Jan, 2013 [facility] [address] [facility] [id number] [place] [address] Jan, 2013 [facility] [address] [facility] [id number] [place] [address] Jan, 2013 [facility] [address] [id number] [place] [address] Jan, 2013 [facility] [address] [facility] [id number] [place] [address] Dec, [facility] [address] [id number] [place] [address] Dec, [facility] [address] [id number] [place] [address] Dec, [facility] [address] [id number] [place] [address] Dec, [facility] [address] [id number] [place] [address] Dec, [facility] [address] [id number] [place] [address] Dec, [facility] [address] [id number] [place] [address] Dec, [facility] [address] [id number] [place] [address] Dec, [facility] [address] [id number] [place] [address] Dec, [facility] [address] [facility] [id number] [place] [address] Dec, [facility] [address] [id number] [place] [address] Nov, [facility] [address] [id number] [place] [address] Nov, [facility] [address] [id number] [place] [address] September, [facility] [address] [facility] [id number] [place] [address] September, [facility] [address] [facility] [id number] [facility] [place] [address] September, [facility] [address] [id number] [place] [address] September, [facility] [address] [id number] [place] [address] Aug, [facility] [address] [facility] [id number] [place] [address] Aug, [facility] [place] [facility] [address] [id number] [place] [address] Aug, [facility] [place] [facility] [address] [id number] [place] [address] Aug, [facility] [place] [facility] [address] [id number] [place] [address] Aug, [facility] [place] [facility] [address] [id number] [place] [address] Aug, [facility] [place] [facility] [address] [id number] [place] [address] Aug, [facility] [place] [facility] [address] [id number] [place] [address] Aug, [facility] [place] [facility] [address] [id number] [place] [address] Aug, [facility] [place] [facility] [address] [facility] [id number] [place] [address] Aug, [facility] [place] [facility] [address] [id number] [place] [address] Aug, [facility] [place] [facility] [address] [id number] [place] [address] Aug, [facility] [place] [facility] [address] [id number] [place] [address] Jul, [facility] [place] [facility] [address] [id number] [place] [address] Jul, [facility] [place] [facility] [address] [facility] [id number] [place] [address] Jul, [facility] [place] [facility] [address] [id number] [place] [address] Jul, [facility] [place] [facility] [address] [id number] [place] [address] Jul, [facility] [place] [facility] [address] [id number] [place] [address] Jul, [facility] [place] [facility] [address] [id number] [place] [address] Jul, [facility] [place] [facility] [address] [id number] [place] [address] Jul, [facility] [place] [facility] [address] [id number] [place] [address] Jul, [facility] [place] [facility] [address] [id number] [place] [address] Jul, [facility] [place] [facility] [address] [id number] [place] [address] Jun, [facility] [place] [facility] [address] [id number] [place] [address] Jun, [facility] [place] [facility] [address] [id number] [place] [address] Jun, [facility] [place] [facility] [address] [id number] [place] [address] Jun, [facility] [place] [facility] [address] [id number] [place] [address] Jun, [facility] [place] [facility] [address] [id number] [place] [address] Jun, [facility] [place] [facility] [address] [id number] [place] [address] Jun, [facility] [place] [facility] [address] [id number] [place] [address] Jun, [facility] [place] [facility] [address] [facility] [id number] [place] [address] Jun, [facility] [place] [facility] [address] [facility] [id number] [facility] [place] [place] [address] Jun, [facility] [place] [facility] [address] [facility] [id number] [place] [address] Jun, [facility] [place] [facility] [address] [facility] [id number] [place] [address] Jun, [facility] [place] [facility] [address] [facility] [id number] [place] [address] May, [facility] [facility] [address] [id number] [place] [address] May, [facility] [address] [id number] [place] [address] May, [facility] [address] [id number] [place] [address] May, [facility] [address] [id number] [place] [address] May, [facility] [address] [id number] [place] [address] May, [facility] [address] [id number] [place] [address] May, [facility] [address] [id number] [place] [address] May, [facility] [address] [id number] [place] [address] May, [facility] [address] [id number] [place] [address] May, [facility] [address] [id number] [place] [address] May, [facility] [address] [id number] [place] [address] May, [facility] [address] [id number] [place] [address] May, [facility] [address] [id number] [place] [address] May, [facility] [address] [id number] [place] [address] May, [facility] [address] [id number] [place] [address] Apr, [facility] [address] [id number] [place] [address] Apr, [facility] [address] [id number] [place] [address] Apr, [facility] [address] [id number] [place] [address] Apr, [facility] [address] [id number] [place] [address] Mar, [facility] [address] [id number] [place] [address] Mar, [facility] [address] [id number] [place] [address] Mar, [facility] [address] [id number] [place] [address] Mar, [facility] [address] [id number] [place] [address] Mar, [facility] [address] [id number] [place] [address] Mar, [facility] [address] [id number] [place] [address] Mar, [facility] [id number] [place] [address] Mar, [facility] [address] [id number] [place] [address] Mar, [facility] [address] [id number] [place] [address] Mar, [facility] [address] [id number] [place] [address] Mar, 2012 [facility] [address] [id number] [place] [address] Mar, [facility] [address] [id number] [place] [address] Feb, [facility] [address] [id number] [place] [address] 18 Jan, 2013 [facility] [address] [facility] [id number] [place] [address] 17 Jan, 2012 [facility] [address] [id number] [place] [address] Jan, [facility] [address] [id number] [place] [address] Jan, [facility] [address] [id number] [place] [address] Jan, [facility] [address] [id number] [place] [address] Dec, [facility] [address] [id number] [place] [address] Dec, [facility] [address] [id number] [place] [address] Dec, [facility] [address] [id number] [place] [address] 16 Dec, 2012 [facility] [address] [id number] [place] [address] Dec, [facility] [address] [id number] [place] [address] Dec, [facility] [address] [id number] [place] [address] Dec, [facility] [address] [id number] [place] [address] Dec, [facility] [address] [id number] [place] [address] Nov, [facility] [address] [id number] [place] [address] Nov, [facility] [address] [id number] [place] [address] Nov, [facility] [address] [id number] [place] [address] Nov, [facility] [address] [id number] [place] [address] Nov, [facility] [address] [id number] [place] [address] Nov, [facility] [address] [id number] [place] [address] Oct, [facility] [address] [id number] [id number] Oct, [facility] [address] [id number] [id number] Oct, [facility] [address] [id number] [id number] Oct, [facility] [address] [id number] [id number] Oct, [facility] [address] [id number] [place] [address] Oct, [facility] [address] [id number] [place] [address] Oct, [facility] [address] [id number] [place] [address] Oct, [facility] [address] [id number] [place] [address] Oct, [facility] [address] [id number] [place] [address] Oct, [facility] [address] [id number] [place] [address] Oct, [facility] [address] [id number] [place] [address] September, [facility] [address] [facility] [id number] [place] [address] Aug, [facility] [address] [id number] [place] [address] Aug, [facility] [address] [id number] [place] [address] Aug, [facility] [address] [id number] [place] [address] Aug, [facility] [address] [facility] [id number] [place] [address] Jul, [facility] [address] [id number] [place] [address] Jul, [facility] [address] [id number] [place] [address] Jul, [facility] [address] [id number] [place] [address] Jul, [facility] [address] [id number] [place] [address] Jul, [facility] [address] [id number] [place] [address] Jun, [facility] [address] [id number] [place] [address] Jun, [facility] [address] [id number] [place] [address] Jun, [facility] [address] [id number] [place] [address] May, [facility] [address] [id number] [place] [address] May, [facility] [address] [id number] [place] [address] May, [facility] [address] [id number] [place] [address] May, [facility] [address] [id number] [place] [address] May, [facility] [address] [id number] [place] [address] May, [facility] [address] [id number] [place] [address] Apr, [facility] [address] [id number] [place] [address] 18 Apr, 2012 [facility] [address] [id number] [place] [address] Apr, [facility] [address] [id number] [place] [address] Apr, [facility] [address] [id number] [place] [address] Apr, [facility] [address] [id number] [place] [address] Apr, [facility] [address] [id number] [place] [address] Apr, [facility] [address] [id number] [place] [address] Mar, [facility] [address] [id number] [place] [address] Mar, [facility] [address] [id number] [place] [address] Mar, [facility] [address] [id number] [place] [address] Mar, [facility] [address] [id number] [place] [address] 18 Jan, 2012 [facility] [id number] [place] [address] 10 Jan, 2012 [facility] [address] [id number] [place] [address] Jan, [facility] [address] [id number] [place] [address] 06 Jan, [address] [facility] [address] [id number] [place] [id number] Dec, [facility] [id number] [place] [address] Dec, [facility] [address] [id number] [place] [id number] Dec, [facility] [address] [address] Dec, [facility] [address] [address] Dec, [facility] [address] [address] Dec, [facility] [address] [address] Nov, [facility] [address] [address] Nov, [facility] [address] [address] Nov, IMMUNIZATIONS No Known Immunizations SOCIAL HISTORY [...] Stent placed 08/19/2017 Hospitalization History Syncope- [facility] 12/2017 Hospitalization History heart cath ( 06/23/18-06/25/2018) Hospitalization History heart problem, overnight stay 9
--- OUTSIDE RECORDS SUMMARY | 2019-11-03 19:30 | XMS REPORT ---
Author Author Anca Lucero Doctor Organization [facility] Address Unknown Phone Unavailable Care Team Providers Care Triage Technician Name Role Phone Migration, Doctor Unavailable Unavailable PROBLEMS Type Condition ICD9-CM Code [id number] Code Onset Dates Condition S tatus SNOMED Code Problem Generalized anxiety disorder F41.1 Apr, 200 8 Active 08414270 Problem Shortness of breath R06.02 23 Apr, 2008 Active 598536556 Problem Dyslipidemia E78.5 12 Oct, 2017 Active 3709 99813 Problem Unspecified hypothyroidism E03.9 Act hernesto 64924874 Problem Nonintractable migraine G43.009 08 Oct, 2015 Act hernesto 300764482 Problem Esophageal reflux K21.9 Active 24 1287287 Problem Unspecified sleep apnea G47.30 Active 37580018 Problem Pre-diabetes R73.03 Active 1543473 02 Problem Morbid obesity with BMI of 50.0-59.9, adult Z68.43 Active 954794947 Problem Migraine with aura and without status migrainosu s, not intractable G43.109 Active 4963730 Problem Osteoarthritis of right knee M17.11 13 May, 201 0 Active 528008056 Problem Morbid obesity E66.01 Active 91488 6002 Problem Pulmonary embolus I26.99 13 Oct, 2011 Active 09475193 Problem Hypothyroidism E03.9 Active 28245 008 Problem Renal stones N20.0 Active 0199639 7 Problem Coronary artery disease I25.10 Active 07504617 Problem Hyperlipidemia LDL goal <70 E78.5 Ac tive [id number] ALLERGIES No Information ENCOUNTERS Encounter Location Date Diagnosis [facility] [address] [id number] [place] [address] May, [facility] [address] [id number] [place] [address] May, [facility] [address] [place] [address] May, 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 and Dizziness R42 [facility] [address] [facility] [id number] [address] [place] [address] Apr, Non-recurrent acute suppurat hernesto otitis media of both ears without spontaneous rupture of tympanic membranes H66.003 [facility] [address] [address] 08 Feb, 2019 Pre-diabetes R73.03 and Hyperlipidemia L DL goal <70 E78.5 [place] [address] [address] Feb, [place] [address] [address] Feb, [place] [address] [address] Jan, [place] [address] [address] Jan, [place] [address] [address] Jan, Encounter for Medicare annual wellness e xam Z00.00 ; Hyperlipidemia LDL goal <70 E78.5 ; Coronary artery disease I25.10 ; Hypothyroidism E03.9 ; Osteoarthritis of right knee M17.11 ; Morbid obesity with BMI of 50.0-59.9, adult Z68.43 and Esophageal reflux K21.9 [place] [address] [address] Jan, Dysuria R30.0 and Hematuria, unspecified type R31.9 [place] [address] [address] Jan, Hematuria, unspecified type R31.9 [place] [address] [address] Dec, Hematuria, unspecified type R31.9 [place] [address] [address] Nov, Hematuria, unspecified type R31.[address] [place] [address] Nov, Other microscopic hematuria R31.29 [place] [address] [address] Nov, Vaginal gena B37.3 ; Other microscopi c hematuria R31.29 and Morbid obesity E66.01 [place] [address] [address] Nov, [place] [address] [address] Nov, [facility] [address] [place] [id number] [address] [place] [address] Nov, UTI symptoms R39.9 and Morbi d obesity E66.01 [place] [address] [address] Nov, [place] [address] [address] September, [place] [address] [address] September, [place] [address] [address] Aug, Right foot pain M79.671 and Morbid obesi ty E66.01 [place] [address] [address] Jul, Right foot pain M79.671 and Morbid obesi ty E66.01 [facility] [address] [place] [id number] [address] [place] [address] Jul, Injury of right foot, initia l encounter S99.921A and Morbid obesity E66.01 [facility] [address] [address] Jul, Recurrent syncope R55 and Morbid obesity E66.01 [facility] [address] [address] Jul, [facility] [address] [facility] [place] [address] Jun, Hematuria, unspecified type R31.9 and BM I 50.0-59.9, adult Z68.43 [place] [address] [facility] [place] [address] 07 Jun, 2018 [address] [place] [address] 04 Jun, 2018 penitentiary current use of ant icoagulant Z79.01 [facility] [place] [address] [place] [address] May, Ankle pain, right M25.571 an d BMI 50.0-59.9, adult Z68.43 [place] [address] [address] May, [place] [address] [address] May, [place] [address] [address] Apr, [place] [address] [address] Apr, [place] [address] [address] Apr, [facility] [place] [address] [place] [id number] [place] [address] Apr, BMI 50.0-59.9, adult Z68.43 and Weakness R53.1 [place] [address] [address] Apr, [facility] [place] [address] [place] [id number] [place] [address] Apr, Dysuria R30.0 ; Hematuria R3 1.9 ; Renal lithiasis N20.0 and BMI 50.0-59.9, adult Z68.43 [place] [address] [address] Apr, [place] [address] [address] Apr, [place] [address] [address] Apr, Hypothyroidism E03.9 [place] [address] [address] Apr, Burning with urination R30.0 ; 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, without long-term current use of insulin E11.610 ; Acute bilateral low back pain without sciatica M54.5 and BMI 50.0-59.9, adult Z68.43 [place] [address] [address] Mar, Hypothyroidism E03.9 [place] [address] [address] Feb, [facility] [place] [address] [address] 15 Jan, 2018 [place] [address] [address] 07 Jan, 2018 Acute non-recurrent maxillary sinusitis J01.00 and BMI 50.0-59.9, adult Z68.43 [facility] [address] [address] 04 Jan, 2018 Congestion of upper respirat ory tract J98.8 and BMI 50.0-59.9, adult Z68.43 [place] [address] [address] Dec, Type 2 diabetes mellitus with diabetic n europathic arthropathy, without long-term current use of insulin E11.610 ; Morbid obesity with BMI of 50.0-59.9, adult Z68.43 ; Hypothyroidism E03.9 ; Coronary artery disease I25.10 ; Hyperlipidemia LDL goal <70 E78.5 ; Right lower quadrant abdominal pain R10.31 and Acute cystitis with hematuria N30.01 [facility] [address] [facility] [id number] [address] [place] [address] Dec, Migraine with aura and witho ut status migrainosus, not intractable G43.109 ; Dehydration symptoms R63.8 and BMI 50.0-59.9, adult Z68.43 [place] [address] [address] Oct, [place] [address] [address] Oct, [place] [address] [address] Oct, [place] [address] [address] September, [place] [address] [address] September, Type 2 diabetes mellitus with diabetic n europathic arthropathy, without long-term current use of insulin E11.610 ; Hyperlipidemia, unspecified hyperlipidemia type E78.5 ; Personal history of pulmonary embolism Z86.711 ; Coronary artery disease I25.10 and Hypothyroidism E03.9 [place] [address] [address] September, [place] [address] [address] Aug, Type 2 diabetes mellitus with diabetic [...] without aura and with status migrainosus G43.011 [place] [address] [address] Aug, [facility] [address] [address] Aug, [place] [address] [address] Jul, Renal stones N20.0 [facility] [address] [facility] [id number] [address] [place] [address] Jun, Back pain M54.9 ; Kidney sto radha N20.0 and BMI 50.0-59.9, adult Z68.43 [place] [address] [address] Jun, [place] [address] [address] Apr, [place] [address] [address] Apr, [place] [address] [address] Apr, Right foot pain M79.671 ; Acute gout inv olving toe of right foot, 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 and Arthritis M19.90 [place] [address] [address] 06 Apr, 2017 Gastroesophageal reflux disease without esophagitis K21.9 [place] [address] [address] 16 Mar, 2017 Hypothyroidism, unspecified E03.9 [place] [address] [address] Feb, [place] [address] [address] 25 Jan, 2017 Cervicalgia of oiiplrim-aksvzif-txdjr re gion M54.2 and Persistent headaches R51 [place] [address] [address] Jan, [place] [address] [address] Jan, Intractable migraine without aura and wi th status migrainosus G43.011 ; Cervical spine pain M54.2 ; Hyperlipidemia, unspecified hyperlipidemia type E78.5 ; Hypothyroidism E03.9 and Metabolic syndrome E88.81 [place] [address] [address] Jan, Hypothyroidism, unspecified E03.9 [place] [address] [address] Dec, Hypothyroidism, unspecified E03.9 [place] [address] [address] Dec, Hypothyroidism E03.9 [place] [address] [address] Nov, Laceration of left great toe w/o foreign body w/o damage to nail, initial encounter S91.112A [facility] [address] [facility] [id number] [address] [place] [address] Oct, Pain in left knee M25.562 an d Arthritis M19.90 [place] [address] [address] Oct, Hypothyroidism, unspecified E03.9 and Hy perlipidemia, unspecified hyperlipidemia type E78.5 [place] [address] [address] Oct, Gastroesophageal reflux disease without esophagitis K21.9 [place] [address] [address] 14 Oct, 2016 Metabolic syndrome E88.81 ; Personal his tory of pulmonary embolism Z86.711 ; Other specified hypothyroidism E03.8 and Hyperlipidemia, unspecified hyperlipidemia type E78.5 [place] [address] [address] 13 Oct, 2016 Personal history of pulmonary embolism Z 86.711 ; Dysuria R30.0 ; Metabolic syndrome E88.81 ; Other specified hypothyroidism E03.8 ; Hyperlipidemia, unspecified hyperlipidemia type E78.5 and Morbid obesity with BMI of 50.0-59.9, adult Z68.[address] [address] September, [facility] [place] [id number] [place] [address] September, Wrist pain, left M25.532 and Acute pain of left knee M25.[address] [address] Jul, Dysuria R30.[address] [address] Jul, Dysuria R30.[address] [address] Jul, Left lower quadrant pain R10.[address] [address] Jul, [address] [address] Jul, Coronary artery disease I25.10 ; Family history of diabetes mellitus Z83.3 ; Morbid obesity with BMI of 50.0-59.9, adult Z68.43 ; Metabolic syndrome E88.81 ; Personal history of pulmonary embolism Z86.711 ; Gastroesophageal reflux disease without esophagitis K21.9 ; Hypothyroidism, unspecified E03.9 ; Hyperlipidemia, unspecified hyperlipidemia type E78.5 and Left lower quadrant pain R10.32 [facility] [place] [id number] [place] [address] Jul, [facility] [place] [id number] [address] [place] [address] 08 Jul, 2016 Morbid obesity with BMI of 5 0.0-59.9, adult Z68.43 [facility] [place] [id number] [address] [place] [address] Jul, Generalized abdominal pain R 10.84 [facility] [place] [id number] [place] [address] Jun, Muscle strain of right upper back, initial encounter S29.012A [facility] [place] [address] [place] [id number] [place] [address] May, Foreign body (FB) in soft ti ssue M79.5 [place] [address] [address] Mar, Hypothyroidism, unspecified E03.9 and Ar thritis M19.90 [place] [address] [address] Feb, Coronary artery disease I25.10 ; Morbid obesity with BMI of 50.0-59.9, adult Z68.43 ; Metabolic syndrome E88.81 ; Gastroesophageal reflux disease without esophagitis K21.9 ; Hypothyroidism, unspecified E03.9 ; Personal history of pulmonary embolism Z86.711 and Hyperlipidemia, unspecified hyperlipidemia type E78.5 [place] [address] [address] Feb, [facility] [place] [address] [place] [id number] [place] [address] Jan, Acute right-sided thoracic b ack pain M54.6 [place] [address] [address] Jan, Acute pain of left knee M25.562 [place] [address] [address] Dec, Dysuria R30.0 ; Metabolic syndrome E88.8 1 ; Acute pain of left knee M25.562 ; Acute cystitis with hematuria N30.01 and Acute left eye pain H57.12 [place] [address] [address] Dec, [place] [address] [address] Dec, [place] [address] [address] Dec, Hypothyroidism, unspecified E03.9 [place] [address] [address] Dec, [place] [address] [address] Nov, Peripheral edema R60.9 and Acute pain of left knee M25.562 [facility] [place] [address] [address] September, [place] [address] [address] September, Metabolic syndrome E88.81 and Allergy, s ubsequent encounter T78.40XD [facility] [place] [address] [address] September, Muscle strain T14.8 [place] [address] [address] Aug, Chest pressure R07.89 ; Metabolic syndro me E88.81 ; Morbid obesity with BMI of 50.0-59.9, adult Z68.43 ; Esophageal reflux 530.81 and Shortness of breath R06.02 [place] [address] [address] Aug, [place] [address] [address] Aug, [place] [address] [address] Aug, Hypothyroidism, unspecified E03.9 [place] [address] [address] Aug, Routine health maintenance Z00.00 [facility] [place] [address] [place] [id number] [place] [address] Aug, [place] [address] [address] 31 Mar, 2016 Routine health maintenance Z00.00 ; Fami ly history of diabetes mellitus Z83.3 ; Family history of cancer Z80.9 and Morbid obesity with BMI of 50.0-59.9, adult Z68.43 [facility] [address] [facility] [id number] [address] [place] [address] 28 Jul, 2015 Allergic rhinitis J30.9 and Postnasal drip R09.82 [place] [address] [address] 18 Jul, 2015 Influenza J11.1 [facility] [address] [facility] [id number] [address] [place] [address] 08 Jul, 2015 Dysuria R30.0 [place] [address] [address] Apr, [place] [address] [address] Mar, Acute upper respiratory infection, unspe cified J06.9 and Hypothyroidism E03.9 [place] [address] [address] Mar, [place] [address] [address] Feb, Coronary artery disease I25.10 [place] [address] [address] Feb, Left foot pain M79.672 [place] [address] [address] Jan, UTI (urinary tract infection) 599.0 [place] [address] [address] Jan, Urinary tract infection, site not specif ied 599.0 [place] [address] [address] Jan, Urinary tract infection, site not specif ied 599.0 [place] [address] [address] Jan, [facility] [address] [place] [id number] [place] [address] Dec, Headache 784.0 [facility] [address] [address] Dec, Urinary tract infection, site not specif ied 599.0 [place] [address] [address] Dec, Urinary tract infection, site not specif ied 599.0 [facility] [address] [address] Dec, Urinary tract infection, site not specif ied 599.0 [place] [address] [address] Nov, Unspecified sleep apnea 780.57 ; Encount er for long-term (current) use of anticoagulants V58.61 ; Routine general medical examination at [facility] V70.0 and Arthritis of both knees 716.96 [place] [address] [address] September, Cat bite of hand 882.0 and Rectal bleedi ng 569.3 [place] [address] [place] [id number] [place] [address] Aug, [place] [address] [address] Aug, [place] [address] [address] Jul, [facility] [address] [address] Jul, [place] [address] [address] Jul, [facility] [address] [address] Jul, [facility] [address] [address] Jul, [facility] [address] [facility] [place] [address] Jul, [facility] [address] [facility] [place] [address] Jul, [facility] [address] [facility] [place] [address] Jul, [facility] [address] [facility] [place] [address] May, [facility] [address] [id number] [place] [address] May, [facility] [address] [id number] [place] [address] May, [facility] [address] [id number] [place] [address] May, [facility] [address] [id number] [place] [address] May, [facility] [address] [id number] [place] [address] May, [facility] [address] [id number] [place] [address] May, [facility] [address] [id number] [place] [address] Mar, [facility] [address] [facility] [place] [address] Mar, [facility] [address] [facility] [place] [address] 08 Jan, 2013 [facility] [address] [facility] [place] [address] 08 Sep, 2013 [facility] [address] [facility] [place] [address] 08 Jan, 2013 [facility] [address] [facility] [place] [address] 08 Jan, 2013 [facility] [address] [id number] [place] [address] Jan, [facility] [address] [id number] [place] [address] Jan, [facility] [address] [facility] [id number] [place] [address] Dec, [facility] [address] [id number] [place] [address] Dec, [facility] [address] [facility] [id number] [place] [address] Dec, [facility] [address] [facility] [id number] [place] [address] Dec, [facility] [address] [id number] [place] [address] Dec, [facility] [address] [id number] [place] [address] Dec, [facility] [address] [id number] [place] [address] Dec, [facility] [address] [facility] [id number] [place] [address] Dec, [facility] [address] [id number] [place] [address] Dec, [facility] [address] [id number] [place] [address] Dec, [facility] [address] [id number] [place] [address] Nov, [facility] [address] [facility] [id number] [place] [address] Nov, [facility] [address] [id number] [place] [address] September, [facility] [address] [id number] [place] [address] September, [facility] [address] [id number] [place] [address] September, [facility] [address] [facility] [id number] [place] [address] September, [facility] [address] [id number] [place] [address] Aug, [facility] [address] [id number] [place] [address] Aug, [facility] [address] [id number] [place] [address] Aug, [facility] [address] [facility] [id number] [place] [address] Aug, [facility] [address] [id number] [place] [address] Aug, [facility] [address] [id number] [place] [address] Aug, [facility] [address] [id number] [place] [address] Aug, [facility] [address] [id number] [place] [address] Aug, [facility] [address] [id number] [place] [address] Aug, [facility] [address] [id number] [place] [address] Aug, [facility] [address] [id number] [place] [address] Aug, [facility] [address] [id number] [place] [address] Aug, [facility] [address] [facility] [id number] [place] [address] Jul, [facility] [address] [id number] [place] [address] Jul, [facility] [address] [id number] [place] [address] Jul, [facility] [address] [id number] [place] [address] Jul, [facility] [address] [id number] [place] [address] Jul, [facility] [address] [id number] [place] [address] Jul, [facility] [address] [id number] [place] [address] Jul, [facility] [address] [id number] [place] [address] Jul, [facility] [address] [id number] [place] [address] Jul, [facility] [address] [id number] [place] [address] Jul, [facility] [address] [id number] [place] [address] Jun, [facility] [address] [id number] [place] [address] Jun, [facility] [address] [id number] [place] [address] Jun, [facility] [address] [id number] [place] [address] Jun, [facility] [address] [id number] [place] [address] Jun, [facility] [address] [id number] [place] [address] Jun, [facility] [address] [id number] [place] [address] Jun, [facility] [address] [id number] [place] [address] Jun, [facility] [address] [id number] [place] [address] Jun, [facility] [address] [id number] [place] [address] Jun, [facility] [address] [facility] [id number] [place] [address] Jun, [facility] [address] [facility] [id number] [place] [address] Jun, [facility] [address] [id number] [place] [address] May, [facility] [address] [id number] [place] [address] May, [facility] [address] [facility] [id number] [place] [address] May, [facility] [address] [id number] [place] [address] May, [facility] [address] [id number] [place] [address] May, [facility] [address] [id number] [place] [address] May, [facility] [address] [id number] [place] [address] May, [facility] [address] [id number] [place] [address] May, [facility] [address] [id number] [place] [address] May, [facility] [address] [id number] [place] [address] May, [facility] [address] [id number] [place] [address] May, [facility] [address] [id number] [place] [address] May, [facility] [address] [id number] [place] [address] May, [facility] [address] [id number] [place] [address] May, [facility] [address] [id number] [place] [address] May, [facility] [address] [id number] [place] [address] Apr, [facility] [address] [id number] [place] [address] Apr, [facility] [address] [id number] [place] [address] Apr, [facility] [address] [id number] [place] [address] Apr, [facility] [address] [id number] [place] [address] Mar, [facility] [address] [id number] [place] [address] Mar, [facility] [id number] [place] [address] Mar, [facility] [address] [id number] [place] [address] Mar, [facility] [address] [id number] [place] [address] Mar, [facility] [id number] [place] [address] Mar, [facility] [address] [id number] [place] [address] Mar, [facility] [address] [id number] [place] [address] Mar, [facility] [address] [id number] [place] [address] Mar, [facility] [address] [id number] [place] [address] Mar, [facility] [address] [id number] [place] [address] Mar, [facility] [id number] [place] [address] Mar, [facility] [address] [id number] [place] [address] 03 Feb, 2012 [facility] [address] [id number] [place] [address] 18 Jan, 2012 [facility] [address] [facility] [id number] [place] [address] 17 Jan, 2012 [facility] [address] [id number] [place] [address] 06 Jan, 2012 [facility] [address] [facility] [id number] [place] [address] 04 Jan, 2012 [facility] [address] [id number] [place] [address] Jan, 2012 [facility] [address] [id number] [place] [address] Dec, [facility] [address] [id number] [place] [address] Dec, [facility] [address] [id number] [place] [address] Dec, [facility] [address] [id number] [place] [address] Dec, [facility] [address] [id number] [place] [address] Dec, [facility] [address] [id number] [place] [address] Dec, [facility] [address] [id number] [place] [address] Dec, [facility] [address] [id number] [place] [address] Dec, [facility] [address] [id number] [place] [address] Nov, [facility] [address] [id number] [place] [address] Nov, [facility] [address] [id number] [place] [address] Nov, [facility] [address] [id number] [place] [address] Nov, [facility] [address] [id number] [place] [address] Nov, [facility] [address] [id number] [place] [address] Nov, [facility] [address] [id number] [place] [address] Oct, [facility] [address] [id number] [place] [id number] Oct, [facility] [address] [id number] [place] [id number] Oct, [facility] [address] [id number] [place] [id number] Oct, [facility] [address] [id number] [place] [id number] Oct, [facility] [id number] [place] [address] Oct, [facility] [address] [id number] [place] [address] Oct, [facility] [id number] [place] [address] Oct, [facility] [address] [id number] [place] [address] Oct, [facility] [address] [id number] [place] [address] Oct, [facility] [address] [id number] [place] [address] Oct, [facility] [address] [id number] [place] [address] September, [facility] [address] [id number] [place] [address] Aug, [facility] [address] [id number] [place] [address] Aug, [facility] [address] [id number] [place] [address] Aug, [facility] [address] [id number] [place] [address] Aug, [facility] [address] [id number] [place] [address] Jul, [facility] [address] [id number] [place] [address] Jul, [facility] [address] [id number] [place] [address] Jul, [facility] [address] [id number] [place] [address] Jul, [facility] [address] [id number] [place] [address] Jul, [facility] [address] [id number] [place] [address] Jun, [facility] [address] [id number] [place] [address] Jun, [facility] [address] [id number] [place] [address] Jun, [facility] [address] [id number] [place] [address] May, [facility] [address] [id number] [place] [address] May, [facility] [address] [id number] [place] [address] May, [facility] [address] [id number] [place] [address] May, [facility] [address] [id number] [place] [address] May, [facility] [address] [id number] [place] [address] May, [facility] [address] [id number] [place] [address] Apr, [facility] [address] [id number] [place] [address] Apr, [facility] [address] [id number] [place] [address] Apr, [facility] [address] [id number] [place] [address] Apr, [facility] [address] [id number] [place] [address] Apr, [facility] [address] [id number] [place] [address] Apr, [facility] [address] [id number] [place] [address] Apr, [facility] [address] [id number] [place] [address] Mar, [facility] [address] [id number] [place] [address] Mar, [facility] [address] [id number] [place] [address] Mar, [facility] [address] [id number] [place] [address] Mar, [facility] [address] [id number] [place] [address] Jan, [facility] [address] [id number] [place] [address] Jan, [facility] [address] [id number] [place] [address] Jan, [facility] [address] [id number] [place] [address] Jan, [facility] [place] [facility] [address] [id number] [place] [id number] Dec, [facility] [address] [id number] [place] [address] Dec, [facility] [place] [address] [id number] [place] [id number] Dec, [facility] [id number] [place] [address] Dec, [facility] [address] [address] Dec, [facility] [address] [address] Dec, [facility] [address] [address] Nov, [facility] [address] [address] Nov, [facility] [address] [address] Nov, IMMUNIZATIONS No Known Immunizations SOCIAL HISTORY [...] asthma(493.90) Medical History Near syncope Medical History penitentiary current use of anticoagulant Medical History Renal [...]
--- OUTSIDE RECORDS SUMMARY | 2019-11-03 19:30 | XMS REPORT ---
Author Author Anca Lucero Doctor Organization [facility] Address Unknown Phone Unavailable Care Team Providers Care Atmospheric Sciences Professor Name Role Phone Migration, Doctor Unavailable Unavailable PROBLEMS Type Condition ICD9-CM Code JLC77-HQ Code Onset Dates Condition S tatus SNOMED Code Problem Generalized anxiety disorder F41.1 Apr, 200 8 Active 17708462 Problem Shortness of breath R06.02 Apr, Active 005990666 Problem Dyslipidemia E78.5 12 Oct, 2017 Active 3709 19839 Problem Unspecified hypothyroidism E03.9 Act hernesto 39705744 Problem Nonintractable migraine G43.009 08 Oct, 2015 Act hernesto 766224602 Problem Esophageal reflux K21.9 Active 24 6636792 Problem Unspecified sleep apnea G47.30 Active 41042631 Problem Pre-diabetes R73.03 Active 6827575 02 Problem Morbid obesity with BMI of 50.0-59.9, adult Z68.43 Active 546193251 Problem Migraine with aura and without status migrainosu s, not intractable G43.109 Active 0576857 Problem Osteoarthritis of right knee M17.11 13 May, 201 0 Active 393031504 Problem Morbid obesity E66.01 Active 29515 6002 Problem Pulmonary embolus I26.99 13 Oct, 2011 Active 05753548 Problem Hypothyroidism E03.9 Active 16523 008 Problem Renal stones N20.0 Active 1932716 7 Problem Coronary artery disease I25.10 Active 52077052 Problem Hyperlipidemia LDL goal <70 E78.5 Ac tive 35525710 ALLERGIES No Information ENCOUNTERS Encounter Location Date Diagnosis [facility] [address] [id number] [place] [address] May, [facility] [address] [id number] [place] [address] May, [facility] [address] [place] [address] May, 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 [id number] [address] [place] [address] Apr, Non-recurrent acute suppurat hernesto otitis media of both ears without spontaneous rupture of tympanic membranes H66.003 [facility] [address] [address] 08 Feb, 2019 Pre-diabetes R73.03 and Hyperlipidemia L DL goal <70 E78.5 [place] [address] [address] Feb, [place] [address] [address] Feb, [place] [address] [address] Jan, [place] [address] [address] Jan, [place] [address] [address] Jan, Encounter for Medicare annual wellness e xam Z00.00 ; Hyperlipidemia LDL goal <70 E78.5 ; Coronary artery disease I25.10 ; Hypothyroidism E03.9 ; Osteoarthritis of right knee M17.11 ; Morbid obesity with BMI of 50.0-59.9, adult Z68.43 and Esophageal reflux K21.9 [place] [address] [address] Jan, Dysuria R30.0 and Hematuria, unspecified type R31.9 [place] [address] [address] Jan, Hematuria, unspecified type R31.9 [place] [address] [address] Dec, Hematuria, unspecified type R31.9 [place] [address] [address] Nov, Hematuria, unspecified type R31.[address] [place] [address] Nov, Other microscopic hematuria R31.29 [place] [address] [address] Nov, Vaginal gena B37.3 ; Other microscopi c hematuria R31.29 and Morbid obesity E66.01 [place] [address] [address] Nov, [place] [address] [address] Nov, [facility] [address] [place] [id number] [address] [place] [address] Nov, UTI symptoms R39.9 and Morbi d obesity E66.01 [place] [address] [address] Nov, [place] [address] [address] September, [place] [address] [address] September, [place] [address] [address] Aug, Right foot pain M79.671 and Morbid obesi ty E66.01 [place] [address] [address] Jul, Right foot pain M79.671 and Morbid obesi ty E66.01 [facility] [address] [place] [id number] [address] [place] [address] Jul, Injury of right foot, initia l encounter S99.921A and Morbid obesity E66.01 [facility] [address] [address] Jul, Recurrent syncope R55 and Morbid obesity E66.01 [facility] [address] [address] Jul, [facility] [address] [id number] [place] [address] Jun, Hematuria, unspecified type R31.9 and BM I 50.0-59.9, adult Z68.43 [place] [address] [id number] [place] [address] 07 Jun, [address] [place] [address] 04 Jun, 2018 long-term current use of ant icoagulant Z79.01 [facility] [place] [address] [place] [address] May, Ankle pain, right M25.571 an d BMI 50.0-59.9, adult Z68.43 [place] [address] [address] May, [place] [address] [address] May, [place] [address] [address] Apr, [place] [address] [address] Apr, [place] [address] [address] Apr, [facility] [place] [address] [place] [id number] [address] [place] [address] Apr, BMI 50.0-59.9, adult Z68.43 and Weakness R53.1 [place] [address] [address] Apr, [facility] [place] [address] [place] [id number] [place] [address] Apr, Dysuria R30.0 ; Hematuria R3 1.9 ; Renal lithiasis N20.0 and BMI 50.0-59.9, adult Z68.43 [place] [address] [address] Apr, [place] [address] [address] Apr, [place] [address] [address] Apr, Hypothyroidism E03.9 [place] [address] [address] Apr, Burning with urination R30.0 ; 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, without long-term current use of insulin E11.610 ; Acute bilateral low back pain without sciatica M54.5 and BMI 50.0-59.9, adult Z68.43 [place] [address] [address] Mar, Hypothyroidism E03.9 [place] [address] [address] Feb, [facility] [place] [address] [address] 15 Jan, 2018 [place] [address] [address] 07 Jan, 2018 Acute non-recurrent maxillary sinusitis J01.00 and BMI 50.0-59.9, adult Z68.43 [facility] [address] [address] 04 Jan, 2018 Congestion of upper respirat ory tract J98.8 and BMI 50.0-59.9, adult Z68.43 [place] [address] [address] Dec, Type 2 diabetes mellitus with diabetic n europathic arthropathy, without long-term current use of insulin E11.610 ; Morbid obesity with BMI of 50.0-59.9, adult Z68.43 ; Hypothyroidism E03.9 ; Coronary artery disease I25.10 ; Hyperlipidemia LDL goal <70 E78.5 ; Right lower quadrant abdominal pain R10.31 and Acute cystitis with hematuria N30.01 [facility] [address] [facility] [id number] [address] [place] [address] Dec, Migraine with aura and witho ut status migrainosus, not intractable G43.109 ; Dehydration symptoms R63.8 and BMI 50.0-59.9, adult Z68.43 [place] [address] [address] Oct, [place] [address] [address] Oct, [place] [address] [address] Oct, [place] [address] [address] September, [place] [address] [address] September, Type 2 diabetes mellitus with diabetic n europathic arthropathy, without long-term current use of insulin E11.610 ; Hyperlipidemia, unspecified hyperlipidemia type E78.5 ; Personal history of pulmonary embolism Z86.711 ; Coronary artery disease I25.10 and Hypothyroidism E03.9 [place] [address] [address] September, [place] [address] [address] Aug, Type 2 diabetes mellitus with diabetic [...] without aura and with status migrainosus G43.011 [place] [address] [address] Aug, [facility] [address] [address] Aug, [place] [address] [address] Jul, Renal stones N20.0 [facility] [address] [facility] [id number] [address] [place] [address] Jun, Back pain M54.9 ; Kidney sto radha N20.0 and BMI 50.0-59.9, adult Z68.43 [place] [address] [address] Jun, [place] [address] [address] Apr, [place] [address] [address] Apr, [place] [address] [address] Apr, Right foot pain M79.671 ; Acute gout inv olving toe of right foot, 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 and Arthritis M19.90 [place] [address] [address] 06 Apr, 2017 Gastroesophageal reflux disease without esophagitis K21.9 [place] [address] [address] 16 Mar, 2017 Hypothyroidism, unspecified E03.9 [place] [address] [address] Feb, [place] [address] [address] 25 Jan, 2017 Cervicalgia of ajzpjynd-ggfozwk-tghhv re gion M54.2 and Persistent headaches R51 [place] [address] [address] Jan, [place] [address] [address] Jan, Intractable migraine without aura and wi th status migrainosus G43.011 ; Cervical spine pain M54.2 ; Hyperlipidemia, unspecified hyperlipidemia type E78.5 ; Hypothyroidism E03.9 and Metabolic syndrome E88.81 [place] [address] [address] Jan, Hypothyroidism, unspecified E03.9 [place] [address] [address] Dec, Hypothyroidism, unspecified E03.9 [place] [address] [address] Dec, Hypothyroidism E03.9 [place] [address] [address] Nov, Laceration of left great toe w/o foreign body w/o damage to nail, initial encounter S91.112A [facility] [address] [facility] [id number] [address] [place] [address] Oct, Pain in left knee M25.562 an d Arthritis M19.90 [place] [address] [address] Oct, Hypothyroidism, unspecified E03.9 and Hy perlipidemia, unspecified hyperlipidemia type E78.5 [place] [address] [address] Oct, Gastroesophageal reflux disease without esophagitis K21.9 [place] [address] [address] 14 Oct, 2016 Metabolic syndrome E88.81 ; Personal his tory of pulmonary embolism Z86.711 ; Other specified hypothyroidism E03.8 and Hyperlipidemia, unspecified hyperlipidemia type E78.5 [place] [address] [address] 13 Oct, 2016 Personal history of pulmonary embolism Z 86.711 ; Dysuria R30.0 ; Metabolic syndrome E88.81 ; Other specified hypothyroidism E03.8 ; Hyperlipidemia, unspecified hyperlipidemia type E78.5 and Morbid obesity with BMI of 50.0-59.9, adult Z68.[address] [address] September, [facility] [place] [id number] [place] [address] September, Wrist pain, left M25.532 and Acute pain of left knee M25.[address] [address] Jul, Dysuria R30.[address] [address] Jul, Dysuria R30.[address] [address] Jul, Left lower quadrant pain R10.[address] [address] Jul, [address] [address] Jul, Coronary artery disease I25.10 ; Family history of diabetes mellitus Z83.3 ; Morbid obesity with BMI of 50.0-59.9, adult Z68.43 ; Metabolic syndrome E88.81 ; Personal history of pulmonary embolism Z86.711 ; Gastroesophageal reflux disease without esophagitis K21.9 ; Hypothyroidism, unspecified E03.9 ; Hyperlipidemia, unspecified hyperlipidemia type E78.5 and Left lower quadrant pain R10.32 [facility] [place] [id number] [place] [address] Jul, [facility] [place] [id number] [address] [place] [address] 08 Jul, 2016 Morbid obesity with BMI of 5 0.0-59.9, adult Z68.43 [facility] [place] [id number] [place] [address] Jul, Generalized abdominal pain R 10.84 [facility] [place] [id number] [place] [address] Jun, Muscle strain of right upper back, initial encounter S29.012A [facility] [place] [address] [place] [id number] [place] [address] May, Foreign body (FB) in soft ti ssue M79.5 [place] [address] [address] Mar, Hypothyroidism, unspecified E03.9 and Ar thritis M19.90 [place] [address] [address] Feb, Coronary artery disease I25.10 ; Morbid obesity with BMI of 50.0-59.9, adult Z68.43 ; Metabolic syndrome E88.81 ; Gastroesophageal reflux disease without esophagitis K21.9 ; Hypothyroidism, unspecified E03.9 ; Personal history of pulmonary embolism Z86.711 and Hyperlipidemia, unspecified hyperlipidemia type E78.5 [place] [address] [address] Feb, [facility] [place] [address] [place] [id number] [place] [address] Jan, Acute right-sided thoracic b ack pain M54.6 [place] [address] [address] Jan, Acute pain of left knee M25.562 [place] [address] [address] Dec, Dysuria R30.0 ; Metabolic syndrome E88.8 1 ; Acute pain of left knee M25.562 ; Acute cystitis with hematuria N30.01 and Acute left eye pain H57.12 [place] [address] [address] Dec, [place] [address] [address] Dec, [place] [address] [address] Dec, Hypothyroidism, unspecified E03.9 [place] [address] [address] Dec, [place] [address] [address] Nov, Peripheral edema R60.9 and Acute pain of left knee M25.562 [facility] [place] [address] [address] September, [place] [address] [address] September, Metabolic syndrome E88.81 and Allergy, s ubsequent encounter T78.40XD [facility] [place] [address] [address] September, Muscle strain T14.8 [place] [address] [address] Aug, Chest pressure R07.89 ; Metabolic syndro me E88.81 ; Morbid obesity with BMI of 50.0-59.9, adult Z68.43 ; Esophageal reflux 530.81 and Shortness of breath R06.02 [place] [address] [address] Aug, [place] [address] [address] Aug, [place] [address] [address] Aug, Hypothyroidism, unspecified E03.9 [place] [address] [address] Aug, Routine health maintenance Z00.00 [facility] [place] [address] [place] [id number] [address] [place] [address] Aug, [place] [address] [address] 31 Mar, 2016 Routine health maintenance Z00.00 ; Fami ly history of diabetes mellitus Z83.3 ; Family history of cancer Z80.9 and Morbid obesity with BMI of 50.0-59.9, adult Z68.43 [facility] [address] [facility] [id number] [address] [place] [address] 28 Jul, 2015 Allergic rhinitis J30.9 and Postnasal drip R09.82 [place] [address] [address] 18 Jul, 2015 Influenza J11.1 [facility] [address] [facility] [id number] [address] [place] [address] 08 Jul, 2015 Dysuria R30.0 [place] [address] [address] Apr, [place] [address] [address] Mar, Acute upper respiratory infection, unspe cified J06.9 and Hypothyroidism E03.9 [place] [address] [address] Mar, [place] [address] [address] Feb, Coronary artery disease I25.10 [place] [address] [address] Feb, Left foot pain M79.672 [place] [address] [address] Jan, UTI (urinary tract infection) 599.0 [place] [address] [address] Jan, Urinary tract infection, site not specif ied 599.0 [place] [address] [address] Jan, Urinary tract infection, site not specif ied 599.0 [place] [address] [address] Jan, [facility] [address] [place] [id number] [place] [address] Dec, Headache 784.0 [facility] [address] [address] Dec, Urinary tract infection, site not specif ied 599.0 [place] [address] [address] Dec, Urinary tract infection, site not specif ied 599.0 [facility] [address] [address] Dec, Urinary tract infection, site not specif ied 599.0 [place] [address] [address] Nov, Unspecified sleep apnea 780.57 ; Encount er for long-term (current) use of anticoagulants V58.61 ; Routine general medical examination at [facility] care facility V70.0 and Arthritis of both knees 716.96 [place] [address] [address] September, Cat bite of hand 882.0 and Rectal bleedi ng 569.3 [place] [address] [place] [id number] [place] [address] Aug, [place] [address] [address] Aug, [place] [address] [address] Jul, [facility] [address] [address] Jul, [place] [address] [address] Jul, [facility] [address] [address] Jul, [facility] [address] [address] Jul, [facility] [address] [id number] [place] [address] Jul, [facility] [address] [id number] [place] [address] Jul, [facility] [address] [id number] [place] [address] Jul, [facility] [address] [id number] [place] [address] May, [facility] [address] [id number] [place] [address] May, [facility] [address] [id number] [place] [address] May, [facility] [address] [id number] [place] [address] May, [facility] [address] [id number] [place] [address] May, [facility] [address] [id number] [place] [address] May, [facility] [address] [id number] [place] [address] May, [facility] [address] [id number] [place] [address] Mar, [facility] [address] [id number] [place] [address] Mar, [facility] [address] [id number] [place] [address] 08 Jan, 2013 [facility] [address] [id number] [place] [address] 08 Sep, 2013 [facility] [address] [id number] [place] [address] 08 Jan, 2013 [facility] [address] [id number] [place] [address] 08 Jan, 2013 [facility] [address] [id number] [place] [address] Jan, [facility] [address] [id number] [place] [address] Jan, [facility] [address] [facility] [id number] [place] [address] Dec, [facility] [address] [id number] [place] [address] Dec, [facility] [address] [facility] [id number] [place] [address] Dec, [facility] [address] [facility] [id number] [place] [address] Dec, [facility] [address] [id number] [place] [address] Dec, [facility] [address] [id number] [place] [address] Dec, [facility] [address] [id number] [place] [address] Dec, [facility] [address] [facility] [id number] [place] [address] Dec, [facility] [address] [id number] [place] [address] Dec, [facility] [address] [id number] [place] [address] Dec, [facility] [address] [id number] [place] [address] Nov, [facility] [address] [facility] [id number] [place] [address] Nov, [facility] [address] [id number] [place] [address] September, [facility] [address] [id number] [place] [address] September, [facility] [address] [id number] [place] [address] September, [facility] [address] [facility] [id number] [place] [address] September, [facility] [address] [id number] [place] [address] Aug, [facility] [address] [id number] [place] [address] Aug, [facility] [address] [id number] [place] [address] Aug, [facility] [address] [facility] [id number] [place] [address] Aug, [facility] [address] [id number] [place] [address] Aug, [facility] [address] [id number] [place] [address] Aug, [facility] [address] [id number] [place] [address] Aug, [facility] [address] [id number] [place] [address] Aug, [facility] [address] [id number] [place] [address] Aug, [facility] [address] [id number] [place] [address] Aug, [facility] [address] [id number] [place] [address] Aug, [facility] [address] [id number] [place] [address] Aug, [facility] [address] [facility] [id number] [place] [address] Jul, [facility] [address] [id number] [place] [address] Jul, [facility] [address] [id number] [place] [address] Jul, [facility] [address] [id number] [place] [address] Jul, [facility] [address] [id number] [place] [address] Jul, [facility] [address] [id number] [facility] [place] [address] Jul, [facility] [address] [id number] [place] [address] Jul, [facility] [address] [id number] [place] [address] Jul, [facility] [address] [id number] [place] [address] Jul, [facility] [address] [id number] [place] [address] Jul, [facility] [address] [id number] [place] [address] Jun, [facility] [address] [id number] [place] [address] Jun, [facility] [address] [id number] [place] [address] Jun, [facility] [address] [id number] [place] [address] Jun, [facility] [address] [id number] [place] [address] Jun, [facility] [facility] [address] [id number] [place] [address] Jun, [facility] [address] [id number] [place] [address] Jun, [facility] [address] [id number] [place] [address] Jun, [facility] [address] [id number] [place] [address] Jun, [facility] [address] [id number] [place] [address] Jun, [facility] [address] [facility] [id number] [place] [address] Jun, [facility] [address] [id number] [place] [address] Jun, [facility] [address] [id number] [place] [address] May, [facility] [address] [id number] [place] [address] May, [facility] [address] [facility] [id number] [place] [address] May, [facility] [address] [id number] [place] [address] May, [facility] [address] [id number] [place] [address] May, [facility] [address] [id number] [place] [address] May, [facility] [address] [id number] [place] [address] May, [facility] [address] [id number] [place] [address] May, [facility] [address] [id number] [place] [address] May, [facility] [address] [id number] [place] [address] May, [facility] [address] [id number] [place] [address] May, [facility] [address] [id number] [place] [address] May, [facility] [address] [id number] [place] [address] May, [facility] [address] [id number] [place] [address] May, [facility] [address] [id number] [place] [address] May, [facility] [address] [id number] [place] [address] Apr, [facility] [address] [id number] [place] [address] Apr, [facility] [address] [id number] [place] [address] Apr, [facility] [address] [id number] [place] [address] Apr, [facility] [address] [id number] [place] [address] Mar, [facility] [address] [id number] [place] [address] Mar, [facility] [id number] [place] [address] Mar, [facility] [address] [id number] [place] [address] Mar, [facility] [address] [id number] [place] [address] Mar, [facility] [id number] [place] [address] Mar, [facility] [address] [id number] [place] [address] Mar, [facility] [address] [id number] [place] [address] Mar, [facility] [address] [id number] [place] [address] Mar, [facility] [address] [id number] [place] [address] Mar, [facility] [address] [id number] [place] [address] Mar, [facility] [id number] [place] [address] Mar, [facility] [address] [id number] [facility] [place] [address] 03 Feb, 2012 [facility] [address] [id number] [place] [address] 18 Jan, 2012 [facility] [address] [facility] [id number] [facility] [place] [address] 17 Jan, 2012 [facility] [address] [id number] [place] [address] 06 Jan, 2012 [facility] [address] [facility] [id number] [facility] [place] [address] 04 Jan, 2012 [facility] [address] [id number] [facility] [place] [address] Jan, 2012 [facility] [address] [id number] [place] [address] Dec, [facility] [address] [id number] [place] [address] Dec, [facility] [address] [id number] [place] [address] Dec, [facility] [address] [id number] [place] [address] Dec, [facility] [address] [id number] [place] [address] Dec, [facility] [address] [id number] [place] [address] Dec, [facility] [address] [id number] [place] [address] Dec, [facility] [address] [id number] [place] [address] Dec, [facility] [address] [id number] [place] [address] Nov, [facility] [address] [id number] [place] [address] Nov, [facility] [address] [id number] [place] [address] Nov, [facility] [address] [id number] [place] [address] Nov, [facility] [address] [id number] [place] [address] Nov, [facility] [address] [id number] [place] [address] Nov, [facility] [address] [id number] [place] [address] Oct, [facility] [address] [id number] [place] [id number] Oct, [facility] [place] [address] [id number] [place] [id number] Oct, [facility] [place] [address] [id number] [place] [id number] Oct, [facility] [place] [address] [id number] [place] [id number] Oct, [facility] [id number] [place] [address] Oct, [facility] [address] [id number] [place] [address] Oct, [facility] [id number] [place] [address] Oct, [facility] [address] [id number] [place] [address] Oct, [facility] [address] [id number] [place] [address] Oct, [facility] [address] [id number] [place] [address] Oct, [facility] [address] [id number] [place] [address] September, [facility] [address] [id number] [place] [address] Aug, [facility] [address] [id number] [place] [address] Aug, [facility] [address] [id number] [place] [address] Aug, [facility] [address] [id number] [place] [address] Aug, [facility] [address] [id number] [place] [address] Jul, [facility] [address] [id number] [place] [address] Jul, [facility] [address] [id number] [place] [address] Jul, [facility] [address] [id number] [place] [address] Jul, [facility] [address] [id number] [place] [address] Jul, [facility] [address] [id number] [place] [address] Jun, [facility] [address] [id number] [place] [address] Jun, [facility] [address] [id number] [place] [address] Jun, [facility] [address] [id number] [place] [address] May, [facility] [address] [id number] [place] [address] May, [facility] [address] [id number] [place] [address] May, [facility] [address] [id number] [place] [address] May, [facility] [address] [id number] [place] [address] May, [facility] [address] [id number] [place] [address] May, [facility] [address] [id number] [place] [address] Apr, [facility] [address] [id number] [place] [address] Apr, [facility] [address] [id number] [place] [address] Apr, [facility] [address] [id number] [place] [address] Apr, [facility] [address] [id number] [place] [address] Apr, [facility] [address] [id number] [place] [address] Apr, [facility] [address] [id number] [place] [address] Apr, [facility] [address] [id number] [place] [address] Mar, [facility] [address] [id number] [place] [address] Mar, [facility] [address] [id number] [place] [address] Mar, [facility] [address] [id number] [place] [address] Mar, [facility] [address] [id number] [place] [address] Jan, [facility] [address] [id number] [place] [address] Jan, [facility] [address] [id number] [place] [address] Jan, [facility] [address] [id number] [place] [address] Jan, [facility] [place] [address] [id number] [place] [id number] Dec, [facility] [address] [id number] [place] [address] Dec, [facility] [place] [address] [id number] [place] [id number] Dec, [facility] [id number] [place] [address] Dec, [facility] [id number] [place] [address] Dec, [facility] [address] [id number] [place] [address] Dec, [facility] [address] [address] Nov, [facility] [address] [id number] [place] [address] Nov, [facility] [id number] [place] [address] Nov, IMMUNIZATIONS No Known Immunizations SOCIAL HISTORY Never Assessed REASON FOR VISIT PLAN OF CARE VITAL SIGNS Height 62 in 2013-10-07 Weight 320.8 lbs 2013-10-07 Temperature 98.1 degrees Fahrenheit 2013-10-07 Heart Rate 84 bpm 2013-10-07 Respiratory Rate 22 2013-10-07 Blood pressure systolic 110 mmHg 2013-10-07 Blood pressure diastolic 64 mmHg 2013-10-07 MEDICATIONS Unknown Medications RESULTS No Results PROCEDURES [...] Medical History Near syncope 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
--- OUTSIDE RECORDS SUMMARY | 2019-11-03 19:30 | XMS REPORT ---
Author Author Anca Lucero Doctor Organization [facility] Address Unknown Phone Unavailable Care Team Providers Care Room Service Clerk Name Role Phone Migration, Doctor Unavailable Unavailable PROBLEMS Type Condition ICD9-CM Code KIU33-PR Code Onset Dates Condition S tatus SNOMED Code Problem Generalized anxiety disorder F41.1 Apr, 200 8 Active 95023952 Problem Shortness of breath R06.02 23 Apr, 2008 Active 960541318 Problem Dyslipidemia E78.5 12 Oct, 2017 Active 3709 50196 Problem Unspecified hypothyroidism E03.9 Act hernesto 42304413 Problem Nonintractable migraine G43.009 08 Oct, 2015 Act hernesto 033942441 Problem Esophageal reflux K21.9 Active 24 8139720 Problem Unspecified sleep apnea G47.30 Active 30815013 Problem Pre-diabetes R73.03 Active 4209722 02 Problem Morbid obesity with BMI of 50.0-59.9, adult Z68.43 Active 436182759 Problem Migraine with aura and without status migrainosu s, not intractable G43.109 Active 5406006 Problem Osteoarthritis of right knee M17.11 13 May, 201 0 Active 373559120 Problem Morbid obesity E66.01 Active 89745 6002 Problem Pulmonary embolus I26.99 13 Oct, 2011 Active 37911418 Problem Hypothyroidism E03.9 Active 49266 008 Problem Renal stones N20.0 Active 6952591 7 Problem Coronary artery disease I25.10 Active 25699809 Problem Hyperlipidemia LDL goal <70 E78.5 Ac tive 65931833 ALLERGIES No Information ENCOUNTERS Encounter Location Date Diagnosis [facility] [address] [facility] [id number] [place] [address] May, [facility] [address] [place] [address] 17 May, 2019 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 and Dizziness R42 [facility] [address] [facility] [id number] [address] [place] [address] Apr, Non-recurrent acute suppurat hernesto otitis media of both ears without spontaneous rupture of tympanic membranes H66.003 [place] [address] [address] 08 Feb, 2019 Pre-diabetes R73.03 and Hyperlipidemia L DL goal <[address] [address] Feb, [place] [address] [address] Feb, [place] [address] [address] Jan, [place] [address] [address] Jan, [address] [address] Jan, Encounter for Medicare annual wellness e xam Z00.00 ; Hyperlipidemia LDL goal <70 E78.5 ; Coronary artery disease I25.10 ; Hypothyroidism E03.9 ; Osteoarthritis of right knee M17.11 ; Morbid obesity with BMI of 50.0-59.9, adult Z68.43 and Esophageal reflux K21.9 [place] [address] [address] Jan, Dysuria R30.0 and Hematuria, unspecified type R31.9 [place] [address] [address] Jan, Hematuria, unspecified type R31.9 [place] [address] [address] Dec, Hematuria, unspecified type R31.9 [place] [address] [address] Nov, Hematuria, unspecified type R31.9 [address] [place] [address] Nov, Other microscopic hematuria R31.29 [facility] [address] [address] 24 Nov, 2018 Vaginal gena B37.3 ; Other microscopi c hematuria R31.29 and Morbid obesity E66.01 [facility] [address] [address] Nov, [facility] [address] [address] Nov, [facility] [address] [place] [id number] [place] [address] Nov, UTI symptoms R39.9 and Morbi d obesity E66.01 [place] [address] [address] Nov, [place] [address] [address] September, [place] [address] [address] September, [place] [address] [address] Aug, Right foot pain M79.671 and Morbid obesi ty E66.01 [place] [address] [address] Jul, Right foot pain M79.671 and Morbid obesi ty E66.01 [facility] [address] [place] [address] Jul, Injury of right foot, initia l encounter S99.921A and Morbid obesity E66.01 [place] [address] [address] Jul, Recurrent syncope R55 and Morbid obesity E66.01 [place] [address] [address] Jul, [place] [address] [address] Jun, Hematuria, unspecified type R31.9 and BM I 50.0-59.9, adult Z68.43 [place] [address] [address] 07 Jun, [address] [place] [address] 04 Jun, 2018 assisted current use of ant icoagulant Z79.01 [facility] [address] [place] [id number] [place] [address] May, Ankle pain, right M25.571 an d BMI 50.0-59.9, adult Z68.43 [place] [address] [address] May, [place] [address] [address] May, [place] [address] [address] Apr, [place] [address] [address] Apr, [place] [address] [address] Apr, [facility] [place] [address] [address] [place] [id number] [address] [place] [address] Apr, BMI 50.0-59.9, adult Z68.43 and Weakness R53.1 [place] [address] [address] Apr, [facility] [address] [address] Apr, Dysuria R30.0 ; Hematuria R3 1.9 ; Renal lithiasis N20.0 and BMI 50.0-59.9, adult Z68.43 [place] [address] [address] Apr, [place] [address] [address] Apr, [place] [address] [address] Apr, Hypothyroidism E03.9 [place] [address] [address] Apr, Burning with urination R30.0 ; 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, without long-term current use of insulin E11.610 ; Acute bilateral low back pain without sciatica M54.5 and BMI 50.0-59.9, adult Z68.43 [place] [address] [address] 02 Mar, 2018 Hypothyroidism E03.9 [place] [address] [address] Feb, [facility] [address] [address] 15 Jan, 2018 [place] [address] [address] 07 Jan, 2018 Acute non-recurrent maxillary sinusitis J01.00 and BMI 50.0-59.9, adult Z68.[address] [address] 04 Jan, 2018 Congestion of upper respirat ory tract J98.8 and BMI 50.0-59.9, adult Z68.43 [place] [address] [address] Dec, Type 2 diabetes mellitus with diabetic n europathic arthropathy, without long-term current use of insulin E11.610 ; Morbid obesity with BMI of 50.0-59.9, adult Z68.43 ; Hypothyroidism E03.9 ; Coronary artery disease I25.10 ; Hyperlipidemia LDL goal <70 E78.5 ; Right lower quadrant abdominal pain R10.31 and Acute cystitis with hematuria N30.01 [facility] [address] [place] [address] Dec, Migraine with aura and witho ut status migrainosus, not intractable G43.109 ; Dehydration symptoms R63.8 and BMI 50.0-59.9, adult Z68.43 [place] [address] [address] Oct, [place] [address] [address] Oct, [place] [address] [address] Oct, [place] [address] [address] September, [place] [address] [address] September, Type 2 diabetes mellitus with diabetic n europathic arthropathy, without long-term current use of insulin E11.610 ; Hyperlipidemia, unspecified hyperlipidemia type E78.5 ; Personal history of pulmonary embolism Z86.711 ; Coronary artery disease I25.10 and Hypothyroidism E03.9 [place] [address] [address] September, [place] [address] [address] Aug, Type 2 diabetes mellitus with diabetic [...] without aura and with status migrainosus G43.011 [place] [address] [address] Aug, [place] [address] [address] Aug, [place] [address] [address] Jul, Renal stones N20.0 [facility] [address] [facility] [id number] [address] [place] [address] Jun, Back pain M54.9 ; Kidney sto radha N20.0 and BMI 50.0-59.9, adult Z68.43 [place] [address] [address] Jun, [place] [address] [address] Apr, [place] [address] [address] Apr, [place] [address] [address] Apr, Right foot pain M79.671 ; Acute gout inv olving toe of right foot, 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 and Arthritis M19.90 [place] [address] [address] 06 Apr, 2017 Gastroesophageal reflux disease without esophagitis K21.9 [place] [address] [address] 16 Mar, 2017 Hypothyroidism, unspecified E03.9 [place] [address] [address] Feb, [place] [address] [address] 25 Jan, 2017 Cervicalgia of lrzcazii-wvktymt-eqsuu re gion M54.2 and Persistent headaches R51 [place] [address] [address] 20 Jan, [address] [address] 12 Jan, 2017 Intractable migraine without aura and wi th status migrainosus G43.011 ; Cervical spine pain M54.2 ; Hyperlipidemia, unspecified hyperlipidemia type E78.5 ; Hypothyroidism E03.9 and Metabolic syndrome E88.81 [place] [address] [address] Jan, Hypothyroidism, unspecified E03.9 [place] [address] [address] Dec, Hypothyroidism, unspecified E03.9 [place] [address] [address] Dec, Hypothyroidism E03.9 [place] [address] [address] Nov, Laceration of left great toe w/o foreign body w/o damage to nail, initial encounter S91.112A [facility] [address] [facility] [id number] [address] [place] [address] Oct, Pain in left knee M25.562 an d Arthritis M19.90 [place] [address] [address] Oct, Hypothyroidism, unspecified E03.9 and Hy perlipidemia, unspecified hyperlipidemia type E78.[address] [address] 22 Oct, 2016 Gastroesophageal reflux disease without esophagitis K21.9 [place] [address] [address] 14 Oct, 2016 Metabolic syndrome E88.81 ; Personal his tory of pulmonary embolism Z86.711 ; Other specified hypothyroidism E03.8 and Hyperlipidemia, unspecified hyperlipidemia type E78.5 [place] [address] [address] 13 Oct, 2017 Personal history of pulmonary embolism Z 86.711 ; Dysuria R30.0 ; Metabolic syndrome E88.81 ; Other specified hypothyroidism E03.8 ; Hyperlipidemia, unspecified hyperlipidemia type E78.5 and Morbid obesity with BMI of 50.0-59.9, adult Z68.43 [place] [id number] [place] [address] September, [facility] [address] [address] September, Wrist pain, left M25.532 and Acute pain of left knee M25.562 [place] [address] [address] Jul, Dysuria R30.[address] [address] Jul, Dysuria R30.[address] [address] Jul, Left lower quadrant pain R10.[address] [address] Jul, [address] [address] Jul, Coronary artery disease I25.10 ; Family history of diabetes mellitus Z83.3 ; Morbid obesity with BMI of 50.0-59.9, adult Z68.43 ; Metabolic syndrome E88.81 ; Personal history of pulmonary embolism Z86.711 ; Gastroesophageal reflux disease without esophagitis K21.9 ; Hypothyroidism, unspecified E03.9 ; Hyperlipidemia, unspecified hyperlipidemia type E78.5 and Left lower quadrant pain R10.32 [facility] [place] [id number] [place] [address] Jul, [facility] [place] [id number] [place] [address] 08 Jul, 2016 Morbid obesity with BMI of 5 0.0-59.9, adult Z68.43 [facility] [place] [id number] [place] [address] Jul, Generalized abdominal pain R 10.84 [facility] [place] [id number] [place] [address] Jun, Muscle strain of right upper back, initial encounter S29.012A [facility] [address] [place] [id number] [place] [address] 16 May, 2016 Foreign body (FB) in soft ti ssue M79.5 [place] [address] [address] Mar, Hypothyroidism, unspecified E03.9 and Ar thritis M19.90 [place] [address] [address] 13 Feb, 2016 Coronary artery disease I25.10 ; Morbid obesity with BMI of 50.0-59.9, adult Z68.43 ; Metabolic syndrome E88.81 ; Gastroesophageal reflux disease without esophagitis K21.9 ; Hypothyroidism, unspecified E03.9 ; Personal history of pulmonary embolism Z86.711 and Hyperlipidemia, unspecified hyperlipidemia type E78.5 [place] [address] [address] Feb, [facility] [place] [address] [address] [place] [id number] [place] [address] 12 Jan, 2016 Acute right-sided thoracic b ack pain M54.6 [place] [address] [address] Jan, Acute pain of left knee M25.562 [place] [address] [address] 18 Dec, 2015 Dysuria R30.0 ; Metabolic syndrome E88.8 1 ; Acute pain of left knee M25.562 ; Acute cystitis with hematuria N30.01 and Acute left eye pain H57.12 [place] [address] [address] Dec, [place] [address] [address] Dec, [place] [address] [address] Dec, Hypothyroidism, unspecified E03.9 [place] [address] [address] Dec, [place] [address] [address] Nov, Peripheral edema R60.9 and Acute pain of left knee M25.562 [facility] [place] [address] [address] [place] [id number] [place] [address] September, [place] [address] [address] September, Metabolic syndrome E88.81 and Allergy, s ubsequent encounter T78.40XD [facility] [place] [address] [address] September, Muscle strain T14.8 [place] [address] [address] Aug, Chest pressure R07.89 ; Metabolic syndro me E88.81 ; Morbid obesity with BMI of 50.0-59.9, adult Z68.43 ; Esophageal reflux 530.81 and Shortness of breath R06.02 [place] [address] [address] Aug, [place] [address] [address] Aug, [place] [address] [address] Aug, Hypothyroidism, unspecified E03.9 [place] [address] [address] Aug, Routine health maintenance Z00.00 [facility] [place] [address] [address] [place] [id number] [place] [address] Aug, [place] [address] [address] Jul, Routine health maintenance Z00.00 ; Fami ly history of diabetes mellitus Z83.3 ; Family history of cancer Z80.9 and Morbid obesity with BMI of 50.0-59.9, adult Z68.43 [facility] [address] [place] [id number] [place] [address] 28 Jul, 2015 Allergic rhinitis J30.9 and Postnasal drip R09.82 [place] [address] [address] 18 Jul, 2015 Influenza J11.1 [facility] [address] [place] [id number] [place] [address] 08 Jul, 2015 Dysuria R30.0 [place] [address] [address] Apr, [place] [address] [address] Mar, Acute upper respiratory infection, unspe cified J06.9 and Hypothyroidism E03.9 [place] [address] [address] Mar, [place] [address] [address] Feb, Coronary artery disease I25.10 [place] [address] [address] Feb, Left foot pain M79.672 [place] [address] [address] Jan, UTI (urinary tract infection) 599.0 [place] [address] [address] Jan, Urinary tract infection, site not specif ied 599.0 [place] [address] [address] Jan, Urinary tract infection, site not specif ied 599.0 [place] [address] [address] Jan, [place] [address] [address] Dec, Headache 784.0 [facility] [address] [place] [id number] [place] [address] Dec, Urinary tract infection, site not specif ied 599.0 [facility] [address] [place] [id number] [place] [address] Dec, Urinary tract infection, site not specif ied 599.0 [facility] [address] [address] Dec, Urinary tract infection, site not specif ied 599.0 [place] [address] [address] Nov, Unspecified sleep apnea 780.57 ; Encount er for long-term (current) use of anticoagulants V58.61 ; Routine general medical examination at health care facility V70.0 and Arthritis of both knees 716.96 [place] [address] [address] September, Cat bite of hand 882.0 and Rectal bleedi ng 569.3 [place] [address] [address] Aug, [facility] [address] [address] Aug, [facility] [address] [address] Jul, [facility] [address] [address] Jul, [facility] [address] [address] Jul, [facility] [address] [address] Jul, [facility] [address] [address] Jul, [facility] [address] [address] Jul, [facility] [address] [id number] [place] [address] Jul, [facility] [address] [id number] [place] [address] Jul, [facility] [address] [id number] [place] [address] May, [facility] [address] [id number] [place] [address] May, [facility] [address] [id number] [place] [address] May, [facility] [address] [id number] [place] [address] May, [facility] [address] [id number] [place] [address] May, [facility] [address] [id number] [place] [address] May, [facility] [address] [id number] [place] [address] May, [facility] [address] [id number] [place] [address] Mar, [facility] [address] [id number] [place] [address] Mar, [facility] [address] [id number] [place] [address] 08 Sep, 2013 [facility] [address] [id number] [place] [address] 08 Sep, 2013 [facility] [address] [id number] [place] [address] 08 Sep, 2013 [facility] [address] [id number] [place] [address] 08 Sep, 2013 [facility] [address] [id number] [place] [address] 05 Sep, 2013 [facility] [address] [id number] [place] [address] Jan, [facility] [address] [id number] [place] [address] Dec, [facility] [address] [facility] [id number] [place] [address] Dec, [facility] [address] [id number] [place] [address] Dec, [facility] [address] [facility] [id number] [place] [address] Dec, [facility] [address] [facility] [id number] [place] [address] Dec, [facility] [address] [id number] [place] [address] Dec, [facility] [address] [id number] [place] [address] Dec, [facility] [address] [id number] [place] [address] Dec, [facility] [address] [facility] [id number] [place] [address] Dec, [facility] [address] [id number] [place] [address] Dec, [facility] [address] [id number] [place] [address] Nov, [facility] [address] [id number] [place] [address] Nov, [facility] [address] [facility] [id number] [place] [address] September, [facility] [address] [id number] [place] [address] September, [facility] [address] [id number] [place] [address] September, [facility] [address] [id number] [place] [address] September, [facility] [address] [facility] [id number] [place] [address] Aug, [facility] [address] [id number] [place] [address] Aug, [facility] [address] [id number] [place] [address] Aug, [facility] [address] [id number] [place] [address] Aug, [facility] [address] [id number] [place] [address] Aug, [facility] [address] [id number] [place] [address] Aug, [facility] [address] [id number] [place] [address] Aug, [facility] [address] [id number] [place] [address] Aug, [facility] [address] [id number] [place] [address] Aug, [facility] [address] [id number] [place] [address] Aug, [facility] [address] [id number] [place] [address] Aug, [facility] [address] [id number] [place] [address] Aug, [facility] [address] [id number] [place] [address] Jul, [facility] [address] [facility] [id number] [place] [address] Jul, [facility] [address] [id number] [place] [address] Jul, [facility] [address] [id number] [place] [address] Jul, [facility] [address] [id number] [place] [address] Jul, [facility] [address] [id number] [place] [address] Jul, [facility] [address] [id number] [place] [address] Jul, [facility] [address] [id number] [place] [address] Jul, [facility] [address] [id number] [place] [address] Jul, [facility] [address] [id number] [place] [address] Jul, [facility] [address] [id number] [place] [address] Jun, [facility] [address] [id number] [place] [address] Jun, [facility] [address] [id number] [place] [address] Jun, [facility] [address] [id number] [place] [address] Jun, [facility] [address] [id number] [place] [address] Jun, [facility] [address] [id number] [place] [address] Jun, [facility] [address] [id number] [place] [address] Jun, [facility] [address] [id number] [place] [address] Jun, [facility] [address] [id number] [place] [address] Jun, [facility] [address] [id number] [place] [address] Jun, [facility] [address] [id number] [place] [address] Jun, [facility] [address] [facility] [id number] [place] [address] Jun, [facility] [address] [facility] [id number] [place] [address] May, [facility] [address] [id number] [place] [address] May, [facility] [address] [id number] [place] [address] May, [facility] [address] [facility] [id number] [place] [address] May, [facility] [address] [id number] [place] [address] May, [facility] [address] [id number] [place] [address] May, [facility] [address] [id number] [place] [address] May, [facility] [address] [id number] [place] [address] May, [facility] [address] [id number] [place] [address] May, [facility] [address] [id number] [place] [address] May, [facility] [address] [id number] [place] [address] May, [facility] [address] [id number] [place] [address] May, [facility] [address] [id number] [place] [address] May, [facility] [address] [id number] [place] [address] May, [facility] [address] [id number] [place] [address] May, [facility] [address] [id number] [place] [address] Apr, [facility] [address] [id number] [place] [address] Apr, [facility] [address] [id number] [place] [address] Apr, [facility] [address] [id number] [place] [address] Apr, [facility] [address] [id number] [place] [address] Mar, [facility] [address] [id number] [place] [address] Mar, [facility] [id number] [place] [address] Mar, [facility] [address] [id number] [place] [address] Mar, [facility] [id number] [place] [address] Mar, [facility] [address] [id number] [place] [address] Mar, [facility] [id number] [place] [address] Mar, [facility] [address] [id number] [place] [address] Mar, [facility] [address] [id number] [place] [address] Mar, [facility] [address] [id number] [place] [address] Mar, [facility] [id number] [place] [address] Mar, [facility] [address] [id number] [place] [address] Mar, [facility] [address] [id number] [place] [address] Feb, [facility] [address] [id number] [facility] [place] [address] 18 Jan, 2012 [facility] [address] [id number] [facility] [place] [address] 17 Jan, 2012 [facility] [address] [facility] [id number] [place] [address] 06 Jan, 2012 [facility] [address] [id number] [place] [address] 04 Jan, 2012 [facility] [address] [facility] [id number] [facility] [place] [address] 03 Jan, 2012 [facility] [address] [id number] [facility] [place] [address] Dec, [facility] [address] [id number] [place] [address] Dec, [facility] [address] [id number] [place] [address] Dec, [facility] [address] [id number] [place] [address] Dec, [facility] [address] [id number] [place] [address] Dec, [facility] [address] [id number] [place] [address] Dec, [facility] [address] [id number] [place] [address] Dec, [facility] [address] [id number] [place] [address] Dec, [facility] [address] [id number] [place] [address] Nov, [facility] [address] [id number] [place] [address] Nov, [facility] [address] [id number] [place] [address] Nov, [facility] [address] [id number] [place] [address] Nov, [facility] [address] [id number] [place] [address] Nov, [facility] [id number] [place] [address] Nov, [facility] [address] [id number] [place] [address] Oct, [facility] [address] [id number] [id number] Oct, [facility] [address] [id number] [id number] Oct, [facility] [address] [id number] [id number] Oct, [facility] [address] [id number] [id number] Oct, [facility] [id number] [place] [address] Oct, [facility] [id number] [place] [address] Oct, [facility] [address] [id number] [place] [address] Oct, [facility] [id number] [place] [address] Oct, [facility] [address] [id number] [place] [address] Oct, [facility] [address] [id number] [place] [address] Oct, [facility] [address] [id number] [place] [address] September, [facility] [id number] [place] [address] Aug, [facility] [address] [id number] [place] [address] Aug, [facility] [address] [id number] [place] [address] Aug, [facility] [address] [id number] [place] [address] Aug, [facility] [address] [id number] [place] [address] Jul, [facility] [address] [id number] [place] [address] Jul, [facility] [address] [id number] [place] [address] Jul, [facility] [address] [id number] [place] [address] Jul, [facility] [address] [id number] [place] [address] Jul, [facility] [address] [id number] [place] [address] Jun, [facility] [address] [id number] [place] [address] Jun, [facility] [address] [id number] [place] [address] Jun, [facility] [address] [id number] [place] [address] May, [facility] [address] [id number] [place] [address] May, [facility] [address] [id number] [place] [address] May, [facility] [address] [id number] [place] [address] May, [facility] [address] [id number] [place] [address] May, [facility] [address] [id number] [place] [address] May, [facility] [address] [id number] [place] [address] Apr, [facility] [address] [id number] [place] [address] 18 Apr, 2012 [facility] [address] [id number] [place] [address] Apr, [facility] [address] [id number] [place] [address] Apr, [facility] [address] [id number] [place] [address] Apr, [facility] [address] [id number] [place] [address] Apr, [facility] [address] [id number] [place] [address] Apr, [facility] [address] [id number] [place] [address] Mar, [facility] [address] [id number] [place] [address] Mar, [facility] [address] [id number] [place] [address] Mar, [facility] [address] [id number] [place] [address] Mar, [facility] [id number] [place] [address] 18 Jan, 2012 [facility] [address] [id number] [place] [address] Jan, [facility] [id number] [place] [address] Jan, [facility] [address] [id number] [place] [address] Jan, [facility] [address] [id number] [id number] Dec, [facility] [id number] [place] [address] Dec, [facility] [address] [id number] [place] [id number] Dec, [facility] [id number] [place] [address] Dec, [facility] [address] [id number] [place] [address] Dec, [facility] [address] [id number] [place] [address] Dec, [facility] [address] [id number] [place] [address] Nov, [facility] [address] [id number] [place] [address] Nov, [facility] [address] [id number] [place] [address] Nov, IMMUNIZATIONS No Known Immunizations SOCIAL HISTORY Never Assessed REASON FOR VISIT PLAN OF CARE VITAL SIGNS MEDICATIONS Unknown Medications RESULTS No Results PROCEDURES Procedure Date Ordered Result Body Site PROTHROMBIN TIME August 15, 2013 ASSAY THYROID STIM HORMONE August 15, 2013 VENIPUNCT, ROUTINE* August 15, 2013 INSTRUCTIONS MEDICATIONS ADMINISTERED No Known Medications [...] Medical History Near syncope 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
--- OUTSIDE RECORDS SUMMARY | 2019-11-03 19:31 | XMS REPORT ---
Author Author Anca HU Organization [facility] Address [address] [place] [address] Care Team Providers Care Special Agent Secret Service Name Role Phone DAVIS HUTA Unavailable PROBLEMS Type Condition ICD9-CM Code [id number] Code Onset Dates Condition S tatus SNOMED Code Problem Generalized anxiety disorder F41.1 Apr, 200 8 Active 38720192 Problem Shortness of breath R06.02 Apr, Active 112321781 Problem Dyslipidemia E78.5 12 Oct, 2017 Active 3709 16422 Problem Unspecified hypothyroidism E03.9 Act hernesto 35438726 Problem Nonintractable migraine G43.009 08 Oct, 2015 Act hernesto [id number] Problem Esophageal reflux K21.9 Active 24 0455111 Problem Unspecified sleep apnea G47.30 Active 73785311 Problem Pre-diabetes R73.03 Active 9551641 02 Problem Morbid obesity with BMI of 50.0-59.9, adult Z68.43 Active 163140751 Problem Migraine with aura and without status migrainosu s, not intractable G43.109 Active 4592855 Problem Osteoarthritis of right knee M17.11 13 May, 201 0 Active 015141673 Problem Morbid obesity E66.01 Active 12084 6002 Problem Pulmonary embolus I26.99 13 Oct, 2011 Active 69224301 Problem Hypothyroidism E03.9 Active 19531 008 Problem Renal stones N20.0 Active 1482335 7 Problem Coronary artery disease I25.10 Active 86474207 Problem Hyperlipidemia LDL goal <70 E78.5 Ac tive 89816302 ALLERGIES Substance Reaction Event Type Date Status [...] Methylprednisolone nausea and vomiting Drug Allergy Jul, Ac tive Lipitor weaknesss, dizziness, dyspnea Drug Allergy Jul, 9 Active Phenergan hallucinations Drug Allergy Jul, Active ENCOUNTERS Encounter Location Date Diagnosis [facility] [address] [place] [address] 17 May, 2019 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 and Dizziness R42 [facility] WALK IN [facility] [address] [facility] [id number] [address] [place] [address] Apr, Non-recurrent acute suppurat hernesto otitis media of both ears without spontaneous rupture of tympanic membranes H66.003 [place] [address] [address] 08 Feb, 2019 Pre-diabetes R73.03 and Hyperlipidemia L DL goal <[address] [address] Feb, [place] [address] [address] Feb, [place] [address] [address] 30 Jan, 2019 [place] [address] [address] Jan, [address] [address] 18 Jan, 2019 Encounter for Medicare annual wellness e xam Z00.00 ; Hyperlipidemia LDL goal <70 E78.5 ; Coronary artery disease I25.10 ; Hypothyroidism E03.9 ; Osteoarthritis of right knee M17.11 ; Morbid obesity with BMI of 50.0-59.9, adult Z68.43 and Esophageal reflux K21.9 [place] [address] [address] 13 Jan, 2019 Dysuria R30.0 and Hematuria, unspecified type R31.9 [place] [address] [address] Jan, Hematuria, unspecified type R31.9 [facility] [address] [place] [id number] [place] [address] Dec, Hematuria, unspecified type R31.9 [facility] [address] [place] [id number] [place] [address] Nov, Hematuria, unspecified type R31.[address] [place] [address] Nov, Other microscopic hematuria R31.29 [facility] [address] [address] Nov, Vaginal gena B37.3 ; Other microscopi c hematuria R31.29 and Morbid obesity E66.01 [place] [address] [address] Nov, [place] [address] [address] Nov, [facility] [address] [place] [id number] [address] [place] [address] Nov, UTI symptoms R39.9 and Morbi d obesity E66.01 [place] [address] [address] Nov, [place] [address] [address] September, [place] [address] [address] September, [place] [address] [address] Aug, Right foot pain M79.671 and Morbid obesi ty E66.01 [place] [address] [address] Jul, Right foot pain M79.671 and Morbid obesi ty E66.01 [facility] [address] [facility] [id number] [address] [place] [address] Jul, Injury of right foot, initia l encounter S99.921A and Morbid obesity E66.01 [place] [address] [address] Jul, Recurrent syncope R55 and Morbid obesity E66.01 [place] [address] [address] Jul, [place] [address] [address] Jun, Hematuria, unspecified type R31.9 and BM I 50.0-59.9, adult Z68.43 [place] [address] [address] 07 Jun, 2018 [place] [address] [place] [address] 04 Jun, 2018 senior care current use of ant icoagulant Z79.01 [facility] [address] [place] [id number] [address] [place] [address] May, Ankle pain, right M25.571 an d BMI 50.0-59.9, adult Z68.43 [place] [address] [address] May, [place] [address] [address] May, [place] [address] [address] Apr, [place] [address] [address] Apr, [place] [address] [address] Apr, [facility] [address] [facility] [id number] [address] [place] [address] Apr, BMI 50.0-59.9, adult Z68.43 and Weakness R53.1 [place] [address] [address] Apr, [facility] WALK IN [place] [address] [address] Apr, Dysuria R30.0 ; Hematuria R3 1.9 ; Renal lithiasis N20.0 and BMI 50.0-59.9, adult Z68.43 [place] [address] [address] Apr, [place] [address] [address] Apr, [place] [address] [address] 05 Apr, 2018 Hypothyroidism E03.9 [place] [address] [address] 04 Apr, 2018 Burning with urination R30.0 ; 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, without long-term current use of insulin E11.610 ; Acute bilateral low back pain without sciatica M54.5 and BMI 50.0-59.9, adult Z68.43 [place] [address] [address] 02 Mar, 2018 Hypothyroidism E03.9 [place] [address] [address] Feb, [facility] WALK IN [place] [address] [address] 15 Jan, 2018 [place] [address] [address] 07 Jan, 2018 Acute non-recurrent maxillary sinusitis J01.00 and BMI 50.0-59.9, adult Z68.43 [facility] WALK IN [place] [address] [address] 04 Jan, 2018 Congestion of upper respirat ory tract J98.8 and BMI 50.0-59.9, adult Z68.43 [place] [address] [address] Dec, Type 2 diabetes mellitus with diabetic n europathic arthropathy, without long-term current use of insulin E11.610 ; Morbid obesity with BMI of 50.0-59.9, adult Z68.43 ; Hypothyroidism E03.9 ; Coronary artery disease I25.10 ; Hyperlipidemia LDL goal <70 E78.5 ; Right lower quadrant abdominal pain R10.31 and Acute cystitis with hematuria N30.01 [facility] IN [facility] [address] [facility] [id number] [address] [place] [address] Dec, Migraine with aura and witho ut status migrainosus, not intractable G43.109 ; Dehydration symptoms R63.8 and BMI 50.0-59.9, adult Z68.43 [place] [address] [address] Oct, [place] [address] [address] Oct, [place] [address] [address] Oct, [place] [address] [address] September, [place] [address] [address] September, Type 2 diabetes mellitus with diabetic n europathic arthropathy, without long-term current use of insulin E11.610 ; Hyperlipidemia, unspecified hyperlipidemia type E78.5 ; Personal history of pulmonary embolism Z86.711 ; Coronary artery disease I25.10 and Hypothyroidism E03.9 [facility] [address] [address] September, [place] [address] [address] Aug, Type 2 diabetes mellitus with diabetic [...] without aura and with status migrainosus G43.011 [place] [address] [address] Aug, [place] [address] [address] Aug, [place] [address] [address] Jul, Renal stones N20.0 [facility] WALK IN [facility] [address] [facility] [id number] [place] [address] 19 Jun, 2017 Back pain M54.9 ; Kidney sto radha N20.0 and BMI 50.0-59.9, adult Z68.43 [place] [address] [address] Jun, [place] [address] [address] Apr, [address] [address] Apr, [place] [address] [address] Apr, Right foot pain M79.671 ; Acute gout inv olving toe of right foot, 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 and Arthritis M19.90 [place] [address] [address] 06 Apr, 2017 Gastroesophageal reflux disease without esophagitis K21.[address] [address] 16 Mar, 2017 Hypothyroidism, unspecified E03.9 [place] [address] [address] 11 Feb, 2017 [place] [address] [address] 25 Jan, 2017 Cervicalgia of kdvipahz-ykprbvi-fajxt re gion M54.2 and Persistent headaches R51 [place] [address] [address] 20 Jan, 2017 [place] [address] [address] 12 Jan, 2017 Intractable migraine without aura and wi th status migrainosus G43.011 ; Cervical spine pain M54.2 ; Hyperlipidemia, unspecified hyperlipidemia type E78.5 ; Hypothyroidism E03.9 and Metabolic syndrome E88.81 [place] [address] [address] Jan, Hypothyroidism, unspecified E03.9 [place] [address] [address] Dec, Hypothyroidism, unspecified E03.9 [place] [address] [address] Dec, Hypothyroidism E03.9 [place] [address] [address] Nov, Laceration of left great toe w/o foreign body w/o damage to nail, initial encounter S91.112A [facility]ALK IN [facility] [address] [facility] [id number] [address] [place] [address] Oct, Pain in left knee M25.562 an d Arthritis M19.90 [place] [address] [address] Oct, Hypothyroidism, unspecified E03.9 and Hy perlipidemia, unspecified hyperlipidemia type E78.5 [place] [address] [address] Oct, Gastroesophageal reflux disease without esophagitis K21.9 [place] [address] [address] 14 Oct, 2016 Metabolic syndrome E88.81 ; Personal his tory of pulmonary embolism Z86.711 ; Other specified hypothyroidism E03.8 and Hyperlipidemia, unspecified hyperlipidemia type E78.5 [place] [address] [address] 13 Oct, 2017 Personal history of pulmonary embolism Z 86.711 ; Dysuria R30.0 ; Metabolic syndrome E88.81 ; Other specified hypothyroidism E03.8 ; Hyperlipidemia, unspecified hyperlipidemia type E78.5 and Morbid obesity with BMI of 50.0-59.9, adult Z68.43 [place] [address] [address] September, [facility] [place] [id number] [place] [address] September, Wrist pain, left M25.532 and Acute pain of left knee M25.[address] [address] Jul, Dysuria R30.[address] [address] Jul, Dysuria R30.[address] [address] Jul, Left lower quadrant pain R10.32 [place] [address] [address] Jul, [address] [address] Jul, Coronary artery disease I25.10 ; Family history of diabetes mellitus Z83.3 ; Morbid obesity with BMI of 50.0-59.9, adult Z68.43 ; Metabolic syndrome E88.81 ; Personal history of pulmonary embolism Z86.711 ; Gastroesophageal reflux disease without esophagitis K21.9 ; Hypothyroidism, unspecified E03.9 ; Hyperlipidemia, unspecified hyperlipidemia type E78.5 and Left lower quadrant pain R10.32 [facility] [place] [id number] [address] [place] [address] Jul, [facility] [place] [id number] [place] [address] 08 Jul, 2016 Morbid obesity with BMI of 5 0.0-59.9, adult Z68.43 [facility] [address] [address] 07 Jul, 2016 Generalized abdominal pain R 10.84 [facility] [address] [address] Jun, Muscle strain of right upper back, initial encounter S29.012A [facility] [address] [address] May, Foreign body (FB) in soft ti ssue M79.[address] [address] Mar, Hypothyroidism, unspecified E03.9 and Ar thritis M19.[address] [address] Feb, Coronary artery disease I25.10 ; Morbid obesity with BMI of 50.0-59.9, adult Z68.43 ; Metabolic syndrome E88.81 ; Gastroesophageal reflux disease without esophagitis K21.9 ; Hypothyroidism, unspecified E03.9 ; Personal history of pulmonary embolism Z86.711 and Hyperlipidemia, unspecified hyperlipidemia type E78.[address] [address] Feb, [facility] WALK IN [address] [address] Jan, Acute right-sided thoracic b ack pain M54.[address] [address] Jan, Acute pain of left knee M25.[address] [address] Dec, Dysuria R30.0 ; Metabolic syndrome E88.8 1 ; Acute pain of left knee M25.562 ; Acute cystitis with hematuria N30.01 and Acute left eye pain H57.12 [place] [address] [address] Dec, [place] [address] [address] Dec, [place] [address] [address] Dec, Hypothyroidism, unspecified E03.9 [place] [address] [address] Dec, [place] [address] [address] Nov, Peripheral edema R60.9 and Acute pain of left knee M25.562 [facility] WALK IN [place] [address] [address] September, [place] [address] [address] September, Metabolic syndrome E88.81 and Allergy, s ubsequent encounter T78.40XD [facility] WALK IN [address] [address] September, Muscle strain T14.8 [place] [address] [address] Aug, Chest pressure R07.89 ; Metabolic syndro me E88.81 ; Morbid obesity with BMI of 50.0-59.9, adult Z68.43 ; Esophageal reflux 530.81 and Shortness of breath R06.02 [place] [address] [address] Aug, [place] [address] [address] Aug, [place] [address] [address] Aug, Hypothyroidism, unspecified E03.9 [place] [address] [address] 04 Aug, 2015 Routine health maintenance Z00.00 [facility] WALK IN [address] [address] Aug, [place] [address] [address] Jul, Routine health maintenance Z00.00 ; Fami ly history of diabetes mellitus Z83.3 ; Family history of cancer Z80.9 and Morbid obesity with BMI of 50.0-59.9, adult Z68.43 [facility] IN [address] [address] Jul, Allergic rhinitis J30.9 and Postnasal drip R09.[address] [address] Jul, Influenza J11.1 [facility] IN [address] [address] Jul, Dysuria R30.[address] [address] Apr, [address] [address] Mar, Acute upper respiratory infection, unspe cified J06.9 and Hypothyroidism E03.[address] [address] Mar, [address] [address] Feb, Coronary artery disease I25.[address] [address] 16 Feb, 2015 Left foot pain M79.[address] [address] Jan, UTI (urinary tract infection) 599.0 [place] [address] [place] [address] Jan, Urinary tract infection, site not specif ied 599.0 [facility] [address] [address] Jan, Urinary tract infection, site not specif ied 599.0 [place] [address] [address] Jan, [place] [address] [address] Dec, Headache 784.0 [place] [address] [address] Dec, Urinary tract infection, site not specif ied 599.0 [place] [address] [address] Dec, Urinary tract infection, site not specif ied 599.0 [place] [address] [address] Dec, Urinary tract infection, site not specif ied 599.0 [place] [address] [address] Nov, Unspecified sleep apnea 780.57 ; Encount er for long-term (current) use of anticoagulants V58.61 ; Routine general medical examination at health care facility V70.0 and Arthritis of both knees 716.96 [place] [address] [address] September, Cat bite of hand 882.0 and Rectal bleedi ng 569.3 [place] [address] [address] Aug, [place] [address] [address] Aug, [place] [address] [address] Jul, [place] [address] [address] Jul, [facility] [address] [facility] [id number] [place] [address] Jul, [facility] [address] [id number] [place] [address] Jul, [facility] [address] [id number] [place] [address] Jul, [facility] [address] [id number] [place] [address] Jul, [facility] [address] [id number] [place] [address] Jul, [facility] [address] [id number] [place] [address] Jul, [facility] [address] [id number] [place] [address] May, [facility] [address] [id number] [place] [address] May, [facility] [address] [id number] [place] [address] May, [facility] [address] [id number] [place] [address] May, [facility] [address] [id number] [place] [address] May, [facility] [address] [id number] [place] [address] May, [facility] [address] [id number] [place] [address] May, [facility] [address] [id number] [place] [address] Mar, [facility] [address] [id number] [place] [address] Mar, [facility] [address] [id number] [place] [address] Jan, [facility] [address] [id number] [place] [address] 08 Jan, 2013 [facility] [address] [facility] [id number] [place] [address] 08 Jan, 2013 [facility] [address] [facility] [id number] [place] [address] Jan, 2013 [facility] [address] [facility] [id number] [place] [address] Jan, 2013 [facility] [address] [facility] [id number] [place] [address] Jan, 2013 [facility] [address] [facility] [id number] [place] [address] Dec, [facility] [address] [id number] [place] [address] Dec, [facility] [address] [id number] [place] [address] Dec, [facility] [address] [id number] [place] [address] Dec, [facility] [address] [facility] [id number] [place] [address] Dec, [facility] [address] [id number] [place] [address] Dec, [facility] [address] [id number] [place] [address] Dec, [facility] [address] [facility] [id number] [place] [address] Dec, [facility] [address] [facility] [id number] [place] [address] Dec, [facility] [address] [id number] [place] [address] Dec, [facility] [address] [facility] [id number] [place] [address] Nov, [facility] [address] [id number] [place] [address] Nov, [facility] [address] [id number] [place] [address] September, [facility] [address] [id number] [place] [address] September, [facility] [address] [id number] [place] [address] September, [facility] [address] [id number] [place] [address] September, [facility] [address] [facility] [id number] [place] [address] Aug, [facility] [address] [id number] [place] [address] Aug, [facility] [address] [id number] [place] [address] Aug, [facility] [address] [id number] [place] [address] Aug, [facility] [address] [id number] [place] [address] Aug, [facility] [address] [id number] [place] [address] Aug, [facility] [address] [id number] [place] [address] Aug, [facility] [address] [id number] [place] [address] Aug, [facility] [address] [id number] [place] [address] Aug, [facility] [address] [id number] [place] [address] Aug, [facility] [address] [id number] [place] [address] Aug, [facility] [address] [id number] [place] [address] Aug, [facility] [address] [id number] [place] [address] Jul, [facility] [address] [facility] [id number] [place] [address] Jul, [facility] [address] [facility] [id number] [place] [address] Jul, [facility] [address] [id number] [place] [address] Jul, [facility] [address] [id number] [place] [address] Jul, [facility] [address] [facility] [id number] [place] [address] Jul, [facility] [address] [id number] [place] [address] Jul, [facility] [address] [id number] [place] [address] Jul, [facility] [address] [id number] [place] [address] Jul, [facility] [address] [id number] [place] [address] Jul, [facility] [address] [id number] [place] [address] Jun, [facility] [address] [id number] [place] [address] Jun, [facility] [address] [id number] [place] [address] Jun, [facility] [address] [facility] [id number] [place] [address] Jun, [facility] [address] [id number] [place] [address] Jun, [facility] [address] [id number] [place] [address] Jun, [facility] [address] [id number] [place] [address] Jun, [facility] [address] [id number] [place] [address] Jun, [facility] [address] [id number] [place] [address] Jun, [facility] [address] [id number] [place] [address] Jun, [facility] [address] [id number] [place] [address] Jun, [facility] [address] [facility] [id number] [place] [address] Jun, [facility] [address] [id number] [place] [address] May, [facility] [address] [id number] [place] [address] May, [facility] [address] [id number] [place] [address] May, [facility] [address] [id number] [place] [address] May, [facility] [address] [id number] [place] [address] May, [facility] [address] [id number] [place] [address] May, [facility] [address] [id number] [place] [address] May, [facility] [address] [id number] [place] [address] May, [facility] [address] [id number] [place] [address] May, [facility] [address] [id number] [place] [address] May, [facility] [address] [id number] [place] [address] May, [facility] [address] [id number] [place] [address] 08 May, 2013 [facility] [address] [id number] [place] [address] May, [facility] [address] [id number] [place] [address] May, [facility] [address] [id number] [place] [address] May, [facility] [address] [id number] [place] [address] Apr, [facility] [address] [id number] [place] [address] Apr, [facility] [address] [id number] [place] [address] Apr, [facility] [address] [id number] [place] [address] Apr, [facility] [address] [id number] [place] [address] Mar, [facility] [address] [id number] [place] [address] Mar, [facility] [address] [id number] [place] [address] Mar, [facility] [address] [id number] [place] [address] Mar, [facility] [address] [id number] [place] [address] Mar, [facility] [address] [id number] [place] [address] Mar, [facility] [id number] [place] [address] Mar, [facility] [address] [id number] [place] [address] Mar, [facility] [address] [id number] [place] [address] Mar, [facility] [id number] [place] [address] Mar, [facility] [address] [id number] [place] [address] Mar, [facility] [address] [id number] [place] [address] Mar, [facility] [address] [id number] [place] [address] Feb, [facility] [address] [id number] [place] [address] 18 Jan, 2013 [facility] [address] [id number] [place] [address] 17 Jan, 2013 [facility] [address] [id number] [place] [address] Jan, [facility] [address] [id number] [place] [address] Jan, [facility] [address] [id number] [place] [address] Jan, [facility] [address] [id number] [place] [address] Dec, [facility] [address] [id number] [place] [address] Dec, [facility] [address] [id number] [place] [address] Dec, [facility] [address] [id number] [place] [address] 16 Dec, 2012 [facility] [address] [id number] [place] [address] Dec, [facility] [address] [id number] [place] [address] Dec, [facility] [address] [id number] [place] [address] Dec, [facility] [address] [id number] [place] [address] Dec, [facility] [address] [id number] [place] [address] Nov, [facility] [address] [id number] [place] [address] Nov, [facility] [address] [id number] [place] [address] Nov, [facility] [address] [id number] [place] [address] Nov, [facility] [address] [id number] [place] [address] Nov, [facility] [address] [id number] [place] [address] Nov, [facility] [address] [id number] [place] [address] Oct, [facility] [id number] [id number] Oct, [facility] [address] [id number] [id number] Oct, [facility] [address] [id number] [id number] Oct, [facility] [address] [id number] [id number] Oct, [facility] [address] [id number] [place] [address] Oct, [facility] [address] [id number] [place] [address] Oct, [facility] [address] [id number] [place] [address] Oct, [facility] [address] [id number] [place] [address] Oct, [facility] [address] [id number] [place] [address] Oct, [facility] [address] [id number] [place] [address] Oct, [facility] [address] [id number] [place] [address] September, [facility] [address] [id number] [place] [address] Aug, [facility] [address] [id number] [place] [address] Aug, [facility] [address] [id number] [place] [address] Aug, [facility] [address] [id number] [place] [address] Aug, [facility] [address] [id number] [place] [address] Jul, [facility] [address] [id number] [place] [address] Jul, [facility] [address] [id number] [place] [address] Jul, [facility] [address] [id number] [place] [address] Jul, [facility] [address] [id number] [place] [address] Jul, [facility] [address] [id number] [place] [address] Jun, [facility] [address] [id number] [place] [address] Jun, [facility] [address] [id number] [place] [address] Jun, [facility] [address] [id number] [place] [address] May, [facility] [address] [id number] [place] [address] 24 May, 2012 [facility] [address] [id number] [place] [address] May, [facility] [address] [id number] [place] [address] May, [facility] [address] [facility] [id number] [place] [address] May, [facility] [address] [id number] [place] [address] May, [facility] [address] [id number] [place] [address] 18 Apr, 2012 [facility] [address] [id number] [place] [address] 18 Apr, 2012 [facility] [address] [id number] [place] [address] Apr, [facility] [address] [id number] [place] [address] Apr, [facility] [address] [id number] [place] [address] Apr, [facility] [address] [id number] [place] [address] Apr, [facility] [address] [id number] [place] [address] Apr, [facility] [address] [id number] [place] [address] Mar, [facility] [address] [id number] [place] [address] Mar, [facility] [address] [id number] [place] [address] Mar, [facility] [address] [id number] [place] [address] Mar, [facility] [address] [id number] [place] [address] 18 Jan, 2012 [facility] [address] [id number] [place] [address] 10 Jan, 2012 [facility] [address] [id number] [place] [address] 06 Jan, 2012 [facility] [id number] [place] [address] Jan, [facility] [address] [id number] [place] [id number] Dec[facility] [address] [address] Dec, [facility] [address] [id number] [place] [id number] Dec, [facility] [address] [address] Dec, [facility] [address] [address] Dec, [facility] [address] [address] Dec, [facility] [address] [address] Nov, [facility] [address] [address] Nov, [facility] [address] [address] Nov, IMMUNIZATIONS No Known Immunizations SOCIAL HISTORY Never Assessed REASON FOR VISIT ER f/u fractured her right foot, has a boot [facility] PLAN OF CARE Activity Details Follow Up 4 weeks Reason:right foot pa in VITAL SIGNS Height 64 in 2018-07-28 Weight 297 lbs 2018-07-28 Temperature 98.2 degrees Fahrenheit 2018-07-28 Heart Rate 66 bpm 2018-07-28 Respiratory Rate 18 2018-07-28 Oximetry 97 % 2018-07-28 BMI 50.97 kg/m2 2018-07-28 Blood pressure systolic 112 mmHg 2018-07-28 Blood pressure diastolic 68 mmHg 2018-07-28 MEDICATIONS Medication Instructions Dosage Frequency Start Date End Date Duration S tatus Plavix 75 MG Orally Once a day 1 tablet 24h Active Nitroglycerin 0.4 MG/HR Transdermal Once a day 1 patch to sk in remove after 12 hours 24h Active Tylenol Extra Strength 500 MG Nov, Active Hydrocodone-Acetaminophen 5-325 MG Orally every 6 hrs 1 tablet as n eeded 6h Apr, Active Omeprazole 20 MG TAKE ONE CAPSULE BY MOUTH ONCE DAILY 30 Active Aspirin Adult Low Dose 81 MG Orally Once a day 1 tablet 24h Active Hydrocodone-Acetaminophen 5-325 MG Orally every 6 hrs 1 tablet as n eeded 6h Jul, 14 days Active Albuterol Sulfate 90 mcg/actuation Inhalation every 4 hrs in raman 1 puff by inhalation route every 4 hours as needed 4h Jun, 30 days Active Albuterol Sulfate 2.5 mg /3 mL (0.083 %) 1 Each by Inhalation route every 4 hours for cough and wheezePRNfor wheezing or cough Nov, Active Pravastatin Sodium 20 MG Orally Once a day 1 tablet 24h Active Levothyroxine Sodium 150 MCG TAKE ONE TA BLET BY MOUTH ONCE DAILY IN THE MORNING ON AN EMPTY STOMACH 30 days Active RESULTS No Results PROCEDURES Procedure Date Ordered Result Body Site [facility] VISIT ESTABLISHED PATIENT July 28, 2018 INSTRUCTIONS MEDICATIONS ADMINISTERED No Known Medications [...]
--- OUTSIDE RECORDS SUMMARY | 2019-11-03 19:31 | XMS REPORT ---
Author Author Anca Lucero Doctor Organization [facility] Address Unknown Phone Unavailable Care Team Providers Care Software Support Representative Name Role Phone Migration, Doctor Unavailable Unavailable PROBLEMS Type Condition ICD9-CM Code [id number] Code Onset Dates Condition S tatus SNOMED Code Problem Generalized anxiety disorder F41.1 Apr, 200 8 Active 54199611 Problem Shortness of breath R06.02 23 Apr, 2008 Active 617708130 Problem Dyslipidemia E78.5 12 Oct, 2017 Active 3709 30468 Problem Unspecified hypothyroidism E03.9 Act hernesto 69694202 Problem Nonintractable migraine G43.009 08 Oct, 2015 Act hernesto 306568604 Problem Esophageal reflux K21.9 Active 24 3726867 Problem Unspecified sleep apnea G47.30 Active 87309219 Problem Pre-diabetes R73.03 Active 2198511 02 Problem Morbid obesity with BMI of 50.0-59.9, adult Z68.43 Active 612891592 Problem Migraine with aura and without status migrainosu s, not intractable G43.109 Active 5324939 Problem Osteoarthritis of right knee M17.11 13 May, 201 0 Active 912952961 Problem Morbid obesity E66.01 Active 28297 6002 Problem Pulmonary embolus I26.99 13 Oct, 2011 Active 19516855 Problem Hypothyroidism E03.9 Active 13784 008 Problem Renal stones N20.0 Active 9237792 7 Problem Coronary artery disease I25.10 Active 14065787 Problem Hyperlipidemia LDL goal <70 E78.5 Ac tive [id number] ALLERGIES No Information ENCOUNTERS Encounter Location Date Diagnosis [facility] [address] [facility] [id number] [address] [place] [address] Apr, Non-recurrent acute suppurat hernesto otitis media of both ears without spontaneous rupture of tympanic membranes H66.003 [facility] [address] [facility] [id number] [place] [address] Feb, Pre-diabetes R73.03 and Hyperlipidemia L DL goal <70 E78.5 [place] [address] [address] Feb, [place] [address] [address] Feb, [place] [address] [address] Jan, [place] [address] [address] Jan, [place] [address] [address] Jan, Encounter for Medicare annual wellness e xam Z00.00 ; Hyperlipidemia LDL goal <70 E78.5 ; Coronary artery disease I25.10 ; Hypothyroidism E03.9 ; Osteoarthritis of right knee M17.11 ; Morbid obesity with BMI of 50.0-59.9, adult Z68.43 and Esophageal reflux K21.9 [place] [address] [address] Jan, Dysuria R30.0 and Hematuria, unspecified type R31.9 [place] [address] [address] Jan, Hematuria, unspecified type R31.9 [place] [address] [address] Dec, Hematuria, unspecified type R31.9 [place] [address] [address] Nov, Hematuria, unspecified type R31.[address] [place] [address] Nov, Other microscopic hematuria R31.29 [place] [address] [address] Nov, Vaginal gena B37.3 ; Other microscopi c hematuria R31.29 and Morbid obesity E66.01 [place] [address] [address] Nov, [facility] [address] [address] Nov, [facility] [address] [place] [id number] [address] [address] Nov, UTI symptoms R39.9 and Morbi d obesity E66.01 [facility] [address] [address] Nov, [facility] [address] [address] September, [place] [address] [address] September, [place] [address] [address] Aug, Right foot pain M79.671 and Morbid obesi ty E66.01 [place] [address] [address] Jul, Right foot pain M79.671 and Morbid obesi ty E66.01 [facility] [address] [facility] [id number] [address] [place] [address] Jul, Injury of right foot, initia l encounter S99.921A and Morbid obesity E66.01 [place] [address] [place] [id number] [place] [address] Jul, Recurrent syncope R55 and Morbid obesity E66.01 [place] [address] [address] Jul, [place] [address] [address] Jun, Hematuria, unspecified type R31.9 and BM I 50.0-59.9, adult Z68.43 [place] [address] [place] [id number] [place] [address] Jun, [place] [address] [place] [address] Jun, rn long term care current use of ant icoagulant Z79.01 [facility] [address] [place] [id number] [address] [place] [address] May, Ankle pain, right M25.571 an d BMI 50.0-59.9, adult Z68.43 [place] [address] [address] May, [place] [address] [address] May, [place] [address] [address] Apr, [place] [address] [address] Apr, [place] [address] [address] Apr, [facility] [place] [address] [place] [id number] [address] [place] [address] Apr, BMI 50.0-59.9, adult Z68.43 and Weakness R53.1 [place] [address] [address] Apr, [facility] [place] [address] [place] [id number] [address] [place] [address] Apr, Dysuria R30.0 ; Hematuria R3 1.9 ; Renal lithiasis N20.0 and BMI 50.0-59.9, adult Z68.43 [place] [address] [address] Apr, [address] [address] Apr, [place] [address] [address] Apr, Hypothyroidism E03.9 [place] [address] [address] Apr, Burning with urination R30.0 ; 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, 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 ; Acute bilateral low back pain without sciatica M54.5 and BMI 50.0-59.9, adult Z68.43 [place] [address] [address] Mar, Hypothyroidism E03.9 [place] [address] [address] Feb, [facility] IN [place] [address] [address] Jan, [place] [address] [address] Jan, Acute non-recurrent maxillary sinusitis J01.00 and BMI 50.0-59.9, adult Z68.43 [facility] [place] [address] [address] Jan, Congestion of upper respirat ory tract J98.8 and BMI 50.0-59.9, adult Z68.43 [place] [address] [address] Dec, Type 2 diabetes mellitus with diabetic n europathic arthropathy, without long-term current use of insulin E11.610 ; Morbid obesity with BMI of 50.0-59.9, adult Z68.43 ; Hypothyroidism E03.9 ; Coronary artery disease I25.10 ; Hyperlipidemia LDL goal <70 E78.5 ; Right lower quadrant abdominal pain R10.31 and Acute cystitis with hematuria N30.01 [facility] [place] [address] [address] Dec, Migraine with aura and witho ut status migrainosus, not intractable G43.109 ; Dehydration symptoms R63.8 and BMI 50.0-59.9, adult Z68.43 [place] [address] [address] Oct, [place] [address] [address] Oct, [place] [address] [address] Oct, [place] [address] [address] September, [place] [address] [place] [id number] September, Type 2 diabetes mellitus with diabetic n europathic arthropathy, without long-term current use of insulin E11.610 ; Hyperlipidemia, unspecified hyperlipidemia type E78.5 ; Personal history of pulmonary embolism Z86.711 ; Coronary artery disease I25.10 and Hypothyroidism E03.9 [place] [address] [address] September, [place] [address] [address] Aug, Type 2 diabetes mellitus with diabetic [...] without aura and with status migrainosus G43.011 [place] [address] [address] Aug, [place] [address] [address] Aug, [place] [address] [address] Jul, Renal stones N20.0 [facility] [address] [facility] [id number] [address] [place] [address] Jun, Back pain M54.9 ; Kidney sto radha N20.0 and BMI 50.0-59.9, adult Z68.43 [place] [address] [address] Jun, [place] [address] [address] Apr, [place] [address] [address] Apr, [place] [address] [address] Apr, Right foot pain M79.671 ; Acute gout inv olving toe of right foot, 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 and Arthritis M19.90 [place] [address] [address] 06 Apr, 2017 Gastroesophageal reflux disease without esophagitis K21.9 [place] [address] [address] 16 Mar, 2017 Hypothyroidism, unspecified E03.9 [place] [address] [address] Feb, [address] [address] 25 Jan, 2017 Cervicalgia of zvbunyyi-rjvlxgv-oznfo re gion M54.2 and Persistent headaches R51 [address] [address] Jan, [address] [address] 12 Jan, 2017 Intractable migraine without aura and wi th status migrainosus G43.011 ; Cervical spine pain M54.2 ; Hyperlipidemia, unspecified hyperlipidemia type E78.5 ; Hypothyroidism E03.9 and Metabolic syndrome E88.81 [place] [address] [address] 11 Jan, 2017 Hypothyroidism, unspecified E03.9 [place] [address] [address] Dec, Hypothyroidism, unspecified E03.9 [place] [address] [address] Dec, Hypothyroidism E03.9 [place] [address] [address] Nov, Laceration of left great toe w/o foreign body w/o damage to nail, initial encounter S91.112A [facility] [address] [place], [place] [id number] [address] [place] [address] Oct, Pain in left knee M25.562 an d Arthritis M19.[address] [address] Oct, Hypothyroidism, unspecified E03.9 and Hy perlipidemia, unspecified hyperlipidemia type E78.[address] [address] Oct, Gastroesophageal reflux disease without esophagitis K21.[address] [address] 14 Oct, 2016 Metabolic syndrome E88.81 ; Personal his tory of pulmonary embolism Z86.711 ; Other specified hypothyroidism E03.8 and Hyperlipidemia, unspecified hyperlipidemia type E78.[address] [address] 13 Oct, 2016 Personal history of pulmonary embolism Z 86.711 ; Dysuria R30.0 ; Metabolic syndrome E88.81 ; Other specified hypothyroidism E03.8 ; Hyperlipidemia, unspecified hyperlipidemia type E78.5 and Morbid obesity with BMI of 50.0-59.9, adult Z68.[address] [address] September, [facility] [address] [place], [place] [id number] [address] [place] [address] September, Wrist pain, left M25.532 and Acute pain of left knee M25.[address] [id number] [place] [address] Jul, Dysuria R30.0 [place] [address] [address] Jul, Dysuria R30.0 [place] [address] [address] Jul, Left lower quadrant pain R10.32 [place] [address] [address] 14 Jul, 2016 [place] [address] [address] Jul, Coronary artery disease I25.10 ; Family history of diabetes mellitus Z83.3 ; Morbid obesity with BMI of 50.0-59.9, adult Z68.43 ; Metabolic syndrome E88.81 ; Personal history of pulmonary embolism Z86.711 ; Gastroesophageal reflux disease without esophagitis K21.9 ; Hypothyroidism, unspecified E03.9 ; Hyperlipidemia, unspecified hyperlipidemia type E78.5 and Left lower quadrant pain R10.32 [facility] [address] [address] Jul, [facility] [address] [address] Jul, Morbid obesity with BMI of 5 0.0-59.9, adult Z68.43 [facility] [place] [id number] [address] [place] [address] Jul, Generalized abdominal pain R 10.84 [facility] [place] [id number] [address] [place] [address] Jun, Muscle strain of right upper back, initial encounter S29.012A [facility] [address] [address] May, Foreign body (FB) in soft ti ssue M79.[address] [address] Mar, Hypothyroidism, unspecified E03.9 and Ar thritis M19.90 [place] [address] [address] Feb, Coronary artery disease I25.10 ; Morbid obesity with BMI of 50.0-59.9, adult Z68.43 ; Metabolic syndrome E88.81 ; Gastroesophageal reflux disease without esophagitis K21.9 ; Hypothyroidism, unspecified E03.9 ; Personal history of pulmonary embolism Z86.711 and Hyperlipidemia, unspecified hyperlipidemia type E78.5 [place] [address] [address] Feb, [facility] [place] [address] [facility] [id number] [address] [place] [address] Jan, Acute right-sided thoracic b ack pain M54.[address] [address] Jan, Acute pain of left knee M25.562 [place] [address] [address] Dec, Dysuria R30.0 ; Metabolic syndrome E88.8 1 ; Acute pain of left knee M25.562 ; Acute cystitis with hematuria N30.01 and Acute left eye pain H57.12 [place] [address] [address] Dec, [place] [address] [address] Dec, [place] [address] [address] Dec, Hypothyroidism, unspecified E03.9 [place] [address] [address] Dec, [place] [address] [address] Nov, Peripheral edema R60.9 and Acute pain of left knee M25.562 [facility] [place] [address] [place] [address] September, [place] [address] [address] September, Metabolic syndrome E88.81 and Allergy, s ubsequent encounter T78.40XD [facility] [place] [address] [address] September, Muscle strain T14.8 [place] [address] [address] Aug, Chest pressure R07.89 ; Metabolic syndro me E88.81 ; Morbid obesity with BMI of 50.0-59.9, adult Z68.43 ; Esophageal reflux 530.81 and Shortness of breath R06.02 [place] [address] [address] Aug, [place] [address] [address] Aug, [place] [address] [address] Aug, Hypothyroidism, unspecified E03.9 [place] [address] [address] Aug, Routine health maintenance Z00.00 [facility] [place] [address] [address] Aug, [place] [address] [address] Jul, Routine health maintenance Z00.00 ; Fami ly history of diabetes mellitus Z83.3 ; Family history of cancer Z80.9 and Morbid obesity with BMI of 50.0-59.9, adult Z68.43 [facility] [place] [address] [address] [place] [id number] [place] [address] Jul, Allergic rhinitis J30.9 and Postnasal drip R09.82 [address] [place] [address] 18 Jul, 2015 Influenza J11.1 [facility] [address] [facility] [id number] [address] [place] [address] 08 Jul, 2015 Dysuria R30.0 [facility] [address] [place] [id number] [place] [address] Apr, [facility] [address] [address] Mar, Acute upper respiratory infection, unspe cified J06.9 and Hypothyroidism E03.9 [facility] [address] [address] Mar, [facility] [address] [address] Feb, Coronary artery disease I25.10 [place] [address] [address] Feb, Left foot pain M79.672 [facility] [address] [address] Jan, UTI (urinary tract infection) 599.0 [place] [address] [address] Jan, Urinary tract infection, site not specif ied 599.0 [place] [address] [address] Jan, Urinary tract infection, site not specif ied 599.0 [facility] [address] [address] Jan, [facility] [address] [address] Dec, Headache 784.0 [facility] [address] [address] Dec, Urinary tract infection, site not specif ied 599.0 [facility] [address] [address] Dec, Urinary tract infection, site not specif ied 599.0 [facility] [address] [place] [id number] [place] [address] Dec, Urinary tract infection, site not specif ied 599.0 [facility] [address] [place] [id number] [place] [address] Nov, Unspecified sleep apnea 780.57 ; Encount er for long-term (current) use of anticoagulants V58.61 ; Routine general medical examination at [facility] care facility V70.0 and Arthritis of both knees 716.96 [facility] [address] [place] [id number] [place] [address] September, Cat bite of hand 882.0 and Rectal bleedi ng 569.3 [facility] [address] [place] [address] [place] [address] Aug, [facility] [address] [place] [id number] [place] [address] Aug, [facility] [address] [place] [address] [place] [address] Jul, [facility] [address] [address] Jul, [facility] [address] [address] Jul, [facility] [address] [place] [address] [place] [address] Jul, [facility] [address] [place] [id number] [place] [address] Jul, [facility] [address] [place] [address] [place] [address] Jul, [facility] [address] [place] [address] [place] [address] Jul, [facility] [address] [place] [address] [place] [address] Jul, [facility] [address] [place] [id number] [place] [address] May, [facility] [place] [facility] [address] [id number] [place] [address] May, [facility] [place] [facility] [address] [id number] [place] [address] May, [facility] [place] [facility] [address] [id number] [place] [address] May, [facility] [place] [facility] [address] [id number] [place] [address] May, [facility] [place] [facility] [address] [id number] [place] [address] May, [facility] [place] [facility] [address] [id number] [place] [address] May, [facility] [place] [facility] [address] [id number] [place] [address] Mar, [facility] [place] [facility] [address] [id number] [place] [address] Mar, [facility] [place] [facility] [address] [id number] [place] [address] 08 Sep, 2013 [facility] [place] [facility] [address] [id number] [place] [address] 08 Jan, 2013 [facility] [place] [facility] [address] [id number] [place] [address] 08 Jan, 2013 [facility] [place] [facility] [address] [id number] [place] [address] 08 Sep, 2013 [facility] [place] [facility] [address] [id number] [place] [address] 05 Sep, 2013 [facility] [place] [facility] [address] [id number] [place] [address] 05 Jan, 2013 [facility] [place] [facility] [address] [id number] [place] [address] Dec, [facility] [place] [facility] [address] [id number] [place] [address] Dec, [facility] [place] [facility] [address] [id number] [place] [address] Dec, [facility] [place] [facility] [address] [facility] [id number] [place] [address] Dec, [facility] [place] [facility] [address] [facility] [id number] [place] [address] Dec, [facility] [place] [facility] [address] [id number] [place] [address] Dec, [facility] [place] [facility] [address] [facility] [id number] [place] [address] Dec, [facility] [place] [facility] [address] [id number] [place] [address] Dec, [facility] [place] [facility] [address] [id number] [place] [address] Dec, [facility] [place] [facility] [address] [id number] [place] [address] Dec, [facility] [place] [facility] [address] [id number] [place] [address] Nov, [facility] [place] [facility] [address] [id number] [place] [address] Nov, [facility] [place] [facility] [address] [id number] [place] [address] September, [facility] [place] [facility] [address] [id number] [place] [address] September, [facility] [place] [facility] [address] [id number] [place] [address] September, [facility] [place] [facility] [address] [facility] [id number] [place] [address] September, [facility] [place] [facility] [address] [id number] [place] [address] Aug, [facility] [place] [facility] [address] [id number] [place] [address] Aug, [facility] [place] [facility] [address] [id number] [place] [address] Aug, [facility] [place] [facility] [address] [facility] [id number] [place] [address] Aug, [facility] [place] [facility] [address] [id number] [place] [address] Aug, [facility] [place] [facility] [address] [id number] [place] [address] Aug, [facility] [place] [facility] [address] [id number] [place] [address] Aug, [facility] [place] [facility] [address] [id number] [place] [address] Aug, [facility] [place] [facility] [address] [id number] [place] [address] Aug, [facility] [place] [facility] [address] [id number] [place] [address] Aug, [facility] [place] [facility] [address] [id number] [place] [address] Aug, [facility] [address] [id number] [place] [address] Aug, [facility] [address] [id number] [place] [address] Jul, [facility] [address] [id number] [place] [address] Jul, [facility] [address] [id number] [place] [address] Jul, [facility] [address] [id number] [place] [address] Jul, [facility] [address] [id number] [place] [address] Jul, [facility] [address] [id number] [place] [address] Jul, [facility] [address] [id number] [place] [address] Jul, [facility] [address] [id number] [place] [address] Jul, [facility] [address] [facility] [id number] [place] [address] Jul, [facility] [address] [id number] [place] [address] Jul, [facility] [address] [id number] [place] [address] Jun, [facility] [address] [id number] [place] [address] Jun, [facility] [address] [id number] [place] [address] Jun, [facility] [address] [id number] [place] [address] Jun, [facility] [address] [id number] [place] [address] Jun, [facility] [address] [id number] [place] [address] Jun, [facility] [address] [id number] [place] [address] Jun, [facility] [address] [id number] [place] [address] Jun, [facility] [address] [id number] [place] [address] Jun, [facility] [address] [id number] [place] [address] Jun, [facility] [address] [id number] [place] [address] Jun, [facility] [address] [id number] [place] [address] Jun, [facility] [address] [id number] [place] [address] May, [facility] [address] [id number] [place] [address] May, [facility] [address] [facility] [id number] [place] [address] May, [facility] [address] [id number] [place] [address] May, [facility] [address] [id number] [place] [address] May, [facility] [address] [id number] [place] [address] May, [facility] [address] [id number] [place] [address] May, [facility] [address] [id number] [place] [address] May, [facility] [address] [id number] [place] [address] May, [facility] [address] [id number] [place] [address] May, [facility] [address] [id number] [place] [address] May, [facility] [address] [id number] [place] [address] May, [facility] [address] [id number] [place] [address] May, [facility] [address] [id number] [place] [address] May, [facility] [address] [id number] [place] [address] May, [facility] [address] [id number] [place] [address] Apr, [facility] [address] [id number] [place] [address] Apr, [facility] [address] [id number] [place] [address] Apr, [facility] [address] [id number] [place] [address] Apr, [facility] [address] [id number] [place] [address] Mar, [facility] [address] [id number] [place] [address] Mar, [facility] [address] [id number] [place] [address] Mar, [facility] [address] [id number] [place] [address] Mar, [facility] [address] [id number] [place] [address] Mar, [facility] [address] [id number] [place] [address] Mar, [facility] [address] [id number] [place] [address] Mar, [facility] [address] [id number] [place] [address] Mar, [facility] [address] [id number] [place] [address] Mar, [facility] [address] [id number] [place] [address] Mar, [facility] [address] [id number] [place] [address] Mar, [facility] [address] [id number] [place] [address] Mar, [facility] [address] [id number] [place] [address] 03 Feb, 2013 [facility] [address] [id number] [place] [address] 18 Sep, 2012 [facility] [address] [id number] [place] [address] 17 Sep, 2012 [facility] [address] [id number] [place] [address] 06 Sep, 2012 [facility] [address] [id number] [place] [address] 04 Jan, 2012 [facility] [address] [facility] [id number] [place] [address] Jan, 2012 [facility] [address] [id number] [place] [address] Dec, 2012 [facility] [address] [id number] [place] [address] Dec, 2012 [facility] [address] [facility] [id number] [place] [address] Dec, [facility] [address] [id number] [place] [address] Dec, [facility] [address] [id number] [place] [address] Dec, [facility] [address] [id number] [place] [address] Dec, [facility] [address] [id number] [place] [address] Dec, [facility] [address] [id number] [place] [address] Dec, [facility] [address] [id number] [place] [address] Nov, [facility] [address] [id number] [place] [address] Nov, [facility] [address] [id number] [place] [address] Nov, [facility] [address] [id number] [place] [address] Nov, [facility] [address] [id number] [place] [address] Nov, [facility] [address] [id number] [place] [address] Nov, [facility] [address] [id number] [place] [address] Oct, [facility] [address] [id number] [place] [id number] Oct, [facility] [place] [address] [id number] [place] [id number] Oct, [facility] [place] [address] [id number] [place] [id number] Oct, [facility] [place] [address] [id number] [place] [id number] Oct, [facility] [address] [id number] [place] [address] Oct, [facility] [address] [id number] [place] [address] Oct, [facility] [id number] [place] [address] Oct, [facility] [id number] [place] [address] Oct, [facility] [id number] [place] [address] Oct, [facility] [address] [id number] [place] [address] Oct, [facility] [address] [id number] [place] [address] September, [facility] [id number] [place] [address] Aug, [facility] [id number] [place] [address] Aug, [facility] [address] [id number] [place] [address] Aug, [facility] [id number] [place] [address] Aug, [facility] [address] [id number] [place] [address] 24 Jul, 2012 [facility] [id number] [place] [address] Jul, [facility] [address] [id number] [place] [address] Jul, [facility] [address] [id number] [place] [address] 05 Jul, 2012 [facility] [address] [id number] [place] [address] 04 Jul, 2012 [facility] [address] [id number] [place] [address] Jun, [facility] [address] [id number] [place] [address] Jun, [facility] [address] [id number] [place] [address] Jun, [facility] [address] [id number] [place] [address] May, [facility] [address] [id number] [place] [address] 24 May, 2012 [facility] [address] [id number] [place] [address] May, [facility] [address] [id number] [place] [address] May, [facility] [address] [id number] [place] [address] May, [facility] [address] [id number] [place] [address] May, [facility] [address] [id number] [place] [address] 18 Apr, 2012 [facility] [address] [id number] [place] [address] 18 Apr, 2012 [facility] [address] [id number] [place] [address] Apr, [facility] [address] [id number] [place] [address] Apr, [facility] [address] [id number] [place] [address] Apr, [facility] [address] [id number] [place] [address] Apr, [facility] [address] [id number] [place] [address] Apr, [facility] [address] [id number] [place] [address] Mar, [facility] [address] [id number] [place] [address] Mar, [facility] [address] [id number] [place] [address] Mar, [facility] [address] [id number] [place] [address] Mar, [facility] [address] [id number] [place] [address] Jan, [facility] [address] [id number] [place] [address] Jan, [facility] [address] [id number] [place] [address] Jan, [facility] [address] [id number] [place] [address] Jan, [facility] [place] [place] [address] [id number] [place] [id number] Dec, [facility] [address] [id number] [place] [address] Dec, [facility] [address] [id number] [place] [id number] Dec, [facility] [address] [id number] [place] [address] Dec, [facility] [address] [id number] [place] [address] Dec, [facility] [address] [id number] [place] [address] Dec, [facility] [address] [id number] [place] [address] 30 Nov, 2011 [facility] [address] [facility] [id number] [place] [address] Nov, [facility] [address] [facility] [id number] [place] [address] Nov, IMMUNIZATIONS No Known Immunizations SOCIAL HISTORY [...] asthma(493.90) Medical History Near syncope Medical History rn long term care current use of anticoagulant Medical History [...] Stent placed 08/19/2017 Hospitalization History Syncope- [facility] 12/2017 Hospitalization History heart cath ( 06/23/18-06/25/2018) Hospitalization History heart problem, overnight stay 9
--- OUTSIDE RECORDS SUMMARY | 2019-11-03 19:32 | XMS REPORT ---
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 Name Role Phone Migration, Doctor Unavailable Unavailable PROBLEMS Type Condition ICD9-CM Code VPY21-LT Code Onset Dates Condition S tatus SNOMED Code Problem Shortness of breath R06.02 Apr, 0 259701434 Problem Unspecified hypothyroidism E03.9 0 79576416 Problem Generalized anxiety disorder F41.1 Apr, 8 0 25648703 Problem Esophageal reflux K21.9 0 24 2118975 Problem Dyslipidemia E78.5 12 Oct, 2017 0 3709 16636 Problem Osteoarthritis of right knee M17.11 May, 0 0 219498604 Problem Unspecified sleep apnea G47.30 0 64983120 Problem Morbid obesity with BMI of 50.0-59.9, adult Z68.43 Active 158064456 Problem Migraine with aura and without status migrainosu s, not intractable G43.109 Active 9337765 Problem Pulmonary embolus I26.99 13 Oct, 2011 0 86884783 Problem Morbid obesity E66.01 Active 23516 6002 Problem Nonintractable migraine G43.009 08 Oct, 2015 0 667269334 Problem Hypothyroidism E03.9 Active 70387 008 Problem Renal stones N20.0 Active 8785173 7 Problem Coronary artery disease I25.10 Active 32219288 Problem Hyperlipidemia LDL goal <70 E78.5 Ac tive [id number] ALLERGIES No Information ENCOUNTERS Encounter Location Date Diagnosis [facility] [address] [facility] [id number] [address] [place] [phone] Jan, [facility] [address] [facility] [id number] [address] [place] [address] Dec, Hematuria, unspecified type R31.9 [facility] [address] [facility] [id number] [address] [place] [address] Nov, Hematuria, unspecified type R31.[address] [address] Nov, Other microscopic hematuria R31.29 [facility] [address] [facility] [id number] [address] [place] [address] Nov, Vaginal gena B37.3 ; Othe r microscopic hematuria R31.29 and Morbid obesity E66.01 [facility] [address] [id number] [address] [place] [id number] Nov, [facility] [address] [id number] [address] [place] [address] Nov, [facility] [address] [facility] [id number] [address] [place] [address] Nov, UTI symptoms R39.9 and Morbi d obesity E66.01 [facility] [address] [facility] [id number] [address] [place] [id number] Nov, [facility] [address] [facility] [id number] [address] [place] [address] September, [facility] [address] [facility] [id number] [address] [place] [address] September, [facility] [address] [facility] [id number] [address] [place] [address] Aug, Right foot pain M79.671 and Morbid obesity E66.01 [facility] [address] [facility] [id number] [address] [place] [address] Jul, Right foot pain M79.671 and Morbid obesity E66.01 [facility] [address] [facility] [id number] [address] [place] [address] Jul, Injury of right foot, initia l encounter S99.921A and Morbid obesity E66.01 [facility] [address] [facility] [id number] [address] [place] [address] Jul, Recurrent syncope R55 and Mo rbid obesity E66.01 [facility] [address] [place] [id number] [address] [place] [address] Jul, [facility] [address] [place] [id number] [address] [place] [address] Jun, Hematuria, unspecified type R31.9 and BMI 50.0-59.9, adult Z68.43 [facility] [address] [place] [id number] [address] [place] [address] Jun, [address] [address] Jun, halfway current use of anticoagulant Z 79.01 [facility] [address] [address] May, Ankle pain, right M25.571 an d BMI 50.0-59.9, adult Z68.43 [place] [address] [address] May, [facility] [address] [address] May, [facility] [address] [address] Apr, [facility] [address] [address] Apr, [place] [address] [address] Apr, [facility] [address] [address] Apr, BMI 50.0-59.9, adult Z68.43 and Weakness R53.1 [facility] [address] [address] Apr, [facility] [address] [place] [id number] [place] [address] Apr, Dysuria R30.0 ; Hematuria R3 1.9 ; Renal lithiasis N20.0 and BMI 50.0-59.9, adult Z68.43 [place] [address] [address] Apr, [place] [address] [address] Apr, [place] [address] [address] Apr, Hypothyroidism E03.9 [place] [address] [address] Apr, Burning with urination R30.0 ; Type 2 diabetes mellitus with diabetic neuropathic arthropathy, 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 ; Acute bilateral low back pain without sciatica M54.5 and BMI 50.0- 59.9, adult Z68.43 [place] [address] [address] Mar, Hypothyroidism E03.9 [place] [address] [address] Feb, [facility] [place] [address] [address] 15 Jan, 2018 [place] [address] [address] 07 Jan, 2018 Acute non-recurrent maxillar y sinusitis J01.00 and BMI 50.0-59.9, adult Z68.43 [facility] [place] [address] [address] 04 Jan, 2018 Congestion of upper respirat ory tract J98.8 and BMI 50.0-59.9, adult Z68.43 [place] [address] [address] Dec, Type 2 diabetes mellitus wit h diabetic neuropathic arthropathy, without long-term current use of insulin E11.610 ; Morbid obesity with BMI of 50.0-59.9, adult Z68.43 ; Hypothyroidism E03.9 ; Coronary artery disease I25.10 ; Hyperlipidemia LDL goal <70 E78.5 ; Right lower quadrant abdominal pain R10.31 and Acute cystitis with hematuria N30.01 [facility] [id number] [place] [address] Dec, Migraine with aura and witho ut status migrainosus, not intractable G43.109 ; Dehydration symptoms R63.8 and BMI 50.0-59.9, adult Z68.43 [facility] [address] [address] Oct, [facility] [address] [address] Oct, [facility] [address] [address] Oct, [facility] [address] [address] September, [facility] [address] [place] [id number] [address] [place] [address] September, Type 2 diabetes mellitus wit h diabetic neuropathic arthropathy, without long-term current use of insulin E11.610 ; Hyperlipidemia, unspecified hyperlipidemia type E78.5 ; Personal history of pulmonary embolism Z86.711 ; Coronary artery disease I25.10 and Hypothyroidism E03.9 [facility] [address] [address] September, [facility] [address] [place] [id number] [address] [place] [address] Aug, Type 2 diabetes mellitus wit h [...] and with status migrainosus G43.011 [place] [address] [place] [id number] [address] [place] [address] Aug, [place] [address] [place] [id number] [address] [place] [address] Aug, [place] [address] [place] [id number] [place] [address] Jul, Renal stones N20.0 [facility] [address] [place] [id number] [address] [place] [address] Jun, Back pain M54.9 ; Kidney sto radha N20.0 and BMI 50.0-59.9, adult Z68.43 [place] [address] [address] Jun, [place] [address] [address] Apr, [place] [address] [address] Apr, [place] [address] [address] Apr, Right foot pain M79.671 ; Ac [place] gout involving toe of right foot, 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 and Arthritis M19.90 [place] [address] [address] Apr, Gastroesophageal reflux dise ase without esophagitis K21.9 [place] [address] [place] [id number] [address] [place] [address] Mar, Hypothyroidism, unspecified E03.9 [place] [address] [place] [id number] [address] [place] [address] Feb, [place] [address] [place] [id number] [place] [address] 25 Jan, 2017 Cervicalgia of occipito-atla nto-axial region M54.2 and Persistent headaches R51 [facility] [address] [place] [id number] [address] [place] [address] 20 Jan, 2017 [place] [address] [address] 12 Jan, 2017 Intractable migraine without aura and with status migrainosus G43.011 ; Cervical spine pain M54.2 ; Hyperlipidemia, unspecified hyperlipidemia type E78.5 ; Hypothyroidism E03.9 and Metabolic syndrome E88.81 [facility] [address] [address] Jan, Hypothyroidism, unspecified E03.9 [place] [address] [address] Dec, Hypothyroidism, unspecified E03.9 [place] [address] [address] Dec, Hypothyroidism E03.9 [place] [address] [address] Nov, Laceration of left great toe w/o foreign body w/o damage to nail, initial encounter S91.112A [facility] [address] [address] Oct, Pain in left knee M25.562 an d Arthritis M19.90 [facility] [address] [address] Oct, Hypothyroidism, unspecified E03.9 and Hyperlipidemia, unspecified hyperlipidemia type E78.5 [facility] [address] [place] [address] Oct, Gastroesophageal reflux dise ase without esophagitis K21.9 [place] [address] [place] [id number] [address] [place] [address] 14 Oct, 2016 Metabolic syndrome E88.81 ; Personal history of pulmonary embolism Z86.711 ; Other specified hypothyroidism E03.8 and Hyperlipidemia, unspecified hyperlipidemia type E78.5 [place] [address] [place] [id number] [address] [place] [address] 13 Oct, 2017 Personal history of pulmonar y embolism Z86.711 ; Dysuria R30.0 ; Metabolic syndrome E88.81 ; Other specified hypothyroidism E03.8 ; Hyperlipidemia, unspecified hyperlipidemia type E78.5 and Morbid obesity with BMI of 50.0-59.9, adult Z68.43 [place] [address] [address] September, [facility] [place] [address] [address] September, Wrist pain, left M25.532 and Acute pain of left knee M25.562 [place] [address] [address] Jul, Dysuria R30.0 [place] [address] [address] Jul, Dysuria R30.0 [place] [address] [place] [id number] [place] [address] Jul, Left lower quadrant pain R10 .32 [place] [address] [place] [id number] [place] [address] Jul, [place] [address] [address] Jul, Coronary artery disease I25. 10 ; Family history of diabetes mellitus Z83.3 ; Morbid obesity with BMI of 50.0-59.9, adult Z68.43 ; Metabolic syndrome E88.81 ; Personal history of pulmonary embolism Z86.711 ; Gastroesophageal reflux disease without esophagitis K21.9 ; Hypothyroidism, unspecified E03.9 ; Hyperlipidemia, unspecified hyperlipidemia type E78.5 and Left lower quadrant pain R10.32 [facility] [address] [address] Jul, [facility] [address] [address] 08 Jul, 2016 Morbid obesity with BMI of 5 0.0-59.9, adult Z68.43 [facility] [address] [address] 07 Jul, 2016 Generalized abdominal pain R 10.84 [facility] [address] [address] 02 Jun, 2016 Muscle strain of right upper back, initial encounter S29.012A [facility] [address] [address] May, Foreign body (FB) in soft ti ssue M79.[address] [address] Mar, Hypothyroidism, unspecified E03.9 and Arthritis M19.[address] [address] Feb, Coronary artery disease I25. 10 ; Morbid obesity with BMI of 50.0- 59.9, adult Z68.43 ; Metabolic syndrome E88.81 ; Gastroesophageal reflux disease without esophagitis K21.9 ; Hypothyroidism, unspecified E03.9 ; Personal history of pulmonary embolism Z86.711 and Hyperlipidemia, unspecified hyperlipidemia type E78.[address] [address] Feb, [facility] [address] [address] Jan, Acute right-sided thoracic b ack pain M54.[address] [address] Jan, Acute pain of left knee M25. [address] [address] Dec, Dysuria R30.0 ; Metabolic sy ndrome E88.81 ; Acute pain of left knee M25.562 ; Acute cystitis with hematuria N30.01 and Acute left eye pain H57.12 [place] [address] [facility] [id number] [address] [place] [address] Dec, [place] [address] [facility] [id number] [address] [place] [address] Dec, [place] [address] [facility] [id number] [address] [place] [address] Dec, Hypothyroidism, unspecified E03.9 [place] [address] [facility] [id number] [address] [place] [address] Dec, [place] [address] [place] [id number] [place] [address] Nov, Peripheral edema R60.9 and A cute pain of left knee M25.562 [facility] [place] [address] [place] [id number] [address] [place] [address] September, [place] [address] [place] [id number] [address] [place] [address] September, Metabolic syndrome E88.81 an d Allergy, subsequent encounter T78.40XD [facility] [place] [id number] [address] [place] [address] September, Muscle strain T14.[address] [id number] [address] [place] [address] Aug, Chest pressure R07.89 ; Dillon bolic syndrome E88.81 ; Morbid obesity with BMI of 50.0-59.9, adult Z68.43 ; Esophageal reflux 530.81 and Shortness of breath R06.02 [place] [address] [facility] [id number] [address] [place] [address] Aug, [place] [address] [place] [id number] [address] [place] [address] Aug, [place] [address] [address] Aug, Hypothyroidism, unspecified E03.9 [facility] [address] [address] Aug, Routine health maintenance Z 00.00 [facility] [address] [address] Aug, [facility] [address] [address] Jul, Routine health maintenance Z 00.00 ; Family history of diabetes mellitus Z83.3 ; Family history of cancer Z80.9 and Morbid obesity with BMI of 50.0-59.9, adult Z68.43 [facility] [address] [address] Jul, Allergic rhinitis J30.9 and Postnasal drip R09.82 [place] [address] [address] Jul, Influenza J11.1 [facility] [address] [address] Jul, Dysuria R30.0 [place] [address] [address] Apr, [place] [address] [address] Mar, Acute upper respiratory infe ction, unspecified J06.9 and Hypothyroidism E03.9 [place] [address] [address] Mar, [place] [address] [address] Feb, Coronary artery disease I25. 10 [place] [address] [address] 16 Feb, 2015 Left foot pain M79.672 [place] [address] [facility] [id number] [address] [place] [address] Jan, UTI (urinary tract infection ) 599.0 [facility] [address] [id number] [address] [place] [address] Jan, Urinary tract infection, sit e not specified 599.0 [facility] [address] [id number] [address] [place] [address] Jan, Urinary tract infection, sit e not specified 599.0 [facility] [address] [id number] [address] [place] [address] Jan, [place] [address] [id number] [address] [place] [address] Dec, Headache 784.0 [facility] [address] [id number] [address] [place] [address] Dec, Urinary tract infection, sit e not specified 599.0 [place] [address] [id number] [address] [place] [address] Dec, Urinary tract infection, sit e not specified 599.0 [place] [address] [id number] [address] [place] [address] Dec, Urinary tract infection, sit e not specified 599.0 [place] [address] [id number] [address] [place] [address] Nov, Unspecified sleep apnea 780. 57 ; Encounter for long-term (current) use of anticoagulants V58.61 ; Routine general medical examination at health care facility V70.0 and Arthritis of both knees 716.96 [place] [address] [id number] [address] [place] [address] September, Cat bite of hand 882.0 and R ectal bleeding 569.3 [facility] [address] [id number] [address] [place] [address] Aug, [facility] [address] [id number] [address] [place] [address] Aug, [facility] [address] [id number] [address] [place] [address], [place] [id number] Jul, [facility] [address] [id number] [address] [place] [address], [place] [id number] Jul, [facility] [address] [id number] [address] [place] [address], [place] [id number] Jul, [facility] [address] [id number] [address] [place] [address], [place] [id number] Jul, [facility] [address] [id number] [address] [place] [address], [place] [id number] Jul, [facility] [address] [id number] [address] [place] [address], [place] [id number] Jul, [facility] [address] [id number] [address] [place] [address], [place] [id number] Jul, [facility] [address] [id number] [address] [place] [address], [place] [id number] Jul, [facility] [address] [id number] [address] [place] [address], [place] [id number] May, [facility] [address] [id number] [address] [place] [address], [place] [id number] May, [facility] [address] [id number] [address] [place] [address], [place] [id number] May, [facility] [address] [id number] [address] [place] [address], [place] [id number] May, [facility] [address] [id number] [address] [place] [address], [place] [id number] May, [facility] [address] [id number] [address] [place] [address], [place] [id number] May, [facility] [address] [id number] [address] [place] [address], [place] [id number] May, [facility] [address] [id number] [facility] [place] [id number] Mar, [facility] [address] [id number] [facility] [place] [id number] Mar, [facility] [address] [id number] [facility] [place] [id number] 08 Jan, 2013 [facility] [address] [id number] [facility] [place] [id number] 08 Jan, 2013 [facility] [address] [id number] [facility] [place] [id number] 08 Jan, 2013 [facility] [address] [id number] [address] [place] [address], [place] [id number] 08 Jan, 2013 [facility] [address] [id number] [address] [place] [address], [place] [id number] 05 Jan, 2013 [facility] [address] [id number] [address] [place] [address], [place] [id number] Jan, 2013 [facility] [address] [id number] [address] [place] [address], [place] [id number] Dec, [facility] [address] [id number] [address] [place] [address], [place] [id number] Dec, [facility] [address] [id number] [address] [place] [address], [place] [id number] Dec, [facility] [address] [id number] [address] [place] [address], [place] [id number] Dec, [facility] [address] [id number] [address] [place] [address], [place] [id number] Dec, [facility] [address] [id number] [address] [place] [address], [place] [id number] Dec, [facility] [address] [id number] [address] [place] [address], [place] [id number] Dec, [facility] [address] [id number] [address] [place] [address], [place] [id number] Dec, [facility] [address] [id number] [facility] [place] [id number] Dec, [facility] [address] [id number] [address] [place] [address], [place] [id number] Dec, [facility] [address] [id number] [facility] [place] [id number] Nov, [facility] [address] [id number] [address] [place] [address], [place] [id number] Nov, [facility] [address] [id number] [address] [place] [address], [place] [id number] September, [facility] [address] [id number] [address] [place] [address], [place] [id number] September, [facility] [address] [id number] [address] [place] [address], [place] [id number] September, [facility] [address] [id number] [address] [place] [address], [place] [id number] September, [facility] [address] [id number] [address] [place] [address], [place] [id number] Aug, [facility] [address] [id number] [address] [place] [address], [place] [id number] Aug, [facility] [address] [id number] [address] [place] [address], [place] [id number] Aug, [facility] [address] [id number] [address] [place] [address], [place] [id number] Aug, [facility] [address] [id number] [address] [place] [address], [place] [id number] Aug, [facility] [address] [id number] [address] [place] [address], [place] [id number] Aug, [facility] [address] [id number] [address] [place] [address], [place] [id number] Aug, [facility] [address] [id number] [facility] [place] [id number] 08 Aug, 2013 [facility] [address] [id number] [address] [place] [address], [place] [id number] 07 Aug, 2013 [facility] [address] [id number] [address] [place] [address], [place] [id number] Aug, [facility] [address] [id number] [address] [place] [address], [place] [id number] 07 Aug, 2013 [facility] [address] [id number] [address] [place] [address], [place] [id number] Aug, [facility] [address] [id number] [address] [place] [address], [place] [id number] Jul, [facility] [address] [id number] [address] [place] [address], [place] [id number] Jul, [facility] [address] [id number] [address] [place] [address], [place] [id number] Jul, [facility] [address] [id number] [address] [place] [address], [place] [id number] Jul, [facility] [address] [id number] [address] [place] [address], [place] [id number] Jul, [facility] [address] [id number] [address] [place] [address], [place] [id number] Jul, [facility] [address] [id number] [address] [place] [address], [place] [id number] 05 Jul, 2013 [facility] [address] [id number] [address] [place] [address], [place] [id number] 05 Jul, 2013 [facility] [address] [id number] [address] [place] [address], [place] [id number] Jul, [facility] [address] [id number] [address] [place] [address], [place] [id number] Jul, [facility] [address] [id number] [address] [place] [address], [place] [id number] Jun, [facility] [address] [id number] [facility] [place] [id number] Jun, [facility] [address] [id number] [address] [place] [address], [place] [id number] Jun, [facility] [address] [id number] [address] [place] [address], [place] [id number] Jun, [facility] [address] [id number] [address] [place] [address], [place] [id number] Jun, [facility] [address] [id number] [address] [place] [address], [place] [id number] Jun, [facility] [address] [id number] [address] [place] [address], [place] [id number] Jun, [facility] [address] [id number] [address] [place] [address], [place] [id number] Jun, [facility] [address] [id number] [address] [place] [address], [place] [id number] Jun, [facility] [address] [id number] [address] [place] [address], [place] [id number] Jun, [facility] [address] [id number] [address] [place] [address], [place] [id number] Jun, [facility] [address] [id number] [address] [place] [address], [place] [id number] Jun, [facility] [address] [id number] [address] [place] [address], [place] [id number] May, [facility] [address] [id number] [address] [place] [address], [place] [id number] May, [facility] [address] [id number] [address] [place] [address], [place] [id number] May, [facility] [address] [id number] [address] [place] [address], [place] [id number] May, [facility] [address] [id number] [address] [place] [address], [place] [id number] May, [facility] [address] [id number] [address] [place] [address], [place] [id number] May, [facility] [address] [id number] [address] [place] [address], [place] [id number] May, [facility] [address] [id number] [address] [place] [address], [place] [id number] May, [facility] [address] [id number] [address] [place] [address], [place] [id number] May, [facility] [address] [id number] [address] [place] [address], [place] [id number] May, [facility] [address] [id number] [address] [place] [address], [place] [id number] May, [facility] [address] [id number] [address] [place] [address], [place] [id number] May, [facility] [address] [id number] [address] [place] [address], [place] [id number] May, [facility] [address] [id number] [address] [place] [address], [place] [id number] May, [facility] [address] [id number] [address] [place] [address], [place] [id number] May, [facility] [address] [id number] [address] [place] [address], [place] [id number] Apr, [facility] [address] [id number] [address] [place] [address], [place] [id number] Apr, [facility] [address] [id number] [address] [place] [address], [place] [id number] Apr, [facility] [address] [id number] [address] [place] [address], [place] [id number] Apr, [facility] [address] [id number] [address] [place] [address], [place] [id number] Mar, [facility] [address] [id number] [address] [place] [address], [place] [id number] Mar, [facility] [address] [id number] [address] [place] [address], [place] [id number] Mar, [facility] [address] [id number] [address] [place] [address], [place] [id number] Mar, [facility] [address] [id number] [address] [place] [address], [place] [id number] Mar, [facility] [address] [id number] [address] [place] [address], [place] [id number] Mar, [facility] [address] [id number] [address] [place] [address], [place] [id number] Mar, [facility] [address] [id number] [address] [place] [address], [place] [id number] Mar, [facility] [address] [id number] [address] [place] [phone] Mar, [facility] [address] [id number] [address] [place] [address], [place] [id number] Mar, [facility] [address] [id number] [address] [place] [id number] Mar, [facility] [address] [id number] [address] [place] [phone] Mar, [facility] [address] [id number] [address] [place] [id number] Feb, [facility] [address] [id number] [address] [place] [address], [place] [id number] 18 Sep2012 [facility] [address] [id number] [address] [place] [id number] 17 Sep2012 [facility] [address] [id number] [address] [place] [id number] 06 Sep2012 [facility] [address] [id number] [address] [place] [id number] 04 Jan, 2013 [facility] [address] [id number] [address] [place] [address], [place] [id number] Jan, [facility] [address] [id number] [address] [place] [address], [place] [id number] Dec, [facility] [address] [id number] [address] [place] [address], [place] [id number] Dec, [facility] [address] [id number] [address] [place] [address], [place] [id number] Dec, [facility] [address] [id number] [address] [place] [address], [place] [id number] Dec, [facility] [address] [id number] [address] [place] [address], [place] [id number] Dec, [facility] [address] [id number] [address] [place] [address], [place] [id number] Dec, [facility] [address] [id number] [address] [place] [address], [place] [id number] Dec, [facility] [address] [id number] [address] [place] [address], [place] [id number] Dec, [facility] [address] [id number] [address] [place] [address], [place] [id number] Nov, [facility] [address] [id number] [address] [place] [address], [place] [id number] Nov, [facility] [address] [id number] [address] [place] [address], [place] [id number] Nov, [facility] [address] [id number] [address] [place] [address], [place] [id number] Nov, [facility] [address] [id number] [address] [place] [address], [place] [id number] Nov, [facility] [address] [id number] [address] [place] [address], [place] [id number] Nov, [facility] [address] [id number] [address] [place] [address], [place] [id number] Oct, [facility] [place] [address] [id number] [id number] Oct, [facility] [place] [address] [id number] [place] [id number] Oct, [facility] [place] [address] [id number] [place] [id number] Oct, [facility] [place] [address] [id number] [place] [id number] Oct, [facility] [address] [id number] [address] [place] [address], [place] [id number] Oct, [facility] [address] [id number] [address] [place] [address], [place] [id number] Oct, [facility] [address] [id number] [address] [place] [address], [place] [id number] Oct, [facility] [address] [id number] [address] [place] [address], [place] [id number] Oct, [facility] [address] [id number] [address] [place] [address], [place] [id number] Oct, [facility] [address] [id number] [address] [place] [address], [place] [id number] Oct, [facility] [address] [id number] [address] [place] [id number] September, [facility] [address] [id number] [address] [place] [address], [place] [id number] Aug, [facility] [address] [id number] [address] [place] [address], [place] [id number] Aug, [facility] [address] [id number] [address] [place] [address], [place] [id number] Aug, [facility] [address] [id number] [address] [place] [address], [place] [id number] Aug, [facility] [address] [id number] [address] [place] [address], [place] [id number] 24 Jul, 2012 [facility] [address] [id number] [address] [place] [address], [place] [id number] 20 Jul, 2012 [facility] [address] [id number] [address] [place] [address], [place] [id number] 20 Jul, 2012 [facility] [address] [id number] [address] [place] [address], [place] [id number] 05 Jul, 2012 [facility] [address] [id number] [address] [place] [address], [place] [id number] 04 Jul, 2012 [facility] [address] [id number] [address] [place] [address], [place] [id number] 19 Jun, 2012 [facility] [address] [id number] [address] [place] [address], [place] [id number] 13 Jun, 2012 [facility] [address] [id number] [address] [place] [address], [place] [id number] Jun, [facility] [address] [id number] [address] [place] [address], [place] [id number] May, [facility] [address] [id number] [address] [place] [address], [place] [id number] 24 May, 2012 [facility] [address] [id number] [address] [place] [address], [place] [id number] 14 May, 2012 [facility] [address] [id number] [address] [place] [address], [place] [id number] May, [facility] [address] [id number] [address] [place] [address], [place] [id number] May, [facility] [address] [id number] [address] [place] [address], [place] [id number] May, [facility] [address] [id number] [address] [place] [address], [place] [id number] Apr, [facility] [address] [id number] [address] [place] [address], [place] [id number] Apr, [facility] [address] [id number] [address] [place] [address], [place] [id number] Apr, [facility] [address] [id number] [address] [place] [address], [place] [id number] Apr, [facility] [address] [id number] [address] [place] [address], [place] [id number] Apr, [facility] [address] [id number] [address] [place] [address], [place] [id number] Apr, [facility] [address] [id number] [address] [place] [address], [place] [id number] Apr, [facility] [address] [id number] [address] [place] [address], [place] [id number] Mar, [facility] [address] [id number] [address] [place] [address], [place] [id number] Mar, [facility] [address] [id number] [address] [place] [address], [place] [id number] Mar, [facility] [address] [id number] [address] [place] [address], [place] [id number] Mar, [facility] [address] [id number] [address] [place] [id number] 18 Jan, 2012 [facility] [address] [id number] [address] [place] [address], [place] [id number] Jan, [facility] [address] [id number] [address] [place] [phone] Jan, [facility] [address] [id number] [address] [place] [address], [place] [phone] Jan, [facility] [address] [id number] [place] [id number] Dec, [facility] [address] [id number] [address] [place] [address], [place] [id number] Dec, [facility] [address] [id number] Dec[facility] [address] [facility] [id number] [address] [place] [id number] Dec, [facility] [address] [facility] [id number] [address] [place] [phone] Dec, [facility] [address] [facility] [id number] [address] [place] [phone] Dec, [facility] [address] [facility] [id number] [address] [place] [id number] Nov, [facility] [address] [facility] [id number] [address] [place] [id number] Nov, [facility] [address] [facility] [id number] [address] [place] [id number] Nov, IMMUNIZATIONS No Known Immunizations SOCIAL HISTORY Never Assessed REASON FOR VISIT PLAN OF CARE VITAL SIGNS Height 64 in 2014-01-16 Weight 328.4 lbs 2014-01-16 Temperature 97.6 degrees Fahrenheit 2014-01-16 Heart Rate 86 bpm 2014-01-16 Respiratory Rate 20 2014-01-16 Blood pressure systolic 128 mmHg 2014-01-16 Blood pressure diastolic 80 mmHg 2014-01-16 MEDICATIONS Unknown Medications RESULTS No Results PROCEDURES [...] asthma(493.90) Medical History Near syncope 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
--- OUTSIDE RECORDS SUMMARY | 2019-11-03 19:32 | XMS REPORT ---
Author Author Anca Lucero Doctor Organization [facility] Address Unknown Phone Unavailable Care Team Providers Care Geriatrician Name Role Phone Migration, Doctor Unavailable Unavailable PROBLEMS Type Condition ICD9-CM Code [id number] Code Onset Dates Condition S tatus SNOMED Code Problem Shortness of breath R06.02 Apr, 0 058119527 Problem Unspecified hypothyroidism E03.9 0 56523303 Problem Generalized anxiety disorder F41.1 Apr, 8 0 65391810 Problem Esophageal reflux K21.9 0 24 5800144 Problem Dyslipidemia E78.5 12 Oct, 2017 0 3709 96050 Problem Osteoarthritis of right knee M17.11 13 May, 0 0 856995044 Problem Unspecified sleep apnea G47.30 0 69474551 Problem Morbid obesity with BMI of 50.0-59.9, adult Z68.43 Active 793966144 Problem Migraine with aura and without status migrainosu s, not intractable G43.109 Active 6029867 Problem Pulmonary embolus I26.99 13 Oct, 2011 0 52604551 Problem Morbid obesity E66.01 Active 89834 6002 Problem Nonintractable migraine G43.009 08 Oct, 2015 0 183097878 Problem Hypothyroidism E03.9 Active 88953 008 Problem Renal stones N20.0 Active 3426806 7 Problem Coronary artery disease I25.10 Active 67101947 Problem Hyperlipidemia LDL goal <70 E78.5 Ac tive [id number] ALLERGIES No Information ENCOUNTERS Encounter Location Date Diagnosis [facility] [address] [facility] [id number] [address] [place] [id number] 18 Jan, 2019 Encounter for Medicare annua l wellness exam Z00.00 ; Hyperlipidemia LDL goal <70 E78.5 ; Coronary artery disease I25.10 ; Hypothyroidism E03.9 ; Osteoarthritis of right knee M17.11 ; Morbid obesity with BMI of 50.0-59.9, adult Z68.43 and Esophageal reflux K21.9 [facility] [address] [id number] [address] [place] [address] Jan, Dysuria R30.0 and Hematuria, unspecified type R31.9 [facility] [address] [id number] [address] [place] [address] Jan, Hematuria, unspecified type R31.9 [facility] [address] [id number] [address] [place] [address] Dec, Hematuria, unspecified type R31.9 [facility] [address] [id number] [address] [place] [address] Nov, Hematuria, unspecified type R31.[address] [address] Nov, Other microscopic hematuria R31.29 [facility] [address] [id number] [address] [place] [address] Nov, Vaginal gena B37.3 ; Othe r microscopic hematuria R31.29 and Morbid obesity E66.01 [facility] [address] [id number] [address] [place] [address] Nov, [facility] [address] [id number] [address] [place] [address] Nov, [facility] [address] [id number] [address] [place] [address] Nov, UTI symptoms R39.9 and Morbi d obesity E66.01 [facility] [address] [id number] [address] [place] [address] Nov, [facility] [address] [id number] [address] [place] [address] September, [facility] [address] [id number] [address] [place] [address] September, [facility] [address] [facility] [id number] [address] [place] [address] Aug, Right foot pain M79.671 and Morbid obesity E66.01 [facility] [id number] [place] [address] Jul, Right foot pain M79.671 and Morbid obesity E66.01 [facility] [address] [place] [id number] [address] [place] [address] Jul, Injury of right foot, initia l encounter S99.921A and Morbid obesity E66.01 [place] [address] [address] Jul, Recurrent syncope R55 and Mo rbid obesity E66.01 [place] [address] [address] Jul, [place] [address] [address] Jun, Hematuria, unspecified type R31.9 and BMI 50.0-59.9, adult Z68.43 [place] [address] [place] [id number] [address] [place] [address] 07 Jun, [address] [address] 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, 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 [facility] [address] [place] [id number] [address] [place] [address] May, Ankle pain, right M25.571 an d BMI 50.0-59.9, adult Z68.43 [place] [address] [place] [id number] [address] [place] [address] May, [place] [address] [address] May, [place] [address] [address] Apr, [place] [address] [place] [id number] [address] [place] [address] Apr, [place] [address] [address] Apr, [facility] [address] [address] Apr, BMI 50.0-59.9, adult Z68.43 and Weakness R53.1 [place] [address] [address] Apr, [facility] [address] [address] Apr, Dysuria R30.0 ; Hematuria R3 1.9 ; Renal lithiasis N20.0 and BMI 50.0-59.9, adult Z68.43 [place] [address] [address] Apr, [place] [address] [address] Apr, [place] [address] [address] Apr, Hypothyroidism E03.9 [place] [address] [address] 04 Apr, 2018 Burning with urination R30.0 ; Type 2 diabetes mellitus with diabetic neuropathic arthropathy, 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 ; Acute bilateral low back pain without sciatica M54.5 and BMI 50.0- 59.9, adult Z68.43 [place] [address] [address] Mar, Hypothyroidism E03.9 [place] [address] [address] Feb, [facility] [address] [address] Jan, [place] [address] [address] 07 Jan, 2018 Acute non-recurrent maxillar y sinusitis J01.00 and BMI 50.0-59.9, adult Z68.43 [facility] [address] [address] 04 Jan, 2018 Congestion of upper respirat ory tract J98.8 and BMI 50.0-59.9, adult Z68.43 [place] [address] [address] Dec, Type 2 diabetes mellitus wit h diabetic neuropathic arthropathy, without long-term current use of insulin E11.610 ; Morbid obesity with BMI of 50.0-59.9, adult Z68.43 ; Hypothyroidism E03.9 ; Coronary artery disease I25.10 ; Hyperlipidemia LDL goal <70 E78.5 ; Right lower quadrant abdominal pain R10.31 and Acute cystitis with hematuria N30.01 [facility] [address] [address] Dec, Migraine with aura and witho ut status migrainosus, not intractable G43.109 ; Dehydration symptoms R63.8 and BMI 50.0-59.9, adult Z68.43 [place] [address] [address] Oct, [place] [address] [address] Oct, [place] [address] [address] Oct, [place] [address] [address] September, [place] [address] [address] September, Type 2 diabetes mellitus wit h diabetic neuropathic arthropathy, without long-term current use of insulin E11.610 ; Hyperlipidemia, unspecified hyperlipidemia type E78.5 ; Personal history of pulmonary embolism Z86.711 ; Coronary artery disease I25.10 and Hypothyroidism E03.9 [place] [address] [address] September, [place] [address] [address] Aug, Type 2 diabetes mellitus wit h [...] and with status migrainosus G43.011 [place] [address] [address] Aug, [place] [address] [address] Aug, [place] [address] [address] Jul, Renal stones N20.0 [facility] [address] [address] 19 Jun, 2017 Back pain M54.9 ; Kidney sto radha N20.0 and BMI 50.0-59.9, adult Z68.43 [place] [address] [address] Jun, [place] [address] [address] Apr, [place] [address] [address] Apr, [place] [address] [address] Apr, Right foot pain M79.671 ; Ac ronnie gout involving toe of right foot, 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 and Arthritis M19.90 [facility] [address] [place] [address] 06 Apr, 2017 Gastroesophageal reflux dise ase without esophagitis K21.9 [place] [address] [address] 16 Mar, 2017 Hypothyroidism, unspecified E03.9 [place] [address] [address] Feb, [facility] [address] [address] 25 Jan, 2017 Cervicalgia of occipito-atla nto-axial region M54.2 and Persistent headaches R51 [place] [address] [address] 20 Jan, 2017 [place] [address] [address] 12 Jan, 2017 Intractable migraine without aura and with status migrainosus G43.011 ; Cervical spine pain M54.2 ; Hyperlipidemia, unspecified hyperlipidemia type E78.5 ; Hypothyroidism E03.9 and Metabolic syndrome E88.81 [place] [address] [address] Jan, Hypothyroidism, unspecified E03.9 [place] [address] [address] Dec, Hypothyroidism, unspecified E03.9 [facility] [address] [address] Dec, Hypothyroidism E03.9 [place] [address] [address] Nov, Laceration of left great toe w/o foreign body w/o damage to nail, initial encounter S91.112A [facility] [address] [place] [id number] [address] [place] [address] Oct, Pain in left knee M25.562 an d Arthritis M19.90 [facility] [address] [facility] [id number] [address] [place] [address] Oct, Hypothyroidism, unspecified E03.9 and Hyperlipidemia, unspecified hyperlipidemia type E78.5 [place] [address] [facility] [id number] [address] [place] [address] 22 Oct, 2016 Gastroesophageal reflux dise ase without esophagitis K21.9 [facility] [address] [place] [id number] [place] [address] 14 Oct, 2016 Metabolic syndrome E88.81 ; Personal history of pulmonary embolism Z86.711 ; Other specified hypothyroidism E03.8 and Hyperlipidemia, unspecified hyperlipidemia type E78.5 [place] [address] [place] [id number] [place] [address] 13 Oct, 2016 Personal history of pulmonar y embolism Z86.711 ; Dysuria R30.0 ; Metabolic syndrome E88.81 ; Other specified hypothyroidism E03.8 ; Hyperlipidemia, unspecified hyperlipidemia type E78.5 and Morbid obesity with BMI of 50.0-59.9, adult Z68.43 [place] [address] [address] September, [facility] [address] [place] [id number] [address] [place] [address] September, Wrist pain, left M25.532 and Acute pain of left knee M25.562 [place] [address] [place] [id number] [address] [place] [address] Jul, Dysuria R30.0 [facility] [address] [place] [address] Jul, Dysuria R30.0 [place] [address] [address] 16 Jul, 2016 Left lower quadrant pain R10 .32 [place] [address] [place] [id number] [address] [place] [address] Jul, [address] [address] 09 Jul, 2016 Coronary artery disease I25. 10 ; Family history of diabetes mellitus Z83.3 ; Morbid obesity with BMI of 50.0-59.9, adult Z68.43 ; Metabolic syndrome E88.81 ; Personal history of pulmonary embolism Z86.711 ; Gastroesophageal reflux disease without esophagitis K21.9 ; Hypothyroidism, unspecified E03.9 ; Hyperlipidemia, unspecified hyperlipidemia type E78.5 and Left lower quadrant pain R10.32 [facility] [address] [address] 09 Jul, 2016 [facility] [address] [address] 08 Jul, 2016 Morbid obesity with BMI of 5 0.0-59.9, adult Z68.43 [facility] [address] [address] 07 Jul, 2016 Generalized abdominal pain R 10.84 [facility] [address] [address] 02 Jun, 2016 Muscle strain of right upper back, initial encounter S29.012A [facility] [address] [address] May, Foreign body (FB) in soft ti ssue M79.[address] [address] Mar, Hypothyroidism, unspecified E03.9 and Arthritis M19.[address] [address] 13 Feb, 2016 Coronary artery disease I25. 10 ; Morbid obesity with BMI of 50.0- 59.9, adult Z68.43 ; Metabolic syndrome E88.81 ; Gastroesophageal reflux disease without esophagitis K21.9 ; Hypothyroidism, unspecified E03.9 ; Personal history of pulmonary embolism Z86.711 and Hyperlipidemia, unspecified hyperlipidemia type E78.5 [place] [address] [id number] [address] [place] [address] Feb, [facility] [address] [id number] [address] [place] [address] Jan, Acute right-sided thoracic b ack pain M54.6 [facility] [address] [facility] [id number] [address] [place] [address] Jan, Acute pain of left knee M25. 562 [facility] [address] [id number] [address] [place] [address] Dec, Dysuria R30.0 ; Metabolic sy ndrome E88.81 ; Acute pain of left knee M25.562 ; Acute cystitis with hematuria N30.01 and Acute left eye pain H57.12 [place] [address] [facility] [id number] [address] [place] [address] Dec, [place] [address] [id number] [address] [place] [address] Dec, [place] [address] [id number] [address] [place] [address] Dec, Hypothyroidism, unspecified E03.9 [place] [address] [id number] [address] [place] [address] Dec, [place] [id number] [id number] [address] [place] [address] Nov, Peripheral edema R60.9 and A cute pain of left knee M25.562 [facility] [address] [id number] [address] [place] [address] September, [facility] [address] [facility] [id number] [address] [place] [address] September, Metabolic syndrome E88.81 an d Allergy, subsequent encounter T78.40XD [facility] [address] [facility] [id number] [address] [place] [address] September, Muscle strain T14.8 [place] [id number] [place] [id number] [address] [place] [address] Aug, Chest pressure R07.89 ; [place] bolic syndrome E88.81 ; Morbid obesity with BMI of 50.0-59.9, adult Z68.43 ; Esophageal reflux 530.81 and Shortness of breath R06.02 [place] [address] [address] Aug, [place] [address] [address] Aug, [place] [address] [address] Aug, Hypothyroidism, unspecified E03.9 [place] [address] [address] Aug, Routine health maintenance Z 00.00 [facility] [place] [address] [address] Aug, [place] [address] [address] Jul, Routine health maintenance Z 00.00 ; Family history of diabetes mellitus Z83.3 ; Family history of cancer Z80.9 and Morbid obesity with BMI of 50.0-59.9, adult Z68.43 [facility] [place] [address] [place] [id number] [address] [place] [address] Jul, 2016 Allergic rhinitis J30.9 and Postnasal drip R09.82 [place] [address] [place] [id number] [address] [place] [address] 18 Jul, 2015 Influenza J11.1 [facility] [address] [address] 08 Jul, 2015 Dysuria R30.0 [place] [address] [address] Apr, [place] [address] [place] [id number] [address] [place] [address] Mar, Acute upper respiratory infe ction, unspecified J06.9 and Hypothyroidism E03.9 [facility] [address] [id number] [address] [place] [address] Mar, [facility] [address] [id number] [address] [place] [address] Feb, Coronary artery disease I25. 10 [facility] [address] [id number] [address] [place] [address] Feb, Left foot pain M79.672 [facility] [address] [id number] [address] [place] [address] Jan, UTI (urinary tract infection ) 599.0 [facility] [address] [id number] [address] [place] [address] Jan, Urinary tract infection, sit e not specified 599.0 [facility] [address] [id number] [address] [place] [address] Jan, Urinary tract infection, sit e not specified 599.0 [facility] [address] [id number] [address] [place] [address] Jan, [facility] [address] [id number] [address] [place] [address] Dec, Headache 784.0 [facility] [address] [id number] [address] [place] [address] Dec, Urinary tract infection, sit e not specified 599.0 [facility] [address] [id number] [address] [place] [address] Dec, Urinary tract infection, sit e not specified 599.0 [facility] [address] [id number] [address] [place] [address] Dec, Urinary tract infection, sit e not specified 599.0 [facility] [address] [id number] [address] [place] [address] Nov, Unspecified sleep apnea 780. 57 ; Encounter for long-term (current) use of anticoagulants V58.61 ; Routine general medical examination at health care facility V70.0 and Arthritis of both knees 716.96 [facility] [address] [id number] [address] [place] [address] September, Cat bite of hand 882.0 and R ectal bleeding 569.3 [facility] [address] [id number] [address] [place] [address] Aug, [facility] [address] [facility] [id number] [address] [place] [address] Aug, [facility] [address] [facility] [id number] [address] [place] [address] Jul, [facility] [address] [facility] [id number] [address] [place] [address] Jul, [facility] [address] [facility] [id number] [address] [place] [address] Jul, [facility] [address] [facility] [id number] [address] [place] [address] Jul, [facility] [address] [facility] [id number] [address] [place] [address] Jul, [facility] [address] [facility] [id number] [address] [place] [address] Jul, [facility] [address] [facility] [id number] [address] [place] [address] Jul, [facility] [address] [facility] [id number] [address] [place] [address] Jul, [facility] [address] [facility] [id number] [address] [place] [address] May, [facility] [address] [facility] [id number] [address] [place] [phone] May, [facility] [address] [id number] [address] [place] [address], [place] [address] 16 May, 2014 [facility] [address] [id number] [address] [place] [address], [place] [address] May, [facility] [address] [id number] [address] [place] [address], [place] [address] May, [facility] [address] [id number] [address] [place] [address], [place] [address] May, [facility] [address] [id number] [address] [place] [address], [place] [address] May, [facility] [address] [id number] [address] [place] [address], [place] [address] Mar, [facility] [address] [id number] [address] [place] [address], [place] [address] Mar, [facility] [address] [id number] [address] [place] [address], [place] [address] 08 Jan, 2013 [facility] [address] [id number] [address] [place] [address], [place] [address] 08 Jan, 2013 [facility] [address] [id number] [address] [place] [address], [place] [address] 08 Jan, 2013 [facility] [address] [id number] [address] [place] [address], [place] [address] 08 Jan, 2013 [facility] [address] [id number] [address] [place] [address], [place] [address] 05 Jan, 2013 [facility] [address] [id number] [address] [place] [address], [place] [address] 05 Jan, 2013 [facility] [address] [id number] [address] [place] [address], [place] [address] Dec, [facility] [address] [id number] [address] [place] [address], [place] [address] Dec, [facility] [address] [id number] [address] [place] [address], [place] [address] Dec, [facility] [address] [id number] [facility] [place] [address] Dec, [facility] [address] [id number] [facility] [place] [address] Dec, [facility] [address] [id number] [facility] [place] [address] Dec, [facility] [address] [id number] [address] [place] [address], [place] [address] Dec, [facility] [address] [id number] [facility] [place] [address] Dec, [facility] [address] [id number] [address] [place] [address], [place] [address] Dec, [facility] [address] [id number] [address] [place] [address], [place] [address] Dec, [facility] [address] [id number] [address] [place] [address], [place] [address] Nov, [facility] [address] [id number] [address] [place] [address], [place] [address] Nov, [facility] [address] [id number] [address] [place] [address], [place] [address] September, [facility] [address] [id number] [address] [place] [address], [place] [address] September, [facility] [address] [id number] [address] [place] [address], [place] [address] September, [facility] [address] [id number] [address] [place] [address], [place] [address] September, [facility] [address] [id number] [address] [place] [address], [place] [address] Aug, [facility] [address] [id number] [address] [place] [address], [place] [address] Aug, [facility] [address] [id number] [facility] [place] [address] Aug, [facility] [address] [id number] [address] [place] [address], [place] [address] Aug, [facility] [address] [id number] [address] [place] [address], [place] [address] Aug, [facility] [address] [id number] [address] [place] [address], [place] [address] Aug, [facility] [address] [id number] [address] [place] [address], [place] [address] Aug, [facility] [address] [id number] [address] [place] [address], [place] [address] Aug, [facility] [address] [id number] [address] [place] [address], [place] [address] Aug, [facility] [address] [id number] [address] [place] [address], [place] [address] Aug, [facility] [address] [id number] [address] [place] [address], [place] [address] Aug, [facility] [address] [id number] [address] [place] [address], [place] [address] Aug, [facility] [address] [id number] [address] [place] [address], [place] [address] Jul, [facility] [address] [id number] [address] [place] [address], [place] [address] Jul, [facility] [address] [id number] [address] [place] [address], [place] [address] Jul, [facility] [address] [id number] [address] [place] [address], [place] [address] Jul, [facility] [address] [id number] [address] [place] [address], [place] [address] Jul, [facility] [address] [id number] [address] [place] [address], [place] [address] Jul, [facility] [address] [id number] [facility] [place] [address] 05 Jul, 2013 [facility] [address] [id number] [facility] [place] [address] Jul, 2013 [facility] [address] [id number] [facility] [place] [address] Jul, [facility] [address] [id number] [address] [place] [address], [place] [address] Jul, [facility] [address] [id number] [address] [place] [address], [place] [address] Jun, [facility] [address] [id number] [address] [place] [address], [place] [address] Jun, [facility] [address] [id number] [address] [place] [address], [place] [address] Jun, [facility] [address] [id number] [address] [place] [address], [place] [address] Jun, [facility] [address] [id number] [address] [place] [address], [place] [address] Jun, [facility] [address] [id number] [address] [place] [address], [place] [address] Jun, [facility] [address] [id number] [address] [place] [address], [place] [address] Jun, [facility] [address] [id number] [address] [place] [address], [place] [address] Jun, [facility] [address] [id number] [address] [place] [address], [place] [address] Jun, [facility] [address] [id number] [address] [place] [address], [place] [address] Jun, [facility] [address] [id number] [address] [place] [address], [place] [address] Jun, [facility] [address] [id number] [address] [place] [address], [place] [address] Jun, [facility] [address] [id number] [address] [place] [address], [place] [address] May, [facility] [address] [id number] [address] [place] [address], [place] [address] May, [facility] [address] [id number] [address] [place] [address], [place] [address] May, [facility] [address] [id number] [address] [place] [address], [place] [address] May, [facility] [address] [id number] [address] [place] [address], [place] [address] May, [facility] [address] [id number] [address] [place] [address], [place] [address] May, [facility] [address] [id number] [address] [place] [address], [place] [address] May, [facility] [address] [id number] [address] [place] [address], [place] [address] May, [facility] [address] [id number] [address] [place] [address], [place] [address] May, [facility] [address] [id number] [address] [place] [address], [place] [address] May, [facility] [address] [id number] [address] [place] [address], [place] [address] May, [facility] [address] [id number] [address] [place] [address], [place] [address] May, [facility] [address] [id number] [address] [place] [address], [place] [address] May, [facility] [address] [id number] [address] [place] [address], [place] [address] May, [facility] [address] [id number] [address] [place] [address], [place] [address] May, [facility] [address] [id number] [address] [place] [address], [place] [address] Apr, [facility] [address] [id number] [address] [place] [address], [place] [address] Apr, [facility] [address] [id number] [address] [place] [address], [place] [address] Apr, [facility] [address] [id number] [address] [place] [address], [place] [address] Apr, [facility] [address] [id number] [address] [place] [address], [place] [address] Mar, [facility] [address] [id number] [address] [place] [address], [place] [address] Mar, [facility] [address] [id number] [address] [place] [address], [place] [address] Mar, [facility] [address] [id number] [address] [place] [address] Mar, [facility] [address] [id number] [address] [place] [address], [place] [address] Mar, [facility] [address] [id number] [address] [place] [address] Mar, [facility] [address] [id number] [address] [place] [address] Mar, [facility] [address] [id number] [address] [place] [address] Mar, [facility] [address] [id number] [address] [place] [address], [place] [address] Mar, [facility] [address] [id number] [address] [place] [address] Mar, [facility] [address] [id number] [address] [place] [address] Mar, [facility] [address] [id number] [address] [place] [address] 05 Mar, 2013 [facility] [address] [id number] [address] [place] [address], [place] [address] 03 Feb, 2013 [facility] [address] [id number] [address] [place] [address], [place] [address] 18 Jan, 2013 [facility] [address] [id number] [address] [place] [address], [place] [address] 17 Jan, 2013 [facility] [address] [id number] [address] [place] [address], [place] [address] 06 Jan, 2013 [facility] [address] [id number] [address] [place] [address], [place] [address] 04 Jan, 2013 [facility] [address] [id number] [address] [place] [address], [place] [address] Jan, [facility] [address] [id number] [address] [place] [address], [place] [address] Dec, [facility] [address] [id number] [address] [place] [address], [place] [address] Dec, [facility] [address] [id number] [address] [place] [address], [place] [address] Dec, [facility] [address] [id number] [address] [place] [address], [place] [address] Dec, [facility] [address] [id number] [address] [place] [address], [place] [address] Dec, [facility] [address] [id number] [address] [place] [address], [place] [address] Dec, [facility] [address] [id number] [address] [place] [address], [place] [address] Dec, [facility] [address] [id number] [address] [place] [address], [place] [address] Dec, [facility] [address] [id number] [address] [place] [address], [place] [address] Nov, [facility] [address] [id number] [address] [place] [address], [place] [address] Nov, [facility] [address] [id number] [address] [place] [address], [place] [address] Nov, [facility] [address] [id number] [address] [place] [address], [place] [address] Nov, [facility] [address] [id number] [address] [place] [address], [place] [address] Nov, [facility] [address] [id number] [address] [place] [address], [place] [address] Nov, [facility] [address] [id number] [address] [place] [address], [place] [address] Oct, [facility] [place] [address] [id number] [id number] Oct, [facility] [place] [address] [id number] [place] [id number] Oct, [facility] [place] [address] [id number] [place] [id number] Oct, [facility] [place] [address] [id number] [place] [id number] Oct, [facility] [address] [id number] [address] [place] [address], [place] [address] Oct, [facility] [address] [id number] [address] [place] [address], [place] [address] Oct, [facility] [address] [id number] [address] [place] [address] Oct, [facility] [address] [id number] [address] [place] [address], [place] [address] Oct, [facility] [address] [id number] [address] [place] [address], [place] [address] Oct, [facility] [address] [id number] [address] [place] [address], [place] [address] 05 Oct, 2012 [facility] [address] [id number] [address] [place] [address], [place] [address] September, [facility] [address] [id number] [address] [place] [address], [place] [address] Aug, [facility] [address] [id number] [address] [place] [address], [place] [address] Aug, [facility] [address] [id number] [address] [place] [address], [place] [address] Aug, [facility] [address] [id number] [address] [place] [address], [place] [address] Aug, [facility] [address] [id number] [address] [place] [address], [place] [address] 24 Jul, 2012 [facility] [address] [id number] [address] [place] [address], [place] [address] Jul, [facility] [address] [id number] [address] [place] [address], [place] [address] Jul, [facility] [address] [id number] [address] [place] [address], [place] [address] 05 Jul, 2012 [facility] [address] [id number] [address] [place] [address], [place] [address] Jul, [facility] [address] [id number] [address] [place] [address], [place] [address] Jun, [facility] [address] [id number] [address] [place] [address], [place] [address] Jun, [facility] [address] [id number] [address] [place] [address], [place] [address] Jun, [facility] [address] [id number] [address] [place] [address], [place] [address] May, [facility] [address] [id number] [address] [place] [address], [place] [address] 24 May, 2012 [facility] [address] [id number] [address] [place] [address], [place] [address] 14 May, 2012 [facility] [address] [id number] [address] [place] [address], [place] [address] 11 May, 2012 [facility] [address] [id number] [address] [place] [address], [place] [address] 07 May, 2012 [facility] [address] [id number] [address] [place] [address], [place] [address] 04 May, 2012 [facility] [address] [id number] [address] [place] [address], [place] [address] 18 Apr, 2012 [facility] [address] [id number] [address] [place] [address], [place] [address] 18 Apr, 2012 [facility] [address] [id number] [address] [place] [address], [place] [address] 13 Apr, 2012 [facility] [address] [id number] [address] [place] [address], [place] [address] 13 Apr, 2012 [facility] [address] [id number] [address] [place] [address], [place] [address] 13 Apr, 2012 [facility] [address] [id number] [address] [place] [address], [place] [address] Apr, [facility] [address] [id number] [address] [place] [address], [place] [address] Apr, [facility] [address] [id number] [address] [place] [address], [place] [address] Mar, [facility] [address] [id number] [address] [place] [address], [place] [address] Mar, [facility] [address] [id number] [address] [place] [address], [place] [address] Mar, [facility] [address] [id number] [address] [place] [address], [place] [address] Mar, [facility] [address] [id number] [address] [place] [address], [place] [address] 18 Jan, 2012 [facility] [address] [id number] [address] [place] [address] Jan, [facility] [address] [facility] [id number] [address] [place] [address] Jan, [facility] [address] [facility] [id number] [address] [place] [address] Jan, [facility] [address] [id number] [place] [id number] Dec, [facility] [address] [facility] [id number] [address] [place] [address] Dec, [facility] [address] [id number] [place] [id number] Dec, [facility] [address] [facility] [id number] [address] [place] [address] Dec, [facility] [address] [facility] [id number] [address] [place] [address] Dec, [facility] [address] [facility] [id number] [address] [place] [address] Dec, [facility] [address] [facility] [id number] [address] [place] [address] Nov, [facility] [address] [facility] [id number] [address] [place] [address] Nov, [facility] [address] [facility] [id number] [address] [place] [address] Nov, IMMUNIZATIONS No Known Immunizations SOCIAL HISTORY Never Assessed REASON FOR VISIT PLAN OF CARE VITAL SIGNS MEDICATIONS No [...]
--- OUTSIDE RECORDS SUMMARY | 2019-11-03 19:32 | XMS REPORT ---
Author Author Anca Lucero Doctor Organization [facility] Address Unknown Phone Unavailable Care Team Providers Care Procedural Nurse Name Role Phone Migration, Doctor Unavailable Unavailable PROBLEMS Type Condition ICD9-CM Code [id number] Code Onset Dates Condition S tatus SNOMED Code Problem Shortness of breath R06.02 Apr, 0 276402218 Problem Unspecified hypothyroidism E03.9 0 88845994 Problem Generalized anxiety disorder F41.1 Apr, 8 0 47573790 Problem Esophageal reflux K21.9 0 24 6386938 Problem Dyslipidemia E78.5 12 Oct, 2017 0 3709 11335 Problem Osteoarthritis of right knee M17.11 May, 0 0 293735716 Problem Unspecified sleep apnea G47.30 0 01373091 Problem Morbid obesity with BMI of 50.0-59.9, adult Z68.43 Active 012080117 Problem Migraine with aura and without status migrainosu s, not intractable G43.109 Active 2722351 Problem Pulmonary embolus I26.99 13 Oct, 2011 0 38625683 Problem Morbid obesity E66.01 Active 45346 6002 Problem Nonintractable migraine G43.009 08 Oct, 2015 0 802610314 Problem Hypothyroidism E03.9 Active 49998 008 Problem Renal stones N20.0 Active 7163119 7 Problem Coronary artery disease I25.10 Active 28146057 Problem Hyperlipidemia LDL goal <70 E78.5 Ac tive [id number] ALLERGIES No Information ENCOUNTERS Encounter Location Date Diagnosis [facility] [address] [facility] [id number] [address] [place] [address] Jan, [facility] [address] [facility] [id number] [address] [place] [address] Dec, Hematuria, unspecified type R31.9 [facility] [address] [facility] [id number] [address] [place] [address] Nov, Hematuria, unspecified type R31.[address] [address] Nov, Other microscopic hematuria R31.29 [facility] [address] [facility] [id number] [address] [place] [address] Nov, Vaginal gena B37.3 ; Othe r microscopic hematuria R31.29 and Morbid obesity E66.01 [facility] [address] [id number] [address] [place] [address] Nov, [facility] [address] [id number] [address] [place] [address] Nov, [facility] [address] [facility] [id number] [address] [place] [address] Nov, UTI symptoms R39.9 and Morbi d obesity E66.01 [facility] [address] [facility] [id number] [address] [place] [address] Nov, [facility] [address] [facility] [id number] [address] [place] [address] September, [facility] [address] [facility] [id number] [address] [place] [address] September, [facility] [address] [facility] [id number] [address] [place] [address] Aug, Right foot pain M79.671 and Morbid obesity E66.01 [facility] [address] [facility] [id number] [address] [place] [address] Jul, Right foot pain M79.671 and Morbid obesity E66.01 [facility] [address] [facility] [id number] [address] [place] [address] Jul, Injury of right foot, initia l encounter S99.921A and Morbid obesity E66.01 [facility] [address] [facility] [id number] [address] [place] [address] Jul, Recurrent syncope R55 and Mo rbid obesity E66.01 [facility] [address] [place] [id number] [address] [place] [address] Jul, [facility] [address] [place] [id number] [address] [place] [address] Jun, Hematuria, unspecified type R31.9 and BMI 50.0-59.9, adult Z68.43 [facility] [address] [place] [id number] [address] [place] [address] Jun, [address] [address] Jun, nursing home current use of anticoagulant Z 79.01 [facility] [address] [address] May, Ankle pain, right M25.571 an d BMI 50.0-59.9, adult Z68.43 [place] [address] [address] May, [facility] [address] [address] May, [facility] [address] [address] Apr, [facility] [address] [address] Apr, [place] [address] [address] Apr, [facility] [address] [address] Apr, BMI 50.0-59.9, adult Z68.43 and Weakness R53.1 [facility] [address] [address] Apr, [facility] [address] [place] [id number] [place] [address] Apr, Dysuria R30.0 ; Hematuria R3 1.9 ; Renal lithiasis N20.0 and BMI 50.0-59.9, adult Z68.43 [place] [address] [address] Apr, [place] [address] [address] Apr, [place] [address] [address] Apr, Hypothyroidism E03.9 [place] [address] [address] Apr, Burning with urination R30.0 ; Type 2 diabetes mellitus with diabetic neuropathic arthropathy, 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 ; Acute bilateral low back pain without sciatica M54.5 and BMI 50.0- 59.9, adult Z68.43 [place] [address] [address] Mar, Hypothyroidism E03.9 [place] [address] [address] Feb, [facility] [place] [address] [address] 15 Jan, 2018 [place] [address] [address] 07 Jan, 2018 Acute non-recurrent maxillar y sinusitis J01.00 and BMI 50.0-59.9, adult Z68.43 [facility] [place] [address] [address] 04 Jan, 2018 Congestion of upper respirat ory tract J98.8 and BMI 50.0-59.9, adult Z68.43 [place] [address] [address] Dec, Type 2 diabetes mellitus wit h diabetic neuropathic arthropathy, without long-term current use of insulin E11.610 ; Morbid obesity with BMI of 50.0-59.9, adult Z68.43 ; Hypothyroidism E03.9 ; Coronary artery disease I25.10 ; Hyperlipidemia LDL goal <70 E78.5 ; Right lower quadrant abdominal pain R10.31 and Acute cystitis with hematuria N30.01 [facility] [address] [place] [address] Dec, Migraine with aura and witho ut status migrainosus, not intractable G43.109 ; Dehydration symptoms R63.8 and BMI 50.0-59.9, adult Z68.43 [facility] [address] [address] Oct, [facility] [address] [address] Oct, [facility] [address] [address] Oct, [facility] [address] [address] September, [facility] [address] [place] [id number] [address] [place] [address] September, Type 2 diabetes mellitus wit h diabetic neuropathic arthropathy, without long-term current use of insulin E11.610 ; Hyperlipidemia, unspecified hyperlipidemia type E78.5 ; Personal history of pulmonary embolism Z86.711 ; Coronary artery disease I25.10 and Hypothyroidism E03.9 [facility] [address] [address] September, [facility] [address] [place] [id number] [address] [place] [address] Aug, Type 2 diabetes mellitus wit h [...] without aura and with status migrainosus G43.011 [place] [address] [place] [id number] [address] [place] [address] Aug, [place] [address] [place] [id number] [address] [place] [address] Aug, [place] [address] [place] [id number] [place] [address] Jul, Renal stones N20.0 [facility] [address] [place] [id number] [address] [place] [address] Jun, Back pain M54.9 ; Kidney sto radha N20.0 and BMI 50.0-59.9, adult Z68.43 [place] [address] [address] Jun, [place] [address] [address] Apr, [place] [address] [address] Apr, [place] [address] [address] Apr, Right foot pain M79.671 ; Ac [place] gout involving toe of right foot, 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 and Arthritis M19.90 [place] [address] [address] Apr, Gastroesophageal reflux dise ase without esophagitis K21.9 [place] [address] [place] [id number] [address] [place] [address] Mar, Hypothyroidism, unspecified E03.9 [place] [address] [place] [id number] [address] [place] [address] Feb, [place] [address] [place] [id number] [place] [address] 25 Jan, 2017 Cervicalgia of occipito-atla nto-axial region M54.2 and Persistent headaches R51 [facility] [address] [place] [id number] [address] [place] [address] 20 Jan, 2017 [place] [address] [address] 12 Jan, 2017 Intractable migraine without aura and with status migrainosus G43.011 ; Cervical spine pain M54.2 ; Hyperlipidemia, unspecified hyperlipidemia type E78.5 ; Hypothyroidism E03.9 and Metabolic syndrome E88.81 [facility] [address] [address] Jan, Hypothyroidism, unspecified E03.9 [place] [address] [address] Dec, Hypothyroidism, unspecified E03.9 [place] [address] [address] Dec, Hypothyroidism E03.9 [place] [address] [address] Nov, Laceration of left great toe w/o foreign body w/o damage to nail, initial encounter S91.112A [facility] [address] [address] Oct, Pain in left knee M25.562 an d Arthritis M19.90 [facility] [address] [address] Oct, Hypothyroidism, unspecified E03.9 and Hyperlipidemia, unspecified hyperlipidemia type E78.5 [facility] [address] [place] [address] Oct, Gastroesophageal reflux dise ase without esophagitis K21.9 [place] [address] [place] [id number] [address] [place] [address] 14 Oct, 2016 Metabolic syndrome E88.81 ; Personal history of pulmonary embolism Z86.711 ; Other specified hypothyroidism E03.8 and Hyperlipidemia, unspecified hyperlipidemia type E78.5 [place] [address] [place] [id number] [address] [place] [address] 13 Oct, 2017 Personal history of pulmonar y embolism Z86.711 ; Dysuria R30.0 ; Metabolic syndrome E88.81 ; Other specified hypothyroidism E03.8 ; Hyperlipidemia, unspecified hyperlipidemia type E78.5 and Morbid obesity with BMI of 50.0-59.9, adult Z68.43 [place] [address] [address] September, [facility] [place] [address] [address] September, Wrist pain, left M25.532 and Acute pain of left knee M25.562 [place] [address] [address] Jul, Dysuria R30.0 [place] [address] [address] Jul, Dysuria R30.0 [place] [address] [place] [id number] [place] [address] Jul, Left lower quadrant pain R10 .32 [place] [address] [place] [id number] [place] [address] Jul, [place] [address] [address] Jul, Coronary artery disease I25. 10 ; Family history of diabetes mellitus Z83.3 ; Morbid obesity with BMI of 50.0-59.9, adult Z68.43 ; Metabolic syndrome E88.81 ; Personal history of pulmonary embolism Z86.711 ; Gastroesophageal reflux disease without esophagitis K21.9 ; Hypothyroidism, unspecified E03.9 ; Hyperlipidemia, unspecified hyperlipidemia type E78.5 and Left lower quadrant pain R10.32 [facility] [address] [address] Jul, [facility] [address] [address] 08 Jul, 2016 Morbid obesity with BMI of 5 0.0-59.9, adult Z68.43 [facility] [address] [address] 07 Jul, 2016 Generalized abdominal pain R 10.84 [facility] [address] [address] 02 Jun, 2016 Muscle strain of right upper back, initial encounter S29.012A [facility] [address] [address] May, Foreign body (FB) in soft ti ssue M79.[address] [address] Mar, Hypothyroidism, unspecified E03.9 and Arthritis M19.[address] [address] Feb, Coronary artery disease I25. 10 ; Morbid obesity with BMI of 50.0- 59.9, adult Z68.43 ; Metabolic syndrome E88.81 ; Gastroesophageal reflux disease without esophagitis K21.9 ; Hypothyroidism, unspecified E03.9 ; Personal history of pulmonary embolism Z86.711 and Hyperlipidemia, unspecified hyperlipidemia type E78.[address] [address] Feb, [facility] [address] [address] Jan, Acute right-sided thoracic b ack pain M54.[address] [address] Jan, Acute pain of left knee M25. [address] [address] Dec, Dysuria R30.0 ; Metabolic sy ndrome E88.81 ; Acute pain of left knee M25.562 ; Acute cystitis with hematuria N30.01 and Acute left eye pain H57.12 [place] [address] [facility] [id number] [address] [place] [address] Dec, [place] [address] [facility] [id number] [address] [place] [address] Dec, [place] [address] [facility] [id number] [address] [place] [address] Dec, Hypothyroidism, unspecified E03.9 [place] [address] [facility] [id number] [address] [place] [address] Dec, [place] [address] [place] [id number] [place] [address] Nov, Peripheral edema R60.9 and A cute pain of left knee M25.562 [facility] [place] [address] [place] [id number] [address] [place] [address] September, [place] [address] [place] [id number] [address] [place] [address] September, Metabolic syndrome E88.81 an d Allergy, subsequent encounter T78.40XD [facility] [place] [id number] [address] [place] [address] September, Muscle strain T14.[address] [id number] [address] [place] [address] Aug, Chest pressure R07.89 ; Jasper bolic syndrome E88.81 ; Morbid obesity with BMI of 50.0-59.9, adult Z68.43 ; Esophageal reflux 530.81 and Shortness of breath R06.02 [place] [address] [facility] [id number] [address] [place] [address] Aug, [place] [address] [place] [id number] [address] [place] [address] Aug, [place] [address] [address] Aug, Hypothyroidism, unspecified E03.9 [facility] [address] [address] Aug, Routine health maintenance Z 00.00 [facility] [address] [address] Aug, [facility] [address] [address] Jul, Routine health maintenance Z 00.00 ; Family history of diabetes mellitus Z83.3 ; Family history of cancer Z80.9 and Morbid obesity with BMI of 50.0-59.9, adult Z68.43 [facility] [address] [address] Jul, Allergic rhinitis J30.9 and Postnasal drip R09.82 [place] [address] [address] Jul, Influenza J11.1 [facility] [address] [address] Jul, Dysuria R30.0 [place] [address] [address] Apr, [place] [address] [address] Mar, Acute upper respiratory infe ction, unspecified J06.9 and Hypothyroidism E03.9 [place] [address] [address] Mar, [place] [address] [address] Feb, Coronary artery disease I25. 10 [place] [address] [address] 16 Feb, 2015 Left foot pain M79.672 [place] [address] [facility] [id number] [address] [place] [address] Jan, UTI (urinary tract infection ) 599.0 [facility] [address] [id number] [address] [place] [address] Jan, Urinary tract infection, sit e not specified 599.0 [facility] [address] [id number] [address] [place] [address] Jan, Urinary tract infection, sit e not specified 599.0 [facility] [address] [id number] [address] [place] [address] Jan, [place] [address] [id number] [address] [place] [address] Dec, Headache 784.0 [facility] [address] [id number] [address] [place] [address] Dec, Urinary tract infection, sit e not specified 599.0 [place] [address] [id number] [address] [place] [address] Dec, Urinary tract infection, sit e not specified 599.0 [place] [address] [id number] [address] [place] [address] Dec, Urinary tract infection, sit e not specified 599.0 [place] [address] [id number] [address] [place] [address] Nov, Unspecified sleep apnea 780. 57 ; Encounter for long-term (current) use of anticoagulants V58.61 ; Routine general medical examination at health care facility V70.0 and Arthritis of both knees 716.96 [place] [address] [id number] [address] [place] [address] September, Cat bite of hand 882.0 and R ectal bleeding 569.3 [facility] [address] [id number] [address] [place] [address] Aug, [facility] [address] [id number] [address] [place] [address] Aug, [facility] [address] [id number] [address] [place] [address], [place] [address] Jul, [facility] [address] [id number] [address] [place] [address], [place] [address] Jul, [facility] [address] [id number] [address] [place] [address], [place] [address] Jul, [facility] [address] [id number] [address] [place] [address], [place] [address] Jul, [facility] [address] [id number] [address] [place] [address], [place] [address] Jul, [facility] [address] [id number] [address] [place] [address], [place] [address] Jul, [facility] [address] [id number] [address] [place] [address], [place] [address] Jul, [facility] [address] [id number] [address] [place] [address], [place] [address] Jul, [facility] [address] [id number] [address] [place] [address], [place] [address] May, [facility] [address] [id number] [address] [place] [address], [place] [address] May, [facility] [address] [id number] [address] [place] [address], [place] [address] May, [facility] [address] [id number] [address] [place] [address], [place] [address] May, [facility] [address] [id number] [address] [place] [address], [place] [address] May, [facility] [address] [id number] [address] [place] [address], [place] [address] May, [facility] [address] [id number] [address] [place] [address], [place] [address] May, [facility] [address] [id number] [facility] [place] [address] Mar, [facility] [address] [id number] [facility] [place] [address] Mar, [facility] [address] [id number] [facility] [place] [address] 08 Jan, 2013 [facility] [address] [id number] [facility] [place] [address] 08 Jan, 2013 [facility] [address] [id number] [facility] [place] [address] 08 Jan, 2013 [facility] [address] [id number] [address] [place] [address], [place] [address] 08 Jan, 2013 [facility] [address] [id number] [address] [place] [address], [place] [address] 05 Jan, 2013 [facility] [address] [id number] [address] [place] [address], [place] [address] Jan, 2013 [facility] [address] [id number] [address] [place] [address], [place] [address] Dec, [facility] [address] [id number] [address] [place] [address], [place] [address] Dec, [facility] [address] [id number] [address] [place] [address], [place] [address] Dec, [facility] [address] [id number] [address] [place] [address], [place] [address] Dec, [facility] [address] [id number] [address] [place] [address], [place] [address] Dec, [facility] [address] [id number] [address] [place] [address], [place] [address] Dec, [facility] [address] [id number] [address] [place] [address], [place] [address] Dec, [facility] [address] [id number] [address] [place] [address], [place] [address] Dec, [facility] [address] [id number] [facility] [place] [address] Dec, [facility] [address] [id number] [address] [place] [address], [place] [address] Dec, [facility] [address] [id number] [facility] [place] [address] Nov, [facility] [address] [id number] [address] [place] [address], [place] [address] Nov, [facility] [address] [id number] [address] [place] [address], [place] [address] September, [facility] [address] [id number] [address] [place] [address], [place] [address] September, [facility] [address] [id number] [address] [place] [address], [place] [address] September, [facility] [address] [id number] [address] [place] [address], [place] [address] September, [facility] [address] [id number] [address] [place] [address], [place] [address] Aug, [facility] [address] [id number] [address] [place] [address], [place] [address] Aug, [facility] [address] [id number] [address] [place] [address], [place] [address] Aug, [facility] [address] [id number] [address] [place] [address], [place] [address] Aug, [facility] [address] [id number] [address] [place] [address], [place] [address] Aug, [facility] [address] [id number] [address] [place] [address], [place] [address] Aug, [facility] [address] [id number] [address] [place] [address], [place] [address] Aug, [facility] [address] [id number] [address] [place] [address] 08 Aug, 2013 [facility] [address] [id number] [address] [place] [address], [place] [address] 07 Aug, 2013 [facility] [address] [id number] [address] [place] [address], [place] [address] Aug, [facility] [address] [id number] [address] [place] [address], [place] [address] 07 Aug, 2013 [facility] [address] [id number] [address] [place] [address], [place] [address] Aug, [facility] [address] [id number] [address] [place] [address], [place] [address] Jul, [facility] [address] [id number] [address] [place] [address], [place] [address] Jul, [facility] [address] [id number] [address] [place] [address], [place] [address] Jul, [facility] [address] [id number] [address] [place] [address], [place] [address] Jul, [facility] [address] [id number] [address] [place] [address], [place] [address] Jul, [facility] [address] [id number] [address] [place] [address], [place] [address] Jul, [facility] [address] [id number] [address] [place] [address], [place] [address] 05 Jul, 2013 [facility] [address] [id number] [address] [place] [address], [place] [address] 05 Jul, 2013 [facility] [address] [id number] [address] [place] [address], [place] [address] Jul, [facility] [address] [id number] [address] [place] [address], [place] [address] Jul, [facility] [address] [id number] [address] [place] [address], [place] [address] Jun, [facility] [address] [id number] [facility] [place] [address] Jun, [facility] [address] [id number] [address] [place] [address], [place] [address] Jun, [facility] [address] [id number] [address] [place] [address], [place] [address] Jun, [facility] [address] [id number] [address] [place] [address], [place] [address] Jun, [facility] [address] [id number] [address] [place] [address], [place] [address] Jun, [facility] [address] [id number] [address] [place] [address], [place] [address] Jun, [facility] [address] [id number] [address] [place] [address], [place] [address] Jun, [facility] [address] [id number] [address] [place] [address], [place] [address] Jun, [facility] [address] [id number] [address] [place] [address], [place] [address] Jun, [facility] [address] [id number] [address] [place] [address], [place] [address] Jun, [facility] [address] [id number] [address] [place] [address], [place] [address] Jun, [facility] [address] [id number] [address] [place] [address], [place] [address] May, [facility] [address] [id number] [address] [place] [address], [place] [address] May, [facility] [address] [id number] [address] [place] [address], [place] [address] May, [facility] [address] [id number] [address] [place] [address], [place] [address] May, [facility] [address] [id number] [address] [place] [address], [place] [address] May, [facility] [address] [id number] [address] [place] [address], [place] [address] May, [facility] [address] [id number] [address] [place] [address], [place] [address] May, [facility] [address] [id number] [address] [place] [address], [place] [address] May, [facility] [address] [id number] [address] [place] [address], [place] [address] May, [facility] [address] [id number] [address] [place] [address], [place] [address] May, [facility] [address] [id number] [address] [place] [address], [place] [address] May, [facility] [address] [id number] [address] [place] [address], [place] [address] May, [facility] [address] [id number] [address] [place] [address], [place] [address] May, [facility] [address] [id number] [address] [place] [address], [place] [address] May, [facility] [address] [id number] [address] [place] [address], [place] [address] May, [facility] [address] [id number] [address] [place] [address], [place] [address] Apr, [facility] [address] [id number] [address] [place] [address], [place] [address] Apr, [facility] [address] [id number] [address] [place] [address], [place] [address] Apr, [facility] [address] [id number] [address] [place] [address], [place] [address] Apr, [facility] [address] [id number] [address] [place] [address], [place] [address] Mar, [facility] [address] [id number] [address] [place] [address], [place] [address] Mar, [facility] [address] [id number] [address] [place] [address], [place] [address] Mar, [facility] [address] [id number] [address] [place] [address], [place] [address] Mar, [facility] [address] [id number] [address] [place] [address], [place] [address] Mar, [facility] [address] [id number] [address] [place] [address], [place] [address] Mar, [facility] [address] [id number] [address] [place] [address], [place] [address] Mar, [facility] [address] [id number] [address] [place] [address], [place] [address] Mar, [facility] [address] [id number] [address] [place] [address] Mar, [facility] [address] [id number] [address] [place] [address], [place] [address] Mar, [facility] [address] [id number] [address] [place] [address] Mar, [facility] [address] [id number] [address] [place] [address] Mar, [facility] [address] [id number] [address] [place] [address] Feb, [facility] [address] [id number] [address] [place] [address], [place] [address] 18 Sep2012 [facility] [address] [id number] [address] [place] [address] 17 Sep2012 [facility] [address] [id number] [address] [place] [address] 06 Sep2012 [facility] [address] [id number] [address] [place] [address] 04 Jan, 2013 [facility] [address] [id number] [address] [place] [address], [place] [address] Jan, [facility] [address] [id number] [address] [place] [address], [place] [address] Dec, [facility] [address] [id number] [address] [place] [address], [place] [address] Dec, [facility] [address] [id number] [address] [place] [address], [place] [address] Dec, [facility] [address] [id number] [address] [place] [address], [place] [address] Dec, [facility] [address] [id number] [address] [place] [address], [place] [address] Dec, [facility] [address] [id number] [address] [place] [address], [place] [address] Dec, [facility] [address] [id number] [address] [place] [address], [place] [address] Dec, [facility] [address] [id number] [address] [place] [address], [place] [address] Dec, [facility] [address] [id number] [address] [place] [address], [place] [address] Nov, [facility] [address] [id number] [address] [place] [address], [place] [address] Nov, [facility] [address] [id number] [address] [place] [address], [place] [address] Nov, [facility] [address] [id number] [address] [place] [address], [place] [address] Nov, [facility] [address] [id number] [address] [place] [address], [place] [address] Nov, [facility] [address] [id number] [address] [place] [address], [place] [address] Nov, [facility] [address] [id number] [address] [place] [address], [place] [address] Oct, [facility] [place] [address] [id number] [place] [id number] Oct, [facility] [place] [address] [id number] [place] [id number] Oct, [facility] [place] [address] [id number] [place] [id number] Oct, [facility] [place] [address] [id number] [place] [id number] Oct, [facility] [address] [id number] [address] [place] [address], [place] [address] Oct, [facility] [address] [id number] [address] [place] [address], [place] [address] Oct, [facility] [address] [id number] [address] [place] [address], [place] [address] Oct, [facility] [address] [id number] [address] [place] [address], [place] [address] Oct, [facility] [address] [id number] [address] [place] [address], [place] [address] Oct, [facility] [address] [id number] [address] [place] [address], [place] [address] Oct, [facility] [address] [id number] [address] [place] [address] September, [facility] [address] [id number] [address] [place] [address], [place] [address] Aug, [facility] [address] [id number] [address] [place] [address], [place] [address] Aug, [facility] [address] [id number] [address] [place] [address], [place] [address] Aug, [facility] [address] [id number] [address] [place] [address], [place] [address] Aug, [facility] [address] [id number] [address] [place] [address], [place] [address] 24 Jul, 2012 [facility] [address] [id number] [address] [place] [address], [place] [address] 20 Jul, 2012 [facility] [address] [id number] [address] [place] [address], [place] [address] 20 Jul, 2012 [facility] [address] [id number] [address] [place] [address], [place] [address] 05 Jul, 2012 [facility] [address] [id number] [address] [place] [address], [place] [address] 04 Jul, 2012 [facility] [address] [id number] [address] [place] [address], [place] [address] 19 Jun, 2012 [facility] [address] [id number] [address] [place] [address], [place] [address] 13 Jun, 2012 [facility] [address] [id number] [address] [place] [address], [place] [address] Jun, [facility] [address] [id number] [address] [place] [address], [place] [address] May, [facility] [address] [id number] [address] [place] [address], [place] [address] 24 May, 2012 [facility] [address] [id number] [address] [place] [address], [place] [address] 14 May, 2012 [facility] [address] [id number] [address] [place] [address], [place] [address] May, [facility] [address] [id number] [address] [place] [address], [place] [address] May, [facility] [address] [id number] [address] [place] [address], [place] [address] May, [facility] [address] [id number] [address] [place] [address], [place] [address] Apr, [facility] [address] [id number] [address] [place] [address], [place] [address] Apr, [facility] [address] [id number] [address] [place] [address], [place] [address] Apr, [facility] [address] [id number] [address] [place] [address], [place] [address] Apr, [facility] [address] [id number] [address] [place] [address], [place] [address] Apr, [facility] [address] [id number] [address] [place] [address], [place] [address] Apr, [facility] [address] [id number] [address] [place] [address], [place] [address] Apr, [facility] [address] [id number] [address] [place] [address], [place] [address] Mar, [facility] [address] [id number] [address] [place] [address], [place] [address] Mar, [facility] [address] [id number] [address] [place] [address], [place] [address] Mar, [facility] [address] [id number] [address] [place] [address], [place] [address] Mar, [facility] [address] [id number] [address] [place] [address] 18 Jan, 2012 [facility] [address] [id number] [address] [place] [address], [place] [address] Jan, [facility] [address] [id number] [address] [place] [address] Jan, [facility] [address] [id number] [address] [place] [address], [place] [address] Jan, [facility] [address] [id number] [place] [id number] Dec, [facility] [address] [id number] [address] [place] [address], [place] [address] Dec, [facility] [address] [id number] [id number] Dec[facility] [address] [facility] [id number] [address] [place] [address] Dec, [facility] [address] [facility] [id number] [address] [place] [address] Dec, [facility] [address] [facility] [id number] [address] [place] [address] Dec, [facility] [address] [facility] [id number] [address] [place] [address] Nov, [facility] [address] [facility] [id number] [address] [place] [address] Nov, [facility] [address] [facility] [id number] [address] [place] [address] Nov, IMMUNIZATIONS No Known Immunizations SOCIAL HISTORY Never Assessed REASON FOR VISIT PLAN OF CARE VITAL SIGNS Height 62 in 2013-12-16 Weight 322 lbs 2013-12-16 Temperature 96.9 degrees Fahrenheit 2013-12-16 Heart Rate 72 bpm 2013-12-16 Respiratory Rate 20 2013-12-16 Blood pressure systolic 124 mmHg 2013-12-16 Blood pressure diastolic 72 mmHg 2013-12-16 MEDICATIONS Unknown Medications RESULTS No Results PROCEDURES Procedure Date Ordered Result Body Site URINE CULTURE/COLONY COUNT Dec 16, 2013 URINALYSIS, AUTO, W/O SCOPE Dec 16, 2013 INSTRUCTIONS MEDICATIONS ADMINISTERED No Known Medications [...] asthma(493.90) Medical History Near syncope Medical History nursing home current use of anticoagulant Medical History [...]
--- OUTSIDE RECORDS SUMMARY | 2019-11-03 19:33 | XMS REPORT ---
Author Author Anca Lucero Doctor Organization [facility] Address Unknown Phone Unavailable Care Team Providers Care Commissioned Sales Associate Name Role Phone Migration, Doctor Unavailable Unavailable PROBLEMS Type Condition ICD9-CM Code QVS45-LY Code Onset Dates Condition S tatus SNOMED Code Problem Shortness of breath R06.02 Apr, 0 577145565 Problem Unspecified hypothyroidism E03.9 0 33357903 Problem Generalized anxiety disorder F41.1 Apr, 8 0 33609756 Problem Esophageal reflux K21.9 0 24 2126398 Problem Dyslipidemia E78.5 12 Oct, 2017 0 3709 64077 Problem Osteoarthritis of right knee M17.11 May, 0 0 081009742 Problem Unspecified sleep apnea G47.30 0 12690818 Problem Morbid obesity with BMI of 50.0-59.9, adult Z68.43 Active 507311979 Problem Migraine with aura and without status migrainosu s, not intractable G43.109 Active 0381599 Problem Pulmonary embolus I26.99 13 Oct, 2011 0 40494316 Problem Morbid obesity E66.01 Active 42897 6002 Problem Nonintractable migraine G43.009 08 Oct, 2015 0 154089525 Problem Hypothyroidism E03.9 Active 98568 008 Problem Renal stones N20.0 Active 5994708 7 Problem Coronary artery disease I25.10 Active 02817080 Problem Hyperlipidemia LDL goal <70 E78.5 Ac tive 92902829 ALLERGIES No Information ENCOUNTERS Encounter Location Date Diagnosis [facility] [address] [facility] [id number] [address] [place] [address] Nov, Hematuria, unspecified type R31.[address] [address] Nov, Other microscopic hematuria R31.29 [facility] [address] [facility] [id number] [address] [place] [address] Nov, Vaginal gena B37.3 ; Othe r microscopic hematuria R31.29 and Morbid obesity E66.01 [facility] [address] [id number] [address] [place] [address] Nov, [facility] [address] [facility] [id number] [address] [place] [address] Nov, [facility] [address] [facility] [id number] [address] [place] [address] Nov, UTI symptoms R39.9 and Morbi d obesity E66.01 [facility] [address] [id number] [address] [place] [address] Nov, [facility] [address] [facility] [id number] [address] [place] [address] September, [facility] [address] [facility] [id number] [address] [place] [address] September, [facility] [address] [facility] [id number] [address] [place] [address] Aug, Right foot pain M79.671 and Morbid obesity E66.01 [facility] [address] [facility] [id number] [address] [place] [address] Jul, Right foot pain M79.671 and Morbid obesity E66.01 [facility] [address] [facility] [id number] [address] [place] [address] Jul, Injury of right foot, initia l encounter S99.921A and Morbid obesity E66.01 [facility] [address] [facility] [id number] [address] [place] [address] Jul, Recurrent syncope R55 and Mo rbid obesity E66.01 [facility] [address] [facility] [id number] [address] [place] [address] Jul, [facility] [address] [facility] [id number] [address] [place] [address] Jun, Hematuria, unspecified type R31.9 and BMI 50.0-59.9, adult Z68.43 [facility] [address] [facility] [id number] [address] [place] [address] 07 Jun, [address] [address] Jun, 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 [facility] [address] [facility] [id number] [address] [place] [address] May, Ankle pain, right M25.571 an d BMI 50.0-59.9, adult Z68.43 [facility] [address] [facility] [id number] [address] [place] [address] May, [facility] [address] [facility] [id number] [address] [place] [address] May, [facility] [address] [facility] [id number] [address] [place] [address] Apr, [facility] [address] [facility] [id number] [address] [place] [address] Apr, [facility] [address] [facility] [id number] [address] [place] [address] Apr, [facility] [address] [facility] [id number] [address] [place] [address] Apr, BMI 50.0-59.9, adult Z68.43 and Weakness R53.1 [facility] [address] [facility] [id number] [address] [place] [address] Apr, [facility] [address] [facility] [id number] [address] [place] [address] Apr, Dysuria R30.0 ; Hematuria R3 1.9 ; Renal lithiasis N20.0 and BMI 50.0-59.9, adult Z68.43 [facility] [address] [facility] [id number] [address] [place] [address] Apr, [facility] [address] [facility] [id number] [address] [place] [address] Apr, [place] [address] [address] Apr, Hypothyroidism E03.9 [place] [address] [address] Apr, Burning with urination R30.0 ; Type 2 diabetes mellitus with diabetic neuropathic arthropathy, 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 ; Acute bilateral low back pain without sciatica M54.5 and BMI 50.0- 59.9, adult Z68.43 [place] [address] [address] Mar, Hypothyroidism E03.9 [place] [address] [address] Feb, [facility] [address] [address] 15 Jan, 2018 [place] [address] [address] 07 Jan, 2018 Acute non-recurrent maxillar y sinusitis J01.00 and BMI 50.0-59.9, adult Z68.43 [facility] [address] [address] 04 Jan, 2018 Congestion of upper respirat ory tract J98.8 and BMI 50.0-59.9, adult Z68.43 [place] [address] [address] Dec, Type 2 diabetes mellitus wit h diabetic neuropathic arthropathy, without long-term current use of insulin E11.610 ; Morbid obesity with BMI of 50.0-59.9, adult Z68.43 ; Hypothyroidism E03.9 ; Coronary artery disease I25.10 ; Hyperlipidemia LDL goal <70 E78.5 ; Right lower quadrant abdominal pain R10.31 and Acute cystitis with hematuria N30.01 [facility] [address] [address] Dec, Migraine with aura and witho ut status migrainosus, not intractable G43.109 ; Dehydration symptoms R63.8 and BMI 50.0-59.9, adult Z68.43 [place] [address] [address] Oct, [place] [address] [address] Oct, [place] [address] [address] Oct, [place] [address] [address] September, [place] [address] [address] September, Type 2 diabetes mellitus wit h diabetic neuropathic arthropathy, without long-term current use of insulin E11.610 ; Hyperlipidemia, unspecified hyperlipidemia type E78.5 ; Personal history of pulmonary embolism Z86.711 ; Coronary artery disease I25.10 and Hypothyroidism E03.[address] [address] September, [place] [address] [address] Aug, Type 2 diabetes mellitus wit h [...] and with status migrainosus G43.011 [place] [address] [address] Aug, [address] [address] Aug, [facility] [address] [address] Jul, Renal stones N20.0 [facility] [address] [address] Jun, Back pain M54.9 ; Kidney sto radha N20.0 and BMI 50.0-59.9, adult Z68.43 [facility] [address] [address] Jun, [facility] [address] [address] Apr, [place] [address] [address] Apr, [facility] [address] [address] Apr, Right foot pain M79.671 ; Ac [place] gout involving toe of right foot, 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 and Arthritis M19.90 [facility] [address] [address] 06 Apr, 2017 Gastroesophageal reflux dise ase without esophagitis K21.9 [place] [address] [address] 16 Mar, 2017 Hypothyroidism, unspecified E03.9 [facility] [address] [address] Feb, [place] [address] [address] 25 Jan, 2017 Cervicalgia of occipito-atla nto-axial region M54.2 and Persistent headaches R51 [place] [address] [place] [id number] [place] [address] 20 Jan, 2017 [facility] [address] [address] 12 Jan, 2017 Intractable migraine without aura and with status migrainosus G43.011 ; Cervical spine pain M54.2 ; Hyperlipidemia, unspecified hyperlipidemia type E78.5 ; Hypothyroidism E03.9 and Metabolic syndrome E88.81 [place] [address] [address] Jan, Hypothyroidism, unspecified E03.9 [place] [address] [address] Dec, Hypothyroidism, unspecified E03.9 [place] [address] [address] Dec, Hypothyroidism E03.9 [place] [address] [address] Nov, Laceration of left great toe w/o foreign body w/o damage to nail, initial encounter S91.112A [facility] [address] [address] Oct, Pain in left knee M25.562 an d Arthritis M19.90 [place] [address] [address] Oct, Hypothyroidism, unspecified E03.9 and Hyperlipidemia, unspecified hyperlipidemia type E78.5 [place] [address] [address] Oct, Gastroesophageal reflux dise ase without esophagitis K21.9 [place] [address] [address] 14 Oct, 2016 Metabolic syndrome E88.81 ; Personal history of pulmonary embolism Z86.711 ; Other specified hypothyroidism E03.8 and Hyperlipidemia, unspecified hyperlipidemia type E78.5 [place] [address] [address] 13 Oct, 2016 Personal history of pulmonar y embolism Z86.711 ; Dysuria R30.0 ; Metabolic syndrome E88.81 ; Other specified hypothyroidism E03.8 ; Hyperlipidemia, unspecified hyperlipidemia type E78.5 and Morbid obesity with BMI of 50.0-59.9, adult Z68.[address] [address] September, [facility] [address] [address] September, Wrist pain, left M25.532 and Acute pain of left knee M25.[address] [address] Jul, Dysuria R30.[address] [address] Jul, Dysuria R30.[address] [address] Jul, Left lower quadrant pain R10 .[address] [address] Jul, [address] [address] Jul, Coronary artery disease I25. 10 ; Family history of diabetes mellitus Z83.3 ; Morbid obesity with BMI of 50.0-59.9, adult Z68.43 ; Metabolic syndrome E88.81 ; Personal history of pulmonary embolism Z86.711 ; Gastroesophageal reflux disease without esophagitis K21.9 ; Hypothyroidism, unspecified E03.9 ; Hyperlipidemia, unspecified hyperlipidemia type E78.5 and Left lower quadrant pain R10.32 [facility] [address] [address] Jul, [facility] [address] [address] Jul, Morbid obesity with BMI of 5 0.0-59.9, adult Z68.43 [facility] [address] [address] Jul, Generalized abdominal pain R 10.84 [facility] [place] [address] [address] [place] [id number] [address] [place] [address] Jun, Muscle strain of right upper back, initial encounter S29.012A [facility] [place] [address] [address] [place] [id number] [address] [place] [address] May, Foreign body (FB) in soft ti ssue M79.5 [place] [address] [address] Mar, Hypothyroidism, unspecified E03.9 and Arthritis M19.90 [place] [address] [address] Feb, Coronary artery disease I25. 10 ; Morbid obesity with BMI of 50.0- 59.9, adult Z68.43 ; Metabolic syndrome E88.81 ; Gastroesophageal reflux disease without esophagitis K21.9 ; Hypothyroidism, unspecified E03.9 ; Personal history of pulmonary embolism Z86.711 and Hyperlipidemia, unspecified hyperlipidemia type E78.5 [place] [address] [address] [place] [id number] [address] [place] [address] Feb, [facility] [place] [address] [address] Jan, Acute right-sided thoracic b ack pain M54.6 [place] [address] [address] Jan, Acute pain of left knee M25. 562 [place] [address] [address] Dec, Dysuria R30.0 ; Metabolic sy ndrome E88.81 ; Acute pain of left knee M25.562 ; Acute cystitis with hematuria N30.01 and Acute left eye pain H57.12 [place] [address] [place] [id number] [address] [place] [address] Dec, [place] [address] [place] [id number] [address] [place] [address] Dec, [facility] [address] [facility] [id number] [address] [place] [address] Dec, Hypothyroidism, unspecified E03.9 [facility] [address] [facility] [id number] [address] [place] [address] Dec, [place] [address] [facility] [id number] [address] [place] [address] Nov, Peripheral edema R60.9 and A cute pain of left knee M25.562 [facility] [place] [address] [facility] [id number] [address] [place] [address] September, [place] [address] [facility] [id number] [address] [place] [address] September, Metabolic syndrome E88.81 an d Allergy, subsequent encounter T78.40XD [facility] [place] [address] [facility] [id number] [address] [place] [address] September, Muscle strain T14.8 [place] [address] [facility] [id number] [address] [place] [address] Aug, Chest pressure R07.89 ; [place] bolic syndrome E88.81 ; Morbid obesity with BMI of 50.0-59.9, adult Z68.43 ; Esophageal reflux 530.81 and Shortness of breath R06.02 [place] [address] [facility] [id number] [address] [place] [address] Aug, [place] [address] [facility] [id number] [address] [place] [address] Aug, [place] [address] [facility] [id number] [address] [place] [address] Aug, Hypothyroidism, unspecified E03.9 [place] [address] [facility] [id number] [address] [place] [address] Aug, Routine health maintenance Z 00.00 [facility] [address] [place] [id number] [address] [place] [address] Aug, [place] [address] [address] Jul, 2016 Routine health maintenance Z 00.00 ; Family history of diabetes mellitus Z83.3 ; Family history of cancer Z80.9 and Morbid obesity with BMI of 50.0-59.9, adult Z68.43 [facility] [address] [address] Jul, Allergic rhinitis J30.9 and Postnasal drip R09.82 [place] [address] [address] Jul, Influenza J11.1 [facility] [place] [address] [address] Jul, Dysuria R30.0 [place] [address] [address] Apr, [place] [address] [address] Mar, Acute upper respiratory infe ction, unspecified J06.9 and Hypothyroidism E03.9 [place] [address] [place] [id number] [address] [place] [address] Mar, [place] [address] [address] Feb, Coronary artery disease I25. 10 [place] [address] [place] [id number] [address] [place] [address] Feb, Left foot pain M79.672 [place] [address] [address] [place] [id number] [address] [place] [address] Jan, UTI (urinary tract infection ) 599.0 [place] [address] [address] [place] [id number] [address] [place] [address] Jan, Urinary tract infection, sit e not specified 599.0 [facility] [address] [id number] [address] [place] [address] Jan, Urinary tract infection, sit e not specified 599.0 [facility] [address] [id number] [address] [place] [address] Jan, [facility] [address] [id number] [address] [place] [address] Dec, Headache 784.0 [facility] [address] [id number] [address] [place] [address] Dec, Urinary tract infection, sit e not specified 599.0 [place] [address] [id number] [address] [place] [address] Dec, Urinary tract infection, sit e not specified 599.0 [place] [address] [id number] [address] [place] [address] Dec, Urinary tract infection, sit e not specified 599.0 [facility] [address] [id number] [address] [place] [address] Nov, Unspecified sleep apnea 780. 57 ; Encounter for long-term (current) use of anticoagulants V58.61 ; Routine general medical examination at health care facility V70.0 and Arthritis of both knees 716.96 [place] [address] [address] [facility] [id number] [address] [place] [address] September, Cat bite of hand 882.0 and R ectal bleeding 569.3 [facility] [address] [id number] [address] [place] [address] Aug, [facility] [address] [id number] [address] [place] [address] Aug, [facility] [address] [facility] [id number] [address] [place] [address] Jul, [facility] [address] [facility] [id number] [address] [place] [address] Jul, [facility] [address] [id number] [address] [place] [address], [place] [address] Jul, [facility] [address] [id number] [address] [place] [address], [place] [address] Jul, [facility] [address] [id number] [address] [place] [address], [place] [address] Jul, [facility] [address] [id number] [address] [place] [address], [place] [address] Jul, [facility] [address] [id number] [address] [place] [address], [place] [address] Jul, [facility] [address] [id number] [address] [place] [address], [place] [address] Jul, [facility] [address] [id number] [address] [place] [address], [place] [address] May, [facility] [address] [id number] [address] [place] [address], [place] [address] May, [facility] [address] [id number] [address] [place] [address], [place] [address] May, [facility] [address] [id number] [address] [place] [address], [place] [address] May, [facility] [address] [id number] [address] [place] [address], [place] [address] May, [facility] [address] [id number] [address] [place] [address], [place] [address] May, [facility] [address] [id number] [address] [place] [address], [place] [address] May, [facility] [address] [id number] [address] [place] [address], [place] [address] Mar, [facility] [address] [id number] [address] [place] [address], [place] [address] Mar, [facility] [address] [id number] [address] [place] [address], [place] [address] 08 Jan, 2013 [facility] [address] [id number] [address] [place] [address], [place] [address] 08 Jan, 2013 [facility] [address] [id number] [address] [place] [address], [place] [address] 08 Jan, 2013 [facility] [address] [id number] [address] [place] [address], [place] [address] 08 Jan, 2013 [facility] [address] [id number] [address] [place] [address], [place] [address] 05 Jan, 2013 [facility] [address] [id number] [address] [place] [address], [place] [address] 05 Jan, 2013 [facility] [address] [id number] [address] [place] [address], [place] [address] Dec, [facility] [address] [id number] [address] [place] [address], [place] [address] Dec, [facility] [address] [id number] [address] [place] [address], [place] [address] Dec, [facility] [address] [id number] [address] [place] [address], [place] [address] Dec, [facility] [address] [id number] [address] [place] [address], [place] [address] Dec, [facility] [address] [id number] [address] [place] [address], [place] [address] Dec, [facility] [address] [id number] [address] [place] [address], [place] [address] Dec, [facility] [address] [id number] [address] [place] [address], [place] [address] Dec, [facility] [address] [id number] [address] [place] [address], [place] [address] Dec, [facility] [address] [id number] [address] [place] [address], [place] [address] Dec, [facility] [address] [id number] [facility] [place] [address] Nov, [facility] [address] [id number] [address] [place] [address], [place] [address] Nov, [facility] [address] [id number] [address] [place] [address], [place] [address] September, [facility] [address] [id number] [address] [place] [address], [place] [address] September, [facility] [address] [id number] [address] [place] [address], [place] [address] September, [facility] [address] [id number] [address] [place] [address], [place] [address] September, [facility] [address] [id number] [address] [place] [address], [place] [address] Aug, [facility] [address] [id number] [address] [place] [address], [place] [address] Aug, [facility] [address] [id number] [address] [place] [address], [place] [address] Aug, [facility] [address] [id number] [address] [place] [address], [place] [address] Aug, [facility] [address] [id number] [address] [place] [address], [place] [address] Aug, [facility] [address] [id number] [address] [place] [address], [place] [address] Aug, [facility] [address] [id number] [address] [place] [address], [place] [address] Aug, [facility] [address] [id number] [address] [place] [address], [place] [address] Aug, [facility] [facility] [address] [id number] [address] [place] [address], [place] [address] Aug, [facility] [address] [id number] [address] [place] [address], [place] [address] 07 Aug, 2013 [facility] [address] [id number] [facility] [place] [address] Aug, [facility] [address] [id number] [address] [place] [address], [place] [address] Aug, [facility] [address] [id number] [facility] [place] [address] Jul, [facility] [address] [id number] [address] [place] [address], [place] [address] Jul, [facility] [address] [id number] [address] [place] [address], [place] [address] Jul, [facility] [address] [id number] [address] [place] [address], [place] [address] Jul, [facility] [address] [id number] [address] [place] [address], [place] [address] Jul, [facility] [address] [id number] [address] [place] [address], [place] [address] Jul, [facility] [address] [id number] [address] [place] [address], [place] [address] Jul, [facility] [address] [id number] [address] [place] [address], [place] [address] 05 Jul, 2013 [facility] [address] [id number] [address] [place] [address], [place] [address] Jul, [facility] [address] [id number] [address] [place] [address], [place] [address] Jul, [facility] [address] [id number] [address] [place] [address], [place] [address] Jun, [facility] [address] [id number] [address] [place] [address], [place] [address] Jun, [facility] [address] [id number] [address] [place] [address], [place] [address] 17 Jun, 2013 [facility] [address] [id number] [address] [place] [address], [place] [address] 17 Jun, 2013 [facility] [address] [id number] [address] [place] [address], [place] [address] Jun, [facility] [address] [id number] [address] [place] [address], [place] [address] Jun, [facility] [address] [id number] [address] [place] [address], [place] [address] Jun, [facility] [address] [id number] [address] [place] [address], [place] [address] Jun, [facility] [address] [id number] [address] [place] [address], [place] [address] Jun, [facility] [address] [id number] [address] [place] [address], [place] [address] Jun, [facility] [address] [id number] [address] [place] [address], [place] [address] Jun, [facility] [address] [id number] [address] [place] [address], [place] [address] Jun, [facility] [address] [id number] [address] [place] [address], [place] [address] May, [facility] [address] [id number] [address] [place] [address], [place] [address] May, [facility] [address] [id number] [address] [place] [address], [place] [address] May, [facility] [address] [id number] [address] [place] [address], [place] [address] May, [facility] [address] [id number] [address] [place] [address], [place] [address] May, [facility] [address] [id number] [address] [place] [address], [place] [address] May, [facility] [address] [id number] [address] [place] [address] May, [facility] [address] [id number] [address] [place] [address], [place] [address] May, [facility] [address] [id number] [address] [place] [address], [place] [address] May, [facility] [address] [id number] [address] [place] [address], [place] [address] May, [facility] [address] [id number] [address] [place] [address], [place] [address] May, [facility] [address] [id number] [address] [place] [address], [place] [address] May, [facility] [address] [id number] [address] [place] [address], [place] [address] May, [facility] [address] [id number] [address] [place] [address], [place] [address] May, [facility] [address] [id number] [address] [place] [address], [place] [address] May, [facility] [address] [id number] [address] [place] [address], [place] [address] Apr, [facility] [address] [id number] [address] [place] [address], [place] [address] Apr, [facility] [address] [id number] [address] [place] [address], [place] [address] Apr, [facility] [address] [id number] [address] [place] [address], [place] [address] Apr, [facility] [address] [id number] [address] [place] [address], [place] [address] Mar, [facility] [address] [id number] [address] [place] [address], [place] [address] Mar, [facility] [address] [id number] [address] [place] [address], [place] [address] Mar, [facility] [address] [id number] [address] [place] [address], [place] [address] Mar, [facility] [address] [id number] [address] [place] [address], [place] [address] Mar, [facility] [address] [id number] [address] [place] [address], [place] [address] Mar, [facility] [address] [id number] [address] [place] [address], [place] [address] Mar, [facility] [address] [id number] [address] [place] [address], [place] [address] Mar, [facility] [address] [id number] [address] [place] [address], [place] [address] Mar, [facility] [address] [id number] [address] [place] [address], [place] [address] Mar, [facility] [address] [id number] [address] [place] [address], [place] [address] Mar, [facility] [address] [id number] [address] [place] [address], [place] [address] Mar, [facility] [address] [id number] [address] [place] [address], [place] [address] Feb, [facility] [address] [id number] [address] [place] [address], [place] [address] 18 Jan, 2013 [facility] [address] [id number] [address] [place] [address], [place] [address] 17 Jan, 2013 [facility] [address] [id number] [address] [place] [address], [place] [address] 06 Jan, 2012 [facility] [address] [id number] [address] [place] [address], [place] [address] 04 Jan, 2013 [facility] [address] [id number] [address] [place] [address], [place] [address] 03 Jan, 2013 [facility] [address] [id number] [address] [place] [address], [place] [address] Dec, [facility] [address] [id number] [address] [place] [address], [place] [address] Dec, [facility] [address] [id number] [address] [place] [address], [place] [address] Dec, [facility] [address] [id number] [address] [place] [address], [place] [address] Dec, [facility] [address] [id number] [address] [place] [address], [place] [address] Dec, [facility] [address] [id number] [address] [place] [address], [place] [address] Dec, [facility] [address] [id number] [address] [place] [address], [place] [address] Dec, [facility] [address] [id number] [address] [place] [address], [place] [address] Dec, [facility] [address] [id number] [address] [place] [address], [place] [address] Nov, [facility] [address] [id number] [address] [place] [address], [place] [address] Nov, [facility] [address] [id number] [address] [place] [address], [place] [address] Nov, [facility] [address] [id number] [address] [place] [address], [place] [address] Nov, [facility] [address] [id number] [address] [place] [address], [place] [address] Nov, [facility] [address] [id number] [address] [place] [address], [place] [address] Nov, [facility] [address] [id number] [address] [place] [address], [place] [address] Oct, [facility] [place] [address] [id number] [place] [id number] Oct, [facility] [place] [address] [id number] [place] [id number] Oct, [facility] [place] [address] [id number] [place] [id number] Oct, [facility] [place] [address] [id number] [place] [id number] Oct, [facility] [address] [id number] [address] [place] [address], [place] [address] Oct, [facility] [address] [id number] [address] [place] [address], [place] [address] Oct, [facility] [address] [id number] [address] [place] [address], [place] [address] Oct, [facility] [address] [id number] [address] [place] [address], [place] [address] Oct, [facility] [address] [id number] [address] [place] [address], [place] [address] Oct, [facility] [address] [id number] [address] [place] [address] Oct, [facility] [address] [id number] [address] [place] [address], [place] [address] September, [facility] [address] [id number] [address] [place] [address] Aug, [facility] [address] [id number] [address] [place] [address] Aug, [facility] [address] [id number] [address] [place] [address] Aug, [facility] [address] [id number] [address] [place] [address], [place] [address] Aug, [facility] [address] [id number] [address] [place] [address], [place] [address] Jul, [facility] [address] [id number] [address] [place] [address] Jul, [facility] [address] [id number] [address] [place] [address] Jul, [facility] [address] [id number] [address] [place] [address], [place] [address] 05 Jul, 2012 [facility] [address] [id number] [address] [place] [address], [place] [address] 04 Jul, 2012 [facility] [address] [id number] [address] [place] [address], [place] [address] 19 Jun, 2012 [facility] [address] [id number] [address] [place] [address], [place] [address] 13 Jun, 2012 [facility] [address] [id number] [address] [place] [address], [place] [address] Jun, [facility] [address] [id number] [address] [place] [address], [place] [address] May, [facility] [address] [id number] [address] [place] [address], [place] [address] May, [facility] [address] [id number] [address] [place] [address], [place] [address] May, [facility] [address] [id number] [address] [place] [address], [place] [address] May, [facility] [address] [id number] [address] [place] [address], [place] [address] May, [facility] [address] [id number] [address] [place] [address], [place] [address] May, [facility] [address] [id number] [address] [place] [address], [place] [address] 18 Apr, 2012 [facility] [address] [id number] [address] [place] [address], [place] [address] 18 Apr, 2012 [facility] [address] [id number] [address] [place] [address], [place] [address] 13 Apr, 2012 [facility] [address] [id number] [address] [place] [address], [place] [address] 13 Apr, 2012 [facility] [address] [id number] [address] [place] [address], [place] [address] Apr, [facility] [address] [id number] [address] [place] [address], [place] [address] Apr, [facility] [address] [id number] [address] [place] [address], [place] [address] Apr, [facility] [address] [id number] [address] [place] [address], [place] [address] Mar, [facility] [address] [id number] [address] [place] [address], [place] [address] Mar, [facility] [address] [id number] [address] [place] [address], [place] [address] Mar, [facility] [address] [id number] [address] [place] [address], [place] [address] Mar, [facility] [address] [id number] [address] [place] [address], [place] [address] 18 Jan, 2012 [facility] [address] [id number] [address] [place] [address], [place] [address] 10 Jan, 2012 [facility] [address] [id number] [address] [place] [address], [place] [address] 06 Jan, 2012 [facility] [address] [id number] [address] [place] [address], [place] [address] Jan, [facility] [place] [address] [id number] [place] [id number] Dec, [facility] [address] [id number] [address] [place] [address], [place] [address] Dec, [facility] [place] [address] [id number] [place] [id number] Dec, [facility] [address] [id number] [address] [place] [address], [place] [address] Dec, [facility] [address] [id number] [address] [place] [address], [place] [address] Dec, [facility] [address] [facility] [id number] [address] [place] [address] Dec, [facility] [address] [facility] [id number] [address] [place] [address] Nov, [facility] [address] [facility] [id number] [address] [place] [address] Nov, [facility] [address] [facility] [id number] [address] [place] [address] Nov, IMMUNIZATIONS No Known Immunizations SOCIAL HISTORY [...] asthma(493.90) Medical History Near syncope 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
--- OUTSIDE RECORDS SUMMARY | 2019-11-03 19:33 | XMS REPORT ---
Author Author Anca Lucero Doctor Organization [facility] Address Unknown Phone Unavailable Care Team Providers Care Manager Logistic Name Role Phone Migration, Doctor Unavailable Unavailable PROBLEMS Type Condition ICD9-CM Code [id number] Code Onset Dates Condition S tatus SNOMED Code Problem Shortness of breath R06.02 Apr, 0 388510244 Problem Unspecified hypothyroidism E03.9 0 14715434 Problem Generalized anxiety disorder F41.1 Apr, 8 0 36006026 Problem Esophageal reflux K21.9 0 24 4861979 Problem Dyslipidemia E78.5 12 Oct, 2017 0 3709 63541 Problem Osteoarthritis of right knee M17.11 May, 0 0 277360302 Problem Unspecified sleep apnea G47.30 0 07516006 Problem Morbid obesity with BMI of 50.0-59.9, adult Z68.43 Active 590330357 Problem Migraine with aura and without status migrainosu s, not intractable G43.109 Active 5604257 Problem Pulmonary embolus I26.99 13 Oct, 2011 0 87808407 Problem Morbid obesity E66.01 Active 29555 6002 Problem Nonintractable migraine G43.009 08 Oct, 2015 0 796053296 Problem Hypothyroidism E03.9 Active 44358 008 Problem Renal stones N20.0 Active 5303026 7 Problem Coronary artery disease I25.10 Active 12995510 Problem Hyperlipidemia LDL goal <70 E78.5 Ac tive [id number] ALLERGIES No Information ENCOUNTERS Encounter Location Date Diagnosis [facility] [address] [facility] [id number] [address] [place] [address] Jan, [facility] [address] [facility] [id number] [address] [place] [address] Dec, Hematuria, unspecified type R31.9 [facility] [address] [facility] [id number] [address] [place] [address] Nov, Hematuria, unspecified type R31.[address] [address] Nov, Other microscopic hematuria R31.29 [facility] [address] [facility] [id number] [address] [place] [address] Nov, Vaginal gena B37.3 ; Othe r microscopic hematuria R31.29 and Morbid obesity E66.01 [facility] [address] [id number] [address] [place] [address] Nov, [facility] [address] [id number] [address] [place] [address] Nov, [facility] [address] [facility] [id number] [address] [place] [address] Nov, UTI symptoms R39.9 and Morbi d obesity E66.01 [facility] [address] [facility] [id number] [address] [place] [address] Nov, [facility] [address] [facility] [id number] [address] [place] [address] September, [facility] [address] [facility] [id number] [address] [place] [address] September, [facility] [address] [facility] [id number] [address] [place] [address] Aug, Right foot pain M79.671 and Morbid obesity E66.01 [facility] [address] [facility] [id number] [address] [place] [address] Jul, Right foot pain M79.671 and Morbid obesity E66.01 [facility] [address] [facility] [id number] [address] [place] [address] Jul, Injury of right foot, initia l encounter S99.921A and Morbid obesity E66.01 [facility] [address] [facility] [id number] [address] [place] [address] Jul, Recurrent syncope R55 and Mo rbid obesity E66.01 [facility] [address] [place] [id number] [address] [place] [address] Jul, [facility] [address] [place] [id number] [address] [place] [address] Jun, Hematuria, unspecified type R31.9 and BMI 50.0-59.9, adult Z68.43 [facility] [address] [place] [id number] [address] [place] [address] Jun, [address] [address] Jun, penitentiary current use of anticoagulant Z 79.01 [facility] [address] [address] May, Ankle pain, right M25.571 an d BMI 50.0-59.9, adult Z68.43 [place] [address] [address] May, [facility] [address] [address] May, [facility] [address] [address] Apr, [facility] [address] [address] Apr, [place] [address] [address] Apr, [facility] [address] [address] Apr, BMI 50.0-59.9, adult Z68.43 and Weakness R53.1 [facility] [address] [address] Apr, 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 ; Acute bilateral low back pain without sciatica M54.5 and BMI 50.0- 59.9, adult Z68.43 [place] [address] [address] Mar, Hypothyroidism E03.9 [place] [address] [address] Feb, [facility] [place] [address] [address] 15 Jan, 2018 [place] [address] [address] 07 Jan, 2018 Acute non-recurrent maxillar y sinusitis J01.00 and BMI 50.0-59.9, adult Z68.43 [facility] [place] [address] [address] 04 Jan, 2018 Congestion of upper respirat ory tract J98.8 and BMI 50.0-59.9, adult Z68.43 [place] [address] [address] Dec, Type 2 diabetes mellitus wit h diabetic neuropathic arthropathy, without long-term current use of insulin E11.610 ; Morbid obesity with BMI of 50.0-59.9, adult Z68.43 ; Hypothyroidism E03.9 ; Coronary artery disease I25.10 ; Hyperlipidemia LDL goal <70 E78.5 ; Right lower quadrant abdominal pain R10.31 and Acute cystitis with hematuria N30.01 [facility] [id number] [place] [address] Dec, Migraine with aura and witho ut status migrainosus, not intractable G43.109 ; Dehydration symptoms R63.8 and BMI 50.0-59.9, adult Z68.43 [facility] [address] [address] Oct, [facility] [address] [address] Oct, [facility] [address] [address] Oct, [facility] [address] [address] September, [facility] [address] [place] [id number] [address] [place] [address] September, Type 2 diabetes mellitus wit h diabetic neuropathic arthropathy, without long-term current use of insulin E11.610 ; Hyperlipidemia, unspecified hyperlipidemia type E78.5 ; Personal history of pulmonary embolism Z86.711 ; Coronary artery disease I25.10 and Hypothyroidism E03.9 [facility] [address] [address] September, [facility] [address] [place] [id number] [address] [place] [address] Aug, Type 2 diabetes mellitus wit h [...] and with status migrainosus G43.011 [place] [address] [place] [id number] [address] [place] [address] Aug, [place] [address] [place] [id number] [address] [place] [address] Aug, [place] [address] [place] [id number] [place] [address] Jul, Renal stones N20.0 [facility] [address] [place] [id number] [address] [place] [address] Jun, Back pain M54.9 ; Kidney sto radha N20.0 and BMI 50.0-59.9, adult Z68.43 [place] [address] [address] Jun, [place] [address] [address] Apr, [place] [address] [address] Apr, [place] [address] [address] Apr, Right foot pain M79.671 ; Ac campo gout involving toe of right foot, 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 and Arthritis M19.90 [place] [address] [address] Apr, Gastroesophageal reflux dise ase without esophagitis K21.9 [place] [address] [place] [id number] [address] [place] [address] Mar, Hypothyroidism, unspecified E03.9 [place] [address] [place] [id number] [address] [place] [address] Feb, [place] [address] [place] [id number] [place] [address] 25 Jan, 2017 Cervicalgia of occipito-atla nto-axial region M54.2 and Persistent headaches R51 [facility] [address] [place] [id number] [address] [place] [address] 20 Jan, 2017 [place] [address] [address] 12 Jan, 2017 Intractable migraine without aura and with status migrainosus G43.011 ; Cervical spine pain M54.2 ; Hyperlipidemia, unspecified hyperlipidemia type E78.5 ; Hypothyroidism E03.9 and Metabolic syndrome E88.81 [facility] [address] [address] Jan, Hypothyroidism, unspecified E03.9 [place] [address] [address] Dec, Hypothyroidism, unspecified E03.9 [place] [address] [address] Dec, Hypothyroidism E03.9 [place] [address] [address] Nov, Laceration of left great toe w/o foreign body w/o damage to nail, initial encounter S91.112A [facility] [address] [address] Oct, Pain in left knee M25.562 an d Arthritis M19.90 [facility] [address] [address] Oct, Hypothyroidism, unspecified E03.9 and Hyperlipidemia, unspecified hyperlipidemia type E78.5 [facility] [id number] [place] [address] Oct, Gastroesophageal reflux dise ase without esophagitis K21.9 [place] [address] [place] [id number] [address] [place] [address] 14 Oct, 2016 Metabolic syndrome E88.81 ; Personal history of pulmonary embolism Z86.711 ; Other specified hypothyroidism E03.8 and Hyperlipidemia, unspecified hyperlipidemia type E78.5 [place] [address] [place] [id number] [address] [place] [address] 13 Oct, 2017 Personal history of pulmonar y embolism Z86.711 ; Dysuria R30.0 ; Metabolic syndrome E88.81 ; Other specified hypothyroidism E03.8 ; Hyperlipidemia, unspecified hyperlipidemia type E78.5 and Morbid obesity with BMI of 50.0-59.9, adult Z68.43 [place] [address] [address] September, [facility] [place] [address] [address] September, Wrist pain, left M25.532 and Acute pain of left knee M25.562 [place] [address] [address] Jul, Dysuria R30.0 [place] [address] [address] Jul, Dysuria R30.0 [place] [address] [place] [id number] [place] [address] Jul, Left lower quadrant pain R10 .32 [place] [address] [place] [id number] [place] [address] Jul, [place] [address] [address] Jul, Coronary artery disease I25. 10 ; Family history of diabetes mellitus Z83.3 ; Morbid obesity with BMI of 50.0-59.9, adult Z68.43 ; Metabolic syndrome E88.81 ; Personal history of pulmonary embolism Z86.711 ; Gastroesophageal reflux disease without esophagitis K21.9 ; Hypothyroidism, unspecified E03.9 ; Hyperlipidemia, unspecified hyperlipidemia type E78.5 and Left lower quadrant pain R10.32 [facility] [address] [address] Jul, [facility] [address] [address] 08 Jul, 2016 Morbid obesity with BMI of 5 0.0-59.9, adult Z68.43 [facility] [address] [address] 07 Jul, 2016 Generalized abdominal pain R 10.84 [facility] [address] [address] 02 Jun, 2016 Muscle strain of right upper back, initial encounter S29.012A [facility] [address] [address] May, Foreign body (FB) in soft ti ssue M79.[address] [address] Mar, Hypothyroidism, unspecified E03.9 and Arthritis M19.[address] [address] Feb, Coronary artery disease I25. 10 ; Morbid obesity with BMI of 50.0- 59.9, adult Z68.43 ; Metabolic syndrome E88.81 ; Gastroesophageal reflux disease without esophagitis K21.9 ; Hypothyroidism, unspecified E03.9 ; Personal history of pulmonary embolism Z86.711 and Hyperlipidemia, unspecified hyperlipidemia type E78.[address] [address] Feb, [facility] [address] [address] Jan, Acute right-sided thoracic b ack pain M54.[address] [address] Jan, Acute pain of left knee M25. [address] [address] Dec, Dysuria R30.0 ; Metabolic sy ndrome E88.81 ; Acute pain of left knee M25.562 ; Acute cystitis with hematuria N30.01 and Acute left eye pain H57.12 [place] [address] [facility] [id number] [address] [place] [address] Dec, [place] [address] [facility] [id number] [address] [place] [address] Dec, [place] [address] [facility] [id number] [address] [place] [address] Dec, Hypothyroidism, unspecified E03.9 [place] [address] [facility] [id number] [address] [place] [address] Dec, [place] [address] [place] [id number] [place] [address] Nov, Peripheral edema R60.9 and A cute pain of left knee M25.562 [facility] [place] [address] [address] [place] [id number] [place] [address] September, [place] [address] [place] [id number] [address] [place] [address] September, Metabolic syndrome E88.81 an d Allergy, subsequent encounter T78.40XD [facility] [place] [id number] [place] [address] September, Muscle strain T14.[address] [id number] [address] [place] [address] Aug, Chest pressure R07.89 ; [place] bolic syndrome E88.81 ; Morbid obesity with BMI of 50.0-59.9, adult Z68.43 ; Esophageal reflux 530.81 and Shortness of breath R06.02 [place] [address] [facility] [id number] [address] [place] [address] Aug, [place] [address] [place] [id number] [address] [place] [address] Aug, [place] [address] [address] Aug, Hypothyroidism, unspecified E03.9 [facility] [address] [address] Aug, Routine health maintenance Z 00.00 [facility] [address] [address] Aug, [facility] [address] [address] Jul, Routine health maintenance Z 00.00 ; Family history of diabetes mellitus Z83.3 ; Family history of cancer Z80.9 and Morbid obesity with BMI of 50.0-59.9, adult Z68.43 [facility] [address] [address] Jul, Allergic rhinitis J30.9 and Postnasal drip R09.82 [place] [address] [address] Jul, Influenza J11.1 [facility] [address] [address] Jul, Dysuria R30.0 [place] [address] [address] Apr, [place] [address] [address] Mar, Acute upper respiratory infe ction, unspecified J06.9 and Hypothyroidism E03.9 [place] [address] [address] Mar, [place] [address] [address] Feb, Coronary artery disease I25. 10 [place] [address] [address] 16 Feb, 2015 Left foot pain M79.672 [place] [address] [facility] [id number] [address] [place] [address] Jan, UTI (urinary tract infection ) 599.0 [facility] [address] [id number] [address] [place] [address] Jan, Urinary tract infection, sit e not specified 599.0 [facility] [address] [id number] [address] [place] [address] Jan, Urinary tract infection, sit e not specified 599.0 [facility] [address] [id number] [address] [place] [address] Jan, [place] [address] [id number] [address] [place] [address] Dec, Headache 784.0 [facility] [address] [id number] [address] [place] [address] Dec, Urinary tract infection, sit e not specified 599.0 [place] [address] [id number] [address] [place] [address] Dec, Urinary tract infection, sit e not specified 599.0 [place] [address] [id number] [address] [place] [address] Dec, Urinary tract infection, sit e not specified 599.0 [place] [address] [id number] [address] [place] [address] Nov, Unspecified sleep apnea 780. 57 ; Encounter for long-term (current) use of anticoagulants V58.61 ; Routine general medical examination at health care facility V70.0 and Arthritis of both knees 716.96 [place] [address] [id number] [address] [place] [address] September, Cat bite of hand 882.0 and R ectal bleeding 569.3 [facility] [address] [id number] [address] [place] [address] Aug, [facility] [address] [id number] [address] [place] [address] Aug, [facility] [address] [id number] [address] [place] [address], [place] [address] Jul, [facility] [address] [id number] [address] [place] [address], [place] [address] Jul, [facility] [address] [id number] [address] [place] [address], [place] [address] Jul, [facility] [address] [id number] [address] [place] [address], [place] [address] Jul, [facility] [address] [id number] [address] [place] [address], [place] [address] Jul, [facility] [address] [id number] [address] [place] [address], [place] [address] Jul, [facility] [address] [id number] [address] [place] [address], [place] [address] Jul, [facility] [address] [id number] [address] [place] [address], [place] [address] Jul, [facility] [address] [id number] [address] [place] [address], [place] [address] May, [facility] [address] [id number] [address] [place] [address], [place] [address] May, [facility] [address] [id number] [address] [place] [address], [place] [address] May, [facility] [address] [id number] [address] [place] [address], [place] [address] May, [facility] [address] [id number] [address] [place] [address], [place] [address] May, [facility] [address] [id number] [address] [place] [address], [place] [address] May, [facility] [address] [id number] [address] [place] [address], [place] [address] May, [facility] [address] [id number] [facility] [place] [address] Mar, [facility] [address] [id number] [facility] [place] [address] Mar, [facility] [address] [id number] [facility] [place] [address] 08 Jan, 2013 [facility] [address] [id number] [facility] [place] [address] 08 Jan, 2013 [facility] [address] [id number] [facility] [place] [address] 08 Jan, 2013 [facility] [address] [id number] [address] [place] [address], [place] [address] 08 Jan, 2013 [facility] [address] [id number] [address] [place] [address], [place] [address] 05 Jan, 2013 [facility] [address] [id number] [address] [place] [address], [place] [address] Jan, 2013 [facility] [address] [id number] [address] [place] [address], [place] [address] Dec, [facility] [address] [id number] [address] [place] [address], [place] [address] Dec, [facility] [address] [id number] [address] [place] [address], [place] [address] Dec, [facility] [address] [id number] [address] [place] [address], [place] [address] Dec, [facility] [address] [id number] [address] [place] [address], [place] [address] Dec, [facility] [address] [id number] [address] [place] [address], [place] [address] Dec, [facility] [address] [id number] [address] [place] [address], [place] [address] Dec, [facility] [address] [id number] [address] [place] [address], [place] [address] Dec, [facility] [address] [id number] [facility] [place] [address] Dec, [facility] [address] [id number] [address] [place] [address], [place] [address] Dec, [facility] [address] [id number] [facility] [place] [address] Nov, [facility] [address] [id number] [address] [place] [address], [place] [address] Nov, [facility] [address] [id number] [address] [place] [address], [place] [address] September, [facility] [address] [id number] [address] [place] [address], [place] [address] September, [facility] [address] [id number] [address] [place] [address], [place] [address] September, [facility] [address] [id number] [address] [place] [address], [place] [address] September, [facility] [address] [id number] [address] [place] [address], [place] [address] Aug, [facility] [address] [id number] [address] [place] [address], [place] [address] Aug, [facility] [address] [id number] [address] [place] [address], [place] [address] Aug, [facility] [address] [id number] [address] [place] [address], [place] [address] Aug, [facility] [address] [id number] [address] [place] [address], [place] [address] Aug, [facility] [address] [id number] [address] [place] [address], [place] [address] Aug, [facility] [address] [id number] [address] [place] [address], [place] [address] Aug, [facility] [address] [id number] [facility] [place] [address] 08 Aug, 2013 [facility] [address] [id number] [address] [place] [address], [place] [address] 07 Aug, 2013 [facility] [address] [id number] [address] [place] [address], [place] [address] Aug, [facility] [address] [id number] [address] [place] [address], [place] [address] 07 Aug, 2013 [facility] [address] [id number] [address] [place] [address], [place] [address] Aug, [facility] [address] [id number] [address] [place] [address], [place] [address] Jul, [facility] [address] [id number] [address] [place] [address], [place] [address] Jul, [facility] [address] [id number] [address] [place] [address], [place] [address] Jul, [facility] [address] [id number] [address] [place] [address], [place] [address] Jul, [facility] [address] [id number] [address] [place] [address] [address] Jul, [facility] [address] [id number] [address] [place] [address], [place] [address] Jul, [facility] [address] [id number] [address] [place] [address], [place] [address] 05 Jul, 2013 [facility] [address] [id number] [address] [place] [address], [place] [address] 05 Jul, 2013 [facility] [address] [id number] [address] [place] [address], [place] [address] Jul, [facility] [address] [id number] [address] [place] [address], [place] [address] Jul, [facility] [address] [id number] [address] [place] [address], [place] [address] Jun, [facility] [address] [id number] [facility] [place] [address] Jun, [facility] [address] [id number] [address] [place] [address], [place] [address] Jun, [facility] [address] [id number] [address] [place] [address], [place] [address] Jun, [facility] [address] [id number] [address] [place] [address], [place] [address] Jun, [facility] [address] [id number] [address] [place] [address], [place] [address] Jun, [facility] [address] [id number] [address] [place] [address], [place] [address] Jun, [facility] [address] [id number] [address] [place] [address], [place] [address] Jun, [facility] [address] [id number] [address] [place] [address], [place] [address] Jun, [facility] [address] [id number] [address] [place] [address], [place] [address] Jun, [facility] [address] [id number] [address] [place] [address], [place] [address] Jun, [facility] [address] [id number] [address] [place] [address], [place] [address] Jun, [facility] [address] [id number] [address] [place] [address], [place] [address] May, [facility] [address] [id number] [address] [place] [address], [place] [address] May, [facility] [address] [id number] [address] [place] [address], [place] [address] May, [facility] [address] [id number] [address] [place] [address], [place] [address] May, [facility] [address] [id number] [address] [place] [address], [place] [address] May, [facility] [address] [id number] [address] [place] [address], [place] [address] May, [facility] [address] [id number] [address] [place] [address], [place] [address] May, [facility] [address] [id number] [address] [place] [address], [place] [address] May, [facility] [address] [id number] [address] [place] [address], [place] [address] May, [facility] [address] [id number] [address] [place] [address], [place] [address] May, [facility] [address] [id number] [address] [place] [address], [place] [address] May, [facility] [address] [id number] [address] [place] [address], [place] [address] May, [facility] [address] [id number] [address] [place] [address], [place] [address] May, [facility] [address] [id number] [address] [place] [address], [place] [address] May, [facility] [address] [id number] [address] [place] [address], [place] [address] May, [facility] [address] [id number] [address] [place] [address], [place] [address] Apr, [facility] [address] [id number] [address] [place] [address], [place] [address] Apr, [facility] [address] [id number] [address] [place] [address], [place] [address] Apr, [facility] [address] [id number] [address] [place] [address], [place] [address] Apr, [facility] [address] [id number] [address] [place] [address], [place] [address] Mar, [facility] [address] [id number] [address] [place] [address], [place] [address] Mar, [facility] [address] [id number] [address] [place] [address], [place] [address] Mar, [facility] [address] [id number] [address] [place] [address], [place] [address] Mar, [facility] [address] [id number] [address] [place] [address], [place] [address] Mar, [facility] [address] [id number] [address] [place] [address], [place] [address] Mar, [facility] [address] [id number] [address] [place] [address], [place] [address] Mar, [facility] [address] [id number] [address] [place] [address], [place] [address] Mar, [facility] [address] [id number] [address] [place] [address] Mar, [facility] [address] [id number] [address] [place] [address], [place] [address] Mar, [facility] [address] [id number] [address] [place] [address] Mar, [facility] [address] [id number] [address] [place] [address] Mar, [facility] [address] [id number] [address] [place] [address] Feb, [facility] [address] [id number] [address] [place] [address], [place] [address] 18 Sep2012 [facility] [address] [id number] [address] [place] [address] 17 Sep2012 [facility] [address] [id number] [address] [place] [address] 06 Sep2012 [facility] [address] [id number] [address] [place] [address] 04 Jan, 2013 [facility] [address] [id number] [address] [place] [address], [place] [address] Jan, [facility] [address] [id number] [address] [place] [address], [place] [address] Dec, [facility] [address] [id number] [address] [place] [address], [place] [address] Dec, [facility] [address] [id number] [address] [place] [address], [place] [address] Dec, [facility] [address] [id number] [address] [place] [address], [place] [address] Dec, [facility] [address] [id number] [address] [place] [address], [place] [address] Dec, [facility] [address] [id number] [address] [place] [address], [place] [address] Dec, [facility] [address] [id number] [address] [place] [address], [place] [address] Dec, [facility] [address] [id number] [address] [place] [address], [place] [address] Dec, [facility] [address] [id number] [address] [place] [address], [place] [address] Nov, [facility] [address] [id number] [address] [place] [address], [place] [address] Nov, [facility] [address] [id number] [address] [place] [address], [place] [address] Nov, [facility] [address] [id number] [address] [place] [address], [place] [address] Nov, [facility] [address] [id number] [address] [place] [address], [place] [address] Nov, [facility] [address] [id number] [address] [place] [address], [place] [address] Nov, [facility] [address] [id number] [address] [place] [address], [place] [address] Oct, [facility] [place] [address] [id number] [place] [id number] Oct, [facility] [place] [address] [id number] [place] [id number] Oct, [facility] [place] [address] [id number] [place] [id number] Oct, [facility] [place] [address] [id number] [place] [id number] Oct, [facility] [address] [id number] [address] [place] [address], [place] [address] Oct, [facility] [address] [id number] [address] [place] [address], [place] [address] Oct, [facility] [address] [id number] [address] [place] [address], [place] [address] Oct, [facility] [address] [id number] [address] [place] [address], [place] [address] Oct, [facility] [address] [id number] [address] [place] [address], [place] [address] Oct, [facility] [address] [id number] [address] [place] [address], [place] [address] Oct, [facility] [address] [id number] [address] [place] [address] September, [facility] [address] [id number] [address] [place] [address], [place] [address] Aug, [facility] [address] [id number] [address] [place] [address], [place] [address] Aug, [facility] [address] [id number] [address] [place] [address], [place] [address] Aug, [facility] [address] [id number] [address] [place] [address], [place] [address] Aug, [facility] [address] [id number] [address] [place] [address], [place] [address] 24 Jul, 2012 [facility] [address] [id number] [address] [place] [address], [place] [address] 20 Jul, 2012 [facility] [address] [id number] [address] [place] [address], [place] [address] 20 Jul, 2012 [facility] [address] [id number] [address] [place] [address], [place] [address] 05 Jul, 2012 [facility] [address] [id number] [address] [place] [address], [place] [address] 04 Jul, 2012 [facility] [address] [id number] [address] [place] [address], [place] [address] 19 Jun, 2012 [facility] [address] [id number] [address] [place] [address], [place] [address] 13 Jun, 2012 [facility] [address] [id number] [address] [place] [address], [place] [address] Jun, [facility] [address] [id number] [address] [place] [address], [place] [address] May, [facility] [address] [id number] [address] [place] [address], [place] [address] 24 May, 2012 [facility] [address] [id number] [address] [place] [address], [place] [address] 14 May, 2012 [facility] [place] [address] [id number] [address] [place] [address], [place] [address] May, [facility] [address] [id number] [address] [place] [address], [place] [address] May, [facility] [address] [id number] [address] [place] [address], [place] [address] May, [facility] [address] [id number] [address] [place] [address], [place] [address] Apr, [facility] [address] [id number] [address] [place] [address], [place] [address] Apr, [facility] [address] [id number] [address] [place] [address], [place] [address] Apr, [facility] [address] [id number] [address] [place] [address], [place] [address] Apr, [facility] [address] [id number] [address] [place] [address], [place] [address] Apr, [facility] [address] [id number] [address] [place] [address], [place] [address] Apr, [facility] [address] [id number] [address] [place] [address], [place] [address] Apr, [facility] [address] [id number] [address] [place] [address], [place] [address] Mar, [facility] [address] [id number] [address] [place] [address], [place] [address] Mar, [facility] [address] [id number] [address] [place] [address], [place] [address] Mar, [facility] [address] [id number] [address] [place] [address], [place] [address] Mar, [facility] [address] [id number] [address] [place] [address] 18 Jan, 2012 [facility] [address] [id number] [address] [place] [address], [place] [address] Jan, [facility] [address] [id number] [address] [place] [address] Jan, [facility] [address] [id number] [address] [place] [address], [place] [address] Jan, [facility] [address] [id number] [place] [id number] Dec, [facility] [address] [id number] [address] [place] [address], [place] [address] Dec, [facility] [address] [id number] [id number] Dec, [facility] [address] [facility] [id number] [address] [place] [address] Dec, [facility] [address] [facility] [id number] [address] [place] [address] Dec, [facility] [address] [facility] [id number] [address] [place] [address] Dec, [facility] [address] [facility] [id number] [address] [place] [address] Nov, [facility] [address] [facility] [id number] [address] [place] [address] Nov, [facility] [address] [facility] [id number] [address] [place] [address] Nov, IMMUNIZATIONS No Known Immunizations SOCIAL HISTORY [...] asthma(493.90) Medical History Near syncope 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
--- OUTSIDE RECORDS SUMMARY | 2019-11-03 19:33 | XMS REPORT ---
Author Author Anca Lucero Doctor Organization [facility] Address Unknown Phone Unavailable Care Team Providers Care Production Planner Name Role Phone Migration, Doctor Unavailable Unavailable PROBLEMS Type Condition ICD9-CM Code [id number] Code Onset Dates Condition S tatus SNOMED Code Problem Shortness of breath R06.02 Apr, 0 281731097 Problem Unspecified hypothyroidism E03.9 0 99463292 Problem Generalized anxiety disorder F41.1 Apr, 200 8 0 21664758 Problem Esophageal reflux K21.9 0 24 2848703 Problem Dyslipidemia E78.5 12 Oct, 2017 0 3709 19695 Problem Osteoarthritis of right knee M17.11 13 May, 0 0 372905503 Problem Unspecified sleep apnea G47.30 0 29799114 Problem Morbid obesity with BMI of 50.0-59.9, adult Z68.43 Active 009215017 Problem Migraine with aura and without status migrainosu s, not intractable G43.109 Active 8679838 Problem Pulmonary embolus I26.99 13 Oct, 2011 0 44859764 Problem Morbid obesity E66.01 Active 08263 6002 Problem Nonintractable migraine G43.009 08 Oct, 2015 0 597717965 Problem Hypothyroidism E03.9 Active 27257 008 Problem Renal stones N20.0 Active 1581333 7 Problem Coronary artery disease I25.10 Active 14807938 Problem Hyperlipidemia LDL goal <70 E78.5 Ac tive [id number] ALLERGIES No Information ENCOUNTERS Encounter Location Date Diagnosis [facility] [address] [facility] [id number] [address] [place] [id number] Dec, [facility] [address] [facility] [id number] [address] [place] [phone] Nov, Hematuria, unspecified type R31.[address] [address] Nov, Other microscopic hematuria R31.29 [facility] [address] [facility] [id number] [address] [place] [address] Nov, Vaginal gena B37.3 ; Othe r microscopic hematuria R31.29 and Morbid obesity E66.01 [facility] [address] [facility] [id number] [address] [place] [address] Nov, [facility] [address] [facility] [id number] [address] [place] [address] Nov, [facility] [address] [facility] [id number] [address] [place] [address] Nov, UTI symptoms R39.9 and Morbi d obesity E66.01 [facility] [address] [facility] [id number] [place] [address] Nov, [facility] [address] [facility] [id number] [address] [place] [phone] September, [facility] [address] [place] [id number] [place] [address] September, [facility] [address] [facility] [id number] [address] [place] [address] Aug, Right foot pain M79.671 and Morbid obesity E66.01 [facility] [address] [place] [id number] [address] [place] [address] Jul, Right foot pain M79.671 and Morbid obesity E66.01 [facility] [address] [facility] [id number] [address] [place] [address] Jul, Injury of right foot, initia l encounter S99.921A and Morbid obesity E66.01 [facility] [address] [facility] [id number] [address] [place] [address] Jul, Recurrent syncope R55 and Mo rbid obesity E66.01 [facility] [address] [facility] [id number] [address] [place] [address] Jul, [facility] [address] [place] [id number] [address] [place] [address] Jun, Hematuria, unspecified type R31.9 and BMI 50.0-59.9, adult Z68.43 [facility] [address] [place] [id number] [address] [place] [phone] 07 Jun, [address] [address] 04 Jun, 2018 [employer]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 [facility] [address] [place] [id number] [address] [place] [address] May, Ankle pain, right M25.571 an d BMI 50.0-59.9, adult Z68.43 [place] [address] [place] [id number] [place] [address] May, [place] [address] [place] [id number] [place] [address] May, [facility] [address] [address] Apr, [facility] [address] [place] [id number] [place] [address] Apr, [place] [address] [address] Apr, [facility] [address] [place] [id number] [address] [place] [address] Apr, BMI 50.0-59.9, adult Z68.43 and Weakness R53.1 [facility] [address] [place] [id number] [address] [place] [phone] Apr, [facility] [address] [place] [id number] [place] [address] Apr, Dysuria R30.0 ; Hematuria R3 1.9 ; Renal lithiasis N20.0 and BMI 50.0-59.9, adult Z68.43 [facility] [address] [place] [id number] [address] [place] [address] Apr, [place] [address] [place] [id number] [address] [place] [address] Apr, [place] [address] [address] Apr, Hypothyroidism E03.9 [place] [address] [address] Apr, Burning with urination R30.0 ; Type 2 diabetes mellitus with diabetic neuropathic arthropathy, 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 ; Acute bilateral low back pain without sciatica M54.5 and BMI 50.0- 59.9, adult Z68.43 [place] [address] [address] Mar, Hypothyroidism E03.9 [place] [address] [address] Feb, [facility] [place] [address] [address] 15 Jan, 2018 [place] [address] [address] 07 Jan, 2018 Acute non-recurrent maxillar y sinusitis J01.00 and BMI 50.0-59.9, adult Z68.43 [facility] [place] [address] [address] 04 Jan, 2018 Congestion of upper respirat ory tract J98.8 and BMI 50.0-59.9, adult Z68.43 [place] [address] [place] [id number] [address] [place] [address] Dec, Type 2 diabetes mellitus wit h diabetic neuropathic arthropathy, without long-term current use of insulin E11.610 ; Morbid obesity with BMI of 50.0-59.9, adult Z68.43 ; Hypothyroidism E03.9 ; Coronary artery disease I25.10 ; Hyperlipidemia LDL goal <70 E78.5 ; Right lower quadrant abdominal pain R10.31 and Acute cystitis with hematuria N30.01 [facility] [address] [address] Dec, Migraine with aura and witho ut status migrainosus, not intractable G43.109 ; Dehydration symptoms R63.8 and BMI 50.0-59.9, adult Z68.43 [facility] [address] [address] Oct, [place] [address] [address] Oct, [place] [address] [address] Oct, [place] [address] [address] September, [place] [address] [address] September, Type 2 diabetes mellitus wit h diabetic neuropathic arthropathy, without long-term current use of insulin E11.610 ; Hyperlipidemia, unspecified hyperlipidemia type E78.5 ; Personal history of pulmonary embolism Z86.711 ; Coronary artery disease I25.10 and Hypothyroidism E03.9 [facility] [address] [address] September, [facility] [address] [address] Aug, Type 2 diabetes mellitus wit h [...] without aura and with status migrainosus G43.011 [place] [address] [address] Aug, [facility] [address] [place] [id number] [address] [place] [address] Aug, [facility] [address] [address] Jul, Renal stones N20.0 [facility] [address] [place] [id number] [place] [address] Jun, Back pain M54.9 ; Kidney sto radha N20.0 and BMI 50.0-59.9, adult Z68.43 [facility] [address] [address] Jun, [place] [address] [address] Apr, [place] [address] [address] Apr, [facility] [address] [address] Apr, Right foot pain M79.671 ; Ac [place] gout involving toe of right foot, 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 and Arthritis M19.90 [place] [address] [address] 06 Apr, 2017 Gastroesophageal reflux dise ase without esophagitis K21.9 [place] [address] [address] 16 Mar, 2017 Hypothyroidism, unspecified E03.9 [place] [address] [address] Feb, [place] [address] [address] 25 Jan, 2017 Cervicalgia of occipito-atla nto-axial region M54.2 and Persistent headaches R51 [place] [address] [address] 20 Jan, 2017 [place] [id number] [address] 12 Jan, 2017 Intractable migraine without aura and with status migrainosus G43.011 ; Cervical spine pain M54.2 ; Hyperlipidemia, unspecified hyperlipidemia type E78.5 ; Hypothyroidism E03.9 and Metabolic syndrome E88.81 [facility] [address] [address] Jan, Hypothyroidism, unspecified E03.9 [place] [address] [address] Dec, Hypothyroidism, unspecified E03.9 [place] [address] [address] Dec, Hypothyroidism E03.9 [place] [address] [address] Nov, Laceration of left great toe w/o foreign body w/o damage to nail, initial encounter S91.112A [facility] [address] [address] Oct, Pain in left knee M25.562 an d Arthritis M19.90 [place] [address] [place] [id number] [place] [address] Oct, Hypothyroidism, unspecified E03.9 and Hyperlipidemia, unspecified hyperlipidemia type E78.5 [place] [address] [place] [id number] [place] [address] Oct, Gastroesophageal reflux dise ase without esophagitis K21.9 [place] [address] [address] 14 Oct, 2016 Metabolic syndrome E88.81 ; Personal history of pulmonary embolism Z86.711 ; Other specified hypothyroidism E03.8 and Hyperlipidemia, unspecified hyperlipidemia type E78.5 [facility] [address] [place] [id number] [place] [address] 13 Rito, 2017 Personal history of pulmonar y embolism Z86.711 ; Dysuria R30.0 ; Metabolic syndrome E88.81 ; Other specified hypothyroidism E03.8 ; Hyperlipidemia, unspecified hyperlipidemia type E78.5 and Morbid obesity with BMI of 50.0-59.9, adult Z68.43 [place] [id number] [place] [id number] [place] [address] September, [facility] [place] [address] [place] [id number] [place] [address] September, Wrist pain, left M25.532 and Acute pain of left knee M25.562 [place] [address] [address] Jul, Dysuria R30.0 [place] [address] [place] [id number] [place] [address] Jul, Dysuria R30.0 [place] [address] [address] Jul, Left lower quadrant pain R10 .32 [place] [address] [place] [id number] [place] [address] Jul, [place] [address] [address] Jul, Coronary artery disease I25. 10 ; Family history of diabetes mellitus Z83.3 ; Morbid obesity with BMI of 50.0-59.9, adult Z68.43 ; Metabolic syndrome E88.81 ; Personal history of pulmonary embolism Z86.711 ; Gastroesophageal reflux disease without esophagitis K21.9 ; Hypothyroidism, unspecified E03.9 ; Hyperlipidemia, unspecified hyperlipidemia type E78.5 and Left lower quadrant pain R10.32 [facility] [place] [address] [place] [id number] [place] [address] Jul, [facility] [place] [address] [address] Jul, Morbid obesity with BMI of 5 0.0-59.9, adult Z68.43 [facility] [place] [address] [address] 07 Jul, 2016 Generalized abdominal pain R 10.84 [facility] [place] [address] [address] 02 Jun, 2016 Muscle strain of right upper back, initial encounter S29.012A [facility] [place] [address] [address] 16 May, 2016 Foreign body (FB) in soft ti ssue M79.5 [place] [address] [address] Mar, Hypothyroidism, unspecified E03.9 and Arthritis M19.90 [place] [address] [address] 13 Feb, 2016 Coronary artery disease I25. 10 ; Morbid obesity with BMI of 50.0- 59.9, adult Z68.43 ; Metabolic syndrome E88.81 ; Gastroesophageal reflux disease without esophagitis K21.9 ; Hypothyroidism, unspecified E03.9 ; Personal history of pulmonary embolism Z86.711 and Hyperlipidemia, unspecified hyperlipidemia type E78.5 [place] [address] [address] 10 Feb, 2016 [facility] [place] [address] [address] Jan, Acute right-sided thoracic b ack pain M54.6 [place] [address] [address] Jan, Acute pain of left knee M25. 562 [place] [address] [address] 18 Dec, 2015 Dysuria R30.0 ; Metabolic sy ndrome E88.81 ; Acute pain of left knee M25.562 ; Acute cystitis with hematuria N30.01 and Acute left eye pain H57.12 [place] [address] [place] [id number] [place] [address] Dec, [facility] [address] [id number] [address] [place] [address] Dec, [facility] [address] [facility] [id number] [address] [place] [address] Dec, Hypothyroidism, unspecified E03.9 [facility] [address] [facility] [id number] [address] [place] [address] Dec, [facility] [address] [facility] [id number] [address] [place] [address] Nov, Peripheral edema R60.9 and A cute pain of left knee M25.562 [facility] [address] [facility] [id number] [place] [address] September, [place] [address] [address] September, Metabolic syndrome E88.81 an d Allergy, subsequent encounter T78.40XD [facility] [address] [facility] [id number] [address] [place] [address] September, Muscle strain T14.8 [place] [address] [facility] [id number] [address] [place] [address] Aug, Chest pressure R07.89 ; [place] bolic syndrome E88.81 ; Morbid obesity with BMI of 50.0-59.9, adult Z68.43 ; Esophageal reflux 530.81 and Shortness of breath R06.02 [facility] [address] [facility] [id number] [address] [place] [address] Aug, [place] [address] [facility] [id number] [address] [place] [address] Aug, [place] [address] [facility] [id number] [address] [place] [address] Aug, Hypothyroidism, unspecified E03.9 [place] [address] [facility] [id number] [address] [place] [address] Aug, Routine health maintenance Z 00.00 [facility] [address] [address] Aug, [facility] [address] [address] 31 Jul, 2015 Routine health maintenance Z 00.00 ; Family history of diabetes mellitus Z83.3 ; Family history of cancer Z80.9 and Morbid obesity with BMI of 50.0-59.9, adult Z68.43 [facility] [address] [address] 28 Jul, 2015 Allergic rhinitis J30.9 and Postnasal drip R09.82 [place] [address] [address] Jul, Influenza J11.1 [facility] [address] [address] Jul, Dysuria R30.0 [place] [address] [address] Apr, [place] [address] [address] Mar, Acute upper respiratory infe ction, unspecified J06.9 and Hypothyroidism E03.9 [place] [address] [address] Mar, [place] [address] [address] Feb, Coronary artery disease I25. 10 [place] [address] [address] Feb, Left foot pain M79.672 [place] [address] [place] [id number] [place] [address] Jan, UTI (urinary tract infection ) 599.0 [place] [address] [id number] [address] [place] [address] Jan, Urinary tract infection, sit e not specified 599.0 [facility] [address] [id number] [address] [place] [address] Jan, Urinary tract infection, sit e not specified 599.0 [facility] [address] [id number] [address] [place] [address] Jan, [facility] [address] [id number] [address] [place] [address] Dec, Headache 784.0 [place] [address] [id number] [address] [place] [address] Dec, Urinary tract infection, sit e not specified 599.0 [place] [address] [id number] [address] [place] [address] Dec, Urinary tract infection, sit e not specified 599.0 [place] [address] [id number] [address] [place] [address] Dec, Urinary tract infection, sit e not specified 599.0 [place] [address] [id number] [address] [place] [address] Nov, Unspecified sleep apnea 780. 57 ; Encounter for long-term (current) use of anticoagulants V58.61 ; Routine general medical examination at health care facility V70.0 and Arthritis of both knees 716.96 [place] [address] [id number] [address] [place] [address] September, Cat bite of hand 882.0 and R ectal bleeding 569.3 [place] [address] [id number] [address] [place] [address] Aug, [facility] [address] [facility] [id number] [address] [place] [address] Aug, [place] [address] [facility] [id number] [address] [place] [address] Jul, [facility] [address] [id number] [address] [place] [address], [place] [address] Jul, [facility] [address] [id number] [address] [place] [address], [place] [address] Jul, [facility] [address] [id number] [address] [place] [address], [place] [address] Jul, [facility] [address] [id number] [address] [place] [address], [place] [address] Jul, [facility] [address] [id number] [address] [place] [address], [place] [address] Jul, [facility] [address] [id number] [address] [place] [address], [place] [address] Jul, [facility] [address] [id number] [address] [place] [address], [place] [address] Jul, [facility] [address] [id number] [address] [place] [address], [place] [address] May, [facility] [address] [id number] [address] [place] [address], [place] [address] May, [facility] [address] [id number] [address] [place] [address], [place] [address] May, [facility] [address] [id number] [address] [place] [address], [place] [address] May, [facility] [address] [id number] [address] [place] [address], [place] [address] May, [facility] [address] [id number] [address] [place] [address], [place] [address] May, [facility] [address] [id number] [address] [place] [address], [place] [address] May, [facility] [address] [id number] [address] [place] [address], [place] [address] Mar, [facility] [address] [id number] [address] [place] [address], [place] [address] 03 Mar, 2014 [facility] [address] [id number] [address] [place] [address], [place] [address] 08 Sep, 2013 [facility] [address] [id number] [address] [place] [address], [place] [address] 08 Jan, 2013 [facility] [address] [id number] [address] [place] [address], [place] [address] 08 Jan, 2013 [facility] [address] [id number] [address] [place] [address], [place] [address] 08 Jan, 2013 [facility] [address] [id number] [address] [place] [address], [place] [address] 05 Jan, 2013 [facility] [address] [id number] [address] [place] [address], [place] [address] 05 Jan, 2013 [facility] [address] [id number] [address] [place] [address], [place] [address] Dec, [facility] [address] [id number] [address] [place] [address], [place] [address] Dec, [facility] [address] [id number] [address] [place] [address], [place] [address] Dec, [facility] [address] [id number] [address] [place] [address], [place] [address] Dec, [facility] [address] [id number] [address] [place] [address], [place] [address] Dec, [facility] [address] [id number] [address] [place] [address], [place] [address] Dec, [facility] [address] [id number] [address] [place] [address], [place] [address] Dec, [facility] [address] [id number] [address] [place] [address], [place] [address] Dec, [facility] [address] [id number] [address] [place] [address], [place] [address] Dec, [facility] [address] [id number] [address] [place] [address], [place] [address] Dec, [facility] [address] [id number] [address] [place] [address], [place] [address] Nov, [facility] [address] [id number] [address] [place] [address], [place] [address] Nov, [facility] [address] [id number] [address] [place] [address], [place] [address] September, [facility] [address] [id number] [address] [place] [address], [place] [address] September, [facility] [address] [id number] [address] [place] [address], [place] [address] September, [facility] [address] [id number] [address] [place] [address], [place] [address] September, [facility] [address] [id number] [address] [place] [address], [place] [address] Aug, [facility] [address] [id number] [address] [place] [address], [place] [address] Aug, [facility] [address] [id number] [address] [place] [address], [place] [address] Aug, [facility] [address] [id number] [address] [place] [address], [place] [address] Aug, [facility] [address] [id number] [address] [place] [address], [place] [address] Aug, [facility] [address] [id number] [address] [place] [address], [place] [address] Aug, [facility] [address] [id number] [address] [place] [address], [place] [address] Aug, [facility] [address] [id number] [address] [place] [address], [place] [address] Aug, [facility] [address] [id number] [address] [place] [address], [place] [address] 07 Aug, 2013 [facility] [address] [id number] [facility] [place] [address] Aug, [facility] [address] [id number] [address] [place] [address], [place] [address] Aug, [facility] [address] [id number] [address] [place] [address], [place] [address] Aug, [facility] [address] [id number] [address] [place] [address], [place] [address] Jul, [facility] [address] [id number] [address] [place] [address], [place] [address] Jul, [facility] [address] [id number] [address] [place] [address], [place] [address] Jul, [facility] [address] [id number] [address] [place] [address], [place] [address] Jul, [facility] [address] [id number] [address] [place] [address], [place] [address] Jul, [facility] [address] [id number] [address] [place] [address], [place] [address] Jul, [facility] [address] [id number] [address] [place] [address], [place] [address] Jul, [facility] [address] [id number] [address] [place] [address], [place] [address] Jul, [facility] [address] [id number] [address] [place] [address], [place] [address] Jul, [facility] [address] [id number] [address] [place] [address], [place] [address] Jul, [facility] [address] [id number] [address] [place] [address], [place] [address] Jun, [facility] [address] [id number] [address] [place] [address], [place] [address] Jun, [facility] [address] [id number] [address] [place] [address], [place] [address] Jun, [facility] [address] [id number] [address] [place] [address], [place] [address] Jun, [facility] [address] [id number] [address] [place] [address], [place] [address] Jun, [facility] [address] [id number] [address] [place] [address], [place] [address] Jun, [facility] [address] [id number] [address] [place] [address], [place] [address] Jun, [facility] [address] [id number] [address] [place] [address], [place] [address] Jun, [facility] [address] [id number] [address] [place] [address], [place] [address] Jun, [facility] [address] [id number] [address] [place] [address], [place] [address] Jun, [facility] [address] [id number] [address] [place] [address], [place] [address] Jun, [facility] [address] [id number] [address] [place] [address], [place] [address] Jun, [facility] [address] [id number] [address] [place] [address], [place] [address] May, [facility] [address] [id number] [address] [place] [address], [place] [address] May, [facility] [address] [id number] [address] [place] [address], [place] [address] May, [facility] [address] [id number] [address] [place] [address], [place] [address] May, [facility] [address] [id number] [address] [place] [address], [place] [address] May, [facility] [address] [id number] [address] [place] [address] May, [facility] [address] [id number] [address] [place] [address], [place] [address] May, [facility] [address] [id number] [address] [place] [address], [place] [address] May, [facility] [address] [id number] [address] [place] [address], [place] [address] May, [facility] [address] [id number] [address] [place] [address], [place] [address] May, [facility] [address] [id number] [address] [place] [address], [place] [address] May, [facility] [address] [id number] [address] [place] [address], [place] [address] May, [facility] [address] [id number] [address] [place] [address], [place] [address] May, [facility] [address] [id number] [address] [place] [address], [place] [address] May, [facility] [address] [id number] [address] [place] [address], [place] [address] May, [facility] [address] [id number] [address] [place] [address], [place] [address] Apr, [facility] [address] [id number] [address] [place] [address], [place] [address] Apr, [facility] [address] [id number] [address] [place] [address], [place] [address] Apr, [facility] [address] [id number] [address] [place] [address], [place] [address] Apr, [facility] [address] [id number] [address] [place] [address], [place] [address] Mar, [facility] [address] [id number] [address] [place] [address], [place] [address] Mar, [facility] [address] [id number] [address] [place] [address], [place] [address] Mar, [facility] [address] [id number] [address] [place] [address], [place] [address] Mar, [facility] [address] [id number] [address] [place] [address], [place] [address] Mar, [facility] [address] [id number] [address] [place] [address], [place] [address] Mar, [facility] [address] [id number] [address] [place] [address], [place] [address] Mar, [facility] [address] [id number] [address] [place] [address], [place] [address] Mar, [facility] [address] [id number] [address] [place] [address], [place] [address] Mar, [facility] [address] [id number] [address] [place] [address], [place] [address] Mar, [facility] [address] [id number] [address] [place] [address], [place] [address] Mar, [facility] [address] [id number] [address] [place] [address], [place] [address] Mar, [facility] [address] [id number] [address] [place] [address], [place] [address] Feb, [facility] [address] [id number] [address] [place] [address], [place] [address] 18 Sep, 2012 [facility] [address] [id number] [address] [place] [address], [place] [address] 17 Sep, 2012 [facility] [address] [id number] [address] [place] [address], [place] [address] 06 Sep, 2012 [facility] [address] [id number] [address] [place] [address], [place] [address] 04 Sep, 2012 [facility] [address] [id number] [address] [place] [address], [place] [address] Jan, [facility] [address] [id number] [address] [place] [address], [place] [address] Dec, [facility] [address] [id number] [address] [place] [address], [place] [address] Dec, [facility] [address] [id number] [address] [place] [address], [place] [address] Dec, [facility] [address] [id number] [address] [place] [address], [place] [address] Dec, [facility] [address] [id number] [address] [place] [address], [place] [address] Dec, [facility] [address] [id number] [address] [place] [address], [place] [address] Dec, [facility] [address] [id number] [address] [place] [address], [place] [address] Dec, [facility] [address] [id number] [address] [place] [address], [place] [address] Dec, [facility] [address] [id number] [address] [place] [address], [place] [address] Nov, [facility] [address] [id number] [address] [place] [address], [place] [address] Nov, [facility] [address] [id number] [address] [place] [address], [place] [address] Nov, [facility] [address] [id number] [address] [place] [address], [place] [address] Nov, [facility] [address] [id number] [address] [place] [address], [place] [address] Nov, [facility] [address] [id number] [address] [place] [address], [place] [address] Nov, [facility] [address] [id number] [address] [place] [address], [place] [address] Oct, [facility] [address] [id number] [id number] Oct, [facility] [place] [address] [id number] [place] [id number] Oct, [facility] [place] [address] [id number] [place] [id number] Oct, [facility] [place] [address] [id number] [place] [id number] Oct, [facility] [address] [id number] [address] [place] [address], [place] [address] Oct, [facility] [address] [id number] [address] [place] [address], [place] [address] Oct, [facility] [address] [id number] [address] [place] [address] Oct, [facility] [address] [id number] [address] [place] [address] Oct, [facility] [address] [id number] [address] [place] [address] Oct, [facility] [address] [id number] [address] [place] [address] Oct, [facility] [address] [id number] [address] [place] [address] September, [facility] [address] [id number] [address] [place] [address] Aug, [facility] [address] [id number] [address] [place] [address] Aug, [facility] [address] [id number] [address] [place] [address] Aug, [facility] [address] [id number] [address] [place] [address] Aug, [facility] [address] [id number] [address] [place] [address] Jul, [facility] [address] [id number] [address] [place] [address] Jul, [facility] [address] [id number] [address] [place] [address], [place] [address] Jul, [facility] [address] [id number] [address] [place] [address], [place] [address] 05 Jul, 2012 [facility] [address] [id number] [address] [place] [address], [place] [address] 04 Jul, 2012 [facility] [address] [id number] [address] [place] [address], [place] [address] 19 Jun, 2012 [facility] [address] [id number] [address] [place] [address], [place] [address] Jun, [facility] [address] [id number] [address] [place] [address], [place] [address] Jun, [facility] [address] [id number] [address] [place] [address], [place] [address] May, [facility] [address] [id number] [address] [place] [address], [place] [address] 24 May, 2012 [facility] [address] [id number] [address] [place] [address], [place] [address] 14 May, 2012 [facility] [address] [id number] [address] [place] [address], [place] [address] May, [facility] [address] [id number] [address] [place] [address], [place] [address] 07 May, 2012 [facility] [address] [id number] [address] [place] [address], [place] [address] May, [facility] [address] [id number] [address] [place] [address], [place] [address] 18 Apr, 2012 [facility] [address] [id number] [address] [place] [address], [place] [address] 18 Apr, 2012 [facility] [address] [id number] [address] [place] [address], [place] [address] Apr, [facility] [address] [id number] [address] [place] [address], [place] [address] 13 Apr, 2012 [facility] [address] [id number] [address] [place] [address], [place] [address] Apr, [facility] [address] [id number] [address] [place] [address], [place] [address] Apr, [facility] [address] [id number] [address] [place] [address], [place] [address] Apr, [facility] [address] [id number] [address] [place] [address], [place] [address] Mar, [facility] [address] [id number] [address] [place] [address], [place] [address] Mar, [facility] [address] [id number] [address] [place] [address], [place] [address] Mar, [facility] [address] [id number] [address] [place] [address], [place] [address] Mar, [facility] [address] [id number] [address] [place] [address], [place] [address] 18 Jan, 2012 [facility] [address] [id number] [address] [place] [address], [place] [address] Jan, [facility] [address] [id number] [address] [place] [address], [place] [address] Jan, [facility] [address] [id number] [address] [place] [address], [place] [address] Jan, [facility] [address] [id number] [place] [id number] Dec, [facility] [address] [id number] [address] [place] [address], [place] [address] Dec, [facility] [address] [id number] [place] [id number] Dec, [facility] [address] [id number] [address] [place] [address], [place] [address] Dec, [facility] [address] [facility] [id number] [address] [place] [address] Dec, [facility] [address] [facility] [id number] [address] [place] [id number] Dec, [facility] [address] [facility] [id number] [address] [place] [address] Nov, [facility] [address] [facility] [id number] [address] [place] [address] Nov, [facility] [address] [facility] [id number] [address] [place] [id number] Nov, IMMUNIZATIONS No Known Immunizations SOCIAL HISTORY [...] Medical History Near syncope 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
--- OUTSIDE RECORDS SUMMARY | 2019-11-03 19:34 | XMS REPORT ---
Author Author Anca Lucero Doctor Organization [facility] Address Unknown Phone Unavailable Care Team Providers Care Mold Inspector Name Role Phone Migration, Doctor Unavailable Unavailable PROBLEMS Type Condition ICD9-CM Code [id number] Code Onset Dates Condition S tatus SNOMED Code Problem Shortness of breath R06.02 Apr, 0 071839646 Problem Unspecified hypothyroidism E03.9 0 45299397 Problem Generalized anxiety disorder F41.1 Apr, 200 8 0 39612672 Problem Esophageal reflux K21.9 0 24 9265138 Problem Dyslipidemia E78.5 12 Oct, 2017 0 3709 00512 Problem Osteoarthritis of right knee M17.11 May, 0 0 083248057 Problem Unspecified sleep apnea G47.30 0 85006417 Problem Morbid obesity with BMI of 50.0-59.9, adult Z68.43 Active 918918935 Problem Migraine with aura and without status migrainosu s, not intractable G43.109 Active 0745619 Problem Pulmonary embolus I26.99 13 Oct, 2011 0 15090846 Problem Morbid obesity E66.01 Active 78303 6002 Problem Nonintractable migraine G43.009 08 Oct, 2015 0 323056855 Problem Hypothyroidism E03.9 Active 09546 008 Problem Renal stones N20.0 Active 1095374 7 Problem Coronary artery disease I25.10 Active 62773757 Problem Hyperlipidemia LDL goal <70 E78.5 Ac tive [id number] ALLERGIES No Information ENCOUNTERS Encounter Location Date Diagnosis [facility] [address] [facility] [id number] [address] [place] [address] Nov, Hematuria, unspecified type R31.[address] [address] Nov, Other microscopic hematuria R31.29 [facility] [address] [facility] [id number] [address] [place] [address] Nov, Vaginal gena B37.3 ; Othe r microscopic hematuria R31.29 and Morbid obesity E66.01 [facility] [address] [id number] [address] [place] [address] Nov, [facility] [address] [facility] [id number] [address] [place] [address] Nov, [facility] [address] [facility] [id number] [address] [place] [address] Nov, UTI symptoms R39.9 and Morbi d obesity E66.01 [facility] [address] [id number] [address] [place] [address] Nov, [facility] [address] [facility] [id number] [address] [place] [address] September, [facility] [address] [facility] [id number] [address] [place] [address] September, [facility] [address] [facility] [id number] [address] [place] [address] Aug, Right foot pain M79.671 and Morbid obesity E66.01 [facility] [address] [facility] [id number] [address] [place] [address] Jul, Right foot pain M79.671 and Morbid obesity E66.01 [facility] [address] [facility] [id number] [address] [place] [address] Jul, Injury of right foot, initia l encounter S99.921A and Morbid obesity E66.01 [facility] [address] [facility] [id number] [address] [place] [address] Jul, Recurrent syncope R55 and Mo rbid obesity E66.01 [facility] [address] [facility] [id number] [address] [place] [address] Jul, [facility] [address] [facility] [id number] [address] [place] [address] Jun, Hematuria, unspecified type R31.9 and BMI 50.0-59.9, adult Z68.43 [facility] [address] [facility] [id number] [address] [place] [address] 07 Jun, [address] [address] Jun, 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 [facility] [address] [facility] [id number] [address] [place] [address] May, Ankle pain, right M25.571 an d BMI 50.0-59.9, adult Z68.43 [facility] [address] [facility] [id number] [address] [place] [address] May, [facility] [address] [facility] [id number] [address] [place] [address] May, [facility] [address] [facility] [id number] [address] [place] [address] Apr, [facility] [address] [facility] [id number] [address] [place] [address] Apr, [facility] [address] [facility] [id number] [address] [place] [address] Apr, [facility] [address] [facility] [id number] [address] [place] [address] Apr, BMI 50.0-59.9, adult Z68.43 and Weakness R53.1 [facility] [address] [facility] [id number] [address] [place] [address] Apr, [facility] [address] [facility] [id number] [address] [place] [address] Apr, Dysuria R30.0 ; Hematuria R3 1.9 ; Renal lithiasis N20.0 and BMI 50.0-59.9, adult Z68.43 [facility] [address] [facility] [id number] [address] [place] [address] Apr, [facility] [address] [facility] [id number] [address] [place] [address] Apr, [place] [address] [address] Apr, Hypothyroidism E03.9 [place] [address] [address] Apr, Burning with urination R30.0 ; Type 2 diabetes mellitus with diabetic neuropathic arthropathy, 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43 [place] [address] [address] Dec, Type 2 diabetes mellitus wit h diabetic neuropathic arthropathy, without long-term current use of insulin E11.610 ; Morbid obesity with BMI of 50.0-59.9, adult Z68.43 ; Hypothyroidism E03.9 ; Coronary artery disease I25.10 ; Hyperlipidemia LDL goal <70 E78.5 ; Right lower quadrant abdominal pain R10.31 and Acute cystitis with hematuria N30.01 [facility] [address] [address] Dec, Migraine with aura and witho ut status migrainosus, not intractable G43.109 ; Dehydration symptoms R63.8 and BMI 50.0-59.9, adult Z68.43 [place] [address] [address] Oct, [place] [address] [address] Oct, [place] [address] [address] Oct, [place] [address] [address] September, [place] [address] [address] September, Type 2 diabetes mellitus wit h diabetic neuropathic arthropathy, without long-term current use of insulin E11.610 ; Hyperlipidemia, unspecified hyperlipidemia type E78.5 ; Personal history of pulmonary embolism Z86.711 ; Coronary artery disease I25.10 and Hypothyroidism E03.[address] [address] September, [place] [address] [address] Aug, Type 2 diabetes mellitus wit h [...] and with status migrainosus G43.011 [place] [address] [address] Aug, [address] [address] Aug, [facility] [address] [address] Jul, Renal stones N20.0 [facility] [address] [address] Jun, Back pain M54.9 ; Kidney sto radha N20.0 and BMI 50.0-59.9, adult Z68.43 [facility] [address] [address] Jun, [facility] [address] [address] Apr, [place] [address] [address] Apr, [facility] [address] [address] Apr, Right foot pain M79.671 ; Ac [place] gout involving toe of right foot, 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 and Arthritis M19.90 [facility] [address] [address] 06 Apr, 2017 Gastroesophageal reflux dise ase without esophagitis K21.9 [place] [address] [address] 16 Mar, 2017 Hypothyroidism, unspecified E03.9 [facility] [address] [address] Feb, [place] [address] [address] 25 Jan, 2017 Cervicalgia of occipito-atla nto-axial region M54.2 and Persistent headaches R51 [place] [address] [address] [place] [id number] [place] [address] 20 Jan, 2017 [facility] [address] [address] 12 Jan, 2017 Intractable migraine without aura and with status migrainosus G43.011 ; Cervical spine pain M54.2 ; Hyperlipidemia, unspecified hyperlipidemia type E78.5 ; Hypothyroidism E03.9 and Metabolic syndrome E88.81 [place] [address] [address] Jan, Hypothyroidism, unspecified E03.9 [place] [address] [address] Dec, Hypothyroidism, unspecified E03.9 [place] [address] [address] Dec, Hypothyroidism E03.9 [place] [address] [address] Nov, Laceration of left great toe w/o foreign body w/o damage to nail, initial encounter S91.112A [facility] [address] [address] Oct, Pain in left knee M25.562 an d Arthritis M19.90 [place] [address] [address] Oct, Hypothyroidism, unspecified E03.9 and Hyperlipidemia, unspecified hyperlipidemia type E78.5 [place] [address] [address] Oct, Gastroesophageal reflux dise ase without esophagitis K21.9 [place] [address] [address] 14 Oct, 2016 Metabolic syndrome E88.81 ; Personal history of pulmonary embolism Z86.711 ; Other specified hypothyroidism E03.8 and Hyperlipidemia, unspecified hyperlipidemia type E78.5 [place] [address] [address] 13 Oct, 2016 Personal history of pulmonar y embolism Z86.711 ; Dysuria R30.0 ; Metabolic syndrome E88.81 ; Other specified hypothyroidism E03.8 ; Hyperlipidemia, unspecified hyperlipidemia type E78.5 and Morbid obesity with BMI of 50.0-59.9, adult Z68.[address] [address] September, [facility] [address] [address] September, Wrist pain, left M25.532 and Acute pain of left knee M25.[address] [address] Jul, Dysuria R30.[address] [address] Jul, Dysuria R30.[address] [address] Jul, Left lower quadrant pain R10 .[address] [address] Jul, [address] [address] Jul, Coronary artery disease I25. 10 ; Family history of diabetes mellitus Z83.3 ; Morbid obesity with BMI of 50.0-59.9, adult Z68.43 ; Metabolic syndrome E88.81 ; Personal history of pulmonary embolism Z86.711 ; Gastroesophageal reflux disease without esophagitis K21.9 ; Hypothyroidism, unspecified E03.9 ; Hyperlipidemia, unspecified hyperlipidemia type E78.5 and Left lower quadrant pain R10.32 [facility] [address] [address] Jul, [facility] [address] [address] Jul, Morbid obesity with BMI of 5 0.0-59.9, adult Z68.43 [facility] [address] [address] Jul, Generalized abdominal pain R 10.84 [facility] [place] [address] [address] [place] [id number] [address] [place] [address] Jun, Muscle strain of right upper back, initial encounter S29.012A [facility] [place] [address] [address] [place] [id number] [address] [place] [address] May, Foreign body (FB) in soft ti ssue M79.5 [place] [address] [address] Mar, Hypothyroidism, unspecified E03.9 and Arthritis M19.90 [place] [address] [address] Feb, Coronary artery disease I25. 10 ; Morbid obesity with BMI of 50.0- 59.9, adult Z68.43 ; Metabolic syndrome E88.81 ; Gastroesophageal reflux disease without esophagitis K21.9 ; Hypothyroidism, unspecified E03.9 ; Personal history of pulmonary embolism Z86.711 and Hyperlipidemia, unspecified hyperlipidemia type E78.5 [place] [address] [address] [place] [id number] [address] [place] [address] Feb, [facility] [place] [address] [address] Jan, Acute right-sided thoracic b ack pain M54.6 [place] [address] [address] Jan, Acute pain of left knee M25. 562 [place] [address] [address] Dec, Dysuria R30.0 ; Metabolic sy ndrome E88.81 ; Acute pain of left knee M25.562 ; Acute cystitis with hematuria N30.01 and Acute left eye pain H57.12 [place] [address] [address] [place] [id number] [address] [place] [address] Dec, [place] [address] [address] [place] [id number] [address] [place] [address] Dec, [facility] [address] [facility] [id number] [address] [place] [address] Dec, Hypothyroidism, unspecified E03.9 [facility] [address] [facility] [id number] [address] [place] [address] Dec, [place] [address] [address] [facility] [id number] [address] [place] [address] Nov, Peripheral edema R60.9 and A cute pain of left knee M25.562 [facility] [place] [address] [address] [facility] [id number] [address] [place] [address] September, [place] [address] [address] [facility] [id number] [address] [place] [address] September, Metabolic syndrome E88.81 an d Allergy, subsequent encounter T78.40XD [facility] [place] [address] [address] [facility] [id number] [address] [place] [address] September, Muscle strain T14.8 [place] [address] [address] [facility] [id number] [address] [place] [address] Aug, Chest pressure R07.89 ; [place] bolic syndrome E88.81 ; Morbid obesity with BMI of 50.0-59.9, adult Z68.43 ; Esophageal reflux 530.81 and Shortness of breath R06.02 [place] [address] [address] [facility] [id number] [address] [place] [address] Aug, [place] [address] [address] [facility] [id number] [address] [place] [address] Aug, [place] [address] [address] [facility] [id number] [address] [place] [address] Aug, Hypothyroidism, unspecified E03.9 [place] [address] [address] [facility] [id number] [address] [place] [address] Aug, Routine health maintenance Z 00.00 [facility] [address] [place] [id number] [address] [place] [address] Aug, [place] [address] [address] Jul, 2016 Routine health maintenance Z 00.00 ; Family history of diabetes mellitus Z83.3 ; Family history of cancer Z80.9 and Morbid obesity with BMI of 50.0-59.9, adult Z68.43 [facility] [address] [address] Jul, Allergic rhinitis J30.9 and Postnasal drip R09.82 [place] [address] [address] Jul, Influenza J11.1 [facility] [place] [address] [address] Jul, Dysuria R30.0 [place] [address] [address] Apr, [place] [address] [address] Mar, Acute upper respiratory infe ction, unspecified J06.9 and Hypothyroidism E03.9 [place] [address] [address] [place] [id number] [address] [place] [address] Mar, [place] [address] [address] Feb, Coronary artery disease I25. 10 [place] [address] [address] [place] [id number] [address] [place] [address] Feb, Left foot pain M79.672 [place] [address] [address] [place] [id number] [address] [place] [address] Jan, UTI (urinary tract infection ) 599.0 [place] [address] [address] [place] [id number] [address] [place] [address] Jan, Urinary tract infection, sit e not specified 599.0 [facility] [address] [id number] [address] [place] [address] Jan, Urinary tract infection, sit e not specified 599.0 [facility] [address] [id number] [address] [place] [address] Jan, [facility] [address] [id number] [address] [place] [address] Dec, Headache 784.0 [facility] [address] [id number] [address] [place] [address] Dec, Urinary tract infection, sit e not specified 599.0 [place] [address] [id number] [address] [place] [address] Dec, Urinary tract infection, sit e not specified 599.0 [place] [address] [id number] [address] [place] [address] Dec, Urinary tract infection, sit e not specified 599.0 [facility] [address] [id number] [address] [place] [address] Nov, Unspecified sleep apnea 780. 57 ; Encounter for long-term (current) use of anticoagulants V58.61 ; Routine general medical examination at health care facility V70.0 and Arthritis of both knees 716.96 [place] [address] [address] [facility] [id number] [address] [place] [address] September, Cat bite of hand 882.0 and R ectal bleeding 569.3 [facility] [address] [id number] [address] [place] [address] Aug, [facility] [address] [id number] [address] [place] [address] Aug, [facility] [address] [facility] [id number] [address] [place] [address] Jul, [facility] [address] [facility] [id number] [address] [place] [address] Jul, [facility] [address] [id number] [address] [place] [address], [place] [address] Jul, [facility] [address] [id number] [address] [place] [address], [place] [address] Jul, [facility] [address] [id number] [address] [place] [address], [place] [address] Jul, [facility] [address] [id number] [address] [place] [address], [place] [address] Jul, [facility] [address] [id number] [address] [place] [address], [place] [address] Jul, [facility] [address] [id number] [address] [place] [address], [place] [address] Jul, [facility] [address] [id number] [address] [place] [address], [place] [address] May, [facility] [address] [id number] [address] [place] [address], [place] [address] May, [facility] [address] [id number] [address] [place] [address], [place] [address] May, [facility] [address] [id number] [address] [place] [address], [place] [address] May, [facility] [address] [id number] [address] [place] [address], [place] [address] May, [facility] [address] [id number] [address] [place] [address], [place] [address] May, [facility] [address] [id number] [address] [place] [address], [place] [address] May, [facility] [address] [id number] [address] [place] [address], [place] [address] Mar, [facility] [address] [id number] [address] [place] [address], [place] [address] Mar, [facility] [address] [id number] [address] [place] [address], [place] [address] 08 Jan, 2013 [facility] [address] [id number] [address] [place] [address], [place] [id number] 08 Jan, 2013 [facility] [address] [id number] [address] [place] [address], [place] [address] 08 Jan, 2013 [facility] [address] [id number] [address] [place] [address], [place] [address] 08 Jan, 2013 [facility] [address] [id number] [address] [place] [address], [place] [address] 05 Jan, 2013 [facility] [address] [id number] [address] [place] [address], [place] [address] 05 Jan, 2013 [facility] [address] [id number] [address] [place] [address], [place] [address] Dec, [facility] [address] [id number] [address] [place] [address], [place] [address] Dec, [facility] [address] [id number] [address] [place] [address], [place] [address] Dec, [facility] [address] [id number] [address] [place] [address], [place] [address] Dec, [facility] [address] [id number] [address] [place] [address], [place] [address] Dec, [facility] [address] [id number] [address] [place] [address], [place] [address] Dec, [facility] [address] [id number] [address] [place] [address], [place] [address] Dec, [facility] [address] [id number] [address] [place] [address], [place] [address] Dec, [facility] [address] [id number] [address] [place] [address], [place] [address] Dec, [facility] [address] [id number] [address] [place] [address], [place] [address] Dec, [facility] [address] [id number] [facility] [place] [address] Nov, [facility] [address] [id number] [address] [place] [address], [place] [address] Nov, [facility] [address] [id number] [address] [place] [address], [place] [address] September, [facility] [address] [id number] [address] [place] [address], [place] [address] September, [facility] [address] [id number] [address] [place] [address], [place] [address] September, [facility] [address] [id number] [address] [place] [address], [place] [address] September, [facility] [address] [id number] [address] [place] [address], [place] [address] Aug, [facility] [address] [id number] [address] [place] [address], [place] [address] Aug, [facility] [address] [id number] [address] [place] [address], [place] [address] Aug, [facility] [address] [id number] [address] [place] [address], [place] [address] Aug, [facility] [address] [id number] [address] [place] [address], [place] [address] Aug, [facility] [address] [id number] [address] [place] [address], [place] [address] Aug, [facility] [address] [id number] [address] [place] [address], [place] [address] Aug, [facility] [address] [id number] [address] [place] [address], [place] [address] Aug, [facility] [address] [id number] [address] [place] [address], [place] [address] Aug, [facility] [address] [id number] [address] [place] [address], [place] [address] 07 Aug, 2013 [facility] [address] [id number] [facility] [place] [address] Aug, [facility] [address] [id number] [address] [place] [address], [place] [address] Aug, [facility] [address] [id number] [facility] [place] [address] Jul, [facility] [address] [id number] [address] [place] [address], [place] [address] Jul, [facility] [address] [id number] [address] [place] [address], [place] [address] Jul, [facility] [address] [id number] [address] [place] [address], [place] [address] Jul, [facility] [address] [id number] [address] [place] [address], [place] [address] Jul, [facility] [address] [id number] [address] [place] [address], [place] [address] Jul, [facility] [address] [id number] [address] [place] [address], [place] [address] Jul, [facility] [address] [id number] [address] [place] [address], [place] [address] 05 Jul, 2013 [facility] [address] [id number] [address] [place] [address], [place] [address] Jul, [facility] [address] [id number] [address] [place] [address], [place] [address] Jul, [facility] [address] [id number] [address] [place] [address], [place] [address] Jun, [facility] [address] [id number] [address] [place] [address], [place] [address] Jun, [facility] [address] [id number] [address] [place] [address], [place] [address] 17 Jun, 2013 [facility] [address] [id number] [address] [place] [address], [place] [address] 17 Jun, 2013 [facility] [address] [id number] [address] [place] [address], [place] [address] Jun, [facility] [address] [id number] [address] [place] [address], [place] [address] Jun, [facility] [address] [id number] [address] [place] [address], [place] [address] Jun, [facility] [address] [id number] [address] [place] [address], [place] [address] Jun, [facility] [address] [id number] [address] [place] [address], [place] [address] Jun, [facility] [address] [id number] [address] [place] [address], [place] [address] Jun, [facility] [address] [id number] [address] [place] [address], [place] [address] Jun, [facility] [address] [id number] [address] [place] [address], [place] [address] Jun, [facility] [address] [id number] [address] [place] [address], [place] [address] May, [facility] [address] [id number] [address] [place] [address], [place] [address] May, [facility] [address] [id number] [address] [place] [address], [place] [address] May, [facility] [address] [id number] [address] [place] [address], [place] [address] May, [facility] [address] [id number] [address] [place] [address], [place] [address] May, [facility] [address] [id number] [address] [place] [address], [place] [address] May, [facility] [address] [id number] [address] [place] [address] May, [facility] [address] [id number] [address] [place] [address], [place] [address] May, [facility] [address] [id number] [address] [place] [address], [place] [address] May, [facility] [address] [id number] [address] [place] [address], [place] [address] May, [facility] [address] [id number] [address] [place] [address], [place] [address] May, [facility] [address] [id number] [address] [place] [address], [place] [address] May, [facility] [address] [id number] [address] [place] [address], [place] [address] May, [facility] [address] [id number] [address] [place] [address], [place] [address] May, [facility] [address] [id number] [address] [place] [address], [place] [address] May, [facility] [address] [id number] [address] [place] [address], [place] [address] Apr, [facility] [address] [id number] [address] [place] [address], [place] [address] Apr, [facility] [address] [id number] [address] [place] [address], [place] [address] Apr, [facility] [address] [id number] [address] [place] [address], [place] [address] Apr, [facility] [address] [id number] [address] [place] [address], [place] [address] Mar, [facility] [address] [id number] [address] [place] [address], [place] [address] Mar, [facility] [address] [id number] [address] [place] [address], [place] [address] Mar, [facility] [address] [id number] [address] [place] [address], [place] [address] Mar, [facility] [address] [id number] [address] [place] [address], [place] [address] Mar, [facility] [address] [id number] [address] [place] [address], [place] [address] Mar, [facility] [address] [id number] [address] [place] [address], [place] [address] Mar, [facility] [address] [id number] [address] [place] [address], [place] [address] Mar, [facility] [address] [id number] [address] [place] [address], [place] [address] Mar, [facility] [address] [id number] [address] [place] [address], [place] [address] Mar, [facility] [address] [id number] [address] [place] [address], [place] [address] Mar, [facility] [address] [id number] [address] [place] [address], [place] [address] Mar, [facility] [address] [id number] [address] [place] [address], [place] [address] Feb, [facility] [address] [id number] [address] [place] [address], [place] [address] 18 Jan, 2013 [facility] [address] [id number] [address] [place] [address], [place] [address] 17 Jan, 2013 [facility] [address] [id number] [address] [place] [address], [place] [address] 06 Jan, 2012 [facility] [address] [id number] [address] [place] [address], [place] [address] 04 Jan, 2013 [facility] [address] [id number] [address] [place] [address], [place] [address] 03 Jan, 2013 [facility] [address] [id number] [address] [place] [address], [place] [address] Dec, [facility] [address] [id number] [address] [place] [address], [place] [address] Dec, [facility] [address] [id number] [address] [place] [address], [place] [address] Dec, [facility] [address] [id number] [address] [place] [address], [place] [address] Dec, [facility] [address] [id number] [address] [place] [address], [place] [address] Dec, [facility] [address] [id number] [address] [place] [address], [place] [address] Dec, [facility] [address] [id number] [address] [place] [address], [place] [address] Dec, [facility] [address] [id number] [address] [place] [address], [place] [address] Dec, [facility] [address] [id number] [address] [place] [address], [place] [address] Nov, [facility] [address] [id number] [address] [place] [address], [place] [address] Nov, [facility] [address] [id number] [address] [place] [address], [place] [address] Nov, [facility] [address] [id number] [address] [place] [address], [place] [address] Nov, [facility] [address] [id number] [address] [place] [address], [place] [address] Nov, [facility] [address] [id number] [address] [place] [address], [place] [address] Nov, [facility] [address] [id number] [address] [place] [address], [place] [address] Oct, [facility] [place] [address] [id number] [place] [id number] Oct, [facility] [place] [address] [id number] [place] [id number] Oct, [facility] [place] [address] [id number] [place] [id number] Oct, [facility] [place] [address] [id number] [place] [id number] Oct, [facility] [address] [id number] [address] [place] [address], [place] [address] Oct, [facility] [address] [id number] [address] [place] [address], [place] [address] Oct, [facility] [address] [id number] [address] [place] [address], [place] [address] Oct, [facility] [address] [id number] [address] [place] [address], [place] [address] Oct, [facility] [address] [id number] [address] [place] [address], [place] [address] Oct, [facility] [address] [id number] [address] [place] [address] Oct, [facility] [address] [id number] [address] [place] [address], [place] [address] September, [facility] [address] [id number] [address] [place] [address] Aug, [facility] [address] [id number] [address] [place] [address] Aug, [facility] [address] [id number] [address] [place] [address] Aug, [facility] [address] [id number] [address] [place] [address], [place] [address] Aug, [facility] [address] [id number] [address] [place] [address], [place] [address] Jul, [facility] [address] [id number] [address] [place] [address] Jul, [facility] [address] [id number] [address] [place] [address] Jul, [facility] [address] [id number] [address] [place] [address], [place] [address] 05 Jul, 2012 [facility] [address] [id number] [address] [place] [address], [place] [address] 04 Jul, 2012 [facility] [address] [id number] [address] [place] [address], [place] [address] 19 Jun, 2012 [facility] [address] [id number] [address] [place] [address], [place] [address] 13 Jun, 2012 [facility] [address] [id number] [address] [place] [address], [place] [address] Jun, [facility] [address] [id number] [address] [place] [address], [place] [address] May, [facility] [address] [id number] [address] [place] [address], [place] [address] May, [facility] [address] [id number] [address] [place] [address], [place] [address] May, [facility] [address] [id number] [address] [place] [address], [place] [address] May, [facility] [address] [id number] [address] [place] [address], [place] [address] May, [facility] [address] [id number] [address] [place] [address], [place] [address] May, [facility] [address] [id number] [address] [place] [address], [place] [address] 18 Apr, 2012 [facility] [address] [id number] [address] [place] [address], [place] [address] 18 Apr, 2012 [facility] [address] [id number] [address] [place] [address], [place] [address] 13 Apr, 2012 [facility] [address] [id number] [address] [place] [address], [place] [address] 13 Apr, 2012 [facility] [address] [id number] [address] [place] [address], [place] [address] Apr, [facility] [address] [id number] [address] [place] [address], [place] [address] Apr, [facility] [address] [id number] [address] [place] [address], [place] [address] Apr, [facility] [address] [id number] [address] [place] [address], [place] [address] Mar, [facility] [address] [id number] [address] [place] [address], [place] [address] Mar, [facility] [address] [id number] [address] [place] [address], [place] [address] Mar, [facility] [address] [id number] [address] [place] [address], [place] [address] Mar, [facility] [address] [id number] [address] [place] [address], [place] [address] 18 Jan, 2012 [facility] [address] [id number] [address] [place] [address], [place] [address] 10 Jan, 2012 [facility] [address] [id number] [address] [place] [address], [place] [address] 06 Jan, 2012 [facility] [address] [id number] [address] [place] [address], [place] [address] Jan, [facility] [place] [address] [id number] [place] [id number] Dec, [facility] [address] [id number] [address] [place] [address], [place] [address] Dec, [facility] [place] [address] [id number] [place] [id number] Dec, [facility] [address] [id number] [address] [place] [address], [place] [address] Dec, [facility] [address] [id number] [address] [place] [address], [place] [address] Dec, [facility] [address] [facility] [id number] [address] [place] [address] Dec, [facility] [address] [facility] [id number] [address] [place] [address] Nov, [facility] [address] [facility] [id number] [address] [place] [address] Nov, [facility] [address] [facility] [id number] [address] [place] [address] Nov, IMMUNIZATIONS No Known Immunizations SOCIAL HISTORY Never Assessed REASON FOR VISIT PLAN OF CARE VITAL SIGNS Height 62 in 2013-12-26 Weight 319.4 lbs 2013-12-26 Temperature 96.8 degrees Fahrenheit 2013-12-26 Heart Rate 80 bpm 2013-12-26 Respiratory Rate 16 2013-12-26 Blood pressure systolic 153 mmHg 2013-12-26 Blood pressure diastolic 58 mmHg 2013-12-26 MEDICATIONS Unknown Medications RESULTS No Results PROCEDURES [...]
--- OUTSIDE RECORDS SUMMARY | 2019-11-03 19:34 | XMS REPORT ---
Author Author Anca Lucero Doctor Organization [facility] Address Unknown Phone Unavailable Care Team Providers Care Imaging Scheduler Name Role Phone Migration, Doctor Unavailable Unavailable PROBLEMS Type Condition ICD9-CM Code LHL25-FL Code Onset Dates Condition S tatus SNOMED Code Problem Shortness of breath R06.02 Apr, 0 111219174 Problem Unspecified hypothyroidism E03.9 0 11008718 Problem Generalized anxiety disorder F41.1 Apr, 8 0 98107995 Problem Esophageal reflux K21.9 0 24 6318642 Problem Dyslipidemia E78.5 12 Oct, 2017 0 3709 44174 Problem Osteoarthritis of right knee M17.11 May, 0 0 093105152 Problem Unspecified sleep apnea G47.30 0 01646626 Problem Morbid obesity with BMI of 50.0-59.9, adult Z68.43 Active 831822267 Problem Migraine with aura and without status migrainosu s, not intractable G43.109 Active 8118413 Problem Pulmonary embolus I26.99 13 Oct, 2011 0 82490069 Problem Morbid obesity E66.01 Active 09396 6002 Problem Nonintractable migraine G43.009 08 Oct, 2015 0 067157775 Problem Hypothyroidism E03.9 Active 93213 008 Problem Renal stones N20.0 Active 0269765 7 Problem Coronary artery disease I25.10 Active 74351006 Problem Hyperlipidemia LDL goal <70 E78.5 Ac tive 95097162 ALLERGIES No Information ENCOUNTERS Encounter Location Date Diagnosis [facility] [address] [facility] [id number] [address] [place] [address] Nov, Hematuria, unspecified type R31.[address] [address] Nov, Other microscopic hematuria R31.29 [facility] [address] [facility] [id number] [address] [place] [address] Nov, Vaginal gena B37.3 ; Othe r microscopic hematuria R31.29 and Morbid obesity E66.01 [facility] [address] [id number] [address] [place] [address] Nov, [facility] [address] [facility] [id number] [address] [place] [address] Nov, [facility] [address] [facility] [id number] [address] [place] [address] Nov, UTI symptoms R39.9 and Morbi d obesity E66.01 [facility] [address] [id number] [address] [place] [address] Nov, [facility] [address] [facility] [id number] [address] [place] [address] September, [facility] [address] [facility] [id number] [address] [place] [address] September, [facility] [address] [facility] [id number] [address] [place] [address] Aug, Right foot pain M79.671 and Morbid obesity E66.01 [facility] [address] [facility] [id number] [address] [place] [address] Jul, Right foot pain M79.671 and Morbid obesity E66.01 [facility] [address] [facility] [id number] [address] [place] [address] Jul, Injury of right foot, initia l encounter S99.921A and Morbid obesity E66.01 [facility] [address] [facility] [id number] [address] [place] [address] Jul, Recurrent syncope R55 and Mo rbid obesity E66.01 [facility] [address] [facility] [id number] [address] [place] [address] Jul, [facility] [address] [facility] [id number] [address] [place] [address] Jun, Hematuria, unspecified type R31.9 and BMI 50.0-59.9, adult Z68.43 [facility] [address] [facility] [id number] [address] [place] [address] 07 Jun, [address] [address] Jun, 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 [facility] [address] [facility] [id number] [address] [place] [address] May, Ankle pain, right M25.571 an d BMI 50.0-59.9, adult Z68.43 [facility] [address] [facility] [id number] [address] [place] [address] May, [facility] [address] [facility] [id number] [address] [place] [address] May, [facility] [address] [facility] [id number] [address] [place] [address] Apr, [facility] [address] [facility] [id number] [address] [place] [address] Apr, [facility] [address] [facility] [id number] [address] [place] [address] Apr, [facility] [address] [facility] [id number] [address] [place] [address] Apr, BMI 50.0-59.9, adult Z68.43 and Weakness R53.1 [facility] [address] [facility] [id number] [address] [place] [address] Apr, [facility] [address] [facility] [id number] [address] [place] [address] Apr, Dysuria R30.0 ; Hematuria R3 1.9 ; Renal lithiasis N20.0 and BMI 50.0-59.9, adult Z68.43 [facility] [address] [facility] [id number] [address] [place] [address] Apr, [facility] [address] [facility] [id number] [address] [place] [address] Apr, [place] [address] [address] Apr, Hypothyroidism E03.9 [place] [address] [address] Apr, Burning with urination R30.0 ; Type 2 diabetes mellitus with diabetic neuropathic arthropathy, 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 ; Acute bilateral low back pain without sciatica M54.5 and BMI 50.0- 59.9, adult Z68.43 [place] [address] [address] Mar, Hypothyroidism E03.9 [place] [address] [address] Feb, [facility] [address] [address] 15 Jan, 2018 [place] [address] [address] 07 Jan, 2018 Acute non-recurrent maxillar y sinusitis J01.00 and BMI 50.0-59.9, adult Z68.43 [facility] [address] [address] 04 Jan, 2018 Congestion of upper respirat ory tract J98.8 and BMI 50.0-59.9, adult Z68.43 [place] [address] [address] Dec, Type 2 diabetes mellitus wit h diabetic neuropathic arthropathy, without long-term current use of insulin E11.610 ; Morbid obesity with BMI of 50.0-59.9, adult Z68.43 ; Hypothyroidism E03.9 ; Coronary artery disease I25.10 ; Hyperlipidemia LDL goal <70 E78.5 ; Right lower quadrant abdominal pain R10.31 and Acute cystitis with hematuria N30.01 [facility] [address] [address] Dec, Migraine with aura and witho ut status migrainosus, not intractable G43.109 ; Dehydration symptoms R63.8 and BMI 50.0-59.9, adult Z68.43 [place] [address] [address] Oct, [place] [address] [address] Oct, [place] [address] [address] Oct, [place] [address] [address] September, [place] [address] [address] September, Type 2 diabetes mellitus wit h diabetic neuropathic arthropathy, without long-term current use of insulin E11.610 ; Hyperlipidemia, unspecified hyperlipidemia type E78.5 ; Personal history of pulmonary embolism Z86.711 ; Coronary artery disease I25.10 and Hypothyroidism E03.[address] [address] September, [place] [address] [address] Aug, Type 2 diabetes mellitus wit h [...] without aura and with status migrainosus G43.011 [place] [address] [address] Aug, [address] [address] Aug, [facility] [address] [address] Jul, Renal stones N20.0 [facility] [address] [address] Jun, Back pain M54.9 ; Kidney sto radha N20.0 and BMI 50.0-59.9, adult Z68.43 [facility] [address] [address] Jun, [facility] [address] [address] Apr, [place] [address] [address] Apr, [facility] [address] [address] Apr, Right foot pain M79.671 ; Ac hamilton gout involving toe of right foot, 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 and Arthritis M19.90 [facility] [address] [address] 06 Apr, 2017 Gastroesophageal reflux dise ase without esophagitis K21.9 [place] [address] [address] 16 Mar, 2017 Hypothyroidism, unspecified E03.9 [facility] [address] [address] Feb, [place] [address] [address] 25 Jan, 2017 Cervicalgia of occipito-atla nto-axial region M54.2 and Persistent headaches R51 [place] [address] [place] [id number] [place] [address] 20 Jan, 2017 [facility] [address] [address] 12 Jan, 2017 Intractable migraine without aura and with status migrainosus G43.011 ; Cervical spine pain M54.2 ; Hyperlipidemia, unspecified hyperlipidemia type E78.5 ; Hypothyroidism E03.9 and Metabolic syndrome E88.81 [place] [address] [address] Jan, Hypothyroidism, unspecified E03.9 [place] [address] [address] Dec, Hypothyroidism, unspecified E03.9 [place] [address] [address] Dec, Hypothyroidism E03.9 [place] [address] [address] Nov, Laceration of left great toe w/o foreign body w/o damage to nail, initial encounter S91.112A [facility] [address] [address] Oct, Pain in left knee M25.562 an d Arthritis M19.90 [place] [address] [address] Oct, Hypothyroidism, unspecified E03.9 and Hyperlipidemia, unspecified hyperlipidemia type E78.5 [place] [address] [address] Oct, Gastroesophageal reflux dise ase without esophagitis K21.9 [place] [address] [address] 14 Oct, 2016 Metabolic syndrome E88.81 ; Personal history of pulmonary embolism Z86.711 ; Other specified hypothyroidism E03.8 and Hyperlipidemia, unspecified hyperlipidemia type E78.5 [place] [address] [address] 13 Oct, 2016 Personal history of pulmonar y embolism Z86.711 ; Dysuria R30.0 ; Metabolic syndrome E88.81 ; Other specified hypothyroidism E03.8 ; Hyperlipidemia, unspecified hyperlipidemia type E78.5 and Morbid obesity with BMI of 50.0-59.9, adult Z68.[address] [address] September, [facility] [address] [address] September, Wrist pain, left M25.532 and Acute pain of left knee M25.[address] [address] Jul, Dysuria R30.[address] [address] Jul, Dysuria R30.[address] [address] Jul, Left lower quadrant pain R10 .[address] [address] Jul, [address] [address] Jul, Coronary artery disease I25. 10 ; Family history of diabetes mellitus Z83.3 ; Morbid obesity with BMI of 50.0-59.9, adult Z68.43 ; Metabolic syndrome E88.81 ; Personal history of pulmonary embolism Z86.711 ; Gastroesophageal reflux disease without esophagitis K21.9 ; Hypothyroidism, unspecified E03.9 ; Hyperlipidemia, unspecified hyperlipidemia type E78.5 and Left lower quadrant pain R10.32 [facility] [address] [address] Jul, [facility] [address] [address] Jul, Morbid obesity with BMI of 5 0.0-59.9, adult Z68.43 [facility] [address] [address] Jul, Generalized abdominal pain R 10.84 [facility] [place] [address] [place] [id number] [address] [place] [address] Jun, Muscle strain of right upper back, initial encounter S29.012A [facility] [place] [address] [place] [id number] [address] [place] [address] May, Foreign body (FB) in soft ti ssue M79.5 [place] [address] [address] Mar, Hypothyroidism, unspecified E03.9 and Arthritis M19.90 [place] [address] [address] Feb, Coronary artery disease I25. 10 ; Morbid obesity with BMI of 50.0- 59.9, adult Z68.43 ; Metabolic syndrome E88.81 ; Gastroesophageal reflux disease without esophagitis K21.9 ; Hypothyroidism, unspecified E03.9 ; Personal history of pulmonary embolism Z86.711 and Hyperlipidemia, unspecified hyperlipidemia type E78.5 [place] [address] [address] [place] [id number] [address] [place] [address] Feb, [facility] [place] [address] [address] Jan, Acute right-sided thoracic b ack pain M54.6 [place] [address] [address] Jan, Acute pain of left knee M25. 562 [place] [address] [address] Dec, Dysuria R30.0 ; Metabolic sy ndrome E88.81 ; Acute pain of left knee M25.562 ; Acute cystitis with hematuria N30.01 and Acute left eye pain H57.12 [place] [address] [address] [place] [id number] [address] [place] [address] Dec, [place] [address] [place] [id number] [address] [place] [address] Dec, [facility] [address] [facility] [id number] [address] [place] [address] Dec, Hypothyroidism, unspecified E03.9 [facility] [address] [facility] [id number] [address] [place] [address] Dec, [place] [address] [facility] [id number] [address] [place] [address] Nov, Peripheral edema R60.9 and A cute pain of left knee M25.562 [facility] [place] [address] [facility] [id number] [address] [place] [address] September, [place] [address] [facility] [id number] [address] [place] [address] September, Metabolic syndrome E88.81 an d Allergy, subsequent encounter T78.40XD [facility] [place] [address] [facility] [id number] [address] [place] [address] September, Muscle strain T14.8 [place] [address] [facility] [id number] [address] [place] [address] Aug, Chest pressure R07.89 ; [place] bolic syndrome E88.81 ; Morbid obesity with BMI of 50.0-59.9, adult Z68.43 ; Esophageal reflux 530.81 and Shortness of breath R06.02 [place] [address] [facility] [id number] [address] [place] [address] Aug, [place] [address] [facility] [id number] [address] [place] [address] Aug, [place] [address] [facility] [id number] [address] [place] [address] Aug, Hypothyroidism, unspecified E03.9 [place] [address] [facility] [id number] [address] [place] [address] Aug, Routine health maintenance Z 00.00 [facility] [address] [place] [id number] [address] [place] [address] Aug, [place] [address] [address] Jul, 2016 Routine health maintenance Z 00.00 ; Family history of diabetes mellitus Z83.3 ; Family history of cancer Z80.9 and Morbid obesity with BMI of 50.0-59.9, adult Z68.43 [facility] [address] [address] Jul, Allergic rhinitis J30.9 and Postnasal drip R09.82 [place] [address] [address] Jul, Influenza J11.1 [facility] [place] [address] [address] Jul, Dysuria R30.0 [place] [address] [address] Apr, [place] [address] [address] Mar, Acute upper respiratory infe ction, unspecified J06.9 and Hypothyroidism E03.9 [place] [address] [place] [id number] [address] [place] [address] Mar, [place] [address] [address] Feb, Coronary artery disease I25. 10 [place] [address] [place] [id number] [address] [place] [address] Feb, Left foot pain M79.672 [place] [address] [place] [id number] [address] [place] [address] Jan, UTI (urinary tract infection ) 599.0 [place] [address] [address] [place] [id number] [address] [place] [address] Jan, Urinary tract infection, sit e not specified 599.0 [facility] [address] [id number] [address] [place] [address] Jan, Urinary tract infection, sit e not specified 599.0 [facility] [address] [id number] [address] [place] [address] Jan, [facility] [address] [id number] [address] [place] [address] Dec, Headache 784.0 [facility] [address] [id number] [address] [place] [address] Dec, Urinary tract infection, sit e not specified 599.0 [place] [address] [id number] [address] [place] [address] Dec, Urinary tract infection, sit e not specified 599.0 [place] [address] [id number] [address] [place] [address] Dec, Urinary tract infection, sit e not specified 599.0 [facility] [address] [id number] [address] [place] [address] Nov, Unspecified sleep apnea 780. 57 ; Encounter for long-term (current) use of anticoagulants V58.61 ; Routine general medical examination at health care facility V70.0 and Arthritis of both knees 716.96 [place] [address] [address] [facility] [id number] [address] [place] [address] September, Cat bite of hand 882.0 and R ectal bleeding 569.3 [facility] [address] [id number] [address] [place] [address] Aug, [facility] [address] [id number] [address] [place] [address] Aug, [facility] [address] [facility] [id number] [address] [place] [address] Jul, [facility] [address] [facility] [id number] [address] [place] [address] Jul, [facility] [address] [id number] [address] [place] [address], [place] [address] Jul, [facility] [address] [id number] [address] [place] [address], [place] [address] Jul, [facility] [address] [id number] [address] [place] [address], [place] [address] Jul, [facility] [address] [id number] [address] [place] [address], [place] [address] Jul, [facility] [address] [id number] [address] [place] [address], [place] [address] Jul, [facility] [address] [id number] [address] [place] [address], [place] [address] Jul, [facility] [address] [id number] [address] [place] [address], [place] [address] May, [facility] [address] [id number] [address] [place] [address], [place] [address] May, [facility] [address] [id number] [address] [place] [address], [place] [address] May, [facility] [address] [id number] [address] [place] [address], [place] [address] May, [facility] [address] [id number] [address] [place] [address], [place] [address] May, [facility] [address] [id number] [address] [place] [address], [place] [address] May, [facility] [address] [id number] [address] [place] [address], [place] [address] May, [facility] [address] [id number] [address] [place] [address], [place] [address] Mar, [facility] [address] [id number] [address] [place] [address], [place] [address] Mar, [facility] [address] [id number] [address] [place] [address], [place] [address] 08 Jan, 2013 [facility] [address] [id number] [address] [place] [address], [place] [address] 08 Jan, 2013 [facility] [address] [id number] [address] [place] [address], [place] [address] 08 Jan, 2013 [facility] [address] [id number] [address] [place] [address], [place] [address] 08 Jan, 2013 [facility] [address] [id number] [address] [place] [address], [place] [address] 05 Jan, 2013 [facility] [address] [id number] [address] [place] [address], [place] [address] 05 Jan, 2013 [facility] [address] [id number] [address] [place] [address], [place] [address] Dec, [facility] [address] [id number] [address] [place] [address], [place] [address] Dec, [facility] [address] [id number] [address] [place] [address], [place] [address] Dec, [facility] [address] [id number] [address] [place] [address], [place] [address] Dec, [facility] [address] [id number] [address] [place] [address], [place] [address] Dec, [facility] [address] [id number] [address] [place] [address], [place] [address] Dec, [facility] [address] [id number] [address] [place] [address], [place] [address] Dec, [facility] [address] [id number] [address] [place] [address], [place] [address] Dec, [facility] [address] [id number] [address] [place] [address], [place] [address] Dec, [facility] [address] [id number] [address] [place] [address], [place] [address] Dec, [facility] [address] [id number] [facility] [address] Nov, [facility] [address] [id number] [address] [place] [address], [place] [address] Nov, [facility] [address] [id number] [address] [place] [address], [place] [address] September, [facility] [address] [id number] [address] [place] [address], [place] [address] September, [facility] [address] [id number] [address] [place] [address], [place] [address] September, [facility] [address] [id number] [address] [place] [address], [place] [address] September, [facility] [address] [id number] [address] [place] [address], [place] [address] Aug, [facility] [address] [id number] [address] [place] [address], [place] [address] Aug, [facility] [address] [id number] [address] [place] [address], [place] [address] Aug, [facility] [address] [id number] [address] [place] [address], [place] [address] Aug, [facility] [address] [id number] [address] [place] [address], [place] [address] Aug, [facility] [address] [id number] [address] [place] [address], [place] [address] Aug, [facility] [address] [id number] [address] [place] [address], [place] [address] Aug, [facility] [address] [id number] [address] [place] [address], [place] [address] Aug, [facility] [address] [id number] [address] [place] [address], [place] [address] Aug, [facility] [address] [id number] [address] [place] [address], [place] [address] 07 Aug, 2013 [facility] [address] [id number] [address] [facility] [address] Aug, [facility] [address] [id number] [address] [place] [address], [place] [address] Aug, [facility] [address] [id number] [facility] [address] Jul, [facility] [address] [id number] [address] [place] [address], [place] [address] Jul, [facility] [address] [id number] [address] [place] [address], [place] [address] Jul, [facility] [address] [id number] [address] [place] [address], [place] [address] Jul, [facility] [address] [id number] [address] [place] [address], [place] [address] Jul, [facility] [address] [id number] [address] [place] [address], [place] [address] Jul, [facility] [address] [id number] [address] [place] [address], [place] [address] Jul, [facility] [address] [id number] [address] [place] [address], [place] [address] 05 Jul, 2013 [facility] [address] [id number] [address] [place] [address], [place] [address] Jul, [facility] [address] [id number] [address] [place] [address], [place] [address] Jul, [facility] [address] [id number] [address] [place] [address], [place] [address] Jun, [facility] [address] [id number] [address] [place] [address], [place] [address] Jun, [facility] [address] [id number] [address] [place] [address], [place] [address] 17 Jun, 2013 [facility] [address] [id number] [address] [place] [address], [place] [address] 17 Jun, 2013 [facility] [address] [id number] [address] [place] [address], [place] [address] Jun, [facility] [address] [id number] [address] [place] [address], [place] [address] Jun, [facility] [address] [id number] [address] [place] [address], [place] [address] Jun, [facility] [address] [id number] [address] [place] [address], [place] [address] Jun, [facility] [address] [id number] [address] [place] [address], [place] [address] Jun, [facility] [address] [id number] [address] [place] [address], [place] [address] Jun, [facility] [address] [id number] [address] [place] [address], [place] [address] Jun, [facility] [address] [id number] [address] [place] [address], [place] [address] Jun, [facility] [address] [id number] [address] [place] [address], [place] [address] May, [facility] [address] [id number] [address] [place] [address], [place] [address] May, [facility] [address] [id number] [address] [place] [address], [place] [address] May, [facility] [address] [id number] [address] [place] [address], [place] [address] May, [facility] [address] [id number] [address] [place] [address], [place] [address] May, [facility] [address] [id number] [address] [place] [address], [place] [address] May, [facility] [address] [id number] [address] [place] [address] May, [facility] [address] [id number] [address] [place] [address], [place] [address] May, [facility] [address] [id number] [address] [place] [address], [place] [address] May, [facility] [address] [id number] [address] [place] [address], [place] [address] May, [facility] [address] [id number] [address] [place] [address], [place] [address] May, [facility] [address] [id number] [address] [place] [address], [place] [address] May, [facility] [address] [id number] [address] [place] [address], [place] [address] May, [facility] [address] [id number] [address] [place] [address], [place] [address] May, [facility] [address] [id number] [address] [place] [address], [place] [address] May, [facility] [address] [id number] [address] [place] [address], [place] [address] Apr, [facility] [address] [id number] [address] [place] [address], [place] [address] Apr, [facility] [address] [id number] [address] [place] [address], [place] [address] Apr, [facility] [address] [id number] [address] [place] [address], [place] [address] Apr, [facility] [address] [id number] [address] [place] [address], [place] [address] Mar, [facility] [address] [id number] [address] [place] [address], [place] [address] Mar, [facility] [address] [id number] [address] [place] [address], [place] [address] Mar, [facility] [address] [id number] [address] [place] [address], [place] [address] Mar, [facility] [address] [id number] [address] [place] [address], [place] [address] Mar, [facility] [address] [id number] [address] [place] [address], [place] [address] Mar, [facility] [address] [id number] [address] [place] [address], [place] [address] Mar, [facility] [address] [id number] [address] [place] [address], [place] [address] Mar, [facility] [address] [id number] [address] [place] [address], [place] [address] Mar, [facility] [address] [id number] [address] [place] [address], [place] [address] Mar, [facility] [address] [id number] [address] [place] [address], [place] [address] Mar, [facility] [address] [id number] [address] [place] [address], [place] [address] Mar, [facility] [address] [id number] [address] [place] [address], [place] [address] Feb, [facility] [address] [id number] [address] [place] [address], [place] [address] 18 Jan, 2013 [facility] [address] [id number] [address] [place] [address], [place] [address] 17 Jan, 2013 [facility] [address] [id number] [address] [place] [address], [place] [address] 06 Jan, 2012 [facility] [address] [id number] [address] [place] [address], [place] [address] 04 Jan, 2013 [facility] [address] [id number] [address] [place] [address], [place] [address] 03 Jan, 2013 [facility] [address] [id number] [address] [place] [address], [place] [address] Dec, [facility] [address] [id number] [address] [place] [address], [place] [address] Dec, [facility] [address] [id number] [address] [place] [address], [place] [address] Dec, [facility] [address] [id number] [address] [place] [address], [place] [address] Dec, [facility] [address] [id number] [address] [place] [address], [place] [address] Dec, [facility] [address] [id number] [address] [place] [address], [place] [address] Dec, [facility] [address] [id number] [address] [place] [address], [place] [address] Dec, [facility] [address] [id number] [address] [place] [address], [place] [address] Dec, [facility] [address] [id number] [address] [place] [address], [place] [address] Nov, [facility] [address] [id number] [address] [place] [address], [place] [address] Nov, [facility] [address] [id number] [address] [place] [address], [place] [address] Nov, [facility] [address] [id number] [address] [place] [address], [place] [address] Nov, [facility] [address] [id number] [address] [place] [address], [place] [address] Nov, [facility] [address] [id number] [address] [place] [address], [place] [address] Nov, [facility] [address] [id number] [address] [place] [address], [place] [address] Oct, [facility] [place] [address] [id number] [place] [id number] Oct, [facility] [place] [address] [id number] [place] [id number] Oct, [facility] [place] [address] [id number] [place] [id number] Oct, [facility] [place] [address] [id number] [place] [id number] Oct, [facility] [address] [id number] [address] [place] [address], [place] [address] Oct, [facility] [address] [id number] [address] [place] [address], [place] [address] Oct, [facility] [address] [id number] [address] [place] [address], [place] [address] Oct, [facility] [address] [id number] [address] [place] [address], [place] [address] Oct, [facility] [address] [id number] [address] [place] [address], [place] [address] Oct, [facility] [address] [id number] [address] [place] [address] Oct, [facility] [address] [id number] [address] [place] [address], [place] [address] September, [facility] [address] [id number] [address] [place] [address] Aug, [facility] [address] [id number] [address] [place] [address] Aug, [facility] [address] [id number] [address] [place] [address] Aug, [facility] [address] [id number] [address] [place] [address], [place] [address] Aug, [facility] [address] [id number] [address] [place] [address], [place] [address] Jul, [facility] [address] [id number] [address] [place] [address] Jul, [facility] [address] [id number] [address] [place] [address] Jul, [facility] [address] [id number] [address] [place] [address], [place] [address] 05 Jul, 2012 [facility] [address] [id number] [address] [place] [address], [place] [address] 04 Jul, 2012 [facility] [address] [id number] [address] [place] [address], [place] [address] 19 Jun, 2012 [facility] [address] [id number] [address] [place] [address], [place] [address] 13 Jun, 2012 [facility] [address] [id number] [address] [place] [address], [place] [address] Jun, [facility] [address] [id number] [address] [place] [address], [place] [address] May, [facility] [address] [id number] [address] [place] [address], [place] [address] May, [facility] [address] [id number] [address] [place] [address], [place] [address] May, [facility] [address] [id number] [address] [place] [address], [place] [address] May, [facility] [address] [id number] [address] [place] [address], [place] [address] May, [facility] [address] [id number] [address] [place] [address], [place] [address] May, [facility] [address] [id number] [address] [place] [address], [place] [address] 18 Apr, 2012 [facility] [address] [id number] [address] [place] [address], [place] [address] 18 Apr, 2012 [facility] [address] [id number] [address] [place] [address], [place] [address] 13 Apr, 2012 [facility] [address] [id number] [address] [place] [address], [place] [address] 13 Apr, 2012 [facility] [address] [id number] [address] [place] [address], [place] [address] Apr, [facility] [address] [id number] [address] [place] [address], [place] [address] Apr, [facility] [address] [id number] [address] [place] [address], [place] [address] Apr, [facility] [address] [id number] [address] [place] [address], [place] [address] Mar, [facility] [address] [id number] [address] [place] [address], [place] [address] Mar, [facility] [address] [id number] [address] [place] [address], [place] [address] Mar, [facility] [address] [id number] [address] [place] [address], [place] [address] Mar, [facility] [address] [id number] [address] [place] [address], [place] [address] 18 Jan, 2012 [facility] [address] [id number] [address] [place] [address], [place] [address] 10 Jan, 2012 [facility] [address] [id number] [address] [place] [address], [place] [address] 06 Jan, 2012 [facility] [address] [id number] [address] [place] [address], [place] [address] Jan, [facility] [place] [address] [id number] [place] [id number] Dec, [facility] [address] [id number] [address] [place] [address], [place] [address] Dec, [facility] [place] [address] [id number] [place] [id number] Dec, [facility] [address] [id number] [address] [place] [address], [place] [address] Dec, [facility] [address] [id number] [address] [place] [address], [place] [address] Dec, [facility] [address] [facility] [id number] [address] [place] [address] Dec, [facility] [address] [facility] [id number] [address] [place] [address] Nov, [facility] [address] [facility] [id number] [address] [place] [address] Nov, [facility] [address] [facility] [id number] [address] [place] [address] Nov, IMMUNIZATIONS No Known Immunizations SOCIAL HISTORY Never Assessed REASON FOR VISIT PLAN OF CARE VITAL SIGNS MEDICATIONS Unknown Medications RESULTS No Results PROCEDURES Procedure Date Ordered Result Body Site URINE CULTURE/COLONY COUNT Dec 19, 2013 INSTRUCTIONS MEDICATIONS ADMINISTERED No Known [...] asthma(493.90) Medical History Near syncope Medical History custodial current use of anticoagulant Medical History Renal [...]
--- OUTSIDE RECORDS SUMMARY | 2019-11-03 19:35 | XMS REPORT ---
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 Name Role Phone Migration, Doctor Unavailable Unavailable PROBLEMS Type Condition ICD9-CM Code [id number] Code Onset Dates Condition S tatus SNOMED Code Problem Shortness of breath R06.02 Apr, 0 915460998 Problem Unspecified hypothyroidism E03.9 0 03201213 Problem Generalized anxiety disorder F41.1 Apr, 8 0 24677004 Problem Esophageal reflux K21.9 0 24 2215541 Problem Dyslipidemia E78.5 Oct, 0 3709 56977 Problem Osteoarthritis of right knee M17.11 May, 0 0 469504733 Problem Unspecified sleep apnea G47.30 0 50217970 Problem Morbid obesity with BMI of 50.0-59.9, adult Z68.43 Active 071208196 Problem Migraine with aura and without status migrainosu s, not intractable G43.109 Active 7202939 Problem Pulmonary embolus I26.99 13 Oct, 2011 0 79837326 Problem Morbid obesity E66.01 Active 68994 6002 Problem Nonintractable migraine G43.009 08 Oct, 2015 0 633003096 Problem Hypothyroidism E03.9 Active 18286 008 Problem Renal stones N20.0 Active 3530488 7 Problem Coronary artery disease I25.10 Active 10795530 Problem Hyperlipidemia LDL goal <70 E78.5 Ac tive 76445247 ALLERGIES No Information ENCOUNTERS Encounter Location Date Diagnosis [facility] [address] [facility] [id number] [address] [place] [address] Nov, [facility] [address] [facility] [id number] [address] [place] [phone] Nov, [facility] [address] [facility] [id number] [address] [place] [address] Nov, UTI symptoms R39.9 and Morbi d obesity E66.01 [facility] [address] [place] [id number] [address] [place] [address] Nov, [facility] [address] [place] [id number] [place] [address] September, [facility] [address] [facility] [id number] [address] [place] [address] September, [facility] [address] [place] [address] Aug, Right foot pain M79.671 and Morbid obesity E66.01 [facility] [address] [facility] [id number] [address] [place] [address] Jul, Right foot pain M79.671 and Morbid obesity E66.01 [facility] [address] [facility] [id number] [address] [place] [address] Jul, Injury of right foot, initia l encounter S99.921A and Morbid obesity E66.01 [facility] [address] [place] [id number] [address] [place] [address] Jul, Recurrent syncope R55 and Mo rbid obesity E66.01 [place] [address] [place] [address] Jul, [facility] [address] [place] [id number] [address] [place] [address] Jun, Hematuria, unspecified type R31.9 and BMI 50.0-59.9, adult Z68.43 [facility] [address] [place] [id number] [address] [place] [address] 07 Jun, [address] [address] 04 Jun, 2018 residential current use of anticoagulant Z 79.01 [facility] [address] [facility] [id number] [address] [place] [address] May, Ankle pain, right M25.571 an d BMI 50.0-59.9, adult Z68.43 [facility] [address] [place] [address] May, [facility] [address] [address] May, [facility] [address] [place] [id number] [place] [address] Apr, [facility] [address] [address] Apr, [facility] [address] [address] Apr, [facility] [address] [place] [id number] [place] [address] Apr, BMI 50.0-59.9, adult Z68.43 and Weakness R53.1 [place] [address] [address] Apr, [facility] [address] [address] Apr, Dysuria R30.0 ; Hematuria R3 1.9 ; Renal lithiasis N20.0 and BMI 50.0-59.9, adult Z68.43 [place] [address] [place] [id number] [address] [place] [address] Apr, [place] [address] [place] [id number] [address] [place] [address] Apr, [place] [address] [address] Apr, Hypothyroidism E03.9 [place] [address] [address] Apr, Burning with urination R30.0 ; Type 2 diabetes mellitus with diabetic neuropathic arthropathy, 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 ; Acute bilateral low back pain without sciatica M54.5 and BMI 50.0- 59.9, adult Z68.43 [facility] [address] [address] Mar, Hypothyroidism E03.9 [place] [address] [address] Feb, [facility] [place] [address] [address] Jan, [place] [address] [address] 07 Jan, 2018 Acute non-recurrent maxillar y sinusitis J01.00 and BMI 50.0-59.9, adult Z68.43 [facility] [place] [address] [address] 04 Jan, 2018 Congestion of upper respirat ory tract J98.8 and BMI 50.0-59.9, adult Z68.43 [place] [address] [address] Dec, Type 2 diabetes mellitus wit h diabetic neuropathic arthropathy, without long-term current use of insulin E11.610 ; Morbid obesity with BMI of 50.0-59.9, adult Z68.43 ; Hypothyroidism E03.9 ; Coronary artery disease I25.10 ; Hyperlipidemia LDL goal <70 E78.5 ; Right lower quadrant abdominal pain R10.31 and Acute cystitis with hematuria N30.01 [facility] [place] [address] [address] Dec, Migraine with aura and witho ut status migrainosus, not intractable G43.109 ; Dehydration symptoms R63.8 and BMI 50.0-59.9, adult Z68.43 [place] [address] [address] Oct, [place] [address] [address] Oct, [place] [address] [address] Oct, [place] [address] [address] September, [place] [address] [address] September, Type 2 diabetes mellitus wit h diabetic neuropathic arthropathy, without long-term current use of insulin E11.610 ; Hyperlipidemia, unspecified hyperlipidemia type E78.5 ; Personal history of pulmonary embolism Z86.711 ; Coronary artery disease I25.10 and Hypothyroidism E03.9 [place] [address] [address] September, [place] [address] [address] Aug, Type 2 diabetes mellitus wit h [...] without aura and with status migrainosus G43.011 [place] [address] [address] Aug, [place] [address] [address] Aug, [place] [address] [address] Jul, Renal stones N20.0 [facility] [address] [address] Jun, Back pain M54.9 ; Kidney sto radha N20.0 and BMI 50.0-59.9, adult Z68.43 [place] [address] [address] Jun, [facility] [address] [facility] [id number] [address] [place] [address] Apr, [facility] [address] [facility] [id number] [address] [place] [address] Apr, [facility] [address] [facility] [id number] [address] [place] [address] Apr, Right foot pain M79.671 ; Ac hopi gout involving toe of right foot, 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 and Arthritis M19.90 [facility] [address] [facility] [id number] [address] [place] [address] 06 Apr, 2017 Gastroesophageal reflux dise ase without esophagitis K21.9 [facility] [address] [facility] [id number] [address] [place] [address] 16 Mar, 2017 Hypothyroidism, unspecified E03.9 [place] [address] [place] [id number] [address] [place] [address] Feb, [facility] [address] [place] [id number] [address] [place] [address] 25 Jan, 2017 Cervicalgia of occipito-atla nto-axial region M54.2 and Persistent headaches R51 [facility] [address] [facility] [id number] [address] [place] [address] 20 Jan, 2017 [place] [address] [place] [id number] [address] [place] [address] 12 Jan, 2017 Intractable migraine without aura and with status migrainosus G43.011 ; Cervical spine pain M54.2 ; Hyperlipidemia, unspecified hyperlipidemia type E78.5 ; Hypothyroidism E03.9 and Metabolic syndrome E88.81 [place] [address] [facility] [id number] [address] [place] [address] Jan, Hypothyroidism, unspecified E03.9 [facility] [address] [facility] [id number] [address] [place] [address] Dec, Hypothyroidism, unspecified E03.9 [place] [address] [place] [address] 14 Dec, 2016 Hypothyroidism E03.9 [place] [address] [address] Nov, Laceration of left great toe w/o foreign body w/o damage to nail, initial encounter S91.112A [facility] [address] [address] Oct, Pain in left knee M25.562 an d Arthritis M19.90 [place] [address] [address] Oct, Hypothyroidism, unspecified E03.9 and Hyperlipidemia, unspecified hyperlipidemia type E78.5 [place] [address] [address] Oct, Gastroesophageal reflux dise ase without esophagitis K21.9 [place] [address] [address] 14 Oct, 2016 Metabolic syndrome E88.81 ; Personal history of pulmonary embolism Z86.711 ; Other specified hypothyroidism E03.8 and Hyperlipidemia, unspecified hyperlipidemia type E78.5 [place] [address] [address] 13 Oct, 2016 Personal history of pulmonar y embolism Z86.711 ; Dysuria R30.0 ; Metabolic syndrome E88.81 ; Other specified hypothyroidism E03.8 ; Hyperlipidemia, unspecified hyperlipidemia type E78.5 and Morbid obesity with BMI of 50.0-59.9, adult Z68.43 [place] [address] [address] September, [facility] [address] [address] September, Wrist pain, left M25.532 and Acute pain of left knee M25.562 [place] [address] [address] Jul, Dysuria R30.0 [place] [address] [address] Jul, Dysuria R30.0 [place] [address] [address] Jul, Left lower quadrant pain R10 .32 [place] [address] [address] Jul, [place] [address] [address] Jul, Coronary artery disease I25. 10 ; Family history of diabetes mellitus Z83.3 ; Morbid obesity with BMI of 50.0-59.9, adult Z68.43 ; Metabolic syndrome E88.81 ; Personal history of pulmonary embolism Z86.711 ; Gastroesophageal reflux disease without esophagitis K21.9 ; Hypothyroidism, unspecified E03.9 ; Hyperlipidemia, unspecified hyperlipidemia type E78.5 and Left lower quadrant pain R10.32 [facility] [address] [address] Jul, [facility] [address] [address] Jul, Morbid obesity with BMI of 5 0.0-59.9, adult Z68.43 [facility] [address] [address] Jul, Generalized abdominal pain R 10.84 [facility] [address] [address] Jun, Muscle strain of right upper back, initial encounter S29.012A [facility] [address] [address] May, Foreign body (FB) in soft ti ssue M79.[address] [address] Mar, Hypothyroidism, unspecified E03.9 and Arthritis M19.90 [place] [address] [place] [id number] [place] [address] Feb, Coronary artery disease I25. 10 ; Morbid obesity with BMI of 50.0- 59.9, adult Z68.43 ; Metabolic syndrome E88.81 ; Gastroesophageal reflux disease without esophagitis K21.9 ; Hypothyroidism, unspecified E03.9 ; Personal history of pulmonary embolism Z86.711 and Hyperlipidemia, unspecified hyperlipidemia type E78.5 [place] [address] [facility] [id number] [address] [place] [address] Feb, [facility] [address] [facility] [id number] [place] [address] Jan, Acute right-sided thoracic b ack pain M54.6 [place] [address] [place] [id number] [place] [address] Jan, Acute pain of left knee M25. 562 [place] [address] [place] [id number] [place] [address] Dec, Dysuria R30.0 ; Metabolic sy ndrome E88.81 ; Acute pain of left knee M25.562 ; Acute cystitis with hematuria N30.01 and Acute left eye pain H57.12 [place] [address] [address] [facility] [id number] [address] [place] [address] Dec, [place] [address] [place] [id number] [address] [place] [address] Dec, [place] [address] [facility] [id number] [address] [place] [address] Dec, Hypothyroidism, unspecified E03.9 [place] [address] [facility] [id number] [address] [place] [address] Dec, [place] [address] [facility] [id number] [address] [place] [address] Nov, Peripheral edema R60.9 and A cute pain of left knee M25.562 [facility] [place] [address] [id number] [address] [place] [address] September, [place] [address] [facility] [id number] [address] [place] [address] September, Metabolic syndrome E88.81 an d Allergy, subsequent encounter T78.40XD [facility] [place] [address] [address] [facility] [id number] [address] [place] [address] September, Muscle strain T14.8 [place] [address] [facility] [id number] [address] [place] [address] Aug, Chest pressure R07.89 ; [place] bolic syndrome E88.81 ; Morbid obesity with BMI of 50.0-59.9, adult Z68.43 ; Esophageal reflux 530.81 and Shortness of breath R06.02 [place] [address] [address] [facility] [id number] [address] [place] [address] Aug, [place] [address] [facility] [id number] [address] [place] [address] Aug, [place] [address] [facility] [id number] [address] [place] [address] Aug, Hypothyroidism, unspecified E03.9 [place] [address] [address] [facility] [id number] [address] [place] [address] Aug, Routine health maintenance Z 00.00 [facility] [place] [address] [id number] [address] [place] [address] Aug, [place] [address] [facility] [id number] [address] [place] [address] Jul, Routine health maintenance Z 00.00 ; Family history of diabetes mellitus Z83.3 ; Family history of cancer Z80.9 and Morbid obesity with BMI of 50.0-59.9, adult Z68.43 [facility] [place] [address] [address] [facility] [id number] [address] [place] [address] Jul, Allergic rhinitis J30.9 and Postnasal drip R09.82 [facility] [address] [facility] [id number] [address] [place] [address] Jul, Influenza J11.1 [facility] [address] [facility] [id number] [address] [place] [address] 08 Jul, 2015 Dysuria R30.0 [facility] [address] [place] [id number] [address] [place] [address] Apr, [facility] [address] [address] Mar, Acute upper respiratory infe ction, unspecified J06.9 and Hypothyroidism E03.9 [facility] [address] [place] [id number] [place] [address] Mar, [facility] [address] [address] Feb, Coronary artery disease I25. 10 [facility] [address] [place] [id number] [address] [place] [address] 16 Feb, 2015 Left foot pain M79.672 [place] [address] [place] [address] Jan, UTI (urinary tract infection ) 599.0 [place] [address] [place] [address] Jan, Urinary tract infection, sit e not specified 599.0 [facility] [address] [place] [id number] [address] [place] [address] Jan, Urinary tract infection, sit e not specified 599.0 [place] [address] [place] [id number] [place] [address] Jan, [place] [address] [place] [address] Dec, Headache 784.0 [facility] [address] [place] [address] Dec, Urinary tract infection, sit e not specified 599.0 [facility] [address] [id number] [address] [place] [address] Dec, Urinary tract infection, sit e not specified 599.0 [facility] [address] [facility] [id number] [address] [place] [address] Dec, Urinary tract infection, sit e not specified 599.0 [facility] [address] [id number] [address] [place] [address] Nov, Unspecified sleep apnea 780. 57 ; Encounter for long-term (current) use of anticoagulants V58.61 ; Routine general medical examination at health care facility V70.0 and Arthritis of both knees 716.96 [facility] [address] [facility] [id number] [address] [place] [address] September, Cat bite of hand 882.0 and R ectal bleeding 569.3 [facility] [address] [id number] [address] [place] [address] Aug, [facility] [address] [id number] [address] [place] [address] Aug, [facility] [address] [facility] [id number] [address] [place] [address] Jul, [facility] [address] [id number] [address] [place] [address] Jul, [facility] [address] [id number] [address] [place] [address] Jul, [facility] [address] [facility] [id number] [address] [place] [address] Jul, [facility] [address] [facility] [id number] [address] [place] [address] Jul, [facility] [address] [facility] [id number] [address] [place] [phone] Jul, [facility] [address] [id number] [address] [place] [address], [place] [address] Jul, [facility] [address] [id number] [address] [place] [address], [place] [address] Jul, [facility] [address] [id number] [address] [place] [address], [place] [address] May, [facility] [address] [id number] [address] [place] [address], [place] [address] May, [facility] [address] [id number] [address] [place] [address], [place] [address] May, [facility] [address] [id number] [address] [place] [address], [place] [address] May, [facility] [address] [id number] [address] [place] [address], [place] [address] May, [facility] [address] [id number] [address] [place] [address], [place] [address] May, [facility] [address] [id number] [address] [place] [address], [place] [address] May, [facility] [address] [id number] [address] [place] [address], [place] [address] Mar, [facility] [address] [id number] [address] [place] [address], [place] [address] Mar, [facility] [address] [id number] [address] [place] [address], [place] [address] 08 Jan, 2014 [facility] [address] [id number] [address] [place] [address], [place] [address] Jan, [facility] [address] [id number] [address] [place] [address], [place] [address] Jan, [facility] [address] [id number] [address] [place] [address], [place] [address] Jan, [facility] [address] [id number] [address] [place] [address] [place] [address] Jan, [facility] [address] [id number] [facility] [place] [address] Jan, [facility] [address] [id number] [address] [place] [address], [place] [address] Dec, [facility] [address] [id number] [address] [place] [address], [place] [address] Dec, [facility] [address] [id number] [address] [place] [address], [place] [address] Dec, [facility] [address] [id number] [address] [place] [address], [place] [address] Dec, [facility] [address] [id number] [address] [place] [address], [place] [address] Dec, [facility] [address] [id number] [address] [place] [address], [place] [address] Dec, [facility] [address] [id number] [address] [place] [address], [place] [address] Dec, [facility] [address] [id number] [address] [place] [address], [place] [address] Dec, [facility] [address] [id number] [address] [place] [address], [place] [address] Dec, [facility] [address] [id number] [address] [place] [address], [place] [address] Dec, [facility] [address] [id number] [address] [place] [address], [place] [address] Nov, [facility] [address] [id number] [address] [place] [address], [place] [address] Nov, [facility] [address] [id number] [address] [place] [address], [place] [address] September, [facility] [address] [id number] [address] [place] [address], [place] [address] September, [facility] [address] [id number] [facility] [place] [address] September, [facility] [address] [id number] [address] [place] [address], [place] [address] September, [facility] [address] [id number] [address] [place] [address], [place] [address] Aug, [facility] [address] [id number] [address] [place] [address], [place] [address] Aug, [facility] [address] [id number] [address] [place] [address], [place] [address] Aug, [facility] [address] [id number] [address] [place] [address], [place] [address] Aug, [facility] [address] [id number] [address] [place] [address], [place] [address] Aug, [facility] [address] [id number] [address] [place] [address], [place] [address] Aug, [facility] [address] [id number] [address] [place] [address], [place] [address] Aug, [facility] [address] [id number] [address] [place] [address], [place] [address] Aug, [facility] [address] [id number] [address] [place] [address], [place] [address] Aug, [facility] [address] [id number] [address] [place] [address], [place] [address] Aug, [facility] [address] [id number] [address] [place] [address], [place] [address] Aug, [facility] [address] [id number] [address] [place] [address], [place] [address] Aug, [facility] [address] [id number] [address] [place] [address], [place] [address] Jul, [facility] [address] [id number] [address] [place] [address], [place] [address] Jul, [facility] [address] [id number] [facility] [place] [address] Jul, [facility] [address] [id number] [address] [place] [address], [place] [address] Jul, [facility] [address] [id number] [address] [place] [address], [place] [address] Jul, [facility] [address] [id number] [address] [place] [address], [place] [address] Jul, [facility] [address] [id number] [address] [place] [address], [place] [address] Jul, [facility] [address] [id number] [address] [place] [address], [place] [address] Jul, [facility] [address] [id number] [address] [place] [address], [place] [address] Jul, [facility] [address] [id number] [address] [place] [address], [place] [address] Jul, [facility] [address] [id number] [address] [place] [address], [place] [address] Jun, [facility] [address] [id number] [address] [place] [address], [place] [address] Jun, [facility] [address] [id number] [address] [place] [address], [place] [address] Jun, [facility] [address] [id number] [address] [place] [address], [place] [address] Jun, [facility] [address] [id number] [address] [place] [address], [place] [address] Jun, [facility] [address] [id number] [address] [place] [address], [place] [address] Jun, [facility] [address] [id number] [address] [place] [address], [place] [address] Jun, [facility] [address] [id number] [address] [place] [address], [place] [address] Jun, [facility] [address] [id number] [address] [place] [address], [place] [address] Jun, [facility] [address] [id number] [address] [place] [address], [place] [address] Jun, [facility] [address] [id number] [address] [place] [address], [place] [address] Jun, [facility] [address] [id number] [address] [place] [address], [place] [address] Jun, [facility] [address] [id number] [address] [place] [address], [place] [address] May, [facility] [address] [id number] [address] [place] [address], [place] [address] May, [facility] [address] [id number] [address] [place] [address], [place] [address] May, [facility] [address] [id number] [address] [place] [address], [place] [address] May, [facility] [address] [id number] [address] [place] [address], [place] [address] May, [facility] [address] [id number] [address] [place] [address], [place] [address] May, [facility] [address] [id number] [address] [place] [address], [place] [address] May, [facility] [address] [id number] [address] [place] [address], [place] [address] May, [facility] [address] [id number] [address] [place] [address], [place] [address] May, [facility] [address] [id number] [address] [place] [address], [place] [address] May, [facility] [address] [id number] [address] [place] [address], [place] [address] May, [facility] [address] [id number] [address] [place] [address], [place] [address] May, [facility] [address] [id number] [address] [place] [address], [place] [address] May, [facility] [address] [id number] [address] [place] [address], [place] [address] May, [facility] [address] [id number] [address] [place] [address], [place] [address] May, [facility] [address] [id number] [address] [place] [address], [place] [address] Apr, [facility] [address] [id number] [address] [place] [address], [place] [address] Apr, [facility] [address] [id number] [address] [place] [address], [place] [address] Apr, [facility] [address] [id number] [address] [place] [address], [place] [address] Apr, [facility] [address] [id number] [address] [place] [address], [place] [address] Mar, [facility] [address] [id number] [address] [place] [address], [place] [address] Mar, [facility] [address] [id number] [address] [place] [address], [place] [address] Mar, [facility] [address] [id number] [address] [place] [address] Mar, [facility] [address] [id number] [address] [place] [address], [place] [address] Mar, [facility] [address] [id number] [address] [place] [address], [place] [address] Mar, [facility] [address] [id number] [address] [place] [address], [place] [address] Mar, [facility] [address] [id number] [address] [place] [address], [place] [address] 07 Mar, 2012 [facility] [address] [id number] [address] [place] [address], [place] [address] Mar, [facility] [address] [id number] [address] [place] [address], [place] [address] Mar, [facility] [address] [id number] [address] [place] [address], [place] [address] Mar, [facility] [address] [id number] [address] [place] [address], [place] [address] Mar, [facility] [address] [id number] [address] [place] [address], [place] [address] Feb, [facility] [address] [id number] [address] [place] [address], [place] [address] 18 Jan, 2013 [facility] [address] [id number] [address] [place] [address], [place] [address] 17 Jan, 2013 [facility] [address] [id number] [address] [place] [address], [place] [address] 06 Jan, 2013 [facility] [address] [id number] [address] [place] [address], [place] [address] 04 Jan, 2013 [facility] [address] [id number] [address] [place] [address], [place] [address] 03 Jan, 2013 [facility] [address] [id number] [address] [place] [address], [place] [address] 26 Dec, 2012 [facility] [address] [id number] [address] [place] [address], [place] [address] Dec, [facility] [address] [id number] [address] [place] [address], [place] [address] 18 Dec, 2012 [facility] [address] [id number] [address] [place] [address], [place] [address] 16 Dec, 2012 [facility] [address] [id number] [address] [place] [address], [place] [address] Dec, [facility] [address] [id number] [facility] [place] [address] Dec, [facility] [address] [id number] [address] [place] [address], [place] [address] Dec, [facility] [address] [id number] [facility] [place] [address] Dec, [facility] [address] [id number] [address] [place] [address], [place] [address] Nov, [facility] [address] [id number] [address] [place] [address], [place] [address] Nov, [facility] [address] [id number] [address] [place] [address], [place] [address] Nov, [facility] [address] [id number] [address] [place] [address], [place] [address] Nov, [facility] [address] [id number] [address] [place] [address], [place] [address] Nov, [facility] [address] [id number] [address] [place] [address], [place] [address] Nov, [facility] [address] [id number] [address] [place] [address], [place] [address] Oct, [facility] [address] [id number] [place] [id number] Oct, [facility] [place] [address] [id number] [place] [id number] Oct, [facility] [place] [address] [id number] [place] [id number] Oct, [facility] [place] [address] [id number] [place] [id number] Oct, [facility] [address] [id number] [address] [place] [address], [place] [address] Oct, [facility] [address] [id number] [address] [place] [address], [place] [address] Oct, [facility] [address] [id number] [address] [place] [address], [place] [address] Oct, [facility] [address] [id number] [address] [place] [address], [place] [address] Oct, [facility] [address] [id number] [address] [place] [address], [place] [address] Oct, [facility] [address] [id number] [address] [place] [address], [place] [address] Oct, [facility] [address] [id number] [address] [place] [address], [place] [address] September, [facility] [address] [id number] [address] [place] [address], [place] [address] Aug, [facility] [address] [id number] [address] [place] [address], [place] [address] Aug, [facility] [address] [id number] [address] [place] [address], [place] [address] Aug, [facility] [address] [id number] [address] [place] [address], [place] [address] Aug, [facility] [address] [id number] [address] [place] [address], [place] [address] Jul, [facility] [address] [id number] [address] [place] [address], [place] [address] Jul, [facility] [address] [id number] [address] [place] [address], [place] [address] Jul, [facility] [address] [id number] [address] [place] [address], [place] [address] Jul, [facility] [address] [id number] [address] [place] [address], [place] [address] Jul, [facility] [address] [id number] [address] [place] [address], [place] [address] Jun, [facility] [address] [id number] [address] [place] [address] 13 Jun, 2012 [facility] [address] [id number] [address] [place] [address], [place] [address] 11 Jun, 2012 [facility] [address] [id number] [address] [place] [address], [place] [address] May, [facility] [address] [id number] [address] [place] [address], [place] [address] 24 May, 2012 [facility] [address] [id number] [address] [place] [address], [place] [address] 14 May, 2012 [facility] [address] [id number] [address] [place] [address], [place] [address] May, [facility] [address] [id number] [address] [place] [address], [place] [address] May, [facility] [address] [id number] [address] [place] [address], [place] [address] May, [facility] [address] [id number] [address] [place] [address], [place] [address] 18 Apr, 2012 [facility] [address] [id number] [address] [place] [address], [place] [address] 18 Apr, 2012 [facility] [address] [id number] [address] [place] [address], [place] [address] 13 Apr, 2012 [facility] [address] [id number] [address] [place] [address], [place] [address] 13 Apr, 2012 [facility] [address] [id number] [address] [place] [address], [place] [address] 13 Apr, 2012 [facility] [address] [id number] [address] [place] [address], [place] [address] 11 Apr, 2012 [facility] [address] [id number] [address] [place] [address], [place] [address] 11 Apr, 2012 [facility] [address] [id number] [address] [place] [address], [place] [address] 12 Mar, 2012 [facility] [address] [id number] [address] [place] [address], [place] [address] Mar, [facility] [address] [id number] [address] [place] [address], [place] [address] Mar, [facility] [address] [id number] [address] [place] [address], [place] [address] Mar, [facility] [address] [id number] [address] [place] [address], [place] [address] Jan, [facility] [address] [id number] [address] [place] [address], [place] [address] Jan, [facility] [address] [id number] [address] [place] [address], [place] [address] Jan, [facility] [address] [id number] [address] [place] [address], [place] [address] Jan, [facility] [address] [id number] [place] [id number] Dec, [facility] [address] [id number] [address] [place] [address], [place] [address] Dec, [facility] [address] [id number] [place] [id number] Dec, [facility] [address] [id number] [address] [place] [address], [place] [address] Dec, [facility] [address] [id number] [address] [place] [address], [place] [address] Dec, [facility] [address] [id number] [address] [place] [address], [place] [address] Dec, [facility] [address] [id number] [address] [place] [address], [place] [address] Nov, [facility] [address] [id number] [address] [place] [address], [place] [address] Nov, [facility] [address] [id number] [address] [place] [address], [place] [address] Nov, IMMUNIZATIONS No Known Immunizations SOCIAL HISTORY [...]
--- OUTSIDE RECORDS SUMMARY | 2019-11-03 19:35 | XMS REPORT ---
Author Author Anca CHARLTON Organization [facility] Address [address] [place] [address] Care Team Providers Care Health Professor Name Role Phone LATESHA GARTH Unavailable PROBLEMS Type Condition ICD9-CM Code ZEF24-JG Code Onset Dates Condition S tatus SNOMED Code Problem Shortness of breath R06.02 Apr, 0 199803616 Problem Unspecified hypothyroidism E03.9 0 62328633 Problem Generalized anxiety disorder F41.1 Apr, 200 8 0 48280606 Problem Esophageal reflux K21.9 0 24 0830015 Problem Dyslipidemia E78.5 Oct, 0 3709 00972 Problem Osteoarthritis of right knee M17.11 May, 0 0 337999335 Problem Unspecified sleep apnea G47.30 0 94485128 Problem Morbid obesity with BMI of 50.0-59.9, adult Z68.43 Active 343837700 Problem Migraine with aura and without status migrainosu s, not intractable G43.109 Active 1079468 Problem Pulmonary embolus I26.99 13 Oct, 2011 0 95336618 Problem Morbid obesity E66.01 Active 19875 6002 Problem Nonintractable migraine G43.009 Oct, 0 779421989 Problem Hypothyroidism E03.9 Active 53669 008 Problem Renal stones N20.0 Active 4277216 7 Problem Coronary artery disease I25.10 Active 16241841 Problem Hyperlipidemia LDL goal <70 E78.5 Ac tive 37143304 ALLERGIES Substance Reaction Event Type Date Status [...] Lipitor weaknesss, dizziness, dyspnea Drug Allergy Jul, 201 9 Active Phenergan hallucinations Drug Allergy Jul, Active ENCOUNTERS Encounter Location Date Diagnosis [facility] [address] [address] Nov, [facility] [address] [place] [id number] [place] [address] Nov, UTI symptoms R39.9 and Morbi d obesity E66.01 [facility] [address] [address] Nov, [facility] [address] [address] September, [facility] [address] [address] September, [facility] [address] [address] Aug, Right foot pain M79.671 and Morbid obesity E66.01 [facility] [address] [address] Jul, Right foot pain M79.671 and Morbid obesity E66.01 [facility] [address] [place] [id number] [address] [place] [address] Jul, Injury of right foot, initia l encounter S99.921A and Morbid obesity E66.01 [facility] [address] [place] [id number] [address] [place] [address] Jul, Recurrent syncope R55 and Mo rbid obesity E66.01 [facility] [address] [place] [id number] [address] [place] [address] Jul, [facility] [address] [place] [id number] [address] [place] [address] Jun, Hematuria, unspecified type R31.9 and BMI 50.0-59.9, adult Z68.43 [facility] [address] [facility] [id number] [address] [place] [address] 07 Jun, [address] [address] Jun, 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 [facility] [address] [facility] [id number] [address] [place] [address] May, Ankle pain, right M25.571 an d BMI 50.0-59.9, adult Z68.43 [facility] [address] [facility] [id number] [address] [place] [address] May, [facility] [address] [facility] [id number] [address] [place] [address] May, [facility] [address] [facility] [id number] [address] [place] [address] Apr, [facility] [address] [facility] [id number] [address] [place] [address] Apr, [facility] [address] [facility] [id number] [address] [place] [address] Apr, [facility] [address] [facility] [id number] [address] [place] [address] Apr, BMI 50.0-59.9, adult Z68.43 and Weakness R53.1 [facility] [address] [facility] [id number] [address] [place] [address] Apr, [facility] [address] [facility] [id number] [address] [place] [address] Apr, Dysuria R30.0 ; Hematuria R3 1.9 ; Renal lithiasis N20.0 and BMI 50.0-59.9, adult Z68.43 [facility] [address] [facility] [id number] [address] [place] [address] Apr, [facility] [address] [facility] [id number] [address] [place] [address] Apr, [place] [address] [address] Apr, Hypothyroidism E03.9 [place] [address] [address] Apr, Burning with urination R30.0 ; Type 2 diabetes mellitus with diabetic neuropathic arthropathy, 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 ; Acute bilateral low back pain without sciatica M54.5 and BMI 50.0- 59.9, adult Z68.43 [place] [address] [address] Mar, Hypothyroidism E03.9 [place] [address] [address] Feb, [facility] [place] [address] [address] 15 Jan, 2018 [place] [address] [address] 07 Jan, 2018 Acute non-recurrent maxillar y sinusitis J01.00 and BMI 50.0-59.9, adult Z68.43 [facility] [place] [address] [address] 04 Jan, 2018 Congestion of upper respirat ory tract J98.8 and BMI 50.0-59.9, adult Z68.43 [place] [address] [address] Dec, Type 2 diabetes mellitus wit h diabetic neuropathic arthropathy, without long-term current use of insulin E11.610 ; Morbid obesity with BMI of 50.0-59.9, adult Z68.43 ; Hypothyroidism E03.9 ; Coronary artery disease I25.10 ; Hyperlipidemia LDL goal <70 E78.5 ; Right lower quadrant abdominal pain R10.31 and Acute cystitis with hematuria N30.01 [facility] [address] [address] Dec, Migraine with aura and witho ut status migrainosus, not intractable G43.109 ; Dehydration symptoms R63.8 and BMI 50.0-59.9, adult Z68.43 [place] [address] [address] Oct, [place] [address] [address] Oct, [place] [address] [address] Oct, [place] [address] [address] September, [place] [address] [address] September, Type 2 diabetes mellitus wit h diabetic neuropathic arthropathy, without long-term current use of insulin E11.610 ; Hyperlipidemia, unspecified hyperlipidemia type E78.5 ; Personal history of pulmonary embolism Z86.711 ; Coronary artery disease I25.10 and Hypothyroidism E03.[address] [address] September, [place] [address] [address] Aug, Type 2 diabetes mellitus wit h [...] without aura and with status migrainosus G43.011 [place] [address] [address] Aug, [address] [address] Aug, [facility] [address] [place] [id number] [address] [place] [address] Jul, Renal stones N20.0 [facility] [address] [place] [id number] [place] [address] Jun, Back pain M54.9 ; Kidney sto radha N20.0 and BMI 50.0-59.9, adult Z68.43 [facility] [address] [address] Jun, [facility] [address] [address] Apr, [place] [address] [address] Apr, [facility] [address] [address] Apr, Right foot pain M79.671 ; Ac [place] gout involving toe of right foot, 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 and Arthritis M19.90 [facility] [address] [address] 06 Apr, 2017 Gastroesophageal reflux dise ase without esophagitis K21.9 [place] [address] [place] [id number] [place] [address] 16 Mar, 2017 Hypothyroidism, unspecified E03.9 [facility] [address] [address] Feb, [place] [address] [address] 25 Jan, 2017 Cervicalgia of occipito-atla nto-axial region M54.2 and Persistent headaches R51 [facility] [address] [place] [id number] [place] [address] 20 Jan, 2017 [facility] [address] [address] 12 Jan, 2017 Intractable migraine without aura and with status migrainosus G43.011 ; Cervical spine pain M54.2 ; Hyperlipidemia, unspecified hyperlipidemia type E78.5 ; Hypothyroidism E03.9 and Metabolic syndrome E88.81 [place] [address] [address] Jan, Hypothyroidism, unspecified E03.9 [place] [address] [address] Dec, Hypothyroidism, unspecified E03.9 [place] [address] [address] Dec, Hypothyroidism E03.9 [place] [address] [address] Nov, Laceration of left great toe w/o foreign body w/o damage to nail, initial encounter S91.112A [facility] [address] [address] Oct, Pain in left knee M25.562 an d Arthritis M19.90 [place] [address] [address] Oct, Hypothyroidism, unspecified E03.9 and Hyperlipidemia, unspecified hyperlipidemia type E78.5 [place] [address] [address] Oct, Gastroesophageal reflux dise ase without esophagitis K21.9 [place] [address] [address] 14 Oct, 2016 Metabolic syndrome E88.81 ; Personal history of pulmonary embolism Z86.711 ; Other specified hypothyroidism E03.8 and Hyperlipidemia, unspecified hyperlipidemia type E78.5 [place] [address] [address] 13 Oct, 2016 Personal history of pulmonar y embolism Z86.711 ; Dysuria R30.0 ; Metabolic syndrome E88.81 ; Other specified hypothyroidism E03.8 ; Hyperlipidemia, unspecified hyperlipidemia type E78.5 and Morbid obesity with BMI of 50.0-59.9, adult Z68.[address] [address] September, [facility] [address] [address] September, Wrist pain, left M25.532 and Acute pain of left knee M25.[address] [address] Jul, Dysuria R30.[address] [address] Jul, Dysuria R30.[address] [address] Jul, Left lower quadrant pain R10 .[address] [address] Jul, [address] [address] Jul, Coronary artery disease I25. 10 ; Family history of diabetes mellitus Z83.3 ; Morbid obesity with BMI of 50.0-59.9, adult Z68.43 ; Metabolic syndrome E88.81 ; Personal history of pulmonary embolism Z86.711 ; Gastroesophageal reflux disease without esophagitis K21.9 ; Hypothyroidism, unspecified E03.9 ; Hyperlipidemia, unspecified hyperlipidemia type E78.5 and Left lower quadrant pain R10.32 [facility] [address] [address] Jul, [facility] [address] [address] Jul, Morbid obesity with BMI of 5 0.0-59.9, adult Z68.43 [facility] [address] [address] Jul, Generalized abdominal pain R 10.84 [facility] [place] [address] [place] [id number] [place] [address] Jun, Muscle strain of right upper back, initial encounter S29.012A [facility] [place] [address] [place] [id number] [address] [place] [address] May, Foreign body (FB) in soft ti ssue M79.5 [place] [address] [place] [address] Mar, Hypothyroidism, unspecified E03.9 and Arthritis M19.90 [place] [address] [address] Feb, Coronary artery disease I25. 10 ; Morbid obesity with BMI of 50.0- 59.9, adult Z68.43 ; Metabolic syndrome E88.81 ; Gastroesophageal reflux disease without esophagitis K21.9 ; Hypothyroidism, unspecified E03.9 ; Personal history of pulmonary embolism Z86.711 and Hyperlipidemia, unspecified hyperlipidemia type E78.5 [place] [address] [place] [id number] [place] [address] Feb, [facility] [place] [address] [address] Jan, Acute right-sided thoracic b ack pain M54.6 [place] [address] [place] [id number] [place] [address] Jan, Acute pain of left knee M25. 562 [place] [address] [place] [id number] [place] [address] Dec, Dysuria R30.0 ; Metabolic sy ndrome E88.81 ; Acute pain of left knee M25.562 ; Acute cystitis with hematuria N30.01 and Acute left eye pain H57.12 [place] [address] [place] [id number] [place] [address] Dec, [place] [address] [place] [address] [place] [address] Dec, [facility] [address] [id number] [address] [place] [address] Dec, Hypothyroidism, unspecified E03.9 [facility] [address] [facility] [id number] [address] [place] [address] Dec, [place] [address] [facility] [id number] [address] [place] [address] Nov, Peripheral edema R60.9 and A cute pain of left knee M25.562 [facility] [place] [address] [facility] [id number] [address] [place] [address] September, [place] [address] [facility] [id number] [address] [place] [address] September, Metabolic syndrome E88.81 an d Allergy, subsequent encounter T78.40XD [facility] [place] [address] [facility] [id number] [address] [place] [address] September, Muscle strain T14.8 [place] [address] [facility] [id number] [address] [place] [address] Aug, Chest pressure R07.89 ; [place] bolic syndrome E88.81 ; Morbid obesity with BMI of 50.0-59.9, adult Z68.43 ; Esophageal reflux 530.81 and Shortness of breath R06.02 [place] [address] [facility] [id number] [address] [place] [address] Aug, [place] [address] [facility] [id number] [address] [place] [address] Aug, [place] [address] [place] [id number] [address] [place] [address] Aug, Hypothyroidism, unspecified E03.9 [place] [address] [facility] [id number] [address] [place] [address] Aug, Routine health maintenance Z 00.00 [facility] [address] [place] [id number] [address] [place] [address] Aug, [place] [address] [address] Jul, 2016 Routine health maintenance Z 00.00 ; Family history of diabetes mellitus Z83.3 ; Family history of cancer Z80.9 and Morbid obesity with BMI of 50.0-59.9, adult Z68.43 [facility] [address] [address] Jul, Allergic rhinitis J30.9 and Postnasal drip R09.82 [place] [address] [address] Jul, Influenza J11.1 [facility] [place] [address] [address] 08 Jul, 2015 Dysuria R30.0 [place] [address] [address] Apr, [place] [address] [address] Mar, Acute upper respiratory infe ction, unspecified J06.9 and Hypothyroidism E03.9 [place] [address] [place] [id number] [place] [address] Mar, [place] [address] [place] [id number] [place] [address] Feb, Coronary artery disease I25. 10 [place] [address] [place] [id number] [place] [address] Feb, Left foot pain M79.672 [place] [id number] [address] [place] [address] Jan, UTI (urinary tract infection ) 599.0 [place] [address] [place] [id number] [place] [address] Jan, Urinary tract infection, sit e not specified 599.0 [facility] [address] [id number] [address] [place] [address] Jan, Urinary tract infection, sit e not specified 599.0 [facility] [address] [id number] [address] [place] [address] Jan, [facility] [address] [id number] [address] [place] [address] Dec, Headache 784.0 [facility] [address] [facility] [id number] [address] [place] [address] Dec, Urinary tract infection, sit e not specified 599.0 [place] [address] [id number] [address] [place] [address] Dec, Urinary tract infection, sit e not specified 599.0 [place] [address] [facility] [id number] [address] [place] [address] Dec, Urinary tract infection, sit e not specified 599.0 [place] [address] [id number] [address] [place] [address] Nov, Unspecified sleep apnea 780. 57 ; Encounter for long-term (current) use of anticoagulants V58.61 ; Routine general medical examination at health care facility V70.0 and Arthritis of both knees 716.96 [place] [address] [facility] [id number] [address] [place] [address] September, Cat bite of hand 882.0 and R ectal bleeding 569.3 [place] [address] [id number] [address] [place] [address] Aug, [place] [address] [facility] [id number] [address] [place] [address] Aug, [facility] [address] [facility] [id number] [address] [place] [address] Jul, [place] [address] [facility] [id number] [address] [place] [address] Jul, [facility] [address] [id number] [address] [place] [address], [place] [address] Jul, [facility] [place] [facility] [address] [id number] [address] [place] [address], [place] [address] Jul, [facility] [place] [facility] [address] [id number] [address] [place] [address], [place] [address] Jul, [facility] [place] [facility] [address] [id number] [address] [place] [address], [place] [address] Jul, [facility] [address] [id number] [address] [place] [address], [place] [address] Jul, [facility] [place] [facility] [address] [id number] [address] [place] [address], [place] [address] Jul, [facility] [place] [facility] [address] [id number] [address] [place] [address], [place] [address] May, [facility] [place] [facility] [address] [id number] [address] [place] [address], [place] [address] May, [facility] [place] [facility] [address] [id number] [address] [place] [address], [place] [address] May, [facility] [place] [facility] [address] [id number] [address] [place] [address], [place] [address] May, [facility] [place] [facility] [address] [id number] [address] [place] [address], [place] [address] May, [facility] [place] [facility] [address] [id number] [address] [place] [address] May, [facility] [place] [facility] [address] [id number] [address] [place] [address], [place] [address] May, [facility] [place] [facility] [address] [id number] [address] [place] [address], [place] [address] Mar, [facility] [place] [facility] [address] [id number] [address] [place] [address], [place] [address] Mar, [facility] [place] [facility] [address] [id number] [address] [place] [address] 08 Jan, 2013 [facility] [place] [facility] [address] [id number] [address] [place] [address], [place] [address] 08 Sep, 2013 [facility] [place] [facility] [address] [id number] [address] [place] [address], [place] [address] Jan, 2013 [facility] [place] [facility] [address] [id number] [address] [place] [address], [place] [address] 08 Jan, 2013 [facility] [place] [facility] [address] [id number] [address] [place] [address], [place] [address] 05 Jan, 2013 [facility] [place] [facility] [address] [id number] [address] [place] [address], [place] [address] 05 Jan, 2013 [facility] [place] [facility] [address] [id number] [address] [place] [address], [place] [address] Dec, [facility] [place] [facility] [address] [id number] [address] [place] [address], [place] [address] Dec, [facility] [place] [facility] [address] [id number] [address] [place] [address], [place] [address] Dec, [facility] [place] [facility] [address] [id number] [address] [place] [address], [place] [address] Dec, [facility] [place] [facility] [address] [id number] [address] [place] [address], [place] [address] Dec, [facility] [place] [facility] [address] [id number] [address] [place] [address], [place] [address] Dec, [facility] [place] [facility] [address] [id number] [address] [place] [address], [place] [address] Dec, [facility] [place] [facility] [address] [id number] [address] [place] [address], [place] [address] Dec, [facility] [place] [facility] [address] [id number] [address] [place] [address], [place] [address] Dec, [facility] [place] [facility] [address] [id number] [address] [place] [address], [place] [address] Dec, [facility] [place] [facility] [address] [id number] [facility] [place] [address] Nov, [facility] [address] [id number] [address] [place] [address], [place] [address] Nov, [facility] [address] [id number] [address] [place] [address], [place] [address] September, [facility] [address] [id number] [address] [place] [address], [place] [address] September, [facility] [address] [id number] [address] [place] [address], [place] [address] September, [facility] [address] [id number] [address] [place] [address], [place] [address] September, [facility] [address] [id number] [address] [place] [address], [place] [address] Aug, [facility] [address] [id number] [address] [place] [address], [place] [address] Aug, [facility] [address] [id number] [address] [place] [address], [place] [address] Aug, [facility] [address] [id number] [address] [place] [address], [place] [address] Aug, [facility] [address] [id number] [address] [place] [address], [place] [address] Aug, [facility] [address] [id number] [address] [place] [address], [place] [address] Aug, [facility] [address] [id number] [address] [place] [address], [place] [address] Aug, [facility] [address] [id number] [address] [place] [address], [place] [address] Aug, [facility] [address] [id number] [address] [place] [address], [place] [address] Aug, [facility] [address] [id number] [address] [place] [address], [place] [address] Aug, [facility] [address] [id number] [facility] [place] [address] Aug, [facility] [address] [id number] [address] [place] [address], [place] [address] Aug, [facility] [address] [id number] [address] [place] [address], [place] [address] Jul, [facility] [address] [id number] [address] [place] [address], [place] [address] Jul, [facility] [address] [id number] [address] [place] [address], [place] [address] Jul, [facility] [address] [id number] [address] [place] [address], [place] [address] Jul, [facility] [address] [id number] [address] [place] [address], [place] [address] Jul, [facility] [address] [id number] [address] [place] [address], [place] [address] Jul, [facility] [address] [id number] [address] [place] [address], [place] [address] Jul, [facility] [address] [id number] [address] [place] [address], [place] [address] Jul, [facility] [address] [id number] [address] [place] [address], [place] [address] Jul, [facility] [address] [id number] [address] [place] [address], [place] [address] Jul, [facility] [address] [id number] [address] [place] [address], [place] [address] Jun, [facility] [address] [id number] [address] [place] [address], [place] [address] Jun, [facility] [address] [id number] [address] [place], [place] [address], [place] [address] Jun, [facility] [address] [id number] [address] [place] [address], [place] [address] 17 Jun, 2013 [facility] [address] [id number] [address] [place] [address], [place] [address] Jun, [facility] [address] [id number] [address] [place] [address], [place] [address] Jun, [facility] [address] [id number] [address] [place] [address], [place] [address] Jun, [facility] [address] [id number] [address] [place] [address], [place] [address] Jun, [facility] [address] [id number] [address] [place] [address], [place] [address] Jun, [facility] [address] [id number] [address] [place] [address], [place] [address] Jun, [facility] [address] [id number] [address] [place] [address], [place] [address] Jun, [facility] [address] [id number] [address] [place] [address], [place] [address] Jun, [facility] [address] [id number] [address] [place] [address], [place] [address] May, [facility] [address] [id number] [address] [place] [address], [place] [address] May, [facility] [address] [id number] [address] [place] [address], [place] [address] May, [facility] [address] [id number] [address] [place] [address], [place] [address] May, [facility] [address] [id number] [address] [place] [address], [place] [address] May, [facility] [address] [id number] [address] [place] [address], [place] [address] May, [facility] [address] [id number] [address] [place] [address], [place] [address] May, [facility] [address] [id number] [address] [place] [address], [place] [address] May, [facility] [address] [id number] [address] [place] [address], [place] [address] May, [facility] [address] [id number] [address] [place] [address], [place] [address] May, [facility] [address] [id number] [address] [place] [address], [place] [address] May, [facility] [address] [id number] [address] [place] [address], [place] [address] May, [facility] [address] [id number] [address] [place] [address], [place] [address] May, [facility] [address] [id number] [address] [place] [address], [place] [address] May, [facility] [address] [id number] [address] [place] [address], [place] [address] May, [facility] [address] [id number] [address] [place] [address], [place] [address] Apr, [facility] [address] [id number] [address] [place] [address], [place] [address] Apr, [facility] [address] [id number] [address] [place] [address], [place] [address] Apr, [facility] [address] [id number] [address] [place] [address], [place] [address] Apr, [facility] [address] [id number] [address] [place] [address], [place] [address] Mar, [facility] [address] [id number] [address] [place] [address], [place] [address] Mar, [facility] [address] [id number] [address] [place] [address], [place] [address] Mar, [facility] [address] [id number] [address] [place] [address], [place] [address] Mar, [facility] [address] [id number] [address] [place] [address], [place] [address] Mar, [facility] [address] [id number] [address] [place] [address], [place] [address] Mar, [facility] [address] [id number] [address] [place] [address], [place] [address] Mar, [facility] [address] [id number] [address] [place] [address], [place] [address] Mar, [facility] [address] [id number] [address] [place] [address], [place] [address] Mar, [facility] [address] [id number] [address] [place] [address], [place] [address] Mar, [facility] [address] [id number] [address] [place] [address], [place] [address] Mar, [facility] [address] [id number] [address] [place] [address], [place] [address] Mar, [facility] [address] [id number] [address] [place] [address], [place] [address] Feb, [facility] [address] [id number] [address] [place] [address], [place] [address] 18 Jan, 2013 [facility] [address] [id number] [address] [place] [address], [place] [address] 17 Jan, 2012 [facility] [address] [id number] [address] [place] [address], [place] [address] 06 Sep, 2012 [facility] [address] [id number] [address] [place] [address], [place] [address] 04 Jan, 2012 [facility] [address] [id number] [address] [place] [address], [place] [address] 03 Jan, 2013 [facility] [address] [id number] [address] [place] [address], [place] [address] Dec, [facility] [address] [id number] [address] [place] [address], [place] [address] Dec, [facility] [address] [id number] [address] [place] [address], [place] [address] Dec, [facility] [address] [id number] [address] [place] [address], [place] [address] Dec, [facility] [address] [id number] [address] [place] [address], [place] [address] Dec, [facility] [address] [id number] [address] [place] [address], [place] [address] Dec, [facility] [address] [id number] [address] [place] [address], [place] [address] Dec, [facility] [address] [id number] [address] [place] [address], [place] [address] Dec, [facility] [address] [id number] [address] [place] [address], [place] [address] Nov, [facility] [address] [id number] [address] [place] [address], [place] [address] Nov, [facility] [address] [id number] [address] [place] [address], [place] [address] Nov, [facility] [address] [id number] [address] [place] [address], [place] [address] Nov, [facility] [address] [id number] [address] [place] [address], [place] [address] Nov, [facility] [address] [id number] [address] [place] [address], [place] [address] Nov, [facility] [address] [id number] [address] [place] [address], [place] [address] Oct, [facility] [address] [id number] [place] [id number] Oct, [facility] [address] [id number] [place] [id number] Oct, [facility] [address] [id number] [place] [id number] Oct, [facility] [address] [id number] [place] [id number] Oct, [facility] [address] [id number] [address] [place] [address], [place] [address] Oct, [facility] [address] [id number] [address] [place] [address], [place] [address] Oct, [facility] [address] [id number] [address] [place] [address], [place] [address] Oct, [facility] [address] [id number] [address] [place] [address], [place] [address] Oct, [facility] [address] [id number] [address] [place] [address], [place] [address] Oct, [facility] [address] [id number] [address] [place] [address], [place] [address] Oct, [facility] [address] [id number] [address] [place] [address], [place] [address] September, [facility] [address] [id number] [address] [place] [address], [place] [address] Aug, [facility] [address] [id number] [address] [place] [address], [place] [address] Aug, [facility] [address] [id number] [address] [place] [address], [place] [address] Aug, [facility] [address] [id number] [address] [place] [address], [place] [address] Aug, [facility] [address] [id number] [address] [place] [address], [place] [address] Jul, [facility] [address] [id number] [address] [place] [address], [place] [address] Jul, [facility] [address] [id number] [address] [place] [address], [place] [address] Jul, [facility] [address] [id number] [address] [place] [address], [place] [address] 05 Jul, 2012 [facility] [address] [id number] [address] [place] [address], [place] [address] 04 Jul, 2012 [facility] [address] [id number] [address] [place] [address], [place] [address] 19 Jun, 2012 [facility] [address] [id number] [address] [place] [address], [place] [address] 13 Jun, 2012 [facility] [address] [id number] [address] [place] [address], [place] [address] Jun, [facility] [address] [id number] [address] [place] [address], [place] [address] May, [facility] [address] [id number] [address] [place] [address], [place] [address] May, [facility] [address] [id number] [address] [place] [address], [place] [address] May, [facility] [address] [id number] [address] [place] [address], [place] [address] May, [facility] [address] [id number] [address] [place] [address], [place] [address] May, [facility] [address] [id number] [address] [place] [address], [place] [address] May, [facility] [address] [id number] [address] [place] [address], [place] [address] 18 Apr, 2012 [facility] [address] [id number] [address] [place] [address], [place] [address] 18 Apr, 2012 [facility] [address] [id number] [address] [place] [address], [place] [address] 13 Apr, 2012 [facility] [address] [id number] [address] [place] [address], [place] [address] 13 Apr, 2012 [facility] [address] [id number] [address] [place] [address], [place] [address] 13 Apr, 2012 [facility] [address] [id number] [address] [place] [address], [place] [address] Apr, [facility] [address] [id number] [address] [place] [address], [place] [address] Apr, [facility] [address] [id number] [address] [place] [address], [place] [address] Mar, [facility] [address] [id number] [address] [place] [address], [place] [address] Mar, [facility] [address] [id number] [address] [place] [address], [place] [address] Mar, [facility] [address] [id number] [address] [place] [address], [place] [address] Mar, [facility] [address] [id number] [address] [place] [address], [place] [address] 18 Jan, 2012 [facility] [address] [id number] [address] [place] [address], [place] [address] 10 Jan, 2012 [facility] [address] [id number] [address] [place] [address], [place] [address] 06 Jan, 2012 [facility] [address] [id number] [address] [place] [address], [place] [address] 06 Jan, 2012 [facility] [address] [id number] [place] [id number] Dec, [facility] [address] [id number] [address] [place] [address], [place] [address] Dec, [facility] [address] [id number] [place] [id number] Dec, [facility] [address] [id number] [address] [place] [address], [place] [address] Dec, [facility] [address] [id number] [address] [place] [address], [place] [address] Dec, [facility] [address] [facility] [id number] [address] [place] [address] Dec, [facility] [address] [facility] [id number] [address] [place] [address] Nov, [facility] [address] [facility] [id number] [address] [place] [address] Nov, [facility] [address] [facility] [id number] [address] [place] [address] Nov, IMMUNIZATIONS No Known Immunizations SOCIAL HISTORY Never Assessed REASON FOR VISIT foot pain. Right foot pain. T.V. table fell on foot. Happened five days ago. -BASIL quintana MA PLAN OF CARE Activity Details Follow Up prn Reason: VITAL SIGNS Height 64 in 2018-07-20 Weight 303 lbs 2018-07-20 Temperature 97.2 degrees Fahrenheit 2018-07-20 Heart Rate 80 bpm 2018-07-20 Respiratory Rate 20 2018-07-20 BMI 52 kg/m2 2018-07-20 Blood pressure systolic 132 mmHg 2018-07-20 Blood pressure diastolic 80 mmHg 2018-07-20 MEDICATIONS Medication Instructions Dosage Frequency Start Date End Date Duration S tatus Levothyroxine Sodium 150 MCG TAKE ONE TA BLET BY MOUTH ONCE DAILY IN THE MORNING ON AN EMPTY STOMACH 30 days Active Hydrocodone-Acetaminophen 5-325 MG Orally every 6 hrs 1 tablet as n eeded 6h Apr, Active Aspirin Adult Low Dose 81 MG Orally Once a day 1 tablet 24h Active Plavix 75 MG Orally Once a day 1 tablet 24h Active Tylenol Extra Strength 500 MG Nov, Active Albuterol Sulfate 90 mcg/actuation Inhalation every 4 hrs in raman 1 puff by inhalation route every 4 hours as needed 4h Jun, 30 days Active Nitroglycerin 0.4 MG/HR Transdermal Once a day 1 patch to sk in remove after 12 hours 24h Active Albuterol Sulfate 2.5 mg /3 mL (0.083 %) 1 Each by Inhalation route every 4 hours for cough and wheezePRNfor wheezing or cough Nov, Active Pravastatin Sodium 20 MG Orally Once a day 1 tablet 24h Active Omeprazole 20 MG TAKE ONE CAPSULE BY MOUTH ONCE DAILY 30 Active RESULTS Name Result Date Reference Range Xray : Foot, Right 3 views (IN HOUSE) 2018-07-20 PROCEDURES Procedure Date Ordered Result Body Site [facility] VISIT ESTABLISHED PATIENT July 20, 2018 X-RAY EXAM OF FOOT July 20, 2018 INSTRUCTIONS MEDICATIONS ADMINISTERED No Known Medications [...] Stent placed 08/19/2017 Hospitalization History Syncope- [facility] 12/2017 Hospitalization History heart cath ( 06/23/18-06/25/2018)
--- OUTSIDE RECORDS SUMMARY | 2019-11-03 19:35 | XMS REPORT ---
Author Author Anca Lucero Doctor Organization [facility] Address Unknown Phone Unavailable Care Team Providers Care [employer] Name Role Phone Migration, Doctor Unavailable Unavailable PROBLEMS Type Condition ICD9-CM Code [id number] Code Onset Dates Condition S tatus SNOMED Code Problem Shortness of breath R06.02 Apr, 0 759105903 Problem Unspecified hypothyroidism E03.9 0 00011494 Problem Generalized anxiety disorder F41.1 Apr, 200 8 0 21229674 Problem Esophageal reflux K21.9 0 24 3242966 Problem Dyslipidemia E78.5 12 Oct, 2017 0 3709 90679 Problem Osteoarthritis of right knee M17.11 May, 0 0 636012348 Problem Unspecified sleep apnea G47.30 0 94662508 Problem Morbid obesity with BMI of 50.0-59.9, adult Z68.43 Active 499109371 Problem Migraine with aura and without status migrainosu s, not intractable G43.109 Active 8239659 Problem Pulmonary embolus I26.99 13 Oct, 2011 0 15432728 Problem Morbid obesity E66.01 Active 66531 6002 Problem Nonintractable migraine G43.009 08 Oct, 2015 0 786398416 Problem Hypothyroidism E03.9 Active 59610 008 Problem Renal stones N20.0 Active 7652552 7 Problem Coronary artery disease I25.10 Active 65744458 Problem Hyperlipidemia LDL goal <70 E78.5 Ac tive [id number] ALLERGIES No Information ENCOUNTERS Encounter Location Date Diagnosis [address] [address] Nov, Other microscopic hematuria R31.29 [facility] [address] [facility] [id number] [address] [place] [address] Nov, Vaginal gena B37.3 ; Othe r microscopic hematuria R31.29 and Morbid obesity E66.01 [facility] [address] [facility] [id number] [address] [place] [address] Nov, [facility] [address] [facility] [id number] [address] [place] [address] Nov, [facility] [address] [facility] [id number] [address] [place] [address] Nov, UTI symptoms R39.9 and Morbi d obesity E66.01 [facility] [address] [facility] [id number] [address] [place] [address] Nov, [facility] [address] [facility] [id number] [address] [place] [address] September, [facility] [address] [facility] [id number] [place] [address] September, [facility] [address] [place] [id number] [place] [address] Aug, Right foot pain M79.671 and Morbid obesity E66.01 [facility] [address] [place] [id number] [address] [place] [address] Jul, Right foot pain M79.671 and Morbid obesity E66.01 [facility] [address] [place] [id number] [place] [address] Jul, Injury of right foot, initia l encounter S99.921A and Morbid obesity E66.01 [facility] [address] [place] [id number] [address] [place] [address] Jul, Recurrent syncope R55 and Mo rbid obesity E66.01 [facility] [address] [facility] [id number] [address] [place] [address] Jul, [facility] [address] [place] [id number] [place] [address] Jun, Hematuria, unspecified type R31.9 and BMI 50.0-59.9, adult Z68.43 [facility] [address] [place] [id number] [address] [place] [address] Jun, [facility] [address] Jun, half-way current use of anticoagulant Z 79.01 [facility] [address] [facility] [id number] [address] [place] [address] May, Ankle pain, right M25.571 an d BMI 50.0-59.9, adult Z68.43 [facility] [address] [place] [id number] [address] [place] [address] May, [facility] [address] [place] [id number] [place] [address] May, [facility] [address] [address] Apr, [facility] [address] [place] [id number] [address] [place] [address] Apr, [facility] [address] [place] [id number] [place] [address] Apr, [facility] [address] [facility] [id number] [address] [place] [address] Apr, BMI 50.0-59.9, adult Z68.43 and Weakness R53.1 [facility] [address] [place] [id number] [address] [place] [address] Apr, [facility] [address] [place] [id number] [address] [place] [address] Apr, Dysuria R30.0 ; Hematuria R3 1.9 ; Renal lithiasis N20.0 and BMI 50.0-59.9, adult Z68.43 [facility] [address] [place] [id number] [address] [place] [address] Apr, [facility] [address] [place] [id number] [place] [address] Apr, [facility] [address] [place] [id number] [place] [address] Apr, Hypothyroidism E03.9 [place] [address] [address] 04 Apr, 2018 Burning with urination R30.0 ; Type 2 diabetes mellitus with diabetic neuropathic arthropathy, without long-term current use of insulin E11.610 ; Acute bilateral low back pain without sciatica M54.5 and BMI 50.0- 59.9, adult Z68.43 [place] [address] [address] 02 Mar, 2018 Hypothyroidism E03.9 [place] [address] [address] Feb, [facility] [place] [address] [address] 15 Jan, 2018 [place] [address] [address] 07 Jan, 2018 Acute non-recurrent maxillar y sinusitis J01.00 and BMI 50.0-59.9, adult Z68.43 [facility] [place] [address] [address] 04 Jan, 2018 Congestion of upper respirat ory tract J98.8 and BMI 50.0-59.9, adult Z68.43 [place] [address] [address] Dec, Type 2 diabetes mellitus wit h diabetic neuropathic arthropathy, without long-term current use of insulin E11.610 ; Morbid obesity with BMI of 50.0-59.9, adult Z68.43 ; Hypothyroidism E03.9 ; Coronary artery disease I25.10 ; Hyperlipidemia LDL goal <70 E78.5 ; Right lower quadrant abdominal pain R10.31 and Acute cystitis with hematuria N30.01 [facility] [place] [address] [address] 06 Dec, 2017 Migraine with aura and witho ut status migrainosus, not intractable G43.109 ; Dehydration symptoms R63.8 and BMI 50.0-59.9, adult Z68.43 [place] [address] [address] Oct, [place] [address] [address] Oct, [place] [address] [address] Oct, [place] [address] [address] September, [place] [address] [address] September, Type 2 diabetes mellitus wit h diabetic neuropathic arthropathy, without long-term current use of insulin E11.610 ; Hyperlipidemia, unspecified hyperlipidemia type E78.5 ; Personal history of pulmonary embolism Z86.711 ; Coronary artery disease I25.10 and Hypothyroidism E03.[address] [address] September, [place] [address] [address] Aug, Type 2 diabetes mellitus wit h [...] without aura and with status migrainosus G43.011 [place] [address] [address] Aug, [place] [address] [address] Aug, [place] [address] [address] Jul, Renal stones N20.0 [facility] [address] [address] 19 Jun, 2017 Back pain M54.9 ; Kidney sto radha N20.0 and BMI 50.0-59.9, adult Z68.43 [facility] [address] [address] Jun, [facility] [address] [address] Apr, [place] [address] [address] Apr, [place] [address] [address] Apr, Right foot pain M79.671 ; Ac modoc gout involving toe of right foot, 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 and Arthritis M19.90 [place] [address] [address] 06 Apr, 2017 Gastroesophageal reflux dise ase without esophagitis K21.9 [place] [address] [address] Mar, Hypothyroidism, unspecified E03.9 [place] [address] [address] Feb, [place] [address] [address] 25 Jan, 2017 Cervicalgia of occipito-atla nto-axial region M54.2 and Persistent headaches R51 [place] [address] [address] 20 Jan, 2017 [place] [address] [address] 12 Jan, 2017 Intractable migraine without aura and with status migrainosus G43.011 ; Cervical spine pain M54.2 ; Hyperlipidemia, unspecified hyperlipidemia type E78.5 ; Hypothyroidism E03.9 and Metabolic syndrome E88.81 [place] [address] [address] Jan, Hypothyroidism, unspecified E03.9 [place] [address] [address] Dec, Hypothyroidism, unspecified E03.9 [place] [address] [address] Dec, Hypothyroidism E03.9 [place] [address] [address] Nov, Laceration of left great toe w/o foreign body w/o damage to nail, initial encounter S91.112A [facility] [address] [address] Oct, Pain in left knee M25.562 an d Arthritis M19.90 [place] [address] [address] Oct, Hypothyroidism, unspecified E03.9 and Hyperlipidemia, unspecified hyperlipidemia type E78.5 [place] [address] [address] 22 Oct, 2016 Gastroesophageal reflux dise ase without esophagitis K21.9 [place] [address] [address] 14 Oct, 2016 Metabolic syndrome E88.81 ; Personal history of pulmonary embolism Z86.711 ; Other specified hypothyroidism E03.8 and Hyperlipidemia, unspecified hyperlipidemia type E78.5 [place] [address] [address] 13 Oct, 2016 Personal history of pulmonar y embolism Z86.711 ; Dysuria R30.0 ; Metabolic syndrome E88.81 ; Other specified hypothyroidism E03.8 ; Hyperlipidemia, unspecified hyperlipidemia type E78.5 and Morbid obesity with BMI of 50.0-59.9, adult Z68.43 [place] [address] [place] [address] [place] [address] September, [facility] [address] [address] September, Wrist pain, left M25.532 and Acute pain of left knee M25.562 [place] [address] [address] Jul, Dysuria R30.0 [place] [address] [address] Jul, Dysuria R30.0 [place] [address] [address] Jul, Left lower quadrant pain R10 .32 [place] [address] [address] Jul, [place] [address] [address] Jul, Coronary artery disease I25. 10 ; Family history of diabetes mellitus Z83.3 ; Morbid obesity with BMI of 50.0-59.9, adult Z68.43 ; Metabolic syndrome E88.81 ; Personal history of pulmonary embolism Z86.711 ; Gastroesophageal reflux disease without esophagitis K21.9 ; Hypothyroidism, unspecified E03.9 ; Hyperlipidemia, unspecified hyperlipidemia type E78.5 and Left lower quadrant pain R10.32 [facility] [address] [address] Jul, [facility] [address] [address] Jul, Morbid obesity with BMI of 5 0.0-59.9, adult Z68.43 [facility] [address] [address] Jul, Generalized abdominal pain R 10.84 [facility] [address] [address] Jun, Muscle strain of right upper back, initial encounter S29.012A [facility] [address] [address] May, Foreign body (FB) in soft ti ssue M79.5 [place] [address] [place] [id number] [place] [address] Mar, Hypothyroidism, unspecified E03.9 and Arthritis M19.90 [place] [address] [address] Feb, Coronary artery disease I25. 10 ; Morbid obesity with BMI of 50.0- 59.9, adult Z68.43 ; Metabolic syndrome E88.81 ; Gastroesophageal reflux disease without esophagitis K21.9 ; Hypothyroidism, unspecified E03.9 ; Personal history of pulmonary embolism Z86.711 and Hyperlipidemia, unspecified hyperlipidemia type E78.5 [place] [address] [address] Feb, [facility] [address] [address] Jan, Acute right-sided thoracic b ack pain M54.6 [place] [address] [address] Jan, Acute pain of left knee M25. 562 [place] [address] [address] Dec, Dysuria R30.0 ; Metabolic sy ndrome E88.81 ; Acute pain of left knee M25.562 ; Acute cystitis with hematuria N30.01 and Acute left eye pain H57.12 [place] [address] [address] Dec, [place] [address] [address] Dec, [place] [address] [address] Dec, Hypothyroidism, unspecified E03.9 [place] [address] [id number] [address] [place] [address] Dec, [place] [address] [facility] [id number] [address] [place] [address] Nov, Peripheral edema R60.9 and A cute pain of left knee M25.562 [facility] [place] [address] [facility] [id number] [address] [place] [address] September, [place] [address] [facility] [id number] [address] [place] [address] September, Metabolic syndrome E88.81 an d Allergy, subsequent encounter T78.40XD [facility] [place] [address] [place] [id number] [place] [address] September, Muscle strain T14.8 [place] [address] [facility] [id number] [address] [place] [address] Aug, Chest pressure R07.89 ; Afton bolic syndrome E88.81 ; Morbid obesity with BMI of 50.0-59.9, adult Z68.43 ; Esophageal reflux 530.81 and Shortness of breath R06.02 [place] [address] [facility] [id number] [address] [place] [address] Aug, [place] [address] [facility] [id number] [address] [place] [address] Aug, [place] [address] [facility] [id number] [address] [place] [address] Aug, Hypothyroidism, unspecified E03.9 [place] [address] [facility] [id number] [address] [place] [address] Aug, Routine health maintenance Z 00.00 [facility] [place] [address] [facility] [id number] [address] [place] [address] Aug, [place] [address] [place] [id number] [place] [address] 31 Jul, 2016 Routine health maintenance Z 00.00 ; Family history of diabetes mellitus Z83.3 ; Family history of cancer Z80.9 and Morbid obesity with BMI of 50.0-59.9, adult Z68.43 [facility] [address] [place] [id number] [place] [address] 28 Jul, 2015 Allergic rhinitis J30.9 and Postnasal drip R09.82 [place] [address] [place] [id number] [place] [address] 18 Jul, 2015 Influenza J11.1 [facility] [place] [address] [address] 08 Jul, 2015 Dysuria R30.0 [place] [address] [place] [id number] [place] [address] Apr, [place] [address] [address] Mar, Acute upper respiratory infe ction, unspecified J06.9 and Hypothyroidism E03.9 [place] [address] [place] [id number] [place] [address] Mar, [place] [address] [place] [id number] [address] [place] [address] Feb, Coronary artery disease I25. 10 [place] [address] [place] [id number] [place] [address] Feb, Left foot pain M79.672 [place] [address] [place] [id number] [place] [address] Jan, UTI (urinary tract infection ) 599.0 [place] [address] [place] [id number] [place] [address] Jan, Urinary tract infection, sit e not specified 599.0 [place] [address] [place] [id number] [place] [address] Jan, Urinary tract infection, sit e not specified 599.0 [facility] [address] [facility] [id number] [address] [place] [address] Jan, [facility] [address] [facility] [id number] [address] [place] [address] Dec, Headache 784.0 [facility] [address] [facility] [id number] [address] [place] [address] Dec, Urinary tract infection, sit e not specified 599.0 [facility] [address] [id number] [address] [place] [address] Dec, Urinary tract infection, sit e not specified 599.0 [place] [address] [place] [id number] [place] [address] Dec, Urinary tract infection, sit e not specified 599.0 [place] [address] [place] [id number] [place] [address] Nov, Unspecified sleep apnea 780. 57 ; Encounter for long-term (current) use of anticoagulants V58.61 ; Routine general medical examination at health care facility V70.0 and Arthritis of both knees 716.96 [place] [address] [place] [id number] [place] [address] September, Cat bite of hand 882.0 and R ectal bleeding 569.3 [place] [address] [place] [id number] [place] [address] Aug, [facility] [address] [place] [id number] [place] [address] Aug, [facility] [address] [place] [id number] [place] [address] Jul, [facility] [address] [place] [id number] [place] [address] Jul, [facility] [address] [place] [id number] [place] [address] Jul, [facility] [place] [facility] [address] [id number] [address] [place] [address], [place] [address] Jul, [facility] [address] [id number] [address] [place] [address], [place] [address] Jul, [facility] [place] [facility] [address] [id number] [address] [place] [address], [place] [address] Jul, [facility] [place] [facility] [address] [id number] [address] [place] [address], [place] [address] Jul, [facility] [place] [facility] [address] [id number] [address] [place] [address], [place] [address] Jul, [facility] [place] [facility] [address] [id number] [address] [place] [address], [place] [address] May, [facility] [address] [id number] [address] [place] [address], [place] [address] May, [facility] [address] [id number] [address] [place] [address], [place] [address] May, [facility] [address] [id number] [address] [place] [address], [place] [address] May, [facility] [address] [id number] [address] [place] [address], [place] [address] May, [facility] [address] [id number] [address] [place] [address], [place] [address] May, [facility] [address] [id number] [address] [place] [address], [place] [address] May, [facility] [place] [facility] [address] [id number] [address] [place] [address], [place] [address] Mar, [facility] [place] [facility] [address] [id number] [address] [place] [address], [place] [address] Mar, [facility] [place] [facility] [address] [id number] [address] [place] [address], [place] [address] 08 Jan, 2014 [facility] [place] [facility] [address] [id number] [address] [place] [address], [place] [address] Jan, [facility] [place] [facility] [address] [id number] [facility] [place] [address] Jan, 2013 [facility] [place] [facility] [address] [id number] [address] [place] [address], [place] [address] Jan, [facility] [place] [facility] [address] [id number] [address] [place] [address], [place] [address] Jan, 2013 [facility] [place] [facility] [address] [id number] [address] [place] [address], [place] [address] Jan, [facility] [place] [facility] [address] [id number] [address] [place] [address], [place] [address] Dec, [facility] [place] [facility] [address] [id number] [address] [place] [address], [place] [address] Dec, [facility] [place] [facility] [address] [id number] [address] [place] [address], [place] [address] Dec, [facility] [place] [facility] [address] [id number] [address] [place] [address], [place] [address] Dec, [facility] [place] [facility] [address] [id number] [address] [place] [address], [place] [address] Dec, [facility] [place] [facility] [address] [id number] [address] [place] [address], [place] [address] Dec, [facility] [place] [facility] [address] [id number] [address] [place] [address], [place] [address] Dec, [facility] [place] [address] [id number] [address] [place] [address], [place] [address] Dec, [facility] [place] [facility] [address] [id number] [address] [place] [address], [place] [address] Dec, [facility] [place] [facility] [address] [id number] [address] [place] [address], [place] [address] Dec, [facility] [place] [facility] [address] [id number] [address] [place] [address], [place] [address] Nov, [facility] [place] [facility] [address] [id number] [address] [place] [address] Nov, [facility] [address] [id number] [address] [place] [address], [place] [address] September, [facility] [address] [id number] [address] [place] [address], [place] [address] September, [facility] [address] [id number] [address] [place] [address], [place] [address] September, [facility] [address] [id number] [address] [place] [address], [place] [address] September, [facility] [address] [id number] [address] [place] [address], [place] [address] Aug, [facility] [address] [id number] [address] [place] [address], [place] [address] Aug, [facility] [address] [id number] [address] [place] [address], [place] [address] Aug, [facility] [address] [id number] [address] [place] [address], [place] [address] Aug, [facility] [address] [id number] [address] [place] [address], [place] [address] Aug, [facility] [address] [id number] [address] [place] [address], [place] [address] Aug, [facility] [address] [id number] [address] [place] [address], [place] [address] Aug, [facility] [address] [id number] [address] [place] [address], [place] [address] Aug, [facility] [address] [id number] [address] [place] [address], [place] [address] Aug, [facility] [address] [id number] [address] [place] [address], [place] [address] Aug, [facility] [address] [id number] [address] [place] [address], [place] [address] Aug, [facility] [address] [id number] [address] [place] [address], [place] [address] Aug, [facility] [address] [id number] [address] [place] [address], [place] [address] Jul, [facility] [address] [id number] [address] [place] [address], [place] [address] Jul, [facility] [address] [id number] [address] [place] [address], [place] [address] Jul, [facility] [address] [id number] [address] [place] [address], [place] [address] Jul, [facility] [address] [id number] [address] [place] [address], [place] [address] Jul, [facility] [address] [id number] [address] [place] [address], [place] [address] Jul, [facility] [address] [id number] [address] [place] [address], [place] [address] Jul, [facility] [address] [id number] [address] [place] [address], [place] [address] Jul, [facility] [address] [id number] [address] [place] [address], [place] [address] Jul, [facility] [address] [id number] [address] [place] [address], [place] [address] Jul, [facility] [address] [id number] [address] [place] [address], [place] [address] Jun, [facility] [address] [id number] [address] [place] [address], [place] [address] Jun, [facility] [address] [id number] [address] [place] [address], [place] [address] Jun, [facility] [address] [id number] [address] [place] [address], [place] [address] Jun, [facility] [address] [id number] [address] [place] [address], [place] [address] Jun, [facility] [address] [id number] [address] [place] [address], [place] [address] Jun, [facility] [address] [id number] [address] [place] [address], [place] [address] Jun, [facility] [address] [id number] [address] [place] [address], [place] [address] Jun, [facility] [address] [id number] [address] [place] [address], [place] [address] Jun, [facility] [address] [id number] [address] [place] [address], [place] [address] Jun, [facility] [address] [id number] [address] [place] [address], [place] [address] Jun, [facility] [address] [id number] [address] [place] [address], [place] [address] Jun, [facility] [address] [id number] [address] [place] [address], [place] [address] May, [facility] [address] [id number] [address] [place] [address], [place] [address] May, [facility] [address] [id number] [address] [place] [address], [place] [address] May, [facility] [address] [id number] [address] [place] [address], [place] [address] May, [facility] [address] [id number] [address] [place] [address], [place] [address] May, [facility] [address] [id number] [address] [place] [address], [place] [address] May, [facility] [address] [id number] [address] [place] [address], [place] [address] May, [facility] [address] [id number] [address] [place] [address], [place] [address] May, [facility] [address] [id number] [address] [place] [address], [place] [address] May, [facility] [address] [id number] [address] [place] [address], [place] [address] May, [facility] [address] [id number] [address] [place] [address], [place] [address] May, [facility] [address] [id number] [address] [place] [address], [place] [address] May, [facility] [address] [id number] [address] [place] [address], [place] [address] May, [facility] [address] [id number] [address] [place] [address], [place] [address] May, [facility] [address] [id number] [address] [place] [address], [place] [address] May, [facility] [address] [id number] [address] [place] [address], [place] [address] Apr, [facility] [address] [id number] [address] [place] [address], [place] [address] Apr, [facility] [address] [id number] [address] [place] [address], [place] [address] Apr, [facility] [address] [id number] [address] [place] [address], [place] [address] Apr, [facility] [address] [id number] [address] [place] [address], [place] [address] Mar, [facility] [address] [id number] [address] [place] [address], [place] [address] Mar, [facility] [address] [id number] [address] [place] [address], [place] [address] Mar, [facility] [address] [id number] [address] [place] [address], [place] [address] Mar, [facility] [address] [id number] [address] [place] [address] [place] [address] Mar, [facility] [address] [id number] [address] [place] [address], [place] [address] Mar, [facility] [address] [id number] [address] [place] [address], [place] [address] Mar, [facility] [address] [id number] [address] [place] [address], [place] [address] Mar, [facility] [address] [id number] [address] [place] [address], [place] [address] Mar, [facility] [address] [id number] [address] [place] [address], [place] [address] Mar, [facility] [address] [id number] [address] [place] [address], [place] [address] Mar, [facility] [address] [id number] [address] [place] [address], [place] [address] Mar, [facility] [address] [id number] [address] [place] [address], [place] [address] Feb, [facility] [address] [id number] [address] [place] [address], [place] [address] 18 Jan, 2013 [facility] [address] [id number] [address] [place] [address], [place] [address] 17 Jan, 2012 [facility] [address] [id number] [address] [place] [address], [place] [address] 06 Jan, 2012 [facility] [address] [id number] [address] [place] [address], [place] [address] 04 Jan, 2012 [facility] [address] [id number] [address] [place] [address], [place] [address] 03 Jan, 2012 [facility] [address] [id number] [address] [place] [address], [place] [address] Dec, [facility] [address] [id number] [address] [place] [address], [place] [address] Dec, [facility] [address] [id number] [facility] [place] [address] Dec, [facility] [address] [id number] [address] [place] [address], [place] [address] Dec, [facility] [address] [id number] [address] [place] [address], [place] [address] Dec, [facility] [address] [id number] [address] [place] [address], [place] [address] Dec, [facility] [address] [id number] [address] [place] [address], [place] [address] Dec, [facility] [address] [id number] [address] [place] [address], [place] [address] Dec, [facility] [address] [id number] [address] [place] [address], [place] [address] Nov, [facility] [address] [id number] [address] [place] [address], [place] [address] Nov, [facility] [address] [id number] [address] [place] [address], [place] [address] Nov, [facility] [address] [id number] [address] [place] [address], [place] [address] Nov, [facility] [address] [id number] [address] [place] [address], [place] [address] Nov, [facility] [address] [id number] [address] [place] [address], [place] [address] Nov, [facility] [address] [id number] [address] [place] [address], [place] [address] Oct, [facility] [place] [address] [id number] [place] [id number] Oct, [facility] [place] [address] [id number] [place] [id number] Oct, [facility] [place] [address] [id number] [place] [id number] Oct, [facility] [place] [address] [id number] [place] [id number] 20 Oct, 2012 [facility] [address] [id number] [address] [place] [address], [place] [address] Oct, [facility] [address] [id number] [address] [place] [address], [place] [address] Oct, [facility] [address] [id number] [address] [place] [address], [place] [address] Oct, [facility] [address] [id number] [address] [place] [address], [place] [address] Oct, [facility] [address] [id number] [address] [place] [address], [place] [address] Oct, [facility] [address] [id number] [address] [place] [address], [place] [address] Oct, [facility] [address] [id number] [address] [place] [address], [place] [address] September, [facility] [address] [id number] [address] [place] [address], [place] [address] Aug, [facility] [address] [id number] [address] [place] [address], [place] [address] Aug, [facility] [address] [id number] [address] [place] [address], [place] [address] Aug, [facility] [address] [id number] [address] [place] [address], [place] [address] Aug, [facility] [address] [id number] [address] [place] [address], [place] [address] 24 Jul, 2012 [facility] [address] [id number] [address] [place] [address], [place] [address] Jul, [facility] [address] [id number] [address] [place] [address], [place] [address] Jul, [facility] [address] [id number] [address] [place] [address], [place] [address] 05 Jul, 2012 [facility] [address] [id number] [address] [place] [address], [place] [address] 04 Jul, 2012 [facility] [address] [id number] [address] [place] [address], [place] [address] 19 Jun, 2012 [facility] [address] [id number] [address] [place] [address], [place] [address] 13 Jun, 2012 [facility] [address] [id number] [address] [place] [address], [place] [address] 11 Jun, 2012 [facility] [address] [id number] [address] [place] [address], [place] [address] May, [facility] [address] [id number] [address] [place] [address], [place] [address] 24 May, 2012 [facility] [address] [id number] [address] [place] [address], [place] [address] 14 May, 2012 [facility] [address] [id number] [address] [place] [address], [place] [address] May, [facility] [address] [id number] [address] [place] [address], [place] [address] May, [facility] [address] [id number] [address] [place] [address], [place] [address] 04 May, 2012 [facility] [address] [id number] [address] [place] [address], [place] [address] 18 Apr, 2012 [facility] [address] [id number] [address] [place] [address], [place] [address] 18 Apr, 2012 [facility] [address] [id number] [address] [place] [address], [place] [address] 13 Apr, 2012 [facility] [address] [id number] [address] [place] [address], [place] [address] 13 Apr, 2012 [facility] [address] [id number] [address] [place] [address], [place] [address] 13 Apr, 2012 [facility] [address] [id number] [address] [place] [address], [place] [address] Apr, [facility] [address] [id number] [address] [place] [address], [place] [address] Apr, [facility] [address] [id number] [address] [place] [address], [place] [address] Mar, [facility] [address] [id number] [address] [place] [address], [place] [address] Mar, [facility] [address] [id number] [address] [place] [address], [place] [address] Mar, [facility] [address] [id number] [address] [place] [address], [place] [address] Mar, [facility] [address] [id number] [address] [place] [address], [place] [address] 18 Jan, 2012 [facility] [address] [id number] [address] [place] [address], [place] [address] Jan, [facility] [address] [id number] [address] [place] [address], [place] [address] 06 Jan, 2012 [facility] [address] [id number] [address] [place] [address], [place] [address] Jan, [facility] [place] [address] [id number] [place] [id number] Dec, [facility] [address] [id number] [address] [place] [address], [place] [address] Dec, [facility] [place] [address] [id number] [place] [id number] Dec, [facility] [address] [id number] [address] [place] [address], [place] [address] Dec, [facility] [address] [id number] [address] [place] [address], [place] [address] Dec, [facility] [address] [id number] [address] [place] [address] Dec, [facility] [address] [facility] [id number] [address] [place] [address] Nov, [facility] [address] [facility] [id number] [address] [place] [address] Nov, [facility] [address] [facility] [id number] [address] [place] [address] Nov, IMMUNIZATIONS No Known Immunizations SOCIAL HISTORY [...] Stent placed 08/19/2017 Hospitalization History Syncope- [facility] 12/2017 Hospitalization History heart cath ( 06/23/18-06/25/2018)
--- OUTSIDE RECORDS SUMMARY | 2019-11-03 19:36 | XMS REPORT ---
Author Author Anca Lucero Doctor Organization [facility] Address Unknown Phone Unavailable Care Team Providers Care Investigative Writer Name Role Phone Migration, Doctor Unavailable Unavailable PROBLEMS Type Condition ICD9-CM Code [id number] Code Onset Dates Condition S tatus SNOMED Code Problem Shortness of breath R06.02 Apr, 0 191835095 Problem Unspecified hypothyroidism E03.9 0 08229306 Problem Generalized anxiety disorder F41.1 Apr, 8 0 11650664 Problem Esophageal reflux K21.9 0 24 5944885 Problem Dyslipidemia E78.5 Oct, 0 3709 77020 Problem Osteoarthritis of right knee M17.11 May, 0 0 025785126 Problem Unspecified sleep apnea G47.30 0 28443151 Problem Morbid obesity with BMI of 50.0-59.9, adult Z68.43 Active 097666556 Problem Migraine with aura and without status migrainosu s, not intractable G43.109 Active 4485538 Problem Pulmonary embolus I26.99 13 Oct, 2011 0 47710605 Problem Morbid obesity E66.01 Active 60657 6002 Problem Nonintractable migraine G43.009 08 Oct, 2015 0 246235033 Problem Hypothyroidism E03.9 Active 06256 008 Problem Renal stones N20.0 Active 9224024 7 Problem Coronary artery disease I25.10 Active 83653615 Problem Hyperlipidemia LDL goal <70 E78.5 Ac tive 55445802 ALLERGIES No Information ENCOUNTERS Encounter Location Date Diagnosis [facility] [address] [facility] [id number] [address] [place] [address] Nov, [facility] [address] [facility] [id number] [address] [place] [address] Nov, UTI symptoms R39.9 and Morbi d obesity E66.01 [facility] [address] [facility] [id number] [address] [place] [address] Nov, [place] [address] [address] September, [place] [address] [address] September, [place] [address] [address] Aug, Right foot pain M79.671 and Morbid obesity E66.01 [place] [address] [address] Jul, Right foot pain M79.671 and Morbid obesity E66.01 [facility] [place] [address] [address] Jul, Injury of right foot, initia l encounter S99.921A and Morbid obesity E66.01 [place] [address] [address] Jul, Recurrent syncope R55 and Mo rbid obesity E66.01 [place] [address] [address] Jul, [place] [address] [address] Jun, Hematuria, unspecified type R31.9 and BMI 50.0-59.9, adult Z68.43 [place] [address] [address] Jun, [address] [address] 04 Jun, 2018 alf current use of anticoagulant Z 79.01 [facility] [place] [address] [address] May, Ankle pain, right M25.571 an d BMI 50.0-59.9, adult Z68.43 [place] [address] [address] May, [facility] [address] [place] [id number] [place] [address] May, [facility] [address] [address] Apr, [facility] [address] [place] [id number] [place] [address] Apr, [facility] [address] [address] Apr, [facility] [address] [place] [id number] [place] [address] Apr, BMI 50.0-59.9, adult Z68.43 and Weakness R53.1 [facility] [address] [address] Apr, [facility] [address] [address] Apr, Dysuria R30.0 ; Hematuria R3 1.9 ; Renal lithiasis N20.0 and BMI 50.0-59.9, adult Z68.43 [place] [address] [address] Apr, [facility] [address] [address] Apr, [facility] [address] [address] Apr, Hypothyroidism E03.9 [facility] [address] [place] [id number] [address] [place] [address] Apr, Burning with urination R30.0 ; Type 2 diabetes mellitus with diabetic neuropathic arthropathy, 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 [address] [facility] [id number] [address] [place] [address] 15 Jan, 2018 [facility] [address] [place] [id number] [address] [place] [address] 07 Jan, 2018 Acute non-recurrent maxillar y sinusitis J01.00 and BMI 50.0-59.9, adult Z68.[address] [facility] [address] [place] [id number] [address] [place] [address] 04 Jan, 2018 Congestion of upper respirat ory tract J98.8 and BMI 50.0-59.9, adult Z68.43 [place] [place] [id number] [address] [place] [address] 24 Dec, 2017 Type 2 diabetes mellitus wit h diabetic neuropathic arthropathy, without long-term current use of insulin E11.610 ; Morbid obesity with BMI of 50.0-59.9, adult Z68.43 ; Hypothyroidism E03.9 ; Coronary artery disease I25.10 ; Hyperlipidemia LDL goal <70 E78.5 ; Right lower quadrant abdominal pain R10.31 and Acute cystitis with hematuria N30.[address] [facility] [address] [place] [id number] [address] [place] [address] Dec, Migraine with aura and witho ut status migrainosus, not intractable G43.109 ; Dehydration symptoms R63.8 and BMI 50.0-59.9, adult Z68.43 [facility] [id number] [place] [address] Oct, [facility] [address] [address] Oct, [facility] [address] [place] [id number] [address] [place] [address] Oct, [facility] [address] [address] September, [place] [address] [address] September, Type 2 diabetes mellitus wit h diabetic neuropathic arthropathy, without long-term current use of insulin E11.610 ; Hyperlipidemia, unspecified hyperlipidemia type E78.5 ; Personal history of pulmonary embolism Z86.711 ; Coronary artery disease I25.10 and Hypothyroidism E03.9 [place] [address] [address] September, [place] [address] [address] Aug, Type 2 diabetes mellitus wit h [...] and with status migrainosus G43.011 [place] [address] [address] Aug, [place] [address] [address] Aug, [place] [address] [address] Jul, Renal stones N20.0 [facility] [address] [place] [id number] [address] [place] [address] Jun, Back pain M54.9 ; Kidney sto radha N20.0 and BMI 50.0-59.9, adult Z68.43 [place] [address] [address] Jun, [facility] [address] [address] 18 Apr, 2017 [facility] [address] [address] Apr, [place] [address] [address] Apr, Right foot pain M79.671 ; Ac quileute gout involving toe of right foot, 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 and Arthritis M19.90 [place] [address] [address] 06 Apr, 2017 Gastroesophageal reflux dise ase without esophagitis K21.9 [place] [address] [address] Mar, Hypothyroidism, unspecified E03.9 [place] [address] [address] Feb, [place] [address] [address] 25 Jan, 2017 Cervicalgia of occipito-atla nto-axial region M54.2 and Persistent headaches R51 [place] [address] [address] 20 Jan, 2017 [place] [address] [place] [id number] [place] [address] 12 Jan, 2017 Intractable migraine without aura and with status migrainosus G43.011 ; Cervical spine pain M54.2 ; Hyperlipidemia, unspecified hyperlipidemia type E78.5 ; Hypothyroidism E03.9 and Metabolic syndrome E88.81 [place] [address] [place] [id number] [address] [place] [address] Jan, Hypothyroidism, unspecified E03.9 [place] [address] [place] [id number] [address] [place] [address] Dec, Hypothyroidism, unspecified E03.9 [place] [address] [address] Dec, Hypothyroidism E03.9 [place] [address] [address] Nov, Laceration of left great toe w/o foreign body w/o damage to nail, initial encounter S91.112A [facility] [address] [place] [id number] [address] [place] [address] Oct, Pain in left knee M25.562 an d Arthritis M19.90 [place] [address] [address] Oct, Hypothyroidism, unspecified E03.9 and Hyperlipidemia, unspecified hyperlipidemia type E78.5 [place] [address] [address] Oct, Gastroesophageal reflux dise ase without esophagitis K21.9 [place] [address] [address] 14 Oct, 2016 Metabolic syndrome E88.81 ; Personal history of pulmonary embolism Z86.711 ; Other specified hypothyroidism E03.8 and Hyperlipidemia, unspecified hyperlipidemia type E78.5 [place] [address] [address] 13 Oct, 2017 Personal history of pulmonar y embolism Z86.711 ; Dysuria R30.0 ; Metabolic syndrome E88.81 ; Other specified hypothyroidism E03.8 ; Hyperlipidemia, unspecified hyperlipidemia type E78.5 and Morbid obesity with BMI of 50.0-59.9, adult Z68.43 [place] [address] [place] [id number] [address] [place] [address] September, [facility] [address] [address] September, Wrist pain, left M25.532 and Acute pain of left knee M25.562 [place] [address] [place] [id number] [address] [place] [address] Jul, Dysuria R30.0 [place] [address] [address] 30 Jul, 2016 Dysuria R30.[address] [address] 16 Jul, 2016 Left lower quadrant pain R10 .32 [place] [address] [address] 14 Jul, [address] [address] Jul, Coronary artery disease I25. 10 ; Family history of diabetes mellitus Z83.3 ; Morbid obesity with BMI of 50.0-59.9, adult Z68.43 ; Metabolic syndrome E88.81 ; Personal history of pulmonary embolism Z86.711 ; Gastroesophageal reflux disease without esophagitis K21.9 ; Hypothyroidism, unspecified E03.9 ; Hyperlipidemia, unspecified hyperlipidemia type E78.5 and Left lower quadrant pain R10.32 [facility] [address] [address] 09 Jul, 2016 [facility] [address] [address] 08 Jul, 2016 Morbid obesity with BMI of 5 0.0-59.9, adult Z68.43 [facility] IN [address] [address] Jul, Generalized abdominal pain R 10.84 [facility] IN [address] [address] Jun, Muscle strain of right upper back, initial encounter S29.012A [facility] [address] [address] May, Foreign body (FB) in soft ti ssue M79.5 [place] [address] [address] Mar, Hypothyroidism, unspecified E03.9 and Arthritis M19.90 [place] [address] [address] 13 Feb, 2016 Coronary artery disease I25. 10 ; Morbid obesity with BMI of 50.0- 59.9, adult Z68.43 ; Metabolic syndrome E88.81 ; Gastroesophageal reflux disease without esophagitis K21.9 ; Hypothyroidism, unspecified E03.9 ; Personal history of pulmonary embolism Z86.711 and Hyperlipidemia, unspecified hyperlipidemia type E78.5 [place] [address] [address] Feb, [facility] [address] [place] [address] Jan, Acute right-sided thoracic b ack pain M54.[address] [address] Jan, Acute pain of left knee M25. [address] [address] Dec, Dysuria R30.0 ; Metabolic sy ndrome E88.81 ; Acute pain of left knee M25.562 ; Acute cystitis with hematuria N30.01 and Acute left eye pain H57.12 [place] [address] [address] Dec, [place] [address] [address] Dec, [place] [address] [address] Dec, Hypothyroidism, unspecified E03.9 [place] [address] [address] Dec, [place] [address] [address] Nov, Peripheral edema R60.9 and A cute pain of left knee M25.562 [facility] [address] [place] [address], [place] [address] September, [place] [address] [address] September, Metabolic syndrome E88.81 an d Allergy, subsequent encounter T78.40XD [facility] [place] [address] [address] September, Muscle strain T14.8 [place] [address] [address] Aug, Chest pressure R07.89 ; [place] bolic syndrome E88.81 ; Morbid obesity with BMI of 50.0-59.9, adult Z68.43 ; Esophageal reflux 530.81 and Shortness of breath R06.02 [place] [address] [address] Aug, [place] [address] [address] Aug, [place] [address] [address] Aug, Hypothyroidism, unspecified E03.9 [place] [address] [address] Aug, Routine health maintenance Z 00.00 [facility] [address] [address] Aug, [place] [address] [address] Jul, Routine health maintenance Z 00.00 ; Family history of diabetes mellitus Z83.3 ; Family history of cancer Z80.9 and Morbid obesity with BMI of 50.0-59.9, adult Z68.43 [facility] [address] [place] [id number] [address] [place] [address] Jul, Allergic rhinitis J30.9 and Postnasal drip R09.82 [place] [address] [place] [address] [address] 18 Jul, 2015 Influenza J11.1 [facility] [address] [id number] [address] [place] [address] 08 Jul, 2015 Dysuria R30.0 [facility] [address] [id number] [address] [place] [address] Apr, [facility] [address] [facility] [id number] [address] [place] [address] Mar, Acute upper respiratory infe ction, unspecified J06.9 and Hypothyroidism E03.9 [facility] [address] [id number] [address] [place] [address] Mar, [facility] [address] [facility] [id number] [address] [place] [address] Feb, Coronary artery disease I25. 10 [facility] [address] [facility] [id number] [address] [place] [address] Feb, Left foot pain M79.672 [facility] [address] [id number] [address] [place] [address] Jan, UTI (urinary tract infection ) 599.0 [facility] [address] [facility] [id number] [address] [place] [address] Jan, Urinary tract infection, sit e not specified 599.0 [facility] [address] [id number] [address] [place] [address] Jan, Urinary tract infection, sit e not specified 599.0 [facility] [address] [id number] [address] [place] [address] Jan, [facility] [address] [facility] [id number] [address] [place] [address] Dec, Headache 784.0 [facility] [address] [facility] [id number] [address] [place] [address] Dec, Urinary tract infection, sit e not specified 599.0 [facility] [address] [id number] [address] [place] [address] Dec, Urinary tract infection, sit e not specified 599.0 [facility] [address] [id number] [address] [place] [address] Dec, Urinary tract infection, sit e not specified 599.0 [facility] [address] [facility] [id number] [address] [place] [address] Nov, Unspecified sleep apnea 780. 57 ; Encounter for long-term (current) use of anticoagulants V58.61 ; Routine general medical examination at health care facility V70.0 and Arthritis of both knees 716.96 [facility] [address] [facility] [id number] [address] [place] [address] September, Cat bite of hand 882.0 and R ectal bleeding 569.3 [facility] [address] [facility] [id number] [address] [place] [address] Aug, [facility] [address] [id number] [address] [place] [address] Aug, [facility] [address] [facility] [id number] [address] [place] [address] Jul, [facility] [address] [id number] [address] [place] [address] Jul, [facility] [address] [id number] [address] [place] [address] Jul, [facility] [address] [id number] [address] [place] [address] Jul, [facility] [address] [facility] [id number] [address] [place] [id number] Jul, [facility] [address] [facility] [id number] [address] [place] [address] Jul, [facility] [address] [facility] [id number] [address] [place] [address] Jul, [facility] [address] [id number] [address] [place] [address], [place] [id number] Jul, [facility] [place] [facility] [address] [id number] [address] [place] [address], [place] [id number] May, [facility] [place] [facility] [address] [id number] [address] [place] [address], [place] [id number] May, [facility] [place] [facility] [address] [id number] [address] [place] [address], [place] [id number] May, [facility] [address] [id number] [address] [place] [address], [place] [id number] May, [facility] [place] [facility] [address] [id number] [address] [place] [address], [place] [id number] May, [facility] [place] [facility] [address] [id number] [address] [place] [address], [place] [id number] May, [facility] [place] [facility] [address] [id number] [address] [place] [address], [place] [id number] May, [facility] [place] [facility] [address] [id number] [address] [place] [address], [place] [id number] Mar, [facility] [place] [facility] [address] [id number] [address] [place] [address], [place] [id number] Mar, [facility] [place] [facility] [address] [id number] [address] [place] [address], [place] [id number] 08 Jan, 2013 [facility] [place] [facility] [address] [id number] [address] [place] [address], [place] [id number] 08 Sep, 2013 [facility] [place] [facility] [address] [id number] [address] [place] [address], [place] [id number] 08 Sep, 2013 [facility] [place] [facility] [address] [id number] [address] [place] [address], [place] [id number] 08 Jan, 2013 [facility] [place] [facility] [address] [id number] [address] [place] [address], [place] [id number] 05 Sep, 2013 [facility] [place] [facility] [address] [id number] [address] [place] [address] [place] [id number] Jan, [facility] [address] [id number] [facility] [place] [id number] Dec, [facility] [place] [facility] [address] [id number] [address] [place] [address], [place] [id number] Dec, [facility] [address] [id number] [address] [place] [address], [place] [id number] Dec, [facility] [place] [facility] [address] [id number] [address] [place] [address], [place] [id number] Dec, [facility] [place] [facility] [address] [id number] [address] [place] [address], [place] [id number] Dec, [facility] [address] [id number] [address] [place] [address], [place] [id number] Dec, [facility] [address] [id number] [address] [place] [address], [place] [id number] Dec, [facility] [address] [id number] [address] [place] [address], [place] [id number] Dec, [facility] [address] [id number] [address] [place] [address], [place] [id number] Dec, [facility] [address] [id number] [address] [place] [address], [place] [id number] Dec, [facility] [place] [facility] [address] [id number] [address] [place] [address], [place] [id number] Nov, [facility] [place] [facility] [address] [id number] [address] [place] [address], [place] [id number] Nov, [facility] [place] [facility] [address] [id number] [address] [place] [address], [place] [id number] September, [facility] [place] [facility] [address] [id number] [address] [place] [address], [place] [id number] September, [facility] [place] [facility] [address] [id number] [address] [place] [address], [place] [id number] September, [facility] [place] [facility] [address] [id number] [facility] [place] [id number] September, [facility] [address] [id number] [address] [place] [address], [place] [id number] Aug, [facility] [address] [id number] [address] [place] [address], [place] [id number] Aug, [facility] [address] [id number] [address] [place] [address], [place] [id number] Aug, [facility] [address] [id number] [address] [place] [address], [place] [id number] Aug, [facility] [address] [id number] [address] [place] [address], [place] [id number] Aug, [facility] [address] [id number] [address] [place] [address], [place] [id number] Aug, [facility] [address] [id number] [address] [place] [address], [place] [id number] Aug, [facility] [address] [id number] [address] [place] [address], [place] [id number] Aug, [facility] [address] [id number] [address] [place] [address], [place] [id number] Aug, [facility] [address] [id number] [address] [place] [address], [place] [id number] Aug, [facility] [address] [id number] [address] [place] [address], [place] [id number] Aug, [facility] [address] [id number] [address] [place] [address], [place] [id number] Aug, [facility] [address] [id number] [address] [place] [address], [place] [id number] Jul, [facility] [address] [id number] [address] [place] [address], [place] [id number] Jul, [facility] [address] [id number] [address] [place] [address], [place] [id number] Jul, [facility] [address] [id number] [address] [place] [address], [place] [id number] Jul, [facility] [address] [id number] [address] [place] [address], [place] [id number] Jul, [facility] [address] [id number] [address] [place] [address], [place] [id number] Jul, [facility] [address] [id number] [address] [place] [address], [place] [id number] Jul, [facility] [address] [id number] [address] [place] [address], [place] [id number] Jul, [facility] [address] [id number] [address] [place] [address], [place] [id number] Jul, [facility] [address] [id number] [address] [place] [address], [place] [id number] Jul, [facility] [address] [id number] [address] [place] [address], [place] [id number] Jun, [facility] [facility] [address] [id number] [address] [place] [address], [place] [id number] Jun, [facility] [address] [id number] [address] [place] [address], [place] [id number] Jun, [facility] [address] [id number] [address] [place] [address], [place] [id number] 17 Jun, 2013 [facility] [address] [id number] [address] [place] [address], [place] [id number] Jun, [facility] [address] [id number] [address] [place] [address], [place] [id number] Jun, [facility] [address] [id number] [address] [place] [address], [place] [id number] Jun, [facility] [address] [id number] [address] [place] [address], [place] [id number] Jun, [facility] [address] [id number] [address] [place] [address], [place] [id number] Jun, [facility] [address] [id number] [address] [place] [address], [place] [id number] Jun, [facility] [address] [id number] [address] [place] [address], [place] [id number] Jun, [facility] [address] [id number] [address] [place] [address], [place] [id number] Jun, [facility] [address] [id number] [address] [place] [address], [place] [id number] May, [facility] [address] [id number] [address] [place] [address], [place] [id number] May, [facility] [address] [id number] [address] [place] [address], [place] [id number] May, [facility] [address] [id number] [address] [place] [address], [place] [id number] May, [facility] [address] [id number] [address] [place] [address], [place] [id number] May, [facility] [address] [id number] [address] [place] [address], [place] [id number] May, [facility] [address] [id number] [address] [place] [address], [place] [id number] May, [facility] [address] [id number] [address] [place] [address], [place] [id number] May, [facility] [address] [id number] [address] [place] [address], [place] [id number] May, [facility] [address] [id number] [address] [place] [address], [place] [id number] May, [facility] [address] [id number] [address] [place] [address], [place] [id number] May, [facility] [address] [id number] [address] [place] [id number] May, [facility] [address] [id number] [address] [place] [address], [place] [id number] May, [facility] [address] [id number] [address] [place] [address], [place] [id number] May, [facility] [address] [id number] [address] [place] [address], [place] [id number] May, [facility] [address] [id number] [address] [place] [address], [place] [id number] Apr, [facility] [address] [id number] [address] [place] [address], [place] [id number] Apr, [facility] [address] [id number] [address] [place] [address], [place] [id number] Apr, [facility] [address] [id number] [address] [place] [address], [place] [id number] Apr, [facility] [address] [id number] [address] [place] [address], [place] [id number] Mar, [facility] [address] [id number] [address] [place] [address], [place] [id number] Mar, [facility] [address] [id number] [address] [place] [address], [place] [id number] Mar, [facility] [address] [id number] [address] [place] [id number] Mar, [facility] [address] [id number] [address] [place] [id number] Mar, [facility] [address] [id number] [address] [place] [address], [place] [id number] Mar, [facility] [address] [id number] [address] [place] [address], [place] [id number] Mar, [facility] [address] [id number] [address] [place] [address], [place] [id number] Mar, [facility] [address] [id number] [address] [place] [address], [place] [id number] 05 Mar, 2013 [facility] [address] [id number] [address] [place] [address], [place] [id number] Mar, [facility] [address] [id number] [address] [place] [address], [place] [id number] Mar, [facility] [address] [id number] [address] [place] [address], [place] [id number] Mar, [facility] [address] [id number] [address] [place] [address], [place] [id number] Feb, [facility] [address] [id number] [address] [place] [address], [place] [id number] 18 Jan, 2013 [facility] [address] [id number] [address] [place] [address], [place] [id number] 17 Jan, 2012 [facility] [address] [id number] [address] [place] [address], [place] [id number] 06 Jan, 2012 [facility] [address] [id number] [address] [place] [address], [place] [id number] 04 Jan, 2013 [facility] [address] [id number] [address] [place] [address], [place] [id number] 03 Jan, 2013 [facility] [address] [id number] [address] [place] [address], [place] [id number] 26 Dec, 2012 [facility] [address] [id number] [address] [place] [address], [place] [id number] Dec, [facility] [address] [id number] [address] [place] [address], [place] [id number] 18 Dec, 2012 [facility] [address] [id number] [address] [place] [address], [place] [id number] 16 Dec, 2012 [facility] [address] [id number] [address] [place] [address], [place] [id number] Dec, [facility] [address] [id number] [address] [place] [address], [place] [id number] Dec, [facility] [address] [id number] [address] [place] [address], [place] [id number] Dec, [facility] [address] [id number] [address] [place] [address], [place] [id number] Dec, [facility] [address] [id number] [address] [place] [address], [place] [id number] Nov, [facility] [address] [id number] [address] [place] [address], [place] [id number] Nov, [facility] [address] [id number] [address] [place] [address], [place] [id number] Nov, [facility] [address] [id number] [address] [place] [address], [place] [id number] Nov, [facility] [address] [id number] [address] [place] [address], [place] [id number] Nov, [facility] [address] [id number] [address] [place] [address], [place] [id number] Nov, [facility] [address] [id number] [address] [place] [address], [place] [id number] Oct, [facility] [address] [id number] [place] [id number] Oct, [facility] [address] [id number] [place] [id number] Oct, [facility] [address] [id number] [place] [id number] Oct, [facility] [address] [id number] [place] [id number] Oct, [facility] [address] [id number] [address] [place] [address], [place] [id number] Oct, [facility] [address] [id number] [address] [place] [address], [place] [id number] Oct, [facility] [address] [id number] [address] [place] [address], [place] [id number] Oct, [facility] [address] [id number] [address] [place] [address], [place] [id number] Oct, [facility] [address] [id number] [address] [place] [address], [place] [id number] Oct, [facility] [address] [id number] [address] [place] [address], [place] [id number] Oct, [facility] [address] [id number] [address] [place] [address], [place] [id number] September, [facility] [address] [id number] [address] [place] [address], [place] [id number] Aug, [facility] [address] [id number] [address] [place] [address], [place] [id number] Aug, [facility] [address] [id number] [address] [place] [address], [place] [id number] Aug, [facility] [address] [id number] [address] [place] [address], [place] [id number] Aug, [facility] [address] [id number] [address] [place] [address], [place] [id number] Jul, [facility] [address] [id number] [address] [place] [address], [place] [id number] Jul, [facility] [address] [id number] [address] [place] [address], [place] [id number] Jul, [facility] [address] [id number] [address] [place] [address], [place] [id number] Jul, [facility] [address] [id number] [address] [place] [address], [place] [id number] Jul, [facility] [address] [id number] [address] [place] [address], [place] [id number] Jun, [facility] [address] [id number] [address] [place] [address], [place] [id number] Jun, [facility] [address] [id number] [address] [place] [address], [place] [id number] 11 Jun, [address] [facility] [address] [id number] [address] [place] [address], [place] [id number] May, [facility] [address] [id number] [address] [place] [address], [place] [id number] 24 May, 2012 [facility] [address] [id number] [address] [place] [address], [place] [id number] May, [facility] [address] [id number] [address] [place] [address], [place] [id number] May, [facility] [address] [id number] [address] [place] [address], [place] [id number] May, [facility] [address] [id number] [address] [place] [address], [place] [id number] May, [facility] [address] [id number] [address] [place] [address], [place] [id number] 18 Apr, 2012 [facility] [address] [id number] [address] [place] [address], [place] [id number] 18 Apr, 2012 [facility] [address] [id number] [address] [place] [address], [place] [id number] Apr, [facility] [address] [id number] [address] [place] [address], [place] [id number] Apr, [facility] [address] [id number] [address] [place] [address], [place] [id number] Apr, [facility] [address] [id number] [address] [place] [address], [place] [id number] Apr, [facility] [address] [id number] [address] [place] [address], [place] [id number] Apr, [facility] [address] [id number] [address] [place] [address], [place] [id number] 12 Mar, 2012 [facility] [address] [id number] [address] [place] [address], [place] [id number] Mar, [facility] [address] [id number] [address] [place] [id number] Mar, [facility] [address] [id number] [address] [place] [id number] Mar, [facility] [address] [id number] [address] [place] [phone] Jan, [facility] [address] [id number] [address] [place] [phone] Jan, [facility] [address] [id number] [address] [place] [id number] Jan, [facility] [address] [id number] [address] [place] [id number] Jan, [facility] [address] [id number] [place] [id number] Dec, [facility] [address] [id number] [address] [place] [id number] Dec, [facility] [address] [id number] [place] [id number] Dec, [facility] [address] [id number] [address] [place] [phone] Dec, [facility] [address] [id number] [address] [place] [phone] Dec, [facility] [address] [id number] [address] [place] [phone] Dec, [facility] [address] [id number] [address] [place] [phone] Nov, [facility] [address] [id number] [address] [place] [id number] Nov, [facility] [address] [facility] [id number] [address] [place] [phone] Nov, IMMUNIZATIONS No Known Immunizations SOCIAL HISTORY Never Assessed REASON FOR VISIT PLAN OF CARE VITAL SIGNS Height 64 in 2014-05-26 Weight 324 lbs 2014-05-26 Temperature 97.5 degrees Fahrenheit 2014-05-26 Heart Rate 84 bpm 2014-05-26 Respiratory Rate 20 2014-05-26 Blood pressure systolic 124 mmHg 2014-05-26 Blood pressure diastolic 82 mmHg 2014-05-26 MEDICATIONS Unknown Medications RESULTS No Results PROCEDURES Procedure Date Ordered Result Body Site COMPLETE CBC W/AUTO DIFF WBC May 26, 2014 PROTHROMBIN TIME May 26, 2014 ASSAY THYROID STIM HORMONE May 26, 2014 VENIPUNCT, ROUTINE* May 26, 2014 INSTRUCTIONS MEDICATIONS ADMINISTERED No Known Medications MEDICAL [...] asthma(493.90) Medical History Near syncope 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
--- OUTSIDE RECORDS SUMMARY | 2019-11-03 19:36 | XMS REPORT ---
Author Author Anca Lucero Doctor Organization [facility] Address Unknown Phone Unavailable Care Team Providers Care Critical Power Technician Name Role Phone Migration, Doctor Unavailable Unavailable PROBLEMS Type Condition ICD9-CM Code [id number] Code Onset Dates Condition S tatus SNOMED Code Problem Shortness of breath R06.02 Apr, 0 847277790 Problem Unspecified hypothyroidism E03.9 0 92317843 Problem Generalized anxiety disorder F41.1 Apr, 8 0 81312457 Problem Esophageal reflux K21.9 0 24 7199584 Problem Dyslipidemia E78.5 Oct, 0 3709 15413 Problem Osteoarthritis of right knee M17.11 May, 0 0 790103868 Problem Unspecified sleep apnea G47.30 0 71988192 Problem Morbid obesity with BMI of 50.0-59.9, adult Z68.43 Active 410111273 Problem Migraine with aura and without status migrainosu s, not intractable G43.109 Active 4909047 Problem Pulmonary embolus I26.99 13 Oct, 2011 0 90497758 Problem Morbid obesity E66.01 Active 34451 6002 Problem Nonintractable migraine G43.009 08 Oct, 2015 0 342134227 Problem Hypothyroidism E03.9 Active 27071 008 Problem Renal stones N20.0 Active 7756111 7 Problem Coronary artery disease I25.10 Active 92124244 Problem Hyperlipidemia LDL goal <70 E78.5 Ac tive 61445598 ALLERGIES No Information ENCOUNTERS Encounter Location Date Diagnosis [facility] [address] [facility] [id number] [address] [place] [address] Nov, [facility] [address] [facility] [id number] [address] [place] [address] Nov, UTI symptoms R39.9 and Morbi d obesity E66.01 [facility] [address] [facility] [id number] [address] [place] [address] Nov, [place] [address] [address] September, [place] [address] [address] September, [place] [address] [address] Aug, Right foot pain M79.671 and Morbid obesity E66.01 [place] [address] [address] Jul, Right foot pain M79.671 and Morbid obesity E66.01 [facility] [place] [address] [address] Jul, Injury of right foot, initia l encounter S99.921A and Morbid obesity E66.01 [place] [address] [address] Jul, Recurrent syncope R55 and Mo rbid obesity E66.01 [place] [address] [address] Jul, [place] [address] [address] Jun, Hematuria, unspecified type R31.9 and BMI 50.0-59.9, adult Z68.43 [place] [address] [address] Jun, [address] [address] 04 Jun, 2018 [facility] current use of anticoagulant Z 79.01 [facility] [place] [address] [address] May, Ankle pain, right M25.571 an d BMI 50.0-59.9, adult Z68.43 [place] [address] [address] May, [facility] [address] [place] [id number] [place] [address] May, [facility] [address] [address] Apr, [facility] [address] [place] [id number] [place] [address] Apr, [facility] [address] [address] Apr, [facility] [address] [place] [id number] [place] [address] Apr, BMI 50.0-59.9, adult Z68.43 and Weakness R53.1 [facility] [address] [address] Apr, [facility] [address] [address] Apr, Dysuria R30.0 ; Hematuria R3 1.9 ; Renal lithiasis N20.0 and BMI 50.0-59.9, adult Z68.43 [place] [address] [address] Apr, [facility] [address] [address] Apr, [facility] [address] [address] Apr, Hypothyroidism E03.9 [facility] [address] [place] [id number] [address] [place] [address] Apr, Burning with urination R30.0 ; Type 2 diabetes mellitus with diabetic neuropathic arthropathy, 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 ; Acute bilateral low back pain without sciatica M54.5 and BMI 50.0- 59.9, adult Z68.43 [place] [address] [address] Mar, Hypothyroidism E03.9 [facility] [address] [place] [id number] [address] [place] [address] Feb, [facility] [address] [facility] [id number] [address] [place] [address] 15 Jan, 2018 [facility] [address] [place] [id number] [address] [place] [address] 07 Jan, 2018 Acute non-recurrent maxillar y sinusitis J01.00 and BMI 50.0-59.9, adult Z68.43 [facility] [address] [place] [id number] [address] [place] [address] 04 Jan, 2018 Congestion of upper respirat ory tract J98.8 and BMI 50.0-59.9, adult Z68.43 [place] [id number] [place] [id number] [address] [place] [address] 24 Dec, 2017 Type 2 diabetes mellitus wit h diabetic neuropathic arthropathy, without long-term current use of insulin E11.610 ; Morbid obesity with BMI of 50.0-59.9, adult Z68.43 ; Hypothyroidism E03.9 ; Coronary artery disease I25.10 ; Hyperlipidemia LDL goal <70 E78.5 ; Right lower quadrant abdominal pain R10.31 and Acute cystitis with hematuria N30.01 [facility] [address] [place] [id number] [address] [place] [address] Dec, Migraine with aura and witho ut status migrainosus, not intractable G43.109 ; Dehydration symptoms R63.8 and BMI 50.0-59.9, adult Z68.43 [facility] [address] [place] [address] Oct, [facility] [address] [address] Oct, [facility] [address] [place] [id number] [address] [place] [address] Oct, [facility] [address] [address] September, [place] [address] [address] September, Type 2 diabetes mellitus wit h diabetic neuropathic arthropathy, without long-term current use of insulin E11.610 ; Hyperlipidemia, unspecified hyperlipidemia type E78.5 ; Personal history of pulmonary embolism Z86.711 ; Coronary artery disease I25.10 and Hypothyroidism E03.9 [place] [address] [address] September, [place] [address] [address] Aug, Type 2 diabetes mellitus wit h [...] and with status migrainosus G43.011 [place] [address] [address] Aug, [place] [address] [address] Aug, [place] [address] [address] Jul, Renal stones N20.0 [facility] [address] [place] [id number] [address] [place] [address] Jun, Back pain M54.9 ; Kidney sto radha N20.0 and BMI 50.0-59.9, adult Z68.43 [place] [address] [address] Jun, [facility] [address] [address] 18 Apr, 2017 [facility] [address] [address] Apr, [place] [address] [address] Apr, Right foot pain M79.671 ; [place] gout involving toe of right foot, 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 and Arthritis M19.90 [place] [address] [address] 06 Apr, 2017 Gastroesophageal reflux dise ase without esophagitis K21.9 [place] [address] [address] Mar, Hypothyroidism, unspecified E03.9 [place] [address] [address] Feb, [place] [address] [address] 25 Jan, 2017 Cervicalgia of occipito-atla nto-axial region M54.2 and Persistent headaches R51 [place] [address] [address] 20 Jan, 2017 [place] [address] [place] [id number] [place] [address] 12 Jan, 2017 Intractable migraine without aura and with status migrainosus G43.011 ; Cervical spine pain M54.2 ; Hyperlipidemia, unspecified hyperlipidemia type E78.5 ; Hypothyroidism E03.9 and Metabolic syndrome E88.81 [place] [address] [place] [id number] [address] [place] [address] Jan, Hypothyroidism, unspecified E03.9 [place] [address] [place] [id number] [address] [place] [address] Dec, Hypothyroidism, unspecified E03.9 [place] [address] [address] Dec, Hypothyroidism E03.9 [place] [address] [address] Nov, Laceration of left great toe w/o foreign body w/o damage to nail, initial encounter S91.112A [facility] [address] [place] [id number] [address] [place] [address] Oct, Pain in left knee M25.562 an d Arthritis M19.90 [place] [address] [address] Oct, Hypothyroidism, unspecified E03.9 and Hyperlipidemia, unspecified hyperlipidemia type E78.5 [place] [address] [address] Oct, Gastroesophageal reflux dise ase without esophagitis K21.9 [place] [address] [address] 14 Oct, 2016 Metabolic syndrome E88.81 ; Personal history of pulmonary embolism Z86.711 ; Other specified hypothyroidism E03.8 and Hyperlipidemia, unspecified hyperlipidemia type E78.5 [place] [address] [address] 13 Oct, 2017 Personal history of pulmonar y embolism Z86.711 ; Dysuria R30.0 ; Metabolic syndrome E88.81 ; Other specified hypothyroidism E03.8 ; Hyperlipidemia, unspecified hyperlipidemia type E78.5 and Morbid obesity with BMI of 50.0-59.9, adult Z68.43 [place] [address] [place] [id number] [address] [place] [address] September, [facility] [address] [address] September, Wrist pain, left M25.532 and Acute pain of left knee M25.562 [place] [address] [place] [id number] [address] [place] [address] Jul, Dysuria R30.0 [place] [address] [address] 30 Jul, 2016 Dysuria R30.[address] [address] 16 Jul, 2016 Left lower quadrant pain R10 .32 [place] [address] [address] 14 Jul, [address] [address] Jul, Coronary artery disease I25. 10 ; Family history of diabetes mellitus Z83.3 ; Morbid obesity with BMI of 50.0-59.9, adult Z68.43 ; Metabolic syndrome E88.81 ; Personal history of pulmonary embolism Z86.711 ; Gastroesophageal reflux disease without esophagitis K21.9 ; Hypothyroidism, unspecified E03.9 ; Hyperlipidemia, unspecified hyperlipidemia type E78.5 and Left lower quadrant pain R10.32 [facility] [address] [address] 09 Jul, 2016 [facility] [address] [address] 08 Jul, 2016 Morbid obesity with BMI of 5 0.0-59.9, adult Z68.43 [facility] [address] [address] Jul, Generalized abdominal pain R 10.84 [facility] [address] [address] Jun, Muscle strain of right upper back, initial encounter S29.012A [facility] [address] [address] May, Foreign body (FB) in soft ti ssue M79.5 [place] [address] [address] Mar, Hypothyroidism, unspecified E03.9 and Arthritis M19.90 [place] [address] [address] 13 Feb, 2016 Coronary artery disease I25. 10 ; Morbid obesity with BMI of 50.0- 59.9, adult Z68.43 ; Metabolic syndrome E88.81 ; Gastroesophageal reflux disease without esophagitis K21.9 ; Hypothyroidism, unspecified E03.9 ; Personal history of pulmonary embolism Z86.711 and Hyperlipidemia, unspecified hyperlipidemia type E78.5 [place] [address] [address] Feb, [facility] [address] [place] [address] Jan, Acute right-sided thoracic b ack pain M54.[address] [address] Jan, Acute pain of left knee M25. [address] [address] Dec, Dysuria R30.0 ; Metabolic sy ndrome E88.81 ; Acute pain of left knee M25.562 ; Acute cystitis with hematuria N30.01 and Acute left eye pain H57.12 [place] [address] [address] Dec, [place] [address] [address] Dec, [place] [address] [address] Dec, Hypothyroidism, unspecified E03.9 [place] [address] [address] Dec, [place] [address] [address] Nov, Peripheral edema R60.9 and A cute pain of left knee M25.562 [facility] [address] [place] [address], [place] [address] September, [place] [address] [address] September, Metabolic syndrome E88.81 an d Allergy, subsequent encounter T78.40XD [facility] [place] [address] [address] September, Muscle strain T14.8 [place] [address] [address] Aug, Chest pressure R07.89 ; [place] bolic syndrome E88.81 ; Morbid obesity with BMI of 50.0-59.9, adult Z68.43 ; Esophageal reflux 530.81 and Shortness of breath R06.02 [place] [address] [address] Aug, [place] [address] [address] Aug, [place] [address] [address] Aug, Hypothyroidism, unspecified E03.9 [place] [address] [address] Aug, Routine health maintenance Z 00.00 [facility] [address] [address] Aug, [place] [address] [address] Jul, Routine health maintenance Z 00.00 ; Family history of diabetes mellitus Z83.3 ; Family history of cancer Z80.9 and Morbid obesity with BMI of 50.0-59.9, adult Z68.43 [facility] [address] [place] [id number] [address] [place] [address] Jul, Allergic rhinitis J30.9 and Postnasal drip R09.82 [place] [address] [place] [address] [address] 18 Jul, 2015 Influenza J11.1 [facility] [address] [id number] [address] [place] [address] 08 Jul, 2015 Dysuria R30.0 [facility] [address] [id number] [address] [place] [address] Apr, [facility] [address] [facility] [id number] [address] [place] [address] Mar, Acute upper respiratory infe ction, unspecified J06.9 and Hypothyroidism E03.9 [facility] [address] [id number] [address] [place] [address] Mar, [facility] [address] [facility] [id number] [address] [place] [address] Feb, Coronary artery disease I25. 10 [facility] [address] [facility] [id number] [address] [place] [address] Feb, Left foot pain M79.672 [facility] [address] [id number] [address] [place] [address] Jan, UTI (urinary tract infection ) 599.0 [facility] [address] [facility] [id number] [address] [place] [address] Jan, Urinary tract infection, sit e not specified 599.0 [facility] [address] [id number] [address] [place] [address] Jan, Urinary tract infection, sit e not specified 599.0 [facility] [address] [id number] [address] [place] [address] Jan, [facility] [address] [facility] [id number] [address] [place] [address] Dec, Headache 784.0 [facility] [address] [facility] [id number] [address] [place] [address] Dec, Urinary tract infection, sit e not specified 599.0 [facility] [address] [id number] [address] [place] [address] Dec, Urinary tract infection, sit e not specified 599.0 [facility] [address] [id number] [address] [place] [address] Dec, Urinary tract infection, sit e not specified 599.0 [facility] [address] [facility] [id number] [address] [place] [address] Nov, Unspecified sleep apnea 780. 57 ; Encounter for long-term (current) use of anticoagulants V58.61 ; Routine general medical examination at health care facility V70.0 and Arthritis of both knees 716.96 [facility] [address] [facility] [id number] [address] [place] [address] September, Cat bite of hand 882.0 and R ectal bleeding 569.3 [facility] [address] [facility] [id number] [address] [place] [address] Aug, [facility] [address] [id number] [address] [place] [address] Aug, [facility] [address] [facility] [id number] [address] [place] [address] Jul, [facility] [address] [id number] [address] [place] [address] Jul, [facility] [address] [id number] [address] [place] [address] Jul, [facility] [address] [id number] [address] [place] [address] Jul, [facility] [address] [facility] [id number] [address] [place] [address] Jul, [facility] [address] [facility] [id number] [address] [place] [address] Jul, [facility] [address] [facility] [id number] [address] [place] [address] Jul, [facility] [address] [id number] [address] [place] [address], [place] [address] Jul, [facility] [place] [facility] [address] [id number] [address] [place] [address], [place] [address] May, [facility] [place] [facility] [address] [id number] [address] [place] [address], [place] [address] May, [facility] [place] [facility] [address] [id number] [address] [place] [address], [place] [address] May, [facility] [address] [id number] [address] [place] [address], [place] [address] May, [facility] [place] [facility] [address] [id number] [address] [place] [address], [place] [address] May, [facility] [place] [facility] [address] [id number] [address] [place] [address], [place] [address] May, [facility] [place] [facility] [address] [id number] [address] [place] [address], [place] [address] May, [facility] [place] [facility] [address] [id number] [address] [place] [address], [place] [address] Mar, [facility] [place] [facility] [address] [id number] [address] [place] [address], [place] [address] Mar, [facility] [place] [facility] [address] [id number] [address] [place] [address], [place] [address] 08 Jan, 2013 [facility] [place] [facility] [address] [id number] [address] [place] [address], [place] [address] 08 Sep, 2013 [facility] [place] [facility] [address] [id number] [address] [place] [address], [place] [address] 08 Sep, 2013 [facility] [place] [facility] [address] [id number] [address] [place] [address], [place] [address] 08 Jan, 2013 [facility] [place] [facility] [address] [id number] [address] [place] [address], [place] [address] 05 Sep, 2013 [facility] [place] [facility] [address] [id number] [address] [place] [address] [place] [address] Jan, [facility] [address] [id number] [facility] [place] [address] Dec, [facility] [place] [facility] [address] [id number] [address] [place] [address], [place] [address] Dec, [facility] [address] [id number] [address] [place] [address], [place] [address] Dec, [facility] [place] [facility] [address] [id number] [address] [place] [address], [place] [address] Dec, [facility] [place] [facility] [address] [id number] [address] [place] [address], [place] [address] Dec, [facility] [address] [id number] [address] [place] [address], [place] [address] Dec, [facility] [address] [id number] [address] [place] [address], [place] [address] Dec, [facility] [address] [id number] [address] [place] [address], [place] [address] Dec, [facility] [address] [id number] [address] [place] [address], [place] [address] Dec, [facility] [address] [id number] [address] [place] [address], [place] [address] Dec, [facility] [place] [facility] [address] [id number] [address] [place] [address], [place] [address] Nov, [facility] [place] [facility] [address] [id number] [address] [place] [address], [place] [address] Nov, [facility] [place] [facility] [address] [id number] [address] [place] [address], [place] [address] September, [facility] [place] [facility] [address] [id number] [address] [place] [address], [place] [address] September, [facility] [place] [facility] [address] [id number] [address] [place] [address], [place] [address] September, [facility] [place] [facility] [address] [id number] [facility] [place] [address] September, [facility] [address] [id number] [address] [place] [address], [place] [address] Aug, [facility] [address] [id number] [address] [place] [address], [place] [address] Aug, [facility] [address] [id number] [address] [place] [address], [place] [address] Aug, [facility] [address] [id number] [address] [place] [address], [place] [address] Aug, [facility] [address] [id number] [address] [place] [address], [place] [address] Aug, [facility] [address] [id number] [address] [place] [address], [place] [address] Aug, [facility] [address] [id number] [address] [place] [address], [place] [address] Aug, [facility] [address] [id number] [address] [place] [address], [place] [address] Aug, [facility] [address] [id number] [address] [place] [address], [place] [address] Aug, [facility] [address] [id number] [address] [place] [address], [place] [address] Aug, [facility] [address] [id number] [address] [place] [address], [place] [address] Aug, [facility] [address] [id number] [address] [place] [address], [place] [address] Aug, [facility] [address] [id number] [address] [place] [address], [place] [address] Jul, [facility] [address] [id number] [address] [place] [address], [place] [address] Jul, [facility] [address] [id number] [address] [place] [address], [place] [address] Jul, [facility] [address] [id number] [address] [place] [address], [place] [address] Jul, [facility] [address] [id number] [address] [place] [address], [place] [address] Jul, [facility] [address] [id number] [address] [place] [address], [place] [address] Jul, [facility] [address] [id number] [address] [place] [address], [place] [address] Jul, [facility] [address] [id number] [address] [place] [address], [place] [address] Jul, [facility] [address] [id number] [address] [place] [address], [place] [address] Jul, [facility] [address] [id number] [address] [place] [address], [place] [address] Jul, [facility] [address] [id number] [address] [place] [address], [place] [address] Jun, [facility] [address] [id number] [address] [place] [address], [place] [address] Jun, [facility] [address] [id number] [address] [place] [address], [place] [address] Jun, [facility] [address] [id number] [address] [place] [address], [place] [address] 17 Jun, 2013 [facility] [address] [id number] [address] [place] [address], [place] [address] Jun, [facility] [address] [id number] [address] [place] [address], [place] [address] Jun, [facility] [address] [id number] [address] [place] [address], [place] [address] Jun, [facility] [address] [id number] [address] [place] [address], [place] [address] Jun, [facility] [address] [id number] [address] [place] [address], [place] [address] Jun, [facility] [address] [id number] [address] [place] [address], [place] [address] Jun, [facility] [address] [id number] [address] [place] [address], [place] [address] Jun, [facility] [address] [id number] [address] [place] [address], [place] [address] Jun, [facility] [address] [id number] [address] [place] [address], [place] [address] May, [facility] [address] [id number] [address] [place] [address], [place] [address] May, [facility] [address] [id number] [address] [place] [address], [place] [address] May, [facility] [address] [id number] [address] [place] [address], [place] [address] May, [facility] [address] [id number] [address] [place] [address], [place] [address] May, [facility] [address] [id number] [address] [place] [address], [place] [address] May, [facility] [address] [id number] [address] [place] [address], [place] [address] May, [facility] [address] [id number] [address] [place] [address], [place] [address] May, [facility] [address] [id number] [address] [place] [address], [place] [address] May, [facility] [address] [id number] [address] [place] [address], [place] [address] May, [facility] [address] [id number] [address] [place] [address], [place] [address] May, [facility] [address] [id number] [address] [place] [address] May, [facility] [address] [id number] [address] [place] [address], [place] [address] May, [facility] [address] [id number] [address] [place] [address], [place] [address] May, [facility] [address] [id number] [address] [place] [address], [place] [address] May, [facility] [address] [id number] [address] [place] [address], [place] [address] Apr, [facility] [address] [id number] [address] [place] [address], [place] [address] Apr, [facility] [address] [id number] [address] [place] [address], [place] [address] Apr, [facility] [address] [id number] [address] [place] [address], [place] [address] Apr, [facility] [address] [id number] [address] [place] [address], [place] [address] Mar, [facility] [address] [id number] [address] [place] [address], [place] [address] Mar, [facility] [address] [id number] [address] [place] [address], [place] [address] Mar, [facility] [address] [id number] [address] [place] [address] Mar, [facility] [address] [id number] [address] [place] [address] Mar, [facility] [address] [id number] [address] [place] [address], [place] [address] Mar, [facility] [address] [id number] [address] [place] [address], [place] [address] Mar, [facility] [address] [id number] [address] [place] [address], [place] [address] Mar, [facility] [address] [id number] [address] [place] [address], [place] [address] 05 Mar, 2013 [facility] [address] [id number] [address] [place] [address], [place] [address] Mar, [facility] [address] [id number] [address] [place] [address], [place] [address] Mar, [facility] [address] [id number] [address] [place] [address], [place] [address] Mar, [facility] [address] [id number] [address] [place] [address], [place] [address] Feb, [facility] [address] [id number] [address] [place] [address], [place] [address] 18 Jan, 2013 [facility] [address] [id number] [address] [place] [address], [place] [address] 17 Jan, 2012 [facility] [address] [id number] [address] [place] [address], [place] [address] 06 Jan, 2012 [facility] [address] [id number] [address] [place] [address], [place] [address] 04 Jan, 2013 [facility] [address] [id number] [address] [place] [address], [place] [address] 03 Jan, 2013 [facility] [address] [id number] [address] [place] [address], [place] [address] 26 Dec, 2012 [facility] [address] [id number] [address] [place] [address], [place] [address] Dec, [facility] [address] [id number] [address] [place] [address], [place] [address] 18 Dec, 2012 [facility] [address] [id number] [address] [place] [address], [place] [address] 16 Dec, 2012 [facility] [address] [id number] [address] [place] [address], [place] [address] Dec, [facility] [address] [id number] [address] [place] [address], [place] [address] Dec, [facility] [address] [id number] [address] [place] [address], [place] [address] Dec, [facility] [address] [id number] [address] [place] [address], [place] [address] Dec, [facility] [address] [id number] [address] [place] [address], [place] [address] Nov, [facility] [address] [id number] [address] [place] [address], [place] [address] Nov, [facility] [address] [id number] [address] [place] [address], [place] [address] Nov, [facility] [address] [id number] [address] [place] [address], [place] [address] Nov, [facility] [address] [id number] [address] [place] [address], [place] [address] Nov, [facility] [address] [id number] [address] [place] [address], [place] [address] Nov, [facility] [address] [id number] [address] [place] [address], [place] [address] Oct, [facility] [address] [id number] [place] [id number] Oct, [facility] [address] [id number] [place] [id number] Oct, [facility] [address] [id number] [place] [id number] Oct, [facility] [address] [id number] [place] [id number] Oct, [facility] [address] [id number] [address] [place] [address], [place] [address] Oct, [facility] [address] [id number] [address] [place] [address], [place] [address] Oct, [facility] [address] [id number] [address] [place] [address], [place] [address] Oct, [facility] [address] [id number] [address] [place] [address], [place] [address] Oct, [facility] [address] [id number] [address] [place] [address], [place] [address] Oct, [facility] [address] [id number] [address] [place] [address], [place] [address] Oct, [facility] [address] [id number] [address] [place] [address], [place] [address] September, [facility] [address] [id number] [address] [place] [address], [place] [address] Aug, [facility] [address] [id number] [address] [place] [address], [place] [address] Aug, [facility] [address] [id number] [address] [place] [address], [place] [address] Aug, [facility] [address] [id number] [address] [place] [address], [place] [address] Aug, [facility] [address] [id number] [address] [place] [address], [place] [address] Jul, [facility] [address] [id number] [address] [place] [address], [place] [address] Jul, [facility] [address] [id number] [address] [place] [address], [place] [address] Jul, [facility] [address] [id number] [address] [place] [address], [place] [address] Jul, [facility] [address] [id number] [address] [place] [address], [place] [address] Jul, [facility] [address] [id number] [address] [place] [address], [place] [address] Jun, [facility] [address] [id number] [address] [place] [address], [place] [address] Jun, [facility] [address] [id number] [address] [place] [address], [place] [address] 11 Jun, 2012 [facility] [address] [id number] [address] [place] [address], [place] [address] May, [facility] [address] [id number] [address] [place] [address], [place] [address] 24 May, 2012 [facility] [address] [id number] [address] [place] [address], [place] [address] May, [facility] [address] [id number] [address] [place] [address], [place] [address] May, [facility] [address] [id number] [address] [place] [address], [place] [address] May, [facility] [address] [id number] [address] [place] [address], [place] [address] May, [facility] [address] [id number] [address] [place] [address], [place] [address] 18 Apr, 2012 [facility] [address] [id number] [address] [place] [address], [place] [address] 18 Apr, 2012 [facility] [address] [id number] [address] [place] [address], [place] [address] Apr, [facility] [address] [id number] [address] [place] [address], [place] [address] Apr, [facility] [address] [id number] [address] [place] [address], [place] [address] Apr, [facility] [address] [id number] [address] [place] [address], [place] [address] Apr, [facility] [address] [id number] [address] [place] [address], [place] [address] Apr, [facility] [address] [id number] [address] [place] [address], [place] [address] 12 Mar, 2012 [facility] [address] [id number] [address] [place] [address], [place] [address] Mar, [facility] [address] [id number] [address] [place] [address] Mar, [facility] [address] [id number] [address] [place] [address] Mar, [facility] [address] [id number] [address] [place] [phone] Jan, [facility] [address] [id number] [address] [place] [address] Jan, [facility] [address] [id number] [address] [place] [id number] Jan, [facility] [address] [id number] [address] [place] [address] Jan, [facility] [address] [id number] [place] [id number] Dec, [facility] [address] [id number] [address] [place] [address] Dec, [facility] [address] [id number] [place] [id number] Dec, [facility] [address] [id number] [address] [place] [id number] Dec, [facility] [address] [id number] [address] [place] [address] Dec, [facility] [address] [id number] [address] [place] [address] Dec, [facility] [address] [id number] [address] [place] [address] Nov, [facility] [address] [id number] [address] [place] [address] Nov, [facility] [address] [id number] [address] [place] [address] Nov, IMMUNIZATIONS No Known Immunizations SOCIAL HISTORY [...] Medical History Near syncope 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
--- OUTSIDE RECORDS SUMMARY | 2019-11-03 19:36 | XMS REPORT ---
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 Name Role Phone Migration, Doctor Unavailable Unavailable PROBLEMS Type Condition ICD9-CM Code DUE15-PD Code Onset Dates Condition S tatus SNOMED Code Problem Shortness of breath R06.02 Apr, 0 959681832 Problem Unspecified hypothyroidism E03.9 0 48345611 Problem Generalized anxiety disorder F41.1 Apr, 8 0 01076063 Problem Esophageal reflux K21.9 0 24 1972822 Problem Dyslipidemia E78.5 Oct, 0 3709 37171 Problem Osteoarthritis of right knee M17.11 May, 0 0 901259593 Problem Unspecified sleep apnea G47.30 0 52955096 Problem Morbid obesity with BMI of 50.0-59.9, adult Z68.43 Active 674217917 Problem Migraine with aura and without status migrainosu s, not intractable G43.109 Active 6813809 Problem Pulmonary embolus I26.99 13 Oct, 2011 0 01679150 Problem Morbid obesity E66.01 Active 80737 6002 Problem Nonintractable migraine G43.009 08 Oct, 2015 0 249734289 Problem Hypothyroidism E03.9 Active 87266 008 Problem Renal stones N20.0 Active 8433107 7 Problem Coronary artery disease I25.10 Active 82430764 Problem Hyperlipidemia LDL goal <70 E78.5 Ac tive [id number] ALLERGIES No Information ENCOUNTERS Encounter Location Date Diagnosis [facility] [address] [facility] [id number] [address] [place] [address] Nov, [facility] [address] [facility] [id number] [address] [place] [address] Nov, UTI symptoms R39.9 and Morbi d obesity E66.01 [facility] [address] [facility] [id number] [address] [place] [address] Nov, [place] [address] [address] September, [place] [address] [address] September, [place] [address] [address] Aug, Right foot pain M79.671 and Morbid obesity E66.01 [place] [address] [address] Jul, Right foot pain M79.671 and Morbid obesity E66.01 [facility] [place] [address] [address] Jul, Injury of right foot, initia l encounter S99.921A and Morbid obesity E66.01 [place] [address] [address] Jul, Recurrent syncope R55 and Mo rbid obesity E66.01 [place] [address] [address] Jul, [place] [address] [address] Jun, Hematuria, unspecified type R31.9 and BMI 50.0-59.9, adult Z68.43 [place] [address] [address] Jun, [address] [address] 04 Jun, 2018 group home current use of anticoagulant Z 79.01 [facility] [place] [address] [address] May, Ankle pain, right M25.571 an d BMI 50.0-59.9, adult Z68.43 [place] [address] [address] May, [facility] [address] [place] [id number] [place] [address] May, [facility] [address] [address] Apr, [facility] [address] [place] [id number] [place] [address] Apr, [facility] [address] [address] Apr, [facility] [address] [place] [id number] [place] [address] Apr, BMI 50.0-59.9, adult Z68.43 and Weakness R53.1 [facility] [address] [address] Apr, [facility] [address] [address] Apr, Dysuria R30.0 ; Hematuria R3 1.9 ; Renal lithiasis N20.0 and BMI 50.0-59.9, adult Z68.43 [place] [address] [address] Apr, [facility] [address] [address] Apr, [facility] [address] [address] Apr, Hypothyroidism E03.9 [facility] [address] [place] [id number] [address] [place] [address] Apr, Burning with urination R30.0 ; Type 2 diabetes mellitus with diabetic neuropathic arthropathy, 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 ; Acute bilateral low back pain without sciatica M54.5 and BMI 50.0- 59.9, adult Z68.43 [place] [address] [address] Mar, Hypothyroidism E03.9 [facility] [address] [place] [id number] [address] [place] [address] Feb, [facility] [address] [facility] [id number] [address] [place] [address] 15 Jan, 2018 [facility] [address] [place] [id number] [address] [place] [address] 07 Jan, 2018 Acute non-recurrent maxillar y sinusitis J01.00 and BMI 50.0-59.9, adult Z68.43 [facility] [address] [place] [id number] [address] [place] [address] 04 Jan, 2018 Congestion of upper respirat ory tract J98.8 and BMI 50.0-59.9, adult Z68.43 [place] [place] [id number] [address] [place] [address] 24 Dec, 2017 Type 2 diabetes mellitus wit h diabetic neuropathic arthropathy, without long-term current use of insulin E11.610 ; Morbid obesity with BMI of 50.0-59.9, adult Z68.43 ; Hypothyroidism E03.9 ; Coronary artery disease I25.10 ; Hyperlipidemia LDL goal <70 E78.5 ; Right lower quadrant abdominal pain R10.31 and Acute cystitis with hematuria N30.01 [facility] [address] [place] [id number] [address] [place] [address] Dec, Migraine with aura and witho ut status migrainosus, not intractable G43.109 ; Dehydration symptoms R63.8 and BMI 50.0-59.9, adult Z68.43 [facility] [address] [place] [address] Oct, [facility] [address] [address] Oct, [facility] [address] [place] [id number] [address] [place] [address] Oct, [facility] [address] [address] September, [place] [address] [address] September, Type 2 diabetes mellitus wit h diabetic neuropathic arthropathy, without long-term current use of insulin E11.610 ; Hyperlipidemia, unspecified hyperlipidemia type E78.5 ; Personal history of pulmonary embolism Z86.711 ; Coronary artery disease I25.10 and Hypothyroidism E03.9 [place] [address] [address] September, [place] [address] [address] Aug, Type 2 diabetes mellitus wit h [...] without aura and with status migrainosus G43.011 [place] [address] [address] Aug, [place] [address] [address] Aug, [place] [address] [address] Jul, Renal stones N20.0 [facility] [address] [place] [id number] [address] [place] [address] Jun, Back pain M54.9 ; Kidney sto radha N20.0 and BMI 50.0-59.9, adult Z68.43 [place] [address] [address] Jun, [facility] [address] [address] 18 Apr, 2017 [facility] [address] [address] Apr, [place] [address] [address] Apr, Right foot pain M79.671 ; 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, 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 and Arthritis M19.90 [place] [address] [address] 06 Apr, 2017 Gastroesophageal reflux dise ase without esophagitis K21.9 [place] [address] [address] Mar, Hypothyroidism, unspecified E03.9 [place] [address] [address] Feb, [place] [address] [address] 25 Jan, 2017 Cervicalgia of occipito-atla nto-axial region M54.2 and Persistent headaches R51 [place] [address] [address] 20 Jan, 2017 [place] [address] [place] [id number] [place] [address] 12 Jan, 2017 Intractable migraine without aura and with status migrainosus G43.011 ; Cervical spine pain M54.2 ; Hyperlipidemia, unspecified hyperlipidemia type E78.5 ; Hypothyroidism E03.9 and Metabolic syndrome E88.81 [place] [address] [place] [id number] [address] [place] [address] Jan, Hypothyroidism, unspecified E03.9 [place] [address] [place] [id number] [address] [place] [address] Dec, Hypothyroidism, unspecified E03.9 [place] [address] [address] Dec, Hypothyroidism E03.9 [place] [address] [address] Nov, Laceration of left great toe w/o foreign body w/o damage to nail, initial encounter S91.112A [facility] [address] [place] [id number] [address] [place] [address] Oct, Pain in left knee M25.562 an d Arthritis M19.90 [place] [address] [address] Oct, Hypothyroidism, unspecified E03.9 and Hyperlipidemia, unspecified hyperlipidemia type E78.5 [place] [address] [address] Oct, Gastroesophageal reflux dise ase without esophagitis K21.9 [place] [address] [address] 14 Oct, 2016 Metabolic syndrome E88.81 ; Personal history of pulmonary embolism Z86.711 ; Other specified hypothyroidism E03.8 and Hyperlipidemia, unspecified hyperlipidemia type E78.5 [place] [address] [address] 13 Oct, 2017 Personal history of pulmonar y embolism Z86.711 ; Dysuria R30.0 ; Metabolic syndrome E88.81 ; Other specified hypothyroidism E03.8 ; Hyperlipidemia, unspecified hyperlipidemia type E78.5 and Morbid obesity with BMI of 50.0-59.9, adult Z68.43 [place] [address] [place] [id number] [place] [address] September, [facility] [address] [address] September, Wrist pain, left M25.532 and Acute pain of left knee M25.562 [place] [address] [place] [id number] [place] [address] Jul, Dysuria R30.0 [place] [address] [address] 30 Jul, 2016 Dysuria R30.[address] [address] 16 Jul, 2016 Left lower quadrant pain R10 .32 [place] [address] [address] 14 Jul, [address] [address] Jul, Coronary artery disease I25. 10 ; Family history of diabetes mellitus Z83.3 ; Morbid obesity with BMI of 50.0-59.9, adult Z68.43 ; Metabolic syndrome E88.81 ; Personal history of pulmonary embolism Z86.711 ; Gastroesophageal reflux disease without esophagitis K21.9 ; Hypothyroidism, unspecified E03.9 ; Hyperlipidemia, unspecified hyperlipidemia type E78.5 and Left lower quadrant pain R10.32 [facility] [address] [address] 09 Jul, 2016 [facility] [address] [address] 08 Jul, 2016 Morbid obesity with BMI of 5 0.0-59.9, adult Z68.43 [facility] [address] [address] Jul, Generalized abdominal pain R 10.84 [facility] [address] [address] Jun, Muscle strain of right upper back, initial encounter S29.012A [facility] [address] [address] May, Foreign body (FB) in soft ti ssue M79.5 [place] [address] [address] Mar, Hypothyroidism, unspecified E03.9 and Arthritis M19.90 [place] [address] [address] 13 Feb, 2016 Coronary artery disease I25. 10 ; Morbid obesity with BMI of 50.0- 59.9, adult Z68.43 ; Metabolic syndrome E88.81 ; Gastroesophageal reflux disease without esophagitis K21.9 ; Hypothyroidism, unspecified E03.9 ; Personal history of pulmonary embolism Z86.711 and Hyperlipidemia, unspecified hyperlipidemia type E78.5 [place] [address] [address] Feb, [facility] [address] [place] [address] Jan, Acute right-sided thoracic b ack pain M54.[address] [address] Jan, Acute pain of left knee M25. [address] [address] Dec, Dysuria R30.0 ; Metabolic sy ndrome E88.81 ; Acute pain of left knee M25.562 ; Acute cystitis with hematuria N30.01 and Acute left eye pain H57.12 [place] [address] [address] Dec, [place] [address] [address] Dec, [place] [address] [address] Dec, Hypothyroidism, unspecified E03.9 [place] [address] [address] Dec, [place] [address] [address] Nov, Peripheral edema R60.9 and A cute pain of left knee M25.562 [facility] [address] [place] [address], [place] [address] September, [place] [address] [address] September, Metabolic syndrome E88.81 an d Allergy, subsequent encounter T78.40XD [facility] [place] [address] [address] September, Muscle strain T14.8 [place] [address] [address] Aug, Chest pressure R07.89 ; [place] bolic syndrome E88.81 ; Morbid obesity with BMI of 50.0-59.9, adult Z68.43 ; Esophageal reflux 530.81 and Shortness of breath R06.02 [place] [address] [address] Aug, [place] [address] [address] Aug, [place] [address] [address] Aug, Hypothyroidism, unspecified E03.9 [place] [address] [address] Aug, Routine health maintenance Z 00.00 [facility] [address] [address] Aug, [place] [address] [address] Jul, Routine health maintenance Z 00.00 ; Family history of diabetes mellitus Z83.3 ; Family history of cancer Z80.9 and Morbid obesity with BMI of 50.0-59.9, adult Z68.43 [facility] [address] [place] [id number] [address] [place] [address] Jul, Allergic rhinitis J30.9 and Postnasal drip R09.82 [place] [address] [place] [address] [address] 18 Jul, 2015 Influenza J11.1 [facility] [address] [id number] [address] [place] [address] 08 Jul, 2015 Dysuria R30.0 [facility] [address] [id number] [address] [place] [address] Apr, [facility] [address] [facility] [id number] [address] [place] [address] Mar, Acute upper respiratory infe ction, unspecified J06.9 and Hypothyroidism E03.9 [facility] [address] [id number] [address] [place] [address] Mar, [facility] [address] [facility] [id number] [address] [place] [address] Feb, Coronary artery disease I25. 10 [facility] [address] [facility] [id number] [address] [place] [address] Feb, Left foot pain M79.672 [facility] [address] [id number] [address] [place] [address] Jan, UTI (urinary tract infection ) 599.0 [facility] [address] [facility] [id number] [address] [place] [address] Jan, Urinary tract infection, sit e not specified 599.0 [facility] [address] [id number] [address] [place] [address] Jan, Urinary tract infection, sit e not specified 599.0 [facility] [address] [id number] [address] [place] [address] Jan, [facility] [address] [facility] [id number] [address] [place] [address] Dec, Headache 784.0 [facility] [address] [facility] [id number] [address] [place] [address] Dec, Urinary tract infection, sit e not specified 599.0 [facility] [address] [id number] [address] [place] [address] Dec, Urinary tract infection, sit e not specified 599.0 [facility] [address] [id number] [address] [place] [address] Dec, Urinary tract infection, sit e not specified 599.0 [facility] [address] [facility] [id number] [address] [place] [address] Nov, Unspecified sleep apnea 780. 57 ; Encounter for long-term (current) use of anticoagulants V58.61 ; Routine general medical examination at health care facility V70.0 and Arthritis of both knees 716.96 [facility] [address] [facility] [id number] [address] [place] [address] September, Cat bite of hand 882.0 and R ectal bleeding 569.3 [facility] [address] [facility] [id number] [address] [place] [address] Aug, [facility] [address] [id number] [address] [place] [address] Aug, [facility] [address] [facility] [id number] [address] [place] [address] Jul, [facility] [address] [id number] [address] [place] [address] Jul, [facility] [address] [id number] [address] [place] [address] Jul, [facility] [address] [id number] [address] [place] [address] Jul, [facility] [address] [facility] [id number] [address] [place] [address] Jul, [facility] [address] [facility] [id number] [address] [place] [address] Jul, [facility] [address] [facility] [id number] [address] [place] [address] Jul, [facility] [address] [id number] [address] [place] [address], [place] [address] Jul, [facility] [place] [facility] [address] [id number] [address] [place] [address], [place] [address] May, [facility] [place] [facility] [address] [id number] [address] [place] [address], [place] [address] May, [facility] [place] [facility] [address] [id number] [address] [place] [address], [place] [address] May, [facility] [address] [id number] [address] [place] [address], [place] [address] May, [facility] [place] [facility] [address] [id number] [address] [place] [address], [place] [address] May, [facility] [place] [facility] [address] [id number] [address] [place] [address], [place] [address] May, [facility] [place] [facility] [address] [id number] [address] [place] [address], [place] [address] May, [facility] [place] [facility] [address] [id number] [address] [place] [address], [place] [address] Mar, [facility] [place] [facility] [address] [id number] [address] [place] [address], [place] [address] Mar, [facility] [place] [facility] [address] [id number] [address] [place] [address], [place] [address] 08 Jan, 2013 [facility] [place] [facility] [address] [id number] [address] [place] [address], [place] [address] 08 Sep, 2013 [facility] [place] [facility] [address] [id number] [address] [place] [address], [place] [address] 08 Sep, 2013 [facility] [place] [facility] [address] [id number] [address] [place] [address], [place] [address] 08 Jan, 2013 [facility] [place] [facility] [address] [id number] [address] [place] [address], [place] [address] 05 Sep, 2013 [facility] [place] [facility] [address] [id number] [address] [place] [address] [place] [id number] Jan, [facility] [address] [id number] [facility] [place] [address] Dec, [facility] [place] [facility] [address] [id number] [address] [place] [address], [place] [address] Dec, [facility] [address] [id number] [address] [place] [address], [place] [address] Dec, [facility] [place] [facility] [address] [id number] [address] [place] [address], [place] [address] Dec, [facility] [place] [facility] [address] [id number] [address] [place] [address], [place] [address] Dec, [facility] [address] [id number] [address] [place] [address], [place] [address] Dec, [facility] [address] [id number] [address] [place] [address], [place] [address] Dec, [facility] [address] [id number] [address] [place] [address], [place] [address] Dec, [facility] [address] [id number] [address] [place] [address], [place] [address] Dec, [facility] [address] [id number] [address] [place] [address], [place] [address] Dec, [facility] [place] [facility] [address] [id number] [address] [place] [address], [place] [address] Nov, [facility] [place] [facility] [address] [id number] [address] [place] [address], [place] [address] Nov, [facility] [place] [facility] [address] [id number] [address] [place] [address], [place] [address] September, [facility] [place] [facility] [address] [id number] [address] [place] [address], [place] [address] September, [facility] [place] [facility] [address] [id number] [address] [place] [address], [place] [address] September, [facility] [place] [facility] [address] [id number] [facility] [place] [address] September, [facility] [address] [id number] [address] [place] [address], [place] [address] Aug, [facility] [address] [id number] [address] [place] [address], [place] [address] Aug, [facility] [address] [id number] [address] [place] [address], [place] [address] Aug, [facility] [address] [id number] [address] [place] [address], [place] [address] Aug, [facility] [address] [id number] [address] [place] [address], [place] [address] Aug, [facility] [address] [id number] [address] [place] [address], [place] [id number] Aug, [facility] [address] [id number] [address] [place] [address], [place] [id number] Aug, [facility] [address] [id number] [address] [place] [address], [place] [id number] Aug, [facility] [address] [id number] [address] [place] [address], [place] [id number] Aug, [facility] [address] [id number] [address] [place] [address], [place] [id number] Aug, [facility] [address] [id number] [address] [place] [address], [place] [id number] Aug, [facility] [address] [id number] [address] [place] [address], [place] [id number] Aug, [facility] [address] [id number] [address] [place] [address], [place] [id number] Jul, [facility] [address] [id number] [address] [place] [address], [place] [id number] Jul, [facility] [address] [id number] [address] [place] [address], [place] [id number] Jul, [facility] [address] [id number] [address] [place] [address], [place] [id number] Jul, [facility] [address] [id number] [address] [place] [address], [place] [id number] Jul, [facility] [address] [id number] [address] [place] [address], [place] [id number] Jul, [facility] [address] [id number] [address] [place] [address], [place] [id number] Jul, [facility] [address] [id number] [address] [place] [address], [place] [id number] Jul, [facility] [address] [id number] [address] [place] [address], [place] [id number] Jul, [facility] [address] [id number] [address] [place] [address], [place] [id number] Jul, [facility] [address] [id number] [address] [place] [address], [place] [id number] Jun, [facility] [address] [id number] [address] [place] [address], [place] [id number] Jun, [facility] [address] [id number] [address] [place] [address], [place] [id number] Jun, [facility] [address] [id number] [address] [place] [address], [place] [id number] 17 Jun, 2013 [facility] [address] [id number] [address] [place] [address], [place] [address] Jun, [facility] [address] [id number] [address] [place] [address], [place] [address] Jun, [facility] [address] [id number] [address] [place] [address], [place] [address] Jun, [facility] [address] [id number] [address] [place] [address], [place] [address] Jun, [facility] [address] [id number] [address] [place] [address], [place] [address] Jun, [facility] [address] [id number] [address] [place] [address], [place] [address] Jun, [facility] [address] [id number] [address] [place] [address], [place] [address] Jun, [facility] [address] [id number] [address] [place] [address], [place] [address] Jun, [facility] [address] [id number] [address] [place] [address], [place] [address] May, [facility] [address] [id number] [address] [place] [address], [place] [address] May, [facility] [address] [id number] [address] [place] [address], [place] [address] May, [facility] [address] [id number] [address] [place] [address], [place] [address] May, [facility] [address] [id number] [address] [place] [address], [place] [id number] May, [facility] [address] [id number] [address] [place] [address], [place] [address] May, [facility] [address] [id number] [address] [place] [address], [place] [address] May, [facility] [address] [id number] [address] [place] [address], [place] [address] May, [facility] [address] [id number] [address] [place] [address], [place] [address] May, [facility] [address] [id number] [address] [place] [address], [place] [address] May, [facility] [address] [id number] [address] [place] [address], [place] [address] May, [facility] [address] [id number] [address] [place] [phone] May, [facility] [address] [id number] [address] [place] [address], [place] [id number] May, [facility] [address] [id number] [address] [place] [address], [place] [id number] May, [facility] [address] [id number] [address] [place] [address], [place] [id number] May, [facility] [address] [id number] [address] [place] [address], [place] [id number] Apr, [facility] [address] [id number] [address] [place] [address], [place] [address] Apr, [facility] [address] [id number] [address] [place] [address], [place] [id number] Apr, [facility] [address] [id number] [address] [place] [address], [place] [address] Apr, [facility] [address] [id number] [address] [place] [address], [place] [id number] Mar, [facility] [address] [id number] [address] [place] [address], [place] [address] Mar, [facility] [address] [id number] [address] [place] [address], [place] [address] Mar, [facility] [address] [id number] [address] [place] [phone] Mar, [facility] [address] [id number] [address] [place] [phone] Mar, [facility] [address] [id number] [address] [place] [address], [place] [id number] Mar, [facility] [address] [id number] [address] [place] [address], [place] [id number] Mar, [facility] [address] [id number] [address] [place] [address], [place] [address] Mar, [facility] [address] [id number] [address] [place] [address], [place] [id number] 05 Mar, 2013 [facility] [address] [id number] [address] [place] [address], [place] [address] Mar, [facility] [address] [id number] [address] [place] [address], [place] [id number] Mar, [facility] [address] [id number] [address] [place] [address], [place] [address] Mar, [facility] [address] [id number] [address] [place] [address], [place] [phone] Feb, [facility] [address] [id number] [address] [place] [address], [place] [id number] 18 Jan, 2013 [facility] [address] [id number] [address] [place] [address], [place] [address] 17 Jan, 2012 [facility] [address] [id number] [address] [place] [address], [place] [id number] 06 Jan, 2012 [facility] [address] [id number] [address] [place] [address], [place] [id number] 04 Jan, 2013 [facility] [address] [id number] [address] [place] [address], [place] [address] 03 Jan, 2013 [facility] [address] [id number] [address] [place] [address], [place] [id number] 26 Dec, 2012 [facility] [address] [id number] [address] [place] [address], [place] [id number] Dec, [facility] [address] [id number] [address] [place] [address], [place] [id number] 18 Dec, 2012 [facility] [address] [id number] [address] [place] [address], [place] [id number] 16 Dec, 2012 [facility] [address] [id number] [address] [place] [address], [place] [address] Dec, [facility] [address] [id number] [address] [place] [address], [place] [address] Dec, [facility] [address] [id number] [address] [place] [address], [place] [address] Dec, [facility] [address] [id number] [address] [place] [address], [place] [address] Dec, [facility] [address] [id number] [address] [place] [address], [place] [address] Nov, [facility] [address] [id number] [address] [place] [address], [place] [address] Nov, [facility] [address] [id number] [address] [place] [address], [place] [address] Nov, [facility] [address] [id number] [address] [place] [address], [place] [address] Nov, [facility] [address] [id number] [address] [place] [address], [place] [address] Nov, [facility] [address] [id number] [address] [place] [address], [place] [address] Nov, [facility] [address] [id number] [address] [place] [address], [place] [id number] Oct, [facility] [address] [id number] [place] [id number] Oct, [facility] [address] [id number] [place] [id number] Oct, [facility] [address] [id number] [place] [id number] Oct, [facility] [address] [id number] [place] [id number] Oct, [facility] [address] [id number] [address] [place] [address], [place] [address] Oct, [facility] [address] [id number] [address] [place] [address], [place] [address] Oct, [facility] [address] [id number] [address] [place] [address], [place] [address] Oct, [facility] [address] [id number] [address] [place] [address], [place] [phone] Oct, [facility] [address] [id number] [address] [place] [address], [place] [id number] Oct, [facility] [address] [id number] [address] [place] [address], [place] [address] Oct, [facility] [address] [id number] [address] [place] [address], [place] [id number] September, [facility] [address] [id number] [address] [place] [address], [place] [address] Aug, [facility] [address] [id number] [address] [place] [address], [place] [address] Aug, [facility] [address] [id number] [address] [place] [address], [place] [address] Aug, [facility] [address] [id number] [address] [place] [address], [place] [address] Aug, [facility] [address] [id number] [address] [place] [address], [place] [address] Jul, [facility] [address] [id number] [address] [place] [address], [place] [phone] Jul, [facility] [address] [id number] [address] [place] [address], [place] [address] Jul, [facility] [address] [id number] [address] [place] [address], [place] [address] Jul, [facility] [address] [id number] [address] [place] [address], [place] [address] Jul, [facility] [address] [id number] [address] [place] [address], [place] [address] Jun, [facility] [address] [id number] [address] [place] [address], [place] [address] Jun, [facility] [address] [id number] [address] [place] [address], [place] [id number] 11 Jun, 2012 [facility] [address] [id number] [address] [place] [address], [place] [id number] May, [facility] [address] [id number] [address] [place] [address], [place] [address] 24 May, 2012 [facility] [address] [id number] [address] [place] [address], [place] [address] May, [facility] [address] [id number] [address] [place] [address], [place] [address] May, [facility] [address] [id number] [address] [place] [address], [place] [address] May, [facility] [address] [id number] [address] [place] [address], [place] [id number] May, [facility] [address] [id number] [address] [place] [address], [place] [id number] 18 Apr, 2012 [facility] [address] [id number] [address] [place] [address], [place] [address] 18 Apr, 2012 [facility] [address] [id number] [address] [place] [address], [place] [id number] Apr, [facility] [address] [id number] [address] [place] [address], [place] [address] Apr, [facility] [address] [id number] [address] [place] [address], [place] [address] Apr, [facility] [address] [id number] [address] [place] [address], [place] [address] Apr, [facility] [address] [id number] [address] [place] [address], [place] [address] Apr, [facility] [address] [id number] [address] [place] [address], [place] [id number] 12 Mar, 2012 [facility] [address] [id number] [address] [place] [address], [place] [id number] Mar, [facility] [address] [id number] [address] [place] [phone] Mar, [facility] [address] [id number] [address] [place] [id number] Mar, [facility] [address] [id number] [address] [place] [phone] Jan, [facility] [address] [id number] [address] [place] [id number] Jan, [facility] [address] [id number] [address] [place] [id number] Jan, [facility] [address] [id number] [address] [place] [phone] Jan, [facility] [address] [id number] [place] [id number] Dec, [facility] [address] [id number] [address] [place] [phone] Dec, [facility] [address] [id number] [place] [id number] Dec, [facility] [address] [id number] [address] [place] [id number] Dec, [facility] [address] [id number] [address] [place] [phone] Dec, [facility] [address] [id number] [address] [place] [id number] Dec, [facility] [address] [id number] [address] [place] [id number] Nov, [facility] [address] [id number] [address] [place] [phone] Nov, [facility] [address] [id number] [address] [place] [id number] Nov, IMMUNIZATIONS No Known Immunizations SOCIAL HISTORY Never Assessed REASON FOR VISIT PLAN OF CARE VITAL SIGNS Height 64 in 2014-08-07 Weight 319 lbs 2014-08-07 Temperature 98 degrees Fahrenheit 2014-08-07 Heart Rate 78 bpm 2014-08-07 Respiratory Rate 20 2014-08-07 Blood pressure systolic 128 mmHg 2014-08-07 Blood pressure diastolic 66 mmHg 2014-08-07 MEDICATIONS Unknown Medications RESULTS No Results PROCEDURES Procedure Date Ordered Result Body Site EXTREMITY STUDY August 07, 2014 INSTRUCTIONS MEDICATIONS ADMINISTERED No Known Medications [...] Stent placed 08/19/2017 Hospitalization History Syncope- [facility] 12/2017 Hospitalization History heart cath ( 06/23/18-06/25/2018)
--- OUTSIDE RECORDS SUMMARY | 2019-11-03 19:37 | XMS REPORT ---
Author Author Anca Lucero Doctor Organization [facility] Address Unknown Phone Unavailable Care Team Providers Care Security Management Specialist Name Role Phone Migration, Doctor Unavailable Unavailable PROBLEMS Type Condition ICD9-CM Code GVM37-MK Code Onset Dates Condition S tatus SNOMED Code Problem Shortness of breath R06.02 Apr, 0 423570927 Problem Unspecified hypothyroidism E03.9 0 66577280 Problem Generalized anxiety disorder F41.1 Apr, 8 0 08177614 Problem Esophageal reflux K21.9 0 24 3148886 Problem Dyslipidemia E78.5 Oct, 0 3709 50594 Problem Osteoarthritis of right knee M17.11 May, 0 0 366927993 Problem Unspecified sleep apnea G47.30 0 86231668 Problem Morbid obesity with BMI of 50.0-59.9, adult Z68.43 Active 298115314 Problem Migraine with aura and without status migrainosu s, not intractable G43.109 Active 4061655 Problem Pulmonary embolus I26.99 13 Oct, 2011 0 25851889 Problem Morbid obesity E66.01 Active 65449 6002 Problem Nonintractable migraine G43.009 08 Oct, 2015 0 859148475 Problem Hypothyroidism E03.9 Active 78843 008 Problem Renal stones N20.0 Active 8310556 7 Problem Coronary artery disease I25.10 Active 45904319 Problem Hyperlipidemia LDL goal <70 E78.5 Ac tive [id number] ALLERGIES No Information ENCOUNTERS Encounter Location Date Diagnosis [facility] [address] [facility] [id number] [address] [place] [address] Nov, [facility] [address] [facility] [id number] [address] [place] [address] Nov, UTI symptoms R39.9 and Morbi d obesity E66.01 [facility] [address] [facility] [id number] [address] [place] [address] Nov, [place] [address] [address] September, [place] [address] [address] September, [place] [address] [address] Aug, Right foot pain M79.671 and Morbid obesity E66.01 [place] [address] [address] Jul, Right foot pain M79.671 and Morbid obesity E66.01 [facility] [place] [address] [address] Jul, Injury of right foot, initia l encounter S99.921A and Morbid obesity E66.01 [place] [address] [address] Jul, Recurrent syncope R55 and Mo rbid obesity E66.01 [place] [address] [address] Jul, [place] [address] [address] Jun, Hematuria, unspecified type R31.9 and BMI 50.0-59.9, adult Z68.43 [place] [address] [address] Jun, [address] [address] 04 Jun, 2018 longterm current use of anticoagulant Z 79.01 [facility] [place] [address] [address] May, Ankle pain, right M25.571 an d BMI 50.0-59.9, adult Z68.43 [place] [address] [address] May, [facility] [address] [place] [id number] [place] [address] May, [facility] [address] [address] Apr, [facility] [address] [place] [id number] [place] [address] Apr, [facility] [address] [address] Apr, [facility] [address] [place] [id number] [place] [address] Apr, BMI 50.0-59.9, adult Z68.[address] [facility] [address] [address] Apr, [facility] [address] [address] Apr, Dysuria R30.0 ; Hematuria R3 1.9 ; Renal lithiasis N20.0 and BMI 50.0-59.9, adult Z68.43 [place] [address] [address] Apr, [facility] [address] [address] Apr, [facility] [address] [address] Apr, Hypothyroidism E03.9 [facility] [address] [place] [id number] [address] [place] [address] Apr, Burning with urination R30.0 ; Type 2 diabetes mellitus with diabetic neuropathic arthropathy, without long-term current use of insulin E11.610 ; Acute bilateral low back pain without sciatica M54.5 and BMI 50.0- 59.9, adult Z68.43 [place] [address] [address] Mar, Hypothyroidism E03.9 [facility] [address] [place] [id number] [address] [place] [address] Feb, [facility] [address] [facility] [id number] [address] [place] [address] 15 Jan, 2018 [facility] [address] [place] [id number] [address] [place] [address] 07 Jan, 2018 Acute non-recurrent maxillar y sinusitis J01.00 and BMI 50.0-59.9, adult Z68.43 [facility] [address] [place] [id number] [address] [place] [address] 04 Jan, 2018 Congestion of upper respirat ory tract J98.8 and BMI 50.0-59.9, adult Z68.43 [place] [id number] [place] [address] 24 Dec, 2017 Type 2 diabetes mellitus wit h diabetic neuropathic arthropathy, without long-term current use of insulin E11.610 ; Morbid obesity with BMI of 50.0-59.9, adult Z68.43 ; Hypothyroidism E03.9 ; Coronary artery disease I25.10 ; Hyperlipidemia LDL goal <70 E78.5 ; Right lower quadrant abdominal pain R10.31 and Acute cystitis with hematuria N30.01 [facility] [address] [place] [id number] [address] [place] [address] Dec, Migraine with aura and witho ut status migrainosus, not intractable G43.109 ; Dehydration symptoms R63.8 and BMI 50.0-59.9, adult Z68.43 [facility] [address] [place] [address] Oct, [facility] [address] [address] Oct, [facility] [address] [place] [id number] [place] [address] Oct, [facility] [address] [address] September, [place] [address] [address] September, Type 2 diabetes mellitus wit h diabetic neuropathic arthropathy, without long-term current use of insulin E11.610 ; Hyperlipidemia, unspecified hyperlipidemia type E78.5 ; Personal history of pulmonary embolism Z86.711 ; Coronary artery disease I25.10 and Hypothyroidism E03.9 [place] [address] [address] September, [place] [address] [address] Aug, Type 2 diabetes mellitus wit h [...] and with status migrainosus G43.011 [place] [address] [address] Aug, [place] [address] [address] Aug, [place] [address] [address] Jul, Renal stones N20.0 [facility] [address] [place] [id number] [address] [place] [address] Jun, Back pain M54.9 ; Kidney sto radha N20.0 and BMI 50.0-59.9, adult Z68.43 [place] [address] [address] Jun, [facility] [address] [address] 18 Apr, 2017 [facility] [address] [address] Apr, [place] [address] [address] Apr, Right foot pain M79.671 ; Ac kletsel dehe wintun gout involving toe of right foot, 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 and Arthritis M19.90 [place] [address] [address] 06 Apr, 2017 Gastroesophageal reflux dise ase without esophagitis K21.9 [place] [address] [address] Mar, Hypothyroidism, unspecified E03.9 [place] [address] [address] Feb, [place] [address] [address] 25 Jan, 2017 Cervicalgia of occipito-atla nto-axial region M54.2 and Persistent headaches R51 [place] [address] [address] 20 Jan, 2017 [place] [address] [place] [id number] [place] [address] 12 Jan, 2017 Intractable migraine without aura and with status migrainosus G43.011 ; Cervical spine pain M54.2 ; Hyperlipidemia, unspecified hyperlipidemia type E78.5 ; Hypothyroidism E03.9 and Metabolic syndrome E88.81 [place] [address] [address] [place] [id number] [place] [address] Jan, Hypothyroidism, unspecified E03.9 [place] [address] [place] [id number] [address] [place] [address] Dec, Hypothyroidism, unspecified E03.9 [place] [address] [address] Dec, Hypothyroidism E03.9 [place] [address] [address] Nov, Laceration of left great toe w/o foreign body w/o damage to nail, initial encounter S91.112A [facility] [address] [place] [id number] [place] [address] Oct, Pain in left knee M25.562 an d Arthritis M19.90 [place] [address] [address] Oct, Hypothyroidism, unspecified E03.9 and Hyperlipidemia, unspecified hyperlipidemia type E78.5 [place] [address] [address] Oct, Gastroesophageal reflux dise ase without esophagitis K21.9 [place] [address] [address] 14 Oct, 2016 Metabolic syndrome E88.81 ; Personal history of pulmonary embolism Z86.711 ; Other specified hypothyroidism E03.8 and Hyperlipidemia, unspecified hyperlipidemia type E78.5 [place] [address] [address] 13 Oct, 2017 Personal history of pulmonar y embolism Z86.711 ; Dysuria R30.0 ; Metabolic syndrome E88.81 ; Other specified hypothyroidism E03.8 ; Hyperlipidemia, unspecified hyperlipidemia type E78.5 and Morbid obesity with BMI of 50.0-59.9, adult Z68.43 [place] [address] [place] [id number] [place] [address] September, [facility] [address] [address] September, Wrist pain, left M25.532 and Acute pain of left knee M25.562 [place] [address] [place] [id number] [place] [address] Jul, Dysuria R30.0 [place] [address] [address] 30 Jul, 2016 Dysuria R30.[address] [address] 16 Jul, 2016 Left lower quadrant pain R10 .32 [place] [address] [address] 14 Jul, [address] [address] Jul, Coronary artery disease I25. 10 ; Family history of diabetes mellitus Z83.3 ; Morbid obesity with BMI of 50.0-59.9, adult Z68.43 ; Metabolic syndrome E88.81 ; Personal history of pulmonary embolism Z86.711 ; Gastroesophageal reflux disease without esophagitis K21.9 ; Hypothyroidism, unspecified E03.9 ; Hyperlipidemia, unspecified hyperlipidemia type E78.5 and Left lower quadrant pain R10.32 [facility] [address] [address] 09 Jul, 2016 [facility] [address] [address] 08 Jul, 2016 Morbid obesity with BMI of 5 0.0-59.9, adult Z68.43 [facility] [address] [address] Jul, Generalized abdominal pain R 10.84 [facility] [address] [address] Jun, Muscle strain of right upper back, initial encounter S29.012A [facility] [address] [address] May, Foreign body (FB) in soft ti ssue M79.5 [place] [address] [address] Mar, Hypothyroidism, unspecified E03.9 and Arthritis M19.90 [place] [address] [address] 13 Feb, 2016 Coronary artery disease I25. 10 ; Morbid obesity with BMI of 50.0- 59.9, adult Z68.43 ; Metabolic syndrome E88.81 ; Gastroesophageal reflux disease without esophagitis K21.9 ; Hypothyroidism, unspecified E03.9 ; Personal history of pulmonary embolism Z86.711 and Hyperlipidemia, unspecified hyperlipidemia type E78.5 [place] [address] [address] Feb, [facility] [address] [place] [address] Jan, Acute right-sided thoracic b ack pain M54.[address] [address] Jan, Acute pain of left knee M25. [address] [address] Dec, Dysuria R30.0 ; Metabolic sy ndrome E88.81 ; Acute pain of left knee M25.562 ; Acute cystitis with hematuria N30.01 and Acute left eye pain H57.12 [place] [address] [address] Dec, [place] [address] [address] Dec, [place] [address] [address] Dec, Hypothyroidism, unspecified E03.9 [place] [address] [address] Dec, [place] [address] [address] Nov, Peripheral edema R60.9 and A cute pain of left knee M25.562 [facility] [address] [place] [address], [place] [address] September, [place] [address] [address] September, Metabolic syndrome E88.81 an d Allergy, subsequent encounter T78.40XD [facility] [place] [address] [address] September, Muscle strain T14.8 [place] [address] [address] Aug, Chest pressure R07.89 ; [place] bolic syndrome E88.81 ; Morbid obesity with BMI of 50.0-59.9, adult Z68.43 ; Esophageal reflux 530.81 and Shortness of breath R06.02 [place] [address] [address] Aug, [place] [address] [address] Aug, [place] [address] [address] Aug, Hypothyroidism, unspecified E03.9 [place] [address] [address] Aug, Routine health maintenance Z 00.00 [facility] [address] [address] Aug, [place] [address] [address] Jul, Routine health maintenance Z 00.00 ; Family history of diabetes mellitus Z83.3 ; Family history of cancer Z80.9 and Morbid obesity with BMI of 50.0-59.9, adult Z68.43 [facility] [address] [place] [id number] [address] [place] [address] Jul, Allergic rhinitis J30.9 and Postnasal drip R09.82 [place] [address] [place] [id number] [address] 18 Jul, 2015 Influenza J11.1 [facility] [address] [id number] [address] [place] [address] 08 Jul, [address] [facility] [address] [id number] [address] [place] [address] Apr, [facility] [address] [facility] [id number] [address] [place] [address] Mar, Acute upper respiratory infe ction, unspecified J06.[address] [facility] [address] [id number] [address] [place] [address] Mar, [facility] [address] [facility] [id number] [address] [place] [address] Feb, Coronary artery disease I25. 10 [facility] [address] [facility] [id number] [address] [place] [address] Feb, Left foot pain M79.672 [facility] [address] [id number] [address] [place] [address] Jan, UTI (urinary tract infection ) 599.0 [facility] [address] [facility] [id number] [address] [place] [address] Jan, Urinary tract infection, sit e not specified 599.0 [facility] [address] [id number] [address] [place] [address] Jan, Urinary tract infection, sit e not specified 599.0 [facility] [address] [id number] [address] [place] [address] Jan, [facility] [address] [facility] [id number] [address] [place] [address] Dec, Headache 784.0 [facility] [address] [facility] [id number] [address] [place] [address] Dec, Urinary tract infection, sit e not specified 599.0 [facility] [address] [id number] [address] [place] [address] Dec, Urinary tract infection, sit e not specified 599.0 [facility] [address] [id number] [address] [place] [address] Dec, Urinary tract infection, sit e not specified 599.0 [facility] [address] [facility] [id number] [address] [place] [address] Nov, Unspecified sleep apnea 780. 57 ; Encounter for long-term (current) use of anticoagulants V58.61 ; Routine general medical examination at health care facility V70.0 and Arthritis of both knees 716.96 [facility] [address] [facility] [id number] [address] [place] [address] September, Cat bite of hand 882.0 and R ectal bleeding 569.3 [facility] [address] [facility] [id number] [address] [place] [address] Aug, [facility] [address] [id number] [address] [place] [address] Aug, [facility] [address] [facility] [id number] [address] [place] [address] Jul, [facility] [address] [id number] [place] [address] Jul, [facility] [address] [id number] [address] [place] [address] Jul, [facility] [address] [id number] [address] [place] [address] Jul, [facility] [address] [facility] [id number] [address] [place] [address] Jul, [facility] [address] [facility] [id number] [address] [place] [address] Jul, [facility] [address] [facility] [id number] [address] [place] [address] Jul, [facility] [address] [id number] [address] [place] [address], [place] [address] Jul, [facility] [place] [facility] [address] [id number] [address] [place] [address], [place] [address] May, [facility] [place] [facility] [address] [id number] [address] [place] [address], [place] [address] May, [facility] [place] [facility] [address] [id number] [address] [place] [address], [place] [address] May, [facility] [address] [id number] [address] [place] [address], [place] [address] May, [facility] [place] [facility] [address] [id number] [address] [place] [address], [place] [address] May, [facility] [place] [facility] [address] [id number] [address] [place] [address], [place] [address] May, [facility] [place] [facility] [address] [id number] [address] [place] [address], [place] [address] May, [facility] [place] [facility] [address] [id number] [address] [place] [address], [place] [address] Mar, [facility] [place] [facility] [address] [id number] [address] [place] [address], [place] [address] Mar, [facility] [place] [facility] [address] [id number] [address] [place] [address], [place] [address] 08 Jan, 2013 [facility] [place] [facility] [address] [id number] [address] [place] [address], [place] [address] 08 Sep, 2013 [facility] [place] [facility] [address] [id number] [address] [place] [address], [place] [address] 08 Sep, 2013 [facility] [place] [facility] [address] [id number] [address] [place] [address], [place] [address] 08 Jan, 2013 [facility] [place] [facility] [address] [id number] [address] [place] [address], [place] [address] 05 Sep, 2013 [facility] [place] [facility] [address] [id number] [address] [place] [address] [place] [address] Jan, [facility] [address] [id number] [facility] [place] [address] Dec, [facility] [place] [facility] [address] [id number] [address] [place] [address], [place] [address] Dec, [facility] [address] [id number] [address] [place] [address], [place] [address] Dec, [facility] [place] [facility] [address] [id number] [address] [place] [address], [place] [address] Dec, [facility] [place] [facility] [address] [id number] [address] [place] [address], [place] [address] Dec, [facility] [address] [id number] [address] [place] [address], [place] [address] Dec, [facility] [address] [id number] [address] [place] [address], [place] [address] Dec, [facility] [address] [id number] [address] [place] [address], [place] [address] Dec, [facility] [address] [id number] [address] [place] [address], [place] [address] Dec, [facility] [address] [id number] [address] [place] [address], [place] [address] Dec, [facility] [place] [facility] [address] [id number] [address] [place] [address], [place] [address] Nov, [facility] [place] [facility] [address] [id number] [address] [place] [address], [place] [address] Nov, [facility] [place] [facility] [address] [id number] [address] [place] [address], [place] [address] September, [facility] [place] [facility] [address] [id number] [address] [place] [address], [place] [address] September, [facility] [place] [facility] [address] [id number] [address] [place] [address], [place] [address] September, [facility] [address] [id number] [facility] [place] [address] September, [facility] [address] [id number] [address] [place] [address], [place] [address] Aug, [facility] [address] [id number] [address] [place] [address], [place] [address] Aug, [facility] [address] [id number] [address] [place] [address], [place] [address] Aug, [facility] [address] [id number] [address] [place] [address], [place] [address] Aug, [facility] [address] [id number] [address] [place] [address], [place] [address] Aug, [facility] [address] [id number] [address] [place] [address], [place] [address] Aug, [facility] [address] [id number] [address] [place] [address], [place] [address] Aug, [facility] [address] [id number] [address] [place] [address], [place] [address] Aug, [facility] [address] [id number] [address] [place] [address], [place] [address] Aug, [facility] [address] [id number] [address] [place] [address], [place] [address] Aug, [facility] [address] [id number] [address] [place] [address], [place] [address] Aug, [facility] [address] [id number] [address] [place] [address], [place] [address] Aug, [facility] [address] [id number] [address] [place] [address], [place] [address] Jul, [facility] [address] [id number] [address] [place] [address], [place] [address] Jul, [facility] [address] [id number] [address] [place] [address], [place] [address] Jul, [facility] [address] [id number] [address] [place] [address], [place] [address] Jul, [facility] [address] [id number] [address] [place] [address], [place] [address] Jul, [facility] [address] [id number] [address] [place] [address], [place] [address] Jul, [facility] [address] [id number] [address] [place] [address], [place] [address] Jul, [facility] [address] [id number] [address] [place] [address], [place] [address] Jul, [facility] [address] [id number] [address] [place] [address], [place] [address] Jul, [facility] [facility] [address] [id number] [address] [place] [address], [place] [address] Jul, [facility] [address] [id number] [address] [place] [address], [place] [address] Jun, [facility] [address] [id number] [address] [place] [address], [place] [address] Jun, [facility] [address] [id number] [address] [place] [address], [place] [address] Jun, [facility] [address] [id number] [address] [place] [address], [place] [address] 17 Jun, 2013 [facility] [address] [id number] [address] [place] [address], [place] [address] Jun, [facility] [address] [id number] [address] [place] [address], [place] [address] Jun, [facility] [address] [id number] [address] [place] [address], [place] [address] Jun, [facility] [address] [id number] [address] [place] [address], [place] [address] Jun, [facility] [address] [id number] [address] [place] [address], [place] [address] Jun, [facility] [address] [id number] [address] [place] [address], [place] [address] Jun, [facility] [address] [id number] [address] [place] [address], [place] [address] Jun, [facility] [address] [id number] [address] [place] [address], [place] [address] Jun, [facility] [address] [id number] [address] [place] [address], [place] [address] May, [facility] [address] [id number] [address] [place] [address], [place] [address] May, [facility] [address] [id number] [address] [place] [address], [place] [address] May, [facility] [address] [id number] [address] [place] [address], [place] [address] May, [facility] [address] [id number] [address] [place] [address], [place] [address] May, [facility] [address] [id number] [address] [place] [address], [place] [address] May, [facility] [address] [id number] [address] [place] [address], [place] [address] May, [facility] [address] [id number] [address] [place] [address], [place] [address] May, [facility] [address] [id number] [address] [place] [address], [place] [address] May, [facility] [address] [id number] [address] [place] [address], [place] [address] May, [facility] [address] [id number] [address] [place] [address], [place] [address] May, [facility] [address] [id number] [address] [place] [address] May, [facility] [address] [id number] [address] [place] [address], [place] [address] May, [facility] [address] [id number] [address] [place] [address], [place] [address] May, [facility] [address] [id number] [address] [place] [address], [place] [address] May, [facility] [address] [id number] [address] [place] [address], [place] [address] Apr, [facility] [address] [id number] [address] [place] [address], [place] [address] Apr, [facility] [address] [id number] [address] [place] [address], [place] [address] Apr, [facility] [address] [id number] [address] [place] [address], [place] [address] Apr, [facility] [address] [id number] [address] [place] [address], [place] [address] Mar, [facility] [address] [id number] [address] [place] [address], [place] [address] Mar, [facility] [address] [id number] [address] [place] [address], [place] [address] Mar, [facility] [address] [id number] [address] [place] [address] Mar, [facility] [address] [id number] [address] [place] [address] Mar, [facility] [address] [id number] [address] [place] [address], [place] [address] Mar, [facility] [address] [id number] [address] [place] [address], [place] [address] Mar, [facility] [address] [id number] [address] [place] [address], [place] [address] Mar, [facility] [address] [id number] [address] [place] [address], [place] [address] 05 Mar, 2013 [facility] [address] [id number] [address] [place] [address], [place] [address] Mar, [facility] [address] [id number] [address] [place] [address], [place] [address] Mar, [facility] [address] [id number] [address] [place] [address], [place] [address] Mar, [facility] [address] [id number] [address] [place] [address], [place] [address] Feb, [facility] [address] [id number] [address] [place] [address], [place] [address] 18 Jan, 2013 [facility] [address] [id number] [address] [place] [address], [place] [address] 17 Jan, 2012 [facility] [address] [id number] [address] [place] [address], [place] [address] 06 Jan, 2012 [facility] [address] [id number] [address] [place] [address], [place] [address] 04 Jan, 2013 [facility] [address] [id number] [address] [place] [address], [place] [address] 03 Jan, 2013 [facility] [address] [id number] [address] [place] [address], [place] [address] 26 Dec, 2012 [facility] [address] [id number] [address] [place] [address], [place] [address] Dec, [facility] [address] [id number] [address] [place] [address], [place] [address] 18 Dec, 2012 [facility] [address] [id number] [address] [place] [address], [place] [address] 16 Dec, 2012 [facility] [address] [id number] [address] [place] [address], [place] [address] Dec, [facility] [address] [id number] [address] [place] [address], [place] [address] Dec, [facility] [address] [id number] [address] [place] [address], [place] [address] Dec, [facility] [address] [id number] [address] [place] [address], [place] [address] Dec, [facility] [address] [id number] [address] [place] [address], [place] [address] Nov, [facility] [address] [id number] [address] [place] [address], [place] [address] Nov, [facility] [address] [id number] [address] [place] [address], [place] [address] Nov, [facility] [address] [id number] [address] [place] [address], [place] [address] Nov, [facility] [address] [id number] [address] [place] [address], [place] [address] Nov, [facility] [address] [id number] [address] [place] [address], [place] [address] Nov, [facility] [address] [id number] [address] [place] [address], [place] [address] Oct, [facility] [address] [id number] [place] [id number] Oct, [facility] [address] [id number] [place] [id number] Oct, [facility] [address] [id number] [place] [id number] Oct, [facility] [address] [id number] [place] [id number] Oct, [facility] [address] [id number] [address] [place] [address], [place] [address] Oct, [facility] [address] [id number] [address] [place] [address], [place] [address] Oct, [facility] [address] [id number] [address] [place] [address], [place] [address] Oct, [facility] [address] [id number] [address] [place] [address], [place] [address] Oct, [facility] [address] [id number] [address] [place] [address], [place] [address] Oct, [facility] [address] [id number] [address] [place] [address], [place] [address] Oct, [facility] [address] [id number] [address] [place] [address], [place] [address] September, [facility] [address] [id number] [address] [place] [address], [place] [address] Aug, [facility] [address] [id number] [address] [place] [address], [place] [address] Aug, [facility] [address] [id number] [address] [place] [address], [place] [address] Aug, [facility] [address] [id number] [address] [place] [address], [place] [address] Aug, [facility] [address] [id number] [address] [place] [address], [place] [address] Jul, [facility] [address] [id number] [address] [place] [address], [place] [address] Jul, [facility] [address] [id number] [address] [place] [address], [place] [address] Jul, [facility] [address] [id number] [address] [place] [address], [place] [address] Jul, [facility] [address] [id number] [address] [place] [address], [place] [address] Jul, [facility] [address] [id number] [address] [place] [address], [place] [address] Jun, [facility] [address] [id number] [address] [place] [address], [place] [address] Jun, [facility] [address] [id number] [address] [place] [address], [place] [address] 11 Jun, 2012 [facility] [address] [id number] [address] [place] [address], [place] [address] May, [facility] [address] [id number] [address] [place] [address], [place] [address] 24 May, 2012 [facility] [address] [id number] [address] [place] [address], [place] [address] May, [facility] [address] [id number] [address] [place] [address], [place] [address] May, [facility] [address] [id number] [address] [place] [address], [place] [address] May, [facility] [address] [id number] [address] [place] [address], [place] [address] May, [facility] [address] [id number] [address] [place] [address], [place] [address] 18 Apr, 2012 [facility] [address] [id number] [address] [place] [address], [place] [address] 18 Apr, 2012 [facility] [address] [id number] [address] [place] [address], [place] [address] Apr, [facility] [address] [id number] [address] [place] [address], [place] [address] Apr, [facility] [address] [id number] [address] [place] [address], [place] [address] Apr, [facility] [address] [id number] [address] [place] [address], [place] [address] Apr, [facility] [address] [id number] [address] [place] [address], [place] [address] Apr, [facility] [address] [id number] [address] [place] [address], [place] [address] 12 Mar, 2012 [facility] [address] [id number] [address] [place] [address], [place] [address] Mar, [facility] [address] [id number] [address] [place] [id number] Mar, [facility] [address] [id number] [address] [place] [address] Mar, [facility] [address] [id number] [address] [place] [address] Jan, [facility] [address] [id number] [address] [place] [address] Jan, [facility] [address] [id number] [address] [place] [address] Jan, [facility] [address] [id number] [address] [place] [address] Jan, [facility] [address] [id number] [place] [id number] Dec, [facility] [address] [id number] [address] [place] [phone] Dec, [facility] [address] [id number] [place] [id number] Dec, [facility] [address] [id number] [address] [place] [address] Dec, [facility] [address] [id number] [address] [place] [address] Dec, [facility] [address] [id number] [address] [place] [address] Dec, [facility] [address] [id number] [address] [place] [address] Nov, [facility] [address] [id number] [address] [place] [address] Nov, [facility] [address] [id number] [address] [place] [address] Nov, IMMUNIZATIONS No Known Immunizations SOCIAL HISTORY Never Assessed REASON FOR VISIT PLAN OF CARE VITAL SIGNS Height 64 in 2014-07-14 Weight 324.8 lbs 2014-07-14 Temperature 98.6 degrees Fahrenheit 2014-07-14 Heart Rate 88 bpm 2014-07-14 Respiratory Rate 20 2014-07-14 Blood pressure systolic 124 mmHg 2014-07-14 Blood pressure diastolic 62 mmHg 2014-07-14 MEDICATIONS Unknown Medications RESULTS No Results PROCEDURES [...] asthma(493.90) Medical History Near syncope Medical History meterman current use of anticoagulant Medical History Renal [...] Stent placed 08/19/2017 Hospitalization History Syncope- [facility] 12/2017 Hospitalization History heart cath ( 06/23/18-06/25/2018)
--- OUTSIDE RECORDS SUMMARY | 2019-11-03 19:37 | XMS REPORT ---
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 Name Role Phone Migration, Doctor Unavailable Unavailable PROBLEMS Type Condition ICD9-CM Code [id number] Code Onset Dates Condition S tatus SNOMED Code Problem Shortness of breath R06.02 Apr, 0 310368683 Problem Unspecified hypothyroidism E03.9 0 11042052 Problem Generalized anxiety disorder F41.1 Apr, 8 0 33282375 Problem Esophageal reflux K21.9 0 24 9218485 Problem Dyslipidemia E78.5 Oct, 0 3709 30988 Problem Osteoarthritis of right knee M17.11 May, 0 0 261777496 Problem Unspecified sleep apnea G47.30 0 42159680 Problem Morbid obesity with BMI of 50.0-59.9, adult Z68.43 Active 853089361 Problem Migraine with aura and without status migrainosu s, not intractable G43.109 Active 9293219 Problem Pulmonary embolus I26.99 13 Oct, 2011 0 67724674 Problem Morbid obesity E66.01 Active 39581 6002 Problem Nonintractable migraine G43.009 08 Oct, 2015 0 601242322 Problem Hypothyroidism E03.9 Active 52093 008 Problem Renal stones N20.0 Active 8041707 7 Problem Coronary artery disease I25.10 Active 24652610 Problem Hyperlipidemia LDL goal <70 E78.5 Ac tive [id number] ALLERGIES No Information ENCOUNTERS Encounter Location Date Diagnosis [facility] [address] [facility] [id number] [address] [place] [address] Nov, [facility] [address] [facility] [id number] [address] [place] [address] Nov, UTI symptoms R39.9 and Morbi d obesity E66.01 [facility] [address] [facility] [id number] [address] [place] [address] Nov, [place] [address] [address] September, [place] [address] [address] September, [place] [address] [address] Aug, Right foot pain M79.671 and Morbid obesity E66.01 [place] [address] [address] Jul, Right foot pain M79.671 and Morbid obesity E66.01 [facility] [place] [address] [address] Jul, Injury of right foot, initia l encounter S99.921A and Morbid obesity E66.01 [place] [address] [address] Jul, Recurrent syncope R55 and Mo rbid obesity E66.01 [place] [address] [address] Jul, [place] [address] [address] Jun, Hematuria, unspecified type R31.9 and BMI 50.0-59.9, adult Z68.43 [place] [address] [address] Jun, [address] [address] 04 Jun, 2018 retirement current use of anticoagulant Z 79.01 [facility] [place] [address] [address] May, Ankle pain, right M25.571 an d BMI 50.0-59.9, adult Z68.43 [place] [address] [address] May, [facility] [address] [place] [id number] [place] [address] May, [facility] [address] [address] Apr, [facility] [address] [place] [id number] [place] [address] Apr, [facility] [address] [address] Apr, [facility] [address] [place] [id number] [place] [address] Apr, BMI 50.0-59.9, adult Z68.43 and Weakness R53.1 [facility] [address] [address] Apr, [facility] [address] [address] Apr, Dysuria R30.0 ; Hematuria R3 1.9 ; Renal lithiasis N20.0 and BMI 50.0-59.9, adult Z68.43 [place] [address] [address] Apr, [facility] [address] [address] Apr, [facility] [address] [address] Apr, Hypothyroidism E03.9 [facility] [address] [place] [id number] [address] [place] [address] Apr, Burning with urination R30.0 ; Type 2 diabetes mellitus with diabetic neuropathic arthropathy, 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 [id number] [address] [place] [address] 15 Jan, 2018 [facility] [address] [place] [id number] [address] [place] [address] 07 Jan, 2018 Acute non-recurrent maxillar y sinusitis J01.00 and BMI 50.0-59.9, adult Z68.43 [facility] [address] [place] [id number] [address] [place] [address] 04 Jan, 2018 Congestion of upper respirat ory tract J98.8 and BMI 50.0-59.9, adult Z68.43 [place] [id number] [address] [place] [address] 24 Dec, 2017 Type 2 diabetes mellitus wit h diabetic neuropathic arthropathy, without long-term current use of insulin E11.610 ; Morbid obesity with BMI of 50.0-59.9, adult Z68.43 ; Hypothyroidism E03.9 ; Coronary artery disease I25.10 ; Hyperlipidemia LDL goal <70 E78.5 ; Right lower quadrant abdominal pain R10.31 and Acute cystitis with hematuria N30.01 [facility] [address] [place] [id number] [address] [place] [address] Dec, Migraine with aura and witho ut status migrainosus, not intractable G43.109 ; Dehydration symptoms R63.8 and BMI 50.0-59.9, adult Z68.43 [facility] [address] [place] [address] Oct, [facility] [address] [address] Oct, [facility] [address] [place] [id number] [address] [place] [address] Oct, [facility] [address] [address] September, [place] [address] [address] September, Type 2 diabetes mellitus wit h diabetic neuropathic arthropathy, without long-term current use of insulin E11.610 ; Hyperlipidemia, unspecified hyperlipidemia type E78.5 ; Personal history of pulmonary embolism Z86.711 ; Coronary artery disease I25.10 and Hypothyroidism E03.9 [place] [address] [address] September, [place] [address] [address] Aug, Type 2 diabetes mellitus wit h [...] without aura and with status migrainosus G43.011 [place] [address] [address] Aug, [place] [address] [address] Aug, [place] [address] [address] Jul, Renal stones N20.0 [facility] [address] [place] [id number] [address] [place] [address] Jun, Back pain M54.9 ; Kidney sto radha N20.0 and BMI 50.0-59.9, adult Z68.43 [place] [address] [address] Jun, [facility] [address] [address] 18 Apr, 2017 [facility] [address] [address] Apr, [place] [address] [address] Apr, Right foot pain M79.671 ; Ac apache gout involving toe of right foot, 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 and Arthritis M19.90 [place] [address] [address] 06 Apr, 2017 Gastroesophageal reflux dise ase without esophagitis K21.9 [place] [address] [address] Mar, Hypothyroidism, unspecified E03.9 [place] [address] [address] Feb, [place] [address] [address] 25 Jan, 2017 Cervicalgia of occipito-atla nto-axial region M54.2 and Persistent headaches R51 [place] [address] [address] 20 Jan, 2017 [place] [address] [place] [id number] [place] [address] 12 Jan, 2017 Intractable migraine without aura and with status migrainosus G43.011 ; Cervical spine pain M54.2 ; Hyperlipidemia, unspecified hyperlipidemia type E78.5 ; Hypothyroidism E03.9 and Metabolic syndrome E88.81 [place] [address] [place] [id number] [address] [place] [address] Jan, Hypothyroidism, unspecified E03.9 [place] [address] [place] [id number] [address] [place] [address] Dec, Hypothyroidism, unspecified E03.9 [place] [address] [address] Dec, Hypothyroidism E03.9 [place] [address] [address] Nov, Laceration of left great toe w/o foreign body w/o damage to nail, initial encounter S91.112A [facility] [address] [place] [id number] [address] [place] [address] Oct, Pain in left knee M25.562 an d Arthritis M19.90 [place] [address] [address] Oct, Hypothyroidism, unspecified E03.9 and Hyperlipidemia, unspecified hyperlipidemia type E78.5 [place] [address] [address] Oct, Gastroesophageal reflux dise ase without esophagitis K21.9 [place] [address] [address] 14 Oct, 2016 Metabolic syndrome E88.81 ; Personal history of pulmonary embolism Z86.711 ; Other specified hypothyroidism E03.8 and Hyperlipidemia, unspecified hyperlipidemia type E78.5 [place] [address] [address] 13 Oct, 2017 Personal history of pulmonar y embolism Z86.711 ; Dysuria R30.0 ; Metabolic syndrome E88.81 ; Other specified hypothyroidism E03.8 ; Hyperlipidemia, unspecified hyperlipidemia type E78.5 and Morbid obesity with BMI of 50.0-59.9, adult Z68.43 [place] [address] [place] [id number] [address] [place] [address] September, [facility] [address] [address] September, Wrist pain, left M25.532 and Acute pain of left knee M25.562 [place] [address] [place] [id number] [place] [address] Jul, Dysuria R30.0 [place] [address] [address] 30 Jul, 2016 Dysuria R30.[address] [address] 16 Jul, 2016 Left lower quadrant pain R10 .32 [place] [address] [address] 14 Jul, [address] [address] Jul, Coronary artery disease I25. 10 ; Family history of diabetes mellitus Z83.3 ; Morbid obesity with BMI of 50.0-59.9, adult Z68.43 ; Metabolic syndrome E88.81 ; Personal history of pulmonary embolism Z86.711 ; Gastroesophageal reflux disease without esophagitis K21.9 ; Hypothyroidism, unspecified E03.9 ; Hyperlipidemia, unspecified hyperlipidemia type E78.5 and Left lower quadrant pain R10.32 [facility] [address] [address] 09 Jul, 2016 [facility] [address] [address] 08 Jul, 2016 Morbid obesity with BMI of 5 0.0-59.9, adult Z68.43 [facility] [address] [address] Jul, Generalized abdominal pain R 10.84 [facility] [address] [address] Jun, Muscle strain of right upper back, initial encounter S29.012A [facility] [address] [address] May, Foreign body (FB) in soft ti ssue M79.5 [place] [address] [address] Mar, Hypothyroidism, unspecified E03.9 and Arthritis M19.90 [place] [address] [address] 13 Feb, 2016 Coronary artery disease I25. 10 ; Morbid obesity with BMI of 50.0- 59.9, adult Z68.43 ; Metabolic syndrome E88.81 ; Gastroesophageal reflux disease without esophagitis K21.9 ; Hypothyroidism, unspecified E03.9 ; Personal history of pulmonary embolism Z86.711 and Hyperlipidemia, unspecified hyperlipidemia type E78.5 [place] [address] [address] Feb, [facility] [address] [place] [address] Jan, Acute right-sided thoracic b ack pain M54.[address] [address] Jan, Acute pain of left knee M25. [address] [address] Dec, Dysuria R30.0 ; Metabolic sy ndrome E88.81 ; Acute pain of left knee M25.562 ; Acute cystitis with hematuria N30.01 and Acute left eye pain H57.12 [place] [address] [address] Dec, [place] [address] [address] Dec, [place] [address] [address] Dec, Hypothyroidism, unspecified E03.9 [place] [address] [address] Dec, [place] [address] [address] Nov, Peripheral edema R60.9 and A cute pain of left knee M25.562 [facility] [address] [place] [address], [place] [address] September, [place] [address] [address] September, Metabolic syndrome E88.81 an d Allergy, subsequent encounter T78.40XD [facility] [place] [address] [address] September, Muscle strain T14.8 [place] [address] [address] Aug, Chest pressure R07.89 ; [place] bolic syndrome E88.81 ; Morbid obesity with BMI of 50.0-59.9, adult Z68.43 ; Esophageal reflux 530.81 and Shortness of breath R06.02 [place] [address] [address] Aug, [place] [address] [address] Aug, [place] [address] [address] Aug, Hypothyroidism, unspecified E03.9 [place] [address] [address] Aug, Routine health maintenance Z 00.00 [facility] [address] [address] Aug, [place] [address] [address] Jul, Routine health maintenance Z 00.00 ; Family history of diabetes mellitus Z83.3 ; Family history of cancer Z80.9 and Morbid obesity with BMI of 50.0-59.9, adult Z68.43 [facility] [address] [place] [id number] [address] [place] [address] Jul, Allergic rhinitis J30.9 and Postnasal drip R09.82 [place] [address] [place] [address] [place] [address] 18 Jul, 2015 Influenza J11.1 [facility] [address] [id number] [address] [place] [address] 08 Jul, 2015 Dysuria R30.0 [facility] [address] [id number] [address] [place] [address] Apr, [facility] [address] [facility] [id number] [address] [place] [address] Mar, Acute upper respiratory infe ction, unspecified J06.9 and Hypothyroidism E03.9 [facility] [address] [id number] [address] [place] [address] Mar, [facility] [address] [facility] [id number] [address] [place] [address] Feb, Coronary artery disease I25. 10 [facility] [address] [facility] [id number] [address] [place] [address] Feb, Left foot pain M79.672 [facility] [address] [id number] [address] [place] [address] Jan, UTI (urinary tract infection ) 599.0 [facility] [address] [facility] [id number] [address] [place] [address] Jan, Urinary tract infection, sit e not specified 599.0 [facility] [address] [id number] [address] [place] [address] Jan, Urinary tract infection, sit e not specified 599.0 [facility] [address] [id number] [address] [place] [address] Jan, [facility] [address] [facility] [id number] [address] [place] [address] Dec, Headache 784.0 [facility] [address] [facility] [id number] [address] [place] [address] Dec, Urinary tract infection, sit e not specified 599.0 [facility] [address] [id number] [address] [place] [address] Dec, Urinary tract infection, sit e not specified 599.0 [facility] [address] [id number] [address] [place] [address] Dec, Urinary tract infection, sit e not specified 599.0 [facility] [address] [facility] [id number] [address] [place] [address] Nov, Unspecified sleep apnea 780. 57 ; Encounter for long-term (current) use of anticoagulants V58.61 ; Routine general medical examination at health care facility V70.0 and Arthritis of both knees 716.96 [facility] [address] [facility] [id number] [address] [place] [address] September, Cat bite of hand 882.0 and R ectal bleeding 569.3 [facility] [address] [facility] [id number] [address] [place] [address] Aug, [facility] [address] [id number] [address] [place] [address] Aug, [facility] [address] [facility] [id number] [address] [place] [address] Jul, [facility] [address] [id number] [address] [place] [address] Jul, [facility] [address] [id number] [address] [place] [address] Jul, [facility] [address] [id number] [address] [place] [address] Jul, [facility] [address] [facility] [id number] [address] [place] [address] Jul, [facility] [address] [facility] [id number] [address] [place] [address] Jul, [facility] [address] [facility] [id number] [address] [place] [address] Jul, [facility] [address] [id number] [address] [place] [address], [place] [address] Jul, [facility] [place] [facility] [address] [id number] [address] [place] [address], [place] [address] May, [facility] [place] [facility] [address] [id number] [address] [place] [address], [place] [address] May, [facility] [place] [facility] [address] [id number] [address] [place] [address], [place] [address] May, [facility] [address] [id number] [address] [place] [address], [place] [address] May, [facility] [place] [facility] [address] [id number] [address] [place] [address], [place] [address] May, [facility] [place] [facility] [address] [id number] [address] [place] [address], [place] [address] May, [facility] [place] [facility] [address] [id number] [address] [place] [address], [place] [address] May, [facility] [place] [facility] [address] [id number] [address] [place] [address], [place] [address] Mar, [facility] [place] [facility] [address] [id number] [address] [place] [address], [place] [address] Mar, [facility] [place] [facility] [address] [id number] [address] [place] [address], [place] [address] 08 Jan, 2013 [facility] [place] [facility] [address] [id number] [address] [place] [address], [place] [address] 08 Sep, 2013 [facility] [place] [facility] [address] [id number] [address] [place] [address], [place] [address] 08 Sep, 2013 [facility] [place] [facility] [address] [id number] [address] [place] [address], [place] [address] 08 Jan, 2013 [facility] [place] [facility] [address] [id number] [address] [place] [address], [place] [address] 05 Sep, 2013 [facility] [place] [facility] [address] [id number] [address] [place] [address] [place] [address] Jan, [facility] [address] [id number] [facility] [place] [address] Dec, [facility] [place] [facility] [address] [id number] [address] [place] [address], [place] [address] Dec, [facility] [address] [id number] [address] [place] [address], [place] [address] Dec, [facility] [place] [facility] [address] [id number] [address] [place] [address], [place] [address] Dec, [facility] [place] [facility] [address] [id number] [address] [place] [address], [place] [address] Dec, [facility] [address] [id number] [address] [place] [address], [place] [address] Dec, [facility] [address] [id number] [address] [place] [address], [place] [address] Dec, [facility] [address] [id number] [address] [place] [address], [place] [address] Dec, [facility] [address] [id number] [address] [place] [address], [place] [address] Dec, [facility] [address] [id number] [address] [place] [address], [place] [address] Dec, [facility] [place] [facility] [address] [id number] [address] [place] [address], [place] [address] Nov, [facility] [place] [facility] [address] [id number] [address] [place] [address], [place] [address] Nov, [facility] [place] [facility] [address] [id number] [address] [place] [address], [place] [address] September, [facility] [place] [facility] [address] [id number] [address] [place] [address], [place] [address] September, [facility] [place] [facility] [address] [id number] [address] [place] [address], [place] [address] September, [facility] [place] [facility] [address] [id number] [facility] [place] [address] September, [facility] [address] [id number] [address] [place] [address], [place] [address] Aug, [facility] [address] [id number] [address] [place] [address], [place] [address] Aug, [facility] [address] [id number] [address] [place] [address], [place] [address] Aug, [facility] [address] [id number] [address] [place] [address], [place] [id number] Aug, [facility] [address] [id number] [address] [place] [address], [place] [address] Aug, [facility] [address] [id number] [address] [place] [address], [place] [address] Aug, [facility] [address] [id number] [address] [place] [address], [place] [address] Aug, [facility] [address] [id number] [address] [place] [address], [place] [id number] Aug, [facility] [address] [id number] [address] [place] [address], [place] [id number] Aug, [facility] [address] [id number] [address] [place] [address], [place] [id number] Aug, [facility] [address] [id number] [address] [place] [address], [place] [id number] Aug, [facility] [address] [id number] [address] [place] [address], [place] [id number] Aug, [facility] [address] [id number] [address] [place] [address], [place] [address] Jul, [facility] [address] [id number] [address] [place] [address], [place] [id number] Jul, [facility] [address] [id number] [address] [place] [address], [place] [address] Jul, [facility] [address] [id number] [address] [place] [address], [place] [address] Jul, [facility] [address] [id number] [address] [place] [address], [place] [id number] Jul, [facility] [address] [id number] [address] [place] [address], [place] [address] Jul, [facility] [address] [id number] [address] [place] [address], [place] [address] Jul, [facility] [address] [id number] [address] [place] [address], [place] [id number] Jul, [facility] [address] [id number] [address] [place] [address], [place] [address] Jul, [facility] [address] [id number] [address] [place] [address], [place] [id number] Jul, [facility] [address] [id number] [address] [place] [address], [place] [id number] Jun, [facility] [address] [id number] [address] [place] [address], [place] [address] Jun, [facility] [address] [id number] [address] [place] [address], [place] [address] Jun, [facility] [address] [id number] [address] [place] [address], [place] [address] 17 Jun, 2013 [facility] [address] [id number] [address] [place] [address], [place] [address] Jun, [facility] [address] [id number] [address] [place] [address], [place] [address] Jun, [facility] [address] [id number] [address] [place] [address], [place] [address] Jun, [facility] [address] [id number] [address] [place] [address], [place] [address] Jun, [facility] [address] [id number] [address] [place] [address], [place] [address] Jun, [facility] [address] [id number] [address] [place] [address], [place] [address] Jun, [facility] [address] [id number] [address] [place] [address], [place] [address] Jun, [facility] [address] [id number] [address] [place] [address], [place] [address] Jun, [facility] [address] [id number] [address] [place] [address], [place] [address] May, [facility] [address] [id number] [address] [place] [address], [place] [address] May, [facility] [address] [id number] [address] [place] [address], [place] [address] May, [facility] [address] [id number] [address] [place] [address], [place] [address] May, [facility] [address] [id number] [address] [place] [address], [place] [address] May, [facility] [address] [id number] [address] [place] [address], [place] [address] May, [facility] [address] [id number] [address] [place] [address], [place] [address] May, [facility] [address] [id number] [address] [place] [address], [place] [address] May, [facility] [address] [id number] [address] [place] [address], [place] [address] May, [facility] [address] [id number] [address] [place] [address], [place] [address] May, [facility] [address] [id number] [address] [place] [address], [place] [address] May, [facility] [address] [id number] [address] [place] [phone] May, [facility] [address] [id number] [address] [place] [address], [place] [address] May, [facility] [address] [id number] [address] [place] [address], [place] [address] May, [facility] [address] [id number] [address] [place] [address], [place] [address] May, [facility] [address] [id number] [address] [place] [address], [place] [address] Apr, [facility] [address] [id number] [address] [place] [address], [place] [address] Apr, [facility] [address] [id number] [address] [place] [address], [place] [address] Apr, [facility] [address] [id number] [address] [place] [address], [place] [address] Apr, [facility] [address] [id number] [address] [place] [address], [place] [address] Mar, [facility] [address] [id number] [address] [place] [address], [place] [address] Mar, [facility] [address] [id number] [address] [place] [address], [place] [address] Mar, [facility] [address] [id number] [address] [place] [address] Mar, [facility] [address] [id number] [address] [place] [phone] Mar, [facility] [address] [id number] [address] [place] [address], [place] [address] Mar, [facility] [address] [id number] [address] [place] [address], [place] [address] Mar, [facility] [address] [id number] [address] [place] [address], [place] [address] Mar, [facility] [address] [id number] [address] [place] [address], [place] [address] 05 Mar, 2013 [facility] [address] [id number] [address] [place] [address], [place] [address] Mar, [facility] [address] [id number] [address] [place] [address], [place] [address] Mar, [facility] [address] [id number] [address] [place] [address], [place] [address] Mar, [facility] [address] [id number] [address] [place] [address], [place] [address] Feb, [facility] [address] [id number] [address] [place] [address], [place] [address] 18 Jan, 2013 [facility] [address] [id number] [address] [place] [address], [place] [address] 17 Jan, 2012 [facility] [address] [id number] [address] [place] [address], [place] [address] 06 Jan, 2012 [facility] [address] [id number] [address] [place] [address], [place] [address] 04 Jan, 2013 [facility] [address] [id number] [address] [place] [address], [place] [id number] 03 Jan, 2013 [facility] [address] [id number] [address] [place] [address], [place] [address] 26 Dec, 2012 [facility] [address] [id number] [address] [place] [address], [place] [address] Dec, [facility] [address] [id number] [address] [place] [address], [place] [address] 18 Dec, 2012 [facility] [address] [id number] [address] [place] [address], [place] [address] 16 Dec, 2012 [facility] [address] [id number] [address] [place] [address], [place] [address] Dec, [facility] [address] [id number] [address] [place] [address], [place] [address] Dec, [facility] [address] [id number] [address] [place] [address], [place] [address] Dec, [facility] [address] [id number] [address] [place] [address], [place] [address] Dec, [facility] [address] [id number] [address] [place] [address], [place] [address] Nov, [facility] [address] [id number] [address] [place] [address], [place] [address] Nov, [facility] [address] [id number] [address] [place] [address], [place] [address] Nov, [facility] [address] [id number] [address] [place] [address], [place] [address] Nov, [facility] [address] [id number] [address] [place] [address], [place] [address] Nov, [facility] [address] [id number] [address] [place] [address], [place] [address] Nov, [facility] [address] [id number] [address] [place] [address], [place] [address] Oct, [facility] [address] [id number] [place] [id number] Oct, [facility] [address] [id number] [place] [id number] Oct, [facility] [address] [id number] [place] [id number] Oct, [facility] [address] [id number] [place] [id number] Oct, [facility] [address] [id number] [address] [place] [address], [place] [address] Oct, [facility] [address] [id number] [address] [place] [address], [place] [address] Oct, [facility] [address] [id number] [address] [place] [address], [place] [address] Oct, [facility] [address] [id number] [address] [place] [address], [place] [address] Oct, [facility] [address] [id number] [address] [place] [address], [place] [address] Oct, [facility] [address] [id number] [address] [place] [address], [place] [address] Oct, [facility] [address] [id number] [address] [place] [address], [place] [address] September, [facility] [address] [id number] [address] [place] [address], [place] [address] Aug, [facility] [address] [id number] [address] [place] [address], [place] [address] Aug, [facility] [address] [id number] [address] [place] [address], [place] [address] Aug, [facility] [address] [id number] [address] [place] [address], [place] [address] Aug, [facility] [address] [id number] [address] [place] [address], [place] [address] Jul, [facility] [address] [id number] [address] [place] [address], [place] [address] Jul, [facility] [address] [id number] [address] [place] [address], [place] [address] Jul, [facility] [address] [id number] [address] [place] [address], [place] [address] Jul, [facility] [address] [id number] [address] [place] [address], [place] [address] Jul, [facility] [address] [id number] [address] [place] [address], [place] [address] Jun, [facility] [address] [id number] [address] [place] [address], [place] [address] Jun, [facility] [address] [id number] [address] [place] [address], [place] [address] 11 Jun, 2012 [facility] [address] [id number] [address] [place] [address], [place] [address] May, [facility] [address] [id number] [address] [place] [address], [place] [address] 24 May, 2012 [facility] [address] [id number] [address] [place] [address], [place] [address] May, [facility] [address] [id number] [address] [place] [address], [place] [address] May, [facility] [address] [id number] [address] [place] [address], [place] [address] May, [facility] [address] [id number] [address] [place] [address], [place] [address] May, [facility] [address] [id number] [address] [place] [address], [place] [address] 18 Apr, 2012 [facility] [address] [id number] [address] [place] [address], [place] [address] 18 Apr, 2012 [facility] [address] [id number] [address] [place] [address], [place] [address] Apr, [facility] [address] [id number] [address] [place] [address], [place] [address] Apr, [facility] [address] [id number] [address] [place] [address], [place] [address] Apr, [facility] [address] [id number] [address] [place] [address], [place] [address] Apr, [facility] [address] [id number] [address] [place] [address], [place] [address] Apr, [facility] [address] [id number] [address] [place] [address], [place] [address] 12 Mar, 2012 [facility] [address] [id number] [address] [place] [address], [place] [address] Mar, [facility] [address] [id number] [address] [place] [phone] Mar, [facility] [address] [id number] [address] [place] [address] Mar, [facility] [address] [id number] [address] [place] [address] Jan, [facility] [address] [id number] [address] [place] [address] Jan, [facility] [address] [id number] [address] [place] [address] Jan, [facility] [address] [id number] [address] [place] [phone] Jan, [facility] [address] [id number] [place] [id number] Dec, [facility] [address] [id number] [address] [place] [phone] Dec, [facility] [address] [id number] [place] [id number] Dec, [facility] [address] [id number] [address] [place] [address] Dec, [facility] [address] [id number] [address] [place] [id number] Dec, [facility] [address] [id number] [address] [place] [address] Dec, [facility] [address] [id number] [address] [place] [id number] Nov, [facility] [address] [id number] [address] [place] [id number] Nov, [facility] [address] [id number] [address] [place] [phone] Nov, IMMUNIZATIONS No Known Immunizations SOCIAL HISTORY [...] asthma(493.90) Medical History Near syncope 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
--- OUTSIDE RECORDS SUMMARY | 2019-11-03 19:37 | XMS REPORT ---
Author Author Anca Lucero Doctor Organization [facility] Address Unknown Phone Unavailable Care Team Providers Care Physics Department Chair Name Role Phone Migration, Doctor Unavailable Unavailable PROBLEMS Type Condition ICD9-CM Code [id number] Code Onset Dates Condition S tatus SNOMED Code Problem Shortness of breath R06.02 Apr, 0 433145052 Problem Unspecified hypothyroidism E03.9 0 55845123 Problem Generalized anxiety disorder F41.1 Apr, 8 0 76977824 Problem Esophageal reflux K21.9 0 24 8227013 Problem Dyslipidemia E78.5 Oct, 0 3709 84593 Problem Osteoarthritis of right knee M17.11 May, 0 0 039215514 Problem Unspecified sleep apnea G47.30 0 37901866 Problem Morbid obesity with BMI of 50.0-59.9, adult Z68.43 Active 364661571 Problem Migraine with aura and without status migrainosu s, not intractable G43.109 Active 7421594 Problem Pulmonary embolus I26.99 13 Oct, 2011 0 20001758 Problem Morbid obesity E66.01 Active 87279 6002 Problem Nonintractable migraine G43.009 08 Oct, 2015 0 294387668 Problem Hypothyroidism E03.9 Active 90258 008 Problem Renal stones N20.0 Active 3846202 7 Problem Coronary artery disease I25.10 Active 48655207 Problem Hyperlipidemia LDL goal <70 E78.5 Ac tive 45916260 ALLERGIES No Information ENCOUNTERS Encounter Location Date Diagnosis [facility] [address] [facility] [id number] [address] [place] [address] Nov, [facility] [address] [facility] [id number] [address] [place] [address] September, [facility] [address] [facility] [id number] [address] [place] [address] September, [facility] [address] [facility] [id number] [address] [place] [address] Aug, Right foot pain M79.671 and Morbid obesity E66.01 [facility] [address] [facility] [id number] [address] [place] [address] Jul, Right foot pain M79.671 and Morbid obesity E66.01 [facility] [address] [place] [id number] [address] [place] [address] Jul, Injury of right foot, initia l encounter S99.921A and Morbid obesity E66.01 [place] [address] [place] [id number] [place] [address] Jul, Recurrent syncope R55 and Mo rbid obesity E66.01 [place] [address] [facility] [id number] [address] [place] [address] Jul, [place] [address] [address] Jun, Hematuria, unspecified type R31.9 and BMI 50.0-59.9, adult Z68.43 [place] [address] [place] [id number] [address] [place] [address] Jun, [address] [address] 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, 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 [facility] [address] [facility] [id number] [address] [place] [address] May, Ankle pain, right M25.571 an d BMI 50.0-59.9, adult Z68.43 [place] [address] [facility] [id number] [address] [place] [address] May, [place] [address] [place] [id number] [place] [address] May, [place] [address] [place] [id number] [address] [place] [address] Apr, [place] [address] [place] [address] Apr, [facility] [address] [facility] [id number] [address] [place] [address] Apr, [facility] [address] [place] [id number] [place] [address] Apr, BMI 50.0-59.9, adult Z68.43 and Weakness R53.1 [facility] [address] [place] [id number] [place] [address] Apr, [facility] [address] [place] [id number] [address] [place] [address] Apr, Dysuria R30.0 ; Hematuria R3 1.9 ; Renal lithiasis N20.0 and BMI 50.0-59.9, adult Z68.43 [place] [address] [address] Apr, [place] [address] [place] [id number] [place] [address] Apr, [place] [address] [address] Apr, Hypothyroidism E03.9 [place] [address] [place] [id number] [place] [address] 04 Apr, 2018 Burning with urination R30.0 ; Type 2 diabetes mellitus with diabetic neuropathic arthropathy, 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 ; Acute bilateral low back pain without sciatica M54.5 and BMI 50.0- 59.9, adult Z68.43 [place] [address] [place] [id number] [address] [place] [address] Mar, Hypothyroidism E03.9 [facility] [address] [place] [id number] [address] [place] [address] Feb, [facility] [address] [place] [id number] [place] [address] Jan, [place] [address] [place] [id number] [address] [place] [address] 07 Jan, 2018 Acute non-recurrent maxillar y sinusitis J01.00 and BMI 50.0-59.9, adult Z68.43 [facility] [address] [address] 04 Jan, 2018 Congestion of upper respirat ory tract J98.8 and BMI 50.0-59.9, adult Z68.43 [facility] [address] [address] Dec, Type 2 diabetes mellitus wit h diabetic neuropathic arthropathy, without long-term current use of insulin E11.610 ; Morbid obesity with BMI of 50.0-59.9, adult Z68.43 ; Hypothyroidism E03.9 ; Coronary artery disease I25.10 ; Hyperlipidemia LDL goal <70 E78.5 ; Right lower quadrant abdominal pain R10.31 and Acute cystitis with hematuria N30.01 [facility] [address] [address] Dec, Migraine with aura and witho ut status migrainosus, not intractable G43.109 ; Dehydration symptoms R63.8 and BMI 50.0-59.9, adult Z68.43 [place] [address] [address] Oct, [place] [address] [address] Oct, [place] [address] [address] Oct, [place] [address] [address] September, [place] [address] [address] September, Type 2 diabetes mellitus wit h diabetic neuropathic arthropathy, without long-term current use of insulin E11.610 ; Hyperlipidemia, unspecified hyperlipidemia type E78.5 ; Personal history of pulmonary embolism Z86.711 ; Coronary artery disease I25.10 and Hypothyroidism E03.9 [facility] [address] [address] September, [place] [address] [address] Aug, Type 2 diabetes mellitus wit h [...] and with status migrainosus G43.011 [place] [address] [address] Aug, [place] [address] [address] Aug, [place] [address] [address] Jul, Renal stones N20.0 [facility] [address] [address] 19 Jun, 2017 Back pain M54.9 ; Kidney sto radha N20.0 and BMI 50.0-59.9, adult Z68.43 [place] [address] [address] Jun, [place] [address] [address] Apr, [place] [address] [address] Apr, [place] [address] [address] Apr, Right foot pain M79.671 ; Ac ronnie gout involving toe of right foot, 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 and Arthritis M19.90 [facility] [address] [address] 06 Apr, 2017 Gastroesophageal reflux dise ase without esophagitis K21.9 [facility] [address] [place] [id number] [address] [place] [address] 16 Mar, 2017 Hypothyroidism, unspecified E03.9 [place] [address] [address] 11 Feb, 2017 [place] [address] [address] 25 Jan, 2017 Cervicalgia of occipito-atla nto-axial region M54.2 and Persistent headaches R51 [place] [address] [address] 20 Jan, 2017 [place] [address] [address] 12 Jan, 2017 Intractable migraine without aura and with status migrainosus G43.011 ; Cervical spine pain M54.2 ; Hyperlipidemia, unspecified hyperlipidemia type E78.5 ; Hypothyroidism E03.9 and Metabolic syndrome E88.81 [facility] [address] [address] Jan, Hypothyroidism, unspecified E03.9 [place] [address] [address] Dec, Hypothyroidism, unspecified E03.9 [place] [address] [address] Dec, Hypothyroidism E03.9 [place] [address] [address] Nov, Laceration of left great toe w/o foreign body w/o damage to nail, initial encounter S91.112A [facility] [address] [address] Oct, Pain in left knee M25.562 an d Arthritis M19.90 [place] [address] [place] [id number] [address] [place] [address] Oct, Hypothyroidism, unspecified E03.9 and Hyperlipidemia, unspecified hyperlipidemia type E78.5 [place] [address] [place] [id number] [address] [place] [address] Oct, Gastroesophageal reflux dise ase without esophagitis K21.9 [place] [address] [facility] [id number] [address] [place] [address] 14 Oct, 2016 Metabolic syndrome E88.81 ; Personal history of pulmonary embolism Z86.711 ; Other specified hypothyroidism E03.8 and Hyperlipidemia, unspecified hyperlipidemia type E78.5 [place] [address] [place] [id number] [address] [place] [address] 13 Oct, 2016 Personal history of pulmonar y embolism Z86.711 ; Dysuria R30.0 ; Metabolic syndrome E88.81 ; Other specified hypothyroidism E03.8 ; Hyperlipidemia, unspecified hyperlipidemia type E78.5 and Morbid obesity with BMI of 50.0-59.9, adult Z68.43 [place] [address] [place] [id number] [address] [place] [address] September, [facility] [address] [place] [id number] [address] [place] [address] September, Wrist pain, left M25.532 and Acute pain of left knee M25.562 [place] [address] [place] [id number] [address] [place] [address] Jul, Dysuria R30.0 [place] [address] [place] [address] Jul, Dysuria R30.0 [place] [address] [place] [id number] [address] [place] [address] Jul, Left lower quadrant pain R10 .32 [place] [address] [address] 14 Jul, [address] [address] Jul, Coronary artery disease I25. 10 ; [...] [facility] [address] [address] 09 Jul, 2016 [facility] [address] [address] 08 Jul, 2016 Morbid obesity with BMI of 5 0.0-59.9, adult Z68.43 [facility] [address] [address] Jul, Generalized abdominal pain R 10.84 [facility] [address] [address] 02 Jun, 2016 Muscle strain of right upper back, initial encounter S29.012A [facility] [address] [address] May, Foreign body (FB) in soft ti ssue M79.[address] [address] Mar, Hypothyroidism, unspecified E03.9 and Arthritis M19.[address] [address] 13 Feb, 2016 Coronary artery disease I25. 10 ; Morbid obesity with BMI of 50.0- 59.9, adult Z68.43 ; Metabolic syndrome E88.81 ; Gastroesophageal reflux disease without esophagitis K21.9 ; Hypothyroidism, unspecified E03.9 ; Personal history of pulmonary embolism Z86.711 and Hyperlipidemia, unspecified hyperlipidemia type E78.5 [place] [address] [facility] [id number] [address] [place] [address] Feb, [facility] [place] [address] [facility] [id number] [address] [place] [address] 12 Jan, 2016 Acute right-sided thoracic b ack pain M54.6 [place] [address] [facility] [id number] [address] [place] [address] Jan, Acute pain of left knee M25. 562 [place] [address] [facility] [id number] [address] [place] [address] Dec, Dysuria R30.0 ; Metabolic sy ndrome E88.81 ; Acute pain of left knee M25.562 ; Acute cystitis with hematuria N30.01 and Acute left eye pain H57.12 [place] [address] [place] [id number] [address] [place] [address] Dec, [place] [address] [facility] [id number] [address] [place] [address] Dec, [place] [address] [place] [id number] [address] [place] [address] Dec, Hypothyroidism, unspecified E03.9 [place] [address] [place] [id number] [place] [address] Dec, [place] [address] [place] [id number] [address] [place] [address] Nov, Peripheral edema R60.9 and A cute pain of left knee M25.562 [facility] [place] [address] [facility] [id number] [address] [place] [address] September, [place] [address] [place] [id number] [address] [place] [address] September, Metabolic syndrome E88.81 an d Allergy, subsequent encounter T78.40XD [facility] [place] [address] [address] September, Muscle strain T14.8 [place] [address] [address] Aug, Chest pressure R07.89 ; [place] bolic syndrome E88.81 ; Morbid obesity with BMI of 50.0-59.9, adult Z68.43 ; Esophageal reflux 530.81 and Shortness of breath R06.02 [place] [address] [address] Aug, [place] [address] [address] Aug, [place] [address] [address] Aug, Hypothyroidism, unspecified E03.9 [place] [address] [address] Aug, Routine health maintenance Z 00.00 [facility] N [address] [address] Aug, [place] [address] [address] Jul, Routine health maintenance Z 00.00 ; Family history of diabetes mellitus Z83.3 ; Family history of cancer Z80.9 and Morbid obesity with BMI of 50.0-59.9, adult Z68.43 [facility] N [address] [address] Jul, Allergic rhinitis J30.9 and Postnasal drip R09.82 [place] [address] [address] 18 Jul, 2015 Influenza J11.1 [facility] [address] [place] [address] 08 Jul, 2015 Dysuria R30.0 [place] [address] [place] [address] Apr, [facility] [address] [id number] [address] [place] [address] Mar, Acute upper respiratory infe ction, unspecified J06.9 and Hypothyroidism E03.9 [facility] [address] [id number] [address] [place] [address] Mar, [facility] [address] [id number] [address] [place] [address] Feb, Coronary artery disease I25. 10 [facility] [address] [id number] [address] [place] [address] Feb, Left foot pain M79.672 [facility] [address] [id number] [address] [place] [address] Jan, UTI (urinary tract infection ) 599.0 [facility] [address] [id number] [address] [place] [address] Jan, Urinary tract infection, sit e not specified 599.0 [facility] [address] [id number] [address] [place] [address] Jan, Urinary tract infection, sit e not specified 599.0 [facility] [address] [id number] [address] [place] [address] Jan, [facility] [address] [id number] [address] [place] [address] Dec, Headache 784.0 [facility] [address] [id number] [address] [place] [address] Dec, Urinary tract infection, sit e not specified 599.0 [facility] [address] [id number] [address] [place] [address] Dec, Urinary tract infection, sit e not specified 599.0 [facility] [address] [id number] [address] [place] [address] Dec, Urinary tract infection, sit e not specified 599.0 [facility] [address] [id number] [address] [place] [address] Nov, Unspecified sleep apnea 780. 57 ; Encounter for long-term (current) use of anticoagulants V58.61 ; Routine general medical examination at health care facility V70.0 and Arthritis of both knees 716.96 [facility] [address] [id number] [address] [place] [address] September, Cat bite of hand 882.0 and R ectal bleeding 569.3 [facility] [address] [id number] [address] [place] [address] Aug, [facility] [address] [id number] [address] [place] [address] Aug, [facility] [address] [id number] [address] [place] [address] Jul, [facility] [address] [id number] [address] [place] [address] Jul, [facility] [address] [id number] [address] [place] [address] Jul, [facility] [address] [id number] [address] [place] [address] Jul, [facility] [address] [id number] [address] [place] [address] Jul, [facility] [address] [id number] [address] [place] [address] Jul, [facility] [address] [id number] [address] [place] [address] Jul, [facility] [address] [id number] [address] [place] [address] Jul, [facility] [address] [id number] [address] [place] [address] May, [facility] [address] [id number] [address] [place] [address], [place] [address] May, [facility] [address] [id number] [address] [place] [address], [place] [address] May, [facility] [address] [id number] [address] [place] [address], [place] [address] May, [facility] [address] [id number] [address] [place] [address], [place] [address] May, [facility] [address] [id number] [address] [place] [address], [place] [address] May, [facility] [address] [id number] [address] [place] [address], [place] [address] May, [facility] [address] [id number] [address] [place] [address], [place] [address] Mar, [facility] [address] [id number] [address] [place] [address], [place] [address] Mar, [facility] [address] [id number] [address] [place] [address], [place] [address] 08 Jan, 2013 [facility] [address] [id number] [address] [place] [address], [place] [address] 08 Jan, 2013 [facility] [address] [id number] [address] [place] [address], [place] [address] 08 Jan, 2013 [facility] [address] [id number] [address] [place] [address], [place] [address] 08 Jan, 2013 [facility] [address] [id number] [address] [place] [address], [place] [address] 05 Jan, 2013 [facility] [address] [id number] [address] [place] [address], [place] [address] 05 Jan, 2013 [facility] [address] [id number] [address] [place] [address], [place] [address] Dec, [facility] [address] [id number] [address] [place] [address], [place] [address] Dec, [facility] [address] [id number] [address] [place] [address], [place] [address] Dec, [facility] [address] [id number] [address] [place] [address], [place] [address] Dec, [facility] [address] [id number] [address] [place] [address], [place] [address] Dec, [facility] [address] [id number] [address] [place] [address], [place] [address] Dec, [facility] [address] [id number] [address] [place] [address], [place] [address] Dec, [facility] [address] [id number] [address] [place] [address], [place] [address] Dec, [facility] [address] [id number] [address] [place] [address], [place] [address] Dec, [facility] [address] [id number] [address] [place] [address], [place] [address] Dec, [facility] [address] [id number] [address] [place] [address], [place] [address] Nov, [facility] [address] [id number] [address] [place] [address], [place] [address] Nov, [facility] [address] [id number] [address] [place] [address], [place] [address] September, [facility] [address] [id number] [address] [place] [address], [place] [address] September, [facility] [address] [id number] [address] [place] [address], [place] [address] September, [facility] [address] [id number] [address] [place] [address], [place] [address] September, [facility] [address] [id number] [address] [place] [address], [place] [address] Aug, [facility] [address] [id number] [address] [place] [address], [place] [address] Aug, [facility] [address] [id number] [address] [place] [address], [place] [address] Aug, [facility] [address] [id number] [address] [place] [address], [place] [address] Aug, [facility] [address] [id number] [address] [place] [address], [place] [address] Aug, [facility] [address] [id number] [address] [place] [address], [place] [address] Aug, [facility] [address] [id number] [address] [place] [address], [place] [address] Aug, [facility] [address] [id number] [address] [place] [address], [place] [address] Aug, [facility] [address] [id number] [address] [place] [address], [place] [address] Aug, [facility] [address] [id number] [address] [place] [address], [place] [address] Aug, [facility] [address] [id number] [address] [place] [address], [place] [address] Aug, [facility] [address] [id number] [address] [place] [address], [place] [address] Aug, [facility] [address] [id number] [address] [place] [address], [place] [address] Jul, [facility] [address] [id number] [address] [place] [address], [place] [address] Jul, [facility] [address] [id number] [address] [place] [address], [place] [address] Jul, [facility] [address] [id number] [address] [place] [address], [place] [address] Jul, [facility] [address] [id number] [address] [place] [address], [place] [address] 06 Jul, 2013 [facility] [address] [id number] [address] [place] [address], [place] [address] 06 Jul, 2013 [facility] [address] [id number] [address] [place] [address], [place] [address] Jul, [facility] [address] [id number] [address] [place] [address], [place] [address] Jul, [facility] [address] [id number] [address] [place] [address], [place] [address] Jul, [facility] [address] [id number] [address] [place] [address], [place] [address] Jul, [facility] [address] [id number] [address] [place] [address], [place] [address] Jun, [facility] [address] [id number] [address] [place] [address], [place] [address] Jun, [facility] [address] [id number] [address] [place] [address], [place] [address] Jun, [facility] [address] [id number] [address] [place] [address], [place] [address] 17 Jun, 2013 [facility] [address] [id number] [address] [place] [address], [place] [address] Jun, [facility] [address] [id number] [address] [place] [address], [place] [address] Jun, [facility] [address] [id number] [address] [place] [address], [place] [address] Jun, [facility] [address] [id number] [address] [place] [address], [place] [address] Jun, [facility] [address] [id number] [address] [place] [address], [place] [address] Jun, [facility] [address] [id number] [address] [place] [address], [place] [address] Jun, [facility] [address] [id number] [address] [place] [address], [place] [address] Jun, [facility] [address] [id number] [address] [place] [address], [place] [address] Jun, [facility] [address] [id number] [address] [place] [address], [place] [address] May, [facility] [address] [id number] [address] [place] [address], [place] [address] May, [facility] [address] [id number] [address] [place] [address], [place] [address] May, [facility] [address] [id number] [address] [place] [address], [place] [address] May, [facility] [address] [id number] [address] [place] [address], [place] [address] May, [facility] [address] [id number] [address] [place] [address], [place] [address] May, [facility] [address] [id number] [address] [place] [address], [place] [address] May, [facility] [address] [id number] [address] [place] [address], [place] [address] May, [facility] [address] [id number] [address] [place] [address], [place] [address] May, [facility] [address] [id number] [address] [place] [address], [place] [address] May, [facility] [address] [id number] [address] [place] [address], [place] [address] May, [facility] [address] [id number] [address] [place] [address], [place] [address] May, [facility] [address] [id number] [address] [place] [address], [place] [address] May, [facility] [address] [id number] [address] [place] [address], [place] [address] May, [facility] [address] [id number] [address] [place] [address], [place] [address] May, [facility] [address] [id number] [address] [place] [address], [place] [address] Apr, [facility] [address] [id number] [address] [place] [address], [place] [address] Apr, [facility] [address] [id number] [address] [place] [address], [place] [address] Apr, [facility] [address] [id number] [address] [place] [address], [place] [address] Apr, [facility] [address] [id number] [address] [place] [address], [place] [address] Mar, [facility] [address] [id number] [address] [place] [address], [place] [address] Mar, [facility] [address] [id number] [address] [place] [address], [place] [address] Mar, [facility] [address] [id number] [address] [place] [address], [place] [address] Mar, [facility] [address] [id number] [address] [place] [address], [place] [address] Mar, [facility] [address] [id number] [address] [place] [address], [place] [address] Mar, [facility] [address] [id number] [address] [place] [address], [place] [address] Mar, [facility] [address] [id number] [address] [place] [address], [place] [address] Mar, [facility] [address] [id number] [address] [place] [address], [place] [address] Mar, [facility] [address] [id number] [address] [place] [address], [place] [address] 05 Mar, 2013 [facility] [address] [id number] [address] [place] [address], [place] [address] 05 Mar, 2013 [facility] [address] [id number] [address] [place] [address], [place] [address] 05 Mar, 2013 [facility] [address] [id number] [address] [place] [address], [place] [address] Feb, [facility] [address] [id number] [address] [place] [address], [place] [address] 18 Jan, 2013 [facility] [address] [id number] [address] [place] [address], [place] [address] 17 Jan, 2012 [facility] [address] [id number] [address] [place] [address], [place] [address] 06 Jan, 2013 [facility] [address] [id number] [address] [place] [address], [place] [address] 04 Jan, 2013 [facility] [address] [id number] [address] [place] [address], [place] [address] Jan, [facility] [address] [id number] [address] [place] [address], [place] [address] Dec, [facility] [address] [id number] [address] [place] [address], [place] [address] Dec, [facility] [address] [id number] [address] [place] [address], [place] [address] Dec, [facility] [address] [id number] [address] [place] [address], [place] [address] Dec, [facility] [address] [id number] [address] [place] [address], [place] [address] Dec, [facility] [address] [id number] [address] [place] [address], [place] [address] Dec, [facility] [address] [id number] [address] [place] [address], [place] [address] Dec, [facility] [address] [id number] [address] [place] [address], [place] [address] Dec, [facility] [address] [id number] [address] [place] [address], [place] [address] Nov, [facility] [address] [id number] [address] [place] [address], [place] [address] Nov, [facility] [address] [id number] [address] [place] [address], [place] [address] Nov, [facility] [address] [id number] [address] [place] [address], [place] [address] Nov, [facility] [address] [id number] [address] [place] [address], [place] [address] Nov, [facility] [address] [id number] [address] [place] [address], [place] [address] Nov, [facility] [address] [id number] [address] [place] [address], [place] [address] Oct, [facility] [place] [address] [id number] [id number] Oct, [facility] [place] [address] [id number] [place] [id number] Oct, [facility] [place] [address] [id number] [place] [id number] Oct, [facility] [place] [address] [id number] [place] [id number] Oct, [facility] [address] [id number] [address] [place] [address], [place] [address] Oct, [facility] [address] [id number] [address] [place] [address], [place] [address] Oct, [facility] [address] [id number] [address] [place] [address], [place] [address] Oct, [facility] [address] [id number] [address] [place] [address], [place] [address] Oct, [facility] [address] [id number] [address] [place] [address], [place] [address] Oct, [facility] [address] [id number] [address] [place] [address], [place] [address] 05 Oct, 2012 [facility] [address] [id number] [address] [place] [address], [place] [address] September, [facility] [address] [id number] [address] [place] [address], [place] [address] Aug, [facility] [address] [id number] [address] [place] [address], [place] [address] Aug, [facility] [address] [id number] [address] [place] [address], [place] [address] Aug, [facility] [address] [id number] [address] [place] [address], [place] [address] Aug, [facility] [address] [id number] [address] [place] [address], [place] [address] Jul, [facility] [address] [id number] [address] [place] [address], [place] [address] Jul, [facility] [address] [id number] [address] [place] [address], [place] [address] Jul, [facility] [address] [id number] [address] [place] [address], [place] [address] Jul, [facility] [address] [id number] [address] [place] [address], [place] [address] Jul, [facility] [address] [id number] [address] [place] [address], [place] [address] Jun, [facility] [address] [id number] [address] [place] [address], [place] [address] Jun, [facility] [address] [id number] [address] [place] [address], [place] [address] Jun, [facility] [address] [id number] [address] [place] [address], [place] [address] May, [facility] [address] [id number] [address] [place] [address], [place] [address] May, [facility] [address] [id number] [address] [place] [address], [place] [address] May, [facility] [address] [id number] [address] [place] [address], [place] [address] May, [facility] [address] [id number] [address] [place] [address], [place] [address] May, [facility] [address] [id number] [address] [place] [address], [place] [address] May, [facility] [address] [id number] [address] [place] [address], [place] [address] Apr, [facility] [address] [id number] [address] [place] [address], [place] [address] Apr, [facility] [address] [id number] [address] [place] [address], [place] [address] Apr, [facility] [address] [id number] [address] [place] [address], [place] [address] Apr, [facility] [address] [id number] [address] [place] [address], [place] [address] Apr, [facility] [address] [id number] [address] [place] [address], [place] [address] Apr, [facility] [address] [id number] [address] [place] [address], [place] [address] Apr, [facility] [address] [id number] [address] [place] [address], [place] [address] Mar, [facility] [address] [id number] [address] [place] [address], [place] [address] Mar, [facility] [address] [id number] [address] [place] [address], [place] [address] Mar, [facility] [address] [id number] [address] [place] [address], [place] [address] Mar, [facility] [address] [id number] [address] [place] [address] Jan, [facility] [address] [id number] [address] [place] [address] Jan, [facility] [address] [id number] [address] [place] [address] Jan, [facility] [address] [id number] [address] [place] [address] Jan, [facility] [address] [id number] [place] [id number] Dec, [facility] [address] [id number] [address] [place] [address] Dec, [facility] [address] [id number] [place] [id number] Dec, [facility] [address] [facility] [id number] [address] [place] [address] Dec, [facility] [address] [id number] [address] [place] [address] Dec, [facility] [address] [id number] [address] [place] [address] Dec, [facility] [address] [id number] [address] [place] [address] Nov, [facility] [address] [facility] [id number] [address] [place] [address] Nov, [facility] [address] [facility] [id number] [address] [place] [address] Nov, IMMUNIZATIONS No Known Immunizations SOCIAL HISTORY Never Assessed REASON FOR VISIT PLAN OF CARE VITAL SIGNS Height 64 in 2014-07-17 Weight 328.41 lbs 2014-07-17 Temperature 98.2 degrees Fahrenheit 2014-07-17 Heart Rate 86 bpm 2014-07-17 Respiratory Rate 20 2014-07-17 Blood pressure systolic 128 mmHg 2014-07-17 Blood pressure diastolic 80 mmHg 2014-07-17 MEDICATIONS Unknown Medications RESULTS No Results PROCEDURES Procedure Date Ordered Result Body Site INJ TRIAMCINOLONE ACETONIDE 10 MG July 17, 2014 INSTRUCTIONS MEDICATIONS ADMINISTERED No Known Medications [...] Stent placed 08/19/2017 Hospitalization History Syncope- [facility] 12/2017 Hospitalization History heart cath ( 06/23/18-06/25/2018)
--- NOTE | 2019-11-03 19:39 | ED General ---
General Chief Complaint: General Problems/Pain Stated Complaint: SOA,DIZZINESS Source of Information: Patient Exam Limitations: No Limitations History of Present Illness Date Seen by Provider: Nov 03, 2019 Time Seen by Provider: 19:37 Initial Comments to ER by private vehicle with reports of sudden onset of general malaise and dizziness nausea and lightheadedness. She suspects she might have a urinary tract infection. This began when she was in the car on the right home from [place] about 30 minutes ago. No pain. She did donate blood earlier this afternoon just before going to [place]. Severity: Moderate Associated Systoms: Nausea/Vomiting Allergies and Home Medications Allergies Coded Allergies: methylprednisolone (Verified Allergy, Mild, 11/05/18) Penicillins (Unverified Allergy, Unknown, 11/05/18) atorvastatin (Verified Allergy, Unknown, 11/05/18) isosorbide (Verified Allergy, Unknown, 11/05/18) ketorolac (Verified Allergy, Unknown, ITCHING, 11/05/18) promethazine (Unverified Allergy, Unknown, hallucinations, 11/05/18) venom-honey bee (Unverified Allergy, Unknown, 11/05/18) Uncoded Allergies: TAPE (Allergy, Unknown, 08/16/13) Home Medications Acetaminophen 500 Mg Tablet, 500 MG PO BID PRN for PAIN-MILD, (Reported) Albuterol Sulfate 18 Gm Hfa.aer.ad, 1 PUFF INH Q4H PRN for SHORTNESS OF BREATH, (Reported) Albuterol Sulfate 2.5 Mg/3 Ml Vial.neb, 2.5 MG NEB Q4H PRN for SHORTNESS OF BREATH, (Reported) Aspirin 81 Mg Tablet.dr, 81 MG PO DAILY Prescribed by: REAGAN MCNEILL on 08/20/17 0800 Cefuroxime Axetil 250 Mg Tablet, 250 MG PO BID Prescribed by: SHALOM RAMÍREZ on 11/13/182139 Clopidogrel Bisulfate 75 Mg Tablet, 75 MG PO DAILY Prescribed by: REAGAN MCNEILL on 08/20/17 0800 Hydrocodone Bit/Acetaminophen 1 Each Tablet, 1 TAB PO Q6H, (Reported) Hydrocodone Bit/Acetaminophen 1 Ea Tablet, 1 EACH PO Q6H PRN for CHEST PAIN Prescribed by: ALEJANDRA MARTIN on 10/05/18 184 Levothyroxine Sodium 150 Mcg Tablet, 150 MCG PO HS, (Reported) Nitrofurantoin Monohyd/M-Cryst 100 Mg Capsule, 100 MG PO BID Prescribed by: NORIS DOHERTY on 11/05/182008 Nitroglycerin 0.4 Mg Tab.subl, 0.4 MG SL PRN 1 TAB SUBLINGUAL Q5MIN. RETURN TO THE ER IF YOUR CHEST PAIN CONTINUES OR IS UNRESPLVED. Prescribed by: SHALOM RAMÍREZ on 08/20/17 1350 Omeprazole 20 Mg Capsule.dr, 20 MG PO DAILY, (Reported) LAST FILLED #30 04-15-17 Ondansetron 8 Mg Tab.rapdis, 8 MG PO Q6H Prescribed by: NORIS DOHERTY on 11/05/182008 Warfarin Sodium 5 Mg Tablet, 5 MG PO DAILY, (Reported) Patient Home Medication List Home Medication List Reviewed: Yes Review of Systems Review of Systems Constitutional: see HPI EENTM: see HPI Respiratory: no symptoms reported Cardiovascular: no symptoms reported Gastrointestinal: nausea Genitourinary: no symptoms reported Musculoskeletal: no symptoms reported Skin: no symptoms reported Psychiatric/Neurological: No Symptoms Reported Past Cjelokm-Jpdohh-Wlgcip Hx Patient Social History Type Used: Cigarettes 2nd Hand Smoke Exposure: Yes Recent Hopitalizations: No Immunizations Up To Date Tetanus Booster (TDap): Less than 5yrs PED Vaccines UTD: Yes Date of Pneumonia Vaccine: Aug 17, 2012 Date of Influenza Vaccine: May 06, 2012 Seasonal Allergies Seasonal Allergies: No Past Medical History Surgeries: Yes Appendectomy, Cardiac, Coronary Stent, Gallbladder, Hysterectomy, Orthopedic, Thyroidectomy Respiratory: Yes (HAS CPAP--DOES NOT USE ON REGULAR BASIS; P.E. X2) Asthma, Pulmonary Embolism, Sleep Apnea Currently Using CPAP: No Currently Using BIPAP: No Cardiac: Yes (P.E. 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 Sexually Transmitted Disease: No HIV/AIDS: No Genitourinary: Yes Bladder Infection, Kidney Stones Gastrointestinal: Yes (S/P GENI) Gastroesophageal Reflux, Chronic Constipation, Gall Bladder Disease Musculoskeletal: Yes Degenerate Disk Disease, Arthritis, Back Injury, Chronic Back Pain, Spasms Endocrine: Yes (MORBID OBESITY; THYROIDECTOMY) Hypothyroidsim HEENT: Yes Loss of Vision: Bilateral Hearing Impairment: Denies Cancer: No Colon Psychosocial: No Integumentary: No Blood Disorders: Yes (BLOOD CLOTS-DVT/P.E.'S) Adverse Reaction/Blood Tranf: No Family Medical History Arthritis G8 SISTER Cardiovascular disease 03 FATHER Colon cancer 03 MOTHER Completed stroke 03 MOTHER Hypertension 03 MOTHER G8 BROTHER Myocardial infarction 03 MOTHER Thyroid disease G8 SISTER Physical Exam Vital Signs Vital Signs - First Documented 11/03/19 19:30 Temp 37.0 Pulse 90 Resp 25 B/P (MAP) 130/59 (82) Pulse Ox 96 O2 Delivery Room Air Capillary Refill : Height, Weight, BMI Height: 5'2.00" Weight: 297lbs. 8.0oz. 134.696733vq; 56.00 BMI Method:Stated General Appearance: No Apparent Distress, WD/WN, Chronically ill, Obese Eyes: Bilateral Eye Normal Inspection, Bilateral Eye PERRL, Bilateral Eye EOMI Neck: Full Range of Motion, Normal Inspection Respiratory: Normal Breath Sounds, No Accessory Muscle Use, No Respiratory Distress Cardiovascular: Regular Rate, Rhythm, Normal Peripheral Pulses Gastrointestinal: Normal Bowel Sounds, Non Tender, Soft Extremity: Normal Capillary Refill, Normal Inspection, Normal Range of Motion Neurologic/Psychiatric: Alert, Oriented x3 Skin: Normal Color, Warm/Dry Progress/Results/Core Measures Suspected Sepsis SIRS Temperature: Pulse: Respiratory Rate: Laboratory Tests 11/03/19 19:35: White Blood Count 11.5H Blood Pressure / Mean: Laboratory Tests 11/03/19 19:35: Platelet Count 232 Results/Orders Lab Results Laboratory Tests Test 11/03/19 19:31 11/03/19 19:35 Range/Units Urine Color YELLOW Urine Clarity SL CLOUDY Urine pH 5.5 5-9 Urine Specific [place] >=1.030 1.016-1.022 Urine Protein NEGATIVE NEGATIVE Urine Glucose (UA) NEGATIVE NEGATIVE Urine Ketones NEGATIVE NEGATIVE Urine Nitrite NEGATIVE NEGATIVE Urine Bilirubin NEGATIVE NEGATIVE Urine Urobilinogen 0.2 < = 1.0 MG/DL Urine Leukocyte Esterase NEGATIVE NEGATIVE Urine RBC (Auto) 2+ H NEGATIVE Urine RBC 0-2 /HPF Urine WBC 0-2 /HPF Urine Squamous Epithelial Cells 5-10 /HPF Urine Crystals NONE /LPF Urine Bacteria MODERATE H /HPF Urine Casts NONE /LPF Urine Mucus SMALL H /LPF Urine Culture Indicated YES White Blood Count 11.5 H 4.3-11.0 10^3/uL Red Blood Count 4.64 4.35-5.85 10^6/uL Hemoglobin 13.8 11.5-16.0 G/DL Hematocrit 43 35-52 % Mean Corpuscular Volume 94 80-99 FL Mean Corpuscular Hemoglobin 30 25-34 PG Mean Corpuscular Hemoglobin Concent 32 32-36 G/DL Red Cell Distribution Width 15.4 H 10.0-14.5 % Platelet Count 232 130-400 10^3/uL Mean Platelet Volume 10.8 H 7.4-10.4 FL Neutrophils (%) (Auto) 71 42-75 % Lymphocytes (%) (Auto) 21 12-44 % Monocytes (%) (Auto) 7 0-12 % Eosinophils (%) (Auto) 1 0-10 % Basophils (%) (Auto) 0 0-10 % Neutrophils # (Auto) 8.1 H 1.8-7.8 X 10^3 Lymphocytes # (Auto) 2.5 1.0-4.0 X 10^3 Monocytes # (Auto) 0.8 0.0-1.0 X 10^3 Eosinophils # (Auto) 0.1 0.0-0.3 10^3/uL Basophils # (Auto) 0.0 0.0-0.1 10^3/uL My Orders Orders - SHALOM RAMÍREZ [employer] Cbc With Automated Diff (11/03/19 19:07) Comprehensive Metabolic Panel (11/03/19 19:07) Troponin I (11/03/19 19:07) BNP (11/03/19 19:07) Ekg Tracing (11/03/19 19:07) Chest 1 View, Ap/Pa Only (11/03/19 19:07) Ed Iv/Invasive Line Start (11/03/19 19:07) Lactated Ringers (Lr 1000 Ml Iv Solution (11/03/19 19:45) Ondansetron Injection (Zofran Injectio (11/03/19 19:45) Ua Culture If Indicated (11/03/19 19:36) Urine Culture (11/03/19 19:31) Medications Given in ED Current Medications Medications Dose Ordered Sig/Marcio Route Start Time Stop Time Status Last Admin Dose Admin Ondansetron HCl 8 mg ONCE ONCE IVP 11/03/19 19:45 11/03/19 19:46 DC 11/03/19 19:42 8 MG Vital Signs/I&O 11/03/19 19:30 Temp 37.0 Pulse 90 Resp 25 B/P (MAP) 130/59 (82) Pulse Ox 96 O2 Delivery Room Air Capillary Refill : Departure Impression Primary Impression: Volume depletion Additional Impressions: Nausea Light-headed feeling Disposition: HOME, SELF-CARE Condition: Stable Departure-Patient Inst. Decision time for Depature: 19:39 Referrals: NO,LOCAL PHYSICIAN (PCP) Primary Care Physician ANDRES HU MD (Family) Primary Care Physician Patient Instructions: NO INSTRUCTIONS GIVEN Add. Discharge Instructions: 1. Follow-up with your doctor next week 2. Return to ER for any concerns 3. All discharge instructions reviewed with patient and/or family. Voiced understanding. SHALOM RAMÍREZ [employer] Nov 03, 2019 19:39
--- OUTSIDE RECORDS SUMMARY | 2019-11-03 19:44 | XMS REPORT ---
Author Author Anca Lucero Doctor Organization [facility] Address Unknown Phone Unavailable Care Team Providers Care Advanced [employer] Architect Name Role Phone Migration, Doctor Unavailable Unavailable PROBLEMS Type Condition ICD9-CM Code [id number] Code Onset Dates Condition S tatus SNOMED Code Problem Esophageal reflux K21.9 Active 24 8559355 Problem Dyslipidemia E78.5 12 Oct, 2017 Active 3709 55137 Problem Unspecified hypothyroidism E03.9 Act hernesto 92968172 Problem Generalized anxiety disorder F41.1 Apr, 200 8 Active 47197727 Problem Shortness of breath R06.02 Apr, Active 723936486 Problem Pulmonary embolus I26.99 13 Oct, 2011 Active 92970474 Problem Nonintractable migraine G43.009 08 Oct, 2015 Act hernesto 535455942 Problem Pre-diabetes R73.03 Active 9724080 02 Problem Morbid obesity with BMI of 50.0-59.9, adult Z68.43 Active 966471660 Problem Hypothyroidism E03.9 Active 87556 008 Problem Morbid obesity E66.01 Active 69376 6002 Problem Unspecified sleep apnea G47.30 Active 04823631 Problem Personal history of pulmonary embolism Z86.711 Active 366585679 Problem Osteoarthritis of right knee M17.11 13 May, 201 0 Active 988312095 Problem Renal stones N20.0 Active 4286726 7 Problem Coronary artery disease I25.10 Active 36752611 Problem Hyperlipidemia LDL goal <70 E78.5 Ac tive 68100487 Problem Migraine with aura and without status migrainosu s, not intractable G43.109 Active 4250223 ALLERGIES No Information ENCOUNTERS Encounter Location Date Diagnosis [facility] [address] [facility] [id number] [address] [place] [address] 08 Nov, 2019 [facility] [address] [facility] [id number] [address] [place] [address] September, [facility] [address] [facility] [id number] [address] [place] [address] September, [facility] [address] [id number] [address] [place] [address] September, [facility] [address] [id number] [address] [place] [address] Aug, [facility] [address] [id number] [address] [place] [address] Aug, History of recurrent UTIs Z8 7.440 and Personal history of pulmonary embolism Z86.711 [facility] [address] [id number] [address] [place] [address] Jul, History of recurrent UTIs Z8 7.440 [facility] [address] [id number] [address] [place] [id number] 07 Jun, 2019 Personal history of pulmonar y embolism Z86.711 [facility] [address] [id number] [address] [place] [address] 07 Jun, 2019 Personal history of pulmonar y embolism Z86.711 [facility] [address] [id number] [address] [place] [address] May, [facility] [address] [id number] [address] May, 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 and Dizziness R42 [facility] [address] [id number] [address] [place] [address] Apr, Non-recurrent acute suppurat hernesto otitis media of both ears without spontaneous rupture of tympanic membranes H66.003 [place] [address] [id number] [address] [place] [address] Feb, Pre-diabetes R73.03 and Hype rlipidemia LDL goal <70 E78.5 [facility] [address] [id number] [address] [place] [address] Feb, [place] [address] [facility] [id number] [address] [place] [address] Feb, [facility] [address] [facility] [id number] [address] [place] [address] Jan, [facility] [address] [facility] [id number] [address] [place] [address] Jan, [facility] [address] [facility] [id number] [address] [place] [address] 18 Jan, 2019 [facility]counter for [email or web address] Z00.00 ; Hyperlipidemia LDL goal <70 E78.5 ; Coronary artery disease I25.10 ; Hypothyroidism E03.9 ; Osteoarthritis of right knee M17.11 ; Morbid obesity with BMI of 50.0-59.9, adult Z68.43 and Esophageal reflux K21.9 [facility] [address] [facility] [id number] [address] [place] [address] 13 Jan, 2019 Dysuria R30.0 and Hematuria, unspecified type R31.9 [facility] [address] [facility] [id number] [address] [place] [address] Jan, Hematuria, unspecified type R31.9 [facility] [address] [facility] [id number] [address] [place] [address] Dec, Hematuria, unspecified type R31.9 [facility] [address] [facility] [id number] [address] [place] [address] Nov, Hematuria, unspecified type R31.[address] [id number] [address] Nov, Other microscopic hematuria R31.29 [facility] [address] [facility] [id number] [address] [place] [address] Nov, Vaginal gena B37.3 ; Othe r microscopic hematuria R31.29 and Morbid obesity E66.01 [facility] [address] [facility] [id number] [address] [place] [address] Nov, [facility] [address] [facility] [id number] [address] [place] [address] Nov, [facility] [address] [facility] [id number] [address] [place] [address] Nov, UTI symptoms R39.9 and Morbi d obesity E66.01 [facility] [address] [facility] [id number] [address] [place] [address] Nov, [facility] [address] [facility] [id number] [address] [place] [address] September, [facility] [address] [facility] [id number] [address] [place] [address] September, [facility] [address] [facility] [id number] [place] [address] Aug, Right foot pain M79.671 and Morbid obesity E66.01 [facility] [address] [facility] [id number] [address] [place] [address] Jul, Right foot pain M79.671 and Morbid obesity E66.01 [facility] [address] [facility] [id number] [address] [place] [address] Jul, Injury of right foot, initia l encounter S99.921A and Morbid obesity E66.01 [facility] [address] [facility] [id number] [address] [place] [address] Jul, Recurrent syncope R55 and Mo rbid obesity E66.01 [facility] [address] [facility] [id number] [address] [place] [address] Jul, [facility] [address] [facility] [id number] [address] [place] [address] Jun, Hematuria, unspecified type R31.9 and BMI 50.0-59.9, adult Z68.43 [facility] [address] [facility] [id number] [address] [place] [address] 07 Jun, 2018 [id number] [place] [address] Jun, [facility] current use of ant icoagulant Z79.01 [facility] [address] [address] May, Ankle pain, right M25.571 an d BMI 50.0-59.9, adult Z68.43 [place] [address] [address] May, [place] [address] [address] May, [place] [address] [address] Apr, [place] [address] [address] Apr, [place] [address] [address] Apr, [facility] [address] [place] [id number] [place] [address] Apr, BMI 50.0-59.9, adult Z68.43 and Weakness R53.1 [place] [address] [address] Apr, [facility] [address] [address] Apr, Dysuria R30.0 ; Hematuria R3 1.9 ; Renal lithiasis N20.0 and BMI 50.0-59.9, adult Z68.43 [place] [address] [address] Apr, [place] [address] [address] Apr, [place] [address] [address] Apr, Hypothyroidism E03.9 [place] [address] [address] 04 Apr, 2018 Burning with urination R30.0 ; Type 2 diabetes mellitus with diabetic neuropathic arthropathy, without long-term current use of insulin E11.610 ; Acute bilateral low back pain without sciatica M54.5 and BMI 50.0- 59.9, adult Z68.[address] [address] 02 Mar, 2018 Hypothyroidism E03.9 [place] [address] [address] Feb, [facility] [place] [address] [address] 15 Jan, [address] [address] 07 Jan, 2018 Acute non-recurrent maxillar y sinusitis J01.00 and BMI 50.0-59.9, adult Z68.43 [facility] [place] [address] [address] 04 Jan, 2018 Congestion of upper respirat ory tract J98.8 and BMI 50.0-59.9, adult Z68.[address] [address] Dec, Type 2 diabetes mellitus wit h diabetic neuropathic arthropathy, without long-term current use of insulin E11.610 ; Morbid obesity with BMI of 50.0-59.9, adult Z68.43 ; Hypothyroidism E03.9 ; Coronary artery disease I25.10 ; Hyperlipidemia LDL goal <70 E78.5 ; Right lower quadrant abdominal pain R10.31 and Acute cystitis with hematuria N30.01 [facility] WALK IN [address] [address] Dec, Migraine with aura and witho ut status migrainosus, not intractable G43.109 ; Dehydration symptoms R63.8 and BMI 50.0-59.9, adult Z68.43 [place] [address] [facility] [id number] [address] [place] [address] Oct, [place] [address] [place] [id number] [place] [address] Oct, [place] [address] [facility] [id number] [address] [place] [address] Oct, [place] [address] [address] September, [place] [address] [place] [id number] [place] [address] September, Type 2 diabetes mellitus wit h diabetic neuropathic arthropathy, without long-term current use of insulin E11.610 ; Hyperlipidemia, unspecified hyperlipidemia type E78.5 ; Personal history of pulmonary embolism Z86.711 ; Coronary artery disease I25.10 and Hypothyroidism E03.[address] [address] September, [place] [address] [place] [address] Aug, Type 2 diabetes mellitus wit h [...] and with status migrainosus G43.011 [place] [address] [place] [address] Aug, [place] [address] [address] Aug, [place] [address] [place] [id number] [address] [place] [address] Jul, Renal stones N20.0 [facility] [address] [place] [id number] [address] [place] [address] Jun, Back pain M54.9 ; Kidney sto radha N20.0 and BMI 50.0-59.9, adult Z68.43 [facility] [address] [address] Jun, [facility] [address] [address] Apr, [place] [address] [address] Apr, [place] [address] [address] Apr, Right foot pain M79.671 ; Ac ronnie gout involving toe of right foot, 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 and Arthritis M19.90 [place] [address] [address] 06 Apr, 2017 Gastroesophageal reflux dise ase without esophagitis K21.9 [place] [address] [address] Mar, Hypothyroidism, unspecified E03.9 [place] [address] [address] Feb, [place] [address] [address] Jan, Cervicalgia of occipito-atla nto-axial region M54.2 and Persistent headaches R51 [place] [address] [address] Jan, [place] [address] [address] 12 Jan, 2017 Intractable migraine without aura and with status migrainosus G43.011 ; Cervical spine pain M54.2 ; Hyperlipidemia, unspecified hyperlipidemia type E78.5 ; Hypothyroidism E03.9 and Metabolic syndrome E88.81 [place] [address] [place] [id number] [address] [place] [address] Jan, Hypothyroidism, unspecified E03.9 [place] [address] [address] Dec, Hypothyroidism, unspecified E03.9 [place] [address] [address] Dec, Hypothyroidism E03.9 [place] [address] [address] Nov, Laceration of left great toe w/o foreign body w/o damage to nail, initial encounter S91.112A [facility] [address] [address] Oct, Pain in left knee M25.562 an d Arthritis M19.90 [place] [address] [address] Oct, Hypothyroidism, unspecified E03.9 and Hyperlipidemia, unspecified hyperlipidemia type E78.5 [place] [address] [address] Oct, Gastroesophageal reflux dise ase without esophagitis K21.9 [place] [address] [address] 14 Oct, 2016 Metabolic syndrome E88.81 ; Personal history of pulmonary embolism Z86.711 ; Other specified hypothyroidism E03.8 and Hyperlipidemia, unspecified hyperlipidemia type E78.5 [place] [address] [place] [id number] [address] [place] [address] 13 Oct, 2016 Personal history of pulmonar y embolism Z86.711 ; Dysuria R30.0 ; Metabolic syndrome E88.81 ; Other specified hypothyroidism E03.8 ; Hyperlipidemia, unspecified hyperlipidemia type E78.5 and Morbid obesity with BMI of 50.0-59.9, adult Z68.43 [place] [address] [address] September, [facility] [place] [address] [place] [id number] [address] [place] [address] September, Wrist pain, left M25.532 and Acute pain of left knee M25.562 [place] [address] [place] [id number] [address] [place] [address] Jul, Dysuria R30.0 [place] [address] [place] [id number] [place] [address] Jul, Dysuria R30.0 [place] [address] [place] [id number] [place] [address] Jul, Left lower quadrant pain R10 .32 [place] [address] [place] [id number] [address] [place] [address] Jul, [place] [address] [place] [id number] [place] [address] Jul, Coronary artery disease I25. 10 ; [...] [facility] [place] [id number] [address] [place] [address] Jul, [facility] [place] [id number] [address] [place] [address] 08 Jul, 2016 Morbid obesity with BMI of 5 0.0-59.9, adult Z68.43 [facility] [place] [id number] [address] [place] [address] Jul, Generalized abdominal pain R 10.84 [facility] [place] [id number] [address] [place] [address] Jun, Muscle strain of right upper back, initial encounter S29.012A [facility] [address] [place] [id number] [place] [address] May, Foreign body (FB) in soft ti ssue M79.5 [place] [address] [place] [id number] [address] [place] [address] Mar, Hypothyroidism, unspecified E03.9 and Arthritis M19.90 [place] [address] [address] Feb, Coronary artery disease I25. 10 ; Morbid obesity with BMI of 50.0- 59.9, adult Z68.43 ; Metabolic syndrome E88.81 ; Gastroesophageal reflux disease without esophagitis K21.9 ; Hypothyroidism, unspecified E03.9 ; Personal history of pulmonary embolism Z86.711 and Hyperlipidemia, unspecified hyperlipidemia type E78.5 [place] [address] [address] Feb, [facility] [place] [address] [address] Jan, Acute right-sided thoracic b ack pain M54.6 [place] [address] [address] Jan, Acute pain of left knee M25. 562 [place] [address] [address] Dec, Dysuria R30.0 ; Metabolic sy ndrome E88.81 ; Acute pain of left knee M25.562 ; Acute cystitis with hematuria N30.01 and Acute left eye pain H57.12 [place] [address] [address] Dec, [place] [address] [place] [id number] [place] [address] Dec, [place] [address] [address] Dec, Hypothyroidism, unspecified E03.9 [facility] [address] [id number] [address] [place] [address] Dec, [place] [address] [facility] [id number] [address] [place] [address] Nov, Peripheral edema R60.9 and A cute pain of left knee M25.562 [facility] [place] [address] [facility] [id number] [address] [place] [address] September, [place] [address] [facility] [id number] [address] [place] [address] September, Metabolic syndrome E88.81 an d Allergy, subsequent encounter T78.40XD [facility] WALK [facility] [place] [address] [facility] [id number] [address] [place] [address] September, Muscle strain T14.8 [place] [address] [facility] [id number] [address] [place] [address] Aug, Chest pressure R07.89 ; [place] bolic syndrome E88.81 ; Morbid obesity with BMI of 50.0-59.9, adult Z68.43 ; Esophageal reflux 530.81 and Shortness of breath R06.02 [place] [address] [facility] [id number] [address] [place] [address] Aug, [place] [address] [facility] [id number] [address] [place] [address] Aug, [place] [address] [facility] [id number] [address] [place] [address] Aug, Hypothyroidism, unspecified E03.9 [place] [address] [facility] [id number] [address] [place] [address] Aug, Routine health maintenance Z 00.00 [facility] WALK [facility] [place] [address] [facility] [id number] [address] [place] [address] Aug, [place] [address] [facility] [id number] [address] [place] [address] 31 Jul, 2016 Routine health maintenance Z 00.00 ; Family history of diabetes mellitus Z83.3 ; Family history of cancer Z80.9 and Morbid obesity with BMI of 50.0-59.9, adult Z68.43 [facility] WALK IN [facility] [address] [place] [id number] [address] [place] [address] 28 Jul, 2015 Allergic rhinitis J30.9 and Postnasal drip R09.82 [place] [address] [place] [address] 18 Jul, 2015 Influenza J11.1 [facility] WALK IN [facility] [address] [address] 08 Jul, 2015 Dysuria R30.0 [place] [address] [address] Apr, [place] [address] [address] Mar, Acute upper respiratory infe ction, unspecified J06.9 and Hypothyroidism E03.9 [place] [address] [place] [id number] [address] [place] [address] Mar, [place] [address] [place] [id number] [address] [place] [address] Feb, Coronary artery disease I25. 10 [place] [address] [place] [id number] [address] [place] [address] Feb, Left foot pain M79.672 [place] [address] [place] [id number] [address] [place] [address] Jan, UTI (urinary tract infection ) 599.0 [place] [address] [place] [id number] [address] [place] [address] Jan, Urinary tract infection, sit e not specified 599.0 [place] [address] [place] [id number] [address] [place] [address] Jan, Urinary tract infection, sit e not specified 599.0 [facility] [address] [id number] [address] [place] [address] Jan, [facility] [address] [id number] [address] [place] [address] Dec, Headache 784.0 [facility] [address] [facility] [id number] [address] [place] [address] Dec, Urinary tract infection, sit e not specified 599.0 [facility] [address] [id number] [address] [place] [address] Dec, Urinary tract infection, sit e not specified 599.0 [facility] [address] [facility] [id number] [address] [place] [address] Dec, Urinary tract infection, sit e not specified 599.0 [facility] [address] [facility] [id number] [address] [place] [address] Nov, Unspecified sleep apnea 780. 57 ; Encounter for long-term (current) use of anticoagulants V58.61 ; Routine general medical examination at health care facility V70.0 and Arthritis of both knees 716.96 [facility] [address] [facility] [id number] [address] [place] [id number] September, Cat bite of hand 882.0 and R ectal bleeding 569.3 [facility] [address] [id number] [address] [place] [id number] Aug, [facility] [address] [id number] [address] [place] [phone] Aug, [facility] [address] [id number] [address] [place] [id number] Jul, [facility] [address] [facility] [id number] [address] [place] [id number] Jul, [facility] [address] [facility] [id number] [address] [place] [phone] Jul, [facility] [address] [id number] [address] [place] [address], [place] [id number] Jul, [facility] [address] [id number] [address] [place] [address], [place] [id number] Jul, [facility] [address] [id number] [address] [place] [address], [place] [id number] Jul, [facility] [address] [id number] [address] [place] [address], [place] [id number] Jul, [facility] [address] [id number] [address] [place] [address], [place] [id number] Jul, [facility] [address] [id number] [address] [place] [address], [place] [id number] May, [facility] [address] [id number] [address] [place] [address], [place] [id number] May, [facility] [address] [id number] [address] [place] [address], [place] [id number] May, [facility] [address] [id number] [address] [place] [address], [place] [id number] May, [facility] [address] [id number] [place] [address], [place] [address] May, [facility] [address] [id number] [address] [place] [address], [place] [address] May, [facility] [address] [id number] [address] [place] [address], [place] [address] May, [facility] [address] [id number] [address] [place] [address], [place] [address] Mar, [facility] [address] [id number] [address] [place] [address], [place] [address] Mar, [facility] [address] [id number] [address] [place] [address], [place] [address] Jan, [facility] [address] [id number] [address] [place] [address], [place] [address] Jan, [facility] [address] [id number] [address] [place] [address], [place] [address] Jan, 2013 [facility] [address] [id number] [address] [place] [address], [place] [address] Jan, [facility] [address] [id number] [address] [place] [address], [place] [address] Jan, 2013 [facility] [address] [id number] [address] [place] [address], [place] [address] Jan, [facility] [address] [id number] [address] [place] [address], [place] [address] Dec, [facility] [address] [id number] [address] [place] [address], [place] [address] Dec, [facility] [address] [id number] [address] [place] [address], [place] [address] Dec, [facility] [address] [id number] [address] [place] [address], [place] [address] Dec, [facility] [address] [id number] [address] [place] [address], [place] [address] Dec, [facility] [address] [id number] [address] [place] [address], [place] [address] Dec, [facility] [address] [id number] [address] [place] [address], [place] [address] Dec, [facility] [address] [id number] [address] [place] [address], [place] [address] Dec, [facility] [address] [id number] [address] [place] [address], [place] [address] Dec, [facility] [address] [id number] [address] [place] [address], [place] [address] Dec, [facility] [address] [id number] [address] [place] [address], [place] [address] Nov, [facility] [address] [id number] [address] [place] [address], [place] [address] Nov, [facility] [address] [id number] [address] [place] [address], [place] [address] September, [facility] [address] [id number] [address] [place] [address], [place] [address] September, [facility] [address] [id number] [address] [place] [address], [place] [address] September, [facility] [address] [id number] [address] [place] [address], [place] [address] September, [facility] [address] [id number] [address] [place] [address], [place] [address] Aug, [facility] [address] [id number] [address] [place] [address], [place] [address] Aug, [facility] [address] [id number] [address] [place] [address], [place] [address] Aug, [facility] [address] [id number] [address] [place] [address], [place] [address] Aug, [facility] [address] [id number] [address] [place] [address], [place] [address] Aug, [facility] [address] [id number] [address] [place] [address], [place] [address] Aug, [facility] [address] [id number] [address] [place] [address], [place] [address] Aug, [facility] [address] [id number] [address] [place] [address], [place] [address] Aug, [facility] [address] [id number] [address] [place] [address], [place] [address] Aug, [facility] [address] [id number] [address] [place] [address], [place] [address] Aug, [facility] [address] [id number] [address] [place] [address], [place] [address] Aug, [facility] [address] [id number] [facility] [place] [address] 07 Aug, 2013 [facility] [address] [id number] [address] [place] [address], [place] [address] Jul, [facility] [address] [id number] [address] [place] [address], [place] [address] Jul, [facility] [address] [id number] [address] [place] [address], [place] [address] Jul, [facility] [address] [id number] [address] [place] [address], [place] [address] Jul, [facility] [address] [id number] [address] [place] [address], [place] [address] Jul, [facility] [address] [id number] [address] [place] [address], [place] [address] Jul, [facility] [address] [id number] [address] [place] [address], [place] [address] Jul, [facility] [address] [id number] [address] [place] [address], [place] [address] 05 Jul, 2013 [facility] [address] [id number] [address] [place] [address], [place] [address] Jul, [facility] [address] [id number] [address] [place] [address], [place] [address] Jul, [facility] [address] [id number] [address] [place] [address], [place] [address] Jun, [facility] [address] [id number] [address] [place] [address], [place] [address] Jun, [facility] [address] [id number] [address] [place] [address], [place] [address] Jun, [facility] [address] [id number] [address] [place] [address], [place] [address] Jun, [facility] [address] [id number] [address] [place] [address], [place] [address] Jun, [facility] [address] [id number] [address] [place] [address], [place] [address] Jun, [facility] [address] [id number] [address] [place] [address], [place] [address] Jun, [facility] [address] [id number] [address] [place] [address], [place] [address] Jun, [facility] [address] [id number] [address] [place] [address], [place] [address] Jun, [facility] [address] [id number] [address] [place] [address], [place] [address] Jun, [facility] [address] [id number] [address] [place] [address], [place] [address] Jun, [facility] [address] [id number] [address] [place] [address], [place] [address] Jun, [facility] [address] [id number] [address] [place] [address], [place] [address] May, [facility] [address] [id number] [address] [place] [address], [place] [address] May, [facility] [address] [id number] [address] [place] [address], [place] [address] May, [facility] [address] [id number] [address] [place] [address], [place] [address] May, [facility] [address] [id number] [address] [place] [address], [place] [address] May, [facility] [address] [id number] [address] [place] [address], [place] [address] May, [facility] [address] [id number] [address] [place] [address], [place] [address] May, [facility] [address] [id number] [address] [place] [address], [place] [address] May, [facility] [address] [id number] [address] [place] [address], [place] [address] May, [facility] [address] [id number] [address] [place] [address], [place] [address] May, [facility] [address] [id number] [address] [place] [address], [place] [address] May, [facility] [address] [id number] [address] [place] [address], [place] [address] May, [facility] [address] [id number] [address] [place] [address], [place] [address] May, [facility] [address] [id number] [address] [place] [address], [place] [address] May, [facility] [address] [id number] [address] [place] [address], [place] [address] May, [facility] [address] [id number] [address] [place] [address], [place] [address] Apr, [facility] [address] [id number] [address] [place] [address], [place] [address] Apr, [facility] [address] [id number] [address] [place] [address], [place] [address] Apr, [facility] [address] [id number] [address] [place] [address], [place] [address] Apr, [facility] [address] [id number] [address] [place] [address], [place] [address] Mar, [facility] [address] [id number] [address] [place] [address], [place] [address] Mar, [facility] [address] [id number] [address] [place] [address], [place] [address] Mar, [facility] [address] [id number] [address] [place] [address], [place] [address] Mar, [facility] [address] [id number] [address] [place] [address], [place] [address] Mar, [facility] [address] [id number] [address] [place] [address], [place] [address] Mar, [facility] [address] [id number] [address] [place] [address], [place] [address] Mar, [facility] [address] [id number] [address] [place] [address], [place] [address] Mar, [facility] [address] [id number] [address] [place] [address], [place] [address] Mar, [facility] [address] [id number] [address] [place] [address], [place] [address] Mar, [facility] [address] [id number] [address] [place] [address], [place] [address] Mar, [facility] [address] [id number] [address] [place] [address], [place] [address] Mar, [facility] [address] [id number] [address] [place] [address], [place] [address] Feb, [facility] [address] [id number] [address] [place] [address], [place] [address] 18 Jan, 2013 [facility] [address] [id number] [address] [place] [address], [place] [address] 17 Jan, 2013 [facility] [address] [id number] [address] [place] [address], [place] [address] 06 Jan, 2013 [facility] [address] [id number] [address] [place] [address] 04 Jan, 2013 [facility] [address] [id number] [address] [place] [address], [place] [address] Jan, [facility] [address] [id number] [address] [place] [address], [place] [address] Dec, [facility] [address] [id number] [address] [place] [address], [place] [address] Dec, [facility] [address] [id number] [address] [place] [address], [place] [address] Dec, [facility] [address] [id number] [address] [place] [address], [place] [address] Dec, [facility] [address] [id number] [address] [place] [address], [place] [address] Dec, [facility] [address] [id number] [address] [place] [address], [place] [address] Dec, [facility] [address] [id number] [address] [place] [address], [place] [address] Dec, [facility] [address] [id number] [address] [place] [address], [place] [address] Dec, [facility] [address] [id number] [address] [place] [address], [place] [address] Nov, [facility] [address] [id number] [address] [place] [address], [place] [address] Nov, [facility] [address] [id number] [address] [place] [address], [place] [address] Nov, [facility] [address] [id number] [address] [place] [address], [place] [address] Nov, [facility] [address] [id number] [address] [place] [address], [place] [address] Nov, [facility] [address] [id number] [address] [place] [address], [place] [address] Nov, [facility] [address] [id number] [address] [place] [address], [place] [address] Oct, [facility] [place] [address] [id number] [id number] Oct, [facility] [place] [address] [id number] [place] [id number] Oct, [facility] [place] [address] [id number] [place] [id number] Oct, [facility] [place] [address] [id number] [place] [id number] Oct, [facility] [address] [id number] [address] [place] [address], [place] [address] Oct, [facility] [address] [id number] [address] [place] [address], [place] [address] Oct, [facility] [address] [id number] [address] [place] [address], [place] [address] Oct, [facility] [address] [id number] [address] [place] [address], [place] [address] Oct, [facility] [address] [id number] [address] [place] [address], [place] [address] Oct, [facility] [address] [id number] [address] [place] [address], [place] [address] Oct, [facility] [address] [id number] [address] [place] [address], [place] [address] September, [facility] [address] [id number] [address] [place] [address], [place] [address] Aug, [facility] [address] [id number] [address] [place] [address], [place] [address] Aug, [facility] [address] [id number] [address] [place] [address], [place] [address] Aug, [facility] [address] [id number] [address] [place] [address], [place] [address] Aug, [facility] [address] [id number] [address] [place] [address], [place] [address] Jul, [facility] [address] [id number] [address] [place] [address], [place] [address] Jul, [facility] [address] [id number] [address] [place] [address], [place] [address] Jul, [facility] [address] [id number] [address] [place] [address], [place] [address] Jul, [facility] [address] [id number] [address] [place] [address], [place] [address] Jul, [facility] [address] [id number] [address] [place] [address], [place] [address] 19 Jun, 2012 [facility] [address] [id number] [address] [place] [address], [place] [address] 13 Jun, 2012 [facility] [address] [id number] [address] [place] [address], [place] [address] Jun, [facility] [address] [id number] [address] [place] [address], [place] [address] May, [facility] [address] [id number] [address] [place] [address], [place] [address] 24 May, 2012 [facility] [address] [id number] [address] [place] [address], [place] [address] May, [facility] [address] [id number] [address] [place] [address], [place] [address] May, [facility] [address] [id number] [address] [place] [address], [place] [address] May, [facility] [address] [id number] [address] [place] [address], [place] [address] May, [facility] [address] [id number] [address] [place] [address], [place] [address] 18 Apr, 2012 [facility] [address] [id number] [address] [place] [address], [place] [address] 18 Apr, 2012 [facility] [address] [id number] [address] [place] [address], [place] [address] Apr, [facility] [address] [id number] [address] [place] [address], [place] [address] 13 Apr, 2012 [facility] [address] [id number] [address] [place] [address], [place] [address] 13 Apr, 2012 [facility] [address] [id number] [address] [place] [address], [place] [address] Apr, [facility] [address] [id number] [address] [place] [address], [place] [address] Apr, [facility] [address] [id number] [address] [place] [address], [place] [address] Mar, [facility] [address] [id number] [address] [place] [address], [place] [address] Mar, [facility] [address] [id number] [address] [place] [address], [place] [id number] Mar, [facility] [address] [id number] [address] [place] [address], [place] [id number] Mar, [facility] [address] [id number] [address] [place] [address], [place] [id number] 18 Jan, 2012 [facility] [address] [id number] [address] [place] [address], [place] [address] Jan, [facility] [address] [id number] [address] [place] [address], [place] [address] Jan, [facility] [address] [id number] [address] [place] [id number] Jan, [facility] [address] [id number] [place] [id number] Dec, [facility] [address] [id number] [address] [place] [id number] Dec, [facility] [address] [id number] [place] [id number] Dec, [facility] [address] [id number] [address] [place] [address], [place] [address] Dec, [facility] [address] [id number] [address] [place] [address], [place] [address] Dec, [facility] [address] [id number] [address] [place] [address], [place] [id number] Dec, [facility] [address] [id number] [address] [place] [id number] Nov, [facility] [address] [facility] [id number] [address] [place] [id number] Nov, [facility] [address] [facility] [id number] [address] [place] [id number] Nov, IMMUNIZATIONS No Known Immunizations SOCIAL HISTORY [...] Stent placed 08/19/2017 Hospitalization History Syncope- [facility] 12/2017 Hospitalization History heart cath ( 06/23/18-06/25/2018) Hospitalization History heart problem, overnight stay 9
[2019-11-03] MEDS ORDERED: LACTATED RINGERS 1,000 ML IV SCH (19:45)
[2019-11-03] MEDS ORDERED: ONDANSETRON 4 MG/2 ML (SDV) Z0FRAN IVP ONE (19:45)
--- OUTSIDE RECORDS SUMMARY | 2019-11-03 19:45 | XMS REPORT ---
Author Author Anca Lucero Doctor Organization [facility] Address Unknown Phone Unavailable Care Team Providers Care Auto Tester Name Role Phone Migration, Doctor Unavailable Unavailable PROBLEMS Type Condition ICD9-CM Code AEQ36-NS Code Onset Dates Condition S tatus SNOMED Code Problem Esophageal reflux K21.9 Active 24 2356041 Problem Dyslipidemia E78.5 12 Oct, 2017 Active 3709 78324 Problem Unspecified hypothyroidism E03.9 Act hernesto 53649617 Problem Generalized anxiety disorder F41.1 Apr, 200 8 Active 91864620 Problem Shortness of breath R06.02 Apr, Active 855821132 Problem Pulmonary embolus I26.99 13 Oct, 2011 Active 71943707 Problem Nonintractable migraine G43.009 08 Oct, 2015 Act hernesto 842920540 Problem Pre-diabetes R73.03 Active 2321305 02 Problem Morbid obesity with BMI of 50.0-59.9, adult Z68.43 Active 736975146 Problem Hypothyroidism E03.9 Active 90491 008 Problem Morbid obesity E66.01 Active 95625 6002 Problem Unspecified sleep apnea G47.30 Active 68072359 Problem Personal history of pulmonary embolism Z86.711 Active 556275240 Problem Osteoarthritis of right knee M17.11 13 May, 201 0 Active 608199749 Problem Renal stones N20.0 Active 8388067 7 Problem Coronary artery disease I25.10 Active 74698413 Problem Hyperlipidemia LDL goal <70 E78.5 Ac tive 69925042 Problem Migraine with aura and without status migrainosu s, not intractable G43.109 Active 1993672 ALLERGIES No Information ENCOUNTERS Encounter Location Date Diagnosis [facility] [address] [facility] [id number] [address] [place] [id number] 15 Sep, 2019 [facility] [address] [facility] [id number] [address] [place] [id number] 14 Sep, 2019 [facility] [address] [facility] [id number] [address] [place] [address] September, [facility] [address] [facility] [id number] [address] [place] [address] Aug, [facility] [address] [facility] [id number] [address] [place] [address] Aug, History of recurrent UTIs Z8 7.440 and Personal history of pulmonary embolism Z86.711 [facility] [address] [id number] [address] [place] [address] Jul, History of recurrent UTIs Z8 7.440 [place] [address] [facility] [id number] [address] [place] [address] Jun, Personal history of pulmonar y embolism Z86.711 [place] [address] [facility] [id number] [address] [place] [address] Jun, Personal history of pulmonar y embolism Z86.711 [place] [address] [facility] [id number] [address] [place] [address] May, [facility] [facility] [address] [id number] [address] May, 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 and Dizziness R42 [facility] [address] [facility] [id number] [address] [place] [address] Apr, Non-recurrent acute suppurat hernesto otitis media of both ears without spontaneous rupture of tympanic membranes H66.003 [place] [address] [facility] [id number] [address] [place] [address] Feb, Pre-diabetes R73.03 and Hype rlipidemia LDL goal <70 E78.5 [place] [address] [facility] [id number] [address] [place] [address] Feb, [facility] [address] [facility] [id number] [address] [place] [address] Feb, [place] [address] [facility] [id number] [address] [place] [id number] 30 Jan, 2019 [facility] [address] [facility] [id number] [address] [place] [address] Jan, [facility] [address] [facility] [id number] [address] [place] [address] 18 Jan, 2019 Encounter for Medicare annua l wellness exam Z00.00 ; Hyperlipidemia LDL goal <70 E78.5 ; Coronary artery disease I25.10 ; Hypothyroidism E03.9 ; Osteoarthritis of right knee M17.11 ; Morbid obesity with BMI of 50.0-59.9, adult Z68.43 and Esophageal reflux K21.9 [facility] [address] [facility] [id number] [address] [place] [address] 13 Jan, 2019 Dysuria R30.0 and Hematuria, unspecified type R31.9 [place] [address] [facility] [id number] [address] [place] [address] Jan, Hematuria, unspecified type R31.9 [facility] [address] [facility] [id number] [address] [place] [address] Dec, Hematuria, unspecified type R31.9 [facility] [address] [facility] [id number] [address] [place] [address] Nov, Hematuria, unspecified type R31.[id number] [place] [address] Nov, Other microscopic hematuria R31.29 [facility] [address] [facility] [id number] [address] [place] [address] Nov, Vaginal gena B37.3 ; Othe r microscopic hematuria R31.29 and Morbid obesity E66.01 [facility] [address] [facility] [id number] [address] [place] [address] Nov, [facility] [address] [facility] [id number] [address] [place] [address] Nov, [facility] [address] [address] Nov, UTI symptoms R39.9 and Morbi d obesity E66.01 [place] [address] [address] Nov, [place] [address] [address] September, [place] [address] [address] September, [place] [address] [address] Aug, Right foot pain M79.671 and Morbid obesity E66.01 [place] [address] [address] Jul, Right foot pain M79.671 and Morbid obesity E66.01 [facility] [place] [address] [address] Jul, Injury of right foot, initia l encounter S99.921A and Morbid obesity E66.01 [place] [address] [address] Jul, Recurrent syncope R55 and Mo rbid obesity E66.01 [place] [address] [address] Jul, [place] [address] [address] Jun, Hematuria, unspecified type R31.9 and BMI 50.0-59.9, adult Z68.43 [place] [address] [address] Jun, [id number] [place] [address] 04 Jun, 2018 [facility] current use of ant icoagulant Z79.01 [facility] [address] [place] [id number] [place] [address] May, Ankle pain, right M25.571 an d BMI 50.0-59.9, adult Z68.43 [facility] [address] [address] May, [facility] [address] [address] May, [facility] [address] [address] Apr, [facility] [address] [address] Apr, [facility] [address] [address] Apr, [facility] [address] [address] Apr, BMI 50.0-59.9, adult Z68.43 and Weakness R53.1 [facility] [address] [address] Apr, [facility] [address] [address] Apr, Dysuria R30.0 ; Hematuria R3 1.9 ; Renal lithiasis N20.0 and BMI 50.0-59.9, adult Z68.43 [facility] [address] [address] Apr, [place] [address] [address] Apr, [place] [address] [address] Apr, Hypothyroidism E03.9 [facility] [address] [place] [id number] [place] [address] Apr, Burning with urination R30.0 ; Type 2 diabetes mellitus with diabetic neuropathic arthropathy, without long-term current use of insulin E11.610 ; Acute bilateral low back pain without sciatica M54.5 and BMI 50.0- 59.9, adult Z68.43 [facility] [address] [place] [id number] [address] [place] [address] 02 Mar, 2018 Hypothyroidism E03.9 [facility] [address] [address] Feb, [facility] [address] [address] Jan, [place] [address] [address] Jan, Acute non-recurrent maxillar y sinusitis J01.00 and BMI 50.0-59.9, adult Z68.43 [facility] [address] [address] Jan, Congestion of upper respirat ory tract J98.8 and BMI 50.0-59.9, adult Z68.43 [place] [id number] [address] Dec, Type 2 diabetes mellitus wit h diabetic neuropathic arthropathy, without long-term current use of insulin E11.610 ; Morbid obesity with BMI of 50.0-59.9, adult Z68.43 ; Hypothyroidism E03.9 ; Coronary artery disease I25.10 ; Hyperlipidemia LDL goal <70 E78.5 ; Right lower quadrant abdominal pain R10.31 and Acute cystitis with hematuria N30.01 [facility] [address] [address] Dec, Migraine with aura and witho ut status migrainosus, not intractable G43.109 ; Dehydration symptoms R63.8 and BMI 50.0-59.9, adult Z68.43 [facility] [address] [address] Oct, [facility] [address] [place] [address] Oct, [place] [address] [address] Oct, [facility] [address] [place] [id number] [address] [place] [address] September, [place] [address] [address] September, Type 2 diabetes mellitus wit h diabetic neuropathic arthropathy, without long-term current use of insulin E11.610 ; Hyperlipidemia, unspecified hyperlipidemia type E78.5 ; Personal history of pulmonary embolism Z86.711 ; Coronary artery disease I25.10 and Hypothyroidism E03.9 [place] [address] [address] September, [place] [address] [address] Aug, Type 2 diabetes mellitus wit h [...] and with status migrainosus G43.011 [facility] [address] [place] [address] Aug, [place] [address] [place] [address] Aug, [place] [address] [place] [id number] [address] [place] [address] Jul, Renal stones N20.0 [facility] [address] [place] [id number] [address] [place] [address] Jun, Back pain M54.9 ; Kidney sto radha N20.0 and BMI 50.0-59.9, adult Z68.43 [place] [address] [address] Jun, [place] [address] [address] Apr, [place] [address] [address] Apr, [place] [address] [address] Apr, Right foot pain M79.671 ; Ac [place] gout involving toe of right foot, 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 and Arthritis M19.90 [place] [address] [address] 06 Apr, 2017 Gastroesophageal reflux dise ase without esophagitis K21.9 [place] [address] [address] 16 Mar, 2017 Hypothyroidism, unspecified E03.9 [place] [address] [address] 11 Feb, 2017 [place] [address] [address] 25 Jan, 2017 Cervicalgia of occipito-atla nto-axial region M54.2 and Persistent headaches R51 [place] [address] [address] 20 Jan, 2017 [place] [address] [address] 12 Jan, 2017 Intractable migraine without aura and with status migrainosus G43.011 ; Cervical spine pain M54.2 ; Hyperlipidemia, unspecified hyperlipidemia type E78.5 ; Hypothyroidism E03.9 and Metabolic syndrome E88.[address] [address] Jan, Hypothyroidism, unspecified E03.9 [place] [address] [place] [id number] [address] [place] [address] Dec, Hypothyroidism, unspecified E03.9 [place] [address] [address] Dec, Hypothyroidism E03.9 [place] [address] [address] Nov, Laceration of left great toe w/o foreign body w/o damage to nail, initial encounter S91.112A [facility] [address] [address] Oct, Pain in left knee M25.562 an d Arthritis M19.90 [place] [address] [address] Oct, Hypothyroidism, unspecified E03.9 and Hyperlipidemia, unspecified hyperlipidemia type E78.5 [place] [address] [address] Oct, Gastroesophageal reflux dise ase without esophagitis K21.9 [place] [address] [address] 14 Oct, 2016 Metabolic syndrome E88.81 ; Personal history of pulmonary embolism Z86.711 ; Other specified hypothyroidism E03.8 and Hyperlipidemia, unspecified hyperlipidemia type E78.5 [place] [address] [address] 13 Oct, 2016 Personal history of pulmonar y embolism Z86.711 ; Dysuria R30.0 ; Metabolic syndrome E88.81 ; Other specified hypothyroidism E03.8 ; Hyperlipidemia, unspecified hyperlipidemia type E78.5 and Morbid obesity with BMI of 50.0-59.9, adult Z68.43 [place] [address] [address] September, [facility] [address] [address] September, Wrist pain, left M25.532 and Acute pain of left knee M25.562 [place] [address] [address] Jul, Dysuria R30.0 [place] [address] [address] Jul, Dysuria R30.0 [place] [address] [address] 16 Jul, 2016 Left lower quadrant pain R10 .32 [place] [address] [address] Jul, [place] [address] [address] Jul, Coronary artery disease I25. 10 ; Family history of diabetes mellitus Z83.3 ; Morbid obesity with BMI of 50.0-59.9, adult Z68.43 ; Metabolic syndrome E88.81 ; Personal history of pulmonary embolism Z86.711 ; Gastroesophageal reflux disease without esophagitis K21.9 ; Hypothyroidism, unspecified E03.9 ; Hyperlipidemia, unspecified hyperlipidemia type E78.5 and Left lower quadrant pain R10.32 [facility] [address] [address] Jul, [facility] [address] [address] Jul, Morbid obesity with BMI of 5 0.0-59.9, adult Z68.43 [facility] [address] [address] Jul, Generalized abdominal pain R 10.84 [facility] [place] [id number] [place] [address] Jun, Muscle strain of right upper back, initial encounter S29.012A [facility] [address] [address] May, Foreign body (FB) in soft ti ssue M79.5 [place] [address] [place] [id number] [address] [place] [address] Mar, Hypothyroidism, unspecified E03.9 and Arthritis M19.90 [place] [address] [place] [id number] [address] [place] [address] 13 Feb, 2016 Coronary artery disease I25. 10 ; Morbid obesity with BMI of 50.0- 59.9, adult Z68.43 ; Metabolic syndrome E88.81 ; Gastroesophageal reflux disease without esophagitis K21.9 ; Hypothyroidism, unspecified E03.9 ; Personal history of pulmonary embolism Z86.711 and Hyperlipidemia, unspecified hyperlipidemia type E78.5 [place] [address] [place] [id number] [address] [place] [address] 10 Feb, 2016 [facility] [address] [place] [id number] [address] [place] [address] 12 Jan, 2016 Acute right-sided thoracic b ack pain M54.6 [place] [address] [place] [id number] [address] [place] [address] Jan, Acute pain of left knee M25. 562 [place] [address] [place] [id number] [place] [address] 18 Dec, 2015 Dysuria R30.0 ; Metabolic sy ndrome E88.81 ; Acute pain of left knee M25.562 ; Acute cystitis with hematuria N30.01 and Acute left eye pain H57.12 [place] [address] [facility] [id number] [address] [place] [address] Dec, [place] [address] [place] [id number] [place] [address] Dec, [place] [address] [facility] [id number] [address] [place] [address] Dec, Hypothyroidism, unspecified E03.9 [place] [address] [place] [id number] [place] [address] Dec, [place] [id number] [facility] [id number] [address] [place] [address] Nov, Peripheral edema R60.9 and A cute pain of left knee M25.562 [facility] [place] [address] [address] [facility] [id number] [address] [place] [address] September, [place] [address] [facility] [id number] [address] [place] [address] September, Metabolic syndrome E88.81 an d Allergy, subsequent encounter T78.40XD [facility] [place] [address] [address] [facility] [id number] [place] [address] September, Muscle strain T14.8 [place] [address] [facility] [id number] [address] [place] [address] Aug, Chest pressure R07.89 ; [place] bolic syndrome E88.81 ; Morbid obesity with BMI of 50.0-59.9, adult Z68.43 ; Esophageal reflux 530.81 and Shortness of breath R06.02 [place] [address] [facility] [id number] [address] [place] [address] Aug, [place] [address] [facility] [id number] [address] [place] [address] Aug, [place] [address] [facility] [id number] [address] [place] [address] Aug, Hypothyroidism, unspecified E03.9 [place] [address] [facility] [id number] [address] [place] [address] Aug, Routine health maintenance Z 00.00 [facility] [place] [address] [address] [facility] [id number] [address] [place] [address] Aug, [place] [address] [facility] [id number] [address] [place] [address] Jul, Routine health maintenance Z 00.00 ; Family history of diabetes mellitus Z83.3 ; Family history of cancer Z80.9 and Morbid obesity with BMI of 50.0-59.9, adult Z68.43 [facility] [address] [place] [id number] [address] [place] [address] 28 Jul, 2016 Allergic rhinitis J30.9 and Postnasal drip R09.82 [place] [address] [place] [id number] [address] [place] [address] 18 Jul, 2015 Influenza J11.1 [facility] [address] [place] [address] 08 Jul, 2015 Dysuria R30.0 [place] [address] [address] Apr, [place] [address] [address] Mar, Acute upper respiratory infe ction, unspecified J06.9 and Hypothyroidism E03.9 [place] [address] [address] Mar, [place] [address] [address] Feb, Coronary artery disease I25. 10 [place] [address] [address] Feb, Left foot pain M79.672 [place] [address] [place] [id number] [address] [place] [address] Jan, UTI (urinary tract infection ) 599.0 [place] [address] [place] [id number] [address] [place] [address] Jan, Urinary tract infection, sit e not specified 599.0 [place] [address] [place] [id number] [address] [place] [address] Jan, Urinary tract infection, sit e not specified 599.0 [place] [address] [place] [id number] [address] [place] [address] Jan, [facility] [address] [place] [id number] [address] [place] [address] Dec, Headache 784.0 [facility] [address] [facility] [id number] [address] [place] [address] Dec, Urinary tract infection, sit e not specified 599.0 [facility] [address] [place] [id number] [address] [place] [address] Dec, Urinary tract infection, sit e not specified 599.0 [facility] [address] [place] [id number] [address] [place] [address] Dec, Urinary tract infection, sit e not specified 599.0 [facility] [address] [place] [id number] [place] [address] Nov, Unspecified sleep apnea 780. 57 ; Encounter for long-term (current) use of anticoagulants V58.61 ; Routine general medical examination at health care facility V70.0 and Arthritis of both knees 716.96 [facility] [address] [place] [address] September, Cat bite of hand 882.0 and R ectal bleeding 569.3 [facility] [address] [place] [id number] [place] [address] Aug, [facility] [address] [place] [id number] [place] [address] Aug, [facility] [address] [place] [id number] [place] [address] Jul, [facility] [address] [place] [address] [id number] [address] [place] [id number] Jul, [facility] [address] [id number] [address] [place] [id number] Jul, [facility] [address] [id number] [address] [place] [id number] Jul, [facility] [address] [id number] [address] [place] [address], [place] [address] Jul, [facility] [address] [id number] [address] [place] [address], [place] [id number] Jul, [facility] [address] [id number] [address] [place] [address], [place] [address] Jul, [facility] [address] [id number] [address] [place] [address], [place] [address] Jul, [facility] [address] [id number] [address] [place] [address], [place] [address] May, [facility] [address] [id number] [address] [place] [address], [place] [id number] May, [facility] [address] [id number] [address] [place] [address], [place] [address] May, [facility] [address] [id number] [address] [place] [address], [place] [address] May, [facility] [address] [id number] [address] [place] [address], [place] [address] May, [facility] [address] [id number] [address] [place] [address], [place] [address] May, [facility] [address] [id number] [address] [place] [address], [place] [address] May, [facility] [address] [id number] [address] [place] [address], [place] [address] Mar, [facility] [address] [id number] [address] [place] [address], [place] [address] Mar, [facility] [address] [id number] [address] [place] [address], [place] [address] Jan, [facility] [address] [id number] [address] [place] [address], [place] [address] Jan, [facility] [address] [id number] [address] [place] [address], [place] [address] Jan, [facility] [address] [id number] [address] [place] [address], [place] [address] Jan, [facility] [address] [id number] [address] [place] [address], [place] [address] Jan, [facility] [address] [id number] [address] [place] [address], [place] [address] Jan, [facility] [address] [id number] [address] [place] [address], [place] [address] Dec, [facility] [address] [id number] [address] [place] [address], [place] [address] Dec, [facility] [address] [id number] [address] [place] [address], [place] [address] Dec, [facility] [address] [id number] [address] [place] [address], [place] [address] Dec, [facility] [address] [id number] [address] [place] [address], [place] [address] Dec, [facility] [address] [id number] [address] [place] [address], [place] [address] Dec, [facility] [address] [id number] [address] [place] [address], [place] [address] Dec, [facility] [address] [id number] [address] [place] [address], [place] [address] Dec, [facility] [address] [id number] [address] [place] [address], [place] [address] Dec, [facility] [address] [id number] [address] [place] [address], [place] [address] Dec, [facility] [address] [id number] [address] [place] [address], [place] [address] Nov, [facility] [address] [id number] [address] [place] [address], [place] [address] Nov, [facility] [address] [id number] [address] [place] [address], [place] [address] September, [facility] [address] [id number] [address] [place] [address], [place] [address] September, [facility] [address] [id number] [address] [place] [address], [place] [address] September, [facility] [address] [id number] [address] [place] [address], [place] [address] September, [facility] [address] [id number] [address] [place] [address], [place] [address] Aug, [facility] [address] [id number] [address] [place] [address], [place] [address] Aug, [facility] [address] [id number] [address] [place] [address], [place] [address] Aug, [facility] [address] [id number] [address] [place] [address], [place] [address] Aug, [facility] [address] [id number] [address] [place] [address], [place] [address] Aug, [facility] [address] [id number] [address] [place] [address], [place] [address] Aug, [facility] [address] [id number] [address] [place] [address], [place] [address] Aug, [facility] [address] [id number] [address] [place] [address], [place] [address] Aug, [facility] [address] [id number] [address] [place] [address], [place] [address] Aug, [facility] [address] [id number] [address] [place] [address], [place] [address] Aug, [facility] [address] [id number] [address] [place] [address], [place] [address] Aug, [facility] [address] [id number] [address] [place] [address], [place] [address] Aug, [facility] [address] [id number] [facility] [place] [address] 20 Jul, 2013 [facility] [address] [id number] [address] [place] [address], [place] [address] Jul, [facility] [address] [id number] [facility] [place] [address] Jul, [facility] [address] [id number] [address] [place] [address], [place] [address] Jul, [facility] [address] [id number] [address] [place] [address], [place] [address] 06 Jul, 2013 [facility] [address] [id number] [address] [place] [address], [place] [address] 06 Jul, 2013 [facility] [address] [id number] [address] [place] [address], [place] [address] 05 Jul, 2013 [facility] [address] [id number] [address] [place] [address], [place] [address] 05 Jul, 2013 [facility] [address] [id number] [address] [place] [address], [place] [address] Jul, [facility] [address] [id number] [address] [place] [address], [place] [address] Jul, [facility] [address] [id number] [address] [place] [address], [place] [address] 28 Jun, 2013 [facility] [address] [id number] [address] [place] [address], [place] [address] 28 Jun, 2013 [facility] [address] [id number] [address] [place] [address], [place] [address] 17 Jun, 2013 [facility] [address] [id number] [address] [place] [address], [place] [address] 17 Jun, 2013 [facility] [address] [id number] [address] [place] [address], [place] [address] 13 Jun, 2013 [facility] [address] [id number] [address] [place] [address], [place] [address] Jun, [facility] [address] [id number] [address] [place] [address], [place] [address] Jun, [facility] [address] [id number] [address] [place] [address], [place] [address] Jun, [facility] [address] [id number] [address] [place] [address], [place] [address] Jun, [facility] [address] [id number] [address] [place] [address], [place] [address] Jun, [facility] [address] [id number] [address] [place] [address], [place] [address] Jun, [facility] [address] [id number] [address] [place] [address], [place] [address] Jun, [facility] [address] [id number] [address] [place] [address], [place] [address] May, [facility] [address] [id number] [address] [place] [address], [place] [address] May, [facility] [address] [id number] [address] [place] [address], [place] [address] May, [facility] [address] [id number] [address] [place] [address], [place] [address] May, [facility] [address] [id number] [address] [place] [address], [place] [address] May, [facility] [address] [id number] [address] [place] [address], [place] [address] May, [facility] [address] [id number] [address] [place] [address], [place] [address] May, [facility] [address] [id number] [address] [place] [address], [place] [address] May, [facility] [address] [id number] [address] [place] [address], [place] [address] May, [facility] [address] [id number] [address] [place] [address], [place] [address] May, [facility] [address] [id number] [address] [place] [address], [place] [address] May, [facility] [address] [id number] [address] [place] [address], [place] [address] May, [facility] [address] [id number] [address] [place] [address], [place] [address] May, [facility] [address] [id number] [address] [place] [address], [place] [address] May, [facility] [address] [id number] [address] [place] [address], [place] [address] May, [facility] [address] [id number] [address] [place] [address], [place] [address] Apr, [facility] [address] [id number] [address] [place] [address], [place] [address] Apr, [facility] [address] [id number] [address] [place] [address], [place] [address] Apr, [facility] [address] [id number] [address] [place] [address], [place] [address] Apr, [facility] [address] [id number] [address] [place] [address], [place] [address] Mar, [facility] [address] [id number] [address] [place] [address], [place] [address] Mar, [facility] [address] [id number] [address] [place] [address], [place] [address] Mar, [facility] [address] [id number] [address] [place] [address], [place] [address] Mar, [facility] [address] [id number] [address] [place] [address], [place] [address] Mar, [facility] [address] [id number] [address] [place] [address], [place] [address] Mar, [facility] [address] [id number] [address] [place] [address], [place] [address] Mar, [facility] [address] [id number] [address] [place] [address], [place] [address] Mar, [facility] [address] [id number] [address] [place] [address], [place] [address] Mar, [facility] [address] [id number] [address] [place] [address], [place] [address] Mar, [facility] [address] [id number] [address] [place] [address], [place] [address] Mar, [facility] [address] [id number] [address] [place] [address], [place] [address] Mar, [facility] [address] [id number] [address] [place] [address], [place] [address] Feb, [facility] [address] [id number] [address] [place] [address], [place] [address] 18 Jan, 2013 [facility] [address] [id number] [address] [place] [address], [place] [address] 17 Jan, 2013 [facility] [address] [id number] [address] [place] [address], [place] [address] 06 Jan, 2013 [facility] [address] [id number] [address] [place] [address], [place] [address] 04 Jan, 2013 [facility] [address] [id number] [address] [place] [address] Jan, [facility] [address] [id number] [address] [place] [address], [place] [address] Dec, [facility] [address] [id number] [address] [place] [address], [place] [address] Dec, [facility] [address] [id number] [address] [place] [address], [place] [address] Dec, [facility] [address] [id number] [facility] [place] [address] Dec, [facility] [address] [id number] [address] [place] [address], [place] [address] Dec, [facility] [address] [id number] [address] [place] [address], [place] [address] Dec, [facility] [address] [id number] [address] [place] [address], [place] [address] Dec, [facility] [address] [id number] [address] [place] [address], [place] [address] Dec, [facility] [address] [id number] [address] [place] [address], [place] [address] Nov, [facility] [address] [id number] [address] [place] [address], [place] [address] Nov, [facility] [address] [id number] [address] [place] [address], [place] [address] Nov, [facility] [address] [id number] [address] [place] [address], [place] [address] Nov, [facility] [address] [id number] [address] [place] [address], [place] [address] Nov, [facility] [address] [id number] [address] [place] [address], [place] [address] Nov, [facility] [address] [id number] [address] [place] [address], [place] [address] Oct, [facility] [address] [id number] [place] [id number] Oct, [facility] [place] [address] [id number] [place] [id number] Oct, [facility] [place] [address] [id number] [place] [id number] Oct, [facility] [place] [address] [id number] [place] [id number] Oct, [facility] [address] [id number] [address] [place] [address], [place] [address] 13 Oct, 2012 [facility] [address] [id number] [address] [place] [address], [place] [address] Oct, [facility] [address] [id number] [address] [place] [address], [place] [address] Oct, [facility] [address] [id number] [address] [place] [address], [place] [address] Oct, [facility] [address] [id number] [address] [place] [address], [place] [address] Oct, [facility] [address] [id number] [address] [place] [address], [place] [address] 05 Oct, 2012 [facility] [address] [id number] [address] [place] [address], [place] [address] September, [facility] [address] [id number] [address] [place] [address], [place] [address] Aug, [facility] [address] [id number] [address] [place] [address], [place] [address] Aug, [facility] [address] [id number] [address] [place] [address], [place] [address] Aug, [facility] [address] [id number] [address] [place] [address], [place] [address] Aug, [facility] [address] [id number] [address] [place] [address], [place] [address] 24 Jul, 2012 [facility] [address] [id number] [address] [place] [address], [place] [address] Jul, [facility] [address] [id number] [address] [place] [address], [place] [address] Jul, [facility] [address] [id number] [address] [place] [address], [place] [address] 05 Jul, 2012 [facility] [address] [id number] [address] [place] [address], [place] [address] Jul, [facility] [address] [id number] [address] [place] [address], [place] [address] 19 Jun, 2012 [facility] [address] [id number] [address] [place] [address], [place] [address] 13 Jun, 2012 [facility] [address] [id number] [address] [place] [address], [place] [address] 11 Jun, 2012 [facility] [address] [id number] [address] [place] [address], [place] [address] May, [facility] [address] [id number] [address] [place] [address], [place] [address] 24 May, 2012 [facility] [address] [id number] [address] [place] [address], [place] [address] May, [facility] [address] [id number] [address] [place] [address], [place] [address] May, [facility] [address] [id number] [address] [place] [address], [place] [address] May, [facility] [address] [id number] [address] [place] [address], [place] [address] May, [facility] [address] [id number] [address] [place] [address], [place] [address] 18 Apr, 2012 [facility] [address] [id number] [address] [place] [address], [place] [address] 18 Apr, 2012 [facility] [address] [id number] [address] [place] [address], [place] [address] 13 Apr, 2012 [facility] [address] [id number] [address] [place] [address], [place] [address] 13 Apr, 2012 [facility] [address] [id number] [address] [place] [address], [place] [address] 13 Apr, 2012 [facility] [address] [id number] [address] [place] [address], [place] [address] 11 Apr, 2012 [facility] [address] [id number] [address] [place] [address] Apr, [facility] [address] [id number] [address] [place] [address], [place] [address] Mar, [facility] [address] [id number] [address] [place] [address], [place] [address] Mar, [facility] [address] [id number] [address] [place] [address], [place] [address] Mar, [facility] [address] [id number] [address] [place] [address], [place] [address] Mar, [facility] [address] [id number] [address] [place] [address], [place] [address] Jan, [facility] [address] [id number] [address] [place] [address], [place] [address] Jan, [facility] [address] [id number] [address] [place] [address], [place] [address] Jan, [facility] [address] [id number] [address] [place] [address], [place] [address] Jan, [facility] [address] [id number] [place] [id number] Dec, [facility] [address] [id number] [address] [place] [address] Dec, [facility] [address] [id number] [place] [id number] Dec, [facility] [address] [id number] [address] [place] [id number] Dec, [facility] [address] [id number] [address] [place] [address], [place] [phone] Dec, [facility] [address] [id number] [address] [place] [address], [place] [id number] Dec, [facility] [address] [id number] [address] [place] [address], [place] [id number] Nov, [facility] [address] [id number] [address] [place] [id number] Nov, [facility] [address] [facility] [id number] [address] [place] [id number] Nov, IMMUNIZATIONS No Known Immunizations SOCIAL HISTORY Never Assessed REASON FOR VISIT PLAN OF CARE VITAL SIGNS Height 62 in 2012-11-15 Weight 316.98 lbs 2012-11-15 Temperature 97.4 degrees Fahrenheit 2012-11-15 Heart Rate 85 bpm 2012-11-15 Respiratory Rate 20 2012-11-15 Blood pressure systolic 130 mmHg 2012-11-15 Blood pressure diastolic 90 mmHg 2012-11-15 MEDICATIONS Unknown Medications RESULTS No Results PROCEDURES Procedure Date Ordered Result Body Site PROTHROMBIN TIME November 15, 2012 ASSAY THYROID STIM HORMONE November 15, 2012 VENIPUNCT, ROUTINE* November 15, 2012 INSTRUCTIONS MEDICATIONS ADMINISTERED No Known Medications [...] asthma(493.90) Medical History Near syncope Medical History [facility] current use of anticoagulant Medical History Renal [...]
[2019-11-03 19:50] LABS: BASOPHILS % (AUTO) 0 % (0-10); EOSINOPHILS # (AUTO) 0.1 10^3/uL (0.0-0.3); EOSINOPHILS % (AUTO) 1 % (0-10); HEMATOCRIT 43 % (35-52); HEMOGLOBIN 13.8 G/DL (11.5-16.0); LYMPHOCYTES # (AUTO) 2.5 X 10^3 (1.0-4.0); LYMPHOCYTES % (AUTO) 21 % (12-44); MEAN CORPUSCULAR HEMOGLOBIN 30 PG (25-34); MEAN CORPUSCULAR HGB CONC 32 G/DL (32-36); MEAN CORPUSCULAR VOLUME 94 FL (80-99); MEAN PLATELET VOLUME 10.8 FL (7.4-10.4); MONOCYTES # (AUTO) 0.8 X 10^3 (0.0-1.0); MONOCYTES % (AUTO) 7 % (0-12); NEUTROPHILS # (AUTO) 8.1 X 10^3 (1.8-7.8); NEUTROPHILS % (AUTO) 71 % (42-75); PLATELET COUNT 232 10^3/uL (130-400); RED CELL DISTRIBUTION WIDTH 15.4 % (10.0-14.5); WHITE BLOOD COUNT 11.5 10^3/uL (4.3-11.0)
[2019-11-03 19:51] LABS: BILIRUBIN,URINE NEGATIVE (NEGATIVE); COLOR,URINE YELLOW; GLUCOSE, URINE (UA) NEGATIVE (NEGATIVE); KETONES,URINE NEGATIVE (NEGATIVE); LEUKOCYTE ESTERASE ,URINE NEGATIVE (NEGATIVE); NITRITE,URINE NEGATIVE (NEGATIVE); PH,URINE 5.5 (5-9); PROTEIN,URINE NEGATIVE (NEGATIVE)
--- OUTSIDE RECORDS SUMMARY | 2019-11-03 19:53 | XMS REPORT | Continuity of Care Document ---
Demographics Preferred Language Unknown Marital Status Unknown Synagogue Affiliation Unknown Race Unknown Ethnic Group Unknown Author Organization Unknown Address Unknown Phone Unavailable Allergies Active Description Code Type Severity Reaction Onset Reported/Identified Relationship to Patient Clinical Status Yes Amoxicillin Drug Allergy N/A N/A 12/05/2011 Yes dexamethasone Drug Allergy N/A N/A 12/05/2011 Yes methylprednisolone Drug Allerg y N/A N/A 12/05/2011 Yes Phenergan Plain Drug Allergy N/A N/A 12/05/2011 Yes ADHESIVE Drug Allergy 12/05/2011 Yes Amoxicillin Drug Allergy 12/05/2011 Yes dexamethasone Drug Allergy 12/05/2011 Yes HONEY BEE VENOM Drug Allergy 12/05/2011 Yes methylprednisolone Drug Allerg y 12/05/2011 Yes Phenergan Plain Drug Allergy 12/05/2011 Yes TAPE Drug Allergy 12/05/2011 Yes Levothroid 125 mcg tablet Drug Allergy N/A N/A 03/19/2012 Yes Levothroid 125 mcg tablet Drug Allergy 03/19/2012 Yes TAPE TAPE Unknown N/A 08/16/2013 Yes bee venom (honey bee) [id number] Drug Allergy Unknown N/A 02/02/2014 Yes methylprednisolone [id number] Drug Allergy Mild N/A 11/05/2018 Yes atorvastatin [id number] Drug Allergy Unknown N/A 11/05/2018 Yes isosorbide [id number] Drug Allerg y Unknown N/A 11/05/2018 Yes ketorolac [id number] Drug Allergy Unknown ITCHING 11/05/2018 Yes Penicillins [id number] Drug Aller gy Unknown N/A 11/05/2018 Yes promethazine [id number] Drug Allergy Unknown hallucinations 11/05/2018 Yes venom-honey bee [id number] D rug Allergy Unknown N/A 11/05/2018 Medications There is no data. Problems Date Dx Coded Attending Type Code Diagnosis Diagnosed By 09/17/2009 Ot 276.6 09/17/2009 Ot 414.01 09/17/2009 Ot 682.1 09/17/2009 Ot 787.01 09/17/2009 Ot 998.59 09/17/2009 Ot E930.8 08/27/2010 Ot 246.9 DISO RDER OF THYROID NOS 08/27/2010 Ot 780.4 DIZZ INESS AND GIDDINESS 08/27/2010 Ot 786.09 RES PIRATORY ABNORM NEC 08/27/2010 Ot V58.69 OTH MED,LT,CURRENT USE 10/10/2010 Ot 244.0 POST SURGICAL HYPOTHYROID 10/10/2010 Ot 493.90 AST HMA, UNSPECIFIED 10/10/2010 Ot 530.81 ESO PHAGEAL REFLUX 10/10/2010 Ot V58.69 OTH MED,LT,CURRENT USE 03/04/2011 Ot 351.8 FACI AL NERVE DIS NEC 03/04/2011 Ot 784.0 HEAD ACHE 08/28/2011 Ot 626.8 MENS TRUAL DISORDER NEC 10/29/2011 Ot 729.5 PAIN IN LIMB 11/27/2011 Ot 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 11/27/2011 Ot 786.05 SARA RTNESS OF BREATH 12/05/2011 786.05 SARA RTNESS OF BREATH 12/05/2011 789.00 ABD OMINAL PAIN UNSPECIFIED SITE 12/05/2011 V12.55 PER ENMA HISTORY OF PULMONARY EMBOLISM 12/05/2011 V70.0 ROUT INE GENERAL MEDICAL EXAMINATION AT A HEALTH CARE FACILITY 12/05/2011 786.05 SARA RTNESS OF BREATH 12/05/2011 789.00 ABD OMINAL PAIN UNSPECIFIED SITE 12/05/2011 V12.55 PER ENMA HISTORY OF PULMONARY EMBOLISM 12/05/2011 V70.0 ROUT INE GENERAL MEDICAL EXAMINATION AT A HEALTH CARE FACILITY 12/05/2011 786.05 SARA RTNESS OF BREATH 12/05/2011 789.00 ABD OMINAL PAIN UNSPECIFIED SITE 12/05/2011 V12.55 PER ENMA HISTORY OF PULMONARY EMBOLISM 12/05/2011 V70.0 ROUT INE GENERAL MEDICAL EXAMINATION AT A HEALTH CARE [...] AT A HEALTH CARE FACILITY 12/05/2011 786.05 Sara rtness Of Breath 12/05/2011 789.00 Abd ominal Pain Unspecified Site 12/05/2011 V12.55 Per enma History Of Pulmonary Embolism 12/05/2011 V70.0 ROUT INE GENERAL MEDICAL EXAMINATION AT A HEALTH CARE FACILITY 12/05/2011 VIVEK CALABRESE-CHARLES De Paz 786.05 Shortness Of Breath 12/05/2011 VIVEK CALABRESE-C, CHARLES M 789.00 Abdominal Pain Unspecified Site 12/05/2011 VIVEK CALABRESE-CHARLES De Paz V12.55 Personal History Of Pulmonary Embolism 12/05/2011 VIVEK CALABRESE-CCHARLES M V70.0 ROUTINE GENERAL MEDICAL EXAMINATION AT [facility] 12/05/2011 JOSE ALBERTO ARIZA DO 786.05 Shortness [...] AT A HEALTH CARE FACILITY 12/05/2011 786.05 Sara rtness Of Breath 12/05/2011 789.00 Abd ominal Pain Unspecified Site 12/05/2011 V12.55 Per enma History Of Pulmonary Embolism 12/05/2011 V70.0 ROUT INE GENERAL MEDICAL EXAMINATION AT A HEALTH CARE FACILITY 12/05/2011 786.05 Sara rtness Of Breath 12/05/2011 789.00 Abd ominal Pain Unspecified Site 12/05/2011 V12.55 Per enma History Of Pulmonary Embolism 12/05/2011 V70.0 ROUT INE GENERAL MEDICAL EXAMINATION AT A HEALTH CARE FACILITY 12/05/2011 786.05 Sara rtness Of Breath 12/05/2011 789.00 Abd ominal Pain Unspecified Site 12/05/2011 V12.55 Per enma History Of Pulmonary Embolism 12/05/2011 V70.0 ROUT INE GENERAL MEDICAL EXAMINATION AT A HEALTH CARE FACILITY 12/05/2011 786.05 Sara rtness Of Breath 12/05/2011 789.00 Abd ominal Pain Unspecified Site 12/05/2011 V12.55 Per enma History Of Pulmonary Embolism 12/05/2011 V70.0 ROUT INE GENERAL MEDICAL EXAMINATION AT A HEALTH CARE FACILITY 12/05/2011 786.05 Sara rtness Of Breath 12/05/2011 789.00 Abd ominal Pain Unspecified Site 12/05/2011 V12.55 Per enma History Of Pulmonary Embolism 12/05/2011 V70.0 ROUT INE GENERAL MEDICAL EXAMINATION AT A HEALTH CARE FACILITY 12/05/2011 786.05 Sara rtness Of Breath 12/05/2011 789.00 Abd ominal Pain Unspecified Site 12/05/2011 V12.55 Per enma History Of Pulmonary Embolism 12/05/2011 V70.0 ROUT INE GENERAL MEDICAL EXAMINATION AT A HEALTH CARE FACILITY 12/05/2011 786.05 Sara rtness Of Breath 12/05/2011 789.00 Abd ominal Pain Unspecified Site 12/05/2011 V12.55 Per enma History Of Pulmonary Embolism 12/05/2011 V70.0 ROUT INE GENERAL MEDICAL EXAMINATION AT A HEALTH CARE FACILITY 12/05/2011 ARIZA DO JOSE ALBERTO K 786.05 Shortness Of Breath 12/05/2011 ANNITA MOYA JOSE ALBERTO K 789.00 Abdominal Pain Unspecified Site 12/05/2011 ARIZA DO JOSE ALBERTO K V12.55 Personal History Of Pulmonary Embolism 12/05/2011 ARIZA DO, JOSE ALBERTO K V70.0 ROUTINE GENERAL MEDICAL EXAMINATION AT A HEALTH CARE FACILITY 12/05/2011 ARIZA DO JOSE ALBERTO K 786.05 Shortness Of Breath 12/05/2011 ARIZA DO JOSE ALBERTO K 789.00 Abdominal Pain [...] V70.0 ROUTINE GENERAL MEDICAL EXAMINATION AT A [facility] FACILITY 12/05/2011 ARIZA DO, JOSE ALBERTO K 786.05 Shortness Of Breath 12/05/2011 ARIZA DO, JOSE ALBERTO K 789.00 Abdominal Pain Unspecified Site 12/05/2011 ARIZA DO, JOSE ALBERTO K V12.55 Personal History Of Pulmonary Embolism 12/05/2011 ARIZA DO, JOSE ALBERTO K V70.0 ROUTINE GENERAL MEDICAL EXAMINATION AT A [facility] CARE [facility] 12/05/2011 ARIZA DO, JOSE ALBEROT K 786.05 Shortness Of Breath 12/05/2011 ARIZA DO, JOSE ABLERTO K 789.00 Abdominal Pain Unspecified Site 12/05/2011 ARIZA DO, JOSE ALBERTO K V12.55 Personal History Of Pulmonary Embolism 12/05/2011 ARIZA DO, JOSE ALBERTO K V70.0 ROUTINE GENERAL MEDICAL EXAMINATION AT A [facility] FAC[facility] 12/05/2011 ARIZA DO, JOSE ALBERTO K 786.05 Shortness Of Breath 12/05/2011 ARIZA DO, JOSE ALBERTO K 789.00 Abdominal Pain Unspecified Site 12/05/2011 ARIZA DO, JOSE ALBERTO K V12.55 Personal History Of Pulmonary Embolism 12/05/2011 ARIZA DO, JOSE ALBERTO K V70.0 ROUTINE GENERAL MEDICAL EXAMINATION AT A [facility] 12/05/2011 ARIZA DO, JOSE ALBERTO K 786.05 Shortness Of Breath 12/05/2011 ARIZA DO, JOSE ALBERTO K 789.00 Abdominal Pain Unspecified Site 12/05/2011 ARIZA DO, JOSE ALBERTO K V12.55 Personal History Of Pulmonary Embolism 12/05/2011 ARIZA DO, JOSE ALBERTO K V70.0 ROUTINE GENERAL MEDICAL EXAMINATION AT A [facility] FACILITY 12/05/2011 VIVIENNE DOPSTER DONI S 786.05 Shortness Of Breath 12/05/2011 VIVIENNE DOPSTER, DONI S 789.00 Abdominal Pain Unspecified Site 12/05/2011 VIVIENNE DOPSTER, DONI S V12.55 Personal History Of Pulmonary Embolism 12/05/2011 VIVIENNE DOPSTER, DONI S V70.0 ROUTINE GENERAL MEDICAL EXAMINATION AT A [facility] 12/05/2011 ARIZA DO, JOSE ALBERTO K 786.05 Shortness Of Breath 12/05/2011 ARIZA DO, JOSE ALBERTO K 789.00 Abdominal Pain Unspecified Site 12/05/2011 ARIZA DO, JOSE ALBERTO K V12.55 Personal History Of Pulmonary Embolism 12/05/2011 ARIZA DO, JOSE ALBERTO K V70.0 ROUTINE GENERAL MEDICAL EXAMINATION AT A [facility]AC[facility] 12/05/2011 ARIZA DO, JOSE ALBERTO K 786.05 Shortness Of Breath 12/05/2011 ARIZA DO, JOSE ALBERTO K 789.00 Abdominal Pain Unspecified Site 12/05/2011 ARIZA DO, JOSE ALBERTO K V12.55 Personal History Of Pulmonary Embolism 12/05/2011 ARIZA DO, JOSE ALBERTO K V70.0 ROUTINE GENERAL MEDICAL EXAMINATION AT A [facility] 12/05/2011 AIRZA DO, JOSE ALBERTO K 786.05 Shortness Of Breath 12/05/2011 ARIZA DO, JOSE ALBERTO K 789.00 Abdominal Pain Unspecified Site 12/05/2011 ARIZA DO, JOSE ALBERTO K V12.55 Personal History Of Pulmonary Embolism 12/05/2011 ARIZA DO, JOSE ALBERTO K V70.0 ROUTINE GENERAL MEDICAL EXAMINATION AT A [facility]AC[facility] 12/05/2011 VALENCIA MAXN, CHERYL R 786.05 Shortness Of Breath 12/05/2011 VALENCIA MAXN, CHERYL R 789.00 Abdominal Pain Unspecified Site 12/05/2011 VALENCIA MAXNJULICHERYL R V12.55 Personal History Of Pulmonary Embolism 12/05/2011 VALENCIA MAXN, CHERYL R V70.0 ROUTINE GENERAL MEDICAL EXAMINATION AT [facility] 12/05/2011 CHARLES DOYLE PA-C 786.05 Shortness Of Breath 12/05/2011 CHARLES DOYLE PA-C 789.00 Abdominal Pain Unspecified Site 12/05/2011 CHARLES DOYLE PA-C M V12.55 Personal History Of Pulmonary Embolism 12/05/2011 CHARLES DOYLE PA-C V70.0 ROUTINE GENERAL MEDICAL EXAMINATION AT [facility] 12/05/2011 ARIZA DO, JOSE ALBERTO K 786.05 Shortness Of Breath 12/05/2011 ARIZA DO, JOSE ALBERTO K 789.00 Abdominal Pain Unspecified Site 12/05/2011 ARIZA DO JOSE ALBERTO K V12.55 Personal History Of Pulmonary Embolism 12/05/2011 ARIZA DO, JOSE ALBERTO K V70.0 ROUTINE GENERAL MEDICAL EXAMINATION AT A HEALTH CARE FACILITY 12/05/2011 VALENCIA DOPSTER, CHERYL R 786.05 Shortness Of Breath 12/05/2011 VALENCIA DOPSTER, CHERYL R 789.00 Abdominal Pain Unspecified Site 12/05/2011 VALENCIA DOPSTER, CHERYL R V12.55 Personal History Of Pulmonary Embolism 12/05/2011 VALENCIA DOPSTER, CHERYL R V70.0 ROUTINE GENERAL MEDICAL EXAMINATION AT A [facility] 12/05/2011 ARIZA DO, JOSE ALBERTO K 786.05 Shortness Of Breath 12/05/2011 ARIZA DO, JOSE ALBERTO K 789.00 Abdominal Pain Unspecified Site 12/05/2011 ARIZA DO, JOSE ALBERTO K V12.55 Personal History Of Pulmonary Embolism 12/05/2011 ARIZA DO, JOSE ALBERTO K V70.0 ROUTINE GENERAL MEDICAL EXAMINATION AT A [facility] 12/05/2011 ARIZA DO, JOSE ALBERTO [...] HEALTH CARE FACILITY 12/05/2011 MORIS LOYOLA MD 786. 05 SHORTNESS OF BREATH 12/05/2011 MORIS LOYOLA MD 789. 00 ABDOMINAL PAIN UNSPECIFIED SITE 12/05/2011 MORIS LOYOLA MD V12. 55 PERSONAL HISTORY OF PULMONARY EMBOLISM 12/05/2011 MORIS LOYOLA MD V70. 0 ROUTINE GENERAL MEDICAL EXAMINATION AT A HEALTH CARE FACILITY 12/06/2011 V58.61 FAN G-TERM (CURRENT) USE OF ANTICOAGULANTS 12/06/2011 V58.61 FAN G-TERM (CURRENT) USE OF ANTICOAGULANTS 12/06/2011 V58.61 FAN G-TERM (CURRENT) USE OF ANTICOAGULANTS 12/06/2011 ARIZA DO, JOSE ALBERTO K V58.61 LONG-TERM (CURRENT) USE OF ANTICOAGULANTS 12/06/2011 ARIZA DO, JOSE ALBERTO K V58.61 LONG-TERM (CURRENT) USE OF ANTICOAGULANTS 12/06/2011 V58.61 FAN G-TERM (CURRENT) USE OF ANTICOAGULANTS 12/06/2011 CHARLES DOYLE PA-C V58.61 LONG-TERM (CURRENT) USE OF ANTICOAGULANTS 12/06/2011 ARIZA DO, JOSE ALBERTO K V58.61 LONG-TERM (CURRENT) USE OF ANTICOAGULANTS 12/06/2011 ARIZA DO, JOSE ALBERTO K V58.61 LONG-TERM (CURRENT) USE OF ANTICOAGULANTS 12/06/2011 V58.61 FAN G-TERM (CURRENT) USE OF ANTICOAGULANTS 12/06/2011 V58.61 FAN G-TERM (CURRENT) USE OF ANTICOAGULANTS 12/06/2011 V58.61 FAN G-TERM (CURRENT) USE OF ANTICOAGULANTS 12/06/2011 V58.61 FAN G-TERM (CURRENT) USE OF ANTICOAGULANTS 12/06/2011 V58.61 FAN G-TERM (CURRENT) USE OF ANTICOAGULANTS 12/06/2011 V58.61 FAN G-TERM (CURRENT) USE OF ANTICOAGULANTS 12/06/2011 V58.61 FAN G-TERM (CURRENT) USE OF ANTICOAGULANTS 12/06/2011 ARIZA DO, JOS EALBERTO K V58.61 LONG-TERM (CURRENT) USE OF ANTICOAGULANTS [...] USE OF ANTICOAGULANTS 12/06/2011 MORIS LOYOLA MD V58. 61 LONG-TERM (CURRENT) USE OF ANTICOAGULANTS 01/02/2012 Ot 244.0 POST SURGICAL HYPOTHYROID 01/02/2012 Ot 493.90 AST HMA, UNSPECIFIED 01/02/2012 Ot 724.5 BACK ACHE NOS 01/02/2012 Ot 780.57 UNS PECIFIED SLEEP APNEA 01/02/[address] PAIN NEC 01/02/2012 Ot 789.01 ABD OMINAL PAIN, RIGHT UPPER QUADRANT 01/02/2012 Ot V12.55 PER ENMA HISTORY OF PULMONARY EMBOLISM 01/15/2012 727.04 RAD IAL STYLOID TENOSYNOVITIS 01/15/2012 727.04 RAD IAL STYLOID TENOSYNOVITIS 01/15/2012 727.04 RAD IAL STYLOID TENOSYNOVITIS 01/15/2012 JOSE ALBERTO ARIZA DO 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 01/15/2012 JOSE ALBERTO ARIZA DO 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 01/15/2012 727.04 RAD IAL STYLOID TENOSYNOVITIS 01/15/2012 CHARLES DOYLE PA-C 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 01/15/2012 JOSE ALBERTO ARIZA DO 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 01/15/2012 JOSE ALBERTO ARZIA DO 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 01/15/2012 727.04 RAD IAL STYLOID TENOSYNOVITIS 01/15/2012 727.04 RAD IAL STYLOID TENOSYNOVITIS 01/15/2012 727.04 RAD IAL STYLOID TENOSYNOVITIS 01/15/2012 727.04 RAD IAL STYLOID TENOSYNOVITIS 01/15/2012 727.04 RAD IAL STYLOID TENOSYNOVITIS 01/15/2012 727.04 RAD IAL STYLOID TENOSYNOVITIS 01/15/2012 727.04 RAD IAL STYLOID TENOSYNOVITIS 01/15/2012 JOSE ALBERTO ARIZA DO 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 01/15/2012 JOSE ALBERTO ARIZA DO 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 01/15/2012 JOSE ALBERTO ARIZA DO 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 01/15/2012 JOSE ALBERTO ARIZA DO 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 01/15/2012 JOSE ALBERTO [...] ALBERTO K 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 01/15/2012 VALENCIA YORK, CHERYL R 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 01/15/2012 VIVEK DUMONT, CHARLES Santos 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 01/15/2012 ARIZA DO, JOSE ALBERTO K 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 01/15/2012 VALENCIA YORK, CHERYL R 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 01/15/2012 ARIZA [...] RADIAL STYLOID TENOSYNOVITIS 01/15/2012 MILLA NAM, MORIS 727. 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 01/17/2012 Ot 574.20 CHO LELITHIASIS NOS 01/17/2012 Ot 789.09 ABD OMINAL PAIN, OTHER SPECIFIED SITE 01/17/2012 Ot V12.51 HX- VENOUS THROMBOSIS EMBOLISM 01/17/2012 Ot V58.61 ANTICOAGULANTS,LT,CURRENT USE 01/17/2012 Ot V58.69 OTH MED,LT,CURRENT USE 01/19/2012 Ot 574.20 CHO LELITHIASIS NOS 01/19/2012 Ot 789.00 ABD OMINAL PAIN, UNSPECIFIED SITE 02/04/2012 Ot 414.00 COR ON ATHEROSCLER NOS TYPE VESSEL, NATIV 02/04/2012 Ot 575.11 CHR ONIC CHOLECYSTITIS 02/04/2012 Ot V45.81 AOR TOCORONARY BYPASS 02/04/2012 Ot V58.61 ANTICOAGULANTS,LT,CURRENT USE 03/18/2012 Ot 244.9 HYPO THYROIDISM NOS 03/18/2012 Ot 272.4 HYPE RLIPIDEMIA NEC/NOS 03/18/2012 Ot 278.00 OBE SITY, NOS 03/18/2012 Ot 414.01 COR ONARY ATHEROSCLEROSIS OF [place] CORON 03/18/2012 Ot 433.10 CAR OTID ARTERY OCCLUSION W O CEREBRAL IN 03/18/2012 Ot 780.57 UNS PECIFIED SLEEP APNEA 03/18/2012 Ot 786.52 VINI NFUL RESPIRATION 03/18/2012 Ot 790.29 OTH ER ABNORMAL GLUCOSE 03/18/2012 Ot V12.51 HX- VENOUS THROMBOSIS EMBOLISM 03/18/2012 Ot V12.55 PER ENMA HISTORY OF PULMONARY EMBOLISM 03/18/2012 Ot V58.61 ANTICOAGULANTS,LT,CURRENT USE 03/18/2012 Ot V85.43 BOD Y MASS INDEX 50.0-59.9, ADULT 03/19/2012 414.00 CAD 03/19/2012 414.00 CAD 03/19/2012 414.00 CAD 03/19/2012 JOSE ALBERTO ARIZA DO 414.00 CAD 03/19/2012 JOSE ALBERTO ARIZA DO 414.00 CAD 03/19/2012 414.00 CAD 03/19/2012 CHARLES DOYLE PA-C 414.00 CAD 03/19/2012 JOSE ALBERTO ARIZA DO 414.00 CAD 03/19/2012 JOSE ALBERTO ARIZA DO 414.00 CAD 03/19/2012 414.00 CAD 03/19/2012 414.00 [...] DO, JOSE ALBERTO K 414.00 CAD 03/19/2012 AIRZA DO, JOSE ALBERTO K 414.00 CAD 03/19/2012 DONI PALAFOX APRN S 414.00 CAD 03/19/2012 ARIZA DO, JOSE ALBERTO [...] JOSE ALBERTO K 414.00 CAD 04/20/2012 723.1 CERV ICALGIA 04/20/2012 723.1 CERV ICALGIA 04/20/2012 723.1 CERV ICALGIA 04/20/2012 ARIZA DO, JOSE ALBERTO K 723.1 CERVICALGIA 04/20/2012 ARIZA DO, JOSE ALBERTO K 723.1 CERVICALGIA 04/20/2012 723.1 CERV ICALGIA 04/20/2012 CHARLES DOYLE PA-C 723.1 CERVICALGIA 04/20/2012 ARIZA DO, JOSE ALBERTO K 723.1 CERVICALGIA 04/20/2012 ARIZA DO, JOSE ALBERTO K 723.1 CERVICALGIA 04/20/2012 723.1 CERV ICALGIA 04/20/2012 723.1 CERV ICALGIA 04/20/2012 723.1 CERV ICALGIA 04/20/2012 723.1 CERV ICALGIA 04/20/2012 723.1 CERV ICALGIA 04/20/2012 723.1 CERV ICALGIA 04/20/2012 723.1 CERV ICALGIA 04/20/2012 ARIZA DO, JOSE ALBERTO K 723.1 CERVICALGIA 04/20/2012 ARIZA DO, JOSE ALBERTO K 723.1 CERVICALGIA 04/20/2012 ARIZA DO, JOSE ALBERTO K 723.1 CERVICALGIA 04/20/2012 ARIZA DO, JOSE ALBERTO K 723.1 CERVICALGIA 04/20/2012 ARIZA DO, JOSE ALBERTO K 723.1 CERVICALGIA 04/20/2012 ARIZA DO, JOSE ALBERTO K 723.1 CERVICALGIA 04/20/2012 ARIZA DO, JOSE ALBERTO K 723.1 CERVICALGIA 04/20/2012 DONI PALAFOX APRN S 723.1 CERVICALGIA 04/20/2012 ARIZA DO, JOSE [...] K 244.9 UNSPECIFIED ACQUIRED HYPOTHYROIDISM 04/27/2012 244.9 UNSP ECIFIED ACQUIRED HYPOTHYROIDISM 04/27/2012 CHARLES DOYLE PA-C 244.9 UNSPECIFIED ACQUIRED HYPOTHYROIDISM 04/27/2012 ARIZA DO, JOSE ALBERTO K 244.9 UNSPECIFIED ACQUIRED HYPOTHYROIDISM 04/27/2012 ARIZA DO, JOSE ALBERTO K 244.9 UNSPECIFIED ACQUIRED HYPOTHYROIDISM 04/27/2012 244.9 UNSP ECIFIED ACQUIRED HYPOTHYROIDISM 04/27/2012 244.9 UNSP ECIFIED ACQUIRED HYPOTHYROIDISM 04/27/2012 244.9 UNSP ECIFIED ACQUIRED HYPOTHYROIDISM 04/27/2012 244.9 UNSP ECIFIED ACQUIRED HYPOTHYROIDISM 04/27/2012 244.9 UNSP ECIFIED ACQUIRED HYPOTHYROIDISM 04/27/2012 244.9 UNSP ECIFIED ACQUIRED HYPOTHYROIDISM 04/27/2012 244.9 UNSP ECIFIED ACQUIRED HYPOTHYROIDISM 04/27/2012 ARIZA DO, JOSE ALBERTO [...] ALBERTO K 244.9 UNSPECIFIED ACQUIRED HYPOTHYROIDISM 04/27/2012 CHERYL BIRMINGHAM APRN 244.9 UNSPECIFIED ACQUIRED HYPOTHYROIDISM 04/27/2012 CHARLES DOYLE PA-C 244.9 UNSPECIFIED ACQUIRED HYPOTHYROIDISM 04/27/2012 ARIZA DO, JOSE ALBERTO K 244.9 UNSPECIFIED ACQUIRED HYPOTHYROIDISM 04/27/2012 VALENCIA DOPSTER, CHERYL R 244.9 UNSPECIFIED ACQUIRED HYPOTHYROIDISM 04/27/2012 [...] ALBERTO K 466.0 BRONCHITIS, ACUTE 05/14/2012 466.0 BRON CHITIS, ACUTE 05/14/2012 CHARLES DOYLE PA-C 466.0 BRONCHITIS, ACUTE 05/14/2012 ARIZA DO, JOSE ALBERTO K 466.0 BRONCHITIS, ACUTE 05/14/2012 ARIZA DO, JOSE ALBERTO K 466.0 BRONCHITIS, ACUTE 05/14/2012 466.0 BRON CHITIS, ACUTE 05/14/2012 466.0 BRON CHITIS, ACUTE 05/14/2012 466.0 BRON CHITIS, ACUTE 05/14/2012 466.0 BRON CHITIS, ACUTE 05/14/2012 466.0 BRON CHITIS, ACUTE 05/14/2012 466.0 BRON CHITIS, ACUTE 05/14/2012 466.0 BRON CHITIS, ACUTE 05/14/2012 ARIZA DO, JOSE ALBERTO K [...] ALBERTO K 466.0 BRONCHITIS, ACUTE 05/14/2012 VALENCIA MAXN, CHERYL R 466.0 BRONCHITIS, ACUTE 05/14/2012 CHARLES DOYLE PA-C 466.0 BRONCHITIS, ACUTE 05/14/2012 ARIZA DO, JOSE ALBERTO K 466.0 BRONCHITIS, ACUTE 05/14/2012 VALENCIA DOPSTER, CHERYL R 466.0 BRONCHITIS, ACUTE 05/14/2012 ARIZA [...] K 466.0 BRONCHITIS, ACUTE 05/17/2012 Ot 429.3 CARD IOMEGALY 05/17/2012 Ot 786.05 SARA RTNESS OF BREATH 05/17/[address] PAIN NOS 05/17/2012 Ot V12.51 HX- VENOUS THROMBOSIS EMBOLISM 05/17/2012 Ot V12.55 PER ENMA HISTORY OF PULMONARY EMBOLISM 06/03/2012 ARIZA DO, [...] JOSE ALBERTO K 786.09 DYSPNEA 06/03/2012 VALENCIA YORK, CHERYL R 786.09 DYSPNEA 06/03/2012 CHARLES DOYLE PA-C 786.09 DYSPNEA 06/03/2012 ARIZA DO, JOSE ALBERTO K 786.09 DYSPNEA 06/03/2012 VALENCIA YORK, CHERYL R 786.09 DYSPNEA 06/03/2012 ARIZA DO, [...] 729.5 PAIN IN LIMB 06/10/2012 ARIZA DO, JOES ALBERTO K 729.5 PAIN IN LIMB 06/10/2012 JULI BIRMINGHAM APRNINA R 729.5 PAIN IN LIMB 06/10/2012 CHARLES DOYLE PA-C 729.5 PAIN IN LIMB 06/10/2012 ARIZA DO, JOSE ALBERTO K 729.5 PAIN IN LIMB 06/10/2012 VALENCIA YORK CHERYL R 729.5 PAIN IN LIMB 06/10/2012 [...] K 729.5 PAIN IN LIMB 06/10/2012 ARIZA JOSE ALBERTO MOYA K 729.5 PAIN IN LIMB 06/10/2012 CHRISTOPHER ARIZA DOA K 729.5 PAIN IN LIMB 06/20/2012 Ot 451.82 PHL EBITIS THROMBOPHLEBITIS,SUP VEINS U 06/20/2012 Ot 923.20 CON TUSION OF HAND(S) 06/20/2012 Ot 959.4 HAND INJURY NOS 06/20/2012 Ot E000.8 OTH ER EXTERNAL CAUSE STATUS 06/20/2012 Ot E849.0 ACC IDENT IN HOME 06/20/2012 Ot E928.9 ACC IDENT NOS 07/13/2012 ARIZA CHRISTOPHER MOYAA K 599.70 HEMATURIA 07/13/2012 ARIZA JOSE ALBERTO MOYA K 780.4 dizziness 07/13/2012 CHRISTOPHER ARIZA DOA K 788.1 pain during urination (dysuria) 07/13/2012 ARIZA CHRISTOPHER MOYAA K 599.70 HEMATURIA 07/13/2012 ARIZA CHRISTOPHER MOYAA K 780.4 dizziness 07/13/2012 ARIZA CHRISTOPHER MOYAA K 788.1 pain during urination (dysuria) 07/13/2012 599.70 HEM ATURIA 07/13/2012 780.4 dizz iness 07/13/2012 788.1 pain during urination (dysuria) 07/13/2012 599.70 HEM ATURIA 07/13/2012 780.4 dizz iness 07/13/2012 788.1 pain during urination (dysuria) 07/13/2012 599.70 HEM ATURIA 07/13/2012 780.4 dizz iness 07/13/2012 788.1 pain during urination (dysuria) 07/13/2012 599.70 HEM ATURIA 07/13/2012 780.4 dizz iness 07/13/2012 788.1 pain during urination (dysuria) 07/13/2012 599.70 HEM ATURIA 07/13/2012 780.4 DIZZ INESS 07/13/2012 788.1 PAIN DURING URINATION (DYSURIA) 07/13/2012 599.70 HEM ATURIA 07/13/2012 780.4 DIZZ INESS 07/13/2012 788.1 PAIN DURING URINATION (DYSURIA) 07/13/2012 599.70 HEM ATURIA 07/13/2012 780.4 DIZZ INESS 07/13/2012 788.1 PAIN DURING URINATION (DYSURIA) 07/13/2012 [...] K 599.70 HEMATURIA 07/13/2012 ARIZA DO, JOSE ALBRETO K 780.4 DIZZINESS 07/13/2012 ARIZA DO, JOSE [...] K 780.4 DIZZINESS 07/13/2012 ARIZA DO, JOSE ABLERTO K 788.1 PAIN DURING URINATION (DYSURIA) 07/13/2012 VIVIENNE DOPSTER, DONI S 599.70 HEMATURIA 07/13/2012 VIVIENNE DOPSTER, DONI S 780.4 DIZZINESS 07/13/2012 VIVIENNE DOPSTER, DONI S 788.1 PAIN DURING URINATION (DYSURIA) [...] 788.1 PAIN DURING URINATION (DYSURIA) 07/13/2012 VALENCIA DOPSTER, CHERYL R 599.70 HEMATURIA 07/13/2012 VALENCIA DOPSTER, CHERYL R 780.4 DIZZINESS 07/13/2012 VALENCIA DOPSTER, CHERYL R 788.1 PAIN DURING URINATION (DYSURIA) 07/13/2012 VIVEK DUMONT, CHARLES M 599.70 HEMATURIA 07/13/2012 CHARLES DOYLE PA-C M 780.4 DIZZINESS 07/13/2012 CHARLES DOYLE PA-C M 788.1 PAIN DURING URINATION (DYSURIA) 07/13/2012 ARIZA DO, JOSE ALBERTO K 599.70 HEMATURIA 07/13/2012 ARIZA DO, JOSE ALBERTO K 780.4 DIZZINESS 07/13/2012 ARIZA DO, JOSE ALBERTO K 788.1 PAIN DURING URINATION (DYSURIA) 07/13/2012 VALENCIA DOPSTER, CHERYL R 599.70 HEMATURIA 07/13/2012 VALENCIA DOPSTER, CHERYL R 780.4 DIZZINESS 07/13/2012 VALENCIA DOPSTER, CHERYL R 788.1 PAIN DURING URINATION (DYSURIA) [...] PAIN DURING URINATION (DYSURIA) 08/09/2012 Ot 847.0 SPRA IN OF NECK 08/09/2012 Ot 847.1 SPRA IN THORACIC REGION 08/09/2012 Ot 847.2 SPRA IN LUMBAR REGION 08/09/2012 Ot 959.09 INJ URY OF FACE AND NECK 08/09/2012 Ot E000.8 OTH ER EXTERNAL CAUSE STATUS 08/09/2012 Ot E849.0 ACC IDENT IN HOME 08/09/2012 Ot E880.9 FAL L ON STAIR/STEP NEC 08/31/2012 719.47 VINI N IN JOINT INVOLVING ANKLE AND FOOT 08/31/2012 845.00 UNS PECIFIED SITE OF ANKLE SPRAIN 08/31/2012 719.47 VINI N IN JOINT INVOLVING ANKLE AND FOOT 08/31/2012 845.00 UNS PECIFIED SITE OF ANKLE SPRAIN 08/31/2012 719.47 VINI N IN JOINT INVOLVING ANKLE AND FOOT 08/31/2012 845.00 UNS PECIFIED SITE OF ANKLE SPRAIN 08/31/2012 719.47 VINI N IN JOINT INVOLVING ANKLE AND FOOT 08/31/2012 845.00 UNS PECIFIED SITE OF ANKLE SPRAIN 08/31/2012 719.47 VINI N IN JOINT INVOLVING ANKLE AND FOOT 08/31/2012 845.00 UNS PECIFIED SITE OF ANKLE SPRAIN 08/31/2012 719.47 VINI N IN JOINT INVOLVING ANKLE AND FOOT 08/31/2012 845.00 UNS PECIFIED SITE OF ANKLE SPRAIN 08/31/2012 719.47 VINI N IN JOINT INVOLVING ANKLE AND FOOT 08/31/2012 845.00 UNS PECIFIED SITE OF ANKLE SPRAIN 08/31/2012 JOSE ALBERTO ARIZA DO 719.47 PAIN IN JOINT INVOLVING ANKLE AND FOOT 08/31/2012 CHRISTOPHER ARIZA DOA K 845.00 UNSPECIFIED SITE OF ANKLE SPRAIN 08/31/2012 JOSE ALBERTO ARIZA DO 719.47 PAIN IN JOINT INVOLVING ANKLE AND FOOT 08/31/2012 CHRISTOPHER ARIZA DOA K 845.00 UNSPECIFIED SITE OF ANKLE SPRAIN 08/31/2012 CHRISTOPHER ARIZA DOA Astrid 719.47 PAIN IN JOINT INVOLVING ANKLE AND FOOT 08/31/2012 CHRISTOPHER ARIZA DOA K 845.00 UNSPECIFIED SITE OF ANKLE SPRAIN 08/31/2012 CHRISTOPHER ARIZA DOA K 719.47 PAIN IN JOINT INVOLVING ANKLE AND FOOT 08/31/2012 ARIZA CHRISTOPHER MOYAA K 845.00 UNSPECIFIED SITE OF ANKLE SPRAIN 08/31/2012 CHRISTOPHER ARIZA DOA K 719.47 PAIN IN JOINT INVOLVING ANKLE AND FOOT 08/31/2012 ARIZA CHRISTOPHER MOYAA K 845.00 UNSPECIFIED SITE OF ANKLE SPRAIN 08/31/2012 CHRISTOPHER ARIZA DOA K 719.47 PAIN IN JOINT INVOLVING ANKLE [...] UNSPECIFIED SITE OF ANKLE SPRAIN 08/31/2012 VALENCIA YORK CHERYL R 719.47 PAIN IN JOINT INVOLVING ANKLE AND FOOT 08/31/2012 VALENCIA YORK, CHERYL R 845.00 UNSPECIFIED SITE OF ANKLE SPRAIN 08/31/2012 CHARLES DOYLE PA-C 719.47 PAIN IN JOINT INVOLVING ANKLE AND FOOT 08/31/2012 CHARLES DOYLE PA-C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 50-59.9 , ADULT 04/21/2015 CHARLES LOPEZ MD, Ot E66.01 MORBID (SEVERE) OBESITY DUE TO EXCESS CA 04/21/2015 CHARLES LOPEZ MD, Ot T81.4XXA INFECTION FOLLOWING A PROCEDURE, INITIAL 04/21/2015 CHARLES LOPEZ MD, Ot Z79.01 BARREL WATERER (CURRENT) USE OF ANTICOAGULANT 04/21/2015 CHARLES LOPEZ MD Ot Z79.899 OTHER BARREL WATERER (CURRENT) DRUG THERAPY 04/21/2015 CHARLES LOPEZ MD, Ot Z90.710 ACQUIRED ABSENCE OF BOTH CERVIX AND UTER 05/02/2015 CHAS RODARTE DO Ot D25.9 05/02/2015 CAYDEN MOYA, CHAS Patel Ot Z01.812 05/02/2015 CAYDEN MOYA, CHAS Patel Ot Z11.2 05/02/2015 CHEN INFANTE APRN Ot J06.9 05/10/2015 CAYDEN MOYA, CHAS Patel Ot D25.9 05/10/2015 [facility] Patel Ot Z01.812 05/10[facility]2015 [facility] Patel Ot Z11.2 05/10/2015 CHEN INFANTE APRN Ot J06.9 05/15/2015 BESSY KARENA MOYAA Astrid Ot E66.01 MORBID (SEVERE) OBESITY DUE TO EXCESS CA 05/15/2015 KARENA DOHERTY DOSantana Resendiz Ot K63.89 OTHER SPECIFIED DISEASES OF INTESTINE 05/15/2015 NORIS DOHERTY DO Ot N39.0 URINARY TRACT INFECTION, SITE NOT SPECIF 05/15/2015 NORIS DOHERTY DO Ot Z79.01 BARREL WATERER (CURRENT) USE OF ANTICOAGULANT 05/15/2015 NORIS DOHERTY DO Ot Z90.710 ACQUIRED ABSENCE OF BOTH CERVIX AND UTER 05/31/2015 BALDEV LITTLEJOHN DO Ot R10. 2 06/08/2015 BALDEV LITTLEJOHN DO Ot R10. 2 06/12/2015 MIGDALIA JIMENEZ DO Ot D37.4 06/12/2015 MIGDALIA JIMENEZ DO Ot E03.9 06/12/2015 MIGDALIA JIMENEZ DO Ot Z86.010 06/21/2015 MICHELE COTTON Ot E66.9 OBESITY, UNSPECIFIED 06/21/2015 MICHELE COTTON Ot I51.7 CARDIOMEGALY 06/21/2015 MICHELE COTTON Ot J44.9 CHRONIC OBSTRUCTIVE PULMONARY DISEASE, U 06/21/2015 MICHELE COTTON Ot K76.0 FATTY (CHANGE OF) LIVER, NOT ELSEWHERE C 06/21/2015 MICHELE COTTON Ot R91.8 OTHER NONSPECIFIC ABNORMAL FINDING OF GUS 06/21/2015 MICHELE COTTON Ot Z79.01 BARREL WATERER (CURRENT) USE OF ANTICOAGULANT 06/21/2015 MICHELE COTTON Ot Z86.711 PERSONAL HISTORY OF PULMONARY EMBOLISM 06/22/2015 MIGDALIA JIMENEZ DO Ot D37.4 06/22/2015 MIGDALIA JIMENEZ DO Ot E03.9 06/22/2015 MIGDALIA JIMENEZ DO Ot Z86.010 08/10/2015 Ot E66.01 MOR BID (SEVERE) OBESITY DUE TO EXCESS CA 08/10/2015 Ot I10 ESSENT IAL (PRIMARY) HYPERTENSION 08/10/2015 Ot I25.10 ATH SCL HEART DISEASE OF [place] CORONARY 08/10/2015 Ot I51.7 CARD IOMEGALY 08/10/2015 Ot J44.9 CANNONEER JED OBSTRUCTIVE PULMONARY DISEASE, U 08/10/2015 Ot R55 SYNCOP E AND COLLAPSE 08/10/2015 Ot S09.90XA U NSPECIFIED INJURY OF HEAD, INITIAL ENCO 08/10/2015 Ot W01.0XXA F ALL SAME LEV FROM SLIP/TRIP W/O STRIKE 08/10/[address] [facility] NON-INSTITUT (PRIVATE 08/10/2015 Ot Y99.8 OTHE R EXTERNAL CAUSE STATUS 08/10/2015 Ot Z85.3 PERS ONAL HISTORY OF MALIGNANT NEOPLASM O 08/10/2015 Ot Z86.718 PE RSONAL HISTORY OF OTHER VENOUS THROMBO 08/10/2015 Ot Z98.1 ARTH RODESIS STATUS 09/04/2015 SHALOM RAMÍREZ APRN Ot E66 .9 OBESITY, UNSPECIFIED 09/04/2015 RAMÍREZ, PETER J DOPSTER Ot I10 ESSENTIAL (PRIMARY) HYPERTENSION 09/04/2015 SHALOM RAMÍREZ DOPSTER Ot I51 .7 CARDIOMEGALY 09/04/2015 SHALOM RAMÍREZ DOPSTER Ot J44 .9 CHRONIC OBSTRUCTIVE PULMONARY DISEASE, U 09/04/2015 SHALOM RAMÍREZ DOPSTER Ot R07.89 OTHER CHEST PAIN 09/06/2015 SHALOM RAMÍREZ DOPSTER Ot E66 .9 OBESITY, UNSPECIFIED 09/06/2015 SHALOM RAMÍREZ DOPSTER Ot I10 ESSENTIAL (PRIMARY) HYPERTENSION 09/06/2015 SHALOM RAMÍREZ DOPSTER Ot I51 .7 CARDIOMEGALY 09/06/2015 SHALOM RAMÍREZ DOPSTER Ot J44 .9 CHRONIC OBSTRUCTIVE PULMONARY DISEASE, U 09/06/2015 SHALOM RAMÍREZ DOPSTER Ot R07.89 OTHER CHEST PAIN 09/06/2015 REAGAN MCNEILL MD Ot E03. 9 HYPOTHYROIDISM, UNSPECIFIED 09/06/2015 REAGAN MCNEILL MD Ot E11. 9 TYPE 2 DIABETES MELLITUS WITHOUT COMPLIC 09/06/2015 REAGAN MCNEILL MD Ot E66. 01 MORBID (SEVERE) OBESITY DUE TO EXCESS CA 09/06/2015 REAGAN MCNEILL MD Ot E78. 2 MIXED HYPERLIPIDEMIA 09/06/2015 REAGAN MCNEILL MD Ot E78. 5 HYPERLIPIDEMIA, UNSPECIFIED 09/06/2015 REAGAN MCNEILL MD Ot I10 ESSENTIAL (PRIMARY) HYPERTENSION 09/06/2015 REAGAN MCNEILL MD Ot I25. 10 ATHSCL HEART DISEASE OF [place] CORONARY 09/06/2015 REAGAN MCNEILL MD Ot J44. 9 CHRONIC OBSTRUCTIVE PULMONARY DISEASE, U 09/06/2015 REAGAN MCNEILL MD Ot R55 SYNCOPE AND COLLAPSE 09/06/2015 REAGAN MCNEILL MD Ot R94. 39 ABNORMAL RESULT OF OTHER CARDIOVASCULAR 09/06/2015 REAGAN MCNEILL MD Ot Z01.810 ENCOUNTER FOR PREPROCEDURAL CARDIOVASCUL 09/06/2015 REAGAN MCNEILL MD Ot Z01.811 ENCOUNTER FOR PREPROCEDURAL RESPIRATORY 09/06/2015 REAGAN MCNEILL MD Ot Z01.812 ENCOUNTER FOR PREPROCEDURAL LABORATORY E 09/06/2015 REAGAN MCNEILL MD Ot Z11. 2 ENCOUNTER FOR SCREENING FOR OTHER BACTER 09/06/2015 REAGAN MCNEILL MD Ot Z68. 43 BODY MASS INDEX (BMI) 50-59.9 , ADULT 09/06/2015 REAGAN MCNEILL MD Ot Z79. 01 BARREL WATERER (CURRENT) USE OF ANTICOAGULANT 09/06/2015 REAGAN MCNEILL MD Ot Z79.899 OTHER [facility] (CURRENT) DRUG THERAPY 09/06/2015 REAGAN MCNEILL MD Ot Z86.711 PERSONAL HISTORY OF PULMONARY EMBOLISM 09/06/2015 REAGAN MCNEILL MD Ot E78. 2 MIXED HYPERLIPIDEMIA 09/06/2015 REAGAN MCNEILL MD Ot I10 ESSENTIAL (PRIMARY) HYPERTENSION 09/06/2015 REAGAN MCNEILL MD Ot I25. 10 ATHSCL HEART DISEASE OF [place] CORONARY 09/06/2015 REAGAN MCNEILL MD Ot R55 SYNCOPE AND COLLAPSE 09/06/2015 REAGAN MCNEILL MD Ot Z01.810 ENCOUNTER FOR PREPROCEDURAL CARDIOVASCUL 09/06/2015 REAGAN MCNEILL MD Ot Z01.811 ENCOUNTER FOR PREPROCEDURAL RESPIRATORY 09/06/2015 REAGAN MCNEILL MD Ot Z01.812 ENCOUNTER FOR PREPROCEDURAL LABORATORY E 09/06/2015 REAGAN MCNEILL MD Ot Z11. 2 ENCOUNTER FOR SCREENING FOR OTHER BACTER 09/11/2015 REAGAN MCNEILL MD Ot E78. 2 MIXED HYPERLIPIDEMIA 09/11/2015 REAGAN MCNEILL MD Ot I10 ESSENTIAL (PRIMARY) HYPERTENSION 09/11/2015 REAGAN MCNEILL MD Ot I25. 10 ATHSCL HEART DISEASE OF [place] CORONARY 09/11/2015 REAGAN MCNEILL MD Ot R55 SYNCOPE AND COLLAPSE 09/11/2015 REAGAN MCNEILL MD Ot Z01.810 ENCOUNTER FOR PREPROCEDURAL CARDIOVASCUL 09/11/2015 REAGAN MCNEILL MD Ot Z01.811 ENCOUNTER FOR PREPROCEDURAL RESPIRATORY 09/11/2015 REAGAN MCNEILL MD Ot Z01.812 ENCOUNTER FOR PREPROCEDURAL LABORATORY E 09/11/2015 REAGAN MCNEILL MD Ot Z11. 2 ENCOUNTER FOR SCREENING FOR OTHER BACTER 09/13/2015 REAGAN MCNEILL MD Ot E03. 9 HYPOTHYROIDISM, UNSPECIFIED 09/13/2015 REAGAN MCNEILL MD Ot E11. 9 TYPE 2 DIABETES MELLITUS WITHOUT COMPLIC 09/13/2015 REAGAN MCNEILL MD Ot E66. 01 MORBID (SEVERE) OBESITY DUE TO EXCESS CA 09/13/2015 REAGAN MCNEILL MD Ot E78. 5 HYPERLIPIDEMIA, UNSPECIFIED 09/13/2015 REAGAN MCNEILL MD Ot I10 ESSENTIAL (PRIMARY) HYPERTENSION 09/13/2015 REAGAN MCNEILL MD Ot I25. 10 ATHSCL HEART DISEASE OF [place] CORONARY 09/13/2015 REAGAN MCNEILL MD Ot J44. 9 CHRONIC OBSTRUCTIVE PULMONARY DISEASE, U 09/13/2015 REAGAN MCNEILL MD Ot R55 SYNCOPE AND COLLAPSE 09/13/2015 REAGAN MCNEILL MD Ot R94. 39 ABNORMAL RESULT OF OTHER CARDIOVASCULAR 09/13/2015 REAGAN MCNEILL MD Ot Z68. 43 BODY MASS INDEX (BMI) 50-59.9 , ADULT 09/13/2015 REAGAN MCNEILL MD Ot Z79. 01 BARREL WATERER (CURRENT) USE OF ANTICOAGULANT 09/13/2015 REAGAN MCNEILL MD Ot Z79.899 OTHER BARREL WATERER (CURRENT) DRUG THERAPY 09/13/2015 REAGAN MCNEILL MD Ot Z86.711 PERSONAL HISTORY OF PULMONARY EMBOLISM 10/04/2015 REAGAN MCNEILL MD Ot E03. 9 HYPOTHYROIDISM, UNSPECIFIED 10/04/2015 REAGAN MCNEILL MD Ot E11. 9 TYPE 2 DIABETES MELLITUS WITHOUT COMPLIC 10/04/2015 REAGAN MCNEILL MD Ot E66. 01 MORBID (SEVERE) OBESITY DUE TO EXCESS CA 10/04/2015 REAGAN MCNEILL MD Ot E78. 5 HYPERLIPIDEMIA, UNSPECIFIED 10/04/2015 REAGAN MCNEILL MD Ot I10 ESSENTIAL (PRIMARY) HYPERTENSION 10/04/2015 REAGAN MCNEILL MD Ot I25. 10 ATHSCL HEART DISEASE OF [place] CORONARY 10/04/2015 REAGAN MCNEILL MD Ot J44. 9 CHRONIC OBSTRUCTIVE PULMONARY DISEASE, U 10/04/2015 REAGAN MCNEILL MD Ot R55 SYNCOPE AND COLLAPSE 10/04/2015 REAGAN MCNEILL MD Ot R94. 39 ABNORMAL RESULT OF OTHER CARDIOVASCULAR 10/04/2015 REAGAN MCNEILL MD Ot Z68. 43 BODY MASS INDEX (BMI) 50-59.9 , ADULT 10/04/2015 REAGAN MCNEILL MD Ot Z79. 01 [facility] (CURRENT) USE OF ANTICOAGULANT 10/04/2015 REAGAN MCNEILL MD Ot Z79.899 OTHER BARREL WATERER (CURRENT) DRUG THERAPY 10/04/2015 REAGAN MCNEILL MD Ot Z86.711 PERSONAL HISTORY OF PULMONARY EMBOLISM 02/15/2016 Ot 626.8 MENS TRUAL DISORDER NEC 02/15/2016 Ot V72.63 PRE -PROCEDURAL LABORATORY EXAMINATION 02/15/2016 Ot V74.8 SCRE EN-BACTERIAL DIS NEC 02/15/2016 Ot 574.20 CHO LELITHIASIS NOS 02/15/2016 Ot V72.83 EXA M PRE- OPERATIVE NEC 02/15/2016 Ot V74.8 SCRE EN-BACTERIAL DIS NEC 02/15/2016 Ot 723.1 CERV ICALGIA 02/15/2016 Ot V45.4 ARTH RODESIS STATUS 02/15/2016 Ot 723.0 CERV ICAL SPINAL STENOSIS 02/15/2016 Ot V64.3 NO P ROGE FOR REASONS NEC 02/15/2016 Ot 723.1 CERV ICALGIA 02/15/2016 Ot 780.4 DIZZ INESS AND GIDDINESS 02/15/2016 Ot 368.9 VISU AL DISTURBANCE NOS 02/15/2016 Ot 723.1 CERV ICALGIA 02/15/2016 Ot 780.4 DIZZ INESS AND GIDDINESS 02/15/2016 Ot V81.5 SCRE EN FOR NEPHROPATHY 02/15/2016 CHARLES FREED Ot 611.71 MASTODYNIA 02/15/2016 CHARLES FREED Ot 610 .3 FIBROSCLEROSIS OF BREAST 02/15/2016 GARETT NAM ACE Z Ot V58.6 1 ANTICOAGULANTS,LT,CURRENT USE 02/15/2016 GARETT NAM ACE Z Ot V58.8 3 ENCOUNTER FOR THERAPEUTIC DRUG MONITORIN 02/15/2016 CHARLES FREED Ot 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 02/15/2016 CHARLES FREED Ot 424 .0 MITRAL VALVE DISORDER 02/15/2016 CHARLES FREED Ot [...] CHEST PAIN NOS 02/15/2016 CHAS RODARTE DO S Ot 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 02/15/2016 CHAS RODARTE DO S Ot 625.9 FEM GENITAL SYMPTOMS NOS 02/15/2016 CHAS RODARTE DO Ot 626.8 MENSTRUAL DISORDER NEC 02/15/2016 CHAS RODARTE DO Ot 627.1 POSTMENOPAUSAL BLEEDING 02/15/2016 CHAS RODARTE DO Ot V72.84 EXAM PRE-OPERATIVE NOS 02/15/2016 CHAS RODARTE DO Ot V74.8 SCREEN-BACTERIAL DIS NEC 02/15/2016 CHAS RODARTE DO S Ot 789.03 ABDOMINAL PAIN, RIGHT LOWER QUADRANT 02/15/2016 CHARLES FREED Ot 729 .5 PAIN IN LIMB 02/15/2016 CATERINA SHAH DO Ot 278. 1 LOCALIZED ADIPOSITY 02/15/2016 CATERINA SHAH DO Ot 493. 90 ASTHMA, UNSPECIFIED 02/15/2016 CATERINA SHAH DO Ot 786. 09 RESPIRATORY ABNORM NEC 02/15/2016 BALDEV LITTLEJOHN DO Ot 569. 3 RECTAL ANAL HEMORRHAGE 02/15/2016 BALDEV LITTLEJOHN DO Ot V72. 84 EXAM PRE-OPERATIVE NOS 02/15/2016 CHAS RODARTE DO S Ot 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 02/15/2016 CHAS RODARTE DO S Ot 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 ENDOMETRIAL HYPERPLASIA WITHOUT 02/15/2016 CHAS RODARTE DO Ot V25.42 IUD SURVEILLANCE 02/15/2016 CHAS RODARTE DO Ot R10.2 PELVIC AND PERINEAL PAIN 02/15/2016 BALDEV LITTLEJOHN DO Ot R10. 2 PELVIC AND PERINEAL PAIN 02/15/2016 BALDEV LITTLEJOHN DO Ot R10. 10 UPPER ABDOMINAL PAIN, UNSPECIFIED 02/15/2016 BALDEV LITTLEJOHN DO Ot Z01.818 ENCOUNTER FOR OTHER PREPROCEDURAL EXAMIN 02/15/2016 CAYDEN MOYACHAS Ot D25.9 LEIOMYOMA OF UTERUS, UNSPECIFIED 02/15/2016 [...] APRN Ot I25.10 ATHSCL HEART DISEASE OF [place] CORONARY 02/16/2016 SHALOM RAMÍREZ APRN Ot R07 .9 CHEST PAIN, UNSPECIFIED 02/16/2016 SHALOM RAMÍREZ APRN Ot Z79.01 BARREL WATERER (CURRENT) USE OF ANTICOAGULANT 02/16/2016 SHALOM RAMÍREZ APRN Ot Z79.899 OTHER BARREL WATERER (CURRENT) DRUG THERAPY 02/16/2016 SHALOM RAMÍREZ APRN Ot Z86.711 PERSONAL HISTORY OF PULMONARY EMBOLISM 02/18/2016 SHALOM RAMÍREZ APRN Ot I25.10 ATHSCL HEART DISEASE OF [place] CORONARY 02/18/2016 SHALOM RAMÍREZ APRN Ot R07 .9 CHEST PAIN, UNSPECIFIED 02/18/2016 SHALOM RAMÍREZ APRN Ot Z79.01 [facility] (CURRENT) USE OF ANTICOAGULANT 02/18/2016 SHALOM RAMÍREZ APRN Ot Z79.899 OTHER BARREL WATERER (CURRENT) DRUG THERAPY 02/18/2016 SHALOM RAMÍREZ APRN Ot Z86.711 PERSONAL HISTORY OF PULMONARY EMBOLISM 02/22/2016 SHALOM RAMÍREZ APRN Ot I25.10 ATHSCL HEART DISEASE OF [place] CORONARY 02/22/2016 SHALOM RAMÍREZ APRN Ot R07 .9 CHEST PAIN, UNSPECIFIED 02/22/2016 SHALOM RAMÍREZ APRN Ot Z79.01 BARREL WATERER (CURRENT) USE OF ANTICOAGULANT 02/22/2016 SHALOM RAMÍREZ DOPSTER Ot Z79.899 OTHER BARREL WATERER (CURRENT) DRUG THERAPY 02/22/2016 SHALOM RAMÍREZ DOPSTER Ot Z86.711 PERSONAL HISTORY OF PULMONARY EMBOLISM 07/18/2016 KAVYA PATRICK DOPSTER Ot E66.01 MORBID (SEVERE) OBESITY DUE TO EXCESS CA 07/18/2016 KAVYA PATRICK DOPSTER Ot R10.84 GENERALIZED ABDOMINAL PAIN 07/18/2016 KAVYA PATRICK DOPSTER Ot Z68.43 BODY MASS INDEX (BMI) 50-59.9 , ADULT 08/07/2016 CELINA KAVYA Jeffrey DOPSTER Ot E66.01 MORBID (SEVERE) OBESITY DUE TO EXCESS CA 08/07/2016 PATRICK, KAVYA Jeffrey DOPSTER Ot R10.84 GENERALIZED ABDOMINAL PAIN 08/07/2016 PATRICK KAVYA Murphy DOPSTER Ot Z68.43 BODY MASS INDEX (BMI) 50-59.9 , ADULT 08/15/2016 PATRICK KAVYA Murphy DOPSTER Ot E66.01 MORBID (SEVERE) OBESITY DUE TO EXCESS CA 08/15/2016 PATRICKKAVYA COOLEY DOPSTER Ot R10.84 GENERALIZED ABDOMINAL PAIN 08/15/2016 PATRICK, KAVYA L DOPSTER Ot Z68.43 BODY MASS INDEX (BMI) 50-59.9 , ADULT 09/04/2016 MIRIAM SPENCER [employer] MANAGER Ot E66.01 MORBID (SEVERE) OBESITY DUE TO EXCESS CA 09/04/2016 TJ MIRIAM [employer] MANAGER Ot I10 ESSENTIAL (PRIMARY) HYPERTENSION 09/04/2016 MIRIAM SPENCER [employer] MANAGER Ot I25.10 ATHSCL HEART DISEASE OF [place] CORONARY 09/04/2016 MIRIAM SPENCER [employer] MANAGER Ot M17.11 UNILATERAL PRIMARY OSTEOARTHRITIS, RIGHT 09/04/2016 TJ MIRIAM [employer] MANAGER Ot 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 09/04/2016 MIRIAM SPENCERP Ot S63.501A UNSPECIFIED SPRAIN OF RIGHT WRIST, INITI 09/04/2016 MIRIAM SPENCERP Ot S69.91XA UNSP INJURY OF RIGHT WRIST, HAND AND FIN 09/04/2016 MIRIAM SPENCERP Ot S89.91XA UNSPECIFIED INJURY OF RIGHT LOWER LEG, I 09/04/2016 MIRIAM SPENCER [employer] MANAGER Ot W05.0XXA FALL FROM NON-MOVING WHEELCHAIR, INITIAL 09/04/2016 TJMIRIAM YusufP Ot Y99.8 OTHER EXTERNAL CAUSE STATUS 09/04/2016 TJMIRIAM YusufP Ot Z79.899 OTHER BARREL WATERER (CURRENT) DRUG THERAPY 09/04/2016 TJMIRIAM Yusuf Ot Z86.718 PERSONAL HISTORY OF OTHER VENOUS THROMBO 09/30/2016 REAGAN MCNEILL MD Ot Z51. 81 ENCOUNTER FOR THERAPEUTIC DRUG LEVEL MON 09/30/2016 REAGAN MCNEILL MD, Ot Z79. 01 BARREL WATERER (CURRENT) USE OF ANTICOAGULANT 09/30/2016 REAGAN MCNEILL MD, Ot Z86.711 PERSONAL HISTORY OF PULMONARY EMBOLISM 10/14/2016 MIRIAM SPENCER Ot E66.01 MORBID (SEVERE) OBESITY DUE TO EXCESS CA 10/14/2016 MIRIAM SPENCERP Ot I10 ESSENTIAL (PRIMARY) HYPERTENSION 10/14/2016 MIRIAM SPENCER Ot I25.10 ATHSCL HEART DISEASE OF [place] CORONARY 10/14/2016 MIRIAM SPENCERP Ot M17.11 UNILATERAL [...] W05.0XXA FALL FROM NON-MOVING WHEELCHAIR, INITIAL 10/14/2016 TJMIRIAM YusufP Ot Y99.8 OTHER EXTERNAL CAUSE STATUS 10/14/2016 MIRIAM SPENCERP Ot Z79.899 OTHER [facility] (CURRENT) DRUG THERAPY 10/14/2016 MIRIAM SPENCER Ot Z86.718 PERSONAL HISTORY OF OTHER VENOUS THROMBO 10/16/2016 MIRIAM SPENCERP Ot E66.01 MORBID (SEVERE) OBESITY DUE TO EXCESS CA 10/16/2016 MIRIAM SPENCERP Ot I10 ESSENTIAL (PRIMARY) HYPERTENSION 10/16/2016 MIRIAM SPENCERP Ot I25.10 ATHSCL HEART DISEASE OF [place] CORONARY 10/16/2016 MIRIAM SPENCER Ot M17.11 UNILATERAL PRIMARY OSTEOARTHRITIS, RIGHT 10/16/2016 MIRIAM SPENCER Ot 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 81 ENCOUNTER FOR THERAPEUTIC DRUG LEVEL MON 10/30/2016 REAGAN MCNEILL MD Ot Z79. 01 BARREL WATERER (CURRENT) USE OF ANTICOAGULANT 10/30/2016 REAGAN MCNEILL MD Ot Z86.711 PERSONAL HISTORY OF PULMONARY EMBOLISM 11/06/2016 REAGAN MCNEILL MD Ot Z51. 81 ENCOUNTER FOR THERAPEUTIC DRUG LEVEL MON 11/06/2016 REAGAN MCNEILL MD Ot Z79. 01 BARREL WATERER (CURRENT) USE OF ANTICOAGULANT 11/06/2016 REAGAN MCNEILL MD Ot Z86.711 PERSONAL HISTORY OF PULMONARY EMBOLISM 12/28/2016 REAGAN MCNEILL MD Ot Z51. 81 ENCOUNTER FOR THERAPEUTIC DRUG LEVEL MON 12/28/2016 REAGAN MCNEILL MD Ot Z79. 01 [facility] (CURRENT) USE OF ANTICOAGULANT 12/28/2016 REAGAN MCNEILL MD Ot Z86.711 PERSONAL HISTORY OF PULMONARY EMBOLISM 12/28/2016 NORIS DOHERTY DO Ot E03.9 HYPOTHYROIDISM, UNSPECIFIED 12/28/2016 NORIS DOHERTY DO Ot E66.01 MORBID (SEVERE) OBESITY DUE TO EXCESS CA 12/28/2016 NORIS DOHERTY DO Astrid Ot E78.00 PURE HYPERCHOLESTEROLEMIA, UNSPECIFIED 12/28/2016 BESSY NORIS K Ot G44.209 TENSION-TYPE HEADACHE, UNSPECIFIED, NOT 12/28/2016 BESSY NORIS K Ot G47.30 SLEEP APNEA, UNSPECIFIED 12/28/2016 BESSY DO NORIS K Ot I10 ESSENTIAL (PRIMARY) HYPERTENSION 12/28/2016 BESSY NORIS Astrid Ot I25.10 ATHSCL HEART DISEASE OF [place] CORONARY 12/28/2016 BESSY NORIS Astrid Ot I73.9 PERIPHERAL VASCULAR DISEASE, UNSPECIFIED 12/28/2016 BESSY NORIS K Ot J45.909 UNSPECIFIED ASTHMA, UNCOMPLICATED 12/28/2016 BESSY NORIS K Ot K21.9 GASTRO-ESOPHAGEAL REFLUX DISEASE WITHOUT 12/28/2016 BESSY NORIS Astrid Ot M19.90 UNSPECIFIED OSTEOARTHRITIS, UNSPECIFIED 12/28/2016 BESSY NORIS K Ot R51 HEADACHE 12/28/2016 BESSY DO NORIS K Ot Z79.01 BARREL WATERER (CURRENT) USE OF ANTICOAGULANT 12/28/2016 BESSY NORIS K Ot Z80.0 FAMILY HISTORY OF MALIGNANT NEOPLASM OF 12/28/2016 BESSY NROIS Ot Z82.49 FAMILY HX OF ISCHEM HEART DIS AND OTH DI 12/28/2016 BESSY NORIS Astrid Ot Z86.718 PERSONAL HISTORY OF OTHER VENOUS THROMBO 12/28/2016 BESSY NORIS Astrid Ot Z87.19 PERSONAL HISTORY OF OTHER DISEASES OF TH 12/28/2016 BESSY MOYAKARENAA Astrid Ot Z87.448 PERSONAL HISTORY OF OTHER DISEASES OF UR 12/28/2016 BESSY NORIS MOYA Ot Z90.49 ACQUIRED ABSENCE OF OTHER SPECIFIED PART 12/28/2016 BESSY NORIS K Ot Z90.710 ACQUIRED ABSENCE OF BOTH CERVIX AND UTER 12/30/2016 NORIS DOHERTY DO Ot E03.9 HYPOTHYROIDISM, UNSPECIFIED 12/30/2016 BESSY DO NORIS K Ot E66.01 MORBID (SEVERE) OBESITY DUE TO EXCESS CA 12/30/2016 BESSY NORIS K Ot E78.00 PURE HYPERCHOLESTEROLEMIA, UNSPECIFIED 12/30/2016 BESSY DONORIS Ot G44.209 TENSION-TYPE HEADACHE, UNSPECIFIED, NOT 12/30/2016 NORIS DOHERTY DO Ot G47.30 SLEEP APNEA, UNSPECIFIED 12/30/2016 NORIS DOHERTY DO Ot I10 ESSENTIAL (PRIMARY) HYPERTENSION 12/30/2016 NORIS DOHERTY DO Ot I25.10 ATHSCL HEART DISEASE OF [place] CORONARY 12/30/2016 NORIS DOHERTY DO Ot I73.9 PERIPHERAL VASCULAR DISEASE, UNSPECIFIED 12/30/2016 NORIS DOHERTY DO Ot J45.909 UNSPECIFIED ASTHMA, UNCOMPLICATED 12/30/2016 NORIS DOHERTY DO Ot K21.9 GASTRO-ESOPHAGEAL REFLUX DISEASE WITHOUT 12/30/2016 NORIS DOHERTY DO Ot M19.90 UNSPECIFIED OSTEOARTHRITIS, UNSPECIFIED 12/30/2016 NORIS DOHERTY DO Ot R51 HEADACHE 12/30/2016 NORIS DOHERTY DO Ot Z79.01 [facility] (CURRENT) USE OF ANTICOAGULANT 12/30/2016 NORIS DOHERTY [...] ACQUIRED ABSENCE OF OTHER SPECIFIED PART 12/30/2016 NORIS DOHERTY DO Ot Z90.710 ACQUIRED ABSENCE OF BOTH CERVIX AND UTER 01/03/2017 NORIS DOHERTY DO Ot E03.9 HYPOTHYROIDISM, UNSPECIFIED 01/03/2017 NORIS DOHERTY DO Ot E66.01 MORBID (SEVERE) OBESITY DUE TO EXCESS CA 01/03/2017 NORIS DOHERTY DO Ot E78.00 PURE HYPERCHOLESTEROLEMIA, UNSPECIFIED 01/03/2017 NORIS DOHERTY DO Ot G44.209 TENSION-TYPE HEADACHE, UNSPECIFIED, NOT 01/03/2017 NORIS DOHERTY DO Ot G47.30 SLEEP APNEA, UNSPECIFIED 01/03/2017 NORIS DOHERTY DO K Ot I10 ESSENTIAL (PRIMARY) HYPERTENSION 01/03/2017 NORIS DOHERTY DO Ot I25.10 ATHSCL HEART DISEASE OF [place] CORONARY 01/03/2017 BESSY MOYA NORIS Resendiz Ot I73.9 PERIPHERAL VASCULAR DISEASE, UNSPECIFIED 01/03/2017 NORIS DOHERTY DO Ot J45.909 UNSPECIFIED ASTHMA, UNCOMPLICATED 01/03/2017 NORIS DOHERTY DO Ot K21.9 GASTRO-ESOPHAGEAL REFLUX DISEASE WITHOUT 01/03/2017 BESSY MOYA NORIS Resendiz Ot M19.90 UNSPECIFIED OSTEOARTHRITIS, UNSPECIFIED 01/03/2017 BESSY MOYA NORIS Resendiz Ot R51 HEADACHE 01/03/2017 BESSY MOYA NORIS Resendiz Ot Z79.01 [facility] (CURRENT) USE OF ANTICOAGULANT 01/03/2017 BESSY MOYA NORIS Resendiz Ot Z80.0 FAMILY HISTORY OF MALIGNANT NEOPLASM OF 01/03/2017 NORIS DOHERTY DO Ot Z82.49 FAMILY HX [...] OTHER SPECIFIED PART 01/03/2017 BESSY MOYA NORIS Resendiz Ot Z90.710 ACQUIRED ABSENCE OF BOTH CERVIX [...] MD Ot I25.10 ATHSCL HEART DISEASE OF [place] CORONARY 01/20/2017 CHARLES LOPEZ MD, Ot I73.9 PERIPHERAL VASCULAR DISEASE, UNSPECIFIED 01/20/2017 CHARLES LOPEZ MD, Ot J45.909 UNSPECIFIED ASTHMA, UNCOMPLICATED 01/20/2017 CHARLES LOPEZ MD Ot K21.9 GASTRO-ESOPHAGEAL REFLUX DISEASE WITHOUT 01/20/2017 CHARLES LOPEZ MD, Ot M19.90 UNSPECIFIED OSTEOARTHRITIS, UNSPECIFIED 01/20/2017 CHARLES LOPEZ MD Ot N39.0 URINARY TRACT INFECTION, SITE NOT SPECIF 01/20/2017 CHARLES LOPEZ MD Ot R00.2 PALPITATIONS 01/20/2017 CHARLES LOEPZ MD, Ot R42 DIZZINESS AND GIDDINESS 01/20/2017 CHARLES LOPEZ MD, Ot R51 HEADACHE 01/20/2017 CHARLES LOPEZ MD, Ot Z79.01 BARREL WATERER (CURRENT) USE OF ANTICOAGULANT 01/20/2017 CHARLES LOPEZ MD Ot Z80.0 FAMILY HISTORY OF MALIGNANT NEOPLASM OF 01/20/2017 CHARLES LOPEZ MD Ot Z82.49 FAMILY HX OF ISCHEM HEART DIS AND OTH DI 01/20/2017 CHARLES LOPEZ MD Ot Z86.718 PERSONAL HISTORY [...] OTHER DISEASES OF UR 01/20/2017 CHARLES LOPEZ MD Ot Z90.49 ACQUIRED ABSENCE OF OTHER SPECIFIED PART 01/20/2017 CHARLES LOPEZ MD, Ot Z90.710 ACQUIRED ABSENCE OF BOTH CERVIX AND UTER 01/20/2017 CHARLES LOPEZ MD Ot Z90.89 ACQUIRED ABSENCE [...] I10 ESSENTIAL (PRIMARY) HYPERTENSION 01/22/2017 CHARLES LOPEZ MD Ot I25.10 ATHSCL HEART DISEASE OF [place] CORONARY 01/22/2017 CHARLES LOPEZ MD, Ot I73.9 PERIPHERAL VASCULAR DISEASE, UNSPECIFIED 01/22/2017 CHARLES LOPEZ MD, Ot J45.909 UNSPECIFIED ASTHMA, UNCOMPLICATED 01/22/2017 CHARLES LOPEZ MD Ot K21.9 GASTRO-ESOPHAGEAL REFLUX DISEASE WITHOUT 01/22/2017 CHARLES LOPEZ MD, Ot M19.90 UNSPECIFIED OSTEOARTHRITIS, UNSPECIFIED 01/22/2017 CHARLES LOPEZ MD, Ot N39.0 URINARY TRACT INFECTION, SITE NOT SPECIF 01/22/2017 CHARLES LOPEZ MD, Ot R00.2 PALPITATIONS 01/22/2017 CHARLES LOPEZ MD, Ot R42 DIZZINESS AND GIDDINESS 01/22/2017 CHARLES LOPEZ MD Ot R51 HEADACHE 01/22/2017 CHARLES LOPEZ MD, Ot Z79.01 [facility] (CURRENT) USE OF ANTICOAGULANT 01/22/2017 CHARLES LOPEZ MD, Ot Z80.0 FAMILY HISTORY OF MALIGNANT NEOPLASM OF 01/22/2017 CHARLES LOPEZ MD, Ot Z82.49 FAMILY HX OF ISCHEM HEART DIS AND OTH DI 01/22/2017 CHARLES LOPEZ MD, Ot Z86.718 PERSONAL HISTORY OF OTHER VENOUS THROMBO 01/22/2017 CHARLES LOPEZ MD, Ot Z86.79 PERSONAL HISTORY OF OTHER DISEASES [...] BOTH CERVIX AND UTER 01/22/2017 CHARLES LOPEZ MD, Ot Z90.89 ACQUIRED ABSENCE OF OTHER ORGANS 01/22/2017 CHARLES LOPEZ MD, Ot Z97.5 PRESENCE OF (INTRAUTERINE) CONTRACEPTIVE 07/13/2017 PAYAL VIGIL APRN Ot J98.11 ATELECTASIS 07/13/2017 PAYAL VIGIL APRN Ot Z87.442 PERSONAL HISTORY OF URINARY CALCULI 07/13/2017 PAYAL VIGIL DOPSTER Ot J98.11 ATELECTASIS 07/13/2017 PAYAL VIGIL APRN Ot Z87.442 PERSONAL HISTORY OF URINARY CALCULI 07/31/2017 REAGAN MCNEILL MD Ot Z51. 81 ENCOUNTER FOR THERAPEUTIC DRUG LEVEL MON 07/31/2017 REAGAN MCNEILL MD, Ot Z79. 01 BARREL WATERER (CURRENT) USE OF ANTICOAGULANT 07/31/2017 REAGAN MCNEILL MD, Ot Z86.711 PERSONAL HISTORY OF PULMONARY EMBOLISM 07/31/2017 PAYAL VIGIL APRN Ot J98.11 ATELECTASIS 07/31/2017 PAYAL VIGIL APRN Ot Z87.442 PERSONAL HISTORY OF URINARY CALCULI 08/06/2017 MICHAEL WAGNER Ot I10 ESSENTIAL (PRIMARY) HYPERTENSION 08/06/2017 MICHAEL WAGNER Ot I25.10 ATHSCL HEART DISEASE OF [place] CORONARY 08/06/2017 MICHAEL WAGNER Ot R06.09 OTHER FORMS OF DYSPNEA 08/06/2017 MICHAEL WAGNER Ot R07.89 OTHER CHEST PAIN 08/07/2017 REAGAN MCNEILL MD Ot Z51. 81 ENCOUNTER FOR THERAPEUTIC DRUG LEVEL MON 08/07/2017 REAGAN MCNEILL MD Ot Z79. 01 BARREL WATERER (CURRENT) USE OF ANTICOAGULANT 08/07/2017 REAGAN MCNEILL MD Ot Z86.711 PERSONAL HISTORY OF PULMONARY EMBOLISM 08/07/2017 PAYAL VIGIL APRN Ot J98.11 ATELECTASIS 08/07/2017 PAYAL VIGIL APRN Ot Z87.442 PERSONAL HISTORY OF URINARY CALCULI 08/19/2017 Ot 723.1 CERV ICALGIA 08/19/2017 Ot V45.4 ARTH RODESIS STATUS 08/19/2017 Ot 723.0 CERV ICAL SPINAL STENOSIS 08/19/2017 Ot V64.3 NO P ROGE FOR REASONS NEC 08/19/2017 Ot 723.1 CERV ICALGIA 08/19/2017 Ot 780.4 DIZZ INESS AND GIDDINESS 08/19/2017 Ot 368.9 VISU AL DISTURBANCE NOS 08/19/2017 Ot 723.1 CERV ICALGIA 08/19/2017 Ot 780.4 DIZZ INESS AND GIDDINESS 08/19/2017 Ot V81.5 SCRE EN FOR NEPHROPATHY 08/19/2017 CHARLES FREED Ot 611.71 MASTODYNIA 08/19/2017 CHARLES FREED Ot 610 .3 FIBROSCLEROSIS OF BREAST 08/19/2017 ACE BAJWA MD Ot V58.6 1 ANTICOAGULANTS,LT,CURRENT USE 08/19/2017 ACE BAJWA MD Ot V58.8 3 ENCOUNTER FOR THERAPEUTIC DRUG MONITORIN 08/19/2017 CHARLES FREED Ot 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 08/19/2017 CHARLES FREED Ot 424 .0 MITRAL VALVE DISORDER 08/19/2017 CHARLES FREED Ot [...] WAGNER Ot 786.50 CHEST PAIN NOS 08/19/2017 CHASTITYCHAS JOHNSON DO Ot 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 08/19/2017 CHAS RODARTE DO Ot 625.9 FEM GENITAL SYMPTOMS NOS 08/19/2017 CHASTITYCHAS JOHNSON DO Ot 626.8 MENSTRUAL DISORDER NEC 08/19/2017 CAYDEN CHAS MOYA Ot 627.1 POSTMENOPAUSAL BLEEDING 08/19/2017 CHASTITYCHAS JOHNSON DO Ot V72.84 EXAM PRE-OPERATIVE NOS 08/19/2017 CHAS RODARTE DO Ot V74.8 SCREEN-BACTERIAL DIS NEC 08/19/2017 CHAS RODARTE DO Ot 789.03 ABDOMINAL PAIN, RIGHT LOWER QUADRANT 08/19/2017 CHARLES FREED Ot 729 .5 PAIN IN LIMB 08/19/2017 CATERINA SHAH DO Ot 278. 1 LOCALIZED ADIPOSITY 08/19/2017 CATERINA SHAH DO Ot 493. 90 ASTHMA, UNSPECIFIED 08/19/2017 CATERINA SHAH DO Ot 786. 09 RESPIRATORY ABNORM NEC 08/19/2017 BALDEV LITTLEJOHN DO Ot 569. 3 RECTAL ANAL HEMORRHAGE 08/19/2017 BALDEV LITTLEJOHN DO Ot V72. 84 EXAM PRE-OPERATIVE NOS 08/19/2017 CHAS RODARTE DO Ot 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 08/19/2017 CHAS RODARTE DO Ot 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 ENDOMETRIAL HYPERPLASIA WITHOUT 08/19/2017 CHAS RODARTE DO Ot V25.42 IUD SURVEILLANCE 08/19/2017 CHAS RODARTE DO Ot R10.2 PELVIC AND PERINEAL PAIN 08/19/2017 BALDEV LITTLEJOHN DO Ot R10. 2 PELVIC AND PERINEAL PAIN 08/19/2017 BALDEV LITTLEJOHN DO Ot R10. 10 UPPER ABDOMINAL PAIN, UNSPECIFIED 08/19/2017 BALDEV LITTLEJOHN DO Ot Z01.818 ENCOUNTER FOR OTHER PREPROCEDURAL EXAMIN 08/19/2017 CHAS RODARTE DO Ot D25.9 LEIOMYOMA OF UTERUS, UNSPECIFIED 08/19/2017 CHAS RODARTE DO S Ot Z01.812 ENCOUNTER FOR PREPROCEDURAL LABORATORY E 08/19/2017 CHAS RODARTE DO S Ot Z11.2 ENCOUNTER FOR SCREENING FOR [...] PAIN IN THORACIC SPINE 08/19/2017 KAVYA PATRICK APRN Ot E66.01 MORBID (SEVERE) OBESITY DUE TO EXCESS CA 08/19/2017 KAVYA PATRICK APRN Ot R10.84 GENERALIZED ABDOMINAL PAIN 08/19/2017 KAVYA PATRICK APRN Ot Z68.43 BODY MASS INDEX (BMI) 50-59.9 , ADULT 08/19/2017 REAGAN MCNEILL MD, Ot Z51. 81 ENCOUNTER FOR THERAPEUTIC DRUG LEVEL MON 08/19/2017 REAGAN MCNEILL MD, Ot Z79. 01 BARREL WATERER (CURRENT) USE OF ANTICOAGULANT 08/19/2017 REAGAN MCNEILL MD, Ot Z86.711 PERSONAL HISTORY OF PULMONARY EMBOLISM 08/19/2017 PAYAL VIGIL APRN Ot M54.2 CERVICALGIA 08/19/2017 PAYAL VIGIL APRN Ot Z53.29 PROC/TRTMT NOT CRD OUT BEC PT DECISION F 08/19/2017 REAGAN MCNEILL MD, Ot Z51. 81 ENCOUNTER FOR THERAPEUTIC DRUG LEVEL MON 08/19/2017 REAGAN MCNEILL MD, Ot Z79. 01 BARREL WATERER (CURRENT) USE OF ANTICOAGULANT 08/19/2017 REAGAN MCNEILL MD, Ot Z86.711 PERSONAL HISTORY OF PULMONARY EMBOLISM 08/19/2017 PAYAL VIGIL APRN Ot J98.11 ATELECTASIS 08/19/2017 PAYAL VIGIL APRN Ot Z87.442 PERSONAL HISTORY OF URINARY CALCULI 08/19/2017 MICHAEL WAGNER Ot I10 ESSENTIAL (PRIMARY) HYPERTENSION 08/19/2017 MICHAEL WAGNER Ot I25.10 ATHSCL HEART DISEASE OF [place] CORONARY 08/19/2017 MICHAEL WAGNER Ot R06.09 OTHER FORMS OF DYSPNEA 08/19/2017 MICHAEL WAGNER Ot R07.89 OTHER CHEST PAIN 08/19/2017 Ot 723.1 CERV ICALGIA 08/19/2017 Ot V45.4 ARTH RODESIS STATUS 08/19/2017 Ot 723.0 CERV ICAL SPINAL STENOSIS 08/19/2017 Ot V64.3 NO P ROGE FOR REASONS NEC 08/19/2017 Ot 723.1 CERV ICALGIA 08/19/2017 Ot 780.4 DIZZ INESS AND GIDDINESS 08/19/2017 Ot 368.9 VISU AL DISTURBANCE NOS 08/19/2017 Ot 723.1 CERV ICALGIA 08/19/2017 Ot 780.4 DIZZ INESS AND GIDDINESS 08/19/2017 Ot V81.5 SCRE EN FOR NEPHROPATHY 08/19/2017 CHARLES FREED Ot 611.71 MASTODYNIA 08/19/2017 CHARLES FREED Ot 610 .3 FIBROSCLEROSIS OF BREAST 08/19/2017 GARETT NAM, ACE Z Ot V58.6 1 ANTICOAGULANTS,LT,CURRENT USE 08/19/2017 GARETT NAM, ACE Z Ot V58.8 3 ENCOUNTER FOR THERAPEUTIC DRUG MONITORIN 08/19/2017 CHARLES FREED Ot 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 08/19/2017 CHARLES FREED Ot 424 .0 MITRAL VALVE DISORDER 08/19/2017 CHARLES FREED Ot [...] WAGNER Ot 786.50 CHEST PAIN NOS 08/19/2017 CAYDEN MOYA CHAS Amanda Ot 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 08/19/2017 CAYDEN MOYA CHAS Amanda Ot 625.9 FEM GENITAL SYMPTOMS NOS 08/19/2017 CHAS RODARTE DO Ot 626.8 MENSTRUAL DISORDER NEC 08/19/2017 CAYDEN MOYACHAS Ot 627.1 POSTMENOPAUSAL BLEEDING 08/19/2017 CAYDEN MOYA CHAS Amanda Ot V72.84 EXAM PRE-OPERATIVE NOS 08/19/2017 CAYDEN MOYA CHAS Amanda Ot V74.8 SCREEN-BACTERIAL DIS NEC 08/19/2017 CAYDEN MOYA CHAS Amanda Ot 789.03 ABDOMINAL PAIN, RIGHT LOWER QUADRANT 08/19/2017 CHARLES FREED Ot 729 .5 PAIN IN LIMB 08/19/2017 CATERINA SHAH DO Ot 278. 1 LOCALIZED ADIPOSITY 08/19/2017 CATERINA SHAH DO Ot 493. 90 ASTHMA, UNSPECIFIED 08/19/2017 CATERINA SHAH DO Ot 786. 09 RESPIRATORY ABNORM NEC 08/19/2017 BALDEV LITTLEJOHN DO Ot 569. 3 RECTAL ANAL HEMORRHAGE 08/19/2017 BALDEV LITTLEJOHN DO Ot V72. 84 EXAM PRE-OPERATIVE NOS 08/19/2017 CAYDEN CHAS MOYA Ot 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 08/19/2017 CAYDEN CHAS MOYA Ot 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 ENDOMETRIAL HYPERPLASIA WITHOUT 08/19/2017 CHAS RODARTE DO Ot V25.42 IUD SURVEILLANCE 08/19/2017 CHAS RODARTE DO Ot R10.2 PELVIC AND PERINEAL PAIN 08/19/2017 BALDEV LITTLEJOHN DO Ot R10. 2 PELVIC AND PERINEAL PAIN 08/19/2017 BALDEV LITTLEJOHN DO Ot R10. 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 81 ENCOUNTER FOR THERAPEUTIC DRUG LEVEL MON 08/19/2017 REAGAN MCNEILL MD, Ot Z79. 01 BARREL WATERER (CURRENT) USE OF ANTICOAGULANT 08/19/2017 REAGAN MCNEILL MD, Ot Z86.711 PERSONAL HISTORY OF PULMONARY EMBOLISM 08/19/2017 PAYAL VIGIL APRN Ot M54.2 CERVICALGIA 08/19/2017 PAYAL VIGIL APRN Ot Z53.29 PROC/TRTMT NOT CRD OUT BEC PT DECISION F 08/19/2017 REAGAN MCNEILL MD, Ot Z51. 81 ENCOUNTER FOR THERAPEUTIC DRUG LEVEL MON 08/19/2017 REAGAN MCNEILL MD, Ot Z79. 01 BARREL WATERER (CURRENT) USE OF ANTICOAGULANT 08/19/2017 REAGAN MCNEILL MD, Ot Z86.711 PERSONAL HISTORY OF PULMONARY EMBOLISM 08/19/2017 PAYAL VIGIL APRN Ot J98.11 ATELECTASIS 08/19/2017 PAYAL VIGIL APRN Ot Z87.442 PERSONAL HISTORY OF URINARY CALCULI 08/19/2017 MICHAEL WAGNER Ot I10 ESSENTIAL (PRIMARY) HYPERTENSION 08/19/2017 MICHAEL WAGNER Ot I25.10 ATHSCL HEART DISEASE OF [place] CORONARY 08/19/2017 MICHAEL WAGNER Ot R06.09 OTHER FORMS OF DYSPNEA 08/19/2017 MICHAEL WAGNER Ot R07.89 OTHER CHEST PAIN 08/20/2017 REAGAN MCNEILL MD Ot E03. 9 HYPOTHYROIDISM, UNSPECIFIED 08/20/2017 REAGAN MCNEILL MD Ot E66. 9 OBESITY, UNSPECIFIED 08/20/2017 REAGAN MCNEILL MD Ot E78. 5 HYPERLIPIDEMIA, UNSPECIFIED 08/20/2017 REAGAN MCNEILL MD Ot I10 ESSENTIAL (PRIMARY) HYPERTENSION 08/20/2017 REAGAN MCNEILL MD Ot I25.110 ATHSCL HEART DISEASE OF [place] COR ART W 08/20/2017 REAGAN MCNEILL MD Ot I77. 1 STRICTURE OF ARTERY 08/20/2017 REAGAN MCNEILL MD, Ot J45.909 UNSPECIFIED ASTHMA, UNCOMPLICATED 08/20/2017 REAGAN MCNEILL MD Ot R82. 90 UNSPECIFIED ABNORMAL FINDINGS IN URINE 08/20/2017 REAGAN MCNEILL MD Ot Z68. 43 BODY MASS INDEX (BMI) 50-59.9 , ADULT 08/20/2017 REAGAN MCNEILL MD Ot Z79. 01 BARREL WATERER (CURRENT) USE OF ANTICOAGULANT 08/20/2017 REAGAN MCNEILL MD Ot Z86.711 PERSONAL HISTORY OF PULMONARY EMBOLISM 08/20/2017 REAGAN MCNEILL MD, Ot Z86.718 PERSONAL HISTORY OF OTHER VENOUS THROMBO 08/20/2017 Ot 723.1 CERV ICALGIA 08/20/2017 Ot V45.4 ARTH RODESIS STATUS 08/20/2017 Ot 723.0 CERV ICAL SPINAL STENOSIS 08/20/2017 Ot V64.3 NO P ROGE FOR REASONS NEC 08/20/2017 Ot 723.1 CERV ICALGIA 08/20/2017 Ot 780.4 DIZZ INESS AND GIDDINESS 08/20/2017 Ot 368.9 VISU AL DISTURBANCE NOS 08/20/2017 Ot 723.1 CERV ICALGIA 08/20/2017 Ot 780.4 DIZZ INESS AND GIDDINESS 08/20/2017 Ot V81.5 SCRE EN FOR NEPHROPATHY 08/20/2017 CHARLES FREED Ot 611.71 MASTODYNIA 08/20/2017 CHARLES FREED Ot 610 .3 FIBROSCLEROSIS OF BREAST 08/20/2017 GARETT NAM, ACE Z Ot V58.6 1 ANTICOAGULANTS,LT,CURRENT USE 08/20/2017 JOSE EDUARDO BAJWA MDIQ Z Ot V58.8 3 ENCOUNTER FOR THERAPEUTIC DRUG MONITORIN 08/20/2017 CHARLES FREED Ot 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 08/20/2017 CHARLES FREED Ot 424 .0 MITRAL VALVE DISORDER 08/20/2017 CHARLES FREED Ot [...] RIGHT LOWER QUADRANT 08/20/2017 CHARLES FREED Ot 729 .5 PAIN IN LIMB 08/20/2017 CATERINA SHAH DO Ot 278. 1 LOCALIZED ADIPOSITY 08/20/2017 CATERINA SHAH DO Ot 493. 90 ASTHMA, UNSPECIFIED 08/20/2017 CATERINA SHAH DO Ot 786. 09 RESPIRATORY ABNORM NEC 08/20/2017 BALDEV LITTLEJOHN DO Ot 569. 3 RECTAL ANAL HEMORRHAGE 08/20/2017 LITTLEJOHNRICKY ARMAS DOTT D Ot V72. 84 EXAM PRE-OPERATIVE NOS 08/20/2017 CAYDEN MOYA CHAS Patel Ot 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 08/20/2017 CAYDEN MOYA CHAS S Ot 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 ENDOMETRIAL HYPERPLASIA WITHOUT 08/20/2017 CAYDEN MOYA CHAS Patel Ot V25.42 IUD SURVEILLANCE 08/20/2017 CAYDEN MOYA CHAS Patel Ot R10.2 PELVIC AND PERINEAL PAIN 08/20/2017 LITTLEJOHNPAWEL MOYA BALDEV Abhay Ot R10. 2 PELVIC AND PERINEAL PAIN 08/20/2017 LITTLEJOHNBALDEV ARMAS DO D Ot R10. 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 81 ENCOUNTER FOR THERAPEUTIC DRUG LEVEL MON 08/20/2017 REAGAN MCNEILL MD Ot Z79. 01 BARREL WATERER (CURRENT) USE OF ANTICOAGULANT 08/20/2017 REAGAN MCNEILL MD, Ot Z86.711 PERSONAL HISTORY OF PULMONARY EMBOLISM 08/20/2017 PAYAL VIGIL APRN Ot M54.2 CERVICALGIA 08/20/2017 PAYAL VIGIL APRN Ot Z53.29 PROC/TRTMT NOT CRD OUT BEC PT DECISION F 08/20/2017 REAGAN MCNEILL MD, Ot Z51. 81 ENCOUNTER FOR THERAPEUTIC DRUG LEVEL MON 08/20/2017 REAGAN MCNEILL MD, Ot Z79. 01 BARREL WATERER (CURRENT) USE OF ANTICOAGULANT 08/20/2017 REAGAN MCNEILL MD, Ot Z86.711 PERSONAL HISTORY OF PULMONARY EMBOLISM 08/20/2017 PAYAL VIGIL APRN, Ot J98.11 ATELECTASIS 08/20/2017 PAYAL VIGIL APRN Ot Z87.442 PERSONAL HISTORY OF URINARY CALCULI 08/20/2017 MICHAEL WAGNER Ot I10 ESSENTIAL (PRIMARY) HYPERTENSION 08/20/2017 MICHAEL WAGNER Ot I25.10 ATHSCL HEART DISEASE OF [place] CORONARY 08/20/2017 MICHAEL WAGNER Ot R06.09 OTHER FORMS OF DYSPNEA 08/20/2017 MICHAEL WAGNER Ot R07.89 OTHER CHEST PAIN 08/20/2017 SHALOM RAMÍREZ APRN Ot E03 .9 HYPOTHYROIDISM, UNSPECIFIED 08/20/2017 SHALOM RAMÍREZ APRN Ot E66.01 MORBID (SEVERE) OBESITY DUE TO EXCESS CA 08/20/2017 SHALOM RAMÍREZ APRN Ot E78.00 PURE HYPERCHOLESTEROLEMIA, UNSPECIFIED 08/20/2017 SHALOM RAMÍREZ APRN Ot G47.30 SLEEP APNEA, UNSPECIFIED 08/20/2017 SHALOM RAMÍREZ APRN Ot I10 ESSENTIAL (PRIMARY) HYPERTENSION 08/20/2017 SHALOM RAMÍREZ APRN Ot 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 08/20/2017 SHALOM RAMÍREZ APRN Ot I25.10 ATHSCL HEART DISEASE OF [place] CORONARY 08/20/2017 SHALOM RAMÍREZ APRN Ot I73 .9 PERIPHERAL VASCULAR DISEASE, UNSPECIFIED 08/20/2017 SHALOM RAMÍREZ APRN Ot J44 .9 CHRONIC OBSTRUCTIVE PULMONARY DISEASE, U 08/20/2017 SHALOM RAMÍREZ APRN Ot K21 .9 GASTRO-ESOPHAGEAL REFLUX DISEASE WITHOUT 08/20/2017 SHALOM RAMÍREZ APRN Ot R07 .2 PRECORDIAL PAIN 08/20/2017 SHALOM RAMÍREZ APRN Ot Z68.43 BODY MASS INDEX (BMI) 50-59.9 , ADULT 08/20/2017 SHALOM RAMÍREZ APRN Ot Z79.01 BARREL WATERER (CURRENT) USE OF ANTICOAGULANT 08/20/2017 SHALOM RAMÍREZ APRN Ot Z79.02 [facility] (CURRENT) USE OF ANTITHROMBOTI 08/20/2017 SHALOM RAMÍREZ APRN Ot Z79.51 [facility] (CURRENT) USE OF INHALED STERO 08/20/2017 SHALOM RAMÍREZ APRN Ot Z79.82 [facility] (CURRENT) USE OF ASPIRIN 08/20/2017 SHALOM RAMÍREZ APRN Ot Z80 .0 FAMILY HISTORY OF MALIGNANT NEOPLASM OF 08/20/2017 [...] OF UR 08/20/2017 SHALOM RAMÍREZ APRN Ot Z88 .0 ALLERGY STATUS TO PENICILLIN 08/20/2017 SHALOM RAMÍREZ APRN Ot Z88 .8 ALLERGY STATUS TO OT DRUG/MEDS/BIOL SUB 08/20/2017 SHALOM RAMÍREZ APRN Ot Z90.49 ACQUIRED ABSENCE OF OTHER SPECIFIED PART 08/20/2017 SHALOM RAMÍREZ APRN Ot Z90.710 ACQUIRED ABSENCE OF BOTH CERVIX AND UTER 08/20/2017 SHALOM RAMÍREZ APRN Ot Z90.89 ACQUIRED ABSENCE OF OTHER ORGANS 08/20/2017 SHALOM RAMÍREZ APRN Ot Z91.048 OTHER NONMEDICINAL SUBSTANCE ALLERGY STA 08/20/2017 SHALOM RAMÍREZ APRN Ot Z97 .5 PRESENCE OF (INTRAUTERINE) CONTRACEPTIVE 08/20/2017 Ot 723.1 CERV ICALGIA 08/20/2017 Ot V45.4 ARTH RODESIS STATUS 08/20/2017 Ot 723.0 CERV ICAL SPINAL STENOSIS 08/20/2017 Ot V64.3 NO P ROGE FOR REASONS NEC 08/20/2017 Ot 723.1 CERV ICALGIA 08/20/2017 Ot 780.4 DIZZ INESS AND GIDDINESS 08/20/2017 Ot 368.9 VISU AL DISTURBANCE NOS 08/20/2017 Ot 723.1 CERV ICALGIA 08/20/2017 Ot 780.4 DIZZ INESS AND GIDDINESS 08/20/2017 Ot V81.5 SCRE EN FOR NEPHROPATHY 08/20/2017 CHARLES FREED Ot 611.71 MASTODYNIA 08/20/2017 CHARLES FREED Ot 610 .3 FIBROSCLEROSIS OF BREAST 08/20/2017 GARETT NAM ACE Z Ot V58.6 1 ANTICOAGULANTS,LT,CURRENT USE 08/20/2017 GARETT NAM ACE Z Ot V58.8 3 ENCOUNTER FOR THERAPEUTIC DRUG MONITORIN 08/20/2017 CHARLES FREED Ot 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 08/20/2017 CHARLES FREED Ot 424 .0 MITRAL VALVE DISORDER 08/20/2017 CHARLES FREED Ot [...] CHEST PAIN NOS 08/20/2017 CHAS RODARTE DO S Ot 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 08/20/2017 CHAS RODARTE DO Ot 625.9 FEM GENITAL SYMPTOMS NOS 08/20/2017 CAYDEN MOYA CHAS Patel Ot 626.8 MENSTRUAL DISORDER NEC 08/20/2017 CAYDEN MOYACHAS Ot 627.1 POSTMENOPAUSAL BLEEDING 08/20/2017 CAYDEN CHAS MOYA Ot V72.84 EXAM PRE-OPERATIVE NOS 08/20/2017 CHAS RODARTE DO Amanda Ot V74.8 SCREEN-BACTERIAL DIS NEC 08/20/2017 CAYDEN MOYA CHAS Amanda Ot 789.03 ABDOMINAL PAIN, RIGHT LOWER QUADRANT 08/20/2017 CHARLES FREED Ot 729 .5 PAIN IN LIMB 08/20/2017 CATERINA SHAH DO Ot 278. 1 LOCALIZED ADIPOSITY 08/20/2017 CATERINA SHAH DO Ot 493. 90 ASTHMA, UNSPECIFIED 08/20/2017 CATERINA SHAH DO Ot 786. 09 RESPIRATORY ABNORM NEC 08/20/2017 BALDEV LITTLEJOHN DO Ot 569. 3 RECTAL ANAL HEMORRHAGE 08/20/2017 BALDEV LITTLEJOHN DO Ot V72. 84 EXAM PRE-OPERATIVE NOS 08/20/2017 CAYDEN CHAS MOYA Ot 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 08/20/2017 CAYDEN CHAS MOYA Ot 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 ENDOMETRIAL HYPERPLASIA WITHOUT 08/20/2017 CAYDEN CHAS MOYA Ot V25.42 IUD SURVEILLANCE 08/20/2017 CHAS RODARTE DO Ot R10.2 PELVIC AND PERINEAL PAIN 08/20/2017 BALDEV LITTLEJOHN DO Ot R10. 2 PELVIC AND PERINEAL PAIN 08/20/2017 BALDEV LITTLEJOHN DO Ot R10. 10 UPPER ABDOMINAL PAIN, UNSPECIFIED 08/20/2017 BALDEV LITTLEJOHN [...] E03.9 HYPOTHYROIDISM, UNSPECIFIED 08/20/2017 TONY MOYA MIGDALIA Abhay Ot Z86.010 PERSONAL HISTORY OF COLONIC POLYPS 08/20/2017 PAYAL VIGIL APRN Ot M54.6 PAIN IN THORACIC SPINE 08/20/2017 KAVYA PATRICK APRN Ot E66.01 MORBID (SEVERE) OBESITY DUE TO EXCESS CA 08/20/2017 KAVYA PATRICK APRN Ot R10.84 GENERALIZED ABDOMINAL PAIN 08/20/2017 KAVYA PATRICK APRN Ot Z68.43 BODY MASS INDEX (BMI) 50-59.9 , ADULT 08/20/2017 REAGAN MCNEILL MD, Ot Z51. 81 ENCOUNTER FOR THERAPEUTIC DRUG LEVEL MON 08/20/2017 REAGAN MCNEILL MD, Ot Z79. 01 BARREL WATERER (CURRENT) USE OF ANTICOAGULANT 08/20/2017 REAGAN MCNEILL MD, Ot Z86.711 PERSONAL HISTORY OF PULMONARY EMBOLISM 08/20/2017 PAYAL VIGIL APRN Ot M54.2 CERVICALGIA 08/20/2017 PAYAL VIGIL APRN Ot Z53.29 PROC/TRTMT NOT CRD OUT BEC PT DECISION F 08/20/2017 REAGAN MCNEILL MD, Ot Z51. 81 ENCOUNTER FOR THERAPEUTIC DRUG LEVEL MON 08/20/2017 REAGAN MCNEILL MD, Ot Z79. 01 BARREL WATERER (CURRENT) USE OF ANTICOAGULANT 08/20/2017 REAGAN MCNEILL MD, Ot Z86.711 PERSONAL HISTORY OF PULMONARY EMBOLISM 08/20/2017 PAYAL VIGIL APRN Ot J98.11 ATELECTASIS 08/20/2017 PAYAL VIGIL APRN Ot Z87.442 PERSONAL HISTORY OF URINARY CALCULI 08/20/2017 MICHAEL WAGNER Ot I10 ESSENTIAL (PRIMARY) HYPERTENSION 08/20/2017 MICHAEL WAGNER Ot I25.10 ATHSCL HEART DISEASE OF [place] CORONARY 08/20/2017 MICHAEL WAGNER Ot R06.09 OTHER FORMS OF DYSPNEA 08/20/2017 MICHAEL WAGNER Ot R07.89 OTHER CHEST PAIN 08/20/2017 Ot 723.1 CERV ICALGIA 08/20/2017 Ot V45.4 ARTH RODESIS STATUS 08/20/2017 Ot 723.0 CERV ICAL SPINAL STENOSIS 08/20/2017 Ot V64.3 NO P ROGE FOR REASONS NEC 08/20/2017 Ot 723.1 CERV ICALGIA 08/20/2017 Ot 780.4 DIZZ INESS AND GIDDINESS 08/20/2017 Ot 368.9 VISU AL DISTURBANCE NOS 08/20/2017 Ot 723.1 CERV ICALGIA 08/20/2017 Ot 780.4 DIZZ INESS AND GIDDINESS 08/20/2017 Ot V81.5 SCRE EN FOR NEPHROPATHY 08/20/2017 CHARLES FREED Ot 611.71 MASTODYNIA 08/20/2017 CHARLES FREED Ot 610 .3 FIBROSCLEROSIS OF BREAST 08/20/2017 GARETT NAM ACE Z Ot V58.6 1 ANTICOAGULANTS,LT,CURRENT USE 08/20/2017 GARETT NAM ACE Z Ot V58.8 3 ENCOUNTER FOR THERAPEUTIC DRUG MONITORIN 08/20/2017 CHARLES FREED Ot 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 08/20/2017 CHARLES FREED Ot 424 .0 MITRAL VALVE DISORDER 08/20/2017 CHARLES FREED Ot [...] RIGHT LOWER QUADRANT 08/20/2017 CHARLES FREED Ot 729 .5 PAIN IN LIMB 08/20/2017 CATERINA SHAH DO Ot 278. 1 LOCALIZED ADIPOSITY 08/20/2017 CATERINA SHAH DO Ot 493. 90 ASTHMA, UNSPECIFIED 08/20/2017 CATERINA SHAH DO Ot 786. 09 RESPIRATORY ABNORM NEC 08/20/2017 BALDEV LITTLEJOHN DO Ot 569. 3 RECTAL ANAL HEMORRHAGE 08/20/2017 BALDEV LITTLEJOHN DO Ot V72. 84 EXAM PRE-OPERATIVE NOS 08/20/2017 CHAS RODARTE DO Ot 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 08/20/2017 CHAS RODARTE DO Ot 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 ENDOMETRIAL HYPERPLASIA WITHOUT 08/20/2017 CAYDEN MOYA CHAS Patel Ot V25.42 IUD SURVEILLANCE 08/20/2017 CAYDEN MOYA CHAS Patel Ot R10.2 PELVIC AND PERINEAL PAIN 08/20/2017 BALDEV LITTLEJOHN DO Ot R10. 2 PELVIC AND PERINEAL PAIN 08/20/2017 BALDEV LITTLEJOHN DO Ot R10. 10 UPPER ABDOMINAL PAIN, UNSPECIFIED 08/20/2017 BALDEV LITTLEJOHN [...] HISTORY OF COLONIC POLYPS 08/20/2017 PAYAL VIGIL DOPSTER Ot M54.6 PAIN IN THORACIC SPINE 08/20/2017 KAVYA PATRICK DOPSTER Ot E66.01 MORBID (SEVERE) OBESITY DUE TO EXCESS CA 08/20/2017 PATRICKKAVYA COOLEY DOPSTER Ot R10.84 GENERALIZED ABDOMINAL PAIN 08/20/2017 PATRICKKAVYA COOLEY DOPSTER Ot Z68.43 BODY MASS INDEX (BMI) 50-59.9 , ADULT 08/20/2017 REAGAN MCNEILL MD, Ot Z51. 81 ENCOUNTER FOR THERAPEUTIC DRUG LEVEL MON 08/20/2017 REAGAN MCNEILL MD, Ot Z79. 01 BARREL WATERER (CURRENT) USE OF ANTICOAGULANT 08/20/2017 REAGAN MCNEILL MD, Ot Z86.711 PERSONAL HISTORY OF PULMONARY EMBOLISM 08/20/2017 PAYAL VIGIL DOPSTER Ot M54.2 CERVICALGIA 08/20/2017 PAYAL VIGIL APRN Ot Z53.29 PROC/TRTMT NOT CRD OUT BEC PT DECISION F 08/20/2017 REAGAN MCNEILL MD, Ot Z51. 81 ENCOUNTER FOR THERAPEUTIC DRUG LEVEL MON 08/20/2017 REAGAN MCNEILL MD, Ot Z79. 01 BARREL WATERER (CURRENT) USE OF ANTICOAGULANT 08/20/2017 REAGAN MCNEILL MD, Ot Z86.711 PERSONAL HISTORY OF PULMONARY EMBOLISM 08/20/2017 PAYAL VIGIL APRN Ot J98.11 ATELECTASIS 08/20/2017 PAYAL VIGIL DOPSTER Ot Z87.442 PERSONAL HISTORY OF URINARY CALCULI 08/20/2017 MICHAEL WAGNER Ot I10 ESSENTIAL (PRIMARY) HYPERTENSION 08/20/2017 MICHAEL WAGNER Ot I25.10 ATHSCL HEART DISEASE OF [place] CORONARY 08/20/2017 MICHAEL WAGNER Ot R06.09 OTHER FORMS OF DYSPNEA 08/20/2017 MICHAEL WAGNER Ot R07.89 OTHER CHEST PAIN 08/20/2017 REAGAN MCNEILL MD Ot E78. 5 HYPERLIPIDEMIA, UNSPECIFIED 08/20/2017 REAGAN MCNEILL MD Ot I10 ESSENTIAL (PRIMARY) HYPERTENSION 08/20/2017 CHARITO MD, BASHAR J Ot I25.110 ATHSCL HEART DISEASE OF [place] COR ART W 08/20/2017 CHARITO NAM, REAGAN Balderas Ot I77. 1 STRICTURE OF ARTERY 08/21/2017 Ot 723.1 CERV ICALGIA 08/21/2017 Ot V45.4 ARTH RODESIS STATUS 08/21/2017 Ot 723.0 CERV ICAL SPINAL STENOSIS 08/21/2017 Ot V64.3 NO P ROGE FOR REASONS NEC 08/21/2017 Ot 723.1 CERV ICALGIA 08/21/2017 Ot 780.4 DIZZ INESS AND GIDDINESS 08/21/2017 Ot 368.9 VISU AL DISTURBANCE NOS 08/21/2017 Ot 723.1 CERV ICALGIA 08/21/2017 Ot 780.4 DIZZ INESS AND GIDDINESS 08/21/2017 Ot V81.5 SCRE EN FOR NEPHROPATHY 08/21/2017 CHARLES FREED Ot 611.71 MASTODYNIA 08/21/2017 CHARLES FREED Ot 610 .3 FIBROSCLEROSIS OF BREAST 08/21/2017 GARETT NAM ACE Z Ot V58.6 1 ANTICOAGULANTS,LT,CURRENT USE 08/21/2017 GARETT NAM ACE Z Ot V58.8 3 ENCOUNTER FOR THERAPEUTIC DRUG MONITORIN 08/21/2017 CHARLES FREED Ot 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 08/21/2017 CHARLES FREED Ot 424 .0 MITRAL VALVE DISORDER 08/21/2017 CHARLES FREED Ot [...] DO Ot 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 08/21/2017 CAYDEN DO CHAS Amanda Ot 625.9 FEM GENITAL SYMPTOMS NOS 08/21/2017 CAYDEN MOYA CHAS Amanda Ot 626.8 MENSTRUAL DISORDER NEC 08/21/2017 CAYDEN MOYACHAS Ot 627.1 POSTMENOPAUSAL BLEEDING 08/21/2017 CAYDEN MOYA CHAS Amanda Ot V72.84 EXAM PRE-OPERATIVE NOS 08/21/2017 CAYDEN MOYA CHAS Amanda Ot V74.8 SCREEN-BACTERIAL DIS NEC 08/21/2017 CAYDEN DO CHAS Amanda Ot 789.03 ABDOMINAL PAIN, RIGHT LOWER QUADRANT 08/21/2017 CHARLES FREED Ot 729 .5 PAIN IN LIMB 08/21/2017 CATERINA SHAH DO Ot 278. 1 LOCALIZED ADIPOSITY 08/21/2017 CATERINA SHAH DO Ot 493. 90 ASTHMA, UNSPECIFIED 08/21/2017 CATERINA SHAH DO Ot 786. 09 RESPIRATORY ABNORM NEC 08/21/2017 BALDEV LITTLEJOHN DO Ot 569. 3 RECTAL ANAL HEMORRHAGE 08/21/2017 BALDEV LITTLEJOHN DO Ot V72. 84 EXAM PRE-OPERATIVE NOS 08/21/2017 CAYDEN DO CHAS Amanda Ot 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 08/21/2017 CAYDEN DO CHAS Amanda Ot 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 ENDOMETRIAL HYPERPLASIA WITHOUT 08/21/2017 CHASTITYCHAS JOHNSON DO Ot V25.42 IUD SURVEILLANCE 08/21/2017 CAYDEN CHAS MOYA Ot R10.2 PELVIC AND PERINEAL PAIN 08/21/2017 BALDEV LITTLEJOHN DO Ot R10. 2 PELVIC AND PERINEAL PAIN 08/21/2017 BALDEV LITTLEJOHN DO Ot R10. 10 UPPER ABDOMINAL PAIN, UNSPECIFIED 08/21/2017 BALDEV LITTLEJOHN DO Ot Z01.818 ENCOUNTER FOR OTHER PREPROCEDURAL EXAMIN 08/21/2017 CAYDEN CHAS MOYA Ot D25.9 LEIOMYOMA OF UTERUS, UNSPECIFIED 08/21/2017 CHASTITYCHAS JOHNSON DO Ot Z01.812 ENCOUNTER FOR [...] DUE TO EXCESS CA 08/21/2017 KAVYA PATRICK DOPSTER Ot R10.84 GENERALIZED ABDOMINAL PAIN 08/21/2017 KAVYA PATRICK APRN Ot Z68.43 BODY MASS INDEX (BMI) 50-59.9 , ADULT 08/21/2017 REAGAN MCNEILL MD, Ot Z51. 81 ENCOUNTER FOR THERAPEUTIC DRUG LEVEL MON 08/21/2017 REAGAN MCNEILL MD, Ot Z79. 01 MCFP (CURRENT) USE OF ANTICOAGULANT 08/21/2017 REAGAN MCNEILL MD, Ot Z86.711 PERSONAL HISTORY OF PULMONARY EMBOLISM 08/21/2017 PAYAL VIGIL APRN Ot M54.2 CERVICALGIA 08/21/2017 PAYAL VIGIL APRN Ot Z53.29 PROC/TRTMT NOT CRD OUT BEC PT DECISION F 08/21/2017 REAGAN MCNEILL MD, Ot Z51. 81 ENCOUNTER FOR THERAPEUTIC DRUG LEVEL MON 08/21/2017 REAGAN MCNEILL MD, Ot Z79. 01 BARREL WATERER (CURRENT) USE OF ANTICOAGULANT 08/21/2017 REAGAN MCNEILL MD, Ot Z86.711 PERSONAL HISTORY OF PULMONARY EMBOLISM 08/21/2017 PAYAL VIGIL APRN Ot J98.11 ATELECTASIS 08/21/2017 PAYAL VIGIL APRN Ot Z87.442 PERSONAL HISTORY OF URINARY CALCULI 08/21/2017 MICHAEL WAGNER Ot I10 ESSENTIAL (PRIMARY) HYPERTENSION 08/21/2017 MICHAEL WAGNER Ot I25.10 ATHSCL HEART DISEASE OF [place] CORONARY 08/21/2017 MICHAEL WAGNER Ot R06.09 OTHER FORMS OF DYSPNEA 08/21/2017 MICHAEL WAGNER Ot R07.89 OTHER CHEST PAIN 08/21/2017 REAGAN MCNEILL MD Ot E03. 9 HYPOTHYROIDISM, UNSPECIFIED 08/21/2017 REAGAN MCNEILL MD Ot E66. 9 OBESITY, UNSPECIFIED 08/21/2017 REAGAN MCNEILL MD Ot E78. 5 HYPERLIPIDEMIA, UNSPECIFIED 08/21/2017 REAGAN MCNEILL MD Ot I10 ESSENTIAL (PRIMARY) HYPERTENSION 08/21/2017 REAGAN MCNEILL MD Ot I25.110 ATHSCL HEART DISEASE OF [place] COR ART W 08/21/2017 REAGAN MCNEILL MD Ot I77. 1 STRICTURE OF ARTERY 08/21/2017 REAGAN MCNEILL MD, Ot J45.909 UNSPECIFIED ASTHMA, UNCOMPLICATED 08/21/2017 REAGAN MCNEILL MD Ot Z68. 43 BODY MASS INDEX (BMI) 50-59.9 , ADULT 08/21/2017 REAGAN MCNEILL MD Ot Z79. 01 [facility] (CURRENT) USE OF ANTICOAGULANT 08/21/2017 REAGAN MCNEILL MD, Ot Z86.711 PERSONAL HISTORY OF PULMONARY EMBOLISM 08/21/2017 REAGAN MCNEILL MD, Ot Z86.718 PERSONAL HISTORY OF OTHER VENOUS THROMBO 08/24/2017 SHALOM RAMÍREZ APRN Ot E03 .9 HYPOTHYROIDISM, UNSPECIFIED 08/24/2017 SHALOM RAMÍREZ APRN Ot E66.01 MORBID (SEVERE) OBESITY DUE TO EXCESS CA 08/24/2017 SHALOM RAMÍREZ APRN Ot E78.00 PURE HYPERCHOLESTEROLEMIA, UNSPECIFIED 08/24/2017 SHALOM RAMÍREZ APRN Ot G47.30 SLEEP APNEA, UNSPECIFIED 08/24/2017 SHALOM RAMÍREZ APRN Ot I10 ESSENTIAL (PRIMARY) HYPERTENSION 08/24/2017 SHALOM RAMÍREZ APRN Ot 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 08/24/2017 SHALOM RAMÍREZ APRN Ot I25.10 ATHSCL HEART DISEASE OF [place] CORONARY 08/24/2017 SHALOM RAMÍREZ APRN Ot I73 .9 PERIPHERAL VASCULAR DISEASE, UNSPECIFIED 08/24/2017 SHALOM RAMÍREZ APRN Ot J44 .9 CHRONIC OBSTRUCTIVE PULMONARY DISEASE, U 08/24/2017 SHALOM RAMÍREZ APRN Ot K21 .9 GASTRO-ESOPHAGEAL REFLUX DISEASE WITHOUT 08/24/2017 SHALOM RAMÍREZ APRN Ot R07 .2 PRECORDIAL PAIN 08/24/2017 SHALOM RAMÍREZ APRN Ot Z68.43 BODY MASS INDEX (BMI) 50-59.9 , ADULT 08/24/2017 SHALOM RAMÍREZ APRN Ot Z79.01 BARREL WATERER (CURRENT) USE OF ANTICOAGULANT 08/24/2017 SHALOM RAMÍREZ APRN Ot Z79.02 BARREL WATERER (CURRENT) USE OF ANTITHROMBOTI 08/24/2017 SHALOM RAMÍREZ APRN Ot Z79.51 BARREL WATERER (CURRENT) USE OF INHALED STERO 08/24/2017 SHALOM RAMÍREZ APRN Ot Z79.82 BARREL WATERER (CURRENT) USE OF ASPIRIN 08/24/2017 SHALOM RAMÍREZ APRN Ot Z80 .0 FAMILY HISTORY OF MALIGNANT NEOPLASM OF 08/24/2017 [...] OF UR 08/24/2017 SHALOM RAMÍREZ APRN Ot Z88 .0 ALLERGY STATUS TO PENICILLIN 08/24/2017 SHALOM RAMÍREZ APRN Ot Z88 .8 ALLERGY STATUS TO OT DRUG/MEDS/BIOL SUB 08/24/2017 SHALOM RAMÍREZ APRN Ot Z90.49 ACQUIRED ABSENCE OF OTHER SPECIFIED PART 08/24/2017 SHALOM RAMÍREZ APRN Ot Z90.710 ACQUIRED ABSENCE OF BOTH CERVIX AND UTER 08/24/2017 SHALOM RAMÍREZ APRN Ot Z90.89 ACQUIRED ABSENCE OF OTHER ORGANS 08/24/2017 SHALOM RAMÍREZ APRN Ot Z91.048 OTHER NONMEDICINAL SUBSTANCE ALLERGY STA 08/24/2017 SHALOM RAMÍREZ APRN Ot Z97 .5 PRESENCE OF (INTRAUTERINE) CONTRACEPTIVE 08/24/2017 REAGAN MCNEILL MD Ot E03. 9 HYPOTHYROIDISM, UNSPECIFIED 08/24/2017 CHARITO MD, BASHAR J Ot E66. 9 OBESITY, UNSPECIFIED 08/24/2017 REGAAN MCNEILL MD Ot E78. 5 HYPERLIPIDEMIA, UNSPECIFIED 08/24/2017 REAGAN MCNEILL MD Ot I10 ESSENTIAL (PRIMARY) HYPERTENSION 08/24/2017 REAGAN MCNEILL MD Ot I25.110 ATHSCL HEART DISEASE OF [place] COR ART W 08/24/2017 REAGAN MCNEILL MD Ot I77. 1 STRICTURE OF ARTERY 08/24/2017 REAGAN MCNEILL MD Ot J45.909 UNSPECIFIED ASTHMA, UNCOMPLICATED 08/24/2017 REAGAN MCNEILL MD Ot R82. 90 UNSPECIFIED ABNORMAL FINDINGS IN URINE 08/24/2017 REAGAN MCNEILL MD Ot Z68. 43 BODY MASS INDEX (BMI) 50-59.9 , ADULT 08/24/2017 REAGAN MCNEILL MD Ot Z79. 01 [facility] (CURRENT) USE OF ANTICOAGULANT 08/24/2017 REAGAN MCNEILL MD Ot Z86.711 PERSONAL HISTORY OF PULMONARY EMBOLISM 08/24/2017 REAGAN MCNEILL MD Ot Z86.718 PERSONAL HISTORY OF OTHER VENOUS THROMBO 08/26/2017 REAGAN MCNEILL MD Ot E03. 9 HYPOTHYROIDISM, UNSPECIFIED 08/26/2017 REAGAN MCNEILL MD Ot E66. 9 OBESITY, UNSPECIFIED 08/26/2017 REAGAN MCNEILL MD Ot E78. 5 HYPERLIPIDEMIA, UNSPECIFIED 08/26/2017 REAGAN MCNEILL MD Ot I10 ESSENTIAL (PRIMARY) HYPERTENSION 08/26/2017 REAGAN MCNEILL MD Ot I25.110 ATHSCL HEART DISEASE OF [place] COR ART W 08/26/2017 REAGAN MCNEILL MD Ot I77. 1 STRICTURE OF ARTERY 08/26/2017 REAGAN MCNEILL MD Ot J45.909 UNSPECIFIED ASTHMA, UNCOMPLICATED 08/26/2017 REAGAN MCNEILL MD Ot R82. 90 UNSPECIFIED ABNORMAL FINDINGS IN URINE 08/26/2017 REAGAN MCNEILL MD Ot Z68. 43 BODY MASS INDEX (BMI) 50-59.9 , ADULT 08/26/2017 REAGAN MCNEILL MD Ot Z79. 01 [facility] (CURRENT) USE OF ANTICOAGULANT 08/26/2017 REAGAN MCNEILL MD Ot Z86.711 PERSONAL HISTORY OF PULMONARY EMBOLISM 08/26/2017 REAGAN MCNEILL MD Ot Z86.718 PERSONAL HISTORY OF OTHER VENOUS THROMBO 08/28/2017 MICHAEL WAGNER Ot I10 ESSENTIAL (PRIMARY) HYPERTENSION 08/28/2017 MICHAEL WAGNER Ot I25.10 ATHSCL HEART DISEASE OF [place] CORONARY 08/28/2017 MICHAEL WAGNER Ot R06.09 OTHER FORMS OF DYSPNEA 08/28/2017 MICHAEL WAGNER Ot R07.89 OTHER CHEST PAIN 08/31/2017 REAGAN MCNEILL MD Ot E03. 9 HYPOTHYROIDISM, UNSPECIFIED 08/31/2017 REAGAN MCNEILL MD Ot E66. 9 OBESITY, UNSPECIFIED 08/31/2017 REAGAN MCNEILL MD Ot E78. 5 HYPERLIPIDEMIA, UNSPECIFIED 08/31/2017 REAGAN MCNEILL MD, Ot I10 ESSENTIAL (PRIMARY) HYPERTENSION 08/31/2017 REAGAN MCNEILL MD Ot I25.110 ATHSCL HEART DISEASE OF [place] COR ART W 08/31/2017 REAGAN MCNEILL MD Ot I77. 1 STRICTURE OF ARTERY 08/31/2017 REAGAN MCNEILL MD Ot J45.909 UNSPECIFIED ASTHMA, UNCOMPLICATED 08/31/2017 REAGAN MCNEILL MD Ot R82. 90 UNSPECIFIED ABNORMAL FINDINGS IN URINE 08/31/2017 REAGAN MCNEILL MD Ot Z68. 43 BODY MASS INDEX (BMI) 50-59.9 , ADULT 08/31/2017 REAAGN MCNEILL MD Ot Z79. 01 [facility] (CURRENT) USE OF ANTICOAGULANT 08/31/2017 REAGAN MCNEILL MD Ot Z86.711 PERSONAL HISTORY OF PULMONARY EMBOLISM 08/31/2017 REAGAN MCNEILL MD, Ot Z86.718 PERSONAL HISTORY OF OTHER VENOUS THROMBO 09/04/2017 MICHAEL WAGNER Ot I10 ESSENTIAL (PRIMARY) HYPERTENSION 09/04/2017 MICHAEL WAGNER Ot I25.10 ATHSCL HEART DISEASE OF [place] CORONARY 09/04/2017 MICHAEL WAGNER Ot R06.09 OTHER FORMS OF DYSPNEA 09/04/2017 MICHAEL WAGNER Ot R07.89 OTHER CHEST PAIN 09/05/2017 BARN[place]GE DOVIANNEY Ot E03.9 HYPOTHYROIDISM, UNSPECIFIED 09/05/2017 [place] VIANNEY MOYA Ot E66.01 MORBID (SEVERE) OBESITY DUE TO EXCESS CA 09/05/2017 BARN[place]GE DOVIANNEY Ot E78.5 HYPERLIPIDEMIA, UNSPECIFIED 09/05/2017 BARN[place]GE DOVIANNEY E Ot G47.33 OBSTRUCTIVE SLEEP APNEA (ADULT) (PEDIATR 09/05/2017 BARNIDGE DOVIANNEY Ot I10 ESSENTIAL (PRIMARY) HYPERTENSION 09/05/2017 BARNIDGE DOVIANNEY Ot I25.10 ATHSCL HEART DISEASE OF [place] CORONARY 09/05/2017 VIANNEY SMITH DO Ot I73.9 PERIPHERAL VASCULAR DISEASE, UNSPECIFIED 09/05/2017 [place] VIANNEY MOYA Ot J44.9 CHRONIC OBSTRUCTIVE PULMONARY DISEASE, U 09/05/2017 BARNIDGVIANNEY Yusuf DO Ot J45.909 UNSPECIFIED ASTHMA, UNCOMPLICATED 09/05/2017 BARNIDGE DOVIANNEY Ot K21.9 GASTRO-ESOPHAGEAL REFLUX DISEASE WITHOUT 09/05/2017 BARNIAAMIRE VIANNEY MOYA Ot N39.0 URINARY TRACT INFECTION, SITE NOT SPECIF 09/05/2017 PAWELARCHANAVIANNEY POLLACK DO Ot R07.89 OTHER CHEST PAIN 09/05/2017 BARNIDGE DOVIANNEY Ot R60.0 LOCALIZED EDEMA 09/05/2017 BARNIVIANNEY POLLACK DO Ot Z68.43 BODY MASS INDEX (BMI) 50-59.9 , ADULT 09/05/2017 BARN[place]GE DOVIANNEY Ot Z79.01 BARREL WATERER (CURRENT) USE OF ANTICOAGULANT 09/05/2017 VIANNEY SMITH DO Ot Z79.02 [facility] (CURRENT) USE OF ANTITHROMBOTI 09/05/2017 PAWELNIRANJEET DOVIANNEY Ot Z79.82 BARREL WATERER (CURRENT) USE OF ASPIRIN 09/05/2017 VIANNEY SMITH DO Ot Z79.899 OTHER [facility] (CURRENT) DRUG THERAPY 09/05/2017 VIANNEY SMITH DO Ot Z82.49 FAMILY HX OF ISCHEM HEART DIS AND OTH DI 09/05/2017 VIANNEY SMITH DO Ot Z85.038 PERSONAL HISTORY OF MALIGNANT NEOPLASM O 09/05/2017 VIANNEY SMITH DO Ot Z86.711 PERSONAL HISTORY OF PULMONARY EMBOLISM 09/05/2017 VIANNEY SMITH DO, Ot Z86.718 PERSONAL HISTORY OF OTHER VENOUS THROMBO 09/05/2017 VIANNEY SMITH DO Ot Z87.01 PERSONAL HISTORY OF PNEUMONIA (RECURRENT 09/05/2017 VIANNEY SMITH DO Ot Z88.0 ALLERGY STATUS TO PENICILLIN 09/05/2017 VIANNEY SMITH DO Ot Z88.8 ALLERGY STATUS TO [facility] DRUG/MEDS/BIOL SUB 09/05/2017 VIANNEY SMITH DO [...] DO Ot I25.10 ATHSCL HEART DISEASE OF [place] CORONARY 09/05/2017 VIANNEY SMITH DO Ot I73.9 PERIPHERAL VASCULAR DISEASE, UNSPECIFIED 09/05/2017 VIANNEY SMITH DO, Ot J44.9 CHRONIC OBSTRUCTIVE PULMONARY DISEASE, U 09/05/2017 VIANNEY SMITH DO, Ot J45.909 UNSPECIFIED ASTHMA, UNCOMPLICATED 09/05/2017 VIANNEY SMITH DO Ot K21.9 GASTRO-ESOPHAGEAL REFLUX DISEASE WITHOUT 09/05/2017 VIANNEY SMITH DO Ot N39.0 URINARY TRACT INFECTION, SITE NOT SPECIF 09/05/2017 [facility] VIANNEY MOYA Ot R07.89 OTHER CHEST PAIN 09/05/2017 ANDREAVIANNEY Yusuf DO Ot R60.0 LOCALIZED EDEMA 09/05/2017 ANDREAVIANNEY Yusuf DO Ot Z68.43 BODY MASS INDEX (BMI) 50-59.9 , ADULT 09/05/2017 VIANNEY SMITH DO Ot Z79.01 BARREL WATERER (CURRENT) USE OF ANTICOAGULANT [facility]/05/[facility] Ot Z79.02 [facility] (CURRENT) USE OF ANTITHROMBOTI 09/05/2017 [facility] Ot Z79.82 BARREL WATERER (CURRENT) USE OF ASPIRIN 09/05/2017 ANDREAVIANNEY Yusuf DO Ot Z79.899 OTHER [facility] (CURRENT) DRUG THERAPY 09/05/2017 [facility] DO Ot Z82.49 FAMILY HX OF ISCHEM HEART DIS AND OTH DI 09/05/2017 ANDREAVIANNEY Yusuf DO Ot Z85.038 PERSONAL HISTORY OF MALIGNANT NEOPLASM O 09/05/2017 ANDREAVIANNEY Yusuf DO Ot Z86.711 PERSONAL HISTORY OF PULMONARY EMBOLISM 09/05/2017 [facility] Yusuf DO Ot Z86.718 PERSONAL HISTORY OF OTHER VENOUS THROMBO 09/05/2017 VIANNEY SMITH DO Ot Z87.01 PERSONAL HISTORY OF PNEUMONIA (RECURRENT 09/05/2017 VIANNEY SMITH DO Ot Z88.0 ALLERGY STATUS TO PENICILLIN 09/05/2017 [facility] Yusuf DO Ot Z88.8 [facility]ERGY STATUS TO [facility] DRUG/MEDS/BIOL SUB 09/05/2017 VIANNEY SMITH DO Ot Z91.048 OTHER NONMEDICINAL SUBSTANCE ALLERGY STA 09/05/2017 [facility] Yusuf DO Ot Z95.5 PRESENCE OF CORONARY ANGIOPLASTY IMPLANT 09/27/2017 CHARITO NAM, REAGAN Balderas Ot Z51. 81 ENCOUNTER FOR THERAPEUTIC DRUG LEVEL MON 09/27/2017 REAGAN MCNEILL MD Ot Z79. 01 [facility] (CURRENT) USE OF ANTICOAGULANT 09/27/2017 REAGAN MCNEILL MD Ot Z86.711 PERSONAL HISTORY OF PULMONARY EMBOLISM 01/04/2018 REAGAN MCNEILL MD Ot E03. 9 HYPOTHYROIDISM, UNSPECIFIED 01/04/2018 REAGAN MCNEILL MD Ot E66. 9 OBESITY, UNSPECIFIED 01/04/2018 REAGAN MCNEILL MD Ot E78. 5 HYPERLIPIDEMIA, UNSPECIFIED 01/04/2018 REAGAN MCNEILL MD Ot I10 ESSENTIAL (PRIMARY) HYPERTENSION 01/04/2018 REAGAN MCNEILL MD Ot I25.110 ATHSCL HEART DISEASE OF [place] COR ART W 01/04/2018 REAGAN MCNEILL MD Ot I77. 1 STRICTURE OF ARTERY 01/04/2018 REAGAN MCNEILL MD Ot J45.909 UNSPECIFIED ASTHMA, UNCOMPLICATED 01/04/2018 REAGAN MCNEILL MD Ot R82. 90 UNSPECIFIED ABNORMAL FINDINGS IN URINE 01/04/2018 REAGAN MCNEILL MD Ot Z68. 43 BODY MASS INDEX (BMI) 50-59.9 , ADULT 01/04/2018 REAGAN MCNEILL MD Ot Z79. 01 MCFP (CURRENT) USE OF ANTICOAGULANT 01/04/2018 REAGAN MCNEILL MD Ot Z86.711 PERSONAL HISTORY OF PULMONARY EMBOLISM 01/04/2018 REAGAN MCNEILL MD Ot Z86.718 PERSONAL HISTORY OF OTHER VENOUS THROMBO 04/16/2018 REAGAN MCNEILL MD Ot E03. 9 HYPOTHYROIDISM, UNSPECIFIED 04/16/2018 REAGAN MCNEILL MD Ot E66. 9 OBESITY, UNSPECIFIED 04/16/2018 REAGAN MCNEILL MD Ot E78. 5 HYPERLIPIDEMIA, UNSPECIFIED 04/16/2018 REAGAN MCNEILL MD Ot I10 ESSENTIAL (PRIMARY) HYPERTENSION 04/16/2018 REAGAN MCNEILL MD Ot I25.110 ATHSCL HEART DISEASE OF [place] COR ART W 04/16/2018 REAGAN MCNEILL MD Ot I77. 1 STRICTURE OF ARTERY 04/16/2018 REAGAN MCNEILL MD Ot J45.909 UNSPECIFIED ASTHMA, UNCOMPLICATED 04/16/2018 REAGAN MCNEILL MD Ot R82. 90 UNSPECIFIED ABNORMAL FINDINGS IN URINE 04/16/2018 REAGAN MCNEILL MD Ot Z68. 43 BODY MASS INDEX (BMI) 50-59.9 , ADULT 04/16/2018 REAGAN MCNEILL MD, Ot Z79. 01 BARREL WATERER (CURRENT) USE OF ANTICOAGULANT 04/16/2018 REAGAN MCNEILL MD, Ot Z86.711 PERSONAL HISTORY OF PULMONARY EMBOLISM 04/16/2018 REAGAN MCNEILL MD, Ot Z86.718 PERSONAL HISTORY OF OTHER VENOUS THROMBO 07/09/2018 DEWEY PURDY MD Ot E03. 9 HYPOTHYROIDISM, UNSPECIFIED 07/09/2018 DEWEY PURDY MD Ot E66. 01 MORBID (SEVERE) OBESITY DUE TO EXCESS CA 07/09/2018 DEWEY PURDY MD Ot E78. 00 PURE HYPERCHOLESTEROLEMIA, UNSPECIFIED 07/09/2018 DEWEY PURDY MD Ot G47. 30 SLEEP APNEA, UNSPECIFIED 07/09/2018 DEWEY PURDY MD Ot I10 ESSENTIAL (PRIMARY) HYPERTENSION 07/09/2018 DEWEY PURDY MD Ot I25. 10 ATHSCL HEART DISEASE OF [place] CORONARY 07/09/2018 DEWEY PURDY MD Ot I73. 9 PERIPHERAL VASCULAR DISEASE, UNSPECIFIED 07/09/2018 DEWEY PURDY MD Ot J44. 9 CHRONIC OBSTRUCTIVE PULMONARY DISEASE, U 07/09/2018 DEWEY PURDY MD Ot R55 SYNCOPE AND COLLAPSE 07/09/2018 DEWEY PURDY MD Ot Z79. 01 MCFP (CURRENT) USE OF ANTICOAGULANT 07/09/2018 DEWEY PURDY MD Ot Z79. 02 MCFP (CURRENT) USE OF ANTITHROMBOTI 07/09/2018 DEWEY PURDY MD Ot Z79. 51 BARREL WATERER (CURRENT) USE OF INHALED STERO 07/09/2018 DEWEY PURDY MD Ot Z79. 82 BARREL WATERER (CURRENT) USE OF ASPIRIN 07/09/2018 DEWEY PURDY MD Ot Z80. 0 FAMILY HISTORY OF MALIGNANT NEOPLASM OF 07/09/2018 DEWEY PURDY MD Ot Z82. 49 FAMILY HX OF ISCHEM HEART DIS AND OTH DI 07/09/2018 DEWEY PURDY MD Ot Z85.038 PERSONAL HISTORY OF MALIGNANT NEOPLASM O 07/09/2018 DEWEY PURDY MD Ot Z86.718 PERSONAL HISTORY OF OTHER VENOUS THROMBO 07/09/2018 DEWEY PURDY MD Ot Z87. 01 PERSONAL HISTORY OF PNEUMONIA (RECURRENT 07/09/2018 DEWEY PURDY MD Ot Z87.442 PERSONAL HISTORY OF URINARY CALCULI 07/09/2018 DEWEY PURDY MD Ot Z87.448 PERSONAL HISTORY OF OTHER DISEASES OF UR 07/09/2018 RAJWINDER NAM, DEWEY Patel Ot Z88. 0 ALLERGY STATUS TO PENICILLIN 07/09/2018 DEWEY PURDY MD Ot Z88. 4 ALLERGY STATUS TO ANESTHETIC AGENT STATU 07/09/2018 DEWEY PURDY MD Ot Z88. 8 ALLERGY STATUS TO OTH DRUG/MEDS/BIOL SUB 07/09/2018 DEWEY PURDY MD Ot Z90. 49 ACQUIRED ABSENCE OF OTHER SPECIFIED PART 07/09/2018 DEWEY PURDY MD Ot Z90. 89 ACQUIRED ABSENCE OF OTHER ORGANS 07/09/2018 DEWEY PURDY MD Ot Z91.048 OTHER NONMEDICINAL SUBSTANCE ALLERGY STA 07/09/2018 DEWEY PURDY MD Ot Z95. 5 PRESENCE OF CORONARY ANGIOPLASTY IMPLANT 07/09/2018 DEWEY PURDY MD Ot Z97. 5 PRESENCE OF (INTRAUTERINE) CONTRACEPTIVE 07/09/2018 DEWEY PURDY MD Ot Z98.890 OTHER SPECIFIED POSTPROCEDURAL STATES 07/09/2018 CHARLES FREED Ot 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 07/09/2018 CHARLES FREED Ot 424 .0 MITRAL VALVE DISORDER 07/09/2018 CHARLES FREED Ot [...] DO Ot 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 07/09/2018 CAYDEN CHAS MOYA Ot 625.9 FEM GENITAL SYMPTOMS NOS 07/09/2018 CAYDEN CHAS MOYA Ot 626.8 MENSTRUAL DISORDER NEC 07/09/2018 CAYDEN CHAS MOYA Ot 627.1 POSTMENOPAUSAL BLEEDING 07/09/2018 CAYDEN CHAS MOYA Ot V72.84 EXAM PRE-OPERATIVE NOS 07/09/2018 CAYDEN CHAS MOYA Ot V74.8 SCREEN-BACTERIAL DIS NEC 07/09/2018 CAYDNE CHAS MOYA Ot 789.03 ABDOMINAL PAIN, RIGHT LOWER QUADRANT 07/09/2018 CHARLES FREED Ot 729 .5 PAIN IN LIMB 07/09/2018 CATERINA SHAH DO Ot 278. 1 LOCALIZED ADIPOSITY 07/09/2018 CATERINA SHAH DO Ot 493. 90 ASTHMA, UNSPECIFIED 07/09/2018 CATERINA SHAH DO Ot 786. 09 RESPIRATORY ABNORM NEC 07/09/2018 BALDEV LITTLEJOHN DO Ot 569. 3 RECTAL ANAL HEMORRHAGE 07/09/2018 BALDEV LITTLEJOHN DO Ot V72. 84 EXAM PRE-OPERATIVE NOS 07/09/2018 CAYDEN CHAS MOYA Ot 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 07/09/2018 CAYDEN CHAS MOYA Ot 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 ENDOMETRIAL HYPERPLASIA WITHOUT 07/09/2018 CHAS RODARTE DO Ot V25.42 IUD SURVEILLANCE 07/09/2018 CHAS RODARTE DO Ot R10.2 PELVIC AND PERINEAL PAIN 07/09/2018 BALDEV LITTLEJOHN DO Ot R10. 2 PELVIC AND PERINEAL PAIN 07/09/2018 BALDEV LITTLEJOHN DO Ot R10. 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 81 ENCOUNTER FOR THERAPEUTIC DRUG LEVEL MON 07/09/2018 REAGAN MCNEILL MD, Ot Z79. 01 BARREL WATERER (CURRENT) USE OF ANTICOAGULANT 07/09/2018 REAGAN MCNEILL MD, Ot Z86.711 PERSONAL HISTORY OF PULMONARY EMBOLISM 07/09/2018 PAYAL VIGIL DOPSTER Ot M54.2 CERVICALGIA 07/09/2018 PAYAL VIGIL DOPSTER Ot Z53.29 PROC/TRTMT NOT CRD OUT BEC PT DECISION F 07/09/2018 PAYAL VIGIL DOPSTER Ot J98.11 ATELECTASIS 07/09/2018 PAYAL VIGIL DOPSTER Ot Z87.442 PERSONAL HISTORY OF URINARY CALCULI 07/09/2018 MICHAEL WAGNER Ot I10 ESSENTIAL (PRIMARY) HYPERTENSION 07/09/2018 MICHAEL WAGNER Ot I25.10 ATHSCL HEART DISEASE OF [place] CORONARY 07/09/2018 MICHAEL WAGNER Ot R06.09 OTHER FORMS OF DYSPNEA 07/09/2018 MICHAEL WAGNER Ot R07.89 OTHER CHEST PAIN 07/09/2018 REAGAN MCNEILL MD, Ot Z51. 81 ENCOUNTER FOR THERAPEUTIC DRUG LEVEL MON 07/09/2018 REAGAN MCNEILL MD, Ot Z79. 01 BARREL WATERER (CURRENT) USE OF ANTICOAGULANT 07/09/2018 REAGAN MCNEILL MD, Ot Z86.711 PERSONAL HISTORY OF PULMONARY EMBOLISM 07/26/2018 REAGAN MCNEILL MD Ot Z51. 81 ENCOUNTER FOR THERAPEUTIC DRUG LEVEL MON 07/26/2018 REAGAN MCNEILL MD Ot Z79. 01 BARREL WATERER (CURRENT) USE OF ANTICOAGULANT 07/26/2018 REAGAN MCNEILL MD Ot Z86.711 PERSONAL HISTORY OF PULMONARY EMBOLISM 07/26/2018 REAGAN MCNEILL MD Ot Z51. 81 ENCOUNTER FOR THERAPEUTIC DRUG LEVEL MON 07/26/2018 REAGAN MCNEILL MD Ot Z79. 01 MCFP (CURRENT) USE OF ANTICOAGULANT 07/26/2018 REAGAN MCNEILL MD Ot Z86.711 PERSONAL HISTORY OF PULMONARY EMBOLISM 07/26/2018 REAGAN MCNEILL MD Ot Z51. 81 ENCOUNTER FOR THERAPEUTIC DRUG LEVEL MON 07/26/2018 REAGAN MCNEILL MD Ot Z79. 01 BARREL WATERER (CURRENT) USE OF ANTICOAGULANT 07/26/2018 REAGAN MCNEILL MD Ot Z86.711 PERSONAL HISTORY OF PULMONARY EMBOLISM 07/26/2018 REAGAN MCNEILL MD Ot Z51. 81 ENCOUNTER FOR THERAPEUTIC DRUG LEVEL MON 07/26/2018 REAGAN MCNEILL MD Ot Z79. 01 MCFP (CURRENT) USE OF ANTICOAGULANT 07/26/2018 REAGAN MCNEILL MD Ot Z86.711 PERSONAL HISTORY OF PULMONARY EMBOLISM 07/27/2018 REAGAN MCNEILL MD Ot Z51. 81 ENCOUNTER FOR THERAPEUTIC DRUG LEVEL MON 07/27/2018 REAGAN MCNEILL MD Ot Z79. 01 MCFP (CURRENT) USE OF ANTICOAGULANT 07/27/2018 REAGAN MCNEILL MD Ot Z86.711 PERSONAL HISTORY OF PULMONARY EMBOLISM 07/27/2018 REAGAN MCNEILL MD Ot Z51. 81 ENCOUNTER FOR THERAPEUTIC DRUG LEVEL MON 07/27/2018 REAGAN MCNEILL MD Ot Z79. 01 BARREL WATERER (CURRENT) USE OF ANTICOAGULANT 07/27/2018 REAGAN MCNEILL MD Ot Z86.711 PERSONAL HISTORY OF PULMONARY EMBOLISM 07/27/2018 AMANDEEP HAMMOND MD Ot E03.9 HYPOTHYROIDISM, UNSPECIFIED 07/27/2018 AMANDEEP HAMMOND MD, Ot E78.0 0 PURE HYPERCHOLESTEROLEMIA, UNSPECIFIED 07/27/2018 AMANDEEP HAMMOND MD, Ot G43.9 09 MIGRAINE, UNSP, NOT INTRACTABLE, WITHOUT 07/27/2018 AMANDEEP HAMMOND MD, Ot I25.1 0 ATHSCL HEART DISEASE OF [place] CORONARY 07/27/2018 AMANDEEP HAMMOND MD, Ot J45.9 09 UNSPECIFIED ASTHMA, UNCOMPLICATED 07/27/2018 AMANDEEP HAMMOND MD, Ot K21.9 GASTRO-ESOPHAGEAL REFLUX DISEASE WITHOUT 07/27/2018 AMANDEEP HAMMOND MD, Ot M79.6 71 PAIN IN RIGHT FOOT 07/27/2018 AMANDEEP HAMMOND MD, Ot S96.911A STRAIN OF UNSP MSL/TND AT ANK/FT LEVEL, 07/27/2018 AMANDEEP HAMMOND MD, Ot W22.8XXA STRIKING AGAINST OR STRUCK BY OTHER OBJE 07/27/2018 AMANDEEP HAMMOND MD, Ot Z79.0 1 [facility] (CURRENT) USE OF ANTICOAGULANT 07/27/2018 AMANDEEP HAMMOND MD, Ot Z79.8 2 BARREL WATERER (CURRENT) USE OF ASPIRIN 07/27/2018 AMANDEEP HAMMOND MD, Ot Z87.4 42 PERSONAL HISTORY OF URINARY CALCULI 07/27/2018 AMANDEEP HAMMOND MD, Ot Z88.0 ALLERGY STATUS TO PENICILLIN 07/27/2018 AMANDEEP HAMMOND MD, Ot Z88.5 ALLERGY STATUS TO NARCOTIC AGENT STATUS 07/27/2018 AMANDEEP HAMMOND MD, Ot Z88.6 ALLERGY STATUS TO ANALGESIC AGENT STATUS 07/27/2018 AMANDEEP HAMMOND MD, Ot Z88.8 ALLERGY STATUS TO OTH DRUG/MEDS/BIOL SUB 07/27/2018 AMANDEEP HAMMOND MD, Ot Z90.4 9 ACQUIRED ABSENCE OF OTHER SPECIFIED PART 07/27/2018 AMANDEEP HAMMOND MD, Ot Z90.7 10 ACQUIRED ABSENCE OF BOTH CERVIX AND UTER 07/27/2018 AMANDEEP HAMMOND MD, Ot Z91.0 30 BEE ALLERGY STATUS 07/27/2018 AMANDEEP HAMMOND MD, Ot Z95.5 PRESENCE OF CORONARY ANGIOPLASTY IMPLANT 07/28/2018 AMANDEEP HAMMOND MD, Ot E03.9 HYPOTHYROIDISM, UNSPECIFIED 07/28/2018 AMANDEEP HAMMOND MD, Ot E78.0 0 PURE HYPERCHOLESTEROLEMIA, UNSPECIFIED 07/28/2018 AMANDEEP HAMMOND MD, Ot G43.9 09 MIGRAINE, UNSP, NOT INTRACTABLE, WITHOUT 07/28/2018 ENYART MD, AMANDEEP E Ot I25.1 0 ATHSCL HEART DISEASE OF [place] CORONARY 07/28/2018 AMANDEEP HAMMOND MD, Ot J45.9 09 UNSPECIFIED ASTHMA, UNCOMPLICATED 07/28/2018 AMANDEEP HAMMOND MD, Ot K21.9 GASTRO-ESOPHAGEAL REFLUX DISEASE WITHOUT 07/28/2018 AMANDEEP HAMMOND MD, Ot M79.6 71 PAIN IN RIGHT FOOT 07/28/2018 AMANDEEP HAMMOND MD, Ot S96.911A STRAIN OF UNSP MSL/TND AT ANK/FT LEVEL, 07/28/2018 AMANDEEP HAMMOND MD, Ot W22.8XXA STRIKING AGAINST OR STRUCK BY OTHER OBJE 07/28/2018 AMANDEEP HAMMOND MD, Ot Z79.0 1 BARREL WATERER (CURRENT) USE OF ANTICOAGULANT 07/28/2018 AMANDEEP HAMMOND MD, Ot Z79.8 2 BARREL WATERER (CURRENT) USE OF ASPIRIN 07/28/2018 AMANDEEP HAMMOND MD, Ot Z87.4 42 PERSONAL HISTORY OF URINARY CALCULI 07/28/2018 AMANDEEP HAMMOND MD, Ot Z88.0 ALLERGY STATUS TO PENICILLIN 07/28/2018 AMANDEEP HAMMOND MD, Ot Z88.5 ALLERGY STATUS TO NARCOTIC AGENT STATUS 07/28/2018 AMANDEEP HAMMOND MD, Ot Z88.6 ALLERGY STATUS TO ANALGESIC AGENT STATUS 07/28/2018 AMANDEEP HAMMOND MD, Ot Z88.8 ALLERGY STATUS TO OTH DRUG/MEDS/BIOL SUB 07/28/2018 AMANDEEP HAMMOND MD, Ot Z90.4 9 ACQUIRED ABSENCE OF OTHER SPECIFIED PART 07/28/2018 AMANDEEP HAMMOND MD, Ot Z90.7 10 ACQUIRED ABSENCE OF BOTH CERVIX AND UTER 07/28/2018 AMANDEEP HAMMOND MD, Ot Z91.0 30 BEE ALLERGY STATUS 07/28/2018 AMANDEEP HAMMOND MD, Ot Z95.5 PRESENCE OF CORONARY ANGIOPLASTY IMPLANT 08/12/2018 NEVA HU DOPSTER Ot R42 DIZZINESS AND GIDDINESS 08/12/2018 NEVA HU DOPSTER Ot R55 SYNCOPE AND COLLAPSE 08/12/2018 MAYTENEVA DOPSTER Ot R42 DIZZINESS AND GIDDINESS 08/12/2018 NEVA HU DOPSTER Ot R55 SYNCOPE AND COLLAPSE 08/12/2018 NEVA HU DOPSTER Ot R42 DIZZINESS AND GIDDINESS 08/12/2018 NEVA HU DOPSTER Ot R55 SYNCOPE AND COLLAPSE 08/17/2018 NEVA HU DOPSTER Ot R42 DIZZINESS AND GIDDINESS 08/17/2018 NEVA HU DOPSTER Ot R55 SYNCOPE AND COLLAPSE 09/06/2018 NEVA HU DOPSTER Ot R42 DIZZINESS AND GIDDINESS 09/06/2018 NEVA HU DOPSTER Ot R55 SYNCOPE AND COLLAPSE 09/10/2018 NEVA HU DOPSTER Ot R42 DIZZINESS AND GIDDINESS 09/10/2018 NEVA HU DOPSTER Ot R55 SYNCOPE AND COLLAPSE 09/12/2018 DIANA [...] DO, Ot I25.10 ATHSCL HEART DISEASE OF [place] CORONARY 10/05/2018 ALEJANDRA MARTIN DO, Ot J45.909 UNSPECIFIED ASTHMA, UNCOMPLICATED 10/05/2018 ALEJANDRA MARTIN DO, Ot K21.9 GASTRO-ESOPHAGEAL REFLUX DISEASE WITHOUT 10/05/2018 ALEJANDRA MARTIN DO, Ot R07.89 OTHER CHEST PAIN 10/05/2018 ALEJANDRA MARTIN DO, Ot R07.9 CHEST PAIN, UNSPECIFIED 10/05/2018 ALEJANDRA MARTIN DO, Ot Z79.01 BARREL WATERER (CURRENT) USE OF ANTICOAGULANT 10/05/2018 ALEJANDRA MARTIN DO, Ot Z79.02 BARREL WATERER (CURRENT) USE OF ANTITHROMBOTI 10/05/2018 ALEJANDRA MARTIN DO, Ot Z79.52 BARREL WATERER (CURRENT) USE OF SYSTEMIC STER 10/05/2018 ALEJANDRA MARTIN DO, Ot Z79.82 BARREL WATERER (CURRENT) USE OF ASPIRIN 10/05/2018 ALEJANDRA MARTIN [...] MARTIN DO, Ot Z88.8 ALLERGY STATUS TO [facility] DRUG/MEDS/BIOL SUB 10/05/2018 ALEJANDRA MARTIN DO, [...] POSTPROCEDURAL STATES 10/07/2018 SHALOM RAMÍREZ APRN Ot E03 .9 HYPOTHYROIDISM, UNSPECIFIED 10/07/2018 SHALOM RAMÍREZ APRN Ot E66.01 MORBID (SEVERE) OBESITY DUE TO EXCESS CA 10/07/2018 SHALOM RAMÍREZ APRN Ot E78.00 PURE HYPERCHOLESTEROLEMIA, UNSPECIFIED 10/07/2018 SHALOM RAMÍREZ APRN Ot G47.30 SLEEP APNEA, UNSPECIFIED 10/07/2018 SHALOM RAMÍREZ APRN Ot I10 ESSENTIAL (PRIMARY) HYPERTENSION 10/07/2018 SHALOM RAMÍREZ APRN Ot 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 10/07/2018 SHALOM RAMÍREZ APRN Ot I25.10 ATHSCL HEART DISEASE OF [place] CORONARY 10/07/2018 SHALOM RAMÍREZ APRN Ot I73 .9 PERIPHERAL VASCULAR DISEASE, UNSPECIFIED 10/07/2018 SHALOM RAMÍREZ APRN Ot J44 .9 CHRONIC OBSTRUCTIVE PULMONARY DISEASE, U 10/07/2018 SHALOM RAMÍREZ APRN Ot K21 .9 GASTRO-ESOPHAGEAL REFLUX DISEASE WITHOUT 10/07/2018 SHALOM RAMÍREZ APRN Ot R07 .2 PRECORDIAL PAIN 10/07/2018 SHALOM RAMÍREZ APRN Ot Z68.43 BODY MASS INDEX (BMI) 50-59.9 , ADULT 10/07/2018 SHALOM RAMÍREZ APRN Ot Z79.01 BARREL WATERER (CURRENT) USE OF ANTICOAGULANT 10/07/2018 SHALOM RAMÍREZ APRN Ot Z79.02 BARREL WATERER (CURRENT) USE OF ANTITHROMBOTI 10/07/2018 SHALOM RAMÍREZ APRN Ot Z79.51 BARREL WATERER (CURRENT) USE OF INHALED STERO 10/07/2018 SHALOM RAMÍREZ APRN Ot Z79.82 BARREL WATERER (CURRENT) USE OF ASPIRIN 10/07/2018 SHALOM RAMÍREZ APRN Ot Z80 .0 FAMILY HISTORY OF MALIGNANT NEOPLASM OF 10/07/2018 [...] OF UR 10/07/2018 SHALOM RAMÍREZ APRN Ot Z88 .0 ALLERGY STATUS TO PENICILLIN 10/07/2018 SHALOM RAMÍREZ APRN Ot Z88 .8 ALLERGY STATUS TO OTH DRUG/MEDS/BIOL SUB 10/07/2018 SHALOM RAMÍREZ APRN Ot Z90.49 ACQUIRED ABSENCE OF OTHER SPECIFIED PART 10/07/2018 SHALOM RAMÍREZ APRN Ot Z90.710 ACQUIRED ABSENCE OF BOTH CERVIX AND UTER 10/07/2018 SHALOM RAMÍREZ APRN Ot Z90.89 ACQUIRED ABSENCE OF OTHER ORGANS 10/07/2018 SHALOM RAMÍREZ APRN Ot Z91.048 OTHER NONMEDICINAL SUBSTANCE ALLERGY STA 10/07/2018 SHALOM RAMÍREZ APRN Ot Z97 .5 PRESENCE OF (INTRAUTERINE) CONTRACEPTIVE 10/08/2018 ALEJANDRA MARTIN DO, Ot E03.9 HYPOTHYROIDISM, UNSPECIFIED 10/08/2018 ALEJANDRA MARTIN DO, Ot E78.00 PURE HYPERCHOLESTEROLEMIA, UNSPECIFIED 10/08/2018 ALEJANDRA MARTIN DO, Ot G43.909 MIGRAINE, UNSP, NOT INTRACTABLE, WITHOUT 10/08/2018 ALEJANDRA MARTIN DO, Ot G47.30 SLEEP APNEA, UNSPECIFIED 10/08/2018 ALEJANDRA MARTIN DO, Ot G62.9 POLYNEUROPATHY, UNSPECIFIED 10/08/2018 ALEJANDRA MARTIN DO, Ot I25.10 ATHSCL HEART DISEASE OF [place] CORONARY 10/08/2018 ALEJANDRA MARTIN DO, Ot J45.909 UNSPECIFIED ASTHMA, UNCOMPLICATED 10/08/2018 ALEJANDRA MARTIN DO, Ot K21.9 GASTRO-ESOPHAGEAL REFLUX DISEASE WITHOUT 10/08/2018 ALEJANDRA MARTIN DO, Ot R07.89 OTHER CHEST PAIN 10/08/2018 ALEJANDRA MARTIN DO, Ot R07.9 CHEST PAIN, UNSPECIFIED 10/08/2018 ALEJANDRA MARTIN DO, Ot Z79.01 BARREL WATERER (CURRENT) USE OF ANTICOAGULANT 10/08/2018 ALEJANDRA MARTIN DO, Ot Z79.02 [facility] (CURRENT) USE OF ANTITHROMBOTI 10/08/2018 ALEJANDRA MARTNI DO, Ot Z79.52 [facility] (CURRENT) USE OF SYSTEMIC STER 10/08/2018 ALEJANDRA MARTIN DO, Ot Z79.82 [facility] (CURRENT) USE OF ASPIRIN 10/08/2018 ALEJANDRA MARTIN [...] DO, Ot I25.10 ATHSCL HEART DISEASE OF [place] CORONARY 10/11/2018 ALEJANDRA MARTIN DO, Ot J45.909 UNSPECIFIED ASTHMA, UNCOMPLICATED 10/11/2018 ALEJANDRA MARTIN DO, Ot K21.9 GASTRO-ESOPHAGEAL REFLUX DISEASE WITHOUT 10/11/2018 ALEJANDRA MARTIN DO, Ot R07.89 OTHER CHEST PAIN 10/11/2018 ALEJANDRA MARTIN DO, Ot R07.9 CHEST PAIN, UNSPECIFIED 10/11/2018 ALEJANDRA MARTIN DO, Ot Z79.01 BARREL WATERER (CURRENT) USE OF ANTICOAGULANT 10/11/2018 ALEJANDRA MARTIN DO, Ot Z79.02 [facility] (CURRENT) USE OF ANTITHROMBOTI 10/11/2018 ALEJANDRA MARTIN DO, Ot Z79.52 BARREL WATERER (CURRENT) USE OF SYSTEMIC STER 10/11/2018 ALEJANDRA MARTIN DO, Ot Z79.82 [facility] (CURRENT) USE OF ASPIRIN 10/11/2018 ALEJANDRA MARTIN [...] MARTIN DO, Ot Z88.8 ALLERGY STATUS TO [facility] DRUG/MEDS/BIOL SUB 10/11/2018 ALEJANDRA MARTIN DO, Ot Z90.49 ACQUIRED ABSENCE OF OTHER SPECIFIED PART 10/11/2018 ALEJANDRA MARTIN DO, Ot Z90.710 ACQUIRED ABSENCE OF BOTH CERVIX AND UTER 10/11/2018 ALEJANDRA MARTIN DO, Ot Z91.048 OTHER NONMEDICINAL SUBSTANCE ALLERGY STA 10/11/2018 ALEJANDRA MARTIN DO, Ot Z95.5 PRESENCE OF CORONARY ANGIOPLASTY IMPLANT 10/11/2018 ALEJANDRA MARTIN DO, Ot Z98.890 OTHER SPECIFIED POSTPROCEDURAL STATES 11/05/2018 REAGAN MCNEILL MD Ot Z51. 81 ENCOUNTER FOR THERAPEUTIC DRUG LEVEL MON 11/05/2018 REAGAN MCNEILL MD Ot Z79. 01 [facility] (CURRENT) USE OF ANTICOAGULANT 11/05/2018 REAGAN MCNEILL MD Ot Z86.711 PERSONAL HISTORY OF PULMONARY EMBOLISM 11/05/2018 REAGAN MCNEILL MD Ot Z51. 81 ENCOUNTER FOR THERAPEUTIC DRUG LEVEL MON 11/05/2018 REAGAN MCNEILL MD Ot Z79. 01 [facility] (CURRENT) USE OF ANTICOAGULANT 11/05/2018 REAGAN MCNEILL MD, Ot Z86.711 PERSONAL HISTORY OF PULMONARY EMBOLISM 11/05/2018 NORIS DHOERTY DO Ot E03.9 HYPOTHYROIDISM, UNSPECIFIED 11/05/2018 NORIS DOHERTY DO Ot E78.00 PURE HYPERCHOLESTEROLEMIA, UNSPECIFIED 11/05/2018 NORIS DOHERTY DO Ot G43.909 MIGRAINE, UNSP, NOT INTRACTABLE, WITHOUT 11/05/2018 NORIS DOHERTY DO Ot G47.30 SLEEP APNEA, UNSPECIFIED 11/05/2018 NORIS DOHERTY DO Ot I25.10 ATHSCL HEART DISEASE OF [place] CORONARY 11/05/2018 NORIS DOHERTY DO, Ot J45.909 UNSPECIFIED ASTHMA, UNCOMPLICATED 11/05/2018 NORIS DOHERTY DO Ot K21.9 GASTRO-ESOPHAGEAL REFLUX DISEASE WITHOUT 11/05/2018 NORIS DOHERTY DO Ot K62.5 HEMORRHAGE OF ANUS AND RECTUM 11/05/2018 NORIS DOHERTY DO Ot N39.0 URINARY TRACT INFECTION, SITE NOT SPECIF 11/05/2018 NORIS DOHERTY DO Ot R11.2 NAUSEA WITH VOMITING, UNSPECIFIED 11/05/2018 NORIS DOHERTY DO Ot Z79.01 BARREL WATERER (CURRENT) USE OF ANTICOAGULANT 11/05/2018 NORIS DOHERTY DO Ot Z79.02 BARREL WATERER (CURRENT) USE OF ANTITHROMBOTI 11/05/2018 NORIS DOHERTY DO Ot Z79.82 [facility] (CURRENT) USE OF ASPIRIN 11/05/2018 NORIS DOHERTY DO Ot Z80.0 FAMILY HISTORY OF MALIGNANT NEOPLASM OF 11/05/2018 NORIS DOHERTY DO, Ot Z82.49 FAMILY HX OF ISCHEM HEART DIS AND OTH DI 11/05/2018 NORIS DOHERTY DO Ot Z87.442 PERSONAL HISTORY OF URINARY CALCULI 11/05/2018 NORIS DOHERTY DO, Ot Z88.0 ALLERGY STATUS TO PENICILLIN 11/05/2018 BESSY NORIS MOYA Ot Z88.5 ALLERGY STATUS TO NARCOTIC AGENT STATUS 11/05/2018 BESSY NORIS MOYA Ot Z88.8 ALLERGY STATUS TO OTH DRUG/MEDS/BIOL SUB 11/05/2018 NORIS DOHERTY DO Ot Z90.49 ACQUIRED ABSENCE OF OTHER SPECIFIED PART 11/05/2018 NORIS DOHERTY DO Ot Z90.710 ACQUIRED ABSENCE OF BOTH CERVIX AND UTER 11/05/2018 NORIS DOHERTY DO Ot Z95.5 PRESENCE OF CORONARY ANGIOPLASTY IMPLANT 11/08/2018 NORIS DOHERTY DO Ot E03.9 HYPOTHYROIDISM, UNSPECIFIED 11/08/2018 BESSY NORIS MOYA Ot E78.00 PURE HYPERCHOLESTEROLEMIA, UNSPECIFIED 11/08/2018 BESSY NORIS MOYA Ot G43.909 MIGRAINE, UNSP, NOT INTRACTABLE, WITHOUT 11/08/2018 BESSY NORIS MOYA Ot G47.30 SLEEP APNEA, UNSPECIFIED 11/08/[address] [place] NORIS MOYA Ot I25.10 ATHSCL HEART DISEASE OF [place] CORONARY 11/08/2018 NORIS DOHERTY DO Ot J45.909 UNSPECIFIED ASTHMA, UNCOMPLICATED 11/08/2018 BESSY NORIS MOYA Ot K21.9 GASTRO-ESOPHAGEAL REFLUX DISEASE WITHOUT 11/08/2018 NORIS DOHERTY DO Ot K62.5 HEMORRHAGE OF ANUS AND RECTUM 11/08/2018 BESSY NORIS MOYA Ot N39.0 URINARY TRACT INFECTION, SITE NOT SPECIF 11/08/2018 BESSY NORIS MOYA Ot R11.2 NAUSEA WITH VOMITING, UNSPECIFIED 11/08/2018 NORIS DOHERTY DO Ot Z79.01 [facility] (CURRENT) USE OF ANTICOAGULANT 11/08/2018 NORIS DOHERTY DO Ot Z79.02 BARREL WATERER (CURRENT) USE OF ANTITHROMBOTI 11/08/2018 NORIS DOHERTY DO Ot Z79.82 BARREL WATERER (CURRENT) USE OF ASPIRIN 11/08/2018 BESSY NORIS MOYA Ot Z80.0 FAMILY HISTORY OF MALIGNANT NEOPLASM OF 11/08/2018 NORIS DOHERTY DO Ot Z82.49 FAMILY HX OF ISCHEM HEART DIS AND OTH DI 11/08/2018 NORIS DOHERTY DO Ot Z87.442 PERSONAL HISTORY OF URINARY CALCULI 11/08/2018 NORIS ODHERTY DO Ot Z88.0 ALLERGY STATUS TO PENICILLIN 11/08/2018 NORIS DOHERTY DO Ot Z88.5 ALLERGY STATUS TO NARCOTIC AGENT STATUS 11/08/2018 NORIS DOHERTY DO Ot Z88.8 ALLERGY STATUS TO OTH DRUG/MEDS/BIOL SUB 11/08/2018 NORIS DOHERTY DO Ot Z90.49 ACQUIRED ABSENCE OF OTHER SPECIFIED PART 11/08/2018 NORIS DOHERTY DO Ot Z90.710 ACQUIRED ABSENCE OF BOTH CERVIX AND UTER 11/08/2018 NORIS DOHERTY DO Ot Z95.5 PRESENCE OF CORONARY ANGIOPLASTY IMPLANT 11/13/2018 SHALOM RAMÍREZ APRN Ot E03 .9 HYPOTHYROIDISM, UNSPECIFIED 11/13/2018 SHALOM RAMÍREZ APRN Ot E78.00 PURE HYPERCHOLESTEROLEMIA, UNSPECIFIED 11/13/2018 SHALOM RAMÍREZ APRN Ot G43.909 MIGRAINE, UNSP, NOT INTRACTABLE, WITHOUT 11/13/2018 SHALOM RAMÍREZ APRN Ot G47.30 SLEEP APNEA, UNSPECIFIED 11/13/2018 SHALOM RAMÍREZ APRN Ot G62 .9 POLYNEUROPATHY, UNSPECIFIED 11/13/2018 SHALOM RAMÍREZ APRN Ot I25.10 ATHSCL HEART DISEASE OF [place] CORONARY 11/13/2018 SHALOM RAMÍREZ APRN Ot J45.909 UNSPECIFIED ASTHMA, UNCOMPLICATED 11/13/2018 SHALOM RAMÍREZ APRN Ot K21 .9 GASTRO-ESOPHAGEAL REFLUX DISEASE WITHOUT 11/13/2018 SHALOM RAMÍREZ APRN Ot N39 .0 URINARY TRACT INFECTION, SITE NOT SPECIF 11/13/2018 SHALOM RAMÍREZ APRN Ot R30 .0 DYSURIA 11/13/2018 SHALOM RAMÍREZ APRN Ot Z79.01 [facility] (CURRENT) USE OF ANTICOAGULANT 11/13/2018 SHALOM RAMÍREZ APRN Ot Z79.02 BARREL WATERER (CURRENT) USE OF ANTITHROMBOTI 11/13/2018 SHALMO RAMÍREZ APRN Ot Z79.82 [facility] (CURRENT) USE OF ASPIRIN 11/13/2018 SHALOM RAMÍREZ APRN Ot Z80 .0 FAMILY HISTORY OF MALIGNANT NEOPLASM OF 11/13/2018 SHALOM RAMÍREZ APRN Ot Z82.49 FAMILY HX OF ISCHEM HEART DIS AND OTH DI 11/13/2018 SHALOM RAMÍREZ APRN Ot Z85.038 PERSONAL HISTORY OF MALIGNANT NEOPLASM O 11/13/2018 SHALOM RAMÍREZ APRN Ot Z87.442 PERSONAL HISTORY OF URINARY CALCULI 11/13/2018 SHALOM RAMÍREZ APRN Ot Z88 .0 ALLERGY STATUS TO PENICILLIN 11/13/2018 SHALOM RAMÍREZ APRN Ot Z88 .5 ALLERGY STATUS TO NARCOTIC AGENT STATUS 11/13/2018 SHALOM RAMÍREZ APRN Ot Z88 .6 ALLERGY STATUS TO ANALGESIC AGENT STATUS 11/13/2018 SHALOM RAMÍREZ APRN Ot Z88 .8 ALLERGY STATUS TO OT DRUG/MEDS/BIOL SUB 11/13/2018 SHALOM RAMÍREZ DOPSTER Ot Z90.49 ACQUIRED ABSENCE OF OTHER SPECIFIED PART 11/13/2018 SHALOM RAMÍREZ DOPSTER Ot Z90.710 ACQUIRED ABSENCE OF BOTH CERVIX AND UTER 11/13/2018 SHALOM RAMÍREZ DOPSTER Ot Z95 .5 PRESENCE OF CORONARY ANGIOPLASTY IMPLANT 11/13/2018 MICHAEL WAGNER Ot 278.1 LOCALIZED ADIPOSITY 11/13/2018 MICHAEL WAGNER Ot 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 ATHEROSCLER NOS TYPE VESSEL, NATIV 11/13/2018 MICHAEL WAGNER Ot 496 CHR AIRWAY OBSTRUCT NEC 11/13/2018 MICHAEL WAGNER Ot 786.09 RESPIRATORY ABNORM NEC 11/13/2018 MICHAEL WAGNER Ot 786.50 CHEST PAIN NOS 11/13/2018 CHAS RODARTE DO Ot 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 11/13/2018 CHAS RODARTE DO Ot 625.9 FEM GENITAL SYMPTOMS NOS 11/13/2018 CHAS RODARTE DO Ot 626.8 MENSTRUAL DISORDER NEC 11/13/2018 CHAS RODARTE DO Ot 627.1 POSTMENOPAUSAL BLEEDING 11/13/2018 CHAS RODARTE DO Ot V72.84 EXAM PRE-OPERATIVE NOS 11/13/2018 CHAS RODARTE DO Ot V74.8 SCREEN-BACTERIAL DIS NEC 11/13/2018 CHAS RODARTE DO Ot 789.03 ABDOMINAL PAIN, RIGHT LOWER QUADRANT 11/13/2018 CHARLES FREED Ot 729 .5 PAIN IN LIMB 11/13/2018 CATERINA SHAH DO Ot 278. 1 LOCALIZED ADIPOSITY 11/13/2018 CATERINA SHAH DO Ot 493. 90 ASTHMA, UNSPECIFIED 11/13/2018 CATERINA SHAH DO Ot 786. 09 RESPIRATORY ABNORM NEC 11/13/2018 BALDEV LITTLEJOHN DO Ot 569. 3 RECTAL ANAL HEMORRHAGE 11/13/2018 BALDEV LITTLEJOHN DO Ot V72. 84 EXAM PRE-OPERATIVE NOS 11/13/2018 CHAS RODARTE DO Ot 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 11/13/2018 CHAS RODARTE DO Ot 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 ENDOMETRIAL HYPERPLASIA WITHOUT 11/13/2018 FENECH DO, CHAS S Ot V25.42 IUD SURVEILLANCE 11/13/2018 CAYDEN MOYA CHAS S Ot R10.2 PELVIC AND PERINEAL PAIN 11/13/2018 BALDEV LITTLEJOHN DO Ot R10. 2 PELVIC AND PERINEAL PAIN 11/13/2018 BALDEV LITTLEJOHN DO Ot R10. 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 81 ENCOUNTER FOR THERAPEUTIC DRUG LEVEL MON 11/13/2018 REAGAN MCNEILL MD Ot Z79. 01 BARREL WATERER (CURRENT) USE OF ANTICOAGULANT 11/13/2018 REAGAN MCNEILL MD Ot Z86.711 PERSONAL HISTORY OF PULMONARY EMBOLISM 11/13/2018 PAYAL VIGIL APRN Ot M54.2 CERVICALGIA 11/13/2018 PAYAL VIGIL APRN Ot Z53.29 PROC/TRTMT NOT CRD OUT BEC PT DECISION F 11/13/2018 PAYAL VIGIL APRN Ot J98.11 ATELECTASIS 11/13/2018 PAYAL VIGIL APRN Ot Z87.442 PERSONAL HISTORY OF URINARY CALCULI 11/13/2018 MICHAEL WAGNER Ot I10 ESSENTIAL (PRIMARY) HYPERTENSION 11/13/2018 MICHAEL WAGNER Ot I25.10 ATHSCL HEART DISEASE OF [place] CORONARY 11/13/2018 MICHAEL WAGNER Ot R06.09 OTHER FORMS OF DYSPNEA 11/13/2018 MICHAEL WAGNER Ot R07.89 OTHER CHEST PAIN 11/13/2018 REAGAN MCNEILL MD, Ot Z51. 81 ENCOUNTER FOR THERAPEUTIC DRUG LEVEL MON 11/13/2018 REAGAN MCNEILL MD, Ot Z79. 01 [facility] (CURRENT) USE OF ANTICOAGULANT 11/13/2018 REAGAN MCNEILL MD, Ot Z86.711 PERSONAL HISTORY OF PULMONARY EMBOLISM 11/13/2018 NEVA HU DOPSTER Ot R42 DIZZINESS AND GIDDINESS 11/13/2018 NEVA HU APRN Ot R55 SYNCOPE AND COLLAPSE 11/13/2018 DIANA HUP Ot M79.671 PAIN IN RIGHT FOOT 11/13/2018 DIANA HU SEED CORN PRODUCTION MANAGER Ot Z87.828 PERSONAL HISTORY OF OTH (HEALED) PHYSICA 11/19/2018 SHALOM RAMÍREZ APRN Ot E03 .9 HYPOTHYROIDISM, UNSPECIFIED 11/19/2018 SHALOM RAMÍREZ APRN Ot E78.00 PURE HYPERCHOLESTEROLEMIA, UNSPECIFIED 11/19/2018 SHALOM RAMÍREZ APRN Ot G43.909 MIGRAINE, UNSP, NOT INTRACTABLE, WITHOUT 11/19/2018 SHALOM RAMÍREZ APRN Ot G47.30 SLEEP APNEA, UNSPECIFIED 11/19/2018 SHALOM RAMÍREZ APRN Ot G62 .9 POLYNEUROPATHY, UNSPECIFIED 11/19/2018 SHALOM RAMÍREZ APRN Ot I25.10 ATHSCL HEART DISEASE OF [place] CORONARY 11/19/2018 SHALOM RAMÍREZ APRN Ot J45.909 UNSPECIFIED ASTHMA, UNCOMPLICATED 11/19/2018 SHALOM RAMÍREZ APRN Ot K21 .9 GASTRO-ESOPHAGEAL REFLUX DISEASE WITHOUT 11/19/2018 SHALOM RAMÍREZ APRN Ot N39 .0 URINARY TRACT INFECTION, SITE NOT SPECIF 11/19/2018 SHALOM RAMÍREZ APRN Ot R30 .0 DYSURIA 11/19/2018 SHALOM RAMÍREZ APRN Ot Z79.01 [facility] (CURRENT) USE OF ANTICOAGULANT 11/19/2018 SHALOM RAMÍREZ APRN Ot Z79.02 BARREL WATERER (CURRENT) USE OF ANTITHROMBOTI 11/19/2018 SHALOM RAMÍREZ APRN Ot Z79.82 BARREL WATERER (CURRENT) USE OF ASPIRIN 11/19/2018 SHALOM RAMÍREZ APRN Ot Z80 .0 FAMILY HISTORY OF MALIGNANT NEOPLASM OF 11/19/2018 SHALOM RAMÍREZ APRN Ot Z82.49 FAMILY HX OF ISCHEM HEART DIS AND OTH DI 11/19/2018 SHALOM RAMÍREZ APRN Ot Z85.038 PERSONAL HISTORY OF MALIGNANT NEOPLASM O 11/19/2018 SHALOM RAMÍREZ APRN Ot Z87.442 PERSONAL HISTORY OF URINARY CALCULI 11/19/2018 SHALOM RAMÍREZ APRN Ot Z88 .0 ALLERGY STATUS TO PENICILLIN 11/19/2018 SHALOM RAMÍREZ APRN Ot Z88 .5 ALLERGY STATUS TO NARCOTIC AGENT STATUS 11/19/2018 SHALOM RAMÍREZ APRN Ot Z88 .6 ALLERGY STATUS TO ANALGESIC AGENT STATUS 11/19/2018 SHALOM RAMÍREZ APRN Ot Z88 .8 ALLERGY STATUS TO OTH DRUG/MEDS/BIOL SUB 11/19/2018 SHALOM RAMÍREZ APRN Ot Z90.49 ACQUIRED ABSENCE OF OTHER SPECIFIED PART 11/19/2018 SHALOM RAMÍREZ APRN Ot Z90.710 ACQUIRED ABSENCE OF BOTH CERVIX AND UTER 11/19/2018 SHALOM RAMÍREZ APRN Ot Z95 .5 PRESENCE OF CORONARY ANGIOPLASTY IMPLANT 11/19/2018 SHALOM RAMÍREZ APRN Ot E03 .9 HYPOTHYROIDISM, UNSPECIFIED 11/19/2018 SHALOM RAMÍREZ APRN Ot E78.00 PURE HYPERCHOLESTEROLEMIA, UNSPECIFIED 11/19/2018 SHALOM RAMÍREZ APRN Ot G43.909 MIGRAINE, UNSP, NOT INTRACTABLE, WITHOUT 11/19/2018 SHALOM RAMÍREZ APRN Ot G47.30 SLEEP APNEA, UNSPECIFIED 11/19/2018 SHALOM RAMÍREZ APRN Ot G62 .9 POLYNEUROPATHY, UNSPECIFIED 11/19/2018 SHALOM RAMÍREZ APRN Ot I25.10 ATHSCL HEART DISEASE OF [place] CORONARY 11/19/2018 SHALOM RAMÍREZ APRN Ot J45.909 UNSPECIFIED ASTHMA, UNCOMPLICATED 11/19/2018 SHALOM RAMÍREZ APRN Ot K21 .9 GASTRO-ESOPHAGEAL REFLUX DISEASE WITHOUT 11/19/2018 SHALOM RAMÍREZ APRN Ot N39 .0 URINARY TRACT INFECTION, SITE NOT SPECIF 11/19/2018 SHALOM RAMÍREZ APRN Ot R30 .0 DYSURIA 11/19/2018 SHALOM RAMÍREZ APRN Ot Z79.01 [facility] (CURRENT) USE OF ANTICOAGULANT 11/19/2018 SHALOM RAMÍREZ APRN Ot Z79.02 BARREL WATERER (CURRENT) USE OF ANTITHROMBOTI 11/19/2018 SHALOM RAMÍREZ APRN Ot Z79.82 BARREL WATERER (CURRENT) USE OF ASPIRIN 11/19/2018 SHALOM RAMÍREZ APRN Ot Z80 .0 FAMILY HISTORY OF MALIGNANT NEOPLASM OF 11/19/2018 SHALOM RAMÍREZ APRN Ot Z82.49 FAMILY HX OF ISCHEM HEART DIS AND OTH DI 11/19/2018 SHALOM RAMÍREZ APRN Ot Z85.038 PERSONAL HISTORY OF MALIGNANT NEOPLASM O 11/19/2018 SHALOM RAMÍREZ APRN Ot Z87.442 PERSONAL HISTORY OF URINARY CALCULI 11/19/2018 SHALOM RAMÍREZ APRN Ot Z88 .0 ALLERGY STATUS TO PENICILLIN 11/19/2018 SHALOM RAMÍREZ APRN Ot Z88 .5 ALLERGY STATUS TO NARCOTIC AGENT STATUS 11/19/2018 SHALOM RAMÍREZ APRN Ot Z88 .6 ALLERGY STATUS TO ANALGESIC AGENT STATUS 11/19/2018 SHALOM RAMÍREZ APRN Ot Z88 .8 ALLERGY STATUS TO OT DRUG/MEDS/BIOL SUB 11/19/2018 SHALOM RAMÍREZ APRN Ot Z90.49 ACQUIRED ABSENCE OF OTHER SPECIFIED PART 11/19/2018 SHALOM RAMÍREZ APRN Ot Z90.710 ACQUIRED ABSENCE OF BOTH CERVIX AND UTER 11/19/2018 SHALOM RAMÍREZ APRN Ot Z95 .5 PRESENCE OF CORONARY ANGIOPLASTY IMPLANT 11/20/2018 MICHAEL WAGNER Ot 278.1 LOCALIZED ADIPOSITY 11/20/2018 MICHAEL WAGNER Ot 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 ATHEROSCLER NOS TYPE VESSEL, NATIV 11/20/2018 MICHAEL WAGNER Ot 496 CHR AIRWAY OBSTRUCT NEC 11/20/2018 MICHAEL WAGNER Ot 786.09 RESPIRATORY ABNORM NEC 11/20/2018 MICHAEL WAGNER Ot 786.50 CHEST PAIN NOS 11/20/2018 CAYDEN MOYA CHAS Amanda Ot 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 11/20/2018 CAYDEN MOYA CHAS S Ot 625.9 FEM GENITAL SYMPTOMS NOS 11/20/2018 CAYDEN MOYACHAS Ot 626.8 MENSTRUAL DISORDER NEC 11/20/2018 CAYDEN CHAS MOYA Ot 627.1 POSTMENOPAUSAL BLEEDING 11/20/2018 CAYDEN MOYACHAS Ot V72.84 EXAM PRE-OPERATIVE NOS 11/20/2018 CAYDEN CHAS MOYA Ot V74.8 SCREEN-BACTERIAL DIS NEC 11/20/2018 CAYDEN CHAS MOYA Ot 789.03 ABDOMINAL PAIN, RIGHT LOWER QUADRANT 11/20/2018 CHARLES FREED Ot 729 .5 PAIN IN LIMB 11/20/2018 CATERINA SHAH DO Ot 278. 1 LOCALIZED ADIPOSITY 11/20/2018 CATERINA SHAH DO Ot 493. 90 ASTHMA, UNSPECIFIED 11/20/2018 CATERINA SHAH DO Ot 786. 09 RESPIRATORY ABNORM NEC 11/20/2018 BALDEV LITTLEJOHN DO Ot 569. 3 RECTAL ANAL HEMORRHAGE 11/20/2018 BALDEV LITTLEJOHN DO Ot V72. 84 EXAM PRE-OPERATIVE NOS 11/20/2018 CAYDEN CHAS MOYA Ot 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 11/20/2018 CHAS RODARTE DO Ot 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 ENDOMETRIAL HYPERPLASIA WITHOUT 11/20/2018 CHAS RODARTE DO Ot V25.42 IUD SURVEILLANCE 11/20/2018 CHAS RODARTE DO Ot R10.2 PELVIC AND PERINEAL PAIN 11/20/2018 BALDEV LITTLEJOHN DO Ot R10. 2 PELVIC AND PERINEAL PAIN 11/20/2018 BALDEV LITTLEJOHN DO Ot R10. 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 81 ENCOUNTER FOR THERAPEUTIC DRUG LEVEL MON 11/20/2018 REAGAN MCNEILL MD, Ot Z79. 01 [facility] (CURRENT) USE OF ANTICOAGULANT 11/20/2018 REAGAN MCNEILL MD Ot Z86.711 PERSONAL HISTORY OF PULMONARY EMBOLISM 11/20/2018 PAYAL VIGIL APRN Ot M54.2 CERVICALGIA 11/20/2018 PAYAL VIGIL APRN Ot Z53.29 PROC/TRTMT NOT CRD OUT BEC PT DECISION F 11/20/2018 PAYAL VIGIL APRN Ot J98.11 ATELECTASIS 11/20/2018 PAYAL VIGIL APRN Ot Z87.442 PERSONAL HISTORY OF URINARY CALCULI 11/20/2018 MICHAEL WAGNER Ot I10 ESSENTIAL (PRIMARY) HYPERTENSION 11/20/2018 MICHAEL WAGNER Ot I25.10 ATHSCL HEART DISEASE OF [place] CORONARY 11/20/2018 MICHAEL WAGNER Ot R06.09 OTHER FORMS OF DYSPNEA 11/20/2018 MICHAEL WAGNER Ot R07.89 OTHER CHEST PAIN 11/20/2018 REAGAN MCNEILL MD Ot Z51. 81 ENCOUNTER FOR THERAPEUTIC DRUG LEVEL MON 11/20/2018 REAGAN MCNEILL MD Ot Z79. 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 NOS TYPE VESSEL, NATIV 12/15/2018 MICHAEL WAGNER Ot 496 CHR AIRWAY OBSTRUCT NEC 12/15/2018 MICHAEL WAGNER Ot 786.09 RESPIRATORY ABNORM NEC 12/15/2018 MICHAEL WAGNER Ot 786.50 CHEST PAIN NOS 12/15/2018 CHAS RODARTE DO Ot 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 12/15/2018 CHAS RODARTE DO Ot 625.9 FEM GENITAL SYMPTOMS NOS 12/15/2018 CHAS RODARTE DO Ot 626.8 MENSTRUAL DISORDER NEC 12/15/2018 CAHS RODARTE DO Ot 627.1 POSTMENOPAUSAL BLEEDING 12/15/2018 CHAS RODARTE DO Ot V72.84 EXAM PRE-OPERATIVE NOS 12/15/2018 CHAS RODARTE DO Ot V74.8 SCREEN-BACTERIAL DIS NEC 12/15/2018 CHAS RODARTE DO Ot 789.03 ABDOMINAL PAIN, RIGHT LOWER QUADRANT 12/15/2018 CHARLES FREED Ot 729 .5 PAIN IN LIMB 12/15/2018 CATERINA SHAH DO Ot 278. 1 LOCALIZED ADIPOSITY 12/15/2018 CATERINA SHAH DO Ot 493. 90 ASTHMA, UNSPECIFIED 12/15/2018 CATERINA SHAH DO Ot 786. 09 RESPIRATORY ABNORM NEC 12/15/2018 BALDEV LITTLEJOHN DO Ot 569. 3 RECTAL ANAL HEMORRHAGE 12/15/2018 BALDEV LITTLEJOHN DO Ot V72. 84 EXAM PRE-OPERATIVE NOS 12/15/2018 CAYDEN CHAS MOYA Ot 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 12/15/2018 CAYDEN CHAS MOYA S Ot 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 ENDOMETRIAL HYPERPLASIA WITHOUT 12/15/2018 CHASTITYCHAS JOHNSON DO Ot V25.42 IUD SURVEILLANCE 12/15/2018 CHASTITYCHAS JOHNSON DO Ot R10.2 PELVIC AND PERINEAL PAIN 12/15/2018 BALDEV LITTLEJOHN DO Ot R10. 2 PELVIC AND PERINEAL PAIN 12/15/2018 BALDEV LITTLEJOHN DO Ot R10. 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 81 ENCOUNTER FOR THERAPEUTIC DRUG LEVEL MON 12/15/2018 REAGAN MCNEILL MD Ot Z79. 01 [facility] (CURRENT) USE OF ANTICOAGULANT 12/15/2018 REAGAN MCNEILL MD Ot Z86.711 PERSONAL HISTORY OF PULMONARY EMBOLISM 12/15/2018 PAYAL VIGIL APRN Ot M54.2 CERVICALGIA 12/15/2018 PAYAL VIGIL APRN Ot Z53.29 PROC/TRTMT NOT CRD OUT BEC PT DECISION F 12/15/2018 PAYAL VIGIL APRN Ot J98.11 ATELECTASIS 12/15/2018 PAYAL VIGIL APRN Ot Z87.442 PERSONAL HISTORY OF URINARY CALCULI 12/15/2018 MICHAEL WAGNER Ot I10 ESSENTIAL (PRIMARY) HYPERTENSION 12/15/2018 MICHAEL WAGNER Ot I25.10 ATHSCL HEART DISEASE OF [place] CORONARY 12/15/2018 MICHAEL WAGNER Ot R06.09 OTHER FORMS OF DYSPNEA 12/15/2018 MICHAEL WAGNER Ot R07.89 OTHER CHEST PAIN 12/15/2018 REAGAN MCNEILL MD Ot Z51. 81 ENCOUNTER FOR THERAPEUTIC DRUG LEVEL MON 12/15/2018 REAGAN MCNEILL MD, Ot Z79. 01 BARREL WATERER (CURRENT) USE OF ANTICOAGULANT 12/15/2018 REAGAN MCNEILL MD, Ot Z86.711 PERSONAL HISTORY OF PULMONARY EMBOLISM 12/15/2018 NEVA HU APRN Ot R42 DIZZINESS AND GIDDINESS 12/15/2018 NEVA HU APRN Ot R55 SYNCOPE AND COLLAPSE 12/15/2018 DIANA HU Ot M79.671 PAIN IN RIGHT FOOT 12/15/2018 DIANA HU Ot Z87.828 PERSONAL HISTORY OF OTH (HEALED) PHYSICA 12/17/2018 NEVA HU DOPSTER Ot K31.89 OTHER DISEASES OF STOMACH AND DUODENUM 12/17/2018 NEVA HU APRN Ot K57.30 DVRTCLOS OF LG INT W/O PERFORATION OR AB 12/17/2018 NEVA HU DOPSTER Ot R31 .9 HEMATURIA, UNSPECIFIED 12/17/2018 NEVA HU DOPSTER Ot T18.9XXA FOREIGN BODY OF ALIMENTARY TRACT, PART U 01/03/2019 NEVA HU DOPSTER Ot K31.89 OTHER DISEASES OF STOMACH AND DUODENUM 01/03/2019 NEVA HU DOPSTER Ot K57.30 DVRTCLOS OF LG INT W/O PERFORATION OR AB 01/03/2019 NEVA HU DOPSTER Ot R31 .9 HEMATURIA, UNSPECIFIED 01/03/2019 NEVA HU DOPSTER Ot T18.9XXA FOREIGN BODY OF ALIMENTARY TRACT, PART U 01/31/2019 ROSINA VICENTE Ot E03.9 HYPOTHYROIDISM, UNSPECIFIED 01/31/2019 ROSINA VICENTE Ot E78.00 PURE HYPERCHOLESTEROLEMIA, UNSPECIFIED 01/31/2019 BRODY VICENTEIS Ot G43.909 MIGRAINE, UNSP, NOT INTRACTABLE, WITHOUT 01/31/2019 BRODY VICENTEIS Ot G47.30 SLEEP APNEA, UNSPECIFIED 01/31/2019 ROSINA VICENTE Ot I25.10 ATHSCL HEART DISEASE OF [place] CORONARY 01/31/2019 ROSINA VICENTE Ot J45.909 UNSPECIFIED ASTHMA, UNCOMPLICATED 01/31/2019 ROSINA VICENTE Ot K21.9 GASTRO-ESOPHAGEAL REFLUX DISEASE WITHOUT 01/31/2019 BRODY VICENTEIS Ot M25.432 EFFUSION, LEFT WRIST 01/31/2019 BRODY VICENTEIS Ot M79.89 OTHER SPECIFIED SOFT TISSUE DISORDERS 01/31/2019 ROSINA VICENTE Ot R07.9 CHEST PAIN, UNSPECIFIED 01/31/2019 ROSINA VICENTE Ot Z79.01 BARREL WATERER (CURRENT) USE OF ANTICOAGULANT 01/31/2019 ROSINA VICENTE Ot Z79.02 BARREL WATERER (CURRENT) USE OF ANTITHROMBOTI 01/31/2019 ROSINA VICENTE Ot Z79.82 BARREL WATERER (CURRENT) USE OF ASPIRIN 01/31/2019 BRODY VICENTEIS Ot Z80.0 FAMILY HISTORY OF MALIGNANT NEOPLASM OF 01/31/2019 ROSINA VICENTE Ot Z82.49 FAMILY HX OF ISCHEM HEART DIS AND OTH DI 01/31/2019 ROSINA VICENTE Ot Z85.038 PERSONAL HISTORY OF MALIGNANT NEOPLASM O 01/31/2019 ROSINA VICENTE Ot Z87.442 PERSONAL HISTORY OF URINARY CALCULI 01/31/2019 ROSINA VICENTE Ot Z88.0 ALLERGY STATUS TO PENICILLIN 01/31/2019 ROSINA VICENTE Ot Z88.6 ALLERGY STATUS TO ANALGESIC AGENT STATUS 01/31/2019 ROSINA VICENTE Ot Z88.8 ALLERGY STATUS TO OT DRUG/MEDS/BIOL SUB 01/31/2019 ROSINA VICENTE Ot Z90.49 ACQUIRED ABSENCE OF OTHER SPECIFIED PART 01/31/2019 ROSINA VICENTE Ot Z90.710 ACQUIRED ABSENCE OF BOTH CERVIX AND UTER 01/31/2019 ROSINA VICENTE Ot Z95.5 PRESENCE OF CORONARY ANGIOPLASTY IMPLANT 02/02/2019 ROSINA VICENTE Ot E03.9 HYPOTHYROIDISM, UNSPECIFIED 02/02/2019 ROSINA VICENTE Ot E78.00 PURE HYPERCHOLESTEROLEMIA, UNSPECIFIED 02/02/2019 BRODY VICENTEIS Ot G43.909 MIGRAINE, UNSP, NOT INTRACTABLE, WITHOUT 02/02/2019 ROSINA VICENTE Ot G47.30 SLEEP APNEA, UNSPECIFIED 02/02/2019 ROSINA VICENTE Ot I25.10 ATHSCL HEART DISEASE OF [place] CORONARY 02/02/2019 ROSINA VICENTE Ot J45.909 UNSPECIFIED ASTHMA, UNCOMPLICATED 02/02/2019 ROSINA VICENTE Ot K21.9 GASTRO-ESOPHAGEAL REFLUX DISEASE WITHOUT 02/02/2019 ROSINA VICENTE Ot M25.432 EFFUSION, LEFT WRIST 02/02/2019 ROSINA VICENTE Ot M79.89 OTHER SPECIFIED SOFT TISSUE DISORDERS 02/02/2019 ROSINA VICENTE Ot R07.9 CHEST PAIN, UNSPECIFIED 02/02/2019 ROSINA VICENTE Ot Z79.01 MCFP (CURRENT) USE OF ANTICOAGULANT 02/02/2019 ROSINA VICENTE Ot Z79.02 BARREL WATERER (CURRENT) USE OF ANTITHROMBOTI 02/02/2019 ROSINA VICENTE Ot Z79.82 [facility] (CURRENT) USE OF ASPIRIN 02/02/2019 ROSINA VICENTE Ot Z80.0 FAMILY HISTORY OF MALIGNANT NEOPLASM OF 02/02/2019 ROSINA VICENTE Ot Z82.49 FAMILY HX OF ISCHEM HEART DIS AND OTH DI 02/02/2019 ROSINA VICENTE Ot Z85.038 PERSONAL HISTORY OF MALIGNANT NEOPLASM O 02/02/2019 ROSINA VICENTE Ot Z87.442 PERSONAL HISTORY OF URINARY CALCULI 02/02/2019 ROSINA VICENTE Ot Z88.0 ALLERGY STATUS TO PENICILLIN 02/02/2019 ROSINA VICENTE Ot Z88.6 ALLERGY STATUS TO ANALGESIC AGENT STATUS 02/02/2019 ROSINA VICENTE Ot Z88.8 ALLERGY STATUS TO OT DRUG/MEDS/BIOL SUB 02/02/2019 ROSINA VICENTE Ot Z90.49 ACQUIRED ABSENCE OF OTHER SPECIFIED PART 02/02/2019 ROSINA VICENTE Ot Z90.710 ACQUIRED ABSENCE OF BOTH CERVIX AND UTER 02/02/2019 ROSINA VICENTE Ot Z95.5 PRESENCE OF CORONARY ANGIOPLASTY IMPLANT 02/06/2019 ROSINA VICENTE Ot E03.9 HYPOTHYROIDISM, UNSPECIFIED 02/06/2019 ROSINA VICENTE Ot E78.00 PURE HYPERCHOLESTEROLEMIA, UNSPECIFIED 02/06/2019 ROSINA VICENTE Ot G43.909 MIGRAINE, UNSP, NOT INTRACTABLE, WITHOUT 02/06/2019 ROSINA VICENTE Ot G47.30 SLEEP APNEA, UNSPECIFIED 02/06/2019 ROSINA VICENTE Ot I25.10 ATHSCL HEART DISEASE OF [place] CORONARY 02/06/2019 ROSINA VICENTE Ot J45.909 UNSPECIFIED ASTHMA, UNCOMPLICATED 02/06/2019 ROSINA VICENTE Ot K21.9 GASTRO-ESOPHAGEAL REFLUX DISEASE WITHOUT 02/06/2019 ROSINA VICENTE Ot M25.432 EFFUSION, LEFT WRIST 02/06/2019 ROSINA VICENTE Ot M79.89 OTHER SPECIFIED SOFT TISSUE DISORDERS 02/06/2019 ROSINA VICENTE Ot R07.9 CHEST PAIN, UNSPECIFIED 02/06/2019 ROSINA VICENTE Ot Z79.01 MC[facility] (CURRENT) USE OF ANTICOAGULANT 02/06/2019 ROSINA VICENTE Ot Z79.02 MC[facility] (CURRENT) USE OF ANTITHROMBOTI 02/06/2019 ROSINA VICENTE Ot Z79.82 [facility] (CURRENT) USE OF ASPIRIN 02/06/2019 ROSINA VICENTE Ot Z80.0 FAMILY HISTORY OF MALIGNANT NEOPLASM OF 02/06/2019 ROSINA VICENTE Ot Z82.49 FAMILY HX OF ISCHEM HEART DIS AND OTH DI 02/06/2019 ROSINA VICENTE Ot Z85.038 PERSONAL HISTORY OF MALIGNANT NEOPLASM O 02/06/2019 ROSINA VICENTE Ot Z87.442 PERSONAL HISTORY OF URINARY CALCULI 02/06/2019 ROSINA VICENTE Ot Z88.0 ALLERGY STATUS TO PENICILLIN 02/06/2019 ROSINA VICENTE Ot Z88.6 ALLERGY STATUS TO ANALGESIC AGENT STATUS 02/06/2019 ROSINA VICENTE Ot Z88.8 ALLERGY STATUS TO OTH DRUG/MEDS/BIOL SUB 02/06/2019 BERNROSINA GARZA Ot Z90.49 ACQUIRED ABSENCE OF OTHER SPECIFIED PART 02/06/2019 BERNROSINA GARZA Ot Z90.710 ACQUIRED ABSENCE OF BOTH CERVIX AND UTER 02/06/2019 CAMERONBRODY GARZAIS Ot Z95.5 PRESENCE OF CORONARY ANGIOPLASTY IMPLANT 02/06/2019 MALIKA LY MD, Ot E03. 9 HYPOTHYROIDISM, UNSPECIFIED 02/06/2019 MALIKA LY MD, Ot E66. 01 MORBID (SEVERE) OBESITY DUE TO EXCESS CA 02/06/2019 MALIKA LY MD, Ot E78. 00 PURE HYPERCHOLESTEROLEMIA, UNSPECIFIED 02/06/2019 MALIKA LY MD, Ot G47. 30 SLEEP APNEA, UNSPECIFIED 02/06/2019 MALIKA LY MD, Ot G62. 9 POLYNEUROPATHY, UNSPECIFIED 02/06/2019 MALIKA LY MD, Ot I10 ESSENTIAL (PRIMARY) HYPERTENSION 02/06/2019 MALIKA LY MD, Ot I25. 10 ATHSCL HEART DISEASE OF [place] CORONARY 02/06/2019 MALIKA LY MD, Ot I73. 9 PERIPHERAL VASCULAR DISEASE, UNSPECIFIED 02/06/2019 MALIKA LY MD, Ot J44. 9 CHRONIC OBSTRUCTIVE PULMONARY DISEASE, U 02/06/2019 MALIKA LY MD, Ot K21. 9 GASTRO-ESOPHAGEAL REFLUX DISEASE WITHOUT 02/06/2019 MALIKA LY MD, Ot R07. 89 OTHER CHEST PAIN 02/06/2019 MALIKA LY MD, Ot R07. 9 CHEST PAIN, UNSPECIFIED 02/06/2019 MALIKA LY MD, Ot Z68. 43 BODY MASS INDEX (BMI) 50-59.9, ADULT 02/06/2019 MALIKA LY MD, Ot Z79. 01 BARREL WATERER (CURRENT) USE OF ANTICOAGULANT 02/06/2019 MALIKA LY MD, Ot Z79. 02 BARREL WATERER (CURRENT) USE OF ANTITHROMBOTI 02/06/2019 MALIKA LY MD, Ot Z79. 82 MC[facility] (CURRENT) USE OF ASPIRIN 02/06/2019 MALIKA LY MD, Ot Z80. 0 FAMILY HISTORY OF MALIGNANT NEOPLASM OF 02/06/2019 MALIKA LY MD, Ot Z82. 49 FAMILY HX OF ISCHEM HEART DIS AND OTH DI 02/06/2019 MALIKA LY MD, Ot Z85.038 PERSONAL HISTORY OF MALIGNANT NEOPLASM O 02/06/2019 MALIKA LY MD, Ot Z86.711 PERSONAL HISTORY OF PULMONARY EMBOLISM 02/06/2019 MALIKA LY MD, Ot Z87. 19 PERSONAL HISTORY OF OTHER DISEASES OF TH 02/06/2019 MALIKA LY MD, Ot Z88. 0 ALLERGY STATUS TO PENICILLIN 02/06/2019 MALIKA LY MD, Ot Z88. 6 ALLERGY STATUS TO ANALGESIC AGENT STATUS 02/06/2019 MALIKA LY MD, Ot Z88. 8 ALLERGY STATUS TO OTH DRUG/MEDS/BIOL SUB 02/06/2019 MALIKA LY MD, Ot Z90. 49 ACQUIRED ABSENCE OF OTHER SPECIFIED PART 02/06/2019 MALIKA LY MD, Ot Z90.710 ACQUIRED ABSENCE OF BOTH CERVIX AND UTER 02/06/2019 MALIKA LY MD, Ot Z91.030 BEE ALLERGY STATUS 02/06/2019 MALIKA LY MD, Ot Z95. 5 PRESENCE OF CORONARY ANGIOPLASTY IMPLANT 02/08/2019 MALIKA LY MD, Ot E03. 9 HYPOTHYROIDISM, UNSPECIFIED 02/08/2019 MALIKA LY MD, Ot E66. 01 MORBID (SEVERE) OBESITY DUE TO EXCESS CA 02/08/2019 MALIKA LY MD, Ot E78. 00 PURE HYPERCHOLESTEROLEMIA, UNSPECIFIED 02/08/2019 MALIKA LY MD, Ot G47. 30 SLEEP APNEA, UNSPECIFIED 02/08/2019 MALIKA LY MD, Ot G62. 9 POLYNEUROPATHY, UNSPECIFIED 02/08/2019 MALIKA LY MD Ot I10 ESSENTIAL (PRIMARY) HYPERTENSION 02/08/2019 MALIKA LY MD, Ot I25. 10 ATHSCL HEART DISEASE OF [place] CORONARY 02/08/2019 MALIKA LY MD, Ot I73. 9 PERIPHERAL VASCULAR DISEASE, UNSPECIFIED 02/08/2019 MALIKA LY MD, Ot J44. 9 CHRONIC OBSTRUCTIVE PULMONARY DISEASE, U 02/08/2019 MALIKA LY MD, Ot K21. 9 GASTRO-ESOPHAGEAL REFLUX DISEASE WITHOUT 02/08/2019 MALIKA LY MD Ot R07. 89 OTHER CHEST PAIN 02/08/2019 MALIKA LY MD, Ot R07. 9 CHEST PAIN, UNSPECIFIED 02/08/2019 MALIKA LY MD, Ot Z68. 43 BODY MASS INDEX (BMI) 50-59.9, ADULT 02/08/2019 MALIKA LY MD, Ot Z79. 01 MCFP (CURRENT) USE OF ANTICOAGULANT 02/08/2019 MALIKA LY MD, Ot Z79. 02 MC[facility] (CURRENT) USE OF ANTITHROMBOTI 02/08/2019 MALIKA LY MD, Ot Z79. 82 BARREL WATERER (CURRENT) USE OF ASPIRIN 02/08/2019 MALIKA LY MD, Ot Z80. 0 FAMILY HISTORY OF MALIGNANT NEOPLASM OF 02/08/2019 MALIKA LY MD, Ot Z82. 49 FAMILY HX OF ISCHEM HEART DIS AND OTH DI 02/08/2019 MALIKA LY MD, Ot Z85.038 PERSONAL HISTORY OF MALIGNANT NEOPLASM O 02/08/2019 MALIKA LY MD, Ot Z86.711 PERSONAL HISTORY OF PULMONARY EMBOLISM 02/08/2019 MALIKA LY MD, Ot Z87. 19 PERSONAL HISTORY OF OTHER DISEASES OF TH 02/08/2019 MALIKA LY MD, Ot Z88. 0 ALLERGY STATUS TO PENICILLIN 02/08/2019 MALIKA LY MD, Ot Z88. 6 ALLERGY STATUS TO ANALGESIC AGENT STATUS 02/08/2019 MALIKA LY MD, Ot Z88. 8 ALLERGY STATUS TO OT DRUG/MEDS/BIOL SUB 02/08/2019 MALIKA LY MD, Ot Z90. 49 ACQUIRED ABSENCE OF OTHER SPECIFIED PART 02/08/2019 MALIKA LY MD, Ot Z90.710 ACQUIRED ABSENCE OF BOTH CERVIX AND UTER 02/08/2019 MALIKA LY MD, Ot Z91.030 BEE ALLERGY STATUS 02/08/2019 MALIKA LY MD, Ot Z95. 5 PRESENCE OF CORONARY ANGIOPLASTY IMPLANT 05/30/2019 KUMAR OCHOA DO, Ot E03.9 HYPOTHYROIDISM, UNSPECIFIED 05/30/2019 KUMAR OCHOA DO, Ot E66.01 MORBID (SEVERE) OBESITY DUE TO EXCESS CA 05/30/2019 KUMAR OCHOA DO Ot E78.00 PURE HYPERCHOLESTEROLEMIA, UNSPECIFIED 05/30/2019 KUMAR OCHOA DO, Ot G43.909 MIGRAINE, UNSP, NOT INTRACTABLE, WITHOUT 05/30/2019 [facility], KUMAR Will Ot G62.9 POLYNEUROPATHY, UNSPECIFIED 05/30/2019 [facility], KUMAR Will Ot I1 0 ESSENTIAL (PRIMARY) HYPERTENSION 05/30/2019 [facility], KUMAR Will Ot I25.10 ATHSCL HEART DISEASE OF [place] CORONARY 05/30/2019 [facility] , KUMAR Will Ot J06.9 ACUTE UPPER RESPIRATORY INFECTION, UNSPE 05/30/2019 [facility], KUMAR Will Ot J45.909 UNSPECIFIED ASTHMA, UNCOMPLICATED 05/30/2019 [facility], KUMAR Will Ot K21.9 GASTRO-ESOPHAGEAL REFLUX DISEASE WITHOUT 05/30/2019 [facility], KUMAR Will Ot R03.0 ELEVATED BLOOD-PRESSURE READING, W/O JAMES 05/30/2019 [facility], KUMAR Will Ot R07.89 OTHER CHEST PAIN 05/30/2019 [facility], KUMAR Will Ot R73.9 HYPERGLYCEMIA, UNSPECIFIED 05/30/2019 [facility], KUMAR Will Ot Z77.22 CNTCT W AND EXPSR TO ENVIRON TOBACCO SMO 05/30/2019 [facility], KUMAR Will Ot Z79.01 BARREL WATERER (CURRENT) USE OF ANTICOAGULANT 05/30/2019 [facility] Z79.02 BARREL WATERER (CURRENT) USE OF ANTITHROMBOTI 05/30/2019 [facility] Z79.82 BARREL WATERER (CURRENT) USE OF ASPIRIN 05/30/2019 [facility] Z80.0 FAMILY HISTORY OF MALIGNANT NEOPLASM OF 05/30/2019 [facility], KUMAR Will Ot Z82.49 FAMILY HX OF ISCHEM HEART DIS AND OTH DI 05/30/2019 [facility], KUMAR Will Ot Z85.038 PERSONAL HISTORY OF MALIGNANT NEOPLASM O 05/30/2019 [facility] Z86.711 PERSONAL HISTORY OF PULMONARY EMBOLISM 05/30/2019 [facility] Z86.718 PERSONAL HISTORY OF OTHER VENOUS THROMBO 05/30/2019 [facility] Z87.442 PERSONAL HISTORY OF URINARY CALCULI 05/30/2019 [facility] Z88.0 ALLERGY STATUS TO PENICILLIN 05/30/2019 [facility], KUMAR Will Ot Z88.6 ALLERGY STATUS TO ANALGESIC AGENT STATUS 05/30/2019 [facility], KUMAR Will Ot Z88.8 ALLERGY STATUS TO OTH DRUG/MEDS/BIOL SUB 05/30/2019 [facility] Will Ot Z90.49 ACQUIRED ABSENCE OF OTHER SPECIFIED PART 05/30/2019 [facility] Ot Z90.710 ACQUIRED ABSENCE OF BOTH CERVIX AND UTER 05/30/2019 [facility], KUMAR Will Ot Z95.5 PRESENCE OF CORONARY ANGIOPLASTY IMPLANT 05/30/2019 CAYDEN CHAS MOYA Ot 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 05/30/2019 [facility] 625.9 FEM GENITAL SYMPTOMS NOS 05/30/2019 [facility] Ot 626.8 MENSTRUAL DISORDER NEC 05/30/2019 [facility] MOYA Ot 627.1 POSTMENOPAUSAL BLEEDING 05/30/2019 CAYDEN CHAS MOYA Ot V72.84 EXAM PRE-OPERATIVE NOS 05/30/2019 CAYDEN CHAS MOYA Ot V74.8 SCREEN-BACTERIAL DIS NEC 05/30/2019 CAYDEN CHAS MOYA Ot 789.03 ABDOMINAL PAIN, RIGHT LOWER QUADRANT 05/30/2019 CHARLES FREED Ot 729 .5 PAIN IN LIMB 05/30/2019 CATERINA SHAH DO Ot 278. 1 LOCALIZED ADIPOSITY 05/30/2019 CATERINA SHAH DO Ot 493. 90 ASTHMA, UNSPECIFIED 05/30/2019 CATERINA SHAH DO Ot 786. 09 RESPIRATORY ABNORM NEC 05/30/2019 LITTLEJOHNBALDEV ARMAS DO Ot 569. 3 RECTAL ANAL HEMORRHAGE 05/30/2019 BALDEV LITTLEJOHN DO Ot V72. 84 EXAM PRE-OPERATIVE NOS 05/30/2019 CAYDEN CHAS MOYA Ot 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 05/30/2019 CAYDEN CHAS MOYA Ot 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 ENDOMETRIAL HYPERPLASIA WITHOUT 05/30/2019 [facility] CHAS MOYA Ot V25.42 IUD SURVEILLANCE 05/30/2019 [facility] MOYA Ot R10.2 PELVIC AND PERINEAL PAIN 05/30/2019 BALDEV LITTLEJOHN DO Ot R10. 2 PELVIC AND PERINEAL PAIN 05/30/2019 BALDEV LITTLEJOHN DO Ot R10. 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 81 ENCOUNTER FOR THERAPEUTIC DRUG LEVEL MON 05/30/2019 REAGAN MCNEILL MD Ot Z79. 01 BARREL WATERER (CURRENT) USE OF ANTICOAGULANT 05/30/2019 REAGAN MCNEILL MD Ot Z86.711 PERSONAL HISTORY OF PULMONARY EMBOLISM 05/30/2019 PAYAL VIGIL APRN Ot M54.2 CERVICALGIA 05/30/2019 PAYAL VIGIL APRN Ot Z53.29 PROC/TRTMT NOT CRD OUT BEC PT DECISION F 05/30/2019 PAYAL VIGIL APRN Ot J98.11 ATELECTASIS 05/30/2019 PAYAL VIGIL APRN Ot Z87.442 PERSONAL HISTORY OF URINARY CALCULI 05/30/2019 MICHAEL CALABRESE, MICHAEL Resendiz Ot I10 ESSENTIAL (PRIMARY) HYPERTENSION 05/30/2019 MICHAEL WAGNER Ot I25.10 ATHSCL HEART DISEASE OF [place] CORONARY 05/30/2019 MICHAEL WAGNER Ot R06.09 OTHER FORMS OF DYSPNEA 05/30/2019 MICHAEL WAGNER Ot R07.89 OTHER CHEST PAIN 05/30/2019 REAGAN MCNEILL MD, Ot Z51. 81 ENCOUNTER FOR THERAPEUTIC DRUG LEVEL MON 05/30/2019 REAGAN MCNEILL MD, Ot Z79. 01 BARREL WATERER (CURRENT) USE OF ANTICOAGULANT 05/30/2019 REAGAN MCNEILL MD, Ot Z86.711 PERSONAL HISTORY OF PULMONARY EMBOLISM 05/30/2019 NEVA HU DOPSTER Ot R42 DIZZINESS AND GIDDINESS 05/30/2019 NEVA HU DOPSTER Ot R55 SYNCOPE AND COLLAPSE 05/30/2019 DIANA HU Ot M79.671 PAIN IN RIGHT FOOT 05/30/2019 DIANA HU Ot Z87.828 PERSONAL HISTORY OF OTH (HEALED) PHYSICA 05/30/2019 NEVA HU DOPSTER Ot K31.89 OTHER DISEASES OF STOMACH AND DUODENUM 05/30/2019 NEVA HU DOPSTER Ot K57.30 DVRTCLOS OF LG INT W/O PERFORATION OR AB 05/30/2019 NEVA HU DOPSTER Ot R31 .9 HEMATURIA, UNSPECIFIED 05/30/2019 NEVA HU DOPSTER Ot T18.9XXA FOREIGN BODY OF ALIMENTARY TRACT, PART U 05/30/2019 CHAS RODARTE DO Ot 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 05/30/2019 CHAS RODARTE DO Ot 625.9 FEM GENITAL SYMPTOMS NOS 05/30/2019 CHAS RODARTE DO Ot 626.8 MENSTRUAL DISORDER NEC 05/30/2019 CHAS RODARTE DO Ot 627.1 POSTMENOPAUSAL BLEEDING 05/30/2019 CHAS RODARTE DO Ot V72.84 EXAM PRE-OPERATIVE NOS 05/30/2019 CHAS RODARTE DO Ot V74.8 SCREEN-BACTERIAL DIS NEC 05/30/2019 CHAS RODARTE DO Ot 789.03 ABDOMINAL PAIN, RIGHT LOWER QUADRANT 05/30/2019 CHARLES FREED Ot 729 .5 PAIN IN LIMB 05/30/2019 CATERINA SHAH DO M Ot 278. 1 LOCALIZED ADIPOSITY 05/30/2019 CATERINA SHAH DO Ot 493. 90 ASTHMA, UNSPECIFIED 05/30/2019 ALYSSA MOYA CATERINA Santos Ot 786. 09 RESPIRATORY ABNORM NEC 05/30/2019 [facility] 569. 3 RECTAL ANAL HEMORRHAGE 05/30/2019 [facility], BALDEV Blank Ot V72. 84 EXAM PRE-OPERATIVE NOS 05/30/2019 [facility], CHAS S Ot 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 05/30/2019 [facility], CHAS S Ot 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 ENDOMETRIAL HYPERPLASIA WITHOUT 05/30/2019 [facility], CHAS S Ot V25.42 IUD SURVEILLANCE 05/30/2019 [facility] MOYA S Ot R10.2 PELVIC AND PERINEAL PAIN 05/30/2019 [facility] R10. 2 PELVIC AND PERINEAL PAIN 05/30/2019 [facility], BALDEV Blank Ot R10. 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 81 ENCOUNTER FOR THERAPEUTIC DRUG LEVEL MON 05/30/2019 REAGAN MCNEILL MD, Ot Z79. 01 BARREL WATERER (CURRENT) USE OF ANTICOAGULANT 05/30/2019 REAGAN MCNEILL MD, Ot Z86.711 PERSONAL HISTORY OF PULMONARY EMBOLISM 05/30/2019 PAYAL VIGIL APRN Ot M54.2 CERVICALGIA 05/30/2019 PAYAL VIGIL APRN Ot Z53.29 PROC/TRTMT NOT CRD OUT BEC PT DECISION F 05/30/2019 PAYAL VIGIL APRN Ot J98.11 ATELECTASIS 05/30/2019 PAYAL VIGIL APRN Ot Z87.442 PERSONAL HISTORY OF URINARY CALCULI 05/30/2019 MICHAEL WAGNER Ot I10 ESSENTIAL (PRIMARY) HYPERTENSION 05/30/2019 MICHAEL WAGNER Ot I25.10 ATHSCL HEART DISEASE OF [place] CORONARY 05/30/2019 MICHAEL WAGNER Ot R06.09 OTHER FORMS OF DYSPNEA 05/30/2019 MICHAEL WAGNER Ot R07.89 OTHER CHEST PAIN 05/30/2019 REAGAN MCNEILL MD, Ot Z51. 81 ENCOUNTER FOR THERAPEUTIC DRUG LEVEL MON 05/30/2019 REAGAN MCNEILL MD, Ot Z79. 01 MCFP (CURRENT) USE OF ANTICOAGULANT 05/30/2019 REAGAN MCNEILL MD, Ot Z86.711 PERSONAL HISTORY OF PULMONARY EMBOLISM 05/30/2019 NEVA HU DOPSTER Ot R42 DIZZINESS AND GIDDINESS 05/30/2019 NEVA HU APRN Ot R55 SYNCOPE AND COLLAPSE 05/30/2019 DIANA HU Ot M79.671 PAIN IN RIGHT FOOT 05/30/2019 DIANA HU Ot Z87.828 PERSONAL HISTORY OF OTH (HEALED) PHYSICA 05/30/2019 NEVA HU DOPSTER Ot K31.89 OTHER DISEASES OF STOMACH AND DUODENUM 05/30/2019 NEVA HU APRN Ot K57.30 DVRTCLOS OF LG INT W/O PERFORATION OR AB 05/30/2019 NEVA HU DOPSTER Ot R31 .9 HEMATURIA, UNSPECIFIED 05/30/2019 NEVA HU DOPSTER Ot T18.9XXA FOREIGN BODY OF ALIMENTARY TRACT, PART U 05/30/2019 CHASTITYALEX CHAS MOYA Ot 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 05/30/2019 CAYDEN MOYACHAS Ot 625.9 FEM GENITAL SYMPTOMS NOS 05/30/2019 CAYDEN MOYACHAS Ot 626.8 MENSTRUAL DISORDER NEC 05/30/2019 CAYDEN CHAS MOYA Ot 627.1 POSTMENOPAUSAL BLEEDING 05/30/2019 CAYDEN CHAS MOYA Ot V72.84 EXAM PRE-OPERATIVE NOS 05/30/2019 CAYDEN CHAS MOYA Ot V74.8 SCREEN-BACTERIAL DIS NEC 05/30/2019 CAYDEN CHAS MOYA Ot 789.03 ABDOMINAL PAIN, RIGHT LOWER QUADRANT 05/30/2019 CHARLES FREED Ot 729 .5 PAIN IN LIMB 05/30/2019 CATERINA SHAH DO Ot 278. 1 LOCALIZED ADIPOSITY 05/30/2019 CATERINA SHAH DO Ot 493. 90 ASTHMA, UNSPECIFIED 05/30/2019 CATERINA SHAH DO Ot 786. 09 RESPIRATORY ABNORM NEC 05/30/2019 BALDEV LITTLEJOHN DO Ot 569. 3 RECTAL ANAL HEMORRHAGE 05/30/2019 BALDEV LITTLEJOHN DO Ot V72. 84 EXAM PRE-OPERATIVE NOS 05/30/2019 CAYDEN CHAS MOYA Ot 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 05/30/2019 CAYDEN CHAS MOYA Ot 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 ENDOMETRIAL HYPERPLASIA WITHOUT 05/30/2019 CHAS RODARTE DO Ot V25.42 IUD SURVEILLANCE 05/30/2019 CHAS RODARTE DO Ot R10.2 PELVIC AND PERINEAL PAIN 05/30/2019 BALDEV LITTLEJOHN DO Ot R10. 2 PELVIC AND PERINEAL PAIN 05/30/2019 BALDEV LITTLEJOHN DO Ot R10. 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 81 ENCOUNTER FOR THERAPEUTIC DRUG LEVEL MON 05/30/2019 REAGAN MCNEILL MD, Ot Z79. 01 BARREL WATERER (CURRENT) USE OF ANTICOAGULANT 05/30/2019 REAGAN MCNEILL MD, Ot Z86.711 PERSONAL HISTORY OF PULMONARY EMBOLISM 05/30/2019 PAYAL VIGIL APRN Ot M54.2 CERVICALGIA 05/30/2019 PAYAL VIGIL APRN Ot Z53.29 PROC/TRTMT NOT CRD OUT BEC PT DECISION F 05/30/2019 PAYAL VIGIL APRN Ot J98.11 ATELECTASIS 05/30/2019 PAYAL VIGIL APRN Ot Z87.442 PERSONAL HISTORY OF URINARY CALCULI 05/30/2019 MICHAEL WAGNER Ot I10 ESSENTIAL (PRIMARY) HYPERTENSION 05/30/2019 MICHAEL WAGNER Ot I25.10 ATHSCL HEART DISEASE OF [place] CORONARY 05/30/2019 MICHAEL WAGNER Ot R06.09 OTHER FORMS OF DYSPNEA 05/30/2019 MICHAEL WAGNER Ot R07.89 OTHER CHEST PAIN 05/30/2019 REAGAN MCNEILL MD, Ot Z51. 81 ENCOUNTER FOR THERAPEUTIC DRUG LEVEL MON 05/30/2019 REAGAN MCNEILL MD, Ot Z79. 01 BARREL WATERER (CURRENT) USE OF ANTICOAGULANT 05/30/2019 REAGAN MCNEILL MD Ot Z86.711 PERSONAL HISTORY OF PULMONARY EMBOLISM 05/30/2019 DAVIS HUSUNG Blank DOPSTER Ot R42 DIZZINESS AND GIDDINESS 05/30/2019 NEVA HU DOPSTER Ot R55 SYNCOPE AND COLLAPSE 05/30/2019 DIANA HU Ot M79.671 PAIN IN RIGHT FOOT 05/30/2019 DIANA HU Ot Z87.828 PERSONAL HISTORY OF OTH (HEALED) PHYSICA 05/30/2019 DAVIS HUSUNG Blank DOPSTER Ot K31.89 OTHER DISEASES OF STOMACH AND DUODENUM 05/30/2019 MAYTENEVA DOPSTER Ot K57.30 DVRTCLOS OF LG INT W/O PERFORATION OR AB 05/30/2019 NEVA HU DOPSTER Ot R31 .9 HEMATURIA, UNSPECIFIED 05/30/2019 MAYTENEVA DOPSTER Ot T18.9XXA FOREIGN BODY OF ALIMENTARY TRACT, PART U 06/02/2019 KUMAR OCHOA DO, Ot E03.9 HYPOTHYROIDISM, UNSPECIFIED 06/02/2019 GABRIELA KUMAR MOYA Ot E66.01 MORBID (SEVERE) OBESITY DUE TO EXCESS CA 06/02/2019 KUMAR OCHOA DO Ot E78.00 PURE HYPERCHOLESTEROLEMIA, UNSPECIFIED 06/02/2019 GABRIELA KUMAR MOYA Ot G43.909 MIGRAINE, UNSP, NOT INTRACTABLE, WITHOUT 06/02/2019 GABRIELA KUMAR MOYA Ot G62.9 POLYNEUROPATHY, UNSPECIFIED 06/02/2019 GABRIELA KUMAR MOYA Ot I1 0 ESSENTIAL (PRIMARY) HYPERTENSION 06/02/2019 KUMAR OCHOA DO, Ot I25.10 ATHSCL HEART DISEASE OF [place] CORONARY 06/02/2019 KUMAR OCHOA DO, Ot J06.9 ACUTE UPPER RESPIRATORY INFECTION, UNSPE 06/02/2019 KUMAR OCHOA DO, Ot J45.909 UNSPECIFIED ASTHMA, UNCOMPLICATED 06/02/2019 GABRIELA KUMAR MOYA Ot K21.9 GASTRO-ESOPHAGEAL REFLUX DISEASE WITHOUT 06/02/2019 GABRIELA KUMAR MOYA H Ot R03.0 ELEVATED BLOOD-PRESSURE READING, W/O JAMES 06/02/2019 [facility], KUMAR Will Ot R07.89 OTHER CHEST PAIN 06/02/2019 [facility], KUMAR Will Ot R73.9 HYPERGLYCEMIA, UNSPECIFIED 06/02/2019 [facility], KUMAR Will Ot Z77.22 CNTCT W AND EXPSR TO ENVIRON TOBACCO SMO 06/02/2019 [facility], KUMAR Will Ot Z79.01 [facility] (CURRENT) USE OF ANTICOAGULANT 06/02/2019 [facility], KUMAR Will Ot Z79.02 [facility] (CURRENT) USE OF ANTITHROMBOTI 06/02/2019 [facility], KUMAR Will Ot Z79.82 [facility] (CURRENT) USE OF ASPIRIN 06/02/2019 [facility], KUMAR Wlil Ot Z80.0 FAMILY HISTORY OF MALIGNANT NEOPLASM OF 06/02/2019 [facility], KUMAR Will Ot Z82.49 FAMILY HX OF ISCHEM HEART DIS AND OTH DI 06/02/2019 [facility], KUMAR Will Ot Z85.038 PERSONAL HISTORY OF MALIGNANT NEOPLASM O 06/02/2019 [facility], KUMAR Will Ot Z86.711 PERSONAL HISTORY OF PULMONARY EMBOLISM 06/02/2019 [facility], KUMAR Will Ot Z86.718 PERSONAL HISTORY OF OTHER VENOUS THROMBO 06/02/2019 [facility], KUMAR Will Ot Z87.442 PERSONAL HISTORY OF URINARY CALCULI 06/02/2019 [facility]0 ALLERGY STATUS TO PENICILLIN 06/02/2019 [facility] Z88.6 ALLERGY STATUS TO ANALGESIC AGENT STATUS 06/02/2019 [facility], KUMAR Will Ot Z88.8 ALLERGY STATUS TO OT DRUG/MEDS/BIOL SUB 06/02/2019 [facility] Z90.49 ACQUIRED ABSENCE OF OTHER SPECIFIED PART 06/02/2019 [facility], KUMAR Will Ot Z90.710 ACQUIRED ABSENCE OF BOTH CERVIX AND UTER 06/02/2019 [facility] , KUMAR Will Ot Z95.5 PRESENCE OF CORONARY ANGIOPLASTY IMPLANT 09/22/2019 GERMAN MAHMOOD MD Ot E03.9 HYPOTHYROIDISM, UNSPECIFIED 09/22/2019 GERMAN MAHMOOD MD, Ot E66.09 OTHER OBESITY DUE TO EXCESS CALORIES 09/22/2019 GERMAN MAHMOOD MD, Ot G62.9 POLYNEUROPATHY, UNSPECIFIED 09/22/2019 GERMAN MAHMOOD MD, Ot I1 0 ESSENTIAL (PRIMARY) HYPERTENSION 09/22/2019 GERMAN MAHMOOD MD, Ot I25.10 ATHSCL HEART DISEASE OF [place] CORONARY 09/22/2019 GERMAN MAHMOOD MD, Ot J45.909 UNSPECIFIED ASTHMA, UNCOMPLICATED 09/22/2019 GERMAN MAHMOOD MD, Ot K21.9 GASTRO-ESOPHAGEAL REFLUX DISEASE WITHOUT 09/22/2019 GERMAN MAHMOOD MD, Ot R20.0 ANESTHESIA OF SKIN 09/22/2019 GERMAN MAHMOOD MD, Ot Z79.01 BARREL WATERER (CURRENT) USE OF ANTICOAGULANT 09/22/2019 GERMAN MAHMOOD MD, Ot Z79.02 [facility] (CURRENT) USE OF ANTITHROMBOTI 09/22/2019 GERMAN MAHMOOD MD, Ot Z79.82 BARREL WATERER (CURRENT) USE OF ASPIRIN 09/22/2019 GERMAN MAHMOOD MD, Ot Z80.0 FAMILY HISTORY OF MALIGNANT NEOPLASM OF 09/22/2019 GERMAN MAHMOOD MD, Ot Z82.49 FAMILY HX OF ISCHEM HEART DIS AND OTH DI 09/22/2019 GERMAN MAHMOOD MD, Ot Z85.038 PERSONAL HISTORY OF MALIGNANT NEOPLASM O 09/22/2019 GERMAN MAHMOOD MD, Ot Z86.711 PERSONAL HISTORY OF PULMONARY EMBOLISM 09/22/2019 GERMAN MAHMOOD MD, Ot Z86.718 PERSONAL HISTORY OF OTHER VENOUS THROMBO 09/22/2019 GERMAN MAHMOOD MD, Ot Z88.0 ALLERGY STATUS TO PENICILLIN 09/22/2019 GERMAN MAHMOOD MD, Ot Z88.6 ALLERGY STATUS TO ANALGESIC AGENT STATUS 09/22/2019 GERMAN MAHMOOD MD, Ot Z88.8 ALLERGY STATUS TO OT DRUG/MEDS/BIOL SUB 09/22/2019 GERMAN MAHMOOD MD, Ot Z95.5 PRESENCE OF CORONARY ANGIOPLASTY IMPLANT 09/26/2019 GERMAN MAHMOOD MD, Ot E03.9 HYPOTHYROIDISM, UNSPECIFIED 09/26/2019 GERMAN MAHMOOD MD, Ot E66.09 OTHER OBESITY DUE TO EXCESS CALORIES 09/26/2019 GERMAN MAHMOOD MD, Ot G62.9 POLYNEUROPATHY, UNSPECIFIED 09/26/2019 GERMAN MAHMOOD MD, Ot I1 0 ESSENTIAL (PRIMARY) HYPERTENSION 09/26/2019 GERMAN MAHMOOD MD, Ot I25.10 ATHSCL HEART DISEASE OF [place] CORONARY 09/26/2019 GERMAN MAHMOOD MD, Ot J45.909 UNSPECIFIED ASTHMA, UNCOMPLICATED 09/26/2019 GERMAN MAHMOOD MD, Ot K21.9 GASTRO-ESOPHAGEAL REFLUX DISEASE WITHOUT 09/26/2019 GERMAN MAHMOOD MD, Ot R20.0 ANESTHESIA OF SKIN 09/26/2019 GERMAN MAHMOOD MD, Ot Z79.01 [facility] (CURRENT) USE OF ANTICOAGULANT 09/26/2019 GERMAN MAHMOOD MD, Ot Z79.02 [facility] (CURRENT) USE OF ANTITHROMBOTI 09/26/2019 GERMAN MAHMOOD MD, Ot Z79.82 BARREL WATERER (CURRENT) USE OF ASPIRIN 09/26/2019 GERMAN MAHMOOD MD, Ot Z80.0 FAMILY HISTORY OF MALIGNANT NEOPLASM OF 09/26/2019 GERMAN MAHMOOD MD, Ot Z82.49 FAMILY HX OF ISCHEM HEART DIS AND OTH DI 09/26/2019 GERMAN MAHMOOD MD, Ot Z85.038 PERSONAL HISTORY OF MALIGNANT NEOPLASM O 09/26/2019 GERMAN MAHMOOD MD, Ot Z86.711 PERSONAL HISTORY OF PULMONARY EMBOLISM 09/26/2019 GERMAN MAHMOOD MD, Ot Z86.718 PERSONAL HISTORY OF OTHER VENOUS THROMBO 09/26/2019 GERMAN MAHMOOD MD, Ot Z88.0 ALLERGY STATUS TO PENICILLIN 09/26/2019 GREMAN MAHMOOD MD, Ot Z88.6 ALLERGY STATUS TO ANALGESIC AGENT STATUS 09/26/2019 GERMAN MAHMOOD MD, Ot Z88.8 ALLERGY STATUS TO OT DRUG/MEDS/BIOL SUB 09/26/2019 GERMAN MAHMOOD MD, Ot Z95.5 PRESENCE OF CORONARY ANGIOPLASTY IMPLANT Procedures Code Description Performed By Per formed On 10.12 COMPL ETE THYROIDECTOMY 09/11/2009 37.22 LEFT HEART CARDIAC CATH 03/17/2012 88.53 LT H EART ANGIOCARDIOGRAM 03/17/2012 88.56 LORNA LEXUS ARTERIOGR-2 CATH 03/17/2012 38047 XRAY CERVICAL SPINE, 2 OR 3 VIEWS 04/20/2012 29483 ROUT INE VENIPUNCTURE 04/22/2012 38529 INR (IN HOUSE) 04/22/2012 95372 TSH 04/23/2012 58691 OXIMETRY 04/27/2012 09856 THOMAS URE BLOOD OXYGEN LEVEL 05/16/2012 49160 ROUT INE VENIPUNCTURE 06/03/2012 59484 XRAY CHEST 2 VIEW 06/03/2012 48198 BNP 06/03/2012 48436 CBC 06/03/2012 32448 INR (IN HOUSE) 06/03/2012 69490 OXIMETRY 06/03/2012 98539 XRAY FOOT LEFT COMP MIN 3 VIEWS 06/17/2012 10052 SPIR OMETRY 06/29/2012 60297 BRON CHODILATION PRE/POST 06/29/2012 76222 RESP IRATORY FLOW VOLUME LOOP 06/29/2012 29263 UA W / CULTURE IF INDICATED 07/13/[address] A BDOMEN & PELVIS STONE SEARCH 07/28/2012 62413 UA W / CULTURE IF INDICATED 07/28/2012 07518 STON E ANALYSIS 07/29/[address] H EAD/BRAIN W/O & W/DYE 07/30/2012 24398 XRAY ANKLE R COMP MIN, 3 VIEWS 09/02/2012 30423 XRAY FOOT RIGHT 2 VIEWS 09/02/[address] A NGIO, CHEST 10/18/2012 67663 INR (IN HOUSE) 10/28/2012 17008 US G UIDE FOR BIOPSY 12/16/2012 56958 US B REAST(S) ULTRASOUND, BOTH 12/24/2012 14210 INR (IN HOUSE) 01/12/2013 73136 UA W / CULTURE IF INDICATED 01/12/2013 38373 CULT URE URINE 01/14/2013 62886 INR (IN HOUSE) 02/10/2013 18715 ROUT INE VENIPUNCTURE 03/15/2013 51717 XRAY FOOT RIGHT 2 VIEWS 03/15/2013 63060 TSH 03/15/2013 45951 INR (IN HOUSE) 03/15/2013 57595 XRAY CHEST 2 VIEW 03/23/[address] C HEST W/DYE 03/23/2013 50888 ECHO 2D 03/23/2013 21593 OXIMETRY 03/23/2013 98769 INR (IN HOUSE) 03/29/2013 86870 INR (IN HOUSE) 05/18/2013 16235 XRAY CHEST 2 VIEW 05/19/2013 07105 OXIMETRY 05/23/2013 12610 UA W / CULTURE IF INDICATED 06/14/2013 70072 ROUT INE VENIPUNCTURE 06/23/2013 39139 INR (IN HOUSE) 06/23/2013 86866 LIPI D PANEL 06/23/2013 94576 TSH 06/23/2013 69535 MRI EXTREMITY JOINT, LOWER RIGHT, W/O CONTRAST 07/14/2013 ORTHOPEDI JAMARCUS DEVLIN 07/14/2013 67600 ROUT INE VENIPUNCTURE 08/15/2013 74011 INR (IN HOUSE) 08/15/2013 03807 TSH 08/15/2013 11167 INR (IN HOUSE) 09/02/2013 10787 CULT URE URINE 12/16/2013 23987 UA W / CULTURE IF INDICATED 12/16/2013 33945 CULT URE URINE 12/19/2013 40582 ROUT INE VENIPUNCTURE 05/26/2014 56169 INR (IN HOUSE) 05/26/2014 70822 TSH 05/26/2014 67703 CBC 05/26/2014 62929 US V ENOUS DOPPLER (DVT EVAL) 08/07/2014 [id number] DI LATE 1 COR ART, BIFURC, W DRUG-ELUT IN 08/19/2017 [id number] DI LATION OF 1 COR ART WITH DRUG-ELUT INT 08/19/2017 [id number] ME ASURE OF CARDIAC SAMPL PRESSURE, L H 08/19/2017 [id number] FL UOROSCOPY OF MULT COR ART USING L OSM 08/19/2017 [id number] FL UOROSCOPY OF LEFT HEART USING LOW OSMO 08/19/2017 Results Test Result Range Complete blood count (CBC) with automate d white blood cell (WBC) differential - 02/16/16 19:10 Blood leukocytes automated count (number/volume) 9.4 10*3/uL 4.3-11.0 Blood erythrocytes automated count (number/volume) 4.30 10*6/uL 4.35-5.85 Venous blood hemoglobin measurement (mass/volume) 12.7 g/dL 11.5-16.0 Blood hematocrit (volume fraction) 40 % 35-52 Automated erythrocyte mean corpuscular volume 94 [ foz_us] 80-99 Automated erythrocyte mean corpuscular h emoglobin (mass per erythrocyte) 30 pg 25-34 Automated erythrocyte mean corpuscular h emoglobin concentration measurement (mass/volume) 32 g/dL 32-36 Automated erythrocyte distribution width ratio 15. 6 % 10.0- 14.5 Automated blood platelet count [...] 10*3 1.0-4.0 Blood monocytes automated count (number/volume) 0. 7 10*3 0.0-1.0 Automated eosinophil count 0.1 10*3/uL 0 .0-0.3 Automated blood basophil count (count/volume) 0.0 10*3/uL 0.0-0.1 PT panel in platelet poor plasma by coag ulation assay - 02/16/16 19:10 Prothrombin time (PT) in platelet poor plasma by coagu lation assay 30.6 s 12.2-14.7 INR in platelet poor plasma or blood by coagulation as say 2.9 0.8-1.4 Activated partial thromboplastin time (a PTT) in platelet poor plasma bycoagulation assay - 02/16/16 19:10 Activated partial thromboplastin time (a PTT) in platelet poor plasma bycoagulation assay 45 s 24-35 Comprehensive metabolic panel - 02/16/16 19:10 Serum or plasma sodium measurement (moles/volume) 138 mmol/L 135-145 Serum or plasma potassium measurement (moles/volume) 3.8 mmol/L 3.6-5.0 Serum or plasma chloride measurement (moles/volume) 104 mmol/L 98-107 Carbon dioxide 19 mmol/L 21-32 Serum or plasma anion gap determination (moles/volume) 15 mmol/L 5-14 Serum or plasma urea nitrogen measurement (mass/volume ) 7 mg/dL 7-18 Serum or plasma creatinine measurement (mass/volume) 0.80 mg/dL 0.60-1.30 Serum or plasma urea nitrogen/creatinine mass ratio 9 NRG Serum or plasma creatinine measurement w ith calculation of estimated glomerular filtration rate > NRG Serum or plasma glucose measurement (mass/volume) 190 mg/dL 70-105 Serum or plasma calcium measurement (mass/volume) 8.7 mg/dL 8.5-10.1 Serum or plasma total bilirubin measurement (mass/volu me) 0.2 mg/dL 0.1-1.0 Serum or plasma alkaline phosphatase kit surement (enzymatic activity/volume) 99 U/L 40-136 Serum or plasma aspartate aminotransfera se measurement (enzymatic activity/volume) 24 U/L 5-34 Serum or plasma alanine aminotransferase measurement (enzymatic activity/volume) 27 U/L 0-55 Serum or plasma protein measurement (mass/volume) 7.3 g/dL 6.4-8.2 Serum or plasma albumin measurement (mass/volume) 3.9 g/dL 3.2-4.5 Magnesium - 02/16/16 19:10 Magnesium 2.4 mg/dL 1.8-2.4 Serum or plasma troponin i.cardiac measu rement (mass/volume) - 02/16/16 19:10 Serum or plasma troponin i.cardiac measurement (mass/v olume) < ng/mL <0.30 Myoglobin, serum - 02/16/16 19:10 Myoglobin, serum 22.9 ng/mL 10.0-92.0 Serum or plasma troponin i.cardiac measu rement (mass/volume) - 02/16/16 21:25 Serum or plasma troponin i.cardiac measurement (mass/v olume) < ng/mL <0.30 Thyroid Chandler Profile - 04/01/16 09:57 TSH 2.930 uIU/mL 0.450-4.500 Complete blood count (CBC) with automate d white blood cell (WBC) differential - 07/17/16 07:14 Blood leukocytes automated count (number/volume) 8.7 10*3/uL 4.3-11.0 Blood erythrocytes automated count (number/volume) 4.33 10*6/uL 4.35-5.85 Venous blood hemoglobin measurement (mass/volume) 12.9 g/dL 11.5-16.0 Blood hematocrit (volume fraction) 41 % 35-52 Automated erythrocyte mean corpuscular volume 95 [ foz_us] 80-99 Automated erythrocyte mean corpuscular h emoglobin (mass per erythrocyte) 30 pg 25-34 Automated erythrocyte mean corpuscular h emoglobin concentration measurement (mass/volume) 32 g/dL 32-36 Automated erythrocyte distribution width ratio 15. 3 % 10.0- 14.5 Automated blood platelet count [...] 10*3 1.0-4.0 Blood monocytes automated count (number/volume) 0. 6 10*3 0.0-1.0 Automated eosinophil count 0.1 10*3/uL 0 .0-0.3 Automated blood basophil count (count/volume) 0.0 10*3/uL 0.0-0.1 [id number] - 07/17/16 07:14 Serum or plasma urea nitrogen measurement (mass/volume ) 13 mg/dL 7-18 Serum or plasma creatinine measurement (mass/volume) 0.81 mg/dL 0.60-1.30 Serum or plasma urea nitrogen/creatinine mass ratio 16 NRG Serum or plasma creatinine measurement w ith calculation of estimated glomerular filtration rate > NRG Urine Culture, Routine - 08/07/16 14:36 Urine Culture, Routine Note CBC With Differential/Platelet - 7 11:16 WBC 8.6 x10E3/uL 3.4-10.8 RBC 4.22 x10E6/uL 3.77-5.28 Hemoglobin 12.4 g/dL 11.1-15.9 Hematocrit 38.4 % 34.0-46.6 MCV 91 fL 79-97 MCH 29.4 pg 26.6-33.0 MCHC 32.3 g/dL 31.5-35.7 RDW 15.0 % 12.3-15.4 Platelets 228 x10E3/uL 150-379 Neutrophils 67 % Lymphs 26 % Monocytes 6 % Eos 1 % Basos 0 % Neutrophils (Absolute) 5.8 x10E3/uL 1.4- 7.0 Lymphs (Absolute) 2.3 x10E3/uL 0.7-3.1 Monocytes(Absolute) 0.5 x10E3/uL 0.1-0.9 Eos (Absolute) 0.1 x10E3/uL 0.0-0.4 Baso (Absolute) 0.0 x10E3/uL 0.0-0.2 Immature Granulocytes 0 % Immature Grans (Abs) 0.0 x10E3/uL 0.0-0. 1 Comp. Metabolic Panel (14) - 10/22/16 11 :16 Glucose, Serum 109 mg/dL 65-99 BUN 12 [...] 11:16 Hemoglobin A1c 6.8 % 4.8-5.6 Thyroid Chandler Profile - 10/22/16 11:16 TSH 7.960 uIU/mL 0.450-4.500 Thyroxine (T4) Free, Direct, S - 7 11:16 T4,Free (Direct) 0.93 ng/dL 0.82-1.77 Thyroid Peroxidase (TPO) Ab - 10/22/16 1 1:16 Thyroid Peroxidase (TPO) Ab 80 IU/mL 0- 34 Interpretive Comment Comment TSH - 01/05/17 16:10 TSH 7.790 uIU/mL 0.450-4.500 TSH - 01/05/17 16:10 TSH 7.790 uIU/mL 0.450-4.500 Complete blood count (CBC) with automate d white blood cell (WBC) differential - 01/20/17 20:30 Blood leukocytes automated count (number/volume) 10.6 10*3/uL 4.3-11.0 Blood erythrocytes automated count (number/volume) 4.44 10*6/uL 4.35-5.85 Venous blood hemoglobin measurement (mass/volume) 13.3 g/dL 11.5-16.0 Blood hematocrit (volume fraction) 42 % 35-52 Automated erythrocyte mean corpuscular volume 95 [ foz_us] 80-99 Automated erythrocyte mean corpuscular h emoglobin (mass per erythrocyte) 30 pg 25-34 Automated erythrocyte mean corpuscular h emoglobin concentration measurement (mass/volume) 32 g/dL 32-36 Automated erythrocyte distribution width ratio 15. 2 % 10.0- 14.5 Automated blood platelet count [...] 10*3 1.0-4.0 Blood monocytes automated count (number/volume) 0. 7 10*3 0.0-1.0 Automated eosinophil count 0.1 10*3/uL 0 .0-0.3 Automated blood basophil count (count/volume) 0.0 10*3/uL 0.0-0.1 PT panel in platelet poor plasma by coag ulation assay - 01/20/17 20:30 Prothrombin time (PT) in platelet poor plasma by coagu lation assay 22.0 s 12.2-14.7 INR in platelet poor plasma or blood by coagulation as say 1.9 0.8-1.4 Comprehensive metabolic panel - 01/20/17 20:30 Serum or plasma sodium measurement (moles/volume) 138 mmol/L 135-145 Serum or plasma potassium measurement (moles/volume) 4.0 mmol/L 3.6-5.0 Serum or plasma chloride measurement (moles/volume) 102 mmol/L 98-107 Carbon dioxide 24 mmol/L 21-32 Serum or plasma anion gap determination (moles/volume) 12 mmol/L 5-14 Serum or plasma urea nitrogen measurement (mass/volume ) 9 mg/dL 7-18 Serum or plasma creatinine measurement (mass/volume) 0.85 mg/dL 0.60-1.30 Serum or plasma urea nitrogen/creatinine mass ratio 11 NRG Serum or plasma creatinine measurement w ith calculation of estimated glomerular filtration rate > NRG Serum or plasma glucose measurement (mass/volume) 197 mg/dL 70-105 Serum or plasma calcium measurement (mass/volume) 8.9 mg/dL 8.5-10.1 Serum or plasma total bilirubin measurement (mass/volu me) 0.4 mg/dL 0.1-1.0 Serum or plasma alkaline phosphatase kit surement (enzymatic activity/volume) 101 U/L 40-136 Serum or plasma aspartate aminotransfera se measurement (enzymatic activity/volume) 29 U/L 5-34 Serum or plasma alanine aminotransferase measurement (enzymatic activity/volume) 27 U/L 0-55 Serum or plasma protein measurement (mass/volume) 7.9 g/dL 6.4-8.2 Serum or plasma albumin measurement (mass/volume) 3.8 g/dL 3.2-4.5 Magnesium - 01/20/17 20:30 Magnesium 2.2 mg/dL 1.8-2.4 Serum or plasma troponin i.cardiac measu rement (mass/volume) - 01/20/17 20:30 Serum or plasma troponin i.cardiac measurement (mass/v olume) < ng/mL <0.30 THYROID STIMULATING HORMONE - 01/20/17 2 0:30 THYROID STIMULATING HORMONE 2.51 u[iU]/mL 0.35-4.94 Serum or plasma thyroxine (T4) free thomas urement (mass/volume) - 01/20/17 20:30 Serum or plasma thyroxine (T4) free measurement (mass/ volume) 0.94 ng/dL 0.70-1.48 25-hydroxyvitamin D measurement - 20:30 25-hydroxy vitamin D measurement 6 % 30-100 Complete urinalysis with reflex to cultu re - 01/20/17 20:35 Urine color determination YELLOW NRG Urine clarity determination SLIGHTLY CLOUDY NRG Urine pH measurement by test strip 5 5-9 Specific gravity of urine by test strip 1.025 1.016-1.022 Urine protein assay by test strip, semi-quantitative 1+ NEGATIVE Urine glucose detection by automated test strip NE GATIVE NEGATIVE Erythrocytes detection in urine sediment by light micr oscopy 3+ NEGATIVE Urine ketones detection by automated test strip 1+ NEGATIVE Urine nitrite detection by test strip NEGATIVE NEGATIVE Urine total bilirubin detection by test strip NEGA TIVE NEGATIVE Urine urobilinogen measurement by automated test strip (mass/volume) 1 mg/dL NORMAL Urine leukocyte esterase detection by dipstick 2+ NEGATIVE Automated urine sediment erythrocyte cou nt by microscopy (number/high power field) [HPF] NRG Automated urine sediment leukocyte count by microscopy (number/high power field) [HPF] NRG Bacteria detection in urine sediment by light microsco py MODERATE NRG Squamous epithelial cells detection in u rine sediment by light microscopy 5-10 NRG Crystals detection in urine sediment by light microsco py NONE NRG Casts detection in urine sediment [...] PT panel in platelet poor plasma by coag ulation assay - 08/05/17 10:48 Prothrombin time (PT) in platelet poor plasma by coagu lation assay 29.8 s 12.2-14.7 INR in platelet poor plasma or blood by coagulation as say 2.9 0.8-1.4 Automated blood complete blood count (he mogram) panel - 08/19/17 08:58 Blood leukocytes automated count (number/volume) 9.3 10*3/uL 4.3-11.0 Blood erythrocytes automated count (number/volume) 4.57 10*6/uL 4.35-5.85 Venous blood hemoglobin measurement (mass/volume) 13.4 g/dL 11.5-16.0 Blood hematocrit (volume fraction) 43 % 35-52 Automated erythrocyte mean corpuscular volume 94 [ foz_us] 80-99 Automated erythrocyte mean corpuscular h emoglobin (mass per erythrocyte) 29 pg 25-34 Automated erythrocyte mean corpuscular h emoglobin concentration measurement (mass/volume) 31 g/dL 32-36 Automated erythrocyte distribution width ratio 15. 3 % 10.0- 14.5 Automated blood platelet count (count/volume) 231 10*3/uL 130-400 Automated blood platelet mean volume measurement 11.0 [foz_us] 7.4-10.4 Complete urinalysis with reflex to cultu re - 08/19/17 08:58 Urine color determination YELLOW NRG Urine clarity determination CLEAR NR G Urine pH measurement by test strip 5 5-9 Specific gravity of urine by test strip 1.025 1.016-1.022 Urine protein assay by test strip, semi-quantitative 1+ NEGATIVE Urine glucose detection by automated test strip NE GATIVE NEGATIVE Erythrocytes detection in urine sediment by light micr oscopy 1+ NEGATIVE Urine ketones detection by automated test strip NE GATIVE NEGATIVE Urine nitrite detection by test strip NEGATIVE NEGATIVE Urine total bilirubin detection by test strip NEGA TIVE NEGATIVE Urine urobilinogen measurement by automated test strip (mass/volume) NORMAL NORMAL Urine leukocyte esterase detection by dipstick 2+ NEGATIVE Automated urine sediment erythrocyte cou nt by microscopy (number/high power field) RARE NRG Automated urine sediment leukocyte count by microscopy (number/high power field) [HPF] NRG Bacteria detection in urine sediment by light microsco py MODERATE NRG Squamous epithelial cells detection in u rine sediment by light microscopy 5-10 NRG Crystals detection in urine sediment by light microsco py NONE NRG Casts detection in urine sediment by light microscopy NONE NRG Mucus detection in urine sediment by light microscopy NEGATIVE NRG Complete urinalysis with reflex to culture YES NRG PT panel in platelet poor plasma by coag ulation assay - 08/19/17 08:58 Prothrombin time (PT) in platelet poor plasma by coagu lation assay 16.0 s 12.2-14.7 INR in platelet poor plasma or blood by coagulation as say 1.3 0.8-1.4 Activated partial thromboplastin time (a PTT) in platelet poor plasma bycoagulation assay - 08/19/17 08:58 Activated partial thromboplastin time (a PTT) in platelet poor plasma bycoagulation assay 29 s 24-35 Comprehensive metabolic panel - 08/19/17 08:58 Serum or plasma sodium measurement (moles/volume) 140 mmol/L 135-145 Serum or plasma potassium measurement (moles/volume) 3.9 mmol/L 3.6-5.0 Serum or plasma chloride measurement (moles/volume) 104 mmol/L 98-107 Carbon dioxide 24 mmol/L 21-32 Serum or plasma anion gap determination (moles/volume) 12 mmol/L 5-14 Serum or plasma urea nitrogen measurement (mass/volume ) 12 mg/dL 7-18 Serum or plasma creatinine measurement (mass/volume) 0.86 mg/dL 0.60-1.30 Serum or plasma urea nitrogen/creatinine mass ratio 14 NRG Serum or plasma creatinine measurement w ith calculation of estimated glomerular filtration rate > NRG Serum or plasma glucose measurement (mass/volume) 121 mg/dL 70-105 Serum or plasma calcium measurement (mass/volume) 9.5 mg/dL 8.5-10.1 Serum or plasma total bilirubin measurement (mass/volu me) 0.6 mg/dL 0.1-1.0 Serum or plasma alkaline phosphatase kit surement (enzymatic activity/volume) 99 U/L 40-136 Serum or plasma aspartate aminotransfera se measurement (enzymatic activity/volume) 21 U/L 5-34 Serum [...] Serum or plasma cholesterol in HDL measurement (mass/v olume) 38 mg/dL 40-60 Cholesterol in LDL [mass/volume] in serum or plasma by direct assay 176 mg/dL 1-129 Serum or plasma cholesterol in VLDL measurement (mass/ volume) 43 mg/dL 5-40 Bacterial urine culture - 08/19/17 08:58 URINE CULTURE RESULTS <10,000/ML NRG Methicillin resistant Staphylococcus aur eus (MRSA) screening culture - 08/19/17 08:58 Methicillin resistant Staphylococcus aureus (MRSA) scr eening culture NEG NRG Complete blood count (CBC) with automate d white blood cell (WBC) differential - 08/20/17 04:25 Blood leukocytes automated count (number/volume) 9.4 10*3/uL 4.3-11.0 Blood erythrocytes automated count (number/volume) 3.76 10*6/uL 4.35-5.85 Venous blood hemoglobin measurement (mass/volume) 11.3 g/dL 11.5-16.0 Blood hematocrit (volume fraction) 36 % 35-52 Automated erythrocyte mean corpuscular volume 96 [ foz_us] 80-99 Automated erythrocyte mean corpuscular h emoglobin (mass per erythrocyte) 30 pg 25-34 Automated erythrocyte mean corpuscular h emoglobin concentration measurement (mass/volume) 32 g/dL 32-36 Automated erythrocyte distribution width ratio 15. 3 % 10.0- 14.5 Automated blood platelet count [...] 10*3 1.0-4.0 Blood monocytes automated count (number/volume) 0. 9 10*3 0.0-1.0 Automated eosinophil count 0.2 10*3/uL 0 .0-0.3 Automated blood basophil count (count/volume) 0.0 10*3/uL 0.0-0.1 Whole blood basic metabolic panel - 08/09 06/28 04:25 Serum or plasma sodium measurement (moles/volume) 138 mmol/L 135-145 Serum or plasma potassium measurement (moles/volume) 3.9 mmol/L 3.6-5.0 Serum or plasma chloride measurement (moles/volume) 101 mmol/L 98-107 Carbon dioxide 27 mmol/L 21-32 Serum or plasma anion gap determination (moles/volume) 10 mmol/L 5-14 Serum or plasma urea nitrogen measurement (mass/volume ) 12 mg/dL 7-18 Serum or plasma creatinine measurement (mass/volume) 0.82 mg/dL 0.60-1.30 Serum or plasma urea nitrogen/creatinine mass ratio 15 NRG Serum or plasma creatinine measurement w ith calculation of estimated glomerular filtration rate > NRG Serum or plasma glucose measurement (mass/volume) 116 mg/dL 70-105 Serum or plasma calcium measurement (mass/volume) 8.6 mg/dL 8.5-10.1 Serum or plasma phosphate measurement (m ass/volume) - 08/20/17 04:25 Serum or plasma phosphate measurement (mass/volume) 4.1 mg/dL 2.3-4.7 Magnesium - 08/20/17 04:25 Magnesium 2.0 mg/dL 1.8-2.4 Complete blood count (CBC) with automate d white blood cell (WBC) differential - 08/20/17 12:45 Blood leukocytes automated count (number/volume) 11.8 10*3/uL 4.3-11.0 Blood erythrocytes automated count (number/volume) 4.11 10*6/uL 4.35-5.85 Venous blood hemoglobin measurement (mass/volume) 12.5 g/dL 11.5-16.0 Blood hematocrit (volume fraction) 39 % 35-52 Automated erythrocyte mean corpuscular volume 95 [ foz_us] 80-99 Automated erythrocyte mean corpuscular h emoglobin (mass per erythrocyte) 30 pg 25-34 Automated erythrocyte mean corpuscular h emoglobin concentration measurement (mass/volume) 32 g/dL 32-36 Automated erythrocyte distribution width ratio 15. 3 % 10.0- 14.5 Automated blood platelet count [...] 10*3 1.0-4.0 Blood monocytes automated count (number/volume) 1. 0 10*3 0.0-1.0 Automated eosinophil count 0.2 10*3/uL 0 .0-0.3 Automated blood basophil count (count/volume) 0.0 10*3/uL 0.0-0.1 Comprehensive metabolic panel - 08/20/17 12:45 Serum or plasma sodium measurement (moles/volume) 136 mmol/L 135-145 Serum or plasma potassium measurement (moles/volume) 4.0 mmol/L 3.6-5.0 Serum or plasma chloride measurement (moles/volume) 101 mmol/L 98-107 Carbon dioxide 24 mmol/L 21-32 Serum or plasma anion gap determination (moles/volume) 11 mmol/L 5-14 Serum or plasma urea nitrogen measurement (mass/volume ) 10 mg/dL 7-18 Serum or plasma creatinine measurement (mass/volume) 0.79 mg/dL 0.60-1.30 Serum or plasma urea nitrogen/creatinine mass ratio 13 NRG Serum or plasma creatinine measurement w ith calculation of estimated glomerular filtration rate > NRG Serum or plasma glucose measurement (mass/volume) 191 mg/dL 70-105 Serum or plasma calcium measurement (mass/volume) 9.0 mg/dL 8.5-10.1 Serum or plasma total bilirubin measurement (mass/volu me) 0.6 mg/dL 0.1-1.0 Serum or plasma alkaline phosphatase kit surement (enzymatic activity/volume) 87 U/L 40-136 Serum or plasma aspartate aminotransfera se measurement (enzymatic activity/volume) 21 U/L 5-34 Serum or plasma alanine aminotransferase measurement (enzymatic activity/volume) 20 U/L 0-55 Serum or plasma protein measurement (mass/volume) 7.7 g/dL 6.4-8.2 Serum or plasma albumin measurement (mass/volume) 3.9 g/dL 3.2-4.5 Magnesium - 08/20/17 12:45 Magnesium 1.9 mg/dL 1.8-2.4 Serum or plasma troponin i.cardiac measu rement (mass/volume) - 08/20/17 12:45 Serum or plasma troponin i.cardiac measurement (mass/v olume) < ng/mL <0.30 Myoglobin, serum - 08/20/17 12:45 Myoglobin, serum 52.4 ng/mL 10.0-92.0 Lipase - 08/20/17 12:45 Lipase 47 U/L 8-78 Complete blood count (CBC) with automate d white blood cell (WBC) differential - 09/04/17 22:58 Blood leukocytes automated count (number/volume) 10.2 10*3/uL 4.3-11.0 Blood erythrocytes automated count (number/volume) 4.34 10*6/uL 4.35-5.85 Venous blood hemoglobin measurement (mass/volume) 12.9 g/dL 11.5-16.0 Blood hematocrit (volume fraction) 41 % 35-52 Automated erythrocyte mean corpuscular volume 94 [ foz_us] 80-99 Automated erythrocyte mean corpuscular h emoglobin (mass per erythrocyte) 30 pg 25-34 Automated erythrocyte mean corpuscular h emoglobin concentration measurement (mass/volume) 32 g/dL 32-36 Automated erythrocyte distribution width ratio 15. 2 % 10.0- 14.5 Automated blood platelet count [...] 10*3 1.0-4.0 Blood monocytes automated count (number/volume) 0. 8 10*3 0.0-1.0 Automated eosinophil count 0.3 10*3/uL 0 .0-0.3 Automated blood basophil count (count/volume) 0.0 10*3/uL 0.0-0.1 PT panel in platelet poor plasma by coag ulation assay - 09/04/17 22:58 Prothrombin time (PT) in platelet poor plasma by coagu lation assay 29.9 s 12.2-14.7 INR in platelet poor plasma or blood by coagulation as say 2.9 0.8-1.4 Activated partial thromboplastin time (a PTT) in platelet poor plasma bycoagulation assay - 09/04/17 22:58 Activated partial thromboplastin time (a PTT) in platelet poor plasma bycoagulation assay 46 s 24-35 Comprehensive metabolic panel - 09/04/17 22:58 Serum or plasma sodium measurement (moles/volume) 138 mmol/L 135-145 Serum or plasma potassium measurement (moles/volume) 4.4 mmol/L 3.6-5.0 Serum or plasma chloride measurement (moles/volume) 103 mmol/L 98-107 Carbon dioxide 25 mmol/L 21-32 Serum or plasma anion gap determination (moles/volume) 10 mmol/L 5-14 Serum or plasma urea nitrogen measurement (mass/volume ) 14 mg/dL 7-18 Serum or plasma creatinine measurement (mass/volume) 0.92 mg/dL 0.60-1.30 Serum or plasma urea nitrogen/creatinine mass ratio 15 NRG Serum or plasma creatinine measurement w ith calculation of estimated glomerular filtration rate > NRG Serum or plasma glucose measurement (mass/volume) 140 mg/dL 70-105 Serum or plasma calcium measurement (mass/volume) 9.5 mg/dL 8.5-10.1 Serum or plasma total bilirubin measurement (mass/volu me) 0.3 mg/dL 0.1-1.0 Serum or plasma alkaline phosphatase kit surement (enzymatic activity/volume) 100 U/L 40-136 Serum or plasma aspartate aminotransfera se measurement (enzymatic activity/volume) 22 U/L 5-34 Serum or plasma alanine aminotransferase measurement (enzymatic activity/volume) 20 U/L 0-55 Serum or plasma protein measurement (mass/volume) 8.1 g/dL 6.4-8.2 Serum or plasma albumin measurement (mass/volume) 3.9 g/dL 3.2-4.5 Magnesium - 09/04/17 22:58 Magnesium 2.3 mg/dL 1.8-2.4 Serum or plasma troponin i.cardiac measu rement (mass/volume) - 09/04/17 22:58 Serum or plasma troponin i.cardiac measurement (mass/v olume) < ng/mL <0.30 Myoglobin, serum - 09/04/17 22:58 Myoglobin, serum 39.3 ng/mL 10.0-92.0 Complete urinalysis with reflex to cultu re - 09/04/17 23:34 Urine color determination YELLOW NRG Urine clarity determination VERY CLOUDY NRG Urine pH measurement by test strip 5 5-9 Specific gravity of urine by test strip 1.020 1.016-1.022 Urine protein assay by test strip, semi-quantitative 2+ NEGATIVE Urine glucose detection by automated test strip NE GATIVE NEGATIVE Erythrocytes detection in urine sediment by light micr oscopy 5+ NEGATIVE Urine ketones detection by automated test strip NE GATIVE NEGATIVE Urine nitrite detection by test strip NEGATIVE NEGATIVE Urine total bilirubin detection by test strip NEGA TIVE NEGATIVE Urine urobilinogen measurement by automated test strip (mass/volume) NORMAL NORMAL Urine leukocyte esterase detection by dipstick 3+ NEGATIVE Automated urine sediment erythrocyte cou nt by microscopy (number/high power field) [HPF] NRG Automated urine sediment leukocyte count by microscopy (number/high power field) TNTC NRG Bacteria detection in urine sediment by light microsco py FEW NRG Squamous epithelial cells detection in u rine sediment by light microscopy 2-5 NRG Crystals detection in urine sediment by light microsco py NONE NRG Casts detection in urine sediment by light microscopy NONE NRG Mucus detection in urine sediment by light microscopy NEGATIVE NRG Complete urinalysis with reflex to culture YES NRG Bacterial urine culture - 09/04/17 23:34 Bacterial urine culture [id number] NRG COLONY COUNT >100,000/ML NRG FTX;REPORTABLE SENSITIVITY REPORTED 09/06/17 7:55 NRG FREE TEXT ENTRY 2 PLUS, NRG FREE TEXT ENTRY 3 MIXED GRAM POSITIVES <10,000/ML NRG Bacterial susceptibility panel - 8 23:34 Gentamicin susceptibility test by minimum inhibitory c oncentration <= NRG Trimethoprim/sulfamethoxazole susceptibi lity test by minimum inhibitoryconcentration S NRG Ampicillin susceptibility test by minimum inhibitory c oncentration <= NRG Tobramycin susceptibility test by minimum inhibitory c oncentration <= NRG Cefazolin susceptibility test by minimum inhibitory co ncentration <= NRG Ceftriaxone susceptibility test by minimum inhibitory concentration <= NRG Ampicillin/sulbactam susceptibility test by minimum inhibitory concentration S NRG Piperacillin/tazobactam susceptibility t est by minimum inhibitory concentration S NRG Ciprofloxacin susceptibility test by minimum inhibitor y concentration <= NRG Meropenem susceptibility test by minimum inhibitory co ncentration <= NRG Nitrofurantoin susceptibility test by mi nimum inhibitory concentration <= NRG Aztreonam susceptibility test by minimum inhibitory co ncentration <= NRG Extended spectrum beta lactamase (ESBL) producing bacteria susceptibility test by minimum inhibitory concentration - NRG Serum or plasma troponin i.cardiac measu rement (mass/volume) - 09/05/17 04:27 Serum or plasma troponin i.cardiac measurement (mass/v olume) < ng/mL <0.30 Myoglobin, serum - 09/05/17 04:27 Myoglobin, serum 34.4 ng/mL 10.0-92.0 Lipid 1996 panel - 09/05/17 04:27 Serum or plasma triglyceride measurement (mass/volume) 121 mg/dL <150 Serum or plasma cholesterol measurement (mass/volume) 152 mg/dL < 200 Serum or plasma cholesterol in HDL measurement (mass/v olume) 35 mg/dL 40-60 Cholesterol in LDL [mass/volume] in serum or plasma by direct assay 98 mg/dL 1-129 Serum or plasma cholesterol in VLDL measurement (mass/ volume) 24 mg/dL 5-40 Serum or plasma lithium measurement (mol es/volume) - 09/05/17 07:17 BNP level < pg/mL <100.0 CBC - 09/10/17 13:35 WHITE BLOOD CELL COUNT 10.2 Thousand/uL 3.8-10.8 RED BLOOD CELL COUNT 4.73 Million/uL 3.8 0-5.10 HEMOGLOBIN 13.7 g/dL 11.7-15.5 HEMATOCRIT 42.6 % 35.0-45.0 MCV 90.1 fL 80.0-100.0 MCH 29.0 pg 27.0-33.0 MCHC 32.2 g/dL 32.0-36.0 RDW 13.9 % 11.0-15.0 PLATELET COUNT 224 Thousand/uL 140-400 MPV 10.3 fL 7.5-12.5 ABSOLUTE NEUTROPHILS 7681 cells/uL 1500- 7800 ABSOLUTE LYMPHOCYTES 1632 cells/uL 850-3 900 ABSOLUTE MONOCYTES 704 cells/uL 200-950 ABSOLUTE EOSINOPHILS 163 cells/uL 15-500 ABSOLUTE BASOPHILS 20 cells/uL 0-200 NEUTROPHILS 75.3 % NRG LYMPHOCYTES 16.0 % NRG MONOCYTES 6.9 % NRG EOSINOPHILS 1.6 % NRG BASOPHILS 0.2 % NRG TSH - 09/10/17 13:35 TSH 0.74 mIU/L 0.40-4.50 CULTURE, URINE - 01/02/18 02:22 CULTURE, URINE, ROUTINE SEE NOTE NRG Complete blood count (CBC) with automate d white blood cell (WBC) differential - 07/09/18 15:03 Blood leukocytes automated count (number/volume) 7.8 10*3/uL 4.3-11.0 Blood erythrocytes automated count (number/volume) 4.42 10*6/uL 4.35-5.85 Venous blood hemoglobin measurement (mass/volume) 12.9 g/dL 11.5-16.0 Blood hematocrit (volume fraction) 41 % 35-52 Automated erythrocyte mean corpuscular volume 93 [ foz_us] 80-99 Automated erythrocyte mean corpuscular h emoglobin (mass per erythrocyte) 29 pg 25-34 Automated erythrocyte mean corpuscular h emoglobin concentration measurement (mass/volume) 31 g/dL 32-36 Automated erythrocyte distribution width ratio 15. 5 % 10.0- 14.5 Automated blood platelet count [...] 10*3 1.0-4.0 Blood monocytes automated count (number/volume) 0. 5 10*3 0.0-1.0 Automated eosinophil count 0.1 10*3/uL 0 .0-0.3 Automated blood basophil count (count/volume) 0.0 10*3/uL 0.0-0.1 Fibrin D-dimer FEU measurement in platel et poor plasma (mass/volume) - 07/09/18 15:03 Fibrin [...] 5-14 Serum or plasma urea nitrogen measurement (mass/volume ) 11 mg/dL 7-18 Serum or plasma creatinine measurement (mass/volume) 0.82 mg/dL 0.60-1.30 Serum or plasma urea nitrogen/creatinine mass ratio 13 NRG Serum or plasma creatinine measurement w ith calculation of estimated glomerular filtration rate > NRG Serum or plasma glucose measurement (mass/volume) 210 mg/dL 70-105 Serum or plasma calcium measurement (mass/volume) 8.8 mg/dL 8.5-10.1 Serum or plasma total bilirubin measurement (mass/volu me) 0.3 mg/dL 0.1-1.0 Serum or plasma alkaline phosphatase kit surement (enzymatic activity/volume) 100 U/L 40-136 Serum or plasma aspartate aminotransfera se measurement (enzymatic activity/volume) 22 U/L 5-34 Serum or plasma alanine aminotransferase measurement (enzymatic activity/volume) 14 U/L 0-55 Serum or plasma protein measurement (mass/volume) 7.3 g/dL 6.4-8.2 Serum or plasma albumin measurement (mass/volume) 3.9 g/dL 3.2-4.5 CALCIUM CORRECTED 8.9 mg/dL 8.5-10.1 Serum or plasma troponin i.cardiac measu rement (mass/volume) - 07/09/18 15:03 Serum or plasma troponin i.cardiac measurement (mass/v olume) < ng/mL <0.028 Serum or plasma lithium measurement (mol es/volume) - 07/09/18 15:03 BNP level 18.9 pg/mL <100.0 Complete urinalysis with reflex to cultu re - 07/09/18 18:00 Urine color determination YELLOW NRG Urine clarity determination CLEAR NR G Urine pH measurement by test strip 6 5-9 Specific gravity of urine by test strip 1.010 1.016-1.022 Urine protein assay by test strip, semi-quantitative NEGATIVE NEGATIVE Urine glucose detection by automated test strip NE GATIVE NEGATIVE Erythrocytes detection in urine sediment by light micr oscopy 1+ NEGATIVE Urine ketones detection by automated test strip NE GATIVE NEGATIVE Urine nitrite detection by test strip NEGATIVE NEGATIVE Urine total bilirubin detection by test strip NEGA TIVE NEGATIVE Urine urobilinogen measurement by automated test strip (mass/volume) NORMAL NORMAL Urine leukocyte esterase detection by dipstick 1+ NEGATIVE Automated urine sediment erythrocyte cou nt by microscopy (number/high power field) RARE NRG Automated urine sediment leukocyte count by microscopy (number/high power field) RARE NRG Bacteria detection in urine sediment by light microsco py TRACE NRG Squamous epithelial cells detection in u rine sediment by light microscopy 0-2 NRG Crystals detection in urine sediment by light microsco py NONE NRG Casts detection in urine sediment by light microscopy NONE NRG Mucus detection in urine sediment by light microscopy NEGATIVE NRG Complete urinalysis with reflex to culture NO NRG Complete blood count (CBC) with automate d white blood cell (WBC) differential - 10/05/18 14:50 Blood leukocytes automated count (number/volume) 7.9 10*3/uL 4.3-11.0 Blood erythrocytes automated count (number/volume) 4.70 10*6/uL 4.35-5.85 Venous blood hemoglobin measurement (mass/volume) 13.6 g/dL 11.5-16.0 Blood hematocrit (volume fraction) 44 % 35-52 Automated erythrocyte mean corpuscular volume 93 [ foz_us] 80-99 Automated erythrocyte mean corpuscular h emoglobin (mass per erythrocyte) 29 pg 25-34 Automated erythrocyte mean corpuscular h emoglobin concentration measurement (mass/volume) 31 g/dL 32-36 Automated erythrocyte distribution width ratio 14. 8 % 10.0- 14.5 Automated blood platelet count [...] 10*3 1.0-4.0 Blood monocytes automated count (number/volume) 0. 3 10*3 0.0-1.0 Automated eosinophil count 0.1 10*3/uL 0 .0-0.3 Automated blood basophil count (count/volume) 0.0 10*3/uL 0.0-0.1 Comprehensive metabolic panel - 10/05/18 14:50 Serum or plasma sodium measurement (moles/volume) 141 mmol/L 135-145 Serum or plasma potassium measurement (moles/volume) 3.7 mmol/L 3.6-5.0 Serum or plasma chloride measurement (moles/volume) 99 mmol/L 98-107 Carbon dioxide 26 mmol/L 21-32 Serum or plasma anion gap determination (moles/volume) 16 mmol/L 5-14 Serum or plasma urea nitrogen measurement (mass/volume ) 9 mg/dL 7-18 Serum or plasma creatinine measurement (mass/volume) 0.83 mg/dL 0.60-1.30 Serum or plasma urea nitrogen/creatinine mass ratio 11 NRG Serum or plasma creatinine measurement w ith calculation of estimated glomerular filtration rate > NRG Serum or plasma glucose measurement (mass/volume) 265 mg/dL 70-105 Serum or plasma calcium measurement (mass/volume) 8.7 mg/dL 8.5-10.1 Serum or plasma total bilirubin measurement (mass/volu me) 0.4 mg/dL 0.1-1.0 Serum or plasma alkaline phosphatase kit surement (enzymatic activity/volume) 117 U/L 40-136 Serum or plasma aspartate aminotransfera se measurement (enzymatic activity/volume) 19 U/L 5-34 Serum [...] 51.4 pg/mL <75.0 Activated partial thromboplastin time (a PTT) in platelet poor plasma bycoagulation assay - 10/05/18 14:50 Activated partial thromboplastin time (a PTT) in platelet poor plasma bycoagulation assay 32 s 24-35 Fibrin D-dimer FEU measurement in platel et poor plasma (mass/volume) - 10/05/18 14:50 Fibrin D-dimer FEU measurement in platelet poor plasma (mass/volume) 0.39 ug/mL 0.00-0.49 TROPONIN T - 10/05/18 16:52 TROPONIN T 8 % <=10 PT panel in platelet poor plasma by coag ulation assay - 10/05/18 16:52 Prothrombin time (PT) in platelet poor plasma by coagu lation assay 19.6 s 12.2-14.7 INR in platelet poor plasma or blood by coagulation as say 1.6 0.8-1.4 Complete urinalysis with reflex to cultu re - 11/05/18 18:13 Urine color determination IFEOMA NRG Urine clarity determination SLIGHTLY CLOUDY NRG Urine pH measurement by test strip 5 5-9 Specific gravity of urine by test strip 1.020 1.016-1.022 Urine protein assay by test strip, semi-quantitative 1+ NEGATIVE Urine glucose detection by automated test strip NE GATIVE NEGATIVE Erythrocytes detection in urine sediment by light micr oscopy 3+ NEGATIVE Urine ketones detection by automated test strip 1+ NEGATIVE Urine nitrite detection by test strip NEGATIVE NEGATIVE Urine total bilirubin detection by test strip NEGA TIVE NEGATIVE Urine urobilinogen measurement by automated test strip (mass/volume) 1 mg/dL NORMAL Urine leukocyte esterase detection by dipstick 3+ NEGATIVE Automated urine sediment erythrocyte cou nt by microscopy (number/high power field) RARE NRG Automated urine sediment leukocyte count by microscopy (number/high power field) [HPF] NRG Bacteria detection in urine sediment by light microsco py MODERATE NRG Squamous epithelial cells detection in u rine sediment by light microscopy 10-25 NRG Crystals detection in urine sediment by light microsco py NONE NRG Casts detection in urine sediment by light microscopy NONE NRG Mucus detection in urine sediment by light microscopy SMALL NRG Complete urinalysis with reflex to culture YES NRG Bacterial urine culture - 11/05/18 18:13 Bacterial urine culture 3 OR MORE NRG COLONY COUNT >100,000/ML NRG FTX;REPORTABLE GRAM POSITIVE ISOLATES; SUGGESTING NRG FREE TEXT ENTRY 2 PROBABLE COLLECTION CONTAMINATIO N WITH NRG FREE TEXT ENTRY 3 SKIN KWAME. NO SUSCEPTIBILITY PE RFORMED. NRG Complete blood count (CBC) with automate d white blood cell (WBC) differential - 11/05/18 18:18 Blood leukocytes automated count (number/volume) 8.9 10*3/uL 4.3-11.0 Blood erythrocytes automated count (number/volume) 4.84 10*6/uL 4.35-5.85 Venous blood hemoglobin measurement (mass/volume) 13.9 g/dL 11.5-16.0 Blood hematocrit (volume fraction) 44 % 35-52 Automated erythrocyte mean corpuscular volume 91 [ foz_us] 80-99 Automated erythrocyte mean corpuscular h emoglobin (mass per erythrocyte) 29 pg 25-34 Automated erythrocyte mean corpuscular h emoglobin concentration measurement (mass/volume) 32 g/dL 32-36 Automated erythrocyte distribution width ratio 15. 2 % 10.0- 14.5 Automated blood platelet count [...] 10*3 1.0-4.0 Blood monocytes automated count (number/volume) 0. 6 10*3 0.0-1.0 Automated eosinophil count 0.1 10*3/uL 0 .0-0.3 Automated blood basophil count (count/volume) 0.0 10*3/uL 0.0-0.1 PT panel in platelet poor plasma by coag ulation assay - 11/05/18 18:18 Prothrombin time (PT) in platelet poor plasma by coagu lation assay 31.1 s 12.2-14.7 INR in platelet poor plasma or blood by coagulation as say 2.8 0.8-1.4 Activated partial thromboplastin time (a PTT) in platelet poor plasma bycoagulation assay - 11/05/18 18:18 Activated partial thromboplastin time (a PTT) in platelet poor plasma bycoagulation assay 50 s 24-35 Comprehensive metabolic panel - 11/05/18 18:18 Serum or plasma sodium measurement (moles/volume) 136 mmol/L 135-145 Serum or plasma potassium measurement (moles/volume) 4.2 mmol/L 3.6-5.0 Serum or plasma chloride measurement (moles/volume) 101 mmol/L 98-107 Carbon dioxide 22 mmol/L 21-32 Serum or plasma anion gap determination (moles/volume) 13 mmol/L 5-14 Serum or plasma urea nitrogen measurement (mass/volume ) 11 mg/dL 7-18 Serum or plasma creatinine measurement (mass/volume) 0.95 mg/dL 0.60-1.30 Serum or plasma urea nitrogen/creatinine mass ratio 12 NRG Serum or plasma creatinine measurement w ith calculation of estimated glomerular filtration rate 60 NRG Serum or plasma glucose measurement (mass/volume) 107 mg/dL 70-105 Serum or plasma calcium measurement (mass/volume) 9.1 mg/dL 8.5-10.1 Serum or plasma total bilirubin measurement (mass/volu me) 0.4 mg/dL 0.1-1.0 Serum or plasma alkaline phosphatase kit surement (enzymatic activity/volume) 120 U/L 40-136 Serum or plasma aspartate aminotransfera se measurement (enzymatic activity/volume) 22 U/L 5-34 Serum or plasma alanine aminotransferase measurement (enzymatic activity/volume) 20 U/L 0-55 Serum or plasma protein measurement (mass/volume) 8.2 g/dL 6.4-8.2 Serum or plasma albumin measurement (mass/volume) 4.3 g/dL 3.2-4.5 CALCIUM CORRECTED 8.9 mg/dL 8.5-10.1 Magnesium - 11/05/18 18:18 Magnesium 2.2 mg/dL 1.8-2.4 Serum or plasma amylase measurement (enz ymatic activity/volume) - 11/05/18 18:18 Serum or plasma amylase measurement (enzymatic activit y/volume) 78 U/L 25-125 Lipase - 11/05/18 18:18 Lipase 63 U/L 8-78 Blood type T Indirect antibody screen pa nacho - 11/05/18 18:18 WRISTBAND NUMBER [id number] NRG ABO+Rh group AP NRG Blood group antibody screen NEGATIVE NR G Complete urinalysis with reflex to cultu re - 11/13/18 20:20 Urine color determination YELLOW NRG Urine clarity determination SLIGHTLY CLOUDY NRG Urine pH measurement by test strip 5 5-9 Specific gravity of urine by test strip 1.025 1.016-1.022 Urine protein assay by test strip, semi-quantitative 1+ NEGATIVE Urine glucose detection by automated test strip NE GATIVE NEGATIVE Erythrocytes detection in urine sediment by light micr oscopy 2+ NEGATIVE Urine ketones detection by automated test strip 1+ NEGATIVE Urine nitrite detection by test strip NEGATIVE NEGATIVE Urine total bilirubin detection by test strip NEGA TIVE NEGATIVE Urine urobilinogen measurement by automated test strip (mass/volume) 4 mg/dL NORMAL Urine leukocyte esterase detection by dipstick 1+ NEGATIVE Automated urine sediment erythrocyte cou nt by microscopy (number/high power field) NONE NRG Automated urine sediment leukocyte count by microscopy (number/high power field) [HPF] NRG Bacteria detection in urine sediment by light microsco py FEW NRG Squamous epithelial cells detection in u rine sediment by light microscopy 25-50 NRG Crystals detection in urine sediment by light microsco py NONE NRG Casts detection in urine sediment by light microscopy PRESENT NRG Mucus detection in urine sediment by light microscopy NEGATIVE NRG Complete urinalysis with reflex to culture YES NRG Hyaline casts detection in urine sediment by light josé antonio roscopy RARE NRG Bacterial urine culture - 11/13/18 20:20 Bacterial urine culture 3 OR MORE NRG COLONY COUNT >100,000/ML NRG FTX;REPORTABLE (GRAM POSITIVE) SUGGESTING PROBABLE NRG FREE TEXT ENTRY 2 COLLECTION CONTAMINATION WITH SK IN KWAME NRG FREE TEXT ENTRY 3 NO SUSCEPTIBILITY PERFORMED NRG Bacteria identification in genital speci men by aerobe culture - 11/13/18 21:10 FREE TEXT EXTERNAL METHICILLIN-SENSITIVE , SUSCEPT IBILITY NRG QUANTITY OF GROWTH Moderate Growth NRG Bacteria identification in genital specimen by aerobe culture [id number] NRG FREE TEXT EXTERNAL 2 REPORTED 11/18/18 13:45 NRG FREE TEXT EXTERNAL 3 ID REPORTED 11/17/18 10:05 NRG Dirithromycin susceptibility test by dis k diffusion - 11/13/18 21:10 Oxacillin susceptibility test by minimum inhibitory co ncentration 0.5 NRG Clindamycin susceptibility test by minimum inhibitory concentration <= NRG Erythromycin susceptibility test by minimum inhibitory concentration <= NRG Trimethoprim/sulfamethoxazole susceptibi lity test by minimum inhibitoryconcentration <= NRG Vancomycin susceptibility test by minimum inhibitory c oncentration 1 NRG Levofloxacin susceptibility test by minimum inhibitory concentration <= NRG Rifampin susceptibility test by minimum inhibitory con centration <= NRG Cefazolin susceptibility test by minimum inhibitory co ncentration <= NRG Linezolid susceptibility test by minimum inhibitory co ncentration 2 NRG Penicillin G susceptibility test by minimum inhibitory concentration > NRG Moxifloxacin susceptibility test by minimum inhibitory concentration <= NRG Minocycline susc JOSÉ ANTONIO <= NRG Neisseria gonorrhoeae DNA detection by p robe and signal amplification method - 11/13/18 21:10 Gonorrhea amp DNA-urine Not Detected No t Detected Chlamydia trachomatis DNA detection by p robe and signal amplification method - 11/13/18 21:10 Chlamydia trachomatis DNA detection by p robe and target amplification method Not Detected Not Detected Microscopic examination by wet preparati on - 11/13/18 21:10 WET PREP RESULTS 11/13 21:23 BY TL NRG CULTURE, URINE - 12/01/18 13:56 CULTURE, URINE, ROUTINE SEE NOTE NRG LIPID PANEL - 01/26/19 08:44 CHOLESTEROL, TOTAL 256 mg/dL <200 HDL CHOLESTEROL 43 mg/dL >50 TRIGLYCERIDES 234 mg/dL <150 LDL-CHOLESTEROL 173 mg/dL (calc) NRG CHOL/HDLC RATIO 6.0 (calc) <5.0 NON HDL CHOLESTEROL 213 mg/dL (calc) <13 0 CMP - 01/26/19 08:44 GLUCOSE 123 mg/dL 65-99 UREA NITROGEN (BUN) 11 mg/dL 7-25 CREATININE 0.79 mg/dL 0.50-0.99 eGFR NON-AFR. [place] 81 mL/min/1.73m2 > OR = 60 eGFR 94 mL/min/1.73m2 > OR = 60 BUN/CREATININE RATIO NOT APPLICABLE (calc) 6-22 SODIUM 139 mmol/L 135-146 POTASSIUM 4.2 mmol/L 3.5-5.3 CHLORIDE 103 mmol/L 98-110 CARBON DIOXIDE 25 mmol/L 20-32 CALCIUM 9.4 mg/dL 8.6-10.4 PROTEIN, TOTAL 7.2 g/dL 6.1-8.1 ALBUMIN 4.0 g/dL 3.6-5.1 GLOBULIN 3.2 g/dL (calc) 1.9-3.7 ALBUMIN/GLOBULIN RATIO 1.3 (calc) 1.0-2. 5 BILIRUBIN, TOTAL 0.3 mg/dL 0.2-1.2 ALKALINE PHOSPHATASE 95 U/L 33-130 AST 22 U/L 10-35 ALT 18 U/L 6-29 Complete blood count (CBC) with automate d white blood cell (WBC) differential - 01/31/19 22:17 Blood leukocytes automated count (number/volume) 9.8 10*3/uL 4.3-11.0 Blood erythrocytes automated count (number/volume) 4.58 10*6/uL 4.35-5.85 Venous blood hemoglobin measurement (mass/volume) 13.4 g/dL 11.5-16.0 Blood hematocrit (volume fraction) 42 % 35-52 Automated erythrocyte mean corpuscular volume 92 [ foz_us] 80-99 Automated erythrocyte mean corpuscular h emoglobin (mass per erythrocyte) 29 pg 25-34 Automated erythrocyte mean corpuscular h emoglobin concentration measurement (mass/volume) 32 g/dL 32-36 Automated erythrocyte distribution width ratio 15. 5 % 10.0- 14.5 Automated blood platelet count (count/volume) 244 10*3/uL 130-400 Automated blood platelet mean volume measurement 10.5 [foz_us] 7.4-10.4 Automated blood neutrophils/100 leukocytes 68 % 42-75 Automated blood lymphocytes/100 leukocytes 24 % 12-44 Blood monocytes/100 leukocytes 8 % 0-12 Automated blood eosinophils/100 leukocytes 1 % 0-10 Automated blood basophils/100 leukocytes 0 % 0-10 Blood neutrophils automated count (number/volume) 6.7 10*3 1.8-7.8 Blood lymphocytes automated count (number/volume) 2.3 10*3 1.0-4.0 Blood monocytes automated count (number/volume) 0. 8 10*3 0.0-1.0 Automated eosinophil count 0.1 10*3/uL 0 .0-0.3 Automated blood basophil count (count/volume) 0.0 10*3/uL 0.0-0.1 Comprehensive metabolic panel - 01/31/19 22:17 Serum or plasma sodium measurement (moles/volume) 140 mmol/L 135-145 Serum or plasma potassium measurement (moles/volume) 4.2 mmol/L 3.6-5.0 Serum or plasma chloride measurement (moles/volume) 105 mmol/L 98-107 Carbon dioxide 24 mmol/L 21-32 Serum or plasma anion gap determination (moles/volume) 11 mmol/L 5-14 Serum or plasma urea nitrogen measurement (mass/volume ) 9 mg/dL 7-18 Serum or plasma creatinine measurement (mass/volume) 0.98 mg/dL 0.60-1.30 Serum or plasma urea nitrogen/creatinine mass ratio 9 NRG Serum or plasma creatinine measurement w ith calculation of estimated glomerular filtration rate 58 NRG Serum or plasma glucose measurement (mass/volume) 188 mg/dL 70-105 Serum or plasma calcium measurement (mass/volume) 9.1 mg/dL 8.5-10.1 Serum or plasma total bilirubin measurement (mass/volu me) 0.3 mg/dL 0.1-1.0 Serum or plasma alkaline phosphatase kit surement (enzymatic activity/volume) 109 U/L 40-136 Serum or plasma aspartate aminotransfera se measurement (enzymatic activity/volume) 21 U/L 5-34 Serum or plasma alanine aminotransferase measurement (enzymatic activity/volume) 18 U/L 0-55 Serum or plasma protein measurement (mass/volume) 7.7 g/dL 6.4-8.2 Serum or plasma albumin measurement (mass/volume) 4.1 g/dL 3.2-4.5 CALCIUM CORRECTED 9.0 mg/dL 8.5-10.1 Magnesium - 01/31/19 22:17 Magnesium 2.2 mg/dL 1.6-2.4 PT panel in platelet poor plasma by coag ulation assay - 01/31/19 22:17 Prothrombin time (PT) in platelet poor plasma by coagu lation assay 20.9 s 12.2-14.7 INR in platelet poor plasma or blood by coagulation as say 1.7 0.8-1.4 Activated partial thromboplastin time (a PTT) in platelet poor plasma bycoagulation assay - 01/31/19 22:17 Activated partial thromboplastin time (a PTT) in platelet poor plasma bycoagulation assay 34 s 24-35 Fibrin D-dimer FEU measurement in platel et poor plasma (mass/volume) - 01/31/19 22:17 Fibrin D-dimer FEU measurement in platelet poor plasma (mass/volume) 0.33 ug/mL 0.00-0.49 Serum or plasma troponin i.cardiac measu rement (mass/volume) - 01/31/19 22:17 Serum or plasma troponin i.cardiac measurement (mass/v olume) < ng/mL <0.028 Myoglobin, serum - 01/31/19 22:17 Myoglobin, serum 26.4 ng/mL 10.0-92.0 Complete blood count (CBC) with automate d white blood cell (WBC) differential - 02/06/19 15:10 Blood leukocytes automated count (number/volume) 7.6 10*3/uL 4.3-11.0 Blood erythrocytes automated count (number/volume) 4.44 10*6/uL 4.35-5.85 Venous blood hemoglobin measurement (mass/volume) 13.1 g/dL 11.5-16.0 Blood hematocrit (volume fraction) 41 % 35-52 Automated erythrocyte mean corpuscular volume 93 [ foz_us] 80-99 Automated erythrocyte mean corpuscular h emoglobin (mass per erythrocyte) 30 pg 25-34 Automated erythrocyte mean corpuscular h emoglobin concentration measurement (mass/volume) 32 g/dL 32-36 Automated erythrocyte distribution width ratio 15. 0 % 10.0- 14.5 Automated blood platelet count (count/volume) 225 10*3/uL 130-400 Automated blood platelet mean volume measurement 10.2 [foz_us] 7.4-10.4 Automated blood neutrophils/100 leukocytes 75 % 42-75 Automated blood lymphocytes/100 leukocytes 17 % 12-44 Blood monocytes/100 leukocytes 7 % 0-12 Automated blood eosinophils/100 leukocytes 1 % 0-10 Automated blood basophils/100 leukocytes 0 % 0-10 Blood neutrophils automated count (number/volume) 5.7 10*3 1.8-7.8 Blood lymphocytes automated count (number/volume) 1.3 10*3 1.0-4.0 Blood monocytes automated count (number/volume) 0. 5 10*3 0.0-1.0 Automated eosinophil count 0.1 10*3/uL 0 .0-0.3 Automated blood basophil count (count/volume) 0.0 10*3/uL 0.0-0.1 PT panel in platelet poor plasma by coag ulation assay - 02/06/19 15:10 Prothrombin time (PT) in platelet poor plasma by coagu lation assay 24.0 s 12.2-14.7 INR in platelet poor plasma or blood by coagulation as say 2.1 0.8-1.4 Activated partial thromboplastin time (a PTT) in platelet poor plasma bycoagulation assay - 02/06/19 15:10 Activated partial thromboplastin time (a PTT) in platelet poor plasma bycoagulation assay 33 s 24-35 Fibrin D-dimer FEU measurement in platel et poor plasma (mass/volume) - 02/06/19 15:10 Fibrin D-dimer FEU measurement in platelet poor plasma (mass/volume) 0.51 ug/mL 0.00-0.49 Comprehensive metabolic panel - 02/06/19 15:10 Serum or plasma sodium measurement (moles/volume) 140 mmol/L 135-145 Serum or plasma potassium measurement (moles/volume) 4.3 mmol/L 3.6-5.0 Serum or plasma chloride measurement (moles/volume) 101 mmol/L 98-107 Carbon dioxide 26 mmol/L 21-32 Serum or plasma anion gap determination (moles/volume) 13 mmol/L 5-14 Serum or plasma urea nitrogen measurement (mass/volume ) 9 mg/dL 7-18 Serum or plasma creatinine measurement (mass/volume) 0.71 mg/dL 0.60-1.30 Serum or plasma urea nitrogen/creatinine mass ratio 13 NRG Serum or plasma creatinine measurement w ith calculation of estimated glomerular filtration rate > NRG Serum or plasma glucose measurement (mass/volume) 130 mg/dL 70-105 Serum or plasma calcium measurement (mass/volume) 9.2 mg/dL 8.5-10.1 Serum or plasma total bilirubin measurement (mass/volu me) 0.2 mg/dL 0.1-1.0 Serum or plasma alkaline phosphatase kit surement (enzymatic activity/volume) 107 U/L 40-136 Serum or plasma aspartate aminotransfera se measurement (enzymatic activity/volume) 22 U/L 5-34 Serum or plasma alanine aminotransferase measurement (enzymatic activity/volume) 21 U/L 0-55 Serum or plasma protein measurement (mass/volume) 7.3 g/dL 6.4-8.2 Serum or plasma albumin measurement (mass/volume) 3.9 g/dL 3.2-4.5 CALCIUM CORRECTED 9.3 mg/dL 8.5-10.1 TROPONIN I FS - 02/06/19 15:10 TROPONIN I FS < 0.30 <0.30 Serum or plasma lithium measurement (mol es/volume) - 02/06/19 15:10 BNP PT 12.3 pg/mL <100.0 Serum or plasma creatine kinase MB measu rement (enzymatic activity/volume) - 02/06/19 15:10 Serum or plasma creatine kinase MB measu rement (enzymatic activity/volume) 1.1 ng/mL <6.6 TROPONIN I FS - 02/06/19 17:35 TROPONIN I FS < 0.30 <0.30 Complete blood count (CBC) with automate d white blood cell (WBC) differential - 05/30/19 17:26 Blood leukocytes automated count (number/volume) 8.8 10*3/uL 4.3-11.0 Blood erythrocytes automated count (number/volume) 4.73 10*6/uL 4.35-5.85 Venous blood hemoglobin measurement (mass/volume) 13.8 g/dL 11.5-16.0 Blood hematocrit (volume fraction) 44 % 35-52 Automated erythrocyte mean corpuscular volume 94 [ foz_us] 80-99 Automated erythrocyte mean corpuscular h emoglobin (mass per erythrocyte) 29 pg 25-34 Automated erythrocyte mean corpuscular h emoglobin concentration measurement (mass/volume) 31 g/dL 32-36 Automated erythrocyte distribution width ratio 14. 4 % 10.0- 14.5 Automated blood platelet count (count/volume) 213 10*3/uL 130-400 Automated blood platelet mean volume measurement 10.4 [foz_us] 7.4-10.4 Automated blood neutrophils/100 leukocytes 75 % 42-75 Automated blood lymphocytes/100 leukocytes 15 % 12-44 Blood monocytes/100 leukocytes 8 % 0-12 Automated blood eosinophils/100 leukocytes 1 % 0-10 Automated blood basophils/100 leukocytes 0 % 0-10 Blood neutrophils automated count (number/volume) 6.6 10*3 1.8-7.8 Blood lymphocytes automated count (number/volume) 1.3 10*3 1.0-4.0 Blood monocytes automated count (number/volume) 0. 7 10*3 0.0-1.0 Automated eosinophil count 0.1 10*3/uL 0 .0-0.3 Automated blood basophil count (count/volume) 0.0 10*3/uL 0.0-0.1 PT panel in platelet poor plasma by coag ulation assay - 05/30/19 17:26 Prothrombin time (PT) in platelet poor plasma by coagu lation assay 19.8 s 12.2-14.7 INR in platelet poor plasma or blood by coagulation as say 1.6 0.8-1.4 Activated partial thromboplastin time (a PTT) in platelet poor plasma bycoagulation assay - 05/30/19 17:26 Activated partial thromboplastin time (a PTT) in platelet poor plasma bycoagulation assay 31 s 24-35 TROPONIN I FS - 05/30/19 17:26 TROPONIN I FS < 0.30 <0.30 Comprehensive metabolic panel - 05/30/19 17:26 Serum or plasma sodium measurement (moles/volume) 138 mmol/L 135-145 Serum or plasma potassium measurement (moles/volume) 4.3 mmol/L 3.6-5.0 Serum or plasma chloride measurement (moles/volume) 100 mmol/L 98-107 Carbon dioxide 24 mmol/L 21-32 Serum or plasma anion gap determination (moles/volume) 14 mmol/L 5-14 Serum or plasma urea nitrogen measurement (mass/volume ) 11 mg/dL 7-18 Serum or plasma creatinine measurement (mass/volume) 0.77 mg/dL 0.60-1.30 Serum or plasma urea nitrogen/creatinine mass ratio 14 NRG Serum or plasma creatinine measurement w ith calculation of estimated glomerular filtration rate > NRG Serum or plasma glucose measurement (mass/volume) 124 mg/dL 70-105 Serum or plasma calcium measurement (mass/volume) 9.0 mg/dL 8.5-10.1 Serum or plasma total bilirubin measurement (mass/volu me) 0.2 mg/dL 0.1-1.0 Serum or plasma alkaline phosphatase kit surement (enzymatic activity/volume) 109 U/L 40-136 Serum or plasma aspartate aminotransfera se measurement (enzymatic activity/volume) 18 U/L 5-34 Serum or plasma alanine aminotransferase measurement (enzymatic activity/volume) 19 U/L 0-55 Serum or plasma protein measurement (mass/volume) 7.8 g/dL 6.4-8.2 Serum or plasma albumin measurement (mass/volume) 4.1 g/dL 3.2-4.5 CALCIUM CORRECTED 8.9 mg/dL 8.5-10.1 Magnesium - 05/30/19 17:26 Magnesium 2.4 mg/dL 1.6-2.4 Myoglobin, serum - 05/30/19 17:26 Myoglobin, serum 78.7 ng/mL 10.0-92.0 Lipase - 05/30/19 17:26 Lipase 53 U/L 8-78 Influenza virus A and B antigen detectio n - 05/30/19 17:34 FLU RESULT NEGATIVE FOR INFLUENZA A AND B ANTIGENS BY IA NRG PT/INR - 06/17/19 17:20 INR 1.9 NRG PT 18.8 sec 9.0-11.5 PT/INR - 08/12/19 16:15 INR 4.2 NRG PT 40.8 sec 9.0-11.5 Complete blood count (CBC) with automate d white blood cell (WBC) differential - 09/22/19 14:30 Blood leukocytes automated count (number/volume) 8.9 10*3/uL 4.3-11.0 Blood erythrocytes automated count (number/volume) 4.42 10*6/uL 4.35-5.85 Venous blood hemoglobin measurement (mass/volume) 13.1 g/dL 11.5-16.0 Blood hematocrit (volume fraction) 40 % 35-52 Automated erythrocyte mean corpuscular volume 91 [ foz_us] 80-99 Automated erythrocyte mean corpuscular h emoglobin (mass per erythrocyte) 30 pg 25-34 Automated erythrocyte mean corpuscular h emoglobin concentration measurement (mass/volume) 32 g/dL 32-36 Automated erythrocyte distribution width ratio 15. 2 % 10.0- 14.5 Automated blood platelet count (count/volume) 207 10*3/uL 130-400 Automated blood platelet mean volume measurement 10.4 [foz_us] 7.4-10.4 Automated blood neutrophils/100 leukocytes 67 % 42-75 Automated blood lymphocytes/100 leukocytes 24 % 12-44 Blood monocytes/100 leukocytes 7 % 0-12 Automated blood eosinophils/100 leukocytes 2 % 0-10 Automated blood basophils/100 leukocytes 0 % 0-10 Blood neutrophils automated count (number/volume) 5.9 10*3 1.8-7.8 Blood lymphocytes automated count (number/volume) 2.2 10*3 1.0-4.0 Blood monocytes automated count (number/volume) 0. 6 10*3 0.0-1.0 Automated eosinophil count 0.1 10*3/uL 0 .0-0.3 Automated blood basophil count (count/volume) 0.0 10*3/uL 0.0-0.1 PT panel in platelet poor plasma by coag ulation assay - 09/22/19 14:30 Prothrombin time (PT) in platelet poor plasma by coagu lation assay 26.2 s 12.2-14.7 INR in platelet poor plasma or blood by coagulation as say 2.3 0.8-1.4 Comprehensive metabolic panel - 09/22/19 14:30 Serum or plasma sodium measurement (moles/volume) 140 mmol/L 135-145 Serum or plasma potassium measurement (moles/volume) 4.2 mmol/L 3.6-5.0 Serum or plasma chloride measurement (moles/volume) 100 mmol/L 98-107 Carbon dioxide 27 mmol/L 21-32 Serum or plasma anion gap determination (moles/volume) 13 mmol/L 5-14 Serum or plasma urea nitrogen measurement (mass/volume ) 13 mg/dL 7-18 Serum or plasma creatinine measurement (mass/volume) 0.87 mg/dL 0.60-1.30 Serum or plasma urea nitrogen/creatinine mass ratio 15 NRG Serum or plasma creatinine measurement w ith calculation of estimated glomerular filtration rate > NRG Serum or plasma glucose measurement (mass/volume) 172 mg/dL 70-105 Serum or plasma calcium measurement (mass/volume) 8.9 mg/dL 8.5-10.1 Serum or plasma total bilirubin measurement (mass/volu me) 0.3 mg/dL 0.1-1.0 Serum or plasma alkaline phosphatase kit surement (enzymatic activity/volume) 102 U/L 40-136 Serum or plasma aspartate aminotransfera se measurement (enzymatic activity/volume) 22 U/L 5-34 Serum or plasma alanine aminotransferase measurement (enzymatic activity/volume) 20 U/L 0-55 Serum or plasma protein measurement (mass/volume) 7.2 g/dL 6.4-8.2 Serum or plasma albumin measurement (mass/volume) 3.8 g/dL 3.2-4.5 CALCIUM CORRECTED 9.1 mg/dL 8.5-10.1 Capillary blood glucose measurement by g lucometer (mass/volume) - 09/22/19 14:33 Capillary blood glucose measurement by glucometer (mas s/volume) 152 mg/dL 70-110 Complete urinalysis with reflex to cultu re - 09/22/19 15:15 Urine color determination YELLOW NRG Urine clarity determination CLEAR NR G Urine pH measurement by test strip 6.0 5-9 Specific gravity of urine by test strip 1.025 1.016-1.022 Urine protein assay by test strip, semi-quantitative NEGATIVE NEGATIVE Urine glucose detection by automated test strip NE GATIVE NEGATIVE Erythrocytes detection in urine sediment by light micr oscopy 1+ NEGATIVE Urine ketones detection by automated test strip NE GATIVE NEGATIVE Urine nitrite detection by test strip NEGATIVE NEGATIVE Urine total bilirubin detection by test strip NEGA TIVE NEGATIVE Urine urobilinogen measurement by automated test strip (mass/volume) 0.2 mg/dL < = 1.0 Urine leukocyte esterase detection by dipstick NEG ATIVE NEGATIVE Automated urine sediment erythrocyte cou nt by microscopy (number/high power field) [HPF] NRG Automated urine sediment leukocyte count by microscopy (number/high power field) NONE NRG Bacteria detection in urine sediment by light microsco py FEW NRG Squamous epithelial cells detection in u rine sediment by light microscopy 2-5 NRG Crystals detection in urine sediment by light microsco py NONE NRG Casts detection in urine sediment by light microscopy NONE NRG Mucus detection in urine sediment by light microscopy NEGATIVE NRG Complete urinalysis with reflex to culture NO NRG Urine drug screening test - 09/22/19 15: 15 Urine phencyclidine detection by screening method NEGATIVE NEGATIVE Urine benzodiazepines detection by screening method NEGATIVE NEGATIVE Urine cocaine detection NEGATIVE NEGATI VE Urine amphetamines detection by screening method N EGATIVE NEGATIVE Urine methamphetamine detection by screening method NEGATIVE NEGATIVE Urine cannabinoids detection by screening method N EGATIVE NEGATIVE Urine opiates detection by screening method NEGATI VE NEGATIVE Urine barbiturates detection NEGATIVE N EGATIVE Screening urine tricyclic antidepressants detection NEGATIVE NEGATIVE Urine methadone detection by screening method NEGA TIVE NEGATIVE Urine oxycodone detection NEGATIVE NEGA TIVE Urine propoxyphene detection NEGATIVE N EGATIVE Encounters ACCT No. Visit Date/Time Discharge Status Pt. Type Provider Facility Loc./Unit Complaint [id number] 08/09/2016 03:07:00 Document Registration [id number] 10/23/2016 15:09:00 Document Registration [id number] 09/22/2019 14:14:00 15:55:00 DIS Emergency GERMAN MAHMOOD MD [facility] ER FS FACIAL/LT ARM NUMBNESS [id number] 05/30/2019 16:52:00 19:21:00 DIS Emergency KUMAR OCHOA DO [facility] ER FS LOW BLOOD PRESSURE [id number] 02/06/2019 14:55:00 19:18:00 DIS Emergency MALIKA LY MD [facility] ER FS CHEST PAIN [id number] 01/31/2019 21:44:00 23:24:00 DIS Emergency ROSINA VICENTE [facility] ER LEFT ARM SWELLING [id number] 12/15/2018 14:43:00 23:59:59 CLS Outpatient NEVA HU APRN [facility] RAD HEMATURIA, UNSPECIFIED TYPE. [id number] 11/13/2018 19:31:00 21:48:00 DIS Emergency SHALOM RAMÍREZ DOPSTER [facility] ER UTI [id number] 11/05/2018 17:39:00 21:19:00 DIS Emergency NORIS DOHERTY DO [facility] ER NAUSEA/RECTAL BLEEDING [id number] 10/05/2018 14:36:00 19:15:00 DIS Emergency MARIO MOYAALEJANDRA [facility] ER FS CHEST PAIN [id number] 09/09/2018 13:30:00 23:59:59 CLS Outpatient DIANA HU [facility] RAD FS M79.671 [id number] 08/11/2018 08:53:00 23:59:59 CLS Outpatient NEVA HU DOPSTER [facility] RAD FS RECURRENT SYNCOPE [id number] 07/26/2018 21:53:00 00:09:00 DIS Emergency STEPHANY NAM, AMANDEEP Yusuf [facility] ER FS RT FOOT INJ [id number] 07/09/2018 14:14:00 18:30:00 DIS Emergency RAJWINDER NAM, DEWEY Patel [facility] ER DIZZY, LIGHT HEADED [id number] 09/28/2017 00:11:00 23:59:59 CLS Preadmit REAGAN MCNEILL MD [facility] LAB Z51.81 Z86.711 [id number] 09/26/2017 09:48:00 00:01:00 DIS Outpatient REAGAN MCNEILL MD [facility] LAB Z51.81 Z86.711 [id number] 09/04/2017 22:53:00 018 15:17:00 DIS Inpatient VIANNEY SMITH DO [facility] 4TH CHEST PAIN [id number] 08/20/2017 12:34:00 04/12/2 018 13:57:00 DIS Emergency SHALOM RAMÍREZ DOPSTER [facility] ER CP [id number] 08/19/2017 08:24:00 018 09:55:00 DIS Outpatient REAGAN MCNEILL MD [facility] CATH ABN STRESS,CP,HTN [id number] 08/05/2017 10:36:00 018 23:59:59 CLS Outpatient TODD WAGNER [facility] CARD I25.10 CAD [id number] 07/13/2017 14:45:00 018 23:59:59 CLS Preadmit MICHAEL WAGNER [facility] CARD I25.10 CAD [id number] 07/10/2017 12:47:00 018 23:59:59 CLS Outpatient PAYAL VIGIL DOPSTER [facility] RAD N20.0 RENAL STO AB [id number] 02/05/2017 12:52:00 017 23:59:59 CLS Outpatient PAYAL VIGIL DOPSTER [facility] RAD M54.2 [id number] 01/20/2017 18:36:00 017 23:32:00 DIS Emergency CHARLES LOPEZ MD [facility] ER SOB,DIZZINESS,N AUSEA [id number] 12/29/2016 00:14:00 017 23:59:59 CLS Preadmit REAGAN MCNEILL MD [facility] LAB Z86.711 [id number] 12/28/2016 13:45:00 017 15:30:00 DIS Emergency BESSY DONORIS a [facility] ER HEADACHE [id number] 09/29/2016 14:31:00 017 00:01:00 DIS Outpatient REAGAN MCNEILL MD [facility] LAB Z86.711 [id number] 09/04/2016 13:36:00 017 16:13:00 DIS Emergency TJ, MIRIAM [employer] [facility] ER FALL/ RIGHT KNEE INJ [id number] 07/17/2016 06:58:00 017 23:59:59 CLS Outpatient PATRICKDATKAVYA Jeffrey DOPSTER [facility] RAD GENERALIZED ABD PAIN [id number] 02/16/2016 19:06:00 016 22:12:00 DIS Emergency SHALOM RAMÍREZ DOPSTER [facility] ER CHEST PAIN [id number] 02/15/2016 12:58:00 016 23:59:59 CLS Outpatient PAYAL VIGIL Torri DOPSTER [facility] RAD ACUTE RT SIDED THORACIC PAIN [id number] 09/05/2015 07:05:00 016 09:30:00 DIS Outpatient REAGAN MCNEILL MD [facility] CATH CAD,HTN HLP SYNCOPE [id number] 09/04/2015 14:08:00 016 16:10:00 DIS Emergency SHALOM RAMÍREZ DOPSTER [facility] ER CHEST PAIN [id number] 06/21/2015 15:25:00 016 19:18:00 DIS Emergency MICHELE COTTON [facility] ER SOA [id number] 05/23/2015 15:54:00 016 23:59:59 CLS Outpatient MIGDALIA JIMENEZ DO [facility] LAB HYPOTHYROIDISM, DISORDER OF THE DIGESTIVE SYSTEM [id number] 05/14/2015 21:53:00 016 00:14:00 DIS Emergency NORIS DOHERTY DO [facility] ER POST SURGICAL PAIN [id number] 04/21/2015 12:17:00 015 15:18:00 DIS Emergency CHARLES LOPEZ MD [facility] ER POST OP/BLOODY DRAINAGE [id number] 04/19/2015 06:00:00 19:00:00 DIS Outpatient CHAS RODARTE DO [facility] SDC CRONIC PELVIC PAIN [id number] 04/18/2015 10:51:00 15:10:00 DIS Outpatient BALDEV LITTLEJOHN DO [facility] ABDOMINAL PAIN [id number] 04/14/2015 10:47:00 12:53:00 DIS Emergency DEWEY PURDY MD [facility] ER L LEG PAIN/WEAKNESS [id number] 04/12/2015 13:39:00 23:59:59 CLS Outpatient CHEN INFANTE APRN [facility] LAB ACUTE UPPER RES PIRATORY INFECTION [id number] 04/12/2015 13:34:00 23:59:59 CLS Outpatient CHAS RODARTE DO [facility] PREOP CRONIC PELVIC PAIN [id number] 04/12/2015 13:20:00 23:59:59 CLS Outpatient BALDEV LITTLEJOHN DO [facility] PREOP ABD. PAIN [id number] 03/21/2015 14:46:00 23:59:59 CLS Outpatient CHAS RODARTE DO [facility] RAD PELVIC PAIN [id number] 03/21/2015 10:49:00 23:59:59 CLS Outpatient BALDEV LITTLEJOHN DO [facility] RAD SUPRAPUBIC ABD PAIN [id number] 01/17/2015 10:59:00 23:59:59 CLS Outpatient CHAS RODARTE DO [facility] RAD IUD NOT FOUND ON SONO [id number] 01/12/2015 10:03:00 12:10:00 DIS Emergency CELY VIGIL MD [facility] ER POSS BLOOD CLOT IN LUNG [id number] 01/08/2015 15:12:00 23:59:59 CLS Outpatient CHAS RODARTE DO [facility] RAD FIBROID UTERUS [id number] 01/05/2015 15:46:00 015 17:46:00 DIS Emergency SHALOM RAMÍREZ APRN [facility] ER POST COLONOSCOPY [id number] 01/02/2015 13:01:00 015 15:55:00 DIS Outpatient BALDEV LITTLEJOHN DO [facility] SDC RECTAL BLEEDING [id number] 12/28/2014 05:53:00 015 23:59:59 CLS Outpatient BALDEV LITTLEJOHN DO [facility] PREOP RECTAL BLEEDING [id number] 11/08/2014 14:02:00 015 23:59:59 CLS Outpatient CATERINA SHAH DO [facility] RT DYSPNEA [id number] 11/08/2014 20:53:00 22:18:00 DIS Emergency SHALOM RAMÍREZ APRN [facility] ER ABD PAIN [id number] 10/01/2014 12:06:00 015 13:20:00 DIS Emergency MICHELE COTTON [facility] ER CAT BITE [id number] 09/29/2014 17:38:00 015 20:24:00 DIS Emergency SHALOM RAMÍREZ APRN [facility] ER POSSIBLE INTERNAL BLEED ING [id number] 09/06/2014 15:19:00 015 16:50:00 DIS Emergency MICHELE COTTON [facility] ER L FOOT/KNEE PAIN [id number] 08/08/2014 14:28:00 23:59:59 CLS Outpatient CHALRES FREED [facility] RAD PAIN IN LIMB [id number] 06/23/2014 02:44:00 015 04:43:00 DIS Emergency CHARLES LOPEZ MD [facility] ER ABD PAIN [id number] 06/21/2014 13:14:00 015 16:31:00 DIS Emergency NORIS DOHERTY DO [facility] ER VAG BLEEDING [id number] 06/07/2014 19:12:00 015 22:17:00 DIS Emergency NORIS DOHERTY DO [facility] ER LOWER R SIDE PAIN [id number] 05/26/2014 13:46:00 23:59:59 CLS Outpatient CHAS RODARTE DO Amanda [facility] RAD RLQ ABD PAIN [id number] 04/21/2014 22:55:00 014 01:35:00 DIS Emergency NORIS DOHERTY DO [facility] ER CP [id number] 02/02/2014 06:00:00 014 11:25:00 DIS Outpatient CHASTITYCHAS JOHNSON DO [facility] SDC PELVIC PAIN [id number] 01/25/2014 10:03:00 23:59:59 CLS Outpatient CAYDEN MOYA CHSA Amanda [facility] PREOP PELVIC PAIN [id number] 01/12/2014 22:23:00 00:42:00 DIS Emergency NORIS DOHERTY DO Zamzam santana [facility] ER CHEST PAIN [id number] 2013 14:06:00 18:02:00 DIS Emergency MICHELE COTTON [facility] ER POSS UTI [id number] 12/05/2013 20:51:00 014 22:14:00 DIS Emergency SHALOM RAMÍREZ APRN [facility] ER PAINFUL URINATION [id number] 11/26/2013 11:37:00 014 12:18:00 DIS Emergency SHALOM RAMÍREZ DOPSTER [facility] ER UTI [id number] 09/30/2013 19:00:00 014 15:30:00 DIS Outpatient REAGAN MCNEILL MD [facility] CATH CHEST PAIN [id number] 09/12/2013 07:58:00 014 23:59:59 CLS Outpatient TODD WAGNER [facility] CARD CAD,CP,GERD ,ROGERS [id number] 08/16/2013 11:45:00 13:35:00 DIS Inpatient REAGAN MCNEILL MD [facility] CSD CHEST PAIN [id number] 07/15/2013 11:49:00 12:17:00 DIS Emergency SHALOM RAMÍREZ APRN [facility] ER RIGHT ANKLE PAIN [id number] 07/11/2013 14:43:00 23:59:59 CLS Outpatient [id number] 06/10/2013 15:51:00 23:59:59 CLS Outpatient [id number] 05/19/2013 13:11:00 23:59:59 CLS Outpatient CHARLES FREED [facility] RAD DX PNEUMONIA [id number] 05/12/2013 21:14:00 23:15:00 DIS Emergency CHARLES LOPEZ MD [facility] ER SOA [id number] 04/01/2013 12:54:00 23:59:59 CLS Outpatient CHARLES FREED [facility] CARD SOB, ENLARGED MEDIASTIN UM [id number] 02/27/2013 19:11:00 21:12:00 DIS Emergency MICHELE COTTON [facility] ER NECK/HEAD/BACK PAIN [id number] 01/26/2013 16:39:00 18:16:00 DIS Emergency CHARLES LOPEZ MD [facility] ER COMPLICATIONS F ROM CONCUSSION [id number] 01/11/2013 22:33:00 03:42:00 DIS Emergency CHARLES LOPEZ MD [facility] ER FELL, HEADACHE,DIZZINESS,NAUSEA [id number] 01/06/2013 09:51:00 23:59:59 CLS Outpatient ACE BAJWA MD [facility] LAB BARREL WATERER MED USE [id number] 01/06/2013 09:20:00 23:59:59 CLS Outpatient CHARLES FREED [facility] RAD 1.3 CM MASS [id number] 12/24/2012 08:13:00 23:59:59 CLS Outpatient CHARLES FREED [facility] RAD BREAST PAIN [id number] 11/28/2012 04:59:00 013 07:08:00 DIS Emergency DAVID NAM, WERNER Dillon [facility] ER R SIDE FACIAL PAIN; NO INJ [id number] 11/26/2012 17:26:00 23:59:59 CLS Outpatient [id number] 10/21/2012 14:42:00 19:32:00 DIS Emergency MUSA NAM, CELY Resendiz [facility] ER GI BLEED [id number] 10/19/2012 03:00:00 013 15:15:00 DIS Outpatient CHARITO NAM, REAGAN Balderas [facility] CATH CHEST PAIN [id number] 10/18/2012 10:23:00 13:31:00 DIS Emergency CHARLES LOPEZ MD [facility] ER CP [id number] 08/10/2015 18:15:00 Document Registration [id number] 04/22/2014 05:17:00 Document Registration [id number] 04/22/2014 05:17:00 Document Registration [id number] 04/22/2014 05:17:00 Document Registration [id number] 04/22/2014 05:17:00 Document Registration [id number] 04/22/2014 05:17:00 Document Registration [id number] 04/22/2014 05:17:00 Document Registration [id number] 08/17/2012 07:41:00 Document Registration [id number] 08/12/2012 12:16:00 Document Registration [id number] 08/08/2012 21:15:00 Document Registration [id number] 06/20/2012 11:44:00 Document Registration [id number] 05/17/2012 09:58:00 Document Registration [id number] 05/05/2012 07:31:00 Document Registration [id number] 04/20/2012 17:20:00 Document Registration [id number] 03/15/2012 15:15:00 Document Registration [id number] 02/03/2012 05:39:00 Document Registration [id number] 01/29/2012 12:58:00 Document Registration [id number] 01/19/2012 19:43:00 Document Registration [id number] 01/17/2012 15:24:00 Document Registration [id number] 12/31/2011 19:30:00 Document Registration [id number] 11/27/2011 09:08:00 Document Registration [id number] 10/29/2011 19:49:00 Document Registration [id number] 08/28/2011 05:48:00 Document Registration [id number] 08/21/2011 14:12:00 Document Registration [id number] 03/04/2011 13:31:00 Document Registration [id number] 10/08/2010 04:55:00 Document Registration [id number] 08/26/2010 20:58:00 Document Registration [id number] 08/15/2010 09:13:00 Document Registration [id number] 09/15/2009 21:29:00 Document Registration [id number] 09/07/2009 12:20:00 Document Registration [id number] 08/07/2014 09:51:00 08/07/2014 23:59: 59 CLS Outpatient ARIZA DO, JOSE ALBERTO Astrid [id number] 05/26/2014 11:37:00 05/26/2014 23:59: 59 CLS Outpatient ARIZA DOJOSE ALBERTO [id number] 01/16/2014 11:28:00 01/16/2014 23:59: 59 CLS Outpatient ARIZA DOJOSE ALBERTO [id number] 12/26/2013 12:31:00 12/26/2013 23:59: 59 CLS Outpatient ARIZA DO, JOSE ALBERTO Resendiz [id number] 12/19/2013 13:24:00 12/19/2013 23:59: 59 CLS Outpatient ARIZA DOJOSE ALBERTO [id number] 12/16/2013 13:58:00 12/16/2013 23:59: 59 CLS Outpatient ARIZA DOJOSE ALBERTO [id number] 12/16/2013 13:58:00 12/16/2013 23:59: 59 CLS Outpatient ARIZA DOJOSE ALBERTO Astrid [id number] 10/07/2013 14:22:00 10/07/2013 23:59: 59 CLS Outpatient ARIZA DOJOSE ALBERTO [id number] 09/02/2013 10:22:00 09/02/2013 23:59: 59 CLS Outpatient ARIZA DOJOSE ALBERTO Astrid [id number] 08/15/2013 14:48:00 08/15/2013 23:59: 59 CLS Outpatient ARIZA DOCHRISTOPHERSantana Resendiz [id number] 07/14/2013 14:39:00 07/14/2013 23:59: 59 CLS Outpatient CHERYL BIRMINGHAM APRN [id number] 07/08/2013 08:55:00 07/08/2013 23:59: 59 CLS Outpatient ARIZA DOCHRISTOPHERSantana Resendiz [id number] 06/23/2013 09:13:00 06/23/2013 23:59: 59 CLS Outpatient CHARLES DOYLE PA-C [id number] 06/14/2013 15:59:00 06/14/2013 23:59: 59 CLS Outpatient CHERYL BIRMINGHAM APRN [id number] 05/30/2013 12:08:00 05/30/2013 23:59: 59 CLS Outpatient ARIZA DOJOSE ALBERTO Astrid [id number] 05/23/2013 10:34:00 05/23/2013 23:59: 59 CLS Outpatient ARIZA DO JOSE ALBERTO Resendiz [id number] 05/23/2013 10:34:00 05/23/2013 23:59: 59 CLS Outpatient ARIZA DOJOSE ALBERTO Astrid [id number] 05/18/2013 17:42:00 05/18/2013 23:59: 59 CLS Outpatient DONI PALAFOX APRN [id number] 04/18/2013 11:55:00 04/18/2013 23:59: 59 CLS Outpatient ARIZA DO JOSE ALBERTO Resendiz [id number] 03/29/2013 11:13:00 03/29/2013 23:59: 59 CLS Outpatient ARIZA DO JOSE ALBERTO Resendiz [id number] 03/22/2013 09:39:00 03/22/2013 23:59: 59 CLS Outpatient ARIZA DOJOSE ALBERTO [id number] 03/22/2013 09:39:00 03/22/2013 23:59: 59 CLS Outpatient ARIZA DOJOSE ALBERTO [id number] 03/15/2013 09:00:00 03/15/2013 23:59: 59 CLS Outpatient ARIZA DOJOSE ALBERTO [id number] 03/15/2013 09:00:00 03/15/2013 23:59: 59 CLS Outpatient ARIZA DOJOSE ALBERTO [id number] 02/10/2013 08:00:00 02/10/2013 23:59: 59 CLS Outpatient ARIZA DOJOSE ALBERTO [id number] 07/28/2012 14:05:00 07/28/2012 23:59: 59 CLS Outpatient ARIZA DOJOSE ALBERTO [id number] 07/13/2012 10:49:00 07/13/2012 23:59: 59 CLS Outpatient ARIZA DOJOSE ALBERTO [id number] 06/29/2012 07:51:00 06/29/2012 23:59: 59 CLS Outpatient CHARLES DOYLE PA-C [id number] 06/10/2012 10:44:00 06/10/2012 23:59: 59 CLS Outpatient [id number] 06/03/2012 09:27:00 06/03/2012 23:59: 59 CLS Outpatient ARIZA DOJOSE ALBERTO [id number] 05/14/2012 15:57:00 05/14/2012 23:59: 59 CLS Outpatient ARIZA DOJOSE ALBERTO [id number] 04/27/2012 08:04:00 04/27/2012 23:59: 59 CLS Outpatient [id number] 04/22/2012 09:50:00 04/22/2012 23:59: 59 CLS Outpatient [id number] 04/20/2012 16:19:00 04/20/2012 23:59: 59 CLS Outpatient [id number] 02/05/2012 08:28:00 02/05/2012 23:59:5 9 CLS Outpatient MORIS LOYLOA MD [id number] 01/12/2013 09:13:00 Document Registration [id number] 12/16/2012 09:21:00 Document Registration [id number] 12/16/2012 09:21:00 Document Registration [id number] 10/28/2012 12:34:00 Document Registration [id number] 09/10/2012 16:36:00 Document Registration [id number] 08/31/2012 10:19:00 Document Registration [id number] 08/31/2012 10:19:00 Document Registration [id number] 08/12/2019 16:00:00 08/12/2019 23:59: 59 [facility] [id number] 08/12/2019 16:00:00 Document Registration [id number] 06/17/2019 16:40:00 Document Registration [id number] 01/26/2019 08:00:00 Document Registration [id number] 12/01/2018 09:40:00 Document Registration [id number] 01/01/2018 13:20:00 Document Registration [id number] 09/10/2017 13:00:00 Document Registration [id number] 06/29/2017 14:45:00 Document Registration [id number] 03/26/2017 13:00:00 Document Registration [id number] 01/05/2017 16:00:00 Document Registration [id number] 04/02/2016 13:06:00 Document Registration [id number] 01/06/2017 08:06:00 Document Registration
--- NOTE | 2019-11-03 19:55 | Diagnostic Imaging Report ---
INDICATION: Dizziness. Shortness of breath. COMPARISON: 09/22/2019. EXAMINATION: Portable chest. FINDINGS: The lungs are well-aerated and clear. There is cardiomegaly. No evidence of pulmonary edema. No pneumothorax or pleural effusion. IMPRESSION: Cardiomegaly with no significant change since previous exam. Dictated by: Dictated on workstation # [id number]
[2019-11-03 19:58] LABS: CLARITY,URINE SL CLOUDY
[2019-11-03 19:59] LABS: BACTERIA,URINE MODERATE /HPF; RBC,URINE 0-2 /HPF; WBC,URINE 0-2 /HPF
[2019-11-03 20:11] LABS: ALANINE AMINOTRANSFERASE 21 U/L (0-55); ALBUMIN 4.2 GM/DL (3.2-4.5); ALKALINE PHOSPHATASE 103 U/L (40-136); BILIRUBIN,TOTAL 0.3 MG/DL (0.1-1.0); BUN/CREATININE RATIO 8; CALCIUM 9.1 MG/DL (8.5-10.1); CARBON DIOXIDE 25 MMOL/L (21-32); CHLORIDE 103 MMOL/L (98-107); GFR ESTIMATED 50; GLUCOSE 164 MG/DL (70-105); POTASSIUM 3.9 MMOL/L (3.6-5.0); SODIUM 140 MMOL/L (135-145); TOTAL PROTEIN 8.1 GM/DL (6.4-8.2)
[2019-11-03 20:26] VITALS: BP 130/59
== END 2019-11-03 20:29 | disposition home or self-care (01) ==
LOC: EDUNIT# 19:06 → ER 19:07
DX: E86.9 Volume depletion, unspecified (principal); R42 Dizziness and giddiness; R11.0 Nausea; E03.9 Hypothyroidism, unspecified; J45.909 Unspecified asthma, uncomplicated; I10 Essential (primary) hypertension; I25.10 Atherosclerotic heart disease of native coronary artery without angina pectoris; G62.9 Polyneuropathy, unspecified; K21.9 Gastro-esophageal reflux disease without esophagitis; K59.09 Other constipation; G89.29 Other chronic pain; R10.2 Pelvic and perineal pain; M54.9 Dorsalgia, unspecified; G43.909 Migraine, unspecified, not intractable, without status migrainosus; E66.01 Morbid (severe) obesity due to excess calories; Z88.0 Allergy status to penicillin; Z88.6 Allergy status to analgesic agent; Z88.8 Allergy status to other drugs, medicaments and biological substances; Z79.82 Long term (current) use of aspirin; Z79.02 Long term (current) use of antithrombotics/antiplatelets; Z79.891 Long term (current) use of opiate analgesic; Z85.038 Personal history of other malignant neoplasm of large intestine; Z68.43 Body mass index [BMI] 50.0-59.9, adult; Z80.0 Family history of malignant neoplasm of digestive organs; Z79.890 Hormone replacement therapy; Z82.49 Family history of ischemic heart disease and other diseases of the circulatory system; Z86.711 Personal history of pulmonary embolism; Z95.5 Presence of coronary angioplasty implant and graft; Z79.01 Long term (current) use of anticoagulants
CPT/HCPCS: 36415; 71045; 80053; 81000; 83880; 84484; 85025; 87088

== ENCOUNTER 2019-11-17 15:21 | Observation (INO) | payer MEDICARE, MEDICAID ==
[~2019-11-17] VITALS: Ht 157.5 cm; Wt 138.0 kg
--- NOTE | 2019-11-17 15:34 | ED General ---
General Chief Complaint: Chest Pain Stated Complaint: CHEST PAIN History of Present Illness Date Seen by Provider: Nov 17, 2019 Time Seen by Provider: 15:31 Initial Comments Patient presenting to emergency department for evaluation of chest pain that she says started in o'clock this morning. She described it initially as a sharp stabbing pain but then she said it felt as if something was sitting on her chest. She says that she has some shortness of breath but no nausea vomiting or diaphoresis. Patient has morbid obesity and hypercholesterolemia but denies any hypertension or diabetes. She does have coronary artery disease requiring 2 stents and she says that her last heart catheterization was approximately one year ago at [facility]. She says that she called her deliverer merchandise Dr. Yves Duggan and he said that she should come to the emergency department. 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 She does not take an aspirin daily but says that she has been taking naproxen. She says that this pain feels similar to her prior cardiac events. She is in no obvious distress with normal vital signs other than hypertension noted. Allergies and Home Medications Allergies Coded Allergies: methylprednisolone (Verified Allergy, Mild, 11/05/18) Penicillins (Unverified Allergy, Unknown, 11/05/18) atorvastatin (Verified Allergy, Unknown, 11/05/18) isosorbide (Verified Allergy, Unknown, 11/05/18) ketorolac (Verified Allergy, Unknown, ITCHING, 11/05/18) promethazine (Unverified Allergy, Unknown, hallucinations, 11/05/18) venom-honey bee (Unverified Allergy, Unknown, 11/05/18) Uncoded Allergies: TAPE (Allergy, Unknown, 08/16/13) Home Medications Acetaminophen 500 Mg Tablet, 500 MG PO BID PRN for PAIN-MILD, (Reported) Albuterol Sulfate 18 Gm Hfa.aer.ad, 1 PUFF INH Q4H PRN for SHORTNESS OF BREATH, (Reported) Albuterol Sulfate 2.5 Mg/3 Ml Vial.neb, 2.5 MG NEB Q4H PRN for SHORTNESS OF BREATH, (Reported) Aspirin 81 Mg Tablet.dr, 81 MG PO DAILY Prescribed by: REAGAN MELARA on 08/20/17 0800 Cefuroxime Axetil 250 Mg Tablet, 250 MG PO BID Prescribed by: SHALOM RAMÍREZ on 11/13/18 2140 Clopidogrel Bisulfate 75 Mg Tablet, 75 MG PO DAILY Prescribed by: REAGAN MELARA on 08/20/17 0800 Hydrocodone Bit/Acetaminophen 1 Each Tablet, 1 TAB PO Q6H, (Reported) Hydrocodone Bit/Acetaminophen 1 Ea Tablet, 1 EACH PO Q6H PRN for CHEST PAIN Prescribed by: YVES MARTIN on 10/05/18 1849 Levothyroxine Sodium 150 Mcg Tablet, 150 MCG PO HS, (Reported) Nitrofurantoin Monohyd/M-Cryst 100 Mg Capsule, 100 MG PO BID Prescribed by: NORIS DOHERTY on 11/05/182008 Nitroglycerin 0.4 Mg Tab.subl, 0.4 MG SL PRN 1 TAB SUBLINGUAL Q5MIN. RETURN TO THE ER IF YOUR CHEST PAIN CONTINUES OR IS UNRESPLVED. Prescribed by: SHALOM RAMÍREZ on 08/20/17 1350 Omeprazole 20 Mg Capsule.dr, 20 MG PO DAILY, (Reported) LAST FILLED #30 04-15-17 Ondansetron 8 Mg Tab.rapdis, 8 MG PO Q6H Prescribed by: NORIS DOHERTY on 11/05/182008 Warfarin Sodium 5 Mg Tablet, 5 MG PO DAILY, (Reported) Patient Home Medication List Home Medication List Reviewed: Yes Review of Systems Review of Systems Constitutional: no symptoms reported EENTM: no symptoms reported Respiratory: short of breath Cardiovascular: chest pain Gastrointestinal: no symptoms reported Genitourinary: no symptoms reported Musculoskeletal: no symptoms reported Skin: no symptoms reported Psychiatric/Neurological: No Symptoms Reported All Other Systems Reviewed Negative Unless Noted: Yes Past Csedgle-Ujetka-Nhevbi Hx Patient Social History Type Used: Cigarettes 2nd Hand Smoke Exposure: Yes Recent Foreign Travel: No Contact w/Someone Who Travel: No Recent Hopitalizations: No Immunizations Up To Date Tetanus Booster (TDap): Less than 5yrs PED Vaccines UTD: Yes Date of Pneumonia Vaccine: Aug 17, 2012 Date of Influenza Vaccine: May 06, 2012 Seasonal Allergies Seasonal Allergies: No Past Medical History Surgeries: Yes Appendectomy, Cardiac, Coronary Stent, Gallbladder, Hysterectomy, Orthopedic, Thyroidectomy Respiratory: Yes (HAS CPAP--DOES NOT USE ON REGULAR BASIS; P.E. X2) Asthma, Pulmonary Embolism, Sleep Apnea Currently Using CPAP: No Currently Using BIPAP: No Cardiac: Yes (P.E. 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 Sexually Transmitted Disease: No HIV/AIDS: No Genitourinary: Yes Bladder Infection, Kidney Stones Gastrointestinal: Yes (S/P GENI) Gastroesophageal Reflux, Chronic Constipation, Gall Bladder Disease Musculoskeletal: Yes Degenerate Disk Disease, Arthritis, Back Injury, Chronic Back Pain, Spasms Endocrine: Yes (MORBID OBESITY; THYROIDECTOMY) Hypothyroidsim HEENT: Yes Loss of Vision: Bilateral Hearing Impairment: Denies Cancer: No Colon Psychosocial: No Integumentary: No Blood Disorders: Yes (BLOOD CLOTS-DVT/P.E.'S) Adverse Reaction/Blood Tranf: No Family Medical History Arthritis G8 SISTER Cardiovascular disease 03 FATHER Colon cancer 03 MOTHER Completed stroke 03 MOTHER Hypertension 03 MOTHER G8 BROTHER Myocardial infarction 03 MOTHER Thyroid disease G8 SISTER Physical Exam Vital Signs Vital Signs - First Documented 11/17/19 11/17/19 15:24 15:30 Temp 36.6 Pulse 78 Resp 16 B/P (MAP) 138/91 (107) Pulse Ox 95 O2 Delivery Room Air Capillary Refill : Height, Weight, BMI Height: 5'2.00" Weight: 297lbs. 8.0oz. 134.306201if; 54.00 BMI Method:Stated General Appearance: No Apparent Distress, WD/WN HEENT: PERRL/EOMI Neck: Supple Respiratory: No Respiratory Distress Cardiovascular: Regular Rate, Rhythm Gastrointestinal: Non Tender, Soft Back: Normal Inspection Extremity: Normal Capillary Refill, No Pedal Edema Neurologic/Psychiatric: Alert, Oriented x3 Skin: Warm/Dry Progress/Results/Core Measures Suspected Sepsis SIRS Temperature: Pulse: Respiratory Rate: Laboratory Tests 11/17/19 15:30: White Blood Count 10.2 Blood Pressure / Mean: Laboratory Tests 11/17/19 15:30: Creatinine 0.87, INR Comment 1.4, Platelet Count 223, Total Bilirubin 0.3 Results/Orders Lab Results Laboratory Tests Test 11/17/19 15:30 Range/Units White Blood Count 10.2 4.3-11.0 10^3/uL Red Blood Count 4.44 4.35-5.85 10^6/uL Hemoglobin 13.2 11.5-16.0 G/DL Hematocrit 41 35-52 % Mean Corpuscular Volume 92 80-99 FL Mean Corpuscular Hemoglobin 30 25-34 PG Mean Corpuscular Hemoglobin Concent 32 32-36 G/DL Red Cell Distribution Width 14.7 H 10.0-14.5 % Platelet Count 223 130-400 10^3/uL Mean Platelet Volume 10.8 H 7.4-10.4 FL Neutrophils (%) (Auto) 71 42-75 % Lymphocytes (%) (Auto) 22 12-44 % Monocytes (%) (Auto) 6 0-12 % Eosinophils (%) (Auto) 1 0-10 % Basophils (%) (Auto) 0 0-10 % Neutrophils # (Auto) 7.3 1.8-7.8 X 10^3 Lymphocytes # (Auto) 2.2 1.0-4.0 X 10^3 Monocytes # (Auto) 0.6 0.0-1.0 X 10^3 Eosinophils # (Auto) 0.1 0.0-0.3 10^3/uL Basophils # (Auto) 0.0 0.0-0.1 10^3/uL Prothrombin Time 17.6 H 12.2-14.7 SEC INR Comment 1.4 0.8-1.4 Activated Partial Thromboplast Time 25 24-35 SEC Sodium Level 137 135-145 MMOL/L Potassium Level 4.0 3.6-5.0 MMOL/L Chloride Level 100 98-107 MMOL/L Carbon Dioxide Level 25 21-32 MMOL/L Anion Gap 12 5-14 MMOL/L Blood Urea Nitrogen 11 7-18 MG/DL Creatinine 0.87 0.60-1.30 MG/DL Estimat Glomerular Filtration Rate > 60 BUN/Creatinine Ratio 13 Glucose Level 178 H 70-105 MG/DL Calcium Level 9.4 8.5-10.1 MG/DL Corrected Calcium 9.5 8.5-10.1 MG/DL Total Bilirubin 0.3 0.1-1.0 MG/DL Aspartate Amino Transf (AST/SGOT) 26 5-34 U/L Alanine Aminotransferase (ALT/SGPT) 22 0-55 U/L Alkaline Phosphatase 103 40-136 U/L Troponin I < 0.30 <0.30 NG/ML Pro-B-Type Natriuretic Peptide 35.8 <75.0 PG/ML Total Protein 7.2 6.4-8.2 GM/DL Albumin 3.9 3.2-4.5 GM/DL Lipase 48 8-78 U/L My Orders Orders - NATALIYA GUAMAN DO Iv/Invasive Line Insertion .IV start (11/17/19 15:34) Cbc With Automated Diff (11/17/19 15:34) Comprehensive Metabolic Panel (11/17/19 15:34) Chest 1 View Ap/Pa Only (11/17/19 15:34) Troponin I Fs (11/17/19 15:34) Partial Thromboplastin Time (11/17/19 15:34) Probnp Fs (11/17/19 15:34) Protime With Inr (11/17/19 15:34) Lipase (11/17/19 15:34) Aspirin Chewable Tablet (Baby Aspirin Ch (11/17/19 15:45) Nitroglycerin 0.4 Mg Btl 25's (Nitrostat (11/17/19 16:00) Enoxaparin Injection (Lovenox Injection) (11/17/19 17:15) Fibrin Degradation Products (11/17/19 17:14) Medications Given in ED Current Medications Medications Dose Ordered Sig/Marcio Route Start Time Stop Time Status Last Admin Dose Admin Aspirin 324 mg ONCE ONCE PO 11/17/19 15:45 11/17/19 15:46 DC 11/17/19 15:42 324 MG Nitroglycerin 0.4 mg NEEDED PRN SL 11/17/19 16:00 11/17/19 17:05 0.4 MG Vital Signs/I&O 11/17/19 11/17/19 15:24 15:30 Temp 36.6 Pulse 78 Resp 16 B/P (MAP) 138/91 (107) Pulse Ox 95 O2 Delivery Room Air Room Air Capillary Refill : Progress Note : Progress Note No obvious acute ischemic changes on the EKG. I will give her aspirin nitroglycerin check labs chest x-ray and reassess. Patient's chest pain did go from down from an 8 to a 5 with the nitroglycerin however she said it returned again and she was given more nitroglycerin and it took her pain down again. Given her heart score of 5 and her persistent pain recommended admission to the hospital and she wanted to go to [facility] however I called them and they said that they're completely at capacity and she was agreeable to being transferred to [facility] so I spoke to Dr. Reynoso and she is willing to accept patient. I spoke to the deliverer merchandise Dr. Melara and he recommended I give her a Lovenox shot check a d-dimer and to be willing to evaluate her at [facility]. Patient transferred in stable condition. Departure Impression Primary Impression: Chest pain Qualified Codes: R07.9 - Chest pain, unspecified Disposition: ADMITTED INPATIENT Condition: Improved Transfer Transfer Reason: Exceeds level of care Transfer Facility: [facility] Method of Transfer: EMS Departure-Patient Inst. Referrals: NO,LOCAL PHYSICIAN (PCP) Primary Care Physician NATALIYA GUAMAN DO Nov 17, 2019 15:34
[2019-11-17 15:42] LABS: HEMATOCRIT 41 % (35-52); HEMOGLOBIN 13.2 G/DL (11.5-16.0); MEAN CORPUSCULAR HEMOGLOBIN 30 PG (25-34); MEAN CORPUSCULAR HGB CONC 32 G/DL (32-36); MEAN CORPUSCULAR VOLUME 92 FL (80-99); MEAN PLATELET VOLUME 10.8 FL (7.4-10.4); PLATELET COUNT 223 10^3/uL (130-400); RED CELL DISTRIBUTION WIDTH 14.7 % (10.0-14.5); WHITE BLOOD COUNT 10.2 10^3/uL (4.3-11.0)
[2019-11-17 15:43] LABS: BASOPHILS % (AUTO) 0 % (0-10); EOSINOPHILS # (AUTO) 0.1 10^3/uL (0.0-0.3); EOSINOPHILS % (AUTO) 1 % (0-10); LYMPHOCYTES # (AUTO) 2.2 X 10^3 (1.0-4.0); LYMPHOCYTES % (AUTO) 22 % (12-44); MONOCYTES # (AUTO) 0.6 X 10^3 (0.0-1.0); MONOCYTES % (AUTO) 6 % (0-12); NEUTROPHILS # (AUTO) 7.3 X 10^3 (1.8-7.8); NEUTROPHILS % (AUTO) 71 % (42-75)
[2019-11-17] MEDS ORDERED: ASPIRIN 81 MG CHEW (CHILDREN'S ASA) PO ONE (15:45)
[2019-11-17 15:54] LABS: INR 1.4 (0.8-1.4); PROTHROMBIN TIME PATIENT 17.6 SEC (12.2-14.7)
[2019-11-17 16:01] LABS: CARBON DIOXIDE 25 MMOL/L (21-32); CHLORIDE 100 MMOL/L (98-107); SODIUM 137 MMOL/L (135-145)
[2019-11-17 16:02] LABS: ALANINE AMINOTRANSFERASE 22 U/L (0-55); ALBUMIN 3.9 GM/DL (3.2-4.5); ALKALINE PHOSPHATASE 103 U/L (40-136); BILIRUBIN,TOTAL 0.3 MG/DL (0.1-1.0); CALCIUM 9.4 MG/DL (8.5-10.1); GLUCOSE 178 MG/DL (70-105); LIPASE 48 U/L (8-78); TOTAL PROTEIN 7.2 GM/DL (6.4-8.2)
[2019-11-17] MEDS: NITROGLYCERIN 0.4 MG SL TABS BTL 25'S SL PRN ×2 (16:12→17:05)
--- NOTE | 2019-11-17 16:15 | Diagnostic Imaging Report ---
INDICATION: Chest pain. EXAMINATION: Portable chest at 4:06 p.m. FINDINGS: Heart size and pulmonary vascularity are normal. Lungs are clear. There are no effusions or pneumothoraces. IMPRESSION: Negative chest. Dictated by: Dictated on workstation # [id number]
[2019-11-17 16:17] LABS: BUN/CREATININE RATIO 13; CREATININE SERUM 0.87 MG/DL (0.60-1.30); GFR ESTIMATED > 60
[2019-11-17] MEDS ORDERED: ENOXAPARIN 60 MG/0.6 ML (LOVENOX) SYR SC ONE ×2 (17:15→23:15)
--- NOTE | 2019-11-17 18:12 | NUR ---
REPORT RECEIVED FROM KARINA SANTILLAN RN. PT IN ROUTE FROM FS
--- OUTSIDE RECORDS SUMMARY | 2019-11-17 18:57 | XMS REPORT | Encounter Summary ---
Author Author [facility] Organization [facility] Address Unknown Phone Unavailable Care Team Providers Care Motorboat Mechanic Inboard Name Role Phone GibsonVaughn delgado PCP Encounter Details Care Team Description Date Type Department Geni Harris NP [address] [place] [address] 03/02/2017 Documentation [facility] Neurol ogy [address] [place], [place] [id number] Social History Date Tobacco Use Types Packs/Day [...] 11:52 AM CDT We received records from [facility] in [place], [place]. On review of h er chart [...] of this new daily headache. Geni Kjelshus STEAM FITTER documented in this encounter Plan of Treatment Not on filedocumented as of this encounter Visit Diagnoses Not on filedocumented in this encounter
--- OUTSIDE RECORDS SUMMARY | 2019-11-17 18:57 | XMS REPORT | Encounter Summary ---
Author Author [facility] Organization [facility] Address Unknown Phone Unavailable Care Team Providers Care Ski Patrol Officer Name Role Phone Vaughn Gibson PCP Encounter Details Care Team Description Date Type Department Iiams, NILESH Vasquez Intractable migraine without aura and wi th status migrainosus; Migraine without aura and without status migrainosus, not intractable 02/13/2017 Orders Only [facility] Neurol ogy [address] [place] [id number] Social History Date Tobacco Use Types Packs/Day [...]
--- OUTSIDE RECORDS SUMMARY | 2019-11-17 18:57 | XMS REPORT | Clinical Summary ---
Author Author [facility] Organization [facility] Address Unknown Phone Unavailable Care Team Providers Care Director Camp Name Role Phone Zena Ferrera RN Unavailable Unavailable Raman Haskins MD Unavailable Jovanna Heath Unavailable Unavailable Tiny Courtney NP PCP Source Comments Some departments are not documenting in the electronic medical record. If you d o not see the information that you expected, contact Release of Information in [facility] [employer] Information Management department at [phone] for further assistan ce in locating additional records.[facility] Allergies Comments Active Allergy Reactions Severity [...] CDT Blood Pressure 76 03/23/2014 2:06 PM OIL FIELD ROUSTABOUT Pulse 37 C (98.6 F) 01/21/2019 7:25 PM CDT Temperature - - Respiratory Rate 96% 01/22/2019 5:30 AM CDT Oxygen Saturation - - Inhaled Oxygen Concentration 147.1 kg (324 lb 3.2 oz) 03/23/2014 2:06 PM OIL FIELD ROUSTABOUT Weight - - Height - - Body [...] xxxxxxxxxxx 2013- [place], [place] ([place]) [place], [place] [phone] Advance Directives 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
--- OUTSIDE RECORDS SUMMARY | 2019-11-17 18:57 | XMS REPORT | Encounter Summary ---
Author Author [facility] Organization [facility] Address Unknown Phone Unavailable Care Team Providers Care Pilot Steam Yacht Name Role Phone Vaughn Gibson PCP Encounter Details Care Team Description Date Type Department Geni Harris NP [address] [place] [address] 02/25/2017 Telephone [facility] [address] [place] [address] Social History Date Tobacco Use [...] to discuss next steps. Call patient at [phone] documented in this encounter Plan of Treatment Not on filedocumented as of this encounter Visit Diagnoses Not on filedocumented in this encounter
--- OUTSIDE RECORDS SUMMARY | 2019-11-17 18:57 | XMS REPORT | Encounter Summary ---
Author Author [facility] Organization [facility] Address Unknown Phone Unavailable Care Team Providers Care Supervisor Pumping Name Role Phone Vaughn Gibson PCP Reason for Visit * Reason Comments Topamax PA Encounter Details Care Team Description Date Type Department Geni Harris NP [address] [place], [place] [id number] Topamax PA 02/12/2017 Telephone [facility] ogy [address] [place] [address] Social History Date Tobacco Use Types Packs/Day [...] - 02/12/2017 2:45 PM CDT Called insurance ([phone]) to initiate PA for Topamax. . They [...]
--- OUTSIDE RECORDS SUMMARY | 2019-11-17 18:57 | XMS REPORT | Encounter Summary ---
Author Author [facility] Organization [facility] Address Unknown Phone Unavailable Care Team Providers Care Grades 1 Through 6 Teacher Name Role Phone Vaughn Gibson PCP Reason for Visit * Reason Comments Headache Establish Care * Consultation (Routine) Referred By Contact Referred To Contact Status Reason Specialty Diagnoses / Procedures Vaughn Gibson, CHELA [address] [place] [address] [facility] [address] [place] [address] Closed Specialty Services Neurology Diagnoses Required Intractable migraine without aura and with status migrainosus Encounter Details Care Team Description Date Type Department Vaughn Gibson, ENTRY LEVEL MANAGER [address] [place] [address] [phone] Geni Harris NP [address] [place] [address] [phone] Intractable migraine without aura and wi th status migrainosus; Migraine without aura and without status migrainosus, not intractable 02/12/2017 Initial consult [facility] [address] [facility] [address] [place] [address] Social History Date Tobacco Use Types Packs/Day [...] Harris NP - 02/12/2017 12:30 PM CDT [facility] Date: 02/12/17 Patient Name: [...] sharp intense pain located in the right samaritan, left pa rietal or left occiput. The [...] she went to the emergency room in [facility]. There she states she had CT imaging [...] she went to the emergency room in [place] and improved with therapy there b ut only temporarily as well. She did see an commercial loan reviewer and had a dilated e ye exam [...] back pain and she will take the [place] as neededfor treatment. She is on Coumadin [...] Social History Narrative None Geni Blanco APRN [facility] [place] [address] [address] (phone) [phone] (fax) documented in this encounter Plan of [...]
--- OUTSIDE RECORDS SUMMARY | 2019-11-17 18:57 | XMS REPORT | Encounter Summary ---
Author Author [facility] Organization [facility] Address Unknown Phone Unavailable Care Team Providers Care Sulfuric Acid Plant Supervisor Name Role Phone Vaughn Gibson PCP Encounter Details Care Team Description Date Type Department Geni Harris NP [address] [place] [address] 02/12/2017 Telephone [facility] o[facility] [address] [place] [address] Social History Date Tobacco Use [...]
--- OUTSIDE RECORDS SUMMARY | 2019-11-17 18:57 | XMS REPORT | Clinical Summary ---
Author Author [facility] Organization [facility] Address Unknown Phone Unavailable Care Team Providers Care Band Sawyer Name Role Phone Gibson, Vuaghn PCP Allergies Comments Active Allergy Reactions Severity [...] (1 of 2) 12/10/2007 Influenza Vaccine (#1) 2020 Pneumococcal Vaccine: Aged Out No longer eligib le based on patient's age to Pediatrics (0 to 5 Years) complete this topic and At-Risk Patients (6 to 64 Years) Results Not on filefrom Last 3 Months Insurance Type Payer Benefit Subscriber ID Effective Phone Address Plan / Dates Group Medicare MEDICARE MEDICARE xxxxxxxxxx 2008-P [place] PART A B [id number] [place] (Home) [place] [id number] 1 Anca Jordan Personal/F Self 1955 [address] [place] [address] (Home) [place] [id number] 1 Anca Jordan Abhay Personal/F Self 1955 [address] [place] [address] (Home) [place] [id number] Advance Directives For more information, please contact: [phone] Patient Hat Measurer Explanation Type Date Recorded Advance Directives and Living Will Power of Sweetbread Trimmer
--- OUTSIDE RECORDS SUMMARY | 2019-11-17 18:57 | XMS REPORT | Encounter Summary ---
Author Author [facility] Organization [facility] Address Unknown Phone Unavailable Care Team Providers Care Physical Therapy Director Name Role Phone GibsonVaughn PCP Reason for Visit * Reason Comments Headache follow up Encounter Details Care Team Description Date Type Department Geni Harris NP [address] [address] [phone] Chronic migraine without aura without st atus migrainosus, not intractable (Primary Dx) 03/13/2017 Office [place] [facility] [place] [address] [facility] [address] [place] [address] Social History Date Tobacco Use Types Packs/Day [...] Harris NP - 03/13/2017 3:15 PM CDT [facility] Date: 03/13/17 Patient Name: [...] On review of her medical records from [facility], there were multiple concerns of the pa [...] without aura without status migrainosus, not intractable [place] GRAINE WITHOUT AURA, NOT REFRACTORY divalproex (ROSSY [...] Social History Narrative None Geni Blanco APRN [address] [address] (phone) [phone] (fax) documented in this encounter Plan of Treatment Not on filedocumented as of this encounter Visit Diagnoses Diagnosis Chronic migraine without aura without s tatus migrainosus, not intractable documented in this encounter
--- OUTSIDE RECORDS SUMMARY | 2019-11-17 18:57 | XMS REPORT | Encounter Summary ---
Author Author [facility] Organization [facility] Address Unknown Phone Unavailable Care Team Providers Care Welder Apprentice Combination Name Role Phone Vaughn Gibson PCP Reason for Referral * Consultation (Routine) Referred By Contact Referred To Contact Status Reason Specialty Diagnoses / Procedures Vaughn Gibson APRN [address] [place] [address] [facility] [address] [facility] [address] [place] [address] Closed Specialty Services Neurology Diagnoses Required Intractable migraine without aura and with status migrainosus Encounter Details Care Team Description Date Type Department Vaughn Gibson APRN [address] [place], [place] [id number] Intractable migraine without aura and wi th status migrainosus (Primary Dx) 02/03/2017 Transcribe [facility] Neu[facility] Orders [address] [id number] Social History Date Tobacco Use Types Packs/Day [...]
--- NOTE | 2019-11-17 19:05 | NUR ---
OTONIEL DUNAWAY admitted to room 407-1, with an admitting diagnosis of CHEST PAIN, on 11/17/[address] [facility] via [facility], accompanied by EMS.OTONIEL DUNAWAY introduced to surroundings, call light, bed controls, phone, TV, temperature control, lights, meal times, smoking policy, visitor policy, side rail policy, bathrooms and showers. Patient Rights given to patient in the handbook. OTONIEL DUNAWAY verbalizes understanding that [facility] is not responsible for the loss or damage to any personal effects or valuables that are kept in the patients possession during their hospitalization.
--- OUTSIDE RECORDS SUMMARY | 2019-11-17 19:13 | XMS REPORT ---
Author Author Anca Lucero Doctor Organization [facility] Address Unknown Phone Unavailable Care Team Providers Care Dam Attendant Name Role Phone Migration, Doctor Unavailable Unavailable PROBLEMS Type Condition ICD9-CM Code SAH12-ME Code Onset Dates Condition S tatus SNOMED Code Problem Generalized anxiety disorder F41.1 Apr, 200 8 Active 03860359 Problem Esophageal reflux K21.9 Active 24 2008462 Problem Dyslipidemia E78.5 12 Oct, 2017 Active 3709 70912 Problem Unspecified hypothyroidism E03.9 Act hernesto 39849556 Problem Pulmonary embolus I26.99 13 Oct, 2011 Active 73033763 Problem Nonintractable migraine G43.009 08 Oct, 2015 Act hernesto 594156959 Problem Pre-diabetes R73.03 Active 7549321 02 Problem Morbid obesity with BMI of 50.0-59.9, adult Z68.43 Active 212374393 Problem Renal stones N20.0 Active 0015428 7 Problem Personal history of pulmonary embolism Z86.711 Active 736105772 Problem Unspecified sleep apnea G47.30 Active 60542096 Problem TIA (transient ischemic attack) G45.9 Active 617162329 Problem Osteoarthritis of right knee M17.11 13 May, 201 0 Active 393559985 Problem Coronary artery disease I25.10 Active 70815814 Problem Hyperlipidemia LDL goal <70 E78.5 Ac tive 80609186 Problem Migraine with aura and without status migrainosu s, not intractable G43.109 Active 3353406 Problem Morbid obesity E66.01 Active 65046 6002 ALLERGIES No Information ENCOUNTERS Encounter Location Date Diagnosis [facility] [address] [facility] [id number] [address] [place] [address] Nov, Acute cystitis with hematuri a N30.01 ; Unspecified hypothyroidism E03.9 ; TIA (transient ischemic attack) G45.9 and Sprain of interphalangeal joint of right middle finger, initial encounter S63.632A [facility] [address] [facility] [id number] [address] [place] [address] Oct, [facility] [address] [id number] [address] [place] [address] September, [facility] [address] [id number] [address] [place] [address] September, [facility] [address] [id number] [address] [place] [address] September, [facility] [address] [id number] [address] [place] [address] Aug, [facility] [address] [id number] [address] [place] [address] Aug, History of recurrent UTIs Z8 7.440 and Personal history of pulmonary embolism Z86.711 [place] [address] [id number] [address] [place] [address] Jul, History of recurrent UTIs Z8 7.440 [place] [address] [id number] [address] [place] [address] 07 Jun, 2019 Personal history of pulmonar y embolism Z86.711 [place] [address] [id number] [address] [place] [address] 07 Jun, 2019 Personal history of pulmonar y embolism Z86.711 [place] [address] [id number] [address] [place] [address] May, [facility] [address] [id number] [address] May, 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 [id number] [address] [place] [address] Feb, Pre-diabetes R73.03 and Hype rlipidemia LDL goal <70 E78.5 [facility] [address] [facility] [id number] [address] [place] [address] Feb, [facility] [address] [facility] [id number] [address] [place] [address] Feb, [facility] [address] [facility] [id number] [address] [place] [address] Jan, [facility] [address] [id number] [address] [place] [address] Jan, [place] [address] [facility] [id number] [address] [place] [address] Jan, Encounter for Medicare annua l wellness exam Z00.00 ; Hyperlipidemia LDL goal <70 E78.5 ; Coronary artery disease I25.10 ; Hypothyroidism E03.9 ; Osteoarthritis of right knee M17.11 ; Morbid obesity with BMI of 50.0-59.9, adult Z68.43 and Esophageal reflux K21.9 [place] [id number] [facility] [id number] [address] [place] [address] Jan, Dysuria R30.0 and Hematuria, unspecified type R31.9 [place] [address] [facility] [id number] [address] [place] [address] Jan, Hematuria, unspecified type R31.9 [place] [address] [facility] [id number] [address] [place] [address] Dec, Hematuria, unspecified type R31.9 [facility] [address] [facility] [id number] [address] [place] [address] Nov, Hematuria, unspecified type R31.[address] [id number] [address] Nov, Other microscopic hematuria R31.29 [facility] [address] [facility] [id number] [address] [place] [address] Nov, Vaginal gena B37.3 ; Othe r microscopic hematuria R31.29 and Morbid obesity E66.01 [facility] [address] [facility] [id number] [address] [place] [address] Nov, [facility] [address] [facility] [id number] [address] [place] [address] Nov, [facility] [address] [facility] [id number] [place] [address] Nov, UTI symptoms R39.9 and Morbi d obesity E66.01 [facility] [address] [facility] [id number] [address] [place] [address] Nov, [facility] [address] [facility] [id number] [place] [address] September, [facility] [address] [place] [id number] [place] [address] September, [facility] [address] [place] [id number] [place] [address] Aug, Right foot pain M79.671 and Morbid obesity E66.01 [place] [address] [place] [id number] [place] [address] Jul, Right foot pain M79.671 and Morbid obesity E66.01 [facility] [address] [place] [id number] [address] [place] [address] Jul, Injury of right foot, initia l encounter S99.921A and Morbid obesity E66.01 [facility] [address] [place] [id number] [address] [place] [address] Jul, Recurrent syncope R55 and Mo rbid obesity E66.01 [facility] [address] [facility] [id number] [address] [place] [address] Jul, [facility] [address] [place] [id number] [address] [place] [address] Jun, Hematuria, unspecified type R31.9 and BMI 50.0-59.9, adult Z68.43 [facility] [address] [facility] [id number] [address] [place] [address] 07 Jun, [id number] [place] [address] 04 Jun, 2018 jail current use of ant icoagulant Z79.01 [facility] [address] [facility] [id number] [address] [place] [address] May, Ankle pain, right M25.571 an d BMI 50.0-59.9, adult Z68.43 [facility] [address] [facility] [id number] [address] [place] [address] May, [facility] [address] [facility] [id number] [address] [place] [address] May, [facility] [address] [facility] [id number] [address] [place] [address] Apr, [facility] [address] [facility] [id number] [address] [place] [address] Apr, [facility] [address] [facility] [id number] [address] [place] [address] Apr, [facility] [address] [facility] [id number] [address] [place] [address] Apr, BMI 50.0-59.9, adult Z68.43 and Weakness R53.1 [facility] [address] [facility] [id number] [address] [place] [address] Apr, [facility] [address] [facility] [id number] [address] [place] [address] Apr, Dysuria R30.0 ; Hematuria R3 1.9 ; Renal lithiasis N20.0 and BMI 50.0-59.9, adult Z68.43 [facility] [address] 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 ; Acute bilateral low back pain without sciatica M54.5 and BMI 50.0- 59.9, adult Z68.43 [place] [address] [address] 02 Mar, 2018 Hypothyroidism E03.9 [place] [address] [address] Feb, [facility] [place] [address] [address] 15 Jan, 2018 [place] [address] [address] 07 Jan, 2018 Acute non-recurrent maxillar y sinusitis J01.00 and BMI 50.0-59.9, adult Z68.43 [facility] [place] [address] [address] 04 Jan, 2018 Congestion of upper respirat ory tract J98.8 and BMI 50.0-59.9, adult Z68.43 [place] [address] [place] [id number] [address] [place] [address] Dec, Type 2 diabetes mellitus wit h diabetic neuropathic arthropathy, without long-term current use of insulin E11.610 ; Morbid obesity with BMI of 50.0-59.9, adult Z68.43 ; Hypothyroidism E03.9 ; Coronary artery disease I25.10 ; Hyperlipidemia LDL goal <70 E78.5 ; Right lower quadrant abdominal pain R10.31 and Acute cystitis with hematuria N30.01 [facility] [place] [address] [place] [id number] [address] [place] [address] Dec, Migraine with aura and witho ut status migrainosus, not intractable G43.109 ; Dehydration symptoms R63.8 and BMI 50.0-59.9, adult Z68.43 [place] [address] [address] Oct, [place] [address] [address] Oct, [place] [address] [address] Oct, [place] [address] [address] September, [place] [address] [address] September, Type 2 diabetes mellitus wit h diabetic neuropathic arthropathy, without long-term current use of insulin E11.610 ; Hyperlipidemia, unspecified hyperlipidemia type E78.5 ; Personal history of pulmonary embolism Z86.711 ; Coronary artery disease I25.10 and Hypothyroidism E03.9 [place] [address] [address] September, [place] [address] [address] Aug, Type 2 diabetes mellitus wit h [...] without aura and with status migrainosus G43.011 [place] [address] [address] Aug, [place] [address] [place] [id number] [address] [place] [address] Aug, [facility] [address] [address] 02 Jul, 2017 Renal stones N20.0 [facility] [address] [place] [id number] [address] [place] [address] Jun, Back pain M54.9 ; Kidney sto radha N20.0 and BMI 50.0-59.9, adult Z68.43 [facility] [address] [address] Jun, [facility] [address] [address] 18 Apr, 2017 [place] [address] [address] 15 Apr, 2017 [facility] [address] [address] 15 Apr, 2017 Right foot pain M79.671 ; Ac tangirnaq gout involving toe of right foot, 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 and Arthritis M19.90 [place] [address] [address] 06 Apr, 2017 Gastroesophageal reflux dise ase without esophagitis K21.9 [place] [address] [address] 16 Mar, 2017 Hypothyroidism, unspecified E03.9 [facility] [address] [address] Feb, [place] [address] [address] 25 Jan, 2017 Cervicalgia of occipito-atla nto-axial region M54.2 and Persistent headaches R51 [place] [address] [place] [id number] [address] [place] [address] 20 Jan, 2017 [facility] [address] [address] 12 Jan, 2017 Intractable migraine without aura and with status migrainosus G43.011 ; Cervical spine pain M54.2 ; Hyperlipidemia, unspecified hyperlipidemia type E78.5 ; Hypothyroidism E03.9 and Metabolic syndrome E88.81 [facility] [address] [address] 11 Jan, 2017 Hypothyroidism, unspecified E03.9 [place] [address] [address] Dec, Hypothyroidism, unspecified E03.9 [place] [address] [address] Dec, Hypothyroidism E03.9 [place] [address] [address] Nov, Laceration of left great toe w/o foreign body w/o damage to nail, initial encounter S91.112A [facility] [address] [address] Oct, Pain in left knee M25.562 an d Arthritis M19.90 [place] [address] [address] Oct, Hypothyroidism, unspecified E03.9 and Hyperlipidemia, unspecified hyperlipidemia type E78.5 [place] [address] [address] Oct, Gastroesophageal reflux dise ase without esophagitis K21.9 [place] [address] [address] 14 Oct, 2016 Metabolic syndrome E88.81 ; Personal history of pulmonary embolism Z86.711 ; Other specified hypothyroidism E03.8 and Hyperlipidemia, unspecified hyperlipidemia type E78.5 [facility] [address] [address] 13 Oct, 2017 Personal history of pulmonar y embolism Z86.711 ; Dysuria R30.0 ; Metabolic syndrome E88.81 ; Other specified hypothyroidism E03.8 ; Hyperlipidemia, unspecified hyperlipidemia type E78.5 and Morbid obesity with BMI of 50.0-59.9, adult Z68.43 [facility] [address] [address] September, [facility] [place] [address] [address] September, Wrist pain, left M25.532 and Acute pain of left knee M25.562 [place] [address] [address] Jul, Dysuria R30.0 [place] [address] [place] [id number] [place] [address] Jul, Dysuria R30.0 [place] [address] [address] Jul, Left lower quadrant pain R10 .32 [place] [address] [address] Jul, [place] [address] [address] Jul, Coronary artery disease I25. 10 ; Family history of diabetes mellitus Z83.3 ; Morbid obesity with BMI of 50.0-59.9, adult Z68.43 ; Metabolic syndrome E88.81 ; Personal history of pulmonary embolism Z86.711 ; Gastroesophageal reflux disease without esophagitis K21.9 ; Hypothyroidism, unspecified E03.9 ; Hyperlipidemia, unspecified hyperlipidemia type E78.5 and Left lower quadrant pain R10.32 [facility] [place] [address] [address] Jul, [facility] [place] [id number] [place] [address] Jul, Morbid obesity with BMI of 5 0.0-59.9, adult Z68.43 [facility] [place] [facility] [place] [address] [address] Jul, Generalized abdominal pain R 10.84 [facility] [place] [address] [address] 02 Jun, 2016 Muscle strain of right upper back, initial encounter S29.012A [facility] [place] [address] [address] May, Foreign body (FB) in soft ti ssue M79.5 [place] [address] [address] Mar, Hypothyroidism, unspecified E03.9 and Arthritis M19.90 [place] [address] [address] 13 Feb, 2016 Coronary artery disease I25. 10 ; Morbid obesity with BMI of 50.0- 59.9, adult Z68.43 ; Metabolic syndrome E88.81 ; Gastroesophageal reflux disease without esophagitis K21.9 ; Hypothyroidism, unspecified E03.9 ; Personal history of pulmonary embolism Z86.711 and Hyperlipidemia, unspecified hyperlipidemia type E78.5 [place] [address] [address] Feb, [facility] [place] [address] [address] Jan, Acute right-sided thoracic b ack pain M54.6 [place] [address] [address] Jan, Acute pain of left knee M25. 562 [place] [address] [address] Dec, Dysuria R30.0 ; Metabolic sy ndrome E88.81 ; Acute pain of left knee M25.562 ; Acute cystitis with hematuria N30.01 and Acute left eye pain H57.12 [place] [address] [address] Dec, [place] [address] [facility] [id number] [address] [place] [address] Dec, [place] [address] [facility] [id number] [address] [place] [address] Dec, Hypothyroidism, unspecified E03.9 [place] [address] [facility] [id number] [address] [place] [address] Dec, [place] [address] [place] [id number] [address] [place] [address] Nov, Peripheral edema R60.9 and A cute pain of left knee M25.562 [facility] [place] [address] [place] [id number] [place] [address] September, [place] [address] [address] September, Metabolic syndrome E88.81 an d Allergy, subsequent encounter T78.40XD [facility] [place] [address] [place] [id number] [address] [place] [address] September, Muscle strain T14.8 [place] [address] [place] [id number] [address] [place] [address] Aug, Chest pressure R07.89 ; [place] bolic syndrome E88.81 ; Morbid obesity with BMI of 50.0-59.9, adult Z68.43 ; Esophageal reflux 530.81 and Shortness of breath R06.02 [place] [address] [facility] [id number] [address] [place] [address] Aug, [place] [address] [facility] [id number] [address] [place] [address] Aug, [place] [address] [place] [id number] [address] [place] [address] Aug, Hypothyroidism, unspecified E03.9 [place] [address] [place] [id number] [address] [place] [address] Aug, Routine health maintenance Z 00.00 [facility] [address] [place] [id number] [address] [place] [address] Aug, [facility] [address] [address] Jul, Routine health maintenance Z 00.00 ; Family history of diabetes mellitus Z83.3 ; Family history of cancer Z80.9 and Morbid obesity with BMI of 50.0-59.9, adult Z68.43 [facility] [address] [place] [id number] [address] [place] [address] Jul, Allergic rhinitis J30.9 and Postnasal drip R09.82 [place] [address] [address] Jul, Influenza J11.1 [facility] [address] [address] Jul, Dysuria R30.0 [place] [address] [address] Apr, [place] [address] [address] Mar, Acute upper respiratory infe ction, unspecified J06.9 and Hypothyroidism E03.9 [place] [address] [address] Mar, [place] [address] [address] Feb, Coronary artery disease I25. 10 [place] [address] [address] Feb, Left foot pain M79.672 [place] [address] [place] [id number] [address] [place] [address] Jan, UTI (urinary tract infection ) 599.0 [place] [address] [place] [address] Jan, Urinary tract infection, sit e not specified 599.0 [facility] [address] [id number] [address] [place] [address] Jan, Urinary tract infection, sit e not specified 599.0 [facility] [address] [id number] [address] [place] [address] Jan, [facility] [address] [id number] [address] [place] [address] Dec, Headache 784.0 [facility] [address] [id number] [address] [place] [address] Dec, Urinary tract infection, sit e not specified 599.0 [place] [address] [id number] [address] [place] [address] Dec, Urinary tract infection, sit e not specified 599.0 [facility] [address] [id number] [address] [place] [address] Dec, Urinary tract infection, sit e not specified 599.0 [place] [address] [id number] [address] [place] [address] Nov, Unspecified sleep apnea 780. 57 ; Encounter for long-term (current) use of anticoagulants V58.61 ; Routine general medical examination at health care facility V70.0 and Arthritis of both knees 716.96 [place] [address] [id number] [address] [place] [address] September, Cat bite of hand 882.0 and R ectal bleeding 569.3 [facility] [address] [id number] [address] [place] [address] Aug, [facility] [address] [facility] [id number] [address] [place] [address] Aug, [facility] [address] [id number] [address] [place] [address] Jul, [facility] [address] [id number] [address] [place] [address], [place] [address] Jul, [facility] [address] [id number] [address] [place] [address], [place] [id number] Jul, [facility] [address] [id number] [address] [place] [address], [place] [address] Jul, [facility] [address] [id number] [address] [place] [address], [place] [id number] Jul, [facility] [address] [id number] [address] [place] [address], [place] [id number] Jul, [facility] [address] [id number] [address] [place] [address], [place] [id number] Jul, [facility] [address] [id number] [address] [place] [address], [place] [id number] Jul, [facility] [address] [id number] [address] [place] [address], [place] [id number] May, [facility] [address] [id number] [address] [place] [address], [place] [address] May, [facility] [address] [id number] [address] [place] [address], [place] [address] May, [facility] [address] [id number] [address] [place] [address], [place] [id number] May, [facility] [address] [id number] [address] [place] [address], [place] [address] May, [facility] [address] [id number] [address] [place] [address], [place] [address] May, [facility] [address] [id number] [address] [place] [address], [place] [address] May, [facility] [address] [id number] [address] [place] [address], [place] [address] Mar, [facility] [address] [id number] [address] [place] [address] [address] Mar, [facility] [address] [address] [id number] [address] [place] [address], [place] [address] 08 Jan, 2013 [facility] [address] [id number] [address] [place] [address], [place] [address] Jan, 2013 [facility] [address] [id number] [address] [place] [address], [place] [address] Jan, 2013 [facility] [address] [id number] [address] [place] [address], [place] [address] Jan, 2013 [facility] [address] [id number] [address] [place] [address], [place] [address] Jan, [facility] [address] [id number] [address] [place] [address], [place] [address] Jan, [facility] [address] [id number] [address] [place] [address], [place] [address] Dec, [facility] [address] [id number] [address] [place] [address], [place] [address] Dec, [facility] [address] [id number] [address] [place] [address], [place] [address] Dec, [facility] [address] [id number] [address] [place] [address], [place] [address] Dec, [facility] [address] [id number] [address] [place] [address], [place] [address] Dec, [facility] [address] [id number] [address] [place] [address], [place] [address] Dec, [facility] [address] [id number] [address] [place] [address], [place] [address] Dec, [facility] [address] [id number] [address] [place] [address], [place] [address] Dec, [facility] [address] [id number] [address] [place] [address], [place] [address] Dec, [facility] [address] [id number] [address] [place] [address], [place] [address] Dec, [facility] [address] [id number] [address] [place] [address], [place] [address] Nov, [facility] [address] [id number] [address] [place] [address], [place] [address] Nov, [facility] [address] [id number] [address] [place] [address], [place] [address] September, [facility] [address] [id number] [address] [place] [address], [place] [address] September, [facility] [address] [id number] [address] [place] [address], [place] [address] September, [facility] [address] [id number] [address] [place] [address], [place] [address] September, [facility] [address] [id number] [address] [place] [address], [place] [address] Aug, [facility] [address] [id number] [address] [place] [address], [place] [address] Aug, [facility] [address] [id number] [address] [place] [address], [place] [address] Aug, [facility] [address] [id number] [address] [place] [address], [place] [address] Aug, [facility] [address] [id number] [address] [place] [address], [place] [address] Aug, [facility] [address] [id number] [address] [place] [address], [place] [address] Aug, [facility] [address] [id number] [address] [place] [address], [place] [address] Aug, [facility] [address] [id number] [address] [place] [address], [place] [address] Aug, [facility] [address] [id number] [address] [place] [address], [place] [address] Aug, [facility] [address] [id number] [facility] [place] [address] Aug, [facility] [address] [id number] [address] [place] [address], [place] [address] Aug, [facility] [address] [id number] [address] [place] [address], [place] [address] Aug, [facility] [address] [id number] [address] [place] [address], [place] [address] Jul, [facility] [address] [id number] [address] [place] [address], [place] [address] Jul, [facility] [address] [id number] [address] [place] [address], [place] [address] Jul, [facility] [address] [id number] [address] [place] [address], [place] [address] Jul, [facility] [address] [id number] [address] [place] [address], [place] [address] Jul, [facility] [address] [id number] [address] [place] [address], [place] [address] Jul, [facility] [address] [id number] [address] [place] [address], [place] [address] Jul, [facility] [address] [id number] [address] [place] [address], [place] [address] Jul, [facility] [address] [id number] [address] [place] [address], [place] [address] Jul, [facility] [address] [id number] [address] [place] [address], [place] [address] Jul, [facility] [address] [id number] [address] [place] [address], [place] [address] Jun, [facility] [address] [id number] [address] [place] [address], [place] [address] Jun, [facility] [address] [id number] [address] [place] [address], [place] [address] Jun, [facility] [address] [id number] [address] [place] [address], [place] [address] Jun, [facility] [address] [id number] [address] [place] [address], [place] [address] Jun, [facility] [address] [id number] [address] [place] [address], [place] [address] Jun, [facility] [address] [id number] [address] [place] [address], [place] [address] Jun, [facility] [address] [id number] [address] [place] [address], [place] [address] Jun, [facility] [address] [id number] [address] [place] [address], [place] [address] Jun, [facility] [address] [id number] [address] [place] [address], [place] [address] Jun, [facility] [address] [id number] [address] [place] [address], [place] [address] Jun, [facility] [address] [id number] [address] [place] [address], [place] [address] Jun, [facility] [address] [id number] [address] [place] [address], [place] [address] May, [facility] [address] [id number] [address] [place] [address], [place] [address] May, [facility] [address] [id number] [address] [place] [address], [place] [address] May, [facility] [address] [id number] [address] [place] [address], [place] [address] May, [facility] [address] [id number] [address] [place] [address], [place] [address] May, [facility] [address] [id number] [address] [place] [address], [place] [address] May, [facility] [address] [id number] [address] [place] [address], [place] [address] May, [facility] [address] [id number] [address] [place] [address], [place] [address] May, [facility] [address] [id number] [address] [place] [address], [place] [address] May, [facility] [address] [id number] [address] [place] [address], [place] [address] May, [facility] [address] [id number] [address] [place] [address], [place] [address] May, [facility] [address] [id number] [address] [place] [address], [place] [address] May, [facility] [address] [id number] [address] [place] [address], [place] [address] May, [facility] [address] [id number] [address] [place] [address], [place] [address] May, [facility] [address] [id number] [address] [place] [address], [place] [address] May, [facility] [address] [id number] [address] [place] [address] Apr, [facility] [address] [id number] [address] [place] [address] Apr, [facility] [address] [id number] [address] [place] [address] Apr, [facility] [address] [id number] [address] [place] [address], [place] [address] Apr, [facility] [address] [id number] [address] [place] [address], [place] [address] Mar, [facility] [address] [id number] [address] [place] [address], [place] [address] Mar, [facility] [address] [id number] [address] [place] [id number] Mar, [facility] [address] [id number] [address] [place] [address], [place] [address] Mar, [facility] [address] [id number] [address] [place] [address] Mar, [facility] [address] [id number] [address] [place] [address], [place] [address] Mar, [facility] [address] [id number] [address] [place] [address] Mar, [facility] [address] [id number] [address] [place] [address], [place] [address] Mar, [facility] [address] [id number] [address] [place] [address], [place] [address] Mar, [facility] [address] [id number] [address] [place] [id number] Mar, [facility] [address] [id number] [address] [place] [address], [place] [address] Mar, [facility] [address] [id number] [address] [place] [address] Mar, [facility] [address] [id number] [address] [place] [address] Feb, [facility] [address] [id number] [address] [place] [id number] 18 Sep, 2012 [facility] [address] [id number] [address] [place] [address] 17 Sep, 2012 [facility] [address] [id number] [address] [place] [id number] 06 Sep, 2012 [facility] [address] [id number] [address] [place] [id number] 04 Sep, 2012 [facility] [address] [id number] [address] [place] [address] 03 Sep, 2012 [facility] [address] [id number] [address] [place] [address], [place] [address] Dec, [facility] [address] [id number] [address] [place] [address], [place] [address] Dec, [facility] [address] [id number] [address] [place] [address], [place] [address] Dec, [facility] [address] [id number] [address] [place] [address], [place] [address] Dec, [facility] [address] [id number] [address] [place] [address], [place] [address] Dec, [facility] [address] [id number] [address] [place] [address], [place] [address] Dec, [facility] [address] [id number] [address] [place] [address], [place] [address] Dec, [facility] [address] [id number] [address] [place] [address], [place] [address] Dec, [facility] [address] [id number] [address] [place] [address], [place] [address] Nov, [facility] [address] [id number] [address] [place] [address], [place] [address] Nov, [facility] [address] [id number] [address] [place] [address], [place] [address] Nov, [facility] [address] [id number] [address] [place] [address], [place] [address] Nov, [facility] [address] [id number] [address] [place] [address], [place] [address] Nov, [facility] [address] [id number] [address] [place] [address], [place] [address] Nov, [facility] [address] [id number] [address] [place] [address], [place] [address] Oct, [facility] [address] [id number] [place] [id number] Oct, [facility] [address] [id number] [place] [id number] Oct, [facility] [address] [id number] [place] [id number] Oct, [facility] [address] [id number] [place] [id number] Oct, [facility] [address] [id number] [address] [place] [address], [place] [address] Oct, [facility] [address] [id number] [address] [place] [address], [place] [address] Oct, [facility] [address] [id number] [address] [place] [address], [place] [address] Oct, [facility] [address] [id number] [address] [place] [address], [place] [address] Oct, [facility] [address] [id number] [address] [place] [address], [place] [address] Oct, [facility] [address] [id number] [address] [place] [address], [place] [address] Oct, [facility] [address] [id number] [address] [place] [address], [place] [address] September, [facility] [address] [id number] [address] [place] [address], [place] [address] Aug, [facility] [address] [id number] [address] [place] [address], [place] [address] Aug, [facility] [address] [id number] [address] [place] [address], [place] [address] Aug, [facility] [address] [id number] [address] [place] [address], [place] [address] Aug, [facility] [address] [id number] [address] [place] [address], [place] [address] Jul, [facility] [address] [id number] [address] [place] [address], [place] [address] Jul, [facility] [address] [id number] [address] [place] [address], [place] [address] 20 Jul, 2012 [facility] [address] [id number] [address] [place] [address], [place] [address] 05 Jul, 2012 [facility] [address] [id number] [address] [place] [address], [place] [address] 04 Jul, 2012 [facility] [address] [id number] [address] [place] [address], [place] [address] 19 Jun, 2012 [facility] [address] [id number] [address] [place] [address], [place] [address] Jun, [facility] [address] [id number] [address] [place] [address], [place] [address] Jun, [facility] [address] [id number] [address] [place] [address], [place] [address] May, [facility] [address] [id number] [address] [place] [address], [place] [address] 24 May, 2012 [facility] [address] [id number] [address] [place] [address], [place] [address] 14 May, 2012 [facility] [address] [id number] [address] [place] [address], [place] [address] May, [facility] [address] [id number] [address] [place] [address], [place] [address] May, [facility] [address] [id number] [address] [place] [address], [place] [address] May, [facility] [address] [id number] [address] [place] [address], [place] [address] Apr, [facility] [address] [id number] [address] [place] [address], [place] [address] 18 Apr, 2012 [facility] [address] [id number] [address] [place] [address], [place] [address] 13 Apr, 2012 [facility] [address] [id number] [address] [place] [address], [place] [address] 13 Apr, 2012 [facility] [address] [id number] [address] [place] [address], [place] [address] 13 Apr, 2012 [facility] [address] [id number] [address] [place] [address], [place] [address] Apr, [facility] [address] [id number] [address] [place] [address], [place] [address] Apr, [facility] [address] [id number] [address] [place] [address], [place] [address] Mar, [facility] [address] [id number] [address] [place] [address], [place] [address] Mar, [facility] [address] [id number] [address] [place] [address], [place] [address] Mar, [facility] [address] [id number] [address] [place] [address], [place] [address] Mar, [facility] [address] [id number] [address] [place] [address], [place] [address] 18 Jan, 2012 [facility] [address] [id number] [address] [place] [address], [place] [address] Jan, [facility] [address] [id number] [address] [place] [address], [place] [address] Jan, [facility] [address] [id number] [address] [place] [address], [place] [address] Jan, [facility] [address] [id number] [place] [id number] Dec, [facility] [address] [id number] [address] [place] [address], [place] [address] Dec, [facility] [place] [address] [id number] [place] [id number] Dec, [facility] [address] [id number] [address] [place] [address], [place] [address] Dec, [facility] [address] [facility] [id number] [address] [place] [phone] Dec, [facility] [address] [facility] [id number] [address] [place] [phone] Dec, [facility] [address] [facility] [id number] [address] [place] [phone] Nov, [facility] [address] [facility] [id number] [address] [place] [id number] Nov, [facility] [address] [facility] [id number] [address] [place] [phone] Nov, IMMUNIZATIONS No Known Immunizations SOCIAL HISTORY Never Assessed REASON FOR VISIT PLAN OF CARE VITAL SIGNS Height 62 in 2013-02-10 Weight 320.88 lbs 2013-02-10 Temperature 98.6 degrees Fahrenheit 2013-02-10 Heart Rate 80 bpm 2013-02-10 Respiratory Rate 18 2013-02-10 Blood pressure systolic 124 mmHg 2013-02-10 Blood pressure diastolic 76 mmHg 2013-02-10 MEDICATIONS No Known Medications RESULTS No Results PROCEDURES Procedure Date Ordered Result Body Site PROTHROMBIN TIME Feb 10, 2013 INSTRUCTIONS MEDICATIONS ADMINISTERED No Known Medications [...] asthma(493.90) Medical History Near syncope 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
--- OUTSIDE RECORDS SUMMARY | 2019-11-17 19:13 | XMS REPORT ---
Author Author Anca Lucero Doctor Organization [facility] Address Unknown Phone Unavailable Care Team Providers Care Transportation Supervisor Name Role Phone Migration, Doctor Unavailable Unavailable PROBLEMS Type Condition ICD9-CM Code XKD18-NN Code Onset Dates Condition S tatus SNOMED Code Problem Esophageal reflux K21.9 Active 24 5866066 Problem Dyslipidemia E78.5 12 Oct, 2017 Active 3709 89338 Problem Unspecified hypothyroidism E03.9 Act hernesto 33564720 Problem Generalized anxiety disorder F41.1 Apr, 200 8 Active 87490447 Problem Shortness of breath R06.02 Apr, Active 242727701 Problem Pulmonary embolus I26.99 13 Oct, 2011 Active 82009558 Problem Nonintractable migraine G43.009 08 Oct, 2015 Act hernesto 126472970 Problem Pre-diabetes R73.03 Active 4663277 02 Problem Morbid obesity with BMI of 50.0-59.9, adult Z68.43 Active 269251239 Problem Hypothyroidism E03.9 Active 81105 008 Problem Morbid obesity E66.01 Active 21934 6002 Problem Unspecified sleep apnea G47.30 Active 21257313 Problem Personal history of pulmonary embolism Z86.711 Active 153418812 Problem Osteoarthritis of right knee M17.11 13 May, 201 0 Active 490961274 Problem Renal stones N20.0 Active 6401497 7 Problem Coronary artery disease I25.10 Active 30363805 Problem Hyperlipidemia LDL goal <70 E78.5 Ac tive 62504396 Problem Migraine with aura and without status migrainosu s, not intractable G43.109 Active 7512417 ALLERGIES No Information ENCOUNTERS Encounter Location Date Diagnosis [facility] [address] [facility] [id number] [address] [place] [address] Nov, [facility] [address] [facility] [id number] [address] [place] [address] Oct, [facility] [address] [facility] [id number] [address] [place] [address] September, [facility] [address] [id number] [address] [place] [address] September, [facility] [address] [facility] [id number] [address] [place] [address] September, [facility] [address] [facility] [id number] [address] [place] [address] Aug, [place] [address] [id number] [address] [place] [address] Aug, History of recurrent UTIs Z8 7.440 and Personal history of pulmonary embolism Z86.711 [place] [address] [id number] [address] [place] [address] Jul, History of recurrent UTIs Z8 7.440 [place] [address] [facility] [id number] [address] [place] [address] 07 Jun, 2019 Personal history of pulmonar y embolism Z86.711 [place] [address] [id number] [address] [place] [address] 07 Jun, 2019 Personal history of pulmonar y embolism Z86.711 [place] [address] [facility] [id number] [address] [place] [address] May, [facility] [address] [id number] [address] May, 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 and Dizziness R42 [facility] [address] [facility] [id number] [address] [place] [address] Apr, Non-recurrent acute suppurat hernesto otitis media of both ears without spontaneous rupture of tympanic membranes H66.003 [facility] [address] [facility] [id number] [address] [place] [address] Feb, Pre-diabetes R73.03 and Hype rlipidemia LDL goal <70 E78.5 [place] [address] [facility] [id number] [address] [place] [address] Feb, [facility] [address] [facility] [id number] [address] [place] [address] Feb, [facility] [address] [facility] [id number] [address] [place] [address] 30 Jan, 2019 [facility] [address] [facility] [id number] [address] [place] [address] Jan, [place] [address] [facility] [id number] [address] [place] [address] 18 Jan, 2019 Encounter for Medicare annua l wellness exam Z00.00 ; Hyperlipidemia LDL goal <70 E78.5 ; Coronary artery disease I25.10 ; Hypothyroidism E03.9 ; Osteoarthritis of right knee M17.11 ; Morbid obesity with BMI of 50.0-59.9, adult Z68.43 and Esophageal reflux K21.9 [place] [address] [place] [id number] [address] [place] [address] Jan, Dysuria R30.0 and Hematuria, unspecified type R31.9 [place] [address] [facility] [id number] [address] [place] [address] Jan, Hematuria, unspecified type R31.9 [place] [address] [facility] [id number] [address] [place] [address] Dec, Hematuria, unspecified type R31.9 [place] [address] [facility] [id number] [address] [place] [address] Nov, Hematuria, unspecified type R31.[id number] [place] [address] Nov, Other microscopic hematuria R31.29 [facility] [address] [facility] [id number] [address] [place] [address] Nov, Vaginal gena B37.3 ; Othe r microscopic hematuria R31.29 and Morbid obesity E66.01 [place] [address] [facility] [id number] [address] [place] [address] Nov, [facility] [address] [place] [id number] [place] [address] Nov, [facility] [address] [place] [id number] [place] [address] Nov, UTI symptoms R39.9 and Morbi d obesity E66.01 [facility] [address] [address] Nov, [facility] [address] [address] September, [facility] [address] [address] September, [facility] [address] [address] Aug, Right foot pain M79.671 and Morbid obesity E66.01 [facility] [address] [address] Jul, Right foot pain M79.671 and Morbid obesity E66.01 [facility] [address] [address] Jul, Injury of right foot, initia l encounter S99.921A and Morbid obesity E66.01 [facility] [address] [address] Jul, Recurrent syncope R55 and Mo rbid obesity E66.01 [facility] [address] [place] [id number] [address] [place] [address] Jul, [facility] [address] [address] Jun, Hematuria, unspecified type R31.9 and BMI 50.0-59.9, adult Z68.43 [facility] [address] [address] Jun, [place] [facility] [address] [id number] [place] [address] Jun, 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 [facility] [address] [place] [id number] [address] [place] [address] May, Ankle pain, right M25.571 an d BMI 50.0-59.9, adult Z68.43 [facility] [address] [facility] [id number] [address] [place] [address] May, [facility] [id number] [place] [address] May, [facility] [address] [place] [id number] [address] [place] [address] Apr, [place] [address] [place] [id number] [address] [place] [address] Apr, [facility] [address] [place] [id number] [address] [place] [address] Apr, [facility] [address] [place] [address] Apr, BMI 50.0-59.9, adult Z68.43 and Weakness R53.1 [facility] [address] [place] [id number] [address] [place] [address] Apr, [facility] [address] [place] [id number] [address] [place] [address] Apr, Dysuria R30.0 ; Hematuria R3 1.9 ; Renal lithiasis N20.0 and BMI 50.0-59.9, adult Z68.43 [facility] [address] [place] [id number] [address] [place] [address] Apr, [facility] [address] [place] [id number] [address] [place] [address] Apr, [facility] [address] [address] 05 Apr, 2018 Hypothyroidism E03.[address] [address] 04 Apr, 2018 Burning with urination R30.0 ; Type 2 diabetes mellitus with diabetic neuropathic arthropathy, without long-term current use of insulin E11.610 ; Acute bilateral low back pain without sciatica M54.5 and BMI 50.0- 59.9, adult Z68.43 [place] [address] [address] 02 Mar, 2018 Hypothyroidism E03.[address] [address] Feb, [facility] [place] [address] [address] 15 Jan, [address] [address] 07 Jan, 2018 Acute non-recurrent maxillar y sinusitis J01.00 and BMI 50.0-59.9, adult Z68.43 [facility] [place] [address] [address] 04 Jan, 2018 Congestion of upper respirat ory tract J98.8 and BMI 50.0-59.9, adult Z68.[address] [address] Dec, Type 2 diabetes mellitus wit h diabetic neuropathic arthropathy, without long-term current use of insulin E11.610 ; Morbid obesity with BMI of 50.0-59.9, adult Z68.43 ; Hypothyroidism E03.9 ; Coronary artery disease I25.10 ; Hyperlipidemia LDL goal <70 E78.5 ; Right lower quadrant abdominal pain R10.31 and Acute cystitis with hematuria N30.01 [facility] [address] [address] Dec, Migraine with aura and witho ut status migrainosus, not intractable G43.109 ; Dehydration symptoms R63.8 and BMI 50.0-59.9, adult Z68.43 [place] [address] [address] Oct, [place] [address] [address] Oct, [place] [address] [address] Oct, [place] [address] [address] September, [address] [address] September, Type 2 diabetes mellitus wit h diabetic neuropathic arthropathy, without long-term current use of insulin E11.610 ; Hyperlipidemia, unspecified hyperlipidemia type E78.5 ; Personal history of pulmonary embolism Z86.711 ; Coronary artery disease I25.10 and Hypothyroidism E03.9 [place] [address] [address] September, [address] [address] Aug, Type 2 diabetes mellitus wit h [...] without aura and with status migrainosus G43.011 [place] [address] [address] Aug, [place] [address] [address] Aug, [place] [address] [place] [address] Jul, Renal stones N20.0 [facility] [address] [address] Jun, Back pain M54.9 ; Kidney sto radha N20.0 and BMI 50.0-59.9, adult Z68.43 [place] [address] [address] Jun, [place] [address] [address] Apr, [place] [address] [address] Apr, [place] [address] [address] Apr, Right foot pain M79.671 ; Ac ronnie gout involving toe of right foot, 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 and Arthritis M19.90 [facility] [address] [address] 06 Apr, 2017 Gastroesophageal reflux dise ase without esophagitis K21.9 [place] [address] [address] 16 Mar, 2017 Hypothyroidism, unspecified E03.9 [place] [address] [address] Feb, [place] [address] [address] 25 Jan, 2017 Cervicalgia of occipito-atla nto-axial region M54.2 and Persistent headaches R51 [place] [address] [address] 20 Jan, 2017 [place] [address] [address] 12 Jan, 2017 Intractable migraine without aura and with status migrainosus G43.011 ; Cervical spine pain M54.2 ; Hyperlipidemia, unspecified hyperlipidemia type E78.5 ; Hypothyroidism E03.9 and Metabolic syndrome E88.81 [place] [address] [address] Jan, Hypothyroidism, unspecified E03.9 [place] [address] [address] Dec, Hypothyroidism, unspecified E03.9 [place] [address] [address] Dec, Hypothyroidism E03.9 [place] [address] [address] Nov, Laceration of left great toe w/o foreign body w/o damage to nail, initial encounter S91.112A [facility] [address] [address] Oct, Pain in left knee M25.562 an d Arthritis M19.90 [place] [address] [address] Oct, Hypothyroidism, unspecified E03.9 and Hyperlipidemia, unspecified hyperlipidemia type E78.5 [place] [address] [address] Oct, Gastroesophageal reflux dise ase without esophagitis K21.9 [place] [address] [address] 14 Oct, 2016 Metabolic syndrome E88.81 ; Personal history of pulmonary embolism Z86.711 ; Other specified hypothyroidism E03.8 and Hyperlipidemia, unspecified hyperlipidemia type E78.5 [place] [address] [address] 13 Oct, 2016 Personal history of pulmonar y embolism Z86.711 ; Dysuria R30.0 ; Metabolic syndrome E88.81 ; Other specified hypothyroidism E03.8 ; Hyperlipidemia, unspecified hyperlipidemia type E78.5 and Morbid obesity with BMI of 50.0-59.9, adult Z68.43 [place] [address] [address] September, [facility] [place] [address] [address] September, Wrist pain, left M25.532 and Acute pain of left knee M25.[address] [address] Jul, Dysuria R30.[address] [address] Jul, Dysuria R30.0 [place] [address] [address] Jul, Left lower quadrant pain R10 .[address] [address] Jul, [place] [address] [address] Jul, Coronary artery disease I25. 10 ; Family history of diabetes mellitus Z83.3 ; Morbid obesity with BMI of 50.0-59.9, adult Z68.43 ; Metabolic syndrome E88.81 ; Personal history of pulmonary embolism Z86.711 ; Gastroesophageal reflux disease without esophagitis K21.9 ; Hypothyroidism, unspecified E03.9 ; Hyperlipidemia, unspecified hyperlipidemia type E78.5 and Left lower quadrant pain R10.32 [facility] [place] [address] [place] [id number] [address] [place] [address] Jul, [facility] [address] [address] Jul, Morbid obesity with BMI of 5 0.0-59.9, adult Z68.43 [facility] [place] [id number] [place] [address] Jul, Generalized abdominal pain R 10.84 [facility] [place] [address] [place] [id number] [address] [place] [address] 02 Jun, 2016 Muscle strain of right upper back, initial encounter S29.012A [facility] [place] [address] [address] May, Foreign body (FB) in soft ti ssue M79.5 [place] [address] [address] Mar, Hypothyroidism, unspecified E03.9 and Arthritis M19.90 [place] [address] [address] Feb, Coronary artery disease I25. 10 ; Morbid obesity with BMI of 50.0- 59.9, adult Z68.43 ; Metabolic syndrome E88.81 ; Gastroesophageal reflux disease without esophagitis K21.9 ; Hypothyroidism, unspecified E03.9 ; Personal history of pulmonary embolism Z86.711 and Hyperlipidemia, unspecified hyperlipidemia type E78.5 [place] [address] [address] Feb, [facility] [place] [address] [address] Jan, Acute right-sided thoracic b ack pain M54.[address] [address] Jan, Acute pain of left knee M25. 562 [place] [address] [address] 18 Dec, 2015 Dysuria R30.0 ; Metabolic sy ndrome E88.81 ; Acute pain of left knee M25.562 ; Acute cystitis with hematuria N30.01 and Acute left eye pain H57.12 [place] [address] [address] Dec, [place] [address] [address] Dec, [place] [address] [id number] [address] [place] [address] Dec, Hypothyroidism, unspecified E03.9 [place] [address] [id number] [address] [place] [address] Dec, [place] [address] [facility] [id number] [address] [place] [address] Nov, Peripheral edema R60.9 and A cute pain of left knee M25.562 [facility] [place] [address] [id number] [address] [place] [address] September, [place] [address] [facility] [id number] [address] [place] [address] September, Metabolic syndrome E88.81 an d Allergy, subsequent encounter T78.40XD [facility] [place] [address] [facility] [id number] [address] [place] [address] September, Muscle strain T14.8 [place] [address] [facility] [id number] [address] [place] [address] Aug, Chest pressure R07.89 ; [place] bolic syndrome E88.81 ; Morbid obesity with BMI of 50.0-59.9, adult Z68.43 ; Esophageal reflux 530.81 and Shortness of breath R06.02 [place] [address] [facility] [id number] [address] [place] [address] Aug, [place] [address] [facility] [id number] [address] [place] [address] Aug, [place] [address] [facility] [id number] [address] [place] [address] Aug, Hypothyroidism, unspecified E03.9 [place] [address] [facility] [id number] [address] [place] [address] Aug, Routine health maintenance Z 00.00 [facility] [place] [address] [facility] [id number] [address] [place] [address] Aug, [place] [id number] [place] [id number] [address] [place] [address] Jul, 2016 Routine health maintenance Z 00.00 ; Family history of diabetes mellitus Z83.3 ; Family history of cancer Z80.9 and Morbid obesity with BMI of 50.0-59.9, adult Z68.43 [facility] [address] [place] [id number] [address] [place] [address] Jul, Allergic rhinitis J30.9 and Postnasal drip R09.82 [place] [address] [place] [id number] [address] [place] [address] Jul, Influenza J11.1 [facility] [place] [address] [place] [id number] [address] [place] [address] 08 Jul, 2015 Dysuria R30.0 [place] [address] [place] [id number] [address] [place] [address] Apr, [place] [address] [address] Mar, Acute upper respiratory infe ction, unspecified J06.9 and Hypothyroidism E03.9 [place] [address] [place] [id number] [address] [place] [address] Mar, [place] [address] [place] [id number] [address] [place] [address] Feb, Coronary artery disease I25. 10 [place] [address] [place] [id number] [address] [place] [address] Feb, Left foot pain M79.672 [place] [address] [place] [id number] [address] [place] [address] Jan, UTI (urinary tract infection ) 599.0 [place] [address] [place] [id number] [address] [place] [address] Jan, Urinary tract infection, sit e not specified 599.0 [place] [address] [place] [id number] [address] [place] [address] Jan, Urinary tract infection, sit e not specified 599.0 [facility] [address] [facility] [id number] [address] [place] [address] Jan, [facility] [address] [facility] [id number] [address] [place] [address] Dec, Headache 784.0 [facility] [address] [facility] [id number] [address] [place] [address] Dec, Urinary tract infection, sit e not specified 599.0 [place] [address] [facility] [id number] [address] [place] [address] Dec, Urinary tract infection, sit e not specified 599.0 [place] [address] [place] [id number] [address] [place] [address] Dec, Urinary tract infection, sit e not specified 599.0 [place] [address] [place] [id number] [address] [place] [address] Nov, Unspecified sleep apnea 780. 57 ; Encounter for long-term (current) use of anticoagulants V58.61 ; Routine general medical examination at health care facility V70.0 and Arthritis of both knees 716.96 [place] [address] [place] [id number] [address] [place] [address] September, Cat bite of hand 882.0 and R ectal bleeding 569.3 [facility] [address] [place] [id number] [address] [place] [address] Aug, [facility] [address] [facility] [id number] [address] [place] [address] Aug, [place] [address] [place] [id number] [address] [place] [address] Jul, [facility] [address] [place] [id number] [address] [place] [address] Jul, [facility] [place] [facility] [address] [id number] [address] [place] [address], [place] [address] Jul, [facility] [address] [id number] [address] [place] [address], [place] [address] Jul, [facility] [address] [id number] [address] [place] [address], [place] [address] Jul, [facility] [address] [id number] [address] [place] [address], [place] [address] Jul, [facility] [address] [id number] [address] [place] [address], [place] [address] Jul, [facility] [address] [id number] [address] [place] [address], [place] [address] Jul, [facility] [address] [id number] [address] [place] [address], [place] [address] May, [facility] [address] [id number] [address] [place] [address], [place] [address] May, [facility] [address] [id number] [address] [place] [address], [place] [address] May, [facility] [address] [id number] [address] [place] [address], [place] [address] May, [facility] [address] [id number] [address] [place] [address], [place] [address] May, [facility] [address] [id number] [address] [place] [address], [place] [address] May, [facility] [address] [id number] [address] [place] [address], [place] [address] May, [facility] [address] [id number] [address] [place] [address], [place] [address] Mar, [facility] [address] [id number] [address] [place] [address], [place] [address] Mar, [facility] [address] [id number] [address] [place] [address], [place] [address] 08 Jan, 2014 [facility] [address] [id number] [address] [place] [address], [place] [address] 08 Jan, 2013 [facility] [address] [id number] [address] [place] [address], [place] [address] Jan, 2013 [facility] [address] [id number] [address] [place] [address], [place] [address] Jan, 2013 [facility] [address] [id number] [address] [place] [address], [place] [address] Jan, 2013 [facility] [address] [id number] [address] [place] [address], [place] [address] Jan, 2013 [facility] [address] [id number] [address] [place] [address], [place] [address] Dec, [facility] [address] [id number] [address] [place] [address], [place] [address] Dec, [facility] [address] [id number] [address] [place] [address], [place] [address] Dec, [facility] [address] [id number] [address] [place] [address], [place] [address] Dec, [facility] [address] [id number] [address] [place] [address], [place] [address] Dec, [facility] [address] [id number] [address] [place] [address], [place] [address] Dec, [facility] [address] [id number] [address] [place] [address], [place] [address] Dec, [facility] [address] [id number] [address] [place] [address], [place] [address] Dec, [facility] [address] [id number] [address] [place] [address], [place] [address] Dec, [facility] [address] [id number] [address] [place] [address], [place] [address] Dec, [facility] [address] [id number] [address] [place] [address], [place] [address] Nov, [facility] [address] [id number] [address] [place] [address], [place] [address] Nov, [facility] [address] [id number] [address] [place] [address], [place] [address] September, [facility] [address] [id number] [address] [place] [address], [place] [address] September, [facility] [address] [id number] [address] [place] [address], [place] [address] September, [facility] [address] [id number] [address] [place] [address], [place] [address] September, [facility] [address] [id number] [address] [place] [address], [place] [address] Aug, [facility] [address] [id number] [address] [place] [address], [place] [address] Aug, [facility] [address] [id number] [address] [place] [address], [place] [address] Aug, [facility] [address] [id number] [address] [place] [address], [place] [address] Aug, [facility] [address] [id number] [address] [place] [address], [place] [address] Aug, [facility] [address] [id number] [address] [place] [address], [place] [address] Aug, [facility] [address] [id number] [address] [place] [address], [place] [address] Aug, [facility] [address] [id number] [address] [place] [address], [place] [address] Aug, [facility] [address] [id number] [address] [place] [address], [place] [address] Aug, [facility] [address] [id number] [address] [place] [address], [place] [address] Aug, [facility] [address] [id number] [facility] [place] [address] 07 Aug, 2013 [facility] [address] [id number] [address] [place] [address], [place] [address] 07 Aug, 2013 [facility] [address] [id number] [address] [place] [address], [place] [address] Jul, [facility] [address] [id number] [address] [place] [address], [place] [address] Jul, [facility] [address] [id number] [address] [place] [address], [place] [address] Jul, [facility] [address] [id number] [address] [place] [address], [place] [address] Jul, [facility] [address] [id number] [address] [place] [address], [place] [address] Jul, [facility] [address] [id number] [address] [place] [address], [place] [address] Jul, [facility] [address] [id number] [address] [place] [address], [place] [address] 05 Jul, 2013 [facility] [address] [id number] [address] [place] [address], [place] [address] 05 Jul, 2013 [facility] [address] [id number] [address] [place] [address], [place] [address] Jul, [facility] [address] [id number] [address] [place] [address], [place] [address] Jul, [facility] [address] [id number] [address] [place] [address], [place] [address] Jun, [facility] [address] [id number] [address] [place] [address], [place] [address] Jun, [facility] [address] [id number] [address] [place] [address], [place] [address] 17 Jun, 2013 [facility] [address] [id number] [address] [place] [address], [place] [address] 17 Jun, 2013 [facility] [address] [id number] [address] [place] [address], [place] [address] Jun, [facility] [address] [id number] [address] [place] [address], [place] [address] Jun, [facility] [address] [id number] [address] [place] [address], [place] [address] Jun, [facility] [address] [id number] [address] [place] [address], [place] [address] Jun, [facility] [address] [id number] [address] [place] [address], [place] [address] Jun, [facility] [address] [id number] [address] [place] [address], [place] [address] Jun, [facility] [address] [id number] [address] [place] [address], [place] [address] Jun, [facility] [address] [id number] [address] [place] [address], [place] [address] Jun, [facility] [address] [id number] [address] [place] [address], [place] [address] May, [facility] [address] [id number] [address] [place] [address], [place] [address] May, [facility] [address] [id number] [address] [place] [address], [place] [address] May, [facility] [address] [id number] [address] [place] [address], [place] [address] May, [facility] [address] [id number] [address] [place] [address], [place] [address] May, [facility] [address] [id number] [address] [place] [address], [place] [address] May, [facility] [address] [id number] [address] [place] [address], [place] [address] May, [facility] [address] [id number] [address] [place] [address], [place] [address] May, [facility] [address] [id number] [address] [place] [address], [place] [address] May, [facility] [address] [id number] [address] [place] [address], [place] [address] May, [facility] [address] [id number] [address] [place] [address], [place] [address] May, [facility] [address] [id number] [address] [place] [address], [place] [address] May, [facility] [address] [id number] [address] [place] [address], [place] [address] May, [facility] [address] [id number] [address] [place] [address], [place] [address] May, [facility] [address] [id number] [address] [place] [address], [place] [address] May, [facility] [address] [id number] [address] [place] [address], [place] [address] Apr, [facility] [address] [id number] [address] [place] [address], [place] [address] Apr, [facility] [address] [id number] [address] [place] [address], [place] [address] Apr, [facility] [address] [id number] [address] [place] [address], [place] [address] Apr, [facility] [address] [id number] [address] [place] [address], [place] [address] Mar, [facility] [address] [id number] [address] [place] [address], [place] [address] Mar, [facility] [address] [id number] [address] [place] [address], [place] [address] Mar, [facility] [address] [id number] [address] [place] [address], [place] [address] Mar, [facility] [address] [id number] [address] [place] [address], [place] [address] Mar, [facility] [address] [id number] [address] [place] [address], [place] [address] Mar, [facility] [address] [id number] [address] [place] [address], [place] [address] Mar, [facility] [address] [id number] [address] [place] [address], [place] [address] Mar, [facility] [address] [id number] [address] [place] [address], [place] [address] Mar, [facility] [address] [id number] [address] [place] [address], [place] [address] Mar, [facility] [address] [id number] [address] [place] [address], [place] [address] Mar, [facility] [address] [id number] [address] [place] [address], [place] [address] Mar, [facility] [address] [id number] [address] [place] [address], [place] [address] Feb, [facility] [address] [id number] [address] [place] [address], [place] [address] 18 Jan, 2013 [facility] [address] [id number] [address] [place] [address], [place] [address] 17 Jan, 2013 [facility] [address] [id number] [address] [place] [address] 06 Jan, 2013 [facility] [address] [id number] [address] [place] [address], [place] [address] 04 Jan, 2013 [facility] [address] [id number] [address] [place] [address], [place] [address] 03 Jan, 2013 [facility] [address] [id number] [address] [place] [address], [place] [address] Dec, [facility] [address] [id number] [address] [place] [address], [place] [address] Dec, [facility] [address] [id number] [address] [place] [address], [place] [address] Dec, [facility] [address] [id number] [address] [place] [address], [place] [address] Dec, [facility] [address] [id number] [address] [place] [address], [place] [address] Dec, [facility] [address] [id number] [address] [place] [address], [place] [address] Dec, [facility] [address] [id number] [address] [place] [address], [place] [address] Dec, [facility] [address] [id number] [address] [place] [address], [place] [address] Dec, [facility] [address] [id number] [address] [place] [address], [place] [address] Nov, [facility] [address] [id number] [address] [place] [address], [place] [address] Nov, [facility] [address] [id number] [address] [place] [address], [place] [address] Nov, [facility] [address] [id number] [address] [place] [address], [place] [address] Nov, [facility] [address] [id number] [address] [place] [address], [place] [address] Nov, [facility] [address] [id number] [address] [place] [address], [place] [address] Nov, [facility] [address] [id number] [address] [place] [address], [place] [address] Oct, [facility] [address] [id number] [place] [id number] Oct, [facility] [address] [id number] [place] [id number] Oct, [facility] [address] [id number] [place] [id number] Oct, [facility] [address] [id number] [place] [id number] Oct, [facility] [address] [id number] [address] [place] [address], [place] [address] Oct, [facility] [address] [id number] [address] [place] [address], [place] [address] Oct, [facility] [address] [id number] [address] [place] [address], [place] [address] Oct, [facility] [address] [id number] [address] [place] [address], [place] [address] Oct, [facility] [address] [id number] [address] [place] [address], [place] [address] Oct, [facility] [address] [id number] [address] [place] [address], [place] [address] Oct, [facility] [address] [id number] [address] [place] [address], [place] [address] September, [facility] [address] [id number] [address] [place] [address], [place] [address] Aug, [facility] [address] [id number] [address] [place] [address], [place] [address] Aug, [facility] [address] [id number] [address] [place] [address], [place] [address] Aug, [facility] [address] [id number] [address] [place] [address], [place] [address] Aug, [facility] [address] [id number] [address] [place] [address], [place] [address] Jul, [facility] [address] [id number] [address] [place] [address], [place] [address] Jul, [facility] [address] [id number] [address] [place] [address], [place] [address] Jul, [facility] [address] [id number] [address] [place] [address], [place] [address] 05 Jul, 2012 [facility] [address] [id number] [address] [place] [address], [place] [address] 04 Jul, 2012 [facility] [address] [id number] [address] [place] [address], [place] [address] 19 Jun, 2012 [facility] [address] [id number] [address] [place] [address], [place] [address] 13 Jun, 2012 [facility] [address] [id number] [address] [place] [address], [place] [address] Jun, [facility] [address] [id number] [address] [place] [address], [place] [address] May, [facility] [address] [id number] [address] [place] [address], [place] [address] 24 May, 2012 [facility] [address] [id number] [address] [place] [address], [place] [address] 14 May, 2012 [facility] [address] [id number] [address] [place] [address], [place] [address] May, [facility] [address] [id number] [address] [place] [address], [place] [address] May, [facility] [address] [id number] [address] [place] [address], [place] [address] May, [facility] [address] [id number] [address] [place] [address], [place] [address] 18 Apr, 2012 [facility] [address] [id number] [address] [place] [address], [place] [address] 18 Apr, 2012 [facility] [address] [id number] [address] [place] [address], [place] [address] Apr, [facility] [address] [id number] [address] [place] [address], [place] [address] 13 Apr, 2012 [facility] [address] [id number] [address] [place] [address] Apr, [facility] [address] [id number] [address] [place] [address], [place] [address] Apr, [facility] [address] [id number] [address] [place] [address], [place] [address] Apr, [facility] [address] [id number] [address] [place] [address], [place] [address] Mar, [facility] [address] [id number] [address] [place] [address], [place] [address] Mar, [facility] [address] [id number] [address] [place] [address], [place] [address] Mar, [facility] [address] [id number] [address] [place] [address], [place] [address] Mar, [facility] [address] [id number] [address] [place] [address], [place] [address] 18 Jan, 2012 [facility] [address] [id number] [address] [place] [address], [place] [address] 10 Jan, 2012 [facility] [address] [id number] [address] [place] [address] 06 Jan, 2012 [facility] [address] [id number] [address] [place] [address] 06 Jan, 2012 [facility] [address] [id number] [place] [id number] Dec, [facility] [address] [id number] [address] [place] [address] Dec, [facility] [address] [id number] [place] [id number] Dec, [facility] [address] [id number] [address] [place] [address] Dec, [facility] [address] [id number] [address] [place] [address] Dec, [facility] [address] [id number] [address] [place] [address] Dec, [facility] [address] [facility] [id number] [address] [place] [address] Nov, [facility] [address] [facility] [id number] [address] [place] [address] Nov, [facility] [address] [facility] [id number] [address] [place] [address] Nov, IMMUNIZATIONS No Known Immunizations SOCIAL HISTORY Never Assessed REASON FOR VISIT PLAN OF CARE VITAL SIGNS Height 62 in 2013-01-12 Weight 324 lbs 2013-01-12 Temperature 98 degrees Fahrenheit 2013-01-12 Heart Rate 72 bpm 2013-01-12 Respiratory Rate 16 2013-01-12 Blood pressure systolic 124 mmHg 2013-01-12 Blood pressure diastolic 74 mmHg 2013-01-12 MEDICATIONS Unknown Medications RESULTS No Results PROCEDURES Procedure Date Ordered Result Body Site URINE CULTURE/COLONY COUNT Jan 12, 2013 PROTHROMBIN TIME Jan 12, 2013 URINALYSIS, AUTO, W/O SCOPE Jan 12, 2013 INSTRUCTIONS MEDICATIONS ADMINISTERED No Known Medications [...]
--- OUTSIDE RECORDS SUMMARY | 2019-11-17 19:14 | XMS REPORT ---
Author Author Anca Lucero Doctor Organization [facility] Address Unknown Phone Unavailable Care Team Providers Care Program Evaluation Consultant Name Role Phone Migration, Doctor Unavailable Unavailable PROBLEMS Type Condition ICD9-CM Code DSA21-RW Code Onset Dates Condition S tatus SNOMED Code Problem Esophageal reflux K21.9 Active 24 5927403 Problem Dyslipidemia E78.5 12 Oct, 2017 Active 3709 83439 Problem Unspecified hypothyroidism E03.9 Act hernesto 48688699 Problem Generalized anxiety disorder F41.1 Apr, 200 8 Active 85635869 Problem Shortness of breath R06.02 Apr, Active 744150502 Problem Pulmonary embolus I26.99 13 Oct, 2011 Active 48466775 Problem Nonintractable migraine G43.009 08 Oct, 2015 Act hernesto 150687282 Problem Pre-diabetes R73.03 Active 8956395 02 Problem Morbid obesity with BMI of 50.0-59.9, adult Z68.43 Active 650411048 Problem Hypothyroidism E03.9 Active 24935 008 Problem Morbid obesity E66.01 Active 93704 6002 Problem Unspecified sleep apnea G47.30 Active 31030885 Problem Personal history of pulmonary embolism Z86.711 Active 233741404 Problem Osteoarthritis of right knee M17.11 13 May, 201 0 Active 295915437 Problem Renal stones N20.0 Active 2870257 7 Problem Coronary artery disease I25.10 Active 74075661 Problem Hyperlipidemia LDL goal <70 E78.5 Ac tive 70790821 Problem Migraine with aura and without status migrainosu s, not intractable G43.109 Active 8007161 ALLERGIES No Information ENCOUNTERS Encounter Location Date Diagnosis [facility] [address] [facility] [id number] [address] [place] [address] Nov, [facility] [address] [facility] [id number] [address] [place] [address] Oct, [facility] [address] [facility] [id number] [address] [place] [address] September, [facility] [address] [id number] [address] [place] [phone] September, [facility] [address] [facility] [id number] [address] [place] [address] September, [facility] [address] [facility] [id number] [address] [place] [address] Aug, [place] [address] [id number] [address] [place] [address] Aug, History of recurrent UTIs Z8 7.440 and Personal history of pulmonary embolism Z86.711 [place] [address] [id number] [address] [place] [address] Jul, History of recurrent UTIs Z8 7.440 [place] [address] [facility] [id number] [address] [place] [phone] 07 Jun, 2019 Personal history of pulmonar y embolism Z86.711 [place] [address] [id number] [address] [place] [address] 07 Jun, 2019 Personal history of pulmonar y embolism Z86.711 [place] [address] [facility] [id number] [address] [place] [address] May, [facility] [address] [id number] [address] May, 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 and Dizziness R42 [facility] WALK IN [facility] [address] [facility] [id number] [address] [place] [address] Apr, Non-recurrent acute suppurat hernesto otitis media of both ears without spontaneous rupture of tympanic membranes H66.003 [facility] [address] [facility] [place] [id number] [address] [place] [address] Feb, Pre-diabetes R73.03 and Hype rlipidemia LDL goal <70 E78.5 [place] [address] [facility] [id number] [address] [place] [address] Feb, [facility] [address] [facility] [id number] [address] [place] [phone] Feb, [facility] [address] [facility] [id number] [address] [place] [address] 30 Jan, 2019 [facility] [address] [facility] [id number] [address] [place] [address] Jan, [place] [address] [facility] [id number] [address] [place] [address] 18 Jan, 2019 Encounter for Medicare annua l wellness exam Z00.00 ; Hyperlipidemia LDL goal <70 E78.5 ; Coronary artery disease I25.10 ; Hypothyroidism E03.9 ; Osteoarthritis of right knee M17.11 ; Morbid obesity with BMI of 50.0-59.9, adult Z68.43 and Esophageal reflux K21.9 [place] [address] [place] [id number] [address] [place] [address] Jan, Dysuria R30.0 and Hematuria, unspecified type R31.9 [place] [address] [facility] [id number] [address] [place] [address] Jan, Hematuria, unspecified type R31.9 [place] [address] [facility] [id number] [address] [place] [address] Dec, Hematuria, unspecified type R31.9 [place] [address] [facility] [id number] [address] [place] [address] Nov, Hematuria, unspecified type R31.[id number] [place] [address] Nov, Other microscopic hematuria R31.29 [facility] [address] [facility] [id number] [address] [place] [address] Nov, Vaginal gena B37.3 ; Othe r microscopic hematuria R31.29 and Morbid obesity E66.01 [place] [address] [facility] [id number] [address] [place] [address] Nov, [facility] [address] [place] [id number] [place] [address] Nov, [facility] [address] [place] [id number] [place] [address] Nov, UTI symptoms R39.9 and Morbi d obesity E66.01 [facility] [address] [address] Nov, [facility] [address] [address] September, [facility] [address] [address] September, [facility] [address] [address] Aug, Right foot pain M79.671 and Morbid obesity E66.01 [facility] [address] [address] Jul, Right foot pain M79.671 and Morbid obesity E66.01 [facility] [address] [address] Jul, Injury of right foot, initia l encounter S99.921A and Morbid obesity E66.01 [facility] [address] [address] Jul, Recurrent syncope R55 and Mo rbid obesity E66.01 [facility] [address] [place] [id number] [address] [place] [address] Jul, [facility] [address] [address] Jun, Hematuria, unspecified type R31.9 and BMI 50.0-59.9, adult Z68.43 [facility] [address] [address] Jun, [facility] [address] 340B [id number] [place] [address] Jun, 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 [facility] [address] [place] [id number] [address] [place] [address] May, Ankle pain, right M25.571 an d BMI 50.0-59.9, adult Z68.43 [facility] [address] [facility] [id number] [address] [place] [address] May, [facility] [address] [place] [address] May, [facility] [address] [place] [id number] [address] [place] [address] Apr, [place] [address] [place] [id number] [address] [place] [address] Apr, [facility] [address] [place] [id number] [address] [place] [address] Apr, [facility] [address] [place] [address] Apr, BMI 50.0-59.9, adult Z68.43 and Weakness R53.1 [facility] [address] [place] [id number] [address] [place] [address] Apr, [facility] [address] [place] [id number] [address] [place] [address] Apr, Dysuria R30.0 ; Hematuria R3 1.9 ; Renal lithiasis N20.0 and BMI 50.0-59.9, adult Z68.43 [facility] [address] [place] [id number] [address] [place] [address] Apr, [facility] [address] [place] [id number] [address] [place] [address] Apr, [facility] [address] [address] 05 Apr, 2018 Hypothyroidism E03.[address] [address] 04 Apr, 2018 Burning with urination R30.0 ; Type 2 diabetes mellitus with diabetic neuropathic arthropathy, without long-term current use of insulin E11.610 ; Acute bilateral low back pain without sciatica M54.5 and BMI 50.0- 59.9, adult Z68.43 [place] [address] [address] 02 Mar, 2018 Hypothyroidism E03.[address] [address] Feb, [facility] [place] [address] [address] 15 Jan, [address] [address] 07 Jan, 2018 Acute non-recurrent maxillar y sinusitis J01.00 and BMI 50.0-59.9, adult Z68.43 [facility] [place] [address] [address] 04 Jan, 2018 Congestion of upper respirat ory tract J98.8 and BMI 50.0-59.9, adult Z68.[address] [address] Dec, Type 2 diabetes mellitus wit h diabetic neuropathic arthropathy, without long-term current use of insulin E11.610 ; Morbid obesity with BMI of 50.0-59.9, adult Z68.43 ; Hypothyroidism E03.9 ; Coronary artery disease I25.10 ; Hyperlipidemia LDL goal <70 E78.5 ; Right lower quadrant abdominal pain R10.31 and Acute cystitis with hematuria N30.01 [facility] WALK IN [address] [address] Dec, Migraine with aura and witho ut status migrainosus, not intractable G43.109 ; Dehydration symptoms R63.8 and BMI 50.0-59.9, adult Z68.43 [place] [address] [address] Oct, [place] [address] [address] Oct, [place] [address] [address] Oct, [place] [address] [address] September, [address] [address] September, Type 2 diabetes mellitus wit h diabetic neuropathic arthropathy, without long-term current use of insulin E11.610 ; Hyperlipidemia, unspecified hyperlipidemia type E78.5 ; Personal history of pulmonary embolism Z86.711 ; Coronary artery disease I25.10 and Hypothyroidism E03.9 [place] [address] [address] September, [address] [address] Aug, Type 2 diabetes mellitus wit h [...] without aura and with status migrainosus G43.011 [place] [address] [address] Aug, [place] [address] [address] Aug, [place] [address] [place] [address] Jul, Renal stones N20.0 [facility] [address] [address] Jun, Back pain M54.9 ; Kidney sto radha N20.0 and BMI 50.0-59.9, adult Z68.43 [place] [address] [address] Jun, [place] [address] [address] Apr, [place] [address] [address] Apr, [place] [address] [address] Apr, Right foot pain M79.671 ; Ac ronnie gout involving toe of right foot, 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 and Arthritis M19.90 [facility] [address] [address] 06 Apr, 2017 Gastroesophageal reflux dise ase without esophagitis K21.9 [place] [address] [address] 16 Mar, 2017 Hypothyroidism, unspecified E03.9 [place] [address] [address] Feb, [place] [address] [address] 25 Jan, 2017 Cervicalgia of occipito-atla nto-axial region M54.2 and Persistent headaches R51 [place] [address] [address] 20 Jan, 2017 [place] [address] [address] 12 Jan, 2017 Intractable migraine without aura and with status migrainosus G43.011 ; Cervical spine pain M54.2 ; Hyperlipidemia, unspecified hyperlipidemia type E78.5 ; Hypothyroidism E03.9 and Metabolic syndrome E88.81 [place] [address] [address] Jan, Hypothyroidism, unspecified E03.9 [place] [address] [address] Dec, Hypothyroidism, unspecified E03.9 [place] [address] [address] Dec, Hypothyroidism E03.9 [place] [address] [address] Nov, Laceration of left great toe w/o foreign body w/o damage to nail, initial encounter S91.112A [facility] [address] [address] Oct, Pain in left knee M25.562 an d Arthritis M19.90 [place] [address] [address] Oct, Hypothyroidism, unspecified E03.9 and Hyperlipidemia, unspecified hyperlipidemia type E78.5 [place] [address] [address] Oct, Gastroesophageal reflux dise ase without esophagitis K21.9 [place] [address] [address] 14 Oct, 2016 Metabolic syndrome E88.81 ; Personal history of pulmonary embolism Z86.711 ; Other specified hypothyroidism E03.8 and Hyperlipidemia, unspecified hyperlipidemia type E78.5 [place] [address] [address] 13 Oct, 2016 Personal history of pulmonar y embolism Z86.711 ; Dysuria R30.0 ; Metabolic syndrome E88.81 ; Other specified hypothyroidism E03.8 ; Hyperlipidemia, unspecified hyperlipidemia type E78.5 and Morbid obesity with BMI of 50.0-59.9, adult Z68.43 [place] [address] [address] September, [facility] [place] [address] [address] September, Wrist pain, left M25.532 and Acute pain of left knee M25.[address] [address] Jul, Dysuria R30.[address] [address] Jul, Dysuria R30.0 [place] [address] [address] Jul, Left lower quadrant pain R10 .[address] [address] Jul, [place] [address] [address] Jul, Coronary artery disease I25. 10 ; Family history of diabetes mellitus Z83.3 ; Morbid obesity with BMI of 50.0-59.9, adult Z68.43 ; Metabolic syndrome E88.81 ; Personal history of pulmonary embolism Z86.711 ; Gastroesophageal reflux disease without esophagitis K21.9 ; Hypothyroidism, unspecified E03.9 ; Hyperlipidemia, unspecified hyperlipidemia type E78.5 and Left lower quadrant pain R10.32 [facility] [place] [address] [place] [id number] [address] [place] [address] Jul, [facility] [address] [address] Jul, Morbid obesity with BMI of 5 0.0-59.9, adult Z68.43 [facility] [place] [id number] [place] [address] Jul, Generalized abdominal pain R 10.84 [facility] [place] [address] [place] [id number] [address] [place] [address] 02 Jun, 2016 Muscle strain of right upper back, initial encounter S29.012A [facility] WALK IN [place] [address] [address] May, Foreign body (FB) in soft ti ssue M79.5 [place] [address] [address] Mar, Hypothyroidism, unspecified E03.9 and Arthritis M19.90 [place] [address] [address] Feb, Coronary artery disease I25. 10 ; Morbid obesity with BMI of 50.0- 59.9, adult Z68.43 ; Metabolic syndrome E88.81 ; Gastroesophageal reflux disease without esophagitis K21.9 ; Hypothyroidism, unspecified E03.9 ; Personal history of pulmonary embolism Z86.711 and Hyperlipidemia, unspecified hyperlipidemia type E78.5 [place] [address] [address] Feb, [facility] W[facility] IN [place] [address] [address] Jan, Acute right-sided thoracic b ack pain M54.[address] [address] Jan, Acute pain of left knee M25. 562 [place] [address] [address] 18 Dec, 2015 Dysuria R30.0 ; Metabolic sy ndrome E88.81 ; Acute pain of left knee M25.562 ; Acute cystitis with hematuria N30.01 and Acute left eye pain H57.12 [place] [address] [address] Dec, [place] [address] [address] Dec, [place] [address] [id number] [address] [place] [address] Dec, Hypothyroidism, unspecified E03.9 [place] [address] [id number] [address] [place] [address] Dec, [place] [address] [facility] [id number] [address] [place] [address] Nov, Peripheral edema R60.9 and A cute pain of left knee M25.562 [facility] [place] [address] [id number] [address] [place] [address] September, [place] [address] [facility] [id number] [address] [place] [address] September, Metabolic syndrome E88.81 an d Allergy, subsequent encounter T78.40XD [facility] [place] [address] [facility] [id number] [address] [place] [address] September, Muscle strain T14.8 [place] [address] [facility] [id number] [address] [place] [address] Aug, Chest pressure R07.89 ; [place] bolic syndrome E88.81 ; Morbid obesity with BMI of 50.0-59.9, adult Z68.43 ; Esophageal reflux 530.81 and Shortness of breath R06.02 [place] [address] [facility] [id number] [address] [place] [address] Aug, [place] [address] [facility] [id number] [address] [place] [address] Aug, [place] [address] [facility] [id number] [address] [place] [address] Aug, Hypothyroidism, unspecified E03.9 [place] [address] [facility] [id number] [address] [place] [address] Aug, Routine health maintenance Z 00.00 [facility] [place] [address] [facility] [id number] [address] [place] [address] Aug, [place] [address] [place] [id number] [address] [place] [address] Jul, 2016 Routine health maintenance Z 00.00 ; Family history of diabetes mellitus Z83.3 ; Family history of cancer Z80.9 and Morbid obesity with BMI of 50.0-59.9, adult Z68.43 [facility] WALK IN [facility] [address] [place] [id number] [address] [place] [address] Jul, Allergic rhinitis J30.9 and Postnasal drip R09.82 [place] [address] [place] [id number] [address] [place] [address] Jul, Influenza J11.1 [facility] IN [place] [address] [place] [id number] [address] [place] [address] 08 Jul, 2015 Dysuria R30.0 [place] [address] [place] [id number] [address] [place] [address] Apr, [place] [address] [address] Mar, Acute upper respiratory infe ction, unspecified J06.9 and Hypothyroidism E03.9 [place] [address] [place] [id number] [address] [place] [address] Mar, [place] [address] [place] [id number] [address] [place] [address] Feb, Coronary artery disease I25. 10 [place] [address] [place] [id number] [address] [place] [address] Feb, Left foot pain M79.672 [place] [address] [place] [id number] [address] [place] [address] Jan, UTI (urinary tract infection ) 599.0 [place] [address] [place] [id number] [address] [place] [address] Jan, Urinary tract infection, sit e not specified 599.0 [place] [address] [place] [id number] [address] [place] [address] Jan, Urinary tract infection, sit e not specified 599.0 [facility] [address] [facility] [id number] [address] [place] [address] Jan, [facility] [address] [facility] [id number] [address] [place] [address] Dec, Headache 784.0 [facility] [address] [facility] [id number] [address] [place] [address] Dec, Urinary tract infection, sit e not specified 599.0 [place] [address] [facility] [id number] [address] [place] [address] Dec, Urinary tract infection, sit e not specified 599.0 [place] [address] [place] [id number] [address] [place] [address] Dec, Urinary tract infection, sit e not specified 599.0 [place] [address] [place] [id number] [address] [place] [address] Nov, Unspecified sleep apnea 780. 57 ; Encounter for long-term (current) use of anticoagulants V58.61 ; Routine general medical examination at health care facility V70.0 and Arthritis of both knees 716.96 [place] [address] [place] [id number] [address] [place] [address] September, Cat bite of hand 882.0 and R ectal bleeding 569.3 [facility] [address] [place] [id number] [address] [place] [address] Aug, [facility] [address] [facility] [id number] [address] [place] [address] Aug, [place] [address] [place] [id number] [address] [place] [address] Jul, [facility] [address] [place] [id number] [address] [place] [id number] Jul, [facility] [address] [id number] [address] [place] [address], [place] [id number] Jul, [facility] [address] [id number] [address] [place] [address], [place] [id number] Jul, [facility] [address] [id number] [address] [place] [address], [place] [id number] Jul, [facility] [address] [id number] [address] [place] [address], [place] [id number] Jul, [facility] [address] [id number] [address] [place] [address], [place] [id number] Jul, [facility] [address] [id number] [address] [place] [address], [place] [id number] Jul, [facility] [address] [id number] [address] [place] [address], [place] [id number] May, [facility] [address] [id number] [address] [place] [address], [place] [id number] May, [facility] [place] [address] [id number] [address] [place] [address], [place] [address] May, [facility] [address] [id number] [address] [place] [address], [place] [address] May, [facility] [address] [id number] [address] [place] [address], [place] [id number] May, [facility] [address] [id number] [address] [place] [address], [place] [id number] May, [facility] [address] [id number] [address] [place] [address], [place] [address] May, [facility] [address] [id number] [address] [place] [address], [place] [id number] Mar, [facility] [facility] [address] [id number] [address] [place] [address], [place] [address] Mar, [facility] [address] [id number] [address] [place] [address], [place] [address] 08 Jan, 2014 [facility] [address] [id number] [address] [place] [address], [place] [address] 08 Jan, 2013 [facility] [address] [id number] [address] [place] [address], [place] [address] Jan, 2013 [facility] [address] [id number] [address] [place] [address], [place] [address] Jan, 2013 [facility] [address] [id number] [address] [place] [address], [place] [address] Jan, 2013 [facility] [address] [id number] [address] [place] [address], [place] [address] Jan, 2013 [facility] [address] [id number] [address] [place] [address], [place] [address] Dec, [facility] [address] [id number] [address] [place] [address], [place] [address] Dec, [facility] [address] [id number] [address] [place] [address], [place] [address] Dec, [facility] [address] [id number] [address] [place] [address], [place] [address] Dec, [facility] [address] [id number] [address] [place] [address], [place] [address] Dec, [facility] [address] [id number] [address] [place] [address], [place] [address] Dec, [facility] [address] [id number] [address] [place] [address], [place] [address] Dec, [facility] [address] [id number] [address] [place] [address], [place] [address] Dec, [facility] [address] [id number] [address] [place] [address], [place] [address] Dec, [facility] [address] [id number] [address] [place] [address], [place] [address] Dec, [facility] [address] [id number] [address] [place] [address], [place] [address] Nov, [facility] [address] [id number] [address] [place] [address], [place] [address] Nov, [facility] [address] [id number] [address] [place] [address], [place] [address] September, [facility] [address] [id number] [address] [place] [address], [place] [address] September, [facility] [address] [id number] [address] [place] [address], [place] [address] September, [facility] [address] [id number] [address] [place] [address], [place] [address] September, [facility] [address] [id number] [address] [place] [address], [place] [address] Aug, [facility] [address] [id number] [address] [place] [address], [place] [address] Aug, [facility] [address] [id number] [address] [place] [address], [place] [address] Aug, [facility] [address] [id number] [address] [place] [address], [place] [address] Aug, [facility] [address] [id number] [address] [place] [address], [place] [address] Aug, [facility] [address] [id number] [address] [place] [address], [place] [address] Aug, [facility] [address] [id number] [address] [place] [address], [place] [address] Aug, [facility] [address] [id number] [address] [place] [address], [place] [address] Aug, [facility] [address] [id number] [address] [place] [address], [place] [address] Aug, [facility] [address] [id number] [address] [place] [address], [place] [address] Aug, [facility] [address] [id number] [facility] [place] [address] 07 Aug, 2013 [facility] [address] [id number] [address] [place] [address], [place] [address] 07 Aug, 2013 [facility] [address] [id number] [address] [place] [address], [place] [address] Jul, [facility] [address] [id number] [address] [place] [address], [place] [address] Jul, [facility] [address] [id number] [address] [place] [address], [place] [address] Jul, [facility] [address] [id number] [address] [place] [address], [place] [address] Jul, [facility] [address] [id number] [address] [place] [address], [place] [address] Jul, [facility] [address] [id number] [address] [place] [address], [place] [address] Jul, [facility] [address] [id number] [address] [place] [address], [place] [address] 05 Jul, 2013 [facility] [address] [id number] [address] [place] [address], [place] [address] 05 Jul, 2013 [facility] [address] [id number] [address] [place] [address], [place] [address] Jul, [facility] [address] [id number] [address] [place] [address], [place] [address] Jul, [facility] [address] [id number] [address] [place] [address], [place] [address] Jun, [facility] [address] [id number] [address] [place] [address], [place] [address] Jun, [facility] [address] [id number] [address] [place] [address], [place] [address] 17 Jun, 2013 [facility] [address] [id number] [address] [place] [address], [place] [address] 17 Jun, 2013 [facility] [address] [id number] [address] [place] [address], [place] [address] Jun, [facility] [address] [id number] [address] [place] [address], [place] [address] Jun, [facility] [address] [id number] [address] [place] [address], [place] [address] Jun, [facility] [address] [id number] [address] [place] [address], [place] [address] Jun, [facility] [address] [id number] [address] [place] [address], [place] [address] Jun, [facility] [address] [id number] [address] [place] [address], [place] [address] Jun, [facility] [address] [id number] [address] [place] [address], [place] [address] Jun, [facility] [address] [id number] [address] [place] [address], [place] [address] Jun, [facility] [address] [id number] [address] [place] [address], [place] [address] May, [facility] [address] [id number] [address] [place] [address], [place] [address] May, [facility] [address] [id number] [address] [place] [address], [place] [address] May, [facility] [address] [id number] [address] [place] [address], [place] [address] May, [facility] [address] [id number] [address] [place] [address], [place] [address] May, [facility] [address] [id number] [address] [place] [address], [place] [address] May, [facility] [address] [id number] [address] [place] [address], [place] [address] May, [facility] [address] [id number] [address] [place] [address], [place] [address] May, [facility] [address] [id number] [address] [place] [address], [place] [address] May, [facility] [address] [id number] [address] [place] [address], [place] [address] May, [facility] [address] [id number] [address] [place] [address], [place] [address] May, [facility] [address] [id number] [address] [place] [address], [place] [address] May, [facility] [address] [id number] [address] [place] [address], [place] [address] May, [facility] [address] [id number] [address] [place] [address], [place] [address] May, [facility] [address] [id number] [address] [place] [address], [place] [address] May, [facility] [address] [id number] [address] [place] [address], [place] [address] Apr, [facility] [address] [id number] [address] [place] [address], [place] [address] Apr, [facility] [address] [id number] [address] [place] [address], [place] [address] Apr, [facility] [address] [id number] [address] [place] [address], [place] [address] Apr, [facility] [address] [id number] [address] [place] [address], [place] [address] Mar, [facility] [address] [id number] [address] [place] [address], [place] [address] Mar, [facility] [address] [id number] [address] [place] [address], [place] [address] Mar, [facility] [address] [id number] [address] [place] [address], [place] [address] Mar, [facility] [address] [id number] [address] [place] [address], [place] [address] Mar, [facility] [address] [id number] [address] [place] [address], [place] [address] Mar, [facility] [address] [id number] [address] [place] [address], [place] [address] Mar, [facility] [address] [id number] [address] [place] [address], [place] [address] Mar, [facility] [address] [id number] [address] [place] [address], [place] [address] Mar, [facility] [address] [id number] [address] [place] [address], [place] [address] Mar, [facility] [address] [id number] [address] [place] [address], [place] [address] Mar, [facility] [address] [id number] [address] [place] [address], [place] [address] Mar, [facility] [address] [id number] [address] [place] [address], [place] [address] Feb, [facility] [address] [id number] [address] [place] [address], [place] [address] 18 Jan, 2013 [facility] [address] [id number] [address] [place] [address], [place] [address] 17 Jan, 2013 [facility] [address] [id number] [address] [place] [address] 06 Jan, 2013 [facility] [address] [id number] [address] [place] [address], [place] [address] 04 Jan, 2013 [facility] [address] [id number] [address] [place] [address], [place] [address] 03 Jan, 2013 [facility] [address] [id number] [address] [place] [address], [place] [address] Dec, [facility] [address] [id number] [address] [place] [address], [place] [address] Dec, [facility] [address] [id number] [address] [place] [address], [place] [address] Dec, [facility] [address] [id number] [address] [place] [address], [place] [address] Dec, [facility] [address] [id number] [address] [place] [address], [place] [address] Dec, [facility] [address] [id number] [address] [place] [address], [place] [address] Dec, [facility] [address] [id number] [address] [place] [address], [place] [address] Dec, [facility] [address] [id number] [address] [place] [address], [place] [address] Dec, [facility] [address] [id number] [address] [place] [address], [place] [address] Nov, [facility] [address] [id number] [address] [place] [address], [place] [address] Nov, [facility] [address] [id number] [address] [place] [address], [place] [address] Nov, [facility] [address] [id number] [address] [place] [address], [place] [address] Nov, [facility] [address] [id number] [address] [place] [address], [place] [address] Nov, [facility] [address] [id number] [address] [place] [address], [place] [address] Nov, [facility] [address] [id number] [address] [place] [address], [place] [address] Oct, [facility] [address] [id number] [id number] Oct, [facility] [address] [id number] [place] [id number] Oct, [facility] [address] [id number] [place] [id number] Oct, [facility] [address] [id number] [place] [id number] Oct, [facility] [address] [id number] [address] [place] [address], [place] [address] Oct, [facility] [address] [id number] [address] [place] [address], [place] [address] Oct, [facility] [address] [id number] [address] [place] [address], [place] [address] Oct, [facility] [address] [id number] [address] [place] [address], [place] [address] Oct, [facility] [address] [id number] [address] [place] [address], [place] [address] Oct, [facility] [address] [id number] [address] [place] [address], [place] [address] Oct, [facility] [address] [id number] [address] [place] [address], [place] [address] September, [facility] [address] [id number] [address] [place] [address], [place] [address] Aug, [facility] [address] [id number] [address] [place] [address], [place] [address] Aug, [facility] [address] [id number] [address] [place] [address], [place] [address] Aug, [facility] [address] [id number] [address] [place] [address], [place] [address] Aug, [facility] [address] [id number] [address] [place] [address], [place] [address] Jul, [facility] [address] [id number] [address] [place] [address], [place] [address] Jul, [facility] [address] [id number] [address] [place] [address], [place] [address] Jul, [facility] [address] [id number] [address] [place] [address], [place] [address] 05 Jul, 2012 [facility] [address] [id number] [address] [place] [address], [place] [address] 04 Jul, 2012 [facility] [address] [id number] [address] [place] [address], [place] [address] 19 Jun, 2012 [facility] [address] [id number] [address] [place] [address], [place] [address] 13 Jun, 2012 [facility] [address] [id number] [address] [place] [address], [place] [address] Jun, [facility] [address] [id number] [address] [place] [address], [place] [address] May, [facility] [address] [id number] [address] [place] [address], [place] [address] 24 May, 2012 [facility] [address] [id number] [address] [place] [address], [place] [address] 14 May, 2012 [facility] [address] [id number] [address] [place] [address], [place] [address] May, [facility] [address] [id number] [address] [place] [address], [place] [address] May, [facility] [address] [id number] [address] [place] [address], [place] [address] May, [facility] [address] [id number] [address] [place] [address], [place] [address] 18 Apr, 2012 [facility] [address] [id number] [address] [place] [address], [place] [address] 18 Apr, 2012 [facility] [address] [id number] [address] [place] [address], [place] [address] Apr, [facility] [address] [id number] [address] [place] [address], [place] [address] 13 Apr, 2012 [facility] [address] [id number] [address] [place] [address] Apr, [facility] [address] [id number] [address] [place] [address], [place] [address] Apr, [facility] [address] [id number] [address] [place] [address], [place] [address] Apr, [facility] [address] [id number] [address] [place] [address], [place] [address] Mar, [facility] [address] [id number] [address] [place] [address], [place] [address] Mar, [facility] [address] [id number] [address] [place] [address], [place] [address] Mar, [facility] [address] [id number] [address] [place] [address], [place] [address] Mar, [facility] [address] [id number] [address] [place] [address], [place] [address] 18 Jan, 2012 [facility] [address] [id number] [address] [place] [address], [place] [address] 10 Jan, 2012 [facility] [address] [id number] [address] [place] [id number] 06 Jan, 2012 [facility] [address] [id number] [address] [place] [address] 06 Jan, 2012 [facility] [address] [id number] [place] [id number] Dec, [facility] [address] [id number] [address] [place] [address] Dec, [facility] [address] [id number] [place] [id number] Dec, [facility] [address] [id number] [address] [place] [address] Dec, [facility] [address] [id number] [address] [place] [address] Dec, [facility] [address] [id number] [address] [place] [id number] Dec, [facility] [address] [facility] [id number] [address] [place] [id number] Nov, [facility] [address] [facility] [id number] [address] [place] [id number] Nov, [facility] [address] [facility] [id number] [address] [place] [phone] Nov, IMMUNIZATIONS No Known Immunizations SOCIAL HISTORY Never Assessed REASON FOR VISIT PLAN OF CARE VITAL SIGNS Height 62 in 2012-12-16 Weight 315.99 lbs 2012-12-16 Temperature 98.1 degrees Fahrenheit 2012-12-16 Heart Rate 72 bpm 2012-12-16 Respiratory Rate 20 2012-12-16 Blood pressure systolic 120 mmHg 2012-12-16 Blood pressure diastolic 78 mmHg 2012-12-16 MEDICATIONS Unknown Medications RESULTS No Results PROCEDURES Procedure Date Ordered Result Body Site COMPUTER DX MAMMOGRAM ADD-ON Dec 16, 2012 PROTHROMBIN TIME Dec 16, 2012 ASSAY THYROID STIM HORMONE Dec 16, 2012 LIPID PANEL Dec 16, 2012 VENIPUNCT, ROUTINE* Dec 16, 2012 INSTRUCTIONS MEDICATIONS ADMINISTERED No Known Medications [...] asthma(493.90) Medical History Near syncope Medical History shelter current use of anticoagulant Medical History Renal [...]
--- OUTSIDE RECORDS SUMMARY | 2019-11-17 19:14 | XMS REPORT ---
Author Author Anca Lucero Doctor Organization [facility] Address Unknown Phone Unavailable Care Team Providers Care Wood Room Supervisor Name Role Phone Migration, Doctor Unavailable Unavailable PROBLEMS Type Condition ICD9-CM Code ZDY33-PD Code Onset Dates Condition S tatus SNOMED Code Problem Esophageal reflux K21.9 Active 24 0868784 Problem Dyslipidemia E78.5 12 Oct, 2017 Active 3709 80907 Problem Unspecified hypothyroidism E03.9 Act hernesto 91855570 Problem Generalized anxiety disorder F41.1 Apr, 200 8 Active 16705871 Problem Shortness of breath R06.02 Apr, Active 106415840 Problem Pulmonary embolus I26.99 13 Oct, 2011 Active 44395361 Problem Nonintractable migraine G43.009 08 Oct, 2015 Act hernesto 058454911 Problem Pre-diabetes R73.03 Active 8008023 02 Problem Morbid obesity with BMI of 50.0-59.9, adult Z68.43 Active 865394161 Problem Hypothyroidism E03.9 Active 71124 008 Problem Morbid obesity E66.01 Active 12138 6002 Problem Unspecified sleep apnea G47.30 Active 53910285 Problem Personal history of pulmonary embolism Z86.711 Active 937144781 Problem Osteoarthritis of right knee M17.11 13 May, 201 0 Active 591514312 Problem Renal stones N20.0 Active 4874063 7 Problem Coronary artery disease I25.10 Active 86764857 Problem Hyperlipidemia LDL goal <70 E78.5 Ac tive 04297927 Problem Migraine with aura and without status migrainosu s, not intractable G43.109 Active 5269431 ALLERGIES No Information ENCOUNTERS Encounter Location Date Diagnosis [facility] [address] [facility] [id number] [address] [place] [address] Nov, [facility] [address] [facility]NOTE [facility]] [id number] [address] [place] [address] Oct, [facility] [address] [facility]] [id number] [address] [place] [address] September, [facility] [address] [id number] [address] [place] [address] September, [facility] [address] [facility]NOTE [facility]] [id number] [address] [place] [address] September, [facility] [address] [facility]NOTE [facility]] [id number] [address] [place] [address] Aug, [place] [address] [id number] [address] [place] [address] Aug, History of recurrent UTIs Z8 7.440 and Personal history of pulmonary embolism Z86.711 [place] [address] [id number] [address] [place] [address] Jul, History of recurrent UTIs Z8 7.440 [place] [address] [facility]] [id number] [address] [place] [address] 07 Jun, 2019 Personal history of pulmonar y embolism Z86.711 [place] [address] [id number] [address] [place] [address] 07 Jun, 2019 Personal history of pulmonar y embolism Z86.711 [place] [address] [facility] 3] [id number] [address] [place] [address] May, [facility] [address] [id number] [address] May, 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 and Dizziness R42 [facility] IN [facility] [address] [facility]NOTE 3] [id number] [address] [place] [address] Apr, Non-recurrent acute suppurat hernesto otitis media of both ears without spontaneous rupture of tympanic membranes H66.003 [facility] [address] [facility]NOTE 3] [id number] [address] [place] [address] Feb, Pre-diabetes R73.03 and Hype rlipidemia LDL goal <70 E78.5 [place] [address] [facility]NOTE 3] [id number] [address] [place] [address] Feb, [facility] [address] [facility] 3] [id number] [address] [place] [address] Feb, [facility] [address] [facility] 3] [id number] [address] [place] [address] 30 Jan, 2019 [facility] [address] [facility]] [id number] [address] [place] [address] Jan, [place] [address] [facility]] [id number] [address] [place] [address] 18 Jan, 2019 Encounter for Medicare annua l wellness exam Z00.00 ; Hyperlipidemia LDL goal <70 E78.5 ; Coronary artery disease I25.10 ; Hypothyroidism E03.9 ; Osteoarthritis of right knee M17.11 ; Morbid obesity with BMI of 50.0-59.9, adult Z68.43 and Esophageal reflux K21.9 [place] [address] [place] [id number] [address] [place] [address] Jan, Dysuria R30.0 and Hematuria, unspecified type R31.9 [place] [address] [facility] 3] [id number] [address] [place] [address] Jan, Hematuria, unspecified type R31.9 [place] [address] [facility] 3] [id number] [address] [place] [address] Dec, Hematuria, unspecified type R31.9 [place] [address] [facility]] [id number] [address] [place] [address] Nov, Hematuria, unspecified type R31.[id number] [place] [address] Nov, Other microscopic hematuria R31.29 [facility] [address] [facility] 3] [id number] [address] [place] [address] Nov, Vaginal gena B37.3 ; Othe r microscopic hematuria R31.29 and Morbid obesity E66.01 [place] [address] [facility]NOTE 3] [id number] [address] [place] [address] Nov, [facility] [address] [place] [id number] [place] [address] Nov, [facility] [address] [place] [id number] [place] [address] Nov, UTI symptoms R39.9 and Morbi d obesity E66.01 [facility] [address] [address] Nov, [facility] [address] [address] September, [facility] [address] [address] September, [facility] [address] [address] Aug, Right foot pain M79.671 and Morbid obesity E66.01 [facility] [address] [address] Jul, Right foot pain M79.671 and Morbid obesity E66.01 [facility] [address] [address] Jul, Injury of right foot, initia l encounter S99.921A and Morbid obesity E66.01 [facility] [address] [address] Jul, Recurrent syncope R55 and Mo rbid obesity E66.01 [facility] [address] [place] [id number] [address] [place] [address] Jul, [facility] [address] [address] Jun, Hematuria, unspecified type R31.9 and BMI 50.0-59.9, adult Z68.43 [facility] [address] [address] Jun, [facility] [place] [address] 340[address] [id number] [place] [address] Jun, meterman current use of ant icoagulant Z79.01 [facility] [address] [place] [id number] [address] [place] [address] May, Ankle pain, right M25.571 an d BMI 50.0-59.9, adult Z68.43 [facility] [address] [facility] 3] [id number] [address] [place] [address] May, [facility] [address] [place] [address] May, [facility] [address] [place] [id number] [address] [place] [address] Apr, [place] [address] [place] [id number] [address] [place] [address] Apr, [facility] [address] [place] [id number] [address] [place] [address] Apr, [facility] [address] [place] [address] Apr, BMI 50.0-59.9, adult Z68.43 and Weakness R53.1 [facility] [address] [place] [id number] [address] [place] [address] Apr, [facility] [address] [place] [id number] [address] [place] [address] Apr, Dysuria R30.0 ; Hematuria R3 1.9 ; Renal lithiasis N20.0 and BMI 50.0-59.9, adult Z68.43 [facility] [address] [place] [id number] [address] [place] [address] Apr, [facility] [address] [place] [id number] [address] [place] [address] Apr, [facility] [address] [address] 05 Apr, 2018 Hypothyroidism E03.[address] [address] 04 Apr, 2018 Burning with urination R30.0 ; Type 2 diabetes mellitus with diabetic neuropathic arthropathy, without long-term current use of insulin E11.610 ; Acute bilateral low back pain without sciatica M54.5 and BMI 50.0- 59.9, adult Z68.43 [place] [address] [address] 02 Mar, 2018 Hypothyroidism E03.[address] [address] Feb, [facility] [place] [address] [address] 15 Jan, [address] [address] 07 Jan, 2018 Acute non-recurrent maxillar y sinusitis J01.00 and BMI 50.0-59.9, adult Z68.43 [facility] [place] [address] [address] 04 Jan, 2018 Congestion of upper respirat ory tract J98.8 and BMI 50.0-59.9, adult Z68.[address] [address] Dec, Type 2 diabetes mellitus wit h diabetic neuropathic arthropathy, without long-term current use of insulin E11.610 ; Morbid obesity with BMI of 50.0-59.9, adult Z68.43 ; Hypothyroidism E03.9 ; Coronary artery disease I25.10 ; Hyperlipidemia LDL goal <70 E78.5 ; Right lower quadrant abdominal pain R10.31 and Acute cystitis with hematuria N30.01 [facility] IN [address] [address] Dec, Migraine with aura and witho ut status migrainosus, not intractable G43.109 ; Dehydration symptoms R63.8 and BMI 50.0-59.9, adult Z68.43 [place] [address] [address] Oct, [place] [address] [address] Oct, [place] [address] [address] Oct, [place] [address] [address] September, [address] [address] September, Type 2 diabetes mellitus wit h diabetic neuropathic arthropathy, without long-term current use of insulin E11.610 ; Hyperlipidemia, unspecified hyperlipidemia type E78.5 ; Personal history of pulmonary embolism Z86.711 ; Coronary artery disease I25.10 and Hypothyroidism E03.9 [place] [address] [address] September, [address] [address] Aug, Type 2 diabetes mellitus wit h [...] without aura and with status migrainosus G43.011 [place] [address] [address] Aug, [place] [address] [address] Aug, [place] [address] [place] [address] Jul, Renal stones N20.0 [facility] [address] [address] Jun, Back pain M54.9 ; Kidney sto radha N20.0 and BMI 50.0-59.9, adult Z68.43 [place] [address] [address] Jun, [place] [address] [address] Apr, [place] [address] [address] Apr, [place] [address] [address] Apr, Right foot pain M79.671 ; Ac ronnie gout involving toe of right foot, 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 and Arthritis M19.90 [facility] [address] [address] 06 Apr, 2017 Gastroesophageal reflux dise ase without esophagitis K21.9 [place] [address] [address] 16 Mar, 2017 Hypothyroidism, unspecified E03.9 [place] [address] [address] Feb, [place] [address] [address] 25 Jan, 2017 Cervicalgia of occipito-atla nto-axial region M54.2 and Persistent headaches R51 [place] [address] [address] 20 Jan, 2017 [place] [address] [address] 12 Jan, 2017 Intractable migraine without aura and with status migrainosus G43.011 ; Cervical spine pain M54.2 ; Hyperlipidemia, unspecified hyperlipidemia type E78.5 ; Hypothyroidism E03.9 and Metabolic syndrome E88.81 [place] [address] [address] Jan, Hypothyroidism, unspecified E03.9 [place] [address] [address] Dec, Hypothyroidism, unspecified E03.9 [place] [address] [address] Dec, Hypothyroidism E03.9 [place] [address] [address] Nov, Laceration of left great toe w/o foreign body w/o damage to nail, initial encounter S91.112A [facility] [address] [address] Oct, Pain in left knee M25.562 an d Arthritis M19.90 [place] [address] [address] Oct, Hypothyroidism, unspecified E03.9 and Hyperlipidemia, unspecified hyperlipidemia type E78.5 [place] [address] [address] Oct, Gastroesophageal reflux dise ase without esophagitis K21.9 [place] [address] [address] 14 Oct, 2016 Metabolic syndrome E88.81 ; Personal history of pulmonary embolism Z86.711 ; Other specified hypothyroidism E03.8 and Hyperlipidemia, unspecified hyperlipidemia type E78.5 [place] [address] [address] 13 Oct, 2016 Personal history of pulmonar y embolism Z86.711 ; Dysuria R30.0 ; Metabolic syndrome E88.81 ; Other specified hypothyroidism E03.8 ; Hyperlipidemia, unspecified hyperlipidemia type E78.5 and Morbid obesity with BMI of 50.0-59.9, adult Z68.43 [place] [address] [address] September, [facility] [place] [address] [address] September, Wrist pain, left M25.532 and Acute pain of left knee M25.[address] [address] Jul, Dysuria R30.[address] [address] Jul, Dysuria R30.0 [place] [address] [address] Jul, Left lower quadrant pain R10 .[address] [address] Jul, [place] [address] [address] Jul, Coronary artery disease I25. 10 ; Family history of diabetes mellitus Z83.3 ; Morbid obesity with BMI of 50.0-59.9, adult Z68.43 ; Metabolic syndrome E88.81 ; Personal history of pulmonary embolism Z86.711 ; Gastroesophageal reflux disease without esophagitis K21.9 ; Hypothyroidism, unspecified E03.9 ; Hyperlipidemia, unspecified hyperlipidemia type E78.5 and Left lower quadrant pain R10.32 [facility] [place] [address] [place] [id number] [address] [place] [address] Jul, [facility] [address] [address] Jul, Morbid obesity with BMI of 5 0.0-59.9, adult Z68.43 [facility] [place] [id number] [place] [address] Jul, Generalized abdominal pain R 10.84 [facility] [place] [address] [place] [id number] [address] [place] [address] 02 Jun, 2016 Muscle strain of right upper back, initial encounter S29.012A [facility] [place] [address] [address] May, Foreign body (FB) in soft ti ssue M79.5 [place] [address] [address] Mar, Hypothyroidism, unspecified E03.9 and Arthritis M19.90 [place] [address] [address] Feb, Coronary artery disease I25. 10 ; Morbid obesity with BMI of 50.0- 59.9, adult Z68.43 ; Metabolic syndrome E88.81 ; Gastroesophageal reflux disease without esophagitis K21.9 ; Hypothyroidism, unspecified E03.9 ; Personal history of pulmonary embolism Z86.711 and Hyperlipidemia, unspecified hyperlipidemia type E78.5 [place] [address] [address] Feb, [facility] [place] [address] [address] Jan, Acute right-sided thoracic b ack pain M54.[address] [address] Jan, Acute pain of left knee M25. 562 [place] [address] [address] 18 Dec, 2015 Dysuria R30.0 ; Metabolic sy ndrome E88.81 ; Acute pain of left knee M25.562 ; Acute cystitis with hematuria N30.01 and Acute left eye pain H57.12 [place] [address] [address] Dec, [place] [address] [address] Dec, [place] [id number] [id number] [address] [place] [address] Dec, Hypothyroidism, unspecified E03.9 [place] [address] [id number] [address] [place] [address] Dec, [place] [address] [facility] [id number] [address] [place] [address] Nov, Peripheral edema R60.9 and A cute pain of left knee M25.562 [facility] [place] [address] [id number] [address] [place] [address] September, [place] [address] [facility]] [id number] [address] [place] [address] September, Metabolic syndrome E88.81 an d Allergy, subsequent encounter T78.40XD [facility] [place] [address] [facility]] [id number] [address] [place] [address] September, Muscle strain T14.8 [place] [address] [facility]] [id number] [address] [place] [address] Aug, Chest pressure R07.89 ; Sabin bolic syndrome E88.81 ; Morbid obesity with BMI of 50.0-59.9, adult Z68.43 ; Esophageal reflux 530.81 and Shortness of breath R06.02 [place] [address] [facility]] [id number] [address] [place] [address] Aug, [place] [address] [facility]] [id number] [address] [place] [address] Aug, [place] [address] [facility]] [id number] [address] [place] [address] Aug, Hypothyroidism, unspecified E03.9 [place] [address] [facility]] [id number] [address] [place] [address] Aug, Routine health maintenance Z 00.00 [facility] [place] [address] [facility]] [id number] [address] [place] [address] Aug, [place] [id number] [place] [id number] [address] [place] [address] Jul, 2016 Routine health maintenance Z 00.00 ; Family history of diabetes mellitus Z83.3 ; Family history of cancer Z80.9 and Morbid obesity with BMI of 50.0-59.9, adult Z68.43 [facility] IN [facility] [address] [place] [id number] [place] [address] Jul, Allergic rhinitis J30.9 and Postnasal drip R09.82 [place] [address] [place] [id number] [place] [address] Jul, Influenza J11.1 [facility] [place] [address] [place] [id number] [place] [address] 08 Jul, 2015 Dysuria R30.0 [place] [address] [place] [id number] [address] [place] [address] Apr, [place] [address] [address] Mar, Acute upper respiratory infe ction, unspecified J06.9 and Hypothyroidism E03.9 [place] [address] [place] [id number] [address] [place] [address] Mar, [place] [address] [place] [id number] [place] [address] Feb, Coronary artery disease I25. 10 [place] [address] [place] [id number] [place] [address] Feb, Left foot pain M79.672 [place] [address] [place] [id number] [place] [address] Jan, UTI (urinary tract infection ) 599.0 [place] [address] [place] [id number] [address] [place] [address] Jan, Urinary tract infection, sit e not specified 599.0 [place] [address] [place] [id number] [address] [place] [address] Jan, Urinary tract infection, sit e not specified 599.0 [facility] [address] [facility] [id number] [address] [place] [address] Jan, [facility] [address] [facility] [id number] [address] [place] [address] Dec, Headache 784.0 [facility] [address] [facility] [id number] [address] [place] [address] Dec, Urinary tract infection, sit e not specified 599.0 [place] [address] [facility] [id number] [address] [place] [address] Dec, Urinary tract infection, sit e not specified 599.0 [place] [address] [place] [id number] [address] [place] [address] Dec, Urinary tract infection, sit e not specified 599.0 [place] [address] [place] [id number] [address] [place] [address] Nov, Unspecified sleep apnea 780. 57 ; Encounter for long-term (current) use of anticoagulants V58.61 ; Routine general medical examination at health care facility V70.0 and Arthritis of both knees 716.96 [place] [address] [place] [id number] [address] [place] [address] September, Cat bite of hand 882.0 and R ectal bleeding 569.3 [facility] [address] [place] [id number] [address] [place] [address] Aug, [facility] [address] [facility] [id number] [address] [place] [address] Aug, [place] [address] [place] [id number] [address] [place] [address] Jul, [facility] [address] [place] [id number] [place] [address] Jul, [facility] [place] [facility] [address] [id number] [address] [place] [address], [place] [address] Jul, [facility] [address] [id number] [address] [place] [address], [place] [address] Jul, [facility] [address] [id number] [address] [place] [address], [place] [phone] Jul, [facility] [address] [id number] [address] [place] [address], [place] [address] Jul, [facility] [address] [id number] [address] [place] [address], [place] [id number] Jul, [facility] [address] [id number] [address] [place] [address], [place] [address] Jul, [facility] [address] [id number] [address] [place] [address], [place] [id number] May, [facility] [address] [id number] [address] [place] [address], [place] [address] May, [facility] [address] [id number] [address] [place] [address], [place] [phone] May, [facility] [address] [id number] [address] [place] [address], [place] [phone] May, [facility] [address] [id number] [address] [place] [address], [place] [address] May, [facility] [address] [id number] [address] [place] [address], [place] [address] May, [facility] [address] [id number] [address] [place] [address], [place] [address] May, [facility] [address] [id number] [address] [place] [address], [place] [address] Mar, [facility] [address] [id number] [address] [place] [address], [place] [address] Mar, [facility] [facility] [address] [id number] [address] [place] [address], [place] [address] 08 Jan, 2014 [facility] [address] [id number] [address] [place] [address], [place] [address] 08 Jan, 2013 [facility] [address] [id number] [address] [place] [address], [place] [address] Jan, 2013 [facility] [address] [id number] [address] [place] [address], [place] [address] Jan, 2013 [facility] [address] [id number] [address] [place] [address], [place] [address] Jan, 2013 [facility] [address] [id number] [address] [place] [address], [place] [address] Jan, 2013 [facility] [address] [id number] [address] [place] [address], [place] [address] Dec, [facility] [address] [id number] [address] [place] [address], [place] [address] Dec, [facility] [address] [id number] [address] [place] [address], [place] [address] Dec, [facility] [address] [id number] [address] [place] [address], [place] [address] Dec, [facility] [address] [id number] [address] [place] [address], [place] [address] Dec, [facility] [address] [id number] [address] [place] [address], [place] [address] Dec, [facility] [address] [id number] [address] [place] [address], [place] [address] Dec, [facility] [address] [id number] [address] [place] [address], [place] [address] Dec, [facility] [address] [id number] [address] [place] [address], [place] [address] Dec, [facility] [address] [id number] [address] [place] [address], [place] [address] Dec, [facility] [address] [id number] [address] [place] [address], [place] [address] Nov, [facility] [address] [id number] [address] [place] [address], [place] [address] Nov, [facility] [address] [id number] [address] [place] [address], [place] [address] September, [facility] [address] [id number] [address] [place] [address], [place] [address] September, [facility] [address] [id number] [address] [place] [address], [place] [address] September, [facility] [address] [id number] [address] [place] [address], [place] [address] September, [facility] [address] [id number] [address] [place] [address], [place] [address] Aug, [facility] [address] [id number] [address] [place] [address], [place] [address] Aug, [facility] [address] [id number] [address] [place] [address], [place] [address] Aug, [facility] [address] [id number] [address] [place] [address], [place] [address] Aug, [facility] [address] [id number] [address] [place] [address], [place] [address] Aug, [facility] [address] [id number] [address] [place] [address], [place] [address] Aug, [facility] [address] [id number] [address] [place] [address], [place] [address] Aug, [facility] [address] [id number] [address] [place] [address], [place] [address] Aug, [facility] [address] [id number] [address] [place] [address], [place] [address] Aug, [facility] [address] [id number] [address] [place] [address], [place] [address] Aug, [facility] [address] [id number] [facility] [place] [address] 07 Aug, 2013 [facility] [address] [id number] [address] [place] [address], [place] [address] 07 Aug, 2013 [facility] [address] [id number] [address] [place] [address], [place] [address] Jul, [facility] [address] [id number] [address] [place] [address], [place] [address] Jul, [facility] [address] [id number] [address] [place] [address], [place] [address] Jul, [facility] [address] [id number] [address] [place] [address], [place] [address] Jul, [facility] [address] [id number] [address] [place] [address], [place] [address] Jul, [facility] [address] [id number] [address] [place] [address], [place] [address] Jul, [facility] [address] [id number] [address] [place] [address], [place] [address] 05 Jul, 2013 [facility] [address] [id number] [address] [place] [address], [place] [address] 05 Jul, 2013 [facility] [address] [id number] [address] [place] [address], [place] [address] Jul, [facility] [address] [id number] [address] [place] [address], [place] [address] Jul, [facility] [address] [id number] [address] [place] [address], [place] [address] Jun, [facility] [address] [id number] [address] [place] [address], [place] [address] Jun, [facility] [address] [id number] [address] [place] [address], [place] [address] 17 Jun, 2013 [facility] [address] [id number] [address] [place] [address], [place] [address] 17 Jun, 2013 [facility] [address] [id number] [address] [place] [address], [place] [address] Jun, [facility] [address] [id number] [address] [place] [address], [place] [address] Jun, [facility] [address] [id number] [address] [place] [address], [place] [address] Jun, [facility] [address] [id number] [address] [place] [address], [place] [address] Jun, [facility] [address] [id number] [address] [place] [address], [place] [address] Jun, [facility] [address] [id number] [address] [place] [address], [place] [address] Jun, [facility] [address] [id number] [address] [place] [address], [place] [address] Jun, [facility] [address] [id number] [address] [place] [address], [place] [address] Jun, [facility] [address] [id number] [address] [place] [address], [place] [address] May, [facility] [address] [id number] [address] [place] [address], [place] [address] May, [facility] [address] [id number] [address] [place] [address], [place] [address] May, [facility] [address] [id number] [address] [place] [address], [place] [address] May, [facility] [address] [id number] [address] [place] [address], [place] [address] May, [facility] [address] [id number] [address] [place] [address], [place] [address] May, [facility] [address] [id number] [address] [place] [address], [place] [address] May, [facility] [address] [id number] [address] [place] [address], [place] [address] May, [facility] [address] [id number] [address] [place] [address], [place] [address] May, [facility] [address] [id number] [address] [place] [address], [place] [address] May, [facility] [address] [id number] [address] [place] [address], [place] [address] May, [facility] [address] [id number] [address] [place] [address], [place] [address] May, [facility] [address] [id number] [address] [place] [address], [place] [address] May, [facility] [address] [id number] [address] [place] [address], [place] [address] May, [facility] [address] [id number] [address] [place] [address], [place] [address] May, [facility] [address] [id number] [address] [place] [address], [place] [address] Apr, [facility] [address] [id number] [address] [place] [address], [place] [address] Apr, [facility] [address] [id number] [address] [place] [address], [place] [address] Apr, [facility] [address] [id number] [address] [place] [address], [place] [address] Apr, [facility] [address] [id number] [address] [place] [address], [place] [address] Mar, [facility] [address] [id number] [address] [place] [address], [place] [address] Mar, [facility] [address] [id number] [address] [place] [address], [place] [address] Mar, [facility] [address] [id number] [address] [place] [address], [place] [address] Mar, [facility] [address] [id number] [address] [place] [address], [place] [address] Mar, [facility] [address] [id number] [address] [place] [address], [place] [address] Mar, [facility] [address] [id number] [address] [place] [address], [place] [address] Mar, [facility] [address] [id number] [address] [place] [address], [place] [address] Mar, [facility] [address] [id number] [address] [place] [address], [place] [address] Mar, [facility] [address] [id number] [address] [place] [address], [place] [address] Mar, [facility] [address] [id number] [address] [place] [address], [place] [address] Mar, [facility] [address] [id number] [address] [place] [address], [place] [address] Mar, [facility] [address] [id number] [address] [place] [address], [place] [address] Feb, [facility] [address] [id number] [address] [place] [address], [place] [address] 18 Jan, 2013 [facility] [address] [id number] [address] [place] [address], [place] [address] 17 Jan, 2013 [facility] [address] [id number] [address] [place] [id number] 06 Jan, 2013 [facility] [address] [id number] [address] [place] [address], [place] [address] 04 Jan, 2013 [facility] [address] [id number] [address] [place] [address], [place] [address] 03 Jan, 2013 [facility] [address] [id number] [address] [place] [address], [place] [address] Dec, [facility] [address] [id number] [address] [place] [address], [place] [address] Dec, [facility] [address] [id number] [address] [place] [address], [place] [address] Dec, [facility] [address] [id number] [address] [place] [address], [place] [address] Dec, [facility] [address] [id number] [address] [place] [address], [place] [address] Dec, [facility] [address] [id number] [address] [place] [address], [place] [address] Dec, [facility] [address] [id number] [address] [place] [address], [place] [address] Dec, [facility] [address] [id number] [address] [place] [address], [place] [address] Dec, [facility] [address] [id number] [address] [place] [address], [place] [address] Nov, [facility] [address] [id number] [address] [place] [address], [place] [address] Nov, [facility] [address] [id number] [address] [place] [address], [place] [address] Nov, [facility] [address] [id number] [address] [place] [address], [place] [address] Nov, [facility] [address] [id number] [address] [place] [address], [place] [address] Nov, [facility] [address] [id number] [address] [place] [address], [place] [address] Nov, [facility] [address] [id number] [address] [place] [address], [place] [address] Oct, [facility] [place] [address] [id number] [place] [id number] Oct, [facility] [place] [address] [id number] [place] [id number] Oct, [facility] [place] [address] [id number] [place] [id number] Oct, [facility] [place] [address] [id number] [place] [id number] Oct, [facility] [address] [id number] [address] [place] [address], [place] [address] Oct, [facility] [address] [id number] [address] [place] [address], [place] [address] Oct, [facility] [address] [id number] [address] [place] [address], [place] [address] Oct, [facility] [address] [id number] [address] [place] [address], [place] [address] Oct, [facility] [address] [id number] [address] [place] [address], [place] [address] Oct, [facility] [address] [id number] [address] [place] [address], [place] [address] Oct, [facility] [address] [id number] [address] [place] [address], [place] [address] September, [facility] [address] [id number] [address] [place] [address], [place] [address] Aug, [facility] [address] [id number] [address] [place] [address], [place] [address] Aug, [facility] [address] [id number] [address] [place] [address], [place] [address] Aug, [facility] [address] [id number] [address] [place] [address], [place] [address] Aug, [facility] [address] [id number] [address] [place] [address], [place] [address] Jul, [facility] [address] [id number] [address] [place] [address], [place] [address] Jul, [facility] [address] [id number] [address] [place] [address], [place] [address] Jul, [facility] [address] [id number] [address] [place] [address], [place] [address] 05 Jul, 2012 [facility] [address] [id number] [address] [place] [address], [place] [address] 04 Jul, 2012 [facility] [address] [id number] [address] [place] [address], [place] [address] 19 Jun, 2012 [facility] [address] [id number] [address] [place] [address], [place] [address] 13 Jun, 2012 [facility] [address] [id number] [address] [place] [address], [place] [address] Jun, [facility] [address] [id number] [address] [place] [address], [place] [address] May, [facility] [address] [id number] [address] [place] [address], [place] [address] 24 May, 2012 [facility] [address] [id number] [address] [place] [address], [place] [address] 14 May, 2012 [facility] [address] [id number] [address] [place] [address], [place] [address] May, [facility] [address] [id number] [address] [place] [address], [place] [address] May, [facility] [address] [id number] [address] [place] [address], [place] [address] May, [facility] [address] [id number] [address] [place] [address], [place] [address] 18 Apr, 2012 [facility] [address] [id number] [address] [place] [address], [place] [address] 18 Apr, 2012 [facility] [address] [id number] [address] [place] [address], [place] [address] Apr, [facility] [address] [id number] [address] [place] [address], [place] [address] 13 Apr, 2012 [facility] [address] [id number] [address] [place] [id number] Apr, [facility] [address] [id number] [address] [place] [address], [place] [address] Apr, [facility] [address] [id number] [address] [place] [address], [place] [address] Apr, [facility] [address] [id number] [address] [place] [address], [place] [address] Mar, [facility] [address] [id number] [address] [place] [address], [place] [address] Mar, [facility] [address] [id number] [address] [place] [address], [place] [address] Mar, [facility] [address] [id number] [address] [place] [address], [place] [address] Mar, [facility] [address] [id number] [address] [place] [address], [place] [address] 18 Jan, 2012 [facility] [address] [id number] [address] [place] [address], [place] [address] 10 Jan, 2012 [facility] [address] [id number] [address] [place] [id number] 06 Jan, 2012 [facility] [address] [id number] [address] [place] [id number] 06 Jan, 2012 [facility] [place] [address] [id number] [place] [id number] Dec, [facility] [address] [id number] [address] [place] [id number] Dec, [facility] [place] [address] [id number] [place] [id number] Dec, [facility] [address] [id number] [address] [place] [id number] Dec, [facility] [address] [id number] [address] [place] [id number] Dec, [facility] [address] [id number] [address] [place] [id number] Dec, [facility] [address] [facility] [id number] [address] [place] [phone] Nov, [facility] [address] [facility]NOTE 3] [id number] [address] [place] [phone] Nov, [facility] [address] [facility]NOTE 3] [id number] [address] [place] [phone] Nov, IMMUNIZATIONS No Known Immunizations SOCIAL HISTORY [...] Stent placed 08/19/2017 Hospitalization History Syncope- [facility] 12/2017 Hospitalization History heart cath ( 06/23/18-06/25/2018) Hospitalization History heart problem, overnight stay 9
--- OUTSIDE RECORDS SUMMARY | 2019-11-17 19:14 | XMS REPORT ---
Author Author Anca Lucero Doctor Organization [facility] Address Unknown Phone Unavailable Care Team Providers Care Community Advocate Name Role Phone Migration, Doctor Unavailable Unavailable PROBLEMS Type Condition ICD9-CM Code DMH81-FV Code Onset Dates Condition S tatus SNOMED Code Problem Esophageal reflux K21.9 Active 24 9876694 Problem Dyslipidemia E78.5 12 Oct, 2017 Active 3709 53013 Problem Unspecified hypothyroidism E03.9 Act hernesto 37380010 Problem Generalized anxiety disorder F41.1 Apr, 200 8 Active 23128350 Problem Shortness of breath R06.02 Apr, Active 018690819 Problem Pulmonary embolus I26.99 13 Oct, 2011 Active 92027614 Problem Nonintractable migraine G43.009 08 Oct, 2015 Act hernesto 721400666 Problem Pre-diabetes R73.03 Active 4158697 02 Problem Morbid obesity with BMI of 50.0-59.9, adult Z68.43 Active 804235635 Problem Hypothyroidism E03.9 Active 37456 008 Problem Morbid obesity E66.01 Active 61021 6002 Problem Unspecified sleep apnea G47.30 Active 22346021 Problem Personal history of pulmonary embolism Z86.711 Active 817601774 Problem Osteoarthritis of right knee M17.11 13 May, 201 0 Active 025056730 Problem Renal stones N20.0 Active 8472193 7 Problem Coronary artery disease I25.10 Active 00677992 Problem Hyperlipidemia LDL goal <70 E78.5 Ac tive 06382090 Problem Migraine with aura and without status migrainosu s, not intractable G43.109 Active 7028111 ALLERGIES No Information ENCOUNTERS Encounter Location Date Diagnosis [facility] [address] [facility] [id number] [address] [place] [address] Nov, [facility] [address] [facility] [id number] [address] [place] [address] Oct, [facility] [address] [facility] [id number] [address] [place] [address] September, [facility] [address] [id number] [address] [place] [address] September, [facility] [address] [facility] [id number] [address] [place] [address] September, [facility] [address] [facility] [id number] [address] [place] [address] Aug, [place] [address] [id number] [address] [place] [address] Aug, History of recurrent UTIs Z8 7.440 and Personal history of pulmonary embolism Z86.711 [place] [address] [id number] [address] [place] [address] Jul, History of recurrent UTIs Z8 7.440 [place] [address] [facility] [id number] [address] [place] [id number] 07 Jun, 2019 Personal history of pulmonar y embolism Z86.711 [place] [address] [id number] [address] [place] [id number] 07 Jun, 2019 Personal history of pulmonar y embolism Z86.711 [place] [address] [facility] [id number] [address] [place] [address] May, [facility] [address] [id number] [address] May, 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 and Dizziness R42 [facility] IN [facility] [address] [facility] [id number] [address] [place] [address] Apr, Non-recurrent acute suppurat hernesto otitis media of both ears without spontaneous rupture of tympanic membranes H66.003 [facility] [address] [facility] [id number] [address] [place] [address] Feb, Pre-diabetes R73.03 and Hype rlipidemia LDL goal <70 E78.5 [place] [address] [facility] [id number] [address] [place] [address] Feb, [facility] [address] [facility] [id number] [address] [place] [address] Feb, [facility] [address] [facility] [id number] [address] [place] [address] 30 Jan, 2019 [facility] [address] [facility] [id number] [address] [place] [address] Jan, [place] [address] [facility] [id number] [address] [place] [address] 18 Jan, 2019 Encounter for Medicare annua l wellness exam Z00.00 ; Hyperlipidemia LDL goal <70 E78.5 ; Coronary artery disease I25.10 ; Hypothyroidism E03.9 ; Osteoarthritis of right knee M17.11 ; Morbid obesity with BMI of 50.0-59.9, adult Z68.43 and Esophageal reflux K21.9 [place] [address] [place] [id number] [address] [place] [address] Jan, Dysuria R30.0 and Hematuria, unspecified type R31.9 [place] [address] [facility] [id number] [address] [place] [address] Jan, Hematuria, unspecified type R31.9 [place] [address] [facility] [id number] [address] [place] [address] Dec, Hematuria, unspecified type R31.9 [place] [address] [facility] [id number] [address] [place] [address] Nov, Hematuria, unspecified type R31.[id number] [place] [address] Nov, Other microscopic hematuria R31.29 [facility] [address] [facility] [id number] [address] [place] [address] Nov, Vaginal gena B37.3 ; Othe r microscopic hematuria R31.29 and Morbid obesity E66.01 [place] [address] [facility] [id number] [address] [place] [address] Nov, [facility] [address] [place] [id number] [place] [address] Nov, [facility] [address] [place] [id number] [place] [address] Nov, UTI symptoms R39.9 and Morbi d obesity E66.01 [facility] [address] [address] Nov, [facility] [address] [address] September, [facility] [address] [address] September, [facility] [address] [address] Aug, Right foot pain M79.671 and Morbid obesity E66.01 [facility] [address] [address] Jul, Right foot pain M79.671 and Morbid obesity E66.01 [facility] [address] [address] Jul, Injury of right foot, initia l encounter S99.921A and Morbid obesity E66.01 [facility] [address] [address] Jul, Recurrent syncope R55 and Mo rbid obesity E66.01 [facility] [address] [place] [id number] [address] [place] [address] Jul, [facility] [address] [address] Jun, Hematuria, unspecified type R31.9 and BMI 50.0-59.9, adult Z68.43 [facility] [address] [address] Jun, [facility] [address] [id number] [place] [address] Jun, roasterman current use of ant icoagulant Z79.01 [facility] [address] [place] [id number] [address] [place] [address] May, Ankle pain, right M25.571 an d BMI 50.0-59.9, adult Z68.43 [facility] [address] [facility] [id number] [address] [place] [address] May, [facility] [address] [place] [address] May, [facility] [address] [place] [id number] [address] [place] [address] Apr, [place] [address] [place] [id number] [address] [place] [address] Apr, [facility] [address] [place] [id number] [address] [place] [address] Apr, [facility] [address] [place] [address] Apr, BMI 50.0-59.9, adult Z68.43 and Weakness R53.1 [facility] [address] [place] [id number] [address] [place] [address] Apr, [facility] [address] [place] [id number] [address] [place] [address] Apr, Dysuria R30.0 ; Hematuria R3 1.9 ; Renal lithiasis N20.0 and BMI 50.0-59.9, adult Z68.43 [facility] [address] [place] [id number] [address] [place] [address] Apr, [facility] [address] [place] [id number] [address] [place] [address] Apr, [facility] [address] [address] 05 Apr, 2018 Hypothyroidism E03.[address] [address] 04 Apr, 2018 Burning with urination R30.0 ; Type 2 diabetes mellitus with diabetic neuropathic arthropathy, without long-term current use of insulin E11.610 ; Acute bilateral low back pain without sciatica M54.5 and BMI 50.0- 59.9, adult Z68.43 [place] [address] [address] 02 Mar, 2018 Hypothyroidism E03.[address] [address] Feb, [facility] [place] [address] [address] 15 Jan, [address] [address] 07 Jan, 2018 Acute non-recurrent maxillar y sinusitis J01.00 and BMI 50.0-59.9, adult Z68.43 [facility] [place] [address] [address] 04 Jan, 2018 Congestion of upper respirat ory tract J98.8 and BMI 50.0-59.9, adult Z68.[address] [address] Dec, Type 2 diabetes mellitus wit h diabetic neuropathic arthropathy, without long-term current use of insulin E11.610 ; Morbid obesity with BMI of 50.0-59.9, adult Z68.43 ; Hypothyroidism E03.9 ; Coronary artery disease I25.10 ; Hyperlipidemia LDL goal <70 E78.5 ; Right lower quadrant abdominal pain R10.31 and Acute cystitis with hematuria N30.01 [facility] IN [address] [address] Dec, Migraine with aura and witho ut status migrainosus, not intractable G43.109 ; Dehydration symptoms R63.8 and BMI 50.0-59.9, adult Z68.43 [place] [address] [address] Oct, [place] [address] [address] Oct, [place] [address] [address] Oct, [place] [address] [address] September, [address] [address] September, Type 2 diabetes mellitus wit h diabetic neuropathic arthropathy, without long-term current use of insulin E11.610 ; Hyperlipidemia, unspecified hyperlipidemia type E78.5 ; Personal history of pulmonary embolism Z86.711 ; Coronary artery disease I25.10 and Hypothyroidism E03.9 [place] [address] [address] September, [address] [address] Aug, Type 2 diabetes mellitus wit h [...] and with status migrainosus G43.011 [place] [address] [address] Aug, [place] [address] [address] Aug, [place] [address] [place] [address] Jul, Renal stones N20.0 [facility] [address] [address] Jun, Back pain M54.9 ; Kidney sto radha N20.0 and BMI 50.0-59.9, adult Z68.43 [place] [address] [address] Jun, [place] [address] [address] Apr, [place] [address] [address] Apr, [place] [address] [address] Apr, Right foot pain M79.671 ; Ac ronnie gout involving toe of right foot, 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 and Arthritis M19.90 [facility] [address] [address] 06 Apr, 2017 Gastroesophageal reflux dise ase without esophagitis K21.9 [place] [address] [address] 16 Mar, 2017 Hypothyroidism, unspecified E03.9 [place] [address] [address] Feb, [place] [address] [address] 25 Jan, 2017 Cervicalgia of occipito-atla nto-axial region M54.2 and Persistent headaches R51 [place] [address] [address] 20 Jan, 2017 [place] [address] [address] 12 Jan, 2017 Intractable migraine without aura and with status migrainosus G43.011 ; Cervical spine pain M54.2 ; Hyperlipidemia, unspecified hyperlipidemia type E78.5 ; Hypothyroidism E03.9 and Metabolic syndrome E88.81 [place] [address] [address] Jan, Hypothyroidism, unspecified E03.9 [place] [address] [address] Dec, Hypothyroidism, unspecified E03.9 [place] [address] [address] Dec, Hypothyroidism E03.9 [place] [address] [address] Nov, Laceration of left great toe w/o foreign body w/o damage to nail, initial encounter S91.112A [facility] [address] [address] Oct, Pain in left knee M25.562 an d Arthritis M19.90 [place] [address] [address] Oct, Hypothyroidism, unspecified E03.9 and Hyperlipidemia, unspecified hyperlipidemia type E78.5 [place] [address] [address] Oct, Gastroesophageal reflux dise ase without esophagitis K21.9 [place] [address] [address] 14 Oct, 2016 Metabolic syndrome E88.81 ; Personal history of pulmonary embolism Z86.711 ; Other specified hypothyroidism E03.8 and Hyperlipidemia, unspecified hyperlipidemia type E78.5 [place] [address] [address] 13 Oct, 2016 Personal history of pulmonar y embolism Z86.711 ; Dysuria R30.0 ; Metabolic syndrome E88.81 ; Other specified hypothyroidism E03.8 ; Hyperlipidemia, unspecified hyperlipidemia type E78.5 and Morbid obesity with BMI of 50.0-59.9, adult Z68.43 [place] [address] [address] September, [facility] [place] [address] [address] September, Wrist pain, left M25.532 and Acute pain of left knee M25.[address] [address] Jul, Dysuria R30.[address] [address] Jul, Dysuria R30.0 [place] [address] [address] Jul, Left lower quadrant pain R10 .[address] [address] Jul, [place] [address] [address] Jul, Coronary artery disease I25. 10 ; Family history of diabetes mellitus Z83.3 ; Morbid obesity with BMI of 50.0-59.9, adult Z68.43 ; Metabolic syndrome E88.81 ; Personal history of pulmonary embolism Z86.711 ; Gastroesophageal reflux disease without esophagitis K21.9 ; Hypothyroidism, unspecified E03.9 ; Hyperlipidemia, unspecified hyperlipidemia type E78.5 and Left lower quadrant pain R10.32 [facility] [place] [address] [place] [id number] [address] [place] [address] Jul, [facility] [address] [address] Jul, Morbid obesity with BMI of 5 0.0-59.9, adult Z68.43 [facility] [place] [id number] [place] [address] Jul, Generalized abdominal pain R 10.84 [facility] [place] [address] [place] [id number] [address] [place] [address] 02 Jun, 2016 Muscle strain of right upper back, initial encounter S29.012A [facility] IN [place] [address] [address] May, Foreign body (FB) in soft ti ssue M79.5 [place] [address] [address] Mar, Hypothyroidism, unspecified E03.9 and Arthritis M19.90 [place] [address] [address] Feb, Coronary artery disease I25. 10 ; Morbid obesity with BMI of 50.0- 59.9, adult Z68.43 ; Metabolic syndrome E88.81 ; Gastroesophageal reflux disease without esophagitis K21.9 ; Hypothyroidism, unspecified E03.9 ; Personal history of pulmonary embolism Z86.711 and Hyperlipidemia, unspecified hyperlipidemia type E78.5 [place] [address] [address] Feb, [facility] [place] [address] [address] Jan, Acute right-sided thoracic b ack pain M54.[address] [address] Jan, Acute pain of left knee M25. 562 [place] [address] [address] 18 Dec, 2015 Dysuria R30.0 ; Metabolic sy ndrome E88.81 ; Acute pain of left knee M25.562 ; Acute cystitis with hematuria N30.01 and Acute left eye pain H57.12 [place] [address] [address] Dec, [place] [address] [address] Dec, [place] [id number] [id number] [address] [place] [address] Dec, Hypothyroidism, unspecified E03.9 [place] [address] [id number] [address] [place] [address] Dec, [place] [address] [facility] [id number] [address] [place] [address] Nov, Peripheral edema R60.9 and A cute pain of left knee M25.562 [facility] [place] [address] [id number] [address] [place] [address] September, [place] [address] [facility] [id number] [address] [place] [address] September, Metabolic syndrome E88.81 an d Allergy, subsequent encounter T78.40XD [facility] [place] [address] [facility] [id number] [address] [place] [address] September, Muscle strain T14.8 [place] [address] [facility] [id number] [address] [place] [address] Aug, Chest pressure R07.89 ; [place] bolic syndrome E88.81 ; Morbid obesity with BMI of 50.0-59.9, adult Z68.43 ; Esophageal reflux 530.81 and Shortness of breath R06.02 [place] [address] [facility] [id number] [address] [place] [address] Aug, [place] [address] [facility] [id number] [address] [place] [address] Aug, [place] [address] [facility] [id number] [address] [place] [address] Aug, Hypothyroidism, unspecified E03.9 [place] [address] [facility] [id number] [address] [place] [address] Aug, Routine health maintenance Z 00.00 [facility] [place] [address] [facility] [id number] [address] [place] [address] Aug, [place] [address] [place] [id number] [address] [place] [address] Jul, 2016 Routine health maintenance Z 00.00 ; Family history of diabetes mellitus Z83.3 ; Family history of cancer Z80.9 and Morbid obesity with BMI of 50.0-59.9, adult Z68.43 [facility] IN [facility] [address] [place] [id number] [address] [place] [address] Jul, Allergic rhinitis J30.9 and Postnasal drip R09.82 [place] [address] [place] [id number] [address] [place] [address] Jul, Influenza J11.1 [facility] [place] [address] [place] [id number] [address] [place] [address] 08 Jul, 2015 Dysuria R30.0 [place] [address] [place] [id number] [address] [place] [address] Apr, [place] [address] [address] Mar, Acute upper respiratory infe ction, unspecified J06.9 and Hypothyroidism E03.9 [place] [address] [place] [id number] [address] [place] [address] Mar, [place] [address] [place] [id number] [address] [place] [address] Feb, Coronary artery disease I25. 10 [place] [address] [place] [id number] [address] [place] [address] Feb, Left foot pain M79.672 [place] [address] [place] [id number] [address] [place] [address] Jan, UTI (urinary tract infection ) 599.0 [place] [address] [place] [id number] [address] [place] [address] Jan, Urinary tract infection, sit e not specified 599.0 [place] [address] [place] [id number] [address] [place] [address] Jan, Urinary tract infection, sit e not specified 599.0 [facility] [address] [facility] [id number] [address] [place] [address] Jan, [facility] [address] [facility] [id number] [address] [place] [address] Dec, Headache 784.0 [facility] [address] [facility] [id number] [address] [place] [address] Dec, Urinary tract infection, sit e not specified 599.0 [place] [address] [facility] [id number] [address] [place] [address] Dec, Urinary tract infection, sit e not specified 599.0 [place] [address] [place] [id number] [address] [place] [address] Dec, Urinary tract infection, sit e not specified 599.0 [place] [address] [place] [id number] [address] [place] [address] Nov, Unspecified sleep apnea 780. 57 ; Encounter for long-term (current) use of anticoagulants V58.61 ; Routine general medical examination at health care facility V70.0 and Arthritis of both knees 716.96 [place] [address] [place] [id number] [address] [place] [address] September, Cat bite of hand 882.0 and R ectal bleeding 569.3 [facility] [address] [place] [id number] [address] [place] [address] Aug, [facility] [address] [facility] [id number] [address] [place] [address] Aug, [place] [address] [place] [id number] [address] [place] [address] Jul, [facility] [address] [place] [id number] [address] [place] [address] Jul, [facility] [place] [facility] [address] [id number] [address] [place] [address], [place] [address] Jul, [facility] [address] [id number] [address] [place] [address], [place] [address] Jul, [facility] [address] [id number] [address] [place] [address], [place] [address] Jul, [facility] [address] [id number] [address] [place] [address], [place] [address] Jul, [facility] [address] [id number] [address] [place] [address], [place] [address] Jul, [facility] [address] [id number] [address] [place] [address], [place] [id number] Jul, [facility] [address] [id number] [address] [place] [address], [place] [id number] May, [facility] [address] [id number] [address] [place] [address], [place] [id number] May, [facility] [address] [id number] [address] [place] [address], [place] [id number] May, [facility] [address] [id number] [address] [place] [address], [place] [phone] May, [facility] [address] [id number] [address] [place] [address], [place] [phone] May, [facility] [place] [address] [id number] [address] [place] [address], [place] [id number] May, [facility] [address] [id number] [address] [place] [address], [place] [address] May, [facility] [address] [id number] [address] [place] [address], [place] [id number] Mar, [facility] [address] [id number] [address] [place] [address], [place] [phone] Mar, [facility] [address] [id number] [address] [place] [address], [place] [id number] 08 Jan, 2014 [facility] [address] [id number] [address] [place] [address], [place] [id number] 08 Jan, 2013 [facility] [address] [id number] [address] [place] [address], [place] [address] Jan, 2013 [facility] [address] [id number] [address] [place] [address], [place] [address] Jan, 2013 [facility] [address] [id number] [address] [place] [address], [place] [address] Jan, 2013 [facility] [address] [id number] [address] [place] [address], [place] [address] Jan, 2013 [facility] [address] [id number] [address] [place] [address], [place] [address] Dec, [facility] [address] [id number] [address] [place] [address], [place] [address] Dec, [facility] [address] [id number] [address] [place] [address], [place] [address] Dec, [facility] [address] [id number] [address] [place] [address], [place] [address] Dec, [facility] [address] [id number] [address] [place] [address], [place] [address] Dec, [facility] [address] [id number] [address] [place] [address], [place] [address] Dec, [facility] [address] [id number] [address] [place] [address], [place] [address] Dec, [facility] [address] [id number] [address] [place] [address], [place] [address] Dec, [facility] [address] [id number] [address] [place] [address], [place] [address] Dec, [facility] [address] [id number] [address] [place] [address], [place] [address] Dec, [facility] [address] [id number] [address] [place] [address], [place] [address] Nov, [facility] [address] [id number] [address] [place] [address], [place] [address] Nov, [facility] [address] [id number] [address] [place] [address], [place] [address] September, [facility] [address] [id number] [address] [place] [address], [place] [address] September, [facility] [address] [id number] [address] [place] [address], [place] [address] September, [facility] [address] [id number] [address] [place] [address], [place] [address] September, [facility] [address] [id number] [address] [place] [address], [place] [address] Aug, [facility] [address] [id number] [address] [place] [address], [place] [address] Aug, [facility] [address] [id number] [address] [place] [address], [place] [address] Aug, [facility] [address] [id number] [address] [place] [address], [place] [address] Aug, [facility] [address] [id number] [address] [place] [address], [place] [address] Aug, [facility] [address] [id number] [address] [place] [address], [place] [address] Aug, [facility] [address] [id number] [address] [place] [address], [place] [address] Aug, [facility] [address] [id number] [address] [place] [address], [place] [address] Aug, [facility] [address] [id number] [address] [place] [address], [place] [address] Aug, [facility] [address] [id number] [address] [place] [address], [place] [address] Aug, [facility] [address] [id number] [facility] [place] [address] 07 Aug, 2013 [facility] [address] [id number] [address] [place] [address], [place] [address] 07 Aug, 2013 [facility] [address] [id number] [address] [place] [address], [place] [address] Jul, [facility] [address] [id number] [address] [place] [address], [place] [address] Jul, [facility] [address] [id number] [address] [place] [address], [place] [address] Jul, [facility] [address] [id number] [address] [place] [address], [place] [address] Jul, [facility] [address] [id number] [address] [place] [address], [place] [address] Jul, [facility] [address] [id number] [address] [place] [address], [place] [address] Jul, [facility] [address] [id number] [address] [place] [address], [place] [address] 05 Jul, 2013 [facility] [address] [id number] [address] [place] [address], [place] [address] 05 Jul, 2013 [facility] [address] [id number] [address] [place] [address], [place] [address] Jul, [facility] [address] [id number] [address] [place] [address], [place] [address] Jul, [facility] [address] [id number] [address] [place] [address], [place] [address] Jun, [facility] [address] [id number] [address] [place] [address], [place] [address] Jun, [facility] [address] [id number] [address] [place] [address], [place] [address] 17 Jun, 2013 [facility] [address] [id number] [address] [place] [address], [place] [address] 17 Jun, 2013 [facility] [address] [id number] [address] [place] [address], [place] [address] Jun, [facility] [address] [id number] [address] [place] [address], [place] [address] Jun, [facility] [address] [id number] [address] [place] [address], [place] [address] Jun, [facility] [address] [id number] [address] [place] [address], [place] [address] Jun, [facility] [address] [id number] [address] [place] [address], [place] [address] Jun, [facility] [address] [id number] [address] [place] [address], [place] [address] Jun, [facility] [address] [id number] [address] [place] [address], [place] [address] Jun, [facility] [address] [id number] [address] [place] [address], [place] [address] Jun, [facility] [address] [id number] [address] [place] [address], [place] [address] May, [facility] [address] [id number] [address] [place] [address], [place] [address] May, [facility] [address] [id number] [address] [place] [address], [place] [address] May, [facility] [address] [id number] [address] [place] [address], [place] [address] May, [facility] [address] [id number] [address] [place] [address], [place] [address] May, [facility] [address] [id number] [address] [place] [address], [place] [address] May, [facility] [address] [id number] [address] [place] [address], [place] [address] May, [facility] [address] [id number] [address] [place] [address], [place] [address] May, [facility] [address] [id number] [address] [place] [address], [place] [address] May, [facility] [address] [id number] [address] [place] [address], [place] [address] May, [facility] [address] [id number] [address] [place] [address], [place] [address] May, [facility] [address] [id number] [address] [place] [address], [place] [address] May, [facility] [address] [id number] [address] [place] [address], [place] [address] May, [facility] [address] [id number] [address] [place] [address], [place] [address] May, [facility] [address] [id number] [address] [place] [address], [place] [address] May, [facility] [address] [id number] [address] [place] [address], [place] [address] Apr, [facility] [address] [id number] [address] [place] [address], [place] [address] Apr, [facility] [address] [id number] [address] [place] [address], [place] [address] Apr, [facility] [address] [id number] [address] [place] [address], [place] [address] Apr, [facility] [address] [id number] [address] [place] [address], [place] [address] Mar, [facility] [address] [id number] [address] [place] [address], [place] [address] Mar, [facility] [address] [id number] [address] [place] [address], [place] [address] Mar, [facility] [address] [id number] [address] [place] [address], [place] [address] Mar, [facility] [address] [id number] [address] [place] [address], [place] [address] Mar, [facility] [address] [id number] [address] [place] [address], [place] [address] Mar, [facility] [address] [id number] [address] [place] [address], [place] [address] Mar, [facility] [address] [id number] [address] [place] [address], [place] [address] Mar, [facility] [address] [id number] [address] [place] [address], [place] [address] Mar, [facility] [address] [id number] [address] [place] [address], [place] [address] Mar, [facility] [address] [id number] [address] [place] [address], [place] [address] Mar, [facility] [address] [id number] [address] [place] [address], [place] [address] Mar, [facility] [address] [id number] [address] [place] [address], [place] [address] Feb, [facility] [address] [id number] [address] [place] [address], [place] [address] 18 Jan, 2013 [facility] [address] [id number] [address] [place] [address], [place] [address] 17 Jan, 2013 [facility] [address] [id number] [address] [place] [address] 06 Jan, 2013 [facility] [address] [id number] [address] [place] [address], [place] [address] 04 Jan, 2013 [facility] [address] [id number] [address] [place] [address], [place] [address] 03 Jan, 2013 [facility] [address] [id number] [address] [place] [address], [place] [address] Dec, [facility] [address] [id number] [address] [place] [address], [place] [address] Dec, [facility] [address] [id number] [address] [place] [address], [place] [address] Dec, [facility] [address] [id number] [address] [place] [address], [place] [address] Dec, [facility] [address] [id number] [address] [place] [address], [place] [address] Dec, [facility] [address] [id number] [address] [place] [address], [place] [address] Dec, [facility] [address] [id number] [address] [place] [address], [place] [address] Dec, [facility] [address] [id number] [address] [place] [address], [place] [address] Dec, [facility] [address] [id number] [address] [place] [address], [place] [address] Nov, [facility] [address] [id number] [address] [place] [address], [place] [address] Nov, [facility] [address] [id number] [address] [place] [address], [place] [address] Nov, [facility] [address] [id number] [address] [place] [address], [place] [address] Nov, [facility] [address] [id number] [address] [place] [address], [place] [address] Nov, [facility] [address] [id number] [address] [place] [address], [place] [address] Nov, [facility] [address] [id number] [address] [place] [address], [place] [address] Oct, [facility] [place] [address] [id number] [place] [id number] Oct, [facility] [place] [address] [id number] [place] [id number] Oct, [facility] [place] [address] [id number] [place] [id number] Oct, [facility] [place] [address] [id number] [place] [id number] Oct, [facility] [address] [id number] [address] [place] [address], [place] [address] Oct, [facility] [address] [id number] [address] [place] [address], [place] [address] Oct, [facility] [address] [id number] [address] [place] [address], [place] [address] Oct, [facility] [address] [id number] [address] [place] [address], [place] [address] Oct, [facility] [address] [id number] [address] [place] [address], [place] [address] Oct, [facility] [address] [id number] [address] [place] [address], [place] [address] Oct, [facility] [address] [id number] [address] [place] [address], [place] [address] September, [facility] [address] [id number] [address] [place] [address], [place] [address] Aug, [facility] [address] [id number] [address] [place] [address], [place] [address] Aug, [facility] [address] [id number] [address] [place] [address], [place] [address] Aug, [facility] [address] [id number] [address] [place] [address], [place] [address] Aug, [facility] [address] [id number] [address] [place] [address], [place] [address] Jul, [facility] [address] [id number] [address] [place] [address], [place] [address] Jul, [facility] [address] [id number] [address] [place] [address], [place] [address] Jul, [facility] [address] [id number] [address] [place] [address], [place] [address] 05 Jul, 2012 [facility] [address] [id number] [address] [place] [address], [place] [address] 04 Jul, 2012 [facility] [address] [id number] [address] [place] [address], [place] [address] 19 Jun, 2012 [facility] [address] [id number] [address] [place] [address], [place] [address] 13 Jun, 2012 [facility] [address] [id number] [address] [place] [address], [place] [address] Jun, [facility] [address] [id number] [address] [place] [address], [place] [address] May, [facility] [address] [id number] [address] [place] [address], [place] [address] 24 May, 2012 [facility] [address] [id number] [address] [place] [address], [place] [address] 14 May, 2012 [facility] [address] [id number] [address] [place] [address], [place] [address] May, [facility] [address] [id number] [address] [place] [address], [place] [address] May, [facility] [address] [id number] [address] [place] [address], [place] [address] May, [facility] [address] [id number] [address] [place] [address], [place] [address] 18 Apr, 2012 [facility] [address] [id number] [address] [place] [address], [place] [address] 18 Apr, 2012 [facility] [address] [id number] [address] [place] [address], [place] [address] Apr, [facility] [address] [id number] [address] [place] [address], [place] [address] 13 Apr, 2012 [facility] [address] [id number] [address] [place] [address] Apr, [facility] [address] [id number] [address] [place] [address], [place] [address] Apr, [facility] [address] [id number] [address] [place] [address], [place] [address] Apr, [facility] [address] [id number] [address] [place] [address], [place] [address] Mar, [facility] [address] [id number] [address] [place] [address], [place] [address] Mar, [facility] [address] [id number] [address] [place] [address], [place] [address] Mar, [facility] [address] [id number] [address] [place] [address], [place] [address] Mar, [facility] [address] [id number] [address] [place] [address], [place] [address] 18 Jan, 2012 [facility] [address] [id number] [address] [place] [address], [place] [address] 10 Jan, 2012 [facility] [address] [id number] [address] [place] [id number] 06 Jan, 2012 [facility] [address] [id number] [address] [place] [address] 06 Jan, 2012 [facility] [place] [address] [id number] [place] [id number] Dec, [facility] [address] [id number] [address] [place] [address] Dec, [facility] [place] [address] [id number] [place] [id number] Dec, [facility] [address] [id number] [address] [place] [address] Dec, [facility] [address] [id number] [address] [place] [address] Dec, [facility] [address] [id number] [address] [place] [address] Dec, [facility] [address] [facility] [id number] [address] [place] [id number] Nov, [facility] [address] [facility] [id number] [address] [place] [id number] Nov, [facility] [address] [facility] [id number] [address] [place] [id number] Nov, IMMUNIZATIONS No Known Immunizations SOCIAL HISTORY [...] Stent placed 08/19/2017 Hospitalization History Syncope- [facility] 12/2017 Hospitalization History heart cath ( 06/23/18-06/25/2018) Hospitalization History heart problem, overnight stay 9
--- OUTSIDE RECORDS SUMMARY | 2019-11-17 19:15 | XMS REPORT ---
Author Author Anca Lucero Doctor Organization [facility] Address Unknown Phone Unavailable Care Team Providers Care Artist Consultant Name Role Phone Migration, Doctor Unavailable Unavailable PROBLEMS Type Condition ICD9-CM Code CFL52-GS Code Onset Dates Condition S tatus SNOMED Code Problem Esophageal reflux K21.9 Active 24 1353759 Problem Dyslipidemia E78.5 12 Oct, 2017 Active 3709 28185 Problem Unspecified hypothyroidism E03.9 Act hernesto 77377334 Problem Generalized anxiety disorder F41.1 Apr, 200 8 Active 24043616 Problem Shortness of breath R06.02 Apr, Active 350603400 Problem Pulmonary embolus I26.99 13 Oct, 2011 Active 67398304 Problem Nonintractable migraine G43.009 08 Oct, 2015 Act hernesto 494844056 Problem Pre-diabetes R73.03 Active 2054027 02 Problem Morbid obesity with BMI of 50.0-59.9, adult Z68.43 Active 481324923 Problem Hypothyroidism E03.9 Active 27745 008 Problem Morbid obesity E66.01 Active 07432 6002 Problem Unspecified sleep apnea G47.30 Active 28740946 Problem Personal history of pulmonary embolism Z86.711 Active 051048036 Problem Osteoarthritis of right knee M17.11 13 May, 201 0 Active 436287985 Problem Renal stones N20.0 Active 3444120 7 Problem Coronary artery disease I25.10 Active 84261331 Problem Hyperlipidemia LDL goal <70 E78.5 Ac tive 73014530 Problem Migraine with aura and without status migrainosu s, not intractable G43.109 Active 1098273 ALLERGIES No Information ENCOUNTERS Encounter Location Date Diagnosis [facility] [address] [facility] [id number] [address] [place] [id number] Nov, [facility] [address] [facility] [id number] [address] [place] [address] Oct, [facility] [address] [facility] [id number] [address] [place] [id number] September, [facility] [address] [id number] [address] [place] [address] September, [facility] [address] [facility] [id number] [address] [place] [address] September, [facility] [address] [facility] [id number] [address] [place] [address] Aug, [place] [address] [id number] [address] [place] [address] Aug, History of recurrent UTIs Z8 7.440 and Personal history of pulmonary embolism Z86.711 [place] [address] [id number] [address] [place] [address] Jul, History of recurrent UTIs Z8 7.440 [place] [address] [facility] [id number] [address] [place] [address] 07 Jun, 2019 Personal history of pulmonar y embolism Z86.711 [place] [address] [id number] [address] [place] [address] 07 Jun, 2019 Personal history of pulmonar y embolism Z86.711 [place] [address] [facility] [id number] [address] [place] [address] May, [facility] [address] [id number] [address] May, 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 and Dizziness R42 [facility] [address] [facility] [id number] [address] [place] [address] Apr, Non-recurrent acute suppurat hernesto otitis media of both ears without spontaneous rupture of tympanic membranes H66.003 [facility] [address] [facility] [id number] [address] [place] [address] Feb, Pre-diabetes R73.03 and Hype rlipidemia LDL goal <70 E78.5 [place] [address] [facility] [id number] [address] [place] [address] Feb, [facility] [address] [facility] [id number] [address] [place] [address] Feb, [facility] [address] [facility] [id number] [address] [place] [id number] 30 Jan, 2019 [facility] [address] [facility] [id number] [address] [place] [address] Jan, [place] [address] [facility] [id number] [address] [place] [address] 18 Jan, 2019 Encounter for Medicare annua l wellness exam Z00.00 ; Hyperlipidemia LDL goal <70 E78.5 ; Coronary artery disease I25.10 ; Hypothyroidism E03.9 ; Osteoarthritis of right knee M17.11 ; Morbid obesity with BMI of 50.0-59.9, adult Z68.43 and Esophageal reflux K21.9 [place] [address] [place] [id number] [address] [place] [phone] Jan, Dysuria R30.0 and Hematuria, unspecified type R31.9 [place] [address] [facility] [id number] [address] [place] [address] Jan, Hematuria, unspecified type R31.9 [place] [address] [facility] [id number] [address] [place] [address] Dec, Hematuria, unspecified type R31.9 [place] [address] [facility] [id number] [address] [place] [address] Nov, Hematuria, unspecified type R31.[id number] [place] [phone] Nov, Other microscopic hematuria R31.29 [facility] [address] [facility] [id number] [address] [place] [address] Nov, Vaginal gena B37.3 ; Othe r microscopic hematuria R31.29 and Morbid obesity E66.01 [place] [address] [facility] [id number] [address] [place] [address] Nov, [facility] [address] [place] [id number] [place] [address] Nov, [facility] [address] [place] [id number] [place] [phone] Nov, UTI symptoms R39.9 and Morbi d obesity E66.01 [facility] [address] [address] Nov, [facility] [address] [address] September, [facility] [address] [address] September, [facility] [address] [address] Aug, Right foot pain M79.671 and Morbid obesity E66.01 [facility] [address] [address] Jul, Right foot pain M79.671 and Morbid obesity E66.01 [facility] [address] [address] Jul, Injury of right foot, initia l encounter S99.921A and Morbid obesity E66.01 [facility] [address] [address] Jul, Recurrent syncope R55 and Mo rbid obesity E66.01 [facility] [address] [place] [id number] [address] [place] [address] Jul, [facility] [address] [address] Jun, Hematuria, unspecified type R31.9 and BMI 50.0-59.9, adult Z68.43 [facility] [address] [address] Jun, [facility] [address] [id number] [place] [address] Jun, 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 [facility] [address] [place] [id number] [address] [place] [address] May, Ankle pain, right M25.571 an d BMI 50.0-59.9, adult Z68.43 [facility] [address] [facility] [id number] [address] [place] [address] May, [facility] [id number] [place] [address] May, [facility] [address] [place] [id number] [address] [place] [address] Apr, [place] [address] [place] [id number] [address] [place] [address] Apr, [facility] [address] [place] [id number] [address] [place] [address] Apr, [facility] [address] [place] [address] Apr, BMI 50.0-59.9, adult Z68.43 and Weakness R53.1 [facility] [address] [place] [id number] [address] [place] [address] Apr, [facility] [address] [place] [id number] [address] [place] [address] Apr, Dysuria R30.0 ; Hematuria R3 1.9 ; Renal lithiasis N20.0 and BMI 50.0-59.9, adult Z68.43 [facility] [address] [place] [id number] [address] [place] [address] Apr, [facility] [address] [place] [id number] [address] [place] [address] Apr, [facility] [address] [address] 05 Apr, 2018 Hypothyroidism E03.[address] [address] 04 Apr, 2018 Burning with urination R30.0 ; Type 2 diabetes mellitus with diabetic neuropathic arthropathy, without long-term current use of insulin E11.610 ; Acute bilateral low back pain without sciatica M54.5 and BMI 50.0- 59.9, adult Z68.43 [place] [address] [address] 02 Mar, 2018 Hypothyroidism E03.[address] [address] Feb, [facility] [place] [address] [address] 15 Jan, [address] [address] 07 Jan, 2018 Acute non-recurrent maxillar y sinusitis J01.00 and BMI 50.0-59.9, adult Z68.43 [facility] [place] [address] [address] 04 Jan, 2018 Congestion of upper respirat ory tract J98.8 and BMI 50.0-59.9, adult Z68.[address] [address] Dec, Type 2 diabetes mellitus wit h diabetic neuropathic arthropathy, without long-term current use of insulin E11.610 ; Morbid obesity with BMI of 50.0-59.9, adult Z68.43 ; Hypothyroidism E03.9 ; Coronary artery disease I25.10 ; Hyperlipidemia LDL goal <70 E78.5 ; Right lower quadrant abdominal pain R10.31 and Acute cystitis with hematuria N30.01 [facility] [address] [address] Dec, Migraine with aura and witho ut status migrainosus, not intractable G43.109 ; Dehydration symptoms R63.8 and BMI 50.0-59.9, adult Z68.43 [place] [address] [address] Oct, [place] [address] [address] Oct, [place] [address] [address] Oct, [place] [address] [address] September, [address] [address] September, Type 2 diabetes mellitus wit h diabetic neuropathic arthropathy, without long-term current use of insulin E11.610 ; Hyperlipidemia, unspecified hyperlipidemia type E78.5 ; Personal history of pulmonary embolism Z86.711 ; Coronary artery disease I25.10 and Hypothyroidism E03.9 [place] [address] [address] September, [address] [address] Aug, Type 2 diabetes mellitus wit h [...] without aura and with status migrainosus G43.011 [place] [address] [address] Aug, [place] [address] [address] Aug, [place] [address] [address] [place] [address] Jul, Renal stones N20.0 [facility] [address] [address] Jun, Back pain M54.9 ; Kidney sto radha N20.0 and BMI 50.0-59.9, adult Z68.43 [place] [address] [address] Jun, [place] [address] [address] Apr, [place] [address] [address] Apr, [place] [address] [address] Apr, Right foot pain M79.671 ; Ac ronnie gout involving toe of right foot, 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 and Arthritis M19.90 [facility] [address] [address] 06 Apr, 2017 Gastroesophageal reflux dise ase without esophagitis K21.9 [place] [address] [address] 16 Mar, 2017 Hypothyroidism, unspecified E03.9 [place] [address] [address] Feb, [place] [address] [address] 25 Jan, 2017 Cervicalgia of occipito-atla nto-axial region M54.2 and Persistent headaches R51 [place] [address] [address] 20 Jan, 2017 [place] [address] [address] 12 Jan, 2017 Intractable migraine without aura and with status migrainosus G43.011 ; Cervical spine pain M54.2 ; Hyperlipidemia, unspecified hyperlipidemia type E78.5 ; Hypothyroidism E03.9 and Metabolic syndrome E88.81 [place] [address] [address] Jan, Hypothyroidism, unspecified E03.9 [place] [address] [address] Dec, Hypothyroidism, unspecified E03.9 [place] [address] [address] Dec, Hypothyroidism E03.9 [place] [address] [address] Nov, Laceration of left great toe w/o foreign body w/o damage to nail, initial encounter S91.112A [facility] [address] [address] Oct, Pain in left knee M25.562 an d Arthritis M19.90 [place] [address] [address] Oct, Hypothyroidism, unspecified E03.9 and Hyperlipidemia, unspecified hyperlipidemia type E78.5 [place] [address] [address] Oct, Gastroesophageal reflux dise ase without esophagitis K21.9 [place] [address] [address] 14 Oct, 2016 Metabolic syndrome E88.81 ; Personal history of pulmonary embolism Z86.711 ; Other specified hypothyroidism E03.8 and Hyperlipidemia, unspecified hyperlipidemia type E78.5 [place] [address] [address] 13 Oct, 2016 Personal history of pulmonar y embolism Z86.711 ; Dysuria R30.0 ; Metabolic syndrome E88.81 ; Other specified hypothyroidism E03.8 ; Hyperlipidemia, unspecified hyperlipidemia type E78.5 and Morbid obesity with BMI of 50.0-59.9, adult Z68.43 [place] [address] [address] September, [facility] [place] [address] [address] September, Wrist pain, left M25.532 and Acute pain of left knee M25.[address] [address] Jul, Dysuria R30.[address] [address] Jul, Dysuria R30.0 [place] [address] [address] Jul, Left lower quadrant pain R10 .[address] [address] Jul, [place] [address] [address] Jul, Coronary artery disease I25. 10 ; Family history of diabetes mellitus Z83.3 ; Morbid obesity with BMI of 50.0-59.9, adult Z68.43 ; Metabolic syndrome E88.81 ; Personal history of pulmonary embolism Z86.711 ; Gastroesophageal reflux disease without esophagitis K21.9 ; Hypothyroidism, unspecified E03.9 ; Hyperlipidemia, unspecified hyperlipidemia type E78.5 and Left lower quadrant pain R10.32 [facility] [place] [address] [address] [place] [id number] [address] [place] [address] Jul, [facility] [address] [address] Jul, Morbid obesity with BMI of 5 0.0-59.9, adult Z68.43 [facility] [place] [id number] [place] [address] Jul, Generalized abdominal pain R 10.84 [facility] [place] [address] [address] [place] [id number] [address] [place] [address] 02 Jun, 2016 Muscle strain of right upper back, initial encounter S29.012A [facility] [place] [address] [address] May, Foreign body (FB) in soft ti ssue M79.5 [place] [address] [address] Mar, Hypothyroidism, unspecified E03.9 and Arthritis M19.90 [place] [address] [address] Feb, Coronary artery disease I25. 10 ; Morbid obesity with BMI of 50.0- 59.9, adult Z68.43 ; Metabolic syndrome E88.81 ; Gastroesophageal reflux disease without esophagitis K21.9 ; Hypothyroidism, unspecified E03.9 ; Personal history of pulmonary embolism Z86.711 and Hyperlipidemia, unspecified hyperlipidemia type E78.5 [place] [address] [address] Feb, [facility] [place] [address] [address] Jan, Acute right-sided thoracic b ack pain M54.[address] [address] Jan, Acute pain of left knee M25. 562 [place] [address] [address] 18 Dec, 2015 Dysuria R30.0 ; Metabolic sy ndrome E88.81 ; Acute pain of left knee M25.562 ; Acute cystitis with hematuria N30.01 and Acute left eye pain H57.12 [place] [address] [address] Dec, [place] [address] [address] Dec, [place] [address] [id number] [address] [place] [address] Dec, Hypothyroidism, unspecified E03.9 [place] [address] [id number] [address] [place] [address] Dec, [place] [address] [facility] [id number] [address] [place] [address] Nov, Peripheral edema R60.9 and A cute pain of left knee M25.562 [facility] [place] [address] [id number] [address] [place] [address] September, [place] [address] [facility] [id number] [address] [place] [address] September, Metabolic syndrome E88.81 an d Allergy, subsequent encounter T78.40XD [facility] [place] [address] [address] [facility] [id number] [address] [place] [address] September, Muscle strain T14.8 [place] [address] [facility] [id number] [address] [place] [address] Aug, Chest pressure R07.89 ; Clio bolic syndrome E88.81 ; Morbid obesity with BMI of 50.0-59.9, adult Z68.43 ; Esophageal reflux 530.81 and Shortness of breath R06.02 [place] [address] [facility] [id number] [address] [place] [address] Aug, [place] [address] [facility] [id number] [address] [place] [address] Aug, [place] [address] [facility] [id number] [address] [place] [address] Aug, Hypothyroidism, unspecified E03.9 [place] [address] [facility] [id number] [address] [place] [address] Aug, Routine health maintenance Z 00.00 [facility] [place] [address] [address] [facility] [id number] [address] [place] [address] Aug, [place] [address] [place] [id number] [address] [place] [address] Jul, 2016 Routine health maintenance Z 00.00 ; Family history of diabetes mellitus Z83.3 ; Family history of cancer Z80.9 and Morbid obesity with BMI of 50.0-59.9, adult Z68.43 [facility] [address] [place] [id number] [address] [place] [address] Jul, Allergic rhinitis J30.9 and Postnasal drip R09.82 [place] [address] [place] [id number] [address] [place] [address] Jul, Influenza J11.1 [facility] [place] [address] [address] [place] [id number] [address] [place] [address] 08 Jul, 2015 Dysuria R30.0 [place] [address] [place] [id number] [address] [place] [address] Apr, [place] [address] [address] Mar, Acute upper respiratory infe ction, unspecified J06.9 and Hypothyroidism E03.9 [place] [address] [place] [id number] [address] [place] [address] Mar, [place] [address] [place] [id number] [address] [place] [address] Feb, Coronary artery disease I25. 10 [place] [address] [place] [id number] [address] [place] [address] Feb, Left foot pain M79.672 [place] [address] [place] [id number] [address] [place] [address] Jan, UTI (urinary tract infection ) 599.0 [place] [address] [place] [id number] [address] [place] [address] Jan, Urinary tract infection, sit e not specified 599.0 [place] [address] [place] [id number] [address] [place] [address] Jan, Urinary tract infection, sit e not specified 599.0 [facility] [address] [facility] [id number] [address] [place] [address] Jan, [facility] [address] [facility] [id number] [address] [place] [address] Dec, Headache 784.0 [facility] [address] [facility] [id number] [address] [place] [address] Dec, Urinary tract infection, sit e not specified 599.0 [place] [address] [facility] [id number] [address] [place] [address] Dec, Urinary tract infection, sit e not specified 599.0 [place] [address] [place] [id number] [address] [place] [address] Dec, Urinary tract infection, sit e not specified 599.0 [place] [address] [place] [id number] [address] [place] [address] Nov, Unspecified sleep apnea 780. 57 ; Encounter for long-term (current) use of anticoagulants V58.61 ; Routine general medical examination at health care facility V70.0 and Arthritis of both knees 716.96 [place] [address] [address] [place] [id number] [address] [place] [address] September, Cat bite of hand 882.0 and R ectal bleeding 569.3 [facility] [address] [place] [id number] [address] [place] [address] Aug, [facility] [address] [facility] [id number] [address] [place] [address] Aug, [place] [address] [place] [id number] [address] [place] [address] Jul, [facility] [address] [place] [id number] [address] [place] [address] Jul, [facility] [place] [facility] [address] [id number] [address] [place] [id number], [place] [id number] Jul, [facility] [address] [id number] [address] [place] [id number], [place] [id number] Jul, [facility] [address] [id number] [address] [place] [address], [place] [id number] Jul, [facility] [address] [id number] [address] [place] [address], [place] [id number] Jul, [facility] [address] [id number] [address] [place] [address], [place] [id number] Jul, [facility] [address] [id number] [address] [place] [address], [place] [id number] Jul, [facility] [address] [id number] [address] [place] [address], [place] [id number] May, [facility] [address] [id number] [address] [place] [address], [place] [id number] May, [facility] [address] [id number] [address] [place] [address], [place] [id number] May, [facility] [address] [id number] [address] [place] [address], [place] [id number] May, [facility] [address] [id number] [address] [place] [address], [place] [id number] May, [facility] [address] [id number] [address] [place] [address], [place] [id number] May, [facility] [address] [id number] [address] [place] [address], [place] [id number] May, [facility] [address] [id number] [address] [place] [address], [place] [id number] Mar, [facility] [address] [id number] [address] [place] [address], [place] [id number] Mar, [facility] [address] [id number] [address] [place] [address], [place] [id number] 08 Jan, 2014 [facility] [address] [id number] [address] [place] [address], [place] [id number] 08 Jan, 2013 [facility] [address] [id number] [address] [place] [address], [place] [id number] Jan, 2013 [facility] [address] [id number] [address] [place] [address], [place] [id number] Jan, 2013 [facility] [address] [id number] [address] [place] [address], [place] [id number] Jan, 2013 [facility] [address] [id number] [address] [place] [address], [place] [id number] Jan, 2013 [facility] [address] [id number] [address] [place] [id number], [place] [id number] Dec, [facility] [address] [id number] [address] [place] [id number], [place] [id number] Dec, [facility] [address] [id number] [address] [place] [id number], [place] [id number] Dec, [facility] [address] [id number] [address] [place] [id number], [place] [id number] Dec, [facility] [address] [id number] [address] [place] [address], [place] [id number] Dec, [facility] [address] [id number] [address] [place] [id number], [place] [id number] Dec, [facility] [address] [id number] [address] [place] [id number], [place] [id number] Dec, [facility] [address] [id number] [address] [place] [id number], [place] [id number] Dec, [facility] [address] [id number] [address] [place] [address], [place] [id number] Dec, [facility] [address] [id number] [address] [place] [id number], [place] [id number] Dec, [facility] [address] [id number] [address] [place] [address], [place] [id number] Nov, [facility] [address] [id number] [address] [place] [address], [place] [id number] Nov, [facility] [address] [id number] [address] [place] [address], [place] [address] September, [facility] [address] [id number] [address] [place] [address], [place] [id number] September, [facility] [address] [id number] [address] [place] [id number], [place] [id number] September, [facility] [address] [id number] [address] [place] [address], [place] [id number] September, [facility] [address] [id number] [address] [place] [address], [place] [id number] Aug, [facility] [address] [id number] [address] [place] [id number], [place] [id number] Aug, [facility] [address] [id number] [address] [place] [id number], [place] [id number] Aug, [facility] [address] [id number] [address] [place] [address], [place] [id number] Aug, [facility] [address] [id number] [address] [place] [address], [place] [id number] Aug, [facility] [address] [id number] [address] [place] [id number], [place] [id number] Aug, [facility] [address] [id number] [address] [place] [address], [place] [id number] Aug, [facility] [address] [id number] [address] [place] [address], [place] [id number] Aug, [facility] [address] [id number] [address] [place] [address], [place] [id number] Aug, [facility] [address] [id number] [address] [place] [id number], [place] [id number] Aug, [facility] [address] [id number] [facility] [place] [id number] 07 Aug, 2013 [facility] [address] [id number] [address] [place] [id number], [place] [id number] 07 Aug, 2013 [facility] [address] [id number] [address] [place] [id number], [place] [id number] Jul, [facility] [address] [id number] [address] [place] [address], [place] [id number] Jul, [facility] [address] [id number] [address] [place] [id number], [place] [id number] Jul, [facility] [address] [id number] [address] [place] [address], [place] [id number] Jul, [facility] [address] [id number] [address] [place] [id number], [place] [id number] Jul, [facility] [address] [id number] [address] [place] [id number], [place] [id number] Jul, [facility] [address] [id number] [address] [place] [address], [place] [id number] 05 Jul, 2013 [facility] [address] [id number] [address] [place] [id number], [place] [id number] 05 Jul, 2013 [facility] [address] [id number] [address] [place] [address], [place] [id number] Jul, [facility] [address] [id number] [address] [place] [address], [place] [id number] Jul, [facility] [address] [id number] [address] [place] [address], [place] [id number] Jun, [facility] [address] [id number] [address] [place] [address], [place] [id number] Jun, [facility] [address] [id number] [address] [place] [id number], [place] [id number] 17 Jun, 2013 [facility] [address] [id number] [address] [place] [id number], [place] [id number] 17 Jun, 2013 [facility] [address] [id number] [address] [place] [address], [place] [id number] Jun, [facility] [address] [id number] [address] [place] [address], [place] [id number] Jun, [facility] [address] [id number] [address] [place] [address], [place] [id number] Jun, [facility] [address] [id number] [address] [place] [address], [place] [id number] Jun, [facility] [address] [id number] [address] [place] [address], [place] [id number] Jun, [facility] [address] [id number] [address] [place] [address], [place] [id number] Jun, [facility] [address] [id number] [address] [place] [address], [place] [id number] Jun, [facility] [address] [id number] [address] [place] [address], [place] [id number] Jun, [facility] [address] [id number] [address] [place] [address], [place] [id number] May, [facility] [address] [id number] [address] [place] [id number], [place] [id number] May, [facility] [address] [id number] [address] [place] [address], [place] [id number] May, [facility] [address] [id number] [address] [place] [address], [place] [address] May, [facility] [address] [id number] [address] [place] [address], [place] [id number] May, [facility] [address] [id number] [address] [place] [address], [place] [id number] May, [facility] [address] [id number] [address] [place] [address], [place] [id number] May, [facility] [address] [id number] [address] [place] [address], [place] [id number] May, [facility] [address] [id number] [address] [place] [id number], [place] [id number] May, [facility] [address] [id number] [address] [place] [address], [place] [address] May, [facility] [address] [id number] [address] [place] [address], [place] [id number] May, [facility] [address] [id number] [address] [place] [address], [place] [id number] May, [facility] [address] [id number] [address] [place] [address], [place] [id number] May, [facility] [address] [id number] [address] [place] [address], [place] [id number] May, [facility] [address] [id number] [address] [place] [address], [place] [id number] May, [facility] [address] [id number] [address] [place] [id number], [place] [id number] Apr, [facility] [address] [id number] [address] [place] [id number], [place] [id number] Apr, [facility] [address] [id number] [address] [place] [address], [place] [id number] Apr, [facility] [address] [id number] [address] [place] [address], [place] [id number] Apr, [facility] [address] [id number] [address] [place] [address], [place] [id number] Mar, [facility] [address] [id number] [address] [place] [id number], [place] [id number] Mar, [facility] [address] [id number] [address] [place] [address], [place] [id number] Mar, [facility] [address] [id number] [address] [place] [id number], [place] [id number] Mar, [facility] [address] [id number] [address] [place] [address], [place] [id number] Mar, [facility] [address] [id number] [address] [place] [id number], [place] [id number] Mar, [facility] [address] [id number] [address] [place] [address], [place] [id number] Mar, [facility] [address] [id number] [address] [place] [address], [place] [id number] Mar, [facility] [address] [id number] [address] [place] [address], [place] [id number] Mar, [facility] [address] [id number] [address] [place] [id number], [place] [id number] Mar, [facility] [address] [id number] [address] [place] [address], [place] [id number] Mar, [facility] [address] [id number] [address] [place] [address], [place] [id number] Mar, [facility] [address] [id number] [address] [place] [address], [place] [id number] Feb, [facility] [address] [id number] [address] [place] [id number], [place] [id number] 18 Jan, 2013 [facility] [address] [id number] [address] [place] [id number], [place] [id number] 17 Jan, 2013 [facility] [address] [id number] [address] [place] [id number] 06 Jan, 2013 [facility] [address] [id number] [address] [place] [id number], [place] [id number] 04 Jan, 2013 [facility] [address] [id number] [address] [place] [id number], [place] [id number] 03 Jan, 2013 [facility] [address] [id number] [address] [place] [id number], [place] [id number] Dec, [facility] [address] [id number] [address] [place] [id number], [place] [id number] Dec, [facility] [address] [id number] [address] [place] [address], [place] [id number] Dec, [facility] [address] [id number] [address] [place] [id number], [place] [id number] Dec, [facility] [address] [id number] [address] [place] [id number], [place] [id number] Dec, [facility] [address] [id number] [address] [place] [id number], [place] [id number] Dec, [facility] [address] [id number] [address] [place] [id number], [place] [id number] Dec, [facility] [address] [id number] [address] [place] [id number], [place] [id number] Dec, [facility] [address] [id number] [address] [place] [address], [place] [id number] Nov, [facility] [address] [id number] [address] [place] [id number], [place] [id number] Nov, [facility] [address] [id number] [address] [place] [id number], [place] [id number] Nov, [facility] [address] [id number] [address] [place] [address], [place] [id number] Nov, [facility] [address] [id number] [address] [place] [id number], [place] [id number] Nov, [facility] [address] [id number] [address] [place] [address], [place] [address] Nov, [facility] [address] [id number] [address] [place] [id number], [place] [id number] Oct, [facility] [place] [address] [id number] [place] [id number] Oct, [facility] [place] [address] [id number] [place] [id number] Oct, [facility] [place] [address] [id number] [place] [id number] Oct, [facility] [place] [address] [id number] [place] [id number] Oct, [facility] [address] [id number] [address] [place] [id number], [place] [id number] Oct, [facility] [address] [id number] [address] [place] [address], [place] [id number] Oct, [facility] [address] [id number] [address] [place] [address], [place] [id number] Oct, [facility] [address] [id number] [address] [place] [address], [place] [id number] Oct, [facility] [address] [id number] [address] [place] [id number], [place] [id number] Oct, [facility] [address] [id number] [address] [place] [address], [place] [id number] Oct, [facility] [address] [id number] [address] [place] [address], [place] [id number] September, [facility] [address] [id number] [address] [place] [address], [place] [id number] Aug, [facility] [address] [id number] [address] [place] [id number], [place] [id number] Aug, [facility] [address] [id number] [address] [place] [address], [place] [id number] Aug, [facility] [address] [id number] [address] [place] [address], [place] [id number] Aug, [facility] [address] [id number] [address] [place] [address], [place] [id number] Jul, [facility] [address] [id number] [address] [place] [address], [place] [id number] Jul, [facility] [address] [id number] [address] [place] [address], [place] [id number] Jul, [facility] [address] [id number] [address] [place] [id number], [place] [id number] 05 Jul, 2012 [facility] [address] [id number] [address] [place] [id number], [place] [id number] 04 Jul, 2012 [facility] [address] [id number] [address] [place] [address], [place] [id number] 19 Jun, 2012 [facility] [address] [id number] [address] [place] [id number], [place] [id number] 13 Jun, 2012 [facility] [address] [id number] [address] [place] [id number], [place] [id number] Jun, [facility] [address] [id number] [address] [place] [address], [place] [id number] May, [facility] [address] [id number] [address] [place] [address], [place] [id number] 24 May, 2012 [facility] [address] [id number] [address] [place] [address], [place] [id number] 14 May, 2012 [facility] [address] [id number] [address] [place] [address], [place] [id number] May, [facility] [address] [id number] [address] [place] [address], [place] [id number] May, [facility] [address] [id number] [address] [place] [address], [place] [id number] May, [facility] [address] [id number] [address] [place] [address], [place] [id number] 18 Apr, 2012 [facility] [address] [id number] [address] [place] [address], [place] [id number] 18 Apr, 2012 [facility] [address] [id number] [address] [place] [address], [place] [id number] Apr, [facility] [address] [id number] [address] [place] [id number], [place] [id number] 13 Apr, 2012 [facility] [address] [id number] [address] [place] [id number] Apr, [facility] [address] [id number] [address] [place] [id number], [place] [id number] Apr, [facility] [address] [id number] [address] [place] [address], [place] [id number] Apr, [facility] [address] [id number] [address] [place] [address], [place] [id number] Mar, [facility] [address] [id number] [address] [place] [address], [place] [id number] Mar, [facility] [address] [id number] [address] [place] [address], [place] [id number] Mar, [facility] [address] [id number] [address] [place] [address], [place] [id number] Mar, [facility] [address] [id number] [address] [place] [address], [place] [id number] 18 Jan, 2012 [facility] [address] [id number] [address] [place] [id number], [place] [id number] 10 Jan, 2012 [facility] [address] [id number] [address] [place] [id number] 06 Jan, 2012 [facility] [address] [id number] [address] [place] [id number] 06 Jan, 2012 [facility] [place] [address] [id number] [place] [id number] Dec, [facility] [address] [id number] [address] [place] [id number] Dec, [facility] [place] [address] [id number] [place] [id number] Dec, [facility] [address] [id number] [address] [place] [id number] Dec, [facility] [address] [id number] [address] [place] [id number] Dec, [facility] [address] [id number] [address] [place] [id number] Dec, [facility] [address] [facility] [id number] [address] [place] [id number] Nov, [facility] [address] [facility] [id number] [address] [place] [id number] Nov, [facility] [address] [facility] [id number] [address] [place] [id number] Nov, IMMUNIZATIONS No Known Immunizations SOCIAL HISTORY [...] Stent placed 08/19/2017 Hospitalization History S[facility]ope- [facility] 12/2017 Hospitalization History heart cath ( 06/23/18-06/25/2018) Hospitalization History heart problem, overnight stay 9
--- OUTSIDE RECORDS SUMMARY | 2019-11-17 19:15 | XMS REPORT ---
Author Author Anca Lucero Doctor Organization [facility] Address Unknown Phone Unavailable Care Team Providers Care Drapery Worker Name Role Phone Migration, Doctor Unavailable Unavailable PROBLEMS Type Condition ICD9-CM Code NTJ07-XL Code Onset Dates Condition S tatus SNOMED Code Problem Esophageal reflux K21.9 Active 24 4616041 Problem Dyslipidemia E78.5 12 Oct, 2017 Active 3709 00845 Problem Unspecified hypothyroidism E03.9 Act hernesto 45255764 Problem Generalized anxiety disorder F41.1 Apr, 200 8 Active 65128243 Problem Shortness of breath R06.02 Apr, Active 530526761 Problem Pulmonary embolus I26.99 13 Oct, 2011 Active 47481973 Problem Nonintractable migraine G43.009 08 Oct, 2015 Act hernesto 878204867 Problem Pre-diabetes R73.03 Active 0556276 02 Problem Morbid obesity with BMI of 50.0-59.9, adult Z68.43 Active 023992961 Problem Hypothyroidism E03.9 Active 66023 008 Problem Morbid obesity E66.01 Active 23406 6002 Problem Unspecified sleep apnea G47.30 Active 31968091 Problem Personal history of pulmonary embolism Z86.711 Active 080160052 Problem Osteoarthritis of right knee M17.11 13 May, 201 0 Active 978570463 Problem Renal stones N20.0 Active 5535081 7 Problem Coronary artery disease I25.10 Active 37852566 Problem Hyperlipidemia LDL goal <70 E78.5 Ac tive 91578854 Problem Migraine with aura and without status migrainosu s, not intractable G43.109 Active 7332769 ALLERGIES No Information ENCOUNTERS Encounter Location Date Diagnosis [facility] [address] [facility] [id number] [address] [place] [id number] Nov, [facility] [address] [facility] [id number] [address] [place] [address] Oct, [facility] [address] [facility] [id number] [address] [place] [address] September, [facility] [address] [id number] [address] [place] [address] September, [facility] [address] [facility] [id number] [address] [place] [address] September, [facility] [address] [facility] [id number] [address] [place] [address] Aug, [place] [address] [id number] [address] [place] [address] Aug, History of recurrent UTIs Z8 7.440 and Personal history of pulmonary embolism Z86.711 [place] [address] [id number] [address] [place] [id number] Jul, History of recurrent UTIs Z8 7.440 [place] [address] [facility] [id number] [address] [place] [address] 07 Jun, 2019 Personal history of pulmonar y embolism Z86.711 [place] [address] [id number] [address] [place] [id number] 07 Jun, 2019 Personal history of pulmonar y embolism Z86.711 [place] [address] [facility] [id number] [address] [place] [address] May, [facility] [address] [id number] [address] May, 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 and Dizziness R42 [facility] [address] [facility] [id number] [address] [place] [address] Apr, Non-recurrent acute suppurat hernesto otitis media of both ears without spontaneous rupture of tympanic membranes H66.003 [facility] [address] [facility] [id number] [address] [place] [address] Feb, Pre-diabetes R73.03 and Hype rlipidemia LDL goal <70 E78.5 [place] [address] [facility] [id number] [address] [place] [address] Feb, [facility] [address] [facility] [id number] [address] [place] [address] Feb, [facility] [address] [facility] [id number] [address] [place] [address] 30 Jan, 2019 [facility] [address] [facility] [id number] [address] [place] [id number] Jan, [place] [address] [facility] [id number] [address] [place] [address] 18 Jan, 2019 Encounter for Medicare annua l wellness exam Z00.00 ; Hyperlipidemia LDL goal <70 E78.5 ; Coronary artery disease I25.10 ; Hypothyroidism E03.9 ; Osteoarthritis of right knee M17.11 ; Morbid obesity with BMI of 50.0-59.9, adult Z68.43 and Esophageal reflux K21.9 [place] [address] [place] [id number] [address] [place] [address] Jan, Dysuria R30.0 and Hematuria, unspecified type R31.9 [place] [address] [facility] [id number] [address] [place] [address] Jan, Hematuria, unspecified type R31.9 [place] [address] [facility] [id number] [address] [place] [phone] Dec, Hematuria, unspecified type R31.9 [place] [address] [facility] [id number] [address] [place] [address] Nov, Hematuria, unspecified type R31.[id number] [place] [address] Nov, Other microscopic hematuria R31.29 [facility] [address] [facility] [id number] [address] [place] [address] Nov, Vaginal gena B37.3 ; Othe r microscopic hematuria R31.29 and Morbid obesity E66.01 [place] [address] [facility] [id number] [address] [place] [address] Nov, [facility] [address] [place] [id number] [place] [address] Nov, [facility] [address] [place] [id number] [place] [address] Nov, UTI symptoms R39.9 and Morbi d obesity E66.01 [facility] [address] [address] Nov, [facility] [address] [address] September, [facility] [address] [address] September, [facility] [address] [address] Aug, Right foot pain M79.671 and Morbid obesity E66.01 [facility] [address] [address] Jul, Right foot pain M79.671 and Morbid obesity E66.01 [facility] [address] [address] Jul, Injury of right foot, initia l encounter S99.921A and Morbid obesity E66.01 [facility] [address] [address] Jul, Recurrent syncope R55 and Mo rbid obesity E66.01 [facility] [address] [place] [id number] [address] [place] [address] Jul, [facility] [address] [address] Jun, Hematuria, unspecified type R31.9 and BMI 50.0-59.9, adult Z68.43 [facility] [address] [address] Jun, [facility] [place] [address] [id number] [place] [address] Jun, 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 [facility] [address] [place] [id number] [address] [place] [address] May, Ankle pain, right M25.571 an d BMI 50.0-59.9, adult Z68.43 [facility] [address] [facility] [id number] [address] [place] [address] May, [facility] [address] [place] [address] May, [facility] [address] [place] [id number] [address] [place] [address] Apr, [place] [address] [place] [id number] [address] [place] [address] Apr, [facility] [address] [place] [id number] [address] [place] [address] Apr, [facility] [address] [place] [address] Apr, BMI 50.0-59.9, adult Z68.43 and Weakness R53.1 [facility] [address] [place] [id number] [address] [place] [address] Apr, [facility] [address] [place] [id number] [address] [place] [address] Apr, Dysuria R30.0 ; Hematuria R3 1.9 ; Renal lithiasis N20.0 and BMI 50.0-59.9, adult Z68.43 [facility] [address] [place] [id number] [address] [place] [address] Apr, [facility] [address] [place] [id number] [address] [place] [address] Apr, [facility] [address] [address] 05 Apr, 2018 Hypothyroidism E03.[address] [address] 04 Apr, 2018 Burning with urination R30.0 ; Type 2 diabetes mellitus with diabetic neuropathic arthropathy, without long-term current use of insulin E11.610 ; Acute bilateral low back pain without sciatica M54.5 and BMI 50.0- 59.9, adult Z68.43 [place] [address] [address] 02 Mar, 2018 Hypothyroidism E03.[address] [address] Feb, [facility] [address] [address] 15 Jan, [address] [address] 07 Jan, 2018 Acute non-recurrent maxillar y sinusitis J01.00 and BMI 50.0-59.9, adult Z68.43 [facility] [address] [address] 04 Jan, 2018 Congestion of upper respirat ory tract J98.8 and BMI 50.0-59.9, adult Z68.[address] [address] Dec, Type 2 diabetes mellitus wit h diabetic neuropathic arthropathy, without long-term current use of insulin E11.610 ; Morbid obesity with BMI of 50.0-59.9, adult Z68.43 ; Hypothyroidism E03.9 ; Coronary artery disease I25.10 ; Hyperlipidemia LDL goal <70 E78.5 ; Right lower quadrant abdominal pain R10.31 and Acute cystitis with hematuria N30.01 [facility] W[facility] IN [address] [address] Dec, Migraine with aura and witho ut status migrainosus, not intractable G43.109 ; Dehydration symptoms R63.8 and BMI 50.0-59.9, adult Z68.43 [place] [address] [address] Oct, [place] [address] [address] Oct, [place] [address] [address] Oct, [place] [address] [address] September, [address] [address] September, Type 2 diabetes mellitus wit h diabetic neuropathic arthropathy, without long-term current use of insulin E11.610 ; Hyperlipidemia, unspecified hyperlipidemia type E78.5 ; Personal history of pulmonary embolism Z86.711 ; Coronary artery disease I25.10 and Hypothyroidism E03.9 [place] [address] [address] September, [address] [address] Aug, Type 2 diabetes mellitus wit h [...] and with status migrainosus G43.011 [place] [address] [address] Aug, [place] [address] [address] Aug, [place] [address] [place] [address] Jul, Renal stones N20.0 [facility] [address] [address] Jun, Back pain M54.9 ; Kidney sto radha N20.0 and BMI 50.0-59.9, adult Z68.43 [place] [address] [address] Jun, [place] [address] [address] Apr, [place] [address] [address] Apr, [place] [address] [address] Apr, Right foot pain M79.671 ; Ac ronnie gout involving toe of right foot, 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 and Arthritis M19.90 [facility] [address] [address] 06 Apr, 2017 Gastroesophageal reflux dise ase without esophagitis K21.9 [place] [address] [address] 16 Mar, 2017 Hypothyroidism, unspecified E03.9 [place] [address] [address] Feb, [place] [address] [address] 25 Jan, 2017 Cervicalgia of occipito-atla nto-axial region M54.2 and Persistent headaches R51 [place] [address] [address] 20 Jan, 2017 [place] [address] [address] 12 Jan, 2017 Intractable migraine without aura and with status migrainosus G43.011 ; Cervical spine pain M54.2 ; Hyperlipidemia, unspecified hyperlipidemia type E78.5 ; Hypothyroidism E03.9 and Metabolic syndrome E88.81 [place] [address] [address] Jan, Hypothyroidism, unspecified E03.9 [place] [address] [address] Dec, Hypothyroidism, unspecified E03.9 [place] [address] [address] Dec, Hypothyroidism E03.9 [place] [address] [address] Nov, Laceration of left great toe w/o foreign body w/o damage to nail, initial encounter S91.112A [facility] [address] [address] Oct, Pain in left knee M25.562 an d Arthritis M19.90 [place] [address] [address] Oct, Hypothyroidism, unspecified E03.9 and Hyperlipidemia, unspecified hyperlipidemia type E78.5 [place] [address] [address] Oct, Gastroesophageal reflux dise ase without esophagitis K21.9 [place] [address] [address] 14 Oct, 2016 Metabolic syndrome E88.81 ; Personal history of pulmonary embolism Z86.711 ; Other specified hypothyroidism E03.8 and Hyperlipidemia, unspecified hyperlipidemia type E78.5 [place] [address] [address] 13 Oct, 2016 Personal history of pulmonar y embolism Z86.711 ; Dysuria R30.0 ; Metabolic syndrome E88.81 ; Other specified hypothyroidism E03.8 ; Hyperlipidemia, unspecified hyperlipidemia type E78.5 and Morbid obesity with BMI of 50.0-59.9, adult Z68.43 [place] [address] [address] September, [facility] [place] [address] [address] September, Wrist pain, left M25.532 and Acute pain of left knee M25.[address] [address] Jul, Dysuria R30.[address] [address] Jul, Dysuria R30.0 [place] [address] [address] Jul, Left lower quadrant pain R10 .[address] [address] Jul, [place] [address] [address] Jul, Coronary artery disease I25. 10 ; Family history of diabetes mellitus Z83.3 ; Morbid obesity with BMI of 50.0-59.9, adult Z68.43 ; Metabolic syndrome E88.81 ; Personal history of pulmonary embolism Z86.711 ; Gastroesophageal reflux disease without esophagitis K21.9 ; Hypothyroidism, unspecified E03.9 ; Hyperlipidemia, unspecified hyperlipidemia type E78.5 and Left lower quadrant pain R10.32 [facility] [place] [address] [place] [id number] [address] [place] [address] Jul, [facility] [address] [address] Jul, Morbid obesity with BMI of 5 0.0-59.9, adult Z68.43 [facility] [place] [id number] [place] [address] Jul, Generalized abdominal pain R 10.84 [facility] [place] [address] [place] [id number] [address] [place] [address] 02 Jun, 2016 Muscle strain of right upper back, initial encounter S29.012A [facility] [place] [address] [address] May, Foreign body (FB) in soft ti ssue M79.5 [place] [address] [address] Mar, Hypothyroidism, unspecified E03.9 and Arthritis M19.90 [place] [address] [address] Feb, Coronary artery disease I25. 10 ; Morbid obesity with BMI of 50.0- 59.9, adult Z68.43 ; Metabolic syndrome E88.81 ; Gastroesophageal reflux disease without esophagitis K21.9 ; Hypothyroidism, unspecified E03.9 ; Personal history of pulmonary embolism Z86.711 and Hyperlipidemia, unspecified hyperlipidemia type E78.5 [place] [address] [address] Feb, [facility] [place] [address] [address] Jan, Acute right-sided thoracic b ack pain M54.[address] [address] Jan, Acute pain of left knee M25. 562 [place] [address] [address] 18 Dec, 2015 Dysuria R30.0 ; Metabolic sy ndrome E88.81 ; Acute pain of left knee M25.562 ; Acute cystitis with hematuria N30.01 and Acute left eye pain H57.12 [place] [address] [address] Dec, [place] [address] [address] Dec, [place] [address] [id number] [address] [place] [address] Dec, Hypothyroidism, unspecified E03.9 [place] [address] [id number] [address] [place] [address] Dec, [place] [address] [facility] [id number] [address] [place] [address] Nov, Peripheral edema R60.9 and A cute pain of left knee M25.562 [facility] [place] [address] [id number] [address] [place] [address] September, [place] [address] [facility] [id number] [address] [place] [address] September, Metabolic syndrome E88.81 an d Allergy, subsequent encounter T78.40XD [facility] [place] [address] [facility] [id number] [address] [place] [address] September, Muscle strain T14.8 [place] [address] [facility] [id number] [address] [place] [address] Aug, Chest pressure R07.89 ; [place] bolic syndrome E88.81 ; Morbid obesity with BMI of 50.0-59.9, adult Z68.43 ; Esophageal reflux 530.81 and Shortness of breath R06.02 [place] [address] [facility] [id number] [address] [place] [address] Aug, [place] [address] [facility] [id number] [address] [place] [address] Aug, [place] [address] [facility] [id number] [address] [place] [address] Aug, Hypothyroidism, unspecified E03.9 [place] [address] [facility] [id number] [address] [place] [address] Aug, Routine health maintenance Z 00.00 [facility] [place] [address] [facility] [id number] [address] [place] [address] Aug, [place] [address] [place] [id number] [address] [place] [address] Jul, 2016 Routine health maintenance Z 00.00 ; Family history of diabetes mellitus Z83.3 ; Family history of cancer Z80.9 and Morbid obesity with BMI of 50.0-59.9, adult Z68.43 [facility] [address] [place] [id number] [address] [place] [address] Jul, Allergic rhinitis J30.9 and Postnasal drip R09.82 [place] [address] [place] [id number] [address] [place] [address] Jul, Influenza J11.1 [facility] [place] [address] [place] [id number] [address] [place] [address] 08 Jul, 2015 Dysuria R30.0 [place] [address] [place] [id number] [address] [place] [address] Apr, [place] [address] [address] Mar, Acute upper respiratory infe ction, unspecified J06.9 and Hypothyroidism E03.9 [place] [address] [place] [id number] [address] [place] [address] Mar, [place] [address] [place] [id number] [address] [place] [address] Feb, Coronary artery disease I25. 10 [place] [address] [place] [id number] [address] [place] [address] Feb, Left foot pain M79.672 [place] [address] [place] [id number] [address] [place] [address] Jan, UTI (urinary tract infection ) 599.0 [place] [address] [place] [id number] [address] [place] [address] Jan, Urinary tract infection, sit e not specified 599.0 [place] [address] [place] [id number] [address] [place] [address] Jan, Urinary tract infection, sit e not specified 599.0 [facility] [address] [facility] [id number] [address] [place] [address] Jan, [facility] [address] [facility] [id number] [address] [place] [address] Dec, Headache 784.0 [facility] [address] [facility] [id number] [address] [place] [address] Dec, Urinary tract infection, sit e not specified 599.0 [place] [address] [facility] [id number] [address] [place] [address] Dec, Urinary tract infection, sit e not specified 599.0 [place] [address] [place] [id number] [address] [place] [address] Dec, Urinary tract infection, sit e not specified 599.0 [place] [address] [place] [id number] [address] [place] [address] Nov, Unspecified sleep apnea 780. 57 ; Encounter for long-term (current) use of anticoagulants V58.61 ; Routine general medical examination at health care facility V70.0 and Arthritis of both knees 716.96 [place] [address] [place] [id number] [address] [place] [address] September, Cat bite of hand 882.0 and R ectal bleeding 569.3 [facility] [address] [place] [id number] [address] [place] [address] Aug, [facility] [address] [facility] [id number] [address] [place] [id number] Aug, [place] [address] [place] [id number] [address] [place] [address] Jul, [facility] [address] [place] [id number] [address] [place] [address] Jul, [facility] [place] [facility] [address] [id number] [address] [place] [address], [place] [address] Jul, [facility] [address] [id number] [address] [place] [address], [place] [address] Jul, [facility] [address] [id number] [address] [place] [address], [place] [address] Jul, [facility] [address] [id number] [address] [place] [address], [place] [address] Jul, [facility] [address] [id number] [address] [place] [address], [place] [address] Jul, [facility] [address] [id number] [address] [place] [address], [place] [address] Jul, [facility] [address] [id number] [address] [place] [address], [place] [address] May, [facility] [address] [id number] [address] [place] [address], [place] [id number] May, [facility] [address] [id number] [address] [place] [address], [place] [address] May, [facility] [address] [id number] [address] [place] [address], [place] [address] May, [facility] [address] [id number] [address] [place] [address], [place] [address] May, [facility] [address] [id number] [address] [place] [address], [place] [id number] May, [facility] [address] [id number] [address] [place] [address], [place] [address] May, [facility] [address] [id number] [address] [place] [address], [place] [id number] Mar, [facility] [address] [id number] [address] [place] [address], [place] [address] Mar, [facility] [address] [id number] [address] [place] [address], [place] [id number] 08 Jan, 2014 [facility] [address] [id number] [address] [place] [address], [place] [id number] 08 Jan, 2013 [facility] [address] [id number] [address] [place] [address], [place] [address] Jan, 2013 [facility] [address] [id number] [address] [place] [address], [place] [address] Jan, 2013 [facility] [address] [id number] [address] [place] [address], [place] [id number] Jan, 2013 [facility] [address] [id number] [address] [place] [address], [place] [address] Jan, 2013 [facility] [address] [id number] [address] [place] [address], [place] [address] Dec, [facility] [address] [id number] [address] [place] [address], [place] [address] Dec, [facility] [address] [id number] [address] [place] [address], [place] [address] Dec, [facility] [address] [id number] [address] [place] [address], [place] [address] Dec, [facility] [address] [id number] [address] [place] [address], [place] [address] Dec, [facility] [address] [id number] [address] [place] [address], [place] [address] Dec, [facility] [address] [id number] [address] [place] [address], [place] [address] Dec, [facility] [address] [id number] [address] [place] [address], [place] [address] Dec, [facility] [address] [id number] [address] [place] [address], [place] [address] Dec, [facility] [address] [id number] [address] [place] [address], [place] [address] Dec, [facility] [address] [id number] [address] [place] [address], [place] [address] Nov, [facility] [address] [id number] [address] [place] [address], [place] [address] Nov, [facility] [address] [id number] [address] [place] [address], [place] [address] September, [facility] [address] [id number] [address] [place] [address], [place] [address] September, [facility] [address] [id number] [address] [place] [address], [place] [address] September, [facility] [address] [id number] [address] [place] [address], [place] [address] September, [facility] [address] [id number] [address] [place] [address], [place] [address] Aug, [facility] [address] [id number] [address] [place] [address], [place] [address] Aug, [facility] [address] [id number] [address] [place] [address], [place] [address] Aug, [facility] [address] [id number] [address] [place] [address], [place] [address] Aug, [facility] [address] [id number] [address] [place] [address], [place] [address] Aug, [facility] [address] [id number] [address] [place] [address], [place] [address] Aug, [facility] [address] [id number] [address] [place] [address], [place] [address] Aug, [facility] [address] [id number] [address] [place] [address], [place] [address] Aug, [facility] [address] [id number] [address] [place] [address], [place] [address] Aug, [facility] [address] [id number] [address] [place] [address], [place] [address] Aug, [facility] [address] [id number] [facility] [place] [address] 07 Aug, 2013 [facility] [address] [id number] [address] [place] [address], [place] [address] 07 Aug, 2013 [facility] [address] [id number] [address] [place] [address], [place] [address] Jul, [facility] [address] [id number] [address] [place] [address], [place] [address] Jul, [facility] [address] [id number] [address] [place] [address], [place] [address] Jul, [facility] [address] [id number] [address] [place] [address], [place] [address] Jul, [facility] [address] [id number] [address] [place] [address], [place] [address] Jul, [facility] [address] [id number] [address] [place] [address], [place] [address] Jul, [facility] [address] [id number] [address] [place] [address], [place] [address] 05 Jul, 2013 [facility] [address] [id number] [address] [place] [address], [place] [address] 05 Jul, 2013 [facility] [address] [id number] [address] [place] [address], [place] [address] Jul, [facility] [address] [id number] [address] [place] [address], [place] [address] Jul, [facility] [address] [id number] [address] [place] [address], [place] [address] Jun, [facility] [address] [id number] [address] [place] [address], [place] [address] Jun, [facility] [address] [id number] [address] [place] [address], [place] [address] 17 Jun, 2013 [facility] [address] [id number] [address] [place] [address], [place] [address] 17 Jun, 2013 [facility] [address] [id number] [address] [place] [address], [place] [address] Jun, [facility] [address] [id number] [address] [place] [address], [place] [address] Jun, [facility] [address] [id number] [address] [place] [address], [place] [address] Jun, [facility] [address] [id number] [address] [place] [address], [place] [address] Jun, [facility] [address] [id number] [address] [place] [address], [place] [address] Jun, [facility] [address] [id number] [address] [place] [address], [place] [address] Jun, [facility] [address] [id number] [address] [place] [address], [place] [address] Jun, [facility] [address] [id number] [address] [place] [address], [place] [address] Jun, [facility] [address] [id number] [address] [place] [address], [place] [address] May, [facility] [address] [id number] [address] [place] [address], [place] [address] May, [facility] [address] [id number] [address] [place] [address], [place] [address] May, [facility] [address] [id number] [address] [place] [address], [place] [address] May, [facility] [address] [id number] [address] [place] [address], [place] [address] May, [facility] [address] [id number] [address] [place] [address], [place] [address] May, [facility] [address] [id number] [address] [place] [address], [place] [address] May, [facility] [address] [id number] [address] [place] [address], [place] [address] May, [facility] [address] [id number] [address] [place] [address], [place] [address] May, [facility] [address] [id number] [address] [place] [address], [place] [address] May, [facility] [address] [id number] [address] [place] [address], [place] [address] May, [facility] [address] [id number] [address] [place] [address], [place] [address] May, [facility] [address] [id number] [address] [place] [address], [place] [address] May, [facility] [address] [id number] [address] [place] [address], [place] [address] May, [facility] [address] [id number] [address] [place] [address], [place] [address] May, [facility] [address] [id number] [address] [place] [address], [place] [address] Apr, [facility] [address] [id number] [address] [place] [address], [place] [address] Apr, [facility] [address] [id number] [address] [place] [address], [place] [address] Apr, [facility] [address] [id number] [address] [place] [address], [place] [address] Apr, [facility] [address] [id number] [address] [place] [address], [place] [address] Mar, [facility] [address] [id number] [address] [place] [address], [place] [address] Mar, [facility] [address] [id number] [address] [place] [address], [place] [address] Mar, [facility] [address] [id number] [address] [place] [address], [place] [address] Mar, [facility] [address] [id number] [address] [place] [address], [place] [address] Mar, [facility] [address] [id number] [address] [place] [address], [place] [address] Mar, [facility] [address] [id number] [address] [place] [address], [place] [address] Mar, [facility] [address] [id number] [address] [place] [address], [place] [address] Mar, [facility] [address] [id number] [address] [place] [address], [place] [address] Mar, [facility] [address] [id number] [address] [place] [address], [place] [address] Mar, [facility] [address] [id number] [address] [place] [address], [place] [address] Mar, [facility] [address] [id number] [address] [place] [address], [place] [address] Mar, [facility] [address] [id number] [address] [place] [address], [place] [address] Feb, [facility] [address] [id number] [address] [place] [address], [place] [address] 18 Jan, 2013 [facility] [address] [id number] [address] [place] [address], [place] [address] 17 Jan, 2013 [facility] [address] [id number] [address] [place] [address] 06 Jan, 2013 [facility] [address] [id number] [address] [place] [address], [place] [address] 04 Jan, 2013 [facility] [address] [id number] [address] [place] [address], [place] [address] 03 Jan, 2013 [facility] [address] [id number] [address] [place] [address], [place] [address] Dec, [facility] [address] [id number] [address] [place] [address], [place] [address] Dec, [facility] [address] [id number] [address] [place] [address], [place] [address] Dec, [facility] [address] [id number] [address] [place] [address], [place] [address] Dec, [facility] [address] [id number] [address] [place] [address], [place] [address] Dec, [facility] [address] [id number] [address] [place] [address], [place] [address] Dec, [facility] [address] [id number] [address] [place] [address], [place] [address] Dec, [facility] [address] [id number] [address] [place] [address], [place] [address] Dec, [facility] [address] [id number] [address] [place] [address], [place] [address] Nov, [facility] [address] [id number] [address] [place] [address], [place] [address] Nov, [facility] [address] [id number] [address] [place] [address], [place] [address] Nov, [facility] [address] [id number] [address] [place] [address], [place] [address] Nov, [facility] [address] [id number] [address] [place] [address], [place] [address] Nov, [facility] [address] [id number] [address] [place] [address], [place] [address] Nov, [facility] [address] [id number] [address] [place] [address], [place] [address] Oct, [facility] [place] [address] [id number] [place] [id number] Oct, [facility] [place] [address] [id number] [place] [id number] Oct, [facility] [place] [address] [id number] [place] [id number] Oct, [facility] [place] [address] [id number] [place] [id number] Oct, [facility] [address] [id number] [address] [place] [address], [place] [address] Oct, [facility] [address] [id number] [address] [place] [address], [place] [address] Oct, [facility] [address] [id number] [address] [place] [address], [place] [address] Oct, [facility] [address] [id number] [address] [place] [address], [place] [address] Oct, [facility] [address] [id number] [address] [place] [address], [place] [address] Oct, [facility] [address] [id number] [address] [place] [address], [place] [address] Oct, [facility] [address] [id number] [address] [place] [address], [place] [address] September, [facility] [address] [id number] [address] [place] [address], [place] [address] Aug, [facility] [address] [id number] [address] [place] [address], [place] [address] Aug, [facility] [address] [id number] [address] [place] [address], [place] [address] Aug, [facility] [address] [id number] [address] [place] [address], [place] [address] Aug, [facility] [address] [id number] [address] [place] [address], [place] [address] Jul, [facility] [address] [id number] [address] [place] [address], [place] [address] Jul, [facility] [address] [id number] [address] [place] [address], [place] [address] Jul, [facility] [address] [id number] [address] [place] [address], [place] [address] 05 Jul, 2012 [facility] [address] [id number] [address] [place] [address], [place] [address] 04 Jul, 2012 [facility] [address] [id number] [address] [place] [address], [place] [address] 19 Jun, 2012 [facility] [address] [id number] [address] [place] [address], [place] [address] 13 Jun, 2012 [facility] [address] [id number] [address] [place] [address], [place] [address] Jun, [facility] [address] [id number] [address] [place] [address], [place] [address] May, [facility] [address] [id number] [address] [place] [address], [place] [address] 24 May, 2012 [facility] [address] [id number] [address] [place] [address], [place] [address] 14 May, 2012 [facility] [address] [id number] [address] [place] [address], [place] [address] May, [facility] [address] [id number] [address] [place] [address], [place] [address] May, [facility] [address] [id number] [address] [place] [address], [place] [address] May, [facility] [address] [id number] [address] [place] [address], [place] [address] 18 Apr, 2012 [facility] [address] [id number] [address] [place] [address], [place] [address] 18 Apr, 2012 [facility] [address] [id number] [address] [place] [address], [place] [address] Apr, [facility] [address] [id number] [address] [place] [address], [place] [address] 13 Apr, 2012 [facility] [address] [id number] [address] [place] [address] Apr, [facility] [address] [id number] [address] [place] [address], [place] [address] Apr, [facility] [address] [id number] [address] [place] [address], [place] [address] Apr, [facility] [address] [id number] [address] [place] [address], [place] [address] Mar, [facility] [address] [id number] [address] [place] [address], [place] [address] Mar, [facility] [address] [id number] [address] [place] [address], [place] [address] Mar, [facility] [address] [id number] [address] [place] [address], [place] [address] Mar, [facility] [address] [id number] [address] [place] [address], [place] [address] 18 Jan, 2012 [facility] [address] [id number] [address] [place] [address], [place] [address] 10 Jan, 2012 [facility] [address] [id number] [address] [place] [id number] 06 Jan, 2012 [facility] [address] [id number] [address] [place] [address] 06 Jan, 2012 [facility] [place] [address] [id number] [place] [id number] Dec, [facility] [address] [id number] [address] [place] [id number] Dec, [facility] [place] [address] [id number] [place] [id number] Dec, [facility] [address] [id number] [address] [place] [id number] Dec, [facility] [address] [id number] [address] [place] [id number] Dec, [facility] [address] [id number] [address] [place] [address] Dec, [facility] [address] [facility] [id number] [address] [place] [phone] Nov, [facility] [address] [facility] [id number] [address] [place] [id number] Nov, [facility] [address] [facility] [id number] [address] [place] [id number] Nov, IMMUNIZATIONS No Known Immunizations SOCIAL HISTORY [...] Stent placed 08/19/2017 Hospitalization History Syncope- [facility] 12/2017 Hospitalization History heart cath ( 06/23/18-06/25/2018) Hospitalization History heart problem, overnight stay 9
--- OUTSIDE RECORDS SUMMARY | 2019-11-17 19:23 | XMS REPORT | Continuity of Care Document ---
Demographics Preferred Language Unknown Marital Status Unknown Pentecostalism Affiliation Unknown Race Unknown Ethnic Group Unknown [...] N/A 08/16/2013 Yes bee venom (honey bee) [id number] Drug Allergy Unknown N/A 02/02/2014 Yes methylprednisolone [id number] Drug Allergy Mild N/A 11/05/2018 Yes atorvastatin [id number] Drug Allergy Unknown N/A 11/05/2018 Yes isosorbide [id number] Drug Allerg y Unknown N/A 11/05/2018 Yes ketorolac [id number] Drug Allergy Unknown ITCHING 11/05/2018 Yes Penicillins [id number] Drug Aller gy Unknown N/A 11/05/2018 Yes promethazine [id number] Drug Allergy Unknown hallucinations 11/05/2018 Yes venom-honey bee [id number] D rug Allergy Unknown N/A 11/05/2018 Medications [...] 729.5 PAIN IN LIMB 11/27/2011 Ot 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 12/05/2011 ARIZA DO, JOSE ALBERTO K 786.05 Shortness Of Breath 12/05/2011 ARIZA DO, JOSE ALBERTO K 789.00 Abdominal Pain Unspecified Site 12/05/2011 ARIZA DO, JOSE ALBERTO K V12.55 Personal History Of Pulmonary Embolism 12/05/2011 ARIZA DO, JOSE ALBERTO K V70.0 ROUTINE GENERAL MEDICAL EXAMINATION AT A [facility] 12/05/2011 ARIZA DO, JOSE ALBERTO K 786.05 Shortness Of Breath 12/05/2011 ARIZA DO, JOSE ALBERTO K 789.00 Abdominal Pain Unspecified Site 12/05/2011 ARIZA DO, JOSE ALBERTO K V12.55 Personal History Of Pulmonary Embolism 12/05/2011 ARIZA DO, JOSE ALBERTO K V70.0 ROUTINE GENERAL MEDICAL EXAMINATION AT A [facility] 12/05/2011 ARIZA DO, JOSE ALBERTO K 786.05 Shortness Of Breath 12/05/2011 ARIZA DO, JOSE ALBERTO K 789.00 Abdominal Pain Unspecified Site 12/05/2011 ARIZA DO, JOSE ALBERTO K V12.55 Personal History Of Pulmonary Embolism 12/05/2011 ARIZA DO, JOSE ALBERTO K V70.0 ROUTINE GENERAL MEDICAL EXAMINATION AT A [facility] 12/05/2011 VIVIENNE QM NURSE DONI S 786.05 Shortness Of Breath 12/05/2011 VIVIENNE QM NURSE, DONI S 789.00 Abdominal Pain Unspecified Site 12/05/2011 VIVIENNE QM NURSE, DONI S V12.55 Personal History Of Pulmonary Embolism 12/05/2011 VIVIENNE QM NURSE, DONI S V70.0 ROUTINE GENERAL MEDICAL EXAMINATION AT A [facility] 12/05/2011 ARIZA DO, JOSE ALBERTO K 786.05 Shortness Of Breath 12/05/2011 ARIZA DO, JOSE ALBERTO K 789.00 Abdominal Pain Unspecified Site 12/05/2011 ARIZA DO, JOSE ALBERTO K V12.55 Personal History Of Pulmonary Embolism 12/05/2011 ARIZA DO, JOSE ALBERTO K V70.0 ROUTINE GENERAL MEDICAL EXAMINATION AT A [facility] 12/05/2011 ARIZA DO, JOSE ALBERTO K 786.05 Shortness Of Breath 12/05/2011 ARIZA DO, JOSE ALBERTO K 789.00 Abdominal Pain Unspecified Site 12/05/2011 ARIZA DO, JOSE ALBERTO K V12.55 Personal History Of Pulmonary Embolism 12/05/2011 ARIZA DO, JOSE ALBERTO K V70.0 ROUTINE GENERAL MEDICAL EXAMINATION AT A [facility] 12/05/2011 ARIZA DO, JOSE ALBERTO K 786.05 Shortness Of Breath 12/05/2011 ARIZA DO, JOSE ALBERTO K 789.00 Abdominal Pain Unspecified Site 12/05/2011 ARIZA DO, JOSE ALBERTO K V12.55 Personal History Of Pulmonary Embolism 12/05/2011 ARIZA DO, JOSE ALBERTO K V70.0 ROUTINE GENERAL MEDICAL EXAMINATION AT A [facility] 12/05/2011 VALENCIA MAXN, CHERYL R 786.05 Shortness Of Breath 12/05/2011 VALENCIA MAXN, CHERYL R 789.00 Abdominal Pain Unspecified Site 12/05/2011 VALENCIA MAXNJULICHERYL R V12.55 Personal History Of Pulmonary Embolism 12/05/2011 VALENCIA MAXN, CHERYL R V70.0 ROUTINE GENERAL MEDICAL EXAMINATION AT [facility] 12/05/2011 CHARLES DOYLE PA-C 786.05 Shortness Of Breath 12/05/2011 CHARLES DOYLE PA-C 789.00 Abdominal Pain Unspecified Site 12/05/2011 CHARLES DOYLE PA-C M V12.55 Personal History Of Pulmonary Embolism 12/05/2011 CHARLES DOYLE PA-C V70.0 ROUTINE GENERAL MEDICAL EXAMINATION AT [facility] 12/05/2011 ARIZA DO, JOSE ALBERTO K 786.05 Shortness Of Breath 12/05/2011 ARIZA DO, JOSE ALBERTO K 789.00 Abdominal Pain Unspecified Site 12/05/2011 ARIZA DO JOSE ALBERTO K V12.55 Personal History Of Pulmonary Embolism 12/05/2011 ARIZA DO, JOSE ALBERTO K V70.0 ROUTINE GENERAL MEDICAL EXAMINATION AT A HEALTH CARE FACILITY 12/05/2011 VALENCIA QM NURSE, CHERYL R 786.05 Shortness Of Breath 12/05/2011 VALENCIA QM NURSE, CHERYL R 789.00 Abdominal Pain Unspecified Site 12/05/2011 VALENCIA QM NURSE, CHERYL R V12.55 Personal History Of Pulmonary Embolism 12/05/2011 VALENCIA QM NURSE, CHERYL R V70.0 ROUTINE GENERAL MEDICAL EXAMINATION AT A [facility] 12/05/2011 ARIZA DO, JOSE ALBERTO K 786.05 Shortness Of Breath 12/05/2011 ARIZA DO, JOSE ALBERTO K 789.00 Abdominal Pain Unspecified Site 12/05/2011 ARIZA DO, JOSE ALBERTO K V12.55 Personal History Of Pulmonary Embolism 12/05/2011 ARIZA DO, JOSE ALBERTO K V70.0 ROUTINE GENERAL MEDICAL EXAMINATION AT A [facility] 12/05/2011 ARIZA DO, JOSE [...] RAD IAL STYLOID TENOSYNOVITIS 01/15/2012 JOSE ALBERTO RAIZA DO 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 01/15/2012 JOSE [...] 03/18/2012 Ot 414.01 COR ONARY ATHEROSCLEROSIS OF [place] CORON 03/18/2012 Ot 433.10 CAR OTID ARTERY [...] K 414.00 CAD 03/19/2012 ARIZA DO, JOSE ALBETRO [...] K 244.9 UNSPECIFIED ACQUIRED HYPOTHYROIDISM 04/27/2012 VALENCIA QM NURSE, CHERYL R 244.9 UNSPECIFIED ACQUIRED HYPOTHYROIDISM 04/27/2012 [...] ALBERTO K 466.0 BRONCHITIS, ACUTE 05/14/2012 VALENCIA QM NURSE, CHERYL R 466.0 BRONCHITIS, ACUTE 05/14/2012 ARIZA [...] PAIN IN LIMB 06/10/2012 ARIZA DO, JOSE ALEBRTO K 729.5 PAIN IN LIMB 06/10/2012 JULI [...] CHRISTOPHER MOYAA K 599.70 HEMATURIA 07/13/2012 ARIZA CRHISTOPHER MOYAA K 780.4 dizziness 07/13/2012 ARIZA CHRISTOPHER [...] 788.1 PAIN DURING URINATION (DYSURIA) 07/13/2012 VIVIENNE QM NURSE, DONI S 599.70 HEMATURIA 07/13/2012 VIVIENNE QM NURSE, DONI S 780.4 DIZZINESS 07/13/2012 VIVIENNE QM NURSE, DONI S 788.1 PAIN DURING URINATION (DYSURIA) [...] 788.1 PAIN DURING URINATION (DYSURIA) 07/13/2012 VALENCIA QM NURSE, CHERYL R 599.70 HEMATURIA 07/13/2012 VALENCIA QM NURSE, CHERYL R 780.4 DIZZINESS 07/13/2012 VALENCIA QM NURSE, CHERYL R 788.1 PAIN DURING URINATION (DYSURIA) 07/13/2012 VIVEK DUMONT, CHARLES M 599.70 HEMATURIA 07/13/2012 CHARLES DOYLE PA-C M 780.4 DIZZINESS 07/13/2012 CHARLES DOYLE PA-C M 788.1 PAIN DURING URINATION (DYSURIA) 07/13/2012 ARIZA DO, JOSE ALBERTO K 599.70 HEMATURIA 07/13/2012 ARIZA DO, JOSE ALBERTO K 780.4 DIZZINESS 07/13/2012 ARIZA DO, JOSE ALBERTO K 788.1 PAIN DURING URINATION (DYSURIA) 07/13/2012 VALENCIA QM NURSE, CHERYL R 599.70 HEMATURIA 07/13/2012 VALENCIA QM NURSE, CHERYL R 780.4 DIZZINESS 07/13/2012 VALENCIA QM NURSE, CHERYL R 788.1 PAIN DURING URINATION (DYSURIA) [...] UNSPECIFIED SITE OF ANKLE SPRAIN 08/31/2012 CHRISTOPHER RAIZA DOA Astrid 719.47 PAIN IN JOINT INVOLVING [...] MD Ot 414. 01 CORONARY ATHEROSCLEROSIS OF [place] CORON 10/19/2012 REAGAN MCNEILL MD Ot 416. [...] of Venous Thrombosis and Embolism 10/28/2012 VALENCIA QM NURSE, CHERYL R 531.30 GASTRIC ULCER ACUTE 10/28/2012 VALENCIA QM NURSE, CHERYL R 599.0 URINARY TRACT INFECTION 10/28/2012 [...] of Venous Thrombosis and Embolism 10/28/2012 VALENCIA QM NURSE, CHERYL R 531.30 GASTRIC ULCER ACUTE 10/28/2012 VALENCIA QM NURSE, CHERYL R 599.0 URINARY TRACT INFECTION 10/28/2012 [...] K V76.10 BREAST CANCER SCREENING 12/16/2012 VIVIENNE QM NURSE, DONI S 611.71 MASTODYNIA 12/16/2012 VIVIENNE QM NURSE, DONI S 786.50 CHEST PAIN 12/16/2012 VIVIENNE QM NURSE, DONI S V76.10 BREAST CANCER SCREENING 12/16/2012 [...] K V76.10 BREAST CANCER SCREENING 12/16/2012 VALENCIA QM NURSE, CHERYL R 611.71 MASTODYNIA 12/16/2012 VALENCIA QM NURSE, CHERYL R 786.50 CHEST PAIN 12/16/2012 VALENCIA QM NURSE, CHERYL R V76.10 BREAST CANCER SCREENING 12/16/2012 DOYLE PA-C, CHARLES M 611.71 MASTODYNIA 12/16/2012 DOYLE PA-C, CHARLES M 786.50 CHEST PAIN 12/16/2012 DOYLE PA-C, CHARLES M V76.10 BREAST CANCER SCREENING 12/16/2012 ARIZA DO, JOSE ALBERTO K 611.71 MASTODYNIA 12/16/2012 ARIZA DO, JOSE ALBERTO K 786.50 CHEST PAIN 12/16/2012 ARIZA DO, JOSE ALBERTO K V76.10 BREAST CANCER SCREENING 12/16/2012 VALENCIA QM NURSE, CHERYL R 611.71 MASTODYNIA 12/16/2012 VALENCIA QM NURSE, CHERYL R 786.50 CHEST PAIN 12/16/2012 VALENCIA QM NURSE, CHERYL R V76.10 BREAST CANCER SCREENING 12/16/2012 [...] ALBERTO K 239.3 BREAST MASS 12/26/2012 VIVIENNE QM NURSE, DONI S 239.3 BREAST MASS 12/26/2012 ARIZA [...] ALBERTO K 850.9 CONCUSSION UNSPECIFIED 01/12/2013 VALENCIA QM NURSECHERYL R 850.9 CONCUSSION UNSPECIFIED 01/12/2013 ARIZA DO, [...] AND OTHER NONSPECIFIC SKIN ERUPTION 02/10/2013 VIVIENNE QM NURSE, DONI S 366.9 UNSPECIFIED CATARACT 02/10/2013 VIVIENNE QM NURSE, DONI S 782.1 RASH AND OTHER NONSPECIFIC [...] AND OTHER NONSPECIFIC SKIN ERUPTION 02/10/2013 VALENCIA QM NURSE, CHERYL R 366.9 UNSPECIFIED CATARACT 02/10/2013 VALENCIA [...] ALBERTO K 486 PNEUMONIA UNSPECIFIED 06/14/2013 VALENCIA QM NURSE, CHERYL R 599.70 HEMATURIA 06/14/2013 CHARLES DOYLE PA-C 599.70 HEMATURIA 06/14/2013 ARIZA DO, JOSE ALBERTO K 599.70 HEMATURIA 06/14/2013 VALENCIA QM NURSE, CHERYL R 599.70 HEMATURIA 06/14/2013 ARIZA DO, [...] UNSPECIFIED SLEEP APNEA 07/08/2013 ARIZA DO, JOSE ABLERTO K 780.57 UNSPECIFIED SLEEP APNEA 07/14/2013 VALENCIA [...] MD Ot 414. 01 CORONARY ATHEROSCLEROSIS OF [place] CORON 08/17/2013 REAGAN MCNEILL MD Ot 496 [...] MD Ot 272. 4 HYPERLIPIDEMIA NEC/NOS 10/01/2013 REAGNA MCNEILL MD Ot 278. 01 MORBID OBESITY 10/01/2013 REAGAN MCNEILL MD Ot 401. 9 HYPERTENSION NOS 10/01/2013 REAGAN MCNEILL MD Ot 414. 01 CORONARY ATHEROSCLEROSIS OF [place] CORON 10/01/2013 REAGAN MCNEILL MD Ot 496 [...] DO, JOSE ALBERTO K 724.2 LUMBAGO 10/07/2013 ARIAZ DO, JOSE ALBERTO K 724.2 LUMBAGO 10/07/2013 ARIZA DO, JOSE ALBERTO K 724.2 LUMBAGO 10/07/2013 ARIZA DO, JOSE ALBERTO K 724.2 LUMBAGO 10/07/2013 ARIZA DO, JOSE ALBERTO K 724.2 LUMBAGO 10/07/2013 ARIZA DO, JOSE ALBERTO K 724.2 LUMBAGO 11/26/2013 SHALOM RAMÍREZ APRN Ot 599 .0 URIN TRACT INFECTION NOS 12/05/2013 SHALOM RAMÍREZ APRN Ot 244 .9 HYPOTHYROIDISM NOS 12/05/2013 SHALOM RAMÍREZ QM NURSE Ot 278.01 MORBID OBESITY 12/05/2013 SHALOM RAMÍREZ QM NURSE Ot 338.29 OTHER CHRONIC PAIN 12/05/2013 SHALOM RAMÍREZ QM NURSE Ot 493.90 ASTHMA, UNSPECIFIED 12/05/2013 SHALOM RAMÍREZ APRN Ot 599 .0 URIN TRACT INFECTION NOS 12/05/2013 SHALOM RAMÍREZ QM NURSE Ot 716.90 ARTHROPATHY NOS-UNSPEC 12/05/2013 SHALOM RAMÍREZ APRN Ot 724 .2 LUMBAGO 12/05/2013 SHALOM RAMÍREZ APRN Ot 724 .5 BACKACHE NOS 12/05/2013 SHALOM RAMÍREZ QM NURSE Ot 780.57 UNSPECIFIED SLEEP APNEA 12/05/2013 SHALOM RAMÍREZ APRN Ot V46 .2 SUPPLEMENTAL OXYGEN 12/05/2013 SHALOM RAMÍREZ QM NURSE Ot V85.36 BODY MASS INDEX 36.0-36.9, ADULT 2013 MICHELE COTTON Ot 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 2013 MICHELE COTTON Ot 244.9 HYPOTHYROIDISM NOS 2013 MICHELE COTTON Ot 278.01 MORBID OBESITY 2013 MICHELE COTTON Ot 338.29 OTHER CHRONIC PAIN 2013 MICHELE COTTON Ot 493.20 CHRONIC OBSTRUCTIVE ASTHMA, NOS 2013 MICHELE CTOTON Ot 599.0 URIN TRACT INFECTION NOS 2013 MICHELE COTTON Ot 716.90 ARTHROPATHY NOS-UNSPEC 2013 MICHELE COTTON Ot 724.5 BACKACHE NOS 2013 MICHELE COTTON Ot 780.57 UNSPECIFIED SLEEP APNEA 2013 MICHELE COTTON Ot 789.09 ABDOMINAL PAIN, OTHER SPECIFIED SITE 2013 MICHELE COTTON Ot V13.02 PERSONAL HISTORY, URINARY (TRACT) INFECT 2013 MICHELE COTOTN Ot V58.62 ENCOUNT FOR LONG-TERM(CURRENT) USE OF [...] CAYDEN MOYA, CHAS S Ot 789.03 06/21/2014 [place] NORIS Resendiz Ot 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 [...] 565. 0 ANAL FISSURE 01/05/2015 SHALOM RAMÍREZ QM NURSE Ot 789.03 ABDOMINAL PAIN, RIGHT LOWER QUADRANT 01/05/2015 SHALOM RAMÍREZ QM NURSE Ot V45.89 POSTSURGICAL STATES NEC 01/12/2015 CELY VIGIL MD Ot 786.50 CHEST PAIN NOS 01/12/2015 CELY VIGIL MD Ot 786.52 PAINFUL RESPIRATION 01/12/2015 CELY VIGIL MD Ot V12.51 HX-VENOUS THROMBOSIS EMBOLISM 01/12/2015 CELY VIGLI MD Ot V12.55 PERSONAL HISTORY OF PULMONARY [...] VIVEK PA, CHARLES M Ot 486 01/17/2015 [facility] PA, MICHAEL K Ot 278.1 01/17/2015 [facility] PA, MICHAEL K Ot 414.00 01/17/2015 [facility] PA, MICHAEL K Ot 496 01/17/2015 [facility] PA, MICHAEL K Ot 786.09 01/17/2015 [facility] PA, MICHAEL K Ot 786.50 01/17/2015 [facility] [...] CALABRESE, CHARLES M Ot 397 .0 03/21/2015 VIVEK PA, CHARLES M Ot 424 .0 03/21/2015 VIVEK PA, CHARLES M Ot 786.05 03/21/2015 VIVEK PA, CHARLES M Ot V58.61 03/21/2015 VIVEK CALABRESE, CHARLSE M Ot 486 03/21/2015 MICHAEL WAGNER Ot [...] Ot 493. 90 03/21/2015 ALYSSA MOYA CATERINA Danielle Ot 786. 09 03/21/2015 BALDEV LITTLEJOHN DO [...] 04/14/2015 DEWEY PURDY MD Ot Z79. 01 LONGTERM (CURRENT) USE OF ANTICOAGULANT 04/18/2015 BALDEV [...] INITIAL 04/21/2015 CHARLES LOPEZ MD, Ot Z79.01 CONSULTING SOFTWARE ENGINEER (CURRENT) USE OF ANTICOAGULANT 04/21/2015 CHARLES LOPEZ MD Ot Z79.899 OTHER CONSULTING SOFTWARE ENGINEER (CURRENT) DRUG THERAPY 04/21/2015 CHARLES LOPEZ MD, Ot Z90.710 ACQUIRED ABSENCE OF BOTH CERVIX AND UTER 05/02/2015 CHAS RODARTE DO Ot D25.9 05/02/2015 CAYDEN MOYA, CHAS Patel Ot Z01.812 05/02/2015 CAYDEN MOYA, CHAS Patel Ot Z11.2 05/02/2015 CHEN INFANTE APRN Ot J06.9 05/10/2015 CAYDEN MOYA, CHAS Patel Ot D25.9 05/10/2015 [facility] , [facility] Patel Ot Z01.812 05/10/2015 [facility] Patel Ot Z11.2 05/10/2015 CHEN INFANTE APRN Ot J06.9 05/15/2015 BESSY KARENA MOYAA Astrid Ot E66.01 MORBID (SEVERE) OBESITY DUE TO EXCESS CA 05/15/2015 KARENA DOHERTY [place] Resendiz Ot K63.89 OTHER SPECIFIED DISEASES OF INTESTINE 05/15/2015 NORIS DOHERTY DO Ot N39.0 URINARY TRACT INFECTION, SITE NOT SPECIF 05/15/2015 NORIS DOHERTY DO Ot Z79.01 CONSULTING SOFTWARE ENGINEER (CURRENT) USE OF ANTICOAGULANT 05/15/2015 NORIS DOHERTY [...] OF GUS 06/21/2015 MICHELE COTTON Ot Z79.01 CONSULTING SOFTWARE ENGINEER (CURRENT) USE OF ANTICOAGULANT 06/21/2015 MICHELE COTTON Ot Z86.711 PERSONAL HISTORY OF PULMONARY EMBOLISM 06/22/2015 MIGDALIA JIMENEZ DO Ot D37.4 06/22/2015 MIGDALIA JIMENEZ DO Ot E03.9 06/22/2015 MIGDALIA JIMENEZ DO Ot Z86.010 08/10/2015 Ot E66.01 MOR BID (SEVERE) OBESITY DUE TO EXCESS CA 08/10/2015 Ot I10 ESSENT IAL (PRIMARY) HYPERTENSION 08/10/2015 Ot I25.10 ATH SCL HEART DISEASE OF [place] CORONARY 08/10/2015 Ot I51.7 CARD IOMEGALY 08/10/2015 Ot 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, U 08/10/2015 Ot R55 SYNCOP E AND COLLAPSE 08/10/2015 Ot S09.90XA U NSPECIFIED INJURY OF HEAD, INITIAL ENCO 08/10/2015 Ot W01.0XXA F ALL SAME LEV FROM SLIP/TRIP W/O STRIKE 08/10/2015 Ot Y[address] IN [facility] NON-INSTITUT (PRIVATE 08/10/2015 Ot Y99.8 OTHE R EXTERNAL CAUSE STATUS 08/10/2015 Ot Z85.3 PERS ONAL HISTORY OF MALIGNANT NEOPLASM O 08/10/2015 Ot Z86.718 PE RSONAL HISTORY OF OTHER VENOUS THROMBO 08/10/2015 Ot Z98.1 ARTH RODESIS STATUS 09/04/2015 SHALOM RAMÍREZ APRN Ot E66 .9 OBESITY, UNSPECIFIED 09/04/2015 RAMÍREZ, PETER J QM NURSE Ot I10 ESSENTIAL (PRIMARY) HYPERTENSION 09/04/2015 SHALOM RAMÍREZ QM NURSE Ot I51 .7 CARDIOMEGALY 09/04/2015 SHALOM RAMÍREZ QM NURSE Ot J44 .9 CHRONIC OBSTRUCTIVE PULMONARY DISEASE, U 09/04/2015 SHALOM RAMÍREZ QM NURSE Ot R07.89 OTHER CHEST PAIN 09/06/2015 SHALOM RAMÍREZ QM NURSE Ot E66 .9 OBESITY, UNSPECIFIED 09/06/2015 SHALOM RAMÍREZ QM NURSE Ot I10 ESSENTIAL (PRIMARY) HYPERTENSION 09/06/2015 SHALOM RAMÍREZ QM NURSE Ot I51 .7 CARDIOMEGALY 09/06/2015 SHALOM RAMÍREZ QM NURSE Ot J44 .9 CHRONIC OBSTRUCTIVE PULMONARY DISEASE, U 09/06/2015 SHALOM RAMÍREZ QM NURSE Ot R07.89 OTHER CHEST PAIN 09/06/2015 REAGAN [...] Ot I25. 10 ATHSCL HEART DISEASE OF [place] CORONARY 09/06/2015 REAGAN MCNEILL MD Ot J44. [...] 09/06/2015 REAGAN MCNEILL MD Ot Z79. 01 CONSULTING SOFTWARE ENGINEER (CURRENT) USE OF ANTICOAGULANT 09/06/2015 REAGAN MCNEILL MD Ot Z79.899 OTHER LONGTERM (CURRENT) DRUG THERAPY 09/06/2015 REAGAN MCNEILL MD Ot Z86.711 PERSONAL HISTORY OF PULMONARY EMBOLISM 09/06/2015 REAGAN MCNEILL MD Ot E78. 2 MIXED HYPERLIPIDEMIA 09/06/2015 REAGAN MCNEILL MD Ot I10 ESSENTIAL (PRIMARY) HYPERTENSION 09/06/2015 REAGAN MCNEILL MD Ot I25. 10 ATHSCL HEART DISEASE OF [place] CORONARY 09/06/2015 REAGAN MCNEILL MD Ot R55 [...] Ot I25. 10 ATHSCL HEART DISEASE OF [place] CORONARY 09/11/2015 REAGAN MCNEILL MD Ot R55 [...] Ot I25. 10 ATHSCL HEART DISEASE OF [place] CORONARY 09/13/2015 REAGAN MCNEILL MD Ot J44. 9 CHRONIC OBSTRUCTIVE PULMONARY DISEASE, U 09/13/2015 REAGAN MCNEILL MD Ot R55 SYNCOPE AND COLLAPSE 09/13/2015 REAGAN MCNEILL MD Ot R94. 39 ABNORMAL RESULT OF OTHER CARDIOVASCULAR 09/13/2015 REAGAN MCNEILL MD Ot Z68. 43 BODY MASS INDEX (BMI) 50-59.9 , ADULT 09/13/2015 REAGAN MCNEILL MD Ot Z79. 01 CONSULTING SOFTWARE ENGINEER (CURRENT) USE OF ANTICOAGULANT 09/13/2015 REAGAN MCNEILL MD Ot Z79.899 OTHER CONSULTING SOFTWARE ENGINEER (CURRENT) DRUG THERAPY 09/13/2015 REAGAN MCNEILL MD [...] Ot I25. 10 ATHSCL HEART DISEASE OF [place] CORONARY 10/04/2015 REAGAN MCNEILL MD Ot J44. 9 CHRONIC OBSTRUCTIVE PULMONARY DISEASE, U 10/04/2015 REAGAN MCNEILL MD Ot R55 SYNCOPE AND COLLAPSE 10/04/2015 REAGAN MCNEILL MD Ot R94. 39 ABNORMAL RESULT OF OTHER CARDIOVASCULAR 10/04/2015 REAGAN MCNEILL MD Ot Z68. 43 BODY MASS INDEX (BMI) 50-59.9 , ADULT 10/04/2015 REAGAN MCNEILL MD Ot Z79. 01 LONGTERM (CURRENT) USE OF ANTICOAGULANT 10/04/2015 REAGAN MCNEILL MD Ot Z79.899 OTHER CONSULTING SOFTWARE ENGINEER (CURRENT) DRUG THERAPY 10/04/2015 REAGAN MCNEILL MD [...] 610 .3 FIBROSCLEROSIS OF BREAST 02/15/2016 GARETT ANM ACE Z Ot V58.6 1 ANTICOAGULANTS,LT,CURRENT USE [...] APRN Ot I25.10 ATHSCL HEART DISEASE OF [place] CORONARY 02/16/2016 SHALOM RAMÍREZ APRN Ot R07 .9 CHEST PAIN, UNSPECIFIED 02/16/2016 SHALOM RAMÍREZ APRN Ot Z79.01 CONSULTING SOFTWARE ENGINEER (CURRENT) USE OF ANTICOAGULANT 02/16/2016 SHALOM RAMÍREZ APRN Ot Z79.899 OTHER CONSULTING SOFTWARE ENGINEER (CURRENT) DRUG THERAPY 02/16/2016 SHALOM RAMÍREZ APRN Ot Z86.711 PERSONAL HISTORY OF PULMONARY EMBOLISM 02/18/2016 SHALOM RAMÍREZ APRN Ot I25.10 ATHSCL HEART DISEASE OF [place] CORONARY 02/18/2016 SHALOM RAMÍREZ APRN Ot R07 .9 CHEST PAIN, UNSPECIFIED 02/18/2016 SHALOM RAMÍREZ APRN Ot Z79.01 LONGTERM (CURRENT) USE OF ANTICOAGULANT 02/18/2016 SHALOM RAMÍREZ APRN Ot Z79.899 OTHER CONSULTING SOFTWARE ENGINEER (CURRENT) DRUG THERAPY 02/18/2016 SHALOM RAMÍREZ APRN Ot Z86.711 PERSONAL HISTORY OF PULMONARY EMBOLISM 02/22/2016 SHALOM RAMÍREZ APRN Ot I25.10 ATHSCL HEART DISEASE OF [place] CORONARY 02/22/2016 SHALOM RAMÍREZ APRN Ot R07 .9 CHEST PAIN, UNSPECIFIED 02/22/2016 SHALOM RAMÍREZ APRN Ot Z79.01 CONSULTING SOFTWARE ENGINEER (CURRENT) USE OF ANTICOAGULANT 02/22/2016 SHALOM RAMÍREZ QM NURSE Ot Z79.899 OTHER CONSULTING SOFTWARE ENGINEER (CURRENT) DRUG THERAPY 02/22/2016 SHALOM RAMÍREZ QM NURSE Ot Z86.711 PERSONAL HISTORY OF PULMONARY EMBOLISM 07/18/2016 KAVYA PATRICK QM NURSE Ot E66.01 MORBID (SEVERE) OBESITY DUE TO EXCESS CA 07/18/2016 KAVYA PATRICK QM NURSE Ot R10.84 GENERALIZED ABDOMINAL PAIN 07/18/2016 KAVYA PATRICK QM NURSE Ot Z68.43 BODY MASS INDEX (BMI) 50-59.9 , ADULT 08/07/2016 CELINA KAVYA Jeffrey QM NURSE Ot E66.01 MORBID (SEVERE) OBESITY DUE TO EXCESS CA 08/07/2016 PATRICK, KAVYA Jeffrey QM NURSE Ot R10.84 GENERALIZED ABDOMINAL PAIN 08/07/2016 PATRICK KAVYA Murphy QM NURSE Ot Z68.43 BODY MASS INDEX (BMI) 50-59.9 , ADULT 08/15/2016 PATRICK KAVYA Murphy QM NURSE Ot E66.01 MORBID (SEVERE) OBESITY DUE TO EXCESS CA 08/15/2016 PATRICKKAVYA COOLEY QM NURSE Ot R10.84 GENERALIZED ABDOMINAL PAIN 08/15/2016 PATRICK, KAVYA L QM NURSE Ot Z68.43 BODY MASS INDEX (BMI) 50-59.9 , ADULT 09/04/2016 MIRIAM SPENCER REGISTRY NURSE Ot E66.01 MORBID (SEVERE) OBESITY DUE TO EXCESS CA 09/04/2016 TJ MIRIAM REGISTRY NURSE Ot I10 ESSENTIAL (PRIMARY) HYPERTENSION 09/04/2016 MIRIAM SPENCER REGISTRY NURSE Ot I25.10 ATHSCL HEART DISEASE OF [place] CORONARY 09/04/2016 MIRIAM SPENCER REGISTRY NURSE Ot M17.11 UNILATERAL PRIMARY OSTEOARTHRITIS, RIGHT 09/04/2016 TJ MIRIAM REGISTRY NURSE Ot 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 09/04/2016 MIRIAM SPENCERP Ot S63.501A UNSPECIFIED SPRAIN OF RIGHT WRIST, INITI 09/04/2016 MIRIAM SPENCERP Ot S69.91XA UNSP INJURY OF RIGHT WRIST, HAND AND FIN 09/04/2016 MIRIAM SPENCERP Ot S89.91XA UNSPECIFIED INJURY OF RIGHT LOWER LEG, I 09/04/2016 MIRIAM SPENCER REGISTRY NURSE Ot W05.0XXA FALL FROM NON-MOVING WHEELCHAIR, INITIAL 09/04/2016 TJMIRIAM YusufP Ot Y99.8 OTHER EXTERNAL CAUSE STATUS 09/04/2016 TJMIRIAM YusufP Ot Z79.899 OTHER CONSULTING SOFTWARE ENGINEER (CURRENT) DRUG THERAPY 09/04/2016 TJMIRIAM Yusuf Ot Z86.718 PERSONAL HISTORY OF OTHER VENOUS THROMBO 09/30/2016 REAGAN MCNEILL MD Ot Z51. 81 ENCOUNTER FOR THERAPEUTIC DRUG LEVEL MON 09/30/2016 REAGAN MCNEILL MD, Ot Z79. 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 10/14/2016 MIRIAM SPENCER Ot E66.01 MORBID (SEVERE) OBESITY DUE TO EXCESS CA 10/14/2016 MIRIAM SPENCERP Ot I10 ESSENTIAL (PRIMARY) HYPERTENSION 10/14/2016 MIRIAM SPENCER Ot I25.10 ATHSCL HEART DISEASE OF [place] CORONARY 10/14/2016 MIRIAM SPENCERP Ot M17.11 UNILATERAL [...] STATUS 10/14/2016 MIRIAM SPENCERP Ot Z79.899 OTHER LONGTERM (CURRENT) DRUG THERAPY 10/14/2016 MIRIAM SPENCER Ot Z86.718 PERSONAL HISTORY OF OTHER VENOUS THROMBO 10/16/2016 MIRIAM SPENCERP Ot E66.01 MORBID (SEVERE) OBESITY DUE TO EXCESS CA 10/16/2016 MIRIAM SPENCERP Ot I10 ESSENTIAL (PRIMARY) HYPERTENSION 10/16/2016 MIRIAM SPENCERP Ot I25.10 ATHSCL HEART DISEASE OF [place] CORONARY 10/16/2016 MIRIAM SPENCER Ot M17.11 UNILATERAL [...] STATUS 10/16/2016 MIRIAM SPENCER Ot Z79.899 OTHER LONGTERM (CURRENT) DRUG THERAPY 10/16/2016 MIRIAM SPENCER Ot Z86.718 PERSONAL HISTORY OF OTHER VENOUS THROMBO 10/30/2016 REAGAN MCNEILL MD Ot Z51. 81 ENCOUNTER FOR THERAPEUTIC DRUG LEVEL MON 10/30/2016 REAGAN MCNEILL MD Ot Z79. 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 81 ENCOUNTER FOR THERAPEUTIC DRUG LEVEL MON 11/06/2016 REAGAN MCNEILL MD Ot Z79. 01 CONSULTING SOFTWARE ENGINEER (CURRENT) USE OF ANTICOAGULANT 11/06/2016 REAGAN MCNEILL MD Ot Z86.711 PERSONAL HISTORY OF PULMONARY EMBOLISM 12/28/2016 REAGAN MCNEILL MD Ot Z51. 81 ENCOUNTER FOR THERAPEUTIC DRUG LEVEL MON 12/28/2016 REAGAN MCNEILL MD Ot Z79. 01 LONGTERM (CURRENT) USE OF ANTICOAGULANT 12/28/2016 REAGAN [...] Astrid Ot I25.10 ATHSCL HEART DISEASE OF [place] CORONARY 12/28/2016 BESSY NORIS Astrid Ot I73.9 PERIPHERAL VASCULAR DISEASE, UNSPECIFIED 12/28/2016 BESSY NORIS K Ot J45.909 UNSPECIFIED ASTHMA, UNCOMPLICATED 12/28/2016 BESSY NORIS K Ot K21.9 GASTRO-ESOPHAGEAL REFLUX DISEASE WITHOUT 12/28/2016 BESSY NORIS Astrid Ot M19.90 UNSPECIFIED OSTEOARTHRITIS, UNSPECIFIED 12/28/2016 BESSY NORIS K Ot R51 HEADACHE 12/28/2016 BESSY DO NORIS K Ot Z79.01 CONSULTING SOFTWARE ENGINEER (CURRENT) USE OF ANTICOAGULANT 12/28/2016 BESSY NORIS K Ot Z80.0 FAMILY HISTORY OF MALIGNANT NEOPLASM OF 12/28/2016 BESSY NORIS Ot Z82.49 FAMILY HX OF ISCHEM HEART [...] DO Ot I25.10 ATHSCL HEART DISEASE OF [place] CORONARY 12/30/2016 NORIS DOHERTY DO Ot I73.9 PERIPHERAL VASCULAR DISEASE, UNSPECIFIED 12/30/2016 NORIS DOHERTY DO Ot J45.909 UNSPECIFIED ASTHMA, UNCOMPLICATED 12/30/2016 NORIS DOHERTY DO Ot K21.9 GASTRO-ESOPHAGEAL REFLUX DISEASE WITHOUT 12/30/2016 NORIS DOHERTY DO Ot M19.90 UNSPECIFIED OSTEOARTHRITIS, UNSPECIFIED 12/30/2016 NORIS DOHERTY DO Ot R51 HEADACHE 12/30/2016 NORIS DOHERTY DO Ot Z79.01 LONGTERM (CURRENT) [...] DO Ot I25.10 ATHSCL HEART DISEASE OF [place] CORONARY 01/03/2017 BESSY MOYA NORIS Resendiz Ot [...] MD Ot I25.10 ATHSCL HEART DISEASE OF [place] CORONARY 01/20/2017 CHARLES LOPEZ MD, Ot I73.9 [...] HEADACHE 01/20/2017 CHARLES LOPEZ MD, Ot Z79.01 CONSULTING SOFTWARE ENGINEER (CURRENT) USE OF ANTICOAGULANT 01/20/2017 CHARLES LOPEZ [...] MD Ot I25.10 ATHSCL HEART DISEASE OF [place] CORONARY 01/22/2017 CHARLES LOPEZ MD, Ot I73.9 [...] HEADACHE 01/22/2017 CHARLES LOPEZ MD, Ot Z79.01 LONGTERM (CURRENT) USE OF ANTICOAGULANT 01/22/2017 CHARLES LOPEZ [...] HISTORY OF URINARY CALCULI 07/13/2017 PAYAL VIGIL QM NURSE Ot J98.11 ATELECTASIS 07/13/2017 PAYAL VIGIL APRN Ot Z87.442 PERSONAL HISTORY OF URINARY CALCULI 07/31/2017 REAGAN MCNEILL MD Ot Z51. 81 ENCOUNTER FOR THERAPEUTIC DRUG LEVEL MON 07/31/2017 REAGAN MCNEILL MD, Ot Z79. 01 CONSULTING SOFTWARE ENGINEER (CURRENT) USE OF ANTICOAGULANT 07/31/2017 REAGAN MCNEILL MD, Ot Z86.711 PERSONAL HISTORY OF PULMONARY EMBOLISM 07/31/2017 PAYAL VIGIL APRN Ot J98.11 ATELECTASIS 07/31/2017 PAYAL VIGIL APRN Ot Z87.442 PERSONAL HISTORY OF URINARY CALCULI 08/06/2017 MICHAEL WAGNER Ot I10 ESSENTIAL (PRIMARY) HYPERTENSION 08/06/2017 MICHAEL WAGNER Ot I25.10 ATHSCL HEART DISEASE OF [place] CORONARY 08/06/2017 MICHAEL WAGNER Ot R06.09 OTHER FORMS OF DYSPNEA 08/06/2017 MICHAEL WAGNER Ot R07.89 OTHER CHEST PAIN 08/07/2017 REAGAN MCNEILL MD Ot Z51. 81 ENCOUNTER FOR THERAPEUTIC DRUG LEVEL MON 08/07/2017 REAGAN MCNEILL MD Ot Z79. 01 CONSULTING SOFTWARE ENGINEER (CURRENT) USE OF ANTICOAGULANT 08/07/2017 REAGAN MCNEILL [...] Ot 786.05 SHORTNESS OF BREATH 08/19/2017 CHARLES FREDE Ot V58.61 ANTICOAGULANTS,LT,CURRENT USE 08/19/2017 CHARLES FREED [...] DO Ot 626.8 MENSTRUAL DISORDER NEC 08/19/2017 CYADEN CHAS MOYA Ot 627.1 POSTMENOPAUSAL BLEEDING 08/19/2017 [...] 08/19/2017 REAGAN MCNEILL MD, Ot Z79. 01 CONSULTING SOFTWARE ENGINEER (CURRENT) USE OF ANTICOAGULANT 08/19/2017 REAGAN MCNEILL MD, Ot Z86.711 PERSONAL HISTORY OF PULMONARY EMBOLISM 08/19/2017 PAYAL VIGIL APRN Ot M54.2 CERVICALGIA 08/19/2017 PAYAL VIGIL APRN Ot Z53.29 PROC/TRTMT NOT CRD OUT BEC PT DECISION F 08/19/2017 REAGAN MCNEILL MD, Ot Z51. 81 ENCOUNTER FOR THERAPEUTIC DRUG LEVEL MON 08/19/2017 REAGAN MCNEILL MD, Ot Z79. 01 CONSULTING SOFTWARE ENGINEER (CURRENT) USE OF ANTICOAGULANT 08/19/2017 REAGAN MCNEILL MD, Ot Z86.711 PERSONAL HISTORY OF PULMONARY EMBOLISM 08/19/2017 PAYAL VIGIL APRN Ot J98.11 ATELECTASIS 08/19/2017 PAYAL VIGIL APRN Ot Z87.442 PERSONAL HISTORY OF URINARY CALCULI 08/19/2017 MICHAEL WAGNER Ot I10 ESSENTIAL (PRIMARY) HYPERTENSION 08/19/2017 MICHAEL WAGNER Ot I25.10 ATHSCL HEART DISEASE OF [place] CORONARY 08/19/2017 MICHAEL WAGNER Ot R06.09 OTHER [...] Ot 493. 90 ASTHMA, UNSPECIFIED 08/19/2017 CATERINA SHHA DO Ot 786. 09 RESPIRATORY ABNORM NEC [...] 08/19/2017 REAGAN MCNEILL MD, Ot Z79. 01 CONSULTING SOFTWARE ENGINEER (CURRENT) USE OF ANTICOAGULANT 08/19/2017 REAGAN MCNEILL MD, Ot Z86.711 PERSONAL HISTORY OF PULMONARY EMBOLISM 08/19/2017 PAYAL VIGIL APRN Ot M54.2 CERVICALGIA 08/19/2017 PAYAL VIGIL APRN Ot Z53.29 PROC/TRTMT NOT CRD OUT BEC PT DECISION F 08/19/2017 REAGAN MCNEILL MD, Ot Z51. 81 ENCOUNTER FOR THERAPEUTIC DRUG LEVEL MON 08/19/2017 REAGAN MCNEILL MD, Ot Z79. 01 CONSULTING SOFTWARE ENGINEER (CURRENT) USE OF ANTICOAGULANT 08/19/2017 REAGAN MCNEILL MD, Ot Z86.711 PERSONAL HISTORY OF PULMONARY EMBOLISM 08/19/2017 PAYAL VIGIL APRN Ot J98.11 ATELECTASIS 08/19/2017 PAYAL VIGIL APRN Ot Z87.442 PERSONAL HISTORY OF URINARY CALCULI 08/19/2017 MICHAEL WAGNER Ot I10 ESSENTIAL (PRIMARY) HYPERTENSION 08/19/2017 MICHAEL WAGNER Ot I25.10 ATHSCL HEART DISEASE OF [place] CORONARY 08/19/2017 MICHAEL WAGNER Ot R06.09 OTHER [...] MD Ot I25.110 ATHSCL HEART DISEASE OF [place] COR ART W 08/20/2017 REAGAN MCNEILL MD Ot I77. 1 STRICTURE OF ARTERY 08/20/2017 REAGAN MCNEILL MD, Ot J45.909 UNSPECIFIED ASTHMA, UNCOMPLICATED 08/20/2017 REAGAN MCNEILL MD Ot R82. 90 UNSPECIFIED ABNORMAL FINDINGS IN URINE 08/20/2017 REAGAN MCNEILL MD Ot Z68. 43 BODY MASS INDEX (BMI) 50-59.9 , ADULT 08/20/2017 REAGAN MCNEILL MD Ot Z79. 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 81 ENCOUNTER FOR THERAPEUTIC DRUG LEVEL MON 08/20/2017 REAGAN MCNEILL MD Ot Z79. 01 CONSULTING SOFTWARE ENGINEER (CURRENT) USE OF ANTICOAGULANT 08/20/2017 REAGAN MCNEILL MD, Ot Z86.711 PERSONAL HISTORY OF PULMONARY EMBOLISM 08/20/2017 PAYAL VIGIL APRN Ot M54.2 CERVICALGIA 08/20/2017 PAYAL VIGIL APRN Ot Z53.29 PROC/TRTMT NOT CRD OUT BEC PT DECISION F 08/20/2017 REAGAN MCNEILL MD, Ot Z51. 81 ENCOUNTER FOR THERAPEUTIC DRUG LEVEL MON 08/20/2017 REAGAN MCNEILL MD, Ot Z79. 01 CONSULTING SOFTWARE ENGINEER (CURRENT) USE OF ANTICOAGULANT 08/20/2017 REAGAN MCNEILL MD, Ot Z86.711 PERSONAL HISTORY OF PULMONARY EMBOLISM 08/20/2017 PAYAL VIGIL APRN, Ot J98.11 ATELECTASIS 08/20/2017 PAYAL VIGIL APRN Ot Z87.442 PERSONAL HISTORY OF URINARY CALCULI 08/20/2017 MICHAEL WAGNER Ot I10 ESSENTIAL (PRIMARY) HYPERTENSION 08/20/2017 MICHAEL WAGNER Ot I25.10 ATHSCL HEART DISEASE OF [place] CORONARY 08/20/2017 MICHAEL WAGNER Ot R06.09 OTHER [...] APRN Ot I25.10 ATHSCL HEART DISEASE OF [place] CORONARY 08/20/2017 SHALOM RAMÍREZ APRN Ot I73 .9 PERIPHERAL VASCULAR DISEASE, UNSPECIFIED 08/20/2017 SHALOM RAMÍREZ APRN Ot J44 .9 CHRONIC OBSTRUCTIVE PULMONARY DISEASE, U 08/20/2017 SHALOM RAMÍREZ APRN Ot K21 .9 GASTRO-ESOPHAGEAL REFLUX DISEASE WITHOUT 08/20/2017 SHALOM RAMÍREZ APRN Ot R07 .2 PRECORDIAL PAIN 08/20/2017 SHALOM RAMÍREZ APRN Ot Z68.43 BODY MASS INDEX (BMI) 50-59.9 , ADULT 08/20/2017 SHALOM RAMÍREZ APRN Ot Z79.01 CONSULTING SOFTWARE ENGINEER (CURRENT) USE OF ANTICOAGULANT 08/20/2017 SHALOM RAMÍREZ APRN Ot Z79.02 LONGTERM (CURRENT) USE OF ANTITHROMBOTI 08/20/2017 SHALOM RAMÍREZ APRN Ot Z79.51 LONGTERM (CURRENT) USE OF INHALED STERO 08/20/2017 SHALOM RAMÍREZ APRN Ot Z79.82 LONGTERM (CURRENT) USE OF ASPIRIN 08/20/2017 SHALOM RAMÍREZ [...] 08/20/2017 REAGAN MCNEILL MD, Ot Z79. 01 CONSULTING SOFTWARE ENGINEER (CURRENT) USE OF ANTICOAGULANT 08/20/2017 REAGAN MCNEILL MD, Ot Z86.711 PERSONAL HISTORY OF PULMONARY EMBOLISM 08/20/2017 PAYAL VIGIL APRN Ot M54.2 CERVICALGIA 08/20/2017 PAYAL VIGIL APRN Ot Z53.29 PROC/TRTMT NOT CRD OUT BEC PT DECISION F 08/20/2017 REAGAN MCNEILL MD, Ot Z51. 81 ENCOUNTER FOR THERAPEUTIC DRUG LEVEL MON 08/20/2017 REAGAN MCNEILL MD, Ot Z79. 01 CONSULTING SOFTWARE ENGINEER (CURRENT) USE OF ANTICOAGULANT 08/20/2017 REAGAN MCNEILL MD, Ot Z86.711 PERSONAL HISTORY OF PULMONARY EMBOLISM 08/20/2017 PAYAL VIGIL APRN Ot J98.11 ATELECTASIS 08/20/2017 PAYAL VIGIL APRN Ot Z87.442 PERSONAL HISTORY OF URINARY CALCULI 08/20/2017 MICHAEL WAGNER Ot I10 ESSENTIAL (PRIMARY) HYPERTENSION 08/20/2017 MICHAEL WAGNER Ot I25.10 ATHSCL HEART DISEASE OF [place] CORONARY 08/20/2017 MICHAEL WAGNER Ot R06.09 OTHER [...] HISTORY OF COLONIC POLYPS 08/20/2017 PAYAL VIGIL QM NURSE Ot M54.6 PAIN IN THORACIC SPINE 08/20/2017 KAVYA PATRICK QM NURSE Ot E66.01 MORBID (SEVERE) OBESITY DUE TO EXCESS CA 08/20/2017 PATRICKKAVYA COOLEY QM NURSE Ot R10.84 GENERALIZED ABDOMINAL PAIN 08/20/2017 PATRICKKAVYA COOLEY QM NURSE Ot Z68.43 BODY MASS INDEX (BMI) 50-59.9 , ADULT 08/20/2017 REAGAN MCNEILL MD, Ot Z51. 81 ENCOUNTER FOR THERAPEUTIC DRUG LEVEL MON 08/20/2017 REAGAN MCNEILL MD, Ot Z79. 01 CONSULTING SOFTWARE ENGINEER (CURRENT) USE OF ANTICOAGULANT 08/20/2017 REAGAN MCNEILL MD, Ot Z86.711 PERSONAL HISTORY OF PULMONARY EMBOLISM 08/20/2017 PAYAL VIGIL QM NURSE Ot M54.2 CERVICALGIA 08/20/2017 PAYAL VIGIL APRN Ot Z53.29 PROC/TRTMT NOT CRD OUT BEC PT DECISION F 08/20/2017 REAGAN MCNEILL MD, Ot Z51. 81 ENCOUNTER FOR THERAPEUTIC DRUG LEVEL MON 08/20/2017 REAGAN MCNEILL MD, Ot Z79. 01 CONSULTING SOFTWARE ENGINEER (CURRENT) USE OF ANTICOAGULANT 08/20/2017 REAGAN MCNEILL MD, Ot Z86.711 PERSONAL HISTORY OF PULMONARY EMBOLISM 08/20/2017 PAYAL VIGIL APRN Ot J98.11 ATELECTASIS 08/20/2017 PAYAL VIGIL QM NURSE Ot Z87.442 PERSONAL HISTORY OF URINARY CALCULI 08/20/2017 MICHAEL WAGNER Ot I10 ESSENTIAL (PRIMARY) HYPERTENSION 08/20/2017 MICHAEL WAGENR Ot I25.10 ATHSCL HEART DISEASE OF [place] CORONARY 08/20/2017 MICHAEL WAGNER Ot R06.09 OTHER FORMS OF DYSPNEA 08/20/2017 MICHAEL WAGNER Ot R07.89 OTHER CHEST PAIN 08/20/2017 REAGAN MCNEILL MD Ot E78. 5 HYPERLIPIDEMIA, UNSPECIFIED 08/20/2017 REAGAN MCNEILL MD Ot I10 ESSENTIAL (PRIMARY) HYPERTENSION 08/20/2017 CHARITO MD, BASHAR J Ot I25.110 ATHSCL HEART DISEASE OF [place] COR ART W 08/20/2017 CHARITO NAM, REAGAN [...] DUE TO EXCESS CA 08/21/2017 KAVYA PATRICK QM NURSE Ot R10.84 GENERALIZED ABDOMINAL PAIN 08/21/2017 KAVYA PATRICK APRN Ot Z68.43 BODY MASS INDEX (BMI) 50-59.9 , ADULT 08/21/2017 REAGAN MCNEILL MD, Ot Z51. 81 ENCOUNTER FOR THERAPEUTIC DRUG LEVEL MON 08/21/2017 REAGAN MCNEILL MD, Ot Z79. 01 LONGTERM (CURRENT) USE OF ANTICOAGULANT 08/21/2017 REAGAN MCNEILL MD, Ot Z86.711 PERSONAL HISTORY OF PULMONARY EMBOLISM 08/21/2017 PAYAL VIGIL APRN Ot M54.2 CERVICALGIA 08/21/2017 PAYAL VIGIL APRN Ot Z53.29 PROC/TRTMT NOT CRD OUT BEC PT DECISION F 08/21/2017 REAGAN MCNEILL MD, Ot Z51. 81 ENCOUNTER FOR THERAPEUTIC DRUG LEVEL MON 08/21/2017 REAGAN MCNEILL MD, Ot Z79. 01 CONSULTING SOFTWARE ENGINEER (CURRENT) USE OF ANTICOAGULANT 08/21/2017 REAGAN MCNEILL MD, Ot Z86.711 PERSONAL HISTORY OF PULMONARY EMBOLISM 08/21/2017 PAYAL VIGIL APRN Ot J98.11 ATELECTASIS 08/21/2017 PAYAL VIGIL APRN Ot Z87.442 PERSONAL HISTORY OF URINARY CALCULI 08/21/2017 MICHAEL WAGNER Ot I10 ESSENTIAL (PRIMARY) HYPERTENSION 08/21/2017 MICHAEL WAGNER Ot I25.10 ATHSCL HEART DISEASE OF [place] CORONARY 08/21/2017 MICHAEL WAGNER Ot R06.09 OTHER [...] MD Ot I25.110 ATHSCL HEART DISEASE OF [place] COR ART W 08/21/2017 REAGNA MCNEILL MD Ot I77. 1 STRICTURE OF ARTERY 08/21/2017 REAGAN MCNEILL MD, Ot J45.909 UNSPECIFIED ASTHMA, UNCOMPLICATED 08/21/2017 REAGAN MCNEILL MD Ot Z68. 43 BODY MASS INDEX (BMI) 50-59.9 , ADULT 08/21/2017 REAGAN MCNEILL MD Ot Z79. 01 LONGTERM (CURRENT) USE OF ANTICOAGULANT 08/21/2017 REAGAN MCNEILL [...] APRN Ot I25.10 ATHSCL HEART DISEASE OF [place] CORONARY 08/24/2017 SHALOM RAMÍREZ APRN Ot I73 .9 PERIPHERAL VASCULAR DISEASE, UNSPECIFIED 08/24/2017 SHALOM RAMÍREZ APRN Ot J44 .9 CHRONIC OBSTRUCTIVE PULMONARY DISEASE, U 08/24/2017 SHALOM RAMÍREZ APRN Ot K21 .9 GASTRO-ESOPHAGEAL REFLUX DISEASE WITHOUT 08/24/2017 SHALOM RAMÍREZ APRN Ot R07 .2 PRECORDIAL PAIN 08/24/2017 SHALOM RAMÍREZ APRN Ot Z68.43 BODY MASS INDEX (BMI) 50-59.9 , ADULT 08/24/2017 SHALOM RAMÍREZ APRN Ot Z79.01 CONSULTING SOFTWARE ENGINEER (CURRENT) USE OF ANTICOAGULANT 08/24/2017 SHALOM RAMÍREZ APRN Ot Z79.02 CONSULTING SOFTWARE ENGINEER (CURRENT) USE OF ANTITHROMBOTI 08/24/2017 SHALOM RAMÍREZ APRN Ot Z79.51 CONSULTING SOFTWARE ENGINEER (CURRENT) USE OF INHALED STERO 08/24/2017 SHALOM RAMÍREZ APRN Ot Z79.82 CONSULTING SOFTWARE ENGINEER (CURRENT) USE OF ASPIRIN 08/24/2017 SHALOM RAMÍREZ [...] J Ot E66. 9 OBESITY, UNSPECIFIED 08/24/2017 REAGAN MCNEILL MD Ot E78. 5 HYPERLIPIDEMIA, UNSPECIFIED 08/24/2017 REAGAN MCNEILL MD Ot I10 ESSENTIAL (PRIMARY) HYPERTENSION 08/24/2017 REAGAN MCNEILL MD Ot I25.110 ATHSCL HEART DISEASE OF [place] COR ART W 08/24/2017 REAGAN MCNEILL MD Ot I77. 1 STRICTURE OF ARTERY 08/24/2017 REAGAN MCNEILL MD Ot J45.909 UNSPECIFIED ASTHMA, UNCOMPLICATED 08/24/2017 REAGAN MCNEILL MD Ot R82. 90 UNSPECIFIED ABNORMAL FINDINGS IN URINE 08/24/2017 REAGAN MCNEILL MD Ot Z68. 43 BODY MASS INDEX (BMI) 50-59.9 , ADULT 08/24/2017 REAGAN MCNEILL MD Ot Z79. 01 LONGTERM (CURRENT) USE OF ANTICOAGULANT 08/24/2017 REAGAN MCNEILL [...] MD Ot I25.110 ATHSCL HEART DISEASE OF [place] COR ART W 08/26/2017 REAGAN MCNEILL MD Ot I77. 1 STRICTURE OF ARTERY 08/26/2017 REAGAN MCNEILL MD Ot J45.909 UNSPECIFIED ASTHMA, UNCOMPLICATED 08/26/2017 REAGAN MCNEILL MD Ot R82. 90 UNSPECIFIED ABNORMAL FINDINGS IN URINE 08/26/2017 REAGAN MCNEILL MD Ot Z68. 43 BODY MASS INDEX (BMI) 50-59.9 , ADULT 08/26/2017 REAGAN MCNEILL MD Ot Z79. 01 LONGTERM (CURRENT) USE OF ANTICOAGULANT 08/26/2017 REAGAN MCNEILL MD Ot Z86.711 PERSONAL HISTORY OF PULMONARY EMBOLISM 08/26/2017 REAGAN MCNEILL MD Ot Z86.718 PERSONAL HISTORY OF OTHER VENOUS THROMBO 08/28/2017 MICHAEL WAGNER Ot I10 ESSENTIAL (PRIMARY) HYPERTENSION 08/28/2017 MICHAEL WAGNER Ot I25.10 ATHSCL HEART DISEASE OF [place] CORONARY 08/28/2017 MICHAEL WAGNER Ot R06.09 OTHER [...] MD Ot I25.110 ATHSCL HEART DISEASE OF [place] COR ART W 08/31/2017 REAGAN MCNEILL MD Ot I77. 1 STRICTURE OF ARTERY 08/31/2017 REAGAN MCNEILL MD Ot J45.909 UNSPECIFIED ASTHMA, UNCOMPLICATED 08/31/2017 REAGAN MCNEILL MD Ot R82. 90 UNSPECIFIED ABNORMAL FINDINGS IN URINE 08/31/2017 REAGAN MCNEILL MD Ot Z68. 43 BODY MASS INDEX (BMI) 50-59.9 , ADULT 08/31/2017 REAGAN MCNEILL MD Ot Z79. 01 LONGTERM (CURRENT) USE OF ANTICOAGULANT 08/31/2017 REAGAN MCNEILL MD Ot Z86.711 PERSONAL HISTORY OF PULMONARY EMBOLISM 08/31/2017 REAGAN MCNEILL MD, Ot Z86.718 PERSONAL HISTORY OF OTHER VENOUS THROMBO 09/04/2017 MICHAEL WAGNER Ot I10 ESSENTIAL (PRIMARY) HYPERTENSION 09/04/2017 MICHAEL WAGNER Ot I25.10 ATHSCL HEART DISEASE OF [place] CORONARY 09/04/2017 MICHAEL WAGNER Ot R06.09 OTHER [...] DOVIANNEY Ot I25.10 ATHSCL HEART DISEASE OF [place] CORONARY 09/05/2017 VAINNEY SMITH DO Ot I73.9 PERIPHERAL VASCULAR DISEASE, UNSPECIFIED 09/05/2017 [place] VIANNEY MOYA Ot J44.9 CHRONIC OBSTRUCTIVE PULMONARY DISEASE, U 09/05/2017 BARNIDGVIANNEY Yusuf DO Ot J45.909 UNSPECIFIED ASTHMA, UNCOMPLICATED 09/05/2017 [place] DOVIANNEY Ot K21.9 GASTRO-ESOPHAGEAL REFLUX DISEASE WITHOUT 09/05/2017 BARNIAAMIRE VIANNEY OMYA Ot N39.0 URINARY TRACT INFECTION, SITE NOT SPECIF 09/05/2017 PAWELARCHANAVIANNEY POLLACK DO Ot R07.89 OTHER CHEST PAIN 09/05/2017 [place] DOVIANNEY Ot R60.0 LOCALIZED EDEMA 09/05/2017 BARNIVIANNEY POLLACK DO Ot Z68.43 BODY MASS INDEX (BMI) 50-59.9 , ADULT 09/05/2017 [place] DOVIANNEY Ot Z79.01 CONSULTING SOFTWARE ENGINEER (CURRENT) USE OF ANTICOAGULANT 09/05/2017 VIANNEY SMITH DO Ot Z79.02 LONGTERM (CURRENT) USE OF ANTITHROMBOTI 09/05/2017 PAWELNIRANJEET DOVIANNEY Ot Z79.82 CONSULTING SOFTWARE ENGINEER (CURRENT) USE OF ASPIRIN 09/05/2017 VIANNEY SMITH DO Ot Z79.899 OTHER LONGTERM (CURRENT) DRUG THERAPY 09/05/2017 VIANNEY SMITH DO [...] SMITH DO Ot Z88.8 ALLERGY STATUS TO [facility] DRUG/MEDS/BIOL SUB 09/05/2017 VIANNEY SMITH DO Ot [...] DO Ot I25.10 ATHSCL HEART DISEASE OF [place] CORONARY 09/05/2017 VIANNEY SMITH DO Ot I73.9 PERIPHERAL VASCULAR DISEASE, UNSPECIFIED 09/05/2017 VIANNEY SMITH DO, Ot J44.9 CHRONIC OBSTRUCTIVE PULMONARY DISEASE, U 09/05/2017 VIANNEY SMITH DO, Ot J45.909 UNSPECIFIED ASTHMA, UNCOMPLICATED 09/05/2017 VIANNEY SMITH DO Ot K21.9 GASTRO-ESOPHAGEAL REFLUX DISEASE WITHOUT 09/05/2017 VIANNEY SMITH DO Ot N39.0 URINARY TRACT INFECTION, SITE NOT SPECIF 09/05/2017 [facility]NEY MOYA Ot R07.89 OTHER CHEST PAIN 09/05/2017 ANDREAVIANNEY Yusuf DO Ot R60.0 LOCALIZED EDEMA 09/05/2017 ANDREAVIANNEY Yusuf DO Ot Z68.43 BODY MASS INDEX (BMI) 50-59.9 , ADULT 09/05/2017 VIANNEY SMITH DO Ot Z79.01 CONSULTING SOFTWARE ENGINEER (CURRENT) USE OF ANTICOAGULANT 09/05/2017 [facility] MO[facility] Ot Z79.02 LONGTERM (CURRENT) USE OF ANTITHROMBOTI 09/05/2017 [facility] Yusuf DO Ot Z79.82 CONSULTING SOFTWARE ENGINEER (CURRENT) USE OF ASPIRIN 09/05/2017 ANDREAVIANNEY Yusuf DO Ot Z79.899 OTHER LONGTERM (CURRENT) DRUG THERAPY 09/05/2017 [facility] Ot Z82.49 FAMILY HX OF ISCHEM HEART DIS AND OTH DI 09/05/2017 ANDREAVIANNEY Yusuf DO Ot Z85.038 PERSONAL HISTORY OF MALIGNANT NEOPLASM O 09/05/2017 ANDREAVIANNEY Yusuf DO Ot Z86.711 PERSONAL HISTORY OF PULMONARY EMBOLISM 09/05/2017 [facility] Yusuf DO Ot Z86.718 PERSONAL HISTORY OF OTHER VENOUS THROMBO 09/05/2017 VIANNEY SMITH DO Ot Z87.01 PERSONAL HISTORY OF PNEUMONIA (RECURRENT 09/05/2017 VIANNEY SMITH DO Ot Z88.0 ALLERGY STATUS TO PENICILLIN 09/05/2017 [facility] Ot Z88.8 ALLERGY STATUS TO [facility] DRUG/MEDS/BIOL SUB 09/05/2017 VIANNEY SMITH DO Ot Z91.048 OTHER NONMEDICINAL SUBSTANCE ALLERGY STA 09/05/2017 [facility] Yusuf DO Ot Z95.5 PRESENCE OF CORONARY ANGIOPLASTY IMPLANT 09/27/2017 CHARITO NAM, REAGAN Balderas Ot Z51. 81 ENCOUNTER FOR THERAPEUTIC DRUG LEVEL MON 09/27/2017 REAGAN MCNEILL MD Ot Z79. 01 LONGTERM (CURRENT) USE OF ANTICOAGULANT 09/27/2017 REAGAN MCNEILL MD Ot Z86.711 PERSONAL HISTORY OF PULMONARY EMBOLISM 01/04/2018 REAGAN MCNEILL MD Ot E03. 9 HYPOTHYROIDISM, UNSPECIFIED 01/04/2018 REAGAN MCNEILL MD Ot E66. 9 OBESITY, UNSPECIFIED 01/04/2018 REAGAN MCNEILL MD Ot E78. 5 HYPERLIPIDEMIA, UNSPECIFIED 01/04/2018 REAGAN MCNEILL MD Ot I10 ESSENTIAL (PRIMARY) HYPERTENSION 01/04/2018 REAGAN MCNEILL MD Ot I25.110 ATHSCL HEART DISEASE OF [place] COR ART W 01/04/2018 REAGAN MCNEILL MD Ot I77. 1 STRICTURE OF ARTERY 01/04/2018 REAGAN MCNEILL MD Ot J45.909 UNSPECIFIED ASTHMA, UNCOMPLICATED 01/04/2018 REAGAN MCNEILL MD Ot R82. 90 UNSPECIFIED ABNORMAL FINDINGS IN URINE 01/04/2018 REAGAN MCNEILL MD Ot Z68. 43 BODY MASS INDEX (BMI) 50-59.9 , ADULT 01/04/2018 REAGAN MCNEILL MD Ot Z79. 01 LONGTERM (CURRENT) USE OF ANTICOAGULANT 01/04/2018 REAGAN MCNEILL [...] MD Ot I25.110 ATHSCL HEART DISEASE OF [place] COR ART W 04/16/2018 REAGAN MCNEILL MD Ot I77. 1 STRICTURE OF ARTERY 04/16/2018 REAGAN MCNEILL MD Ot J45.909 UNSPECIFIED ASTHMA, UNCOMPLICATED 04/16/2018 REAGAN MCNEILL MD Ot R82. 90 UNSPECIFIED ABNORMAL FINDINGS IN URINE 04/16/2018 REAGAN MCNEILL MD Ot Z68. 43 BODY MASS INDEX (BMI) 50-59.9 , ADULT 04/16/2018 REAGAN MCNEILL MD, Ot Z79. 01 CONSULTING SOFTWARE ENGINEER (CURRENT) USE OF ANTICOAGULANT 04/16/2018 REAGAN MCNEILL [...] Ot I25. 10 ATHSCL HEART DISEASE OF [place] CORONARY 07/09/2018 DEWEY PURDY MD Ot I73. 9 PERIPHERAL VASCULAR DISEASE, UNSPECIFIED 07/09/2018 DEWEY PURDY MD Ot J44. 9 CHRONIC OBSTRUCTIVE PULMONARY DISEASE, U 07/09/2018 DEWEY PURDY MD Ot R55 SYNCOPE AND COLLAPSE 07/09/2018 DEWEY PURDY MD Ot Z79. 01 LONGTERM (CURRENT) USE OF ANTICOAGULANT 07/09/2018 DEWEY PURDY MD Ot Z79. 02 LONGTERM (CURRENT) USE OF ANTITHROMBOTI 07/09/2018 DEWEY PURDY MD Ot Z79. 51 CONSULTING SOFTWARE ENGINEER (CURRENT) USE OF INHALED STERO 07/09/2018 DEWEY PURDY MD Ot Z79. 82 CONSULTING SOFTWARE ENGINEER (CURRENT) USE OF ASPIRIN 07/09/2018 DEWEY PURDY [...] MOYA Ot V74.8 SCREEN-BACTERIAL DIS NEC 07/09/2018 CAYDEN CHAS MOYA Ot 789.03 ABDOMINAL PAIN, [...] HISTORY OF COLONIC POLYPS 07/09/2018 PAYAL VIGIL QM NURSE Ot M54.6 PAIN IN THORACIC SPINE 07/09/2018 KAVYA PATRICK QM NURSE Ot E66.01 MORBID (SEVERE) OBESITY DUE TO EXCESS CA 07/09/2018 KAVYA PATRICK QM NURSE Ot R10.84 GENERALIZED ABDOMINAL PAIN 07/09/2018 KAVYA PATRICK QM NURSE Ot Z68.43 BODY MASS INDEX (BMI) 50-59.9 , ADULT 07/09/2018 REAGAN MCNEILL MD, Ot Z51. 81 ENCOUNTER FOR THERAPEUTIC DRUG LEVEL MON 07/09/2018 REAGAN MCNEILL MD, Ot Z79. 01 CONSULTING SOFTWARE ENGINEER (CURRENT) USE OF ANTICOAGULANT 07/09/2018 REAGAN MCNEILL MD, Ot Z86.711 PERSONAL HISTORY OF PULMONARY EMBOLISM 07/09/2018 PAYAL VIGIL QM NURSE Ot M54.2 CERVICALGIA 07/09/2018 PAYAL VIGIL QM NURSE Ot Z53.29 PROC/TRTMT NOT CRD OUT BEC PT DECISION F 07/09/2018 PAYAL VIGIL QM NURSE Ot J98.11 ATELECTASIS 07/09/2018 PAYAL VIGIL QM NURSE Ot Z87.442 PERSONAL HISTORY OF URINARY CALCULI 07/09/2018 MICHAEL WAGNER Ot I10 ESSENTIAL (PRIMARY) HYPERTENSION 07/09/2018 MICHAEL WAGNER Ot I25.10 ATHSCL HEART DISEASE OF [place] CORONARY 07/09/2018 MICHAEL WAGNER Ot R06.09 OTHER FORMS OF DYSPNEA 07/09/2018 MICHAEL WAGNER Ot R07.89 OTHER CHEST PAIN 07/09/2018 REAGAN MCNEILL MD, Ot Z51. 81 ENCOUNTER FOR THERAPEUTIC DRUG LEVEL MON 07/09/2018 REAGAN MCNEILL MD, Ot Z79. 01 CONSULTING SOFTWARE ENGINEER (CURRENT) USE OF ANTICOAGULANT 07/09/2018 REAGAN MCNEILL MD, Ot Z86.711 PERSONAL HISTORY OF PULMONARY EMBOLISM 07/26/2018 REAGAN MCNEILL MD Ot Z51. 81 ENCOUNTER FOR THERAPEUTIC DRUG LEVEL MON 07/26/2018 REAGAN MCNEILL MD Ot Z79. 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 81 ENCOUNTER FOR THERAPEUTIC DRUG LEVEL MON 07/26/2018 REAGAN MCNEILL MD Ot Z79. 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 81 ENCOUNTER FOR THERAPEUTIC DRUG LEVEL MON 07/26/2018 REAGAN MCNEILL MD Ot Z79. 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 81 ENCOUNTER FOR THERAPEUTIC DRUG LEVEL MON 07/26/2018 REAGAN MCNEILL MD Ot Z79. 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 81 ENCOUNTER FOR THERAPEUTIC DRUG LEVEL MON 07/27/2018 REAGAN MCNEILL MD Ot Z79. 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 81 ENCOUNTER FOR THERAPEUTIC DRUG LEVEL MON 07/27/2018 REAGAN MCNEILL MD Ot Z79. 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 07/27/2018 AMANDEEP HAMMOND MD Ot E03.9 HYPOTHYROIDISM, UNSPECIFIED 07/27/2018 AMANDEEP HAMMOND MD, Ot E78.0 0 PURE HYPERCHOLESTEROLEMIA, UNSPECIFIED 07/27/2018 AMANDEEP HAMMOND MD, Ot G43.9 09 MIGRAINE, UNSP, NOT INTRACTABLE, WITHOUT 07/27/2018 AMANDEEP HAMMOND MD, Ot I25.1 0 ATHSCL HEART DISEASE OF [place] CORONARY 07/27/2018 AMANDEEP HAMMOND MD, Ot J45.9 [...] 07/27/2018 AMANDEEP HAMMOND MD, Ot Z79.0 1 LONGTERM (CURRENT) USE OF ANTICOAGULANT 07/27/2018 AMANDEEP HAMMOND MD, Ot Z79.8 2 CONSULTING SOFTWARE ENGINEER (CURRENT) USE OF ASPIRIN 07/27/2018 AMANDEEP HAMMOND [...] Ot I25.1 0 ATHSCL HEART DISEASE OF [place] CORONARY 07/28/2018 AMANDEEP HAMMOND MD, Ot J45.9 [...] 07/28/2018 AMANDEEP HAMMOND MD, Ot Z79.0 1 CONSULTING SOFTWARE ENGINEER (CURRENT) USE OF ANTICOAGULANT 07/28/2018 AMANDEEP HAMMOND MD, Ot Z79.8 2 CONSULTING SOFTWARE ENGINEER (CURRENT) USE OF ASPIRIN 07/28/2018 AMANDEEP HAMMOND [...] Ot Z91.0 30 BEE ALLERGY STATUS 07/28/2018 AMADNEEP HAMMOND MD, Ot Z95.5 PRESENCE OF CORONARY ANGIOPLASTY IMPLANT 08/12/2018 NEVA HU QM NURSE Ot R42 DIZZINESS AND GIDDINESS 08/12/2018 NEVA HU QM NURSE Ot R55 SYNCOPE AND COLLAPSE 08/12/2018 MAYTENEVA QM NURSE Ot R42 DIZZINESS AND GIDDINESS 08/12/2018 NEVA HU QM NURSE Ot R55 SYNCOPE AND COLLAPSE 08/12/2018 NEVA HU QM NURSE Ot R42 DIZZINESS AND GIDDINESS 08/12/2018 NEVA HU QM NURSE Ot R55 SYNCOPE AND COLLAPSE 08/17/2018 NEVA HU QM NURSE Ot R42 DIZZINESS AND GIDDINESS 08/17/2018 NEVA HU QM NURSE Ot R55 SYNCOPE AND COLLAPSE 09/06/2018 NEVA HU QM NURSE Ot R42 DIZZINESS AND GIDDINESS 09/06/2018 NEVA HU QM NURSE Ot R55 SYNCOPE AND COLLAPSE 09/10/2018 NEVA HU QM NURSE Ot R42 DIZZINESS AND GIDDINESS 09/10/2018 NEVA HU QM NURSE Ot R55 SYNCOPE AND COLLAPSE 09/12/2018 DIANA [...] DO, Ot I25.10 ATHSCL HEART DISEASE OF [place] CORONARY 10/05/2018 ALEJANDRA MARTIN DO, Ot J45.909 UNSPECIFIED ASTHMA, UNCOMPLICATED 10/05/2018 ALEJANDRA MARTIN DO, Ot K21.9 GASTRO-ESOPHAGEAL REFLUX DISEASE WITHOUT 10/05/2018 ALEJANDRA MARTIN DO, Ot R07.89 OTHER CHEST PAIN 10/05/2018 ALEJANDRA MARTIN DO, Ot R07.9 CHEST PAIN, UNSPECIFIED 10/05/2018 ALEJANDRA MARTIN DO, Ot Z79.01 CONSULTING SOFTWARE ENGINEER (CURRENT) USE OF ANTICOAGULANT 10/05/2018 ALEJANDRA MARTIN DO, Ot Z79.02 CONSULTING SOFTWARE ENGINEER (CURRENT) USE OF ANTITHROMBOTI 10/05/2018 ALEJANDRA MARTIN DO, Ot Z79.52 CONSULTING SOFTWARE ENGINEER (CURRENT) USE OF SYSTEMIC STER 10/05/2018 ALEJANDRA MARTIN DO, Ot Z79.82 CONSULTING SOFTWARE ENGINEER (CURRENT) USE OF ASPIRIN 10/05/2018 ALEJANDRA MARTIN [...] MARTIN DO, Ot Z88.8 ALLERGY STATUS TO [facility] DRUG/MEDS/BIOL SUB 10/05/2018 ALEJANDRA MARTIN DO, Ot [...] APRN Ot I25.10 ATHSCL HEART DISEASE OF [place] CORONARY 10/07/2018 SHALOM RAMÍREZ APRN Ot I73 .9 PERIPHERAL VASCULAR DISEASE, UNSPECIFIED 10/07/2018 SHALOM RAMÍREZ APRN Ot J44 .9 CHRONIC OBSTRUCTIVE PULMONARY DISEASE, U 10/07/2018 SHALOM RAMÍREZ APRN Ot K21 .9 GASTRO-ESOPHAGEAL REFLUX DISEASE WITHOUT 10/07/2018 SHALOM RAMÍREZ APRN Ot R07 .2 PRECORDIAL PAIN 10/07/2018 SHALOM RAMÍREZ APRN Ot Z68.43 BODY MASS INDEX (BMI) 50-59.9 , ADULT 10/07/2018 SHALOM RAMÍREZ APRN Ot Z79.01 CONSULTING SOFTWARE ENGINEER (CURRENT) USE OF ANTICOAGULANT 10/07/2018 SHALOM RAMÍREZ APRN Ot Z79.02 CONSULTING SOFTWARE ENGINEER (CURRENT) USE OF ANTITHROMBOTI 10/07/2018 SHALOM RAMÍREZ APRN Ot Z79.51 CONSULTING SOFTWARE ENGINEER (CURRENT) USE OF INHALED STERO 10/07/2018 SHALOM RAMÍREZ APRN Ot Z79.82 CONSULTING SOFTWARE ENGINEER (CURRENT) USE OF ASPIRIN 10/07/2018 SHALOM RAMÍREZ [...] DO, Ot I25.10 ATHSCL HEART DISEASE OF [place] CORONARY 10/08/2018 ALEJANDRA MARTIN DO, Ot J45.909 UNSPECIFIED ASTHMA, UNCOMPLICATED 10/08/2018 ALEJANDRA MARTIN DO, Ot K21.9 GASTRO-ESOPHAGEAL REFLUX DISEASE WITHOUT 10/08/2018 ALEJANDRA MARTIN DO, Ot R07.89 OTHER CHEST PAIN 10/08/2018 ALEJANDRA MARTIN DO, Ot R07.9 CHEST PAIN, UNSPECIFIED 10/08/2018 ALEJANDRA MARTIN DO, Ot Z79.01 CONSULTING SOFTWARE ENGINEER (CURRENT) USE OF ANTICOAGULANT 10/08/2018 ALEJANDRA MARTIN DO, Ot Z79.02 LONGTERM (CURRENT) USE OF ANTITHROMBOTI 10/08/2018 ALEJANDRA MARTIN DO, Ot Z79.52 LONGTERM (CURRENT) USE OF SYSTEMIC STER 10/08/2018 ALEJANDRA MARTIN DO, Ot Z79.82 LONGTERM (CURRENT) USE OF ASPIRIN 10/08/2018 ALEJANDRA MARTIN [...] DO, Ot I25.10 ATHSCL HEART DISEASE OF [place] CORONARY 10/11/2018 ALEJANDRA MARTIN DO, Ot J45.909 UNSPECIFIED ASTHMA, UNCOMPLICATED 10/11/2018 ALEJANDRA MARTIN DO, Ot K21.9 GASTRO-ESOPHAGEAL REFLUX DISEASE WITHOUT 10/11/2018 ALEJANDRA MARTIN DO, Ot R07.89 OTHER CHEST PAIN 10/11/2018 ALEJANDRA MARTIN DO, Ot R07.9 CHEST PAIN, UNSPECIFIED 10/11/2018 ALEJANDRA MARTIN DO, Ot Z79.01 CONSULTING SOFTWARE ENGINEER (CURRENT) USE OF ANTICOAGULANT 10/11/2018 ALEJANDRA MARTIN DO, Ot Z79.02 LONGTERM (CURRENT) USE OF ANTITHROMBOTI 10/11/2018 ALEJANDRA MARTIN DO, Ot Z79.52 CONSULTING SOFTWARE ENGINEER (CURRENT) USE OF SYSTEMIC STER 10/11/2018 ALEJANDRA MARTIN DO, Ot Z79.82 LONGTERM (CURRENT) USE OF ASPIRIN 10/11/2018 ALEJANDRA MARTIN [...] MARTIN DO, Ot Z88.8 ALLERGY STATUS TO [facility] DRUG/MEDS/BIOL SUB 10/11/2018 ALEJANDRA MARTIN DO, Ot [...] 11/05/2018 REAGAN MCNEILL MD Ot Z79. 01 LONGTERM (CURRENT) USE OF ANTICOAGULANT 11/05/2018 REAGAN MCNEILL MD Ot Z86.711 PERSONAL HISTORY OF PULMONARY EMBOLISM 11/05/2018 REAGAN MCNEILL MD Ot Z51. 81 ENCOUNTER FOR THERAPEUTIC DRUG LEVEL MON 11/05/2018 REAGAN MCNEILL MD Ot Z79. 01 LONGTERM (CURRENT) USE OF ANTICOAGULANT 11/05/2018 REAGAN MCNEILL MD, Ot Z86.711 PERSONAL HISTORY OF PULMONARY EMBOLISM 11/05/2018 NORIS DOHERTY DO Ot E03.9 HYPOTHYROIDISM, UNSPECIFIED 11/05/2018 NORIS DOHERTY DO Ot E78.00 PURE HYPERCHOLESTEROLEMIA, UNSPECIFIED 11/05/2018 NORIS DOHERTY DO Ot G43.909 MIGRAINE, UNSP, NOT INTRACTABLE, WITHOUT 11/05/2018 NORIS DOHERTY DO Ot G47.30 SLEEP APNEA, UNSPECIFIED 11/05/2018 NORIS DOHERTY DO Ot I25.10 ATHSCL HEART DISEASE OF [place] CORONARY 11/05/2018 NORIS DOHERTY DO, Ot J45.909 UNSPECIFIED ASTHMA, UNCOMPLICATED 11/05/2018 NORIS DOHERTY DO Ot K21.9 GASTRO-ESOPHAGEAL REFLUX DISEASE WITHOUT 11/05/2018 NORIS DOHERTY DO Ot K62.5 HEMORRHAGE OF ANUS AND RECTUM 11/05/2018 NORIS DOHERTY DO Ot N39.0 URINARY TRACT INFECTION, SITE NOT SPECIF 11/05/2018 NORIS DOHERTY DO Ot R11.2 NAUSEA WITH VOMITING, UNSPECIFIED 11/05/2018 NORIS DOHERTY DO Ot Z79.01 CONSULTING SOFTWARE ENGINEER (CURRENT) USE OF ANTICOAGULANT 11/05/2018 NORIS DOHERTY DO Ot Z79.02 CONSULTING SOFTWARE ENGINEER (CURRENT) USE OF ANTITHROMBOTI 11/05/2018 NORIS DOHERTY DO Ot Z79.82 LONGTERM (CURRENT) USE OF ASPIRIN 11/05/2018 NORIS DOHERTY [...] MOYA Ot G47.30 SLEEP APNEA, UNSPECIFIED 11/08/2018 [place] NORIS MOYA Ot I25.10 ATHSCL HEART DISEASE OF [place] CORONARY 11/08/2018 NORIS DOHERTY DO Ot J45.909 UNSPECIFIED ASTHMA, UNCOMPLICATED 11/08/2018 BESSY NORIS MOYA Ot K21.9 GASTRO-ESOPHAGEAL REFLUX DISEASE WITHOUT 11/08/2018 NORIS DOHERTY DO Ot K62.5 HEMORRHAGE OF ANUS AND RECTUM 11/08/2018 BESSY NORIS MOYA Ot N39.0 URINARY TRACT INFECTION, SITE NOT SPECIF 11/08/2018 BESSY NORIS MOYA Ot R11.2 NAUSEA WITH VOMITING, UNSPECIFIED 11/08/2018 NORIS DOHERTY DO Ot Z79.01 LONGTERM (CURRENT) USE OF ANTICOAGULANT 11/08/2018 NORIS DOHERTY DO Ot Z79.02 CONSULTING SOFTWARE ENGINEER (CURRENT) USE OF ANTITHROMBOTI 11/08/2018 NORIS DOHERTY DO Ot Z79.82 CONSULTING SOFTWARE ENGINEER (CURRENT) USE OF ASPIRIN 11/08/2018 BESSY NORIS [...] APRN Ot I25.10 ATHSCL HEART DISEASE OF [place] CORONARY 11/13/2018 SHALOM RAMÍREZ APRN Ot J45.909 UNSPECIFIED ASTHMA, UNCOMPLICATED 11/13/2018 SHALOM RAMÍREZ APRN Ot K21 .9 GASTRO-ESOPHAGEAL REFLUX DISEASE WITHOUT 11/13/2018 SHALOM RAMÍREZ APRN Ot N39 .0 URINARY TRACT INFECTION, SITE NOT SPECIF 11/13/2018 SHALOM RAMÍREZ APRN Ot R30 .0 DYSURIA 11/13/2018 SHALOM RAMÍREZ APRN Ot Z79.01 LONGTERM (CURRENT) USE OF ANTICOAGULANT 11/13/2018 SHALOM RAMÍREZ APRN Ot Z79.02 CONSULTING SOFTWARE ENGINEER (CURRENT) USE OF ANTITHROMBOTI 11/13/2018 SHALOM RAMÍREZ APRN Ot Z79.82 LONGTERM (CURRENT) USE OF ASPIRIN 11/13/2018 SHALOM RAMÍREZ APRN Ot Z80 .0 FAMILY HISTORY OF MALIGNANT NEOPLASM OF 11/13/2018 SHAOLM RAMÍREZ APRN Ot Z82.49 FAMILY HX OF [...] TO OT DRUG/MEDS/BIOL SUB 11/13/2018 SHALOM RAMÍREZ QM NURSE Ot Z90.49 ACQUIRED ABSENCE OF OTHER SPECIFIED PART 11/13/2018 SHALOM RAMÍREZ QM NURSE Ot Z90.710 ACQUIRED ABSENCE OF BOTH CERVIX AND UTER 11/13/2018 SHALOM RAMÍREZ QM NURSE Ot Z95 .5 PRESENCE OF CORONARY ANGIOPLASTY [...] OBESITY DUE TO EXCESS CA 11/13/2018 KAVYA PATRIKC APRN Ot R10.84 GENERALIZED ABDOMINAL PAIN 11/13/2018 KAVYA PATRICK APRN Ot Z68.43 BODY MASS INDEX (BMI) 50-59.9 , ADULT 11/13/2018 REAGAN MCNEILL MD Ot Z51. 81 ENCOUNTER FOR THERAPEUTIC DRUG LEVEL MON 11/13/2018 REAGAN MCNEILL MD Ot Z79. 01 CONSULTING SOFTWARE ENGINEER (CURRENT) USE OF ANTICOAGULANT 11/13/2018 REAGAN MCNEILL [...] WAGNER Ot I25.10 ATHSCL HEART DISEASE OF [place] CORONARY 11/13/2018 MICHAEL WAGNER Ot R06.09 OTHER FORMS OF DYSPNEA 11/13/2018 MICHAEL WAGNER Ot R07.89 OTHER CHEST PAIN 11/13/2018 REAGAN MCNEILL MD, Ot Z51. 81 ENCOUNTER FOR THERAPEUTIC DRUG LEVEL MON 11/13/2018 REAGAN MCNEILL MD, Ot Z79. 01 LONGTERM (CURRENT) USE OF ANTICOAGULANT 11/13/2018 REAGAN MCNEILL MD, Ot Z86.711 PERSONAL HISTORY OF PULMONARY EMBOLISM 11/13/2018 NEVA HU QM NURSE Ot R42 DIZZINESS AND GIDDINESS 11/13/2018 NEVA HU APRN Ot R55 SYNCOPE AND COLLAPSE 11/13/2018 DIANA HUP Ot M79.671 PAIN IN RIGHT FOOT 11/13/2018 DIANA HU REGISTRY NURSE Ot Z87.828 PERSONAL HISTORY OF OTH (HEALED) [...] APRN Ot I25.10 ATHSCL HEART DISEASE OF [place] CORONARY 11/19/2018 SHALOM RAMÍREZ APRN Ot J45.909 UNSPECIFIED ASTHMA, UNCOMPLICATED 11/19/2018 SHALOM RAMÍREZ APRN Ot K21 .9 GASTRO-ESOPHAGEAL REFLUX DISEASE WITHOUT 11/19/2018 SHALOM RAMÍREZ APRN Ot N39 .0 URINARY TRACT INFECTION, SITE NOT SPECIF 11/19/2018 SHALOM RAMÍREZ APRN Ot R30 .0 DYSURIA 11/19/2018 SHALOM RAMÍREZ APRN Ot Z79.01 LONGTERM (CURRENT) USE OF ANTICOAGULANT 11/19/2018 SHALOM RAMÍREZ APRN Ot Z79.02 CONSULTING SOFTWARE ENGINEER (CURRENT) USE OF ANTITHROMBOTI 11/19/2018 SHALOM RAMÍREZ APRN Ot Z79.82 CONSULTING SOFTWARE ENGINEER (CURRENT) USE OF ASPIRIN 11/19/2018 SHALOM RAMÍREZ [...] APRN Ot I25.10 ATHSCL HEART DISEASE OF [place] CORONARY 11/19/2018 SHALOM RAMÍREZ APRN Ot J45.909 UNSPECIFIED ASTHMA, UNCOMPLICATED 11/19/2018 SHALOM RAMÍREZ APRN Ot K21 .9 GASTRO-ESOPHAGEAL REFLUX DISEASE WITHOUT 11/19/2018 SHALOM RAMÍREZ APRN Ot N39 .0 URINARY TRACT INFECTION, SITE NOT SPECIF 11/19/2018 SHALOM RAMÍREZ APRN Ot R30 .0 DYSURIA 11/19/2018 SHALOM RAMÍREZ APRN Ot Z79.01 LONGTERM (CURRENT) USE OF ANTICOAGULANT 11/19/2018 SHALOM RAMÍREZ APRN Ot Z79.02 CONSULTING SOFTWARE ENGINEER (CURRENT) USE OF ANTITHROMBOTI 11/19/2018 SHALOM RAMÍREZ APRN Ot Z79.82 CONSULTING SOFTWARE ENGINEER (CURRENT) USE OF ASPIRIN 11/19/2018 SHALOM RAMÍREZ [...] 10 UPPER ABDOMINAL PAIN, UNSPECIFIED 11/20/2018 BALDEV LITTLEJOHN DO Ot Z01.818 ENCOUNTER FOR [...] HYPOTHYROIDISM, UNSPECIFIED 11/20/2018 [facility] DI[facility] DO Ot Z86.010 PERSONAL HISTORY [...] 11/20/2018 REAGAN MCNEILL MD, Ot Z79. 01 LONGTERM (CURRENT) USE OF ANTICOAGULANT 11/20/2018 REAGAN MCNEILL [...] WAGNER Ot I25.10 ATHSCL HEART DISEASE OF [place] CORONARY 11/20/2018 MICHAEL WAGNER Ot R06.09 OTHER FORMS OF DYSPNEA 11/20/2018 MICHAEL WAGNER Ot R07.89 OTHER CHEST PAIN 11/20/2018 REAGAN MCNEILL MD Ot Z51. 81 ENCOUNTER FOR THERAPEUTIC DRUG LEVEL MON 11/20/2018 REAGAN MCNEILL MD Ot Z79. 01 CONSULTING SOFTWARE ENGINEER (CURRENT) USE OF ANTICOAGULANT 11/20/2018 REAGAN MCNEILL MD Ot Z86.711 PERSONAL HISTORY OF PULMONARY EMBOLISM 11/20/2018 NEVA HU QM NURSE Ot R42 DIZZINESS AND GIDDINESS 11/20/2018 NEVA HU QM NURSE Ot R55 SYNCOPE AND COLLAPSE 11/20/2018 DIANA [...] DO Ot 626.8 MENSTRUAL DISORDER NEC 12/15/2018 CHAS RODARTE DO Ot 627.1 POSTMENOPAUSAL BLEEDING 12/15/2018 [...] HISTORY OF COLONIC POLYPS 12/15/2018 PAYAL VIGIL QM NURSE Ot M54.6 PAIN IN THORACIC SPINE 12/15/2018 KAVYA PATRICK QM NURSE Ot E66.01 MORBID (SEVERE) OBESITY DUE TO EXCESS CA 12/15/2018 KAVYA PATRICK APRN Ot R10.84 GENERALIZED ABDOMINAL PAIN 12/15/2018 KAVYA PATRICK QM NURSE Ot Z68.43 BODY MASS INDEX (BMI) 50-59.9 , ADULT 12/15/2018 CHARITO NAM, REAGAN Balderas Ot Z51. 81 ENCOUNTER FOR THERAPEUTIC DRUG LEVEL MON 12/15/2018 REAGAN MCNEILL MD Ot Z79. 01 LONGTERM (CURRENT) USE OF ANTICOAGULANT 12/15/2018 REAGAN MCNEILL [...] WAGNER Ot I25.10 ATHSCL HEART DISEASE OF [place] CORONARY 12/15/2018 MICHAEL WAGNER Ot R06.09 OTHER FORMS OF DYSPNEA 12/15/2018 MICHAEL WAGNER Ot R07.89 OTHER CHEST PAIN 12/15/2018 REAGAN MCNEILL MD Ot Z51. 81 ENCOUNTER FOR THERAPEUTIC DRUG LEVEL MON 12/15/2018 REAGAN MCNEILL MD, Ot Z79. 01 CONSULTING SOFTWARE ENGINEER (CURRENT) USE OF ANTICOAGULANT 12/15/2018 REAGAN MCNEILL MD, Ot Z86.711 PERSONAL HISTORY OF PULMONARY EMBOLISM 12/15/2018 NEVA HU APRN Ot R42 DIZZINESS AND GIDDINESS 12/15/2018 NEVA HU APRN Ot R55 SYNCOPE AND COLLAPSE 12/15/2018 DIANA HU Ot M79.671 PAIN IN RIGHT FOOT 12/15/2018 DIANA HU Ot Z87.828 PERSONAL HISTORY OF OTH (HEALED) PHYSICA 12/17/2018 NEVA HU QM NURSE Ot K31.89 OTHER DISEASES OF STOMACH AND DUODENUM 12/17/2018 NEVA HU APRN Ot K57.30 DVRTCLOS OF LG INT W/O PERFORATION OR AB 12/17/2018 NEVA HU QM NURSE Ot R31 .9 HEMATURIA, UNSPECIFIED 12/17/2018 NEVA HU QM NURSE Ot T18.9XXA FOREIGN BODY OF ALIMENTARY TRACT, PART U 01/03/2019 NEVA HU QM NURSE Ot K31.89 OTHER DISEASES OF STOMACH AND DUODENUM 01/03/2019 NEVA HU QM NURSE Ot K57.30 DVRTCLOS OF LG INT W/O PERFORATION OR AB 01/03/2019 NEVA HU QM NURSE Ot R31 .9 HEMATURIA, UNSPECIFIED 01/03/2019 NEVA HU QM NURSE Ot T18.9XXA FOREIGN BODY OF ALIMENTARY TRACT, PART U 01/31/2019 ROSINA VICENTE Ot E03.9 HYPOTHYROIDISM, UNSPECIFIED 01/31/2019 ROSINA VICENTE Ot E78.00 PURE HYPERCHOLESTEROLEMIA, UNSPECIFIED 01/31/2019 BRODY VICENTEIS Ot G43.909 MIGRAINE, UNSP, NOT INTRACTABLE, WITHOUT 01/31/2019 BRODY VICENTEIS Ot G47.30 SLEEP APNEA, UNSPECIFIED 01/31/2019 ROSINA VICENTE Ot I25.10 ATHSCL HEART DISEASE OF [place] CORONARY 01/31/2019 ROSINA VICENTE Ot J45.909 UNSPECIFIED ASTHMA, UNCOMPLICATED 01/31/2019 ROSINA VICENTE Ot K21.9 GASTRO-ESOPHAGEAL REFLUX DISEASE WITHOUT 01/31/2019 BRODY VICENTEIS Ot M25.432 EFFUSION, LEFT WRIST 01/31/2019 BRODY VICENTEIS Ot M79.89 OTHER SPECIFIED SOFT TISSUE DISORDERS 01/31/2019 ROSINA VICENTE Ot R07.9 CHEST PAIN, UNSPECIFIED 01/31/2019 ROSINA VICENTE Ot Z79.01 CONSULTING SOFTWARE ENGINEER (CURRENT) USE OF ANTICOAGULANT 01/31/2019 ROSINA VICENTE Ot Z79.02 CONSULTING SOFTWARE ENGINEER (CURRENT) USE OF ANTITHROMBOTI 01/31/2019 ROSINA VICENTE Ot Z79.82 CONSULTING SOFTWARE ENGINEER (CURRENT) USE OF ASPIRIN 01/31/2019 BRODY VICENTEIS Ot Z80.0 FAMILY HISTORY OF MALIGNANT NEOPLASM OF 01/31/2019 ROSINA VICNETE Ot Z82.49 FAMILY HX OF ISCHEM HEART [...] VICENTE Ot I25.10 ATHSCL HEART DISEASE OF [place] CORONARY 02/02/2019 ROSINA VICENTE Ot J45.909 UNSPECIFIED ASTHMA, UNCOMPLICATED 02/02/2019 ROSINA VICENTE Ot K21.9 GASTRO-ESOPHAGEAL REFLUX DISEASE WITHOUT 02/02/2019 ROSINA VICENTE Ot M25.432 EFFUSION, LEFT WRIST 02/02/2019 ROSINA VICENTE Ot M79.89 OTHER SPECIFIED SOFT TISSUE DISORDERS 02/02/2019 ROSINA VICENTE Ot R07.9 CHEST PAIN, UNSPECIFIED 02/02/2019 ROSINA VICENTE Ot Z79.01 LONGTERM (CURRENT) USE OF ANTICOAGULANT 02/02/2019 ROSINA VICENTE Ot Z79.02 CONSULTING SOFTWARE ENGINEER (CURRENT) USE OF ANTITHROMBOTI 02/02/2019 ROSINA VICENTE Ot Z79.82 LONGTERM (CURRENT) USE OF ASPIRIN 02/02/2019 ROSINA VICENTE [...] VICENTE Ot I25.10 ATHSCL HEART DISEASE OF [place] CORONARY 02/06/2019 ROSINA VICENTE Ot J45.909 UNSPECIFIED ASTHMA, UNCOMPLICATED 02/06/2019 ROSINA VICENTE Ot K21.9 GASTRO-ESOPHAGEAL REFLUX DISEASE WITHOUT 02/06/2019 ROSINA VICENTE Ot M25.432 EFFUSION, LEFT WRIST 02/06/2019 ROSINA VICENTE Ot M79.89 OTHER SPECIFIED SOFT TISSUE DISORDERS 02/06/2019 ROSINA VICENTE Ot R07.9 CHEST PAIN, UNSPECIFIED 02/06/2019 ROSINA VICENTE Ot Z79.01 LONGTERM (CURRENT) USE OF ANTICOAGULANT 02/06/2019 ROSINA VICENTE Ot Z79.02 LONGTERM (CURRENT) USE OF ANTITHROMBOTI 02/06/2019 ROSINA VIECNTE Ot Z79.82 LONGTERM (CURRENT) USE OF ASPIRIN 02/06/2019 ROSINA VICENTE [...] Ot I25. 10 ATHSCL HEART DISEASE OF [place] CORONARY 02/06/2019 MALIKA LY MD, Ot I73. [...] 02/06/2019 MALIKA LY MD, Ot Z79. 01 CONSULTING SOFTWARE ENGINEER (CURRENT) USE OF ANTICOAGULANT 02/06/2019 MALIKA LY MD, Ot Z79. 02 CONSULTING SOFTWARE ENGINEER (CURRENT) USE OF ANTITHROMBOTI 02/06/2019 MALIKA LY MD, Ot Z79. 82 LONGTERM (CURRENT) USE OF ASPIRIN 02/06/2019 MALIKA LY [...] E78. 00 PURE HYPERCHOLESTEROLEMIA, UNSPECIFIED 02/08/2019 MALIKA YL MD, Ot G47. 30 SLEEP APNEA, UNSPECIFIED 02/08/2019 MALIKA LY MD, Ot G62. 9 POLYNEUROPATHY, UNSPECIFIED 02/08/2019 MALIKA LY MD Ot I10 ESSENTIAL (PRIMARY) HYPERTENSION 02/08/2019 MALIKA LY MD, Ot I25. 10 ATHSCL HEART DISEASE OF [place] CORONARY 02/08/2019 MALIKA LY MD, Ot I73. [...] 02/08/2019 MALIKA LY MD, Ot Z79. 01 LONGTERM (CURRENT) USE OF ANTICOAGULANT 02/08/2019 MALIKA LY MD, Ot Z79. 02 LONGTERM (CURRENT) USE OF ANTITHROMBOTI 02/08/2019 MALIKA LY MD, Ot Z79. 82 CONSULTING SOFTWARE ENGINEER (CURRENT) USE OF ASPIRIN 02/08/2019 MALIKA LY [...] G43.909 MIGRAINE, UNSP, NOT INTRACTABLE, WITHOUT 05/30/2019 [facility], KUMAR Will Ot G62.9 POLYNEUROPATHY, UNSPECIFIED 05/30/2019 [facility], KUMAR Will Ot I1 0 ESSENTIAL (PRIMARY) HYPERTENSION 05/30/2019 [facility], KUMAR Will Ot I25.10 ATHSCL HEART DISEASE OF [place] CORONARY 05/30/2019 [facility] , KUMAR Will Ot J06.9 ACUTE UPPER RESPIRATORY INFECTION, UNSPE 05/30/2019 [facility], KUMAR Will Ot J45.909 UNSPECIFIED ASTHMA, UNCOMPLICATED 05/30/2019 [facility], KUMAR Will Ot K21.9 GASTRO-ESOPHAGEAL REFLUX DISEASE WITHOUT 05/30/2019 [facility], KUMAR Will Ot R03.0 ELEVATED BLOOD-PRESSURE READING, W/O JAMES 05/30/2019 [facility], KUMAR Will Ot R07.89 OTHER CHEST PAIN 05/30/2019 [facility], KUMAR Will Ot R73.9 HYPERGLYCEMIA, UNSPECIFIED 05/30/2019 [facility], KUMAR Will Ot Z77.22 CNTCT W AND EXPSR TO ENVIRON TOBACCO SMO 05/30/2019 [facility], KUMAR Will Ot Z79.01 CONSULTING SOFTWARE ENGINEER (CURRENT) USE OF ANTICOAGULANT 05/30/2019 [facility] Z79.02 CONSULTING SOFTWARE ENGINEER (CURRENT) USE OF ANTITHROMBOTI 05/30/2019 [facility] Z79.82 CONSULTING SOFTWARE ENGINEER (CURRENT) USE OF ASPIRIN 05/30/2019 [facility] Z80.0 FAMILY HISTORY OF MALIGNANT NEOPLASM OF 05/30/2019 [facility], KUMAR Will Ot Z82.49 FAMILY HX OF ISCHEM HEART DIS AND OTH DI 05/30/2019 [facility], KUMAR Will Ot Z85.038 PERSONAL HISTORY OF MALIGNANT NEOPLASM O 05/30/2019 [facility] Z86.711 PERSONAL HISTORY OF PULMONARY EMBOLISM 05/30/2019 [facility] Z86.718 PERSONAL HISTORY OF OTHER VENOUS THROMBO 05/30/2019 [facility] Z87.442 PERSONAL HISTORY OF URINARY CALCULI 05/30/2019 [facility] Z88.0 ALLERGY STATUS TO PENICILLIN 05/30/2019 [facility], KUMAR Will Ot Z88.6 ALLERGY STATUS TO ANALGESIC AGENT STATUS 05/30/2019 [facility], KUMAR Will Ot Z88.8 ALLERGY STATUS TO OTH DRUG/MEDS/BIOL SUB 05/30/2019 [facility] Will Ot Z90.49 ACQUIRED ABSENCE OF OTHER SPECIFIED PART 05/30/2019 [facility] Ot Z90.710 ACQUIRED ABSENCE OF BOTH CERVIX AND UTER 05/30/2019 [facility], KUMAR Will Ot Z95.5 PRESENCE OF CORONARY ANGIOPLASTY IMPLANT 05/30/2019 CAYDEN CHAS MOYA Ot 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 05/30/2019 [facility] Ot 625.9 FEM GENITAL SYMPTOMS NOS 05/30/2019 [facility] Ot 626.8 MENSTRUAL DISORDER NEC 05/30/2019 [facility] MOYA Ot 627.1 POSTMENOPAUSAL BLEEDING 05/30/2019 [...] Ot 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 ENDOMETRIAL HYPERPLASIA WITHOUT 05/30/2019 [facility] CHAS MOYA Ot V25.42 IUD SURVEILLANCE 05/30/2019 [facility] MOYA Ot R10.2 PELVIC AND PERINEAL [...] J06.9 ACUTE UPPER RESPIRATORY INFECTION, UNSPE 05/30/2019 [facility] Ot 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 01 CONSULTING SOFTWARE ENGINEER (CURRENT) USE OF ANTICOAGULANT 05/30/2019 REAGAN MCNEILL [...] WAGNER Ot I25.10 ATHSCL HEART DISEASE OF [place] CORONARY 05/30/2019 MICHAEL WAGNER Ot R06.09 OTHER FORMS OF DYSPNEA 05/30/2019 MICHAEL WAGNER Ot R07.89 OTHER CHEST PAIN 05/30/2019 REAGAN MCNEILL MD, Ot Z51. 81 ENCOUNTER FOR THERAPEUTIC DRUG LEVEL MON 05/30/2019 REAGAN MCNEILL MD, Ot Z79. 01 CONSULTING SOFTWARE ENGINEER (CURRENT) USE OF ANTICOAGULANT 05/30/2019 REAGAN MCNEILL MD, Ot Z86.711 PERSONAL HISTORY OF PULMONARY EMBOLISM 05/30/2019 NEVA HU QM NURSE Ot R42 DIZZINESS AND GIDDINESS 05/30/2019 NEVA HU QM NURSE Ot R55 SYNCOPE AND COLLAPSE 05/30/2019 DIANA HU Ot M79.671 PAIN IN RIGHT FOOT 05/30/2019 DIANA HU Ot Z87.828 PERSONAL HISTORY OF OTH (HEALED) PHYSICA 05/30/2019 NEVA HU QM NURSE Ot K31.89 OTHER DISEASES OF STOMACH AND DUODENUM 05/30/2019 NEVA HU QM NURSE Ot K57.30 DVRTCLOS OF LG INT W/O PERFORATION OR AB 05/30/2019 NEVA HU QM NURSE Ot R31 .9 HEMATURIA, UNSPECIFIED 05/30/2019 NEVA HU QM NURSE Ot T18.9XXA FOREIGN BODY OF ALIMENTARY TRACT, [...] Ot 786. 09 RESPIRATORY ABNORM NEC 05/30/2019 [facility]. 3 RECTAL ANAL HEMORRHAGE 05/30/2019 [facility], BALDEV Blank Ot V72. 84 EXAM PRE-OPERATIVE NOS 05/30/2019 [facility] Ot 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 05/30/2019 [facility], CHAS S Ot 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 ENDOMETRIAL HYPERPLASIA WITHOUT 05/30/2019 [facility], CHAS S Ot V25.42 IUD SURVEILLANCE 05/30/[facility] S Ot R10.2 PELVIC AND PERINEAL PAIN 05/30/2019 [facility]10. 2 PELVIC AND PERINEAL PAIN 05/30/2019 [facility], BALDEV Blank Ot R10. 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 81 ENCOUNTER FOR THERAPEUTIC DRUG LEVEL MON 05/30/2019 REAGAN MCNEILL MD, Ot Z79. 01 CONSULTING SOFTWARE ENGINEER (CURRENT) USE OF ANTICOAGULANT 05/30/2019 REAGAN MCNEILL MD, Ot Z86.711 PERSONAL HISTORY OF PULMONARY EMBOLISM 05/30/2019 PAYAL VIGIL APRN Ot M54.2 CERVICALGIA 05/30/2019 PAYAL VIIGL APRN Ot Z53.29 PROC/TRTMT NOT CRD OUT BEC PT DECISION F 05/30/2019 PAYAL VIGIL APRN Ot J98.11 ATELECTASIS 05/30/2019 PAYAL VIGIL APRN Ot Z87.442 PERSONAL HISTORY OF URINARY CALCULI 05/30/2019 MICHAEL WAGNER Ot I10 ESSENTIAL (PRIMARY) HYPERTENSION 05/30/2019 MICHAEL WAGNER Ot I25.10 ATHSCL HEART DISEASE OF [place] CORONARY 05/30/2019 MICHAEL WAGNER Ot R06.09 OTHER FORMS OF DYSPNEA 05/30/2019 MICHAEL WAGNER Ot R07.89 OTHER CHEST PAIN 05/30/2019 REAGAN MCNEILL MD, Ot Z51. 81 ENCOUNTER FOR THERAPEUTIC DRUG LEVEL MON 05/30/2019 REAGAN MCNEILL MD, Ot Z79. 01 LONGTERM (CURRENT) USE OF ANTICOAGULANT 05/30/2019 REAGAN MCNEILL MD, Ot Z86.711 PERSONAL HISTORY OF PULMONARY EMBOLISM 05/30/2019 NEVA HU QM NURSE Ot R42 DIZZINESS AND GIDDINESS 05/30/2019 NEVA HU APRN Ot R55 SYNCOPE AND COLLAPSE 05/30/2019 DIANA HU Ot M79.671 PAIN IN RIGHT FOOT 05/30/2019 DIANA HU Ot Z87.828 PERSONAL HISTORY OF OTH (HEALED) PHYSICA 05/30/2019 NEVA HU QM NURSE Ot K31.89 OTHER DISEASES OF STOMACH AND DUODENUM 05/30/2019 NEVA HU APRN Ot K57.30 DVRTCLOS OF LG INT W/O PERFORATION OR AB 05/30/2019 NEVA HU QM NURSE Ot R31 .9 HEMATURIA, UNSPECIFIED 05/30/2019 NEVA HU QM NURSE Ot T18.9XXA FOREIGN BODY OF ALIMENTARY TRACT, [...] J06.9 ACUTE UPPER RESPIRATORY INFECTION, UNSPE 05/30/2019 [facility] MIGDALIA MOYA Ot 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 Z86.010 PERSONAL HISTORY OF COLONIC POLYPS [...] 05/30/2019 REAGAN MCNEILL MD, Ot Z79. 01 CONSULTING SOFTWARE ENGINEER (CURRENT) USE OF ANTICOAGULANT 05/30/2019 REAGAN MCNEILL [...] WAGNER Ot I25.10 ATHSCL HEART DISEASE OF [place] CORONARY 05/30/2019 MICHAEL WAGNER Ot R06.09 OTHER FORMS OF DYSPNEA 05/30/2019 MICHAEL WAGNER Ot R07.89 OTHER CHEST PAIN 05/30/2019 REAGAN MCNEILL MD, Ot Z51. 81 ENCOUNTER FOR THERAPEUTIC DRUG LEVEL MON 05/30/2019 REAGAN MCNEILL MD, Ot Z79. 01 CONSULTING SOFTWARE ENGINEER (CURRENT) USE OF ANTICOAGULANT 05/30/2019 REAGAN MCNEILL MD Ot Z86.711 PERSONAL HISTORY OF PULMONARY EMBOLISM 05/30/2019 DAVIS HUSUNG Blank QM NURSE Ot R42 DIZZINESS AND GIDDINESS 05/30/2019 NEVA HU QM NURSE Ot R55 SYNCOPE AND COLLAPSE 05/30/2019 DIANA HU Ot M79.671 PAIN IN RIGHT FOOT 05/30/2019 DIANA HU Ot Z87.828 PERSONAL HISTORY OF OTH (HEALED) PHYSICA 05/30/2019 DAVIS HUSUNG Blank QM NURSE Ot K31.89 OTHER DISEASES OF STOMACH AND DUODENUM 05/30/2019 MAYTENEVA QM NURSE Ot K57.30 DVRTCLOS OF LG INT W/O PERFORATION OR AB 05/30/2019 NEVA HU QM NURSE Ot R31 .9 HEMATURIA, UNSPECIFIED 05/30/2019 MAYTENEVA QM NURSE Ot T18.9XXA FOREIGN BODY OF ALIMENTARY TRACT, [...] DO, Ot I25.10 ATHSCL HEART DISEASE OF [place] CORONARY 06/02/2019 KUMAR OCHOA DO, Ot J06.9 ACUTE UPPER RESPIRATORY INFECTION, UNSPE 06/02/2019 KUMAR OCHOA DO, Ot J45.909 UNSPECIFIED ASTHMA, UNCOMPLICATED 06/02/2019 GABRIELA KUMAR MOYA Ot K21.9 GASTRO-ESOPHAGEAL REFLUX DISEASE WITHOUT 06/02/2019 GABRIELA KUMAR MOYA H Ot R03.0 ELEVATED BLOOD-PRESSURE READING, W/O JAMES 06/02/2019 [facility], KUMAR Will Ot R07.89 OTHER CHEST PAIN 06/02/2019 [facility], KUMAR Will Ot R73.9 HYPERGLYCEMIA, UNSPECIFIED 06/02/2019 [facility], KUMAR Will Ot Z77.22 CNTCT W AND EXPSR TO ENVIRON TOBACCO SMO 06/02/2019 [facility], KUMAR Will Ot Z79.01 LONGTERM (CURRENT) USE OF ANTICOAGULANT 06/02/2019 [facility], KUMAR Will Ot Z79.02 LONGTERM (CURRENT) USE OF ANTITHROMBOTI 06/02/2019 [facility], KUMAR Will Ot Z79.82 LONGTERM (CURRENT) USE OF ASPIRIN 06/02/2019 [facility], KUMAR Will Ot Z80.0 FAMILY HISTORY OF MALIGNANT NEOPLASM OF 06/02/2019 [facility], KUMAR Will Ot Z82.49 FAMILY HX OF ISCHEM HEART DIS AND OTH DI 06/02/2019 [facility], KUMAR Will Ot Z85.038 PERSONAL HISTORY OF MALIGNANT NEOPLASM O 06/02/2019 [facility], KUMAR Will Ot Z86.711 PERSONAL HISTORY OF PULMONARY EMBOLISM 06/02/2019 [facility], KUMAR Will Ot Z86.718 PERSONAL HISTORY OF OTHER VENOUS THROMBO 06/02/2019 [facility], KUMAR Will Ot Z87.442 PERSONAL HISTORY OF URINARY CALCULI 06/02/2019 [facility].0 ALLERGY STATUS TO PENICILLIN 06/02/2019 [facility] Z88.6 ALLERGY STATUS TO ANALGESIC AGENT STATUS 06/02/2019 [facility], KUMAR Will Ot Z88.8 ALLERGY STATUS TO OT DRUG/MEDS/BIOL SUB 06/02/2019 [facility] Z90.49 ACQUIRED ABSENCE OF OTHER SPECIFIED PART 06/02/2019 [facility], KUMAR Will Ot Z90.710 ACQUIRED ABSENCE OF BOTH CERVIX AND UTER 06/02/2019 [facility] , KUMAR Will Ot Z95.5 PRESENCE OF CORONARY ANGIOPLASTY IMPLANT 09/22/2019 GERMAN MAHMOOD MD Ot E03.9 HYPOTHYROIDISM, UNSPECIFIED 09/22/2019 GERMAN MAHMOOD MD, Ot E66.09 OTHER OBESITY DUE TO EXCESS CALORIES 09/22/2019 GERMAN MAHMOOD MD, Ot G62.9 POLYNEUROPATHY, UNSPECIFIED 09/22/2019 GERMAN MAHMOOD MD, Ot I1 0 ESSENTIAL (PRIMARY) HYPERTENSION 09/22/2019 GERMAN MAHMOOD MD, Ot I25.10 ATHSCL HEART DISEASE OF [place] CORONARY 09/22/2019 GERMAN MAHMOOD MD, Ot J45.909 UNSPECIFIED ASTHMA, UNCOMPLICATED 09/22/2019 GERMAN MAHMOOD MD, Ot K21.9 GASTRO-ESOPHAGEAL REFLUX DISEASE WITHOUT 09/22/2019 GERMAN MAHMOOD MD, Ot R20.0 ANESTHESIA OF SKIN 09/22/2019 GERMAN MAHMOOD MD, Ot Z79.01 CONSULTING SOFTWARE ENGINEER (CURRENT) USE OF ANTICOAGULANT 09/22/2019 GERMAN MAMHOOD MD, Ot Z79.02 LONGTERM (CURRENT) USE OF ANTITHROMBOTI 09/22/2019 GERMAN MAHMOOD MD, Ot Z79.82 CONSULTING SOFTWARE ENGINEER (CURRENT) USE OF ASPIRIN 09/22/2019 GERMAN MAHMOOD [...] MD, Ot I25.10 ATHSCL HEART DISEASE OF [place] CORONARY 09/26/2019 GERMAN MAHMOOD MD, Ot J45.909 UNSPECIFIED ASTHMA, UNCOMPLICATED 09/26/2019 GERMAN MAHMOOD MD, Ot K21.9 GASTRO-ESOPHAGEAL REFLUX DISEASE WITHOUT 09/26/2019 GERMAN MAHMOOD MD, Ot R20.0 ANESTHESIA OF SKIN 09/26/2019 GERMAN MAHMOOD MD, Ot Z79.01 LONGTERM (CURRENT) USE OF ANTICOAGULANT 09/26/2019 GERMAN MAHMOOD MD, Ot Z79.02 LONGTERM (CURRENT) USE OF ANTITHROMBOTI 09/26/2019 GERMAN MAHMOOD MD, Ot Z79.82 CONSULTING SOFTWARE ENGINEER (CURRENT) USE OF ASPIRIN 09/26/2019 GERMAN MAHMOOD [...] Ot Z88.0 ALLERGY STATUS TO PENICILLIN 09/26/2019 GERMAN MAHMOOD MD, Ot Z88.6 ALLERGY STATUS TO ANALGESIC AGENT STATUS 09/26/2019 GERMAN MAHMOOD MD, Ot Z88.8 ALLERGY STATUS TO OT DRUG/MEDS/BIOL SUB 09/26/2019 GERMAN MAHMOOD MD, Ot Z95.5 PRESENCE OF CORONARY ANGIOPLASTY IMPLANT 11/06/2019 SHALOM RAMÍREZ APRN Ot E03 .9 HYPOTHYROIDISM, UNSPECIFIED 11/06/2019 SHALOM RAMÍREZ APRN Ot E66.01 MORBID (SEVERE) OBESITY DUE TO EXCESS CA 11/06/2019 SHALOM RAMÍREZ APRN Ot E86 .9 VOLUME DEPLETION, UNSPECIFIED 11/06/2019 SHALOM RAMÍREZ APRN Ot G43.909 MIGRAINE, UNSP, NOT INTRACTABLE, WITHOUT 11/06/2019 SHALOM RAMÍREZ APRN Ot G62 .9 POLYNEUROPATHY, UNSPECIFIED 11/06/2019 SHALOM RAMÍREZ APRN Ot G89.29 OTHER CHRONIC PAIN 11/06/2019 SHALOM RAMÍREZ APRN Ot I10 ESSENTIAL (PRIMARY) HYPERTENSION 11/06/2019 SHALOM RAMÍREZ APRN Ot I25.10 ATHSCL HEART DISEASE OF [place] CORONARY 11/06/2019 SHALOM RAMÍREZ APRN Ot J45.909 UNSPECIFIED ASTHMA, UNCOMPLICATED 11/06/2019 SHALOM RAMÍREZ APRN Ot K21 .9 GASTRO-ESOPHAGEAL REFLUX DISEASE WITHOUT 11/06/2019 SHALOM RAMÍREZ APRN Ot K59.09 OTHER CONSTIPATION 11/06/2019 SHALOM RAMÍREZ APRN Ot M54 .9 DORSALGIA, UNSPECIFIED 11/06/2019 SHALOM RAMÍREZ APRN Ot R10 .2 PELVIC AND PERINEAL PAIN 11/06/2019 SHALOM RAMÍREZ APRN Ot R11 .0 NAUSEA 11/06/2019 SHALOM RAMÍREZ APRN Ot R42 DIZZINESS AND GIDDINESS 11/06/2019 SHALOM RAMÍREZ APRN Ot Z68.43 BODY MASS INDEX (BMI) 50.0-59.9, ADULT 11/06/2019 SHALOM RAMÍREZ APRN Ot Z79.01 LONGTERM (CURRENT) USE OF ANTICOAGULANT 11/06/2019 SHALOM RAMÍREZ APRN Ot Z79.02 CONSULTING SOFTWARE ENGINEER (CURRENT) USE OF ANTITHROMBOTI 11/06/2019 SHALOM RAMÍREZ APRN Ot Z79.82 CONSULTING SOFTWARE ENGINEER (CURRENT) USE OF ASPIRIN 11/06/2019 SHALOM RAMÍREZ APRN Ot Z79.890 HORMONE REPLACEMENT THERAPY 11/06/2019 SHALOM RAMÍREZ APRN Ot Z79.891 LONGTERM (CURRENT) USE OF OPIATE ANALGE 11/06/2019 SHALOM RAMÍREZ APRN Ot Z80 .0 FAMILY HISTORY OF MALIGNANT NEOPLASM OF 11/06/2019 SHALOM RAMÍREZ APRN Ot Z82.49 FAMILY HX OF ISCHEM HEART DIS AND OTH DI 11/06/2019 SHALOM RAMÍREZ APRN Ot Z85.038 PERSONAL HISTORY OF MALIGNANT NEOPLASM O 11/06/2019 SHALOM RAMÍREZ APRN Ot Z86.711 PERSONAL HISTORY OF PULMONARY EMBOLISM 11/06/2019 SHALOM RAMÍREZ APRN Ot Z88 .0 ALLERGY STATUS TO PENICILLIN 11/06/2019 SHALOM RAMÍREZ APRN Ot Z88 .6 ALLERGY STATUS TO ANALGESIC AGENT STATUS 11/06/2019 SHALOM RAMÍREZ APRN Ot Z88 .8 ALLERGY STATUS TO OTH DRUG/MEDS/BIOL SUB 11/06/2019 SHALOM RAMÍREZ APRN Ot Z95 .5 PRESENCE OF CORONARY ANGIOPLASTY IMPLANT Procedures Code Description Performed By Per formed On 10.12 COMPL ETE THYROIDECTOMY 09/11/2009 37.22 LEFT HEART CARDIAC CATH 03/17/2012 88.53 LT H EART ANGIOCARDIOGRAM 03/17/2012 88.56 LORNA LEXUS ARTERIOGR-2 CATH 03/17/2012 97712 XRAY CERVICAL SPINE, 2 OR 3 VIEWS 04/20/2012 75836 ROUT INE VENIPUNCTURE 04/22/2012 89487 INR (IN HOUSE) 04/22/2012 43953 TSH 04/23/2012 66280 OXIMETRY 04/27/2012 37520 THOMAS URE BLOOD OXYGEN LEVEL 05/16/2012 92903 ROUT INE VENIPUNCTURE 06/03/2012 70002 XRAY CHEST 2 VIEW 06/03/2012 43088 BNP 06/03/2012 29163 CBC 06/03/2012 72348 INR (IN HOUSE) 06/03/2012 23789 OXIMETRY 06/03/2012 53558 XRAY FOOT LEFT COMP MIN 3 VIEWS 06/17/2012 69513 SPIR OMETRY 06/29/2012 44414 BRON CHODILATION PRE/POST 06/29/2012 50312 RESP IRATORY FLOW VOLUME LOOP 06/29/2012 16475 UA W / CULTURE IF INDICATED 07/13/[address] A BDOMEN & PELVIS STONE SEARCH 07/28/2012 67994 UA W / CULTURE IF INDICATED 07/28/2012 00780 STON E ANALYSIS 07/29/[address] H EAD/BRAIN W/O & W/DYE 07/30/2012 17638 XRAY ANKLE R COMP MIN, 3 VIEWS 09/02/2012 72128 XRAY FOOT RIGHT 2 VIEWS 09/02/[address] A NGIO, CHEST 10/18/2012 87718 INR (IN HOUSE) 10/28/2012 43532 US G UIDE FOR BIOPSY 12/16/2012 26897 US B REAST(S) ULTRASOUND, BOTH 12/24/2012 43290 INR (IN HOUSE) 01/12/2013 67612 UA W / CULTURE IF INDICATED 01/12/2013 47600 CULT URE URINE 01/14/2013 26325 INR (IN HOUSE) 02/10/2013 67506 ROUT INE VENIPUNCTURE 03/15/2013 02263 XRAY FOOT RIGHT 2 VIEWS 03/15/2013 86366 TSH 03/15/2013 21339 INR (IN HOUSE) 03/15/2013 74015 XRAY CHEST 2 VIEW 03/23/[address] C HEST W/DYE 03/23/2013 62431 ECHO 2D 03/23/2013 46872 OXIMETRY 03/23/2013 69650 INR (IN HOUSE) 03/29/2013 35052 INR (IN HOUSE) 05/18/2013 09160 XRAY CHEST 2 VIEW 05/19/2013 70160 OXIMETRY 05/23/2013 55942 UA W / CULTURE IF INDICATED 06/14/2013 67483 ROUT INE VENIPUNCTURE 06/23/2013 16598 INR (IN HOUSE) 06/23/2013 97148 LIPI D PANEL 06/23/2013 17021 TSH 06/23/2013 71697 MRI EXTREMITY JOINT, LOWER RIGHT, W/O CONTRAST 07/14/2013 ORTHOPEDI JAMARCUS DEVLIN 07/14/2013 43760 ROUT INE VENIPUNCTURE 08/15/2013 83098 INR (IN HOUSE) 08/15/2013 95863 TSH 08/15/2013 72860 INR (IN HOUSE) 09/02/2013 09843 CULT URE URINE 12/16/2013 25800 UA W / CULTURE IF INDICATED 12/16/2013 62197 CULT URE URINE 12/19/2013 26082 ROUT INE VENIPUNCTURE 05/26/2014 75653 INR (IN HOUSE) 05/26/2014 93834 TSH 05/26/2014 72233 CBC 05/26/2014 53334 US V ENOUS DOPPLER (DVT EVAL) 08/07/2014 [id number] DI LATE 1 COR ART, BIFURC, W DRUG-ELUT IN 08/19/2017 [id number] DI LATION OF 1 COR ART WITH DRUG-ELUT INT 08/19/2017 [id number] ME ASURE OF CARDIAC SAMPL PRESSURE, L H 08/19/2017 [id number] FL UOROSCOPY OF MULT COR ART USING L OSM 08/19/2017 [id number] FL UOROSCOPY OF LEFT HEART USING LOW [...] measurement (mass/v olume) < ng/mL <0.30 Thyroid [place] Profile - 04/01/16 09:57 TSH 2.930 uIU/mL [...] blood basophil count (count/volume) 0.0 10*3/uL 0.0-0.1 [id number] - 07/17/16 07:14 Serum or plasma urea [...] 11:16 Hemoglobin A1c 6.8 % 4.8-5.6 Thyroid [place] Profile - 10/22/16 11:16 TSH 7.960 uIU/mL [...] Automated blood platelet mean volume measurement 10.4 [[facility]] 7.4-10.4 Automated blood neutrophils/100 leukocytes 66 % [...] culture - 09/04/17 23:34 Bacterial urine culture [id number] NRG COLONY COUNT >100,000/ML NRG FTX;REPORTABLE SENSITIVITY [...] pa nacho - 11/05/18 18:18 WRISTBAND NUMBER [id number] NRG ABO+Rh group AP NRG Blood group [...] identification in genital specimen by aerobe culture [id number] NRG FREE TEXT EXTERNAL 2 REPORTED 11/18/18 [...] 7-25 CREATININE 0.79 mg/dL 0.50-0.99 eGFR NON-AFR. [place] 81 mL/min/1.73m2 > OR = 60 eGFR [...] TIVE Urine propoxyphene detection NEGATIVE N EGATIVE Complete urinalysis with reflex to cultu re - 11/03/19 19:31 Urine color determination YELLOW NRG Urine clarity determination SL CLOUDY N RG Urine pH measurement by test strip 5.5 5-9 Specific gravity of urine by test strip >= 1.016-1.022 Urine protein assay by test strip, [...] culture YES NRG Bacterial urine culture - 11/03/19 19:31 Bacterial urine culture 3 OR MORE NRG COLONY COUNT 80,000 CFU/ML NRG SUSCEPTIBILITY SUGGESTING PROBABLE COLLECTION NRG MRSA SCREEN CONTAMINATION WITH SKIN KWAME NRG RAPID ID NO SUSCEPTIBILITY PERFORMED N RG Complete blood count (CBC) with automate d white blood cell (WBC) differential - 11/03/19 19:35 Blood leukocytes automated count (number/volume) 11.5 10*3/uL 4.3-11.0 Blood erythrocytes automated count (number/volume) 4.64 10*6/uL 4.35-5.85 Venous blood hemoglobin measurement (mass/volume) 13.8 g/dL 11.5-16.0 Blood hematocrit (volume fraction) 43 % 35-52 Automated erythrocyte mean corpuscular volume 94 [ foz_us] 80-99 Automated erythrocyte mean corpuscular h emoglobin (mass per erythrocyte) 30 pg 25-34 Automated erythrocyte mean corpuscular h emoglobin concentration measurement (mass/volume) 32 g/dL 32-36 Automated erythrocyte distribution width ratio 15. 4 % 10.0- 14.5 Automated blood platelet count (count/volume) 232 10*3/uL 130-400 Automated blood platelet mean volume measurement 10.8 [foz_us] 7.4-10.4 Automated blood neutrophils/100 leukocytes 71 % 42-75 Automated blood lymphocytes/100 leukocytes 21 % 12-44 Blood monocytes/100 leukocytes 7 % 0-12 Automated blood eosinophils/100 leukocytes 1 % 0-10 Automated blood basophils/100 leukocytes 0 % 0-10 Blood neutrophils automated count (number/volume) 8.1 10*3 1.8-7.8 Blood lymphocytes automated count (number/volume) 2.5 10*3 1.0-4.0 Blood monocytes automated count (number/volume) 0. 8 10*3 0.0-1.0 Automated eosinophil count 0.1 10*3/uL 0 .0-0.3 Automated blood basophil count (count/volume) 0.0 10*3/uL 0.0-0.1 Comprehensive metabolic panel - 11/03/19 19:35 Serum or plasma sodium measurement (moles/volume) 140 mmol/L 135-145 Serum or plasma potassium measurement (moles/volume) 3.9 mmol/L 3.6-5.0 Serum or plasma chloride measurement (moles/volume) 103 mmol/L 98-107 Carbon dioxide 25 mmol/L 21-32 Serum or plasma anion gap determination (moles/volume) 12 mmol/L 5-14 Serum or plasma urea nitrogen measurement (mass/volume ) 9 mg/dL 7-18 Serum or plasma creatinine measurement (mass/volume) 1.10 mg/dL 0.60-1.30 Serum or plasma urea nitrogen/creatinine mass ratio 8 NRG Serum or plasma creatinine measurement w ith calculation of estimated glomerular filtration rate 50 NRG Serum or plasma glucose measurement (mass/volume) 164 mg/dL 70-105 Serum or plasma calcium measurement (mass/volume) 9.1 mg/dL 8.5-10.1 Serum or plasma total bilirubin measurement (mass/volu me) 0.3 mg/dL 0.1-1.0 Serum or plasma alkaline phosphatase kit surement (enzymatic activity/volume) 103 U/L 40-136 Serum or plasma aspartate aminotransfera se measurement (enzymatic activity/volume) 25 U/L 5-34 Serum or plasma alanine aminotransferase measurement (enzymatic activity/volume) 21 U/L 0-55 Serum or plasma protein measurement (mass/volume) 8.1 g/dL 6.4-8.2 Serum or plasma albumin measurement (mass/volume) 4.2 g/dL 3.2-4.5 CALCIUM CORRECTED 8.9 mg/dL 8.5-10.1 Serum or plasma troponin i.cardiac measu rement (mass/volume) - 11/03/19 19:35 Serum or plasma troponin i.cardiac measurement (mass/v olume) < ng/mL <0.028 Serum or plasma lithium measurement (mol es/volume) - 11/03/19 19:35 BNP PT < 10.0 <100.0 Complete blood count (CBC) with automate d white blood cell (WBC) differential - 11/17/19 15:30 Blood leukocytes automated count (number/volume) 10.2 10*3/uL 4.3-11.0 Blood erythrocytes automated count (number/volume) 4.44 10*6/uL 4.35-5.85 Venous blood hemoglobin measurement (mass/volume) 13.2 g/dL 11.5-16.0 Blood hematocrit (volume fraction) 41 % 35-52 Automated erythrocyte mean corpuscular volume 92 [ foz_us] 80-99 Automated erythrocyte mean corpuscular h emoglobin (mass per erythrocyte) 30 pg 25-34 Automated erythrocyte mean corpuscular h emoglobin concentration measurement (mass/volume) 32 g/dL 32-36 Automated erythrocyte distribution width ratio 14. 7 % 10.0- 14.5 Automated blood platelet count (count/volume) 223 10*3/uL 130-400 Automated blood platelet mean volume measurement 10.8 [foz_us] 7.4-10.4 Automated blood neutrophils/100 leukocytes 71 % 42-75 Automated blood lymphocytes/100 leukocytes 22 % 12-44 Blood monocytes/100 leukocytes 6 % 0-12 Automated blood eosinophils/100 leukocytes 1 % 0-10 Automated blood basophils/100 leukocytes 0 % 0-10 Blood neutrophils automated count (number/volume) 7.3 10*3 1.8-7.8 Blood lymphocytes automated count (number/volume) 2.2 10*3 1.0-4.0 Blood monocytes automated count (number/volume) 0. 6 10*3 0.0-1.0 Automated eosinophil count 0.1 10*3/uL 0 .0-0.3 Automated blood basophil count (count/volume) 0.0 10*3/uL 0.0-0.1 PT panel in platelet poor plasma by coag ulation assay - 11/17/19 15:30 Prothrombin time (PT) in platelet poor plasma by coagu lation assay 17.6 s 12.2-14.7 INR in platelet poor plasma or blood by coagulation as say 1.4 0.8-1.4 Activated partial thromboplastin time (a PTT) in platelet poor plasma bycoagulation assay - 11/17/19 15:30 Activated partial thromboplastin time (a PTT) in platelet poor plasma bycoagulation assay 25 s 24-35 Comprehensive metabolic panel - 11/17/19 15:30 Serum or plasma sodium measurement (moles/volume) 137 mmol/L 135-145 Serum or plasma potassium measurement (moles/volume) 4.0 mmol/L 3.6-5.0 Serum or plasma chloride measurement (moles/volume) 100 mmol/L 98-107 Carbon dioxide 25 mmol/L 21-32 [...] NRG Serum or plasma glucose measurement (mass/volume) 178 mg/dL 70-105 Serum or plasma calcium measurement (mass/volume) 9.4 mg/dL 8.5-10.1 Serum or plasma total bilirubin measurement (mass/volu me) 0.3 mg/dL 0.1-1.0 Serum or plasma alkaline phosphatase kit surement (enzymatic activity/volume) 103 U/L 40-136 Serum or plasma aspartate aminotransfera se measurement (enzymatic activity/volume) 26 U/L 5-34 Serum or plasma alanine aminotransferase measurement (enzymatic activity/volume) 22 U/L 0-55 Serum or plasma protein measurement (mass/volume) 7.2 g/dL 6.4-8.2 Serum or plasma albumin measurement (mass/volume) 3.9 g/dL 3.2-4.5 CALCIUM CORRECTED 9.5 mg/dL 8.5-10.1 TROPONIN I FS - 11/17/19 15:30 TROPONIN I FS < 0.30 <0.30 PROBNP FS - 11/17/19 15:30 PROBNP FS 35.8 pg/mL <75.0 Lipase - 11/17/19 15:30 Lipase 48 U/L 8-78 Fibrin D-dimer FEU measurement in platel et poor plasma (mass/volume) - 11/17/19 15:30 Fibrin D-dimer FEU measurement in platelet poor plasma (mass/volume) 0.36 ug/mL 0.00-0.49 Encounters ACCT No. Visit Date/Time Discharge Status Pt. Type Provider Facility Loc./Unit Complaint [id number] 08/09/2016 03:07:00 Document Registration [id number] 10/23/2016 15:09:00 Document Registration [id number] 11/03/2019 19:07:00 20:29:00 DIS Outpatient SHALOM RAMÍREZ QM NURSE Via [facility] ER SOA,DIZZINESS [id number] 09/22/2019 14:14:00 15:55:00 DIS Emergency GERMAN MAHMOOD MD Via [facility] ER FS FACIAL/LT ARM NUMBNESS [id number] 05/30/2019 16:52:00 19:21:00 DIS Emergency KUMAR OCHOA DO Via [facility] ER FS LOW BLOOD PRESSURE [id number] 02/06/2019 14:55:00 19:18:00 DIS Emergency MALACHI NAM, MALIKA Olea [facility] ER FS CHEST PAIN [id number] 01/31/2019 21:44:00 23:24:00 DIS Emergency ROSINA VICENTE [facility] ER LEFT ARM SWELLING [id number] 12/15/2018 14:43:00 23:59:59 CLS Outpatient NEVA HU QM NURSE Via [facility] RAD HEMATURIA, UNSPECIFIED TYPE. [id number] 11/13/2018 19:31:00 21:48:00 DIS Emergency SHALOM RAMÍREZ QM NURSE Via [facility] ER UTI [id number] 11/05/2018 17:39:00 21:19:00 DIS Emergency NORIS DOHERTY DO [facility] ER NAUSEA/RECTAL BLEEDING [id number] 10/05/2018 14:36:00 19:15:00 DIS Emergency ALEJANDRA MARTIN DO Via [facility] ER FS CHEST PAIN [id number] 09/09/2018 13:30:00 23:59:59 CLS Outpatient MAYTEDIANA DAVID [facility] RAD FS M79.671 [id number] 08/11/2018 08:53:00 23:59:59 CLS Outpatient NEVA HU Abhay QM NURSE Via [facility] RAD FS RECURRENT SYNCOPE [id number] 07/26/2018 21:53:00 019 00:09:00 DIS Emergency STEPHANY NAM, AMANDEEP Yusuf [facility] ER FS RT FOOT INJ [id number] 07/09/2018 14:14:00 18:30:00 DIS Emergency RAJWINDER NAM, DEWEY S [facility] ER DIZZY, LIGHT HEADED [id number] 09/28/2017 00:11:00 018 23:59:59 CLS Preadmit REAGAN MCNEILL MD Via [facility] LAB Z51.81 Z86.711 [id number] 09/26/2017 09:48:00 018 00:01:00 DIS Outpatient REAGAN MCNEILL MD [facility] LAB Z51.81 Z86.711 [id number] 09/04/2017 22:53:00 018 15:17:00 DIS Inpatient VIANNEY SMITH DO Via [facility] 4TH CHEST PAIN [id number] 08/20/2017 12:34:00 018 13:57:00 DIS Emergency SHALOM RAMÍREZ QM NURSE Via [facility] ER CP [id number] 08/19/2017 08:24:00 018 09:55:00 DIS Outpatient REAGAN MCNEILL MD [facility] CATH ABN STRESS,CP,HTN [id number] 08/05/2017 10:36:00 23:59:59 CLS Outpatient TODD WAGNER [facility] CARD I25.10 CAD [id number] 07/13/2017 14:45:00 018 23:59:59 CLS Preadmit MICHAEL WAGNER Via [facility] CARD I25.10 CAD [id number] 07/10/2017 12:47:00 018 23:59:59 CLS Outpatient PAYAL VIGIL R QM NURSE Via [facility] RAD N20.0 RENAL STO AB [id number] 02/05/2017 12:52:00 017 23:59:59 CLS Outpatient PAYAL VIGIL QM NURSE Via [facility] RAD M54.2 [id number] 01/20/2017 18:36:00 017 23:32:00 DIS Emergency JESSICA NAM, CHARLES Shannon [facility] ER SOB,DIZZINESS,N AUSEA [id number] 12/29/2016 00:14:00 017 23:59:59 CLS Preadmit REAGAN MCNEILL MD Via [facility] LAB Z86.711 [id number] 12/28/2016 13:45:00 017 15:30:00 DIS Emergency BESSY DONORIS Vi a [facility] ER HEADACHE [id number] 09/29/2016 14:31:00 017 00:01:00 DIS Outpatient REAGAN MCNEILL MD Via [facility] LAB Z86.711 [id number] 09/04/2016 13:36:00 017 16:13:00 DIS Emergency MIRIAM SPENCER REGISTRY NURSE Via [facility] ER FALL/ RIGHT KNEE INJ [id number] 07/17/2016 06:58:00 017 23:59:59 CLS Outpatient KAVYA PATRICK QM NURSE Via [facility] RAD GENERALIZED ABD PAIN [id number] 02/16/2016 19:06:00 016 22:12:00 DIS Emergency SHALOM RAMÍREZ QM NURSE Via [facility] ER CHEST PAIN [id number] 02/15/2016 12:58:00 23:59:59 CLS Outpatient PAYAL VIGIL Torri QM NURSE Via [facility] RAD ACUTE RT SIDED THORACIC PAIN [id number] 09/05/2015 07:05:00 09:30:00 DIS Outpatient REAGAN MCNEILL MD Via [facility] CATH CAD,HTN HLP SYNCOPE [id number] 09/04/2015 14:08:00 16:10:00 DIS Emergency SHALOM RAMÍREZ QM NURSE Via [facility] ER CHEST PAIN [id number] 06/21/2015 15:25:00 19:18:00 DIS Emergency MICHELE COTTON Via [facility] ER SOA [id number] 05/23/2015 15:54:00 23:59:59 CLS Outpatient ANTONIOFENBAMIGDALIA DE DIOS DO [facility] LAB HYPOTHYROIDISM, DISORDER OF THE DIGESTIVE SYSTEM [id number] 05/14/2015 21:53:00 00:14:00 DIS Emergency NORIS DOHERTY DO a [facility] ER POST SURGICAL PAIN [id number] 04/21/2015 12:17:00 15:18:00 DIS Emergency CHARLES LOPEZ MD [facility] ER POST OP/BLOODY DRAINAGE [id number] 04/19/2015 06:00:00 19:00:00 DIS Outpatient CHAS RODARTE DO [facility] CRONIC PELVIC PAIN [id number] 04/18/2015 10:51:00 15:10:00 DIS Outpatient BALDEV LITTLEJOHN DO [facility] ABDOMINAL PAIN [id number] 04/14/2015 10:47:00 12:53:00 DIS Emergency DEWEY PURDY MD [facility] ER L LEG PAIN/WEAKNESS [id number] 04/12/2015 13:39:00 23:59:59 CLS Outpatient CHEN INFANTE APRN [facility] LAB ACUTE UPPER RES PIRATORY INFECTION [id number] 04/12/2015 13:34:00 23:59:59 CLS Outpatient CHAS RODARTE DO [facility] PREOP CRONIC PELVIC PAIN [id number] 04/12/2015 13:20:00 23:59:59 CLS Outpatient BALDEV LITTLEJOHN DO [facility] PREOP ABD. PAIN [id number] 03/21/2015 14:46:00 23:59:59 CLS Outpatient CHAS RODARTE DO [facility] RAD PELVIC PAIN [id number] 03/21/2015 10:49:00 23:59:59 CLS Outpatient BALDEV LITTLEJOHN DO [facility] RAD SUPRAPUBIC ABD PAIN [id number] 01/17/2015 10:59:00 23:59:59 CLS Outpatient CHAS RODARTE DO [facility] RAD IUD NOT FOUND ON SONO [id number] 01/12/2015 10:03:00 015 12:10:00 DIS Emergency CELY VIGIL MD [facility] ER POSS BLOOD CLOT IN LUNG [id number] 01/08/2015 15:12:00 23:59:59 CLS Outpatient CHAS RODARTE DO [facility] RAD FIBROID UTERUS [id number] 01/05/2015 15:46:00 015 17:46:00 DIS Emergency SHALOM RAMÍREZ APRN [facility] ER POST COLONOSCOPY [id number] 01/02/2015 13:01:00 15:55:00 DIS Outpatient BALDEV LITTLEJOHN DO [facility] SDC RECTAL BLEEDING [id number] 12/28/2014 05:53:00 23:59:59 CLS Outpatient BALDEV LITTLEJOHN DO Via [facility] PREOP RECTAL BLEEDING [id number] 11/08/2014 14:02:00 015 23:59:59 CLS Outpatient CATERINA SHAH DO Via [facility] RT DYSPNEA [id number] 11/08/2014 20:53:00 015 22:18:00 DIS Emergency SHALOM RAMÍREZ APRN Via [facility] ER ABD PAIN [id number] 10/01/2014 12:06:00 015 13:20:00 DIS Emergency MICHELE COTTON Via [facility] ER CAT BITE [id number] 09/29/2014 17:38:00 20:24:00 DIS Emergency SHALOM RAMÍREZ APRN Via [facility] ER POSSIBLE INTERNAL BLEED ING [id number] 09/06/2014 15:19:00 015 16:50:00 DIS Emergency MICHELE COTTON Via [facility] ER L FOOT/KNEE PAIN [id number] 08/08/2014 14:28:00 015 23:59:59 CLS Outpatient CHARLES FREED [facility] RAD PAIN IN LIMB [id number] 06/23/2014 02:44:00 015 04:43:00 DIS Emergency CHARLES LOPEZ MD Via [facility] ER ABD PAIN [id number] 06/21/2014 13:14:00 015 16:31:00 DIS Emergency NORIS DOHERTY DO [facility] ER VAG BLEEDING [id number] 06/07/2014 19:12:00 015 22:17:00 DIS Emergency NORIS DOHERTY DO [facility] ER LOWER R SIDE PAIN [id number] 05/26/2014 13:46:00 015 23:59:59 CLS Outpatient CHAS RODARTE DO Via [facility] RAD RLQ ABD PAIN [id number] 04/21/2014 22:55:00 014 01:35:00 DIS Emergency BESSY DO, NORIS K Vi a [facility] ER CP [id number] 02/02/2014 06:00:00 11:25:00 DIS Outpatient CHAS RODARTE DO Via [facility] SDC PELVIC PAIN [id number] 01/25/2014 10:03:00 23:59:59 CLS Outpatient CHAS RODARTE DO [facility] PREOP PELVIC PAIN [id number] 01/12/2014 22:23:00 00:42:00 DIS Emergency BESSY NORIS MOYA [facility] ER CHEST PAIN [id number] 2013 14:06:00 18:02:00 DIS Emergency MICHELE COTTON Via [facility] ER POSS UTI [id number] 12/05/2013 20:51:00 22:14:00 DIS Emergency SHALOM RAMÍREZ APRN Via [facility] ER PAINFUL URINATION [id number] 11/26/2013 11:37:00 12:18:00 DIS Emergency SHALOM RAMÍREZ APRN [facility] ER UTI [id number] 09/30/2013 19:00:00 15:30:00 DIS Outpatient REAGAN MCNEILL MD Via [facility] CATH CHEST PAIN [id number] 09/12/2013 07:58:00 23:59:59 CLS Outpatient TODD WAGNER [facility] CARD CAD,CP,GERD ,ROGERS [id number] 08/16/2013 11:45:00 13:35:00 DIS Inpatient REAGAN MCNEILL MD [facility] CSD CHEST PAIN [id number] 07/15/2013 11:49:00 12:17:00 DIS Emergency SHALOM RAMÍREZ APRN [facility] ER RIGHT ANKLE PAIN [id number] 07/11/2013 14:43:00 03/03/2 014 23:59:59 CLS Outpatient [id number] 06/10/2013 15:51:00 23:59:59 CLS Outpatient [id number] 05/19/2013 13:11:00 23:59:59 CLS Outpatient CHARLES FREED [facility] RAD DX PNEUMONIA [id number] 05/12/2013 21:14:00 23:15:00 DIS Emergency CHARLES LOPEZ MD [facility] ER SOA [id number] 04/01/2013 12:54:00 23:59:59 CLS Outpatient CHARLES FREED [facility] CARD SOB, ENLARGED MEDIASTIN UM [id number] 02/27/2013 19:11:00 21:12:00 DIS Emergency MICHELE COTTON [facility] ER NECK/HEAD/BACK PAIN [id number] 01/26/2013 16:39:00 18:16:00 DIS Emergency CHARLES LOPEZ MD [facility] ER COMPLICATIONS F ROM CONCUSSION [id number] 01/11/2013 22:33:00 03:42:00 DIS Emergency CHARLES LOPEZ MD [facility] ER FELL, HEADACHE,DIZZINESS,NAUSEA [id number] 01/06/2013 09:51:00 23:59:59 CLS Outpatient ACE BAJWA MD [facility] LAB CONSULTING SOFTWARE ENGINEER MED USE [id number] 01/06/2013 09:20:00 23:59:59 CLS Outpatient CHARLES FREED [facility] RAD 1.3 CM MASS [id number] 12/24/2012 08:13:00 23:59:59 CLS Outpatient CHARLES FREED [facility] RAD BREAST PAIN [id number] 11/28/2012 04:59:00 07:08:00 DIS Emergency DAVID NAM, WERNER Dillon [facility] ER R SIDE FACIAL PAIN; NO INJ [id number] 11/26/2012 17:26:00 23:59:59 CLS Outpatient [id number] 10/21/2012 14:42:00 19:32:00 DIS Emergency MUSA NAM, CELY Resendiz [facility] ER GI BLEED [id number] 10/19/2012 03:00:00 15:15:00 DIS Outpatient CHARITO NAM, REAGAN Balderas [facility] CATH CHEST PAIN [id number] 10/18/2012 10:23:00 13:31:00 DIS Emergency JESSICA NAM, CHARLES Shannon [facility] ER CP [id number] 11/17/2019 15:46:00 Document Registration [id number] 08/10/2015 18:15:00 Document Registration [id number] 04/22/2014 05:17:00 Document Registration [id number] 04/22/2014 05:17:00 Document Registration [id number] 04/22/2014 05:17:00 Document Registration [id number] 04/22/2014 05:17:00 Document Registration [id number] 04/22/2014 05:17:00 Document Registration [id number] 04/22/2014 05:17:00 Document Registration [id number] 08/17/2012 07:41:00 Document Registration [id number] 08/12/2012 12:16:00 Document Registration [id number] 08/08/2012 21:15:00 Document Registration [id number] 06/20/2012 11:44:00 Document Registration [id number] 05/17/2012 09:58:00 Document Registration [id number] 05/05/2012 07:31:00 Document Registration [id number] 04/20/2012 17:20:00 Document Registration [id number] 03/15/2012 15:15:00 Document Registration [id number] 02/03/2012 05:39:00 Document Registration [id number] 01/29/2012 12:58:00 Document Registration [id number] 01/19/2012 19:43:00 Document Registration [id number] 01/17/2012 15:24:00 Document Registration [id number] 12/31/2011 19:30:00 Document Registration [id number] 11/27/2011 09:08:00 Document Registration [id number] 10/29/2011 19:49:00 Document Registration [id number] 08/28/2011 05:48:00 Document Registration [id number] 08/21/2011 14:12:00 Document Registration [id number] 03/04/2011 13:31:00 Document Registration [id number] 10/08/2010 04:55:00 Document Registration [id number] 08/26/2010 20:58:00 Document Registration [id number] 08/15/2010 09:13:00 Document Registration [id number] 09/15/2009 21:29:00 Document Registration [id number] 09/07/2009 12:20:00 Document Registration [id number] 08/07/2014 09:51:00 08/07/2014 23:59: 59 CLS Outpatient ARIZA DO, JOSE ALBERTO Astrid [id number] 05/26/2014 11:37:00 05/26/2014 23:59: 59 CLS Outpatient ARIZA DO, JOSE ALBERTO Astrid [id number] 01/16/2014 11:28:00 01/16/2014 23:59: 59 CLS Outpatient ARIZA DO, JOSE ALBERTO Resendiz [id number] 12/26/2013 12:31:00 12/26/2013 23:59: 59 CLS Outpatient ARIZA DO, JOSE ALBERTO Astrid [id number] 12/19/2013 13:24:00 12/19/2013 23:59: 59 CLS Outpatient ARIZA DO, JOSE ALBERTO Astrid [id number] 12/16/2013 13:58:00 12/16/2013 23:59: 59 CLS Outpatient ARIZA DO, JOSE ALBERTO Astrid [id number] 12/16/2013 13:58:00 12/16/2013 23:59: 59 CLS Outpatient ARIZA DO, JOSE ALBERTO Astrid [id number] 10/07/2013 14:22:00 10/07/2013 23:59: 59 CLS Outpatient ARIZA DO, JOSE ALBERTO Astrid [id number] 09/02/2013 10:22:00 09/02/2013 23:59: 59 CLS Outpatient ARIZA DOJOSE ALBERTO [id number] 08/15/2013 14:48:00 08/15/2013 23:59: 59 CLS Outpatient ARIZA DOJOSE ALBERTO [id number] 07/14/2013 14:39:00 07/14/2013 23:59: 59 CLS Outpatient CHERYL BIRMNIGHAM APRN Torri [id number] 07/08/2013 08:55:00 07/08/2013 23:59: 59 CLS Outpatient ARIZA DOJOSE ALBERTO [id number] 06/23/2013 09:13:00 06/23/2013 23:59: 59 CLS Outpatient VIVEK DUMONTCHARLES Danielle [id number] 06/14/2013 15:59:00 06/14/2013 23:59: 59 CLS Outpatient CHERYL BIRMINGHAM APRN Torri [id number] 05/30/2013 12:08:00 05/30/2013 23:59: 59 CLS Outpatient ARIZA DOJOSE ALBERTO [id number] 05/23/2013 10:34:00 05/23/2013 23:59: 59 CLS Outpatient ARIZA DOJOSE ALBERTO Astrid [id number] 05/23/2013 10:34:00 05/23/2013 23:59: 59 CLS Outpatient ARIZA DOJOSE ALBERTO Astrid [id number] 05/18/2013 17:42:00 05/18/2013 23:59: 59 CLS Outpatient DONI PALAFOX APRN [id number] 04/18/2013 11:55:00 04/18/2013 23:59: 59 CLS Outpatient ARIZA DOJOSE ALBERTO Astrid [id number] 03/29/2013 11:13:00 03/29/2013 23:59: 59 CLS Outpatient ARIZA DOCHRISTOPHERSantana Resendiz [id number] 03/22/2013 09:39:00 03/22/2013 23:59: 59 CLS Outpatient ARIZA DOCHRISTOPHERSantana Resendiz [id number] 03/22/2013 09:39:00 03/22/2013 23:59: 59 CLS Outpatient ARIZA DO, JOSE ALBERTO K [id number] 03/15/2013 09:00:00 03/15/2013 23:59: 59 CLS Outpatient ARIZA DOCHRISTOPHERSantana Resendiz [id number] 03/15/2013 09:00:00 03/15/2013 23:59: 59 CLS Outpatient ARIZA DOCHRISTOPHERSantana Resendiz [id number] 02/10/2013 08:00:00 02/10/2013 23:59: 59 CLS Outpatient JOSE ALBERTO ARIZA DO [id number] 07/28/2012 14:05:00 07/28/2012 23:59: 59 CLS Outpatient JOSE ALBERTO AIRZA DO [id number] 07/13/2012 10:49:00 07/13/2012 23:59: 59 CLS Outpatient JOSE ALBERTO ARIZA DO [id number] 06/29/2012 07:51:00 06/29/2012 23:59: 59 CLS Outpatient CHARLES DOYLE PA-C [id number] 06/10/2012 10:44:00 06/10/2012 23:59: 59 CLS Outpatient [id number] 06/03/2012 09:27:00 06/03/2012 23:59: 59 CLS Outpatient JOSE ALBERTO ARIZA DO [id number] 05/14/2012 15:57:00 05/14/2012 23:59: 59 CLS Outpatient JOSE ALBERTO ARIZA DO [id number] 04/27/2012 08:04:00 04/27/2012 23:59: 59 CLS Outpatient [id number] 04/22/2012 09:50:00 04/22/2012 23:59: 59 CLS Outpatient [id number] 04/20/2012 16:19:00 04/20/2012 23:59: 59 CLS Outpatient [id number] 02/05/2012 08:28:00 02/05/2012 23:59:5 9 CLS Outpatient MORIS LOYOLA MD [id number] 01/12/2013 09:13:00 Document Registration [id number] 12/16/2012 09:21:00 Document Registration [id number] 12/16/2012 09:21:00 Document Registration [id number] 10/28/2012 12:34:00 Document Registration [id number] 09/10/2012 16:36:00 Document Registration [id number] 08/31/2012 10:19:00 Document Registration [id number] 08/31/2012 10:19:00 Document Registration [id number] 11/16/2019 10:00:00 [facility] [id number] 08/12/2019 16:00:00 Document Registration [id number] 06/17/2019 16:40:00 Document Registration [id number] 01/26/2019 08:00:00 Document Registration [id number] 12/01/2018 09:40:00 Document Registration [id number] 01/01/2018 13:20:00 Document Registration [id number] 09/10/2017 13:00:00 Document Registration [id number] 06/29/2017 14:45:00 Document Registration [id number] 03/26/2017 13:00:00 Document Registration [id number] 01/05/2017 16:00:00 Document Registration [id number] 04/02/2016 13:06:00 Document Registration [id number] 01/06/2017 08:06:00 Document Registration
[2019-11-17] MEDS ORDERED: CATHETER FLUSH 10 ML SYR IV PRN (19:30)
[2019-11-17 20:14] VITALS: BP 118/69
[2019-11-17] MEDS: CATHETER FLUSH 10 ML SYR IV SCH (21:26)
[2019-11-17 21:30] VITALS: BP 100/58
[2019-11-17 22:24] VITALS: BP 106/69
--- NOTE | 2019-11-17 23:11 | NUR ---
DR PATEL NOTIFIED OF A ONE TIME DOSE OF LOVENOX 135MG SQ ON PT'S EMAR ORDERED BY [facility] AT 1715. TOLD DRShanita DOSE DID NOT APPEAR TO BE GIVEN AT [facility]. ALSO ASKED PT IF SHE HAD RECEIVED ANY INJECTIONS AND SHE STATED NO. NEW ORDERS RECEIVED TO D/C LOVENOX DOSE OF 135MG AND GIVEN A ONE TIME DOSE OF LOVENOX 100MG AND A 30MG DOSE TO TOTAL 130MG.
[2019-11-17] MEDS ORDERED: ENOXAPARIN 30 MG/0.3 ML (LOVENOX) SYR SC ONE (23:30)
[2019-11-17] MEDS ORDERED: ENOXAPARIN 100 MG/1 ML (LOVENOX) SYR SC ONE (23:30)
[2019-11-17 23:56] VITALS: BP 105/63
[2019-11-18 00:30] VITALS: BP 101/56
[2019-11-18 04:00] VITALS: BP 118/53
[2019-11-18] MEDS: CATHETER FLUSH 10 ML SYR IV SCH (07:49)
[2019-11-18 08:00] VITALS: BP 134/84
--- NOTE | 2019-11-18 10:21 | Short Stay Summary-Hospitalist ---
History of Present Illness HPI/Chief Complaint Chief complaint: Chest pain History of present illness: This is a 63-year-old white female with known history of CAD who sees Dr. Gilmore at [facility] who presented to the hospital with complaints of chest pain. Troponins were negative. She already talked to Dr. Gilmore she has appointment to see him in 11/24/19. Patient refuses transfer to [facility] since her pain is now gone. She does not feel like she needs to see Dr. Melara cardiology on-call. Reports a spider bite that has not been responsive to ice and elevation. Source: patient, family Exam Limitations: no limitations Date Seen 11/18/19 Time Seen by a Provider: 10:30 Attending Physician Nia Reynoso MD PCP Tiny Courtney Aprn Referring Physician Date of Admission Nov 17, 2019 at 19:11 Home Medications & Allergies Home Medications Reviewed patient Home Medication Reconciliation performed by pharmacy medication reconciliations transport technician and/or nursing. Patients Allergies have been reviewed. Allergies Allergies Coded Allergies methylprednisolone (Verified Allergy, Mild, 11/05/18) Penicillins (Unverified Allergy, Unknown, 11/05/18) atorvastatin (Verified Allergy, Unknown, 11/05/18) isosorbide (Verified Allergy, Unknown, 11/05/18) ketorolac (Verified Allergy, Unknown, ITCHING, 11/05/18) promethazine (Unverified Allergy, Unknown, hallucinations, 11/05/18) venom-honey bee (Unverified Allergy, Unknown, 11/05/18) Uncoded Allergies TAPE ( Allergy, Unknown, 08/16/13) Past Nyhaabu-Jcvxnk-Yrwxwu Hx Past Med/Social Hx: Reviewed Nursing Past Med/Soc Hx, Reviewed and Corrections made Patient Social History Marrital Status: cohabiting Employed/Student: employed, unemployed, 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, 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-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 Alcohol Use: Denies Use Recreational Drug Use: No Smoking Status: Former Smoker Type Used: Cigarettes 2nd Hand Smoke Exposure: Yes Recent Foreign Travel: No Contact w/other who traveled: No Recent Hopitalizations: No Recent Infectious Disease Expo: No Immunizations Up To Date Tetanus Booster (TDap): Less than 5yrs Pediatric: Yes Date of Pneumonia Vaccine: May 11, 2016 Date of Influenza Vaccine: May 06, 2012 Seasonal Allergies Seasonal Allergies: No Past Medical History Surgeries: Appendectomy, Cardiac, Coronary Stent, Gallbladder, Hysterectomy, Orthopedic, Thyroidectomy Respiratory: COPD, Sleep Apnea Currently Using CPAP: No Currently Using BIPAP: No Cardiac: Angina, Coronary Artery Disease, Deep Vein Thrombosis, High Cholesterol, Hypertension, Peripheral Vascular, Syncope Neurological: Headaches /Migraines, Neuropathy Reproductive: Yes (FIBROIDS, CHRONIC PELVIC PAIN ) Sexually Transmitted Disease: No HIV/AIDS: No Hysterectomy Genitourinary: Bladder Infection, Kidney Stones Gastrointestinal: Gastroesophageal Reflux, Chronic Constipation, Gall Bladder Disease Musculoskeletal: Degenerate Disk Disease, Arthritis, Back Injury, Chronic Back Pain, Spasms Endocrine: Hypothyroidsim Loss of Vision: Bilateral Hearing Impairment: Denies Cancer: Colon Psychosocial: Depression History of Blood Disorders: Yes (BLOOD CLOTS-DVT/P.E.'S) Adverse Reaction to Blood Mathias: No Family History Arthritis G8 SISTER Cardiovascular disease 03 FATHER Colon cancer 03 MOTHER Completed stroke 03 MOTHER Hypertension 03 MOTHER G8 BROTHER Myocardial infarction 03 MOTHER Thyroid disease G8 SISTER Review of Systems Constitutional: see HPI Cardiovascular: chest pain Physical Exam Physical Exam Vital Signs Vital Signs - First Documented 11/17/19 11/17/19 15:24 15:30 Temp 36.6 Pulse 78 Resp 16 B/P (MAP) 138/91 (107) Pulse Ox 95 O2 Delivery Room Air Capillary Refill : Less Than 3 Seconds Height, Weight, BMI Height: 5'2.00" Weight: 297lbs. 8.0oz. 134.065974kr; 55.63 BMI Method:Stated General Appearance: No Apparent Distress, WD/WN, Chronically ill, Obese Eyes: Bilateral Eye Normal Inspection, Bilateral Eye PERRL HEENT: PERRL/EOMI Neck: Supple Respiratory: No Respiratory Distress Cardiovascular: Regular Rate, Rhythm Gastrointestinal: Non Tender, Soft Back: Normal Inspection Extremity: Normal Capillary Refill, No Pedal Edema Neurologic/Psychiatric: Alert, Oriented x3 Skin: Warm/Dry, Other (right third finger slight edema no redness) Lymphatic: No Adenopathy Results Results/Procedures Labs Laboratory Tests 11/17/19 15:30 Patient resulted labs reviewed. Short Stay Diagnosis Discharge Diagnosis-Short Stay Admission Diagnosis Assessment: Chest pain negative Troponin Refuses to see cardiology allocation analyst Obesity HTN Right index finger S/P spider bite Final Discharge Diagnosis Assessment: Chest pain negative Troponin Refuses to see cardiology allocation analyst Obesity HTN Right index finger S/P spider bite Conclusion Plan Plan: Discharge home She will see Dr. Gilmore on 11/24/[address] Melara and refuses transfer to [facility] Diagnosis/Problems Diagnosis/Problems (1) Chest pain Qualifiers: Qualified Codes: R07.9 - Chest pain, unspecified Clinical Quality Measures AMI/AHF: ASA po Prior to arrival: No DVT/VTE Risk/Contraindication: Risk Factor Score Per Nursin RFS Level Per Nursing on Admit: 4+=Very High HUMA JARA DO Nov 18, 2019 10:21
[2019-11-18] MEDS ORDERED: DOXY100C42 PO ×2 (10:46)
--- NOTE | 2019-11-18 11:24 | NUR ---
I SPOKE WITH THE PT, WENT THRU THE EXT MED HISTORY AND CALLED GAGANDEEP AND SUSAN- THE PT HAS BEEN DISCHARGED BEFORE I WAS ABLE TO COMPLETE THE MED REC THE FOLLOWING ARE MEDICATIONS THAT THE PT SAYS SHE TAKES: MACROBID FILLED 11-16-2019 CARTIA XT 120MG PLAVIX 75MG LEVOTHYROXINE 150MCG ROSUVASTATIN 5MG WARFARIN 5MG PROAIR PRN OTC MEDS: ASPIRIN 81 NAPROXEN
[2019-11-18 11:40] VITALS: BP 134/84
--- NOTE | 2019-11-18 11:40 | NUR ---
discharge instruction given, verbalized understanding, family at bedside, telemetry dc, iv dc, site without redness or swelling, denies pain, sob or dizziness at this time, instructed to follow up with her family Doctor and spring inspector as scheduled next week
== END 2019-11-18 11:40 | disposition home or self-care (01) ==
LOC: EDUNIT# 15:21 → ER FS 15:22 → 4TH 19:11
PROVIDERS: ADMIT Family Medicine; ATTEND Family Medicine
DX: R07.9 Chest pain, unspecified (principal); K21.9 Gastro-esophageal reflux disease without esophagitis; I82.409 Acute embolism and thrombosis of unspecified deep veins of unspecified lower extremity; G43.909 Migraine, unspecified, not intractable, without status migrainosus; I25.10 Atherosclerotic heart disease of native coronary artery without angina pectoris; G89.18 Other acute postprocedural pain; E03.9 Hypothyroidism, unspecified; M19.90 Unspecified osteoarthritis, unspecified site; G62.9 Polyneuropathy, unspecified; E78.00 Pure hypercholesterolemia, unspecified; J45.909 Unspecified asthma, uncomplicated; G47.30 Sleep apnea, unspecified; I26.99 Other pulmonary embolism without acute cor pulmonale; E66.01 Morbid (severe) obesity due to excess calories; Z68.43 Body mass index [BMI] 50.0-59.9, adult; Z79.51 Long term (current) use of inhaled steroids; Z79.82 Long term (current) use of aspirin; Z79.899 Other long term (current) drug therapy; Z88.0 Allergy status to penicillin; Z88.8 Allergy status to other drugs, medicaments and biological substances; Z88.5 Allergy status to narcotic agent; Z91.030 Bee allergy status; Z87.891 Personal history of nicotine dependence; Z91.048 Other nonmedicinal substance allergy status; Z90.710 Acquired absence of both cervix and uterus
CPT/HCPCS: 36415; 71045; 80053; 83690; 83880; 84484 ×2; 85025; 85379; 85610; 85730; 99284; G0378

== ENCOUNTER → 2019-11-21 | Outpatient (CLI) | payer MEDICARE, MEDICAID ==
[~2019-11-21] MED LIST changes: +DOXY100C42 PO
[2019-11-21 12:32] LABS: BASOPHILS % (AUTO) 0 % (0-10); EOSINOPHILS # (AUTO) 0.1 10^3/uL (0.0-0.3); EOSINOPHILS % (AUTO) 1 % (0-10); HEMATOCRIT 42 % (35-52); LYMPHOCYTES # (AUTO) 2.2 X 10^3 (1.0-4.0); LYMPHOCYTES % (AUTO) 24 % (12-44); MEAN CORPUSCULAR HEMOGLOBIN 29 PG (25-34); MEAN CORPUSCULAR HGB CONC 31 G/DL (32-36); MEAN CORPUSCULAR VOLUME 94 FL (80-99); MEAN PLATELET VOLUME 10.7 FL (7.4-10.4); MONOCYTES # (AUTO) 0.5 X 10^3 (0.0-1.0); MONOCYTES % (AUTO) 5 % (0-12); NEUTROPHILS # (AUTO) 6.4 X 10^3 (1.8-7.8); NEUTROPHILS % (AUTO) 69 % (42-75); PLATELET COUNT 200 10^3/uL (130-400); RED CELL DISTRIBUTION WIDTH 14.7 % (10.0-14.5); WHITE BLOOD COUNT 9.2 10^3/uL (4.3-11.0)
[2019-11-21 12:40] LABS: INR 1.3 (0.8-1.4); PROTHROMBIN TIME PATIENT 16.8 SEC (12.2-14.7)
--- NOTE | 2019-11-21 12:47 | Diagnostic Imaging Report ---
INDICATION: Pain and swelling of the hand and wrist COMPARISON: None. FINDINGS: 3 views of the right hand were obtained and show no fractures, dislocations, or other acute bony abnormalities. Mild osteoarthritic changes are noted at the 1st carpometacarpal joint space as well as the 1st metacarpal phalangeal joint space. Otherwise, joint spaces are well maintained throughout. The soft tissues appear unremarkable. No radiopaque foreign bodies are identified. IMPRESSION: 1. Osteoarthritic changes of the 1st carpometacarpal and metacarpophalangeal joint spaces. Otherwise, unremarkable radiographic exam of the right hand. Dictated by: Dictated on workstation # [id number]
== END ==
LOC: LAB FS 12:04
PROVIDERS: ATTEND Nurse Practitioner Family
DX: M19.041 Primary osteoarthritis, right hand (principal); Z87.39 Personal history of other diseases of the musculoskeletal system and connective tissue; Z79.01 Long term (current) use of anticoagulants
CPT/HCPCS: 36415; 73130; 84550; 85025; 85610

== ENCOUNTER 2020-01-29 18:33 | Observation (INO) | payer MEDICARE, MEDICAID ==
[~2020-01-29] VITALS: Ht 157.5 cm; Wt 145.8 kg
[~2020-01-29 18:33] MED LIST changes: +ASPI-1238 PO; -ASPI-983 PO; +WARF7.5T3 PO; -WARF7.5T49 PO
[2020-01-29] MEDS ORDERED: ASPIRIN 81 MG CHEW (CHILDREN'S ASA) ONE (19:19)
[2020-01-29 19:21] LABS: BASOPHILS % (AUTO) 0 % (0-10); EOSINOPHILS # (AUTO) 0.1 10^3/uL (0.0-0.3); EOSINOPHILS % (AUTO) 1 % (0-10); HEMATOCRIT 42 % (35-52); HEMOGLOBIN 13.3 G/DL (11.5-16.0); LYMPHOCYTES # (AUTO) 2.8 X 10^3 (1.0-4.0); LYMPHOCYTES % (AUTO) 27 % (12-44); MEAN CORPUSCULAR HEMOGLOBIN 30 PG (25-34); MEAN CORPUSCULAR HGB CONC 32 G/DL (32-36); MEAN CORPUSCULAR VOLUME 93 FL (80-99); MEAN PLATELET VOLUME 10.6 FL (7.4-10.4); MONOCYTES # (AUTO) 0.8 X 10^3 (0.0-1.0); MONOCYTES % (AUTO) 8 % (0-12); NEUTROPHILS # (AUTO) 6.6 X 10^3 (1.8-7.8); NEUTROPHILS % (AUTO) 64 % (42-75); PLATELET COUNT 244 10^3/uL (130-400); WHITE BLOOD COUNT 10.4 10^3/uL (4.3-11.0)
[2020-01-29] MEDS ORDERED: morphine INJ 10 MG/ML 1ML (SYR OR VIAL) ONE (19:21)
[2020-01-29] MEDS ORDERED: ONDANSETRON 4 MG/2 ML (SDV) Z0FRAN ONE (19:24)
[2020-01-29] MEDS ORDERED: ONDANSETRON 4 MG/2 ML (SDV) Z0FRAN IVP ONE (19:30)
[2020-01-29] MEDS ORDERED: morphine INJ 10 MG/ML 1ML (SYR OR VIAL) IVP ONE (19:30)
[2020-01-29] MEDS ORDERED: ASPIRIN 81 MG CHEW (CHILDREN'S ASA) PO ONE (19:30)
[2020-01-29 19:39] LABS: FIBRIN DEGRADATION PRODUCTS 0.43 UG/ML (0.00-0.49); INR 3.9 (0.8-1.4)
[2020-01-29 19:44] LABS: ALANINE AMINOTRANSFERASE 28 U/L (0-55); ALBUMIN 3.8 GM/DL (3.2-4.5); ALKALINE PHOSPHATASE 98 U/L (40-136); BILIRUBIN,TOTAL 0.2 MG/DL (0.1-1.0); BUN/CREATININE RATIO 11; CALCIUM 8.7 MG/DL (8.5-10.1); CARBON DIOXIDE 20 MMOL/L (21-32); CHLORIDE 101 MMOL/L (98-107); CREATININE SERUM 0.93 MG/DL (0.60-1.30); GFR ESTIMATED > 60; GLUCOSE 263 MG/DL (70-105); POTASSIUM 4.2 MMOL/L (3.6-5.0); SODIUM 135 MMOL/L (135-145); TOTAL PROTEIN 7.6 GM/DL (6.4-8.2)
--- NOTE | 2020-01-29 19:46 | ED General ---
General Chief Complaint: Chest Pain Stated Complaint: DX W/ PNEUMONIA,SOB Nursing Triage Note: PT STATES CHEST PAIN ON BOTH SIDES AND SOB, HX OF PNEUMONIA, STENT PLACED 5 WKS AGO, NAUSEA Nursing Sepsis Screen: No Definite Risk Source of Information: Patient Exam Limitations: No Limitations History of Present Illness Date Seen by Provider: Jan 29, 2020 Time Seen by Provider: 18:50 Initial Comments Here with report of bilateral chest pain and believes that her pneumonia is worsening. She was apparently diagnosed with pneumonia earlier this week by her primary care provider after x-ray that was done in [place]. States that it involved one lung previously but now involves both forearms and has pain in her chest that goes from her back to her front. This is different than the chest pain that she had when she had stents placed 5 weeks ago. States that she hasn't been anywhere but she has been to [place] and to her primary care provider's office in the last week. Denies fevers but does complain of shortness of breath as well as nausea. States chest pain is 7 out of 10 and sharp especially when breathing. Timing/Duration: 1 Week, Getting Worse Severity: Moderate Associated Systoms: Chest Pain, Cough; No Diaphoresis, No Fever/Chills; Nause a/Vomiting, Shortness of Air; No Weakness Allergies and Home Medications Allergies Coded Allergies: methylprednisolone (Verified Allergy, Mild, 11/05/18) Penicillins (Unverified Allergy, Unknown, 11/05/18) atorvastatin (Verified Allergy, Unknown, 11/05/18) isosorbide (Verified Allergy, Unknown, 11/05/18) ketorolac (Verified Allergy, Unknown, ITCHING, 11/05/18) promethazine (Unverified Allergy, Unknown, hallucinations, 11/05/18) venom-honey bee (Unverified Allergy, Unknown, 11/05/18) Uncoded Allergies: TAPE (Allergy, Unknown, 08/16/13) Home Medications Acetaminophen 500 Mg Tablet, 500 MG PO BID PRN for PAIN-MILD, (Reported) Albuterol Sulfate 18 Gm Hfa.aer.ad, 1 PUFF INH Q4H PRN for SHORTNESS OF BREATH, (Reported) Albuterol Sulfate 2.5 Mg/3 Ml Vial.neb, 2.5 MG NEB Q4H PRN for SHORTNESS OF BREATH, (Reported) Aspirin 81 Mg Tablet.dr, 81 MG PO DAILY Prescribed by: REAGAN MELARA on 08/20/17 0800 Clopidogrel Bisulfate 75 Mg Tablet, 75 MG PO DAILY Prescribed by: REAGAN MELARA on 08/20/17 0800 Doxycycline Monohydrate 100 Mg Capsule, 100 MG PO BID Prescribed by: HUMA JARA on 11/18/19 1046 Hydrocodone Bit/Acetaminophen 1 Ea Tablet, 1 EACH PO Q6H PRN for CHEST PAIN Prescribed by: ALEJANDRA MARTIN on 10/05/18 1849 Levothyroxine Sodium 150 Mcg Tablet, 150 MCG PO HS, (Reported) Nitroglycerin 0.4 Mg Tab.subl, 0.4 MG SL PRN 1 TAB SUBLINGUAL Q5MIN. RETURN TO THE ER IF YOUR CHEST PAIN CONTINUES OR IS UNRESPLVED. Prescribed by: SHALOM RAMÍREZ on 08/20/17 1350 Omeprazole 20 Mg Capsule., 20 MG PO DAILY, (Reported) LAST FILLED #30 04-15-17 Ondansetron 8 Mg Tab.rapdis, 8 MG PO Q6H Prescribed by: NORIS DOHERTY on 11/05/182008 Warfarin Sodium 5 Mg Tablet, 5 MG PO DAILY, (Reported) Patient Home Medication List Home Medication List Reviewed: Yes Review of Systems Review of Systems Constitutional: see HPI; No chills, No fever EENTM: No nose congestion, No nose pain, No throat pain Respiratory: No cough; short of breath Cardiovascular: chest pain; No edema Gastrointestinal: No abdominal pain; nausea; No vomiting Genitourinary: no symptoms reported Musculoskeletal: no symptoms reported Skin: no symptoms reported Psychiatric/Neurological: No Symptoms Reported All Other Systems Reviewed Negative Unless Noted: Yes Past Zzckukw-Xdgmhf-Ifyaoy Hx Past Med/Social Hx: Reviewed Nursing Past Med/Soc Hx Patient Social History Alcohol Use: Denies Use Recreational Drug Use: No Smoking Status: Current Everyday Smoker Type Used: Cigarettes 2nd Hand Smoke Exposure: Yes Recent Foreign Travel: No Contact w/Someone Who Travel: No Recent Infectious Disease Expo: No Recent Hopitalizations: No Immunizations Up To Date Tetanus Booster (TDap): Less than 5yrs PED Vaccines UTD: Yes Date of Pneumonia Vaccine: May 11, 2016 Date of Influenza Vaccine: May 06, 2012 Seasonal Allergies Seasonal Allergies: No Past Medical History Surgeries: Yes Appendectomy, Cardiac, Coronary Stent, Gallbladder, Hysterectomy, Orthopedic, Thyroidectomy Respiratory: Yes (HAS CPAP--DOES NOT USE ON REGULAR BASIS; P.E. X2) Asthma, Pulmonary Embolism, Sleep Apnea Currently Using CPAP: No Currently Using BIPAP: No Cardiac: Yes (P.E. 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 Sexually Transmitted Disease: No HIV/AIDS: No Genitourinary: Yes Bladder Infection, Kidney Stones Gastrointestinal: Yes (S/P GENI) Gastroesophageal Reflux, Chronic Constipation, Gall Bladder Disease Musculoskeletal: Yes Degenerate Disk Disease, Arthritis, Back Injury, Chronic Back Pain, Spasms Endocrine: Yes (MORBID OBESITY; THYROIDECTOMY) Hypothyroidsim HEENT: Yes Loss of Vision: Bilateral Hearing Impairment: Denies Cancer: No Colon Psychosocial: No Depression Integumentary: No Blood Disorders: Yes (BLOOD CLOTS-DVT/P.E.'S) Adverse Reaction/Blood Tranf: No Family Medical History Reviewed Nursing Family Hx Arthritis G8 SISTER Cardiovascular disease 03 FATHER Colon cancer 03 MOTHER Completed stroke 03 MOTHER Hypertension 03 MOTHER G8 BROTHER Myocardial infarction 03 MOTHER Thyroid disease G8 SISTER Physical Exam-Suspected Sepsis Physical Exam Vital Signs Vital Signs - First Documented 01/29/20 01/29/20 18:58 19:43 Temp 36.3 Pulse 82 Resp 22 B/P (MAP) 143/73 (96) Pulse Ox 95 O2 Delivery Room Air Capillary Refill : Less Than 3 Seconds Blood Pressure Mean: 96 Height, Weight, BMI Height: 5'2.00" Weight: 297lbs. 8.0oz. [id number]; 55.00 BMI Method:Stated General Appearance: No Apparent Distress, WD/WN, Obese HEENT: PERRL/EOMI, Pharynx Normal Neck: Non Tender, Supple Respiratory: Lungs Clear, Normal Breath Sounds Cardiovascular: Regular Rate, Rhythm, No Murmur Gastrointestinal: Non Tender, Soft Back: Normal Inspection, No Vertebral Tenderness, CVA Tenderness (L), CVA Tenderness (R) Extremity: Normal Range of Motion, Non Tender Neurologic/Psychiatric: Alert, Oriented x3 Skin: normal color, warm/dry Focused Exam Lactate Level 01/29/20 19:10: Lactic Acid Level 3.76*H Lactic Acid Level Laboratory Tests Test 01/29/20 19:10 Lactic Acid Level 3.76 MMOL/L (0.50-2.00) *H Progress/Results/Core Measures Suspected Sepsis Recent Fever Within 48 Hours: No Infection Criteria Present: Documented Infection New/Unexplained Altered Menta: No Sepsis Screen: No Definite Risk SIRS Temperature: Pulse: 82 Respiratory Rate: 22 Laboratory Tests 01/29/20 19:10: White Blood Count 10.4 Blood Pressure 143 /73 Mean: 96 01/29/20 19:10: Lactic Acid Level 3.76*H Laboratory Tests 01/29/20 19:10: Creatinine 0.93, INR Comment 3.9H, Platelet Count 244, Total Bilirubin 0.2 Results/Orders Lab Results Laboratory Tests Test 01/29/20 19:00 01/29/20 19:10 01/29/20 20:05 Range/Units White Blood Count 10.4 4.3-11.0 10^3/uL Red Blood Count 4.48 4.35-5.85 10^6/uL Hemoglobin 13.3 11.5-16.0 G/DL Hematocrit 42 35-52 % Mean Corpuscular Volume 93 80-99 FL Mean Corpuscular Hemoglobin 30 25-34 PG Mean Corpuscular Hemoglobin Concent 32 32-36 G/DL Red Cell Distribution Width 15.2 H 10.0-14.5 % Platelet Count 244 130-400 10^3/uL Mean Platelet Volume 10.6 H 7.4-10.4 FL Neutrophils (%) (Auto) 64 42-75 % Lymphocytes (%) (Auto) 27 12-44 % Monocytes (%) (Auto) 8 0-12 % Eosinophils (%) (Auto) 1 0-10 % Basophils (%) (Auto) 0 0-10 % Neutrophils # (Auto) 6.6 1.8-7.8 X 10^3 Lymphocytes # (Auto) 2.8 1.0-4.0 X 10^3 Monocytes # (Auto) 0.8 0.0-1.0 X 10^3 Eosinophils # (Auto) 0.1 0.0-0.3 10^3/uL Basophils # (Auto) 0.0 0.0-0.1 10^3/uL Prothrombin Time 38.0 H 12.2-14.7 SEC INR Comment 3.9 H 0.8-1.4 Activated Partial Thromboplast Time 52 H 24-35 SEC D-Dimer 0.43 0.00-0.49 UG/ML Sodium Level 135 135-145 MMOL/L Potassium Level 4.2 3.6-5.0 MMOL/L Chloride Level 101 98-107 MMOL/L Carbon Dioxide Level 20 L 21-32 MMOL/L Anion Gap 14 5-14 MMOL/L Blood Urea Nitrogen 10 7-18 MG/DL Creatinine 0.93 0.60-1.30 MG/DL Estimat Glomerular Filtration Rate > 60 BUN/Creatinine Ratio 11 Glucose Level 263 H 70-105 MG/DL Lactic Acid Level 3.76 *H 0.50-2.00 MMOL/L Calcium Level 8.7 8.5-10.1 MG/DL Corrected Calcium 8.9 8.5-10.1 MG/DL Total Bilirubin 0.2 0.1-1.0 MG/DL Aspartate Amino Transf (AST/SGOT) 30 5-34 U/L Alanine Aminotransferase (ALT/SGPT) 28 0-55 U/L Alkaline Phosphatase 98 40-136 U/L Troponin I < 0.028 <0.028 NG/ML C-Reactive Protein High Sensitivity 2.14 H 0.00-0.50 MG/DL Total Protein 7.6 6.4-8.2 GM/DL Albumin 3.8 3.2-4.5 GM/DL Procalcitonin 0.08 <0.10 NG/ML Urine Color YELLOW Urine Clarity SL CLOUDY Urine pH 5.0 5-9 Urine Specific [place] 1.025 H 1.016-1.022 Urine Protein NEGATIVE NEGATIVE Urine Glucose (UA) NEGATIVE NEGATIVE Urine Ketones NEGATIVE NEGATIVE Urine Nitrite NEGATIVE NEGATIVE Urine Bilirubin NEGATIVE NEGATIVE Urine Urobilinogen 0.2 < = 1.0 MG/DL Urine Leukocyte Esterase NEGATIVE NEGATIVE Urine RBC (Auto) 1+ H NEGATIVE Urine RBC 2-5 H /HPF Urine WBC NONE /HPF Urine Squamous Epithelial Cells 2-5 /HPF Urine Crystals NONE /LPF Urine Bacteria FEW H /HPF Urine Casts NONE /LPF Urine Mucus NEGATIVE /LPF Urine Culture Indicated CULTURE PENDING Micro Results Microbiology 01/29/20 Influenza Types A,B Antigen (JOSÉ ANTONIO) - Final, Complete My Orders Orders - VINITA DAWN MD Cbc With Automated Diff (01/29/20 19:04) Comprehensive Metabolic Panel (01/29/20 19:04) Blood Culture (01/29/20 19:04) Sputum Culture (01/29/20 19:04) Urinalysis (01/29/20 19:04) Urine Culture (01/29/20 19:04) Protime With Inr (01/29/20 19:04) Partial Thromboplastin Time (01/29/20 19:04) Chest 1 View, Ap/Pa Only (01/29/20 19:04) Ed Iv/Invasive Line Start (01/29/20 19:04) Ed Iv/Invasive Line Start (01/29/20 19:04) Ekg Tracing (01/29/20 19:04) Troponin I (01/29/20 19:04) Vital Signs Adult Sepsis Patie Q15M (01/29/20 19:04) O2 (01/29/20 19:04) Remove Rings In Anticipation O (01/29/20 19:04) Lactic Acid Analyzer (01/29/20 19:04) Influenza A And B Antigens (01/29/20 19:04) Procalcitonin (Pct) (01/29/20 19:04) Hs C Reactive Protein (01/29/20 19:04) Coronavirus Sars-Cov-2 So 2018 (01/29/20 19:04) Fibrin Degradation Products (01/29/20 19:10) Aspirin Chewable Tablet (Baby Aspirin Ch (01/29/20 19:30) Aspirin Chewable Tablet (Baby Aspirin Ch (01/29/20 19:19) Morphine Injection (Morphine Injection (01/29/20 19:30) Morphine Injection (Morphine Injection (01/29/20 19:21) Ondansetron Injection (Zofran Injectio (01/29/20 19:30) Ondansetron Injection (Zofran Injectio (01/29/20 19:24) Lactated Ringers (Lr 1000 Ml Iv Solution (01/29/20 19:47) Lactated Ringers (Lr 1000 Ml Iv Solution (01/29/20 19:47) Cefepime 1 Gm Iv (1x Dose) (01/29/20 21:15) Medications Given in ED Current Medications Medications Dose Ordered Sig/Marcio Route Start Time Stop Time Status Last Admin Dose Admin Aspirin 324 mg ONCE ONCE PO 01/29/20 19:30 01/29/20 19:31 DC 01/29/20 19:25 324 MG Morphine Sulfate 4 mg ONCE ONCE IVP 01/29/20 19:30 01/29/20 19:31 DC 01/29/20 19:27 4 MG Ondansetron HCl 4 mg ONCE ONCE IVP 01/29/20 19:30 01/29/20 19:31 DC 01/29/20 19:28 4 MG Vital Signs/I&O 01/29/20 01/29/20 01/29/20 18:58 19:27 19:43 Temp 36.3 36.3 36.3 Pulse 82 75 Resp 22 20 B/P (MAP) 143/73 (96) 117/84 Pulse Ox 95 O2 Delivery Room Air Capillary Refill : Less Than 3 Seconds Blood Pressure Mean: 96 Progress Note : Progress Note Seen and evaluated. IV, labs, EKG, chest x-ray and covered screening initiated. ASA 324 mg by mouth. Morphine 4 mg IV for pain. Patient states that she needs nausea medicine with that so Zofran 4 mg IV ordered as well. Monitor patient. 1950: LR 2 L bolus ordered for lactic acid greater than 3. Does not meet category for high-volume fluid resuscitation but we will initiate 2 liter bolus which will exceeded 30 mL/kg based on ideal body weight of 50 kg as her BMI is greater then 30. Monitor patient. 2099: Lactic acid redraw pending. I have discussed the case with Dr. Leonard, on-call for [facility]. She accepts patient for admission, observation status due to chest pain and lactic acidosis. We will initiate cefepime. Patient is on Coumadin and INR is 3.9. Patient apparently is on Levaquin which will be stopped especially since she is on warfarin and we will switch her to cefepime 1 g IV now and continue that in the hospital. Chest x-ray did not specifically show pneumonia and UA had no concerning findings. Unsure of source for sepsis and lactic acidosis may be related to other things. Troponin negative at this point. We will consult Dr. Melara which was placed at 2104. He agrees with continuing repeat troponin and he will see her tomorrow. Patient will be PUI. Patient agrees to admission. ECG Initial ECG Impression Date: Jan 29, 2020 Initial ECG Impression Time: 18:52 Initial ECG Rate: 76 Initial ECG Rhythm: Normal Sinus Initial ECG Comparisson: No Previous ECG Available Comment Sinus rhythm with normal axis. No evidence of ST elevation OK. Similar to pr evious of 11/17/19. Interpreted by me. Diagnostic Imaging Diagonstic Imaging: Xray Plain Films/CT/US/NM/MRI: chest Comments [facility], [place] NAME: OTONIEL DUNAWAY [facility] REC#: [id number] PT STATUS: REG ER : 1955 PHYSICIAN: VINITA DAWN MD ADMIT DATE: 01/29/20/ER Draft Date of Exam:01/29/20 CHEST 1 VIEW, AP/PA ONLY EXAMINATION: Chest radiograph, portable AP view. DATE: 01/29/2020 7:29 PM. INDICATION: 64-year-old female, sepsis, chest pain, shortness of breath. COMPARISON: November 17, 2019. FINDINGS: There is cervical spine hardware. Stable overall appearance of the cardiomediastinal silhouette. There is no identified pneumothorax. There is no large pleural effusion. There is no identified interval focal airspace consolidation. There are technical limitations of the study relating to patient body habitus and difficulties with exposure. IMPRESSION: No identified acute cardiopulmonary abnormality. Dictated on workstation # [id number] Dict: 01/29/201934 Trans: 01/29/201942 [facility] [id number] Interpreted by: JORGE KAT MD Electronically signed by: Departure Communication (Admissions) Time/Spoke to Admitting Phy: 21:00 Time/Spoke to Consulting Phy: 21:05 Impression Primary Impression: Chest pain Qualified Codes: R07.9 - Chest pain, unspecified Additional Impressions: Lactic acidosis COVID-19 evaluation Disposition: ADMITTED INPATIENT Condition: Stable Admissions Decision to Admit Reason: Admit from ER (General) Decision to Admit/Date: Jan 29, 2020 Time/Decision to Admit Time: 21:00 Departure-Patient Inst. Referrals: [facility] (PCP) Primary Care Physician NEVA HU GARNETT MECHANIC (Family) Primary Care Physician VINITA DAWN MD Jan 29, 2020 19:45
[2020-01-29] MEDS ORDERED: LACTATED RINGERS 1,000 ML IV STA (19:47)
[2020-01-29] MEDS ORDERED: LACTATED RINGERS 1,000 ML IV ONE ×2 (19:47→21:52)
[2020-01-29 20:39] LABS: BILIRUBIN,URINE NEGATIVE (NEGATIVE); CLARITY,URINE SL CLOUDY; COLOR,URINE YELLOW; GLUCOSE, URINE (UA) NEGATIVE (NEGATIVE); KETONES,URINE NEGATIVE (NEGATIVE); LEUKOCYTE ESTERASE ,URINE NEGATIVE (NEGATIVE); NITRITE,URINE NEGATIVE (NEGATIVE); PROTEIN,URINE NEGATIVE (NEGATIVE)
[2020-01-29 20:46] LABS: BACTERIA,URINE FEW /HPF
[2020-01-29] MEDS ORDERED: CEFEPIME INJECTION 1,000 MG in WATER (STERILE) FOR INJECTION 10 ML IV ONE (21:15)
--- NOTE | 2020-01-29 21:23 | NUR ---
TELEPHONE REPORT RECEIVED FROM FRANCIA NATHAN FROM ED AT THIS TIME.
[2020-01-29 22:11] VITALS: BP 115/70
--- NOTE | 2020-01-29 22:11 | NUR ---
OTONIEL DUNAWAY admitted to room 415-1, with an admitting diagnosis of CHEST PAIN, LACTIC ACIDOSIS, AND COVID PUI, [facility] accompanied by STAFF.OTONIEL DUNAWAY introduced to surroundings, call light, bed controls, phone, TV, temperature control, lights, meal times, smoking policy, visitor policy, side rail policy, bathrooms and showers. Patient Rights given to patient in the handbook. OTONIEL DUNAWAY verbalizes understanding that [facility] is not responsible for the loss or damage to any personal effects or valuables that are kept in the patients posession during their hospitalization. OTONIEL DUNAWAY verbalizes understanding of Interdisciplinary Patient Education. Patient and/or family were informed about the Rapid Response Team and its purpose.
[2020-01-29] MEDS ORDERED: ONDANSETRON 4 MG/2 ML (SDV) Z0FRAN IV PRN (22:15)
[2020-01-29] MEDS ORDERED: VASOPRESSIN 20 UNITS/NS 100 ML DRIP IV SCH ×2 (22:30)
[2020-01-29] MEDS ORDERED: EPINEPHrine 1 MG INJECTION 4 MG in NS (IVPB) 246 ML IV SCH (22:30)
[2020-01-29] MEDS ORDERED: NOREPINEPHRINE 4 MG/250 ML 250 ML IV SCH (22:30)
[2020-01-29 23:17] VITALS: BP 146/78
[2020-01-29] MEDS: CLOPIDOGREL 75 MG (PLAVIX) TABLET PO SCH (23:18)
[2020-01-29] MEDS: morphine INJ 4 MG/ML 1 ML (VIAL/SYRINGE) IV PRN (23:18)
[2020-01-29] MEDS: LACTATED RINGERS 1,000 ML IV SCH (23:19)
[2020-01-29 23:45] VITALS: BP 106/64
--- NOTE | 2020-01-29 23:50 | NUR ---
2L LR FLUID BOLUS FROM ED FINISHED AT THIS TIME.
[2020-01-30] MEDS ORDERED: RT-ALBUTEROL INHALER HFA (VENTOLIN HFA) 18 GM IH PRN ×2 (00:15→15:00)
[2020-01-30 03:03] VITALS: BP 113/63
[2020-01-30] MEDS: CEFEPIME INJECTION 1,000 MG in WATER (STERILE) FOR INJECTION 10 ML IV SCH ×4 (03:03→22:13)
[2020-01-30 05:22] LABS: BASOPHILS % (AUTO) 0 % (0-10); EOSINOPHILS # (AUTO) 0.1 10^3/uL (0.0-0.3); EOSINOPHILS % (AUTO) 2 % (0-10); HEMATOCRIT 37 % (35-52); HEMOGLOBIN 11.3 G/DL (11.5-16.0); LYMPHOCYTES % (AUTO) 24 % (12-44); MEAN CORPUSCULAR HEMOGLOBIN 29 PG (25-34); MEAN CORPUSCULAR HGB CONC 31 G/DL (32-36); MEAN CORPUSCULAR VOLUME 95 FL (80-99); MEAN PLATELET VOLUME 10.5 FL (7.4-10.4); MONOCYTES # (AUTO) 0.6 X 10^3 (0.0-1.0); MONOCYTES % (AUTO) 8 % (0-12); NEUTROPHILS # (AUTO) 5.5 X 10^3 (1.8-7.8); NEUTROPHILS % (AUTO) 67 % (42-75); PLATELET COUNT 186 10^3/uL (130-400); WHITE BLOOD COUNT 8.3 10^3/uL (4.3-11.0)
[2020-01-30 05:27] LABS: CHLORIDE 106 MMOL/L (98-107); POTASSIUM 4.1 MMOL/L (3.6-5.0); SODIUM 140 MMOL/L (135-145)
[2020-01-30 05:28] LABS: ALBUMIN 3.3 GM/DL (3.2-4.5)
[2020-01-30 05:29] LABS: CALCIUM 8.3 MG/DL (8.5-10.1); TRIGLYCERIDES 216 MG/DL (<150); VLDL CHOLESTEROL 43 MG/DL (5-40)
[2020-01-30 05:30] LABS: GLUCOSE 166 MG/DL (70-105); TOTAL PROTEIN 6.1 GM/DL (6.4-8.2)
[2020-01-30 05:31] LABS: CARBON DIOXIDE 24 MMOL/L (21-32)
[2020-01-30 05:32] LABS: BILIRUBIN,TOTAL 0.2 MG/DL (0.1-1.0)
[2020-01-30 05:33] LABS: ALKALINE PHOSPHATASE 73 U/L (40-136); CREATININE SERUM 0.85 MG/DL (0.60-1.30); GFR ESTIMATED > 60
[2020-01-30 05:34] LABS: CHOLESTEROL 182 MG/DL (< 200)
[2020-01-30 05:35] LABS: BUN/CREATININE RATIO 12
[2020-01-30 05:36] LABS: HDL CHOLESTEROL 33 MG/DL (40-60)
[2020-01-30 05:37] LABS: ALANINE AMINOTRANSFERASE 22 U/L (0-55)
[2020-01-30 08:50] VITALS: BP 155/75
[2020-01-30] MEDS: CLOPIDOGREL 75 MG (PLAVIX) TABLET PO SCH (09:40)
[2020-01-30] MEDS: ASPIRIN E.C. 81 MG (ECOTRIN) TAB PO SCH (09:40)
[2020-01-30] MEDS ORDERED: ENOXAPARIN 60 MG/0.6 ML (LOVENOX) SYR SC SCH (10:15)
--- NOTE | 2020-01-30 10:30 | History & Physical-Hospitalist ---
History of Present Illness HPI/Chief Complaint CC: Chest Pain HPI: This is a 64yoWF who is chronically debilitated who receives most of her specialty care over at [facility], most recent was stent placement by Dr. Duggan six weeks ago who presented to the hospital with chest pain and lactic acidosis. Pt was placed on gentle IV fluid, placed on Cefepime empirically but chest x ray revealed no pneumonia but she reports CT scan at [facility] showed pneumonia but I reviewed the [facility] chart and don't see any type of imaging recently especially last week. Pt is a Covid rule out, Covid swab is pending and her lactic acid is improved at 1.4. Lovenox will be initiated for DVT prophylaxis. I have consulted Dr. Kramer to review the case since this appears to be a very mysterious situation and although she is 64 she appears to be significantly older than that and chronically debilitated. Source: patient, RN/MD Exam Limitations: no limitations Date Seen 01/30/20 Time Seen by a Provider: 08:00 Attending Physician Emma Leonard MD [facility] [place] Referring Physician Date of Admission Jan 29, 2020 at 21:06 Home Medications & Allergies Home Medications Reviewed patient Home Medication Reconciliation performed by pharmacy medication reconciliations pharmacy technician and/or nursing. Patients Allergies have been reviewed. Allergies Allergies Coded Allergies methylprednisolone (Verified Allergy, Mild, 11/05/18) Penicillins (Unverified Allergy, Unknown, 11/05/18) atorvastatin (Verified Allergy, Unknown, 11/05/18) isosorbide (Verified Allergy, Unknown, 11/05/18) ketorolac (Verified Allergy, Unknown, ITCHING, 11/05/18) promethazine (Unverified Allergy, Unknown, hallucinations, 11/05/18) venom-honey bee (Unverified Allergy, Unknown, 11/05/18) Uncoded Allergies TAPE ( Allergy, Unknown, 08/16/13) Past Bnfznjp-Ledjmf-Axqidi Hx Past Med/Social Hx: Reviewed Nursing Past Med/Soc Hx, Reviewed and Corrections made Patient Social History Marrital Status: single Employed/Student: unemployed Alcohol Use: Denies Use Recreational Drug Use: No Smoking Status: Never a Smoker Type Used: Cigarettes 2nd Hand Smoke Exposure: Yes Recent Foreign Travel: No Contact w/other who traveled: No Recent Infectious Disease Expo: No Immunizations Up To Date Tetanus Booster (TDap): Less than 5yrs Pediatric: Yes Date of Pneumonia Vaccine: Jan 09, 2017 Date of Influenza Vaccine: May 06, 2012 Seasonal Allergies Seasonal Allergies: No Past Medical History Surgeries: Appendectomy, Cardiac, Coronary Stent, Gallbladder, Hysterectomy, Orthopedic, Thyroidectomy Respiratory: COPD, Sleep Apnea Currently Using CPAP: No Currently Using BIPAP: No Cardiac: Angina, Coronary Artery Disease, Deep Vein Thrombosis, High Cholesterol, Hypertension, Peripheral Vascular, Syncope Neurological: Headaches /Migraines, Neuropathy Reproductive: Yes (FIBROIDS, CHRONIC PELVIC PAIN ) Sexually Transmitted Disease: No HIV/AIDS: No Hysterectomy Genitourinary: Bladder Infection, Kidney Stones Gastrointestinal: Gastroesophageal Reflux, Chronic Constipation, Gall Bladder Disease Musculoskeletal: Degenerate Disk Disease, Arthritis, Back Injury, Chronic Back Pain, Spasms Endocrine: Hypothyroidsim Loss of Vision: Bilateral Hearing Impairment: Denies Cancer: Colon Psychosocial: Depression History of Blood Disorders: Yes (BLOOD CLOTS-DVT/P.E.'S) Adverse Reaction to Blood Mathias: No Family History Reviewed Nursing Family Hx Arthritis G8 SISTER Cardiovascular disease 03 FATHER Colon cancer 03 MOTHER Completed stroke 03 MOTHER Hypertension 03 MOTHER G8 BROTHER Myocardial infarction 03 MOTHER Thyroid disease G8 SISTER Review of Systems Constitutional: see HPI, malaise, weakness Cardiovascular: see HPI, chest pain Physical Exam Physical Exam Vital Signs Vital Signs - First Documented 01/29/20 01/29/20 01/29/20 18:58 19:43 23:17 Temp 36.3 Pulse 82 Resp 22 B/P (MAP) 143/73 (96) Pulse Ox 95 O2 Delivery Room Air FiO2 21 Capillary Refill : NONELess Than 3 Seconds Height, Weight, BMI Height: 5'2.00" Weight: 297lbs. 8.0oz. 134.878337rf; 55.87 BMI Method:Stated General Appearance: No Apparent Distress, Anxious, Chronically ill Eyes: Right Eye Normal Inspection, Right Eye PERRL HEENT: PERRL/EOMI, Normal ENT Inspection, Pharynx Normal, Moist Mucous Membranes Neck: Full Range of Motion, Normal Inspection, Non Tender Respiratory: Normal Breath Sounds Cardiovascular: Regular Rate, Rhythm, No Edema, No Gallop, No JVD, No Murmur Gastrointestinal: Normal Bowel Sounds, No Organomegaly, No Pulsatile Mass, Non Tender, Soft Back: Normal Inspection, No CVA Tenderness, No Vertebral Tenderness Extremity: Normal Capillary Refill, Normal Inspection, Normal Range of Motion, Non Tender, No Calf Tenderness, No Pedal Edema Neurologic/Psychiatric: Alert, Oriented x3, No Motor/Sensory Deficits, security tester II- XII Norm as Tested, Depressed Affect Skin: Normal Color, Warm/Dry Lymphatic: No Adenopathy Results Results/Procedures Labs Laboratory Tests 01/29/20 19:10 01/30/20 05:00 Patient resulted labs reviewed. Assessment/Plan Admission Diagnosis Assessment: Chest pain Lactic acidosis Recent pneumonia Recent stents placed [address]uggan at [facility]; Dr. Kramer consult Review [facility] scan from [facility] Lovenox for DVT prophylaxis Admission Status: Observation Diagnosis/Problems Diagnosis/Problems (1) Chest pain Qualifiers: Chest pain type: unspecified Qualified Codes: R07.9 - Chest pain, unspecified (2) Lactic acidosis Status: Acute (3) Person under investigation for COVID-19 (4) Nausea Status: Acute (5) Urinary tract infection Status: Acute Clinical Quality Measures DVT/VTE Risk/Contraindication: Risk Factor Score Per Nursin RFS Level Per Nursing on Admit: 4+=Very High HUMA JARA DO Jan 30, 2020 10:30
[2020-01-30] MEDS: LACTATED RINGERS 1,000 ML IV SCH ×2 (11:20→22:13)
[2020-01-30] MEDS: HYDROcodone/APAP 7.5 MG/325 MG (LORTAB, LORCET PLUS) TABLET PO PRN (11:21)
[2020-01-30] MEDS ORDERED: ROSU5TAB13 PO (11:38)
[2020-01-30] MEDS ORDERED: WARF-48 PO (11:38)
[2020-01-30] MEDS ORDERED: CLOP75TA69 PO (11:38)
[2020-01-30] MEDS ORDERED: DILT120C53 PO (11:38)
[2020-01-30] MEDS ORDERED: CARB15DR2 OU (11:38)
[2020-01-30] MEDS ORDERED: ASPI-1238 PO (11:38)
--- NOTE | 2020-01-30 11:39 | NUR ---
SPOKE WITH THE PT (I CALLED HER ROOM PHONE) AND WENT THRU THE EXT MED HISTORY TO COMPLETE THE MED REC LOVENOX 120MG AND OMEPRAZOLE 20MG BOTH ARE ON THE EXT MED HISTORY BUT PT SAYS SHE IS NO LONGER TAKING EITHER OF THEM WARFARIN 5MG- PT TAKES 5MG ON THU,THU,THU,,THU & THU AND 7.5MG (1& OF A 5MG TAB) ON MONDAYS ONLY OTC MEDS: ASPIRIN 81MG TYLENOL REFRESH
--- NOTE | 2020-01-30 13:30 | Pulmonary Consultation ---
History of Present Illness History of Present Illness Date Seen by Provider: Jan 30, 2020 Time Seen by Provider: 13:25 Date of Admission History of Present Illness 64yo with recent pneumonia earlier this week dx per PCP (Imaging was done in [place] presented to ED secondary to acute 7/10 CP from back to front.She also complains of nausea. She is s/p heart cath with stent placement 5 wks ago. No fevers. Sp02 is 94% on RA. She has no leukocytosis and CXR is clear. DDimer is negative. Allergies and Home Medications Allergies Coded Allergies: methylprednisolone (Verified Allergy, Mild, 11/05/18) Penicillins (Unverified Allergy, Unknown, 11/05/18) atorvastatin (Verified Allergy, Unknown, 11/05/18) isosorbide (Verified Allergy, Unknown, 11/05/18) ketorolac (Verified Allergy, Unknown, ITCHING, 11/05/18) promethazine (Unverified Allergy, Unknown, hallucinations, 11/05/18) venom-honey bee (Unverified Allergy, Unknown, 11/05/18) Uncoded Allergies: TAPE (Allergy, Unknown, 08/16/13) Home Medications Acetaminophen 500 Mg Tablet, 500-1,000 MG PO Q8H PRN for PAIN-MILD (1-4), (Reported) Albuterol Sulfate 18 Gm Hfa.aer.ad, 1 PUFF INH Q4H PRN for SHORTNESS OF BREATH, (Reported) Aspirin 81 Mg Tablet.dr, 81 MG PO HS, (Reported) Carboxymethylcellulos/Glycerin 15 Ml Drops, 2 DROPS OU PRN PRN for DRY EYES, (Reported) Clopidogrel Bisulfate 75 Mg Tablet, 75 MG PO HS, (Reported) Diltiazem HCl 120 Mg Cap.er.24h, 120 MG PO HS, (Reported) Levothyroxine Sodium 150 Mcg Tablet, 150 MCG PO HS, (Reported) Rosuvastatin Calcium 5 Mg Tablet, 5 MG PO HS, (Reported) Warfarin Sodium 5 Mg Tablet, 5 MG PO MARIE,TU,WE,CECILLE,FR,SAT, (Reported) TAKES 1 (5MG) TAB ON MARIE,TU,WE,CECILLE,FR &SAT TAKES 1 & (5MG) TABS ON MON Warfarin Sodium 5 Mg Tablet, 7.5 MG PO MON, (Reported) TAKES 1 (5MG) TAB ON MARIE,TU,WE,CECILLE,FR &SAT TAKES 1 & (5MG) TABS ON MON Past Mbepsyb-Xibrdq-Ohwdlv Hx Past Med/Social Hx: Reviewed Nursing Past Med/Soc Hx, Reviewed and Corrections made Patient Social History Alcohol Use: Denies Use Recreational Drug Use: No Smoking Status: Never a Smoker Type Used: Cigarettes 2nd Hand Smoke Exposure: Yes Recent Foreign Travel: No Contact w/Someone Who Travel: No Recent Infectious Disease Expo: No Physical Abuse: No Sexual Abuse: No Immunizations Up To Date Tetanus Booster (TDap): Less than 5yrs PED Vaccines UTD: Yes Date of Pneumonia Vaccine: Jan 09, 2017 Date of Influenza Vaccine: May 06, 2012 Seasonal Allergies Seasonal Allergies: No Past Medical History Surgeries: Yes Appendectomy, Cardiac, Coronary Stent, Gallbladder, Hysterectomy, Orthopedic, Thyroidectomy Respiratory: Yes (HAS CPAP--DOES NOT USE ON REGULAR BASIS; P.E. X2) Asthma, Pulmonary Embolism, Sleep Apnea Currently Using CPAP: No Currently Using BIPAP: No Cardiac: Yes (P.E. 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 Sexually Transmitted Disease: No HIV/AIDS: No Genitourinary: Yes Bladder Infection, Kidney Stones Gastrointestinal: Yes (S/P GENI) Gastroesophageal Reflux, Chronic Constipation, Gall Bladder Disease Musculoskeletal: Yes Degenerate Disk Disease, Arthritis, Back Injury, Chronic Back Pain, Spasms Endocrine: Yes (MORBID OBESITY; THYROIDECTOMY) Hypothyroidsim HEENT: Yes Loss of Vision: Bilateral Hearing Impairment: Denies Cancer: No Colon Psychosocial: No Depression Integumentary: No Blood Disorders: Yes (BLOOD CLOTS-DVT/P.E.'S) Adverse Reaction/Blood Tranf: No Family Medical History Reviewed Nursing Family Hx Arthritis G8 SISTER Cardiovascular disease 03 FATHER Colon cancer 03 MOTHER Completed stroke 03 MOTHER Hypertension 03 MOTHER G8 BROTHER Myocardial infarction 03 MOTHER Thyroid disease G8 SISTER Review of Systems Time Seen by Provider: 13:38 Sepsis Event Evaluation Height, Weight, BMI Height: 5'2.00" Weight: 297lbs. 8.0oz. 134.549161le; 55.87 BMI Method:Stated Exam Exam Vital Signs Date Time Temp Pulse Resp B/P (MAP) Pulse Ox O2 Delivery O2 Flow Rate FiO2 01/30/20 08:50 36.2 82 18 155/75 (101) 94 Room Air 01/30/20 08:00 94 Room Air 01/30/20 07:00 62 01/30/20 03:03 36.2 67 18 113/63 (80) 96 Room Air 01/30/20 01:08 60 01/30/20 00:14 96 Room Air 01/29/20 23:45 36.5 60 18 106/64 (78) 95 Room Air 01/29/20 23:18 66 01/29/20 23:17 36.3 70 96 21 01/29/20 22:11 36.7 80 18 115/70 92 Room Air 01/29/20 22:11 92 Room Air 01/29/20 21:49 36.3 70 18 146/78 (95) 96 Room Air 01/29/20 19:43 36.3 75 20 117/84 95 01/29/20 19:27 36.3 01/29/20 18:58 36.3 82 22 143/73 (96) Room Air I & O 01/30/20 07:00 Intake Total 2592 ml Balance 2592 ml Height & Weight Height: 5'2.00" Weight: 297lbs. 8.0oz. 134.137727ya; 55.87 BMI Method:Stated General Appearance: No Apparent Distress HEENT: PERRL/EOMI, TMs Normal, Normal ENT Inspection, Pharynx Normal, Moist Mucous Membranes Neck: Full Range of Motion, Normal Inspection, Non Tender Respiratory: Normal Breath Sounds Cardiovascular: Regular Rate, Rhythm Capillary Refill: Less Than 3 Seconds Extremity: Normal Capillary Refill, Normal Inspection, Normal Range of Motion, Non Tender, No Calf Tenderness, No Pedal Edema Neurologic/Psychiatric: Alert, Oriented x3 Skin: Normal Color, Warm/Dry Lymphatic: No Adenopathy Results Lab Laboratory Tests 01/29/20 19:10 01/30/20 05:00 Assessment/Plan Assessment/Plan Dyspnea -Doubt PE. She has negative DDimer and theraputic on Coumadin. -CXR is negative -COVID is pending -Influenza is negative CP s/p cath with stents placed 5wks ago at [facility] Metabolic Lactic acidosis probably secondary to dehydration -Normal WBC -Does not appear to be on Metformin CATERINA SHAH DO Jan 30, 2020 13:30
[2020-01-30 13:51] VITALS: BP 155/75
[2020-01-30 15:58] VITALS: BP 119/66
--- NOTE | 2020-01-30 17:32 | Consultation-Cardiology ---
HPI-Cardiology Cardiology Consultation: Date of Consultation 01/30/20 Date of Admission Attending Physician Emma Leonard MD Admitting Physician [facility] Consulting Physician Danielle RODRIGUEZ MD HPI: Time Seen by a Provider: 11:00 Chief Complaint: Chest pain This is a 64-year-old lady who presents with bilateral chest pain. She has history of recent pneumonia which is getting worse. Substernal chest pain. 11/17. Sharp. Especially when breathing. No exacerbating or relieving factors. She has history of coronary artery disease with PCI done at [facility] 5 weeks ago. She denies active smoking. Pertinent family history is negative. Review of Systems-Cardiology Review of Systems Constitutional: As described under HPI; No As described under HPI, No no symptoms reported, No chills, No fever, No lightheadedness Eyes: No As described under HPI, No no symptoms reported, No blindness, No blurred vision, No contact lenses, No drainage, No decreased acuity, No foreign body sensation, No pain, No vision change Ears/Nose/Throat: No As described under HPI, No no symptoms reported, No chronic hearing loss, No ear discharge, No ear pain, No nasal drainage, No ulcerations Respiratory: No no symptoms reported; As described under HPI; No As described under HPI, No cough, No orthopnea, No shortness of breath, No SOB with excertion Cardiovascular: No no symptoms reported; As described under HPI; No As described under HPI; chest pain; No edema, No irregular heart rate, No lightheadedness, No palpitations Gastrointestinal: No no symptoms reported, No As described under HPI, No abdomen distended, No abdominal pain, No blood streaked bowels, No constipation, No diarrhea, No nausea, No vomiting, No stool coloration changes Genitourinary: No As described under HPI, No burning, No dysuria, No discharge, No frequency, No flank pain, No hematuria, No urgency : Yes : No Skin: No rash, No skin related problems, No ulcerations Psychiatric/Neurological: No anxiety, No depression, No seizure, No focal weakness, No syncope Hematologic: No bleeding abnormalities All Other Systems Reviewed Negative Unless Noted: Yes HQY-Tsrphb-Lvknrv Hx Patient Social History Marrital Status: single Employed/Student: unemployed Alcohol Use: Denies Use Recreational Drug Use: No Smoking Status: Never a Smoker Type Used: Cigarettes 2nd Hand Smoke Exposure: Yes Recent Foreign Travel: No Recent Infectious Disease Expo: No Immunizations Up To Date Tetanus Booster (TDap): Less than 5yrs Date of Pneumonia Vaccine: Jan 09, 2017 Date of Influenza Vaccine: May 06, 2012 Past Medical History PMH As described under Assessment. Family Medical History Family History: Arthritis G8 SISTER Cardiovascular disease 03 FATHER Colon cancer 03 MOTHER Completed stroke 03 MOTHER Hypertension 03 MOTHER G8 BROTHER Myocardial infarction 03 MOTHER Thyroid disease G8 SISTER Allergies and Home Medications Allergies Coded Allergies: methylprednisolone (Verified Allergy, Mild, 11/05/18) Penicillins (Unverified Allergy, Unknown, 11/05/18) atorvastatin (Verified Allergy, Unknown, 11/05/18) isosorbide (Verified Allergy, Unknown, 11/05/18) ketorolac (Verified Allergy, Unknown, ITCHING, 11/05/18) promethazine (Unverified Allergy, Unknown, hallucinations, 11/05/18) venom-honey bee (Unverified Allergy, Unknown, 11/05/18) Uncoded Allergies: TAPE (Allergy, Unknown, 08/16/13) Home Medications Acetaminophen 500 Mg Tablet, 500-1,000 MG PO Q8H PRN for PAIN-MILD (1-4), (Reported) Albuterol Sulfate 18 Gm Hfa.aer.ad, 1 PUFF INH Q4H PRN for SHORTNESS OF BREATH, (Reported) Aspirin 81 Mg Tablet.dr, 81 MG PO HS, (Reported) Carboxymethylcellulos/Glycerin 15 Ml Drops, 2 DROPS OU PRN PRN for DRY EYES, (Reported) Cefdinir 300 Mg Capsule, 300 MG PO BID Prescribed by: HUMA JARA on 02/01/20 1041 Clopidogrel Bisulfate 75 Mg Tablet, 75 MG PO HS, (Reported) Diltiazem HCl 120 Mg Cap.er.24h, 120 MG PO HS, (Reported) Hydrocodone Bit/Acetaminophen 1 Ea Tablet, 1 EA PO Q6H PRN for PAIN-MODERATE (5- 7) Prescribed by: HUMA JARA on 02/01/20 1042 Levothyroxine Sodium 150 Mcg Tablet, 150 MCG PO HS, (Reported) Rosuvastatin Calcium 5 Mg Tablet, 5 MG PO HS, (Reported) Warfarin Sodium 5 Mg Tablet, 5 MG PO MARIE,TU,WE,CECILLE,FR,SAT, (Reported) TAKES 1 (5MG) TAB ON MARIE,TU,WE,CECILLE,FR &SAT TAKES 1 & (5MG) TABS ON MON Warfarin Sodium 5 Mg Tablet, 7.5 MG PO MON, (Reported) TAKES 1 (5MG) TAB ON MARIE,TU,WE,CECILLE,FR &SAT TAKES 1 & (5MG) TABS ON MON Patient Home Medication List Home Medication List Reviewed: Yes Physical Exam-Cardiology Physical Exam Vital Signs/I&O Capillary Refill : NONELess Than 3 Seconds Constitutional: appears stated age, AAO x 3; No apparent distress; well- developed, well-nourished HEENT: PERRL; No discharge; hearing is well preserved, oral hygience is good; No ulceration, No xanthelasmas are seen Neck: No carotid bruit; carotid pulses are 2 + bilaterally Respiratory: chest is bilaterally symmetric, lungs clear to auscultation Cardiovascular: regular rate-rhythm, S1 and S2 Gastrointestinal: soft, audible bowel sounds; No spleenomegaly Rectal: deferred Extremities: normal range of motion, non-tender, normal inspection; No clubbing, No cyanosis; no lower extremity edema bilateral; No significant edema Neurologic/Psychiatric: no motor/sensory deficits, alert, normal mood/affect, oriented x 3, power is 5/5 both on sides Skin: normal color, warm/dry Data Review Labs Microbiology 01/29/20 Urine Culture - Final, Complete 3 or more isolates 01/29/20 Blood Culture - Final, Complete No growth 01/29/20 Influenza Types A,B Antigen (JOSÉ ANTONIO) - Final, Complete A/P-Cardiology Assessment/Admission Diagnosis Pneumonia, sepsis, CAD, recent PCI, Chest discomfort, Lactic acidosis, Plan Pneumonia, sepsis, defer to the primary team. CAD, recent PCI, continue dual antiplatelet therapy. Chest discomfort, serial troponin. EKG did not reveal any acute ST-T wave abnormalities. Lactic acidosis, likely secondary to pneumonia. Thank you for your consultation. Please call me if you have any questions. Darrick Rodriguez MD, FACP, FACC, FSCAI, FHRS, CCDS Interventional Cardiology Cardiac Electrophysiology Vascular Medicine and Endovascular Interventions Clinical Quality Measures DVT/VTE Risk/Contraindication: Risk Factor Score Per Nursin RFS Level Per Nursing on Admit: 4+=Very High Danielle RODRIGUEZ MD Jan 30, 2020 17:32
[2020-01-30 19:40] VITALS: BP 121/75
[2020-01-30] MEDS: RT-ALBUTEROL INHALER HFA (VENTOLIN HFA) 18 GM IH SCH (22:54)
[2020-01-30 23:02] VITALS: BP 126/73
[2020-01-31] VITALS (7 sets, daily range): BP systolic 104–137; BP diastolic 60–80
[2020-01-31] MEDS: morphine INJ 4 MG/ML 1 ML (VIAL/SYRINGE) IV PRN (00:08)
--- NOTE | 2020-01-31 00:22 | NUR ---
COVID RESULTS CAME BACK NEGATIVE. NOTIFIED DR. JARA. ORDER RECEIVED TO TAKE PT OUT OF ISOLATION.
[2020-01-31] MEDS: CEFEPIME INJECTION 1,000 MG in WATER (STERILE) FOR INJECTION 10 ML IV SCH ×4 (03:51→20:43)
[2020-01-31 05:06] LABS: BASOPHILS % (AUTO) 0 % (0-10); EOSINOPHILS # (AUTO) 0.1 10^3/uL (0.0-0.3); EOSINOPHILS % (AUTO) 2 % (0-10); HEMATOCRIT 39 % (35-52); HEMOGLOBIN 11.9 G/DL (11.5-16.0); LYMPHOCYTES # (AUTO) 1.4 X 10^3 (1.0-4.0); LYMPHOCYTES % (AUTO) 22 % (12-44); MEAN CORPUSCULAR HEMOGLOBIN 29 PG (25-34); MEAN CORPUSCULAR HGB CONC 31 G/DL (32-36); MEAN CORPUSCULAR VOLUME 95 FL (80-99); MEAN PLATELET VOLUME 10.7 FL (7.4-10.4); MONOCYTES # (AUTO) 0.5 X 10^3 (0.0-1.0); MONOCYTES % (AUTO) 8 % (0-12); NEUTROPHILS # (AUTO) 4.2 X 10^3 (1.8-7.8); NEUTROPHILS % (AUTO) 69 % (42-75); PLATELET COUNT 185 10^3/uL (130-400); WHITE BLOOD COUNT 6.2 10^3/uL (4.3-11.0)
[2020-01-31 05:17] LABS: ALBUMIN 3.5 GM/DL (3.2-4.5); CHLORIDE 102 MMOL/L (98-107); POTASSIUM 4.3 MMOL/L (3.6-5.0); SODIUM 139 MMOL/L (135-145)
[2020-01-31 05:19] LABS: CALCIUM 8.5 MG/DL (8.5-10.1)
[2020-01-31 05:20] LABS: GLUCOSE 138 MG/DL (70-105); TOTAL PROTEIN 6.5 GM/DL (6.4-8.2)
[2020-01-31 05:21] LABS: CARBON DIOXIDE 27 MMOL/L (21-32)
[2020-01-31 05:22] LABS: BILIRUBIN,TOTAL 0.3 MG/DL (0.1-1.0)
[2020-01-31 05:23] LABS: ALKALINE PHOSPHATASE 85 U/L (40-136); CREATININE SERUM 0.87 MG/DL (0.60-1.30); GFR ESTIMATED > 60
[2020-01-31 05:25] LABS: BUN/CREATININE RATIO 11
[2020-01-31 05:26] LABS: ALANINE AMINOTRANSFERASE 25 U/L (0-55)
[2020-01-31] MEDS: RT-ALBUTEROL INHALER HFA (VENTOLIN HFA) 18 GM IH SCH ×2 (08:19→19:19)
[2020-01-31] MEDS: CLOPIDOGREL 75 MG (PLAVIX) TABLET PO SCH (08:23)
[2020-01-31] MEDS: ASPIRIN E.C. 81 MG (ECOTRIN) TAB PO SCH (08:23)
--- NOTE | 2020-01-31 11:32 | Progress Note - Hospitalist ---
Subjective HPI/CC On Admission Date Seen by Provider: Jan 31, 2020 Time Seen by Provider: 09:00 CC: Chest Pain HPI: This is a 64yoWF who is chronically debilitated who receives most of her specialty care over at [facility], most recent was stent placement by Dr. Duggan six weeks ago who presented to the hospital with chest pain and lactic acidosis. Pt was placed on gentle IV fluid, placed on Cefepime empirically but chest x ray revealed no pneumonia but she reports CT scan at [facility] showed pneumonia but I reviewed the [facility] chart and don't see any type of imaging recently especially last week. Pt is a Covid rule out, Covid swab is pending and her lactic acid is improved at 1.4. Lovenox will be initiated for DVT prophylaxis. I have consulted Dr. Kramer to review the case since this appears to be a very mysterious situ ation and although she is 64 she appears to be significantly older than that and chronically debilitated. Subjective/Events-last exam Pt doing better Heplocking IV fluid Will need PT and OT to evaluate her functioning No longer having chest pain Reviewed case with Dr. Kramer Reports the inhaler he gave her made her lungs burn so she is no longer taking that Pleurisy is the likely culprit of the source of her chest pain Will be able to discharge later today or in the morning Review of Systems General: Fatigue, Malaise Neurological: Weakness Focused Exam Lactate Level 01/29/20 19:10: Lactic Acid Level 3.76*H 01/29/20 21:14: Lactic Acid Level 2.34*H 01/29/20 23:13: Lactic Acid Level 1.40 Objective Exam Vital Signs Vital Signs Date Time Temp Pulse Resp B/P (MAP) Pulse Ox O2 Delivery O2 Flow Rate FiO2 01/31/20 19:53 36.4 72 18 134/72 (92) 92 Room Air 01/30/20 13:51 21 Capillary Refill : NONELess Than 3 Seconds General Appearance: No Apparent Distress, WD/WN, Chronically ill, Obese HEENT: PERRL/EOMI, Normal ENT Inspection, Pharynx Normal, Moist Mucous Mem branes Neck: Full Range of Motion, Normal Inspection, Non Tender, Supple, Carotid Bruit Respiratory: Chest Non Tender, Lungs Clear, Normal Breath Sounds, No Accessory Muscle Use, No Respiratory Distress, Decreased Breath Sounds Cardiovascular: Regular Rate, Rhythm, No Edema, No Gallop, No JVD, No Murmur, Normal Peripheral Pulses Gastrointestinal: Normal Bowel Sounds, No Organomegaly, No Pulsatile Mass, Non Tender, Soft Back: Normal Inspection, No CVA Tenderness, No Vertebral Tenderness Extremity: Normal Capillary Refill, Normal Inspection, Normal Range of Motion, Non Tender, No Calf Tenderness, No Pedal Edema Neurologic/Psychiatric: Alert, Oriented x3, No Motor/Sensory Deficits, Normal Mood/Affect Skin: Normal Color, Warm/Dry Lymphatic: No Adenopathy Results/Procedures Lab Laboratory Tests 01/31/20 04:40 Patient resulted labs reviewed. Assessment/Plan Assessment and Plan Assess & Plan/Chief Complaint Assessment: Chest pain Lactic acidosis Recent pneumonia Recent stents placed [address] Duggan at [facility]; Dr. Kramer consult Review CT scan from [facility] Lovenox for DVT prophylaxis 01/31/20: Heplock IV fluid Labs reviewed PT/OT Discharge later today or tomorrow morning Diagnosis/Problems Diagnosis/Problems (1) Chest pain Qualifiers: Chest pain type: unspecified Qualified Codes: R07.9 - Chest pain, unspecified (2) Lactic acidosis Status: Acute (3) Person under investigation for COVID-19 (4) Nausea Status: Acute (5) Urinary tract infection Status: Acute Clinical Quality Measures DVT/VTE Risk/Contraindication: Risk Factor Score Per Nursin RFS Level Per Nursing on Admit: 4+=Very High HUMA JARA DO Jan 31, 2020 11:32
[2020-01-31 11:38] LABS: INR 2.5 (0.8-1.4); PROTHROMBIN TIME PATIENT 27.2 SEC (12.2-14.7)
--- NOTE | 2020-01-31 12:58 | Occupational Therapy Eval ---
OT Evaluation-General/PLF Medical Diagnosis Admission Date Jan 29, 2020 at 21:06 Medical Diagnosis: Chest pain/pneumonia Onset Date: Jan 29, 2020 Therapy Diagnosis Therapy Diagnosis: Weakness Height/Weight Height (Feet): 5 Height (Inches): 2.00 Weight (Pounds): 297 Weight (Ounces): 8.0 Precautions Precautions/Isolations: Standard Precautions Weight Bear Status Weight Bearing Restriction: Weight Bearing/Tolerated Referral Physician: Dr. Cullen Referral Reason: Activity Tolerance, Self Care, Evaluation/Treatment, Strengthening/ROM Medical History Additional Medical History Stent placement, hysterectomy, peripheral vascular, coronary stent, DDD Current History Pt. had stents placed 5 weeks ago. Came to ER with SOA and nausea. Reviewed History: Yes Social History Home: Single Level Current Living Status: Alone Entry Into Home: Stairs With Railing Steps Into Home: 3 ADL-Prior Level of Function SCALE: Activities may be completed with or without assistive devices. 4-Janzuvyshz-dvzhnoq completes the activity by him/herself with no assistance from a helper. 5-Set-up or Clean-up Assistance-helper sets up or cleans up; patient completes activity. [place] assists only prior to or following the activity. 4-Supervision or Touching Assistance-helper provides verbal cues and/or touching/steadying and/or contact guard assistance as patient completes ac tivity. Assistance may be provided throughout the activity or intermittently. 3-Partial/Moderate Assistance-helper does LESS THAN HALF the effort. [place] lifts, holds or supports trunk or limbs, but provides less than half the effort. 2-Substantial/Maximal Assistance-helper does MORE THAN HALF the effort. [place] lifts or holds trunk or limbs and provides more than half the effort. 2-Tztpirtxy-eczcjx does ALL the effort. Patient does none of the effort to complete the activity. Or, the assistance of 2 or more helpers is required for the patient to complete the activity. If activity was not attempted, code reason: 7-Patient Refused. 9-Not Applicable-not attempted and the patient did not perform the activity before the current illness, exacerbation or injury. 10-Not Attempted due to Environmental Limitations-(lack of equipment, weather restraints, etc.). 88-Not Attempted due to Medical Conditions or Safety Concerns. ADL PLOF Comments Pt. was fully independent with all daily skills. 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 Pt. does not have a walker, but does have a wheelchair for long community distances. Pt. wears a CPAP at night, but no other oxygen. Self Care: Independent Functional Cognition: Independent DME/Equipment: Bath Chair, Tub/Shower Occupation: Disabled Drive Self: Yes OT Current Status Subjective No pain reported. Pt. states that she is feeling much better. Mental Status/Objective Patient Orientation: Person, Place, Time, Situation Attachments: IV Current Upper Extremity ROM WFL Upper Extremity Strength WFL ADL-Treatment Eating (QC): 6 On/Off Footwear (QC): 6 Toileting Hygiene (QC): 6 Other Treatments Pt. up in chair when OT entered room. OT and pt. talked in length regarding home set up, assist at home, and current needs. Pt. states that she is feeling much better than she was when she came to ER. She is currently unplugging her own IV and ambulating to and from the bathroom. Pt. began to demonstrate this when OT in the room. Pt. verbalizes that she is able to put her own socks on, toilet herself, and is able to walk to and from the door multiple times. She declines showering at this time, and states that she has items set up for her in the bathroom to use to sponge bathe when she is ready. Pt. reports that she has a boyfriend that is very helpful, and can assist in any way. Pt. does not need OT services at this time. All needs are met for pt. and she is up in chair in room. Education OT Patient Education: Correct positioning, Modified ADL techniques, Progress toward Goal/Update tx plan, Purpose of tx/functional activities, Transfer techniques Teaching Recipient: Patient Teaching Methods: Demonstration, Discussion Response to Teaching: Verbalize Understanding, Return Demonstration OT Senior Tax Analyst Goals Senior Tax Analyst Goals Time Frame: Jan 31, 2020 Additional Goals: 1-Demonstrate ADL Tasks, 2-Verbalize Understanding 1=Demonstrate adherence to instructed precautions during ADL tasks. 2=Patient will verbalize/demonstrate understanding of assistive d evices/modifications for ADL. 3=Patient will improve strength/tolerance for activity to enable patient to perform ADL's. Pt. is independent up in room. No OT goals indicated at this time. No further OT needs. OT Education/Plan Problem List/Assessment Assessment: No Skilled OT Needs ID'd Discharge Recommendations Plan/Recommendations: Discontinue OT Therapy Discharge Recommendati: Home & Family Treatment Plan/Plan of Care Treatment,Training & Education: Yes Plan of Care: OTHER Treatment Duration: Jan 31, 2020 Frequency: 1 time per week Time/GCodes Start Time: 11:15 Stop Time: 11:27 Total Time Billed (hr/min): 12 Billed Treatment Time 1, EVL Discharge pt. JULI THOMPSON OT Jan 31, 2020 12:58
--- NOTE | 2020-01-31 13:36 | Pulmonary Progress Note ---
Subjective Time Seen by a Provider: 13:35 Sepsis Event Evaluation Height, Weight, BMI Height: 5'2.00" Weight: 297lbs. 8.0oz. 134.743075su; 59.38 BMI Method:Stated Focused Exam Lactate Level 01/29/20 19:10: Lactic Acid Level 3.76*H 01/29/20 21:14: Lactic Acid Level 2.34*H 01/29/20 23:13: Lactic Acid Level 1.40 Exam Exam Vital Signs Date Time Temp Pulse Resp B/P (MAP) Pulse Ox O2 Delivery O2 Flow Rate FiO2 01/31/20 12:36 66 01/31/20 12:00 35.7 69 20 137/64 (88) 90 Room Air 01/31/20 08:19 92 Room Air 01/31/20 08:00 36.4 62 16 135/78 (97) 93 Room Air 01/31/20 08:00 Room Air 01/31/20 06:44 62 01/31/20 03:54 36.4 68 15 128/67 (87) 93 Room Air 01/31/20 01:00 62 01/31/20 00:15 61 17 130/80 (97) 92 Room Air 01/30/20 23:02 36.6 63 16 126/73 (90) 94 Room Air 01/30/20 22:59 94 Room Air 01/30/20 20:00 Room Air 01/30/20 19:40 36.4 73 18 121/75 (90) 95 Room Air 01/30/20 19:00 80 01/30/20 15:58 36.5 66 18 119/66 (83) 94 Room Air 01/30/20 13:51 36.2 70 93 21 01/30/20 13:39 93 Room Air I & O 01/31/20 07:00 Intake Total 4552 ml Output Total 1550 ml Balance 3002 ml Height & Weight Height: 5'2.00" Weight: 297lbs. 8.0oz. 134.351978vb; 59.38 BMI Method:Stated General Appearance: No Apparent Distress, WD/WN HEENT: PERRL/EOMI, TMs Normal, Normal ENT Inspection, Pharynx Normal, Moist Mucous Membranes Neck: Full Range of Motion, Normal Inspection, Non Tender, Supple, Carotid Bruit Respiratory: Chest Non Tender, Lungs Clear, Normal Breath Sounds, No Accessory Muscle Use, No Respiratory Distress Cardiovascular: Regular Rate, Rhythm, No Edema, No Gallop, No JVD, No Murmur, Normal Peripheral Pulses Capillary Refill: Less Than 3 Seconds Extremity: Normal Capillary Refill, Normal Inspection, Normal Range of Motion, Non Tender, No Calf Tenderness, No Pedal Edema Neurologic/Psychiatric: Alert, Oriented x3, No Motor/Sensory Deficits, Normal Mood/Affect Skin: Normal Color, Warm/Dry Lymphatic: No Adenopathy Results Lab Laboratory Tests 01/29/20 19:10 01/30/20 05:00 01/31/20 04:40 Assessment/Plan Assessment/Plan Dyspnea -Doubt PE. She has negative DDimer and theraputic on Coumadin. -CXR is negative -COVID is pending -Influenza is negative CP s/p cath with stents placed 5wks ago at [facility] Metabolic Lactic acidosis probably secondary to dehydration- improving -Normal WBC -Does not appear to be on Metformin CATERINA SHAH DO Jan 31, 2020 13:36
--- NOTE | 2020-01-31 14:27 | Physical Therapy Evaluation ---
PT Evaluation-General Medical Diagnosis Admission Date Jan 29, 2020 at 21:06 Medical Diagnosis: Chest pain/pneumonia Onset Date: Jan 29, 2020 Therapy Diagnosis Therapy Diagnosis: debility Height/Weight Height (Feet): 5 Height (Inches): 2.00 Weight (Pounds): 297 Weight (Ounces): 8.0 Precautions Precautions/Isolations: Standard Precautions Referral Physician: Dr. Cullen Reason for Referral: Evaluation/Treatment Medical History Pertinent Medical History: CAD, HTN, Neuropathy, PVD, Smoking Additional Medical History morbid obesity Current History ER secondary to bilateral CP and SOB Reviewed History: Yes Social History Home: Single Level Current Living Status: Alone Entry Into Home: Stairs With Railing PT Steps Into Home: 3 Prior Prior Level of Function SCALE: Activities may be completed with or without assistive devices. 6-Bsuqjimxgm-zgdxnbb completes the activity by him/herself with no assistance from a helper. 5-Set-up or Clean-up Assistance-helper sets up or cleans up; patient completes activity. [place] assists only prior to or following the activity. 4-Supervision or Touching Assistance-helper provides verbal cues and/or touching/steadying and/or contact guard assistance as patient completes activity. Assistance may be provided throughout the activity or intermittently. 3-Partial/Moderate Assistance-helper does LESS THAN HALF the effort. [place] lifts, holds or supports trunk or limbs, but provides less than half the effort. 2-Substantial/Maximal Assistance-helper does MORE THAN HALF the effort. [place] lifts or holds trunk or limbs and provides more than half the effort. 5-Kfpkiuitb-ofvgjw does ALL the effort. Patient does none of the effort to complete the activity. Or, the assistance of 2 or more helpers is required for the patient to complete the activity. If activity was not attempted, code reason: 7-Patient Refused. 9-Not Applicable-not attempted and the patient did not perform the activity before the current illness, exacerbation or injury. 10-Not Attempted due to Environmental Limitations-(lack of equipment, weather restraints, etc.). 88-Not Attempted due to Medical Conditions or Safety Concerns. Bed Mobility: 6 Transfers (B,C,W/C): 6 Gait: 6 Stairs: 6 Wheelchair Mobility: 6 Indoor Mobility (Ambulation): Independent Stairs: Independent Prior Devices Use: Manual wheelchair (for long distances ([employer])), None PT Evaluation-Current Subjective Patient agrees to PT. She reports she does everything on her own and doesn't need PT but agrees to be assessed. Pain Numeric Pain Scale: 0-No Pain Location: No Pain Reported Objective Patient Orientation: Normal For Age ROM/Strength ROM Lower Extremities bilateral LE WFL Strength Lower Extremities 4/5 grossly bilateral LE Integumentary/Posture Integumentary refer to nursing notes Bowel Incontinence: No Bladder Incontinence: No Posture WFL Neuromuscular (Tone, Coordination, Reflexes) grossly intact Sensory Vision: Functional Hearing: Functional Sensation Right Lower Extremit: Impaired Sensation Left Lower Extremity: Impaired Transfers Sit to Lying (QC): 6 Lying to Sitting/Side of Bed(Q: 6 Sit to Stand (QC): 6 Chair/Zua-rc-Zezxv Xfer(QC): 6 Gait Does the Patient Walk?: Yes Mode of Locomotion: Walk Anticipated Mode of Locomotion: Walk Walk 10 feet (QC): 6 Walk 50 ft with 2 Turns(QC): 6 Walk 150 ft (QC): 6 Gait Assistive Device: None Comments/Gait Description WBOS Balance Sitting Static: Normal Sitting Dynamic: Normal Standing Static: Normal Standing Dynamic: Normal Assessment/Needs 64 y.o. female, is currently at independent [facility] with all gross motor skills and does not require skilled therapy intervention. Rehab Potential: Fair PT Plan Treatment/Plan Treatment Plan: Discontinue PT, goals met Treatment Duration: Jan 31, 2020 Frequency: 1 time per week Estimated Hrs Per Day: .25 hour per day Patient and/or Family Agrees t: Yes Time/GCodes Time In: 1300 Time Out: 1316 Total Billed Treatment Time: 16 Total Billed Treatment 1 visit [facility] 16 min SANDY DAY PT Jan 31, 2020 14:27
--- NOTE | 2020-01-31 17:51 | Cardiology Progress Note ---
Cardiology SOAP Progress Note Subjective: No acute cardiac complaints. Objective: I&O/Vital Signs Weight (Pounds): 297 Weight (Ounces): 8.0 Weight (Calculated Kilograms): 134.846570 Constitutional: AAO x 3 Respiratory: chest is bilaterally symmetric, lungs clear to auscultation Cardiovascular: regular rate-rhythm, S1 and S2 Gastrointestional: soft, audible bowel sounds Extremities: normal range of motion, non-tender, normal inspection, no lower extremity edema bilateral Neurologic/Psychiatric: no motor/sensory deficits, alert, normal mood/affect, oriented x 3 Skin: normal color, warm/dry Results/Procedures: Labs Microbiology 01/29/20 Urine Culture - Final, Complete 3 or more isolates 01/29/20 Blood Culture - Final, Complete No growth 01/29/20 Influenza Types A,B Antigen (JOSÉ ANTONIO) - Final, Complete A/P: Assessment/Dx: Pneumonia, sepsis, CAD, recent PCI, Chest discomfort, Lactic acidosis, Plan: Pneumonia, sepsis, defer to the primary team. CAD, recent PCI, continue dual antiplatelet therapy. Chest discomfort, serial troponin negative. EKG did not reveal any acute ST-T wave abnormalities. Unlikely coronary related. Okay to discharge to follow-up with primary care physician and outpatient education technician. Lactic acidosis, likely secondary to pneumonia. Thank you for your consultation. Please call me if you have any questions. Darrick Rodriguez MD, FACP, FACC, FSCAI, FHRS, CCDS Interventional Cardiology Cardiac Electrophysiology Vascular Medicine and Endovascular Interventions Focused Exam Lactate Level Danielle RODRIGUEZ MD Jan 31, 2020 17:51
[2020-01-31] MEDS ORDERED: warFARin 5 MG (COUMADIN) TAB PO SCH (18:00)
[2020-01-31] MEDS: HYDROcodone/APAP 7.5 MG/325 MG (LORTAB, LORCET PLUS) TABLET PO PRN (20:44)
[2020-02-01 04:00] VITALS: BP 116/78
[2020-02-01] MEDS: CEFEPIME INJECTION 1,000 MG in WATER (STERILE) FOR INJECTION 10 ML IV SCH ×2 (04:01→08:02)
[2020-02-01 04:54] LABS: BASOPHILS % (AUTO) 0 % (0-10); EOSINOPHILS # (AUTO) 0.1 10^3/uL (0.0-0.3); EOSINOPHILS % (AUTO) 2 % (0-10); HEMATOCRIT 40 % (35-52); HEMOGLOBIN 12.5 g/dL (11.5-16.0); LYMPHOCYTES # (AUTO) 1.8 10^3/uL (1.0-4.0); LYMPHOCYTES % (AUTO) 24 % (12-44); MEAN CORPUSCULAR HEMOGLOBIN 29 pg (25-34); MEAN CORPUSCULAR HGB CONC 31 g/dL (32-36); MEAN CORPUSCULAR VOLUME 94 fL (80-99); MEAN PLATELET VOLUME 10.4 fL (9.0-12.2); MONOCYTES # (AUTO) 0.5 10^3/uL (0.0-1.0); MONOCYTES % (AUTO) 7 % (0-12); NEUTROPHILS % (AUTO) 67 % (42-75); PLATELET COUNT 206 10^3/uL (130-400); WHITE BLOOD COUNT 7.5 10^3/uL (4.3-11.0)
[2020-02-01 05:16] LABS: ALANINE AMINOTRANSFERASE 24 U/L (0-55); ALBUMIN 3.6 GM/DL (3.2-4.5); ALKALINE PHOSPHATASE 81 U/L (40-136); BILIRUBIN,TOTAL 0.3 MG/DL (0.1-1.0); BUN/CREATININE RATIO 13; CALCIUM 8.7 MG/DL (8.5-10.1); CARBON DIOXIDE 28 MMOL/L (21-32); CHLORIDE 102 MMOL/L (98-107); CREATININE SERUM 0.85 MG/DL (0.60-1.30); GFR ESTIMATED > 60; GLUCOSE 130 MG/DL (70-105); POTASSIUM 4.4 MMOL/L (3.6-5.0); SODIUM 140 MMOL/L (135-145); TOTAL PROTEIN 6.7 GM/DL (6.4-8.2)
--- NOTE | 2020-02-01 07:05 | Pulmonary Progress Note ---
Subjective Time Seen by a Provider: 07:03 Subjective/Events-last exam No complications noted. Sepsis Event Evaluation Height, Weight, BMI Height: 5'2.00" Weight: 297lbs. 8.0oz. 134.916309bs; 59.38 BMI Method:Stated Focused Exam Lactate Level 01/29/20 19:10: Lactic Acid Level 3.76*H 01/29/20 21:14: Lactic Acid Level 2.34*H 01/29/20 23:13: Lactic Acid Level 1.40 Exam Exam Vital Signs Date Time Temp Pulse Resp B/P (MAP) Pulse Ox O2 Delivery O2 Flow Rate FiO2 02/01/20 04:00 36.0 85 14 116/78 (91) 97 Room Air 02/01/20 01:00 92 01/31/20 23:46 36.2 64 16 104/60 (75) 95 01/31/20 21:13 36.4 01/31/20 20:00 92 Room Air 01/31/20 19:53 36.4 72 18 134/72 (92) 92 Room Air 01/31/20 19:20 93 Room Air 01/31/20 19:04 77 01/31/20 15:47 36.7 67 18 112/65 (81) 92 Room Air 01/31/20 12:36 66 01/31/20 12:00 35.7 69 20 137/64 (88) 90 Room Air 01/31/20 08:19 92 Room Air 01/31/20 08:00 36.4 62 16 135/78 (97) 93 Room Air 01/31/20 08:00 Room Air I & O 02/01/20 07:00 Intake Total 1560 ml Balance 1560 ml Height & Weight Height: 5'2.00" Weight: 297lbs. 8.0oz. 134.251861vh; 59.38 BMI Method:Stated General Appearance: No Apparent Distress, WD/WN, Chronically ill, Obese HEENT: PERRL/EOMI, Normal ENT Inspection, Pharynx Normal, Moist Mucous Membranes Neck: Full Range of Motion, Normal Inspection, Non Tender, Supple, Carotid Bruit Respiratory: Chest Non Tender, Lungs Clear, Normal Breath Sounds, No Accessory Muscle Use, No Respiratory Distress, Decreased Breath Sounds Cardiovascular: Regular Rate, Rhythm, No Edema, No Gallop, No JVD, No Murmur, Normal Peripheral Pulses Capillary Refill: Less Than 3 Seconds Extremity: Normal Capillary Refill, Normal Inspection, Normal Range of Motion, Non Tender, No Calf Tenderness, No Pedal Edema Neurologic/Psychiatric: Alert, Oriented x3, No Motor/Sensory Deficits, Normal Mood/Affect Skin: Normal Color, Warm/Dry Lymphatic: No Adenopathy Results Lab Laboratory Tests 01/31/20 04:40 02/01/20 04:44 02/01/20 04:45 Assessment/Plan Assessment/Plan Dyspnea -Pt is on RA -Doubt PE. She has negative DDimer and theraputic on Coumadin. -CXR is negative -COVID is Negative -Influenza is negative CP s/p cath with stents placed 5wks ago at [facility] Metabolic Lactic acidosis probably secondary to dehydration- Now Resolved CATERINA SHAH DO Feb 01, 2020 07:05
[2020-02-01 08:00] VITALS: BP 123/79
[2020-02-01] MEDS: RT-ALBUTEROL INHALER HFA (VENTOLIN HFA) 18 GM IH SCH (08:00)
[2020-02-01] MEDS: ASPIRIN E.C. 81 MG (ECOTRIN) TAB PO SCH (08:05)
[2020-02-01] MEDS: CLOPIDOGREL 75 MG (PLAVIX) TABLET PO SCH (08:06)
[2020-02-01] MEDS ORDERED: CEFD300C3 PO (10:41)
[2020-02-01] MEDS ORDERED: HYDR-34 PO (10:41)
--- NOTE | 2020-02-01 10:42 | Discharge Summary ---
Discharge Summary Hospital Course Was the Problem List Reviewed?: Yes Problems/Dx: (1) Chest pain Qualifiers: Qualified Codes: R07.9 - Chest pain, unspecified (2) Lactic acidosis Status: Acute (3) Person under investigation for COVID-19 (4) Nausea Status: Acute (5) Urinary tract infection Status: Acute Hospital Course Date of Admission: Jan 29, 2020 at 21:06 Admission Diagnosis : Family Physician/Provider: Tiny Courtney Aprn Date of Discharge: 02/01/20 Discharge Diagnosis: Assessment: Chest pain Lactic acidosis Recent pneumonia Recent stents placed [address] Duggan at [facility]; Dr. Kramer consult Review CT scan from [facility] Add Lovenox for DVT prophylaxis 01/31/20: Heplock IV fluid Labs reviewed PT/OT Discharge later today or tomorrow morning Hospital Course: Hospital Course: Pt had an uneventful hospital course. She was admitted for chest pain, Covid was negative, all troponins were negative. Dr. Kramer was consulted, reviewed everything and there was no evidence of any recurring issues so we did complete treatment for acute bronchitis and sent the remaining anti biotic in. Pleurisy was completely resolved but I did send it a small supply of pain medication for that and she will have close follow up with her PCP Chaparro Waite. Labs and Pending Lab Test: Laboratory Tests 02/01/20 04:44: White Blood Count 7.5, Red Blood Count 4.28, Hemoglobin 12.5, Hematocrit 40, Mean Corpuscular Volume 94, Mean Corpuscular Hemoglobin 29, Mean Corpuscular Hemoglobin Concent 31L, Red Cell Distribution Width 14.8H, Platelet Count 206, Mean Platelet Volume 10.4, Immature Granulocyte % (Auto) 0, Neutrophils (%) (Auto) 67, Lymphocytes (%) (Auto) 24, Monocytes (%) (Auto) 7, Eosinophils (%) (Auto) 2, Basophils (%) (Auto) 0, Neutrophils # (Auto) 5.0, Lymphocytes # (Auto) 1.8, Monocytes # (Auto) 0.5, Eosinophils # (Auto) 0.1, Basophils # (Auto) 0.0, Immature Granulocyte # (Auto) 0.0 02/01/20 04:45: Sodium Level 140, Potassium Level 4.4, Chloride Level 102, Carbon Dioxide Level 28, Anion Gap 10, Blood Urea Nitrogen 11, Creatinine 0.85, Estimat Glomerular Filtration Rate > 60, BUN/Creatinine Ratio 13, Glucose Level 130H, Calcium Level 8.7, Corrected Calcium 9.0, Total Bilirubin 0.3, Aspartate Amino Transf (AST/SGOT) 23, Alanine Aminotransferase (ALT/SGPT) 24, Alkaline Phosphatase 81, Total Protein 6.7, Albumin 3.6 Microbiology 01/29/20 Urine Culture - Final, Complete 3 or more isolates 01/29/20 Blood Culture - Preliminary, Resulted No growth 01/29/20 Influenza Types A,B Antigen (JOSÉ ANTONIO) - Final, Complete Home Meds Active Cefdinir 300 Mg Capsule 300 Mg PO BID HYDROcodone/APAP 7.5/325 TAB (Acetaminophen/Hydrocodone Bitart) 1 Ea Tablet 1 Ea PO Q6H PRN Reported Refresh Optive Eye Drops (Carboxymethylcellulos/Glycerin) 15 Ml Drops 2 Drops OU PRN PRN Aspirin EC (Aspirin) 81 Mg Tablet.dr 81 Mg PO HS Plavix (Clopidogrel Bisulfate) 75 Mg Tablet 75 Mg PO HS Cartia Xt (Diltiazem HCl) 120 Mg Cap.er.24h 120 Mg PO HS Warfarin Sodium 5 Mg Tablet 7.5 Mg PO MON TAKES 1 (5MG) TAB ON MARIE,TU,WE,CECILLE,FR &SAT TAKES 1 & (5MG) TABS ON MON Rosuvastatin Calcium 5 Mg Tablet 5 Mg PO HS Ventolin Hfa (Albuterol Sulfate) 18 Gm Hfa.aer.ad 1 Puff INH Q4H PRN Acetaminophen 500 Mg Tablet 500-1,000 Mg PO Q8H PRN Warfarin Sodium 5 Mg Tablet 5 Mg PO MARIE,TU,WE,CECILLE,FR,SAT TAKES 1 (5MG) TAB ON MARIE,TU,WE,CECILLE,FR &SAT TAKES 1 & (5MG) TABS ON MON Levothyroxine Sodium 150 Mcg Tablet 150 Mcg PO HS Assessment/Pt Instructions chc 1 week Discharge Planning: <30 minutes discharge planning Discharge Instructions Discharge Diet: No Restrictions Activity as Tolerated: Yes Discharge Physical Examination Vital Signs Vital Signs Date Time Temp Pulse Resp B/P (MAP) Pulse Ox O2 Delivery O2 Flow Rate FiO2 02/01/20 08:00 35.4 83 20 123/79 (94) 95 Room Air 01/30/20 13:51 21 General Appearance: No Apparent Distress, WD/WN, Chronically ill, Obese Respiratory: Normal Breath Sounds Cardiovascular: Regular Rate, Rhythm Neurologic/Psychiatric: Alert, Oriented x3 Allergies: Coded Allergies: methylprednisolone (Verified Allergy, Mild, 11/05/18) Penicillins (Unverified Allergy, Unknown, 11/05/18) atorvastatin (Verified Allergy, Unknown, 11/05/18) isosorbide (Verified Allergy, Unknown, 11/05/18) ketorolac (Verified Allergy, Unknown, ITCHING, 11/05/18) promethazine (Unverified Allergy, Unknown, hallucinations, 11/05/18) venom-honey bee (Unverified Allergy, Unknown, 11/05/18) Uncoded Allergies: TAPE (Allergy, Unknown, 08/16/13) Discharge Summary Date of Admission Jan 29, 2020 at 21:06 Date of Discharge Discharge Date: Feb 01, 2020 Admission Diagnosis Assessment: Chest pain Lactic acidosis Recent pneumonia Recent stents placed [address] Duggan at [facility]; Dr. Kramer consult Review CT scan from [facility] [place] Lovenox for DVT prophylaxis Discharge Diagnosis Assessment: Chest pain Lactic acidosis Recent pneumonia Recent stents placed [address] Duggan at [facility]; Dr. Kramer consult Review CT scan from [facility] Add Lovenox for DVT prophylaxis 01/31/20: Heplock IV fluid Labs reviewed PT/OT Discharge later today or tomorrow morning (1) Chest pain Qualifiers: Qualified Codes: R07.9 - Chest pain, unspecified (2) Lactic acidosis Status: Acute (3) Person under investigation for COVID-19 (4) Nausea Status: Acute (5) Urinary tract infection Status: Acute Clinical Quality Measures DVT/VTE Risk/Contraindication: Risk Factor Score Per Nursin RFS Level Per Nursing on Admit: 4+=Very High HUMA JARA DO Feb 01, 2020 10:42
[2020-02-01 12:13] VITALS: BP 123/79
--- NOTE | 2020-02-01 13:35 | NUR ---
CM/SS: Visited with pt as to plan for discharge Plan: Pt will dismiss to home with no identified services Summary: Pt reports that she is from home and that she does not need anything set up at this time. She reports having a wheelchair and that is all that she needs. She is reminded to follow up with her appointments with her primary doctor and others that are set up for her. She verbalizes understanding. Pt does have a ride home - they are present and will take pt home when appropriate. Pt is wished well.
[2020-02-06] MEDS ORDERED: warFARin 5 MG (COUMADIN) TAB PO SCH (18:00)
== END 2020-02-01 10:40 | disposition home or self-care (01) ==
LOC: EDUNIT# 18:33 → ER 18:34 → 4TH 21:06 → UNDOADMOB 21:06 → 4TH 22:11 → UNDODISOB 02-01 12:40
PROVIDERS: ADMIT Internal Medicine; ATTEND Internal Medicine
DX: R07.9 Chest pain, unspecified (principal); E87.2 Acidosis; N39.0 Urinary tract infection, site not specified; J18.9 Pneumonia, unspecified organism; G47.30 Sleep apnea, unspecified; J45.909 Unspecified asthma, uncomplicated; G43.909 Migraine, unspecified, not intractable, without status migrainosus; E78.00 Pure hypercholesterolemia, unspecified; I25.119 Atherosclerotic heart disease of native coronary artery with unspecified angina pectoris; G89.18 Other acute postprocedural pain; M19.90 Unspecified osteoarthritis, unspecified site; K21.9 Gastro-esophageal reflux disease without esophagitis; E03.9 Hypothyroidism, unspecified; F32.9 Major depressive disorder, single episode, unspecified; F17.210 Nicotine dependence, cigarettes, uncomplicated; Z79.82 Long term (current) use of aspirin; Z79.899 Other long term (current) drug therapy; Z91.048 Other nonmedicinal substance allergy status; Z79.51 Long term (current) use of inhaled steroids; Z88.8 Allergy status to other drugs, medicaments and biological substances; Z88.0 Allergy status to penicillin; Z20.828 Contact with and (suspected) exposure to other viral communicable diseases; Z90.710 Acquired absence of both cervix and uterus; Z80.0 Family history of malignant neoplasm of digestive organs; Z82.3 Family history of stroke
CPT/HCPCS: 71045; 80053 ×4; 80061; 81000; 83605; 84145; 84484 ×2; 85025 ×4; 85379; 85610 ×2; 85730; 86141; 87040; 87088; 87804; 93005; 94640; 94664 ×2; 94760 ×3; 96361; 96374; 96375; 97162; 97165; 99284; G0378; U0002; 36415; 87635

== ENCOUNTER 2020-06-11 15:25 | Emergency (ER) | payer MEDICARE, MEDICAID ==
[~2020-06-11] VITALS: Ht 157.4 cm; Wt 135.4 kg
[~2020-06-11 15:25] MED LIST changes: +CARB15DR2 OU; -CLIN300C11 PO; +CLIN300C12 PO; +CLOP75TA69 PO; +DILT120C53 PO; +ROSU5TAB13 PO
[2020-06-11 15:42] LABS: BASOPHILS % (AUTO) 0 % (0-10); EOSINOPHILS # (AUTO) 0.1 10^3/uL (0.0-0.3); EOSINOPHILS % (AUTO) 1 % (0-10); HEMATOCRIT 41 % (35-52); LYMPHOCYTES # (AUTO) 1.4 X 10^3 (1.0-4.0); LYMPHOCYTES % (AUTO) 17 % (12-44); MEAN CORPUSCULAR HEMOGLOBIN 29 PG (25-34); MEAN CORPUSCULAR HGB CONC 32 G/DL (32-36); MEAN CORPUSCULAR VOLUME 93 FL (80-99); MEAN PLATELET VOLUME 10.2 FL (7.4-10.4); MONOCYTES # (AUTO) 0.6 X 10^3 (0.0-1.0); MONOCYTES % (AUTO) 8 % (0-12); NEUTROPHILS # (AUTO) 6.1 X 10^3 (1.8-7.8); NEUTROPHILS % (AUTO) 74 % (42-75); PLATELET COUNT 182 10^3/uL (130-400); WHITE BLOOD COUNT 8.3 10^3/uL (4.3-11.0)
[2020-06-11] MEDS ORDERED: morphine INJ 10 MG/ML 1ML (SYR OR VIAL) IVP STA (15:46)
--- NOTE | 2020-06-11 15:52 | Diagnostic Imaging Report ---
INDICATION: Chest pain. COMPARISON: 01/29/2020. FINDINGS: Single frontal view of the chest demonstrates normal heart size and pulmonary vascularity. The lungs are well aerated and clear. No large pleural effusion or pneumothorax is seen. The visualized osseous structures show no acute abnormalities. IMPRESSION: 1. No acute cardiopulmonary process. Dictated by: Dictated on workstation # [id number]
[2020-06-11] MEDS ORDERED: ONDANSETRON 4 MG/2 ML (SDV) Z0FRAN IVP ONE (16:00)
[2020-06-11 16:10] LABS: CHLORIDE 100 MMOL/L (98-107); POTASSIUM 3.8 MMOL/L (3.6-5.0); SODIUM 138 MMOL/L (135-145)
[2020-06-11 16:11] LABS: ALANINE AMINOTRANSFERASE 18 U/L (0-55); ALKALINE PHOSPHATASE 113 U/L (40-136); BILIRUBIN,TOTAL 0.4 MG/DL (0.1-1.0); BUN/CREATININE RATIO 14; CALCIUM 9.2 MG/DL (8.5-10.1); CARBON DIOXIDE 26 MMOL/L (21-32); CREATININE SERUM 0.88 MG/DL (0.60-1.30); GFR ESTIMATED > 60; GLUCOSE 172 MG/DL (70-105); TOTAL PROTEIN 7.3 GM/DL (6.4-8.2)
--- NOTE | 2020-06-11 16:12 | NUR ---
To patient room to answer call light. Pt clenching facial muscles and holding breathe describing very sharp chest pain "8". Noted couplet PVC's on monitor and appearing rate down with breathe holding to bradycardia upper 40's-50's. Pt experienced an add'l couplet PVC's.
--- NOTE | 2020-06-11 16:15 | NUR ---
Pt NIBP rechecked 138/69. Monitor reviewed.
[2020-06-11 16:16] LABS: INR 1.9 (0.8-1.4); PROTHROMBIN TIME PATIENT 21.8 SEC (12.2-14.7)
--- NOTE | 2020-06-11 16:20 | NUR ---
Reported to Dr Davidson, plan for pt further testing.
--- NOTE | 2020-06-11 16:40 | NUR ---
In to patient room to update of pending CT chest as someone is already on CT table. Brief update given that Dr Davidson is aware of the monitor strips being looked at when Chest Pain is reported and that the cardiac enzymes are normal with a normal EKG. Pt hx of DVT and PE and Dr would like this scan done. Pt's significant other advises this RN of the repeat serial cardiac tests that usually get done when she has chest pain. Dr Davidson noted patient is sub-therapeutic INR.
[2020-06-11] MEDS ORDERED: ROSU20TA32 PO (16:49)
[2020-06-11] MEDS ORDERED: NS 100 ML (IVPB) BAG IV ONE (17:15)
[2020-06-11] MEDS ORDERED: CATHETER FLUSH 10 ML SYR IV PRN (17:15)
[2020-06-11] MEDS ORDERED: HOLD METFORMIN - RECEIVED CONTRAST 20 ML VIAL IV SCH (17:15)
[2020-06-11] MEDS ORDERED: IOHEXOL 350 MG/ML 150 ML (OMNIPAQUE 350) VIAL IV ONE (17:15)
--- NOTE | 2020-06-11 17:45 | Diagnostic Imaging Report ---
PROCEDURE: CT angiography of the chest with contrast. TECHNIQUE: Multiple contiguous axial images were obtained through the chest after uneventful bolus administration of intravenous contrast. 3D reconstructed CTA MIP acquisitions were also performed. Auto Exposure Controls were utilized during the CT exam to meet ALARA standards for radiation dose reduction. INDICATION: History of colon carcinoma. Post colon resection. Chest pain. CORRELATION: 02/06/2019 FINDINGS: Heart size is borderline enlarged. Prominent pericardial fat. No significant pericardial effusion. There is no disproportionate right heart strain. Thoracic aortic contour unremarkable. The pulmonary arteries demonstrate no filling defect to suggest pulmonary embolism. Smaller peripheral emboli would likely go undetected on this study. No pathologically enlarged mediastinal lymph nodes. There is slight haziness about the level of the thyroid bed, nonspecific. Areas of scarring or atelectasis about both lung bases. No consolidating infiltrate. No definitive concerning pulmonary mass. Small granuloma left upper lobe. No significant effusion or pneumothorax. Liver appears to be perhaps mildly enlarged with mild steatosis. Stomach is distended with fluid and retained gastric contents. Partial visualization of cervicothoracic spinal fixation hardware. IMPRESSION: 1. No CTA evidence for pulmonary embolism. Negative for acute aortic syndrome. Dictated by: Dictated on workstation # [id number]
--- NOTE | 2020-06-11 17:53 | NUR ---
Notified Dr Davidson of pt's CTA resulting.
[2020-06-11] MEDS ORDERED: ATROPINE INJECTION 1 MG/1 ML SDV IJ ONE (18:15)
--- NOTE | 2020-06-11 18:30 | NUR ---
Return call from [facility] Soila Collins to speak to Dr Davidson. Dr robles a call to inquire about reviewing patient evaluation with Dr Duggan or covering turn out worker
--- NOTE | 2020-06-11 18:45 | NUR ---
Awaiting return call from Karina Cm regarding consultation request with hat sprayer transportation solutions manager for Dr Duggan.
--- NOTE | 2020-06-11 18:54 | NUR ---
Report to Yamel FELDMAN.
--- NOTE | 2020-06-11 20:17 | ED General ---
General Chief Complaint: Chest Pain Stated Complaint: CHEST PAIN Nursing Sepsis Screen: No Definite Risk Source of Information: Patient History of Present Illness Date Seen by Provider: Jun 11, 2020 Time Seen by Provider: 14:54 Initial Comments Patient is a 64-year-old female with history of coronary artery disease and PE who presents to the ED with left parasternal chest pain described as sharp, sporadic lasting for seconds at a time occurring randomly every 2 to 3 minutes. Pain is rated a 10 out of 10 and does not reproduce with palpation or deep breathing. Patient denies fever, cough, sore throat. She does report mild dyspnea with exertion. She denies increased leg pain or swelling. No nausea vomiting or sweats. No other acute symptoms or complaints. Patient states her symptoms do feel similar to previous episode of coronary disease. Patient's last stent was placed several months ago by Dr. Yves Duggan at [facility]. Timing/Duration: 12-24 Hours Severity: Moderate Modifying Factors: improves with Other Associated Systoms: Other Allergies and Home Medications Allergies Coded Allergies: methylprednisolone (Verified Allergy, Mild, 11/05/18) Penicillins (Unverified Allergy, Unknown, 11/05/18) atorvastatin (Verified Allergy, Unknown, 11/05/18) isosorbide (Verified Allergy, Unknown, 11/05/18) ketorolac (Verified Allergy, Unknown, ITCHING, 11/05/18) promethazine (Unverified Allergy, Unknown, hallucinations, 11/05/18) venom-honey bee (Unverified Allergy, Unknown, 11/05/18) Uncoded Allergies: TAPE (Allergy, Unknown, 08/16/13) Home Medications Acetaminophen 500 Mg Tablet, 500-1,000 MG PO Q8H PRN for PAIN-MILD (1-4), (Reported) Albuterol Sulfate 18 Gm Hfa.aer.ad, 1 PUFF INH Q4H PRN for SHORTNESS OF BREATH, (Reported) Aspirin 81 Mg Tablet.dr, 81 MG PO HS, (Reported) Carboxymethylcellulos/Glycerin 15 Ml Drops, 2 DROPS OU PRN PRN for DRY EYES, (Reported) Clopidogrel Bisulfate 75 Mg Tablet, 75 MG PO HS, (Reported) Diltiazem HCl 120 Mg Cap.er.24h, 120 MG PO HS, (Reported) Levothyroxine Sodium 150 Mcg Tablet, 150 MCG PO HS, (Reported) Rosuvastatin Calcium 20 Mg Tablet, 20 MG PO HS, (Reported) Warfarin Sodium 5 Mg Tablet, 5 MG PO MARIE,TU,WE,CECILLE,FR,SAT, (Reported) TAKES 1 (5MG) TAB ON MARIE,TU,WE,CECILLE,FR &SAT TAKES 1 & (5MG) TABS ON MON Warfarin Sodium 5 Mg Tablet, 7.5 MG PO MON, (Reported) TAKES 1 (5MG) TAB ON MARIE,TU,WE,CECILLE,FR &SAT TAKES 1 & (5MG) TABS ON MON Patient Home Medication List Home Medication List Reviewed: Yes Review of Systems Review of Systems Constitutional: see HPI EENTM: see HPI Respiratory: see HPI Cardiovascular: see HPI Gastrointestinal: see HPI Genitourinary: see HPI : Yes Musculoskeletal: see HPI Skin: see HPI Psychiatric/Neurological: See HPI Hematologic/Lymphatic: See HPI Immunological/Allergic: see HPI All Other Systems Reviewed Negative Unless Noted: Yes Past Kpmxmix-Uizrbh-Ctbgdp Hx Past Med/Social Hx: Reviewed Nursing Past Med/Soc Hx Patient Social History Alcohol Use: Denies Use Smoking Status: Former Smoker Type Used: Cigarettes 2nd Hand Smoke Exposure: Yes Recent Infectious Disease Expo: No Recent Hopitalizations: No Immunizations Up To Date Tetanus Booster (TDap): Less than 5yrs PED Vaccines UTD: Yes Date of Pneumonia Vaccine: Jan 09, 2017 Date of Influenza Vaccine: May 06, 2012 Seasonal Allergies Seasonal Allergies: No Past Medical History Surgeries: Yes Appendectomy, Cardiac, Coronary Stent, Gallbladder, Hysterectomy, Orthopedic, Thyroidectomy Respiratory: Yes (HAS CPAP--DOES NOT USE ON REGULAR BASIS; P.E. X2) Asthma, Pulmonary Embolism, Sleep Apnea Currently Using CPAP: No Currently Using BIPAP: No Cardiac: Yes (P.E. 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 Sexually Transmitted Disease: No HIV/AIDS: No Genitourinary: Yes Bladder Infection, Kidney Stones Gastrointestinal: Yes (S/P GENI) Gastroesophageal Reflux, Chronic Constipation, Gall Bladder Disease Musculoskeletal: Yes Degenerate Disk Disease, Arthritis, Back Injury, Chronic Back Pain, Spasms Endocrine: Yes (MORBID OBESITY; THYROIDECTOMY) Hypothyroidsim HEENT: Yes Loss of Vision: Bilateral Hearing Impairment: Denies Cancer: No Colon Psychosocial: No Depression Integumentary: No Blood Disorders: Yes (BLOOD CLOTS-DVT/P.E.'S) Adverse Reaction/Blood Tranf: No Family Medical History Arthritis G8 SISTER Cardiovascular disease 03 FATHER Colon cancer 03 MOTHER Completed stroke 03 MOTHER Hypertension 03 MOTHER G8 BROTHER Myocardial infarction 03 MOTHER Thyroid disease G8 SISTER Physical Exam Vital Signs Vital Signs - First Documented 06/11/20 15:30 Temp 36.0 Pulse 63 Resp 21 B/P (MAP) 137/74 (95) Pulse Ox 97 O2 Delivery Room Air Capillary Refill : Less Than 3 Seconds Height, Weight, BMI Height: 5'2.00" Weight: 297lbs. 8.0oz. 134.034549lb; 54.00 BMI Method:Stated General Appearance: No Apparent Distress Eyes: Bilateral Eye PERRL, Bilateral Eye EOMI, Bilateral Eye Abnormal EOM HEENT: PERRL/EOMI, Normal ENT Inspection, Pharynx Normal Neck: Full Range of Motion, Normal Inspection, Supple Respiratory: Chest Non Tender, Lungs Clear Cardiovascular: Regular Rate, Rhythm, No Edema Gastrointestinal: Soft, Other (Obesity compromising exam.) Extremity: Other (Negative Homans signs.) Neurologic/Psychiatric: Alert, Oriented x3, Other (Anxious) Lymphatic: No Adenopathy Focused Exam Sepsis Stage: Ruled Out Progress/Results/Core Measures Suspected Sepsis Recent Fever Within 48 Hours: No Infection Criteria Present: None New/Unexplained Altered Menta: No Sepsis Screen: No Definite Risk SIRS Temperature: Pulse: 63 Respiratory Rate: 21 Laboratory Tests 06/11/20 15:35: White Blood Count 8.3 Blood Pressure 137 /74 Mean: 95 Laboratory Tests 06/11/20 15:35: Creatinine 0.88, INR Comment 1.9H, Platelet Count 182, Total Bilirubin 0.4 Results/Orders Lab Results Laboratory Tests Test 06/11/20 15:35 Range/Units White Blood Count 8.3 4.3-11.0 10^3/uL Red Blood Count 4.42 4.35-5.85 10^6/uL Hemoglobin 13.0 11.5-16.0 G/DL Hematocrit 41 35-52 % Mean Corpuscular Volume 93 80-99 FL Mean Corpuscular Hemoglobin 29 25-34 PG Mean Corpuscular Hemoglobin Concent 32 32-36 G/DL Red Cell Distribution Width 15.4 H 10.0-14.5 % Platelet Count 182 130-400 10^3/uL Mean Platelet Volume 10.2 7.4-10.4 FL Immature Granulocyte % (Auto) 1 % Neutrophils (%) (Auto) 74 42-75 % Lymphocytes (%) (Auto) 17 12-44 % Monocytes (%) (Auto) 8 0-12 % Eosinophils (%) (Auto) 1 0-10 % Basophils (%) (Auto) 0 0-10 % Neutrophils # (Auto) 6.1 1.8-7.8 X 10^3 Lymphocytes # (Auto) 1.4 1.0-4.0 X 10^3 Monocytes # (Auto) 0.6 0.0-1.0 X 10^3 Eosinophils # (Auto) 0.1 0.0-0.3 10^3/uL Basophils # (Auto) 0.0 0.0-0.1 10^3/uL Immature Granulocyte # (Auto) 0.0 0.0-0.1 10^3/uL Prothrombin Time 21.8 H 12.2-14.7 SEC INR Comment 1.9 H 0.8-1.4 Sodium Level 138 135-145 MMOL/L Potassium Level 3.8 3.6-5.0 MMOL/L Chloride Level 100 98-107 MMOL/L Carbon Dioxide Level 26 21-32 MMOL/L Anion Gap 12 5-14 MMOL/L Blood Urea Nitrogen 12 7-18 MG/DL Creatinine 0.88 0.60-1.30 MG/DL Estimat Glomerular Filtration Rate > 60 BUN/Creatinine Ratio 14 Glucose Level 172 H 70-105 MG/DL Calcium Level 9.2 8.5-10.1 MG/DL Corrected Calcium 9.2 8.5-10.1 MG/DL Total Bilirubin 0.4 0.1-1.0 MG/DL Aspartate Amino Transf (AST/SGOT) 23 5-34 U/L Alanine Aminotransferase (ALT/SGPT) 18 0-55 U/L Alkaline Phosphatase 113 40-136 U/L Troponin I < 0.30 <0.30 NG/ML Pro-B-Type Natriuretic Peptide 51.3 <75.0 PG/ML Total Protein 7.3 6.4-8.2 GM/DL Albumin 4.0 3.2-4.5 GM/DL My Orders Orders - NEREIDA TAPIA DO Cbc With Automated Diff (06/11/20 15:31) Comprehensive Metabolic Panel (06/11/20 15:31) Ekg-Prn For Chest Pain Or Rhyt (06/11/20 15:31) Troponin I Fs (06/11/20 15:31) Probnp Fs (06/11/20 15:31) Chest 1 View Ap/Pa Only (06/11/20 15:31) Morphine Injection (Morphine Injection (06/11/20 15:46) Ondansetron Injection (Zofran Injectio (06/11/20 16:00) Protime With Inr (06/11/20 15:47) Ct Angio Chest W (06/11/20 15:47) Iohexol Injection (Omnipaque 350 Mg/Ml 1 (06/11/20 17:15) Received Contrast (Hold Metformin- Contr (06/11/20 17:15) Sodium Chloride Flush (Catheter Flush Sy (06/11/20 17:15) Ns (Ivpb) (Sodium Chloride 0.9% Ivpb Bag (06/11/20 17:15) Atropine Injection (Atropine Injection) (06/11/20 18:15) Medications Given in ED Current Medications Medications Dose Ordered Sig/Marcio Route Start Time Stop Time Status Last Admin Dose Admin Iohexol 125 ml ONCE ONCE IV 06/11/20 17:15 06/11/20 17:16 DC 06/11/20 17:25 125 ML Ondansetron HCl 4 mg ONCE ONCE IVP 06/11/20 16:00 06/11/20 16:01 DC 06/11/20 15:52 4 MG Sodium Chloride 10 ml NEEDED PRN IV 06/11/20 17:15 06/11/20 17:25 10 ML Sodium Chloride 100 ml ONCE ONCE IV 06/11/20 17:15 06/11/20 17:16 DC 06/11/20 17:25 100 ML Vital Signs/I&O 06/11/20 06/11/20 15:30 15:30 Temp 36.0 Pulse 63 Resp 21 B/P (MAP) 137/74 (95) Pulse Ox 97 O2 Delivery Room Air Room Air Capillary Refill : Less Than 3 Seconds Blood Pressure Mean: 95 Departure Communication (Admissions) Chest x-ray: No acute cardiopulmonary disease. CTA chest: No findings of acute cardiopulmonary disease or pulmonary emboli. EKG: No acute ST-T wave changes. Atypical chest pain sharp parasternal coinciding with PVC couplets on monitor. Pain is disproportionate to expectation. Blood pressure is controlled. History of PE. No findings of PE on exam. Attempted to discuss and review case with Dr. Boss on-call for Dr. Duggan at [facility]. Dr. Snow declines phone consult but does offer hospitalist service to admit for evaluation and in [place]. Dr. Davis accepts the care of the patient. Patient with prolonged visit in the emergency department awaiting for [facility] dress shoe inspector to call back to discuss patient. Impression Primary Impression: Chest pain Additional Impression: Palpitations Disposition: S[facility]-TRM HOSP Condition: Stable Admissions Time/Decision to Admit Time: 20:23 Departure-Patient Inst. Referrals: [facility] (PCP) Primary Care Physician NEVA HU APRN (Family) Primary Care Physician NEREIDA TAPIA DO Jun 11, 2020 20:17
[2020-06-11 21:16] VITALS: BP 139/79
== END 2020-06-11 21:16 | disposition home or self-care (01) ==
LOC: EDUNIT# 15:25 → ER FS 15:27
DX: R07.9 Chest pain, unspecified (principal); R00.2 Palpitations; F41.9 Anxiety disorder, unspecified; E66.01 Morbid (severe) obesity due to excess calories; I10 Essential (primary) hypertension; E78.00 Pure hypercholesterolemia, unspecified; E03.9 Hypothyroidism, unspecified; J45.909 Unspecified asthma, uncomplicated; Z68.43 Body mass index [BMI] 50.0-59.9, adult; Z88.0 Allergy status to penicillin; Z88.6 Allergy status to analgesic agent; Z88.8 Allergy status to other drugs, medicaments and biological substances; Z85.038 Personal history of other malignant neoplasm of large intestine; Z95.5 Presence of coronary angioplasty implant and graft; Z95.9 Presence of cardiac and vascular implant and graft, unspecified; Z86.711 Personal history of pulmonary embolism; Z86.718 Personal history of other venous thrombosis and embolism; Z87.891 Personal history of nicotine dependence; Z82.61 Family history of arthritis; Z80.0 Family history of malignant neoplasm of digestive organs; Z82.49 Family history of ischemic heart disease and other diseases of the circulatory system; Z79.01 Long term (current) use of anticoagulants; Z79.82 Long term (current) use of aspirin; Z79.890 Hormone replacement therapy
CPT/HCPCS: 36415; 71045; 71275; 80053; 83880; 84484; 85025; 85610

== ENCOUNTER 2020-11-08 21:50 | Emergency (ER) | payer MEDICARE, MEDICAID ==
[~2020-11-08] VITALS: Ht 157 cm; Wt 140.6 kg
[~2020-11-08 21:50] MED LIST changes: +DOXY-311 PO; -DOXY100C42 PO; -ISOS30TA3 PO; +ISOS30TA82 PO; +ROSU20TA32 PO
--- NOTE | 2020-11-08 22:12 | ED General ---
General Chief Complaint: General Problems/Pain Stated Complaint: MIGRAINE/ POSSIBLE STROKE Nursing Triage Note: PT ARRIVES TO VIA HOME WC WITH C/O MIGRAINE AND WEAKNESS. PT STAETS SHE IS MORE WEAK THAN NORMAL. PT ALSO STATES HER FACE IS NUMB FROM HER EYES DOWN BUT NO HEADACHE WITH THE MIGRAINE. History of Present Illness Date Seen by Provider: Nov 08, 2020 Time Seen by Provider: 21:55 Initial Comments Patient is a 64-year-old female who presents to the emergency department today with a chief complaint of feeling like she has a "migraine" without an actual headache and numbness to bilateral face just below the cheekbones to her chin. Patient denies any tongue numbness or difficulty speaking. She states typically this happens on one side of her face or the other. She denies any recent illnesses such as fevers, chills, cough or congestion. No nausea vomiting or diarrhea no GI or complaints. Patient states that she has these infrequently. But typically as stated are one-sided. She has not taken anything for the symptoms. Symptom onset was between 5 and 6:00 this evening. She states normally when she has this it lasts about 6 hours and will go away. She denies any visual changes or swallowing difficulties. No extremity numbness weakness or tingling. No incontinence of bowel or bladder. All other review of systems reviewed and negative except as stated. Timing/Duration: 4-6 Hours Severity: Moderate Associated Systoms: Denies Symptoms Allergies and Home Medications Allergies Coded Allergies: methylprednisolone (Verified Allergy, Mild, 11/05/18) Penicillins (Unverified Allergy, Unknown, 11/05/18) atorvastatin (Verified Allergy, Unknown, 11/05/18) isosorbide (Verified Allergy, Unknown, 11/05/18) ketorolac (Verified Allergy, Unknown, ITCHING, 11/05/18) promethazine (Unverified Allergy, Unknown, hallucinations, 11/05/18) venom-honey bee (Unverified Allergy, Unknown, 11/05/18) Uncoded Allergies: TAPE (Allergy, Unknown, 08/16/13) Home Medications Acetaminophen 500 Mg Tablet, 500-1,000 MG PO Q8H PRN for PAIN-MILD (1-4), ( Reported) Albuterol Sulfate 18 Gm Hfa.aer.ad, 1 PUFF INH Q4H PRN for SHORTNESS OF BREATH, (Reported) Aspirin 81 Mg Tablet.dr, 81 MG PO HS, (Reported) Carboxymethylcellulos/Glycerin 15 Ml Drops, 2 DROPS OU PRN PRN for DRY EYES, (Reported) Clopidogrel Bisulfate 75 Mg Tablet, 75 MG PO HS, (Reported) Diltiazem HCl 120 Mg Cap.er.24h, 120 MG PO HS, (Reported) Levothyroxine Sodium 150 Mcg Tablet, 150 MCG PO HS, (Reported) Rosuvastatin Calcium 20 Mg Tablet, 20 MG PO HS, (Reported) Warfarin Sodium 5 Mg Tablet, 5 MG PO MARIE,TU,WE,CECIL[place],FR,SAT, (Reported) TAKES 1 (5MG) TAB ON MARIE,TU,WE,CECIL[place],FR &SAT TAKES 1 & (5MG) TABS ON MON Warfarin Sodium 5 Mg Tablet, 7.5 MG PO MON, (Reported) TAKES 1 (5MG) TAB ON MARIE,TU,WE,CECIL[place],FR &SAT TAKES 1 & (5MG) TABS ON MON Patient Home Medication List Home Medication List Reviewed: Yes Review of Systems Review of Systems Constitutional: see HPI Respiratory: no symptoms reported Cardiovascular: no symptoms reported Gastrointestinal: no symptoms reported Genitourinary: no symptoms reported Musculoskeletal: no symptoms reported Past Zveqjfq-Ocujvo-Hgmxdo Hx Patient Social History Tobacco Use?: No Smoking Status: Never a Smoker Smokeless Tobacco Frequency: Never a User Use of E-Cig and/or Vaping Martin: Never a User Alcohol Use?: No Pt feels they are or have been: No Immunizations Up To Date Tetanus Booster (TDap): Less than 5yrs PED Vaccines UTD: Yes Seasonal Allergies Seasonal Allergies: No Past Medical History Surgeries: Yes Appendectomy, Cardiac, Coronary Stent, Gallbladder, Hysterectomy, Orthopedic, Th yroidectomy Respiratory: Yes (HAS CPAP--DOES NOT USE ON REGULAR BASIS; P.E. X2) Asthma, Pulmonary Embolism, Sleep Apnea Currently Using CPAP: No Currently Using BIPAP: No Cardiac: Yes (P.E. 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 Sexually Transmitted Disease: No HIV/AIDS: No Genitourinary: Yes Bladder Infection, Kidney Stones Gastrointestinal: Yes (S/P GENI) Gastroesophageal Reflux, Chronic Constipation, Gall Bladder Disease Musculoskeletal: Yes Degenerate Disk Disease, Arthritis, Back Injury, Chronic Back Pain, Spasms Endocrine: Yes (MORBID OBESITY; THYROIDECTOMY) Hypothyroidsim HEENT: Yes Loss of Vision: Bilateral Hearing Impairment: Denies Cancer: No Colon Psychosocial: No Depression Integumentary: No Blood Disorders: Yes (BLOOD CLOTS-DVT/P.E.'S) Adverse Reaction/Blood Tranf: No Family Medical History Arthritis G8 SISTER Cardiovascular disease 03 FATHER Colon cancer 03 MOTHER Completed stroke 03 MOTHER Hypertension 03 MOTHER G8 BROTHER Myocardial infarction 03 MOTHER Thyroid disease G8 SISTER Physical Exam Vital Signs Vital Signs - First Documented 11/08/20 11/08/20 21:59 22:58 Temp 36.5 Pulse 75 Resp 20 B/P (MAP) 142/74 (96) Pulse Ox 99 Capillary Refill : Less Than 3 Seconds Height, Weight, BMI Height: 5'2.00" Weight: 297lbs. 8.0oz. 134.772774wu; 57.00 BMI Method:Stated General Appearance: No Apparent Distress, WD/WN Eyes: Bilateral Eye Normal Inspection, Bilateral Eye PERRL, Bilateral Eye EOMI HEENT: PERRL/EOMI, Normal ENT Inspection, Pharynx Normal (Tongue is midline) Neck: Full Range of Motion, Normal Inspection, Non Tender, Supple Respiratory: Lungs Clear, Normal Breath Sounds, No Accessory Muscle Use Cardiovascular: Regular Rate, Rhythm Gastrointestinal: Normal Bowel Sounds Extremity: Normal Capillary Refill, Normal Inspection, Normal Range of Motion, Non Tender Neurologic/Psychiatric: Alert, Oriented x3, No Motor/Sensory Deficits, Normal Mood/Affect Skin: Normal Color, Warm/Dry Progress/Results/Core Measures Suspected Sepsis SIRS Temperature: Pulse: 75 Respiratory Rate: 20 Blood Pressure 142 /74 Mean: 96 Laboratory Tests 11/08/20 22:17: Creatinine 0.86 Results/Orders Lab Results Laboratory Tests Test 11/08/20 22:17 Range/Units Sodium Level 139 135-145 MMOL/L Potassium Level 4.0 3.6-5.0 MMOL/L Chloride Level 103 98-107 MMOL/L Carbon Dioxide Level 26 21-32 MMOL/L Anion Gap 10 5-14 MMOL/L Blood Urea Nitrogen 11 7-18 MG/DL Creatinine 0.86 0.60-1.30 MG/DL Estimat Glomerular Filtration Rate > 60 BUN/Creatinine Ratio 13 Glucose Level 151 H 70-105 MG/DL Calcium Level 9.0 8.5-10.1 MG/DL My Orders Orders - LUZ HANKS MD Basic Metabolic Panel (11/08/20 22:09) Vital Signs/I&O 11/08/20 11/08/20 21:59 22:58 Temp 36.5 36.5 Pulse 75 70 Resp 20 20 B/P (MAP) 142/74 (96) 147/75 (96) Pulse Ox 99 Capillary Refill : Less Than 3 Seconds Blood Pressure Mean: 96 Progress Note : Time: 22:53 Progress Note Patient reevaluated and states that her symptoms have completely and spontaneously resolved. She has no further numbness to her face. I have reassured her that none of this is concerning for an acute ischemic stroke. I have advised her return precautions. She verbalizes understanding. Patient's chemistry is reviewed and her blood sugar is slightly high at 151. The patient states that she had a Coke just prior to arrival. I have advised her to follow- up with her primary care physician. She is agreeable and stable for discharge. Departure Impression Primary Impression: Facial paresthesia Disposition: 01 HOME, SELF-CARE Condition: Stable Departure-Patient Inst. Decision time for Depature: 22:54 Referrals: [facility] (PCP) Primary Care Physician NATALIYA WALLACE (Family) Primary Care Physician Patient Instructions: Paresthesia (DC) Add. Discharge Instructions: Continue your home daily medications. Drink plenty of fluids to stay well-hydrated. Come back to the emergency department for any new, concerning or emergent complaints. Please follow-up with your primary care provider. LUZ HANKS MD Nov 08, 2020 22:12
[2020-11-08 22:42] LABS: BUN/CREATININE RATIO 13; CARBON DIOXIDE 26 MMOL/L (21-32); CHLORIDE 103 MMOL/L (98-107); CREATININE SERUM 0.86 MG/DL (0.60-1.30); GFR ESTIMATED > 60; GLUCOSE 151 MG/DL (70-105); SODIUM 139 MMOL/L (135-145)
[2020-11-08 22:58] VITALS: BP 147/75
== END 2020-11-08 22:58 | disposition home or self-care (01) ==
LOC: EDUNIT# 21:50 → ER 21:53
DX: R20.2 Paresthesia of skin (principal); E66.01 Morbid (severe) obesity due to excess calories; J45.909 Unspecified asthma, uncomplicated; I10 Essential (primary) hypertension; E78.00 Pure hypercholesterolemia, unspecified; I25.10 Atherosclerotic heart disease of native coronary artery without angina pectoris; E03.9 Hypothyroidism, unspecified; Z68.43 Body mass index [BMI] 50.0-59.9, adult; Z86.718 Personal history of other venous thrombosis and embolism; Z86.711 Personal history of pulmonary embolism; Z79.899 Other long term (current) drug therapy; Z79.82 Long term (current) use of aspirin; Z79.01 Long term (current) use of anticoagulants; Z79.890 Hormone replacement therapy
CPT/HCPCS: 36415; 80048; 99281

== ENCOUNTER 2020-12-05 12:12 | Emergency (ER) | payer MEDICARE, MEDICAID ==
[~2020-12-05] VITALS: Ht 157.5 cm; Wt 145.0 kg
[~2020-12-05 12:12] MED LIST changes: -SULF1TAB35 PO; +SULF1TAB38 PO
--- NOTE | 2020-12-05 12:28 | ED General ---
General Chief Complaint: Dizziness/Syncope Stated Complaint: DIZZINESS;FAINTING Source of Information: Patient Exam Limitations: No Limitations (SHALOM RAMÍREZ APRN) History of Present Illness Date Seen by Provider: Dec 05, 2020 Time Seen by Provider: 12:26 Initial Comments With a 1 week history of lightheadedness. She fainted 1 time. She has a headache. She was seen at [facility] prior to coming here and had a negative Covid test and was referred to the emergency room. She denies chest pain or shortness of breath. Timing/Duration: 1-2 Days Severity: Moderate Associated Systoms: Denies Symptoms (SHALOM RAMÍREZ APRN) Allergies and Home Medications Allergies Coded Allergies: methylprednisolone (Verified Allergy, Mild, 11/05/18) Penicillins (Unverified Allergy, Unknown, 11/05/18) atorvastatin (Verified Allergy, Unknown, 11/05/18) isosorbide (Verified Allergy, Unknown, 11/05/18) ketorolac (Verified Allergy, Unknown, ITCHING, 11/05/18) promethazine (Unverified Allergy, Unknown, hallucinations, 11/05/18) venom-honey bee (Unverified Allergy, Unknown, 11/05/18) Uncoded Allergies: TAPE (Allergy, Unknown, 08/16/13) Home Medications Acetaminophen 500 Mg Tablet, 500-1,000 MG PO Q8H PRN for PAIN-MILD (1-4), (Reported) Albuterol Sulfate 18 Gm Hfa.aer.ad, 1 PUFF INH Q4H PRN for SHORTNESS OF BREATH, (Reported) Aspirin 81 Mg Tablet.dr, 81 MG PO HS, (Reported) Carboxymethylcellulos/Glycerin 15 Ml Drops, 2 DROPS OU PRN PRN for DRY EYES, (Reported) Clopidogrel Bisulfate 75 Mg Tablet, 75 MG PO HS, (Reported) Diltiazem HCl 120 Mg Cap.er.24h, 120 MG PO HS, (Reported) Levothyroxine Sodium 150 Mcg Tablet, 150 MCG PO HS, (Reported) Meclizine HCl 25 Mg Tablet, 25 MG PO TID Prescribed by: SHALOM RAMÍREZ on 12/05/20 1325 Rosuvastatin Calcium 20 Mg Tablet, 20 MG PO HS, (Reported) Warfarin Sodium 5 Mg Tablet, 5 MG PO MARIE,TU,WE,CECILLE,FR,SAT, (Reported) TAKES 1 (5MG) TAB ON MARIE,TU,WE,CECILLE,FR &SAT TAKES 1 & (5MG) TABS ON MON Warfarin Sodium 5 Mg Tablet, 7.5 MG PO MON, (Reported) TAKES 1 (5MG) TAB ON MARIE,TU,WE,CECILLE,FR &SAT TAKES 1 & (5MG) TABS ON MON Patient Home Medication List Home Medication List Reviewed: Yes (SHALOM RAMÍREZ APRN) Review of Systems Review of Systems Constitutional: see HPI EENTM: see HPI Respiratory: no symptoms reported Cardiovascular: no symptoms reported; No chest pain Genitourinary: no symptoms reported Musculoskeletal: no symptoms reported Skin: no symptoms reported Psychiatric/Neurological: No Symptoms Reported Hematologic/Lymphatic: No Symptoms Reported Immunological/Allergic: no symptoms reported (SHALOM RAMÍREZ APRN) Past Kzlfkys-Tkjexp-Dkczyq Hx Patient Social History Tobacco Use?: No Substance use?: No Alcohol Use?: No Pt feels they are or have been: No (SHALOM RAMÍREZ APRN) Immunizations Up To Date Tetanus Booster (TDap): Less than 5yrs PED Vaccines UTD: Yes (SHALOM RAMÍREZ APRN) Seasonal Allergies Seasonal Allergies: No (SHALOM RAMÍREZ APRN) Past Medical History Surgeries: Yes Appendectomy, Cardiac, Coronary Stent, Gallbladder, Hysterectomy, Orthopedic, Thyroidectomy Respiratory: Yes (HAS CPAP--DOES NOT USE ON REGULAR BASIS; P.E. X2) Asthma, Pulmonary Embolism, Sleep Apnea Currently Using CPAP: No Currently Using BIPAP: No Cardiac: Yes (P.E. 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 Sexually Transmitted Disease: No HIV/AIDS: No Genitourinary: Yes Bladder Infection, Kidney Stones Gastrointestinal: Yes (S/P GENI) Gastroesophageal Reflux, Chronic Constipation, Gall Bladder Disease Musculoskeletal: Yes Degenerate Disk Disease, Arthritis, Back Injury, Chronic Back Pain, Spasms Endocrine: Yes (MORBID OBESITY; THYROIDECTOMY) Hypothyroidsim HEENT: Yes Loss of Vision: Bilateral Hearing Impairment: Denies Cancer: No Colon Psychosocial: No Depression Integumentary: No Blood Disorders: Yes (BLOOD CLOTS-DVT/P.E.'S) Adverse Reaction/Blood Tranf: No (SHALOM RAMÍREZ APRN) Family Medical History Arthritis G8 SISTER Cardiovascular disease 03 FATHER Colon cancer 03 MOTHER Completed stroke 03 MOTHER Hypertension 03 MOTHER G8 BROTHER Myocardial infarction 03 MOTHER Thyroid disease G8 SISTER Physical Exam Vital Signs Vital Signs - First Documented 12/05/20 12:17 Temp 36.2 Pulse 77 Resp 20 B/P (MAP) 137/59 (85) Pulse Ox 94 O2 Delivery Room Air (CHARLES LOPEZ MD) Vital Signs Capillary Refill : (SHALOM RAMÍREZ APRN) Height, Weight, BMI Height: 5'2.00" Weight: 297lbs. 8.0oz. 134.554999iw; 57.00 BMI Method:Stated General Appearance: No Apparent Distress, WD/WN, Obese, Other (Alert and oriented GCS 15 heart rate 76 sinus blood pressure 137/59) Eyes: Bilateral Eye Normal Inspection, Bilateral Eye PERRL, Bilateral Eye EOMI HEENT: PERRL/EOMI, TMs Normal Neck: Full Range of Motion, Normal Inspection Respiratory: Normal Breath Sounds, No Accessory Muscle Use, No Respiratory Distress Cardiovascular: Regular Rate, Rhythm, Normal Peripheral Pulses Gastrointestinal: Normal Bowel Sounds, Non Tender, Soft Extremity: Normal Capillary Refill, Normal Inspection Neurologic/Psychiatric: Alert, Oriented x3 Skin: Normal Color, Warm/Dry (SHALOM RAMÍREZ APRN) Progress/Results/Core Measures Suspected Sepsis SIRS Temperature: Pulse: Respiratory Rate: Laboratory Tests 12/05/20 12:20: White Blood Count 11.9H Blood Pressure / Mean: Laboratory Tests 12/05/20 12:20: Creatinine 1.00, Platelet Count 209, Total Bilirubin 0.4 12/05/20 12:56: INR Comment 1.1 (SHALOM RAMÍREZ APRN) Results/Orders Lab Results Laboratory Tests Test 12/05/20 12:20 12/05/20 12:56 Range/Units White Blood Count 11.9 H 4.3-11.0 10^3/uL Red Blood Count 4.54 3.80-5.11 10^6/uL Hemoglobin 13.3 11.5-16.0 g/dL Hematocrit 43 35-52 % Mean Corpuscular Volume 95 80-99 fL Mean Corpuscular Hemoglobin 29 25-34 pg Mean Corpuscular Hemoglobin Concent 31 L 32-36 g/dL Red Cell Distribution Width 15.3 H 10.0-14.5 % Platelet Count 209 130-400 10^3/uL Mean Platelet Volume 10.4 9.0-12.2 fL Immature Granulocyte % (Auto) 0 % Neutrophils (%) (Auto) 75 42-75 % Lymphocytes (%) (Auto) 18 12-44 % Monocytes (%) (Auto) 6 0-12 % Eosinophils (%) (Auto) 1 0-10 % Basophils (%) (Auto) 0 0-10 % Neutrophils # (Auto) 8.9 H 1.8-7.8 10^3/uL Lymphocytes # (Auto) 2.1 1.0-4.0 10^3/uL Monocytes # (Auto) 0.7 0.0-1.0 10^3/uL Eosinophils # (Auto) 0.1 0.0-0.3 10^3/uL Basophils # (Auto) 0.0 0.0-0.1 10^3/uL Immature Granulocyte # (Auto) 0.1 0.0-0.1 10^3/uL Sodium Level 141 135-145 MMOL/L Potassium Level 4.0 3.6-5.0 MMOL/L Chloride Level 102 98-107 MMOL/L Carbon Dioxide Level 25 21-32 MMOL/L Anion Gap 14 5-14 MMOL/L Blood Urea Nitrogen 12 7-18 MG/DL Creatinine 1.00 0.60-1.30 MG/DL Estimat Glomerular Filtration Rate 56 BUN/Creatinine Ratio 12 Glucose Level 207 H 70-105 MG/DL Calcium Level 9.4 8.5-10.1 MG/DL Corrected Calcium 9.3 8.5-10.1 MG/DL Magnesium Level 2.2 1.6-2.4 MG/DL Total Bilirubin 0.4 0.1-1.0 MG/DL Aspartate Amino Transf (AST/SGOT) 27 5-34 U/L Alanine Aminotransferase (ALT/SGPT) 24 0-55 U/L Alkaline Phosphatase 99 40-136 U/L Myoglobin 50.9 10.0-92.0 NG/ML B-Type Natriuretic Peptide < 10.0 <100.0 PG/ML Total Protein 7.8 6.4-8.2 GM/DL Albumin 4.1 3.2-4.5 GM/DL Prothrombin Time 14.6 12.2-14.7 SEC INR Comment 1.1 0.8-1.4 Activated Partial Thromboplast Time 27 24-35 SEC (CHARLES LOPEZ MD) Vital Signs/I&O 12/05/20 12/05/20 12:17 13:28 Temp 36.2 Pulse 77 69 Resp 20 20 B/P (MAP) 137/59 (85) 106/83 Pulse Ox 94 96 O2 Delivery Room Air Room Air 12/05/20 23:59 Intake Total 1000 ml Balance 1000 ml (CHARLES LOPEZ MD) Vital Signs/I&O Capillary Refill : (SHALOM RAMÍREZ APRN) Departure Communication (Admissions) EKG shows sinus rhythm rate of [address] segment change (SHALOM RAMÍREZ APRN) Impression Primary Impression: Lightheadedness Disposition: 01 HOME, SELF-CARE Condition: Stable Departure-Patient Inst. Decision time for Depature: 13:15 (SHALOM RAMÍREZ APRN) Referrals: [facility] [place] [place] (PCP) Primary Care Physician NATALIYA WALLACE (Family) Primary Care Physician Patient Instructions: Dizziness, Adult ED Scripts Meclizine HCl (Meclizine HCl) 25 Mg Tablet 25 MG PO TID, #12 TAB Prov: SHALOM RAMÍREZ APRN 12/05/20 ATTENDING PHYSICIAN NOTE: I was physically present as attending physician in the emergency department during the care of this patient, but I was not directly involved in the decision making or delivery of care for this patient. (CHARLES LOPEZ MD) SHALOM RAMÍREZ APRN Dec 05, 2020 12:28 CHARLES LOPEZ MD Dec 06, 2020 07:10
[2020-12-05] MEDS ORDERED: LACTATED RINGERS 1,000 ML IV SCH (12:30)
[2020-12-05 12:31] LABS: BASOPHILS % (AUTO) 0 % (0-10); EOSINOPHILS # (AUTO) 0.1 10^3/uL (0.0-0.3); EOSINOPHILS % (AUTO) 1 % (0-10); HEMATOCRIT 43 % (35-52); HEMOGLOBIN 13.3 g/dL (11.5-16.0); LYMPHOCYTES # (AUTO) 2.1 10^3/uL (1.0-4.0); LYMPHOCYTES % (AUTO) 18 % (12-44); MEAN CORPUSCULAR HEMOGLOBIN 29 pg (25-34); MEAN CORPUSCULAR HGB CONC 31 g/dL (32-36); MEAN CORPUSCULAR VOLUME 95 fL (80-99); MEAN PLATELET VOLUME 10.4 fL (9.0-12.2); MONOCYTES # (AUTO) 0.7 10^3/uL (0.0-1.0); MONOCYTES % (AUTO) 6 % (0-12); NEUTROPHILS # (AUTO) 8.9 10^3/uL (1.8-7.8); NEUTROPHILS % (AUTO) 75 % (42-75); PLATELET COUNT 209 10^3/uL (130-400); WHITE BLOOD COUNT 11.9 10^3/uL (4.3-11.0)
[2020-12-05 12:43] LABS: ALBUMIN 4.1 GM/DL (3.2-4.5)
[2020-12-05 12:45] LABS: CALCIUM 9.4 MG/DL (8.5-10.1)
[2020-12-05 12:46] LABS: TOTAL PROTEIN 7.8 GM/DL (6.4-8.2)
[2020-12-05 12:48] LABS: BILIRUBIN,TOTAL 0.4 MG/DL (0.1-1.0)
--- NOTE | 2020-12-05 12:50 | Diagnostic Imaging Report ---
Clinical indication: Patient with chest pain, dizziness and lightheadedness symptoms last week. Exam: Portable chest x-ray upright view. Comparisons: Chest x-ray dated 06/11/2020. Findings: Lungs/pleura: The previously seen opacities in the right lung base has resolved. There is mild bibasilar atelectasis. Otherwise, lungs are clear. There is no pneumothorax. There is no pleural effusion. Mediastinum: Unremarkable. Pulmonary vasculature: Unremarkable. Heart: Stable cardiomegaly. Bones/extrathoracic soft tissue: There are degenerative spurs involving the spine. Anterior cervical disk fusion hardware is partially visualized.. Impression: 1: There is no radiographic evidence of acute cardiopulmonary process. There is mild bibasilar atelectasis. 2: There is stable cardiomegaly with no significant pulmonary vascular congestion. Dictated by: Dictated on workstation # [id number]
[2020-12-05 12:52] LABS: MAGNESIUM 2.2 MG/DL (1.6-2.4)
[2020-12-05 13:17] LABS: INR 1.1 (0.8-1.4); PROTHROMBIN TIME PATIENT 14.6 SEC (12.2-14.7)
[2020-12-05] MEDS ORDERED: MECL-149 PO (13:25)
[2020-12-05 13:28] VITALS: BP 106/83
[2020-12-05] MEDS ORDERED: MECLIZINE 25 MG (ANTIVERT) TAB PO ONE (13:30)
== END 2020-12-05 13:28 | disposition home or self-care (01) ==
LOC: EDUNIT# 12:12 → ER 12:13
DX: R42 Dizziness and giddiness (principal); G89.29 Other chronic pain; R10.2 Pelvic and perineal pain; I10 Essential (primary) hypertension; I25.10 Atherosclerotic heart disease of native coronary artery without angina pectoris; E89.0 Postprocedural hypothyroidism; E78.00 Pure hypercholesterolemia, unspecified; E66.01 Morbid (severe) obesity due to excess calories; J45.909 Unspecified asthma, uncomplicated; Z86.711 Personal history of pulmonary embolism; Z86.718 Personal history of other venous thrombosis and embolism; Z88.8 Allergy status to other drugs, medicaments and biological substances; Z79.01 Long term (current) use of anticoagulants; Z79.82 Long term (current) use of aspirin; Z79.890 Hormone replacement therapy; Z79.02 Long term (current) use of antithrombotics/antiplatelets; Z79.899 Other long term (current) drug therapy
CPT/HCPCS: 36415; 71045; 80053; 83735; 83874; 83880; 85025; 85610; 85730; 93005; 93041

== ENCOUNTER 2021-01-28 14:31 | Emergency (ER) | payer MEDICARE, MEDICAID ==
[~2021-01-28] VITALS: Ht 157.5 cm; Wt 140.6 kg
[~2021-01-28 14:31] MED LIST changes: +MECL-149 PO
--- NOTE | 2021-01-28 14:37 | ED Lower Extremity ---
General Stated Complaint: LEG PAIN/WEAKNESS History of Present Illness Date Seen by Provider: Jan 28, 2021 Time Seen by Provider: 14:37 Initial Comments 65-year-old obese female presents with left lower extremity pain, from the back of her thigh to her leg and into her foot. Denies any injury or trauma. Denies previous history of similar pain. She does have intermittent back and joint pain. Has taken nothing for pain. Has not seen her doctor for the same. Denies any swelling of the lower extremities or skin changes/discoloration or bruising patient takes coumadin Allergies and Home Medications Allergies Coded Allergies: methylprednisolone (Verified Allergy, Mild, 11/05/18) Penicillins (Unverified Allergy, Unknown, 11/05/18) atorvastatin (Verified Allergy, Unknown, 11/05/18) isosorbide (Verified Allergy, Unknown, 11/05/18) ketorolac (Verified Allergy, Unknown, ITCHING, 11/05/18) promethazine (Unverified Allergy, Unknown, hallucinations, 11/05/18) venom-honey bee (Unverified Allergy, Unknown, 11/05/18) Uncoded Allergies: TAPE (Allergy, Unknown, 08/16/13) Patient Home Medication List Home Medication List Reviewed: Yes Acetaminophen (Acetaminophen) 500 Mg Tablet, 500-1,000 MG PO Q8H PRN for PAIN- MILD (1-4), (Reported) Entered as Reported by: YARA JUAREZ on 09/04/15 1558 Albuterol Sulfate (Ventolin Hfa) 18 Gm Hfa.aer.ad, 1 PUFF INH Q4H PRN for SHORTNESS OF BREATH, (Reported) Entered as Reported by: KSENIA PIÑA on 08/19/17 0947 Aspirin (Aspirin EC) 81 Mg Tablet.dr, 81 MG PO HS, (Reported) Entered as Reported by: RAAD LANDRY on 01/30/20 1138 Carboxymethylcellulos/Glycerin (Refresh Optive Eye Drops) 15 Ml Drops, 2 DROPS OU PRN PRN for DRY EYES, (Reported) Entered as Reported by: RAAD LANDRY on 01/30/20 1138 Clopidogrel Bisulfate (Plavix) 75 Mg Tablet, 75 MG PO HS, (Reported) Entered as Reported by: RAAD LANDRY on 01/30/20 1138 Diltiazem HCl (Cartia Xt) 120 Mg Cap.er.24h, 120 MG PO HS, (Reported) Entered as Reported by: RAAD LANDRY on 01/30/20 1138 Levothyroxine Sodium (Levothyroxine Sodium) 150 Mcg Tablet, 150 MCG PO HS, (R eported) Entered as Reported by: YARA JUAREZ on 09/04/15 1524 Meclizine HCl (Meclizine HCl) 25 Mg Tablet, 25 MG PO TID Prescribed by: SHALOM RAMÍREZ on 12/05/20 1325 Rosuvastatin Calcium (Rosuvastatin Calcium) 20 Mg Tablet, 20 MG PO HS, (Reported) Entered as Reported by: BLAIRE MONTGOMERY on 06/11/20 1649 Warfarin Sodium (Warfarin Sodium) 5 Mg Tablet, 5 MG PO MARIE,TU,WE,CECILLE,FR,SAT, (Reported) Entered as Reported by: YARA JUAREZ on 09/04/15 1542 Warfarin Sodium (Warfarin Sodium) 5 Mg Tablet, 7.5 MG PO MON, (Reported) Entered as Reported by: RAAD LANDRY on 01/30/20 1138 Review of Systems Constitutional: No fever, No malaise, No weakness Respiratory: No cough, No short of breath Cardiovascular: No chest pain, No edema, No palpitations, No syncope Musculoskeletal: see HPI, other (left post thigh pain and both feet (shooting pain)) Skin: No change in color, No rash Psychiatric/Neurological: Denies Numbness, Denies Paresthesia, Denies Tremors, Denies Weakness Past [place]-Rkhidy-Wigprc Hx Patient Social History Tobacco Use?: No Immunizations Up To Date Tetanus Booster (TDap): Less than 5yrs PED Vaccines UTD: Yes Seasonal Allergies Seasonal Allergies: No Past Medical History Surgeries: Yes Appendectomy, Cardiac, Coronary Stent, Gallbladder, Hysterectomy, Orthopedic, Thyroidectomy Respiratory: Yes (HAS CPAP--DOES NOT USE ON REGULAR BASIS; P.E. X2) Asthma, Pulmonary Embolism, Sleep Apnea Currently Using CPAP: No Currently Using BIPAP: No Cardiac: Yes (P.E. 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 Sexually Transmitted Disease: No HIV/AIDS: No Genitourinary: Yes Bladder Infection, Kidney Stones Gastrointestinal: Yes (S/P GENI) Gastroesophageal Reflux, Chronic Constipation, Gall Bladder Disease Musculoskeletal: Yes Degenerate Disk Disease, Arthritis, Back Injury, Chronic Back Pain, Spasms Endocrine: Yes (MORBID OBESITY; THYROIDECTOMY) Hypothyroidsim HEENT: Yes Loss of Vision: Bilateral Hearing Impairment: Denies Cancer: No Colon Psychosocial: No Depression Integumentary: No Blood Disorders: Yes (BLOOD CLOTS-DVT/P.E.'S) Adverse Reaction/Blood Tranf: No Family Medical History Arthritis G8 SISTER Cardiovascular disease 03 FATHER Colon cancer 03 MOTHER Completed stroke 03 MOTHER Hypertension 03 MOTHER G8 BROTHER Myocardial infarction 03 MOTHER Thyroid disease G8 SISTER Physical Exam Vital Signs Vital Signs - First Documented 01/28/21 14:48 Temp 36.4 Pulse 71 Resp 16 B/P (MAP) 153/117 (129) Pulse Ox 98 O2 Delivery Room Air Capillary Refill : Height, Weight, BMI Height: 5'2.00" Weight: 297lbs. 8.0oz. 134.817569wh; 58.00 BMI Method:Stated General Appearance: WD/WN, no apparent distress Back: normal inspection, no CVA tenderness, no vertebral tenderness Hips: bilateral hip non-tender, bilateral hip normal inspection, bilateral hip normal range of motion; left hip soft tissue tenderness (distal, post thigh- ms) Legs: bilateral leg non-tender, bilateral leg normal inspection, bilateral leg normal range of motion, bilateral leg no evidence of injury Knees: bilateral knee non-tender, bilateral knee normal inspection, bilateral knee normal range of motion, bilateral knee no evidence of injury Ankles: bilateral ankle non-tender, bilateral ankle normal inspection, bilateral ankle normal range of motion, bilateral ankle no evidence of injury Feet: bilateral foot non-tender, bilateral foot normal inspection, bilateral foot normal range of motion, bilateral foot no evidence of injury Neurologic/Psychiatric: no motor/sensory deficits, alert, normal mood/affect Skin: normal color, warm/dry; No rash Progress/Results/Core Measures Results/Orders My Orders Orders - ROVENSTPETER ROBERTS DO Knee 3 View Left (01/28/21 14:59) Vital Signs/I&O 01/28/21 14:48 Temp 36.4 Pulse 71 Resp 16 B/P (MAP) 153/117 (129) Pulse Ox 98 O2 Delivery Room Air Diagnostic Imaging Diagonstic Imaging: Xray Comments Date of Exam:01/28/21 KNEE 3 VIEW LEFT INDICATION: Left knee pain. AP, oblique, and lateral views of the left knee are obtained and compared with 09/06/2014. FINDINGS: There is severe medial joint space narrowing with osteophyte formation and afshnlde-ca-vioerd lateral joint space narrowing with osteophyte formation. There is prominent patellofemoral spurring and osteophyte formation. There are questionable loose bodies in the posterior joint space. There is no acute fracture. IMPRESSION: Advanced degenerative findings of the left knee, worse when compared with 09/06/2014. Potential loose body in the posterior joint space. Dictated on workstation # [id number] Dict: 01/28/21 1526 Trans: 01/28/21 1531 [id number] Interpreted by: DL HIDALGO MD Electronically signed by: Departure Impression Primary Impression: Muscle strain of left knee Qualified Codes: S86.912A - Strain of unspecified muscle(s) and tendon(s) at lower leg level, left leg, initial encounter Additional Impression: OA (osteoarthritis) of knee Qualified Codes: M17.12 - Unilateral primary osteoarthritis, left knee Disposition: 01 HOME, SELF-CARE Condition: Stable Departure-Patient Inst. Decision time for Depature: 15:00 Referrals: [facility] (PCP) Primary Care Physician NATALIYA WALLACE (Family) Primary Care Physician Patient Instructions: Lower Extremity Muscle Strain (DC), Physical Activity for People With Arthritis Add. Discharge Instructions: Follow up with your PCP in 1 to 2 weeks if not improving, sooner if worse PETER JON DO Jan 28, 2021 14:37
[2021-01-28 14:48] VITALS: BP 153/117
--- NOTE | 2021-01-28 15:32 | Diagnostic Imaging Report ---
INDICATION: Left knee pain. AP, oblique, and lateral views of the left knee are obtained and compared with 09/06/2014. FINDINGS: There is severe medial joint space narrowing with osteophyte formation and ukydstfz-ak-mdubaj lateral joint space narrowing with osteophyte formation. There is prominent patellofemoral spurring and osteophyte formation. There are questionable loose bodies in the posterior joint space. There is no acute fracture. IMPRESSION: Advanced degenerative findings of the left knee, worse when compared with 09/06/2014. Potential loose body in the posterior joint space. Dictated by: Dictated on workstation # [id number]
== END 2021-01-28 15:45 | disposition home or self-care (01) ==
LOC: EDUNIT# 14:31 → ER FS 14:32
DX: S86.912A Strain of unspecified muscle(s) and tendon(s) at lower leg level, left leg, initial encounter (principal); M17.12 Unilateral primary osteoarthritis, left knee; J45.909 Unspecified asthma, uncomplicated; I10 Essential (primary) hypertension; E78.00 Pure hypercholesterolemia, unspecified; G89.29 Other chronic pain; M54.9 Dorsalgia, unspecified; E89.0 Postprocedural hypothyroidism; I25.10 Atherosclerotic heart disease of native coronary artery without angina pectoris; E66.01 Morbid (severe) obesity due to excess calories; Z79.890 Hormone replacement therapy; Z79.899 Other long term (current) drug therapy; X58.XXXA Exposure to other specified factors, initial encounter
CPT/HCPCS: 73562

== ENCOUNTER 2021-02-08 18:07 | Emergency (ER) | payer MEDICARE, MEDICAID ==
[~2021-02-08] VITALS: Ht 157.5 cm; Wt 140.6 kg
--- NOTE | 2021-02-08 18:42 | ED Lower Extremity ---
General Chief Complaint: Lower Extremity Stated Complaint: SPRAINED L ANKLE, SPRAINED L KNEE Nursing Triage Note: PT TO FT3 VIA PERSONAL WC W REPORTS OF LEFT KNEE AND ANKLE PAIN. PT REPORTS ON 01/23 SHE WOKE UP WITH THIS PAIN. ON 01/28 SHE WAS EVALUATED BY [facility] ER AND WAS TOLD SHE SPRAINED HER KNEE AND ANKLE. PT C/O INCREASING PAIN AND INABILITY TO WALK OR STAND. LEFT FOOT SWELLING NOTED. Source: patient Exam Limitations: no limitations History of Present Illness Date Seen by Provider: Feb 08, 2021 Time Seen by Provider: 18:38 Initial Comments To ER with left leg swelling and pain. She was initially seen at [place] emergency room on 01/28. She did not recall any injury and was diagnosed with arthritis of the knee. The cause of her foot swelling was not determined. She has a history of DVT and is chronically on warfarin though she has not taken it for the past 3 days because she "just did not feel like it". She was seen subs equently at [facility] in [place] on the in the emergency room and had bilateral tibia/fibula x-ray, bilateral ankle and bilateral foot x-rays done. She also had a lower extremity venous ultrasound. There was no evidence of DVT or fracture/dislocation. She was given a single hydrocodone and a prescription for prednisone. She reports increasing swelling and pain with weightbearing. No fevers or chills. Does not recall any injury. Onset: just prior to arrival Severity: moderate Pain/Injury Location: left leg, left foot, left ankle Method of Injury: unknown Modifying Factors: Worse With Movement Allergies and Home Medications Allergies Coded Allergies: methylprednisolone (Verified Allergy, Mild, 11/05/18) Penicillins (Unverified Allergy, Unknown, 11/05/18) atorvastatin (Verified Allergy, Unknown, 11/05/18) isosorbide (Verified Allergy, Unknown, 11/05/18) ketorolac (Verified Allergy, Unknown, ITCHING, 11/05/18) promethazine (Unverified Allergy, Unknown, hallucinations, 11/05/18) venom-honey bee (Unverified Allergy, Unknown, 11/05/18) Uncoded Allergies: TAPE (Allergy, Unknown, 08/16/13) Patient Home Medication List Home Medication List Reviewed: Yes Acetaminophen (Acetaminophen) 500 Mg Tablet, 500-1,000 MG PO Q8H PRN for PAIN- MILD (1-4), (Reported) Entered as Reported by: YARA JUAREZ on 09/04/15 1558 Albuterol Sulfate (Ventolin Hfa) 18 Gm Hfa.aer.ad, 1 PUFF INH Q4H PRN for SHORTNESS OF BREATH, (Reported) Entered as Reported by: KSENIA PIÑA on 08/19/17 0947 Aspirin (Aspirin EC) 81 Mg Tablet.dr, 81 MG PO HS, (Reported) Entered as Reported by: RAAD LANDRY on 01/30/20 1138 Carboxymethylcellulos/Glycerin (Refresh Optive Eye Drops) 15 Ml Drops, 2 DROPS OU PRN PRN for DRY EYES, (Reported) Entered as Reported by: RAAD LANDRY on 01/30/20 1138 Clopidogrel Bisulfate (Plavix) 75 Mg Tablet, 75 MG PO HS, (Reported) Entered as Reported by: RAAD LANDRY on 01/30/20 1138 Diltiazem HCl (Cartia Xt) 120 Mg Cap.er.24h, 120 MG PO HS, (Reported) Entered as Reported by: RAAD LANDRY on 01/30/20 1138 Levothyroxine Sodium (Levothyroxine Sodium) 150 Mcg Tablet, 150 MCG PO HS, (Reported) Entered as Reported by: YARA JUAREZ on 09/04/15 1524 Meclizine HCl (Meclizine HCl) 25 Mg Tablet, 25 MG PO TID Prescribed by: SHALOM RAMÍREZ on 12/05/20 1325 Rosuvastatin Calcium (Rosuvastatin Calcium) 20 Mg Tablet, 20 MG PO HS, (Reported) Entered as Reported by: BLAIRE MONTGOMERY on 06/11/20 1649 Warfarin Sodium (Warfarin Sodium) 5 Mg Tablet, 5 MG PO MARIE,TU,WE,CECILLE,FR,SAT, (Rep orted) Entered as Reported by: YARA JUAREZ on 09/04/15 1542 Warfarin Sodium (Warfarin Sodium) 5 Mg Tablet, 7.5 MG PO MON, (Reported) Entered as Reported by: RAAD LANDRY on 01/30/20 1138 Review of Systems Constitutional: see HPI; No chills, No fever EENTM: see HPI Respiratory: no symptoms reported Cardiovascular: no symptoms reported Genitourinary: no symptoms reported Musculoskeletal: no symptoms reported Skin: no symptoms reported Psychiatric/Neurological: No Symptoms Reported Past Ygmmcyj-Ocpyqt-Owuvpe Hx Patient Social History Tobacco Use?: No Smoking Status: Never a Smoker Use of E-Cig and/or Vaping dev: No Substance use?: No Alcohol Use?: No Immunizations Up To Date Tetanus Booster (TDap): Less than 5yrs PED Vaccines UTD: Yes First/Initial COVID19 Vaccinat: NONE Second COVID19 Vaccination Lm: NONE COVID19 Vaccine Professor Of Psychiatry: NONE Seasonal Allergies Seasonal Allergies: No Past Medical History Surgery/Hospitalization HX: SURGERY HX API, GALLBLADDER, HYSTERECTOMY, CARDIAC STENTS Surgeries: Yes Appendectomy, Cardiac, Coronary Stent, Gallbladder, Hysterectomy, Orthopedic, Thyroidectomy Respiratory: Yes (HAS CPAP--DOES NOT USE ON REGULAR BASIS; P.E. X2) Asthma, Pulmonary Embolism, Sleep Apnea Currently Using CPAP: No Currently Using BIPAP: No Cardiac: Yes (P.E. 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 Sexually Transmitted Disease: No HIV/AIDS: No Genitourinary: Yes Bladder Infection, Kidney Stones Gastrointestinal: Yes (S/P GENI) Gastroesophageal Reflux, Chronic Constipation, Gall Bladder Disease Musculoskeletal: Yes Degenerate Disk Disease, Arthritis, Back Injury, Chronic Back Pain, Spasms Endocrine: Yes (MORBID OBESITY; THYROIDECTOMY) Hypothyroidsim HEENT: Yes Loss of Vision: Bilateral Hearing Impairment: Denies Cancer: No Colon Psychosocial: No Depression Integumentary: No Blood Disorders: Yes (BLOOD CLOTS-DVT/P.E.'S) Adverse Reaction/Blood Tranf: No Family Medical History Arthritis G8 SISTER Cardiovascular disease 03 FATHER Colon cancer 03 MOTHER Completed stroke 03 MOTHER Hypertension 03 MOTHER G8 BROTHER Myocardial infarction 03 MOTHER Thyroid disease G8 SISTER Physical Exam Vital Signs Vital Signs - First Documented 02/08/21 18:18 Temp 37.0 Pulse 73 Resp 22 B/P (MAP) 138/78 (98) Pulse Ox 95 O2 Delivery Room Air Capillary Refill : Less Than 3 Seconds Height, Weight, BMI Height: 5'2.00" Weight: 297lbs. 8.0oz. [id number]; 56.00 BMI Method:Stated General Appearance: WD/WN, no apparent distress HEENT: PERRL/EOMI, normal ENT inspection Neck: full range of motion Respiratory: no respiratory distress, no accessory muscle use Hips: bilateral hip non-tender, bilateral hip normal inspection, bilateral hip normal range of motion Legs: bilateral leg non-tender, bilateral leg normal inspection, bilateral leg normal range of motion Knees: bilateral knee non-tender, bilateral knee normal inspection, bilateral knee normal range of motion Ankles: left ankle pain, left ankle soft tissue tenderness, left ankle swelling, left ankle other (No erythema or ecchymosis noted there is swelling to the left foot greater than right.) Feet: bilateral foot non-tender, bilateral foot normal inspection, bilateral foot normal range of motion Neurologic/Psychiatric: alert, normal mood/affect, oriented x 3 Skin: normal color, warm/dry Progress/Results/Core Measures Results/Orders Lab Results Laboratory Tests Test 02/08/21 18:50 Range/Units White Blood Count 10.3 4.3-11.0 10^3/uL Red Blood Count 4.45 3.80-5.11 10^6/uL Hemoglobin 13.2 11.5-16.0 g/dL Hematocrit 42 35-52 % Mean Corpuscular Volume 95 80-99 fL Mean Corpuscular Hemoglobin 30 25-34 pg Mean Corpuscular Hemoglobin Concent 31 L 32-36 g/dL Red Cell Distribution Width 14.8 H 10.0-14.5 % Platelet Count 239 130-400 10^3/uL Mean Platelet Volume 10.6 9.0-12.2 fL Immature Granulocyte % (Auto) 1 % Neutrophils (%) (Auto) 73 42-75 % Lymphocytes (%) (Auto) 17 12-44 % Monocytes (%) (Auto) 8 0-12 % Eosinophils (%) (Auto) 1 0-10 % Basophils (%) (Auto) 0 0-10 % Neutrophils # (Auto) 7.6 1.8-7.8 10^3/uL Lymphocytes # (Auto) 1.7 1.0-4.0 10^3/uL Monocytes # (Auto) 0.9 0.0-1.0 10^3/uL Eosinophils # (Auto) 0.1 0.0-0.3 10^3/uL Basophils # (Auto) 0.0 0.0-0.1 10^3/uL Immature Granulocyte # (Auto) 0.1 0.0-0.1 10^3/uL Prothrombin Time 29.7 H 12.2-14.7 SEC INR Comment 2.8 H 0.8-1.4 Sodium Level 138 135-145 MMOL/L Potassium Level 4.0 3.6-5.0 MMOL/L Chloride Level 101 98-107 MMOL/L Carbon Dioxide Level 25 21-32 MMOL/L Anion Gap 12 5-14 MMOL/L Blood Urea Nitrogen 13 7-18 MG/DL Creatinine 0.91 0.60-1.30 MG/DL Estimat Glomerular Filtration Rate 62 BUN/Creatinine Ratio 14 Glucose Level 121 H 70-105 MG/DL Calcium Level 9.7 8.5-10.1 MG/DL My Orders Orders - SHALOM RAMÍREZ APRN Hydrocodone/Apap 5/325 Tablet (Lortab 5 (02/08/21 18:45) Cbc With Automated Diff (02/08/21 18:35) Basic Metabolic Panel (02/08/21 18:35) Protime With Inr (02/08/21 18:35) Medications Given in ED Current Medications Medications Dose Ordered Sig/Marcio Route Start Time Stop Time Status Last Admin Dose Admin Acetaminophen/ Hydrocodone Bitart 1 ea ONCE ONCE PO 02/08/21 18:45 02/08/21 18:46 DC 02/08/21 18:47 1 EA Vital Signs/I&O 02/08/21 18:18 Temp 37.0 Pulse 73 Resp 22 B/P (MAP) 138/78 (98) Pulse Ox 95 O2 Delivery Room Air Blood Pressure Mean: 98 Departure Impression Primary Impression: Left leg swelling Disposition: HOME, SELF-CARE Condition: Stable Departure-Patient Inst. Decision time for Depature: 18:42 Referrals: [facility] (PCP) Primary Care Physician NATALIYA WALLACE (Family) Primary Care Physician Patient Instructions: Swelling Add. Discharge Instructions: 1. Follow-up with primary care next week to discuss scheduling an MRI of the knee and ankle. Take the pain medication as directed. All discharge instructions reviewed with patient and/or family. Voiced understanding. Scripts Hydrocodone/Acetaminophen (Hydrocodone-Acetamin 5-325 mg) 1 Each Tablet 1 TAB PO Q4H PRN for PAIN-MODERATE (5-7), #10 TAB Prov: SHALOM RAMÍREZ APRN 02/08/21 SHALOM RAMÍREZ APRN Feb 08, 2021 18:42
[2021-02-08] MEDS ORDERED: HYDROcodone/APAP 5 MG/325 MG (LORTAB) TAB PO ONE (18:45)
[2021-02-08 18:58] LABS: BASOPHILS % (AUTO) 0 % (0-10); EOSINOPHILS # (AUTO) 0.1 10^3/uL (0.0-0.3); EOSINOPHILS % (AUTO) 1 % (0-10); HEMATOCRIT 42 % (35-52); HEMOGLOBIN 13.2 g/dL (11.5-16.0); LYMPHOCYTES # (AUTO) 1.7 10^3/uL (1.0-4.0); LYMPHOCYTES % (AUTO) 17 % (12-44); MEAN CORPUSCULAR HEMOGLOBIN 30 pg (25-34); MEAN CORPUSCULAR HGB CONC 31 g/dL (32-36); MEAN CORPUSCULAR VOLUME 95 fL (80-99); MEAN PLATELET VOLUME 10.6 fL (9.0-12.2); MONOCYTES # (AUTO) 0.9 10^3/uL (0.0-1.0); MONOCYTES % (AUTO) 8 % (0-12); NEUTROPHILS # (AUTO) 7.6 10^3/uL (1.8-7.8); NEUTROPHILS % (AUTO) 73 % (42-75); PLATELET COUNT 239 10^3/uL (130-400); WHITE BLOOD COUNT 10.3 10^3/uL (4.3-11.0)
[2021-02-08 19:11] LABS: INR 2.8 (0.8-1.4); PROTHROMBIN TIME PATIENT 29.7 SEC (12.2-14.7)
[2021-02-08 19:19] LABS: CALCIUM 9.7 MG/DL (8.5-10.1); CREATININE SERUM 0.91 MG/DL (0.60-1.30)
[2021-02-08] MEDS ORDERED: ACHD5005 PO (19:23)
[2021-02-08 19:42] VITALS: BP 125/77
== END 2021-02-08 19:42 | disposition home or self-care (01) ==
LOC: EDUNIT# 18:07 → ER 18:10
DX: M79.89 Other specified soft tissue disorders (principal); J45.909 Unspecified asthma, uncomplicated; G47.30 Sleep apnea, unspecified; I10 Essential (primary) hypertension; E78.00 Pure hypercholesterolemia, unspecified; I25.10 Atherosclerotic heart disease of native coronary artery without angina pectoris; E03.9 Hypothyroidism, unspecified; E66.01 Morbid (severe) obesity due to excess calories; Z86.711 Personal history of pulmonary embolism; Z86.718 Personal history of other venous thrombosis and embolism; Z68.43 Body mass index [BMI] 50.0-59.9, adult; Z79.82 Long term (current) use of aspirin; Z79.01 Long term (current) use of anticoagulants; Z79.899 Other long term (current) drug therapy; Z79.890 Hormone replacement therapy
CPT/HCPCS: 36415; 80048; 85025; 85610

== ENCOUNTER 2021-04-27 16:45 | Emergency (ER) | payer MEDICARE, MEDICAID ==
[~2021-04-27] VITALS: Ht 157 cm; Wt 126.5 kg
[~2021-04-27 16:45] MED LIST changes: +CLIN-144 PO; -CLIN300C12 PO; +TIZA-186; -TIZA4TAB4
--- NOTE | 2021-04-27 18:02 | ED Lower Extremity ---
General Chief Complaint: Lower Extremity Stated Complaint: KNOTS ON RIGHT LEG Nursing Triage Note: pt here for r lower leg pain and bruising. Source: patient Exam Limitations: no limitations History of Present Illness Date Seen by Provider: Apr 27, 2021 Time Seen by Provider: 18:00 Initial Comments To ER by private vehicle with bruising to the right medial calf. She is on Coumadin. 2 weeks ago her INR was 4.8, yesterday it was a little over 5. She missed yesterday's dose and today's dose of Coumadin in an attempt to bring it down but is concerned that the bruising to the calf might represent a clot. Onset: just prior to arrival Severity: moderate Pain/Injury Location: right leg Modifying Factors: Worse With Movement Allergies and Home Medications Allergies Coded Allergies: methylprednisolone (Verified Allergy, Mild, 11/05/18) Penicillins (Unverified Allergy, Unknown, 11/05/18) atorvastatin (Verified Allergy, Unknown, 11/05/18) isosorbide (Verified Allergy, Unknown, 11/05/18) ketorolac (Verified Allergy, Unknown, ITCHING, 11/05/18) promethazine (Unverified Allergy, Unknown, hallucinations, 11/05/18) venom-honey bee (Unverified Allergy, Unknown, 11/05/18) Uncoded Allergies: TAPE (Allergy, Unknown, 08/16/13) Patient Home Medication List Home Medication List Reviewed: Yes Acetaminophen (Acetaminophen) 500 Mg Tablet, 500-1,000 MG PO Q8H PRN for PAIN- MILD (1-4), (Reported) Entered as Reported by: YARA JUAREZ on 09/04/15 1558 Albuterol Sulfate (Ventolin Hfa) 18 Gm Hfa.aer.ad, 1 PUFF INH Q4H PRN for SHORTNESS OF BREATH, (Reported) Entered as Reported by: KSENIA PIÑA on 08/19/17 0947 Aspirin (Aspirin EC) 81 Mg Tablet.dr, 81 MG PO HS, (Reported) Entered as Reported by: RAAD LANDRY on 01/30/20 1138 Carboxymethylcellulos/Glycerin (Refresh Optive Eye Drops) 15 Ml Drops, 2 DROPS OU PRN PRN for DRY EYES, (Reported) Entered as Reported by: RAAD LANDRY on 01/30/20 1138 Clopidogrel Bisulfate (Plavix) 75 Mg Tablet, 75 MG PO HS, (Reported) Entered as Reported by: RAAD LANDRY on 01/30/20 1138 Diltiazem HCl (Cartia Xt) 120 Mg Cap.er.24h, 120 MG PO HS, (Reported) Entered as Reported by: RAAD LANDRY on 01/30/20 1138 Hydrocodone/Acetaminophen (Hydrocodone-Acetamin 5-325 mg) 1 Each Tablet, 1 TAB PO Q4H PRN for PAIN-MODERATE (5-7) Prescribed by: SHALOM RAMÍREZ on 02/08/21 1924 Levothyroxine Sodium (Levothyroxine Sodium) 150 Mcg Tablet, 150 MCG PO HS, (Reported) Entered as Reported by: YARA JUAREZ on 09/04/15 1524 Meclizine HCl (Meclizine HCl) 25 Mg Tablet, 25 MG PO TID Prescribed by: SHALOM RAMÍREZ on 12/05/20 1325 Rosuvastatin Calcium (Rosuvastatin Calcium) 20 Mg Tablet, 20 MG PO HS, (Reported) Entered as Reported by: BLAIRE MONTGOMERY on 06/11/20 1649 Warfarin Sodium (Warfarin Sodium) 5 Mg Tablet, 5 MG PO MARIE,TU,WE,[place],FR,SAT, (Reported) Entered as Reported by: YARA JUAREZ on 09/04/15 1542 Warfarin Sodium (Warfarin Sodium) 5 Mg Tablet, 7.5 MG PO MON, (Reported) Entered as Reported by: RAAD LANDRY on 01/30/20 1138 Review of Systems Constitutional: see HPI EENTM: see HPI Respiratory: no symptoms reported Cardiovascular: no symptoms reported Genitourinary: no symptoms reported Musculoskeletal: see HPI Skin: no symptoms reported Psychiatric/Neurological: No Symptoms Reported Past Yyoisat-Fgytis-Edtlon Hx Patient Social History Tobacco Use?: No Substance use?: No Alcohol Use?: No Pt feels they are or have been: No Immunizations Up To Date Tetanus Booster (TDap): Less than 5yrs PED Vaccines UTD: Yes First/Initial COVID19 Vaccinat: NONE Second COVID19 Vaccination Lm: NONE Third COVID19 Vaccination Date: NONE Seasonal Allergies Seasonal Allergies: No Past Medical History Surgery/Hospitalization HX: SURGERY HX API, GALLBLADDER, HYSTERECTOMY, CARDIAC STENTS Surgeries: Yes Appendectomy, Cardiac, Coronary Stent, Gallbladder, Hysterectomy, Orthopedic, Thyroidectomy Respiratory: Yes (HAS CPAP--DOES NOT USE ON REGULAR BASIS; P.E. X2) Asthma, Pulmonary Embolism, Sleep Apnea Currently Using CPAP: No Currently Using BIPAP: No Cardiac: Yes (P.E. 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 Transmitted Disease: No HIV/AIDS: No Genitourinary: Yes Bladder Infection, Kidney Stones Gastrointestinal: Yes (S/P GENI) Gastroesophageal Reflux, Chronic Constipation, Gall Bladder Disease Musculoskeletal: Yes Degenerate Disk Disease, Arthritis, Back Injury, Chronic Back Pain, Spasms Endocrine: Yes (MORBID OBESITY; THYROIDECTOMY) Hypothyroidsim HEENT: Yes Loss of Vision: Bilateral Hearing Impairment: Denies Cancer: No Colon Psychosocial: No Depression Integumentary: No Blood Disorders: Yes (BLOOD CLOTS-DVT/P.E.'S) Adverse Reaction/Blood Tranf: No Family Medical History Arthritis G8 SISTER Cardiovascular disease 03 FATHER Colon cancer 03 MOTHER Completed stroke 03 MOTHER Hypertension 03 MOTHER G8 BROTHER Myocardial infarction 03 MOTHER Thyroid disease G8 SISTER Physical Exam Vital Signs Vital Signs - First Documented 04/27/21 16:55 Temp 35.2 Pulse 84 Resp 18 B/P (MAP) 134/69 (90) Pulse Ox 92 Capillary Refill : Less Than 3 Seconds Height, Weight, BMI Height: 5'2.00" Weight: 297lbs. 8.0oz. 134.560234qo; 51.00 BMI Method:Stated General Appearance: WD/WN, no apparent distress HEENT: PERRL/EOMI, normal ENT inspection Respiratory: no respiratory distress, no accessory muscle use Hips: bilateral hip non-tender, bilateral hip normal inspection, bilateral hip normal range of motion Legs: right leg other (Tennis ball size ecchymosis to the right medial calf with the central 2 cm indurated. No erythema. It is tender to palpation.) Knees: bilateral knee non-tender, bilateral knee normal inspection, bilateral knee normal range of motion Ankles: bilateral ankle non-tender, bilateral ankle normal inspection, bilateral ankle normal range of motion Neurologic/Psychiatric: alert, normal mood/affect, oriented x 3 Skin: normal color, warm/dry Progress/Results/Core Measures Results/Orders Lab Results Laboratory Tests Test 04/27/21 18:07 Range/Units White Blood Count 11.5 H 4.3-11.0 10^3/uL Red Blood Count 4.56 3.80-5.11 10^6/uL Hemoglobin 13.5 11.5-16.0 g/dL Hematocrit 43 35-52 % Mean Corpuscular Volume 94 80-99 fL Mean Corpuscular Hemoglobin 30 25-34 pg Mean Corpuscular Hemoglobin Concent 32 32-36 g/dL Red Cell Distribution Width 15.5 H 10.0-14.5 % Platelet Count 222 130-400 10^3/uL Mean Platelet Volume 10.2 9.0-12.2 fL Immature Granulocyte % (Auto) 0 % Neutrophils (%) (Auto) 73 42-75 % Lymphocytes (%) (Auto) 19 12-44 % Monocytes (%) (Auto) 6 0-12 % Eosinophils (%) (Auto) 1 0-10 % Basophils (%) (Auto) 0 0-10 % Neutrophils # (Auto) 8.4 H 1.8-7.8 10^3/uL Lymphocytes # (Auto) 2.2 1.0-4.0 10^3/uL Monocytes # (Auto) 0.7 0.0-1.0 10^3/uL Eosinophils # (Auto) 0.1 0.0-0.3 10^3/uL Basophils # (Auto) 0.0 0.0-0.1 10^3/uL Immature Granulocyte # (Auto) 0.0 0.0-0.1 10^3/uL Prothrombin Time 37.4 H 12.2-14.7 SEC INR Comment 3.7 H 0.8-1.4 My Orders Orders - SHALOM RAMÍREZ APRN Cbc With Automated Diff (04/27/21 17:36) Protime With Inr (04/27/21 17:36) Vital Signs/I&O 04/27/21 16:55 Temp 35.2 Pulse 84 Resp 18 B/P (MAP) 134/69 (90) Pulse Ox 92 Blood Pressure Mean: 90 Departure Impression Primary Impression: Ecchymosis Disposition: 01 HOME, SELF-CARE Condition: Stable Departure-Patient Inst. Decision time for Depature: 18:31 Referrals: [facility] (PCP) Primary Care Physician NATALIYA WALLACE (Family) Primary Care Physician Patient Instructions: Taking Care of Bruises Add. Discharge Instructions: All discharge instructions reviewed with patient and/or family. Voiced understanding. SHALOM RAMÍREZ AGRICULTURAL COMMODITIES GRADER Apr 27, 2021 18:02
[2021-04-27 18:14] LABS: BASOPHILS % (AUTO) 0 % (0-10); EOSINOPHILS # (AUTO) 0.1 10^3/uL (0.0-0.3); EOSINOPHILS % (AUTO) 1 % (0-10); HEMATOCRIT 43 % (35-52); HEMOGLOBIN 13.5 g/dL (11.5-16.0); LYMPHOCYTES # (AUTO) 2.2 10^3/uL (1.0-4.0); LYMPHOCYTES % (AUTO) 19 % (12-44); MEAN CORPUSCULAR HEMOGLOBIN 30 pg (25-34); MEAN CORPUSCULAR HGB CONC 32 g/dL (32-36); MEAN CORPUSCULAR VOLUME 94 fL (80-99); MEAN PLATELET VOLUME 10.2 fL (9.0-12.2); MONOCYTES # (AUTO) 0.7 10^3/uL (0.0-1.0); MONOCYTES % (AUTO) 6 % (0-12); NEUTROPHILS # (AUTO) 8.4 10^3/uL (1.8-7.8); NEUTROPHILS % (AUTO) 73 % (42-75); PLATELET COUNT 222 10^3/uL (130-400); WHITE BLOOD COUNT 11.5 10^3/uL (4.3-11.0)
[2021-04-27 18:31] LABS: INR 3.7 (0.8-1.4); PROTHROMBIN TIME PATIENT 37.4 SEC (12.2-14.7)
[2021-04-27 18:41] VITALS: BP 132/70
== END 2021-04-27 18:41 | disposition home or self-care (01) ==
LOC: EDUNIT# 16:45 → ER 16:47
DX: R58 Hemorrhage, not elsewhere classified (principal)
CPT/HCPCS: 36415; 85025; 85610

== ENCOUNTER 2021-04-30 19:25 | Emergency (ER) | payer MEDICARE, MEDICAID ==
[~2021-04-30] VITALS: Ht 157 cm; Wt 126.5 kg
[2021-04-30] MEDS ORDERED: ONDANSETRON 4 MG (ZOFRAN) ORAL DISSOLVE TAB PO ONE (19:45)
[2021-04-30] MEDS ORDERED: HYDROcodone/APAP 5 MG/325 MG (LORTAB) TAB PO ONE (19:45)
--- NOTE | 2021-04-30 19:49 | ED Lower Extremity ---
General Chief Complaint: Lower Extremity Stated Complaint: R LEG PAIN / SWELLING Source: patient Exam Limitations: no limitations History of Present Illness Date Seen by Provider: Apr 30, 2021 Time Seen by Provider: 19:35 Initial Comments Patient is a 65-year-old female who presents to the emergency room with a chief complaint of right lower extremity pain, bruising. She is concerned that she has a blood clot. Patient noticed some bruising to the anterior portion of her right lower leg and then just above the knee within the last week. She was seen in the emergency room and found to be hypercoagulable on her Coumadin. She held her doses for a couple of days and came down to about 3.5 on Thursday. Patient continues to have some pain in the lateral aspect of her distal right thigh as well as down around the knee. She denies any significant swelling. It hurts to walk. She is not been taking any pain medications at home because she did not want to interfere with her Coumadin. She does have hydrocodone at home. She also complains of some right midthoracic back pain that is worse with movement and deep breath. She denies fevers, chills, productive cough. She is always a little short of breath. No vomiting or diarrhea or urinary complaints. She does complain she is a little bit nauseated on my initial evaluation. She is not Covid vaccinated. All other review of systems reviewed and negative except as stated. Onset: last week Severity: moderate Pain/Injury Location: right leg, right knee, right thigh Modifying Factors: Worse With Movement Allergies and Home Medications Allergies Coded Allergies: methylprednisolone (Verified Allergy, Mild, 11/05/18) Penicillins (Unverified Allergy, Unknown, 11/05/18) atorvastatin (Verified Allergy, Unknown, 11/05/18) isosorbide (Verified Allergy, Unknown, 11/05/18) ketorolac (Verified Allergy, Unknown, ITCHING, 11/05/18) promethazine (Unverified Allergy, Unknown, hallucinations, 11/05/18) venom-honey bee (Unverified Allergy, Unknown, 11/05/18) Uncoded Allergies: TAPE (Allergy, Unknown, 08/16/13) Patient Home Medication List Home Medication List Reviewed: Yes Acetaminophen (Acetaminophen) 500 Mg Tablet, 500-1,000 MG PO Q8H PRN for PAIN- MILD (1-4), (Reported) Entered as Reported by: YARA JUAREZ on 09/04/15 1558 Albuterol Sulfate (Ventolin Hfa) 18 Gm Hfa.aer.ad, 1 PUFF INH Q4H PRN for SHORTNESS OF BREATH, (Reported) Entered as Reported by: KSENIA PIÑA on 08/19/17 0947 Aspirin (Aspirin EC) 81 Mg Tablet.dr, 81 MG PO HS, (Reported) Entered as Reported by: RAAD LANDRY on 01/30/20 1138 Carboxymethylcellulos/Glycerin (Refresh Optive Eye Drops) 15 Ml Drops, 2 DROPS OU PRN PRN for DRY EYES, (Reported) Entered as Reported by: RAAD LANDRY on 01/30/20 1138 Clopidogrel Bisulfate (Plavix) 75 Mg Tablet, 75 MG PO HS, (Reported) Entered as Reported by: RAAD LANDRY on 01/30/20 1138 Diltiazem HCl (Cartia Xt) 120 Mg Cap.er.24h, 120 MG PO HS, (Reported) Entered as Reported by: RAAD LANDRY on 01/30/20 1138 Hydrocodone/Acetaminophen (Hydrocodone-Acetamin 5-325 mg) 1 Each Tablet, 1 TAB PO Q4H PRN for PAIN-MODERATE (5-7) Prescribed by: SHALOM RAMÍREZ on 02/08/21 1924 Levothyroxine Sodium (Levothyroxine Sodium) 150 Mcg Tablet, 150 MCG PO HS, (Reported) Entered as Reported by: YARA JUAREZ on 09/04/15 1524 Meclizine HCl (Meclizine HCl) 25 Mg Tablet, 25 MG PO TID Prescribed by: SHALOM RAMÍREZ on 12/05/20 1325 Rosuvastatin Calcium (Rosuvastatin Calcium) 20 Mg Tablet, 20 MG PO HS, (Reported) Entered as Reported by: BLAIRE MONTGOMERY on 06/11/20 1649 Warfarin Sodium (Warfarin Sodium) 5 Mg Tablet, 5 MG PO MARIE,TU,WE,CECILLE,FR,SAT, (Reported) Entered as Reported by: YARA JUAREZ on 09/04/15 1542 Warfarin Sodium (Warfarin Sodium) 5 Mg Tablet, 7.5 MG PO MON, (Reported) Entered as Reported by: RAAD LANDRY on 01/30/20 1138 Review of Systems Constitutional: see HPI EENTM: no symptoms reported Respiratory: short of breath (chronic) Cardiovascular: no symptoms reported Gastrointestinal: nausea Genitourinary: no symptoms reported Musculoskeletal: back pain (right thoracic back pain), joint pain (right knee/leg) Skin: no symptoms reported All Other Systems Reviewed Negative Unless Noted: Yes Past Aptegjq-Jnuybl-Tpcjuw Hx Immunizations Up To Date Tetanus Booster (TDap): Less than 5yrs PED Vaccines UTD: Yes First/Initial COVID19 Vaccinat: NONE Second COVID19 Vaccination Lm: NONE Third COVID19 Vaccination Date: NONE Seasonal Allergies Seasonal Allergies: No Past Medical History Surgery/Hospitalization HX: SURGERY HX API, GALLBLADDER, HYSTERECTOMY, CARDIAC STENTS Surgeries: Yes Appendectomy, Cardiac, Coronary Stent, Gallbladder, Hysterectomy, Orthopedic, Thyroidectomy Respiratory: Yes (HAS CPAP--DOES NOT USE ON REGULAR BASIS; P.E. X2) Asthma, Pulmonary Embolism, Sleep Apnea Currently Using CPAP: No Currently Using BIPAP: No Cardiac: Yes (P.E. 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 Sexually Transmitted Disease: No HIV/AIDS: No Genitourinary: Yes Bladder Infection, Kidney Stones Gastrointestinal: Yes (S/P GENI) Gastroesophageal Reflux, Chronic Constipation, Gall Bladder Disease Musculoskeletal: Yes Degenerate Disk Disease, Arthritis, Back Injury, Chronic Back Pain, Spasms Endocrine: Yes (MORBID OBESITY; THYROIDECTOMY) Hypothyroidsim HEENT: Yes Loss of Vision: Bilateral Hearing Impairment: Denies Cancer: No Colon Psychosocial: No Depression Integumentary: No Blood Disorders: Yes (BLOOD CLOTS-DVT/P.E.'S) Adverse Reaction/Blood Tranf: No Family Medical History Arthritis G8 SISTER Cardiovascular disease 03 FATHER Colon cancer 03 MOTHER Completed stroke 03 MOTHER Hypertension 03 MOTHER G8 BROTHER Myocardial infarction 03 MOTHER Thyroid disease G8 SISTER Physical Exam Vital Signs Vital Signs - First Documented 04/30/21 19:32 Pulse 85 Resp 16 B/P (MAP) 147/95 (112) Pulse Ox 99 O2 Delivery Room Air Capillary Refill : Height, Weight, BMI Height: 5'2.00" Weight: 297lbs. 8.0oz. [id number]; 51.00 BMI Method:Stated General Appearance: WD/WN, mild distress Neck: full range of motion Cardiovascular: regular rate, rhythm Respiratory: lungs clear, normal breath sounds, no respiratory distress, no accessory muscle use, other (tenderness to palpation right posterior ribs - no overlying erythema or rash) Back: normal inspection Hips: bilateral hip non-tender, bilateral hip normal inspection, bilateral hip normal range of motion, bilateral hip no evidence of injury; right hip soft tissue tenderness (right lateral distal thigh) Legs: bilateral leg non-tender, bilateral leg normal inspection, bilateral leg normal range of motion, bilateral leg no evidence of injury Knees: bilateral knee non-tender, bilateral knee normal inspection, bilateral knee normal range of motion, bilateral knee no evidence of injury; right knee other (bruising upper anterior leg and above the knee; negative ahmet's, no palpable cords) Ankles: bilateral ankle non-tender, bilateral ankle normal inspection, bilateral ankle normal range of motion, bilateral ankle no evidence of injury Neurologic/Tendon: normal sensation, normal motor functions, normal tendon functions Neurologic/Psychiatric: no motor/sensory deficits, alert, normal mood/affect, oriented x 3 Skin: normal color, warm/dry, other (buirising as above) Progress/Results/Core Measures Results/Orders Lab Results Laboratory Tests Test 04/30/21 20:06 Range/Units Prothrombin Time 27.5 H 12.2-14.7 SEC INR Comment 2.5 H 0.8-1.4 My Orders Orders - LUZ HANKS MD Protime With Inr (04/30/21 19:43) Ondansetron Oral Dissolve Tab (Zofran (04/30/21 19:45) Hydrocodone/Apap 5/325 Tablet (Lortab 5 (04/30/21 19:45) Medications Given in ED Current Medications Medications Dose Ordered Sig/Marcio Route Start Time Stop Time Status Last Admin Dose Admin Acetaminophen/ Hydrocodone Bitart 1 ea ONCE ONCE PO 04/30/21 19:45 04/30/21 19:46 DC 04/30/21 19:59 1 EA Ondansetron HCl 4 mg ONCE ONCE PO 04/30/21 19:45 04/30/21 19:46 DC 04/30/21 19:59 4 MG Vital Signs/I&O 12/21/21 19:32 Pulse 85 Resp 16 B/P (MAP) 147/95 (112) Pulse Ox 99 O2 Delivery Room Air Progress Progress Note : Time: 21:16 Progress Note Patient seen and examined, 65-year-old with a chief complaint of swelling and pain and bruising to the right lower extremity. Patient is chronically anticoagulated on Coumadin. Her INR is 2.5 today. She has no significant swelling to the right lower extremity, negative Homans' sign. Distal neurovascularly intact. Good range of motion in all the joints of her right lower extremity. No palpable cords no significant tenderness anywhere to palpation. She points to the distal right lateral thigh posteriorly and the medial popliteal space of the right leg. There is no palpable hematoma or abscess there. The fact that she is therapeutic on her Coumadin is reassuring that there is no DVT. I did offer to schedule her one but she declined. She feels better with the hydrocodone. She also has some right mid thoracic back discomfort, point tender, reproducible. No rashes. Vital signs have been stable. She has no associated symptoms of infection. I have counseled her on warm moist heat, her pain medicine, given her return precautions both she and her family member at the bedside verbalized understanding, are comfortable with the plan of care and the patient is stable for discharge. Departure Impression Primary Impression: Hematoma of right lower extremity Qualified Codes: S80.11XA - Contusion of right lower leg, initial encounter Additional Impressions: Right-sided thoracic back pain Qualified Codes: M54.6 - Pain in thoracic spine Chronic anticoagulation Disposition: 01 HOME, SELF-CARE Condition: Stable Departure-Patient Inst. Decision time for Depature: 21:14 Referrals: [facility] [place] (PCP) Primary Care Physician NATALIYA WALLACE (Family) Primary Care Physician Patient Instructions: Acute Pain, Adult (DC) Add. Discharge Instructions: Warm moist heat will help the area in your back as well as on your right leg. Continue to take your hydrocodone as needed for pain. You need to be taking a stool softener while you are taking narcotic pain medicine. If you develop worse swelling, pain, fever or any other emergent concerning symptoms please come back to the emergency room for reevaluation. Please follow-up with your primary care doctor Copy Copies To 1: JOSE ALBERTO ARIZA KATHRYN M MD Apr 30, 2021 19:49
[2021-04-30 20:59] LABS: INR 2.5 (0.8-1.4); PROTHROMBIN TIME PATIENT 27.5 SEC (12.2-14.7)
[2021-04-30 21:21] VITALS: BP 124/64
== END 2021-04-30 21:21 | disposition home or self-care (01) ==
LOC: EDUNIT# 19:25 → ER 19:26
DX: S80.11XA Contusion of right lower leg, initial encounter (principal); M54.6 Pain in thoracic spine; J45.909 Unspecified asthma, uncomplicated; G47.30 Sleep apnea, unspecified; I10 Essential (primary) hypertension; I25.10 Atherosclerotic heart disease of native coronary artery without angina pectoris; E78.00 Pure hypercholesterolemia, unspecified; E03.9 Hypothyroidism, unspecified; G89.29 Other chronic pain; M54.9 Dorsalgia, unspecified; Z86.711 Personal history of pulmonary embolism; Z86.718 Personal history of other venous thrombosis and embolism; Z79.890 Hormone replacement therapy; Z79.01 Long term (current) use of anticoagulants; Z79.899 Other long term (current) drug therapy; Z79.82 Long term (current) use of aspirin; Z79.891 Long term (current) use of opiate analgesic; X58.XXXA Exposure to other specified factors, initial encounter
CPT/HCPCS: 36415; 85610; 99283

== ENCOUNTER 2021-05-27 16:18 | Emergency (ER) | payer MEDICARE, MEDICAID ==
[~2021-05-27] VITALS: Ht 157.5 cm; Wt 126.6 kg
[2021-05-27] MEDS ORDERED: LACTATED RINGERS 1,000 ML IV ONE (16:36)
--- NOTE | 2021-05-27 16:37 | ED Respiratory ---
General Stated Complaint: COVID+,TROUBLE BREATHING Source: patient Exam Limitations: no limitations History of Present Illness Date Seen by Provider: May 27, 2021 Time Seen by Provider: 16:22 Initial Comments 65-year-old female with past medical history of CAD with stenting, prior PE now on warfarin, hypertension, hyperlipidemia coming in now COVID positives feeling more short of breath. Symptoms started 9 days ago and she tested +7 days ago. She has been trying breathing treatments at home and has been using her CPAP machine as needed. She has also been taking Tylenol Cold and flu which has been helping. Last fever was greater than 24 hours ago. Continues to have nonbloody diarrhea and nausea. No recent vomiting. Cough has continued as well. She was referred here by her PCP due to the increasing shortness of breath. She reports she finished a course of antibiotics and steroids yesterday. Allergies and Home Medications Allergies Coded Allergies: methylprednisolone (Verified Allergy, Mild, 11/05/18) Penicillins (Unverified Allergy, Unknown, 11/05/18) atorvastatin (Verified Allergy, Unknown, 11/05/18) isosorbide (Verified Allergy, Unknown, 11/05/18) ketorolac (Verified Allergy, Unknown, ITCHING, 11/05/18) promethazine (Unverified Allergy, Unknown, hallucinations, 11/05/18) venom-honey bee (Unverified Allergy, Unknown, 11/05/18) Uncoded Allergies: TAPE (Allergy, Unknown, 08/16/13) Patient Home Medication List Home Medication List Reviewed: Yes Acetaminophen (Acetaminophen) 500 Mg Tablet, 500-1,000 MG PO Q8H PRN for PAIN- MILD (1-4), (Reported) Entered as Reported by: YARA JUAREZ on 09/04/15 1558 Albuterol Sulfate (Ventolin Hfa) 18 Gm Hfa.aer.ad, 1 PUFF INH Q4H PRN for SHORTNESS OF BREATH, (Reported) Entered as Reported by: KSENIA PIÑA on 08/19/17 0947 Aspirin (Aspirin EC) 81 Mg Tablet.dr, 81 MG PO HS, (Reported) Entered as Reported by: RAAD LANDRY on 01/30/20 1138 Carboxymethylcellulos/Glycerin (Refresh Optive Eye Drops) 15 Ml Drops, 2 DROPS OU PRN PRN for DRY EYES, (Reported) Entered as Reported by: RAAD LANDRY on 01/30/20 1138 Clopidogrel Bisulfate (Plavix) 75 Mg Tablet, 75 MG PO HS, (Reported) Entered as Reported by: RAAD LANDRY on 01/30/20 1138 Diltiazem HCl (Cartia Xt) 120 Mg Cap.er.24h, 120 MG PO HS, (Reported) Entered as Reported by: RAAD LANDRY on 01/30/20 1138 Hydrocodone/Acetaminophen (Hydrocodone-Acetamin 5-325 mg) 1 Each Tablet, 1 TAB PO Q4H PRN for PAIN-MODERATE (5-7) Prescribed by: SHALOM RAMÍREZ on 02/08/21 1924 Levothyroxine Sodium (Levothyroxine Sodium) 150 Mcg Tablet, 150 MCG PO HS, (Reported) Entered as Reported by: YARA JUAREZ on 09/04/15 1524 Meclizine HCl (Meclizine HCl) 25 Mg Tablet, 25 MG PO TID Prescribed by: SHALOM RAMÍREZ on 12/05/20 1325 Rosuvastatin Calcium (Rosuvastatin Calcium) 20 Mg Tablet, 20 MG PO HS, (Reported) Entered as Reported by: BLAIRE MONTGOMERY on 06/11/20 1649 Warfarin Sodium (Warfarin Sodium) 5 Mg Tablet, 5 MG PO MARIE,TU,WE,CECILLE,FR,SAT, (Reported) Entered as Reported by: YARA JUAREZ on 09/04/15 1542 Warfarin Sodium (Warfarin Sodium) 5 Mg Tablet, 7.5 MG PO MON, (Reported) Entered as Reported by: RAAD LANDRY on 01/30/20 1138 Review of Systems Review of Systems Constitutional: chills, fever EENTM: No blurred vision Respiratory: cough, short of breath Cardiovascular: No chest pain Gastrointestinal: No abdominal pain; diarrhea, nausea; No vomiting Genitourinary: no symptoms reported Musculoskeletal: no symptoms reported Skin: no symptoms reported Psychiatric/Neurological: No Symptoms Reported Hematologic/Lymphatic: No Symptoms Reported Immunological/Allergic: no symptoms reported All Other Systems Reviewed Negative Unless Noted: Yes Past Clelghv-Ogantz-Donjpl Hx Patient Social History Tobacco Use?: No Immunizations Up To Date Tetanus Booster (TDap): Less than 5yrs PED Vaccines UTD: Yes First/Initial COVID19 Vaccinat: NONE Second COVID19 Vaccination Lm: NONE Third COVID19 Vaccination Date: NONE Seasonal Allergies Seasonal Allergies: No Past Medical History Surgery/Hospitalization HX: SURGERY HX API, GALLBLADDER, HYSTERECTOMY, CARDIAC STENTS Surgeries: Yes Appendectomy, Cardiac, Coronary Stent, Gallbladder, Hysterectomy, Orthopedic, Thyroidectomy Respiratory: Yes (HAS CPAP--DOES NOT USE ON REGULAR BASIS; P.E. X2) Asthma, Pulmonary Embolism, Sleep Apnea Currently Using CPAP: No Currently Using BIPAP: No Cardiac: Yes (P.E. 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 Sexually Transmitted Disease: No HIV/AIDS: No Genitourinary: Yes Bladder Infection, Kidney Stones Gastrointestinal: Yes (S/P GENI) Gastroesophageal Reflux, Chronic Constipation, Gall Bladder Disease Musculoskeletal: Yes Degenerate Disk Disease, Arthritis, Back Injury, Chronic Back Pain, Spasms Endocrine: Yes (MORBID OBESITY; THYROIDECTOMY) Hypothyroidsim HEENT: Yes Loss of Vision: Bilateral Hearing Impairment: Denies Cancer: No Colon Psychosocial: No Depression Integumentary: No Blood Disorders: Yes (BLOOD CLOTS-DVT/P.E.'S) Adverse Reaction/Blood Tranf: No Family Medical History Arthritis G8 SISTER Cardiovascular disease 03 FATHER Colon cancer 03 MOTHER Completed stroke 03 MOTHER Hypertension 03 MOTHER G8 BROTHER Myocardial infarction 03 MOTHER Thyroid disease G8 SISTER Physical Exam Vital Signs - First Documented 05/27/21 16:25 Temp 35.8 Pulse 68 Resp 24 B/P (MAP) 147/93 (111) Pulse Ox 100 O2 Delivery Room Air Capillary Refill : Height: 5'2.00" Weight: 297lbs. 8.0oz. 134.169379sp; 51.00 BMI Method:Stated General Appearance: WD/WN, no apparent distress Eyes: Bilateral Eye Normal Inspection HEENT: PERRL/EOMI, normal ENT inspection, pharynx normal Neck: non-tender, full range of motion, supple, normal inspection Respiratory: chest non-tender, lungs clear, normal breath sounds, no respiratory distress, no accessory muscle use Cardiovascular: regular rate, rhythm, no edema, no murmur Gastrointestinal: normal bowel sounds, non tender, soft; No distended, No guarding, No rebound Extremities: normal range of motion, non-tender, normal inspection, no pedal edema, no calf tenderness, normal capillary refill Neurologic/Psychiatric: no motor/sensory deficits, alert, normal mood/affect Skin: normal color, warm/dry Lymphatic: no adenopathy Progress/Results/Core Measures Suspected Sepsis SIRS Temperature: Pulse: Respiratory Rate: Laboratory Tests 05/27/21 16:34: White Blood Count 6.8 Blood Pressure / Mean: Laboratory Tests 05/27/21 16:34: Creatinine 0.79, INR Comment 1.3, Platelet Count 167, Total Bilirubin 0.3 Results/Orders Lab Results Laboratory Tests Test 05/27/21 16:34 Range/Units White Blood Count 6.8 4.3-11.0 10^3/uL Red Blood Count 4.72 3.80-5.11 10^6/uL Hemoglobin 13.7 11.5-16.0 g/dL Hematocrit 44 35-52 % Mean Corpuscular Volume 93 80-99 fL Mean Corpuscular Hemoglobin 29 25-34 pg Mean Corpuscular Hemoglobin Concent 31 L 32-36 g/dL Red Cell Distribution Width 15.8 H 10.0-14.5 % Platelet Count 167 130-400 10^3/uL Mean Platelet Volume 11.1 9.0-12.2 fL Immature Granulocyte % (Auto) 0 % Neutrophils (%) (Auto) 67 42-75 % Lymphocytes (%) (Auto) 25 12-44 % Monocytes (%) (Auto) 8 0-12 % Eosinophils (%) (Auto) 0 0-10 % Basophils (%) (Auto) 0 0-10 % Neutrophils # (Auto) 4.5 1.8-7.8 X 10^3 Lymphocytes # (Auto) 1.7 1.0-4.0 X 10^3 Monocytes # (Auto) 0.6 0.0-1.0 X 10^3 Eosinophils # (Auto) 0.0 0.0-0.3 10^3/uL Basophils # (Auto) 0.0 0.0-0.1 10^3/uL Immature Granulocyte # (Auto) 0.0 0.0-0.1 10^3/uL Prothrombin Time 16.7 H 12.2-14.7 SEC INR Comment 1.3 0.8-1.4 Activated Partial Thromboplast Time 27 24-35 SEC D-Dimer 0.36 0.00-0.49 UG/ML Sodium Level 139 135-145 MMOL/L Potassium Level 3.6 3.6-5.0 MMOL/L Chloride Level 101 98-107 MMOL/L Carbon Dioxide Level 26 21-32 MMOL/L Anion Gap 12 5-14 MMOL/L Blood Urea Nitrogen 15 7-18 MG/DL Creatinine 0.79 0.60-1.30 MG/DL Estimat Glomerular Filtration Rate 84 BUN/Creatinine Ratio 19 Glucose Level 139 H 70-105 MG/DL Calcium Level 8.5 8.5-10.1 MG/DL Corrected Calcium 8.3 L 8.5-10.1 MG/DL Total Bilirubin 0.3 0.1-1.0 MG/DL Aspartate Amino Transf (AST/SGOT) 30 5-34 U/L Alanine Aminotransferase (ALT/SGPT) 25 0-55 U/L Alkaline Phosphatase 107 40-136 U/L Troponin I < 0.30 <0.30 NG/ML C-Reactive Protein 1.89 H <0.50 MG/DL Pro-B-Type Natriuretic Peptide 12.2 <75.0 PG/ML Total Protein 7.0 6.4-8.2 GM/DL Albumin 4.2 3.2-4.5 GM/DL My Orders Orders - ANH GROVER MD Cbc With Automated Diff (05/27/21 16:33) Comprehensive Metabolic Panel (05/27/21 16:33) Fibrin Degradation Products (05/27/21 16:33) Protime With Inr (05/27/21 16:33) Partial Thromboplastin Time (05/27/21 16:33) Probnp Fs (05/27/21 16:33) Crp Fs (05/27/21 16:33) Troponin I Fs (05/27/21 16:33) Chest 1 View Ap/Pa Only (05/27/21 16:33) Lactated Ringers (Lr 1000 Ml Iv Solution (05/27/21 16:45) Ondansetron Injection (Zofran Injectio (05/27/21 16:45) Ed Iv/Invasive Line Start (05/27/21 16:38) Ekg Tracing (05/27/21 16:38) Lactated Ringers (Lr 1000 Ml Iv Solution (05/27/21 16:36) Medications Given in ED Current Medications Medications Dose Ordered Sig/Marcio Route Start Time Stop Time Status Last Admin Dose Admin Ondansetron HCl 4 mg ONCE ONCE IVP 05/27/21 16:45 05/27/21 16:46 DC 05/27/21 16:40 4 MG Vital Signs/I&O 05/27/21 16:25 Temp 35.8 Pulse 68 Resp 24 B/P (MAP) 147/93 (111) Pulse Ox 100 O2 Delivery Room Air Capillary Refill : Progress Note : Progress Note 65-year-old female with above history coming in due to shortness of breath in the setting of being COVID-positive. ABCs were intact and vitals were stable on presentation. She is satting around 96% on room air and her pulse is in the 60s. She is well-appearing. Lungs are clear. Chest x-ray ordered and interpreted by me showing no obvious pneumonia, pneumothorax, cardiac silhouette is stable. EKG without any acute ischemic changes and no changes from her prior. Basic labs including cardiac biomarkers ordered. Her D-dimer is negative and below where she has been previously. When she was previously diagnosed with a PE, her D-dimer was elevated. She also has been on warfarin. Troponin is negative and proBNP is completely normal. Given how well-appearing she is with normal vitals even with ambulation, normal labs, normal x-ray, I believe she is stable for discharge with outpatient follow-up. She was sent home with strict return precautions ECG Initial ECG Impression Date: May 27, 2021 Initial ECG Impression Time: 16:32 Initial ECG Rate: 71 Initial ECG Rhythm: Normal Sinus Comment Narrow QRS, normal axis, no significant ST changes or T wave abnormalities Departure Impression Primary Impression: COVID-19 Additional Impression: Shortness of breath Disposition: 01 HOME, SELF-CARE Condition: Stable Departure-Patient Inst. Decision time for Depature: 17:30 Referrals: [facility] (PCP) Primary Care Physician NATALIYA WALLACE (Family) Primary Care Physician Patient Instructions: COVID-19 Vaccine (mRNA) Quality Systems FDA Fact Sheet (12 years and older), COVID-19 (DC) Add. Discharge Instructions: Your x-ray was good with no signs of pneumonia, and your labs look good and it does not appear like you have had a heart attack. It also does not appear like you have a blood clot today. Please follow-up with your regular doctor in the next couple of days especially if you are not feeling better. ANH GROVER MD May 27, 2021 16:37
[2021-05-27] MEDS ORDERED: LACTATED RINGERS 1,000 ML IV SCH (16:45)
[2021-05-27] MEDS ORDERED: ONDANSETRON 4 MG/2 ML (SDV) Z0FRAN IVP ONE (16:45)
--- NOTE | 2021-05-27 16:51 | Diagnostic Imaging Report ---
INDICATION: Shortness of breath, history of Covid infection. Frontal chest obtained at 0440 p.m. and compared to 12/05/2020. Heart and mediastinal silhouette are normal in appearance. The lungs are clear. There is no pneumothorax or pleural fluid. IMPRESSION: No acute process in the chest. Dictated by: Dictated on workstation # [id number]
[2021-05-27 17:04] LABS: INR 1.3 (0.8-1.4); PROTHROMBIN TIME PATIENT 16.7 SEC (12.2-14.7)
[2021-05-27 17:10] LABS: BASOPHILS % (AUTO) 0 % (0-10); EOSINOPHILS % (AUTO) 0 % (0-10); HEMATOCRIT 44 % (35-52); HEMOGLOBIN 13.7 g/dL (11.5-16.0); LYMPHOCYTES % (AUTO) 25 % (12-44); MEAN CORPUSCULAR HEMOGLOBIN 29 pg (25-34); MEAN CORPUSCULAR HGB CONC 31 g/dL (32-36); MEAN CORPUSCULAR VOLUME 93 fL (80-99); MEAN PLATELET VOLUME 11.1 fL (9.0-12.2); MONOCYTES % (AUTO) 8 % (0-12); NEUTROPHILS % (AUTO) 67 % (42-75); PLATELET COUNT 167 10^3/uL (130-400); WHITE BLOOD COUNT 6.8 10^3/uL (4.3-11.0)
[2021-05-27 17:11] LABS: LYMPHOCYTES # (AUTO) 1.7 X 10^3 (1.0-4.0); MONOCYTES # (AUTO) 0.6 X 10^3 (0.0-1.0); NEUTROPHILS # (AUTO) 4.5 X 10^3 (1.8-7.8)
[2021-05-27 17:13] LABS: FIBRIN DEGRADATION PRODUCTS 0.36 UG/ML (0.00-0.49)
[2021-05-27 17:24] LABS: CHLORIDE 101 MMOL/L (98-107); POTASSIUM 3.6 MMOL/L (3.6-5.0); SODIUM 139 MMOL/L (135-145)
[2021-05-27 17:25] LABS: ALANINE AMINOTRANSFERASE 25 U/L (0-55); ALKALINE PHOSPHATASE 107 U/L (40-136); BILIRUBIN,TOTAL 0.3 MG/DL (0.1-1.0); BUN/CREATININE RATIO 19; CALCIUM 8.5 MG/DL (8.5-10.1); CARBON DIOXIDE 26 MMOL/L (21-32); CREATININE SERUM 0.79 MG/DL (0.60-1.30); GFR ESTIMATED 84; GLUCOSE 139 MG/DL (70-105)
[2021-05-27 17:26] LABS: ALBUMIN 4.2 GM/DL (3.2-4.5)
[2021-05-27 17:33] VITALS: BP 112/66
== END 2021-05-27 17:33 | disposition home or self-care (01) ==
LOC: EDUNIT# 16:18 → ER FS 16:20
DX: U07.1 COVID-19 (principal); G47.30 Sleep apnea, unspecified; I10 Essential (primary) hypertension; I25.10 Atherosclerotic heart disease of native coronary artery without angina pectoris; E78.00 Pure hypercholesterolemia, unspecified; E03.9 Hypothyroidism, unspecified; Z79.890 Hormone replacement therapy; Z86.711 Personal history of pulmonary embolism; Z86.718 Personal history of other venous thrombosis and embolism; Z79.01 Long term (current) use of anticoagulants; Z79.82 Long term (current) use of aspirin; Z79.899 Other long term (current) drug therapy
CPT/HCPCS: 36415; 71045; 80053; 83880; 84484; 85025; 85379; 85610; 85730; 86141; 93005; 96361; 96374

== ENCOUNTER 2021-08-06 15:57 | Emergency (ER) | payer MEDICARE, MEDICAID ==
[~2021-08-06] VITALS: Ht 157 cm; Wt 135.0 kg
[2021-08-06 16:20] LABS: BASOPHILS % (AUTO) 0 % (0-10); EOSINOPHILS # (AUTO) 0.1 10^3/uL (0.0-0.3); EOSINOPHILS % (AUTO) 1 % (0-10); HEMATOCRIT 42 % (35-52); HEMOGLOBIN 13.3 g/dL (11.5-16.0); LYMPHOCYTES # (AUTO) 2.3 10^3/uL (1.0-4.0); LYMPHOCYTES % (AUTO) 22 % (12-44); MEAN CORPUSCULAR HEMOGLOBIN 29 pg (25-34); MEAN CORPUSCULAR HGB CONC 32 g/dL (32-36); MEAN CORPUSCULAR VOLUME 91 fL (80-99); MEAN PLATELET VOLUME 11.1 fL (9.0-12.2); MONOCYTES # (AUTO) 0.7 10^3/uL (0.0-1.0); MONOCYTES % (AUTO) 7 % (0-12); NEUTROPHILS # (AUTO) 7.3 10^3/uL (1.8-7.8); NEUTROPHILS % (AUTO) 70 % (42-75); PLATELET COUNT 223 10^3/uL (130-400); WHITE BLOOD COUNT 10.4 10^3/uL (4.3-11.0)
[2021-08-06 16:32] LABS: MONOCYTES % (MANUAL) 4 %; NEUTROPHILS % (MANUAL) 73 %; PLATELET ESTIMATE NORMAL; RBC MORPH NORMAL
--- NOTE | 2021-08-06 16:38 | Diagnostic Imaging Report ---
INDICATION: Shortness of breath and chest pain. TECHNIQUE/COMPARISON: A frontal chest was obtained at 4:18 PM and compared to 05/27/2021. FINDINGS: There is cardiomegaly. The mediastinal silhouette appears unremarkable. The lungs are clear. There is no pneumothorax or pleural fluid. IMPRESSION: Cardiomegaly with no acute process in the chest. Dictated by: Dictated on workstation # [id number]
[2021-08-06 16:49] LABS: BUN/CREATININE RATIO 16; CALCIUM 10.3 MG/DL (8.5-10.1); CARBON DIOXIDE 23 MMOL/L (21-32); CHLORIDE 101 MMOL/L (98-107); GFR ESTIMATED 97; GLUCOSE 180 MG/DL (70-105); POTASSIUM 4.1 MMOL/L (3.6-5.0); SODIUM 139 MMOL/L (135-145)
[2021-08-06 16:50] LABS: ALANINE AMINOTRANSFERASE 15 U/L (0-55); ALBUMIN 4.4 GM/DL (3.2-4.5); ALKALINE PHOSPHATASE 108 U/L (40-136); BILIRUBIN,TOTAL 0.2 MG/DL (0.1-1.0)
--- NOTE | 2021-08-06 17:46 | ED Chest Pain ---
General Chief Complaint: Chest Pain Stated Complaint: CP,SOA Nursing Triage Note: Patient has presented to ER with cc of left sided sharp chest pain. She reports that he neck is sore and her neck hurts when she turns her head. Source: patient, old records History of Present Illness Date Seen by Provider: Aug 06, 2021 Time Seen by Provider: 17:41 Initial Comments 65-year-old female presenting with complaints of sharp left-sided chest pain and pain to the side of her left neck. The neck pain is worse when she turns her head. The sharp pains in her chest seem to go into her left arm. She states she has had similar pains in the past and usually if she is home she would take nitroglycerin and they would go away. However [place] were [place] going [place] [employer] and she did not have her medicine with her in the vehicle. She had some shortness of breath and nausea associated with the pain. She was worried that it could be her heart causing the pain and symptoms. Since she did not have her medications and it was still another 45 to 50 minutes to get home she stopped to to be evaluated. She follows with Dr. Duggan at [facility] in [place]. Timing/Duration: 1-3 hours Severity/Quality: moderate, sharp Location: other (Left upper chest wall and left side of neck) Radiation: arms (Left arm) Activities at Onset: none Prior CP/Workup: angina, cardiac cath, echocardiography, heart attack ASA po NOVELTY TWISTER TENDER: No NTG SL NOVELTY TWISTER TENDER: No Associated Symptoms: No abdominal pain, No back pain, No diaphoresis, No dizziness, No edema, No fatigue, No fever/chills, No headache, No heartburn; nausea/vomiting (Had some nausea with the pain but no vomiting); No rash; shortness of breath; No swelling/lump in chest, No syncope Allergies and Home Medications Allergies Coded Allergies: methylprednisolone (Verified Allergy, Mild, 11/05/18) Penicillins (Unverified Allergy, Unknown, 11/05/18) atorvastatin (Verified Allergy, Unknown, 11/05/18) isosorbide (Verified Allergy, Unknown, 11/05/18) ketorolac (Verified Allergy, Unknown, ITCHING, 11/05/18) promethazine (Unverified Allergy, Unknown, hallucinations, 11/05/18) venom-honey bee (Unverified Allergy, Unknown, 11/05/18) Uncoded Allergies: TAPE (Allergy, Unknown, 08/16/13) Patient Home Medication List Home Medication List Reviewed: Yes Acetaminophen (Acetaminophen) 500 Mg Tablet, 500-1,000 MG PO Q8H PRN for PAIN- MILD (1-4), (Reported) Entered as Reported by: YARA JUAREZ on 09/04/15 1558 Albuterol Sulfate (Ventolin Hfa) 18 Gm Hfa.aer.ad, 1 PUFF INH Q4H PRN for SHORTNESS OF BREATH, (Reported) Entered as Reported by: KSENIA PIÑA on 08/19/17 0947 Aspirin (Aspirin EC) 81 Mg Tablet.dr, 81 MG PO HS, (Reported) Entered as Reported by: RAAD LANDRY on 01/30/20 1138 Carboxymethylcellulos/Glycerin (Refresh Optive Eye Drops) 15 Ml Drops, 2 DROPS OU PRN PRN for DRY EYES, (Reported) Entered as Reported by: RAAD LANDRY on 01/30/20 1138 Clopidogrel Bisulfate (Plavix) 75 Mg Tablet, 75 MG PO HS, (Reported) Entered as Reported by: RAAD LANDRY on 01/30/20 1138 Diltiazem HCl (Cartia Xt) 120 Mg Cap.er.24h, 120 MG PO HS, (Reported) Entered as Reported by: RAAD LANDRY on 01/30/20 1138 Hydrocodone/Acetaminophen (Hydrocodone-Acetamin 5-325 mg) 1 Each Tablet, 1 TAB PO Q4H PRN for PAIN-MODERATE (5-7) Prescribed by: SHALOM RAMÍREZ on 02/08/21 1924 Levothyroxine Sodium (Levothyroxine Sodium) 150 Mcg Tablet, 150 MCG PO HS, (Reported) Entered as Reported by: YARA JUAREZ on 09/04/15 1524 Meclizine HCl (Meclizine HCl) 25 Mg Tablet, 25 MG PO TID Prescribed by: SHALOM RAMÍREZ on 12/05/20 1325 Rosuvastatin Calcium (Rosuvastatin Calcium) 20 Mg Tablet, 20 MG PO HS, (Reported) Entered as Reported by: BLAIRE MONTGOMERY on 06/11/20 1649 Warfarin Sodium (Warfarin Sodium) 5 Mg Tablet, 5 MG PO MARIE,TU,WE,CECILLE,FR,SAT, (Reported) Entered as Reported by: YARA JUAREZ on 09/04/15 1542 Warfarin Sodium (Warfarin Sodium) 5 Mg Tablet, 7.5 MG PO MON, (Reported) Entered as Reported by: RAAD LANDRY on 01/30/20 1138 Review of Systems Review of Systems Constitutional: No chills, No diaphoresis, No dizziness, No fever EENTM: No Symptoms Reported Respiratory: See HPI Cardiovascular: See HPI Gastrointestinal: See HPI, Nausea; Denies Vomiting Genitourinary: No Symptoms Reported Musculoskeletal: neck pain (Left-sided neck tender to palpation) Skin: No rash Psychiatric/Neurological: Anxiety Endocrine: No Symptoms Reported Past [id number] Hx Patient Social History Tobacco Use?: No Use of E-Cig and/or Vaping dev: No Substance use?: No Alcohol Use?: No Immunizations Up To Date Tetanus Booster (TDap): Less than 5yrs PED Vaccines UTD: Yes First/Initial COVID19 Vaccinat: n/a Second COVID19 Vaccination Lm: n/a Third COVID19 Vaccination Date: n/a Seasonal Allergies Seasonal Allergies: No Past Medical History Surgery/Hospitalization HX: SURGERY HX API, GALLBLADDER, HYSTERECTOMY, CARDIAC STENTS Surgeries: Yes Appendectomy, Cardiac, Coronary Stent, Gallbladder, Hysterectomy, Orthopedic, Thyroidectomy Respiratory: Yes (HAS CPAP--DOES NOT USE ON REGULAR BASIS; P.E. X2) Asthma, Pulmonary Embolism, Sleep Apnea Currently Using CPAP: No Currently Using BIPAP: No Cardiac: Yes (P.E. 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 Sexually Transmitted Disease: No HIV/AIDS: No Genitourinary: Yes Bladder Infection, Kidney Stones Gastrointestinal: Yes (S/P GENI) Gastroesophageal Reflux, Chronic Constipation, Gall Bladder Disease Musculoskeletal: Yes Degenerate Disk Disease, Arthritis, Back Injury, Chronic Back Pain, Spasms Endocrine: Yes (MORBID OBESITY; THYROIDECTOMY) Hypothyroidsim HEENT: Yes Loss of Vision: Bilateral Hearing Impairment: Denies Cancer: No Colon Psychosocial: No Depression Integumentary: No Blood Disorders: Yes (BLOOD CLOTS-DVT/P.E.'S) Adverse Reaction/Blood Tranf: No Family Medical History Arthritis G8 SISTER Cardiovascular disease 03 FATHER Colon cancer 03 MOTHER Completed stroke 03 MOTHER Hypertension 03 MOTHER G8 BROTHER Myocardial infarction 03 MOTHER Thyroid disease G8 SISTER Physical Exam Vital Signs Vital Signs - First Documented 08/06/21 17:16 Temp 37.2 Pulse 73 Resp 15 B/P (MAP) 161/80 (107) Pulse Ox 95 O2 Delivery Room Air Capillary Refill : Height, Weight, BMI Height: 5'2.00" Weight: 297lbs. 8.0oz. 134.598272bl; 54.00 BMI Method:Stated General Appearance: Anxious, Obese HEENT: Pharynx Normal Neck: Full Range of Motion, Normal Inspection, Supple, Tender Lateral (Left lateral tenderness to muscles in neck) Respiratory: Chest Non Tender, Lungs Clear, Normal Breath Sounds, No Accessory Muscle Use, No Respiratory Distress Cardiovascular: Regular Rate, Rhythm, Normal Peripheral Pulses Gastrointestinal: Normal Bowel Sounds, No Pulsatile Mass, Non Tender, Soft Rectal: Deferred Extremity: Normal Capillary Refill, Normal Inspection, No Pedal Edema Neurologic/Psychiatric: Alert, Oriented x3 Skin: Normal Color, Warm/Dry Progress/Results/Core Measures Results/Orders Lab Results Laboratory Tests Test 08/06/21 16:07 08/06/21 18:24 Range/Units White Blood Count 10.4 4.3-11.0 10^3/uL Red Blood Count 4.59 3.80-5.11 10^6/uL Hemoglobin 13.3 11.5-16.0 g/dL Hematocrit 42 35-52 % Mean Corpuscular Volume 91 80-99 fL Mean Corpuscular Hemoglobin 29 25-34 pg Mean Corpuscular Hemoglobin Concent 32 32-36 g/dL Red Cell Distribution Width 15.3 H 10.0-14.5 % Platelet Count 223 130-400 10^3/uL Mean Platelet Volume 11.1 9.0-12.2 fL Immature Granulocyte % (Auto) 0 % Neutrophils (%) (Auto) 70 42-75 % Lymphocytes (%) (Auto) 22 12-44 % Monocytes (%) (Auto) 7 0-12 % Eosinophils (%) (Auto) 1 0-10 % Basophils (%) (Auto) 0 0-10 % Neutrophils # (Auto) 7.3 1.8-7.8 10^3/uL Lymphocytes # (Auto) 2.3 1.0-4.0 10^3/uL Monocytes # (Auto) 0.7 0.0-1.0 10^3/uL Eosinophils # (Auto) 0.1 0.0-0.3 10^3/uL Basophils # (Auto) 0.0 0.0-0.1 10^3/uL Immature Granulocyte # (Auto) 0.0 0.0-0.1 10^3/uL Neutrophils % (Manual) 73 % Lymphocytes % (Manual) 2 % Monocytes % (Manual) 4 % Platelet Estimate NORMAL Blood Morphology Comment NORMAL Sodium Level 139 135-145 MMOL/L Potassium Level 4.1 3.6-5.0 MMOL/L Chloride Level 101 98-107 MMOL/L Carbon Dioxide Level 23 21-32 MMOL/L Anion Gap 15 H 5-14 MMOL/L Blood Urea Nitrogen 11 7-18 MG/DL Creatinine 0.70 0.60-1.30 MG/DL Estimat Glomerular Filtration Rate 97 BUN/Creatinine Ratio 16 Glucose Level 180 H 70-105 MG/DL Calcium Level 10.3 H 8.5-10.1 MG/DL Corrected Calcium 10.0 8.5-10.1 MG/DL Total Bilirubin 0.2 0.1-1.0 MG/DL Aspartate Amino Transf (AST/SGOT) 18 5-34 U/L Alanine Aminotransferase (ALT/SGPT) 15 0-55 U/L Alkaline Phosphatase 108 40-136 U/L Troponin I < 0.30 < 0.30 <0.30 NG/ML Total Protein 8.0 6.4-8.2 GM/DL Albumin 4.4 3.2-4.5 GM/DL My Orders Orders - AMANDEEP HAMMOND MD Cbc And Manual Diff (08/06/21 16:07) Comprehensive Metabolic Panel (08/06/21 16:07) Troponin I Fs (08/06/21 16:07) Chest 1 View Ap/Pa Only (08/06/21 16:07) Ekg Tracing (08/06/21 16:07) Nitroglycerin 0.4 Mg Btl 25's (Nitrostat (08/06/21 18:00) Troponin I Fs (08/06/21 17:58) Medications Given in ED Current Medications Medications Dose Ordered Sig/Marcio Route Start Time Stop Time Status Last Admin Dose Admin Nitroglycerin 1 TAB Q 5 MIN X 3 NEEDED PRN SL 08/06/21 18:00 08/06/21 19:23 DC 08/06/21 18:22 0.4 MG Vital Signs/I&O 08/06/21 08/06/21 17:16 19:13 Temp 37.2 Pulse 73 64 Resp 15 20 B/P (MAP) 161/80 (107) 102/43 Pulse Ox 95 94 O2 Delivery Room Air Room Air Blood Pressure Mean: 107 Progress Progress Note #1: Progress Note Ordered electrocardiogram and chest x-ray with cardiac enzymes and blood work on arrival to the ED. Her electrocardiogram did not demonstrate any acute ST elevation. Overall it appeared similar to prior tracings in the system. Her blood pressure was close to 100 systolic so nitroglycerin was held initially. Progress Note #2: Progress Note Labs appear stable without acute significant normality. Her cardiac enzymes are negative on the initial set. Her chest x-ray does not show any acute process. Her electrocardiogram appears stable from prior tracings. Her blood pressure was improved so will try a dose of nitroglycerin sublingual and repeat the troponin to see if it was changing any. If her troponin remains 0 and is not increasing and her symptoms are improving then we will plan on discharged home to have her follow-up with primary and cardiology for continued evaluation. If she has changes on her troponin or has worsening symptoms then would need to consider admission for cardiac rule out with either [facility] or [facility] Progress Note #3: Progress Note Patient reports that her pain and symptoms resolved with the nitroglycerin. Her repeat troponin was still less than 0.3. Encouraged to follow-up through the clinic and advised that at this point it did not appear that she was having an acute VA. Counseled on follow-up and return precautions Initial ECG Impression Date: Aug 06, 2021 Initial ECG Impression Time: 16:14 Initial ECG Rate: 67 Initial ECG Rhythm: Normal Sinus Initial ECG Comparisson: Unchanged Comment Normal sinus rhythm with a heart rate of 67 bpm. Low voltage in the precordial leads. TX interval [address] elevation. QT interval 439 ms with a QTc interval 464 ms. Overall appears similar to prior tracings in the system. Diagnostic Imaging Diagonstic Imaging: Xray Plain Films/CT/US/NM/MRI: chest Comments [facility]. [place], [place] NAME: OTONIEL DUNAWAY [facility] REC#: [id number] PT STATUS: REG ER : 1955 PHYSICIAN: AMANDEEP HAMMOND MD ADMIT DATE: 08/06/21/ER FS Draft Date of Exam:08/06/21 CHEST 1 VIEW AP/PA ONLY INDICATION: Shortness of breath and chest pain. TECHNIQUE/COMPARISON: A frontal chest was obtained at 4:18 PM and compared to 05/27/2021. FINDINGS: There is cardiomegaly. The mediastinal silhouette appears unremarkable. The lungs are clear. There is no pneumothorax or pleural fluid. IMPRESSION: Cardiomegaly with no acute process in the chest. Dictated on workstation # [id number] Dict: 08/06/21 1629 Trans: 08/06/21 1638 [id number] Interpreted by: DL HIDALGO MD Electronically signed by: Reviewed: Reviewed by Me Departure Impression Primary Impression: Atypical chest pain Additional Impression: Neck pain on left side Disposition: HOME, SELF-CARE Condition: Stable Departure-Patient Inst. Decision time for Depature: 19:07 Referrals: [facility] (PCP) Primary Care Physician NATALIYA WALLACE (Family) Primary Care Physician ALEJANDRA DUGGAN MD Patient Instructions: Neck Pain ED, Chest Pain, Adult ED Add. Discharge Instructions: Continue with your regular medicines and follow up with primary provider and legal compliance officer for continued concerns. Your heart tests did not show signs of new heart attack or blockage and chest xray and electrocardiogram appear stable and similar to tests you have had b efore without acute findings. There could be a muscle component of your pain and you may also have some chronic angina symptoms since you do have to take nitroglycerin at times. If you have worsening symptoms or more severe problems seek medical care or get repeat evaluation. All discharge instructions reviewed with patient and/or family. Voiced understanding. AMANDEEP HAMMOND MD Aug 06, 2021 17:46
[2021-08-06] MEDS ORDERED: NITROGLYCERIN 0.4 MG SL TABS BTL 25'S SL PRN (18:00)
[2021-08-06 19:13] VITALS: BP 102/43
[2021-08-07 07:34] LABS: LYMPHOCYTES % (MANUAL) 23 %
== END 2021-08-06 19:17 | disposition home or self-care (01) ==
LOC: EDUNIT# 15:57 → ER FS 15:58
DX: R07.89 Other chest pain (principal); M54.2 Cervicalgia; E66.01 Morbid (severe) obesity due to excess calories; Z68.43 Body mass index [BMI] 50.0-59.9, adult
CPT/HCPCS: 36415; 71045; 80053; 84484; 85007; 85027; 93005

== ENCOUNTER 2021-09-12 19:17 | Observation (INO) | payer MEDICARE, MEDICAID ==
[~2021-09-12] VITALS: Ht 157.5 cm; Wt 135.5 kg
[2021-09-12] MEDS ORDERED: ONDANSETRON 4 MG/2 ML (SDV) Z0FRAN IVP ONE (19:30)
[2021-09-12] MEDS ORDERED: ASPIRIN 81 MG CHEW (CHILDREN'S ASA) PO ONE (19:30)
--- NOTE | 2021-09-12 19:30 | ED Chest Pain ---
General Chief Complaint: Chest Pain Stated Complaint: CP Source: patient Exam Limitations: no limitations History of Present Illness Date Seen by Provider: September 12, 2021 Time Seen by Provider: 19:18 Initial Comments Patient presents ER by private conveyance from [facility] where she was doing some shopping and a few minutes prior to arrival she started experiencing some chest pain in her left chest and along her back both sides and radiating down her left arm. She is [facility] and has a history of a couple stents placed. She is not a smoker and has history of high cholesterol but no problems with her blood pressure. She has a history of hypothyroidism and is on warfarin as well as Plavix but not diabetic. She has not had any aspirin today. She did have a nitroglycerin patch that she put on just prior to coming into the ER because of the severity of her pain and it has helped some but now she is nauseated. She has a history of asthma but no shortness of air, exertional dyspnea. She has been having couple hour-long episodes of chest pain just like this since Thursday. Allergies and Home Medications Allergies Coded Allergies: methylprednisolone (Verified Allergy, Mild, 11/05/18) Penicillins (Unverified Allergy, Unknown, 11/05/18) atorvastatin (Verified Allergy, Unknown, 11/05/18) isosorbide (Verified Allergy, Unknown, 11/05/18) ketorolac (Verified Allergy, Unknown, ITCHING, 11/05/18) promethazine (Unverified Allergy, Unknown, hallucinations, 11/05/18) venom-honey bee (Unverified Allergy, Unknown, 11/05/18) Uncoded Allergies: TAPE (Allergy, Unknown, 08/16/13) Patient Home Medication List Home Medication List Reviewed: Yes Acetaminophen (Acetaminophen) 500 Mg Tablet, 500-1,000 MG PO Q8H PRN for PAIN- MILD (1-4), (Reported) Entered as Reported by: YARA JUAREZ on 09/04/15 1558 Albuterol Sulfate (Ventolin Hfa) 18 Gm Hfa.aer.ad, 1 PUFF INH Q4H PRN for SHORTNESS OF BREATH, (Reported) Entered as Reported by: KSENIA PIÑA on 08/19/17 0947 Aspirin (Aspirin EC) 81 Mg Tablet.dr, 81 MG PO HS, (Reported) Entered as Reported by: RAAD LANDRY on 01/30/20 1138 Carboxymethylcellulos/Glycerin (Refresh Optive Eye Drops) 15 Ml Drops, 2 DROPS OU PRN PRN for DRY EYES, (Reported) Entered as Reported by: RAAD LANDRY on 01/30/20 1138 Clopidogrel Bisulfate (Plavix) 75 Mg Tablet, 75 MG PO HS, (Reported) Entered as Reported by: RAAD LANDRY on 01/30/20 1138 Diltiazem HCl (Cartia Xt) 120 Mg Cap.er.24h, 120 MG PO HS, (Reported) Entered as Reported by: RAAD LANDRY on 01/30/20 1138 Hydrocodone/Acetaminophen (Hydrocodone-Acetamin 5-325 mg) 1 Each Tablet, 1 TAB PO Q4H PRN for PAIN-MODERATE (5-7) Prescribed by: SHALOM RAMÍREZ on 02/08/21 1924 Levothyroxine Sodium (Levothyroxine Sodium) 150 Mcg Tablet, 150 MCG PO HS, (Reported) Entered as Reported by: YARA JUAREZ on 09/04/15 1524 Meclizine HCl (Meclizine HCl) 25 Mg Tablet, 25 MG PO TID Prescribed by: SHALOM RAMÍREZ on 12/05/20 1325 Rosuvastatin Calcium (Rosuvastatin Calcium) 20 Mg Tablet, 20 MG PO HS, (Reported) Entered as Reported by: BLAIRE MONTGOMERY on 06/11/20 1649 Warfarin Sodium (Warfarin Sodium) 5 Mg Tablet, 5 MG PO MARIE,TU,WE,CECILLE,FR,SAT, (Reported) Entered as Reported by: YARA JUAREZ on 09/04/15 1542 Warfarin Sodium (Warfarin Sodium) 5 Mg Tablet, 7.5 MG PO MON, (Reported) Entered as Reported by: RAAD LANDRY on 01/30/20 1138 Review of Systems Review of Systems Constitutional: No chills, No diaphoresis EENTM: No Blurred Vision, No Eye Pain Respiratory: Denies Cough, Denies Shortness of Air Cardiovascular: See HPI, Chest Pain; Denies Lightheadedness Gastrointestinal: Denies Constipated, Denies Diarrhea, Denies Nausea Genitourinary: Denies Burning, Denies Discharge Musculoskeletal: No back pain, No joint pain All Other Systems Reviewed Negative Unless Noted: Yes Past Zlkkgex-Cgkqkx-Frbspn Hx Patient Social History Tobacco Use?: No Use of E-Cig and/or Vaping dev: No Substance use?: No Immunizations Up To Date Tetanus Booster (TDap): Less than 5yrs PED Vaccines UTD: Yes First/Initial COVID19 Vaccinat: n/a Second COVID19 Vaccination Lm: n/a Third COVID19 Vaccination Date: n/a Seasonal Allergies Seasonal Allergies: No Past Medical History Surgery/Hospitalization HX: SURGERY HX API, GALLBLADDER, HYSTERECTOMY, CARDIAC STENTS Surgeries: Yes Appendectomy, Cardiac, Coronary Stent, Gallbladder, Hysterectomy, Orthopedic, Thyroidectomy Respiratory: Yes (HAS CPAP--DOES NOT USE ON REGULAR BASIS; P.E. X2) Asthma, Pulmonary Embolism, Sleep Apnea Currently Using CPAP: No Currently Using BIPAP: No Cardiac: Yes (P.E. 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 Sexually Transmitted Disease: No HIV/AIDS: No Genitourinary: Yes Bladder Infection, Kidney Stones Gastrointestinal: Yes (S/P GENI) Gastroesophageal Reflux, Chronic Constipation, Gall Bladder Disease Musculoskeletal: Yes Degenerate Disk Disease, Arthritis, Back Injury, Chronic Back Pain, Spasms Endocrine: Yes (MORBID OBESITY; THYROIDECTOMY) Hypothyroidsim HEENT: Yes Loss of Vision: Bilateral Hearing Impairment: Denies Cancer: No Colon Psychosocial: No Depression Integumentary: No Blood Disorders: Yes (BLOOD CLOTS-DVT/P.E.'S) Adverse Reaction/Blood Tranf: No Family Medical History Arthritis G8 SISTER Cardiovascular disease 03 FATHER Colon cancer 03 MOTHER Completed stroke 03 MOTHER Hypertension 03 MOTHER G8 BROTHER Myocardial infarction 03 MOTHER Thyroid disease G8 SISTER Physical Exam Vital Signs Vital Signs - First Documented 09/12/21 19:26 Temp 35.6 Pulse 78 Resp 20 B/P (MAP) 137/62 (87) Pulse Ox 96 O2 Delivery Room Air Capillary Refill : Height, Weight, BMI Height: 5'2.00" Weight: 297lbs. 8.0oz. 134.869714uv; 54.00 BMI Method:Stated General Appearance: Anxious, Mild Distress, Obese HEENT: PERRL/EOMI, Pharynx Normal, Moist Mucous Membranes Neck: Full Range of Motion, Normal Inspection Respiratory: Chest Non Tender, Lungs Clear, Normal Breath Sounds, No Accessory Muscle Use, No Respiratory Distress Cardiovascular: Regular Rate, Rhythm, No Edema, Normal Peripheral Pulses Gastrointestinal: Normal Bowel Sounds, Non Tender, Soft Extremity: Normal Capillary Refill, Normal Inspection, No Pedal Edema Neurologic/Psychiatric: Alert, Oriented x3 Skin: Normal Color, Warm/Dry Progress/Results/Core Measures Results/Orders Lab Results Laboratory Tests Test 09/12/21 19:28 09/12/21 20:12 Range/Units White Blood Count 9.1 4.3-11.0 10^3/uL Red Blood Count 4.33 3.80-5.11 10^6/uL Hemoglobin 12.7 11.5-16.0 g/dL Hematocrit 40 35-52 % Mean Corpuscular Volume 93 80-99 fL Mean Corpuscular Hemoglobin 29 25-34 pg Mean Corpuscular Hemoglobin Concent 31 L 32-36 g/dL Red Cell Distribution Width 15.2 H 10.0-14.5 % Platelet Count 231 130-400 10^3/uL Mean Platelet Volume 10.9 9.0-12.2 fL Immature Granulocyte % (Auto) 1 % Neutrophils (%) (Auto) 69 42-75 % Lymphocytes (%) (Auto) 22 12-44 % Monocytes (%) (Auto) 7 0-12 % Eosinophils (%) (Auto) 1 0-10 % Basophils (%) (Auto) 0 0-10 % Neutrophils # (Auto) 6.3 1.8-7.8 10^3/uL Lymphocytes # (Auto) 2.0 1.0-4.0 10^3/uL Monocytes # (Auto) 0.6 0.0-1.0 10^3/uL Eosinophils # (Auto) 0.1 0.0-0.3 10^3/uL Basophils # (Auto) 0.0 0.0-0.1 10^3/uL Immature Granulocyte # (Auto) 0.1 0.0-0.1 10^3/uL Prothrombin Time 17.9 H 12.2-14.7 SEC INR Comment 1.4 0.8-1.4 Activated Partial Thromboplast Time 33 24-35 SEC D-Dimer 0.13 0.00-0.49 UG/ML Sodium Level 140 135-145 MMOL/L Potassium Level 3.7 3.6-5.0 MMOL/L Chloride Level 103 98-107 MMOL/L Carbon Dioxide Level 24 21-32 MMOL/L Anion Gap 13 5-14 MMOL/L Blood Urea Nitrogen 14 7-18 MG/DL Creatinine 0.85 0.60-1.30 MG/DL Estimat Glomerular Filtration Rate 77 BUN/Creatinine Ratio 16 Glucose Level 202 H 70-105 MG/DL Calcium Level 8.9 8.5-10.1 MG/DL Corrected Calcium 8.8 8.5-10.1 MG/DL Magnesium Level 2.3 1.6-2.4 MG/DL Total Bilirubin 0.3 0.1-1.0 MG/DL Aspartate Amino Transf (AST/SGOT) 16 5-34 U/L Alanine Aminotransferase (ALT/SGPT) 18 0-55 U/L Alkaline Phosphatase 91 40-136 U/L Myoglobin 34.4 10.0-92.0 NG/ML Troponin I < 0.028 <0.028 NG/ML B-Type Natriuretic Peptide < 10.0 <100.0 PG/ML Total Protein 7.8 6.4-8.2 GM/DL Albumin 4.1 3.2-4.5 GM/DL Lipase 50 8-78 U/L Urine Color YELLOW Urine Clarity CLEAR Urine pH 5.5 5-9 Urine Specific [place] >=1.030 1.016-1.022 Urine Protein NEGATIVE NEGATIVE Urine Glucose (UA) NEGATIVE NEGATIVE Urine Ketones NEGATIVE NEGATIVE Urine Nitrite NEGATIVE NEGATIVE Urine Bilirubin NEGATIVE NEGATIVE Urine Urobilinogen 0.2 < = 1.0 MG/DL Urine Leukocyte Esterase NEGATIVE NEGATIVE Urine RBC (Auto) NEGATIVE NEGATIVE Urine RBC NONE /HPF Urine WBC 0-2 /HPF Urine Squamous Epithelial Cells 2-5 /HPF Urine Crystals NONE /LPF Urine Bacteria MODERATE H /HPF Urine Casts NONE /LPF Urine Mucus SMALL H /LPF Urine Culture Indicated YES My Orders Orders - VIPIN LEARY Ekg Tracing (09/12/21 19:18) Continuous Ekg Monitoring (09/12/21 19:18) Cbc With Automated Diff (09/12/21 19:25) Magnesium (09/12/21 19:25) Chest 1 View, Ap/Pa Only (09/12/21 19:25) Comprehensive Metabolic Panel (09/12/21 19:25) Myoglobin Serum (09/12/21 19:25) Protime With Inr (09/12/21 19:25) Partial Thromboplastin Time (09/12/21 19:25) O2 (09/12/21 19:25) Ed Iv/Invasive Line Start (09/12/21 19:25) Lipase (09/12/21 19:25) Bnp Nelly (09/12/21 19:25) Fibrin Degradation Products (09/12/21 19:25) Aspirin Chewable Tablet (Baby Aspirin Ch (09/12/21 19:30) Ondansetron Injection (Zofran Injectio (09/12/21 19:30) Ua Culture If Indicated (09/12/21 19:53) Morphine Injection (Morphine Injection (09/12/21 19:57) Troponin I Nelly (09/12/21 19:28) Morphine Injection (Morphine Injection (09/12/21 20:56) Ed Iv/Invasive Line Start (09/12/21 20:59) Ns Iv 500 Ml (Sodium Chloride 0.9%) (09/12/21 21:00) Iohexol Injection (Omnipaque 350 Mg/Ml 1 (09/12/21 21:15) Ns (Ivpb) (Sodium Chloride 0.9% Ivpb Bag (09/12/21 21:15) Sodium Chloride Flush (Catheter Flush Sy (09/12/21 21:15) Ct Luís Chest/Noang Abd-Pelv W (09/12/21 20:57) Urine Culture (09/12/21 20:12) Ed Admission (Communication) (09/12/21 22:16) Medications Given in ED Current Medications Medications Dose Ordered Sig/Marcio Route Start Time Stop Time Status Last Admin Dose Admin Aspirin 324 mg ONCE ONCE PO 09/12/21 19:30 09/12/21 19:31 DC 09/12/21 19:30 324 MG Iohexol 100 ml ONCE ONCE IV 09/12/21 21:15 09/12/21 21:16 DC 09/12/21 21:12 88 ML Ondansetron HCl 8 mg ONCE ONCE IVP 09/12/21 19:30 09/12/21 19:31 DC 09/12/21 19:30 8 MG Sodium Chloride 10 ml NEEDED PRN IV 09/12/21 21:15 09/12/21 21:12 10 ML Sodium Chloride 100 ml ONCE ONCE IV 09/12/21 21:15 09/12/21 21:16 DC 09/12/21 21:12 70 ML Sodium Chloride 500 ml @ 0 mls/hr Q0M ONCE IV 09/12/21 21:00 09/12/21 21:01 DC 09/12/21 21:05 500 MLS/HR Vital Signs/I&O 09/12/21 09/12/21 09/12/21 19:26 20:02 21:02 Temp 35.6 35.6 35.6 Pulse 78 Resp 20 B/P (MAP) 137/62 (87) Pulse Ox 96 O2 Delivery Room Air 09/13/21 00:00 Intake Total 500 ml Balance 500 ml Progress Progress Note #1: Time: 19:28 Progress Note 3 and 24 mg of aspirin chew and swallow, check some labs to consider possibility of heart, aorta, lungs etc. Lung sounds are clear and she has good vital signs without evidence of increased work of breathing. She has a nitroglycerin patch in place which we will let her keep. Her presenting blood pressure is 137/62. EKG does not reveal any ischemia. Progress Note #2: Time: 21:19 Progress Note Patient's blood pressure dipped so he took the nitroglycerin patch off. We gave her 2 mg of morphine which helped some but her pain started to come back so we gave her another 4 mg. We sent her over for CT of her chest and she is having pain in her back radiating around to the left anterior chest going down her left arm. Gave her little fluids through her IV to help takes out the contrast. 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 She had her gallbladder out but a referred pain might present to her left shoulder blade. We will check a lipase. Discussed the case with Dr. Culeln who agrees to observe the patient with cardiac consultation and she will put in queued orders. Initial ECG Impression Date: September 12, 2021 Initial ECG Impression Time: 19:24 Initial ECG Rate: 75 Initial ECG Rhythm: Normal Sinus Initial ECG Intervals: Normal Initial ECG Impression: Normal Comment Normal sinus rhythm without clinically relevant ST changes. Diagnostic Imaging Diagonstic Imaging: Xray Plain Films/CT/US/NM/MRI: chest Comments [facility], [place] NAME: OTONIEL DUNAWAY [facility] REC#: [id number] PT STATUS: REG ER : 1955 PHYSICIAN: VIPIN LEARY MD ADMIT DATE: 09/12/21/ER Signed Date of Exam:09/12/21 CHEST 1 VIEW, AP/PA ONLY EXAMINATION: Chest 1 view. HISTORY: Chest pain. COMPARISON: 08/06/2021. FINDINGS: Stable enlargement of the cardiac silhouette. The lungs are clear without consolidation, pleural effusion or pneumothorax. The osseous structures are intact. Surgical changes from cervical fusion. IMPRESSION: No acute radiographic abnormality in the chest. Dictated by: Dictated on workstation # [id number] Dict: 09/12/211945 Trans: 09/12/211948 [facility] [id number] Interpreted by: JES OLIVAS DO Electronically signed by: JES OLIVAS DO 09/12/211948 Reviewed: Reviewed by [place] Diagonstic Imaging: CT Plain Films/CT/US/NM/MRI: chest, abdomen, pelvis Comments [facility] [place] [place] NAME: OTONIEL DUNAWAY [facility] REC#: [id number] PT STATUS: ADM Nan : 1955 PHYSICIAN: VIPIN LEARY MD ADMIT DATE: 09/12/21/ICU Signed Date of Exam:09/12/21 CT LUÍS CHEST/NOANG ABD-PELV W PE suspected, high probability. TECHNIQUE: CTA chest, abdomen and pelvis. Thin axial sections through the chest, abdomen and pelvis are obtained following intravenous contrast bolus. Multiplanar MIP images were reconstructed and reviewed. All CT scans use one or more of the following dose optimizing techniques: automated exposure control, MA and/or KvP adjustment based on patient size and exam type or iterative reconstruction. INDICATION: 65-year-old female, chest pain intermittently for several days. History of colon cancer post colon resection. CORRELATION STUDY: CTA chest 06/11/2020, CT abdomen an pelvis 12/15/2018. FINDINGS: CTA CHEST: Heart size is enlarged but without disproportionate right heart strain. Thoracic aorta unremarkable apart from mild wall calcification. No pathologically enlarged mediastinal lymph nodes. No significant pulmonary artery defect to suggest pulmonary embolism. Lung chacon with minimal basilar atelectasis. No consolidating infiltrate. No concerning pulmonary mass. No significant effusion. CT ABDOMEN and PELVIS: Liver enlarged with mild steatosis. No focal lesion. Gallbladder absent. Spleen mildly enlarged. Pancreas, adrenal glands and kidneys demonstrate no acute findings. Small nonobstructing bilateral renal stones. Abdominal aorta with moderate wall calcification, nonaneurysmal. No definitive pathologically enlarged aortocaval lymph nodes. Stomach is distended with retained gastric contents, fluid and gas. No suggestion for small bowel obstruction. There is mild distention through the colon. Significant redundancy of the distal colon. No abdominal ascites and/or free air. Urinary bladder is decompressed. Uterus is absent. IMPRESSION: CTA CHEST: 1. No CT evidence for pulmonary embolism or acute abnormality of the chest. CT ABDOMEN and PELVIS: 1. Rather significant distention of the stomach with ingested material. No small bowel obstruction. Colonic diverticulosis without evidence for acute diverticulitis. 2. Nonobstructing bilateral renal stones. 3. Hepatosplenomegaly. Dictated by: Dictated on workstation # [id number] Dict: 09/12/212202 Trans: 09/12/212331 [facility] [id number] Interpreted by: LATESHA VARELA DO Electronically signed by: LATESHA VARELA DO 09/12/212331 Reviewed: Reviewed by Me Departure Communication (Admissions) Time/Spoke to Admitting Phy: 21:20 Discussed the case with Dr. Cullen who agrees to observe the patient with cardiac consultation and she will put in queued orders. Pending imaging results. Time/Spoke to Consulting Phy: 22:20 Discussed the case with Dr. Jackson and he agrees to consult on the case. N.p.o. at midnight. Impression Primary Impression: Unstable angina Disposition: ADMITTED INPATIENT Condition: Stable Admissions Decision to Admit Reason: Admit from ER (General) Decision to Admit/Date: September 12, 2021 Time/Decision to Admit Time: 21:21 Departure-Patient Inst. Referrals: [facility] (PCP) Primary Care Physician NATALIYA WALLACE (Family) Primary Care Physician VIPIN LEARY September 12, 2021 19:30
--- NOTE | 2021-09-12 19:48 | Diagnostic Imaging Report ---
EXAMINATION: Chest 1 view. HISTORY: Chest pain. COMPARISON: 08/06/2021. FINDINGS: Stable enlargement of the cardiac silhouette. The lungs are clear without consolidation, pleural effusion or pneumothorax. The osseous structures are intact. Surgical changes from cervical fusion. IMPRESSION: No acute radiographic abnormality in the chest. Dictated by: Dictated on workstation # [id number]
[2021-09-12] MEDS ORDERED: morphine INJ 10 MG/ML 1ML (SYR OR VIAL) IVP STA ×2 (19:57→20:56)
[2021-09-12 20:00] LABS: BASOPHILS % (AUTO) 0 % (0-10); EOSINOPHILS # (AUTO) 0.1 10^3/uL (0.0-0.3); EOSINOPHILS % (AUTO) 1 % (0-10); HEMATOCRIT 40 % (35-52); HEMOGLOBIN 12.7 g/dL (11.5-16.0); LYMPHOCYTES % (AUTO) 22 % (12-44); MEAN CORPUSCULAR HEMOGLOBIN 29 pg (25-34); MEAN CORPUSCULAR HGB CONC 31 g/dL (32-36); MEAN CORPUSCULAR VOLUME 93 fL (80-99); MEAN PLATELET VOLUME 10.9 fL (9.0-12.2); MONOCYTES # (AUTO) 0.6 10^3/uL (0.0-1.0); MONOCYTES % (AUTO) 7 % (0-12); NEUTROPHILS # (AUTO) 6.3 10^3/uL (1.8-7.8); NEUTROPHILS % (AUTO) 69 % (42-75); PLATELET COUNT 231 10^3/uL (130-400); WHITE BLOOD COUNT 9.1 10^3/uL (4.3-11.0)
[2021-09-12 20:14] LABS: ALBUMIN 4.1 GM/DL (3.2-4.5); INR 1.4 (0.8-1.4); PROTHROMBIN TIME PATIENT 17.9 SEC (12.2-14.7)
[2021-09-12 20:15] LABS: CHLORIDE 103 MMOL/L (98-107); POTASSIUM 3.7 MMOL/L (3.6-5.0); SODIUM 140 MMOL/L (135-145)
[2021-09-12 20:16] LABS: CALCIUM 8.9 MG/DL (8.5-10.1)
[2021-09-12 20:17] LABS: GLUCOSE 202 MG/DL (70-105); TOTAL PROTEIN 7.8 GM/DL (6.4-8.2)
[2021-09-12 20:18] LABS: CARBON DIOXIDE 24 MMOL/L (21-32)
[2021-09-12 20:19] LABS: BILIRUBIN,TOTAL 0.3 MG/DL (0.1-1.0)
[2021-09-12 20:20] LABS: ALKALINE PHOSPHATASE 91 U/L (40-136)
[2021-09-12 20:21] LABS: CREATININE SERUM 0.85 MG/DL (0.60-1.30); GFR ESTIMATED 77
[2021-09-12 20:22] LABS: BUN/CREATININE RATIO 16
[2021-09-12 20:23] LABS: ALANINE AMINOTRANSFERASE 18 U/L (0-55)
[2021-09-12 20:23] LABS: BILIRUBIN,URINE NEGATIVE (NEGATIVE); CLARITY,URINE CLEAR; COLOR,URINE YELLOW; GLUCOSE, URINE (UA) NEGATIVE (NEGATIVE); KETONES,URINE NEGATIVE (NEGATIVE); LEUKOCYTE ESTERASE ,URINE NEGATIVE (NEGATIVE); NITRITE,URINE NEGATIVE (NEGATIVE); PH,URINE 5.5 (5-9); PROTEIN,URINE NEGATIVE (NEGATIVE)
[2021-09-12 20:24] LABS: MAGNESIUM 2.3 MG/DL (1.6-2.4)
[2021-09-12 20:25] LABS: LIPASE 50 U/L (8-78)
[2021-09-12] MEDS ORDERED: NS IV 500 ML 500 ML IV ONE (21:00)
[2021-09-12] MEDS ORDERED: NS 100 ML (IVPB) BAG IV ONE (21:15)
[2021-09-12] MEDS ORDERED: CATHETER FLUSH 10 ML SYR IV PRN (21:15)
[2021-09-12] MEDS ORDERED: IOHEXOL 350 MG/ML 100 ML (OMNIPAQUE 350) VIAL IV ONE (21:15)
[2021-09-12 21:29] LABS: BACTERIA,URINE MODERATE /HPF; WBC,URINE 0-2 /HPF
--- NOTE | 2021-09-12 22:34 | Diagnostic Imaging Report ---
PE suspected, high probability. TECHNIQUE: CTA chest, abdomen and pelvis. Thin axial sections through the chest, abdomen and pelvis are obtained following intravenous contrast bolus. Multiplanar MIP images were reconstructed and reviewed. All CT scans use one or more of the following dose optimizing techniques: automated exposure control, MA and/or KvP adjustment based on patient size and exam type or iterative reconstruction. INDICATION: 65-year-old female, chest pain intermittently for several days. History of colon cancer post colon resection. CORRELATION STUDY: CTA chest 06/11/2020, CT abdomen an pelvis 12/15/2018. FINDINGS: CTA CHEST: Heart size is enlarged but without disproportionate right heart strain. Thoracic aorta unremarkable apart from mild wall calcification. No pathologically enlarged mediastinal lymph nodes. No significant pulmonary artery defect to suggest pulmonary embolism. Lung chacon with minimal basilar atelectasis. No consolidating infiltrate. No concerning pulmonary mass. No significant effusion. CT ABDOMEN and PELVIS: Liver enlarged with mild steatosis. No focal lesion. Gallbladder absent. Spleen mildly enlarged. Pancreas, adrenal glands and kidneys demonstrate no acute findings. Small nonobstructing bilateral renal stones. Abdominal aorta with moderate wall calcification, nonaneurysmal. No definitive pathologically enlarged aortocaval lymph nodes. Stomach is distended with retained gastric contents, fluid and gas. No suggestion for small bowel obstruction. There is mild distention through the colon. Significant redundancy of the distal colon. No abdominal ascites and/or free air. Urinary bladder is decompressed. Uterus is absent. IMPRESSION: CTA CHEST: 1. No CT evidence for pulmonary embolism or acute abnormality of the chest. CT ABDOMEN and PELVIS: 1. Rather significant distention of the stomach with ingested material. No small bowel obstruction. Colonic diverticulosis without evidence for acute diverticulitis. 2. Nonobstructing bilateral renal stones. 3. Hepatosplenomegaly. Dictated by: Dictated on workstation # [id number]
[2021-09-12] MEDS ORDERED: NITROGLYCERIN 2% OINT 1 GM UNIT DOSE PACKET TOP ONE (22:45)
[2021-09-12] MEDS ORDERED: NS IV 1000 ML 1,000 ML IV SCH (23:15)
[2021-09-12] MEDS ORDERED: ONDANSETRON 4 MG/2 ML (SDV) Z0FRAN IV PRN (23:15)
[2021-09-12] MEDS ORDERED: BISACODYL 10 MG SUPP (DULCOLAX) PR PRN (23:15)
[2021-09-12] MEDS ORDERED: MELATONIN 3 MG TABLET PO PRN (23:15)
[2021-09-12] MEDS ORDERED: polyethylene glycoL POWDER 17 GM (MIRALAX) PACK PO PRN (23:15)
[2021-09-12] MEDS ORDERED: LACTULOSE SYRUP 10GM/15ML (ENULOSE) 30ML UDC PO PRN (23:15)
[2021-09-12] MEDS ORDERED: morphine INJ 4 MG/ML 1 ML (VIAL/SYRINGE) IV PRN (23:15)
[2021-09-12] MEDS ORDERED: PATIENT MAY USE OWN MEDS, ALL PO SCH (23:15)
[2021-09-12] MEDS ORDERED: MILK OF MAGNESIA 400 MG/5 ML 30 ML UDC PO PRN (23:15)
[2021-09-12] MEDS ORDERED: diphenhydrAMINE 25 MG TAB (BENADRYL) PO PRN (23:15)
[2021-09-12] MEDS ORDERED: ONDANSETRON 4 MG (ZOFRAN) ORAL DISSOLVE TAB PO PRN (23:15)
[2021-09-12] MEDS ORDERED: diphenhydrAMINE 50 MG/ML INJ (BENADRYL) IVP PRN (23:15)
[2021-09-12] MEDS ORDERED: CALCIUM CARBONATE 500 MG (TUMS) TAB.CHEW PO PRN (23:15)
[2021-09-12] MEDS ORDERED: ANTACID SUSP 30 ML UDC (MYLANTA) PO PRN (23:15)
[2021-09-12] MEDS ORDERED: NITROGLYCERIN 0.4 MG SL TABS BTL 25'S SL PRN (23:15)
[2021-09-12] MEDS ORDERED: ACETAMINOPHEN 325 MG TABLET PO PRN (23:15)
[2021-09-12] MEDS ORDERED: ENOXAPARIN 100 MG/1 ML (LOVENOX) SYR SC SCH ×3 (23:30→23:45)
[2021-09-12] MEDS ORDERED: ENOXAPARIN 40 MG/0.4 ML (LOVENOX) SYR SC SCH (23:30)
[2021-09-12 23:42] VITALS: BP 125/63
[2021-09-13] VITALS (13 sets, daily range): BP systolic 94–161; BP diastolic 50–81
[2021-09-13] MEDS ORDERED: RT-ALBUTEROL SULF 2.5 MG/3 ML PRE-MIX VIAL INH PRN (01:15)
[2021-09-13 04:43] LABS: BASOPHILS % (AUTO) 0 % (0-10); EOSINOPHILS # (AUTO) 0.1 10^3/uL (0.0-0.3); EOSINOPHILS % (AUTO) 1 % (0-10); HEMATOCRIT 36 % (35-52); HEMOGLOBIN 11.1 g/dL (11.5-16.0); LYMPHOCYTES # (AUTO) 3.1 10^3/uL (1.0-4.0); LYMPHOCYTES % (AUTO) 33 % (12-44); MEAN CORPUSCULAR HEMOGLOBIN 29 pg (25-34); MEAN CORPUSCULAR HGB CONC 31 g/dL (32-36); MEAN CORPUSCULAR VOLUME 95 fL (80-99); MEAN PLATELET VOLUME 11.2 fL (9.0-12.2); MONOCYTES # (AUTO) 0.6 10^3/uL (0.0-1.0); MONOCYTES % (AUTO) 7 % (0-12); NEUTROPHILS # (AUTO) 5.4 10^3/uL (1.8-7.8); NEUTROPHILS % (AUTO) 58 % (42-75); PLATELET COUNT 190 10^3/uL (130-400); WHITE BLOOD COUNT 9.3 10^3/uL (4.3-11.0)
[2021-09-13 04:57] LABS: ALBUMIN 3.5 GM/DL (3.2-4.5); INR 1.6 (0.8-1.4); PROTHROMBIN TIME PATIENT 19.9 SEC (12.2-14.7)
[2021-09-13 04:58] LABS: CALCIUM 7.9 MG/DL (8.5-10.1)
[2021-09-13 05:00] LABS: TOTAL PROTEIN 6.6 GM/DL (6.4-8.2)
[2021-09-13 05:01] LABS: BILIRUBIN,TOTAL 0.2 MG/DL (0.1-1.0)
[2021-09-13 05:03] LABS: CREATININE SERUM 0.79 MG/DL (0.60-1.30)
[2021-09-13] MEDS: inSUlin ASPART (NovoLOG) 1 UNIT/0.01 ML (CHARGE PER UNIT) SC SCH ×2 (05:36→11:00)
--- NOTE | 2021-09-13 07:05 | Short Stay Summary-Hospitalist ---
History of Present Illness HPI/Chief Complaint CC: Chest pain HPI: This is a 65 yr old WF morbidly obese pt of Dr. Duggan and [facility]. Pt presented to the ER with chest pain. Troponin was negative. Pt was found to have stable angina. She was placed on long acting Isosorbide by Dr. Jackson and felt she met criteria for discharge. Source: patient, family, RN/MD, old records Date Seen 09/13/21 Time Seen by a Provider: 10:30 Attending Physician Kirsten Cullen DO [facility] Referring Physician Date of Admission September 12, 2021 at 22:22 Home Medications & Allergies Home Medications Reviewed patient Home Medication Reconciliation performed by pharmacy medication reconciliations account technician and/or nursing. Patients Allergies have been reviewed. Allergies Allergies Coded Allergies methylprednisolone (Verified Allergy, Mild, 11/05/18) Penicillins (Unverified Allergy, Unknown, 11/05/18) atorvastatin (Verified Allergy, Unknown, 11/05/18) isosorbide (Verified Allergy, Unknown, 11/05/18) ketorolac (Verified Allergy, Unknown, ITCHING, 11/05/18) promethazine (Unverified Allergy, Unknown, hallucinations, 11/05/18) venom-honey bee (Unverified Allergy, Unknown, 11/05/18) Uncoded Allergies TAPE ( Allergy, Unknown, 08/16/13) Past Mmdeaep-Yxeyvw-Mrklop Hx Patient Social History Marrital Status: Employed/Student: unemployed Tobacco Use?: No Smoking Status: Former Smoker Use of E-Cig and/or Vaping dev: No Substance use?: No Alcohol Use?: No Pt feels they are or have been: No Immunizations Up To Date Date of Influenza Vaccine: May 06, 2012 First/Initial COVID19 Vaccinat: n/a Second COVID19 Vaccination Lm: n/a Tetanus Booster (TDap): More Than 5 Years Hepatitis B: Yes PED Vaccines UTD: Yes Date of Pneumonia Vaccine: Jan 09, 2017 Seasonal Allergies Seasonal Allergies: No Current Status status: No status: No Advance Directives: No Communicates: Verbally Primary Language: Malaysian Preferred Spoken Language: Malaysian Is interpretation needed?: No Sensory deficits: Vision impairment Implanted or Applied Medical D: Orthopedic hardware, Stents Past Medical History Surgeries: Appendectomy, Cardiac, Coronary Stent, Gallbladder, Hysterectomy, Orthopedic, Thyroidectomy Asthma, Pulmonary Embolism, Sleep Apnea Currently Using CPAP: No Currently Using BIPAP: No Angina, Coronary Artery Disease, Deep Vein Thrombosis, High Cholesterol, Hypertension, Peripheral Vascular, Syncope Headaches /Migraines, Neuropathy 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 Sexually Transmitted Disease: No HIV/AIDS: No Bladder Infection, Kidney Stones Gastroesophageal Reflux, Chronic Constipation, Gall Bladder Disease Degenerate Disk Disease, Arthritis, Back Injury, Chronic Back Pain, Spasms Hypothyroidsim Loss of Vision: Bilateral Hearing Impairment: Denies Colon Depression Blood Disorders: Yes (BLOOD CLOTS-DVT/P.E.'S) Adverse Reaction/Blood Tranf: No Family Medical History Arthritis G8 SISTER Cardiovascular disease 03 FATHER Colon cancer 03 MOTHER Completed stroke 03 MOTHER Hypertension 03 MOTHER G8 BROTHER Myocardial infarction 03 MOTHER Thyroid disease G8 SISTER Review of Systems Constitutional: see HPI, malaise, weakness EENTM: no symptoms reported Respiratory: no symptoms reported Cardiovascular: chest pain Gastrointestinal: no symptoms reported Genitourinary: no symptoms reported Musculoskeletal: no symptoms reported Skin: no symptoms reported Psychiatric/Neurological: No Symptoms Reported All Other Systems Reviewed Negative Unless Noted: Yes Physical Exam Physical Exam Vital Signs Vital Signs - First Documented 09/12/21 09/13/21 19:26 01:00 Temp 35.6 Pulse 78 Resp 20 B/P (MAP) 137/62 (87) Pulse Ox 96 O2 Delivery Room Air O2 Flow Rate 2.00 FiO2 21 Capillary Refill : Less Than 3 Seconds Height, Weight, BMI Height: 5'2.00" Weight: 297lbs. 8.0oz. 134.376914kg; 54.62 BMI Method:Stated General Appearance: No Apparent Distress, Anxious, Chronically ill, Obese HEENT: PERRL/EOMI, Pharynx Normal, Moist Mucous Membranes Neck: Full Range of Motion, Normal Inspection Respiratory: Chest Non Tender, Lungs Clear, Normal Breath Sounds, No Accessory Muscle Use, No Respiratory Distress Cardiovascular: Regular Rate, Rhythm, No Edema, Normal Peripheral Pulses Gastrointestinal: Normal Bowel Sounds, Non Tender, Soft Extremity: Normal Capillary Refill, Normal Inspection, No Pedal Edema Neurologic/Psychiatric: Alert, Oriented x3 Skin: Normal Color, Warm/Dry Results Results/Procedures Labs Laboratory Tests 09/12/21 19:28 09/13/21 04:17 Patient resulted labs reviewed. Short Stay Diagnosis Discharge Diagnosis-Short Stay Admission Diagnosis Assessment: Angina CAD PE Anticoagulation Final Discharge Diagnosis Assessment: Angina CAD PE Anticoagulation Conclusion Plan Discharge home Diagnosis/Problems Diagnosis/Problems (1) Unstable angina Status: Acute (2) Atypical chest pain Status: Acute Clinical Quality Measures AMI/AHF: ASA po Prior to arrival: KIRSTEN Acevedo DO September 13, 2021 07:05
[2021-09-13] MEDS ORDERED: ASPIRIN E.C. 81 MG (ECOTRIN) TAB PO SCH (09:00)
[2021-09-13] MEDS ORDERED: SENNOSIDES 8.6 MG (SENOKOT) TAB PO SCH (09:00)
[2021-09-13] MEDS ORDERED: DOCUSATE SODIUM 100 MG (COLACE) CAP PO SCH (09:00)
[2021-09-13] MEDS ORDERED: ISOSORBIDE DINITRATE 20 MG (ISORDIL) TAB PO SCH (09:30)
--- NOTE | 2021-09-13 09:30 | Consultation-Cardiology ---
HPI-Cardiology Cardiology Consultation: Date of Consultation 09/13/21 Date of Admission 09/12/21 Attending Physician Kirsten Cullen DO Admitting Physician [place] Consulting Physician NATALIYA ROBERSON JR, MD HPI: Time Seen by a Provider: 09:24 Chief Complaint: Reason for consultation: Chest pain. I had the pleasure of seeing Anca in the intensive care unit at [facility] in [place], [place] this morning. She has a known history of coronary artery disease with 3 previous coronary stents. She normally follows with a executive director of marketing at [facility] in [place], [place]. She has a longstanding history of angina. She will intermittently use a nitroglycerin patch which will keep her angina under control. She only wears this intermittently because she has an allergy to adhesive's and frequently develops a rash from the nitroglycerin patch. However, over the past 3 days, she has been having more frequent and prolonged episodes of chest discomfort. She feels like she has a rubber band around her chest. Sometimes this will radiate to her left arm. At times this will cause her to have palpitations. She has chronic dyspnea on exertion which has been unchanged. She has been trying to use her nitroglycerin patch but over the past few days, she has still been getting chest discomfort. [facility] and again developed chest discomfort while riding a scooter around the store. She put on a nitroglycerin patch but still had chest discomfort so she had her boyfriend drive her to the emergency room. In the emergency room, she was given intravenous morphine and her chest discomfort resolved. She was then treated with nitroglycerin paste. Overnight her chest discomfort had essentially resolved. This morning she has some mild intermittent chest discomfort but not like what she has been having for the past few days. She denies paroxysmal nocturnal dyspnea, orthopnea, syncope, or ankle edema. She states she has been compliant with all her other medications. She does state that she needs to crush her medication because she has trouble swallowing pills. She has been compliant with her CPAP. She also tells me that she has been taking the combination of aspirin, clopidogrel and warfarin for a number of years. No one has ever told her to stop any of these medications. She takes the warfarin due to to previous pulmonary emboli. There is a family history of factor V Leiden but she has tested negative for this genetic abnormality. Because of the chest pain, a cardiology consultation was requested. Certain portions of this document may have been dictated utilizing voice recognition technology. Inherent to this technology, typographical and grammatical errors may exist. As much as I am diligent to identify and correct these mistakes, some errors may remain in the document. Review of Systems-Cardiology Review of Systems Other comments Review of 10 organ systems is as per the history of present illness, otherwise negative. All Other Systems Reviewed Negative Unless Noted: Yes QZX-Nuroii-Jhdxam Hx Patient Social History Smoking Status: Never a Smoker 2nd Hand Smoke Exposure: Yes Have you traveled recently?: No Alcohol Use?: No Pt feels they are or have been: No Immunizations Up To Date Tetanus Booster (TDap): Less than 5yrs Date of Pneumonia Vaccine: Jan 09, 2017 Date of Influenza Vaccine: May 06, 2012 Past Medical History PMH As described under Assessment. Family Medical History Family History: Arthritis G8 SISTER Cardiovascular disease 03 FATHER Colon cancer 03 MOTHER Completed stroke 03 MOTHER Hypertension 03 MOTHER G8 BROTHER Myocardial infarction 03 MOTHER Thyroid disease G8 SISTER Allergies and Home Medications Allergies Coded Allergies: methylprednisolone (Verified Allergy, Mild, 11/05/18) Penicillins (Unverified Allergy, Unknown, 11/05/18) atorvastatin (Verified Allergy, Unknown, 11/05/18) isosorbide (Verified Allergy, Unknown, 11/05/18) ketorolac (Verified Allergy, Unknown, ITCHING, 11/05/18) promethazine (Unverified Allergy, Unknown, hallucinations, 11/05/18) venom-honey bee (Unverified Allergy, Unknown, 11/05/18) Uncoded Allergies: TAPE (Allergy, Unknown, 08/16/13) Patient Home Medication List Home Medication List Reviewed: Yes Acetaminophen (Acetaminophen) 500 Mg Tablet, 500-1,000 MG PO Q8H PRN for PAIN- MILD (1-4), (Reported) Entered as Reported by: YARA JUAREZ on 09/04/15 1558 Albuterol Sulfate (Ventolin Hfa) 18 Gm Hfa.aer.ad, 1 PUFF INH Q4H PRN for SHORTNESS OF BREATH, (Reported) Entered as Reported by: KSENIA PIÑA on 08/19/17 0947 Aspirin (Aspirin EC) 81 Mg Tablet.dr, 81 MG PO HS, (Reported) Entered as Reported by: RAAD LANDRY on 01/30/20 1138 Carboxymethylcellulos/Glycerin (Refresh Optive Eye Drops) 15 Ml Drops, 2 DROPS OU PRN PRN for DRY EYES, (Reported) Entered as Reported by: RAAD LANDRY on 01/30/20 1138 Clopidogrel Bisulfate (Plavix) 75 Mg Tablet, 75 MG PO HS, (Reported) Entered as Reported by: RAAD LANDRY on 01/30/20 1138 Diltiazem HCl (Cartia Xt) 120 Mg Cap.er.24h, 120 MG PO HS, (Reported) Entered as Reported by: RAAD LANDRY on 01/30/20 1138 Hydrocodone/Acetaminophen (Hydrocodone-Acetamin 5-325 mg) 1 Each Tablet, 1 TAB PO Q4H PRN for PAIN-MODERATE (5-7) Prescribed by: SHALOM RAMÍREZ on 02/08/21 1924 Levothyroxine Sodium (Levothyroxine Sodium) 150 Mcg Tablet, 150 MCG PO HS, (Reported) Entered as Reported by: YARA JUAREZ on 09/04/15 1524 Meclizine HCl (Meclizine HCl) 25 Mg Tablet, 25 MG PO TID Prescribed by: SHALOM RAMÍREZ on 12/05/20 1325 Rosuvastatin Calcium (Rosuvastatin Calcium) 20 Mg Tablet, 20 MG PO HS, (Reported) Entered as Reported by: BLAIRE MONTGOMERY on 06/11/20 1649 Warfarin Sodium (Warfarin Sodium) 5 Mg Tablet, 5 MG PO MARIE,TU,WE,CECILLE,FR,SAT, (Reported) Entered as Reported by: YARA JUAREZ on 09/04/15 1542 Warfarin Sodium (Warfarin Sodium) 5 Mg Tablet, 7.5 MG PO MON, (Reported) Entered as Reported by: RAAD LANDRY on 01/30/20 1138 Exam Vital Signs Vital Signs Date Time Temp Pulse Resp B/P (MAP) Pulse Ox O2 Delivery O2 Flow Rate FiO2 09/13/21 09:00 58 16 108/53 (71) 96 Nasal Cannula 2.00 09/13/21 08:00 35.8 09/13/21 01:00 21 Physical Exam General: Alert. No acute distress. Well nourished and appears stated age. She is morbidly obese. Eye: Extraocular movements are intact. Conjunctivae are clear. There are no xanthelasma. HENT: Normocephalic. Atraumatic. Carotid pulsations 2/2 without bruits. Neck: Jugular venous pressure does not appear elevated. No thyromegaly appreciated. Respiratory: Lungs are clear to auscultation. Respirations are non-labored. Breath sounds are equal. Symmetrical chest wall expansion. Cardiovascular: Normal rate. Regular rhythm. No murmur. No gallop. Point of maximal impulse is not appear displaced. Good pulses equal in all extremities. No edema. Gastrointestinal: Soft. Normal bowel sounds. Skin: Skin turgor is normal. There is no pallor. Musculoskeletal: No kyphosis or scoliosis appreciated. Neurologic: Alert and oriented to person, place, time. Cranial nerves 3-12 appear grossly intact. The patient has good motor tone strength in the upper and lower extremities bilaterally. Psychiatric: Cooperative. Appropriate mood & affect. Labs Laboratory Tests Test 09/12/21 19:28 09/12/21 20:12 09/13/21 00:55 09/13/21 04:13 Range/Units White Blood Count 9.1 4.3-11.0 10^3/uL Red Blood Count 4.33 3.80-5.11 10^6/uL Hemoglobin 12.7 11.5-16.0 g/dL Hematocrit 40 35-52 % Mean Corpuscular Volume 93 80-99 fL Mean Corpuscular Hemoglobin 29 25-34 pg Mean Corpuscular Hemoglobin Concent 31 L 32-36 g/dL Red Cell Distribution Width 15.2 H 10.0-14.5 % Platelet Count 231 130-400 10^3/uL Mean Platelet Volume 10.9 9.0-12.2 fL Immature Granulocyte % (Auto) 1 % Neutrophils (%) (Auto) 69 42-75 % Lymphocytes (%) (Auto) 22 12-44 % Monocytes (%) (Auto) 7 0-12 % Eosinophils (%) (Auto) 1 0-10 % Basophils (%) (Auto) 0 0-10 % Neutrophils # (Auto) 6.3 1.8-7.8 10^3/uL Lymphocytes # (Auto) 2.0 1.0-4.0 10^3/uL Monocytes # (Auto) 0.6 0.0-1.0 10^3/uL Eosinophils # (Auto) 0.1 0.0-0.3 10^3/uL Basophils # (Auto) 0.0 0.0-0.1 10^3/uL Immature Granulocyte # (Auto) 0.1 0.0-0.1 10^3/uL Prothrombin Time 17.9 H 12.2-14.7 SEC INR Comment 1.4 0.8-1.4 Activated Partial Thromboplast Time 33 24-35 SEC D-Dimer 0.13 0.00-0.49 UG/ML Sodium Level 140 135-145 MMOL/L Potassium Level 3.7 3.6-5.0 MMOL/L Chloride Level 103 98-107 MMOL/L Carbon Dioxide Level 24 21-32 MMOL/L Anion Gap 13 5-14 MMOL/L Blood Urea Nitrogen 14 7-18 MG/DL Creatinine 0.85 0.60-1.30 MG/DL Estimat Glomerular Filtration Rate 77 BUN/Creatinine Ratio 16 Glucose Level 202 H 70-105 MG/DL Calcium Level 8.9 8.5-10.1 MG/DL Corrected Calcium 8.8 8.5-10.1 MG/DL Magnesium Level 2.3 1.6-2.4 MG/DL Total Bilirubin 0.3 0.1-1.0 MG/DL Aspartate Amino Transf (AST/SGOT) 16 5-34 U/L Alanine Aminotransferase (ALT/SGPT) 18 0-55 U/L Alkaline Phosphatase 91 40-136 U/L Myoglobin 34.4 10.0-92.0 NG/ML Troponin I < 0.028 < 0.028 <0.028 NG/ML B-Type Natriuretic Peptide < 10.0 <100.0 PG/ML Total Protein 7.8 6.4-8.2 GM/DL Albumin 4.1 3.2-4.5 GM/DL Lipase 50 8-78 U/L Urine Color YELLOW Urine Clarity CLEAR Urine pH 5.5 5-9 Urine Specific [place] >=1.030 1.016-1.022 Urine Protein NEGATIVE NEGATIVE Urine Glucose (UA) NEGATIVE NEGATIVE Urine Ketones NEGATIVE NEGATIVE Urine Nitrite NEGATIVE NEGATIVE Urine Bilirubin NEGATIVE NEGATIVE Urine Urobilinogen 0.2 < = 1.0 MG/DL Urine Leukocyte Esterase NEGATIVE NEGATIVE Urine RBC (Auto) NEGATIVE NEGATIVE Urine RBC NONE /HPF Urine WBC 0-2 /HPF Urine Squamous Epithelial Cells 2-5 /HPF Urine Crystals NONE /LPF Urine Bacteria MODERATE H /HPF Urine Casts NONE /LPF Urine Mucus SMALL H /LPF Urine Culture Indicated YES Test 09/13/21 04:17 Range/Units White Blood Count 9.3 4.3-11.0 10^3/uL Red Blood Count 3.80 3.80-5.11 10^6/uL Hemoglobin 11.1 L 11.5-16.0 g/dL Hematocrit 36 35-52 % Mean Corpuscular Volume 95 80-99 fL Mean Corpuscular Hemoglobin 29 25-34 pg Mean Corpuscular Hemoglobin Concent 31 L 32-36 g/dL Red Cell Distribution Width 15.2 H 10.0-14.5 % Platelet Count 190 130-400 10^3/uL Mean Platelet Volume 11.2 9.0-12.2 fL Immature Granulocyte % (Auto) 0 % Neutrophils (%) (Auto) 58 42-75 % Lymphocytes (%) (Auto) 33 12-44 % Monocytes (%) (Auto) 7 0-12 % Eosinophils (%) (Auto) 1 0-10 % Basophils (%) (Auto) 0 0-10 % Neutrophils # (Auto) 5.4 1.8-7.8 10^3/uL Lymphocytes # (Auto) 3.1 1.0-4.0 10^3/uL Monocytes # (Auto) 0.6 0.0-1.0 10^3/uL Eosinophils # (Auto) 0.1 0.0-0.3 10^3/uL Basophils # (Auto) 0.0 0.0-0.1 10^3/uL Immature Granulocyte # (Auto) 0.0 0.0-0.1 10^3/uL Prothrombin Time 19.9 H 12.2-14.7 SEC INR Comment 1.6 H 0.8-1.4 Sodium Level 141 135-145 MMOL/L Potassium Level 4.0 3.6-5.0 MMOL/L Chloride Level 105 98-107 MMOL/L Carbon Dioxide Level 23 21-32 MMOL/L Anion Gap 13 5-14 MMOL/L Blood Urea Nitrogen 13 7-18 MG/DL Creatinine 0.79 0.60-1.30 MG/DL Estimat Glomerular Filtration Rate 84 BUN/Creatinine Ratio 16 Glucose Level 127 H 70-105 MG/DL Calcium Level 7.9 L 8.5-10.1 MG/DL Corrected Calcium 8.3 L 8.5-10.1 MG/DL Total Bilirubin 0.2 0.1-1.0 MG/DL Aspartate Amino Transf (AST/SGOT) 17 5-34 U/L Alanine Aminotransferase (ALT/SGPT) 16 0-55 U/L Alkaline Phosphatase 76 40-136 U/L Total Protein 6.6 6.4-8.2 GM/DL Albumin 3.5 3.2-4.5 GM/DL Triglycerides Level 207 H <150 MG/DL Cholesterol Level 214 H < 200 MG/DL LDL Cholesterol Direct 160 H 1-129 MG/DL VLDL Cholesterol 41 H 5-40 MG/DL HDL Cholesterol 33 L 40-60 MG/DL ECG Impression ECG Comment Sinus rhythm with low voltage in the precordial leads. No evidence of prior infarct or active ischemia. Diagnosis/Problems Diagnosis/Problems (1) Coronary artery disease with unstable angina pectoris Assessment & Plan: Her symptoms sound consistent with possible unstable angina. This is in the setting of known coronary artery disease with previous coronary stents. Fortunately, her troponin levels were negative and she has no ischemic changes on her electrocardiogram. She is feeling better this morning. She wears a nitroglycerin patch intermittently due to a rash she gets from the adhesive. I recommend we try her on isosorbide dinitrate twice daily. She has a reported allergy to this but cannot remember exactly what the side effect was that she had. She is willing to try this again. She cannot easily swallow pills and crushes all of her medications so that needs to be kept in mind when prescribing antianginal medication. Isosorbide mononitrate, ranolazine, and metoprolol succinate cannot be crushed. If she feels better by lunchtime, then she can be discharged home. I advised her to contact her regular executive director of marketing and schedule a follow-up appointment next week. If she has recurrent chest discomfort despite the long-acting nitrate, then we may need to consider further evaluation with a cardiac catheterization prior to discharge. (2) Primary hypertension Assessment & Plan: Resume diltiazem. (3) Mixed hyperlipidemia Assessment & Plan: Her LDL level is markedly elevated despite reportedly taking rosuvastatin. I recommend adding ezetimibe. (4) History of pulmonary embolism Assessment & Plan: She has been taking warfarin, aspirin and clopidogrel due to her previous pulmonary emboli in the setting of known coronary artery disease. Prolonged triple therapy can markedly increase the risk of hemorrhagic side effects. I recommend dual pathway inhibition with aspirin and warfarin. She would rather stop the clopidogrel as opposed to aspirin. (5) Morbid obesity Assessment & Plan: She needs to work on weight loss. She would be a good candidate for bariatric surgery. She can discuss this with her primary provider following discharge. NATALIYA ROBERSON JR, MD September 13, 2021 09:30
[2021-09-13] MEDS ORDERED: ENOXAPARIN INJECTION 30 MG/0.3 ML SYR SC SCH (12:00)
[2021-09-13] MEDS ORDERED: ROSU5TAB13 PO (12:20)
[2021-09-13] MEDS ORDERED: POVI15DR OU (12:20)
[2021-09-13] MEDS ORDERED: ISOS20TA6 PO (12:44)
[2021-09-13] MEDS ORDERED: EZET10TA49 PO (12:44)
[2021-09-13] MEDS ORDERED: eZETimibe 10 MG (ZETIA) TABLET PO SCH (21:00)
== END 2021-09-13 14:17 | disposition home or self-care (01) ==
LOC: EDUNIT# 19:17 → ER 19:18 → ICU 22:22
PROVIDERS: ADMIT Internal Medicine; ATTEND Internal Medicine
DX: I25.110 Atherosclerotic heart disease of native coronary artery with unstable angina pectoris (principal); I26.99 Other pulmonary embolism without acute cor pulmonale; Z79.01 Long term (current) use of anticoagulants; Z87.891 Personal history of nicotine dependence
CPT/HCPCS: 71045; 71275; 74177; 80053 ×2; 80061; 81000; 82947; 83036; 83690; 83735; 83874; 83880; 84484 ×2; 85025 ×2; 85379; 85610 ×2; 85730; 87088; 93005 ×2; 96372; 99284; G0378; 36415

== ENCOUNTER 2021-10-05 18:29 | Observation (INO) | payer MEDICARE, MEDICAID ==
[~2021-10-05] VITALS: Ht 157 cm; Wt 132.3 kg
[2021-10-05] VITALS (7 sets, daily range): BP systolic 96–127; BP diastolic 54–102
[~2021-10-05 18:29] MED LIST changes: +EZET10TA49 PO; +ISOS20TA6 PO; +POVI15DR OU
--- NOTE | 2021-10-05 18:43 | ED Chest Pain ---
General Stated Complaint: CHEST PAIN / SOA Source: patient, spouse Exam Limitations: no limitations History of Present Illness Date Seen by Provider: October 05, 2021 Time Seen by Provider: 18:31 Initial Comments Patient presents to the ER with chief complaint of chest pain, private conveyance from home. The pains in her left chest radiating down her left arm and up into her left neck. Started about half an hour prior to arrival. She put a nitroglycerin patch along but has not taken any aspirin yet. She does not take blood thinners, statins or anything for blood pressure but does have a history of hyperlipidemia. She does not have diabetes nor has she ever been a smoker but does have a history of COPD and uses a CPAP at night to sleep. No nausea vomiting cough fevers chills. She does have shortness of air at baseline but it is worse with the pain. The pain initially was 8 out of 10, sharp and after the nitro patch it is down to a 5 out of 10 and more tolerable. She says it doubled her over and she could not walk due to the pain. She has a history of [address] Duggan for cardiology and Nataliya Waite for primary care at [facility]. She is not having any ankle edema, orthopnea or nocturnal dyspnea. She is on aspirin, Plavix and warfarin for many years. She has a history of pulmonary emboli. She is negative for factor V Leiden. She does have hyperlipidemia. Approximately 2 to 3 weeks ago she was here for similar presentation and at that time they had added ezetimibe in addition to rosuvastatin and switching to aspirin and warfarin only. She has not been able to tolerate antianginal med icines in the past because she has to crush all her pills to swallow them and they are not crushable. Cardiology did also recommend she pursue bariatric surgery at that time. Allergies and Home Medications Allergies Coded Allergies: methylprednisolone (Verified Allergy, Mild, 11/05/18) Penicillins (Unverified Allergy, Unknown, 11/05/18) atorvastatin (Verified Allergy, Unknown, 11/05/18) isosorbide (Verified Allergy, Unknown, 11/05/18) ketorolac (Verified Allergy, Unknown, ITCHING, 11/05/18) promethazine (Unverified Allergy, Unknown, hallucinations, 11/05/18) venom-honey bee (Unverified Allergy, Unknown, 11/05/18) Uncoded Allergies: TAPE (Allergy, Unknown, 08/16/13) Patient Home Medication List Home Medication List Reviewed: Yes Acetaminophen (Acetaminophen) 500 Mg Tablet, 500-1,000 MG PO Q8H PRN for PAIN- MILD (1-4), (Reported) Entered as Reported by: YARA JUAREZ on 09/04/15 1558 Albuterol Sulfate (Ventolin Hfa) 18 Gm Hfa.aer.ad, 1 PUFF INH Q4H PRN for SHORTNESS OF BREATH, (Reported) Entered as Reported by: KSENIA PIÑA on 08/19/17 0947 Aspirin (Aspirin EC) 81 Mg Tablet.dr, 81 MG PO HS, (Reported) Entered as Reported by: RAAD LANDRY on 01/30/20 1138 Clopidogrel Bisulfate (Plavix) 75 Mg Tablet, 75 MG PO HS, (Reported) Entered as Reported by: RAAD LANDRY on 01/30/20 1138 Ezetimibe (Ezetimibe) 10 Mg Tablet, 10 MG PO HS Prescribed by: HUMA JARA on 09/13/21 1244 Isosorbide Dinitrate (Isosorbide Dinitrate) 20 Mg Tablet, 20 MG PO BID@,17 Prescribed by: HUMA JARA on 09/13/21 1244 Levothyroxine Sodium (Levothyroxine Sodium) 150 Mcg Tablet, 150 MCG PO HS, (Reported) Entered as Reported by: YARA JUAREZ on 09/04/15 1524 Povidone (Soothe Hydration) 1.25 % Drops, 1-2 DROPS OU UD PRN for DRY EYES, (Reported) Entered as Reported by: RAAD LANDRY on 09/13/21 1220 Rosuvastatin Calcium (Rosuvastatin Calcium) 5 Mg Tablet, 5 MG PO HS, (Reported) Entered as Reported by: RAAD LANDRY on 09/13/21 1220 Warfarin Sodium (Warfarin Sodium) 5 Mg Tablet, 5 MG PO MARIE,MO,WE,FR @HS, (Reported) Entered as Reported by: YARA JUAREZ on 09/04/15 1542 Warfarin Sodium (Warfarin Sodium) 5 Mg Tablet, 7.5 MG PO ,TH,SA @HS, (Reported) Entered as Reported by: RAAD LANDRY on 01/30/20 1138 Review of Systems Review of Systems Constitutional: No chills, No diaphoresis EENTM: No Blurred Vision, No Double Vision Respiratory: Denies Cough, Denies Shortness of Air Cardiovascular: See HPI, Chest Pain; Denies Edema, Denies Lightheadedness Gastrointestinal: Denies Abdominal Pain, Denies Constipated, Denies Diarrhea, Denies Nausea Genitourinary: Denies Burning, Denies Discharge Musculoskeletal: No back pain, No joint pain Skin: No pruritus, No rash Psychiatric/Neurological: Denies Headache, Denies Numbness All Other Systems Reviewed Negative Unless Noted: Yes Past Jovocdm-Obmntn-Udmykt Hx Patient Social History Tobacco Use?: No Use of E-Cig and/or Vaping dev: No Substance use?: No Immunizations Up To Date Tetanus Booster (TDap): Less than 5yrs PED Vaccines UTD: Yes First/Initial COVID19 Vaccinat: n/a Second COVID19 Vaccination Lm: n/a Third COVID19 Vaccination Date: n/a Seasonal Allergies Seasonal Allergies: No Past Medical History Surgery/Hospitalization HX: SURGERY HX API, GALLBLADDER, HYSTERECTOMY, CARDIAC STENTS Surgeries: Yes Appendectomy, Cardiac, Coronary Stent, Gallbladder, Hysterectomy, Orthopedic, Thyroidectomy Respiratory: Yes (HAS CPAP--DOES NOT USE ON REGULAR BASIS; P.E. X2) Asthma, Pulmonary Embolism, Sleep Apnea Currently Using CPAP: No Currently Using BIPAP: No Cardiac: Yes (P.E. 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 Sexually Transmitted Disease: No HIV/AIDS: No Genitourinary: Yes Bladder Infection, Kidney Stones Gastrointestinal: Yes (S/P GENI) Gastroesophageal Reflux, Chronic Constipation, Gall Bladder Disease Musculoskeletal: Yes Degenerate Disk Disease, Arthritis, Back Injury, Chronic Back Pain, Spasms Endocrine: Yes (MORBID OBESITY; THYROIDECTOMY) Hypothyroidsim HEENT: Yes Loss of Vision: Bilateral Hearing Impairment: Denies Cancer: No Colon Psychosocial: No Depression Integumentary: No Blood Disorders: Yes (BLOOD CLOTS-DVT/P.E.'S) Adverse Reaction/Blood Tranf: No Family Medical History Arthritis G8 SISTER Cardiovascular disease 03 FATHER Colon cancer 03 MOTHER Completed stroke 03 MOTHER Hypertension 03 MOTHER G8 BROTHER Myocardial infarction 03 MOTHER Thyroid disease G8 SISTER Physical Exam Vital Signs Vital Signs - First Documented 10/05/21 18:44 Temp 36.1 Pulse 74 Resp 20 B/P (MAP) 125/108 (114) O2 Delivery Room Air Capillary Refill : Height, Weight, BMI Height: 5'2.00" Weight: 297lbs. 8.0oz. 134.398742sd; 54.62 BMI Method:Stated General Appearance: Chronically ill, Mild Distress, Obese HEENT: PERRL/EOMI, Pharynx Normal, Moist Mucous Membranes Neck: Full Range of Motion, Normal Inspection Respiratory: Chest Non Tender, Lungs Clear, Normal Breath Sounds, No Accessory Muscle Use, No Respiratory Distress Cardiovascular: Regular Rate, Rhythm, No Edema, Normal Peripheral Pulses Gastrointestinal: Normal Bowel Sounds, Non Tender, Soft Extremity: Normal Capillary Refill, Normal Inspection, No Pedal Edema Neurologic/Psychiatric: Alert, Oriented x3 Progress/Results/Core Measures Results/Orders Lab Results Laboratory Tests Test 10/05/21 18:35 Range/Units White Blood Count 9.0 4.3-11.0 10^3/uL Red Blood Count 4.29 3.80-5.11 10^6/uL Hemoglobin 12.6 11.5-16.0 g/dL Hematocrit 40 35-52 % Mean Corpuscular Volume 93 80-99 fL Mean Corpuscular Hemoglobin 29 25-34 pg Mean Corpuscular Hemoglobin Concent 32 32-36 g/dL Red Cell Distribution Width 14.8 H 10.0-14.5 % Platelet Count 181 130-400 10^3/uL Mean Platelet Volume 10.7 9.0-12.2 fL Immature Granulocyte % (Auto) 0 % Neutrophils (%) (Auto) 61 42-75 % Lymphocytes (%) (Auto) 29 12-44 % Monocytes (%) (Auto) 9 0-12 % Eosinophils (%) (Auto) 1 0-10 % Basophils (%) (Auto) 0 0-10 % Neutrophils # (Auto) 5.5 1.8-7.8 10^3/uL Lymphocytes # (Auto) 2.6 1.0-4.0 10^3/uL Monocytes # (Auto) 0.8 0.0-1.0 10^3/uL Eosinophils # (Auto) 0.1 0.0-0.3 10^3/uL Basophils # (Auto) 0.0 0.0-0.1 10^3/uL Immature Granulocyte # (Auto) 0.0 0.0-0.1 10^3/uL Prothrombin Time 22.2 H 12.2-14.7 SEC INR Comment 1.9 H 0.8-1.4 Activated Partial Thromboplast Time 37 H 24-35 SEC Sodium Level 139 135-145 MMOL/L Potassium Level 4.1 3.6-5.0 MMOL/L Chloride Level 102 98-107 MMOL/L Carbon Dioxide Level 22 21-32 MMOL/L Anion Gap 15 H 5-14 MMOL/L Blood Urea Nitrogen 10 7-18 MG/DL Creatinine 0.83 0.60-1.30 MG/DL Estimat Glomerular Filtration Rate 79 BUN/Creatinine Ratio 12 Glucose Level 132 H 70-105 MG/DL Calcium Level 9.3 8.5-10.1 MG/DL Corrected Calcium 9.5 8.5-10.1 MG/DL Magnesium Level 2.0 1.6-2.4 MG/DL Total Bilirubin 0.3 0.1-1.0 MG/DL Aspartate Amino Transf (AST/SGOT) 18 5-34 U/L Alanine Aminotransferase (ALT/SGPT) 19 0-55 U/L Alkaline Phosphatase 97 40-136 U/L Myoglobin 26.6 10.0-92.0 NG/ML Troponin I < 0.028 <0.028 NG/ML B-Type Natriuretic Peptide 17.0 <100.0 PG/ML Total Protein 7.4 6.4-8.2 GM/DL Albumin 3.8 3.2-4.5 GM/DL Lipase 61 8-78 U/L My Orders Orders - VIPIN LEARY Continuous Ekg Monitoring (10/05/21 18:30) Ekg Tracing (10/05/21 18:30) Cbc With Automated Diff (10/05/21 18:37) Magnesium (10/05/21 18:37) Chest 1 View, Ap/Pa Only (10/05/21 18:37) Comprehensive Metabolic Panel (10/05/21 18:37) Myoglobin Serum (10/05/21 18:37) Protime With Inr (10/05/21 18:37) Partial Thromboplastin Time (10/05/21 18:37) O2 (10/05/21 18:37) Lipid Panel (10/06/21 06:00) Ed Iv/Invasive Line Start (10/05/21 18:37) Lipase (10/05/21 18:37) Bnp [place] (10/05/21 18:37) Troponin I [place] (10/05/21 18:37) Aspirin Chewable Tablet (Baby Aspirin Ch (10/05/21 18:45) Morphine Injection (Morphine Injection (10/05/21 20:00) Medications Given in ED Current Medications Medications Dose Ordered Sig/Marcio Route Start Time Stop Time Status Last Admin Dose Admin Aspirin 324 mg ONCE ONCE PO 10/05/21 18:45 10/05/21 18:46 DC 10/05/21 18:43 324 MG Vital Signs/I&O 10/05/21 18:44 Temp 36.1 Pulse 74 Resp 20 B/P (MAP) 125/108 (114) O2 Delivery Room Air Progress Progress Note : Time: 18:47 Progress Note We will give her 324 mg of aspirin to chew and swallow and she states at this time she does not want a thing else in addition to her nitroglycerin paste. Her blood pressure is acceptable on arrival at 125/100. We will get some labs and a chest x-ray. Suspect she is having an anginal attack on top of her history of coronary disease. Since he is to become more frequent will recommend her to cardiology for management in the hospital. Her initial EKG does not reveal STEMI. Initial ECG Impression Date: October 05, 2021 Initial ECG Impression Time: 18:35 Initial ECG Rate: 74 Initial ECG Rhythm: Normal Sinus Initial ECG Intervals: Normal Initial ECG Impression: Normal Initial ECG Comparisson: Unchanged Comment Normal sinus rhythm without clinically relevant ST elevation or depression. Diagnostic Imaging Diagonstic Imaging: Xray Plain Films/CT/US/NM/MRI: chest Comments [facility] [place] [place] NAME: OTONIEL DUNAWAY [facility] REC#: [id number] PT STATUS: REG ER : 1955 PHYSICIAN: VIPIN LEARY MD ADMIT DATE: 10/05/21/ER Signed Date of Exam:10/05/21 CHEST 1 VIEW, AP/PA ONLY CHEST 1 VIEW, AP/PA ONLY Indication: Chest pain. Comparison: 09/12/2021 Findings: No focal airspace disease in the visualized lungs. Please note that the posterior lower lobes are poorly evaluated by portable radiography. No pleural effusion or pneumothorax. Stable mild enlargement of cardiac silhouette. Mediastinal contours are normal. ACDF is again noted in the lower cervical spine. Impression: 1. No acute cardiopulmonary process by portable radiography. Dictated by: Dictated on workstation # [id number] Dict: 10/05/211907 Trans: 10/05/211908 [facility] [id number] Interpreted by: JUANY CANCHOLA MD Electronically signed by: JUANY CANCHOLA MD 10/05/211908 Reviewed: Reviewed by Me Departure Communication (Admissions) Time/Spoke to Admitting Phy: 20:02 Discussed the case with Dr. Jara and she agrees to observe the patient with cardiac consultation. She will put in queued orders. CPAP for sleep. Time/Spoke to Consulting Phy: 19:57 Discussed the case with Dr. Jackson, cardiology and he agrees to consult on the case. Impression Primary Impression: Coronary artery disease with unstable angina pectoris Qualified Codes: I25.110 - Atherosclerotic heart disease of [place] coronary artery with unstable angina pectoris Disposition: ADMITTED INPATIENT Condition: Stable Admissions Decision to Admit Reason: Admit from ER (General) Decision to Admit/Date: October 05, 2021 Time/Decision to Admit Time: 19:54 Departure-Patient Inst. Referrals: [facility] (PCP) Primary Care Physician NATALIYA WAITE (Family) Primary Care Physician VIPIN LEARY October 05, 2021 18:43
[2021-10-05] MEDS ORDERED: ASPIRIN 81 MG CHEW (CHILDREN'S ASA) PO ONE (18:45)
[2021-10-05 18:46] LABS: BASOPHILS % (AUTO) 0 % (0-10); EOSINOPHILS # (AUTO) 0.1 10^3/uL (0.0-0.3); EOSINOPHILS % (AUTO) 1 % (0-10); HEMATOCRIT 40 % (35-52); HEMOGLOBIN 12.6 g/dL (11.5-16.0); LYMPHOCYTES # (AUTO) 2.6 10^3/uL (1.0-4.0); LYMPHOCYTES % (AUTO) 29 % (12-44); MEAN CORPUSCULAR HEMOGLOBIN 29 pg (25-34); MEAN CORPUSCULAR HGB CONC 32 g/dL (32-36); MEAN CORPUSCULAR VOLUME 93 fL (80-99); MEAN PLATELET VOLUME 10.7 fL (9.0-12.2); MONOCYTES # (AUTO) 0.8 10^3/uL (0.0-1.0); MONOCYTES % (AUTO) 9 % (0-12); NEUTROPHILS # (AUTO) 5.5 10^3/uL (1.8-7.8); NEUTROPHILS % (AUTO) 61 % (42-75); PLATELET COUNT 181 10^3/uL (130-400)
[2021-10-05 19:05] LABS: INR 1.9 (0.8-1.4); PROTHROMBIN TIME PATIENT 22.2 SEC (12.2-14.7)
--- NOTE | 2021-10-05 19:10 | Diagnostic Imaging Report ---
CHEST 1 VIEW, AP/PA ONLY Indication: Chest pain. Comparison: 09/12/2021 Findings: No focal airspace disease in the visualized lungs. Please note that the posterior lower lobes are poorly evaluated by portable radiography. No pleural effusion or pneumothorax. Stable mild enlargement of cardiac silhouette. Mediastinal contours are normal. ACDF is again noted in the lower cervical spine. Impression: 1. No acute cardiopulmonary process by portable radiography. Dictated by: Dictated on workstation # [id number]
[2021-10-05 19:32] LABS: ALBUMIN 3.8 GM/DL (3.2-4.5); POTASSIUM 4.1 MMOL/L (3.6-5.0)
[2021-10-05 19:34] LABS: CALCIUM 9.3 MG/DL (8.5-10.1)
[2021-10-05 19:35] LABS: TOTAL PROTEIN 7.4 GM/DL (6.4-8.2)
[2021-10-05 19:37] LABS: BILIRUBIN,TOTAL 0.3 MG/DL (0.1-1.0)
[2021-10-05 19:38] LABS: CREATININE SERUM 0.83 MG/DL (0.60-1.30)
[2021-10-05] MEDS ORDERED: morphine INJ 10 MG/ML 1ML (SYR OR VIAL) IVP STA (20:00)
[2021-10-05] MEDS ORDERED: ONDANSETRON 4 MG/2 ML (SDV) Z0FRAN IVP ONE (20:30)
[2021-10-05] MEDS ORDERED: MILK OF MAGNESIA 400 MG/5 ML 30 ML UDC PO PRN (21:00)
[2021-10-05] MEDS ORDERED: BISACODYL 10 MG SUPP (DULCOLAX) PR PRN (21:00)
[2021-10-05] MEDS ORDERED: polyethylene glycoL POWDER 17 GM (MIRALAX) PACK PO PRN (21:00)
[2021-10-05] MEDS ORDERED: NALOXONE 0.4 MG/ML 1 ML (NARCAN) VIAL IV PRN (21:00)
[2021-10-05] MEDS ORDERED: diphenhydrAMINE 50 MG/ML INJ (BENADRYL) IVP PRN (21:00)
[2021-10-05] MEDS ORDERED: ALPRAZolam 0.25 MG (XANAX) TAB PO PRN (21:00)
[2021-10-05] MEDS ORDERED: CALCIUM CARBONATE 500 MG (TUMS) TAB.CHEW PO PRN (21:00)
[2021-10-05] MEDS ORDERED: ONDANSETRON 4 MG/2 ML (SDV) Z0FRAN IV PRN (21:00)
[2021-10-05] MEDS ORDERED: ANTACID SUSP 30 ML UDC (MYLANTA) PO PRN (21:00)
[2021-10-05] MEDS ORDERED: MELATONIN 3 MG TABLET PO PRN (21:00)
[2021-10-05] MEDS ORDERED: diphenhydrAMINE 25 MG TAB (BENADRYL) PO PRN (21:00)
[2021-10-05] MEDS ORDERED: morphine INJ 4 MG/ML 1 ML (VIAL/SYRINGE) IV PRN (21:00)
[2021-10-05] MEDS ORDERED: LACTULOSE SYRUP 10GM/15ML (ENULOSE) 30ML UDC PO PRN (21:00)
[2021-10-05] MEDS ORDERED: NITROGLYCERIN 0.4 MG SL TABS BTL 25'S SL PRN (21:00)
[2021-10-05] MEDS ORDERED: ONDANSETRON 4 MG (ZOFRAN) ORAL DISSOLVE TAB PO PRN (21:00)
[2021-10-05] MEDS ORDERED: ENOXAPARIN 150 MG/ML (LOVENOX) SYR SQ SCH (22:30)
[2021-10-05] MEDS: SENNOSIDES 8.6 MG (SENOKOT) TAB PO SCH (22:34)
[2021-10-05] MEDS: DOCUSATE SODIUM 100 MG (COLACE) CAP PO SCH (22:34)
[2021-10-06] VITALS (14 sets, daily range): BP systolic 93–135; BP diastolic 58–108
[2021-10-06] MEDS ORDERED: RT-ALBUTEROL SULF 2.5 MG/3 ML PRE-MIX VIAL INH PRN (00:15)
[2021-10-06] MEDS ORDERED: LEVOTHYROXINE 150 MCG (LEVOTHROID) TAB ONE (03:07)
[2021-10-06] MEDS: LEVOTHYROXINE 150 MCG (LEVOTHROID) TAB PO SCH (03:09)
[2021-10-06] MEDS: ACETAMINOPHEN 325 MG TABLET PO PRN ×2 (03:09→12:08)
[2021-10-06 05:53] LABS: BASOPHILS % (AUTO) 0 % (0-10); EOSINOPHILS # (AUTO) 0.1 10^3/uL (0.0-0.3); EOSINOPHILS % (AUTO) 1 % (0-10); HEMATOCRIT 39 % (35-52); HEMOGLOBIN 11.9 g/dL (11.5-16.0); LYMPHOCYTES # (AUTO) 2.6 10^3/uL (1.0-4.0); LYMPHOCYTES % (AUTO) 35 % (12-44); MEAN CORPUSCULAR HEMOGLOBIN 29 pg (25-34); MEAN CORPUSCULAR HGB CONC 31 g/dL (32-36); MEAN CORPUSCULAR VOLUME 95 fL (80-99); MEAN PLATELET VOLUME 11.1 fL (9.0-12.2); MONOCYTES # (AUTO) 0.5 10^3/uL (0.0-1.0); MONOCYTES % (AUTO) 7 % (0-12); NEUTROPHILS # (AUTO) 4.3 10^3/uL (1.8-7.8); NEUTROPHILS % (AUTO) 56 % (42-75); PLATELET COUNT 155 10^3/uL (130-400); WHITE BLOOD COUNT 7.6 10^3/uL (4.3-11.0)
[2021-10-06 06:04] LABS: CHLORIDE 101 MMOL/L (98-107); POTASSIUM 4.4 MMOL/L (3.6-5.0); SODIUM 139 MMOL/L (135-145)
[2021-10-06 06:05] LABS: ALBUMIN 3.5 GM/DL (3.2-4.5)
[2021-10-06 06:06] LABS: CALCIUM 9.3 MG/DL (8.5-10.1); TRIGLYCERIDES 243 MG/DL (<150); VLDL CHOLESTEROL 49 MG/DL (5-40)
[2021-10-06 06:07] LABS: GLUCOSE 108 MG/DL (70-105); TOTAL PROTEIN 6.7 GM/DL (6.4-8.2)
[2021-10-06 06:08] LABS: CARBON DIOXIDE 26 MMOL/L (21-32)
[2021-10-06 06:09] LABS: BILIRUBIN,TOTAL 0.3 MG/DL (0.1-1.0)
[2021-10-06 06:11] LABS: ALKALINE PHOSPHATASE 86 U/L (40-136); CHOLESTEROL 213 MG/DL (< 200); CREATININE SERUM 0.76 MG/DL (0.60-1.30); GFR ESTIMATED 88
[2021-10-06 06:12] LABS: BUN/CREATININE RATIO 13
[2021-10-06 06:13] LABS: HDL CHOLESTEROL 35 MG/DL (40-60)
[2021-10-06 06:14] LABS: ALANINE AMINOTRANSFERASE 19 U/L (0-55)
--- NOTE | 2021-10-06 07:04 | History & Physical-Hospitalist ---
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 Dr Jackson will increase her BB and decide cath tomorrow or not. Source: patient Exam Limitations: no limitations Date Seen 10/06/21 Time Seen by a Provider: 11:00 Attending Physician [place] PCP Admitting Physician: Kirsten Cullen DO Attending Physician: Kirsten Cullen DO Referring Physician Date of Admission October 05, 2021 at 20:08 Home Medications & Allergies Home Medications Reviewed patient Home Medication Reconciliation performed by pharmacy medication reconciliations weatherization field technician and/or nursing. Patients Allergies have been reviewed. Allergies Allergies Coded Allergies methylprednisolone (Verified Allergy, Mild, 11/05/18) Penicillins (Unverified Allergy, Unknown, 11/05/18) atorvastatin (Verified Allergy, Unknown, 11/05/18) isosorbide (Verified Allergy, Unknown, 11/05/18) ketorolac (Verified Allergy, Unknown, ITCHING, 11/05/18) promethazine (Unverified Allergy, Unknown, hallucinations, 11/05/18) venom-honey bee (Unverified Allergy, Unknown, 11/05/18) Uncoded Allergies TAPE ( Allergy, Unknown, 08/16/13) Past Sugjrpd-Izylvc-Kblicy Hx Patient Social History Marrital Status: Employed/Student: unemployed Tobacco Use?: No Use of E-Cig and/or Vaping dev: No Substance use?: No Alcohol Use?: No Pt feels they are or have been: No Immunizations Up To Date Date of Influenza Vaccine: May 06, 2012 First/Initial COVID19 Vaccinat: n/a Second COVID19 Vaccination Lm: n/a Tetanus Booster (TDap): More Than 5 Years Hepatitis B: Yes PED Vaccines UTD: Yes Date of Pneumonia Vaccine: Jan 09, 2017 Seasonal Allergies Seasonal Allergies: No Current Status Advance Directives: No Communicates: Verbally Primary Language: Kinyarwanda Preferred Spoken Language: Kinyarwanda Is interpretation needed?: No Past Medical History Surgeries: Appendectomy, Cardiac, Coronary Stent, Gallbladder, Hysterectomy, Orthopedic, Thyroidectomy Asthma, Pulmonary Embolism, Sleep Apnea Currently Using CPAP: No Currently Using BIPAP: No Angina, Coronary Artery Disease, Deep Vein Thrombosis, High Cholesterol, Hypertension, Peripheral Vascular, Syncope Headaches /Migraines, 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 Transmitted Disease: No HIV/AIDS: No Bladder Infection, Kidney Stones Gastroesophageal Reflux, Chronic Constipation, Gall Bladder Disease Degenerate Disk Disease, Arthritis, Back Injury, Chronic Back Pain, Spasms Hypothyroidsim Loss of Vision: Bilateral Hearing Impairment: Denies Colon Depression Blood Disorders: Yes (BLOOD CLOTS-DVT/P.E.'S) Adverse Reaction/Blood Tranf: No Family Medical History Arthritis G8 SISTER Cardiovascular disease 03 FATHER Colon cancer 03 MOTHER Completed stroke 03 MOTHER Hypertension 03 MOTHER G8 BROTHER Myocardial infarction 03 MOTHER Thyroid disease G8 SISTER Review of Systems Constitutional: see HPI, malaise, weakness EENTM: no symptoms reported Respiratory: no symptoms reported Cardiovascular: chest pain Gastrointestinal: no symptoms reported Genitourinary: no symptoms reported Musculoskeletal: no symptoms reported Skin: no symptoms reported Psychiatric/Neurological: No Symptoms Reported All Other Systems Reviewed Negative Unless Noted: Yes Physical Exam Physical Exam Vital Signs Vital Signs - First Documented 10/05/21 10/05/21 10/05/21 10/06/21 18:44 20:28 23:29 00:04 Temp 36.1 Pulse 74 Resp 20 B/P (MAP) 125/108 (114) Pulse Ox 95 O2 Delivery Room Air O2 Flow Rate 2.00 FiO2 21 Capillary Refill : Less Than 3 Seconds Height, Weight, BMI Height: 5'2.00" Weight: 297lbs. 8.0oz. 134.692389ec; 53.55 BMI Method:Stated General Appearance: No Apparent Distress, Chronically ill, Obese Eyes: Right Eye Normal Inspection, Right Eye PERRL HEENT: PERRL/EOMI, Normal ENT Inspection, Pharynx Normal, Moist Mucous Membranes Neck: Full Range of Motion, Normal Inspection, Non Tender Respiratory: Chest Non Tender, Lungs Clear, Normal Breath Sounds, No Accessory Muscle Use, No Respiratory Distress Cardiovascular: Regular Rate, Rhythm, No Edema, No Gallop, No JVD, No Murmur, Normal Peripheral Pulses Gastrointestinal: Normal Bowel Sounds, No Organomegaly, No Pulsatile Mass, Non Tender, Soft Back: Normal Inspection, No CVA Tenderness, No Vertebral Tenderness Extremity: Normal Capillary Refill, Normal Inspection, Normal Range of Motion, Non Tender, No Calf Tenderness, No Pedal Edema Neurologic/Psychiatric: Alert, Oriented x3, No Motor/Sensory Deficits, Normal Mood/Affect Skin: Normal Color, Warm/Dry Lymphatic: No Adenopathy Results Results/Procedures Labs Laboratory Tests 10/05/21 18:35 10/06/21 05:42 Patient resulted labs reviewed. Assessment/Plan Admission Diagnosis Assessment: Unstable angina CAD previous stents Morbid obesity HTN HLP Chronic DUBOIS Plan: Supportive care Monitor CP Admission Status: Observation Diagnosis/Problems Diagnosis/Problems (1) Unstable angina Status: Acute (2) Atypical chest pain Status: Acute Clinical Quality Measures AMI/AHF: ASA po Prior to arrival: Yes (324 asprin given in ed) KIRSTEN CULLEN DO October 06, 2021 07:04
--- NOTE | 2021-10-06 08:38 | Tele-ICU Progress Note ---
Progress Note 65 y/o female with a hx of CAD and cardiac stents presents with typical ischemic chest pain. Troponins and EKG were normal Given NTG patch and ASA in ED Awaiting cardiology Focused Exam Height, Weight, BMI Height: 5'2.00" Weight: 297lbs. 8.0oz. 134.377893bv; 53.55 BMI Method:Stated Laboratory Tests 10/05/21 18:35 10/06/21 05:42 Results Results/Procedures Lab Laboratory Tests 10/05/21 18:35 10/06/21 05:42 Results Labs Labs Laboratory Tests 10/05/21 18:35: White Blood Count 9.0, Red Blood Count 4.29, Hemoglobin 12.6, Hematocrit 40, Mean Corpuscular Volume 93, Mean Corpuscular Hemoglobin 29, Mean Corpuscular Hemoglobin Concent 32, Red Cell Distribution Width 14.8H, Platelet Count 181, Mean Platelet Volume 10.7, Immature Granulocyte % (Auto) 0, Neutrophils (%) (Auto) 61, Lymphocytes (%) (Auto) 29, Monocytes (%) (Auto) 9, Eosinophils (%) (Auto) 1, Basophils (%) (Auto) 0, Neutrophils # (Auto) 5.5, Lymphocytes # (Auto) 2.6, Monocytes # (Auto) 0.8, Eosinophils # (Auto) 0.1, Basophils # (Auto) 0.0, Immature Granulocyte # (Auto) 0.0, Prothrombin Time 22.2H, INR Comment 1.9H, Activated Partial Thromboplast Time 37H, Sodium Level 139, Potassium Level 4.1, Chloride Level 102, Carbon Dioxide Level 22, Anion Gap 15H, Blood Urea Nitrogen 10, Creatinine 0.83, Estimat Glomerular Filtration Rate 79, BUN/Creatinine Ratio 12, Glucose Level 132H, Calcium Level 9.3, Corrected Calcium 9.5, Magnesium Leve l 2.0, Total Bilirubin 0.3, Aspartate Amino Transf (AST/SGOT) 18, Alanine Aminotransferase (ALT/SGPT) 19, Alkaline Phosphatase 97, Myoglobin 26.6, Troponin I < 0.028, B-Type Natriuretic Peptide 17.0, Total Protein 7.4, Albumin 3.8, Lipase 61 10/06/21 00:49: Troponin I < 0.028 10/06/21 05:42: White Blood Count 7.6, Red Blood Count 4.05, Hemoglobin 11.9, Hematocrit 39, Mean Corpuscular Volume 95, Mean Corpuscular Hemoglobin 29, Mean Corpuscular H emoglobin Concent 31L, Red Cell Distribution Width 14.8H, Platelet Count 155, Mean Platelet Volume 11.1, Immature Granulocyte % (Auto) 0, Neutrophils (%) (Auto) 56, Lymphocytes (%) (Auto) 35, Monocytes (%) (Auto) 7, Eosinophils (%) (Auto) 1, Basophils (%) (Auto) 0, Neutrophils # (Auto) 4.3, Lymphocytes # (Auto) 2.6, Monocytes # (Auto) 0.5, Eosinophils # (Auto) 0.1, Basophils # (Auto) 0.0, Immature Granulocyte # (Auto) 0.0, Sodium Level 139, Potassium Level 4.4, Chl oride Level 101, Carbon Dioxide Level 26, Anion Gap 12, Blood Urea Nitrogen 10, Creatinine 0.76, Estimat Glomerular Filtration Rate 88, BUN/Creatinine Ratio 13, Glucose Level 108H, Calcium Level 9.3, Corrected Calcium 9.7, Total Bilirubin 0.3, Aspartate Amino Transf (AST/SGOT) 21, Alanine Aminotransferase (ALT/SGPT) 19, Alkaline Phosphatase 86, Troponin I < 0.028, Total Protein 6.7, Albumin 3.5, Triglycerides Level 243H, Cholesterol Level 213H, LDL Cholesterol Direct 148H, VLDL Cholesterol 49H, HDL Cholesterol 35L TRUPTI THAPA MD October 06, 2021 08:37
[2021-10-06] MEDS ORDERED: CLOPIDOGREL 75 MG (PLAVIX) TABLET PO SCH (09:00)
[2021-10-06] MEDS: ASPIRIN E.C. 81 MG (ECOTRIN) TAB PO SCH (09:12)
[2021-10-06] MEDS: DOCUSATE SODIUM 100 MG (COLACE) CAP PO SCH ×2 (09:13→20:14)
[2021-10-06] MEDS: SENNOSIDES 8.6 MG (SENOKOT) TAB PO SCH ×2 (09:13→20:14)
--- NOTE | 2021-10-06 09:39 | Consultation-Cardiology ---
HPI-Cardiology Cardiology Consultation: Date of Consultation 10/06/21 Date of Admission 10/05/21 Attending Physician [facility] Admitting Physician Admitting Physician: Huma Jara DO Attending Physician: Huma Jara DO Consulting Physician NATALIYA ROBERSON JR, MD HPI: Time Seen by a Provider: 09:34 Chief Complaint: REASON FOR CONSULTATION: Chest pain. I had the pleasure of seeing Minnie in the intensive care unit at [facility] in [place], [place] today. She normally follows with a rent control office manager at [facility] in [place] [address]. She has a known history of coronary artery disease with 3 previous coronary stents, hypertension, hyperlipidemia, asthma, obstructive sleep apnea, previous pulmonary embolism on chronic warfarin, and morbid obesity. She also has a lifelong history of difficulty swallowing pills. She also develops a rash due to adhesives. She has been having ongoing intermittent episodes of anginal type chest discomfort for at least the past month. She will intermittently use a nitroglycerin patch but within a few hours, she will start developing blistering on her skin at the site of her patch. She has also taken some sublingual nitroglycerin tablets intermittently as needed. She recently saw her regular rent control office manager at the outside facility and he just recommended she continue the present medication. However, when I reviewed her outside medication list, it appears as though there may have been some changes to her antianginal medication since the last time she was in our hospital earlier this month. Unfortunately, she does not have an up-to-date medication list with her. Yesterday she was at a friend's house and again developed substernal chest tightness. This made her feel somewhat short of breath. She did not have any nitroglycerin tablets or patches with her. When the chest discomfort would not resolve, she came to the hospital for further evaluation. She was given nitroglycerin paste and morphine and her chest discomfort resolved. Overnight, she had a couple short episodes of chest discomfort. This morning she is feeling better. She denies paroxysmal nocturnal dyspnea, orthopnea, palpitations, syncope, or lower extremity edema. She does get some occasional lightheaded spells. Certain portions of this document may have been dictated utilizing voice recognition technology. Inherent to this technology, typographical and grammatical errors may exist. As much as I am diligent to identify and correct these mistakes, some errors may remain in the document. Review of Systems-Cardiology Review of Systems Other comments Review of 10 organ systems is as per the history of present illness, otherwise negative. All Other Systems Reviewed Negative Unless Noted: Yes [id number] Hx Patient Social History 2nd Hand Smoke Exposure: Yes Have you traveled recently?: No Alcohol Use?: No Pt feels they are or have been: No Immunizations Up To Date Tetanus Booster (TDap): Less than 5yrs Date of Pneumonia Vaccine: Jan 09, 2017 Date of Influenza Vaccine: May 06, 2012 Past Medical History PMH As described under Assessment. Family Medical History Family History: Arthritis G8 SISTER Cardiovascular disease 03 FATHER Colon cancer 03 MOTHER Completed stroke 03 MOTHER Hypertension 03 MOTHER G8 BROTHER Myocardial infarction 03 MOTHER Thyroid disease G8 SISTER Allergies and Home Medications Allergies Coded Allergies: methylprednisolone (Verified Allergy, Mild, 11/05/18) Penicillins (Unverified Allergy, Unknown, 11/05/18) atorvastatin (Verified Allergy, Unknown, 11/05/18) isosorbide (Verified Allergy, Unknown, 11/05/18) ketorolac (Verified Allergy, Unknown, ITCHING, 11/05/18) promethazine (Unverified Allergy, Unknown, hallucinations, 11/05/18) venom-honey bee (Unverified Allergy, Unknown, 11/05/18) Uncoded Allergies: TAPE (Allergy, Unknown, 08/16/13) Patient Home Medication List Home Medication List Reviewed: Yes Acetaminophen (Acetaminophen) 500 Mg Tablet, 500-1,000 MG PO Q8H PRN for PAIN- MILD (1-4), (Reported) Entered as Reported by: YARA JUAREZ on 09/04/15 1558 Albuterol Sulfate (Ventolin Hfa) 18 Gm Hfa.aer.ad, 1 PUFF INH Q4H PRN for SHORTNESS OF BREATH, (Reported) Entered as Reported by: KSENIA PIÑA on 08/19/17 0947 Clopidogrel Bisulfate (Plavix) 75 Mg Tablet, 75 MG PO HS, (Reported) Entered as Reported by: RAAD LANDRY on 01/30/20 1138 Last Action: Reviewed Ezetimibe (Ezetimibe) 10 Mg Tablet, 10 MG PO HS Prescribed by: HUMA JARA on 09/13/21 1244 Last Action: Reviewed Isosorbide Dinitrate (Isosorbide Dinitrate) 20 Mg Tablet, 20 MG PO BID@07,17 Prescribed by: HUMA JARA on 09/13/21 1244 Levothyroxine Sodium (Levothyroxine Sodium) 150 Mcg Tablet, 150 MCG PO HS, (Reported) Entered as Reported by: YARA JUAREZ on 09/04/15 1524 Povidone (Soothe Hydration) 1.25 % Drops, 1-2 DROPS OU UD PRN for DRY EYES, (Reported) Entered as Reported by: RAAD LANDRY on 09/13/21 1220 Rosuvastatin Calcium (Rosuvastatin Calcium) 5 Mg Tablet, 5 MG PO HS, (Reported) Entered as Reported by: RAAD LANDRY on 09/13/21 1220 Last Action: Reviewed Warfarin Sodium (Warfarin Sodium) 5 Mg Tablet, 5 MG PO MARIE,MO,WE,FR @HS, (Reported) Entered as Reported by: YARA JUAREZ on 09/04/15 1542 Last Action: Reviewed Warfarin Sodium (Warfarin Sodium) 5 Mg Tablet, 7.5 MG PO ,,SA @HS, (Reported) Entered as Reported by: RAAD LANDRY on 01/30/20 1138 Last Action: Reviewed Discontinued Medications Aspirin (Aspirin EC) 81 Mg Tablet.dr, 81 MG PO HS, (Reported) Entered as Reported by: RAAD LANDRY on 01/30/20 1138 Last Action: Discontinued Exam Vital Signs Vital Signs Date Time Temp Pulse Resp B/P (MAP) Pulse Ox O2 Delivery O2 Flow Rate FiO2 10/06/21 09:22 63 16 123/85 (98) 95 Room Air 10/06/21 08:02 35.9 10/06/21 04:00 2.00 10/06/21 00:04 21 Physical Exam General: Alert. No acute distress. Well nourished and appears stated age. She is morbidly obese. Eye: Extraocular movements are intact. Conjunctivae are clear. There are no xanthelasma. HENT: Normocephalic. Atraumatic. Carotid pulsations 2/2 without bruits. Neck: Jugular venous pressure does not appear elevated. No thyromegaly appreciated. Respiratory: Lungs are clear to auscultation. Respirations are non-labored. Breath sounds are equal. Symmetrical chest wall expansion. Cardiovascular: Normal rate. Regular rhythm. Distant S1/S2. No murmur. No gallop. Point of maximal impulse is not appear displaced. Good pulses equal in all extremities. No edema. Gastrointestinal: Soft. Normal bowel sounds. Skin: Skin turgor is normal. There is no pallor. Musculoskeletal: No kyphosis or scoliosis appreciated. Neurologic: Alert and oriented to person, place, time. Cranial nerves 3-12 a ppear grossly intact. The patient has good motor tone strength in the upper and lower extremities bilaterally. Psychiatric: Cooperative. Appropriate mood & affect. Labs Laboratory Tests Test 10/05/21 18:35 10/06/21 00:49 10/06/21 05:42 Range/Units White Blood Count 9.0 7.6 4.3-11.0 10^3/uL Red Blood Count 4.29 4.05 3.80-5.11 10^6/uL Hemoglobin 12.6 11.9 11.5-16.0 g/dL Hematocrit 40 39 35-52 % Mean Corpuscular Volume 93 95 80-99 fL Mean Corpuscular Hemoglobin 29 29 25-34 pg Mean Corpuscular Hemoglobin Concent 32 31 L 32-36 g/dL Red Cell Distribution Width 14.8 H 14.8 H 10.0-14.5 % Platelet Count 181 155 130-400 10^3/uL Mean Platelet Volume 10.7 11.1 9.0-12.2 fL Immature Granulocyte % (Auto) 0 0 % Neutrophils (%) (Auto) 61 56 42-75 % Lymphocytes (%) (Auto) 29 35 12-44 % Monocytes (%) (Auto) 9 7 0-12 % Eosinophils (%) (Auto) 1 1 0-10 % Basophils (%) (Auto) 0 0 0-10 % Neutrophils # (Auto) 5.5 4.3 1.8-7.8 10^3/uL Lymphocytes # (Auto) 2.6 2.6 1.0-4.0 10^3/uL Monocytes # (Auto) 0.8 0.5 0.0-1.0 10^3/uL Eosinophils # (Auto) 0.1 0.1 0.0-0.3 10^3/uL Basophils # (Auto) 0.0 0.0 0.0-0.1 10^3/uL Immature Granulocyte # (Auto) 0.0 0.0 0.0-0.1 10^3/uL Prothrombin Time 22.2 H 12.2-14.7 SEC INR Comment 1.9 H 0.8-1.4 Activated Partial Thromboplast Time 37 H 24-35 SEC Sodium Level 139 139 135-145 MMOL/L Potassium Level 4.1 4.4 3.6-5.0 MMOL/L Chloride Level 102 101 98-107 MMOL/L Carbon Dioxide Level 22 26 21-32 MMOL/L Anion Gap 15 H 12 5-14 MMOL/L Blood Urea Nitrogen 10 10 7-18 MG/DL Creatinine 0.83 0.76 0.60-1.30 MG/DL Estimat Glomerular Filtration Rate 79 88 BUN/Creatinine Ratio 12 13 Glucose Level 132 H 108 H 70-105 MG/DL Calcium Level 9.3 9.3 8.5-10.1 MG/DL Corrected Calcium 9.5 9.7 8.5-10.1 MG/DL Magnesium Level 2.0 1.6-2.4 MG/DL Total Bilirubin 0.3 0.3 0.1-1.0 MG/DL Aspartate Amino Transf (AST/SGOT) 18 21 5-34 U/L Alanine Aminotransferase (ALT/SGPT) 19 19 0-55 U/L Alkaline Phosphatase 97 86 40-136 U/L Myoglobin 26.6 10.0-92.0 NG/ML Troponin I < 0.028 < 0.028 < 0.028 <0.028 NG/ML B-Type Natriuretic Peptide 17.0 <100.0 PG/ML Total Protein 7.4 6.7 6.4-8.2 GM/DL Albumin 3.8 3.5 3.2-4.5 GM/DL Lipase 61 8-78 U/L Triglycerides Level 243 H <150 MG/DL Cholesterol Level 213 H < 200 MG/DL LDL Cholesterol Direct 148 H 1-129 MG/DL VLDL Cholesterol 49 H 5-40 MG/DL HDL Cholesterol 35 L 40-60 MG/DL Thyroid Stimulating Hormone (TSH) 4.00 0.35-4.94 UIU/ML ECG Impression ECG Comment Electrocardiogram from this morning shows sinus bradycardia at 57 beats per minutes with low voltage in the precordial leads. No ischemic changes. Diagnosis/Problems Diagnosis/Problems (1) Coronary artery disease with unstable angina pectoris Assessment & Plan: She seems to have chronic angina but again has developed more accelerated symptoms. Unfortunately, due to her difficulty swallowing pills and rash from long-acting nitrates, this makes it somewhat difficult to administer the best medication for angina. She had previously been using diltiazem CD but was opening the capsules and just swallowing the contents. From her outpatient medication reconciliation, it appears as though she may have recently been given isosorbide dinitrate but this is also a capsule. She does not recall taking beta-blockers in the past. Isosorbide mononitrate and ranolazine cannot be crushed. I will try her on metoprolol tartrate 25 mg twice daily. This can be crushed. She should continue on aspirin. I had previously recommended stopping her clopidogrel because she also takes warfarin for previous pulmonary embolism. (2) Primary hypertension Assessment & Plan: As above, she had been on both short acting and long-acting diltiazem in the past but still had angina. I will see how she does with metoprolol tartrate for her hypertension. (3) Mixed hyperlipidemia Assessment & Plan: Her LDL level is again markedly elevated. I had previously asked her to start ezetimibe but I cannot tell if she filled the prescription. She does not know whether or not she is taking this. I will increase her dose of rosuvastatin and restart ezetimibe. (4) Gastroesophageal reflux disease without esophagitis Assessment & Plan: Unclear whether or not this could be contributing to her chest discomfort. I recommend starting her on a proton pump inhibitor. (5) Chronic anticoagulation Status: Acute Assessment & Plan: As I had noted during her previous hospitalization, prolonged use of triple therapy carries an increased risk of hemorrhagic side effects. She previously stated she would prefer to stop clopidogrel as opposed to aspirin. I recommend she resume aspirin and warfarin without clopidogrel. (6) Morbid obesity Assessment & Plan: She needs to work on weight loss. This is not helping her situation with her angina or her other noncardiac conditions. (7) Difficulty swallowing pills Assessment & Plan: As above, this makes administering the most appropriate medications for coronary artery disease somewhat difficult. Problem Qualifiers (1) Coronary artery disease with unstable angina pectoris: Coronary Disease-Associated Artery/Lesion type: unspecified vessel or lesion type [place] vs. transplanted heart: [place] heart Qualified Codes: I25.110 - Atherosclerotic heart disease of [place] coronary artery with unstable angina pectoris NATALIYA ROBERSON JR, MD October 06, 2021 09:39
[2021-10-06] MEDS ORDERED: meTOprolol TARTRATE 25 MG (LOPRESSOR) TABLET PO ONE (09:45)
[2021-10-06] MEDS ORDERED: ENOXAPARIN 60 MG/0.6 ML (LOVENOX) SYR SC SCH (10:00)
[2021-10-06] MEDS ORDERED: PANTOPRAZOLE 40 MG (PROTONIX) TAB PO ONE (10:00)
[2021-10-06] MEDS: meTOprolol TARTRATE 25 MG (LOPRESSOR) TABLET PO SCH (20:12)
[2021-10-06] MEDS ORDERED: eZETimibe 10 MG (ZETIA) TABLET PO SCH (21:00)
[2021-10-06] MEDS ORDERED: warFARin 5 MG (COUMADIN) TAB PO SCH (21:00)
[2021-10-06] MEDS ORDERED: ROSUVASTATIN 20 MG (CRESTOR) TABLET PO SCH (21:00)
[2021-10-07] VITALS: BP 125/70
[2021-10-07 04:00] VITALS: BP 125/56
[2021-10-07 05:04] LABS: BASOPHILS % (AUTO) 0 % (0-10); EOSINOPHILS # (AUTO) 0.1 10^3/uL (0.0-0.3); EOSINOPHILS % (AUTO) 2 % (0-10); HEMATOCRIT 41 % (35-52); HEMOGLOBIN 12.7 g/dL (11.5-16.0); LYMPHOCYTES # (AUTO) 1.6 10^3/uL (1.0-4.0); LYMPHOCYTES % (AUTO) 20 % (12-44); MEAN CORPUSCULAR HEMOGLOBIN 29 pg (25-34); MEAN CORPUSCULAR HGB CONC 31 g/dL (32-36); MEAN CORPUSCULAR VOLUME 95 fL (80-99); MEAN PLATELET VOLUME 10.6 fL (9.0-12.2); MONOCYTES # (AUTO) 0.6 10^3/uL (0.0-1.0); MONOCYTES % (AUTO) 8 % (0-12); NEUTROPHILS # (AUTO) 5.4 10^3/uL (1.8-7.8); NEUTROPHILS % (AUTO) 70 % (42-75); PLATELET COUNT 161 10^3/uL (130-400); WHITE BLOOD COUNT 7.7 10^3/uL (4.3-11.0)
[2021-10-07 05:18] LABS: ALBUMIN 3.6 GM/DL (3.2-4.5); POTASSIUM 4.6 MMOL/L (3.6-5.0)
[2021-10-07 05:19] LABS: CALCIUM 9.1 MG/DL (8.5-10.1)
[2021-10-07 05:21] LABS: TOTAL PROTEIN 6.8 GM/DL (6.4-8.2)
[2021-10-07 05:22] LABS: BILIRUBIN,TOTAL 0.3 MG/DL (0.1-1.0)
[2021-10-07 05:24] LABS: CREATININE SERUM 0.88 MG/DL (0.60-1.30)
[2021-10-07] MEDS: LEVOTHYROXINE 150 MCG (LEVOTHROID) TAB PO SCH (05:41)
--- NOTE | 2021-10-07 07:20 | Progress Note - Hospitalist ---
Subjective HPI/CC On Admission Date Seen by Provider: October 07, 2021 Time Seen by Provider: 10:00 CC: Unstable angina HPI: This is a 65yoWF known to me from recent admit for angina who did not follow up with her Deputy [employer] as instructed last visit and she presented to the ER with symptoms suggestive of ACS. Dr Jackson will increase her BB and decide cath tomorrow or not. Objective Exam Vital Signs Vital Signs Date Time Temp Pulse Resp B/P (MAP) Pulse Ox O2 Delivery O2 Flow Rate FiO2 10/07/21 08:42 Room Air 10/07/21 08:00 35.8 10/07/21 08:00 66 21 119/53 (75) 94 2.00 10/06/21 00:04 21 Capillary Refill : Less Than 3 Seconds Results/Procedures Lab Laboratory Tests 10/07/21 04:42 Patient resulted labs reviewed. Diagnosis/Problems Diagnosis/Problems (1) Unstable angina Status: Acute (2) Atypical chest pain Status: Acute Clinical Quality Measures AMI/AHF: ASA po Prior to arrival: Yes (324 asprin given in ed) HUMA JARA DO October 07, 2021 07:20
[2021-10-07 08:00] VITALS: BP 119/53
[2021-10-07] MEDS ORDERED: PANTOPRAZOLE 40 MG (PROTONIX) TAB PO SCH (09:00)
[2021-10-07] MEDS: meTOprolol TARTRATE 25 MG (LOPRESSOR) TABLET PO SCH (09:06)
[2021-10-07] MEDS: ASPIRIN E.C. 81 MG (ECOTRIN) TAB PO SCH (09:06)
[2021-10-07] MEDS: DOCUSATE SODIUM 100 MG (COLACE) CAP PO SCH (09:06)
[2021-10-07] MEDS: SENNOSIDES 8.6 MG (SENOKOT) TAB PO SCH (09:07)
[2021-10-07] MEDS ORDERED: ASPI-1238 PO (09:10)
[2021-10-07] MEDS ORDERED: EZET10TA49 PO (09:10)
[2021-10-07] MEDS ORDERED: METO-333 PO (09:10)
[2021-10-07] MEDS ORDERED: NITR0.4T42 SL (09:10)
[2021-10-07] MEDS ORDERED: ROSU20TA32 PO (09:10)
[2021-10-07] MEDS ORDERED: OMEP40CA6 PO (09:10)
--- NOTE | 2021-10-07 09:16 | Cardiology Progress Note ---
Progress Note-Cardiology Events since last exam Date Seen by Provider: October 07, 2021 Time Seen by Provider: 09:10 Events since last exam I am following her due to chest pain consistent with probable angina. She s tates she had been taking omeprazole 20 mg daily at home. She had previously been taking diltiazem CD but opening the capsules and swallowing the contents. She was recently started on isosorbide dinitrate by her regular city planning teacher and was also opening these capsules and swallowing the contents. On 10/06 I started her on metoprolol tartrate. She feels as though her chest discomfort is improved although she did have 1 brief twinge of chest pain this morning. She denies dyspnea at rest, palpitations, or syncope. She has mild ankle edema which is chronic and unchanged. She would like to go home today. Certain portions of this document may have been dictated utilizing voice recognition technology. Inherent to this technology, typographical and grammatical errors may exist. As much as I am diligent to identify and correct these mistakes, some errors may remain in the document. Vitals Last set of Vitals Signs Vital Signs 10/06/21 10/07/21 10/07/21 00:04 08:00 08:42 Temp 35.8 Pulse 66 Resp 21 B/P (MAP) 119/53 (75) Pulse Ox 94 O2 Delivery Room Air O2 Flow Rate 2.00 FiO2 21 Labs Labs Laboratory Tests 10/07/21 04:42 Exam Vital Signs Vital Signs Date Time Temp Pulse Resp B/P (MAP) Pulse Ox O2 Delivery O2 Flow Rate FiO2 10/07/21 08:42 Room Air 10/07/21 08:00 35.8 10/07/21 08:00 66 21 119/53 (75) 94 2.00 10/06/21 00:04 21 Physical Exam General: Alert. No acute distress. She is morbidly obese. Eye: No xanthelasma. HENT: Normocephalic. Neck: Jugular venous pressure does not appear elevated. Respiratory: Lungs are clear to auscultation. Respirations are non-labored. Breath sounds are equal. Symmetrical chest wall expansion. Cardiovascular: Normal rate. Regular rhythm. No murmur. No gallop. Trace bilateral pretibial edema. Gastrointestinal: Soft. Normal bowel sounds. Skin: Warm. Dry. Neurologic: Alert and oriented to person, place, time. Cranial nerves 3-11 grossly intact. Psychiatric: Cooperative. Appropriate mood & affect. Labs Laboratory Tests Test 10/07/21 04:42 Range/Units White Blood Count 7.7 4.3-11.0 10^3/uL Red Blood Count 4.34 3.80-5.11 10^6/uL Hemoglobin 12.7 11.5-16.0 g/dL Hematocrit 41 35-52 % Mean Corpuscular Volume 95 80-99 fL Mean Corpuscular Hemoglobin 29 25-34 pg Mean Corpuscular Hemoglobin Concent 31 L 32-36 g/dL Red Cell Distribution Width 14.6 H 10.0-14.5 % Platelet Count 161 130-400 10^3/uL Mean Platelet Volume 10.6 9.0-12.2 fL Immature Granulocyte % (Auto) 0 % Neutrophils (%) (Auto) 70 42-75 % Lymphocytes (%) (Auto) 20 12-44 % Monocytes (%) (Auto) 8 0-12 % Eosinophils (%) (Auto) 2 0-10 % Basophils (%) (Auto) 0 0-10 % Neutrophils # (Auto) 5.4 1.8-7.8 10^3/uL Lymphocytes # (Auto) 1.6 1.0-4.0 10^3/uL Monocytes # (Auto) 0.6 0.0-1.0 10^3/uL Eosinophils # (Auto) 0.1 0.0-0.3 10^3/uL Basophils # (Auto) 0.0 0.0-0.1 10^3/uL Immature Granulocyte # (Auto) 0.0 0.0-0.1 10^3/uL Sodium Level 140 135-145 MMOL/L Potassium Level 4.6 3.6-5.0 MMOL/L Chloride Level 100 98-107 MMOL/L Carbon Dioxide Level 27 21-32 MMOL/L Anion Gap 13 5-14 MMOL/L Blood Urea Nitrogen 12 7-18 MG/DL Creatinine 0.88 0.60-1.30 MG/DL Estimat Glomerular Filtration Rate 74 BUN/Creatinine Ratio 14 Glucose Level 107 H 70-105 MG/DL Calcium Level 9.1 8.5-10.1 MG/DL Corrected Calcium 9.4 8.5-10.1 MG/DL Total Bilirubin 0.3 0.1-1.0 MG/DL Aspartate Amino Transf (AST/SGOT) 16 5-34 U/L Alanine Aminotransferase (ALT/SGPT) 17 0-55 U/L Alkaline Phosphatase 88 40-136 U/L Total Protein 6.8 6.4-8.2 GM/DL Albumin 3.6 3.2-4.5 GM/DL Diagnosis/Problems Diagnosis/Problems (1) Coronary artery disease with unstable angina pectoris Assessment & Plan: She seems to have chronic angina but again has developed more accelerated symptoms. Unfortunately, due to her difficulty swallowing pills and rash from long-acting nitrates, this makes it somewhat difficult to administer the best medication for angina. She had previously been using diltiazem CD but was opening the capsules and just swallowing the contents. From her outpatient medication reconciliation, it appears as though she may have recently been given isosorbide dinitrate but this is also a capsule which she was opening and swallowing the contents. She does not recall taking beta- blockers in the past. Isosorbide mononitrate and ranolazine cannot be crushed. She seems improved with metoprolol tartrate although has only received 1 dose. This can be crushed. She should continue on aspirin. I had previously recommended stopping her clopidogrel because she also takes warfarin for previous pulmonary embolism. From a cardiac standpoint, she can be discharged to home. I have also doubled her dose of omeprazole and sent a new prescription to her pharmacy. I recommended she contact her regular city planning teacher at [facility] in [place], [place] tomorrow to discuss whether or not she should have any additional testing. She had seen that provider after her previous hospitalization earlier this month and teammate the change in her medication outlined above but did not plan to see her again until February. I personally think she needs an ischemic evaluation. I told her if she has recurrent chest discomfort and her regular city planning teacher does not want to do any additional testing, she can contact my office and I can arrange for a stress test or cardiac catheterization here at [facility] in [place], [place]. (2) Primary hypertension Assessment & Plan: As above, she had been on both short acting and long-acting diltiazem in the past but still had angina. Her blood pressure appears to be reasonably controlled with the metoprolol tartrate. (3) Mixed hyperlipidemia Assessment & Plan: Her LDL level is again markedly elevated. I had previously asked her to start ezetimibe but I cannot tell if she filled the prescription. She does not know whether or not she is taking this. I recommend she be discharged with a higher dose of rosuvastatin as well as the addition of ezetimibe. I have sent both prescriptions to [facility] in [place] electronically. (4) Gastroesophageal reflux disease without esophagitis Assessment & Plan: Unclear whether or not this could be contributing to her chest discomfort. As above, she had been taking omeprazole 20 mg daily. She received 1 dose of Protonix here in the hospital. I have sent a prescription for omeprazole [address] her [facility] pharmacy in [place]. (5) Aortic stenosis Assessment & Plan: Her echocardiogram from this admission showed mild aortic stenosis although the aortic valve structure itself was not well visualized. There should not be causing symptoms but will need to be followed longitudinally by her regular city planning teacher at the outside facility. (6) Chronic anticoagulation Status: Acute Assessment & Plan: As I had noted during her previous hospitalization, prolonged use of triple therapy carries an increased risk of hemorrhagic side effects. She previously stated she would prefer to stop clopidogrel as opposed to aspirin. I recommend she resume aspirin and warfarin without clopidogrel. (7) Morbid obesity Assessment & Plan: She needs to work on weight loss. This is not helping her situation with her angina or her other noncardiac conditions. (8) Difficulty swallowing pills Assessment & Plan: As above, this makes administering the most appropriate medications for coronary artery disease somewhat difficult. Problem Qualifiers (1) Coronary artery disease with unstable angina pectoris: Coronary Disease-Associated Artery/Lesion type: unspecified vessel or lesion type [place] vs. transplanted heart: [place] heart Qualified Codes: I25.110 - Atherosclerotic heart disease of [place] coronary artery with unstable angina pectoris NATALIYA ROBERSON JR, MD October 07, 2021 09:16
--- NOTE | 2021-10-07 10:10 | Discharge Summary ---
Discharge Summary Hospital Course Was the Problem List Reviewed?: Yes Problems/Dx: (1) Coronary artery disease with unstable angina pectoris Qualifiers: Qualified Codes: I25.110 - Atherosclerotic heart disease of robinson coronary artery with unstable angina pectoris (2) Primary hypertension (3) Mixed hyperlipidemia (4) Gastroesophageal reflux disease without esophagitis (5) Aortic stenosis (6) Chronic anticoagulation Status: Acute (7) Morbid obesity (8) Difficulty swallowing pills Hospital Course Date of Admission: October 05, 2021 at 20:08 Admission Diagnosis : Family Physician/Provider: Chaparro Waite Date of Discharge: 10/07/21 Discharge Diagnosis: angina, CAD, obesity Hospital Course: Short course after admitted for unstable angina. Dr Jackson consulted. Trop all negative. Meds adjusted. Patient DC. Labs and Pending Lab Test: Laboratory Tests 10/07/21 04:42: White Blood Count 7.7, Red Blood Count 4.34, Hemoglobin 12.7, Hematocrit 41, Mean Corpuscular Volume 95, Mean Corpuscular Hemoglobin 29, Mean Corpuscular Hemoglobin Concent 31L, Red Cell Distribution Width 14.6H, Platelet Count 161, Mean Platelet Volume 10.6, Immature Granulocyte % (Auto) 0, Neutrophils (%) (Auto) 70, Lymphocytes (%) (Auto) 20, Monocytes (%) (Auto) 8, Eosinophils (%) (Auto) 2, Basophils (%) (Auto) 0, Neutrophils # (Auto) 5.4, Lymphocytes # (Auto) 1.6, Monocytes # (Auto) 0.6, Eosinophils # (Auto) 0.1, Basophils # (Auto) 0.0, Immature Granulocyte # (Auto) 0.0, Sodium Level 140, Potassium Level 4.6, Chloride Level 100, Carbon Dioxide Level 27, Anion Gap 13, Blood Urea Nitrogen 12, Creatinine 0.88, Estimat Glomerular Filtration Rate 74, BUN/Creatinine Ratio 14, Glucose Level 107H, Calcium Level 9.1, Corrected Calcium 9.4, Total Bilirubin 0.3, Aspartate Amino Transf (AST/SGOT) 16, Alanine Aminotransferase (ALT/SGPT) 17, Alkaline Phosphatase 88, Total Protein 6.8, Albumin 3.6 Home Meds Active Omeprazole 40 Mg Capsule.dr 40 Mg PO DAILY Aspirin EC (Aspirin) 81 Mg Tablet.dr 81 Mg PO DAILY Metoprolol Tartrate 25 Mg Tablet 25 Mg PO BID Nitroglycerin 0.4 Mg Tab.subl 0.4 Mg SL UD PRN Rosuvastatin Calcium 20 Mg Tablet 20 Mg PO HS Ezetimibe 10 Mg Tablet 10 Mg PO HS Isosorbide Dinitrate 20 Mg Tablet 20 Mg PO BID@07,17 Reported Soothe Hydration (Povidone) 1.25 % Drops 1-2 Drops OU UD PRN Rosuvastatin Calcium 5 Mg Tablet 5 Mg PO HS LAST FILLED 05-13-2021 #90/90 DAY SUPPLY Plavix (Clopidogrel Bisulfate) 75 Mg Tablet 75 Mg PO HS LAST FILLED 06-20-2021 #30/ DAY SUPPLY Warfarin Sodium 5 Mg Tablet 7.5 Mg PO ,,SA @HS TAKES 1 & (5MG) TABS Ventolin Hfa (Albuterol Sulfate) 18 Gm Hfa.aer.ad 1 Puff INH Q4H PRN Acetaminophen 500 Mg Tablet 500-1,000 Mg PO Q8H PRN Warfarin Sodium 5 Mg Tablet 5 Mg PO MARIE,MO,WE,FR @HS Levothyroxine Sodium 150 Mcg Tablet 150 Mcg PO HS LAST FILLED 05-13-2021 #90/90 DAY SUPPLY Assessment/Pt Instructions PCP 1 week Discharge Planning: <30 minutes discharge planning Discharge Instructions Discharge Diet: Cardiac Diet Discharge Physical Examination Vital Signs Vital Signs Date Time Temp Pulse Resp B/P (MAP) Pulse Ox O2 Delivery O2 Flow Rate FiO2 10/07/21 08:42 Room Air 10/07/21 08:00 35.8 10/07/21 08:00 66 21 119/53 (75) 94 2.00 10/06/21 00:04 21 General Appearance: No Apparent Distress, WD/WN, Chronically ill, Obese Allergies: Coded Allergies: methylprednisolone (Verified Allergy, Mild, 11/05/18) Penicillins (Unverified Allergy, Unknown, 11/05/18) atorvastatin (Verified Allergy, Unknown, 11/05/18) isosorbide (Verified Allergy, Unknown, 11/05/18) ketorolac (Verified Allergy, Unknown, ITCHING, 11/05/18) promethazine (Unverified Allergy, Unknown, hallucinations, 11/05/18) venom-honey bee (Unverified Allergy, Unknown, 11/05/18) Uncoded Allergies: TAPE (Allergy, Unknown, 08/16/13) Discharge Summary Date of Admission October 05, 2021 at 20:08 Date of Discharge Discharge Date: October 07, 2021 Admission Diagnosis Assessment: Unstable angina CAD previous stents Morbid obesity HTN HLP Chronic DUBOIS Plan: Supportive care Monitor CP Discharge Diagnosis (1) Coronary artery disease with unstable angina pectoris Assessment & Plan: She seems to have chronic angina but again has developed more accelerated symptoms. Unfortunately, due to her difficulty swallowing pills and rash from long-acting nitrates, this makes it somewhat difficult to administer the best medication for angina. She had previously been using diltiazem CD but was opening the capsules and just swallowing the contents. From her outpatient medication reconciliation, it appears as though she may have recently been given isosorbide dinitrate but this is also a capsule which she was opening and swallowing the contents. She does not recall taking beta- blockers in the past. Isosorbide mononitrate and ranolazine cannot be crushed. She seems improved with metoprolol tartrate although has only received 1 dose. This can be crushed. She should continue on aspirin. I had previously recommended stopping her clopidogrel because she also takes warfarin for previous pulmonary embolism. From a cardiac standpoint, she can be discharged to home. I have also doubled her dose of omeprazole and sent a new prescription to her pharmacy. I recommended she contact her regular camp director at [facility] in [place], [place] tomorrow to discuss whether or not she should have any additional testing. She had seen that provider after her previous hospitalization earlier this month and teammate the change in her medication outlined above but did not plan to see her again until February. I personally think she needs an ischemic evaluation. I told her if she has recurrent chest discomfort and her regular camp director does not want to do any additional testing, she can contact my office and I can arrange for a stress test or cardiac catheterization here at [facility] in [place], [place]. Qualifiers: Qualified Codes: I25.110 - Atherosclerotic heart disease of robinson coronary artery with unstable angina pectoris (2) Primary hypertension Assessment & Plan: As above, she had been on both short acting and long-acting diltiazem in the past but still had angina. Her blood pressure appears to be reasonably controlled with the metoprolol tartrate. (3) Mixed hyperlipidemia Assessment & Plan: Her LDL level is again markedly elevated. I had previously asked her to start ezetimibe but I cannot tell if she filled the prescription. She does not know whether or not she is taking this. I recommend she be discharged with a higher dose of rosuvastatin as well as the addition of ezetimibe. I have sent both prescriptions to [facility] in [place] electronically. (4) Gastroesophageal reflux disease without esophagitis Assessment & Plan: Unclear whether or not this could be contributing to her chest discomfort. As above, she had been taking omeprazole 20 mg daily. She received 1 dose of Protonix here in the hospital. I have sent a prescription for omeprazole 40 mg daily to her [facility] pharmacy in [place]. (5) Aortic stenosis Assessment & Plan: Her echocardiogram from this admission showed mild aortic stenosis although the aortic valve structure itself was not well visualized. There should not be causing symptoms but will need to be followed longitudinally by her regular camp director at the outside facility. (6) Chronic anticoagulation Status: Acute Assessment & Plan: As I had noted during her previous hospitalization, prolonged use of triple therapy carries an increased risk of hemorrhagic side effects. She previously stated she would prefer to stop clopidogrel as opposed to aspirin. I recommend she resume aspirin and warfarin without clopidogrel. (7) Morbid obesity Assessment & Plan: She needs to work on weight loss. This is not helping her situation with her angina or her other noncardiac conditions. (8) Difficulty swallowing pills Assessment & Plan: As above, this makes administering the most appropriate medications for coronary artery disease somewhat difficult. Clinical Quality Measures AMI/AHF: ASA po Prior to arrival: Yes (324 asprin given in ed) HUMA JARA DO October 07, 2021 10:10
[2021-10-07 15:13] VITALS: BP 119/53
[2021-10-08] MEDS ORDERED: warFARin 7.5 MG (COUMADIN) TAB PO SCH (21:00)
== END 2021-10-07 10:50 | disposition home or self-care (01) ==
LOC: EDUNIT# 18:29 → ER 18:30 → ICU 20:08
PROVIDERS: ADMIT Internal Medicine; ATTEND Internal Medicine
DX: I25.110 Atherosclerotic heart disease of native coronary artery with unstable angina pectoris (principal); E66.01 Morbid (severe) obesity due to excess calories; I10 Essential (primary) hypertension; E78.5 Hyperlipidemia, unspecified; R51.9 Headache, unspecified; Z79.899 Other long term (current) drug therapy; Z68.43 Body mass index [BMI] 50.0-59.9, adult; Z79.82 Long term (current) use of aspirin; Z79.01 Long term (current) use of anticoagulants
CPT/HCPCS: 36415; 71045; 80053; 80061; 83690; 83735; 83874; 83880; 84443; 84484; 85025; 85610; 85730; 93005; 93306; 96372

== ENCOUNTER 2021-11-21 10:29 | Observation (INO) | payer MEDICARE, MEDICAID ==
[~2021-11-21] VITALS: Ht 157.5 cm; Wt 134.8 kg
[2021-11-21] VITALS (14 sets, daily range): BP systolic 103–154; BP diastolic 61–96
[~2021-11-21 10:29] MED LIST changes: +OMEP40CA6 PO
[2021-11-21] MEDS ORDERED: morphine INJ 10 MG/ML 1ML (SYR OR VIAL) IV STA (11:29)
[2021-11-21] MEDS ORDERED: ASPIRIN 81 MG CHEW (CHILDREN'S ASA) PO ONE (11:30)
[2021-11-21 11:35] LABS: BASOPHILS % (AUTO) 0 % (0-10); EOSINOPHILS # (AUTO) 0.1 10^3/uL (0.0-0.3); EOSINOPHILS % (AUTO) 1 % (0-10); HEMATOCRIT 40 % (35-52); HEMOGLOBIN 12.3 g/dL (11.5-16.0); LYMPHOCYTES % (AUTO) 23 % (12-44); MEAN CORPUSCULAR HEMOGLOBIN 29 pg (25-34); MEAN CORPUSCULAR HGB CONC 31 g/dL (32-36); MEAN CORPUSCULAR VOLUME 95 fL (80-99); MEAN PLATELET VOLUME 11.1 fL (9.0-12.2); MONOCYTES # (AUTO) 0.5 10^3/uL (0.0-1.0); MONOCYTES % (AUTO) 6 % (0-12); NEUTROPHILS # (AUTO) 6.1 10^3/uL (1.8-7.8); NEUTROPHILS % (AUTO) 70 % (42-75); PLATELET COUNT 189 10^3/uL (130-400); WHITE BLOOD COUNT 8.7 10^3/uL (4.3-11.0)
--- NOTE | 2021-11-21 11:37 | ED Chest Pain ---
General Chief Complaint: Chest Pain Stated Complaint: CP Nursing Triage Note: PATIENT ARRIVES TODAY WITH A C/O CHEST PAIN THAT HAS BEEN HAPPENING INTERMITTANTLY FOR 2 DAYS. HX OF STENTS AND HTN. Source: patient Exam Limitations: no limitations History of Present Illness Date Seen by Provider: Nov 21, 2021 Time Seen by Provider: 11:00 Initial Comments The patient presents ER by private conveyance chief complaint that for the past 4 days she been having some intermittent achy, stabbing left chest pain. This is her chronic anginal pain. She has been using 2 doses of nitroglycerin yesterday and put on a nitroglycerin patch today which helped some but she still rates it as a 7 out of 10. She also feels lightheaded/dizzy at times. No vomiting fevers or chills. She does have some nausea. She was followed by Dr. Duggan for cardiology and Nataliya Waite for primary care. She was recently started on Metoprolol tartrate and doubled her omeprazole. She was offered a cardiac catheterization 2 months ago during her observation for chest pain and declined wanting to follow-up with her primary baccarat manager. She has plans to get a stress test and/or cardiac catheterization to her primary care office next month. Patient states that she felt tired and could only sleep all the time on the new medications so she discontinued both of them about 3 days after starting them. She is on warfarin and aspirin. She has a history of hypertension, hyperlipidemia on a statin, previous coronary disease, no history of COPD or diabetes. She does use CPAP for GOPAL. She is on warfarin for history of DVTs Allergies and Home Medications Allergies Coded Allergies: methylprednisolone (Verified Allergy, Mild, 11/05/18) Penicillins (Unverified Allergy, Unknown, 11/05/18) atorvastatin (Verified Allergy, Unknown, 11/05/18) isosorbide (Verified Allergy, Unknown, 11/05/18) ketorolac (Verified Allergy, Unknown, ITCHING, 11/05/18) promethazine (Unverified Allergy, Unknown, hallucinations, 11/05/18) venom-honey bee (Unverified Allergy, Unknown, 11/05/18) Uncoded Allergies: TAPE (Allergy, Unknown, 08/16/13) Patient Home Medication List Home Medication List Reviewed: Yes Acetaminophen (Acetaminophen) 500 Mg Tablet, 500-1,000 MG PO Q8H PRN for PAIN- MILD (1-4), (Reported) Entered as Reported by: YARA JUAREZ on 09/04/15 1558 Albuterol Sulfate (Ventolin Hfa) 18 Gm Hfa.aer.ad, 1 PUFF INH Q4H PRN for SHORTNESS OF BREATH, (Reported) Entered as Reported by: KSENIA PIÑA on 08/19/17 0947 Aspirin (Aspirin EC) 81 Mg Tablet.dr, 81 MG PO DAILY Prescribed by: NATALIYA ROBERSON JR, MD on 10/07/21 0910 Ezetimibe (Ezetimibe) 10 Mg Tablet, 10 MG PO HS Prescribed by: NATALIYA ROBERSON JR, MD on 10/07/21 0910 Levothyroxine Sodium (Levothyroxine Sodium) 150 Mcg Tablet, 150 MCG PO HS, (Reported) Entered as Reported by: YARA JUAREZ on 09/04/15 1524 Metoprolol Tartrate (Metoprolol Tartrate) 25 Mg Tablet, 25 MG PO BID Prescribed by: NATALIYA ROBERSON JR, MD on 10/07/21 0910 Nitroglycerin (Nitroglycerin) 0.4 Mg Tab.subl, 0.4 MG SL UD PRN for CHEST PAIN (ANGINA) Prescribed by: NATALIYA ROBERSON JR, MD on 10/07/21 0910 Omeprazole (Omeprazole) 40 Mg Capsule.dr, 40 MG PO DAILY Prescribed by: NATALIYA ROBERSON JR, MD on 10/07/21 0910 Povidone (Soothe Hydration) 1.25 % Drops, 1-2 DROPS OU UD PRN for DRY EYES, (Reported) Entered as Reported by: RAAD LANDRY on 09/13/21 1220 Rosuvastatin Calcium (Rosuvastatin Calcium) 20 Mg Tablet, 20 MG PO HS Prescribed by: NATALIYA ROBERSON JR, MD on 10/07/21 0910 Warfarin Sodium (Warfarin Sodium) 5 Mg Tablet, 5 MG PO MARIE,MO,WE,FR @HS, (Reported) Entered as Reported by: YARA JUAREZ on 09/04/15 1542 Warfarin Sodium (Warfarin Sodium) 5 Mg Tablet, 7.5 MG PO ,TH,SA @HS, (Reported) Entered as Reported by: RAAD LANDRY on 01/30/20 1138 Review of Systems Review of Systems Constitutional: No chills, No diaphoresis EENTM: No Blurred Vision, No Double Vision Respiratory: Denies Cough, Denies Shortness of Air Cardiovascular: See HPI, Chest Pain; Denies Edema, Denies Irregular Heart Rate, Denies Lightheadedness Gastrointestinal: Denies Constipated, Denies Diarrhea, Denies Nausea, Denies Vomiting Genitourinary: Denies Discharge, Denies Drainage All Other Systems Reviewed Negative Unless Noted: Yes Past Dmckftq-Nflylk-Lbmwfd Hx Patient Social History Tobacco Use?: No Use of E-Cig and/or Vaping dev: No Substance use?: No Alcohol Use?: No Pt feels they are or have been: No Immunizations Up To Date Tetanus Booster (TDap): Less than 5yrs PED Vaccines UTD: Yes First/Initial COVID19 Vaccinat: DECLINED Second COVID19 Vaccination Lm: n/a Third COVID19 Vaccination Date: n/a Seasonal Allergies Seasonal Allergies: No Past Medical History Surgery/Hospitalization HX: SURGERY HX API, GALLBLADDER, HYSTERECTOMY, CARDIAC STENTS, COLON CANCER Surgeries: Yes Appendectomy, Cardiac, Coronary Stent, Gallbladder, Hysterectomy, Orthopedic, Thyroidectomy Respiratory: Yes (HAS CPAP--DOES NOT USE ON REGULAR BASIS; P.E. X2) Asthma, Pulmonary Embolism, Sleep Apnea Currently Using CPAP: No Currently Using BIPAP: No Cardiac: Yes (P.E. 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 Sexually Transmitted Disease: No HIV/AIDS: No Genitourinary: Yes Bladder Infection, Kidney Stones Gastrointestinal: Yes (S/P GENI) Gastroesophageal Reflux, Chronic Constipation, Gall Bladder Disease Musculoskeletal: Yes Degenerate Disk Disease, Arthritis, Back Injury, Chronic Back Pain, Spasms Endocrine: Yes (MORBID OBESITY; THYROIDECTOMY) Hypothyroidsim HEENT: Yes Loss of Vision: Bilateral Hearing Impairment: Denies Cancer: No Colon Psychosocial: No Depression Integumentary: No Blood Disorders: Yes (BLOOD CLOTS-DVT/P.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 8.0oz. [phone]; 55.00 BMI Method:Stated General Appearance: Mild Distress, Obese HEENT: PERRL/EOMI, Pharynx Normal, Moist Mucous Membranes Neck: Full Range of Motion, Normal Inspection, Non Tender, Supple Respiratory: No Chest Non Tender; Lungs Clear, Normal Breath Sounds, No Accessory Muscle Use, No Respiratory Distress Cardiovascular: Regular Rate, Rhythm, No Edema, Normal Peripheral Pulses Gastrointestinal: Normal Bowel Sounds, Non Tender, Soft Extremity: Normal Capillary Refill, Normal Inspection, No Pedal Edema Neurologic/Psychiatric: Alert, Oriented x3, No Motor/Sensory Deficits Skin: Normal Color, Warm/Dry Progress/Results/Core Measures Results/Orders Lab Results Laboratory Tests Test 11/21/21 10:50 Range/Units White Blood Count 8.7 4.3-11.0 10^3/uL Red Blood Count 4.20 3.80-5.11 10^6/uL Hemoglobin 12.3 11.5-16.0 g/dL Hematocrit 40 35-52 % Mean Corpuscular Volume 95 80-99 fL Mean Corpuscular Hemoglobin 29 25-34 pg Mean Corpuscular Hemoglobin Concent 31 L 32-36 g/dL Red Cell Distribution Width 15.1 H 10.0-14.5 % Platelet Count 189 130-400 10^3/uL Mean Platelet Volume 11.1 9.0-12.2 fL Immature Granulocyte % (Auto) 1 % Neutrophils (%) (Auto) 70 42-75 % Lymphocytes (%) (Auto) 23 12-44 % Monocytes (%) (Auto) 6 0-12 % Eosinophils (%) (Auto) 1 0-10 % Basophils (%) (Auto) 0 0-10 % Neutrophils # (Auto) 6.1 1.8-7.8 10^3/uL Lymphocytes # (Auto) 2.0 1.0-4.0 10^3/uL Monocytes # (Auto) 0.5 0.0-1.0 10^3/uL Eosinophils # (Auto) 0.1 0.0-0.3 10^3/uL Basophils # (Auto) 0.0 0.0-0.1 10^3/uL Immature Granulocyte # (Auto) 0.0 0.0-0.1 10^3/uL Prothrombin Time 21.5 H 12.2-14.7 SEC INR Comment 1.8 H 0.8-1.4 Activated Partial Thromboplast Time 38 H 24-35 SEC Sodium Level 138 135-145 MMOL/L Potassium Level 4.0 3.6-5.0 MMOL/L Chloride Level 104 98-107 MMOL/L Carbon Dioxide Level 22 21-32 MMOL/L Anion Gap 12 5-14 MMOL/L Blood Urea Nitrogen 9 7-18 MG/DL Creatinine 0.80 0.60-1.30 MG/DL Estimat Glomerular Filtration Rate 83 BUN/Creatinine Ratio 11 Glucose Level 210 H 70-105 MG/DL Calcium Level 9.1 8.5-10.1 MG/DL Corrected Calcium 9.3 8.5-10.1 MG/DL Magnesium Level 2.2 1.6-2.4 MG/DL Total Bilirubin 0.3 0.1-1.0 MG/DL Aspartate Amino Transf (AST/SGOT) 20 5-34 U/L Alanine Aminotransferase (ALT/SGPT) 18 0-55 U/L Alkaline Phosphatase 89 40-136 U/L Myoglobin 30.9 10.0-92.0 NG/ML Troponin I < 0.028 <0.028 NG/ML Total Protein 7.2 6.4-8.2 GM/DL Albumin 3.8 3.2-4.5 GM/DL Lipase 50 8-78 U/L My Orders Orders - GIBRAN,VIPIN J Continuous Ekg Monitoring (11/21/21 10:35) Ekg Tracing (11/21/21 10:35) Cbc With Automated Diff (11/21/21 11:29) Magnesium (11/21/21 11:29) Chest 1 View, Ap/Pa Only (11/21/21 11:29) Comprehensive Metabolic Panel (11/21/21 11:29) Myoglobin Serum (11/21/21 11:29) Protime With Inr (7/14/22 11:29) Partial Thromboplastin Time (11/21/21 11:29) O2 (11/21/21 11:29) Monitor-Rhythm Ecg Trace Only (11/21/21 11:29) Lipid Panel (11/22/21 06:00) Ed Iv/Invasive Line Start (11/21/21 11:29) Lipase (11/21/21 11:29) Troponin I Nelly (11/21/21 11:29) Aspirin Chewable Tablet (Baby Aspirin Ch (11/21/21 11:30) Morphine Injection (Morphine Injection (11/21/21 11:29) Pantoprazole Injection (Protonix Injecti (11/21/21 11:45) Medications Given in ED Current Medications Medications Dose Ordered Sig/Marcio Route Start Time Stop Time Status Last Admin Dose Admin Aspirin 324 mg ONCE ONCE PO 11/21/21 11:30 11/21/21 11:31 DC 11/21/21 11:52 324 MG Pantoprazole 40 mg ONCE ONCE IV 11/21/21 11:45 11/21/21 11:46 DC 11/21/21 11:52 40 MG Vital Signs/I&O 11/21/21 11/21/21 10:38 11:46 Temp 37.0 Pulse 66 57 60 79 Resp 18 B/P (MAP) 189/105 (133) 116/63 (80) 128/67 (87) 122/67 (85) Pulse Ox 97 O2 Delivery Room Air Blood Pressure Mean: 133 Progress Progress Note : Time: 11:42 Progress Note We will start with some aspirin, oxygen since her sats are 92% at 2 L by nasal cannula and 2 mg of morphine to see if this improves her 7 out of 10 pain. She has a history of unstable angina and has not had a coronary angiogram in over a year. Initial ECG Impression Date: Nov 21, 2021 Initial ECG Impression Time: 10:40 Initial ECG Rate: 62 Initial ECG Rhythm: Normal Sinus Initial ECG Intervals: Normal Initial ECG Impression: Normal, Nonspecific Changes Initial ECG Comparisson: Unchanged Comment Normal sinus rhythm, low amplitude, no ST elevation or depression. Diagnostic Imaging Diagonstic Imaging: Xray Plain Films/CT/US/NM/MRI: chest Comments [facility] [place], [place] NAME: OTONIEL DUNAWAY [facility] REC#: [id number] PT STATUS: REG ER : 1955 PHYSICIAN: VIPIN LEARY MD ADMIT DATE: 11/21/21/ER Draft Date of Exam:11/21/21 CHEST 1 VIEW, AP/PA ONLY INDICATION: Chest pain. TECHNIQUE: AP view of the chest is obtained with comparison made to study of 10/05/2021. FINDINGS: There is mild cardiomegaly. Pulmonary vascularity is within normal limits. There is no pneumothorax or consolidation. No pleural fluid is identified. Surgical findings are again noted in the lower cervical region. IMPRESSION: Cardiomegaly without acute abnormality or adverse change. Dictated on workstation # [id number] Dict: 11/21/21 1146 Trans: 11/21/21 1154 [id number] Interpreted by: CATHIE ESTRADA MD Electronically signed by: Reviewed: Reviewed by Me Departure Communication (Admissions) Time/Spoke to Admitting Phy: 14:[address] Cullen. 1430: Discussed the case with Dr. Cullen who agrees to observe the patient. She will put in queued orders. She agrees with consultation to cardiology. Time/Spoke to Consulting Phy: 13:[address] Kearney who agrees to observe the patient for ACS rule out. Impression Primary Impression: Unstable angina Disposition: ADMITTED INPATIENT Condition: Stable Admissions Decision to Admit Reason: Admit from ER (General) Decision to Admit/Date: Nov 21, 2021 Time/Decision to Admit Time: 13:30 Departure-Patient Inst. Referrals: [facility] [place] ([place]P) Primary Care Physician NATALIYA WAITE (Family) Primary Care Physician VIPIN LEARY Nov 21, 2021 11:37
[2021-11-21 11:40] LABS: ALBUMIN 3.8 GM/DL (3.2-4.5)
[2021-11-21 11:41] LABS: INR 1.8 (0.8-1.4); PROTHROMBIN TIME PATIENT 21.5 SEC (12.2-14.7)
[2021-11-21 11:42] LABS: CALCIUM 9.1 MG/DL (8.5-10.1)
[2021-11-21 11:43] LABS: TOTAL PROTEIN 7.2 GM/DL (6.4-8.2)
[2021-11-21 11:45] LABS: BILIRUBIN,TOTAL 0.3 MG/DL (0.1-1.0)
[2021-11-21] MEDS ORDERED: PANTOPRAZOLE 40 MG (PROTONIX) VIAL IV ONE (11:45)
[2021-11-21 11:46] LABS: CREATININE SERUM 0.8 MG/DL (0.60-1.30)
[2021-11-21 11:49] LABS: MAGNESIUM 2.2 MG/DL (1.6-2.4)
--- NOTE | 2021-11-21 11:54 | Diagnostic Imaging Report ---
INDICATION: Chest pain. TECHNIQUE: AP view of the chest is obtained with comparison made to study of 10/05/2021. FINDINGS: There is mild cardiomegaly. Pulmonary vascularity is within normal limits. There is no pneumothorax or consolidation. No pleural fluid is identified. Surgical findings are again noted in the lower cervical region. IMPRESSION: Cardiomegaly without acute abnormality or adverse change. Dictated by: Dictated on workstation # [id number]
[2021-11-21] MEDS ORDERED: CALCIUM CARBONATE 500 MG (TUMS) TAB.CHEW PO PRN (16:00)
[2021-11-21] MEDS ORDERED: ONDANSETRON 4 MG/2 ML (SDV) Z0FRAN IV PRN (16:00)
[2021-11-21] MEDS ORDERED: ACETAMINOPHEN 325 MG TABLET PO PRN (16:00)
[2021-11-21] MEDS ORDERED: MELATONIN 3 MG TABLET PO PRN (16:00)
[2021-11-21] MEDS ORDERED: ONDANSETRON 4 MG (ZOFRAN) ORAL DISSOLVE TAB PO PRN (16:00)
[2021-11-21] MEDS ORDERED: polyethylene glycoL POWDER 17 GM (MIRALAX) PACK PO PRN (16:00)
[2021-11-21] MEDS ORDERED: MILK OF MAGNESIA 400 MG/5 ML 30 ML UDC PO PRN (16:00)
[2021-11-21] MEDS ORDERED: PATIENT MAY USE OWN MEDS, ALL PO SCH (16:00)
[2021-11-21] MEDS ORDERED: diphenhydrAMINE 50 MG/ML INJ (BENADRYL) IVP PRN (16:00)
[2021-11-21] MEDS ORDERED: diphenhydrAMINE 25 MG TAB (BENADRYL) PO PRN (16:00)
[2021-11-21] MEDS ORDERED: morphine INJ 4 MG/ML 1 ML (VIAL/SYRINGE) IV PRN ×2 (16:00→16:30)
[2021-11-21] MEDS ORDERED: ANTACID SUSP 30 ML UDC (MYLANTA) PO PRN (16:00)
[2021-11-21] MEDS ORDERED: BISACODYL 10 MG SUPP (DULCOLAX) PR PRN (16:00)
[2021-11-21] MEDS ORDERED: LACTULOSE SYRUP 10GM/15ML (ENULOSE) 30ML UDC PO PRN (16:00)
[2021-11-21] MEDS ORDERED: RT-ALBUTEROL SULF 2.5 MG/3 ML PRE-MIX VIAL INH PRN (16:30)
[2021-11-21] MEDS ORDERED: CATHETER FLUSH 10 ML SYR IVP PRN (16:30)
[2021-11-21] MEDS ORDERED: NITROGLYCERIN 0.4 MG SL TABS BTL 25'S SL PRN (16:30)
[2021-11-21] MEDS: inSUlin ASPART (NovoLOG) 1 UNIT/0.01 ML (CHARGE PER UNIT) SC SCH ×2 (17:00→23:13)
[2021-11-21] MEDS ORDERED: warFARin 5 MG (COUMADIN) TAB PO SCH (18:00)
[2021-11-21] MEDS ORDERED: NITROGLYCERIN 0.2 MG/PATCH (NITRO-DUR) TD PRN (18:00)
[2021-11-21] MEDS ORDERED: NITROGLYCERINE PATCH REMOVAL TP PRN (18:15)
[2021-11-21] MEDS: ALPRAZolam 0.5 MG (XANAX) TAB PO SCH ×2 (18:26→22:25)
[2021-11-21] MEDS: NITROGLYCERIN 0.4 MG SL TABS BTL 25'S SL PRN ×2 (20:24→22:25)
[2021-11-21] MEDS ORDERED: ROSUVASTATIN 20 MG (CRESTOR) TABLET PO SCH (21:00)
[2021-11-21] MEDS ORDERED: LEVOTHYROXINE 150 MCG (LEVOTHROID) TAB PO SCH (21:00)
[2021-11-21] MEDS: DOCUSATE SODIUM 100 MG (COLACE) CAP PO SCH (22:30)
[2021-11-21] MEDS: SENNOSIDES 8.6 MG (SENOKOT) TAB PO SCH (22:30)
[2021-11-22] VITALS: BP 117/47
[2021-11-22] MEDS: CATHETER FLUSH 10 ML SYR IVP SCH ×2 (02:24→05:47)
[2021-11-22 03:56] VITALS: BP 105/55
[2021-11-22 04:54] LABS: BASOPHILS % (AUTO) 0 % (0-10); EOSINOPHILS # (AUTO) 0.1 10^3/uL (0.0-0.3); EOSINOPHILS % (AUTO) 1 % (0-10); HEMATOCRIT 41 % (35-52); HEMOGLOBIN 12.8 g/dL (11.5-16.0); LYMPHOCYTES # (AUTO) 2.5 10^3/uL (1.0-4.0); LYMPHOCYTES % (AUTO) 27 % (12-44); MEAN CORPUSCULAR HEMOGLOBIN 30 pg (25-34); MEAN CORPUSCULAR HGB CONC 31 g/dL (32-36); MEAN CORPUSCULAR VOLUME 95 fL (80-99); MEAN PLATELET VOLUME 10.8 fL (9.0-12.2); MONOCYTES # (AUTO) 0.6 10^3/uL (0.0-1.0); MONOCYTES % (AUTO) 7 % (0-12); NEUTROPHILS % (AUTO) 65 % (42-75); PLATELET COUNT 191 10^3/uL (130-400); WHITE BLOOD COUNT 9.2 10^3/uL (4.3-11.0)
[2021-11-22 05:09] LABS: ALBUMIN 3.8 GM/DL (3.2-4.5); CHLORIDE 106 MMOL/L (98-107); POTASSIUM 4.4 MMOL/L (3.6-5.0); SODIUM 141 MMOL/L (135-145)
[2021-11-22 05:10] LABS: PROTHROMBIN TIME PATIENT 23.2 SEC (12.2-14.7)
[2021-11-22 05:11] LABS: TRIGLYCERIDES 252 MG/DL (<150); VLDL CHOLESTEROL 50 MG/DL (5-40)
[2021-11-22 05:12] LABS: GLUCOSE 116 MG/DL (70-105); TOTAL PROTEIN 7.2 GM/DL (6.4-8.2)
[2021-11-22 05:13] LABS: BILIRUBIN,TOTAL 0.3 MG/DL (0.1-1.0); CARBON DIOXIDE 22 MMOL/L (21-32)
[2021-11-22 05:15] LABS: ALKALINE PHOSPHATASE 88 U/L (40-136); CREATININE SERUM 0.86 MG/DL (0.60-1.30); GFR ESTIMATED 76
[2021-11-22 05:16] LABS: CHOLESTEROL 245 MG/DL (< 200)
[2021-11-22 05:17] LABS: BUN/CREATININE RATIO 12
[2021-11-22 05:18] LABS: ALANINE AMINOTRANSFERASE 19 U/L (0-55); HDL CHOLESTEROL 36 MG/DL (40-60)
[2021-11-22] MEDS: inSUlin ASPART (NovoLOG) 1 UNIT/0.01 ML (CHARGE PER UNIT) SC SCH ×2 (05:48→12:29)
[2021-11-22] MEDS: ALPRAZolam 0.5 MG (XANAX) TAB PO SCH ×2 (05:48→12:29)
[2021-11-22 08:00] VITALS: BP 106/68
--- NOTE | 2021-11-22 08:11 | Consultation-Cardiology ---
HPI-Cardiology Cardiology Consultation: Date of Consultation 11/22/21 Date of Admission Attending Physician [facility] Admitting Physician Admitting Physician: Kirsten Cullen DO Attending Physician: Kirsten Cullen DO Consulting Physician Addis Kearney MD Primary Real Estate Salesperson: Dr. Duggan HPI: Chief Complaint: Chest pain Review of Systems-Cardiology All Other Systems Reviewed Negative Unless Noted: Yes CRN-[id number] Hx Patient Social History 2nd Hand Smoke Exposure: Yes Have you traveled recently?: No Alcohol Use?: No Pt feels they are or have been: No Immunizations Up To Date Tetanus Booster (TDap): Less than 5yrs Date of Pneumonia Vaccine: Jan 09, 2017 Date of Influenza Vaccine: May 06, 2012 Past Medical History PMH As described under Assessment. Family Medical History Family History: Arthritis G8 SISTER Cardiovascular disease 03 FATHER Colon cancer 03 MOTHER Completed stroke 03 MOTHER Hypertension 03 MOTHER G8 BROTHER Myocardial infarction 03 MOTHER Thyroid disease G8 SISTER Allergies and Home Medications Allergies Coded Allergies: methylprednisolone (Verified Allergy, Mild, 11/05/18) Penicillins (Unverified Allergy, Unknown, 11/05/18) atorvastatin (Verified Allergy, Unknown, 11/05/18) isosorbide (Verified Allergy, Unknown, 11/05/18) ketorolac (Verified Allergy, Unknown, ITCHING, 11/05/18) promethazine (Unverified Allergy, Unknown, hallucinations, 11/05/18) venom-honey bee (Unverified Allergy, Unknown, 11/05/18) Uncoded Allergies: TAPE (Allergy, Unknown, 08/16/13) Patient Home Medication List Acetaminophen (Acetaminophen) 500 Mg Tablet, 500-1,000 MG PO Q8H PRN for PAIN- MILD (1-4), (Reported) Entered as Reported by: YARA JUAREZ on 09/04/15 1558 Albuterol Sulfate (Ventolin Hfa) 18 Gm Hfa.aer.ad, 1 PUFF INH Q4H PRN for SHORT NESS OF BREATH, (Reported) Entered as Reported by: KSENIA PIÑA on 08/19/17 0947 Aspirin (Aspirin EC) 81 Mg Tablet.dr, 81 MG PO DAILY Prescribed by: NATALIYA JACKSON JR, MD on 10/07/21 0910 Last Action: Continued Ezetimibe (Ezetimibe) 10 Mg Tablet, 10 MG PO HS Prescribed by: NATALIYA JACKSON JR, MD on 10/07/21 0910 Levothyroxine Sodium (Levothyroxine Sodium) 150 Mcg Tablet, 150 MCG PO HS, (Re ported) Entered as Reported by: YARA JUAREZ on 09/04/15 1524 Last Action: Continued Metoprolol Tartrate (Metoprolol Tartrate) 25 Mg Tablet, 25 MG PO BID Prescribed by: NATALIYA JACKSON JR, MD on 10/07/21 09 Nitroglycerin (Nitroglycerin) 0.4 Mg Tab.subl, 0.4 MG SL UD PRN for CHEST PAIN (ANGINA) Prescribed by: NATALIYA JACKSON JR, MD on 10/07/21 09 Omeprazole (Omeprazole) 40 Mg Capsule.dr, 40 MG PO DAILY Prescribed by: NATALIYA JACKSON JR, MD on 10/07/21909 Povidone (Soothe Hydration) 1.25 % Drops, 1-2 DROPS OU UD PRN for DRY EYES, (Reported) Entered as Reported by: RAAD LANDRY on 09/13/21 1220 Rosuvastatin Calcium (Rosuvastatin Calcium) 20 Mg Tablet, 20 MG PO HS Prescribed by: NATALIYA JACKSON JR, MD on 10/07/21 09 Last Action: Continued Warfarin Sodium (Warfarin Sodium) 5 Mg Tablet, 5 MG PO MARIE,MO,WE,FR @HS, (Reported) Entered as Reported by: YARA JUAREZ on 09/04/15 1542 Last Action: Continued Warfarin Sodium (Warfarin Sodium) 5 Mg Tablet, 7.5 MG PO ,,SA @HS, (Reported) Entered as Reported by: RAAD LANDRY on 01/30/20 1138 Last Action: Held Physical Exam-Cardiology Physical Exam Vital Signs/I&O 11/21/21 11/21/21 11/21/21 11/21/21 21:00 22:00 22:40 23:00 Temp 36.7 Pulse 62 56 65 Resp 13 14 20 B/P (MAP) 103/64 (77) 119/64 (82) 124/61 (82) O2 Delivery Room Air Room Air Room Air 11/21/21 11/22/21 11/22/21 11/22/21 23:54 00:00 00:00 01:00 Pulse 66 62 62 Resp 20 20 B/P (MAP) 124/68 (86) 117/47 (70) Pulse Ox 95 96 O2 Delivery Room Air Room Air 11/22/21 11/22/21 11/22/21 11/22/21 03:56 04:00 07:00 07:55 Temp 35.6 Pulse 57 58 Resp 21 B/P (MAP) 105/55 (72) Pulse Ox 94 96 94 O2 Delivery Nasal Cannula Room Air 11/22/21 00:00 Intake Total 100 ml Balance 100 ml Capillary Refill : Data Review Labs Laboratory Tests 11/21/21 10:50: White Blood Count 8.7, Red Blood Count 4.20, Hemoglobin 12.3, Hematocrit 40, Mean Corpuscular Volume 95, Mean Corpuscular Hemoglobin 29, Mean Corpuscular Hemoglobin Concent 31L, Red Cell Distribution Width 15.1H, Platelet Count 189, Mean Platelet Volume 11.1, Immature Granulocyte % (Auto) 1, Neutrophils (%) (Auto) 70, Lymphocytes (%) (Auto) 23, Monocytes (%) (Auto) 6, Eosinophils (%) (Auto) 1, Basophils (%) (Auto) 0, Neutrophils # (Auto) 6.1, Lymphocytes # (Auto) 2.0, Monocytes # (Auto) 0.5, Eosinophils # (Auto) 0.1, Basophils # (Auto) 0.0, Immature Granulocyte # (Auto) 0.0, Prothrombin Time 21.5H, INR Comment 1.8H, Activated Partial Thromboplast Time 38H, Sodium Level 138, Potassium Level 4.0, Chloride Level 104, Carbon Dioxide Level 22, Anion Gap 12, Blood Urea Nitrogen 9, Creatinine 0.80, Estimat Glomerular Filtration Rate 83, BUN/Creatinine Ratio 11, Glucose Level 210H, Calcium Level 9.1, Corrected Calcium 9.3, Magnesium Level 2.2, Total Bilirubin 0.3, Aspartate Amino Transf (AST/SGOT) 20, Alanine Aminotransferase (ALT/SGPT) 18, Alkaline Phosphatase 89, Myoglobin 30.9, Troponin I < 0.028, Total Protein 7.2, Albumin 3.8, Lipase 50 11/21/21 17:07: Glucometer 105 11/21/21 19:36: Troponin I < 0.028 11/22/21 04:40: White Blood Count 9.2, Red Blood Count 4.34, Hemoglobin 12.8, Hematocrit 41, Mean Corpuscular Volume 95, Mean Corpuscular Hemoglobin 30, Mean Corpuscular Hemoglobin Concent 31L, Red Cell Distribution Width 15.2H, Platelet Count 191, Mean Platelet Volume 10.8, Immature Granulocyte % (Auto) 0, Neutrophils (%) (Auto) 65, Lymphocytes (%) (Auto) 27, Monocytes (%) (Auto) 7, Eosinophils (%) (Auto) 1, Basophils (%) (Auto) 0, Neutrophils # (Auto) 6.0, Lymphocytes # (Auto) 2.5, Monocytes # (Auto) 0.6, Eosinophils # (Auto) 0.1, Basophils # (Auto) 0.0, Immature Granulocyte # (Auto) 0.0, Prothrombin Time 23.2H, INR Comment 2.0H, Sodium Level 141, Potassium Level 4.4, Chloride Level 106, Carbon Dioxide Level 22, Anion Gap 13, Blood Urea Nitrogen 10, Creatinine 0.86, Estimat Glomerular Filtration Rate 76, BUN/Creatinine Ratio 12, Glucose Level 116H, Calcium Level 9.0, Corrected Calcium 9.2, Total Bilirubin 0.3, Aspartate Amino Transf (AST/SGOT) 22, Alanine Aminotransferase (ALT/SGPT) 19, Alkaline Phosphatase 88, Troponin I < 0.028, Total Protein 7.2, Albumin 3.8, Triglycerides Level 252H, Cholesterol Level 245H, LDL Cholesterol Direct 179H, VLDL Cholesterol 50H, HDL Cholesterol 36L Radiology NAME: OTONIEL DUNAWAY [facility] REC#: [id number] PT STATUS: ADM Nan : 1955 PHYSICIAN: VIPIN LEARY MD ADMIT DATE: 11/21/21/[facility] Signed Date of Exam:11/21/21 CHEST 1 VIEW, AP/PA ONLY INDICATION: Chest pain. TECHNIQUE: AP view of the chest is obtained with comparison made to study of 10/05/2021. FINDINGS: There is mild cardiomegaly. Pulmonary vascularity is within normal limits. There is no pneumothorax or consolidation. No pleural fluid is identified. Surgical findings are again noted in the lower cervical region. IMPRESSION: Cardiomegaly without acute abnormality or adverse change. Dictated by: Dictated on workstation # [id number] Dict: 11/21/21 1146 Trans: 11/21/21 1654 [id number] Interpreted by: CATHIE ESTRADA MD Electronically signed by: CATHIE ESTRADA MD 11/21/21 1654 ECG Impression ECG Initial ECG Rhythm: Normal Sinus A/P-Cardiology Assessment/Admission Diagnosis Chest pain - no evidence of ACS CAD - reports h/o PCI - Dr. Duggan is her primary forensic scientist - she is scheduled to have cardiac cath at [facility] in December Aortic stenosis - Echocardiogram of 10-06-[address] Jackson showed LVEF 55-60%. Mild aortic stenosis with trivial regurg. PASP 26 mmHg HTN HLD H/O PE - chronic warfarin tx Morbid obesity Non-compliance with medication regimen Clinical Quality Measures AMI/AHF: ASA po Prior to arrival: ANTONY Allen Nov 22, 2021 08:11
--- NOTE | 2021-11-22 08:22 | Consultation-Cardiology ---
HPI-Cardiology Cardiology Consultation: Date of Consultation 11/22/21 Date of Admission 11/21/21 Attending Physician [facility] Admitting Physician Admitting Physician: Kirsten Cullen DO Attending Physician: Kirsten Cullen DO Consulting Physician NATALIYA ROBERSON JR, MD HPI: Time Seen by a Provider: 08:17 Chief Complaint: REASON FOR CONSULTATION: Chest pain. I had the pleasure of seeing Minnie in the cardiac stepdown unit at [facility] in [place], [place] today. She has a known history of coronary artery disease with 3 previous coronary stents and normally follows with a footwear stitcher at [facility] in [place], [place]. I know her from previous hospitalizations in our facility. She had been here in September and at that time, had recurrent angina. She did not want a stress test or cardiac catheterization. I changed her diltiazem to metoprolol tartrate to see if this would help with her angina. However, she said this medication made her sleepy all the time and after 4 days she stopped the medication. She then saw her regular footwear stitcher and was placed back on diltiazem CD 120 mg daily. She opens the capsule and puts the contents in water and swallows the medication this way. She was not having any significant angina until about the past 4 days when she developed recurrent left-sided chest tightness above her left breast. She was getting very lightheaded. She would put on her nitroglycerin patch and after a while, the chest discomfort would resolve. However, yesterday she was at [facility] to get an INR level and while sitting in the parking lot waiting to go inside, she developed recurrent chest tightness. She was again lightheaded. She then came to the hospital for further evaluation. Last night she had 2 separate episodes of chest discomfort. Both times she got relief with sublingual nitroglycerin but the second episode she also took an alprazolam. She does not usually take this at home. This morning she denies any chest discomfort. She denies dyspnea, paroxysmal nocturnal dyspnea, orthopnea, palpitations, syncope, or ankle edema. Because of the chest discomfort, a cardiology consultation was requested. Certain portions of this document may have been dictated utilizing voice recognition technology. Inherent to this technology, typographical and grammatical errors may exist. As much as I am diligent to identify and correct these mistakes, some errors may remain in the document. Review of Systems-Cardiology Review of Systems Other comments Review of 10 organ systems is as per the history of present illness, otherwise negative. All Other Systems Reviewed Negative Unless Noted: Yes FIV-[id number]-[id number] Hx Patient Social History 2nd Hand Smoke Exposure: Yes Have you traveled recently?: No Alcohol Use?: No Pt feels they are or have been: No Immunizations Up To Date Tetanus Booster (TDap): Less than 5yrs Date of Pneumonia Vaccine: Jan 09, 2017 Date of Influenza Vaccine: May 06, 2012 Past Medical History PMH As described under Assessment. Family Medical History Family History: Arthritis G8 SISTER Cardiovascular disease 03 FATHER Colon cancer 03 MOTHER Completed stroke 03 MOTHER Hypertension 03 MOTHER G8 BROTHER Myocardial infarction 03 MOTHER Thyroid disease G8 SISTER Allergies and Home Medications Allergies Coded Allergies: methylprednisolone (Verified Allergy, Mild, 11/05/18) Penicillins (Unverified Allergy, Unknown, 11/05/18) atorvastatin (Verified Allergy, Unknown, 11/05/18) isosorbide (Verified Allergy, Unknown, 11/05/18) ketorolac (Verified Allergy, Unknown, ITCHING, 11/05/18) promethazine (Unverified Allergy, Unknown, hallucinations, 11/05/18) venom-honey bee (Unverified Allergy, Unknown, 11/05/18) Uncoded Allergies: TAPE (Allergy, Unknown, 08/16/13) Patient Home Medication List Home Medication List Reviewed: Yes Acetaminophen (Acetaminophen) 500 Mg Tablet, 500-1,000 MG PO Q8H PRN for PAIN- MILD (1-4), (Reported) Entered as Reported by: YARA JUAREZ on 09/04/15 1558 Last Action: Reviewed Aspirin (Aspirin EC) 81 Mg Tablet.dr, 81 MG PO DAILY, (Reported) Entered as Reported by: RAAD LANDRY on 11/22/21 1004 Last Action: Reviewed Diltiazem HCl (Diltiazem ER) 120 Mg Capsule.er, 120 MG PO HS, (Reported) Entered as Reported by: RAAD LANDRY on 11/22/21 1004 Last Action: Reviewed Levothyroxine Sodium (Levothyroxine Sodium) 150 Mcg Tablet, 150 MCG PO HS, (Reported) Entered as Reported by: YARA JUAREZ on 09/04/15 1524 Last Action: Reviewed Nitroglycerin (Nitroglycerin) 0.4 Mg Tab.subl, 0.4 MG SL UD PRN for CHEST PAIN, (Reported) Entered as Reported by: RAAD LANDRY on 11/22/21 1004 Last Action: Reviewed Nitroglycerin (Nitro-Dur 0.6 MG/HR) 0.6 Mg/Hour Patch.td24, 0.6 MG TD DAILY PRN for CHEST PAIN (ANGINA), (Reported) Entered as Reported by: RAAD LANDRY on 11/22/21 1004 Last Action: Reviewed Omeprazole (Omeprazole) 40 Mg Capsule.dr, 40 MG PO HS, (Reported) Entered as Reported by: RAAD LANDRY on 11/22/21 1005 Last Action: Reviewed Povidone (Soothe Hydration) 1.25 % Drops, 1-2 DROPS OU UD PRN for DRY EYES, (Reported) Entered as Reported by: RAAD LANDRY on 09/13/21 1220 Last Action: Reviewed Rosuvastatin Calcium (Rosuvastatin Calcium) 20 Mg Tablet, 20 MG PO HS, (Reported) Entered as Reported by: RAAD LANDRY on 11/22/21 1005 Last Action: Reviewed Warfarin Sodium (Warfarin Sodium) 5 Mg Tablet, 5 MG PO WED,FR,SAT @HS, (Reported) Entered as Reported by: YARA JUAREZ on 09/04/15 1542 Last Action: Reviewed Warfarin Sodium (Warfarin Sodium) 5 Mg Tablet, 7.5 MG PO MARIE,MO,TU,TH @HS, (Reported) Entered as Reported by: RAAD LANDRY on 01/30/20 1138 Last Action: Reviewed Discontinued Medications Albuterol Sulfate (Ventolin Hfa) 18 Gm Hfa.aer.ad, 1 PUFF INH Q4H PRN for SHORTNESS OF BREATH, (Reported) Discontinued Reason: No Longer Taking Entered as Reported by: KSENIA PIÑA on 08/19/17 0947 Last Action: Discontinued Ezetimibe (Ezetimibe) 10 Mg Tablet, 10 MG PO HS Discontinued Reason: No Longer Taking Prescribed by: NATALIYA ROBERSON JR, MD on 10/07/21 0910 Last Action: Discontinued Metoprolol Tartrate (Metoprolol Tartrate) 25 Mg Tablet, 25 MG PO BID Discontinued Reason: No Longer Taking Prescribed by: NATALIYA ROBERSON JR, MD on 10/07/21909 Last Action: Discontinued Nitroglycerin (Nitroglycerin) 0.4 Mg Tab.subl, 0.4 MG SL UD PRN for CHEST PAIN (ANGINA) Discontinued Reason: Duplicate Order Prescribed by: NATALIYA ROBERSON JR, MD on 10/07/21909 Last Action: Discontinued Omeprazole (Omeprazole) 40 Mg Capsule.dr, 40 MG PO DAILY Discontinued Reason: Duplicate Order Prescribed by: NATALIYA ROBERSON JR, MD on 10/07/21909 Last Action: Discontinued Rosuvastatin Calcium (Rosuvastatin Calcium) 20 Mg Tablet, 20 MG PO HS Discontinued Reason: Duplicate Order Prescribed by: NATALIYA ROBERSON JR, MD on 10/07/21909 Last Action: Discontinued Exam Vital Signs Vital Signs Date Time Temp Pulse Resp B/P (MAP) Pulse Ox O2 Delivery O2 Flow Rate FiO2 11/22/21 12:00 36.4 65 22 135/66 (89) 95 Nasal Cannula Physical Exam General: Alert. No acute distress. Well nourished and appears stated age. She is morbidly obese. Eye: Extraocular movements are intact. Conjunctivae are clear. There are no xanthelasma. HENT: Normocephalic. Atraumatic. Carotid pulsations 2/2 without bruits. Neck: Jugular venous pressure does not appear elevated. No thyromegaly appreciated. Respiratory: Lungs are clear to auscultation. Respirations are non-labored. Breath sounds are equal. Symmetrical chest wall expansion. Cardiovascular: Normal rate. Regular rhythm. No murmur. No gallop. Point of maximal impulse is not appear displaced. Good pulses equal in all extremities. No edema. Gastrointestinal: Soft. Normal bowel sounds. Skin: Skin turgor is normal. There is no pallor. Musculoskeletal: No kyphosis or scoliosis appreciated. Neurologic: Alert and oriented to person, place, time. Cranial nerves 3-12 appear grossly intact. The patient has good motor tone strength in the upper and lower extremities bilaterally. Psychiatric: Cooperative. Appropriate mood & affect. Labs Laboratory Tests Test 11/21/21 17:07 11/21/21 19:36 11/22/21 04:40 Range/Units Glucometer 105 70-110 MG/DL Troponin I < 0.028 < 0.028 <0.028 NG/ML White Blood Count 9.2 4.3-11.0 10^3/uL Red Blood Count 4.34 3.80-5.11 10^6/uL Hemoglobin 12.8 11.5-16.0 g/dL Hematocrit 41 35-52 % Mean Corpuscular Volume 95 80-99 fL Mean Corpuscular Hemoglobin 30 25-34 pg Mean Corpuscular Hemoglobin Concent 31 L 32-36 g/dL Red Cell Distribution Width 15.2 H 10.0-14.5 % Platelet Count 191 130-400 10^3/uL Mean Platelet Volume 10.8 9.0-12.2 fL Immature Granulocyte % (Auto) 0 % Neutrophils (%) (Auto) 65 42-75 % Lymphocytes (%) (Auto) 27 12-44 % Monocytes (%) (Auto) 7 0-12 % Eosinophils (%) (Auto) 1 0-10 % Basophils (%) (Auto) 0 0-10 % Neutrophils # (Auto) 6.0 1.8-7.8 10^3/uL Lymphocytes # (Auto) 2.5 1.0-4.0 10^3/uL Monocytes # (Auto) 0.6 0.0-1.0 10^3/uL Eosinophils # (Auto) 0.1 0.0-0.3 10^3/uL Basophils # (Auto) 0.0 0.0-0.1 10^3/uL Immature Granulocyte # (Auto) 0.0 0.0-0.1 10^3/uL Prothrombin Time 23.2 H 12.2-14.7 SEC INR Comment 2.0 H 0.8-1.4 Sodium Level 141 135-145 MMOL/L Potassium Level 4.4 3.6-5.0 MMOL/L Chloride Level 106 98-107 MMOL/L Carbon Dioxide Level 22 21-32 MMOL/L Anion Gap 13 5-14 MMOL/L Blood Urea Nitrogen 10 7-18 MG/DL Creatinine 0.86 0.60-1.30 MG/DL Estimat Glomerular Filtration Rate 76 BUN/Creatinine Ratio 12 Glucose Level 116 H 70-105 MG/DL Calcium Level 9.0 8.5-10.1 MG/DL Corrected Calcium 9.2 8.5-10.1 MG/DL Total Bilirubin 0.3 0.1-1.0 MG/DL Aspartate Amino Transf (AST/SGOT) 22 5-34 U/L Alanine Aminotransferase (ALT/SGPT) 19 0-55 U/L Alkaline Phosphatase 88 40-136 U/L Total Protein 7.2 6.4-8.2 GM/DL Albumin 3.8 3.2-4.5 GM/DL Triglycerides Level 252 H <150 MG/DL Cholesterol Level 245 H < 200 MG/DL LDL Cholesterol Direct 179 H 1-129 MG/DL VLDL Cholesterol 50 H 5-40 MG/DL HDL Cholesterol 36 L 40-60 MG/DL ECG Impression ECG Comment Electrocardiogram from the emergency room shows sinus rhythm with low voltage in the precordial leads. Diagnosis/Problems Diagnosis/Problems (1) Coronary artery disease with unstable angina pectoris Assessment & Plan: I suspect she is having accelerated angina. Unfortunately, she has been intolerant to different antianginal medications due to side effects. I recommend we increase her dose of diltiazem CD to 120 mg twice daily . I told her if she has ongoing angina, she should take sublingual nitroglycerin for relief as opposed to putting on a nitroglycerin patch as needed. She should continue on aspirin and statin medication. If the diltiazem does not control her symptoms, one could consider adding amlodipine. She did not tolerate beta-leo because of fatigue. She has a follow-up appointment with her regular footwear stitcher at [facility] in [place], [place] in the near future. I did also offer her to have her undergo a cardiac catheterization this morning but she would like to see if the medications help. (2) Gastroesophageal reflux disease without esophagitis Assessment & Plan: Unclear whether or not this condition could be causing some of her chest pain. I recommend she continue on proton pump inhibitor. (3) Aortic stenosis Assessment & Plan: Her previous echocardiogram from September showed mild aortic stenosis. This should not be causing symptoms but will need to be followed by her regular footwear stitcher. (4) Primary hypertension Assessment & Plan: As above, I will change her diltiazem CD to 120 mg twice daily. She will need to watch her blood pressure closely at home to make sure we do not inadvertently cause iatrogenic hypotension. (5) Mixed hyperlipidemia Assessment & Plan: She claims that she has been taking her statin medication. I previously recommended she start ezetimibe which it appears she never filled. I recommend we maximize the dose of rosuvastatin. She would need a follow-up lipid panel and comprehensive metabolic panel 6 weeks later. (6) History of pulmonary embolism Assessment & Plan: She has been taking warfarin to prevent recurrent pulmonary emboli. (7) Difficulty swallowing pills Assessment & Plan: Her difficulty swallowing pills makes managing her medical conditions somewhat difficult. (8) Morbid obesity Assessment & Plan: She needs to work on weight loss. She has been counseled in this regard. NATALIYA ROBERSON JR, MD Nov 22, 2021 08:22
--- NOTE | 2021-11-22 08:51 | Short Stay Summary-Hospitalist ---
History of Present Illness HPI/Chief Complaint CC: Chest pain HPI: This is a 65 yr old female with known CAD. She doctors in [place] with cardiology. She presented for chest pain. Troponins were all negative. Dr. Jackson evaluated her and adjusted medications. She will go home. Source: patient Exam Limitations: no limitations Date Seen 11/22/21 Time Seen by a Provider: 09:00 Attending Physician [place] PCP Admitting Physician: Kirsten Cullen DO Attending Physician: Kirsten Cullen DO Referring Physician Date of Admission Nov 21, 2021 at 14:22 Home Medications & Allergies Home Medications Reviewed patient Home Medication Reconciliation performed by pharmacy medication reconciliations certified master safe technician and/or nursing. Patients Allergies have been reviewed. Allergies Allergies Coded Allergies methylprednisolone (Verified Allergy, Mild, 11/05/18) Penicillins (Unverified Allergy, Unknown, 11/05/18) atorvastatin (Verified Allergy, Unknown, 11/05/18) isosorbide (Verified Allergy, Unknown, 11/05/18) ketorolac (Verified Allergy, Unknown, ITCHING, 11/05/18) promethazine (Unverified Allergy, Unknown, hallucinations, 11/05/18) venom-honey bee (Unverified Allergy, Unknown, 11/05/18) Uncoded Allergies TAPE ( Allergy, Unknown, 08/16/13) Past Nfyugli-Kmjsdv-Cftkxt Hx Patient Social History Marrital Status: Employed/Student: retired Tobacco Use?: No Smoking Status: Former Smoker Use of E-Cig and/or Vaping dev: No Substance use?: No Alcohol Use?: No Pt feels they are or have been: No Immunizations Up To Date Date of Influenza Vaccine: May 06, 2012 First/Initial COVID19 Vaccinat: DECLINED Second COVID19 Vaccination Lm: n/a Tetanus Booster (TDap): More Than 5 Years Hepatitis B: Yes PED Vaccines UTD: Yes Date of Pneumonia Vaccine: Jan 09, 2017 Seasonal Allergies Seasonal Allergies: No Current Status Advance Directives: No Communicates: Verbally Primary Language: Welsh Preferred Spoken Language: Welsh Is interpretation needed?: No Implanted or Applied Medical D: CPAP, Stents Past Medical History Surgeries: Appendectomy, Cardiac, Coronary Stent, Gallbladder, Hysterectomy, Orthopedic, Thyroidectomy Asthma, Pulmonary Embolism, Sleep Apnea Currently Using CPAP: No Currently Using BIPAP: No Angina, Coronary Artery Disease, Deep Vein Thrombosis, High Cholesterol, Hypertension, Peripheral Vascular, Syncope Headaches /Migraines, Neuropathy 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 Sexually Transmitted Disease: No HIV/AIDS: No Bladder Infection, Kidney Stones Gastroesophageal Reflux, Chronic Constipation, Gall Bladder Disease Degenerate Disk Disease, Arthritis, Back Injury, Chronic Back Pain, Spasms Hypothyroidsim Loss of Vision: Bilateral Hearing Impairment: Denies Colon Depression Blood Disorders: Yes (BLOOD CLOTS-DVT/P.E.'S) Adverse Reaction/Blood Tranf: No Family Medical History Arthritis G8 SISTER Cardiovascular disease 03 FATHER Colon cancer 03 MOTHER Completed stroke 03 MOTHER Hypertension 03 MOTHER G8 BROTHER Myocardial infarction 03 MOTHER Thyroid disease G8 SISTER Review of Systems Constitutional: see HPI Cardiovascular: chest pain Physical Exam Physical Exam Vital Signs Vital Signs - First Documented 11/21/21 10:38 Temp 37.0 Pulse 66 Resp 18 B/P (MAP) 189/105 (133) Pulse Ox 97 O2 Delivery Room Air Capillary Refill : Height, Weight, BMI Height: 5'2.00" Weight: 297lbs. 8.0oz. 134.828517hw; 54.34 BMI Method:Stated General Appearance: Chronically ill, Mild Distress, Obese HEENT: PERRL/EOMI, Pharynx Normal, Moist Mucous Membranes Neck: Full Range of Motion, Normal Inspection, Non Tender, Supple Respiratory: No Chest Non Tender; Lungs Clear, Normal Breath Sounds, No Accessory Muscle Use, No Respiratory Distress Cardiovascular: Regular Rate, Rhythm, No Edema, Normal Peripheral Pulses Gastrointestinal: Normal Bowel Sounds, Non Tender, Soft Extremity: Normal Capillary Refill, Normal Inspection, No Pedal Edema Neurologic/Psychiatric: Alert, Oriented x3, No Motor/Sensory Deficits Skin: Normal Color, Warm/Dry Results Results/Procedures Labs Laboratory Tests 11/21/21 10:50 11/22/21 04:40 Patient resulted labs reviewed. Short Stay Diagnosis Discharge Diagnosis-Short Stay Admission Diagnosis Assessment: Chest pain Chronic angina HTN Final Discharge Diagnosis Assessment: Chest pain Chronic angina HTN Conclusion Plan DC home Diagnosis/Problems Diagnosis/Problems (1) Unstable angina Status: Acute (2) Atypical chest pain Status: Acute Clinical Quality Measures AMI/AHF: ASA po Prior to arrival: KIRSTEN Acevedo DO Nov 22, 2021 08:51
[2021-11-22] MEDS ORDERED: dilTIAZem120 MG (CARDIZEM CD) CAP PO SCH (09:00)
[2021-11-22] MEDS ORDERED: ASPIRIN E.C. 81 MG (ECOTRIN) TAB PO SCH ×3 (09:00)
[2021-11-22] MEDS ORDERED: PANTOPRAZOLE 40 MG (PROTONIX) TAB PO SCH (09:00)
[2021-11-22] MEDS: DOCUSATE SODIUM 100 MG (COLACE) CAP PO SCH (09:54)
[2021-11-22] MEDS: SENNOSIDES 8.6 MG (SENOKOT) TAB PO SCH (09:54)
[2021-11-22] MEDS ORDERED: DILT120C85 PO (10:04)
[2021-11-22] MEDS ORDERED: NITR0.4T39 SL (10:04)
[2021-11-22] MEDS ORDERED: NITR1PAT84 TD (10:04)
[2021-11-22] MEDS ORDERED: ASPI-1238 PO (10:04)
[2021-11-22] MEDS ORDERED: OMEP40CA6 PO (10:05)
[2021-11-22] MEDS ORDERED: ROSU20TA32 PO ×2 (10:05→12:19)
[2021-11-22 12:00] VITALS: BP 135/66
[2021-11-22] MEDS ORDERED: EZET10TA49 PO (12:19)
[2021-11-22] MEDS ORDERED: DILT-27 PO (12:19)
[2021-11-22] MEDS ORDERED: eZETimibe 10 MG (ZETIA) TABLET PO SCH (21:00)
[2021-11-22] MEDS ORDERED: ROSUVASTATIN 20 MG (CRESTOR) TABLET PO SCH (21:00)
== END 2021-11-22 13:57 | disposition home or self-care (01) ==
LOC: EDUNIT# 10:29 → ER 10:30 → UNDOADMOB 14:22 → CSD 14:22 → UNDODISOB 11-22 15:01
PROVIDERS: ADMIT Internal Medicine; ATTEND Internal Medicine
DX: I25.110 Atherosclerotic heart disease of native coronary artery with unstable angina pectoris (principal)
CPT/HCPCS: 71045; 80053 ×2; 80061; 82947; 83690; 83735; 83874; 84484 ×2; 85025 ×2; 85610 ×2; 85730; 93005 ×2; 93041; 94760; 99284; G0378; 36415

== ENCOUNTER 2022-02-01 18:02 | Emergency (ER) | payer MEDICARE, MEDICAID ==
[~2022-02-01] VITALS: Ht 157.5 cm; Wt 133.4 kg
[~2022-02-01 18:02] MED LIST changes: +DILT-27 PO; +DILT120C85 PO; +NITR0.4T39 SL; +NITR1PAT84 TD
[2022-02-01 18:26] LABS: BASOPHILS % (AUTO) 0 % (0-10); EOSINOPHILS # (AUTO) 0.1 10^3/uL (0.0-0.3); EOSINOPHILS % (AUTO) 1 % (0-10); HEMATOCRIT 42 % (35-52); HEMOGLOBIN 13.8 g/dL (11.5-16.0); LYMPHOCYTES # (AUTO) 2.4 10^3/uL (1.0-4.0); LYMPHOCYTES % (AUTO) 23 % (12-44); MEAN CORPUSCULAR HEMOGLOBIN 30 pg (25-34); MEAN CORPUSCULAR HGB CONC 33 g/dL (32-36); MEAN CORPUSCULAR VOLUME 91 fL (80-99); MEAN PLATELET VOLUME 10.9 fL (9.0-12.2); MONOCYTES # (AUTO) 0.7 10^3/uL (0.0-1.0); MONOCYTES % (AUTO) 7 % (0-12); NEUTROPHILS # (AUTO) 7.2 10^3/uL (1.8-7.8); NEUTROPHILS % (AUTO) 69 % (42-75); PLATELET COUNT 250 10^3/uL (130-400); WHITE BLOOD COUNT 10.4 10^3/uL (4.3-11.0)
--- NOTE | 2022-02-01 18:29 | ED Chest Pain ---
General Chief Complaint: Chest Pain Stated Complaint: CHEST PAIN Source: patient, other (urgent care RN) Exam Limitations: no limitations History of Present Illness Date Seen by Provider: Feb 01, 2022 Time Seen by Provider: 18:03 Initial Comments 66-year-old female with past medical history of CAD with chronic angina and daily chest pain, previous PE on warfarin, hyperlipidemia coming in due to chest pain as a referral from urgent care. She went to the urgent care to discuss the antibiotic she was on for her UTI. Reportedly, the culture showed that it is sensitive to the antibiotic she is on, so they did not want to change it. While she was there she brought up her daily chest pain that she was currently having. They referred her to the ER. She has a nitro patch that she wears daily and she took an extra oral nitro which did help. This all occurred about an hour prior to arrival. She says she is down to a pain level where she lives more daily now. She is otherwise denying any shortness of breath, abdominal pain, nausea, vomiting, diarrhea, fever, chills, weakness, numbness, or any other concerns. She has been taking her medications as prescribed including her warfarin. Allergies and Home Medications Allergies Coded Allergies: methylprednisolone (Verified Allergy, Mild, 11/05/18) Penicillins (Unverified Allergy, Unknown, 11/05/18) atorvastatin (Verified Allergy, Unknown, 11/05/18) isosorbide (Verified Allergy, Unknown, 11/05/18) ketorolac (Verified Allergy, Unknown, ITCHING, 11/05/18) promethazine (Unverified Allergy, Unknown, hallucinations, 11/05/18) venom-honey bee (Unverified Allergy, Unknown, 11/05/18) Uncoded Allergies: TAPE (Allergy, Unknown, 08/16/13) Patient Home Medication List Home Medication List Reviewed: Yes Acetaminophen (Acetaminophen) 500 Mg Tablet, 500-1,000 MG PO Q8H PRN for PAIN- MILD (1-4), (Reported) Entered as Reported by: YARA JUAREZ on 09/04/15 1558 Aspirin (Aspirin EC) 81 Mg Tablet.dr, 81 MG PO DAILY, (Reported) Entered as Reported by: RAAD LANDRY on 11/22/21 1004 Diltiazem HCl (Diltiazem 24Hr ER) 120 Mg Cap.er.24h, 120 MG PO BID Prescribed by: NATALIYA ROBERSON JR, MD on 11/22/21 1219 Ezetimibe (Ezetimibe) 10 Mg Tablet, 10 MG PO HS Prescribed by: NATALIYA ROBERSON JR, MD on 11/22/21 1219 Levothyroxine Sodium (Levothyroxine Sodium) 150 Mcg Tablet, 150 MCG PO HS, (Reported) Entered as Reported by: YARA JUAREZ on 09/04/15 1524 Nitroglycerin (Nitroglycerin) 0.4 Mg Tab.subl, 0.4 MG SL UD PRN for CHEST PAIN, (Reported) Entered as Reported by: RAAD LANDRY on 11/22/21 1004 Nitroglycerin (Nitro-Dur 0.6 MG/HR) 0.6 Mg/Hour Patch.td24, 0.6 MG TD DAILY PRN for CHEST PAIN (ANGINA), (Reported) Entered as Reported by: RAAD LANDRY on 11/22/21 1004 Omeprazole (Omeprazole) 40 Mg Capsule.dr, 40 MG PO HS, (Reported) Entered as Reported by: RAAD LANDRY on 11/22/21 1005 Povidone (Soothe Hydration) 1.25 % Drops, 1-2 DROPS OU UD PRN for DRY EYES, (Reported) Entered as Reported by: RAAD LANDRY on 09/13/21 1220 Rosuvastatin Calcium (Rosuvastatin Calcium) 20 Mg Tablet, 40 MG PO HS Prescribed by: NATALIYA ROBERSON JR, MD on 11/22/21 1219 Sulfamethoxazole/Trimethoprim (Bactrim Ds Tablet) 1 Each Tablet, 1 EACH PO BID Prescribed by: ANH GROVER on 02/01/22 1841 Warfarin Sodium (Warfarin Sodium) 5 Mg Tablet, 5 MG PO WED,FR,SAT @HS, (Reported) Entered as Reported by: YARA JUAREZ on 09/04/15 1542 Warfarin Sodium (Warfarin Sodium) 5 Mg Tablet, 7.5 MG PO MARIE,MO,TU,TH @HS, (Reported) Entered as Reported by: RAAD LANDRY on 01/30/20 1138 Review of Systems Review of Systems Constitutional: No fever EENTM: No Blurred Vision Respiratory: Denies Cough Cardiovascular: Chest Pain Gastrointestinal: No Symptoms Reported Genitourinary: No Symptoms Reported Musculoskeletal: no symptoms reported Skin: no symptoms reported Psychiatric/Neurological: No Symptoms Reported Endocrine: No Symptoms Reported Hematologic/Lymphatic: No Symptoms Reported All Other Systems Reviewed Negative Unless Noted: Yes Past Axsvcqf-Lommzg-Xqyuet Hx Patient Social History Tobacco Use?: No Smoking Status: Never a Smoker Smokeless Tobacco Frequency: Never a User Use of E-Cig and/or Vaping dev: No Use of E-Cig and/or Vaping Martin: Never a User Substance use?: No Alcohol Use?: No Pt feels they are or have been: No Immunizations Up To Date Tetanus Booster (TDap): Less than 5yrs PED Vaccines UTD: Yes First/Initial COVID19 Vaccinat: DECLINED Second COVID19 Vaccination Lm: n/a Third COVID19 Vaccination Date: n/a Seasonal Allergies Seasonal Allergies: No Past Medical History Surgery/Hospitalization HX: SURGERY HX API, GALLBLADDER, HYSTERECTOMY, CARDIAC STENTS, COLON CANCER Surgeries: Yes Appendectomy, Cardiac, Coronary Stent, Gallbladder, Hysterectomy, Orthopedic, Thyroidectomy Respiratory: Yes (HAS CPAP--DOES NOT USE ON REGULAR BASIS; P.E. X2) Asthma, Pulmonary Embolism, Sleep Apnea Currently Using CPAP: No Currently Using BIPAP: No Cardiac: Yes (P.E. 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 Sexually Transmitted Disease: No HIV/AIDS: No Genitourinary: Yes Bladder Infection, Kidney Stones Gastrointestinal: Yes (S/P GENI) Gastroesophageal Reflux, Chronic Constipation, Gall Bladder Disease Musculoskeletal: Yes Degenerate Disk Disease, Arthritis, Back Injury, Chronic Back Pain, Spasms Endocrine: Yes (MORBID OBESITY; THYROIDECTOMY) Hypothyroidsim HEENT: Yes Loss of Vision: Bilateral Hearing Impairment: Denies Cancer: No Colon Psychosocial: No Depression Integumentary: No Blood Disorders: Yes (BLOOD CLOTS-DVT/P.E.'S) Adverse Reaction/Blood Tranf: No Family Medical History Arthritis G8 SISTER Cardiovascular disease 03 FATHER Colon cancer 03 MOTHER Completed stroke 03 MOTHER Hypertension 03 MOTHER G8 BROTHER Myocardial infarction 03 MOTHER Thyroid disease G8 SISTER Physical Exam Vital Signs Vital Signs - First Documented 02/01/22 18:03 Temp 37.0 Pulse 83 Resp 17 B/P (MAP) 120/75 (90) Pulse Ox 96 O2 Delivery Room Air Capillary Refill : Less Than 3 Seconds Height, Weight, BMI Height: 5'2.00" Weight: 297lbs. 8.0oz. 134.832205gp; 54.34 BMI Method:Stated General Appearance: No Apparent Distress, WD/WN HEENT: PERRL/EOMI, Normal ENT Inspection, Pharynx Normal Neck: Full Range of Motion, Normal Inspection, Non Tender, Supple Respiratory: Chest Non Tender, Lungs Clear, Normal Breath Sounds, No Accessory Muscle Use, No Respiratory Distress Cardiovascular: Regular Rate, Rhythm, No Edema, Normal Peripheral Pulses Gastrointestinal: Normal Bowel Sounds, Non Tender, Soft; No Guarding Extremity: Normal Capillary Refill, Normal Inspection, Normal Range of Motion, Non Tender, No Calf Tenderness, No Pedal Edema Neurologic/Psychiatric: Alert, No Motor/Sensory Deficits, Normal Mood/Affect Skin: Normal Color, Warm/Dry Lymphatic: No Adenopathy Progress/Results/Core Measures Results/Orders Lab Results Laboratory Tests Test 02/01/22 18:11 02/01/22 18:17 02/01/22 19:29 Range/Units White Blood Count 10.4 4.3-11.0 10^3/uL Red Blood Count 4.64 3.80-5.11 10^6/uL Hemoglobin 13.8 11.5-16.0 g/dL Hematocrit 42 35-52 % Mean Corpuscular Volume 91 80-99 fL Mean Corpuscular Hemoglobin 30 25-34 pg Mean Corpuscular Hemoglobin Concent 33 32-36 g/dL Red Cell Distribution Width 14.8 H 10.0-14.5 % Platelet Count 250 130-400 10^3/uL Mean Platelet Volume 10.9 9.0-12.2 fL Immature Granulocyte % (Auto) 0 % Neutrophils (%) (Auto) 69 42-75 % Lymphocytes (%) (Auto) 23 12-44 % Monocytes (%) (Auto) 7 0-12 % Eosinophils (%) (Auto) 1 0-10 % Basophils (%) (Auto) 0 0-10 % Neutrophils # (Auto) 7.2 1.8-7.8 10^3/uL Lymphocytes # (Auto) 2.4 1.0-4.0 10^3/uL Monocytes # (Auto) 0.7 0.0-1.0 10^3/uL Eosinophils # (Auto) 0.1 0.0-0.3 10^3/uL Basophils # (Auto) 0.0 0.0-0.1 10^3/uL Immature Granulocyte # (Auto) 0.0 0.0-0.1 10^3/uL Prothrombin Time 14.2 12.2-14.7 SEC INR Comment 1.1 0.8-1.4 Activated Partial Thromboplast Time 27 24-35 SEC Sodium Level 137 135-145 MMOL/L Potassium Level 3.7 3.6-5.0 MMOL/L Chloride Level 97 L 98-107 MMOL/L Carbon Dioxide Level 26 21-32 MMOL/L Anion Gap 14 5-14 MMOL/L Blood Urea Nitrogen 9 7-18 MG/DL Creatinine 0.74 0.60-1.30 MG/DL Estimat Glomerular Filtration Rate 90 BUN/Creatinine Ratio 12 Glucose Level 144 H 70-105 MG/DL Calcium Level 9.1 8.5-10.1 MG/DL Corrected Calcium 8.8 8.5-10.1 MG/DL Magnesium Level 2.1 1.6-2.4 MG/DL Total Bilirubin 0.4 0.1-1.0 MG/DL Aspartate Amino Transf (AST/SGOT) 19 5-34 U/L Alanine Aminotransferase (ALT/SGPT) 16 0-55 U/L Alkaline Phosphatase 111 40-136 U/L Myoglobin 30.6 <58.0 NG/ML Troponin I < 0.30 <0.30 NG/ML Pro-B-Type Natriuretic Peptide 26.3 <125.0 PG/ML Total Protein 8.1 6.4-8.2 GM/DL Albumin 4.4 3.2-4.5 GM/DL Lipase 47 8-78 U/L Urine Color YELLOW Urine Clarity CLOUDY Urine pH 6.0 5-9 Urine Specific [place] <=1.005 1.016-1.022 Urine Protein NEGATIVE NEGATIVE Urine Glucose (UA) NEGATIVE NEGATIVE Urine Ketones NEGATIVE NEGATIVE Urine Nitrite NEGATIVE NEGATIVE Urine Bilirubin NEGATIVE NEGATIVE Urine Urobilinogen 0.2 < = 1.0 MG/DL Urine Leukocyte Esterase 3+ H NEGATIVE Urine RBC (Auto) 1+ H NEGATIVE Urine RBC NONE /HPF Urine WBC TNTC H /HPF Urine Crystals NONE /LPF Urine Bacteria LARGE H /HPF Urine Casts NONE /LPF Urine Mucus NEGATIVE /LPF Urine Culture Indicated YES My Orders Orders - ANH GROVER MD Cbc With Automated Diff (02/01/22 18:22) Magnesium (02/01/22 18:22) Chest 1 View Ap/Pa Only (02/01/22 18:22) Ekg Tracing (02/01/22 18:22) Comprehensive Metabolic Panel (02/01/22 18:22) Myoglobin Serum (02/01/22 18:22) Protime With Inr (02/01/22 18:22) Partial Thromboplastin Time (02/01/22 18:22) O2 (02/01/22 18:22) Monitor-Rhythm Ecg Trace Only (02/01/22 18:22) Aspirin Chewable Tablet (Baby Aspirin Ch (02/01/22 18:30) Ed Iv/Invasive Line Start (02/01/22 18:22) Lipase (02/01/22 18:22) Troponin I Fs (02/01/22 18:22) Probnp Fs (02/01/22 18:22) Lidocaine 2% Viscous 15 Ml (Xylocaine Vi (02/01/22 18:30) Antacid Suspension (Mylanta Suspension (02/01/22 18:30) Pantoprazole Injection (Protonix Injecti (02/01/22 18:30) Ua Culture If Indicated (02/01/22 18:33) Urine Culture (02/01/22 18:17) Troponin I Fs (02/01/22 19:30) Medications Given in ED Current Medications Medications Dose Ordered Sig/Marcio Route Start Time Stop Time Status Last Admin Dose Admin Al Hydrox/Mg Hydrox/Simethicone 30 ml ONCE ONCE PO 02/01/22 18:30 02/01/22 18:31 DC 02/01/22 18:32 30 ML Aspirin 324 mg ONCE ONCE PO 02/01/22 18:30 02/01/22 18:31 DC 02/01/22 18:27 324 MG Lidocaine HCl 15 ml ONCE ONCE PO 02/01/22 18:30 02/01/22 18:31 DC 02/01/22 18:32 15 ML Pantoprazole 40 mg ONCE ONCE IV 02/01/22 18:30 02/01/22 18:31 DC 02/01/22 18:32 40 MG Vital Signs/I&O 02/01/22 02/01/22 18:03 18:03 Temp 37.0 Pulse 83 Resp 17 B/P (MAP) 120/75 (90) Pulse Ox 96 O2 Delivery Room Air Room Air Progress Progress Note : Progress Note 66-year-old female with above history coming in due to chest pain. ABCs were intact and vitals were stable on presentation. Physical exam with no acute abnormalities. EKG with no acute ischemic changes. Portable chest x-ray obtained and also shows no acute abnormalities. An IV was placed and basic labs were obtained including cardiac biomarkers. Troponin was negative and repeat tr oponin was also negative. Her pain was completely gone shortly after arrival here. She is not tachycardic, not hypoxic, not short of breath, and overall I think very low likelihood that she would have a PE at this time, especially given the pain is gone. I will have her follow-up with her representative personal service. Initial ECG Impression Date: Feb 01, 2022 Initial ECG Impression Time: 18:12 Initial ECG Rate: 78 Initial ECG Rhythm: Normal Sinus Comment Narrow QRS, normal axis, no significant ST changes or T wave abnormalities Diagnostic Imaging Diagonstic Imaging: Xray (chest) Comments NAME: OTONIEL DUNAWAY [facility] REC#: [id number] PT STATUS: REG ER : 1955 PHYSICIAN: ANH GROVER MD ADMIT DATE: 02/01/22/ER FS Draft Date of Exam:02/01/22 CHEST 1 VIEW AP/PA ONLY EXAMINATION: Chest 1 view. HISTORY: Chest pain. COMPARISON: 11/21/2021. FINDINGS: The lung volumes are normal. No focal consolidation is seen. No large pleural effusion or pneumothorax is seen. The cardiomediastinal silhouette is normal in size and contour. No acute osseous abnormality is seen. IMPRESSION: No acute pleuroparenchymal process. Dictated on workstation # [id number] Dict: 02/01/[id number] Trans: 02/01/22 184 [facility] [id number] Interpreted by: RICARDO DALY DO Electronically signed by: Departure Impression Primary Impression: Chest pain Qualified Codes: R07.82 - Intercostal pain Additional Impression: UTI (urinary tract infection) Qualified Codes: N30.00 - Acute cystitis without hematuria Disposition: HOME, SELF-CARE Condition: Stable Departure-Patient Inst. Decision time for Depature: 20:00 Referrals: NATALIYA WALLACE (PCP) Primary Care Physician [facility] (Family) Primary Care Physician Patient Instructions: Chest Pain, Adult ED Add. Discharge Instructions: Please follow-up with your representative personal service in [place]. If you have any emergent conditions then please come back to the ER. Scripts Sulfamethoxazole/Trimethoprim (Bactrim Ds Tablet) 1 Each Tablet 1 EACH PO BID for 5 Days, #10 TAB Prov: ANH GROVER MD 02/01/22 Work/School Note: Work Release Form Date Seen in the Emergency Department: S 2021 Return to Work: Feb 03, 2022 Restrictions: No Restrictions ANH GROVER MD Feb 01, 2022 18:29
[2022-02-01] MEDS ORDERED: LIDOCAINE 2% VISCOUS 15 ML UDC PO ONE (18:30)
[2022-02-01] MEDS ORDERED: PANTOPRAZOLE 40 MG (PROTONIX) VIAL IV ONE (18:30)
[2022-02-01] MEDS ORDERED: warFARin 7.5 MG (COUMADIN) TAB PO ONE (18:30)
[2022-02-01] MEDS ORDERED: ANTACID SUSP 30 ML UDC (MYLANTA) PO ONE (18:30)
[2022-02-01] MEDS ORDERED: ASPIRIN 81 MG CHEW (CHILDREN'S ASA) PO ONE (18:30)
[2022-02-01 18:34] LABS: INR 1.1 (0.8-1.4); PROTHROMBIN TIME PATIENT 14.2 SEC (12.2-14.7)
[2022-02-01 18:36] LABS: BACTERIA,URINE LARGE /HPF; BILIRUBIN,URINE NEGATIVE (NEGATIVE); CLARITY,URINE CLOUDY; COLOR,URINE YELLOW; GLUCOSE, URINE (UA) NEGATIVE (NEGATIVE); KETONES,URINE NEGATIVE (NEGATIVE); LEUKOCYTE ESTERASE ,URINE 3+ (NEGATIVE); NITRITE,URINE NEGATIVE (NEGATIVE); PROTEIN,URINE NEGATIVE (NEGATIVE); WBC,URINE TNTC /HPF
[2022-02-01] MEDS ORDERED: SULF1TAB38 PO (18:41)
--- NOTE | 2022-02-01 18:41 | Diagnostic Imaging Report ---
EXAMINATION: Chest 1 view. HISTORY: Chest pain. COMPARISON: 11/21/2021. FINDINGS: The lung volumes are normal. No focal consolidation is seen. No large pleural effusion or pneumothorax is seen. The cardiomediastinal silhouette is normal in size and contour. No acute osseous abnormality is seen. IMPRESSION: No acute pleuroparenchymal process. Dictated by: Dictated on workstation # [id number]
[2022-02-01 18:45] LABS: ALBUMIN 4.4 GM/DL (3.2-4.5); BILIRUBIN,TOTAL 0.4 MG/DL (0.1-1.0); CALCIUM 9.1 MG/DL (8.5-10.1); CREATININE SERUM 0.74 MG/DL (0.60-1.30); MAGNESIUM 2.1 MG/DL (1.6-2.4); POTASSIUM 3.7 MMOL/L (3.6-5.0); TOTAL PROTEIN 8.1 GM/DL (6.4-8.2)
[2022-02-01 19:53] VITALS: BP 120/59
== END 2022-02-01 19:56 | disposition home or self-care (01) ==
LOC: EDUNIT# 18:02 → ER FS 18:04
DX: R07.9 Chest pain, unspecified (principal); N39.0 Urinary tract infection, site not specified; E66.01 Morbid (severe) obesity due to excess calories; Z68.43 Body mass index [BMI] 50.0-59.9, adult; Z86.711 Personal history of pulmonary embolism; Z79.01 Long term (current) use of anticoagulants; Z88.0 Allergy status to penicillin; Z28.310 Unvaccinated for COVID-19
CPT/HCPCS: 36415; 71045; 80053; 81000; 83690; 83735; 83874; 83880; 84484; 85025; 85610; 85730; 87077; 87088; 93005; 93041

== ENCOUNTER 2022-02-09 20:05 | Emergency (ER) | payer MEDICARE, MEDICAID ==
[~2022-02-09] VITALS: Ht 157.4 cm; Wt 133.4 kg
[2022-02-09] MEDS ORDERED: ONDANSETRON 4 MG/2 ML (SDV) Z0FRAN IVP ONE (20:30)
[2022-02-09] MEDS ORDERED: fentaNYL INJ 100 MCG/2 ML AMP IVP PRN (20:30)
[2022-02-09] MEDS ORDERED: KETOROLAC 30 MG/ML VIAL IVP ONE (20:30)
[2022-02-09 20:31] LABS: BASOPHILS % (AUTO) 0 % (0-10); EOSINOPHILS # (AUTO) 0.1 10^3/uL (0.0-0.3); EOSINOPHILS % (AUTO) 1 % (0-10); HEMATOCRIT 40 % (35-52); HEMOGLOBIN 12.8 g/dL (11.5-16.0); LYMPHOCYTES # (AUTO) 2.7 10^3/uL (1.0-4.0); LYMPHOCYTES % (AUTO) 30 % (12-44); MEAN CORPUSCULAR HEMOGLOBIN 30 pg (25-34); MEAN CORPUSCULAR HGB CONC 32 g/dL (32-36); MEAN CORPUSCULAR VOLUME 93 fL (80-99); MEAN PLATELET VOLUME 10.9 fL (9.0-12.2); MONOCYTES # (AUTO) 0.8 10^3/uL (0.0-1.0); MONOCYTES % (AUTO) 9 % (0-12); NEUTROPHILS # (AUTO) 5.4 10^3/uL (1.8-7.8); NEUTROPHILS % (AUTO) 60 % (42-75); PLATELET COUNT 208 10^3/uL (130-400)
[2022-02-09 20:39] LABS: ALANINE AMINOTRANSFERASE 30 U/L (0-55); ALBUMIN 4.2 GM/DL (3.2-4.5); ALKALINE PHOSPHATASE 107 U/L (40-136); BILIRUBIN,TOTAL 0.2 MG/DL (0.1-1.0); BUN/CREATININE RATIO 14; CALCIUM 9.1 MG/DL (8.5-10.1); CARBON DIOXIDE 28 MMOL/L (21-32); CHLORIDE 100 MMOL/L (98-107); GFR ESTIMATED 82; GLUCOSE 103 MG/DL (70-105); SODIUM 139 MMOL/L (135-145); TOTAL PROTEIN 7.7 GM/DL (6.4-8.2)
--- NOTE | 2022-02-09 20:42 | Diagnostic Imaging Report ---
EXAM: Chest 1 view AP/PA only. INDICATION: Chest pain. COMPARISON: 02/01/2022. FINDINGS: Examination mildly limited by rotation. Stable cardiomegaly. Mild pulmonary vascular congestion with increasing interstitial prominence. No pleural effusion or pneumothorax. Elevation of left hemidiaphragm. No acute osseous finding. IMPRESSION: Cardiomegaly with increasing pulmonary vascular congestion. Increasing interstitial prominence could be due to interstitial edema versus infection. Dictated by: Dictated on workstation # [id number]
--- NOTE | 2022-02-09 23:17 | ED Cardiac General ---
History of Present Illness General Chief Complaint: Chest Pain Nursing Triage Note: Patient presents to ED per POV assisted into ED with WC r/t mobility issues morbid obesity and angina. Pt was at [employer] riding on scooter when chest pain developed 1 hr ago. Pt has a NTG patch on and used NTG SL x 1. Pt described heavy pressure radiating to neck. Chronic visits to ED, has a planned future pacemaker insertion. Source: patient Exam Limitations: no limitations History of Present Illness Date Seen by Provider: Feb 09, 2022 Time Seen by Provider: 20:10 Initial Comments Patient is a 66-year-old female with history of CAD and angina who presents via POV with left-sided chest pain going into shoulder and neck while riding scooter at local grocery store. Patient pain began approxi-1 hour prior to ED arrival. She has a nitroglycerin patch and used nitroglycerin spray x1. States pain is in a similar pattern location than her previous episode, but was unable to rest after taking first dose. She denies shortness of breath nausea vomiting or sweats. Denies dizziness lightheadedness, abdominal pain, lower extremity pain or loss of sensation. No other acute symptoms or complaints. Timing/Duration: 1 hour Severity: moderate Location: other Activities at Onset: other Prior CP/Workup: other Modifying Factors: improves with other ASA po FUND DEVELOPMENT MANAGER: No Associated Systoms: Other Allergies and Home Medications Allergies Coded Allergies: methylprednisolone (Verified Allergy, Mild, 11/05/18) Penicillins (Unverified Allergy, Unknown, 11/05/18) atorvastatin (Verified Allergy, Unknown, 11/05/18) isosorbide (Verified Allergy, Unknown, 11/05/18) ketorolac (Verified Allergy, Unknown, ITCHING, 11/05/18) promethazine (Unverified Allergy, Unknown, hallucinations, 11/05/18) venom-honey bee (Unverified Allergy, Unknown, 11/05/18) Uncoded Allergies: TAPE (Allergy, Unknown, 08/16/13) Patient Home Medication List Home Medication List Reviewed: Yes Acetaminophen (Acetaminophen) 500 Mg Tablet, 500-1,000 MG PO Q8H PRN for PAIN- MILD (1-4), (Reported) Entered as Reported by: YARA JUAREZ on 09/04/15 5946 Aspirin (Aspirin EC) 81 Mg Tablet.dr, 81 MG PO DAILY, (Reported) Entered as Reported by: RAAD LANDRY on 11/22/21 1004 Diltiazem HCl (Diltiazem 24Hr ER) 120 Mg Cap.er.24h, 120 MG PO BID Prescribed by: NATALIYA ROBERSON JR, MD on 11/22/21 1219 Ezetimibe (Ezetimibe) 10 Mg Tablet, 10 MG PO HS Prescribed by: NATALIYA ROBERSON JR, MD on 11/22/21 1219 Levothyroxine Sodium (Levothyroxine Sodium) 150 Mcg Tablet, 150 MCG PO HS, (Reported) Entered as Reported by: YARA JUAREZ on 09/04/15 1524 Nitroglycerin (Nitroglycerin) 0.4 Mg Tab.subl, 0.4 MG SL UD PRN for CHEST PAIN, (Reported) Entered as Reported by: RAAD LANDRY on 11/22/21 1004 Nitroglycerin (Nitro-Dur 0.6 MG/HR) 0.6 Mg/Hour Patch.td24, 0.6 MG TD DAILY PRN for CHEST PAIN (ANGINA), (Reported) Entered as Reported by: RAAD LANDRY on 11/22/21 1004 Omeprazole (Omeprazole) 40 Mg Capsule.dr, 40 MG PO HS, (Reported) Entered as Reported by: RAAD LANDRY on 11/22/21 1005 Povidone (Soothe Hydration) 1.25 % Drops, 1-2 DROPS OU UD PRN for DRY EYES, (Reported) Entered as Reported by: RAAD LANDRY on 09/13/21 1220 Rosuvastatin Calcium (Rosuvastatin Calcium) 20 Mg Tablet, 40 MG PO HS Prescribed by: NATALIYA ROBERSON JR, MD on 11/22/21 1219 Sulfamethoxazole/Trimethoprim (Bactrim Ds Tablet) 1 Each Tablet, 1 EACH PO BID Prescribed by: ANH GROVER on 02/01/22 1841 Warfarin Sodium (Warfarin Sodium) 5 Mg Tablet, 5 MG PO WED,FR,SAT @HS, (Reported) Entered as Reported by: YARA JUAREZ on 09/04/15 1542 Warfarin Sodium (Warfarin Sodium) 5 Mg Tablet, 7.5 MG PO MARIE,MO,,TH @HS, (Reported) Entered as Reported by: RAAD LANDRY on 01/30/20 1138 Review of Systems Review of Systems Constitutional: see HPI EENTM: See HPI Respiratory: See HPI Cardiovascular: See HPI Gastrointestinal: See HPI Genitourinary: See HPI Musculoskeletal: see HPI Skin: see HPI Psychiatric/Neurological: See HPI Endocrine: See HPI Hematologic/Lymphatic: See HPI All Other Systems Reviewed Negative Unless Noted: No Past Klqximc-Iydtjf-Msteek Hx Patient Social History Tobacco Use?: No Substance use?: No Alcohol Use?: No Immunizations Up To Date Tetanus Booster (TDap): Less than 5yrs PED Vaccines UTD: Yes First/Initial COVID19 Vaccinat: DECLINED Second COVID19 Vaccination Lm: DECLINED Third COVID19 Vaccination Date: DECLINED Seasonal Allergies Seasonal Allergies: No Past Medical History Surgery/Hospitalization HX: SURGERY HX APPY, GALLBLADDER, HYSTERECTOMY, CARDIAC STENTS, COLON CANCER, CHRONIC PE HX, CARDIOMEGALY, CAD, MITRAL AND TRICUSPID VALVE INSUFF, GOPAL, HTN, MORBID OBESITY, GERD, CHRONIC UTI, ANGINA Surgeries: Yes Appendectomy, Cardiac, Coronary Stent, Gallbladder, Hysterectomy, Orthopedic, Thyroidectomy Respiratory: Yes (HAS CPAP--DOES NOT USE ON REGULAR BASIS; P.E. X2) Asthma, Pulmonary Embolism, Sleep Apnea Currently Using CPAP: No Currently Using BIPAP: No Cardiac: Yes (P.E. 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 Sexually Transmitted Disease: No HIV/AIDS: No Genitourinary: Yes Bladder Infection, Kidney Stones Gastrointestinal: Yes (S/P GENI) Gastroesophageal Reflux, Chronic Constipation, Gall Bladder Disease Musculoskeletal: Yes Degenerate Disk Disease, Arthritis, Back Injury, Chronic Back Pain, Spasms Endocrine: Yes (MORBID OBESITY; THYROIDECTOMY) Hypothyroidsim HEENT: Yes Loss of Vision: Bilateral Hearing Impairment: Denies Cancer: No Colon Psychosocial: No Depression Integumentary: No Blood Disorders: Yes (BLOOD CLOTS-DVT/P.E.'S) Adverse Reaction/Blood Tranf: No Family Medical History Arthritis G8 SISTER Cardiovascular disease 03 FATHER Colon cancer 03 MOTHER Completed stroke 03 MOTHER Hypertension 03 MOTHER G8 BROTHER Myocardial infarction 03 MOTHER Thyroid disease G8 SISTER Physical Exam Vital Signs Vital Signs - First Documented 02/09/22 20:11 Temp 36.3 Pulse 61 Resp 16 B/P (MAP) 161/67 (98) Pulse Ox 96 O2 Delivery Room Air Capillary Refill : Less Than 3 Seconds Height, Weight, BMI Height: 5'2.00" Weight: 297lbs. 8.0oz. 134.384900ul; 53.00 BMI Method:Stated General Appearance: No Apparent Distress, WD/WN HEENT: PERRL/EOMI, Normal ENT Inspection, Pharynx Normal Neck: Non Tender Respiratory: Chest Non Tender, Lungs Clear Cardiovascular: Regular Rate, Rhythm Gastrointestinal: Non Tender, Soft Neurologic/Psychiatric: Alert, Oriented x3 Skin: Normal Color Focused Exam Sepsis Stage: Ruled Out Progress/Results/Core Measures Results/Orders Lab Results Laboratory Tests Test 02/09/22 20:13 02/09/22 20:21 02/09/22 22:15 Range/Units White Blood Count 9.0 4.3-11.0 10^3/uL Red Blood Count 4.32 3.80-5.11 10^6/uL Hemoglobin 12.8 11.5-16.0 g/dL Hematocrit 40 35-52 % Mean Corpuscular Volume 93 80-99 fL Mean Corpuscular Hemoglobin 30 25-34 pg Mean Corpuscular Hemoglobin Concent 32 32-36 g/dL Red Cell Distribution Width 14.5 10.0-14.5 % Platelet Count 208 130-400 10^3/uL Mean Platelet Volume 10.9 9.0-12.2 fL Immature Granulocyte % (Auto) 0 % Neutrophils (%) (Auto) 60 42-75 % Lymphocytes (%) (Auto) 30 12-44 % Monocytes (%) (Auto) 9 0-12 % Eosinophils (%) (Auto) 1 0-10 % Basophils (%) (Auto) 0 0-10 % Neutrophils # (Auto) 5.4 1.8-7.8 10^3/uL Lymphocytes # (Auto) 2.7 1.0-4.0 10^3/uL Monocytes # (Auto) 0.8 0.0-1.0 10^3/uL Eosinophils # (Auto) 0.1 0.0-0.3 10^3/uL Basophils # (Auto) 0.0 0.0-0.1 10^3/uL Immature Granulocyte # (Auto) 0.0 0.0-0.1 10^3/uL Sodium Level 139 135-145 MMOL/L Potassium Level 4.0 3.6-5.0 MMOL/L Chloride Level 100 98-107 MMOL/L Carbon Dioxide Level 28 21-32 MMOL/L Anion Gap 11 5-14 MMOL/L Blood Urea Nitrogen 11 7-18 MG/DL Creatinine 0.80 0.60-1.30 MG/DL Estimat Glomerular Filtration Rate 82 BUN/Creatinine Ratio 14 Glucose Level 103 70-105 MG/DL Calcium Level 9.1 8.5-10.1 MG/DL Corrected Calcium 8.9 8.5-10.1 MG/DL Total Bilirubin 0.2 0.1-1.0 MG/DL Aspartate Amino Transf (AST/SGOT) 35 H 5-34 U/L Alanine Aminotransferase (ALT/SGPT) 30 0-55 U/L Alkaline Phosphatase 107 40-136 U/L Troponin I < 0.30 < 0.30 <0.30 NG/ML Total Protein 7.7 6.4-8.2 GM/DL Albumin 4.2 3.2-4.5 GM/DL My Orders Orders - NEREIDA TAPIA DO Cbc With Automated Diff (02/09/22 20:21) Comprehensive Metabolic Panel (02/09/22 20:21) Troponin I Fs (02/09/22 20:21) Ekg Tracing (02/09/22 20:21) Ekg Tracing (02/09/22 20:21) Chest 1 View Ap/Pa Only (02/09/22 20:21) Ketorolac Injection (Toradol Injection) (02/09/22 20:30) Fentanyl Inj (Sublimaze Injection) (02/09/22 20:30) Ondansetron Injection (Zofran Injectio (02/09/22 20:30) Touring Production Manager (02/09/22 21:02) Troponin I Fs (02/09/22 22:20) Medications Given in ED Current Medications Medications Dose Ordered Sig/Marcio Route Start Time Stop Time Status Last Admin Dose Admin Fentanyl Citrate 50 mcg Q1H PRN IVP 02/09/22 20:30 02/09/22 20:34 50 MCG Ondansetron HCl 4 mg ONCE ONCE IVP 02/09/22 20:30 02/09/22 20:31 DC 02/09/22 20:34 4 MG Vital Signs/I&O 02/09/22 20:11 Temp 36.3 Pulse 61 Resp 16 B/P (MAP) 161/67 (98) Pulse Ox 96 O2 Delivery Room Air Blood Pressure Mean: 98 Departure Communication (Admissions) Chest x-ray: No acute cardiopulmonary disease EKG: Sinus bradycardia, no acute ST-T wave changes, normal DE, QRS, QT intervals. Patient with intermittent chest pain which significantly improved prior to ED arrival with additional improvement with fentanyl. Patient with known coronary artery disease with moderate risk for acute coronary syndrome. Recommendations are hospital admission for serial enzymes and cardiology consult. Patient requests discharge home and states she prefers to continue current medications and follow-up with her cardiology office tomorrow morning. She verbalizes risks versus benefits versus alternative of hospital admission. Repeat troponin and EKG are nondiagnostic. Patient will be discharged home per her request. Return precautions reviewed. Patient verbalizes understanding agreement discharge instructions prior to departure. Impression Primary Impression: Chest pain Additional Impression: History of coronary artery disease Disposition: 01 HOME, SELF-CARE Condition: Stable Departure-Patient Inst. Decision time for Depature: 23:18 Referrals: NATALIYA WALLACE (PCP) Primary Care Physician [facility] (Family) Primary Care Physician Patient Instructions: Chest Pain Add. Discharge Instructions: You were evaluated in the emergency department for chest pain. EKG lab and imaging studies were performed and are nondiagnostic. The exact cause of your symptoms has not been determined, but is likely related to your known coronary disease. Please continue home medications as directed and follow-up with your compliance aide's office tomorrow morning for further recommendations. In the meantime if you develop new or worsening symptoms, return to the emergency department. All discharge instructions reviewed with patient and/or family. Voiced understanding. NEREIDA TAPIA DO Feb 09, 2022 23:17
[2022-02-09 23:27] VITALS: BP 95/45
== END 2022-02-09 23:27 | disposition home or self-care (01) ==
LOC: EDUNIT# 20:05 → ER FS 20:08
DX: I25.10 Atherosclerotic heart disease of native coronary artery without angina pectoris (principal); E66.01 Morbid (severe) obesity due to excess calories; Z95.5 Presence of coronary angioplasty implant and graft; Z68.43 Body mass index [BMI] 50.0-59.9, adult; Z28.310 Unvaccinated for COVID-19
CPT/HCPCS: 36415; 71045; 80053; 84484; 85025; 93005; 93041

== ENCOUNTER 2022-02-23 16:22 | Emergency (ER) | payer MEDICARE, MEDICAID ==
[~2022-02-23] VITALS: Ht 157.4 cm; Wt 133.4 kg
--- NOTE | 2022-02-23 17:13 | ED Cough/URI ---
General Chief Complaint: Cough/Cold/Flu Symptoms Stated Complaint: LIGHT HEADED Nursing Triage Note: Patient presents to the ED with c/o lightheadedness, cold symptoms, and right ear pain. Reports cold symptoms and dizziness began 3 days ago and right ear pain x1 week. History of Present Illness Date Seen by Provider: Feb 23, 2022 Time Seen by Provider: 17:17 Initial Comments 66-year-old female here for complaints of dizziness. Patient states that she is not sure if it is her upper respiratory infection that she has had for about a week or her heart condition. 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 Patient states today got worse to the point where she almost passed out so she felt like she needed to come in. No fever no chills. Does have upper respiratory nasal congestion some sore throat. No chest pain no shortness of breath. No abd ominal pain nausea vomiting. No pain with urination. Patient does have a history of UTIs. Allergies and Home Medications Allergies Coded Allergies: methylprednisolone (Verified Allergy, Mild, 11/05/18) Penicillins (Unverified Allergy, Unknown, 11/05/18) atorvastatin (Verified Allergy, Unknown, 11/05/18) isosorbide (Verified Allergy, Unknown, 11/05/18) ketorolac (Verified Allergy, Unknown, ITCHING, 11/05/18) promethazine (Unverified Allergy, Unknown, hallucinations, 11/05/18) venom-honey bee (Unverified Allergy, Unknown, 11/05/18) Uncoded Allergies: TAPE (Allergy, Unknown, 08/16/13) Patient Home Medication List Home Medication List Reviewed: Yes Acetaminophen (Acetaminophen) 500 Mg Tablet, 500-1,000 MG PO Q8H PRN for PAIN- MILD (1-4), (Reported) Entered as Reported by: YARA JUAREZ on 09/04/15 1558 Aspirin (Aspirin EC) 81 Mg Tablet.dr, 81 MG PO DAILY, (Reported) Entered as Reported by: RAAD LANDRY on 11/22/21 1004 Diltiazem HCl (Diltiazem 24Hr ER) 120 Mg Cap.er.24h, 120 MG PO BID Prescribed by: NATALIYA ROBERSON JR, MD on 11/22/21 1219 Ezetimibe (Ezetimibe) 10 Mg Tablet, 10 MG PO HS Prescribed by: NATALIYA ROBERSON JR, MD on 11/22/21 1219 Levothyroxine Sodium (Levothyroxine Sodium) 150 Mcg Tablet, 150 MCG PO HS, (Reported) Entered as Reported by: YARA JUAREZ on 09/04/15 1524 Nitroglycerin (Nitroglycerin) 0.4 Mg Tab.subl, 0.4 MG SL UD PRN for CHEST PAIN, (Reported) Entered as Reported by: RAAD LANDRY on 11/22/21 1004 Nitroglycerin (Nitro-Dur 0.6 MG/HR) 0.6 Mg/Hour Patch.td24, 0.6 MG TD DAILY PRN for CHEST PAIN (ANGINA), (Reported) Entered as Reported by: RAAD LANDRY on 11/22/21 1004 Omeprazole (Omeprazole) 40 Mg Capsule.dr, 40 MG PO HS, (Reported) Entered as Reported by: RAAD LANDRY on 11/22/21 1005 Povidone (Soothe Hydration) 1.25 % Drops, 1-2 DROPS OU UD PRN for DRY EYES, (Reported) Entered as Reported by: RAAD LANDRY on 09/13/21 1220 Rosuvastatin Calcium (Rosuvastatin Calcium) 20 Mg Tablet, 40 MG PO HS Prescribed by: NATALIYA ROBERSON JR, MD on 11/22/21 1219 Sulfamethoxazole/Trimethoprim (Bactrim Ds Tablet) 1 Each Tablet, 1 EACH PO BID Prescribed by: ANH GROVER on 02/01/22 1841 Warfarin Sodium (Warfarin Sodium) 5 Mg Tablet, 5 MG PO THU,,THU @HS, (Reported) Entered as Reported by: YARA JUAREZ on 09/04/15 1542 Warfarin Sodium (Warfarin Sodium) 5 Mg Tablet, 7.5 MG PO ,,, @HS, (Reported) Entered as Reported by: RAAD LANDRY on 01/30/20 1138 Review of Systems Review of Systems Constitutional: see HPI Past Aadtbcz-Lhhcbr-Humxpx Hx Patient Social History Tobacco Use?: No Use of E-Cig and/or Vaping dev: No Substance use?: No Alcohol Use?: No Pt feels they are or have been: No Immunizations Up To Date Tetanus Booster (TDap): Less than 5yrs PED Vaccines UTD: Yes First/Initial COVID19 Vaccinat: DECLINED Second COVID19 Vaccination Lm: DECLINED Third COVID19 Vaccination Date: DECLINED Seasonal Allergies Seasonal Allergies: No Past Medical History Surgery/Hospitalization HX: SURGERY HX APPY, GALLBLADDER, HYSTERECTOMY, CARDIAC STENTS, COLON CANCER, CHRONIC PE HX, CARDIOMEGALY, CAD, MITRAL AND TRICUSPID VALVE INSUFF, GOPAL, HTN, MORBID OBESITY, GERD, CHRONIC UTI, ANGINA Surgeries: Yes Appendectomy, Cardiac, Coronary Stent, Gallbladder, Hysterectomy, Orthopedic, Thyroidectomy Respiratory: Yes (HAS CPAP--DOES NOT USE ON REGULAR BASIS; P.E. X2) Asthma, Pulmonary Embolism, Sleep Apnea Currently Using CPAP: No Currently Using BIPAP: No Cardiac: Yes (P.E. 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 Sexually Transmitted Disease: No HIV/AIDS: No Genitourinary: Yes Bladder Infection, Kidney Stones Gastrointestinal: Yes (S/P GENI) Gastroesophageal Reflux, Chronic Constipation, Gall Bladder Disease Musculoskeletal: Yes Degenerate Disk Disease, Arthritis, Back Injury, Chronic Back Pain, Spasms Endocrine: Yes (MORBID OBESITY; THYROIDECTOMY) Hypothyroidsim HEENT: Yes Loss of Vision: Bilateral Hearing Impairment: Denies Cancer: No Colon Psychosocial: No Depression Integumentary: No Blood Disorders: Yes (BLOOD CLOTS-DVT/P.E.'S) Adverse Reaction/Blood Tranf: No Family Medical History Arthritis G8 SISTER Cardiovascular disease 03 FATHER Colon cancer 03 MOTHER Completed stroke 03 MOTHER Hypertension 03 MOTHER G8 BROTHER Myocardial infarction 03 MOTHER Thyroid disease G8 SISTER Physical Exam Vital Signs - First Documented 02/23/22 16:39 Temp 36.7 Pulse 60 Resp 16 B/P (MAP) 114/57 (76) Pulse Ox 97 O2 Delivery Room Air Capillary Refill : Less Than 3 Seconds Height: 5'2.00" Weight: 297lbs. 8.0oz. 134.588689go; 53.00 BMI Method:Stated General Appearance: WD/WN, no apparent distress HEENT: PERRL/EOMI, TMs normal, other (nasal congestion noted bilaterally. ) Neck: non-tender, supple Respiratory: chest non-tender, lungs clear, normal breath sounds Cardiovascular: regular rate, rhythm, no murmur Gastrointestinal: normal bowel sounds, soft Neurologic/Psychiatric: alert, oriented x 3 Skin: normal color, warm/dry Progress/Results/Core Measures Suspected Sepsis SIRS Temperature: Pulse: 60 Respiratory Rate: 16 Laboratory Tests 02/23/22 17:40: White Blood Count 11.5H Blood Pressure 114 /57 Mean: 76 Laboratory Tests 02/23/22 17:40: Creatinine 0.93, Platelet Count 214, Total Bilirubin 0.2 Results/Orders Lab Results Laboratory Tests Test 02/23/22 17:40 Range/Units White Blood Count 11.5 H 4.3-11.0 10^3/uL Red Blood Count 4.67 3.80-5.11 10^6/uL Hemoglobin 13.6 11.5-16.0 g/dL Hematocrit 43 35-52 % Mean Corpuscular Volume 92 80-99 fL Mean Corpuscular Hemoglobin 29 25-34 pg Mean Corpuscular Hemoglobin Concent 32 32-36 g/dL Red Cell Distribution Width 14.6 H 10.0-14.5 % Platelet Count 214 130-400 10^3/uL Mean Platelet Volume 10.4 9.0-12.2 fL Immature Granulocyte % (Auto) 0 % Neutrophils (%) (Auto) 75 42-75 % Lymphocytes (%) (Auto) 16 12-44 % Monocytes (%) (Auto) 7 0-12 % Eosinophils (%) (Auto) 1 0-10 % Basophils (%) (Auto) 0 0-10 % Neutrophils # (Auto) 8.7 H 1.8-7.8 10^3/uL Lymphocytes # (Auto) 1.9 1.0-4.0 10^3/uL Monocytes # (Auto) 0.9 0.0-1.0 10^3/uL Eosinophils # (Auto) 0.1 0.0-0.3 10^3/uL Basophils # (Auto) 0.0 0.0-0.1 10^3/uL Immature Granulocyte # (Auto) 0.0 0.0-0.1 10^3/uL Neutrophils % (Manual) 77 % Lymphocytes % (Manual) 17 % Monocytes % (Manual) 5 % Eosinophils % (Manual) 1 % Urine Color YELLOW Urine Clarity CLEAR Urine pH 6.0 5-9 Urine Specific [place] 1.025 H 1.016-1.022 Urine Protein NEGATIVE NEGATIVE Urine Glucose (UA) NEGATIVE NEGATIVE Urine Ketones NEGATIVE NEGATIVE Urine Nitrite NEGATIVE NEGATIVE Urine Bilirubin NEGATIVE NEGATIVE Urine Urobilinogen 0.2 < = 1.0 MG/DL Urine Leukocyte Esterase NEGATIVE NEGATIVE Urine RBC (Auto) TRACE-I H NEGATIVE Urine RBC NONE /HPF Urine WBC 2-5 /HPF Urine Squamous Epithelial Cells 10-25 H /HPF Urine Crystals NONE /LPF Urine Bacteria MODERATE H /HPF Urine Casts NONE /LPF Urine Mucus NEGATIVE /LPF Urine Culture Indicated YES Sodium Level 137 135-145 MMOL/L Potassium Level 4.0 3.6-5.0 MMOL/L Chloride Level 97 L 98-107 MMOL/L Carbon Dioxide Level 27 21-32 MMOL/L Anion Gap 13 5-14 MMOL/L Blood Urea Nitrogen 14 7-18 MG/DL Creatinine 0.93 0.60-1.30 MG/DL Estimat Glomerular Filtration Rate 69 BUN/Creatinine Ratio 15 Glucose Level 184 H 70-105 MG/DL Calcium Level 9.4 8.5-10.1 MG/DL Corrected Calcium 9.2 8.5-10.1 MG/DL Total Bilirubin 0.2 0.1-1.0 MG/DL Aspartate Amino Transf (AST/SGOT) 21 5-34 U/L Alanine Aminotransferase (ALT/SGPT) 18 0-55 U/L Alkaline Phosphatase 123 40-136 U/L Troponin I < 0.30 <0.30 NG/ML Total Protein 8.0 6.4-8.2 GM/DL Albumin 4.2 3.2-4.5 GM/DL My Orders Orders - ZOE MENCHACA MD Cbc And Manual Diff (02/23/22 17:20) Comprehensive Metabolic Panel (02/23/22 17:20) Urinalysis (02/23/22 17:20) Troponin I Fs (02/23/22 17:20) Ekg Tracing (02/23/22 17:20) Ct Head Wo (02/23/22 17:20) Ed Iv/Invasive Line Start (02/23/22 17:20) Ns Iv 1000 Ml (Sodium Chloride 0.9%) (02/23/22 17:30) Urine Culture (02/23/22 17:40) Vital Signs/I&O 02/23/22 02/23/22 16:39 19:00 Temp 36.7 36.7 Pulse 60 58 Resp 16 16 B/P (MAP) 114/57 (76) 116/52 Pulse Ox 97 96 O2 Delivery Room Air Room Air 02/24/22 00:00 Intake Total 1000 ml Balance 1000 ml Capillary Refill : Less Than 3 Seconds Blood Pressure Mean: 76 Progress Note #1: Time: 18:[address] EKG and CBC and urine reviewed with patient. CMP pending. Progress Note #2: Time: 18:54 Progress Note Labs reviewed. Patient feeling better after fluid. Will discharge home. F ollow-up with primary care and specialist outpatient ECG Initial ECG Impression Date: Feb 23, 2022 Initial ECG Impression Time: 17:43 Initial ECG Rhythm: Normal Sinus Initial ECG Intervals: Normal Initial ECG Impression: Normal Diagnostic Imaging Diagonstic Imaging: CT Comments [place], [place] NAME: OTONIEL DUNAWAY [facility] REC#: [id number] PT STATUS: DEP ER : 1955 PHYSICIAN: ZOE MENCHACA MD ADMIT DATE: 02/23/22/ER FS Signed Date of Exam:02/23/22 CT HEAD WO EXAMINATION: CT head without contrast. TECHNIQUE: Multiple contiguous axial images were obtained through the brain without the use of intravenous contrast. All CT scans use one or more of the following dose optimizing techniques: automated exposure control, MA and/or KvP adjustment based on patient size and exam type or iterative reconstruction. HISTORY: Presyncope. COMPARISON: 09/22/2019. FINDINGS: The bolanos-white matter differentiation is normal. No mass effect or midline shift. The ventricles are normal in size and configuration. Basilar cisterns are patent. There is no intra-axial or extra-axial fluid collection. There is no intracranial hemorrhage. The orbits are normal. Paranasal sinuses are normal. Mastoid air cells are clear. No soft tissue abnormality is seen. No osseus lesion or fracture is seen. IMPRESSION: No acute intracranial abnormality. Dictated by: Dictated on workstation # [id number] Dict: 02/23/22 1754 Trans: 02/23/221940 [facility] [id number] Interpreted by: KAILA MARIO MD Electronically signed by: KAILA MARIO MD 02/23/221940 Departure Impression Primary Impression: Dizziness Additional Impression: Upper respiratory infection Qualified Codes: J06.9 - Acute upper respiratory infection, unspecified Disposition: HOME, SELF-CARE Condition: Stable Departure-Patient Inst. Decision time for Depature: 18:55 Referrals: JOSE MARTIN MOLINA APRN (PCP) Primary Care Physician Patient Instructions: Dizziness, Nonvertigo, (DC), Cough, Runny Nose, and the Common Cold (DC) Add. Discharge Instructions: Go home and rest. Follow-up with specialist. All discharge instructions reviewed with patient and/or family. Voiced understanding. ZOE MENCHACA MD Feb 23, 2022 17:13
[2022-02-23] MEDS ORDERED: NS IV 1000 ML 1,000 ML IV SCH (17:30)
[2022-02-23 17:50] LABS: BASOPHILS % (AUTO) 0 % (0-10); BILIRUBIN,URINE NEGATIVE (NEGATIVE); CLARITY,URINE CLEAR; COLOR,URINE YELLOW; EOSINOPHILS # (AUTO) 0.1 10^3/uL (0.0-0.3); EOSINOPHILS % (AUTO) 1 % (0-10); GLUCOSE, URINE (UA) NEGATIVE (NEGATIVE); HEMATOCRIT 43 % (35-52); HEMOGLOBIN 13.6 g/dL (11.5-16.0); KETONES,URINE NEGATIVE (NEGATIVE); LEUKOCYTE ESTERASE ,URINE NEGATIVE (NEGATIVE); LYMPHOCYTES # (AUTO) 1.9 10^3/uL (1.0-4.0); LYMPHOCYTES % (AUTO) 16 % (12-44); MEAN CORPUSCULAR HEMOGLOBIN 29 pg (25-34); MEAN CORPUSCULAR HGB CONC 32 g/dL (32-36); MEAN CORPUSCULAR VOLUME 92 fL (80-99); MEAN PLATELET VOLUME 10.4 fL (9.0-12.2); MONOCYTES # (AUTO) 0.9 10^3/uL (0.0-1.0); MONOCYTES % (AUTO) 7 % (0-12); NEUTROPHILS # (AUTO) 8.7 10^3/uL (1.8-7.8); NEUTROPHILS % (AUTO) 75 % (42-75); NITRITE,URINE NEGATIVE (NEGATIVE); PLATELET COUNT 214 10^3/uL (130-400); PROTEIN,URINE NEGATIVE (NEGATIVE); WHITE BLOOD COUNT 11.5 10^3/uL (4.3-11.0)
[2022-02-23 17:55] LABS: BACTERIA,URINE MODERATE /HPF
--- NOTE | 2022-02-23 17:58 | Diagnostic Imaging Report ---
EXAMINATION: CT head without contrast. TECHNIQUE: Multiple contiguous axial images were obtained through the brain without the use of intravenous contrast. All CT scans use one or more of the following dose optimizing techniques: automated exposure control, MA and/or KvP adjustment based on patient size and exam type or iterative reconstruction. HISTORY: Presyncope. COMPARISON: 09/22/2019. FINDINGS: The bolanos-white matter differentiation is normal. No mass effect or midline shift. The ventricles are normal in size and configuration. Basilar cisterns are patent. There is no intra-axial or extra-axial fluid collection. There is no intracranial hemorrhage. The orbits are normal. Paranasal sinuses are normal. Mastoid air cells are clear. No soft tissue abnormality is seen. No osseus lesion or fracture is seen. IMPRESSION: No acute intracranial abnormality. Dictated by: Dictated on workstation # [id number]
[2022-02-23 18:13] LABS: ALANINE AMINOTRANSFERASE 18 U/L (0-55); ALBUMIN 4.2 GM/DL (3.2-4.5); ALKALINE PHOSPHATASE 123 U/L (40-136); BILIRUBIN,TOTAL 0.2 MG/DL (0.1-1.0); BUN/CREATININE RATIO 15; CALCIUM 9.4 MG/DL (8.5-10.1); CARBON DIOXIDE 27 MMOL/L (21-32); CHLORIDE 97 MMOL/L (98-107); CREATININE SERUM 0.93 MG/DL (0.60-1.30); GFR ESTIMATED 69; GLUCOSE 184 MG/DL (70-105); SODIUM 137 MMOL/L (135-145)
[2022-02-23 18:52] LABS: EOSINOPHILS % (MANUAL) 1 %; LYMPHOCYTES % (MANUAL) 17 %; MONOCYTES % (MANUAL) 5 %; NEUTROPHILS % (MANUAL) 77 %
[2022-02-23 19:00] VITALS: BP 116/52
== END 2022-02-23 19:00 | disposition home or self-care (01) ==
LOC: EDUNIT# 16:22 → ER FS 16:24
DX: J06.9 Acute upper respiratory infection, unspecified (principal); R42 Dizziness and giddiness; E66.01 Morbid (severe) obesity due to excess calories; Z68.43 Body mass index [BMI] 50.0-59.9, adult
CPT/HCPCS: 36415; 70450; 80053; 81000; 84484; 85007; 85027; 87088; 93005

== ENCOUNTER 2022-03-10 11:41 | Emergency (ER) | payer MEDICARE, MEDICAID ==
[~2022-03-10] VITALS: Ht 157 cm; Wt 130.0 kg
[2022-03-10] MEDS ORDERED: ONDANSETRON 4 MG/2 ML (SDV) Z0FRAN IVP STA (12:03)
[2022-03-10] MEDS ORDERED: fentaNYL INJ 100 MCG/2 ML AMP IVP STA (12:03)
[2022-03-10] MEDS ORDERED: NS IV 500 ML 500 ML IV STA (12:03)
[2022-03-10 12:11] LABS: BASOPHILS % (AUTO) 0 % (0-10); EOSINOPHILS # (AUTO) 0.1 10^3/uL (0.0-0.3); EOSINOPHILS % (AUTO) 1 % (0-10); HEMATOCRIT 38 % (35-52); LYMPHOCYTES # (AUTO) 1.5 10^3/uL (1.0-4.0); LYMPHOCYTES % (AUTO) 25 % (12-44); MEAN CORPUSCULAR HEMOGLOBIN 30 pg (25-34); MEAN CORPUSCULAR HGB CONC 32 g/dL (32-36); MEAN CORPUSCULAR VOLUME 93 fL (80-99); MEAN PLATELET VOLUME 10.7 fL (9.0-12.2); MONOCYTES # (AUTO) 0.3 10^3/uL (0.0-1.0); MONOCYTES % (AUTO) 5 % (0-12); NEUTROPHILS # (AUTO) 4.3 10^3/uL (1.8-7.8); NEUTROPHILS % (AUTO) 69 % (42-75); PLATELET COUNT 175 10^3/uL (130-400); WHITE BLOOD COUNT 6.2 10^3/uL (4.3-11.0)
--- NOTE | 2022-03-10 12:11 | ED General ---
General Chief Complaint: Head/Cervical Problems Stated Complaint: HEADACHE; LT FACIAL NUMBNESS Nursing Triage Note: PT REPORTS SHE WOKE UP TO LEFT SIDED FACIAL NUMBNESS AND BLURRY VISION IN HER LEFT EYE. SHE REPORTS SHE HAD A SHARP PAIN IN HER NECK AND BACK OF HEAD THE LAST COUPLE OF DAYS. SHE REPORTS IT FEELS LIKE HER MIGRAINE. Source of Information: Patient History of Present Illness Date Seen by Provider: Mar 10, 2022 Time Seen by Provider: 11:44 Initial Comments 66-year-old female presenting with complaints of neck and occipital pain over the last few days. That resolved but she now has woken up this morning around 7 or 730 with sensation of swelling and numbness to her left cheek and her vision was blurred from her left eye. She states that that improved but she still has some numbness to her cheek. She denies having nausea, vomiting, chest pain, abdominal pain, pain with urination, increased shortness of breath, fever, chills, recent falls. She would like to have her pro time checked as she does take warfarin for a history of blood clots. She states that they have been monitoring her for heart disease and blockages. They told her that she had narrowing in her carotid arteries. She states that the numbness and blurred vision are similar to when she used to get migraine headaches but it has been over a year since she last had one. She used to take a pill for the migraines from a [facility] doctor but does not remember the name of the medicine or the doctor. She remembers they told her to not take Caffeine with the pill. Timing/Duration: 4-6 Hours Severity: Mild Associated Systoms: No Chest Pain, No Cough, No Diaphoresis, No Fever/Chills; Headaches (occiput and neck yesterday but none today. ); No Loss of Appetite, No Malaise, No Nausea/Vomiting, No Rash, No Seizure; Shortness of Air (chronic and no worse today than usual); No Syncope; Weakness (generalized) Allergies and Home Medications Allergies Coded Allergies: methylprednisolone (Verified Allergy, Mild, 11/05/18) Penicillins (Unverified Allergy, Unknown, 11/05/18) atorvastatin (Verified Allergy, Unknown, 11/05/18) isosorbide (Verified Allergy, Unknown, 11/05/18) ketorolac (Verified Allergy, Unknown, ITCHING, 11/05/18) promethazine (Unverified Allergy, Unknown, hallucinations, 11/05/18) venom-honey bee (Unverified Allergy, Unknown, 11/05/18) Uncoded Allergies: TAPE (Allergy, Unknown, 08/16/13) Patient Home Medication List Home Medication List Reviewed: Yes Acetaminophen (Acetaminophen) 500 Mg Tablet, 500-1,000 MG PO Q8H PRN for PAIN- MILD (1-4), (Reported) Entered as Reported by: YARA JUAREZ on 09/04/15 1558 Aspirin (Aspirin EC) 81 Mg Tablet.dr, 81 MG PO DAILY, (Reported) Entered as Reported by: RAAD LANDRY on 11/22/21 1004 Diltiazem HCl (Diltiazem 24Hr ER) 120 Mg Cap.er.24h, 120 MG PO BID Prescribed by: NATALIYA ROBERSON JR, MD on 11/22/21 1219 Ezetimibe (Ezetimibe) 10 Mg Tablet, 10 MG PO HS Prescribed by: NATALIYA ROBERSON JR, MD on 11/22/21 1219 Levothyroxine Sodium (Levothyroxine Sodium) 150 Mcg Tablet, 150 MCG PO HS, (Reported) Entered as Reported by: YARA JUAREZ on 09/04/15 1524 Nitroglycerin (Nitroglycerin) 0.4 Mg Tab.subl, 0.4 MG SL UD PRN for CHEST PAIN, (Reported) Entered as Reported by: RAAD LANDRY on 11/22/21 1004 Nitroglycerin (Nitro-Dur 0.6 MG/HR) 0.6 Mg/Hour Patch.td24, 0.6 MG TD DAILY PRN for CHEST PAIN (ANGINA), (Reported) Entered as Reported by: RAAD LANDRY on 11/22/21 1004 Omeprazole (Omeprazole) 40 Mg Capsule.dr, 40 MG PO HS, (Reported) Entered as Reported by: RAAD LANDRY on 11/22/21 1005 Povidone (Soothe Hydration) 1.25 % Drops, 1-2 DROPS OU UD PRN for DRY EYES, (Reported) Entered as Reported by: RAAD LANDRY on 09/13/21 1220 Rosuvastatin Calcium (Rosuvastatin Calcium) 20 Mg Tablet, 40 MG PO HS Prescribed by: NATALIYA ROBERSON JR, MD on 11/22/21 1219 Sulfamethoxazole/Trimethoprim (Bactrim Ds Tablet) 1 Each Tablet, 1 EACH PO BID Prescribed by: ANH GROVER on 02/01/22 1841 Warfarin Sodium (Warfarin Sodium) 5 Mg Tablet, 5 MG PO WED,FR,SAT @HS, (Reported) Entered as Reported by: YARA JUAREZ on 09/04/15 1542 Warfarin Sodium (Warfarin Sodium) 5 Mg Tablet, 7.5 MG PO MARIE,MO,,TH @HS, (Reported) Entered as Reported by: RAAD LANDRY on 01/30/20 1138 Review of Systems Review of Systems Constitutional: see HPI; No chills, No fever EENTM: see HPI; No epistaxis, No nose congestion Respiratory: no symptoms reported Cardiovascular: no symptoms reported Gastrointestinal: no symptoms reported Genitourinary: no symptoms reported Musculoskeletal: see HPI Skin: No rash Psychiatric/Neurological: See HPI Hematologic/Lymphatic: Blood Clots (hx of PE, now on Warfarin) Past Uryxxlo-Nhsicj-Amzktj Hx Patient Social History Tobacco Use?: No Use of E-Cig and/or Vaping dev: No Substance use?: No Alcohol Use?: No Pt feels they are or have been: No Immunizations Up To Date Tetanus Booster (TDap): Less than 5yrs PED Vaccines UTD: Yes First/Initial COVID19 Vaccinat: DECLINED Second COVID19 Vaccination Lm: DECLINED Third COVID19 Vaccination Date: DECLINED Seasonal Allergies Seasonal Allergies: No Past Medical History Surgery/Hospitalization HX: SURGERY HX APPY, GALLBLADDER, HYSTERECTOMY, CARDIAC STENTS, COLON CANCER, CHRONIC PE HX, CARDIOMEGALY, CAD, MITRAL AND TRICUSPID VALVE INSUFF, GOPAL, HTN, MORBID OBESITY, GERD, CHRONIC UTI, ANGINA Surgeries: Yes Appendectomy, Cardiac, Coronary Stent, Gallbladder, Hysterectomy, Orthopedic, Thyroidectomy Respiratory: Yes (HAS CPAP--DOES NOT USE ON REGULAR BASIS; P.E. X2) Asthma, Pulmonary Embolism, Sleep Apnea Currently Using CPAP: No Currently Using BIPAP: No Cardiac: Yes (P.E. 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 Sexually Transmitted Disease: No HIV/AIDS: No Genitourinary: Yes Bladder Infection, Kidney Stones Gastrointestinal: Yes (S/P GENI) Gastroesophageal Reflux, Chronic Constipation, Gall Bladder Disease Musculoskeletal: Yes Degenerate Disk Disease, Arthritis, Back Injury, Chronic Back Pain, Spasms Endocrine: Yes (MORBID OBESITY; THYROIDECTOMY) Hypothyroidsim HEENT: Yes Loss of Vision: Bilateral Hearing Impairment: Denies Cancer: No Colon Psychosocial: No Depression Integumentary: No Blood Disorders: Yes (BLOOD CLOTS-DVT/P.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 8.0oz. 134.027498tw; 52.00 BMI Method:Stated General Appearance: No Apparent Distress, Obese, Other (poor hygiene, fleas seen on the patient and her clothes) HEENT: PERRL/EOMI, TMs Normal, Normal ENT Inspection, Pharynx Normal, Moist Mucous Membranes Neck: Full Range of Motion, Normal Inspection, Non Tender, Supple Respiratory: Chest Non Tender, Lungs Clear, Normal Breath Sounds, No Accessory Muscle Use, No Respiratory Distress Cardiovascular: Regular Rate, Rhythm, Normal Peripheral Pulses Gastrointestinal: Normal Bowel Sounds, No Pulsatile Mass, Non Tender, Soft Rectal: Deferred Extremity: Normal Capillary Refill, Normal Inspection, Normal Range of Motion, Pedal Edema (1+ BLE) Neurologic/Psychiatric: Alert, Oriented x3, Normal Mood/Affect; No Facial Droop; Sensory Deficit (single area on midface left cheek had decreased sensation compared to rest of left face and right side of face) Skin: Normal Color, Warm/Dry Progress/Results/Core Measures Suspected Sepsis SIRS Temperature: Pulse: 65 Respiratory Rate: 16 Laboratory Tests 03/10/22 11:48: White Blood Count 6.2 Blood Pressure 138 /59 Mean: 85 Laboratory Tests 03/10/22 11:48: Creatinine 0.69, INR Comment 2.1H, Platelet Count 175, Total Bilirubin 0.2 Results/Orders Lab Results Laboratory Tests Test 03/10/22 11:48 03/10/22 13:03 Range/Units White Blood Count 6.2 4.3-11.0 10^3/uL Red Blood Count 4.07 3.80-5.11 10^6/uL Hemoglobin 12.0 11.5-16.0 g/dL Hematocrit 38 35-52 % Mean Corpuscular Volume 93 80-99 fL Mean Corpuscular Hemoglobin 30 25-34 pg Mean Corpuscular Hemoglobin Concent 32 32-36 g/dL Red Cell Distribution Width 14.9 H 10.0-14.5 % Platelet Count 175 130-400 10^3/uL Mean Platelet Volume 10.7 9.0-12.2 fL Immature Granulocyte % (Auto) 1 % Neutrophils (%) (Auto) 69 42-75 % Lymphocytes (%) (Auto) 25 12-44 % Monocytes (%) (Auto) 5 0-12 % Eosinophils (%) (Auto) 1 0-10 % Basophils (%) (Auto) 0 0-10 % Neutrophils # (Auto) 4.3 1.8-7.8 10^3/uL Lymphocytes # (Auto) 1.5 1.0-4.0 10^3/uL Monocytes # (Auto) 0.3 0.0-1.0 10^3/uL Eosinophils # (Auto) 0.1 0.0-0.3 10^3/uL Basophils # (Auto) 0.0 0.0-0.1 10^3/uL Immature Granulocyte # (Auto) 0.0 0.0-0.1 10^3/uL Prothrombin Time 23.7 H 12.2-14.7 SEC INR Comment 2.1 H 0.8-1.4 Activated Partial Thromboplast Time 38 H 24-35 SEC Sodium Level 142 135-145 MMOL/L Potassium Level 4.4 3.6-5.0 MMOL/L Chloride Level 107 98-107 MMOL/L Carbon Dioxide Level 24 21-32 MMOL/L Anion Gap 11 5-14 MMOL/L Blood Urea Nitrogen 10 7-18 MG/DL Creatinine 0.69 0.60-1.30 MG/DL Estimat Glomerular Filtration Rate 97 BUN/Creatinine Ratio 14 Glucose Level 233 H 70-105 MG/DL Calcium Level 8.2 L 8.5-10.1 MG/DL Corrected Calcium 8.5 8.5-10.1 MG/DL Magnesium Level 2.0 1.6-2.4 MG/DL Total Bilirubin 0.2 0.1-1.0 MG/DL Aspartate Amino Transf (AST/SGOT) 24 5-34 U/L Alanine Aminotransferase (ALT/SGPT) 20 0-55 U/L Alkaline Phosphatase 103 40-136 U/L Troponin I < 0.20 <0.30 NG/ML Pro-B-Type Natriuretic Peptide 486.8 H <125.0 PG/ML Total Protein 6.6 6.4-8.2 GM/DL Albumin 3.6 3.2-4.5 GM/DL Urine Color YELLOW Urine Clarity SLT CLOUDY Urine pH 6.0 5-9 Urine Specific [place] 1.025 H 1.016-1.022 Urine Protein NEGATIVE NEGATIVE Urine Glucose (UA) NEGATIVE NEGATIVE Urine Ketones NEGATIVE NEGATIVE Urine Nitrite NEGATIVE NEGATIVE Urine Bilirubin NEGATIVE NEGATIVE Urine Urobilinogen 0.2 < = 1.0 MG/DL Urine Leukocyte Esterase NEGATIVE NEGATIVE Urine RBC (Auto) NEGATIVE NEGATIVE Urine RBC RARE /HPF Urine WBC 0-2 /HPF Urine Squamous Epithelial Cells 2-5 /HPF Urine Crystals NONE /LPF Urine Bacteria MODERATE H /HPF Urine Casts NONE /LPF Urine Mucus NEGATIVE /LPF Urine Culture Indicated NO My Orders Orders - AMANDEEP HAMMOND MD Cbc With Automated Diff (03/10/22 12:01) Magnesium (03/10/22 12:01) Ekg Tracing (03/10/22 12:01) Comprehensive Metabolic Panel (03/10/22 12:01) Protime With Inr (03/10/22 12:01) Partial Thromboplastin Time (03/10/22 12:01) O2 (03/10/22 12:01) Monitor-Rhythm Ecg Trace Only (03/10/22 12:01) Ed Iv/Invasive Line Start (03/10/22 12:01) Troponin I Fs (03/10/22 12:01) Probnp Fs (03/10/22 12:01) Ua Culture If Indicated (03/10/22 12:01) Ct Head/Cervical Spine Wo (03/10/22 12:01) Ns Iv 500 Ml (Sodium Chloride 0.9%) (03/10/22 12:03) Fentanyl Inj (Sublimaze Injection) (03/10/22 12:03) Ondansetron Injection (Zofran Injectio (03/10/22 12:03) Vital Signs/I&O 03/10/22 03/10/22 11:44 13:29 Temp 36.8 36.8 Pulse 65 68 Resp 16 16 B/P (MAP) 138/59 (85) 132/64 Pulse Ox 96 96 O2 Delivery Room Air Room Air Capillary Refill : Less Than 3 Seconds Blood Pressure Mean: 85 Progress Note #1: Progress Note Obtain basic lab with urinalysis and electrocardiogram as well as CT scan of the head and cervical spine to evaluate for signs of infection, stroke, intracranial hemorrhage, cervical spine fracture, skull fracture, acute coronary syndrome, myocardial infarction, electrolyte imbalance. Administer normal saline 500 mL IV x1 for fluid bolus for hydration. As patient reports that she is allergic to Toradol will administer fentanyl 50 mcg IV along with Zofran 4 mg IV for possible migraine variant. Due to her chronic anticoagulation as well as waiting almost 5 hours before arriving at the emergency department with her symptoms she would be outside of any tPA type treatment window if this did cross tie turner to be an stroke on her CT scan. Since she does report this feels similar to history of migraine headaches will see how she does with the fluid, fentanyl and Zofran to try and alleviate her symptoms. Progress Note #2: Time: 13:21 Progress Note Labs and urine are all stable without acute significant abnormality. Her CBC is not showing anemia or high white count for infection. Her chemistry panel is stable as well as her cardiac enzymes. No acute elevation of her cardiac enzymes or significant electrolyte imbalance to account for her symptoms. On my review of her CT head and cervical spine she has no acute process. Urinalysis does not show infection but she did have bacteria. However there was no leukocyte esterase or nitrites. Awaiting official reading from radiology on the CT scan of the head and cervical spine. Progress Note #3: Time: 13:[address] scan of the head and cervical spine are stable from February 23 and did not show any acute significant abnormality. Will reassure patient and encouraged that she follow-up with primary care provider. There is no signs of acute stroke, hemorrhage, electrolyte imbalance. Urinary tract infection. This could still be a migraine variant since it is similar to what she has had before. Encouraged her to continue on her regular medications and follow-up through the clinic. ECG Initial ECG Impression Date: Mar 10, 2022 Initial ECG Impression Time: 11:51 Initial ECG Rate: 63 Initial ECG Rhythm: Normal Sinus Initial ECG Comparisson: Unchanged (23 February 2022) Comment I personally interpreted and reviewed her electrocardiogram. She had a normal sinus rhythm with a heart rate of 63 bpm. KS interval [address] elevation. QT interval 423 ms with a QTc interval 430 ms. She does have some global T wave flattening. Overall this tracing appears similar to previous tracing from 23 February 2022 Diagnostic Imaging Diagonstic Imaging: CT Plain Films/CT/US/NM/MRI: c-spine, head Comments NAME: OTONIEL DUNAWAY [facility] REC#: [id number] PT STATUS: REG ER : 1955 PHYSICIAN: AMANDEEP HAMMOND MD ADMIT DATE: 03/10/22/ER FS Draft Date of Exam:03/10/22 CT HEAD/CERVICAL SPINE WO PROCEDURE: CT head and CT cervical spine without contrast. TECHNIQUE: Multiple contiguous axial images were obtained through the brain and cervical spine without the use of intravenous contrast. Sagittal and coronal reformations through the cervical spine were then performed. Auto Exposure Controls were utilized during the CT exam to meet ALARA standards for radiation dose reduction. INDICATION: Headache, pain. COMPARISON: 02/23/2022 and 08/10/2015 FINDINGS: No intracranial hemorrhage. No intracranial mass, mass effect, midline shift, herniation, hydrocephalus, or extra-axial fluid collection. Stable asymmetry of the lateral ventricles. No CT evidence of an acute ischemic infarction. Midline structures are unremarkable. The orbits are unremarkable. The paranasal sinuses are clear. The calvarium and extra calvarial soft tissues are unremarkable. Alignment of the cervical spine is stable from the prior examination without significant anterolisthesis or retrolisthesis. Postsurgical changes with corpectomy with anterior fusion and strut device noted at C5-C7, appearing similar to the prior examination without hardware complication. Vertebral body heights are well-maintained. Mild disc space height loss at C7/T1. No severe disc space height loss. No acute fracture or dislocation. No destructive osseous process. Mild scattered facet joint degenerative changes and uncovertebral joint hypertrophy. No severe osseous central canal stenosis. No apical pneumothorax within the [id number]. IMPRESSION: No acute intracranial abnormality. No acute osseous abnormality within the cervical spine alignment with postsurgical and mild degenerative changes present. Dictated on workstation # [id number] Dict: 03/10/22 1307 Trans: 03/10/22 1321 [id number] Interpreted by: ALLEN HOLGUIN MD Electronically signed by: Reviewed: Reviewed by Me Departure Impression Primary Impression: Facial paresthesia Additional Impressions: Blurred vision, left eye Neck pain without injury Occipital pain Disposition: HOME, SELF-CARE Condition: Stable Departure-Patient Inst. Decision time for Depature: 13:28 Referrals: JOSE MARTIN MOLINA APRN (PCP) Primary Care Physician NO,LOCAL PHYSICIAN (Family) Primary Care Physician Patient Instructions: Headache, Adult ED, Home Headache Remedies, Migraines (DC) Add. Discharge Instructions: Your INR is 2.1 for your Warfarin thinning your blood. Your labs and urine are stable and not showing infection or problems with your electrolytes (the salts in your blood) This may be a migraine variant since it is similar to when you had previous migraine episodes. No signs of bleeding, stroke or mass on CT scan. Check back with your regular provider for continued concerns. Continue taking your regular medicines. All discharge instructions reviewed with patient and/or family. Voiced understanding. AMANDEEP HAMMOND MD Mar 10, 2022 12:11
[2022-03-10 12:19] LABS: INR 2.1 (0.8-1.4); PROTHROMBIN TIME PATIENT 23.7 SEC (12.2-14.7)
[2022-03-10 12:36] LABS: BILIRUBIN,TOTAL 0.2 MG/DL (0.1-1.0); CALCIUM 8.2 MG/DL (8.5-10.1); CREATININE SERUM 0.69 MG/DL (0.60-1.30); POTASSIUM 4.4 MMOL/L (3.6-5.0); TOTAL PROTEIN 6.6 GM/DL (6.4-8.2)
[2022-03-10 12:37] LABS: ALBUMIN 3.6 GM/DL (3.2-4.5)
[2022-03-10 13:05] LABS: BILIRUBIN,URINE NEGATIVE (NEGATIVE); COLOR,URINE YELLOW; GLUCOSE, URINE (UA) NEGATIVE (NEGATIVE); KETONES,URINE NEGATIVE (NEGATIVE); LEUKOCYTE ESTERASE ,URINE NEGATIVE (NEGATIVE); NITRITE,URINE NEGATIVE (NEGATIVE); PROTEIN,URINE NEGATIVE (NEGATIVE)
[2022-03-10 13:13] LABS: BACTERIA,URINE MODERATE /HPF; CLARITY,URINE SLT CLOUDY; RBC,URINE RARE /HPF; WBC,URINE 0-2 /HPF
--- NOTE | 2022-03-10 13:22 | Diagnostic Imaging Report ---
PROCEDURE: CT head and CT cervical spine without contrast. TECHNIQUE: Multiple contiguous axial images were obtained through the brain and cervical spine without the use of intravenous contrast. Sagittal and coronal reformations through the cervical spine were then performed. Auto Exposure Controls were utilized during the CT exam to meet ALARA standards for radiation dose reduction. INDICATION: Headache, pain. COMPARISON: 02/23/2022 and 08/10/2015 FINDINGS: No intracranial hemorrhage. No intracranial mass, mass effect, midline shift, herniation, hydrocephalus, or extra-axial fluid collection. Stable asymmetry of the lateral ventricles. No CT evidence of an acute ischemic infarction. Midline structures are unremarkable. The orbits are unremarkable. The paranasal sinuses are clear. The calvarium and extra calvarial soft tissues are unremarkable. Alignment of the cervical spine is stable from the prior examination without significant anterolisthesis or retrolisthesis. Postsurgical changes with corpectomy with anterior fusion and strut device noted at C5-C7, appearing similar to the prior examination without hardware complication. Vertebral body heights are well-maintained. Mild disc space height loss at C7/T1. No severe disc space height loss. No acute fracture or dislocation. No destructive osseous process. Mild scattered facet joint degenerative changes and uncovertebral joint hypertrophy. No severe osseous central canal stenosis. No apical pneumothorax within the [id number]. IMPRESSION: No acute intracranial abnormality. No acute osseous abnormality within the cervical spine alignment with postsurgical and mild degenerative changes present. Dictated by: Dictated on workstation # [id number]
[2022-03-10 13:29] VITALS: BP 132/64
== END 2022-03-10 13:30 | disposition home or self-care (01) ==
LOC: EDUNIT# 11:41 → ER FS 11:43
DX: R20.2 Paresthesia of skin (principal); H53.8 Other visual disturbances; M54.2 Cervicalgia; R51.9 Headache, unspecified; H54.3 Unqualified visual loss, both eyes; Z28.310 Unvaccinated for COVID-19
CPT/HCPCS: 36415; 70450; 72125; 80053; 81000; 83735; 83880; 84484; 85025; 85610; 85730; 93005; 93041

== ENCOUNTER 2022-04-21 17:34 | Emergency (ER) | payer MEDICARE, MEDICAID ==
[~2022-04-21] VITALS: Ht 157.5 cm; Wt 131.5 kg
[~2022-04-21 17:34] MED LIST changes: +CLOP-31 PO; -CLOP75TA69 PO; -DOXY-311 PO; +DOXY-444 PO
[2022-04-21] MEDS ORDERED: LIDOCAINE UROJET 2% GEL 10 ML PKG TOP ONE (18:15)
--- NOTE | 2022-04-21 18:15 | ED Neurological Problem ---
General Chief Complaint: Neuro-Stroke Like Symptoms Stated Complaint: FACE/LT SIDE OF BODY NUMBNESS,BLURRY VISION LT EYE Nursing Triage Note: PT TO RM 10 BY WC WITH COMPLAINT OF FACIAL NUMBNESS/TINGLING. 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 STATES SHE GETS MIGRAINES THAT MIMIC A STROKE. STATES SHE IS STARTING TO FEEL A TIGHT BAND AROUND HER HEAD. Source: patient History of Present Illness Date Seen by Provider: Apr 21, 2022 Time Seen by Provider: 18:00 Initial Comments PT ARRIVES VIA POV FROM [facility], IN WHEELCHAIR WAS AT [facility], AND 30-45 MINUTES PRIOR TO ARRIVAL, SHE BEGAN HAVING LEFT FACIAL NUMBNESS AND TINGLING NOW STARTING TO HAVE A HEADACHE--LIKE A TIGHT BAND AROUND HER HEAD SLIGHT BLURRY VISION IN LEFT EYE. SHE HAS MIGRAINES THAT MIMIC A STROKE AND THIS IS EXACTLY THE SAME HER PREVIOUS MIGRAINES HAS NOT TAKEN ANYTHING FOR HER SYMPTOMS NO NAUSEA/VOMITING NO PARESTHESIAS OR MOTOR DEFICITS TO ANY OTHER PART OF HER BODY NO FACIAL DROOP NO PROBLEMS TALKING OR SWALLOWING NO PROBLEMS STANDING--PT IS ABLE TO GET OUT OF WHEELCHAIR ON HER OWN, STAND WITHOUT DIFFICULTY. AND GET HERSELF ONTO ER CART NO DIZZINESS OR SYNCOPE NO FEVER OR RECENT ILLNESS NO GI SYMPTOMS NO RESPIRATORY SYMPTOMS NO CHEST PAIN OR PALPITATIONS--PT HAS HISTORY OF P.E.'S AND CAD WITH STENTS, AND IS ON COUMADIN, AND HAS A LOOP RECORDER IN PLACE. PT WELL KNOWN TO THIS ER, WELL MULTIPLE OTHER ER'S AND URGENT CARES IN THE AREA--[place] AND [facility], AND FREQUENTS MULTIPLE PROVIDERS AND HAS RECEIVED MULTITUDE OF RX'S FOR NARCOTICS PCP: [facility], ANKUR MOLINA Allergies and Home Medications Allergies Coded Allergies: methylprednisolone (Verified Allergy, Mild, 11/05/18) Penicillins (Unverified Allergy, Unknown, 11/05/18) atorvastatin (Verified Allergy, Unknown, 11/05/18) isosorbide (Verified Allergy, Unknown, 11/05/18) ketorolac (Verified Allergy, Unknown, ITCHING, 11/05/18) promethazine (Unverified Allergy, Unknown, hallucinations, 11/05/18) venom-honey bee (Unverified Allergy, Unknown, 11/05/18) Uncoded Allergies: TAPE (Allergy, Unknown, 4/8/14) Patient Home Medication List Home Medication List Reviewed: Yes Acetaminophen (Acetaminophen) 500 Mg Tablet, 500-1,000 MG PO Q8H PRN for PAIN- MILD (1-4), (Reported) Entered as Reported by: YARA JUAREZ on 09/04/15 1558 Aspirin (Aspirin EC) 81 Mg Tablet.dr, 81 MG PO DAILY, (Reported) Entered as Reported by: RAAD LANDRY on 11/22/21 1004 Diltiazem HCl (Diltiazem 24Hr ER) 120 Mg Cap.er.24h, 120 MG PO BID Prescribed by: NATALIYA ROBERSON JR, MD on 11/22/21 1219 Ezetimibe (Ezetimibe) 10 Mg Tablet, 10 MG PO HS Prescribed by: NATALIYA ROBERSON JR, MD on 11/22/21 1219 Levothyroxine Sodium (Levothyroxine Sodium) 150 Mcg Tablet, 150 MCG PO HS, (Re ported) Entered as Reported by: YARA JUAREZ on 09/04/15 1524 Nitroglycerin (Nitroglycerin) 0.4 Mg Tab.subl, 0.4 MG SL UD PRN for CHEST PAIN, (Reported) Entered as Reported by: RAAD LANDRY on 11/22/21 1004 Nitroglycerin (Nitro-Dur 0.6 MG/HR) 0.6 Mg/Hour Patch.td24, 0.6 MG TD DAILY PRN for CHEST PAIN (ANGINA), (Reported) Entered as Reported by: RAAD LANDRY on 11/22/21 1004 Omeprazole (Omeprazole) 40 Mg Capsule.dr, 40 MG PO HS, (Reported) Entered as Reported by: RAAD LANDRY on 11/22/21 1005 Povidone (Soothe Hydration) 1.25 % Drops, 1-2 DROPS OU UD PRN for DRY EYES, (Reported) Entered as Reported by: RAAD LANDRY on 09/13/21 1220 Rosuvastatin Calcium (Rosuvastatin Calcium) 20 Mg Tablet, 40 MG PO HS Prescribed by: NATALIYA ROBERSON JR, MD on 11/22/21 1219 Sulfamethoxazole/Trimethoprim (Bactrim Ds Tablet) 1 Each Tablet, 1 EACH PO BID Prescribed by: ANH GROVER on 02/01/22 1841 Warfarin Sodium (Warfarin Sodium) 5 Mg Tablet, 5 MG PO THU,,SAT @HS, (Reported) Entered as Reported by: YARA JUAREZ on 09/04/15 1542 Warfarin Sodium (Warfarin Sodium) 5 Mg Tablet, 7.5 MG PO MARIE,MO,,TH @HS, (Reported) Entered as Reported by: RAAD LANDRY on 01/30/20 1138 Review of Systems Review of Systems Constitutional: no symptoms reported Eyes: See HPI Ears, Nose, Mouth, Throat: no symptoms reported Respiratory: no symptoms reported Cardiovascular: no symptoms reported Gastrointestinal: no symptoms reported Genitourinary: no symptoms reported Musculoskeletal: no symptoms reported Skin: no symptoms reported Psychiatric/Neurological: See HPI; Denies Cognitive Dysfunction; Headache, Numbness, Tingling; Denies Weakness Endocrine: No Symptoms Reported Hematologic/Lymphatic: No Symptoms Reported Past Hnrkaef-Ntssiz-Vpkgtp Hx Patient Social History Tobacco Use?: No Use of E-Cig and/or Vaping dev: No Substance use?: No Alcohol Use?: No Pt feels they are or have been: No Immunizations Up To Date Tetanus Booster (TDap): Less than 5yrs PED Vaccines UTD: Yes First/Initial COVID19 Vaccinat: DECLINED Second COVID19 Vaccination Lm: DECLINED Third COVID19 Vaccination Date: DECLINED Seasonal Allergies Seasonal Allergies: No Past Medical History Surgery/Hospitalization HX: SURGERY HX APPY, GALLBLADDER, HYSTERECTOMY, CARDIAC STENTS, COLON CANCER, CHRONIC PE HX, CARDIOMEGALY, CAD, MITRAL AND TRICUSPID VALVE INSUFF, GOAPL, HTN, MORBID OBESITY, GERD, CHRONIC UTI, ANGINA Surgeries: Yes Appendectomy, Cardiac, Coronary Stent, Gallbladder, Hysterectomy, Orthopedic, Thyroidectomy Respiratory: Yes (HAS CPAP--DOES NOT USE ON REGULAR BASIS; P.E. X2) Asthma, Pulmonary Embolism, Sleep Apnea Currently Using CPAP: No Currently Using BIPAP: No Cardiac: Yes (P.E. 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 Sexually Transmitted Disease: No HIV/AIDS: No Genitourinary: Yes Bladder Infection, Kidney Stones Gastrointestinal: Yes (S/P GENI) Gastroesophageal Reflux, Chronic Constipation, Gall Bladder Disease Musculoskeletal: Yes Degenerate Disk Disease, Arthritis, Back Injury, Chronic Back Pain, Spasms Endocrine: Yes (MORBID OBESITY; THYROIDECTOMY) Hypothyroidsim HEENT: Yes Loss of Vision: Bilateral Hearing Impairment: Denies Cancer: No Colon Psychosocial: No Depression Integumentary: No Blood Disorders: Yes (BLOOD CLOTS-DVT/P.E.'S) Adverse Reaction/Blood Tranf: No Family Medical History Arthritis G8 SISTER Cardiovascular disease 03 FATHER Colon cancer 03 MOTHER Completed stroke 03 MOTHER Hypertension 03 MOTHER G8 BROTHER Myocardial infarction 03 MOTHER Thyroid disease G8 SISTER PT WELL KNOWN TO THIS ER, WELL MULTIPLE OTHER ER'S AND URGENT CARES IN THE AREA--[place] AND [facility], AND FREQUENTS MULTIPLE PROVIDERS AND HAS RECEIVED MULTITUDE OF RX'S FOR NARCOTICS Physical Exam Vital Signs Vital Signs - First Documented 04/21/22 17:41 Temp 36.4 Pulse 64 Resp 28 B/P (MAP) 132/101 (111) Pulse Ox 96 O2 Delivery Room Air Capillary Refill : Less Than 3 Seconds Height, Weight, BMI Height: 5'2.00" Weight: 297lbs. 8.0oz. [id number]; 53.00 BMI Method:Stated General Appearance: WD/WN, no apparent distress, obese (MORBIDLY OBESE. ), other (DOES NOT APPEAR TO BE IN ANY DISCOMFORT OR DISTRESS. LAYING ON LEFT SIDE. ) HEENT: PERRL/EOMI, normal ENT inspection Neck: non-tender, full range of motion, supple, normal inspection Respiratory: normal breath sounds, no respiratory distress, no accessory muscle use Cardiovascular: regular rate, rhythm, no murmur Gastrointestinal: non tender, soft Back: no CVA tenderness Extremities: normal inspection, normal capillary refill Neurologic/Psychiatric: medical center representative II-XII nml as tested, alert, normal mood/affect, oriented x 3; No abnormal cerebellar tests, No abnormal medical center representative II-XII, No abnormal gait, No aphasia, No EOM palsy, No facial droop, No motor weakness; other (SUBJECTIVE DECREASED SENSATION TO LEFT MID CHEEK, TO LIGHT TOUCH. DOES HAVE SENSATION TO DEEPER TOUCH/PRESSURE. NO MOTOR DEFICITS. TONGUE IS MIDLINE. ) Crainal Nerves: normal hearing, normal speech, PERRL Coordination/Gait: normal finger to nose, normal gait Motor/Sensory: no motor deficit, no sensory deficit, no pronator drift Skin: normal color, warm/dry Stroke Onset of Symptoms Onset of Symptoms: Yes Symptoms onset unknown: No NIH Stroke Scale Assessment Level of Consciousness: 0=Alert (0), Level of Consciousness-Questions: 0=Answers both month/age (0), LOC Commands: 0=Performs both tasks (0), Gaze: Normal (0), Visual Denis: 0=No visual loss (0), Facial Movement (Facial Paresis): 0=Normal symmetrical mnt (0), Motor Function-Arms Right: 0=No drift (0), Motor Function-Arms Left: 0=No drift (0), Motor Function-Legs Right: 0=No drift (0), Motor Function-Legs Left: 0=No drift (0), Limb Ataxia: 0=Absent (0), Sensory: 1=Mild to Moderate loss VERY MILD DECREASED SENSATION TO SMALL PART OF LEFT CHEEK, WITHOUT MOTOR DEFICITS. (1), Best Language: 0=No aphasia (0), Dysarthria: 0=Normal (0), Extinction & Inattention: 0=No abnormality (0), Total: 1 Stroke Thrombolytic Exclusion Age 18 or Over: Yes Acute intenal hemorrhage: No History of CVA: No Uncontrolled Coagulation Defec: No Intracranial Hemorrhage: No Severe Hypertension: No GI or Bleed: No Subarachnoid Hemorrhage: No Intracranial Neoplasm/Aneurysm: No Oral Anticoagulants: Yes Surgery or Trauma: No Puncture of Non-Compressible V: No Recent CPR: No Diabetic Hemorrhagic Retinopat: No Organ Biopsy: No Recent Obstetric Delivery: No Glucose: No Significant Hepatic Dysfunctio: No NIH Stoke Scale >22: No Bacterial Endocarditis: No Pericarditis: No Improving Symptoms: Yes Platelets: No TPA Contraindication: No IV - TPa Received IV - TPa Procedure Performed?: No (SYMPTOMS ARE VERY MINOR AND ARE IMPROVING) Progress/Results/Core Measures Results/Orders Lab Results Laboratory Tests Test 04/21/22 17:53 04/21/22 18:15 04/21/22 18:25 04/21/22 18:52 Range/Units Glucometer 157 H 70-110 MG/DL White Blood Count 8.6 4.3-11.0 10^3/uL Red Blood Count 4.15 3.80-5.11 10^6/uL Hemoglobin 12.2 11.5-16.0 g/dL Hematocrit 39 35-52 % Mean Corpuscular Volume 93 80-99 fL Mean Corpuscular Hemoglobin 29 25-34 pg Mean Corpuscular Hemoglobin Concent 32 32-36 g/dL Red Cell Distribution Width 14.9 H 10.0-14.5 % Platelet Count 183 130-400 10^3/uL Mean Platelet Volume 10.7 9.0-12.2 fL Immature Granulocyte % (Auto) 0 % Neutrophils (%) (Auto) 62 42-75 % Lymphocytes (%) (Auto) 28 12-44 % Monocytes (%) (Auto) 8 0-12 % Eosinophils (%) (Auto) 1 0-10 % Basophils (%) (Auto) 0 0-10 % Neutrophils # (Auto) 5.3 1.8-7.8 10^3/uL Lymphocytes # (Auto) 2.4 1.0-4.0 10^3/uL Monocytes # (Auto) 0.7 0.0-1.0 10^3/uL Eosinophils # (Auto) 0.1 0.0-0.3 10^3/uL Basophils # (Auto) 0.0 0.0-0.1 10^3/uL Immature Granulocyte # (Auto) 0.0 0.0-0.1 10^3/uL Erythrocyte Sedimentation Rate 66 H 0-30 MM/HR Prothrombin Time 15.8 H 12.2-14.7 SEC INR Comment 1.2 0.8-1.4 Activated Partial Thromboplast Time 29 24-35 SEC D-Dimer 0.57 H 0.00-0.49 UG/ML Sodium Level 141 135-145 MMOL/L Potassium Level 4.3 3.6-5.0 MMOL/L Chloride Level 107 98-107 MMOL/L Carbon Dioxide Level 24 21-32 MMOL/L Anion Gap 10 5-14 MMOL/L Blood Urea Nitrogen 11 7-18 MG/DL Creatinine 0.76 0.60-1.30 MG/DL Estimat Glomerular Filtration Rate 87 BUN/Creatinine Ratio 14 Glucose Level 142 H 70-105 MG/DL Calcium Level 8.8 8.5-10.1 MG/DL Corrected Calcium 8.9 8.5-10.1 MG/DL Magnesium Level 2.0 1.6-2.4 MG/DL Total Bilirubin 0.2 0.1-1.0 MG/DL Aspartate Amino Transf (AST/SGOT) 26 5-34 U/L Alanine Aminotransferase (ALT/SGPT) 25 0-55 U/L Alkaline Phosphatase 89 40-136 U/L Myoglobin 36.2 10.0-92.0 NG/ML Troponin I < 0.028 <0.028 NG/ML C-Reactive Protein High Sensitivity 1.72 H 0.00-0.50 MG/DL Total Protein 7.6 6.4-8.2 GM/DL Albumin 3.9 3.2-4.5 GM/DL Procalcitonin 0.06 <0.10 NG/ML TSH [place] Testing 1.76 0.35-4.94 UIU/ML Influenza Type A (RT-PCR) Not Detected Not Detecte Influenza Type B (RT-PCR) Not Detected Not Detecte SARS-CoV-2 RNA (RT-PCR) Not Detected Not Detecte Urine Color YELLOW Urine Clarity CLEAR Urine pH 6.0 5-9 Urine Specific [place] >=1.030 1.016-1.022 Urine Protein NEGATIVE NEGATIVE Urine Glucose (UA) NEGATIVE NEGATIVE Urine Ketones NEGATIVE NEGATIVE Urine Nitrite NEGATIVE NEGATIVE Urine Bilirubin NEGATIVE NEGATIVE Urine Urobilinogen 0.2 < = 1.0 MG/DL Urine Leukocyte Esterase NEGATIVE NEGATIVE Urine RBC (Auto) NEGATIVE NEGATIVE Urine RBC NONE /HPF Urine WBC 2-5 /HPF Urine Squamous Epithelial Cells 2-5 /HPF Urine Renal Epithelial Cells NONE /HPF Urine Crystals NONE /LPF Urine Bacteria LARGE H /HPF Urine Casts NONE /LPF Urine Mucus NEGATIVE /LPF Urine Culture Indicated YES Urine Opiates Screen NEGATIVE NEGATIVE Urine Oxycodone Screen NEGATIVE NEGATIVE Urine Methadone Screen NEGATIVE NEGATIVE Urine Propoxyphene Screen NEGATIVE NEGATIVE Urine Barbiturates Screen NEGATIVE NEGATIVE Ur Tricyclic Antidepressants Screen NEGATIVE NEGATIVE Urine Phencyclidine Screen NEGATIVE NEGATIVE Urine Amphetamines Screen NEGATIVE NEGATIVE Urine Methamphetamines Screen NEGATIVE NEGATIVE Urine Benzodiazepines Screen NEGATIVE NEGATIVE Urine Cocaine Screen NEGATIVE NEGATIVE Urine Cannabinoids Screen NEGATIVE NEGATIVE My Orders Orders - NORIS DOHERTY DO Ed Iv/Invasive Line Start (04/21/22 18:02) Ekg Tracing (04/21/22 18:02) O2 (04/21/22 18:02) Monitor-Rhythm Ecg Trace Only (04/21/22 18:02) Cbc With Automated Diff (04/21/22 18:02) Protime With Inr (04/21/22 18:02) Partial Thromboplastin Time (04/21/22 18:02) Comprehensive Metabolic Panel (04/21/22 18:02) Fibrin Degradation Products (04/21/22 18:) Troponin I Nelly (04/21/22 18:02) Ua Culture If Indicated (04/21/22 18:02) Chest 1 View, Ap/Pa Only (04/21/22 18:02) Catheter(Urinary) Insert & Ass 03,15 (04/21/22 18:02) Ekg Tracing (04/21/22 18:02) Nothing By Mouth (04/21/22 Dinner) Accucheck Stat ONCE (04/21/22 18:02) Ed Iv/Invasive Line Start (04/21/22 18:02) Ed Iv/Invasive Line Start (04/21/22 18:02) Vital Signs Stroke Patient Q15M (04/21/22 18:02) Ct Head Wo-R/O Stroke (04/21/22 18:02) O2 (04/21/22 18:02) Intake & Output 06,14, (04/21/22 18:02) Dysphagia Screening Tool Q10MX1 (04/21/22 18:02) Lipid Panel (04/22/22 06:00) Procalcitonin (Pct) (04/21/22 18:02) Hs C Reactive Protein (04/21/22 18:02) Erythrocyte Sedimentation Rate (04/21/22 18:02) Covid 19 Inhouse Test (04/21/22 18:02) Drug Screen Stat (Urine) (04/21/22 18:02) Magnesium (04/21/22 18:02) Thyroid Analyzer (04/21/22 18:02) Myoglobin Serum (04/21/22 18:02) Lidocaine 2% (Urojet) (Xylocaine Urojet) (04/21/22 18:15) Influenza A And B By Pcr (04/21/22 18:02) Isolation Central Supply Req (04/21/22 18:02) Ct Angio Head/Neck (04/21/22 18:45) Iohexol Injection (Omnipaque 350 Mg/Ml 1 (04/21/22 19:15) Received Contrast (Hold Metformin- Contr (04/21/22 19:15) Ns (Ivpb) (Sodium Chloride 0.9% Ivpb Bag (04/21/22 19:15) Urine Culture (04/21/22 18:52) Medications Given in ED Current Medications Medications Dose Ordered Sig/Marcio Route Start Time Stop Time Status Last Admin Dose Admin Iohexol 75 ml ONCE ONCE IV 04/21/22 19:15 04/21/22 19:16 DC 04/21/22 19:27 75 ML Sodium Chloride 100 ml ONCE ONCE IV 04/21/22 19:15 04/21/22 19:16 DC 04/21/22 19:28 70 ML Vital Signs/I&O 04/21/22 04/21/22 17:41 21:00 Temp 36.4 Pulse 64 68 Resp 28 B/P (MAP) 132/101 (111) 150/90 Pulse Ox 96 97 O2 Delivery Room Air Room Air Blood Pressure Mean: 111 FSBG Bedside Testing Finger Stick Blood Glucose: 157 Progress Progress Note : Progress Note PLACED IN ISOLATION ROOM PPE WORN COVID AND FLU TESTING DONE STROKE PROTOCOL INITIATED. PT IS ABLE TO WALK A FEW STEPS ON HER OWN WITHOUT DIFFICULTY. PT IS ABLE TO GET HERSELF IN AND OUT OF WHEELCHAIR AND ONTO AND OFF OF ER CART ON HER OWN AFTER REVIEWING ALL TESTS, PT STATES "IT'S JUST MY NORMAL MIGRAINE" "THEY TOLD ME I NEEDED TO GET CHECKED WHENEVER I HAD ONE-JUST IN CASE" PT DECLINES ANY MEDICATIONS DURING ER STAY. SYMPTOMS ARE IMPROVING AT TIME OF DISMISSAL Initial ECG Impression Date: Apr 21, 2022 Initial ECG Impression Time: 18:22 Initial ECG Rate: 63 Initial ECG Rhythm: Normal Sinus Initial ECG Comparisson: Unchanged Diagnostic Imaging Comments CT HEAD--NO ACUTE PROCESS, PER RADIOLOGIST VIA PHONE AT 1820 AND VIA DICTATED REPORT AT 1829 FINDINGS: The ventricles and sulci are normal. No abnormal attenuation of brain parenchyma is present. No acute intracranial hemorrhage or abnormal extra-axial fluid collections are present. No hyperdense vessel. The calvarium is intact. The mastoid air cells are clear. The visualized paranasal sinuses are clear. The orbits are normal. IMPRESSION: 1. No acute intracranial abnormality. CXR--PER RADIOLOGIST REPORT AT 1844 FINDINGS: There is cardiomegaly. A loop recorder overlies the left hemithorax. There is no pleural effusion, pneumothorax or pneumonia. The mediastinum is unremarkable. IMPRESSION: No acute cardiopulmonary abnormality. CT ANGIOGRAM HEAD/NECK--PER RADIOLOGIST REPORT AT 2046 FINDINGS: The lung apices demonstrate a 6 mm nodule in the right upper lobe. There is no pneumothorax. There is a normal branching pattern of the thoracic aorta. There are postsurgical changes in the cervical spine. The common carotid arteries are widely patent. Right vertebral artery is widely patent. Left vertebral artery is tiny. It does, however, appear to be patent. The common carotid arteries, internal carotid arteries and vertebral arteries are without evidence of dissection, stenosis or occlusion. The parotid, submandibular, and thyroid glands are normal in appearance. There is either atrophy or surgical removal of the left lobe of the thyroid. There is no pathologically enlarged adenopathy or mass in the neck. The prevertebral soft tissues are grossly within normal limits. The ventricles and sulci are within normal limits. There is no hydrocephalus. There is no midline shift. There is no mass, hemorrhage or extra-axial fluid collection. There are no proximal intracranial branch occlusions, vascular malformations or aneurysms. Specifically, there is no large vessel occlusion. The sinuses and mastoid air cells are clear. The globes and intraorbital structures are unremarkable. IMPRESSION: Unremarkable CTA head and neck A 6 mm nodule in the right lung apex. While this may reflect noncalcified granuloma, the possibility of early neoplasm cannot be excluded. Recommend clinical correlation and short interval follow-up imaging to ensure stability. Degenerative and postsurgical changes in the cervical spine Surgically absent left lobe of the thyroid. Reviewed: Reviewed by Me, Discussed w/Radiologist Departure Impression Primary Impression: LEFT FACIAL PARESTHESIAS Additional Impression: TYPICAL MIGRAINE SYMPTOMS Disposition: 01 HOME, SELF-CARE Condition: Improved Departure-Patient Inst. Decision time for Depature: 20:52 Referrals: JOSE MARTIN MOLINA APRN (PCP) Primary Care Physician NO,LOCAL PHYSICIAN (Family) Primary Care Physician Patient Instructions: Paresthesia (DC), Migraines (DC) Add. Discharge Instructions: HOME, REST TAKE YOUR REGULAR MEDICATIONS PRESCRIBED TYLENOL AND MOTRIN AND EXCEDRIN MIGRAINE NEEDED FOR HEADACHE RETURN TO ER IF SYMPTOMS WORSEN All discharge instructions reviewed with patient and/or family. Voiced understanding. NORIS DOHERTY DO Apr 21, 2022 18:15
[2022-04-21 18:22] LABS: BASOPHILS % (AUTO) 0 % (0-10); EOSINOPHILS # (AUTO) 0.1 10^3/uL (0.0-0.3); EOSINOPHILS % (AUTO) 1 % (0-10); HEMATOCRIT 39 % (35-52); HEMOGLOBIN 12.2 g/dL (11.5-16.0); LYMPHOCYTES # (AUTO) 2.4 10^3/uL (1.0-4.0); LYMPHOCYTES % (AUTO) 28 % (12-44); MEAN CORPUSCULAR HEMOGLOBIN 29 pg (25-34); MEAN CORPUSCULAR HGB CONC 32 g/dL (32-36); MEAN CORPUSCULAR VOLUME 93 fL (80-99); MEAN PLATELET VOLUME 10.7 fL (9.0-12.2); MONOCYTES # (AUTO) 0.7 10^3/uL (0.0-1.0); MONOCYTES % (AUTO) 8 % (0-12); NEUTROPHILS # (AUTO) 5.3 10^3/uL (1.8-7.8); NEUTROPHILS % (AUTO) 62 % (42-75); PLATELET COUNT 183 10^3/uL (130-400); WHITE BLOOD COUNT 8.6 10^3/uL (4.3-11.0)
--- NOTE | 2022-04-21 18:26 | Diagnostic Imaging Report ---
EXAMINATION: CT head without contrast. TECHNIQUE: Multiple contiguous axial images were obtained through the brain without the use of intravenous contrast. All CT scans use one or more of the following dose optimizing techniques: automated exposure control, MA and/or KvP adjustment based on patient size and exam type or iterative reconstruction. HISTORY: Numbness and tingling COMPARISON: 03/10/2022 FINDINGS: The ventricles and sulci are normal. No abnormal attenuation of brain parenchyma is present. No acute intracranial hemorrhage or abnormal extra-axial fluid collections are present. No hyperdense vessel. The calvarium is intact. The mastoid air cells are clear. The visualized paranasal sinuses are clear. The orbits are normal. IMPRESSION: 1. No acute intracranial abnormality. Results communicated to Dr. Herrera by Dr. Urban Martinez at 6:20 PM on 04/21/2022. Dictated by: Dictated on workstation # [id number]
[2022-04-21 18:34] LABS: ALBUMIN 3.9 GM/DL (3.2-4.5)
[2022-04-21 18:35] LABS: CHLORIDE 107 MMOL/L (98-107); POTASSIUM 4.3 MMOL/L (3.6-5.0); SODIUM 141 MMOL/L (135-145)
[2022-04-21 18:36] LABS: CALCIUM 8.8 MG/DL (8.5-10.1)
[2022-04-21 18:37] LABS: GLUCOSE 142 MG/DL (70-105); TOTAL PROTEIN 7.6 GM/DL (6.4-8.2)
[2022-04-21 18:38] LABS: CARBON DIOXIDE 24 MMOL/L (21-32)
[2022-04-21 18:39] LABS: BILIRUBIN,TOTAL 0.2 MG/DL (0.1-1.0)
[2022-04-21 18:41] LABS: ALKALINE PHOSPHATASE 89 U/L (40-136); CREATININE SERUM 0.76 MG/DL (0.60-1.30); FIBRIN DEGRADATION PRODUCTS 0.57 UG/ML (0.00-0.49); GFR ESTIMATED 87; INR 1.2 (0.8-1.4); PROTHROMBIN TIME PATIENT 15.8 SEC (12.2-14.7)
--- NOTE | 2022-04-21 18:41 | Diagnostic Imaging Report ---
INDICATION: Stroke. COMPARISON made with prior exam of 02/09/2022. FINDINGS: There is cardiomegaly. A loop recorder overlies the left hemithorax. There is no pleural effusion, pneumothorax or pneumonia. The mediastinum is unremarkable. IMPRESSION: No acute cardiopulmonary abnormality. Cardiomegaly. Dictated by: Dictated on workstation # [id number]
[2022-04-21 18:42] LABS: BUN/CREATININE RATIO 14; ERYTHROCYTE SEDIMENTATION RATE 66 MM/HR (0-30)
[2022-04-21 18:44] LABS: ALANINE AMINOTRANSFERASE 25 U/L (0-55)
[2022-04-21 19:03] LABS: TSH (THYROID ANALYZER) 1.76 UIU/ML (0.35-4.94)
[2022-04-21 19:06] LABS: BILIRUBIN,URINE NEGATIVE (NEGATIVE); CLARITY,URINE CLEAR; COLOR,URINE YELLOW; GLUCOSE, URINE (UA) NEGATIVE (NEGATIVE); KETONES,URINE NEGATIVE (NEGATIVE); LEUKOCYTE ESTERASE ,URINE NEGATIVE (NEGATIVE); NITRITE,URINE NEGATIVE (NEGATIVE); PROTEIN,URINE NEGATIVE (NEGATIVE)
[2022-04-21] MEDS ORDERED: HOLD METFORMIN - RECEIVED CONTRAST 20 ML VIAL IV SCH (19:15)
[2022-04-21] MEDS ORDERED: NS 100 ML (IVPB) BAG IV ONE (19:15)
[2022-04-21] MEDS ORDERED: IOHEXOL 350 MG/ML 100 ML (OMNIPAQUE 350) VIAL IV ONE (19:15)
[2022-04-21 19:17] LABS: BACTERIA,URINE LARGE /HPF
[2022-04-21 19:31] LABS: AMPHETAMINE SCREEN, URINE NEGATIVE (NEGATIVE); BARBITURATE SCREEN URINE NEGATIVE (NEGATIVE); BENZODIAZEPINES SCREEN URINE NEGATIVE (NEGATIVE); CANNABINOID SCREEN, URINE NEGATIVE (NEGATIVE); COCAINE SCREEN URINE NEGATIVE (NEGATIVE); METHADONE STAT NEGATIVE (NEGATIVE); OPIATE SCREEN URINE NEGATIVE (NEGATIVE); OXYCODONE STAT NEGATIVE (NEGATIVE); PROPOXYPHENE STAT NEGATIVE (NEGATIVE); TRICYCLIC ANTIDEPRESSANTS SCRE NEGATIVE (NEGATIVE)
--- NOTE | 2022-04-21 19:43 | Diagnostic Imaging Report ---
PROCEDURE: CT angiography of the head and CT angiography of the neck with and without contrast. TECHNIQUE: Contiguous noncontrast images were obtained from the skull base through the vertex. After intravenous contrast administration, helical CT angiography of the neck was performed. Source data was reformatted into 3D MIP projections. Delayed post contrast acquisition was also obtained. Auto Exposure Controls were utilized during the CT exam to meet ALARA standards for radiation dose reduction. INDICATION: Facial paresthesias and headache. FINDINGS: The lung apices demonstrate a 6 mm nodule in the right upper lobe. There is no pneumothorax. There is a normal branching pattern of the thoracic aorta. There are postsurgical changes in the cervical spine. The common carotid arteries are widely patent. Right vertebral artery is widely patent. Left vertebral artery is tiny. It does, however, appear to be patent. The common carotid arteries, internal carotid arteries and vertebral arteries are without evidence of dissection, stenosis or occlusion. The parotid, submandibular, and thyroid glands are normal in appearance. There is either atrophy or surgical removal of the left lobe of the thyroid. There is no pathologically enlarged adenopathy or mass in the neck. The prevertebral soft tissues are grossly within normal limits. The ventricles and sulci are within normal limits. There is no hydrocephalus. There is no midline shift. There is no mass, hemorrhage or extra-axial fluid collection. There are no proximal intracranial branch occlusions, vascular malformations or aneurysms. Specifically, there is no large vessel occlusion. The sinuses and mastoid air cells are clear. The globes and intraorbital structures are unremarkable. IMPRESSION: Unremarkable CTA head and neck A 6 mm nodule in the right lung apex. While this may reflect noncalcified granuloma, the possibility of early neoplasm cannot be excluded. Recommend clinical correlation and short interval follow-up imaging to ensure stability. Degenerative and postsurgical changes in the cervical spine Surgically absent left lobe of the thyroid. Dictated by: Dictated on workstation # [id number]
[2022-04-21 21:00] VITALS: BP 150/90
== END 2022-04-21 21:06 | disposition home or self-care (01) ==
LOC: EDUNIT# 17:34 → ER 17:36
DX: R20.0 Anesthesia of skin (principal); R51.9 Headache, unspecified; E66.01 Morbid (severe) obesity due to excess calories; Z68.43 Body mass index [BMI] 50.0-59.9, adult; Z20.822 Contact with and (suspected) exposure to COVID-19; Z79.01 Long term (current) use of anticoagulants
CPT/HCPCS: 36415; 70450; 70496; 70498; 71045; 80053; 80306; 81000; 82947; 83735; 83874; 84145; 84443; 84484; 85025; 85379; 85610; 85652; 85730; 86141; 87088; 87636; 93005; 93041

== ENCOUNTER 2022-06-07 16:30 | Emergency (ER) | payer MEDICARE, MEDICAID ==
[~2022-06-07] VITALS: Ht 157 cm; Wt 133.0 kg
--- NOTE | 2022-06-07 16:33 | ED Chest Pain ---
General Stated Complaint: CHEST PAIN History of Present Illness Date Seen by Provider: Jun 07, 2022 Time Seen by Provider: 16:33 Initial Comments 66 yr F with PMH of obesity/ CAD with 3 stents placed a few years ago/ HTN/ GERD/ OA/ Aortic Stenosis, is here with c/o chest pain which has been going on for one hour prior to coming to the ER. Chest pain is left sided and radiating down her left arm. Pt took 2 sublingual nitro prior to coming to the ER which did not help. Pt has associated nausea. Denies fever, URI symptoms, palp itations, shortness of breath, abdominal pain, diarrhea, headache, dizziness. Allergies and Home Medications Allergies Coded Allergies: methylprednisolone (Verified Allergy, Mild, 11/05/18) Penicillins (Unverified Allergy, Unknown, 11/05/18) atorvastatin (Verified Allergy, Unknown, 11/05/18) isosorbide (Verified Allergy, Unknown, 11/05/18) ketorolac (Verified Allergy, Unknown, ITCHING, 11/05/18) promethazine (Unverified Allergy, Unknown, hallucinations, 11/05/18) venom-honey bee (Unverified Allergy, Unknown, 11/05/18) Uncoded Allergies: TAPE (Allergy, Unknown, 08/16/13) Patient Home Medication List Home Medication List Reviewed: Yes Acetaminophen (Acetaminophen) 500 Mg Tablet, 500-1,000 MG PO Q8H PRN for PAIN- MILD (1-4), (Reported) Entered as Reported by: YARA JUAREZ on 09/04/15 1558 Aspirin (Aspirin EC) 81 Mg Tablet.dr, 81 MG PO DAILY, (Reported) Entered as Reported by: RAAD LANDRY on 11/22/21 1004 Diltiazem HCl (Diltiazem 24Hr ER) 120 Mg Cap.er.24h, 120 MG PO BID Prescribed by: NATALIYA ROBERSON JR, MD on 11/22/21 1219 Ezetimibe (Ezetimibe) 10 Mg Tablet, 10 MG PO HS Prescribed by: NATALIYA ROBERSON JR, MD on 11/22/21 1219 Levothyroxine Sodium (Levothyroxine Sodium) 150 Mcg Tablet, 150 MCG PO HS, (Reported) Entered as Reported by: YARA JUAREZ on 09/04/15 1524 Nitroglycerin (Nitroglycerin) 0.4 Mg Tab.subl, 0.4 MG SL UD PRN for CHEST PAIN, (Reported) Entered as Reported by: RAAD LANDRY on 11/22/21 1004 Nitroglycerin (Nitro-Dur 0.6 MG/HR) 0.6 Mg/Hour Patch.td24, 0.6 MG TD DAILY PRN for CHEST PAIN (ANGINA), (Reported) Entered as Reported by: RAAD LANDRY on 11/22/21 1004 Omeprazole (Omeprazole) 40 Mg Capsule.dr, 40 MG PO HS, (Reported) Entered as Reported by: RAAD LANDRY on 11/22/21 1005 Povidone (Soothe Hydration) 1.25 % Drops, 1-2 DROPS OU UD PRN for DRY EYES, (Reported) Entered as Reported by: RAAD LANDRY on 09/13/21 1220 Rosuvastatin Calcium (Rosuvastatin Calcium) 20 Mg Tablet, 40 MG PO HS Prescribed by: NATALIYA ROBERSON JR, MD on 11/22/21 1219 Sulfamethoxazole/Trimethoprim (Bactrim Ds Tablet) 1 Each Tablet, 1 EACH PO BID Prescribed by: ANH GROVER on 02/01/22 1841 Warfarin Sodium (Warfarin Sodium) 5 Mg Tablet, 5 MG PO WED,FR,SAT @HS, (Reported) Entered as Reported by: YARA JUAREZ on 09/04/15 1542 Warfarin Sodium (Warfarin Sodium) 5 Mg Tablet, 7.5 MG PO MARIE,MO,TU,TH @HS, (Reported) Entered as Reported by: RAAD LANDRY on 01/30/20 1138 Review of Systems Review of Systems Constitutional: no symptoms reported EENTM: No Symptoms Reported Respiratory: No Symptoms Reported Cardiovascular: Chest Pain Gastrointestinal: Nausea Genitourinary: No Symptoms Reported Musculoskeletal: no symptoms reported Skin: no symptoms reported Psychiatric/Neurological: No Symptoms Reported Endocrine: No Symptoms Reported Hematologic/Lymphatic: No Symptoms Reported Physical Exam Vital Signs Vital Signs - First Documented 06/07/22 16:58 Temp 35.9 Pulse 68 Resp 20 B/P (MAP) 130/67 (88) Pulse Ox 97 O2 Delivery Room Air Capillary Refill : Height, Weight, BMI Height: '" Weight: lbs. oz. 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 Norm as Tested Skin: Normal Color, Cool Progress/Results/Core Measures Results/Orders Lab Results Laboratory Tests Test 06/07/22 16:45 06/07/22 17:43 Range/Units White Blood Count 7.4 4.3-11.0 10^3/uL Red Blood Count 4.42 3.80-5.11 10^6/uL Hemoglobin 13.0 11.5-16.0 g/dL Hematocrit 40 35-52 % Mean Corpuscular Volume 91 80-99 fL Mean Corpuscular Hemoglobin 29 25-34 pg Mean Corpuscular Hemoglobin Concent 32 32-36 g/dL Red Cell Distribution Width 14.8 H 10.0-14.5 % Platelet Count 201 130-400 10^3/uL Mean Platelet Volume 10.5 9.0-12.2 fL Immature Granulocyte % (Auto) 0 % Neutrophils (%) (Auto) 66 42-75 % Lymphocytes (%) (Auto) 27 12-44 % Monocytes (%) (Auto) 6 0-12 % Eosinophils (%) (Auto) 1 0-10 % Basophils (%) (Auto) 0 0-10 % Neutrophils # (Auto) 4.9 1.8-7.8 10^3/uL Lymphocytes # (Auto) 2.0 1.0-4.0 10^3/uL Monocytes # (Auto) 0.4 0.0-1.0 10^3/uL Eosinophils # (Auto) 0.1 0.0-0.3 10^3/uL Basophils # (Auto) 0.0 0.0-0.1 10^3/uL Immature Granulocyte # (Auto) 0.0 0.0-0.1 10^3/uL Prothrombin Time 14.8 H 12.2-14.7 SEC INR Comment 1.1 0.8-1.4 Activated Partial Thromboplast Time 26 24-35 SEC D-Dimer 0.37 0.00-0.49 UG/ML Sodium Level 140 135-145 MMOL/L Potassium Level 3.7 3.6-5.0 MMOL/L Chloride Level 100 98-107 MMOL/L Carbon Dioxide Level 26 21-32 MMOL/L Anion Gap 14 5-14 MMOL/L Blood Urea Nitrogen 12 7-18 MG/DL Creatinine 0.79 0.60-1.30 MG/DL Estimat Glomerular Filtration Rate 83 BUN/Creatinine Ratio 15 Glucose Level 181 H 70-105 MG/DL Calcium Level 9.4 8.5-10.1 MG/DL Corrected Calcium 9.3 8.5-10.1 MG/DL Magnesium Level 2.0 1.6-2.4 MG/DL Total Bilirubin 0.2 0.1-1.0 MG/DL Aspartate Amino Transf (AST/SGOT) 18 5-34 U/L Alanine Aminotransferase (ALT/SGPT) 17 0-55 U/L Alkaline Phosphatase 112 40-136 U/L Myoglobin 30.6 <58.0 NG/ML Troponin I < 0.30 < 0.30 <0.30 NG/ML Pro-B-Type Natriuretic Peptide 75.2 <125.0 PG/ML Total Protein 7.6 6.4-8.2 GM/DL Albumin 4.1 3.2-4.5 GM/DL Influenza Type A (RT-PCR) Not Detected Not Detecte Influenza Type B (RT-PCR) Not Detected Not Detecte SARS-CoV-2 RNA (RT-PCR) Not Detected Not Detecte My Orders Orders - DENIZ ELDRIDGE MD Cbc With Automated Diff (06/07/22 16:33) Magnesium (06/07/22 16:33) Chest 1 View Ap/Pa Only (06/07/22 16:33) Ekg Tracing (06/07/22 16:33) Comprehensive Metabolic Panel (06/07/22 16:33) Protime With Inr (06/07/22 16:33) Partial Thromboplastin Time (06/07/22 16:33) Monitor-Rhythm Ecg Trace Only (06/07/22 16:33) Ed Iv/Invasive Line Start (06/07/22 16:33) Fibrin Degradation Products (06/07/22 16:33) Troponin I Fs (06/07/22 16:33) Probnp Fs (06/07/22 16:33) Myoglobin Serum (06/07/22 16:41) O2 (06/07/22 16:41) Lipid Panel (06/08/22 06:00) Aspirin Chewable Tablet (Baby Aspirin Ch (06/07/22 16:45) Nitroglycerin 0.4 Mg Btl 25's (Nitrostat (06/07/22 16:45) Morphine Injection (Morphine Injection (06/07/22 16:41) Ed Iv/Invasive Line Start (06/07/22 16:41) Drug Screen Stat (Urine) (06/07/22 16:41) Ua Culture If Indicated (06/07/22 16:41) Ondansetron Injection (Zofran Injectio (06/07/22 17:00) Covid 19 Inhouse Test (06/07/22 17:32) Influenza A And B By Pcr (06/07/22 17:32) Troponin I Fs (06/07/22 17:43) Medications Given in ED Current Medications Medications Dose Ordered Sig/Marcio Route Start Time Stop Time Status Last Admin Dose Admin Aspirin 324 mg ONCE ONCE PO 06/07/22 16:45 06/07/22 16:46 DC 06/07/22 16:48 324 MG Nitroglycerin 0.4 mg UD PRN SL 06/07/22 16:45 06/07/22 16:48 0.4 MG Ondansetron HCl 4 mg ONCE ONCE IVP 06/07/22 17:00 06/07/22 17:01 DC 06/07/22 16:51 4 MG Vital Signs/I&O 06/07/22 16:58 Temp 35.9 Pulse 68 Resp 20 B/P (MAP) 130/67 (88) Pulse Ox 97 O2 Delivery Room Air Progress Progress Note : Progress Note 1. ACS RULE OUT: - EKG/ Troponin: non-ischemic - CXR: no acute changes but suspected possible right sided infiltrate. - Since pt has had a normal lung exam, and absolutely no symptoms of pneumonia such as fever, shortness of breath, right-sided chest pain, rhonchi, rales and syndrome, went on to do a COVID and flu test which was also negative, and no clinical findings of pneumonia seen. However since there is a suspicion by radiology, I have instructed the patient t call her PCP, if at all she develops any of the symptoms or any respiratory symptoms, for an antibiotic - CBC/ CMP/: unremarkable: normal WBC count - ASA 325mg STAT - s.l. nitrate x2 at home amd 1 in the ER - Morphine 1mg iv STAT in ER/ Zofran 4mg iv STAT -Patient has a cath scheduled for June 17. Advised patient to call her PCP and software sales consultant on Thursday for a follow-up appointment within the next 3 to 7 days. -Patient's symptoms have resolved in the ER and she no longer has chest pain. Work-up has otherwise been normal -The patient was seen in the ED, and treated appropriately to presentation at a specific point in time. Patient is informed that there is a possibility that disease and illness can evolve and change in acuity rapidly or slowly after patient is discharged from the ER. Precautionary advice given to the patient for immediate return to ER if symptoms worsen or do not resolve, and to seek emergency care sooner rather than later. Pt also advised on the importance of PCP follow up and compliance with management and follow up plan with PCP and/or specialist, as this is part of the management plan. Pt verbally expressed understanding. Diagnostic Imaging Diagonstic Imaging: Xray Plain Films/CT/US/NM/MRI: chest Comments NAME: OTONIEL DUNAWAY [facility] REC#: [id number] PT STATUS: REG ER : 1955 PHYSICIAN: DENIZ ELDRIDGE MD ADMIT DATE: 06/07/22/ER FS Draft Date of Exam:06/07/22 CHEST 1 VIEW AP/PA ONLY INDICATION: Chest pain. TECHNIQUE: Single view chest 5:09 PM. CORRELATION STUDY: 04/21/2022. FINDINGS: Heart size and mediastinum are enlarged and prominent. Loop recorder device projects over the left heart border. Lung chacon are hyperinflated. Minimal atelectasis suggested about the right lung base. IMPRESSION: Stable cardiac enlargement without overt failure. Suspect minimal infiltrate or atelectasis at the right lung base. Dictated on workstation # [id number] Dict: 06/07/22 1719 Trans: 06/07/22 1726 [facility] [id number] Interpreted by: AVERY,LATESHA K DO Electronically signed by: Departure Impression Primary Impression: Ruled out for myocardial infarction Disposition: HOME, SELF-CARE Condition: Improved Departure-Patient Inst. Patient Instructions: Heart Healthy Diet, Acid Reflux and GERD in Adults (DC), Chest Pain (DC), Angina (DC) Add. Discharge Instructions: -Patient has a cath scheduled for June 17. Advised patient to call her PCP and software sales consultant on Thursday for a follow-up appointment within the next 3 to 7 days. - Patient is informed that there is a possibility that disease and illness can evolve and change in acuity rapidly or slowly after patient is discharged from the ER. Precautionary advice given to the patient for immediate return to ER if symptoms worsen or do not resolve, and to seek emergency care sooner rather than later. Pt also advised on the importance of PCP follow up and compliance with management and follow up plan with PCP and/or specialist, as this is part of the management plan. Pt verbally expressed understanding. DEINZ ELDRIDGE MD Jun 07, 2022 16:33
[2022-06-07] MEDS ORDERED: morphine INJ 10 MG/ML 1ML (SYR OR VIAL) IVP STA (16:41)
[2022-06-07] MEDS ORDERED: ASPIRIN 81 MG CHEW (CHILDREN'S ASA) PO ONE (16:45)
[2022-06-07] MEDS ORDERED: NITROGLYCERIN 0.4 MG SL TABS BTL 25'S SL PRN (16:45)
[2022-06-07 16:46] LABS: BASOPHILS % (AUTO) 0 % (0-10); EOSINOPHILS # (AUTO) 0.1 10^3/uL (0.0-0.3); EOSINOPHILS % (AUTO) 1 % (0-10); HEMATOCRIT 40 % (35-52); LYMPHOCYTES % (AUTO) 27 % (12-44); MEAN CORPUSCULAR HEMOGLOBIN 29 pg (25-34); MEAN CORPUSCULAR HGB CONC 32 g/dL (32-36); MEAN CORPUSCULAR VOLUME 91 fL (80-99); MEAN PLATELET VOLUME 10.5 fL (9.0-12.2); MONOCYTES # (AUTO) 0.4 10^3/uL (0.0-1.0); MONOCYTES % (AUTO) 6 % (0-12); NEUTROPHILS # (AUTO) 4.9 10^3/uL (1.8-7.8); NEUTROPHILS % (AUTO) 66 % (42-75); PLATELET COUNT 201 10^3/uL (130-400); WHITE BLOOD COUNT 7.4 10^3/uL (4.3-11.0)
[2022-06-07 16:58] VITALS: BP 130/67
[2022-06-07] MEDS ORDERED: ONDANSETRON 4 MG/2 ML (SDV) Z0FRAN IVP ONE (17:00)
[2022-06-07 17:03] LABS: INR 1.1 (0.8-1.4); PROTHROMBIN TIME PATIENT 14.8 SEC (12.2-14.7)
[2022-06-07 17:06] LABS: POTASSIUM 3.7 MMOL/L (3.6-5.0)
[2022-06-07 17:07] LABS: ALBUMIN 4.1 GM/DL (3.2-4.5); BILIRUBIN,TOTAL 0.2 MG/DL (0.1-1.0); CALCIUM 9.4 MG/DL (8.5-10.1); CREATININE SERUM 0.79 MG/DL (0.60-1.30); TOTAL PROTEIN 7.6 GM/DL (6.4-8.2)
--- NOTE | 2022-06-07 17:26 | Diagnostic Imaging Report ---
INDICATION: Chest pain. TECHNIQUE: Single view chest 5:09 PM. CORRELATION STUDY: 04/21/2022. FINDINGS: Heart size and mediastinum are enlarged and prominent. Loop recorder device projects over the left heart border. Lung chacon are hyperinflated. Minimal atelectasis suggested about the right lung base. IMPRESSION: Stable cardiac enlargement without overt failure. Suspect minimal infiltrate or atelectasis at the right lung base. Dictated by: Dictated on workstation # [id number]
== END 2022-06-07 18:50 | disposition home or self-care (01) ==
LOC: EDUNIT# 16:30 → ER FS 16:33
DX: R07.89 Other chest pain (principal); E66.9 Obesity, unspecified; Z88.6 Allergy status to analgesic agent; Z68.43 Body mass index [BMI] 50.0-59.9, adult; Z95.5 Presence of coronary angioplasty implant and graft; Z20.822 Contact with and (suspected) exposure to COVID-19; Z28.310 Unvaccinated for COVID-19
CPT/HCPCS: 36415; 71045; 80053; 83735; 83874; 83880; 84484; 85025; 85379; 85610; 85730; 87636; 93005; 93041

== ENCOUNTER 2022-06-24 12:40 | Emergency (ER) | payer MEDICARE, MEDICAID ==
[~2022-06-24] VITALS: Ht 157.5 cm; Wt 135.6 kg
[2022-06-24 12:42] VITALS: BP 144/70
[2022-06-24] MEDS ORDERED: NITROGLYCERIN 0.4 MG SL TABS BTL 25'S SL PRN (13:00)
[2022-06-24] MEDS ORDERED: morphine INJ 10 MG/ML 1ML (SYR OR VIAL) IVP STA (13:00)
[2022-06-24] MEDS ORDERED: ONDANSETRON 4 MG/2 ML (SDV) Z0FRAN IVP STA (13:00)
[2022-06-24] MEDS ORDERED: ASPIRIN 81 MG CHEW (CHILDREN'S ASA) PO STA (13:00)
[2022-06-24 13:03] LABS: BILIRUBIN,URINE NEGATIVE (NEGATIVE); CLARITY,URINE CLEAR; COLOR,URINE YELLOW; GLUCOSE, URINE (UA) NEGATIVE (NEGATIVE); KETONES,URINE NEGATIVE (NEGATIVE); LEUKOCYTE ESTERASE ,URINE NEGATIVE (NEGATIVE); NITRITE,URINE NEGATIVE (NEGATIVE); PROTEIN,URINE NEGATIVE (NEGATIVE)
--- NOTE | 2022-06-24 13:11 | ED Chest Pain ---
General Chief Complaint: Chest Pain Stated Complaint: CHEST PAIN Source: patient, old records (Reviewed Psychological Tests Sales Agent notes, Dr. Jackson, from April 2022. ) History of Present Illness Date Seen by Provider: Jun 24, 2022 Time Seen by Provider: 12:44 Initial Comments 66-year-old female presenting with complaints of sharp chest pain that has been constant for over an hour now. She had tried taking sublingual nitroglycerin when the pain started and she felt it made it worse. She did place a nitroglycerin patch on her chest after the pain started. She states that the sharp chest pains are in the center of her chest and are not radiating anywhere. They have been constant for the last hour. She feels they are similar to when she had to have prior stent placement. She had just seen Dr. Duggan, her build manager and Karina Cm, this last week and had a heart cath on June 17. She had a new stent placed with the heart cath. She has not taken any extra aspirin since this pain started an hour ago. She reports that she was just having lunch when the pain started. She has been taking Plavix since the stent was placed last week. She is very anxious and tearful. Timing/Duration: 1-3 hours Severity/Quality: severe, sharp Location: substernal Radiation: no radiation Activities at Onset: other (eating lunch) Prior CP/Workup: angina, cardiac cath, echocardiography, stress test Modifying Factors: worse with nitroglycerin (she felt the nitroglycerin made her symptoms worse) ASA po ICER HAND: No NTG SL ICER HAND: Yes Associated Symptoms: No abdominal pain, No back pain, No diaphoresis, No dizziness, No edema, No fatigue, No fever/chills, No headache, No heartburn, No nausea/vomiting, No rash; shortness of breath; No swelling/lump in chest, No syncope, No weakness Allergies and Home Medications Allergies Coded Allergies: methylprednisolone (Verified Allergy, Mild, 11/05/18) Penicillins (Unverified Allergy, Unknown, 11/05/18) atorvastatin (Verified Allergy, Unknown, 11/05/18) isosorbide (Verified Allergy, Unknown, 11/05/18) ketorolac (Verified Allergy, Unknown, ITCHING, 11/05/18) promethazine (Unverified Allergy, Unknown, hallucinations, 11/05/18) venom-honey bee (Unverified Allergy, Unknown, 11/05/18) Uncoded Allergies: TAPE (Allergy, Unknown, 08/16/13) Patient Home Medication List Home Medication List Reviewed: Yes Acetaminophen (Acetaminophen) 500 Mg Tablet, 500-1,000 MG PO Q8H PRN for PAIN- MILD (1-4), (Reported) Entered as Reported by: YARA JUAREZ on 09/04/15 1558 Aspirin (Aspirin EC) 81 Mg Tablet.dr, 81 MG PO DAILY, (Reported) Entered as Reported by: RAAD LANDRY on 11/22/21 1004 Diltiazem HCl (Diltiazem 24Hr ER) 120 Mg Cap.er.24h, 120 MG PO BID Prescribed by: NATALIYA JACKSON JR, MD on 11/22/21 1219 Ezetimibe (Ezetimibe) 10 Mg Tablet, 10 MG PO HS Prescribed by: NATALIYA JACKSON JR, MD on 11/22/21 1219 Levothyroxine Sodium (Levothyroxine Sodium) 150 Mcg Tablet, 150 MCG PO HS, (Reported) Entered as Reported by: YARA JUAREZ on 09/04/15 1524 Nitroglycerin (Nitroglycerin) 0.4 Mg Tab.subl, 0.4 MG SL UD PRN for CHEST PAIN, (Reported) Entered as Reported by: RAAD LANDRY on 11/22/21 1004 Nitroglycerin (Nitro-Dur 0.6 MG/HR) 0.6 Mg/Hour Patch.td24, 0.6 MG TD DAILY PRN for CHEST PAIN (ANGINA), (Reported) Entered as Reported by: RAAD LANDRY on 11/22/21 1004 Omeprazole (Omeprazole) 40 Mg Capsule.dr, 40 MG PO HS, (Reported) Entered as Reported by: RAAD LANDRY on 11/22/21 1005 Povidone (Soothe Hydration) 1.25 % Drops, 1-2 DROPS OU UD PRN for DRY EYES, (Reported) Entered as Reported by: RAAD LANDRY on 09/13/21 1220 Rosuvastatin Calcium (Rosuvastatin Calcium) 20 Mg Tablet, 40 MG PO HS Prescribed by: NATALIYA JACKSON JR, MD on 11/22/21 1219 Sulfamethoxazole/Trimethoprim (Bactrim Ds Tablet) 1 Each Tablet, 1 EACH PO BID Prescribed by: ANH GROVER on 02/01/22 1841 Warfarin Sodium (Warfarin Sodium) 5 Mg Tablet, 5 MG PO THU,,SAT @HS, (Reported) Entered as Reported by: YARA UJAREZ on 09/04/15 1542 Warfarin Sodium (Warfarin Sodium) 5 Mg Tablet, 7.5 MG PO MARIE,MO,,TH @HS, (Reported) Entered as Reported by: RAAD LANDYR on 01/30/20 1138 Review of Systems Review of Systems Constitutional: No chills, No fever EENTM: No Symptoms Reported Respiratory: See HPI Cardiovascular: See HPI Gastrointestinal: No Symptoms Reported Genitourinary: No Symptoms Reported Musculoskeletal: no symptoms reported Skin: no symptoms reported Psychiatric/Neurological: Anxiety Endocrine: No Symptoms Reported Past Fcykuxv-Wiynth-Houden Hx Patient Social History Tobacco Use?: No Substance use?: No Alcohol Use?: No Pt feels they are or have been: No Immunizations Up To Date Tetanus Booster (TDap): Less than 5yrs PED Vaccines UTD: Yes First/Initial COVID19 Vaccinat: DECLINED Second COVID19 Vaccination Lm: DECLINED Third COVID19 Vaccination Date: DECLINED Seasonal Allergies Seasonal Allergies: No Past Medical History Surgery/Hospitalization HX: SURGERY HX APPY, GALLBLADDER, HYSTERECTOMY, CARDIAC STENTS, COLON CANCER, CHRONIC PE HX, CARDIOMEGALY, CAD, MITRAL AND TRICUSPID VALVE INSUFF, GOPAL, HTN, MORBID OBESITY, GERD, CHRONIC UTI, ANGINA Surgeries: Yes Appendectomy, Cardiac, Coronary Stent, Gallbladder, Hysterectomy, Orthopedic, Thyroidectomy Respiratory: Yes (HAS CPAP--DOES NOT USE ON REGULAR BASIS; P.E. X2) Asthma, Pulmonary Embolism, Sleep Apnea Currently Using CPAP: No Currently Using BIPAP: No Cardiac: Yes (P.E. 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 Sexually Transmitted Disease: No HIV/AIDS: No Genitourinary: Yes Bladder Infection, Kidney Stones Gastrointestinal: Yes (S/P GENI) Gastroesophageal Reflux, Chronic Constipation, Gall Bladder Disease Musculoskeletal: Yes Degenerate Disk Disease, Arthritis, Back Injury, Chronic Back Pain, Spasms Endocrine: Yes (MORBID OBESITY; THYROIDECTOMY) Hypothyroidsim HEENT: Yes Loss of Vision: Bilateral Hearing Impairment: Denies Cancer: No Colon Psychosocial: No Depression Integumentary: No Blood Disorders: Yes (BLOOD CLOTS-DVT/P.E.'S) Adverse Reaction/Blood Tranf: No Family Medical History Arthritis G8 SISTER Cardiovascular disease 03 FATHER Colon cancer 03 MOTHER Completed stroke 03 MOTHER Hypertension 03 MOTHER G8 BROTHER Myocardial infarction 03 MOTHER Thyroid disease G8 SISTER PT WELL KNOWN TO THIS ER, WELL MULTIPLE OTHER ER'S AND URGENT CARES IN THE AREA--SE [place] AND [facility], AND FREQUENTS MULTIPLE PROVIDERS AND HAS RECEIVED MULTITUDE OF RX'S FOR NARCOTICS Physical Exam Vital Signs Vital Signs - First Documented 06/24/22 12:42 Temp 36.1 Pulse 74 Resp 16 B/P (MAP) 144/70 (94) Pulse Ox 95 O2 Delivery Room Air Capillary Refill : Less Than 3 Seconds Height, Weight, BMI Height: 5'2.00" Weight: 297lbs. 8.0oz. 134.986615dr; 53.00 BMI Method:Stated General Appearance: Anxious (tearful at times), Chronically ill, Obese HEENT: PERRL/EOMI, Pharynx Normal Neck: Full Range of Motion, Normal Inspection, Non Tender, Supple Respiratory: Chest Non Tender, Lungs Clear, Normal Breath Sounds, No Accessory Muscle Use, No Respiratory Distress Cardiovascular: Regular Rate, Rhythm, Normal Peripheral Pulses, Systolic Murmur Gastrointestinal: Normal Bowel Sounds, No Pulsatile Mass, Non Tender, Soft Rectal: Deferred Extremity: Normal Capillary Refill, Normal Inspection, No Pedal Edema Neurologic/Psychiatric: Alert, Oriented x3 Skin: Normal Color, Warm/Dry Progress/Results/Core Measures Results/Orders Lab Results Laboratory Tests Test 06/24/22 12:50 06/24/22 14:35 06/24/22 16:28 Range/Units White Blood Count 9.5 4.3-11.0 10^3/uL Red Blood Count 4.40 3.80-5.11 10^6/uL Hemoglobin 12.8 11.5-16.0 g/dL Hematocrit 41 35-52 % Mean Corpuscular Volume 93 80-99 fL Mean Corpuscular Hemoglobin 29 25-34 pg Mean Corpuscular Hemoglobin Concent 31 L 32-36 g/dL Red Cell Distribution Width 15.2 H 10.0-14.5 % Platelet Count 221 130-400 10^3/uL Mean Platelet Volume 10.6 9.0-12.2 fL Immature Granulocyte % (Auto) 0 % Neutrophils (%) (Auto) 71 42-75 % Lymphocytes (%) (Auto) 23 12-44 % Monocytes (%) (Auto) 4 0-12 % Eosinophils (%) (Auto) 1 0-10 % Basophils (%) (Auto) 0 0-10 % Neutrophils # (Auto) 6.7 1.8-7.8 10^3/uL Lymphocytes # (Auto) 2.2 1.0-4.0 10^3/uL Monocytes # (Auto) 0.4 0.0-1.0 10^3/uL Eosinophils # (Auto) 0.1 0.0-0.3 10^3/uL Basophils # (Auto) 0.0 0.0-0.1 10^3/uL Immature Granulocyte # (Auto) 0.0 0.0-0.1 10^3/uL Prothrombin Time 14.6 12.2-14.7 SEC INR Comment 1.1 0.8-1.4 Activated Partial Thromboplast Time 28 24-35 SEC Urine Color YELLOW Urine Clarity CLEAR Urine pH 6.0 5-9 Urine Specific [place] 1.025 H 1.016-1.022 Urine Protein NEGATIVE NEGATIVE Urine Glucose (UA) NEGATIVE NEGATIVE Urine Ketones NEGATIVE NEGATIVE Urine Nitrite NEGATIVE NEGATIVE Urine Bilirubin NEGATIVE NEGATIVE Urine Urobilinogen 0.2 < = 1.0 MG/DL Urine Leukocyte Esterase NEGATIVE NEGATIVE Urine RBC (Auto) NEGATIVE NEGATIVE Urine RBC NONE /HPF Urine WBC RARE /HPF Urine Squamous Epithelial Cells 10-25 H /HPF Urine Crystals NONE /LPF Urine Bacteria LARGE H /HPF Urine Casts NONE /LPF Urine Mucus SMALL H /LPF Urine Culture Indicated NO Sodium Level 133 L 135-145 MMOL/L Potassium Level 3.9 3.6-5.0 MMOL/L Chloride Level 96 L 98-107 MMOL/L Carbon Dioxide Level 22 21-32 MMOL/L Anion Gap 15 H 5-14 MMOL/L Blood Urea Nitrogen 14 7-18 MG/DL Creatinine 0.77 0.60-1.30 MG/DL Estimat Glomerular Filtration Rate 86 BUN/Creatinine Ratio 18 Glucose Level 299 H 70-105 MG/DL Calcium Level 9.2 8.5-10.1 MG/DL Corrected Calcium 9.0 8.5-10.1 MG/DL Magnesium Level 2.2 1.6-2.4 MG/DL Total Bilirubin 0.3 0.1-1.0 MG/DL Aspartate Amino Transf (AST/SGOT) 23 5-34 U/L Alanine Aminotransferase (ALT/SGPT) 17 0-55 U/L Alkaline Phosphatase 107 40-136 U/L Troponin I < 0.30 < 0.30 < 0.30 <0.30 NG/ML Pro-B-Type Natriuretic Peptide 5.6 <125.0 PG/ML Total Protein 7.8 6.4-8.2 GM/DL Albumin 4.2 3.2-4.5 GM/DL Lipase 51 8-78 U/L My Orders Orders - AMANDEEP HAMMOND MD Ua Culture If Indicated (06/24/22 12:46) Cbc With Automated Diff (06/24/22 12:46) Magnesium (06/24/22 12:46) Chest 1 View Ap/Pa Only (06/24/22 12:46) Ekg Tracing (06/24/22 12:46) Comprehensive Metabolic Panel (06/24/22 12:46) Protime With Inr (06/24/22 12:46) Partial Thromboplastin Time (06/24/22 12:46) O2 (06/24/22 12:46) Monitor-Rhythm Ecg Trace Only (06/24/22 12:46) Ed Iv/Invasive Line Start (06/24/22 12:46) Lipase (06/24/22 12:46) Troponin I Fs (06/24/22 12:46) Probnp Fs (06/24/22 12:46) Aspirin Chewable Tablet (Baby Aspirin Ch (06/24/22 13:00) Nitroglycerin 0.4 Mg Btl 25's (Nitrostat (06/24/22 13:00) Morphine Injection (Morphine Injection (06/24/22 13:00) Ondansetron Injection (Zofran Injectio (06/24/22 13:00) Fentanyl Inj (Sublimaze Injection) (06/24/22 14:06) Lorazepam Injection (Ativan Injection) (06/24/22 14:06) Troponin I Fs (06/24/22 14:30) Ekg Tracing (06/24/22 16:30) Troponin I Fs (06/24/22 16:30) Vital Signs/I&O 06/24/22 12:42 Temp 36.1 Pulse 74 Resp 16 B/P (MAP) 144/70 (94) Pulse Ox 95 O2 Delivery Room Air Progress Progress Note #1: Progress Note Potential life-threatening diagnosis of acute myocardial infarction, aortic aneurysm, occlusion of cardiac stent, acute congestive heart failure. Placed on cardiac telemetry monitoring and on my initial interpretation and review her heart rate is in the 60s and a sinus rhythm without ST elevation or ectopy. Obtain peripheral IV access to check labs looking at her complete blood count, comprehensive metabolic profile, troponin, proBNP, magnesium. Ordered urinalysis to look for signs of infection and evaluate her hydration level. Chest x-ray one-view portable to look at her heart and lungs from a structural standpoint looking for signs of infiltrate, effusion, heart failure. Administer 324 mg of aspirin since she has not taken any since the pain started. Morphine 2 mg IV x1 for her chest pain. Zofran 4 mg IV to help prevent nausea from morphine. She had just had a heart cath ThursdayJun 17 and had her 4th stent placed. She has long standing history of CAD and 3 prior stents. Progress Note #2: Time: 13:20 Progress Note I personally reviewed and interpreted her 1 view Chest xray and did not see acute infiltrate or effusion. Appears similar to 1 view CXR from 06/07/2022. Complete blood count showed no elevation of her white blood cell count to indicate an infection. She was more anemic as her hemoglobin was 12.8. Her clotting factors did not show signs of coagulopathy. Her INR was 1.1. Her urinalysis showed slight increase in her specific gravity at 1.025. She has 10- 25 epithelial cells and large amount of bacteria consistent with contaminated specimen. She did not have nitrites or leukocyte esterase to indicate UTI. Progress Note #3: Time: 13:32 Progress Note Comprehensive metabolic profile shows elevated glucose to 299. No elevation of troponin I to indicate acute myocardial infarction. Her troponin I is <0.3. 1408 patient reported that she had no change in her sharp chest pains. Will repeat Troponin at 1430 and try Fentanyl 50 mcg IV for pain and Lorazepam 0.5 mg IV for anxiety and pain. May need to check with Dr. Duggan or build manager director information at [facility] for her complaint of recurrent chest pains with recent stent placement on Jun 17. Progress Note #4: Time: 15:16 Progress Note Patient is pain free after the fentanyl 50 mcg IV with Lorazepam 0.5 mg IV. her repeat troponin I came back still not elevated at <0.3. Will check in with Dr. Duggan or build manager director information in [place] to see if they had any other recommendations since she just had new cardiac stent placed 06/17/2022. 1519 Call placed to [facility] in [place]. I spoke with Karin, a nurse practitioner with Dr. Duggan. She was familiar with the patient. She recommended getting a delta troponin at least 5 hours after symptom onset. This would be in approximately 1 more hour. Provided that continues to be negative and her repeat electrocardiogram is also not showing any acute changes than she could be safely discharged home and not have to be admitted to the hospital. The nurses at Dr. Duggan's office will contact the patient tomorrow to arrange follow-up on Thursday or of this week. Counseled on follow-up and return precautions and make sure that she is taking her medicines as directed. She chews or grinds up her pills and does not swallow them whole. The nurse practitioner asked that I clarify with the patient that she had not missed any doses of Plavix. I reviewed the plan with the patient and family in the room. They were comfortable doing that I had spoken with cardiology from [place] and they were familiar with Karin. Will plan on rechecking the troponin and EKG at 1630 and if still not showing any elevation of the troponin and no acute changes on EKG then we will plan on discharging home to follow-up on Thursday or with Dr. Duggan's office. Progress Note #5: Progress Note Her delta troponin was still less than 0.3. Her repeat electrocardiogram continues to show sinus rhythm without acute ST elevation. Reassured patient that the tests had looked okay today. Again reminded her that Dr. Duggan's office will be contacting her about follow-up on Thursday or this wee k. Return or be seen sooner if having worsening symptoms or new problems. Continue taking your medicines as directed especially the Plavix. Initial ECG Impression Date: Jun 24, 2022 Initial ECG Impression Time: 12:50 Initial ECG Rate: 74 Initial ECG Rhythm: Normal Sinus Initial ECG Comparisson: Unchanged (04/21/2022) Comment Normal sinus rhythm with a heart rate of [address] elevation. QT interval 402 ms with a QTc interval 429 ms. [place] interval 144 ms. Overall appears similar to tracing from April 21, 2022 EKG : EKG Time: 16:28 Rate: 61 Rhythm: Normal Sinus ECG Comparisson: Unchanged Comment My personal interpretation of her repeat electrocardiogram shows a sinus rhythm with a heart rate of 61 bpm. [place] interval 127 ms. She has no acute ST el evation. QT interval 420 ms with a QTc interval 424 ms. Overall this appears similar to the prior tracing from 1250 today. Diagnostic Imaging Diagonstic Imaging: Xray Plain Films/CT/US/NM/MRI: chest Comments [facility], [place] NAME: OTONIEL DUNAWAY [facility] REC#: [id number] PT STATUS: REG ER : 1955 PHYSICIAN: AMANDEEP HAMMOND MD ADMIT DATE: 06/24/22/ER FS Signed Date of Exam:06/24/22 CHEST 1 VIEW AP/PA ONLY CHEST 1 VIEW AP/PA ONLY Indication: Chest pain. Comparison: 05/30/2022 Findings: Stable enlargement of cardiac silhouette. Visible lungs are clear. No pleural effusion or pneumothorax. Impression: 1. No acute cardiopulmonary process by portable radiography. Dictated by: Dictated on workstation # [id number] Dict: 06/24/22 1325 Trans: 06/24/22 1325 [facility] [id number] Interpreted by: JUANY CANCHOLA MD Electronically signed by: JUANY CANCHOLA MD 06/24/22 1325 Reviewed: Reviewed by Me (I reviewed radiologist report at 1328 and they did not see an acute process) Departure Impression Primary Impression: Chest pain in adult Additional Impression: Atypical chest pain Disposition: 01 HOME, SELF-CARE Condition: Stable Departure-Patient Inst. Decision time for Depature: 17:07 Referrals: JOSE MARTIN MOLINA APRN (PCP) Primary Care Physician NO,LOCAL PHYSICIAN (Family) Primary Care Physician Patient Instructions: Chest Pain, Adult ED Add. Discharge Instructions: Your tests today have looked good and do not show signs of the stent being blocked or having new heart damage. Call the clinic tomorrow morning and they will get you an appointment time to see Dr. Duggan or one of his associates in clinic on Thursday or . Continue taking your regular medicines as prescribed All discharge instructions reviewed with patient and/or family. Voiced understanding. AMANDEEP HAMMOND MD Jun 24, 2022 13:11
[2022-06-24 13:12] LABS: BASOPHILS % (AUTO) 0 % (0-10); EOSINOPHILS # (AUTO) 0.1 10^3/uL (0.0-0.3); EOSINOPHILS % (AUTO) 1 % (0-10); HEMATOCRIT 41 % (35-52); HEMOGLOBIN 12.8 g/dL (11.5-16.0); LYMPHOCYTES # (AUTO) 2.2 10^3/uL (1.0-4.0); LYMPHOCYTES % (AUTO) 23 % (12-44); MEAN CORPUSCULAR HEMOGLOBIN 29 pg (25-34); MEAN CORPUSCULAR HGB CONC 31 g/dL (32-36); MEAN CORPUSCULAR VOLUME 93 fL (80-99); MEAN PLATELET VOLUME 10.6 fL (9.0-12.2); MONOCYTES # (AUTO) 0.4 10^3/uL (0.0-1.0); MONOCYTES % (AUTO) 4 % (0-12); NEUTROPHILS # (AUTO) 6.7 10^3/uL (1.8-7.8); NEUTROPHILS % (AUTO) 71 % (42-75); PLATELET COUNT 221 10^3/uL (130-400); WHITE BLOOD COUNT 9.5 10^3/uL (4.3-11.0)
[2022-06-24 13:16] LABS: BACTERIA,URINE LARGE /HPF; WBC,URINE RARE /HPF
[2022-06-24 13:21] LABS: INR 1.1 (0.8-1.4); PROTHROMBIN TIME PATIENT 14.6 SEC (12.2-14.7)
[2022-06-24 13:27] LABS: ALBUMIN 4.2 GM/DL (3.2-4.5); BILIRUBIN,TOTAL 0.3 MG/DL (0.1-1.0); CALCIUM 9.2 MG/DL (8.5-10.1); CREATININE SERUM 0.77 MG/DL (0.60-1.30); MAGNESIUM 2.2 MG/DL (1.6-2.4); POTASSIUM 3.9 MMOL/L (3.6-5.0); TOTAL PROTEIN 7.8 GM/DL (6.4-8.2)
--- NOTE | 2022-06-24 13:27 | Diagnostic Imaging Report ---
CHEST 1 VIEW AP/PA ONLY Indication: Chest pain. Comparison: 05/30/2022 Findings: Stable enlargement of cardiac silhouette. Visible lungs are clear. No pleural effusion or pneumothorax. Impression: 1. No acute cardiopulmonary process by portable radiography. Dictated by: Dictated on workstation # [id number]
[2022-06-24] MEDS ORDERED: LORazepam INJ 2 MG/ML (ATIVAN) VIAL IVP STA (14:06)
[2022-06-24] MEDS ORDERED: fentaNYL INJ 100 MCG/2 ML AMP IVP STA (14:06)
== END 2022-06-24 17:10 | disposition home or self-care (01) ==
LOC: EDUNIT# 12:40 → ER FS 12:41
DX: R07.89 Other chest pain (principal); R73.9 Hyperglycemia, unspecified; E66.01 Morbid (severe) obesity due to excess calories; Z68.43 Body mass index [BMI] 50.0-59.9, adult; Z28.310 Unvaccinated for COVID-19
CPT/HCPCS: 36415; 71045; 80053; 81000; 83690; 83735; 83880; 84484; 85025; 85610; 85730; 93005; 93041

== ENCOUNTER 2022-07-17 10:52 | Emergency (ER) | payer MEDICARE, MEDICAID ==
[~2022-07-17] VITALS: Ht 157 cm; Wt 138.0 kg
[2022-07-17 11:39] LABS: BASOPHILS % (AUTO) 0 % (0-10); EOSINOPHILS # (AUTO) 0.1 10^3/uL (0.0-0.3); EOSINOPHILS % (AUTO) 1 % (0-10); HEMATOCRIT 39 % (35-52); HEMOGLOBIN 12.1 g/dL (11.5-16.0); LYMPHOCYTES # (AUTO) 1.1 10^3/uL (1.0-4.0); LYMPHOCYTES % (AUTO) 17 % (12-44); MEAN CORPUSCULAR HEMOGLOBIN 29 pg (25-34); MEAN CORPUSCULAR HGB CONC 31 g/dL (32-36); MEAN CORPUSCULAR VOLUME 94 fL (80-99); MEAN PLATELET VOLUME 10.5 fL (9.0-12.2); MONOCYTES # (AUTO) 0.5 10^3/uL (0.0-1.0); MONOCYTES % (AUTO) 7 % (0-12); NEUTROPHILS # (AUTO) 4.9 10^3/uL (1.8-7.8); NEUTROPHILS % (AUTO) 75 % (42-75); PLATELET COUNT 177 10^3/uL (130-400); WHITE BLOOD COUNT 6.5 10^3/uL (4.3-11.0)
--- NOTE | 2022-07-17 11:40 | Diagnostic Imaging Report ---
INDICATION: Chest pain and shortness of breath. Portable chest 11:36 AM FINDINGS: There is a loop recorder projecting over the left lower chest. Heart is mildly enlarged. Pulmonary vascularity is normal. Lungs are clear. There are no effusions or pneumothoraces. IMPRESSION: Cardiomegaly without evidence of pulmonary venous hypertension. Dictated by: Dictated on workstation # [id number]
[2022-07-17 11:42] LABS: ALBUMIN 3.8 GM/DL (3.2-4.5); POTASSIUM 4.1 MMOL/L (3.6-5.0)
[2022-07-17 11:44] LABS: INR 1.3 (0.8-1.4); PROTHROMBIN TIME PATIENT 16.2 SEC (12.2-14.7); TOTAL PROTEIN 8.6 GM/DL (6.4-8.2)
[2022-07-17 11:46] LABS: BILIRUBIN,TOTAL 0.3 MG/DL (0.1-1.0)
[2022-07-17 11:48] LABS: CREATININE SERUM 0.88 MG/DL (0.60-1.30)
--- NOTE | 2022-07-17 11:53 | ED Chest Pain ---
General Chief Complaint: Chest Pain Stated Complaint: CHEST PAIN | LUNG PAIN Nursing Triage Note: ARRIVED VIA WC FROM [facility] WITH CHEST PAIN AND SOA X2 DAYS. HEART STENTS PLACED AT [facility] X2 WEEK AGO. Source: patient Exam Limitations: no limitations History of Present Illness Date Seen by Provider: Jul 17, 2022 Time Seen by Provider: 11:25 Initial Comments Here with some right-sided chest pain notes tightness and severity in the mid chest that is nonradiating. Occasionally some sharp pain there. Denies cough or breathing problems. She did have stents placed at [facility] 2 weeks ago. She has not had any problems since then. She states that she did have some chest discomfort around that time as well but was on the left side different. She is also complaining of sinus congestion and fullness that has been going on for months and is worse currently. She was seen by her primary care provider and no new treatment was initiated. This has been within the last couple of weeks. She denies nausea, vomiting or diarrhea. She does have occasional shortness of breath. Here for further evaluation. She did come to the clinic with these concerns. She is currently on Plavix. Previously on warf lauri and that has been stopped. Timing/Duration: 2-3 days Severity/Quality: mild, pressure, tightness Location: central (Right-sided middle) Radiation: no radiation Activities at Onset: none Prior CP/Workup: cardiac cath ASA po CLIP BAKER: Yes NTG SL CLIP BAKER: No Associated Symptoms: No nausea/vomiting; shortness of breath; No weakness Allergies and Home Medications Allergies Coded Allergies: methylprednisolone (Verified Allergy, Mild, 11/05/18) Penicillins (Unverified Allergy, Unknown, 11/05/18) atorvastatin (Verified Allergy, Unknown, 11/05/18) isosorbide (Verified Allergy, Unknown, 11/05/18) ketorolac (Verified Allergy, Unknown, ITCHING, 11/05/18) promethazine (Unverified Allergy, Unknown, hallucinations, 11/05/18) venom-honey bee (Unverified Allergy, Unknown, 11/05/18) Uncoded Allergies: TAPE (Allergy, Unknown, 08/16/13) Patient Home Medication List Home Medication List Reviewed: Yes Acetaminophen (Acetaminophen) 500 Mg Tablet, 500-1,000 MG PO Q8H PRN for PAIN- MILD (1-4), (Reported) Entered as Reported by: YARA JUAREZ on 09/04/15 1558 Aspirin (Aspirin EC) 81 Mg Tablet.dr, 81 MG PO DAILY, (Reported) Entered as Reported by: RAAD LANDRY on 11/22/21 1004 Diltiazem HCl (Diltiazem 24Hr ER) 120 Mg Cap.er.24h, 120 MG PO BID Prescribed by: NATALIYA ROBERSON JR, MD on 11/22/21 1219 Ezetimibe (Ezetimibe) 10 Mg Tablet, 10 MG PO HS Prescribed by: NATALIYA ROBERSON JR, MD on 11/22/21 1219 Levothyroxine Sodium (Levothyroxine Sodium) 150 Mcg Tablet, 150 MCG PO HS, (Reported) Entered as Reported by: YARA JUAREZ on 09/04/15 1524 Nitroglycerin (Nitroglycerin) 0.4 Mg Tab.subl, 0.4 MG SL UD PRN for CHEST PAIN, (Reported) Entered as Reported by: RAAD LANDRY on 11/22/21 1004 Nitroglycerin (Nitro-Dur 0.6 MG/HR) 0.6 Mg/Hour Patch.td24, 0.6 MG TD DAILY PRN for CHEST PAIN (ANGINA), (Reported) Entered as Reported by: RAAD LANDRY on 11/22/21 1004 Omeprazole (Omeprazole) 40 Mg Capsule.dr, 40 MG PO HS, (Reported) Entered as Reported by: RAAD LANDRY on 11/22/21 1005 Povidone (Soothe Hydration) 1.25 % Drops, 1-2 DROPS OU UD PRN for DRY EYES, (Reported) Entered as Reported by: RAAD LANDRY on 09/13/21 1220 Rosuvastatin Calcium (Rosuvastatin Calcium) 20 Mg Tablet, 40 MG PO HS Prescribed by: NATALIYA ROBERSON JR, MD on 11/22/21 1219 Sulfamethoxazole/Trimethoprim (Bactrim Ds Tablet) 1 Each Tablet, 1 EACH PO BID Prescribed by: ANH GROVER on 02/01/22 1841 Warfarin Sodium (Warfarin Sodium) 5 Mg Tablet, 5 MG PO WED,FR,SAT @HS, (Reported) Entered as Reported by: YARA JUAREZ on 09/04/15 1542 Warfarin Sodium (Warfarin Sodium) 5 Mg Tablet, 7.5 MG PO MARIE,MO,,TH @HS, (Reported) Entered as Reported by: RAAD LANDRY on 01/30/20 1138 Review of Systems Review of Systems Constitutional: see HPI; No chills, No fever EENTM: Nose Congestion, Other (Sinus congestion and fullness) Respiratory: Denies Cough; Shortness of Air Cardiovascular: Chest Pain; Denies Edema Gastrointestinal: Denies Nausea, Denies Vomiting Genitourinary: No Symptoms Reported Musculoskeletal: no symptoms reported Skin: no symptoms reported Psychiatric/Neurological: No Symptoms Reported Past Qjterqs-Sfizem-Xvwkrc Hx Patient Social History Tobacco Use?: No Substance use?: No Alcohol Use?: No Immunizations Up To Date Tetanus Booster (TDap): Less than 5yrs PED Vaccines UTD: Yes First/Initial COVID19 Vaccinat: DECLINED Second COVID19 Vaccination Lm: DECLINED Third COVID19 Vaccination Date: DECLINED Seasonal Allergies Seasonal Allergies: No Past Medical History Surgery/Hospitalization HX: SURGERY HX APPY, GALLBLADDER, HYSTERECTOMY, CARDIAC STENTS, COLON CANCER, CHRONIC PE HX, CARDIOMEGALY, CAD, MITRAL AND TRICUSPID VALVE INSUFF, GOPAL, HTN, MORBID OBESITY, GERD, CHRONIC UTI, ANGINA Surgeries: Yes Appendectomy, Cardiac, Coronary Stent, Gallbladder, Hysterectomy, Orthopedic, Thyroidectomy Respiratory: Yes (HAS CPAP--DOES NOT USE ON REGULAR BASIS; P.E. X2) Asthma, Pulmonary Embolism, Sleep Apnea Currently Using CPAP: No Currently Using BIPAP: No Cardiac: Yes (P.E. 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 Sexually Transmitted Disease: No HIV/AIDS: No Genitourinary: Yes Bladder Infection, Kidney Stones Gastrointestinal: Yes (S/P GENI) Gastroesophageal Reflux, Chronic Constipation, Gall Bladder Disease Musculoskeletal: Yes Degenerate Disk Disease, Arthritis, Back Injury, Chronic Back Pain, Spasms Endocrine: Yes (MORBID OBESITY; THYROIDECTOMY) Hypothyroidsim HEENT: Yes Loss of Vision: Bilateral Hearing Impairment: Denies Cancer: No Colon Psychosocial: No Depression Integumentary: No Blood Disorders: Yes (BLOOD CLOTS-DVT/P.E.'S) Adverse Reaction/Blood Tranf: No Family Medical History Reviewed Nursing Family Hx Arthritis G8 SISTER Cardiovascular disease 03 FATHER Colon cancer 03 MOTHER Completed stroke 03 MOTHER Hypertension 03 MOTHER G8 BROTHER Myocardial infarction 03 MOTHER Thyroid disease G8 SISTER PT WELL KNOWN TO THIS ER, WELL MULTIPLE OTHER ER'S AND URGENT CARES IN THE AREA--[facility], AND FREQUENTS MULTIPLE PROVIDERS AND HAS RECEIVED MULTITUDE OF RX'S FOR NARCOTICS Physical Exam Vital Signs Vital Signs - First Documented 07/17/22 11:09 Temp 36.1 Pulse 66 Resp 16 B/P (MAP) 159/81 (107) Pulse Ox 94 O2 Delivery Room Air Capillary Refill : Less Than 3 Seconds Height, Weight, BMI Height: 5'2.00" Weight: 297lbs. 8.0oz. [phone]; 55.00 BMI Method:Stated General Appearance: No Apparent Distress, WD/WN, Obese HEENT: PERRL/EOMI, Other (Moderate nasal congestion with clear to purulent rhinorrhea and nasal erythema bilateral) Neck: Non Tender, Supple Respiratory: Lungs Clear, Normal Breath Sounds Cardiovascular: Regular Rate, Rhythm, No Murmur Gastrointestinal: Non Tender, Soft Extremity: Normal Range of Motion, Non Tender Neurologic/Psychiatric: Alert, Oriented x3 Skin: Normal Color, Warm/Dry Progress/Results/Core Measures Results/Orders Lab Results Laboratory Tests Test 07/17/22 11:17 Range/Units White Blood Count 6.5 4.3-11.0 10^3/uL Red Blood Count 4.14 3.80-5.11 10^6/uL Hemoglobin 12.1 11.5-16.0 g/dL Hematocrit 39 35-52 % Mean Corpuscular Volume 94 80-99 fL Mean Corpuscular Hemoglobin 29 25-34 pg Mean Corpuscular Hemoglobin Concent 31 L 32-36 g/dL Red Cell Distribution Width 15.5 H 10.0-14.5 % Platelet Count 177 130-400 10^3/uL Mean Platelet Volume 10.5 9.0-12.2 fL Immature Granulocyte % (Auto) 1 % Neutrophils (%) (Auto) 75 42-75 % Lymphocytes (%) (Auto) 17 12-44 % Monocytes (%) (Auto) 7 0-12 % Eosinophils (%) (Auto) 1 0-10 % Basophils (%) (Auto) 0 0-10 % Neutrophils # (Auto) 4.9 1.8-7.8 10^3/uL Lymphocytes # (Auto) 1.1 1.0-4.0 10^3/uL Monocytes # (Auto) 0.5 0.0-1.0 10^3/uL Eosinophils # (Auto) 0.1 0.0-0.3 10^3/uL Basophils # (Auto) 0.0 0.0-0.1 10^3/uL Immature Granulocyte # (Auto) 0.0 0.0-0.1 10^3/uL Prothrombin Time 16.2 H 12.2-14.7 SEC INR Comment 1.3 0.8-1.4 Activated Partial Thromboplast Time 28 24-35 SEC Sodium Level 137 135-145 MMOL/L Potassium Level 4.1 3.6-5.0 MMOL/L Chloride Level 104 98-107 MMOL/L Carbon Dioxide Level 24 21-32 MMOL/L Anion Gap 9 5-14 MMOL/L Blood Urea Nitrogen 10 7-18 MG/DL Creatinine 0.88 0.60-1.30 MG/DL Estimat Glomerular Filtration Rate 73 BUN/Creatinine Ratio 11 Glucose Level 151 H 70-105 MG/DL Calcium Level 9.0 8.5-10.1 MG/DL Corrected Calcium 9.2 8.5-10.1 MG/DL Magnesium Level 2.0 1.6-2.4 MG/DL Total Bilirubin 0.3 0.1-1.0 MG/DL Aspartate Amino Transf (AST/SGOT) 22 5-34 U/L Alanine Aminotransferase (ALT/SGPT) 22 0-55 U/L Alkaline Phosphatase 81 40-136 U/L Myoglobin 45.8 10.0-92.0 NG/ML Troponin I < 0.028 <0.028 NG/ML B-Type Natriuretic Peptide 13.9 <100.0 PG/ML Total Protein 8.6 H 6.4-8.2 GM/DL Albumin 3.8 3.2-4.5 GM/DL My Orders Orders - VINITA DAWN MD Chest 1 View, Ap/Pa Only (07/17/22 11:29) Cbc With Automated Diff (07/17/22 11:31) Magnesium (07/17/22 11:31) Comprehensive Metabolic Panel (07/17/22 11:31) Myoglobin Serum (07/17/22 11:31) Protime With Inr (07/17/22 11:31) Partial Thromboplastin Time (07/17/22 11:31) O2 (07/17/22 11:31) Monitor-Rhythm Ecg Trace Only (07/17/22 11:31) Lipid Panel (07/18/22 06:00) Ed Iv/Invasive Line Start (07/17/22 11:31) Bnp Nelly (07/17/22 11:31) Troponin I Douglas (07/17/22 11:31) Ekg Tracing (07/17/22 11:31) Vital Signs/I&O 07/17/22 11:09 Temp 36.1 Pulse 66 Resp 16 B/P (MAP) 159/81 (107) Pulse Ox 94 O2 Delivery Room Air Blood Pressure Mean: 107 Progress Progress Note : Progress Note Seen and evaluated. IV, labs including CBC, CMP, troponin, myoglobin and coags ordered. Chest x-ray ordered. Monitor patient. Differential includes pneumonia, pulmonary edema, sinusitis 1302: All labs have been reviewed. Chest x-ray shows cardiomegaly without infiltrate on my interpretation. CBC is normal. Coags are normal with slightly elevated PTT but she is on clopidogrel. Chemistries show normal electrolytes and normal LFTs with normal serum creatinine. Glucose is slightly elevated at 151. Troponin is negative. Myoglobin and BNP are also negative. Overall no findings for acute cardiac event or pulmonary edema. She is not hypoxic. EKG does not show any significant abnormality. We will initiate treatment for sinusitis with cefuroxime. Discharged home with return precautions. Patient and family verbalized understand instructions and agreement with plan. Initial ECG Impression Date: Jul 17, 2022 Initial ECG Impression Time: 11:10 Initial ECG Rate: 67 Initial ECG Rhythm: Normal Sinus Comment Sinus rhythm with normal axis. No evidence of ST elevation [place]. Interpreted by me. Diagnostic Imaging Diagonstic Imaging: Xray Plain Films/CT/US/NM/MRI: chest Comments [facility] [place], [place] NAME: OTONIEL DUNAWAY REC#: [id number] PT STATUS: REG ER : 1955 PHYSICIAN: VINITA DAWN MD ADMIT DATE: 07/17/22/ER Signed Date of Exam:07/17/22 CHEST 1 VIEW, AP/PA ONLY INDICATION: Chest pain and shortness of breath. Portable chest 11:36 AM FINDINGS: There is a loop recorder projecting over the left lower chest. Heart is mildly enlarged. Pulmonary vascularity is normal. Lungs are clear. There are no effusions or pneumothoraces. IMPRESSION: Cardiomegaly without evidence of pulmonary venous hypertension. Dictated by: Dictated on workstation # [id number] Dict: 07/17/22 1135 Trans: 07/17/22 1148 [id number] Interpreted by: VINITA OLIVAS MD Electronically signed by: VINITA OLIVAS MD 07/17/22 1148 Departure Impression Primary Impression: Chest pain Qualified Codes: R07.9 - Chest pain, unspecified Additional Impression: Acute sinusitis Qualified Codes: J01.90 - Acute sinusitis, unspecified Disposition: 01 HOME, SELF-CARE Condition: Stable Departure-Patient Inst. Decision time for Depature: 13:14 Referrals: JOSE MARTIN MOLINA APRN (PCP) Primary Care Physician NO,LOCAL PHYSICIAN (Family) Primary Care Physician Patient Instructions: Chest Pain, Sinusitis, Adult ED Add. Discharge Instructions: All discharge instructions reviewed with patient and/or family. Voiced understanding. Take medications as directed. You may take Tylenol/acetaminophen 1000 mg every 6-8 hours as needed for pain. Drink an adequate amount of fluids and get plenty of rest. You may use Afrin nasal spray or the generic, 12-hour relief, 2 sprays to each nostril twice daily for 3 days only and then stop. Do not use more than 3 days. Follow-up with your doctor in a few days for recheck. Return for worse pain, fever, vomiting, weakness, breathing problems or other concerns as needed. Scripts Cefuroxime Axetil (Cefuroxime) 250 Mg Tablet 250 MG PO BID for 10 Days, #20 TAB 0 Refills Prov: VINITA DAWN MD 07/17/22 Copy Copies To 1: JOSE ALBERTO ARIZA TIMOTHY D MD Jul 17, 2022 11:53
[2022-07-17] MEDS ORDERED: CEFU250T80 PO (13:16)
[2022-07-17 13:25] VITALS: BP 136/84
== END 2022-07-17 13:26 | disposition home or self-care (01) ==
LOC: EDUNIT# 10:52 → ER 10:54
DX: R07.89 Other chest pain (principal); J01.90 Acute sinusitis, unspecified; I51.7 Cardiomegaly; R06.02 Shortness of breath; R79.1 Abnormal coagulation profile; Z95.5 Presence of coronary angioplasty implant and graft; E66.01 Morbid (severe) obesity due to excess calories; Z88.1 Allergy status to other antibiotic agents; Z79.02 Long term (current) use of antithrombotics/antiplatelets; Z68.43 Body mass index [BMI] 50.0-59.9, adult; Z28.310 Unvaccinated for COVID-19
CPT/HCPCS: 36415; 71045; 80053; 83735; 83874; 83880; 84484; 85025; 85610; 85730; 93005; 93041